=== PATIENT | male | born 1950 | race Caucasian/White ===

== ENCOUNTER 2021-10-21 22:22 | Inpatient (IN) | payer MEDICARE, BC, SELFPAY ==
[2021-10-21 22:27] VITALS: BP 144/82; RESP 22; TEMP 35.9; O2SAT 96
--- NOTE | 2021-10-21 23:09 | CRLHL7_ITS ---
For Patients: As a result of the 21st Century Cures Act, medical imaging exams and procedure reports are released immediately into your electronic medical record. You may view this report before your referring provider. If you have questions, please contact your health care provider. INDICATION: Three days of vomiting and diarrhea. Increasing abdominal pain in the lower right side. History of kidney transplant, liver transplant, and bilateral total hip arthroplasty. COMPARISON: None available TECHNIQUE: CT examination of the abdomen and pelvis was performed without contrast enhancement using 3 mm thick axial sections from the lung bases through the pubic symphysis. Oral contrast was not administered. Please note that all CT scans at this facility use dose modulation, iterative reconstruction, and/or weight-based dosing when appropriate to reduce radiation dose to as low as reasonably achievable. FINDINGS: In the abdomen, the unenhanced liver is small, measuring 12.9 centimeters in length. Multiple surgical clips are seen along the inferior margin of the liver and around the IVC consistent with liver transplantation. The spleen is mildly enlarged, measuring 14.1 centimeters in length, with no sign of any mass. The pancreas and adrenals are normal in appearance. There is mild bilateral renal atrophy. The kidneys are otherwise normal in appearance. The gallbladder is absent, consistent with liver transplantation. The abdominal aorta is normal in caliber with no sign of dilatation. There is no sign of retroperitoneal mass or adenopathy. The stomach and loops of small bowel in the abdomen are normal in appearance. There is moderate diverticulosis of the colon throughout the abdomen, with no sign of diverticulitis. The cecum is located in the right mid abdomen, with the appendix extending into the right lower quadrant. The appendix shows no sign of inflammatory process to suggest appendicitis. There is a small fat containing periumbilical hernia. There is a right anterior superior pelvic transplant kidney with no sign of hydronephrosis. There is severe sigmoid diverticulosis without evidence of diverticulitis. The loops of small bowel and rectum in the pelvis are otherwise normal in appearance. The area of the prostate in inferior urinary bladder is obscured by prominent streak artifact from bilateral total hip prostheses. There is no sign of pelvic or inguinal mass or adenopathy. There is a moderate-sized fat containing left inguinal hernia. There is no sign of free air or free fluid in the abdomen or pelvis. The lung bases are clear. There is grade 1 anterior subluxation of L4 on L5 with mild L4-5 disc degenerative disease. IMPRESSION: Nothing seen to explain the patient`s vomiting or diarrhea. No sign of bowel dilatation or any inflammatory process involving the bowel. Nothing seen to explain the patient`s right lower abdominal pain, with normal appearance of the appendix and normal appearance of the right pelvic transplant kidney. CT of the abdomen shows moderate diverticulosis of the entire colon in the abdomen with no sign of diverticulitis. Satisfactory appearance of transplant liver. Mild splenomegaly of uncertain etiology. Mild bilateral renal atrophy. CT of the pelvis shows severe diverticulosis of the sigmoid colon with no sign of diverticulitis. Moderate-sized, fat containing left inguinal hernia. Right pelvic transplant kidney is normal in appearance. Please note that all CT scans at this facility use dose modulation, iterative reconstruction, and/or weight-based dosing when appropriate to reduce radiation dose to as low as reasonably achievable. Dictated by Zeb Elias MD @ 10/22/2021 12:10:50 AM (Electronically Signed)
[2021-10-21 23:13] LABS: Glucose, Point-of-Care* 208 mg/dl (60-115)
[2021-10-21 23:23] LABS: HCO3 VBG 20 mmol/L (21-28); PCO2 VBG 24 mmHG (40-50); PO2 VBG 42.4 mmHG (25-47); pH VBG 7.531 (7.32-7.43)
[2021-10-21] MEDS: ONDANSETRON 2 MG/ML inj 4 MG IVP (23:28)
[2021-10-21] MEDS: HYDROmorphone 0.5 mg/0.5 ml inj IVP (23:28)
[2021-10-21] MEDS: 0.9 % SODIUM CHLORIDE 1000 ml 1,000 ML IV (23:29)
[2021-10-21 23:30] VITALS: BP 174/91; PULSE 74; RESP 16; O2SAT 94
[2021-10-21 23:36] LABS: Basophils Percent Auto 0.3 % (0.0-3.0); Eosinophils Percent Auto 0.6 % (0.0-7.0); Hematocrit 36.8 % (37.0-53.0); Hemoglobin* 12.9 gm/dL (13.5-17.5); Immature Granulocytes Abs Auto 0.01 K/uL (0.00-0.30); Lymphocytes Percent Auto 8.5 % (20-44); Mean Corpuscular HGB Conc 35 gm/dL (32-36); Mean Corpuscular Hemoglobin 34 pg (26-34); Mean Corpuscular Volume 96 fL (80-100); Monocytes Percent Auto 7.1 % (0.0-11.0); Neutrophils Percent Auto 83.2 % (42.0-72.0); Platelet Count* 145 K/uL (140-440); RDW Coefficient of Variation % 14.8 % (11.5-15.5); Red Blood Count 3.83 m/uL (4.30-5.90); White Blood Count* 3.54 K/uL (4.50-11.00)
[2021-10-21 23:43] LABS: Albumin* 4.7 g/dL (3.3-5.0); Chloride* 101 mmol/L (96-114)
[2021-10-21 23:44] LABS: Potassium* 5.8 mmol/L (3.6-5.1); Sodium* 134 mmol/L (135-149)
[2021-10-21 23:46] LABS: Bilirubin Direct* 0.4 mg/dL (0.0-0.5); Bilirubin Total* 3.8 mg/dL (0.1-1.5); Carbon Dioxide* 18 mmol/L (20-32); Creatinine* 1.9 mg/dL (0.5-1.5); Estimated Glomerular Filt Rate 37.71; Lipase* 39 U/L (23-300); Total Protein* 7.6 g/dL (6.0-8.3)
[2021-10-21 23:46] LABS: Slide Review Reflex No
[2021-10-21 23:47] LABS: Alanine Aminotransferase* 12 U/L (4-50); Alkaline Phosphatase* 98 U/L (40-150); Aspartate Amino Transferase* 30 U/L (12-35); Blood Urea Nitrogen* 24 mg/dL (7-30); Calcium* 9.7 mg/dL (8.4-10.6); Ethanol* < 0.01 % (0.01-0.03); Glucose* 199 mg/dL (60-115)
[2021-10-22] VITALS (34 sets, daily range): BP systolic 138–206; BP diastolic 61–123; PULSE 82–123; RESP 10–23; TEMP 36.4–36.7; O2SAT 92–100; BMI 29231.5
[2021-10-22 00:34] LABS: SARS PCR* Negative SARS-CoV-2 (Negative)
[2021-10-22] MEDS: 0.9 % SODIUM CHLORIDE 1000 ml 1,000 ML IV ×2 (00:58→15:31)
[2021-10-22 01:04] LABS: Influenza Type A Negative (Negative); Influenza Type B Negative (Negative)
[2021-10-22 01:07] LABS: Appearance Urine Clear (Clear); Bilirubin Urine 1+ (Negative); Blood Urine Negative (Negative); Color Urine Yellow (Yellow); Glucose Urine Negative (Negative); Ketones Urine 4+ (Negative); Leukocyte Esterase Urine Negative (Negative); Nitrite Urine Negative (Negative); Protein Urine Trace (Negative); Specific Gravity Urine 1.015 (1.000-1.030); Urobilinogen Urine 0.2 (0.2-1.0)
[2021-10-22 01:24] LABS: Bacteria Urine Few; RBC Urine 0-2 (0-2); Squamous Epithelial Cell Urine Few (None-Few); WBC Urine 0-2 (0-5)
[2021-10-22] MEDS: diphenhydrAMINE 50 MG/ML inj 25 MG IVP (02:20)
[2021-10-22] MEDS: HYDROmorphone 0.5 mg/0.5 ml inj 1 MG IVP ×5 (02:21→22:48)
[2021-10-22] MEDS: METOCLOPRAMIDE HCL 10 MG in 0.9 % SODIUM CHLORIDE 100 ml 100 ML 306 MG IVPB (02:23)
[2021-10-22] MEDS: GI COCKTAIL (VISC LIDO/ANTACID) 30 ML PO (02:42)
[2021-10-22 04:47] LABS: HCO3 VBG 22 mmol/L (21-28); PCO2 VBG 34 mmHG (40-50); PO2 VBG 56.4 mmHG (25-47); pH VBG 7.427 (7.32-7.43)
[2021-10-22 04:57] LABS: Troponin, Point-of-Care* 0.06 ng/ml (0.01-0.04)
--- NOTE | 2021-10-22 04:58 | ED.NURSE ---
POC Trop 0.06 update to MD Triplett.
[2021-10-22 05:02] LABS: Chloride* 102 mmol/L (96-114); Sodium* 136 mmol/L (135-149)
--- NOTE | 2021-10-22 05:04 | ED.NURSE ---
Patient medical history obtained from previous H&P on [facility].
[2021-10-22 05:05] LABS: Blood Urea Nitrogen* 25 mg/dL (7-30); Carbon Dioxide* 20 mmol/L (20-32); Creatinine* 1.6 mg/dL (0.5-1.5); Estimated Glomerular Filt Rate 46.35
[2021-10-22 05:06] LABS: Calcium* 8.9 mg/dL (8.4-10.6); Glucose* 247 mg/dL (60-115)
[2021-10-22 05:56] LABS: Troponin I* 0.12 ng/mL (0.01-0.04)
--- NOTE | 2021-10-22 05:56 | ED.NURSE ---
critical : Trop I 0.12 updated to MD Triplett.
[2021-10-22] MEDS: HYDROCODONE-ACETAMIN 5-325 MG 1 TAB 2 TAB PO (06:00)
--- NOTE | 2021-10-22 06:22 | ED_ITS ---
HPI - Nausea/Vomiting/Diarrhea General Chief complaint: Nausea/Vomiting/Diarrhea Stated complaint: n/v/d Time Seen by Provider: 10/21/21 22:32 Source: patient, RN notes reviewed and old records reviewed History of Present Illness HPI Narrative: 71-year-old man presenting to the emergency department brought by [facility] with complaint of 3 days of nausea vomiting diarrhea. He is not noted any hematochezia or hematemesis or melena; Says his vomit this and diarrhea look the same. His white T-shirt is stained with yellow-green emesis. Last noted in this facility dated September of 2020 where he received surgery for osteomyelitis of the right 2nd toe with diabetes. He had said he took his insulin pump off today noting it was empty and he was too sick to fill it. He also has not been eating anyway. Stomach pain began with the vomiting and diar eva. Is says he has a similar history with diverticulitis. For chronic pain does have oxycodone available but says he has not been able to take it though is continuing treatment with his fentanyl patch indicates his right upper arm. His Said he had not taken oxycodone regularly anyway. otherwise no recent medication changes. Underlying history of renal and liver transplant. He has not had any fever. is not short of breath other than when vomiting. He is not complaining of chest pain; just pain all over initially. Is not complaining of any dysuria. is thirsty. Notes no alcohol ingestion for 5 years or so. 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 Abstracted [facility] record. Congestive heart failure Chronic diastolic History of alcohol abuse History of colon polyps Erectile dysfunction History of folic acid deficiency (non-anemic) GERD (gastroesophageal reflux disease) Controlled substance agreement signed w/ [facility] on 04/19/18. See scanned note. Tendinosis of left shoulder No surgery rcmd. See scanned 07/19/17 FBO note [place]. 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 See scanned [facility] optometry note. History of hernia repair History of bilateral hip arthroplasty PABLO L 08/30/07, R 07/22/10. See scanned Op notes. History of decompression of ulnar nerve Left History of kidney transplant surgery/partial amputation right 2nd toe for osteomyelitis Historical Problems Medical Problems: Depression Reason for Deletion: Mr. Mora does not recall his medications - this list is from his last clinic visit Fentanyl Patch (Fentanyl Patch) 25 Mcg/Hr Patch 1 PATCH TD Q72H, #10 PATCH 0 Refills Prov: Rubén Boyle MD 09/03/21 Oxycodone Hcl (Oxycodone Hcl) 10 Mg Tab 10 MG PO TID PRN for Severe Pain, #90 TAB 0 Refills Prov: Rubén Boyle MD 08/14/21 Furosemide (Lasix) 20 Mg Tab 20 MG PO DAILY, #90 TAB Prov: Rubén Boyle MD 08/11/21 Atorvastatin Calcium (Atorvastatin Calcium) 20 Mg Tab 20 MG PO DAILY, #90 TAB 3 Refills Prov: Rubén Boyle MD 08/11/21 Multiple Vitamin (Tab-A-Stacy) Tab 1 EA PO DAILY, #90 TAB 3 Refills Prov: Rubén Boyle MD 08/11/21 Citalopram Hydrobromide (Citalopram Hydrobromide) 40 Mg Tab 40 MG PO DAILY, #90 TABLET 3 Refills Prov: Rubén Boyle MD 08/11/21 Cholecalciferol (Vitamin D) Unknown Strength Cap PO DAILY, CAP Reported 08/11/21 Tamsulosin Hcl (Tamsulosin Hcl) 0.4 Mg Cap 0.4 MG PO DAILY, #90 CAP 3 Refills Prov: Rubén Boyle MD 07/14/21 Gabapentin (Gabapentin) 600 Mg Tab 1200 MG PO TID PRN for Pain, #540 TAB 1 Refill Prov: Rubén Boyle MD 08/06/20 Insulin Aspart (Novolog Vial) 100 Unit/Ml Inj 100 UNIT SUBQ DAILY, #10 BOTTLE 12 Refills Prov: Rubén Boyle MD 07/08/20 Doxazosin Mesylate (Cardura) 2 Mg Tab 2 MG PO HS, #30 TAB 1 Refill Prov: Rubén Boyle MD 11/07/19 Tadalafil (Cialis) 20 Mg Tab 20 MG PO PRN, #3 TAB Prov: Rubén Boyle MD 05/17/19 Magnesium Oxide (Magnesium Oxide) 400 Mg Tab 400 MG PO QPM, #100 TAB Reported 07/07/18 Omeprazole (Omeprazole) 20 Mg Cap 20 MG PO DAILY, #30 CAP Reported 07/07/18 Azathioprine (Azathioprine) 50 Mg Tab 3 TAB PO QAM, #90 TAB Reported 07/07/18 Tacrolimus (Tacrolimus) 0.5 Mg Cap 2-3 CAP OR BID, CAP Reported 07/07/18 Aspirin (Aspir-81) 81 Mg Tab 81 MG PO DAILY, TAB Reported 07/07/18 Related Data Allergies Allergy/AdvReac Type Severity Reaction Status Date / Time No Known Drug Allergies Allergy Verified 10/22/21 02:39 Review of Systems Status of ROS: Reports: 6 or more systems reviewed and unremarkable except as noted in History and below PFSH [facility] Medical History CHF (congestive heart failure) Diabetic neuropathy Diverticulosis GERD (gastroesophageal reflux disease) History of ETOH abuse HTN (hypertension) Hyperlipidemia Mitral regurgitation Type 2 diabetes mellitus Surgical History History of hip replacement Hx of hernia repair Kidney transplant recipient Liver transplant recipient Transplant recipient Social History Smoking Status: Former smoker Do you use any of these nicotine containing products: None Second hand tobacco smoke exposure: No How often do you have a drink containing alcohol: never AUDIT-C Alcohol total score: 0 Non-prescribed substance use: denies use Exam Narrative: Exam Narrative: Mr. Mora does seem to be rather uncomfortable. When I enter the room I believe I smelled ketones. has an emesis bag with him. White T-shirt stained With yellow-green drops of emesis. He is easily conversant. Fully alert But seems tired/fatigued. intermittently breathless. Cranial nerves 2-12 to be intact. Head is atraumatic. the looks to be a small subconjunctival hemorrhage in the inferolateral left eye sclera. Oropharynx with whitish-yellow staining to his tongue, sticky. He is missing some teeth. No inflammatory changes. neck is supple without LA. lungs appear to be clear with equal expansion excursion. CV RRR. 2/6 mid systolic murmur. ( murmur has been noted prior) No gallops no rubs. Abdomen with bowel sounds present. Obese. Large surgical scars. Diffusely tender especially through the low abdomen and even more so into the right lower abdomen. Extremities is moving all extremities without difficulty. Appears well perfused. There are however chronic changes Of hemosiderin deposition and thickened toenails, and noted partial amputation of right 2nd toe. No Erythema or other acute inflammatory change appreciated. fentanyl patch on right upper arm Const: Vital Signs, click to edit/add: Vital Signs - 24 hr 10/21/21 22:27 10/21/21 23:30 10/22/21 00:30 Temperature 96.7 F L Pulse Rate [Left P ulse Oximeter] 74 90 Pulse Rate [Pulse Oximeter] Respiratory Rate 22 16 16 Blood Pressure [Ri ght Upper Arm] 144/82 H 174/91 H 151/61 H Pulse Oximetry 96 94 94 10/22/21 01:30 10/22/21 02:46 10/22/21 04:35 Temperature Pulse Rate [Left P ulse Oximeter] 96 Pulse Rate [Pulse Oximeter] 111 H Respiratory Rate 18 18 Blood Pressure [Ri ght Upper Arm] 166/87 H 163/102 H Pulse Oximetry 96 94 10/22/21 04:40 10/22/21 05:10 10/22/21 05:45 Temperature 98.1 F Pulse Rate [Left P ulse Oximeter] 111 H 108 H 104 H Pulse Rate [Pulse Oximeter] Respiratory Rate 18 18 18 Blood Pressure [Ri ght Upper Arm] 203/110 H 206/109 H 198/112 H Pulse Oximetry 98 97 98 10/22/21 07:00 10/22/21 07:30 10/22/21 07:56 Temperature 97.9 F Pulse Rate [Left P ulse Oximeter] 106 H 107 H 110 H Pulse Rate [Pulse Oximeter] Respiratory Rate 23 Blood Pressure [Ri ght Upper Arm] 201/116 H 201/107 H 184/101 H Pulse Oximetry 97 96 98 10/22/21 08:00 10/22/21 08:28 10/22/21 08:30 Temperature Pulse Rate [Left P ulse Oximeter] 110 H 123 H Pulse Rate [Pulse Oximeter] Respiratory Rate 16 Blood Pressure [Ri ght Upper Arm] 165/80 H 162/89 H 156/104 H Pulse Oximetry 97 96 98 10/22/21 08:50 10/22/21 08:55 10/22/21 09:00 Temperature Pulse Rate [Left P ulse Oximeter] 118 H 118 H 118 H Pulse Rate [Pulse Oximeter] Respiratory Rate 14 14 Blood Pressure [Ri ght Upper Arm] 143/79 H 174/99 H 157/97 H Pulse Oximetry 92 94 93 10/22/21 09:30 Temperature 97.7 F Pulse Rate [Left P ulse Oximeter] 114 H Pulse Rate [Pulse Oximeter] Respiratory Rate 14 Blood Pressure [Ri ght Upper Arm] 184/96 H Pulse Oximetry 96 Course Course Hospital Course: clearly uncomfortable And in some degree of dehydration. given what I smell in the room and would have concern for DKA. Fluids are initiated labs. See below. With severe pain described as well As reproducible abdominal pain reporting similar history withdiverticulitis did order imaging cognizant of immunosuppression. CT abdomen and pelvis was unremarkable/ Absent of acute abnormalities. Labs with sodium and elevated potassium I think representing a combination of dehydration and hyperglycemia. Was not actually acidotic; probably breathing off CO2. Urinalysis with 4+ ketones. Initial creatinine is 1.9 at what looks to be near baseline. Is initiated on normal saline fluid resuscitation with Zofran for initial antiemetic Dilaudid for pain. Still with nausea and vomiting further added diphenhydramine and metoclopramide. Nursing at one point tested vomitus which was as expected positive for guaiac. Not grossly bloody. Then later complaining of some burning in chest noting his history of reflux. Trial of GI cocktail which initially seems to have helped but then chest discomfort continued. pulse rate has crept up to tachycardic in tableau lead hours. EKG and comparison cardiac labs are done. With initial lab draw point of care had been done measuring 0.01. EKG reviewed by me shows normal sinus at 100. Repeat troponin I point of care is 0.06. comparison though in the lab measuring 0.12 from same blood draw. Repeat chemistries show improvement overall. Pending yet is proBNP. BNP is both elevated initially on lab draw in the 500s repeat lab draw, following fluid resuscitation in the 600s. Vital Signs Vital signs: Initial Vital Signs Temperature 96.7 F L 10/21/21 22:27 Temperature Source Temporal Artery Scan 10/21/21 22:27 Respiratory Rate 22 10/21/21 22:27 Blood Pressure 144/82 H 10/21/21 22:27 Blood Pressure Mean 102 10/21/21 22:27 Blood Pressure Position Supine 10/21/21 22:27 Pulse Oximetry 96 10/21/21 22:27 Oxygen Delivery Method 10/21/21 22:27 Vital Signs Temperature 96.7 F L 10/21/21 22:27 Respiratory Rate 22 10/21/21 22:27 Blood Pressure 144/82 H 10/21/21 22:27 Pulse Oximetry 96 10/21/21 22:27 Temperature 97.7 F 10/22/21 09:30 Pulse Rate 114 H 10/22/21 09:30 Respiratory Rate 14 10/22/21 09:30 Blood Pressure 184/96 H 10/22/21 09:30 Pulse Oximetry 96 10/22/21 09:30 MDM - Nausea/Vomiting/Diarrhea MDM Narrative Medical decision making narrative: Continues to struggle with nausea and complaints of abdominal pain. Had thought perhaps there might be some degree of opiate withdrawal. Throughout the night I was anticipating Mr. Mora would turn the corner. Does not feel much improvement though there has been some improvement as evidenced in the labs with fluid resuscitation. for further complaints of abdominal pain though I am trying hyoscyamine and dose of lorazepam. Repeat EKG at 8:15 a.m. shows a rate of [address] elevations depressions no Q-waves. This is reviewed by me. blood pressure still remained elevated though improved. Some of these higher blood pressures are correlating with nausea I think. Yet another troponin I point of care is 0.19. If correlates with difference in lab troponin as before,would anticipate formal lab troponin I to be 0.25 -- However pending this result at this time. Still with abdominal pain complaints. Perhaps nitroglycerin helpful here even more so in light what seems to be an elevating troponin. Certainly might be helpful with blood pressures. I had anticipated placement at this facility though will begin looking elsewhere. I do have concern of sepsis. He has received 2 L of normal saline. Blood cultures were drawn on arrival and are pending. 8:44 a.m.Vomitus has become maroonish tinged. has received 2 nitro SL. Blood pressure 140s over 70s. Pain seems to be improved somewhat. Clearly though Mr. Mora is uncomfortable and does still complain of abdominal pain. I am anticipating calling for transport to another facility. indeed confirmatory lab troponin I returns at 0.33. We will be adding another L of lactated Ringer's. and sepsis protocol antibiotics with Zosyn and vancomycin. holding nitro drip. repeat lactate reported at 2.3 More comfortable having received 3rd dose of Dilaudid. Unable to find regional accommodations for Mr. Mora, we will be admitting here. Our hospitalist is graciously accepting. . Medical Records Attestation: I reviewed the patient's medical records. Lab Data Attestation: I reviewed the patient's lab results. Lab results narrative: INDICATION: Three days of vomiting and diarrhea. Increasing abdominal pain in the lower right side. History of kidney transplant, liver transplant, and bilateral total hip arthroplasty. COMPARISON: None available TECHNIQUE: CT examination of the abdomen and pelvis was performed without contrast enhancement using 3 mm thick axial sections from the lung bases through the pubic symphysis. Oral contrast was not administered. Please note that all CT scans at this facility use dose modulation, iterative reconstruction, and/or weight-based dosing when appropriate to reduce radiation dose to as low as reasonably achievable. FINDINGS: In the abdomen, the unenhanced liver is small, measuring 12.9 centimeters in length. Multiple surgical clips are seen along the inferior margin of the liver and around the IVC consistent with liver transplantation. The spleen is mildly enlarged, measuring 14.1 centimeters in length, with no sign of any mass. The pancreas and adrenals are normal in appearance. There is mild bilateral renal atrophy. The kidneys are otherwise normal in appearance. The gallbladder is absent, consistent with liver transplantation. The abdominal aorta is normal in caliber with no sign of dilatation. There is no sign of retroperitoneal mass or adenopathy. The stomach and loops of small bowel in the abdomen are normal in appearance. There is moderate diverticulosis of the colon throughout the abdomen, with no sign of diverticulitis. The cecum is located in the right mid abdomen, with the appendix extending into the right lower quadrant. The appendix shows no sign of inflammatory process to suggest appendicitis. There is a small fat containing periumbilical hernia. There is a right anterior superior pelvic transplant kidney with no sign of hydronephrosis. There is severe sigmoid diverticulosis without evidence of diverticulitis. The loops of small bowel and rectum in the pelvis are otherwise normal in appearance. The area of the prostate in inferior urinary bladder is obscured by prominent streak artifact from bilateral total hip prostheses. There is no sign of pelvic or inguinal mass or adenopathy. There is a moderate-sized fat containing left inguinal hernia. There is no sign of free air or free fluid in the abdomen or pelvis. The lung bases are clear. There is grade 1 anterior subluxation of L4 on L5 with mild L4-5 disc degenerative disease. ? IMPRESSION: Nothing seen to explain the patient`s vomiting or diarrhea. No sign of bowel dilatation or any inflammatory process involving the bowel. Nothing seen to explain the patient`s right lower abdominal pain, with normal appearance of the appendix and normal appearance of the right pelvic transplant kidney. CT of the abdomen shows moderate diverticulosis of the entire colon in the abdomen with no sign of diverticulitis. Satisfactory appearance of transplant liver. Mild splenomegaly of uncertain etiology. Mild bilateral renal atrophy. CT of the pelvis shows severe diverticulosis of the sigmoid colon with no sign of diverticulitis. Moderate-sized, fat containing left inguinal hernia. Right pelvic transplant kidney is normal in appearance. Please note that all CT scans at this facility use dose modulation, iterative reconstruction, and/or weight-based dosing when appropriate to reduce radiation dose to as low as reasonably achievable. Dictated by Zeb Elias MD @ 10/22/2021 12:10:50 AM Labs: Lab Results 10/21/21 10/21/21 10/21/21 Range/Units 22:45 22:45 22:45 WBC 3.54 L (4.50-11.00) K/uL RBC 3.83 L (4.30-5.90) m/uL Hgb 12.9 L (13.5-17.5) gm/dL Hct 36.8 L (37.0-53.0) % MCV 96 (80-100) fL MCH 34 (26-34) pg MCHC 35 (32-36) gm/dL RDW Coeff of [place] 14.8 (11.5-15.5) % Plt Count 145 (140-440) K/uL Neut % (Auto) 83.2 H (42.0-72.0) % Lymph % (Auto) 8.5 L (20-44) % [place] % (Auto) 7.1 (0.0-11.0) % Eos % (Auto) 0.6 (0.0-7.0) % Baso % (Auto) 0.3 (0.0-3.0) % Neut # (Auto) 2.90 (1.7-7.0) K/uL Lymph # (Auto) 0.30 L (0.90-2.90) K/uL [place] # (Auto) 0.30 (0.00-0.90) K/UL Eos # (Auto) 0.00 (0.00-0.50) K/uL Baso # (Auto) 0.00 (0.00-0.30) K/uL Abs Immat Gran (auto) 0.01 (0.00-0.30) K/uL VBG pH (7.32-7.43) VBG pCO2 (40-50) mmHG VBG pO2 (25-47) mmHG VBG HCO3 (21-28) mmol/L Sodium (135-149) mmol/L Potassium (3.6-5.1) mmol/L Chloride (96-114) mmol/L Carbon Dioxide (20-32) mmol/L BUN (7-30) mg/dL Creatinine (0.5-1.5) mg/dL Glucose (60-115) mg/dL Calcium (8.4-10.6) mg/dL Total Bilirubin (0.1-1.5) mg/dL Direct Bilirubin (0.0-0.5) mg/dL AST (12-35) U/L ALT (4-50) U/L Alkaline Phosphatase (40-150) U/L Troponin I (0.01-0.04) ng/mL NT-Pro-B Natriuret Pep (0-125) PG/mL Total Protein (6.0-8.3) g/dL Albumin (3.3-5.0) g/dL Lipase (23-300) U/L Urine Color (Yellow) Urine Appearance (Clear) Urine pH (5.0-8.5) Ur Specific [place] (1.000-1.030) Urine Protein (Negative) Urine Glucose (UA) (Negative) Urine Ketones (Negative) Urine Blood (Negative) Urine Nitrite (Negative) Urine Bilirubin (Negative) Urine Urobilinogen (0.2-1.0) Ur Leukocyte Esterase (Negative) Urine RBC (0-2) Urine WBC (0-5) Ur Squamous Epith Cells (None-Few) Urine Bacteria (None) Ethyl Alcohol (0.01-0.03) % SARS-CoV-2 (PCR) (Negative) Influenza Type A Ag (Negative) Influenza Type B Ag (Negative) POC Glucose 208 H (60-115) mg/dl POC Troponin I 0.01 (0.01-0.04) ng/ml 10/21/21 10/21/21 10/21/21 Range/Units 23:10 23:10 23:10 WBC (4.50-11.00) K/uL RBC (4.30-5.90) m/uL Hgb (13.5-17.5) gm/dL Hct (37.0-53.0) % MCV (80-100) fL MCH (26-34) pg MCHC (32-36) gm/dL RDW Coeff of [place] (11.5-15.5) % Plt Count (140-440) K/uL Neut % (Auto) (42.0-72.0) % Lymph % (Auto) (20-44) % [place] % (Auto) (0.0-11.0) % Eos % (Auto) (0.0-7.0) % Baso % (Auto) (0.0-3.0) % Neut # (Auto) (1.7-7.0) K/uL Lymph # (Auto) (0.90-2.90) K/uL [place] # (Auto) (0.00-0.90) K/UL Eos # (Auto) (0.00-0.50) K/uL Baso # (Auto) (0.00-0.30) K/uL Abs Immat Gran (auto) (0.00-0.30) K/uL VBG pH 7.531 H (7.32-7.43) VBG pCO2 24 L (40-50) mmHG VBG pO2 42.4 (25-47) mmHG VBG HCO3 20 L (21-28) mmol/L Sodium 134 L (135-149) mmol/L Potassium 5.8 H (3.6-5.1) mmol/L Chloride 101 (96-114) mmol/L Carbon Dioxide 18 L (20-32) mmol/L BUN 24 (7-30) mg/dL Creatinine 1.9 H (0.5-1.5) mg/dL Glucose 199 H (60-115) mg/dL Calcium 9.7 (8.4-10.6) mg/dL Total Bilirubin 3.8 H (0.1-1.5) mg/dL Direct Bilirubin 0.4 (0.0-0.5) mg/dL AST 30 (12-35) U/L ALT 12 (4-50) U/L Alkaline Phosphatase 98 (40-150) U/L Troponin I (0.01-0.04) ng/mL NT-Pro-B Natriuret Pep 597 H (0-125) PG/mL Total Protein 7.6 (6.0-8.3) g/dL Albumin 4.7 (3.3-5.0) g/dL Lipase (23-300) U/L Urine Color (Yellow) Urine Appearance (Clear) Urine pH (5.0-8.5) Ur Specific [place] (1.000-1.030) Urine Protein (Negative) Urine Glucose (UA) (Negative) Urine Ketones (Negative) Urine Blood (Negative) Urine Nitrite (Negative) Urine Bilirubin (Negative) Urine Urobilinogen (0.2-1.0) Ur Leukocyte Esterase (Negative) Urine RBC (0-2) Urine WBC (0-5) Ur Squamous Epith Cells (None-Few) Urine Bacteria (None) Ethyl Alcohol < 0.01 L (0.01-0.03) % SARS-CoV-2 (PCR) (Negative) Influenza Type A Ag (Negative) Influenza Type B Ag (Negative) POC Glucose (60-115) mg/dl POC Troponin I (0.01-0.04) ng/ml 10/21/21 10/21/21 10/22/21 Range/Units 23:10 23:17 00:18 WBC (4.50-11.00) K/uL RBC (4.30-5.90) m/uL Hgb (13.5-17.5) gm/dL Hct (37.0-53.0) % MCV (80-100) fL MCH (26-34) pg MCHC (32-36) gm/dL RDW Coeff of [place] (11.5-15.5) % Plt Count (140-440) K/uL Neut % (Auto) (42.0-72.0) % Lymph % (Auto) (20-44) % [place] % (Auto) (0.0-11.0) % Eos % (Auto) (0.0-7.0) % Baso % (Auto) (0.0-3.0) % Neut # (Auto) (1.7-7.0) K/uL Lymph # (Auto) (0.90-2.90) K/uL [place] # (Auto) (0.00-0.90) K/UL Eos # (Auto) (0.00-0.50) K/uL Baso # (Auto) (0.00-0.30) K/uL Abs Immat Gran (auto) (0.00-0.30) K/uL VBG pH (7.32-7.43) VBG pCO2 (40-50) mmHG VBG pO2 (25-47) mmHG VBG HCO3 (21-28) mmol/L Sodium (135-149) mmol/L Potassium (3.6-5.1) mmol/L Chloride (96-114) mmol/L Carbon Dioxide (20-32) mmol/L BUN (7-30) mg/dL Creatinine (0.5-1.5) mg/dL Glucose (60-115) mg/dL Calcium (8.4-10.6) mg/dL Total Bilirubin (0.1-1.5) mg/dL Direct Bilirubin (0.0-0.5) mg/dL AST (12-35) U/L ALT (4-50) U/L Alkaline Phosphatase (40-150) U/L Troponin I (0.01-0.04) ng/mL NT-Pro-B Natriuret Pep (0-125) PG/mL Total Protein (6.0-8.3) g/dL Albumin (3.3-5.0) g/dL Lipase 39 (23-300) U/L Urine Color (Yellow) Urine Appearance (Clear) Urine pH (5.0-8.5) Ur Specific [place] (1.000-1.030) Urine Protein (Negative) Urine Glucose (UA) (Negative) Urine Ketones (Negative) Urine Blood (Negative) Urine Nitrite (Negative) Urine Bilirubin (Negative) Urine Urobilinogen (0.2-1.0) Ur Leukocyte Esterase (Negative) Urine RBC (0-2) Urine WBC (0-5) Ur Squamous Epith Cells (None-Few) Urine Bacteria (None) Ethyl Alcohol (0.01-0.03) % SARS-CoV-2 (PCR) Negative SARS-CoV-2 (Negative) Influenza Type A Ag Negative (Negative) Influenza Type B Ag Negative (Negative) POC Glucose (60-115) mg/dl POC Troponin I (0.01-0.04) ng/ml 10/22/21 10/22/21 10/22/21 Range/Units 01:01 04:40 04:40 WBC (4.50-11.00) K/uL RBC (4.30-5.90) m/uL Hgb (13.5-17.5) gm/dL Hct (37.0-53.0) % MCV (80-100) fL MCH (26-34) pg MCHC (32-36) gm/dL RDW Coeff of [place] (11.5-15.5) % Plt Count (140-440) K/uL Neut % (Auto) (42.0-72.0) % Lymph % (Auto) (20-44) % [place] % (Auto) (0.0-11.0) % Eos % (Auto) (0.0-7.0) % Baso % (Auto) (0.0-3.0) % Neut # (Auto) (1.7-7.0) K/uL Lymph # (Auto) (0.90-2.90) K/uL [place] # (Auto) (0.00-0.90) K/UL Eos # (Auto) (0.00-0.50) K/uL Baso # (Auto) (0.00-0.30) K/uL Abs Immat Gran (auto) (0.00-0.30) K/uL VBG pH (7.32-7.43) VBG pCO2 (40-50) mmHG VBG pO2 (25-47) mmHG VBG HCO3 (21-28) mmol/L Sodium 136 (135-149) mmol/L Potassium 5.0 (3.6-5.1) mmol/L Chloride 102 (96-114) mmol/L Carbon Dioxide 20 (20-32) mmol/L BUN 25 (7-30) mg/dL Creatinine 1.6 H (0.5-1.5) mg/dL Glucose 247 H (60-115) mg/dL Calcium 8.9 (8.4-10.6) mg/dL Total Bilirubin (0.1-1.5) mg/dL Direct Bilirubin (0.0-0.5) mg/dL AST (12-35) U/L ALT (4-50) U/L Alkaline Phosphatase (40-150) U/L Troponin I 0.12 H* (0.01-0.04) ng/mL NT-Pro-B Natriuret Pep 682 H (0-125) PG/mL Total Protein (6.0-8.3) g/dL Albumin (3.3-5.0) g/dL Lipase (23-300) U/L Urine Color Yellow (Yellow) Urine Appearance Clear (Clear) Urine pH 8.0 (5.0-8.5) Ur Specific [place] 1.015 (1.000-1.030) Urine Protein Trace A (Negative) Urine Glucose (UA) Negative (Negative) Urine Ketones 4+ A (Negative) Urine Blood Negative (Negative) Urine Nitrite Negative (Negative) Urine Bilirubin 1+ A (Negative) Urine Urobilinogen 0.2 (0.2-1.0) Ur Leukocyte Esterase Negative (Negative) Urine RBC 0-2 (0-2) Urine WBC 0-2 (0-5) Ur Squamous Epith Cells Few (None-Few) Urine Bacteria Few A (None) Ethyl Alcohol (0.01-0.03) % SARS-CoV-2 (PCR) (Negative) Influenza Type A Ag (Negative) Influenza Type B Ag (Negative) POC Glucose (60-115) mg/dl POC Troponin I 0.06 H (0.01-0.04) ng/ml 10/22/21 10/22/21 10/22/21 Range/Units 04:40 08:05 08:05 WBC (4.50-11.00) K/uL RBC (4.30-5.90) m/uL Hgb (13.5-17.5) gm/dL Hct (37.0-53.0) % MCV (80-100) fL MCH (26-34) pg MCHC (32-36) gm/dL RDW Coeff of [place] (11.5-15.5) % Plt Count (140-440) K/uL Neut % (Auto) (42.0-72.0) % Lymph % (Auto) (20-44) % [place] % (Auto) (0.0-11.0) % Eos % (Auto) (0.0-7.0) % Baso % (Auto) (0.0-3.0) % Neut # (Auto) (1.7-7.0) K/uL Lymph # (Auto) (0.90-2.90) K/uL [place] # (Auto) (0.00-0.90) K/UL Eos # (Auto) (0.00-0.50) K/uL Baso # (Auto) (0.00-0.30) K/uL Abs Immat Gran (auto) (0.00-0.30) K/uL VBG pH 7.427 (7.32-7.43) VBG pCO2 34 L (40-50) mmHG VBG pO2 56.4 H (25-47) mmHG VBG HCO3 22 (21-28) mmol/L Sodium (135-149) mmol/L Potassium (3.6-5.1) mmol/L Chloride (96-114) mmol/L Carbon Dioxide (20-32) mmol/L BUN (7-30) mg/dL Creatinine (0.5-1.5) mg/dL Glucose (60-115) mg/dL Calcium (8.4-10.6) mg/dL Total Bilirubin (0.1-1.5) mg/dL Direct Bilirubin (0.0-0.5) mg/dL AST (12-35) U/L ALT (4-50) U/L Alkaline Phosphatase (40-150) U/L Troponin I 0.33 H* (0.01-0.04) ng/mL NT-Pro-B Natriuret Pep (0-125) PG/mL Total Protein (6.0-8.3) g/dL Albumin (3.3-5.0) g/dL Lipase (23-300) U/L Urine Color (Yellow) Urine Appearance (Clear) Urine pH (5.0-8.5) Ur Specific [place] (1.000-1.030) Urine Protein (Negative) Urine Glucose (UA) (Negative) Urine Ketones (Negative) Urine Blood (Negative) Urine Nitrite (Negative) Urine Bilirubin (Negative) Urine Urobilinogen (0.2-1.0) Ur Leukocyte Esterase (Negative) Urine RBC (0-2) Urine WBC (0-5) Ur Squamous Epith Cells (None-Few) Urine Bacteria (None) Ethyl Alcohol (0.01-0.03) % SARS-CoV-2 (PCR) (Negative) Influenza Type A Ag (Negative) Influenza Type B Ag (Negative) POC Glucose (60-115) mg/dl POC Troponin I 0.19 H (0.01-0.04) ng/ml Discharge Plan Discharge Clinical Impression: Gastroenteritis, Diabetic ketosis, Elevated troponin level, Dehydration, Sepsis Patient Disposition: Admitted As Inpatient Condition: Critical Critical Care Time Critical Care Time Total Critical Care Time in Minutes: 180
[2021-10-22 06:55] LABS: Troponin, Point-of-Care* 0.01 ng/ml (0.01-0.04)
[2021-10-22] MEDS: HYOSCYAMINE SULFATE 0.125 MG TAB 0.25 MG SUBLINGUAL (07:03)
[2021-10-22] MEDS: LORazepam 2 MG/ML inj 0.5 MG IVP (07:03)
[2021-10-22 07:12] LABS: NT Pro B Type NatriureticPept* 682 PG/mL (0-125)
[2021-10-22 07:12] LABS: NT Pro B Type NatriureticPept* 597 PG/mL (0-125)
[2021-10-22 08:23] LABS: Troponin, Point-of-Care* 0.19 ng/ml (0.01-0.04)
[2021-10-22] MEDS: NITROGLYCERIN 0.4 MG TAB.SUBL SUBLINGUAL ×3 (08:26→08:55)
--- NOTE | 2021-10-22 08:27 | ED.NURSE ---
dr zayas was aware of poc trop 0.19. has had nitro 0.4 mg. feels sick and pain in abd and chest. horrible 11/25.
--- NOTE | 2021-10-22 08:33 | ED.NURSE ---
is very uneasy and is moaning in pain. nitro did nothing for him. I can't take it. hr increased to 124.
--- NOTE | 2021-10-22 08:41 | ED.NURSE ---
vomited 150 ml of watery brown gastric secretions.
[2021-10-22] MEDS: MORPHINE 4 MG/ML INJ IVP (08:43)
[2021-10-22 08:53] LABS: Troponin I* 0.33 ng/mL (0.01-0.04)
[2021-10-22] MEDS: PANTOPRAZOLE SODIUM 40 MG INJ IVP (09:21)
--- NOTE | 2021-10-22 09:23 | ED.NURSE ---
dr zayas wants to hold off on the nitro drip and to start lr. he () is now thinking of addy possibly septic. pain is 8/10. seems quieter.
[2021-10-22] MEDS: PIPERACILLIN/TAZOBACTAM 3.375 GM in 0.9 % SODIUM CHLORIDE Mini-bag 100 ML IVPB ×3 (09:43→22:04)
[2021-10-22] MEDS: LACTATED RINGERS 1000 ML IV (09:47)
--- NOTE | 2021-10-22 10:16 | ED.NURSE ---
did start 2nd line #18 in rfa. vanco infusing in rfa not left ac. is complaining of headache /10. pain /10.
[2021-10-22 11:05] LABS: Lactate* 1.4 mmol/L (0.5-1.9)
[2021-10-22 11:06] LABS: Lactate Sepsis w/Reflex* 2.3 mmol/L (0.5-1.9)
[2021-10-22] MEDS: HYDROmorphone 2 MG TABLET 1 MG PO (11:48)
--- NOTE | 2021-10-22 14:03 | PM.IMHP1 ---
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 On the 19 of October he had the gradual but certain onset of nausea, vomiting, loose stools, generalized abdominal discomfort localized most likely in right side. He tells me that he has been steadily and intentionally trying to decrease his oral intake of food, in an effort to lose weight, such that he eats only 1 meal per day plus snacks often on throughout the day. he does not recall eating anything unusual. But since the 19 of October these symptoms have been progressively and steadily worsening. He states he could no longer take it thus he came into the emergency department for assessment late last night. Denies fevers or rigors. Has had episodes of feeling sweaty but not having profuse diaphoresis. Denies headache, myalgias, arthralgias. Has had a very poor appetite over the last few days. His oral intake has decreased substantially over the last few days. Denies blood loss of any sort that he is aware of. Has not had any dysuria, urgency, frequency, or hematuria. Has not had any hematemesis, hematemesis, or melena. has not had any epistaxis or hemoptysis. Has not had any trauma or injury. Denies any recent travel. Denies chest heaviness, pressure, tightness, or pain. Denies dyspnea at rest, paroxysmal nocturnal dyspnea, or orthopnea. Denies syncope or near-syncope. May have had some orthostasis starting today. Denies palpitations. No focal motor neurologic deficits. Does take medicines for blood sugar control. States his blood sugars have been higher than normal. over the last day or so has had significantly more malaise and fatigue. Review of Systems Status of ROS: Reports: 10 or more systems reviewed and unremarkable except as noted in History and below Narrative: See HPI place [facility] Medical History (Updated 10/22/21 @ 14:47 by Chino Bhakta MD) CHF (congestive heart failure) Diabetic neuropathy Diverticulosis GERD (gastroesophageal reflux disease) History of ETOH abuse HTN (hypertension) Hyperlipidemia Mitral regurgitation Type 2 diabetes mellitus Surgical History (Updated 10/22/21 @ 14:33 by Chino Bhakta MD) History of hip replacement Hx of hernia repair Kidney transplant recipient Liver transplant recipient Transplant recipient Social History Smoking Status: Former smoker Do you use any of these nicotine containing products: None Second hand tobacco smoke exposure: No How often do you have a drink containing alcohol: never AUDIT-C Alcohol total score: 0 Non-prescribed substance use: denies use Meds Home Medications and Allergies Home Medications Medication Instructions Recorded Confirmed Type aspirin 81 mg tablet,delayed 81 mg PO DAILY 10/22/21 10/22/21 History release (Adult Aspirin Regimen) atorvastatin 20 mg tablet 20 mg PO HS 10/22/21 10/22/21 History azathioprine 50 mg tablet 150 mg PO DAILY 10/22/21 10/22/21 History cholecalciferol (vitamin D3) 25 1,000 unit PO DAILY 10/22/21 10/22/21 History mcg (1,000 unit) capsule citalopram 40 mg tablet (Celexa) 40 mg PO DAILY 10/22/21 10/22/21 History doxazosin 2 mg tablet 2 mg PO HS 10/22/21 10/22/21 History fentanyl 25 mcg/hr transdermal 1 patch TOPICAL Q72H 10/22/21 10/22/21 History patch furosemide 20 mg tablet 20 mg PO DAILY PRN 10/22/21 10/22/21 History gabapentin 600 mg tablet 600 mg PO BID 10/22/21 10/22/21 History magnesium oxide 400 mg PO DAILY 10/22/21 10/22/21 History multivitamin 1 tab PO DAILY 10/22/21 10/22/21 History omeprazole 20 mg capsule,delayed 20 mg PO DAILY 10/22/21 10/22/21 History release oxycodone 10 mg tablet 10 mg PO TID PRN 10/22/21 10/22/21 History tacrolimus 0.5 mg capsule, 1 mg PO HS 10/22/21 10/22/21 History immediate-release tacrolimus 0.5 mg capsule, 1.5 mg PO QAM 10/22/21 10/22/21 History immediate-release tamsulosin 0.4 mg capsule 0.4 mg PO DAILY 10/22/21 10/22/21 History Home Medication Comments: I reviewed his medications from his [facility] and [facility] outpatient medical record. Noteworthy is that he does take Tacrolimus and azathioprine for chronic immunosuppression due to his liver and kidney transplant status. Allergies Allergy/AdvReac Type Severity Reaction Status Date / Time No Known Drug Allergies Allergy Verified 10/22/21 02:39 Exam Narrative: Exam Narrative: Appears ill. Smells of ketones. Nevertheless he is alert and oriented to self, place, time, situation. Cooperative. Mood and affect are congruent. His buccal mucosa is dry. Dentition in fair repair. No icterus or conjunctival injection. Mild symmetrically decreased hearing bilaterally. Otherwise cranial nerves 3-12 are grossly intact. Moves all 4 extremities. No tremor or asterixis or ataxia. Skin is dry and intact. Aside from patches of dry skin he has no rashes, petechiae, jaundice, or cyanosis. Neck is supple. No lymphadenopathy. Lungs are clear to auscultation without obvious wheezing, rhonchi, or rales. Heart tones with regular rhythm, normal S1-S2. Abdomen is obese with active bowel sounds. Has subjective discomfort to palpation without rebound or guarding. Extremities without edema. Const: Vital Signs, click to edit/add: Vital Signs - 24 hr 10/21/21 22:27 10/21/21 23:30 10/22/21 00:30 Temperature 96.7 F L Pulse Rate [Left P ulse Oximeter] 74 90 Pulse Rate [Pulse Oximeter] Respiratory Rate 22 16 16 Blood Pressure [Le ft Forearm] Blood Pressure [Ri ght Upper Arm] 144/82 H 174/91 H 151/61 H Pulse Oximetry 96 94 94 10/22/21 01:30 10/22/21 02:46 10/22/21 04:35 Temperature Pulse Rate [Left P ulse Oximeter] 96 Pulse Rate [Pulse Oximeter] 111 H Respiratory Rate 18 18 Blood Pressure [Le ft Forearm] Blood Pressure [Ri ght Upper Arm] 166/87 H 163/102 H Pulse Oximetry 96 94 10/22/21 04:40 10/22/21 05:10 10/22/21 05:45 Temperature 98.1 F Pulse Rate [Left P ulse Oximeter] 111 H 108 H 104 H Pulse Rate [Pulse Oximeter] Respiratory Rate 18 18 18 Blood Pressure [Le ft Forearm] Blood Pressure [Ri ght Upper Arm] 203/110 H 206/109 H 198/112 H Pulse Oximetry 98 97 98 10/22/21 07:00 10/22/21 07:30 10/22/21 07:56 Temperature 97.9 F Pulse Rate [Left P ulse Oximeter] 106 H 107 H 110 H Pulse Rate [Pulse Oximeter] Respiratory Rate 23 Blood Pressure [Le ft Forearm] Blood Pressure [Ri ght Upper Arm] 201/116 H 201/107 H 184/101 H Pulse Oximetry 97 96 98 10/22/21 08:00 10/22/21 08:28 10/22/21 08:30 Temperature Pulse Rate [Left P ulse Oximeter] 110 H 123 H Pulse Rate [Pulse Oximeter] Respiratory Rate 16 Blood Pressure [Le ft Forearm] Blood Pressure [Ri ght Upper Arm] 165/80 H 162/89 H 156/104 H Pulse Oximetry 97 96 98 10/22/21 08:50 10/22/21 08:55 10/22/21 09:00 Temperature Pulse Rate [Left P ulse Oximeter] 118 H 118 H 118 H Pulse Rate [Pulse Oximeter] Respiratory Rate 14 14 Blood Pressure [Le ft Forearm] Blood Pressure [Ri ght Upper Arm] 143/79 H 174/99 H 157/97 H Pulse Oximetry 92 94 93 10/22/21 09:30 10/22/21 10:17 10/22/21 10:32 Temperature 97.7 F Pulse Rate [Left P ulse Oximeter] 114 H 112 H 112 H Pulse Rate [Pulse Oximeter] Respiratory Rate 14 10 L 15 Blood Pressure [Le ft Forearm] 185/108 H Blood Pressure [Ri ght Upper Arm] 184/96 H 192/111 H Pulse Oximetry 96 98 10/22/21 11:00 10/22/21 12:00 10/22/21 12:30 Temperature Pulse Rate [Left P ulse Oximeter] 114 H 114 H 116 H Pulse Rate [Pulse Oximeter] Respiratory Rate 16 15 13 Blood Pressure [Le ft Forearm] Blood Pressure [Ri ght Upper Arm] 164/98 H 177/101 H 186/115 H Pulse Oximetry 100 98 98 Hospitalist - H&P: Result Labs Labs: Short CBC 10/21/21 Range/Units 22:45 WBC 3.54 L (4.50-11.00) K/uL Hgb 12.9 L (13.5-17.5) gm/dL Hct 36.8 L (37.0-53.0) % Plt Count 145 (140-440) K/uL BMP 10/21/21 10/22/21 23:10 04:40 Sodium 134 L 136 Potassium 5.8 H 5.0 Chloride 101 102 Carbon Dioxide 18 L 20 BUN 24 25 Creatinine 1.9 H 1.6 H Glucose 199 H 247 H Calcium 9.7 8.9 Cardiac Enzymes 10/22/21 10/22/21 Range/Units 04:40 08:05 Troponin I 0.12 H* 0.33 H* (0.01-0.04) ng/mL Liver Function 10/21/21 Range/Units 23:10 Total Bilirubin 3.8 H (0.1-1.5) mg/dL Direct Bilirubin 0.4 (0.0-0.5) mg/dL AST 30 (12-35) U/L ALT 12 (4-50) U/L Alkaline Phosphatase 98 (40-150) U/L Albumin 4.7 (3.3-5.0) g/dL Urine 10/22/21 Range/Units 01:01 Urine Color Yellow (Yellow) Urine Appearance Clear (Clear) Urine pH 8.0 (5.0-8.5) Ur Specific [place] 1.015 (1.000-1.030) Urine Protein Trace A (Negative) Urine Glucose (UA) Negative (Negative) Assessment and Plan Assessment and plan (1) Nausea and vomiting: Status: Acute (2) Diarrhea: Status: Acute (3) Abdominal pain: Status: Acute (4) Dehydration: Status: Acute (5) Sepsis: Status: Acute (6) Diabetic ketosis: Status: Acute (7) Gastroenteritis: Status: Acute (8) Elevated troponin level: Status: Acute (9) Demand ischemia of myocardium: Status: Acute (10) Type 2 diabetes mellitus: Status: Acute (11) HTN (hypertension): Status: Acute (12) CHF (congestive heart failure): Status: Acute (13) Liver transplant recipient: Status: Acute (14) Kidney transplant recipient: Status: Acute (15) Diabetic neuropathy: Status: Acute (16) Diverticulosis: Status: Acute (17) Hyperlipidemia: Status: Acute (18) GERD (gastroesophageal reflux disease): Status: Acute (19) Acute kidney injury (nontraumatic): Status: Acute (20) Chronic kidney disease (CKD): Status: Acute (21) Hyperventilation: Status: Acute (22) Compensated respiratory alkalosis: Status: Acute (23) Pain syndrome, chronic: Status: Acute (24) Chronic, continuous use of opioids: Status: Acute Plan 1. Reviewed with Dr. Jarvis in the emergency department. Efforts were made to transfer patient to a tertiary medical care facility where they have specialists to help with his multitude of underlying conditions and problems. There are no beds available across the [facility], as far away as [place], [place]. Patient will be admitted to our hospital and if we need to we will consider continuing to make efforts to transfer. May have had a acute gastroenteritis. Part of his current symptoms may be driven from his inability to take opioids as usual and patient having a mild to moderate opioid withdrawal syndrome. Worrisome is that patient is demonstrating early sepsis. Diabetic ketoacidosis can certainly present to such as well however. 2. Reviewed with patient. Expresses understanding. Answers questions. He concurs with our efforts to try to treat him here. 3. Continue to treat with IV fluids and monitor lactate levels. Will monitor orthostatic blood pressures and pulses as well. 4. Sliding scale insulin. 5. Serial troponin I's. Cardiac telemetry and periodically echocardiogram. Will also check transthoracic echocardiogram. 6. Although CT scan did not demonstrate colitis, will nonetheless check stool for clostridioides difficile toxin. 7. Clear liquids orally as tolerated. Antiemetics as needed. 8. Serial exams of the abdomen. 9. Blood cultures, urine cultures, and nasal MRSA swab ordered or will be ordered. Continue with Zosyn and vancomycin IV p.r.n. for now. 10. Physical therapy, occupational therapy, social service assistant to consult and assist. 11. Continue with supportive medication regimens, including his immunosuppressive agents and opioids. Will review this with our pharmacist. 12. Consider additional diagnostic and interventional efforts as his condition warrants.
[2021-10-22] MEDS: fentaNYL 25 MCG/HR PATCH 1 PATCH TRANSDERMA (15:52)
[2021-10-22] MEDS: OMEPRAZOLE 20 MG CAPSULE DR PO (15:57)
[2021-10-22] MEDS: LACTATED RINGERS 1000 ML 1,000 ML 125 ML IV ×2 (16:35→23:35)
[2021-10-22 17:13] LABS: Lactate* 1.4 mmol/L (0.5-1.9)
[2021-10-22 17:51] LABS: Troponin I* 0.99 ng/mL (0.01-0.04)
--- NOTE | 2021-10-22 19:52 | PC.NURSE ---
admission pt was admitted from ED. @ 1445, tele on. Sinus tachycardia. trop was increased to .99 md was notified and 1999 trop was ordered. pt has no pain and is feeling better than on admit. SL is patent left a/c and IV is infusing in the Right FA. he is drinking and voiding. he is up ab kylie. he got 1 liter of NS and 1 mg IV Dilaudid. he has been sleeping
[2021-10-22] MEDS: ATORVASTATIN 10 MG TABLET 20 MG PO (21:11)
[2021-10-22] MEDS: TACROLIMUS 0.5 MG CAPSULE 1 MG PO (21:12)
[2021-10-22] MEDS: ENOXAPARIN 30 MG/0.3ML INJ SUBCUT (21:12)
[2021-10-22] MEDS: OXYCODONE 5 MG TABLET 10 MG PO (21:12)
[2021-10-22] MEDS: GABAPENTIN 600 MG TABLET PO (21:12)
[2021-10-22 21:13] LABS: Troponin I* 0.92 ng/mL (0.01-0.04)
[2021-10-23] VITALS (12 sets, daily range): BP systolic 111–172; BP diastolic 68–90; PULSE 88–103; RESP 16–18; TEMP 36.3–37; O2SAT 92–100
--- NOTE | 2021-10-23 00:11 | PC.NURSE ---
Updated MD of trop 0.92, no new orders at this time.
[2021-10-23] MEDS: HYDROmorphone 0.5 mg/0.5 ml inj 1 MG IVP ×7 (01:04→22:40)
[2021-10-23] MEDS: PIPERACILLIN/TAZOBACTAM 3.375 GM in 0.9 % SODIUM CHLORIDE Mini-bag 100 ML IVPB ×4 (03:35→21:50)
[2021-10-23] MEDS: OMEPRAZOLE 20 MG CAPSULE DR PO (06:30)
[2021-10-23 06:57] LABS: Lactate* 0.6 mmol/L (0.5-1.9)
--- NOTE | 2021-10-23 06:57 | PC.NURSE ---
SHIFT NOTE : Pt is A&O. Afebrile. Oxygen saturations >90% on room air. HTN. Tele reads sinus tach. Pt had an episode of abdominal pain that radiated into the chest, EKG obtained and [facility] hospitalist called with update, reviewed EKG and ordered a troponin to be drawn with AM labs. PRN Dilaudid given with relief, pt has denied CP since and acknowledges an understanding to report future CP. Pt has not had a stool since admission, therefore no stool sample obtained. Up SBA to BR, incontinent x1 of a large amount of urine, linens and gown changed. Pt denies SOB and N/V.
[2021-10-23 07:14] LABS: Basophils Absolute Auto 0.01 K/uL (0.00-0.30); Basophils Percent Auto 0.2 % (0.0-3.0); Eosinophils Absolute Auto 0.02 K/uL (0.00-0.50); Eosinophils Percent Auto 0.4 % (0.0-7.0); Hematocrit 31.7 % (37.0-53.0); Hemoglobin* 10.8 gm/dL (13.5-17.5); Immature Granulocytes Abs Auto 0.01 K/uL (0.00-0.30); Mean Corpuscular HGB Conc 34 gm/dL (32-36); Mean Corpuscular Hemoglobin 33 pg (26-34); Mean Corpuscular Volume 98 fL (80-100); Monocytes Percent Auto 9.8 % (0.0-11.0); Neutrophils Percent Auto 82.4 % (42.0-72.0); Platelet Count* 125 K/uL (140-440); RDW Coefficient of Variation % 15.4 % (11.5-15.5); Red Blood Count 3.24 m/uL (4.30-5.90); White Blood Count* 5.11 K/uL (4.50-11.00)
[2021-10-23 07:26] LABS: Slide Review Reflex No
[2021-10-23 07:42] LABS: Albumin* 3.5 g/dL (3.3-5.0)
[2021-10-23 07:43] LABS: Chloride* 105 mmol/L (96-114)
[2021-10-23 07:44] LABS: Potassium* 4.6 mmol/L (3.6-5.1); Sodium* 134 mmol/L (135-149)
[2021-10-23 07:45] LABS: Alanine Aminotransferase* 8 U/L (4-50); Alkaline Phosphatase* 61 U/L (40-150); Aspartate Amino Transferase* 21 U/L (12-35); Bilirubin Direct* 0.5 mg/dL (0.0-0.5); Bilirubin Total* 2.3 mg/dL (0.1-1.5); Total Protein* 5.6 g/dL (6.0-8.3)
[2021-10-23 07:47] LABS: Blood Urea Nitrogen* 22 mg/dL (7-30); Calcium* 8.8 mg/dL (8.4-10.6); Carbon Dioxide* 26 mmol/L (20-32); Creatinine* 1.4 mg/dL (0.5-1.5); Est. Creatinine Clearance* 74.12; Estimated Glomerular Filt Rate 54.41; Glucose* 168 mg/dL (60-115)
--- NOTE | 2021-10-23 08:09 | PC.NURSE ---
Critical Value-- Notified by lab of critical troponin 0.40. Dr. Bhakta notified.
[2021-10-23] MEDS: CITALOPRAM HYDROBROMIDE 20 MG TABLET 40 MG PO (08:58)
[2021-10-23] MEDS: MAGNESIUM OXIDE 400 MG TABLET PO (08:59)
[2021-10-23] MEDS: azaTHIOprine 50 MG TABLET 150 MG PO (08:59)
[2021-10-23] MEDS: TAMSULOSIN HCL 0.4 MG CAPSULE PO (08:59)
[2021-10-23] MEDS: GABAPENTIN 600 MG TABLET PO ×2 (08:59→20:44)
[2021-10-23 10:49] LABS: Glucose, Point-of-Care* 166 mg/dl (60-115)
[2021-10-23] MEDS: LACTATED RINGERS 1000 ML 1,000 ML 125 ML IV ×2 (11:04→19:44)
--- NOTE | 2021-10-23 11:11 | CRLHL7_ITS ---
For Patients: As a result of the Century Cures Act, medical imaging exams and procedure reports are released immediately into your electronic medical record. You may view this report before your referring provider. If you have questions, please contact your health care provider. INDICATION: Liver transplant, not feeling well, pain TECHNIQUE: Color-flow and pulsed Doppler of the portal vein, hepatic veins and hepatic artery. COMPARISON: CT October 21, 2021 FINDINGS: The visualized pancreas appears normal. Antegrade flow within the splenic vein. Normal aorta without aneurysm. Transplant liver morphology appears normal. No ascites. Antegrade flow within the hepatic veins and portal veins with normal waveforms. Normal waveforms are guarding the hepatic arteries. Common bile duct measures 6.8 millimeters. Atrophy of the ambler right kidney. No hydronephrosis regarding the left kidney. Left kidney measures 13.1 cm. There is a cyst arising from the upper pole of the left kidney. The spleen measures up to 15.3 cm. The gallbladder is not present. The main portal vein velocity is 17 cm/second. IMPRESSION: Normal Doppler ultrasound evaluation of the transplanted liver. Dictated by Rubén Awda MD @ 10/23/2021 1:45:49 PM (Electronically Signed)
--- NOTE | 2021-10-23 11:17 | CRLHL7_ITS ---
For Patients: As a result of the Century Cures Act, medical imaging exams and procedure reports are released immediately into your electronic medical record. You may view this report before your referring provider. If you have questions, please contact your health care provider. CLINICAL HISTORY: Not feeling well, evaluate transplant kidney. COMPARISON: CT October 21, 2021 TECHNIQUE: [place] scale and color Doppler images were acquired of the transplant kidney in the right lower quadrant. FINDINGS: The transplanted kidney measures 7.1 x 4.3 x 6.1 cm. The cortex measures 1.5 cm. No hydronephrosis. Normal color Doppler flow to the transplanted kidney. Normal waveforms regarding the right renal artery. No elevated velocities to suggest stenosis. No solid renal mass or stone. Resistive indices measure 0.7-0.8. Normal patency of the renal vein. IMPRESSION: Normal Doppler evaluation of the transplanted kidney. Dictated by Rubén Awad MD @ 10/23/2021 1:49:26 PM (Electronically Signed)
[2021-10-23] MEDS: OXYCODONE 5 MG TABLET 10 MG PO ×2 (11:23→20:45)
--- NOTE | 2021-10-23 11:23 | REH.OT ---
Orders received for OT eval and treat. Pt unable to fully participate this am due to increased pain. MD goldstein with evaluation on 10/24/21 as able.
[2021-10-23 12:01] LABS: Lactate Dehydrogenase* 815 U/L (313-618)
[2021-10-23 12:01] LABS: Lactate Dehydrogenase* 665 U/L (313-618)
[2021-10-23 12:01] LABS: Lactate Dehydrogenase* 637 U/L (313-618)
--- NOTE | 2021-10-23 14:31 | NUTR.NU ---
RDN with MD consult. RDN visited with patient whom agreed to diet education related to hx diabetes and organ transplant. Diabetic diet education provided. Discussed basics of carbohydrate counting including sources of carbohydrates, serving sizes, and label reading. Discussed using the plate method for carbohydrate-controlled, balanced meals that include ? plate non-starchy vegetables, ? plate protein, and 3-4 servings of carbohydrates per meal (fruit, whole grains, legumes, milk, yogurt) and 1-2 per snack. Also provided organ transplant diet education. Discussed the importance of label reading and shopping tips. Reviewed foods recommended and not recommended. Handouts provided to support discussion on both diets. RDN contact information provided and encouraged patient to call with questions. RDN to follow up as needed.
--- NOTE | 2021-10-23 15:44 | PM.IMPN1 ---
Progress Note: A&P Assessment and plan (1) Nausea and vomiting: Status: Acute Assessment and Plan: By the afternoon of 10/23/2021 this is essentially resolved. (2) Diarrhea: Status: Acute Assessment and Plan: He has not had any diarrhea since admission to the hospital. (3) Abdominal pain: Status: Acute Assessment and Plan: For the most part this is resolved by the latter part of the day today. Etiology of this is not entirely clear. I am wondering if this is in part related to the diabetic ketoacidosis that he presented with. Also consider the possibility of evolving diabetic gastroparesis, gastroenteritis, gastritis, enteritis. (4) Dehydration: Status: Acute Assessment and Plan: Much improved. Continue with IV fluids for now. Will likely need to decrease IV fluid rate and stop it in the near future. (5) Sepsis: Status: Acute Assessment and Plan: It is not clear to me that he really has sepsis although he seemingly met sepsis criteria. My sense is that this is more related to his diabetic ketoacidosis, dehydration, and so forth. For now and continue with the IV antibiotics. Continue awaiting results of cultures. (6) Diabetic ketosis: Status: Acute Assessment and Plan: Much improved. Advance diet to full liquids as tolerated. Continue sliding scale insulin for now. The plan is for him to eventually get back to his usual insulin pump. Once again, he stopped this on his own a few days before coming into the hospital for assessment and help. (7) Gastroenteritis: Status: Acute Assessment and Plan: Again the nausea, vomiting, diarrhea have since stopped. Could it be that he had a gastroenteritis that has since resolved? Was part of this a constellation of withdrawal symptoms from his opioid? Was this is also related to a diabetic ketoacidosis? (8) Elevated troponin level: Status: Acute Assessment and Plan: Trending downward now. (9) Demand ischemia of myocardium: Status: Acute Assessment and Plan: It appears the had a either a non-STEMI or an episode of demand myocardial ischemia. Will continue to trend for now. (10) Type 2 diabetes mellitus: Status: Acute Assessment and Plan: Continue sliding scale insulin. Advance diet to full liquids. He will need to eventually restart his insulin pump. (11) HTN (hypertension): Status: Acute Assessment and Plan: Continue supportive measures. (12) CHF (congestive heart failure): Status: Acute Assessment and Plan: Continue supportive measures. (13) Liver transplant recipient: Status: Acute Assessment and Plan: Color flow Doppler ultrasound demonstrates normal blood flow to the transplanted liver. Continue to monitor liver function studies. The indirect hyperbilirubinemia suggests he is still dehydrated. (14) Kidney transplant recipient: Status: Acute Assessment and Plan: Color flow Doppler ultrasound demonstrates normal blood flow to the transplanted kidney. Essentially normal LDH values. (15) Diabetic neuropathy: Status: Acute Assessment and Plan: This is the main reason why he uses chronic opioids. Continue with his use of chronic opioids. (16) Diverticulosis: Status: Acute Assessment and Plan: Currently not problematic. Initially I was concerned that he may have had a diverticulitis that was not part driving his symptoms. (17) Hyperlipidemia: Status: Acute Assessment and Plan: Continue supportive efforts. (18) GERD (gastroesophageal reflux disease): Status: Acute Assessment and Plan: Will transition to p.o. PPI. (19) Acute kidney injury (nontraumatic): Status: Acute Assessment and Plan: Much improved. (20) Chronic kidney disease (CKD): Status: Acute Assessment and Plan: He has a single transplanted kidney. Continue with efforts to protect his 1 remaining kidney. (21) Hyperventilation: Status: Acute Assessment and Plan: Much improved as the day evolved. (22) Compensated respiratory alkalosis: Status: Acute Assessment and Plan: This likely was in compensation to the diabetic ketoacidosis and lactic acidosis. (23) Pain syndrome, chronic: Status: Acute Assessment and Plan: Related to his diabetic peripheral neuropathy. (24) Chronic, continuous use of opioids: Status: Acute Assessment and Plan: My suspicion is that due to his chronic use of opioids, he had insufficient opioids in his system when he was having nausea and vomiting and unable to take his usual opioids, thus in part some of his symptom complex was driven by and opioid withdrawal. Continue with his usual opioids. Plan As the day evolved his condition improved substantially. Early in the morning he was in too much pain to be assessed by Occupational therapy. By the afternoon he was doing very well was able to walk the halls of our medical-surgical nurse's station with ease. Will continue to try to transition him so that he might be able to return home sometime in the next 24-48 hours. Time Spent With Patient Total time spent: 50 minutes Subjective Time Seen by Provider: 09:00 Date Seen: 10/23/21 Interval history: Hospital day 2. When I 1st saw the patient this morning he indicated that he did not sleep well. He states he had persistent intermittent abdominal discomfort and nausea without vomiting. As the day evolved his condition improved substantially. He indicated that the analgesic and antiemetic medication helped a great deal. He tolerated being up in about the halls walking. Denied orthostasis, lightheadedness, dizziness, syncope or near syncope. Has had intermittent transient episodes of upper epigastric pain. None of these have been associated with changes in her electrocardiogram were telemetry. Analgesics and antiemetics have resolved these. Denies any dyspnea. Tolerating oral intake. Exam Narrative: Exam Narrative: Under 1st see the patient this morning he is sound asleep. I do not arouse him. He appears comfortable. I see him later in the morning and he is awake. On the 1 hand he appears comfortable and is in no acute distress. On the other hand he states he is uncomfortable. Tolerating liquid oral intake without nausea vomiting. Alert, oriented to self, place, time, situation. Appears anxious. Cooperative. Mood and affect are congruent. Able to transfer himself in and around the bed and to his chair. Lungs actually are clear to auscultation. No CVA tenderness. Heart tones with regular rhythm, normal S1-S2. Abdomen obese, active bowel sounds, subjective discomfort to palpation periumbilically. No rebound or guarding. Scars in the upper part of the abdomen are chronically healed. Extremities without edema. Capillary refill less than 3 seconds. No focal motor neurologic deficit. Transfers independently and ambulates the halls with use of walker in the afternoon. In the morning he was much more hesitant about walking too far stating that it was because of his nausea, vomiting, and abdominal discomfort. Skin is warm, dry, intact. No focal findings. No petechiae, jaundice, rashes. Const: Vital Signs, click to edit/add: Vital Signs - 24 hr 10/22/21 16:11 10/22/21 19:00 10/22/21 19:45 Temperature 97.8 F Pulse Rate 116 H 96 Pulse Rate [Pulse Oximeter] 82 Respiratory Rate 20 Blood Pressure [Ri ght Arm] 138/66 Pulse Oximetry 95 10/22/21 23:37 10/22/21 23:45 10/22/21 23:56 Temperature 97.6 F Pulse Rate 95 Pulse Rate [Pulse Oximeter] 98 98 95 Respiratory Rate 20 20 Blood Pressure [Ri ght Arm] 151/86 H Pulse Oximetry 96 10/23/21 03:25 10/23/21 07:22 10/23/21 08:46 Temperature 97.6 F 97.6 F Pulse Rate 94 Pulse Rate [Pulse Oximeter] 94 99 Respiratory Rate 18 18 Blood Pressure [Ri ght Arm] 150/76 H 146/86 H Pulse Oximetry 97 94 10/23/21 13:01 Temperature 97.3 F L Pulse Rate Pulse Rate [Pulse Oximeter] 90 Respiratory Rate 18 Blood Pressure [Ri ght Arm] 132/73 Pulse Oximetry 92 Labs Labs: Laboratory Results - last 24 hr 10/21/21 10/22/21 10/22/21 23:10 04:40 15:30 WBC RBC Hgb Hct MCV MCH MCHC RDW Coeff of [place] Plt Count Neut % (Auto) Lymph % (Auto) [place] % (Auto) Eos % (Auto) Baso % (Auto) Neut # (Auto) Lymph # (Auto) [place] # (Auto) Eos # (Auto) Baso # (Auto) Abs Immat Gran (auto) Sodium Potassium Chloride Carbon Dioxide BUN Creatinine Estimated Creat Clear Glucose Lactate Calcium Total Bilirubin Direct Bilirubin AST ALT Alkaline Phosphatase Lactate Dehydrogenase 815 H 637 H Troponin I C-Reactive Protein Total Protein Albumin POC Glucose 166 H 10/22/21 10/22/21 10/22/21 17:08 17:08 20:30 WBC RBC Hgb Hct MCV MCH MCHC RDW Coeff of [place] Plt Count Neut % (Auto) Lymph % (Auto) [place] % (Auto) Eos % (Auto) Baso % (Auto) Neut # (Auto) Lymph # (Auto) [place] # (Auto) Eos # (Auto) Baso # (Auto) Abs Immat Gran (auto) Sodium Potassium Chloride Carbon Dioxide BUN Creatinine Estimated Creat Clear Glucose Lactate 1.4 Calcium Total Bilirubin Direct Bilirubin AST ALT Alkaline Phosphatase Lactate Dehydrogenase Troponin I 0.99 H* 0.92 H* C-Reactive Protein Total Protein Albumin POC Glucose 10/23/21 10/23/21 10/23/21 06:30 06:30 06:30 WBC 5.11 RBC 3.24 L Hgb 10.8 L Hct 31.7 L MCV 98 MCH 33 MCHC 34 RDW Coeff of [place] 15.4 Plt Count 125 L Neut % (Auto) 82.4 H Lymph % (Auto) 7.0 L [place] % (Auto) 9.8 Eos % (Auto) 0.4 Baso % (Auto) 0.2 Neut # (Auto) 4.20 Lymph # (Auto) 0.40 L [place] # (Auto) 0.50 Eos # (Auto) 0.02 Baso # (Auto) 0.01 Abs Immat Gran (auto) 0.01 Sodium 134 L Potassium 4.6 Chloride 105 Carbon Dioxide 26 BUN 22 Creatinine 1.4 Estimated Creat Clear 74.12 Glucose 168 H Lactate Calcium 8.8 Total Bilirubin 2.3 H Direct Bilirubin 0.5 AST 21 ALT 8 Alkaline Phosphatase 61 Lactate Dehydrogenase 665 H Troponin I C-Reactive Protein Total Protein 5.6 L Albumin 3.5 POC Glucose 10/23/21 10/23/21 10/23/21 06:30 06:30 06:30 WBC RBC Hgb Hct MCV MCH MCHC RDW Coeff of [place] Plt Count Neut % (Auto) Lymph % (Auto) [place] % (Auto) Eos % (Auto) Baso % (Auto) Neut # (Auto) Lymph # (Auto) [place] # (Auto) Eos # (Auto) Baso # (Auto) Abs Immat Gran (auto) Sodium Potassium Chloride Carbon Dioxide BUN Creatinine Estimated Creat Clear Glucose Lactate 0.6 Calcium Total Bilirubin Direct Bilirubin AST ALT Alkaline Phosphatase Lactate Dehydrogenase Troponin I 0.40 H* C-Reactive Protein 2.0 H Total Protein Albumin POC Glucose
--- NOTE | 2021-10-23 18:52 | PC.NURSE ---
Shift Summary: Patient pleasant and cooperative. Worked with PT today and was decided patient can be independent in room. C/o abdominal pain, states oxycodone doesnt touch the pain but dilaudid does. Pain 5-10/10. Following dilaudid patient appears resting in bed. Tolerating clear fluids however c/o burning in throat when going down, tolerates cold fluid best. Fentanyl patch intact on right shoulder. Patient unable to have bowel movement during shift. Denies nausea, no vomiting noted. Tele shows sinus tachycardia.
[2021-10-23] MEDS: ATORVASTATIN 10 MG TABLET 20 MG PO (20:44)
[2021-10-23] MEDS: ONDANSETRON 2 MG/ML inj 4 MG IVP (20:45)
[2021-10-23] MEDS: ENOXAPARIN 30 MG/0.3ML INJ SUBCUT (20:45)
[2021-10-23] MEDS: TACROLIMUS 0.5 MG CAPSULE 1 MG PO (20:45)
[2021-10-23] MEDS: MAG HYDROX/ALUMINUM HYD/SIMETH 30 ML ORAL.SUSP 15 ML PO (21:08)
[2021-10-24] VITALS (9 sets, daily range): BP systolic 122–159; BP diastolic 55–84; PULSE 82–96; RESP 16–18; TEMP 36.4–36.9; O2SAT 93–99
[2021-10-24] MEDS: HYDROmorphone 0.5 mg/0.5 ml inj 1 MG IVP ×8 (02:10→21:36)
[2021-10-24] MEDS: LACTATED RINGERS 1000 ML 1,000 ML 125 ML IV ×2 (03:26→13:45)
[2021-10-24] MEDS: PIPERACILLIN/TAZOBACTAM 3.375 GM in 0.9 % SODIUM CHLORIDE Mini-bag 100 ML IVPB ×4 (03:41→21:35)
--- NOTE | 2021-10-24 04:05 | PC.NURSE ---
Pt rested well this night. Pain in the upper epigastric 6-01/25. EKG showing NSR. Pain controlled with PRN meds. Pt up SBA/IND and voiding. No BM.
[2021-10-24] MEDS: OMEPRAZOLE 20 MG CAPSULE DR PO (06:13)
[2021-10-24 08:35] LABS: HCO3 VBG 26 mmol/L (21-28); Lactate* 0.8 mmol/L (0.5-1.9); PCO2 VBG 33 mmHG (40-50); pH VBG 7.506 (7.32-7.43)
[2021-10-24 08:50] LABS: Basophils Percent Auto 0.4 % (0.0-3.0); Eosinophils Percent Auto 1.1 % (0.0-7.0); Hematocrit 29.7 % (37.0-53.0); Hemoglobin* 10.1 gm/dL (13.5-17.5); Immature Granulocytes Abs Auto 0.01 K/uL (0.00-0.30); Lymphocytes Percent Auto 14.1 % (20-44); Mean Corpuscular HGB Conc 34 gm/dL (32-36); Mean Corpuscular Hemoglobin 33 pg (26-34); Mean Corpuscular Volume 98 fL (80-100); Monocytes Percent Auto 7.6 % (0.0-11.0); Neutrophils Percent Auto 76.4 % (42.0-72.0); RDW Coefficient of Variation % 15.1 % (11.5-15.5); Red Blood Count 3.02 m/uL (4.30-5.90); White Blood Count* 2.77 K/uL (4.50-11.00)
[2021-10-24 08:52] LABS: Albumin* 3.2 g/dL (3.3-5.0); Chloride* 104 mmol/L (96-114); Sodium* 134 mmol/L (135-149)
--- NOTE | 2021-10-24 08:52 | CRLHL7_ITS ---
For Patients: As a result of the Century Cures Act, medical imaging exams and procedure reports are released immediately into your electronic medical record. You may view this report before your referring provider. If you have questions, please contact your health care provider. INDICATION: Chest pain. Liver transplant. Renal transplant. Hernia repair. TECHNIQUE: Contrast-enhanced CT of the chest. 95 cc nonionic Isovue-370 administered. FINDINGS: The contrast bolus accentuates the imaging of the thoracic and proximal abdominal aorta. There is no evidence for thoracic or proximal abdominal aortic aneurysm or dissection. No mediastinal hematoma. The study is not ideally tailored for evaluation of pulmonary emboli although there is no convincing evidence for central pulmonary emboli and the central pulmonary arteries are of normal caliber. Bibasilar pleural thickening. No focal or diffuse infiltrate. The trachea and mainstem bronchi are patent and clear. Images of the upper abdomen demonstrate postsurgical change in the right upper quadrant from a report liver transplant. Absent gallbladder. No splenomegaly. The right adrenal gland is unremarkable. Right renal parenchymal thinning with the right kidney incompletely evaluated or visualized. No left kidney identified. The included skeleton is unremarkable. IMPRESSION: 1. No acute cardiopulmonary process confidently identified. No thoracic aortic aneurysm or dissection. 2. No central pulmonary emboli. The bolus enhancement is not tailored to the pulmonary embolism protocol. 3. Coronary artery calcifications and/or coronary artery stents. 4. Postsurgical change in the upper abdomen. Please note that all CT scans at this facility use dose modulation, iterative reconstruction, and/or weight-based dosing when appropriate to reduce radiation dose to as low as reasonably achievable. Dictated by Tyron Russo MD @ 10/24/2021 10:55:40 AM (Electronically Signed)
[2021-10-24 08:53] LABS: Potassium* 4.7 mmol/L (3.6-5.1)
[2021-10-24 08:55] LABS: Creatinine* 1.3 mg/dL (0.5-1.5); Est. Creatinine Clearance* 82.23; Estimated Glomerular Filt Rate 59.47
[2021-10-24 08:56] LABS: Alanine Aminotransferase* 9 U/L (4-50); Alkaline Phosphatase* 48 U/L (40-150); Aspartate Amino Transferase* 27 U/L (12-35); Bilirubin Direct* 0.4 mg/dL (0.0-0.5); Bilirubin Total* 2.4 mg/dL (0.1-1.5); Blood Urea Nitrogen* 17 mg/dL (7-30); Calcium* 8.5 mg/dL (8.4-10.6); Carbon Dioxide* 24 mmol/L (20-32); Glucose* 160 mg/dL (60-115); Magnesium* 1.5 mg/dL (1.5-2.6); Total Protein* 5.6 g/dL (6.0-8.3)
[2021-10-24 08:58] LABS: C Reactive Protein* 4.7 mg/dL (0.5-1.0)
[2021-10-24 09:19] LABS: Platelet Count* 150 K/uL (140-440)
[2021-10-24 10:01] LABS: Troponin I* 0.13 ng/mL (0.01-0.04)
[2021-10-24] MEDS: azaTHIOprine 50 MG TABLET 150 MG PO (12:12)
[2021-10-24] MEDS: TAMSULOSIN HCL 0.4 MG CAPSULE PO (12:13)
[2021-10-24] MEDS: OXYCODONE 5 MG TABLET 10 MG PO (12:13)
[2021-10-24] MEDS: GABAPENTIN 600 MG TABLET PO ×2 (12:14→21:12)
[2021-10-24] MEDS: MAGNESIUM OXIDE 400 MG TABLET PO (12:15)
[2021-10-24] MEDS: CITALOPRAM HYDROBROMIDE 20 MG TABLET 40 MG PO (12:15)
[2021-10-24] MEDS: TACROLIMUS 0.5 MG CAPSULE 1.5 MG PO (12:20)
[2021-10-24] MEDS: GI COCKTAIL (VISC LIDO/ANTACID) 30 ML PO ×2 (12:22→18:55)
--- NOTE | 2021-10-24 13:42 | P.IMPN_ITS ---
Progress Note: A&P Assessment and plan (1) Non-STEMI (non-ST elevated myocardial infarction): Problem details: continue to provide cardiac monitoring in optimize medical management Status: Acute (2) Abdominal pain: Problem details: improved Status: Acute (3) Dysphagia: Problem details: vomiting may be the cause of his chest pain with swallowing. Continue PPI and GI cocktail Status: Acute (4) Type 2 diabetes mellitus: Status: Acute (5) Liver transplant recipient: Status: Acute (6) Kidney transplant recipient: Status: Acute (7) GERD (gastroesophageal reflux disease): Problem details: Likely exacerbated by recurrent vomiting. possibly the cause of his chest p ain associated with swallowing. Status: Acute (8) Chronic kidney disease (CKD): Problem details: stable Status: Acute (9) Pancytopenia: Problem details: stable, probably related to transplant status /medications Status: Acute (10) Gastroenteritis: Problem details: probably the cause of vomiting and diarrhea. Now resolved. Status: Acute (11) Chronic, continuous use of opioids: Problem details: May have exacerbated his vomiting and diarrhea if he was missing opioid doses and having some withdrawal Status: Acute Time Spent With Patient Total time spent: total time spent is 45 minutes, 30 minutes in discussing with patient ongoing evaluation management of vomiting , diarrhea, abdominal pain, non-STEMI and dysphagia. Subjective Date Seen: 10/24/21 Interval history: 71-year-old male seen in followup of abdominal pain, vomiting, diarrhea. Overnight his generalized abdominal pain vomiting and diarrhea have resolved. He is now however reporting lower chest pain associated with swallowing. Rep orts even with swallowing water he has pain at the lower end of his sternum. This is not constant and is not a associated with any other exertion, just swallowing. He has not had any fever. He has had a non-STEMI in his troponins have been elevated. He has not had any chest pressure or other anginal equivalents. No unusual dyspnea no orthopnea. He has not had any fever. He has had very little p.o. intake as a result of his pain with swallowing. He has no other concerns today. Exam Narrative: Exam Narrative: He is alert and appears in no distress. He gives his own history. Eyes normal. Oropharynx with moist mucous membranes. Neck is supple without mass or adenopathy. Respirations are clear to auscultation. Cardiovascular: S1, S2, regular rate and rhythm. Abdomen: Bowel sounds active. Abdomen is soft with minimal epigastric tenderness. No mass. No rash. Extremities without significant edema. Good peripheral pulses. Const: Vital Signs, click to edit/add: Vital Signs - 24 hr 10/23/21 16:00 10/23/21 16:16 10/23/21 19:52 Temperature 97.6 F 98.6 F Pulse Rate 103 H Pulse Rate [Pulse Oximeter] 89 88 Respiratory Rate 16 18 Blood Pressure [Ri ght Arm] 111/68 172/90 H Pulse Oximetry 98 100 10/23/21 19:53 10/23/21 23:06 10/23/21 23:09 Temperature 98.6 F 98.6 F Pulse Rate Pulse Rate [Pulse Oximeter] 88 88 98 Respiratory Rate 18 18 18 Blood Pressure [Ri ght Arm] 172/90 H 158/86 H Pulse Oximetry 100 97 10/23/21 23:10 10/23/21 23:11 10/24/21 03:06 Temperature 98.6 F 98.3 F Pulse Rate 99 Pulse Rate [Pulse Oximeter] 98 96 Respiratory Rate 18 18 Blood Pressure [Ri ght Arm] 158/86 H 136/81 Pulse Oximetry 97 97 10/24/21 07:00 10/24/21 07:35 10/24/21 12:30 Temperature 98.5 F 98.0 F Pulse Rate 89 Pulse Rate [Pulse Oximeter] 90 91 Respiratory Rate 18 18 Blood Pressure [Ri ght Arm] 143/70 H 137/83 Pulse Oximetry 98 98 Documenting provider has reviewed patient's vital signs: yes Labs Labs: Laboratory Results - last 24 hr 10/24/21 10/24/21 10/24/21 08:21 08:21 08:21 WBC 2.77 L RBC 3.02 L Hgb 10.1 L Hct 29.7 L MCV 98 MCH 33 MCHC 34 RDW Coeff of [place] 15.1 Plt Count 150 Neut % (Auto) 76.4 H Lymph % (Auto) 14.1 L [place] % (Auto) 7.6 Eos % (Auto) 1.1 Baso % (Auto) 0.4 Neut # (Auto) 2.10 Lymph # (Auto) 0.40 L [place] # (Auto) 0.20 Eos # (Auto) 0.00 Baso # (Auto) 0.00 Abs Immat Gran (auto) 0.01 D-Dimer Quant (PE/DVT) VBG pH 7.506 H VBG pCO2 33 L VBG pO2 134.0 H VBG HCO3 26 Sodium 134 L Potassium 4.7 Chloride 104 Carbon Dioxide 24 BUN 17 Creatinine 1.3 Estimated Creat Clear 82.23 Glucose 160 H Lactate 0.8 Calcium 8.5 Magnesium 1.5 Total Bilirubin 2.4 H Direct Bilirubin 0.4 AST 27 ALT 9 Alkaline Phosphatase 48 Troponin I 0.13 H* C-Reactive Protein 4.7 H Total Protein 5.6 L Albumin 3.2 L 10/24/21 09:00 WBC RBC Hgb Hct MCV MCH MCHC RDW Coeff of [place] Plt Count Neut % (Auto) Lymph % (Auto) [place] % (Auto) Eos % (Auto) Baso % (Auto) Neut # (Auto) Lymph # (Auto) [place] # (Auto) Eos # (Auto) Baso # (Auto) Abs Immat Gran (auto) D-Dimer Quant (PE/DVT) 0.90 H VBG pH VBG pCO2 VBG pO2 VBG HCO3 Sodium Potassium Chloride Carbon Dioxide BUN Creatinine Estimated Creat Clear Glucose Lactate Calcium Magnesium Total Bilirubin Direct Bilirubin AST ALT Alkaline Phosphatase Troponin I C-Reactive Protein Total Protein Albumin
[2021-10-24] MEDS: ASPIRIN 81 MG TAB.CHEW 162 MG PO (14:59)
[2021-10-24 15:35] LABS: CDIFFEPI 027 PRESUMPTIVE NEGATIVE (Negative)
[2021-10-24 15:59] LABS: C.Difficile POSITIVE (Negative)
[2021-10-24] MEDS: LACTATED RINGERS 1000 ML 1,000 ML 75 ML IV (16:33)
[2021-10-24] MEDS: VANCOMYCIN 125 MG CAPSULE PO ×2 (16:48→21:13)
--- NOTE | 2021-10-24 19:17 | PC.NURSE ---
End of shift-- Very pleasant and cooperative, alert and oriented patient. VSS and pt is afebrile. SPO2 maintained >90% on RA. Pt c/o pain in upper epigastric area and throat consistently today which he rated as high as 10 out of 10. Pt stated that pain is sharp and intermittent and grimacing is noted when pain increases. Md was notified and pain appears well managed with Dilaudid as well as oxycodone and a GI cocktail. LS CTA. Telemetry shows NSR. Pt denied nausea and tolerated clear liquids in the form of 1 jello and 1 chicken broth and water. He c/o increased pain with drinking. Pt had 2x partially incontinent liquid BMs today and sample was sent to lab which tested positive for c.diff. Pt also had a chest CT which was negative today and an echo. He tolerated the procedures well. BS 150s-160s today and pt was not given insulin r/t not eating. He was up to the BR with SBA and tolerated it well. Report to [facility].
[2021-10-24] MEDS: ATORVASTATIN 10 MG TABLET 20 MG PO (21:12)
[2021-10-24] MEDS: ENOXAPARIN 30 MG/0.3ML INJ SUBCUT (21:13)
[2021-10-24] MEDS: TACROLIMUS 0.5 MG CAPSULE 1 MG PO (21:14)
[2021-10-25] VITALS (10 sets, daily range): BP systolic 132–174; BP diastolic 67–95; PULSE 79–97; RESP 16–18; TEMP 36.3–36.8; O2SAT 93–100
[2021-10-25] MEDS: HYDROmorphone 0.5 mg/0.5 ml inj 1 MG IVP ×3 (02:22→08:40)
[2021-10-25] MEDS: PIPERACILLIN/TAZOBACTAM 3.375 GM in 0.9 % SODIUM CHLORIDE Mini-bag 100 ML IVPB (04:00)
[2021-10-25] MEDS: LACTATED RINGERS 1000 ML 1,000 ML 75 ML IV (05:24)
--- NOTE | 2021-10-25 05:36 | PC.NURSE ---
Pt improved from Previous night. Pain controlled with meds. Up IND and having loose Stools. Afebrile.
[2021-10-25] MEDS: OMEPRAZOLE 20 MG CAPSULE DR PO (06:05)
[2021-10-25 07:14] LABS: HCO3 VBG 27 mmol/L (21-28); PCO2 VBG 45 mmHG (40-50); PO2 VBG 44.3 mmHG (25-47); pH VBG 7.391 (7.32-7.43)
[2021-10-25 07:33] LABS: Hematocrit 26.3 % (37.0-53.0); Lymphocytes Percent Auto 16.3 % (20-44); Mean Corpuscular HGB Conc 34 gm/dL (32-36); Mean Corpuscular Hemoglobin 34 pg (26-34); Mean Corpuscular Volume 99 fL (80-100); Monocytes Percent Auto 9.6 % (0.0-11.0); Neutrophils Percent Auto 71.1 % (42.0-72.0); Platelet Count* 91 K/uL (140-440); RDW Coefficient of Variation % 14.9 % (11.5-15.5); Red Blood Count 2.67 m/uL (4.30-5.90)
[2021-10-25 07:40] LABS: Slide Review Reflex No; White Blood Count* 1.66 K/uL (4.50-11.00)
[2021-10-25 08:03] LABS: Albumin* 3.1 g/dL (3.3-5.0); Chloride* 105 mmol/L (96-114); Sodium* 134 mmol/L (135-149)
[2021-10-25 08:04] LABS: Potassium* 3.9 mmol/L (3.6-5.1)
[2021-10-25 08:06] LABS: Alkaline Phosphatase* 47 U/L (40-150); Aspartate Amino Transferase* 19 U/L (12-35); Bilirubin Total* 1.7 mg/dL (0.1-1.5); Carbon Dioxide* 26 mmol/L (20-32); Creatinine* 1.3 mg/dL (0.5-1.5); Est. Creatinine Clearance* 58.86; Estimated Glomerular Filt Rate 59.47; Total Protein* 5.2 g/dL (6.0-8.3)
[2021-10-25 08:07] LABS: Alanine Aminotransferase* 11 U/L (4-50); Blood Urea Nitrogen* 12 mg/dL (7-30); Calcium* 8.2 mg/dL (8.4-10.6); Glucose* 122 mg/dL (60-115)
[2021-10-25 08:09] LABS: C Reactive Protein* 3.8 mg/dL (0.5-1.0)
[2021-10-25 08:20] LABS: Troponin I* 0.07 ng/mL (0.01-0.04)
[2021-10-25] MEDS: GI COCKTAIL (VISC LIDO/ANTACID) 30 ML PO (08:40)
[2021-10-25] MEDS: MAGNESIUM OXIDE 400 MG TABLET PO (08:46)
[2021-10-25] MEDS: CITALOPRAM HYDROBROMIDE 20 MG TABLET 40 MG PO (08:46)
[2021-10-25] MEDS: TAMSULOSIN HCL 0.4 MG CAPSULE PO (08:46)
[2021-10-25] MEDS: GABAPENTIN 600 MG TABLET PO ×2 (08:46→20:44)
[2021-10-25] MEDS: ASPIRIN 81 MG TABLET EC PO (08:46)
[2021-10-25] MEDS: azaTHIOprine 50 MG TABLET 150 MG PO (08:47)
[2021-10-25] MEDS: VANCOMYCIN 125 MG CAPSULE PO ×4 (08:47→20:44)
[2021-10-25] MEDS: TACROLIMUS 0.5 MG CAPSULE 1.5 MG PO (08:50)
--- NOTE | 2021-10-25 09:05 | P.IMPN_ITS ---
Progress Note: A&P Assessment and plan (1) Non-STEMI (non-ST elevated myocardial infarction): Problem details: continue to provide cardiac monitoring in optimize medical management including aspirin. Troponin improving. ECG is normal. Echocardiogram from yesterday showed no wall motion abnormalities and preserved ejection fraction of 73%. He had moderate to severe aortic stenosis with moderate regurgitation and moderate to severe mitral regurgitation. Status: Acute (2) Abdominal pain: Problem details: improved Status: Acute (3) Dysphagia: Problem details: Improved today. His vomiting may be the cause of his chest pain with swallowing. Continue PPI and GI cocktail . Encourage p.o. fluids today. May need EGD or barium swallow if not continuing to improve Status: Acute (4) Type 2 diabetes mellitus: Problem details: adequate blood sugar control Status: Acute (5) Liver transplant recipient: Problem details: improved bilirubin today Status: Acute (6) Kidney transplant recipient: Problem details: stable kidney function Status: Acute (7) GERD (gastroesophageal reflux disease): Problem details: Likely exacerbated by recurrent vomiting. possibly the cause of his chest pain associated with swallowing. Status: Acute (8) Chronic kidney disease (CKD): Problem details: stable Status: Acute (9) Pancytopenia: Problem details: progressive leukopenia. Stop systemic antibiotics. Continue to monitor. Status: Acute (10) Gastroenteritis: Problem details: probably the cause of vomiting and diarrhea. Positive C diff test Status: Acute (11) Chronic, continuous use of opioids: Problem details: May have exacerbated his vomiting and diarrhea if he was missing opioid doses and having some withdrawal. Continue chronic opioids and stop IV Dilaudid. Status: Acute (12) Clostridioides difficile infection: Problem details: possibly linked to antibiotics given for toe infection. Now on vancomycin orally Status: Acute (13) Aortic stenosis: Problem details: outpatient cardiology followup Status: Acute (14) Aortic regurgitation: Problem details: outpatient cardiology followup Status: Acute (15) Mitral stenosis: Problem details: outpatient cardiology followup Status: Acute Time Spent With Patient Total time spent: total time spent today is 45 minutes, 30 minutes in coordination of care and discussing with patient and other providers management of C diff colitis, pancytopenia, transplant status, dysphagia Subjective Date Seen: 10/25/21 Interval history: 71-year-old male seen in followup of non STEMI, abdominal pain, diarrhea, vomiting, dysphagia. Patient reports feeling generally better today. He still says it is painful to swallow but he has been able to take in p.o. fluids. He i s having no chest pain except the pain he gets immediately after swallowing. Has no shortness of breath or fever. His C diff test came back positive for toxin A last night and he was started on oral vancomycin. He was treated with antibiotics a couple weeks ago when he had a toe infection and this may be the trigger for his C diff. his stools have gone from watery to loose. Echocardiogram yesterday showed preserved ejection fraction and no wall motion abnormalities. He does have moderate to severe aortic stenosis, moderate to severe mitral stenosis and moderate aortic regurgitation. This is new for him. Exam Narrative: Exam Narrative: He is alert and appears in no distress. Eyes normal. Oropharynx normal. Neck is supple without mass or adenopathy. Respirations are clear to auscultation. Cardiovascular: S1, S2, 2/6 systolic ejection murmur. No gallop or rub. Abdomen is soft with with no significant tenderness or mass. Extremities with trace edema. Good peripheral pulses. No rash Const: Vital Signs, click to edit/add: Vital Signs - 24 hr 10/24/21 12:30 10/24/21 15:31 10/24/21 16:24 Temperature 98.0 F 97.6 F Pulse Rate 86 Pulse Rate [Pulse Oximeter] 91 84 Respiratory Rate 18 16 Blood Pressure [Ri ght Arm] 137/83 122/55 L Pulse Oximetry 98 93 10/24/21 17:04 10/24/21 19:35 10/24/21 23:00 Temperature 98.1 F 98 F Pulse Rate 82 Pulse Rate [Pulse Oximeter] 84 82 82 Respiratory Rate 16 18 18 Blood Pressure [Ri ght Arm] 141/71 H 159/84 H Pulse Oximetry 99 98 10/25/21 03:00 10/25/21 07:13 10/25/21 08:14 Temperature 98 F 97.3 F L Pulse Rate 79 Pulse Rate [Pulse Oximeter] 96 92 Respiratory Rate 18 16 Blood Pressure [Ri ght Arm] 164/86 H 174/90 H Pulse Oximetry 96 98 Documenting provider has reviewed patient's vital signs: yes Labs Labs: Laboratory Results - last 24 hr 10/24/21 10/24/21 10/24/21 08:21 08:21 09:00 WBC 2.77 L RBC 3.02 L Hgb 10.1 L Hct 29.7 L MCV 98 MCH 33 MCHC 34 RDW Coeff of [place] 15.1 Plt Count 150 Neut % (Auto) 76.4 H Lymph % (Auto) 14.1 L [place] % (Auto) 7.6 Eos % (Auto) 1.1 Baso % (Auto) 0.4 Neut # (Auto) 2.10 Lymph # (Auto) 0.40 L [place] # (Auto) 0.20 Eos # (Auto) 0.00 Baso # (Auto) 0.00 Abs Immat Gran (auto) 0.01 D-Dimer Quant (PE/DVT) 0.90 H VBG pH VBG pCO2 VBG pO2 VBG HCO3 Sodium 134 L Potassium 4.7 Chloride 104 Carbon Dioxide 24 BUN 17 Creatinine 1.3 Estimated Creat Clear 82.23 Glucose 160 H Calcium 8.5 Magnesium 1.5 Total Bilirubin 2.4 H Direct Bilirubin 0.4 AST 27 ALT 9 Alkaline Phosphatase 48 Troponin I 0.13 H* C-Reactive Protein 4.7 H Total Protein 5.6 L Albumin 3.2 L Stl C.difficile Tox PCR St C. diff Tox Epid 027 10/24/21 10/25/21 10/25/21 15:53 06:55 06:55 WBC 1.66 L* RBC 2.67 L Hgb 9.0 L Hct 26.3 L MCV 99 MCH 34 MCHC 34 RDW Coeff of [place] 14.9 Plt Count 91 L Neut % (Auto) 71.1 Lymph % (Auto) 16.3 L [place] % (Auto) 9.6 Eos % (Auto) 3.0 Baso % (Auto) 0.0 Neut # (Auto) 1.20 L Lymph # (Auto) 0.30 L [place] # (Auto) 0.20 Eos # (Auto) 0.00 Baso # (Auto) 0.00 Abs Immat Gran (auto) 0.00 D-Dimer Quant (PE/DVT) VBG pH VBG pCO2 VBG pO2 VBG HCO3 Sodium 134 L Potassium 3.9 Chloride 105 Carbon Dioxide 26 BUN 12 Creatinine 1.3 Estimated Creat Clear 58.86 Glucose 122 H Calcium 8.2 L Magnesium Total Bilirubin 1.7 H Direct Bilirubin AST 19 ALT 11 Alkaline Phosphatase 47 Troponin I 0.07 H* C-Reactive Protein 3.8 H Total Protein 5.2 L Albumin 3.1 L Stl C.difficile Tox PCR POSITIVE A* St C. diff Tox Epid 027 PRESUMPTIVE NEGATIVE 10/25/21 06:55 WBC RBC Hgb Hct MCV MCH MCHC RDW Coeff of [place] Plt Count Neut % (Auto) Lymph % (Auto) [place] % (Auto) Eos % (Auto) Baso % (Auto) Neut # (Auto) Lymph # (Auto) [place] # (Auto) Eos # (Auto) Baso # (Auto) Abs Immat Gran (auto) D-Dimer Quant (PE/DVT) VBG pH 7.391 VBG pCO2 45 VBG pO2 44.3 VBG HCO3 27 Sodium Potassium Chloride Carbon Dioxide BUN Creatinine Estimated Creat Clear Glucose Calcium Magnesium Total Bilirubin Direct Bilirubin AST ALT Alkaline Phosphatase Troponin I C-Reactive Protein Total Protein Albumin Stl C.difficile Tox PCR St C. diff Tox Epid 027
[2021-10-25] MEDS: OXYCODONE 5 MG TABLET 10 MG PO (12:36)
[2021-10-25] MEDS: fentaNYL 25 MCG/HR PATCH 1 PATCH TRANSDERMA (16:25)
[2021-10-25] MEDS: ACETAMINOPHEN 325 MG TABLET 650 MG PO (19:07)
--- NOTE | 2021-10-25 20:01 | PC.NURSE ---
End of shift-- Pt was pleasant and cooperative today. VSS, though hypertensive this morning, and pt is afebrile. SPO2 maintained >94% on RA. Pt continues to have pain in epigastric region that appears to come in waves. Pain appears fairly well managed with PRN Oxycodone. He tolerated a full liquid lunch without difficulty today and was advanced to a regular diet for dinner. BS 211 at lunchtime and pt was given insulin per sliding scale. He was up to BR independently and tolerated it well. Report to BENTLEY Callaway.
[2021-10-25] MEDS: ATORVASTATIN 10 MG TABLET 20 MG PO (20:43)
[2021-10-25] MEDS: ENOXAPARIN 30 MG/0.3ML INJ SUBCUT (20:44)
[2021-10-25] MEDS: TACROLIMUS 0.5 MG CAPSULE 1 MG PO (20:48)
--- NOTE | 2021-10-25 22:55 | PC.NURSE ---
Shift [id number]- Patient ate eggs and toast this afternoon and stated it went ok. He is in bed napping on and off throughout shift. Initially this shift, he rates pain at 5-6/10, however states I don't know when asked to rate pain subsequently. He is noted to have periods of wincing/grimacing and short verbalizations. He states I'm good when asked if he is in pain, though he does admit facial expression and verbalizations are due to pain. He is offered PRN pain medications, including GI coctail, acetaminophen and oxycodone. He declines all offers for pain medication with exception to one administration of acetaminophen. RN educates patient on pain management throughout encounters. Nonetheless, he states I'm fine, and declines pain medication. He is up independently and declines stools this shift.
[2021-10-26] VITALS (7 sets, daily range): BP systolic 146–166; BP diastolic 66–84; PULSE 83–97; RESP 12–18; TEMP 36.9–37; O2SAT 98–99
--- NOTE | 2021-10-26 04:40 | PC.NURSE ---
PATIENT PLEASANT AND COOPERATIVE, UP IND TO BATHROOM, X1 BM PER PATIENT ITS MORE SOFT THAN LOOSE, RATING PAIN IN THROAT 5/10 OFFERED OXYCODONE FOR WHICH PATIENT DECLINED, I FEEL THAT PATCH IS WORKING, TOLERATING FLUIDS, TELE SHOWING NSR, DECLINED 02 BG.
[2021-10-26] MEDS: OMEPRAZOLE 20 MG CAPSULE DR PO (07:56)
[2021-10-26] MEDS: GI COCKTAIL (VISC LIDO/ANTACID) 30 ML PO (08:06)
[2021-10-26] MEDS: MAGNESIUM OXIDE 400 MG TABLET PO (09:30)
[2021-10-26] MEDS: ASPIRIN 81 MG TABLET EC PO (09:30)
[2021-10-26] MEDS: VANCOMYCIN 125 MG CAPSULE PO ×2 (09:30→13:06)
[2021-10-26] MEDS: TAMSULOSIN HCL 0.4 MG CAPSULE PO (09:30)
[2021-10-26] MEDS: CITALOPRAM HYDROBROMIDE 20 MG TABLET 40 MG PO (09:30)
[2021-10-26] MEDS: GABAPENTIN 600 MG TABLET PO (09:30)
[2021-10-26] MEDS: azaTHIOprine 50 MG TABLET 150 MG PO (09:31)
[2021-10-26] MEDS: TACROLIMUS 0.5 MG CAPSULE 1.5 MG PO (09:33)
--- NOTE | 2021-10-26 10:11 | PC.SOCIAL ---
Discharge planning: Met with pt regarding d/s plan. Pt states he lives alone and plans to return home alone at discharge. OT had recommended pt receive information on home delivered meals. Provided resource list of home delivered meals. Pt states he does not want this set up before discharge but he will take the information home in case it is needed after discharge. Pt is aware of how to contact this social services director if he has additional questions or need for resources.
[2021-10-26 10:28] LABS: Basophils Percent Auto 0.5 % (0.0-3.0); Hematocrit 29.5 % (37.0-53.0); Hemoglobin* 10.3 gm/dL (13.5-17.5); Immature Granulocytes Abs Auto 0.01 K/uL (0.00-0.30); Lymphocytes Percent Auto 23.1 % (20-44); Mean Corpuscular HGB Conc 35 gm/dL (32-36); Mean Corpuscular Hemoglobin 34 pg (26-34); Mean Corpuscular Volume 97 fL (80-100); Monocytes Percent Auto 11.6 % (0.0-11.0); Neutrophils Percent Auto 63.3 % (42.0-72.0); Platelet Count* 126 K/uL (140-440); RDW Coefficient of Variation % 14.7 % (11.5-15.5); Red Blood Count 3.05 m/uL (4.30-5.90)
[2021-10-26 10:31] LABS: Carbon Dioxide* 28 mmol/L (20-32); Chloride* 104 mmol/L (96-114); Glucose* 138 mg/dL (60-115); Potassium* 4.3 mmol/L (3.6-5.1); Sodium* 142 mmol/L (135-149)
[2021-10-26 11:10] LABS: Slide Review Reflex Yes; White Blood Count* 1.99 K/uL (4.50-11.00)
[2021-10-26 11:11] LABS: Slide Review Acceptable Review (Acceptable)
[2021-10-26 13:00] LABS: Albumin* 3.5 g/dL (3.3-5.0)
[2021-10-26 13:03] LABS: Alanine Aminotransferase* 10 U/L (4-50); Alkaline Phosphatase* 57 U/L (40-150); Aspartate Amino Transferase* 18 U/L (12-35); Bilirubin Total* 1.3 mg/dL (0.1-1.5); Blood Urea Nitrogen* 10 mg/dL (7-30); Calcium* 9.1 mg/dL (8.4-10.6); Creatinine* 1.2 mg/dL (0.5-1.5); Est. Creatinine Clearance* 63.77; Estimated Glomerular Filt Rate 65.46; Total Protein* 5.9 g/dL (6.0-8.3)
--- NOTE | 2021-10-26 14:44 | PC.NURSE ---
Addendum entered by Narda Schmitt RN 10/26/21 14:49: Patient's BS were 135 and 149, no insulin given. Original Note: End of Shift: Patient pleasant and cooperative. Patient vitally stable, lungs clear, BS WNL, IV intact. Patient is independent in room. Patient rates stomach pain at most a 6/10, GI cocktail was given for relief. Patient ate 75% of his chicken noodle soup, and tolerated it without vomiting. Patient has used the toilet x3, patient has had loose stool when he goes to urinate.
--- NOTE | 2021-10-26 15:11 | PM.DS1 ---
DS: Providers Provider Time Seen by Provider: 15:12 Date Seen: 10/26/21 Date of admission: 10/22/21 13:48 Primary care physician: Rubén Boyle MD Admitting Clinician: Chino Bhakta MD Date of Discharge: 10/26/21 DS: Diagnosis Discharge Diagnosis (1) C. difficile diarrhea: Status: Acute Problem details: improving, continue vancomycin orally (2) Pancytopenia: Status: Acute Problem details: chronic problem, got worse than better after stopping IV antibiotics (3) Dysphagia: Status: Acute Problem details: Improved today. His vomiting may be the cause of his chest pain with swallowing. Continue PPI and GI cocktail . Encourage p.o. fluids today. (4) Non-STEMI (non-ST elevated myocardial infarction): Status: Acute Problem details: suspected to be stressed induced ischemia. continue to provide cardiac monitoring in optimize medical management including aspirin. Troponin improving. ECG is normal. Echocardiogram from yesterday showed no wall motion abnormalities and preserved ejection fraction of 73%. He had moderate to severe aortic stenosis with moderate regurgitation and moderate to severe mitral regurgitation. (5) Chronic, continuous use of opioids: Status: Acute Problem details: May have exacerbated his vomiting and diarrhea if he was missing opioid doses and having some withdrawal. (6) Aortic regurgitation: Status: Acute Problem details: outpatient cardiology followup (7) Aortic stenosis: Status: Acute Problem details: outpatient cardiology followup (8) Mitral stenosis: Status: Acute Problem details: outpatient cardiology followup (9) Acute respiratory alkalosis: Status: Acute (10) Acute kidney injury (nontraumatic): Status: Acute Problem details: Improved (11) GERD (gastroesophageal reflux disease): Status: Acute Problem details: Likely exacerbated by recurrent vomiting. possibly the cause of his chest pain associated with swallowing. (12) Dehydration: Status: Acute Problem details: resolved DS: Summary Hospital Course Hospital Course: 71-year-old male admitted to the hospital with intractable vomiting and diarrhea and abdominal pain. He had associated dehydration. Initially treated as possible sepsis. He eventually he was diagnosed with C diff infection. Started on oral vancomycin for treatment. He had elevation of his troponin thought to be stress-induced ischemia. His EKG was normal but troponins were elevated and then trended down. He had and echocardiogram which showed aortic and mitral valve disease but no wall motion abnormality and he had a preserved ejection fraction. Status at Discharge Functional status at discharge: independent ambulation Overall status at discharge: patient is back to baseline Time Spent with Patient Time attestation: Total time spent providing and/or coordinating discharge services: 40 minutes Time spent: Greater than 30 minutes Exam Narrative: Exam Narrative: Patient is alert and appears in no distress. Speech is normal. He is observed to ambulate with therapy today. He moves slowly but safely. Respirations are unlabored and clear. Cardiovascular, S1, S2, regular rate and rhythm. Abdomen: Bowel sounds active. Abdomen is soft without tenderness or mass. Extremities without edema. Const: Vital Signs, click to edit/add: Vital Signs - 24 hr 10/25/21 15:15 10/25/21 16:30 10/25/21 19:07 Temperature 97.8 F 98.3 F Pulse Rate 86 Pulse Rate [Pulse Oximeter] 92 Respiratory Rate 18 Blood Pressure [Ri ght Arm] 160/67 H Pulse Oximetry 97 10/25/21 19:13 10/25/21 23:00 10/26/21 00:00 Temperature 98.3 F 97.5 F L Pulse Rate 92 Pulse Rate [Pulse Oximeter] 95 97 Respiratory Rate 18 18 Blood Pressure [Ri ght Arm] 132/95 H 150/73 H Pulse Oximetry 97 100 10/26/21 03:00 10/26/21 07:00 10/26/21 08:00 Temperature 98.5 F Pulse Rate 84 Pulse Rate [Pulse Oximeter] 83 88 Respiratory Rate 16 14 Blood Pressure [Ri ght Arm] 164/84 H Pulse Oximetry 99 10/26/21 11:00 Temperature 98.4 F Pulse Rate Pulse Rate [Pulse Oximeter] 92 Respiratory Rate 12 Blood Pressure [Ri ght Arm] 166/83 H Pulse Oximetry 98 Documenting provider has reviewed patient's vital signs: yes DS: Data Data Completed and Pending Labs on day of discharge: Labs from last 24 hours 10/26/21 10/26/21 10:18 10:18 WBC 1.99 L* RBC 3.05 L Hgb 10.3 L Hct 29.5 L MCV 97 MCH 34 MCHC 35 RDW Coeff of [place] 14.7 Plt Count 126 L Neut % (Auto) 63.3 Lymph % (Auto) 23.1 [place] % (Auto) 11.6 H Eos % (Auto) 1.0 Baso % (Auto) 0.5 Neut # (Auto) 1.30 L Lymph # (Auto) 0.50 L [place] # (Auto) 0.20 Eos # (Auto) 0.00 Baso # (Auto) 0.00 Abs Immat Gran (auto) 0.01 Diff Slide Review Acceptable Review Sodium 142 Potassium 4.3 Chloride 104 Carbon Dioxide 28 BUN 10 Creatinine 1.2 Estimated Creat Clear 63.77 Glucose 138 H Calcium 9.1 Total Bilirubin 1.3 AST 18 ALT 10 Alkaline Phosphatase 57 Total Protein 5.9 L Albumin 3.5 Preliminary micro results at discharge 10/22/21 00:10 Blood Culture - Preliminary Blood NO GROWTH AFTER 96 HOURS 10/21/21 23:10 Blood Culture - Preliminary Blood NO GROWTH AFTER 96 HOURS Discharge Plan Discharge Disposition: Home, Self-Care Date of Admission: 10/22/21 13:48 Attending Provider on Discharge: Juan Manuel Brown Primary Care Provider: Rubén Boyle Condition: Improved Anticipated Discharge Date/Time: 10/26/21 15:04 Discharge Medications: New vancomycin 125 mg Capsule 125 mg PO QID Qty: 40 0RF Continued fentanyl 25 mcg/hr patch 72 hour 1 patch topical Q72H 0RF Label Comments: 1 PATCH TD Q72H furosemide 20 mg tablet 20 mg PO DAILY PRN0RF gabapentin 600 mg tablet 600 mg PO BID 0RF oxycodone 10 mg tablet 10 mg PO TID PRN0RF Label Comments: 10 MG PO TID PRN For Severe Pain tamsulosin 0.4 mg capsule 0.4 mg PO DAILY 0RF Label Comments: TAKE ONE CAPSULE BY MOUTH EVERY DAY aspirin [Adult Aspirin Regimen] 81 mg tablet,delayed release (DR/EC) 81 mg PO DAILY 0RF atorvastatin 20 mg tablet 20 mg PO HS 0RF azathioprine 50 mg tablet 150 mg PO DAILY 0RF cholecalciferol (vitamin D3) 25 mcg (1,000 unit) capsule 1,000 unit PO DAILY 0RF citalopram [Celexa] 40 mg tablet 40 mg PO DAILY 0RF doxazosin 2 mg tablet 2 mg PO HS 0RF magnesium oxide 400 mg magnesium capsule 400 mg PO DAILY 0RF multivitamin Tablet 1 tab PO DAILY 0RF omeprazole 20 mg capsule,delayed release(DR/EC) 20 mg PO DAILY 0RF tacrolimus 0.5 mg capsule 1.5 mg PO QAM 0RF tacrolimus 0.5 mg capsule 1 mg PO HS 0RF Discharge Orders: Discharge Order (Routine); Ordered 10/26/21 Ordered By: Juan Manuel Brown Activity Level: Activity as Tolerated Discharge Diet: Diabetic Follow Up Appointments: Rubén Boyle MD [Primary Care Provider] - 11/02/21 ( follow-up in 1 week) Forms: [employer] Info Instructions
--- NOTE | 2021-10-26 19:07 | PC.NURSE ---
shift note: vss stable. BP 146/66, HR=90, temp 98.6, sats 98% RA. Patient rating lt toe pain 3/10. Pt denies nausea. IV dc'd intact Rt Wrist. LS clr. Reviewed dc instructions and copies sent with pt. Pt's home medications sent with pt at dc. Belongings reviewed and sent with pt at dc.
[2021-10-27 12:06] LABS: Slide Review Reflex No
[2021-10-27 12:46] LABS: Lipase* 28 U/L (23-300)
== END 2021-10-26 17:00 | disposition home or self-care (01) | DRG 371 ==
LOC: ED 10-22 10:47 → MEDSURG 10-22 13:50
PROVIDERS: Family Medicine; Hospitalist; Admitting Provider Internal Medicine; Emergency Provider Family Medicine; PCP Family Medicine; Visit Provider Internal Medicine
DX: A04.72 Enterocolitis due to Clostridium difficile, not specified as recurrent (principal); I21.4 Non-ST elevation (NSTEMI) myocardial infarction; Z94.4 Liver transplant status; Z94.0 Kidney transplant status; I50.32 Chronic diastolic (congestive) heart failure; I24.8 Other forms of acute ischemic heart disease; I13.0 Hypertensive heart and chronic kidney disease with heart failure and stage 1 through stage 4 chronic kidney disease, or unspecified chronic kidney disease; N17.9 Acute kidney failure, unspecified; E87.3 Alkalosis; D61.818 Other pancytopenia; F32.1 Major depressive disorder, single episode, moderate; E86.0 Dehydration; I08.0 Rheumatic disorders of both mitral and aortic valves; K21.9 Gastro-esophageal reflux disease without esophagitis; N52.9 Male erectile dysfunction, unspecified; F10.11 Alcohol abuse, in remission; E11.40 Type 2 diabetes mellitus with diabetic neuropathy, unspecified; I11.0 Hypertensive heart disease with heart failure; N18.9 Chronic kidney disease, unspecified; G89.4 Chronic pain syndrome; K57.90 Diverticulosis of intestine, part unspecified, without perforation or abscess without bleeding; F11.90 Opioid use, unspecified, uncomplicated; R13.10 Dysphagia, unspecified; Z96.643 Presence of artificial hip joint, bilateral; E78.5 Hyperlipidemia, unspecified
CPT/HCPCS: 36415; 71260; 74176; 76700; 76705; 76775; 80048; 80053; 80076; 81001; 82077; 82803; 82947; 83605; 83615; 83690; 83735; 83880; 84484; 85025; 85379; 86140; 87040; 87086; 87493; 87635; 87641; 87804; 93005; 93306; 93975; 97110; 97116; 97161; 97166; 97530; 97535; 99284; 99291; 99292; A9270; C9113; J1170; J1200; J1650; J2060; J2270; J2405; J2543; J2765; J3370; J7030; J7120; J7500; J7507; Q9967

== ENCOUNTER 2021-12-17 13:20 | Outpatient (CLI) | payer MEDICARE, BC, SELFPAY ==
--- NOTE | 2021-12-17 13:00 | CRLHL7_ITS ---
For Patients: As a result of the Century Cures Act, medical imaging exams and procedure reports are released immediately into your electronic medical record. You may view this report before your referring provider. If you have questions, please contact your health care provider. INDICATION: Right abdominal hernia. TECHNIQUE: CT abdomen and pelvis without contrast. COMPARISON: CT abdomen pelvis 10/21/2021. FINDINGS: Lower chest: Unremarkable. Mitral valve annulus calcification. Liver: Postsurgical changes of liver transplantation. Liver has stable noncontrast appearance. Multiple surgical clips around the inferior liver margin and IVC. Gallbladder and bile ducts: Gallbladder is surgically absent. No biliary ductal dilation. Pancreas: Unremarkable. No mass or inflammation. Spleen: Spleen is mildly enlarged measuring 13 cm in length. Adrenal glands: Normal in size. No nodules. Kidneys: Kidneys are atrophic with no stones or hydronephrosis. Right lower quadrant renal transplant with stable appearance no hydronephrosis or stones. Stable exophytic left renal cyst. GI tract: Colonic diverticulosis without evidence of acute diverticulitis. No small bowel dilation. No free fluid or free air. Normal appendix. Vasculature: Aortoiliac atherosclerosis. No aneurysm. Lymph nodes: No lymphadenopathy. Abdominal wall/Omentum/Peritoneum: Small fat containing umbilical hernia. No sign of mass or infiltration. No free air or significant free fluid. Pelvis: Evaluation of the pelvis is limited due to beam hardening artifact. Moderate to large left fat containing inguinal hernia similar to prior. Bones: Bilateral total hip arthroplasties with beam hardening artifact. Grade 1 anterolisthesis of L4 on L5 due to degenerative changes in the facets. IMPRESSION: 1. No evidence for acute intra-abdominal or pelvic abnormality. 2. Stable postsurgical appearance of the liver and kidney transplant. 3. Moderate to large left fat containing inguinal hernia. Small fat containing umbilical hernia. 4. Diverticulosis without evidence of acute diverticulitis. The Please note that all CT scans at this facility use dose modulation, iterative reconstruction, and/or weight-based dosing when appropriate to reduce radiation dose to as low as reasonably achievable. Dictated by Eliud Barr MD @ 12/17/2021 2:56:18 PM (Electronically Signed)
== END 2021-12-17 13:21 | disposition home or self-care (01) ==
LOC: CT 13:23
PROVIDERS: PCP Family Medicine
DX: K46.9 Unspecified abdominal hernia without obstruction or gangrene (principal); K40.90 Unilateral inguinal hernia, without obstruction or gangrene, not specified as recurrent; K57.90 Diverticulosis of intestine, part unspecified, without perforation or abscess without bleeding; Z94.4 Liver transplant status; Z94.0 Kidney transplant status
CPT/HCPCS: 74176

== ENCOUNTER 2022-02-22 13:53 | Outpatient (REF) | payer MEDICARE, BC, SELFPAY ==
[2022-02-22 15:21] LABS: SARS PCR* Negative SARS-CoV-2 (Negative)
== END 2022-02-22 13:54 | disposition home or self-care (01) ==
LOC: NPINS 13:53
PROVIDERS: PCP Family Medicine
DX: Z20.822 Contact with and (suspected) exposure to COVID-19 (principal)
CPT/HCPCS: 87635

== ENCOUNTER 2022-05-27 13:31 | Outpatient (RCR) | payer MEDICARE, BC, SELFPAY ==
[2021-11-04 14:15] LABS: Albumin* 3.8 g/dL (3.3-5.0); Chloride* 105 mmol/L (96-114)
[2021-11-04 14:16] LABS: Eosinophils Percent Auto 4.1 % (0.0-7.0); Hematocrit 32.1 % (37.0-53.0); Hemoglobin* 10.8 gm/dL (13.5-17.5); Lymphocytes Percent Auto 22.3 % (20-44); Mean Corpuscular HGB Conc 34 gm/dL (32-36); Mean Corpuscular Hemoglobin 34 pg (26-34); Mean Corpuscular Volume 101 fL (80-100); Monocytes Percent Auto 8.8 % (0.0-11.0); Neutrophils Percent Auto 63.8 % (42.0-72.0); Platelet Count* 189 K/uL (140-440); Potassium* 5.2 mmol/L (3.6-5.1); RDW Coefficient of Variation % 15.5 % (11.5-15.5); Red Blood Count 3.17 m/uL (4.30-5.90); Sodium* 138 mmol/L (135-149)
[2021-11-04 14:18] LABS: Bilirubin Direct* 0.4 mg/dL (0.0-0.5); Bilirubin Total* 1.1 mg/dL (0.1-1.5); Carbon Dioxide* 28 mmol/L (20-32); Creatinine* 1.5 mg/dL (0.5-1.5); Estimated Glomerular Filt Rate 50 ml/min; Total Protein* 6.1 g/dL (6.0-8.3)
[2021-11-04 14:19] LABS: Alanine Aminotransferase* 9 U/L (4-50); Alkaline Phosphatase* 60 U/L (40-150); Aspartate Amino Transferase* 22 U/L (12-35); Blood Urea Nitrogen* 16 mg/dL (7-30); Glucose* 132 mg/dL (60-115); Magnesium* 1.6 mg/dL (1.5-2.6)
[2021-11-04 17:42] LABS: Slide Review Reflex Yes; White Blood Count* 1.93 K/uL (4.50-11.00)
[2021-11-04 17:43] LABS: Slide Review Acceptable Review (Acceptable)
[2021-11-06 02:17] LABS: Tacrolimus by HPLC-MS/MS 4.1 ng/mL
[2022-04-22 15:26] LABS: Basophils Percent Auto 0.5 % (0.0-3.0); Hemoglobin* 11.6 gm/dL (13.5-17.5); Lymphocytes Percent Auto 19.3 % (20-44); Mean Corpuscular HGB Conc 34 gm/dL (32-36); Mean Corpuscular Hemoglobin 34 pg (26-34); Mean Corpuscular Volume 99 fL (80-100); Monocytes Percent Auto 9.9 % (0.0-11.0); Neutrophils Percent Auto 66.3 % (42.0-72.0); Platelet Count* 114 K/uL (140-440); RDW Coefficient of Variation % 13.4 % (11.5-15.5); Red Blood Count 3.45 m/uL (4.30-5.90); White Blood Count* 2.02 K/uL (4.50-11.00)
[2022-04-22 15:37] LABS: Slide Review Reflex No
[2022-04-22 15:48] LABS: Chloride* 107 mmol/L (96-114)
[2022-04-22 15:49] LABS: Albumin* 3.8 g/dL (3.3-5.0); Potassium* 5.4 mmol/L (3.6-5.1); Sodium* 139 mmol/L (135-149)
[2022-04-22 15:51] LABS: Creatinine* 1.5 mg/dL (0.5-1.5); Estimated Glomerular Filt Rate 50 ml/min
[2022-04-22 15:52] LABS: Alanine Aminotransferase* 11 U/L (4-50); Alkaline Phosphatase* 66 U/L (40-150); Aspartate Amino Transferase* 19 U/L (12-35); Bilirubin Direct* 0.1 mg/dL (0.0-0.5); Bilirubin Total* 1.2 mg/dL (0.1-1.5); Blood Urea Nitrogen* 19 mg/dL (7-30); Calcium* 9.1 mg/dL (8.4-10.6); Carbon Dioxide* 28 mmol/L (20-32); Glucose* 171 mg/dL (60-115); Magnesium* 1.6 mg/dL (1.5-2.6); Total Protein* 6.1 g/dL (6.0-8.3)
[2022-04-25 18:05] LABS: Tacrolimus by HPLC-MS/MS 4.7 ng/mL
[2022-05-17 22:12] LABS: Basophils Percent Auto 0.2 % (0.0-3.0); Eosinophils Percent Auto 1.1 % (0.0-7.0); Hematocrit 34.5 % (37.0-53.0); Hemoglobin* 12.4 gm/dL (13.5-17.5); Immature Granulocytes Pct Auto 0.2 %; Lymphocytes Percent Auto 13.4 % (20-44); Mean Corpuscular HGB Conc 36 gm/dL (32-36); Mean Corpuscular Hemoglobin 34 pg (26-34); Mean Corpuscular Volume 94 fL (80-100); Monocytes Percent Auto 8.3 % (0.0-11.0); Neutrophils Percent Auto 76.8 % (42.0-72.0); Platelet Count* 128 K/uL (140-440); RDW Coefficient of Variation % 13.3 % (11.5-15.5); Red Blood Count 3.69 m/uL (4.30-5.90); White Blood Count* 4.48 K/uL (4.50-11.00)
[2022-05-17 22:16] LABS: Slide Review Reflex No
[2022-05-17 22:27] LABS: Albumin* 4.2 g/dL (3.3-5.0)
[2022-05-17 22:28] LABS: Chloride* 99 mmol/L (96-114); Potassium* 4.8 mmol/L (3.6-5.1); Sodium* 137 mmol/L (135-149)
[2022-05-17 22:30] LABS: Bilirubin Direct* 0.2 mg/dL (0.0-0.5); Bilirubin Total* 1.8 mg/dL (0.1-1.5); Carbon Dioxide* 31 mmol/L (20-32); Creatinine* 2.5 mg/dL (0.5-1.5); Estimated Glomerular Filt Rate 27 ml/min
[2022-05-17 22:31] LABS: Alanine Aminotransferase* 11 U/L (4-50); Alkaline Phosphatase* 56 U/L (40-150); Blood Urea Nitrogen* 36 mg/dL (7-30); Glucose* 264 mg/dL (60-115); Magnesium* 1.4 mg/dL (1.5-2.6); Total Protein* 6.7 g/dL (6.0-8.3)
[2022-05-17 22:59] LABS: Aspartate Amino Transferase* 16 U/L (12-35)
[2022-05-21 21:08] LABS: Tacrolimus by HPLC-MS/MS 7.8 ng/mL
[2022-05-27 15:16] LABS: Basophils Percent Auto 0.7 % (0.0-3.0); Eosinophils Percent Auto 4.1 % (0.0-7.0); Hematocrit 34.5 % (37.0-53.0); Hemoglobin* 11.8 gm/dL (13.5-17.5); Lymphocytes Percent Auto 23.1 % (20-44); Mean Corpuscular HGB Conc 34 gm/dL (32-36); Mean Corpuscular Hemoglobin 33 pg (26-34); Mean Corpuscular Volume 97 fL (80-100); Monocytes Percent Auto 9.2 % (0.0-11.0); Neutrophils Percent Auto 61.9 % (42.0-72.0); Platelet Count* 131 K/uL (140-440); RDW Coefficient of Variation % 13.7 % (11.5-15.5); Red Blood Count 3.56 m/uL (4.30-5.90); White Blood Count* 2.95 K/uL (4.50-11.00)
[2022-05-27 15:18] LABS: Albumin* 4.1 g/dL (3.3-5.0)
[2022-05-27 15:19] LABS: Chloride* 103 mmol/L (96-114); Potassium* 4.7 mmol/L (3.6-5.1); Sodium* 141 mmol/L (135-149)
[2022-05-27 15:21] LABS: Bilirubin Direct* 0.3 mg/dL (0.0-0.5); Bilirubin Total* 1.1 mg/dL (0.1-1.5); Carbon Dioxide* 32 mmol/L (20-32); Estimated Glomerular Filt Rate 35 ml/min; Total Protein* 6.7 g/dL (6.0-8.3)
[2022-05-27 15:22] LABS: Alanine Aminotransferase* 11 U/L (4-50); Alkaline Phosphatase* 57 U/L (40-150); Aspartate Amino Transferase* 18 U/L (12-35); Blood Urea Nitrogen* 27 mg/dL (7-30); Glucose* 123 mg/dL (60-115); Magnesium* 1.6 mg/dL (1.5-2.6); Slide Review Reflex No
[2022-05-30 17:57] LABS: Tacrolimus by HPLC-MS/MS 4.8 ng/mL
[2022-07-05 22:11] LABS: Basophils Percent Auto 0.5 % (0.0-3.0); Chloride* 106 mmol/L (96-114); Eosinophils Percent Auto 5.9 % (0.0-7.0); Hemoglobin* 11.3 gm/dL (13.5-17.5); Lymphocytes Percent Auto 13.6 % (20-44); Mean Corpuscular HGB Conc 35 gm/dL (32-36); Mean Corpuscular Hemoglobin 35 pg (26-34); Mean Corpuscular Volume 99 fL (80-100); Monocytes Percent Auto 6.8 % (0.0-11.0); Neutrophils Percent Auto 73.2 % (42.0-72.0); Platelet Count* 168 K/uL (140-440); RDW Coefficient of Variation % 15.5 % (11.5-15.5); Red Blood Count 3.24 m/uL (4.30-5.90); Sodium* 134 mmol/L (135-149)
[2022-07-05 22:12] LABS: Potassium* 4.4 mmol/L (3.6-5.1)
[2022-07-05 22:14] LABS: Creatinine* 1.6 mg/dL (0.5-1.5); Estimated Glomerular Filt Rate 46 ml/min
[2022-07-05 22:15] LABS: Blood Urea Nitrogen* 12 mg/dL (7-30); Carbon Dioxide* 24 mmol/L (20-32); Glucose* 113 mg/dL (60-115); Slide Review Reflex No
[2022-07-08 07:12] LABS: Tacrolimus by HPLC-MS/MS 7.8 ng/mL
[2023-04-07 10:36] LABS: Chloride* 107 mmol/L (96-114); Potassium* 5.9 mmol/L (3.6-5.1); Sodium* 137 mmol/L (135-149)
[2023-04-07 10:39] LABS: Anion Gap 8 mEq/L (7-15); Blood Urea Nitrogen* 35 mg/dL (7-30); Carbon Dioxide* 22 mmol/L (20-32); Estimated Glomerular Filt Rate 35 ml/min; Glucose* 136 mg/dL (60-115)
[2023-04-07 10:40] LABS: Calcium* 8.4 mg/dL (8.4-10.6)
== END 2023-05-18 14:30 | disposition home or self-care (01) ==
LOC: LAB 13:31
PROVIDERS: PCP Family Medicine; Visit Provider Internal Medicine
DX: Z94.4 Liver transplant status (principal); Z94.0 Kidney transplant status; Z79.899 Other long term (current) drug therapy
CPT/HCPCS: 36415; 80048; 80076; 80197; 83735; 85025

== ENCOUNTER 2022-07-27 15:07 | Emergency (ER) | payer MEDICARE, BC, SELFPAY ==
[2022-07-27 15:14] VITALS: BP 90/56; PULSE 77; RESP 16; TEMP 36.7; O2SAT 98; BMI 29.3
--- NOTE | 2022-07-27 16:45 | CRLHL7_ITS ---
For Patients: As a result of the Century Cures Act, medical imaging exams and procedure reports are released immediately into your electronic medical record. You may view this report before your referring provider. If you have questions, please contact your health care provider. CLINICAL HISTORY: Left lower extremity pain and swelling. TECHNIQUE: [place] scale, color Doppler, and compression sonography of the left lower extremity deep venous system was performed. COMPARISON: None. FINDINGS: There is no evidence for DVT in the left lower extremity. Color flow, compressibility, and respiratory variation are seen in the left lower extremity deep venous system. There is no intraluminal echogenic material within these veins to suggest thrombus. There is a 5.8 x 0.9 x 1.5 cm fluid collection in the inferomedial left calf IMPRESSION: 1. No evidence of left lower extremity DVT. 2. 5.8 cm fluid collection in the inferomedial left calf. Dictated by Chris Dias MD @ 07/27/2022 6:00:33 PM (Electronically Signed)
--- NOTE | 2022-07-27 16:46 | ED.GENADULT ---
HPI - General Adult General Chief complaint: Lower Extremity Swelling Stated complaint: Bump on L leg Time Seen by Provider: 07/27/22 16:38 History of Present Illness HPI narrative: This 9-year-old male comes in reporting pain and some swelling in the medial aspect of his left lower extremity about a [address] up from his ankle to his knee. He does not report any injury event. He does have some chronic bilateral edema. He does not report any other symptoms. He does not have a history of blood clot and is not on anticoagulants. Related Data Home Medications Medication Instructions Recorded Confirmed aspirin 81 mg tablet,delayed 81 mg PO DAILY 10/22/21 07/05/22 release (Adult Aspirin Regimen) azathioprine 50 mg tablet 150 mg PO DAILY 10/22/21 07/05/22 multivitamin 1 tab PO DAILY 10/22/21 07/05/22 insulin aspart U-100 100 unit/mL 50 unit subcut QDAY 04/22/22 07/05/22 subcutaneous solution tacrolimus 0.5 mg capsule, 1.5 - 2 mg PO Q12H 05/17/22 07/05/22 immediate-release Previous Rx's Medication Instructions Recorded atorvastatin 20 mg tablet 20 mg PO HS #90 tabs 11/09/21 citalopram 40 mg tablet (Celexa) 40 mg PO DAILY #90 tabs 11/09/21 doxazosin 2 mg tablet 2 mg PO HS #90 tabs 11/09/21 gabapentin 600 mg tablet 600 mg PO BID #180 tabs 11/09/21 omeprazole 20 mg capsule,delayed 20 mg PO DAILY #90 caps 11/09/21 release diphenoxylate-atropine 2.5 2 tab PO TID PRN diarrhea #540 tabs 01/26/22 mg-0.025 mg tablet (Lomotil) cholecalciferol (vitamin D3) 25 2,000 unit PO DAILY #90 caps 05/07/22 mcg (1,000 unit) capsule oxycodone 10 mg tablet 10 mg PO TID PRN pain #30 tabs 07/05/22 bupropion HCl 150 mg 24 hr tablet, 150 mg PO QAM #14 tabs 07/14/22 extended release (Wellbutrin XL) bupropion HCl 300 mg 24 hr tablet, 300 mg PO QAM #30 tabs 07/14/22 extended release (Wellbutrin XL) fentanyl 25 mcg/hr transdermal 1 patch topical Q48H #15 ea 07/19/22 patch cephalexin 500 mg capsule 500 mg PO TID 10 days #30 caps 07/27/22 Allergies Allergy/AdvReac Type Severity Reaction Status Date / Time Vitamin K Allergy Intermediate Unknown Uncoded 07/05/22 12:59 Review of Systems Status of ROS: Reports: 10 or more systems reviewed and unremarkable except as noted in History and below Narrative: Constitutional: No fevers, no weight gain or loss. Eyes: No discharge. No vision changes. HENT: No congestion, no sore throat, no ear pain. Cardiovascular: No chest pain, no palpitations. Respiratory: No shortness of breath, no wheezes, no cough. Gastrointestinal: No abdominal pain, no vomiting, no diarrhea. Genitourinary: No dysuria, no hematuria. Musculoskeletal: Normal range of motion. Pain and mild swelling in the medial aspect of the left lower extremity just above the ankle. Skin: No rashes, no pruritis. Neurological: No dizziness, weakness, sensory change, speech change. Endo/Heme/Allergies: No bruising or bleeding. No polydipsia. Pysch: no suicidality, no anxiety, no insomnia. All other systems reviewed and are negative. [facility] Medical History (Updated 07/27/22 @ 18:03 by Vitor Pardo MD) BPH (benign prostatic hyperplasia) ?N40.0 - Benign prostatic hyperplasia without lower urinary tract symptoms (ICD-10) C. difficile diarrhea ?A04.72 - Enterocolitis due to Clostridium difficile, not specified as recurrent (ICD-10) CHF (congestive heart failure) ?I50.9 - Heart failure, unspecified (ICD-10) Chronic diarrhea ?K52.9 - Noninfective gastroenteritis and colitis, unspecified (ICD-10) Chronic kidney disease (CKD) ?N18.9 - Chronic kidney disease, unspecified (ICD-10) Controlled substance agreement signed (04/19/18) ?Z79.899 - Other usp (current) drug therapy (ICD-10) Current moderate episode of major depressive disorder without prior episode (01/14/17) ?F32.1 - Major depressive disorder, single episode, moderate (ICD-10) Diabetic neuropathy ?E11.40 - Type 2 diabetes mellitus with diabetic neuropathy, unspecified (ICD-10) Diverticulosis ?K57.90 - Diverticulosis of intestine, part unspecified, without perforation or abscess without bleeding (ICD-10) Erectile dysfunction ?N52.9 - Male erectile dysfunction, unspecified (ICD-10) Folic acid deficiency (01/22/16) ?E53.8 - Deficiency of other specified B group vitamins (ICD-10) GERD (gastroesophageal reflux disease) ?K21.9 - Gastro-esophageal reflux disease without esophagitis (ICD-10) History of colonic polyps (05/10/13) ?Z86.010 - Personal history of colonic polyps (ICD-10) History of ETOH abuse ?F10.11 - Alcohol abuse, in remission (ICD-10) History of non-anemic folic acid deficiency ?Z86.39 - Personal history of other endocrine, nutritional and metabolic disease (ICD-10) History of transcatheter aortic valve replacement (TAVR) ?Z95.2 - Presence of prosthetic heart valve (ICD-10) HTN (hypertension) ?I10 - Essential (primary) hypertension (ICD-10) Hyperlipidemia ?E78.5 - Hyperlipidemia, unspecified (ICD-10) Low back pain ?M54.50 - Low back pain, unspecified (ICD-10) Mitral regurgitation ?I34.0 - Nonrheumatic mitral (valve) insufficiency (ICD-10) Non-STEMI (non-ST elevated myocardial infarction) ?I21.4 - Non-ST elevation (NSTEMI) myocardial infarction (ICD-10) Pain syndrome, chronic ?G89.4 - Chronic pain syndrome (ICD-10) Pancytopenia ?D61.818 - Other pancytopenia (ICD-10) Type 2 diabetes mellitus treated with insulin ?E11.9 - Type 2 diabetes mellitus without complications (ICD-10) ?Z79.4 - senior living (current) use of insulin (ICD-10) Vitamin D deficiency ?E55.9 - Vitamin D deficiency, unspecified (ICD-10) Surgical History (Updated 04/26/22 @ 02:16 by Rubén Boyle MD) 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) ?Z96.643 - Presence of artificial hip joint, bilateral (ICD-10) History of cataract extraction (2018) ?Z98.49 - Cataract extraction status, unspecified eye (ICD-10) History of coronary artery stent placement ?Z95.5 - Presence of coronary angioplasty implant and graft (ICD-10) History of decompression of ulnar nerve (1979) ?Z98.890 - Other specified postprocedural states (ICD-10) History of hip replacement ?Z96.649 - Presence of unspecified artificial hip joint (ICD-10) History of liver transplant (07/10/16) ?Z94.4 - Liver transplant status (ICD-10) Hx of hernia repair ?Z98.890 - Other specified postprocedural states (ICD-10) ?Z87.19 - Personal history of other diseases of the digestive system (ICD-10) Kidney transplant recipient ?Z94.0 - Kidney transplant status (ICD-10) S/P TAVR (transcatheter aortic valve replacement) ?Z95.2 - Presence of prosthetic heart valve (ICD-10) Social History (Updated 04/26/22 @ 02:10 by Rubén Boyle MD) Narrative: Retired, single, nonsmoker, social ETOH Highest level of school completed/degree received: Associate degree: occupational, technical, vocational program Smoking Status: Former smoker Do you use any of these nicotine containing products: None Second hand tobacco smoke exposure: No How often do you have a drink containing alcohol: never AUDIT-C Alcohol total score: 0 Non-prescribed substance use: marijuana (any form) Non-prescribed substance use details: very little use Caffeine: Yes (1 can) Little interest or pleasure in doing things: more than half the days Feeling down, depressed, or hopeless: more than half the days service: No Exam Narrative: Exam Narrative: Constitutional: Well-developed, well-nourished, no acute distress. HEENT: Normocephalic, atraumatic. Neck: Normal range of motion. Nontender. Supple. Heart: Regular. No murmurs. Normal rate. Intact distal pulses. Lungs: Clear to auscultation. No chest discomfort. No wheezes, rhonchi, or rales. Abdomen: Normal bowel sounds. Nontender. No rebound tenderness. Genitalia: Deferred. Back: No midline tenderness. Normal range of motion. Extremities: Normal range of motion. No injury. Bilateral pedal edema with some erythema. There is increased tenderness with mild swelling in the medial aspect of left lower extremity part way up from the ankle toward the knee. There is no drainage or palpable abscess. Skin: Intact. No rash. Warm. No erythema or pallor. Neurologic: No altered sensation. No weakness. Alert and oriented. Psychiatric: No suicidality. No anxiety or depression. No insomnia. Nursing notes and vitals signs are reviewed. Const: Vital Signs, click to edit/add: Vital Signs - 24 hr 07/27/22 15:14 Temperature 98.1 F Pulse Rate [Left P ulse Oximeter] 77 Respiratory Rate 16 Blood Pressure [Le ft Upper Arm] 90/56 L Pulse Oximetry 98 Oxygen Delivery Me thod Room Air Course Vital Signs Vital signs: Initial Vital Signs Temperature 98.1 F 07/27/22 15:14 Temperature Source Temporal Artery Scan 07/27/22 15:14 Pulse Rate 77 07/27/22 15:14 Respiratory Rate 16 07/27/22 15:14 Blood Pressure 90/56 L 07/27/22 15:14 Blood Pressure Mean 67 07/27/22 15:14 Pulse Oximetry 98 07/27/22 15:14 Oxygen Delivery Method Room Air 07/27/22 15:14 Vital Signs Temperature 98.1 F 07/27/22 15:14 Pulse Rate 77 07/27/22 15:14 Respiratory Rate 16 07/27/22 15:14 Blood Pressure 90/56 L 07/27/22 15:14 Pulse Oximetry 98 07/27/22 15:14 Oxygen Delivery Method Room Air 07/27/22 15:14 Temperature 98.1 F 07/27/22 15:14 Pulse Rate 77 07/27/22 15:14 Respiratory Rate 16 07/27/22 15:14 Blood Pressure 90/56 L 07/27/22 15:14 Pulse Oximetry 98 07/27/22 15:14 Oxygen Delivery Method Room Air 07/27/22 15:14 Medical Decision Making MDM Narrative Medical decision making narrative: This patient has a swelling that is painful on the medial aspect of his left lower leg down closer to his ankle. An ultrasound of the left lower extremity is ordered and shows no sign of deep venous thrombosis. There is a small collection of fluid in this area where he has pain. It could be a small abscess. The surrounding area is appearing to be more like cellulitis. In any event he is prescribed Keflex. The presentation of this fluid collection is not 1 that is likely to benefit from drainage at this time. I stated to him that it may drain on its own or may grow to where it can be drained if he is not improving. Discharge Plan Discharge Clinical Impression: Cutaneous abscess Patient Disposition: Home, Self-Care Condition: Stable Additional Instructions: Take medication as prescribed. Follow up with MD or return if worsening. Prescriptions: New cephalexin 500 mg capsule 500 mg PO TID 10 Days Qty: 30 0RF No Action atorvastatin 20 mg tablet 20 mg PO HS Qty: 90 3RF citalopram [Celexa] 40 mg tablet 40 mg PO DAILY Qty: 90 3RF doxazosin 2 mg tablet 2 mg PO HS Qty: 90 3RF gabapentin 600 mg tablet 600 mg PO BID Qty: 180 3RF omeprazole 20 mg capsule,delayed release(DR/EC) 20 mg PO DAILY Qty: 90 3RF insulin aspart U-100 100 unit/mL solution 50 unit subcut QDAY oxycodone 10 mg tablet 10 mg PO TID PRN (Reason: pain) Qty: 30 0RF Patient Comments: 10 MG PO TID PRN For Severe Pain aspirin [Adult Aspirin Regimen] 81 mg tablet,delayed release (DR/EC) 81 mg PO DAILY azathioprine 50 mg tablet 150 mg PO DAILY multivitamin Tablet 1 tab PO DAILY tacrolimus 0.5 mg capsule 1.5 - 2 mg PO Q12H Patient Comments: takes 4 AM and 3 PM diphenoxylate-atropine [Lomotil] 2.5-0.025 mg tablet 2 tab PO TID PRN (Reason: diarrhea) Qty: 540 1RF cholecalciferol (vitamin D3) 25 mcg (1,000 unit) capsule 2,000 unit PO DAILY Qty: 90 3RF bupropion HCl [Wellbutrin XL] 150 mg tablet extended release 24 hr 150 mg PO QAM Qty: 14 0RF bupropion HCl [Wellbutrin XL] 300 mg tablet extended release 24 hr 300 mg PO QAM Qty: 30 0RF fentanyl 25 mcg/hr patch 72 hour 1 patch topical Q48H Qty: 15 0RF Follow Up/Referrals: Rubén Boyle MD [Primary Care Provider] - Stand Alone [facility] Info Inst[facility]
== END 2022-07-27 18:12 | disposition home or self-care (01) ==
PROVIDERS: Emergency Provider Emergency Medicine Emergency Medical Services; PCP Family Medicine
DX: L02.416 Cutaneous abscess of left lower limb (principal)
CPT/HCPCS: 93971; 99283; 99284

== ENCOUNTER 2022-10-26 10:42 | Inpatient (IN) | payer MEDICARE, BC, SELFPAY ==
[2022-10-26] VITALS (31 sets, daily range): BP systolic 153–196; BP diastolic 77–121; PULSE 112–123; RESP 18–26; TEMP 36.5–37.4; O2SAT 96–100; BMI 35.4; BMI 34.4
--- NOTE | 2022-10-26 | CT_ITS ---
Patient: ROLDAN LEOS Facility:?[facility] Patient ID:?[id number] Site Patient ID:?[id number] Study:?CT-Abdomen/Pelvis -10/26/2022 3:01:07 PM Ordering Physician:?DR RAGSDALE Final Report: INDICATION: Abdomen pain. TECHNIQUE: CT abdomen and pelvis without contrast. COMPARISON: None. FINDINGS: Lower chest: Small nodular infiltrates in the right middle lobe visualized on series 2, image 9. Liver: Normal in size and attenuation. No suspicious masses. Gallbladder and bile ducts: Cholecystectomy. Pancreas: Unremarkable. No mass or inflammation. Spleen: Normal in size. No masses. Adrenal glands: Normal in size. No nodules. Kidneys: Severe atrophy of the [place] kidneys. Right lower quadrant renal transplant is present. Transplanted kidney is mildly atrophic with mild nonspecific prominence of the renal collecting system. GI tract: Unremarkable. Normal in caliber. No sign of mass or inflammation. Normal appendix. Vasculature: Abdominal aorta is normal in caliber. Lymph nodes: No lymphadenopathy. Peritoneum/Abdominal Wall: Unremarkable. No sign of mass or infiltration. No free air or significant free fluid. Pelvis: Fat containing left inguinal hernia. Bones: Unremarkable for age. IMPRESSION: No acute or specific findings to explain abdominal pain. Please note that all CT scans at this facility use dose modulation, iterative reconstruction, and/or weight-based dosing when appropriate to reduce radiation dose to as low as reasonably achievable. Dictated by Reuben Byers MD @ 10/26/2022 3:35:17 PM Signed by:?Reuben Byers MD @10/26/2022 3:35:17 PM (Electronic Signature)
--- NOTE | 2022-10-26 11:09 | ED_ITS ---
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 Patient notes the onset of abdominal pain 3 days ago associated with diarrhea and vomiting. He states he has not been able to eat or drink but states he has been able to keep take his medications and keep them down. He has not had any fever or chills with this. He is very interested in what pain medication I will be giving him and states they usually give him a medication that starts with an a. I do offer morphine at this time and he states he is fairly certain that that is not the right medication but is willing to try it. He notes that his abdominal pain is everywhere. He does agree that he feels somewhat bloated. He has not had a fever. He has not noticed any blood in vomit or stool. Patient does endorse that he has been incontinent of stool. Patient notes that he has not had any falls but he feels very weak from head to toe and is worried that he would fall. He denies dysuria cold or cough symptoms or fever. He is not currently on any blood thinners but has had an aortic valve replacement and a non-STEMI in the past. He denies any chest pain or shortness of breath. CV is a patient of Dr. Boyle is a at the [facility]. He lives in [place]. He states that when this happened previously in July he was taken to [address] In spite of his request to be transferred to [place] he was transferred to [facility] in the [facility]. I do not have these notes as of the time of this dictation. Patient denies a history of C diff, recent antibiotic use or travel. Related Data Home Medications Medication Instructions Recorded Confirmed aspirin 81 mg tablet,delayed 81 mg PO DAILY 10/22/21 08/06/22 release (Adult Aspirin Regimen) azathioprine 50 mg tablet 150 mg PO DAILY 10/22/21 08/06/22 insulin aspart U-100 100 unit/mL 50 unit subcut QDAY 04/22/22 08/06/22 subcutaneous solution tacrolimus 0.5 mg capsule, 1.5 - 2 mg PO Q12H 05/17/22 08/06/22 immediate-release Previous Rx's Medication Instructions Recorded atorvastatin 20 mg tablet 20 mg PO HS #90 tabs 11/09/21 citalopram 40 mg tablet (Celexa) 40 mg PO DAILY #90 tabs 11/09/21 doxazosin 2 mg tablet 2 mg PO HS #90 tabs 11/09/21 gabapentin 600 mg tablet 600 mg PO BID #180 tabs 11/09/21 omeprazole 20 mg capsule,delayed 20 mg PO DAILY #90 caps 11/09/21 release diphenoxylate-atropine 2.5 2 tab PO TID PRN diarrhea #540 tabs 01/26/22 mg-0.025 mg tablet (Lomotil) cholecalciferol (vitamin D3) 25 2,000 unit PO DAILY #90 caps 05/07/22 mcg (1,000 unit) capsule bupropion HCl 300 mg 24 hr tablet, 300 mg PO QAM #30 tabs 07/14/22 extended release (Wellbutrin XL) multivitamin 1 tab PO DAILY #90 tabs 08/10/22 fentanyl 25 mcg/hr transdermal 1 patch topical Q48H #15 ea 09/01/22 patch oxycodone 10 mg tablet 10 mg PO TID PRN pain #30 tabs 09/14/22 Allergies Allergy/AdvReac Type Severity Reaction Status Date / Time Vitamin K Allergy Intermediate Unknown Uncoded 07/05/22 12:59 Review of Systems Status of ROS: Reports: 10 or more systems reviewed and unremarkable except as noted in History and below Const: Reports: fatigue; Denies: fever or chills Eyes: Denies: change in vision ENMT: Denies: throat pain, throat swelling, difficulty swallowing, hoarseness or mouth pain Cardio: Reports: lightheadedness; Denies: chest pain, swelling of feet/ankles or shortness of breath with exertion Resp: Denies: shortness of breath or cough GI: Reports: abdominal pain, nausea, vomiting and diarrhea; Denies: difficulty swallowing or blood in stool : Denies: painful urination or urinary frequency Musculo: Denies: back pain Neuro: Reports: weakness in extremities; Denies: headache or numbness in extremities Endo: Reports: fatigue Allergy/Immuno: Denies: throat swelling [facility] Medical History (Updated 10/26/22 @ 15:24 by Ashlyn Ch MD) Low back pain ?M54.50 - Low back pain, unspecified (ICD-10) Vitamin D deficiency ?E55.9 - Vitamin D deficiency, unspecified (ICD-10) Type 2 diabetes mellitus treated with insulin ?E11.9 - Type 2 diabetes mellitus without complications (ICD-10) ?Z79.4 - pulmonologist/intensivist (current) use of insulin (ICD-10) History of transcatheter aortic valve replacement (TAVR) ?Z95.2 - Presence of prosthetic heart valve (ICD-10) Chronic diarrhea ?K52.9 - Noninfective gastroenteritis and colitis, unspecified (ICD-10) BPH (benign prostatic hyperplasia) ?N40.0 - Benign prostatic hyperplasia without lower urinary tract symptoms (ICD-10) History of non-anemic folic acid deficiency ?Z86.39 - Personal history of other endocrine, nutritional and metabolic disease (ICD-10) History of colonic polyps (05/10/13) ?Z86.010 - Personal history of colonic polyps (ICD-10) Folic acid deficiency (01/22/16) ?E53.8 - Deficiency of other specified B group vitamins (ICD-10) Erectile dysfunction ?N52.9 - Male erectile dysfunction, unspecified (ICD-10) Current moderate episode of major depressive disorder without prior episode (01/14/17) ?F32.1 - Major depressive disorder, single episode, moderate (ICD-10) Controlled substance agreement signed (04/19/18) ?Z79.899 - Other long-term (current) drug therapy (ICD-10) C. difficile diarrhea ?A04.72 - Enterocolitis due to Clostridium difficile, not specified as recurrent (ICD-10) Pancytopenia ?D61.818 - Other pancytopenia (ICD-10) Non-STEMI (non-ST elevated myocardial infarction) ?I21.4 - Non-ST elevation (NSTEMI) myocardial infarction (ICD-10) Pain syndrome, chronic ?G89.4 - Chronic pain syndrome (ICD-10) Chronic kidney disease (CKD) ?N18.9 - Chronic kidney disease, unspecified (ICD-10) History of ETOH abuse ?F10.11 - Alcohol abuse, in remission (ICD-10) CHF (congestive heart failure) ?I50.9 - Heart failure, unspecified (ICD-10) Mitral regurgitation ?I34.0 - Nonrheumatic mitral (valve) insufficiency (ICD-10) Diabetic neuropathy ?E11.40 - Type 2 diabetes mellitus with diabetic neuropathy, unspecified (ICD-10) GERD (gastroesophageal reflux disease) ?K21.9 - Gastro-esophageal reflux disease without esophagitis (ICD-10) Hyperlipidemia ?E78.5 - Hyperlipidemia, unspecified (ICD-10) HTN (hypertension) ?I10 - Essential (primary) hypertension (ICD-10) Diverticulosis ?K57.90 - Diverticulosis of intestine, part unspecified, without perforation or abscess without bleeding (ICD-10) Surgical History (Updated 04/26/22 @ 02:16 by Rubén Boyle MD) History of coronary artery stent placement ?Z95.5 - Presence of coronary angioplasty implant and graft (ICD-10) S/P TAVR (transcatheter aortic valve replacement) ?Z95.2 - Presence of prosthetic heart valve (ICD-10) History of liver transplant (07/10/16) ?Z94.4 - Liver transplant status (ICD-10) History of decompression of ulnar nerve (1979) ?Z98.890 - Other specified postprocedural states (ICD-10) History of cataract extraction (2017) ?Z98.49 - Cataract extraction status, unspecified eye (ICD-10) 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) ?Z96.643 - Presence of artificial hip joint, bilateral (ICD-10) Kidney transplant recipient ?Z94.0 - Kidney transplant status (ICD-10) History of hip replacement ?Z96.649 - Presence of unspecified artificial hip joint (ICD-10) Hx of hernia repair ?Z98.890 - Other specified postprocedural states (ICD-10) ?Z87.19 - Personal history of other diseases of the digestive system (ICD-10) Social History (Reviewed 08/09/22 @ 11:29 by Sada Campos ~ [facility], [facility]) Narrative: Retired, single, nonsmoker, social ETOH Highest level of school completed/degree received: Associate degree: [employer] upational, technical, vocational program Smoking Status: Former smoker Do you use any of these nicotine containing products: None Second hand tobacco smoke exposure: No How often do you have a drink containing alcohol: never AUDIT-C Alcohol total score: 0 Non-prescribed substance use: marijuana (any form) Non-prescribed substance use details: very little use Caffeine: Yes (1 can) Little interest or pleasure in doing things: more than half the days Feeling down, depressed, or hopeless: more than half the days service: No Exam Narrative: Exam Narrative: Lito is alert and oriented. His lips are quite dry but he is speaking normally. He is very much fixated on pain medication that we will be giving him. Dentition is poor oral cavity with tacky mucous membranes. Head is atraumatic normocephalic. Neck is supple. No lymphadenopathy. No guarding of movement. Heart with a tachycardic rate but normal rhythm. Lungs are with distant breath sounds but I do not auscultate any crackles at this time. Abdomen is obese soft it is nontender. Large pannus. Well-healed surgical scars noted. Lower extremities with 1+ peripheral edema. Dried stool on ankles brat left greater than right. Const: Vital Signs, click to edit/add: Vital Signs - 24 hr 10/26/22 10:48 10/26/22 12:15 10/26/22 12:30 Temperature 99.3 F Pulse Rate 123 H 122 H Pulse Rate [Apical ] 120 H Respiratory Rate 26 H Blood Pressure Blood Pressure [Le ft Upper Arm] 187/112 H Pulse Oximetry 96 97 98 Oxygen Delivery Me thod Room Air 10/26/22 12:32 10/26/22 12:52 10/26/22 13:00 Temperature Pulse Rate 120 H 117 H 117 H Pulse Rate [Apical ] Respiratory Rate Blood Pressure 164/86 H Blood Pressure [Le ft Upper Arm] Pulse Oximetry 98 99 99 Oxygen Delivery Me thod 10/26/22 13:02 10/26/22 13:15 10/26/22 13:30 Temperature Pulse Rate 117 H 120 H 122 H Pulse Rate [Apical ] Respiratory Rate Blood Pressure 183/104 H Blood Pressure [Le ft Upper Arm] Pulse Oximetry 99 98 98 Oxygen Delivery Me thod 10/26/22 13:32 10/26/22 13:45 10/26/22 14:00 Temperature Pulse Rate 122 H 123 H 120 H Pulse Rate [Apical ] Respiratory Rate Blood Pressure 196/109 H Blood Pressure [Le ft Upper Arm] Pulse Oximetry 98 98 100 Oxygen Delivery Me thod 10/26/22 14:02 10/26/22 14:03 10/26/22 14:23 Temperature Pulse Rate 122 H 121 H 117 H Pulse Rate [Apical ] Respiratory Rate Blood Pressure 187/121 H Blood Pressure [Le ft Upper Arm] Pulse Oximetry 98 98 99 Oxygen Delivery Me thod 10/26/22 14:30 10/26/22 14:37 10/26/22 14:45 Temperature Pulse Rate 117 H 119 H 117 H Pulse Rate [Apical ] Respiratory Rate Blood Pressure 163/92 H Blood Pressure [Le ft Upper Arm] Pulse Oximetry 98 99 98 Oxygen Delivery Me thod 10/26/22 15:02 10/26/22 15:03 10/26/22 15:15 Temperature Pulse Rate 115 H 115 H 115 H Pulse Rate [Apical ] Respiratory Rate Blood Pressure 173/118 H Blood Pressure [Le ft Upper Arm] Pulse Oximetry 98 98 99 Oxygen Delivery Me thod 10/26/22 15:30 10/26/22 15:32 Temperature Pulse Rate 119 H 117 H Pulse Rate [Apical ] Respiratory Rate Blood Pressure 153/78 H Blood Pressure [Le ft Upper Arm] Pulse Oximetry 100 98 Oxygen Delivery Me thod Course Course Hospital Course: At this time Lito presents with weakness, vomiting and diarrhea. It appears that he has had a history of chronic diarrhea and a history of C diff according to his chart. No recent antibiotics but will do a C diff, stool culture. Recommend initiation of normal saline as he does appear to be dehydrated 1 L. Will give Zofran for nausea. Patient receptive to the use of morphine for pain control. In spite of his denial of any history of addictions he does have a his tory of alcohol use, chronic oxycodone use. Will check CBC, comprehensive panel, CRP, lactate, alcohol, urinalysis, COVID. Reevaluation(s) Reevaluation #1: Patient notes pain level of the abdomen is gone from 8/10 to 5/10. We do have him undergo non contrast CT of the abdomen given his creatinine of 2.0. Previous creatinine is Do not have C diff results back yet. Lab machines were down for extended period but have had some results with a sodium of 135, potassium 5.4 and creatinine 2.0. Magnesium is 1.4 and a CRP is normal. Vital Signs Vital signs: Initial Vital Signs Temperature 99.3 F 10/26/22 10:48 Temperature Source Temporal Artery Scan 10/26/22 10:48 Pulse Rate 120 H 10/26/22 10:48 Pulse Rhythm Regular 10/26/22 10:48 Respiratory Rate 26 H 10/26/22 10:48 Blood Pressure 187/112 H 10/26/22 10:48 Blood Pressure Mean 137 H 10/26/22 10:48 Blood Pressure Position Supine 10/26/22 10:48 Pulse Oximetry 96 10/26/22 10:48 Oxygen Delivery Method Room Air 10/26/22 10:48 Vital Signs Temperature 99.3 F 10/26/22 10:48 Pulse Rate 120 H 10/26/22 10:48 Respiratory Rate 26 H 10/26/22 10:48 Blood Pressure 187/112 H 10/26/22 10:48 Pulse Oximetry 96 10/26/22 10:48 Oxygen Delivery Method Room Air 10/26/22 10:48 Temperature 99.3 F 10/26/22 10:48 Pulse Rate 117 H 10/26/22 15:32 Respiratory Rate 26 H 10/26/22 10:48 Blood Pressure 153/78 H 10/26/22 15:32 Pulse Oximetry 98 10/26/22 15:32 Oxygen Delivery Method Room Air 10/26/22 10:48 MDM - Weakness MDM Narrative Medical decision making narrative: 1. Vomiting and diarrhea-C diff and stool culture of still pending at this time. Vomiting has resolved with Zofran [address] results pending at this time. 1.5 L normal saline given followed by 150 mL/hour. 2. Abdominal pain-CRP within normal limits and LFTs reassuring. CT pending at this time 3.Hypomagnesemia-1 g IV given 4. Elevated creatinine-2.0 today with previous value of 1.6. Potassium is 5.4. 5. History of kidney and liver transplant 6. History of type 2 diabetes with hyperglycemia 7. Disposition-admit observation under the care of Dr. Brown hospitalist. Medical Records Attestation: I reviewed the patient's medical records. Lab Data Attestation: I reviewed the patient's lab results. Labs: Lab Results 10/26/22 10/26/22 Range/Units 11:50 11:52 WBC 6.08 (4.50-11.00) K/uL RBC 4.49 (4.30-5.90) m/uL Hgb 14.6 (13.5-17.5) gm/dL Hct 41.3 (37.0-53.0) % MCV 92 (80-100) fL MCH 33 (26-34) pg MCHC 35 (32-36) gm/dL RDW Coeff of Warren 14.2 (11.5-15.5) % Plt Count 175 (140-440) K/uL Neut % (Auto) 91.1 H (42.0-72.0) % Lymph % (Auto) 3.5 L (20-44) % Hudson % (Auto) 4.9 (0.0-11.0) % Eos % (Auto) 0.0 (0.0-7.0) % Baso % (Auto) 0.2 (0.0-3.0) % Neut # (Auto) 5.50 (1.7-7.0) K/uL Lymph # (Auto) 0.20 L (0.90-2.90) K/uL Hudson # (Auto) 0.30 (0.00-0.90) K/UL Eos # (Auto) 0.00 (0.00-0.50) K/uL Baso # (Auto) 0.01 (0.00-0.30) K/uL Abs Immat Gran (auto) 0.02 (0.00-0.30) K/uL Imm/Tot Granulo (auto) 0.3 % Lactate 2.5 H (0.5-1.9) mmol/L SARS-CoV-2 (PCR) Negative SARS-CoV-2 (Negative) Lab Acknowledgement Test Added POC Troponin I 0.03 (0.01-0.04) ng/ml Imaging Data CT scan - abdomen: Attestation: I have reviewed the pertinent imaging results. Radiologist's impression: ower chest: Small nodular infiltrates in the right middle lobe visualized on series 2, image 9. Liver: Normal in size and attenuation. No suspicious masses. Gallbladder and bile ducts: Cholecystectomy. Pancreas: Unremarkable. No mass or inflammation. Spleen: Normal in size. No masses. Adrenal glands: Normal in size. No nodules. Kidneys: Severe atrophy of the [place] kidneys. Right lower quadrant renal transplant is present. Transplanted kidney is mildly atrophic with mild nonspecific prominence of the renal collecting system. GI tract: Unremarkable. Normal in caliber. No sign of mass or inflammation. Normal appendix. Vasculature: Abdominal aorta is normal in caliber. Lymph nodes: No lymphadenopathy. Peritoneum/Abdominal Wall: Unremarkable. No sign of mass or infiltration. No free air or significant free fluid. Pelvis: Fat containing left inguinal hernia. Bones: Unremarkable for age. IMPRESSION: No acute or specific findings to explain abdominal pain. ECG Data Attestation: I personally reviewed and interpreted this ECG as follows: Interpretation: EKG by my read shows sinus tachycardia at a rate of 123. No acute ST or T-wave changes are noted. Discharge Plan Discharge Clinical Impression: Abdominal pain, vomiting, and diarrhea, Weakness, Hypomagnesemia Patient Disposition: Admitted As Observation Condition: Improved
[2022-10-26] MEDS: 0.9 % SODIUM CHLORIDE 1000 ml 1,000 ML IV (11:59)
[2022-10-26] MEDS: MORPHINE 4 MG/ML INJ IVP ×2 (12:00→18:27)
[2022-10-26] MEDS: ONDANSETRON 2 MG/ML inj 4 MG IVP (12:00)
[2022-10-26 12:09] LABS: Lactate* 2.5 mmol/L (0.5-1.9)
[2022-10-26 12:13] LABS: Troponin, Point-of-Care* 0.03 ng/ml (0.01-0.04)
[2022-10-26 12:32] LABS: SARS PCR* Negative SARS-CoV-2 (Negative)
[2022-10-26 12:35] LABS: Basophils Absolute Auto 0.01 K/uL (0.00-0.30); Basophils Percent Auto 0.2 % (0.0-3.0); Hematocrit 41.3 % (37.0-53.0); Hemoglobin* 14.6 gm/dL (13.5-17.5); Immature Granulocytes Abs Auto 0.02 K/uL (0.00-0.30); Immature Granulocytes Pct Auto 0.3 %; Lymphocytes Percent Auto 3.5 % (20-44); Mean Corpuscular HGB Conc 35 gm/dL (32-36); Mean Corpuscular Hemoglobin 33 pg (26-34); Mean Corpuscular Volume 92 fL (80-100); Monocytes Percent Auto 4.9 % (0.0-11.0); Neutrophils Percent Auto 91.1 % (42.0-72.0); Platelet Count* 175 K/uL (140-440); RDW Coefficient of Variation % 14.2 % (11.5-15.5); Red Blood Count 4.49 m/uL (4.30-5.90); White Blood Count* 6.08 K/uL (4.50-11.00)
[2022-10-26 12:40] LABS: Slide Review Reflex No
--- NOTE | 2022-10-26 12:57 | ED.NURSE ---
Pt's brother Michael called for update. Pt verbal OK hand sign writer to give update.
[2022-10-26] MEDS: 0.9 % SODIUM CHLORIDE 500 ML 500 ML IV (13:50)
--- NOTE | 2022-10-26 15:22 | W.PC.EDHO ---
Primary Language: Irish Preferred Language: Orientation Status: [x] Alert & Oriented [] Slight Confusion [] Known Dx Dementia Transfers By: [x] Assist of 1 [] Assist of 2 [] Lift Active Medications Discontinued Medications Generic Name Dose Route Start Last Admin Trade Name Annalisa PRN Reason Stop Dose Admin Sodium Chloride 1,000 mls @ 1,000 mls/hr 10/26/22 11:20 10/26/22 13:07 0.9 % Sodium Chloride 1000 Ml IV 10/26/22 12:19 Infused .Q1H FABY Infusion Morphine Sulfate 4 mg 10/26/22 11:19 10/26/22 12:00 Morphine 4 Mg/Ml Inj IVP 10/26/22 11:20 4 mg ONCE ONE Administration Ondansetron HCl 4 mg 10/26/22 11:19 10/26/22 12:00 Ondansetron 2 Mg/Ml Inj IVP 10/26/22 11:20 4 mg ONCE ONE Administration Description of Symptoms ED Triage Present Problem reports that he has had abd pain and weakness for Description the last 3 days. last po was Tuesday. feels nauseated and reports vomiting. last urinated today. lives alone. called 911 - has been afraid of falling. ED Triage Date of Onset of 10/23/22 Symptoms Ramonita Coma Scale Ramonita coma scale total score 15 Pain Pain Description [Anterior Burning Abdomen] Pain Intensity [Anterior 8 Abdomen] Pain Intensity [Anterior 6 Abdomen] Pain Intensity 5 Pain Intensity 5 Pain Intensity 5 Pain Intensity 8 Pain Intensity 8 Pain Intensity 8 Pain Scale Used [Anterior Numeric (1 - 10) Abdomen] Pain Scale Used [Anterior Numeric (1 - 10) Abdomen] Pain Scale Used Numeric (1 - 10) Pain Scale Used Numeric (1 - 10) Pain Scale Used Numeric (1 - 10) Pain Scale Used Numeric (1 - 10) Pain Scale Used Numeric (1 - 10) IV Insertion/Site Date of IV Line Insertion [ 10/26/22 Right Antecubital] Oxygen Administration Pulse Oximetry 98 Pulse Oximetry 100 Pulse Oximetry 98 Pulse Oximetry 98 Pulse Oximetry 98 Pulse Oximetry 98 Pulse Oximetry 99 Pulse Oximetry 99 Pulse Oximetry 99 Pulse Oximetry 98 Pulse Oximetry 98 Pulse Oximetry 97 Pulse Oximetry 96 Oxygen Delivery Method Room Air Cardiac Monitoring EKG Method 12 Lead
[2022-10-26] MEDS: CALCIUM CARBONATE 500 MG CHEW PO (15:47)
[2022-10-26] MEDS: 0.9 % SODIUM CHLORIDE 1000 ml 1,000 ML 150 ML IV (15:58)
[2022-10-26 17:50] LABS: Blood Urea Nitrogen* 32 mg/dL (7-30); Calcium* 9.9 mg/dL (8.4-10.6); Chloride* 98 mmol/L (96-114); Creatinine* 2.1 mg/dL (0.5-1.5); Est. Creatinine Clearance* 31.67; Estimated Glomerular Filt Rate 33 ml/min; Potassium* 5.5 mmol/L (3.6-5.1); Sodium* 135 mmol/L (135-149); Total Protein* 8.7 g/dL (6.0-8.3)
[2022-10-26 17:51] LABS: Alanine Aminotransferase* 16 U/L (4-50); Alkaline Phosphatase* 73 U/L (40-150); Aspartate Amino Transferase* 30 U/L (12-35); Bilirubin Total* 2.3 mg/dL (0.1-1.5); C Reactive Protein* 0.8 mg/dL (0.5-1.0); Magnesium* 1.5 mg/dL (1.5-2.6)
[2022-10-26 17:54] LABS: Carbon Dioxide* 8 mmol/L (20-32); Glucose* 390 mg/dL (60-115)
[2022-10-26 18:31] LABS: Ethanol* < 0.01 % (0.01-0.03)
[2022-10-26] MEDS: 0.9 % SODIUM CHLORIDE 1000 ml 1,000 ML 500 ML IV (18:43)
[2022-10-26] MEDS: fentaNYL 25 MCG/HR PATCH 1 PATCH TRANSDERMA (18:44)
--- NOTE | 2022-10-26 18:45 | PM.IMHP1 ---
Hospitalist- H&P: GAYLE History of Present Illness Date Seen: 10/26/22 Chief complaint: Abdominal pain Narrative: Bari Mora is a 72 year old male admitted through the emergency department with a few days of profound weakness, abdominal pain, vomiting and diarrhea. Patient has a history of hepatic and renal transplant, chronic pain with chronic opioid therapy, diabetes mellitus, alcoholic cirrhosis, gastroesophageal reflux disease, chronic kidney disease with a baseline creatinine between 1.3 and 1.6, depression, hypertension, heart failure. Organ transplant care through the [facility]. He reports he was doing well up until the last few days when the symptoms started. He lives independently and was ambulating independently in functioning independently. Now he is too weak to manage at home. He called 911 as a result. In the emergency department he was found to be too weak to ambulate. He appeared says somewhat sedated with altered mental status. He was also found to have acute on chronic kidney injury with his creatinine of 2.1. Bilirubin was elevated at 2.3. Lactate elevated at 2.5. Potassium elevated at 5.5. He reports no cold, cough, fever, shortness of breath, chest pain. He has lost his appetite. He is eating very little. He has had vomiting but without blood. He has had many episodes of diarrhea. He is unsure if there was blood in his stool. He has a chronic problem with diarrhea for which he takes Lomotil. He tells me he has not had low modal for a long time. Diarrhea is worse in the last few days. He has generalized abdominal pain which he describes as at times sharp and at times is burning. Nothing he does seems to make it better or worse. He is on chronic opioid therapy with fentanyl patch 25 micrograms/hour changed every 48 hours and oxycodone 10 mg t.i.d. p.r.n. he tells me that he last changed his fentanyl patch about a week ago and he has not had oxycodone for almost a month. He tells me he has been taking all his other medications but when I ask him to review his medication list he is unable to confirm what medicines he is taking at what dose and when he last took them. He has an insulin pump. It is not attached he can not tell me when he last was using it. Review of Systems Narrative: Recent symptoms as noted above. Patient tells me that prior to the last few days that he had been generally at baseline with chronic neuropathic pain in his feet, chronic back and abdominal pain and chronic diarrhea all of which were reasonably well controlled. [facility] Medical History (Updated 10/26/22 @ 19:09 by Juan Manuel Brown MD) Elevated bilirubin ?R17 - Unspecified jaundice (ICD-10) Metabolic encephalopathy ?G93.41 - Metabolic encephalopathy (ICD-10) Low back pain ?M54.50 - Low back pain, unspecified (ICD-10) Vitamin D deficiency ?E55.9 - Vitamin D deficiency, unspecified (ICD-10) Type 2 diabetes mellitus treated with insulin ?E11.9 - Type 2 diabetes mellitus without complications (ICD-10) ?Z79.4 - detention (current) use of insulin (ICD-10) History of transcatheter aortic valve replacement (TAVR) ?Z95.2 - Presence of prosthetic heart valve (ICD-10) Chronic diarrhea ?K52.9 - Noninfective gastroenteritis and colitis, unspecified (ICD-10) BPH (benign prostatic hyperplasia) ?N40.0 - Benign prostatic hyperplasia without lower urinary tract symptoms (ICD-10) History of non-anemic folic acid deficiency ?Z86.39 - Personal history of other endocrine, nutritional and metabolic disease (ICD-10) History of colonic polyps (05/10/13) ?Z86.010 - Personal history of colonic polyps (ICD-10) Folic acid deficiency (01/22/16) ?E53.8 - Deficiency of other specified B group vitamins (ICD-10) Erectile dysfunction ?N52.9 - Male erectile dysfunction, unspecified (ICD-10) Current moderate episode of major depressive disorder without prior episode (01/14/17) ?F32.1 - Major depressive disorder, single episode, moderate (ICD-10) Controlled substance agreement signed (04/19/18) ?Z79.899 - Other retirement (current) drug therapy (ICD-10) C. difficile diarrhea ?A04.72 - Enterocolitis due to Clostridium difficile, not specified as recurrent (ICD-10) Pancytopenia ?D61.818 - Other pancytopenia (ICD-10) Non-STEMI (non-ST elevated myocardial infarction) ?I21.4 - Non-ST elevation (NSTEMI) myocardial infarction (ICD-10) Pain syndrome, chronic ?G89.4 - Chronic pain syndrome (ICD-10) Chronic kidney disease (CKD) ?N18.9 - Chronic kidney disease, unspecified (ICD-10) History of ETOH abuse ?F10.11 - Alcohol abuse, in remission (ICD-10) CHF (congestive heart failure) ?I50.9 - Heart failure, unspecified (ICD-10) Mitral regurgitation ?I34.0 - Nonrheumatic mitral (valve) insufficiency (ICD-10) Diabetic neuropathy ?E11.40 - Type 2 diabetes mellitus with diabetic neuropathy, unspecified (ICD-10) GERD (gastroesophageal reflux disease) ?K21.9 - Gastro-esophageal reflux disease without esophagitis (ICD-10) Hyperlipidemia ?E78.5 - Hyperlipidemia, unspecified (ICD-10) HTN (hypertension) ?I10 - Essential (primary) hypertension (ICD-10) Diverticulosis ?K57.90 - Diverticulosis of intestine, part unspecified, without perforation or abscess without bleeding (ICD-10) Surgical History History of coronary artery stent placement ?Z95.5 - Presence of coronary angioplasty implant and graft (ICD-10) S/P TAVR (transcatheter aortic valve replacement) ?Z95.2 - Presence of prosthetic heart valve (ICD-10) History of liver transplant (07/10/16) ?Z94.4 - Liver transplant status (ICD-10) History of decompression of ulnar nerve (1979) ?Z98.890 - Other specified postprocedural states (ICD-10) History of cataract extraction (2017) ?Z98.49 - Cataract extraction status, unspecified eye (ICD-10) 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) ?Z96.643 - Presence of artificial hip joint, bilateral (ICD-10) Kidney transplant recipient ?Z94.0 - Kidney transplant status (ICD-10) History of hip replacement ?Z96.649 - Presence of unspecified artificial hip joint (ICD-10) Hx of hernia repair ?Z98.890 - Other specified postprocedural states (ICD-10) ?Z87.19 - Personal history of other diseases of the digestive system (ICD-10) Family History (Updated 10/26/22 @ 18:56 by Juan Manuel Brown MD) Father Diabetes Coronary artery disease Sister Diabetes Social History (Updated 10/26/22 @ 18:58 by Juan Manuel Brown MD) Narrative: He lives in [place]. He lives by himself. He functions independently. He is retired. Remote history of smoking having quit about 20 years ago after a 10 pack year history. 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 Last drank in 2016 What is your current living situation?: I presently have a place to live Problems where you live: no known problems Problems where you live details: None per pt report In the past 12 months, utilities in danger of being shut off: no In the past 12 mos, have been you worried that your food would run out before you had money to buy more?: never true In the past 12 mos, the food you bought just didn't last and you didn't have money to buy more?: never true Highest level of school completed/degree received: some college, no degree Smoking Status: Former smoker Do you use any of these nicotine containing products: None Second hand tobacco smoke exposure: No How often do you have a drink containing alcohol: never How often do you have six or more drinks on one occasion: Never AUDIT-C Alcohol total score: 0 Non-prescribed substance use: denies use Caffeine: Yes (2 12oz bottles daily) How often does anyone, including family, friends and others, physically hurt you: never How often does anyone, including family, friends and others, insult or talk down to you: never How often does anyone, including family, friends and others, threaten you with harm: never How often does anyone, including family, friends and others, scream or curse at you: never Little interest or pleasure in doing things: more than half the days Feeling down, depressed, or hopeless: more than half the days service: No Meds Home Medications and Allergies Home Medications Medication Instructions Recorded Confirmed Type aspirin 81 mg tablet,delayed 81 mg PO DAILY 10/22/21 10/26/22 History release (Adult Aspirin Regimen) azathioprine 50 mg tablet 150 mg PO DAILY 10/22/21 10/26/22 History insulin aspart U-100 100 unit/mL 100 unit subcut DAILY 04/22/22 10/26/22 History subcutaneous solution tacrolimus 0.5 mg capsule, 1.5 - 2 mg PO Q12H 05/17/22 10/26/22 History immediate-release cholecalciferol (vitamin D3) 25 4,000 unit PO DAILY 10/26/22 10/26/22 History mcg (1,000 unit) capsule doxazosin 2 mg tablet 4 mg PO HS 10/26/22 10/26/22 History fentanyl 25 mcg/hr transdermal 1 patch topical Q72H 10/26/22 10/26/22 History patch ferrous sulfate 325 mg (65 mg 325 mg PO DAILY 10/26/22 10/26/22 History iron) tablet furosemide 40 mg tablet 40 mg PO QAM PRN 10/26/22 10/26/22 History omeprazole 20 mg capsule,delayed 40 mg PO DAILY 10/26/22 10/26/22 History release sodium bicarbonate 650 mg tablet 1,300 mg PO BID 10/26/22 10/26/22 History tamsulosin 0.4 mg capsule 0.4 mg PO DAILY 10/26/22 10/26/22 History Allergies Allergy/AdvReac Type Severity Reaction Status Date / Time Vitamin K Allergy Intermediate Unknown Uncoded 07/05/22 12:59 Exam Narrative: Exam Narrative: He appears sleepy but arouses to voice. He is able to answer questions with some difficulty. When I leave him undisturbed for even a few seconds he tends to drift off to sleep. He does not appear to be agitated or restless. He appears otherwise comfortable. Head is without obvious trauma. Eyes are normal. Pupils are normal, neither dilated nor pinpoint. They are reactive to light. Extraocular movements are full. No facial asymmetry. Oropharynx with moist mucous membranes. Oropharynx is otherwise normal. Neck is supple without mass or adenopathy. Respirations are clear to auscultation. Cardiovascular: S1, S2, regular rate and rhythm. No murmur gallop or rub. Abdomen: Bowel sounds are present. Abdomen is soft. He has mild diffuse tenderness to palpation. External genitalia normal. Upper extremities are warm to touch with good perfusion. Good peripheral pulses he moves both upper extremities well. Lower extremities with intact pulses. He has roughly symmetric strength in his lower extremities though appears weak in both legs. Trace edema. No rash. Const: Vital Signs, click to edit/add: Vital Signs - 24 hr 10/26/22 10:48 10/26/22 12:15 10/26/22 12:30 Temperature 99.3 F Pulse Rate 123 H 122 H Pulse Rate [Apical ] 120 H Pulse Rate [Pulse Oximeter] Respiratory Rate 26 H Blood Pressure Blood Pressure [Le ft Arm] Blood Pressure [Le ft Upper Arm] 187/112 H Pulse Oximetry 96 97 98 [facility] 10/26/22 12:32 10/26/22 12:52 10/26/22 13:00 Temperature Pulse Rate 120 H 117 H 117 H Pulse Rate [Apical ] Pulse Rate [Pulse Oximeter] Respiratory Rate Blood Pressure 164/86 H Blood Pressure [Le ft Arm] Blood Pressure [Le ft Upper Arm] Pulse Oximetry 98 99 99 [facility] 10/26/22 13:02 10/26/22 13:15 10/26/22 13:30 Temperature Pulse Rate 117 H 120 H 122 H Pulse Rate [Apical ] Pulse Rate [Pulse Oximeter] Respiratory Rate Blood Pressure 183/104 H Blood Pressure [Le ft Arm] Blood Pressure [Le ft Upper Arm] Pulse Oximetry 99 98 98 [facility] 10/26/22 13:32 10/26/22 13:45 10/26/22 14:00 Temperature Pulse Rate 122 H 123 H 120 H Pulse Rate [Apical ] Pulse Rate [Pulse Oximeter] Respiratory Rate Blood Pressure 196/109 H Blood Pressure [Le ft Arm] Blood Pressure [Le ft Upper Arm] Pulse Oximetry 98 98 100 [facility] 10/26/22 14:02 10/26/22 14:03 10/26/22 14:23 Temperature Pulse Rate 122 H 121 H 117 H Pulse Rate [Apical ] Pulse Rate [Pulse Oximeter] Respiratory Rate Blood Pressure 187/121 H Blood Pressure [Le ft Arm] Blood Pressure [Le ft Upper Arm] Pulse Oximetry 98 98 99 [facility] 10/26/22 14:30 10/26/22 14:37 10/26/22 14:45 Temperature Pulse Rate 117 H 119 H 117 H Pulse Rate [Apical ] Pulse Rate [Pulse Oximeter] Respiratory Rate Blood Pressure 163/92 H Blood Pressure [Le ft Arm] Blood Pressure [Le ft Upper Arm] Pulse Oximetry 98 99 98 [facility] 10/26/22 15:02 10/26/22 15:03 10/26/22 15:15 Temperature Pulse Rate 115 H 115 H 115 H Pulse Rate [Apical ] Pulse Rate [Pulse Oximeter] Respiratory Rate Blood Pressure 173/118 H Blood Pressure [Le ft Arm] Blood Pressure [Le ft Upper Arm] Pulse Oximetry 98 98 99 Oxygen Delivery Me thod 10/26/22 15:30 10/26/22 15:32 10/26/22 15:33 Temperature Pulse Rate 119 H 117 H 116 H Pulse Rate [Apical ] Pulse Rate [Pulse Oximeter] Respiratory Rate Blood Pressure 153/78 H Blood Pressure [Le ft Arm] Blood Pressure [Le ft Upper Arm] Pulse Oximetry 100 98 98 Oxygen Delivery Me thod 10/26/22 15:45 10/26/22 16:00 10/26/22 16:02 Temperature Pulse Rate 116 H 114 H 112 H Pulse Rate [Apical ] Pulse Rate [Pulse Oximeter] Respiratory Rate Blood Pressure 164/77 H Blood Pressure [Le ft Arm] Blood Pressure [Le ft Upper Arm] Pulse Oximetry 98 96 96 Oxygen Delivery Me thod 10/26/22 16:46 Temperature 97.7 F Pulse Rate Pulse Rate [Apical ] Pulse Rate [Pulse Oximeter] 115 H Respiratory Rate 22 Blood Pressure Blood Pressure [Le ft Arm] 187/95 H Blood Pressure [Le ft Upper Arm] Pulse Oximetry 97 Oxygen Delivery Me thod Room Air Documenting provider has reviewed patient's vital signs: yes Hospitalist - H&P: Result Labs Labs: Short CBC 10/26/22 Range/Units 11:50 WBC 6.08 (4.50-11.00) K/uL Hgb 14.6 (13.5-17.5) gm/dL Hct 41.3 (37.0-53.0) % Plt Count 175 (140-440) K/uL BMP 10/26/22 11:50 Sodium 135 Potassium 5.5 H Chloride 98 Carbon Dioxide 8 L* BUN 32 H Creatinine 2.1 H Glucose 390 H* Calcium 9.9 Liver Function 10/26/22 Range/Units 11:50 Total Bilirubin 2.3 H (0.1-1.5) mg/dL AST 30 (12-35) U/L ALT 16 (4-50) U/L Alkaline Phosphatase 73 (40-150) U/L Albumin 5.0 (3.3-5.0) g/dL Imaging CT scan - abdomen: Attestation: I have reviewed the pertinent imaging results. (No acute findings. Status post kidney transplant and status post cholecystectomy.) Assessment and Plan Assessment and plan (1) Metabolic encephalopathy: Problem comment: This is part of the constellation of constitutional symptoms patient is experiencing at this time. This is possibly primary problem. Considerations include opioid withdrawal, other substance abuse, complications of other acute illness. Status: Acute (2) Opioid withdrawal: Problem comment: Patient has been on fentanyl patch, 25 mcg. He last changed his patch about a week ago by his report. He tells me he has had no oxycodone for about a month. Now with worsening abdominal pain, vomiting and diarrhea possibly due in part to opioid withdrawal Status: Acute (3) Weakness: Problem comment: Profound weakness to the point he is no longer able to care for himself. Last to see if this reverses itself when he is resuscitated and treated here Status: Acute (4) ROSANA (acute kidney injury): Problem comment: Per transplant team his baseline creatinine is 1.3-1.6. Now 2.1. Fluid resuscitation and follow. Make sure he gets his transplant medications. May need to contact transplant team if not rapidly improving. 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 Continue anti rejection drugs and consult hepatic transplant team if not rapidly improving Status: Acute (6) Metabolic acidosis: Problem comment: Likely due to combination of factors including acute on chronic kidney injury, dehydration, diarrhea and vomiting, not eating and drinking. Address underlying abnormalities and continue bicarb and fluids. Status: Acute (7) Hyperkalemia: Status: Acute (8) Hypomagnesemia: Status: Acute (9) Abdominal pain, vomiting, and diarrhea: Problem comment: I suspect this is due primarily to opioid withdrawal. Was on fentanyl patch and stopped it about a week ago. Symptoms began 3 or 4 days ago. Status: Acute (10) Liver transplant recipient: Status: Acute (11) Kidney transplant recipient: Status: Acute (12) Type 2 diabetes mellitus treated with insulin: Problem comment: Blood sugar 390 on admission. He has been off his pump for an unknown length of time. Initiate basal bolus insulin and sliding scale. Status: Acute Plan Patient is admitted to the hospital for evaluation management of metabolic encephalopathy with acute confusion, acute kidney injury in the context of renal transplant, elevated bilirubin in the context of hepatic transplant, abdominal pain vomiting and diarrhea which have been intractable, multiple metabolic abnormalities. Initial plan will be fluid resuscitation, correction of metabolic abnormalities, reverse opioid withdrawal by resuming home opioid medications, and functional assessment to determine whether he will be may able to manage to return to independent living. Total time spent today is 120 minutes, 100 minutes in coordination of care, reviewing records and discussing with other providers ongoing evaluation management of these issues
[2022-10-26] MEDS: 5 % DEXTROSE/0.9% SOD CHLORIDE 1,000 ML 125 ML IV (19:42)
[2022-10-26 20:21] LABS: Phosphorus* 3.7 mg/dL (2.5-4.5)
[2022-10-26 20:50] LABS: Appearance Urine Clear (Clear); Bilirubin Urine 1+ (Negative); Blood Urine Trace-intact (Negative); Color Urine Yellow (Yellow); Glucose Urine 2+ (Negative); Ketones Urine 4+ (Negative); Leukocyte Esterase Urine Negative (Negative); Nitrite Urine Negative (Negative); Protein Urine 1+ (Negative); Specific Gravity Urine 1.025 (1.000-1.030); Urobilinogen Urine 0.2 (0.2-1.0)
[2022-10-26 20:57] LABS: Amphetamine Screen Urine Negative (Negative); Barbiturate Screen Urine Negative (Negative); Benzodiazepines Screen Urine Negative (Negative); Cocaine Screen Urine Negative (Negative); Methadone Screen Urine Negative (Negative); Methamphetamines Screen Urine Negative (Negative); Oxycodone Screen Urine Negative (Negative); Phencyclidine Screen Urine Negative (Negative); Tricyclic Antidepressant Urine Negative (Negative)
[2022-10-26 20:58] LABS: Hematocrit 39.8 % (37.0-53.0); Hemoglobin* 13.7 gm/dL (13.5-17.5); Immature Granulocytes Abs Auto 0.03 K/uL (0.00-0.30); Immature Granulocytes Pct Auto 0.5 %; Lymphocytes Percent Auto 5.6 % (20-44); Mean Corpuscular HGB Conc 34 gm/dL (32-36); Mean Corpuscular Hemoglobin 32 pg (26-34); Mean Corpuscular Volume 94 fL (80-100); Monocytes Percent Auto 8.1 % (0.0-11.0); Neutrophils Percent Auto 85.8 % (42.0-72.0); Platelet Count* 170 K/uL (140-440); RDW Coefficient of Variation % 14.5 % (11.5-15.5); Red Blood Count 4.23 m/uL (4.30-5.90); White Blood Count* 5.71 K/uL (4.50-11.00)
[2022-10-26 20:59] LABS: RBC Urine 0-2 (0-2); WBC Urine 0-2 (0-5)
--- NOTE | 2022-10-26 20:59 | CRLHL7_ITS ---
For Patients: As a result of the Century Cures Act, medical imaging exams and procedure reports are released immediately into your electronic medical record. You may view this report before your referring provider. If you have questions, please contact your health care provider. INDICATION: Altered mental status. TECHNIQUE: Head CT without contrast. COMPARISON: None. FINDINGS: Periventricular areas of low attenuation, likely due to chronic small vessel ischemic changes. Generalized volume loss. Atherosclerosis. Old right basal ganglia lacunar infarcts. No intracranial hemorrhage. No discrete mass or mass effect. There is no midline shift. The basilar cisterns are patent. No hydrocephalus. The martínez-white matter interface is otherwise preserved. No acute osseous abnormality. No extracalvarial soft tissue abnormality. The mastoid air cells are clear. The paranasal sinuses are well-aerated. The visualized portions of the orbits and globes are unremarkable. IMPRESSION: No acute intracranial process per unenhanced head CT. Please note that all CT scans at this facility use dose modulation, iterative reconstruction, and/or weight-based dosing when appropriate to reduce radiation dose to as low as reasonably achievable. Dictated by Rubén Del Angel MD @ 10/26/2022 10:34:59 PM (Electronically Signed)
[2022-10-26 21:00] LABS: Slide Review Reflex No
[2022-10-26 21:00] LABS: Cannabinoid Screen Urine POSITIVE (Negative); Opiate Screen Urine POSITIVE (Negative)
[2022-10-26] MEDS: PANTOPRAZOLE SODIUM 40 MG INJ IVP (21:14)
[2022-10-26] MEDS: CITALOPRAM HYDROBROMIDE 20 MG TABLET PO (21:15)
--- NOTE | 2022-10-26 21:19 | PC.NURSE ---
Lab called to see if results were ready as they have been pending-recent lab draw done but did not do lactate. Will come back to draw pot again-MD aware.
[2022-10-26 21:25] LABS: Chloride* 103 mmol/L (96-114)
[2022-10-26 21:26] LABS: Potassium* 5.2 mmol/L (3.6-5.1); Sodium* 137 mmol/L (135-149)
[2022-10-26 21:28] LABS: Creatinine* 1.8 mg/dL (0.5-1.5); Est. Creatinine Clearance* 36.94; Estimated Glomerular Filt Rate 40 ml/min
[2022-10-26 21:29] LABS: Blood Urea Nitrogen* 32 mg/dL (7-30); Calcium* 9.1 mg/dL (8.4-10.6); Carbon Dioxide* 14 mmol/L (20-32); Glucose* 321 mg/dL (60-115); Lipase* 42 U/L (23-300)
[2022-10-26] MEDS: TACROLIMUS 0.5 MG CAPSULE PO (21:30)
[2022-10-26 21:32] LABS: C Reactive Protein* 0.6 mg/dL (0.5-1.0)
[2022-10-26] MEDS: GABAPENTIN 600 MG TABLET 300 MG PO (21:36)
[2022-10-26 21:42] LABS: NT Pro B Type NatriureticPept* 5280 pg/mL
[2022-10-26] MEDS: ATORVASTATIN 10 MG TABLET 20 MG PO (22:02)
[2022-10-26] MEDS: SODIUM BICARBONATE 650 MG TABLET 1300 MG PO (22:02)
[2022-10-26] MEDS: DOXAZOSIN 4 MG TABLET PO (22:03)
--- NOTE | 2022-10-26 23:41 | PC.NURSE ---
Shift Note [id number]: Pt alert, and oriented x3 but with delayed responses, occasional glazed over look, and questionable accuracy with responses related to admission and daily living. BP's hypertensive and HR tachy, 120BPM. Tele= sinus tach, EKG per MD. Pt c/o abdominal pain 4/10 that is constant. Morphine given IVP, OxyContin PO, and 25mcg Fentanyl patch placed on left shoulder. Personal 25mcg Fentanyl patch from home was removed and destroyed with BENTLEY Glez. Pt able to stand at bedside with assist x2 to use urinal, 400cc and sample sent to lab. Post void bladder scan= 357cc. Pt had wave of nausea after standing and 100cc black emesis the consistency of water. Gastroccult positive and MD updated. Pt sent for head CT, results pending.
[2022-10-27] VITALS (8 sets, daily range): BP systolic 142–186; BP diastolic 75–94; PULSE 106–114; RESP 18; TEMP 35.8–36.7; O2SAT 95–98
[2022-10-27] MEDS: 5 % DEXTROSE/0.9% SOD CHLORIDE 1,000 ML 125 ML IV (03:40)
--- NOTE | 2022-10-27 07:05 | PC.NURSE ---
Shift note: Pt continue to have difficulty with gait. Unable to stand and move by himself. Occasional confusion and delay speech noted. In exception of systolic Bp>150, all other v/s are stable. Pt denied pain. Had frequency and urgency of urine. Bladder scan done at 0630 was 583ml. Straight cath done and drained 700ml. Pt has reddened area at the groin but denied pain. Pt had interrupted sleep due to urine urgency.
[2022-10-27 07:15] LABS: Lactate* 0.6 mmol/L (0.5-1.9)
[2022-10-27 07:22] LABS: Basophils Percent Auto 0.2 % (0.0-3.0); Hematocrit 36.6 % (37.0-53.0); Hemoglobin* 12.7 gm/dL (13.5-17.5); Immature Granulocytes Pct Auto 0.7 %; Lymphocytes Percent Auto 7.9 % (20-44); Mean Corpuscular HGB Conc 35 gm/dL (32-36); Mean Corpuscular Hemoglobin 32 pg (26-34); Mean Corpuscular Volume 93 fL (80-100); Monocytes Percent Auto 10.9 % (0.0-11.0); Neutrophils Percent Auto 80.3 % (42.0-72.0); Platelet Count* 153 K/uL (140-440); RDW Coefficient of Variation % 14.5 % (11.5-15.5); Red Blood Count 3.92 m/uL (4.30-5.90); White Blood Count* 4.05 K/uL (4.50-11.00)
[2022-10-27 07:28] LABS: Slide Review Reflex No
[2022-10-27 07:45] LABS: Chloride* 108 mmol/L (96-114); Potassium* 4.8 mmol/L (3.6-5.1); Sodium* 137 mmol/L (135-149)
[2022-10-27 07:47] LABS: Bilirubin Direct* 0.4 mg/dL (0.0-0.5); Bilirubin Total* 1.6 mg/dL (0.1-1.5); Carbon Dioxide* 18 mmol/L (20-32); Creatinine* 1.5 mg/dL (0.5-1.5); Est. Creatinine Clearance* 44.33; Estimated Glomerular Filt Rate 50 ml/min
[2022-10-27 07:48] LABS: Alanine Aminotransferase* 10 U/L (4-50); Alkaline Phosphatase* 65 U/L (40-150); Aspartate Amino Transferase* 21 U/L (12-35); Blood Urea Nitrogen* 28 mg/dL (7-30); Calcium* 9.1 mg/dL (8.4-10.6); Glucose* 257 mg/dL (60-115); Magnesium* 1.7 mg/dL (1.5-2.6); Total Protein* 6.7 g/dL (6.0-8.3)
[2022-10-27 08:01] LABS: Troponin I* 0.07 ng/mL (0.01-0.04)
[2022-10-27 08:14] LABS: Thyroid Stimulating Hormone* 0.262 uIU/mL (0.270-4.20)
--- NOTE | 2022-10-27 08:31 | CRLHL7_ITS ---
For Patients: As a result of the Century Cures Act, medical imaging exams and procedure reports are released immediately into your electronic medical record. You may view this report before your referring provider. If you have questions, please contact your health care provider. INDICATION: Sepsis TECHNIQUE: Chest 1 views. COMPARISON: None. FINDINGS: Cardiovascular and mediastinum: Heart size and vasculature are normal in caliber and appearance. Lungs and pleural spaces: Hypoinflated lungs with interstitial prominence which may relate to low lung volumes or mild interstitial edema versus less likely nonspecific infectious/inflammatory process. No evidence of focal consolidation. No sign of pleural effusion. No pneumothorax. Bones and soft tissues: No significant findings. IMPRESSION: Hypoinflated lungs with interstitial prominence which may relate to low lung volumes or mild interstitial edema versus less likely nonspecific infectious/inflammatory process. No evidence of focal consolidation. Dictated by Jonathon Yu MD @ 10/27/2022 10:01:06 AM (Electronically Signed)
[2022-10-27 09:35] LABS: D Dimer Quantitative* 0.45 ug/ml (0.00-0.50)
[2022-10-27 09:36] LABS: HCO3 VBG 19 mmol/L (21-28); PCO2 VBG 35 mmHG (40-50); PO2 VBG 79.6 mmHG (25-47); pH VBG 7.335 (7.32-7.43)
[2022-10-27 09:51] LABS: Free T4 Free Thyroxine* 1.49 ng/dL (0.70-1.85); Procalcitonin* 0.09 ng/mL (<0.50)
[2022-10-27] MEDS: TACROLIMUS 0.5 MG CAPSULE 1.5 MG PO (10:03)
[2022-10-27] MEDS: azaTHIOprine 50 MG TABLET 150 MG PO (10:03)
[2022-10-27] MEDS: MULTIVITAMIN/MINERALS 1 TABLET 1 TAB PO (10:03)
[2022-10-27] MEDS: OMEPRAZOLE 20 MG CAPSULE DR 40 MG PO (10:04)
[2022-10-27] MEDS: GABAPENTIN 600 MG TABLET 300 MG PO ×2 (10:04→20:18)
[2022-10-27] MEDS: CITALOPRAM HYDROBROMIDE 20 MG TABLET 40 MG PO (10:04)
[2022-10-27] MEDS: TAMSULOSIN HCL 0.4 MG CAPSULE PO (10:04)
[2022-10-27] MEDS: FERROUS SULFATE 325 MG TABLET PO (10:05)
[2022-10-27] MEDS: SODIUM BICARBONATE 650 MG TABLET 1300 MG PO ×2 (10:07→20:20)
[2022-10-27 10:19] LABS: Appearance Urine Clear (Clear); Bilirubin Urine 1+ (Negative); Blood Urine 2+ (Negative); Color Urine Yellow (Yellow); Glucose Urine 2+ (Negative); Ketones Urine 2+ (Negative); Leukocyte Esterase Urine Negative (Negative); Nitrite Urine Negative (Negative); Protein Urine Trace (Negative); Specific Gravity Urine 1.025 (1.000-1.030); Urobilinogen Urine 0.2 (0.2-1.0)
[2022-10-27 10:29] LABS: Squamous Epithelial Cell Urine Few (None-Few); WBC Urine 0-2 (0-5)
[2022-10-27 10:30] LABS: Other Sediment Urine URIC ACID CRYSTALS
[2022-10-27] MEDS: FUROSEMIDE 10 MG/ML inj 20 MG IVP (10:30)
[2022-10-27] MEDS: 0.9 % SODIUM CHLORIDE 1000 ml 1,000 ML 125 ML IV ×2 (10:30→19:33)
[2022-10-27 10:55] LABS: Hemoglobin A1C* 6.29 % (0-5.6)
--- NOTE | 2022-10-27 12:28 | P.IMPN_ITS ---
Progress Note: A&P Assessment and plan (1) Metabolic encephalopathy: Problem details: This is part of the constellation of constitutional symptoms patient is experiencing at this time. This is possibly primary problem. Actually will remove the fentanyl and see if he clears mentally. remains tachy and has a slight bump in trop - ordered echo -gave lasix one time dose based on CXR findings, khanna placed (urinary retention noted) -hold D5, scheduled insulin. follow glucose and use SSI as needed. pt not eating/no appetite. A1C 6.3 -acidosis is resolving Status: Acute (2) Weakness: Problem details: Profound weakness to the point he is no longer able to care for himself. 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 Continue anti rejection drugs and consult hepatic transplant team if not rapidly improving Status: Acute (4) Abdominal pain, vomiting, and diarrhea: Problem details: -viral? opioid withdrawal? transplant rejection? -CDIFF not sent as stooling has been quiescent -no fever -dehydration resolving -khanna placed -encourage nutrition, stop D5 Status: Acute (5) Type 2 diabetes mellitus treated with insulin: Problem details: A1C 6.3; not eating well. will hold insulin except for SSI as needed. Status: Acute Subjective Date Seen: 10/27/22 Interval history: Daily Progress Note - Hospital Medicine Day #:2 CC: abdominal pain, weakness, AMS Patient was admitted through the emergency room last night with abdominal pain/diarrhea/vomiting, progressive weakness and poor self-care over the last 2 weeks worsening in the last 5 days, importantly noting his history of liver and renal transplants several years ago. 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 4+ ketones, tachy, acidotic = dehyration. Acute issues remain: Tachycardia, acute mental status change, weakness, mild bump in his troponin. teasing out [oor med compliance. new urinary retention. He is currently not on antibiotics, pressors. on NS (was on D5 overnight). OVERNIGHT UPDATES FROM STAFF & MED, LAB, IMAGING UPDATES Blood pressure is 186/94. Pulse 113. Afebrile. On room air. White count is 4.05. D-dimer normal Blood gas shows normal pH Electrolytes have improved and acidosis is resolving. Creatinine has improved. A1c to 6.3 - holding scheduled insulin and only p.r.n. sliding scale. Troponin is 0.07, POC troponin was 0.01 yesterday CRP and procalcitonin are normal Ketonuria is improving. No sign of infection in his UA. But urine culture is now pending. Uric acid crystals noted. C diff is pending that there has not been a stool sample available. Positive for opioids and marijuana. Patient is on chronic opioids, prescribed One-view chest x-ray this morning Shows hypoinflated lungs with interstitial prominence likely mild interstitial edema and less likely infectious. Head CT unremarkable on admission Noncontrast abdominal pelvic CT no acute or specific findings. Blood cultures and urine culture pending Objective: Lethargic, slow to respond. Flat affect. Vitals: see above Lungs: Clear. Abdomen: Obese, no guarding. Cardiac: S1S2. Neuro: Generalized weakness without lateralizing signs. Able to cross at the ankles however weak generally in lifting his legs against gravity. Disposition/Potential discharge - Likely to return to previous living situation. Total time is 35 minutes with greater than 50% spent in counseling and coordination of care. Exam Const: Vital Signs, click to edit/add: Vital Signs - 24 hr 10/26/22 12:30 10/26/22 12:32 10/26/22 12:52 Temperature Pulse Rate 122 H 120 H 117 H Pulse Rate [Apical ] Pulse Rate [Pulse Oximeter] Respiratory Rate Blood Pressure 164/86 H Blood Pressure [Le ft Arm] Pulse Oximetry 98 98 99 [facility] 13:00 10/26/22 13:02 10/26/22 13:15 Temperature Pulse Rate 117 H 117 H 120 H Pulse Rate [Apical ] Pulse Rate [Pulse Oximeter] Respiratory Rate Blood Pressure 183/104 H Blood Pressure [Le ft Arm] Pulse Oximetry 99 99 98 [facility] 10/26/22 13:30 10/26/22 13:32 10/26/22 13:45 Temperature Pulse Rate 122 H 122 H 123 H Pulse Rate [Apical ] Pulse Rate [Pulse Oximeter] Respiratory Rate Blood Pressure 196/109 H Blood Pressure [Le ft Arm] Pulse Oximetry 98 98 98 [facility] 10/26/22 14:00 10/26/22 14:02 10/26/22 14:03 Temperature Pulse Rate 120 H 122 H 121 H Pulse Rate [Apical ] Pulse Rate [Pulse Oximeter] Respiratory Rate Blood Pressure 187/121 H Blood Pressure [Le ft Arm] Pulse Oximetry 100 98 98 Oxygen Delivery [facility] 10/26/22 14:23 10/26/22 14:30 10/26/22 14:37 Temperature Pulse Rate 117 H 117 H 119 H Pulse Rate [Apical ] Pulse Rate [Pulse Oximeter] Respiratory Rate Blood Pressure 163/92 H Blood Pressure [Le ft Arm] Pulse Oximetry 99 98 99 Oxygen Delivery Me thod 10/26/22 14:45 10/26/22 15:02 10/26/22 15:03 Temperature Pulse Rate 117 H 115 H 115 H Pulse Rate [Apical ] Pulse Rate [Pulse Oximeter] Respiratory Rate Blood Pressure 173/118 H Blood Pressure [Le ft Arm] Pulse Oximetry 98 98 98 [facility] 10/26/22 15:15 10/26/22 15:30 10/26/22 15:32 Temperature Pulse Rate 115 H 119 H 117 H Pulse Rate [Apical ] Pulse Rate [Pulse Oximeter] Respiratory Rate Blood Pressure 153/78 H Blood Pressure [Le ft Arm] Pulse Oximetry 99 100 98 [facility] 10/26/22 15:33 10/26/22 15:45 10/26/22 16:00 Temperature Pulse Rate 116 H 116 H 114 H Pulse Rate [Apical ] Pulse Rate [Pulse Oximeter] Respiratory Rate Blood Pressure Blood Pressure [Le ft Arm] Pulse Oximetry 98 98 96 Oxygen Delivery [place] 10/26/22 16:02 10/26/22 16:46 10/26/22 19:00 Temperature 97.7 F 97.9 F Pulse Rate 112 H Pulse Rate [Apical ] Pulse Rate [Pulse Oximeter] 115 H 119 H Respiratory Rate 22 22 Blood Pressure 164/77 H Blood Pressure [Le ft Arm] 187/95 H 186/93 H Pulse Oximetry 96 97 99 [facility] Room Air 10/26/22 20:20 10/26/22 23:00 10/26/22 23:00 Temperature Pulse Rate 113 H Pulse Rate [Apical ] Pulse Rate [Pulse Oximeter] 114 H Respiratory Rate 22 Blood Pressure Blood Pressure [Le ft Arm] Pulse Oximetry 98 [facility] 10/26/22 23:00 10/26/22 23:00 10/27/22 03:00 Temperature 98.3 F 98.1 F Pulse Rate Pulse Rate [Apical ] 114 H 113 H Pulse Rate [Pulse Oximeter] Respiratory Rate 18 18 18 Blood Pressure Blood Pressure [Le ft Arm] 158/88 H 169/90 H Pulse Oximetry 96 96 97 Oxygen Delivery Me th[facility] Room Air Room Air Room Air 10/27/22 07:00 10/27/22 07:30 10/27/22 07:30 Temperature 97.6 F Pulse Rate 113 H Pulse Rate [Apical ] 113 H 113 H Pulse Rate [Pulse Oximeter] Respiratory Rate 18 18 Blood Pressure Blood Pressure [Le ft Arm] 186/94 H Pulse Oximetry 98 Oxygen Delivery Me thod Room Air 10/27/22 07:30 Temperature Pulse Rate Pulse Rate [Apical ] Pulse Rate [Pulse Oximeter] Respiratory Rate Blood Pressure Blood Pressure [Le ft Arm] Pulse Oximetry 98 Oxygen Delivery [place] Room Air Labs Labs: Laboratory Results - last 24 hr 10/26/22 10/26/22 10/26/22 11:50 18:28 18:29 WBC 6.08 RBC 4.49 Hgb 14.6 Hct 41.3 MCV 92 MCH 33 MCHC 35 RDW Coeff of [place] 14.2 Plt Count 175 Neut % (Auto) 91.1 H Lymph % (Auto) 3.5 L [place] % (Auto) 4.9 Eos % (Auto) 0.0 Baso % (Auto) 0.2 Neut # (Auto) 5.50 Lymph # (Auto) 0.20 L [place] # (Auto) 0.30 Eos # (Auto) 0.00 Baso # (Auto) 0.01 Abs Immat Gran (auto) 0.02 Imm/Tot Granulo (auto) 0.3 D-Dimer Quant (PE/DVT) VBG pH VBG pCO2 VBG pO2 VBG HCO3 Sodium 135 Potassium 5.5 H Chloride 98 Carbon Dioxide 8 L* BUN 32 H Creatinine 2.1 H Estimated Creat Clear 31.67 Estimated GFR 33 Glucose 390 H* Hemoglobin A1c Lactate Calcium 9.9 Phosphorus Magnesium 1.5 Total Bilirubin 2.3 H Direct Bilirubin AST 30 ALT 16 Alkaline Phosphatase 73 Troponin I C-Reactive Protein 0.8 NT-Pro-B Natriuret Pep Total Protein 8.7 H Albumin 5.0 Lipase Procalcitonin TSH Free T4 Urine Color Yellow Urine Appearance Clear Urine pH 5.0 Ur Specific [place] 1.025 Urine Protein 1+ A Urine Glucose (UA) 2+ A Urine Ketones 4+ A Urine Blood Trace-intact A Urine Nitrite Negative Urine Bilirubin 1+ A Urine Urobilinogen 0.2 Ur Leukocyte Esterase Negative Urine RBC 0-2 Urine WBC 0-2 Ur Squamous Epith Cells None Other Sediment Urine Bacteria None Urine Opiates Screen POSITIVE A* Ur Oxycodone Screen Negative Urine Methadone Screen Negative Ur Propoxyphene Screen Negative Ur Barbiturates Screen Negative U Tricyclic Antidepress Negative Ur Phencyclidine Scrn Negative Ur Amphetamines Screen Negative U Methamphetamines Scrn Negative U Benzodiazepines Scrn Negative Urine Cocaine Screen Negative U Marijuana (THC) Screen POSITIVE A* Ur Drug Screen Comment See Note Ethyl Alcohol < 0.01 L SARS-CoV-2 (PCR) Negative SARS-CoV-2 Lab Acknowledgement 10/26/22 10/26/22 10/26/22 19:23 19:50 20:50 WBC 5.71 RBC 4.23 L Hgb 13.7 Hct 39.8 MCV 94 MCH 32 MCHC 34 RDW Coeff of [place] 14.5 Plt Count 170 Neut % (Auto) 85.8 H Lymph % (Auto) 5.6 L [place] % (Auto) 8.1 Eos % (Auto) 0.0 Baso % (Auto) 0.0 Neut # (Auto) 4.90 Lymph # (Auto) 0.30 L [place] # (Auto) 0.50 Eos # (Auto) 0.00 Baso # (Auto) 0.00 Abs Immat Gran (auto) 0.03 Imm/Tot Granulo (auto) 0.5 D-Dimer Quant (PE/DVT) VBG pH VBG pCO2 VBG pO2 VBG HCO3 Sodium 137 Potassium 5.2 H Chloride 103 Carbon Dioxide 14 L BUN 32 H Creatinine 1.8 H Estimated Creat Clear 36.94 Estimated GFR 40 Glucose 321 H Hemoglobin A1c Lactate Calcium 9.1 Phosphorus 3.7 Magnesium Total Bilirubin Direct Bilirubin AST ALT Alkaline Phosphatase Troponin I C-Reactive Protein 0.6 NT-Pro-B Natriuret Pep 5280 Total Protein Albumin Lipase 42 Procalcitonin TSH Free T4 Urine Color Urine Appearance Urine pH Ur Specific [place] Urine Protein Urine Glucose (UA) Urine Ketones Urine Blood Urine Nitrite Urine Bilirubin Urine Urobilinogen Ur Leukocyte Esterase Urine RBC Urine WBC Ur Squamous Epith Cells Other Sediment Urine Bacteria Urine Opiates Screen Ur Oxycodone Screen Urine Methadone Screen Ur Propoxyphene Screen Ur Barbiturates Screen U Tricyclic Antidepress Ur Phencyclidine Scrn Ur Amphetamines Screen U Methamphetamines Scrn U Benzodiazepines Scrn Urine Cocaine Screen U Marijuana (THC) Screen Ur Drug Screen Comment Ethyl Alcohol SARS-CoV-2 (PCR) Lab Acknowledgement 10/27/22 10/27/22 10/27/22 06:34 09:21 10:31 WBC 4.05 L RBC 3.92 L Hgb 12.7 L Hct 36.6 L MCV 93 MCH 32 MCHC 35 RDW Coeff of [place] 14.5 Plt Count 153 Neut % (Auto) 80.3 H Lymph % (Auto) 7.9 L [place] % (Auto) 10.9 Eos % (Auto) 0.0 Baso % (Auto) 0.2 Neut # (Auto) 3.30 Lymph # (Auto) 0.30 L [place] # (Auto) 0.40 Eos # (Auto) 0.00 Baso # (Auto) 0.00 Abs Immat Gran (auto) 0.00 Imm/Tot Granulo (auto) 0.7 D-Dimer Quant (PE/DVT) 0.45 VBG pH 7.335 VBG pCO2 35 L VBG pO2 79.6 H VBG HCO3 19 L Sodium 137 Potassium 4.8 Chloride 108 Carbon Dioxide 18 L BUN 28 Creatinine 1.5 Estimated Creat Clear 44.33 Estimated GFR 50 Glucose 257 H Hemoglobin A1c 6.29 H Lactate 0.6 Calcium 9.1 Phosphorus Magnesium 1.7 Total Bilirubin 1.6 H Direct Bilirubin 0.4 AST 21 ALT 10 Alkaline Phosphatase 65 Troponin I 0.07 H* C-Reactive Protein NT-Pro-B Natriuret Pep Total Protein 6.7 Albumin 4.0 Lipase Procalcitonin 0.09 TSH 0.262 L Free T4 1.49 Urine Color Yellow Urine Appearance Clear Urine pH 5.0 Ur Specific [place] 1.025 Urine Protein Trace A Urine Glucose (UA) 2+ A Urine Ketones 2+ A Urine Blood 2+ A Urine Nitrite Negative Urine Bilirubin 1+ A Urine Urobilinogen 0.2 Ur Leukocyte Esterase Negative Urine RBC 10-25 A Urine WBC 0-2 Ur Squamous Epith Cells Few Other Sediment URIC ACID CRYSTALS Urine Bacteria None Urine Opiates Screen Ur Oxycodone Screen Urine Methadone Screen Ur Propoxyphene Screen Ur Barbiturates Screen U Tricyclic Antidepress Ur Phencyclidine Scrn Ur Amphetamines Screen U Methamphetamines Scrn U Benzodiazepines Scrn Urine Cocaine Screen U Marijuana (THC) Screen Ur Drug Screen Comment Ethyl Alcohol SARS-CoV-2 (PCR) Lab Acknowledgement Test Added Test Added
[2022-10-27 13:24] LABS: Gamma Glutamyl Transpeptidase* 29 U/L (8-55)
--- NOTE | 2022-10-27 13:57 | REH.OT ---
Orders received for OT eval and treat. When approached for evaluation, patient not able to keep his eyes open to fully participate. Will attempt 10/28/22.
[2022-10-27 16:51] LABS: Uric Acid* 11.6 mg/dL (2.2-8.4)
[2022-10-27 17:04] LABS: Troponin I* 0.03 ng/mL (0.01-0.04)
[2022-10-27] MEDS: TACROLIMUS 0.5 MG CAPSULE 2 MG PO (17:41)
--- NOTE | 2022-10-27 19:20 | PC.NURSE ---
FENTANYL PATCH WAS REMOVED AND WASTED. WASTE WAS WITNESSED BY VIVIANE FIGUEROA RN.
--- NOTE | 2022-10-27 19:21 | PC.NURSE ---
PATIENT'S BP ELEVATED THIS AM AND HEART RATE 110'S. DR. GOULD UPDATED. IVF CHANGED AND IV LASIX ADMINISTERED. CASEY PLACED AND DRAINING WELL. PATIENT VERY DROWSY AND LETHARGIC. SPEECH DELAYED AND SOFT SPOKEN. UP WITH A2, WALKER AND GAIT BELT TO RECLINER. PATIENT WEAK BUT ABLE TO WALK SLOWLY. FENTANYL PATCH REMOVED FROM LEFT SHOULDER AND WASTED WITH BENTLEY PAN. PATIENT REFUSED BREAKFAST AND LUNCH BUT DID EAT 25% DINNER. DENIED N/V.
[2022-10-27] MEDS: ATORVASTATIN 10 MG TABLET 20 MG PO (20:18)
[2022-10-27] MEDS: DOXAZOSIN 4 MG TABLET PO (20:20)
[2022-10-28] VITALS (8 sets, daily range): BP systolic 144–178; BP diastolic 74–94; PULSE 71–111; RESP 16–20; TEMP 36–36.8; O2SAT 94–99
[2022-10-28] MEDS: 0.9 % SODIUM CHLORIDE 1000 ml 1,000 ML 125 ML IV ×3 (03:06→20:18)
--- NOTE | 2022-10-28 06:42 | PC.NURSE ---
: Cooperative. A&O. Minimal interactions, slept throughout shift till 0600. Pt seeming much more alert this AM & was engaging in conversation. pt stated he feels better. Prior to coming to the hospital, pt said he had not slept for 3 days d/t being so sick. Oil Field Equipment Mechanic asked pt if he is interested in putting in a breakfast order today (declined yesterday) and he said ?maybe, just not right now?. Minimal PO intake, encouraged fluids.?Renteria patent and draining. No BM, need stool sample. Tele ? Sinus Tach. HR 109-113.
[2022-10-28 07:49] LABS: Eosinophils Percent Auto 0.4 % (0.0-7.0); Hematocrit 35.8 % (37.0-53.0); Hemoglobin* 12.3 gm/dL (13.5-17.5); Immature Granulocytes Pct Auto 0.7 %; Lactate* 0.8 mmol/L (0.5-1.9); Lymphocytes Percent Auto 16.4 % (20-44); Mean Corpuscular HGB Conc 34 gm/dL (32-36); Mean Corpuscular Hemoglobin 32 pg (26-34); Mean Corpuscular Volume 94 fL (80-100); Monocytes Percent Auto 7.8 % (0.0-11.0); Neutrophils Percent Auto 74.7 % (42.0-72.0); RDW Coefficient of Variation % 14.1 % (11.5-15.5); Red Blood Count 3.82 m/uL (4.30-5.90); White Blood Count* 2.69 K/uL (4.50-11.00)
[2022-10-28 07:58] LABS: Slide Review Reflex Yes
[2022-10-28 07:59] LABS: Slide Review Acceptable Review (Acceptable)
[2022-10-28 08:23] LABS: Albumin* 3.6 g/dL (3.3-5.0); Chloride* 111 mmol/L (96-114); Potassium* 4.3 mmol/L (3.6-5.1); Sodium* 138 mmol/L (135-149)
[2022-10-28 08:25] LABS: Creatinine* 1.4 mg/dL (0.5-1.5); Estimated Glomerular Filt Rate 54 ml/min
[2022-10-28 08:26] LABS: Alanine Aminotransferase* 12 U/L (4-50); Alkaline Phosphatase* 59 U/L (40-150); Aspartate Amino Transferase* 26 U/L (12-35); Bilirubin Direct* 0.4 mg/dL (0.0-0.5); Bilirubin Total* 1.7 mg/dL (0.1-1.5); Blood Urea Nitrogen* 24 mg/dL (7-30); Calcium* 8.7 mg/dL (8.4-10.6); Carbon Dioxide* 19 mmol/L (20-32); Gamma Glutamyl Transpeptidase* 26 U/L (8-55); Glucose* 202 mg/dL (60-115); Total Protein* 6.3 g/dL (6.0-8.3)
[2022-10-28] MEDS: FERROUS SULFATE 325 MG TABLET PO (08:36)
[2022-10-28] MEDS: CITALOPRAM HYDROBROMIDE 20 MG TABLET 40 MG PO (08:36)
[2022-10-28] MEDS: TAMSULOSIN HCL 0.4 MG CAPSULE PO (08:36)
[2022-10-28] MEDS: MULTIVITAMIN/MINERALS 1 TABLET 1 TAB PO (08:36)
[2022-10-28] MEDS: OMEPRAZOLE 20 MG CAPSULE DR 40 MG PO (08:36)
[2022-10-28] MEDS: SODIUM BICARBONATE 650 MG TABLET 1300 MG PO ×2 (08:37→21:41)
[2022-10-28] MEDS: azaTHIOprine 50 MG TABLET 150 MG PO (08:37)
[2022-10-28] MEDS: GABAPENTIN 600 MG TABLET 300 MG PO ×2 (08:37→21:40)
[2022-10-28] MEDS: TACROLIMUS 0.5 MG CAPSULE 1.5 MG PO (08:38)
--- NOTE | 2022-10-28 08:57 | PM.IMPN1 ---
Progress Note: A&P Assessment and plan (1) Metabolic encephalopathy: Problem details: This is part of the constellation of constitutional symptoms patient is experiencing at this time. This is possibly primary problem. Removing the fentanyl patch seems to have helped. Attempting p.o. breakfast did not go well this morning. remains tachy with a stable echocardiogram Adding labs this morning, abdominal x-rays -gave lasix one time dose based on CXR findings, khanna placed (urinary retention noted) -hold D5, scheduled insulin. follow glucose and use SSI as needed. pt not eating/no appetite. A1C 6.3 -acidosis is resolved Status: Acute (2) Abdominal pain, vomiting, and diarrhea: Problem details: -viral - maybe? Bowel obstruction - no. opioid withdrawal - unlikely? transplant rejection - unlikely? -CDIFF not sent as stooling has been quiescent -no fever -dehydration resolving -khanna placed -encourage nutrition, stop D5 Status: Acute (3) Weakness: Problem details: Profound weakness to the point he is no longer able to care for himself. 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 Continue anti rejection drugs and consult hepatic transplant team if not rapidly improving LFTs are stone cold normal. Bilirubin is just mildly elevated. This is lower on my list of concerns. Status: Acute (5) Type 2 diabetes mellitus treated with insulin: Problem details: A1C 6.3; not eating well. will hold insulin except for SSI as needed. Status: Acute (6) Sinus tachycardia: Problem details: Unclear. Stable. Hypertensive. staring metoprolol tartrate 25mg bid. Status: Acute (7) Elevated uric acid in blood: Problem details: starting 100mg allopurinol daily Status: Acute (8) Metabolic acidosis: Problem details: Much improved. Renal function is returning to his baseline. PH is normal. Status: Acute (9) ROSANA (acute kidney injury): Problem details: Much improved. His baseline is 1.3-1.6. Status: Acute Subjective Date Seen: 10/28/22 Interval history: Daily Progress Note - Hospital Medicine Day #: 3 CC: abdominal pain, weakness, AMS Patient was admitted through the emergency room 2 nights ago with abdominal pain/diarrhea/vomiting, progressive weakness and poor self-care over the last 2 weeks worsening in the last 5 days, importantly noting his history of liver and renal transplants several years ago as well as hx of cholecystectomy. 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 4+ ketones, tachy, acidotic = dehyration. Acute issues remain: Tachycardia, heart rate between 110 and 114, acute mental status change - slight improvement. weakness, mild bump in his troponin. teasing out poor med compliance. new urinary retention. He is currently not on antibiotics, pressors. on NS (was on D5 1st night). Blood sugars are improved from admission. Were holding his scheduled insulin and only using a sliding scale as his appetite has been quite poor. OVERNIGHT UPDATES FROM STAFF & MED, LAB, IMAGING UPDATES Nursing report : Cooperative. A&O. Minimal interactions, slept throughout shift till 0600. Pt seeming much more alert this AM & was engaging in conversation. pt stated he feels better. Prior to coming to the hospital, pt said he had not slept for 3 days d/t being so sick. Lang Interpreter asked pt if he is interested in putting in a breakfast order today (declined yesterday) and he said ?maybe, just not right now?. Minimal PO intake, encouraged fluids. Khanna patent and draining. No BM, need stool sample. Tele ? Sinus Tach. HR 109-113. This morning he attempted his breakfast tray and only after a few bites he felt increasing abdominal pressure and pain. I am adding a lipase, blood gas, CRP, GGT to his labs this morning. His elevated bilirubin is about the same. Keeping in mind he has had a cholecystectomy. His lipase was normal on admission. He has got good bowel sounds. His initial CT was without contrast because of his renal function. However there was no acute findings. 168/92. Pulse 111. 98.2 96% on air CBC reflects white blood cell count 2.69, ANC 2000 Hemoglobin is relatively stable, at his baseline of 12 A1c 6.2 Creatinine 1.4, this is down from 2.1 at admission Total bili 1.7, the rest of his LFTs are normal Troponin is 0.03. This is down from 0.07 - likely related to his resolving ROSANA Blood cultures are negative at 24 hours Urine culture negative Echo LVEF 70-75%. Moderate concentric LVH TAVR present with no obvious abnormality Blood sugars 198, 233, 172, 259 Objective: Lethargic, slow to respond. Flat affect. Vitals: see above Lungs: Clear. Abdomen: Obese, no guarding. Cardiac: S1S2. Neuro: Generalized weakness without lateralizing signs. Able to cross at the ankles however weak generally in lifting his legs against gravity. Disposition/Potential discharge - Likely to return to previous living situation. Total time is 35 minutes with greater than 50% spent in counseling and coordination of care. Exam Const: Vital Signs, click to edit/add: Vital Signs - 24 hr 10/27/22 12:00 10/27/22 15:00 10/27/22 15:00 Temperature 96.5 F L Pulse Rate 111 H Pulse Rate [Apical ] 114 H Pulse Rate [Pulse Oximeter] 114 H Respiratory Rate 18 Blood Pressure [Le ft Arm] 144/87 H Pulse Oximetry [address]od Room Air Room Air 10/27/22 15:00 10/27/22 15:00 10/27/22 19:00 Temperature 97.0 F L 97.6 F Pulse Rate Pulse Rate [Apical ] 111 H 106 H Pulse Rate [Pulse Oximeter] 111 H Respiratory Rate 18 18 18 Blood Pressure [Le ft Arm] 142/83 H 156/88 H Pulse Oximetry 96 95 [facility] 10/27/22 22:52 10/27/22 23:00 10/27/22 23:00 Temperature 97.1 F L Pulse Rate 109 H Pulse Rate [Apical ] Pulse Rate [Pulse Oximeter] 111 H 111 H Respiratory Rate 18 18 Blood Pressure [Le ft Arm] 154/75 H Pulse Oximetry 96 [facility] 10/27/22 23:00 10/28/22 03:00 10/28/22 07:22 Temperature 97.2 F L Pulse Rate 111 H Pulse Rate [Apical ] Pulse Rate [Pulse Oximeter] 110 H Respiratory Rate 18 20 Blood Pressure [Le ft Arm] 168/90 H Pulse Oximetry 96 99 [facility] Air 10/28/22 07:54 10/28/22 07:54 10/28/22 07:57 Temperature 98.2 F Pulse Rate Pulse Rate [Apical ] Pulse Rate [Pulse Oximeter] 111 H 111 H Respiratory Rate 16 20 Blood Pressure [Le ft Arm] 168/92 H Pulse Oximetry 98 96 [facility] Air Labs Labs: Laboratory Results - last 24 hr 10/27/22 10/27/22 10/27/22 06:34 09:21 10:31 WBC RBC Hgb Hct MCV MCH MCHC RDW Coeff of [place] Plt Count Neut % (Auto) Lymph % (Auto) [place] % (Auto) Eos % (Auto) Baso % (Auto) Neut # (Auto) Lymph # (Auto) [place] # (Auto) Eos # (Auto) Baso # (Auto) Abs Immat Gran (auto) Imm/Tot Granulo (auto) Diff Slide Review D-Dimer Quant (PE/DVT) 0.45 VBG pH 7.335 VBG pCO2 35 L VBG pO2 79.6 H VBG HCO3 19 L Sodium Potassium Chloride Carbon Dioxide BUN Creatinine Estimated Creat Clear Estimated GFR Glucose Hemoglobin A1c 6.29 H Lactate Uric Acid Calcium Total Bilirubin Direct Bilirubin GGT 29 AST ALT Alkaline Phosphatase Troponin I Total Protein Albumin Procalcitonin 0.09 Free T4 1.49 Urine Color Yellow Urine Appearance Clear Urine pH 5.0 Ur Specific [place] 1.025 Urine Protein Trace A Urine Glucose (UA) 2+ A Urine Ketones 2+ A Urine Blood 2+ A Urine Nitrite Negative Urine Bilirubin 1+ A Urine Urobilinogen 0.2 Ur Leukocyte Esterase Negative Urine RBC 10-25 A Urine WBC 0-2 Ur Squamous Epith Cells Few Other Sediment URIC ACID CRYSTALS Urine Bacteria None Lab Acknowledgement Test Added Test Added 10/27/22 10/27/22 10/28/22 13:10 16:07 07:40 WBC 2.69 L RBC 3.82 L Hgb 12.3 L Hct 35.8 L MCV 94 MCH 32 MCHC 34 RDW Coeff of [place] 14.1 Plt Count Neut % (Auto) 74.7 H Lymph % (Auto) 16.4 L [place] % (Auto) 7.8 Eos % (Auto) 0.4 Baso % (Auto) 0.0 Neut # (Auto) 2.00 Lymph # (Auto) 0.40 L [place] # (Auto) 0.20 Eos # (Auto) 0.00 Baso # (Auto) 0.00 Abs Immat Gran (auto) 0.00 Imm/Tot Granulo (auto) 0.7 Diff Slide Review Acceptable Review D-Dimer Quant (PE/DVT) VBG pH VBG pCO2 VBG pO2 VBG HCO3 Sodium 138 Potassium 4.3 Chloride 111 Carbon Dioxide 19 L BUN 24 Creatinine 1.4 Estimated Creat Clear 47.50 Estimated GFR 54 Glucose 202 H Hemoglobin A1c Lactate 0.8 Uric Acid 11.6 H Calcium 8.7 Total Bilirubin 1.7 H Direct Bilirubin 0.4 GGT 26 AST 26 ALT 12 Alkaline Phosphatase 59 Troponin I 0.03 Total Protein 6.3 Albumin 3.6 Procalcitonin Free T4 Urine Color Urine Appearance Urine pH Ur Specific [place] Urine Protein Urine Glucose (UA) Urine Ketones Urine Blood Urine Nitrite Urine Bilirubin Urine Urobilinogen Ur Leukocyte Esterase Urine RBC Urine WBC Ur Squamous Epith Cells Other Sediment Urine Bacteria Lab Acknowledgement Test Added
--- NOTE | 2022-10-28 09:17 | CRLHL7_ITS ---
For Patients: As a result of the Century Cures Act, medical imaging exams and procedure reports are released immediately into your electronic medical record. You may view this report before your referring provider. If you have questions, please contact your health care provider. Indication: Abdomen pain Technique: Abdomen 2 view. Comparison: 10/26/2022 CT Findings: No dilated bowel loops are present. Postop changes to the right upper quadrant. Bilateral hip replacement hardware. No free intraperitoneal air. Impression: No bowel obstruction. No significant change. Dictated by Rubén Awad MD @ 10/28/2022 12:20:33 PM (Electronically Signed)
[2022-10-28 09:29] LABS: HCO3 VBG 22 mmol/L (21-28); PCO2 VBG 34 mmHG (40-50); pH VBG 7.419 (7.32-7.43)
[2022-10-28 09:33] LABS: Lipase* 36 U/L (23-300)
[2022-10-28 09:45] LABS: C Reactive Protein* < 0.5 mg/dL (0.5-1.0)
[2022-10-28] MEDS: METOPROLOL TARTRATE 25 MG TABLET PO ×2 (09:54→21:40)
[2022-10-28] MEDS: allopurinoL 100 MG TABLET PO (09:54)
[2022-10-28 12:56] LABS: Lab Add On Test New Spec Needed
--- NOTE | 2022-10-28 14:25 | REH.OT ---
Pt. continues to be unarousable when sleeping on 3 attempts for OT eval. Will re-attempt OT eval tomorrow.
[2022-10-28 14:47] LABS: Ammonia* < 9.0 umol/L (13.1-30.0)
[2022-10-28 15:20] LABS: Fecal Occult Blood* Negative (Negative)
--- NOTE | 2022-10-28 15:47 | PC.NURSE ---
end of shift. pt has been pleasant. he is tired and sleepy, he does awake to touch and voice. no pain till breakfast then he had abd pain 5-6/10. md was updated and x ray was ordered. he is alert x2 off on the date. IV is patent. he is a fall risk and turn and reposition. Renteria is patent/ BS [id number] and he got insulin. appepite is poor. he had a black loose incontinent BM. guaiac was negative. he is up with 2 assist walker and GB. tele shows Sinus Tacky. air juan miguel is under him to use for reposition in bed. md was updated. abd pain did go away. he is driking/
--- NOTE | 2022-10-28 19:33 | PC.NURSE ---
[id number]: Patient slow to arouse at beginning of shift. Patient very lethargic and unable to say a whole sentence. After a nap, patient woke up and was AAOx3. Patient asking appropriate questions. Patient able to ambulate with assist of 1, gait belt and walker from commode to chair. Patient able to pull self up in bed. Patient eating dinner. Patient reports he takes his tacrolimus at [id number]. Nursing called pharmacy to report and request time change. Nursing inquired about checking patient tacrolimus trough level to provider, but provider reports he would not rather do this at this time as he is consulting with transplant providers for guidance at this time.
[2022-10-28] MEDS: TACROLIMUS 0.5 MG CAPSULE 2 MG PO (21:38)
[2022-10-28] MEDS: DOXAZOSIN 4 MG TABLET PO (21:39)
[2022-10-28] MEDS: ATORVASTATIN 10 MG TABLET 20 MG PO (21:40)
[2022-10-29] VITALS (7 sets, daily range): BP systolic 138–164; BP diastolic 65–88; PULSE 63–85; RESP 16–20; TEMP 36.6–37.1; O2SAT 96–98
[2022-10-29] MEDS: 0.9 % SODIUM CHLORIDE 1000 ml 1,000 ML 125 ML IV (04:04)
--- NOTE | 2022-10-29 06:00 | PC.NURSE ---
Pt pleasant and cooperativer, Is A&O x3. Renteria draining clear isa urine. Had 1 lg inc stool overnight. Otherwise pt has slept most of this shift with the exception of getting up and going to the BR x2. Hfas had no c/o of abd pain. Up to commode with minimal assist of one
[2022-10-29 08:05] LABS: Basophils Percent Auto 0.4 % (0.0-3.0); Hematocrit 35.1 % (37.0-53.0); Hemoglobin* 12.2 gm/dL (13.5-17.5); Immature Granulocytes Pct Auto 0.8 %; Lymphocytes Percent Auto 20.4 % (20-44); Mean Corpuscular HGB Conc 35 gm/dL (32-36); Mean Corpuscular Hemoglobin 33 pg (26-34); Mean Corpuscular Volume 94 fL (80-100); Monocytes Percent Auto 9.4 % (0.0-11.0); Platelet Count* 126 K/uL (140-440); RDW Coefficient of Variation % 13.8 % (11.5-15.5); Red Blood Count 3.73 m/uL (4.30-5.90); White Blood Count* 2.55 K/uL (4.50-11.00)
[2022-10-29 08:09] LABS: Slide Review Reflex No
[2022-10-29 08:22] LABS: Albumin* 3.5 g/dL (3.3-5.0); Chloride* 106 mmol/L (96-114)
[2022-10-29 08:23] LABS: Potassium* 3.8 mmol/L (3.6-5.1); Sodium* 138 mmol/L (135-149)
[2022-10-29 08:25] LABS: Alkaline Phosphatase* 57 U/L (40-150); Aspartate Amino Transferase* 18 U/L (12-35); Bilirubin Direct* 0.2 mg/dL (0.0-0.5); Bilirubin Total* 1.9 mg/dL (0.1-1.5); Blood Urea Nitrogen* 20 mg/dL (7-30); Calcium* 8.7 mg/dL (8.4-10.6); Carbon Dioxide* 24 mmol/L (20-32); Creatinine* 1.2 mg/dL (0.5-1.5); Est. Creatinine Clearance* 55.42; Estimated Glomerular Filt Rate 65 ml/min; Glucose* 147 mg/dL (60-115); Lipase* 45 U/L (23-300)
[2022-10-29 08:26] LABS: Alanine Aminotransferase* 12 U/L (4-50); Gamma Glutamyl Transpeptidase* 24 U/L (8-55)
[2022-10-29 08:29] LABS: Ionized Calcium* 1.18 mmol/L (1.11-1.30)
[2022-10-29] MEDS: METOPROLOL TARTRATE 25 MG TABLET PO ×2 (09:11→20:55)
[2022-10-29] MEDS: TAMSULOSIN HCL 0.4 MG CAPSULE PO (09:11)
[2022-10-29] MEDS: MULTIVITAMIN/MINERALS 1 TABLET 1 TAB PO (09:11)
[2022-10-29] MEDS: CITALOPRAM HYDROBROMIDE 20 MG TABLET 40 MG PO (09:11)
[2022-10-29] MEDS: FERROUS SULFATE 325 MG TABLET PO (09:12)
[2022-10-29] MEDS: allopurinoL 100 MG TABLET PO (09:12)
[2022-10-29] MEDS: OMEPRAZOLE 20 MG CAPSULE DR 40 MG PO (09:12)
[2022-10-29] MEDS: SODIUM BICARBONATE 650 MG TABLET 1300 MG PO ×2 (09:13→20:54)
[2022-10-29] MEDS: azaTHIOprine 50 MG TABLET 150 MG PO (09:13)
[2022-10-29] MEDS: GABAPENTIN 600 MG TABLET 300 MG PO ×2 (09:14→20:55)
[2022-10-29] MEDS: TACROLIMUS 0.5 MG CAPSULE 1.5 MG PO (09:14)
[2022-10-29] MEDS: MAGNESIUM IV 4 GM/100 ML PIGGYBACK IVPB (10:22)
--- NOTE | 2022-10-29 15:55 | NUTR.NU ---
Nutrition screen complete: Patient is on a regular diet. His mental status has recently cleared. His po intake has improved. He reports a good appetite. He ate 100% of an omelette for breakfast. He reports that he wasn't hungry for lunch, however, he plans to order supper. We discussed available snacks. He will ask for them as needed. Patent has diabetes. He has had education in the past. Reviewed balancing meals using the plate method. He reports that he doesn't have any questions. This RDN offered to change his diet to diabetic. Patient reports that he does not need a diabetic diet as he knows what to order. Weight is 218.9#, height is 68. BMI is above normal limits at 34.4 kg/m2. Skin is intact except for area on wrist. Plan to monitor and follow up further as needed.
--- NOTE | 2022-10-29 17:30 | PC.NURSE ---
Pt alert and oriented to self and place at times; when fully awake. Pt had no complaints of pain during shift. Pt SBA with walker. Pt?s khanna is patent and intact. Pt had multiple incontinent bowel movements throughout shift. Pt saline locked at 10am. Pt up in chair eating, talkative and pleasant. Telemetry discontinued. Pt became lethargic towards noon. Pt Was hard to wake up and would fall asleep almost immediately after being woken up. Brain MRI ordered; late afternoon MRI staff called and stated that MRI could not be done until Tuesday and that if Pt discharges to have it set up for outpatient.?Around 1400 Pt woke up and was alert. Pt did shower with OT mid afternoon when alert. PT sleepy late afternoon early evening. Easier to arouse than previous times in day.? ?
[2022-10-29] MEDS: DOXAZOSIN 4 MG TABLET PO (20:53)
[2022-10-29] MEDS: TACROLIMUS 0.5 MG CAPSULE 2 MG PO (20:54)
[2022-10-29] MEDS: SODIUM CHLORIDE 0.9 % (FLUSH) 10 ML SYRINGE 5 ML IVF (20:54)
[2022-10-29] MEDS: ATORVASTATIN 10 MG TABLET 20 MG PO (20:55)
[2022-10-30] MEDS: DIPHENOXYLATE-ATROP 2.5-0.025 TABLET 2 TAB PO (01:05)
[2022-10-30 03:05] VITALS: BP 136/69; PULSE 85; RESP 16; TEMP 36.6; O2SAT 98
--- NOTE | 2022-10-30 06:50 | PC.NURSE ---
Pt alert and oriented x3. Afebrile. Pt was easily arousable by name, and sound of engineering technical writer knocking and entering room during night.?Pt denies pain, chest pain, SOB, and N/V.?Pt is up SBA with walker gait belt. Pt was up to bathroom x3 with 3 incontinent bowel movements that were loose/soft, pt request medication to help with lose stools, PRN Diphenoxylate-Atrop was given, pt has not had BM since. Pt is states ?I will be going home tomorrow? pt corrects nurse when discussing morning plan to rephrase that he is going home, pt educated about self-care at home and benefits of staying at the hospital. Education was given on diarrhea, encouraged food and fluid intake.?Pt ate ham sandwich and drank some apple juice. Pt is tolerating a reg diet, saline locked. Pt slept intermittently throughout night.?
[2022-10-30 07:00] VITALS: BP 146/70; PULSE 79; RESP 16; TEMP 37; O2SAT 96
[2022-10-30 07:06] LABS: Ionized Calcium* 1.18 mmol/L (1.11-1.30)
[2022-10-30 07:17] LABS: Basophils Percent Auto 0.4 % (0.0-3.0); Eosinophils Percent Auto 1.6 % (0.0-7.0); Hematocrit 32.2 % (37.0-53.0); Hemoglobin* 11.2 gm/dL (13.5-17.5); Immature Granulocytes Pct Auto 0.8 %; Lymphocytes Percent Auto 22.5 % (20-44); Mean Corpuscular HGB Conc 35 gm/dL (32-36); Mean Corpuscular Hemoglobin 32 pg (26-34); Mean Corpuscular Volume 93 fL (80-100); Monocytes Percent Auto 10.4 % (0.0-11.0); Neutrophils Percent Auto 64.3 % (42.0-72.0); Platelet Count* 116 K/uL (140-440); RDW Coefficient of Variation % 13.6 % (11.5-15.5); Red Blood Count 3.46 m/uL (4.30-5.90); White Blood Count* 2.49 K/uL (4.50-11.00)
[2022-10-30 07:22] LABS: Slide Review Reflex No
[2022-10-30 07:42] LABS: Iron* 51 ug/dL (49-181)
[2022-10-30 07:44] LABS: Albumin* 3.3 g/dL (3.3-5.0); Chloride* 103 mmol/L (96-114)
[2022-10-30 07:45] LABS: Potassium* 3.8 mmol/L (3.6-5.1); Sodium* 135 mmol/L (135-149)
[2022-10-30 07:47] LABS: Alanine Aminotransferase* 10 U/L (4-50); Alkaline Phosphatase* 51 U/L (40-150); Aspartate Amino Transferase* 19 U/L (12-35); Bilirubin Total* 1.7 mg/dL (0.1-1.5); Blood Urea Nitrogen* 24 mg/dL (7-30); Carbon Dioxide* 28 mmol/L (20-32); Creatinine* 1.2 mg/dL (0.5-1.5); Est. Creatinine Clearance* 55.42; Estimated Glomerular Filt Rate 65 ml/min; Glucose* 199 mg/dL (60-115); Total Protein* 5.7 g/dL (6.0-8.3)
[2022-10-30 07:48] LABS: Calcium* 8.4 mg/dL (8.4-10.6); Magnesium* 1.7 mg/dL (1.5-2.6); Phosphorus* 3.2 mg/dL (2.5-4.5)
[2022-10-30 07:51] LABS: Percent Iron Saturation 22 % (20-50); Total Iron Binding Capacity 234 ug/dL (261-462)
[2022-10-30] MEDS: allopurinoL 100 MG TABLET PO (08:36)
[2022-10-30] MEDS: azaTHIOprine 50 MG TABLET 150 MG PO (08:37)
[2022-10-30] MEDS: CITALOPRAM HYDROBROMIDE 20 MG TABLET 40 MG PO (08:38)
[2022-10-30] MEDS: FERROUS SULFATE 325 MG TABLET PO (08:38)
[2022-10-30] MEDS: SODIUM BICARBONATE 650 MG TABLET 1300 MG PO (08:39)
[2022-10-30] MEDS: GABAPENTIN 600 MG TABLET 300 MG PO (08:39)
[2022-10-30] MEDS: OMEPRAZOLE 20 MG CAPSULE DR 40 MG PO (08:39)
[2022-10-30] MEDS: MULTIVITAMIN/MINERALS 1 TABLET 1 TAB PO (08:39)
[2022-10-30] MEDS: METOPROLOL TARTRATE 25 MG TABLET PO (08:39)
[2022-10-30] MEDS: SODIUM CHLORIDE 0.9 % (FLUSH) 10 ML SYRINGE 5 ML IVF (08:40)
[2022-10-30] MEDS: TACROLIMUS 0.5 MG CAPSULE 1.5 MG PO (08:41)
[2022-10-30] MEDS: TAMSULOSIN HCL 0.4 MG CAPSULE PO (08:41)
[2022-10-30 11:00] VITALS: BP 118/52; PULSE 63; RESP 18; O2SAT 96
[2022-10-30] MEDS: 0.9 % SODIUM CHLORIDE 250 ml 250 ML 500 ML IV (13:51)
--- NOTE | 2022-10-30 14:41 | P.DS_ITS ---
DS: Providers Provider Date Seen: 10/30/22 Date of admission: 10/26/22 18:03 Primary care physician: Rubén Boyle MD Admitting Clinician: Juan Manuel Brown MD Consults: OT, PT Attending Physician on discharge: Tara Acevedo MD Date of Discharge: 10/30/22 DS: Diagnosis Discharge Diagnosis (1) Abdominal pain, vomiting, and diarrhea: Status: Acute Problem details: - resolved during stay, source unclear (2) Sinus tachycardia: Status: Acute Problem details: - also hypertensive, started on Metoprolol during stay, both pulse and BP normal upon discharge (3) Elevated uric acid in blood: Status: Acute Problem details: - started 100mg allopurinol daily (4) Elevated bilirubin: Status: Acute Problem details: - bilirubin improved during stay; rest of LFTs remained wnl (5) Metabolic encephalopathy: Status: Acute Problem details: - noted during early part of stay, resolved - source unclear, seemed to improve after removal of Fentanyl patch (6) ROSANA (acute kidney injury): Status: Acute Problem details: - improved during stay; discharge creatinine 1.2 with baseline is 1.3-1.6. (7) Hypomagnesemia: Status: Acute Problem details: - replaced and normal upon discharge (8) Weakness: Status: Acute Problem details: - followed by therapies and improved during stay DS: Summary Hospital Course Hospital Course: Patient is a 72-year-old male who is status post liver and kidney transplant who presented to the emergency room on 10/26 with weakness, vomiting, and diarrhea. His GI symptoms spontaneously resolved and he was able to tolerate a normal diet. He was seen by our therapy teams for his weakness and encephalopathy with intermittent obtundation. MOCA 25/30. His fentanyl patch was discontinued which seemed to help with his symptoms. He then returned to baseline and requested discharge home on 10/30. He'd had a Renteria catheter placed during his encephalopathic period, this was removed on day of discharge we are awaiting return of bladder function prior to discharge. His LFTs and creatinine were mildly elevated upon admission, improved to baseline upon discharge. Other comorbidities and notable findings above. Patient will see PCP next week and transplant team in 1-2 weeks. Brother updated by phone, questions answered. Status at Discharge Functional status at discharge: uses cane/walker Overall status at discharge: patient is progressing back to baseline Time Spent with Patient Time attestation: Total time spent providing and/or coordinating discharge services: Time spent: Greater than 30 minutes Specific discharge activities: Care coordination, medication reconciliation, family updates Exam Narrative: Exam Narrative: GEN: Alert and laying comfortably in bed, answering questions appropriately HEENT: EOMIs bilaterally, no scleral icterus CV: RRR, No concerning murmurs, rubs, or gallops R: LCTA bilaterally without concerning wheezing, air movement adequate Ab: soft and protuberant, no ttp Skin: No concerning skin lesions or rashes on exposed skin Neuro: Nonfocal Psych: Appropriate Const: Vital Signs, click to edit/add: Vital Signs - 24 hr 10/29/22 15:30 10/29/22 15:30 10/29/22 19:20 Temperature 98.1 F 98.2 F Pulse Rate [Pulse Oximeter] 73 72 Respiratory Rate 18 18 18 Blood Pressure [Le ft Arm] 147/65 H 139/72 Pulse Oximetry 97 97 98 [facility] Room Air 10/29/22 22:45 10/29/22 22:45 10/29/22 22:45 Temperature 98.2 F Pulse Rate [Pulse Oximeter] 63 63 Respiratory Rate 16 18 18 Blood Pressure [Le ft Arm] 138/66 Pulse Oximetry 98 98 Oxygen Delivery [facility] Room Air Room Air 10/30/22 03:05 10/30/22 07:00 10/30/22 07:00 Temperature 97.9 F Pulse Rate [Pulse Oximeter] 85 79 Respiratory Rate 16 16 16 Blood Pressure [Le ft Arm] 136/69 Pulse Oximetry 98 96 Oxygen Delivery [facility] Room Air Room Air 10/30/22 07:00 10/30/22 11:00 Temperature 98.6 F Pulse Rate [Pulse Oximeter] 79 63 Respiratory Rate 16 18 Blood Pressure [Le ft Arm] 146/70 H 118/52 L Pulse Oximetry 96 96 Oxygen [facility] Room Air DS: Data Data Completed and Pending Labs on day of discharge: Labs from last 24 hours 10/30/22 06:18 WBC 2.49 L RBC 3.46 L Hgb 11.2 L Hct 32.2 L MCV 93 MCH 32 MCHC 35 RDW Coeff of Warren 13.6 Plt Count 116 L Neut % (Auto) 64.3 Lymph % (Auto) 22.5 [place] % (Auto) 10.4 Eos % (Auto) 1.6 Baso % (Auto) 0.4 Neut # (Auto) 1.60 L Lymph # (Auto) 0.60 L [place] # (Auto) 0.30 Eos # (Auto) 0.00 Baso # (Auto) 0.00 Abs Immat Gran (auto) 0.00 Imm/Tot Granulo (auto) 0.8 Sodium 135 Potassium 3.8 Chloride 103 Carbon Dioxide 28 BUN 24 Creatinine 1.2 Estimated Creat Clear 55.42 Estimated GFR 65 Glucose 199 H Calcium 8.4 Ionized Calcium Kalia 1.18 Phosphorus 3.2 Magnesium 1.7 Iron 51 TIBC 234 L % Saturation 22 Ferritin 196.0 Total Bilirubin 1.7 H AST 19 ALT 10 Alkaline Phosphatase 51 Total Protein 5.7 L Albumin 3.3 Preliminary micro results at discharge 10/26/22 13:00 Blood Culture - Preliminary Blood NO GROWTH AFTER 96 HOURS 10/26/22 12:42 Blood Culture - Preliminary Blood NO GROWTH AFTER 96 HOURS Discharge Plan Discharge Disposition: Home, Self-Care Date of Admission: 10/26/22 18:03 Attending Provider on Discharge: Laurie De La O Primary Care Provider: Rubén Boyel Condition: Improved Anticipated Discharge Date/Time: 10/29/22 12:21 Discharge Medications: New allopurinol 100 mg Tablet 100 mg PO DAILY Qty: 30 0RF metoprolol tartrate 25 mg Tablet 25 mg PO BID Qty: 60 0RF Continued atorvastatin 20 mg tablet 20 mg PO HS Qty: 90 3RF citalopram [Celexa] 40 mg tablet 40 mg PO DAILY Qty: 90 3RF gabapentin 600 mg tablet 600 mg PO BID Qty: 180 3RF insulin aspart U-100 100 unit/mL solution 100 unit subcut DAILY Patient Comments: VIA INSULIN PUMP aspirin [Adult Aspirin Regimen] 81 mg tablet,delayed release (DR/EC) 81 mg PO DAILY azathioprine 50 mg tablet 150 mg PO DAILY tacrolimus 0.5 mg capsule 1.5 - 2 mg PO Q12H Patient Comments: takes 4 CAPS (2MG) AM and 3 CAPS (1.5MG) PM ferrous sulfate 325 mg (65 mg iron) tablet 325 mg PO DAILY furosemide 40 mg tablet 40 mg PO QAM PRN tamsulosin 0.4 mg capsule 0.4 mg PO DAILY sodium bicarbonate 650 mg tablet 1,300 mg PO BID omeprazole 20 mg capsule,delayed release(DR/EC) 40 mg PO DAILY doxazosin 2 mg tablet 4 mg PO HS cholecalciferol (vitamin D3) 25 mcg (1,000 unit) capsule 4,000 unit PO DAILY diphenoxylate-atropine [Lomotil] 2.5-0.025 mg tablet 2 tab PO TID PRN (Reason: diarrhea) Qty: 540 1RF multivitamin Tablet 1 tab PO DAILY Qty: 90 3RF oxycodone 10 mg tablet 10 mg PO TID PRN (Reason: pain) Qty: 30 0RF Patient Comments: 10 MG PO TID PRN For Severe Pain Held fentanyl 25 mcg/hr patch 72 hour 1 patch topical Q48H Hold Instructions: Resume on 11/19/22. Hold this medication until you talk with your PCP. Discharge Orders: Discharge Order (Routine); Ordered 10/30/22 Ordered By: Tara Acevedo Patient Education: Allopurinol (By mouth), Metoprolol (By mouth), Dehydration (DC), Acute Kidney Injury (DC) Additional Instructions: 1. Please take your blood sugar regularly and keep track of your numbers. When you don't eat your blood sugar can be overcorrected with the amount of insulin you are on. 2. I would like you to hold your fentanyl patch for the next week or two and see how this affects your energy. Discuss with your physician at the follow-up appt. 3. I'm sending you home with a new heart rate control medication that also treats high blood pressure and a new medication to prevent gout. 4. On Sunday 10/29 you had a low magnesium and this was replaced. I'd like your physician recheck your kidneys, bilirubin/liver check and magnesium at next appt. Activity Level: Activity as Tolerated, No strenuous activity and Light activity Discharge Diet: Regular Follow Up Appointments: Rubén Boyle MD [Primary Care Provider] - 11/05/22 (Needs appt with Dr. Boyle next week. Also needs to be seen by Transplant team in 1-2 weeks for recheck) Forms: [employer] Info Instructions
--- NOTE | 2022-10-30 15:10 | PC.NURSE ---
Nursing Care Hours: [id number] Pt this shift anxious to go home to dog. Frustrated with having to wait on blood lab results and having to wait to void after Renteria removed. Renteria removed at 1030, some resistance when removing and scant blood clot noted in catheter tip and in bag. Encouraged to drink fluids. Took in 960ml and post void still pending at this time. Bladder scanned at 1400 showing 64ml. Attempt to void x2 with no results. 250ml bolus given, tolerated well. Loose BM x2. Eating full meals for breakfast and lunch. 1+ pitting edema bilat legs. LS clear. VSS. C/o posterior headache. Miner Helper asked about caffeine intake, and diet coke offered. Pt alert and oriented all shift, started napping around 1430 but easily awakes.
[2022-10-30 15:30] VITALS: BP 133/64; PULSE 67; RESP 16; TEMP 36.4; O2SAT 98
--- NOTE | 2022-10-30 19:12 | PC.NURSE ---
Pt alert and oriented. Pt cooperative and pleasant. Pt had no complaints of pain during shift (15-19). Pt SBA with walker. Pt?s khanna was removed and we awaited the first void after removal; at 1750 Pt voided a significant amount but was in pad and on floor. Pt?s brother was called to pecan picker Pt. Pt?s brother stated he would be here in 45 minuets. Around 1840. Pt to be brought down to ER entrance at 1845. ? ?
--- NOTE | 2022-10-30 19:20 | PC.NURSE ---
Addendum entered by Juanita Hi RN 10/31/22 09:42: Pt's brother asked if he could remove IV himself. RN instructed Pt's brother not to remove IV and to bring Pt to nearest ED. Original Note: Pt left with out IV being removed. RN called brother and asked to return with Pt to remove IV. Brother/ Pt refused to return to remove IV. RN advised Pt/brother to go to nearest ER to have IV removed.
--- NOTE | 2022-10-31 10:50 | PC.NURSE ---
Follow up call. RN called Pt to check on removal of IV status to see if Pt wanted to come back to [facility] or if Pt went to ED in [place]. Pt indicated that IV was removed by him without issue.?
--- NOTE | 2022-11-05 13:02 | P.IMPN_ITS ---
Subjective Date Seen: 10/29/22 Interval history: Daily Progress Note - Hospital Medici Date Seen: 10/29/22 Interval history: Daily Progress Note - Hospital Medicine Day #: 4 CC: abdominal pain, weakness, AMS Patient was admitted through the emergency room 2 nights ago with abdominal pain/diarrhea/vomiting, progressive weakness and poor self-care over the last 2 weeks worsening in the last 5 days, importantly noting his history of liver and renal transplants several years ago as well as hx of cholecystectomy. working dx: acute dehydration from AGE resulting in weakness and encephalopathy. On presentation he had 4+ ketones, was tachy and acidotic. Acute issues remain: Tachycardia, heart rate between 110 and 114, acute mental status change - slight improvement. weakness, mild bump in his troponin. teasing out poor med compliance. new urinary retention. He is currently not on antibiotics, pressors. on NS (was on D5 1st night). Blood sugars are improved from admission. Were holding his scheduled insulin and only using a sliding scale as his appetite has been quite poor. OVERNIGHT UPDATES FROM STAFF & MED, LAB, IMAGING UPDATES This morning he attempted his breakfast tray and only after a few bites he felt increasing abdominal pressure and pain. I am adding a lipase, blood gas, CRP, G GT to his labs this morning. His elevated bilirubin is about the same. Keeping in mind he has had a cholecystectomy. His lipase was normal on admission. He has got good bowel sounds. His initial CT was without contrast because of his renal function. However there was no acute findings. Afebrile Blood pressure 164/82 Pulse 78 Respirations 20 Pulse ox 98% on room air 99.29 kilos WBC count 2.55, hemoglobin 12.2, platelet count 126. No new blood gas drawn today. Most electrolytes are now all normal. Creatinine is 1.2. However, magnesium had actually dropped to 1.0. Creatinine is elevated but essentially plateaued No new imaging Objective: Lethargic, slow to respond. Flat affect. Vitals: see above Lungs: Clear. Abdomen: Obese, no guarding. Cardiac: S1S2. Neuro: Generalized weakness without lateralizing signs. Able to cross at the ankles however weak generally in lifting his legs against gravity. Assessment and plan (1) Metabolic encephalopathy: Problem details: This is part of the constellation of constitutional symptoms patient is experiencing at this time. This is possibly primary problem. Removing the fentanyl patch seems to have helped. Patient is improved this morning. Status: Acute (2) Abdominal pain, vomiting, and diarrhea: Problem details: -viral - maybe? Bowel obstruction - no. opioid withdrawal - unlikely. transplant rejection - unlikely. -CDIFF not sent as stooling has been quiescent -no fever -dehydration resolving -khanna placed -encourage nutrition, stop D5 Status: Acute (3) Weakness: Problem details: Profound weakness to the point he is no longer able to care for himself. 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 Continue anti rejection drugs and consult hepatic transplant team if not rapidly improving LFTs are stone cold normal. Bilirubin is just mildly elevated. This is lower on my list of concerns. Status: Acute (5) Type 2 diabetes mellitus treated with insulin: Problem details: A1C 6.3; not eating well. will hold insulin except for SSI as needed. Status: Acute (6) Sinus tachycardia: Problem details: Unclear. Stable. Hypertensive. staring metoprolol tartrate 25mg bid. Status: Acute (7) Elevated uric acid in blood: Problem details: starting 100mg allopurinol daily Status: Acute (8) Metabolic acidosis: Problem details: Much improved. Renal function is returning to his baseline. PH is normal. Status: Acute (9) ROSANA (acute kidney injury): Problem details: Much improved. His baseline is 1.3-1.6. Status: Acute Disposition/Potential discharge - Likely to return to previous living situation. Total time is 35 minutes with greater than 50% spent in counseling and coordination of care. Exam Const: Vital Signs, click to edit/add: Vital Signs - 24 hr 11/04/22 17:37 11/04/22 18:10 11/04/22 18:10 Temperature 97.8 F Pulse Rate 77 Pulse Rate [Right Pulse Oximeter] 74 Respiratory Rate 18 18 Blood Pressure Blood Pressure [Le ft Arm] 146/64 H Pulse Oximetry 94 96 Oxygen Delivery Me thod Room Air Room Air 11/04/22 19:00 11/04/22 23:00 11/04/22 23:00 Temperature 98.4 F Pulse Rate 71 Pulse Rate [Right Pulse Oximeter] 77 Respiratory Rate 18 12 Blood Pressure Blood Pressure [Le ft Arm] 145/59 H Pulse Oximetry 94 Oxygen Delivery Me thod Room Air 11/04/22 23:00 11/04/22 23:00 11/05/22 03:00 Temperature 98.4 F 98.2 F Pulse Rate Pulse Rate [Right Pulse Oximeter] 73 73 Respiratory Rate 18 18 18 Blood Pressure Blood Pressure [Le ft Arm] 122/60 166/81 H Pulse Oximetry 94 94 94 Oxygen Delivery Me thod Room Air Room Air Room Air 11/05/22 08:22 11/05/22 09:22 11/05/22 11:55 Temperature 98.3 F 98.3 F 98.2 F Pulse Rate 71 Pulse Rate [Right Pulse Oximeter] 72 72 Respiratory Rate 16 16 18 Blood Pressure 126/65 Blood Pressure [Le ft Arm] 146/59 H 154/79 H Pulse Oximetry 97 96 Oxygen Delivery Me thod Room Air Room Air Labs Labs: Laboratory Results - last 24 hr 11/04/22 11/05/22 13:05 06:04 WBC 2.51 L RBC 2.83 L Hgb 9.2 L Hct 26.4 L MCV 93 MCH 33 MCHC 35 RDW Coeff of [place] 13.8 Plt Count 59 L Neut % (Auto) 70.9 Lymph % (Auto) 15.1 L [place] % (Auto) 7.2 Eos % (Auto) 3.2 Baso % (Auto) 0.4 Neut # (Auto) 1.80 Lymph # (Auto) 0.40 L [place] # (Auto) 0.20 Eos # (Auto) 0.10 Baso # (Auto) 0.00 Abs Immat Gran (auto) 0.10 Imm/Tot Granulo (auto) 3.2 Diff Slide Review Acceptable Review VBG pH 7.443 H VBG pCO2 46 VBG pO2 47.2 H VBG HCO3 32 H Sodium 136 Potassium 3.8 Chloride 99 Carbon Dioxide 33 H BUN 15 Creatinine 1.1 Estimated Creat Clear 64.52 Estimated GFR 72 Glucose 179 H Calcium 8.5 Total Bilirubin 1.1 AST 43 H ALT 46 Alkaline Phosphatase 49 Total Creatine Kinase 475 H Total Protein 5.6 L Albumin 3.0 L
== END 2022-10-30 18:45 | disposition home or self-care (01) | DRG 71 ==
LOC: ED 15:24 → MEDSURG 16:08
PROVIDERS: Family Medicine; Admitting Provider Family Medicine; Emergency Provider Family Medicine; PCP Family Medicine; Visit Provider Family Medicine
DX: G93.41 Metabolic encephalopathy (principal); E87.20 Acidosis, unspecified; Z94.4 Liver transplant status; Z94.0 Kidney transplant status; N17.9 Acute kidney failure, unspecified; I13.0 Hypertensive heart and chronic kidney disease with heart failure and stage 1 through stage 4 chronic kidney disease, or unspecified chronic kidney disease; K92.0 Hematemesis; R10.9 Unspecified abdominal pain; R53.1 Weakness; R19.7 Diarrhea, unspecified; E83.42 Hypomagnesemia; E86.0 Dehydration; E87.5 Hyperkalemia; Z79.891 Long term (current) use of opiate analgesic; I50.9 Heart failure, unspecified; K21.9 Gastro-esophageal reflux disease without esophagitis; F10.21 Alcohol dependence, in remission; E11.65 Type 2 diabetes mellitus with hyperglycemia; E11.22 Type 2 diabetes mellitus with diabetic chronic kidney disease; E11.40 Type 2 diabetes mellitus with diabetic neuropathy, unspecified; N18.9 Chronic kidney disease, unspecified; Z79.4 Long term (current) use of insulin; I25.2 Old myocardial infarction; R00.0 Tachycardia, unspecified; G89.29 Other chronic pain; Z95.2 Presence of prosthetic heart valve; Z95.5 Presence of coronary angioplasty implant and graft; N40.1 Benign prostatic hyperplasia with lower urinary tract symptoms; R33.8 Other retention of urine
CPT/HCPCS: 36415; 51701; 51798; 70450; 71045; 74019; 74176; 80048; 80053; 80076; 80306; 81001; 81003; 82077; 82140; 82270; 82330; 82728; 82803; 82962; 82977; 83036; 83540; 83550; 83605; 83690; 83735; 83880; 84100; 84145; 84439; 84443; 84484; 84550; 85025; 85027; 85379; 86140; 87040; 87045; 87046; 87086; 87427; 87493; 87635; 93005; 93306; 94761; 97110; 97116; 97162; 97166; 97530; 97535; 99285; A9153; A9270; C9113; J1940; J2270; J2405; J3475; J7030; J7042; J7050; J7120; J7500; J7507

== ENCOUNTER 2022-11-01 20:25 | Inpatient (IN) | payer MEDICARE, BC, SELFPAY ==
--- NOTE | 2022-11-01 20:27 | ED_ITS ---
HPI - General Adult General Time Seen by Provider: 20:27 Date Seen: 11/01/22 Chief complaint: Weakness Stated complaint: Weakness Time Seen by Provider: 11/01/22 20:27 Source: patient, RN notes reviewed and old records reviewed Mode of arrival: EMS Limitations: no limitations History of Present Illness HPI narrative: Lito is a 72-year-old male who is status post liver and kidney transplant as well as having a recent history of ROSANA presents to the [facility] via EMS with complaints of weakness. Patient was noted to have been recently hospitalized and discharged on 10/30 or 2 days ago. He states that he was doing well initially and then last night after he had gotten up to use the restroom he tripped over some shoes. He states that he fell on his right side. He notes that he hit a dresser. According to EMS he has sustain injury to his right chest. Lito agrees that he hit his head and that his neck is sore from laying up against the wall. He states that he was unable to call 911 and was there for approximately 8 hours until found by his cousins earlier today about noon. I am not exactly sure of this time line. Tonight he states he was very weak and called 911. He notes that he has had continued diarrhea but has been able to make it to the bathroom except for a few accidents. He has not had any nausea or vomiting. He does not have any belly pain. He notes no chest pain shortness of breath or fever. EMS placed an IV and started fluids. Initially he states he has no pain while he is at rest. Patient was noted to have been discharged from [facility] on 10/30/22 after a 5 day stay. He initially presented with N/V/D, tachycardia, low magnesium. His GI symptoms spontaneously resolved and he was able to tolerate a normal diet. He was seen by our therapy teams for his weakness and encephalopathy with intermittent obtundation. MOCA 25/30. His fentanyl patch was discontinued which seemed to help with his symptoms. He requested discharge home on 10/30. Related Data Home Medications Medication Instructions Recorded Confirmed aspirin 81 mg tablet,delayed 81 mg PO DAILY 10/22/21 11/01/22 release (Adult Aspirin Regimen) azathioprine 50 mg tablet 150 mg PO DAILY 10/22/21 11/01/22 insulin aspart U-100 100 unit/mL 100 unit subcut DAILY 04/22/22 11/01/22 subcutaneous solution tacrolimus 0.5 mg capsule, 1.5 - 2 mg PO Q12H 05/17/22 11/01/22 immediate-release cholecalciferol (vitamin D3) 25 4,000 unit PO DAILY 10/26/22 11/01/22 mcg (1,000 unit) capsule doxazosin 2 mg tablet 4 mg PO HS 10/26/22 11/01/22 ferrous sulfate 325 mg (65 mg 325 mg PO DAILY 10/26/22 11/01/22 iron) tablet furosemide 40 mg tablet 40 mg PO QAM PRN 10/26/22 11/01/22 omeprazole 20 mg capsule,delayed 40 mg PO DAILY 10/26/22 11/01/22 release sodium bicarbonate 650 mg tablet 1,300 mg PO BID 10/26/22 11/01/22 tamsulosin 0.4 mg capsule 0.4 mg PO DAILY 10/26/22 11/01/22 clopidogrel 75 mg tablet 75 mg PO DAILY 11/01/22 11/01/22 Previous Rx's Medication Instructions Recorded atorvastatin 20 mg tablet 20 mg PO HS #90 tabs 11/09/21 citalopram 40 mg tablet (Celexa) 40 mg PO DAILY #90 tabs 11/09/21 gabapentin 600 mg tablet 600 mg PO BID #180 tabs 11/09/21 diphenoxylate-atropine 2.5 2 tab PO TID PRN diarrhea #540 tabs 01/26/22 mg-0.025 mg tablet (Lomotil) multivitamin 1 tab PO DAILY #90 tabs 08/10/22 oxycodone 10 mg tablet 10 mg PO TID PRN pain #30 tabs 09/14/22 allopurinol 100 mg tablet 100 mg PO DAILY #30 tabs 10/29/22 metoprolol tartrate 25 mg tablet 25 mg PO BID #60 tabs 10/29/22 Allergies Allergy/AdvReac Type Severity Reaction Status Date / Time phytonadione (vitamin K1) Allergy Intermediate Unknown Verified 10/30/22 13:43 Review of Systems Status of ROS: Reports: 10 or more systems reviewed and unremarkable except as noted in History and below Const: Denies: fever or chills Eyes: Denies: change in vision ENMT: Reports: neck pain (When turning head); Denies: difficulty swallowing or hoarseness Cardio: Denies: chest pain, swelling of feet/ankles, lightheadedness or shortness of breath with exertion Resp: Denies: shortness of breath or cough GI: Reports: diarrhea (Chronic but much improved from previous visit); Denies: abdominal pain, nausea, vomiting or difficulty swallowing : Denies: painful urination Musculo: Reports: neck pain (When turning head); Denies: back pain, extremity pain or extremity swelling Integ/Breast: Reports: sores Neuro: Reports: weakness in extremities; Denies: headache or numbness in extremities [facility] Medical History Elevated bilirubin ?R17 - Unspecified jaundice (ICD-10) Metabolic encephalopathy ?G93.41 - Metabolic encephalopathy (ICD-10) Low back pain ?M54.50 - Low back pain, unspecified (ICD-10) Vitamin D deficiency ?E55.9 - Vitamin D deficiency, unspecified (ICD-10) Type 2 diabetes mellitus treated with insulin ?E11.9 - Type 2 diabetes mellitus without complications (ICD-10) ?Z79.4 - senior living (current) use of insulin (ICD-10) History of transcatheter aortic valve replacement (TAVR) ?Z95.2 - Presence of prosthetic heart valve (ICD-10) BPH (benign prostatic hyperplasia) ?N40.0 - Benign prostatic hyperplasia without lower urinary tract symptoms (ICD-10) History of non-anemic folic acid deficiency ?Z86.39 - Personal history of other endocrine, nutritional and metabolic disease (ICD-10) History of colonic polyps (05/10/13) ?Z86.010 - Personal history of colonic polyps (ICD-10) Folic acid deficiency (01/22/16) ?E53.8 - Deficiency of other specified B group vitamins (ICD-10) Erectile dysfunction ?N52.9 - Male erectile dysfunction, unspecified (ICD-10) Current moderate episode of major depressive disorder without prior episode (01/14/17) ?F32.1 - Major depressive disorder, single episode, moderate (ICD-10) Controlled substance agreement signed (04/19/18) ?Z79.899 - Other longterm (current) drug therapy (ICD-10) C. difficile diarrhea ?A04.72 - Enterocolitis due to Clostridium difficile, not specified as recurrent (ICD-10) Pancytopenia ?D61.818 - Other pancytopenia (ICD-10) Non-STEMI (non-ST elevated myocardial infarction) ?I21.4 - Non-ST elevation (NSTEMI) myocardial infarction (ICD-10) Pain syndrome, chronic ?G89.4 - Chronic pain syndrome (ICD-10) Chronic kidney disease (CKD) ?N18.9 - Chronic kidney disease, unspecified (ICD-10) History of ETOH abuse ?F10.11 - Alcohol abuse, in remission (ICD-10) CHF (congestive heart failure) ?I50.9 - Heart failure, unspecified (ICD-10) Mitral regurgitation ?I34.0 - Nonrheumatic mitral (valve) insufficiency (ICD-10) Diabetic neuropathy ?E11.40 - Type 2 diabetes mellitus with diabetic neuropathy, unspecified (ICD-10) GERD (gastroesophageal reflux disease) ?K21.9 - Gastro-esophageal reflux disease without esophagitis (ICD-10) Hyperlipidemia ?E78.5 - Hyperlipidemia, unspecified (ICD-10) HTN (hypertension) ?I10 - Essential (primary) hypertension (ICD-10) Diverticulosis ?K57.90 - Diverticulosis of intestine, part unspecified, without perforation or abscess without bleeding (ICD-10) Surgical History History of coronary artery stent placement ?Z95.5 - Presence of coronary angioplasty implant and graft (ICD-10) S/P TAVR (transcatheter aortic valve replacement) ?Z95.2 - Presence of prosthetic heart valve (ICD-10) History of liver transplant (07/10/16) ?Z94.4 - Liver transplant status (ICD-10) History of decompression of ulnar nerve (1979) ?Z98.890 - Other specified postprocedural states (ICD-10) History of cataract extraction (2017) ?Z98.49 - Cataract extraction status, unspecified eye (ICD-10) 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 He lives by himself. He functions independently. He is retired. Remote history of smoking having quit about 20 years ago after a 10 pack year history. 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 Last drank in 2016 What is your current living situation?: I presently have a place to live Problems where you live: no known problems Problems where you live details: None per pt report In the past 12 months, utilities in danger of being shut off: no In the past 12 mos, have been you worried that your food would run out before you had money to buy more?: never true In the past 12 mos, the food you bought just didn't last and you didn't have money to buy more?: never true Highest level of school completed/degree received: some college, no degree Smoking Status: Former smoker Do you use any of these nicotine containing products: None Second hand tobacco smoke exposure: No How often do you have a drink containing alcohol: never How often do you have six or more drinks on one occasion: Never AUDIT-C Alcohol total score: 0 Non-prescribed substance use: denies use Caffeine: Yes (2 12oz bottles daily) How often does anyone, including family, friends and others, physically hurt you : never How often does anyone, including family, friends and others, insult or talk down to you: never How often does anyone, including family, friends and others, threaten you with harm: never How often does anyone, including family, friends and others, scream or curse at you: never Little interest or pleasure in doing things: more than half the days Feeling down, depressed, or hopeless: more than half the days service: No Exam Narrative: Exam Narrative: Alert and oriented. Conversive. Mild bruising noted along right gnosticism and lateral cheek bone. No crepitus. Head is otherwise atraumatic. Neck with some discomfort with the right paraspinous musculature. Discomfort with rotation. Heart with regular rate and rhythm. Lungs are clear bilaterally. Patient has linear erythematous xiomara on right upper chest wall. He has a plum size area of open sore/skin abrasion right above the right nipple. He also has multiple open lesions on his abdomen. Moving his pannus shows erythema out with some drainage smells strongly of yeast. Lower extremities with skin changes consistent with venous stasis. Palpation of thoracic and lumbar spine without pain. Const: Vital Signs, click to edit/add: Vital Signs - 24 hr 11/01/22 20:35 11/01/22 23:10 11/01/22 23:15 Temperature 98.5 F Pulse Rate 77 79 Pulse Rate [Right Pulse Oximeter] 86 Respiratory Rate 18 Blood Pressure Blood Pressure [Ri ght Upper Arm] 145/101 H Pulse Oximetry 99 97 99 Oxygen Delivery Me thod Room Air 11/01/22 23:30 11/01/22 23:40 11/01/22 23:45 Temperature Pulse Rate 77 76 75 Pulse Rate [Right Pulse Oximeter] Respiratory Rate Blood Pressure 139/66 Blood Pressure [Ri ght Upper Arm] Pulse Oximetry 98 99 98 Oxygen Delivery Me thod 11/02/22 00:00 Temperature Pulse Rate 92 Pulse Rate [Right Pulse Oximeter] Respiratory Rate Blood Pressure Blood Pressure [Ri ght Upper Arm] Pulse Oximetry 99 Oxygen Delivery Me thod Documenting provider has reviewed patient's vital signs: yes Course Course Hospital Course: At this time patient is very weak, has neck pain, new sores on the abdomen and bruising of the chest wall. Will have patient undergo head and cervical spine CT, laboratory values to include troponin, CBC, CK, comprehensive panel, CRP, urinalysis. Will have a chest x-ray and EKG done as well. Will give 1 L of normal saline. Reevaluation(s) Reevaluation #1: Magnesium markedly low at 1.2. 2 g magnesium IV is given. This is in the setting of a creatinine of 1.6. Troponin mildly elevated at 0.05. This was consistent with previous value. Vital Signs Vital signs: Initial Vital Signs Temperature 98.5 F 11/01/22 20:35 Temperature Source Temporal Artery Scan 11/01/22 20:35 Pulse Rate 86 11/01/22 20:35 Respiratory Rate 18 11/01/22 20:35 Blood Pressure 145/101 H 11/01/22 20:35 Blood Pressure Mean 115 H 11/01/22 20:35 Blood Pressure Position Supine 11/01/22 20:35 Pulse Oximetry 99 11/01/22 20:35 Oxygen Delivery Method Room Air 11/01/22 20:35 Vital Signs Temperature 98.5 F 11/01/22 20:35 Pulse Rate 86 11/01/22 20:35 Respiratory Rate 18 11/01/22 20:35 Blood Pressure 145/101 H 11/01/22 20:35 Pulse Oximetry 99 11/01/22 20:35 Oxygen Delivery Method Room Air 11/01/22 20:35 Temperature 98.5 F 11/01/22 20:35 Pulse Rate 92 11/02/22 00:00 Respiratory Rate 18 11/01/22 20:35 Blood Pressure 139/66 11/01/22 23:40 Pulse Oximetry 99 11/02/22 00:00 Oxygen Delivery Method Room Air 11/01/22 20:35 Medical Decision Making MDM Narrative Medical decision making narrative: 1. Rhabdomyolysis-patient noted to be sitting on the floor for 8 hours. Bruises noted to right side of his chest. Fortunately no evidence of a underlying rib fracture. Patient is given 1 L normal saline. Will continue with maintenance after speaking to hospitalist. Renteria is placed for accurate input and output measurement. Potassium normal at this time. If creatinine begins rising this patient likely will need transfer to outside facility tertiary care. 2.HYpomagnesemia-this appears to be a consistent problem. Today's magnesium is 1.2. Departure magnesium on 10/30 was 1.7. 2 g IV magnesium given. 3. Elevated LFTs. Not noted previously. Patient really has no tenderness in this area. AST of 202 ALT of 56. Patient noted to have history of alcohol abuse but alcohol tonight is negative. Alk-phos within normal limits. No vomiting or diarrhea tonight. 4. Elevated troponin-initial troponin 0.05 and subsequent 0.06 with reassuring EKGs. This was also noted during previous visit. 5. Anemia with a hemoglobin of 10.7. Previous value 11.2 on 10/30. 6. Chronic renal insufficiency with a creatinine of 1.6. However prior to discharge creatinine is was within normal limits. 7. Fungal dermatitis. Patient has significant erythema and yeast smelling discharge under his pannus. He now has many areas of skin breakdown on his abdomen. My initial thought that this was a possible impetigo type picture but our hospitalist felt that this was more consistent with fungal infection. 8. Disposition- admit to [facility] under the care of of Charli hospitalist. We spoke of elevated CK with fluids given, elevated troponin with reassuring EKG, low magnesium with IV replacement, elevated liver function test with normal alcohol level, history of anemia and the abdominal and chest lesions thought to be related to fungal source. At this time we do speak also about the use of IV antibiotic ceftriaxone as well as topical antifungals. Upon further thought however patient does have a history of C diff and therefore will use topical Bactroban in combination with topical nystatin to the lesions. Will conveyed this to the nurse on the floor as to let the [facility] hospitalist know this. Medical Records Medical records reviewed: Yes I reviewed the patient's medical records Lab Data Lab results reviewed: Yes I reviewed the patient's lab results Labs: Lab Results 11/01/22 11/01/22 11/01/22 Range/Units 20:55 20:56 21:14 WBC 5.39 (4.50-11.00) K/uL RBC 3.25 L (4.30-5.90) m/uL Hgb 10.7 L (13.5-17.5) gm/dL Hct 29.9 L (37.0-53.0) % MCV 92 (80-100) fL MCH 33 (26-34) pg MCHC 36 (32-36) gm/dL RDW Coeff of Warren 13.9 (11.5-15.5) % Plt Count 114 L (140-440) K/uL Neut % (Auto) 87.2 H (42.0-72.0) % Lymph % (Auto) 4.5 L (20-44) % Angelina % (Auto) 7.4 (0.0-11.0) % Eos % (Auto) 0.0 (0.0-7.0) % Baso % (Auto) 0.0 (0.0-3.0) % Neut # (Auto) 4.70 (1.7-7.0) K/uL Lymph # (Auto) 0.20 L (0.90-2.90) K/uL Angelina # (Auto) 0.40 (0.00-0.90) K/UL Eos # (Auto) 0.00 (0.00-0.50) K/uL Baso # (Auto) 0.00 (0.00-0.30) K/uL Abs Immat Gran (auto) 0.05 (0.00-0.30) K/uL Imm/Tot Granulo (auto) 0.9 % Sodium 133 L (135-149) mmol/L Potassium 3.5 L (3.6-5.1) mmol/L Chloride 102 (96-114) mmol/L Carbon Dioxide 21 (20-32) mmol/L BUN 33 H (7-30) mg/dL Creatinine 1.6 H (0.5-1.5) mg/dL Estimated Creat Clear 42.96 Estimated GFR 46 ml/min Glucose 216 H (60-115) mg/dL Calcium 8.2 L (8.4-10.6) mg/dL Magnesium 1.2 L (1.5-2.6) mg/dL Total Bilirubin 2.9 H (0.1-1.5) mg/dL AST 202 H (12-35) U/L ALT 56 H (4-50) U/L Alkaline Phosphatase 51 (40-150) U/L Total Creatine Kinase 92574 H (54-186) U/L C-Reactive Protein 22.6 H (0.5-1.0) mg/dL Total Protein 6.2 (6.0-8.3) g/dL Albumin 3.5 (3.3-5.0) g/dL Ethyl Alcohol < 0.01 L (0.01-0.03) % Lab Acknowledgement Test Added POC Troponin I 0.05 H (0.01-0.04) ng/ml 11/01/22 11/01/22 Range/Units 22:00 23:30 WBC (4.50-11.00) K/uL RBC (4.30-5.90) m/uL Hgb (13.5-17.5) gm/dL Hct (37.0-53.0) % MCV (80-100) fL MCH (26-34) pg MCHC (32-36) gm/dL RDW Coeff of Warren (11.5-15.5) % Plt Count (140-440) K/uL Neut % (Auto) (42.0-72.0) % Lymph % (Auto) (20-44) % Angelina % (Auto) (0.0-11.0) % Eos % (Auto) (0.0-7.0) % Baso % (Auto) (0.0-3.0) % Neut # (Auto) (1.7-7.0) K/uL Lymph # (Auto) (0.90-2.90) K/uL Angelina # (Auto) (0.00-0.90) K/UL Eos # (Auto) (0.00-0.50) K/uL Baso # (Auto) (0.00-0.30) K/uL Abs Immat Gran (auto) (0.00-0.30) K/uL Imm/Tot Granulo (auto) % Sodium (135-149) mmol/L Potassium (3.6-5.1) mmol/L Chloride (96-114) mmol/L Carbon Dioxide (20-32) mmol/L BUN (7-30) mg/dL Creatinine (0.5-1.5) mg/dL Estimated Creat Clear Estimated GFR ml/min Glucose (60-115) mg/dL Calcium (8.4-10.6) mg/dL Magnesium (1.5-2.6) mg/dL Total Bilirubin (0.1-1.5) mg/dL AST (12-35) U/L ALT (4-50) U/L Alkaline Phosphatase (40-150) U/L Total Creatine Kinase (54-186) U/L C-Reactive Protein (0.5-1.0) mg/dL Total Protein (6.0-8.3) g/dL Albumin (3.3-5.0) g/dL Ethyl Alcohol (0.01-0.03) % Lab Acknowledgement Test Added POC Troponin I 0.06 H (0.01-0.04) ng/ml Imaging Data Chest x-ray: Attestation: I have reviewed the pertinent imaging results. My impression: I do not note any acute findings Radiologist's impression: Cardiovascular and mediastinum: Heart size and vasculature are normal in caliber and appearance. Mediastinum is within normal limits. Lungs and pleural space: Lungs are clear. No sign of infiltrate or mass. No sign of pleural effusion. No pneumothorax. Bones and soft tissues: No significant findings. IMPRESSION: Lungs are clear CT scan - head: Attestation: I have reviewed the pertinent imaging results. My impression: Unchanged from previous Radiologist's impression: CSF spaces: Proportionate prominence of the ventricles and sulci, reflecting mild to moderate generalized cerebral volume loss. Brain parenchyma: Patchy white matter low attenuation changes, nonspecific but likely reflecting chronic small vessel ischemic disease. No sign of mass, hemorrhage, or midline shift. Atherosclerotic calcifications of the cavernous carotids and carotid siphons. Skull base and calvarium: The visualized paranasal sinuses and mastoid air cells demonstrate no acute or significant findings. The visualized orbits are grossly unremarkable. No skull fractures. IMPRESSION: No acute intracranial abnormality. Cervical spine CT: Attestation: I have reviewed the pertinent imaging results. Radiologist's impression: Discs and facet joints: There are diffuse degenerative changes in the disc spaces and facet joints. Extraspinal findings: Paraspinous soft tissues are unremarkable. IMPRESSION: 1. No acute fracture or traumatic subluxation of the cervical spine. 2. Multilevel degenerative spondylosis. ECG Data Attestation: I personally reviewed and interpreted this ECG as follows: Interpretation: EKG by my read shows sinus rhythm at a rate of 76. T-wave flattening throughout. No other acute ST or T-wave changes noted. EKG 2. By my read shows sinus rhythm at a rate of 79. Occasional PAC. Largely unchanged from previous. Critical Care Time Critical Care Time Critical Care Time: Yes Attestation: The patient required my highest level preparedness to intervene emergently and I personally spent this critical care time directly and personally managing the patient. This critical care time included: Obtaining a history; Examining the patient; Pulse oximetry; Ordering and reviewing of studies; Arranging urgent treatment with development of a management plan; Evaluation of patients response to treatment; Frequent reassessment discussions with other providers. This critical care time was performed to assess and manage the high probability of imminent life-threatening deterioration that could result in multiorgan failure. It was exclusive of separate billable procedures and treating other patients and teaching time. Total Critical Care Time in Minutes: 30 Discharge Plan Discharge Clinical Impression: Hypomagnesemia, Fungal dermatitis Rhabdomyolysis Qualifiers: Rhabdomyolysis type: traumatic Encounter type: initial encounter Qualified Code(s): T79.6XXA - Traumatic ischemia of muscle, initial encounter Patient Disposition: Admitted As Observation Condition: Unchanged
[2022-11-01 20:35] VITALS: BP 145/101; PULSE 86; RESP 18; TEMP 36.9; O2SAT 99; BMI 34.3
--- NOTE | 2022-11-01 20:49 | CRLHL7_ITS ---
For Patients: As a result of the Century Cures Act, medical imaging exams and procedure reports are released immediately into your electronic medical record. You may view this report before your referring provider. If you have questions, please contact your health care provider. INDICATION: WEAKNESS INDICATION: Weakness. TECHNIQUE: Chest 1 view. COMPARISON: 10/27/2022. FINDINGS: Cardiovascular and mediastinum: Heart size and vasculature are normal in caliber and appearance. Mediastinum is within normal limits. Lungs and pleural space: Lungs are clear. No sign of infiltrate or mass. No sign of pleural effusion. No pneumothorax. Bones and soft tissues: No significant findings. IMPRESSION: Lungs are clear. Dictated by Hitesh Fraser MD @ 11/01/2022 11:54:41 PM Dictated by: Hitesh Fraser MD @ 11/01/2022 23:54:49 (Electronically Signed)
--- NOTE | 2022-11-01 20:49 | CRLHL7_ITS ---
For Patients: As a result of the Cures Act, medical imaging exams and procedure reports are released immediately into your electronic medical record. You may view this report before your referring provider. If you have questions, please contact your health care provider. INDICATION: Weakness, fall. TECHNIQUE: CT cervical spine without contrast. COMPARISON: None. FINDINGS: Vertebrae: Grade 1 degenerative anterolisthesis C7 on T1 measuring 4 mm. There are no fractures or suspicious bony lesions. Discs and facet joints: There are diffuse degenerative changes in the disc spaces and facet joints. Extraspinal findings: Paraspinous soft tissues are unremarkable. IMPRESSION: 1. No acute fracture or traumatic subluxation of the cervical spine. 2. Multilevel degenerative spondylosis. Please note that all CT scans at this facility use dose modulation, iterative reconstruction, and/or weight-based dosing when appropriate to reduce radiation dose to as low as reasonably achievable. Dictated by Ed Staton MD @ 11/02/2022 12:09:14 AM (Electronically Signed)
--- NOTE | 2022-11-01 20:49 | CRLHL7_ITS ---
For Patients: As a result of the Century Cures Act, medical imaging exams and procedure reports are released immediately into your electronic medical record. You may view this report before your referring provider. If you have questions, please contact your health care provider. INDICATION: Weakness, fall. TECHNIQUE: Head CT without contrast. COMPARISON: 10/26/2022. FINDINGS: CSF spaces: Proportionate prominence of the ventricles and sulci, reflecting mild to moderate generalized cerebral volume loss. Brain parenchyma: Patchy white matter low attenuation changes, nonspecific but likely reflecting chronic small vessel ischemic disease. No sign of mass, hemorrhage, or midline shift. Atherosclerotic calcifications of the cavernous carotids and carotid siphons. Skull base and calvarium: The visualized paranasal sinuses and mastoid air cells demonstrate no acute or significant findings. The visualized orbits are grossly unremarkable. No skull fractures. IMPRESSION: No acute intracranial abnormality. Please note that all CT scans at this facility use dose modulation, iterative reconstruction, and/or weight-based dosing when appropriate to reduce radiation dose to as low as reasonably achievable. Dictated by Ed Staton MD @ 11/02/2022 12:07:04 AM (Electronically Signed)
[2022-11-01 21:22] LABS: Hematocrit 29.9 % (37.0-53.0); Hemoglobin* 10.7 gm/dL (13.5-17.5); Immature Granulocytes Abs Auto 0.05 K/uL (0.00-0.30); Immature Granulocytes Pct Auto 0.9 %; Lymphocytes Percent Auto 4.5 % (20-44); Mean Corpuscular HGB Conc 36 gm/dL (32-36); Mean Corpuscular Hemoglobin 33 pg (26-34); Mean Corpuscular Volume 92 fL (80-100); Monocytes Percent Auto 7.4 % (0.0-11.0); Neutrophils Percent Auto 87.2 % (42.0-72.0); Platelet Count* 114 K/uL (140-440); RDW Coefficient of Variation % 13.9 % (11.5-15.5); Red Blood Count 3.25 m/uL (4.30-5.90); White Blood Count* 5.39 K/uL (4.50-11.00)
[2022-11-01 21:24] LABS: Slide Review Reflex No
[2022-11-01 21:30] LABS: Troponin, Point-of-Care* 0.05 ng/ml (0.01-0.04)
[2022-11-01 21:34] LABS: Albumin* 3.5 g/dL (3.3-5.0); Chloride* 102 mmol/L (96-114); Sodium* 133 mmol/L (135-149)
[2022-11-01 21:35] LABS: Potassium* 3.5 mmol/L (3.6-5.1)
[2022-11-01 21:38] LABS: Alanine Aminotransferase* 56 U/L (4-50); Alkaline Phosphatase* 51 U/L (40-150); Aspartate Amino Transferase* 202 U/L (12-35); Bilirubin Total* 2.9 mg/dL (0.1-1.5); Blood Urea Nitrogen* 33 mg/dL (7-30); Calcium* 8.2 mg/dL (8.4-10.6); Carbon Dioxide* 21 mmol/L (20-32); Creatinine* 1.6 mg/dL (0.5-1.5); Est. Creatinine Clearance* 42.96; Estimated Glomerular Filt Rate 46 ml/min; Glucose* 216 mg/dL (60-115); Magnesium* 1.2 mg/dL (1.5-2.6); Total Protein* 6.2 g/dL (6.0-8.3)
[2022-11-01 21:55] LABS: C Reactive Protein* 22.6 mg/dL (0.5-1.0)
[2022-11-01] MEDS: MAGNESIUM IV 2 GM/50 ML PIGGYBACK IVPB (22:13)
[2022-11-01] MEDS: 0.9 % SODIUM CHLORIDE 1000 ml 1,000 ML IV (22:13)
[2022-11-01 22:21] LABS: Creatine Kinase* 10364 U/L (54-186); Ethanol* < 0.01 % (0.01-0.03)
[2022-11-01 23:10] VITALS: PULSE 77; O2SAT 97
[2022-11-01 23:15] VITALS: PULSE 79; O2SAT 99
[2022-11-01 23:30] VITALS: PULSE 77; O2SAT 98
[2022-11-01 23:40] VITALS: BP 139/66; PULSE 76; O2SAT 99
[2022-11-01 23:45] VITALS: PULSE 75; O2SAT 98
[2022-11-02] VITALS (13 sets, daily range): BP systolic 126–159; BP diastolic 64–71; PULSE 68–94; RESP 18–20; TEMP 36.8–38.2; O2SAT 96–100; BMI 33.0
[2022-11-02 00:01] LABS: Troponin, Point-of-Care* 0.06 ng/ml (0.01-0.04)
[2022-11-02 00:44] LABS: Appearance Urine Turbid (Clear); Bilirubin Urine 1+ (Negative); Blood Urine 3+ (Negative); Color Urine Yellow (Yellow); Glucose Urine Trace (Negative); Ketones Urine 2+ (Negative); Leukocyte Esterase Urine Negative (Negative); Nitrite Urine Positive (Negative); Protein Urine 2+ (Negative); Specific Gravity Urine 1.025 (1.000-1.030); Urobilinogen Urine 0.2 (0.2-1.0); pH Urine 5.5 (5.0-8.5)
--- NOTE | 2022-11-02 00:44 | ED.NURSE ---
patient report given to kori HAAGN. patient going to room 255
[2022-11-02 00:46] LABS: RBC Urine 0-2 (0-2)
[2022-11-02 00:47] LABS: Bacteria Urine Moderate; Fine Granular Casts Urine Moderate
--- NOTE | 2022-11-02 01:36 | PM.IMCN1 ---
Date of Consult Consult date: 11/02/22 Primary Care Provider: Rubén Boyle MD Consult Narrative Narrative: Bari Mora is a 72 year old male [facility] Medical History Elevated bilirubin ?R17 - Unspecified jaundice (ICD-10) Metabolic encephalopathy ?G93.41 - Metabolic encephalopathy (ICD-10) Low back pain ?M54.50 - Low back pain, unspecified (ICD-10) Vitamin D deficiency ?E55.9 - Vitamin D deficiency, unspecified (ICD-10) Type 2 diabetes mellitus treated with insulin ?E11.9 - Type 2 diabetes mellitus without complications (ICD-10) ?Z79.4 - longterm (current) use of insulin (ICD-10) History of transcatheter aortic valve replacement (TAVR) ?Z95.2 - Presence of prosthetic heart valve (ICD-10) BPH (benign prostatic hyperplasia) ?N40.0 - Benign prostatic hyperplasia without lower urinary tract symptoms (ICD-10) History of non-anemic folic acid deficiency ?Z86.39 - Personal history of other endocrine, nutritional and metabolic disease (ICD-10) History of colonic polyps (05/10/13) ?Z86.010 - Personal history of colonic polyps (ICD-10) Folic acid deficiency (01/22/16) ?E53.8 - Deficiency of other specified B group vitamins (ICD-10) Erectile dysfunction ?N52.9 - Male erectile dysfunction, unspecified (ICD-10) Current moderate episode of major depressive disorder without prior episode (01/14/17) ?F32.1 - Major depressive disorder, single episode, moderate (ICD-10) Controlled substance agreement signed (04/19/18) ?Z79.899 - Other terminal makeup operator (current) drug therapy (ICD-10) C. difficile diarrhea ?A04.72 - Enterocolitis due to Clostridium difficile, not specified as recurrent (ICD-10) Pancytopenia ?D61.818 - Other pancytopenia (ICD-10) Non-STEMI (non-ST elevated myocardial infarction) ?I21.4 - Non-ST elevation (NSTEMI) myocardial infarction (ICD-10) Pain syndrome, chronic ?G89.4 - Chronic pain syndrome (ICD-10) Chronic kidney disease (CKD) ?N18.9 - Chronic kidney disease, unspecified (ICD-10) History of ETOH abuse ?F10.11 - Alcohol abuse, in remission (ICD-10) CHF (congestive heart failure) ?I50.9 - Heart failure, unspecified (ICD-10) Mitral regurgitation ?I34.0 - Nonrheumatic mitral (valve) insufficiency (ICD-10) Diabetic neuropathy ?E11.40 - Type 2 diabetes mellitus with diabetic neuropathy, unspecified (ICD-10) GERD (gastroesophageal reflux disease) ?K21.9 - Gastro-esophageal reflux disease without esophagitis (ICD-10) Hyperlipidemia ?E78.5 - Hyperlipidemia, unspecified (ICD-10) HTN (hypertension) ?I10 - Essential (primary) hypertension (ICD-10) Diverticulosis ?K57.90 - Diverticulosis of intestine, part unspecified, without perforation or abscess without bleeding (ICD-10) Surgical History History of coronary artery stent placement ?Z95.5 - Presence of coronary angioplasty implant and graft (ICD-10) S/P TAVR (transcatheter aortic valve replacement) ?Z95.2 - Presence of prosthetic heart valve (ICD-10) History of liver transplant (07/10/16) ?Z94.4 - Liver transplant status (ICD-10) History of decompression of ulnar nerve (1979) ?Z98.890 - Other specified postprocedural states (ICD-10) History of cataract extraction (2017) ?Z98.49 - Cataract extraction status, unspecified eye (ICD-10) 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 He lives by himself. He functions independently. He is retired. Remote history of smoking having quit about 20 years ago after a 10 pack year history. 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 Last drank in 2016 What is your current living situation?: I presently have a place to live Problems where you live: no known problems Problems where you live details: None per pt report In the past 12 months, utilities in danger of being shut off: no In the past 12 mos, have been you worried that your food would run out before you had money to buy more?: never true In the past 12 mos, the food you bought just didn't last and you didn't have money to buy more?: never true Highest level of school completed/degree received: some college, no degree Smoking Status: Former smoker Do you use any of these nicotine containing products: None Second hand tobacco smoke exposure: No How often do you have a drink containing alcohol: never How often do you have six or more drinks on one occasion: Never AUDIT-C Alcohol total score: 0 Non-prescribed substance use: denies use Caffeine: Yes (2 12oz bottles daily) How often does anyone, including family, friends and others, physically hurt you: never How often does anyone, including family, friends and others, insult or talk down to you: never How often does anyone, including family, friends and others, threaten you with harm: never How often does anyone, including family, friends and others, scream or curse at you: never Little interest or pleasure in doing things: more than half the days Feeling down, depressed, or hopeless: more than half the days service: No Meds Home Medications and Allergies Home Medications Medication Instructions Recorded Confirmed Type aspirin 81 mg tablet,delayed 81 mg PO DAILY 10/22/21 11/01/22 History release (Adult Aspirin Regimen) azathioprine 50 mg tablet 150 mg PO DAILY 10/22/21 11/01/22 History insulin aspart U-100 100 unit/mL 100 unit subcut DAILY 04/22/22 11/01/22 History subcutaneous solution tacrolimus 0.5 mg capsule, 1.5 - 2 mg PO Q12H 05/17/22 11/01/22 History immediate-release cholecalciferol (vitamin D3) 25 4,000 unit PO DAILY 10/26/22 11/01/22 History mcg (1,000 unit) capsule doxazosin 2 mg tablet 4 mg PO HS 10/26/22 11/01/22 History ferrous sulfate 325 mg (65 mg 325 mg PO DAILY 10/26/22 11/01/22 History iron) tablet furosemide 40 mg tablet 40 mg PO QAM PRN 10/26/22 11/01/22 History omeprazole 20 mg capsule,delayed 40 mg PO DAILY 10/26/22 11/01/22 History release sodium bicarbonate 650 mg tablet 1,300 mg PO BID 10/26/22 11/01/22 History tamsulosin 0.4 mg capsule 0.4 mg PO DAILY 10/26/22 11/01/22 History clopidogrel 75 mg tablet 75 mg PO DAILY 11/01/22 11/01/22 History Allergies Allergy/AdvReac Type Severity Reaction Status Date / Time phytonadione (vitamin K1) Allergy Intermediate Unknown Verified 10/30/22 13:43 Exam Const: Vital Signs, click to edit/add: Vital Signs - 24 hr 11/01/22 20:35 11/01/22 23:10 11/01/22 23:15 Temperature 98.5 F Pulse Rate 77 79 Pulse Rate [Right Pulse Oximeter] 86 Respiratory Rate 18 Blood Pressure Blood Pressure [Ri ght Arm] Blood Pressure [Ri ght Upper Arm] 145/101 H Pulse Oximetry 99 97 [facility] 11/01/22 23:30 11/01/22 23:40 11/01/22 23:45 Temperature Pulse Rate 77 76 75 Pulse Rate [Right Pulse Oximeter] Respiratory Rate Blood Pressure 139/66 Blood Pressure [Ri ght Arm] Blood Pressure [Ri ght Upper Arm] Pulse Oximetry 98 99 98 Oxygen Delivery Ut thod 11/02/22 00:00 11/02/22 00:15 11/02/22 00:30 Temperature Pulse Rate 92 89 82 Pulse Rate [Right Pulse Oximeter] Respiratory Rate Blood Pressure Blood Pressure [Ri ght Arm] Blood Pressure [Ri ght Upper Arm] Pulse Oximetry 99 100 99 Oxygen Delivery Ut thod 11/02/22 00:46 11/02/22 01:10 Temperature 98.5 F Pulse Rate Pulse Rate [Right Pulse Oximeter] 82 Respiratory Rate 18 Blood Pressure 126/65 Blood Pressure [Ri ght Arm] 141/71 H Blood Pressure [Ri ght Upper Arm] Pulse Oximetry 96 Oxygen Delivery Me thod Room Air Labs Labs: Short CBC 11/01/22 Range/Units 21:14 WBC 5.39 (4.50-11.00) K/uL Hgb 10.7 L (13.5-17.5) gm/dL Hct 29.9 L (37.0-53.0) % Plt Count 114 L (140-440) K/uL BMP 11/01/22 21:14 Sodium 133 L Potassium 3.5 L Chloride 102 Carbon Dioxide 21 BUN 33 H Creatinine 1.6 H Glucose 216 H Calcium 8.2 L Cardiac Enzymes 11/01/22 Range/Units 21:14 Total Creatine Kinase 95681 H (54-186) U/L Liver Function 11/01/22 Range/Units 21:14 Total Bilirubin 2.9 H (0.1-1.5) mg/dL AST 202 H (12-35) U/L ALT 56 H (4-50) U/L Alkaline Phosphatase 51 (40-150) U/L Albumin 3.5 (3.3-5.0) g/dL Urine 11/02/22 Range/Units 00:10 Urine Color Yellow (Yellow) Urine Appearance Turbid A (Clear) Urine pH 5.5 (5.0-8.5) Ur Specific [place] 1.025 (1.000-1.030) Urine Protein 2+ A (Negative) Urine Glucose (UA) Trace A (Negative) Assessment and Plan Assessment and plan (1) Rhabdomyolysis: Status: Acute (2) Fungal dermatitis: Status: Acute (3) Hypomagnesemia: Status: Acute (4) Elevated bilirubin: Problem comment: - bilirubin improved during stay; rest of LFTs remained wnl Status: Acute Plan [facility] Hospitalist eHospitalist was contacted with request of consultation on Mr. Bari Mora History obtained by speaking to the ER provider and patient on televisit. HPI?patient is a 72-year-old male with medical history of liver and kidney transplant, he was recently admitted to the same facility for 5 days and discharged on 30 October after being treated conservatively for abdominal pain nausea vomiting thought to be contributing to hypomagnesemia, generalized weakness and abdominal pain. Patient was noted by his cousins today lying on the floor for almost 8 hours before being brought to ER for evaluation. Patient stated he was coming back from the restroom and felt he tripped over the shoes on the floor and was too weak to go stand up again. He endorses generalized weakness but denies any fever, chills, cough, urinary symptoms, abdominal or chest pain. In the emergency room CT head and cervical spine were negative for acute abnormalities, chest x-ray was negative for pneumonia, labs were notable for WBC of 5K, hemoglobin 10.7, creatinine 1.6 up from 1.2 where he was discharged 2 days ago. His baseline has been between 1.2-1.6. CK was elevated at 10 K, AST disproportionately elevated to ALT, he does have previous history of alcohol use but serum alcohol level negative today. As per ER physician EKG negative for acute ST elevation, other than flattening of T waves, troponin 0.05 and 0.06 today almost similar to what he had on 10/25 and 10/27, but no chest pain. Bilirubin elevated. Patient was noted to have erythema on his chest and abdomen pannus, that the ER physician believed looked like fungal dermatitis that he was going to get antifungal topical medication for. He was given 2 g magnesium sulfate 1 L normal saline and is getting admitted for further management. Of note during patient's previous hospitalization there was a discussion about going to intermediate but patient preferred going home. Home Medications: Allopurinol, aspirin, atorvastatin, azathioprine, cholecalciferol, citalopram, clopidogrel, doxazosin, Lasix, gabapentin, insulin, metoprolol, omeprazole, oxycodone, tamsulosin, fentanyl patch Pertinent Medical History: HTN, liver and kidney transplant, ROSANA's, please see EMR Lives by himself Pertinent Social History: Former smoker, Exam (performed via interactive video with assistance of bedside nurse): General: alert, cooperative, no acute distress HEENT: Atraumatic head, eyes spontaneously open Lungs: Equal air entry bilaterally , no wheeze CV: normal rate and rhythm without loud murmur Abd: denies tenderness other than erythematous patches and does not exhibit signs of pain with palpation done by bedside nurse Ext: Trace pitting edema noted Skin: Mild jaundice, superficial erythematous patches noted on right upper quadrant and bilateral lower abdominal quadrants without any pus neuro: alert, oriented x3 . moves extremities without any new focal deficit Labs and imaging were reviewed. Assessment and Plan: Generalized weakness and prolonged immobilization following mechanical fall Severe hypomagnesemia Acute rhabdomyolysis with mild ROSANA History of liver and kidney transplant Abnormal LFTs CT head CT, CT cervical spine negative for acute abnormality, no loss of consciousness reported The exact etiology of patient's fall, elevated LFTs and profound hypomagnesemia is yet uncertain There is very low potential for recurrent alcohol use versus likely contribution from opioids to his weakness and fall Transamines could be elevated due to rhabdomyolysis, check GGT, repeat CMP in a.m. S/p 2 g magnesium sulfate in ER, recheck this morning, replace further as needed S/p 1 L NS in ER, start half-normal saline bicarb drip at 125 cc/h overnight, (spoke with e pharmacy and rn to order)monitor SHAE's, recheck renal function morning Resume home immunosuppressants per pharmacy as per schedule in the morning, consulted pharmacy If renal function does not improve by tomorrow consider consultation with transplant center with potential transfer in a.m., discussed with the ED provider, they have admitted him previously and feels comfortable taking care of him locally, avoid nephrotoxic drugs, bladder scan if unable to pass urine Ordered GGT, differential bili for next lab check, if LFTs do not improve with hydration, get CT abdomen without contrast or RUQ ultrasound to rule out obstructive jaundice Anterior abdominal wall dermatitis, Likely fungal, continue topical nystatin powder, keep the area dry and clean If develops leukocytosis, or fever consider starting antibiotics Due to persistent generalized weakness it appears that patient is unable to stay safe please take care of him at home, consider physical therapy evaluation and intermediate/rehab referral on DC Comorbidities HTN, gout, depression, HLP, GERD, musculoskeletal pain Resume appropriate home medications once reconciled, avoid nephrotoxic drugs Renal diet, full code, SCDs, subcut heparin for dvt ppx, hold if plt<50k thank you for including [facility] in the patients care. This service is available for further assistance as requested by your care team by calling [phone].
[2022-11-02] MEDS: MUPIROCIN 1 GM PACKET 1 APPLIC TOPICAL (03:17)
--- NOTE | 2022-11-02 06:51 | PC.NURSE ---
Shift note: Pt arrived at the unit at 0050 on admission bed conscious, alert, and oriented. Pt confirmed feeling weak with sore pain on abdomen and right shoulder. Pt has Khanna catheter in place and has been been using khanna for the past 3 years. Pt is unable to stand upright on his own and transfer with A2. Pt has numerous open areas on the trunk and left arm. Complained of severe pain on touch. Khanna patent and draining dark isa color urine with normal odor. Pt had 1 incontinent loose stool. Assisted to bedside commode with A2. IV line at left AC is patent. Pt will need LTC placement upon discharge.
[2022-11-02 07:24] LABS: HCO3 VBG 23 mmol/L (21-28); PCO2 VBG 37 mmHG (40-50); PO2 VBG 31.1 mmHG (25-47); pH VBG 7.405 (7.32-7.43)
[2022-11-02 07:26] LABS: Eosinophils Percent Auto 0.3 % (0.0-7.0); Hematocrit 27.7 % (37.0-53.0); Hemoglobin* 9.8 gm/dL (13.5-17.5); Immature Granulocytes Pct Auto 0.3 %; Lymphocytes Percent Auto 5.5 % (20-44); Mean Corpuscular HGB Conc 35 gm/dL (32-36); Mean Corpuscular Hemoglobin 33 pg (26-34); Mean Corpuscular Volume 93 fL (80-100); Monocytes Percent Auto 7.5 % (0.0-11.0); Neutrophils Percent Auto 86.4 % (42.0-72.0); Platelet Count* 104 K/uL (140-440); Red Blood Count 2.98 m/uL (4.30-5.90); White Blood Count* 3.98 K/uL (4.50-11.00)
[2022-11-02 07:29] LABS: Slide Review Reflex No
[2022-11-02 07:45] LABS: Albumin* 3.2 g/dL (3.3-5.0); Chloride* 101 mmol/L (96-114)
[2022-11-02 07:46] LABS: Potassium* 3.4 mmol/L (3.6-5.1); Sodium* 133 mmol/L (135-149)
[2022-11-02 07:48] LABS: Aspartate Amino Transferase* 164 U/L (12-35); Bilirubin Direct* 0.2 mg/dL (0.0-0.5); Bilirubin Total* 2.6 mg/dL (0.1-1.5); Blood Urea Nitrogen* 30 mg/dL (7-30); Carbon Dioxide* 23 mmol/L (20-32); Creatinine* 1.5 mg/dL (0.5-1.5); Est. Creatinine Clearance* 47.31; Estimated Glomerular Filt Rate 50 ml/min; Glucose* 177 mg/dL (60-115); Total Protein* 5.9 g/dL (6.0-8.3)
[2022-11-02 07:49] LABS: Alanine Aminotransferase* 60 U/L (4-50); Alkaline Phosphatase* 48 U/L (40-150); Calcium* 8.2 mg/dL (8.4-10.6); Gamma Glutamyl Transpeptidase* 19 U/L (8-55); Magnesium* 1.5 mg/dL (1.5-2.6)
[2022-11-02 08:06] LABS: Creatine Kinase* 6832 U/L (54-186)
[2022-11-02] MEDS: BACITRACIN OINTMENT BULK TUBE 1 APPLIC TOPICAL (09:36)
[2022-11-02] MEDS: allopurinoL 100 MG TABLET PO (09:36)
[2022-11-02] MEDS: CLOPIDOGREL 75 MG TABLET PO (09:37)
[2022-11-02] MEDS: GABAPENTIN 600 MG TABLET PO ×2 (09:37→21:22)
[2022-11-02] MEDS: METOPROLOL TARTRATE 25 MG TABLET PO ×2 (09:37→21:23)
[2022-11-02] MEDS: ASPIRIN 81 MG TABLET EC PO (09:37)
[2022-11-02] MEDS: HEPARIN 5,000 UNIT/0.5 ML INJ 5000 UNIT SUBCUT (09:38)
[2022-11-02 10:07] LABS: Ionized Calcium* 1.13 mmol/L (1.11-1.30)
[2022-11-02] MEDS: OXYCODONE 5 MG TABLET PO ×3 (10:13→21:22)
[2022-11-02] MEDS: CITALOPRAM HYDROBROMIDE 20 MG TABLET 40 MG PO (10:13)
[2022-11-02] MEDS: MULTIVITAMIN/MINERALS 1 TABLET 1 TAB PO (10:13)
[2022-11-02] MEDS: OMEPRAZOLE 20 MG CAPSULE DR 40 MG PO (10:15)
[2022-11-02] MEDS: SODIUM BICARBONATE 650 MG TABLET 1300 MG PO ×2 (10:15→21:20)
[2022-11-02] MEDS: FERROUS SULFATE 325 MG TABLET PO (10:15)
[2022-11-02] MEDS: azaTHIOprine 50 MG TABLET 150 MG PO (10:16)
[2022-11-02] MEDS: TACROLIMUS 0.5 MG CAPSULE 2 MG PO (10:16)
[2022-11-02 10:33] LABS: Procalcitonin* 1.37 ng/mL (<0.50)
[2022-11-02] MEDS: TAMSULOSIN HCL 0.4 MG CAPSULE PO (11:09)
--- NOTE | 2022-11-02 11:15 | PM.IMHP1 ---
Hospitalist- H&P: HPI History of Present Illness Date Seen: 11/02/22 Chief complaint: Weakness Narrative: ADMISSION HISTORY AND PHYSICAL - HOSPITALIST Chief Complaint: Fall at home, rhabdo HPI: Lito is a 72-year-old with multiple medical problems who just discharged from our service 3 days ago. He presented last night via EMS secondary to a fall at home. Please see the ER and the [facility] hospitalist's notes for further detail. Essentially he laid on the floor for at least 8 hours maybe closer to 12 with his neck up against the wall and 2 shoes under his right thorax. He tried scooting and rolling to no avail. He has abrasions across his anterior abdominal wall and thorax. When he was admitted most recently we were managing nausea, vomiting, diarrhea with intermittent obtundation. No specific cause of his GI symptoms was pinpoint did but all of his labs improved. Hospital medicine team felt rehab and potentially assisted living was best fit for him he wanted to return home. ER COURSE: Fluid bolus. Labs reflecting rhabdomyolysis with elevated CK at over 10,000, ROSANA, evidence of dehydration. CT neck and head were unremarkable. Admitted on bicarb and isotonic saline, electrolyte management secondary to hypomagnesemia, hypocalcemia, hypokalemia. CODE STATUS: Full code EMERGENCY CONTACT PLAN: Brother I've updated the PFSH, medications and allergies in the [place] tabs. INVESTIGATIONS: LABS/MICRO/ECG/IMAGING CBC reflects a stable white blood cell count. Mildly more anemic at 9.8 with no obvious signs of bleeding. Platelet count that is down to 104 from a previous baseline in the 150s. Blood gas is reassuring with a normal pH is 7.4 no pCO2 retention. Chemistries reveal a mild hyponatremia, mild hypokalemia. In ROSANA that is already resolving. His discharge creatinine was 1.2, last night creatinine was 1.6 and this morning 1.5. Ionized calcium is normal at 1.13 Magnesium as improved with supplementation up to 1.5 Total bili is already improving back down to 2.6, his discharge bilirubin or a baseline bilirubin is probably 1.5-1.7 LFTs are all improving. Creatinine kinase initially 10,300 and now 6800 CRP is elevated, procalcitonin is elevated Cultures are pending T-max 100.7? zosyn ordered to start am of 11/02 REVIEW OF SYSTEMS: 12-point ROS completed with patient and negative unless otherwise stated in HPI or below. PHYSICAL EXAM: CONSTITUTIONAL: He is not obtunded or sleepy like at times in his last admission. He relates his story but is not very insightful; he's asking to go home. VITAL SIGNS: see record. HEENT: Normocephalic, atraumatic. PERRL, EOMI, conjunctivae pink, no scleral icterus. Ears and nose externally normal. Pharynx normal. poor dentition. NECK: No JVD. No carotid bruit, no thyromegaly, no adenopathy. CHEST: Clear to auscultation bilaterally abdomen: obese. HEART: S1 and S2 normal. No harsh murmurs. Edema MUSCULOSKELETAL: No gross joint deformity or swelling. NEURO: Cranial nerves intact. Grossly intact. No asymmetric findings. SKIN: large areas of abrasions noted on his anterior lower abdominal wall, side of thorax and lateral upper thigh. PSYCHIATRIC: Euthymic. ADMIT TO MEDSURG: FLOOR CARE DVT: Lovenox GI: PO intake, PPI Time spent: 70 minutes examining patient, conferring with family and patient, care staff, developing care plan [facility] Medical History (Updated 11/02/22 @ 11:50 by Laurie De La O MD) Elevated bilirubin ?R17 - Unspecified jaundice (ICD-10) Metabolic encephalopathy ?G93.41 - Metabolic encephalopathy (ICD-10) Low back pain ?M54.50 - Low back pain, unspecified (ICD-10) Vitamin D deficiency ?E55.9 - Vitamin D deficiency, unspecified (ICD-10) Type 2 diabetes mellitus treated with insulin ?E11.9 - Type 2 diabetes mellitus without complications (ICD-10) ?Z79.4 - correction (current) use of insulin (ICD-10) History of transcatheter aortic valve replacement (TAVR) ?Z95.2 - Presence of prosthetic heart valve (ICD-10) BPH (benign prostatic hyperplasia) ?N40.0 - Benign prostatic hyperplasia without lower urinary tract symptoms (ICD-10) History of non-anemic folic acid deficiency ?Z86.39 - Personal history of other endocrine, nutritional and metabolic disease (ICD-10) History of colonic polyps (05/10/13) ?Z86.010 - Personal history of colonic polyps (ICD-10) Folic acid deficiency (01/22/16) ?E53.8 - Deficiency of other specified B group vitamins (ICD-10) Erectile dysfunction ?N52.9 - Male erectile dysfunction, unspecified (ICD-10) Current moderate episode of major depressive disorder without prior episode (01/14/17) ?F32.1 - Major depressive disorder, single episode, moderate (ICD-10) Controlled substance agreement signed (04/19/18) ?Z79.899 - Other computer terminal operator (current) drug therapy (ICD-10) C. difficile diarrhea ?A04.72 - Enterocolitis due to Clostridium difficile, not specified as recurrent (ICD-10) Pancytopenia ?D61.818 - Other pancytopenia (ICD-10) Pain syndrome, chronic ?G89.4 - Chronic pain syndrome (ICD-10) Chronic kidney disease (CKD) ?N18.9 - Chronic kidney disease, unspecified (ICD-10) History of ETOH abuse ?F10.11 - Alcohol abuse, in remission (ICD-10) CHF (congestive heart failure) ?I50.9 - Heart failure, unspecified (ICD-10) Mitral regurgitation ?I34.0 - Nonrheumatic mitral (valve) insufficiency (ICD-10) Diabetic neuropathy ?E11.40 - Type 2 diabetes mellitus with diabetic neuropathy, unspecified (ICD-10) GERD (gastroesophageal reflux disease) ?K21.9 - Gastro-esophageal reflux disease without esophagitis (ICD-10) Hyperlipidemia ?E78.5 - Hyperlipidemia, unspecified (ICD-10) HTN (hypertension) ?I10 - Essential (primary) hypertension (ICD-10) Diverticulosis ?K57.90 - Diverticulosis of intestine, part unspecified, without perforation or abscess without bleeding (ICD-10) Surgical History History of coronary artery stent placement ?Z95.5 - Presence of coronary angioplasty implant and graft (ICD-10) S/P TAVR (transcatheter aortic valve replacement) ?Z95.2 - Presence of prosthetic heart valve (ICD-10) History of liver transplant (07/10/16) ?Z94.4 - Liver transplant status (ICD-10) History of decompression of ulnar nerve (1979) ?Z98.890 - Other specified postprocedural states (ICD-10) History of cataract extraction (2018) ?Z98.49 - Cataract extraction status, unspecified eye (ICD-10) 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 He lives by himself. He functions independently. He is retired. Remote history of smoking having quit about 20 years ago after a 10 pack year history. 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 Last drank in 2016 What is your current living situation?: I presently have a place to live Problems where you live: no known problems Problems where you live details: N/A In the past 12 months, utilities in danger of being shut off: no In the past 12 mos, have been you worried that your food would run out before you had money to buy more?: never true In the past 12 mos, the food you bought just didn't last and you didn't have money to buy more?: never true Highest level of school completed/degree received: high school graduate Smoking Status: Never smoker Do you use any of these nicotine containing products: None Second hand tobacco smoke exposure: No How often do you have a drink containing alcohol: never How often do you have six or more drinks on one occasion: Never AUDIT-C Alcohol total score: 0 Non-prescribed substance use: denies use Caffeine: Yes How often does anyone, including family, friends and others, physically hurt you: never How often does anyone, including family, friends and others, insult or talk down to you: never How often does anyone, including family, friends and others, threaten you with harm: never How often does anyone, including family, friends and others, scream or curse at you: never Little interest or pleasure in doing things: more than half the days Feeling down, depressed, or hopeless: more than half the days service: No Meds Home Medications and Allergies Home Medications Medication Instructions Recorded Confirmed Type aspirin 81 mg tablet,delayed 81 mg PO DAILY 10/22/21 11/01/22 History release (Adult Aspirin Regimen) azathioprine 50 mg tablet 150 mg PO DAILY 10/22/21 11/01/22 History insulin aspart U-100 100 unit/mL 100 unit subcut DAILY 04/22/22 11/01/22 History subcutaneous solution tacrolimus 0.5 mg capsule, 1.5 - 2 mg PO Q12H 05/17/22 11/01/22 History immediate-release cholecalciferol (vitamin D3) 25 4,000 unit PO DAILY 10/26/22 11/01/22 History mcg (1,000 unit) capsule doxazosin 2 mg tablet 4 mg PO HS 10/26/22 11/01/22 History ferrous sulfate 325 mg (65 mg 325 mg PO DAILY 10/26/22 11/01/22 History iron) tablet furosemide 40 mg tablet 40 mg PO QAM PRN 10/26/22 11/01/22 History omeprazole 20 mg capsule,delayed 40 mg PO DAILY 10/26/22 11/01/22 History release sodium bicarbonate 650 mg tablet 1,300 mg PO BID 10/26/22 11/01/22 History tamsulosin 0.4 mg capsule 0.4 mg PO DAILY 10/26/22 11/01/22 History clopidogrel 75 mg tablet 75 mg PO DAILY 11/01/22 11/01/22 History Allergies Allergy/AdvReac Type Severity Reaction Status Date / Time phytonadione (vitamin K1) Allergy Intermediate Unknown Verified 10/30/22 13:43 Exam Const: Vital Signs, click to edit/add: Vital Signs - 24 hr 11/01/22 20:35 11/01/22 23:10 11/01/22 23:15 Temperature 98.5 F Pulse Rate 77 79 Pulse Rate [Right Pulse Oximeter] 86 Respiratory Rate 18 Blood Pressure Blood Pressure [Ri ght Arm] Blood Pressure [Ri ght Upper Arm] 145/101 H Pulse Oximetry 99 97 99 Oxygen Delivery Me thod Room Air 11/01/22 23:30 11/01/22 23:40 11/01/22 23:45 Temperature Pulse Rate 77 76 75 Pulse Rate [Right Pulse Oximeter] Respiratory Rate Blood Pressure 139/66 Blood Pressure [Ri ght Arm] Blood Pressure [Ri ght Upper Arm] Pulse Oximetry 98 99 98 Oxygen Delivery Me thod 11/02/22 00:00 11/02/22 00:15 11/02/22 00:30 Temperature Pulse Rate 92 89 82 Pulse Rate [Right Pulse Oximeter] Respiratory Rate Blood Pressure Blood Pressure [Ri ght Arm] Blood Pressure [Ri ght Upper Arm] Pulse Oximetry 99 100 99 Oxygen Delivery Me thod 11/02/22 00:46 11/02/22 01:10 11/02/22 02:00 Temperature 98.5 F Pulse Rate 81 Pulse Rate [Right Pulse Oximeter] 82 Respiratory Rate 18 Blood Pressure 126/65 Blood Pressure [Ri ght Arm] 141/71 H Blood Pressure [Ri ght Upper Arm] Pulse Oximetry 96 Oxygen Delivery Me thod Room Air 11/02/22 08:14 Temperature 100.7 F H Pulse Rate Pulse Rate [Right Pulse Oximeter] 94 Respiratory Rate 20 Blood Pressure Blood Pressure [Ri ght Arm] 159/70 H Blood Pressure [Ri ght Upper Arm] Pulse Oximetry 98 Oxygen Delivery Me thod Room Air Hospitalist - H&P: Result Labs Labs: Short CBC 11/01/22 11/02/22 Range/Units 21:14 07:18 WBC 5.39 3.98 L (4.50-11.00) K/uL Hgb 10.7 L 9.8 L (13.5-17.5) gm/dL Hct 29.9 L 27.7 L (37.0-53.0) % Plt Count 114 L 104 L (140-440) K/uL BMP 11/01/22 11/02/22 21:14 07:18 Sodium 133 L 133 L Potassium 3.5 L 3.4 L Chloride 102 101 Carbon Dioxide 21 23 BUN 33 H 30 Creatinine 1.6 H 1.5 Glucose 216 H 177 H Calcium 8.2 L 8.2 L Cardiac Enzymes 11/01/22 11/02/22 Range/Units 21:14 07:18 Total Creatine Kinase 13590 H 6832 H (54-186) U/L Liver Function 11/01/22 11/02/22 Range/Units 21:14 07:18 Total Bilirubin 2.9 H 2.6 H (0.1-1.5) mg/dL Direct Bilirubin 0.2 (0.0-0.5) mg/dL GGT 19 (8-55) U/L AST 202 H 164 H (12-35) U/L ALT 56 H 60 H (4-50) U/L Alkaline Phosphatase 51 48 (40-150) U/L Albumin 3.5 3.2 L (3.3-5.0) g/dL Urine 11/02/22 Range/Units 00:10 Urine Color Yellow (Yellow) Urine Appearance Turbid A (Clear) Urine pH 5.5 (5.0-8.5) Ur Specific [place] 1.025 (1.000-1.030) Urine Protein 2+ A (Negative) Urine Glucose (UA) Trace A (Negative) Assessment and Plan Assessment and plan (1) Fall at home: Problem comment: 11/01 - on the floor for at least [address] rash. Status: Acute (2) Rhabdomyolysis: Problem comment: 10K CK bicarb isotonic infusing trend labs Status: Acute (3) Hypomagnesemia: Problem comment: replaced. Status: Acute (4) ROSANA (acute kidney injury): Problem comment: - improved during stay; discharge creatinine 1.2 with baseline is 1.3-1.6. Status: Acute (5) Type 2 diabetes mellitus treated with insulin: Problem comment: A1C 6.3; not eating well. will hold insulin except for SSI as needed. Status: Acute (6) Kidney transplant recipient: Status: Acute (7) Liver transplant recipient: Status: Acute (8) SIRS (systemic inflammatory response syndrome): Problem comment: febrile. procalcitonin and crp elevated. not tachy or hypotension. lactate not drawn. pH is normal. Status: Acute (9) Elevated uric acid in blood: Problem comment: - started 100mg allopurinol daily Status: Acute (10) Elevated bilirubin: Problem comment: baseline about 1.5-1.7 from fall and imbolization Status: Acute (11) Weakness: Problem comment: -bounceback admission; likely needs SNF - longer rehab program. Status: Acute
[2022-11-02] MEDS: MAGNESIUM IV 2 GM/50 ML PIGGYBACK IVPB (11:57)
[2022-11-02 12:23] LABS: Lactate* 0.8 mmol/L (0.5-1.9)
[2022-11-02] MEDS: PIPERACILLIN/TAZOBACTAM 3.375 GM in 0.9 % SODIUM CHLORIDE Mini-bag 100 ML IVPB ×2 (13:55→19:54)
[2022-11-02 15:08] LABS: Ionized Calcium* 1.17 mmol/L (1.11-1.30)
[2022-11-02 15:44] LABS: Chloride* 97 mmol/L (96-114); Potassium* 3.3 mmol/L (3.6-5.1); Sodium* 131 mmol/L (135-149)
[2022-11-02 15:46] LABS: Creatinine* 1.5 mg/dL (0.5-1.5); Est. Creatinine Clearance* 47.31; Estimated Glomerular Filt Rate 50 ml/min
[2022-11-02 15:47] LABS: Blood Urea Nitrogen* 26 mg/dL (7-30); Calcium* 8.2 mg/dL (8.4-10.6); Carbon Dioxide* 26 mmol/L (20-32); Glucose* 224 mg/dL (60-115)
[2022-11-02 16:08] LABS: Creatine Kinase* 5867 U/L (54-186)
[2022-11-02 16:54] LABS: Appearance Urine Cloudy (Clear); Bilirubin Urine Negative (Negative); Blood Urine 3+ (Negative); Color Urine Yellow (Yellow); Glucose Urine 3+ (Negative); Ketones Urine Trace (Negative); Leukocyte Esterase Urine 1+ (Negative); Nitrite Urine Positive (Negative); Protein Urine 2+ (Negative)
[2022-11-02] MEDS: POTASSIUM BICARB 25 MEQ EFFERVESCENT TAB PO ×2 (16:54→18:44)
[2022-11-02 17:02] LABS: Bacteria Urine Few; RBC Urine 50-100 (0-2); Squamous Epithelial Cell Urine Few (None-Few)
[2022-11-02 18:58] LABS: CDIFFEPI 027 PRESUMPTIVE NEGATIVE (Negative)
[2022-11-02 19:00] LABS: C.Difficile POSITIVE (Negative)
--- NOTE | 2022-11-02 19:38 | PC.NURSE ---
End of Shift: Patient pleasant and cooperative. Rating pain 9-10/10 in right arm/leg, PRN Oxycodone given x1. Up with 1-2 assist. Tolerating regular diet with no nausea. Incontinent of large loose BM x1. Stool sample sent.
[2022-11-02] MEDS: ENOXAPARIN 40 MG/0.4 ML INJ SUBCUT (21:20)
[2022-11-02] MEDS: DOXAZOSIN 4 MG TABLET PO (21:20)
[2022-11-02] MEDS: TACROLIMUS 0.5 MG CAPSULE 1.5 MG PO (21:21)
[2022-11-02] MEDS: ATORVASTATIN 10 MG TABLET 20 MG PO (21:21)
[2022-11-02] MEDS: VANCOMYCIN 125 MG CAPSULE PO (21:21)
[2022-11-02] MEDS: SODIUM CHLORIDE 0.9 % (FLUSH) 10 ML SYRINGE 5 ML IVF (21:23)
[2022-11-03] VITALS (7 sets, daily range): BP systolic 120–138; BP diastolic 60–79; PULSE 63–84; RESP 20; TEMP 36.6–37.2; O2SAT 95–98
[2022-11-03] MEDS: PIPERACILLIN/TAZOBACTAM 3.375 GM in 0.9 % SODIUM CHLORIDE Mini-bag 100 ML IVPB ×2 (01:52→06:55)
[2022-11-03] MEDS: OXYCODONE 5 MG TABLET PO ×3 (03:42→15:53)
[2022-11-03] MEDS: OMEPRAZOLE 20 MG CAPSULE DR 40 MG PO (06:57)
--- NOTE | 2022-11-03 07:29 | PC.NURSE ---
Pt alert and oriented x3. Afebrile. Pt reports pain 7/10 in right shoulder and right hip, pain managed with PRN oxycodone. Pt denies chest pain, SOB, and N/V.?Pt is up A1 to commode. Pt has a khanna catheter that is patent and draining.?Pt is tolerating a regular diet. Pt slept throughout most of night. ?
[2022-11-03 08:27] LABS: HCO3 VBG 32 mmol/L (21-28); Ionized Calcium* 1.05 mmol/L (1.11-1.30); Lactate* 1.3 mmol/L (0.5-1.9); PCO2 VBG 43 mmHG (40-50); PO2 VBG 47.9 mmHG (25-47); pH VBG 7.475 (7.32-7.43)
[2022-11-03] MEDS: CLOPIDOGREL 75 MG TABLET PO (08:35)
[2022-11-03] MEDS: GABAPENTIN 600 MG TABLET PO ×2 (08:35→20:24)
[2022-11-03] MEDS: TAMSULOSIN HCL 0.4 MG CAPSULE PO (08:36)
[2022-11-03] MEDS: CITALOPRAM HYDROBROMIDE 20 MG TABLET 40 MG PO (08:36)
[2022-11-03] MEDS: ASPIRIN 81 MG TABLET EC PO (08:36)
[2022-11-03] MEDS: allopurinoL 100 MG TABLET PO (08:37)
[2022-11-03] MEDS: azaTHIOprine 50 MG TABLET 150 MG PO (08:37)
[2022-11-03 08:38] LABS: Hematocrit 23.5 % (37.0-53.0); Hemoglobin* 8.3 gm/dL (13.5-17.5); Mean Corpuscular HGB Conc 35 gm/dL (32-36); Mean Corpuscular Hemoglobin 33 pg (26-34); Mean Corpuscular Volume 93 fL (80-100); Platelet Count* 102 K/uL (140-440); Red Blood Count 2.53 m/uL (4.30-5.90); White Blood Count* 2.52 K/uL (4.50-11.00)
[2022-11-03] MEDS: MULTIVITAMIN/MINERALS 1 TABLET 1 TAB PO (08:38)
[2022-11-03] MEDS: VANCOMYCIN 125 MG CAPSULE PO ×4 (08:38→22:53)
[2022-11-03] MEDS: SODIUM BICARBONATE 650 MG TABLET 1300 MG PO ×2 (08:38→20:25)
[2022-11-03] MEDS: TACROLIMUS 0.5 MG CAPSULE 2 MG PO (08:38)
[2022-11-03] MEDS: FERROUS SULFATE 325 MG TABLET PO (08:38)
[2022-11-03 08:41] LABS: Slide Review Reflex No
[2022-11-03] MEDS: METOPROLOL TARTRATE 25 MG TABLET PO ×2 (08:45→20:23)
[2022-11-03 08:49] LABS: Albumin* 2.7 g/dL (3.3-5.0); Chloride* 94 mmol/L (96-114)
[2022-11-03 08:50] LABS: Sodium* 130 mmol/L (135-149)
[2022-11-03 08:52] LABS: Alkaline Phosphatase* 39 U/L (40-150); Aspartate Amino Transferase* 88 U/L (12-35); Bilirubin Total* 1.8 mg/dL (0.1-1.5); Blood Urea Nitrogen* 23 mg/dL (7-30); Carbon Dioxide* 31 mmol/L (20-32); Creatinine* 1.3 mg/dL (0.5-1.5); Est. Creatinine Clearance* 54.59; Estimated Glomerular Filt Rate 59 ml/min; Lipase* 36 U/L (23-300); Total Protein* 5.2 g/dL (6.0-8.3)
[2022-11-03 08:53] LABS: Alanine Aminotransferase* 53 U/L (4-50); Calcium* 7.5 mg/dL (8.4-10.6); Gamma Glutamyl Transpeptidase* 18 U/L (8-55); Glucose* 244 mg/dL (60-115); Magnesium* 1.6 mg/dL (1.5-2.6); Phosphorus* 2.3 mg/dL (2.5-4.5); Uric Acid* 4.5 mg/dL (2.2-8.4)
[2022-11-03 09:05] LABS: Troponin I* 0.02 ng/mL (0.01-0.04)
[2022-11-03 09:09] LABS: Procalcitonin* 0.92 ng/mL (<0.50)
[2022-11-03 09:10] LABS: C Reactive Protein* 19.2 mg/dL (0.5-1.0); Creatine Kinase* 2511 U/L (54-186); NT Pro B Type NatriureticPept* 2210 pg/mL
--- NOTE | 2022-11-03 10:19 | PM.IMPN1 ---
Progress Note: A&P Assessment and plan (1) Fall at home: Problem details: 11/01 - on the floor for at least [address] rash[address] Status: Acute (2) Weakness: Problem details: -bounceback admission; likely needs SNF - longer rehab program. -new reasons for weakness: fall with prolonged down time, ECOLI uti, CDIFF diarrhea Status: Acute (3) UTI (urinary tract infection): Problem details: pansensitive ecoli was on zosyn - transition to oral ceftin Status: Acute (4) Skin abrasion: Problem details: painful; not obviously infected oral ceftin and topical Mepilex are appropriate consider wound care consult Status: Acute (5) Acute hypokalemia: Problem details: replace with IV bolus and IVF Status: Acute (6) Hypocalcemia: Problem details: calcium chews ordered Status: Acute (7) Hyponatremia: Problem details: NS for IVF at this point I don't want to fluid restrict him as he has rhabdo salt tabs ordered Status: Acute (8) Rhabdomyolysis: Problem details: 10K CK - downtrending. change fluids to NS with K, adding oral salt tabs, calcium chews, IV potassium replacement trend labs Status: Acute (9) Hypomagnesemia: Problem details: replaced. normal 11/03 Status: Acute (10) ROSANA (acute kidney injury): Problem details: - improved during stay; discharge creatinine 1.2 with baseline is 1.3-1.6. -back to baseline Status: Acute (11) Type 2 diabetes mellitus treated with insulin: Problem details: A1C 6.3; not eating well. will hold insulin except for SSI as needed. Status: Acute (12) Kidney transplant recipient: Status: Acute (13) Liver transplant recipient: Status: Acute (14) SIRS (systemic inflammatory response syndrome): Problem details: febrile on 11/03. procalcitonin and crp elevated. not tachy or hypotension. +UC for pansensitive ecoli. no further fevers will stop IV zosyn and start oral Ceftin. Status: Acute (15) Elevated uric acid in blood: Problem details: - started 100mg allopurinol daily Status: Acute (16) Elevated bilirubin: Problem details: baseline about 1.5-1.7 from fall and imbolization resolved Status: Acute Subjective Date Seen: 11/03/22 Interval history: Daily Progress Note - Hospital Medicine Day #: 2 CC: fall at home, rhabdo, CDIFF diarrhea, electrolyte abnl, weakness, UTI OVERNIGHT UPDATES FROM STAFF & MED, LAB, IMAGING UPDATES loose but controlled stool overnight - + CDIFF. no further fevers urine culture pos ecoli several electrolyte issues CK downtrending 124/60. Pulse 75. Respiration 20. Afebrile. 97% on room air. T-max was that 100.7 documented yesterday no further fevers. 104 kilos CK is down to 2500 CRP and procalcitonin are down trending CBC reflects a mild leukocytosis. A down trending hemoglobin. A down trending white count. PH 7.47 No CO2 retention Mild alkalosis Sodium is 130, potassium 3.0 creatinine looks good at 1.3 which is back to baseline phosphorus is 2.3 Lactate is 1.3 Uric acid is down tremendously from 11+ down to 4.5 Ionized calcium is 1.05 Magnesium has normalized Total bili is back to his baseline Objective: I observed Vitals: see above Lungs: Clear. Cardiac: S1S2. skin: abrasions look no better, no worse Disposition/Potential discharge - Likely to return to previous living situation. Total time is 35 minutes with greater than 50% spent in counseling and coordination of care. Exam Const: Vital Signs, click to edit/add: Vital Signs - 24 hr 11/02/22 12:14 11/02/22 15:00 11/02/22 15:00 Temperature 99.8 F H Pulse Rate 81 Pulse Rate [Right Pulse Oximeter] 81 88 Respiratory Rate 20 18 Blood Pressure [Le ft Arm] Blood Pressure [Ri ght Arm] 143/64 H Pulse Oximetry 97 Oxygen Delivery Me thod Room Air 11/02/22 16:00 11/02/22 17:23 11/02/22 19:43 Temperature 99.1 F 98.2 F Pulse Rate 88 Pulse Rate [Right Pulse Oximeter] 88 90 Respiratory Rate 18 18 Blood Pressure [Le ft Arm] 153/71 H 135/65 Blood Pressure [Ri ght Arm] Pulse Oximetry 98 98 Oxygen Delivery Me thod Room Air Room Air 11/02/22 23:30 11/02/22 23:30 11/02/22 23:30 Temperature 98.4 F Pulse Rate 68 Pulse Rate [Right Pulse Oximeter] 78 78 Respiratory Rate 20 20 Blood Pressure [Le ft Arm] Blood Pressure [Ri ght Arm] 131/65 Pulse Oximetry 98 Oxygen Delivery Me thod Room Air 11/03/22 02:20 11/03/22 07:50 11/03/22 07:50 Temperature 98.3 F Pulse Rate 84 Pulse Rate [Right Pulse Oximeter] 65 65 Respiratory Rate 20 Blood Pressure [Le ft Arm] Blood Pressure [Ri ght Arm] 132/73 Pulse Oximetry 98 Oxygen Delivery Me thod Room Air 11/03/22 07:50 11/03/22 07:50 Temperature 98.5 F Pulse Rate Pulse Rate [Right Pulse Oximeter] 75 Respiratory Rate 20 20 Blood Pressure [Le ft Arm] 124/60 Blood Pressure [Ri ght Arm] Pulse Oximetry 97 97 Oxygen Delivery Me thod Room Air Room Air Labs Labs: Laboratory Results - last 24 hr 11/02/22 11/02/22 11/02/22 07:18 11:36 14:55 WBC RBC Hgb Hct MCV MCH MCHC Plt Count VBG pH VBG pCO2 VBG pO2 VBG HCO3 Sodium 131 L Potassium 3.3 L Chloride 97 Carbon Dioxide 26 BUN 26 Creatinine 1.5 Estimated Creat Clear 47.31 Estimated GFR 50 Glucose 224 H Lactate 0.8 Uric Acid Calcium 8.2 L Ionized Calcium [place] 1.17 Phosphorus Magnesium Total Bilirubin GGT AST ALT Alkaline Phosphatase Total Creatine Kinase 5867 H Troponin I C-Reactive Protein NT-Pro-B Natriuret Pep Total Protein Albumin Lipase Procalcitonin 1.37 H Urine Color Urine Appearance Urine pH Ur Specific [place] Urine Protein Urine Glucose (UA) Urine Ketones Urine Blood Urine Nitrite Urine Bilirubin Urine Urobilinogen Ur Leukocyte Esterase Urine RBC Urine WBC Ur Squamous Epith Cells Urine Bacteria Stl C. diff Tox B Gene Stl C. diff [id number] Lab Acknowledgement Test Added 11/02/22 11/03/22 11/03/22 16:30 08:20 08:20 WBC 2.52 L RBC 2.53 L Hgb 8.3 L Hct 23.5 L MCV 93 MCH 33 MCHC 35 Plt Count 102 L VBG pH 7.475 H VBG pCO2 43 VBG pO2 47.9 H VBG HCO3 32 H Sodium 130 L Potassium 3.0 L Chloride 94 L Carbon Dioxide 31 BUN 23 Creatinine 1.3 Estimated Creat Clear 54.59 Estimated GFR 59 Glucose 244 H Lactate 1.3 Uric Acid 4.5 Calcium 7.5 L Ionized Calcium [place] 1.05 L Phosphorus 2.3 L Magnesium 1.6 Total Bilirubin 1.8 H GGT 18 AST 88 H ALT 53 H Alkaline Phosphatase 39 L Total Creatine Kinase 2511 H Cancelled Troponin I 0.02 C-Reactive Protein 19.2 H NT-Pro-B Natriuret Pep 2210 Total Protein 5.2 L Albumin 2.7 L Lipase 36 Procalcitonin 0.92 H Urine Color Yellow Urine Appearance Cloudy A Urine pH 5.0 Ur Specific [place] 1.020 Urine Protein 2+ A Urine Glucose (UA) 3+ A Urine Ketones Trace A Urine Blood 3+ A Urine Nitrite Positive A Urine Bilirubin Negative Urine Urobilinogen 1.0 Ur Leukocyte Esterase 1+ A Urine RBC 50-100 A Urine WBC 10-25 A Ur Squamous Epith Cells Few Urine Bacteria Few A Stl C. diff Tox B Gene POSITIVE A* Stl C. diff [id number] PRESUMPTIVE NEGATIVE Lab Acknowledgement
[2022-11-03] MEDS: 0.9 % SODIUM CH + KCL 20 mEq/L 1,000 ML 125 ML IV ×2 (11:04→20:20)
[2022-11-03] MEDS: POTASSIUM CHLORIDE 10 MEQ/100 ML PIGGYBACK 100 MEQ IVPB ×2 (11:12→12:39)
--- NOTE | 2022-11-03 15:03 | PC.SOCIAL ---
Met with pt in room to discuss discharge plans. Pt is agreeable to short term rehab stay and would like to go to SNF in [place]. Phone call to [facility] in [place] at [phone]. There are openings and they will assess pt for possible admission. Faxed referral to [phone]. Phone call to [facility], Geni Burks at [phone] to see if a [facility] report was received on pt. Geni confirms that a new [facility] report was NOT received. Social work will follow up as needed.
[2022-11-03] MEDS: SODIUM CHLORIDE 1 GM TABLET PO (15:54)
--- NOTE | 2022-11-03 19:52 | PC.NURSE ---
Pt up slowly with SBA/assit of 1 and walker. Pt refuses gait belt due to skin abrasions and bruising to right torso. khanna in place, draining. Wearing brief bouts of continence and incontinences dark loose stool. Refused meds and lunch stating I just want to sleep. Up to chair for breakfast and dinner, quickly asking to return to bed stating the chair really hurts my back
[2022-11-03] MEDS: ENOXAPARIN 40 MG/0.4 ML INJ SUBCUT (20:20)
[2022-11-03] MEDS: MELATONIN 3 MG TABLET PO (20:23)
[2022-11-03] MEDS: DOXAZOSIN 4 MG TABLET PO (20:23)
[2022-11-03] MEDS: ATORVASTATIN 10 MG TABLET 20 MG PO (20:23)
[2022-11-03] MEDS: TACROLIMUS 0.5 MG CAPSULE 1.5 MG PO (20:23)
[2022-11-03] MEDS: ACETAMINOPHEN 325 MG TABLET PO (20:24)
[2022-11-03] MEDS: SODIUM CHLORIDE 0.9 % (FLUSH) 10 ML SYRINGE 5 ML IVF (20:25)
[2022-11-04] VITALS (9 sets, daily range): BP systolic 122–146; BP diastolic 52–65; PULSE 61–98; RESP 12–20; TEMP 36.2–37.2; O2SAT 94–97
[2022-11-04] MEDS: ACETAMINOPHEN 325 MG TABLET PO ×2 (02:57→20:15)
[2022-11-04] MEDS: OXYCODONE 5 MG TABLET PO ×5 (02:57→21:57)
[2022-11-04] MEDS: 0.9 % SODIUM CH + KCL 20 mEq/L 1,000 ML 125 ML IV (05:22)
[2022-11-04 06:24] LABS: Hematocrit 23.8 % (37.0-53.0); Hemoglobin* 8.3 gm/dL (13.5-17.5); Mean Corpuscular HGB Conc 35 gm/dL (32-36); Mean Corpuscular Hemoglobin 33 pg (26-34); Mean Corpuscular Volume 94 fL (80-100); Platelet Count* 102 K/uL (140-440); Red Blood Count 2.52 m/uL (4.30-5.90); White Blood Count* 2.07 K/uL (4.50-11.00)
[2022-11-04 06:26] LABS: Slide Review Reflex No
[2022-11-04] MEDS: OMEPRAZOLE 20 MG CAPSULE DR 40 MG PO (06:35)
[2022-11-04] MEDS: CARBOXYMETHYLCELLULOSE (REFRESH PLUS) TEARS 1 DROP EYE-BOTH (06:35)
[2022-11-04 06:38] LABS: Chloride* 100 mmol/L (96-114); Potassium* 3.6 mmol/L (3.6-5.1); Sodium* 135 mmol/L (135-149)
[2022-11-04 06:41] LABS: Carbon Dioxide* 33 mmol/L (20-32); Creatine Kinase* 1074 U/L (54-186); Creatinine* 1.3 mg/dL (0.5-1.5); Est. Creatinine Clearance* 54.59; Estimated Glomerular Filt Rate 59 ml/min; Gamma Glutamyl Transpeptidase* 18 U/L (8-55)
[2022-11-04 06:42] LABS: Blood Urea Nitrogen* 20 mg/dL (7-30); Calcium* 7.6 mg/dL (8.4-10.6); Glucose* 165 mg/dL (60-115); Phosphorus* 3.1 mg/dL (2.5-4.5)
--- NOTE | 2022-11-04 06:54 | PC.NURSE ---
[id number]: Patient had an uneventful night. Patient vitally stable. Pain controlled with PRN oxy and tylenol. Patient able to verbalize needs. 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 Patient has a total of 2 BMs. Patient using call light appropriately. Patient remains assist x 1 with transfers.
[2022-11-04 06:58] LABS: Procalcitonin* 0.62 ng/mL (<0.50)
[2022-11-04 07:21] LABS: C Reactive Protein* 13.7 mg/dL (0.5-1.0)
[2022-11-04] MEDS: SODIUM CHLORIDE 1 GM TABLET PO ×2 (08:28→12:29)
--- NOTE | 2022-11-04 10:50 | CRLHL7_ITS ---
For Patients: As a result of the Cures Act, medical imaging exams and procedure reports are released immediately into your electronic medical record. You may view this report before your referring provider. If you have questions, please contact your health care provider. Indication: Injury Technique: Two views of the lower right ribcage were acquired. A chest radiograph was not performed and not the entirety of the right rib cage was imaged on this study. Comparison: A chest radiograph from November 01, 2022 Findings: No obvious fracture. Please review the report of the contemporaneously CT Impression: Limited two-view study without obvious right rib fracture. Please review the report to the contemporaneously CT. Dictated by Evangelist Grimes MD @ 11/04/2022 2:57:47 PM (Electronically Signed)
--- NOTE | 2022-11-04 10:53 | CRLHL7_ITS ---
For Patients: As a result of the Century Cures Act, medical imaging exams and procedure reports are released immediately into your electronic medical record. You may view this report before your referring provider. If you have questions, please contact your health care provider. INDICATION: Anemia. Fall a few days prior COMPARISON: Portions of examinations performed in 2021 and most recently October 26, 2022. TECHNIQUE: CT examination of the chest, abdomen and pelvis was performed following the uneventful intravenous administration of 123 cc of Isovue 3 7. Thin section axial images were obtained from the thoracic inlet through the pubic symphysis. Oral contrast was not administered. Sagittal and coronal reformatted imaging was performed Please note that all CT scans at this facility use dose modulation, iterative reconstruction, and/or weight-based dosing when appropriate to reduce radiation dose to as low as reasonably achievable. FINDINGS: CHEST: No mediastinal or hilar adenopathy or mass. No pericardial effusion. No mediastinal vascular injury. Aortic valve repair. Atherosclerotic vascular calcifications. Trace bibasilar atelectasis. Very small bilateral effusions, right greater than left. No pleural effusion or pneumothorax. ABDOMEN AND PELVIS: LIVER/BILIARY SYSTEM:Normal sized liver. Fatty infiltration. No biliary ductal dilation. Postoperative changes related to the liver in the gallbladder. Similar appearance to the prior study. No posttraumatic finding ADRENALS: Normal KIDNEYS, URETERS and BLADDER:The right kidney appears normal. There is a left renal cyst. There is a right lower quadrant iliac fossa transplant kidney. There is gas within the right renal pelvis and bladder probably due to a Renteria catheter. There is mild inflammatory change about the transplant kidney though this is chronic since at least 2021. the bladder is poorly visualized due to streak artifact from hip arthroplasties. SPLEEN:Normal appearance. PANCREAS: Appears normal. RETROPERITONEUM and MESENTERY: There is no mass, adenopathy or aortic aneurysm. Atherosclerotic vascular calcifications GASTROINTESTINAL SYSTEM: There is no evidence of diverticulitis, colitis, mechanical obstruction, or appendicitis. The small bowel as visualized appears normal.Fecal retention. 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 OSSEOUS STRUCTURES and ABDOMINAL WALL: There is no visible acute fracture involving the pelvis, the thoracic spine, lumbar spine, the ribs or the sternum. Moderate-sized fat containing left inguinal hernia. There is some induration of the subcutaneous tissues of the right flank probably posttraumatic contusion. No discrete focal measurable collection. OTHER: No free fluid or free air. IMPRESSION: 1. CHEST: Very small bilateral effusions. Trace bibasilar atelectasis. No pneumothorax. No mediastinal vascular injury. 2. ABDOMEN AND PELVIS: No acute posttraumatic finding. There are nonacute appearing nontraumatic findings as discussed in the body of the report. Please review the Clomid regarding these findings. 3. OSSEOUS STRUCTURES: No visible acute posttraumatic finding Please note that all CT scans at this facility use dose modulation, iterative reconstruction, and/or weight-based dosing when appropriate to reduce radiation dose to as low as reasonably achievable. Dictated by Evangelist Grimes MD @ 11/04/2022 3:11:56 PM (Electronically Signed)
[2022-11-04] MEDS: TACROLIMUS 0.5 MG CAPSULE 2 MG PO (11:00)
[2022-11-04] MEDS: azaTHIOprine 50 MG TABLET 150 MG PO (11:02)
[2022-11-04] MEDS: MULTIVITAMIN/MINERALS 1 TABLET 1 TAB PO (11:03)
[2022-11-04] MEDS: VANCOMYCIN 125 MG CAPSULE PO ×4 (11:03→20:15)
[2022-11-04] MEDS: CITALOPRAM HYDROBROMIDE 20 MG TABLET 40 MG PO (11:04)
[2022-11-04] MEDS: ASPIRIN 81 MG TABLET EC PO (11:04)
[2022-11-04] MEDS: FERROUS SULFATE 325 MG TABLET PO (11:05)
[2022-11-04] MEDS: SODIUM BICARBONATE 650 MG TABLET 1300 MG PO ×2 (11:05→20:16)
[2022-11-04] MEDS: GABAPENTIN 600 MG TABLET PO ×2 (11:05→20:15)
[2022-11-04] MEDS: TAMSULOSIN HCL 0.4 MG CAPSULE PO (11:06)
[2022-11-04] MEDS: allopurinoL 100 MG TABLET PO (11:06)
[2022-11-04] MEDS: METOPROLOL TARTRATE 25 MG TABLET PO ×2 (11:09→20:16)
[2022-11-04] MEDS: CLOPIDOGREL 75 MG TABLET PO (11:25)
--- NOTE | 2022-11-04 12:21 | PM.IMPN1 ---
Progress Note: A&P Assessment and plan (1) Fall at home: Problem details: 11/01 - on the floor for at least [address] rash. with ongoing pain, 3 point hemoglobin loss, bruising/road rash abrasions I will get CAP CT Status: Acute (2) Weakness: Problem details: -bounceback admission; likely needs SNF - longer rehab program. -new reasons for weakness: fall with prolonged down time, ECOLI uti, CDIFF diarrhea Status: Acute (3) UTI (urinary tract infection): Problem details: pansensitive ecoli was on zosyn - transition to oral ceftin Status: Acute (4) Skin abrasion: Problem details: painful; not obviously infected oral ceftin and topical Mepilex are appropriate consider wound care consult Status: Acute (5) Acute hypokalemia: Problem details: resolved Status: Acute (6) Hypocalcemia: Problem details: resolving. calcium chews ordered Status: Acute (7) Hyponatremia: Problem details: resolved. Status: Acute (8) Rhabdomyolysis: Problem details: 10K CK - downtrending. change fluids to NS with K, adding oral salt tabs, calcium chews, IV potassium replacement trend labs Status: Acute (9) Hypomagnesemia: Problem details: replaced. normal 11/03 Status: Acute (10) ROSANA (acute kidney injury): Problem details: - improved during stay; discharge creatinine 1.2 with baseline is 1.3-1.6. -back to baseline Status: Acute (11) Type 2 diabetes mellitus treated with insulin: Problem details: A1C 6.3; not eating well. will hold insulin except for SSI as needed. Status: Acute (12) Kidney transplant recipient: Status: Acute (13) Liver transplant recipient: Status: Acute (14) SIRS (systemic inflammatory response syndrome): Problem details: febrile on 11/03. procalcitonin and crp elevated. not tachy or hypotension. +UC for pansensitive ecoli. no further fevers will stop IV zosyn and start oral Ceftin. Status: Acute (15) Elevated uric acid in blood: Problem details: - started 100mg allopurinol daily -much improved Status: Acute (16) Elevated bilirubin: Problem details: baseline about 1.5-1.7 from fall and imbolization resolved Status: Acute Subjective Date Seen: 11/04/22 Interval history: Daily Progress Note - Hospital Medicine Day #: 3 CC: fall at home, rhabdo, CDIFF diarrhea, electrolyte abnl, weakness, UTI OVERNIGHT UPDATES FROM STAFF & MED, LAB, IMAGING UPDATES 3 BM, diarrhea, in the last 12-18 hours. controlled. + CDIFF. no further fevers Afebrile in the last 24 hours. Blood pressure 131/52 Pulse 75 Respiratory rate 18 Pulse ox 96% on room air Remains mildly neutropenic. Hemoglobin had dropped essentially 3 points since his fall. Platelet count is borderline low at 102 PH reveals mild alkalosis today. Sodium, potassium, chloride are all normal. Creatinine is stable. Blood glucose 165. Ionized calcium is coming up. Phosphorus is normal GGT is normal I have added on LFTs and magnesium Total CK has dropped from 04/09 100 down to 1074 C reactive protein is down trending, procalcitonin is down trending E coli is pansensitive urine culture Blood cultures are negative Objective: He looks about the same; c/o of right sided chest wall pain and left hip pain. I reviewed ER evaluation. Only head CT and cpine CT completed with 1 view [address] chest, abd, pelvis. Vitals: see above Lungs: Clear. Cardiac: S1S2. skin: abrasions look no better, no worse. Disposition/Potential discharge - Likely to return to previous living situation. Total time is 35 minutes with greater than 50% spent in counseling and coordination of care. Exam Const: Vital Signs, click to edit/add: Vital Signs - 24 hr 11/03/22 15:00 11/03/22 15:00 11/03/22 15:00 Temperature 98.2 F Pulse Rate Pulse Rate [Right Pulse Oximeter] 71 71 Respiratory Rate 20 20 Blood Pressure [Le ft Arm] 135/70 Pulse Oximetry 96 96 Oxygen Delivery Me thod Room Air Room Air 11/03/22 15:00 11/03/22 19:00 11/03/22 22:55 Temperature 97.8 F 98.6 F Pulse Rate 64 Pulse Rate [Right Pulse Oximeter] 75 77 Respiratory Rate 20 20 Blood Pressure [Le ft Arm] 128/79 138/70 Pulse Oximetry 97 95 Oxygen Delivery Me thod Room Air Room Air 11/03/22 23:00 11/03/22 23:00 11/03/22 23:00 Temperature Pulse Rate 63 Pulse Rate [Right Pulse Oximeter] 77 Respiratory Rate 20 20 Blood Pressure [Le ft Arm] Pulse Oximetry 97 Oxygen Delivery Me thod Room Air 11/04/22 03:00 11/04/22 07:00 11/04/22 08:13 Temperature 98.9 F 98 F Pulse Rate Pulse Rate [Right Pulse Oximeter] 98 75 Respiratory Rate 20 18 Blood Pressure [Le ft Arm] 127/55 L 131/52 L Pulse Oximetry 97 94 96 Oxygen Delivery Me thod Room Air Room Air Room Air Labs Labs: Laboratory Results - last 24 hr 11/04/22 06:13 WBC 2.07 L RBC 2.52 L Hgb 8.3 L Hct 23.8 L MCV 94 MCH 33 MCHC 35 Plt Count 102 L Sodium 135 Potassium 3.6 Chloride 100 Carbon Dioxide 33 H BUN 20 Creatinine 1.3 Estimated Creat Clear 54.59 Estimated GFR 59 Glucose 165 H Calcium 7.6 L Ionized Calcium [place] 1.10 L Phosphorus 3.1 GGT 18 Total Creatine Kinase 1074 H C-Reactive Protein 13.7 H Procalcitonin 0.62 H
[2022-11-04 12:33] LABS: Albumin* 2.5 g/dL (3.3-5.0)
[2022-11-04 12:35] LABS: Bilirubin Direct* 0.1 mg/dL (0.0-0.5); Bilirubin Total* 0.8 mg/dL (0.1-1.5)
[2022-11-04 12:36] LABS: Alanine Aminotransferase* 47 U/L (4-50); Alkaline Phosphatase* 40 U/L (40-150); Aspartate Amino Transferase* 59 U/L (12-35); Magnesium* 1.7 mg/dL (1.5-2.6)
[2022-11-04 13:13] LABS: Basophils Percent Auto 0.4 % (0.0-3.0); Eosinophils Percent Auto 3.2 % (0.0-7.0); Hematocrit 26.4 % (37.0-53.0); Hemoglobin* 9.2 gm/dL (13.5-17.5); Immature Granulocytes Pct Auto 3.2 %; Lymphocytes Percent Auto 15.1 % (20-44); Mean Corpuscular HGB Conc 35 gm/dL (32-36); Mean Corpuscular Hemoglobin 33 pg (26-34); Mean Corpuscular Volume 93 fL (80-100); Monocytes Percent Auto 7.2 % (0.0-11.0); Neutrophils Percent Auto 70.9 % (42.0-72.0); Platelet Count* 59 K/uL (140-440); RDW Coefficient of Variation % 13.8 % (11.5-15.5); Red Blood Count 2.83 m/uL (4.30-5.90); White Blood Count* 2.51 K/uL (4.50-11.00)
[2022-11-04 13:40] LABS: Slide Review Reflex Yes
[2022-11-04 13:42] LABS: Slide Review Acceptable Review (Acceptable)
[2022-11-04] MEDS: NYSTATIN CREAM 30 GM 1 APPLIC TOPICAL (14:22)
[2022-11-04] MEDS: FUROSEMIDE 10 MG/ML inj 20 MG IVP (14:22)
--- NOTE | 2022-11-04 16:10 | PC.SOCIAL ---
Discharge planning- Received a phone call from Lashell in admissions at the [facility] ([phone]). [facility] will accept pt for admission tomorrow (11/05/22). Phone call to pt's brother. Pt's brother will plan to transport pt to the [facility] at 10:00 am. Provided update to charge nurse and [facility]. Social work will follow up as needed.
--- NOTE | 2022-11-04 18:31 | PC.NURSE ---
shift note: pt up to recliner this a.m for 30 mins for breakfast. pt had s/o of lower back pain 01/25. pt using aquak and medicated with oxycodone prn per d.o. Pt pain decreased to 3-4/10 from 01/25. Pt had audible insp wheezing, appeared puffy and had 300cc UO in [address] De La O notified and orders to give lasix. Pt UO 1700cc from dose of lasix. LS reassessed to be insp wheeze RML/LML anteriorly. pt had no audible wheezing at second assessment. Pt abd soft on palpation. drsg x2 to abd c/d/i. BS active x4. pt refused lunch but tolerated vanilla milk shake for supper. Rt hip drsg replaced. area to rt hip excoriated and weeping clr discharge. Lt l/e and rt l/e drsg c/d/i. IV to rt AC intact. Pt up 1/walker to bsc. Pt had 3 moderate loose stools and 1 small loose stool
[2022-11-04] MEDS: ENOXAPARIN 40 MG/0.4 ML INJ SUBCUT (20:14)
[2022-11-04] MEDS: DOXAZOSIN 4 MG TABLET PO (20:15)
[2022-11-04] MEDS: ATORVASTATIN 10 MG TABLET 20 MG PO (20:16)
[2022-11-04] MEDS: TACROLIMUS 0.5 MG CAPSULE 1.5 MG PO (20:17)
[2022-11-04] MEDS: SODIUM CHLORIDE 0.9 % (FLUSH) 10 ML SYRINGE 5 ML IVF (22:04)
[2022-11-05] VITALS (11 sets, daily range): BP systolic 126–166; BP diastolic 59–81; PULSE 60–86; RESP 16–20; TEMP 36.6–37; O2SAT 94–97
[2022-11-05] MEDS: ACETAMINOPHEN 325 MG TABLET PO (04:30)
[2022-11-05] MEDS: OXYCODONE 5 MG TABLET PO ×3 (04:31→13:00)
[2022-11-05] MEDS: OMEPRAZOLE 20 MG CAPSULE DR 40 MG PO (06:10)
[2022-11-05 06:38] LABS: HCO3 VBG 32 mmol/L (21-28); PCO2 VBG 46 mmHG (40-50); PO2 VBG 47.2 mmHG (25-47); pH VBG 7.443 (7.32-7.43)
[2022-11-05 07:00] LABS: Chloride* 99 mmol/L (96-114)
[2022-11-05 07:01] LABS: Potassium* 3.8 mmol/L (3.6-5.1); Sodium* 136 mmol/L (135-149)
[2022-11-05 07:03] LABS: Aspartate Amino Transferase* 43 U/L (12-35); Bilirubin Total* 1.1 mg/dL (0.1-1.5); Carbon Dioxide* 33 mmol/L (20-32); Creatinine* 1.1 mg/dL (0.5-1.5); Est. Creatinine Clearance* 64.52; Estimated Glomerular Filt Rate 72 ml/min
[2022-11-05 07:04] LABS: Alanine Aminotransferase* 46 U/L (4-50); Alkaline Phosphatase* 49 U/L (40-150); Blood Urea Nitrogen* 15 mg/dL (7-30); Calcium* 8.5 mg/dL (8.4-10.6); Creatine Kinase* 475 U/L (54-186); Glucose* 179 mg/dL (60-115); Total Protein* 5.6 g/dL (6.0-8.3)
[2022-11-05] MEDS: SODIUM BICARBONATE 650 MG TABLET 1300 MG PO ×2 (08:32→21:47)
[2022-11-05] MEDS: GABAPENTIN 600 MG TABLET PO ×2 (08:33→21:50)
[2022-11-05] MEDS: TACROLIMUS 0.5 MG CAPSULE 2 MG PO (08:33)
[2022-11-05] MEDS: TAMSULOSIN HCL 0.4 MG CAPSULE PO (08:33)
[2022-11-05] MEDS: CITALOPRAM HYDROBROMIDE 20 MG TABLET 40 MG PO (08:33)
[2022-11-05] MEDS: azaTHIOprine 50 MG TABLET 150 MG PO (08:33)
[2022-11-05] MEDS: MULTIVITAMIN/MINERALS 1 TABLET 1 TAB PO (08:34)
[2022-11-05] MEDS: VANCOMYCIN 125 MG CAPSULE PO ×4 (08:35→21:49)
[2022-11-05] MEDS: CLOPIDOGREL 75 MG TABLET PO (08:35)
[2022-11-05] MEDS: SODIUM CHLORIDE 1 GM TABLET PO ×3 (08:35→22:11)
[2022-11-05] MEDS: FERROUS SULFATE 325 MG TABLET PO (08:36)
[2022-11-05] MEDS: allopurinoL 100 MG TABLET PO (08:36)
[2022-11-05] MEDS: ASPIRIN 81 MG TABLET EC PO (08:38)
[2022-11-05] MEDS: NYSTATIN CREAM 30 GM 1 APPLIC TOPICAL ×3 (08:38→21:55)
[2022-11-05] MEDS: METOPROLOL TARTRATE 25 MG TABLET PO ×2 (08:41→21:58)
--- NOTE | 2022-11-05 10:37 | PC.SOCIAL ---
Addendum entered by UNRULY Rocha 11/05/22 14:29: Phone call to [facility] to check bed availability. Faxed referral to [phone]. Received an e-mail from Chela Bradshaw in admissions stated she received the referral and could potentially take pt on Tuesday for admission. Responded back to e-mail and informed pt needs placement still. Phone call to Chela at [facility] at [phone] and left a voicemail. Social Work will continue to follow up with [facility]. Original Note: Received a phone call from Lashell at the [facility] stating that they are unable to accept pt due to not having a private bathroom to accommodate pt's diagnosis of C-Diff. Provided information to nursing. Updated pt's brother. Social work will follow up on contacting other SNF's.
--- NOTE | 2022-11-05 12:52 | PM.IMPN1 ---
Progress Note: A&P Assessment and plan (1) Fall at home: Problem details: 11/01 - on the floor for at least [address] rash. Head CT, C-spine CT, chest abdomen pelvis CT and rib x-rays are all negative for acute injury. Continue superficial abrasion care with gentle cleansing and Mepilex. Continue physical therapy and occupational therapy Status: Acute (2) Weakness: Problem details: -bounceback admission; likely needs SNF - longer rehab program. -new reasons for weakness: fall with prolonged down time, ECOLI uti, CDIFF diarrhea Status: Acute (3) UTI (urinary tract infection): Problem details: pansensitive ecoli was on zosyn - transition to oral ceftin Status: Acute (4) Skin abrasion: Problem details: painful; not obviously infected oral ceftin and topical Mepilex are appropriate consider wound care consult if needed secondary to nonhealing Status: Acute (5) Acute hypokalemia: Problem details: resolved Status: Acute (6) Hypocalcemia: Problem details: Resolved. calcium chews ordered Status: Acute (7) Hyponatremia: Problem details: resolved. Status: Acute (8) Rhabdomyolysis: Problem details: 10K CK initially now 400. Completed IV hydration. Continues on salt tabs, calcium chews and previous home medications Status: Acute (9) Hypomagnesemia: Problem details: Resolved. normal 11/03 Status: Acute (10) ROSANA (acute kidney injury): Problem details: - improved during stay; discharge creatinine 1.2 with baseline is 1.3-1.6. -back to baseline Status: Acute (11) Type 2 diabetes mellitus treated with insulin: Problem details: A1C 6.3; not eating well. will hold insulin except for SSI as needed. Status: Acute (12) Kidney transplant recipient: Status: Acute (13) Liver transplant recipient: Status: Acute (14) SIRS (systemic inflammatory response syndrome): Problem details: febrile on 11/03. procalcitonin and crp elevated. not tachy or hypotension. +UC for pansensitive ecoli. no further fevers will stop IV zosyn and start oral Ceftin. Status: Acute (15) Elevated uric acid in blood: Problem details: - started 100mg allopurinol daily -much improved Status: Acute (16) Elevated bilirubin: Problem details: baseline about 1.5-1.7 from fall and imbolization resolved Status: Acute Subjective Date Seen: 11/05/22 Interval history: Daily Progress Note - Hospital Medicine #: 4 CC: fall at home, rhabdo, CDIFF diarrhea, electrolyte abnl, weakness, UTI OVERNIGHT UPDATES FROM STAFF & MED, LAB, IMAGING UPDATES 3 BM, diarrhea, in the last 12-18 hours. controlled. + CDIFF. no further fevers Yesterday during rounds he was still complaining significantly right-sided pain. Chest wall and right hip more specifically. I ordered a chest abdomen pelvis CT he had dropped 3 units of hemoglobin and I wanted to assure he did not have a traumatic hematoma, fractures that had not yet been identified. Fortunately, he had no acute findings from his fall. He continues to have some superficial bruising and the abrasions which cause him pain. These are all superficial. IV fluids are continued and his Renteria is discontinued today Afebrile in the last 24 hours. 154/79. Pulse 72. Respirations 18. Afebrile. 96% room air. Weight is down to 112.1 kilos (additional IV Lasix given yesterday) No new CBC drawn PH 7.4, no CO2 retention Electrolytes are all normal. Calcium has improved nicely. Total CK continues to downtrend. Four hundred seventy-five today. Inflammatory markers, while not checked today, were down trending at last check. C diff toxin B gene positive on 11/02/[address] yesterday as well as rib films yesterday 1. CHEST: Very small bilateral effusions. Trace bibasilar atelectasis. No pneumothorax. No mediastinal vascular injury. 2. ABDOMEN AND PELVIS: No acute posttraumatic finding. There are nonacute appearing nontraumatic findings as discussed in the body of the report. Please review the Clomid regarding these findings. Limited two-view study without obvious right rib fracture. Please review the report to the contemporaneously CT. E coli is pansensitive urine culture Blood cultures are negative Objective: He looks about the same; c/o of right sided chest wall pain and left hip pain. I reviewed ER evaluation. Only head CT and cpine CT completed with 1 view [address] get [address] chest, abd, pelvis. Vitals: see above Lungs: Clear. Cardiac: S1S2. skin: abrasions look no better, no worse. Disposition/Potential discharge - Likely to return to previous living situation. Total time is 35 minutes with greater than 50% spent in counseling and coordination of care. Exam Const: Vital Signs, click to edit/add: Vital Signs - 24 hr 11/04/22 17:37 11/04/22 18:10 11/04/22 18:10 Temperature 97.8 F Pulse Rate 77 Pulse Rate [Right Pulse Oximeter] 74 Respiratory Rate 18 18 Blood Pressure Blood Pressure [Le ft Arm] 146/64 H Pulse Oximetry 94 96 Oxygen Delivery Me thod Room Air Room Air 11/04/22 19:00 11/04/22 23:00 11/04/22 23:00 Temperature 98.4 F Pulse Rate 71 Pulse Rate [Right Pulse Oximeter] 77 Respiratory Rate 18 12 Blood Pressure Blood Pressure [Le ft Arm] 145/59 H Pulse Oximetry 94 Oxygen Delivery Me thod Room Air 11/04/22 23:00 11/04/22 23:00 11/05/22 03:00 Temperature 98.4 F 98.2 F Pulse Rate Pulse Rate [Right Pulse Oximeter] 73 73 Respiratory Rate 18 18 18 Blood Pressure Blood Pressure [Le ft Arm] 122/60 166/81 H Pulse Oximetry 94 94 94 Oxygen Delivery Me thod Room Air Room Air Room Air 11/05/22 08:22 11/05/22 09:22 11/05/22 11:55 Temperature 98.3 F 98.3 F 98.2 F Pulse Rate 71 Pulse Rate [Right Pulse Oximeter] 72 72 Respiratory Rate 16 16 18 Blood Pressure 126/65 Blood Pressure [Le ft Arm] 146/59 H 154/79 H Pulse Oximetry 97 96 Oxygen Delivery Me thod Room Air Room Air Labs Labs: Laboratory Results - last 24 hr 11/04/22 11/05/22 13:05 06:04 WBC 2.51 L RBC 2.83 L Hgb 9.2 L Hct 26.4 L MCV 93 MCH 33 MCHC 35 RDW Coeff of [place] 13.8 Plt Count 59 L Neut % (Auto) 70.9 Lymph % (Auto) 15.1 L [place] % (Auto) 7.2 Eos % (Auto) 3.2 Baso % (Auto) 0.4 Neut # (Auto) 1.80 Lymph # (Auto) 0.40 L [place] # (Auto) 0.20 Eos # (Auto) 0.10 Baso # (Auto) 0.00 Abs Immat Gran (auto) 0.10 Imm/Tot Granulo (auto) 3.2 Diff Slide Review Acceptable Review VBG pH 7.443 H VBG pCO2 46 VBG pO2 47.2 H VBG HCO3 32 H Sodium 136 Potassium 3.8 Chloride 99 Carbon Dioxide 33 H BUN 15 Creatinine 1.1 Estimated Creat Clear 64.52 Estimated GFR 72 Glucose 179 H Calcium 8.5 Total Bilirubin 1.1 AST 43 H ALT 46 Alkaline Phosphatase 49 Total Creatine Kinase 475 H Total Protein 5.6 L Albumin 3.0 L
--- NOTE | 2022-11-05 13:02 | P.IMPN_ITS ---
Subjective Date Seen: 10/29/22 Interval history: Daily Progress Note - Hospital Medici Date Seen: 10/29/22 Interval history: Daily Progress Note - Hospital Medicine Day #: 4 CC: abdominal pain, weakness, AMS Patient was admitted through the emergency room 2 nights ago with abdominal pain/diarrhea/vomiting, progressive weakness and poor self-care over the last 2 weeks worsening in the last 5 days, importantly noting his history of liver and renal transplants several years ago as well as hx of cholecystectomy. working dx: acute dehydration from AGE resulting in weakness and encephalopathy. On presentation he had 4+ ketones, was tachy and acidotic. Acute issues remain: Tachycardia, heart rate between 110 and 114, acute mental status change - slight improvement. weakness, mild bump in his troponin. teasing out poor med compliance. new urinary retention. He is currently not on antibiotics, pressors. on NS (was on D5 1st night). Blood sugars are improved from admission. Were holding his scheduled insulin and only using a sliding scale as his appetite has been quite poor. OVERNIGHT UPDATES FROM STAFF & MED, LAB, IMAGING UPDATES This morning he attempted his breakfast tray and only after a few bites he felt increasing abdominal pressure and pain. I am adding a lipase, blood gas, CRP, G GT to his labs this morning. His elevated bilirubin is about the same. Keeping in mind he has had a cholecystectomy. His lipase was normal on admission. He has got good bowel sounds. His initial CT was without contrast because of his renal function. However there was no acute findings. Afebrile Blood pressure 164/82 Pulse 78 Respirations 20 Pulse ox 98% on room air 99.29 kilos WBC count 2.55, hemoglobin 12.2, platelet count 126. No new blood gas drawn today. Most electrolytes are now all normal. Creatinine is 1.2. However, magnesium had actually dropped to 1.0. Creatinine is elevated but essentially plateaued No new imaging Objective: Lethargic, slow to respond. Flat affect. Vitals: see above Lungs: Clear. Abdomen: Obese, no guarding. Cardiac: S1S2. Neuro: Generalized weakness without lateralizing signs. Able to cross at the ankles however weak generally in lifting his legs against gravity. Assessment and plan (1) Metabolic encephalopathy: Problem details: This is part of the constellation of constitutional symptoms patient is experiencing at this time. This is possibly primary problem. Removing the fentanyl patch seems to have helped. Patient is improved this morning. Status: Acute (2) Abdominal pain, vomiting, and diarrhea: Problem details: -viral - maybe? Bowel obstruction - no. opioid withdrawal - unlikely. transplant rejection - unlikely. -CDIFF not sent as stooling has been quiescent -no fever -dehydration resolving -khanna placed -encourage nutrition, stop D5 Status: Acute (3) Weakness: Problem details: Profound weakness to the point he is no longer able to care for himself. 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 Continue anti rejection drugs and consult hepatic transplant team if not rapidly improving LFTs are stone cold normal. Bilirubin is just mildly elevated. This is lower on my list of concerns. Status: Acute (5) Type 2 diabetes mellitus treated with insulin: Problem details: A1C 6.3; not eating well. will hold insulin except for SSI as needed. Status: Acute (6) Sinus tachycardia: Problem details: Unclear. Stable. Hypertensive. staring metoprolol tartrate 25mg bid. Status: Acute (7) Elevated uric acid in blood: Problem details: starting 100mg allopurinol daily Status: Acute (8) Metabolic acidosis: Problem details: Much improved. Renal function is returning to his baseline. PH is normal. Status: Acute (9) ROSANA (acute kidney injury): Problem details: Much improved. His baseline is 1.3-1.6. Status: Acute Disposition/Potential discharge - Likely to return to previous living situation. Total time is 35 minutes with greater than 50% spent in counseling and coordination of care. Exam Const: Vital Signs, click to edit/add: Vital Signs - 24 hr 11/04/22 17:37 11/04/22 18:10 11/04/22 18:10 Temperature 97.8 F Pulse Rate 77 Pulse Rate [Right Pulse Oximeter] 74 Respiratory Rate 18 18 Blood Pressure Blood Pressure [Le ft Arm] 146/64 H Pulse Oximetry 94 96 Oxygen Delivery Me thod Room Air Room Air 11/04/22 19:00 11/04/22 23:00 11/04/22 23:00 Temperature 98.4 F Pulse Rate 71 Pulse Rate [Right Pulse Oximeter] 77 Respiratory Rate 18 12 Blood Pressure Blood Pressure [Le ft Arm] 145/59 H Pulse Oximetry 94 Oxygen Delivery Me thod Room Air 11/04/22 23:00 11/04/22 23:00 11/05/22 03:00 Temperature 98.4 F 98.2 F Pulse Rate Pulse Rate [Right Pulse Oximeter] 73 73 Respiratory Rate 18 18 18 Blood Pressure Blood Pressure [Le ft Arm] 122/60 166/81 H Pulse Oximetry 94 94 94 Oxygen Delivery Me thod Room Air Room Air Room Air 11/05/22 08:22 11/05/22 09:22 11/05/22 11:55 Temperature 98.3 F 98.3 F 98.2 F Pulse Rate 71 Pulse Rate [Right Pulse Oximeter] 72 72 Respiratory Rate 16 16 18 Blood Pressure 126/65 Blood Pressure [Le ft Arm] 146/59 H 154/79 H Pulse Oximetry 97 96 Oxygen Delivery Me thod Room Air Room Air Labs Labs: Laboratory Results - last 24 hr 11/04/22 11/05/22 13:05 06:04 WBC 2.51 L RBC 2.83 L Hgb 9.2 L Hct 26.4 L MCV 93 MCH 33 MCHC 35 RDW Coeff of Warren 13.8 Plt Count 59 L Neut % (Auto) 70.9 Lymph % (Auto) 15.1 L Forest % (Auto) 7.2 Eos % (Auto) 3.2 Baso % (Auto) 0.4 Neut # (Auto) 1.80 Lymph # (Auto) 0.40 L Forest # (Auto) 0.20 Eos # (Auto) 0.10 Baso # (Auto) 0.00 Abs Immat Gran (auto) 0.10 Imm/Tot Granulo (auto) 3.2 Diff Slide Review Acceptable Review VBG pH 7.443 H VBG pCO2 46 VBG pO2 47.2 H VBG HCO3 32 H Sodium 136 Potassium 3.8 Chloride 99 Carbon Dioxide 33 H BUN 15 Creatinine 1.1 Estimated Creat Clear 64.52 Estimated GFR 72 Glucose 179 H Calcium 8.5 Total Bilirubin 1.1 AST 43 H ALT 46 Alkaline Phosphatase 49 Total Creatine Kinase 475 H Total Protein 5.6 L Albumin 3.0 L
[2022-11-05] MEDS: SODIUM CHLORIDE 0.9 % (FLUSH) 10 ML SYRINGE 5 ML IVF ×2 (13:06→21:54)
--- NOTE | 2022-11-05 18:59 | PC.NURSE ---
Shift Summary: Patient pleasant and cooperative. Up with one assist, walker and gait belt. Vitals stable and WNL. Cath pulled this morning around 10am, bladder scan done around 1400 showed 158cc prior to voiding. patient has voided several times both continent and incont. Continues to have loose BM incont. Oxycodone given x2 for pain management. New mepilex placed over hip and abdomen.
[2022-11-05] MEDS: ATORVASTATIN 10 MG TABLET 20 MG PO (21:48)
[2022-11-05] MEDS: ENOXAPARIN 40 MG/0.4 ML INJ SUBCUT (21:50)
[2022-11-05] MEDS: DOXAZOSIN 4 MG TABLET PO (21:50)
[2022-11-05] MEDS: TACROLIMUS 0.5 MG CAPSULE 1.5 MG PO (21:54)
[2022-11-06] VITALS (10 sets, daily range): BP systolic 138–165; BP diastolic 72–88; PULSE 62–85; RESP 18; TEMP 36.8–36.9; O2SAT 94–98
--- NOTE | 2022-11-06 06:39 | PC.NURSE ---
Shift note: Pt is doing well. At 2100, pt vomited after taking his evening pills. He said he does not like the sodium chloride and does not want to it anymore. No pain, fever, cough, diarrhea reported tonight. Vitally stable. Pt had adequate sleep.
--- NOTE | 2022-11-06 07:42 | PM.IMPN1 ---
Progress Note: A&P Assessment and plan (1) Fall at home: Problem details: 11/01 - on the floor for at least 8 hours. -Rhabdo with CK >10,000. now less than 500. electrolytes, bilirubin, renal function all back to baseline -left sided superficial abrasions - continue gentle cleansing and Mepilex -Head CT, C-spine CT, chest abdomen pelvis CT and rib x-rays are all negative for acute injury. Continue physical therapy and occupational therapy Status: Acute (2) Rhabdomyolysis: Problem details: 10K CK initially now 400. Completed IV hydration. Continues calcium chews and previous home medications Status: Acute (3) Type 2 diabetes mellitus treated with insulin: Problem details: A1c 6.3. Blood sugars been running 191, 270, 221, 175. Covered with sliding scale. -Glucotrol 5 mg p.o. q.day starting 11/06 Status: Acute (4) UTI (urinary tract infection): Problem details: pansensitive datli was on zosyn - transition to oral ceftin Status: Acute (5) Skin abrasion: Problem details: painful; not obviously infected oral ceftin and topical Mepilex are appropriate consider wound care consult if needed secondary to nonhealing Status: Acute (6) HTN (hypertension): Problem details: continue current medications Status: Acute (7) Liver transplant recipient: Status: Acute (8) Kidney transplant recipient: Status: Acute Subjective Date Seen: 11/06/22 Interval history: Date Seen: 11/06/22 Interval history: Daily Progress Note - Hospital Medicine Day #: 5 CC: fall at home, rhabdo, CDIFF diarrhea, electrolyte abnl, weakness, UTI OVERNIGHT UPDATES FROM STAFF & MED, LAB, IMAGING UPDATES + CDIFF. no further fevers 11/04 during rounds he was still complaining significantly right-sided pain. Chest wall and right hip more specifically. I ordered a chest abdomen pelvis CT as he had dropped 3 units of hemoglobin and I wanted to assure he did not have a traumatic hematoma, fractures that had not yet been identified. Fortunately, he had no acute findings (other than the known rhabdo/abrasions/weakness) from his fall. He continues to have some superficial bruising and the abrasions which cause him pain. IV fluids and khanna discontinued 11/05 Afebrile in the last 24 hours. 154/79. Pulse 72. Respirations 18. Afebrile. 96% room air. Weight is down to 112.1 kilos (additional IV Lasix given yesterday) No new labs I followed the CK down from 10,000+ to less than 500 C diff toxin B gene positive on 11/02/2022 E coli is pansensitive urine culture Blood cultures are negative to date Objective: He looks about the same; pain is improved. sleeping when I come in. Vitals: see above Lungs: Clear. Cardiac: S1S2. skin: abrasions look no better, no worse. Disposition/Potential discharge - Likely to transfer to [facility] on 11/08 Total time is 35 minutes with greater than 50% spent in counseling and coordination of care. Exam Const: Vital Signs, click to edit/add: Vital Signs - 24 hr 11/05/22 08:22 11/05/22 09:00 11/05/22 09:22 Temperature 98.3 F 98.3 F Pulse Rate 71 Pulse Rate [Right Pulse Oximeter] 72 Respiratory Rate 16 18 16 Blood Pressure 126/65 Blood Pressure [Le ft Arm] 146/59 H Pulse Oximetry 97 96 Oxygen Delivery Me thod Room Air Room Air 11/05/22 11:55 11/05/22 13:00 11/05/22 15:40 Temperature 98.2 F 98.3 F Pulse Rate 60 Pulse Rate [Right Pulse Oximeter] 72 72 Respiratory Rate 18 20 Blood Pressure Blood Pressure [Le ft Arm] 154/79 H 142/65 H Pulse Oximetry 96 97 Oxygen Delivery Me thod Room Air Room Air 11/05/22 15:44 11/05/22 15:49 11/05/22 19:00 Temperature 98.6 F Pulse Rate 67 Pulse Rate [Right Pulse Oximeter] 80 Respiratory Rate 18 Blood Pressure Blood Pressure [Le ft Arm] 151/76 H Pulse Oximetry 97 96 Oxygen Delivery Me thod Room Air Room Air 11/05/22 23:00 11/05/22 23:00 11/05/22 23:00 Temperature Pulse Rate 67 Pulse Rate [Right Pulse Oximeter] 86 Respiratory Rate 18 18 Blood Pressure Blood Pressure [Le ft Arm] Pulse Oximetry 95 Oxygen Delivery Me thod Room Air 11/05/22 23:00 11/06/22 03:00 Temperature 97.9 F 98.5 F Pulse Rate Pulse Rate [Right Pulse Oximeter] 86 74 Respiratory Rate 18 18 Blood Pressure Blood Pressure [Le ft Arm] 157/75 H Pulse Oximetry 95 94 Oxygen Delivery Me thod Room Air Room Air
[2022-11-06] MEDS: OMEPRAZOLE 20 MG CAPSULE DR 40 MG PO (07:49)
[2022-11-06] MEDS: OXYCODONE 5 MG TABLET PO ×2 (09:07→17:36)
[2022-11-06] MEDS: glipiZIDE 5 MG TABLET PO (09:07)
[2022-11-06] MEDS: GABAPENTIN 600 MG TABLET PO ×2 (09:08→21:28)
[2022-11-06] MEDS: MULTIVITAMIN/MINERALS 1 TABLET 1 TAB PO (09:08)
[2022-11-06] MEDS: METOPROLOL TARTRATE 25 MG TABLET PO ×2 (09:08→21:26)
[2022-11-06] MEDS: TAMSULOSIN HCL 0.4 MG CAPSULE PO (09:08)
[2022-11-06] MEDS: allopurinoL 100 MG TABLET PO (09:08)
[2022-11-06] MEDS: VANCOMYCIN 125 MG CAPSULE PO ×4 (09:08→21:32)
[2022-11-06] MEDS: FERROUS SULFATE 325 MG TABLET PO (09:09)
[2022-11-06] MEDS: CITALOPRAM HYDROBROMIDE 20 MG TABLET 40 MG PO (09:09)
[2022-11-06] MEDS: NYSTATIN CREAM 30 GM 1 APPLIC TOPICAL ×3 (09:09→21:32)
[2022-11-06] MEDS: ASPIRIN 81 MG TABLET EC PO (09:09)
[2022-11-06] MEDS: SODIUM CHLORIDE 0.9 % (FLUSH) 10 ML SYRINGE 5 ML IVF ×2 (09:09→21:32)
[2022-11-06] MEDS: CLOPIDOGREL 75 MG TABLET PO (09:09)
[2022-11-06] MEDS: azaTHIOprine 50 MG TABLET 150 MG PO (09:15)
[2022-11-06] MEDS: TACROLIMUS 0.5 MG CAPSULE 2 MG PO (09:15)
--- NOTE | 2022-11-06 17:50 | PC.NURSE ---
Shift Summary: Patient pleasant and cooperative. [place] [facility] [place], walker and gait belt. Vitals stable and WNL. Tolerating regular diet well. Had x2 soft BM today. C/o generalized pain, managed with PRN oxycodone.
[2022-11-06] MEDS: ATORVASTATIN 10 MG TABLET 20 MG PO (21:26)
[2022-11-06] MEDS: ENOXAPARIN 40 MG/0.4 ML INJ SUBCUT (21:26)
[2022-11-06] MEDS: SODIUM BICARBONATE 650 MG TABLET 1300 MG PO (21:28)
[2022-11-06] MEDS: TACROLIMUS 0.5 MG CAPSULE 1.5 MG PO (21:28)
[2022-11-06] MEDS: DOXAZOSIN 4 MG TABLET PO (21:28)
[2022-11-07] VITALS (8 sets, daily range): BP systolic 108–151; BP diastolic 58–81; PULSE 68–81; RESP 16–18; TEMP 36.6–36.9; O2SAT 94–98
--- NOTE | 2022-11-07 06:16 | PC.NURSE ---
Shift note: Pt appears to regain strength and he is doing well with A1, walker and GB. No fever, cough, SOB and pain noted. Vitally stable. Pt had 2 small greenish soft BM tonight. Contact precaution maintained.
[2022-11-07] MEDS: OMEPRAZOLE 20 MG CAPSULE DR 40 MG PO (06:42)
[2022-11-07] MEDS: OXYCODONE 5 MG TABLET PO ×3 (08:17→17:52)
[2022-11-07] MEDS: TACROLIMUS 0.5 MG CAPSULE 2 MG PO (09:01)
[2022-11-07] MEDS: VANCOMYCIN 125 MG CAPSULE PO ×4 (09:02→20:56)
[2022-11-07] MEDS: TAMSULOSIN HCL 0.4 MG CAPSULE PO (09:02)
[2022-11-07] MEDS: ASPIRIN 81 MG TABLET EC PO (09:02)
[2022-11-07] MEDS: CITALOPRAM HYDROBROMIDE 20 MG TABLET 40 MG PO (09:02)
[2022-11-07] MEDS: azaTHIOprine 50 MG TABLET 150 MG PO (09:02)
[2022-11-07] MEDS: GABAPENTIN 600 MG TABLET PO ×2 (09:02→20:56)
[2022-11-07] MEDS: allopurinoL 100 MG TABLET PO (09:02)
[2022-11-07] MEDS: CLOPIDOGREL 75 MG TABLET PO (09:02)
[2022-11-07] MEDS: FERROUS SULFATE 325 MG TABLET PO (09:02)
[2022-11-07] MEDS: MULTIVITAMIN/MINERALS 1 TABLET 1 TAB PO (09:03)
[2022-11-07] MEDS: glipiZIDE 5 MG TABLET PO (09:03)
[2022-11-07] MEDS: SODIUM CHLORIDE 0.9 % (FLUSH) 10 ML SYRINGE 5 ML IVF ×2 (09:03→20:59)
[2022-11-07] MEDS: METOPROLOL TARTRATE 25 MG TABLET PO ×2 (09:03→20:57)
[2022-11-07] MEDS: NYSTATIN CREAM 30 GM 1 APPLIC TOPICAL ×3 (09:04→20:57)
--- NOTE | 2022-11-07 11:19 | PM.IMPN1 ---
Progress Note: A&P Assessment and plan (1) Fall at home: Problem details: 11/01 - on the floor for at least 8 hours. -Rhabdo with CK >10,000, trended down with IV fluids; LFTs and renal function back to baseline -left sided superficial abrasions - continue gentle cleansing and Mepilex -Head CT, C-spine CT, chest abdomen pelvis CT and rib x-rays in ED were all negative for acute injury -therapies following Status: Acute (2) Rhabdomyolysis: Problem details: -resolved with IV fluids Status: Resolved (3) Type 2 diabetes mellitus treated with insulin: Problem details: A1c 6.3, covered with sliding scale. -Glucotrol 5 mg p.o. q.day starting 11/06 Status: Acute (4) UTI (urinary tract infection): Problem details: - initially on zosyn, transitioned to oral ceftin Status: Acute (5) HTN (hypertension): Problem details: - stable on home medications Status: Acute (6) Liver transplant recipient: Problem details: - quiescent, stable on home medications, follows with [facility] as outpatient Status: Acute (7) Kidney transplant recipient: Problem details: - quiescent Status: Acute Plan - per above - Lovenox for prophylaxis - likely discharge to SNF on 11/08 Subjective Date Seen: 11/07/22 Interval history: Lito was readmitted to the hospital on 11/02 for rhabdomyolysis after a fall at home; he had been discharged home from the hospital the day prior. Since admission, has tested + for C diff, + urine culture for pansensitive E Coli. No current UTI symptoms and diarrhea has significantly improved on oral Vancomycin. He has no concerns for hospitalist team this morning. We are awaiting SNF placement. Exam Narrative: Exam Narrative: GEN: Alert and oriented, laying comfortably in bed, nontoxic HEENT: EOMIs bilaterally, no scleral icterus CV: Pulse palpates as regular rate and rhythm R: Breathing comfortably without tachypnea Skin: No concerning skin lesions or rashes on exposed skin Neuro: Nonfocal Psych: Appropriate Const: Vital Signs, click to edit/add: Vital Signs - 24 hr 11/06/22 15:00 11/06/22 15:29 11/06/22 15:31 Temperature 98.2 F Pulse Rate 69 Pulse Rate [Right Pulse Oximeter] 71 Respiratory Rate 18 18 Blood Pressure [Le ft Arm] 138/81 Blood Pressure [Ri ght Arm] Pulse Oximetry 97 97 Oxygen Delivery Me thod Room Air Room Air 11/06/22 19:00 11/06/22 23:00 11/06/22 23:00 Temperature 98.4 F Pulse Rate 62 Pulse Rate [Right Pulse Oximeter] 75 71 Respiratory Rate 18 18 Blood Pressure [Le ft Arm] 143/72 H Blood Pressure [Ri ght Arm] Pulse Oximetry 94 Oxygen Delivery Me thod Room Air 11/06/22 23:00 11/06/22 23:00 11/07/22 03:00 Temperature 98.4 F 97.9 F Pulse Rate Pulse Rate [Right Pulse Oximeter] 71 71 Respiratory Rate 18 18 18 Blood Pressure [Le ft Arm] 161/75 H 151/81 H Blood Pressure [Ri ght Arm] Pulse Oximetry 94 94 94 Oxygen Delivery Me thod Room Air Room Air Room Air 11/07/22 08:19 11/07/22 08:24 11/07/22 10:08 Temperature 98.4 F Pulse Rate 75 Pulse Rate [Right Pulse Oximeter] 77 Respiratory Rate 18 18 Blood Pressure [Le ft Arm] Blood Pressure [Ri ght Arm] 144/81 H Pulse Oximetry 96 96 Oxygen Delivery Me thod Room Air Room Air
--- NOTE | 2022-11-07 17:27 | PC.NURSE ---
Shift Summary: Patient pleasant and cooperative. Up with SBA, gait belt and walker. Tolerating regular diet well, vitals stable and WNL. C/O some lower back pain and right hip pain today, PRN oxycodone given with relief. Dressings over right side of body changed. Patient has been continent of bowel and incontinent of bladder. D/C pvc monitor today.
[2022-11-07] MEDS: DOXAZOSIN 4 MG TABLET PO (20:54)
[2022-11-07] MEDS: SODIUM BICARBONATE 650 MG TABLET 1300 MG PO (20:54)
[2022-11-07] MEDS: TACROLIMUS 0.5 MG CAPSULE 1.5 MG PO (20:55)
[2022-11-07] MEDS: ATORVASTATIN 10 MG TABLET 20 MG PO (20:56)
[2022-11-07] MEDS: ENOXAPARIN 40 MG/0.4 ML INJ SUBCUT (20:58)
[2022-11-07] MEDS: ACETAMINOPHEN 325 MG TABLET PO (21:02)
[2022-11-08 03:00] VITALS: BP 129/81; PULSE 65; RESP 16; TEMP 36.8; O2SAT 97
--- NOTE | 2022-11-08 06:11 | PC.NURSE ---
Shift note: Pt is doing well. Appetite improved, pain level reduced rated between 3 and 5. Pt only asked for Tylenol for headache. Pt had 1 large formed BM tonight. No fever and vitally stable. Contact precaution maintained.
[2022-11-08] MEDS: OMEPRAZOLE 20 MG CAPSULE DR 40 MG PO (06:51)
[2022-11-08 07:00] VITALS: BP 150/72; PULSE 66; RESP 18; O2SAT 98
[2022-11-08] MEDS: allopurinoL 100 MG TABLET PO (08:52)
[2022-11-08] MEDS: glipiZIDE 5 MG TABLET PO (08:52)
[2022-11-08] MEDS: CLOPIDOGREL 75 MG TABLET PO (08:53)
[2022-11-08] MEDS: CITALOPRAM HYDROBROMIDE 20 MG TABLET 40 MG PO (08:53)
[2022-11-08] MEDS: FERROUS SULFATE 325 MG TABLET PO (08:53)
[2022-11-08] MEDS: ASPIRIN 81 MG TABLET EC PO (08:53)
[2022-11-08] MEDS: azaTHIOprine 50 MG TABLET 150 MG PO (08:53)
[2022-11-08] MEDS: NYSTATIN CREAM 30 GM 1 APPLIC TOPICAL (08:54)
[2022-11-08] MEDS: MULTIVITAMIN/MINERALS 1 TABLET 1 TAB PO (08:54)
[2022-11-08] MEDS: GABAPENTIN 600 MG TABLET PO (08:54)
[2022-11-08] MEDS: SODIUM BICARBONATE 650 MG TABLET 1300 MG PO (08:54)
[2022-11-08] MEDS: METOPROLOL TARTRATE 25 MG TABLET PO (08:54)
[2022-11-08] MEDS: ACETAMINOPHEN 325 MG TABLET PO (08:55)
[2022-11-08] MEDS: VANCOMYCIN 125 MG CAPSULE PO ×2 (08:55→13:31)
[2022-11-08] MEDS: TAMSULOSIN HCL 0.4 MG CAPSULE PO (08:55)
[2022-11-08] MEDS: TACROLIMUS 0.5 MG CAPSULE 2 MG PO (08:55)
[2022-11-08] MEDS: OXYCODONE 5 MG TABLET PO (09:58)
[2022-11-08 11:00] VITALS: BP 110/66; PULSE 64; RESP 18; O2SAT 98
--- NOTE | 2022-11-08 11:09 | PM.DS1 ---
DS: Providers Provider Date Seen: 11/08/22 Date of admission: 11/02/22 01:19 Primary care physician: Rubén Boyle MD Admitting Clinician: Ashlyn Ch MD Consults: OT, PT, SW Attending Physician on discharge: Tara Acevedo MD Date of Discharge: 11/08/22 DS: Diagnosis Discharge Diagnosis (1) Fall at home: Status: Acute Problem details: - 11/01 - on the floor for at least 8 hours. - Rhabdomyolysis on admission: CK >10,000, trended down with IV fluids; LFTs and renal function back to baseline - Head CT, C-spine CT, chest abdomen pelvis CT and rib x-rays in ED were all negative for acute injury - therapies followed during stay (2) Rhabdomyolysis: Status: Resolved Problem details: - resolved with IV fluids (3) C. difficile diarrhea: Status: Acute Problem details: - + 11/02, treated with oral Vancomycin (4) Type 2 diabetes mellitus treated with insulin: Status: Acute Problem details: - A1c 6.3, covered with sliding scale. - Glucotrol 5 mg p.o. q.day started 11/06 (5) UTI (urinary tract infection): Status: Acute Problem details: - initially on zosyn, transitioned to oral ceftin (6) HTN (hypertension): Status: Acute Problem details: - stable on home medications (7) Liver transplant recipient: Status: Acute Problem details: - quiescent, stable on home medications, follows with [facility] as outpatient (8) Kidney transplant recipient: Status: Acute Problem details: - quiescent DS: Summary Hospital Course Hospital Course: Patient is a 72-year-old male who fell at home and was unable to get up (this happened 1 day after being discharged home from the hospital for gastroenteritis). During stay, he was found to have diarrhea and C diff was positive. He improved with oral vancomycin. Was also noted to have a UTI and was treated with Ceftin. Patient has multiple comorbidities which are noted above, remained stable throughout stay. Lito was followed by therapies and SNF recommended. He was medically appropriate to discharge on 11/08/22. Status at Discharge Overall status at discharge: patient is progressing back to baseline Time Spent with Patient Time attestation: Total time spent providing and/or coordinating discharge services: Time spent: Greater than 30 minutes Specific discharge activities: Medication reconciliation, patient education, care coordination Exam Narrative: Exam Narrative: GEN: Alert and laying comfortably in bed, nontoxic HEENT: EOMIs bilaterally, no scleral icterus, mild pallor CV: RRR, soft systolic murmur without concerning features R: LCTA bilaterally, no wheezing, air movement adequate Skin: No concerning skin lesions or rashes on exposed skin Neuro: Nonfocal Psych: Appropriate Const: Vital Signs, click to edit/add: Vital Signs - 24 hr 11/07/22 15:03 11/07/22 15:03 11/07/22 19:00 Temperature 98 F 98.2 F Pulse Rate [Right Pulse Oximeter] 68 75 Respiratory Rate 16 16 16 Blood Pressure [Le ft Arm] 128/63 108/58 L Pulse Oximetry 98 98 96 Oxygen Delivery Me thod Room Air Room Air Room Air 11/07/22 23:00 11/07/22 23:00 11/08/22 03:00 Temperature 97.9 F 98.2 F Pulse Rate [Right Pulse Oximeter] 81 65 Respiratory Rate 16 16 16 Blood Pressure [Le ft Arm] 112/61 129/81 Pulse Oximetry 96 96 97 Oxygen Delivery Me thod Room Air Room Air Room Air Discharge Plan Discharge Disposition: [facility] Date of Admission: 11/02/22 01:19 Attending Provider on Discharge: Tara Acevedo Primary Care Provider: Rubén Boyle Condition: Unchanged Anticipated Discharge Date/Time: 11/08/22 10:57 Discharge Medications: New cefuroxime axetil 500 mg Tablet 500 mg PO BIDWM Qty: 6 0RF vancomycin 125 mg Capsule 125 mg PO QID 8 Days Qty: 32 0RF glipizide 5 mg Tablet 5 mg PO DAILYWM Qty: 30 0RF oxycodone 5 mg tablet 5 mg PO Q6H PRN (Reason: pain) Qty: 20 0RF sodium chloride 1,000 mg tablet,soluble 1,000 mg PO BID Qty: 60 0RF Continued atorvastatin 20 mg tablet 20 mg PO HS Qty: 90 3RF citalopram [Celexa] 40 mg tablet 40 mg PO DAILY Qty: 90 3RF gabapentin 600 mg tablet 600 mg PO BID Qty: 180 3RF insulin aspart U-100 100 unit/mL solution 100 unit subcut DAILY Patient Comments: VIA INSULIN PUMP clopidogrel 75 mg tablet 75 mg PO DAILY aspirin [Adult Aspirin Regimen] 81 mg tablet,delayed release (DR/EC) 81 mg PO DAILY azathioprine 50 mg tablet 150 mg PO DAILY tacrolimus 0.5 mg capsule 1.5 - 2 mg PO Q12H Patient Comments: takes 4 CAPS (2MG) AM and 3 CAPS (1.5MG) PM ferrous sulfate 325 mg (65 mg iron) tablet 325 mg PO DAILY furosemide 40 mg tablet 40 mg PO QAM PRN tamsulosin 0.4 mg capsule 0.4 mg PO DAILY sodium bicarbonate 650 mg tablet 1,300 mg PO BID omeprazole 20 mg capsule,delayed release(DR/EC) 40 mg PO DAILY doxazosin 2 mg tablet 4 mg PO HS cholecalciferol (vitamin D3) 25 mcg (1,000 unit) capsule 4,000 unit PO DAILY allopurinol 100 mg Tablet 100 mg PO DAILY Qty: 30 0RF metoprolol tartrate 25 mg Tablet 25 mg PO BID Qty: 60 0RF diphenoxylate-atropine [Lomotil] 2.5-0.025 mg tablet 2 tab PO TID PRN (Reason: diarrhea) Qty: 540 1RF multivitamin Tablet 1 tab PO DAILY Qty: 90 3RF Discontinued oxycodone 10 mg tablet 10 mg PO TID PRN (Reason: pain) Qty: 30 0RF Patient Comments: 10 MG PO TID PRN For Severe Pain Discharge Orders: Discharge Order (Routine); Ordered 11/08/22 Ordered By: Tara Acevedo Additional Instructions: CDIFF precautions; oral vancomycin for the next 8 days UTI - continue antibiotics He had scans/rib xrays on 11/05 - no further injury or internal bleeding identified from the fall. He has abrasions and needs to keep moving. They only need to be cleaned and covered for his comfort as they are just abrasions and will heal fine. Activity Level: Activity as Tolerated Activity Detail: per PT/OT Discharge Diet: Regular Follow Up Appointments: [facility] [Outside] - None () [facility] [Outside] (Patient being discharged to [facility] Rubén Boyle MD [Primary Care Provider] - Forms: [facility] Info Instructions Wound Care: Clean abrasions every 1-2 days Ostomy Care: n/a Admit to: SNF Discharge Potential: Fair Length of Stay: 30-90 days Can use facility standing orders?: Yes Code Status: Full Code Rehab Potential: Fair Therapy: Physical Therapy and Occupational Therapy Therapy Orders: Evaluate and Treat Oxygen: No Urinary Catheter: No Lab Orders: CBC and CMP in 10 days Orders are good >30 days: Yes Signature: Tara Acevedo MD
--- NOTE | 2022-11-08 12:19 | PC.SOCIAL ---
Discharge planning- Received phone call from Chela in admissions at [facility]. Pt was accepted for admission for today. Phone call to pt's brother, Michael, to provide update. Michael is unable to provide transportation. Michael has an emergency with his , so he is not able to assist. Met with pt and provided update. Pt is willing to private pay for non-emergency EMS. Pt signed paperwork for EMS rate. Provided update to charge nurse. Charge nurse called EMS to set up ride. Ride will come between 12:45pm and 1:30pm. Completed Preadmission screening. Confirmation #[id number]. Social work will follow up as needed.
[2022-11-08 15:00] VITALS: BP 110/66; PULSE 64; RESP 18; TEMP 36.5
--- NOTE | 2022-11-08 15:04 | PC.NURSE ---
Nursing Care Hours: [id number] Pt this shift calm and cooperative with cares, alert and oriented. C/o pain to back 5/10 unrelieved by Tylenol, half dose oxycodone given. Mepilex to various wounds. Pt refused breakfast so insulin held. Ate lunch and insulin given for hyperglycemia. Declined bathroom every time auto service writer in room. IV removed for discharge, report given to [facility]. EMS transfer. Pt left in stable condition.
== END 2022-11-08 13:35 | DRG 565 ==
LOC: ED 23:10 → MEDSURG 11-02 00:46
PROVIDERS: Family Medicine; Internal Medicine; Admitting Provider Family Medicine; Emergency Provider Family Medicine; PCP Family Medicine; Visit Provider Family Medicine
DX: T79.6XXA Traumatic ischemia of muscle, initial encounter (principal); A04.72 Enterocolitis due to Clostridium difficile, not specified as recurrent; N17.9 Acute kidney failure, unspecified; N39.0 Urinary tract infection, site not specified; Z94.4 Liver transplant status; Z94.0 Kidney transplant status; I13.0 Hypertensive heart and chronic kidney disease with heart failure and stage 1 through stage 4 chronic kidney disease, or unspecified chronic kidney disease; F32.1 Major depressive disorder, single episode, moderate; S20.211A Contusion of right front wall of thorax, initial encounter; W19.XXXA Unspecified fall, initial encounter; Y92.009 Unspecified place in unspecified non-institutional (private) residence as the place of occurrence of the external cause; B36.8 Other specified superficial mycoses; E83.42 Hypomagnesemia; Z79.4 Long term (current) use of insulin; B96.20 Unspecified Escherichia coli [E. coli] as the cause of diseases classified elsewhere; E83.51 Hypocalcemia; R53.1 Weakness; E87.6 Hypokalemia; R74.01 Elevation of levels of liver transaminase levels; E11.40 Type 2 diabetes mellitus with diabetic neuropathy, unspecified; I50.9 Heart failure, unspecified; N18.9 Chronic kidney disease, unspecified; E11.22 Type 2 diabetes mellitus with diabetic chronic kidney disease; I34.0 Nonrheumatic mitral (valve) insufficiency; D64.9 Anemia, unspecified; G89.4 Chronic pain syndrome; E78.5 Hyperlipidemia, unspecified; N40.0 Benign prostatic hyperplasia without lower urinary tract symptoms; Z95.5 Presence of coronary angioplasty implant and graft; K21.9 Gastro-esophageal reflux disease without esophagitis
CPT/HCPCS: 36415; 51798; 70450; 71045; 71100; 71260; 72125; 74177; 80048; 80053; 80076; 81001; 81003; 81015; 82077; 82248; 82330; 82550; 82803; 82962; 82977; 83605; 83690; 83735; 83880; 84100; 84145; 84484; 84550; 85025; 85027; 86140; 87040; 87070; 87086; 87186; 87493; 93005; 97110; 97116; 97162; 97165; 97530; 97535; 99285; 99291; A9153; A9270; J0610; J1644; J1650; J1940; J2543; J3475; J3480; J7030; J7070; J7500; J7507; Q9967

== ENCOUNTER 2022-11-08 13:30 | Outpatient (CLI) | payer MEDICARE, BC, SELFPAY | END 2022-11-08 13:31 | disposition home or self-care (01) | LOC: AMB 11-09 14:58 | PROVIDERS: PCP Family Medicine; Visit Provider Family Medicine | DX: M62.82 Rhabdomyolysis (principal); A04.72 Enterocolitis due to Clostridium difficile, not specified as recurrent; N18.9 Chronic kidney disease, unspecified | CPT/HCPCS: A0425; A0428 ==

== ENCOUNTER 2022-11-18 10:25 | Outpatient (CLI) | payer MEDICARE, BC, SELFPAY | END 2022-11-18 10:26 | disposition home or self-care (01) | PROVIDERS: PCP Family Medicine; Visit Provider Family Medicine | DX: Z94.4 Liver transplant status (principal); Z79.899 Other long term (current) drug therapy | CPT/HCPCS: 80048; 83735; 85025 ==

== ENCOUNTER 2022-11-26 12:37 | Inpatient (IN) | payer MEDICARE, BC, SELFPAY ==
[2022-11-26] VITALS (33 sets, daily range): BP systolic 85–126; BP diastolic 46–75; PULSE 88–141; RESP 16–20; TEMP 36.6–37.2; O2SAT 92–100; BMI 32.8
--- NOTE | 2022-11-26 12:57 | CRLHL7_ITS ---
For Patients: As a result of the Century Cures Act, medical imaging exams and procedure reports are released immediately into your electronic medical record. You may view this report before your referring provider. If you have questions, please contact your health care provider. INDICATION: SOB TECHNIQUE: Chest 2 views. COMPARISON: 11/01/22 FINDINGS: Cardiovascular and mediastinum: Heart size and vasculature are normal in caliber and appearance. Mediastinum is within normal limits. Lungs and pleural spaces: Lungs are clear. No sign of infiltrate or mass. No sign of pleural effusion. No pneumothorax. Bones and soft tissues: No significant findings. IMPRESSION: Unremarkable chest. Dictated by: Rubén Leon MD @ 11/26/2022 13:44:22 (Electronically Signed)
--- NOTE | 2022-11-26 12:59 | ED.GENADULT ---
HPI - General Adult General Chief complaint: Weakness Stated complaint: weakness Time Seen by Provider: 11/26/22 12:43 Source: patient Limitations: no limitations History of Present Illness HPI narrative: 72-year-old male, lives feel at home by himself, presenting with weakness. States he has been getting weaker for the last several days but today he was so weak that he could not walk. He denies fevers or chills, complains of a mild cough, denies chest pain or abdominal pain. He presents incontinent of urine and feces, feces all the way down his leg to his feet. He denies vomiting. He states he has had a decreased appetite and has been drinking water. He complains of weakness of the bilateral lower extremity and just generalized weakness. He denies 1 side being weaker than the other. He does not have a headache. Related Data Home Medications Medication Instructions Recorded Confirmed aspirin 81 mg tablet,delayed 81 mg PO DAILY 10/22/21 11/18/22 release (Adult Aspirin Regimen) azathioprine 50 mg tablet 150 mg PO DAILY 10/22/21 11/18/22 insulin aspart U-100 100 unit/mL 100 unit subcut DAILY 04/22/22 11/18/22 subcutaneous solution tacrolimus 0.5 mg capsule, 1.5 - 2 mg PO Q12H 05/17/22 11/18/22 immediate-release cholecalciferol (vitamin D3) 25 4,000 unit PO DAILY 10/26/22 11/18/22 mcg (1,000 unit) capsule doxazosin 2 mg tablet 4 mg PO HS 10/26/22 11/18/22 ferrous sulfate 325 mg (65 mg 325 mg PO DAILY 10/26/22 11/18/22 iron) tablet furosemide 40 mg tablet 40 mg PO QAM PRN 10/26/22 11/18/22 omeprazole 20 mg capsule,delayed 40 mg PO DAILY 10/26/22 11/18/22 release tamsulosin 0.4 mg capsule 0.4 mg PO DAILY 10/26/22 11/18/22 clopidogrel 75 mg tablet 75 mg PO DAILY 11/01/22 11/18/22 calcium carbonate 500 mg calcium 500 mg PO BID 11/18/22 11/18/22 (1,250 mg) tablet Previous Rx's Medication Instructions Recorded atorvastatin 20 mg tablet 20 mg PO HS #90 tabs 11/09/21 citalopram 40 mg tablet (Celexa) 40 mg PO DAILY #90 tabs 11/09/21 gabapentin 600 mg tablet 600 mg PO BID #180 tabs 11/09/21 multivitamin 1 tab PO DAILY #90 tabs 08/10/22 allopurinol 100 mg tablet 100 mg PO DAILY #30 tabs 10/29/22 metoprolol tartrate 25 mg tablet 25 mg PO BID #60 tabs 10/29/22 cefuroxime axetil 500 mg tablet 500 mg PO BIDWM #6 tabs 11/08/22 glipizide 5 mg tablet 5 mg PO DAILYWM #30 tabs 11/08/22 sodium chloride 1,000 mg soluble 1,000 mg PO BID electrolyte 11/08/22 tablet replenishment #60 tabs vancomycin 125 mg capsule 125 mg PO QID 8 days #32 caps 11/08/22 oxycodone 5 mg tablet 5 mg PO Q6H PRN pain #20 tabs 11/16/22 fentanyl 25 mcg/hr transdermal 1 patch transdermal Q48H #15 ea 11/19/22 patch Allergies Allergy/AdvReac Type Severity Reaction Status Date / Time phytonadione (vitamin K1) Allergy Intermediate Unknown Verified 11/18/22 09:42 Review of Systems Status of ROS: Reports: 10 or more systems reviewed and unremarkable except as noted in History and below [facility] Medical History Type 2 diabetes mellitus treated with insulin ?E11.9 - Type 2 diabetes mellitus without complications (ICD-10) ?Z79.4 - salvage determiner (current) use of insulin (ICD-10) Fall at home ?W19.XXXA - Unspecified fall, initial encounter (ICD-10) ?Y92.009 - Unspecified place in unspecified non-institutional (private) residence as the place of occurrence of the external cause (ICD-10) Elevated uric acid in blood ?E79.0 - Hyperuricemia without signs of inflammatory arthritis and tophaceous disease (ICD-10) Weakness ?R53.1 - Weakness (ICD-10) C. difficile diarrhea ?A04.72 - Enterocolitis due to Clostridium difficile, not specified as recurrent (ICD-10) Elevated bilirubin ?R17 - Unspecified jaundice (ICD-10) Metabolic encephalopathy ?G93.41 - Metabolic encephalopathy (ICD-10) Low back pain ?M54.50 - Low back pain, unspecified (ICD-10) Vitamin D deficiency ?E55.9 - Vitamin D deficiency, unspecified (ICD-10) History of transcatheter aortic valve replacement (TAVR) ?Z95.2 - Presence of prosthetic heart valve (ICD-10) BPH (benign prostatic hyperplasia) ?N40.0 - Benign prostatic hyperplasia without lower urinary tract symptoms (ICD-10) History of non-anemic folic acid deficiency ?Z86.39 - Personal history of other endocrine, nutritional and metabolic disease (ICD-10) History of colonic polyps (05/10/13) ?Z86.010 - Personal history of colonic polyps (ICD-10) Folic acid deficiency (01/22/16) ?E53.8 - Deficiency of other specified B group vitamins (ICD-10) Erectile dysfunction ?N52.9 - Male erectile dysfunction, unspecified (ICD-10) Current moderate episode of major depressive disorder without prior episode (01/14/17) ?F32.1 - Major depressive disorder, single episode, moderate (ICD-10) Controlled substance agreement signed (04/19/18) ?Z79.899 - Other salvage determiner (current) drug therapy (ICD-10) Pancytopenia ?D61.818 - Other pancytopenia (ICD-10) Pain syndrome, chronic ?G89.4 - Chronic pain syndrome (ICD-10) Chronic kidney disease (CKD) ?N18.9 - Chronic kidney disease, unspecified (ICD-10) History of ETOH abuse ?F10.11 - Alcohol abuse, in remission (ICD-10) CHF (congestive heart failure) ?I50.9 - Heart failure, unspecified (ICD-10) Mitral regurgitation ?I34.0 - Nonrheumatic mitral (valve) insufficiency (ICD-10) Diabetic neuropathy ?E11.40 - Type 2 diabetes mellitus with diabetic neuropathy, unspecified (ICD-10) GERD (gastroesophageal reflux disease) ?K21.9 - Gastro-esophageal reflux disease without esophagitis (ICD-10) Hyperlipidemia ?E78.5 - Hyperlipidemia, unspecified (ICD-10) HTN (hypertension) ?I10 - Essential (primary) hypertension (ICD-10) Diverticulosis ?K57.90 - Diverticulosis of intestine, part unspecified, without perforation or abscess without bleeding (ICD-10) Surgical History Liver transplant recipient ?Z94.4 - Liver transplant status (ICD-10) History of coronary artery stent placement ?Z95.5 - Presence of coronary angioplasty implant and graft (ICD-10) S/P TAVR (transcatheter aortic valve replacement) ?Z95.2 - Presence of prosthetic heart valve (ICD-10) History of liver transplant (07/10/16) ?Z94.4 - Liver transplant status (ICD-10) History of decompression of ulnar nerve (1979) ?Z98.890 - Other specified postprocedural states (ICD-10) History of cataract extraction (2017) ?Z98.49 - Cataract extraction status, unspecified eye (ICD-10) 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 He lives by himself. He functions independently. He is retired. Remote history of smoking having quit about 20 years ago after a 10 pack year history. 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 Last drank in 2016 What is your current living situation?: I presently have a place to live Problems where you live: no known problems Problems where you live details: N/A In the past 12 months, utilities in danger of being shut off: no In the past 12 mos, have been you worried that your food would run out before you had money to buy more?: never true In the past 12 mos, the food you bought just didn't last and you didn't have money to buy more?: never true Highest level of school completed/degree received: high school graduate Smoking Status: Never smoker Do you use any of these nicotine containing products: None Second hand tobacco smoke exposure: No How often do you have a drink containing alcohol: never How often do you have six or more drinks on one occasion: Never AUDIT-C Alcohol total score: 0 Non-prescribed substance use: denies use Caffeine: Yes How often does anyone, including family, friends and others, physically hurt you: never How often does anyone, including family, friends and others, insult or talk down to you: never How often does anyone, including family, friends and others, threaten you with harm: never How often does anyone, including family, friends and others, scream or curse at you: never Little interest or pleasure in doing things: more than half the days Feeling down, depressed, or hopeless: more than half the days service: No Exam Narrative: Exam Narrative: Overweight patient in no acute distress. Alert and oriented x3. Answers questions appropriately. Mood and affect are appropriate. Thoughts are goal oriented and rational. No tangential or magical thinking noted. Patient speaks in full sentences without needing to catch his breath. Speech is not slurred or pressured. HEENT: Normocephalic atraumatic. Pupils are equally round reactive to light. Extraocular muscles are intact. Conjunctivae are moist without any icterus noted, conjunctiva appears slightly pale. Dry mucous membranes. Neck is supple. Cardiovascular: Heart is regular rate and rhythm S1 and S2 are present without any murmurs. Lungs: Clear to auscultation bilaterally no wheezes rhonchi or rales are appreciated. Patient takes deep breaths without any discomfort. Abdomen: Soft and nontender nondistended with normal bowel sounds. No guarding or rebound. No masses or organomegaly appreciated. Extremities: Bilateral lower extremities are without edema. Skin: Well perfused without any obvious rashes. He does have chronic venous stasis discoloration of the lower extremities. Patient is covered in feces from the waist all the way down to his feet. He has a penile ulceration on the dorsal surface of the penis just proximal to the glans. Back: Normal appearance. Stage I pressure ulcer around the top of the intergluteal cleft. Const: Vital Signs, click to edit/add: Vital Signs - 24 hr 11/26/22 12:44 11/26/22 12:45 11/26/22 12:46 Temperature 98.0 F Pulse Rate 100 100 Pulse Rate [Right Pulse Oximeter] 99 Respiratory Rate 20 Blood Pressure 95/48 L Blood Pressure [Ri ght Upper Arm] 95/48 L Pulse Oximetry 97 98 96 Oxygen Delivery Me thod Room Air 11/26/22 12:57 11/26/22 13:02 11/26/22 13:03 Temperature Pulse Rate 100 98 Pulse Rate [Right Pulse Oximeter] Respiratory Rate Blood Pressure 87/52 L Blood Pressure [Ri ght Upper Arm] Pulse Oximetry 94 98 96 Oxygen Delivery Me thod 11/26/22 13:15 11/26/22 13:38 11/26/22 13:45 Temperature Pulse Rate 97 98 96 Pulse Rate [Right Pulse Oximeter] Respiratory Rate Blood Pressure Blood Pressure [Ri ght Upper Arm] Pulse Oximetry 97 99 99 Oxygen Delivery Me thod 11/26/22 14:05 11/26/22 14:06 11/26/22 14:15 Temperature Pulse Rate 141 H 93 94 Pulse Rate [Right Pulse Oximeter] Respiratory Rate Blood Pressure 85/75 L Blood Pressure [Ri ght Upper Arm] Pulse Oximetry 92 97 99 Oxygen Delivery Me thod 11/26/22 14:25 11/26/22 14:33 11/26/22 14:34 Temperature Pulse Rate 94 96 Pulse Rate [Right Pulse Oximeter] Respiratory Rate Blood Pressure 89/52 L 105/56 L Blood Pressure [Ri ght Upper Arm] Pulse Oximetry 100 100 Oxygen Delivery Me thod Course Course Hospital Course: Fentanyl patch was removed. IV established and fluids were started. CBC shows pancytopenia, worsening since his visit 1 week ago. Normal lactate. Sodium slightly low at 134, creatinine elevated at 2.0, BUN 43. This is above his baseline. And CK is not elevated, troponin is negative. CRP is elevated at 6.4. Triple swab is negative. Chest x-ray, read by me, does not show any acute infiltrates. EKG, read by me, shows normal sinus rhythm with a pulse of 97. Patient responded well to fluids, blood pressure increasing to above 100 systolic after dropping down to 85 prior to fluids. Type and screen ordered. Packed of red blood cells ordered for transfusion. Vital Signs Vital signs: Initial Vital Signs Temperature 98.0 F 11/26/22 12:44 Temperature Source Temporal Artery Scan 11/26/22 12:44 Pulse Rate 99 11/26/22 12:44 Respiratory Rate 20 11/26/22 12:44 Blood Pressure 95/48 L 11/26/22 12:44 Blood Pressure Mean 63 L 11/26/22 12:44 Blood Pressure Position Sitting 11/26/22 12:44 Pulse Oximetry 97 11/26/22 12:44 Oxygen Delivery Method Room Air 11/26/22 12:44 Vital Signs Temperature 98.0 F 11/26/22 12:44 Pulse Rate 99 11/26/22 12:44 Respiratory Rate 20 11/26/22 12:44 Blood Pressure 95/48 L 11/26/22 12:44 Pulse Oximetry 97 11/26/22 12:44 Oxygen Delivery Method Room Air 11/26/22 12:44 Temperature 98.0 F 11/26/22 12:44 Pulse Rate 96 11/26/22 14:34 Respiratory Rate 20 11/26/22 12:44 Blood Pressure 105/56 L 11/26/22 14:34 Pulse Oximetry 100 11/26/22 14:34 Oxygen Delivery Method Room Air 11/26/22 12:44 Medical Decision Making MDM Narrative Medical decision making narrative: 72-year-old male with weakness, pancytopenia with worsening anemia, dehydration. Patient will be admitted for further management. Lab Data Lab results reviewed: Yes I reviewed the patient's lab results Labs: Lab Results 11/26/22 11/26/22 11/26/22 Range/Units 13:20 13:20 13:20 WBC 1.73 L* (4.50-11.00) K/uL RBC 2.09 L (4.30-5.90) m/uL Hgb 7.1 L* (13.5-17.5) gm/dL Hct 20.5 L (37.0-53.0) % MCV 98 (80-100) fL MCH 34 (26-34) pg MCHC 34 (32-36) gm/dL RDW Coeff of Warren 17.9 H (11.5-15.5) % Plt Count 129 L (140-440) K/uL Neut % (Auto) 62.7 (42.0-72.0) % Lymph % (Auto) 23.4 (20-44) % [place] % (Auto) 8.9 (0.0-11.0) % Eos % (Auto) 3.8 (0.0-7.0) % Baso % (Auto) 0.6 (0.0-3.0) % Neut # (Auto) 1.10 L (1.7-7.0) K/uL Lymph # (Auto) 0.40 L (0.90-2.90) K/uL [place] # (Auto) 0.20 (0.00-0.90) K/UL Eos # (Auto) 0.10 (0.00-0.50) K/uL Baso # (Auto) 0.00 (0.00-0.30) K/uL Abs Immat Gran (auto) 0.00 (0.00-0.30) K/uL Imm/Tot Granulo (auto) 0.6 % Diff Slide Review Acceptable Review (Acceptable) ESR > 102 H (2-15) mm/hr Sodium Cancelled 134 L Potassium Cancelled 4.5 Chloride Cancelled Carbon Dioxide Anion Gap BUN Creatinine Estimated Creat Clear Estimated GFR Glucose Lactate (0.5-1.9) mmol/L Calcium Total Bilirubin (0.1-1.5) mg/dL Direct Bilirubin (0.0-0.5) mg/dL AST (12-35) U/L ALT (4-50) U/L Alkaline Phosphatase (40-150) U/L Total Creatine Kinase (54-186) U/L Troponin I (0.01-0.04) ng/mL C-Reactive Protein Total Protein (6.0-8.3) g/dL Albumin (3.3-5.0) g/dL Lipase (23-300) U/L TSH (0.270-4.20) uIU/mL Ethyl Alcohol (0.01-0.03) % SARS-CoV-2 (PCR) (Negative) Influenza Type A (PCR) (Negative) Influenza Type B (PCR) (Negative) RSV (PCR) (Negative) POC Troponin I (0.01-0.04) ng/ml Blood Type Antibody Screen Crossmatch (AHG) 11/26/22 11/26/22 11/26/22 Range/Units 13:20 13:20 13:20 WBC (4.50-11.00) K/uL RBC (4.30-5.90) m/uL Hgb (13.5-17.5) gm/dL Hct (37.0-53.0) % MCV (80-100) fL MCH (26-34) pg MCHC (32-36) gm/dL RDW Coeff of Warren (11.5-15.5) % Plt Count (140-440) K/uL Neut % (Auto) (42.0-72.0) % Lymph % (Auto) (20-44) % [place] % (Auto) (0.0-11.0) % Eos % (Auto) (0.0-7.0) % Baso % (Auto) (0.0-3.0) % Neut # (Auto) (1.7-7.0) K/uL Lymph # (Auto) (0.90-2.90) K/uL [place] # (Auto) (0.00-0.90) K/UL Eos # (Auto) (0.00-0.50) K/uL Baso # (Auto) (0.00-0.30) K/uL Abs Immat Gran (auto) (0.00-0.30) K/uL Imm/Tot Granulo (auto) % Diff Slide Review (Acceptable) ESR (2-15) mm/hr Sodium Potassium Chloride 101 Carbon Dioxide Cancelled 20 Anion Gap Cancelled BUN Cancelled 43 H Creatinine Cancelled Estimated Creat Clear Estimated GFR Glucose Lactate (0.5-1.9) mmol/L Calcium Total Bilirubin (0.1-1.5) mg/dL Direct Bilirubin (0.0-0.5) mg/dL AST (12-35) U/L ALT (4-50) U/L Alkaline Phosphatase (40-150) U/L Total Creatine Kinase (54-186) U/L Troponin I (0.01-0.04) ng/mL C-Reactive Protein Total Protein (6.0-8.3) g/dL Albumin (3.3-5.0) g/dL Lipase (23-300) U/L TSH (0.270-4.20) uIU/mL Ethyl Alcohol (0.01-0.03) % SARS-CoV-2 (PCR) (Negative) Influenza Type A (PCR) (Negative) Influenza Type B (PCR) (Negative) RSV (PCR) (Negative) POC Troponin I (0.01-0.04) ng/ml Blood Type Antibody Screen Crossmatch (AHG) 11/26/22 11/26/22 11/26/22 Range/Units 13:20 13:20 13:20 WBC (4.50-11.00) K/uL RBC (4.30-5.90) m/uL Hgb (13.5-17.5) gm/dL Hct (37.0-53.0) % MCV (80-100) fL MCH (26-34) pg MCHC (32-36) gm/dL RDW Coeff of Warren (11.5-15.5) % Plt Count (140-440) K/uL Neut % (Auto) (42.0-72.0) % Lymph % (Auto) (20-44) % [place] % (Auto) (0.0-11.0) % Eos % (Auto) (0.0-7.0) % Baso % (Auto) (0.0-3.0) % Neut # (Auto) (1.7-7.0) K/uL Lymph # (Auto) (0.90-2.90) K/uL [place] # (Auto) (0.00-0.90) K/UL Eos # (Auto) (0.00-0.50) K/uL Baso # (Auto) (0.00-0.30) K/uL Abs Immat Gran (auto) (0.00-0.30) K/uL Imm/Tot Granulo (auto) % Diff Slide Review (Acceptable) ESR (2-15) mm/hr Sodium Potassium Chloride Carbon Dioxide Anion Gap BUN Creatinine 2.0 H Estimated Creat Clear Cancelled Estimated GFR Cancelled 35 Glucose Cancelled 160 H Lactate 1.1 (0.5-1.9) mmol/L Calcium Cancelled Total Bilirubin (0.1-1.5) mg/dL Direct Bilirubin (0.0-0.5) mg/dL AST (12-35) U/L ALT (4-50) U/L Alkaline Phosphatase (40-150) U/L Total Creatine Kinase (54-186) U/L Troponin I (0.01-0.04) ng/mL C-Reactive Protein Total Protein (6.0-8.3) g/dL Albumin (3.3-5.0) g/dL Lipase (23-300) U/L TSH (0.270-4.20) uIU/mL Ethyl Alcohol (0.01-0.03) % SARS-CoV-2 (PCR) (Negative) Influenza Type A (PCR) (Negative) Influenza Type B (PCR) (Negative) RSV (PCR) (Negative) POC Troponin I (0.01-0.04) ng/ml Blood Type Antibody Screen Crossmatch (AHG) 11/26/22 11/26/22 11/26/22 Range/Units 13:20 13:20 13:20 WBC (4.50-11.00) K/uL RBC (4.30-5.90) m/uL Hgb (13.5-17.5) gm/dL Hct (37.0-53.0) % MCV (80-100) fL MCH (26-34) pg MCHC (32-36) gm/dL RDW Coeff of Warren (11.5-15.5) % Plt Count (140-440) K/uL Neut % (Auto) (42.0-72.0) % Lymph % (Auto) (20-44) % [place] % (Auto) (0.0-11.0) % Eos % (Auto) (0.0-7.0) % Baso % (Auto) (0.0-3.0) % Neut # (Auto) (1.7-7.0) K/uL Lymph # (Auto) (0.90-2.90) K/uL [place] # (Auto) (0.00-0.90) K/UL Eos # (Auto) (0.00-0.50) K/uL Baso # (Auto) (0.00-0.30) K/uL Abs Immat Gran (auto) (0.00-0.30) K/uL Imm/Tot Granulo (auto) % Diff Slide Review (Acceptable) ESR (2-15) mm/hr Sodium Potassium Chloride Carbon Dioxide Anion Gap BUN Creatinine Estimated Creat Clear Estimated GFR Glucose Lactate (0.5-1.9) mmol/L Calcium 8.5 Total Bilirubin 2.1 H (0.1-1.5) mg/dL Direct Bilirubin 0.2 (0.0-0.5) mg/dL AST 24 (12-35) U/L ALT 13 (4-50) U/L Alkaline Phosphatase 54 (40-150) U/L Total Creatine Kinase 42 L Cancelled (54-186) U/L Troponin I < 0.01 L (0.01-0.04) ng/mL C-Reactive Protein Cancelled 6.4 H Total Protein 6.1 (6.0-8.3) g/dL Albumin 3.3 (3.3-5.0) g/dL Lipase 17 L (23-300) U/L TSH 1.090 (0.270-4.20) uIU/mL Ethyl Alcohol < 0.01 L (0.01-0.03) % SARS-CoV-2 (PCR) (Negative) Influenza Type A (PCR) (Negative) Influenza Type B (PCR) (Negative) RSV (PCR) (Negative) POC Troponin I (0.01-0.04) ng/ml Blood Type Antibody Screen Crossmatch (AHG) 11/26/22 Range/Units 13:20 WBC (4.50-11.00) K/uL RBC (4.30-5.90) m/uL Hgb (13.5-17.5) gm/dL Hct (37.0-53.0) % MCV (80-100) fL MCH (26-34) pg MCHC (32-36) gm/dL RDW Coeff of Warren (11.5-15.5) % Plt Count (140-440) K/uL Neut % (Auto) (42.0-72.0) % Lymph % (Auto) (20-44) % [place] % (Auto) (0.0-11.0) % Eos % (Auto) (0.0-7.0) % Baso % (Auto) (0.0-3.0) % Neut # (Auto) (1.7-7.0) K/uL Lymph # (Auto) (0.90-2.90) K/uL [place] # (Auto) (0.00-0.90) K/UL Eos # (Auto) (0.00-0.50) K/uL Baso # (Auto) (0.00-0.30) K/uL Abs Immat Gran (auto) (0.00-0.30) K/uL Imm/Tot Granulo (auto) % Diff Slide Review (Acceptable) ESR (2-15) mm/hr Sodium Potassium Chloride Carbon Dioxide Anion Gap BUN Creatinine Estimated Creat Clear Estimated GFR Glucose Lactate (0.5-1.9) mmol/L Calcium Total Bilirubin (0.1-1.5) mg/dL Direct Bilirubin (0.0-0.5) mg/dL AST (12-35) U/L ALT (4-50) U/L Alkaline Phosphatase (40-150) U/L Total Creatine Kinase (54-186) U/L Troponin I (0.01-0.04) ng/mL C-Reactive Protein Total Protein (6.0-8.3) g/dL Albumin (3.3-5.0) g/dL Lipase (23-300) U/L TSH (0.270-4.20) uIU/mL Ethyl Alcohol Cancelled (0.01-0.03) % SARS-CoV-2 (PCR) Negative SARS-CoV-2 (Negative) Influenza Type A (PCR) Negative PCR FLU A (Negative) Influenza Type B (PCR) Negative PCR FLU B (Negative) RSV (PCR) Negative PCR RSV (Negative) POC Troponin I 0.01 (0.01-0.04) ng/ml Blood Type A Positive Antibody Screen NEGATIVE Crossmatch (AHG) See Detail Imaging Data Chest x-ray: Attestation: I have reviewed the pertinent imaging results. Radiologist's impression: Chest 2 views. COMPARISON: 11/01/22 FINDINGS: Cardiovascular and mediastinum: Heart size and vasculature are normal in caliber and appearance. Mediastinum is within normal limits. Lungs and pleural spaces: Lungs are clear. No sign of infiltrate or mass. No sign of pleural effusion. No pneumothorax. Bones and soft tissues: No significant findings. IMPRESSION: Unremarkable chest. ECG Data Attestation: I personally reviewed and interpreted this ECG as follows: Discharge Plan Discharge Clinical Impression: Weakness, Penile ulcer, Pancytopenia, Dehydration Patient Disposition: Admitted As Inpatient Condition: Improved Prescriptions: No Action atorvastatin 20 mg tablet 20 mg PO HS Qty: 90 3RF citalopram [Celexa] 40 mg tablet 40 mg PO DAILY Qty: 90 3RF gabapentin 600 mg tablet 600 mg PO BID Qty: 180 3RF insulin aspart U-100 100 unit/mL solution 100 unit subcut DAILY Patient Comments: VIA INSULIN PUMP calcium carbonate 500 mg calcium (1,250 mg) tablet 500 mg PO BID clopidogrel 75 mg tablet 75 mg PO DAILY cefuroxime axetil 500 mg Tablet 500 mg PO BIDWM Qty: 6 0RF vancomycin 125 mg Capsule 125 mg PO QID 8 Days Qty: 32 0RF glipizide 5 mg Tablet 5 mg PO DAILYWM Qty: 30 0RF sodium chloride 1,000 mg tablet,soluble 1,000 mg PO BID Qty: 60 0RF aspirin [Adult Aspirin Regimen] 81 mg tablet,delayed release (DR/EC) 81 mg PO DAILY azathioprine 50 mg tablet 150 mg PO DAILY tacrolimus 0.5 mg capsule 1.5 - 2 mg PO Q12H Patient Comments: takes 4 CAPS (2MG) AM and 3 CAPS (1.5MG) PM ferrous sulfate 325 mg (65 mg iron) tablet 325 mg PO DAILY furosemide 40 mg tablet 40 mg PO QAM PRN tamsulosin 0.4 mg capsule 0.4 mg PO DAILY omeprazole 20 mg capsule,delayed release(DR/EC) 40 mg PO DAILY doxazosin 2 mg tablet 4 mg PO HS cholecalciferol (vitamin D3) 25 mcg (1,000 unit) capsule 4,000 unit PO DAILY allopurinol 100 mg Tablet 100 mg PO DAILY Qty: 30 0RF metoprolol tartrate 25 mg Tablet 25 mg PO BID Qty: 60 0RF multivitamin Tablet 1 tab PO DAILY Qty: 90 3RF oxycodone 5 mg tablet 5 mg PO Q6H PRN (Reason: pain) Qty: 20 0RF fentanyl 25 mcg/hr patch 72 hour 1 patch transdermal Q48H Qty: 15 0RF Follow Up/Referrals: Rubén Boyle MD [Primary Care Provider] -
[2022-11-26] MEDS: 0.9 % SODIUM CHLORIDE 1000 ml 1,000 ML IV (13:00)
[2022-11-26 13:30] LABS: Lactate* 1.1 mmol/L (0.5-1.9)
[2022-11-26 13:33] LABS: Basophils Percent Auto 0.6 % (0.0-3.0); Eosinophils Percent Auto 3.8 % (0.0-7.0); Hematocrit 20.5 % (37.0-53.0); Immature Granulocytes Pct Auto 0.6 %; Lymphocytes Percent Auto 23.4 % (20-44); Mean Corpuscular HGB Conc 34 gm/dL (32-36); Mean Corpuscular Hemoglobin 34 pg (26-34); Mean Corpuscular Volume 98 fL (80-100); Monocytes Percent Auto 8.9 % (0.0-11.0); Neutrophils Percent Auto 62.7 % (42.0-72.0); Platelet Count* 129 K/uL (140-440); RDW Coefficient of Variation % 17.9 % (11.5-15.5); Red Blood Count 2.09 m/uL (4.30-5.90)
[2022-11-26 13:50] LABS: Hemoglobin* 7.1 gm/dL (13.5-17.5); Slide Review Reflex Yes; White Blood Count* 1.73 K/uL (4.50-11.00)
[2022-11-26 13:55] LABS: Albumin* 3.3 g/dL (3.3-5.0); Chloride* 101 mmol/L (96-114); Sodium* 134 mmol/L (135-149)
[2022-11-26 13:56] LABS: Potassium* 4.5 mmol/L (3.6-5.1)
[2022-11-26 13:57] LABS: Estimated Glomerular Filt Rate 35 ml/min
[2022-11-26 13:58] LABS: Alkaline Phosphatase* 54 U/L (40-150); Aspartate Amino Transferase* 24 U/L (12-35); Bilirubin Direct* 0.2 mg/dL (0.0-0.5); Bilirubin Total* 2.1 mg/dL (0.1-1.5); Blood Urea Nitrogen* 43 mg/dL (7-30); Carbon Dioxide* 20 mmol/L (20-32); Creatine Kinase* 42 U/L (54-186); Glucose* 160 mg/dL (60-115); Lipase* 17 U/L (23-300); Total Protein* 6.1 g/dL (6.0-8.3)
[2022-11-26 13:59] LABS: Alanine Aminotransferase* 13 U/L (4-50); Calcium* 8.5 mg/dL (8.4-10.6)
[2022-11-26 14:01] LABS: C Reactive Protein* 6.4 mg/dL (0.5-1.0)
[2022-11-26 14:05] LABS: Slide Review Acceptable Review (Acceptable); Troponin, Point-of-Care* 0.01 ng/ml (0.01-0.04)
[2022-11-26 14:07] LABS: PCR FLU A Negative PCR FLU A (Negative); PCR FLU B Negative PCR FLU B (Negative); PCR RSV Negative PCR RSV (Negative)
[2022-11-26 14:10] LABS: Ethanol* < 0.01 % (0.01-0.03); SARS PCR* Negative SARS-CoV-2 (Negative); Troponin I* < 0.01 ng/mL (0.01-0.04)
[2022-11-26 14:18] LABS: Erythrocyte SedimentationRate* > 102 mm/hr (2-15)
--- NOTE | 2022-11-26 14:20 | ED.NURSE ---
Pt's brother Michael called and wanted this nurse to admit the pt. This nurse states she is unable to do that and it is up to the doctor to admit or discharge the pt. Brother states that he was the one that called EMS this morning. He went to check on his brother and the house is in disarray and there are feces and flies everywhere. He does not think his brother will be able to return to his house until it is clean and his brother lives alone.
--- NOTE | 2022-11-26 14:39 | PM.IMHP1 ---
Hospitalist- H&P: HPI History of Present Illness Date Seen: 11/26/22 Chief complaint: weakness Narrative: Bari Mora is a 72 year old male with complicated past medical history of CHF, HTN, GERD, Type II DM with peripheral neuropathy, pancytopenia, hx of c diff colitis, hx of liver/kidney transplant and frequent hospital admissions presenting for evaluation of generalized weakness. He endorsed bilateral leg weakness. He was noted to be hypotensive by EMS. He endorsed fatigue. He denies diarrhea but was noted to be covered in feces upon arrival to ED. He denies chest pain, sob, abdominal pain, diarrhea, fever. In the ED notable labs included wbc 1.7, hgb 7.1, plt 129, lactate WNL. His SBP was noted to be in 90s. He was afebrile. CXR no acute findings. In the ED he was given IVF and 1 unit of PRBC. cxr IMPRESSION: Unremarkable chest. 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 difficile diarrhea ?A04.72 - Enterocolitis due to Clostridium difficile, not specified as recurrent (ICD-10) Elevated bilirubin ?R17 - Unspecified jaundice (ICD-10) Metabolic encephalopathy ?G93.41 - Metabolic encephalopathy (ICD-10) Low back pain ?M54.50 - Low back pain, unspecified (ICD-10) Vitamin D deficiency ?E55.9 - Vitamin D deficiency, unspecified (ICD-10) History of transcatheter aortic valve replacement (TAVR) ?Z95.2 - Presence of prosthetic heart valve (ICD-10) BPH (benign prostatic hyperplasia) ?N40.0 - Benign prostatic hyperplasia without lower urinary tract symptoms (ICD-10) History of non-anemic folic acid deficiency ?Z86.39 - Personal history of other endocrine, nutritional and metabolic disease (ICD-10) History of colonic polyps (05/10/13) ?Z86.010 - Personal history of colonic polyps (ICD-10) Folic acid deficiency (01/22/16) ?E53.8 - Deficiency of other specified B group vitamins (ICD-10) Erectile dysfunction ?N52.9 - Male erectile dysfunction, unspecified (ICD-10) Current moderate episode of major depressive disorder without prior episode (01/14/17) ?F32.1 - Major depressive disorder, single episode, moderate (ICD-10) Controlled substance agreement signed (04/19/18) ?Z79.899 - Other terminal superintendent (current) drug therapy (ICD-10) Pancytopenia ?D61.818 - Other pancytopenia (ICD-10) Pain syndrome, chronic ?G89.4 - Chronic pain syndrome (ICD-10) Chronic kidney disease (CKD) ?N18.9 - Chronic kidney disease, unspecified (ICD-10) History of ETOH abuse ?F10.11 - Alcohol abuse, in remission (ICD-10) CHF (congestive heart failure) ?I50.9 - Heart failure, unspecified (ICD-10) Mitral regurgitation ?I34.0 - Nonrheumatic mitral (valve) insufficiency (ICD-10) Diabetic neuropathy ?E11.40 - Type 2 diabetes mellitus with diabetic neuropathy, unspecified (ICD-10) GERD (gastroesophageal reflux disease) ?K21.9 - Gastro-esophageal reflux disease without esophagitis (ICD-10) Hyperlipidemia ?E78.5 - Hyperlipidemia, unspecified (ICD-10) HTN (hypertension) ?I10 - Essential (primary) hypertension (ICD-10) Diverticulosis ?K57.90 - Diverticulosis of intestine, part unspecified, without perforation or abscess without bleeding (ICD-10) Surgical History Liver transplant recipient ?Z94.4 - Liver transplant status (ICD-10) History of coronary artery stent placement ?Z95.5 - Presence of coronary angioplasty implant and graft (ICD-10) S/P TAVR (transcatheter aortic valve replacement) ?Z95.2 - Presence of prosthetic heart valve (ICD-10) History of liver transplant (07/10/16) ?Z94.4 - Liver transplant status (ICD-10) History of decompression of ulnar nerve (1979) ?Z98.890 - Other specified postprocedural states (ICD-10) History of cataract extraction (2017) ?Z98.49 - Cataract extraction status, unspecified eye (ICD-10) 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) ?Z96.643 - Presence of artificial hip joint, bilateral (ICD-10) Kidney transplant recipient ?Z94.0 - Kidney transplant status (ICD-10) History of hip replacement ?Z96.649 - Presence of unspecified artificial hip joint (ICD-10) Hx of hernia repair ?Z98.890 - Other specified postprocedural states (ICD-10) ?Z87.19 - Personal history of other diseases of the digestive system (ICD-10) Family History Father Diabetes Coronary artery disease Sister Diabetes Social History Narrative: He lives in [place]. He lives by himself. He functions independently. He is retired. Remote history of smoking having quit about 20 years ago after a 10 pack year history. 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 Last drank in 2016 What is your current living situation?: I presently have a place to live Problems where you live: no known problems Problems where you live details: N/A In the past 12 months, utilities in danger of being shut off: no In the past 12 mos, have been you worried that your food would run out before you had money to buy more?: never true In the past 12 mos, the food you bought just didn't last and you didn't have money to buy more?: never true Highest level of school completed/degree received: high school graduate Smoking Status: Former smoker Do you use any of these nicotine containing products: None Second hand tobacco smoke exposure: No How often do you have a drink containing alcohol: never How often do you have six or more drinks on one occasion: Never AUDIT-C Alcohol total score: 0 Non-prescribed substance use: denies use Caffeine: Yes (coke zero 1 can/ day) How often does anyone, including family, friends and others, physically hurt you: never How often does anyone, including family, friends and others, insult or talk down to you: never How often does anyone, including family, friends and others, threaten you with harm: never How often does anyone, including family, friends and others, scream or curse at you: never Little interest or pleasure in doing things: more than half the days Feeling down, depressed, or hopeless: more than half the days service: No Meds Home Medications and Allergies Home Medications Medication Instructions Recorded Confirmed Type aspirin 81 mg tablet,delayed 81 mg PO DAILY 10/22/21 11/26/22 History release (Adult Aspirin Regimen) azathioprine 50 mg tablet 150 mg PO DAILY 10/22/21 11/26/22 History insulin aspart U-100 100 unit/mL 100 unit subcut DAILY 04/22/22 11/26/22 History subcutaneous solution tacrolimus 0.5 mg capsule, 1.5 - 2 mg PO BID 05/17/22 11/26/22 History immediate-release cholecalciferol (vitamin D3) 25 4,000 unit PO DAILY 10/26/22 11/26/22 History mcg (1,000 unit) capsule ferrous sulfate 325 mg (65 mg 325 mg PO DAILY 10/26/22 11/26/22 History iron) tablet furosemide 40 mg tablet 40 mg PO QAM PRN 10/26/22 11/26/22 History omeprazole 20 mg capsule,delayed 40 mg PO DAILY 10/26/22 11/26/22 History release tamsulosin 0.4 mg capsule 0.4 mg PO DAILY 10/26/22 11/26/22 History clopidogrel 75 mg tablet 75 mg PO DAILY 11/01/22 11/26/22 History doxazosin 4 mg tablet 4 mg PO HS 11/26/22 11/26/22 History Allergies Allergy/AdvReac Type Severity Reaction Status Date / Time phytonadione (vitamin K1) Allergy Intermediate Unknown Verified 11/18/22 09:42 Exam Narrative: Exam Narrative: Gen: no acute distress; disheveled HEENT: NCAT EOMI mmm Neck: Supple CV: RRR normal s1 s2 Lungs: CTAB Abd: Soft,nt, nd Neuro: Alert, oriented, CN grossly intact; nonfocal screening?exam Psych: flat affect MSK: age appropriate muscle mass Skin; jpale complexion Const: Vital Signs, click to edit/add: Vital Signs - 24 hr 11/26/22 12:44 11/26/22 12:45 11/26/22 12:46 Temperature 98.0 F Pulse Rate 100 100 Pulse Rate [Right Pulse Oximeter] 99 Respiratory Rate 20 Blood Pressure 95/48 L Blood Pressure [Ri ght Upper Arm] 95/48 L Pulse Oximetry 97 98 96 Oxygen Delivery Me thod Room Air 11/26/22 12:57 11/26/22 13:02 11/26/22 13:03 Temperature Pulse Rate 100 98 Pulse Rate [Right Pulse Oximeter] Respiratory Rate Blood Pressure 87/52 L Blood Pressure [Ri ght Upper Arm] Pulse Oximetry 94 98 96 Oxygen Delivery Me thod 11/26/22 13:15 11/26/22 13:38 11/26/22 13:45 Temperature Pulse Rate 97 98 96 Pulse Rate [Right Pulse Oximeter] Respiratory Rate Blood Pressure Blood Pressure [Ri ght Upper Arm] Pulse Oximetry 97 99 99 Oxygen Delivery Me thod 11/26/22 14:05 11/26/22 14:06 11/26/22 14:15 Temperature Pulse Rate 141 H 93 94 Pulse Rate [Right Pulse Oximeter] Respiratory Rate Blood Pressure 85/75 L Blood Pressure [Ri ght Upper Arm] Pulse Oximetry 92 97 99 Oxygen Delivery Me thod 11/26/22 14:25 11/26/22 14:33 11/26/22 14:34 Temperature Pulse Rate 94 96 Pulse Rate [Right Pulse Oximeter] Respiratory Rate Blood Pressure 89/52 L 105/56 L Blood Pressure [Ri ght Upper Arm] Pulse Oximetry 100 100 Oxygen Delivery Me thod Hospitalist - H&P: Result Labs Labs: Short CBC 11/26/22 Range/Units 13:20 WBC 1.73 L* (4.50-11.00) K/uL Hgb 7.1 L* (13.5-17.5) gm/dL Hct 20.5 L (37.0-53.0) % Plt Count 129 L (140-440) K/uL BMP 08/11/23 08/11/23 08/11/23 13:20 13:20 13:20 Sodium Cancelled 134 L Potassium Cancelled 4.5 Chloride Cancelled Carbon Dioxide BUN Creatinine Glucose Calcium 11/26/22 11/26/22 11/26/22 13:20 13:20 13:20 Sodium Potassium Chloride 101 Carbon Dioxide Cancelled 20 BUN Cancelled 43 H Creatinine Cancelled Glucose Calcium 11/26/22 11/26/22 11/26/22 13:20 13:20 13:20 Sodium Potassium Chloride Carbon Dioxide BUN Creatinine 2.0 H Glucose Cancelled 160 H Calcium Cancelled 8.5 Cardiac Enzymes 11/26/22 11/26/22 Range/Units 13:20 13:20 Total Creatine Kinase 42 L Cancelled (54-186) U/L Troponin I < 0.01 L (0.01-0.04) ng/mL Liver Function 11/26/22 Range/Units 13:20 Total Bilirubin 2.1 H (0.1-1.5) mg/dL Direct Bilirubin 0.2 (0.0-0.5) mg/dL AST 24 (12-35) U/L ALT 13 (4-50) U/L Alkaline Phosphatase 54 (40-150) U/L Albumin 3.3 (3.3-5.0) g/dL Assessment and Plan Assessment and plan (1) Pancytopenia: Problem comment: Etiology not yet determined. Doubt related to sepsis. Iatrogenic etiology possible including from aspirin, allopurinol, azathioprine, and furosemide. Consider primary bone marrow failure, infectious and noninfectious causes, verses bone marrow infiltrative processes, such as malignant versus non-malignant etiologies. Status: Acute (2) BPH (benign prostatic hyperplasia): Status: Acute (3) Hyperlipidemia: Status: Acute (4) Pain syndrome, chronic: Status: Acute (5) GERD (gastroesophageal reflux disease): Status: Acute (6) CHF (congestive heart failure): Status: Acute (7) Acute renal failure superimposed on stage 3 chronic kidney disease: Problem comment: Baseline creatinine 1.1-1.3. On 11/26/2022 creatinine is 2.0. Status: Acute Plan Bari Mora is a 72 year old male with complicated past medical history of CHF, HTN, GERD, Type II DM with peripheral neuropathy, pancytopenia, hx of c diff colitis, hx of liver/kidney transplant and frequent hospital admissions presenting for evaluation of generalized weakness. He endorsed bilateral leg weakness. He was noted to be hypotensive by EMS. He endorsed fatigue. He denies diarrhea but was noted to be covered in feces upon arrival to ED. He denies chest pain, sob, abdominal pain, diarrhea, fever. In the ED notable labs included wbc 1.7, hgb 7.1, plt 129, lactate WNL. His SBP was noted to be in 90s. He was afebrile. CXR no acute findings. In the ED he was given IVF and 1 unit of PRBC. 1. Symptomatic Anemia 2. Hx of Pancytopenia 3. Hx of CHF/HTN 4. Hx of GERD 5. Hx of Type II DM with peripheral neuropathy 6. Acute renal failure 7. Suspected recurrent UTI/Generalized weakness 8. hx of liver/kidney transplant 9. Hx of Depression Plan -IVF -albumin -hold antihypertensives -hold statin -repeat hgb; no evidence of GI bleed -monitor I&O; repeat BMP in AM -start ceftriaxone -f/u UCx -SSI; hold oral insulin agents -continue transplant meds -hold plavix/lasix for now -IV PPI -therapy evaluation -SW consult; ?vulnerable adult Code-DNR/DNI DVt ppx-SCD
[2022-11-26 15:00] LABS: Appearance Urine Cloudy (Clear); Bilirubin Urine 2+ (Negative); Blood Urine Trace-intact (Negative); Color Urine Yellow (Yellow); Glucose Urine Negative (Negative); Ketones Urine 1+ (Negative); Leukocyte Esterase Urine 1+ (Negative); Nitrite Urine Negative (Negative); Protein Urine 1+ (Negative); Urobilinogen Urine 0.2 (0.2-1.0)
[2022-11-26 15:08] LABS: RBC Urine 0-2 (0-2); WBC Urine 25-50 (0-5)
[2022-11-26 15:09] LABS: Bacteria Urine Many; Squamous Epithelial Cell Urine Few (None-Few)
[2022-11-26 15:23] LABS: Ammonia* < 9.0 umol/L (13.1-30.0)
[2022-11-26] MEDS: PANTOPRAZOLE SODIUM 40 MG INJ IVP (16:20)
[2022-11-26] MEDS: 0.9 % SODIUM CHLORIDE 1000 ml 1,000 ML 75 ML IV (16:20)
[2022-11-26] MEDS: cefTRIAXone 2 GM in 0.9 % SODIUM CHLORIDE Mini-bag 100 ML IVPB (16:22)
[2022-11-26] MEDS: ALBUMIN HUMAN 25% 25 GM/100 ML VIAL IVPB (17:04)
--- NOTE | 2022-11-26 19:52 | PC.NURSE ---
Admission-- Pleasant and cooperative, alert and oriented patient was admitted to med-surg via cart from ED. VSS and pt is afebrile. SPO2 maintained >94% on RA. He denied pain. LS CTA. HR reg. BS+ x4 and pt had large, loose incontinent BM this evening. Pt was given Albumin, protonix, Rocephin and 1 unit PRBCs per MD order and tolerated it well. He denied nausea and ate 100% of a regular diet independently. Report to BENTLEY Hay.
[2022-11-26] MEDS: TACROLIMUS 0.5 MG CAPSULE 1.5 MG PO (20:55)
[2022-11-26] MEDS: SODIUM CHLORIDE 0.9 % (FLUSH) 10 ML SYRINGE 5 ML IVF (20:55)
[2022-11-26 23:40] LABS: Hemoglobin* 7.1 gm/dL (13.5-17.5)
[2022-11-27] VITALS (12 sets, daily range): BP systolic 122–147; BP diastolic 59–79; PULSE 72–93; RESP 16–18; TEMP 36.1–37.4; O2SAT 86–98
[2022-11-27] MEDS: ACETAMINOPHEN 325 MG TABLET 650 MG PO ×2 (01:57→17:05)
[2022-11-27] MEDS: 0.9 % SODIUM CHLORIDE 250 ml IV (01:57)
[2022-11-27] MEDS: HYDROmorphone 0.5 mg/0.5 ml inj IVP ×3 (01:57→20:43)
[2022-11-27 05:38] LABS: CDIFFEPI 027 PRESUMPTIVE NEGATIVE (Negative)
[2022-11-27 05:42] LABS: C.Difficile POSITIVE (Negative)
[2022-11-27] MEDS: 0.9 % SODIUM CHLORIDE 1000 ml 1,000 ML 75 ML IV ×2 (06:10→23:01)
--- NOTE | 2022-11-27 07:08 | PC.NURSE ---
-: pleasant and cooperative. T&R. Incontinent of B&B, miesha area tender, penile ulcer on dorsal surface of penis.?Pt had 2 loose stools, Cdiff sample ordered -> resulted positive, MD will be updated upon arrival to floor. Contact precautions put in place. ?Tylenol given for headache, offered relief. Pt c/o generalized pain ? prn dilaudid given, offered relief. Completed 2 units of PRBCs this shift, VSS.
[2022-11-27 07:13] LABS: Basophils Percent Auto 0.8 % (0.0-3.0); Eosinophils Percent Auto 4.9 % (0.0-7.0); Hematocrit 23.2 % (37.0-53.0); Immature Granulocytes Pct Auto 0.8 %; Lymphocytes Percent Auto 26.8 % (20-44); Mean Corpuscular HGB Conc 35 gm/dL (32-36); Mean Corpuscular Hemoglobin 33 pg (26-34); Mean Corpuscular Volume 96 fL (80-100); Monocytes Percent Auto 6.5 % (0.0-11.0); Neutrophils Percent Auto 60.2 % (42.0-72.0); Platelet Count* 112 K/uL (140-440); RDW Coefficient of Variation % 16.9 % (11.5-15.5); Red Blood Count 2.42 m/uL (4.30-5.90)
[2022-11-27 07:16] LABS: White Blood Count* 1.23 K/uL (4.50-11.00)
[2022-11-27 07:17] LABS: Slide Review Reflex No
[2022-11-27 07:33] LABS: Albumin* 3.1 g/dL (3.3-5.0); Chloride* 106 mmol/L (96-114)
[2022-11-27 07:34] LABS: Potassium* 4.1 mmol/L (3.6-5.1); Sodium* 137 mmol/L (135-149)
[2022-11-27 07:36] LABS: Aspartate Amino Transferase* 17 U/L (12-35); Bilirubin Total* 1.3 mg/dL (0.1-1.5); Carbon Dioxide* 22 mmol/L (20-32); Creatinine* 1.7 mg/dL (0.5-1.5); Est. Creatinine Clearance* 43.06; Estimated Glomerular Filt Rate 43 ml/min; Total Protein* 5.5 g/dL (6.0-8.3)
[2022-11-27 07:37] LABS: Alanine Aminotransferase* 10 U/L (4-50); Alkaline Phosphatase* 44 U/L (40-150); Blood Urea Nitrogen* 36 mg/dL (7-30); Glucose* 165 mg/dL (60-115)
[2022-11-27] MEDS: TACROLIMUS 0.5 MG CAPSULE 2 MG PO (08:53)
[2022-11-27] MEDS: PANTOPRAZOLE SODIUM 40 MG INJ IVP (08:53)
[2022-11-27] MEDS: azaTHIOprine 50 MG TABLET 150 MG PO (08:53)
[2022-11-27] MEDS: SODIUM CHLORIDE 0.9 % (FLUSH) 10 ML SYRINGE 5 ML IVF ×2 (08:53→20:45)
[2022-11-27] MEDS: allopurinoL 100 MG TABLET PO (08:53)
[2022-11-27] MEDS: TAMSULOSIN HCL 0.4 MG CAPSULE PO (08:53)
--- NOTE | 2022-11-27 09:49 | PC.NURSE ---
pleasent alert and oriented. vs wnl. tele nsr at 82. ls clear. heartrate reg. poss bs. no bm this am when changed lg incont. of urine brief. states sore tip forskin. le look well taken care of. rest of skin scattered bruising and scabbed over small areas. no reddness of buttock. Waiting for PT/OT to assess and get pt to a chair. pt unable to ambulate alone at this time. He states uses a walker at home. had pt tcdb. enc 2x hourly wa. He turned side to side with breif changing on his own. then placing him on his rt side. pt no longer npo. swallows pills well with water. diabetic reg diet. wanting to skip breakfast and sleep till lunchtime. then eating. BS this am 165. no coverage given.
--- NOTE | 2022-11-27 12:44 | P.IMPN_ITS ---
Progress Note: A&P Assessment and plan (1) Pancytopenia: Problem details: Etiology not yet determined. Doubt related to sepsis. Iatrogenic etiology possible including from aspirin, allopurinol, azathioprine, and furosemide. Consider primary bone marrow failure, infectious and noninfectious causes, verses bone marrow infiltrative processes, such as malignant versus non- malignant etiologies. Status: Acute Assessment and Plan: 1. Monitor. 2. Consider calling and discussing with his transplant team. (2) BPH (benign prostatic hyperplasia): Status: Acute (3) Hyperlipidemia: Status: Acute (4) Pain syndrome, chronic: Status: Acute (5) GERD (gastroesophageal reflux disease): Status: Acute (6) CHF (congestive heart failure): Status: Acute (7) Acute renal failure superimposed on stage 3 chronic kidney disease: Problem details: Baseline creatinine 1.1-1.3. On 11/26/2022 creatinine is 2.0. Status: Acute Assessment and Plan: 1. Carefully hydrate and monitor his response. (8) Dehydration: Status: Acute (9) Weakness: Problem details: Multifactorial, acute on chronic Status: Acute Assessment and Plan: 1. Continue to work with physical and occupational therapy. 2. Patient prefers to return home with all possible. Might consider short-term transitional care unit services if warranted. (10) Type 2 diabetes mellitus treated with insulin: Problem details: - A1c 6.3, covered with sliding scale. - Glucotrol 5 mg p.o. q.day started 11/06 Status: Acute (11) C. difficile diarrhea: Problem details: - + 11/02, treated with oral Vancomycin. Current profile suggests he does not have active C diff infection. Status: Acute Plan 1. Reviewed impression with patient. 2. Reviewed plans and recommendations with patient. 3. Answered patient's questions to satisfaction. 4. Patient agreeable with above stated plans and recommendations. 5. Continue to work with manager social responsibility. Time Spent With Patient Total time spent: 45 minutes Subjective Time Seen by Provider: 08:00 Date Seen: 11/27/22 Interval history: Hospital day 2. HPI: Bari Mora is a 72 year old male with complicated past medical history of CHF, HTN, GERD, Type II DM with peripheral neuropathy, pancytopenia, hx of c diff colitis, hx of liver/kidney transplant and frequent hospital admissions presenting for evaluation of generalized weakness. He endorsed bilateral leg weakness. He was noted to be hypotensive by EMS. He endorsed fatigue. He denies diarrhea but was noted to be covered in feces upon arrival to ED. He denies chest pain, sob, abdominal pain, diarrhea, fever. In the ED notable labs included wbc 1.7, hgb 7.1, plt 129, lactate WNL. His SBP was noted to be in 90s. He was afebrile. CXR no acute findings. In the ED he was given IVF and 1 unit of PRBC. I obtain very little additional information from the patient today about what transpired in his home culminating in his coming in for assessment yesterday. He indicates he has been extremely weak at home. Denies fevers, rigors, diaphoresis. His brothers who help him and monitor him recommended he come into the hospital the day prior but he declined. He eventually he consented to coming in yesterday. On arrival patient was rather weak, disheveled, covered with urine and feces. He could not explain to me why he waited so long to come in for assessment. Denies trauma or injury. Patient indicates to me in no uncertain terms that his desires to continue to live at home with all possible. Prefers not to live in an alternate living setting such as assisted living facility or custodial facility. His main concern today is ongoing weakness. Denies focal weakness. Acknowledges generalized weakness. Denies arthralgias or myalgias. Exam Narrative: Exam Narrative: When I 1st examined and he is sound asleep. I come back and visit him later when he is awake. He appears comfortable and in no acute distress. He is seemingly alert and oriented to self, place, in part to time, in part to situation. Articulate, friendly, cooperative. Mood and affect are congruent. Seems oblivious that his current living situation is actually dangerous for him. He focuses on his desire to remain home and does not address the obvious difficulties of remaining home safely. Ordinarily he lives alone. Vision and hearing are grossly normal. Normal tympanic membranes. Dry buccal mucosa. Mallampati class 3 airway. Neck is supple. Midline trachea. No lymphadenopathy in the head neck region. No JVD or hepatojugular reflux. No carotid bruits. Lungs are clear to auscultation. Heart tones with regular rhythm. Abdomen is obese with active bowel sounds, soft, nontender. Extremities without edema. Moves all 4 extremities without focal motor neurologic deficits. No petechiae, jaundice, or cyanosis. No rashes. Const: Vital Signs, click to edit/add: Vital Signs - 24 hr 11/26/22 12:45 11/26/22 12:46 11/26/22 12:57 Temperature Pulse Rate 100 100 Pulse Rate [Right Pulse Oximeter] Respiratory Rate Blood Pressure 95/48 L Blood Pressure [Le ft Arm] Pulse Oximetry 98 96 [facility] 13:02 11/26/22 13:03 11/26/22 13:15 Temperature Pulse Rate 100 98 97 Pulse Rate [Right Pulse Oximeter] Respiratory Rate Blood Pressure 87/52 L Blood Pressure [Le ft Arm] Pulse Oximetry 98 96 97 [facility] 11/26/22 13:38 11/26/22 13:45 11/26/22 14:05 Temperature Pulse Rate 98 96 141 H Pulse Rate [Right Pulse Oximeter] Respiratory Rate Blood Pressure Blood Pressure [Le ft Arm] Pulse Oximetry 99 99 92 [facility] 11/26/22 14:06 11/26/22 14:15 11/26/22 14:25 Temperature Pulse Rate 93 94 Pulse Rate [Right Pulse Oximeter] Respiratory Rate Blood Pressure 85/75 L 89/52 L Blood Pressure [Le ft Arm] Pulse Oximetry 97 99 [facility] 11/26/22 14:33 11/26/22 14:34 11/26/22 14:35 Temperature Pulse Rate 94 96 95 Pulse Rate [Right Pulse Oximeter] Respiratory Rate Blood Pressure 105/56 L Blood Pressure [Le ft Arm] Pulse Oximetry 100 100 99 [facility] 11/26/22 14:45 11/26/22 14:55 11/26/22 14:56 Temperature Pulse Rate 96 93 93 Pulse Rate [Right Pulse Oximeter] Respiratory Rate Blood Pressure 110/50 L Blood Pressure [Le ft Arm] Pulse Oximetry 100 98 98 [facility] 11/26/22 15:00 11/26/22 15:15 11/26/22 15:30 Temperature Pulse Rate 93 93 91 Pulse Rate [Right Pulse Oximeter] Respiratory Rate Blood Pressure Blood Pressure [Le ft Arm] Pulse Oximetry 98 98 100 [facility] 11/26/22 16:58 11/26/22 17:07 11/26/22 17:07 Temperature 98.5 F Pulse Rate 93 Pulse Rate [Right Pulse Oximeter] 92 Respiratory Rate 16 18 18 Blood Pressure 103/57 L Blood Pressure [Le ft Arm] 115/46 L Pulse Oximetry 99 99 [facility] Room Air 11/26/22 17:13 11/26/22 17:58 11/26/22 19:00 Temperature 98.5 F Pulse Rate 91 88 101 H Pulse Rate [Right Pulse Oximeter] Respiratory Rate 18 18 Blood Pressure 115/46 L 117/51 L Blood Pressure [Le ft Arm] Pulse Oximetry 99 100 [facility] 11/26/22 19:23 11/26/22 19:50 11/26/22 21:00 Temperature 98.8 F 98 F Pulse Rate 98 97 Pulse Rate [Right Pulse Oximeter] Respiratory Rate 18 18 18 Blood Pressure 110/59 L 126/57 L Blood Pressure [Le ft Arm] Pulse Oximetry 98 98 [facility] 11/26/22 22:30 11/26/22 23:00 11/26/22 23:23 Temperature 99 F Pulse Rate 91 Pulse Rate [Right Pulse Oximeter] 97 Respiratory Rate 18 18 Blood Pressure Blood Pressure [Le ft Arm] 125/54 L Pulse Oximetry 100 Oxygen Delivery [facility] Room Air 11/27/22 00:34 11/27/22 00:55 11/27/22 01:55 Temperature 99.4 F 99.3 F 99.4 F Pulse Rate 92 91 91 Pulse Rate [Right Pulse Oximeter] Respiratory Rate 18 16 16 Blood Pressure 128/62 137/59 L 129/63 Blood Pressure [Le ft Arm] Pulse Oximetry 97 97 98 [facility] 11/27/22 02:55 11/27/22 03:30 11/27/22 08:24 Temperature 99.2 F 98.9 F Pulse Rate 88 84 79 Pulse Rate [Right Pulse Oximeter] Respiratory Rate 18 16 Blood Pressure 122/79 122/59 L Blood Pressure [Le ft Arm] Pulse Oximetry 96 97 [facility] 11/27/22 08:45 11/27/22 11:45 Temperature 97 F L 98.2 F Pulse Rate Pulse Rate [Right Pulse Oximeter] 82 86 Respiratory Rate 16 18 Blood Pressure Blood Pressure [Le ft Arm] 144/66 H 138/70 Pulse Oximetry 97 86 L Oxygen Delivery Me thod Room Air Room Air Labs Labs: Laboratory Results - last 24 hr 11/26/22 11/26/22 11/26/22 13:20 13:20 13:20 WBC 1.73 L* RBC 2.09 L Hgb 7.1 L* Hct 20.5 L MCV 98 MCH 34 MCHC 34 RDW Coeff of [place] 17.9 H Plt Count 129 L Neut % (Auto) 62.7 Lymph % (Auto) 23.4 [place] % (Auto) 8.9 Eos % (Auto) 3.8 Baso % (Auto) 0.6 Neut # (Auto) 1.10 L Lymph # (Auto) 0.40 L [place] # (Auto) 0.20 Eos # (Auto) 0.10 Baso # (Auto) 0.00 Abs Immat Gran (auto) 0.00 Imm/Tot Granulo (auto) 0.6 Diff Slide Review Acceptable Review ESR > 102 H Sodium Cancelled 134 L Potassium Cancelled 4.5 Chloride Cancelled Carbon Dioxide Anion Gap BUN Creatinine Estimated Creat Clear Estimated GFR Glucose Lactate Calcium Total Bilirubin Direct Bilirubin AST ALT Alkaline Phosphatase Ammonia Total Creatine Kinase Troponin I C-Reactive Protein Total Protein Albumin Lipase TSH Urine Color Urine Appearance Urine pH Ur Specific [place] Urine Protein Urine Glucose (UA) Urine Ketones Urine Blood Urine Nitrite Urine Bilirubin Urine Urobilinogen Ur Leukocyte Esterase Urine RBC Urine WBC Ur Squamous Epith Cells Urine Bacteria Stl C. diff Tox B Gene Stl C. diff 027-NAP1-BI Ethyl Alcohol SARS-CoV-2 (PCR) Influenza Type A (PCR) Influenza Type B (PCR) RSV (PCR) POC Troponin I Blood Type Antibody Screen Crossmatch ([facility]) 11/26/22 11/26/22 11/26/22 13:20 13:20 13:20 WBC RBC Hgb Hct MCV MCH MCHC RDW Coeff of [place] Plt Count Neut % (Auto) Lymph % (Auto) [place] % (Auto) Eos % (Auto) Baso % (Auto) Neut # (Auto) Lymph # (Auto) [place] # (Auto) Eos # (Auto) Baso # (Auto) Abs Immat Gran (auto) Imm/Tot Granulo (auto) Diff Slide Review ESR Sodium Potassium Chloride 101 Carbon Dioxide Cancelled 20 Anion Gap Cancelled BUN Cancelled 43 H Creatinine Cancelled Estimated Creat Clear Estimated GFR Glucose Lactate Calcium Total Bilirubin Direct Bilirubin AST ALT Alkaline Phosphatase Ammonia Total Creatine Kinase Troponin I C-Reactive Protein Total Protein Albumin Lipase TSH Urine Color Urine Appearance Urine pH Ur Specific [place] Urine Protein Urine Glucose (UA) Urine Ketones Urine Blood Urine Nitrite Urine Bilirubin Urine Urobilinogen Ur Leukocyte Esterase Urine RBC Urine WBC Ur Squamous Epith Cells Urine Bacteria Stl C. diff Tox B Gene Stl C. diff 027-NAP1-BI Ethyl Alcohol SARS-CoV-2 (PCR) Influenza Type A (PCR) Influenza Type B (PCR) RSV (PCR) POC Troponin I Blood Type Antibody Screen Crossmatch ([facility]) 11/26/22 11/26/22 11/26/22 13:20 13:20 13:20 WBC RBC Hgb Hct MCV MCH MCHC RDW Coeff of [place] Plt Count Neut % (Auto) Lymph % (Auto) [place] % (Auto) Eos % (Auto) Baso % (Auto) Neut # (Auto) Lymph # (Auto) [place] # (Auto) Eos # (Auto) Baso # (Auto) Abs Immat Gran (auto) Imm/Tot Granulo (auto) Diff Slide Review ESR Sodium Potassium Chloride Carbon Dioxide Anion Gap BUN Creatinine 2.0 H Estimated Creat Clear Cancelled Estimated GFR Cancelled 35 Glucose Cancelled 160 H Lactate 1.1 Calcium Cancelled Total Bilirubin Direct Bilirubin AST ALT Alkaline Phosphatase Ammonia Total Creatine Kinase Troponin I C-Reactive Protein Total Protein Albumin Lipase TSH Urine Color Urine Appearance Urine pH Ur Specific [place] Urine Protein Urine Glucose (UA) Urine Ketones Urine Blood Urine Nitrite Urine Bilirubin Urine Urobilinogen Ur Leukocyte Esterase Urine RBC Urine WBC Ur Squamous Epith Cells Urine Bacteria Stl C. diff Tox B Gene Stl C. diff 027-NAP1-BI Ethyl Alcohol SARS-CoV-2 (PCR) Influenza Type A (PCR) Influenza Type B (PCR) RSV (PCR) POC Troponin I Blood Type Antibody Screen Crossmatch ([facility]) 11/26/22 11/26/22 11/26/22 13:20 13:20 13:20 WBC RBC Hgb Hct MCV MCH MCHC RDW Coeff of [place] Plt Count Neut % (Auto) Lymph % (Auto) [place] % (Auto) Eos % (Auto) Baso % (Auto) Neut # (Auto) Lymph # (Auto) [place] # (Auto) Eos # (Auto) Baso # (Auto) Abs Immat Gran (auto) Imm/Tot Granulo (auto) Diff Slide Review ESR Sodium Potassium Chloride Carbon Dioxide Anion Gap BUN Creatinine Estimated Creat Clear Estimated GFR Glucose Lactate Calcium 8.5 Total Bilirubin 2.1 H Direct Bilirubin 0.2 AST 24 ALT 13 Alkaline Phosphatase 54 Ammonia < 9.0 L Total Creatine Kinase 42 L Cancelled Troponin I < 0.01 L C-Reactive Protein Cancelled 6.4 H Total Protein 6.1 Albumin 3.3 Lipase 17 L TSH 1.090 Urine Color Urine Appearance Urine pH Ur Specific [place] Urine Protein Urine Glucose (UA) Urine Ketones Urine Blood Urine Nitrite Urine Bilirubin Urine Urobilinogen Ur Leukocyte Esterase Urine RBC Urine WBC Ur Squamous Epith Cells Urine Bacteria Stl C. diff Tox B Gene Stl C. diff [id number]-NAP1-BI Ethyl Alcohol < 0.01 L SARS-CoV-2 (PCR) Influenza Type A (PCR) Influenza Type B (PCR) RSV (PCR) POC Troponin I Blood Type Antibody Screen Crossmatch ([facility]) 11/26/22 11/26/22 11/26/22 13:20 14:52 23:10 WBC RBC Hgb 7.1 L* Hct MCV MCH MCHC RDW Coeff of [place] Plt Count Neut % (Auto) Lymph % (Auto) [place] % (Auto) Eos % (Auto) Baso % (Auto) Neut # (Auto) Lymph # (Auto) [place] # (Auto) Eos # (Auto) Baso # (Auto) Abs Immat Gran (auto) Imm/Tot Granulo (auto) Diff Slide Review ESR Sodium Potassium Chloride Carbon Dioxide Anion Gap BUN Creatinine Estimated Creat Clear Estimated GFR Glucose Lactate Calcium Total Bilirubin Direct Bilirubin AST ALT Alkaline Phosphatase Ammonia Total Creatine Kinase Troponin I C-Reactive Protein Total Protein Albumin Lipase TSH Urine Color Yellow Urine Appearance Cloudy A Urine pH 5.0 Ur Specific [place] 1.020 Urine Protein 1+ A Urine Glucose (UA) Negative Urine Ketones 1+ A Urine Blood Trace-intact A Urine Nitrite Negative Urine Bilirubin 2+ A Urine Urobilinogen 0.2 Ur Leukocyte Esterase 1+ A Urine RBC 0-2 Urine WBC 25-50 A Ur Squamous Epith Cells Few Urine Bacteria Many A Stl C. diff Tox B Gene Stl C. diff [id number]-NAP1-BI Ethyl Alcohol Cancelled SARS-CoV-2 (PCR) Negative SARS-CoV-2 Influenza Type A (PCR) Negative PCR FLU A Influenza Type B (PCR) Negative PCR FLU B RSV (PCR) Negative PCR RSV POC Troponin I 0.01 Blood Type A Positive Antibody Screen NEGATIVE Crossmatch ([facility]) See Detail 11/27/22 11/27/22 06:36 Unknown WBC 1.23 L* RBC 2.42 L Hgb 8.0 L Hct 23.2 L MCV 96 MCH 33 MCHC 35 RDW Coeff of [place] 16.9 H Plt Count 112 L Neut % (Auto) 60.2 Lymph % (Auto) 26.8 [place] % (Auto) 6.5 Eos % (Auto) 4.9 Baso % (Auto) 0.8 Neut # (Auto) 0.70 L Lymph # (Auto) 0.30 L [place] # (Auto) 0.10 Eos # (Auto) 0.10 Baso # (Auto) 0.00 Abs Immat Gran (auto) 0.00 Imm/Tot Granulo (auto) 0.8 Diff Slide Review ESR Sodium 137 Potassium 4.1 Chloride 106 Carbon Dioxide 22 Anion Gap BUN 36 H Creatinine 1.7 H Estimated Creat Clear 43.06 Estimated GFR 43 Glucose 165 H Lactate Calcium 8.0 L Total Bilirubin 1.3 Direct Bilirubin AST 17 ALT 10 Alkaline Phosphatase 44 Ammonia Total Creatine Kinase Troponin I C-Reactive Protein Total Protein 5.5 L Albumin 3.1 L Lipase TSH Urine Color Urine Appearance Urine pH Ur Specific [place] Urine Protein Urine Glucose (UA) Urine Ketones Urine Blood Urine Nitrite Urine Bilirubin Urine Urobilinogen Ur Leukocyte Esterase Urine RBC Urine WBC Ur Squamous Epith Cells Urine Bacteria Stl C. diff Tox B Gene POSITIVE A* Stl C. diff [id number] PRESUMPTIVE NEGATIVE Ethyl Alcohol SARS-CoV-2 (PCR) Influenza Type A (PCR) Influenza Type B (PCR) RSV (PCR) POC Troponin I Blood Type Antibody Screen Crossmatch ([facility])
--- NOTE | 2022-11-27 12:54 | PC.NURSE ---
PT/OT with pt. up to chair from side of bed with walker, belt and asst of 2. He states he wants to go back to bed. enc him to stay up awhile
--- NOTE | 2022-11-27 13:38 | PC.NURSE ---
with chair alarm on. He got back to bed himself. bed alarm and scds on. Changed lg inc stool and urine. states he goes on his own at home but her its easier to go in his pants and be changed. positioned on his side. 2 lg inc urine and 1 lg inc stool today. enc tcdb
--- NOTE | 2022-11-27 14:39 | PC.NURSE ---
talked with Petros sister Corey. She states he has many levels and stairs in his home. states he mainly stays in bed and doesnt usually make it to the bathroom. He has others waste picker groceries for him. Shes concerned about him going home.
[2022-11-27] MEDS: cefTRIAXone 2 GM in 0.9 % SODIUM CHLORIDE Mini-bag 100 ML IVPB (15:46)
[2022-11-27] MEDS: TACROLIMUS 0.5 MG CAPSULE 1.5 MG PO (20:45)
--- NOTE | 2022-11-27 22:27 | PC.NURSE ---
Shift note: Pt has been in bed throughout the shift. Alert and oriented, able to make needs known. Pt complained of headache and back pain and was managed with Tylenol and Deluded. Vitally stable. Pt had 1x incontinent loose stool. Pt refused to take diner rather asked for apple juice.
[2022-11-28] VITALS (10 sets, daily range): BP systolic 145–159; BP diastolic 70–84; PULSE 79–102; RESP 12–18; TEMP 36.5–37.2; O2SAT 96–99
--- NOTE | 2022-11-28 07:16 | PC.NURSE ---
23-07: pleasant and cooperative. calls appropriately. T&R. VSS. Blood Culture came back positive for Gram Pos Cocci - MD to be updated upon arrival to floor.
[2022-11-28 09:15] LABS: Lactate* 0.7 mmol/L (0.5-1.9)
[2022-11-28] MEDS: azaTHIOprine 50 MG TABLET 150 MG PO (09:17)
[2022-11-28] MEDS: TACROLIMUS 0.5 MG CAPSULE 2 MG PO (09:17)
[2022-11-28] MEDS: allopurinoL 100 MG TABLET PO (09:17)
[2022-11-28] MEDS: TAMSULOSIN HCL 0.4 MG CAPSULE PO (09:17)
[2022-11-28] MEDS: PANTOPRAZOLE SODIUM 40 MG INJ IVP (09:17)
[2022-11-28] MEDS: SODIUM CHLORIDE 0.9 % (FLUSH) 10 ML SYRINGE 5 ML IVF ×2 (09:18→21:22)
[2022-11-28 09:21] LABS: Immature Reticulocyte Fraction 18.9 % (2.3-13.4); Reticulocyte Hemoglobin Equivi 37.7 pg (29.0-35.0); Reticulocyte Percent 2.5 % (0.5-2.0); Reticulocytes Absolute 0.07 # (0.03-0.08)
[2022-11-28 09:42] LABS: Albumin* 3.5 g/dL (3.3-5.0); Chloride* 105 mmol/L (96-114); Sodium* 135 mmol/L (135-149)
[2022-11-28 09:43] LABS: INR 1.09 (0.91-1.10); Potassium* 4.4 mmol/L (3.6-5.1); Prothrombin Time 14.8 Seconds
[2022-11-28 09:44] LABS: Creatinine* 1.2 mg/dL (0.5-1.5); Est. Creatinine Clearance* 61.01; Estimated Glomerular Filt Rate 65 ml/min; Partial Thromboplastin Time* 29 Seconds (23-33)
[2022-11-28 09:45] LABS: Alkaline Phosphatase* 59 U/L (40-150); Aspartate Amino Transferase* 19 U/L (12-35); Bilirubin Total* 1.6 mg/dL (0.1-1.5); Blood Urea Nitrogen* 21 mg/dL (7-30); Carbon Dioxide* 22 mmol/L (20-32); Glucose* 175 mg/dL (60-115); Lactate Dehydrogenase* 240 U/L (120-246); Total Protein* 6.4 g/dL (6.0-8.3)
[2022-11-28 09:46] LABS: Alanine Aminotransferase* 12 U/L (4-50); Calcium* 8.7 mg/dL (8.4-10.6); Magnesium* 1.2 mg/dL (1.5-2.6); Phosphorus* 2.8 mg/dL (2.5-4.5)
[2022-11-28 09:48] LABS: C Reactive Protein* 3.7 mg/dL (0.5-1.0)
[2022-11-28 09:55] LABS: NT Pro B Type NatriureticPept* 2650 pg/mL
[2022-11-28] MEDS: 0.9 % SODIUM CHLORIDE 1000 ml 1,000 ML 75 ML IV (13:53)
[2022-11-28] MEDS: cefTRIAXone 2 GM in 0.9 % SODIUM CHLORIDE Mini-bag 100 ML IVPB (15:50)
--- NOTE | 2022-11-28 15:51 | P.IMPN_ITS ---
Progress Note: A&P Assessment and plan (1) Pancytopenia: Problem details: Etiology not yet determined. Doubt related to sepsis. Iatrogenic etiology possible including from aspirin, allopurinol, azathioprine, and furosemide. Consider primary bone marrow failure, infectious and noninfectious causes, verses bone marrow infiltrative processes, such as malignant versus non- malignant etiologies. Status: Acute (2) BPH (benign prostatic hyperplasia): Status: Acute (3) Hyperlipidemia: Status: Acute (4) Pain syndrome, chronic: Status: Acute (5) GERD (gastroesophageal reflux disease): Status: Acute (6) CHF (congestive heart failure): Status: Acute (7) Acute renal failure superimposed on stage 3 chronic kidney disease: Problem details: Baseline creatinine 1.1-1.3. On 11/26/2022 creatinine is 2.0. Status: Acute (8) Declining functional status: Status: Acute (9) Physical debility: Status: Acute (10) Blood culture positive for microorganism: Problem details: Suspect skin contaminant. Status: Acute Assessment and Plan: Repeat blood cultures. (11) E. coli urinary tract infection: Problem details: Pansensitive organism. On IV ceftriaxone. Status: Acute Plan 1. Reviewed impressions with patient 2. Answered his questions 3. He is willing to continue with current treatment plans 4. Continue to monitor CBC and blood cultures 5. Continue with IV ceftriaxone while awaiting repeat blood cultures and ID and sensitivity of Gram-positive cocci from blood culture obtained on admission 6. Continue with plans for at least short-term transitional care services and possibly longer depending on how his condition evolves. I again had a sterling conversation with the patient's suggesting to him that based on the trajectory of his physical decline that it is hard to conceive that he will be able to live long-term in his home alone hereafter. He states he would like to at least try. 7. Patient agreeable with above stated plans and recommendations. Time Spent With Patient Total time spent: 40 Subjective Time Seen by Provider: 08:00 Date Seen: 11/28/22 Interval history: Hospital day 3. HPI: Bari Mora is a 72 year old male with complicated past medical history of CHF, HTN, GERD, Type II DM with peripheral neuropathy, pancytopenia, hx of c diff colitis, hx of liver/kidney transplant and frequent hospital admissions presenting for evaluation of generalized weakness. He endorsed bilateral leg weakness. He was noted to be hypotensive by EMS. He endorsed fatigue. He denies diarrhea but was noted to be covered in feces upon arrival to ED. He denies chest pain, sob, abdominal pain, diarrhea, fever. In the ED notable labs included wbc 1.7, hgb 7.1, plt 129, lactate WNL. His SBP was noted to be in 90s. He was afebrile. CXR no acute findings. In the ED he was given IVF and 1 unit of PRBC. Generally unchanged. Denies increased concerns, weakness, pain. Does not think he has any worse or better. He acknowledges he does in fact required transitional care services. Denies fevers, rigors, diaphoresis. Denies dysuria, urgency, frequency, hematuria. Had a bout of loose stools this morning. Recent stool testing for C diff was equivocal particularly given the paucity of symptoms to suggest active disease process. Exam Narrative: Exam Narrative: I examine him in his hospital room. Appears comfortable and in no acute distress. Vision and hearing are grossly normal. Alert, oriented to self, place, time, situation. Friendly, articulate, cooperative. Mood and affect are congruent. Lungs are clear to auscultation. Heart tones with regular rhythm without murmur, gallop, rub. Abdomen is obese with active bowel sounds, soft, nontender. Extremities without edema. No focal motor neurologic deficits. Skin is intact. No petechiae, rashes, wounds, or cyanosis. Microbiology lab notified us that patient had 1 blood culture on admission that is growing out Gram-positive cocci in clusters. Noteworthy is that patient is not have any signs or symptoms of sepsis. Patient is on IV ceftriaxone. Urine culture grew out pansensitive E coli. Patient on IV ceftriaxone. Const: Vital Signs, click to edit/add: Vital Signs - 24 hr 11/27/22 16:45 11/27/22 19:00 11/27/22 23:00 Temperature 98.2 F Pulse Rate 91 72 Pulse Rate [Right Pulse Oximeter] 84 Respiratory Rate 18 Blood Pressure [Le ft Arm] 138/64 Pulse Oximetry 96 Oxygen Delivery Me thod Room Air 11/27/22 23:00 11/27/22 23:00 11/28/22 03:00 Temperature 98.3 F 98.7 F Pulse Rate Pulse Rate [Right Pulse Oximeter] 74 74 83 Respiratory Rate 18 18 18 Blood Pressure [Le ft Arm] 147/71 H 151/81 H Pulse Oximetry 97 97 Oxygen Delivery Me thod Room Air Room Air 11/28/22 07:08 11/28/22 08:36 11/28/22 08:36 Temperature 98 F Pulse Rate 79 Pulse Rate [Right Pulse Oximeter] 80 80 Respiratory Rate 12 12 Blood Pressure [Le ft Arm] 159/70 H Pulse Oximetry 97 Oxygen Delivery [facility] Room Air 11/28/22 11:27 11/28/22 15:00 Temperature 98.7 F Pulse Rate 91 Pulse Rate [Right Pulse Oximeter] 87 Respiratory Rate 16 Blood Pressure [Le ft Arm] 147/80 H Pulse Oximetry 96 Oxygen Delivery [facility] Room Air Labs Labs: Laboratory Results - last 24 hr 11/28/22 09:10 Absolute Retic 0.07 Percent Retic 2.5 H Immature Retic Fraction 18.9 H Retic Hgb Equivalent 37.7 H INR 1.09 APTT 29 Sodium 135 Potassium 4.4 Chloride 105 Carbon Dioxide 22 BUN 21 Creatinine 1.2 Estimated Creat Clear 61.01 Estimated GFR 65 Glucose 175 H Lactate 0.7 Calcium 8.7 Phosphorus 2.8 Magnesium 1.2 L Total Bilirubin 1.6 H AST 19 ALT 12 Alkaline Phosphatase 59 Lactate Dehydrogenase 240 C-Reactive Protein 3.7 H NT-Pro-B Natriuret Pep 2650 Total Protein 6.4 Albumin 3.5
[2022-11-28] MEDS: MAGNESIUM IV 2 GM/50 ML PIGGYBACK IVPB (16:56)
--- NOTE | 2022-11-28 18:10 | PC.NURSE ---
End of Shift: Patient pleasant and cooperative, A/O. Patient vitally stable, lungs clear, BS WNL, IV currently running magnesium, otherwise NS at 75. Patient 1 assist, walker, gb. Patient had 1 incontinence of bowel and bladder, otherwise patient has used commode and toilet to urinate. Patient has had 2 BM's today. Patient only had dinner today, eating about 50%. Tele=NSR. Patient was up in chair for about 15 minutes and insisted on getting back in bed .
[2022-11-28] MEDS: TACROLIMUS 0.5 MG CAPSULE 1.5 MG PO (21:16)
[2022-11-28] MEDS: HYDROmorphone 0.5 mg/0.5 ml inj IVP (21:21)
[2022-11-29] VITALS (9 sets, daily range): BP systolic 134–154; BP diastolic 59–76; PULSE 67–81; RESP 18–22; TEMP 36.6–37.3; O2SAT 95–98; BMI 32.8
[2022-11-29] MEDS: HYDROmorphone 0.5 mg/0.5 ml inj IVP ×2 (00:08→05:20)
[2022-11-29] MEDS: SODIUM CHLORIDE 0.9 % (FLUSH) 10 ML SYRINGE 5 ML IVF ×2 (00:09→05:21)
[2022-11-29] MEDS: ACETAMINOPHEN 325 MG TABLET 650 MG PO (02:49)
[2022-11-29] MEDS: 0.9 % SODIUM CHLORIDE 1000 ml 1,000 ML 75 ML IV ×2 (05:20→17:20)
--- NOTE | 2022-11-29 06:39 | PC.NURSE ---
19-07: pleasant and cooperative. Uses urinal at bedside. c/o neuropathy to BLE, rating pain 10/10, prn dilaudid given & Tylenol, offered some relief, pt reports taking gabapentin BID @ home, will update provider upon arrival to floor about increased pain. VSS. Afebrile.
[2022-11-29 07:20] LABS: Basophils Percent Auto 0.7 % (0.0-3.0); Hematocrit 23.7 % (37.0-53.0); Hemoglobin* 8.3 gm/dL (13.5-17.5); Immature Granulocytes Pct Auto 0.7 %; Lymphocytes Percent Auto 25.9 % (20-44); Mean Corpuscular HGB Conc 35 gm/dL (32-36); Mean Corpuscular Hemoglobin 33 pg (26-34); Mean Corpuscular Volume 94 fL (80-100); Monocytes Percent Auto 5.6 % (0.0-11.0); Neutrophils Percent Auto 60.1 % (42.0-72.0); Platelet Count* 158 K/uL (140-440); RDW Coefficient of Variation % 16.2 % (11.5-15.5); Red Blood Count 2.52 m/uL (4.30-5.90)
[2022-11-29 07:35] LABS: Alanine Aminotransferase* 10 U/L (4-50); Alkaline Phosphatase* 53 U/L (40-150); Aspartate Amino Transferase* 18 U/L (12-35); Bilirubin Direct* 0.1 mg/dL (0.0-0.5); Bilirubin Total* 1.4 mg/dL (0.1-1.5); Magnesium* 1.5 mg/dL (1.5-2.6); Total Protein* 5.5 g/dL (6.0-8.3)
[2022-11-29 08:07] LABS: Slide Review Reflex Yes; White Blood Count* 1.43 K/uL (4.50-11.00)
[2022-11-29 08:08] LABS: Slide Review Acceptable Review (Acceptable)
[2022-11-29] MEDS: TACROLIMUS 0.5 MG CAPSULE 2 MG PO (08:30)
[2022-11-29] MEDS: azaTHIOprine 50 MG TABLET 150 MG PO (08:30)
[2022-11-29] MEDS: fentaNYL 25 MCG/HR PATCH 1 PATCH TRANSDERMA (08:30)
[2022-11-29] MEDS: CITALOPRAM HYDROBROMIDE 20 MG TABLET 40 MG PO (08:31)
[2022-11-29] MEDS: GABAPENTIN 600 MG TABLET PO ×2 (08:31→21:07)
[2022-11-29] MEDS: allopurinoL 100 MG TABLET PO (08:31)
[2022-11-29] MEDS: TAMSULOSIN HCL 0.4 MG CAPSULE PO (08:31)
[2022-11-29] MEDS: CLOPIDOGREL 75 MG TABLET PO (08:31)
[2022-11-29] MEDS: METOPROLOL TARTRATE 25 MG TABLET PO ×2 (08:31→21:07)
[2022-11-29] MEDS: OMEPRAZOLE 20 MG CAPSULE DR 40 MG PO (08:31)
[2022-11-29] MEDS: AMOXICILLIN 250 MG CAPSULE 500 MG PO ×3 (09:13→21:07)
[2022-11-29] MEDS: VANCOMYCIN 125 MG CAPSULE PO ×3 (12:33→21:08)
--- NOTE | 2022-11-29 15:37 | PM.IMPN1 ---
Progress Note: A&P Assessment and plan (1) Pancytopenia: Problem details: Etiology not yet determined. Doubt related to sepsis. Iatrogenic etiology possible including from aspirin, allopurinol, azathioprine, and furosemide. Consider primary bone marrow failure, infectious and noninfectious causes, verses bone marrow infiltrative processes, such as malignant versus non-malignant etiologies. Status: Acute (2) BPH (benign prostatic hyperplasia): Status: Acute (3) Hyperlipidemia: Status: Acute (4) Pain syndrome, chronic: Status: Acute (5) GERD (gastroesophageal reflux disease): Status: Acute (6) CHF (congestive heart failure): Status: Acute (7) Acute renal failure superimposed on stage 3 chronic kidney disease: Problem details: Baseline creatinine 1.1-1.3. On 11/26/2022 creatinine is 2.0. Status: Acute (8) Declining functional status: Problem details: Unable to transfer and ambulate without assistance. Not able to demonstrate ability to care for self independently in his home. Have recommended short-term transitional care services at minimum, which he is willing to consider, and have also been discussing with him daily the idea of him requiring long-term correction facility care hereafter, which at the moment he does not want to pursue. Status: Acute (9) Physical debility: Status: Acute (10) Blood culture positive for microorganism: Problem details: Gram-positive cocci identified as micrococcus luteus, consistent with skin contaminant. Status: Acute (11) E. coli urinary tract infection: Problem details: Pansensitive organism. Initially on IV ceftriaxone. Switch to oral amoxicillin. Will need to complete a full 2 week course. Status: Acute (12) Recurrent Clostridioides difficile diarrhea: Problem details: Current testing positive for toxin B, and negative for DNA sequencing of C diff 027-NAP1-BI. Restarting oral vancomycin 11/29/2022. Will need 14 day treatment. Status: Acute Plan 1. Continue with plans as specified above. 2. Patient agreeable to above stated plans and recommendations. 3. Await transitional care services availability in our community. 4. Continue with PT and OT interventions here in the hospital for now. Time Spent With Patient Total time spent: 35 minutes Subjective Time Seen by Provider: 08:00 Date Seen: 11/29/22 Interval history: Hospital day 4. HPI: Bari Mora is a 72 year old male with complicated past medical history of CHF, HTN, GERD, Type II DM with peripheral neuropathy, pancytopenia, hx of c diff colitis, hx of liver/kidney transplant and frequent hospital admissions presenting for evaluation of generalized weakness. He endorsed bilateral leg weakness. He was noted to be hypotensive by EMS. He endorsed fatigue. He denies diarrhea but was noted to be covered in feces upon arrival to ED. He denies chest pain, sob, abdominal pain, diarrhea, fever. In the ED notable labs included wbc 1.7, hgb 7.1, plt 129, lactate WNL. His SBP was noted to be in 90s. He was afebrile. CXR no acute findings. In the ED he was given IVF and 1 unit of PRBC. Generally unchanged. No new symptoms. Does not think he is any worse or better. He acknowledges he does in fact required transitional care services. Denies fevers, rigors, diaphoresis. Denies dysuria, urgency, frequency, hematuria. Has had multiple loose stools since yesterday morning. Exam Narrative: Exam Narrative: Examined in his hospital room. Appears comfortable in no acute distress. Vision and hearing are grossly normal. Alert and oriented to self, place, time, situation. Friendly, articulate, cooperative. Mood and affect are congruent. No focal motor neurologic deficits. Cranial nerves 3-12 grossly normal. Neck is full. Neck is supple. Midline trachea. Lungs clear to auscultation without wheezing, rhonchi, or rales. Heart tones with regular rhythm, normal S1-S2. Abdomen with active bowel sounds, soft, nontender. No rebound, no guarding. Extremities without edema. Skin is intact. Const: Vital Signs, click to edit/add: Vital Signs - 24 hr 11/28/22 16:07 11/28/22 16:07 11/28/22 19:00 Temperature 97.7 F 97.8 F Pulse Rate Pulse Rate [Right Pulse Oximeter] 102 H 102 H 86 Respiratory Rate 16 16 18 Blood Pressure [Le ft Arm] 150/84 H 145/75 H Pulse Oximetry 98 99 Oxygen Delivery Me thod Room Air Room Air 11/28/22 21:54 11/28/22 22:38 11/28/22 23:00 Temperature 99 F Pulse Rate 82 Pulse Rate [Right Pulse Oximeter] 81 Respiratory Rate 18 18 Blood Pressure [Le ft Arm] 149/72 H Pulse Oximetry 98 Oxygen Delivery Me thod Room Air 11/29/22 03:00 11/29/22 08:08 11/29/22 09:00 Temperature 97.8 F 98.2 F Pulse Rate 80 Pulse Rate [Right Pulse Oximeter] 79 77 Respiratory Rate 18 22 Blood Pressure [Le ft Arm] 154/76 H 154/75 H Pulse Oximetry 98 98 Oxygen Delivery Me thod Room Air Room Air 11/29/22 10:53 Temperature 98.4 F Pulse Rate Pulse Rate [Right Pulse Oximeter] 67 Respiratory Rate 20 Blood Pressure [Le ft Arm] 134/59 L Pulse Oximetry 95 Oxygen Delivery Me thod Room Air Labs Labs: Laboratory Results - last 24 hr 11/29/22 06:55 WBC 1.43 L* RBC 2.52 L Hgb 8.3 L Hct 23.7 L MCV 94 MCH 33 MCHC 35 RDW Coeff of [place] 16.2 H Plt Count 158 Neut % (Auto) 60.1 Lymph % (Auto) 25.9 [place] % (Auto) 5.6 Eos % (Auto) 7.0 Baso % (Auto) 0.7 Neut # (Auto) 0.90 L Lymph # (Auto) 0.40 L [place] # (Auto) 0.10 Eos # (Auto) 0.10 Baso # (Auto) 0.00 Abs Immat Gran (auto) 0.00 Imm/Tot Granulo (auto) 0.7 Diff Slide Review Acceptable Review Magnesium 1.5 Total Bilirubin 1.4 Direct Bilirubin 0.1 AST 18 ALT 10 Alkaline Phosphatase 53 Total Protein 5.5 L Albumin 3.0 L
--- NOTE | 2022-11-29 16:42 | PC.SOCIAL ---
Discahrge planning: Met with pt regarding d/c plan. Pt requested short term rehab placement at [facility] or [facility]. He lives in [place] but has heard negative things about the [place] facility and is not interested in placement there. Called and faxed information to [facility]. Awaiting call back with decision on admit. magazine worker to follow up as needed.
--- NOTE | 2022-11-29 17:30 | PC.NURSE ---
Addendum entered by Janeen Louis RN 11/29/22 19:08: MD updated about EKG and chest pain. Addendum entered by Janeen Louis RN 11/29/22 18:50: Patient up to bathroom @ 1830, once back to bed c/o pain ranging from left chest to left foot, EKG performed, medical charge entry specialist updated. Once patient back to bed stated pain no longer present. Original Note: Shift Summary: Patient pleasant and cooperative. Up with one assist, walker and gait belt. Patient states he doesn't usually eat much, agreeable to breakfast and dinner today. C/o severe pain 10/10 this morning, received a fentanyl patch and within an hour rated pain 4/10. Patient refusing to sit in recliner for meals stating its too uncomfortable, also does not like our straight back chairs, when in bed eating HOB fully up. Continues to have loose BM.
[2022-11-29] MEDS: ATORVASTATIN 10 MG TABLET 20 MG PO (21:05)
[2022-11-29] MEDS: TACROLIMUS 0.5 MG CAPSULE 1.5 MG PO (21:06)
[2022-11-29] MEDS: DOXAZOSIN 4 MG TABLET PO (21:07)
[2022-11-30] VITALS (14 sets, daily range): BP systolic 109–150; BP diastolic 49–83; PULSE 60–72; RESP 12–20; TEMP 36.5–37.1; O2SAT 96–98
[2022-11-30] MEDS: 0.9 % SODIUM CHLORIDE 1000 ml 1,000 ML 75 ML IV (04:35)
--- NOTE | 2022-11-30 06:39 | PC.NURSE ---
19-07: pleasant and cooperative. Uses urinal at bedside. No c/o pain. VSS. Afebrile.
[2022-11-30 06:45] LABS: Hematocrit 22.6 % (37.0-53.0); Mean Corpuscular HGB Conc 35 gm/dL (32-36); Mean Corpuscular Hemoglobin 33 pg (26-34); Mean Corpuscular Volume 94 fL (80-100); Platelet Count* 163 K/uL (140-440)
[2022-11-30 06:46] LABS: Lactate* 0.4 mmol/L (0.5-1.9)
[2022-11-30 06:51] LABS: Hemoglobin* 7.8 gm/dL (13.5-17.5); Slide Review Reflex No; White Blood Count* 1.64 K/uL (4.50-11.00)
[2022-11-30] MEDS: OMEPRAZOLE 20 MG CAPSULE DR 40 MG PO (07:26)
[2022-11-30 07:33] LABS: Chloride* 105 mmol/L (96-114)
[2022-11-30 07:34] LABS: Potassium* 4.6 mmol/L (3.6-5.1); Sodium* 133 mmol/L (135-149)
[2022-11-30 07:37] LABS: Blood Urea Nitrogen* 16 mg/dL (7-30); Carbon Dioxide* 24 mmol/L (20-32); Est. Creatinine Clearance* 73.21; Estimated Glomerular Filt Rate 81 ml/min
[2022-11-30 07:38] LABS: Calcium* 8.1 mg/dL (8.4-10.6); Glucose* 173 mg/dL (60-115); Magnesium* 1.3 mg/dL (1.5-2.6); Phosphorus* 3.4 mg/dL (2.5-4.5)
[2022-11-30 07:40] LABS: C Reactive Protein* 1.9 mg/dL (0.5-1.0)
[2022-11-30] MEDS: azaTHIOprine 50 MG TABLET 150 MG PO (08:36)
[2022-11-30] MEDS: TAMSULOSIN HCL 0.4 MG CAPSULE PO (08:37)
[2022-11-30] MEDS: VANCOMYCIN 125 MG CAPSULE PO ×4 (08:37→21:07)
[2022-11-30] MEDS: METOPROLOL TARTRATE 25 MG TABLET PO ×2 (08:37→21:07)
[2022-11-30] MEDS: GABAPENTIN 600 MG TABLET PO ×2 (08:37→21:07)
[2022-11-30] MEDS: allopurinoL 100 MG TABLET PO (08:37)
[2022-11-30] MEDS: AMOXICILLIN 250 MG CAPSULE 500 MG PO ×3 (08:37→21:08)
[2022-11-30] MEDS: CLOPIDOGREL 75 MG TABLET PO (08:37)
[2022-11-30] MEDS: TACROLIMUS 0.5 MG CAPSULE 2 MG PO (08:37)
[2022-11-30] MEDS: CITALOPRAM HYDROBROMIDE 20 MG TABLET 40 MG PO (08:37)
[2022-11-30] MEDS: MAGNESIUM IV 2 GM/50 ML PIGGYBACK IVPB (10:46)
[2022-11-30] MEDS: ACETAMINOPHEN 325 MG TABLET 650 MG PO ×2 (11:18→22:38)
--- NOTE | 2022-11-30 13:52 | P.IMPN_ITS ---
Progress Note: A&P Assessment and plan (1) Pancytopenia: Problem details: Etiology not yet determined. Doubt related to sepsis. Iatrogenic etiology possible including from aspirin, allopurinol, azathioprine, and furosemide. Consider primary bone marrow failure, infectious and noninfectious causes, verses bone marrow infiltrative processes, such as malignant versus non- malignant etiologies. Status: Acute Assessment and Plan: 11/30/2022: White blood cell count slightly improved. Platelet count slightly improved. Hemoglobin down to 7.8. No obvious overt blood loss. We have held his allopurinol since he has been in house. Will continue to hold his allopurinol. Transfuse with 1 unit of packed red blood cells today. Monitor response. I suspect his low hemoglobin, thus oxygen carrying capacity, has a lot to do with his exertional chest discomfort that he had transiently previously. (2) BPH (benign prostatic hyperplasia): Status: Acute (3) Hyperlipidemia: Status: Acute (4) Pain syndrome, chronic: Status: Acute (5) GERD (gastroesophageal reflux disease): Status: Acute (6) CHF (congestive heart failure): Problem details: 11/30/2022 weight 106.8 kg. Status: Acute (7) Acute renal failure superimposed on stage 3 chronic kidney disease: Problem details: Baseline creatinine 1.1-1.3. On 11/26/2022 creatinine was 2.0. On 11/30/2022 creatinine is 1.0. Status: Acute Assessment and Plan: Discontinue IV fluids. (8) Declining functional status: Problem details: Unable to transfer and ambulate without assistance. Not able to demonstrate ability to care for self independently in his home. Have recommended short-term transitional care services at minimum, which he is willing to consider, and have also been discussing with him daily the idea of him requiring long-term detention facility care hereafter, which at the moment he does not want to pursue. Status: Acute Assessment and Plan: 11/30/2022: Continue with inpatient PT and OT efforts. Continues to demonstrate inability to safely care for himself in his own home independently. Continues to meet criteria for transitional care services at this time. Again discussed with patient the idea of long-term detention support and he once again indicated he prefers to try to go back home with on all possible. (9) Physical debility: Status: Acute (10) Blood culture positive for microorganism: Problem details: Gram-positive cocci identified as micrococcus luteus, consistent with skin contaminant. Status: Acute (11) E. coli urinary tract infection: Problem details: Pansensitive organism. Initially on IV ceftriaxone. Switch to oral amoxicillin. Will need to complete a full 2 week course. Status: Acute (12) Recurrent Clostridioides difficile diarrhea: Problem details: Current testing positive for toxin B, and negative for DNA sequencing of C diff 027-NAP1-BI. Restarting oral vancomycin 11/29/2022. Will need 14 day treatment. Status: Acute Plan 1. Reviewed above impression and plans with patient. 2. Answered his questions to satisfaction. 3. Patient grew above stated plan recommendations. Time Spent With Patient Total time spent: 50 minutes Subjective Time Seen by Provider: 09:00 Date Seen: 11/30/22 Interval history: Hospital day 5. HPI: Bari Mora is a 72 year old male with complicated past medical history of CHF, HTN, GERD, Type II DM with peripheral neuropathy, pancytopenia, hx of c diff colitis, hx of liver/kidney transplant and frequent hospital admissions presenting for evaluation of generalized weakness. He endorsed bilateral leg weakness. He was noted to be hypotensive by EMS. He endorsed fatigue. He denies diarrhea but was noted to be covered in feces upon arrival to ED. He denies chest pain, sob, abdominal pain, diarrhea, fever. In the ED notable labs included wbc 1.7, hgb 7.1, plt 129, lactate WNL. His SBP was noted to be in 90s. He was afebrile. CXR no acute findings. In the ED he was given IVF and 1 unit of PRBC. Had transient episode of chest discomfort with movement. Electrocardiogram and troponin I's were negative. Notes he is feeling more fatigued and weak today. Denies fevers, rigors, diaphoresis. Denies dysuria, urgency, frequency, hematuria. Continues to have intermittent loose stools. Exam Narrative: Exam Narrative: Examine him in his hospital room. Appears comfortable in no acute distress lying in his bed. Able to transfer from supine to sitting independently. Alert and oriented to self, place, time, situation. Articulate cooperative. Mood and affect are congruent. Lungs are clear to auscultation. No CVA tenderness. Heart tones with regular rhythm. Abdomen with active bowel sounds, soft, nontender. Extremities without edema. Const: Vital Signs, click to edit/add: Vital Signs - 24 hr 11/29/22 15:44 11/29/22 16:03 11/29/22 20:00 Temperature 99 F 99.1 F Pulse Rate 77 Pulse Rate [Right Pulse Oximeter] 79 81 Respiratory Rate 18 18 Blood Pressure Blood Pressure [Le ft Arm] 154/71 H 149/69 H Pulse Oximetry 96 97 Oxygen Delivery Me thod Room Air Room Air 11/29/22 23:00 11/29/22 23:00 11/29/22 23:54 Temperature 98.8 F Pulse Rate 69 Pulse Rate [Right Pulse Oximeter] 73 Respiratory Rate 18 18 Blood Pressure Blood Pressure [Le ft Arm] 138/62 Pulse Oximetry 97 Oxygen Delivery Me thod Room Air 11/30/22 04:40 11/30/22 07:14 11/30/22 07:30 Temperature 98.4 F 97.9 F Pulse Rate 69 Pulse Rate [Right Pulse Oximeter] 71 72 Respiratory Rate 18 20 Blood Pressure Blood Pressure [Le ft Arm] 150/83 H 147/69 H Pulse Oximetry 98 97 Oxygen Delivery Me thod Room Air Room Air 11/30/22 11:00 11/30/22 13:48 Temperature 98.6 F 97.8 F Pulse Rate 66 Pulse Rate [Right Pulse Oximeter] 65 Respiratory Rate 14 16 Blood Pressure 123/55 L Blood Pressure [Le ft Arm] 109/50 L Pulse Oximetry 96 98 Oxygen Delivery Me thod Room Air Documenting provider has reviewed patient's vital signs: yes Labs Labs: Laboratory Results - last 24 hr 11/30/22 11/30/22 05:36 06:34 WBC 1.64 L* RBC 2.40 L Hgb 7.8 L* Hct 22.6 L MCV 94 MCH 33 MCHC 35 Plt Count 163 Sodium 133 L Potassium 4.6 Chloride 105 Carbon Dioxide 24 BUN 16 Creatinine 1.0 Estimated Creat Clear 73.21 Estimated GFR 81 Glucose 173 H Lactate 0.4 L Calcium 8.1 L Phosphorus 3.4 Magnesium 1.3 L C-Reactive Protein 1.9 H Blood Type A Positive Antibody Screen NEGATIVE Crossmatch ([facility]) See Detail
--- NOTE | 2022-11-30 15:50 | PC.SOCIAL ---
Discharge planning: Pt requested placement for rehab at a facility in [place] or [place]. Information has been faxed to [facility] and [facility]. Awaiting call back with decision on admit. electrical worker to follow up as needed.
[2022-11-30 17:31] LABS: Hematocrit 26.6 % (37.0-53.0); Hemoglobin* 9.1 gm/dL (13.5-17.5); Mean Corpuscular HGB Conc 34 gm/dL (32-36); Mean Corpuscular Hemoglobin 32 pg (26-34); Mean Corpuscular Volume 94 fL (80-100); Platelet Count* 166 K/uL (140-440); Red Blood Count 2.82 m/uL (4.30-5.90)
[2022-11-30 17:40] LABS: Slide Review Reflex No; White Blood Count* 1.75 K/uL (4.50-11.00)
[2022-11-30 17:52] LABS: Chloride* 106 mmol/L (96-114)
[2022-11-30 17:53] LABS: Potassium* 5.3 mmol/L (3.6-5.1); Sodium* 133 mmol/L (135-149)
[2022-11-30 17:55] LABS: Carbon Dioxide* 24 mmol/L (20-32); Est. Creatinine Clearance* 73.21; Estimated Glomerular Filt Rate 81 ml/min
[2022-11-30 17:56] LABS: Blood Urea Nitrogen* 17 mg/dL (7-30); Calcium* 8.4 mg/dL (8.4-10.6); Glucose* 185 mg/dL (60-115)
--- NOTE | 2022-11-30 18:55 | PC.NURSE ---
End of Shift: Patient pleasant and cooperative. Patient vitally stable, lungs clear, BS WNL, IV's intact and SL. Patient 1 assist, walker, gb. Patient reported headache once today, tylenol given. Patient received 1 unit of blood and tolerated it well. Patient has been sleeping in bed all day. Patient tolerating regular diet, urinating, and had 2 BM's. Blood sugars 257 and 176. Tele= NSR.
[2022-11-30] MEDS: TACROLIMUS 0.5 MG CAPSULE 1.5 MG PO (21:07)
[2022-11-30] MEDS: ATORVASTATIN 10 MG TABLET 20 MG PO (21:07)
[2022-11-30] MEDS: DOXAZOSIN 4 MG TABLET PO (21:08)
[2022-11-30] MEDS: SODIUM CHLORIDE 0.9 % (FLUSH) 10 ML SYRINGE 5 ML IVF (21:10)
[2022-11-30] MEDS: HYDROmorphone 0.5 mg/0.5 ml inj IVP (21:19)
[2022-12-01] VITALS (7 sets, daily range): BP systolic 113–134; BP diastolic 53–67; PULSE 57–72; RESP 16–18; TEMP 36.7–37.1; O2SAT 96–98
[2022-12-01] MEDS: OXYCODONE 5 MG TABLET PO (03:18)
[2022-12-01] MEDS: OMEPRAZOLE 20 MG CAPSULE DR 40 MG PO (06:22)
[2022-12-01 06:45] LABS: Hematocrit 25.6 % (37.0-53.0); Hemoglobin* 8.8 gm/dL (13.5-17.5); Mean Corpuscular HGB Conc 34 gm/dL (32-36); Mean Corpuscular Hemoglobin 32 pg (26-34); Mean Corpuscular Volume 94 fL (80-100); Platelet Count* 174 K/uL (140-440); Red Blood Count 2.72 m/uL (4.30-5.90)
[2022-12-01 07:04] LABS: Slide Review Reflex No; White Blood Count* 1.77 K/uL (4.50-11.00)
[2022-12-01 07:11] LABS: Magnesium* 1.6 mg/dL (1.5-2.6); Phosphorus* 3.5 mg/dL (2.5-4.5)
[2022-12-01 07:14] LABS: C Reactive Protein* 1.2 mg/dL (0.5-1.0)
--- NOTE | 2022-12-01 07:23 | PC.NURSE ---
End of shift [id number] report: Alert and oriented x 4. Reports pain to bilateral feet, pain is managed with prn medications. Patient also reporting headache, utilized prn tylenol and ice pack which was effective. Voiding using urinal, urine dark isa, encouraged to increase fluid intake. No bowel movements this shift. Bowel sounds hyperactive, abdomen round, non tender, denies any nausea. Bail Agent encouraged patient to transfer into recliner this AM, patient declined stating that the chair is too uncomfortable. Bilateral LE non pitting edema, per patient he has swelling at baseline.
[2022-12-01] MEDS: CITALOPRAM HYDROBROMIDE 20 MG TABLET 40 MG PO (08:47)
[2022-12-01] MEDS: METOPROLOL TARTRATE 25 MG TABLET PO ×2 (08:47→20:52)
[2022-12-01] MEDS: CLOPIDOGREL 75 MG TABLET PO (08:48)
[2022-12-01] MEDS: TACROLIMUS 0.5 MG CAPSULE 2 MG PO (08:48)
[2022-12-01] MEDS: AMOXICILLIN 250 MG CAPSULE 500 MG PO ×3 (08:48→20:52)
[2022-12-01] MEDS: VANCOMYCIN 125 MG CAPSULE PO ×4 (08:48→20:52)
[2022-12-01] MEDS: GABAPENTIN 600 MG TABLET PO ×2 (08:48→20:52)
[2022-12-01] MEDS: azaTHIOprine 50 MG TABLET 150 MG PO (08:48)
[2022-12-01] MEDS: TAMSULOSIN HCL 0.4 MG CAPSULE PO (08:50)
[2022-12-01] MEDS: fentaNYL 25 MCG/HR PATCH 1 PATCH TRANSDERMA (08:50)
[2022-12-01] MEDS: SODIUM CHLORIDE 0.9 % (FLUSH) 10 ML SYRINGE 5 ML IVF ×2 (08:50→20:53)
[2022-12-01 11:29] LABS: NT Pro B Type NatriureticPept* 1620 pg/mL
--- NOTE | 2022-12-01 12:56 | P.IMPN_ITS ---
Progress Note: A&P Assessment and plan (1) Pancytopenia: Problem details: Etiology not yet determined. Doubt related to sepsis. Iatrogenic etiology possible including from aspirin, allopurinol, azathioprine, and furosemide. Consider primary bone marrow failure, infectious and noninfectious causes, verses bone marrow infiltrative processes, such as malignant versus non- malignant etiologies. Status: Acute Assessment and Plan: Allopurinol on hold. Hemoglobin 8.8 today. Pre-transfusion yesterday was 7.9. Received 1 unit packed red blood cells yesterday. (2) BPH (benign prostatic hyperplasia): Status: Acute (3) Hyperlipidemia: Status: Acute (4) Pain syndrome, chronic: Status: Acute (5) GERD (gastroesophageal reflux disease): Status: Acute (6) CHF (congestive heart failure): Problem details: 11/30/2022 weight 106.8 kg. 12/01/2022 weight 100 kg. Status: Acute (7) Acute renal failure superimposed on stage 3 chronic kidney disease: Problem details: Baseline creatinine 1.1-1.3. On 11/26/2022 creatinine was 2.0. On 11/30/2022 creatinine is 1.0. Status: Acute (8) Declining functional status: Problem details: Unable to transfer and ambulate without assistance. Not able to demonstrate ability to care for self independently in his home. Have recommended short-term transitional care services at minimum, which he is willing to consider, and have also been discussing with him daily the idea of him requiring long-term penitentiary facility care hereafter, which at the moment he does not want to pursue. Status: Acute (9) Physical debility: Problem details: Chronic. At the very minimum, he warrants transitional care services in a penitentiary facility before considering the possibility of being able to return home safely. Status: Acute (10) Blood culture positive for microorganism: Problem details: Gram-positive cocci identified as micrococcus luteus, consistent with skin contaminant. Status: Acute (11) E. coli urinary tract infection: Problem details: Pansensitive organism. Initially on IV ceftriaxone. Switch to oral amoxicillin. Will need to complete a full 2 week course. On 12/01/2022 he has completed 6/14 days. Status: Acute (12) Recurrent Clostridioides difficile diarrhea: Problem details: Current testing positive for toxin B, and negative for DNA sequencing of C diff 027-NAP1-BI. Restarting oral vancomycin 11/29/2022. Will need 14 day treatment. Last dose will be on the evening of 12/12/2022. Status: Acute Plan 1. Reviewed impression and plans with patient. He is agreeable. 2. Continue with the same. 3. Await penitentiary facility placement for transitional care services. Time Spent With Patient Total time spent: 40 minutes Subjective Time Seen by Provider: 07:30 Date Seen: 12/01/22 Interval history: Hospital day 6. HPI: Bari Mora is a 72 year old male with complicated past medical history of CHF, HTN, GERD, Type II DM with peripheral neuropathy, pancytopenia, hx of c diff colitis, hx of liver/kidney transplant and frequent hospital admissions presenting for evaluation of generalized weakness. He endorsed bilateral leg weakness. He was noted to be hypotensive by EMS. He endorsed fatigue. He denies diarrhea but was noted to be covered in feces upon arrival to ED. He denies chest pain, sob, abdominal pain, diarrhea, fever. In the ED notable labs included wbc 1.7, hgb 7.1, plt 129, lactate WNL. His SBP was noted to be in 90s. He was afebrile. CXR no acute findings. In the ED he was given IVF and 1 unit of PRBC. Tolerated 1 unit of packed red blood cell transfusion again yesterday. First unit of packed red blood cell he received was on admission, 11/26/2022. Second unit of packed red blood cell transfusion he received was yesterday, 11/30/2022, with pre-transfusion hemoglobin 7.8 and post transfusion hemoglobin 9.1. Since his transfusion yesterday he has not had a recurrence of exertional chest discomfort. Denies dyspnea at rest. Still quite physically disabled. Spends much of his day laying down in bed. Requires assist with transfers and ambulation. Denies fevers, rigors, diaphoresis. Denies dysuria, urgency, frequency, hematuria. Has not had loose stools now for the better part of a day. Exam Narrative: Exam Narrative: I examine him in his bed in his hospital room. Appears comfortable no acute distress. Patient hearing are grossly normal. Alert and oriented to self, place, time, situation. Continues to not have realistic expectations about possibly being able to return home safely hereafter. Talkative and cooperative. Mood and affect are congruent. Neck is supple. Lungs clear to auscultation. Heart tones with regular rhythm. Abdomen with active bowel sounds, soft, nontender. Extremities without edema. Moves all 4 extremities. No focal motor neurologic deficits. Const: Vital Signs, click to edit/add: Vital Signs - 24 hr 11/30/22 13:48 11/30/22 14:07 11/30/22 15:05 Temperature 97.8 F 98.5 F 98.5 F Pulse Rate 66 64 62 Pulse Rate [Right Pulse Oximeter] Respiratory Rate 16 14 16 Blood Pressure 123/55 L 117/60 126/60 Blood Pressure [Le ft Arm] Pulse Oximetry 98 96 96 Oxygen Delivery Me thod 11/30/22 15:06 11/30/22 15:06 11/30/22 16:04 Temperature 98.5 F 97.7 F Pulse Rate 60 Pulse Rate [Right Pulse Oximeter] 62 62 Respiratory Rate 16 16 16 Blood Pressure 124/60 Blood Pressure [Le ft Arm] 126/60 Pulse Oximetry 98 98 Oxygen Delivery Me thod Room Air 11/30/22 16:18 11/30/22 16:28 11/30/22 17:14 Temperature 98.6 F 98.5 F Pulse Rate 60 63 63 Pulse Rate [Right Pulse Oximeter] Respiratory Rate 12 12 Blood Pressure 127/61 139/63 Blood Pressure [Le ft Arm] Pulse Oximetry 98 98 Oxygen Delivery Me thod 11/30/22 19:00 11/30/22 23:00 11/30/22 23:00 Temperature 98.7 F 98.7 F Pulse Rate 69 Pulse Rate [Right Pulse Oximeter] 70 72 Respiratory Rate 16 18 Blood Pressure Blood Pressure [Le ft Arm] 113/49 L 124/50 L Pulse Oximetry 97 97 Oxygen Delivery Me thod Room Air Room Air 12/01/22 03:00 12/01/22 07:32 12/01/22 08:41 Temperature 98.2 F 98.0 F Pulse Rate 64 Pulse Rate [Right Pulse Oximeter] 64 67 Respiratory Rate 16 18 Blood Pressure Blood Pressure [Le ft Arm] 121/67 122/61 Pulse Oximetry 98 97 Oxygen Delivery Me thod Room Air Room Air 12/01/22 11:48 Temperature 98.1 F Pulse Rate Pulse Rate [Right Pulse Oximeter] 57 L Respiratory Rate 18 Blood Pressure Blood Pressure [Le ft Arm] 134/61 Pulse Oximetry 97 Oxygen Delivery Me thod Room Air Documenting provider has reviewed patient's vital signs: yes Labs Labs: Laboratory Results - last 24 hr 11/30/22 11/30/22 12/01/22 05:36 17:25 06:15 WBC 1.75 L* 1.77 L* RBC 2.82 L 2.72 L Hgb 9.1 L 8.8 L Hct 26.6 L 25.6 L MCV 94 94 MCH 32 32 MCHC 34 34 Plt Count 166 174 Sodium 133 L Potassium 5.3 H Chloride 106 Carbon Dioxide 24 BUN 17 Creatinine 1.0 Estimated Creat Clear 73.21 Estimated GFR 81 Glucose 185 H Calcium 8.4 Phosphorus 3.5 Magnesium 1.6 C-Reactive Protein 1.2 H NT-Pro-B Natriuret Pep 1620 Lab Acknowledgement Blood Type A Positive Antibody Screen NEGATIVE Crossmatch ([facility]) See Detail 12/01/22 10:57 WBC RBC Hgb Hct MCV MCH MCHC Plt Count Sodium Potassium Chloride Carbon Dioxide BUN Creatinine Estimated Creat Clear Estimated GFR Glucose Calcium Phosphorus Magnesium C-Reactive Protein NT-Pro-B Natriuret Pep Lab Acknowledgement Test Added Blood Type Antibody Screen Crossmatch ([facility])
[2022-12-01 14:47] LABS: Chloride* 106 mmol/L (96-114); Sodium* 133 mmol/L (135-149)
[2022-12-01 14:48] LABS: Potassium* 4.9 mmol/L (3.6-5.1)
[2022-12-01 14:50] LABS: Est. Creatinine Clearance* 73.21; Estimated Glomerular Filt Rate 81 ml/min
[2022-12-01 14:51] LABS: Blood Urea Nitrogen* 19 mg/dL (7-30); Calcium* 8.3 mg/dL (8.4-10.6); Carbon Dioxide* 21 mmol/L (20-32); Glucose* 166 mg/dL (60-115)
--- NOTE | 2022-12-01 14:51 | PC.SOCIAL ---
Addendum entered by LUCILA Watts 12/01/22 16:44: Met with pt and provided him with information on chcf facilities in the area. Updated pt that I have not heard a decision from [facility] but need to be checking other facilities in case [facility] is not able to accept. Provided pt with list of chcf facilities in the area. He will look this over and make a list that can be contacted. sorting livestock worker to follow up tomorrow. Original Note: Discharge plan: Pt is being evaluated by [facility]. Left multiple messages at these facilities requesting update on assessment. Awaiting call back with decision on admit. Also left message for [facility] regarding bed availability. Received call from Makenna Marquez at [facility], stating she has received a report regarding concerns of safety and ability for pt to care for himself at home. Melony is requesting update on where placement is found for pt as she will follow up with accepting facility regarding encouraging him to remain in a chcf facility if he is unsafe for discharge home after rehab stay. Social work to follow up as needed.
[2022-12-01 15:22] LABS: Chloride* 105 mmol/L (96-114); Sodium* 134 mmol/L (135-149)
[2022-12-01 15:25] LABS: Creatinine* 1.2 mg/dL (0.5-1.5); Est. Creatinine Clearance* 61.01; Estimated Glomerular Filt Rate 65 ml/min
[2022-12-01 15:26] LABS: Blood Urea Nitrogen* 19 mg/dL (7-30); Calcium* 8.6 mg/dL (8.4-10.6); Carbon Dioxide* 24 mmol/L (20-32); Glucose* 197 mg/dL (60-115)
--- NOTE | 2022-12-01 18:10 | PC.NURSE ---
Pt alert and oriented. Pt had complaints of a headache; resolved with ice pack and eating lunch. Pt?s fentanyl patch was replaced this am; location left shoulder. Pt refused to sit up in chair during shift. Pt worked with therapy but otherwise refused to get out of bed. Pt napped on and off throughout shift. Pt was incontinent of B & B this shift. Pt refused breakfast, Pt was leery about ordering lunch or supper check writer salesperson spoke with him and Pt ended up being willing to eat. Pt is awaiting placement at a SNF for rehab.? ?
[2022-12-01] MEDS: ATORVASTATIN 10 MG TABLET 20 MG PO (20:52)
[2022-12-01] MEDS: TACROLIMUS 0.5 MG CAPSULE 1.5 MG PO (20:52)
[2022-12-01] MEDS: DOXAZOSIN 4 MG TABLET PO (20:53)
[2022-12-02 03:00] VITALS: BP 117/55; PULSE 67; RESP 16; TEMP 36.6; O2SAT 98
--- NOTE | 2022-12-02 06:15 | PC.NURSE ---
End of shift: Patient alert and oriented x 4, denies nay pain this shift. Continent of bowel and bladder. Bowel sounds active, patient griffin done moderate loose stool this shift. Transfers with minimal assist of 1, ambulates with walker, gait belt and SBA. Non pitting edema to bilateral lower extremities. Transdermal patch intact to left shoulder.
[2022-12-02] MEDS: OMEPRAZOLE 20 MG CAPSULE DR 40 MG PO (06:36)
[2022-12-02 07:14] LABS: Mean Corpuscular HGB Conc 33 gm/dL (32-36); Mean Corpuscular Hemoglobin 32 pg (26-34); Mean Corpuscular Volume 97 fL (80-100); Platelet Count* 191 K/uL (140-440); Red Blood Count 2.79 m/uL (4.30-5.90)
[2022-12-02 07:52] LABS: Slide Review Reflex No; White Blood Count* 1.86 K/uL (4.50-11.00)
--- NOTE | 2022-12-02 09:02 | NUTR.NU ---
RDN with nutrition follow-up. Patient states that his appetite has been fair. Per nursing documentation, patient has been eating 100% of two meals daily on 11/30/22 and 12/01/22. This is an improvement from beginning of admission with eating only one meal a day. Patient states that he feels he has been eating well and notes that he has been eating more than he does at home. Current weight of 227lbs 12/02/22 shows weight loss of 8lbs or 3.4% since admission with a weight of 235lbs on 11/26/22. Of note, patient does have fluid impacting diagnosis. Patient denied all protein supplements at this time. We discussed available snacks. He will ask for them as needed. Patient states Meals are good here. RDN will continue monitor and follow-up PRN.
[2022-12-02 09:26] VITALS: BP 109/62; PULSE 61; RESP 18; TEMP 36.8; O2SAT 96
[2022-12-02] MEDS: CITALOPRAM HYDROBROMIDE 20 MG TABLET 40 MG PO (09:28)
[2022-12-02] MEDS: METOPROLOL TARTRATE 25 MG TABLET PO ×2 (09:28→21:33)
[2022-12-02] MEDS: CLOPIDOGREL 75 MG TABLET PO (09:28)
[2022-12-02] MEDS: TAMSULOSIN HCL 0.4 MG CAPSULE PO (09:28)
[2022-12-02] MEDS: azaTHIOprine 50 MG TABLET 150 MG PO (09:28)
[2022-12-02] MEDS: TACROLIMUS 0.5 MG CAPSULE 2 MG PO (09:28)
[2022-12-02] MEDS: VANCOMYCIN 125 MG CAPSULE PO ×4 (09:28→21:33)
[2022-12-02] MEDS: AMOXICILLIN 250 MG CAPSULE 500 MG PO ×3 (09:28→21:33)
[2022-12-02] MEDS: SODIUM CHLORIDE 0.9 % (FLUSH) 10 ML SYRINGE 5 ML IVF ×2 (09:29→21:34)
[2022-12-02] MEDS: GABAPENTIN 600 MG TABLET PO ×2 (09:29→21:34)
--- NOTE | 2022-12-02 11:01 | PC.SOCIAL ---
Addendum entered by Andressa Dillon LCSW 12/02/22 13:20: Discharge Planning: Patient was accepted by [facility] in [place] for tomorrow morning before noon. Informed patient that he was getting their last private room with private bathroom. Patient signed EMS transfer. Social work to follow up as needed. Original Note: Discharge Planning: Met with patient to discuss options of other facilities. Informed that there has been no call back yet from [facility]. Lito did not have any preference on any other facilities. He agreed to have this worker look into SNFs that were further out from [place]. [facility] in [place] is currently accessing. Social work to follow up.
[2022-12-02 12:47] VITALS: BP 132/62; PULSE 61; RESP 18; TEMP 36.8; O2SAT 96
--- NOTE | 2022-12-02 15:36 | P.IMPN_ITS ---
Progress Note: A&P Assessment and plan (1) Pancytopenia: Problem details: Etiology not yet determined. Doubt related to sepsis. Iatrogenic etiology possible including from aspirin, allopurinol, azathioprine, and furosemide. Consider primary bone marrow failure, infectious and noninfectious causes, verses bone marrow infiltrative processes, such as malignant versus non- malignant etiologies. Gradually improving. Did require 2 units of packed red blood cell transfusion in hospital. No apparent blood loss. Status: Acute (2) BPH (benign prostatic hyperplasia): Status: Acute (3) Hyperlipidemia: Status: Acute (4) Pain syndrome, chronic: Status: Acute (5) GERD (gastroesophageal reflux disease): Status: Acute (6) CHF (congestive heart failure): Problem details: 11/30/2022 weight 106.8 kg. 12/01/2022 weight 100 kg. Status: Acute (7) Acute renal failure superimposed on stage 3 chronic kidney disease: Problem details: Baseline creatinine 1.1-1.3. On 11/26/2022 creatinine was 2.0. On 11/30/2022 creatinine is 1.0. Status: Acute (8) Declining functional status: Problem details: Unable to transfer and ambulate without assistance. Not able to demonstrate ability to care for self independently in his home. Have recommended short-term transitional care services at minimum, which he is willing to consider, and have also been discussing with him daily the idea of him requiring long-term long term facility care hereafter, which at the moment he does not want to pursue. Status: Acute (9) Physical debility: Problem details: Chronic. At the very minimum, he warrants transitional care services in a long term facility before considering the possibility of being able to return home safely. Status: Acute (10) Blood culture positive for microorganism: Problem details: Gram-positive cocci identified as micrococcus luteus, consistent with skin contaminant. Status: Acute (11) E. coli urinary tract infection: Problem details: Pansensitive organism. Initially on IV ceftriaxone. Switch to oral amoxicillin. Will need to complete a full 2 week course. On 12/01/2022 he has completed 6/14 days. Status: Acute (12) Recurrent Clostridioides difficile diarrhea: Problem details: Current testing positive for toxin B, and negative for DNA sequencing of C diff [id number]. Restarting oral vancomycin 11/29/2022. Will need 14 day treatment. Last dose will be on the evening of 12/12/2022. Status: Acute Plan 1. Reviewed impression with patient. Answered his questions. 2. He is agreeable with above stated plans and recommendations. 3. Continue with efforts to try to establish a transitional care placement for him and possibly long-term placement. 4. I am told that [facility] now has an open case for him as a vulnerable adult and the [facility] follow with him hereafter. Time Spent With Patient Total time spent: 40 minutes Subjective Time Seen by Provider: 10:00 Date Seen: 12/02/22 Interval history: Hospital day 7. HPI: Bari Mora is a 72 year old male with complicated past medical history of CHF, HTN, GERD, Type II DM with peripheral neuropathy, pancytopenia, hx of c diff colitis, hx of liver/kidney transplant and frequent hospital admissions presenting for evaluation of generalized weakness. He endorsed bilateral leg weakness. He was noted to be hypotensive by EMS. He endorsed fatigue. He denies diarrhea but was noted to be covered in feces upon arrival to ED. He denies chest pain, sob, abdominal pain, diarrhea, fever. In the ED notable labs included wbc 1.7, hgb 7.1, plt 129, lactate WNL. His SBP was noted to be in 90s. He was afebrile. CXR no acute findings. In the ED he was given IVF and 1 unit of PRBC. Tolerating increased activities. Requires assist of 1 for transfers. Requires standby assist for ambulation. Poor endurance. Eating and drinking well. Denies nausea or vomiting. Denies fevers, rigors, diaphoresis. Denies dysuria, urgency, frequency, hematuria. Has not had loose stools now for the better part of a day. Exam Narrative: Exam Narrative: No acute distress. Alert and oriented to self, place, time, and somewhat to situation. His perception and desire for wanting to go home seem incongruent with his current situation. States he is willing to receive transitional care services. Friendly and cooperative. Mood and affect are congruent. Lungs clear to auscultation. Heart tones with regular rhythm. Abdomen with active bowel sounds, soft, nontender. No lower extremity edema. No focal neurologic deficits. Const: Vital Signs, click to edit/add: Vital Signs - 24 hr 12/01/22 19:00 12/01/22 23:00 12/02/22 03:00 Temperature 98.1 F 98.8 F 97.9 F Pulse Rate [Right Pulse Oximeter] 72 62 67 Respiratory Rate 18 18 16 Blood Pressure [Le ft Arm] 125/65 125/56 L 117/55 L Pulse Oximetry 96 96 98 Oxygen Delivery Me thod Room Air Room Air Room Air 12/02/22 09:26 12/02/22 12:47 Temperature 98.3 F 98.2 F Pulse Rate [Right Pulse Oximeter] 61 61 Respiratory Rate 18 18 Blood Pressure [Le ft Arm] 109/62 132/62 Pulse Oximetry 96 96 Oxygen Delivery Me thod Room Air Room Air Documenting provider has reviewed patient's vital signs: yes Labs Labs: Laboratory Results - last 24 hr 11/29/22 12/01/22 12/02/22 07:03 12:54 06:55 WBC 1.86 L* RBC 2.79 L Hgb 9.0 L Hct 27.0 L MCV 97 MCH 32 MCHC 33 Plt Count 191 Peripher Smr Path Cons See Scanned Report Lab Acknowledgement Test Added
[2022-12-02 16:20] LABS: Chloride* 105 mmol/L (96-114); Potassium* 5.1 mmol/L (3.6-5.1); Sodium* 134 mmol/L (135-149)
[2022-12-02 16:23] LABS: Creatinine* 1.3 mg/dL (0.5-1.5); Est. Creatinine Clearance* 56.31; Estimated Glomerular Filt Rate 59 ml/min
[2022-12-02 16:24] LABS: Blood Urea Nitrogen* 23 mg/dL (7-30); Calcium* 8.5 mg/dL (8.4-10.6); Carbon Dioxide* 20 mmol/L (20-32); Glucose* 216 mg/dL (60-115)
[2022-12-02 17:01] VITALS: BP 121/53; PULSE 68; RESP 18; TEMP 36.8; O2SAT 99
--- NOTE | 2022-12-02 18:29 | PC.NURSE ---
Pt alert and oriented. Pt pleasant and talkative. Pt walked in halls with PT today. Pt had no complaints of pain. Pt up with assist of one with gait belt and walker. VSS. Pt to discharge to [facility] in tomorrow 12/03. Pt?s brother called and updated with information.?
[2022-12-02 19:00] VITALS: BP 134/64; PULSE 71; RESP 16; TEMP 37.1; O2SAT 98
[2022-12-02] MEDS: TACROLIMUS 0.5 MG CAPSULE 1.5 MG PO (21:32)
[2022-12-02] MEDS: ATORVASTATIN 10 MG TABLET 20 MG PO (21:33)
[2022-12-02] MEDS: DOXAZOSIN 4 MG TABLET PO (21:33)
[2022-12-03 00:28] VITALS: BP 136/62; PULSE 72; RESP 16; RESP 18; TEMP 36.9; O2SAT 96
[2022-12-03 03:00] VITALS: BP 141/75; PULSE 67; RESP 16; TEMP 36.7; O2SAT 97
[2022-12-03] MEDS: OMEPRAZOLE 20 MG CAPSULE DR 40 MG PO (06:29)
[2022-12-03 06:50] LABS: Hematocrit 25.2 % (37.0-53.0); Hemoglobin* 8.6 gm/dL (13.5-17.5); Mean Corpuscular HGB Conc 34 gm/dL (32-36); Mean Corpuscular Hemoglobin 33 pg (26-34); Mean Corpuscular Volume 97 fL (80-100); Platelet Count* 188 K/uL (140-440)
[2022-12-03 07:00] VITALS: BP 125/57; PULSE 65; RESP 18; TEMP 36.9; O2SAT 98
--- NOTE | 2022-12-03 07:29 | PC.NURSE ---
Pt is oriented to self x3. Afebrile. Pt denies pain, chest pain, SOB, and N/V. Pt is tolerating a regular diet and voiding, pt using urinal to void overnight. Pt is up SBA with walker and gait belt. Pt slept throughout most of night. ?
[2022-12-03 07:52] LABS: White Blood Count* 1.62 K/uL (4.50-11.00)
[2022-12-03 07:53] LABS: Slide Review Reflex Yes
[2022-12-03 07:54] LABS: Slide Review Acceptable Review (Acceptable)
[2022-12-03 08:00] VITALS: BP 125/57; PULSE 65; RESP 18; TEMP 36.9; O2SAT 98
[2022-12-03] MEDS: TAMSULOSIN HCL 0.4 MG CAPSULE PO (09:19)
[2022-12-03] MEDS: METOPROLOL TARTRATE 25 MG TABLET PO (09:19)
[2022-12-03] MEDS: AMOXICILLIN 250 MG CAPSULE 500 MG PO (09:20)
[2022-12-03] MEDS: GABAPENTIN 600 MG TABLET PO (09:20)
[2022-12-03] MEDS: TACROLIMUS 0.5 MG CAPSULE 2 MG PO (09:20)
[2022-12-03] MEDS: CITALOPRAM HYDROBROMIDE 20 MG TABLET 40 MG PO (09:20)
[2022-12-03] MEDS: azaTHIOprine 50 MG TABLET 150 MG PO (09:21)
[2022-12-03] MEDS: VANCOMYCIN 125 MG CAPSULE PO (09:21)
[2022-12-03] MEDS: CLOPIDOGREL 75 MG TABLET PO (09:22)
[2022-12-03] MEDS: fentaNYL 25 MCG/HR PATCH 1 PATCH TRANSDERMA (09:24)
--- NOTE | 2022-12-03 13:18 | PC.NURSE ---
Pt d/c'ed via stretcher and transferred per EMS crew to [facility] in [place] at 11:10. Please see meds provided for BG of 256 and during scheduled med pass. Belonging packed up and sent w/pt who was dressed by Tiffany from OT.
--- NOTE | 2022-12-07 12:04 | PM.DS1 ---
DS: Providers Provider Time Seen by Provider: 09:00 Date Seen: 12/03/22 Date of admission: 11/26/22 15:45 Primary care physician: Rubén Boyle MD Admitting Clinician: Chino Bhakta MD Consults: 11/26/22 18:14 Consult to Occupational Therapy [CONS] Routine Comment: Reason(s) for OT Consult:: ADLs Prior to Discharge Any Restrictions?:: No Restrictions Consult to Physical Therapy [CONS] Routine Comment: Reason(s) for PT Consult:: Evaluate and Treat Any Restrictions?:: No Restrictions 11/26/22 23:26 Consult to Occupational Therapy [CONS] Routine Comment: Reason(s) for OT Consult:: Evaluate and Treat Any Restrictions?:: No Restrictions Consult to Physical Therapy [CONS] Routine Comment: Reason(s) for PT Consult:: Evaluate and Treat Any Restrictions?:: No Restrictions Consult to Senior Product Development Scientist [CONS] Routine Comment: Reason for Consult:: Social Service Consult Attending Physician on discharge: Chino Bhakta MD Date of Discharge: 12/03/22 DS: Diagnosis Discharge Diagnosis (1) Declining functional status: Status: Acute Problem details: Unable to transfer and ambulate without assistance. Not able to demonstrate ability to care for self independently in his home. Have recommended short-term transitional care services at minimum, which he is willing to consider, and have also been discussing with him daily the idea of him requiring long-term assisted facility care hereafter, which at the moment he does not want to pursue. (2) E. coli urinary tract infection: Status: Acute Problem details: Pansensitive organism. Initially on IV ceftriaxone. Switch to oral amoxicillin. Will need to complete a full 2 week course. On 12/01/2022 he has completed 6/14 days. (3) Recurrent Clostridioides difficile diarrhea: Status: Acute Problem details: Current testing positive for toxin B, and negative for DNA sequencing of C diff 027-NAP1-BI. Restarting oral vancomycin 11/29/2022. Will need 14 day treatment. Last dose will be on the evening of 12/12/2022. (4) Blood culture positive for microorganism: Status: Acute Problem details: Gram-positive cocci identified as micrococcus luteus, consistent with skin contaminant. (5) Acute renal failure superimposed on stage 3 chronic kidney disease: Status: Acute Problem details: Baseline creatinine 1.1-1.3. On 11/26/2022 creatinine was 2.0. On 11/30/2022 creatinine is 1.0. (6) Dehydration: Status: Acute (7) Pancytopenia: Status: Acute Problem details: Etiology not yet determined. Doubt related to sepsis. Iatrogenic etiology possible including from aspirin, allopurinol, azathioprine, and furosemide. Consider primary bone marrow failure, infectious and noninfectious causes, verses bone marrow infiltrative processes, such as malignant versus non-malignant etiologies. Gradually improving. Did require 2 units of packed red blood cell transfusion in hospital. No apparent blood loss. (8) Weakness: Status: Acute Problem details: Multifactorial, acute on chronic (9) Type 2 diabetes mellitus treated with insulin: Status: Acute Problem details: - A1c 6.3, covered with sliding scale. - Glucotrol 5 mg p.o. q.day started 11/06 (10) Physical debility: Status: Acute Problem details: Chronic. At the very minimum, he warrants transitional care services in a assisted facility before considering the possibility of being able to return home safely. DS: Summary Hospital Course Hospital Course: HPI: Bari Mora is a 72 year old male with complicated past medical history of CHF, HTN, GERD, Type II DM with peripheral neuropathy, pancytopenia, hx of c diff colitis, hx of liver/kidney transplant and frequent hospital admissions presenting for evaluation of generalized weakness. He endorsed bilateral leg weakness. He was noted to be hypotensive by EMS. He endorsed fatigue. He denies diarrhea but was noted to be covered in feces upon arrival to ED. He denies chest pain, sob, abdominal pain, diarrhea, fever. In the ED notable labs included wbc 1.7, hgb 7.1, plt 129, lactate WNL. His SBP was noted to be in 90s. He was afebrile. CXR no acute findings. In the ED he was given IVF and 1 unit of PRBC. In time we were able to identify the organism and adjust his antibiotics to reflect the organism causing his acute urinary tract infection. It was evident during the course of hospitalization that he had recurrent C diff diarrhea. He was re-initiated on oral vancomycin for the same and with plans to complete a full 14 day course of the same. Do consideration may need to be given to the possibility of an extended course of oral vancomycin, tapering. Tolerating increased activities. Requires assist of 1 for transfers. Requires standby assist for ambulation. Poor endurance. Eating and drinking well. Denies nausea or vomiting. Denies fevers, rigors, diaphoresis. Denies dysuria, urgency, frequency, hematuria. Has not had loose stools for about 3 days. Status at Discharge Functional status at discharge: uses cane/walker Overall status at discharge: patient is not back to baseline Time Spent with Patient Time attestation: Total time spent providing and/or coordinating discharge services: Time spent: Greater than 30 minutes Exam Narrative: Exam Narrative: No acute distress. Alert and oriented to self, place, time, and somewhat to situation. His perception and desire for wanting to go home seem incongruent with his current situation. States he is willing to receive transitional care services. Friendly and cooperative. Mood and affect are congruent. Lungs clear to auscultation. Heart tones with regular rhythm. Abdomen with active bowel sounds, soft, nontender. No lower extremity edema. No focal neurologic deficits. DS: Data Imaging Chest x-ray: Attestation: I have reviewed the pertinent imaging results. Radiologist's impression: Unremarkable chest x-ray without any acute findings. Discharge Plan Discharge Disposition: [facility] Date of Admission: 11/26/22 15:45 Attending Provider on Discharge: Chino Bhakta Primary Care Provider: Rubén Boyle Condition: Improved Anticipated Discharge Date/Time: 12/03/22 10:30 Discharge Medications: New acetaminophen 325 mg Tablet 650 mg PO Q6H PRN30 Days Qty: 50 0RF vancomycin 125 mg Capsule 125 mg PO QID 10 Days Qty: 40 0RF amoxicillin 250 mg Capsule 500 mg PO TID 3 Days Qty: 18 0RF insulin aspart U-100 [Novolog FlexPen U-100 Insulin] 100 unit/mL (3 mL) Insulin Pen See Rx Instructions .ROUTE .COMPLEX Qty: 15 0RF Rx Instructions: Slidding scale insulin dosing for glucose levels: less than 150, 0 units; 151-200, 3 units; 201-250, 6 units; 251-300, 9 units; 301-350, 12 units; 351-400, 15 units; greater than 400, notify clinician. Continued atorvastatin 20 mg tablet 20 mg PO HS Qty: 90 3RF citalopram [Celexa] 40 mg tablet 40 mg PO DAILY Qty: 90 3RF gabapentin 600 mg tablet 600 mg PO BID Qty: 180 3RF clopidogrel 75 mg tablet 75 mg PO DAILY glipizide 5 mg Tablet 5 mg PO DAILYWM Qty: 30 0RF doxazosin 4 mg tablet 4 mg PO HS insulin aspart U-100 100 unit/mL solution 100 unit subcut DAILY Qty: 10 0RF Patient Comments: VIA INSULIN PUMP Rx Instructions: Subcutaneous insulin pump aspirin [Adult Aspirin Regimen] 81 mg tablet,delayed release (DR/EC) 81 mg PO DAILY azathioprine 50 mg tablet 150 mg PO DAILY tacrolimus 0.5 mg capsule 1.5 - 2 mg PO BID Patient Comments: takes 4 CAPS (2MG) AM and 3 CAPS (1.5MG) PM ferrous sulfate 325 mg (65 mg iron) tablet 325 mg PO DAILY tamsulosin 0.4 mg capsule 0.4 mg PO DAILY omeprazole 20 mg capsule,delayed release(DR/EC) 40 mg PO DAILY cholecalciferol (vitamin D3) 25 mcg (1,000 unit) capsule 4,000 unit PO DAILY metoprolol tartrate 25 mg Tablet 25 mg PO BID Qty: 60 0RF oxycodone 5 mg tablet 5 mg PO Q6H PRN (Reason: pain) Qty: 20 0RF fentanyl 25 mcg/hr patch 72 hour 1 patch transdermal Q48H Qty: 15 0RF Discontinued furosemide 40 mg tablet 40 mg PO QAM PRN allopurinol 100 mg Tablet 100 mg PO DAILY Qty: 30 0RF multivitamin Tablet 1 tab PO DAILY Qty: 90 3RF Discharge Orders: Discharge Order (Routine); Ordered 12/03/22 Ordered By: Chino Bhakta Activity Level: Activity as Tolerated Discharge Diet: Diabetic Follow Up Appointments: [facility] [Outside] (Patient being discharged to [facility]) Rubén Boyle MD [Primary Care Provider] - Admit to: SNF Discharge Potential: Poor Length of Stay: 30-90 days Can use facility standing orders?: Yes Code Status: DNR/DNI TEDs: Bilateral Knee Rehab Potential: Fair Therapy: Physical Therapy and Occupational Therapy Therapy Orders: Evaluate and Treat Oxygen: No Urinary Catheter: No Orders are good >30 days: Yes Signature: Chino Bhakta
== END 2022-12-03 11:10 | DRG 809 ==
LOC: ED 15:00 → MEDSURG 15:39
PROVIDERS: Admitting Provider Internal Medicine; Emergency Provider Family Medicine; PCP Family Medicine; Visit Provider Hospitalist
DX: D61.818 Other pancytopenia (principal); A04.71 Enterocolitis due to Clostridium difficile, recurrent; N39.0 Urinary tract infection, site not specified; N17.9 Acute kidney failure, unspecified; I13.0 Hypertensive heart and chronic kidney disease with heart failure and stage 1 through stage 4 chronic kidney disease, or unspecified chronic kidney disease; Z94.0 Kidney transplant status; Z94.4 Liver transplant status; F32.1 Major depressive disorder, single episode, moderate; R53.1 Weakness; B96.20 Unspecified Escherichia coli [E. coli] as the cause of diseases classified elsewhere; E86.0 Dehydration; N18.30 Chronic kidney disease, stage 3 unspecified; D64.9 Anemia, unspecified; D63.8 Anemia in other chronic diseases classified elsewhere; F10.11 Alcohol abuse, in remission; G89.4 Chronic pain syndrome; E11.40 Type 2 diabetes mellitus with diabetic neuropathy, unspecified; Z79.4 Long term (current) use of insulin; Z95.2 Presence of prosthetic heart valve; I50.9 Heart failure, unspecified; E11.22 Type 2 diabetes mellitus with diabetic chronic kidney disease; R15.9 Full incontinence of feces; R32 Unspecified urinary incontinence; N48.5 Ulcer of penis; Z95.5 Presence of coronary angioplasty implant and graft; I34.0 Nonrheumatic mitral (valve) insufficiency; K21.9 Gastro-esophageal reflux disease without esophagitis; E78.5 Hyperlipidemia, unspecified; N40.0 Benign prostatic hyperplasia without lower urinary tract symptoms
CPT/HCPCS: 36415; 36430; 71046; 80048; 80053; 80076; 81001; 82077; 82140; 82550; 82962; 83605; 83615; 83690; 83735; 83880; 84100; 84443; 84484; 85018; 85025; 85027; 85045; 85610; 85651; 85730; 86140; 86850; 86900; 86901; 86922; 87040; 87086; 87186; 87493; 87631; 88184; 88185; 93005; 94761; 97116; 97161; 97166; 97530; 97535; 99285; G0378; A9270; C9113; J0696; J1170; J3475; J7030; J7050; J7500; J7507; P9016; P9047

== ENCOUNTER 2022-12-03 11:16 | Outpatient (CLI) | payer MEDICARE, BC, SELFPAY | END 2022-12-03 11:17 | disposition home or self-care (01) | LOC: AMB 12-08 09:49 | PROVIDERS: PCP Family Medicine; Visit Provider Emergency Medicine Emergency Medical Services | DX: R53.81 Other malaise (principal); N39.0 Urinary tract infection, site not specified; A04.71 Enterocolitis due to Clostridium difficile, recurrent; N17.9 Acute kidney failure, unspecified; E86.0 Dehydration | CPT/HCPCS: A0425; A0428 ==

== ENCOUNTER 2023-01-21 16:31 | Inpatient (IN) | payer MEDICARE, BC, SELFPAY ==
[2023-01-21] VITALS (18 sets, daily range): BP systolic 116–149; BP diastolic 58–70; PULSE 66–80; RESP 18; TEMP 36.2–36.5; O2SAT 92–100; BMI 31.6; BMI 32.7
--- NOTE | 2023-01-21 16:56 | ED.GENADULT ---
HPI - General Adult General Chief complaint: Weakness Stated complaint: Fall Time Seen by Provider: 01/21/23 16:33 History of Present Illness HPI narrative: This patient comes in by ambulance for evaluation of generalized decline over the last couple weeks. He was in transitional care facility couple weeks ago and since returning back home where he lives alone he has not been able to care for himself. The patient is very lethargic at the time of my interview and falls asleep easily while talking with him. He describes some chronic back pain but otherwise states that he feels okay. He does arrive with normal vital signs. He did have a fall this morning but does not describe any injury from it and has no pain related to that event. Related Data Home Medications Medication Instructions Recorded Confirmed aspirin 81 mg tablet,delayed 81 mg PO DAILY 10/22/21 11/26/22 release (Adult Aspirin Regimen) azathioprine 50 mg tablet 150 mg PO DAILY 10/22/21 11/26/22 tacrolimus 0.5 mg capsule, 1.5 - 2 mg PO BID 05/17/22 11/26/22 immediate-release cholecalciferol (vitamin D3) 25 4,000 unit PO DAILY 10/26/22 11/26/22 mcg (1,000 unit) capsule ferrous sulfate 325 mg (65 mg 325 mg PO DAILY 10/26/22 11/26/22 iron) tablet omeprazole 20 mg capsule,delayed 40 mg PO DAILY 10/26/22 11/26/22 release tamsulosin 0.4 mg capsule 0.4 mg PO DAILY 10/26/22 11/26/22 clopidogrel 75 mg tablet 75 mg PO DAILY 11/01/22 11/26/22 doxazosin 4 mg tablet 4 mg PO HS 11/26/22 11/26/22 Previous Rx's Medication Instructions Recorded citalopram 40 mg tablet (Celexa) 40 mg PO DAILY #90 tabs 11/09/21 gabapentin 600 mg tablet 600 mg PO BID #180 tabs 11/09/21 metoprolol tartrate 25 mg tablet 25 mg PO BID #60 tabs 10/29/22 glipizide 5 mg tablet 5 mg PO DAILYWM #30 tabs 11/08/22 oxycodone 5 mg tablet 5 mg PO Q6H PRN pain #20 tabs 11/16/22 fentanyl 25 mcg/hr transdermal 1 patch transdermal Q48H #15 ea 11/19/22 patch acetaminophen 325 mg tablet 650 mg (2 x 325 mg) PO Q6H PRN 30 12/03/22 days #50 tabs amoxicillin 250 mg capsule 500 mg (2 x 250 mg) PO TID 3 days 12/03/22 #18 caps insulin aspart U-100 100 unit/mL See Rx Instructions .Route 12/03/22 (3 mL) subcutaneous pen (Novolog .COMPLEX #15 mL FlexPen U-100 Insulin aspart) insulin aspart U-100 100 unit/mL 100 unit subcut DAILY #10 mL 12/03/22 subcutaneous solution vancomycin 125 mg capsule 125 mg PO QID 10 days #40 caps 12/03/22 atorvastatin 20 mg tablet 20 mg PO HS #90 tabs 01/21/23 Allergies Allergy/AdvReac Type Severity Reaction Status Date / Time phytonadione (vitamin K1) Allergy Intermediate Unknown Verified 01/21/23 16:41 Review of Systems Narrative: Unable to obtain because of lethargy. He does state that he has chronic back pain. [facility] Medical History Type 2 diabetes mellitus treated with insulin ?E11.9 - Type 2 diabetes mellitus without complications (ICD-10) ?Z79.4 - intermediate (current) use of insulin (ICD-10) Fall at home ?W19.XXXA - Unspecified fall, initial encounter (ICD-10) ?Y92.009 - Unspecified place in unspecified non-institutional (private) residence as the place of occurrence of the external cause (ICD-10) Elevated uric acid in blood ?E79.0 - Hyperuricemia without signs of inflammatory arthritis and tophaceous disease (ICD-10) Weakness ?R53.1 - Weakness (ICD-10) C. difficile diarrhea ?A04.72 - Enterocolitis due to Clostridium difficile, not specified as recurrent (ICD-10) Elevated bilirubin ?R17 - Unspecified jaundice (ICD-10) Metabolic encephalopathy ?G93.41 - Metabolic encephalopathy (ICD-10) Low back pain ?M54.50 - Low back pain, unspecified (ICD-10) Vitamin D deficiency ?E55.9 - Vitamin D deficiency, unspecified (ICD-10) History of transcatheter aortic valve replacement (TAVR) ?Z95.2 - Presence of prosthetic heart valve (ICD-10) BPH (benign prostatic hyperplasia) ?N40.0 - Benign prostatic hyperplasia without lower urinary tract symptoms (ICD-10) History of non-anemic folic acid deficiency ?Z86.39 - Personal history of other endocrine, nutritional and metabolic disease (ICD-10) History of colonic polyps (05/10/13) ?Z86.010 - Personal history of colonic polyps (ICD-10) Folic acid deficiency (01/22/16) ?E53.8 - Deficiency of other specified B group vitamins (ICD-10) Erectile dysfunction ?N52.9 - Male erectile dysfunction, unspecified (ICD-10) Current moderate episode of major depressive disorder without prior episode (01/14/17) ?F32.1 - Major depressive disorder, single episode, moderate (ICD-10) Controlled substance agreement signed (04/19/18) ?Z79.899 - Other superintendent terminal (current) drug therapy (ICD-10) Pancytopenia ?D61.818 - Other pancytopenia (ICD-10) Pain syndrome, chronic ?G89.4 - Chronic pain syndrome (ICD-10) Chronic kidney disease (CKD) ?N18.9 - Chronic kidney disease, unspecified (ICD-10) History of ETOH abuse ?F10.11 - Alcohol abuse, in remission (ICD-10) CHF (congestive heart failure) ?I50.9 - Heart failure, unspecified (ICD-10) Mitral regurgitation ?I34.0 - Nonrheumatic mitral (valve) insufficiency (ICD-10) Diabetic neuropathy ?E11.40 - Type 2 diabetes mellitus with diabetic neuropathy, unspecified (ICD-10) GERD (gastroesophageal reflux disease) ?K21.9 - Gastro-esophageal reflux disease without esophagitis (ICD-10) Hyperlipidemia ?E78.5 - Hyperlipidemia, unspecified (ICD-10) HTN (hypertension) ?I10 - Essential (primary) hypertension (ICD-10) Diverticulosis ?K57.90 - Diverticulosis of intestine, part unspecified, without perforation or abscess without bleeding (ICD-10) Surgical History Liver transplant recipient ?Z94.4 - Liver transplant status (ICD-10) History of coronary artery stent placement ?Z95.5 - Presence of coronary angioplasty implant and graft (ICD-10) S/P TAVR (transcatheter aortic valve replacement) ?Z95.2 - Presence of prosthetic heart valve (ICD-10) History of liver transplant (07/10/16) ?Z94.4 - Liver transplant status (ICD-10) History of decompression of ulnar nerve (1979) ?Z98.890 - Other specified postprocedural states (ICD-10) History of cataract extraction (2017) ?Z98.49 - Cataract extraction status, unspecified eye (ICD-10) 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 He lives by himself. He functions independently. He is retired. Remote history of smoking having quit about 20 years ago after a 10 pack year history. 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 Last drank in 2016 What is your current living situation?: I presently have a place to live Problems where you live: no known problems Problems where you live details: N/A In the past 12 months, utilities in danger of being shut off: no In past 12 months, lack of transportation kept you from medical appts, meetings, work, or getting things needed for daily living: no In the past 12 mos, have been you worried that your food would run out before you had money to buy more?: never true In the past 12 mos, the food you bought just didn't last and you didn't have money to buy more?: never true Highest level of school completed/degree received: high school graduate Smoking Status: Former smoker Do you use any of these nicotine containing products: None Second hand tobacco smoke exposure: No How often do you have a drink containing alcohol: never How often do you have six or more drinks on one occasion: Never AUDIT-C Alcohol total score: 0 Non-prescribed substance use: denies use Caffeine: Yes (coke zero 1 can/ day) How often does anyone, including family, friends and others, physically hurt you: never How often does anyone, including family, friends and others, insult or talk down to you: never How often does anyone, including family, friends and others, threaten you with harm: never How often does anyone, including family, friends and others, scream or curse at you: never Little interest or pleasure in doing things: more than half the days Feeling down, depressed, or hopeless: more than half the days service: No Exam Narrative: Exam Narrative: Constitutional: Well-developed, well-nourished, no acute distress. HEENT: Normocephalic, atraumatic. Neck: Normal range of motion. Nontender. Supple. Heart: Regular. No murmurs. Normal rate. Intact distal pulses. Lungs: Clear to auscultation. No chest discomfort. No wheezes, rhonchi, or rales. Abdomen: Normal bowel sounds. Nontender. No rebound tenderness. Genitalia: Deferred. Back: No midline tenderness. Normal range of motion. Extremities: Normal range of motion. No injury. Skin: Intact. No rash. Warm. No erythema or pallor. Neurologic: No altered sensation. No weakness. Lethargic and falls asleep repeatedly when attempting to talk with him. Psychiatric: No suicidality. No anxiety or depression. No insomnia. Nursing notes and vitals signs are reviewed. Const: Vital Signs, click to edit/add: Vital Signs - 24 hr 01/21/23 16:42 Temperature 97.2 F L Pulse Rate [Pulse Oximeter] 68 Respiratory Rate 18 Blood Pressure [Ri ght Upper Arm] 124/58 L Pulse Oximetry 98 Oxygen Delivery Me thod Room Air Course Vital Signs Vital signs: Initial Vital Signs Temperature 97.2 F L 01/21/23 16:42 Temperature Source Temporal Artery Scan 01/21/23 16:42 Pulse Rate 68 01/21/23 16:42 Pulse Rhythm Regular 01/21/23 16:42 Pulse Strength 3+ Normal 01/21/23 16:42 Respiratory Rate 18 01/21/23 16:42 Blood Pressure 124/58 L 01/21/23 16:42 Blood Pressure Mean 80 01/21/23 16:42 Blood Pressure Position Semi-Fowlers 01/21/23 16:42 Pulse Oximetry 98 01/21/23 16:42 Oxygen Delivery Method Room Air 01/21/23 16:42 Vital Signs Temperature 97.2 F L 01/21/23 16:42 Pulse Rate 68 01/21/23 16:42 Respiratory Rate 18 01/21/23 16:42 Blood Pressure 124/58 L 01/21/23 16:42 Pulse Oximetry 98 01/21/23 16:42 Oxygen Delivery Method Room Air 01/21/23 16:42 Temperature 97.2 F L 01/21/23 16:42 Pulse Rate 68 01/21/23 16:42 Respiratory Rate 18 01/21/23 16:42 Blood Pressure 124/58 L 01/21/23 16:42 Pulse Oximetry 98 01/21/23 16:42 Oxygen Delivery Method Room Air 01/21/23 16:42 Medical Decision Making MDM Narrative Medical decision making narrative: This patient comes in by ambulance because of evaluation for weakness which included a fall that happened earlier today. Initially in my visit with him he was falling asleep every few seconds but now on revisiting him he is more alert. The patient has large bilateral pedal edema. He has had a kidney transplant. He does not report any shortness of breath. He states that he is able to take care of things at home but ambulance and others who have seen his home situation indicate otherwise. He has been in transitional care facilities and then checks out and wants to return home. This has been going back and forth to where it becomes clear that he needs to be in long-term care. Today his most notable lab return is an elevated potassium at 6.0. The patient's EKG is reassuring. I spoke with the hospitalist carbon capture power plant manager, Dr. Bhakta, who agrees to bring him in for further evaluation and treatment. Lab Data Labs: Lab Results 01/21/23 Range/Units 17:59 WBC 3.63 L (4.50-11.00) K/uL RBC 3.72 L (4.30-5.90) m/uL Hgb 12.2 L (13.5-17.5) gm/dL Hct 37.7 (37.0-53.0) % MCV 101 H (80-100) fL MCH 33 (26-34) pg MCHC 32 (32-36) gm/dL RDW Coeff of Warren 15.7 H (11.5-15.5) % Plt Count 80 L (140-440) K/uL Neut % (Auto) 48.2 (42.0-72.0) % Lymph % (Auto) 40.2 (20-44) % [place] % (Auto) 9.9 (0.0-11.0) % Eos % (Auto) 1.1 (0.0-7.0) % Baso % (Auto) 0.3 (0.0-3.0) % Neut # (Auto) 1.70 (1.7-7.0) K/uL Lymph # (Auto) 1.50 (0.90-2.90) K/uL [place] # (Auto) 0.40 (0.00-0.90) K/UL Eos # (Auto) 0.00 (0.00-0.50) K/uL Baso # (Auto) 0.00 (0.00-0.30) K/uL Abs Immat Gran (auto) 0.00 (0.00-0.30) K/uL Imm/Tot Granulo (auto) 0.3 % Sodium 139 (135-149) mmol/L Potassium 6.0 H (3.6-5.1) mmol/L Chloride 109 (96-114) mmol/L Carbon Dioxide 22 (20-32) mmol/L Anion Gap 8 (7-15) mEq/L BUN 45 H (7-30) mg/dL Creatinine 2.1 H (0.5-1.5) mg/dL Estimated Creat Clear 28.47 Estimated GFR 33 ml/min Glucose 140 H (60-115) mg/dL Calcium 9.0 (8.4-10.6) mg/dL Total Bilirubin 1.7 H (0.1-1.5) mg/dL Direct Bilirubin 0.0 (0.0-0.5) mg/dL AST 23 (12-35) U/L ALT 10 (4-50) U/L Alkaline Phosphatase 61 (40-150) U/L Ammonia < 9.0 L (13.1-30.0) umol/L C-Reactive Protein < 0.5 L (0.5-1.0) mg/dL Total Protein 6.7 (6.0-8.3) g/dL Albumin 3.8 (3.3-5.0) g/dL Ethyl Alcohol < 0.01 L (0.01-0.03) % ECG Data Attestation: I personally reviewed and interpreted this ECG as follows: Interpretation: Normal sinus rhythm. Rate is 71 beats per minute. There are no ST or T-wave abnormalities. Discharge Plan Discharge Clinical Impression: Weakness, Chronic kidney disease (CKD), Type 2 diabetes mellitus treated with insulin, Acute hyperkalemia Patient Disposition: Admitted As Inpatient Condition: Unchanged Prescriptions: No Action citalopram [Celexa] 40 mg tablet 40 mg PO DAILY Qty: 90 3RF gabapentin 600 mg tablet 600 mg PO BID Qty: 180 3RF clopidogrel 75 mg tablet 75 mg PO DAILY glipizide 5 mg Tablet 5 mg PO DAILYWM Qty: 30 0RF doxazosin 4 mg tablet 4 mg PO HS acetaminophen 325 mg Tablet 650 mg PO Q6H PRN30 Days Qty: 50 0RF vancomycin 125 mg Capsule 125 mg PO QID 10 Days Qty: 40 0RF amoxicillin 250 mg Capsule 500 mg PO TID 3 Days Qty: 18 0RF insulin aspart U-100 [Novolog FlexPen U-100 Insulin] 100 unit/mL (3 mL) Insulin Pen See Rx Instructions .ROUTE .COMPLEX Qty: 15 0RF Rx Instructions: Sl[place] scale insulin dosing for glucose levels: less than 150, 0 units; 151-200, 3 units; 201-250, 6 units; 251-300, 9 units; 301-350, 12 units; 351-400, 15 units; greater than 400, notify clinician. insulin aspart U-100 100 unit/mL solution 100 unit subcut DAILY Qty: 10 0RF Patient Comments: VIA INSULIN PUMP Rx Instructions: Subcutaneous insulin pump aspirin [Adult Aspirin Regimen] 81 mg tablet,delayed release (DR/EC) 81 mg PO DAILY azathioprine 50 mg tablet 150 mg PO DAILY tacrolimus 0.5 mg capsule 1.5 - 2 mg PO BID Patient Comments: takes 4 CAPS (2MG) AM and 3 CAPS (1.5MG) PM ferrous sulfate 325 mg (65 mg iron) tablet 325 mg PO DAILY tamsulosin 0.4 mg capsule 0.4 mg PO DAILY omeprazole 20 mg capsule,delayed release(DR/EC) 40 mg PO DAILY cholecalciferol (vitamin D3) 25 mcg (1,000 unit) capsule 4,000 unit PO DAILY metoprolol tartrate 25 mg Tablet 25 mg PO BID Qty: 60 0RF oxycodone 5 mg tablet 5 mg PO Q6H PRN (Reason: pain) Qty: 20 0RF fentanyl 25 mcg/hr patch 72 hour 1 patch transdermal Q48H Qty: 15 0RF atorvastatin 20 mg tablet 20 mg PO HS Qty: 90 0RF Follow Up/Referrals: Rubén Boyle MD [Primary Care Provider] -
[2023-01-21 18:11] LABS: Basophils Percent Auto 0.3 % (0.0-3.0); Eosinophils Percent Auto 1.1 % (0.0-7.0); Hematocrit 37.7 % (37.0-53.0); Hemoglobin* 12.2 gm/dL (13.5-17.5); Immature Granulocytes Pct Auto 0.3 %; Lymphocytes Percent Auto 40.2 % (20-44); Mean Corpuscular HGB Conc 32 gm/dL (32-36); Mean Corpuscular Hemoglobin 33 pg (26-34); Mean Corpuscular Volume 101 fL (80-100); Monocytes Percent Auto 9.9 % (0.0-11.0); Neutrophils Percent Auto 48.2 % (42.0-72.0); Platelet Count* 80 K/uL (140-440); RDW Coefficient of Variation % 15.7 % (11.5-15.5); Red Blood Count 3.72 m/uL (4.30-5.90); White Blood Count* 3.63 K/uL (4.50-11.00)
[2023-01-21 18:13] LABS: Slide Review Reflex No
[2023-01-21 18:25] LABS: Albumin* 3.8 g/dL (3.3-5.0); Chloride* 109 mmol/L (96-114)
[2023-01-21 18:26] LABS: Sodium* 139 mmol/L (135-149)
[2023-01-21 18:28] LABS: Creatinine* 2.1 mg/dL (0.5-1.5); Est. Creatinine Clearance* 28.47; Estimated Glomerular Filt Rate 33 ml/min
[2023-01-21 18:29] LABS: Alanine Aminotransferase* 10 U/L (4-50); Alkaline Phosphatase* 61 U/L (40-150); Anion Gap 8 mEq/L (7-15); Aspartate Amino Transferase* 23 U/L (12-35); Bilirubin Total* 1.7 mg/dL (0.1-1.5); Blood Urea Nitrogen* 45 mg/dL (7-30); Carbon Dioxide* 22 mmol/L (20-32); Glucose* 140 mg/dL (60-115); Total Protein* 6.7 g/dL (6.0-8.3)
[2023-01-21 18:31] LABS: Ethanol* < 0.01 % (0.01-0.03)
[2023-01-21 18:32] LABS: C Reactive Protein* < 0.5 mg/dL (0.5-1.0)
[2023-01-21 19:58] LABS: Ammonia* < 9.0 umol/L (13.1-30.0)
--- NOTE | 2023-01-21 22:11 | PM.IMHP1 ---
Hospitalist- H&P: HPI History of Present Illness Time Seen by Provider: 21:00 Date Seen: 01/21/23 Chief complaint: Fall without injury, weakness and somnolence Narrative: Bari Mora is a 72 year old with multiple active comorbid medical conditions presents with increased weakness and somnolence that has been developing over the last 7 days. For the past several months he has exhibited a recurrent pattern of presenting to the hospital acutely ill, his condition is stabilized in the hospital, he is unable to demonstrate ability to independently care for himself safely while here in the hospital, he is discharged from the hospital to a transitional care unit in a care home facility until such time as he decides he is ready to go home, remains in his home for a brief period of time, ranging from a few days to as long as 2 weeks, then he returns back to the hospital, and the pattern begins once again. Such as the case with his current presentation. He was hospitalized here from 11/26/2022 through 12/03/2022, then discharged from the hospital to a transitional care unit in a care home facility for rehabilitation, then a little less than 2 weeks ago he left the care home facility and returned back to his home to resume his usual lifestyle in his home. Over the last week his condition has been progressively declining with increasing weakness and increasing somnolence. He tells me he had a fall yesterday in his home without injury. Today he decided he to come in for further assessment because his weakness and somnolence are worsening and not improving. Denies fevers, rigors, diaphoresis. Up until few days ago he states his appetite was normal. Over the last few days his appetite is decreased. Denies nausea, vomiting, abdominal pain, dyspepsia, dysphagia, odynophagia, diarrhea, constipation. Does have history of C diff diarrhea, for which he completed a 14 day course of oral vancomycin while in hospital and post hospitalization in November 2022. Has not had diarrhea since then. Denies dysuria, urgency, frequency, hematuria. Acknowledges decreasing urine output the last couple of days. Denies lightheadedness, dizziness, orthostasis, vertigo. Review of Systems Status of ROS: Reports: 10 or more systems reviewed and unremarkable except as noted in History and below Narrative: Denies angina, anginal equivalent, syncope, near syncope, palpitations or chest fluttering. Acknowledges sitting in his chair the last few days with his feet in the dependent position and notes that he has had more swelling in his feet in the last few days. Denies dyspnea at rest, paroxysmal nocturnal dyspnea, orthopnea. Denies cough. Denies focal motor neurologic deficits. Ongoing complaints of right hip discomfort that is worse when he is trying to transfer in or out of bed. Hip discomfort on the right is not problematic phase standing or walking. This is a longstanding problem for him. Went home he is able to cook for himself at times. He tells me he prefers to by ready made food by a cook in [place], where he lives. Receives help maintaining his house. His brother, Michael, checks up on him. For some time Michael has been recommending to Lito that he move out of his home and receive more help than he receives in his home. Patient again directs that we speak with his brother, Michael, as his power of assistant prosecuting attorney for health, should that be required. Patient again indicates that he wishes to have a DNR DNI resuscitation status in the event of cardiopulmonary demise. [facility] Medical History Penile ulcer ?N48.5 - Ulcer of penis (ICD-10) Type 2 diabetes mellitus treated with insulin ?E11.9 - Type 2 diabetes mellitus without complications (ICD-10) ?Z79.4 - FDC (current) use of insulin (ICD-10) Fall at home ?W19.XXXA - Unspecified fall, initial encounter (ICD-10) ?Y92.009 - Unspecified place in unspecified non-institutional (private) residence as the place of occurrence of the external cause (ICD-10) Elevated uric acid in blood ?E79.0 - Hyperuricemia without signs of inflammatory arthritis and tophaceous disease (ICD-10) Weakness ?R53.1 - Weakness (ICD-10) Elevated bilirubin ?R17 - Unspecified jaundice (ICD-10) Metabolic encephalopathy ?G93.41 - Metabolic encephalopathy (ICD-10) Low back pain ?M54.50 - Low back pain, unspecified (ICD-10) Vitamin D deficiency ?E55.9 - Vitamin D deficiency, unspecified (ICD-10) History of transcatheter aortic valve replacement (TAVR) ?Z95.2 - Presence of prosthetic heart valve (ICD-10) BPH (benign prostatic hyperplasia) ?N40.0 - Benign prostatic hyperplasia without lower urinary tract symptoms (ICD-10) History of non-anemic folic acid deficiency ?Z86.39 - Personal history of other endocrine, nutritional and metabolic disease (ICD-10) History of colonic polyps (05/10/13) ?Z86.010 - Personal history of colonic polyps (ICD-10) Folic acid deficiency (01/22/16) ?E53.8 - Deficiency of other specified B group vitamins (ICD-10) Erectile dysfunction ?N52.9 - Male erectile dysfunction, unspecified (ICD-10) Current moderate episode of major depressive disorder without prior episode (01/14/17) ?F32.1 - Major depressive disorder, single episode, moderate (ICD-10) Controlled substance agreement signed (04/19/18) ?Z79.899 - Other usp (current) drug therapy (ICD-10) Pancytopenia ?D61.818 - Other pancytopenia (ICD-10) Pain syndrome, chronic ?G89.4 - Chronic pain syndrome (ICD-10) Chronic kidney disease (CKD) ?N18.9 - Chronic kidney disease, unspecified (ICD-10) History of ETOH abuse ?F10.11 - Alcohol abuse, in remission (ICD-10) CHF (congestive heart failure) ?I50.9 - Heart failure, unspecified (ICD-10) Mitral regurgitation ?I34.0 - Nonrheumatic mitral (valve) insufficiency (ICD-10) Diabetic neuropathy ?E11.40 - Type 2 diabetes mellitus with diabetic neuropathy, unspecified (ICD-10) GERD (gastroesophageal reflux disease) ?K21.9 - Gastro-esophageal reflux disease without esophagitis (ICD-10) Hyperlipidemia ?E78.5 - Hyperlipidemia, unspecified (ICD-10) HTN (hypertension) ?I10 - Essential (primary) hypertension (ICD-10) Diverticulosis ?K57.90 - Diverticulosis of intestine, part unspecified, without perforation or abscess without bleeding (ICD-10) Surgical History Liver transplant recipient ?Z94.4 - Liver transplant status (ICD-10) History of coronary artery stent placement ?Z95.5 - Presence of coronary angioplasty implant and graft (ICD-10) S/P TAVR (transcatheter aortic valve replacement) ?Z95.2 - Presence of prosthetic heart valve (ICD-10) History of liver transplant (07/10/16) ?Z94.4 - Liver transplant status (ICD-10) History of decompression of ulnar nerve (1979) ?Z98.890 - Other specified postprocedural states (ICD-10) History of cataract extraction (2017) ?Z98.49 - Cataract extraction status, unspecified eye (ICD-10) 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 He lives by himself. He functions independently. He is retired. Remote history of smoking having quit about 20 years ago after a 10 pack year history. 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 Last drank in 2016 What is your current living situation?: I presently have a place to live Problems where you live: no known problems Problems where you live details: N/A In the past 12 months, utilities in danger of being shut off: no In past 12 months, lack of transportation kept you from medical appts, meetings, work, or getting things needed for daily living: no In the past 12 mos, have been you worried that your food would run out before you had money to buy more?: never true In the past 12 mos, the food you bought just didn't last and you didn't have money to buy more?: never true Highest level of school completed/degree received: high school graduate Smoking Status: Former smoker Do you use any of these nicotine containing products: None Second hand tobacco smoke exposure: No How often do you have a drink containing alcohol: never How often do you have six or more drinks on one occasion: Never AUDIT-C Alcohol total score: 0 Non-prescribed substance use: denies use Caffeine: Yes (coke zero 1 can/ day) How often does anyone, including family, friends and others, physically hurt you: never How often does anyone, including family, friends and others, insult or talk down to you: never How often does anyone, including family, friends and others, threaten you with harm: never How often does anyone, including family, friends and others, scream or curse at you: never Little interest or pleasure in doing things: more than half the days Feeling down, depressed, or hopeless: more than half the days service: No Meds Home Medications and Allergies Home Medications Medication Instructions Recorded Confirmed Type aspirin 81 mg tablet,delayed 81 mg PO DAILY 10/22/21 11/26/22 History release (Adult Aspirin Regimen) azathioprine 50 mg tablet 150 mg PO DAILY 10/22/21 11/26/22 History tacrolimus 0.5 mg capsule, 1.5 - 2 mg PO BID 05/17/22 11/26/22 History immediate-release cholecalciferol (vitamin D3) 25 4,000 unit PO DAILY 10/26/22 11/26/22 History mcg (1,000 unit) capsule ferrous sulfate 325 mg (65 mg 325 mg PO DAILY 10/26/22 11/26/22 History iron) tablet omeprazole 20 mg capsule,delayed 40 mg PO DAILY 10/26/22 11/26/22 History release tamsulosin 0.4 mg capsule 0.4 mg PO DAILY 10/26/22 11/26/22 History clopidogrel 75 mg tablet 75 mg PO DAILY 11/01/22 11/26/22 History doxazosin 4 mg tablet 4 mg PO HS 11/26/22 11/26/22 History Allergies Allergy/AdvReac Type Severity Reaction Status Date / Time phytonadione (vitamin K1) Allergy Intermediate Unknown Verified 01/21/23 16:41 Exam Narrative: Exam Narrative: I 1st examined him in the emergency department setting. I visit with him and examine him again when he is on the hospital floor. When I 1st examined him he is quite sleepy but arousable. By the time I examined him the 2nd time he is more awake, talkative, interactive. Vision and hearing are grossly normal. When awake he is alert, oriented to self, place, time, situation. Unable to give a lot of details when I speak with him about his recent fall or his last few days at home. Friendly, articulate, cooperative. Tympanic membranes are normal. Midline nasal septum. Dry buccal mucosa. Dentition in fair repair. No icterus or conjunctival injection. No jaundice, petechiae, rashes. No cyanosis. No bruising or ecchymosis. Does have bilateral lower extremity edema with scant amount of weeping in right dill area. Neck is supple. Midline trachea. No JVD or hepatojugular reflux. No head and neck lymphadenopathy. Lungs actually are clear to auscultation without wheezing, rhonchi, or rales. No CVA tenderness. Heart tones with regular rhythm, normal S1-S2. Abdomen with active bowel sounds, soft, nontender. No rebound or guarding. No focal motor neurologic deficits. Decreased range of motion of hips right more so than left. This is not new. Const: Vital Signs, click to edit/add: Vital Signs - 24 hr 01/21/23 16:37 01/21/23 16:38 01/21/23 16:39 Temperature Pulse Rate 66 66 76 Pulse Rate [Pulse Oximeter] Respiratory Rate Blood Pressure 124/58 L 116/60 Blood Pressure [Ri ght Upper Arm] Pulse Oximetry 95 96 98 Oxygen Delivery Me thod 01/21/23 16:42 01/21/23 17:00 01/21/23 17:02 Temperature 97.2 F L Pulse Rate 70 72 Pulse Rate [Pulse Oximeter] 68 Respiratory Rate 18 Blood Pressure 127/61 Blood Pressure [Ri ght Upper Arm] 124/58 L Pulse Oximetry 98 98 98 Oxygen Delivery Me thod Room Air 01/21/23 17:32 01/21/23 17:37 01/21/23 18:00 Temperature Pulse Rate 77 73 Pulse Rate [Pulse Oximeter] Respiratory Rate Blood Pressure 140/68 H Blood Pressure [Ri ght Upper Arm] Pulse Oximetry 100 100 Oxygen Delivery Me thod 01/21/23 18:02 01/21/23 18:30 01/21/23 18:32 Temperature Pulse Rate 72 75 78 Pulse Rate [Pulse Oximeter] Respiratory Rate Blood Pressure 130/61 146/70 H Blood Pressure [Ri ght Upper Arm] Pulse Oximetry 99 97 92 Oxygen Delivery Me thod 01/21/23 19:00 01/21/23 19:02 01/21/23 19:32 Temperature Pulse Rate 78 78 Pulse Rate [Pulse Oximeter] Respiratory Rate Blood Pressure 141/66 H 136/61 Blood Pressure [Ri ght Upper Arm] Pulse Oximetry 99 99 Oxygen Delivery Me thod 01/21/23 20:02 01/21/23 20:32 Temperature Pulse Rate Pulse Rate [Pulse Oximeter] Respiratory Rate Blood Pressure 136/62 131/62 Blood Pressure [Ri ght Upper Arm] Pulse Oximetry Oxygen Delivery Me thod Documenting provider has reviewed patient's vital signs: yes Hospitalist - H&P: Result Labs Labs: Short CBC 01/21/23 Range/Units 17:59 WBC 3.63 L (4.50-11.00) K/uL Hgb 12.2 L (13.5-17.5) gm/dL Hct 37.7 (37.0-53.0) % Plt Count 80 L (140-440) K/uL BMP 01/21/23 17:59 Sodium 139 Potassium 6.0 H Chloride 109 Carbon Dioxide 22 BUN 45 H Creatinine 2.1 H Glucose 140 H Calcium 9.0 Liver Function 01/21/23 Range/Units 17:59 Total Bilirubin 1.7 H (0.1-1.5) mg/dL Direct Bilirubin 0.0 (0.0-0.5) mg/dL AST 23 (12-35) U/L ALT 10 (4-50) U/L Alkaline Phosphatase 61 (40-150) U/L Albumin 3.8 (3.3-5.0) g/dL Assessment and Plan Assessment and plan (1) Weakness: Problem comment: - Acute on chronic, possibly exacerbated by acute hyperkalemia. - D/Dx: multifactorial, acute/chronic, hyperkalemia, ROSANA/CKD, dehydration, infection - treat dehydration - check blood cultures, urine cultures, venous blood gas, lactate, creatine kinase, BNP, trop I Status: Acute (2) Acute hyperkalemia: Problem comment: - D/Dx: ROSANA/CKD, renal transplant status, polypharmacy, rhabdomyolysis, trauma/injury (recent fall) - run a creatine kinase level - IV NS and single dose of furosemide, monitor K+ level - ECG Status: Acute (3) Dehydration: Problem comment: - Likely due to decreased oral intake, presumably not on a diuretic at this time - unable to care for self independently in his home. - gentle IV hydration Status: Acute (4) Acute renal failure superimposed on stage 3 chronic kidney disease: Problem comment: - Baseline creatinine 1.1-1.3. On 11/26/2022 creatinine was 2.0. On 11/30/2022 Cr 1.0. On 01/21/2023 Cr 2.1. - hold ASA and other non-essential medications, and decrease dose of citalopram, gabapentin, etc. Status: Acute (5) Declining functional status: Problem comment: - Unable to transfer and ambulate without assistance on 01/21/2023 - this is a recurrent problem. - s/p multiple prior hospitalizations for management of acute medical problems over the past several months, followed by short term SNF transitional care until he demands to return to his home, then returns home for short period of time before returning to hospital with acute medical problems requiring inpatient hospitalization for stabilization, and the cycle repeats. - PT, OT consult - SS consult for discharge planning - I again reviewed this dangerous pattern of hospitalization/TCU in SNF/home briefly/re-hospitalization pattern with patient. He has poor insight and/or acceptance of this downward spiraling pattern of his health. Voiced my opinion to him once again that if he is to succeed in safely maintaining his health status for longer periods of time, given his declining physical health and decreased ability to care for himself independently in his home, that he needs a level of care comparable to what he receives when he is in a SNF. Status: Acute (6) Physical debility: Problem comment: Chronic. Hard to imagine him suddenly being able to care for himself independently in his home, given the multiple failed attempts over the past several months. Status: Acute (7) Pancytopenia: Problem comment: Etiology not determined. Doubt sepsis. Possible iatrogenic etiologies include aspirin, allopurinol, azathioprine, and furosemide. Consider primary bone marrow failure, infectious and noninfectious causes, verses bone marrow infiltrative processes, such as malignant versus non-malignant etiologies. Did require 2 units of packed red blood cell transfusion when hospitalized from 11/26/22-12/03/22 without apparent blood loss. Status: Acute (8) Type 2 diabetes mellitus treated with insulin: Problem comment: - A1c 6.3, usually covered with insulin pump and sliding scale at [facility]. - Glipizide on hold 01/21/2023 Status: Acute (9) Chronic right hip pain: Problem comment: - will obtain x-ray of the pelvis and right hip on 01/22/2023 Status: Acute Plan 1. Reviewed above with patient 2. Answered his questions to his satisfaction 3. He is agreeable with above stated plans
[2023-01-22] VITALS (7 sets, daily range): BP systolic 132–161; BP diastolic 60–76; PULSE 73–105; RESP 16–20; TEMP 36.1–36.6; O2SAT 94–98
[2023-01-22 00:04] LABS: Appearance Urine Clear (Clear); Bilirubin Urine Negative (Negative); Blood Urine Negative (Negative); Color Urine Yellow (Yellow); Glucose Urine Negative (Negative); Ketones Urine 1+ (Negative); Leukocyte Esterase Urine Negative (Negative); Nitrite Urine Negative (Negative); Protein Urine Negative (Negative); Urobilinogen Urine 0.2 (0.2-1.0); pH Urine 5.5 (5.0-8.5)
[2023-01-22 00:14] LABS: Amphetamine Screen Urine Negative (Negative); Barbiturate Screen Urine Negative (Negative); Benzodiazepines Screen Urine Negative (Negative); Cannabinoid Screen Urine POSITIVE (Negative); Cocaine Screen Urine Negative (Negative); Methadone Screen Urine Negative (Negative); Methamphetamines Screen Urine Negative (Negative); Opiate Screen Urine Negative (Negative); Oxycodone Screen Urine Negative (Negative); Phencyclidine Screen Urine Negative (Negative); Tricyclic Antidepressant Urine Negative (Negative)
[2023-01-22 00:18] LABS: HCO3 VBG 22 mmol/L (21-28); Lactate* 0.8 mmol/L (0.5-1.9); PCO2 VBG 44 mmHG (40-50); PO2 VBG 49.2 mmHG (25-47); pH VBG 7.297 (7.32-7.43)
[2023-01-22 00:32] LABS: RBC Urine 0-2 (0-2); WBC Urine 0-2 (0-5)
[2023-01-22] MEDS: SODIUM CHLORIDE 0.9 % (FLUSH) 10 ML SYRINGE 5 ML IVF ×2 (00:47→09:56)
[2023-01-22 00:48] LABS: Troponin I* 0.01 ng/mL (0.01-0.04)
[2023-01-22 00:49] LABS: NT Pro B Type NatriureticPept* 1150 pg/mL
[2023-01-22] MEDS: 0.9 % SODIUM CHLORIDE 250 ml 250 ML IV (00:49)
[2023-01-22] MEDS: 0.9 % SODIUM CHLORIDE 1000 ml 1,000 ML 125 ML IV ×2 (00:50→09:56)
[2023-01-22] MEDS: fentaNYL 25 MCG/HR PATCH 1 PATCH TRANSDERMA (00:57)
[2023-01-22 01:09] LABS: Creatine Kinase* 181 U/L (54-186)
[2023-01-22] MEDS: FUROSEMIDE 10 MG/ML inj 20 MG IVP (02:34)
[2023-01-22 06:53] LABS: HCO3 VBG 20 mmol/L (21-28); Lactate* 0.5 mmol/L (0.5-1.9); PCO2 VBG 35 mmHG (40-50); PO2 VBG 66.6 mmHG (25-47); pH VBG 7.373 (7.32-7.43)
[2023-01-22 06:56] LABS: Basophils Percent Auto 0.4 % (0.0-3.0); Eosinophils Percent Auto 2.1 % (0.0-7.0); Hematocrit 31.6 % (37.0-53.0); Hemoglobin* 10.3 gm/dL (13.5-17.5); Lymphocytes Percent Auto 32.7 % (20-44); Mean Corpuscular HGB Conc 33 gm/dL (32-36); Mean Corpuscular Hemoglobin 32 pg (26-34); Mean Corpuscular Volume 98 fL (80-100); Monocytes Percent Auto 7.7 % (0.0-11.0); Neutrophils Percent Auto 57.1 % (42.0-72.0); Platelet Count* 98 K/uL (140-440); RDW Coefficient of Variation % 15.2 % (11.5-15.5); Red Blood Count 3.24 m/uL (4.30-5.90); White Blood Count* 2.84 K/uL (4.50-11.00)
[2023-01-22 07:10] LABS: Slide Review Reflex No
[2023-01-22 07:25] LABS: Albumin* 3.7 g/dL (3.3-5.0); Chloride* 110 mmol/L (96-114); Sodium* 137 mmol/L (135-149)
[2023-01-22 07:26] LABS: Potassium* 5.6 mmol/L (3.6-5.1)
[2023-01-22 07:28] LABS: Creatinine* 1.6 mg/dL (0.5-1.5); Est. Creatinine Clearance* 45.76; Estimated Glomerular Filt Rate 46 ml/min
[2023-01-22 07:29] LABS: Alanine Aminotransferase* 9 U/L (4-50); Alkaline Phosphatase* 68 U/L (40-150); Anion Gap 9 mEq/L (7-15); Aspartate Amino Transferase* 27 U/L (12-35); Bilirubin Total* 2.3 mg/dL (0.1-1.5); Blood Urea Nitrogen* 35 mg/dL (7-30); Carbon Dioxide* 18 mmol/L (20-32); Glucose* 142 mg/dL (60-115); Magnesium* 1.6 mg/dL (1.5-2.6); Phosphorus* 3.7 mg/dL (2.5-4.5); Total Protein* 6.7 g/dL (6.0-8.3)
[2023-01-22 07:39] LABS: Troponin I* 0.05 ng/mL (0.01-0.04)
[2023-01-22 07:42] LABS: C Reactive Protein* < 0.5 mg/dL (0.5-1.0)
--- NOTE | 2023-01-22 07:54 | PC.NURSE ---
END OF SHIFT NOTE: PT FATIGUED, BUT COOPERATIVE. A&O. DENIES CP, SOB, N/V. PT DID NOT AMBULATE THIS SHIFT. BLE WITH +4 PITTING EDEMA. TEDS AND SCD'S APPLIED. NS @125ML/HR. VSS ON RA; AFEBRILE. BED ALARM ON AND CALL LIGHT WITHIN PT?S REACH.?
--- NOTE | 2023-01-22 08:00 | CRLHL7_ITS ---
For Patients: As a result of the Cures Act, medical imaging exams and procedure reports are released immediately into your electronic medical record. You may view this report before your referring provider. If you have questions, please contact your health care provider. INDICATION: Right hip pain. FINDINGS: A single frontal view of the pelvis along with 2 views of the right hip show bilateral hip arthroplasties which appear intact. No evidence of acute fracture or dislocation. Vascular calcifications. No other bony or soft tissue abnormalities identified. Dictated by Corey Rodriguez MD @ 01/22/2023 8:33:46 AM Dictated by: Corey Rodriguez MD @ 01/22/2023 08:34:01 (Electronically Signed)
[2023-01-22] MEDS: TACROLIMUS 0.5 MG CAPSULE 2 MG PO ×2 (09:51→20:57)
[2023-01-22] MEDS: CITALOPRAM HYDROBROMIDE 20 MG TABLET 10 MG PO (09:51)
[2023-01-22] MEDS: METOPROLOL TARTRATE 25 MG TABLET PO ×2 (09:51→20:57)
[2023-01-22] MEDS: CLOPIDOGREL 75 MG TABLET PO (09:51)
[2023-01-22] MEDS: TAMSULOSIN HCL 0.4 MG CAPSULE PO (09:51)
[2023-01-22] MEDS: OMEPRAZOLE 20 MG CAPSULE DR 40 MG PO (09:52)
[2023-01-22] MEDS: GABAPENTIN 300 MG CAPSULE PO ×2 (09:52→20:57)
--- NOTE | 2023-01-22 10:22 | PM.IMPN1 ---
Progress Note: A&P Assessment and plan (1) Weakness: Problem details: - Acute on chronic, possibly exacerbated by acute hyperkalemia. - D/Dx: multifactorial, acute/chronic, hyperkalemia, ROSANA/CKD, dehydration, infection - treat dehydration - check blood cultures, urine cultures, venous blood gas, lactate, creatine kinase, BNP, trop I Status: Acute (2) Acute hyperkalemia: Problem details: - D/Dx: ROSANA/CKD, electrolyte disturbance, renal transplant status, polypharmacy, rhabdomyolysis (CK normal), trauma/injury (recent fall) - CK negative - IVF and one dose of lasix has improved kidney function and potassium - will plan on repeating this vs glucose/insulin - IVF continues Status: Acute (3) Dehydration: Problem details: - Likely due to decreased oral intake, presumably not on a diuretic at this time - unable to care for self independently in his home. - gentle IV hydration Status: Acute (4) Acute renal failure superimposed on stage 3 chronic kidney disease: Problem details: - Baseline creatinine 1.1-1.3. creatinine at presentation 2.1; improving on 01/22 - hold ASA and other non-essential medications, and decrease dose of citalopram, gabapentin, etc. Status: Acute (5) Declining functional status: Problem details: - Unable to transfer and ambulate without assistance on 01/21/2023 - this is a recurrent problem. - s/p multiple prior hospitalizations for management of acute medical problems over the past several months, followed by short term SNF transitional care until he demands to return to his home, then returns home for short period of time before returning to hospital with acute medical problems requiring inpatient hospitalization for stabilization, and the cycle repeats. - PT, OT consult - SS consult for discharge planning - I again reviewed this dangerous pattern of hospitalization/TCU in SNF/home briefly/re-hospitalization pattern with patient. He has poor insight and/or acceptance of this downward spiraling pattern of his health. Voiced my opinion to him once again that if he is to succeed in safely maintaining his health status for longer periods of time, given his declining physical health and decreased ability to care for himself independently in his home, that he needs a level of care comparable to what he receives when he is in a SNF. Status: Acute (6) Physical debility: Problem details: Chronic. Hard to imagine him suddenly being able to care for himself independently in his home, given the multiple failed attempts over the past several months. Status: Acute (7) Pancytopenia: Problem details: Etiology not determined. Doubt sepsis. Possible iatrogenic etiologies include aspirin, allopurinol, azathioprine, and furosemide. Consider primary bone marrow failure, infectious and noninfectious causes, verses bone marrow infiltrative processes, such as malignant versus non-malignant etiologies. Did require 2 units of packed red blood cell transfusion when hospitalized from 11/26/22-12/03/22 without apparent blood loss. Status: Acute (8) Type 2 diabetes mellitus treated with insulin: Problem details: - A1c 6.3, usually covered with insulin pump and sliding scale at [facility]. - Glipizide on hold 01/21/2023 Status: Acute (9) Chronic right hip pain: Problem details: - xray negative. on chronic opioids. question the use of fentanyl given his recurrent falls/hospitalizations. -change fentanyl to 12.5 from 25mcg/72hours. -schedule acetaminophen Status: Acute Subjective Date Seen: 01/22/23 Interval history: Daily Progress Note - Hospital Medicine Day #: 2 CC: Weakness, fall at home, acute hyperkalemia and acute kidney injury OVERNIGHT UPDATES FROM STAFF & MED, LAB, IMAGING UPDATES -flat affect. responds but falls alseep easily. denies pain. is not sure why he is here. doesn't remember falling. RN: END OF SHIFT NOTE: PT FATIGUED, BUT COOPERATIVE. A&O. DENIES CP, SOB, N/V. PT DID NOT AMBULATE THIS SHIFT. BLE WITH +4 PITTING EDEMA. TEDS AND SCD'S APPLIED. NS @125ML/HR. VSS ON RA; AFEBRILE. BED ALARM ON AND CALL LIGHT WITHIN PT?S REACH.? 161/76. Pulse 105. Rest per 16. Afebrile. O2 sat 97% on room air. 106.2 kilos. In November at discharge she was 102.3 CBC is stable. PH is much improved overnight. Potassium is improved from 6.0 down to 5.6 and this was with IV fluids and Lasix Creatinine has improved from 2.1-1.6, baseline 1.1-1.2 Positive for THC Femur x-ray, right hip x-ray A single frontal view of the pelvis along with 2 views of the right hip show bilateral hip arthroplasties which appear intact. No evidence of acute fracture or dislocation. Vascular calcifications. No other bony or soft tissue abnormalities identified. 2 blood cultures are negative to date. Urine culture in progress. Objective: Vitals: see above Lungs: Clear. Cardiac: S1S2. Disposition/Potential discharge - Likely to return to previous living situation. Today I spent 50minutes seeing the patient, reviewing Expanse and EPIC notes/diagnostics, discussing the care plan with our care time that includes social work, PT/OT, pharmacy, RT, [place] [facility] and documenting my impressions and plan in the medical record. Prolonged Physician Services [id number] ([facility]) in conjunction with: [id number] (subsequent visit; 50 mins + 15 mins prolonged services = 65 mins total) I then went back for 15 mins to discuss the findings of ..... Alcohol 46810 >30 mins. We went over all the stigmata of alcoholism I see in this patient. I discussed the effects of chronic alcohol on the brain, liver, and heart. I recommended complete abstinence from alcohol and instructed on programs available at discharge from acute care. Smoking/Tobacco 68862 >10 mins. I went over the clinical stigmata of chronic tobacco use on the body. I explained the effect on the vasculature, lungs, heart, skin. I recommended complete abstinence from tobacco products and instructed on programs available at discharge from acute care. ACP first 30 mins [id number] I went over options for care during this current hospitalization and explained the difference between palliative care and hospice care. I described the likelihood of returning to previous functioning and what the options are going forward for care. Exam Const: Vital Signs, click to edit/add: Vital Signs - 24 hr 01/21/23 16:37 01/21/23 16:38 01/21/23 16:39 Temperature Pulse Rate 66 66 76 Pulse Rate [Pulse Oximeter] Respiratory Rate Blood Pressure 124/58 L 116/60 Blood Pressure [Ri ght Arm] Blood Pressure [Ri ght Radial Artery] Blood Pressure [Ri ght Upper Arm] Pulse Oximetry 95 96 98 Oxygen Delivery Me thod 01/21/23 16:42 01/21/23 17:00 01/21/23 17:02 Temperature 97.2 F L Pulse Rate 70 72 Pulse Rate [Pulse Oximeter] 68 Respiratory Rate 18 Blood Pressure 127/61 Blood Pressure [Ri ght Arm] Blood Pressure [Ri ght Radial Artery] Blood Pressure [Ri ght Upper Arm] 124/58 L Pulse Oximetry 98 98 98 Oxygen Delivery Me thod Room Air 01/21/23 17:32 01/21/23 17:37 01/21/23 18:00 Temperature Pulse Rate 77 73 Pulse Rate [Pulse Oximeter] Respiratory Rate Blood Pressure 140/68 H Blood Pressure [Ri ght Arm] Blood Pressure [Ri ght Radial Artery] Blood Pressure [Ri ght Upper Arm] Pulse Oximetry 100 100 Oxygen Delivery Me thod 01/21/23 18:02 01/21/23 18:30 01/21/23 18:32 Temperature Pulse Rate 72 75 78 Pulse Rate [Pulse Oximeter] Respiratory Rate Blood Pressure 130/61 146/70 H Blood Pressure [Ri ght Arm] Blood Pressure [Ri ght Radial Artery] Blood Pressure [Ri ght Upper Arm] Pulse Oximetry 99 97 92 Oxygen Delivery Me thod 01/21/23 19:00 01/21/23 19:02 01/21/23 19:32 Temperature Pulse Rate 78 78 Pulse Rate [Pulse Oximeter] Respiratory Rate Blood Pressure 141/66 H 136/61 Blood Pressure [Ri ght Arm] Blood Pressure [Ri ght Radial Artery] Blood Pressure [Ri ght Upper Arm] Pulse Oximetry 99 99 Oxygen Delivery Me thod 01/21/23 20:02 01/21/23 20:32 01/21/23 22:35 Temperature 97.7 F Pulse Rate Pulse Rate [Pulse Oximeter] 80 Respiratory Rate 18 Blood Pressure 136/62 131/62 Blood Pressure [Ri ght Arm] Blood Pressure [Ri ght Radial Artery] 149/69 H Blood Pressure [Ri ght Upper Arm] Pulse Oximetry 98 Oxygen Delivery Me thod Room Air 01/22/23 01:45 01/22/23 01:45 01/22/23 01:45 Temperature 97.8 F Pulse Rate Pulse Rate [Pulse Oximeter] 82 82 Respiratory Rate 18 18 Blood Pressure Blood Pressure [Ri ght Arm] Blood Pressure [Ri ght Radial Artery] 137/67 Blood Pressure [Ri ght Upper Arm] Pulse Oximetry 98 98 Oxygen Delivery Me thod Room Air Room Air 01/22/23 03:50 01/22/23 07:43 01/22/23 07:43 Temperature 97.5 F L Pulse Rate Pulse Rate [Pulse Oximeter] 105 H Respiratory Rate 20 16 Blood Pressure Blood Pressure [Ri ght Arm] 161/76 H Blood Pressure [Ri t Radial Artery] [facility]] Pulse Oximetry 96 97 97 Oxygen Delivery Me thod Room Air Room Air Room Air Labs Labs: Laboratory Results - last 24 hr 01/21/23 01/21/23 01/21/23 17:59 22:33 23:11 WBC 3.63 L RBC 3.72 L Hgb 12.2 L Hct 37.7 MCV 101 H MCH 33 MCHC 32 RDW Coeff of [place] 15.7 H Plt Count 80 L Neut % (Auto) 48.2 Lymph % (Auto) 40.2 [place] % (Auto) 9.9 Eos % (Auto) 1.1 Baso % (Auto) 0.3 Neut # (Auto) 1.70 Lymph # (Auto) 1.50 [place] # (Auto) 0.40 Eos # (Auto) 0.00 Baso # (Auto) 0.00 Abs Immat Gran (auto) 0.00 Imm/Tot Granulo (auto) 0.3 VBG pH VBG pCO2 VBG pO2 VBG HCO3 Sodium 139 Potassium 6.0 H Chloride 109 Carbon Dioxide 22 Anion Gap 8 BUN 45 H Creatinine 2.1 H Estimated Creat Clear 28.47 Estimated GFR 33 Glucose 140 H Lactate Calcium 9.0 Phosphorus Magnesium Total Bilirubin 1.7 H Direct Bilirubin 0.0 AST 23 ALT 10 Alkaline Phosphatase 61 Ammonia < 9.0 L Total Creatine Kinase 181 Troponin I C-Reactive Protein < 0.5 L NT-Pro-B Natriuret Pep Total Protein 6.7 Albumin 3.8 Urine Color Yellow Urine Appearance Clear Urine pH 5.5 Ur Specific [place] 1.020 Urine Protein Negative Urine Glucose (UA) Negative Urine Ketones 1+ A Urine Blood Negative Urine Nitrite Negative Urine Bilirubin Negative Urine Urobilinogen 0.2 Ur Leukocyte Esterase Negative Urine RBC 0-2 Urine WBC 0-2 Ur Squamous Epith Cells None Urine Bacteria None Urine Opiates Screen Negative Ur Oxycodone Screen Negative Urine Methadone Screen Negative Ur Propoxyphene Screen Negative Ur Barbiturates Screen Negative U Tricyclic Antidepress Negative Ur Phencyclidine Scrn Negative Ur Amphetamines Screen Negative U Methamphetamines Scrn Negative U Benzodiazepines Scrn Negative Urine Cocaine Screen Negative U Marijuana (THC) Screen POSITIVE A Ur Drug Screen Comment See Note Ethyl Alcohol < 0.01 L Lab Acknowledgement Test Added 01/21/23 01/22/23 23:40 06:00 WBC 2.84 L RBC 3.24 L Hgb 10.3 L Hct 31.6 L MCV 98 MCH 32 MCHC 33 RDW Coeff of [place] 15.2 Plt Count 98 L Neut % (Auto) 57.1 Lymph % (Auto) 32.7 [place] % (Auto) 7.7 Eos % (Auto) 2.1 Baso % (Auto) 0.4 Neut # (Auto) 1.60 L Lymph # (Auto) 0.90 [place] # (Auto) 0.20 Eos # (Auto) 0.10 Baso # (Auto) 0.00 Abs Immat Gran (auto) 0.00 Imm/Tot Granulo (auto) 0.0 VBG pH 7.297 L 7.373 VBG pCO2 44 35 L VBG pO2 49.2 H 66.6 H VBG HCO3 22 20 L Sodium 137 Potassium 5.6 H Chloride 110 Carbon Dioxide 18 L Anion Gap 9 BUN 35 H Creatinine 1.6 H Estimated Creat Clear 45.76 Estimated GFR 46 Glucose 142 H Lactate 0.8 0.5 Calcium 9.0 Phosphorus 3.7 Magnesium 1.6 Total Bilirubin 2.3 H Direct Bilirubin 0.0 AST 27 ALT 9 Alkaline Phosphatase 68 Ammonia Total Creatine Kinase Troponin I 0.01 0.05 H C-Reactive Protein < 0.5 L NT-Pro-B Natriuret Pep 1150 Total Protein 6.7 Albumin 3.7 Urine Color Urine Appearance Urine pH Ur Specific [place] Urine Protein Urine Glucose (UA) Urine Ketones Urine Blood Urine Nitrite Urine Bilirubin Urine Urobilinogen Ur Leukocyte Esterase Urine RBC Urine WBC Ur Squamous Epith Cells Urine Bacteria Urine Opiates Screen Ur Oxycodone Screen Urine Methadone Screen Ur Propoxyphene Screen Ur Barbiturates Screen U Tricyclic Antidepress Ur Phencyclidine Scrn Ur Amphetamines Screen U Methamphetamines Scrn U Benzodiazepines Scrn Urine Cocaine Screen U Marijuana (THC) Screen Ur Drug Screen Comment Ethyl Alcohol Lab Acknowledgement
[2023-01-22 12:25] LABS: HCO3 VBG 22 mmol/L (21-28); Lactate* 0.4 mmol/L (0.5-1.9); PCO2 VBG 35 mmHG (40-50); PO2 VBG 91.3 mmHG (25-47); pH VBG 7.406 (7.32-7.43)
[2023-01-22 12:45] LABS: Albumin* 3.4 g/dL (3.3-5.0); Chloride* 110 mmol/L (96-114); Potassium* 5.9 mmol/L (3.6-5.1); Sodium* 138 mmol/L (135-149)
[2023-01-22 12:48] LABS: Anion Gap 8 mEq/L (7-15); Blood Urea Nitrogen* 33 mg/dL (7-30); Calcium* 8.7 mg/dL (8.4-10.6); Carbon Dioxide* 20 mmol/L (20-32); Creatinine* 1.5 mg/dL (0.5-1.5); Est. Creatinine Clearance* 48.81; Estimated Glomerular Filt Rate 50 ml/min; Glucose* 176 mg/dL (60-115); Phosphorus* 3.7 mg/dL (2.5-4.5)
[2023-01-22] MEDS: ACETAMINOPHEN 325 MG TABLET 650 MG PO ×2 (14:42→18:58)
[2023-01-22] MEDS: fentaNYL 12 mcg/hr PATCH 1 PATCH TRANSDERMA (14:42)
[2023-01-22] MEDS: FUROSEMIDE 10 MG/ML inj 40 MG IVP (14:59)
[2023-01-22] MEDS: DEXTROSE 50 % SYRINGE IVP (15:00)
--- NOTE | 2023-01-22 18:10 | PC.NURSE ---
shift note: vss stable. pt afeb. IV patent x2. Pt a&o x3. LS dim. IS poorly done @ 1000. Pt had lg loose green stool. bruisng & swelling to lt upper buttock. bruising to lt flank. pt has 4+ pitting edema to bilat feet. teds/scd's in place. Pt up 1/walker.
[2023-01-22 19:23] LABS: Chloride* 109 mmol/L (96-114); Potassium* 5.4 mmol/L (3.6-5.1); Sodium* 137 mmol/L (135-149)
[2023-01-22 19:26] LABS: Anion Gap 9 mEq/L (7-15); Blood Urea Nitrogen* 31 mg/dL (7-30); Calcium* 8.7 mg/dL (8.4-10.6); Carbon Dioxide* 19 mmol/L (20-32); Creatinine* 1.5 mg/dL (0.5-1.5); Est. Creatinine Clearance* 48.81; Estimated Glomerular Filt Rate 50 ml/min; Glucose* 221 mg/dL (60-115)
[2023-01-22] MEDS: ATORVASTATIN 10 MG TABLET 20 MG PO (20:57)
[2023-01-22] MEDS: DOXAZOSIN 4 MG TABLET PO (20:59)
[2023-01-23] VITALS (7 sets, daily range): BP systolic 131–163; BP diastolic 65–69; PULSE 64–76; RESP 16–18; TEMP 36–37.1; O2SAT 94–99
--- NOTE | 2023-01-23 06:02 | PC.NURSE ---
End of Shift: Pt pleasant and cooperative throughout shift, denied any pain. O2 saturations lowest at 88% when asleep. Range between 88-98% throughout shift. VSS. No BM throughout shift, 1 incontinent void in brief. Pt slept well.
[2023-01-23] MEDS: SODIUM CHLORIDE 0.9 % (FLUSH) 10 ML SYRINGE 5 ML IVF ×3 (06:09→21:13)
[2023-01-23] MEDS: ACETAMINOPHEN 325 MG TABLET 650 MG PO ×3 (06:15→18:57)
--- NOTE | 2023-01-23 08:22 | CRLHL7_ITS ---
For Patients: As a result of the Century Cures Act, medical imaging exams and procedure reports are released immediately into your electronic medical record. You may view this report before your referring provider. If you have questions, please contact your health care provider. HISTORY: Weakness. Fall. TECHNIQUE: Two views of the chest. COMPARISON: 11/26/2022. FINDINGS: TAVR. Cardiac size within normal limits. No pulmonary vascular congestion. No acute lung infiltrate or pulmonary edema. No pneumothorax or pleural effusion. There are degenerative changes of the spine with mild chronic anterior wedging of a few mid thoracic vertebral bodies. IMPRESSION: 1. TAVR. 2. No lung infiltrate or pulmonary edema. Dictated by Quincy Laird MD @ 01/23/2023 9:39:53 AM Dictated by: Quincy Laird MD @ 01/23/2023 09:39:58 (Electronically Signed)
[2023-01-23] MEDS: METOPROLOL TARTRATE 25 MG TABLET PO ×2 (08:52→21:06)
[2023-01-23] MEDS: TAMSULOSIN HCL 0.4 MG CAPSULE PO (08:52)
[2023-01-23] MEDS: OMEPRAZOLE 20 MG CAPSULE DR 40 MG PO (08:52)
[2023-01-23] MEDS: GABAPENTIN 300 MG CAPSULE PO ×2 (08:52→21:06)
[2023-01-23] MEDS: FERROUS SULFATE 325 MG TABLET PO (08:53)
[2023-01-23] MEDS: CITALOPRAM HYDROBROMIDE 20 MG TABLET PO (08:53)
[2023-01-23] MEDS: ASPIRIN 81 MG TABLET EC PO (08:53)
[2023-01-23 08:54] LABS: Basophils Percent Auto 0.3 % (0.0-3.0); Eosinophils Percent Auto 3.1 % (0.0-7.0); Hematocrit 33.8 % (37.0-53.0); Hemoglobin* 10.9 gm/dL (13.5-17.5); Immature Granulocytes Pct Auto 0.3 %; Lymphocytes Percent Auto 34.8 % (20-44); Mean Corpuscular HGB Conc 32 gm/dL (32-36); Mean Corpuscular Hemoglobin 32 pg (26-34); Mean Corpuscular Volume 99 fL (80-100); Monocytes Percent Auto 7.8 % (0.0-11.0); Neutrophils Percent Auto 53.7 % (42.0-72.0); RDW Coefficient of Variation % 15.7 % (11.5-15.5); White Blood Count* 2.93 K/uL (4.50-11.00)
[2023-01-23] MEDS: CLOPIDOGREL 75 MG TABLET PO (08:55)
[2023-01-23 09:01] LABS: Slide Review Acceptable Review (Acceptable); Slide Review Reflex Yes
[2023-01-23 09:15] LABS: Chloride* 110 mmol/L (96-114)
[2023-01-23 09:16] LABS: Albumin* 3.7 g/dL (3.3-5.0); Sodium* 138 mmol/L (135-149)
[2023-01-23 09:17] LABS: Potassium* 5.1 mmol/L (3.6-5.1)
[2023-01-23 09:18] LABS: Gamma Glutamyl Transpeptidase* 25 U/L (8-55)
[2023-01-23 09:19] LABS: Anion Gap 7 mEq/L (7-15); Aspartate Amino Transferase* 22 U/L (12-35); Bilirubin Total* 1.6 mg/dL (0.1-1.5); Blood Urea Nitrogen* 29 mg/dL (7-30); Carbon Dioxide* 21 mmol/L (20-32); Creatinine* 1.5 mg/dL (0.5-1.5); Est. Creatinine Clearance* 48.81; Estimated Glomerular Filt Rate 50 ml/min; Magnesium* 1.5 mg/dL (1.5-2.6); Total Protein* 6.8 g/dL (6.0-8.3)
[2023-01-23 09:20] LABS: Alanine Aminotransferase* 11 U/L (4-50); Alkaline Phosphatase* 57 U/L (40-150); Calcium* 9.1 mg/dL (8.4-10.6); Glucose* 166 mg/dL (60-115); Phosphorus* 3.9 mg/dL (2.5-4.5)
[2023-01-23 09:22] LABS: C Reactive Protein* < 0.5 mg/dL (0.5-1.0)
[2023-01-23 09:33] LABS: NT Pro B Type NatriureticPept* 1920 pg/mL
[2023-01-23] MEDS: TACROLIMUS 0.5 MG CAPSULE 2 MG PO ×2 (10:36→21:07)
[2023-01-23] MEDS: azaTHIOprine 50 MG TABLET 150 MG PO (10:37)
--- NOTE | 2023-01-23 13:04 | PM.IMPN1 ---
Progress Note: A&P Assessment and plan (1) Weakness: Problem details: - Acute on chronic, possibly exacerbated by acute hyperkalemia. - D/Dx: multifactorial, acute/chronic, hyperkalemia, ROSANA/CKD, dehydration, infection - treat dehydration -cultures pending. Status: Acute (2) Acute hyperkalemia: Problem details: - D/Dx: ROSANA/CKD, electrolyte disturbance, renal transplant status, polypharmacy, rhabdomyolysis (CK normal), trauma/injury (recent fall) - CK negative - IVF and one dose of lasix has improved kidney function and potassium - will plan on repeating this vs glucose/insulin - IVF continues Status: Acute (3) Dehydration: Problem details: - Likely due to decreased oral intake, presumably not on a diuretic at this time - unable to care for self independently in his home. - gentle IV hydration Status: Acute (4) Chronic right hip pain: Problem details: - xray negative. on chronic opioids. question the use of fentanyl given his recurrent falls/hospitalizations. -change fentanyl to 12.5 from 25mcg/72hours. -schedule acetaminophen Status: Acute (5) Acute renal failure superimposed on stage 3 chronic kidney disease: Problem details: - Baseline creatinine 1.1-1.3. creatinine at presentation 2.1; improving on 01/22 - hold ASA and other non-essential medications, and decrease dose of citalopram, gabapentin, etc. Status: Acute (6) Declining functional status: Problem details: - Unable to transfer and ambulate without assistance on 01/21/2023 - this is a recurrent problem. - s/p multiple prior hospitalizations for management of acute medical problems over the past several months, followed by short term SNF transitional care until he demands to return to his home, then returns home for short period of time before returning to hospital with acute medical problems requiring inpatient hospitalization for stabilization, and the cycle repeats. - PT, OT consult - SS consult for discharge planning - I again reviewed this dangerous pattern of hospitalization/TCU in SNF/home briefly/re-hospitalization pattern with patient. He has poor insight and/or acceptance of this downward spiraling pattern of his health. Voiced my opinion to him once again that if he is to succeed in safely maintaining his health status for longer periods of time, given his declining physical health and decreased ability to care for himself independently in his home, that he needs a level of care comparable to what he receives when he is in a SNF. Status: Acute (7) Physical debility: Problem details: Chronic. Hard to imagine him suddenly being able to care for himself independently in his home, given the multiple failed attempts over the past several months. Status: Acute (8) Pancytopenia: Problem details: Etiology not determined. Doubt sepsis. Possible iatrogenic etiologies include aspirin, allopurinol, azathioprine, and furosemide. Consider primary bone marrow failure, infectious and noninfectious causes, verses bone marrow infiltrative processes, such as malignant versus non-malignant etiologies. Did require 2 units of packed red blood cell transfusion when hospitalized from 11/26/22-12/03/22 without apparent blood loss. Status: Acute (9) Type 2 diabetes mellitus treated with insulin: Problem details: - A1c 6.3, usually covered with insulin pump and sliding scale at SNF. - Glipizide on hold 01/21/2023 Status: Acute Subjective Date Seen: 01/23/23 Interval history: Daily Progress Note - Hospital Medicine Day #: 3 CC: Weakness, fall at home, acute hyperkalemia and acute kidney injury OVERNIGHT UPDATES FROM STAFF & MED, LAB, IMAGING UPDATES -more responsive today. more his baseline. still weak but this isn't much off baseline. wants to discharge. poor insight into his total clinical picture and the revolving door the hospital has become. RN: Pt pleasant and cooperative throughout shift, denied any pain. O2 saturations lowest at 88% when asleep. Range between 88-98% throughout shift. VSS. No BM throughout shift, 1 incontinent void in brief. Pt slept well. 131/65. Pulse pulse 67. Rest rate 18.. Afebrile. O2 sat 96% on room air. 106.2 kilos. In November at discharge he was 102.3 CBC is stable. PH is much improved overnight. Potassium is improved from 6.0 down to 5.6 and this was with IV fluids and Lasix Creatinine has improved from 2.1-1.6, baseline 1.1-1.2 Positive for THC Femur x-ray, right hip x-ray A single frontal view of the pelvis along with 2 views of the right hip show bilateral hip arthroplasties which appear intact. No evidence of acute fracture or dislocation. Vascular calcifications. No other bony or soft tissue abnormalities identified. 2 blood cultures are negative to date. Urine culture in progress. Objective: Much more awake. Interactive. Poor short-term memory and insight notable. Vitals: see above Lungs: Clear. Cardiac: S1S2. Disposition/Potential discharge - Likely to return to previous living situation. Today I spent 50minutes seeing the patient, reviewing Expanse and EPIC notes/diagnostics, discussing the care plan with our care time that includes social work, PT/OT, pharmacy, RT, retirement and documenting my impressions and plan in the medical record. Exam Const: Vital Signs, click to edit/add: Vital Signs - 24 hr 01/22/23 15:00 01/22/23 15:00 01/22/23 15:00 Temperature 98 F Pulse Rate [Pulse Oximeter] 76 76 Respiratory Rate 16 16 16 Blood Pressure [Ri ght Arm] 140/67 H Pulse Oximetry 95 94 Oxygen Delivery Me thod Room Air Room Air 01/22/23 19:00 01/22/23 23:00 01/22/23 23:00 Temperature 97.2 F L 97.0 F L Pulse Rate [Pulse Oximeter] 76 73 76 Respiratory Rate 16 16 16 Blood Pressure [Ri ght Arm] 132/67 140/60 H Pulse Oximetry 98 96 Oxygen Delivery Me thod Room Air Room Air 01/22/23 23:00 01/23/23 03:00 01/23/23 07:00 Temperature 97.0 F L Pulse Rate [Pulse Oximeter] 76 Respiratory Rate 16 16 16 Blood Pressure [Ri ght Arm] Pulse Oximetry 98 94 99 Oxygen Delivery Me thod Room Air Room Air Room Air 01/23/23 07:55 01/23/23 12:25 Temperature 98.7 F 97.8 F Pulse Rate [Pulse Oximeter] 72 67 Respiratory Rate 16 18 Blood Pressure [Ri ght Arm] 151/69 H 131/65 Pulse Oximetry 98 96 Oxygen Delivery Me thod Room Air Room Air Labs Labs: Laboratory Results - last 24 hr 01/22/23 01/23/23 19:05 08:45 WBC 2.93 L RBC 3.40 L Hgb 10.9 L Hct 33.8 L MCV 99 MCH 32 MCHC 32 RDW Coeff of [place] 15.7 H Plt Count Neut % (Auto) 53.7 Lymph % (Auto) 34.8 [place] % (Auto) 7.8 Eos % (Auto) 3.1 Baso % (Auto) 0.3 Neut # (Auto) 1.60 L Lymph # (Auto) 1.00 [place] # (Auto) 0.20 Eos # (Auto) 0.10 Baso # (Auto) 0.00 Abs Immat Gran (auto) 0.00 Imm/Tot Granulo (auto) 0.3 Diff Slide Review Acceptable Review Sodium 137 138 Potassium 5.4 H 5.1 Chloride 109 110 Carbon Dioxide 19 L 21 Anion Gap 9 7 BUN 31 H 29 Creatinine 1.5 1.5 Estimated Creat Clear 48.81 48.81 Estimated GFR 50 50 Glucose 221 H 166 H Calcium 8.7 9.1 Phosphorus 3.9 Magnesium 1.5 Total Bilirubin 1.6 H Direct Bilirubin 0.0 GGT 25 AST 22 ALT 11 Alkaline Phosphatase 57 C-Reactive Protein < 0.5 L NT-Pro-B Natriuret Pep 1920 Total Protein 6.8 Albumin 3.7
--- NOTE | 2023-01-23 19:50 | PC.NURSE ---
shift note: pt up 1/walker. pt encouraged to move about in room indept per D.O. Pt needing encouragement to get out of bed to sit up for meals. pt incont in brief and needs prompting to perform miesha care. Groin folds red. Pt vss stable. pt on cont sats 94%RA. Pt stated this afternoon he had slight FERNANDEZ and ice lance applied to neck. Pt remained in bed most of day. IV dc'd intact Rt hand.
[2023-01-23] MEDS: DOXAZOSIN 4 MG TABLET PO (21:06)
[2023-01-23] MEDS: ATORVASTATIN 10 MG TABLET 20 MG PO (21:06)
[2023-01-24 03:00] VITALS: BP 153/85; PULSE 68; RESP 16; TEMP 35.8; O2SAT 97
--- NOTE | 2023-01-24 06:16 | PC.NURSE ---
Addendum entered by Cristina Krishnamurthy RN 01/24/23 06:33: Edit: Pt called nurse into room c/o back pain, rating it 6/10. Scheduled tylenol administered along with PRN oxycodone per pt request. Original Note: End of Shift: Pt remained AO throughout shift. Fentanyl patch remains intact and in place on outer right bicep. VSS. Incontinent with bladder. Pt woke up stating he had soaked his brief in his sleep and needed to be changed. Incontinent with bladder in brief *2 throughout shift. No BM. Pt offered wash cloth to clean self for HS cares, pt refused. Amb with VENICE novoa, SBA.
[2023-01-24] MEDS: ACETAMINOPHEN 325 MG TABLET 650 MG PO ×3 (06:26→18:48)
[2023-01-24] MEDS: OXYCODONE 5 MG TABLET PO (06:29)
[2023-01-24 06:33] LABS: HCO3 VBG 26 mmol/L (21-28); PCO2 VBG 42 mmHG (40-50); PO2 VBG 64.2 mmHG (25-47); pH VBG 7.399 (7.32-7.43)
[2023-01-24 06:34] LABS: Hematocrit 30.3 % (37.0-53.0); Hemoglobin* 9.9 gm/dL (13.5-17.5); Mean Corpuscular HGB Conc 33 gm/dL (32-36); Mean Corpuscular Hemoglobin 32 pg (26-34); Mean Corpuscular Volume 98 fL (80-100); Platelet Count* 78 K/uL (140-440); Red Blood Count 3.08 m/uL (4.30-5.90); White Blood Count* 2.24 K/uL (4.50-11.00)
[2023-01-24 06:45] LABS: Slide Review Reflex No
[2023-01-24 06:59] LABS: Chloride* 108 mmol/L (96-114)
[2023-01-24 07:00] LABS: Albumin* 3.3 g/dL (3.3-5.0); Potassium* 4.9 mmol/L (3.6-5.1); Sodium* 139 mmol/L (135-149)
[2023-01-24 07:02] LABS: Creatinine* 1.2 mg/dL (0.5-1.5); Est. Creatinine Clearance* 61.01; Estimated Glomerular Filt Rate 65 ml/min
[2023-01-24 07:03] LABS: Anion Gap 5 mEq/L (7-15); Blood Urea Nitrogen* 23 mg/dL (7-30); Carbon Dioxide* 26 mmol/L (20-32); Glucose* 158 mg/dL (60-115); Phosphorus* 3.7 mg/dL (2.5-4.5)
[2023-01-24 07:53] VITALS: BP 145/71; PULSE 68; RESP 12; TEMP 37.2; O2SAT 98
[2023-01-24] MEDS: TAMSULOSIN HCL 0.4 MG CAPSULE PO (08:38)
[2023-01-24] MEDS: OMEPRAZOLE 20 MG CAPSULE DR 40 MG PO (08:38)
[2023-01-24] MEDS: ASPIRIN 81 MG TABLET EC PO (08:38)
[2023-01-24] MEDS: CLOPIDOGREL 75 MG TABLET PO (08:38)
[2023-01-24] MEDS: TACROLIMUS 0.5 MG CAPSULE 2 MG PO ×2 (08:38→20:45)
[2023-01-24] MEDS: SODIUM CHLORIDE 0.9 % (FLUSH) 10 ML SYRINGE 5 ML IVF ×2 (08:39→20:46)
[2023-01-24] MEDS: GABAPENTIN 300 MG CAPSULE PO ×2 (08:39→20:45)
[2023-01-24] MEDS: METOPROLOL TARTRATE 25 MG TABLET PO ×2 (08:39→20:45)
[2023-01-24] MEDS: azaTHIOprine 50 MG TABLET 150 MG PO (08:39)
[2023-01-24] MEDS: FERROUS SULFATE 325 MG TABLET PO (08:39)
[2023-01-24] MEDS: CITALOPRAM HYDROBROMIDE 20 MG TABLET PO (08:45)
--- NOTE | 2023-01-24 11:29 | P.IMPN_ITS ---
Progress Note: A&P Assessment and plan (1) Weakness: Problem details: - Acute on chronic, possibly exacerbated by acute hyperkalemia, now resolved - D/Dx: multifactorial, acute/chronic, hyperkalemia, ROSANA/CKD, dehydration, infection - has completed IV fluids - urine and blood cultures show NGTD. No antibiotics Status: Acute (2) Acute hyperkalemia: Problem details: - resolved - D/Dx: ROSANA/CKD, electrolyte disturbance, renal transplant status, polypharmacy, rhabdomyolysis (CK normal), trauma/injury (recent fall) - CK negative - IVF and one dose of lasix improved kidney function and potassium -IVF has been discontinued Status: Acute (3) Dehydration: Problem details: - Likely due to decreased oral intake, presumably not on a diuretic at this time - unable to care for self independently in his home. - IVF discontinued. Adequate oral intake. Status: Acute (4) Chronic right hip pain: Problem details: - xray negative. on chronic opioids. question the use of fentanyl given his recurrent falls/hospitalizations. -change fentanyl to 12.5 from 25mcg/72hours. -schedule acetaminophen Status: Acute (5) Acute renal failure superimposed on stage 3 chronic kidney disease: Problem details: - Baseline creatinine 1.1-1.3. creatinine at presentation 2.1; currently 1.2 - hold ASA and other non-essential medications, and decrease dose of citalopram, gabapentin, etc. Status: Acute (6) Declining functional status: Problem details: - Unable to transfer and ambulate without assistance on 01/21/2023 - this is a recurrent problem. - s/p multiple prior hospitalizations for management of acute medical problems over the past several months, followed by short term SNF transitional care until he demands to return to his home, then returns home for short period of time before returning to hospital with acute medical problems requiring inpatient hospitalization for stabilization, and the cycle repeats. - PT, OT consulted - SS consult for discharge planning - I again reviewed this dangerous pattern of hospitalization/TCU in SNF/home briefly/re-hospitalization pattern with patient. He has poor insight and/or acceptance of this downward spiraling pattern of his health. Voiced my opinion to him once again that if he is to succeed in safely maintaining his health status for longer periods of time, given his declining physical health and decreased ability to care for himself independently in his home, that he needs a level of care comparable to what he receives when he is in a SNF. - MOCA ordered 01/24 Status: Acute (7) Physical debility: Problem details: Chronic. Hard to imagine him suddenly being able to care for himself independently in his home, given the multiple failed attempts over the past several months. Status: Acute (8) Pancytopenia: Problem details: Etiology not determined. Doubt sepsis. Possible iatrogenic etiologies include aspirin, allopurinol, azathioprine, and furosemide. Consider primary bone marrow failure, infectious and noninfectious causes, verses bone marrow infiltrative processes, such as malignant versus non-malignant etiologies. Did require 2 units of packed red blood cell transfusion when hospitalized from 11/26/22-12/03/22 without apparent blood loss. -platelets and WBC stabilized though still low Status: Acute (9) Anemia: Problem details: -hemoglobin dropped to 9.9 (12.2 on admission) -no signs of active bleed, query dilutional secondary to fluids for dehydration -asymptomatic -recheck in a.m. Status: Acute (10) Type 2 diabetes mellitus treated with insulin: Problem details: - A1c 6.3, usually covered with insulin pump and sliding scale at SNF. - Glipizide on hold 01/21/2023 Status: Acute Plan CODE: DNR/DNI VTE PPX: SCDs Disposition: volunteer services coordinator for discharge planning/placement needs. Patient would like to return home however unable to care for himself without recurrent hospitalizations. Time Spent With Patient Total time spent: Total time spent caring for the patient today was 45 minutes. This includes time spent for the visit reviewing the chart, time spent during the visit, time spent after the visit and documentation and planning in coordination of care. Subjective Date Seen: 01/24/23 Interval history: Patient reports feeling ?better? this morning. Tells me he feels back to baseline and would like to be discharged to home. I would agree he lacks insight into his actual overall health or ability to care for himself. Denies dizziness or headache. Denies chest pain or shortness of breath. Tolerating orals without nausea. No events reported overnight. Exam Narrative: Exam Narrative: PHYSICAL EXAM General: Lying in bed, Pleasant, conversant, NAD HEENT: Normocephalic, atraumatic, sclera white, EOMI, oral mucosa moist Cardiovascular: RRR, S1S2. Trace pitting edema Pulmonary: CTA bilaterally without rhonchi, rales, expiratory wheezes. No dyspnea Abdominal: Soft, nondistended, NTTP Neurological: Alert, answering questions appropriately, cranial nerves intact, no focal findings Extremities: No gross joint deformity or swelling. AROMI. Neurovascularly intact Skin: Warm, dry. Const: Vital Signs, click to edit/add: Vital Signs - 24 hr 01/23/23 12:25 01/23/23 15:00 01/23/23 15:00 Temperature 97.8 F Pulse Rate [Pulse Oximeter] 67 67 Respiratory Rate 18 18 18 Blood Pressure [Ri ght Arm] 131/65 Blood Pressure [Ri ght Radial Artery] Pulse Oximetry 96 96 Oxygen Delivery Ia thod Room Air Room Air 01/23/23 15:00 01/23/23 19:00 01/23/23 23:00 Temperature 97.8 F 96.8 F L Pulse Rate [Pulse Oximeter] 67 66 64 Respiratory Rate 18 16 16 Blood Pressure [Ri ght Arm] 131/65 163/68 H Blood Pressure [Ri ght Radial Artery] 137/67 Pulse Oximetry 96 98 Oxygen Delivery Ia thod Room Air Room Air 01/23/23 23:00 01/23/23 23:00 01/24/23 03:00 Temperature 97 F L 96.4 F L Pulse Rate [Pulse Oximeter] 64 68 Respiratory Rate 16 16 16 Blood Pressure [Ri ght Arm] 153/85 H Blood Pressure [Ri ght Radial Artery] Pulse Oximetry 98 96 97 Oxygen Delivery Ia thod Room Air Room Air Room Air 01/24/23 07:53 01/24/23 07:53 01/24/23 07:53 Temperature 99 F Pulse Rate [Pulse Oximeter] 68 68 Respiratory Rate 12 12 12 Blood Pressure [Ri ght Arm] 145/71 H Blood Pressure [Ri ght Radial Artery] Pulse Oximetry 98 98 Oxygen Delivery Ia thod Room Air Room Air Labs Labs: Laboratory Results - last 24 hr 01/24/23 05:37 WBC 2.24 L RBC 3.08 L Hgb 9.9 L Hct 30.3 L MCV 98 MCH 32 MCHC 33 Plt Count 78 L VBG pH 7.399 VBG pCO2 42 VBG pO2 64.2 H VBG HCO3 26 Sodium 139 Potassium 4.9 Chloride 108 Carbon Dioxide 26 Anion Gap 5 L BUN 23 Creatinine 1.2 Estimated Creat Clear 61.01 Estimated GFR 65 Glucose 158 H Calcium 9.0 Phosphorus 3.7 Albumin 3.3
[2023-01-24 11:34] VITALS: BP 148/75; PULSE 62; RESP 12; TEMP 36.6; O2SAT 98
--- NOTE | 2023-01-24 14:11 | PC.SOCIAL ---
Discharge planning: Received call from pt's home earle nurse, Lashell, at [facility] ([phone]) stating they had made a [facility] report yesterday due to their concerns about pt not being safe at home because he can not manage his medications correctly and is not able to care for his needs at home. Received call from Makenna Marquez at [facility] confirming there was a report made and she is actively working on this case. MD report and PT/OT notes sent to Makenna at her request. Met with pt who states he will never go to a usp again. Pt denies there are any concerns with him being able to care for himself at home and states he will only go home at discharge. Pt states his brother is taking care of his dog while he is hospitalized. culture room worker to follow up as needed.
--- NOTE | 2023-01-24 15:19 | NUTR.NU ---
Addendum entered and electronically signed by Kenzie Jimenez RD 01/25/23 10:31: Patient is not appropriate to visit for diet education. RDN will continue to monitor and visit prn. Original Note: RDN attempted to visit with patient regarding diet order multiple times, however patient was not available on all attempts. RDN will attempt on later date.
[2023-01-24 15:32] VITALS: BP 131/61; PULSE 65; RESP 12; TEMP 36.3; O2SAT 97
--- NOTE | 2023-01-24 18:04 | PC.NURSE ---
End of Shift: Patient pleasant and cooperative. Patient vitally stable, lungs clear, BS WNL, IV SL. Patient denies pain. Patient 1 assist, walker, gb. Fentynal patch on right outer arm. Patient has had a BM x3, one which as half incontinent. Patient only ordered lunch today. Blood sugars 169, 162, 214. Patient was up in chair once today, other krishna patient has been napping all day.
[2023-01-24 19:00] VITALS: BP 166/75; PULSE 70; RESP 16; TEMP 36.6; O2SAT 99
[2023-01-24] MEDS: DOXAZOSIN 4 MG TABLET PO (20:45)
[2023-01-24] MEDS: ATORVASTATIN 10 MG TABLET 20 MG PO (20:45)
[2023-01-24 23:00] VITALS: BP 139/73; PULSE 70; RESP 16; TEMP 36.2; O2SAT 96; O2SAT 97
[2023-01-25] MEDS: ACETAMINOPHEN 325 MG TABLET 650 MG PO ×4 (02:01→18:15)
[2023-01-25 03:00] VITALS: PULSE 68; RESP 16; TEMP 35.9; O2SAT 97
--- NOTE | 2023-01-25 06:31 | PC.NURSE ---
End of Shift: Pt pleasant throughout shift, remained AO. Pain well-tolerated with fentanyl patch on outer right arm and scheduled Tylenol. Pt denied any SOB. No BM, urine brief *1. Slept well. Utilized walker with GB and SBA.
[2023-01-25 08:32] VITALS: BP 148/55; PULSE 64; RESP 12; TEMP 36.9; O2SAT 98
[2023-01-25] MEDS: TAMSULOSIN HCL 0.4 MG CAPSULE PO (08:35)
[2023-01-25] MEDS: GABAPENTIN 300 MG CAPSULE PO ×2 (08:35→19:54)
[2023-01-25] MEDS: METOPROLOL TARTRATE 25 MG TABLET PO ×2 (08:35→19:54)
[2023-01-25] MEDS: ASPIRIN 81 MG TABLET EC PO (08:35)
[2023-01-25] MEDS: azaTHIOprine 50 MG TABLET 150 MG PO (08:36)
[2023-01-25] MEDS: CITALOPRAM HYDROBROMIDE 20 MG TABLET PO (08:36)
[2023-01-25] MEDS: OMEPRAZOLE 20 MG CAPSULE DR 40 MG PO (08:36)
[2023-01-25] MEDS: TACROLIMUS 0.5 MG CAPSULE 2 MG PO ×2 (08:36→19:53)
[2023-01-25] MEDS: CLOPIDOGREL 75 MG TABLET PO (08:36)
[2023-01-25] MEDS: FERROUS SULFATE 325 MG TABLET PO (08:36)
[2023-01-25] MEDS: SODIUM CHLORIDE 0.9 % (FLUSH) 10 ML SYRINGE 5 ML IVF ×2 (08:37→19:55)
[2023-01-25 09:18] LABS: Basophils Percent Auto 0.4 % (0.0-3.0); Eosinophils Percent Auto 4.3 % (0.0-7.0); Hematocrit 29.9 % (37.0-53.0); Immature Granulocytes Pct Auto 0.4 %; Lymphocytes Percent Auto 37.5 % (20-44); Mean Corpuscular HGB Conc 33 gm/dL (32-36); Mean Corpuscular Hemoglobin 33 pg (26-34); Mean Corpuscular Volume 97 fL (80-100); Monocytes Percent Auto 7.8 % (0.0-11.0); Neutrophils Percent Auto 49.6 % (42.0-72.0); Platelet Count* 81 K/uL (140-440); Red Blood Count 3.08 m/uL (4.30-5.90); White Blood Count* 2.32 K/uL (4.50-11.00)
[2023-01-25 09:20] LABS: Slide Review Reflex No
[2023-01-25 09:35] LABS: Chloride* 107 mmol/L (96-114); Sodium* 137 mmol/L (135-149)
[2023-01-25 09:36] LABS: Potassium* 4.7 mmol/L (3.6-5.1)
[2023-01-25 09:38] LABS: Creatinine* 1.2 mg/dL (0.5-1.5); Est. Creatinine Clearance* 61.01; Estimated Glomerular Filt Rate 65 ml/min
[2023-01-25 09:39] LABS: Anion Gap 7 mEq/L (7-15); Blood Urea Nitrogen* 19 mg/dL (7-30); Calcium* 8.8 mg/dL (8.4-10.6); Carbon Dioxide* 23 mmol/L (20-32); Glucose* 168 mg/dL (60-115)
[2023-01-25 11:00] VITALS: BP 139/67; PULSE 71; RESP 16; TEMP 36.8; O2SAT 97
[2023-01-25] MEDS: fentaNYL 12 mcg/hr PATCH 1 PATCH TRANSDERMA (12:51)
--- NOTE | 2023-01-25 14:02 | PC.NURSE ---
End of Shift: Patient pleasant and cooperative. Patient vitally stable, lungs clear, BS WNL, IV SL. Patient denies pain. Patient SBA with walker. Fentanyl patch on right shoulder. Patient BS's 170 and 199. Patient urinating and has had X3 BMs. Patient was up in chair for dinner but napping on and off all day.
--- NOTE | 2023-01-25 14:08 | P.IMPN_ITS ---
Progress Note: A&P Assessment and plan (1) Weakness: Problem details: - Acute on chronic, possibly exacerbated by acute hyperkalemia, now resolved - D/Dx: multifactorial, acute/chronic, hyperkalemia, ROSANA/CKD, dehydration, infection - has completed IV fluids - urine and blood cultures show NGTD. No antibiotics - continues to work with PT/OT Status: Acute (2) Acute hyperkalemia: Problem details: - resolved - D/Dx: ROSANA/CKD, electrolyte disturbance, renal transplant status, polypharmacy, rhabdomyolysis (CK normal), trauma/injury (recent fall) - CK negative - IVF and one dose of lasix improved kidney function and potassium - IVF has been discontinued Status: Acute (3) Dehydration: Problem details: - Likely due to decreased oral intake, presumably not on a diuretic at this time - unable to care for self independently in his home. - IVF discontinued. Adequate oral intake. Status: Acute (4) Chronic right hip pain: Problem details: - xray negative. on chronic opioids. question the use of fentanyl given his recurrent falls/hospitalizations. - change fentanyl to 12.5 from 25mcg/72hours. - schedule acetaminophen Status: Acute (5) Acute renal failure superimposed on stage 3 chronic kidney disease: Problem details: - stable. Baseline creatinine 1.1-1.3. creatinine at presentation 2.1; currently 1.2 - hold ASA and other non-essential medications, and decrease dose of citalopram, gabapentin, etc. Status: Acute (6) Declining functional status: Problem details: - Unable to transfer and ambulate without assistance on 01/21/2023 - this is a recurrent problem. - s/p multiple prior hospitalizations for management of acute medical problems over the past several months, followed by short term SNF transitional care until he demands to return to his home, then returns home for short period of time be fore returning to hospital with acute medical problems requiring inpatient hospitalization for stabilization, and the cycle repeats. - PT, OT consulted - consult for discharge planning - I again reviewed this dangerous pattern of hospitalization/TCU in SNF/home briefly/re-hospitalization pattern with patient. He has poor insight and/or acceptance of this downward spiraling pattern of his health. Voiced my opinion to him once again that if he is to succeed in safely maintaining his health status for longer periods of time, given his declining physical health and decreased ability to care for himself independently in his home, that he needs a level of care comparable to what he receives when he is in a SNF. - MOCA 22 on 01/24, decreased from 25 in October 2022 Status: Acute (7) Physical debility: Problem details: Chronic. Hard to imagine him suddenly being able to care for himself independ ently in his home, given the multiple failed attempts over the past several months. Status: Acute (8) Pancytopenia: Problem details: Etiology not determined. Doubt sepsis. Possible iatrogenic etiologies include aspirin, allopurinol, azathioprine, and furosemide. Consider primary bone marrow failure, infectious and noninfectious causes, verses bone marrow infiltrative processes, such as malignant versus non-malignant etiologies. Did require 2 units of packed red blood cell transfusion when hospitalized from 11/26/22-12/03/22 without apparent blood loss. -stable, slowly trending up Status: Acute (9) Anemia: Problem details: -hemoglobin dropped to 9.9 (12.2 on admission), now trending up -no signs of active bleed, query dilutional secondary to fluids for dehydration -asymptomatic -recheck in a.m. Status: Acute (10) Type 2 diabetes mellitus treated with insulin: Problem details: - A1c 6.3, usually covered with insulin pump and sliding scale at SNF. - Glipizide on hold 01/21/2023 Status: Acute Plan Awaiting appropriate discharge plan Time Spent With Patient Total time spent: Total time spent caring for the patient today was 45 minutes. This includes time spent for the visit reviewing the chart, time spent during the visit, time spent after the visit and documentation and planning in coordination of care. Subjective Date Seen: 01/25/23 Interval history: Patient sleepy this morning, barely able to stay awake during exam. No complaints. No events reported overnight. Denies dizziness or headache. Denies chest pain or shortness of breath. Tolerating orals without nausea. Exam 2 Narrative: Exam Narrative: PHYSICAL EXAM General: Sleepy mid morning, otherwise NAD HEENT: Normocephalic, atraumatic, sclera white, EOMI, oral mucosa moist Cardiovascular: RRR, S1S2. Trace pitting edema Pulmonary: CTA bilaterally without rhonchi, rales, expiratory wheezes. No dyspnea Abdominal: Soft, obese, nondistended, NTTP Neurological: Sleepy Extremities: No gross joint deformity or swelling. AROMI. Neurovascularly intact Skin: Warm, dry. Const: Vital Signs, click to edit/add: Vital Signs - 24 hr 01/24/23 15:32 01/24/23 15:32 01/24/23 15:32 Temperature 97.4 F L Pulse Rate [Pulse Oximeter] 65 65 Respiratory Rate 12 12 12 Blood Pressure [Ri ght Arm] 131/61 Pulse Oximetry 97 97 Oxygen Delivery Me thod Room Air Room Air 01/24/23 19:00 01/24/23 23:00 01/24/23 23:00 Temperature 97.9 F Pulse Rate [Pulse Oximeter] 70 70 Respiratory Rate 16 16 16 Blood Pressure [Ri ght Arm] 166/75 H Pulse Oximetry 99 96 Oxygen Delivery Me thod Room Air Room Air 01/24/23 23:00 01/25/23 03:00 01/25/23 08:32 Temperature 97.1 F L 96.6 F L 98.5 F Pulse Rate [Pulse Oximeter] 70 68 64 Respiratory Rate 16 16 12 Blood Pressure [Ri ght Arm] 139/73 148/55 H Pulse Oximetry 97 97 98 Oxygen Delivery Me thod Room Air Room Air Room Air 01/25/23 08:32 01/25/23 08:32 01/25/23 11:00 Temperature 98.3 F Pulse Rate [Pulse Oximeter] 64 71 Respiratory Rate 12 12 16 Blood Pressure [Ri ght Arm] 139/67 Pulse Oximetry 98 97 Oxygen Delivery Me thod Room Air Room Air Labs Labs: Laboratory Results - last 24 hr 01/25/23 09:00 WBC 2.32 L RBC 3.08 L Hgb 10.0 L Hct 29.9 L MCV 97 MCH 33 MCHC 33 RDW Coeff of [place] 15.0 Plt Count 81 L Neut % (Auto) 49.6 Lymph % (Auto) 37.5 [place] % (Auto) 7.8 Eos % (Auto) 4.3 Baso % (Auto) 0.4 Neut # (Auto) 1.20 L Lymph # (Auto) 0.90 [place] # (Auto) 0.20 Eos # (Auto) 0.10 Baso # (Auto) 0.00 Abs Immat Gran (auto) 0.00 Imm/Tot Granulo (auto) 0.4 Sodium 137 Potassium 4.7 Chloride 107 Carbon Dioxide 23 Anion Gap 7 BUN 19 Creatinine 1.2 Estimated Creat Clear 61.01 Estimated GFR 65 Glucose 168 H Calcium 8.8
[2023-01-25 15:00] VITALS: BP 143/73; PULSE 77; RESP 14; RESP 16; TEMP 36.9; O2SAT 96
[2023-01-25 19:00] VITALS: BP 150/67; PULSE 72; RESP 18; TEMP 36.6; O2SAT 97
[2023-01-25] MEDS: ATORVASTATIN 10 MG TABLET 20 MG PO (19:54)
[2023-01-25] MEDS: DOXAZOSIN 4 MG TABLET PO (19:54)
[2023-01-25 23:00] VITALS: BP 136/61; PULSE 63; RESP 18; TEMP 36.7; O2SAT 97
[2023-01-26] MEDS: ACETAMINOPHEN 325 MG TABLET 650 MG PO ×2 (00:59→06:48)
[2023-01-26 03:00] VITALS: RESP 18
[2023-01-26 06:43] LABS: Basophils Percent Auto 0.3 % (0.0-3.0); Eosinophils Percent Auto 2.8 % (0.0-7.0); Hematocrit 30.2 % (37.0-53.0); Immature Granulocytes Pct Auto 0.3 %; Lymphocytes Percent Auto 32.2 % (20-44); Mean Corpuscular HGB Conc 33 gm/dL (32-36); Mean Corpuscular Hemoglobin 33 pg (26-34); Mean Corpuscular Volume 98 fL (80-100); Neutrophils Percent Auto 56.4 % (42.0-72.0); Platelet Count* 80 K/uL (140-440); RDW Coefficient of Variation % 15.3 % (11.5-15.5); Red Blood Count 3.07 m/uL (4.30-5.90); White Blood Count* 3.26 K/uL (4.50-11.00)
[2023-01-26 07:10] LABS: Chloride* 107 mmol/L (96-114); Potassium* 4.6 mmol/L (3.6-5.1); Sodium* 136 mmol/L (135-149)
[2023-01-26 07:12] LABS: Creatinine* 1.3 mg/dL (0.5-1.5); Est. Creatinine Clearance* 56.31; Estimated Glomerular Filt Rate 59 ml/min
[2023-01-26 07:13] LABS: Anion Gap 5 mEq/L (7-15); Blood Urea Nitrogen* 22 mg/dL (7-30); Calcium* 8.9 mg/dL (8.4-10.6); Carbon Dioxide* 24 mmol/L (20-32); Glucose* 146 mg/dL (60-115)
[2023-01-26 07:20] LABS: Slide Review Reflex No
--- NOTE | 2023-01-26 07:26 | PC.NURSE ---
23-07: pleasant and cooperative. Calls appropriately. VS WNL. No c/o pain. Pt did report a mild headache at the time his Tylenol was due, stated that it offered relief.
[2023-01-26 08:10] VITALS: O2SAT 97
[2023-01-26 08:15] VITALS: BP 130/73; PULSE 66; RESP 18; TEMP 36.8; O2SAT 96
[2023-01-26] MEDS: OXYCODONE 5 MG TABLET PO (10:09)
[2023-01-26] MEDS: METOPROLOL TARTRATE 25 MG TABLET PO (10:09)
[2023-01-26] MEDS: CLOPIDOGREL 75 MG TABLET PO (10:09)
[2023-01-26] MEDS: GABAPENTIN 300 MG CAPSULE PO (10:10)
[2023-01-26] MEDS: ASPIRIN 81 MG TABLET EC PO (10:10)
[2023-01-26] MEDS: CITALOPRAM HYDROBROMIDE 20 MG TABLET PO (10:10)
[2023-01-26] MEDS: FERROUS SULFATE 325 MG TABLET PO (10:10)
[2023-01-26] MEDS: TAMSULOSIN HCL 0.4 MG CAPSULE PO (10:10)
[2023-01-26] MEDS: OMEPRAZOLE 20 MG CAPSULE DR 40 MG PO (10:10)
[2023-01-26] MEDS: TACROLIMUS 0.5 MG CAPSULE 2 MG PO (10:11)
[2023-01-26] MEDS: azaTHIOprine 50 MG TABLET 150 MG PO (10:11)
[2023-01-26] MEDS: SODIUM CHLORIDE 0.9 % (FLUSH) 10 ML SYRINGE 5 ML IVF (10:11)
--- NOTE | 2023-01-26 10:16 | PC.SOCIAL ---
Addendum entered by LUCILA Watts 01/26/23 10:34: [facility] has confirmed they will start home care PT/OT/RN tomorrow morning at 10:00. [facility] referral has been submitted online with confirmation number of [id number]. Original Note: Discharge planning: Per MD order for home care to be resumed, called [facility] and spoke with nurse Lashell. Lashell states they are unable to accept pt back on service as they reported him as a vulnerable adult to [facility] and do not feel he should be at home. Called [facility] Vulnerable adult worker, Makenna Marquez, who confirms she has spoken with pt and that he is refusing a snf because of his past experience and wants to go home. Makenna is aware of plan to discharge him home with home care services and [facility] Linkage Line referral. Met with pt regarding d/c plan. Pt is aware [facility] will no longer provide services and requested this be arranged with [facility]. Called and left message for [facility] and awaiting all back. Pt is agreeable to a referral to [facility] Linkage Line for an assessment of qualifications for free supportive services at home. sheet metal production worker made an online referral to [facility]. Pt states he can call someone for a ride home at discharge. sheet metal production worker to follow up on arranging for home care with MD order.
--- NOTE | 2023-01-26 10:45 | PC.SOCIAL ---
Discharge plans: At pt request, called brother Michael for ride home. Michael stated he would rather have pt go to a penitentiary facility but knows that he refuses to do that. Brother was pleased home care has been arranged with [facility] and was also informed of the [facility] referral. will pick pt up today at noon for discharge home.
[2023-01-26 11:25] VITALS: BP 118/65; PULSE 65; RESP 18; TEMP 36.9; O2SAT 97
--- NOTE | 2023-01-26 12:29 | PC.NURSE ---
Pt alert and oriented. Pt SBA with walker and gait belt. Pt had complaints of pain ranging from 0-8. Pt slept most of morning. Pt refused breakfast and lunch- insulin held. Pt discharged home accompanied by brother.
--- NOTE | 2023-01-26 13:15 | P.DS_ITS ---
DS: Providers Provider Date Seen: 01/26/23 Date of admission: 01/21/23 22:33 Primary care physician: Rubén Boyle MD Admitting Clinician: Chino Bhakta MD Consults: 01/21/23 22:33 Consult to Occupational Therapy [CONS] Routine Comment: Reason(s) for OT Consult:: Evaluate and Treat Any Restrictions?:: No Restrictions Consult to Physical Therapy [CONS] Routine Comment: Reason(s) for PT Consult:: Evaluate and Treat Any Restrictions?:: No Restrictions Consult to Proofing Machine Operator [CONS] Routine Comment: Reason for Consult:: Discharge Planning Needs 01/21/23 23:29 Consult to Occupational Therapy [CONS] Routine Comment: Reason(s) for OT Consult:: Difficulty Managing ADLs Any Restrictions?:: No Restrictions Consult to Physical Therapy [CONS] Routine Comment: Reason(s) for PT Consult:: Balance Assessment Any Restrictions?:: No Restrictions 01/24/23 11:46 Consult to Occupational Therapy [CONS] Routine Comment: Reason(s) for OT Consult:: Evaluate and Treat Any Restrictions?:: No Restrictions Comment: MOCA please Attending Physician on discharge: Maria Victoria Epps [facility], PA-C [facility] Date of Discharge: 01/26/23 DS: Diagnosis Discharge Diagnosis (1) Acute renal failure superimposed on stage 3 chronic kidney disease: Status: Acute Problem details: - Baseline creatinine 1.1-1.3. creatinine on admission was 2.1, down trended and stabilized. 1.3 on day of discharge. - hold ASA and other non-essential medications, and decrease dose of citalopram, gabapentin, etc. on admission - recommend outpatient follow-up with PCP for chronic management (2) Acute hyperkalemia: Status: Acute Problem details: - resolved prior to discharge - D/Dx: ROSANA/CKD, electrolyte disturbance, renal transplant status, polypharmacy, rhabdomyolysis (CK normal), trauma/injury (recent fall) - CK negative - IVF and one dose of lasix improved kidney function and potassium (3) Anemia: Status: Acute Problem details: -hemoglobin dropped to 9.9 (12.2 on admission), trending up after stopping IV hydration, 10.0 on day of discharge. -no signs of active bleed, query dilutional secondary to fluids for dehydration -remained asymptomatic at rest and with ambulation -outpatient follow-up with PCP for recheck (4) Chronic right hip pain: Status: Acute Problem details: - xray negative. on chronic opioids. question the use of fentanyl given his recurrent falls/hospitalizations. - change fentanyl to 12.5 from 25mcg/72hours. - schedule acetaminophen -outpatient follow-up with PCP for ongoing pain management (5) Weakness: Status: Acute Problem details: - Acute on chronic, recurrent, possibly exacerbated by acute hyperkalemia, now resolved - D/Dx: multifactorial, acute/chronic, hyperkalemia, ROSANA/CKD, dehydration, infection - completed IV fluids - urine and blood cultures show NGTD. No antibiotics - continues to work with PT/OT - recommend home therapy at least for a short course (6) Declining functional status: Status: Acute Problem details: - Unable to transfer and ambulate without assistance on 01/21/2023 - this is a recurrent problem. - s/p multiple prior hospitalizations for management of acute medical problems over the past several months, followed by short term SNF transitional care until he demands to return to his home, then returns home for short period of time before returning to hospital with acute medical problems requiring inpatient hospitalization for stabilization, and the cycle repeats. - PT, OT consulted - SS consult for discharge planning - I again reviewed this dangerous pattern of hospitalization/TCU in SNF/home briefly/re-hospitalization pattern with patient. He has poor insight and/or acceptance of this downward spiraling pattern of his health. Voiced my opinion to him once again that if he is to succeed in safely maintaining his health status for longer periods of time, given his declining physical health and decreased ability to care for himself independently in his home, that he needs a level of care comparable to what he receives when he is in a SNF. - MOCA 22 on 01/24, decreased from 25 in October 2022 - will need ongoing support from PCP - discharged to home with home health services - medication management, therapy (7) Dehydration: Status: Acute Problem details: - Likely due to decreased oral intake, presumably not on a diuretic at this time - unable to care for self independently in his home on a recurrent basis. - IVF discontinued. Adequate oral intake noted prior to discharge (8) Pancytopenia: Status: Acute Problem details: Etiology not determined. Doubt sepsis. Possible iatrogenic etiologies include aspirin, allopurinol, azathioprine, and furosemide. Consider primary bone marrow failure, infectious and noninfectious causes, verses bone marrow infiltrative processes, such as malignant versus non-malignant etiologies. Did require 2 units of packed red blood cell transfusion when hospitalized from 11/26/22-12/03/22 without apparent blood loss. -stable, slowly trending up. -follow-up outpatient with PCP for recheck (9) Type 2 diabetes mellitus treated with insulin: Status: Acute Problem details: - A1c 6.3, usually covered with insulin pump and sliding scale at SNF. - home medications resumed on time of discharge DS: Summary Hospital Course Hospital Course: [age] year old male past medical history significant for diabetes mellitus with neuropathy, CHF, GERD, MDD, pancytopenia, CKD, hyperlipidemia, chronic pain was admitted to the medical floor for further management recurrent weakness in setting of acute on chronic kidney failure, hyperkalemia, dehydration. Course of care and details as noted above. Remainder of chronic medical comorbidities were monitored and managed with home medications. Status at Discharge Functional status at discharge: independent ambulation Overall status at discharge: patient is progressing back to baseline Time Spent with Patient Time attestation: Total time spent providing and/or coordinating discharge services: Time spent: Greater than 30 minutes Exam Narrative: Exam Narrative: PHYSICAL EXAM General: Awake and alert this morning, conversant, NAD HEENT: Normocephalic, atraumatic, sclera white, EOMI, oral mucosa moist Cardiovascular: RRR, S1S2. No pitting edema Pulmonary: CTA bilaterally without rhonchi, rales, expiratory wheezes. No dyspnea Neurological: Alert, answering questions appropriately, cranial nerves intact, no focal findings Extremities: No gross joint deformity or swelling. AROMI. Neurovascularly intact Skin: Warm, dry. Const: Vital Signs, click to edit/add: Vital Signs - 24 hr 01/25/23 15:00 01/25/23 15:00 01/25/23 15:00 Temperature 98.4 F Pulse Rate [Pulse Oximeter] 77 77 Respiratory Rate 16 14 14 Blood Pressure [Ri ght Arm] 143/73 H Pulse Oximetry 96 96 Oxygen Delivery Me thod Room Air Room Air 01/25/23 19:00 01/25/23 23:00 01/25/23 23:00 Temperature 98 F Pulse Rate [Pulse Oximeter] 72 63 Respiratory Rate 18 18 18 Blood Pressure [Ri ght Arm] 150/67 H Pulse Oximetry 97 97 Oxygen Delivery Me thod Room Air Room Air 01/25/23 23:00 01/26/23 03:00 01/26/23 08:10 Temperature 98.1 F Pulse Rate [Pulse Oximeter] 63 Respiratory Rate 18 18 Blood Pressure [Ri ght Arm] 136/61 Pulse Oximetry 97 97 Oxygen Delivery Me thod Room Air Room Air 01/26/23 08:15 01/26/23 11:25 Temperature 98.3 F 98.5 F Pulse Rate [Pulse Oximeter] 66 65 Respiratory Rate 18 18 Blood Pressure [Ri ght Arm] 130/73 118/65 Pulse Oximetry 96 97 Oxygen Delivery Me thod Room Air Room Air DS: Data Data Completed and Pending Completed studies during hospitalization: Procedures Transfusion of Nonautologous Red Blood Cells into Peripheral Vein, Percutaneous Approach (11/26/22) Labs on day of discharge: Labs from last 24 hours 01/26/23 05:51 WBC 3.26 L RBC 3.07 L Hgb 10.0 L Hct 30.2 L MCV 98 MCH 33 MCHC 33 RDW Coeff of [place] 15.3 Plt Count 80 L Neut % (Auto) 56.4 Lymph % (Auto) 32.2 [place] % (Auto) 8.0 Eos % (Auto) 2.8 Baso % (Auto) 0.3 Neut # (Auto) 1.80 Lymph # (Auto) 1.00 [place] # (Auto) 0.30 Eos # (Auto) 0.10 Baso # (Auto) 0.00 Abs Immat Gran (auto) 0.00 Imm/Tot Granulo (auto) 0.3 Sodium 136 Potassium 4.6 Chloride 107 Carbon Dioxide 24 Anion Gap 5 L BUN 22 Creatinine 1.3 Estimated Creat Clear 56.31 Estimated GFR 59 Glucose 146 H Calcium 8.9 Preliminary micro results at discharge 01/21/23 22:50 Blood Culture - Preliminary Blood NO GROWTH AFTER 96 HOURS 01/21/23 23:40 Blood Culture - Preliminary Blood NO GROWTH AFTER 96 HOURS Discharge Plan Discharge Disposition: Home, Self-Care Date of Admission: 01/21/23 22:33 Attending Provider on Discharge: Maria Victoria Epps Primary Care Provider: Rubén Boyle Condition: Unchanged Anticipated Discharge Date/Time: 01/26/23 11:00 Discharge Medications: Continued citalopram [Celexa] 40 mg tablet 40 mg PO DAILY Qty: 90 3RF gabapentin 600 mg tablet 600 mg PO BID Qty: 180 3RF clopidogrel 75 mg tablet 75 mg PO DAILY glipizide 5 mg Tablet 5 mg PO DAILYWM Qty: 30 0RF doxazosin 4 mg tablet 4 mg PO HS acetaminophen 325 mg Tablet 650 mg PO Q6H PRN30 Days Qty: 50 0RF insulin aspart U-100 [Novolog FlexPen U-100 Insulin] 100 unit/mL (3 mL) Insulin Pen See Rx Instructions .ROUTE .COMPLEX Qty: 15 0RF Rx Instructions: [place] scale insulin dosing for glucose levels: less than 150, 0 units; 151-200, 3 units; 201-250, 6 units; 251-300, 9 units; 301-350, 12 units; 351-400, 15 units; greater than 400, notify clinician. insulin aspart U-100 100 unit/mL solution 100 unit subcut DAILY Qty: 10 0RF Patient Comments: VIA INSULIN PUMP Rx Instructions: Subcutaneous insulin pump aspirin [Adult Aspirin Regimen] 81 mg tablet,delayed release (DR/EC) 81 mg PO DAILY azathioprine 50 mg tablet 150 mg PO DAILY tacrolimus 0.5 mg capsule 2 mg PO BID Patient Comments: ferrous sulfate 325 mg (65 mg iron) tablet 325 mg PO DAILY tamsulosin 0.4 mg capsule 0.4 mg PO DAILY cholecalciferol (vitamin D3) 25 mcg (1,000 unit) capsule 4,000 unit PO DAILY metoprolol tartrate 25 mg Tablet 25 mg PO BID Qty: 60 0RF omeprazole 40 mg capsule,delayed release(DR/EC) 40 mg PO DAILY oxycodone 5 mg tablet 5 mg PO Q6H PRN (Reason: pain) Qty: 20 0RF fentanyl 25 mcg/hr patch 72 hour 1 patch transdermal Q48H Qty: 15 0RF atorvastatin 20 mg tablet 20 mg PO HS Qty: 90 0RF Discharge Orders: Discharge Order (Routine); Ordered 01/26/23 Ordered By: Maria Victoria Epps Patient Education: Acute Kidney Injury (GEN), Hyperkalemia (GEN) Additional Instructions: You will need to follow up with your PCP to recheck labs, CBC and BMP. It is important you take your medications as prescribed, stay hydrated, and stay active. Activity Level: Activity as Tolerated Discharge Diet: Diabetic Follow Up Appointments: Rubén Boyle MD [Primary Care Provider] - 02/02/23 9:30 am ([facility] for post hospital follow-up, with labs - ROSANA/CKD, hyperkalemia, pancytopenia. ) Forms: adicate timeads Info Instructions
== END 2023-01-26 12:15 | disposition home or self-care (01) | DRG 683 ==
LOC: ED 20:42 → MEDSURG 21:55
PROVIDERS: Family Medicine; Physician Assistant; Admitting Provider Internal Medicine; Emergency Provider Emergency Medicine Emergency Medical Services; PCP Family Medicine; Visit Provider Internal Medicine
DX: N17.9 Acute kidney failure, unspecified (principal); D61.818 Other pancytopenia; I13.0 Hypertensive heart and chronic kidney disease with heart failure and stage 1 through stage 4 chronic kidney disease, or unspecified chronic kidney disease; Z94.0 Kidney transplant status; Z94.4 Liver transplant status; F32.1 Major depressive disorder, single episode, moderate; E87.5 Hyperkalemia; E11.22 Type 2 diabetes mellitus with diabetic chronic kidney disease; N18.30 Chronic kidney disease, stage 3 unspecified; E11.40 Type 2 diabetes mellitus with diabetic neuropathy, unspecified; E86.0 Dehydration; R53.1 Weakness; I34.0 Nonrheumatic mitral (valve) insufficiency; D64.9 Anemia, unspecified; N40.0 Benign prostatic hyperplasia without lower urinary tract symptoms; G89.4 Chronic pain syndrome; F10.11 Alcohol abuse, in remission; M25.551 Pain in right hip; Z79.4 Long term (current) use of insulin; Z95.5 Presence of coronary angioplasty implant and graft; Z95.2 Presence of prosthetic heart valve
CPT/HCPCS: 36415; 71046; 73502; 80048; 80053; 80069; 80076; 80306; 81001; 82077; 82140; 82248; 82550; 82803; 82962; 82977; 83605; 83735; 83880; 84100; 84484; 85025; 85027; 86140; 87040; 87086; 93005; 97110; 97116; 97162; 97165; 97530; 97535; 99284; 99285; A9270; J1940; J7030; J7050; J7500; J7507

== ENCOUNTER 2023-03-01 12:26 | Inpatient (IN) | payer MEDICARE, BC, SELFPAY ==
[2023-03-01 12:38] VITALS: BP 136/81; PULSE 117; RESP 20; TEMP 36.3; O2SAT 100; BMI 28.3
[2023-03-01 13:01] VITALS: O2SAT 100
[2023-03-01 13:36] LABS: Lactate* 0.9 mmol/L (0.5-1.9)
[2023-03-01 13:38] LABS: Basophils Absolute Auto 0.01 K/uL (0.00-0.30); Basophils Percent Auto 0.2 % (0.0-3.0); Eosinophils Absolute Auto 0.04 K/uL (0.00-0.50); Eosinophils Percent Auto 0.7 % (0.0-7.0); Hematocrit 36.9 % (37.0-53.0); Hemoglobin* 12.5 gm/dL (13.5-17.5); Immature Granulocytes Abs Auto 0.08 K/uL (0.00-0.30); Immature Granulocytes Pct Auto 1.4 %; Lymphocytes Percent Auto 14.6 % (20-44); Mean Corpuscular HGB Conc 34 gm/dL (32-36); Mean Corpuscular Hemoglobin 32 pg (26-34); Mean Corpuscular Volume 94 fL (80-100); Monocytes Percent Auto 9.2 % (0.0-11.0); Neutrophils Percent Auto 73.9 % (42.0-72.0); Platelet Count* 195 K/uL (140-440); RDW Coefficient of Variation % 15.5 % (11.5-15.5); Red Blood Count 3.93 m/uL (4.30-5.90); White Blood Count* 5.67 K/uL (4.50-11.00)
[2023-03-01 13:50] LABS: Slide Review Reflex No
[2023-03-01 13:56] LABS: Albumin* 4.1 g/dL (3.3-5.0); Chloride* 105 mmol/L (96-114); Sodium* 131 mmol/L (135-149)
[2023-03-01 13:58] LABS: Creatinine* 1.8 mg/dL (0.5-1.5); Est. Creatinine Clearance* 40.67; Estimated Glomerular Filt Rate 40 ml/min
[2023-03-01 13:59] LABS: Alanine Aminotransferase* 9 U/L (4-50); Alkaline Phosphatase* 80 U/L (40-150); Anion Gap 14 mEq/L (7-15); Aspartate Amino Transferase* 22 U/L (12-35); Bilirubin Direct* 0.3 mg/dL (0.0-0.5); Bilirubin Total* 1.1 mg/dL (0.1-1.5); Blood Urea Nitrogen* 24 mg/dL (7-30); Carbon Dioxide* 12 mmol/L (20-32); Glucose* 175 mg/dL (60-115); Total Protein* 7.6 g/dL (6.0-8.3)
[2023-03-01 14:00] LABS: Calcium* 9.3 mg/dL (8.4-10.6); Magnesium* 1.3 mg/dL (1.5-2.6)
[2023-03-01 14:09] LABS: NT Pro B Type NatriureticPept* 580 pg/mL
[2023-03-01 14:15] LABS: Troponin I* 0.16 ng/mL (0.01-0.04)
--- NOTE | 2023-03-01 14:23 | ED.GENADULT ---
HPI - General Adult General Chief complaint: Weakness Stated complaint: low blood pressure Time Seen by Provider: 03/01/23 12:56 History of Present Illness HPI narrative: 72-year-old male coming in today at the request of his brother for weakness. Patient has been living at home has not been doing well. He states that he spends most of his day lying in bed. He states that he can not get up and use the bathroom but he feels very tired after doing so. He denies feeling short of breath, he denies any chest pain. He states that he eats very little. States that he had 1 meal from [employer] yesterday but can not tell me exactly what that was. Has not really been drinking many fluids. He denies abdominal discomfort, diarrhea or constipation. He denies any urinary symptoms. He denies any fevers or chills. He is not coughing. He denies congestion. Related Data Home Medications Medication Instructions Recorded Confirmed aspirin 81 mg tablet,delayed 81 mg PO DAILY 10/22/21 03/01/23 release (Adult Aspirin Regimen) azathioprine 50 mg tablet 150 mg PO DAILY 10/22/21 03/01/23 tacrolimus 0.5 mg capsule, 2 mg PO BID 05/17/22 03/01/23 immediate-release cholecalciferol (vitamin D3) 25 4,000 unit PO DAILY 10/26/22 03/01/23 mcg (1,000 unit) capsule ferrous sulfate 325 mg (65 mg 325 mg PO DAILY 10/26/22 03/01/23 iron) tablet tamsulosin 0.4 mg capsule 0.4 mg PO DAILY 10/26/22 03/01/23 clopidogrel 75 mg tablet 75 mg PO DAILY 11/01/22 03/01/23 doxazosin 4 mg tablet 4 mg PO HS 11/26/22 03/01/23 omeprazole 40 mg capsule,delayed 40 mg PO DAILY 01/22/23 03/01/23 release Previous Rx's Medication Instructions Recorded gabapentin 600 mg tablet 600 mg PO BID #180 tabs 11/09/21 fentanyl 25 mcg/hr transdermal 1 patch transdermal Q48H #15 ea 11/19/22 patch acetaminophen 325 mg tablet 650 mg (2 x 325 mg) PO Q6H PRN 30 12/03/22 days #50 tabs atorvastatin 20 mg tablet 20 mg PO HS #90 tabs 01/21/23 citalopram 40 mg tablet (Celexa) 40 mg PO DAILY #90 tabs 02/18/23 Allergies Allergy/AdvReac Type Severity Reaction Status Date / Time phytonadione (vitamin K1) Allergy Intermediate Unknown Verified 03/01/23 11:00 Review of Systems Status of ROS: Reports: 10 or more systems reviewed and unremarkable except as noted in History and below [facility] Medical History Chronic right hip pain ?M25.551 - Pain in right hip (ICD-10) ?G89.29 - Other chronic pain (ICD-10) Penile ulcer ?N48.5 - Ulcer of penis (ICD-10) Type 2 diabetes mellitus treated with insulin ?E11.9 - Type 2 diabetes mellitus without complications (ICD-10) ?Z79.4 - [facility] (current) use of insulin (ICD-10) Fall at home ?W19.XXXA - Unspecified fall, initial encounter (ICD-10) ?Y92.009 - Unspecified place in unspecified non-institutional (private) residence as the place of occurrence of the external cause (ICD-10) Elevated uric acid in blood ?E79.0 - Hyperuricemia without signs of inflammatory arthritis and tophaceous disease (ICD-10) Weakness ?R53.1 - Weakness (ICD-10) Elevated bilirubin ?R17 - Unspecified jaundice (ICD-10) Metabolic encephalopathy ?G93.41 - Metabolic encephalopathy (ICD-10) Low back pain ?M54.50 - Low back pain, unspecified (ICD-10) Vitamin D deficiency ?E55.9 - Vitamin D deficiency, unspecified (ICD-10) History of transcatheter aortic valve replacement (TAVR) ?Z95.2 - Presence of prosthetic heart valve (ICD-10) BPH (benign prostatic hyperplasia) ?N40.0 - Benign prostatic hyperplasia without lower urinary tract symptoms (ICD-10) History of non-anemic folic acid deficiency ?Z86.39 - Personal history of other endocrine, nutritional and metabolic disease (ICD-10) History of colonic polyps (05/10/13) ?Z86.010 - Personal history of colonic polyps (ICD-10) Folic acid deficiency (01/22/16) ?E53.8 - Deficiency of other specified B group vitamins (ICD-10) Erectile dysfunction ?N52.9 - Male erectile dysfunction, unspecified (ICD-10) Current moderate episode of major depressive disorder without prior episode (01/14/17) ?F32.1 - Major depressive disorder, single episode, moderate (ICD-10) Controlled substance agreement signed (04/19/18) ?Z79.899 - Other residential (current) drug therapy (ICD-10) Pancytopenia ?D61.818 - Other pancytopenia (ICD-10) Pain syndrome, chronic ?G89.4 - Chronic pain syndrome (ICD-10) Chronic kidney disease (CKD) ?N18.9 - Chronic kidney disease, unspecified (ICD-10) History of ETOH abuse ?F10.11 - Alcohol abuse, in remission (ICD-10) CHF (congestive heart failure) ?I50.9 - Heart failure, unspecified (ICD-10) Mitral regurgitation ?I34.0 - Nonrheumatic mitral (valve) insufficiency (ICD-10) Diabetic neuropathy ?E11.40 - Type 2 diabetes mellitus with diabetic neuropathy, unspecified (ICD-10) GERD (gastroesophageal reflux disease) ?K21.9 - Gastro-esophageal reflux disease without esophagitis (ICD-10) Hyperlipidemia ?E78.5 - Hyperlipidemia, unspecified (ICD-10) HTN (hypertension) ?I10 - Essential (primary) hypertension (ICD-10) Diverticulosis ?K57.90 - Diverticulosis of intestine, part unspecified, without perforation or abscess without bleeding (ICD-10) Surgical History Liver transplant recipient ?Z94.4 - Liver transplant status (ICD-10) History of coronary artery stent placement ?Z95.5 - Presence of coronary angioplasty implant and graft (ICD-10) S/P TAVR (transcatheter aortic valve replacement) ?Z95.2 - Presence of prosthetic heart valve (ICD-10) History of liver transplant (07/10/16) ?Z94.4 - Liver transplant status (ICD-10) History of decompression of ulnar nerve (1979) ?Z98.890 - Other specified postprocedural states (ICD-10) History of cataract extraction (2017) ?Z98.49 - Cataract extraction status, unspecified eye (ICD-10) 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 He lives by himself. He functions independently. He is retired. Remote history of smoking having quit about 20 years ago after a 10 pack year history. 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 Last drank in 2016 What is your current living situation?: I presently have a place to live Problems where you live: no known problems Problems where you live details: NA In the past 12 months, utilities in danger of being shut off: no In past 12 months, lack of transportation kept you from medical appts, meetings, work, or getting things needed for daily living: no In the past 12 mos, have been you worried that your food would run out before you had money to buy more?: never true In the past 12 mos, the food you bought just didn't last and you didn't have money to buy more?: never true Highest level of school completed/degree received: Associate degree: academic program Smoking Status: Never smoker Do you use any of these nicotine containing products: None Second hand tobacco smoke exposure: No How often do you have a drink containing alcohol: never How often do you have six or more drinks on one occasion: Never AUDIT-C Alcohol total score: 0 Non-prescribed substance use: denies use Caffeine: No How often does anyone, including family, friends and others, physically hurt you: never How often does anyone, including family, friends and others, insult or talk down to you: never How often does anyone, including family, friends and others, threaten you with harm: never How often does anyone, including family, friends and others, scream or curse at you: never Little interest or pleasure in doing things: more than half the days Feeling down, depressed, or hopeless: more than half the days service: No Exam Narrative: Exam Narrative: Well-nourished well-developed patient in no acute distress. Alert and oriented. Answers questions appropriately. Mood and affect are appropriate. Thoughts are goal oriented and rational. No tangential or magical thinking noted. Patient speaks in full sentences without needing to catch his breath. HEENT: Normocephalic atraumatic. Pupils are equally round reactive to light. Extraocular muscles are intact. Conjunctivae are moist without any icterus noted. Slightly dry mucous membranes. Posterior pharynx is normal. Neck is soft without any lymphadenopathy or thyromegaly. No masses are appreciated. Cardiovascular: Tachycardic, regular. Lungs: Clear to auscultation bilaterally no wheezes rhonchi or rales are appreciated. Patient takes deep breaths without any discomfort. Abdomen: Soft and nontender nondistended with normal bowel sounds. Extremities: Bilateral lower extremities show trace edema. Normal DP and PT pulses. Skin: Well perfused without any obvious rashes. Const: Vital Signs, click to edit/add: Vital Signs - 24 hr 03/01/23 12:38 Temperature 97.3 F L Pulse Rate [Right Pulse Oximeter] 117 H Respiratory Rate 20 Blood Pressure [Le ft Upper Arm] 136/81 Pulse Oximetry 100 Oxygen Delivery Me thod Room Air Course Course ED Course: EKG, read by me, shows sinus tachycardia with a pulse of 110. Lab work showed an elevated troponin, slightly elevated CRP reid an elevated creatinine. IV was difficult to establish but was eventually established and patient was started on normal saline. Chest x-ray, read by me, does not show any acute pathology. Repeat troponin pending at time of dictation. Discussed patient with hospitalist, patient will be admitted for further management. Vital Signs Vital signs: Initial Vital Signs Temperature 97.3 F L 03/01/23 12:38 Temperature Source Temporal Artery Scan 03/01/23 12:38 Pulse Rate 117 H 03/01/23 12:38 Respiratory Rate 20 03/01/23 12:38 Blood Pressure 136/81 03/01/23 12:38 Blood Pressure Mean 99 03/01/23 12:38 Blood Pressure Position Sitting 03/01/23 12:38 Pulse Oximetry 100 03/01/23 12:38 Oxygen Delivery Method Room Air 03/01/23 12:38 Vital Signs Temperature 97.3 F L 03/01/23 12:38 Pulse Rate 117 H 03/01/23 12:38 Respiratory Rate 20 03/01/23 12:38 Blood Pressure 136/81 03/01/23 12:38 Pulse Oximetry 100 03/01/23 12:38 Oxygen Delivery Method Room Air 03/01/23 12:38 Temperature 97.3 F L 03/01/23 12:38 Pulse Rate 117 H 03/01/23 12:38 Respiratory Rate 20 03/01/23 12:38 Blood Pressure 136/81 03/01/23 12:38 Pulse Oximetry 100 03/01/23 12:38 Oxygen Delivery Method Room Air 03/01/23 12:38 Medications Administered Medications: Discontinued Medications Generic Name Dose Route Start Last Admin Trade Name Freq PRN Reason Stop Dose Admin Sodium Chloride 500 mls @ 500 mls/hr 03/01/23 13:01 03/01/23 14:33 0.9 % Sodium Chloride 500 Ml IV 03/01/23 14:00 500 mls/hr .Q1H ONE Administration Medical Decision Making MDM Narrative Medical decision making narrative: 72-year-old male with failure to thrive, acute dehydration with elevated creatinine and troponin. Given the fact that the patient is not having any chest pain or shortness of breath I do not think that his elevated troponin represents an acute coronary syndrome. At this time patient will be admitted for further management. Medical Records Medical records reviewed: Yes I reviewed the patient's medical records Lab Data Lab results reviewed: Yes I reviewed the patient's lab results Labs: Lab Results 03/01/23 03/01/23 Range/Units 13:25 14:30 WBC 5.67 (4.50-11.00) K/uL RBC 3.93 L (4.30-5.90) m/uL Hgb 12.5 L (13.5-17.5) gm/dL Hct 36.9 L (37.0-53.0) % MCV 94 (80-100) fL MCH 32 (26-34) pg MCHC 34 (32-36) gm/dL RDW Coeff of [place] 15.5 (11.5-15.5) % Plt Count 195 (140-440) K/uL Neut % (Auto) 73.9 H (42.0-72.0) % Lymph % (Auto) 14.6 L (20-44) % [place] % (Auto) 9.2 (0.0-11.0) % Eos % (Auto) 0.7 (0.0-7.0) % Baso % (Auto) 0.2 (0.0-3.0) % Neut # (Auto) 4.20 (1.7-7.0) K/uL Lymph # (Auto) 0.80 L (0.90-2.90) K/uL [place] # (Auto) 0.50 (0.00-0.90) K/UL Eos # (Auto) 0.04 (0.00-0.50) K/uL Baso # (Auto) 0.01 (0.00-0.30) K/uL Abs Immat Gran (auto) 0.08 (0.00-0.30) K/uL Imm/Tot Granulo (auto) 1.4 % Sodium 131 L (135-149) mmol/L Potassium 4.0 (3.6-5.1) mmol/L Chloride 105 (96-114) mmol/L Carbon Dioxide 12 L (20-32) mmol/L Anion Gap 14 (7-15) mEq/L BUN 24 (7-30) mg/dL Creatinine 1.8 H (0.5-1.5) mg/dL Estimated Creat Clear 40.67 Estimated GFR 40 ml/min Glucose 175 H (60-115) mg/dL Lactate 0.9 (0.5-1.9) mmol/L Calcium 9.3 (8.4-10.6) mg/dL Magnesium 1.3 L (1.5-2.6) mg/dL Total Bilirubin 1.1 (0.1-1.5) mg/dL Direct Bilirubin 0.3 (0.0-0.5) mg/dL AST 22 (12-35) U/L ALT 9 (4-50) U/L Alkaline Phosphatase 80 (40-150) U/L Troponin I 0.16 H* (0.01-0.04) ng/mL C-Reactive Protein 4.0 H (0.5-1.0) mg/dL NT-Pro-B Natriuret Pep 580 pg/mL Total Protein 7.6 (6.0-8.3) g/dL Albumin 4.1 (3.3-5.0) g/dL POC Troponin I 0.11 H (0.01-0.04) ng/ml ECG Data Attestation: I personally reviewed and interpreted this ECG as follows: Discharge Plan Discharge Clinical Impression: Acute dehydration, Adult failure to thrive Patient Disposition: Admitted As Observation Condition: Stable
--- NOTE | 2023-03-01 14:29 | CRLHL7_ITS ---
For Patients: As a result of the Century Cures Act, medical imaging exams and procedure reports are released immediately into your electronic medical record. You may view this report before your referring provider. If you have questions, please contact your health care provider. Indication: Shortness of breath Technique: Chest 2 views Comparison: Chest x-ray 01/23/2023 Findings/Impression: Cardiovascular and mediastinum: Normal heart size with atherosclerotic calcification. Status post aortic valve replacement and coronary artery stent. Lungs and pleural spaces: Linear density overlying the left lung apex, favor artifact. No acute consolidation or effusion. Bones and soft tissues: No significant findings. Dictated by Eliud Miranda MD @ 03/01/2023 3:05:44 PM (Electronically Signed)
[2023-03-01] MEDS: 0.9 % SODIUM CHLORIDE 500 ML 500 ML IV (14:33)
--- NOTE | 2023-03-01 14:40 | ED.NURSE ---
Bed request sent. [facility]
[2023-03-01 14:50] VITALS: BP 157/89; PULSE 97; RESP 14; O2SAT 99
[2023-03-01 14:50] LABS: Troponin, Point-of-Care* 0.11 ng/ml (0.01-0.04)
--- NOTE | 2023-03-01 15:08 | ED.NURSE ---
Handoff report given to BENTLEY Stevenson. Graham updated that pt unable to provide UA at this time. Mag not yet received from pharm. Pharmacy updated that pt going to med surg, Graham updated mag not yet started. Trop I to lab. Pt to med surg with personal walker and all belongings (clothing) in belongings bag.
--- NOTE | 2023-03-01 15:11 | ED.NURSE ---
Per pt request, brothguerita Rodriguez ([phone]) called and given update.
[2023-03-01 16:00] VITALS: BP 132/73; PULSE 92; RESP 20; TEMP 36; O2SAT 99; BMI 28.5
[2023-03-01 16:08] LABS: Troponin I* 0.17 ng/mL (0.01-0.04)
--- NOTE | 2023-03-01 16:36 | PM.IMHP1 ---
Hospitalist- H&P: HPI History of Present Illness Date Seen: 03/01/23 Chief complaint: low blood pressure Narrative: Bari Mora is a 72 year old male with multiple chronic medical problems admitted from clinic and the emergency department with weakness. Patient is on his 5th admission in 5 months. Commonly these are associated with weakness and inability to care for himself and also exacerbation of his chronic medical problems. Today he tells me he is not sure why he is here other than that his brother brought him to the clinic today because his brother was concerned that he was too weak and spending all day in bed. Patient does not think that these are significant problems. He has history of kidney and liver transplant, coronary disease with coronary stenting, TAVR, hypertension, depression, chronic pain on chronic opioid therapy, diabetes mellitus. He tells me that he does spend quite a bit of time in bed but also is up ambulating. He will go to the grocery store and walk with a walker. He denies any recent symptoms of illness. Reports that he has had no fever, cold, cough, chest pain, shortness of breath, nausea, vomiting, abdominal pain, constipation, blood in his stool, urinary problems. He has had recent diarrhea and has been taking a laxative for this. He tells me this is a chronic problem for him. He is not any lower extremity edema. He tells me he manages own medications. He does not know the names of all as medications. He does use a pillbox to set up his medications. Review of Systems Narrative: Patient reports feeling fine. [facility] Medical History (Updated 03/01/23 @ 17:17 by Juan Manuel Brown MD) Depression ?F32.A - Depression, unspecified (ICD-10) Weight loss ?R63.4 - Abnormal weight loss (ICD-10) Diarrhea ?R19.7 - Diarrhea, unspecified (ICD-10) Chronic right hip pain ?M25.551 - Pain in right hip (ICD-10) ?G89.29 - Other chronic pain (ICD-10) Penile ulcer ?N48.5 - Ulcer of penis (ICD-10) Type 2 diabetes mellitus treated with insulin ?E11.9 - Type 2 diabetes mellitus without complications (ICD-10) ?Z79.4 - FDC (current) use of insulin (ICD-10) Fall at home ?W19.XXXA - Unspecified fall, initial encounter (ICD-10) ?Y92.009 - Unspecified place in unspecified non-institutional (private) residence as the place of occurrence of the external cause (ICD-10) Elevated uric acid in blood ?E79.0 - Hyperuricemia without signs of inflammatory arthritis and tophaceous disease (ICD-10) Weakness ?R53.1 - Weakness (ICD-10) Elevated bilirubin ?R17 - Unspecified jaundice (ICD-10) Metabolic encephalopathy ?G93.41 - Metabolic encephalopathy (ICD-10) Low back pain ?M54.50 - Low back pain, unspecified (ICD-10) Vitamin D deficiency ?E55.9 - Vitamin D deficiency, unspecified (ICD-10) History of transcatheter aortic valve replacement (TAVR) ?Z95.2 - Presence of prosthetic heart valve (ICD-10) BPH (benign prostatic hyperplasia) ?N40.0 - Benign prostatic hyperplasia without lower urinary tract symptoms (ICD-10) History of non-anemic folic acid deficiency ?Z86.39 - Personal history of other endocrine, nutritional and metabolic disease (ICD-10) History of colonic polyps (05/10/13) ?Z86.010 - Personal history of colonic polyps (ICD-10) Folic acid deficiency (01/22/16) ?E53.8 - Deficiency of other specified B group vitamins (ICD-10) Erectile dysfunction ?N52.9 - Male erectile dysfunction, unspecified (ICD-10) Current moderate episode of major depressive disorder without prior episode (01/14/17) ?F32.1 - Major depressive disorder, single episode, moderate (ICD-10) Controlled substance agreement signed (04/19/18) ?Z79.899 - Other fpc (current) drug therapy (ICD-10) Pancytopenia ?D61.818 - Other pancytopenia (ICD-10) Pain syndrome, chronic ?G89.4 - Chronic pain syndrome (ICD-10) Chronic kidney disease (CKD) ?N18.9 - Chronic kidney disease, unspecified (ICD-10) History of ETOH abuse ?F10.11 - Alcohol abuse, in remission (ICD-10) CHF (congestive heart failure) ?I50.9 - Heart failure, unspecified (ICD-10) Mitral regurgitation ?I34.0 - Nonrheumatic mitral (valve) insufficiency (ICD-10) Diabetic neuropathy ?E11.40 - Type 2 diabetes mellitus with diabetic neuropathy, unspecified (ICD-10) GERD (gastroesophageal reflux disease) ?K21.9 - Gastro-esophageal reflux disease without esophagitis (ICD-10) Hyperlipidemia ?E78.5 - Hyperlipidemia, unspecified (ICD-10) HTN (hypertension) ?I10 - Essential (primary) hypertension (ICD-10) Diverticulosis ?K57.90 - Diverticulosis of intestine, part unspecified, without perforation or abscess without bleeding (ICD-10) Surgical History (Updated 03/01/23 @ 17:12 by Juan Manuel Brown MD) Liver transplant recipient ?Z94.4 - Liver transplant status (ICD-10) Kidney transplant recipient ?Z94.0 - Kidney transplant status (ICD-10) History of coronary artery stent placement ?Z95.5 - Presence of coronary angioplasty implant and graft (ICD-10) S/P TAVR (transcatheter aortic valve replacement) ?Z95.2 - Presence of prosthetic heart valve (ICD-10) History of liver transplant (07/10/16) ?Z94.4 - Liver transplant status (ICD-10) History of decompression of ulnar nerve (1979) ?Z98.890 - Other specified postprocedural states (ICD-10) History of cataract extraction (2017) ?Z98.49 - Cataract extraction status, unspecified eye (ICD-10) 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) ?Z96.643 - Presence of artificial hip joint, bilateral (ICD-10) History of hip replacement ?Z96.649 - Presence of unspecified artificial hip joint (ICD-10) Hx of hernia repair ?Z98.890 - Other specified postprocedural states (ICD-10) ?Z87.19 - Personal history of other diseases of the digestive system (ICD-10) Family History Father Diabetes Coronary artery disease Sister Diabetes Social History Narrative: He lives in [place]. He lives by himself. He functions independently. He is retired. Remote history of smoking having quit about 20 years ago after a 10 pack year history. 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 Last drank in 2016 What is your current living situation?: I presently have a place to live Problems where you live: no known problems Problems where you live details: NA In the past 12 months, utilities in danger of being shut off: no In past 12 months, lack of transportation kept you from medical appts, meetings, work, or getting things needed for daily living: no In the past 12 mos, have been you worried that your food would run out before you had money to buy more?: never true In the past 12 mos, the food you bought just didn't last and you didn't have money to buy more?: never true Highest level of school completed/degree received: Associate degree: academic program Smoking Status: Never smoker Do you use any of these nicotine containing products: None Second hand tobacco smoke exposure: No How often do you have a drink containing alcohol: never How often do you have six or more drinks on one occasion: Never AUDIT-C Alcohol total score: 0 Non-prescribed substance use: denies use Caffeine: No How often does anyone, including family, friends and others, physically hurt you: never How often does anyone, including family, friends and others, insult or talk down to you: never How often does anyone, including family, friends and others, threaten you with harm: never How often does anyone, including family, friends and others, scream or curse at you: never Little interest or pleasure in doing things: more than half the days Feeling down, depressed, or hopeless: more than half the days service: No Meds Home Medications and Allergies Home Medications Medication Instructions Recorded Confirmed Type aspirin 81 mg tablet,delayed 81 mg PO DAILY 10/22/21 03/01/23 History release (Adult Aspirin Regimen) tacrolimus 0.5 mg capsule, 2 mg PO BID 05/17/22 03/01/23 History immediate-release ferrous sulfate 325 mg (65 mg 325 mg PO DAILY 10/26/22 03/01/23 History iron) tablet tamsulosin 0.4 mg capsule 0.4 mg PO DAILY 10/26/22 03/01/23 History clopidogrel 75 mg tablet 75 mg PO DAILY 11/01/22 03/01/23 History omeprazole 40 mg capsule,delayed 40 mg PO DAILY 01/22/23 03/01/23 History release azathioprine 50 mg tablet 150 mg PO DAILY 03/01/23 03/01/23 History cholecalciferol (vitamin D3) .ROUTE 03/01/23 History diphenoxylate-atropine 2.5 2 tab PO TID PRN diarrhea 03/01/23 03/01/23 History mg-0.025 mg tablet doxazosin 4 mg tablet 4 mg PO HS 03/01/23 03/01/23 History furosemide 40 mg tablet 40 mg PO DAILY PRN 03/01/23 03/01/23 History sodium bicarbonate 650 mg tablet 1,300 mg PO BID 03/01/23 03/01/23 History Allergies Allergy/AdvReac Type Severity Reaction Status Date / Time phytonadione (vitamin K1) Allergy Intermediate Unknown Verified 03/01/23 11:00 Exam Narrative: Exam Narrative: He is alert and in no distress. He gives his own history. Mental status appears at baseline. Head is without trauma. Eyes are normal. Pupils are small but reactive. Extraocular movements are full. No facial asymmetry. Oropharynx with some dental loss but otherwise normal mucosa. Neck is supple without mass or adenopathy. Respirations are clear to auscultation. Cardiovascular: S1, S2, regular rate and rhythm. No murmur gallop or rub. Abdomen: Bowel sounds active. Abdomen is soft. Bowel sounds are present. He has minimal diffuse tenderness with deep palpation. No pain aside from palpation. No peritonitis. External genitalia normal. Extremities with no significant edema. Diminished pedal pulses. Full strength in all 4 extremities bilaterally. Const: Vital Signs, click to edit/add: Vital Signs - 24 hr 03/01/23 12:38 03/01/23 13:01 03/01/23 14:50 Temperature 97.3 F L Pulse Rate [Right Pulse Oximeter] 117 H 97 Respiratory Rate 20 14 Blood Pressure [Le ft Upper Arm] 136/81 157/89 H Pulse Oximetry 100 100 99 Oxygen Delivery Me thod Room Air Room Air Documenting provider has reviewed patient's vital signs: yes Hospitalist - H&P: Result Labs Labs: Short CBC 03/01/23 Range/Units 13:25 WBC 5.67 (4.50-11.00) K/uL Hgb 12.5 L (13.5-17.5) gm/dL Hct 36.9 L (37.0-53.0) % Plt Count 195 (140-440) K/uL BMP 03/01/23 13:25 Sodium 131 L Potassium 4.0 Chloride 105 Carbon Dioxide 12 L BUN 24 Creatinine 1.8 H Glucose 175 H Calcium 9.3 Cardiac Enzymes 03/01/23 03/01/23 Range/Units 13:25 14:30 Troponin I 0.16 H* 0.17 H* (0.01-0.04) ng/mL Liver Function 03/01/23 Range/Units 13:25 Total Bilirubin 1.1 (0.1-1.5) mg/dL Direct Bilirubin 0.3 (0.0-0.5) mg/dL AST 22 (12-35) U/L ALT 9 (4-50) U/L Alkaline Phosphatase 80 (40-150) U/L Albumin 4.1 (3.3-5.0) g/dL ECG Attestation: I personally reviewed and interpreted this ECG as follows: (Sinus tachycardia rate of 110. Otherwise unremarkable) ECG interpretation date: 03/01/23 Imaging Chest x-ray: Attestation: I have reviewed the pertinent imaging results. (No acute abnormality) Assessment and Plan Assessment and plan (1) Adult failure to thrive: Status: Acute (2) Acute dehydration: Problem comment: Cautious fluid resuscitation Status: Acute (3) Recurrent Clostridioides difficile diarrhea: Problem comment: History of C diff infection. Treated in November 2022. Now with diarrhea. Status: Acute (4) Diarrhea: Problem comment: Acute on chronic. Check for C diff. Stool culture. Status: Acute (5) Weakness: Problem comment: Acute on chronic. Patient does not want to be in a custodial but struggling to remain independent. Very sedentary. Therapy to assess. Status: Acute (6) Physical debility: Problem comment: Chronic. Has not been able to stay independent at home for more than a few weeks. Status: Acute (7) Declining functional status: Problem comment: - Unable to transfer and ambulate without assistance on 01/21/2023 - this is a recurrent problem. - s/p multiple prior hospitalizations for management of acute medical problems over the past several months, followed by short term SNF transitional care until he demands to return to his home, then returns home for short period of time before returning to hospital with acute medical problems requiring inpatient hospitalization for stabilization, and the cycle repeats. - PT, OT consulted - SS consult for discharge planning - I again reviewed this dangerous pattern of hospitalization/TCU in SNF/home briefly/re-hospitalization pattern with patient. He has poor insight and/or acceptance of this downward spiraling pattern of his health. Voiced my opinion to him once again that if he is to succeed in safely maintaining his health status for longer periods of time, given his declining physical health and decreased ability to care for himself independently in his home, that he needs a level of care comparable to what he receives when he is in a SNF. - MOCA 22 on 01/24, decreased from 25 in October 2022 - will need ongoing support from PCP - discharged to home with home health services - medication management, therapy Status: Acute (8) Hypomagnesemia: Problem comment: Chronic recurrent problem. Has previously been on supplementation but not currently. IV then oral supplementation once diarrhea improves Status: Resolved (9) Kidney transplant recipient: Problem comment: continue antirejection meds Status: Acute (10) Liver transplant recipient: Problem comment: Continue anti rejection drugs Status: Acute (11) Weight loss: Problem comment: Weight is down 20 kg in 4 months. Likely multifactorial. Status: Acute (12) Depression: Problem comment: Denies depressive symptoms. Appears apathetic about his circumstances. Status: Acute Plan Patient is admitted to the hospital for evaluation and treatment of acute kidney injury, dehydration, metabolic acidosis, elevated troponin, weakness. Total time spent today is 80 minutes, 50 minutes in coordination of care discussing with patient other providers ongoing evaluation management.
[2023-03-01] MEDS: LACTATED RINGERS 1000 ML 1,000 ML 500 ML IV (16:57)
[2023-03-01] MEDS: MAGNESIUM IV 2 GM/50 ML PIGGYBACK IVPB (18:34)
[2023-03-01] MEDS: fentaNYL 25 MCG/HR PATCH 1 PATCH TRANSDERMA (18:42)
[2023-03-01] MEDS: SODIUM BICARBONATE 650 MG TABLET PO (18:43)
[2023-03-01 19:00] VITALS: BP 143/66; PULSE 88; RESP 20; TEMP 36.3; O2SAT 100
--- NOTE | 2023-03-01 19:30 | PC.NURSE ---
End of Shift: Patient is alert and orientated... 24 G in L hand.. Infused Bolus of LR now infusing magnesium... Complains of chronic pain in BLE 5/10 fentanyl patch given on L shoulder. Calls appropriately. Blood sugars... Has not voided since arrival... Bladder scan completed for 107cc. Ate 100% of dinner. Call light within reach. Mariluz FELIPE RN
[2023-03-01 20:01] LABS: Chloride* 103 mmol/L (96-114); Potassium* 4.4 mmol/L (3.6-5.1); Sodium* 131 mmol/L (135-149)
[2023-03-01 20:04] LABS: Anion Gap 6 mEq/L (7-15); Blood Urea Nitrogen* 25 mg/dL (7-30); Calcium* 8.8 mg/dL (8.4-10.6); Carbon Dioxide* 22 mmol/L (20-32); Creatinine* 1.7 mg/dL (0.5-1.5); Est. Creatinine Clearance* 41.75; Estimated Glomerular Filt Rate 43 ml/min; Glucose* 195 mg/dL (60-115)
[2023-03-01] MEDS: ATORVASTATIN 10 MG TABLET 20 MG PO (20:44)
[2023-03-01] MEDS: GABAPENTIN 600 MG TABLET PO (20:44)
[2023-03-01] MEDS: ENOXAPARIN 40 MG/0.4 ML INJ SUBCUT (20:44)
[2023-03-01] MEDS: INSULIN ASPART 100 UNIT/ML SUBCUT (20:44)
[2023-03-01] MEDS: TACROLIMUS 0.5 MG CAPSULE 2 MG PO (20:46)
[2023-03-01 22:43] LABS: Appearance Urine Clear (Clear); Bilirubin Urine 1+ (Negative); Blood Urine Trace-intact (Negative); Color Urine Yellow (Yellow); Glucose Urine Negative (Negative); Ketones Urine 2+ (Negative); Leukocyte Esterase Urine 1+ (Negative); Nitrite Urine Positive (Negative); Protein Urine 1+ (Negative); Specific Gravity Urine 1.025 (1.000-1.030); Urobilinogen Urine 0.2 (0.2-1.0); pH Urine 5.5 (5.0-8.5)
[2023-03-01 23:02] LABS: Bacteria Urine Moderate; Squamous Epithelial Cell Urine Moderate (None-Few)
[2023-03-01 23:03] LABS: Mucus Urine Few
[2023-03-01 23:15] VITALS: BP 119/70; PULSE 91; RESP 18; TEMP 36.3; O2SAT 96
[2023-03-01 23:48] LABS: CDIFFEPI 027 PRESUMPTIVE NEGATIVE (Negative)
[2023-03-01 23:57] LABS: C.Difficile POSITIVE (Negative)
--- NOTE | 2023-03-02 00:25 | PC.NURSE ---
Production Line Operator received phone call from lab at 0000 with positive C. difficile lab. Production Line Operator updated charge preparation technician and Aminata JOHNSTON was updated who will be giving further orders to treat. Pt also reported to have chronic hx of C. difficile infection. Pt placed on Enhanced precautions and SOURAV updated as well.
--- NOTE | 2023-03-02 00:40 | PC.NURSE ---
sound ranging crewmember updated Aminata JOHNSTON regarding pt's UA results.
[2023-03-02] MEDS: cefTRIAXone 1 GM in 0.9 % SODIUM CHLORIDE Mini-bag 100 ML IVPB (01:20)
[2023-03-02] MEDS: 0.9 % SODIUM CHLORIDE 250 ml IV (01:27)
[2023-03-02 03:45] VITALS: BP 116/74; PULSE 87; RESP 18; TEMP 36.3; O2SAT 94
[2023-03-02] MEDS: OMEPRAZOLE 20 MG CAPSULE DR 40 MG PO (06:20)
--- NOTE | 2023-03-02 06:27 | PC.NURSE ---
Shift note [id number]: Pt updated that he is now being treated for C. difficile infection and UTI. Pt has been repositioning independently in bed. He is noted to be alert & oriented x 4 and able to make needs known. Pt has been denying pain when asked with Fentanyl patch in place to L outer arm. He has been given first dose of IV ABX Ceftriaxone to treat UTI. Pt noted to be more incontinent of bladder than continent though did void on the toilet as well. Pt also had a continent soft bowel movement this morning. He needs encouragement to toilet and refuses gait belt for transferring/ambulation despite staff encouragement and education. Pt able to transfer with assist of 1 using walker.?
[2023-03-02 06:29] LABS: Basophils Percent Auto 0.3 % (0.0-3.0); Eosinophils Percent Auto 2.8 % (0.0-7.0); Hematocrit 35.3 % (37.0-53.0); Hemoglobin* 11.7 gm/dL (13.5-17.5); Immature Granulocytes Pct Auto 0.3 %; Lymphocytes Percent Auto 32.3 % (20-44); Mean Corpuscular HGB Conc 33 gm/dL (32-36); Mean Corpuscular Hemoglobin 32 pg (26-34); Mean Corpuscular Volume 96 fL (80-100); Monocytes Percent Auto 9.4 % (0.0-11.0); Neutrophils Percent Auto 54.9 % (42.0-72.0); Platelet Count* 190 K/uL (140-440); RDW Coefficient of Variation % 15.4 % (11.5-15.5); Red Blood Count 3.69 m/uL (4.30-5.90); White Blood Count* 3.93 K/uL (4.50-11.00)
[2023-03-02 06:32] LABS: Slide Review Reflex No
[2023-03-02 06:48] LABS: Chloride* 106 mmol/L (96-114); Sodium* 130 mmol/L (135-149)
[2023-03-02 06:49] LABS: Potassium* 3.8 mmol/L (3.6-5.1)
[2023-03-02 06:51] LABS: Creatinine* 1.5 mg/dL (0.5-1.5); Est. Creatinine Clearance* 47.31; Estimated Glomerular Filt Rate 50 ml/min
[2023-03-02 06:52] LABS: Anion Gap 5 mEq/L (7-15); Blood Urea Nitrogen* 25 mg/dL (7-30); Carbon Dioxide* 19 mmol/L (20-32); Glucose* 123 mg/dL (60-115); Phosphorus* 3.1 mg/dL (2.5-4.5)
[2023-03-02 06:53] LABS: Calcium* 8.8 mg/dL (8.4-10.6); Magnesium* 1.9 mg/dL (1.5-2.6)
[2023-03-02 06:55] LABS: C Reactive Protein* 3.2 mg/dL (0.5-1.0)
[2023-03-02 07:00] VITALS: BP 116/68; PULSE 90; RESP 16; TEMP 36.6; O2SAT 99
[2023-03-02 07:06] LABS: Troponin I* 0.17 ng/mL (0.01-0.04)
[2023-03-02] MEDS: azaTHIOprine 50 MG TABLET 150 MG PO (08:14)
[2023-03-02] MEDS: CITALOPRAM HYDROBROMIDE 20 MG TABLET 40 MG PO (08:14)
[2023-03-02] MEDS: FERROUS SULFATE 325 MG TABLET PO (08:14)
[2023-03-02] MEDS: ASPIRIN 81 MG TABLET EC PO (08:14)
[2023-03-02] MEDS: TACROLIMUS 0.5 MG CAPSULE 2 MG PO ×2 (08:15→20:24)
[2023-03-02] MEDS: SODIUM BICARBONATE 650 MG TABLET PO ×3 (08:15→16:58)
[2023-03-02] MEDS: CLOPIDOGREL 75 MG TABLET PO (08:16)
[2023-03-02] MEDS: SODIUM CHLORIDE 0.9 % (FLUSH) 10 ML SYRINGE 5 ML IVF (08:16)
[2023-03-02] MEDS: TAMSULOSIN HCL 0.4 MG CAPSULE PO (08:16)
[2023-03-02] MEDS: VANCOMYCIN 125 MG CAPSULE PO ×4 (09:37→20:23)
[2023-03-02] MEDS: GABAPENTIN 600 MG TABLET PO ×2 (09:37→20:23)
[2023-03-02 10:59] VITALS: BP 103/68; PULSE 100; RESP 16; TEMP 36.1; O2SAT 99
[2023-03-02 11:10] LABS: Troponin I* 0.15 ng/mL (0.01-0.04)
--- NOTE | 2023-03-02 12:27 | PM.IMPN1 ---
Progress Note: A&P Assessment and plan (1) Recurrent Clostridioides difficile diarrhea: Problem details: - This is the 4th documented C diff infection in the past 18 months. Last treated in November 2022. - Will need long vanco taper over weeks. - Start probiotic. - Gave patient instructions on cleaning house with bleach. Status: Acute (2) Acute dehydration: Problem details: caused ROSANA - both improving now. Status: Acute (3) Elevated troponin level: Problem details: Troponin elevated from baseline. No chest pain. No EKG changes. Suspect demand ischemia from dehydration. Troponin has peaked. Better hydrated today. Monitor for symptoms. Had ECHO in 10/2022. Status: Resolved (4) Weakness: Problem details: Acute on chronic. Patient does not want to be in a jail but struggling to remain independent. Very sedentary. Therapy to assess. Status: Acute (5) Weight loss: Problem details: - Weight is down 20 kg in 4 months. Likely multifactorial. - Nutrition consult. Status: Acute (6) Adult failure to thrive: Status: Acute (7) Depression: Problem details: Denies depressive symptoms. Appears apathetic about his circumstances. Continue citalopram Status: Chronic (8) Anemia: Problem details: Chronic, stable. Status: Chronic (9) Liver transplant recipient: Problem details: Continue anti rejection drugs Status: Chronic (10) Kidney transplant recipient: Problem details: continue antirejection meds Status: Chronic (11) Physical debility: Problem details: Chronic. Has not been able to stay independent at home for more than a few weeks. Continue PT and OT, will need home care PT/OT Status: Chronic Subjective Time Seen by Provider: 12:00 Date Seen: 03/02/23 Interval history: Lito feels okay. He complains of feeling tired, denies pain, CP or SOB. He asked how he keeps getting Cdiff. We discussed hand washing, nutrition and cleaning his house with bleach - he says they have not done this. Exam Narrative: Exam Narrative: General: No acute distress. Awake, alert, oriented x3. No pallor. No jaundice. [place], sallow face. Slow mentation. Oropharynx: Clear. Mucous membranes moist. Cardiovascular: Regular rate and rhythm. No murmurs, gallops, or rubs. Respiratory: Clear to auscultation bilaterally. No wheezes or crackles. Abdomen: Bowel sounds present. Soft, nondistended, nontender. Extremities: No pedal edema. Const: Vital Signs, click to edit/add: Vital Signs - 24 hr 03/01/23 12:38 03/01/23 13:01 03/01/23 14:50 Temperature 97.3 F L Pulse Rate [Right Pulse Oximeter] 117 H 97 Respiratory Rate 20 14 Blood Pressure [Le ft Upper Arm] 136/81 157/89 H Blood Pressure [Ri ght Arm] Pulse Oximetry 100 100 99 Oxygen Delivery Me thod Room Air Room Air 03/01/23 16:00 03/01/23 19:00 03/01/23 23:15 Temperature 96.8 F L 97.3 F L 97.3 F L Pulse Rate [Right Pulse Oximeter] 92 88 91 Respiratory Rate 20 20 18 Blood Pressure [Le ft Upper Arm] Blood Pressure [Ri ght Arm] 132/73 143/66 H 119/70 Pulse Oximetry 99 100 96 Oxygen Delivery Me thod Room Air Room Air Room Air 03/02/23 03:45 03/02/23 07:00 03/02/23 10:59 Temperature 97.3 F L 97.8 F 97.0 F L Pulse Rate [Right Pulse Oximeter] 87 90 100 Respiratory Rate 18 16 16 Blood Pressure [Le ft Upper Arm] Blood Pressure [Ri ght Arm] 116/74 116/68 103/68 Pulse Oximetry 94 99 99 Oxygen Delivery Me thod Room Air Room Air Room Air Labs Labs: Laboratory Results - last 24 hr 03/01/23 03/01/23 03/01/23 13:25 14:30 19:00 WBC 5.67 RBC 3.93 L Hgb 12.5 L Hct 36.9 L MCV 94 MCH 32 MCHC 34 RDW Coeff of [place] 15.5 Plt Count 195 Neut % (Auto) 73.9 H Lymph % (Auto) 14.6 L [place] % (Auto) 9.2 Eos % (Auto) 0.7 Baso % (Auto) 0.2 Neut # (Auto) 4.20 Lymph # (Auto) 0.80 L [place] # (Auto) 0.50 Eos # (Auto) 0.04 Baso # (Auto) 0.01 Abs Immat Gran (auto) 0.08 Imm/Tot Granulo (auto) 1.4 Sodium 131 L 131 L Potassium 4.0 4.4 Chloride 105 103 Carbon Dioxide 12 L 22 Anion Gap 14 6 L BUN 24 25 Creatinine 1.8 H 1.7 H Estimated Creat Clear 40.67 41.75 Estimated GFR 40 43 Glucose 175 H 195 H Lactate 0.9 Calcium 9.3 8.8 Phosphorus Magnesium 1.3 L Total Bilirubin 1.1 Direct Bilirubin 0.3 AST 22 ALT 9 Alkaline Phosphatase 80 Troponin I 0.16 H* 0.17 H* C-Reactive Protein 4.0 H NT-Pro-B Natriuret Pep 580 Total Protein 7.6 Albumin 4.1 Urine Color Urine Appearance Urine pH Ur Specific [place] Urine Protein Urine Glucose (UA) Urine Ketones Urine Blood Urine Nitrite Urine Bilirubin Urine Urobilinogen Ur Leukocyte Esterase Urine RBC Urine WBC Ur Squamous Epith Cells Urine Bacteria Urine Mucus Stl C. diff Tox B Gene Stl C. diff 027-NAP1-BI POC Troponin I 0.11 H 03/01/23 03/02/23 03/02/23 22:30 05:49 09:25 WBC 3.93 L RBC 3.69 L Hgb 11.7 L Hct 35.3 L MCV 96 MCH 32 MCHC 33 RDW Coeff of [place] 15.4 Plt Count 190 Neut % (Auto) 54.9 Lymph % (Auto) 32.3 [place] % (Auto) 9.4 Eos % (Auto) 2.8 Baso % (Auto) 0.3 Neut # (Auto) 2.20 Lymph # (Auto) 1.30 [place] # (Auto) 0.40 Eos # (Auto) 0.10 Baso # (Auto) 0.00 Abs Immat Gran (auto) 0.00 Imm/Tot Granulo (auto) 0.3 Sodium 130 L Potassium 3.8 Chloride 106 Carbon Dioxide 19 L Anion Gap 5 L BUN 25 Creatinine 1.5 Estimated Creat Clear 47.31 Estimated GFR 50 Glucose 123 H Lactate Calcium 8.8 Phosphorus 3.1 Magnesium 1.9 Total Bilirubin Direct Bilirubin AST ALT Alkaline Phosphatase Troponin I 0.17 H* 0.15 H* C-Reactive Protein 3.2 H NT-Pro-B Natriuret Pep Total Protein Albumin Urine Color Yellow Urine Appearance Clear Urine pH 5.5 Ur Specific [place] 1.025 Urine Protein 1+ A Urine Glucose (UA) Negative Urine Ketones 2+ A Urine Blood Trace-intact A Urine Nitrite Positive A Urine Bilirubin 1+ A Urine Urobilinogen 0.2 Ur Leukocyte Esterase 1+ A Urine RBC 2-5 A Urine WBC 10-25 A Ur Squamous Epith Cells Moderate A Urine Bacteria Moderate A Urine Mucus Few A Stl C. diff Tox B Gene POSITIVE A* Stl C. diff 027-[id number] PRESUMPTIVE NEGATIVE POC Troponin I
[2023-03-02 14:15] VITALS: BMI 28.3
[2023-03-02 15:00] VITALS: BP 106/70; PULSE 100; RESP 18; TEMP 36.6; O2SAT 99
[2023-03-02] MEDS: INSULIN ASPART 100 UNIT/ML SUBCUT ×2 (16:58→21:15)
--- NOTE | 2023-03-02 17:26 | PC.APCO ---
[facility] report made due to self neglect, report#[id number].
--- NOTE | 2023-03-02 17:26 | PC.SOCIAL ---
Discharge planning: Met with pt regarding d/c plan. Pt refuses to discuss any discharge plan other than returning home. He will not consider placement in a senior care. Pt has a walker and bath chair at home. Pt admits he has had home health care in the past but that he is not considered home bound so is not currently eligible for home care services as he is driving and leaving his home. To social work lecturer, pt stated his only concerns at home is that he can not manage his medications and that he is afraid he will fall in the shower, even though he has a shower chair. Pt states he would be willing to accept home care services if he qualifies for these. [facility] report completed #[id number]. Called Makenna Marquez at [facility]. Makenna states she plans to visit pt in the hospital tomorrow. asbestos abatement worker to follow up as needed.
[2023-03-02] MEDS: LACTATED RINGERS 500 ML 500 ML IV (17:50)
[2023-03-02] MEDS: LACTOBACILLUS ACIDOPHILUS 1 TABLET 2 TAB PO (17:50)
--- NOTE | 2023-03-02 18:26 | PC.NURSE ---
End of Shift: The patient is alert and orientated.. although very fatigued and drowsing throughout the day intermittently. This AM he initially refused to get up to the chair. I educated him on the importance of movement and getting well. Later in the AM he got up to the chair for breakfast.. slow and deliberate but tolerated well with SBA and four wheeled walker. No complaints of pain throughout the day, fentanyl patch remains in place on L deltoid. Initially also refused TEDS and SCDS, @ 1500 he allowed me to apply BLE TEDS, but still refused SCDS. Remains on Cdiff precautions, no BM today. No void today either, bladder scan was completed @1500 for 187cc. Poor PO intake throughout the day.. only about 400 total in I educated him about the importance of staying hydrated. Dr Brown was notified of no output since overnight.. LR bolus of 500 was given. Now continuos LR is ordered to run @ 125 hr. Ate 100% of breakfast and dinner. Call light within reach. BARBIE FELIPE RN
[2023-03-02 20:00] VITALS: BP 121/64; PULSE 98; RESP 18; TEMP 36.8; O2SAT 99
[2023-03-02] MEDS: ENOXAPARIN 40 MG/0.4 ML INJ SUBCUT (20:23)
[2023-03-02] MEDS: ATORVASTATIN 10 MG TABLET 20 MG PO (20:23)
[2023-03-02] MEDS: LACTATED RINGERS 1000 ML 1,000 ML 125 ML IV (22:57)
[2023-03-02 23:00] VITALS: BP 109/66; PULSE 93; RESP 16; TEMP 36.5; O2SAT 98
[2023-03-03] MEDS: cefTRIAXone 1 GM in 0.9 % SODIUM CHLORIDE Mini-bag 100 ML IVPB (00:54)
[2023-03-03] MEDS: LACTATED RINGERS 1000 ML 1,000 ML 125 ML IV ×2 (01:29→09:52)
[2023-03-03 04:15] VITALS: BP 118/70; PULSE 70; RESP 16; TEMP 36.5; O2SAT 97
[2023-03-03] MEDS: OMEPRAZOLE 20 MG CAPSULE DR 40 MG PO (06:04)
[2023-03-03 06:48] LABS: Basophils Percent Auto 0.5 % (0.0-3.0); Eosinophils Percent Auto 3.7 % (0.0-7.0); Hematocrit 29.7 % (37.0-53.0); Hemoglobin* 9.9 gm/dL (13.5-17.5); Immature Granulocytes Pct Auto 0.5 %; Lymphocytes Percent Auto 36.5 % (20-44); Mean Corpuscular HGB Conc 33 gm/dL (32-36); Mean Corpuscular Hemoglobin 32 pg (26-34); Mean Corpuscular Volume 96 fL (80-100); Neutrophils Percent Auto 48.8 % (42.0-72.0); Platelet Count* 137 K/uL (140-440); RDW Coefficient of Variation % 15.2 % (11.5-15.5); Red Blood Count 3.11 m/uL (4.30-5.90); Slide Review Reflex No; White Blood Count* 2.19 K/uL (4.50-11.00)
--- NOTE | 2023-03-03 06:57 | PC.NURSE ---
: A x 1 with walker. 2x Large incont loose stools. VSS.
[2023-03-03 07:17] LABS: Chloride* 108 mmol/L (96-114); Potassium* 3.8 mmol/L (3.6-5.1); Sodium* 137 mmol/L (135-149)
[2023-03-03 07:19] LABS: Creatinine* 1.4 mg/dL (0.5-1.5); Est. Creatinine Clearance* 50.69; Estimated Glomerular Filt Rate 54 ml/min
[2023-03-03 07:20] LABS: Anion Gap 7 mEq/L (7-15); Blood Urea Nitrogen* 25 mg/dL (7-30); Carbon Dioxide* 22 mmol/L (20-32)
[2023-03-03 07:21] LABS: Calcium* 8.4 mg/dL (8.4-10.6); Glucose* 179 mg/dL (60-115)
[2023-03-03 07:23] LABS: C Reactive Protein* 2.2 mg/dL (0.5-1.0)
[2023-03-03 07:36] LABS: Troponin I* 0.12 ng/mL (0.01-0.04)
[2023-03-03] MEDS: GABAPENTIN 600 MG TABLET PO ×2 (09:55→21:04)
[2023-03-03] MEDS: SODIUM CHLORIDE 0.9 % (FLUSH) 10 ML SYRINGE 5 ML IVF ×2 (09:55→21:09)
[2023-03-03] MEDS: FERROUS SULFATE 325 MG TABLET PO (09:56)
[2023-03-03] MEDS: VANCOMYCIN 125 MG CAPSULE PO ×4 (09:56→21:04)
[2023-03-03] MEDS: CLOPIDOGREL 75 MG TABLET PO (09:56)
[2023-03-03] MEDS: CITALOPRAM HYDROBROMIDE 20 MG TABLET 40 MG PO (09:56)
[2023-03-03] MEDS: TAMSULOSIN HCL 0.4 MG CAPSULE PO (09:56)
[2023-03-03] MEDS: azaTHIOprine 50 MG TABLET 150 MG PO (09:57)
[2023-03-03] MEDS: ASPIRIN 81 MG TABLET EC PO (09:57)
[2023-03-03] MEDS: SODIUM BICARBONATE 650 MG TABLET PO ×3 (09:58→17:21)
[2023-03-03] MEDS: TACROLIMUS 0.5 MG CAPSULE 2 MG PO ×2 (09:58→21:08)
[2023-03-03 10:00] VITALS: BP 140/76; PULSE 70; RESP 16; TEMP 36.7; O2SAT 98
[2023-03-03] MEDS: LACTOBACILLUS ACIDOPHILUS 1 TABLET 2 TAB PO ×3 (10:02→17:22)
[2023-03-03 11:00] VITALS: BP 110/54; PULSE 78; RESP 16; TEMP 36.5; O2SAT 98
[2023-03-03 11:11] VITALS: BMI 29.0
--- NOTE | 2023-03-03 11:31 | P.IMPN_ITS ---
Progress Note: A&P Assessment and plan (1) Recurrent Clostridioides difficile diarrhea: Problem details: - This is the 4th documented C diff infection in the past 18 months. Last treated in November 2022. - Will need long vanco taper over weeks. - Started probiotic. - Gave patient instructions on cleaning house with bleach. - Recommend he establish with GI at [facility] given transplant service is there and this is recurrent infection, will need referral at discharge Status: Acute (2) Acute dehydration: Problem details: caused ROSANA - both improving now. Status: Acute (3) Elevated troponin level: Problem details: Troponin elevated from baseline. No chest pain. No EKG changes. Suspect demand ischemia from dehydration. Troponin has peaked. Better hydrated today. Monitor for symptoms. Had ECHO in 10/2022. Status: Resolved (4) Weakness: Problem details: Acute on chronic. Patient does not want to be in a intermediate but struggling to remain independent. Very sedentary. Therapy raises concern about ongoing ability to care for self at home. Cog screens have been declining at each visit. Still has capacity at this time, but may benefit from higher level of care if patient agreeable. There is a plan for vulnerable adult assessment this afternoon Status: Acute (5) Weight loss: Problem details: - Weight is down 20 kg in 4 months. Likely multifactorial. - Nutrition consult. Status: Acute (6) Adult failure to thrive: Status: Acute (7) Depression: Problem details: Denies depressive symptoms. Appears apathetic about his circumstances. Continue citalopram Status: Chronic (8) Anemia: Problem details: Patient with chronic anemia, but 2g drop overnight from 11.7 to 9.9. Stools are green not black. Might be dilutional with IVF, but unclear. -Will discontinue IVF as he is taking adequate PO -If stable to improved tomorrow, may be able to discharge, but if dropping will need further workup and consider lower GIB Status: Chronic (9) Liver transplant recipient: Problem details: Continue anti rejection drugs Status: Chronic (10) Kidney transplant recipient: Problem details: continue antirejection meds -WBC dropped overnight, will watch Status: Chronic (11) Physical debility: Problem details: Chronic. Has not been able to stay independent at home for more than a few weeks. Continue PT and OT, will need home care PT/OT if patient qualifies as homebound. Status: Chronic Subjective Date Seen: 03/03/23 Interval history: Patient is seen and examined. He says he feels fine, denies abd pain, nausea, vomiting. He is tolerating a diet. Nursing notes still having loose stools. Notable lab changes overnight include stable/improving renal function, lower WBC and Hgb this am. EXAM: General: resting in chair after breakfast, no distress HEENT: NCAT Resp: Breathing is comfortable and unlabored CV: RRR, no m/g/r Abd: Soft, nontender, nondistended Neuro: Flat affect, but appropriate, no lateralizing deficits noted Exam Const: Vital Signs, click to edit/add: Vital Signs - 24 hr 03/02/23 15:00 03/02/23 20:00 03/02/23 23:00 Temperature 97.8 F 98.3 F Pulse Rate [Right Pulse Oximeter] 100 98 93 Respiratory Rate 18 18 16 Blood Pressure [Ri ght Arm] 106/70 121/64 Pulse Oximetry 99 99 Oxygen Delivery Me thod Room Air Room Air 03/02/23 23:00 03/03/23 04:15 03/03/23 10:00 Temperature 97.7 F 97.7 F 98.1 F Pulse Rate [Right Pulse Oximeter] 93 70 70 Respiratory Rate 16 16 16 Blood Pressure [Ri ght Arm] 109/66 118/70 140/76 H Pulse Oximetry 98 97 98 Oxygen Delivery Me thod Room Air Room Air Room Air 03/03/23 11:00 Temperature 97.7 F Pulse Rate [Right Pulse Oximeter] 78 Respiratory Rate 16 Blood Pressure [Ri ght Arm] 110/54 L Pulse Oximetry 98 Oxygen Delivery Me thod Room Air Labs Labs: Laboratory Results - last 24 hr 03/03/23 05:54 WBC 2.19 L RBC 3.11 L Hgb 9.9 L Hct 29.7 L MCV 96 MCH 32 MCHC 33 RDW Coeff of [place] 15.2 Plt Count 137 L Neut % (Auto) 48.8 Lymph % (Auto) 36.5 [place] % (Auto) 10.0 Eos % (Auto) 3.7 Baso % (Auto) 0.5 Neut # (Auto) 1.10 L Lymph # (Auto) 0.80 L [place] # (Auto) 0.20 Eos # (Auto) 0.10 Baso # (Auto) 0.00 Abs Immat Gran (auto) 0.00 Imm/Tot Granulo (auto) 0.5 Sodium 137 Potassium 3.8 Chloride 108 Carbon Dioxide 22 Anion Gap 7 BUN 25 Creatinine 1.4 Estimated Creat Clear 50.69 Estimated GFR 54 Glucose 179 H Calcium 8.4 Troponin I 0.12 H* C-Reactive Protein 2.2 H
[2023-03-03] MEDS: INSULIN ASPART 100 UNIT/ML SUBCUT ×2 (12:51→21:04)
[2023-03-03 15:00] VITALS: BP 109/59; PULSE 72; RESP 16; TEMP 36.6; O2SAT 97
[2023-03-03] MEDS: CARBOXYMETHYLCELLULOSE (REFRESH PLUS) TEARS 1 DROP EYE-BOTH (15:04)
[2023-03-03] MEDS: ACETAMINOPHEN 325 MG TABLET 650 MG PO (16:38)
[2023-03-03] MEDS: fentaNYL 25 MCG/HR PATCH 1 PATCH TRANSDERMA (16:39)
--- NOTE | 2023-03-03 18:32 | PC.NURSE ---
Patient A&O, VSS and afebrile throughout this shift. Blood sugars: 150 > 224 > 150. Patient needs reinforcement and education on activity & exercise. Reports having pain in his right shoulder since July after he fell; PRN tylenol & scheduled fentanyl patch given with adequate relief. PIV in right wrist flushes well and C/D/I. LR discontinued this morning per MD order. Patient tolerated PO intake with no c/o nausea. Refresh eye gtts ordered for dry eyes PRN. Continent of B&B throughout this shift. Encouraging ambulation to bathroom utilizing gait belt & 4 wheeled walker SBA. Patient has a steady gait. Hopeful to discharge home tomorrow given WBC and Hgb trend upward.
[2023-03-03 19:00] VITALS: BP 111/67; PULSE 79; RESP 16; TEMP 36.3; O2SAT 96
[2023-03-03] MEDS: ENOXAPARIN 40 MG/0.4 ML INJ SUBCUT (21:03)
[2023-03-03] MEDS: ATORVASTATIN 10 MG TABLET 20 MG PO (21:04)
[2023-03-03 22:48] VITALS: BP 129/71; PULSE 73; RESP 16; TEMP 36.4; O2SAT 98
[2023-03-04] MEDS: cefTRIAXone 1 GM in 0.9 % SODIUM CHLORIDE Mini-bag 100 ML IVPB (00:43)
[2023-03-04] MEDS: 0.9 % SODIUM CHLORIDE 250 ml IV (00:44)
[2023-03-04 03:00] VITALS: BP 143/77; PULSE 65; RESP 16; TEMP 36.5; O2SAT 98
--- NOTE | 2023-03-04 04:50 | PC.NURSE ---
Shift note: Pt is doing well with SBA to and from BR. No diarrhea, pain and fever observed. V/S WNL. Patient has adequate sleep. Due treatment given.
[2023-03-04] MEDS: OMEPRAZOLE 20 MG CAPSULE DR 40 MG PO (06:11)
[2023-03-04 07:31] LABS: Chloride* 109 mmol/L (96-114); Sodium* 131 mmol/L (135-149)
[2023-03-04 07:32] LABS: Potassium* 4.1 mmol/L (3.6-5.1)
[2023-03-04 07:34] LABS: Creatinine* 1.2 mg/dL (0.5-1.5); Est. Creatinine Clearance* 59.14; Estimated Glomerular Filt Rate 65 ml/min
[2023-03-04 07:35] LABS: Anion Gap -3 mEq/L (7-15); Blood Urea Nitrogen* 22 mg/dL (7-30); Calcium* 8.3 mg/dL (8.4-10.6); Carbon Dioxide* 25 mmol/L (20-32); Glucose* 153 mg/dL (60-115)
[2023-03-04 07:38] LABS: C Reactive Protein* 1.6 mg/dL (0.5-1.0)
[2023-03-04 08:48] VITALS: BP 149/84; PULSE 80; RESP 16; TEMP 36.6; O2SAT 100
[2023-03-04] MEDS: GABAPENTIN 600 MG TABLET PO (08:54)
[2023-03-04] MEDS: LACTOBACILLUS ACIDOPHILUS 1 TABLET 2 TAB PO ×2 (08:54→12:26)
[2023-03-04] MEDS: TAMSULOSIN HCL 0.4 MG CAPSULE PO (08:54)
[2023-03-04] MEDS: azaTHIOprine 50 MG TABLET 150 MG PO (08:54)
[2023-03-04] MEDS: TACROLIMUS 0.5 MG CAPSULE 2 MG PO (08:54)
[2023-03-04] MEDS: SODIUM BICARBONATE 650 MG TABLET PO ×2 (08:54→12:27)
[2023-03-04] MEDS: FERROUS SULFATE 325 MG TABLET PO (08:54)
[2023-03-04] MEDS: CITALOPRAM HYDROBROMIDE 20 MG TABLET 40 MG PO (08:54)
[2023-03-04] MEDS: ASPIRIN 81 MG TABLET EC PO (08:54)
[2023-03-04] MEDS: CLOPIDOGREL 75 MG TABLET PO (08:55)
[2023-03-04] MEDS: VANCOMYCIN 125 MG CAPSULE PO ×2 (08:55→12:30)
[2023-03-04] MEDS: SODIUM CHLORIDE 0.9 % (FLUSH) 10 ML SYRINGE 5 ML IVF (08:55)
[2023-03-04 09:18] LABS: Eosinophils Percent Auto 2.8 % (0.0-7.0); Hematocrit 29.8 % (37.0-53.0); Hemoglobin* 9.9 gm/dL (13.5-17.5); Immature Granulocytes Pct Auto 1.1 %; Lymphocytes Percent Auto 48.6 % (20-44); Mean Corpuscular HGB Conc 33 gm/dL (32-36); Mean Corpuscular Hemoglobin 32 pg (26-34); Mean Corpuscular Volume 96 fL (80-100); Monocytes Percent Auto 9.9 % (0.0-11.0); Neutrophils Percent Auto 37.6 % (42.0-72.0); Platelet Count* 132 K/uL (140-440); RDW Coefficient of Variation % 14.6 % (11.5-15.5); Red Blood Count 3.09 m/uL (4.30-5.90)
[2023-03-04 09:19] LABS: White Blood Count* 1.81 K/uL (4.50-11.00)
[2023-03-04 09:29] LABS: Slide Review Reflex No
[2023-03-04] MEDS: INSULIN ASPART 100 UNIT/ML SUBCUT (12:24)
[2023-03-04] MEDS: ACETAMINOPHEN 325 MG TABLET 650 MG PO (12:26)
[2023-03-04 12:27] VITALS: BP 143/68; PULSE 75; RESP 16; TEMP 36.8; O2SAT 99
--- NOTE | 2023-03-04 12:33 | P.IMPN_ITS ---
Progress Note: A&P Assessment and plan (1) Recurrent Clostridioides difficile diarrhea: Problem details: - This is the 4th documented C diff infection in the past 18 months. Last treated in November 2022. - Improving. Will need long vanco taper over weeks. - Started probiotic. - Gave patient instructions on cleaning house with bleach. - Recommend he establish with GI at [facility] given transplant service is there and this is recurrent infection, will need referral at discharge Status: Acute (2) Acute dehydration: Problem details: caused ROSANA - both resolved; Cr back to baseline of 1.1-1.2. Status: Resolved (3) Elevated troponin level: Problem details: Troponin elevated from baseline. No chest pain. No EKG changes. Suspect demand ischemia from dehydration. Troponin has peaked. Better hydrated today. Monitor for symptoms. Had ECHO in 10/2022. Status: Resolved (4) Weakness: Problem details: Acute on chronic. Patient does not want to be in a senior living but struggling to remain independent. Very sedentary. Therapy raises concern about ongoing ability to care for self at home. Cog screens have been declining at each visit. Still has capacity at this time, but may benefit from higher level of care if patient agreeable. [place] report made. [facility] saw him yesterday, but they were under the impression that he was agreeable to go home with self-paid home health, which is not the case today. Awaiting updated recommendations from the [facility]. No safe discharge plan at present. Status: Acute (5) Weight loss: Problem details: - Weight is down 20 kg in 4 months. Likely multifactorial. - Appreciate nutrition consult. Patient refused nutritional supplements and snacks. - Treat c diff as above. Add mirtazapine for depression and to increase appetite. Status: Acute (6) Adult failure to thrive: Status: Acute (7) Depression: Problem details: Denies depressive symptoms. Appears apathetic about his circumstances. Decrease citalopram and add mirtazapine. Status: Chronic (8) Anemia: Problem details: Patient with chronic anemia, but 2g drop overnight from 11.7 to 9.9. Stools are green not black. Might be dilutional with IVF, but unclear. -Will discontinue IVF as he is taking adequate PO -If stable to improved tomorrow, may be able to discharge, but if dropping will need further workup and consider lower GIB - He had similar pancytopenia last admission. Recommend he see hematology as an outpatient. Status: Chronic (9) Liver transplant recipient: Problem details: Continue anti rejection drugs Status: Chronic (10) Kidney transplant recipient: Problem details: continue antirejection meds -WBC dropped overnight, will watch Status: Chronic (11) Physical debility: Problem details: Chronic. Has not been able to stay independent at home for more than a few weeks. Continue PT and OT, will need home care PT/OT if patient qualifies as homebound or PT and OT through outpatient rehab if not qualifying as homebound. Status: Chronic Time Spent With Patient Total time spent: Today I spent 35 minutes rounding on the patient. Greater than 50% included discussing care with the team, reviewing data, updating and managing the care plan. Subjective Time Seen by Provider: 12:15 Date Seen: 03/04/23 Interval history: Lito is feeling a bit better today. Nsg reports no BMs yet today. He says the [facility] did not mention to him that he'd be paying for home nursing services out of pocket, and he is not agreeable to do that. Exam Narrative: Exam Narrative: General: No acute distress. Awake, alert, oriented x3. No pallor. No jaundice. [place], sallow face, less phoenix than when I saw him on Tuesday. Affect is flat, but slightly more animated than Tuesday. Oropharynx: Clear. Mucous membranes moist. Cardiovascular: Regular rate and rhythm. No murmurs, gallops, or rubs. Respiratory: Clear to auscultation bilaterally. No wheezes or crackles. Abdomen: Bowel sounds present. Soft, nondistended, nontender. Extremities: No pedal edema. Const: Vital Signs, click to edit/add: Vital Signs - 24 hr 03/03/23 15:00 03/03/23 15:00 03/03/23 19:00 Temperature 97.9 F 97.4 F L Pulse Rate [Right Pulse Oximeter] 72 72 79 Respiratory Rate 16 16 16 Blood Pressure [Ri ght Arm] 109/59 L 111/67 Pulse Oximetry 97 96 Oxygen Delivery Me thod Room Air Room Air 03/03/23 22:48 03/04/23 03:00 03/04/23 08:48 Temperature 97.5 F L 97.7 F 97.9 F Pulse Rate [Right Pulse Oximeter] 73 65 80 Respiratory Rate 16 16 16 Blood Pressure [Ri ght Arm] 129/71 143/77 H 149/84 H Pulse Oximetry 98 98 100 Oxygen Delivery Me thod Room Air Room Air Room Air 03/04/23 12:27 Temperature 98.2 F Pulse Rate [Right Pulse Oximeter] 75 Respiratory Rate 16 Blood Pressure [Ri ght Arm] 143/68 H Pulse Oximetry 99 Oxygen Delivery Me thod Room Air Labs Labs: Laboratory Results - last 24 hr 03/04/23 05:57 WBC 1.81 L* RBC 3.09 L Hgb 9.9 L Hct 29.8 L MCV 96 MCH 32 MCHC 33 RDW Coeff of [place] 14.6 Plt Count 132 L Neut % (Auto) 37.6 L Lymph % (Auto) 48.6 H [place] % (Auto) 9.9 Eos % (Auto) 2.8 Baso % (Auto) 0.0 Neut # (Auto) 0.70 L Lymph # (Auto) 0.90 [place] # (Auto) 0.20 Eos # (Auto) 0.10 Baso # (Auto) 0.00 Abs Immat Gran (auto) 0.00 Imm/Tot Granulo (auto) 1.1 Sodium 131 L Potassium 4.1 Chloride 109 Carbon Dioxide 25 Anion Gap -3 L BUN 22 Creatinine 1.2 Estimated Creat Clear 59.14 Estimated GFR 65 Glucose 153 H Calcium 8.3 L C-Reactive Protein 1.6 H
--- NOTE | 2023-03-04 14:26 | PM.DS1 ---
DS: Providers Provider Time Seen by Provider: 12:15 Date Seen: 03/04/23 Date of admission: 03/01/23 17:30 Primary care physician: Rubén Boyle MD Admitting Clinician: Laurie De La O MD Consults: 03/01/23 16:18 Consult to Occupational Therapy [CONS] Routine Comment: Reason(s) for OT Consult:: Evaluate and Treat Any Restrictions?:: No Restrictions Consult to Physical Therapy [CONS] Routine Comment: Reason(s) for PT Consult:: Evaluate and Treat Any Restrictions?:: No Restrictions Consult to Compression Molding Machine Operator [CONS] Routine Comment: Reason for Consult:: Discharge Planning Needs 03/01/23 17:50 Consult to Physical Therapy [CONS] Routine Comment: Reason(s) for PT Consult:: Weakness Any Restrictions?:: No Restrictions 03/02/23 12:40 Consult to Nutrition [CONS] Routine Comment: Reason for consult:: Weight Loss Attending Physician on discharge: Lyndsay Shirley MD Date of Discharge: 03/04/23 DS: Diagnosis Discharge Diagnosis (1) Depression: Status: Chronic Problem details: Denies depressive symptoms. Appears apathetic about his circumstances. Decrease citalopram and add mirtazapine. (2) Weight loss: Status: Acute Problem details: - Weight is down 20 kg in 4 months. Likely multifactorial. - Appreciate nutrition consult. Patient refused nutritional supplements and snacks. - Treat c diff as above. Add mirtazapine for depression and to increase appetite. (3) Kidney transplant recipient: Status: Chronic Problem details: continue antirejection meds (4) Liver transplant recipient: Status: Chronic Problem details: Continue anti rejection drugs (5) Acute dehydration: Status: Resolved Problem details: caused ROSANA - both resolved; Cr back to baseline of 1.1-1.2. (6) Adult failure to thrive: Status: Acute (7) Recurrent Clostridioides difficile diarrhea: Status: Acute Problem details: - This is the 4th documented C diff infection in the past 18 months. Last treated in November 2022. - Improving. Will need long vanco taper over weeks. - Started probiotic. - Gave patient instructions on cleaning house with bleach. - Recommend he establish with GI at [facility] given transplant service is there and this is recurrent infection, will need referral at discharge (8) Physical debility: Status: Chronic Problem details: Chronic. Has not been able to stay independent at home for more than a few weeks. Continue PT and OT, will need PT and OT through outpatient rehab as he is not qualifying as homebound. (9) Pancytopenia: Status: Acute Problem details: Etiology not determined. Doubt sepsis. Possible iatrogenic etiologies include aspirin, allopurinol, azathioprine, and furosemide. Consider primary bone marrow failure, infectious and noninfectious causes, verses bone marrow infiltrative processes, such as malignant versus non-malignant etiologies. Did require 2 units of packed red blood cell transfusion when hospitalized from 11/26/22-12/03/22 without apparent blood loss. -stable, slowly trending up. -follow-up outpatient with PCP for recheck (10) UTI (urinary tract infection): Status: Acute Problem details: Had 4 days of ceftriaxone. Sending home on keflex for a total of 10 days antibiotics. ? Urine Culture* Final ML Organism 1 Escherichia coli Ur [place] Count 80,000 - 90,000 CFU/ml Organism 2 Proteus mirabilis Ur [place] Count >100,000 CFU/ml E coli P mirabili ROSENDO RX ROSENDO RX --------- --- --------- --- Ampicillin <=2 S <=2 S Ampicillin/Sulbactam <=2 S <=2 S Cefazolin <=4 S <=4 S Cefepime <=1 S <=1 S Cefoxitin <=4 S <=4 S Ceftazidime <=1 S <=1 S Ceftriaxone <=1 S <=1 S Ciprofloxacin <=0.25 S <=0.25 S Ertapenem <=0.5 S <=0.5 S Gentamicin <=1 S <=1 S Imipenem <=0.25 S 2 I Levofloxacin <=0.12 S <=0.12 S Nitrofurantoin <=16 S 128 R Tobramycin <=1 S <=1 S Trimethoprim/Sulfamethoxazole <=20 S <=20 S Piperacillin/Tazobactam <=4 S <=4 S DS: Summary Hospital Course Hospital Course: 72 y/o male with recurrent Cdiff, weakness. Please see diagnoses above for more details. He is improving on vancomycin. Will need long taper and outpatient f/u with GI. Recommended patient go to SNF for cares, PT and OT. Patient declined. [facility] saw patient for concern of vulnerable adult. He is competent to make decisions. Have recommended patient get home health nursing for medication management and go to outpatient PT and OT. F/u with PCP. Time Spent with Patient Time attestation: Total time spent providing and/or coordinating discharge services: Exam Narrative: Exam Narrative: General: No acute distress. Awake, alert, oriented x3. No pallor. No jaundice. [place], sallow face, less pho[place] than when I saw him on Tuesday. Affect is flat, but slightly more animated than Tuesday. Oropharynx: Clear. Mucous membranes moist. Cardiovascular: Regular rate and rhythm. No murmurs, gallops, or rubs. Respiratory: Clear to auscultation bilaterally. No wheezes or crackles. Abdomen: Bowel sounds present. Soft, nondistended, nontender. Extremities: No pedal edema. Const: Vital Signs, click to edit/add: Vital Signs - 24 hr 03/03/23 15:00 03/03/23 15:00 03/03/23 19:00 Temperature 97.9 F 97.4 F L Pulse Rate [Right Pulse Oximeter] 72 72 79 Respiratory Rate 16 16 16 Blood Pressure [Ri ght Arm] 109/59 L 111/67 Pulse Oximetry 97 96 Oxygen Delivery Me thod Room Air Room Air 03/03/23 22:48 03/04/23 03:00 03/04/23 08:48 Temperature 97.5 F L 97.7 F 97.9 F Pulse Rate [Right Pulse Oximeter] 73 65 80 Respiratory Rate 16 16 16 Blood Pressure [Ri ght Arm] 129/71 143/77 H 149/84 H Pulse Oximetry 98 98 100 Oxygen Delivery Me thod Room Air Room Air Room Air 03/04/23 12:27 Temperature 98.2 F Pulse Rate [Right Pulse Oximeter] 75 Respiratory Rate 16 Blood Pressure [Ri ght Arm] 143/68 H Pulse Oximetry 99 Oxygen Delivery Me thod Room Air DS: Data Data Completed and Pending Completed studies during hospitalization: Ordering Physician: Miriam Wright M.D. Date of Service: 03/01/23 Procedure(s): XR chest 2V Accession Number(s): [id number] cc: Miriam Wright M.D.; Rubén Boyle M.D.~ For Patients: As a result of the 21st Century Cures Act, medical imaging exams and procedure reports are released immediately into your electronic medical record. You may view this report before your referring provider. If you have questions, please contact your health care provider. Indication: Shortness of breath Technique: Chest 2 views Comparison: Chest x-ray 01/23/2023 Findings/Impression: Cardiovascular and mediastinum: Normal heart size with atherosclerotic calcification. Status post aortic valve replacement and coronary artery stent. Lungs and pleural spaces: Linear density overlying the left lung apex, favor artifact. No acute consolidation or effusion. Bones and soft tissues: No significant findings. Dictated by Eliud Miranda MD @ 03/01/2023 3:05:44 PM (Electronically Signed) Labs on day of discharge: Labs from last 24 hours 03/04/23 05:57 WBC 1.81 L* RBC 3.09 L Hgb 9.9 L Hct 29.8 L MCV 96 MCH 32 MCHC 33 RDW Coeff of [place] 14.6 Plt Count 132 L Neut % (Auto) 37.6 L Lymph % (Auto) 48.6 H [place] % (Auto) 9.9 Eos % (Auto) 2.8 Baso % (Auto) 0.0 Neut # (Auto) 0.70 L Lymph # (Auto) 0.90 [place] # (Auto) 0.20 Eos # (Auto) 0.10 Baso # (Auto) 0.00 Abs Immat Gran (auto) 0.00 Imm/Tot Granulo (auto) 1.1 Sodium 131 L Potassium 4.1 Chloride 109 Carbon Dioxide 25 Anion Gap -3 L BUN 22 Creatinine 1.2 Estimated Creat Clear 59.14 Estimated GFR 65 Glucose 153 H Calcium 8.3 L C-Reactive Protein 1.6 H Discharge Plan Discharge Disposition: Home, Self-Care Date of Admission: 03/01/23 17:30 Attending Provider on Discharge: Lyndsay Shirley Primary Care Provider: Rubén Boyle Condition: Stable Anticipated Discharge Date/Time: 03/04/23 14:32 Discharge Medications: New vancomycin 125 mg Capsule 125 mg PO QID Qty: 105 0RF Rx Instructions: 125 mg orally 4 times daily for 14 days, then 125 mg orally 2 times daily for 7 days, then 125 mg orally once daily for 7 days, then 125 mg orally every 2 days for 8 weeks Lactobacillus acidophilus 0.5 mg (100 million cell) Tablet 100 mmu cells PO TIDWM Qty: 90 0RF cephalexin 500 mg capsule 500 mg PO Q12H Qty: 12 0RF Continued gabapentin 600 mg tablet 600 mg PO BID Qty: 180 3RF clopidogrel 75 mg tablet 75 mg PO DAILY acetaminophen 325 mg Tablet 650 mg PO Q6H PRN30 Days Qty: 50 0RF diphenoxylate-atropine 2.5-0.025 mg tablet 2 tab PO TID PRN (Reason: diarrhea) doxazosin 4 mg tablet 4 mg PO HS furosemide 40 mg tablet 40 mg PO DAILY PRN azathioprine 50 mg tablet 150 mg PO DAILY cholecalciferol (vitamin D3) .ROUTE sodium bicarbonate 650 mg tablet 1,300 mg PO BID insulin aspart U-100 [Novolog U-100 Insulin aspart] 100 unit/mL solution 100 unit subcut USEASDIRECTD Patient Comments: pt states he discontinued about a week ago due to hypoglycemia Rx Instructions: for use in insulin pump aspirin [Adult Aspirin Regimen] 81 mg tablet,delayed release (DR/EC) 81 mg PO DAILY tacrolimus 0.5 mg capsule 2 mg PO BID Patient Comments: ferrous sulfate 325 mg (65 mg iron) tablet 325 mg PO DAILY tamsulosin 0.4 mg capsule 0.4 mg PO DAILY omeprazole 40 mg capsule,delayed release(DR/EC) 40 mg PO DAILY fentanyl 25 mcg/hr patch 72 hour 1 patch transdermal Q48H Qty: 15 0RF atorvastatin 20 mg tablet 20 mg PO HS Qty: 90 0RF citalopram [Celexa] 40 mg tablet 40 mg PO DAILY Qty: 90 0RF Discharge Orders: Discharge Order (Routine); Ordered 03/04/23 Ordered By: Lyndsay Shirley Patient Education: C. Diff (Clostridioides Difficile) Infection (DC) Additional Instructions: Hematology referral for recurrent pancytopenia 1 month. PT and OT for eval and treat - outpatient rehab. Home health nursing for medication management (patient not home bound). Activity Level: Activity as Tolerated and Use Walker Discharge Diet: Regular Follow Up Appointments: Rubén Boyle MD [Primary Care Provider] - (3 days with CBC, BMP) Forms: [facility] Info Instructions
[2023-03-04 15:00] VITALS: BP 123/75; PULSE 80; RESP 18; TEMP 36.8; O2SAT 98
--- NOTE | 2023-03-04 15:24 | PC.NURSE ---
1524 This nurse entered pt chart to chart vitals and removal of IV
--- NOTE | 2023-03-04 16:40 | PC.NURSE ---
Pt alert and oriented. VSS. Pt only had complaints of headache during this see EMAR for intervention.Pt up with SBA. Pt's IV removed catheter intact. Pt discharged and transported by brother.
--- NOTE | 2023-03-04 16:45 | PC.SOCIAL ---
Received phone call from Makenna Marquez ([facility] ) at [phone]. Makenna informs that she met with pt at [facility] and he is competent to make his own decisions. Makenna would like to see Home health nursing in place when pt discharges. Pt is not homebound, so he will have to privately pay for [place] [facility]. Makenna Marquez had a phone call with pt and he agrees to pay privately for nursing services. Makenna contacted Catia at [facility] and they are willing to accept pt. Phone call to [facility] and left a voicemail for Catia to return a call to this worker. Received a phone call from Catia informing that they can accept pt for home care [place] [facility] visits. Catia requests a face sheet, discharge summary, medication list, and face to face home care order to be faxed to [facility] at [phone]. Faxed requested information and provided update to pt. Social work will follow up as needed.
--- NOTE | 2023-03-04 19:29 | PC.NURSE ---
Pt to continue fentanyl patch per medication list. Patch was left on right arm/upper should and Pt was educated when to change patch per MD orders.
== END 2023-03-04 16:44 | disposition home health service (06) | DRG 372 ==
LOC: ED 13:10 → MEDSURG 14:53
PROVIDERS: Family Medicine; Admitting Provider Family Medicine; Emergency Provider Family Medicine; PCP Family Medicine; Visit Provider Physician Assistant
DX: A04.71 Enterocolitis due to Clostridium difficile, recurrent (principal); D61.818 Other pancytopenia; N17.9 Acute kidney failure, unspecified; D84.81 Immunodeficiency due to conditions classified elsewhere; E87.20 Acidosis, unspecified; Z94.0 Kidney transplant status; F32.1 Major depressive disorder, single episode, moderate; N39.0 Urinary tract infection, site not specified; I24.89 Other forms of acute ischemic heart disease; E86.0 Dehydration; G89.29 Other chronic pain; I10 Essential (primary) hypertension; Z95.2 Presence of prosthetic heart valve; I34.0 Nonrheumatic mitral (valve) insufficiency; E11.40 Type 2 diabetes mellitus with diabetic neuropathy, unspecified; F10.21 Alcohol dependence, in remission; R63.4 Abnormal weight loss; E83.42 Hypomagnesemia; R62.7 Adult failure to thrive; D64.9 Anemia, unspecified; B96.4 Proteus (mirabilis) (morganii) as the cause of diseases classified elsewhere; B96.20 Unspecified Escherichia coli [E. coli] as the cause of diseases classified elsewhere
CPT/HCPCS: 36415; 51798; 71046; 80048; 80076; 81001; 81003; 82962; 83605; 83735; 83880; 84100; 84484; 85025; 86140; 87045; 87046; 87086; 87186; 87427; 87493; 93005; 94761; 97112; 97116; 97162; 97166; 97535; 99284; 99285; A9270; J0696; J1650; J3475; J7050; J7120; J7500; J7507

== ENCOUNTER 2023-03-18 12:37 | Inpatient (IN) | payer MEDICARE, BC, SELFPAY ==
[2023-03-18] VITALS (36 sets, daily range): BP systolic 152–187; BP diastolic 79–107; PULSE 90–118; RESP 18–28; TEMP 35.3–37.8; O2SAT 96–100; BMI 26.6
--- NOTE | 2023-03-18 12:48 | ED_ITS ---
HPI - Nausea/Vomiting/Diarrhea General Time Seen by Provider: 12:48 Date Seen: 03/18/23 Chief complaint: Nausea/Vomiting Stated complaint: vomiting Time Seen by Provider: 03/18/23 13:19 Source: patient, RN notes reviewed and old records reviewed Mode of arrival: EMS Limitations: no limitations History of Present Illness HPI Narrative: Lito is a very pleasant 72-year-old male with a history of renal transplant, liver transplant, anemia recurrent C diff remote history of alcoholism who is brought to the emergency room by [facility] for evaluation regarding vomiting. Patient notes the onset of vomiting last evening in association with right lower quadrant pain. He has not had a fever, in fact EMS noted that he was very cold and nursing notes a temp of 95.5?. He was immediately placed in the bear hugger and states he is no longer cold. He denies chest pain or cough. He does agrees had a runny nose. He also endorses diarrhea 3 episodes daily for the last 3 days. The vomiting however started last night. Patient denies painful urination. Associated nausea: Yes Related Data Home Medications Medication Instructions Recorded Confirmed aspirin 81 mg tablet,delayed 81 mg PO DAILY 10/22/21 03/18/23 release (Adult Aspirin Regimen) tacrolimus 0.5 mg capsule, 2 mg PO BID 05/17/22 03/18/23 immediate-release ferrous sulfate 325 mg (65 mg 325 mg PO DAILY 10/26/22 03/18/23 iron) tablet tamsulosin 0.4 mg capsule 0.4 mg PO DAILY 10/26/22 03/18/23 clopidogrel 75 mg tablet 75 mg PO DAILY 11/01/22 03/18/23 omeprazole 40 mg capsule,delayed 40 mg PO DAILY 01/22/23 03/18/23 release azathioprine 50 mg tablet 150 mg PO DAILY 03/01/23 03/18/23 diphenoxylate-atropine 2.5 2 tab PO TID PRN diarrhea 03/01/23 03/18/23 mg-0.025 mg tablet doxazosin 4 mg tablet 4 mg PO HS 03/01/23 03/18/23 furosemide 40 mg tablet 40 mg PO DAILY PRN 03/01/23 03/18/23 sodium bicarbonate 650 mg tablet 1,300 mg PO BID 03/01/23 03/18/23 Previous Rx's Medication Instructions Recorded fentanyl 25 mcg/hr transdermal 1 patch transdermal Q48H #15 ea 11/19/22 patch acetaminophen 325 mg tablet 650 mg (2 x 325 mg) PO Q6H PRN 30 12/03/22 days #50 tabs atorvastatin 20 mg tablet 20 mg PO HS #90 tabs 01/21/23 citalopram 40 mg tablet (Celexa) 40 mg PO DAILY #90 tabs 02/18/23 Lactobacillus acidophilus 0.5 mg 100 mmu cells PO TIDWM #90 tabs 03/04/23 (100 million cell) tablet vancomycin 125 mg capsule 125 mg PO QID #105 caps 03/04/23 gabapentin 600 mg tablet 600 mg PO BID #180 tabs 03/17/23 Allergies Allergy/AdvReac Type Severity Reaction Status Date / Time phytonadione (vitamin K1) Allergy Intermediate Unknown Verified 03/01/23 11:00 Review of Systems Status of ROS: Reports: 10 or more systems reviewed and unremarkable except as noted in History and below Const: Reports: chills and change in weight; Denies: fever Eyes: Denies: change in vision ENMT: Denies: throat pain, throat swelling or difficulty swallowing Cardio: Denies: chest pain, swelling of feet/ankles or shortness of breath with exertion Resp: Denies: shortness of breath or cough GI: Reports: abdominal pain, nausea, vomiting and diarrhea; Denies: difficulty swallowing or blood in stool : Denies: painful urination or urinary frequency Musculo: Denies: back pain Allergy/Immuno: Denies: throat swelling PFSH PFSH Medical History Depression ?F32.A - Depression, unspecified (ICD-10) Weight loss ?R63.4 - Abnormal weight loss (ICD-10) Diarrhea ?R19.7 - Diarrhea, unspecified (ICD-10) Chronic right hip pain ?M25.551 - Pain in right hip (ICD-10) ?G89.29 - Other chronic pain (ICD-10) Penile ulcer ?N48.5 - Ulcer of penis (ICD-10) Type 2 diabetes mellitus treated with insulin ?E11.9 - Type 2 diabetes mellitus without complications (ICD-10) ?Z79.4 - prison (current) use of insulin (ICD-10) Fall at home ?W19.XXXA - Unspecified fall, initial encounter (ICD-10) ?Y92.009 - Unspecified place in unspecified non-institutional (private) residence as the place of occurrence of the external cause (ICD-10) Elevated uric acid in blood ?E79.0 - Hyperuricemia without signs of inflammatory arthritis and tophaceous disease (ICD-10) Weakness ?R53.1 - Weakness (ICD-10) Elevated bilirubin ?R17 - Unspecified jaundice (ICD-10) Metabolic encephalopathy ?G93.41 - Metabolic encephalopathy (ICD-10) Low back pain ?M54.50 - Low back pain, unspecified (ICD-10) Vitamin D deficiency ?E55.9 - Vitamin D deficiency, unspecified (ICD-10) History of transcatheter aortic valve replacement (TAVR) ?Z95.2 - Presence of prosthetic heart valve (ICD-10) BPH (benign prostatic hyperplasia) ?N40.0 - Benign prostatic hyperplasia without lower urinary tract symptoms (ICD-10) History of non-anemic folic acid deficiency ?Z86.39 - Personal history of other endocrine, nutritional and metabolic disease (ICD-10) History of colonic polyps (05/10/13) ?Z86.010 - Personal history of colonic polyps (ICD-10) Folic acid deficiency (01/22/16) ?E53.8 - Deficiency of other specified B group vitamins (ICD-10) Erectile dysfunction ?N52.9 - Male erectile dysfunction, unspecified (ICD-10) Current moderate episode of major depressive disorder without prior episode (01/14/17) ?F32.1 - Major depressive disorder, single episode, moderate (ICD-10) Controlled substance agreement signed (04/19/18) ?Z79.899 - Other intermission coordinator (current) drug therapy (ICD-10) Pancytopenia ?D61.818 - Other pancytopenia (ICD-10) Pain syndrome, chronic ?G89.4 - Chronic pain syndrome (ICD-10) Chronic kidney disease (CKD) ?N18.9 - Chronic kidney disease, unspecified (ICD-10) History of ETOH abuse ?F10.11 - Alcohol abuse, in remission (ICD-10) CHF (congestive heart failure) ?I50.9 - Heart failure, unspecified (ICD-10) Mitral regurgitation ?I34.0 - Nonrheumatic mitral (valve) insufficiency (ICD-10) Diabetic neuropathy ?E11.40 - Type 2 diabetes mellitus with diabetic neuropathy, unspecified (ICD-10) GERD (gastroesophageal reflux disease) ?K21.9 - Gastro-esophageal reflux disease without esophagitis (ICD-10) Hyperlipidemia ?E78.5 - Hyperlipidemia, unspecified (ICD-10) HTN (hypertension) ?I10 - Essential (primary) hypertension (ICD-10) Diverticulosis ?K57.90 - Diverticulosis of intestine, part unspecified, without perforation or abscess without bleeding (ICD-10) Surgical History Liver transplant recipient ?Z94.4 - Liver transplant status (ICD-10) Kidney transplant recipient ?Z94.0 - Kidney transplant status (ICD-10) History of coronary artery stent placement ?Z95.5 - Presence of coronary angioplasty implant and graft (ICD-10) S/P TAVR (transcatheter aortic valve replacement) ?Z95.2 - Presence of prosthetic heart valve (ICD-10) History of liver transplant (07/10/16) ?Z94.4 - Liver transplant status (ICD-10) History of decompression of ulnar nerve (1979) ?Z98.890 - Other specified postprocedural states (ICD-10) History of cataract extraction (2017) ?Z98.49 - Cataract extraction status, unspecified eye (ICD-10) 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) ?Z96.643 - Presence of artificial hip joint, bilateral (ICD-10) History of hip replacement ?Z96.649 - Presence of unspecified artificial hip joint (ICD-10) Hx of hernia repair ?Z98.890 - Other specified postprocedural states (ICD-10) ?Z87.19 - Personal history of other diseases of the digestive system (ICD-10) Family History Father Diabetes Coronary artery disease Sister Diabetes Social History Narrative: He lives in [place]. He lives by himself. He functions independently. He is retired. Remote history of smoking having quit about 20 years ago after a 10 pack year history. 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 Last drank in 2016 What is your current living situation?: I presently have a place to live Problems where you live: no known problems Problems where you live details: NA In the past 12 months, utilities in danger of being shut off: no In past 12 months, lack of transportation kept you from medical appts, meetings, work, or getting things needed for daily living: no In the past 12 mos, have been you worried that your food would run out before you had money to buy more?: never true In the past 12 mos, the food you bought just didn't last and you didn't have money to buy more?: never true Highest level of school completed/degree received: some college, no degree Smoking Status: Former smoker Do you use any of these nicotine containing products: None Second hand tobacco smoke exposure: No How often do you have a drink containing alcohol: never How often do you have six or more drinks on one occasion: Never AUDIT-C Alcohol total score: 0 Non-prescribed substance use: denies use Caffeine: No How often does anyone, including family, friends and others, physically hurt you : never How often does anyone, including family, friends and others, insult or talk down to you: never How often does anyone, including family, friends and others, threaten you with harm: never How often does anyone, including family, friends and others, scream or curse at you: never Little interest or pleasure in doing things: more than half the days Feeling down, depressed, or hopeless: more than half the days service: No Exam Narrative: Exam Narrative: Patient is awake and alert. Nursing staff had noted some lapses in finding words or with knowing what time it was but I find him to be acting normally. He is cachectic in appearance and is obvious weight loss since I saw him this past summer is evident. His eyes are clear. He is somewhat pale. EOM is full however. Oral cavity with moist mucous membranes. Heart with a tachycardic rate but normal rhythm. Lungs are clear bilaterally. Abdomen is soft and tender in the right lower quadrant but there is no rebound tenderness. I do not palpate any masses. Lower extremities with scant peripheral edema. He is moving all of the extremities. Const: Vital Signs, click to edit/add: Vital Signs - 24 hr 03/18/23 12:43 03/18/23 13:02 03/18/23 13:14 Temperature 95.5 F L Pulse Rate 103 H 105 H Pulse Rate [Left P ulse Oximeter] Pulse Rate [Pulse Oximeter] 105 H Respiratory Rate 28 H Blood Pressure 160/95 H Blood Pressure [Le ft Arm] Blood Pressure [Ri ght Upper Arm] 167/92 H Pulse Oximetry 100 99 [facility] 03/18/23 13:15 03/18/23 13:21 03/18/23 13:30 Temperature 95.5 F L Pulse Rate 97 97 Pulse Rate [Left P ulse Oximeter] Pulse Rate [Pulse Oximeter] Respiratory Rate Blood Pressure Blood Pressure [Le ft Arm] Blood Pressure [Ri ght Upper Arm] Pulse Oximetry 99 98 [facility] 03/18/23 13:32 03/18/23 13:45 03/18/23 13:50 Temperature 99.0 F Pulse Rate 98 106 H Pulse Rate [Left P ulse Oximeter] Pulse Rate [Pulse Oximeter] Respiratory Rate Blood Pressure 162/107 H Blood Pressure [Le ft Arm] Blood Pressure [Ri ght Upper Arm] Pulse Oximetry 96 98 [facility] 03/18/23 14:00 03/18/23 14:01 03/18/23 14:02 Temperature Pulse Rate 104 H 102 H 102 H Pulse Rate [Left P ulse Oximeter] Pulse Rate [Pulse Oximeter] Respiratory Rate Blood Pressure 166/90 H Blood Pressure [Le ft Arm] Blood Pressure [Ri ght Upper Arm] Pulse Oximetry 100 100 [facility] 03/18/23 14:15 03/18/23 14:30 03/18/23 14:32 Temperature Pulse Rate 107 H 97 97 Pulse Rate [Left P ulse Oximeter] Pulse Rate [Pulse Oximeter] Respiratory Rate Blood Pressure 152/86 H Blood Pressure [Le ft Arm] Blood Pressure [Ri ght Upper Arm] Pulse Oximetry 100 100 99 Oxygen Delivery Me od 03/18/23 14:45 03/18/23 15:00 03/18/23 15:02 Temperature Pulse Rate 104 H 100 113 H Pulse Rate [Left P ulse Oximeter] Pulse Rate [Pulse Oximeter] Respiratory Rate Blood Pressure 180/102 H Blood Pressure [Le ft Arm] Blood Pressure [Ri ght Upper Arm] Pulse Oximetry 100 100 99 Oxygen Delivery Me thod 03/18/23 15:03 03/18/23 15:15 03/18/23 15:30 Temperature Pulse Rate 110 H 112 H 90 Pulse Rate [Left P ulse Oximeter] Pulse Rate [Pulse Oximeter] Respiratory Rate Blood Pressure Blood Pressure [Le ft Arm] Blood Pressure [Ri ght Upper Arm] Pulse Oximetry 98 98 98 Oxygen Delivery Me thod 03/18/23 15:31 03/18/23 15:45 03/18/23 16:00 Temperature Pulse Rate 118 H 103 H 106 H Pulse Rate [Left P ulse Oximeter] Pulse Rate [Pulse Oximeter] Respiratory Rate Blood Pressure 162/89 H Blood Pressure [Le ft Arm] Blood Pressure [Ri ght Upper Arm] Pulse Oximetry 99 99 100 Oxygen Delivery Me thod 03/18/23 16:02 03/18/23 16:15 03/18/23 16:30 Temperature Pulse Rate 105 H 101 H 103 H Pulse Rate [Left P ulse Oximeter] Pulse Rate [Pulse Oximeter] Respiratory Rate Blood Pressure 174/94 H Blood Pressure [Le ft Arm] Blood Pressure [Ri ght Upper Arm] Pulse Oximetry 100 99 97 Oxygen Delivery Me thod 03/18/23 16:32 03/18/23 16:45 03/18/23 17:12 Temperature 100.1 F H Pulse Rate 104 H 106 H Pulse Rate [Left P ulse Oximeter] 106 H Pulse Rate [Pulse Oximeter] Respiratory Rate 18 Blood Pressure 176/79 H Blood Pressure [Le ft Arm] 178/95 H Blood Pressure [Ri ght Upper Arm] Pulse Oximetry 99 97 97 [facility] 03/18/23 17:18 Temperature Pulse Rate 106 H Pulse Rate [Left P ulse Oximeter] Pulse Rate [Pulse Oximeter] Respiratory Rate Blood Pressure Blood Pressure [Le ft Arm] Blood Pressure [Ri ght Upper Arm] Pulse Oximetry Oxygen Delivery Me thod Documenting provider has reviewed patient's vital signs: yes Course Course ED Course: Differential diagnosis is quite broad but I am concerned about sepsis. Sources could include pneumonia, cholecystitis, diverticulitis, colitis as well as UTI. Patient does have a history of C diff and loose stools over the past 3 days. However, no recent antibiotics and he does have chronic diarrhea as well. Will obtain C diff. I would like to pursue CT of the chest abdomen and pelvis and I am waiting on a creatinine at this time. Further tests include CBC, comprehensive panel, CRP, lactate, troponin, EKG, urinalysis. Reevaluation(s) Reevaluation #1: Creatinine is elevated at 1.8. Two weeks ago creatinine is 1.2. Will proceed with CT noncontrast of chest abdomen and pelvis. Reevaluation #2: Patient noted to have improved temperature and in is no longer complaining of any chills or feeling cold. He has had intermittent t hiccups while here. I do not yet have any possible source of sepsis and therefore will give 1 dose of Zosyn 3.375 g IV while awaiting results. It is noted that patient has an elevated blood sugar to 290 and bicarb of 13. VBG and repeat lactate are ordered as well. 2 L of normal saline ordered. Vital Signs Vital signs: Initial Vital Signs Temperature 95.5 F L 03/18/23 12:43 Temperature Source Oral 03/18/23 12:43 Pulse Rate 105 H 03/18/23 12:43 Respiratory Rate 28 H 03/18/23 12:43 Blood Pressure 167/92 H 03/18/23 12:43 Blood Pressure Mean 117 H 03/18/23 12:43 Blood Pressure Position Supine 03/18/23 12:43 Pulse Oximetry 100 03/18/23 12:43 Oxygen Delivery Method Room Air 03/18/23 12:43 Vital Signs Temperature 95.5 F L 03/18/23 12:43 Pulse Rate 105 H 03/18/23 12:43 Respiratory Rate 28 H 03/18/23 12:43 Blood Pressure 167/92 H 03/18/23 12:43 Pulse Oximetry 100 03/18/23 12:43 Oxygen Delivery Method Room Air 03/18/23 12:43 Temperature 98.1 F 03/18/23 21:49 Pulse Rate 102 H 03/18/23 21:49 Respiratory Rate 22 03/18/23 21:49 Blood Pressure 168/98 H 03/18/23 21:49 Pulse Oximetry 100 03/18/23 21:49 Oxygen Delivery Method Room Air 03/18/23 21:49 Medications Administered Medications: Generic Name Dose Route Start Last Admin Trade Name Freq PRN Reason Stop Dose Admin Acetaminophen 650 mg 03/18/23 17:25 03/18/23 18:01 Acetaminophen 325 Mg Tablet PO 650 mg Q6H PRN Administration Atorvastatin Calcium 20 mg 03/18/23 21:00 03/18/23 21:34 Atorvastatin 10 Mg Tablet PO 20 mg HS FABY Administration Clotrimazole 1 applic 03/18/23 21:00 03/18/23 21:33 Clotrimazole 1 % Cream TOPICAL 1 applic BID FABY Administration Doxazosin Mesylate 4 mg 03/18/23 21:00 03/18/23 21:33 Doxazosin 4 Mg Tablet PO 4 mg HS FABY Administration Enoxaparin Sodium 30 mg 03/18/23 21:00 03/18/23 21:34 Enoxaparin 30 Mg/0.3ml Inj SUBCUT 30 mg Q24H FABY Administration Piperacillin Sod/Tazobactam 100 mls @ 200 mls/hr 03/18/23 21:00 03/18/23 21:32 Sod 3.375 gm/ Sodium Chloride IVPB 200 mls/hr Q6H FABY Administration Insulin Human (Reg)/Sodium Chloride 100 unit in 100 mls @ 6.5 mls/hr 03/18/23 19:00 03/18/23 22:13 Insulin Inf 100 Unit/100 Ml IVPB 5.25 unit/hr .[id number] FABY 5.25 mls/hr Infusion Protocol 6.5 UNIT/HR Potassium Chloride/Dextrose/Sod Cl 1,000 mls @ 125 mls/hr 03/18/23 19:30 03/18/23 19:52 5 % Dex/0.9 Sod Chl+Kcl 20 Meq IV 125 mls/hr .Q8H FABY Administration Lactobacillus Acidophilus 1 tab 03/18/23 18:00 03/18/23 20:11 Lactobacillus Acidophilus 1 Tablet PO 1 tab TIDWM FABY Administration Lidocaine HCl 6 ml 03/18/23 15:55 03/18/23 16:00 Lidocaine Hcl 2 % Jelly (Top) Sterile UR 6 ml ONCE PRN Administration Sodium Bicarbonate 1,300 mg 03/18/23 21:00 03/18/23 21:35 Sodium Bicarbonate 650 Mg Tablet PO 1,300 mg BID FABY Administration Sodium Chloride 5 ml 03/18/23 21:00 03/18/23 21:33 Sodium Chloride 0.9 % (Flush) 10 Ml Syringe IVF 5 ml BID FABY Administration Tacrolimus 2 mg 12/01/23 21:00 03/18/23 21:33 Tacrolimus 0.5 Mg Capsule PO 2 mg BID FABY Administration Vancomycin HCl 125 mg 03/18/23 21:00 03/18/23 21:34 Vancomycin 125 Mg Capsule PO 125 mg QID FABY Administration Discontinued Medications Generic Name Dose Route Start Last Admin Trade Name Freq PRN Reason Stop Dose Admin Sodium Chloride 1,000 mls @ 1,000 mls/hr 03/18/23 13:02 03/18/23 14:32 0.9 % Sodium Chloride 1000 Ml IV 03/18/23 14:01 Infused .Q1H FABY Infusion Piperacillin Sod/Tazobactam 100 mls @ 200 mls/hr 03/18/23 14:22 03/18/23 15:36 Sod 3.375 gm/ Sodium Chloride IVPB 03/18/23 14:23 Infused ONCE ONE Infusion Sodium Chloride 1,000 mls @ 1,000 mls/hr 03/18/23 14:53 03/18/23 16:45 0.9 % Sodium Chloride 1000 Ml IV 03/18/23 15:52 Infused .Q1H FABY Infusion Sodium Chloride 1,000 mls @ 1,000 mls/hr 03/18/23 17:30 03/18/23 21:16 0.9 % Sodium Chloride 1000 Ml IV 03/18/23 18:29 Infused .Q1H FABY Infusion Lorazepam 0.25 mg 03/18/23 15:20 03/18/23 15:30 Lorazepam 2 Mg/Ml Inj IVP 03/18/23 15:21 0.25 mg ONCE ONE Administration MDM - Nausea/Vomiting/Diarrhea MDM Narrative Medical decision making narrative: 1. Early sepsis-patient was hypothermic, tachycardic and tachypneic upon arrival. He also had significant flank complaints of right lower quadrant pain, onset of vomiting last evening as well as diarrhea over the past 3 days. Given findings patient was given Zosyn 3.375 g IV along with 2 L of normal saline. Blood cultures are currently pending at this time as is urine culture. Fortunately CT of the chest abdomen and pelvis was negative. Lactate 2.0 with repeat 1.4 2. Diarrhea-have ordered C diff culture. Patient has experienced acute on chronic diarrhea in the past. 3. Hyperglycemia with anion gap-currently awaiting VBG 4. Disposition-admit under the care of hospitalist Dr. Agustin. Medical Records Attestation: I reviewed the patient's medical records. Lab Data Attestation: I reviewed the patient's lab results. Labs: Lab Results 03/18/23 03/18/23 03/18/23 Range/Units 12:06 12:57 13:00 WBC 6.72 (4.50-11.00) K/uL RBC 4.70 (4.30-5.90) m/uL Hgb 14.9 (13.5-17.5) gm/dL Hct 41.8 (37.0-53.0) % MCV 89 (80-100) fL MCH 32 (26-34) pg MCHC 36 (32-36) gm/dL RDW Coeff of [place] 14.0 (11.5-15.5) % Plt Count 205 (140-440) K/uL Neut % (Auto) 80.7 H (42.0-72.0) % Lymph % (Auto) 12.5 L (20-44) % [place] % (Auto) 6.4 (0.0-11.0) % Eos % (Auto) 0.0 (0.0-7.0) % Baso % (Auto) 0.0 (0.0-3.0) % Neut # (Auto) 5.40 (1.7-7.0) K/uL Lymph # (Auto) 0.80 L (0.90-2.90) K/uL [place] # (Auto) 0.40 (0.00-0.90) K/UL Eos # (Auto) 0.00 (0.00-0.50) K/uL Baso # (Auto) 0.00 (0.00-0.30) K/uL Abs Immat Gran (auto) 0.03 (0.00-0.30) K/uL Imm/Tot Granulo (auto) 0.4 % VBG pH 7.454 H (7.32-7.43) VBG pCO2 23 L (40-50) mmHG VBG pO2 38.8 (25-47) mmHG VBG HCO3 16 L (21-28) mmol/L Sodium 134 L (135-149) mmol/L Potassium 4.5 (3.6-5.1) mmol/L Chloride 99 (96-114) mmol/L Carbon Dioxide 13 L (20-32) mmol/L Anion Gap 22 H (7-15) mEq/L BUN 21 (7-30) mg/dL Creatinine 1.8 H (0.5-1.5) mg/dL Estimated GFR 40 ml/min Glucose 290 H (60-115) mg/dL Lactate 2.0 H (0.5-1.9) mmol/L Calcium 10.2 (8.4-10.6) mg/dL Magnesium 1.6 (1.5-2.6) mg/dL Total Bilirubin 1.7 H (0.1-1.5) mg/dL AST 20 (12-35) U/L ALT 12 (4-50) U/L Alkaline Phosphatase 81 (40-150) U/L Total Creatine Kinase 32 L (54-186) U/L Troponin I 0.02 (0.01-0.04) ng/mL Total Protein 8.6 H (6.0-8.3) g/dL Albumin 4.9 (3.3-5.0) g/dL Urine Color Yellow (Yellow) Urine Appearance Clear (Clear) Urine pH 5.5 (5.0-8.5) Ur Specific [place] 1.025 (1.000-1.030) Urine Protein 2+ A (Negative) Urine Glucose (UA) 1+ A (Negative) Urine Ketones 4+ A (Negative) Urine Blood Trace-intact A (Negative) Urine Nitrite Negative (Negative) Urine Bilirubin 2+ A (Negative) Urine Urobilinogen 0.2 (0.2-1.0) Ur Leukocyte Esterase Negative (Negative) Urine RBC 0-2 (0-2) Urine WBC 0-2 (0-5) Ur Squamous Epith Cells Few (None-Few) Urine Bacteria Few A (None) Fine Granular Casts Few A (None) Ethyl Alcohol < 0.01 L (0.01-0.03) % SARS-CoV-2 (PCR) (Negative) Influenza Type A (PCR) (Negative) Influenza Type B (PCR) (Negative) RSV (PCR) (Negative) Lab Acknowledgement POC Troponin I 0.01 (0.01-0.04) ng/ml 03/18/23 03/18/23 03/18/23 Range/Units 13:07 13:40 17:32 WBC (4.50-11.00) K/uL RBC (4.30-5.90) m/uL Hgb (13.5-17.5) gm/dL Hct (37.0-53.0) % MCV (80-100) fL MCH (26-34) pg MCHC (32-36) gm/dL RDW Coeff of [place] (11.5-15.5) % Plt Count (140-440) K/uL Neut % (Auto) (42.0-72.0) % Lymph % (Auto) (20-44) % [place] % (Auto) (0.0-11.0) % Eos % (Auto) (0.0-7.0) % Baso % (Auto) (0.0-3.0) % Neut # (Auto) (1.7-7.0) K/uL Lymph # (Auto) (0.90-2.90) K/uL [place] # (Auto) (0.00-0.90) K/UL Eos # (Auto) (0.00-0.50) K/uL Baso # (Auto) (0.00-0.30) K/uL Abs Immat Gran (auto) (0.00-0.30) K/uL Imm/Tot Granulo (auto) % VBG pH (7.32-7.43) VBG pCO2 (40-50) mmHG VBG pO2 (25-47) mmHG VBG HCO3 (21-28) mmol/L Sodium (135-149) mmol/L Potassium (3.6-5.1) mmol/L Chloride (96-114) mmol/L Carbon Dioxide (20-32) mmol/L Anion Gap (7-15) mEq/L BUN (7-30) mg/dL Creatinine (0.5-1.5) mg/dL Estimated GFR ml/min Glucose (60-115) mg/dL Lactate (0.5-1.9) mmol/L Calcium (8.4-10.6) mg/dL Magnesium (1.5-2.6) mg/dL Total Bilirubin (0.1-1.5) mg/dL AST (12-35) U/L ALT (4-50) U/L Alkaline Phosphatase (40-150) U/L Total Creatine Kinase (54-186) U/L Troponin I (0.01-0.04) ng/mL Total Protein (6.0-8.3) g/dL Albumin (3.3-5.0) g/dL Urine Color (Yellow) Urine Appearance (Clear) Urine pH (5.0-8.5) Ur Specific [place] (1.000-1.030) Urine Protein (Negative) Urine Glucose (UA) (Negative) Urine Ketones (Negative) Urine Blood (Negative) Urine Nitrite (Negative) Urine Bilirubin (Negative) Urine Urobilinogen (0.2-1.0) Ur Leukocyte Esterase (Negative) Urine RBC (0-2) Urine WBC (0-5) Ur Squamous Epith Cells (None-Few) Urine Bacteria (None) Fine Granular Casts (None) Ethyl Alcohol (0.01-0.03) % SARS-CoV-2 (PCR) Negative SARS-CoV-2 (Negative) Influenza Type A (PCR) Negative PCR FLU A (Negative) Influenza Type B (PCR) Negative PCR FLU B (Negative) RSV (PCR) Negative PCR RSV (Negative) Lab Acknowledgement Test Added Test Added POC Troponin I (0.01-0.04) ng/ml Imaging Data Chest x-ray: Attestation: I have reviewed the pertinent imaging results. My impression: Chronic lung markings Radiologist's impression: ardiovasculature and mediastinum: Heart size and vasculature are normal in caliber and appearance. Status post aortic valve replacement and coronary artery stenting. Lungs and pleural spaces: Lungs are clear. No sign of infiltrate or mass. No sign of pleural effusion. No pneumothorax. Bones and soft tissues: No significant findings. IMPRESSION: No acute cardiopulmonary process. CT Chest/Ab/Pelvis: Attestation: I have reviewed the pertinent imaging results. Radiologist's impression: Cardiovascular structures: Heart size is normal. Postsurgical changes of aortic valve repair. Coronary artery stents. Mitral annular calcifications. Thoracic aorta and main pulmonary artery are normal in caliber. Mediastinum and ant: No mass or adenopathy. Lungs and pleura: Lungs and pleural spaces are clear. No suspicious nodules, infiltrates, or effusions. Chest wall and axilla: No mass or adenopathy. Bones: No suspicious bone lesions. Unremarkable for age. ABDOMEN AND PELVIS: Liver: No focal lesions. There are multiple surgical clips along the border of the liver. Gallbladder and bile ducts: Status post cholecystectomy. Pancreas: Fatty atrophy. No ductal dilatation. No peripancreatic inflammatory changes. Spleen: Unremarkable. Adrenal glands: Unremarkable. Kidneys: Slightly atrophic [place] kidneys with similar appearing left renal cyst. Nonspecific perinephric stranding, unchanged compared to prior exam. No renal calculi or hydronephrosis. Right lower quadrant transplant kidney appears within normal limits on this unenhanced exam. GI tract: No evidence of bowel obstruction or inflammation. Small hiatal hernia. The appendix is normal. Extensive colonic diverticulosis without definitive CT evidence of acute diverticulitis. Vascular structures: Abdominal aorta is normal in caliber. Calcific atherosclerosis of the aortoiliac system. Lymph nodes: Unremarkable. Miscellaneous: Unremarkable. No free air or significant free fluid. Pelvic Organs: Not well evaluated secondary to beam hardening artifact. The visualized bladder is within normal limits. The visualized prostate is within normal limits. Large fat containing left inguinal hernia. Likely calcified peritoneal loose body seen within the pelvis to the left of midline (series 2, image 174). Bones: No suspicious bone lesions. No acute fracture or malalignment. Bilateral total hip arthroplasties. IMPRESSION: 1. No unenhanced CT evidence of an acute process involving the chest, abdomen, or pelvis. 2. Incidental findings as detailed above. ECG Data Attestation: I personally reviewed and interpreted this ECG as follows: ECG interpretation date: 03/18/23 Interpretation: EKG by my read shows sinus rhythm at a rate of 100. No acute ST or T-wave changes. QT and [place] intervals within normal limits. Discharge Plan Discharge Patient Disposition: Admitted As Inpatient Critical Care Time Critical Care Time Critical Care Time: Yes Attestation: The patient required my highest level preparedness to intervene emergently and I personally spent this critical care time directly and personally managing the patient. This critical care time included: Obtaining a history; Examining the patient; Pulse oximetry; Ordering and reviewing of studies; Arranging urgent treatment with development of a management plan; Evaluation of patients response to treatment; Frequent reassessment discussions with other providers. This critical care time was performed to assess and manage the high probability of imminent life-threatening deterioration that could result in multiorgan failure. It was exclusive of separate billable procedures and treating other patients and teaching time. Total Critical Care Time in Minutes: 45
--- NOTE | 2023-03-18 13:00 | CRLHL7_ITS ---
For Patients: As a result of the Century Cures Act, medical imaging exams and procedure reports are released immediately into your electronic medical record. You may view this report before your referring provider. If you have questions, please contact your health care provider. INDICATION: Confusion TECHNIQUE: Chest 1 views. COMPARISON: Chest radiograph on March 01, 2023 FINDINGS: Cardiovasculature and mediastinum: Heart size and vasculature are normal in caliber and appearance. Status post aortic valve replacement and coronary artery stenting. Lungs and pleural spaces: Lungs are clear. No sign of infiltrate or mass. No sign of pleural effusion. No pneumothorax. Bones and soft tissues: No significant findings. IMPRESSION: No acute cardiopulmonary process. Dictated by Justyn Kinney MD @ 03/18/2023 1:50:51 PM (Electronically Signed)
--- NOTE | 2023-03-18 13:00 | ED.NURSE ---
Pt oral temp 95.5F, skin on extremities cold to touch. notified, oriana jeffery applied.
[2023-03-18 13:10] LABS: Hematocrit 41.8 % (37.0-53.0); Hemoglobin* 14.9 gm/dL (13.5-17.5); Immature Granulocytes Abs Auto 0.03 K/uL (0.00-0.30); Immature Granulocytes Pct Auto 0.4 %; Lymphocytes Percent Auto 12.5 % (20-44); Mean Corpuscular HGB Conc 36 gm/dL (32-36); Mean Corpuscular Hemoglobin 32 pg (26-34); Mean Corpuscular Volume 89 fL (80-100); Monocytes Percent Auto 6.4 % (0.0-11.0); Neutrophils Percent Auto 80.7 % (42.0-72.0); Platelet Count* 205 K/uL (140-440); White Blood Count* 6.72 K/uL (4.50-11.00)
[2023-03-18 13:12] LABS: Slide Review Reflex No
[2023-03-18] MEDS: 0.9 % SODIUM CHLORIDE 1000 ml 1,000 ML IV ×3 (13:18→18:01)
[2023-03-18 13:19] LABS: Troponin, Point-of-Care* 0.01 ng/ml (0.01-0.04)
[2023-03-18 13:22] LABS: Albumin* 4.9 g/dL (3.3-5.0); Chloride* 99 mmol/L (96-114); Potassium* 4.5 mmol/L (3.6-5.1); Sodium* 134 mmol/L (135-149)
[2023-03-18 13:24] LABS: Anion Gap 22 mEq/L (7-15); Aspartate Amino Transferase* 20 U/L (12-35); Bilirubin Total* 1.7 mg/dL (0.1-1.5); Carbon Dioxide* 13 mmol/L (20-32); Creatinine* 1.8 mg/dL (0.5-1.5); Estimated Glomerular Filt Rate 40 ml/min
[2023-03-18 13:25] LABS: Alanine Aminotransferase* 12 U/L (4-50); Alkaline Phosphatase* 81 U/L (40-150); Blood Urea Nitrogen* 21 mg/dL (7-30); Calcium* 10.2 mg/dL (8.4-10.6); Glucose* 290 mg/dL (60-115); Magnesium* 1.6 mg/dL (1.5-2.6); Total Protein* 8.6 g/dL (6.0-8.3)
[2023-03-18 13:27] LABS: Ethanol* < 0.01 % (0.01-0.03)
[2023-03-18 13:52] LABS: PCR FLU A Negative PCR FLU A (Negative); PCR FLU B Negative PCR FLU B (Negative); PCR RSV Negative PCR RSV (Negative)
--- NOTE | 2023-03-18 14:04 | ED.NURSE ---
This nurse checked a rectal core temp at 1350 and temp was 99.0F. Isabel Naylaguerita was taken off patient at this time and he was given two warm blankets for warming because he is dressed in shorts. Pt declined socks at this time.
[2023-03-18 14:10] LABS: SARS PCR* Negative SARS-CoV-2 (Negative)
--- NOTE | 2023-03-18 14:22 | CRLHL7_ITS ---
For Patients: As a result of the Century Cures Act, medical imaging exams and procedure reports are released immediately into your electronic medical record. You may view this report before your referring provider. If you have questions, please contact your health care provider. INDICATION: Right lower quadrant pain with sepsis TECHNIQUE: CT chest, abdomen and pelvis acquired without contrast. COMPARISON: CT chest abdomen pelvis on November 12, 2022 FINDINGS: CHEST: Cardiovascular structures: Heart size is normal. Postsurgical changes of aortic valve repair. Coronary artery stents. Mitral annular calcifications. Thoracic aorta and main pulmonary artery are normal in caliber. Mediastinum and ant: No mass or adenopathy. Lungs and pleura: Lungs and pleural spaces are clear. No suspicious nodules, infiltrates, or effusions. Chest wall and axilla: No mass or adenopathy. Bones: No suspicious bone lesions. Unremarkable for age. ABDOMEN AND PELVIS: Liver: No focal lesions. There are multiple surgical clips along the border of the liver. Gallbladder and bile ducts: Status post cholecystectomy. Pancreas: Fatty atrophy. No ductal dilatation. No peripancreatic inflammatory changes. Spleen: Unremarkable. Adrenal glands: Unremarkable. Kidneys: Slightly atrophic [place] kidneys with similar appearing left renal cyst. Nonspecific perinephric stranding, unchanged compared to prior exam. No renal calculi or hydronephrosis. Right lower quadrant transplant kidney appears within normal limits on this unenhanced exam. GI tract: No evidence of bowel obstruction or inflammation. Small hiatal hernia. The appendix is normal. Extensive colonic diverticulosis without definitive CT evidence of acute diverticulitis. Vascular structures: Abdominal aorta is normal in caliber. Calcific atherosclerosis of the aortoiliac system. Lymph nodes: Unremarkable. Miscellaneous: Unremarkable. No free air or significant free fluid. Pelvic Organs: Not well evaluated secondary to beam hardening artifact. The visualized bladder is within normal limits. The visualized prostate is within normal limits. Large fat containing left inguinal hernia. Likely calcified peritoneal loose body seen within the pelvis to the left of midline (series 2, image 174). Bones: No suspicious bone lesions. No acute fracture or malalignment. Bilateral total hip arthroplasties. IMPRESSION: 1. No unenhanced CT evidence of an acute process involving the chest, abdomen, or pelvis. 2. Incidental findings as detailed above. Please note that all CT scans at this facility use dose modulation, iterative reconstruction, and/or weight-based dosing when appropriate to reduce radiation dose to as low as reasonably achievable. Dictated by Justyn Kinney MD @ 03/18/2023 3:27:46 PM (Electronically Signed)
--- NOTE | 2023-03-18 14:25 | ED.NURSE ---
Pt having difficulty with word-finding. Pt attempted to say something several times and then gestured to his chest, eventually stated, I need Styrofoam. Strike Plate Attacher asked pt if he was having trouble breathing or had chest discomfort, pt denied this. Pt unable to elaborate about what he meant about needing Styrofoam. MD Ch updated about this interaction.
[2023-03-18 14:43] LABS: Creatine Kinase* 32 U/L (54-186)
[2023-03-18] MEDS: PIPERACILLIN/TAZOBACTAM 3.375 GM in 0.9 % SODIUM CHLORIDE Mini-bag 100 ML IVPB ×2 (14:58→21:32)
[2023-03-18] MEDS: LORazepam 2 MG/ML inj 0.25 MG IVP (15:30)
[2023-03-18] MEDS: lidocaine HCL 2 % JELLY (TOP) STERILE 6 ML UR (16:00)
[2023-03-18 16:20] LABS: Appearance Urine Clear (Clear); Bilirubin Urine 2+ (Negative); Blood Urine Trace-intact (Negative); Color Urine Yellow (Yellow); Glucose Urine 1+ (Negative); Ketones Urine 4+ (Negative); Leukocyte Esterase Urine Negative (Negative); Nitrite Urine Negative (Negative); Protein Urine 2+ (Negative); Specific Gravity Urine 1.025 (1.000-1.030); Urobilinogen Urine 0.2 (0.2-1.0); pH Urine 5.5 (5.0-8.5)
--- NOTE | 2023-03-18 16:30 | PC.SOCIAL ---
Addendum entered by UNRULY Rocha 03/18/23 16:40: Received a phone call from Makenna Marquez, [facility], confirming that she still has an APS case open. Makenna is aware that pt has not opened home care services with [facility]. Pt has to complete a sliding fee scale application with [facility] and has not done so, due to not feeling well. Makenna would like to focus on getting the application to pt and having him complete it, so [facility] can get services in the home. Social work will follow up as needed. Original Note: Received information from Catia from [facility] informing that pt refused home health care nursing visits from previous referral that was sent. Phone call to [facility] APS SW, Makenna Marquez. Left voicemail to provide update on home health nursing services and see if she still has an APS case open. Social work will follow up as needed.
[2023-03-18 16:48] LABS: Bacteria Urine Few; Fine Granular Casts Urine Few; RBC Urine 0-2 (0-2); Squamous Epithelial Cell Urine Few (None-Few); WBC Urine 0-2 (0-5)
[2023-03-18 16:55] LABS: HCO3 VBG 16 mmol/L (21-28); PCO2 VBG 23 mmHG (40-50); PO2 VBG 38.8 mmHG (25-47); pH VBG 7.454 (7.32-7.43)
[2023-03-18 17:58] LABS: HCO3 VBG 18 mmol/L (21-28); Lactate* 1.4 mmol/L (0.5-1.9); PCO2 VBG 31 mmHG (40-50); PO2 VBG 41.5 mmHG (25-47); pH VBG 7.364 (7.32-7.43)
[2023-03-18] MEDS: ACETAMINOPHEN 325 MG TABLET 650 MG PO (18:01)
--- NOTE | 2023-03-18 18:14 | PM.IMHP1 ---
Hospitalist- H&P: HPI History of Present Illness Date Seen: 03/18/23 Chief complaint: Nausea, vomiting, RLQ abd pain Narrative: Bari Mora is a 72 year old man chronically immunocompromised due to hepatorenal transplant therapy, recurrent C diff colitis and diarrhea, insulin-dependent diabetes mellitus type 2 on insulin pump, presents with the 2-3 day history of increasing nausea, vomiting, decreased oral intake, weakness. Denies hematemesis. Has had only minimal intake if any over the last day. Being actively treated for C diff colitis and diarrhea at this time. Still has intermittent diarrhea. Denies fevers, rigors, diaphoresis. Denies cough or hemoptysis. He denies recent trauma or injury. He states his brother helps in often on throughout the day. Patient's weakness became so profound that he decided to come in for further assessment. Review of Systems Status of ROS: Reports: 10 or more systems reviewed and unremarkable except as noted in History and below Narrative: He denies chest heaviness, pressure, tightness, or pain. Denies cough, dyspnea, wheezing. While he denies syncope or near-syncope, he acknowledges being too weak to sit up or stand up. He has not been monitoring his blood sugars the last few days. Ran out of insulin about 2 days ago. Administers insulin via insulin pump at home. Acknowledges chronic intermittent bowel and bladder incontinence. Utilizes incontinent products and sometimes is able to help himself and other times he requires help to changes incontinent briefs. Denies hematuria, hematochezia, melena. He denies limb or joint swelling, redness, warmth, or pain. Denies rashes. He denies any focal motor neurologic deficits. Acknowledges generalized weakness. Lives alone. Brother helps with some of his activities in the home. Despite efforts to encourage the patient to receive 24 hour cares the patient has consistently declined such inasmuch as he feels he can. At times he will go to longterm for short period of time with any goes back to his home. Invariably when he returns home he within a very short period of time fails in his efforts to continue to care for himself and once up back in the hospital on account of his inability to care for himself adequately. Denies depression, suicidal thoughts or ideations, anxiety, or intrusive thoughts. Again directs us to speak with his brother in the event that Lito is unable to speak on his own behalf. Appoints his brother's as power of state's attorney should that be required. Requests comfort focus measures only with DNR DNI resuscitation in the event of cardiopulmonary demise. This is not new for the patient. [facility] Medical History Depression ?F32.A - Depression, unspecified (ICD-10) Weight loss ?R63.4 - Abnormal weight loss (ICD-10) Diarrhea ?R19.7 - Diarrhea, unspecified (ICD-10) Chronic right hip pain ?M25.551 - Pain in right hip (ICD-10) ?G89.29 - Other chronic pain (ICD-10) Penile ulcer ?N48.5 - Ulcer of penis (ICD-10) Type 2 diabetes mellitus treated with insulin ?E11.9 - Type 2 diabetes mellitus without complications (ICD-10) ?Z79.4 - MCFP (current) use of insulin (ICD-10) Fall at home ?W19.XXXA - Unspecified fall, initial encounter (ICD-10) ?Y92.009 - Unspecified place in unspecified non-institutional (private) residence as the place of occurrence of the external cause (ICD-10) Elevated uric acid in blood ?E79.0 - Hyperuricemia without signs of inflammatory arthritis and tophaceous disease (ICD-10) Weakness ?R53.1 - Weakness (ICD-10) Elevated bilirubin ?R17 - Unspecified jaundice (ICD-10) Metabolic encephalopathy ?G93.41 - Metabolic encephalopathy (ICD-10) Low back pain ?M54.50 - Low back pain, unspecified (ICD-10) Vitamin D deficiency ?E55.9 - Vitamin D deficiency, unspecified (ICD-10) History of transcatheter aortic valve replacement (TAVR) ?Z95.2 - Presence of prosthetic heart valve (ICD-10) BPH (benign prostatic hyperplasia) ?N40.0 - Benign prostatic hyperplasia without lower urinary tract symptoms (ICD-10) History of non-anemic folic acid deficiency ?Z86.39 - Personal history of other endocrine, nutritional and metabolic disease (ICD-10) History of colonic polyps (05/10/13) ?Z86.010 - Personal history of colonic polyps (ICD-10) Folic acid deficiency (01/22/16) ?E53.8 - Deficiency of other specified B group vitamins (ICD-10) Erectile dysfunction ?N52.9 - Male erectile dysfunction, unspecified (ICD-10) Current moderate episode of major depressive disorder without prior episode (01/14/17) ?F32.1 - Major depressive disorder, single episode, moderate (ICD-10) Controlled substance agreement signed (04/19/18) ?Z79.899 - Other moth exterminator (current) drug therapy (ICD-10) Pancytopenia ?D61.818 - Other pancytopenia (ICD-10) Pain syndrome, chronic ?G89.4 - Chronic pain syndrome (ICD-10) Chronic kidney disease (CKD) ?N18.9 - Chronic kidney disease, unspecified (ICD-10) History of ETOH abuse ?F10.11 - Alcohol abuse, in remission (ICD-10) CHF (congestive heart failure) ?I50.9 - Heart failure, unspecified (ICD-10) Mitral regurgitation ?I34.0 - Nonrheumatic mitral (valve) insufficiency (ICD-10) Diabetic neuropathy ?E11.40 - Type 2 diabetes mellitus with diabetic neuropathy, unspecified (ICD-10) GERD (gastroesophageal reflux disease) ?K21.9 - Gastro-esophageal reflux disease without esophagitis (ICD-10) Hyperlipidemia ?E78.5 - Hyperlipidemia, unspecified (ICD-10) HTN (hypertension) ?I10 - Essential (primary) hypertension (ICD-10) Diverticulosis ?K57.90 - Diverticulosis of intestine, part unspecified, without perforation or abscess without bleeding (ICD-10) Surgical History Liver transplant recipient ?Z94.4 - Liver transplant status (ICD-10) Kidney transplant recipient ?Z94.0 - Kidney transplant status (ICD-10) History of coronary artery stent placement ?Z95.5 - Presence of coronary angioplasty implant and graft (ICD-10) S/P TAVR (transcatheter aortic valve replacement) ?Z95.2 - Presence of prosthetic heart valve (ICD-10) History of liver transplant (07/10/16) ?Z94.4 - Liver transplant status (ICD-10) History of decompression of ulnar nerve (1979) ?Z98.890 - Other specified postprocedural states (ICD-10) History of cataract extraction (2018) ?Z98.49 - Cataract extraction status, unspecified eye (ICD-10) 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) ?Z96.643 - Presence of artificial hip joint, bilateral (ICD-10) History of hip replacement ?Z96.649 - Presence of unspecified artificial hip joint (ICD-10) Hx of hernia repair ?Z98.890 - Other specified postprocedural states (ICD-10) ?Z87.19 - Personal history of other diseases of the digestive system (ICD-10) Family History Father Diabetes Coronary artery disease Sister Diabetes Social History Narrative: He lives in [place]. He lives by himself. He functions independently. He is retired. Remote history of smoking having quit about 20 years ago after a 10 pack year history. 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 Last drank in 2016 What is your current living situation?: I presently have a place to live Problems where you live: no known problems Problems where you live details: NA In the past 12 months, utilities in danger of being shut off: no In past 12 months, lack of transportation kept you from medical appts, meetings, work, or getting things needed for daily living: no In the past 12 mos, have been you worried that your food would run out before you had money to buy more?: never true In the past 12 mos, the food you bought just didn't last and you didn't have money to buy more?: never true Highest level of school completed/degree received: some college, no degree Smoking Status: Former smoker Do you use any of these nicotine containing products: None Second hand tobacco smoke exposure: No How often do you have a drink containing alcohol: never How often do you have six or more drinks on one occasion: Never AUDIT-C Alcohol total score: 0 Non-prescribed substance use: denies use Caffeine: No How often does anyone, including family, friends and others, physically hurt you: never How often does anyone, including family, friends and others, insult or talk down to you: never How often does anyone, including family, friends and others, threaten you with harm: never How often does anyone, including family, friends and others, scream or curse at you: never Little interest or pleasure in doing things: more than half the days Feeling down, depressed, or hopeless: more than half the days service: No Meds Home Medications and Allergies Home Medications Medication Instructions Recorded Confirmed Type aspirin 81 mg tablet,delayed 81 mg PO DAILY 10/22/21 03/18/23 History release (Adult Aspirin Regimen) tacrolimus 0.5 mg capsule, 2 mg PO BID 05/17/22 03/18/23 History immediate-release ferrous sulfate 325 mg (65 mg 325 mg PO DAILY 10/26/22 03/18/23 History iron) tablet tamsulosin 0.4 mg capsule 0.4 mg PO DAILY 10/26/22 03/18/23 History clopidogrel 75 mg tablet 75 mg PO DAILY 11/01/22 03/18/23 History omeprazole 40 mg capsule,delayed 40 mg PO DAILY 01/22/23 03/18/23 History release azathioprine 50 mg tablet 150 mg PO DAILY 03/01/23 03/18/23 History diphenoxylate-atropine 2.5 2 tab PO TID PRN diarrhea 03/01/23 03/18/23 History mg-0.025 mg tablet doxazosin 4 mg tablet 4 mg PO HS 03/01/23 03/18/23 History furosemide 40 mg tablet 40 mg PO DAILY PRN 03/01/23 03/18/23 History sodium bicarbonate 650 mg tablet 1,300 mg PO BID 03/01/23 03/18/23 History Home Medication Comments: Insulin pump. Patient unclear how he uses this at this time. Allergies Allergy/AdvReac Type Severity Reaction Status Date / Time phytonadione (vitamin K1) Allergy Intermediate Unknown Verified 03/01/23 11:00 Exam Narrative: Exam Narrative: I 1st examined the patient in the hospital emergency department. I continue to examine the patient periodically when he is in the medical-surgical unit. He appears ill. No acute distress. Appears tired. Smells strong of ketones. Vision and hearing are grossly normal. Alert and oriented to self, place, in part to time and in part to situation. Cooperative, articulate. He is not able to articulate a lot of the details that culminated in him coming to the hospital emergency department for further assessment. External auditory canals and tympanic membranes are normal. Normal nasal mucosa. Dry buccal mucosa. Dentition in fair repair. Pupils equally round and reactive to light and accommodation. Extraocular muscles are intact. No conjunctival injection or icterus. No head and neck lymphadenopathy. Neck is supple with midline trachea. Lungs are clear to auscultation without wheezing, rhonchi, or rales. Heart tones are tachycardic with regular rhythm normal S1-S2. Abdomen with active bowel sounds, soft with subjective discomfort right lower quadrant without rebound or guarding. Extremities without edema. No focal motor neurologic deficits. Generalized weakness. Skin is warm, dry, intact except for he has erythema in the perineum consistent with Karrie dermatitis as well as incontinence associated dermatitis. No jaundice. No petechiae. No cyanosis. Const: Vital Signs, click to edit/add: Vital Signs - 24 hr 03/18/23 12:43 03/18/23 13:02 03/18/23 13:14 Temperature 95.5 F L Pulse Rate 103 H 105 H Pulse Rate [Left P ulse Oximeter] Pulse Rate [Pulse Oximeter] 105 H Respiratory Rate 28 H Blood Pressure 160/95 H Blood Pressure [Le ft Arm] Blood Pressure [Ri ght Upper Arm] 167/92 H Pulse Oximetry 100 99 99 Oxygen Delivery Me od Room Air 03/18/23 13:15 03/18/23 13:21 03/18/23 13:30 Temperature 95.5 F L Pulse Rate 97 97 Pulse Rate [Left P ulse Oximeter] Pulse Rate [Pulse Oximeter] Respiratory Rate Blood Pressure Blood Pressure [Le ft Arm] Blood Pressure [Ri ght Upper Arm] Pulse Oximetry 99 98 Oxygen Delivery Me thod 03/18/23 13:32 03/18/23 13:45 03/18/23 13:50 Temperature 99.0 F Pulse Rate 98 106 H Pulse Rate [Left P ulse Oximeter] Pulse Rate [Pulse Oximeter] Respiratory Rate Blood Pressure 162/107 H Blood Pressure [Le ft Arm] Blood Pressure [Ri ght Upper Arm] Pulse Oximetry 96 98 Oxygen Delivery Me thod 03/18/23 14:00 03/18/23 14:01 03/18/23 14:02 Temperature Pulse Rate 104 H 102 H 102 H Pulse Rate [Left P ulse Oximeter] Pulse Rate [Pulse Oximeter] Respiratory Rate Blood Pressure 166/90 H Blood Pressure [Le ft Arm] Blood Pressure [Ri ght Upper Arm] Pulse Oximetry 100 100 [facility] 14:15 03/18/23 14:30 03/18/23 14:32 Temperature Pulse Rate 107 H 97 97 Pulse Rate [Left P ulse Oximeter] Pulse Rate [Pulse Oximeter] Respiratory Rate Blood Pressure 152/86 H Blood Pressure [Le ft Arm] Blood Pressure [Ri ght Upper Arm] Pulse Oximetry 100 100 99 [facility] 03/18/23 14:45 03/18/23 15:00 03/18/23 15:02 Temperature Pulse Rate 104 H 100 113 H Pulse Rate [Left P ulse Oximeter] Pulse Rate [Pulse Oximeter] Respiratory Rate Blood Pressure 180/102 H Blood Pressure [Le ft Arm] Blood Pressure [Ri ght Upper Arm] Pulse Oximetry 100 100 99 [facility] 03/18/23 15:03 03/18/23 15:15 03/18/23 15:30 Temperature Pulse Rate 110 H 112 H 90 Pulse Rate [Left P ulse Oximeter] Pulse Rate [Pulse Oximeter] Respiratory Rate Blood Pressure Blood Pressure [Le ft Arm] Blood Pressure [Ri ght Upper Arm] Pulse Oximetry 98 98 98 [facility] 03/18/23 15:31 03/18/23 15:45 03/18/23 16:00 Temperature Pulse Rate 118 H 103 H 106 H Pulse Rate [Left P ulse Oximeter] Pulse Rate [Pulse Oximeter] Respiratory Rate Blood Pressure 162/89 H Blood Pressure [Le ft Arm] Blood Pressure [Ri ght Upper Arm] Pulse Oximetry 99 99 100 [facility] 03/18/23 16:02 03/18/23 16:15 03/18/23 16:30 Temperature Pulse Rate 105 H 101 H 103 H Pulse Rate [Left P ulse Oximeter] Pulse Rate [Pulse Oximeter] Respiratory Rate Blood Pressure 174/94 H Blood Pressure [Le ft Arm] Blood Pressure [Ri ght Upper Arm] Pulse Oximetry 100 99 97 [facility] 03/18/23 16:32 03/18/23 16:45 03/18/23 17:12 Temperature 100.1 F H Pulse Rate 104 H 106 H Pulse Rate [Left P ulse Oximeter] 106 H Pulse Rate [Pulse Oximeter] Respiratory Rate 18 Blood Pressure 176/79 H Blood Pressure [Le ft Arm] 178/95 H Blood Pressure [Ri ght Upper Arm] Pulse Oximetry 99 97 97 Oxygen Delivery Me thod Room Air Hospitalist - H&P: Result Labs Labs: Short CBC 03/18/23 Range/Units 12:57 WBC 6.72 (4.50-11.00) K/uL Hgb 14.9 (13.5-17.5) gm/dL Hct 41.8 (37.0-53.0) % Plt Count 205 (140-440) K/uL BMP 03/18/23 12:57 Sodium 134 L Potassium 4.5 Chloride 99 Carbon Dioxide 13 L BUN 21 Creatinine 1.8 H Glucose 290 H Calcium 10.2 Cardiac Enzymes 03/18/23 Range/Units 12:57 Total Creatine Kinase 32 L (54-186) U/L Liver Function 03/18/23 Range/Units 12:57 Total Bilirubin 1.7 H (0.1-1.5) mg/dL AST 20 (12-35) U/L ALT 12 (4-50) U/L Alkaline Phosphatase 81 (40-150) U/L Albumin 4.9 (3.3-5.0) g/dL Urine 03/18/23 Range/Units 13:00 Urine Color Yellow (Yellow) Urine Appearance Clear (Clear) Urine pH 5.5 (5.0-8.5) Ur Specific [place] 1.025 (1.000-1.030) Urine Protein 2+ A (Negative) Urine Glucose (UA) 1+ A (Negative) Imaging CT Chest/Ab/Pelvis: Attestation: I have reviewed the pertinent imaging results. Radiologist's impression: Pelvic Organs: Not well evaluated secondary to beam hardening artifact. The visualized bladder is within normal limits. The visualized prostate is within normal limits. Large fat containing left inguinal hernia. Likely calcified peritoneal loose body seen within the pelvis to the left of midline (series 2, image 174). Bones: No suspicious bone lesions. No acute fracture or malalignment. Bilateral total hip arthroplasties. IMPRESSION: 1. No unenhanced CT evidence of an acute process involving the chest, abdomen, or pelvis. Assessment and Plan Assessment and plan (1) Diabetic ketoacidosis associated with type 2 diabetes mellitus: Problem comment: - most likely due to the fact that he ran out of insulin 2 days prior to admission on 03/18/2023 - initiate treatment with the normal saline, consider adding potassium and dextrose; will stop his insulin pump which he states there is no insulin in and likely start him on regular insulin drip here shortly, after we obtain results of labs; monitor labs closely including chemistries, kidney function, venous blood gas. Status: Acute (2) Increased anion gap metabolic acidosis: Problem comment: - secondary to diabetic ketoacidosis - Treat the diabetic ketoacidosis Status: Acute (3) Adult failure to thrive: Problem comment: - 03/18/2023: Recommended 1 more time senior care facility level of cares given the inability for him to care for himself safely in his own home, you with help from his brother's he states. - Physical therapy, occupational therapy, rn social services to consult and assist with evaluation and recommendations. Status: Acute (4) Weakness: Problem comment: Acute on chronic. Patient does not want to be in a longterm but struggling to remain independent. Very sedentary. Therapy raises concern about ongoing ability to care for self at home. Cog screens have been declining at each visit. Still has capacity at this time, but may benefit from higher level of care if patient agreeable. [facility] report [facility]. [facility] saw him previously, but they were under the impression that he was agreeable to go home with self-paid home health, which is not the case. Status: Acute (5) Recurrent Clostridioides difficile diarrhea: Problem comment: - This is the 4th documented C diff infection in the past 18 months. Last treated in November 2022. - Improving. Will need long vanco taper over weeks. - Started probiotic. - Gave patient instructions on cleaning house with bleach. - Recommend he establish with GI at [facility] given transplant service is there and this is recurrent infection, will need referral at discharge Status: Acute (6) Liver transplant recipient: Problem comment: Continue anti rejection drugs Status: Chronic (7) Kidney transplant recipient: Problem comment: continue antirejection meds Status: Chronic (8) Weight loss: Problem comment: - Weight is down 20 kg in 4 months. Likely multifactorial. - Appreciate nutrition consult. Patient refused nutritional supplements and snacks. - Treat c diff as above. Add mirtazapine for depression and to increase appetite. Status: Acute (9) Depression: Problem comment: Denies depressive symptoms. Appears apathetic about his circumstances. Decrease citalopram and add mirtazapine. Status: Chronic (10) Physical debility: Problem comment: Chronic. Has not been able to stay independent at home for more than a few weeks. Continue PT and OT, will need PT and OT through outpatient rehab as he is not qualifying as homebound. Status: Chronic (11) Declining functional status: Problem comment: - Unable to transfer and ambulate without assistance on 01/21/2023 - this is a recurrent problem. - s/p multiple prior hospitalizations for management of acute medical problems over the past several months, followed by short term SNF transitional care until he demands to return to his home, then returns home for short period of time before returning to hospital with acute medical problems requiring inpatient hospitalization for stabilization, and the cycle repeats. - PT, OT consulted - SS consult for discharge planning - I again reviewed this dangerous pattern of hospitalization/TCU in SNF/home briefly/re-hospitalization pattern with patient. He has poor insight and/or acceptance of this downward spiraling pattern of his health. Voiced my opinion to him once again that if he is to succeed in safely maintaining his health status for longer periods of time, given his declining physical health and decreased ability to care for himself independently in his home, that he needs a level of care comparable to what he receives when he is in a SNF. - MOCA 22 on 01/24, decreased from 25 in October 2022 - will need ongoing support from PCP - discharged to home with home health services - medication management, therapy Status: Acute (12) Insulin-requiring or dependent type II diabetes mellitus: Problem comment: - ordinarily on insulin pump. Tells me he ran out of insulin 2 days prior to his current presentation on 03/18/2023. Status: Acute Plan 1. Reviewed my impression with the patient as stated above. 2. Check EKG and troponin I . 3. Continue to monitor electrolytes, renal function panel, magnesium, phosphorus closely and adjust interventions as warranted. Will attempt to maintain potassium in the 4-5 mg/dL range . 4. Work toward trying to keep blood sugars in the 140 to 180 range for now. 5. See above for additional plans and recommendations. 6. Patient is agreeable with above stated plans and recommendations.
[2023-03-18 18:41] LABS: Albumin* 4.7 g/dL (3.3-5.0); Chloride* 103 mmol/L (96-114); Potassium* 4.4 mmol/L (3.6-5.1); Sodium* 135 mmol/L (135-149)
[2023-03-18 18:44] LABS: Anion Gap 17 mEq/L (7-15); Blood Urea Nitrogen* 20 mg/dL (7-30); Carbon Dioxide* 15 mmol/L (20-32); Creatinine* 1.6 mg/dL (0.5-1.5); Est. Creatinine Clearance* 47.15; Estimated Glomerular Filt Rate 46 ml/min
[2023-03-18 18:45] LABS: Calcium* 9.4 mg/dL (8.4-10.6); Glucose* 234 mg/dL (60-115); Magnesium* 1.6 mg/dL (1.5-2.6); Phosphorus* 3.4 mg/dL (2.5-4.5)
[2023-03-18 18:57] LABS: Troponin I* 0.02 ng/mL (0.01-0.04)
[2023-03-18] MEDS: INSULIN INF 100 UNIT/100 ML 100 UNIT/100 ML BAG 6.5 UNIT IVPB (19:50)
[2023-03-18] MEDS: 5 % DEX/0.9 SOD CHL+KCL 20 mEq 1,000 ML 125 ML IV (19:52)
--- NOTE | 2023-03-18 20:02 | PC.NURSE ---
Nursing Care Hours: [id number] Pt this shift arrived to unit on stretcher. Ax1 to bed. Pt weak but steady. Alert and oriented and cooperative. See VS. C/o pain to upper abdomen 01/25, with calm behavior. Treated per eMAR. Skin intact, brief dry, Renteria patent. Pt described feeling sick Tuesday this week and because he was not feeling well, he did not restock his insulin and had been out for two days. Pt said he has not eaten all day today. BS at [id number]. Tele started and showing sinus tach. Bolus fluids running.
[2023-03-18] MEDS: LACTOBACILLUS ACIDOPHILUS 1 TABLET 1 TAB PO (20:11)
[2023-03-18 20:23] LABS: HCO3 VBG 19 mmol/L (21-28); PCO2 VBG 35 mmHG (40-50); PO2 VBG 39.9 mmHG (25-47); pH VBG 7.351 (7.32-7.43)
[2023-03-18 20:59] LABS: Chloride* 104 mmol/L (96-114); Potassium* 4.6 mmol/L (3.6-5.1); Sodium* 137 mmol/L (135-149)
[2023-03-18 21:02] LABS: Anion Gap 17 mEq/L (7-15); Blood Urea Nitrogen* 19 mg/dL (7-30); Carbon Dioxide* 16 mmol/L (20-32); Creatinine* 1.5 mg/dL (0.5-1.5); Estimated Glomerular Filt Rate 50 ml/min
[2023-03-18 21:03] LABS: Glucose* 235 mg/dL (60-115); Magnesium* 1.5 mg/dL (1.5-2.6)
[2023-03-18] MEDS: SODIUM CHLORIDE 0.9 % (FLUSH) 10 ML SYRINGE 5 ML IVF (21:33)
[2023-03-18] MEDS: TACROLIMUS 0.5 MG CAPSULE 2 MG PO (21:33)
[2023-03-18] MEDS: DOXAZOSIN 4 MG TABLET PO (21:33)
[2023-03-18] MEDS: CLOTRIMAZOLE 1 % CREAM 1 APPLIC TOPICAL (21:33)
[2023-03-18] MEDS: VANCOMYCIN 125 MG CAPSULE PO (21:34)
[2023-03-18] MEDS: ATORVASTATIN 10 MG TABLET 20 MG PO (21:34)
[2023-03-18] MEDS: ENOXAPARIN 30 MG/0.3ML INJ SUBCUT (21:34)
[2023-03-18] MEDS: SODIUM BICARBONATE 650 MG TABLET 1300 MG PO (21:35)
[2023-03-18 22:04] LABS: Troponin I* 0.02 ng/mL (0.01-0.04)
[2023-03-18 22:36] LABS: HCO3 VBG 23 mmol/L (21-28); PCO2 VBG 37 mmHG (40-50); PO2 VBG 37.3 mmHG (25-47); pH VBG 7.397 (7.32-7.43)
[2023-03-18 22:38] LABS: Lactate* 1.6 mmol/L (0.5-1.9)
[2023-03-18 23:00] LABS: Chloride* 106 mmol/L (96-114); Potassium* 4.2 mmol/L (3.6-5.1); Sodium* 138 mmol/L (135-149)
[2023-03-18 23:02] LABS: Creatinine* 1.4 mg/dL (0.5-1.5); Est. Creatinine Clearance* 53.89; Estimated Glomerular Filt Rate 54 ml/min
[2023-03-18 23:03] LABS: Anion Gap 11 mEq/L (7-15); Blood Urea Nitrogen* 18 mg/dL (7-30); Calcium* 8.8 mg/dL (8.4-10.6); Carbon Dioxide* 21 mmol/L (20-32); Glucose* 117 mg/dL (60-115); Phosphorus* 2.9 mg/dL (2.5-4.5)
[2023-03-18 23:04] LABS: Magnesium* 1.4 mg/dL (1.5-2.6)
[2023-03-19] VITALS (13 sets, daily range): BP systolic 115–174; BP diastolic 78–96; PULSE 91–110; RESP 20–22; TEMP 36.3–37; O2SAT 95–98
[2023-03-19] MEDS: HYDROmorphone 0.5 mg/0.5 ml inj IVP ×2 (00:11→06:35)
[2023-03-19] MEDS: fentaNYL 25 MCG/HR PATCH 1 PATCH TRANSDERMA (00:11)
--- NOTE | 2023-03-19 02:00 | W.PM.TELEPRO ---
Progress Note: A&P Assessment and plan (1) Insulin-requiring or dependent type II diabetes mellitus: Problem details: - ordinarily on insulin pump. Tells me he ran out of insulin 2 days prior to his current presentation on 03/18/2023. Status: Acute Plan Called that --bg have normaliziae. AG closed to 11. Never acidotic. Discontinue insulin drip Start [id number] Ux 1 Medium dose SS aspart Initiate diABETIC -DIET continue POC --Bg hourly for next couple hours to trend. ' Begin ac/hs- POC bg and SS insulin Daytime hospitalist will be able to review his insulin pump settings to determine basal insulin needs. May not be ideal candidate for insulin pump given noncomplience Time Spent With Patient Total time spent: none. chart review and discussion with nursing staff Telehealth Hospitalist-PN: Sub Subjective Interval History: Bari Mora is seen as an Interactive Telehealth visit. Bari Mora is a 72 year old male who is Exam Narrative Exam Narrative: Physical Exam GENERAL: ?vital signs reviewed, well developed and nourished, in no distress HEENT: pupils are equal round and reactive to light, extraocular movements are grossly within normal limits and oral mucosa is moist. NECK: Supple without lymphadenopathy or thyromegaly according to nursing staff examination observation HEART: Regular rate and rhythm without any rubs, murmurs, or gallops. LUNGS: Clear to auscultation bilaterally with good air movement throughout ABDOMEN: Observation from nurse assisted exam, abdomen appears soft, nontender, and nondistended with Positive bowel sounds noted. EXTREMITIES: Strength and sensation is observed to be grossly within normal limits in the upper and lower extremities.? No focal strength deficit is observed. SKIN:? Observed warm and dry with color normal Const Vital Signs, click to edit/add: Vital Signs - 24 hr 03/18/23 12:43 03/18/23 13:02 03/18/23 13:14 Temperature 95.5 F L Pulse Rate 103 H 105 H Pulse Rate [Left Pulse Oximeter] Pulse Rate [Pulse Oximeter] 105 H Respiratory Rate 28 H Blood Pressure 160/95 H Blood Pressure [Left Arm] Blood Pressure [Right Upper Arm] 167/92 H Pulse Oximetry 100 99 99 Oxygen Delivery Method Room Air 03/18/23 13:15 03/18/23 13:21 03/18/23 13:30 Temperature 95.5 F L Pulse Rate 97 97 Pulse Rate [Left Pulse Oximeter] Pulse Rate [Pulse Oximeter] Respiratory Rate Blood Pressure Blood Pressure [Left Arm] Blood Pressure [Right Upper Arm] Pulse Oximetry 99 98 Oxygen Delivery Method 03/18/23 13:32 03/18/23 13:45 03/18/23 13:50 Temperature 99.0 F Pulse Rate 98 106 H Pulse Rate [Left Pulse Oximeter] Pulse Rate [Pulse Oximeter] Respiratory Rate Blood Pressure 162/107 H Blood Pressure [Left Arm] Blood Pressure [Right Upper Arm] Pulse Oximetry 96 98 Oxygen Delivery Method 03/18/23 14:00 03/18/23 14:01 03/18/23 14:02 Temperature Pulse Rate 104 H 102 H 102 H Pulse Rate [Left Pulse Oximeter] Pulse Rate [Pulse Oximeter] Respiratory Rate Blood Pressure 166/90 H Blood Pressure [Left Arm] Blood Pressure [Right Upper Arm] Pulse Oximetry 100 100 100 Oxygen Delivery Method 03/18/23 14:15 03/18/23 14:30 03/18/23 14:32 Temperature Pulse Rate 107 H 97 97 Pulse Rate [Left Pulse Oximeter] Pulse Rate [Pulse Oximeter] Respiratory Rate Blood Pressure 152/86 H Blood Pressure [Left Arm] Blood Pressure [Right Upper Arm] Pulse Oximetry 100 100 99 Oxygen Delivery Method 03/18/23 14:45 03/18/23 15:00 03/18/23 15:02 Temperature Pulse Rate 104 H 100 113 H Pulse Rate [Left Pulse Oximeter] Pulse Rate [Pulse Oximeter] Respiratory Rate Blood Pressure 180/102 H Blood Pressure [Left Arm] Blood Pressure [Right Upper Arm] Pulse Oximetry 100 100 99 Oxygen Delivery Method 03/18/23 15:03 03/18/23 15:15 03/18/23 15:30 Temperature Pulse Rate 110 H 112 H 90 Pulse Rate [Left Pulse Oximeter] Pulse Rate [Pulse Oximeter] Respiratory Rate Blood Pressure Blood Pressure [Left Arm] Blood Pressure [Right Upper Arm] Pulse Oximetry 98 98 98 Oxygen Delivery Method 03/18/23 15:31 03/18/23 15:45 03/18/23 16:00 Temperature Pulse Rate 118 H 103 H 106 H Pulse Rate [Left Pulse Oximeter] Pulse Rate [Pulse Oximeter] Respiratory Rate Blood Pressure 162/89 H Blood Pressure [Left Arm] Blood Pressure [Right Upper Arm] Pulse Oximetry 99 99 100 Oxygen Delivery Method 03/18/23 16:02 03/18/23 16:15 03/18/23 16:30 Temperature Pulse Rate 105 H 101 H 103 H Pulse Rate [Left Pulse Oximeter] Pulse Rate [Pulse Oximeter] Respiratory Rate Blood Pressure 174/94 H Blood Pressure [Left Arm] Blood Pressure [Right Upper Arm] Pulse Oximetry 100 99 97 Oxygen Delivery Method 03/18/23 16:32 03/18/23 16:45 03/18/23 17:12 Temperature 100.1 F H Pulse Rate 104 H 106 H Pulse Rate [Left Pulse Oximeter] 106 H Pulse Rate [Pulse Oximeter] Respiratory Rate 18 Blood Pressure 176/79 H Blood Pressure [Left Arm] 178/95 H Blood Pressure [Right Upper Arm] Pulse Oximetry 99 97 97 Oxygen Delivery Method Room Air 03/18/23 17:18 03/18/23 19:55 03/18/23 20:00 Temperature 97.9 F Pulse Rate 106 H Pulse Rate [Left Pulse Oximeter] 102 H 102 H Pulse Rate [Pulse Oximeter] Respiratory Rate 20 Blood Pressure Blood Pressure [Left Arm] 187/94 H Blood Pressure [Right Upper Arm] Pulse Oximetry 98 Oxygen Delivery Method 03/18/23 20:41 03/18/23 21:49 03/18/23 23:00 Temperature 98.1 F Pulse Rate 104 H Pulse Rate [Left Pulse Oximeter] 102 H Pulse Rate [Pulse Oximeter] Respiratory Rate 22 22 Blood Pressure Blood Pressure [Left Arm] 168/98 H Blood Pressure [Right Upper Arm] Pulse Oximetry 100 97 Oxygen Delivery Method Room Air Room Air 03/19/23 00:00 03/19/23 00:00 03/19/23 00:38 Temperature 98.6 F Pulse Rate 103 H Pulse Rate [Left Pulse Oximeter] 99 103 H Pulse Rate [Pulse Oximeter] Respiratory Rate 22 Blood Pressure Blood Pressure [Left Arm] 164/90 H Blood Pressure [Right Upper Arm] Pulse Oximetry 98 Oxygen Delivery Method Room Air Labs Labs: Laboratory Results - last 24 hr 03/18/23 03/18/23 03/18/23 12:06 12:57 13:00 WBC 6.72 RBC 4.70 Hgb 14.9 Hct 41.8 MCV 89 MCH 32 MCHC 36 RDW Coeff of [place] 14.0 Plt Count 205 Neut % (Auto) 80.7 H Lymph % (Auto) 12.5 L [place] % (Auto) 6.4 Eos % (Auto) 0.0 Baso % (Auto) 0.0 Neut # (Auto) 5.40 Lymph # (Auto) 0.80 L [place] # (Auto) 0.40 Eos # (Auto) 0.00 Baso # (Auto) 0.00 Abs Immat Gran (auto) 0.03 Imm/Tot Granulo (auto) 0.4 VBG pH 7.454 H VBG pCO2 23 L VBG pO2 38.8 VBG HCO3 16 L Sodium 134 L Potassium 4.5 Chloride 99 Carbon Dioxide 13 L Anion Gap 22 H BUN 21 Creatinine 1.8 H Estimated Creat Clear Estimated GFR 40 Glucose 290 H Lactate 2.0 H Calcium 10.2 Phosphorus Magnesium 1.6 Total Bilirubin 1.7 H AST 20 ALT 12 Alkaline Phosphatase 81 Total Creatine Kinase 32 L Troponin I 0.02 Total Protein 8.6 H Albumin 4.9 Urine Color Yellow Urine Appearance Clear Urine pH 5.5 Ur Specific [place] 1.025 Urine Protein 2+ A Urine Glucose (UA) 1+ A Urine Ketones 4+ A Urine Blood Trace-intact A Urine Nitrite Negative Urine Bilirubin 2+ A Urine Urobilinogen 0.2 Ur Leukocyte Esterase Negative Urine RBC 0-2 Urine WBC 0-2 Ur Squamous Epith Cells Few Urine Bacteria Few A Fine Granular Casts Few A Ethyl Alcohol < 0.01 L SARS-CoV-2 (PCR) Influenza Type A (PCR) Influenza Type B (PCR) RSV (PCR) Lab Acknowledgement POC Troponin I 0.01 03/18/23 03/18/23 03/18/23 13:07 13:40 17:32 WBC RBC Hgb Hct MCV MCH MCHC RDW Coeff of [place] Plt Count Neut % (Auto) Lymph % (Auto) [place] % (Auto) Eos % (Auto) Baso % (Auto) Neut # (Auto) Lymph # (Auto) [place] # (Auto) Eos # (Auto) Baso # (Auto) Abs Immat Gran (auto) Imm/Tot Granulo (auto) VBG pH VBG pCO2 VBG pO2 VBG HCO3 Sodium Potassium Chloride Carbon Dioxide Anion Gap BUN Creatinine Estimated Creat Clear Estimated GFR Glucose Lactate Calcium Phosphorus Magnesium Total Bilirubin AST ALT Alkaline Phosphatase Total Creatine Kinase Troponin I Total Protein Albumin Urine Color Urine Appearance Urine pH Ur Specific [place] Urine Protein Urine Glucose (UA) Urine Ketones Urine Blood Urine Nitrite Urine Bilirubin Urine Urobilinogen Ur Leukocyte Esterase Urine RBC Urine WBC Ur Squamous Epith Cells Urine Bacteria Fine Granular Casts Ethyl Alcohol SARS-CoV-2 (PCR) Negative SARS-CoV-2 Influenza Type A (PCR) Negative PCR FLU A Influenza Type B (PCR) Negative PCR FLU B RSV (PCR) Negative PCR RSV Lab Acknowledgement Test Added Test Added POC Troponin I 03/18/23 03/18/23 03/18/23 17:52 20:19 22:34 WBC RBC Hgb Hct MCV MCH MCHC RDW Coeff of [place] Plt Count Neut % (Auto) Lymph % (Auto) [place] % (Auto) Eos % (Auto) Baso % (Auto) Neut # (Auto) Lymph # (Auto) [place] # (Auto) Eos # (Auto) Baso # (Auto) Abs Immat Gran (auto) Imm/Tot Granulo (auto) VBG pH 7.364 7.351 7.397 VBG pCO2 31 L 35 L 37 L VBG pO2 41.5 39.9 37.3 VBG HCO3 18 L 19 L 23 Sodium 135 137 138 Potassium 4.4 4.6 4.2 Chloride 103 104 106 Carbon Dioxide 15 L 16 L 21 Anion Gap 17 H 17 H 11 BUN 20 19 18 Creatinine 1.6 H 1.5 1.4 Estimated Creat Clear 47.15 50.30 53.89 Estimated GFR 46 50 54 Glucose 234 H 235 H 117 H Lactate 1.4 1.6 Calcium 9.4 9.0 8.8 Phosphorus 3.4 2.9 Magnesium 1.6 1.5 1.4 L Total Bilirubin AST ALT Alkaline Phosphatase Total Creatine Kinase Troponin I 0.02 Total Protein Albumin 4.7 Urine Color Urine Appearance Urine pH Ur Specific [place] Urine Protein Urine Glucose (UA) Urine Ketones Urine Blood Urine Nitrite Urine Bilirubin Urine Urobilinogen Ur Leukocyte Esterase Urine RBC Urine WBC Ur Squamous Epith Cells Urine Bacteria Fine Granular Casts Ethyl Alcohol SARS-CoV-2 (PCR) Influenza Type A (PCR) Influenza Type B (PCR) RSV (PCR) Lab Acknowledgement POC Troponin I Telehealth: Statement Statement Telehealth Visit: Today's History and Physical is provided via interactive telehealth by Sea Edward MD.? Patient is located at [facility].? Provider is located at [facility].? Nursing staff assisted with the patient's exam. The visit being done today meets criteria for a telehealth visit and the patient or patient?s parent/guardian is aware the visit is a telehealth visit.
[2023-03-19 02:29] LABS: HCO3 VBG 20 mmol/L (21-28); Lactate* 0.7 mmol/L (0.5-1.9); PCO2 VBG 35 mmHG (40-50); PO2 VBG 42.7 mmHG (25-47); pH VBG 7.367 (7.32-7.43)
[2023-03-19 02:47] LABS: Albumin* 3.9 g/dL (3.3-5.0); Chloride* 108 mmol/L (96-114); Potassium* 4.3 mmol/L (3.6-5.1); Sodium* 137 mmol/L (135-149)
[2023-03-19 02:50] LABS: Anion Gap 11 mEq/L (7-15); Blood Urea Nitrogen* 16 mg/dL (7-30); Calcium* 8.8 mg/dL (8.4-10.6); Carbon Dioxide* 18 mmol/L (20-32); Creatinine* 1.4 mg/dL (0.5-1.5); Est. Creatinine Clearance* 53.89; Estimated Glomerular Filt Rate 54 ml/min; Glucose* 156 mg/dL (60-115); Magnesium* 1.4 mg/dL (1.5-2.6); Phosphorus* 3.1 mg/dL (2.5-4.5)
[2023-03-19] MEDS: 0.9 % SODIUM CHLORIDE 1000 ml 1,000 ML 75 ML IV (02:55)
[2023-03-19] MEDS: PIPERACILLIN/TAZOBACTAM 3.375 GM in 0.9 % SODIUM CHLORIDE Mini-bag 100 ML IVPB ×4 (02:56→20:36)
[2023-03-19] MEDS: INSULIN ASPART 100 UNIT/ML SUBCUT ×4 (05:16→20:39)
--- NOTE | 2023-03-19 05:49 | PC.NURSE ---
[id number]: Patient A&Ox3. Afebrile. PRN Dilaudid x1 for 7/10 abdominal pain. Patient self d/c'd Fentanyl patch. New patch placed per MD order. Denies chest pain/N/V/SOB. [place] patent. Independently T&R in bed. Incontinent of BM. Followed Insulin protocol with verbal modifications from MD. Horizon MD verbally stopped drip at 0100. Continued to check BG hourly and followed up with Dr. Edward. Both long and short acting insulins administered per MD order. Patient with decreased appetite taking only a few sips of water for oral intake.
[2023-03-19] MEDS: OMEPRAZOLE 20 MG CAPSULE DR 40 MG PO (06:27)
[2023-03-19 06:40] LABS: HCO3 VBG 18 mmol/L (21-28); PCO2 VBG 34 mmHG (40-50); PO2 VBG 45.8 mmHG (25-47); pH VBG 7.336 (7.32-7.43)
[2023-03-19 06:45] LABS: Basophils Absolute Auto 0.01 K/uL (0.00-0.30); Basophils Percent Auto 0.1 % (0.0-3.0); Hematocrit 38.9 % (37.0-53.0); Hemoglobin* 13.1 gm/dL (13.5-17.5); Immature Granulocytes Abs Auto 0.02 K/uL (0.00-0.30); Immature Granulocytes Pct Auto 0.3 %; Lymphocytes Percent Auto 10.5 % (20-44); Mean Corpuscular HGB Conc 34 gm/dL (32-36); Mean Corpuscular Hemoglobin 31 pg (26-34); Mean Corpuscular Volume 92 fL (80-100); Neutrophils Percent Auto 82.1 % (42.0-72.0); Platelet Count* 144 K/uL (140-440); RDW Coefficient of Variation % 14.3 % (11.5-15.5); Red Blood Count 4.21 m/uL (4.30-5.90); White Blood Count* 7.14 K/uL (4.50-11.00)
[2023-03-19 06:46] LABS: Slide Review Reflex No
[2023-03-19 07:09] LABS: Creatinine* 1.4 mg/dL (0.5-1.5); Est. Creatinine Clearance* 53.89; Estimated Glomerular Filt Rate 54 ml/min
[2023-03-19 07:10] LABS: Blood Urea Nitrogen* 14 mg/dL (7-30); Calcium* 8.7 mg/dL (8.4-10.6); Carbon Dioxide* 16 mmol/L (20-32); Glucose* 206 mg/dL (60-115); Magnesium* 1.4 mg/dL (1.5-2.6); Phosphorus* 3.3 mg/dL (2.5-4.5)
[2023-03-19 07:21] LABS: Troponin I* 0.02 ng/mL (0.01-0.04)
[2023-03-19 07:57] LABS: Albumin* 3.8 g/dL (3.3-5.0); Anion Gap 14 mEq/L (7-15); Chloride* 107 mmol/L (96-114); Potassium* 4.6 mmol/L (3.6-5.1); Sodium* 137 mmol/L (135-149)
--- NOTE | 2023-03-19 08:04 | PM.IMPN1 ---
Progress Note: A&P Assessment and plan (1) Diabetic ketoacidosis associated with type 2 diabetes mellitus: Problem details: - most likely due to the fact that he ran out of insulin 2 days prior to admission on 03/18/2023 - pH normal, anion gap closed a.m. of 03/19. Insulin drip stopped overnight. -A1c 6.0, blood glucose less than 200 -on NS, blood sugars <200. consider D5 if his appetite poor, blood sugar dropping -levemir 10 units daily; SSI. -adding glucotrol xl Status: Acute (2) Hypothermia: Problem details: -resolved. started on Zosyn with concern for sepsis. vitally stable overnight. cultures are negative. will continue for at least 24 hours. -1st dose 2330 on 03/18 Status: Acute (3) Recurrent Clostridioides difficile diarrhea: Problem details: - recurrent. currently on prolonged oral vanco. no stools to send since arrival 03/18 - Recommend he establish with GI at [facility] given transplant service is there and this is recurrent infection, will need referral at discharge Status: Acute (4) Insulin-requiring or dependent type II diabetes mellitus: Problem details: -ordinarily on insulin pump -insulin has not been refilled since 02/06 by PharmD review -A1C 6.0 -with 30+ lbs of weight loss in the last year, it may mean his insulin requirement is way down and he may not need the pump or could do injections or orals. -will have his brother bring in his pump -start glucotrol 2.5 mg qd Status: Acute (5) Physical debility: Problem details: Chronic. Has not been able to stay independent at home for more than a few weeks. Continue PT and OT, will need PT and OT through outpatient rehab as he is not qualifying as homebound. Status: Chronic (6) Kidney transplant recipient: Problem details: continue antirejection meds Status: Chronic (7) Liver transplant recipient: Problem details: Continue anti rejection drugs Status: Chronic (8) Adult failure to thrive: Problem details: - 03/18/2023: Recommended 1 more time nursing home facility level of cares given the inability for him to care for himself safely in his own home - Physical therapy, occupational therapy, social work case manager to consult and assist with evaluation and recommendations. Status: Acute (9) Hypomagnesemia: Problem details: replace by IV and then IV Status: Acute (10) Pain syndrome, chronic: Problem details: -previous hospitalization placed on fentanyl patch; not compliant with refills by pharmD review -replaced at 25mcg on 03/18. reduced to 12mcg on 03/19. d/c iv dilaudid on 03/19. oral oxy for breakthru. Status: Acute Subjective Date Seen: 03/19/23 Interval history: Daily Progress Note - Hospital Medicine Day #: 2 CC: DKA-resolving, potentially septic however this looks less likely this morning. Chronic weakness and immunosuppression. Chronic C diff. OVERNIGHT UPDATES FROM STAFF & MED, LAB, IMAGING UPDATES Patient is calm, albeit sleepy potentially a little encephalopathic. States he is having some nausea and did not really want to eat breakfast. His anion gap has closed his pH is normal. His lactate has returned to normal. RN Note: [id number]: Patient A&Ox3. Afebrile. PRN Dilaudid x1 for 7/10 abdominal pain. Patient self d/c'd Fentanyl patch. New patch placed per MD order. Denies chest pain/N/V/SOB. Renteria patent. Independently T&R in bed. Incontinent of BM. Followed Insulin protocol with verbal modifications from MD. Horizon MD verbally stopped drip at 0100. Continued to check BG hourly and followed up with Dr. Edward. Both long and short acting insulins administered per MD order. Patient with decreased appetite taking only a few sips of water for oral intake. Afebrile 161/87 -has been as high as 174/96 Pulse rate mildly tachycardic in the low 100s. Currently 105. Respiratory rate 20. Pulse ox 95% Weight 90.8 kilos, last admission 95.4 kilos Blood glucose 192, 28184, 147. A1c 6.0 CBC reveals a normal white blood cell count. Hemoglobin 13.1 platelet count 144 PH this morning 7.3 Magnesium remains low at 1.4 Anion gap 14. CO2 16. C reactive protein 2.0 Troponin undetectable 2 blood cultures pending, negative to date Urine culture pending Objective: tired, disshelved. Vitals: see above Lungs: Clear. Cardiac: S1S2. Disposition/Potential discharge - Likely to return to previous living situation. Today I spent 50minutes seeing the patient, reviewing [facility] and [facility] notes/diagnostics, discussing the care plan with our care time that includes social work, PT/OT, pharmacy, RT, nursing home and documenting my impressions and plan in the medical record. Exam Const: Vital Signs, click to edit/add: Vital Signs - 24 hr 03/18/23 12:43 03/18/23 13:02 03/18/23 13:14 Temperature 95.5 F L Pulse Rate 103 H 105 H Pulse Rate [Left P ulse Oximeter] Pulse Rate [Pulse Oximeter] 105 H Respiratory Rate 28 H Blood Pressure 160/95 H Blood Pressure [Le ft Arm] Blood Pressure [Ri ght Upper Arm] 167/92 H Pulse Oximetry 100 99 99 Oxygen Delivery Me thod Room Air 03/18/23 13:15 03/18/23 13:21 03/18/23 13:30 Temperature 95.5 F L Pulse Rate 97 97 Pulse Rate [Left P ulse Oximeter] Pulse Rate [Pulse Oximeter] Respiratory Rate Blood Pressure Blood Pressure [Le ft Arm] Blood Pressure [Ri ght Upper Arm] Pulse Oximetry 99 98 Oxygen Delivery Me thod 03/18/23 13:32 03/18/23 13:45 03/18/23 13:50 Temperature 99.0 F Pulse Rate 98 106 H Pulse Rate [Left P ulse Oximeter] Pulse Rate [Pulse Oximeter] Respiratory Rate Blood Pressure 162/107 H Blood Pressure [Le ft Arm] Blood Pressure [Ri ght Upper Arm] Pulse Oximetry 96 98 Oxygen Delivery Me thod 03/18/23 14:00 03/18/23 14:01 03/18/23 14:02 Temperature Pulse Rate 104 H 102 H 102 H Pulse Rate [Left P ulse Oximeter] Pulse Rate [Pulse Oximeter] Respiratory Rate Blood Pressure 166/90 H Blood Pressure [Le ft Arm] Blood Pressure [Ri ght Upper Arm] Pulse Oximetry 100 100 100 Oxygen Delivery Me thod 03/18/23 14:15 03/18/23 14:30 03/18/23 14:32 Temperature Pulse Rate 107 H 97 97 Pulse Rate [Left P ulse Oximeter] Pulse Rate [Pulse Oximeter] Respiratory Rate Blood Pressure 152/86 H Blood Pressure [Le ft Arm] Blood Pressure [Ri ght Upper Arm] Pulse Oximetry 100 100 99 Oxygen Delivery Me thod 03/18/23 14:45 03/18/23 15:00 03/18/23 15:02 Temperature Pulse Rate 104 H 100 113 H Pulse Rate [Left P ulse Oximeter] Pulse Rate [Pulse Oximeter] Respiratory Rate Blood Pressure 180/102 H Blood Pressure [Le ft Arm] Blood Pressure [Ri ght Upper Arm] Pulse Oximetry 100 100 99 Oxygen Delivery Me thod 03/18/23 15:03 03/18/23 15:15 03/18/23 15:30 Temperature Pulse Rate 110 H 112 H 90 Pulse Rate [Left P ulse Oximeter] Pulse Rate [Pulse Oximeter] Respiratory Rate Blood Pressure Blood Pressure [Le ft Arm] Blood Pressure [Ri ght Upper Arm] Pulse Oximetry 98 98 [facility] 03/18/23 15:31 03/18/23 15:45 03/18/23 16:00 Temperature Pulse Rate 118 H 103 H 106 H Pulse Rate [Left P ulse Oximeter] Pulse Rate [Pulse Oximeter] Respiratory Rate Blood Pressure 162/89 H Blood Pressure [Le ft Arm] Blood Pressure [Ri ght Upper Arm] Pulse Oximetry 99 99 [facility] 03/18/23 16:02 03/18/23 16:15 03/18/23 16:30 Temperature Pulse Rate 105 H 101 H 103 H Pulse Rate [Left P ulse Oximeter] Pulse Rate [Pulse Oximeter] Respiratory Rate Blood Pressure 174/94 H Blood Pressure [Le ft Arm] Blood Pressure [Ri ght Upper Arm] Pulse Oximetry 100 99 97 [facility] 03/18/23 16:32 03/18/23 16:45 03/18/23 17:12 Temperature 100.1 F H Pulse Rate 104 H 106 H Pulse Rate [Left P ulse Oximeter] 106 H Pulse Rate [Pulse Oximeter] Respiratory Rate 18 Blood Pressure 176/79 H Blood Pressure [Le ft Arm] 178/95 H Blood Pressure [Ri ght Upper Arm] Pulse Oximetry 99 97 97 [facility] 03/18/23 17:18 03/18/23 19:55 03/18/23 20:00 Temperature 97.9 F Pulse Rate 106 H Pulse Rate [Left P ulse Oximeter] 102 H 102 H Pulse Rate [Pulse Oximeter] Respiratory Rate 20 Blood Pressure Blood Pressure [Le ft Arm] 187/94 H Blood Pressure [Ri ght Upper Arm] Pulse Oximetry 98 Oxygen Delivery Me thod 03/18/23 20:41 03/18/23 21:49 03/18/23 23:00 Temperature 98.1 F Pulse Rate 104 H Pulse Rate [Left P ulse Oximeter] 102 H Pulse Rate [Pulse Oximeter] Respiratory Rate 22 22 Blood Pressure Blood Pressure [Le ft Arm] 168/98 H Blood Pressure [Ri ght Upper Arm] Pulse Oximetry 100 97 Oxygen Delivery Me thod Room Air Room Air 03/19/23 00:00 03/19/23 00:00 03/19/23 00:38 Temperature 98.6 F Pulse Rate 103 H Pulse Rate [Left P ulse Oximeter] 99 103 H Pulse Rate [Pulse Oximeter] Respiratory Rate 22 Blood Pressure Blood Pressure [Le ft Arm] 164/90 H Blood Pressure [Ri ght Upper Arm] Pulse Oximetry 98 Oxygen Delivery Me thod Room Air 03/19/23 02:06 03/19/23 03:00 03/19/23 03:00 Temperature 97.7 F Pulse Rate 96 Pulse Rate [Left P ulse Oximeter] 97 103 H Pulse Rate [Pulse Oximeter] Respiratory Rate 20 Blood Pressure Blood Pressure [Le ft Arm] 161/84 H Blood Pressure [Ri ght Upper Arm] Pulse Oximetry 98 Oxygen Delivery Me thod Room Air 03/19/23 04:00 03/19/23 06:00 03/19/23 07:00 Temperature 98.1 F 97.5 F L Pulse Rate Pulse Rate [Left P ulse Oximeter] 103 H 110 H 105 H Pulse Rate [Pulse Oximeter] Respiratory Rate 20 20 20 Blood Pressure Blood Pressure [Le ft Arm] 174/93 H 171/96 H Blood Pressure [Ri ght Upper Arm] Pulse Oximetry 95 97 Oxygen Delivery Me thod Room Air Room Air 03/19/23 07:00 03/19/23 07:00 03/19/23 07:40 Temperature 98.1 F Pulse Rate 104 H Pulse Rate [Left P ulse Oximeter] 105 H Pulse Rate [Pulse Oximeter] Respiratory Rate 20 20 Blood Pressure Blood Pressure [Le ft Arm] 161/87 H Blood Pressure [Ri ght Upper Arm] Pulse Oximetry 95 95 Oxygen Delivery Me thod Room Air Room Air Labs Labs: Laboratory Results - last 24 hr 03/18/23 03/18/23 03/18/23 12:06 12:57 13:00 WBC 6.72 RBC 4.70 Hgb 14.9 Hct 41.8 MCV 89 MCH 32 MCHC 36 RDW Coeff of [place] 14.0 Plt Count 205 Neut % (Auto) 80.7 H Lymph % (Auto) 12.5 L [place] % (Auto) 6.4 Eos % (Auto) 0.0 Baso % (Auto) 0.0 Neut # (Auto) 5.40 Lymph # (Auto) 0.80 L [place] # (Auto) 0.40 Eos # (Auto) 0.00 Baso # (Auto) 0.00 Abs Immat Gran (auto) 0.03 Imm/Tot Granulo (auto) 0.4 VBG pH 7.454 H VBG pCO2 23 L VBG pO2 38.8 VBG HCO3 16 L Sodium 134 L Potassium 4.5 Chloride 99 Carbon Dioxide 13 L Anion Gap 22 H BUN 21 Creatinine 1.8 H Estimated Creat Clear Estimated GFR 40 Glucose 290 H Hemoglobin A1c Lactate 2.0 H Calcium 10.2 Phosphorus Magnesium 1.6 Total Bilirubin 1.7 H AST 20 ALT 12 Alkaline Phosphatase 81 Total Creatine Kinase 32 L Troponin I 0.02 C-Reactive Protein Total Protein 8.6 H Albumin 4.9 Urine Color Yellow Urine Appearance Clear Urine pH 5.5 Ur Specific [place] 1.025 Urine Protein 2+ A Urine Glucose (UA) 1+ A Urine Ketones 4+ A Urine Blood Trace-intact A Urine Nitrite Negative Urine Bilirubin 2+ A Urine Urobilinogen 0.2 Ur Leukocyte Esterase Negative Urine RBC 0-2 Urine WBC 0-2 Ur Squamous Epith Cells Few Urine Bacteria Few A Fine Granular Casts Few A Ethyl Alcohol < 0.01 L SARS-CoV-2 (PCR) Influenza Type A (PCR) Influenza Type B (PCR) RSV (PCR) Lab Acknowledgement POC Troponin I 0.01 03/18/23 03/18/23 03/18/23 13:07 13:40 17:32 WBC RBC Hgb Hct MCV MCH MCHC RDW Coeff of [place] Plt Count Neut % (Auto) Lymph % (Auto) [place] % (Auto) Eos % (Auto) Baso % (Auto) Neut # (Auto) Lymph # (Auto) [place] # (Auto) Eos # (Auto) Baso # (Auto) Abs Immat Gran (auto) Imm/Tot Granulo (auto) VBG pH VBG pCO2 VBG pO2 VBG HCO3 Sodium Potassium Chloride Carbon Dioxide Anion Gap BUN Creatinine Estimated Creat Clear Estimated GFR Glucose Hemoglobin A1c Lactate Calcium Phosphorus Magnesium Total Bilirubin AST ALT Alkaline Phosphatase Total Creatine Kinase Troponin I C-Reactive Protein Total Protein Albumin Urine Color Urine Appearance Urine pH Ur Specific [place] Urine Protein Urine Glucose (UA) Urine Ketones Urine Blood Urine Nitrite Urine Bilirubin Urine Urobilinogen Ur Leukocyte Esterase Urine RBC Urine WBC Ur Squamous Epith Cells Urine Bacteria Fine Granular Casts Ethyl Alcohol SARS-CoV-2 (PCR) Negative SARS-CoV-2 Influenza Type A (PCR) Negative PCR FLU A Influenza Type B (PCR) Negative PCR FLU B RSV (PCR) Negative PCR RSV Lab Acknowledgement Test Added Test Added POC Troponin I 03/18/23 03/18/23 03/18/23 17:52 20:19 22:34 WBC RBC Hgb Hct MCV MCH MCHC RDW Coeff of [place] Plt Count Neut % (Auto) Lymph % (Auto) [place] % (Auto) Eos % (Auto) Baso % (Auto) Neut # (Auto) Lymph # (Auto) [place] # (Auto) Eos # (Auto) Baso # (Auto) Abs Immat Gran (auto) Imm/Tot Granulo (auto) VBG pH 7.364 7.351 7.397 VBG pCO2 31 L 35 L 37 L VBG pO2 41.5 39.9 37.3 VBG HCO3 18 L 19 L 23 Sodium 135 137 138 Potassium 4.4 4.6 4.2 Chloride 103 104 106 Carbon Dioxide 15 L 16 L 21 Anion Gap 17 H 17 H 11 BUN 20 19 18 Creatinine 1.6 H 1.5 1.4 Estimated Creat Clear 47.15 50.30 53.89 Estimated GFR 46 50 54 Glucose 234 H 235 H 117 H Hemoglobin A1c Lactate 1.4 1.6 Calcium 9.4 9.0 8.8 Phosphorus 3.4 2.9 Magnesium 1.6 1.5 1.4 L Total Bilirubin AST ALT Alkaline Phosphatase Total Creatine Kinase Troponin I 0.02 C-Reactive Protein Total Protein Albumin 4.7 Urine Color Urine Appearance Urine pH Ur Specific [place] Urine Protein Urine Glucose (UA) Urine Ketones Urine Blood Urine Nitrite Urine Bilirubin Urine Urobilinogen Ur Leukocyte Esterase Urine RBC Urine WBC Ur Squamous Epith Cells Urine Bacteria Fine Granular Casts Ethyl Alcohol SARS-CoV-2 (PCR) Influenza Type A (PCR) Influenza Type B (PCR) RSV (PCR) Lab Acknowledgement POC Troponin I 03/19/23 03/19/23 02:20 06:20 WBC 7.14 RBC 4.21 L Hgb 13.1 L Hct 38.9 MCV 92 MCH 31 MCHC 34 RDW Coeff of [place] 14.3 Plt Count 144 Neut % (Auto) 82.1 H Lymph % (Auto) 10.5 L [place] % (Auto) 7.0 Eos % (Auto) 0.0 Baso % (Auto) 0.1 Neut # (Auto) 5.90 Lymph # (Auto) 0.70 L [place] # (Auto) 0.50 Eos # (Auto) 0.00 Baso # (Auto) 0.01 Abs Immat Gran (auto) 0.02 Imm/Tot Granulo (auto) 0.3 VBG pH 7.367 7.336 VBG pCO2 35 L 34 L VBG pO2 42.7 45.8 VBG HCO3 20 L 18 L Sodium 137 137 Potassium 4.3 4.6 Chloride 108 107 Carbon Dioxide 18 L 16 L Anion Gap 11 14 BUN 16 14 Creatinine 1.4 1.4 Estimated Creat Clear 53.89 53.89 Estimated GFR 54 54 Glucose 156 H 206 H Hemoglobin A1c 6.0 H Lactate 0.7 Calcium 8.8 8.7 Phosphorus 3.1 3.3 Magnesium 1.4 L 1.4 L Total Bilirubin AST ALT Alkaline Phosphatase Total Creatine Kinase Troponin I 0.02 C-Reactive Protein 2.0 H Total Protein Albumin 3.9 3.8 Urine Color Urine Appearance Urine pH Ur Specific [place] Urine Protein Urine Glucose (UA) Urine Ketones Urine Blood Urine Nitrite Urine Bilirubin Urine Urobilinogen Ur Leukocyte Esterase Urine RBC Urine WBC Ur Squamous Epith Cells Urine Bacteria Fine Granular Casts Ethyl Alcohol SARS-CoV-2 (PCR) Influenza Type A (PCR) Influenza Type B (PCR) RSV (PCR) Lab Acknowledgement POC Troponin I
[2023-03-19] MEDS: azaTHIOprine 50 MG TABLET 150 MG PO (08:40)
[2023-03-19] MEDS: CITALOPRAM HYDROBROMIDE 20 MG TABLET 40 MG PO (08:40)
[2023-03-19] MEDS: LACTOBACILLUS ACIDOPHILUS 1 TABLET 1 TAB PO ×3 (08:40→17:29)
[2023-03-19] MEDS: TAMSULOSIN HCL 0.4 MG CAPSULE PO (08:41)
[2023-03-19] MEDS: CLOPIDOGREL 75 MG TABLET PO (08:41)
[2023-03-19] MEDS: SODIUM BICARBONATE 650 MG TABLET 1300 MG PO ×2 (08:41→20:38)
[2023-03-19] MEDS: VANCOMYCIN 125 MG CAPSULE PO ×4 (08:41→20:38)
[2023-03-19] MEDS: FERROUS SULFATE 325 MG TABLET PO (08:41)
[2023-03-19] MEDS: ASPIRIN 81 MG TABLET EC PO (08:41)
[2023-03-19] MEDS: TACROLIMUS 0.5 MG CAPSULE 2 MG PO ×2 (08:42→20:38)
[2023-03-19] MEDS: CLOTRIMAZOLE 1 % CREAM 1 APPLIC TOPICAL ×2 (08:42→20:37)
[2023-03-19] MEDS: SODIUM CHLORIDE 0.9 % (FLUSH) 10 ML SYRINGE 5 ML IVF ×2 (08:43→20:37)
[2023-03-19] MEDS: OXYCODONE 5 MG TABLET PO ×2 (08:56→17:35)
[2023-03-19] MEDS: ACETAMINOPHEN 325 MG TABLET 650 MG PO ×2 (08:56→17:35)
[2023-03-19] MEDS: glipiZIDE 5 MG TABLET 2.5 MG PO (09:40)
[2023-03-19] MEDS: fentaNYL 12 mcg/hr PATCH 1 PATCH TRANSDERMA (09:41)
[2023-03-19] MEDS: MAGNESIUM IV 4 GM/100 ML PIGGYBACK IVPB (09:59)
[2023-03-19] MEDS: 0.9 % SODIUM CHLORIDE 500 ML 500 ML IV (12:11)
[2023-03-19] MEDS: 0.9 % SODIUM CHLORIDE 1000 ml 1,000 ML 150 ML IV ×2 (12:15→21:29)
--- NOTE | 2023-03-19 18:20 | PC.NURSE ---
Patient off unit at 0900. Patient not motivated to get out of bed and sit in chair. PT and OT tried to work with patient and will try again tomorrow. Renteria patent and draining dark isa colored urine, notified and a 500cc bolus ordered and NS increased to 150mls/hr. Patients blood sugar 192,177, 192, 183 and 150. sliding scale used see eMAR. Patient states he does not have much of an appetite. Rn encouraged patient to eat and drink fluids. Fentanyl patch dose decreased and a new patch was applied to outer left shoulder. Patient on oral vanco for chronic C-Diff, tolerating well. No BM today. Patient sating 97% on RA, afebrile this shift, c/o pain everywhere PRN oxy and Tylenol used. see eMAR. Patient on Tele, NSR w/PVC's.
[2023-03-19] MEDS: MAGNESIUM OXIDE 400 MG TABLET PO (20:38)
[2023-03-19] MEDS: ENOXAPARIN 30 MG/0.3ML INJ SUBCUT (20:38)
[2023-03-19] MEDS: ATORVASTATIN 10 MG TABLET 20 MG PO (20:38)
[2023-03-19] MEDS: DOXAZOSIN 4 MG TABLET PO (20:38)
[2023-03-20] VITALS (7 sets, daily range): BP systolic 125–185; BP diastolic 75–99; PULSE 70–112; RESP 18–20; TEMP 36.2–36.9; O2SAT 98–100
[2023-03-20] MEDS: PIPERACILLIN/TAZOBACTAM 3.375 GM in 0.9 % SODIUM CHLORIDE Mini-bag 100 ML IVPB (02:31)
[2023-03-20] MEDS: 0.9 % SODIUM CHLORIDE 1000 ml 1,000 ML 150 ML IV ×3 (04:04→20:11)
[2023-03-20] MEDS: OMEPRAZOLE 20 MG CAPSULE DR 40 MG PO (06:03)
--- NOTE | 2023-03-20 06:32 | PC.NURSE ---
[id number]: Patient fatigued and sleepy. Incontinent BM x1. Ambulated to sink to wash hands and brush teeth after strong encouragement from the nurse. Also stood for a standing scale wt. Renteria draining pink-tinged urine. Patient lacks motivation and requires frequent reminders of encouragement to T&R and ambulate. Denies pain. Fentanyl patch present to L. shoulder. Afebrile.
[2023-03-20 06:51] LABS: HCO3 VBG 21 mmol/L (21-28); Ionized Calcium* 1.14 mmol/L (1.11-1.30); PCO2 VBG 35 mmHG (40-50); PO2 VBG 58.3 mmHG (25-47); pH VBG 7.379 (7.32-7.43)
[2023-03-20 07:06] LABS: Hematocrit 35.4 % (37.0-53.0); Mean Corpuscular HGB Conc 34 gm/dL (32-36); Mean Corpuscular Hemoglobin 31 pg (26-34); Mean Corpuscular Volume 92 fL (80-100); Platelet Count* 114 K/uL (140-440); Red Blood Count 3.83 m/uL (4.30-5.90); White Blood Count* 4.26 K/uL (4.50-11.00)
[2023-03-20 07:08] LABS: Slide Review Reflex No
[2023-03-20] MEDS: glipiZIDE 5 MG TABLET 2.5 MG PO (08:22)
[2023-03-20] MEDS: LACTOBACILLUS ACIDOPHILUS 1 TABLET 1 TAB PO ×3 (08:22→17:21)
--- NOTE | 2023-03-20 08:23 | P.IMPN_ITS ---
Progress Note: A&P Assessment and plan (1) Lactic acidosis: Problem details: -initially called this DKA but I think it was chronic medical issues, poor PO intake and increased lactate in a diabetic. He is not showing us dependence on insulin and his A1C was normal. He had elevated lactate and increased GAP without a pH drop or hyperglycemia. -resolved -no insulin currently - still getting fluids as his PO intake is poor Status: Acute (2) Hypothermia: Problem details: -resolved. started on Zosyn with concern for sepsis. vitally stable overnight. cultures are negative. will continue for at least 24 hours. -1st dose 2330 on 03/18 Status: Acute (3) Recurrent Clostridioides difficile diarrhea: Problem details: - recurrent. currently on prolonged oral vanco. pos here on 03/20. contact precautions. - Recommend he establish with GI at [facility] given transplant service is there and this is recurrent infection, will need referral at discharge Status: Acute (4) Insulin-requiring or dependent type II diabetes mellitus: Problem details: -ordinarily on insulin pump -insulin has not been refilled since 02/06 by PharmD review -A1C 6.0 -with 30+ lbs of weight loss in the last year, it may mean his insulin requirement is way down and he may not need the pump or could do injections or orals. -will have his brother bring in his pump -start glucotrol 2.5 mg qd Status: Acute (5) Physical debility: Problem details: Chronic. Has not been able to stay independent at home for more than a few weeks. Continue PT and OT, will need PT and OT through outpatient rehab as he is not qualifying as homebound. Status: Chronic (6) Kidney transplant recipient: Problem details: continue antirejection meds Status: Chronic (7) Liver transplant recipient: Problem details: Continue anti rejection drugs Status: Chronic (8) Adult failure to thrive: Problem details: - 03/18/2023: Recommended 1 more time senior living facility level of cares given the inability for him to care for himself safely in his own home - Physical therapy, occupational therapy, social media community manager to consult and assist with evaluation and recommendations. Status: Acute (9) Hypomagnesemia: Problem details: replace by IV and then IV Status: Acute (10) Pain syndrome, chronic: Problem details: -previous hospitalization placed on fentanyl patch; not compliant with refills by pharmD review -replaced at 25mcg on 03/18. reduced to 12mcg on 03/19. d/c iv dilaudid on 03/19. oral oxy for breakthru. d/c fentanyl due to sedation on 03/20/23 Status: Acute Subjective Date Seen: 03/20/23 Interval history: Daily Progress Note - Hospital #: 3 CC: DKA-resolving, potentially septic however this looks less likely this morning. Chronic weakness and immunosuppression. Chronic C diff. OVERNIGHT UPDATES FROM STAFF & MED, LAB, IMAGING UPDATES He feels better. less pain. still no appetite. Renteria is out - walking to the bathroom with SBA. fentanyl patch is out. all insulin is on hold. still getting fluids. Stopped Zosyn. RN note: [id number]: Patient fatigued and sleepy. Incontinent BM x1. Ambulated to sink to wash hands and brush teeth after strong encouragement from the nurse. Also stood for a standing scale wt. Renteria draining pink-tinged urine. Patient lacks motivation and requires frequent reminders of encouragement to T&R and ambulate. Denies pain. Fentanyl patch present to L. shoulder. Afebrile. 162/99, pulse 94, resp is 18, afebrile, 99% on room air 92.76 kilos, down 90.8 CBC really unremarkable, about his baseline PH stable Electrolytes are stable, magnesium up to 2.0 Hemoglobin A1c 6.0 CRP down trended Blood cultures and urine culture negative today Objective: tired, disshelved. Vitals: see above Lungs: Clear. Cardiac: S1S2. Disposition/Potential discharge - Likely to return to previous living situation. Today I spent 50minutes seeing the patient, reviewing [facility] and [employer] note s/diagnostics, discussing the care plan with our care time that includes social work, PT/OT, pharmacy, RT, senior living and documenting my impressions and plan in the medical record. Exam Const: Vital Signs, click to edit/add: Vital Signs - 24 hr 03/19/23 10:59 03/19/23 15:00 03/19/23 15:00 Temperature 97.3 F L Pulse Rate Pulse Rate [Left P ulse Oximeter] 96 100 Respiratory Rate 20 20 20 Blood Pressure [Le ft Arm] 131/79 Pulse Oximetry 95 97 Oxygen Delivery Me thod Room Air Room Air 03/19/23 15:00 03/19/23 15:00 03/19/23 20:33 Temperature 97.6 F 97.7 F Pulse Rate 97 Pulse Rate [Left P ulse Oximeter] 100 101 H Respiratory Rate 20 20 Blood Pressure [Le ft Arm] 142/85 H 138/78 Pulse Oximetry 97 95 Oxygen Delivery Me thod Room Air Room Air 03/19/23 23:41 03/19/23 23:45 03/20/23 00:00 Temperature 97.6 F Pulse Rate 97 Pulse Rate [Left P ulse Oximeter] 91 Respiratory Rate 20 20 Blood Pressure [Le ft Arm] 115/82 Pulse Oximetry 98 98 Oxygen Delivery Me thod Room Air Room Air 03/20/23 02:34 Temperature 97.5 F L Pulse Rate Pulse Rate [Left P ulse Oximeter] 94 Respiratory Rate 18 Blood Pressure [Le ft Arm] 162/99 H Pulse Oximetry 99 Oxygen Delivery Me thod Room Air Labs Labs: Laboratory Results - last 24 hr 03/20/23 06:23 WBC 4.26 L RBC 3.83 L Hgb 12.0 L Hct 35.4 L MCV 92 MCH 31 MCHC 34 Plt Count 114 L VBG pH 7.379 VBG pCO2 35 L VBG pO2 58.3 H VBG HCO3 21 Sodium 135 Potassium 3.9 Chloride 108 Carbon Dioxide 18 L Anion Gap 9 BUN 10 Creatinine 1.2 Estimated Creat Clear 62.87 Estimated GFR 65 Glucose 154 H Calcium 8.3 L Ionized Calcium [place] 1.14 Magnesium 2.0 Total Bilirubin 0.9 AST 15 ALT 6 Alkaline Phosphatase 56 C-Reactive Protein 2.2 H Total Protein 6.2 Albumin 3.3
[2023-03-20] MEDS: ASPIRIN 81 MG TABLET EC PO (08:42)
[2023-03-20] MEDS: TACROLIMUS 0.5 MG CAPSULE 2 MG PO ×2 (08:43→20:13)
[2023-03-20] MEDS: TAMSULOSIN HCL 0.4 MG CAPSULE PO (08:43)
[2023-03-20] MEDS: MAGNESIUM OXIDE 400 MG TABLET PO ×2 (08:43→20:10)
[2023-03-20] MEDS: CLOTRIMAZOLE 1 % CREAM 1 APPLIC TOPICAL ×2 (08:43→20:12)
[2023-03-20] MEDS: FERROUS SULFATE 325 MG TABLET PO (08:43)
[2023-03-20] MEDS: azaTHIOprine 50 MG TABLET 150 MG PO (08:43)
[2023-03-20] MEDS: CLOPIDOGREL 75 MG TABLET PO (08:43)
[2023-03-20] MEDS: VANCOMYCIN 125 MG CAPSULE PO ×4 (08:43→20:11)
[2023-03-20] MEDS: SODIUM BICARBONATE 650 MG TABLET 1300 MG PO ×2 (08:43→20:11)
[2023-03-20] MEDS: CITALOPRAM HYDROBROMIDE 20 MG TABLET 40 MG PO (08:43)
[2023-03-20] MEDS: SODIUM CHLORIDE 0.9 % (FLUSH) 10 ML SYRINGE 5 ML IVF ×2 (08:53→22:03)
[2023-03-20 11:32] LABS: CDIFFEPI 027 PRESUMPTIVE NEGATIVE (Negative)
[2023-03-20 11:36] LABS: C.Difficile POSITIVE (Negative)
[2023-03-20 14:27] LABS: Creatine Kinase* 38 U/L (54-186)
[2023-03-20] MEDS: METOPROLOL SUCCINATE (XL) 25 MG TAB PO (15:21)
--- NOTE | 2023-03-20 18:40 | PC.NURSE ---
End of shift: Patient is unmotivated to get up, unmotivated to go to bathroom and needs constant reminders and encouragement to go to bathroom, patient is incontinent of Bowel and bladder. Bed and linens changed Q3x today as a result. BG 145, 154, 136. No sliding scale used. Patient does not have much of an appetite. Naps for more than one hour throughout the day. Stool sample came back positive for C-Diff. 3 loose stools in brief and toilet today. Tele has been DC'd. BP elevated throughout the day. notified and Metoprolol ordered and administered. Renteria removed at 1000, patient did not want it removed because he did not want to walk to bathroom. Fentanyl patch from left shoulder removed and DC'd. IV in left AC patent and running NS at 150 mls/hr. Patient encouraged to ambulate and get up to chair for meals.
[2023-03-20] MEDS: GABAPENTIN 100 MG CAPSULE PO (20:10)
[2023-03-20] MEDS: ENOXAPARIN 30 MG/0.3ML INJ SUBCUT (20:10)
[2023-03-20] MEDS: ATORVASTATIN 10 MG TABLET 20 MG PO (20:10)
[2023-03-20] MEDS: DOXAZOSIN 4 MG TABLET PO (20:13)
[2023-03-20] MEDS: INSULIN ASPART 100 UNIT/ML SUBCUT (22:02)
[2023-03-20] MEDS: DIPHENOXYLATE-ATROP 2.5-0.025 TABLET 2 TAB PO (23:00)
[2023-03-20] MEDS: MELATONIN 3 MG TABLET PO (23:00)
[2023-03-21] VITALS (8 sets, daily range): BP systolic 129–151; BP diastolic 62–90; PULSE 62–86; RESP 16–18; TEMP 36.3–36.8; O2SAT 98–100; BMI 28.3
[2023-03-21] MEDS: 0.9 % SODIUM CHLORIDE 1000 ml 1,000 ML 150 ML IV (02:28)
[2023-03-21] MEDS: OMEPRAZOLE 20 MG CAPSULE DR 40 MG PO (06:24)
[2023-03-21 06:54] LABS: HCO3 VBG 25 mmol/L (21-28); PCO2 VBG 47 mmHG (40-50); PO2 VBG 52.2 mmHG (25-47); pH VBG 7.339 (7.32-7.43)
--- NOTE | 2023-03-21 06:57 | PC.NURSE ---
: incont wet brief x 2. SBA to BR. VSS. BG 159 at HS, Insulin given per sliding scale. Pt requested something for sleep, standing order melatonin given, pt stated he was able to rest. PRN Lomotil given after incont BM. Weight up 4lbs. Trace edema to BLE. LS clear. Left arm slightly edematous, TubiGrip with small towel placed in Left AC where IV fluids running, IV site shows great blood return, no c/o pain with saline flush. Removed TubiGrip?elevated left arm and placed warm blanket. Started fluids in new IV site. ?
[2023-03-21 07:11] LABS: Hematocrit 34.4 % (37.0-53.0); Hemoglobin* 11.4 gm/dL (13.5-17.5); Mean Corpuscular HGB Conc 33 gm/dL (32-36); Mean Corpuscular Hemoglobin 31 pg (26-34); Mean Corpuscular Volume 95 fL (80-100); Platelet Count* 100 K/uL (140-440); Red Blood Count 3.64 m/uL (4.30-5.90); White Blood Count* 3.68 K/uL (4.50-11.00)
[2023-03-21 07:13] LABS: Slide Review Reflex No
[2023-03-21 07:14] LABS: Chloride* 109 mmol/L (96-114); Sodium* 135 mmol/L (135-149)
[2023-03-21 07:17] LABS: Est. Creatinine Clearance* 75.44; Estimated Glomerular Filt Rate 81 ml/min
[2023-03-21 07:18] LABS: Anion Gap 2 mEq/L (7-15); Blood Urea Nitrogen* 7 mg/dL (7-30); Calcium* 8.2 mg/dL (8.4-10.6); Carbon Dioxide* 24 mmol/L (20-32); Glucose* 116 mg/dL (60-115); Magnesium* 1.7 mg/dL (1.5-2.6)
--- NOTE | 2023-03-21 07:22 | PM.IMPN1 ---
Progress Note: A&P Assessment and plan (1) Lactic acidosis: Problem details: -initially called this DKA but I think it was chronic medical issues, poor PO intake and increased lactate in a diabetic. He is not showing us dependence on insulin and his A1C was normal. He had elevated lactate and increased GAP without a pH drop or hyperglycemia. -resolved -no insulin currently -on oral antihyperglycemic. Status: Acute (2) Hypothermia: Problem details: -resolved. started on Zosyn with concern for sepsis. vitally stable overnight. cultures are negative. will continue for at least 24 hours. -discontinued 03/20 Status: Acute (3) Recurrent Clostridioides difficile diarrhea: Problem details: - recurrent. currently on prolonged oral vanco. pos here on 03/20. contact precautions. - Recommend he establish with GI at [facility] given transplant service is there and this is recurrent infection, will need referral at discharge Status: Acute (4) Insulin-requiring or dependent type II diabetes mellitus: Problem details: -ordinarily on insulin pump -insulin has not been refilled since 02/06 by PharmD review -A1C 6.0 -with 30+ lbs of weight loss in the last year, it may mean his insulin requirement is way down and he may not need the pump or could do injections or orals. -will have his brother bring in his pump -start glucotrol 2.5 mg qd Status: Acute (5) Physical debility: Problem details: Chronic. Has not been able to stay independent at home for more than a few weeks. Continue PT and OT plan for more intensive care team as an outpatient. Status: Chronic (6) Kidney transplant recipient: Problem details: continue antirejection meds Status: Chronic (7) Liver transplant recipient: Problem details: Continue anti rejection drugs Status: Chronic (8) Hypomagnesemia: Problem details: replace by IV and then PO Status: Acute (9) Pain syndrome, chronic: Problem details: -previous hospitalization placed on fentanyl patch; not compliant with refills by pharmD review -replaced at 25mcg on 03/18. reduced to 12mcg on 03/19. d/c iv dilaudid on 03/19. oral oxy for breakthru. d/c fentanyl due to sedation on 03/20/23 Status: Acute Subjective Date Seen: 03/21/23 Interval history: Daily Progress Note - Hospital Medicine Day #: 4 CC: Lactic acidosis/metabolic acidosis-resolved, hypothermia/sepsis concern resolved. Chronic weakness and immunosuppression. Chronic C diff. OVERNIGHT UPDATES FROM STAFF & MED, LAB, IMAGING UPDATES He feels better. less pain. Eating a little bit more. Renteria is out. IV fluids have stopped. Zosyn has been discontinued. All insulin is on hold. We discussed today discharge plan. Given his comorbidities and overall weakness and cognitive decline he should no longer be driving. I recommend that he be considered homebound. The only way I can see that he will be successful in his own home is to receive home health care, medication supervision, bath aide, adaptive equipment, adherence to the medical plan with frequent check ends with his PCP. Blood cultures and urine culture continue to be negative Objective: tired appearing. Vitals: see above Lungs: Clear. Cardiac: S1S2. Disposition/Potential discharge - Likely to return to previous living situation. Today I spent 50minutes seeing the patient, reviewing Expanse and EPIC notes/diagnostics, discussing the care plan with our care time that includes social work, PT/OT, pharmacy, RT, prison and documenting my impressions and plan in the medical record. Exam Const: Vital Signs, click to edit/add: Vital Signs - 24 hr 03/20/23 11:00 03/20/23 15:00 03/20/23 15:00 Temperature 98.5 F Pulse Rate [Left P ulse Oximeter] 104 H 99 Respiratory Rate 18 18 18 Blood Pressure [Le ft Arm] 183/98 H Pulse Oximetry 98 100 Oxygen Delivery Me thod Room Air Room Air 03/20/23 15:00 03/20/23 20:07 03/20/23 23:00 Temperature 98.0 F 97.1 F L Pulse Rate [Left P ulse Oximeter] 99 70 Respiratory Rate 18 18 18 Blood Pressure [Le ft Arm] 160/89 H 146/75 H Pulse Oximetry 100 99 Oxygen Delivery Me thod Room Air Room Air 03/20/23 23:00 03/20/23 23:00 03/21/23 03:00 Temperature 97.1 F L 97.5 F L Pulse Rate [Left P ulse Oximeter] 84 86 Respiratory Rate 18 18 18 Blood Pressure [Le ft Arm] 125/80 129/62 Pulse Oximetry 99 99 100 Oxygen Delivery Me thod Room Air Room Air Room Air Labs Labs: Laboratory Results - last 24 hr 03/18/23 03/20/23 03/20/23 17:52 06:23 10:21 WBC RBC Hgb Hct MCV MCH MCHC Plt Count VBG pH VBG pCO2 VBG pO2 VBG HCO3 Sodium Cancelled Potassium Cancelled Chloride Cancelled Carbon Dioxide Cancelled Anion Gap Cancelled BUN Cancelled Creatinine Cancelled Estimated Creat Clear Cancelled Estimated GFR Cancelled Glucose Cancelled Calcium Cancelled Magnesium Cancelled Total Bilirubin Cancelled AST Cancelled ALT Cancelled Alkaline Phosphatase Cancelled Total Creatine Kinase 38 L Cancelled C-Reactive Protein Cancelled Total Protein Cancelled Albumin Cancelled Stl C. diff Tox B Gene POSITIVE A* Stl C. diff [id number] PRESUMPTIVE NEGATIVE Lab Acknowledgement 03/20/23 03/21/23 14:09 06:19 WBC 3.68 L RBC 3.64 L Hgb 11.4 L Hct 34.4 L MCV 95 MCH 31 MCHC 33 Plt Count 100 L VBG pH 7.339 VBG pCO2 47 VBG pO2 52.2 H VBG HCO3 25 Sodium Potassium Chloride Carbon Dioxide Anion Gap BUN Creatinine Estimated Creat Clear Estimated GFR Glucose Calcium Magnesium Total Bilirubin AST ALT Alkaline Phosphatase Total Creatine Kinase C-Reactive Protein Total Protein Albumin Stl C. diff Tox B Gene Stl C. diff [id number] Lab Acknowledgement Test Added
[2023-03-21 07:34] LABS: Procalcitonin* 0.05 ng/mL (<0.50)
[2023-03-21] MEDS: LACTOBACILLUS ACIDOPHILUS 1 TABLET 1 TAB PO ×3 (07:58→17:35)
[2023-03-21] MEDS: glipiZIDE 5 MG TABLET 2.5 MG PO (07:58)
[2023-03-21] MEDS: ASPIRIN 81 MG TABLET EC PO (09:10)
[2023-03-21] MEDS: CLOTRIMAZOLE 1 % CREAM 1 APPLIC TOPICAL ×2 (09:10→20:48)
[2023-03-21] MEDS: SODIUM CHLORIDE 0.9 % (FLUSH) 10 ML SYRINGE 5 ML IVF ×2 (09:10→20:46)
[2023-03-21] MEDS: CLOPIDOGREL 75 MG TABLET PO (09:11)
[2023-03-21] MEDS: CITALOPRAM HYDROBROMIDE 20 MG TABLET 40 MG PO (09:11)
[2023-03-21] MEDS: SODIUM BICARBONATE 650 MG TABLET 1300 MG PO ×2 (09:11→20:44)
[2023-03-21] MEDS: MAGNESIUM OXIDE 400 MG TABLET PO ×2 (09:11→20:45)
[2023-03-21] MEDS: GABAPENTIN 100 MG CAPSULE PO ×2 (09:11→20:44)
[2023-03-21] MEDS: METOPROLOL SUCCINATE (XL) 50 MG TAB 25 MG PO (09:12)
[2023-03-21] MEDS: TACROLIMUS 0.5 MG CAPSULE 2 MG PO ×2 (09:13→20:47)
[2023-03-21] MEDS: VANCOMYCIN 125 MG CAPSULE PO ×4 (09:14→20:46)
[2023-03-21] MEDS: TAMSULOSIN HCL 0.4 MG CAPSULE PO (09:14)
[2023-03-21] MEDS: azaTHIOprine 50 MG TABLET 150 MG PO (09:14)
[2023-03-21] MEDS: FERROUS SULFATE 325 MG TABLET PO (09:14)
--- NOTE | 2023-03-21 12:15 | PC.SOCIAL ---
Discharge planning: Called Makenna Marquez at [facility] who has an open case on this patient. Makenna states pt did not follow through with filling out the sliding scale application for Public Health Nursing. Makenna will fax this to social services specialist who will assist pt in filling it out while he is at the hospital if he chooses. Makenna to contact [facility] to find out if they can provide RN,PT,OT and bathing aid for pt at discharge. 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
[2023-03-21] MEDS: MELATONIN 3 MG TABLET PO (18:58)
--- NOTE | 2023-03-21 19:33 | PC.NURSE ---
End of shift-- Pt pleasant and cooperative, alert and oriented. VSS and pt is afebrile. SPO2 maintained >90% on RA. He denied any pain. LS CTA. BG 129 and no additional insulin was needed. He denied nausea and ordered only a sandwich for dinner which he has not yet eaten. He was incontinent of urine x1. SBA with walker to BR and tolerated it very well. Pt expressed that he is eager to discharge home tomorrow morning. Report to oncoming shift.
[2023-03-21] MEDS: ATORVASTATIN 10 MG TABLET 20 MG PO (20:45)
[2023-03-21] MEDS: ENOXAPARIN 30 MG/0.3ML INJ SUBCUT (20:46)
[2023-03-21] MEDS: DOXAZOSIN 4 MG TABLET PO (20:47)
[2023-03-22 03:00] VITALS: BP 137/76; RESP 18; TEMP 36.1; O2SAT 100
[2023-03-22] MEDS: OMEPRAZOLE 20 MG CAPSULE DR 40 MG PO (05:54)
--- NOTE | 2023-03-22 07:35 | PC.NURSE ---
: indep in rm with walker. Encouraging ambulation & fluids. VSS. ??
[2023-03-22 08:21] VITALS: BP 140/80; PULSE 72; RESP 16; TEMP 36.7; O2SAT 98; O2SAT 99
[2023-03-22] MEDS: FERROUS SULFATE 325 MG TABLET PO (08:23)
[2023-03-22] MEDS: azaTHIOprine 50 MG TABLET 150 MG PO (08:23)
[2023-03-22] MEDS: GABAPENTIN 100 MG CAPSULE PO (08:23)
[2023-03-22] MEDS: TACROLIMUS 0.5 MG CAPSULE 2 MG PO (08:23)
[2023-03-22] MEDS: MAGNESIUM OXIDE 400 MG TABLET PO (08:24)
[2023-03-22] MEDS: SODIUM BICARBONATE 650 MG TABLET 1300 MG PO (08:24)
[2023-03-22] MEDS: TAMSULOSIN HCL 0.4 MG CAPSULE PO (08:24)
[2023-03-22] MEDS: ASPIRIN 81 MG TABLET EC PO (08:24)
[2023-03-22] MEDS: glipiZIDE 5 MG TABLET 2.5 MG PO (08:24)
[2023-03-22] MEDS: CLOPIDOGREL 75 MG TABLET PO (08:24)
[2023-03-22] MEDS: METOPROLOL SUCCINATE (XL) 50 MG TAB 25 MG PO (08:25)
[2023-03-22] MEDS: VANCOMYCIN 125 MG CAPSULE PO (08:25)
[2023-03-22] MEDS: LACTOBACILLUS ACIDOPHILUS 1 TABLET 1 TAB PO (08:25)
[2023-03-22] MEDS: CITALOPRAM HYDROBROMIDE 20 MG TABLET 40 MG PO (08:25)
[2023-03-22] MEDS: CLOTRIMAZOLE 1 % CREAM 1 APPLIC TOPICAL (08:26)
[2023-03-22] MEDS: SODIUM CHLORIDE 0.9 % (FLUSH) 10 ML SYRINGE 5 ML IVF (08:26)
--- NOTE | 2023-03-22 10:00 | P.DS_ITS ---
DS: Providers Provider Date Seen: 03/22/23 Date of admission: 03/18/23 17:37 Primary care physician: Rubén Boyle MD Admitting Clinician: Chino Bhakta MD Consults: 03/18/23 17:18 Consult to Physical Therapy [CONS] Routine Comment: Reason(s) for PT Consult:: Evaluate and Treat Any Restrictions?:: No Restrictions Consult to Furniture Installer [CONS] Routine Comment: Reason for Consult:: Discharge Planning Needs 03/18/23 17:23 Consult to Occupational Therapy [CONS] Routine Comment: Reason(s) for OT Consult:: Evaluate and Treat Any Restrictions?:: No Restrictions Attending Physician on discharge: Laurie De La O MD [facility] Hospitalist Date of Discharge: 03/22/23 DS: Summary Status at Discharge Cognitive/behavioral status at discharge: FINAL DIAGNOSIS/FOLLOW UP ISSUES: 1. Staying independent. Patient is failing at home. He needs assisted living and refuses. We've sent our concerns to the [facility] nurse and ordered meals on wheels for him. [facility] nurse will do home visits in order to supervise medications and diabetes management. I've asked his brother to assist in getting him to therapy appointments and supervision of his status. Guardanship is likely coming if he keeps declining and unable to care for himself. 2. Chronic CDIFF - continues on oral vanc. He needs a referral to [facility] for consideration of fecal transplant. 3. Electrolyte disturbances. As an outpatient I would follow-up on his creatinine, magnesium, potassium. I would also review blood sugar management. He has been taken off all insulin secondary to his weight loss, A1c of 6.0 and inability to manage his insulin pump. 4. Pain management: I have discontinued fentanyl patches. I have decreased his gabapentin. I have scheduled Tylenol. I have recommended minimal doses of p.r.n. oxycodone. This is all to decrease his fall risk and his overly sedated presentation. BRIEF HOSPITAL COURSE: Patient was admitted for 5 days. Synopsis of acute inpatient issues are outlined above. Chronic medical conditions with notable findings outlined above. DISCHARGE MEDICATIONS: See Reconciled list - SIGNIFICANT CHANGES: Holding all insulin Glipizide 5 mg daily as his anti hyperglycemic regimen Supplemental magnesium and potassium Lower doses of gabapentin and furosemide Scheduled acetaminophen P.r.n. oxycodone, limit 10 mg daily divided by 2-4 doses Specific instructions to the patient and follow-up are outlined below. REVIEW OF SYSTEMS No new chest pain or dyspnea Pain controlled No voiding difficulties Tolerating diet challenge PHYSICAL EXAM: CONSTITUTIONAL: Awake. Alert. Somewhat of a flat affect. VITAL SIGNS: see record. HEENT: Normocephalic, atraumatic. PERRL, EOMI, conjunctivae pink, no scleral icterus. Ears and nose externally normal. Pharynx normal. NECK: No JVD. No carotid bruit, no thyromegaly, no adenopathy. CHEST: Clear to auscultation bilaterally. HEART: S1 and S2 normal. Edema ABDOMEN: Soft, nontender. Normal bowel sounds. MUSCULOSKELETAL: No gross joint deformity or swelling. NEURO: Cranial nerves intact. Grossly intact. No asymmetric findings. SKIN: No rashes, petechiae, concerning changes PSYCHIATRIC: Mood euthymic. DISPOSITION: Home with brother Time spent on discharge 37 minutes. Functional status at discharge: uses cane/walker Overall status at discharge: patient is progressing back to baseline Time Spent with Patient Time attestation: Total time spent providing and/or coordinating discharge services: Time spent: Greater than 30 minutes Exam Const: Vital Signs, click to edit/add: Vital Signs - 24 hr 03/21/23 11:16 03/21/23 15:00 03/21/23 15:00 Temperature 97.4 F L 98.2 F Pulse Rate [Left P ulse Oximeter] 82 86 Respiratory Rate 16 16 Blood Pressure [Ri ght Arm] 151/77 H 141/90 H Pulse Oximetry 99 99 99 Oxygen Delivery Me thod Room Air Room Air Room Air 03/21/23 15:00 03/21/23 20:00 03/21/23 22:26 Temperature 97.4 F L Pulse Rate [Left P ulse Oximeter] 86 62 Respiratory Rate 16 16 16 Blood Pressure [Ri ght Arm] 147/71 H Pulse Oximetry 98 Oxygen Delivery Wa thod Room Air 03/21/23 22:26 03/21/23 23:00 03/22/23 03:00 Temperature 97 F L Pulse Rate [Left P ulse Oximeter] Respiratory Rate 16 16 18 Blood Pressure [Ri ght Arm] 137/76 Pulse Oximetry 98 100 Oxygen Delivery Wa thod Room Air Room Air 03/22/23 08:21 03/22/23 08:21 Temperature 98.1 F Pulse Rate [Left P ulse Oximeter] 72 Respiratory Rate 16 Blood Pressure [Ri ght Arm] 140/80 H Pulse Oximetry 99 98 Oxygen Delivery Me thod Room Air Room Air DS: Data Data Completed and Pending Completed studies during hospitalization: Procedures Transfusion of Nonautologous Red Blood Cells into Peripheral Vein, Percutaneous Approach (11/26/22) Labs on day of discharge: Preliminary micro results at discharge 03/18/23 14:21 Blood Culture - Preliminary Blood NO GROWTH AFTER 72 HOURS 03/18/23 14:51 Blood Culture - Preliminary Blood NO GROWTH AFTER 72 HOURS Discharge Plan Discharge Disposition: Home w/ Parent or Adult Date of Admission: 03/18/23 17:37 Attending Provider on Discharge: Laurie De La O Primary Care Provider: Rubén Boyle Anticipated Discharge Date/Time: 03/22/23 09:45 Discharge Medications: New gabapentin 100 mg Capsule 100 mg PO BID Qty: 60 0RF glipizide 5 mg Tablet 5 mg PO DAILYWM Qty: 30 0RF Rx Instructions: For diabetes. No insulin now. metoprolol succinate 50 mg Tablet Extended Release 24 Hr 25 mg PO DAILY Qty: 30 0RF oxycodone 5 mg Tablet 2.5 - 5 mg PO Q4H PRNQty: 30 0RF Rx Instructions: max two tabs a day. magnesium oxide 400 mg (241.3 mg magnesium) Tablet 800 mg PO BID Qty: 120 0RF potassium chloride 10 mEq capsule, extended release 20 meq PO DAILY Qty: 60 0RF furosemide [Lasix] 20 mg tablet 20 mg PO DAILY Qty: 30 0RF Continued clopidogrel 75 mg tablet 75 mg PO DAILY diphenoxylate-atropine 2.5-0.025 mg tablet 2 tab PO TID PRN (Reason: diarrhea) doxazosin 4 mg tablet 4 mg PO HS azathioprine 50 mg tablet 150 mg PO DAILY sodium bicarbonate 650 mg tablet 1,300 mg PO BID vancomycin 125 mg Capsule 125 mg PO QID Qty: 105 0RF Rx Instructions: 125 mg orally 4 times daily for 14 days, then 125 mg orally 2 times daily for 7 days, then 125 mg orally once daily for 7 days, then 125 mg orally every 2 days for 8 weeks Lactobacillus acidophilus 0.5 mg (100 million cell) Tablet 100 mmu cells PO TIDWM Qty: 90 0RF aspirin [Adult Aspirin Regimen] 81 mg tablet,delayed release (DR/EC) 81 mg PO DAILY tacrolimus 0.5 mg capsule 2 mg PO BID Patient Comments: ferrous sulfate 325 mg (65 mg iron) tablet 325 mg PO DAILY tamsulosin 0.4 mg capsule 0.4 mg PO DAILY omeprazole 40 mg capsule,delayed release(DR/EC) 40 mg PO DAILY atorvastatin 20 mg tablet 20 mg PO HS Qty: 90 0RF citalopram [Celexa] 40 mg tablet 40 mg PO DAILY Qty: 90 0RF Changed acetaminophen 325 mg Tablet 650 mg PO Q6H 30 Days Qty: 50 0RF Discontinued furosemide 40 mg tablet 40 mg PO DAILY PRN insulin aspart U-100 [Novolog U-100 Insulin aspart] 100 unit/mL solution 100 unit subcut DAILY Rx Instructions: via insulin pump fentanyl 25 mcg/hr patch 72 hour 1 patch transdermal Q48H Qty: 15 0RF gabapentin 600 mg tablet 600 mg PO BID Qty: 180 3RF Discharge Orders: Discharge Order (Routine); Ordered 03/22/23 Ordered By: Laurie De La O Additional Instructions: 1. No driving (Michael has keys) for 1 month 2. Outpatient OT and PT appointments for strength 3. [facility] Nurse will be in contact to go over medications and check blood sugars and to help you maintain your independence. 4. No marijuana 5. Meals on Wheels 6. Consider moving into an Assisted Living and/or LTC in the coming months Activity Level: Activity as Tolerated Activity Detail: Up with walker and moving every 1 hour while awake. Do not lay in bed >1 during the day. Discharge Diet: Regular Follow Up Appointments: Rubén Boyle MD [Primary Care Provider] - 03/29/23 Forms: [facility] [employer] Info Instructions
--- NOTE | 2023-03-22 15:37 | PC.SOCIAL ---
Discharge plan: Prior to discharge, met with pt who is pleasd with planned discharge home today. Pt is refusing placement in a facility with care and agrees to out-pt PT/OT and home care nursing by [facility]. Pt is aware of sliding scale fee program. Provided him with written information on this program and pt completed an application. Faxed the completed application and discharge orders to [facility] for follow up. Called Makenna Marquez at [facility] who currenty has an open vulnerable adult case on pt. Makenna is aware of discharge plans and support arranged and will follow up with pt at home. Faxed requested discharge information to Makenna Marquez as requested.
--- NOTE | 2023-03-28 18:39 | P.DS_ITS ---
DS: Providers Provider Date Seen: 03/22/23 Date of admission: 03/18/23 17:37 Primary care physician: Rubén Boyle MD Admitting Clinician: Chino Bhakta MD Consults: 03/18/23 17:18 Consult to Physical Therapy [CONS] Routine Comment: Reason(s) for PT Consult:: Evaluate and Treat Any Restrictions?:: No Restrictions Consult to Polysil[employer] Preparation Worker [CONS] Routine Comment: Reason for Consult:: Discharge Planning Needs 03/18/23 17:23 Consult to Occupational Therapy [CONS] Routine Comment: Reason(s) for OT Consult:: Evaluate and Treat Any Restrictions?:: No Restrictions Attending Physician on discharge: [facility] Date of Discharge: 03/22/23 DS: Diagnosis Discharge Diagnosis (1) Lactic acidosis: Status: Acute Problem details: -initially called this DKA but I think it was chronic medical issues, poor PO intake and increased lactate in a diabetic. He is not showing us dependence on insulin and his A1C was normal. He had elevated lactate and increased GAP without a pH drop or hyperglycemia. -resolved -no insulin currently -on oral antihyperglycemic. (2) Hypothermia: Status: Acute Problem details: -resolved. started on Zosyn with concern for sepsis. vitally stable upon arrival to the floor. cultures are negative. will continue for at least 24 hours. -discontinued 03/20 (3) Insulin-requiring or dependent type II diabetes mellitus: Status: Acute Problem details: -ordinarily on insulin pump -insulin has not been refilled since 02/06 by PharmD review -A1C 6.0 -with 30+ lbs of weight loss in the last year, it may mean his insulin requirement is way down and he may not need the pump or could do injections or orals. -will have his brother bring in his pump -start glucotrol 2.5 mg qd (4) Weakness: Status: Acute Problem details: Acute on chronic. Patient does not want to be in a prison but struggling to remain independent. Very sedentary. Therapy raises concern about ongoing ability to care for self at home. Cog screens have been declining at each visit. Still has capacity at this time, but may benefit from higher level of care if patient agreeable. [facility] report made. [facility] saw him previously, but they were unde r the impression that he was agreeable to go home with self-paid home health, which is not the case. (5) Hypomagnesemia: Status: Acute Problem details: replace by IV and then PO (6) Pain syndrome, chronic: Status: Acute Problem details: -previous hospitalization placed on fentanyl patch; not compliant with refills by pharmD review -replaced at 25mcg on 03/18. reduced to 12mcg on 03/19. d/c iv dilaudid on 03/19. oral oxy for breakthru. d/c fentanyl due to sedation on 03/20/23 (7) Depression: Status: Chronic Problem details: Denies depressive symptoms. Appears apathetic about his circumstances. Decrease citalopram and add mirtazapine. (8) Weight loss: Status: Acute Problem details: - Weight is down 20 kg in 4 months. Likely multifactorial. - Appreciate nutrition consult. Patient refused nutritional supplements and snacks. - Treat c diff as above. Add mirtazapine for depression and to increase appetite. (9) Kidney transplant recipient: Status: Chronic Problem details: continue antirejection meds (10) Liver transplant recipient: Status: Chronic Problem details: Continue anti rejection drugs (11) Recurrent Clostridioides difficile diarrhea: Status: Acute Problem details: - recurrent. currently on prolonged oral vanco. pos here on 03/20. contact precautions. - Recommend he establish with GI at [facility] given transplant service is there and this is recurrent infection, will need referral at discharge (12) Physical debility: Status: Chronic Problem details: Chronic. Has not been able to stay independent at home for more than a few weeks. Continue PT and OT plan for more intensive care team as an outpatient. (13) Declining functional status: Status: Acute Problem details: - Initially unable to transfer or move fluidly/safely. - this is a recurrent problem. - s/p multiple prior hospitalizations for management of acute medical problems over the past several months, followed by short term SNF transitional care until he demands to return to his home, then returns home for short period of time before returning to hospital with acute medical problems requiring inpatient hospitalization for stabilization, and the cycle repeats. - PT, OT consulted - consult for discharge planning - I again reviewed this dangerous pattern of hospitalization/TCU in SNF/home briefly/re-hospitalization pattern with patient . He has poor insight and/or acceptance of this downward spiraling pattern of his health. Voiced my opinion to him once again that if he is to succeed in safely maintaining his health status for longer periods of time, given his declining physical health and decreased ability to care for himself independently in his home, that he needs a level of care comparable to what he receives when he is in a SNF. - MOCA 22 on 01/24, decreased from 25 in October 2022 - will need ongoing support from PCP - discharged to home with home health services - medication management, therapy (14) Diabetic neuropathy: Status: Acute Problem details: high risk for falls recommend TCU stay - patient declines once again. DS: Summary Hospital Course Hospital Course: FINAL DIAGNOSIS/FOLLOW UP ISSUES: 1. Staying independent. Patient is failing at home. He needs assisted living and refuses. We've sent our concerns to the [facility] nurse and ordered meals on wheels for him. [facility] nurse will do home visits in order to supervise medications and diabetes management. I've asked his brother to assist in getting him to therapy appointments and supervision of his status. Guardanship is likely coming if he keeps declining and unable to care for himself. 2. Chronic CDIFF - continues on oral vanc. He needs a referral to [facility] for consideration of fecal transplant. 3. Electrolyte disturbances. As an outpatient I would follow-up on his creatinine, magnesium, potassium. I would also review blood sugar management. He has been taken off all insulin secondary to his weight loss, A1c of 6.0 and inability to manage his insulin pump. 4. Pain management: I have discontinued fentanyl patches. I have decreased his gabapentin. I have scheduled Tylenol. I have recommended minimal doses of p.r.n. oxycodone. This is all to decrease his fall risk and his overly sedated presentation. BRIEF HOSPITAL COURSE: Patient was admitted for 5 days. Synopsis of acute inpatient issues are outlined above. Chronic medical conditions with notable findings outlined above. DISCHARGE MEDICATIONS: See Reconciled list - SIGNIFICANT CHANGES: Holding all insulin Glipizide 5 mg daily as his anti hyperglycemic regimen Supplemental magnesium and potassium Lower doses of gabapentin and furosemide Scheduled acetaminophen P.r.n. oxycodone, limit 10 mg daily divided by 2-4 doses Specific instructions to the patient and follow-up are outlined below. REVIEW OF SYSTEMS No new chest pain or dyspnea Pain controlled No voiding difficulties Tolerating diet challenge PHYSICAL EXAM: CONSTITUTIONAL: Awake. Alert. Somewhat of a flat affect. VITAL SIGNS: see record. HEENT: Normocephalic, atraumatic. PERRL, EOMI, conjunctivae pink, no scleral icterus. Ears and nose externally normal. Pharynx normal. NECK: No JVD. No carotid bruit, no thyromegaly, no adenopathy. CHEST: Clear to auscultation bilaterally. HEART: S1 and S2 normal. Edema ABDOMEN: Soft, nontender. Normal bowel sounds. MUSCULOSKELETAL: No gross joint deformity or swelling. NEURO: Cranial nerves intact. Grossly intact. No asymmetric findings. SKIN: No rashes, petechiae, concerning changes PSYCHIATRIC: Mood euthymic. DISPOSITION: Home with brother Time spent on discharge 37 minutes. Status at Discharge Functional status at discharge: uses cane/walker Overall status at discharge: patient is not back to baseline Time Spent with Patient Time attestation: Total time spent providing and/or coordinating discharge services: Time spent: Greater than 30 minutes DS: Data Data Completed and Pending Completed studies during hospitalization: Procedures Transfusion of Nonautologous Red Blood Cells into Peripheral Vein, Percutaneous Approach (11/26/22) Discharge Plan Discharge Disposition: Home w/ Parent or Adult Date of Admission: 03/18/23 17:37 Attending Provider on Discharge: Laurie De La O Primary Care Provider: Rubén Boyle Anticipated Discharge Date/Time: 03/22/23 09:45 Discharge Medications: New gabapentin 100 mg Capsule 100 mg PO BID Qty: 60 0RF glipizide 5 mg Tablet 5 mg PO DAILYWM Qty: 30 0RF Rx Instructions: For diabetes. No insulin now. metoprolol succinate 50 mg Tablet Extended Release 24 Hr 25 mg PO DAILY Qty: 30 0RF oxycodone 5 mg Tablet 2.5 - 5 mg PO Q4H PRNQty: 30 0RF Rx Instructions: max two tabs a day. magnesium oxide 400 mg (241.3 mg magnesium) Tablet 800 mg PO BID Qty: 120 0RF potassium chloride 10 mEq capsule, extended release 20 meq PO DAILY Qty: 60 0RF furosemide [Lasix] 20 mg tablet 20 mg PO DAILY Qty: 30 0RF Continued clopidogrel 75 mg tablet 75 mg PO DAILY diphenoxylate-atropine 2.5-0.025 mg tablet 2 tab PO TID PRN (Reason: diarrhea) doxazosin 4 mg tablet 4 mg PO HS azathioprine 50 mg tablet 150 mg PO DAILY sodium bicarbonate 650 mg tablet 1,300 mg PO BID vancomycin 125 mg Capsule 125 mg PO QID Qty: 105 0RF Rx Instructions: 125 mg orally 4 times daily for 14 days, then 125 mg orally 2 times daily for 7 days, then 125 mg orally once daily for 7 days, then 125 mg orally every 2 days for 8 weeks Lactobacillus acidophilus 0.5 mg (100 million cell) Tablet 100 mmu cells PO TIDWM Qty: 90 0RF aspirin [Adult Aspirin Regimen] 81 mg tablet,delayed release (DR/EC) 81 mg PO DAILY tacrolimus 0.5 mg capsule 2 mg PO BID Patient Comments: ferrous sulfate 325 mg (65 mg iron) tablet 325 mg PO DAILY tamsulosin 0.4 mg capsule 0.4 mg PO DAILY omeprazole 40 mg capsule,delayed release(DR/EC) 40 mg PO DAILY atorvastatin 20 mg tablet 20 mg PO HS Qty: 90 0RF citalopram [Celexa] 40 mg tablet 40 mg PO DAILY Qty: 90 0RF Changed acetaminophen 325 mg Tablet 650 mg PO Q6H 30 Days Qty: 50 0RF Discontinued furosemide 40 mg tablet 40 mg PO DAILY PRN insulin aspart U-100 [Novolog U-100 Insulin aspart] 100 unit/mL solution 100 unit subcut DAILY Rx Instructions: via insulin pump fentanyl 25 mcg/hr patch 72 hour 1 patch transdermal Q48H Qty: 15 0RF gabapentin 600 mg tablet 600 mg PO BID Qty: 180 3RF Discharge Orders: Discharge Order (Routine); Ordered 03/22/23 Ordered By: Laurie De La O Patient Education: Metoprolol (By mouth), Furosemide (By mouth), Glipizide (By mouth), Potassium Chloride (By mouth), Gabapentin (By mouth), Oxycodone, Rapid Release (By mouth), Magnesium (By mouth) Additional Instructions: 1. No driving (Michael has keys) for 1 month 2. Outpatient OT and PT appointments for strength 3. [facility] Nurse will be in contact to go over medications and check blood sugars and to help you maintain your independence. 4. No marijuana 5. Meals on Wheels 6. Consider moving into an Assisted Living and/or LTC in the coming months Activity Level: Activity as Tolerated Activity Detail: Up with walker and moving every 1 hour while awake. Do not lay in bed >1 during the day. Discharge Diet: Regular Follow Up Appointments: [facility] [Provider Group] - 03/29/23 (Home Safety Eval) [facility] [place] [Provider Group] - 03/29/23 (strengthening, gait training, ADLs) Rubén Boyle MD [Primary Care Provider] - 04/05/23 11:45 am ([facility] for follow-up.) Forms: [employer] Info Instructions
== END 2023-03-22 12:20 | disposition home or self-care (01) | DRG 641 ==
LOC: ED 13:25 → MEDSURG 16:51
PROVIDERS: Family Medicine; Admitting Provider Internal Medicine; Emergency Provider Family Medicine; PCP Family Medicine; Visit Provider Internal Medicine
DX: E87.21 Acute metabolic acidosis (principal); A04.71 Enterocolitis due to Clostridium difficile, recurrent; Z94.4 Liver transplant status; Z94.0 Kidney transplant status; I13.0 Hypertensive heart and chronic kidney disease with heart failure and stage 1 through stage 4 chronic kidney disease, or unspecified chronic kidney disease; R64 Cachexia; Z96.41 Presence of insulin pump (external) (internal); Z79.4 Long term (current) use of insulin; R68.0 Hypothermia, not associated with low environmental temperature; R62.7 Adult failure to thrive; R53.1 Weakness; F32.A Depression, unspecified; E11.22 Type 2 diabetes mellitus with diabetic chronic kidney disease; N18.9 Chronic kidney disease, unspecified; I50.9 Heart failure, unspecified; G89.4 Chronic pain syndrome; Z95.5 Presence of coronary angioplasty implant and graft; E83.42 Hypomagnesemia; F10.21 Alcohol dependence, in remission; E11.40 Type 2 diabetes mellitus with diabetic neuropathy, unspecified; Z68.26 Body mass index [BMI] 26.0-26.9, adult
CPT/HCPCS: 36415; 51798; 71045; 71250; 74176; 80048; 80053; 80069; 81001; 82077; 82330; 82550; 82803; 82962; 83036; 83605; 83735; 84100; 84145; 84484; 85025; 85027; 86140; 87040; 87086; 87493; 87631; 93005; 97116; 97162; 97166; 97530; 97535; 99285; 99291; A9270; J1170; J1650; J2060; J2543; J3475; J3590; J7030; J7120; J7500; J7507

== ENCOUNTER 2023-03-28 15:23 | Outpatient (RCR) | payer MEDICARE, BC, SELFPAY ==
--- NOTE | 2023-03-30 08:30 | OT.HSE ---
OT Home Safety Eval OT Home Safety Eval Start: 03/28/23 09:02 Freq: Status: Active Protocol: Document 03/28/23 17:54 JAMES (Rec: 03/28/23 19:33 JAMES [id number]) E-signed By Ernestine Pope OTR/L OT Outpatient Evaluation Details Type Type Eval Complexity Medium Insurance Information Insurance Information Insurance Information Medicare B Insurance Information Comments BC Platimun 220G OT Home Safety History/Precautions Medical/Functional History Medical History Reviewed Yes Prior Level of Function/Mobility Pt. lives alone and has been completing ADLs independently within his ability and most IADLs independently. His brother takes him shopping and assists him with home maintenance, shoveling, lawn mowing, and occasional transportation. Pt. reports that he has not driven since d /c from the hospital but plans to resume driving this week. He has a FWW for ambulation but does not use it for ambulation in his home. He uses it as a handrail for a flight of 3 steps to his bedroom. He has a cane which he uses for outdoor ambulation . He was admitted on 03/18/23 for Adult Failure to Thrive and discharged from [facility] on 03/22/23 with the following recommendations: 1. No driving (Michael has keys) for 1 month, 2. Outpatient OT home safety evaluation and PT appointments for strength, 3. [facility] Nurse will be in contact to go over medications and check blood sugars and to help you maintain your independence. 4. No marijuana , 5. Meals on Wheels, 6. Consider moving into an Assisted Living and/or LTC in the coming months He has a PMHX of: Depression F32.A - Depression , unspecified (ICD-10), Weight loss R63.4 - Abnormal weight loss (ICD-10), Diarrhea R19. 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 50 - Low back pain, unspecified (ICD-10), Vitamin D deficiency E55.9 - Vitamin D deficiency, unspecified (ICD -10), History of transcatheter aortic valve replacement ( TAVR) Z95.2 - Presence of prosthetic heart valve (ICD-10 ), BPH (benign prostatic hyperplasia), N40.0 - Benign prostatic hyperplasia without lower urinary tract symptoms ( ICD-10), History of non-anemic folic acid deficiency Z86.39 - Personal history of other endocrine, nutritional and metabolic disease (ICD-10), History of colonic polyps (), Z86.010 - Personal history of colonic polyps (ICD -10), Folic acid deficiency ( 01/22/16), E53.8 - Deficiency of other specified B group vitamins (ICD-10), Erectile dysfunction N52.9 - Male erectile dysfunction, unspecified (ICD-10), Current moderate episode of major depressive disorder without prior episode (01/14/17), F32 .1 - Major depressive disorder , single episode, moderate ( ICD-10), Controlled substance agreement signed (04/19/18), Z79.899 - Other correction ( current) drug therapy (ICD-10) , Pancytopenia D61.818 - Other pancytopenia (ICD-10), Pain syndrome, chronic G89.4 - Chronic pain syndrome (ICD- 10), Chronic kidney disease ( CKD), N18.9 - Chronic kidney disease, unspecified (ICD-10), History of ETOH abuse F10.11 - Alcohol abuse, in remission (ICD-10), CHF (congestive heart failure), I50.9 - Heart failure, unspecified (ICD-10) , Mitral regurgitation I34.0 - Nonrheumatic mitral (valve) insufficiency (ICD-10), Diabetic neuropathy E11.40 - Type 2 diabetes mellitus with diabetic neuropathy, unspecified (ICD-10), GERD ( gastroesophageal reflux disease), K21.9 - Gastro- esophageal reflux disease without esophagitis (ICD-10), Hyperlipidemia E78.5 - Hyperlipidemia, unspecified ( ICD-10), HTN (hypertension), I10 - Essential (primary) hypertension (ICD-10) Diverticulosis, K57.90 - Diverticulosis of intestine, part unspecified, without perforation or abscess without bleeding (ICD-10) Current Condition Treatment Diagnosis Decreased independence in ADLs and IADLs Date of Onset 03/18/23 Physician Authorized Visits 1 Recertification Due 05/19/22 Social History Type of Dwelling [place] Home Number of Floors (Floors) 4 Number of Stairs to Enter (Stairs) 7 Lives With: Alone Physical Barriers in Home Environment Railing Ascend Left,Standard Step Height Employment Status Retired Oriented Patient Orientation Person,Place,Time,Situation Cognitive Comments Recent MOCA performance was 22/30 indicating need for additional cognitive evaluation. Pt. reports that his short term memory is getting worse. Pt. was overwhelmed by his medications upon arrival of therapist for home safety evaluation. No medications were setup in his c4 planner. He reports that he has just been taking them out of the bottle since his return home. New medications from hospital d/c on 03/22/23 were filled at the pharmacy today. Pt. also has a list of medications to discontinue or change of dosage. He has questions about these. Upper Extremity Function Upper Extremity Function WNL OT Home Safety Evaluation Entrance Outside Front Entrance Description Terry Lock,Railing Ascend Left, Stairs, 2-4 Foyer Entrance Carpeted,Scatter Rugs Present, Light Accessible Entrance Comments 4 steps from detached garage to main entrance level. Bathroom Upper Level Toilet Accessibility High Rise Toilet,Hygiene Products Accessible Level of Assist To/From Toilet Independent Level of Assist For Clothing Management Independent Level of Assist For Pericare Independent Tub/Shower Accessibility Tub/Shower,Sliding Glass Doors ,Non Skid Mat/Strips,Non Slip Rug,Tub/Shower Bench w/o Back Tub Transfer Approach Step Into w/Hip Flexion,Step Into w/Knee Flexion Level of Assist To/From Tub/Shower Independent Sink Accessible Yes Bathroom Comments Pt. reports that he is sponge bathing due to being afraid of getting in the shower but is not open to making changes such as mounting grab bars, using extended tub bench, removing glass doors to allow for wider opening to tub. Bathroom is on level of the entrance of the home, 3 steps up from the main level. Bedroom Bedroom Accessibility Accessible Closet,Accessible Drawers,Accessible Light, Accessible Clock,Accessible Phone,Carpeted,Double Bed, Clear Floor Surface Bedroom Comments Bedroom is 3 steps up from main level of the home. Pt. would be able to use cane for ambulation in his bedroom but not enough floor space to allow for FWW use for ambulation. Pt. uses urinal at night so he does not need to descend 3 steps, walk across dining room and then up 3 steps to access the bathroom. Living Area Favorite Chair/Couch Couch Favorite Chair/Couch Comments rolling desk chair used in dining room Living Room Access Accessible Remote Control, Accessible Light,Carpeted, Clear Floor Surface Living Area Comments Living room has 1 step down from main level. Pt. has couch on main level to watch TV from dining room rather than descend to living room level. Loft above the living room has non-standard railing with full flight of stairs. Pt. reports that he does not access the upper level. Kitchen Table Access Yes Captain Chair Present Yes Able to Access Freezer Entrees Yes Able to Access Low Refrigerator Items Yes Able to Reach Mid-Height Refrigerator Yes Items Kitchen Sink Accessible Yes Stove Controls Accessible Yes Able to Operate Controls Safely Yes Able to Open/Close Oven Yes Microwave Available Yes Cupboard Accessibility Obtains High Located Item, Obtains Low Located Item,Able to Slide Items,Able to Transport Items Level of Meal Preparation Cold Meal Preparation, Microwave Entr?e/Warming Kitchen Comments Pt. warms premade meals or prepares simple meals on his own. It has been recommended that he have meals on wheels. Pt declines this recommendation. Transfer Home Entrance Transfer Technique Ambulatory Transfer Level of Assist Independent Transfer Comments Holds railings for all stairs Vehicle Transfer Technique Ambulatory Transfer Level of Assist Independent Couch Transfer Technique Ambulatory Transfer Level of Assist Independent Straightback Chair Transfer Technique Ambulatory Transfer Level of Assist Independent Bed Transfer Technique Ambulatory Transfer Level of Assist Independent Independent Living Skills Able to Manage Laundry Yes Able to Take Out Garbage Yes: Brother assists Able to Safely Access Mail Yes: Brother assists Able to Shop Without Assistance No: Shops with brother Independent Living Skills Comments Laundry is located in the bedroom. Safety & Quality of ADL/S Uses LifeLine No Working Fire/Smoke Detector Yes ADL Safety (PASS) 2 Quality of ADL Task (PASS) 2 Safety Comments Pt. needs assistance with medication management. Pt. has difficulty following prescription directions. (not splitting pills that are prescribed as half pill) Not taking medications if directions are complicated (i. e. Vancomyacin tapering). Services Used/Recommended Community Services Prior to Admission Assist w/Garbage,Assist w/Mail ,Assist w/Shopping Discharge Services Recommended Nursing,Meals on Wheels 7x, Homemaking Assist, Transportation Assist Services Used Comments Pt. is not agreeable to increased services in his home or moving to [facility] with increased assistance available . Recommendations Bedroom Recommendations Reorient Furniture Bathing Recommendations Front Wall Vertical Grab Bar, Side Wall Horizontal Grab Bar, Extended Tub Bench,Long Handled Sponge/Bedford Kitchen Recommendations Remove Clutter,Meals On Wheels Specifications Pt wants to stay in his home and does not want in home services to assist him. Moving to [facility] has been recommended and declined by pt . He has been hospitalized 5X since October 2022. He has difficulty managing his medications, health care appointments and nutrition. He demonstrates mild cognitive deficits in the area of memory and appears to lack insight into his health conditions. He would benefit from weekly medication setup and wellness checks from nursing. This has been recommended and declined by the pt. because he wants to be able to drive and leave his home rather than receive homecare. Pt. has PT evaluation scheduled for later in March for strengthening for ambulation and stairs. He may also benefit from additional cognitive assessment to determine safe completion of IADLs and levels of assistance needed. Other Recommendations Post Emergency Numbers,Post Medication List,Post Advance Care Direct.,Life Line,Assist w/Lawn Work,Assist w/Snow Removal,Assist w/Housekeeping Treatment Minutes Untimed Treatment Minutes 30 Timed Treatment Minutes 45 Total Timed & Untimed Treatment Minutes 75 I Certify That: I Certify That: Therapy Services Provided, Therapy Plan Established, Therapy Plan Reviewed Home Safety Eval Billing Units Billing Units Self Care/Home Management 3
== END 2023-07-26 23:59 | disposition home or self-care (01) ==
PROVIDERS: PCP Family Medicine; Visit Provider Family Medicine
DX: R62.7 Adult failure to thrive (principal); Z51.89 Encounter for other specified aftercare
CPT/HCPCS: 97166; 97535

== ENCOUNTER 2023-04-05 15:58 | Outpatient (REF) | payer MEDICARE, BC, SELFPAY ==
[2023-04-05 16:59] LABS: Chloride* 108 mmol/L (96-114); Potassium* 6.2 mmol/L (3.6-5.1); Sodium* 139 mmol/L (135-149)
[2023-04-05 17:00] LABS: Anion Gap 10 mEq/L (7-15); Blood Urea Nitrogen* 37 mg/dL (7-30); Calcium* 8.5 mg/dL (8.4-10.6); Carbon Dioxide* 21 mmol/L (20-32); Creatinine* 2.1 mg/dL (0.5-1.5); Estimated Glomerular Filt Rate 33 ml/min; Glucose* 174 mg/dL (60-115); White Blood Count* 3.15 K/uL (4.50-11.00)
[2023-04-05 17:03] LABS: Hematocrit 35.2 % (37.0-53.0); Hemoglobin* 11.3 gm/dL (13.5-17.5); Mean Corpuscular Volume 99 fL (80-100); Red Blood Count 3.55 m/uL (4.30-5.90)
[2023-04-05 17:04] LABS: Eosinophils Percent Auto 5.7 % (0.0-7.0); Lymphocytes Percent Auto 34.9 % (20-44); Mean Corpuscular HGB Conc 32 gm/dL (32-36); Mean Corpuscular Hemoglobin 32 pg (26-34); Monocytes Percent Auto 7.3 % (0.0-11.0); Neutrophils Percent Auto 51.5 % (42.0-72.0); Platelet Count* 124 K/uL (140-440); RDW Coefficient of Variation % 13.9 % (11.5-15.5)
[2023-04-05 17:05] LABS: Basophils Percent Auto 0.3 % (0.0-3.0); Immature Granulocytes Pct Auto 0.3 %; Slide Review Reflex No
[2023-04-05 17:11] LABS: Albumin* 3.6 g/dL (3.3-5.0)
[2023-04-05 17:14] LABS: Aspartate Amino Transferase* 17 U/L (12-35); Bilirubin Total* 0.4 mg/dL (0.1-1.5); Magnesium* 1.3 mg/dL (1.5-2.6); Total Protein* 6.3 g/dL (6.0-8.3)
[2023-04-05 17:15] LABS: Alanine Aminotransferase* 10 U/L (4-50); Alkaline Phosphatase* 58 U/L (40-150)
[2023-04-08 15:05] LABS: Tacrolimus by HPLC-MS/MS 9.3 ng/mL
== END 2023-04-05 15:59 | disposition home or self-care (01) ==
LOC: NPINS 15:58
PROVIDERS: PCP Family Medicine; Visit Provider Internal Medicine
DX: R79.89 Other specified abnormal findings of blood chemistry (principal); I50.9 Heart failure, unspecified; E87.5 Hyperkalemia; E11.9 Type 2 diabetes mellitus without complications; I10 Essential (primary) hypertension; E78.5 Hyperlipidemia, unspecified; Z94.4 Liver transplant status
CPT/HCPCS: 80048; 80076; 80197; 83735; 85025

== ENCOUNTER 2023-04-06 13:59 | Outpatient (REF) | payer MEDICARE, BC, SELFPAY ==
[2023-04-06 15:00] LABS: Chloride* 106 mmol/L (96-114); Sodium* 138 mmol/L (135-149)
[2023-04-06 15:03] LABS: Anion Gap 8 mEq/L (7-15); Blood Urea Nitrogen* 39 mg/dL (7-30); Carbon Dioxide* 24 mmol/L (20-32); Creatinine* 1.9 mg/dL (0.5-1.5); Estimated Glomerular Filt Rate 37 ml/min; Glucose* 160 mg/dL (60-115)
[2023-04-06 15:04] LABS: Calcium* 8.6 mg/dL (8.4-10.6)
== END 2023-04-06 14:00 | disposition home or self-care (01) ==
LOC: NPINS 13:59
PROVIDERS: PCP Family Medicine; Visit Provider Internal Medicine
DX: Z94.0 Kidney transplant status (principal); R79.89 Other specified abnormal findings of blood chemistry
CPT/HCPCS: 80048

== ENCOUNTER 2023-04-20 14:50 | Outpatient (REF) | payer MEDICARE, BC, SELFPAY ==
[2023-04-20 18:11] LABS: Chloride* 104 mmol/L (96-114); Potassium* 4.9 mmol/L (3.6-5.1); Sodium* 140 mmol/L (135-149)
[2023-04-20 18:14] LABS: Anion Gap 11 mEq/L (7-15); Blood Urea Nitrogen* 43 mg/dL (7-30); Carbon Dioxide* 25 mmol/L (20-32); Creatinine* 2.8 mg/dL (0.5-1.5); Estimated Glomerular Filt Rate 24 ml/min
[2023-04-20 18:15] LABS: Calcium* 8.9 mg/dL (8.4-10.6); Glucose* 128 mg/dL (60-115)
== END 2023-04-20 14:51 | disposition home or self-care (01) ==
LOC: NPINS 14:50
PROVIDERS: Visit Provider Internal Medicine
DX: R79.89 Other specified abnormal findings of blood chemistry (principal); Z94.0 Kidney transplant status
CPT/HCPCS: 80048; 80197

== ENCOUNTER 2023-05-11 15:12 | Outpatient (REF) | payer MEDICARE, BC, SELFPAY ==
[2023-05-11 17:03] LABS: Basophils Percent Auto 0.7 % (0.0-3.0); Eosinophils Percent Auto 4.6 % (0.0-7.0); Hematocrit 31.6 % (37.0-53.0); Hemoglobin* 10.2 gm/dL (13.5-17.5); Lymphocytes Percent Auto 39.4 % (20-44); Mean Corpuscular HGB Conc 32 gm/dL (32-36); Mean Corpuscular Hemoglobin 32 pg (26-34); Mean Corpuscular Volume 100 fL (80-100); Monocytes Percent Auto 10.4 % (0.0-11.0); Neutrophils Percent Auto 43.9 % (42.0-72.0); Platelet Count* 153 K/uL (140-440); RDW Coefficient of Variation % 15.5 % (11.5-15.5); Red Blood Count 3.15 m/uL (4.30-5.90); White Blood Count* 3.07 K/uL (4.50-11.00)
[2023-05-11 17:11] LABS: Slide Review Reflex No
[2023-05-11 17:13] LABS: Chloride* 110 mmol/L (96-114); Sodium* 138 mmol/L (135-149)
[2023-05-11 17:14] LABS: Potassium* 5.8 mmol/L (3.6-5.1)
[2023-05-11 17:16] LABS: Anion Gap 4 mEq/L (7-15); Carbon Dioxide* 24 mmol/L (20-32); Creatinine* 1.7 mg/dL (0.5-1.5); Estimated Glomerular Filt Rate 43 ml/min
[2023-05-11 17:17] LABS: Blood Urea Nitrogen* 28 mg/dL (7-30); Calcium* 8.5 mg/dL (8.4-10.6); Glucose* 115 mg/dL (60-115)
[2023-05-14 10:07] LABS: Tacrolimus by HPLC-MS/MS 4.9 ng/mL
== END 2023-05-11 15:13 | disposition home or self-care (01) ==
LOC: NPINS 15:12
PROVIDERS: Visit Provider Internal Medicine
DX: Z94.0 Kidney transplant status (principal); R79.89 Other specified abnormal findings of blood chemistry
CPT/HCPCS: 80048; 80197; 85025

== ENCOUNTER 2023-09-11 16:13 | Inpatient (IN) | payer MEDICARE, BC, SELFPAY ==
[2023-09-11] VITALS (21 sets, daily range): BP systolic 167–204; BP diastolic 98–125; PULSE 110–131; RESP 18–28; TEMP 36.6–37; O2SAT 94–99; BMI 29.2; BMI 28.7
--- NOTE | 2023-09-11 16:23 | ED_ITS ---
HPI - General Adult General Date Seen: 09/11/23 Chief complaint: Altered Mental Status Stated complaint: Ambulance Time Seen by Provider: 09/11/23 16:23 History of Present Illness HPI narrative: 73-year-old gentleman with a history BPH, type 2 diabetes, diabetic neuropathy, GERD, CHF, and also history of kidney and liver transplant. History of recurrent C diff infections. Distant history of alcoholism. Most recent visit to our ER was 03/18/2023. Was admitted for possible sepsis. Discharged on 03/22. Diagnosed with chronic C diff infection. Was on oral vancomycin. He was having trouble managing his to insulin pump so was taken off insulin for his diabetes. He is brought to the ER today by EMS. Patient does have altered mental status and mild nonfocal confusion. He is not a good historian and seems to have limited short-term memory. History is limited. Per report family apparently had not heard from him in 3 days so they had ambulance bring him here to the ER. Per report he has a history of diabetes but is not good on controlling it. He says his sugars have been well controlled lately (however sugar is 440 at presentation here to the ER). His complaint is that he is having pain is upper abdomen. His record indicates that he has a history of C diff, but He denies any recent diarrhea. He denies any bloody or black stools. No chest pain. No cough. He denies any recent falls. Related Data Home Medications ?Medication ?Instructions ?Recorded ?Confirmed aspirin 81 mg tablet,delayed 81 mg PO DAILY 10/22/21 06/28/23 release (Adult Aspirin Regimen) tacrolimus 0.5 mg capsule, 2 mg PO BID 05/17/22 06/28/23 immediate-release tamsulosin 0.4 mg capsule 0.4 mg PO DAILY 10/26/22 06/28/23 clopidogrel 75 mg tablet 75 mg PO DAILY 11/01/22 06/28/23 azathioprine 50 mg tablet 150 mg PO DAILY 03/01/23 06/28/23 doxazosin 4 mg tablet 4 mg PO HS 03/01/23 06/28/23 magnesium oxide 400 mg (241.3 mg 800 mg PO BID 04/06/23 06/28/23 magnesium) tablet multivitamin (Daily Multi-Vitamin 1 tab PO QDAY 04/06/23 06/28/23 tablet) sodium bicarbonate 650 mg tablet 650 mg PO BID 05/11/23 06/28/23 furosemide 20 mg tablet 20 mg PO QDAY PRN 06/28/23 Previous Rx's ?Medication ?Instructions ?Recorded famotidine 40 mg tablet 40 mg PO QHS #90 tabs 04/06/23 citalopram 40 mg tablet 40 mg PO QDAY #90 tabs 05/11/23 gabapentin 300 mg capsule 300 mg PO BID #180 caps 05/11/23 atorvastatin 20 mg tablet 20 mg PO HS #90 tabs 06/02/23 ergocalciferol (vitamin D2) 50 mcg 50 mcg PO QDAY #90 tabs 06/15/23 (2,000 unit) tablet glipizide 5 mg tablet 5 mg PO DAILYWM #30 tabs 08/23/23 fentanyl 12 mcg/hr transdermal 1 patch transdermal Q48H #15 ea 08/25/23 patch Allergies Allergy/AdvReac Type Severity Reaction Status Date / Time phytonadione (vitamin K1) Allergy Intermediate Unknown Verified 06/28/23 11:22 [facility] Medical History (Updated 09/11/23 @ 22:08 by Black Landis MD) Recurrent colitis due to Clostridioides difficile ?A04.71 - Enterocolitis due to Clostridium difficile, recurrent (ICD-10) Major depression, recurrent ?F33.9 - Major depressive disorder, recurrent, unspecified (ICD-10) Chronic right hip pain ?M25.551 - Pain in right hip (ICD-10) ?G89.29 - Other chronic pain (ICD-10) Hypomagnesemia ?E83.42 - Hypomagnesemia (ICD-10) Type 2 diabetes mellitus treated with insulin ?E11.9 - Type 2 diabetes mellitus without complications (ICD-10) ?Z79.4 - intermediate (current) use of insulin (ICD-10) BPH (benign prostatic hyperplasia) ?N40.0 - Benign prostatic hyperplasia without lower urinary tract symptoms (ICD-10) Penile ulcer ?N48.5 - Ulcer of penis (ICD-10) Low back pain ?M54.50 - Low back pain, unspecified (ICD-10) History of non-anemic folic acid deficiency ?Z86.39 - Personal history of other endocrine, nutritional and metabolic disease (ICD-10) History of colonic polyps (05/10/13) ?Z86.010 - Personal history of colonic polyps (ICD-10) Folic acid deficiency (01/22/16) ?E53.8 - Deficiency of other specified B group vitamins (ICD-10) Erectile dysfunction ?N52.9 - Male erectile dysfunction, unspecified (ICD-10) Controlled substance agreement signed (04/19/18) ?Z79.899 - Other nursing home (current) drug therapy (ICD-10) Pancytopenia ?D61.818 - Other pancytopenia (ICD-10) Chronic kidney disease (CKD) ?N18.9 - Chronic kidney disease, unspecified (ICD-10) History of ETOH abuse ?F10.11 - Alcohol abuse, in remission (ICD-10) CHF (congestive heart failure) ?I50.9 - Heart failure, unspecified (ICD-10) Mitral regurgitation ?I34.0 - Nonrheumatic mitral (valve) insufficiency (ICD-10) Diabetic neuropathy ?E11.40 - Type 2 diabetes mellitus with diabetic neuropathy, unspecified (ICD-10) GERD (gastroesophageal reflux disease) ?K21.9 - Gastro-esophageal reflux disease without esophagitis (ICD-10) Hyperlipidemia ?E78.5 - Hyperlipidemia, unspecified (ICD-10) HTN (hypertension) ?I10 - Essential (primary) hypertension (ICD-10) Diverticulosis ?K57.90 - Diverticulosis of intestine, part unspecified, without perforation or abscess without bleeding (ICD-10) Surgical History (Updated 04/05/23 @ 23:47 by Rubén Boyle MD) Liver transplant recipient ?Z94.4 - Liver transplant status (ICD-10) Kidney transplant recipient ?Z94.0 - Kidney transplant status (ICD-10) History of coronary artery stent placement ?Z95.5 - Presence of coronary angioplasty implant and graft (ICD-10) S/P TAVR (transcatheter aortic valve replacement) ?Z95.2 - Presence of prosthetic heart valve (ICD-10) History of liver transplant (07/10/16) ?Z94.4 - Liver transplant status (ICD-10) History of decompression of ulnar nerve (1979) ?Z98.890 - Other specified postprocedural states (ICD-10) History of cataract extraction (2017) ?Z98.49 - Cataract extraction status, unspecified eye (ICD-10) 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) ?Z96.643 - Presence of artificial hip joint, bilateral (ICD-10) History of hip replacement ?Z96.649 - Presence of unspecified artificial hip joint (ICD-10) Hx of hernia repair ?Z98.890 - Other specified postprocedural states (ICD-10) ?Z87.19 - Personal history of other diseases of the digestive system (ICD-10) Family History Father Diabetes Coronary artery disease Sister Diabetes Social History Narrative: He lives in [place]. He lives by himself. He functions independently. He is retired. Remote history of smoking having quit about 20 years ago after a 10 pack year history. 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 Last drank in 2016 What is your current living situation?: I presently have a place to live Problems where you live: no known problems Problems where you live details: NA In the past 12 months, utilities in danger of being shut off: no In past 12 months, lack of transportation kept you from medical appts, meetings, work, or getting things needed for daily living: no In the past 12 mos, have been you worried that your food would run out before you had money to buy more?: never true In the past 12 mos, the food you bought just didn't last and you didn't have money to buy more?: never true Highest level of school completed/degree received: some college, no degree Smoking Status: Former smoker Do you use any of these nicotine containing products: None Second hand tobacco smoke exposure: No How often do you have a drink containing alcohol: never How often do you have six or more drinks on one occasion: Never AUDIT-C Alcohol total score: 0 Non-prescribed substance use: denies use Caffeine: No How often does anyone, including family, friends and others, physically hurt you : never How often does anyone, including family, friends and others, insult or talk down to you: never How often does anyone, including family, friends and others, threaten you with harm: never How often does anyone, including family, friends and others, scream or curse at you: never Little interest or pleasure in doing things: more than half the days Feeling down, depressed, or hopeless: nearly every day service: No Exam Narrative: Exam Narrative: Primary Survey: A- patent. Speech is slow but he is Speaking clearly. Phonation normal. No stridor. B- breathing easily. Lung sounds clear and equal. Oxygen saturation normal on room air C- no active bleeding. Blood pressure stable. Symmetric pulses and cap refill in 4 extremities. D- alert and oriented x3. GCS 15. No focal deficits. Constitutional: Appears well-developed and well-nourished. Alert, but seems to be mentating slowly. Answers questions slowly. Gaze is fixed straight ahead. Overall seems calm or possibly sedated. No anxiety or tremulousness. HENT: Head: Atraumatic. Nose: Nose normal. Mouth/Throat: Oral mucosa is clear but dry. no trismus. Visualized portions of the upper pharynx are normal. Difficult to visualize his entire posterior oropharynx. Eyes: Conjunctivae normal. EOM normal. Pupils equal, round, and reactive to light. No scleral icterus. Neck: Normal range of motion. Neck supple. No tracheal deviation present. No JVD. Cardiovascular: Tachycardic, regular rhythm. No gallop. No friction rub. No murmur heard. Symmetric radial and PT artery pulses Pulmonary/Chest: Effort normal. No stridor. No respiratory distress. No wheezes. No rales. No rhonchi . No tenderness. Abdominal: Soft. Bowel sounds normal. No distension. No mass. Left upper quad> right upper quadrant tenderness. No rebound. No guarding. No CVA tenderness Musculoskeletal: No bruising of the back. No C, T, L-spine tenderness. Pelvis stable. RUE: Normal range of motion. No tenderness. No deformity LUE: Normal range of motion. No tenderness. No deformity RLE: Normal range of motion. No edema. No tenderness. No deformity LLE: Normal range of motion. No edema. No tenderness. No deformity Neurological: Alert and oriented to person, and knows that he is in a hospital. Disoriented to day or month. Does not know the president.. Normal strength. Growth rank bilaterally 5/5. Biceps and triceps bilaterally 5/5. He has weakness affecting both of his legs symmetrically and has difficulty lifting his feet off the bed. He requires assistance to roll over for back exam. CN II-VII intact. No sensory deficit. GCS eye subscore is 4. GCS verbal subscore is 5. GCS motor subscore is 6. Normal coordination Skin: Skin is warm and dry. No rash noted. No pallor. Normal capillary refill. Psychiatric: Flat affect. No tremor. No anxiety. Const: Vital Signs, click to edit/add: Vital Signs - 24 hr 09/11/23 16:17 09/11/23 16:17 09/11/23 16:18 Temperature 98.0 F Pulse Rate 130 H 128 H Pulse Rate [Right Pulse Oximeter] 124 H Respiratory Rate 28 H Blood Pressure 167/98 H Blood Pressure [Le ft Upper Arm] 167/98 H Pulse Oximetry 95 95 95 Oxygen Delivery Me thod Room Air 09/11/23 16:30 09/11/23 16:45 09/11/23 17:00 Temperature Pulse Rate 127 H 128 H 131 H Pulse Rate [Right Pulse Oximeter] Respiratory Rate 22 Blood Pressure Blood Pressure [Le ft Upper Arm] Pulse Oximetry 94 97 97 Oxygen Delivery Me thod 09/11/23 17:31 09/11/23 17:32 09/11/23 17:45 Temperature Pulse Rate 130 H 119 H Pulse Rate [Right Pulse Oximeter] Respiratory Rate Blood Pressure 176/109 H Blood Pressure [Le ft Upper Arm] Pulse Oximetry 96 96 Oxygen Delivery Me thod 09/11/23 18:00 09/11/23 18:15 09/11/23 18:30 Temperature Pulse Rate 118 H 117 H 116 H Pulse Rate [Right Pulse Oximeter] Respiratory Rate Blood Pressure Blood Pressure [Le ft Upper Arm] Pulse Oximetry 96 97 98 Oxygen Delivery Me thod 09/11/23 18:45 09/11/23 19:00 09/11/23 19:15 Temperature Pulse Rate 119 H 118 H 120 H Pulse Rate [Right Pulse Oximeter] Respiratory Rate Blood Pressure Blood Pressure [Le ft Upper Arm] Pulse Oximetry 96 96 99 Oxygen Delivery Me thod 09/11/23 19:30 09/11/23 19:45 09/11/23 20:00 Temperature Pulse Rate 113 H 114 H 110 H Pulse Rate [Right Pulse Oximeter] Respiratory Rate Blood Pressure Blood Pressure [Le ft Upper Arm] Pulse Oximetry 96 97 96 Oxygen Delivery Me thod 09/11/23 20:15 Temperature Pulse Rate 110 H Pulse Rate [Right Pulse Oximeter] Respiratory Rate Blood Pressure Blood Pressure [Le ft Upper Arm] Pulse Oximetry 96 Oxygen Delivery Nj thod Course Vital Signs Vital signs: Initial Vital Signs Temperature 98.0 F 09/11/23 16:17 Temperature Source Temporal Artery Scan 09/11/23 16:17 Pulse Rate 130 H 09/11/23 16:17 Pulse Rhythm Regular 09/11/23 16:17 Pulse Strength 3+ Normal 09/11/23 16:17 Respiratory Rate 28 H 09/11/23 16:17 Blood Pressure 167/98 H 09/11/23 16:17 Blood Pressure Mean 121 H 09/11/23 16:17 Blood Pressure Position Supine 09/11/23 16:17 Pulse Oximetry 95 09/11/23 16:17 Oxygen Delivery Method Room Air 09/11/23 16:17 Vital Signs Temperature 98.0 F 09/11/23 16:17 Pulse Rate 130 H 09/11/23 16:17 Respiratory Rate 28 H 09/11/23 16:17 Blood Pressure 167/98 H 09/11/23 16:17 Pulse Oximetry 95 09/11/23 16:17 Oxygen Delivery Method Room Air 09/11/23 16:17 Temperature 98 F 09/11/23 20:54 Pulse Rate 118 H 09/11/23 20:54 Respiratory Rate 18 09/11/23 20:54 Blood Pressure 204/125 H 09/11/23 20:54 Pulse Oximetry 98 09/11/23 20:54 Oxygen Delivery Method Room Air 09/11/23 20:54 Medications Administered Medications: Generic Name Dose Route Start Last Admin Trade Name Freq PRN Reason Stop Dose Admin Piperacillin Sod/Tazobactam 100 mls @ 200 mls/hr 09/11/23 17:00 09/11/23 19:40 Sod 4.5 gm/ Sodium Chloride IVPB Infused Q6H FABY Infusion Discontinued Medications Generic Name Dose Route Start Last Admin Trade Name Freq PRN Reason Stop Dose Admin Insulin Human Regular 5 unit 09/11/23 18:03 09/11/23 18:43 Insulin Regular 100 Unit/Ml Inj SUBCUT 09/11/23 18:04 5 unit ONCE ONE Administration Lactated Ringer's 1,000 ml 09/11/23 16:48 09/11/23 17:56 Lactated Ringers 1000 Ml IV 09/11/23 16:49 1,000 ml ONCE ONE Administration Lactated Ringer's 1,000 ml 09/11/23 18:03 09/11/23 19:41 Lactated Ringers 1000 Ml IV 09/11/23 18:04 1,000 ml ONCE ONE Administration Pantoprazole Sodium 80 mg 09/11/23 18:54 09/11/23 19:41 Pantoprazole Sodium 40 Mg Inj IVP 09/11/23 18:55 80 mg ONCE ONE Administration Medical Decision Making MDM Narrative Medical decision making narrative: 73-year-old gentleman with a complex past medical history including poorly controlled diabetes, history of liver transplant and kidney transplant brought to the ER today by EMS for home after he had been out of contact with his family for 3 days. He has nonfocal altered mental status. One. Neuro. Does have confusion, slow cognition and altered mental status. Differential is broad. He is hyperglycemic. No evidence for DKA on VBG. Sodium normal. Head CT negative for intracranial bleeding or hydrocephalus. He denies headache or fever. He does not have a stiff neck. At this point overall clinical suspicion for encephalitis or meningitis is low so would hold off on lumbar puncture. It is possible that his mental status could be delirium related to some other medical problem or, most likely, infection. 2. Infectious disease. Concern is for possible sepsis or infection causing altered mental status. Started on IV Zosyn when he arrived here in the ER. No definite history of MRSA in his chart so hold off on vancomycin for now since it could be potentially nephrotoxic. At this point no definitive infection identified. COVID negative. Chest CT negative for pneumonia. Urinalysis negative for infection. Noncontrast CT abdomen pelvis shows no clear evidence for colitis, diverticulitis, appendicitis or other intra-abdominal infection. CT scan chest does show evidence for esophagitis. No definite evidence for mediastinitis or other clear source for sepsis. White blood cell count is mildly elevated 11.08. Venous lactic elevated at 3.4 but improved after lactated Ringer's down to 1.3. Blood pressure remained stable to hypertensive. Presented with a sinus tachycardia at about 130, improving. He has now completed almost 2 L of lactated Ringer's and heart rate is trending downward. I have ordered 1/3 L in this will continue while he is on the medical floor. At this point no clear evidence for septic shock. Not requiring central line or vasopressors. 3. Cardiac. Patient has no reports of chest pain but he is complaining of upper abdominal pain. EKG is obtained and shows sinus tachycardia but no definite arrhythmia. No definite ischemia. Troponin is abnormal at 0.15. Repeat troponin is flat at 0.14. At this point no clear evidence for ACS. Suspect abnormal troponin is probably related to underlying renal insufficiency. No evidence for fluid overload or pulmonary edema on chest CT. Oxygenating on room air. 4. Renal. Has a history of kidney transplant. Does have an acute kidney injury with creatinine increased from from previous baseline of 1.7 now up to 2.2. Suspect related to dehydration. Will obtain noncontrast CT scan rather than with contrast due to risk of contrast nephropathy in this setting. 5. Tox. Medical record indicates distant history of alcohol abuse. With altered mental status, tachycardia, hypertension, consider possible alcohol withdrawal but he does not have any anxiety, tremulousness, or other clear signs of withdrawal. Would hold off on benzos for now. No clear serotonergic medications on his med list cause serotonin syndrome. He is not displaying any rigidity to suggest NMS 6. Hepatic. Has history of liver transplant. LFTs fairly normal. Ammonia low. No clear evidence her hepatic encephalopathy. 7. Endocrine. Has a history of poorly controlled diabetes. Hyperglycemic with sugar of 440. Treated with subcutaneous insulin and IV crystalloids here in the ER. The VBG shows normal pH. No evidence for DKA. Consider possible no nketotic hyperosmolar syndrome causing his altered mental status but would expect more significant elevation in glucose. With ongoing altered mental status, sinus tachycardia, acute kidney injury, e levated troponin, and possible underlying infection patient clearly requires hospitalization. Discussed with our hospitalist, Dr. Shirley. She agrees that the patient should be admitted and can manage him here in [place]. She will accept him to the hospitalist service. Lab Data Labs: Lab Results 09/11/23 09/11/23 09/11/23 Range/Units 17:00 17:05 17:50 WBC 11.08 H (4.50-11.00) K/uL RBC 5.02 (4.30-5.90) m/uL Hgb 16.2 (13.5-17.5) gm/dL Hct 45.4 (37.0-53.0) % MCV 90 (80-100) fL MCH 32 (26-34) pg MCHC 36 (32-36) gm/dL RDW Coeff of [place] 13.4 (11.5-15.5) % Plt Count 193 (140-440) K/uL Neut % (Auto) 84.7 H (42.0-72.0) % Lymph % (Auto) 5.6 L (20-44) % [place] % (Auto) 9.3 (0.0-11.0) % Eos % (Auto) 0.0 (0.0-7.0) % Baso % (Auto) 0.1 (0.0-3.0) % Neut # (Auto) 9.40 H (1.7-7.0) K/uL Lymph # (Auto) 0.60 L (0.90-2.90) K/uL [place] # (Auto) 1.00 H (0.00-0.90) K/UL Eos # (Auto) 0.00 (0.00-0.50) K/uL Baso # (Auto) 0.00 (0.00-0.30) K/uL Abs Immat Gran (auto) 0.00 (0.00-0.30) K/uL Imm/Tot Granulo (auto) 0.3 % INR 1.02 (0.91-1.10) VBG pH 7.407 (7.32-7.43) VBG pCO2 35 L (40-50) mmHG VBG pO2 31.6 (25-47) mmHG VBG HCO3 22 (21-28) mmol/L Sodium 137 (135-149) mmol/L Potassium 5.1 (3.6-5.1) mmol/L Chloride 96 (96-114) mmol/L Carbon Dioxide 21 (20-32) mmol/L Anion Gap 20 H (7-15) mEq/L BUN 41 H (7-30) mg/dL Creatinine 2.2 H (0.5-1.5) mg/dL Estimated Creat Clear 33.80 Estimated GFR 31 ml/min Glucose 444 H* (60-115) mg/dL Lactate 3.4 H (0.5-1.9) mmol/L Calcium 10.3 (8.4-10.6) mg/dL Total Bilirubin 3.1 H (0.1-1.5) mg/dL AST 26 (12-35) U/L ALT 15 (4-50) U/L Alkaline Phosphatase 94 (40-150) U/L Ammonia < 9.0 L (13.1-30.0) umol/L Troponin I 0.15 H* (0.01-0.04) ng/mL C-Reactive Protein 1.1 H (0.5-1.0) mg/dL Total Protein 9.6 H (6.0-8.3) g/dL Albumin 5.6 H (3.3-5.0) g/dL Lipase 41 (23-300) U/L Urine Color Yellow (Yellow) Urine Appearance Clear (Clear) Urine pH 5.5 (5.0-8.5) Ur Specific [place] >= 1.030 (1.000-1.030) Urine Protein 2+ A (Negative) Urine Glucose (UA) 2+ A (Negative) Urine Ketones 3+ A (Negative) Urine Blood 1+ A (Negative) Urine Nitrite Negative (Negative) Urine Bilirubin 1+ A (Negative) Urine Urobilinogen 0.2 (0.2-1.0) Ur Leukocyte Esterase Negative (Negative) Urine RBC 0-2 (0-2) Urine WBC 0-2 (0-5) Ur Squamous Epith Cells Few (None-Few) Urine Bacteria None (None) Urine Opiates Screen Negative (Negative) Ur Oxycodone Screen Negative (Negative) Urine Methadone Screen Negative (Negative) Ur Barbiturates Screen Negative (Negative) U Tricyclic Antidepress Negative (Negative) Ur Phencyclidine Scrn Negative (Negative) Ur Amphetamines Screen Negative (Negative) U Methamphetamines Scrn Negative (Negative) U Benzodiazepines Scrn Negative (Negative) Urine Cocaine Screen Negative (Negative) U Marijuana (THC) Screen POSITIVE A (Negative) Ur Drug Screen Comment See Note Ethyl Alcohol < 0.01 L (0.01-0.03) % SARS-CoV-2 (PCR) Negative SARS-CoV-2 (Negative) Influenza Type A (PCR) Negative PCR FLU A (Negative) Influenza Type B (PCR) Negative PCR FLU B (Negative) RSV (PCR) Negative PCR RSV (Negative) 09/11/23 09/11/23 Range/Units 18:42 19:16 WBC (4.50-11.00) K/uL RBC (4.30-5.90) m/uL Hgb (13.5-17.5) gm/dL Hct (37.0-53.0) % MCV (80-100) fL MCH (26-34) pg MCHC (32-36) gm/dL RDW Coeff of [place] (11.5-15.5) % Plt Count (140-440) K/uL Neut % (Auto) (42.0-72.0) % Lymph % (Auto) (20-44) % [place] % (Auto) (0.0-11.0) % Eos % (Auto) (0.0-7.0) % Baso % (Auto) (0.0-3.0) % Neut # (Auto) (1.7-7.0) K/uL Lymph # (Auto) (0.90-2.90) K/uL [place] # (Auto) (0.00-0.90) K/UL Eos # (Auto) (0.00-0.50) K/uL Baso # (Auto) (0.00-0.30) K/uL Abs Immat Gran (auto) (0.00-0.30) K/uL Imm/Tot Granulo (auto) % INR (0.91-1.10) VBG pH (7.32-7.43) VBG pCO2 (40-50) mmHG VBG pO2 (25-47) mmHG VBG HCO3 (21-28) mmol/L Sodium (135-149) mmol/L Potassium (3.6-5.1) mmol/L Chloride (96-114) mmol/L Carbon Dioxide (20-32) mmol/L Anion Gap (7-15) mEq/L BUN (7-30) mg/dL Creatinine (0.5-1.5) mg/dL Estimated Creat Clear Estimated GFR ml/min Glucose (60-115) mg/dL Lactate 1.3 (0.5-1.9) mmol/L Calcium (8.4-10.6) mg/dL Total Bilirubin (0.1-1.5) mg/dL AST (12-35) U/L ALT (4-50) U/L Alkaline Phosphatase (40-150) U/L Ammonia (13.1-30.0) umol/L Troponin I 0.14 H* (0.01-0.04) ng/mL C-Reactive Protein (0.5-1.0) mg/dL Total Protein (6.0-8.3) g/dL Albumin (3.3-5.0) g/dL Lipase (23-300) U/L Urine Color (Yellow) Urine Appearance (Clear) Urine pH (5.0-8.5) Ur Specific [place] (1.000-1.030) Urine Protein (Negative) Urine Glucose (UA) (Negative) Urine Ketones (Negative) Urine Blood (Negative) Urine Nitrite (Negative) Urine Bilirubin (Negative) Urine Urobilinogen (0.2-1.0) Ur Leukocyte Esterase (Negative) Urine RBC (0-2) Urine WBC (0-5) Ur Squamous Epith Cells (None-Few) Urine Bacteria (None) Urine Opiates Screen (Negative) Ur Oxycodone Screen (Negative) Urine Methadone Screen (Negative) Ur Barbiturates Screen (Negative) U Tricyclic Antidepress (Negative) Ur Phencyclidine Scrn (Negative) Ur Amphetamines Screen (Negative) U Methamphetamines Scrn (Negative) U Benzodiazepines Scrn (Negative) Urine Cocaine Screen (Negative) U Marijuana (THC) Screen (Negative) Ur Drug Screen Comment Ethyl Alcohol (0.01-0.03) % SARS-CoV-2 (PCR) (Negative) Influenza Type A (PCR) (Negative) Influenza Type B (PCR) (Negative) RSV (PCR) (Negative) ECG Data Attestation: I personally reviewed and interpreted this ECG as follows: Interpretation: Sinus tachycardia Rate: 121 SC: 168 QRS axis: Normal axis. No pathologic Q-waves. ST segment/T wave: No ST segment elevation or depression QTc: 420 Discharge Plan Discharge Clinical Impression: Acute kidney injury, Acute alteration in mental status, Acute hyperglycemia, Elevated troponin
--- NOTE | 2023-09-11 16:27 | CRLHL7_ITS ---
For Patients: As a result of the Century Cures Act, medical imaging exams and procedure reports are released immediately into your electronic medical record. You may view this report before your referring provider. If you have questions, please contact your health care provider. Indication: Altered mental status, confusion. Technique: Noncontrast CT of the head with multiplanar reconstruction utilizing bone and soft tissue algorithms. Comparison: None available. Findings: No acute intracranial hemorrhage. Scattered hypoattenuation within the supratentorial white matter, nonspecific, but typical of chronic small vessel ischemic changes. Mild diffuse parenchymal volume loss. No ventricular obstruction. No significant midline shift. Atherosclerotic calcification of the carotid siphons. No suspicious calvarial lesion. Bilateral pseudophakia. The imaged paranasal sinuses and mastoid air cells are predominantly clear. Impression: 1. No acute intracranial abnormality. 2. Mild diffuse parenchymal volume loss and scattered hypoattenuation within the supratentorial white matter typical of chronic small vessel ischemic changes. Please note that all CT scans at this facility use dose modulation, iterative reconstruction, and/or weight-based dosing when appropriate to reduce radiation dose to as low as reasonably achievable. Dictated by El Thayer MD @ 09/11/2023 5:47:33 PM (Electronically Signed)
--- NOTE | 2023-09-11 16:44 | CRLHL7_ITS ---
For Patients: As a result of the 21st Century Cures Act, medical imaging exams and procedure reports are released immediately into your electronic medical record. You may view this report before your referring provider. If you have questions, please contact your health care provider. INDICATION: Altered mental status, confusion, abdominal pain, creatinine 2.7. History of kidney and liver transplant. TECHNIQUE: CT of the chest, abdomen, and pelvis without IV contrast. Coronal and sagittal reconstructions. COMPARISON: CT chest, abdomen, pelvis 03/18/2023. FINDINGS: Chest: Normal heart size. Normal caliber thoracic aorta and central pulmonary arteries. Status post aortic valve repair. Coronary artery calcifications and/or stents. Mitral annulus calcifications. No pericardial effusion. No thoracic lymphadenopathy. The thyroid gland is normal in appearance. No focal consolidation, pleural effusion, or pneumothorax. Tiny calcified granuloma posterior left upper lobe. No suspicious pulmonary nodules. No central endobronchial lesion or significant bronchial wall thickening. Since prior exam, there is new wall thickening of the mid to distal esophagus with surrounding edema. Findings are likely inflammatory such as esophagitis. Mild degenerative changes of the spine. Abdomen/pelvis: Postoperative changes of liver transplant and cholecystectomy with multiple surgical clips. The unenhanced liver, spleen, and adrenal glands are normal in appearance. Mild diffuse pancreatic parenchymal atrophy. No biliary dilation. The [place] kidneys are mildly atrophic. Stable left renal cyst. No hydronephrosis or ureteral dilation. No obstructing urinary calculi identified, however the distal ureters are obscured by streak artifact in the pelvis. The visualized bladder appears normal. The prostate gland is not well seen. There is a right lower quadrant transplant kidney in place with mild perinephric edema and no hydronephrosis. No small bowel dilation. Moderate amount of stool throughout the colon. Colonic diverticulosis without evidence of diverticulitis. Negative appendix. No intraperitoneal free air or fluid. No lymphadenopathy. Aortoiliac vascular calcifications. Small fat containing umbilical and right inguinal hernias. Moderate-sized fat containing left inguinal hernia. Stable rim calcified nodule in the left pelvis. Mild degenerative changes of the spine. Bilateral total hip arthroplasties which cause streak artifact in the pelvis. IMPRESSION: 1. New wall thickening of the mid to distal esophagus with surrounding edema. Findings suggest esophagitis. This could be further evaluated with endoscopy. 2. Mild perinephric edema about the right lower quadrant transplant kidney similar to prior exam. This could be further evaluated with ultrasound if clinically indicated. 3. No other acute findings in the chest, abdomen, or pelvis on this noncontrast exam. Please note that all CT scans at this facility use dose modulation, iterative reconstruction, and/or weight-based dosing when appropriate to reduce radiation dose to as low as reasonably achievable. Dictated by Nayla Batres MD @ 09/11/2023 6:26:36 PM (Electronically Signed)
[2023-09-11 17:06] LABS: HCO3 VBG 22 mmol/L (21-28); PCO2 VBG 35 mmHG (40-50); PO2 VBG 31.6 mmHG (25-47); pH VBG 7.407 (7.32-7.43)
[2023-09-11 17:08] LABS: Basophils Percent Auto 0.1 % (0.0-3.0); Hematocrit 45.4 % (37.0-53.0); Hemoglobin* 16.2 gm/dL (13.5-17.5); Immature Granulocytes Pct Auto 0.3 %; Lactate Sepsis w/Reflex* 3.4 mmol/L (0.5-1.9); Lymphocytes Percent Auto 5.6 % (20-44); Mean Corpuscular HGB Conc 36 gm/dL (32-36); Mean Corpuscular Hemoglobin 32 pg (26-34); Mean Corpuscular Volume 90 fL (80-100); Monocytes Percent Auto 9.3 % (0.0-11.0); Neutrophils Percent Auto 84.7 % (42.0-72.0); Platelet Count* 193 K/uL (140-440); RDW Coefficient of Variation % 13.4 % (11.5-15.5); Red Blood Count 5.02 m/uL (4.30-5.90); White Blood Count* 11.08 K/uL (4.50-11.00)
[2023-09-11 17:09] LABS: Slide Review Reflex No
[2023-09-11 17:22] LABS: Albumin* 5.6 g/dL (3.3-5.0); Chloride* 96 mmol/L (96-114); Sodium* 137 mmol/L (135-149)
[2023-09-11 17:23] LABS: Potassium* 5.1 mmol/L (3.6-5.1)
[2023-09-11 17:25] LABS: Alkaline Phosphatase* 94 U/L (40-150); Anion Gap 20 mEq/L (7-15); Aspartate Amino Transferase* 26 U/L (12-35); Bilirubin Total* 3.1 mg/dL (0.1-1.5); Carbon Dioxide* 21 mmol/L (20-32); Creatinine* 2.2 mg/dL (0.5-1.5); Estimated Glomerular Filt Rate 31 ml/min; INR 1.02 (0.91-1.10); Total Protein* 9.6 g/dL (6.0-8.3)
[2023-09-11 17:26] LABS: Alanine Aminotransferase* 15 U/L (4-50); Blood Urea Nitrogen* 41 mg/dL (7-30); Calcium* 10.3 mg/dL (8.4-10.6)
[2023-09-11 17:28] LABS: Ammonia* < 9.0 umol/L (13.1-30.0); C Reactive Protein* 1.1 mg/dL (0.5-1.0)
[2023-09-11 17:29] LABS: Lipase* 41 U/L (23-300)
[2023-09-11 17:33] LABS: Ethanol* < 0.01 % (0.01-0.03); Glucose* 444 mg/dL (60-115)
[2023-09-11 17:38] LABS: Troponin I* 0.15 ng/mL (0.01-0.04)
[2023-09-11 17:49] LABS: PCR FLU A Negative PCR FLU A (Negative); PCR FLU B Negative PCR FLU B (Negative); PCR RSV Negative PCR RSV (Negative); SARS PCR* Negative SARS-CoV-2 (Negative)
[2023-09-11 17:56] LABS: Appearance Urine Clear (Clear); Bilirubin Urine 1+ (Negative); Blood Urine 1+ (Negative); Color Urine Yellow (Yellow); Glucose Urine 2+ (Negative); Ketones Urine 3+ (Negative); Leukocyte Esterase Urine Negative (Negative); Nitrite Urine Negative (Negative); Protein Urine 2+ (Negative); Specific Gravity Urine >= 1.030 (1.000-1.030); Urobilinogen Urine 0.2 (0.2-1.0); pH Urine 5.5 (5.0-8.5)
[2023-09-11] MEDS: LACTATED RINGERS 1000 ML IV ×3 (17:56→22:45)
[2023-09-11 18:09] LABS: RBC Urine 0-2 (0-2); Squamous Epithelial Cell Urine Few (None-Few); WBC Urine 0-2 (0-5)
[2023-09-11 18:46] LABS: Lactate Sepsis 2 Hour 1.3 mmol/L (0.5-1.9)
[2023-09-11] MEDS: PIPERACILLIN/TAZOBACTAM 4.5 GM in 0.9 % SODIUM CHLORIDE Mini-bag 100 ML IVPB (18:52)
[2023-09-11] MEDS: PANTOPRAZOLE SODIUM 40 MG INJ 80 MG IVP (19:41)
[2023-09-11 19:49] LABS: Troponin I* 0.14 ng/mL (0.01-0.04)
[2023-09-11 21:29] LABS: Amphetamine Screen Urine Negative (Negative); Barbiturate Screen Urine Negative (Negative); Benzodiazepines Screen Urine Negative (Negative); Cannabinoid Screen Urine POSITIVE (Negative); Cocaine Screen Urine Negative (Negative); Methadone Screen Urine Negative (Negative); Methamphetamines Screen Urine Negative (Negative); Opiate Screen Urine Negative (Negative); Oxycodone Screen Urine Negative (Negative); Phencyclidine Screen Urine Negative (Negative); Tricyclic Antidepressant Urine Negative (Negative)
[2023-09-11 21:54] LABS: Lactate* 1.8 mmol/L (0.5-1.9)
--- NOTE | 2023-09-11 22:13 | PM.IMHP1 ---
Hospitalist- H&P: HPI History of Present Illness Time Seen by Provider: 21:30 Date Seen: 09/11/23 Chief complaint: Ambulance Narrative: Bari Mora is a 73 year old male chronically immunocompromised with a history of liver and kidney transplant, history of alcohol use, recurrent C diff colitis and diarrhea, type 2 diabetes, coronary artery disease, and hypertension whose brother found him sleeping in bed today, difficult to arouse. I spoke with his brother, Michael, over the phone this evening. Lito has had episodes like this before and was here last March for something similar. When discharged from the hospital in March, he was set up with a county nurse to come in set up medications for him, but somehow this fell through and Michael thinks that this never actually happened. Lito has been managing his own meds. According to Dr. Astorga's clinic notes, Lito has continued to have diarrhea from a C diff episode in February and apparently never took the long course of vancomycin that was prescribed for him when Dr. Boyle saw Lito in June, he referred him to [facility] and gave him the long course of vancomycin for presumed C diff, although a C diff sample was not obtained at that time. It appears that the referral was put in, but Michael thinks that Lito never followed through with this. Michael last spoke with Lito last Tuesday or and Lito was supposed to come over to Michael's house later that day, but never did. Michael notes that this is not unusual and so he did not think much of it. Today he went to check on Lito and found him in his bed sleeping. The lawn had not been cared for for weeks although the house appeared clean. Lito was asleep in the bed even though kitchen faucet was running full stream. Lito would not get up out of bed, so Michael called 911. Lito told Michael that he had not taken any pills yet today. Michael found the pillbox and noticed it was empty. Lito is unable to give much history, but does say that he normally wears a fentanyl patch but does not have 1 on today. He has no idea why. Review of Systems Status of ROS: Reports: unobtainable due to mental status [facility] Medical History HTN (hypertension) ?I10 - Essential (primary) hypertension (ICD-10) Type 2 diabetes mellitus ?E11.9 - Type 2 diabetes mellitus without complications (ICD-10) Recurrent colitis due to Clostridioides difficile ?A04.71 - Enterocolitis due to Clostridium difficile, recurrent (ICD-10) Major depression, recurrent ?F33.9 - Major depressive disorder, recurrent, unspecified (ICD-10) Chronic right hip pain ?M25.551 - Pain in right hip (ICD-10) ?G89.29 - Other chronic pain (ICD-10) Hypomagnesemia ?E83.42 - Hypomagnesemia (ICD-10) BPH (benign prostatic hyperplasia) ?N40.0 - Benign prostatic hyperplasia without lower urinary tract symptoms (ICD-10) Penile ulcer ?N48.5 - Ulcer of penis (ICD-10) Low back pain ?M54.50 - Low back pain, unspecified (ICD-10) History of non-anemic folic acid deficiency ?Z86.39 - Personal history of other endocrine, nutritional and metabolic disease (ICD-10) History of colonic polyps (05/10/13) ?Z86.010 - Personal history of colonic polyps (ICD-10) Folic acid deficiency (01/22/16) ?E53.8 - Deficiency of other specified B group vitamins (ICD-10) Erectile dysfunction ?N52.9 - Male erectile dysfunction, unspecified (ICD-10) Controlled substance agreement signed (04/19/18) ?Z79.899 - Other technician terminal and repeater (current) drug therapy (ICD-10) Pancytopenia ?D61.818 - Other pancytopenia (ICD-10) Chronic kidney disease (CKD) ?N18.9 - Chronic kidney disease, unspecified (ICD-10) History of ETOH abuse ?F10.11 - Alcohol abuse, in remission (ICD-10) CHF (congestive heart failure) ?I50.9 - Heart failure, unspecified (ICD-10) Mitral regurgitation ?I34.0 - Nonrheumatic mitral (valve) insufficiency (ICD-10) Diabetic neuropathy ?E11.40 - Type 2 diabetes mellitus with diabetic neuropathy, unspecified (ICD-10) GERD (gastroesophageal reflux disease) ?K21.9 - Gastro-esophageal reflux disease without esophagitis (ICD-10) Hyperlipidemia ?E78.5 - Hyperlipidemia, unspecified (ICD-10) Diverticulosis ?K57.90 - Diverticulosis of intestine, part unspecified, without perforation or abscess without bleeding (ICD-10) Surgical History Liver transplant recipient ?Z94.4 - Liver transplant status (ICD-10) Kidney transplant recipient ?Z94.0 - Kidney transplant status (ICD-10) History of coronary artery stent placement ?Z95.5 - Presence of coronary angioplasty implant and graft (ICD-10) S/P TAVR (transcatheter aortic valve replacement) ?Z95.2 - Presence of prosthetic heart valve (ICD-10) History of liver transplant (07/10/16) ?Z94.4 - Liver transplant status (ICD-10) History of decompression of ulnar nerve (1979) ?Z98.890 - Other specified postprocedural states (ICD-10) History of cataract extraction (2017) ?Z98.49 - Cataract extraction status, unspecified eye (ICD-10) 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) ?Z96.643 - Presence of artificial hip joint, bilateral (ICD-10) History of hip replacement ?Z96.649 - Presence of unspecified artificial hip joint (ICD-10) Hx of hernia repair ?Z98.890 - Other specified postprocedural states (ICD-10) ?Z87.19 - Personal history of other diseases of the digestive system (ICD-10) Family History Father Diabetes Coronary artery disease Sister Diabetes Social History Narrative: He lives in [place]. He lives by himself. He functions independently. He is retired. Remote history of smoking having quit about 20 years ago after a 10 pack year history. 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 Last drank in 2016 What is your current living situation?: I presently have a place to live Problems where you live: no known problems Problems where you live details: NA In the past 12 months, utilities in danger of being shut off: no In past 12 months, lack of transportation kept you from medical appts, meetings, work, or getting things needed for daily living: no In the past 12 mos, have been you worried that your food would run out before you had money to buy more?: never true In the past 12 mos, the food you bought just didn't last and you didn't have money to buy more?: never true Highest level of school completed/degree received: some college, no degree Smoking Status: Former smoker Do you use any of these nicotine containing products: None Second hand tobacco smoke exposure: No How often do you have a drink containing alcohol: never How often do you have six or more drinks on one occasion: Never AUDIT-C Alcohol total score: 0 Non-prescribed substance use: denies use Caffeine: No How often does anyone, including family, friends and others, physically hurt you: never How often does anyone, including family, friends and others, insult or talk down to you: never How often does anyone, including family, friends and others, threaten you with harm: never How often does anyone, including family, friends and others, scream or curse at you: never Little interest or pleasure in doing things: more than half the days Feeling down, depressed, or hopeless: nearly every day service: No Meds Home Medications and Allergies Home Medications ?Medication ?Instructions ?Recorded ?Confirmed ?Type aspirin 81 mg tablet,delayed 81 mg PO DAILY 10/22/21 06/28/23 History release (Adult Aspirin Regimen) tacrolimus 0.5 mg capsule, 2 mg PO BID 05/17/22 06/28/23 History immediate-release tamsulosin 0.4 mg capsule 0.4 mg PO DAILY 10/26/22 06/28/23 History clopidogrel 75 mg tablet 75 mg PO DAILY 11/01/22 06/28/23 History azathioprine 50 mg tablet 150 mg PO DAILY 03/01/23 06/28/23 History doxazosin 4 mg tablet 4 mg PO HS 03/01/23 06/28/23 History magnesium oxide 400 mg (241.3 mg 800 mg PO BID 04/06/23 06/28/23 History magnesium) tablet multivitamin (Daily Multi-Vitamin 1 tab PO QDAY 04/06/23 06/28/23 History tablet) sodium bicarbonate 650 mg tablet 650 mg PO BID 05/11/23 06/28/23 History furosemide 20 mg tablet 20 mg PO QDAY PRN 06/28/23 History Home Medication Comments: Patient unable to review meds with me at this time due to altered mental status. Patient's brother does not know either as patient manages his own meds. Allergies Allergy/AdvReac Type Severity Reaction Status Date / Time phytonadione (vitamin K1) Allergy Intermediate Unknown Verified 06/28/23 11:22 Exam Narrative: Exam Narrative: General: No acute distress. Awake alert, oriented to self, knows he is in a hospital, not oriented to day, month, year, or time. Very slow to respond to questions, moans. HEENT: Normocephalic atraumatic, pupils equally round and reactive to light and accommodation. Oropharynx clear, no rashes or thrush. Mucous membranes are slightly dry. No cervical lymphadenopathy, thyromegaly or carotid bruits. No JVD. Cardiovascular: Tachycardia, regular. No murmurs, gallops, or rubs. Chest: No increased work of breathing. Clear to auscultation bilaterally. No crackles or wheezes. Abdomen: Bowel sounds present. Soft, nondistended, mildly tender in the epigastrium. No hepatosplenomegaly or masses. Back: No bruising or tenderness. Extremities: No edema, no cyanosis or clubbing. Skin: No bruises. No jaundice, no pallor, no rashes. Neuro: He moves all extremities equally and is able to follow some commands, moans frequently even though he is awake and alert. Difficult to get a thorough neuro exam because he is not following all commands. Const: Vital Signs, click to edit/add: Vital Signs - 24 hr 09/11/23 16:17 09/11/23 16:17 09/11/23 16:18 Temperature 98.0 F Pulse Rate 130 H 128 H Pulse Rate [Left P ulse Oximeter] Pulse Rate [Right Pulse Oximeter] 124 H Respiratory Rate 28 H Blood Pressure 167/98 H Blood Pressure [Le ft Arm] Blood Pressure [Le ft Upper Arm] 167/98 H Pulse Oximetry 95 95 95 Oxygen Delivery Me thod Room Air 09/11/23 16:30 09/11/23 16:45 09/11/23 17:00 Temperature Pulse Rate 127 H 128 H 131 H Pulse Rate [Left P ulse Oximeter] Pulse Rate [Right Pulse Oximeter] Respiratory Rate 22 Blood Pressure Blood Pressure [Le ft Arm] Blood Pressure [Le ft Upper Arm] Pulse Oximetry 94 97 97 Oxygen Delivery Me thod 09/11/23 17:31 09/11/23 17:32 09/11/23 17:45 Temperature Pulse Rate 130 H 119 H Pulse Rate [Left P ulse Oximeter] Pulse Rate [Right Pulse Oximeter] Respiratory Rate Blood Pressure 176/109 H Blood Pressure [Le ft Arm] Blood Pressure [Le ft Upper Arm] Pulse Oximetry 96 96 Oxygen Delivery Me thod 09/11/23 18:00 09/11/23 18:15 09/11/23 18:30 Temperature Pulse Rate 118 H 117 H 116 H Pulse Rate [Left P ulse Oximeter] Pulse Rate [Right Pulse Oximeter] Respiratory Rate Blood Pressure Blood Pressure [Le ft Arm] Blood Pressure [Le ft Upper Arm] Pulse Oximetry 96 97 98 Oxygen Delivery Me thod 09/11/23 18:45 09/11/23 19:00 09/11/23 19:15 Temperature Pulse Rate 119 H 118 H 120 H Pulse Rate [Left P ulse Oximeter] Pulse Rate [Right Pulse Oximeter] Respiratory Rate Blood Pressure Blood Pressure [Le ft Arm] Blood Pressure [Le ft Upper Arm] Pulse Oximetry 96 96 99 Oxygen Delivery Me thod 09/11/23 19:30 09/11/23 19:45 09/11/23 20:00 Temperature Pulse Rate 113 H 114 H 110 H Pulse Rate [Left P ulse Oximeter] Pulse Rate [Right Pulse Oximeter] Respiratory Rate Blood Pressure Blood Pressure [Le ft Arm] Blood Pressure [Le ft Upper Arm] Pulse Oximetry 96 97 96 Oxygen Delivery Me thod 09/11/23 20:15 09/11/23 20:54 Temperature 98 F Pulse Rate 110 H Pulse Rate [Left P ulse Oximeter] 118 H Pulse Rate [Right Pulse Oximeter] Respiratory Rate 18 Blood Pressure Blood Pressure [Le ft Arm] 204/125 H Blood Pressure [Le ft Upper Arm] Pulse Oximetry 96 98 Oxygen Delivery Me thod Room Air Hospitalist - H&P: Result Labs Labs: Short CBC 09/11/23 Range/Units 17:00 WBC 11.08 H (4.50-11.00) K/uL Hgb 16.2 (13.5-17.5) gm/dL Hct 45.4 (37.0-53.0) % Plt Count 193 (140-440) K/uL BMP 09/11/23 17:00 Sodium 137 Potassium 5.1 Chloride 96 Carbon Dioxide 21 BUN 41 H Creatinine 2.2 H Glucose 444 H* Calcium 10.3 Cardiac Enzymes 09/11/23 09/11/23 Range/Units 17:00 19:16 Troponin I 0.15 H* 0.14 H* (0.01-0.04) ng/mL Liver Function 09/11/23 Range/Units 17:00 Total Bilirubin 3.1 H (0.1-1.5) mg/dL AST 26 (12-35) U/L ALT 15 (4-50) U/L Alkaline Phosphatase 94 (40-150) U/L Albumin 5.6 H (3.3-5.0) g/dL Urine 09/11/23 Range/Units 17:50 Urine Color Yellow (Yellow) Urine Appearance Clear (Clear) Urine pH 5.5 (5.0-8.5) Ur Specific [place] >= 1.030 (1.000-1.030) Urine Protein 2+ A (Negative) Urine Glucose (UA) 2+ A (Negative) 09/11/2023 EKG: Sinus tachycardia, 121 beats per minute. Possible left atrial enlargement. Borderline EKG. Procedure(s): CT head/brain wo [facility] Accession Number(s): [id number] cc: Rubén Boyle M.D.; Black Landis M.D.~ For Patients: As a result of the Century Cures Act, medical imaging exams and procedure reports are released immediately into your electronic medical record. You may view this report before your referring provider. If you have questions, please contact your health care provider. Indication: Altered mental status, confusion. Technique: Noncontrast CT of the head with multiplanar reconstruction utilizing bone and soft tissue algorithms. Comparison: None available. Findings: No acute intracranial hemorrhage. Scattered hypoattenuation within the supratentorial white matter, nonspecific, but typical of chronic small vessel ischemic changes. Mild diffuse parenchymal volume loss. No ventricular obstruction. No significant midline shift. Atherosclerotic calcification of the carotid siphons. No suspicious calvarial lesion. Bilateral pseudophakia. The imaged paranasal sinuses and mastoid air cells are predominantly clear. Impression: 1. No acute intracranial abnormality. 2. Mild diffuse parenchymal volume loss and scattered hypoattenuation within the supratentorial white matter typical of chronic small vessel ischemic changes. Please note that all CT scans at this facility use dose modulation, iterative reconstruction, and/or weight-based dosing when appropriate to reduce radiation dose to as low as reasonably achievable. Dictated by El Thayer MD @ 09/11/2023 5:47:33 PM (Electronically Signed) Procedure(s): CT chest abdomen pelv wo con Accession Number(s): [id number] cc: Rubén Boyle M.D.; Black Landis M.D.~ For Patients: As a result of the Cures Act, medical imaging exams and procedure reports are released immediately into your electronic medical record. You may view this report before your referring provider. If you have questions, please contact your health care provider. INDICATION: Altered mental status, confusion, abdominal pain, creatinine 2.7. History of kidney and liver transplant. TECHNIQUE: CT of the chest, abdomen, and pelvis without IV contrast. Coronal and sagittal reconstructions. COMPARISON: CT chest, abdomen, pelvis 03/18/2023. FINDINGS: Chest: Normal heart size. Normal caliber thoracic aorta and central pulmonary arteries. Status post aortic valve repair. Coronary artery calcifications and/or stents. Mitral annulus calcifications. No pericardial effusion. No thoracic lymphadenopathy. The thyroid gland is normal in appearance. No focal consolidation, pleural effusion, or pneumothorax. Tiny calcified granuloma posterior left upper lobe. No suspicious pulmonary nodules. No central endobronchial lesion or significant bronchial wall thickening. Since prior exam, there is new wall thickening of the mid to distal esophagus with surrounding edema. Findings are likely inflammatory such as esophagitis. Mild degenerative changes of the spine. Abdomen/pelvis: Postoperative changes of liver transplant and cholecystectomy with multiple surgical clips. The unenhanced liver, spleen, and adrenal glands are normal in appearance. Mild diffuse pancreatic parenchymal atrophy. No biliary dilation. The [place] kidneys are mildly atrophic. Stable left renal cyst. No hydronephrosis or ureteral dilation. No obstructing urinary calculi identified, however the distal ureters are obscured by streak artifact in the pelvis. The visualized bladder appears normal. The prostate gland is not well seen. There is a right lower quadrant transplant kidney in place with mild perinephric edema and no hydronephrosis. No small bowel dilation. Moderate amount of stool throughout the colon. Colonic diverticulosis without evidence of diverticulitis. Negative appendix. No intraperitoneal free air or fluid. No lymphadenopathy. Aortoiliac vascular calcifications. Small fat containing umbilical and right inguinal hernias. Moderate-sized fat containing left inguinal hernia. Stable rim calcified nodule in the left pelvis. Mild degenerative changes of the spine. Bilateral total hip arthroplasties which cause streak artifact in the pelvis. IMPRESSION: 1. New wall thickening of the mid to distal esophagus with surrounding edema. Findings suggest esophagitis. This could be further evaluated with endoscopy. 2. Mild perinephric edema about the right lower quadrant transplant kidney similar to prior exam. This could be further evaluated with ultrasound if clinically indicated. 3. No other acute findings in the chest, abdomen, or pelvis on this noncontrast exam. Please note that all CT scans at this facility use dose modulation, iterative reconstruction, and/or weight-based dosing when appropriate to reduce radiation dose to as low as reasonably achievable. Dictated by Nayla Batres MD @ 09/11/2023 6:26:36 PM (Electronically Signed) Assessment and Plan Assessment and plan (1) Altered mental status: Problem comment: - Cause is unclear. No focal findings to suggest stroke. CT head unremarkable. THC is positive, which may be contributing to this. Hyperglycemia is not associated with acidosis, so this is not likely the cause. Does not appear septic. Admit for observation. Status: Acute (2) Elevated troponin: Problem comment: - Not associated with EKG changes. Stable, asymptomatic, not increasing. Monitor on telemetry. Recheck troponin in am. Status: Acute (3) Acute hyperglycemia: Problem comment: - Was taken off insulin in March due to significant weight loss at that time. Now is hyperglycemic. Will order a HgbA1C (last one was 05/11/23, 5.8%). - Ketones in urine, but no acidosis. I think ketones in urine are likely secondary to dehydration. I do not think he has HHS or DKA. - Start diabetic diet and ISS. Status: Acute (4) Type 2 diabetes mellitus: Problem comment: - as above Status: Chronic (5) Kidney transplant recipient: Status: Chronic (6) Liver transplant recipient: Status: Chronic (7) CHF (congestive heart failure): Problem comment: Stable. Appeared hypovolemic upon admission, but will need to be careful with IVF. He's had 2L IVF total. Saline lock now and monitor. Status: Chronic (8) Chronic kidney disease (CKD): Problem comment: stage 3b - Looking back, I think his Cr today is not far off of baseline. Monitor. Status: Chronic (9) Noncompliance with medications: Problem comment: I suspect he has not taken his medications for at least a few days, possibly longer, as he reported to Dr. Boyle that he hadn't taken the vancomycin taper I ordered for recurrent Cdiff back in February. He is hyperglycemic and hypertensive, both of which he has medication for. Status: Suspected (10) HTN (hypertension): Problem comment: Elevated. Will have pharmacy help review meds to see what he's been filling recently. He does not appear to be on anything but prn furosemide; no other antihypertensive medications. Status: Chronic (11) Elevated lactic acid level: Problem comment: I think this was from dehydration. It resolved quickly with IVF, he's not febrile, no evidence of sepsis or infection. Status: Acute (12) Dehydration: Problem comment: elevated BUN, Cr, urine ketones, appears hypovolemic on exam Status: Acute (13) Recurrent Clostridioides difficile diarrhea: Problem comment: Was supposed to be on a long taper of po vanco Feb 2023, but he reported to Dr. Boyle in June 2023 that he never took in and was still having diarrhea. He was then given another long taper of vancomycin and referred to [facility]. His brother thinks Lito never followed through on these. Check Cdiff. Be judicious with antibiotics. Status: Suspected (14) Esophageal thickening: Problem comment: 09/11/23 CT: New wall thickening of the mid to distal esophagus with surrounding edema. Findings suggest esophagitis. This could be further evaluated with endoscopy. - Also has epigastric pain. Will start BID omeprazole. Status: Acute (15) Abnormal CT scan, kidney: Problem comment: 09/11/23 CT: Mild perinephric edema about the right lower quadrant transplant kidney similar to prior exam. This could be further evaluated with ultrasound if clinically indicated. Status: Acute Plan VTE prophylaxis: Low-dose nightly enoxaparin, TEDs, and SCDs.
[2023-09-11] MEDS: INSULIN ASPART 100 UNIT/ML SUBCUT (22:44)
[2023-09-11 23:00] LABS: Magnesium* 1.5 mg/dL (1.5-2.6)
[2023-09-12] VITALS (7 sets, daily range): BP systolic 138–179; BP diastolic 68–102; PULSE 104–118; RESP 18; TEMP 36.3–37.1; O2SAT 96–98
[2023-09-12 00:31] LABS: CDIFFEPI 027 PRESUMPTIVE NEGATIVE (Negative)
[2023-09-12 00:40] LABS: C.Difficile POSITIVE (Negative)
--- NOTE | 2023-09-12 02:06 | W.PM.TELEPRO ---
Telehealth Hospitalist-PN: Sub Subjective Interval History: I was called by nursing staff with a positive C. difficile screen. It appears that Mando was just admitted last evening for some altered mental status. I do see that he has previous diagnosis with recurrent C. difficile and apparently was asked to be on a longer taper of p.o. vancomycin back in February 2023. He had reported that he had not taken any of the prescribed medications and he continues to have diarrhea. It does appear that the laboratory screen did show positive for C. difficile and I will start him on oral vancomycin 125 mg p.o. 4 times daily. Exam Narrative Exam Narrative: Physical Exam GENERAL: ?vital signs reviewed, well developed and nourished, in no distress HEENT: pupils are equal round and reactive to light, extraocular movements are grossly within normal limits and oral mucosa is moist. NECK: Supple without lymphadenopathy or thyromegaly according to nursing staff examination observation HEART: Regular rate and rhythm without any rubs, murmurs, or gallops. LUNGS: Clear to auscultation bilaterally with good air movement throughout ABDOMEN: Observation from nurse assisted exam, abdomen appears soft, nontender, and nondistended with Positive bowel sounds noted. EXTREMITIES: Strength and sensation is observed to be grossly within normal limits in the upper and lower extremities.? No focal strength deficit is observed. SKIN:? Observed warm and dry with color normal Const Vital Signs, click to edit/add: Vital Signs - 24 hr 09/11/23 16:17 09/11/23 16:17 09/11/23 16:18 Temperature 98.0 F Pulse Rate 130 H 128 H Pulse Rate [Left Pulse Oximeter] Pulse Rate [Right Pulse Oximeter] 124 H Respiratory Rate 28 H Blood Pressure 167/98 H Blood Pressure [Left Arm] Blood Pressure [Left Upper Arm] 167/98 H Pulse Oximetry 95 95 95 Oxygen Delivery Method Room Air 09/11/23 16:30 09/11/23 16:45 09/11/23 17:00 Temperature Pulse Rate 127 H 128 H 131 H Pulse Rate [Left Pulse Oximeter] Pulse Rate [Right Pulse Oximeter] Respiratory Rate 22 Blood Pressure Blood Pressure [Left Arm] Blood Pressure [Left Upper Arm] Pulse Oximetry 94 97 97 Oxygen Delivery Method 09/11/23 17:31 09/11/23 17:32 09/11/23 17:45 Temperature Pulse Rate 130 H 119 H Pulse Rate [Left Pulse Oximeter] Pulse Rate [Right Pulse Oximeter] Respiratory Rate Blood Pressure 176/109 H Blood Pressure [Left Arm] Blood Pressure [Left Upper Arm] Pulse Oximetry 96 96 Oxygen Delivery Method 09/11/23 18:00 09/11/23 18:15 09/11/23 18:30 Temperature Pulse Rate 118 H 117 H 116 H Pulse Rate [Left Pulse Oximeter] Pulse Rate [Right Pulse Oximeter] Respiratory Rate Blood Pressure Blood Pressure [Left Arm] Blood Pressure [Left Upper Arm] Pulse Oximetry 96 97 98 Oxygen Delivery Method 09/11/23 18:45 09/11/23 19:00 09/11/23 19:15 Temperature Pulse Rate 119 H 118 H 120 H Pulse Rate [Left Pulse Oximeter] Pulse Rate [Right Pulse Oximeter] Respiratory Rate Blood Pressure Blood Pressure [Left Arm] Blood Pressure [Left Upper Arm] Pulse Oximetry 96 96 99 Oxygen Delivery Method 09/11/23 19:30 09/11/23 19:45 09/11/23 20:00 Temperature Pulse Rate 113 H 114 H 110 H Pulse Rate [Left Pulse Oximeter] Pulse Rate [Right Pulse Oximeter] Respiratory Rate Blood Pressure Blood Pressure [Left Arm] Blood Pressure [Left Upper Arm] Pulse Oximetry 96 97 96 Oxygen Delivery Method 09/11/23 20:15 09/11/23 20:54 09/11/23 22:00 Temperature 98 F Pulse Rate 110 H 116 H Pulse Rate [Left Pulse Oximeter] 118 H Pulse Rate [Right Pulse Oximeter] Respiratory Rate 18 Blood Pressure Blood Pressure [Left Arm] 204/125 H Blood Pressure [Left Upper Arm] Pulse Oximetry 96 98 Oxygen Delivery Method Room Air 09/11/23 22:49 09/11/23 22:49 09/11/23 22:49 Temperature 98.6 F Pulse Rate Pulse Rate [Left Pulse Oximeter] 112 H 112 H Pulse Rate [Right Pulse Oximeter] Respiratory Rate 18 18 18 Blood Pressure Blood Pressure [Left Arm] 196/112 H Blood Pressure [Left Upper Arm] Pulse Oximetry 96 96 Oxygen Delivery Method Room Air Room Air Labs Labs: Laboratory Results - last 24 hr 09/11/23 09/11/23 09/11/23 17:00 17:05 17:50 WBC 11.08 H RBC 5.02 Hgb 16.2 Hct 45.4 MCV 90 MCH 32 MCHC 36 RDW Coeff of [place] 13.4 Plt Count 193 Neut % (Auto) 84.7 H Lymph % (Auto) 5.6 L [place] % (Auto) 9.3 Eos % (Auto) 0.0 Baso % (Auto) 0.1 Neut # (Auto) 9.40 H Lymph # (Auto) 0.60 L [place] # (Auto) 1.00 H Eos # (Auto) 0.00 Baso # (Auto) 0.00 Abs Immat Gran (auto) 0.00 Imm/Tot Granulo (auto) 0.3 INR 1.02 VBG pH 7.407 VBG pCO2 35 L VBG pO2 31.6 VBG HCO3 22 Sodium 137 Potassium 5.1 Chloride 96 Carbon Dioxide 21 Anion Gap 20 H BUN 41 H Creatinine 2.2 H Estimated Creat Clear 33.80 Estimated GFR 31 Glucose 444 H* Lactate 3.4 H Calcium 10.3 Magnesium Total Bilirubin 3.1 H AST 26 ALT 15 Alkaline Phosphatase 94 Ammonia < 9.0 L Troponin I 0.15 H* C-Reactive Protein 1.1 H Total Protein 9.6 H Albumin 5.6 H Lipase 41 Urine Color Yellow Urine Appearance Clear Urine pH 5.5 Ur Specific [place] >= 1.030 Urine Protein 2+ A Urine Glucose (UA) 2+ A Urine Ketones 3+ A Urine Blood 1+ A Urine Nitrite Negative Urine Bilirubin 1+ A Urine Urobilinogen 0.2 Ur Leukocyte Esterase Negative Urine RBC 0-2 Urine WBC 0-2 Ur Squamous Epith Cells Few Urine Bacteria None Stl C. diff Tox B Gene Stl C. diff [id number]-[id number] Urine Opiates Screen Negative Ur Oxycodone Screen Negative Urine Methadone Screen Negative Ur Barbiturates Screen Negative U Tricyclic Antidepress Negative Ur Phencyclidine Scrn Negative Ur Amphetamines Screen Negative U Methamphetamines Scrn Negative U Benzodiazepines Scrn Negative Urine Cocaine Screen Negative U Marijuana (THC) Screen POSITIVE A Ur Drug Screen Comment See Note Ethyl Alcohol < 0.01 L SARS-CoV-2 (PCR) Negative SARS-CoV-2 Influenza Type A (PCR) Negative PCR FLU A Influenza Type B (PCR) Negative PCR FLU B RSV (PCR) Negative PCR RSV Lab Acknowledgement 09/11/23 09/11/23 09/11/23 18:42 19:16 21:50 WBC RBC Hgb Hct MCV MCH MCHC RDW Coeff of [place] Plt Count Neut % (Auto) Lymph % (Auto) [place] % (Auto) Eos % (Auto) Baso % (Auto) Neut # (Auto) Lymph # (Auto) [place] # (Auto) Eos # (Auto) Baso # (Auto) Abs Immat Gran (auto) Imm/Tot Granulo (auto) INR VBG pH VBG pCO2 VBG pO2 VBG HCO3 Sodium Potassium Chloride Carbon Dioxide Anion Gap BUN Creatinine Estimated Creat Clear Estimated GFR Glucose Lactate 1.3 1.8 Calcium Magnesium 1.5 Total Bilirubin AST ALT Alkaline Phosphatase Ammonia Troponin I 0.14 H* C-Reactive Protein Total Protein Albumin Lipase Urine Color Urine Appearance Urine pH Ur Specific [place] Urine Protein Urine Glucose (UA) Urine Ketones Urine Blood Urine Nitrite Urine Bilirubin Urine Urobilinogen Ur Leukocyte Esterase Urine RBC Urine WBC Ur Squamous Epith Cells Urine Bacteria Stl C. diff Tox B Gene Stl C. diff [id number] Urine Opiates Screen Ur Oxycodone Screen Urine Methadone Screen Ur Barbiturates Screen U Tricyclic Antidepress Ur Phencyclidine Scrn Ur Amphetamines Screen U Methamphetamines Scrn U Benzodiazepines Scrn Urine Cocaine Screen U Marijuana (THC) Screen Ur Drug Screen Comment Ethyl Alcohol SARS-CoV-2 (PCR) Influenza Type A (PCR) Influenza Type B (PCR) RSV (PCR) Lab Acknowledgement 09/11/23 09/11/23 22:15 23:30 WBC RBC Hgb Hct MCV MCH MCHC RDW Coeff of [place] Plt Count Neut % (Auto) Lymph % (Auto) [place] % (Auto) Eos % (Auto) Baso % (Auto) Neut # (Auto) Lymph # (Auto) [place] # (Auto) Eos # (Auto) Baso # (Auto) Abs Immat Gran (auto) Imm/Tot Granulo (auto) INR VBG pH VBG pCO2 VBG pO2 VBG HCO3 Sodium Potassium Chloride Carbon Dioxide Anion Gap BUN Creatinine Estimated Creat Clear Estimated GFR Glucose Lactate Calcium Magnesium Total Bilirubin AST ALT Alkaline Phosphatase Ammonia Troponin I C-Reactive Protein Total Protein Albumin Lipase Urine Color Urine Appearance Urine pH Ur Specific [place] Urine Protein Urine Glucose (UA) Urine Ketones Urine Blood Urine Nitrite Urine Bilirubin Urine Urobilinogen Ur Leukocyte Esterase Urine RBC Urine WBC Ur Squamous Epith Cells Urine Bacteria Stl C. diff Tox B Gene POSITIVE A* Stl C. diff [id number] PRESUMPTIVE NEGATIVE Urine Opiates Screen Ur Oxycodone Screen Urine Methadone Screen Ur Barbiturates Screen U Tricyclic Antidepress Ur Phencyclidine Scrn Ur Amphetamines Screen U Methamphetamines Scrn U Benzodiazepines Scrn Urine Cocaine Screen U Marijuana (THC) Screen Ur Drug Screen Comment Ethyl Alcohol SARS-CoV-2 (PCR) Influenza Type A (PCR) Influenza Type B (PCR) RSV (PCR) Lab Acknowledgement Test Added Telehealth: Statement Statement Telehealth Visit: Today's History and Physical is provided via interactive telehealth by Evaristo York MD.? Patient is located at [facility].? Provider is located at [facility].? Nursing staff assisted with the patient's exam. The visit being done today meets criteria for a telehealth visit and the patient or patient?s parent/guardian is aware the visit is a telehealth visit.
[2023-09-12] MEDS: VANCOMYCIN 125 MG CAPSULE PO ×5 (04:13→20:39)
--- NOTE | 2023-09-12 04:58 | PC.NURSE ---
Shift note: Pt was brought to the unit on account of altered mental status by bed. Pt appeared unclean and diaper soiled. Pt was cleaned up before admission assessment was done. Appeared confused and disoriented. Weakness with unsteady gait. Groin appeared reddened. Bp was high on admission and throughout the night with tachycardia. Telemetry and SCD applied. Pt remained NSR throughout the shift. Pelvic transfer with A2, walker and GB. Stool sample taken for C.diff investigation at 0045.
[2023-09-12 07:17] LABS: Basophils Absolute Auto 0.01 K/uL (0.00-0.30); Basophils Percent Auto 0.1 % (0.0-3.0); Hematocrit 40.4 % (37.0-53.0); Hemoglobin* 14.4 gm/dL (13.5-17.5); Immature Granulocytes Abs Auto 0.02 K/uL (0.00-0.30); Immature Granulocytes Pct Auto 0.2 %; Lymphocytes Percent Auto 10.4 % (20-44); Mean Corpuscular HGB Conc 36 gm/dL (32-36); Mean Corpuscular Hemoglobin 33 pg (26-34); Mean Corpuscular Volume 91 fL (80-100); Monocytes Percent Auto 10.6 % (0.0-11.0); Neutrophils Percent Auto 78.7 % (42.0-72.0); Platelet Count* 163 K/uL (140-440); RDW Coefficient of Variation % 13.5 % (11.5-15.5); Red Blood Count 4.43 m/uL (4.30-5.90); White Blood Count* 10.71 K/uL (4.50-11.00)
[2023-09-12 07:22] LABS: Slide Review Reflex No
[2023-09-12 07:52] LABS: Hemoglobin A1C* 5.9 % (0-5.6)
[2023-09-12 07:56] LABS: Albumin* 4.7 g/dL (3.3-5.0); Anion Gap 11 mEq/L (7-15); Aspartate Amino Transferase* 26 U/L (12-35); Blood Urea Nitrogen* 38 mg/dL (7-30); Calcium* 9.6 mg/dL (8.4-10.6); Carbon Dioxide* 20 mmol/L (20-32); Chloride* 105 mmol/L (96-114); Creatinine* 1.6 mg/dL (0.5-1.5); Est. Creatinine Clearance* 46.48; Estimated Glomerular Filt Rate 46 ml/min; Glucose* 231 mg/dL (60-115); Potassium* 4.6 mmol/L (3.6-5.1); Sodium* 136 mmol/L (135-149); Total Protein* 8.1 g/dL (6.0-8.3)
[2023-09-12 07:57] LABS: Alanine Aminotransferase* 9 U/L (4-50); Alkaline Phosphatase* 75 U/L (40-150)
[2023-09-12] MEDS: ASPIRIN 81 MG TAB.CHEW PO (08:31)
[2023-09-12] MEDS: CLOPIDOGREL 75 MG TABLET PO (08:31)
[2023-09-12] MEDS: OMEPRAZOLE 20 MG CAPSULE DR PO ×2 (08:31→20:38)
[2023-09-12] MEDS: fentaNYL 12 mcg/hr PATCH 1 PATCH TRANSDERMA (09:08)
[2023-09-12] MEDS: CITALOPRAM HYDROBROMIDE 20 MG TABLET 40 MG PO (09:09)
[2023-09-12] MEDS: TAMSULOSIN HCL 0.4 MG CAPSULE PO (09:09)
[2023-09-12] MEDS: MAGNESIUM OXIDE 400 MG TABLET 800 MG PO ×2 (09:09→20:39)
[2023-09-12] MEDS: MULTIVITAMIN/MINERALS 1 TABLET 1 TAB PO (09:09)
[2023-09-12] MEDS: SODIUM BICARBONATE 650 MG TABLET PO ×2 (09:09→20:39)
[2023-09-12] MEDS: SODIUM CHLORIDE 0.9 % (FLUSH) 10 ML SYRINGE 5 ML IVF ×2 (09:10→10:30)
[2023-09-12] MEDS: TACROLIMUS 0.5 MG CAPSULE 2 MG PO ×2 (09:13→20:38)
[2023-09-12] MEDS: azaTHIOprine 50 MG TABLET 150 MG PO (09:14)
[2023-09-12] MEDS: LACTATED RINGERS 1000 ML 1,000 ML 125 ML IV ×2 (09:16→16:06)
[2023-09-12] MEDS: MORPHINE 2 MG/ML inj IVP ×2 (10:30→17:45)
--- NOTE | 2023-09-12 12:02 | P.IMPN_ITS ---
Progress Note: A&P Assessment and plan (1) Recurrent colitis due to Clostridioides difficile: Problem details: Acute on chronic problem. Probably has not been treated for months. Probably has never cleared his C diff infection. Unclear if this is the only acute problem causing his dehydration, acute kidney injury, altered mental status. Resume oral vancomycin. Repeat referral to GI. Status: Acute (2) Dehydration: Problem details: Patient has clinical and laboratory evidence of dehydration. Unclear if this is a result of his C diff diarrhea or altered mental status or partly the cause of his altered mental status. Continue fluid hydration. Continue to encourage oral intake. Status: Acute (3) Metabolic encephalopathy: Problem details: Multiple possible contributors. Has had this same problem on previous admissions and has typically cleared his sensorium over a few days. Continue to monitor and manage with supportive cares. Status: Acute (4) Elevated lactic acid level: Problem details: Likely due to acute illness with dehydration and poor oral intake. Look for signs and symptoms of sepsis. Transplanted liver disease is a concern. Continue to monitor. Status: Acute (5) Esophageal thickening: Problem details: 09/11/23 CT: New wall thickening of the mid to distal esophagus with surrounding edema. Findings suggest esophagitis. This could be further evaluated with endoscopy. - Also has epigastric pain. Will start BID omeprazole. Status: Acute (6) Abnormal CT scan, kidney: Problem details: 09/11/23 CT: Mild perinephric edema about the right lower quadrant transplant kidney similar to prior exam. This could be further evaluated with ultrasound if clinically indicated. Status: Acute (7) Acute kidney injury: Problem details: Likely primarily due to dehydration. Continue to monitor and manage. Status: Acute (8) Noncompliance with medications: Problem details: I suspect he has not taken his medications for at least a few days, possibly longer, as he reported to Dr. Boyle that he hadn't taken the vancomycin taper I ordered for recurrent Cdiff back in February. He is hyperglycemic and hypertensive, both of which he has medication for. Status: Suspected (9) Elevated troponin: Problem details: - Not associated with EKG changes or chest pain. Stable, asymptomatic, not increasing. Monitor on telemetry. Recheck troponin in am. Type 2 MS or myocardial stress injury most likely explanation Status: Acute (10) Type 2 diabetes mellitus: Problem details: Poorly controlled blood sugars. Combination of acute illness and probably not taking his medications. Probably contributing to altered mental status and dehydration. Status: Chronic (11) Kidney transplant recipient: Problem details: Resume transplant medications Status: Chronic (12) Liver transplant recipient: Problem details: Resume tense pt medications Status: Chronic (13) Adult failure to thrive: Problem details: Has had recurrent hospitalizations with altered mental status, profound weakness and concern about ability to care for himself independently. - Physical therapy, occupational therapy, criminal justice social worker to consult and as sist with evaluation and recommendations. Status: Acute (14) Discharge planning issues: Problem details: Concern about patient's ability live safely independently, manage serious medical problems with high risk medications including transplant medications. Uncertain if he can be safely living independently Status: Acute Plan Patient admitted to the hospital for management of metabolic encephalopathy, acute kidney injury, dehydration, inability to care for himself. Time Spent With Patient Total time spent: Total time spent today is 60 minutes, 45 minutes in coordination of care and discussing with patient and other providers ongoing evaluation management of multiple problems noted above. Subjective Date Seen: 09/12/23 Interval history: Bari Mora is a 73 year old male chronically immunocompromised with a history of liver and kidney transplant, history of alcohol use, recurrent C diff colitis and diarrhea, type 2 diabetes, coronary artery disease, and hypertension whose brother found him sleeping in bed today, difficult to arouse. I spoke with his brother, Michael, over the phone this evening. Lito has had episodes like this before and was here last March for something similar. When discharged from the hospital in March, he was set up with a county nurse to come in set up medications for him, but somehow this fell through and Michael thinks that this never actually happened. Lito has been managing his own meds. According to Dr. Astorga's clinic notes, Lito has continued to have diarrhea from a C diff episode in February and apparently never took the long course of vancomycin that was prescribed for him when Dr. Boyle saw Lito in June, he referred him to [facility] and gave him the long course of vancomycin for presumed C diff, although a C diff sample was not obtained at that time. It appears that the referral was put in, but Michael thinks that Lito never followed through with this. Michael [place] spoke with Lito last Tuesday or and Lito was supposed to come over to Michael's house later that day, but never did. Michael notes that this is not unusual and so he did not think much of it. Today he went to check on Lito and found him in his bed sleeping. The lawn had not been cared for for weeks although the house appeared clean. Lito was asleep in the bed even though kitchen faucet was running full stream. Lito would not get up out of bed, so Michael called 911. Lito told Michael that he had not taken any pills yet today. Michael found the pillbox and noticed it was empty. Lito is unable to give much history, but does say that he normally wears a fentanyl patch but does not have 1 on today. He has no idea why. Evaluation in the emergency room and on admission showed an elevated lactate which improved with fluid resuscitation. He had an elevated creatinine at 2.2 which also improved. His glucose was 444 and improved to 231. He had an elevated troponin at 0.15 which is also improved to 0.1. He has had no chest pain. Electrocardiogram shows no ischemic changes. Venous blood gas was normal. CBC was relatively normal with a white count of 11 but no other marked abnormalities. Bilirubin elevated at 3.1 with normal transaminases. Urine toxicology shows THC. No alcohol in his blood. CT chest abdomen pelvis showed thickening of the mid to distal esophagus with surrounding edema suggestive of esophagitis. Perinephric stranding around transplanted kidney in the right lower quadrant. Otherwise unremarkable. I see the patient this morning he is oriented to being in the hospital but does not know the day or date. He does recall that his brother called the ambulance but does not remember the details or circumstances around that. He thinks he took his medications yesterday morning but does not recall much other detail from yesterday. He can at answer other simple questions about past medical history including details about his diarrhea, C diff treatment, use a fentanyl patch. He normally puts a fentanyl patch on his left shoulder but it was not noted to be present in the emergency department and I cannot find today. He does not know what has happened with it or when was last applied or fallen off. He does report that he is having some abdominal pain today. He also has nausea. Exam Narrative: Exam Narrative: He is alert and appears in no distress. He has mental slowing and is slow to answer questions. Unable to answer a number of relatively simple questions about recent history. Head is without obvious trauma. Eyes are normal. Oropharynx is normal. Dry mucous membranes. Neck is supple without mass or adenopathy. Respirations are clear to auscultation without wheezing rales or rhonchi. Breathing is unlabored. Cardiovascular: S1, S2, regular tachycardia. Abdomen: Bowel sounds are active. Abdomen is soft. He reports some low abdominal pain but palpation there is not particularly tender. I do not palpate a new mass. External genitalia normal. Extremities with no edema. He moves all 4 extremities well. Const: Vital Signs, click to edit/add: Vital Signs - 24 hr 09/11/23 16:17 09/11/23 16:17 09/11/23 16:18 Temperature 98.0 F Pulse Rate 130 H 128 H Pulse Rate [Left P ulse Oximeter] Pulse Rate [Right Pulse Oximeter] 124 H Respiratory Rate 28 H Blood Pressure 167/98 H Blood Pressure [Le ft Arm] Blood Pressure [Le ft Upper Arm] 167/98 H Pulse Oximetry 95 95 95 Oxygen Delivery Me od Room Air 09/11/23 16:30 09/11/23 16:45 09/11/23 17:00 Temperature Pulse Rate 127 H 128 H 131 H Pulse Rate [Left P ulse Oximeter] Pulse Rate [Right Pulse Oximeter] Respiratory Rate 22 Blood Pressure Blood Pressure [Le ft Arm] Blood Pressure [Le ft Upper Arm] Pulse Oximetry 94 97 97 Oxygen Delivery Me thod 09/11/23 17:31 09/11/23 17:32 09/11/23 17:45 Temperature Pulse Rate 130 H 119 H Pulse Rate [Left P ulse Oximeter] Pulse Rate [Right Pulse Oximeter] Respiratory Rate Blood Pressure 176/109 H Blood Pressure [Le ft Arm] Blood Pressure [Le ft Upper Arm] Pulse Oximetry 96 96 Oxygen Delivery Me thod 09/11/23 18:00 09/11/23 18:15 09/11/23 18:30 Temperature Pulse Rate 118 H 117 H 116 H Pulse Rate [Left P ulse Oximeter] Pulse Rate [Right Pulse Oximeter] Respiratory Rate Blood Pressure Blood Pressure [Le ft Arm] Blood Pressure [Le ft Upper Arm] Pulse Oximetry 96 97 98 Oxygen Delivery Me thod 09/11/23 18:45 09/11/23 19:00 09/11/23 19:15 Temperature Pulse Rate 119 H 118 H 120 H Pulse Rate [Left P ulse Oximeter] Pulse Rate [Right Pulse Oximeter] Respiratory Rate Blood Pressure Blood Pressure [Le ft Arm] Blood Pressure [Le ft Upper Arm] Pulse Oximetry 96 96 99 Oxygen Delivery Me thod 09/11/23 19:30 09/11/23 19:45 09/11/23 20:00 Temperature Pulse Rate 113 H 114 H 110 H Pulse Rate [Left P ulse Oximeter] Pulse Rate [Right Pulse Oximeter] Respiratory Rate Blood Pressure Blood Pressure [Le ft Arm] Blood Pressure [Le ft Upper Arm] Pulse Oximetry 96 97 96 Oxygen Delivery Me thod 09/11/23 20:15 09/11/23 20:54 09/11/23 22:00 Temperature 98 F Pulse Rate 110 H 116 H Pulse Rate [Left P ulse Oximeter] 118 H Pulse Rate [Right Pulse Oximeter] Respiratory Rate 18 Blood Pressure Blood Pressure [Le ft Arm] 204/125 H Blood Pressure [Le ft Upper Arm] Pulse Oximetry 96 98 Oxygen Delivery Me od Room Air 09/11/23 22:49 09/11/23 22:49 09/11/23 22:49 Temperature 98.6 F Pulse Rate Pulse Rate [Left P ulse Oximeter] 112 H 112 H Pulse Rate [Right Pulse Oximeter] Respiratory Rate 18 18 18 Blood Pressure Blood Pressure [Le ft Arm] 196/112 H Blood Pressure [Le ft Upper Arm] Pulse Oximetry 96 96 Oxygen Delivery Me od Room Air Room Air 09/12/23 03:00 09/12/23 07:00 09/12/23 07:00 Temperature 98.8 F Pulse Rate Pulse Rate [Left P ulse Oximeter] 112 H 116 H Pulse Rate [Right Pulse Oximeter] Respiratory Rate 18 18 18 Blood Pressure Blood Pressure [Le ft Arm] 165/97 H Blood Pressure [Le ft Upper Arm] Pulse Oximetry 97 98 Oxygen Delivery Me od Room Air Room Air 09/12/23 07:00 09/12/23 07:21 Temperature 98.4 F Pulse Rate 118 H Pulse Rate [Left P ulse Oximeter] 116 H Pulse Rate [Right Pulse Oximeter] Respiratory Rate 18 Blood Pressure Blood Pressure [Le ft Arm] 149/102 H Blood Pressure [Le ft Upper Arm] Pulse Oximetry 98 Oxygen Delivery Me thod Room Air Documenting provider has reviewed patient's vital signs: yes Labs Labs: Laboratory Results - last 24 hr 09/11/23 09/11/23 09/11/23 17:00 17:05 17:50 WBC 11.08 H RBC 5.02 Hgb 16.2 Hct 45.4 MCV 90 MCH 32 MCHC 36 RDW Coeff of [place] 13.4 Plt Count 193 Neut % (Auto) 84.7 H Lymph % (Auto) 5.6 L [place] % (Auto) 9.3 Eos % (Auto) 0.0 Baso % (Auto) 0.1 Neut # (Auto) 9.40 H Lymph # (Auto) 0.60 L [place] # (Auto) 1.00 H Eos # (Auto) 0.00 Baso # (Auto) 0.00 Abs Immat Gran (auto) 0.00 Imm/Tot Granulo (auto) 0.3 INR 1.02 VBG pH 7.407 VBG pCO2 35 L VBG pO2 31.6 VBG HCO3 22 Sodium 137 Potassium 5.1 Chloride 96 Carbon Dioxide 21 Anion Gap 20 H BUN 41 H Creatinine 2.2 H Estimated Creat Clear 33.80 Estimated GFR 31 Glucose 444 H* Hemoglobin A1c Lactate 3.4 H Calcium 10.3 Phosphorus Magnesium Total Bilirubin 3.1 H AST 26 ALT 15 Alkaline Phosphatase 94 Ammonia < 9.0 L Troponin I 0.15 H* C-Reactive Protein 1.1 H Total Protein 9.6 H Albumin 5.6 H Lipase 41 Urine Color Yellow Urine Appearance Clear Urine pH 5.5 Ur Specific [place] >= 1.030 Urine Protein 2+ A Urine Glucose (UA) 2+ A Urine Ketones 3+ A Urine Blood 1+ A Urine Nitrite Negative Urine Bilirubin 1+ A Urine Urobilinogen 0.2 Ur Leukocyte Esterase Negative Urine RBC 0-2 Urine WBC 0-2 Ur Squamous Epith Cells Few Urine Bacteria None Stl C. diff Tox B Gene Stl C. diff [id number]-NAP1-[id number] Urine Opiates Screen Negative Ur Oxycodone Screen Negative Urine Methadone Screen Negative Ur Barbiturates Screen Negative U Tricyclic Antidepress Negative Ur Phencyclidine Scrn Negative Ur Amphetamines Screen Negative U Methamphetamines Scrn Negative U Benzodiazepines Scrn Negative Urine Cocaine Screen Negative U Marijuana (THC) Screen POSITIVE A Ur Drug Screen Comment See Note Ethyl Alcohol < 0.01 L SARS-CoV-2 (PCR) Negative SARS-CoV-2 Influenza Type A (PCR) Negative PCR FLU A Influenza Type B (PCR) Negative PCR FLU B RSV (PCR) Negative PCR RSV Lab Acknowledgement 09/11/23 09/11/23 09/11/23 18:42 19:16 21:50 WBC RBC Hgb Hct MCV MCH MCHC RDW Coeff of [place] Plt Count Neut % (Auto) Lymph % (Auto) [place] % (Auto) Eos % (Auto) Baso % (Auto) Neut # (Auto) Lymph # (Auto) [place] # (Auto) Eos # (Auto) Baso # (Auto) Abs Immat Gran (auto) Imm/Tot Granulo (auto) INR VBG pH VBG pCO2 VBG pO2 VBG HCO3 Sodium Potassium Chloride Carbon Dioxide Anion Gap BUN Creatinine Estimated Creat Clear Estimated GFR Glucose Hemoglobin A1c Lactate 1.3 1.8 Calcium Phosphorus Magnesium 1.5 Total Bilirubin AST ALT Alkaline Phosphatase Ammonia Troponin I 0.14 H* C-Reactive Protein Total Protein Albumin Lipase Urine Color Urine Appearance Urine pH Ur Specific [place] Urine Protein Urine Glucose (UA) Urine Ketones Urine Blood Urine Nitrite Urine Bilirubin Urine Urobilinogen Ur Leukocyte Esterase Urine RBC Urine WBC Ur Squamous Epith Cells Urine Bacteria Stl C. diff Tox B Gene Stl C. diff [id number] Urine Opiates Screen Ur Oxycodone Screen Urine Methadone Screen Ur Barbiturates Screen U Tricyclic Antidepress Ur Phencyclidine Scrn Ur Amphetamines Screen U Methamphetamines Scrn U Benzodiazepines Scrn Urine Cocaine Screen U Marijuana (THC) Screen Ur Drug Screen Comment Ethyl Alcohol SARS-CoV-2 (PCR) Influenza Type A (PCR) Influenza Type B (PCR) RSV (PCR) Lab Acknowledgement 09/11/23 09/11/23 09/12/23 22:15 23:30 06:47 WBC 10.71 RBC 4.43 Hgb 14.4 Hct 40.4 MCV 91 MCH 33 MCHC 36 RDW Coeff of [place] 13.5 Plt Count 163 Neut % (Auto) 78.7 H Lymph % (Auto) 10.4 L [place] % (Auto) 10.6 Eos % (Auto) 0.0 Baso % (Auto) 0.1 Neut # (Auto) 8.40 H Lymph # (Auto) 1.10 [place] # (Auto) 1.10 H Eos # (Auto) 0.00 Baso # (Auto) 0.01 Abs Immat Gran (auto) 0.02 Imm/Tot Granulo (auto) 0.2 INR VBG pH VBG pCO2 VBG pO2 VBG HCO3 Sodium 136 Potassium 4.6 Chloride 105 Carbon Dioxide 20 Anion Gap 11 BUN 38 H Creatinine 1.6 H Estimated Creat Clear 46.48 Estimated GFR 46 Glucose 231 H Hemoglobin A1c 5.9 H Lactate Calcium 9.6 Phosphorus 3.0 Magnesium Total Bilirubin 3.0 H AST 26 ALT 9 Alkaline Phosphatase 75 Ammonia Troponin I 0.10 H* C-Reactive Protein Total Protein 8.1 Albumin 4.7 Lipase Urine Color Urine Appearance Urine pH Ur Specific [place] Urine Protein Urine Glucose (UA) Urine Ketones Urine Blood Urine Nitrite Urine Bilirubin Urine Urobilinogen Ur Leukocyte Esterase Urine RBC Urine WBC Ur Squamous Epith Cells Urine Bacteria Stl C. diff Tox B Gene POSITIVE A* Stl C. diff [id number] PRESUMPTIVE NEGATIVE Urine Opiates Screen Ur Oxycodone Screen Urine Methadone Screen Ur Barbiturates Screen U Tricyclic Antidepress Ur Phencyclidine Scrn Ur Amphetamines Screen U Methamphetamines Scrn U Benzodiazepines Scrn Urine Cocaine Screen U Marijuana (THC) Screen Ur Drug Screen Comment Ethyl Alcohol SARS-CoV-2 (PCR) Influenza Type A (PCR) Influenza Type B (PCR) RSV (PCR) Lab Acknowledgement Test Added 09/12/23 07:24 WBC RBC Hgb Hct MCV MCH MCHC RDW Coeff of [place] Plt Count Neut % (Auto) Lymph % (Auto) [place] % (Auto) Eos % (Auto) Baso % (Auto) Neut # (Auto) Lymph # (Auto) [place] # (Auto) Eos # (Auto) Baso # (Auto) Abs Immat Gran (auto) Imm/Tot Granulo (auto) INR VBG pH VBG pCO2 VBG pO2 VBG HCO3 Sodium Potassium Chloride Carbon Dioxide Anion Gap BUN Creatinine Estimated Creat Clear Estimated GFR Glucose Hemoglobin A1c Lactate Calcium Phosphorus Magnesium Total Bilirubin AST ALT Alkaline Phosphatase Ammonia Troponin I C-Reactive Protein Total Protein Albumin Lipase Urine Color Urine Appearance Urine pH Ur Specific [place] Urine Protein Urine Glucose (UA) Urine Ketones Urine Blood Urine Nitrite Urine Bilirubin Urine Urobilinogen Ur Leukocyte Esterase Urine RBC Urine WBC Ur Squamous Epith Cells Urine Bacteria Stl C. diff Tox B Gene Stl C. diff [id number] Urine Opiates Screen Ur Oxycodone Screen Urine Methadone Screen Ur Barbiturates Screen U Tricyclic Antidepress Ur Phencyclidine Scrn Ur Amphetamines Screen U Methamphetamines Scrn U Benzodiazepines Scrn Urine Cocaine Screen U Marijuana (THC) Screen Ur Drug Screen Comment Ethyl Alcohol SARS-CoV-2 (PCR) Influenza Type A (PCR) Influenza Type B (PCR) RSV (PCR) Lab Acknowledgement Test Added
[2023-09-12] MEDS: INSULIN ASPART 100 UNIT/ML SUBCUT ×3 (12:32→20:37)
[2023-09-12] MEDS: FLUCONAZOLE 100 MG TABLET PO (18:07)
--- NOTE | 2023-09-12 18:41 | PC.NURSE ---
Shift Note : Pt exhibits flat affect. Initially giving delayed one word answers to questions, but has become increasingly verbal throughout the day. He was observed dialing his cell phone to call and update a friend. He struggled to verbalize what brought him to the hospital and has clear deficits with short term memory. C/o abdominal discomfort this morning, Morphine given IVP and pt stated this gave him relief for most of the day. At 1800 pt c/o increased epigastric discomfort, especially when swallowing. updated and ordered Diflucan PO. Pt offered mashed potatoes and chicken broth for supper and has taken minimal bites. He is sipping water. One moderate/large void this am and no void since. Bladder scanned at 1745 and 381cc scanned. updated. BG 230's-250's despite poor PO intake and sliding scale Novolog.
[2023-09-12] MEDS: DOXAZOSIN 4 MG TABLET PO (20:38)
[2023-09-12] MEDS: ATORVASTATIN 10 MG TABLET 20 MG PO (20:39)
[2023-09-12] MEDS: ENOXAPARIN 40 MG/0.4 ML INJ SUBCUT (20:40)
[2023-09-13] VITALS (14 sets, daily range): BP systolic 147–162; BP diastolic 77–99; PULSE 99–115; RESP 18–20; TEMP 36.1–37.1; O2SAT 95–99
[2023-09-13] MEDS: LACTATED RINGERS 1000 ML 1,000 ML 125 ML IV ×2 (00:05→09:10)
[2023-09-13] MEDS: MORPHINE 2 MG/ML inj IVP (03:13)
--- NOTE | 2023-09-13 05:45 | PC.NURSE ---
Shift note: Pt's condition is improving as pt appeared to gain strength. More alert and oriented than yesterday. Pt was able to communicate with nurses and answered questions appropriately. Pt had no BM, fever and abdoninal pain but does complaine =
--- NOTE | 2023-09-13 05:55 | PC.NURSE ---
Shift note: Patient's condition appeared to be improving as pt is gaining strength. Doing well with A1 or 2 to bedside commode. Pt is more alert and oriented than yesterday. Pt was able communicate with nurses and answered questions more appropriately. No BM, fever, abdominal pain or N/V tonight but does complained of throat on swallowing. Contact precaution followed. Pt had adequate sleep. Vitally stable.
[2023-09-13 07:52] LABS: Eosinophils Absolute Auto 0.01 K/uL (0.00-0.50); Eosinophils Percent Auto 0.2 % (0.0-7.0); Hematocrit 35.5 % (37.0-53.0); Hemoglobin* 12.3 gm/dL (13.5-17.5); Immature Granulocytes Abs Auto 0.02 K/uL (0.00-0.30); Immature Granulocytes Pct Auto 0.4 %; Lymphocytes Percent Auto 13.2 % (20-44); Mean Corpuscular HGB Conc 35 gm/dL (32-36); Mean Corpuscular Hemoglobin 33 pg (26-34); Mean Corpuscular Volume 94 fL (80-100); Monocytes Percent Auto 6.7 % (0.0-11.0); Neutrophils Percent Auto 79.5 % (42.0-72.0); Platelet Count* 90 K/uL (140-440); RDW Coefficient of Variation % 13.4 % (11.5-15.5); Red Blood Count 3.79 m/uL (4.30-5.90); White Blood Count* 4.63 K/uL (4.50-11.00)
[2023-09-13 07:53] LABS: Slide Review Reflex No
[2023-09-13 08:07] LABS: Aspartate Amino Transferase* 18 U/L (12-35); Bilirubin Total* 1.9 mg/dL (0.1-1.5); Carbon Dioxide* 24 mmol/L (20-32); Creatinine* 1.2 mg/dL (0.5-1.5); Est. Creatinine Clearance* 61.97; Estimated Glomerular Filt Rate 65 ml/min; Total Protein* 7.1 g/dL (6.0-8.3)
[2023-09-13 08:08] LABS: Alanine Aminotransferase* 9 U/L (4-50); Alkaline Phosphatase* 67 U/L (40-150); Blood Urea Nitrogen* 30 mg/dL (7-30); Calcium* 9.1 mg/dL (8.4-10.6); Glucose* 215 mg/dL (60-115)
[2023-09-13 08:17] LABS: Anion Gap 6 mEq/L (7-15); Chloride* 105 mmol/L (96-114); Potassium* 4.5 mmol/L (3.6-5.1); Sodium* 135 mmol/L (135-149)
--- NOTE | 2023-09-13 08:35 | W.ANESCHARGE ---
Anesthesia Charges Start Date/Time Anesthesia Start Date: 09/13/23 Anesthesia Start Time: 10:24 Stop Date/Time Anesthesia Stop Date: 09/13/23 Anesthesia Stop Time: 10:43 Summary Emergency: MDA Extremes of Age - Over 70 or under 1: MDA
--- NOTE | 2023-09-13 10:46 | P.ANES_ITS ---
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
--- NOTE | 2023-09-13 10:46 | W.ANESCHARGE ---
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
[2023-09-13] MEDS: MAGNESIUM OXIDE 400 MG TABLET 800 MG PO ×2 (12:08→20:26)
[2023-09-13] MEDS: CITALOPRAM HYDROBROMIDE 20 MG TABLET 40 MG PO (12:09)
[2023-09-13] MEDS: TAMSULOSIN HCL 0.4 MG CAPSULE PO (12:09)
[2023-09-13] MEDS: MULTIVITAMIN/MINERALS 1 TABLET 1 TAB PO (12:09)
[2023-09-13] MEDS: CLOPIDOGREL 75 MG TABLET PO (12:09)
[2023-09-13] MEDS: VANCOMYCIN 125 MG CAPSULE PO ×3 (12:10→20:26)
[2023-09-13] MEDS: ASPIRIN 81 MG TAB.CHEW PO (12:10)
[2023-09-13] MEDS: SODIUM BICARBONATE 650 MG TABLET PO ×2 (12:10→20:25)
[2023-09-13] MEDS: OMEPRAZOLE 20 MG CAPSULE DR PO ×2 (12:10→20:25)
[2023-09-13] MEDS: azaTHIOprine 50 MG TABLET 150 MG PO (12:10)
[2023-09-13] MEDS: INSULIN ASPART 100 UNIT/ML SUBCUT ×3 (12:11→20:30)
[2023-09-13] MEDS: TACROLIMUS 0.5 MG CAPSULE 2 MG PO ×2 (12:11→20:24)
--- NOTE | 2023-09-13 13:31 | PM.IMPN1 ---
Progress Note: A&P Assessment and plan (1) Recurrent colitis due to Clostridioides difficile: Problem details: Acute on chronic problem. Probably has not been treated for months. Probably has never cleared his C diff infection. Unclear if this is the only acute problem causing his dehydration, acute kidney injury, altered mental status. Resume oral vancomycin. Repeat referral to GI. Status: Acute (2) Esophagitis: Problem details: Thickened esophagus on CT, pain and difficulty with swallowing, EGD showing severe esophagitis. Treat empirically with acid suppression and anti fungal treatment. Consider treatment for CMV if not improving with acid acid suppression and anti fungal. Status: Acute (3) Drug interaction: Problem details: Fluconazole and tacrolimus have a serious drug interaction. Will check tacrolimus serum level, treat with Diflucan at 100 mg daily, reduce tacrolimus to 1 mg b.i.d. pending serum level. Status: Acute (4) Malnutrition: Problem details: Patient has been unable to eat or drink substantial calories since hospitalization and probably for a few days before that. Difficult to quantify his oral intake. This is a combination of dysphagia due to esophagitis and poor appetite. Continue to monitor and manage. For now full liquid diet due to esophagitis. Status: Acute (5) Dehydration: Problem details: Patient has clinical and laboratory evidence of dehydration. Unclear if this is a result of his C diff diarrhea, esophagitis and/or altered mental status or partly the cause of his altered mental status. Continue fluid hydration with IV fluids today and then transition to oral food and fluids. Continue to encourage oral intake. Status: Acute (6) Metabolic encephalopathy: Problem details: Slowly improving. Multiple possible contributors. Has had this same problem on previous admissions and has typically cleared his sensorium over a few days. Continue to monitor and manage with supportive cares. Status: Acute (7) Elevated lactic acid level: Problem details: Improved since admission. Likely due to acute illness with dehydration and poor oral intake. Look for signs and symptoms of sepsis. Transplanted liver disease is a concern. Status: Acute (8) Abnormal CT scan, kidney: Problem details: 09/11/23 CT: Mild perinephric edema about the right lower quadrant transplant kidney similar to prior exam. This could be further evaluated with ultrasound if clinically indicated. Status: Acute (9) Acute kidney injury: Problem details: Improving Likely primarily due to dehydration. Continue to monitor and manage. Status: Acute (10) Noncompliance with medications: Problem details: Unknown how compliant he has been with medication. On admission with altered mental status he was unable to tell how and when he was taking his medications. This winter he was treated for C diff with vancomycin and it is unclear if he took the vancomycin. He was also referred to [facility] for C diff and he did not follow through with that. Status: Suspected (11) Elevated troponin: Problem details: - Not associated with EKG changes or chest pain. Stable, asymptomatic, not increasing. Monitor on telemetry. Recheck troponin in am. Type 2 [place] or myocardial stress injury most likely explanation Status: Acute (12) Type 2 diabetes mellitus: Problem details: Poorly controlled blood sugars. Combination of acute illness and probably not taking his medications. Probably contributing to altered mental status and dehydration. Restart glipizide Status: Chronic (13) Kidney transplant recipient: Problem details: Resume transplant medications. On admission had creatinine of 2.2. With rehydration creatinine is 1.2 on September 12 Status: Chronic (14) Liver transplant recipient: Problem details: Resume transplant medications. On admission had elevated bilirubin with normal transaminases. Continue to monitor Status: Chronic (15) Adult failure to thrive: Problem details: Has had recurrent hospitalizations with altered mental status, poor oral intake, possible medication noncompliance, profound weakness and concern about ability to care for himself independently. - Physical therapy, occupational therapy, home health care social worker to consult and assist with evaluation and recommendations. Status: Acute (16) Discharge planning issues: Problem details: Concern about patient's ability live safely independently, manage serious medical problems with high risk medications including transplant medications. Uncertain if he can be safely living independently Status: Acute Time Spent With Patient Total time spent: Total time spent today is 60 minutes, 40 minutes in coordination of care and discussing with patient other providers ongoing evaluation management of esophageal I it is, weakness, altered mental status, transplant. Subjective Date Seen: 09/13/23 Interval history: Bari Mora is a 73 year old male chronically immunocompromised with a history of liver and kidney transplant, history of alcohol use, recurrent C diff colitis and diarrhea, type 2 diabetes, coronary artery disease, and hypertension whose brother found him sleeping in bed today, difficult to arouse. I spoke with his brother, Michael, over the phone this evening. Lito has had episodes like this before and was here last March for something similar. When discharged from the hospital in March, he was set up with a county nurse to come in set up medications for him, but somehow this fell through and Michael thinks that this never actually happened. Lito has been managing his own meds. According to Dr. Astorga's clinic notes, Lito has continued to have diarrhea from a C diff episode in February and apparently never took the long course of vancomycin that was prescribed for him when Dr. Boyle saw Lito in June, he referred him to [facility] and gave him the long course of vancomycin for presumed C diff, although a C diff sample was not obtained at that time. It appears that the referral was put in, but Michael thinks that Lito never followed through with this. Michael last spoke with Lito last Tuesday or and Lito was supposed to come over to Michael's house later that day, but never did. Michael notes that this is not unusual and so he did not think much of it. Today he went to check on Lito and found him in his bed sleeping. The lawn had not been cared for for weeks although the house appeared clean. Lito was asleep in the bed even though kitchen faucet was running full stream. Lito would not get up out of bed, so Michael called 911. Lito told Michael that he had not taken any pills yet today. Michael found the pillbox and noticed it was empty. Lito is unable to give much history, but does say that he normally wears a fentanyl patch but does not have 1 on today. He has no idea why. Evaluation in the emergency room and on admission showed an elevated lactate which improved with fluid resuscitation. He had an elevated creatinine at 2.2 which also improved. His glucose was 444 and improved to 231. He had an elevated troponin at 0.15 which is also improved to 0.1. He has had no chest pain. Electrocardiogram shows no ischemic changes. Venous blood gas was normal. CBC was relatively normal with a white count of 11 but no other marked abnormalities. Bilirubin elevated at 3.1 with normal transaminases. Urine toxicology shows THC. No alcohol in his blood. CT chest abdomen pelvis showed thickening of the mid to distal esophagus with surrounding edema suggestive of esophagitis. Perinephric stranding around transplanted kidney in the right lower quadrant. Otherwise unremarkable. September 11: I see the patient this morning he is oriented to being in the hospital but does not know the day or date. He does recall that his brother called the ambulance but does not remember the details or circumstances around that. He thinks he took his medications yesterday morning but does not recall much other detail from yesterday. He can at answer other simple questions about past medical history including details about his diarrhea, C diff treatment, use a fentanyl patch. He normally puts a fentanyl patch on his left shoulder but it was not noted to be present in the emergency department and I cannot find today. He does not know what has happened with it or when was last applied or fallen off. He does report that he is having some abdominal pain today. He also has nausea. September 12: Per nursing notes overnight patient is stronger and more mobile more alert and interactive. Continues to report a pain with swallowing and poor appetite. He is taking in very little p.o. food and fluid. His not currently having diarrhea. No bowel movement today. He is voiding modest amounts. Upper endoscopy today shows severe esophagitis Exam Narrative: Exam Narrative: He is seen after his endoscopy and is still somewhat sleepy from sedation. He arouses to voice. Respirations are clear to auscultation. Breathing is unlabored. Cardiovascular: S1, S2, regular rate and rhythm. Abdomen is soft with mild right-sided tenderness. No mass. Bowel sounds are active. Extremities without edema. Const: Vital Signs, click to edit/add: Vital Signs - 24 hr 09/12/23 15:00 09/12/23 15:00 09/12/23 15:00 Temperature 97.8 F Pulse Rate Pulse Rate [Left P ulse Oximeter] 109 H 109 H Respiratory Rate 18 18 18 Blood Pressure [Ri ght Arm] 139/87 Pulse Oximetry 97 98 Oxygen Delivery Me thod Room Air Room Air 09/12/23 15:00 09/12/23 19:00 09/12/23 23:00 Temperature 97.4 F L Pulse Rate 114 H Pulse Rate [Left P ulse Oximeter] 104 H Respiratory Rate 18 18 Blood Pressure [Ri ght Arm] 179/68 H Pulse Oximetry 98 Oxygen Delivery Me thod Room Air 09/12/23 23:00 09/12/23 23:00 09/12/23 23:00 Temperature 97.4 F L Pulse Rate 109 H Pulse Rate [Left P ulse Oximeter] 113 H Respiratory Rate 18 18 Blood Pressure [Ri ght Arm] 138/86 Pulse Oximetry 98 98 Oxygen Delivery Me thod Room Air Room Air 09/13/23 03:00 09/13/23 07:13 09/13/23 07:30 Temperature 97.5 F L 98.7 F Pulse Rate 109 H Pulse Rate [Left P ulse Oximeter] 108 H 115 H Respiratory Rate 18 18 Blood Pressure [Ri ght Arm] 161/86 H 147/77 H Pulse Oximetry 99 97 Oxygen Delivery Me thod Room Air Room Air 09/13/23 07:36 09/13/23 07:38 09/13/23 11:30 Temperature 98.7 F Pulse Rate Pulse Rate [Left P ulse Oximeter] 115 H 103 H Respiratory Rate 18 18 18 Blood Pressure [Ri ght Arm] 161/99 H Pulse Oximetry 97 97 Oxygen Delivery Me thod Room Air Room Air Documenting provider has reviewed patient's vital signs: yes Labs Labs: Laboratory Results - last 24 hr 09/13/23 07:40 WBC 4.63 RBC 3.79 L Hgb 12.3 L Hct 35.5 L MCV 94 MCH 33 MCHC 35 RDW Coeff of [place] 13.4 Plt Count 90 L Neut % (Auto) 79.5 H Lymph % (Auto) 13.2 L Newton % (Auto) 6.7 Eos % (Auto) 0.2 Baso % (Auto) 0.0 Neut # (Auto) 3.70 Lymph # (Auto) 0.60 L Newton # (Auto) 0.30 Eos # (Auto) 0.01 Baso # (Auto) 0.00 Abs Immat Gran (auto) 0.02 Imm/Tot Granulo (auto) 0.4 Sodium 135 Potassium 4.5 Chloride 105 Carbon Dioxide 24 Anion Gap 6 L BUN 30 Creatinine 1.2 Estimated Creat Clear 61.97 Estimated GFR 65 Glucose 215 H Calcium 9.1 Total Bilirubin 1.9 H AST 18 ALT 9 Alkaline Phosphatase 67 Total Protein 7.1 Albumin 4.0
[2023-09-13] MEDS: FLUCONAZOLE 100 MG TABLET 50 MG PO (14:25)
--- NOTE | 2023-09-13 16:19 | PC.SOCIAL ---
Addendum entered by UNRULY Hanley 09/13/23 16:45: Discharge planning: still worker helper spoke to Makennashayy Marquez #[phone], [facility] worker, and she confirmed that she is no longer working with the pt and that his case was closed. Social work to follow-up as needed. Original Note: Discharge planning: still worker helper attempted to meet with pt two times today. He first was not available due to EGD testing this morning. still worker helper attempted to meet with pt again this afternoon, but the pt was sleeping and would not wake to this worker's voice. Social work will attempt to meet with pt again tomorrow morning. Social work to follow-up as needed.
[2023-09-13] MEDS: NYSTATIN 500,000 UNIT/5 ML 500000 UNIT SWISH/SWAL ×2 (16:56→20:28)
[2023-09-13] MEDS: DIPHEN/LIDO/ALUM/MAG/SIMETH 5 ML SUSPENSION MUCOUS MEM (16:56)
[2023-09-13] MEDS: SUCRALFATE 1 GM TABLET PO ×2 (16:56→20:26)
--- NOTE | 2023-09-13 19:47 | PC.NURSE ---
end of shift. pt has been pleasant and alert x4. pain in the throat and md was notified and EGD was ordered. up with A1 to bedside commode. he is eating poorly drinking poor., IV is patent. he is incontinent of B and B. Contact precaution followed.
[2023-09-13] MEDS: ENOXAPARIN 40 MG/0.4 ML INJ SUBCUT (20:27)
[2023-09-13] MEDS: DOXAZOSIN 4 MG TABLET PO (20:27)
[2023-09-13] MEDS: SODIUM CHLORIDE 0.9 % (FLUSH) 10 ML SYRINGE 5 ML IVF (22:07)
[2023-09-14] VITALS (9 sets, daily range): BP systolic 126–170; BP diastolic 80–88; PULSE 97–110; RESP 16–20; TEMP 36.1–36.8; O2SAT 93–99; BMI 29.8
--- NOTE | 2023-09-14 05:46 | PC.NURSE ---
: pleasant and cooperative. SBA to BR, tolerated well. c/o throat pain and pain with swallowing, S&S given, encouraging oral intake. VSS. Tele - NSR/Sinus Tach.
[2023-09-14 08:28] LABS: Basophils Percent Auto 0.5 % (0.0-3.0); Eosinophils Percent Auto 0.5 % (0.0-7.0); Hematocrit 32.8 % (37.0-53.0); Hemoglobin* 11.4 gm/dL (13.5-17.5); Immature Granulocytes Pct Auto 0.5 %; Lymphocytes Percent Auto 18.9 % (20-44); Mean Corpuscular HGB Conc 35 gm/dL (32-36); Mean Corpuscular Hemoglobin 33 pg (26-34); Mean Corpuscular Volume 94 fL (80-100); Monocytes Percent Auto 5.6 % (0.0-11.0); Platelet Count* 86 K/uL (140-440); Red Blood Count 3.49 m/uL (4.30-5.90); White Blood Count* 3.75 K/uL (4.50-11.00)
[2023-09-14 08:32] LABS: Slide Review Reflex No
[2023-09-14] MEDS: TACROLIMUS 0.5 MG CAPSULE 1 MG PO ×2 (08:49→20:43)
[2023-09-14] MEDS: azaTHIOprine 50 MG TABLET 150 MG PO (08:49)
[2023-09-14] MEDS: INSULIN ASPART 100 UNIT/ML SUBCUT ×3 (08:49→22:05)
[2023-09-14] MEDS: NYSTATIN 500,000 UNIT/5 ML 500000 UNIT SWISH/SWAL ×4 (08:49→20:49)
[2023-09-14] MEDS: CITALOPRAM HYDROBROMIDE 20 MG TABLET PO (08:50)
[2023-09-14] MEDS: SUCRALFATE 1 GM TABLET PO ×4 (08:50→22:05)
[2023-09-14] MEDS: TAMSULOSIN HCL 0.4 MG CAPSULE PO (08:50)
[2023-09-14] MEDS: FLUCONAZOLE 100 MG TABLET PO (08:50)
[2023-09-14] MEDS: ASPIRIN 81 MG TAB.CHEW PO (08:50)
[2023-09-14] MEDS: MAGNESIUM OXIDE 400 MG TABLET 800 MG PO ×2 (08:50→20:41)
[2023-09-14] MEDS: CLOPIDOGREL 75 MG TABLET PO (08:50)
[2023-09-14] MEDS: SODIUM BICARBONATE 650 MG TABLET PO ×2 (08:51→20:40)
[2023-09-14] MEDS: glipiZIDE 5 MG TABLET PO (08:51)
[2023-09-14] MEDS: OMEPRAZOLE 20 MG CAPSULE DR PO ×2 (08:51→20:41)
[2023-09-14] MEDS: VANCOMYCIN 125 MG CAPSULE PO ×4 (08:51→20:40)
[2023-09-14] MEDS: MULTIVITAMIN/MINERALS 1 TABLET 1 TAB PO (08:52)
[2023-09-14 08:55] LABS: Troponin I* 0.02 ng/mL (0.01-0.04)
[2023-09-14] MEDS: fentaNYL 12 mcg/hr PATCH 1 PATCH TRANSDERMA (09:05)
[2023-09-14] MEDS: SODIUM CHLORIDE 0.9 % (FLUSH) 10 ML SYRINGE 5 ML IVF ×2 (09:06→20:45)
--- NOTE | 2023-09-14 10:53 | PC.SOCIAL ---
Discharge planning: odd job worker met with pt today in his room. Pt stated that he does not want to go to a intermediate after discharge. PT did recommend a SNF after meeting with the pt this past weekend, but since then pt has refused to meet with therapies. Pt stated that he does not want any services coming into his his home after discharge either due to feeling that they are never helpful. Social work to follow-up as needed.
[2023-09-14] MEDS: DIPHEN/LIDO/ALUM/MAG/SIMETH 5 ML SUSPENSION MUCOUS MEM ×3 (13:30→22:12)
--- NOTE | 2023-09-14 16:08 | P.IMPN_ITS ---
Progress Note: A&P Assessment and plan (1) Recurrent colitis due to Clostridioides difficile: Problem details: Improved. Acute on chronic problem. Probably has not been treated for months. Probably has never cleared his C diff infection. Unclear if this is the only acute problem causing his dehydration, acute kidney injury, altered mental status. Resume oral vancomycin. Repeat referral to GI. Status: Acute (2) Esophagitis: Problem details: Improved. Thickened esophagus on CT, pain and difficulty with swallowing, EGD showing severe esophagitis. Treat empirically with acid suppression and anti fungal treatment. Consider treatment for CMV if not improving with acid acid suppression and anti fungal. Status: Acute (3) Drug interaction: Problem details: Fluconazole and tacrolimus have a serious drug interaction. Will check tacrolimus serum level, treat with Diflucan at 100 mg daily, reduce tacrolimus to 1 mg b.i.d. pending serum level. Status: Acute (4) Malnutrition: Problem details: Patient has been unable to eat or drink substantial calories since hospitalization and probably for a few days before that. Difficult to quantify his oral intake. This is a combination of dysphagia due to esophagitis and poor appetite. Continue to monitor and manage. Advanced to regular diet with pureed solids to help with swallowing Status: Acute (5) Dehydration: Problem details: Patient has clinical and laboratory evidence of dehydration. Unclear if this is a result of his C diff diarrhea, esophagitis and/or altered mental status or partly the cause of his altered mental status. Transition from IV fluids to oral fluids and food Status: Acute (6) Metabolic encephalopathy: Problem details: Slowly improving. Multiple possible contributors. Has had this same problem on previous admissions and has typically cleared his sensorium over a few days. Continue to monitor and manage with supportive cares. Status: Acute (7) Elevated lactic acid level: Problem details: Improved since admission. Likely due to acute illness with dehydration and poor oral intake. Look for signs and symptoms of sepsis. Transplanted liver disease is a concern. Status: Acute (8) Abnormal CT scan, kidney: Problem details: 09/11/23 CT: Mild perinephric edema about the right lower quadrant transplant kidney similar to prior exam. This could be further evaluated with ultrasound if clinically indicated. Status: Acute (9) Acute kidney injury: Problem details: Improving Likely primarily due to dehydration. Continue to monitor and manage. Status: Acute (10) Noncompliance with medications: Problem details: Unknown how compliant he has been with medication. On admission with altered mental status he was unable to tell how and when he was taking his medications. This winter he was treated for C diff with vancomycin and it is unclear if he took the vancomycin. He was also referred to [facility] for C diff and he did not follow through with that. Status: Suspected (11) Elevated troponin: Problem details: - Not associated with EKG changes or chest pain. Stable, asymptomatic, not increasing. Monitor on telemetry. Recheck troponin in am. Type 2 ND or myocardial stress injury most likely explanation Status: Acute (12) Type 2 diabetes mellitus: Problem details: Poorly controlled blood sugars. Combination of acute illness and probably not taking his medications. Probably contributing to altered mental status and dehydration. Restart glipizide Status: Chronic (13) Kidney transplant recipient: Problem details: Resume transplant medications. On admission had creatinine of 2.2. With rehydration creatinine is 1.2 on September 12 Status: Chronic (14) Liver transplant recipient: Problem details: Resume transplant medications. On admission had elevated bilirubin with normal transaminases. Continue to monitor Status: Chronic (15) Adult failure to thrive: Problem details: Has had recurrent hospitalizations with altered mental status, poor oral intake, possible medication noncompliance, profound weakness and concern about ability to care for himself independently. - Physical therapy, occupational therapy, social work administrator to consult and assist with evaluation and recommendations. Status: Acute (16) Discharge planning issues: Problem details: Concern about patient's ability live safely independently, manage serious medical problems with high risk medications including transplant medications. Uncertain if he can be safely living independently Status: Acute Plan Continue in-hospital to treat acute esophagitis and swallowing problems, associated dehydration and malnutrition, C diff colitis., Time Spent With Patient Total time spent: Total time spent today is 50 minutes, 30 minutes in coordination of care discussing with patient other providers management of multiple medical problems above Subjective Date Seen: 09/14/23 Interval history: Bari Mora is a 73 year old male chronically immunocompromised with a history of liver and kidney transplant, history of alcohol use, recurrent C diff colitis and diarrhea, type 2 diabetes, coronary artery disease, and hypertension whose brother found him sleeping in bed today, difficult to arouse. I spoke with his brother, Michael, over the phone this evening. Lito has had episodes like this before and was here last March for something similar. When discharged from the hospital in March, he was set up with a county nurse to come in set up medications for him, but somehow this fell through and Michael thinks that this never actually happened. Lito has been managing his own meds. According to Dr. Astorga's clinic notes, Lito has continued to have diarrhea from a C diff episode in February and apparently never took the long course of vancomycin that was prescribed for him when Dr. Boyle saw Lito in June, he referred him to [facility] and gave him the long course of vancomycin for presumed C diff, although a C diff sample was not obtained at that time. It appears that the referral was put in, but Michael thinks that Lito never followed through with this. Michael last spoke with Lito last Tuesday or and Lito was supposed to come over to Michael's house later that day, but never did. Michael notes that this is not unusual and so he did not think much of it. Today he went to check on Lito and found him in his bed sleeping. The lawn had not been cared for for weeks although the house appeared clean. Lito was asleep in the bed even though kitchen faucet was running full stream. Lito would not get up out of bed, so Michael called 911. Lito told Michael that he had not taken any pills yet today. Michael found the pillbox and noticed it was empty. Lito is unable to give much history, but does say that he normally wears a fentanyl patch but does not have 1 on today. He has no idea why. Evaluation in the emergency room and on admission showed an elevated lactate which improved with fluid resuscitation. He had an elevated creatinine at 2.2 which also improved. His glucose was 444 and improved to 231. He had an elevated troponin at 0.15 which is also improved to 0.1. He has had no chest pain. Electrocardiogram shows no ischemic changes. Venous blood gas was normal. CBC was relatively normal with a white count of 11 but no other marked abnormalities. Bilirubin elevated at 3.1 with normal transaminases. Urine toxicology shows THC. No alcohol in his blood. CT chest abdomen pelvis showed thickening of the mid to distal esophagus with surrounding edema suggestive of esophagitis. Perinephric stranding around transplanted kidney in the right lower quadrant. Otherwise unremarkable. September 11: I see the patient this morning he is oriented to being in the hospital but does not know the day or date. He does recall that his brother called the ambulance but does not remember the details or circumstances around that. He thinks he took his medications yesterday morning but does not recall much other detail from yesterday. He can at answer other simple questions about past medical history including details about his diarrhea, C diff treatment, use a fentanyl patch. He normally puts a fentanyl patch on his left shoulder but it was not noted to be present in the emergency department and I cannot find today. He does not know what has happened with it or when was last applied or fallen off. He does report that he is having some abdominal pain today. He also has nausea. September 12: Per nursing notes overnight patient is stronger and more mobile more alert and interactive. Continues to report a pain with swallowing and poor marcia etite. He is taking in very little p.o. food and fluid. His not currently having diarrhea. No bowel movement today. He is voiding modest amounts. Upper endoscopy today shows severe esophagitis September 13: Patient reports doing a little better today. He is swallowing a little better. He had chest pain this morning. He reported he had pain near his sternal notch when he swallowed. No other chest pain. No shortness of breath. He is taking in a little bit more p.o. food and fluid and feels a little stronger. No bowel movement today Exam Narrative: Exam Narrative: He is alert and appears in no distress. More interactive today. Respirations are clear to auscultation. Cardiovascular: S1, S2, regular rate and rhythm. No murmur gallop or rub. Abdomen: Bowel sounds active. Abdomen is soft without tenderness or mass. Extremities with trace edema. Const: Vital Signs, click to edit/add: Vital Signs - 24 hr 09/13/23 19:00 09/13/23 22:05 09/13/23 22:43 Temperature 97 F L Pulse Rate 99 Pulse Rate [Left P ulse Oximeter] 105 H Respiratory Rate 18 18 Blood Pressure [Ri ght Arm] 150/91 H Pulse Oximetry 99 99 Oxygen Delivery Me thod Room Air Room Air 09/13/23 22:53 09/13/23 23:00 09/14/23 03:00 Temperature 97.7 F Pulse Rate Pulse Rate [Left P ulse Oximeter] 101 H 100 Respiratory Rate 20 20 20 Blood Pressure [Ri ght Arm] 162/91 H Pulse Oximetry 98 Oxygen Delivery Me thod Room Air Room Air 09/14/23 06:45 09/14/23 07:05 09/14/23 07:45 Temperature Pulse Rate 103 H Pulse Rate [Left P ulse Oximeter] 100 Respiratory Rate 20 16 Blood Pressure [Ri ght Arm] Pulse Oximetry 94 Oxygen Delivery Me thod Room Air 09/14/23 07:45 09/14/23 07:45 09/14/23 11:19 Temperature 96.9 F L 97.0 F L Pulse Rate Pulse Rate [Left P ulse Oximeter] 110 H 110 H 104 H Respiratory Rate 20 20 18 Blood Pressure [Ri ght Arm] 155/80 H 126/81 Pulse Oximetry 98 96 Oxygen Delivery Me thod Room Air Room Air 09/14/23 15:45 09/14/23 15:45 09/14/23 15:45 Temperature 97.2 F L Pulse Rate 99 Pulse Rate [Left P ulse Oximeter] 97 Respiratory Rate 18 18 Blood Pressure [Ri ght Arm] 167/81 H Pulse Oximetry 93 93 Oxygen Delivery Me thod Room Air Room Air 09/14/23 15:45 Temperature Pulse Rate Pulse Rate [Left P ulse Oximeter] 97 Respiratory Rate 18 Blood Pressure [Ri ght Arm] Pulse Oximetry Oxygen Delivery Me thod Documenting provider has reviewed patient's vital signs: yes Labs Labs: Laboratory Results - last 24 hr 09/14/23 08:15 WBC 3.75 L RBC 3.49 L Hgb 11.4 L Hct 32.8 L MCV 94 MCH 33 MCHC 35 RDW Coeff of Warren 13.0 Plt Count 86 L Neut % (Auto) 74.0 H Lymph % (Auto) 18.9 L Bryan % (Auto) 5.6 Eos % (Auto) 0.5 Baso % (Auto) 0.5 Neut # (Auto) 2.80 Lymph # (Auto) 0.70 L Bryan # (Auto) 0.20 Eos # (Auto) 0.00 Baso # (Auto) 0.00 Abs Immat Gran (auto) 0.00 Imm/Tot Granulo (auto) 0.5 Troponin I 0.02
--- NOTE | 2023-09-14 17:35 | PC.NURSE ---
End of shift. pt is pleasant and alert x4. he is eating, drinking and voiding. he was incontinent of urine x2. up with A1 to BR. . poor intake encouraged intake. he wants to sleep SL is patent x2. Contact precaution followed. PT and OT worked with him. SS was in to see him. he wants to go home.
[2023-09-14] MEDS: DOXAZOSIN 4 MG TABLET PO (20:42)
[2023-09-14] MEDS: ENOXAPARIN 40 MG/0.4 ML INJ SUBCUT (20:48)
[2023-09-15] VITALS (11 sets, daily range): BP systolic 121–164; BP diastolic 69–89; PULSE 90–109; RESP 16–18; TEMP 36.2–36.7; O2SAT 96–98
--- NOTE | 2023-09-15 05:57 | PC.NURSE ---
Patient pleasant, alert and oriented. Transferred to bedside commode with walker and stand by assist of one. Both continent and incontinent of bladder. Used call light to make needs known. Reported throat pain rated 8/10?when swallowing. PRN Diphen/Lido/Alum/Mag/Simeth suspension given. ?
[2023-09-15 06:38] LABS: Basophils Percent Auto 0.3 % (0.0-3.0); Eosinophils Percent Auto 0.9 % (0.0-7.0); Hematocrit 32.5 % (37.0-53.0); Hemoglobin* 11.2 gm/dL (13.5-17.5); Immature Granulocytes Pct Auto 0.9 %; Lymphocytes Percent Auto 22.8 % (20-44); Mean Corpuscular HGB Conc 35 gm/dL (32-36); Mean Corpuscular Hemoglobin 33 pg (26-34); Mean Corpuscular Volume 95 fL (80-100); Monocytes Percent Auto 5.2 % (0.0-11.0); Neutrophils Percent Auto 69.9 % (42.0-72.0); Platelet Count* 105 K/uL (140-440); RDW Coefficient of Variation % 13.1 % (11.5-15.5); Red Blood Count 3.41 m/uL (4.30-5.90); White Blood Count* 3.25 K/uL (4.50-11.00)
[2023-09-15 06:45] LABS: Slide Review Reflex No
[2023-09-15] MEDS: MAGNESIUM OXIDE 400 MG TABLET 800 MG PO ×2 (08:57→20:46)
[2023-09-15] MEDS: NYSTATIN 500,000 UNIT/5 ML 500000 UNIT SWISH/SWAL ×4 (08:58→20:47)
[2023-09-15] MEDS: azaTHIOprine 50 MG TABLET 150 MG PO (08:58)
[2023-09-15] MEDS: ASPIRIN 81 MG TAB.CHEW PO (08:59)
[2023-09-15] MEDS: SUCRALFATE 1 GM TABLET PO ×4 (08:59→20:47)
[2023-09-15] MEDS: OMEPRAZOLE 20 MG CAPSULE DR PO ×2 (08:59→20:47)
[2023-09-15] MEDS: VANCOMYCIN 125 MG CAPSULE PO ×4 (08:59→20:46)
[2023-09-15] MEDS: MULTIVITAMIN/MINERALS 1 TABLET 1 TAB PO (09:00)
[2023-09-15] MEDS: glipiZIDE 5 MG TABLET PO (09:00)
[2023-09-15] MEDS: CITALOPRAM HYDROBROMIDE 20 MG TABLET PO (09:00)
[2023-09-15] MEDS: TAMSULOSIN HCL 0.4 MG CAPSULE PO (09:00)
[2023-09-15] MEDS: SODIUM BICARBONATE 650 MG TABLET PO ×2 (09:00→20:47)
[2023-09-15] MEDS: FLUCONAZOLE 100 MG TABLET PO (09:01)
[2023-09-15] MEDS: CLOPIDOGREL 75 MG TABLET PO (09:01)
[2023-09-15] MEDS: INSULIN ASPART 100 UNIT/ML SUBCUT ×3 (09:01→20:47)
[2023-09-15] MEDS: TACROLIMUS 0.5 MG CAPSULE 2 MG PO ×2 (09:09→20:46)
[2023-09-15] MEDS: DIPHEN/LIDO/ALUM/MAG/SIMETH 5 ML SUSPENSION MUCOUS MEM (09:10)
--- NOTE | 2023-09-15 13:46 | PM.IMPN1 ---
Progress Note: A&P Assessment and plan (1) Esophagitis: Problem details: Improved. Thickened esophagus on CT, pain and difficulty with swallowing, EGD showing severe esophagitis. This may be the primary cause of his dehydration and malnutrition along with C diff Treat empirically with acid suppression and anti fungal treatment. Consider treatment for CMV if not improving with acid acid suppression and anti fungal. Status: Acute (2) Recurrent colitis due to Clostridioides difficile: Problem details: Improved. Acute on chronic problem. Probably has not been treated for months. Probably has never cleared his C diff infection. Unclear if this is the primary problem causing his dehydration, acute kidney injury, altered mental status. Resume oral vancomycin. Repeat referral to GI. Status: Acute (3) Drug interaction: Problem details: Fluconazole and tacrolimus have a serious drug interaction. Previously patient is had tacrolimus level of 4.7. Yesterday was about 8.7. This was obtained while he was taking his normal dose of tacrolimus for at least 1 day and had been on Diflucan for 2 days. The therapeutic range for his kidney and liver transplant is about 5-15. Will continue Diflucan 100 mg daily and normal dose of tacrolimus 2 mg twice daily. Attempt to wean off Diflucan as soon as possible, possibly to topical nystatin swish and swallow. Recheck tacrolimus level next week if continuing on Diflucan. Use [facility] reference lab. Status: Acute (4) Malnutrition: Problem details: Patient has been unable to eat or drink substantial calories since hospitalization and probably for a few days before that. Difficult to quantify his oral intake. This is a combination of dysphagia due to esophagitis and poor appetite. Continue to monitor and manage. Advanced to regular diet with pureed solids to help with swallowing Status: Acute (5) Dehydration: Problem details: Patient has clinical and laboratory evidence of dehydration. Unclear if this is a result of his C diff diarrhea, esophagitis and/or altered mental status or partly the cause of his altered mental status. Transition from IV fluids to oral fluids and food Status: Acute (6) Metabolic encephalopathy: Problem details: Improving. Multiple possible contributors. Has had this same problem on previous admissions and has typically cleared his sensorium over a few days. Continue to monitor and manage with supportive cares. Status: Acute (7) Elevated lactic acid level: Problem details: Improved since admission. Likely due to acute illness with dehydration and poor oral intake. Look for signs and symptoms of sepsis. Transplanted liver disease is a concern. Status: Acute (8) Abnormal CT scan, kidney: Problem details: 09/11/23 CT: Mild perinephric edema about the right lower quadrant transplant kidney similar to prior exam. This could be further evaluated with ultrasound if clinically indicated. Status: Acute (9) Acute kidney injury: Problem details: Improving Likely primarily due to dehydration. Continue to monitor and manage. Status: Acute (10) Noncompliance with medications: Problem details: Unknown how compliant he has been with medication. On admission with altered mental status he was unable to tell how and when he was taking his medications. This winter he was treated for C diff with vancomycin and it is unclear if he took the vancomycin. He was also referred to [facility] for C diff and he did not follow through with that. Status: Suspected (11) Elevated troponin: Problem details: - Not associated with EKG changes or chest pain. Stable, asymptomatic, not increasing. Monitor on telemetry. Recheck troponin in am. Type 2 [place] or myocardial stress injury most likely explanation Status: Acute (12) Type 2 diabetes mellitus: Problem details: Poorly controlled blood sugars. Combination of acute illness and probably not taking his medications. Probably contributing to altered mental status and dehydration. Restart glipizide Status: Chronic (13) Kidney transplant recipient: Problem details: Resume transplant medications. On admission had creatinine of 2.2. With rehydration creatinine is 1.2 on September 12. Is due for follow-up with Transplant Clinic at the [facility] Status: Chronic (14) Liver transplant recipient: Problem details: Resume transplant medications. On admission had elevated bilirubin with normal transaminases. Continue to monitor. Is due for follow-up with the Transplant Clinic at the [facility] Status: Chronic (15) Adult failure to thrive: Problem details: Has had recurrent hospitalizations with altered mental status, poor oral intake, possible medication noncompliance, profound weakness and concern about ability to care for himself independently. - Physical therapy, occupational therapy, social sciences department chair to consult and assist with evaluation and recommendations. Patient has repeatedly declined senior living facility or any higher level of care or even home health nursing. Status: Acute (16) Discharge planning issues: Problem details: Concern about patient's ability live safely independently, manage serious medical problems with high risk medications including transplant medications. For the last 5 months he has been functional and out of the hospital. Historically when he gets sick he gets very ill and requires somebody from the outside like his brother to rescue him. Ongoing concerns about his safety in the home when he becomes ill. Status: Acute Plan Continue in hospital pending his ability to take in adequate p.o. food and fluid to maintain his own hydration and nutrition and strong enough to ambulate independently. Continue close monitoring of his medications and drug interactions. Time Spent With Patient Total time spent: Total time spent today is 55 minutes, 40 minutes in coordination of care and discussing with patient and other providers management of esophagitis, drug interactions, transplant organ care, disposition. Subjective Date Seen: 09/15/23 Interval history: Bari Mora is a 73 year old male chronically immunocompromised with a history of liver and kidney transplant, history of alcohol use, recurrent C diff colitis and diarrhea, type 2 diabetes, coronary artery disease, and hypertension whose brother found him sleeping in bed today, difficult to arouse. I spoke with his brother, Michael, over the phone this evening. Lito has had episodes like this before and was here last October, November, January, February and March for something similar. When discharged from the hospital in March, he was set up with a county nurse to come in set up medications for him, but somehow this fell through and Michael thinks that this never actually happened. Lito has been managing his own meds. According to Dr. Astorga's clinic notes, Lito has continued to have diarrhea from a C diff episode in February and apparently never took the long course of vancomycin that was prescribed for him when Dr. Boyle saw Lito in June, he referred him to [facility] and gave him the long course of vancomycin for presumed C diff, although a C diff sample was not obtained at that time. It appears that the referral was put in, but Michael thinks that Lito never followed through with this. Michael last spoke with Lito last Tuesday or and Lito was supposed to come over to Michael's house later that day, but never did. Michael notes that this is not unusual and so he did not think much of it. Today he went to check on Lito and found him in his bed sleeping. The lawn had not been cared for for weeks although the house appeared clean. Lito was asleep in the bed even though kitchen faucet was running full stream. Lito would not get up out of bed, so Michael called 911. Lito told Michael that he had not taken any pills yet today. Michael found the pillbox and noticed it was empty. Lito is unable to give much history, but does say that he normally wears a fentanyl patch but does not have 1 on today. He has no idea why. Evaluation in the emergency room and on admission showed an elevated lactate which improved with fluid resuscitation. He had an elevated creatinine at 2.2 which also improved. His glucose was 444 and improved to 231. He had an elevated troponin at 0.15 which is also improved to 0.1. He has had no chest pain. Electrocardiogram shows no ischemic changes. Venous blood gas was normal. CBC was relatively normal with a white count of 11 but no other marked abnormalities. Bilirubin elevated at 3.1 with normal transaminases. Urine toxicology shows THC. No alcohol in his blood. CT chest abdomen pelvis showed thickening of the mid to distal esophagus with surrounding edema suggestive of esophagitis. Perinephric stranding around transplanted kidney in the right lower quadrant. Otherwise unremarkable. September 11: I see the patient this morning he is oriented to being in the hospital but does not know the day or date. He does recall that his brother called the ambulance but does not remember the details or circumstances around that. He thinks he took his medications yesterday morning but does not recall much other detail from yesterday. He can at answer other simple questions about past medical history including details about his diarrhea, C diff treatment, use a fentanyl patch. He normally puts a fentanyl patch on his left shoulder but it was not noted to be present in the emergency department and I cannot find today. He does not know what has happened with it or when was last applied or fallen off. He does report that he is having some abdominal pain today. He also has nausea. September 12: Per nursing notes overnight patient is stronger and more mobile more alert and interactive. Continues to report a pain with swallowing and poor appetite. He is taking in very little p.o. food and fluid. His not currently having diarrhea. No bowel movement today. He is voiding modest amounts. Upper endoscopy today shows severe esophagitis September 13: Patient reports doing a little better today. He is swallowing a little better. He had chest pain this morning. He reported he had pain near his sternal notch when he swallowed. No other chest pain. No shortness of breath. He is taking in a little bit more p.o. food and fluid and feels a little stronger. No bowel movement today. September 14: Patient continues to improve his level of consciousness. He is now back to baseline in alertness and communication. Oriented to his circumstances. He reports no concerns today. He has had 1 normal stool today. No diarrhea. He reports his swallowing is better and his chest pain with swallowing is better. He is asking to advance his diet to more solid food. Reports no shortness of breath or fever. Exam Narrative: Exam Narrative: He is alert and appears in no distress. Oriented to his circumstances. Eyes normal. Oropharynx normal. Neck is supple without mass or adenopathy. Respirations are clear to auscultation. Cardiovascular: S1, S2, regular rhythm. Abdomen: Bowel sounds active. Abdomen is soft without tenderness or mass. Extremities with trace edema. Const: Vital Signs, click to edit/add: Vital Signs - 24 hr 09/14/23 15:45 09/14/23 15:45 09/14/23 15:45 Temperature 97.2 F L Pulse Rate 99 Pulse Rate [Left P ulse Oximeter] 97 Respiratory Rate 18 18 Blood Pressure [Le ft Arm] Blood Pressure [Ri ght Arm] 167/81 H Pulse Oximetry 93 93 Oxygen Delivery Me thod Room Air Room Air 09/14/23 15:45 09/14/23 19:00 09/14/23 22:21 Temperature 98.3 F Pulse Rate Pulse Rate [Left P ulse Oximeter] 97 104 H Respiratory Rate 18 16 18 Blood Pressure [Le ft Arm] 157/84 H Blood Pressure [Ri ght Arm] Pulse Oximetry 99 98 Oxygen Delivery Me thod Room Air Room Air 09/14/23 22:21 09/14/23 23:00 09/15/23 02:10 Temperature 98.1 F 98.1 F Pulse Rate 101 H Pulse Rate [Left P ulse Oximeter] 97 100 Respiratory Rate 18 16 Blood Pressure [Le ft Arm] 170/88 H 164/86 H Blood Pressure [Ri ght Arm] Pulse Oximetry 98 97 Oxygen Delivery Hi thod Room Air Room Air 09/15/23 07:16 09/15/23 07:58 09/15/23 08:24 Temperature 97.3 F L Pulse Rate 101 H Pulse Rate [Left P ulse Oximeter] 101 H Respiratory Rate 16 16 Blood Pressure [Le ft Arm] Blood Pressure [Ri ght Arm] 151/73 H Pulse Oximetry 98 98 Oxygen Delivery Me thod Room Air Room Air 09/15/23 08:25 09/15/23 11:50 Temperature 97.3 F L Pulse Rate Pulse Rate [Left P ulse Oximeter] 101 H 109 H Respiratory Rate 16 16 Blood Pressure [Le ft Arm] Blood Pressure [Ri ght Arm] 121/69 Pulse Oximetry 97 Oxygen Delivery Me thod Room Air Documenting provider has reviewed patient's vital signs: yes Labs Labs: Laboratory Results - last 24 hr 09/15/23 05:56 WBC 3.25 L RBC 3.41 L Hgb 11.2 L Hct 32.5 L MCV 95 MCH 33 MCHC 35 RDW Coeff of [place] 13.1 Plt Count 105 L Neut % (Auto) 69.9 Lymph % (Auto) 22.8 [place] % (Auto) 5.2 Eos % (Auto) 0.9 Baso % (Auto) 0.3 Neut # (Auto) 2.30 Lymph # (Auto) 0.70 L [place] # (Auto) 0.20 Eos # (Auto) 0.00 Baso # (Auto) 0.00 Abs Immat Gran (auto) 0.00 Imm/Tot Granulo (auto) 0.9
--- NOTE | 2023-09-15 18:51 | PC.NURSE ---
End of shift. pt is pleasant and alert x4. he is eating, drinking and voiding. he had a BM. up with A1 to BR. tele was d/c. SL is patent x2. Contact precaution followed. PT worked with him. and he said no to OT. SS was in to see him. he wants to go home.
[2023-09-15] MEDS: MORPHINE 2 MG/ML inj IVP ×2 (19:23→22:53)
[2023-09-15] MEDS: SODIUM CHLORIDE 0.9 % (FLUSH) 10 ML SYRINGE 5 ML IVF (20:47)
[2023-09-15] MEDS: DOXAZOSIN 4 MG TABLET PO (20:47)
[2023-09-15] MEDS: ENOXAPARIN 40 MG/0.4 ML INJ SUBCUT (20:47)
[2023-09-16 03:32] VITALS: BP 163/85; PULSE 97; RESP 16; TEMP 36.4; O2SAT 98
[2023-09-16] MEDS: phenoL 1.4 % THROAT SPRAY 1 SPRAY MUCOUS MEM ×2 (03:37→08:02)
--- NOTE | 2023-09-16 06:25 | PC.NURSE ---
End of shift [id number]: A&O pleasant and cooperative. Pt reports neck pain 2-8. See MAR for interventions. Denies difficulty breathing. Up w/ SBA walker and gait belt. Reports x1 small formed stool overnight. Using call light appropriately.
[2023-09-16 07:00] VITALS: BP 122/84; PULSE 84; RESP 18; TEMP 36.7; O2SAT 98
[2023-09-16 07:41] LABS: Basophils Percent Auto 0.3 % (0.0-3.0); Eosinophils Percent Auto 1.7 % (0.0-7.0); Hematocrit 31.5 % (37.0-53.0); Hemoglobin* 10.9 gm/dL (13.5-17.5); Immature Granulocytes Pct Auto 1.4 %; Lymphocytes Percent Auto 26.4 % (20-44); Mean Corpuscular HGB Conc 35 gm/dL (32-36); Mean Corpuscular Hemoglobin 33 pg (26-34); Mean Corpuscular Volume 94 fL (80-100); Monocytes Percent Auto 6.4 % (0.0-11.0); Neutrophils Percent Auto 63.8 % (42.0-72.0); Platelet Count* 115 K/uL (140-440); RDW Coefficient of Variation % 13.2 % (11.5-15.5); Red Blood Count 3.35 m/uL (4.30-5.90); White Blood Count* 2.96 K/uL (4.50-11.00)
[2023-09-16 07:44] LABS: Slide Review Reflex No
[2023-09-16] MEDS: glipiZIDE 5 MG TABLET PO (08:01)
[2023-09-16] MEDS: SUCRALFATE 1 GM TABLET PO (08:01)
[2023-09-16 08:06] LABS: Chloride* 101 mmol/L (96-114); Potassium* 3.6 mmol/L (3.6-5.1); Sodium* 134 mmol/L (135-149)
[2023-09-16 08:09] LABS: Anion Gap 2 mEq/L (7-15); Blood Urea Nitrogen* 18 mg/dL (7-30); Carbon Dioxide* 31 mmol/L (20-32); Creatinine* 1.3 mg/dL (0.5-1.5); Est. Creatinine Clearance* 57.21; Estimated Glomerular Filt Rate 59 ml/min
[2023-09-16 08:10] LABS: Calcium* 8.4 mg/dL (8.4-10.6); Glucose* 155 mg/dL (60-115)
[2023-09-16] MEDS: azaTHIOprine 50 MG TABLET 150 MG PO (08:42)
[2023-09-16] MEDS: TACROLIMUS 0.5 MG CAPSULE 2 MG PO (08:42)
[2023-09-16] MEDS: TAMSULOSIN HCL 0.4 MG CAPSULE PO (08:42)
[2023-09-16] MEDS: CLOPIDOGREL 75 MG TABLET PO (08:42)
[2023-09-16] MEDS: CITALOPRAM HYDROBROMIDE 20 MG TABLET PO (08:43)
[2023-09-16] MEDS: OMEPRAZOLE 20 MG CAPSULE DR PO (08:43)
[2023-09-16] MEDS: FLUCONAZOLE 100 MG TABLET PO (08:43)
[2023-09-16] MEDS: VANCOMYCIN 125 MG CAPSULE PO (08:43)
[2023-09-16] MEDS: MULTIVITAMIN/MINERALS 1 TABLET 1 TAB PO (08:43)
[2023-09-16] MEDS: SODIUM BICARBONATE 650 MG TABLET PO (08:43)
[2023-09-16] MEDS: MAGNESIUM OXIDE 400 MG TABLET 800 MG PO (08:43)
[2023-09-16] MEDS: ASPIRIN 81 MG TAB.CHEW PO (08:44)
[2023-09-16] MEDS: INSULIN ASPART 100 UNIT/ML SUBCUT (08:54)
[2023-09-16] MEDS: fentaNYL 12 mcg/hr PATCH 1 PATCH TRANSDERMA (08:55)
[2023-09-16] MEDS: NYSTATIN 500,000 UNIT/5 ML 500000 UNIT SWISH/SWAL (09:13)
--- NOTE | 2023-09-16 09:55 | P.DS_ITS ---
DS: Providers Provider Date Seen: 09/16/23 Date of admission: 09/12/23 13:17 Primary care physician: Rubén Boyle MD Admitting Clinician: Lyndsay Shirley MD Consults: 09/11/23 21:45 Consult to Occupational Therapy [CONS] Routine Comment: Reason(s) for OT Consult:: Evaluate and Treat Any Restrictions?:: No Restrictions Consult to Physical Therapy [CONS] Routine Comment: Reason(s) for PT Consult:: Evaluate and Treat Any Restrictions?:: No Restrictions Consult to Bar Finish Operator [CONS] Routine Comment: Reason for Consult:: Social Service Consult 09/13/23 13:50 Consult to Nutrition [CONS] Routine Comment: Reason for consult:: Nutritional Consult Attending Physician on discharge: Lyndsay Shirley MD DS: Diagnosis Discharge Diagnosis (1) Esophagitis: Status: Acute Problem details: - thickened esophagus noted on admission CT accompanied by dysphagia and odynophagia; EGD exhibited severe esophagitis (CMV vs opal) - possibly source of admission dehydration and malnutrition - BID PPI, Sulcralfate, and Diflucan initiated, biopsy results from EGD pending upon discharge (2) Drug interaction: Status: Acute Problem details: - Fluconazole and tacrolimus: serious drug interaction - prior to hospitalization, tacrolimus level of 4.7; during stay, level 8.7 (obtained while on normal dose of tacrolimus for at least 1 day, + 2 days of Diflucan) - therapeutic range of tacrolimus for his kidney and liver transplant is about 5-15 - significant improvement of esophagitis symptoms on 09/15; continue Diflucan 100 mg daily x2 more days upon discharge + normal dose of tacrolimus 2 mg BID - transition to Nystatin swish and swallow on 09/18 (3) Recurrent colitis due to Clostridioides difficile: Status: Acute Problem details: - acute on chronic, improved during stay (suspect that this is 2/2 poor compliance with oral Vancomyin as an outpatient) - continue oral vancomycin for 10 days upon d/c 09/15, repeat referral to GI (4) Malnutrition: Status: Acute Problem details: - mild; Lito was unable to eat or drink substantial calories since hospitalization and probably for a few days before that, in addition to hypoalbuminemia (5) Dehydration: Status: Acute Problem details: - clinical and laboratory evidence of dehydration, likely combination of confusion, C-diff, esophagitis - improvement to baseline during stay (6) Metabolic encephalopathy: Status: Acute Problem details: - resolved during stay, likely multifactorial (poor nutrition/dehydration, iatrogenic, hyperglycemia) (7) Elevated lactic acid level: Status: Acute Problem details: - normalized during stay with no evidence of infection other than C Diff (8) Abnormal CT scan, kidney: Status: Acute Problem details: - 09/11/23 CT: Mild perinephric edema about the right lower quadrant transplant kidney similar; outpatient f/u pending clinical course (9) Acute kidney injury: Status: Acute Problem details: - admission creatinine 2.2, improved with IVF and po intake; discharge creatinine 1.3 (10) Noncompliance with medications: Status: Suspected Problem details: - unclear home compliance, particularly with oral Vancomycin (11) Elevated troponin: Status: Acute Problem details: - peak at 0.15 without associated EKG changes or chest pain - reassuring telemetry during stay (12) Type 2 diabetes mellitus: Status: Chronic Problem details: - poorly controlled sugars with BG of >400 upon ED arrival - repeat A1C 5.9 - continued home dose of Glipizide; insulin had been discontinued in fall 2022 2/2 hypoglycemia (13) Kidney transplant recipient: Status: Chronic Problem details: - continued transplant medications during stay, ROSANA resolved (admission creatinine 2.2 --> 1.3 on discharge) - routine outpatient f/u with Transplant Clinic at the [facility] (14) Liver transplant recipient: Status: Chronic Problem details: - continued transplant medications during stay; admission bilirubin 3.1 --> 1.9 - due for follow-up with the Transplant Clinic at the [facility] (15) Adult failure to thrive: Status: Acute Problem details: - recurrent hospitalizations with AMS, poor oral intake, probable noncompliance, profound weakness and concern about ability to care for himself - therapies followed during stay - patient has repeatedly declined SNF or any higher level of care or even home health nursing, brother is aware of this and checks on patient regularly DS: Summary Hospital Course Hospital Course: From H&P: Bari Mora is a 73 year old male chronically immunocompromised with a history of liver and kidney transplant, history of alcohol use, recurrent C diff colitis and diarrhea, type 2 diabetes, coronary artery disease, and hypertension whose brother found him sleeping in bed today, difficult to arouse. I spoke with his brother, Michael, over the phone this evening. Lito has had episodes like this before and was here last March for something similar. When discharged from the hospital in March, he was set up with a county nurse to come in set up medications for him, but somehow this fell through and Michael thinks that this never actually happened. Lito has been managing his own meds. According to Dr. Astorga's clinic notes, Lito has continued to have diarrhea from a C diff episode in February and apparently never took the long course of vancomycin that was prescribed for him when Dr. Boyle saw Lito in June, he referred him to [facility] and gave him the long course of vancomycin for presumed C diff, although a C diff sample was not obtained at that time. It appears that the referral was put in, but Michael thinks that Lito never followed through with this. Michael last spoke with Lito last Tuesday or and Lito was supposed to come over to Michael's house later that day, but never did. Michael notes that this is not unusual and so he did not think much of it. Today he went to check on Lito and found him in his bed sleeping. The lawn had not been cared for for weeks although the house appeared clean. Lito was asleep in the bed even though kitchen faucet was running full stream. Lito would not g et up out of bed, so Michael called 911. Lito told Michael that he had not taken any pills yet today. Michael found the pillbox and noticed it was empty. Lito is unable to give much history, but does say that he normally wears a fentanyl patch but does not have 1 on today. He has no idea why. During stay, patient was found to have significantly decreased p.o. intake, likely secondary to his Candidal (vs CMV) esophagitis. He was started on Diflucan, Omeprazole, and Sucralfate with significant improvement in symptoms, he was able to increase his po intake back to baseline. Other notable findings during stay: ROSANA, Confusion upon admission, recurrent C- Diff, weakness - resolved. He worked with therapies and was able to ambulate independently on 09/15, requesting discharge home. Given concerns for medication compliance, re-admission, and poor self care, SNF stay recommended and patient refused. Brother aware of recommendations and will continue to check on patient regularly; Lito will also have close f/u with his PCP. Time Spent with Patient Time attestation: Total time spent providing and/or coordinating discharge services: Time spent: Greater than 30 minutes Specific discharge activities: patient education, update to brother, medication reconciliation Exam Narrative: Exam Narrative: GEN: Alert and sitting comfortably in bed, nontoxic CV: RRR, No concerning murmurs R: LCTA bilaterally without concerning wheezing Neuro: No focal deficits, gait not observed Psych: Appropriate Const: Vital Signs, click to edit/add: Vital Signs - 24 hr 09/15/23 11:50 09/15/23 15:45 09/15/23 15:45 Temperature 97.3 F L Pulse Rate [Left P ulse Oximeter] 109 H 100 Respiratory Rate 16 16 16 Blood Pressure [Le ft Arm] Blood Pressure [Ri ght Arm] 121/69 Pulse Oximetry 97 97 Oxygen Delivery Me thod Room Air Room Air 09/15/23 15:49 09/15/23 19:15 09/15/23 22:36 Temperature 97.2 F L 97.5 F L 97.5 F L Pulse Rate [Left P ulse Oximeter] 100 97 90 Respiratory Rate 16 16 18 Blood Pressure [Le ft Arm] Blood Pressure [Ri ght Arm] 135/89 140/77 H 159/86 H Pulse Oximetry 97 98 96 Oxygen Delivery Me thod Room Air Room Air Room Air 09/15/23 22:58 09/16/23 03:32 09/16/23 07:00 Temperature 97.6 F 98.0 F Pulse Rate [Left P ulse Oximeter] 97 84 Respiratory Rate 18 16 18 Blood Pressure [Le ft Arm] 122/84 Blood Pressure [Ri ght Arm] 163/85 H Pulse Oximetry 96 98 98 Oxygen Delivery Me thod Room Air Room Air Room Air 09/16/23 07:00 09/16/23 07:00 Temperature Pulse Rate [Left P ulse Oximeter] 84 Respiratory Rate 18 18 Blood Pressure [Le ft Arm] Blood Pressure [Ri ght Arm] Pulse Oximetry 98 Oxygen Delivery Me thod Room Air DS: Data Data Completed and Pending Completed studies during hospitalization: Procedures Transfusion of Nonautologous Red Blood Cells into Peripheral Vein, Percutaneous Approach (11/26/22) Labs on day of discharge: Labs from last 24 hours 09/16/23 06:57 WBC 2.96 L RBC 3.35 L Hgb 10.9 L Hct 31.5 L MCV 94 MCH 33 MCHC 35 RDW Coeff of Warren 13.2 Plt Count 115 L Neut % (Auto) 63.8 Lymph % (Auto) 26.4 Buchanan % (Auto) 6.4 Eos % (Auto) 1.7 Baso % (Auto) 0.3 Neut # (Auto) 1.90 Lymph # (Auto) 0.80 L Buchanan # (Auto) 0.20 Eos # (Auto) 0.10 Baso # (Auto) 0.00 Abs Immat Gran (auto) 0.00 Imm/Tot Granulo (auto) 1.4 Sodium 134 L Potassium 3.6 Chloride 101 Carbon Dioxide 31 Anion Gap 2 L BUN 18 Creatinine 1.3 Estimated Creat Clear 57.21 Estimated GFR 59 Glucose 155 H Calcium 8.4 Preliminary micro results at discharge 09/11/23 18:35 Blood Culture - Preliminary Blood NO GROWTH AFTER 96 HOURS 09/11/23 18:42 Blood Culture - Preliminary Blood NO GROWTH AFTER 96 HOURS Discharge Plan Discharge Disposition: Home, Self-Care Date of Admission: 09/12/23 13:17 Attending Provider on Discharge: Tara Acevedo Primary Care Provider: Rubén Boyle Condition: Improved Anticipated Discharge Date/Time: 09/16/23 09:39 Discharge Medications: New fluconazole [Diflucan] 100 mg Tablet 100 mg PO DAILY 2 Days Qty: 2 0RF nystatin 100,000 unit/mL Suspension 500,000 unit SWISH/SWAL QID 14 Days Qty: 280 0RF Rx Instructions: this is for esophagitis sucralfate 1 gram Tablet 1 g PO ACHS 7 Days Qty: 28 0RF citalopram 20 mg Tablet 20 mg PO DAILY Qty: 90 0RF Rx Instructions: please note dose decrease omeprazole 20 mg Capsule,Delayed Release(Dr/Ec) 20 mg PO BID 30 Days Qty: 60 0RF vancomycin 125 mg Capsule 125 mg PO QID 10 Days Qty: 40 0RF Continued gabapentin 300 mg capsule 300 mg PO BID Qty: 180 1RF famotidine 40 mg tablet 40 mg PO QHS Qty: 90 3RF multivitamin [Daily Multi-Vitamin] Tablet 1 tab PO DAILY magnesium oxide 400 mg (241.3 mg magnesium) tablet 800 mg PO BID furosemide 20 mg tablet 20 mg PO DAILY PRN clopidogrel 75 mg tablet 75 mg PO DAILY doxazosin 4 mg tablet 4 mg PO HS azathioprine 50 mg tablet 150 mg PO DAILY sodium bicarbonate 650 mg tablet 650 mg PO BID aspirin [Adult Aspirin Regimen] 81 mg tablet,delayed release (DR/EC) 81 mg PO DAILY tacrolimus 0.5 mg capsule 2 mg PO BID Patient Comments: tamsulosin 0.4 mg capsule 0.4 mg PO DAILY ergocalciferol (vitamin D2) 50 mcg (2,000 unit) tablet 50 mcg PO DAILY atorvastatin 20 mg tablet 20 mg PO HS Qty: 90 3RF glipizide 5 mg tablet 5 mg PO DAILYWM Qty: 30 1RF Rx Instructions: For diabetes. No insulin now. fentanyl 12 mcg/hr patch 72 hour 1 patch transdermal Q48H Qty: 15 0RF Discontinued citalopram 40 mg tablet 40 mg PO DAILY Discharge Orders: Discharge Order (Routine); Ordered 09/16/23 Ordered By: Tara Acevedo Patient Education: Sucralfate (By mouth) (Carafate), Nystatin (On the skin), Omeprazole (By mouth), Fluconazole (By mouth) (Diflucan), Vancomycin (By mouth), Citalopram (By mouth), Altered Mental Status (ED) Additional Instructions: There are FOUR medications for you at [facility]: 1. Fluconazole (for your esophagitis pain) for two more days 2. Nystatin SWISH AND SWALLOW - this will also help with your esophagitis pain 3. Sucralfate: also for your esophagitis 4. Vancomycin: you take this four times/day for your C DIFF TWO medications at your Mail-in Pharmacy: 1. Omeprazole (for acid reflux and esophagitis), take twice/day and this will help you eat 2. NEW DOSE OF CITALOPRAM: we are DECREASING this to 20mg from 40mg. Cut your Citalopram pills at home in half while awaiting a refill. I think it would be a really good idea for you to taper off of your Fentanyl patch - this can cause drowsiness and decrease your cognition. Talk with Dr. Boyle about this - it's also a good idea to consider having [facility] come in and help set up your medications, check on you regularly, etc. Activity Level: No strenuous activity Discharge Diet: Diabetic Follow Up Appointments: Rubén Boyle MD [Primary Care Provider] - 09/21/23 12:00 pm ([facility] for post hospital follow-up ) Forms: E-Box - [email or web address] Info Instructions
--- NOTE | 2023-09-16 11:43 | PC.SOCIAL ---
Discharge planning: Social work assisted with coordinating transportation for pt at discharge today. Pt's brother, Michael, will come pick him up. expeller worker let charge nurse on duty know. expeller worker also notified pt's direct nurse. expeller worker also provided pt with The Important Message from Medicare form and explained the discharge appeal process. Pt is not interested in appealing his discharge and is happy to go home today. Social work to follow-up as needed.
--- NOTE | 2023-09-16 14:46 | PC.NURSE ---
Discharge: Patient cooperative, A&O. VSS, afebrile. Denies pain this shift. SBA to chair. Discharged to home with brother. Discharge instructions provided to patient and his brother on medications, follow up appointment, and diet, all questions answered. IV's both removed with tip intact.
== END 2023-09-16 13:19 | disposition home or self-care (01) | DRG 380 ==
LOC: ED 17:16 → MEDSURG 21:43
PROVIDERS: Admitting Provider Family Medicine; Emergency Provider Emergency Medicine; PCP Family Medicine; Visit Provider Family Medicine
DX: K22.10 Ulcer of esophagus without bleeding (principal); G93.41 Metabolic encephalopathy; Z94.0 Kidney transplant status; Z94.4 Liver transplant status; A04.71 Enterocolitis due to Clostridium difficile, recurrent; N17.9 Acute kidney failure, unspecified; I13.0 Hypertensive heart and chronic kidney disease with heart failure and stage 1 through stage 4 chronic kidney disease, or unspecified chronic kidney disease; E46 Unspecified protein-calorie malnutrition; E44.1 Mild protein-calorie malnutrition; D84.81 Immunodeficiency due to conditions classified elsewhere; R79.89 Other specified abnormal findings of blood chemistry; I50.9 Heart failure, unspecified; N18.9 Chronic kidney disease, unspecified; Z91.148 Patient's other noncompliance with medication regimen for other reason; E86.0 Dehydration; R93.429 Abnormal radiologic findings on diagnostic imaging of unspecified kidney; R62.7 Adult failure to thrive; N40.0 Benign prostatic hyperplasia without lower urinary tract symptoms; E11.40 Type 2 diabetes mellitus with diabetic neuropathy, unspecified; E11.65 Type 2 diabetes mellitus with hyperglycemia; F33.9 Major depressive disorder, recurrent, unspecified; Z79.4 Long term (current) use of insulin; Z95.5 Presence of coronary angioplasty implant and graft; E11.22 Type 2 diabetes mellitus with diabetic chronic kidney disease; G89.29 Other chronic pain; M25.551 Pain in right hip; E78.5 Hyperlipidemia, unspecified; F10.11 Alcohol abuse, in remission; T37.8X5A Adverse effect of other specified systemic anti-infectives and antiparasitics, initial encounter; T45.1X5A Adverse effect of antineoplastic and immunosuppressive drugs, initial encounter
CPT/HCPCS: G9341; 00731; 36415; 43239; 70450; 71250; 74176; 80048; 80053; 80197; 80306; 81001; 82077; 82140; 82803; 82962; 83036; 83605; 83690; 83735; 84100; 84484; 85025; 85610; 86140; 87040; 87493; 87631; 88305; 88312; 88341; 88342; 93005; 97110; 97112; 97116; 97163; 97166; 97530; 97535; 99100; 99140; 99285; G0378; A9153; A9270; C9113; J1650; J2270; J2543; J2704; J3490; J7120; J7500; J7507

== ENCOUNTER 2023-09-17 09:32 | Outpatient (CLI) | payer MEDICARE, BC, SELFPAY | END 2023-09-17 09:33 | disposition home or self-care (01) | LOC: LAB 09:33 | PROVIDERS: PCP Family Medicine; Visit Provider Family Medicine | DX: Z94.0 Kidney transplant status (principal); Z79.899 Other long term (current) drug therapy; Z98.890 Other specified postprocedural states | CPT/HCPCS: 36415; 80197 ==

== ENCOUNTER 2023-09-27 14:44 | Outpatient (CLI) | payer MEDICARE, BC, SELFPAY | END 2023-09-27 14:45 | disposition home or self-care (01) | PROVIDERS: PCP Family Medicine; Visit Provider Family Medicine | DX: R53.1 Weakness (principal); E11.9 Type 2 diabetes mellitus without complications; I10 Essential (primary) hypertension; Z79.899 Other long term (current) drug therapy; Z94.0 Kidney transplant status; Z98.890 Other specified postprocedural states | CPT/HCPCS: 80048; 80197; 83735; 85025 ==

== ENCOUNTER 2023-12-13 15:58 | Outpatient (CLI) | payer MEDICARE, BC, SELFPAY | END 2023-12-13 15:59 | disposition home or self-care (01) | PROVIDERS: PCP Family Medicine; Visit Provider Family Medicine | DX: Z01.818 Encounter for other preprocedural examination (principal); I10 Essential (primary) hypertension; E11.9 Type 2 diabetes mellitus without complications | CPT/HCPCS: 80048; 80061; 85025 ==

== ENCOUNTER 2023-12-15 10:01 | Outpatient (CLI) | payer MEDICARE, BC, SELFPAY ==
--- OUTSIDE RECORDS SUMMARY | 2023-12-15 10:04 | XMS_ITS | Encounter Summary ---
Author Organization [facility] Address [address] [place] [address]. [place] [address] Care Team Providers Care Carpenter Apprentice Name Role Phone Rubén Boyle MD Primary Care Provider [phone] Pamela Blanco TRUCK TERMINAL MANAGER Unavailable Pedro Segura MD Unavailable Freddy Craft MD Unavailable Nicole Carranza TRUCK TERMINAL MANAGER Unavailable Andressa Ruiz PA-C Unavailable Suzan Harry MD Unavailable [phone] Yasmeen [place] MD Unavailable [phone] Yasmeen [place] MD Unavailable Encounter Details Date Type Department Care Team (Late st Contact Info) Description 11/18/2023 Orders Only [facility] [address] [place] [address] Freddy Craft MD [address] [facility] [address] [place] [address] 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) (Primary Dx) Social History Tobacco Use Types Packs/Day Years Used Date Smoking Tobacco: Former Cigarettes Q uit: 04/18/1985 Smokeless Tobacco: Never Comments:quit years ago Alcohol Use Standard Drinks/Week Comments No 0 (1 standard drink = 0.6 oz pur e alcohol) quit Dec 2015 PHQ-2 Answer Date Recorded PHQ-2 Score 0 10/11/2023 Adolescent Education Answer Date Record ed Getting School Help Needed Not on file 01/07 Sex and Gender Information Value Date Recorded Sex Assigned at Not on file Gender Identity Not on file Sexual Orientation Not on file documented as of this encounter Plan of Treatment Scheduled Orders Name Type Priority Associated Diagnoses Orde r Schedule Basic metabolic panel Lab Routine 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) Every 2 Months for 12 Occurrences starting 11/18/2023 until 11/17/2024 CBC with platelets Lab Routine 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) Every 2 Months for 12 Occurrences starting 11/18/2023 until 11/17/2024 Hepatic panel Lab Routine 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) Every 2 Months for 12 Occurrences starting 11/18/2023 until 11/17/2024 Lipid Profile Lab Routine 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) Expected: 12/19/2023 (Approximate), Expires: 11/17/2024 Protein random urine Lab Routine 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) Expected: 12/19/2023 (Approximate), Expires: 11/17/2024 UA reflex to Microscopic Lab Routine 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) Expected: 12/19/2023 (Approximate), Expires: 11/17/2024 Magnesium (if on HBV anti-viral) Lab Routine 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) Every 2 Months for 12 Occurrences starting 11/18/2023 until 11/17/2024 Phosphorus (if on HBV anti-viral) Lab Routine 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) Every 2 Months for 12 Occurrences starting 11/18/2023 until 11/17/2024 Tacrolimus by Tandem Mass Spectrometry Lab Routine 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) Every 2 Months for 12 Occurrences starting 11/18/2023 until 11/17/2024 documented as of this encounter Visit Diagnoses Diagnosis 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)- Primary Liver replaced by transplant documented in this encounter Additional Health Concerns Infection Onset Date Last Indicated Resolved Time 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/16 urine, 07/10/16 rectal swab 06/21/2016 06/21/2016 documented as of this encounter Care Teams Carpenter Apprentice Relationship Specialty Start Date End Date Rubén Boyle MD PCP - General Family Practice 03/08/16 Pamela Blanco TRUCK TERMINAL MANAGER [facility] [address] [place], [place] [address] Referring Physician 07/13/[address] [facility] [address] [place], [place] [address] Nephrology 10/03/16 Freddy Craft MD [address] [facility] [address] [place], [place] [id number] Assigned Gastroenterology Provider 02/08/20 Nicole Carranza, [place] [address] [facility] [address] [place], [place] [id number] Assigned Heart and Vascular Provider 01/09/22 Andressa Ruiz PA-C [address] [facility] [address] [place], [place] [id number] Physician Belt And Link Shop Supervisor Endocrinology, Diabetes, and Metabolism 03/01/22 Suzan Harry MD [address] [place], [place] [address] Nephrology 06/30/23 Yasmeen [place] MD [address] [place], [place] [address] Nephrology 10/24/23 Yasmeen [place] MD [address] [place] [address] Assigned Nephrology Provider 11/08/23 documented as of this encounter
--- OUTSIDE RECORDS SUMMARY | 2023-12-15 10:04 | XMS_ITS | Clinical Summary ---
Author Organization [facility] Address [address] [place] [id number] Care Team Providers Care Chief Merchandising Officer Name Role Phone Rubén Boyle MD Primary Care Provider Pamela Blanco VERIFIER OPERATOR Unavailable Pedro Segura MD Unavailable Freddy Craft MD Unavailable Deshawn Guevara VERIFIER OPERATOR Unavailable Andressa Ruiz-C Unavailable Suzan Harry MD Unavailable [phone] Yasmeen Powers MD Unavailable [phone] Yasmeen Powers MD Unavailable Allergies Active Allergy Reactions Criticality Noted Date Comments Phytonadione Other (See Comments),Nausea 07/28/2016 IV formulation Nausea, diaphoresis Medications Medication Sig Dispensed Refills Start Date End Date Status multivitamin, therapeutic (THERA-VIT) TABS tabletIndications:supp lement Take 1 tablet by mouth daily 30 tablet 3 7 Active gabapentin (NEURONTIN) 600 MG tablet Take 600 mg by mouth 2 times daily Active oxyCODONE (ROXICODONE) 5 MG IR tablet Take 2.5-5 mg by mouth every 6 hours as needed 7 Active Insulin Pen Needle (PEN NEEDLES 08/31) 31G X 8 MM [facility] For administering insulin at home QID. 7 Active citalopram (CELEXA) 40 MG tabletIndications:Live r transplant recipient (H) Take 40 mg by mouth daily Prescribed by pcp 60 tablet 8 Active Cholecalciferol 100 MCG (4000 UT) CAPSIndications:Vitami n D deficiency Take 1 capsule by mouth daily 90 capsule 3 1 Active atorvastatin (LIPITOR) 20 MG tabletIndications:Hype rcholesterolemia Take 1 tablet (20 mg) by mouth daily 90 tablet 3 2 Active tamsulosin (FLOMAX) 0.4 MG capsule Take 0.4 mg by mouth daily 2 Active aspirin (ASA) 81 MG chewable tabletIndications:Stat us post coronary angiogram Take 1 tablet (81 mg) by mouth daily Starting tomorrow. 30 tablet 3 2 Active fentaNYL (DURAGESIC) 25 mcg/hr [address] 1 patch onto the skin every 72 hours remove old patch. Active insulin aspart (NOVOLOG VIAL) 100 UNITS/ML vial 100 Units Uses 100 units per day via insulin pump Active diphenoxylate-atropine (LOMOTIL) 2.5-0.025 MG tablet Take 2 tablets by mouth 3 times daily as needed for diarrhea Active furosemide (LASIX) 40 MG tablet Take 1 tablet (40 mg) by mouth daily as needed (for leg swelling) 3 Active sodium bicarbonate 650 MG tabletIndications:Kidn ey replaced by transplant Take 2 tablets (1,300 mg) by mouth 2 times daily 180 tablet 3 3 Active omeprazole (PRILOSEC) [address] capsuleIndications:Jennifer er replaced by transplant (H) Take 2 capsules (40 mg) by mouth daily 180 capsule 3 3 Active patiromer (VELTASSA) 8.4 g packetIndications:Hype rkalemia Take 8.4 g by mouth daily 5 packet 3 Active tacrolimus (GENERIC EQUIVALENT) 1 MG capsuleIndications:Jennifer er replaced by transplant (H) Take 3 capsules (3 mg) by mouth every 12 hours 540 capsule 3 4 Active azaTHIOprine (IMURAN) 50 MG tabletIndications:Hist ory of liver transplant (H),Status post kidney transplant,Long-term use of immunosuppressant medication Take 3 tablets (150 mg) by mouth daily 270 tablet 1 4 Active Active Problems Patient Care Coordination No te Formatting of this note migh t be different from the original. Labs [facility] in [place], [place] Fax #: [phone] Pharm - [facility]. Problem Noted Date Diagnosed Date Weakness of both lower extremities 10/11/2023 Metabolic acidosis 08/30/2022 HTN, kidney transplant related 08/30/2022 Stage 3a chronic kidney disease 03/03/2022 Lymphopenia 12/14/2021 Aftercare following organ transplant 10/03/2016 Anemia in stage 3a chronic kidney disease 2016 Hypomagnesemia 10/03/2016 Type 2 diabetes mellitus with neurologic complic ation 08/02/2016 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 transplant 08/02/2016 Immunosuppressed status (H24) 07/19/2016 Liver replaced by transplant 07/10/2016 Resolved Problems Problem Noted Date Diagnosed Date Resolved Date Aortic stenosis, severe 02/24/202208/16 Percutaneous transluminal co ronary angioplasty status 02/12/2022 08/30/2022 Status post coronary angiogram 01/22/2022 08/30/2022 Nonrheumatic aortic valve stenosis 12/14/2021 08/30/2022 Hematoma 11/15/2016 01/25/2017 Organ rejection 10/15/2016 12/14/2021 Failure to thrive in adult 10/15/2016 0 07/11/2018 Abdominal pain 10/15/2016 07/11/2018 Vitamin D deficiency 10/03/2016 019 Hyperkalemia 08/02/2016 10/03/2016 Acute kidney injury (H24) 08/02/2016 Protein-calorie malnutrition, severe (H24) 08/02/2016 07/11/2018 Physical deconditioning 08/02/201611/17 Long-term (current) use of a nticoagulants [Z79.01] 07/26/2016 08/30/2022 Diarrhea 07/19/2016 01/25/2017 Chylous peritoneal fluid 07/19/2016 Acute blood loss as cause of postoperative anemia 07/19/2016 10/03/2016 Liver transplant candidate 07/10/2016 0 07/19/2016 Hypotension 07/03/2016 07/11/2018 Volume overload 06/15/2016 10/03/2016 ROSANA (acute kidney injury) (H24) 04/29/2016 10/03/2016 Alcoholic cirrhosis of liver with ascites 03/17/2016 01/25/2017 Encounters Date Type Department Care Team Description 11/18/[address] [facility] [address] [place] [address] [phone] Freddy Craft MD 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) (Primary Dx) 10/24/[address] [facility] [address] [phone] Felipa Raya, RN Appointment 10/18/[address] [facility] [address] [phone] Mónica Suarez Prior Auth - Medication (Azathioprine 50 mg PA Not Needed) 10/18/[address] [facility] [address] [phone] Mónica Suarez Prior Auth - Medication (Tacrolimus PA Not Needed) 10/18/[address] [facility] [address] [phone] Lauire Carmen LPN 10/17/[address] [facility] [address] [phone] Felipa Raya, RN 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 transplant (Primary Dx) 10/11/2023 11:30 AM CDT Office Visit [facility] [address] [phone] Suzan Harry MD Malepati, Deepthi, MD Type 2 diabetes mellitus with diabetic neuropathy, with long-term current use of insulin (H) (Primary Dx); Status post kidney transplant; Hypomagnesemia; HTN, kidney transplant related; Immunosuppressed status (H24); 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); Stage 3a chronic kidney disease (H); 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 transplant; Aftercare following organ transplant; Weakness of both lower extremities 10/11/2023 Travel 10/05/[address] [facility] [address] [place] [phone] Felipa Raya, distributed energy systems consultant 10/03/[address] [facility] [address] [place] [phone] Malinda Alves, distributed energy systems consultant Immunosuppression Management 09/30/2023 External Order Results [facility] [address] [place] [address] Outside, Provider 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) 09/29/[address] [facility] [address] [place] [phone] Lashanda Hsieh, [facility] 09/22/[address] [facility] [address] [place] [phone] Felipa Raya, distributed energy systems consultant Provider 09/16/[address] [facility] [address] [place] [phone] Renate Oh, distributed energy systems consultant Care Coordination 09/16/[address] [facility] [address] [place] [phone] Chela Meng, BENTLEY update from Last 3 Months Immunizations Name Administration Dates Next Due COVID-19 MONOVALENT 12+ (Pfizer) 01/12/2021,06/17,06/19/2020 COVID-19 Monovalent 12+ (Pfizer 2021) 09/17/2021 Flu 65+ Years 01/10/2018 Flu, Unspecified 02/03/2013, 2,02/04/2010,2008,02/06/2008,02/27/2007,03/03/2005,1 04/25/2003,02/13/2003 Influenza (High Dose) 3 eric nt vaccine 02/05/2020,03/16/2019,01/24/2016 Influenza (IIV3) PF 01/25/2017, 6,02/03/2013,2011,01/27/2011,02/04/2010,01/14/2009,1 ,02/27/2007,02/16/2006, 005,02/24/2004,02/13/2003 Influenza Vaccine 65+ (FLUAD) 01/12/2022, 021 Influenza Vaccine >6 months,quad, PF ,01/24/2016,01/06/2015,2013,01/27/2011 Influenza Vaccine IM 18-49 Yrs, RIV3 01/06/2015, 01/09/2014 Influenza Vaccine, 6+MO IM (QUADRIVALENT W/PRESERVATIVES) 01/24/2016 Influenza, seasonal, injectable, PF 01/27/2011 Mantoux Tuberculin Skin Test 08/03/2016 Pneumo Conj 13-V (2010&after) 01/10/2018 Pneumococcal 23 valent 02/10/2016,07/24/2010 TDAP Vaccine (Boostrix) 07/31/2010 Zoster recombinant adjuvante d (SHINGRIX) 08/01/2017 Family History Medical History Relation Comments Liver Disease Cousin A1-AT, s/p LDLT Coronary Artery Disease Father Dementia Mother Lewy Body jenna ia Relation Status Comments Cousin Father Mother Social History Tobacco Use Types Packs/Day Years Used Date Smoking Tobacco: Former Cigarettes Q uit: 04/18/1985 Smokeless Tobacco: Never Tobacco Cessation:Counseling Given: Not Answered Comments:quit years ago Alcohol Use Standard Drinks/Week [...] on file Sexual Orientation Not on file Last Filed Vital Signs Vital Sign Reading Time Taken Comments Blood Pressure 105/70 10/11/2023 11:30 AM CDT Pulse 86 10/11/2023 11:30 AM CDT Temperature 36.7 ??C (98.1 ??F) 10/11/2023 11:30 AM C DT Respiratory Rate 14 03/02/2022 4:40 AM SUPERVISOR SHRIMP POND Oxygen Saturation 96% 10/11/2023 11:30 AM CDT Inhaled Oxygen Concentration - - Weight 96.3 kg (212 lb 3.2 oz) 10/11/2023 11:30 AM CDT Height 175.3 cm (5' 9) 08/30/2022 8:54 AM CDT Body Mass Index 31.34 08/30/2022 8:54 AM CDT Plan of Treatment Health Maintenance Due Date Last Done Comments ADVANCE CARE PLANNING 1950 ANNUAL REVIEW OF HM ORDERS 1952 CT COLONOGRAPHY 1952 DIABETIC FOOT EXAM 1952 FIT 1952 FLEX SIG 1952 HF ACTION PLAN 1952 sDNA (Cologuard) 1950 HEPATITIS A IMMUNIZATION (1 of 2 - Risk 2-dose series) 1971 HEPATITIS B IMMUNIZATION (1 of 3 - Risk 3-dose series) 2012 RSV VACCINE ( & 60+) (1 - 1-dose 60+ series) 2012 MEDICARE ANNUAL WELLNESS VISIT 2017 ZOSTER IMMUNIZATION (2 of 2) 09/26/2017 08/01/2017 FALL RISK ASSESSMENT 07/12/2019 07/11/2018, 05/31/19 18 MICROALBUMIN 05/17/2020 05/17/2019, 11/0 10/2016, 11/15/2016 DTAP/TDAP/TD IMMUNIZATION (2 - Td or Tdap) 07/31/2020 07/31/2010 Pneumococcal Vaccine: 65+ Years (4 of 4 - PPSV23 or PCV20) 02/09/2021 01/10/2018, 02/10/2016, 07/24/2010 EYE EXAM 10/22/2021 10/22/2020, 01/12/2018 A1C 08/24/2022 02/24/2022, 10/17, 08/11/2021, Additional history exists COVID-19 Vaccine ( season) 2023 05/31/2023, 09/17/2021, 01/12/2021, Additional history exists INFLUENZA VACCINE (#1) 2023 , 01/12/2022, 01/12/2022, Additional history exists LIPID 02/01/2024 01/31/2023, 07/18, 01/28/2021, Additional history exists BMP 03/31/2024 09/30/2023, 06/16, 04/20/2023, Additional history exists ALT 04/05/2024 04/05/2023, 01/16, 08/05/2022, Additional history exists CBC 09/29/2024 09/30/2023, 03/18, 01/31/2023, Additional history exists HEMOGLOBIN 09/29/2024 09/30/2023, 03/18, 01/31/2023, Additional history exists COLONOSCOPY 03/31/2027 03/31/2017, 03/18, 09/20/2013 COLORECTAL CANCER SCREENING 03/31/2027 TSH W/FREE T4 REFLEX Completed 07/02/2016, 03/29/2016, 03/29/2016 HEPATITIS C SCREENING Completed 05/13/2020 , 07/10/2016, 03/29/2016 URINALYSIS Completed 02/25/2022, 07/10/2021, 09/12/2019, Additional history exists LUNG CANCER SCREENING Discontinued 06/21/2022 , 06/17/2022, 01/13/2022 AORTIC ANEURYSM SCREENING (SYSTEM ASSIGNED) Completed 06/24/2022, 06/17/2022, 02/25/2022, Additional history exists PHQ-2 (once per calendar year) Completed 10/11/2023, 08/30/2022, 08/05/2022, Additional history exists HPV IMMUNIZATION Aged Out No longer e ligible based on patient's age to complete this topic MENINGITIS IMMUNIZATION Aged Out No l onger eligible based on patient's age to complete this topic RSV MONOCLONAL ANTIBODY Aged Out No l onger eligible based on patient's age to complete this topic Medical Devices Implanted Type Area Operations And Maintenance Technician Device Identifier Shelf Expiration Date Model / Serial / Lot Stent Coronary Gelacio Synergy Xd Mr Us [id number] - [id number] Implanted:Qty: 1 on 02/12/2022 at [facility] Stent Drug Eluting (GELACIO) [employer] 03/09/2023 [id number] / / [id number] Stent Coronary Gelacio Brenda Xd Mr Us [id number] - [id number] Implanted:Qty: 1 on 02/12/2022 at [facility] Stent Drug Eluting (GELACIO) [employer] 03/16/2023 [id number] / / [id number] Closure Angioseal 6fr [id number] - [id number] Implanted:Qty: 1 on 02/12/2022 at [facility] 11/15/2022 [id number] / / [id number] Closure Angioseal 6fr [id number] - [id number] Implanted:Qty: 1 on 02/12/2022 at [facility] 11/15/2022 [id number] / / [id number] Closure Angioseal 6fr 236354 - [id number] Implanted:Qty: 1 on 02/24/2022 at [facility] 09/15/2022 [id number] / / [id number] Explanted Type Area Operations And Maintenance Technician Device Identifier Shelf Expiration Date Model / Serial / Lot Stent Ureteral Soft Universa [id number] Us-518 [id number] Implanted:Qty: 1 on 07/11/2016 by Aime Vu MD at [facility] Explanted:Qty: 1 on 08/19/2016 by Aime Vu MD at [facility] Stent N/A: Ureter [employer] 02/12/2019 US-518 / / [id number] Procedures Procedure Name Priority Date/Time Associated Diagnosis Comments TACROLIMUS BY TANDEM MASS SPECTROMETRY Routine 09/30/2023 9:40 AM CDT 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) DIFFERENTIAL Routine 09/30/2023 9:40 AM CDT CBC WITH PLATELETS Routine 09/30/2023 9: 40 AM CDT 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) BASIC METABOLIC PANEL Routine 09/30/2023 9:40 AM CDT 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) HEPATIC FUNCTION PANEL Routine 04/05/2023 12:30 PM SUPERVISOR SHRIMP POND 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) LIPID PROFILE Routine 01/31/2023 8:54 AM CDT S/P TAVR (transcatheter aortic valve replacement) Coronary artery disease involving [place] coronary artery of [place] heart without angina pectoris UA MACROSCOPIC WITH REFLEX TO MICRO AND CULTURE Routine 02/25/2022 9:55 [address] [address] ABDOMEN PELVIS W/O CONTRAST STAT 02/25/2022 12:10 AM [employer]OR [employer] P[employer] HEMOGLOBIN A1C Routine 02/24/2022 9:42 [address] [address] ANGIOGRAM TAVR Routine 01/13/2022 12: 33 PM CDT Other ill-defined heart diseases Severe aortic stenosis HEPATITIS C ANTIBODY Routine 05/13/2020 8:50 AM [employer]PERVISOR SHRIMP POND ALBUMIN RANDOM URINE QUANTITATIVE Routine 05/17/2019 10:05 AM [employer]PERVISOR SHRIMP POND COLONOSCOPY Routine 03/31/2017 10:57 AM SUPERVISOR SHRIMP POND TSH STAT 07/02/2016 3:42 PM CDT from Last 3 Months or Most Recently Relevant to Health Maintenance Results * Tacrolimus by Tandem Mass Spectrometry (09/30/2023 9:40 AM CDT) Tacrolimus(FK-5 06) (External) 3.0 ng/mL NON-INTERFACE D (ONBASE SCANS) Blood BLOOD SPECIMEN / Unknown 09/30/2023 9:40 AM CDT Subhash SINGH PFT - 10/03/2023 12:33 PM CDT Verified by Rhiannon Cain on 10/03/2023. Freddy Dumont MD LAB - BLOOD ORD ERABLES SAMANTHA PFT NON-INTERFACED (ONBASE SCANS) * (ABNORMAL) Manual Differential (09/30/2023 9:40 AM CDT) % Neutrophils (External) 54.1 42.0 - 72.0 % NON-INTERFACE D (ONBASE SCANS) % Lymphocytes (External) 30.5 20 - 44 % NON-INTERFACE D (ONBASE SCANS) % Monocytes (External) 10.6 0.0 - 11.0 % NON-INTERFACE D (ONBASE SCANS) % Eosinophils (External) 4.0 0.0 - 7.0 % NON-INTERFACE D (ONBASE SCANS) % Basophils (External) 0.4 0.0 - 3.0 % NON-INTERFACE D (ONBASE SCANS) Absolute Neutrophils (External) 1.20(L) 1.7 - 7.0 K/uL NON-INTERFACE D (ONBASE SCANS) Absolute Lymphocytes (External) 0.70(L) 0.90 - 2.90 K/uL NON-INTERFACE D (ONBASE SCANS) Absolute Monocytes (External) 0.20 0.00 - 0.90 K/UL NON-INTERFACE D (ONBASE SCANS) Absolute Eosinophils (External) 0.10 0.00 - 0.50 K/uL NON-INTERFACE D (ONBASE SCANS) Absolute Basophils (External) 0.00 0.00 - 0.30 K/uL NON-INTERFACE D (ONBASE SCANS) % Immature Granulocytes (External) 0.4 % NON-INTERFACE D (ONBASE SCANS) Absolute Immature Granulocytes (External) 0.00 0.00 - 0.30 K/uL NON-INTERFACE D (ONBASE SCANS) Method (External) Auto NO N-INTERFACE D (ONBASE SCANS) Blood BLOOD SPECIMEN / Unknown 09/30/2023 9:40 AM CDT Narrative SAMANTHA PFT - 10/03/2023 12:32 PM CDT Verified by Rhiannon Cain on 10/03/2023. Abdifatah Van MD LAB - BLOOD ORDERABL ES SAMANTHA PFT NON-INTERFACED (ONBASE SCANS) * (ABNORMAL) Basic metabolic panel (09/30/2023 9:40 AM CDT) Sodium (External) 138 135 - 149 mmol/L NON-INTERFACED (ONBASE SCANS) Potassium (External) 4.1 3.6 - 5.1 mmol/L NON-INTERFACED (ONBASE SCANS) Chloride (External) 106 96 - 114 mmol/L NON-INTERFACED (ONBASE SCANS) CO2 (External) 26 20 - 32 mmol/L NON-INTERFACED (ONBASE SCANS) Anion Gap (External) 6(L) 7 - 15 mEq/L NON-INTERFACED (ONBASE SCANS) Urea Nitrogen (External) 20 7 - 30 mg/dL NON-INTERFACED (ONBASE SCANS) Creatinine (External) 1.4 0.5 - 1.5 mg/dL NON-INTERFACED (ONBASE SCANS) GFR Estimated (External) 54 ml/min NON-INTERFACED (ONBASE SCANS) Calcium (External) 8.5 8.4 - 10.6 mg/dL NON-INTERFACED (ONBASE SCANS) Glucose (External) 162(H) 60 - 115 mg/dL NON-INTERFACED (ONBASE SCANS) Blood BLOOD SPECIMEN / Unknown 09/30/2023 9:40 AM CDT Narrative SAMANTHA PFT - 10/03/2023 12:31 PM CDT Verified by Rhiannon Cain on 10/03/2023. Freddy Dumont MD LAB - BLOOD ORD ERABLES SAMANTHA PFT NON-INTERFACED (ONBASE SCANS) * (ABNORMAL) CBC with platelets (09/30/2023 9:40 AM CDT) WBC Count (External) 2.26(L) 4.50 - 11.00 K/uL NON-INTERFACE D (ONBASE SCANS) RBC Count (External) 3.41(L) 4.30 - 5.90 m/uL NON-INTERFACE D (ONBASE SCANS) Hemoglobin (External) 11.3(L) 13.5 - 17.5 gm/dL NON-INTERFACE D (ONBASE SCANS) Hematocrit (External) 32.8(L) 37.0 - 53.0 % NON-INTERFACE D (ONBASE SCANS) MCV (External) 96 80 - 100 fL NON-INTERFACE D (ONBASE SCANS) MCH (External) 33 26 - 34 ML NON- INTERFACE D (ONBASE SCANS) MCHC (External) 35 32 - 36 gm/dL NON-INTERFACE D (ONBASE SCANS) Platelet Count (External) 161 140 - 440 K/uL NON-INTERFACE D (ONBASE SCANS) RDW (External) 14.6 11.5 - 15.5 % NON-INTERFACE D (ONBASE SCANS) Blood BLOOD SPECIMEN / Unknown 09/30/2023 9:40 AM CDT Narrative BREEZE PFT - 10/03/2023 12:32 PM CDT Verified by Rhiannon Cain on 10/03/2023. Freddy Dumont MD LAB - BLOOD ORD ERABLES BREEZZita PFT NON-INTERFACED (ONBASE SCANS) * Hepatic panel (04/05/2023 12:30 PM SUPERVISOR [employer] POND) Protein Total (External) 6.3 6.0 - 8.3 g/dL NON-INTERFACED (ONBASE SCANS) Albumin (External) 3.6 3.3 - 5.0 g/dL NON-INTERFACED (ONBASE SCANS) Bilirubin Total (External) 0.4 0.1 - 1.5 mg/dL NON-INTERFACED (ONBASE SCANS) Bilirubin Direct (External) 0.0 0.0 - 0.5 mg/dL NON-INTERFACED (ONBASE SCANS) AST (External) 17 12 - 35 U/L NON-INTERFACED (ONBASE SCANS) ALT (External) 10 4 - 50 U/L NON- INTERFACED (ONBASE SCANS) Alk Phosphatase (External) 58 40 - 150 U/L NON-INTERFACED (ONBASE SCANS) Blood BLOOD SPECIMEN / Unknown 04/05/2023 12:30 PM [employer]PERVISOR [employer]RIMP POND Narrative BREEZE PFT - 04/07/2023 6:33 AM [employer]PERVISOR [employer] POND Verified by Yamil Santo on 04/07/2023. Freddy Dumont MD LAB - BLOOD ORD ERABLES SAMANTHA PFT NON-INTERFACED (ONBASE SCANS) * (ABNORMAL) Lipid Profile (01/31/2023 8:54 AM CDT) Cholesterol 104 <200 mg/dL 01/31/2023 9:30 AM CDT [facility] Triglycerides 225(H) <150 mg/dL 01/31/2023 9:30 AM CDT [facility] Direct Measure HDL 33(L) >=40 mg/dL 01/31/2023 9:30 AM CDT [facility] LDL Cholesterol Calculated 26 <=100 mg/dL 01/31/2023 9:30 AM CDT [facility] Non HDL Cholesterol 71 <130 mg/dL 01/31/2023 9:30 AM CDT [facility] Blood STRUCTURE OF LEFT UPPER LIMB / Unknown Venipuncture / Unknown 01/31/2023 8:54 AM CDT 01/31/2023 8:57 AM CDT Narrative [facility] - 01/31/2023 9:30 AM CDT Cholesterol Desirable: ??<200 mg/dL Triglycerides Normal: ??Less than 150 mg/dL Borderline High: ??150-199 mg/dL High: ??200-499 mg/dL Very High: ??Greater than or equal to 500 mg/dL Direct Measure HDL Female: ??Greater than or equal to 50 mg/dL Male: ??Greater than or equal to 40 mg/dL LDL Cholesterol Desirable: ??<100mg/dL Above Desirable: ??100-129 mg/dL Borderline High: ??130-159 mg/dL High: ??160-189 mg/dL Very High: ??>= 190 mg/dL Non HDL Cholesterol Desirable: ??130 mg/dL Above Desirable: ??130-159 mg/dL Borderline High: ??160-189 mg/dL High: ??190-219 mg/dL Very High: ??Greater than or equal to 220 mg/dL Deshawn Guevara VERIFIER OPERATOR LAB - BLOOD ORDERA BLES [facility] - [address] 1[address] [place] [address] * (ABNORMAL) UA reflex to Microscopic and Culture (02/25/2022 9:55 PM SUPERVISOR SHRIMP POND) Color Urine Yellow Colorless, Straw, Light Yellow, Yellow 02/25/2022 10:20 PM [facility] [employer] [facility] Appearance Urine Clear Clear 02/26/20 10:20 PM [facility] [employer] Glucose Urine 100(A) Negative mg/dL 02/25/2022 10:20 PM [employer] [employer] [facility] Bilirubin Urine Negative Negative 10:20 PM [facility] [employer] Ketones Urine 20(A) Negative mg/dL 02/25/2022 10:20 PM [facility] [employer] [facility] Specific C[place]man Urine 1.026 1.003 - 1.035 02/25/2022 10:20 PM [employer] [employer] P[facility] Blood Urine Negative Negative 02/25/2022 10:20 PM [employer] [employer] pH Urine 5.0 5.0 - 7.0 02/25/2022 10:20 PM [facility] [employer] [facility] Protein Albumin Urine 10(A) Negative mg/dL 02/25/2022 10:20 PM [facility] [employer] Urobilinogen Urine Normal Normal, 2.0 mg/dL 02/25/2022 10:20 PM [employer] [employer] Nitrite Urine Negative Negative 02/25/2022 10:20 PM [employer] [employer] Leukocyte Esterase Urine Negative Negative 02/25/2022 10:20 PM [employer] [employer] Mucus Urine Present(A) None Seen /LPF 02/25/2022 10:20 PM [employer] [employer] RBC Urine <1 <=2 /HPF 02/25/2022 10:20 PM [employer] WBC Urine 1 <=5 /HPF 02/25/2022 10:20 PM [employer] Squamous Epithelials Urine <1 <=1 /HPF 02/25/2022 10:20 PM [employer] Hyaline Casts Urine 4(H) <=2 /LPF 02/25/2022 10:20 PM [employer]PER[employer]OR SHR[employer] P[facility] Urine URINE SPECIMEN OBTAINED BY CLEAN CATCH PROCEDURE / Unknown Non-blood Collection / Unknown 02/25/2022 9:55 PM SUPERVISOR SHRIMP POND 02/25/2022 10:01 PM [employer]PERVISOR [employer]RIMP POND Narrative [facility] - 02/25/2022 10:20 PM SUPERVISOR [employer] POND Urine Culture not indicated Rubén Zambrano MD LAB - URINE ORDERABL ES [facility] [address] [facility], [address] [place] [address], [facility] [phone] * CT Abdomen Pelvis w/o Contrast (02/25/2022 12:10 AM SUPERVISOR SHRIMP POND) Anatomical Region Laterality Modality Abdomen/Pelvis, SUBRAD CT MINA DY, UMP CT ABDOMEN PELVIS, RAD CT Computed Tomography Impressions 02/25/2022 8:18 AM SUPERVISOR SHRIMP POND IMPRESSION: 1. 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 2. Colonic diverticulosis without evidence of acute diverticulitis. 3. No intra-abdominal findings to suggest etiology for patient's symptoms. I have personally reviewed the examination and initial interpretation and I agree with the findings. SEA WOOD MD Narrative 02/25/2022 8:18 AM SUPERVISOR SH[employer] POND EXAMINATION: CT ABDOMEN PELVIS W/O CONTRAST, 02/25/2022 12:10 AM TECHNIQUE: ??Helical CT images from the lung bases through the pubic symphysis were obtained ??without IV contrast. COMPARISON: CT 01/13/2022 and 03/26/2017 HISTORY: intractable nausea and abdominal pain in a patient with a history of Liver and kidney transplant. FINDINGS: Limited noncontrast evaluation of the abdomen. Abdomen and pelvis: Postoperative changes of liver and right iliac fossa kidney transplant. No distinct hepatic lesions. Unremarkable spleen. No adrenal nodules. Atrophic [place] kidneys with simple renal cyst in the upper pole of the left kidney. Mild perinephric stranding, slightly more present in the left with some fluid tracking along the left perirenal fat. Right iliac fossa kidney transplant, similar to prior 01/13/2022. Contrast in the collecting system and within the bladder from same day cardiac interventional study. Dilated stomach with small hiatal hernia. Unremarkable small bowel. Appendix is visualized and within normal limits. Scattered colonic diverticula without evidence of acute diverticulitis. Atherosclerotic calcification of the abdominal arteries without aneurysmal dilation. Hyperattenuating rim calcified mass superior and posterior to the bladder is unchanged from prior and likely representing focal area of resolved fat necrosis. Scattered mildly prominent para-aortic and periportal lymph nodes, normal architecture and favored reactive. Lung bases: ??Postsurgical changes of TAVR. Trace bilateral pleural effusion and dependent atelectasis. Trace physiologic pericardial fluid. Atherosclerotic calcifications of the coronary arteries. Otherwise unremarkable visualization of the heart and lungs and mediastinum. Bones and soft tissues: Fat-containing umbilical hernia. Fat-containing large left and small right inguinal hernias. Bilateral hip arthropathy with substantial streak artifact in the pelvis. Scattered degenerative changes of the visualized spine and SI joints. No acute osseous abnormalities. No suspicious bone lesions. Subcutaneous fat stranding along the left inguinal region without distinct collection, likely related to same day endovascular procedure. Procedure Note Sea Wood MD - 02/25/2022 EXAMINATION: CT ABDOMEN PELVIS W/O CONTRAST, 02/25/2022 12:10 AM TECHNIQUE: Helical CT images from the lung bases through the pubic symphysis were obtained without IV contrast. COMPARISON: CT 01/13/2022 and 03/26/2017 HISTORY: intractable nausea and abdominal pain in a patient with a history of Liver and kidney transplant. FINDINGS: Limited noncontrast evaluation of the abdomen. Abdomen and pelvis: Postoperative changes of liver and right iliac fossa kidney transplant. No distinct hepatic lesions. Unremarkable spleen. No adrenal nodules. Atrophic [place] kidneys with simple renal cyst in the upper pole of the left kidney. Mild perinephric stranding, slightly more present in the left with some fluid tracking along the left perirenal fat. Right iliac fossa kidney transplant, similar to prior 01/13/2022. Contrast in the collecting system and within the bladder from same day cardiac interventional study. Dilated stomach with small hiatal hernia. Unremarkable small bowel. Appendix is visualized and within normal limits. Scattered colonic diverticula without evidence of acute diverticulitis. Atherosclerotic calcification of the abdominal arteries without aneurysmal dilation. Hyperattenuating rim calcified mass superior and posterior to the bladder is unchanged from prior and likely representing focal area of resolved fat necrosis. Scattered mildly prominent para-aortic and periportal lymph nodes, normal architecture and favored reactive. Lung bases: Postsurgical changes of TAVR. Trace bilateral pleural effusion and dependent atelectasis. Trace physiologic pericardial fluid. Atherosclerotic calcifications of the coronary arteries. Otherwise unremarkable visualization of the heart and lungs and mediastinum. Bones and soft tissues: Fat-containing umbilical hernia. Fat-containing large left and small right inguinal hernias. Bilateral hip arthropathy with substantial streak artifact in the pelvis. Scattered degenerative changes of the visualized spine and SI joints. No acute osseous abnormalities. No suspicious bone lesions. Subcutaneous fat stranding along the left inguinal region without distinct collection, likely related to same day endovascular procedure. IMPRESSION: 1. 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 2. Colonic diverticulosis without evidence of acute diverticulitis. 3. No intra-abdominal findings to suggest etiology for patient's symptoms. I have personally reviewed the examination and initial interpretation and I agree with the findings. SEA WOOD MD Loyda Barry MD IMG CT OR DERABLES * (ABNORMAL) Hemoglobin A1c (02/24/2022 9:42 PM [employer]) Hemoglobin A1C 5.7(H) <5.7 % 02/24/2022 11:58 PM [employer] [facility] Comment: Normal <5.7% Prediabetes 5.7-6.4% ?? Diabetes 6.5% or higher Note: Adopted from ADA consensus guidelines. Blood STRUCTURE OF LEFT HAND / Unknown Venipuncture / Unknown 02/24/2022 9:42 PM [employer] 02/24/2022 9:55 PM [employer] Theresa Ayala APRN TOOL DESIGN [employer] LAB - BLOOD OR DERABLES [facility] [place] [address] [facility] [address], [address] [place] [address], [facility] [phone] * CT Angiogram TAVR (01/13/2022 12:33 PM CDT) Anatomical Region Laterality Modality Lower Extremity, UMP CT CTA Comp uted Tomography Impressions 01/13/2022 2:43 PM CDT IMPRESSION: 1. ??See below for TAVR related aortic annular and vascular measurements. 2. ??No acute aortic dissection, intramural hematoma or contained rupture noted. 3. ??Please review detailed radiology report, to follow separately, for incidental non-cardiovascular findings. FINDINGS: 1. ??Moderately calcified tricuspid aortic valve. Aortic valve calcium score is 1201. The LVOT is minimally calcified. The ascending aorta is mildly calcified, aortic arch is ??moderately calcified, the descending thoracic aorta is moderately calcified. There is moderate mitral annular calcification. 2. ??There are no adverse aortic root features, ie coronary heights are adequate and there is no significant aortic root calcification. 3. ??There are significant [place] coronary calcifications. 4. ??The arch vessel branching pattern is normal. 5. ??The suprarenal abdominal aorta is moderately calcified; infrarenal abdominal aorta is severely calcified 6. ??Widely patent origins of celiac trunk, superior mesenteric artery and inferior mesenteric artery. ??Single bilateral renal arteries with widely patent origins. 7. ??There is no acute aortic pathology, such as dissection, intramural hematoma, or contained rupture. MEASUREMENTS: Theatrical Performer dimensions of the thoracoabdominal aorta are as follows: 1. AORTIC ANNULUS MEASUREMENTS: 1. ??The average aortic annulus diameter is 25.2 mm, (long diameter is 27.7 mm and short diameter is 23.6 mm) 2. ??Aortic annulus area is 4.99 cm2 3. ??Aortic annulus perimeter is 80.7 mm 4. ??Suggested 3-cusp coaxial angle for aortic valve is (RANDHAWA 7 , CAU 12) and alternate A-P coaxial angle is (RANDHAWA 0 , CAU 3 ), these ??angles will vary depending upon the patient's body position 5. ??Aortic root angle is 53.4 6. ??Left main - Annulus distance: 12.8 mm, RCA - Annulus distance: 14.6 mm 2. LVOT MEASUREMENTS: 1. ??The average LVOT diameter (measured 4 mm below annular plane) is 24.9 mm 2. ??LVOT area is 4.86 cm2 3. ??LVOT perimeter is 80.2 mm 3. AORTA MEASUREMENTS 1. ??The aortic root at the sinuses of Valsalva: 34.6 mm x ??33.8 mm x 33.2 mm 2. ??The sinotubular junction: ??29.3 mm x 26.8 mm 3. ??Sinotubular junction height: 20.5 mm x 19.4 mm 4. ??Proximal ascending aorta: 35.6 mm x 35 mm 5. ??Distal abdominal aorta proximal to the bifurcation: 14.6 mm x 14.1 mm 6. ??Innominate artery 3 cm from ostium: 14.5 mm x 13 mm 7. ??Left common carotid artery 3 cm from ostium: 8 mm x 7.7 mm 4. ILIOFEMORAL MEASUREMENTS: RIGHT: 1. ??Right common iliac artery: 11 mm x 8.9 mm 2. ??Right external iliac artery: 8 mm x 6.8 mm 3. ??Right common femoral artery: 7.1 mm x 6.1 mm 4. ??Tortuosity: moderate 5. ??Calcification: moderate LEFT: 1. ??Left common iliac artery: 8.2 mm x ??7.1 mm 2. ??Left external iliac artery: 7.4 mm x 6.3 mm 3. ??Left common femoral artery: 7.0 mm x 5.9 mm There is significant artifact at the level of the LCFA 4. ??Tortuosity: moderate 5. ??Calcification: moderate OTHER FINDINGS: 1. ??Please review radiology review for incidental non-cardiovascular findings including lungs, abdominal organs, bone, soft tissue, nodes to follow separately PRAFUL GORDON MD Narrative 01/13/2022 2:43 PM CDT Procedure: CT ANGIOGRAM TAVR Examination Date: 01/13/2022 12:33 PM Indication: Severe aortic stenosis, Pre TAVR Ordering Provider: DESHAWN GUEVARA TECHNIQUE: ECG gated CT of the heart, aorta and nongated CT of the chest abdomen pelvis without and with IV contrast ??iopamidol (ISOVUE-370) solution 120 mL was performed per the ADDISON protocol on a Siemens Dual Source Flash scanner without incident. A noncontrast CT of the chest abdomen and pelvis was performed followed by contrast-enhanced CTA of the heart in a spiral gated mode with limited [id number] followed by gated high pitch spiral CTA of the chest, abdomen, pelvis at 120 kVP to evaluate the thoracoabdominal aorta and iliac vasculature. Scan protocol was optimized to minimize radiation exposure. The total radiation exposure was 1817 DLP and 25.4 mSv. Images were reconstructed and analyzed on a [employer] Workstation. Procedure Note Praful Bowen MD - 01/13/2022 Procedure: CT ANGIOGRAM TAVR Examination Date: 01/13/2022 12:33 PM Indication: Severe aortic stenosis, Pre TAVR Ordering Provider: DESHAWN GUEVARA TECHNIQUE: ECG gated CT of the heart, aorta and nongated CT of the chest abdomen pelvis without and with IV contrast iopamidol (ISOVUE-370) solution 120 mL was performed per the ADDISON protocol on a Siemens Dual Source Flash scanner without incident. A noncontrast CT of the chest abdomen and pelvis was performed followed by contrast-enhanced CTA of the heart in a spiral gated mode with limited [id number] followed by gated high pitch spiral CTA of the chest, abdomen, pelvis at 120 kVP to evaluate the thoracoabdominal aorta and iliac vasculature. Scan protocol was optimized to minimize radiation exposure. The total radiation exposure was 1817 DLP and 25.4 mSv. Images were reconstructed and analyzed on a [employer] Workstation. IMPRESSION: 1. See below for TAVR related aortic annular and vascular measurements. 2. No acute aortic dissection, intramural hematoma or contained rupture noted. 3. Please review detailed radiology report, to follow separately, for incidental non-cardiovascular findings. FINDINGS: 1. Moderately calcified tricuspid aortic valve. Aortic valve calcium score is 1201. The LVOT is minimally calcified. The ascending aorta is mildly calcified, aortic arch is moderately calcified, the descending thoracic aorta is moderately calcified. There is moderate mitral annular calcification. 2. There are no adverse aortic root features, ie coronary heights are adequate and there is no significant aortic root calcification. 3. There are significant [place] coronary calcifications. 4. The arch vessel branching pattern is normal. 5. The suprarenal abdominal aorta is moderately calcified; infrarenal abdominal aorta is severely calcified 6. Widely patent origins of celiac trunk, superior mesenteric artery and inferior mesenteric artery. Single bilateral renal arteries with widely patent origins. 7. There is no acute aortic pathology, such as dissection, intramural hematoma, or contained rupture. MEASUREMENTS: Theatrical Performer dimensions of the thoracoabdominal aorta are as follows: 1. AORTIC ANNULUS MEASUREMENTS: 1. The average aortic annulus diameter is 25.2 mm, (long diameter is 27.7 mm and short diameter is 23.6 mm) 2. Aortic annulus area is 4.99 cm2 3. Aortic annulus perimeter is 80.7 mm 4. Suggested 3-cusp coaxial angle for aortic valve is (RANDHAWA 7 , CAU 12) and alternate A-P coaxial angle is (RANDHAWA 0 , CAU 3 ), these angles will vary depending upon the patient's body position 5. Aortic root angle is 53.4 6. Left main - Annulus distance: 12.8 mm, RCA - Annulus distance: 14.6 mm 2. LVOT MEASUREMENTS: 1. The average LVOT diameter (measured 4 mm below annular plane) is 24.9 mm 2. LVOT area is 4.86 cm2 3. LVOT perimeter is 80.2 mm 3. AORTA MEASUREMENTS 1. The aortic root at the sinuses of Valsalva: 34.6 mm x 33.8 mm x 33.2 mm 2. The sinotubular junction: 29.3 mm x 26.8 mm 3. Sinotubular junction height: 20.5 mm x 19.4 mm 4. Proximal ascending aorta: 35.6 mm x 35 mm 5. Distal abdominal aorta proximal to the bifurcation: 14.6 mm x 14.1 mm 6. Innominate artery 3 cm from ostium: 14.5 mm x 13 mm 7. Left common carotid artery 3 cm from ostium: 8 mm x 7.7 mm 4. ILIOFEMORAL MEASUREMENTS: RIGHT: 1. Right common iliac artery: 11 mm x 8.9 mm 2. Right external iliac artery: 8 mm x 6.8 mm 3. Right common femoral artery: 7.1 mm x 6.1 mm 4. Tortuosity: moderate 5. Calcification: moderate LEFT: 1. Left common iliac artery: 8.2 mm x 7.1 mm 2. Left external iliac artery: 7.4 mm x 6.3 mm 3. Left common femoral artery: 7.0 mm x 5.9 mm There is significant artifact at the level of the LCFA 4. Tortuosity: moderate 5. Calcification: moderate OTHER FINDINGS: 1. Please review radiology review for incidental non-cardiovascular findings including lungs, abdominal organs, bone, soft tissue, nodes to follow separately PRAFUL FISHERZAK, MD Deshawn Yael Guevara VERIFIER OPERATOR IMG CT ORDERABLES * Hepatitis C antibody (05/13/2020 8:50 AM [employer]) [facility] Hepatitis C Antibody (External) Negative Negative LABDE SCAN Blood specimen (specimen) 05/13/2020 8:50 AM [employer] Narrative SAMANTHA PFT - 05/15/2020 7:27 AM [employer] Verified by Cruzito Marlow on 05/15/2020. Patient Reported LAB - BLOOD ORDERABL ES SAMANTHA PFT LABDE SCAN * Albumin Random Urine Quantitative with Creat Ratio (05/17/2019 10:05 AM [employer]) [facility] Microalbumin Urine (External) 1 mg/dl LABDE SCAN Creatinine Urine mg/dL (External) 106 mg/dl LABDE SCAN Microalbumin Urine mg/g Cr (External) 9 0 - 30 mg/g LABDE SCAN Urine specimen (specimen) 05/17/2019 10:05 AM [employer] Narrative AMNAE PFT - 05/23/2019 7:16 AM [employer] Verified by Pedrito Stallworth on 05/23/2019. Patient Reported LAB - URINE ORDERABL ES SAMANTHA PFT LABDE SCAN * COLONOSCOPY (03/31/2017 10:57 AM [employer]) [facility] COLONOSCOPY [address] [place] [address] [phone] ? Endoscopy Department Patient Name: Litozita Mora ? Procedure Date: 03/31/2017 10:57 AM ? Date of : 1950 ?Admit Type: Outpatient Age: 66 ?Gender: Male Note Status: Finalized ?Attending MD: Freddy Ballard MD Total Sedation Time: ? Procedure: ? Colonoscopy Indications: ? Clinically significant diarrhea of unexplained origin, ? Weight loss Providers: ? Freddy Ballard MD Referring MD: ? Medicines: ? Midazolam 3 mg IV, Fentanyl 150 micrograms IV Complications: ? No immediate complications. Procedure: ? Pre-Anesthesia Assessment: ? - Prior to the procedure, a History and Physical was ? performed, and patient medications and allergies were ? reviewed. The patient is competent. The risks and ? benefits of the procedure and the sedation options and ? risks were discussed with the patient. All questions ? were answered and informed consent was obtained. Patient ? identification and proposed procedure were verified by ? the physician and the nurse in the pre-procedure area in ? the procedure room. Mental Status Examination: alert and ? oriented. Airway Examination: normal oropharyngeal ? airway and neck mobility. Respiratory Examination: clear ? to auscultation. CV Examination: normal. Prophylactic ? Antibiotics: The patient does not require prophylactic ? antibiotics. Prior Anticoagulants: The patient has taken ? no previous anticoagulant or antiplatelet agents. ASA ? Grade Assessment: II - A patient with mild systemic ? disease. After reviewing the risks and benefits, the ? patient was deemed in satisfactory condition to undergo ? the procedure. The anesthesia plan was to use moderate ? sedation / analgesia (conscious sedation). Immediately ? prior to administration of medications, the patient was ? re-assessed for adequacy to receive sedatives. The heart ? rate, respiratory rate, oxygen saturations, blood ? pressure, adequacy of pulmonary ventilation, and ? response to care were monitored throughout the ? procedure. The physical status of the patient was ? re-assessed after the procedure. ? After obtaining informed consent, the colonoscope was ? passed under direct vision. Throughout the procedure, ? the patient's blood pressure, pulse, and oxygen ? saturations were monitored continuously. The Colonoscope ? was introduced through the anus and advanced to the ? terminal ileum. The colonoscopy was performed without ? difficulty. The patient tolerated the procedure well. ? The quality of the bowel preparation was good. ? Findings: ? The perianal and digital rectal examinations were normal. ? A less than 1 mm polyp was found in the cecum. The polyp was ? semi-pedunculated. The polyp was removed with a cold biopsy forceps. ? Resection and retrieval were complete. ? A 2 mm polyp was found in the transverse colon. The polyp was ? semi-sessile. The polyp was removed with a cold snare. Resection and ? retrieval were complete. ? The colon (entire examined portion) mucosa appeared normal. Several ? biopsies were obtained in the rectum, in the sigmoid colon, in the ? descending colon, in the transverse colon, in the ascending colon and in ? the cecum with cold forceps for histology. ? Multiple small-mouthed diverticula were found in the entire colon. ? The terminal ileum appeared normal. Biopsies were taken with a cold ? forceps for histology. ? Moderate Sedation: ? Moderate (conscious) sedation was administered by the endoscopy nurse ? and supervised by the endoscopist. The following parameters were ? monitored: oxygen saturation, heart rate, blood pressure, and response ? to care. Total physician intraservice time was 32 minutes. Impression: ?- One less than 1 mm polyp in the cecum, removed with a ? cold biopsy forceps. Resected and retrieved. ? - One 2 mm polyp in the transverse colon, removed with a ? cold snare. Resected and retrieved. ? - The entire examined colonic mucosa is normal. ? - The examined portion of the ileum was normal. Biopsied. ? - Several biopsies were obtained in the rectum, in the ? sigmoid colon, in the descending colon, in the ? transverse colon, in the ascending colon and in the ? cecum to rule out MMF vs CMV colitis. Recommendation: ?- Discharge patient to home. ? - Resume previous diet. ? - Resume aspirin at prior dose tomorrow. ? - Await pathology results. ? Freddy Ballard MD 03/31/2017 11:51:55 AM I was physically present for the entire viewing portion of the exam. Signature of teaching physician [id number] Ballard MD Number of Addenda: 0 Note Initiated On: 03/31/2017 10:57 AM Scope In: Scope Out: RADIOLOGY RESULTS 03/31/2017 10:5 7 AM [employer] Freddy Dumont MD PROCEDURES RADIOLOGY RESULTS * TSH (07/02/2016 3:42 PM CDT) TSH 0.95 0.40 - 4.00 mU/L [facility] Blood specimen (specimen) 07/02/2016 3:42 PM CDT 07/02/2016 4:14 PM CDT Angela Dias MD LAB - BLOOD ORDERAB LES [facility] [address] [place] [address] from Last 3 Months or Most Recently Relevant to Health Maintenance Additional Health Concerns Infection Onset Date 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/16 urine, 07/10/16 rectal swab 06/21/2016 06/21/2016 Advance Directives For more information, please contact: [phone] * Full Code (Latest Code Status on File) Date Activated Date Inactivated Comments 02/24/2022 5:04 PM 03/02/2022 11:36 AM All basic and advanced life-sustaining interventions are performed as appropriate Question Answer Comments Code status determined by: Unable to dis cuss and no AD/POLST on file; continue PREVIOUSLY ORDERED code status * Full Code Date Activated Date Inactivated Comments 02/12/2022 10:54 PM 02/13/2022 4:47 PM All basic and advanced life-sustaining interventions are performed as appropriate Question Answer Comments Code status determined by: Discussion with patie nt/ legal decision maker * Full Code Date Activated Date Inactivated Comments 11/16/2016 10:32 AM 01/22/2022 8:39 AM * Full Code Date Activated Date Inactivated Comments 11/15/2016 8:38 PM 11/16/2016 10:32 AM * Full Code Date Activated Date Inactivated Comments 10/15/2016 3:12 PM 11/15/2016 8:38 PM Care Teams Chief Merchandising Officer Relationship Specialty Start Date End Date Rubén Boyle MD PCP - General Family Practice 03/08/16 Pamela Blanco VERIFIER OPERATOR [facility] [address] [place], [place] [id number] Referring Physician 07/13/16 Pedro Segura MD [facility] [address] [place], [place] [address] Nephrology 10/03/16 Ferddy Craft MD [address] [facility] [address] [place], [place] [id number] Assigned Gastroenterology Provider 02/08/20 Deshawn Guevara NP [address] [facility] [address] [place] [address] Assigned Heart and Vascular Provider 01/09/22 Andressa Ruiz PA-C [address] [facility] [address] [place] [address] Physician Timekeeper Supervisor Endocrinology, Diabetes, and Metabolism 03/01/22 Suzan Harry MD [address] [place] [address] Nephrology 06/30/23 Yasmeen Powers MD [address] [place], [place] [address] Nephrology 10/24/23 Yasmeen Powers MD [address] [place] [address] Assigned Nephrology Provider 11/08/23
--- OUTSIDE RECORDS SUMMARY | 2023-12-15 10:04 | XMS_ITS | Referral Summary ---
Author Organization [facility] Address [address] [place] [address] Care Team Providers Care Dry Man Name Role Phone Rubén Boyle MD Primary Care Provider Pamela Blanco UMBRELLA MENDER Unavailable Pedro Segura MD Unavailable Freddy Craft MD Unavailable Deshawn Guevara UMBRELLA MENDER Unavailable Andressa Ruiz PA-C Unavailable Suzan Harry MD Unavailable [phone] Yasmeen Powers MD Unavailable Yasmeen Powers MD Unavailable [phone] Encounters Date Type Department Care Team Description 11/18/2023 Orders Only [facility] [address] [place] [phone] Freddy Craft MD 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) (Primary Dx) 10/24/2023 Telephone [facility] [address] [place] [phone] Felipa Raya, RN Appointment 10/18/2023 Telephone [facility] Blood and Marrow Transplant Program [address] [phone] Mónica Suarez Prior Auth - Medication (Azathioprine 50 mg PA Not Needed) 10/18/2023 Telephone [facility] Blood and Marrow Transplant Program [address] [phone] Mónica Suarez Prior Auth - Medication (Tacrolimus PA Not Needed) 10/18/2023 Telephone [facility] [address] [place] [phone] Laurie Carmen LPN 10/17/2023 Orders Only [facility] Transplant [address] [phone] Felipa Raya, BENTLEY 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 transplant (Primary Dx) 10/11/2023 Travel 10/11/2023 11:30 AM CDT Office Visit [facility] Transplant [address] [phone] Suzan Harry MD Malepati, Deepthi, MD Type 2 diabetes mellitus with diabetic neuropathy, with long-term current use of insulin (H) (Primary Dx); Status post kidney transplant; Hypomagnesemia; HTN, kidney transplant related; Immunosuppressed status (H24); 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); Stage 3a chronic kidney disease (H); 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 transplant; Aftercare following organ transplant; Weakness of both lower extremities 10/05/2023 Telephone [facility] [address] [place] [phone] Felipa Raya, automobile accessories installer 10/03/2023 Telephone [facility] [address] [place] [phone] Malinda Alves, automobile accessories installer Immunosuppression Management 09/30/2023 External Order Results [facility] [address] [place] [address] Outside, Provider 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) 09/29/2023 MyC Medical Advice [facility] [address] [place] [phone] Lashanda Hsieh, LIME SLAKER 09/22/2023 Telephone [facility] [address] [place] [phone] Felipa Raya, automobile accessories installer Provider 09/16/2023 Telephone [facility] [address] [place] [phone] Renate Oh, automobile accessories installer Care Coordination 09/16/2023 Telephone [facility] [address] [place] [phone] Chela Meng RN update from Last 3 Months Allergies Active Allergy Reactions Criticality Noted Date [...] (PEN NEEDLES 08/31) 31G X 8 MM [facility] For administering insulin at home QID. 7 [...] migh t be different from the original. [facility] in [place], [place] Fax #: [phone] Pharm - M [facility]. Problem Noted Date [...] Diagnosed Date Resolved Date Aortic stenosis, severe 02/24/2022 05/08/2022 Percutaneous transluminal co ronary angioplasty status 02/12/2022 [...] cirrhosis of liver with ascites 03/17/2016 01/25/2017 Immunizations Name Administration Dates Next Due COVID-19 [...] 07/31/2010 Zoster recombinant adjuvante d (SHINGRIX) 08/01/2017 Social History Tobacco Use Types Packs/Day Years [...] DT Respiratory Rate 14 03/02/2022 4:40 AM FPGA ENGINEER Oxygen Saturation 96% 10/11/2023 11:30 AM CDT Inhaled Oxygen Concentration - - Weight 96.3 kg (212 lb 3.2 oz) 10/11/2023 11:30 AM CDT Height 175.3 cm (5' 9) 08/30/2022 8:54 AM CDT Body Mass Index 31.34 08/30/2022 8:54 AM CDT Plan of Treatment Not on file Medical Devices Implanted Type Area Mortgage Closing Clerk Device Identifier Shelf Expiration Date Model / Serial / Lot Stent Coronary Gelacio Synergy Xd Mr Us [id number] - [id number] Implanted:Qty: 1 on 02/12/2022 at [facility] Stent Drug Eluting (GELACIO) [employer] 03/09/2023 [id number] / / [id number] Stent Coronary Gelacio Synergy Xd Mr Us [id number] - [id number] Implanted:Qty: 1 on 02/12/2022 at [facility] Stent Drug Eluting (GELACIO) [employer] 03/16/2023 [id number] / / [id number] Closure Angioseal 6fr [id number] - [id number] Implanted:Qty: 1 on 02/12/2022 at [facility] 11/15/2022 [id number] / / [id number] Closure Angioseal 6fr [id number] - [id number] Implanted:Qty: 1 on 02/12/2022 at [facility] 11/15/2022 [id number] / / [id number] Closure Angioseal 6fr 920060 - [id number] Implanted:Qty: 1 on 02/24/2022 at [facility] 09/15/2022 [id number] / / [id number] Explanted Type Area Mortgage Closing Clerk Device Identifier Shelf Expiration Date Model / Serial / Lot Stent Ureteral Soft Universa [id number] Us-518 [id number] Implanted:Qty: 1 on 07/11/2016 by Aime Vu MD at [facility] Explanted:Qty: 1 on 08/19/2016 by Aime Vu MD at [facility] Stent N/A: Ureter [employer] 02/12/2019 [id number] / / [id number] Procedures Procedure Name Priority Date/Time Associated Diagnosis Comments TACROLIMUS BY TANDEM MASS SPECTROMETRY Routine 09/30/2023 9:40 AM CDT 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) DIFFERENTIAL Routine 09/30/2023 9:40 AM CDT CBC WITH PLATELETS Routine 09/30/2023 9: 40 AM CDT 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) BASIC METABOLIC PANEL Routine 09/30/2023 9:40 AM CDT 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) HEPATIC FUNCTION PANEL Routine 04/05/2023 12:30 PM FPGA ENGINEER 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) LIPID PROFILE Routine 01/31/2023 8:54 AM CDT S/P TAVR (transcatheter aortic valve replacement) Coronary artery disease involving [place] coronary artery of [place] heart without angina pectoris UA MACROSCOPIC WITH REFLEX TO MICRO AND CULTURE Routine 02/25/2022 9:[address] ABDOMEN PELVIS W/O CONTRAST STAT 02/25/2022 12:10 AM FPGA ENGINEER HEMOGLOBIN A1C Routine 02/24/2022 9:[address] ANGIOGRAM TAVR Routine 01/13/2022 12: 33 PM CDT Other ill-defined heart diseases Severe aortic stenosis HEPATITIS C ANTIBODY Routine 05/13/2020 8:50 AM FPGA ENGINEER ALBUMIN RANDOM URINE QUANTITATIVE Routine 05/17/2019 10:05 AM FPGA ENGINEER COLONOSCOPY Routine 03/31/2017 10:57 AM FPGA ENGINEER TSH STAT 07/02/2016 3:42 PM CDT from Last 3 Months or Most Recently Relevant to Health Maintenance Results * Tacrolimus by Tandem Mass Spectrometry (09/30/2023 9:40 AM CDT) Pathologist [facility] Tacrolimus(FK-5 06) (External) 3.0 ng/mL NON-INTERFACE D (ONBASE SCANS) Blood BLOOD SPECIMEN / Unknown 09/30/2023 9:40 AM CDT Narrative SAMANTHA PFT - 10/03/2023 12:33 PM CDT Verified by Rhiannon Cain on 10/03/2023. Freddy Dumont MD LAB - BLOOD ORD ERABLES SAMANTHA PFT NON-INTERFACED (ONBASE SCANS) * (ABNORMAL) Manual Differential (09/30/2023 9:40 AM CDT) [facility] % Neutrophils (External) 54.1 42.0 - 72.0 [...] AM CDT Narrative BREEZE PFT - 10/03/2023 12:31 PM CDT Verified [...] ERABLES SAMANTHA PFT NON-INTERFACED (ONBASE SCANS) * Hepatic panel (04/05/2023 12:30 PM FPGA ENGINEER) Protein Total (External) 6.3 6.0 - 8.3 [...] BLOOD SPECIMEN / Unknown 04/05/2023 12:30 PM FPGA ENGINEER Narrative SAMANTHA PFT - 04/07/2023 6:33 AM FPGA ENGINEER Verified by Yamil Santo on 04/07/2023. Freddy Dumont MD LAB - BLOOD ORD ERABLES SAMANTHA PFT NON-INTERFACED (ONBASE SCANS) * (ABNORMAL) Lipid Profile (01/31/2023 8:54 AM CDT) Cholesterol 104 <200 mg/dL 01/31/2023 9:30 AM CDT [facility] Triglycerides 225(H) <150 mg/dL 01/31/2023 9:30 AM CDT [facility] Direct Measure HDL 33(L) >=40 mg/dL 01/31/2023 9:30 AM CDT [facility] LDL Cholesterol Calculated 26 <=100 mg/dL 01/31/2023 9:30 AM CDT [facility] Non HDL Cholesterol 71 <130 mg/dL 01/31/2023 9:30 AM CDT [facility] Blood STRUCTURE OF LEFT UPPER LIMB / Unknown Venipuncture / Unknown 01/31/2023 8:54 AM CDT 01/31/2023 8:57 AM CDT Narrative [facility] - 01/31/2023 9:30 [...] or equal to 220 mg/dL Deshawn Guevara NP LAB - BLOOD ORDERA BLES [facility] [address] [place] [address] 1st [place] [address] * (ABNORMAL) UA reflex to Microscopic and Culture (02/25/2022 9:55 PM FPGA ENGINEER) Color Urine Yellow Colorless, Straw, Light Yellow, Yellow 02/25/2022 10:20 PM FPGA ENGINEER [facility] Appearance Urine Clear Clear 02/26/20 10:20 PM FPGA ENGINEER [facility] Glucose Urine 100(A) Negative mg/dL 02/25/2022 10:20 PM FPGA ENGINEER [facility] Bilirubin Urine Negative Negative 10:20 PM FPGA ENGINEER [facility] Ketones Urine 20(A) Negative mg/dL 02/25/2022 10:20 PM FPGA ENGINEER [facility] Specific [place] Urine 1.026 1.003 - 1.035 02/25/2022 10:20 PM FPGA ENGINEER [facility] Blood Urine Negative Negative 02/25/2022 10:20 PM FPGA ENGINEER [facility] pH Urine 5.0 5.0 - 7.0 02/25/2022 10:20 PM FPGA ENGINEER [facility] Protein Albumin Urine 10(A) Negative mg/dL 02/25/2022 10:20 PM FPGA ENGINEER [facility] Urobilinogen Urine Normal Normal, 2.0 mg/dL 02/25/2022 10:20 PM FPGA ENGINEER [facility] Nitrite Urine Negative Negative 02/25/2022 10:20 PM FPGA ENGINEER [facility] Leukocyte Esterase Urine Negative Negative 02/25/2022 10:20 PM FPGA ENGINEER [facility] Mucus Urine Present(A) None Seen /LPF 02/25/2022 10:20 PM FPGA ENGINEER [facility] RBC Urine <1 <=2 /HPF 02/25/2022 10:20 PM FPGA ENGINEER [facility] WBC Urine 1 <=5 /HPF 02/25/2022 10:20 PM FPGA ENGINEER [facility] Squamous Epithelials Urine <1 <=1 /HPF 02/25/2022 10:20 PM FPGA ENGINEER [facility] Hyaline Casts Urine 4(H) <=2 /LPF 02/25/2022 10:20 PM FPGA ENGINEER [facility] Urine URINE SPECIMEN OBTAINED BY CLEAN CATCH PROCEDURE / Unknown Non-blood Collection / Unknown 02/25/2022 9:55 PM FPGA ENGINEER 02/25/2022 10:01 PM FPGA ENGINEER Narrative [facility] - 02/25/2022 10:20 PM FPGA ENGINEER Urine Culture not indicated Rubén Zambrano MD LAB - URINE ORDERABL ES [facility] Core Lab [address] [facility], [address] [address], [facility] [phone] * CT Abdomen Pelvis w/o Contrast (02/25/2022 12:10 AM FPGA ENGINEER) Anatomical Region Laterality Modality Abdomen/Pelvis, SUBRAD CT MINA DY, UMP CT ABDOMEN PELVIS, RAD CT Computed Tomography Impressions 02/25/2022 8:18 AM FPGA ENGINEER IMPRESSION: 1. 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 2. Colonic diverticulosis without evidence of acute diverticulitis. 3. No intra-abdominal findings to suggest etiology for patient's symptoms. I have personally reviewed the examination and initial interpretation and I agree with the findings. SEA WOOD MD Narrative 02/25/2022 8:18 AM FPGA ENGINEER EXAMINATION: CT ABDOMEN PELVIS W/O CONTRAST, 02/25/2022 [...] lesions. Unremarkable spleen. No adrenal nodules. Atrophic [place] kidneys with simple renal cyst in the [...] lesions. Unremarkable spleen. No adrenal nodules. Atrophic [place] kidneys with simple renal cyst in the [...] agree with the findings. SEA WOOD MD Vladislavyinyechukwu Marybeth Barry MD IMG CT OR DERABLES * (ABNORMAL) Hemoglobin A1c (02/24/2022 9:42 PM FPGA ENGINEER) Hemoglobin A1C 5.7(H) <5.7 % 02/24/2022 11:58 PM FPGA ENGINEER [facility] Comment: Normal <5.7% Prediabetes 5.7-6.4% ?? Diabetes 6.5% or higher Note: Adopted from ADA consensus guidelines. Blood STRUCTURE OF LEFT HAND / Unknown Venipuncture / Unknown 02/24/2022 9:42 PM FPGA ENGINEER 02/24/2022 9:55 PM FPGA ENGINEER Theresa Ayala NEWS CAMERA PERSON PROGRAM MANAGER SLP LAB - BLOOD OR DERABLES [facility] Core Lab [address] [facility], [address] [place] [address], [facility] [phone] * CT Angiogram TAVR (01/13/2022 12:33 PM CDT) Anatomical Region Laterality Modality Lower Extremity, P CT CTA Comp uted Tomography Impressions 01/13/2022 [...] aortic root calcification. 3. ??There are significant [place] coronary calcifications. 4. ??The arch vessel branching pattern is normal. 5. ??The suprarenal abdominal aorta is moderately calcified; infrarenal abdominal aorta is severely calcified 6. ??Widely patent origins of celiac trunk, superior mesenteric artery and inferior mesenteric artery. ??Single bilateral renal arteries with widely patent origins. 7. ??There is no acute aortic pathology, such as dissection, intramural hematoma, or contained rupture. MEASUREMENTS: Pressure Steamer Tender dimensions of the thoracoabdominal aorta are as [...] Severe aortic stenosis, Pre TAVR Ordering Provider: DSEHAWN GUEVARA TECHNIQUE: ECG gated CT of the [...] in a spiral gated mode with limited cbhbu-pr-pjek followed by gated high pitch spiral CTA of the chest, abdomen, pelvis at 120 kVP to evaluate the thoracoabdominal aorta and iliac vasculature. Scan protocol was optimized to minimize radiation exposure. The total radiation exposure was 1817 DLP and 25.4 mSv. Images were reconstructed and analyzed on a [employer] Workstation. Procedure Note Praful Bowen MD - [...] in a spiral gated mode with limited qyudp-xf-avgu followed by gated high pitch spiral CTA of the chest, abdomen, pelvis at 120 kVP to evaluate the thoracoabdominal aorta and iliac vasculature. Scan protocol was optimized to minimize radiation exposure. The total radiation exposure was 1817 DLP and 25.4 mSv. Images were reconstructed and analyzed on a [employer] Workstation. IMPRESSION: 1. See below for TAVR [...] aortic root calcification. 3. There are significant [place] coronary calcifications. 4. The arch vessel branching pattern is normal. 5. The suprarenal abdominal aorta is moderately calcified; infrarenal abdominal aorta is severely calcified 6. Widely patent origins of celiac trunk, superior mesenteric artery and inferior mesenteric artery. Single bilateral renal arteries with widely patent origins. 7. There is no acute aortic pathology, such as dissection, intramural hematoma, or contained rupture. MEASUREMENTS: Pressure Steamer Tender dimensions of the thoracoabdominal aorta are as [...] nodes to follow separately PRAFUL GORDON MD Deshawn Guevara UMBRELLA MENDER IMG CT ORDERABLES * Hepatitis C antibody (05/13/2020 8:50 AM FPGA ENGINEER) Hepatitis C Antibody (External) Negative Negative LABDE SCAN Blood specimen (specimen) 05/13/2020 8:50 AM FPGA ENGINEER Narrative BREEZE PFT - 05/15/2020 7:27 AM FPGA ENGINEER Verified by Cruzito Marlow on 05/15/2020. Patient Reported LAB - BLOOD ORDERABL ES BREEZE PFT LABDE SCAN * Albumin Random Urine Quantitative with Creat Ratio (05/17/2019 10:05 AM FPGA ENGINEER) Microalbumin Urine (External) 1 mg/dl LABDE SCAN Creatinine Urine mg/dL (External) 106 mg/dl LABDE SCAN Microalbumin Urine mg/g Cr (External) 9 0 - 30 mg/g LABDE SCAN Urine specimen (specimen) 05/17/2019 10:05 AM FPGA ENGINEER Narrative BREEZE PFT - 05/23/2019 7:16 AM FPGA ENGINEER Verified by Pedrito Stallworth on 05/23/2019. Patient Reported LAB - URINE ORDERABL ES BREEZE PFT LABDE SCAN * COLONOSCOPY (03/31/2017 10:57 AM FPGA ENGINEER) [address] [place] [address] [phone] ? Endoscopy Department Patient Name: Lito Mora ? Procedure Date: 03/31/2017 10:57 AM [...] of the exam. Signature of teaching physician [id number] Ballard MD Number of Addenda: 0 Note Initiated On: 03/31/2017 10:57 AM Scope In: Scope Out: RADIOLOGY RESULTS 03/31/2017 10:5 7 AM FPGA ENGINEER Freddy Dumont MD PROCEDURES RADIOLOGY RESULTS * TSH (07/02/2016 3:42 PM CDT) TSH 0.95 0.40 - 4.00 mU/L [facility] Blood specimen (specimen) 07/02/2016 3:42 PM CDT 07/02/2016 4:14 PM CDT Angela Dias MD LAB - BLOOD ORDERAB LES [facility] [address] [place] [address] from Last 3 Months or Most Recently Relevant to Health Maintenance Additional Health Concerns Infection Onset Date 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/16 urine, 07/10/16 rectal swab 06/21/2016 06/21/2016 Advance Directives For more information, please contact: [phone] * Full Code (Latest Code Status on [...] 3:12 PM 11/15/2016 8:38 PM Care Teams Dry Man Relationship Specialty Start Date End Date Rubén Boyle MD PCP - General Family Practice 03/08/16 Pamela Blanco NP [facility] [place] [address] [place] [address] Referring Physician 07/13/16 Pedro Segura MD [facility] [address] [place] [address] Nephrology 10/03/16 Freddy Craft MD [address] [facility] [place] [address] Assigned Gastroenterology Provider 02/08/20 Deshawn Guevara, GER[place] [address] [facility] [address] [place] [address] Assigned Heart and Vascular Provider 01/09/22 Andressa Ruiz PA-C [address] [facility] [address] [place] [address] Physician Doughnut Maker Endocrinology, Diabetes, and Metabolism 03/01/22 Suzan Harry MD [address] [place], [place] [address] Nephrology 06/30/23 Yasmeen Powers MD [address] [place] [address] Nephrology 10/24/23 Yasmeen Powers MD [address] [place] [address] Assigned Nephrology Provider 11/08/23
--- OUTSIDE RECORDS SUMMARY | 2023-12-15 10:04 | XMS_ITS | Encounter Summary ---
Author Organization [facility] Address [address] [place] [address] Care Team Providers Care Manager Internship Name Role Phone Rubén Boyle MD Primary Care Provider Pamela Blanco EXPORT AGENT Unavailable Pedro Segura MD Unavailable [phone] Freddy Craft MD Unavailable Abdifatah Van MD Unavailable Nicole Carranza EXPORT AGENT Unavailable [phone] Andressa Ruiz PA-C Unavailable [phone] Suzan Harry MD Unavailable [phone] Reason for Visit * Reason Onset Date Comments Prior Auth - Medication 10/18/2023 Tacrolim us PA Not Needed Encounter Details Date Type Department Care Team (Late st Contact Info) Description 10/18/2023 Telephone [facility] Blood and Marrow Transplant Program [address] [phone] Mónica Suarez Prior Auth - Medication (Tacrolimus PA Not Needed) Social History Tobacco Use Types Packs/Day Years [...] on file documented as of this encounter Miscellaneous Notes * Telephone Encounter - Mónica Suarez - 10/18/2023 11:58 AM CDT Images from the original note were not included. Prior Authorization Not Needed per Insurance Medication: TACROLIMUS ER 1 MG PO TB24 Insurance Company: Expected CoPay: $ Pharmacy Filling the Rx: Pharmacy Notified: Yes Patient Notified: Yes Medication should be billed to BCBS Part B - pharmacy was billing this to part D. Since patient had Medicare at time of transplant, transplant medications go to part B. Spoke with the pharmacy and made sure this billing was corrected. Thank you, Mónica Suarez Float Oncology/Transplant Liaison 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, 07/10/16 rectal swab 06/21/2016 06/21/2016 documented as of this encounter Care Teams Manager Internship Relationship Specialty Start Date End Date Rubén Boyle MD PCP - General Family Practice 03/08/16 Pamela Blanco NP [facility] [address] [place], [place] [address] Referring Physician 07/13/16 Pedro Segura MD [facility] [address] [place], [place] [address] Nephrology 10/03/16 Freddy Craft MD [address] [facility] [address] [place], [place] [address] Assigned Gastroenterology Provider 02/08/20 Abdifatah Van MD [address] [facility] [address] [place], [place] [address] Assigned Nephrology Provider 07/13/20 11/07/23 Nicole Carranza NP 420 [facility] [address] [place], [place] [address] Assigned Heart and Vascular Provider 01/09/22 Andressa Ruiz PA-C 420 [facility] [address] [place], [place] [address] Physician Chair Pad Maker Endocrinology, Diabetes, and Metabolism 03/01/22 Suzan Harry MD [address] [place], [place] [address] Nephrology 06/30/23 documented as of this encounter
--- OUTSIDE RECORDS SUMMARY | 2023-12-15 10:04 | XMS_ITS | Encounter Summary ---
Author Organization [facility] Address [address] [place] [address] Care Team Providers Care Biometric Screener Name Role Phone Rubén Boyle MD Primary Care Provider Pamela Blanco CLEANER AND PREPARER Unavailable [phone] Pedro Segura MD Unavailable [phone] Freddy Craft MD Unavailable Abdifatah Van MD Unavailable Nicole Carranza CLEANER AND PREPARER Unavailable [phone] Andressa Ruiz-C Unavailable Suzan Harry MD Unavailable [phone] Yasmeen Powers MD Unavailable Yasmeen Powers MD Unavailable Reason for Visit * Reason Onset Date Comments Appointment 10/24/2023 Encounter Details Date Type Department Care Team (Late st Contact Info) Description 10/24/2023 Telephone [facility] [address] [place] [address] Felipa Raya, RN Appointment Social History Tobacco Use Types Packs/Day Years [...] encounter Miscellaneous Notes * Telephone Encounter - Mae Stacy - 10/24/2023 9:55 AM CDT Health Call Center Phone Message May a detailed message be left on voicemail: yes Reason for Call: Other: Lab orders [place] I called Lito to schedule a follow up RKT visit in Apr. He is wanting to confirm that lab orders have been sent to his PCP clinic in [place]. Thank you! 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 06/21/2016 06/21/2016 documented as of this encounter Care Teams Biometric Screener Relationship Specialty Start Date End Date Rubén Boyle MD PCP - General Family Practice 03/08/16 Pamela Blanco CLEANER AND PREPARER [facility] [address] [place] [address] Referring Physician 07/13/16 Pedro Segura MD [facility] [address] [place] [address] Nephrology 10/03/16 Freddy Craft MD [address] [place] [address], [place] [address] Assigned Gastroenterology Provider 02/08/20 Abdifatah Van MD [address] [facility] [address] [place] [address] Assigned Nephrology Provider 07/13/20 11/07/23 Nicole Carranza NP 420 [facility] [address] [place] [address] Assigned Heart and Vascular Provider 01/09/22 Andressa Ruiz PA-C [address] [facility] [address] [place] [address] Physician Metallurgical Technician Endocrinology, Diabetes, and Metabolism 03/01/22 Suzan Harry MD 420 [place] [address] Nephrology 06/30/23 Yasmeen Powers MD 500 [place] [address] Nephrology 10/24/23 Yasmeen Powers MD [address] [place] [address] Assigned Nephrology Provider 11/08/23 documented as of this encounter
--- OUTSIDE RECORDS SUMMARY | 2023-12-15 10:04 | XMS_ITS | Encounter Summary ---
Author Organization [facility] Address [address] [place] [address] Care Team Providers Care Stripper And Taper Name Role Phone Rubén Boyle MD Primary Care Provider Pamela Blanco GLASS MOULD CLEANER Unavailable [phone] Pedro Segura MD Unavailable Freddy Craft MD Unavailable Abdifatah Van MD Unavailable Nicole Carranza GLASS MOULD CLEANER Unavailable [phone] Andressa Ruiz PA-C Unavailable [phone] Suzan Harry MD Unavailable [phone] Reason for Visit * Reason Onset Date Comments Prior Auth - Medication 10/18/2023 Azathiop rine 50 mg PA Not Needed Encounter Details Date Type Department Care Team (Late st Contact Info) Description 10/18/2023 Telephone [facility] [address] [address] Mónica Suarez Prior Auth - Medication (Azathioprine 50 mg PA Not Needed) Social History Tobacco Use [...] encounter Miscellaneous Notes * Telephone Encounter - Móncia Suarez - 10/18/2023 12:10 PM CDT Images from the original note were not included. Prior Authorization Not Needed per Insurance Medication: AZATHIOPRINE 50 MG PO TABS Insurance Company: Expected CoPay: $ Pharmacy Filling the Rx: Pharmacy Notified: Yes Patient Notified: No Medication should be billed to BCBS Part [...] documented as of this encounter Care Teams Stripper And Taper Relationship Specialty Start Date End Date Rubén Boyle MD PCP - General Family Practice 03/08/16 Pamela Blanco NP [facility] [address] [place] [address] Referring Physician 07/13/[address] [facility] [address] [place] [address] Nephrology 10/03/16 Freddy Craft MD [address] [facility] [address] [place] [address] Assigned Gastroenterology Provider 02/08/20 Abdifatah Van MD 717 [facility] [address] [place] [address] Assigned Nephrology Provider 07/13/20 11/07/23 Nicole Carranza NP 420 [facility] [address] [place] [address] Assigned Heart and Vascular Provider 01/09/22 Andressa Ruiz PA-C 420 [facility] 803 [place], [place] [address] Physician Resident Physician In Radiology Endocrinology, Diabetes, and Metabolism 03/01/22 Suzan Harry MD 420 [place], [place] [address] Nephrology 06/30/23 documented as of this encounter
--- OUTSIDE RECORDS SUMMARY | 2023-12-15 10:04 | XMS_ITS | Clinical Summary ---
Author Organization [facility] Address [address] [address] Phone Care Team Providers Care Event Marketing Intern Name Role Phone Rubén Boyle MD Primary Care Provider Allergies No known active allergies Medications Medication Sig Dispensed Refills Start Date End Date Status gabapentin (NEURONTIN) 600 MG tablet Take 600 mg by mouth three times a day. Active metFORMIN (GLUCOPHAGE) 1000 MG tablet Take 1,000 mg by mouth two times a day with meals. Take with food. Active lisinopril-hydrochl orothiazide (PRINZIDE, ZESTORETIC) 20-25 MG oral tablet Take 1 Tab by mouth one time a day. Active omeprazole (PRILOSEC) 20 MG delayed-release capsule Take 20 mg by mouth one time a day. Take before meals. Do not crush. Active citalopram (CELEXA) 20 MG tablet Take 20 mg by mouth one time a day. Active furosemide (LASIX) 40 MG tablet Take 40 mg by mouth two times a day. Active simvastatin (ZOCOR) 40 MG tablet Take 40 mg by mouth at bedtime. Active Homeopathic Products (LEG CRAMP COMPLEX OR) Take by mouth. Active Calcium Carbonate-Simethico ne (ROLAIDS PLUS GAS RELIEF EX ST OR) Take by mouth. Active loperamide (IMODIUM A-D) 2 MG tablet Take by mouth. Acti ve insulin lispro (HUMALOG) 100 UNIT/ML vial injection Inject 145 Units under the skin one time a day. Given via insulin pump Active HYDROcodone-acetami nophen (NORCO) 7.5-325 MG oral tablet Take 1 Tab by mouth every six hours as needed for Pain. Limit acetaminophen to 4000 mg per day from all sources. Active sildenafil citrate (VIAGRA) 100 MG tablet Take 100 mg by mouth as needed for Erectile dysfunction. 0.5 to 1 tablet as needed Take orally 30 minutes to 4 hours before sexual activity. Active aspirin 325 MG tablet Take 325 mg by mouth one time a day. Active phytonadione (MEPHYTON) 5 MG tablet Take 1 Tab by mouth one time a day. 30 Tab 1 01/24/2016 Active Active Problems Problem Noted Date Diagnosed Date Renal failure 01/22/2016 Anemia, macrocytic 01/22/2016 Diabetes 01/22/2016 Folate deficiency 01/22/2016 Resolved Problems Problem Noted Date Diagnosed Date Resolved Date Hepatic encephalopathy 01/22/201601/23 Altered mental status 01/22/20162015 Hyperkalemia 01/22/2016 01/24/2016 Hypomagnesemia 01/22/2016 01/24/2016 Immunizations Name Administration Dates Next Due Influenza Quad Preservative Free 01/24/2016,01/16 Influenza Trivalent Recombin ant Preservative Free (Flublok) 01/06/2015,01/09/2014 Influenza Unspecified Formulation 2012,01/14/2012,02/04/2010,2008,02/06/2008,02/27/2007,03/03/2005,1 04/25/2003,02/13/2003 Pneumovax 23 02/10/2016,07/24/2010 Tdap (7 years and older) 07/31/2010 Surgical History Surgery Date Site/Laterality Comments TOTAL HIP REPLACEMENT Left Medical History Medical History Date Comments Sigmoid diverticulitis Diabetic 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) Right lower quadrant abdominal pain GERD without esophagitis Type 2 diabetes mellitus (HCC) Hypermetropia, right Regular astigmatism, unspecified laterality Presbyopia NS (nuclear sclerosis), bilateral Glaucoma suspect of both eyes Osteoarthrosis Hyperlipidemia 11/27/2015 Obesity Diverticulosis of colon without hemorrhage Hypertension 10/28/2015 Major depression, single episode Colon polyps Issue of repeat prescription for medication Cataracts, bilateral Acute on chronic diastolic (congestive) heart fa ilure (HCC) 09/30/2015 Trochanteric bursitis, right hip 10/14/2015 Alcohol abuse 11/27/2015 Peripheral edema 12/06/2015 Family History Medical History Relation Comments Diabetes Other Family history. Ophthalmic Disease Other Family histor y of glaucoma and cataracts. Relation Status Comments Other Social History Tobacco Use Types Packs/Day Years Used Date Smoking Tobacco: Former Cigarettes 0.5 10 Smokeless Tobacco: Never Tobacco Cessation:Counseling Given: No Comments:Quit 08/16/2009. Alcohol Use Standard Drinks/Week Comments No 0 (1 standard drink = 0.6 oz pur e alcohol) Sex and Gender Information Value Date Recorded Sex Assigned at Not on file Gender Identity Not on file Sexual Orientation Not on file Obstetrics History Last Filed Vital Signs Vital Sign Reading Time Taken Comments Blood Pressure 111/70 01/24/2016 12:35 PM CDT Pulse 76 01/24/2016 12:35 PM CDT Temperature 36.5 ??C (97.7 ??F) 01/24/2016 1 2:35 PM CDT Respiratory Rate 16 01/24/2016 12:3 5 PM CDT Oxygen Saturation 99% 01/24/2016 12: 35 PM CDT Inhaled Oxygen Concentration - - Weight 114.9 kg (253 lb 4.9 oz) 01/22/2016 9:15 AM CDT Height 182.9 cm (6' 0.01) 01/22/2016 6:30 AM CD T Body Mass Index 34.35 01/22/2016 6:30 AM CDT Plan of Treatment Health Maintenance Due Date Last Done Comments CT Colonography 1952 Cologuard 1952 Colonoscopy 1952 Colorectal Cancer Screening 1952 FIT/FOBT 1952 Sigmoidoscopy 1952 DIABETES MICROALBUMIN Q1 YEAR (Standing Order) 1970 DIABETIC EYE EXAM 1970 Shingrix (Zoster recombinant) vaccine (Standing Order) (1 of 2) 2002 RSV Vaccination (60+ yrs) (Abrysvo/Arexvy) (1 - 1-dose 60+ series) 2012 Pneumococcal Vaccine: 65+ yrs (Standing Order) (2 of 2 - PCV) 2017 02/10/2016, 07/24/2010 TETANUS (Standing Order) 07/31/2020 07/31/2010 Influenza Vaccine Seasonal (Standing Order) (#1) 2023 01/24/2016, 01/06/2015, 01/09/2014, Additional history exists PERTUSSIS (Standing Order) Completed 07/31/2010 HPV Vaccine (Standing Order) Aged Out No longer eligible based on patient's age to complete this topic Hepatitis B Vaccine (Standing Order) Aged Out No longer eligible based on patient's age to complete this topic Advance Directives For more information, please contact: [phone] * Full Code (Latest Code Status on File) Date Activated Date Inactivated Comments 01/22/2016 8:55 AM 01/24/2016 5:42 PM Care Teams Event Marketing Intern Relationship Specialty Start Date End Date Rubén Boyle MD PCP - General Family Medicine 01/17/16
--- OUTSIDE RECORDS SUMMARY | 2023-12-15 10:05 | XMS_ITS | Encounter Summary ---
Author Organization [facility] Address [address] [place] [address] Care Team Providers Care Bioinformatics Specialist Name Role Phone Rubén Boyle MD Primary Care Provider Pamela Blanco FUNERAL HOME MANAGER Unavailable Pedro Segura MD Unavailable Freddy Craft MD Unavailable [phone] Abdifatah Van MD Unavailable Nicole Carranza FUNERAL HOME MANAGER Unavailable Andressa Ruiz-C Unavailable Rubén Gunter [facility] Unavailable Andressa Ruiz-C Unavailable [phone] Suzan Harry MD Unavailable Yasmeen Powers MD Unavailable [phone] Yasmeen Powers MD Unavailable [phone] Encounter Details Date Type Department Care Team (Late st Contact Info) Description 08/22/2023 MyC Medical Advice [facility] Transplant Clinic [address] [place] [address] Calli Hall, RN Social History Tobacco Use Types Packs/Day Years Used Date Smoking Tobacco: Former Cigarettes Q uit: 04/18/1985 Smokeless Tobacco: Never Comments:quit years ago Alcohol Use Standard Drinks/Week Comments No 0 (1 standard drink = 0.6 oz pur e alcohol) quit Dec 2015 PHQ-2 Answer Date Recorded PHQ-2 Score 0 08/30/2022 Adolescent Education Answer Date Record ed Getting School Help Needed Not on file 01/07 Sex and Gender Information Value Date Recorded Sex Assigned at Not on file Gender Identity Not on file Sexual Orientation Not on file documented as of this encounter Plan of Treatment Not on file documented as of this encounter Visit Diagnoses Not on filedocumented in this encounter Additional Health Concerns Infection Onset Date Last Indicated Resolved Time 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/16 urine, 07/10/16 rectal swab 06/21/2016 06/21/2016 documented as of this encounter Care Teams Bioinformatics Specialist Relationship Specialty Start Date End Date Rubén Boyle MD PCP - General Family Practice 03/08/16 Pamela Blanco NP [facility] [address] [place], [place] [address] Referring Physician 07/13/16 Pedro Segura MD [facility] [address] [place], [place] [address] Nephrology 10/03/16 Freddy Craft MD 516 [facility] [address] [place], [place] [address] Assigned Gastroenterology Provider 02/08/20 Abdifatah Van MD 717 [facility] [address] [place], [place] [address] Assigned Nephrology Provider 07/13/20 11/07/23 Nicole Carranza NP 420 [facility] 508 [place] [address] Assigned Heart and Vascular Provider 01/09/22 Andressa Ruiz PA-C 420 [facility] 803 [place] [address] Physician Sign Language Teacher Endocrinology, Diabetes, and Metabolism 03/01/22 Rubén Gunter [facility] [address] [place] [address] Assigned MTM Pharmacist 02/27/22 Andressa Ruiz PA-C 420 [facility] 803 [place] [address] Assigned Endocrinology Provider 03/13/22 09/07/23 Suzan Harry MD 420 [place] [address] Nephrology 06/30/23 Yasmeen Powers MD 500 [place] [address] Nephrology 10/24/23 Yasmeen Powers MD [address] [place] [address] Assigned Nephrology Provider 11/08/23 documented as of this encounter
--- OUTSIDE RECORDS SUMMARY | 2023-12-15 10:05 | XMS_ITS | Encounter Summary ---
Author Organization [facility] Address [address] [place] [address] Care Team Providers Care Gore Maker Name Role Phone Rubén Boyle MD Primary Care Provider Pamela Blanco LADLE FILLER Unavailable Pedro Segura MD Unavailable Freddy Craft MD Unavailable Abdifatah Van MD Unavailable Niocle Carranza LADLE FILLER Unavailable Andressa Ruiz-C Unavailable Suzan Harry MD Unavailable [phone] Reason for Visit * Reason Onset Date Comments Medication Request 09/09/2023 Refill Request 09/09/2023 Prior Auth. Encounter Details Date Type Department Care Team (Late st Contact Info) Description 09/09/2023 Refill [facility] [place] [address] [place] [address] Freddy Craft MD 6 [facility] [address] [place] [address] Medication Request; Refill Request (Prior Auth.) Social History Tobacco Use Types Packs/Day Years [...] Miscellaneous Notes * Telephone Encounter - Mónica Bañuelos - 09/09/2023 9:28 AM CDT Health Call Center Phone Message May a detailed message be left on voicemail: yes Reason for Call: Medication Refill Request Has the patient contacted the pharmacy for the refill? Yes Name of medication being requested: azaTHIOprine (IMURAN) 50 MG tablet & tacrolimus (GENERIC EQUIVALENT) 0.5 MG capsule Provider who prescribed the medication: Dr. Freddy Page Tim Pharmacy: [facility] [phone] Date medication is needed: MIKE Action Taken: Message routed to: [facility] Hep. Travel Screening: Not Applicable documented in this encounter Plan of Treatment Not on file documented as of this encounter Visit Diagnoses Diagnosis 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) Liver replaced by transplant History of liver transplant (H) Liver replaced by transplant Status post kidney transplant Long-term use of immunosuppressant medication Encounter for long-term (current) use of other medications documented in this encounter Additional Health Concerns Infection Onset Date Last Indicated Resolved Time 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/16 urine, 07/10/16 rectal swab 06/21/2016 06/21/2016 documented as of this encounter Care Teams Gore Maker Relationship Specialty Start Date End Date Rubén Boyle MD PCP - General Family Practice 03/08/16 Pamela Blanco NP [facility] [address] [place] [address] Referring Physician 07/13/16 Pedro Segura MD [facility] [address] [place] [address] Nephrology 10/03/16 Freddy Craft MD 516 [facility] [address] [place] [address] Assigned Gastroenterology Provider 02/08/20 Abdifatah Van MD 717 [facility] [address] [place] [address] Assigned Nephrology Provider 07/13/20 11/07/23 Nicole Carranza NP 420 [facility] [address] [place], [place] [address] Assigned Heart and Vascular Provider 01/09/22 Andressa Ruiz PA-C 420 [facility] 803 [place], [place] [address] Physician User Experience Designer Endocrinology, Diabetes, and Metabolism 03/01/22 Suzan Harry MD 420 [place], [place] [address] Nephrology 06/30/23 documented as of this encounter
--- OUTSIDE RECORDS SUMMARY | 2023-12-15 10:05 | XMS_ITS | Encounter Summary ---
Author Organization [place] Address [address] [place] [address] Care Team Providers Care Seed Buyer Name Role Phone Rubén Boyle MD Primary Care Provider Pamela Blanco ASSEMBLER LAY UPS Unavailable Pedro Segura MD Unavailable Freddy Craft MD Unavailable Abdifatah Van MD Unavailable Nicole Carranza ASSEMBLER [employer] UPS Unavailable Andressa Ruiz PA-C Unavailable Suzan Harry MD Unavailable [phone] Yasmeen Powers MD Unavailable Yasmeen Powers MD Unavailable Encounter Details Date Type Department Care Team (Late st Contact Info) Description 09/29/2023 MyC Medical Advice [facility] Transplant Clinic 9 [place] [address] Lashanda Hsieh, [facility] Social History Tobacco Use Types Packs/Day Years [...] documented as of this encounter Care Teams Seed Buyer Relationship Specialty Start Date End Date Rubén Boyle MD PCP - General Family Practice 03/08/16 Pamela Blanco NP [facility] [address] [place], [place] [address] Referring Physician 07/13/16 Pedro Segura MD [facility] [address] [place], [place] [address] Nephrology 10/03/16 Freddy Craft MD 516 [facility] [address] [place] [address] Assigned Gastroenterology Provider 02/08/20 Abdifatah Van MD 717 [facility] [address] [place] [address] Assigned Nephrology Provider 07/13/20 11/07/23 Nicole Carranza NP 420 [facility] [address] [place] [address] Assigned Heart and Vascular Provider 01/09/22 Andressa Ruiz PA-C 420 [facility] 803 [place] [address] Physician Monitoring Manager Endocrinology, Diabetes, and Metabolism 03/01/22 Suzan Harry MD 420 [place] [address] Nephrology 06/30/23 Yasmeen Powers MD 500 [place] [address] Nephrology 10/24/23 Yasmeen Powers MD 500 [place] [address] Assigned Nephrology Provider 11/08/23 documented as of this encounter
--- OUTSIDE RECORDS SUMMARY | 2023-12-15 10:05 | XMS_ITS | Encounter Summary ---
Author Organization [facility] Address [address] [place] [address] Care Team Providers Care Hall Monitor Name Role Phone Rubén Boyle MD Primary Care Provider Pamela Blanco CODING COMPLIANCE MANAGER Unavailable [phone] Pedro Segura MD Unavailable [phone] Freddy Craft MD Unavailable Abdifatah Van MD Unavailable Nicole Carranza CODING COMPLIANCE MANAGER Unavailable [phone] Andressa Ruiz PA-C Unavailable Suzan Harry MD Unavailable [phone] Yasmeen Powers MD Unavailable [phone] Reason for Visit * Reason Onset Date Comments update 09/16/2023 Encounter Details Date Type Department Care Team (Late st Contact Info) Description 09/16/[address] [facility] Transplant Clinic [address] [place] [address] Chela Meng, RN update Social History Tobacco Use Types Packs/Day Years [...] encounter Miscellaneous Notes * Telephone Encounter - Jordyn Weston - 09/16/2023 10:35 AM CDT Patient Call: General Route to IT INFRASTRUCTURE MANAGER Reason for call: Ileana Pharmacist from [facility] calling regarding patient's Tacrolimus level, she stated patient will be discharging from the hospital today. Call back needed? Yes Return Call Needed Same as documented in contacts section When to return call?: Same day: Route High Priority 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, 07/10/16 rectal swab 06/21/2016 06/21/2016 documented as of this encounter Care Teams Hall Monitor Relationship Specialty Start Date End Date Rubén Boyle MD PCP - General Family Practice 03/08/16 Pamela Blanco NP [facility] [address] [place] [address] Referring Physician 07/13/16 Pedro Segura MD [facility] [address] [place], [place] [address] Nephrology 10/03/16 Freddy Craft MD [address] [place] [address] Assigned Gastroenterology Provider 02/08/20 Abdifatah Van MD 717 [facility] [address] [place] [address] Assigned Nephrology Provider 07/13/20 11/07/23 Nicole Carranza NP 420 [facility] [address] [place] [address] Assigned Heart and Vascular Provider 01/09/22 Andressa Ruiz PA-C 420 [facility] 803 [place] [address] Physician Credentials Specialist Endocrinology, Diabetes, and Metabolism 03/01/22 Suzan Harry MD 420 [place], [place] [address] Nephrology 06/30/23 Yasmeen Powers MD 500 [place] [address] Nephrology 10/24/23 documented as of this encounter
--- OUTSIDE RECORDS SUMMARY | 2023-12-15 10:05 | XMS_ITS | Encounter Summary ---
Author Organization [facility] Address [address] [place] [address]. [place] [address] Care Team Providers Care Varitypist Name Role Phone Rubén Boyle MD Primary Care Provider Pamela Blanco PELLETIZER Unavailable [phone] Pedro Segura MD Unavailable Freddy Craft MD Unavailable Abdifatah Van MD Unavailable Nicole Carranza PELLETIZER Unavailable [phone] Andressa Ruiz-C Unavailable Suzan Harry MD Unavailable [phone] Encounter Details Date Type Department Care Team (Late st Contact Info) Description 10/17/2023 Orders Only [facility] Transplant Clinic [address] [place] [address] Felipa Raya, [place] 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 transplant (Primary Dx) Social History Tobacco Use Types [...] as of this encounter Visit Diagnoses Diagnosis 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 transplant- Primary documented in this encounter Additional Health Concerns Infection Onset Date Last Indicated Resolved Time 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/16 urine, 07/10/16 rectal swab 06/21/2016 06/21/2016 documented as of this encounter Care Teams Varitypist Relationship Specialty Start Date End Date Rubén Boyle MD PCP - General Family Practice 03/08/16 Pamela Blanco PELLETIZER [facility] [address] [place], [place] [address] Referring Physician 07/13/16 Pedro Segura MD [facility] [address] [place], [place] [address] Nephrology 10/03/16 Freddy Craft MD 516 [facility] [place], [place] [address] Assigned Gastroenterology Provider 02/08/20 Abdifatah Van MD [address] [facility] [address] [place], [place] [address] Assigned Nephrology Provider 07/13/20 11/07/23 Nicole Carranza NP 420 [facility] [address] [place], [place] [address] Assigned Heart and Vascular Provider 01/09/22 Andressa Ruiz PA-C 420 [facility] 803 [place] [address] Physician Forms Builder Endocrinology, Diabetes, and Metabolism 03/01/22 Suzan Harry MD 420 [place] [address] Nephrology 06/30/23 documented as of this encounter
--- OUTSIDE RECORDS SUMMARY | 2023-12-15 10:05 | XMS_ITS | Encounter Summary ---
Author Organization [place] Address [address] [place] [address] Care Team Providers Care Engineer Steam Name Role Phone Rubén Boyle MD Primary Care Provider Pamela Blanco MOLD MAKER PLASTIC MOLDS Unavailable Pedro Segura MD Unavailable [phone] Fredyd Craft MD Unavailable [phone] Abdifatah Van MD Unavailable Nicole Carranza MOLD MAKER PLASTIC MOLDS Unavailable [phone] Andressa Ruiz-C Unavailable Suzan Harry MD Unavailable [phone] Reason for Visit * Reason Onset Date Comments Transplant Provider 09/22/2023 Encounter Details Date Type Department Care Team (Late st Contact Info) Description 09/22/2023 Telephone [facility] [address] [place] [address] Felipa Raya, floor layer tile Provider Social History Tobacco Use Types Packs/Day Years [...] encounter Miscellaneous Notes * Telephone Encounter - Chela Meng RN - 09/28/2023 12:37 PM CDT Last tacrolimus level from 09/20 was 2.1, timing unknown. Did not get follow up tacrolimus level drawn on 09/25 according to care everywhere. Increase tacrolimus dose back to 2 mg BID and recheck level on Friday 09/29. Call to Lito to increase tacrolimus dose to 2 mg BID and get labs on Tuesday. He will call his lab to make an appointment. He will let [facility] know if they do not have the lab orders that were faxed by kidney coordinator last week. * Telephone Encounter - Emily Marcial RN - 09/23/2023 8:34 AM CDT Spoke to Dr. Caldwell. Pt was admitted on 09/21/23 for weakness. Tacrolimus level was drawn 09/21/23 evening at 9:00pm (unsurewhat time pt had taken tacrolimus that morning but could be a good 12 hour trough). They state pt is currently on low dose of 0.5mg twice daily and they are unsure what to discharge him on for dosing. Chart reviewed. Tacrolimus level followed by primary liver team. Per documentation they adjusted his tacrolimus dose down from 2mg BID to 0.5mg BID on 09/09/23 due to elevated level on fluconazole. Repeat level was 5.7 on 09/17/23 and pt was supposed to call when the fluconazole was completed. It appears pt completed fluconazole around 09/18/23 but hospital is not sure exactly when. They state he has not been on it since admission. PLAN I recommended pt have labs completed at his local [facility] on Tuesday09/26/23 including atacrolimus level with good 12 hour trough and they will provide this instruction to him. I will send orders. He will be discharged on 0.5mg BID and I anticipate his level getting too low on this dosing due to no longer on fluconazole. Will route encounter to primary liver team to please keep an eye out for tacrolimus results today in care everywhere in case dosing needs to be adjusted right away. Provider also stated pt is confused and team should follow up with him on Tuesday to ensure he gets his labs. Will route this info to primary liver team. * Telephone Encounter - Jordyn Weston - 09/22/2023 3:[address] Lackey from [facility] returning Coordinator's call, no other details was provided * Telephone Encounter - Pamela Winn RN - 09/22/2023 3:[address] Gonzales, no answer busy. * Telephone Encounter - Mely Shirley - 09/22/2023 1:06 PM CDT Please call Dr. Hi, [facility] cell# [phone] Lito is going to be Discharged today and Dr. Mehta wanted to discuss his IS medications. 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, 07/10/16 rectal swab 06/21/2016 06/21/2016 documented as of this encounter Care Teams Engineer Steam Relationship Specialty Start Date End Date Ruébn Boyle MD PCP - General Family Practice 03/08/16 Pamela Blanco MOLD MAKER PLASTIC MOLDS [facility] [address] [place] [address] Referring Physician 07/13/16 Pedro Segura MD [facility] [address] [place] [address] Nephrology 10/03/16 Freddy Craft MD [address] [facility] [address] [place], [place] [id number] Assigned Gastroenterology Provider 02/08/20 Abdifatah Van MD [address] [place], [place] [address] Assigned Nephrology Provider 07/13/20 11/07/23 Nicole Carranza NP [address] [facility] [address] [place] [address] Assigned Heart and Vascular Provider 01/09/22 Andressa Ruiz PA-C [address] [facility] [address] [place], [place] [address] Physician Piano Case And Bench Assembler Endocrinology, Diabetes, and Metabolism 03/01/22 Suzan Harry MD [address] [place], [place] [address] Nephrology 06/30/23 documented as of this encounter
--- OUTSIDE RECORDS SUMMARY | 2023-12-15 10:05 | XMS_ITS | Encounter Summary ---
Author Organization [facility] Address [address] [place] [address] Care Team Providers Care Boiler Control Room Operator Name Role Phone Rubén Boyle MD Primary Care Provider Pamela Blanco PRESIDENT AND CEO Unavailable Pedro Segura MD Unavailable [phone] Freddy Craft MD Unavailable [phone] Abdifatah Van MD Unavailable Nicole Carranza PRESIDENT AND CEO Unavailable Andressa RuizC Unavailable [facility] Unavailable Andressa Ruiz-C Unavailable [phone] Suzan Harry MD Unavailable Yasmeen Powers MD Unavailable Yasmeen Powers MD Unavailable [phone] Encounter Details Date Type Department Care Team (Late st Contact Info) Description 04/20/2023 External Order Results [facility] [address] [place] [address] Outside, Provider Social History Tobacco Use Types Packs/Day [...] on file documented as of this encounter Procedures Procedure Name Priority Date/Time Associated Diagnosis Comments TACROLIMUS BY TANDEM MASS SPECTROMETRY Routine 04/20/2023 10:05 AM OPERATIONS BOARDMAN documented in this encounter Results * Tacrolimus by Tandem Mass Spectrometry (04/20/2023 10:05 AM OPERATIONS BOARDMAN) Tacrolimus(FK-5 06) (External) 9.0 5.0 - 15.0 ng/mL NON-INTERFACED (ONBASE SCANS) Blood BLOOD SPECIMEN / Unknown 04/20/2023 10:05 AM OPERATIONS BOARDMAN Narrative SAMANTHA PFT - 04/25/2023 9:44 AM OPERATIONS BOARDMAN Verified by Pedrito Stallworth on 04/25/2023. 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 06/21/2016 06/21/2016 documented as of this encounter Care Teams Boiler Control Room Operator Relationship Specialty Start Date End Date Rubén Boyle MD PCP - General Family Practice 03/08/16 Pamela Blanco NP [facility] [address] [place] [address] Referring Physician 07/13/16 Pedro Seguar MD [facility] [address] [place] [address] Nephrology 10/03/16 Freddy Craft MD [address] [facility] [place], [place] [address] Assigned Gastroenterology Provider 02/08/20 Abdifatah Van MD 7[address] [facility] [address] [place] [address] Assigned Nephrology Provider 07/13/20 11/07/23 Nicole Carranza NP 420 [facility] 508 [place], [place] [address] Assigned Heart and Vascular Provider 01/09/22 Andressa Ruiz PA-C 420 [facility] 803 [place], [place] [address] Physician Attractions Associate Endocrinology, Diabetes, and Metabolism 03/01/22 [facility] [address] [place], [place] [address] Assigned MTM Pharmacist 02/27/22 Andressa Ruiz PA-C 420 [facility] [address]03 [place], [place] [address] Assigned Endocrinology Provider 03/13/22 09/07/23 Suzan Harry MD [address] [place], [place] [id number] Nephrology 06/30/23 Yasmeen Powers MD [address] [place], [place] [address] Nephrology 10/24/23 Yasmeen Powers MD [address] [place], [place] [address] Assigned Nephrology Provider 11/08/23 documented as of this encounter
--- OUTSIDE RECORDS SUMMARY | 2023-12-15 10:05 | XMS_ITS | Encounter Summary ---
Author Organization [facility] Address [address] [place] [address] Care Team Providers Care Studio Operation Engineer Name Role Phone Rubén Boyle MD Primary Care Provider Pamela Blanco CHEF CONCIERGE Unavailable Pedro Segura MD Unavailable Freddy Craft MD Unavailable [phone] Abdifatah Van MD Unavailable Nicole Carranza CHEF CONCIERGE Unavailable Andressa RuizC Unavailable Rubén [facility] Unavailable Andressa Ruiz-C Unavailable Suzan Harry MD Unavailable [phone] Yasmeen Powers MD Unavailable Yasmeen Powers MD Unavailable [phone] Encounter Details Date Type Department Care Team (Late st Contact Info) Description 04/07/2023 External Order Results [facility] [address] [place] [address] Outside, Provider 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) Social History Tobacco Use Types Packs/Day Years [...] Procedure Name Priority Date/Time Associated Diagnosis Comments BASIC METABOLIC PANEL Routine 04/07/2023 9:30 AM BOX LINING MACHINE FEEDER 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) documented in this encounter Results * (ABNORMAL) Basic metabolic panel (04/07/2023 9:30 AM BOX LINING MACHINE FEEDER) Sodium (External) 137 135 - 149 mmol/L NON-INTERFACED (ONBASE SCANS) Potassium (External) 5.9(H) 3.6 - 5.1 mmol/L NON-INTERFACED (ONBASE SCANS) Chloride (External) 107 96 - 114 mmol/L NON-INTERFACED (ONBASE SCANS) CO2 (External) 22 20 - 32 mmol/L NON-INTERFACED (ONBASE SCANS) Anion Gap (External) 8 7 - 15 mEq/L NON-INTERFACED (ONBASE SCANS) Urea Nitrogen (External) 35(H) 7 - 30 mg/dL NON-INTERFACED (ONBASE SCANS) Creatinine (External) 2.0(H) 0.5 - 1.5 mg/dL NON-INTERFACED (ONBASE SCANS) GFR Estimated (External) 35 ml/min NON-INTERFACED (ONBASE SCANS) Calcium (External) 8.4 8.4 - 10.6 mg/dL NON-INTERFACED (ONBASE SCANS) Glucose (External) 136(H) 60 - 115 mg/dL NON-INTERFACED (ONBASE SCANS) Blood BLOOD SPECIMEN / Unknown 04/07/2023 9:30 AM BOX LINING MACHINE FEEDER Narrative SAMANTHA PFT - 04/08/2023 9:30 AM BOX LINING MACHINE FEEDER Verified by Pedrito Stallworth on 04/08/2023. 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, 07/10/16 rectal swab 06/21/2016 06/21/2016 documented as of this encounter Care Teams Studio Operation Engineer Relationship Specialty Start Date End Date Rubén Boyle MD PCP - General Family Practice 03/08/16 Pamela Blanco, CHEF CONCIERGE [facility] [address] [place], [place] [address] Referring Physician 07/13/16 Pedro Segura MD [facility] [address] [place], [place] [address] Nephrology 10/03/16 Freddy Craft MD [address] [facility] [place], [place] [address] Assigned Gastroenterology Provider 02/08/20 Abdifatah Van MD [address] [facility] [address] [place], [place] [address] Assigned Nephrology Provider 07/13/20 11/07/23 Nicole Carranza NP [address] [facility] [address] [place], [place] [address] Assigned Heart and Vascular Provider 01/09/22 Andressa Ruiz PA-C 420 [facility] 803 [place] [address] Physician Chute Worker Endocrinology, Diabetes, and Metabolism 03/01/22 Rubén [facility] [address] [place] [address] Assigned MTM Pharmacist 02/27/22 Andressa Ruiz PA-C 420 [facility] 803 [place] [address] Assigned Endocrinology Provider 03/13/22 09/07/23 Suzan Harry MD 420 [place] [address] Nephrology 06/30/23 Yasmeen Powers MD 500 [place] [address] Nephrology 10/24/23 Yasmeen Poewrs MD 500 [place] [address] Assigned Nephrology Provider 11/08/23 documented as of this encounter
--- OUTSIDE RECORDS SUMMARY | 2023-12-15 10:05 | XMS_ITS | Encounter Summary ---
Author Organization [place] Address [address] [place] [address]. [place] [address] Care Team Providers Care Industrial Machine Assembler Name Role Phone Rubén Boyle MD Primary Care Provider Pamela Blanco CLOCKMAKER APPRENTICE Unavailable Pedro Segura MD Unavailable Freddy Craft MD Unavailable [phone] Abdifatah Van MD Unavailable Nicole Carranza CLOCKMAKER APPRENTICE Unavailable Andressa Ruiz-C Unavailable [phone] Suzan Harry MD Unavailable [phone] Yasmeen Powers MD Unavailable [phone] Yasmeen Powers MD Unavailable Encounter Details Date Type Department Care Team (Late st Contact Info) Description 10/18/2023 Telephone [facility] [address] [place] [address] Laurie Carmen LPN Social History Tobacco Use Types Packs/Day Years [...] encounter Miscellaneous Notes * Telephone Encounter - Laurie Carmen LPN - 10/18/2023 10:53 AM CDT Spoke to Alec, the pharmacist who will call medicare to provide dates that they require in order to submit PA. Alec will call financial writer back. 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 [address] [place] [address] Referring Physician 07/13/[address] [facility] [address] [place] [address] Nephrology 10/03/16 Freddy Craft MD [address] [address] Assigned Gastroenterology Provider 02/08/20 Abdifatah Van MD [address] [facility] [address] [place] [address] Assigned Nephrology Provider 07/13/20 11/07/23 Nicole Carranza NP 420 [facility] [address] [place] [address] Assigned Heart and Vascular Provider 01/09/22 Andressa Ruiz PA-C 420 [facility] 803 [place] [address] Physician Manager Staffing Endocrinology, Diabetes, and Metabolism 03/01/22 Suzan Harry MD 420 [place] [address] Nephrology 06/30/23 Yasmeen Powers MD 500 [place] [address] Nephrology 10/24/23 Yasmeen Powers MD [address] [place] [address] Assigned Nephrology Provider 11/08/23 documented as of this encounter
--- OUTSIDE RECORDS SUMMARY | 2023-12-15 10:05 | XMS_ITS | Encounter Summary ---
Author Organization [facility] Address [address] [place] [address] Care Team Providers Care Academic Affairs Director Name Role Phone Rubén Boyle MD Primary Care Provider Pamela Blanco ELECTRIC CUTTER OPERATOR Unavailable [phone] Pedro Segura MD Unavailable [phone] Freddy Craft MD Unavailable [phone] Abdifatah Van MD Unavailable Nicole Carranza ELECTRIC CUTTER OPERATOR Unavailable [phone] Andressa Ruiz PA-C Unavailable Suzan Harry MD Unavailable [phone] Reason for Visit * Reason Onset Date Comments Prior Auth - Medication 09/09/2023 Tacrolim us- pa not needed Encounter Details Date Type Department Care Team (Late st Contact Info) Description 09/09/2023 Telephone [facility] Blood and Marrow Transplant Program [address] [address] Malinda Martino Prior Auth - Medication (Tacrolimus- pa not needed ) Social History Tobacco Use Types Packs/Day Years [...] encounter Miscellaneous Notes * Telephone Encounter - Malinda Martino - 09/09/2023 10:14 AM CDT Images from the original note were not included. Prior Authorization Not Needed per Insurance Medication: TACROLIMUS (GENERIC EQUIVALENT) 0.5 MG PO CAPS Insurance Company: [employer] b Expected CoPay: Pharmacy Filling the Rx[facility] Notified: yes Patient Notified: no Medication should be billed to [employer] [facility] pharmacy was billing this to [facility] Since patient had medicare at time of transplant, transplant medications go to [facility] B 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 [address] [place] [address] Assigned Gastroenterology Provider 02/08/20 Abdifatah Van MD [address] [facility] [address] [place] [address] Assigned Nephrology Provider 07/13/20 11/07/23 Nicole Carranza NP 420 [facility] [address] [place], [place] [address] Assigned Heart and Vascular Provider 01/09/22 Andressa Ruiz PA-C 420 [facility] [address] [place], [place] [address] Physician Xerox Machine Operator Endocrinology, Diabetes, and Metabolism 03/01/22 Suzan Harry MD 420 [place], [place] [address] Nephrology 06/30/23 documented as of this encounter
--- OUTSIDE RECORDS SUMMARY | 2023-12-15 10:05 | XMS_ITS | Encounter Summary ---
Author Organization [place] Address [address] [place] [address] Care Team Providers Care Store Manager Name Role Phone Rubén Boyle MD Primary Care Provider Pamela Blanco DAIRY EQUIPMENT MECHANIC Unavailable [phone] Pedro Segura MD Unavailable [phone] Freddy Craft MD Unavailable Abdifatah Van MD Unavailable Nicole Carranza DAIRY EQUIPMENT MECHANIC Unavailable [phone] Andressa Ruiz-C Unavailable Suzan Harry MD Unavailable [phone] Reason for Visit * Reason Onset Date Comments Transplant Immunosuppression Management 10/03/19 Encounter Details Date Type Department Care Team (Late st Contact Info) Description 10/03/[address] [facility] [address] [place] [address] Malinda Alves RN Transplant Immunosuppression Management Social History Tobacco Use Types Packs/Day Years [...] Miscellaneous Notes * Telephone Encounter - Malinda Alves RN - 10/03/2023 12:56 PM CDT ISSUE: Tacrolimus IR level 3 on 09/30/23, goal 4-6, dose 2 mg BID. PLAN: Call Patient and confirm this was an accurate 12-hour trough. Verify Tacrolimus IR dose 2 mg BID. Confirm no new medications or illness. Confirm no missed doses. If accurate trough and accurate dose, increase Tacrolimus IR dose to 3 mg BID Repeat labs in 1 months. Malinda Alves RN OUTCOME: Spoke with Patient, they confirm accurate trough level and current dose 2 mg BID. Patient confirmed dose change to 3 mg BID. Patient agreed to repeat labs in 1 months. Orders sent to preferred pharmacy for dose change and lab for repeat labs. Patient voiced understanding of plan. 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 [address] [place] [address] Nephrology 10/03/16 Freddy Craft MD [address] [facility] [address] [place], [place] [address] Assigned Gastroenterology Provider 02/08/20 Abdifatah Van MD [address]17 [facility] [address] [place], [place] [address] Assigned Nephrology Provider 07/13/20 11/07/23 Nicole Carranza NP 420 [facility] 508 [place], [place] [address] Assigned Heart and Vascular Provider 01/09/22 Andressa Ruiz PA-C 420 [facility] 803 [place], [place] [address] Physician Pinion And Wheel Truer Endocrinology, Diabetes, and Metabolism 03/01/22 Suzan Harry MD 420 [place], [place] [address] Nephrology 06/30/23 documented as of this encounter
--- OUTSIDE RECORDS SUMMARY | 2023-12-15 10:05 | XMS_ITS | Encounter Summary ---
Author Organization [place] Address [address] [place] [address] Care Team Providers Care Capacitor Repairer Name Role Phone Rubén Boyle MD Primary Care Provider [phone] Pamela Blanco TANK BOTTOM ASSEMBLER Unavailable Pedro Segura MD Unavailable Freddy Craft MD Unavailable [phone] Abdifatah Van MD Unavailable Nicole Carranza TANK BOTTOM ASSEMBLER Unavailable [phone] Andressa Ruiz-C Unavailable Suzan Harry MD Unavailable [phone] Reason for Visit * Reason Comments RECHECK K/P POST RETURN TXP NEPH - Return, Post Kidney Transplant Follow up, scheduled with patient Encounter Details Date Type Department Care Team (Late st Contact Info) Description 10/11/2023 11:30 AM CDT Office Visit [facility] [address] [place] [address] Suzan Harry MD [address] [place] [address] Yasmeen Powers MD [address] [place] [address] Type 2 diabetes mellitus with diabetic neuropathy, with long-term current use of insulin (H) (Primary Dx); Status post kidney transplant; Hypomagnesemia; HTN, kidney transplant related; Immunosuppressed status (H24); 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); Stage 3a chronic kidney disease (H); 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 transplant; Aftercare following organ transplant; Weakness of both lower extremities Social History Tobacco Use Types Packs/Day Years [...] on file documented as of this encounter Last Filed Vital Signs Vital Sign Reading Time Taken Comments Blood Pressure 105/70 10/11/2023 11:30 AM CDT Pulse 86 10/11/2023 11:30 AM CDT Temperature 36.7 ??C (98.1 ??F) 10/11/2023 11:30 AM C DT Respiratory Rate - - Oxygen Saturation 96% 10/11/2023 11:30 AM CDT Inhaled Oxygen Concentration - - Weight 96.3 kg (212 lb 3.2 oz) 10/11/2023 11:30 AM CDT Height - - Body Mass Index 31.34 08/30/2022 8:54 AM CDT documented in this encounter Progress Notes * Yasmeen Powers MD - 10/11/2023 11:30 AM CDT Images from the original note were not included. TRANSPLANT NEPHROLOGY CLINIC VISIT Assessment & Plan # DDKT (SLK): CKD Stage 3a - Stable - Baseline Creatinine: ~ 1.3-1.6 - Proteinuria: Normal (<0.2 grams) - DSA Hx: Moderate DSA (0991-6460 mfi) to DR51 - Last cPRA: Not resulted - BK Viremia: No - Kidney Tx Biopsy Hx: Jul 29, 2016; Result: ATI, mild arterio and mild to moderate arteriolosclerosis. Feb 22, 2017; Result: severe chronic tubulointerstitial changes, moderate to severe arterio and mildarteriolosclerosis -Labs q3 months # Liver Tx (SLK): Stable. Managed by transplant hepatology. # Immunosuppression: Tacrolimus immediate release (goal 4-6) and Azathioprine (dose 150 mg daily) - Induction with Recent Transplant: Not known due to time from transplant - Continue with intensive monitoring of immunosuppression for efficacy and toxicity. - Historical Changes in Immunosuppression: None - Changes: No # Infection Prevention: - PJP: None - CMV IgG Ab High Risk Discordance (D+/R-): No - EBV IgG Ab High Risk Discordance (D+/R-): No # Hypertension: Hypotensive; Goal BP: < 140/90 - Changes: No # Diabetes: Controlled (HbA1c <7%) Last HbA1c: 5.3% # Anemia in Chronic Renal Disease: Hgb: Stable CHINEDU: No - Iron studies: Not checked recently # Mineral Bone Disorder: - Secondary renal hyperparathyroidism; PTH level: Not checked recently On treatment: None - Vitamin D; level: Not checked recently, but was normal last check On supplement: No - Calcium; level: Normal On supplement: No - Phosphorus; level: Not checked recently, but was normal last check On supplement: No # Electrolytes: - Potassium; level: Normal On supplement: No - Magnesium; level: Not checked recently, but was low last check On supplement: No - Bicarbonate; level: Not checked recently, but was normal last check On supplement: No - Sodium; level: Normal # Other Significant PMH: - Aortic stenosis: -S/p TAVR 02/24/22. On ASA 81mg daily. Clopidogrel stopped in 07/2022 - R foot osteomyelitis: -S/p R 2nd toe amputation 09/21/21 w/ clean margins - Hypercholesterolemia: -Continue atorvastatin 20mg at bedtime. - Gastritis: -Admitted to OSH 06/19-06/23/22 due to coffee ground emesis and abdominal pin. EGD showed mild gastritis, Bobo ulcers, no active bleeding. Plan for 8 weeks of BID PPI (has completed 8 weeks at this point) Decrease omeprazole to 40mg daily - Leukopenia: Stable ~2.5-3, ANC >1000 - Acute on chronic LE weakness, no other neurological abnormalities found,. Had CT scan in june 2022 with mild degenerative changes, no pain associated. Will refer to PT eval and management. # Skin Cancer Risk: - Discussed sun protection and recommend regular follow up with Dermatology. # Transplant History: Etiology of Kidney Failure: Hepatorenal syndrome (HRS) Tx: DDKT (SLK) and Liver Tx (SLK) Transplant: 07/11/2016 (Kidney), 07/10/2016 (Liver) Significant transplant-related complications: None Transplant Office Assessment and plan was discussed with the patient and he voiced his understanding and agreement. Return visit: Return in about 6 months (around 04/11/2024). Yasmeen Powers MD The longitudinal plan of care for the diagnosis(es)/condition(s) as documented were addressed during this visit. Due to the added complexity in care, I will continue to support Lito in the subsequent management and with ongoing continuity of care. Chief Complaint Mr. Mora is a 73 year old here for kidney transplant and immunosuppression management. History of Present Illness Mr. Mora reports feeling stable overall. C/o acute on chronic weakness in his LE, right > left. Also had 2 falls this week combined with mechanical falls. He is still moving around his home. Have sensory issues from his diabetes. Denied any pain in his LE or worsening back pain, no urinary or stool incontinence. Since last clinic visit: Hospitalizations: No, but had couple ER visits for weakness. Initial work up was negative, so he was discharged. 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 30 tablet 3 atorvastatin (LIPITOR) 20 MG tablet Take 1 tablet (20 mg) by mouth daily 90 tablet 3 Cholecalciferol 100 MCG (4000 UT) CAPS Take 1 capsule by mouth daily 90 capsule 3 citalopram (CELEXA) 40 MG tablet Take 40 mg by mouth daily Prescribed by pcp 60 tablet diphenoxylate-atropine (LOMOTIL) 2.5-0.025 MG tablet Take 2 tablets by mouth 3 times daily as needed for diarrhea furosemide (LASIX) 40 MG tablet Take 1 tablet (40 mg) by mouth daily as needed (for leg swelling) gabapentin (NEURONTIN) 600 MG tablet Take 600 mg by mouth 2 times daily insulin aspart (NOVOLOG VIAL) 100 UNITS/ML vial 100 Units Uses 100 units per day via insulin pump Insulin Pen Needle (PEN NEEDLES 08/31) 31G X 8 MM [facility] For administering insulin at home QID. multivitamin, therapeutic (THERA-VIT) TABS tablet Take 1 tablet by mouth daily 30 tablet 3 omeprazole (PRILOSEC) [address] capsule Take 2 capsules (40 mg) by mouth daily 180 capsule 3 oxyCODONE (ROXICODONE) 5 MG IR tablet Take 2.5-5 mg by mouth every 6 hours as needed patiromer (VELTASSA) 8.4 g packet Take 8.4 g by mouth daily 5 packet 0 sodium bicarbonate 650 MG tablet Take 2 tablets (1,300 mg) by mouth 2 times daily 180 tablet 3 tacrolimus (GENERIC EQUIVALENT) 1 MG capsule Take 3 capsules (3 mg) by mouth every 12 hours 540 capsule 3 tamsulosin (FLOMAX) 0.4 MG capsule Take 0.4 mg by mouth daily azaTHIOprine (IMURAN) 50 MG tablet Take 3 tablets (150 mg) by mouth daily (Patient not taking: Reported on 10/11/2023) 270 tablet 1 doxazosin (CARDURA) 2 MG tablet Take 2 tablets (4 mg) by mouth At Bedtime (Patient not taking: Reported on 10/11/2023) fentaNYL (DURAGESIC) 25 mcg/hr [address] 1 patch onto the skin every 72 hours remove old patch. (Patient not taking: Reported on 10/11/2023) ferrous sulfate (FE TABS) 325 (65 Fe) MG EC tablet Take 1 tablet (325 mg) by mouth daily (Patient not taking: Reported on 10/11/2023) 90 tablet 3 No current facility-administered medications for this visit. There are no discontinued medications. Physical Exam Vital Signs: BP 105/70 (BP Location: Right arm, Patient Position: Sitting, Cuff Size: Adult Regular) Pulse 86 Temp 98.1 ??F (36.7 ??C) (Oral) Wt 96.3 kg (212 lb 3.2 oz) SpO2 96% BMI 31.34 kg/m?? GENERAL APPEARANCE: alert and no distress EYES: eyes grossly normal to inspection HENT: normal cephalic/atraumatic RESP: lungs clear to auscultation - no rales, rhonchi or wheezes CV: regular rhythm, normal rate, no rub, no murmur EDEMA: no LE edema bilaterally ABDOMEN: soft, nondistended, nontender, bowel sounds normal MS: extremities normal - no gross deformities noted, no evidence of inflammation in joints, no muscle tenderness SKIN: no rash NEURO: mentation intact and speech normal PSYCH: mentation appears normal and affect normal/bright [place] KIDNEY: normal Data Latest Ref Rng & Units 09/30/2023 9:40 AM 06/28/2023 11:40 AM 04/20/2023 10:05 AM Renal Na (external) 135 - 149 mmol/L 138 137 140 K (external) 3.6 - 5.1 mmol/L 4.1 4.7 4.9 Cl 96 - 114 mmol/L 106 105 104 Cl (external) 96 - 114 mmol/L 106 105 104 CO2 (external) 20 - 32 mmol/L 26 26 25 BUN (external) 7 - 30 mg/dL 20 27 43 Cr (external) 0.5 - 1.5 mg/dL 1.4 1.7 2.8 Glucose (external) 60 - 115 mg/dL 162 128 128 Ca (external) 8.4 - 10.6 mg/dL 8.5 8.6 8.9 This result is from an external source. Latest Ref Rng & Units 04/05/2022 7:49 AM 02/26/2022 3:55 PM 02/26/2022 9:26 AM Bone Health Phosphorus 2.5 - 4.5 mg/dL 2.6 2.9 Vit D Def 20 - 75 ug/L 36 Latest Ref Rng & Units 09/30/2023 9:40 AM 04/05/2023 12:30 PM 01/31/2023 8:54 AM Heme WBC 4.0 - 11.0 10e3/uL 3.5 WBC (external) 4.50 - 11.00 K/uL 2.26 3.15 Hgb 13.3 - 17.7 g/dL 9.9 Hgb (external) 13.5 - 17.5 gm/dL 11.3 11.3 Plt 150 - 450 10e3/uL 96 Plt (external) 140 - 440 K/uL 161 124 ABSOLUTE NEUTROPHILS (EXTERNAL) 1.7 - 7.0 K/uL 1.20 1.60 ABSOLUTE LYMPHOCYTES (EXTERNAL) 0.90 - 2.90 K/uL 0.70 1.10 ABSOLUTE MONOCYTES (EXTERNAL) 0.00 - 0.90 K/UL 0.20 0.20 ABSOLUTE EOSINOPHILS (EXTERNAL) 0.00 - 0.50 K/uL 0.10 0.20 ABSOLUTE BASOPHILS (EXTERNAL) 0.00 - 0.30 K/uL 0.00 0.00 This result is from an external source. Latest Ref Rng & Units 04/05/2023 12:30 PM 01/31/2023 8:54 AM 08/05/2022 9:57 AM Liver AP 40 - 129 U/L 62 62 AP (external) 40 - 150 U/L 58 TBili <=1.2 mg/dL 0.6 0.7 TBili (external) 0.1 - 1.5 mg/dL 0.4 Bilirubin Direct 0.00 - 0.30 mg/dL <0.20 <0.20 DBili (external) 0.0 - 0.5 mg/dL 0.0 ALT 0 - 70 U/L <5 6 ALT (external) 4 - 50 U/L 10 AST 0 - 45 U/L 6 14 AST (external) 12 - 35 U/L 17 Tot Protein 6.4 - 8.3 g/dL 6.6 6.8 Tot Protein (external) 6.0 - 8.3 g/dL 6.3 Albumin 3.5 - 5.2 g/dL 3.6 4.1 Albumin (external) 3.3 - 5.0 g/dL 3.6 Latest Ref Rng & Units 02/24/2022 9:42 PM 11/04/2021 11:07 AM 08/11/2021 10:00 AM Pancreas A1C <5.7 % 5.7 A1C (external) 0 - 5.6 5.7 5.8 Amylase 28 - 100 U/L 32 Lipase (Abby) 13 - 60 U/L 20 This result is from an external source. Latest Ref Rng & Units 01/31/2023 8:54 AM 08/05/2022 9:57 AM 04/05/2022 7:49 AM Iron studies Iron 61 - 157 ug/dL 33 80 81 Iron Sat Index 15 - 46 % 22 58 66 Ferritin 31 - 409 ng/mL 649 255 233 Latest Ref Rng & Units 05/13/2020 8:50 AM 08/01/2017 1:35 PM 02/22/2017 6:05 AM UMP Txp Virology BK Spec Plasma Plasma, EDTA anticoagulant C BK Res BKNEG^BK Virus DNA Not Detected copies/mL BK Virus DNA Not Detected BK Virus DNA Not Detected BK Log <2.7 Log copies/mL Not Calculated Not Calculated Hep B Core Ext Negative Negative C Corrected result This result is from an external source. Failed to redirect to the Timeline version of the [employer] Smart[employer]. Recent Labs Lab Test 04/05/22 0749 08/05/22 0957 01/31/23 0854 DOSTAC 04/04/2022 08/04/2022 01/30/2023 TACROL 3.4* 4.8* 6.2 Recent Labs Lab Test 07/20/16 0718 07/24/16 0705 07/27/16 0638 DOSMPA Not Provided Not Provided Not Provided MPACID 0.25* 1.09 1.11 MPAG 40.9 84.3 96.3* Prescription drug management 58 minutes spent by me on the date of the encounter doing chart review, history and exam, documentation and further activities per the note documented in this encounter Nursing Notes * Jose Shelton CMA - 10/11/2023 11:30 AM CDT Chief Complaint Patient presents with RECHECK K/P POST RETURN TXP NEPH - Return, Post Kidney Transplant Follow up, scheduled with patient BP 105/70 (BP Location: Right arm, Patient Position: Sitting, Cuff Size: Adult Regular) Pulse 86 Temp 98.1 ??F (36.7 ??C) (Oral) Wt 96.3 kg (212 lb 3.2 oz) SpO2 96% BMI 31.34 kg/m?? 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, or unspecified Immunosuppressed status (H24) Unspecified disorder of immune mechanism 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) Liver replaced by transplant Stage 3a chronic kidney disease (H) 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 transplant Aftercare following organ transplant Weakness of both lower extremities documented in this encounter Additional Health Concerns Infection Onset Date Last Indicated Resolved Time 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/16 urine, 07/10/16 rectal swab 06/21/2016 06/21/2016 documented as of this encounter Care Teams Capacitor Repairer Relationship Specialty Start Date End Date Rubén Boyle MD PCP - General Family Practice 03/08/16 Pamela Blanco NP [facility] [address] [place], [place] 746227 Referring Physician 07/13/16 Pedro Segura MD [facility] [address] [place], [place] 427167 Nephrology 10/03/16 Freddy Craft MD [address] [place] [address] [id number] Assigned Gastroenterology Provider 02/08/20 Abdifatah Van MD [address] [facility] [address] [place], [place] 506634 Assigned Nephrology Provider 07/13/20 11/07/23 Nicole Carranza NP [address] [facility] [address] [place] [address] Assigned Heart and Vascular Provider 01/09/22 Andressa Ruiz PA-C [address] [facility] [address] [place] [address] Physician Assembler Camper Endocrinology, Diabetes, and Metabolism 03/01/22 Suzan Harry MD [address] [place], [place] [id number] Nephrology 06/30/23 documented as of this encounter
--- OUTSIDE RECORDS SUMMARY | 2023-12-15 10:05 | XMS_ITS | Encounter Summary ---
Author Organization [place] Address [address] [place] [address] Care Team Providers Care Flight Control Tower Operator Name Role Phone Rubén Boyle MD Primary Care Provider Pamela Blanco COOK HELPER FRUIT Unavailable Pedro Segura MD Unavailable [phone] Freddy Craft MD Unavailable Abdifatah Van MD Unavailable Nicole Carranza COOK HELPER FRUIT Unavailable Andressa Ruiz-C Unavailable [phone] Suzan Harry MD Unavailable [phone] Yasmeen Powers MD Unavailable Yasmeen Powers MD Unavailable Encounter Details Date Type Department Care Team (Late st Contact Info) Description 09/30/2023 External Order Results [facility] [address] [place] [address] Outside, Provider 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) [...] (H) DIFFERENTIAL Routine 09/30/2023 9:40 AM CDT BASIC METABOLIC PANEL Routine 09/30/2023 9:40 AM CDT 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) CBC WITH PLATELETS Routine 09/30/2023 9: 40 AM CDT 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) documented in this encounter Results * Tacrolimus by Tandem Mass Spectrometry (09/30/2023 9:40 AM CDT) Pathologist [facility] Tacrolimus(FK-5 [id number]) (External) 3.0 ng/mL NON-INTERFACE D (ONBASE SCANS) Blood BLOOD SPECIMEN / Unknown 09/30/2023 9:40 AM CDT Narrative SAMANTHA PFT - 10/03/2023 12:33 PM CDT Verified by Rhiannon Cain on 10/03/2023. Freddy Dumont MD LAB - BLOOD ORD ERABLES SAMANTHA PFT NON-INTERFACED (ONBASE SCANS) * (ABNORMAL) Manual Differential (09/30/2023 9:40 AM CDT) Pathologist [facility] % Neutrophils (External) 54.1 42.0 - [...] MD LAB - BLOOD ORDERABL ES SAMANTHA PF NON-INTERFACED (ONBASE SCANS) * (ABNORMAL) CBC with [...] ORD ERABLES SAMANTHA PFT NON-INTERFACED (ONBASE SCANS) documented in this encounter Visit Diagnoses Diagnosis 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) Liver replaced by transplant documented in this encounter Additional Health Concerns Infection Onset Date Last Indicated Resolved Time 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/16 urine, 07/10/16 rectal swab 06/21/2016 06/21/2016 documented as of this encounter Care Teams Flight Control Tower Operator Relationship Specialty Start Date End Date Rubén Boyle MD PCP - General Family Practice 03/08/16 Pamela Blanco COOK HELPER FRUIT [facility] [address] [place], [place] 5[address]17 Referring Physician 07/13/16 Pedro Segura MD [facility] [address] [place], [place] [address]39[address] Nephrology 10/03/16 Freddy Craft MD [address] [facility] [address] [place], [place] 2220[address] Assigned Gastroenterology Provider 02/08/20 Abdifatah Van MD [address] [facility] [address] [place], [place] [address]574 Assigned Nephrology Provider 07/13/20 11/07/23 Nicole Carranza NP [address] [place] [address] [address] [place] [address] Assigned Heart and Vascular Provider 01/09/22 Andressa Ruiz PA-C [address] [facility] [address] [place] [address] Physician Red Mud Thickener Operator Endocrinology, Diabetes, and Metabolism 03/01/22 Suzan Harry MD [address] [place] [address] Nephrology 06/30/23 Yasmeen Powers MD [address] [place] [address] Nephrology 10/24/23 Yasmeen Powers MD [address] [place] [address] Assigned Nephrology Provider 11/08/23 documented as of this encounter
--- OUTSIDE RECORDS SUMMARY | 2023-12-15 10:05 | XMS_ITS | Encounter Summary ---
Author Organization [place] Address [address] [place] [address] Care Team Providers Care Cross Tie Maker Name Role Phone Rubén Boyle MD Primary Care Provider Pamela Blanoc CONVEYOR MAINTENANCE MECHANIC Unavailable Pedro Segura MD Unavailable [phone] Freddy Craft MD Unavailable Abdifatah Van MD Unavailable Nicole Carranza CONVEYOR MAINTENANCE MECHANIC Unavailable [phone] Andressa Ruiz-C Unavailable Suzan Harry MD Unavailable [phone] Reason for Visit * Reason Onset Date Comments Prior Auth - Medication 09/09/2023 Azathiop issae - pa pending Encounter Details Date Type Department Care Team (Late st Contact Info) Description 09/09/2023 Telephone [facility] Blood and Marrow Transplant Program [address] [address] Malinda Martino Prior Auth - Medication (Azathioprine - pa pending) Social History Tobacco Use Types Packs/Day Years [...] Telephone Encounter - Malinda Martino - 09/09/2023 10:16 AM CDT Images from the original note were not included. Prior Authorization Not Needed per Insurance Medication: AZATHIOPRINE 50 MG PO TABS Insurance Company: [employer] [place] - Pharmacy Filling the Rx: Pharmacy Notified: yes Patient Notified: no Medication should be billed to [facility] part B pharmacy was billing this to part D Since patient had medicare at time of transplant, transplant medications go to part B Per pharmacy they cannot bill patients part B coverage documented in this encounter Plan of Treatment [...] documented as of this encounter Care Teams Cross Tie Maker Relationship Specialty Start Date End Date Rubén Boyle MD PCP - General Family Practice 03/08/16 Pamela Blanco NP [facility] [address] [place] [address] Referring Physician 07/13/16 Pedro Segura MD [facility] [address] [place] [address] Nephrology 10/03/16 Freddy Craft MD [address] [facility] [address] [place], [place] [address] Assigned Gastroenterology Provider 02/08/20 Abdifatah Van MD [address] [facility] [address] [place], [place] 27[address] Assigned Nephrology Provider 07/13/20 11/07/23 Nicole Carranza NP [address] [facility] [address] [place], [place] 6[address] Assigned Heart and Vascular Provider 01/09/22 Andressa Ruiz PA-C 420 [facility] [address] [place], [place] 8[address] Physician Communications Editor Endocrinology, Diabetes, and Metabolism 03/01/22 Suzan Harry MD [address] [place], [place] 8[address] Nephrology 06/30/23 documented as of this encounter
--- OUTSIDE RECORDS SUMMARY | 2023-12-15 10:05 | XMS_ITS | Encounter Summary ---
Author Organization [place] Address [address] [place] [address] Care Team Providers Care Digital Sales Planner Name Role Phone Rubén Boyle MD Primary Care Provider Pamela Blanco FILM PROCESSING UTILITY WORKER Unavailable [phone] Pedro Segura MD Unavailable [phone] Fredyd Craft MD Unavailable Abdifatah Van MD Unavailable Nicole Carranza FILM PROCESSING UTILITY WORKER Unavailable [phone] Andressa Ruiz-C Unavailable Suzan Harry MD Unavailable [phone] Reason for Visit * Reason Onset Date Comments Transplant 10/05/2023 Encounter Details Date Type Department Care Team (Late st Contact Info) Description 10/05/2023 Telephone [facility] [address] [place] [address] Felipa Raya, powerhouse mechanic Social History Tobacco Use Types Packs/Day Years [...] encounter Miscellaneous Notes * Telephone Encounter - Felipa Raya RN - 10/05/2023 8:57 AM CDT ISSUE Upcoming SOT appointment on 10/11/23 @ 11:30 in person. OUTCOME Call placed to Lito. He states he has been feeling well recently, no health complaints. He is aware of his upcoming appointment and has a ride set up. 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, 07/10/16 rectal swab 06/21/2016 06/21/2016 documented as of this encounter Care Teams Digital Sales Planner Relationship Specialty Start Date End Date Rubén Boyle MD PCP - General Family Practice 03/08/16 Pamela Blanco NP [facility] [address] [place], [place] 6[address] Referring Physician 07/13/16 Pedro Segura MD [facility] [address] [place], [place] 1256[address] Nephrology 10/03/16 Freddy Craft MD [address] [place] [address] Assigned Gastroenterology Provider 02/08/20 Abdifatah Van MD [address] [facility] [address] [place] [address] Assigned Nephrology Provider 07/13/20 11/07/23 Nicole Carranza NP [address] [facility] [address] [place], [place] [address] Assigned Heart and Vascular Provider 01/09/22 Andressa Ruiz PA-C 420 [facility] [address] [place], [place] [address] Physician Juice Bar Team Member Endocrinology, Diabetes, and Metabolism 03/01/22 Suzan Harry MD 420 [place], [place] 7[address] Nephrology 06/30/23 documented as of this encounter
--- OUTSIDE RECORDS SUMMARY | 2023-12-15 10:05 | XMS_ITS | Encounter Summary ---
Author Organization [facility] Address [address] [place] [address] Care Team Providers Care Online Merchandiser Name Role Phone Rubén Boyle MD Primary Care Provider Pamela Blanco MANAGER SCIENCE Unavailable Pedro Segura MD Unavailable Freddy Carft MD Unavailable [phone] Abdifatah Van MD Unavailable Nicole Carranza MANAGER SCIENCE Unavailable Andressa RuizC Unavailable Rubén Gunter [facility] Unavailable Andressa Ruiz-C Unavailable Suzan Harry MD Unavailable [phone] Yasmeen Powers MD Unavailable [phone] Yasmeen Powers MD Unavailable [phone] Encounter Details Date Type Department Care Team (Late st Contact Info) Description 04/20/2023 External Order Results [facility] [address] [place] [address] Outside, Provider 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) [...] Associated Diagnosis Comments BASIC METABOLIC PANEL Routine 04/20/2023 10:05 AM COMPLIANCE PARALEGAL 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) documented in this encounter Results * (ABNORMAL) Basic metabolic panel (04/20/2023 10:05 AM COMPLIANCE PARALEGAL) Sodium (External) 140 135 - 149 mmol/L NON-INTERFACED (ONBASE SCANS) Potassium (External) 4.9 3.6 - 5.1 mmol/L NON-INTERFACED (ONBASE SCANS) Chloride (External) 104 96 - 114 mmol/L NON-INTERFACED (ONBASE SCANS) CO2 (External) 25 20 - 32 mmol/L NON-INTERFACED (ONBASE SCANS) Anion Gap (External) 11 7 - 15 mEq/L NON-INTERFACED (ONBASE SCANS) Urea Nitrogen (External) 43(H) 7 - 30 mg/dL NON-INTERFACED (ONBASE SCANS) Creatinine (External) 2.8(H) 0.5 - 1.5 mg/dL NON-INTERFACED (ONBASE SCANS) GFR Estimated (External) 24 ml/min NON-INTERFACED (ONBASE SCANS) Calcium (External) 8.9 8.4 - 10.6 mg/dL NON-INTERFACED (ONBASE SCANS) Glucose (External) 128(H) 60 - 115 mg/dL NON-INTERFACED (ONBASE SCANS) Blood BLOOD SPECIMEN / Unknown 04/20/2023 10:05 AM COMPLIANCE PARALEGAL Narrative AMNAE PFT - 04/26/2023 7:54 AM COMPLIANCE PARALEGAL Verified by Yamil Santo on 04/26/2023. 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, 07/10/16 rectal swab 06/21/2016 06/21/2016 documented as of this encounter Care Teams Online Merchandiser Relationship Specialty Start Date End Date Rubén Boyle MD PCP - General Family Practice 03/08/16 Pamela Blanco NP [facility] [address] [place], [place] [address] Referring Physician 07/13/16 Pedro Segura MD [facility] [address] [place], [place] [address] Nephrology 10/03/16 Freddy Craft MD [facility] [place], [place] [address] Assigned Gastroenterology Provider 02/08/20 Abdifatah Van MD [address] [facility] [address] [place] [address] Assigned Nephrology Provider 07/13/20 11/07/23 Nicole Carranza NP 420 [facility] 508 [place], [place] [address] Assigned Heart and Vascular Provider 01/09/22 Andressa Ruiz PA-C 420 [facility] 803 [place] [address] Physician Bar Machine Operator Multiple Spindle Endocrinology, Diabetes, and Metabolism 03/01/22 Rubén Gunter [facility] 909 [place] [address] Assigned MTM Pharmacist 02/27/22 Andressa Ruiz PA-C 420 [facility] 803 [place] [address] Assigned Endocrinology Provider 03/13/22 09/07/23 Suzan Harry MD 420 [place] [address] Nephrology 06/30/23 Yasmeen Powers MD 500 [place] [address] Nephrology 10/24/23 Yasmeen Powers MD 500 [place] [address] Assigned Nephrology Provider 11/08/23 documented as of this encounter
--- OUTSIDE RECORDS SUMMARY | 2023-12-15 10:05 | XMS_ITS | Encounter Summary ---
Author Organization [place] Address [address] [place] [address] Care Team Providers Care Web Development Intern Name Role Phone Rubén Boyle MD Primary Care Provider [phone] Pamela Blanco SANITARY LANDFILL OPERATOR Unavailable [phone] Pedro Segura MD Unavailable [phone] Freddy Craft MD Unavailable [phone] Abdifatah Van MD Unavailable Nicole Carranza SANITARY LANDFILL OPERATOR Unavailable [phone] Andressa Ruiz-C Unavailable [phone] Suzan Harry MD Unavailable [phone] Encounter Details Date Type Department Care Team (Latest Contact Info) Description 10/11/2023 Travel Social History Tobacco Use Types Packs/Day Years [...] documented as of this encounter Care Teams Web Development Intern Relationship Specialty Start Date End Date Rubén Boyle MD PCP - General Family Practice 03/08/16 Pamela Blanco NP [facility] [address] [place] [address] Referring Physician 07/13/16 Pedro Segura MD [facility] [address] [place], [place] [address] Nephrology 10/03/16 Freddy Craft MD [facility] [place], [place] [address] Assigned Gastroenterology Provider 02/08/20 Abdifatah Van MD 7[address] [facility] [address] [place], [place] [address] Assigned Nephrology Provider 07/13/20 11/07/23 Nicole Carranza NP 420 [facility] 508 [place], [place] [address] Assigned Heart and Vascular Provider 01/09/22 nAdressa Ruiz PA-C 420 [facility] 803 [place], [place] [address] Physician Portal Developer Endocrinology, Diabetes, and Metabolism 03/01/22 Suzan Harry MD [address] [place] [address] Nephrology 06/30/23 documented as of this encounter
--- OUTSIDE RECORDS SUMMARY | 2023-12-15 10:05 | XMS_ITS | Encounter Summary ---
Author Organization [place] Address [address] [place] [address] Care Team Providers Care Junior Marketing Associate Name Role Phone Rubén Boyle MD Primary Care Provider Pamela Blanco RESOURCE DIRECTOR Unavailable [phone] Pedro Segura MD Unavailable [phone] Freddy Craft MD Unavailable [phone] Abdifatah Van MD Unavailable Nicole Carranza RESOURCE DIRECTOR Unavailable Andressa RuizC Unavailable Rubén Gunter [facility] Unavailable Andressa Ruiz-C Unavailable Suzan Harry MD Unavailable [phone] Yasmeen Powers MD Unavailable Yasmeen Powers MD Unavailable [phone] Encounter Details Date Type Department Care Team (Late st Contact Info) Description 06/28/2023 External Order Results [facility] [address] [place] [address] Outside, Provider Social History Tobacco Use Types [...] Associated Diagnosis Comments BASIC METABOLIC PANEL Routine 06/28/2023 11:40 AM CDT documented in this encounter Results * (ABNORMAL) Basic metabolic panel (06/28/2023 11:40 AM CDT) Sodium (External) 137 135 - 149 mmol/L NON-INTERFACED (ONBASE SCANS) Potassium (External) 4.7 3.6 - 5.1 mmol/L NON-INTERFACED (ONBASE SCANS) Chloride (External) 105 96 - 114 mmol/L NON-INTERFACED (ONBASE SCANS) CO2 (External) 26 20 - 32 mmol/L NON-INTERFACED (ONBASE SCANS) Anion Gap (External) 6(L) 7 - 15 mEq/L NON-INTERFACED (ONBASE SCANS) Urea Nitrogen (External) 27 7 - 30 mg/dL NON-INTERFACED (ONBASE SCANS) Creatinine (External) 1.7(H) 0.5 - 1.5 mg/dL NON-INTERFACED (ONBASE SCANS) GFR Estimated (External) 43 ml/min NON-INTERFACED (ONBASE SCANS) Calcium (External) 8.6 8.4 - 10.6 mg/dL NON-INTERFACED (ONBASE SCANS) Glucose (External) 128(H) 60 - 115 mg/dL NON-INTERFACED (ONBASE SCANS) Blood BLOOD SPECIMEN / Unknown 06/28/2023 11:40 AM CDT Narrative ERICKEZE PFT - 06/30/2023 6:45 AM CDT Verified by Pedrito Stallworth on 06/30/2023. Abdifatah Van MD LAB - BLOOD ORDERABL ES BREEZE PFT NON-INTERFACED (ONBASE SCANS) documented in this encounter Visit Diagnoses Not on filedocumented in this encounter Additional Health Concerns Infection Onset Date Last Indicated Resolved Time 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/16 urine, 07/10/16 rectal swab 06/21/2016 06/21/2016 documented as of this encounter Care Teams Junior Marketing Associate Relationship Specialty Start Date End Date Rubén Boyle MD PCP - General Family Practice 03/08/16 Pamela Blanco NP [facility] [address] [place], [place] [address] Referring Physician 07/13/16 Pedro Segura MD [facility] [address] [place], [place] [address] Nephrology 10/03/16 Freddy Craft MD 516 [facility] [place] [address] Assigned Gastroenterology Provider 02/08/20 Abdifatah Van MD [address] [facility] [address] [place] [address] Assigned Nephrology Provider 07/13/20 11/07/23 Nicole Carranza NP 420 [facility] [address] [place] [address] Assigned Heart and Vascular Provider 01/09/22 Andressa Ruiz PA-C 420 [facility] 803 [place] [address] Physician Landing Man Endocrinology, Diabetes, and Metabolism 03/01/22 Rubén Gunter [facility] 909 [place] [address] Assigned MTM Pharmacist 02/27/22 Andressa Ruiz PA-C 420 [facility] 803 [place] [address] Assigned Endocrinology Provider 03/13/22 09/07/23 Suzan Harry MD 420 [place] [address] Nephrology 06/30/23 Yasmeen Powers MD 500 [place] [address] Nephrology 10/24/23 Yasmeen Powers MD 500 [place] [address] Assigned Nephrology Provider 11/08/23 documented as of this encounter
--- OUTSIDE RECORDS SUMMARY | 2023-12-15 10:05 | XMS_ITS | Encounter Summary ---
Author Organization [place] Address [address] [place] [address] Care Team Providers Care Air Pollution Compliance Inspector Name Role Phone Rubén Boyle MD Primary Care Provider Pamela Blanco PIG BREEDER Unavailable [phone] Pedro Segura MD Unavailable Freddy Craft MD Unavailable Abdifatah Van MD Unavailable Nicole Carranza PIG BREEDER Unavailable [phone] Andressa Ruiz-C Unavailable Suzan Harry MD Unavailable [phone] Reason for Visit * Reason Onset Date Comments Transplant Care Coordination 09/16/2023 Encounter Details Date Type Department Care Team (Late st Contact Info) Description 09/16/2023 Telephone [facility] [address] [place] [address] Renate Oh RN Transplant Care Coordination Social History Tobacco Use Types Packs/Day Years [...] Telephone Encounter - Malinda Alves RN - 09/19/2023 4:03 PM CDT Tac level on 09/16 was within goal at 5.7. Will continue Tacrolimus 0.5mg BID. Patient will call whenfluconazole prescription is completed to discuss lab frequency. * Telephone Encounter - Renate Oh RN - 09/16/2023 1:50 PM CDT Pharmacist Ileana called from [facility]: Patient will be discharged today, pharmacy wanted direction on Tac dosing considering patient has been on Fluconazole and will continue on this medication through the weekend. 09/13 Tac level was 8.2, goal is 4-6, patient is currently taking Tac 2mg BID. Recommended that they decrease patient's dose to 0.5mg BID and have him recheck a level Tuesday if possible so that a level will hopefully be available for review by Tuesday as it is a send out. Pharmacist in agreement, she will bring this to inpatient provider for review. Will plan to touch base with patient on Tuesday to instruct on Tac dosing and lab frequency once Fluconazole course is complete. 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, 07/10/16 rectal swab 06/21/2016 06/21/2016 documented as of this encounter Care Teams Air Pollution Compliance Inspector Relationship Specialty Start Date End Date Rubén Boyle MD PCP - General Family Practice 03/08/16 Pamela Blanco NP [facility] [address] [place] [address] Referring Physician 07/13/16 Pedro Segura MD [facility] [address] [place] [address] Nephrology 10/03/16 Freddy Craft MD 516 [facility] [address] [place], [place] [address] Assigned Gastroenterology Provider 02/08/20 Abdifatah Van MD [address] [facility] [address] [place] [address] Assigned Nephrology Provider 07/13/20 11/07/23 Nicole Carranza NP [address] [facility] [address] [place] [address] Assigned Heart and Vascular Provider 01/09/22 Andressa Ruiz PA-C 420 [facility] [address] [place], [place] [address] Physician Through Freight Engineer Endocrinology, Diabetes, and Metabolism 03/01/22 Suzan Harry MD 420 [place] [address] Nephrology 06/30/23 documented as of this encounter
--- OUTSIDE RECORDS SUMMARY | 2023-12-15 10:06 | XMS_ITS | Encounter Summary ---
Author Organization [place] Address [address] [place] [address] Care Team Providers Care Vascular Technologist Name Role Phone Rubén Boyle MD Primary Care Provider Pamela Blanco TECHNOLOGY AND ENGINEERING TEACHER Unavailable Pedro Segura MD Unavailable Freddy Craft MD Unavailable [phone] Abdifatah Van MD Unavailable Nicole Carranza TECHNOLOGY AND ENGINEERING TEACHER Unavailable Andressa RuizC Unavailable [phone] Rubén Gunter [facility] Unavailable Andressa Ruiz-C Unavailable [phone] Suzan Harry MD Unavailable [phone] Yasmeen Powers MD Unavailable Yasmeen Powers MD Unavailable [phone] Encounter Details Date Type Department Care Team (Late st Contact Info) Description 04/06/2023 External Order Results [facility] [address] [place] [address] Outside, Provider 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) [...] Associated Diagnosis Comments BASIC METABOLIC PANEL Routine 04/06/2023 10:50 AM POLITICAL SCIENCE FACULTY MEMBER 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) documented in this encounter Results * (ABNORMAL) Basic metabolic panel (04/06/2023 10:50 AM POLITICAL SCIENCE FACULTY MEMBER) Sodium (External) 138 135 - 149 mmol/L NON-INTERFACED (ONBASE SCANS) Chloride (External) 106 96 - 114 mmol/L NON-INTERFACED (ONBASE SCANS) CO2 (External) 24 20 - 32 mmol/L NON-INTERFACED (ONBASE SCANS) Anion Gap (External) 8 7 - 15 mEq/L NON-INTERFACED (ONBASE SCANS) Urea Nitrogen (External) 39(H) 7 - 30 mg/dL NON-INTERFACED (ONBASE SCANS) Creatinine (External) 1.9(H) 0.5 - 1.5 mg/dL NON-INTERFACED (ONBASE SCANS) GFR Estimated (External) 37 ML NON-INTERFACED (ONBASE SCANS) Calcium (External) 8.6 8.4 - 10.6 mg/dL NON-INTERFACED (ONBASE SCANS) Glucose (External) 160(H) 60 - 115 mg/dL NON-INTERFACED (ONBASE SCANS) Blood BLOOD SPECIMEN / Unknown 04/06/2023 10:50 AM POLITICAL SCIENCE FACULTY MEMBER Narrative SAMANTHA PFT - 04/08/2023 6:41 AM POLITICAL SCIENCE FACULTY MEMBER Verified by Yamil Santo on 04/08/2023. Freddy Dumont MD LAB - BLOOD ORD ERABLES SAMANTHA PFT NON-INTERFACED (ONBASE SCANS) documented in this encounter Visit Diagnoses Diagnosis 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) Liver replaced by transplant documented in this encounter Additional Health Concerns Infection Onset Date Last Indicated Resolved Time 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/16 urine, 07/10/16 rectal swab 06/21/2016 06/21/2016 documented as of this encounter Care Teams Vascular Technologist Relationship Specialty Start Date End Date Rubén Boyel MD PCP - General Family Practice 03/08/16 Pamela Blanco NP [facility] [address] [place] [address] Referring Physician 07/13/16 Pedro Segura MD [facility] [address] [place] [address] Nephrology 10/03/16 Freddy Craft MD [address] [facility] [place] [address] Assigned Gastroenterology Provider 02/08/20 Abdifatah Van MD [address] [facility] [address] [place] [address] Assigned Nephrology Provider 07/13/20 11/07/23 Nicole Carranza NP 420 [facility] [address] [place] [address] Assigned Heart and Vascular Provider 01/09/22 Andressa Ruiz PA-C 420 [facility] 803 [place] [address] Physician Overedger Endocrinology, Diabetes, and Metabolism 03/01/22 Rubén Gunter [facility] 909 [place] [address] Assigned MTM Pharmacist 02/27/22 Andressa Ruiz PA-C 420 [facility] 803 [place] [address] Assigned Endocrinology Provider 03/13/22 09/07/23 Suzan Harry MD [address] [place] [address] Nephrology 06/30/23 Yasmeen Powers MD 500 [place] [address] Nephrology 10/24/23 Yasmeen Powers MD 500 [place] [address] Assigned Nephrology Provider 11/08/23 documented as of this encounter
--- OUTSIDE RECORDS SUMMARY | 2023-12-15 10:06 | XMS_ITS | Encounter Summary ---
Author Organization [place] Address [address] [place] [address] Care Team Providers Care Fugitive Detective Name Role Phone Rubén Boyle MD Primary Care Provider Pamela Blanco PUNCH OUT CREW MEMBER Unavailable Pedro Segura MD Unavailable Freddy Craft MD Unavailable [phone] Abdifatah Van MD Unavailable Nicole Carranza PUNCH OUT CREW MEMBER Unavailable [phone] Andressa Ruiz-C Unavailable Ashlyn Storm RN Unavailable Rubén Guntre [facility] Unavailable Andressa Ruiz-C Unavailable Suzan Harry MD Unavailable [phone] Yasmeen Powers MD Unavailable [phone] Yasmeen Powers MD Unavailable [phone] Encounter Details Date Type Department Care Team (Late st Contact Info) Description 04/22/2022 External Order Results [facility] [address] [place] [address] Outside, Provider History of liver transplant (H) Social History Tobacco Use Types Packs/Day Years Used Date Smoking Tobacco: Former Cigarettes Q uit: 04/18/1985 Smokeless Tobacco: Never Comments:quit years ago Alcohol Use Standard Drinks/Week Comments No 0 (1 standard drink = 0.6 oz pur e alcohol) quit Dec 2015 PHQ-2 Answer Date Recorded PHQ-2 Score 0 03/10/2022 Sex and Gender Information Value Date Recorded Sex Assigned at Not on file Gender Identity Not on file Sexual Orientation Not on file COVID-19 Exposure Response Date Recorded In the last 10 days, have yo u been in contact with someone who was confirmed or suspected to have Coronavirus/COVID-19? No / Unsure 04/05/2022 7:31 AM QUILT MAKER documented as of this encounter Plan of Treatment Not on file documented as of this encounter Procedures Procedure Name Priority Date/Time Associated Diagnosis Comments CBC WITH PLATELETS & DIFFERENTIAL Routine 04/22/2022 11:39 AM QUILT MAKER TACROLIMUS BY TANDEM MASS SPECTROMETRY Routine 04/22/2022 11:39 AM QUILT MAKER History of liver transplant (H) MAGNESIUM Routine 04/22/2022 11:39 AM QUILT MAKER HEPATIC FUNCTION PANEL Routine 04/22/2022 11:39 AM QUILT MAKER BASIC METABOLIC PANEL Routine 04/22/2022 11:39 AM QUILT MAKER documented in this encounter Results * Tacrolimus by Tandem Mass Spectrometry (04/22/2022 11:39 AM QUILT MAKER) Tacrolimus(FK-5 06) (External) 4.7 ng/mL NON-INTERFACE D (ONBASE SCANS) Blood 04/22/2022 11:3 9 AM QUILT MAKER Narrative SAMANTHA PFT - 04/26/2022 12:21 PM QUILT MAKER Verified by Chela Rutledge on 04/26/2022. Freddy Dumont MD LAB - BLOOD ORD ERABLES SAMANTHA PFTameka NON-INTERFACED (ONBASE SCANS) * (ABNORMAL) Basic metabolic panel (04/22/2022 11:39 AM QUILT MAKER) Sodium (External) 139 135 - 149 mmol/L NON-INTERFACED (ONBASE SCANS) Potassium (External) 5.4(H) 3.6 - 5.1 mmol/L NON-INTERFACED (ONBASE SCANS) Chloride (External) 107 96 - 114 mmol/L NON-INTERFACED (ONBASE SCANS) CO2 (External) 28 20 - 32 mmol/L NON-INTERFACED (ONBASE SCANS) Urea Nitrogen (External) 19 7 - 30 mg/dL NON-INTERFACED (ONBASE SCANS) Creatinine (External) 1.5 0.5 - 1.5 mg/dL NON-INTERFACED (ONBASE SCANS) GFR Estimated (External) 50 ml/min NON-INTERFACED (ONBASE SCANS) Calcium (External) 9.1 8.4 - 10.6 mg/dL NON-INTERFACED (ONBASE SCANS) Glucose (External) 171(H) 60 - 115 mg/dL NON-INTERFACED (ONBASE SCANS) Blood BLOOD SPECIMEN / Unknown 04/22/2022 11:39 AM QUILT MAKER Narrative SAMANTHA PFT - 04/23/2022 9:53 AM QUILT MAKER Verified by Yamil Santo on 04/23/2022. Freddy Dumont MD LAB - BLOOD ORD ERABLES SAMANTHA PF NON-INTERFACED (ONBASE SCANS) * Hepatic function panel (04/22/2022 11:39 AM QUILT MAKER) Protein Total (External) 6.1 6.0 - 8.3 g/dL NON-INTERFACED (ONBASE SCANS) Albumin (External) 3.8 3.3 - 5.0 g/dL NON-INTERFACED (ONBASE SCANS) Bilirubin Total (External) 1.2 0.1 - 1.5 mg/dL NON-INTERFACED (ONBASE SCANS) Bilirubin Direct (External) 0.1 0.0 - 0.5 mg/dL NON-INTERFACED (ONBASE SCANS) AST (External) 19 12 - 35 U/L NON-INTERFACED (ONBASE SCANS) ALT (External) 11 4 - 50 U/L NON- INTERFACED (ONBASE SCANS) Alk Phosphatase (External) 66 40 - 150 U/L NON-INTERFACED (ONBASE SCANS) Blood BLOOD SPECIMEN / Unknown 04/22/2022 11:39 AM QUILT MAKER Narrative BREEZE PFT - 04/23/2022 9:53 AM QUILT MAKER Verified by Yamil Santo on 04/23/2022. Freddy Dumont MD LAB - BLOOD ORD ERABLES ERICKEZE PFT NON-INTERFACED (ONBASE SCANS) * Magnesium (04/22/2022 11:39 AM QUILT MAKER) Magnesium (External) 1.6 1.5 - 2.6 mg/dL NON-INTERFACED (ONBASE SCANS) Blood BLOOD SPECIMEN / Unknown 04/22/2022 11:39 AM QUILT MAKER Narrative BREEZE PFT - 04/23/2022 9:53 AM QUILT MAKER Verified by Yamil Santo on 04/23/2022. Freddy Dumont MD LAB - BLOOD ORD ERABLES ERICKEZE PFT NON-INTERFACED (ONBASE SCANS) * (ABNORMAL) CBC with Platelets & Differential (04/22/2022 11:39 AM QUILT MAKER) WBC Count (External) 2.02(L) 4.50 - 11.00 K/uL NON-INTERFACE D (ONBASE SCANS) RBC Count (External) 3.45(L) 4.30 - 5.90 m/uL NON-INTERFACE D (ONBASE SCANS) Hemoglobin (External) 11.6(L) 13.5 - 17.5 gm/dL NON-INTERFACE D (ONBASE SCANS) Hematocrit (External) 34.0(L) 37.0 - 53.0 % NON-INTERFACE D (ONBASE SCANS) MCV (External) 99 80 - 100 fL NON-INTERFACE D (ONBASE SCANS) MCH (External) 34 26 - 34 pg NON- INTERFACE D (ONBASE SCANS) MCHC (External) 34 32 - 36 gm/dL NON-INTERFACE D (ONBASE SCANS) Platelet Count (External) 114(L) 140 - 440 K/uL NON-INTERFACE D (ONBASE SCANS) RDW (External) 13.4 11.5 - 15.5 % NON-INTERFACE D (ONBASE SCANS) % Neutrophils (External) 66.3 42.0 - 72.0 % NON-INTERFACE D (ONBASE SCANS) % Lymphocytes (External) 19.3(L) 20 - 44 % NON-INTERFACE D (ONBASE SCANS) % Monocytes (External) 9.9 0.0 - 11.0 % NON-INTERFACE D (ONBASE SCANS) % Eosinophils (External) 3.0 0.0 - 7.0 % NON-INTERFACE D (ONBASE SCANS) % Bands (External) 0.5 0.0 - 3.0 % NON-INTERFACE D (ONBASE SCANS) Absolute Neutrophils (External) 1.30(L) 1.7 - 7.0 K/uL NON-INTERFACE D (ONBASE SCANS) Absolute Lymphocytes (External) 0.40(L) 0.90 - 2.90 K/uL NON-INTERFACE D (ONBASE SCANS) Absolute Monocytes (External) 0.20 0.00 - 0.90 K/UL NON-INTERFACE D (ONBASE SCANS) Absolute Eosinophils (External) 0.10 0.00 - 0.50 K/uL NON-INTERFACE D (ONBASE SCANS) Absolute Basophils (External) 0.00 0.00 - 0.30 K/uL NON-INTERFACE D (ONBASE SCANS) Blood BLOOD SPECIMEN / Unknown 04/22/2022 11:39 AM QUILT MAKER Narrative SAMANTHA PFT - 04/23/2022 9:53 AM QUILT MAKER Verified by Yamil Santo on 04/23/2022. Freddy Dumont MD LAB - BLOOD ORD ERABLES SAMANTHA KEMP NON-INTERFACED (ONBASE SCANS) documented in this encounter Visit Diagnoses Diagnosis History of liver transplant (H) Liver replaced by transplant documented in this encounter Additional Health Concerns Infection Onset Date Last Indicated Resolved Time 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/16 urine, 07/10/16 rectal swab 06/21/2016 06/21/2016 documented as of this encounter Care Teams Fugitive Detective Relationship Specialty Start Date End Date Rubén Boyle MD PCP - General Family Practice 03/08/16 Pamela Blanco PUNCH OUT CREW MEMBER [facility] [address] [place], [place] [address] Referring Physician 07/13/16 Pedro Segura MD [facility] [address] [place], [place] [address] Nephrology 10/03/16 Freddy Craft MD 516 [facility] 2A [place], [place] [address] Assigned Gastroenterology Provider 02/08/20 Abdifatah Van MD 717 [facility] [address] [place] [address] Assigned Nephrology Provider 07/13/20 11/07/23 Nicole Carranza NP 420 [facility] 508 [place] [address] Assigned Heart and Vascular Provider 01/09/22 Andressa Ruiz PA-C 420 [facility] 803 [place] [address] Physician Roller Cleaner Endocrinology, Diabetes, and Metabolism 03/01/22 Ashlyn Storm RN [facility] 711 [place], [place] [id number] Registered Nurse 03/03/22 09/15/22 Rubén Gunter [facility] 909 [place] [address] Assigned MTM Pharmacist 02/27/22 Andressa Ruiz PA-C 420 [facility] [address] [place] [address] Assigned Endocrinology Provider 03/13/22 09/07/23 Suzan Harry MD 420 [place], [place] [address] Nephrology 06/30/23 Yasmeen Powers MD 500 [place] [address] Nephrology 10/24/23 Yasmeen Powers MD [address] [place] [address] Assigned Nephrology Provider 11/08/23 documented as of this encounter
--- OUTSIDE RECORDS SUMMARY | 2023-12-15 10:06 | XMS_ITS | Encounter Summary ---
Author Organization [place] Address [address] [place] [address] Care Team Providers Care Teaching Aide Name Role Phone Rubén Boyle MD Primary Care Provider Pamela Blanco SOFTWARE TEST DEVELOPER Unavailable [phone] Pedro Segura MD Unavailable [phone] Freddy Craft MD Unavailable Abdifatah Van MD Unavailable Nicole Carranza SOFTWARE TEST DEVELOPER Unavailable Andressa RuizC Unavailable Rubén Gunter [facility] Unavailable Andressa Ruiz-C Unavailable Suzan Harry MD Unavailable [phone] Yasmeen Powers MD Unavailable [phone] Yasmeen Powers MD Unavailable [phone] Encounter Details Date Type Department Care Team (Late st Contact Info) Description 02/22/2023 MyC Medical Advice [facility] [address] [place] [address] Jessica Dillon Social History Tobacco Use Types Packs/Day Years [...] documented as of this encounter Care Teams Teaching Aide Relationship Specialty Start Date End Date Rubén Boyle MD PCP - General Family Practice 03/08/16 Pamela Blanco NP [facility] [address] [place] [address] Referring Physician 07/13/16 Pedro Segura MD [facility] [address] [place], [place] [address] Nephrology 10/03/16 Freddy Craft MD 516 [facility] [address] [place], [place] [address] Assigned Gastroenterology Provider 02/08/20 Abdifatah Van MD [address] [place] [address] [place], [place] [address] Assigned Nephrology Provider 07/13/20 11/07/23 Nicole Carranza NP 420 [facility] 508 [place] [address] Assigned Heart and Vascular Provider 01/09/22 Andressa Ruiz PA-C 420 [facility] 803 [place] [address] Physician Sketcher Endocrinology, Diabetes, and Metabolism 03/01/22 Rubén Gunter [facility] [address] [place] [address]1035 Assigned MTM Pharmacist 02/27/22 Andressa Ruiz PA-C 420 [facility] 803 [place], [place] [address] Assigned Endocrinology Provider 03/13/22 09/07/23 Suzan Harry MD 420 [place] [address] Nephrology 06/30/23 Yasmeen Powers MD 500 [place] [address] Nephrology 10/24/23 Yasmeen Powers MD 500 [place] [address] Assigned Nephrology Provider 11/08/23 documented as of this encounter
--- OUTSIDE RECORDS SUMMARY | 2023-12-15 10:06 | XMS_ITS | Encounter Summary ---
Author Organization [place] Address [address] [place] [address]. [place] [address] Care Team Providers Care Blood And Plasma Laboratory Assistant Name Role Phone Rubén Boyle MD Primary Care Provider [phone] Pamela Blanco JAVA SOFTWARE Unavailable [phone] Pedro Segura MD Unavailable Freddy Craft MD Unavailable Abdifatah Van MD Unavailable Nicole Carranza JAVA SOFTWARE Unavailable Andressa Ruiz-C Unavailable [phone] Ashlyn Storm RN Unavailable Rubén Gunter [facility] Unavailable Andressa Ruiz-C Unavailable Suzan Harry MD Unavailable [phone] Yasmeen Powers MD Unavailable Yasmeen Powers MD Unavailable [phone] Encounter Details Date Type Department Care Team (Late st Contact Info) Description 02/23/2022 MyC Medical Advice [facility]PH[facility] [address]50 [place] [address] Laurie Torres Social History Tobacco Use Types Packs/Day Years Used Date Smoking Tobacco: Former Cigarettes Q uit: 04/18/1985 Smokeless Tobacco: Never Comments:quit years ago Alcohol Use Standard Drinks/Week Comments No 0 (1 standard drink = 0.6 oz pur e alcohol) quit Dec 2015 PHQ-2 Answer Date Recorded PHQ-2 Score 2 01/27/2022 Sex and Gender Information Value Date Recorded Sex Assigned at Not on file Gender Identity Not on file Sexual Orientation Not on file COVID-19 Exposure Response Date Recorded In the last 10 days, have yo u been in contact with someone who was confirmed or suspected to have Coronavirus/COVID-19? 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, 07/10/16 rectal swab 06/21/2016 06/21/2016 documented as of this encounter Care Teams Blood And Plasma Laboratory Assistant Relationship Specialty Start Date End Date Rubén Boyle MD PCP - General Family Practice 03/08/16 Pamela Blanco NP [facility] [address] [place] [address] Referring Physician 07/13/16 Pedro Segura MD [facility] [address] [place] [address] Nephrology 10/03/16 Freddy Craft MD [address] [address] Assigned Gastroenterology Provider 02/08/20 Abdifatah Van MD 717 [facility] 353 [place] [address] Assigned Nephrology Provider 07/13/20 11/07/23 Nicole Carranza NP 420 [facility] 508 [place] [address] Assigned Heart and Vascular Provider 01/09/22 Andressa Ruiz PA-C 420 [facility] 803 [place] [address] Physician Abalone Fisherman Endocrinology, Diabetes, and Metabolism 03/01/22 Ashlyn Storm, RN [facility] 711 [place] [address] Registered Nurse 03/03/22 09/15/22 Rubén Gunter [facility] [address] [place] [address] Assigned MTM Pharmacist 02/27/22 Andressa Ruiz PA-C 420 [facility] 803 [place] [address] Assigned Endocrinology Provider 03/13/22 09/07/23 Suzan Harry MD 420 [place] [address] Nephrology 06/30/23 Yasmeen Powers MD 500 [place], [place] [address] Nephrology 10/24/23 Yasmeen Powers MD 500 [place], [place] [address] Assigned Nephrology Provider 11/08/23 documented as of this encounter
--- OUTSIDE RECORDS SUMMARY | 2023-12-15 10:06 | XMS_ITS | Encounter Summary ---
Author Organization [place] Address [address] [place] [address] Care Team Providers Care Logistics Vice President Name Role Phone Rubén Boyle MD Primary Care Provider Pamela Blanco STRATEGIC CLIENT EXECUTIVE Unavailable Pedro Segura MD Unavailable Freddy Craft MD Unavailable Abdifatah Van MD Unavailable Nicole Carranza STRATEGIC CLIENT EXECUTIVE Unavailable Andressa Ruiz-C Unavailable Rubén Gutner [facility] Unavailable Andressa Ruiz-C Unavailable Suzan Harry MD Unavailable [phone] Yasmeen Powers MD Unavailable Yasmeen Powers MD Unavailable [phone] Encounter Details Date Type Department Care Team (Late st Contact Info) Description 01/13/2023 MyC Medical Advice [facility] [address] [place] [address] Lashanda Hsieh, [facility] Social History Tobacco Use Types Packs/Day Years [...] documented as of this encounter Care Teams Logistics Vice President Relationship Specialty Start Date End Date Rubén Boyle MD PCP - General Family Practice 03/08/16 Pamela Blanco STRATEGIC CLIENT EXECUTIVE [facility] [address] [place] [address] Referring Physician 07/13/16 Pedro Segura MD [facility] [address] [place] [address] Nephrology 10/03/16 Freddy Craft MD 516 [facility] [address] [place], [place] [address] Assigned Gastroenterology Provider 02/08/20 Abdifatah Van MD [facility] [address] [place], [place] [address] Assigned Nephrology Provider 07/13/20 11/07/23 Nicole Carranza NP 420 [facility] [address] [place] [address] Assigned Heart and Vascular Provider 01/09/22 Andressa Ruiz PA-C 420 [facility] [place] 803 [place] [address] Physician Laboratory Mechanical Technician Endocrinology, Diabetes, and Metabolism 03/01/22 Rubén Gunter [facility] [address] [place] [address] Assigned MTM Pharmacist 02/27/22 Andressa Ruiz PA-C 420 [facility] [place] 803 [place] [address] Assigned Endocrinology Provider 03/13/22 09/07/23 Suzan Harry MD [address] [place] [address] Nephrology 06/30/23 Yasmeen Powers MD 500 [place] [address] Nephrology 10/24/23 Yasmeen Powers MD 500 [place] [address] Assigned Nephrology Provider 11/08/23 documented as of this encounter
--- OUTSIDE RECORDS SUMMARY | 2023-12-15 10:06 | XMS_ITS | Encounter Summary ---
Author Organization [place] Address [address] [place] [address] Care Team Providers Care Sales And Retail Management Recruiter Name Role Phone Rubén Boyle MD Primary Care Provider Pamela Blanco TREATMENT PLANT OPERATOR Unavailable Pedro Segura MD Unavailable Freddy Craft MD Unavailable Abdifatah Van MD Unavailable Nicole Carranza TREATMENT PLANT OPERATOR Unavailable [phone] Andressa Ruiz-C Unavailable Ashlyn Storm RN Unavailable Rubén Gunter [facility] Unavailable Andressa Riuz-C Unavailable Suzan Harry MD Unavailable [phone] Yasmeen Powers MD Unavailable [phone] Yasmeen Powers MD Unavailable [phone] Encounter Details Date Type Department Care Team (Late st Contact Info) Description 02/22/2022 External Order Results [facility] [address] [place] [address] Outside, Provider Social History Tobacco Use Types [...] Coronavirus/COVID-19? No / Unsure 02/24/2022 7:54 AM LENS MATCHER documented as of this encounter Plan of Treatment Not on file documented as of this encounter Procedures Procedure Name Priority Date/Time Associated Diagnosis Comments COVID-19 VIRUS (CORONAVIRUS) BY PCR (EXTERNAL RESULT) Routine 02/22/2022 10:45 AM LENS MATCHER documented in this encounter Results * COVID-19 Virus (Coronavirus) by PCR (External Result) (02/22/2022 10:45 AM LENS MATCHER) COVID-19 Virus by PCR (External Result) Negative Negative NON-INTERFACE D (ONBASE SCANS) 02/22/2022 10:4 5 AM LENS MATCHER Narrative SAMANTHA PFT - 02/23/2022 3:26 PM LENS MATCHER Verified by Rhiannon Cain on 02/23/2022. 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, 07/10/16 rectal swab 06/21/2016 06/21/2016 documented as of this encounter Care Teams Sales And Retail Management Recruiter Relationship Specialty Start Date End Date Rubén Boyle MD PCP - General Family Practice 03/08/16 Pamela Blanco TREATMENT PLANT OPERATOR [facility] [address] [place] [address] Referring Physician 07/13/16 Pedro Segura MD [facility] [address] [place] [address] Nephrology 10/03/16 Freddy Craft MD 516 [facility] [address] [place], [place] [address] Assigned Gastroenterology Provider 02/08/20 Abdifatah Van MD 717 [facility] [address] [place], [place] [address] Assigned Nephrology Provider 07/13/20 11/07/23 Nicole Carranza NP 420 [facility] [address] [place], [place] [address] Assigned Heart and Vascular Provider 01/09/22 Andressa Ruiz PA-C 420 [facility] [address] [place], [place] [address] Physician Preflight Mechanic Endocrinology, Diabetes, and Metabolism 03/01/22 Ashlyn Storm RN [facility] 711 [place], [place] [address] Registered Nurse 03/03/22 09/15/22 Rubén Gunter [facility] [address] [facility] [address] [place], [place] [address] Assigned MTM Pharmacist 02/27/22 Andressa Ruiz PA-C 420 [facility] [address] [place], [place] [address] Assigned Endocrinology Provider 03/13/22 09/07/23 Suzan Harry MD 420 [place], [place] [address] Nephrology 06/30/23 Yasmeen Powers MD 500 [place], [place] [address] Nephrology 10/24/23 Yasmeen Powers MD 500 [place] [address] Assigned Nephrology Provider 11/08/23 documented as of this encounter
--- OUTSIDE RECORDS SUMMARY | 2023-12-15 10:06 | XMS_ITS | Encounter Summary ---
Author Organization [facility] Address [address] [place] [address] Care Team Providers Care Mannequin Mounter Name Role Phone Rubén Boyle MD Primary Care Provider [phone] Pamela Blanco TECHNICAL SALES ASSOCIATE Unavailable Pedro Segura MD Unavailable Freddy Craft MD Unavailable Abdifatah Van MD Unavailable Nicole Carranza TECHNICAL SALES ASSOCIATE Unavailable Andressa RuizC Unavailable [phone] Rubén Gunter [facility] Unavailable Andressa Ruiz-C Unavailable Suzan Harry MD Unavailable [phone] Yasmeen Powers MD Unavailable [phone] Yasmeen Powers MD Unavailable [phone] Encounter Details Date Type Department Care Team (Late st Contact Info) Description 04/05/2023 External Order Results [facility] [address] [place] [address] Outside, Provider 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) [...] Comments TACROLIMUS BY TANDEM MASS SPECTROMETRY Routine 04/05/2023 12:30 PM SANITATION TANK WASHER 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) MAGNESIUM Routine 04/05/2023 12:30 PM SANITATION TANK WASHER HEPATIC FUNCTION PANEL Routine 04/05/2023 12:30 PM SANITATION TANK WASHER 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) DIFFERENTIAL Routine 04/05/2023 12:30 PM SANITATION TANK WASHER BASIC METABOLIC PANEL Routine 04/05/2023 12:30 PM SANITATION TANK WASHER 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) CBC WITH PLATELETS Routine 04/05/2023 12 :30 PM SANITATION TANK WASHER 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) documented in this encounter Results * Tacrolimus by Tandem Mass Spectrometry (04/05/2023 12:30 PM SANITATION TANK WASHER) Tacrolimus(FK-5 06) (External) 9.3 5.0 - 15.0 ng/mL NON-INTERFACED (ONBASE SCANS) Blood BLOOD SPECIMEN / Unknown 04/05/2023 12:30 PM SANITATION TANK WASHER Narrative SAMANTHA PFT - 04/12/2023 12:23 PM SANITATION TANK WASHER Verified by Cruzito Marlow on 04/12/2023. Frdedy Dumont MD LAB - BLOOD ORD ERABLES SAMANTHA PFT NON-INTERFACED (ONBASE SCANS) * (ABNORMAL) Magnesium (04/05/2023 12:30 PM SANITATION TANK WASHER) Pathologist [facility] Magnesium (External) 1.3(L) 1.5 - 2.6 mg/dL NON-INTERFACED (ONBASE SCANS) Blood BLOOD SPECIMEN / Unknown 04/05/2023 12:30 PM SANITATION TANK WASHER Narrative SAMANTHA PFT - 04/07/2023 6:34 AM SANITATION TANK WASHER Verified by Yamil Santo on 04/07/2023. Freddy Dumont MD LAB - BLOOD ORD ERABLES SAMANTHA PFT NON-INTERFACED (ONBASE SCANS) * (ABNORMAL) Manual Differential (04/05/2023 12:30 PM SANITATION TANK WASHER) Pathologist [facility] % Neutrophils (External) 51.5 42.0 - 72.0 % NON-INTERFACE D (ONBASE SCANS) % Lymphocytes (External) 34.9 20 - 44 % NON-INTERFACE D (ONBASE SCANS) % Monocytes (External) 7.3 0.0 - 11.0 % NON-INTERFACE D (ONBASE SCANS) % Eosinophils (External) 5.7 0.0 - 7.0 % NON-INTERFACE D (ONBASE SCANS) % Basophils (External) 0.3 0.0 - 3.0 % NON-INTERFACE D (ONBASE SCANS) % Immature Granulocytes (External) 0.3 % NON-INTERFACE D (ONBASE SCANS) Absolute Neutrophils (External) 1.60(L) 1.7 - 7.0 K/uL NON-INTERFACE D (ONBASE SCANS) Absolute Lymphocytes (External) 1.10 0.90 - 2.90 K/uL NON-INTERFACE D (ONBASE SCANS) Absolute Monocytes (External) 0.20 0.00 - 0.90 K/UL NON-INTERFACE D (ONBASE SCANS) Absolute Eosinophils (External) 0.20 0.00 - 0.50 K/uL NON-INTERFACE D (ONBASE SCANS) Absolute Basophils (External) 0.00 0.00 - 0.30 K/uL NON-INTERFACE D (ONBASE SCANS) Absolute Immature Granulocytes (External) 0.00 0.00 - 0.30 K/uL NON-INTERFACE D (ONBASE SCANS) Blood BLOOD SPECIMEN / Unknown 04/05/2023 12:30 PM SANITATION TANK WASHER Narrative BREEZE PFT - 04/07/2023 6:34 AM SANITATION TANK WASHER Verified by Yamil Santo on 04/07/2023. Freddy Dumont MD LAB - BLOOD ORD ERABLES AMNAE PFT NON-INTERFACED (ONBASE SCANS) * Hepatic panel (04/05/2023 12:30 PM SANITATION TANK WASHER) Protein Total (External) 6.3 6.0 - 8.3 [...] BLOOD SPECIMEN / Unknown 04/05/2023 12:30 PM SANITATION TANK WASHER Narrative AMNAE PFT - 04/07/2023 6:33 AM SANITATION TANK WASHER Verified by Yamil Santo on 04/07/2023. Freddy Dumont MD LAB - BLOOD ORD ERABLES SAMANTHA PFT NON-INTERFACED (ONBASE SCANS) * (ABNORMAL) CBC with platelets (04/05/2023 12:30 PM SANITATION TANK WASHER) WBC Count (External) 3.15(L) 4.50 - 11.00 K/uL NON-INTERFACE D (ONBASE SCANS) RBC Count (External) 3.55(L) 4.30 - 5.90 m/uL NON-INTERFACE D (ONBASE SCANS) Hemoglobin (External) 11.3(L) 13.5 - 17.5 gm/dL NON-INTERFACE D (ONBASE SCANS) Hematocrit (External) 35.2(L) 37.0 - 53.0 % NON-INTERFACE D (ONBASE SCANS) MCV (External) 99 80 - 100 fL NON-INTERFACE D (ONBASE SCANS) MCH (External) 32 26 - 34 ML NON- INTERFACE D (ONBASE SCANS) MCHC (External) 32 32 - 36 gm/dL NON-INTERFACE D (ONBASE SCANS) Platelet Count (External) 124(L) 140 - 440 K/uL NON-INTERFACE D (ONBASE SCANS) RDW (External) 13.9 11.5 - 15.5 % NON-INTERFACE D (ONBASE SCANS) Blood BLOOD SPECIMEN / Unknown 04/05/2023 12:30 PM SANITATION TANK WASHER Narrative SAMANTHA PFT - 04/07/2023 6:33 AM SANITATION TANK WASHER Verified by Yamil Santo on 04/07/2023. Freddy Dumont MD LAB - BLOOD ORD ERABLES SAMANTHA PFT NON-INTERFACED (ONBASE SCANS) * (ABNORMAL) Basic metabolic panel (04/05/2023 12:30 PM SANITATION TANK WASHER) Sodium (External) 139 135 - 149 mmol/L NON-INTERFACED (ONBASE SCANS) Potassium (External) 6.2(H) 3.6 - 5.1 mmol/L NON-INTERFACED (ONBASE SCANS) Chloride (External) 108 96 - 114 mmol/L NON-INTERFACED (ONBASE SCANS) CO2 (External) 21 20 - 32 mmol/L NON-INTERFACED (ONBASE SCANS) Anion Gap (External) 10 7 - 15 mEq/L NON-INTERFACED (ONBASE SCANS) Urea Nitrogen (External) 37(H) 7 - 30 mg/dL NON-INTERFACED (ONBASE SCANS) Creatinine (External) 2.1(H) 0.5 - 1.5 mg/dL NON-INTERFACED (ONBASE SCANS) GFR Estimated (External) 33 ml/min NON-INTERFACED (ONBASE SCANS) Calcium (External) 8.5 8.4 - 10.6 mg/dL NON-INTERFACED (ONBASE SCANS) Glucose (External) 174(H) 60 - 115 mg/dL NON-INTERFACED (ONBASE SCANS) Blood BLOOD SPECIMEN / Unknown 04/05/2023 12:30 PM SANITATION TANK WASHER Narrative SAMANTHA PFT - 04/07/2023 6:29 AM SANITATION TANK WASHER Verified by Yamil Santo on 04/07/2023. Freddy [...] documented as of this encounter Care Teams Mannequin Mounter Relationship Specialty Start Date End Date Rubén Boyle MD PCP - General Family Practice 03/08/16 Pamela Blanco, TECHNICAL SALES ASSOCIATE [facility] [address] [place], [place] [address] Referring Physician 07/13/16 Pedro Segura MD [facility] [address] [place], [place] 5[address] Nephrology 10/03/16 Freddy Craft MD 516 [facility] 2A [place], [place] [address] Assigned Gastroenterology Provider 02/08/20 Abdifatah Van MD [address] [place] [address] [address] [place] [address] Assigned Nephrology Provider 07/13/20 11/07/23 Nicole Carranza NP 420 [facility] 508 [place] [address] Assigned Heart and Vascular Provider 01/09/22 Andressa Ruiz PA-C 420 [facility] 803 [place] [address] Physician Merchandising Assistant Endocrinology, Diabetes, and Metabolism 03/01/22 [facility]én [facility] [address] [place] [address] Assigned MTM Pharmacist 02/27/22 Andressa Ruiz PA-C 420 [facility] 803 [place] [address] Assigned Endocrinology Provider 03/13/22 09/07/23 Suzan Harry MD 420 [place] [address] Nephrology 06/30/23 Yasmeen Powers MD 500 [place] [address] Nephrology 10/24/23 Yasmeen Powers MD 500 [place] [address] Assigned Nephrology Provider 11/08/23 documented as of this encounter
--- OUTSIDE RECORDS SUMMARY | 2023-12-15 10:06 | XMS_ITS | Encounter Summary ---
Author Organization [facility] Address [address] [place] [address] Care Team Providers Care Dobby Loom Chain Pegger Name Role Phone Rubén Boyle MD Primary Care Provider Pamela Blanco ROTOR CASTING MACHINE OPERATOR Unavailable ePdro Segura MD Unavailable Freddy Craft MD Unavailable [phone] Abdifatah Van MD Unavailable Nicole Carranza ROTOR CASTING MACHINE OPERATOR Unavailable Andressa Ruiz-C Unavailable Rubén Gunter [facility] Unavailable Andressa Ruiz-C Unavailable Suzan Harry MD Unavailable [phone] Yasmeen Powers MD Unavailable Yasmeen Powers MD Unavailable Encounter Details Date Type Department Care Team (Late st Contact Info) Description 03/30/2023 MyC Medical Advice [facility] [address] [place] [address] Calli Hall, RN Social History [...] documented as of this encounter Care Teams Dobby Loom Chain Pegger Relationship Specialty Start Date End Date Rubén Boyle MD PCP - General Family Practice 03/08/16 Pamela Blanco NP [facility] [address] [place], [place] [address]567 Referring Physician 07/13/16 Pedro Segura MD [facility] [address] [place], [place] 4445[address] Nephrology 10/03/16 Freddy Craft MD 516 [facility] [address] [place], [place] [address] Assigned Gastroenterology Provider 02/08/20 Abdifatah Van MD [address] [facility] [address] [place], [place] [address] Assigned Nephrology Provider 07/13/20 11/07/23 Nicole Carranza NP 420 [facility] 508 [place] [address] Assigned Heart and Vascular Provider 01/09/22 Andressa Ruiz PA-C 420 [facility] 803 [place] [address] Physician Pill Machine Operator Endocrinology, Diabetes, and Metabolism 03/01/22 Rubén Gunter [facility] [address] [place] [address] Assigned MTM Pharmacist 02/27/22 Andressa Ruiz PA-C 420 [facility] 803 [place] [address] Assigned Endocrinology Provider 03/13/22 09/07/23 Suzan Harry MD 420 [place] [address] Nephrology 06/30/23 Yasmeen Powers MD 500 [place] [address] Nephrology 10/24/23 Yasmeen Powers MD 500 [place] [address] Assigned Nephrology Provider 11/08/23 documented as of this encounter
--- OUTSIDE RECORDS SUMMARY | 2023-12-15 10:06 | XMS_ITS | Encounter Summary ---
Author Organization [place] Address [address] [place] [address] Care Team Providers Care Clinical Field Specialist Name Role Phone Rubén Boyle MD Primary Care Provider Pamela Blanco FRUIT LOADER MACHINE OPERATOR Unavailable Pedro Segura MD Unavailable [phone] Freddy Craft MD Unavailable [phone] Abdifatah Van MD Unavailable Nicole Carranza FRUIT LOADER MACHINE OPERATOR Unavailable [phone] Andressa Ruiz-C Unavailable Ashlyn Storm RN Unavailable [phone] Rubén Gunter [facility] Unavailable Andressa Ruiz-C Unavailable Suzan Harry MD Unavailable Yasmeen Powers MD Unavailable [phone] Yasmeen Powers MD Unavailable [phone] Encounter Details Date Type Department Care Team (Late st Contact Info) Description 05/27/2022 External Order Results [facility] [address] [place] [address] Outside, Provider History of liver transplant (H) [...] Comments CBC WITH PLATELETS & DIFFERENTIAL Routine 05/27/2022 10:30 AM IRONMOLDER TACROLIMUS BY TANDEM MASS SPECTROMETRY Routine 05/27/2022 10:30 AM IRONMOLDER History of liver transplant (H) MAGNESIUM Routine 05/27/2022 10:30 AM IRONMOLDER HEPATIC FUNCTION PANEL Routine 05/27/2022 10:30 AM IRONMOLDER BASIC METABOLIC PANEL Routine 05/27/2022 10:30 AM IRONMOLDER documented in this encounter Results * Tacrolimus by Tandem Mass Spectrometry (05/27/2022 10:30 AM IRONMOLDER) Pathologist [facility] Tacrolimus(FK-5 06) (External) 4.8 See scan ng/ml NON-INTERFACED (ONBASE SCANS) Blood 05/27/2022 10:3 0 AM IRONMOLDER Narrative SAMANTHA PFT - 05/31/2022 4:42 PM IRONMOLDER Verified by Melissa Otto on 05/31/2022. Freddy Dumont MD LAB - BLOOD ORD ERABLES ERICKCARISA PFT NON-INTERFACED (ONBASE SCANS) * (ABNORMAL) CBC with Platelets & Differential (05/27/2022 10:30 AM IRONMOLDER) Pathologist [facility] WBC Count (External) 2.95(L) 4.50 - 11.00 K/uL NON-INTERFACE D (ONBASE SCANS) RBC Count (External) 3.56(L) 4.30 - 5.90 m/uL NON-INTERFACE D (ONBASE SCANS) Hemoglobin (External) 11.8(L) 13.5 - 17.5 gm/dL NON-INTERFACE D (ONBASE SCANS) Hematocrit (External) 34.5(L) 37.0 - 53.0 % NON-INTERFACE D (ONBASE SCANS) MCV (External) 97 80 - 100 fL NON-INTERFACE D (ONBASE SCANS) MCH (External) 33 26 - 34 pg NON- INTERFACE D (ONBASE SCANS) MCHC (External) 34 32 - 36 gm/dL NON-INTERFACE D (ONBASE SCANS) Platelet Count (External) 131(L) 140 - 440 K/uL NON-INTERFACE D (ONBASE SCANS) RDW (External) 13.7 11.5 - 15.5 % NON-INTERFACE D (ONBASE SCANS) % Neutrophils (External) 61.9 42.0 - 72.0 % NON-INTERFACE D (ONBASE SCANS) % Lymphocytes (External) 23.1 20 - 44 % NON-INTERFACE D (ONBASE SCANS) % Monocytes (External) 9.2 0.0 - 11.0 % NON-INTERFACE D (ONBASE SCANS) % Eosinophils (External) 4.1 0.0 - 7.0 % NON-INTERFACE D (ONBASE SCANS) % Basophils (External) 0.7 0.0 - 3.0 % NON-INTERFACE D (ONBASE SCANS) Absolute Neutrophils (External) 1.80 1.7 - 7.0 K/uL NON-INTERFACE D (ONBASE SCANS) Absolute Lymphocytes (External) 0.70(L) 0.90 - 2.90 K/uL NON-INTERFACE D (ONBASE SCANS) Absolute Monocytes (External) 0.30 0.00 - 0.90 K/UL NON-INTERFACE D (ONBASE SCANS) Absolute Eosinophils (External) 0.10 0.00 - 0.50 K/uL NON-INTERFACE D (ONBASE SCANS) Absolute Basophils (External) 0.00 0.00 - 0.30 K/uL NON-INTERFACE D (ONBASE SCANS) Blood BLOOD SPECIMEN / Unknown 05/27/2022 10:30 AM NAEEM SINGH PFT - 05/31/2022 7:10 AM IRONMOLDER Verified by Pedrito Stallworth on 05/31/2022. Freddy Dumont MD LAB - BLOOD ORD ERABLES BREEZE PFT NON-INTERFACED (ONBASE SCANS) * Magnesium (05/27/2022 10:30 AM IRONMOLDER) Magnesium (External) 1.6 1.5 - 2.6 mg/dL NON-INTERFACED (ONBASE SCANS) Blood BLOOD SPECIMEN / Unknown 05/27/2022 10:30 AM IRONMOLDER Narrative BREEZE PFT - 05/31/2022 7:10 AM IRONMOLDER Verified by Pedrito Stallworth on 05/31/2022. Freddy Dumont MD LAB - BLOOD ORD ERABLES BREEZE PFT NON-INTERFACED (ONBASE SCANS) * Hepatic function panel (05/27/2022 10:30 AM IRONMOLDER) Protein Total (External) 6.7 6.0 - 8.3 g/dL NON-INTERFACED (ONBASE SCANS) Albumin (External) 4.1 3.3 - 5.0 g/dL NON-INTERFACED (ONBASE SCANS) Bilirubin Total (External) 1.1 0.1 - 1.5 mg/dL NON-INTERFACED (ONBASE SCANS) Bilirubin Direct (External) 0.3 0.0 - 0.5 mg/dL NON-INTERFACED (ONBASE SCANS) AST (External) 18 12 - 35 U/L NON-INTERFACED (ONBASE SCANS) ALT (External) 11 4 - 50 U/L NON- INTERFACED (ONBASE SCANS) Alk Phosphatase (External) 57 40 - 150 U/L NON-INTERFACED (ONBASE SCANS) Blood BLOOD SPECIMEN / Unknown 05/27/2022 10:30 AM IRONMOLDER Narrative BREEZE PFT - 05/31/2022 7:10 AM IRONMOLDER Verified by Pedrito Stallworth on 05/31/2022. Freddy Dumont MD LAB - BLOOD ORD ERABLES Performing Organization Address City/[facility]/ZIP Co de Phone Number SAMANTHA PFT NON-INTERFACED (ONBASE SCANS) * (ABNORMAL) Basic metabolic panel (05/27/2022 10:30 AM IRONMOLDER) Sodium (External) 141 135 - 149 mmol/L NON-INTERFACED (ONBASE SCANS) Potassium (External) 4.7 3.6 - 5.1 mmol/L NON-INTERFACED (ONBASE SCANS) Chloride (External) 103 96 - 114 mmol/L NON-INTERFACED (ONBASE SCANS) CO2 (External) 32 20 - 32 mmol/L NON-INTERFACED (ONBASE SCANS) Urea Nitrogen (External) 27 7 - 30 mg/dL NON-INTERFACED (ONBASE SCANS) Creatinine (External) 2.0(H) 0.5 - 1.5 mg/dL NON-INTERFACED (ONBASE SCANS) GFR Estimated (External) 35 ml/min NON-INTERFACED (ONBASE SCANS) Calcium (External) 9.0 8.4 - 10.6 mg/dL NON-INTERFACED (ONBASE SCANS) Glucose (External) 123(H) 60 - 115 mg/dL NON-INTERFACED (ONBASE SCANS) Blood BLOOD SPECIMEN / Unknown 05/27/2022 10:30 AM IRONMOLDER Narrative SAMANTHA PFT - 05/31/2022 7:10 AM IRONMOLDER Verified by Pedrito Stallworth on 05/31/2022. 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, 07/10/16 rectal swab 06/21/2016 06/21/2016 documented as of this encounter Care Teams Clinical Field Specialist Relationship Specialty Start Date End Date Rubén Boyle MD PCP - General Family Practice 03/08/16 Pamela Blanco FRUIT LOADER MACHINE OPERATOR [facility] [address] [place], [place] [address] Referring Physician 07/13/16 Pedro Segura MD [facility] [address] [place], [place] [id number] Nephrology 10/03/16 Freddy Craft MD [facility] [place] [address] Assigned Gastroenterology Provider 02/08/20 Abdifatah Van MD [address] [facility] [address] [place] [address] Assigned Nephrology Provider 07/13/20 11/07/23 Nicole Carranza NP 420 [facility] 508 [place] [address] Assigned Heart and Vascular Provider 01/09/22 Andressa Ruiz PA-C 420 [facility] 803 [place] [address] Physician Film Or Videotape Editor Endocrinology, Diabetes, and Metabolism 03/01/22 Ashlyn Storm RN [facility] 711 [place] [address] Registered Nurse 03/03/22 09/15/22 Rubén Gunter [facility] 909 [place], [place] [id number] Assigned MTM Pharmacist 02/27/22 Andressa Ruiz PA-C 420 [facility] 803 [place], [place] [address]485 Assigned Endocrinology Provider 03/13/22 09/07/23 Suzan Harry MD 420 [place], [place] [id number] Nephrology 06/30/23 Yasmeen Powers MD 500 [place], [place] [id number] Nephrology 10/24/23 Yasmeen Powers MD 500 [place], [place] [address]64[address] Assigned Nephrology Provider 11/08/23 documented as of this encounter
--- OUTSIDE RECORDS SUMMARY | 2023-12-15 10:06 | XMS_ITS | Encounter Summary ---
Author Organization [facility] Address [address] [place] [address] Care Team Providers Care Composite Bond Technician Name Role Phone Rubén Boyle MD Primary Care Provider [phone] Pamela Blanco SENIOR DATA DEVELOPER Unavailable Pedro Segura MD Unavailable [phone] Freddy Craft MD Unavailable Abdifatah Van MD Unavailable Nicole Carranza SENIOR DATA DEVELOPER Unavailable Andressa Ruiz-C Unavailable Ashlyn Storm RN Unavailable Rubén Gunter [facility] Unavailable Andressa Ruiz-C Unavailable [phone] Suzan Harry MD Unavailable [phone] Yasmeen Powers MD Unavailable Yasmeen Powers MD Unavailable [phone] Encounter Details Date Type Department Care Team (Late st Contact Info) Description 05/12/2022 [facility] Medical Advice [facility] Specialty [facility] 909 [facility] 3rd Floor Clinic [address]A [place] [address] Ashlyn Storm, RN [facility] 711 [place], [place] [address] Social History Tobacco Use Types Packs/Day Years [...] documented as of this encounter Care Teams Composite Bond Technician Relationship Specialty Start Date End Date Rubén Boyle MD PCP - General Family Practice 03/08/16 Pamela Blanco NP [facility] [address] [place] [address] Referring Physician 07/13/16 Pedro Segura MD [facility] [address] [place], [place] [address] Nephrology 10/03/16 Freddy Craft MD [address] [facility] 2A [place] [address] Assigned Gastroenterology Provider 02/08/20 Abdifatah Van MD 717 [facility] [address] [place] [address] Assigned Nephrology Provider 07/13/20 11/07/23 Nicole Carranza NP 420 [facility] 508 [place] [address] Assigned Heart and Vascular Provider 01/09/22 Andressa Ruiz PA-C 420 [facility] 803 [place] [address] Physician Blow Molder Endocrinology, Diabetes, and Metabolism 03/01/22 Ashlyn Storm RN [facility] 711 [place] [address] Registered Nurse 03/03/22 09/15/22 Rubén Gunter [facility] [address] [place] [address] Assigned MTM Pharmacist 02/27/22 Andressa Ruiz PA-C [address] [place], [place] [address] [place] [address] Assigned Endocrinology Provider 03/13/22 09/07/23 Suzan Harry MD [address] [place] [address] Nephrology 06/30/23 Yasmeen Powers MD 500 [place], [place] [address] Nephrology 10/24/23 Yasmeen Powers MD 500 [place] [address] Assigned Nephrology Provider 11/08/23 documented as of this encounter
--- OUTSIDE RECORDS SUMMARY | 2023-12-15 10:06 | XMS_ITS | Encounter Summary ---
Author Organization [facility] Address [address] [place] [address] Care Team Providers Care Stereo Equipment Repairer Name Role Phone Rubén Boyle MD Primary Care Provider Pamela lBanco HUMIDIFIER ATTENDANT Unavailable Pedro Segura MD Unavailable Freddy Craft MD Unavailable [phone] Abdifatah Van MD Unavailable Nicole Carranza HUMIDIFIER ATTENDANT Unavailable Andressa Ruiz-C Unavailable Rubén Gunter [facility] Unavailable Andressa Ruiz-C Unavailable Suzan Harry MD Unavailable [phone] Yasmeen Powers MD Unavailable Yasmeen Powers MD Unavailable [phone] Encounter Details Date Type Department Care Team (Late st Contact Info) Description 01/04/2023 MyC Medical Advice [facility] 909 [place] [address] Calli Hall, RN Social History [...] documented as of this encounter Care Teams Stereo Equipment Repairer Relationship Specialty Start Date End Date Rubén Boyle MD PCP - General Family Practice 03/08/16 Pamela Blanco NP [facility] [address] [place], [place] [address] Referring Physician 07/13/16 Pedro Segura MD [facility] [address] [place], [place] 40[address] Nephrology 10/03/16 Freddy Craft MD 516 [facility] [address] [place], [place] [address] Assigned Gastroenterology Provider 02/08/20 Abdifatah Van MD 717 [facility] [address] [place], [place] [address] Assigned Nephrology Provider 07/13/20 11/07/23 Nicole Carranza NP 420 [facility] 508 [place] [address] Assigned Heart and Vascular Provider 01/09/22 Andressa Ruiz PA-C 420 [facility] 803 [place] [address] Physician Rocket Propellant Plant Supervisor Endocrinology, Diabetes, and Metabolism 03/01/22 Rubén Gunter [facility] [address] [place] [address] Assigned MTM Pharmacist 02/27/22 Andressa Ruiz PA-C 420 [facility] 803 [place] [address] Assigned Endocrinology Provider 03/13/22 09/07/23 Suzan Harry MD 420 [place] [address] Nephrology 06/30/23 Yasmeen Powers MD 500 [place] [address] Nephrology 10/24/23 Yasmeen Powers MD 500 [place] [address] Assigned Nephrology Provider 11/08/23 documented as of this encounter
--- OUTSIDE RECORDS SUMMARY | 2023-12-15 10:06 | XMS_ITS | Encounter Summary ---
Author Organization [place] Address [address] [place] [address] Care Team Providers Care Grab Setter Name Role Phone Rubén Boyle MD Primary Care Provider Pamlea Blanco BUFFING WHEEL OPERATOR Unavailable Pedro Segura MD Unavailable Freddy Craft MD Unavailable [phone] Abdifatah Van MD Unavailable Nicole Carranza BUFFING WHEEL OPERATOR Unavailable Andressa Ruiz-C Unavailable Rubén Gunter [facility] Unavailable Andressa Ruiz-C Unavailable [phone] Suzan Harry MD Unavailable [phone] Yasmeen Powers MD Unavailable Yasmeen Powers MD Unavailable [phone] Encounter Details Date Type Department Care Team (Late st Contact Info) Description 09/27/2022 MyC Medical Advice [facility] [address] [place] [address] Lashanda Hsieh, [facility] Social History Tobacco Use Types Packs/Day Years Used Date Smoking Tobacco: Former Cigarettes Q uit: 04/18/1985 Smokeless Tobacco: Never Comments:quit years ago Alcohol Use Standard Drinks/Week Comments No 0 (1 standard drink = 0.6 oz pur e alcohol) quit Dec 2015 PHQ-2 Answer Date Recorded PHQ-2 Score 0 08/30/2022 Sex and Gender Information Value Date Recorded [...] documented as of this encounter Care Teams Grab Setter Relationship Specialty Start Date End Date Rubén Boyle MD PCP - General Family Practice 03/08/16 Pamela Blanco BUFFING WHEEL OPERATOR [facility] [address] [place], [place] [address] Referring Physician 07/13/16 Pedro Segura MD [facility] [address] [place], [place] [address] Nephrology 10/03/16 Freddy Craft MD [address] [facility] [place], [place] [address] Assigned Gastroenterology Provider 02/08/20 Abdifatah Van MD 717 [facility] [address] [facility] [address] [place] [address] Assigned Nephrology Provider 07/13/20 11/07/23 Nicole Carranza NP 420 [facility] 508 [place] [address] Assigned Heart and Vascular Provider 01/09/22 Andressa Ruiz PA-C 420 [facility] 803 [place] [address] Physician Inoculator Endocrinology, Diabetes, and Metabolism 03/01/22 [facility] [address] [place] [address] Assigned MTM Pharmacist 02/27/22 Andressa Ruiz PA-C 420 [facility] 803 [place] [address] Assigned Endocrinology Provider 03/13/22 09/07/23 Suzan Harry MD 420 [place] [address] Nephrology 06/30/23 Yasmeen Powers MD 500 [place] [address] Nephrology 10/24/23 Yasmeen Powers MD 500 [place] [address] Assigned Nephrology Provider 11/08/23 documented as of this encounter
--- OUTSIDE RECORDS SUMMARY | 2023-12-15 10:06 | XMS_ITS | Encounter Summary ---
Author Organization [place] Address [address] [place] [address] Care Team Providers Care Stratigraphy Teacher Name Role Phone Rubén Boyle MD Primary Care Provider Pamela Blanco ASSIGNMENT DESK EDITOR Unavailable Pedro Segura MD Unavailable Freddy Craft MD Unavailable [phone] Abdifatah Van MD Unavailable Nicole Carranza ASSIGNMENT DESK EDITOR Unavailable [phone] Andressa Ruiz-C Unavailable Ashlyn Storm RN Unavailable Rubén Gunter [facility] Unavailable Andressa Ruiz-C Unavailable Suzan Harry MD Unavailable [phone] Yasmeen Powers MD Unavailable [phone] Yasmeen Powers MD Unavailable [phone] Encounter Details Date Type Department Care Team (Late st Contact Info) Description 08/31/2022 [facility] [address] [address] [facility] Social History Tobacco Use Types Packs/Day Years [...] suspected to have Coronavirus/COVID-19? No / Unsure 08/05/2022 9:43 AM CDT documented as of this encounter Plan of Treatment Not on file documented as of this encounter Visit Diagnoses Not on filedocumented in this encounter Additional Health Concerns Infection Onset Date Last Indicated Resolved Time 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/16 urine, 07/10/16 rectal swab 06/21/2016 06/21/2016 documented as of this encounter Care Teams Stratigraphy Teacher Relationship Specialty Start Date End Date Rubén Boyle MD PCP - General Family Practice 03/08/16 Pamela Blanco NP [facility] [address] [place] [address] Referring Physician 07/13/16 Pedro Segura MD [facility] [address] [place] [address] Nephrology 10/03/16 Freddy Craft MD [address] 7[address] Assigned Gastroenterology Provider 02/08/20 Abdifatah Van MD [address] [place] [address] [address] [place] [address] Assigned Nephrology Provider 07/13/20 11/07/23 Nicole Carranza NP 420 [facility] 508 [place] [address] Assigned Heart and Vascular Provider 01/09/22 Andressa Ruiz PA-C 420 [facility] 803 [place] [address] Physician Trim Operator Endocrinology, Diabetes, and Metabolism 03/01/22 Ashlyn Storm RN [facility] 711 [place] [address] Registered Nurse 03/03/22 09/15/22 Rubén Gunter [facility] [address] [place] [address] Assigned MTM Pharmacist 02/27/22 Andressa Ruiz PA-C 420 [facility] 803 [place] [address] Assigned Endocrinology Provider 03/13/22 09/07/23 Suzan Harry MD 420 [place] [address] Nephrology 06/30/23 Yasmeen Powers MD 500 [place], [place] [address] Nephrology 10/24/23 Yasmeen Powers MD 500 [place] [address] Assigned Nephrology Provider 11/08/23 documented as of this encounter
--- OUTSIDE RECORDS SUMMARY | 2023-12-15 10:06 | XMS_ITS | Encounter Summary ---
Author Organization [place] Address [address] [place] [address] Care Team Providers Care Chocolate Packer Name Role Phone Rubén Boyle MD Primary Care Provider Pamela Blanco COMMUNICATIONS AND SIGNALS SUPERVISOR Unavailable Pedro Segura MD Unavailable Freddy Craft MD Unavailable Abdifatah Van MD Unavailable Nicole Carranza COMMUNICATIONS AND SIGNALS SUPERVISOR Unavailable [phone] Andressa Ruiz-C Unavailable [phone] Ashlyn Storm RN Unavailable Rubén Gunter [facility] Unavailable Andressa Ruiz-C Unavailable Suzan Harry MD Unavailable [phone] Yasmeen Powers MD Unavailable [phone] Yasmeen Powers MD Unavailable [phone] Encounter Details Date Type Department Care Team (Late st Contact Info) Description 03/03/2022 [facility]ology [facility] [address] [place] [address] [facility] Social History Tobacco Use Types [...] Coronavirus/COVID-19? No / Unsure 02/24/2022 7:54 AM DYE PENETRANT TESTING TECHNICIAN documented as of this encounter Plan of Treatment Not on file documented as of this encounter Visit Diagnoses Not on filedocumented in this encounter Additional Health Concerns Infection Onset Date Last Indicated Resolved Time 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/16 urine, 07/10/16 rectal swab 06/21/2016 06/21/2016 documented as of this encounter Care Teams Chocolate Packer Relationship Specialty Start Date End Date Rubén Boyle MD PCP - General Family Practice 03/08/16 Pamela Blanco NP [facility] [address] [place] [address] Referring Physician 07/13/16 Pedro Segura MD [facility] [address] [place] [address] Nephrology 10/03/16 Freddy Craft MD [address] [place] [address] [address] Assigned Gastroenterology Provider 02/08/20 Abdifatah Van MD 717 [facility] [address] [place] [address] Assigned Nephrology Provider 07/13/20 11/07/23 Nicole Carranza NP 420 [facility] 508 [place] [address] Assigned Heart and Vascular Provider 01/09/22 Andressa Ruiz PA-C 420 [facility] 803 [place] [address] Physician Manager Social Responsibility Endocrinology, Diabetes, and Metabolism 03/01/22 Ashlyn Storm, RN [facility] 711 [place] [address] Registered Nurse 03/03/22 09/15/22 Rubén Gunter [facility] [address] [place] [address] Assigned MTM Pharmacist 02/27/22 Andressa Ruiz PA-C 420 [facility] 803 [place] [address] Assigned Endocrinology Provider 03/13/22 09/07/23 Suzan Harry MD 420 [place] [address] Nephrology 06/30/23 Yasmeen Powers MD 500 [place], [place] [address] Nephrology 10/24/23 Yasmeen Powers MD 500 [place] [address] Assigned Nephrology Provider 11/08/23 documented as of this encounter
--- OUTSIDE RECORDS SUMMARY | 2023-12-15 10:06 | XMS_ITS | Encounter Summary ---
Author Organization [place] Address [address] [place] [address] Care Team Providers Care Punch Press Operator Helper Name Role Phone uRbén oByle MD Primary Care Provider Pamela Blanco LOBBY PORTER Unavailable [phone] Pedro Segura MD Unavailable Freddy Craft MD Unavailable Abdifatah Van MD Unavailable Nicole Carranza [facility] Unavailable [phone] Andressa Ruiz-C Unavailable [phone] Ashlyn Storm RN Unavailable [phone] Rubén Gunter [facility] Unavailable Andressa Ruiz-C Unavailable Suzan Harry MD Unavailable [phone] Yasmeen Powers MD Unavailable [phone] Yasmeen Powers MD Unavailable [phone] Encounter Details Date Type Department Care Team (Late st Contact Info) Description 05/17/2022 External Order Results [facility] [address] [place] [address] Outside, Provider History of liver transplant (H) [...] Comments CBC WITH PLATELETS & DIFFERENTIAL Routine 05/17/2022 3:24 PM UPTWIST SPINNER TACROLIMUS BY TANDEM MASS SPECTROMETRY Routine 05/17/2022 3:24 PM UPTWIST SPINNER MAGNESIUM Routine 05/17/2022 3:24 PM UPTWIST SPINNER HEPATIC FUNCTION PANEL Routine 05/17/2022 3:24 PM UPTWIST SPINNER History of liver transplant (H) BASIC METABOLIC PANEL Routine 05/17/2022 3:24 PM UPTWIST SPINNER History of liver transplant (H) documented in this encounter Results * Tacrolimus by Tandem Mass Spectrometry (05/17/2022 3:24 PM UPTWIST SPINNER) Tacrolimus(FK-5 06) (External) 7.8 5.0 - 15.0 ng/mL NON-INTERFACED (ONBASE SCANS) Blood 05/17/2022 3:24 PM UPTWIST SPINNER Narrative ERICKEZKayli PFT - 05/24/2022 2:19 PM UPTWIST SPINNER Verified by Pedrito Stallworth on 05/24/2022. Freddy Dumont MD LAB - BLOOD ORD ERABLES SAMANTHA PFT NON-INTERFACED (ONBASE SCANS) * (ABNORMAL) Magnesium (05/17/2022 3:24 PM UPTWIST SPINNER) Magnesium (External) 1.4(L) 1.5 - 2.6 mg/dL NON-INTERFACED (ONBASE SCANS) Blood BLOOD SPECIMEN / Unknown 05/17/2022 3:24 PM UPTWIST SPINNER Narrative SAMANTHA PFT - 05/19/2022 2:28 PM UPTWIST SPINNER Verified by Melissa Otto on 05/19/2022. Freddy Dumont MD LAB - BLOOD ORD ERABLES SAMANTHA PFT NON-INTERFACED (ONBASE SCANS) * (ABNORMAL) CBC with Platelets & Differential (05/17/2022 3:24 PM UPTWIST SPINNER) WBC Count (External) 4.48(L) 4.50 - 11.00 K/uL NON-INTERFACE D (ONBASE SCANS) RBC Count (External) 3.69(L) 4.30 - 5.90 m/uL NON-INTERFACE D (ONBASE SCANS) Hemoglobin (External) 12.4(L) 13.5 - 17.5 gm/dL NON-INTERFACE D (ONBASE SCANS) Hematocrit (External) 34.5(L) 37.0 - 53.0 % NON-INTERFACE D (ONBASE SCANS) MCV (External) 94 80 - 100 fL NON-INTERFACE D (ONBASE SCANS) MCH (External) 34 26 - 34 pg NON- INTERFACE D (ONBASE SCANS) MCHC (External) 36 32 - 36 gm/dL NON-INTERFACE D (ONBASE SCANS) Platelet Count (External) 128(L) 140 - 440 K/uL NON-INTERFACE D (ONBASE SCANS) RDW (External) 13.3 11.5 - 15.5 % NON-INTERFACE D (ONBASE SCANS) % Neutrophils (External) 76.8(H) 42.0 - 72.0 % NON-INTERFACE D (ONBASE SCANS) % Lymphocytes (External) 13.4(L) 20 - 44 % NON-INTERFACE D (ONBASE SCANS) % Monocytes (External) 8.3 0.0 - 11.0 % NON-INTERFACE D (ONBASE SCANS) % Eosinophils (External) 1.1 0.0 - 7.0 % NON-INTERFACE D (ONBASE SCANS) % Basophils (External) 0.2 0.0 - 3.0 % NON-INTERFACE D (ONBASE SCANS) Absolute Neutrophils (External) 3.40 1.7 - 7.0 K/uL NON-INTERFACE D (ONBASE SCANS) Absolute Lymphocytes (External) 0.60(L) 0.90 - 2.90 K/uL NON-INTERFACE D (ONBASE SCANS) Absolute Monocytes (External) 0.40 0.00 - 0.90 K/uL NON-INTERFACE D (ONBASE SCANS) Absolute Eosinophils (External) 0.00 0.00 - 0.50 K/uL NON-INTERFACE D (ONBASE SCANS) Absolute Basophils (External) 0.00 0.00 - 0.30 K/uL NON-INTERFACE D (ONBASE SCANS) Method (External) Auto NON-INTERFACE D (ONBASE SCANS) Blood BLOOD SPECIMEN / Unknown 05/17/2022 3:24 PM UPTWIST SPINNER Narrative SAMANTHA PFT - 05/19/2022 2:28 PM UPTWIST SPINNER Verified by Melissa Otto on 05/19/2022. Freddy Dumont MD LAB - BLOOD ORD ERABLES SAMANTHA PFT NON-INTERFACED (ONBASE SCANS) * (ABNORMAL) Basic metabolic panel (05/17/2022 3:24 PM UPTWIST SPINNER) Sodium (External) 137 135 - 149 mmol/L NON-INTERFACED (ONBASE SCANS) Potassium (External) 4.8 3.6 - 5.1 mmol/L NON-INTERFACED (ONBASE SCANS) Chloride (External) 99 96 - 114 mmol/L NON-INTERFACED (ONBASE SCANS) CO2 (External) 31 20 - 32 mmol/L NON-INTERFACED (ONBASE SCANS) Urea Nitrogen (External) 36(H) 7 - 30 mg/dL NON-INTERFACED (ONBASE SCANS) Creatinine (External) 2.5(H) 0.5 - 1.5 mg/dL NON-INTERFACED (ONBASE SCANS) GFR Estimated (External) 27 ml/min NON-INTERFACED (ONBASE SCANS) Calcium (External) 9.0 8.4 - 10.6 mg/dL NON-INTERFACED (ONBASE SCANS) Glucose (External) 264(H) 60 - 115 mg/dL NON-INTERFACED (ONBASE SCANS) Blood 05/17/2022 3:24 PM UPTWIST SPINNER Narrative BREEZE PFT - 05/19/2022 2:28 PM UPTWIST SPINNER Verified by Melissa Otto on 05/19/2022. Freddy Dumont MD LAB - BLOOD [employer] SAMANTHA PFT NON-INTERFACED (ONBASE SCANS) * (ABNORMAL) Hepatic function panel (05/17/2022 3:24 PM UPTWIST SPINNER) Protein Total (External) 6.7 6.0 - 8.3 g/dL NON-INTERFACE D (ONBASE SCANS) Albumin (External) 4.2 3.3 - 5.0 g/dL NON-INTERFACE D (ONBASE SCANS) Bilirubin Total (External) 1.8(H) 0.1 - 1.5 mg/dL NON-INTERFACE D (ONBASE SCANS) Bilirubin Direct (External) 0.2 0.0 - 0.5 mg/dL NON-INTERFACE D (ONBASE SCANS) AST (External) 16 12 - 35 U/L NON-INTERFACE D (ONBASE SCANS) ALT (External) 11 4 - 50 U/L NON- INTERFACE D (ONBASE SCANS) Alk Phosphatase (External) 56 40 - 150 U/L NON-INTERFACE D (ONBASE SCANS) Blood 05/17/2022 3:24 PM UPTWIST SPINNER Narrative BREEZE PFT - 05/19/2022 2:28 PM UPTWIST SPINNER Verified by Melissa Otto on 05/19/2022. Freddy Dumont MD LAB - BLOOD [employer] SAMANTHA PFT NON-INTERFACED (ONBASE SCANS) documented in this encounter Visit Diagnoses Diagnosis History of liver transplant (H) Liver replaced by transplant documented in this encounter Additional Health Concerns Infection Onset Date Last Indicated Resolved Time 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/16 urine, 07/10/16 rectal swab 06/21/2016 06/21/2016 documented as of this encounter Care Teams Punch Press Operator Helper Relationship Specialty Start Date End Date Boyle, Frank, MD PCP - General Family Practice 03/08/[address] [facility] [address] [place] [address] Referring Physician 07/13/[address] [facility] [address] [place], [place] [address] Nephrology 10/03/16 Freddy Craft MD 516 [facility] 2[facility] [place], [place] [address] Assigned Gastroenterology Provider 02/08/20 Abdifatah Van MD 717 [facility] [address] [place], [place] [address] Assigned Nephrology Provider 07/13/20 11/07/23 Nicole Carranza NP 420 [facility] [address] [place], [place] [address] Assigned Heart and Vascular Provider 01/09/22 Andressa Ruiz PA-C 420 [facility] 803 [place], [place] [address] Physician Slotter Operator Helper Endocrinology, Diabetes, and Metabolism 03/01/22 Ashlyn Storm, RN [facility] 711 [place], [place] 8440[address] Registered Nurse 03/03/22 09/15/22 Rubén Gunter [facility] 909 [place] [address] Assigned MTM Pharmacist 02/27/22 Andressa Ruiz PA-C 420 [facility] 803 [place] [address] Assigned Endocrinology Provider 03/13/22 09/07/23 Suzan Harry MD 420 [place] [address] Nephrology 06/30/23 Yasmeen Powers MD 500 [place] [address] Nephrology 10/24/23 Yasmeen Powers MD 500 [place] [address] Assigned Nephrology Provider 11/08/23 documented as of this encounter
--- OUTSIDE RECORDS SUMMARY | 2023-12-15 10:06 | XMS_ITS | Encounter Summary ---
Author Organization [place] Address [address] [place] [address] Care Team Providers Care Brown Sourer Name Role Phone Rubén Boyle MD Primary Care Provider [phone] Pamela Blanco DOPE POURER Unavailable Pedro Segura MD Unavailable Freddy Craft MD Unavailable Abdifatah Van MD Unavailable Nicole Carranza DOPE POURER Unavailable [phone] Andressa Ruiz-C Unavailable Ashlyn Storm RN Unavailable Rubén Gunter [facility] Unavailable Andressa Ruiz-C Unavailable Suzan Harry MD Unavailable [phone] Yasmeen Powers MD Unavailable [phone] Yasmeen Powers MD Unavailable [phone] Encounter Details Date Type Department Care Team (Late st Contact Info) Description 07/05/2022 External Order Results [facility] [address] [place] [address] Outside, Provider Social History Tobacco Use Types [...] Comments CBC WITH PLATELETS & DIFFERENTIAL Routine 07/05/2022 1:38 PM CDT TACROLIMUS BY TANDEM MASS SPECTROMETRY Routine 07/05/2022 1:38 PM CDT BASIC METABOLIC PANEL Routine 07/05/2022 1:38 PM CDT documented in this encounter Results * Tacrolimus by Tandem Mass Spectrometry (07/05/2022 1:38 PM CDT) Pathologist [facility] Tacrolimus(FK-5 06) (External) 7.8 5.0 - 15.0 ng/ml NON-INTERFACED (ONBASE SCANS) Blood 07/05/2022 1:38 PM CDT Narrative SAMANTHA PFT - 07/09/2022 8:50 AM CDT Verified by Pedrito Stallworth on 07/09/2022. Freddy Dumont MD LAB - BLOOD ORD ERABLES SAMANTHA PFT NON-INTERFACED (ONBASE SCANS) * (ABNORMAL) CBC with Platelets & Differential (07/05/2022 1:38 PM CDT) WBC Count (External) 2.20(L) 4.50 - 11.00 K/uL NON-INTERFACE D (ONBASE SCANS) RBC Count (External) 3.24(L) 4.30 - 5.90 m/uL NON-INTERFACE D (ONBASE SCANS) Hemoglobin (External) 11.3(L) 13.5 - 17.5 gm/dL NON-INTERFACE D (ONBASE SCANS) Hematocrit (External) 32.0(L) 37.0 - 53.0 % NON-INTERFACE D (ONBASE SCANS) MCV (External) 99 80 - 100 fL NON-INTERFACE D (ONBASE SCANS) MCH (External) 35(H) 26 - 34 pg NON- INTERFACE D (ONBASE SCANS) MCHC (External) 35 32 - 36 gm/dL NON-INTERFACE D (ONBASE SCANS) Platelet Count (External) 168 140 - 440 K/uL NON-INTERFACE D (ONBASE SCANS) RDW (External) 15.5 11.5 - 15.5 % NON-INTERFACE D (ONBASE SCANS) % Neutrophils (External) 73.2(H) 42.0 - 72.0 % NON-INTERFACE D (ONBASE SCANS) % Lymphocytes (External) 13.6(L) 20 - 44 % NON-INTERFACE D (ONBASE SCANS) % Monocytes (External) 6.8 0.0 - 11.0 % NON-INTERFACE D (ONBASE SCANS) % Eosinophils (External) 5.9 0.0 - 7.0 % NON-INTERFACE D (ONBASE SCANS) % Basophils (External) 0.5 0.0 - 3.0 % NON-INTERFACE D (ONBASE SCANS) Absolute Neutrophils (External) 1.60(L) 1.7 - 7.0 K/uL NON-INTERFACE D (ONBASE SCANS) Absolute Lymphocytes (External) 0.30(L) 0.90 - 2.90 K/uL NON-INTERFACE D (ONBASE SCANS) Absolute Monocytes (External) 0.10 0.00 - 0.90 K/UL NON-INTERFACE D (ONBASE SCANS) Absolute Eosinophils (External) 0.10 0.00 - 0.50 K/uL NON-INTERFACE D (ONBASE SCANS) Absolute Basophils (External) 0.00 0.00 - 0.30 K/uL NON-INTERFACE D (ONBASE SCANS) Method (External) Auto NON-INTERFACE D (ONBASE SCANS) Blood BLOOD SPECIMEN / Unknown 07/05/2022 1:38 PM CDT Subhash KEMP - 07/07/2022 5:46 AM CDT Verified by Cruzito Marlow on 07/07/2022. Freddy Ballard Page Tim MD LAB - BLOOD ORD ERABLES Performing Organization Address [facility]/ZIP Co de Phone Number BRECARISA PFT NON-INTERFACED (ONBASE SCANS) * (ABNORMAL) Basic metabolic panel (07/05/2022 1:38 PM CDT) Sodium (External) 134(L) 135 - 149 mmol/L NON-INTERFACED (ONBASE SCANS) Potassium (External) 4.4 3.6 - 5.1 mmol/L NON-INTERFACED (ONBASE SCANS) Chloride (External) 106 96 - 114 mmol/L NON-INTERFACED (ONBASE SCANS) CO2 (External) 24 20 - 32 mmol/L NON-INTERFACED (ONBASE SCANS) Urea Nitrogen (External) 12 7 - 30 mg/dL NON-INTERFACED (ONBASE SCANS) Creatinine (External) 1.6(H) 0.5 - 1.5 mg/dL NON-INTERFACED (ONBASE SCANS) GFR Estimated (External) 46 ml/min NON-INTERFACED (ONBASE SCANS) Calcium (External) 9.0 8.4 - 10.6 mg/dL NON-INTERFACED (ONBASE SCANS) Glucose (External) 113 60 - 115 mg/dL NON-INTERFACED (ONBASE SCANS) Blood BLOOD SPECIMEN / Unknown 07/05/2022 1:38 PM CDT Narrative SAMANTHA PFT - 07/07/2022 5:46 AM CDT Verified by Cruzito Marlow on 07/07/2022. Freddy Dumont MD LAB - BLOOD ORD ERABLES SAMANTHA PFT NON-INTERFACED (ONBASE SCANS) documented in this encounter Visit Diagnoses Not on filedocumented in this encounter Additional Health Concerns Infection Onset Date Last Indicated Resolved Time 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/16 urine, 07/10/16 rectal swab 06/21/2016 06/21/2016 documented as of this encounter Care Teams Brown Sourer Relationship Specialty Start Date End Date Rubén Boyle MD PCP - General Family Practice 03/08/16 Pamela Blanco DOPE POURER [facility] [address] [place], [place] [address] Referring Physician 07/13/16 Pedro Segura MD [facility] [address] [place], [place] [id number] Nephrology 10/03/16 Freddy Craft MD 516 [facility] 2[facility] [place] [address] Assigned Gastroenterology Provider 02/08/20 Abdifatah Van MD 717 [facility] [address] [place] [address] Assigned Nephrology Provider 07/13/20 11/07/23 Nicole Carranza NP 420 [facility] [address] [place] [address] Assigned Heart and Vascular Provider 01/09/22 Andressa Ruiz PA-C 420 [facility] 803 [place] [address] Physician Resaw Tailer Endocrinology, Diabetes, and Metabolism 03/01/22 Ashlyn Storm RN [facility] 711 [place] [address] Registered Nurse 03/03/22 09/15/22 Rubén Gunter [facility] 909 [place], [place] [id number] Assigned MTM Pharmacist 02/27/22 Andressa Ruiz PA-C 420 [facility] 803 [place], [place] [address] Assigned Endocrinology Provider 03/13/22 09/07/23 Suzan Harry MD 420 [place], [place] [id number] Nephrology 06/30/23 Yasmeen Powers MD 500 [place], [place] [id number] Nephrology 10/24/23 Yasmeen Powers MD 500 [place], [place] [id number] Assigned Nephrology Provider 11/08/23 documented as of this encounter
--- OUTSIDE RECORDS SUMMARY | 2023-12-15 10:07 | XMS_ITS | Encounter Summary ---
Author Organization [place] Address [address] [place] [address] Care Team Providers Care Tree Doctor Name Role Phone Rubén Boyle MD Primary Care Provider Pamela Blanco DERMATOLOGY PHYSICIAN ASSISTANT Unavailable [phone] Pedro Segura MD Unavailable Freddy Craft MD Unavailable [phone] Abdifatah Van MD Unavailable Nicole Carranza DERMATOLOGY PHYSICIAN ASSISTANT Unavailable [phone] Andressa Ruiz-C Unavailable Ashlyn Storm RN Unavailable [phone] Rubén Gunter [facility] Unavailable Andressa Ruiz-C Unavailable Suzan Harry MD Unavailable [phone] Yasmeen Powers MD Unavailable [phone] Yasmeen Powers MD Unavailable [phone] Reason for Visit * Reason Onset Date Comments Appointment 12/16/2021 Appt for dx Aort ic Stenosis Encounter Details Date Type Department Care Team (Late st Contact Info) Description 12/16/[address] [place] [address] None Appointment (Appt for dx Aortic Stenosis) Social History Tobacco Use Types Packs/Day Years Used Date Smoking Tobacco: Former Cigarettes Q uit: 04/18/1985 Smokeless Tobacco: Never Comments:quit years ago Alcohol Use Standard Drinks/Week Comments No 0 (1 standard drink = 0.6 oz pur e alcohol) quit Dec 2015 PHQ-2 Answer Date Recorded PHQ-2 Total Score (12-17 Yea rs)- Positive if 3 or more points; Administer PHQ-A if positive 0 12/17/2021 Sex and Gender Information Value Date Recorded Sex Assigned at Not on file Gender Identity Not on file Sexual Orientation Not on file documented as of this encounter Miscellaneous Notes * Telephone Encounter - Ara Dockery CMA - 12/17/2021 9:32 AM CDT Left Vm that we have received a referral to see our valve clinic and left contact information to call me back to help schedule. * Telephone Encounter - Joshua Thayer - 12/16/2021 1:40 PM CDT Health Call Center Phone Message May a detailed message be left on voicemail: yes Reason for Call: Appointment Intake Referring Provider Name: Abdifatah Van MD Diagnosis and/or Symptoms: Aortic stenosis [I35.0] ?? Per order notes aortic stenosis, may need valve replacement. Echo done at [facility] 10/24/21 Did offer if pt wants appt at [place] but he req for [facility] aware to wait for clinic to call and help schedule. Action Taken: Message routed to: [facility] Cardiology Travel Screening: Not Applicable 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, 07/10/16 rectal swab 06/21/2016 06/21/2016 documented as of this encounter Care Teams Tree Doctor Relationship Specialty Start Date End Date Rubén Boyle MD PCP - General Family Practice 03/08/16 Pamela Blanco, DERMATOLOGY PHYSICIAN ASSISTANT [facility] [address] [place] [address] Referring Physician 07/13/16 Pedro Segura MD [facility] [address] [place], [place] [id number] Nephrology 10/03/16 Freddy Craft MD 516 [facility] [place], [place] [address] Assigned Gastroenterology Provider 02/08/20 Abdifatah Van MD 717 [facility] [address] [place], [place] [address]484 Assigned Nephrology Provider 07/13/20 11/07/23 Nicole Carranza NP 420 [facility] 508 [place], [place] [address] Assigned Heart and Vascular Provider 01/09/22 Andressa Ruiz PA-C 420 [facility] 803 [place], [place] [address] Physician Rn Documentation Specialist Endocrinology, Diabetes, and Metabolism 03/01/22 Ashlyn Storm, RN [facility] 711 [place], [place] [address] Registered Nurse 03/03/22 09/15/22 Rubén Gunter [facility] 909 [place] [address] Assigned MTM Pharmacist 02/27/22 Andressa Ruiz PA-C 420 [facility] 803 [place], [place] [address] Assigned Endocrinology Provider 03/13/22 09/07/23 Suzan Harry MD 420 [place], [place] [address] Nephrology 06/30/23 Yasmeen Powers MD 500 [place] [address] Nephrology 10/24/23 Yasmeen Powers MD 500 [place] [address] Assigned Nephrology Provider 11/08/23 documented as of this encounter
--- OUTSIDE RECORDS SUMMARY | 2023-12-15 10:07 | XMS_ITS | Encounter Summary ---
Author Organization [place] Address [address] [place] [address] Care Team Providers Care Mica Plate Layer Name Role Phone Rubén Boyle MD Primary Care Provider Pamela Blanco LAUNDRY SUPERVISOR Unavailable Pedro Segura MD Unavailable Freddy Craft MD Unavailable [phone] Abdifatah Van MD Unavailable Nicole Carranza LAUNDRY SUPERVISOR Unavailable [phone] Andressa Ruiz-C Unavailable Ashlyn Storm RN Unavailable Rubén Gunter [facility] Unavailable Andressa Ruiz-C Unavailable Suzan Harry MD Unavailable [phone] Yasmeen Powers MD Unavailable [phone] Yasmeen Powers MD Unavailable [phone] Encounter Details Date Type Department Care Team (Late st Contact Info) Description 09/14/2021 External Order Results [facility] [address] [place] [address] Outside, Provider Status post kidney transplant; History of liver transplant (H) Social History Tobacco Use Types Packs/Day Years Used Date Smoking Tobacco: Former Cigarettes Q uit: 04/18/1985 Smokeless Tobacco: Never Comments:quit years ago Alcohol Use Standard Drinks/Week Comments No 0 (1 standard drink = 0.6 oz pur e alcohol) quit Dec 2015 PHQ-2 Answer Date Recorded PHQ-2 Score 0 08/06/2020 Sex and Gender Information Value Date Recorded Sex Assigned at Not on file Gender Identity Not on file Sexual Orientation Not on file COVID-19 Exposure Response Date Recorded In the last 10 days, have yo u been in contact with someone who was confirmed or suspected to have Coronavirus/COVID-19? No / Unsure 09/08/2021 3:05 PM CDT documented as of this encounter Plan of Treatment Not on file documented as of this encounter Procedures Procedure Name Priority Date/Time Associated Diagnosis Comments TACROLIMUS BY TANDEM MASS SPECTROMETRY Routine 09/14/2021 8:00 PM CDT History of liver transplant (H) BASIC METABOLIC PANEL Routine 09/14/2021 8:00 PM CDT Status post kidney transplant CBC WITH PLATELETS Routine 09/14/2021 8: 00 PM CDT Status post kidney transplant documented in this encounter Results * Tacrolimus by Tandem Mass Spectrometry (09/14/2021 8:00 PM CDT) Tacrolimus(FK-5 06) (External) 5.0 ng/mL NON-INTERFACE D (ONBASE SCANS) Blood 09/14/2021 8:00 PM CDT Narrative SAMANTHA PFT - 09/25/2021 10:20 AM CDT Verified by Brisa Jackson on 09/25/2021. Freddy Dumont MD LAB - BLOOD ORD ERABLES [facility] PFT NON-INTERFACED (ONBASE SCANS) * (ABNORMAL) CBC with platelets (09/14/2021 8:00 PM CDT) WBC Count (External) 2.75(L) 5.00 - 10.00 K/UL NON-INTERFACE D (ONBASE SCANS) RBC Count (External) 3.31(L) 4.32 - 5.72 M/UL NON-INTERFACE D (ONBASE SCANS) Hemoglobin (External) 11.0(L) 13.5 - 17.5 GM/DL NON-INTERFACE D (ONBASE SCANS) Hematocrit (External) 33.2(L) 38.8 - 50.0 % NON-INTERFACE D (ONBASE SCANS) MCV (External) 100(H) 81 - 95 FL NON- INTERFACE D (ONBASE SCANS) MCH (External) 33 27 - 34 PG NON- INTERFACE D (ONBASE SCANS) MCHC (External) 33 32 - 36 GM/DL NON-INTERFACE D (ONBASE SCANS) Platelet Count (External) 174 150 - 450 K/UL NON-INTERFACE D (ONBASE SCANS) Blood 09/14/2021 8:00 PM CDT Narrative SAMANTHA PFT - 09/17/2021 8:25 AM CDT Verified by Cruzito Marlow on 09/17/2021. Ruy Hager MD LAB - BLOOD ORDERABL ES [facility] NON-INTERFACED (ONBASE SCANS) * (ABNORMAL) Basic metabolic panel (09/14/2021 8:00 PM CDT) Glucose (External) 95 60 - 115 mg/dL NON-INTERFACED (ONBASE SCANS) Urea Nitrogen (External) 17 7 - 30 mg/dL NON-INTERFACED (ONBASE SCANS) Creatinine (External) 1.8(H) 0.5 - 1.5 mg/dL NON-INTERFACED (ONBASE SCANS) Sodium (External) 140 135 - 149 mmol/L NON-INTERFACED (ONBASE SCANS) Potassium (External) 4.8 3.6 - 5.1 mmol/L NON-INTERFACED (ONBASE SCANS) Chloride (External) 101 96 - 114 mmol/L NON-INTERFACED (ONBASE SCANS) CO2 (External) 31 20 - 32 mmol/L NON-INTERFACED (ONBASE SCANS) Calcium (External) 8.8 8.4 - 10.6 mg/dL NON-INTERFACED (ONBASE SCANS) Blood 09/14/2021 8:00 PM CDT Narrative SAMANTHA PFT - 09/17/2021 8:19 AM CDT Verified by Yamil Santo on 09/17/2021. Ruy Hager MD LAB - BLOOD ORDERABL ES SAMANTHA PFT NON-INTERFACED (ONBASE SCANS) documented in this encounter Visit Diagnoses Diagnosis Status post kidney transplant History of liver transplant (H) Liver replaced by transplant documented in this encounter Additional Health Concerns Infection Onset Date Last Indicated Resolved Time 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/16 urine, 07/10/16 rectal swab 06/21/2016 06/21/2016 documented as of this encounter Care Teams Mica Plate Layer Relationship Specialty Start Date End Date Rubén Boyle MD PCP - General Family Practice 03/08/16 Pamela Blanco NP [facility] [address] [place], [place] [id number] Referring Physician 07/13/16 Pedro Segura MD [facility] [address] [place] [address] Nephrology 10/03/16 Freddy Craft MD 516 [facility] [address] [place], [place] [address] Assigned Gastroenterology Provider 02/08/20 Abdifatah Van MD [address] [facility] [address] [place] [address] Assigned Nephrology Provider 07/13/20 11/07/23 Nicole Carranza NP 420 [facility] 508 [place] [address] Assigned Heart and Vascular Provider 01/09/22 Andressa Ruiz PA-C 420 [facility] 803 [place], [place] [address] Physician Hotel Service Manager Endocrinology, Diabetes, and Metabolism 03/01/22 Ashlyn Storm, RN [facility] 711 [place], [place] [address] Registered Nurse 03/03/22 09/15/22 Rubén Gunter [facility] 909 [place], [place] [address] Assigned MTM Pharmacist 02/27/22 Andressa Ruiz PA-C 420 [facility] 803 [place], [place] [address] Assigned Endocrinology Provider 03/13/22 09/07/23 Suzan Harry MD 420 [place] [address] Nephrology 06/30/23 Yasmeen Powers MD 500 [place], [place] [address] Nephrology 10/24/23 Yasmeen Powers MD 500 [place] [address] Assigned Nephrology Provider 11/08/23 documented as of this encounter
--- OUTSIDE RECORDS SUMMARY | 2023-12-15 10:07 | XMS_ITS | Encounter Summary ---
Author Organization [place] Address [address] [place] [address] Care Team Providers Care Rn Case Manager Name Role Phone Rubén Boyle MD Primary Care Provider Pamela Blanco DOOR PERSON Unavailable Pedro Segura MD Unavailable [phone] Freddy Craft MD Unavailable Abdifatah Van MD Unavailable Nicole Carranza DOOR PERSON Unavailable [phone] Andressa Ruiz-C Unavailable [phone] Ashlyn Storm RN Unavailable Rubén Gunter [facility] Unavailable Andressa Ruiz-C Unavailable [phone] Suzan Harry MD Unavailable [phone] Yasmeen Powers MD Unavailable [phone] Yasmeen Powers MD Unavailable [phone] Encounter Details Date Type Department Care Team (Late st Contact Info) Description 01/25/2022 [facility] [address] [place] [address] Calli Hall RN Social History Tobacco Use Types Packs/Day [...] Recorded In the last 10 days, have rajan u been in contact with someone who was confirmed or suspected to have Coronavirus/COVID-19? No / Unsure 01/27/2022 9:12 AM CDT documented as of this encounter Plan of Treatment Not on file documented as of this encounter Visit Diagnoses Not on filedocumented in this encounter Additional Health Concerns Infection Onset Date Last Indicated Resolved Time 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/16 urine, 07/10/16 rectal swab 06/21/2016 06/21/2016 documented as of this encounter Care Teams Rn Case Manager Relationship Specialty Start Date End Date Rubén Boyle MD PCP - General Family Practice 03/08/16 Pamela Blanco NP [facility] [address] [place] [address] Referring Physician 07/13/16 Pedro Segura MD [facility] [address] [place] [address] Nephrology 10/03/16 Freddy Craft MD [address] [address] Assigned Gastroenterology Provider 02/08/20 Abdifatah Van MD 717 [facility] [address] [place] [address] Assigned Nephrology Provider 07/13/20 11/07/23 Nicole Carranza NP 420 [facility] 508 [place] [address] Assigned Heart and Vascular Provider 01/09/22 Andressa Ruiz PA-C 420 [facility] 803 [place] [address] Physician Turbine Blade Assembler Endocrinology, Diabetes, and Metabolism 03/01/22 Ashlyn Storm, RN [facility] 711 [place] [address] Registered Nurse 03/03/22 09/15/22 Rubén Gunter [facility] [address] [place] [address] Assigned MTM Pharmacist 02/27/22 Andressa Ruiz PA-C 420 [facility] 803 [place] [address] Assigned Endocrinology Provider 03/13/22 09/07/23 Suzan Harry MD 420 [place] [address] Nephrology 06/30/23 Yasmeen Powers MD 500 [place], [place] [address] Nephrology 10/24/23 Yasmeen Powers MD 500 [place] [address] Assigned Nephrology Provider 11/08/23 documented as of this encounter
--- OUTSIDE RECORDS SUMMARY | 2023-12-15 10:07 | XMS_ITS | Encounter Summary ---
Author Organization [place] Address [address] [place] [address] Care Team Providers Care Wood Heel Flap Inserter Name Role Phone Rubén Boyle MD Primary Care Provider Pamela Blanco ROD STRAIGHTENER Unavailable [phone] Pedro Segura MD Unavailable Freddy Craft MD Unavailable [phone] Abdifatah Van MD Unavailable Nicole Carranza ROD STRAIGHTENER Unavailable [phone] Andressa Ruiz-C Unavailable Ashlyn Storm RN Unavailable [phone] Rubén Gunter [facility] Unavailable Andressa Ruiz-C Unavailable Suzan Harry MD Unavailable [phone] Yasmeen Powers MD Unavailable Yasmeen Powers MD Unavailable [phone] Reason for Visit * Reason Onset Date Comments Call Back 11/04/2021 Alex is request ing call back to go over lab results Critical Values 11/04/2021 Encounter Details Date Type Department Care Team ([facility] Contact Info) Description 11/04/2021 Telephone [facility] [address] [address] Freddy Craft MD [address] [place] [address] [address] [place] [address] Call Back (Alex is requesting call back to go over lab results); Critical Values Social History Tobacco Use Types Packs/Day Years [...] encounter Miscellaneous Notes * Telephone Encounter - Ctaia Su RN - 11/05/2021 9:01 AM CDT Differential faxed to [facility] to be added on to recent labs with WBC 1.93. ADDENDUM: Records requested from [facility] re: all labs from 10/2021 * Telephone Encounter - Laurie Carmen LPN - 11/05/2021 8:46 AM CDT DATE: 11/05/2021 TIME OF RECEIPT FROM LAB: 8:46 ORDERING PROVIDER: Elio LAB TEST: wbc LAB VALUE: 1.93 RESULTS GIVEN WITH READ-BACK TO (PROVIDER): Catia Su TIME LAB VALUE REPORTED TO PROVIDER: 8:46 * Telephone Encounter - Loren Adan - 11/04/2021 4:55 PM CDT M [facility] Call Center Phone Message May a detailed message be left on voicemail: yes Reason for Call: Other: Alex from [facility] is requesting a call back to go over patient's labs, they found that patient has a low white cell count. Please call them back at [phone], thank you! Action Taken: Message routed to: [facility] ([facility]): Hep Travel Screening: Not Applicable 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, 07/10/16 rectal swab 06/21/2016 06/21/2016 documented as of this encounter Care Teams Wood Heel Flap Inserter Relationship Specialty Start Date End Date Rubén Boyle MD PCP - General Family Practice 03/08/16 Pamela Blanco ROD STRAIGHTENER [facility] [address] [place], [place] [address] Referring Physician 07/13/16 Pedro Segura MD [facility] [address] [place], [place] [address] Nephrology 10/03/16 Freddy Craft MD 516 [facility] [address] [place] [address] Assigned Gastroenterology Provider 02/08/20 Abdifatah Van MD [address] [place] [address] Assigned Nephrology Provider 07/13/20 11/07/23 Nicole Carranza NP 420 [facility] [address] [place] [address] Assigned Heart and Vascular Provider 01/09/22 Andressa Ruiz PA-C 420 [facility] 803 [place] [address] Physician Medical Billing And Coding Specialist Endocrinology, Diabetes, and Metabolism 03/01/22 Ashlyn Storm, RN [facility] 711 [place] [address] Registered Nurse 03/03/22 09/15/22 Rubén Gunter [facility] [address] [place] [address] Assigned MTM Pharmacist 02/27/22 Andressa Ruiz PA-C 420 [facility] 803 [place] [address] Assigned Endocrinology Provider 03/13/22 09/07/23 Suzan Harry MD [address] [place] [address] Nephrology 06/30/23 Yasmeen Powers MD 500 [place] [address] Nephrology 10/24/23 Yasmeen Powers MD 500 [place] [address] Assigned Nephrology Provider 11/08/23 documented as of this encounter
--- OUTSIDE RECORDS SUMMARY | 2023-12-15 10:07 | XMS_ITS | Encounter Summary ---
Author Organization [facility] Address [address] [place] [address] Care Team Providers Care Dental Practitioner Name Role Phone Rubén Boyle MD Primary Care Provider [phone] Pamela Blanco BILINGUAL ELEMENTARY SCHOOL TEACHER Unavailable Pedro Segura MD Unavailable Freddy Craft MD Unavailable Abdifatah Van MD Unavailable Nicole Carranza BILINGUAL ELEMENTARY SCHOOL TEACHER Unavailable [phone] Andressa Ruiz-C Unavailable Ashlyn Storm RN Unavailable Rubén Gunter [facility] Unavailable Andressa Ruiz-C Unavailable Suzan Harry MD Unavailable Yasmeen Powers MD Unavailable [phone] Yasmeen Powers MD Unavailable [phone] Encounter Details Date Type Department Care Team (Late st Contact Info) Description 11/04/2021 External Order Results [facility] [address] [place] [address] Outside, Provider History of liver transplant (H) [...] Comments CBC WITH PLATELETS & DIFFERENTIAL Routine 11/04/2021 11:20 AM CDT MAGNESIUM Routine 11/04/2021 11:20 AM CDT HEPATIC FUNCTION PANEL Routine 11/04/2021 11:20 AM CDT History of liver transplant (H) BASIC METABOLIC PANEL Routine 11/04/2021 11:20 AM CDT History of liver transplant (H) TACROLIMUS BY TANDEM MASS SPECTROMETRY Routine 11/04/2021 11:07 AM CDT HEMOGLOBIN A1C Routine 11/04/2021 11:07 AM CDT documented in this encounter Results * (ABNORMAL) CBC with Platelets & Differential (11/04/2021 11:20 AM CDT) WBC Count (External) 1.93(L) 4.50 - 11.00 K/uL NON-INTERFACE D (ONBASE SCANS) RBC Count (External) 3.17(L) 4.30 - 5.90 M/ul NON-INTERFACE D (ONBASE SCANS) Hemoglobin (External) 10.8(L) 13.5 - 17.5 g/dl NON-INTERFACE D (ONBASE SCANS) Hematocrit (External) 32.1(L) 37.0 - 53.0 % NON-INTERFACE D (ONBASE SCANS) MCV (External) 101(H) 80 - 100 fL NON-INTERFACE D (ONBASE SCANS) MCH (External) 34 26 - 34 pg NON- INTERFACE D (ONBASE SCANS) MCHC (External) 34 32 - 36 gm/dL NON-INTERFACE D (ONBASE SCANS) Platelet Count (External) 189 140 - 440 K/uL NON-INTERFACE D (ONBASE SCANS) RDW (External) 15.5 11.5 - 15.5 % NON-INTERFACE D (ONBASE SCANS) % Neutrophils (External) 63.8 42.0 - 72.0 % NON-INTERFACE D (ONBASE SCANS) % Lymphocytes (External) 22.3 20 - 44 % NON-INTERFACE D (ONBASE SCANS) % Monocytes (External) 8.8 0.0 - 11.0 % NON-INTERFACE D (ONBASE SCANS) % Eosinophils (External) 4.1 0.0 - 7.0 % NON-INTERFACE D (ONBASE SCANS) % Basophils (External) 1.0 0.0 - 3.0 % NON-INTERFACE D (ONBASE [...] Absolute Immature Granulocytes (External) 0.00 0.00 - 0.20 K/uL NON-INTERFACE D (ONBASE SCANS) Blood 11/04/2021 11:2 0 AM CDT Narrative BREEZE PFT - 11/05/2021 10:33 AM CDT Verified by Pedrito Stallworth on 11/05/2021. Freddy Dumont MD LAB - BLOOD ORD ERABLES AMNAKayli PFT NON-INTERFACED (ONBASE SCANS) * Magnesium (11/04/2021 11:20 AM CDT) Magnesium (External) 1.6 1.5 - 2.6 mg/dL NON-INTERFACED (ONBASE SCANS) Blood 11/04/2021 11:2 0 AM CDT Narrative ERCIKEZE PFT - 11/05/2021 10:33 AM CDT Verified by Pedrito Stallworth on 11/05/2021. Freddy Dumont MD LAB - BLOOD ORD ERABLES Performing Organization Address [facility] Co de Phone Number [facility] NON-INTERFACED (ONBASE SCANS) * Hepatic function panel (11/04/2021 11:20 AM CDT) Protein Total (External) 6.1 6.0 - 8.3 g/dL NON-INTERFACED (ONBASE SCANS) Albumin (External) 3.8 3.3 - 5.0 g/dL NON-INTERFACED (ONBASE SCANS) Bilirubin Total (External) 1.1 0.1 - 1.5 mg/dL NON-INTERFACED (ONBASE SCANS) Bilirubin Direct (External) 0.4 0.0 - 0.5 mg/dL NON-INTERFACED (ONBASE SCANS) AST (External) 22 12 - 35 U/L NON-INTERFACED (ONBASE SCANS) ALT (External) 9 4 - 50 U/L NON- INTERFACED (ONBASE SCANS) Alk Phosphatase (External) 60 40 - 150 U/L NON-INTERFACED (ONBASE SCANS) Blood 11/04/2021 11:2 0 AM CDT Narrative AMNAE PFT - 11/05/2021 10:33 AM CDT Verified by Pedrito Stallworth on 11/05/2021. Freddy Dumont MD LAB - BLOOD ORD ERALASHAE Performing Organization Address [facility] Co de Phone Number SAMANTHA PFT NON-INTERFACED (ONBASE SCANS) * (ABNORMAL) Basic metabolic panel (11/04/2021 11:20 AM CDT) Sodium (External) 138 135 - 149 mmol/L NON-INTERFACED (ONBASE SCANS) Potassium (External) 5.2(H) 3.6 - 5.1 mmol/L NON-INTERFACED (ONBASE SCANS) Chloride (External) 105 96 - 114 mmol/L NON-INTERFACED (ONBASE SCANS) CO2 (External) 28 20 - 32 mmol/L NON-INTERFACED (ONBASE SCANS) Urea Nitrogen (External) 16 7 - 30 mg/dL NON-INTERFACED (ONBASE SCANS) Creatinine (External) 1.5 0.5 - 1.5 mg/dL NON-INTERFACED (ONBASE SCANS) GFR Estimated (External) 50 ml/min NON-INTERFACED (ONBASE SCANS) Calcium (External) 9.0 8.4 - 10.6 mg/dL NON-INTERFACED (ONBASE SCANS) Glucose (External) 132(H) 60 - 115 mg/dL NON-INTERFACED (ONBASE SCANS) Blood 11/04/2021 11:2 0 AM CDT Narrative BREEZE PFT - 11/05/2021 10:33 AM CDT Verified by Pedirto Stallworth on 11/05/2021. Freddy Dumont MD LAB - BLOOD ORD ERABLES BREEZE PFT NON-INTERFACED (ONBASE SCANS) * (ABNORMAL) Hemoglobin A1c (11/04/2021 11:07 AM CDT) Hemoglobin A1C (External) 5.7(H) 0 - 5.6 NON-INTERFACED (ONBASE SCANS) Blood 11/04/2021 11:0 7 AM CDT Narrative BREEZE PFT - 11/10/2021 7:32 AM CDT Verified by Yamil Santo on 11/10/2021. Rubén Boyle MD LAB - BLOOD ORDERABL ES BREEZE PFT NON-INTERFACED (ONBASE SCANS) * Tacrolimus by Tandem Mass Spectrometry (11/04/2021 11:07 AM CDT) Tacrolimus(FK-5 06) (External) 4.1 View image NG/Ml NON-INTERFACED (ONBASE SCANS) Blood 11/04/2021 11:0 7 AM CDT Narrative SAMANTHA PFT - 11/10/2021 7:32 AM CDT Verified by Yamil Santo on 11/10/2021. Rubén Boyle MD LAB - BLOOD ORDERABL ES SAMANTHA PFT NON-INTERFACED (ONBASE SCANS) documented in this encounter Visit Diagnoses Diagnosis History of liver transplant (H) Liver replaced by transplant documented in this encounter Additional Health Concerns Infection Onset Date Last Indicated Resolved Time 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/16 urine, 07/10/16 rectal swab 06/21/2016 06/21/2016 documented as of this encounter Care Teams Dental Practitioner Relationship Specialty Start Date End Date Rubén Boyle MD PCP - General Family Practice 03/08/16 Pamela Blanco B[employer]INGUAL ELEMENTARY SCHOOL TEACHER [facility] [address] [place] [address] Referring Physician 07/13/16 Pedro Segura MD [facility] [address] [place], [place] [address] Nephrology 10/03/16 Freddy Craft MD [address] [facility] [address] [place], [place] [address] Assigned Gastroenterology Provider 02/08/20 Abdifatah Van MD [address] [place], [place] [address] Assigned Nephrology Provider 07/13/20 11/07/23 Nicole Carranza, G[place] [address] [facility] [address] [place] [address] Assigned Heart and Vascular Provider 01/09/22 Andressa Ruiz PA-C 420 [facility] 803 [place], [place] [address] Physician Clinical Dermatologist Endocrinology, Diabetes, and Metabolism 03/01/22 Ashlyn Storm, RN [facility] 711 [place], [place] [address] Registered Nurse 03/03/22 09/15/22 Rubén Gunter [facility] 909 [place], [place] [address] Assigned MTM Pharmacist 02/27/22 Andressa Riuz PA-C 420 [facility] 803 [place], [place] [address] Assigned Endocrinology Provider 03/13/22 09/07/23 Suzan Harry MD 420 [place], [place] [address] Nephrology 06/30/23 Yasmeen Powers MD 500 [place], [place] [address] Nephrology 10/24/23 Yasmeen Powers MD 500 [place] [address] Assigned Nephrology Provider 11/08/23 documented as of this encounter
--- OUTSIDE RECORDS SUMMARY | 2023-12-15 10:07 | XMS_ITS | Encounter Summary ---
Author Organization [facility] Address [address] [place] [address] Care Team Providers Care Metal And Plastic Heater Name Role Phone Rubén Boyle MD Primary Care Provider Pamela Blanco COLLAR STARCHER Unavailable Pedro Segura MD Unavailable [phone] Freddy Craft MD Unavailable Abdifatah Van MD Unavailable Nicole Carranza COLLAR STARCHER Unavailable [phone] Andressa Ruiz-C Unavailable Ashlyn Storm RN Unavailable Rubén Gunter [facility] Unavailable Andressa Ruiz-C Unavailable Suzan Harry MD Unavailable [phone] Yasmeen Powers MD Unavailable [phone] Yasmeen Powers MD Unavailable [phone] Encounter Details Date Type Department Care Team (Late st Contact Info) Description 10/23/2021 External Order Results [facility] [address] [place] [address] Outside, Provider Social History Tobacco Use Types [...] documented as of this encounter Care Teams Metal And Plastic Heater Relationship Specialty Start Date End Date Rubén Boyle MD PCP - General Family Practice 03/08/16 Pamela Blanco COLLAR STARCHER [facility] [address] [place] [address] Referring Physician 07/13/16 Pedro Segura MD [facility] [address] [place] [address] Nephrology 10/03/16 Freddy Craft MD [address] [facility] [address] [place], [place] [address] Assigned Gastroenterology Provider 02/08/20 Abdifatah Van MD 717 [facility] [address] [place], [place] [address] Assigned Nephrology Provider 07/13/20 11/07/23 Nicole Carranza NP 420 [facility] 508 [place] [address] Assigned Heart and Vascular Provider 01/09/22 Andressa Ruiz PA-C 420 [facility] 803 [place] [address] Physician Fast Food Delivery Driver Endocrinology, Diabetes, and Metabolism 03/01/22 Ashlyn Storm, RN [facility] 711 [place] [address] Registered Nurse 03/03/22 09/15/22 Rubén Gunter [facility] [address] [place] [address] Assigned MTM Pharmacist 02/27/22 Andressa Ruiz PA-C 420 [facility] 803 [place] [address] Assigned Endocrinology Provider 03/13/22 09/07/23 Suzan Harry MD [address] [place] [address] Nephrology 06/30/23 Yasmeen Powers MD 500 [place] [address] Nephrology 10/24/23 Yasmeen Powers MD 500 [place] [address] Assigned Nephrology Provider 11/08/23 documented as of this encounter
--- OUTSIDE RECORDS SUMMARY | 2023-12-15 10:07 | XMS_ITS | Encounter Summary ---
Author Organization [facility] Address [address] [place] [address] Care Team Providers Care Account Development Associate Name Role Phone Rubén Boyle MD Primary Care Provider Pamela Blanco MONUMENT SETTER Unavailable Pedro Segura MD Unavailable Freddy Craft MD Unavailable Abdifatah Van MD Unavailable Nicole Carranza MONUMENT SETTER Unavailable [phone] Andressa Ruiz-C Unavailable Ashlyn Storm RN Unavailable [phone] Rubén Gunter [facility] Unavailable Andressa Ruiz-C Unavailable Suzan Harry MD Unavailable [phone] Yasmeen Powers MD Unavailable [phone] Yasmeen Powers MD Unavailable [phone] Encounter Details Date Type Department Care Team (Late st Contact Info) Description 08/11/2021 External Order Results [facility] [address] [place] [address] Outside, Provider Lipid screening; 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) Social History [...] Comments CBC WITH PLATELETS & DIFFERENTIAL Routine 08/11/2021 10:00 AM CDT PSA TUMOR MARKER Routine 08/11/2021 10:0 0 AM CDT LIPID PROFILE Routine 08/11/2021 10:00 AM CDT HEMOGLOBIN A1C Routine 08/11/2021 10:00 AM CDT ALT Routine 08/11/2021 10:00 AM CDT BASIC METABOLIC PANEL Routine 08/11/2021 10:00 AM CDT Lipid screening 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) documented in this encounter Results * Hemoglobin A1c (08/11/2021 10:00 AM CDT) Hemoglobin A1C (External) 5.8 <=6.9 % NON-INTERFACED (ONBASE SCANS) Blood 08/11/2021 10:0 0 AM CDT Narrative SAMANTHA PFT - 08/16/2021 3:06 PM CDT Verified by Melissa Otto on 08/16/2021. Freddy Dumont MD LAB - BLOOD ORD ERABLES BREEZE PFT NON-INTERFACED (ONBASE SCANS) * PSA tumor marker (08/11/2021 10:00 AM CDT) PSA (External) 2.85 0.10 - 4.00 NG/ML NON-INTERFACED (ONBASE SCANS) Blood 08/11/2021 10:0 0 AM CDT Narrative BREEZE PFT - 08/16/2021 3:06 PM CDT Verified by Melissa Otto on 08/16/2021. Freddy Dumont MD LAB - BLOOD ORD ERABLES Performing Organization Address City/[facility]/ZIP Co de Phone Number BREEZE PFT NON-INTERFACED (ONBASE SCANS) * (ABNORMAL) Lipid Profile (08/11/2021 10:00 AM CDT) Cholesterol (External) 154 90 - 199 mg/dL NON-INTERFACE D (ONBASE SCANS) Triglycerides (External) 149 40 - 149 mg/dL NON-INTERFACE D (ONBASE SCANS) LDL-Cholesterol (External) 85 <100 mg/dL NON-INTERFACE D (ONBASE SCANS) HDL Cholesterol (External) 39(L) >=40 mg/dL NON-INTERFACE D (ONBASE SCANS) Blood 08/11/2021 10:0 0 AM CDT Narrative BREEZE PFT - 08/16/2021 3:06 PM CDT Verified by Melissa Otto on 08/16/2021. Freddy Dumont MD LAB - BLOOD ORD ERABLES Performing Organization Address [facility] Co de Phone Number BREEZE PFT NON-INTERFACED (ONBASE SCANS) * ALT (08/11/2021 10:00 AM CDT) ALT (External) 13 4 - 50 U/L NON- INTERFACED (ONBASE SCANS) Blood 08/11/2021 10:0 0 AM CDT Narrative BREEZE PFT - 08/16/2021 3:06 PM CDT Verified by Melissa Otto on 08/16/2021. Freddy Dumont MD LAB - BLOOD ORD ERABLES BREEZE PFT NON-INTERFACED (ONBASE SCANS) * (ABNORMAL) CBC with Platelets & Differential (08/11/2021 10:00 AM CDT) WBC Count (External) 2.52(L) 5.00 - 10.00 K/uL NON-INTERFACE D (ONBASE SCANS) RBC Count (External) 3.72(L) 4.32 - 5.72 M/UL NON-INTERFACE D (ONBASE SCANS) Hemoglobin (External) 12.5(L) 13.5 - 17.5 g/dL NON-INTERFACE D (ONBASE SCANS) Hematocrit (External) 36.5(L) 38.8 - 50.0 % NON-INTERFACE D (ONBASE SCANS) MCV (External) 98(H) 81 - 95 FL NON- INTERFACE D (ONBASE SCANS) MCH (External) 34 27 - 34 pg NON- INTERFACE D (ONBASE SCANS) MCHC (External) 34 32 - 36 g/dL NON-INTERFACE D (ONBASE SCANS) Platelet Count (External) 171 150 - 450 K/uL NON-INTERFACE D (ONBASE SCANS) RDW (External) 15.2 11.5 - 15.3 % NON-INTERFACE D (ONBASE SCANS) % Neutrophils (External) 52.4 50.0 - 70.0 % NON-INTERFACE D (ONBASE SCANS) % Lymphocytes (External) 33.3 25.0 - 45.0 % NON-INTERFACE D (ONBASE SCANS) % Monocytes (External) 9.1 0.00 - 11.0 % NON-INTERFACE D (ONBASE SCANS) % Eosinophils (External) 4.4 0.0 - 7.0 % NON-INTERFACE D (ONBASE SCANS) % Basophils (External) 0.4 0.0 - 3.0 % NON-INTERFACE D (ONBASE SCANS) % Immature Granulocytes (External) 0.4 % NON-INTERFACE D (ONBASE SCANS) Absolute Neutrophils (External) 1.32(L) 1.70 - 7.00 K/uL NON-INTERFACE D (ONBASE SCANS) Absolute Lymphocytes (External) 0.84(L) 0.90 - 2.90 K/uL NON-INTERFACE D (ONBASE SCANS) Absolute Monocytes (External) 0.23(L) 0.30 - 0.90 K/uL NON-INTERFACE D (ONBASE SCANS) Absolute Eosinophils (External) 0.11 0.00 - 0.50 K/uL NON-INTERFACE D (ONBASE SCANS) Absolute Basophils (External) 0.01 0.00 - 0.20 K/uL NON-INTERFACE D (ONBASE SCANS) Absolute Immature Granulocytes (External) 0.01 K/uL NON-INTERFACE D (ONBASE SCANS) Blood 08/11/2021 10:0 0 AM CDT Narrative ERICKEZE PFT - 08/16/2021 3:06 PM CDT Verified by Melissa Otto on 08/16/2021. Freddy Dumont MD LAB - BLOOD ORD ERABLES Performing Organization Address City/State/[facility] Co de Phone Number SAMANTHA PFT NON-INTERFACED (ONBASE SCANS) * (ABNORMAL) Basic metabolic panel (08/11/2021 10:00 AM CDT) Glucose (External) 80 60 - 115 mg/dL NON-INTERFACED (ONBASE SCANS) Urea Nitrogen (External) 21 7 - 30 mg/dL NON-INTERFACED (ONBASE SCANS) Creatinine (External) 2.2(H) 0.5 - 1.5 mg/dL NON-INTERFACED (ONBASE SCANS) Sodium (External) 138 135 - 149 mmol/L NON-INTERFACED (ONBASE SCANS) Potassium (External) 4.8 3.6 - 5.1 mmol/L NON-INTERFACED (ONBASE SCANS) Chloride (External) 100 96 - 114 mmol/L NON-INTERFACED (ONBASE SCANS) CO2 (External) 31 20 - 32 mmol/L NON-INTERFACED (ONBASE SCANS) Calcium (External) 9.2 8.4 - 10.6 mg/dL NON-INTERFACED (ONBASE SCANS) Blood 08/11/2021 10:0 0 AM CDT Narrative AMNAE PFT - 08/16/2021 3:06 PM CDT Verified by Melissa Otto on 08/16/2021. Freddy Dumont MD LAB - BLOOD ORD ERABLES BREEZE PFT NON-INTERFACED (ONBASE SCANS) documented in this encounter Visit Diagnoses Diagnosis Lipid screening Screening for lipoid disorders 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) Liver replaced by transplant documented in this encounter Additional Health Concerns Infection Onset Date Last Indicated Resolved Time 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/16 urine, 07/10/16 rectal swab 06/21/2016 06/21/2016 documented as of this encounter Care Teams Account Development Associate Relationship Specialty Start Date End Date Rubén Boyle MD PCP - General Family Practice 03/08/16 Pamela Blanco NP [facility] [address] [place], [place] [address] Referring Physician 07/13/16 Pedro Segura MD [facility] [address] [place], [place] [address] Nephrology 10/03/16 Freddy Craft MD [address] [facility] [place], [place] [address] Assigned Gastroenterology Provider 02/08/20 Abdifatah Van MD [address] [facility] [address] [place] [address] Assigned Nephrology Provider 07/13/20 11/07/23 Nicole Carranza NP 420 [facility] [address] [place], [place] [address] Assigned Heart and Vascular Provider 01/09/22 Andressa Ruiz PA-C 420 [facility] 803 [place] [address] Physician Electric Appliance Installer Endocrinology, Diabetes, and Metabolism 03/01/22 Ashlyn Storm, RN [facility] 711 [place] [address] Registered Nurse 03/03/22 09/15/22 Rubén Gunter [facility] [address] [place] [address] Assigned MTM Pharmacist 02/27/22 Andressa Ruiz PA-C 420 [facility] 803 [place] [address] Assigned Endocrinology Provider 03/13/22 09/07/23 Suzan Harry MD 420 [place] [address] Nephrology 06/30/23 Yasmeen Powers MD 500 [place] [address] Nephrology 10/24/23 Yasmeen Powers MD [address] [place] [address] Assigned Nephrology Provider 11/08/23 documented as of this encounter
--- OUTSIDE RECORDS SUMMARY | 2023-12-15 10:07 | XMS_ITS | Encounter Summary ---
Author Organization [facility] Address [address] [place] [address] Care Team Providers Care Logistics Loss Prevention Manager Name Role Phone Rubén Boyle MD Primary Care Provider Pamela Blanco BOOKMOBILE CLERK Unavailable Pedro Segura MD Unavailable Freddy Craft MD Unavailable [phone] Abdifatah Van MD Unavailable Nicole Carranza BOOKMOBILE CLERK Unavailable [phone] Andressa Ruiz-C Unavailable [phone] Ashlyn Storm RN Unavailable Rubén Gunter [facility] Unavailable Andressa Ruiz-C Unavailable Suzan Harry MD Unavailable [phone] Yasmeen Powers MD Unavailable [phone] Yasmeen Powers MD Unavailable [phone] Encounter Details Date Type Department Care Team (Late st Contact Info) Description 01/13/2022 [facility] [address] [place] [address] Ami Rivero LPN Social History Tobacco Use Types Packs/Day Years Used Date Smoking Tobacco: Former Cigarettes Q uit: 04/18/1985 Smokeless Tobacco: Never Comments:quit years ago Alcohol Use Standard Drinks/Week Comments No 0 (1 standard drink = 0.6 oz pur e alcohol) quit Dec 2015 PHQ-2 Answer Date Recorded PHQ-2 Score 0 12/31/2021 Sex and Gender Information Value Date Recorded Sex Assigned at Not on file Gender Identity Not on file Sexual Orientation Not on file COVID-19 Exposure Response Date Recorded In the last 10 days, have yo u been in contact with someone who was confirmed or suspected to have Coronavirus/COVID-19? No / Unsure 01/13/2022 9:15 AM CDT documented as of this encounter Plan of Treatment Not on file documented as of this encounter Visit Diagnoses Not on filedocumented in this encounter Additional Health Concerns Infection Onset Date Last Indicated Resolved Time 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/16 urine, 07/10/16 rectal swab 06/21/2016 06/21/2016 documented as of this encounter Care Teams Logistics Loss Prevention Manager Relationship Specialty Start Date End Date Rubén Boyle MD PCP - General Family Practice 03/08/16 Pamela Blanco BOOKMOBILE CLERK [facility] [address] [place] [address] Referring Physician 07/13/16 Pedro Segura MD [facility] [address] [place] [address] Nephrology 10/03/16 Freddy Craft MD [address] [address] Assigned Gastroenterology Provider 02/08/20 Abdifatah Van MD [address] [place] [address] [address] [place] [address] Assigned Nephrology Provider 07/13/20 11/07/23 Nicole Carranza NP 420 [facility] [address] [place] [address] Assigned Heart and Vascular Provider 01/09/22 Andressa Ruiz PA-C 420 [facility] 8[address] [place] [address] Physician Hearing Healthcare Practitioner Endocrinology, Diabetes, and Metabolism 03/01/22 Ashlyn Storm RN [facility] 711 [place] [address] Registered Nurse 03/03/22 09/15/22 Rubén Gunter [facility] [address] [place] [address] Assigned MTM Pharmacist 02/27/22 Andressa Ruiz PA-C 420 [facility] 803 [place] [address] Assigned Endocrinology Provider 03/13/22 09/07/23 Suzan Harry MD 420 [place] [address] Nephrology 06/30/23 Yasmeen Powers MD 500 [place], [place] [address] Nephrology 10/24/23 Yasmeen Powers MD 500 [place] [address] Assigned Nephrology Provider 11/08/23 documented as of this encounter
--- OUTSIDE RECORDS SUMMARY | 2023-12-15 10:07 | XMS_ITS | Encounter Summary ---
Author Organization [facility] Address [address] [place] [id number] Care Team Providers Care Board Certified Orthodontist Name Role Phone Rubén Boyle MD Primary Care Provider [phone] Pamela Blanco [employer] Unavailable [phone] Pedro Segura MD Unavailable Freddy Craft MD Unavailable Abdifatah Van MD Unavailable Nicole Carranza [employer] Unavailable [phone] Andressa Ruiz-C Unavailable [phone] Ashlyn Storm RN Unavailable Rubén Gunter [facility] Unavailable Andressa Ruiz-C Unavailable [phone] Suzan Harry MD Unavailable [phone] Yasmeen Powers MD Unavailable [phone] Yasmeen Powers MD Unavailable [phone] Encounter Details Date Type Department Care Team (Late st Contact Info) Description 10/26/2021 External Order Results [facility] [address] [place] [address] Outside, Provider Social History Tobacco Use Types [...] Comments CBC WITH PLATELETS & DIFFERENTIAL Routine 10/26/2021 10:18 AM CDT HEPATIC FUNCTION PANEL Routine 10:18 AM CDT BASIC METABOLIC PANEL Routine 10/26/2021 10:18 AM CDT CBC WITH PLATELETS & DIFFERENTIAL Routine 10/25/2021 6:55 AM CDT TROPONIN I Routine 10/25/2021 6:55 AM CDT HEPATIC FUNCTION PANEL Routine 6:55 AM CDT CRP INFLAMMATION Routine 10/25/2021 6:55 AM CDT BLOOD GAS VENOUS Routine 10/25/2021 6:55 AM CDT BASIC METABOLIC PANEL Routine 10/25/2021 6:55 AM CDT EXTERNAL LAB RESULTS Routine 10/24/2021 3:53 PM CDT D DIMER QUANTITATIVE Routine 10/24/2021 9:00 AM CDT CBC WITH PLATELETS & DIFFERENTIAL Routine 10/24/2021 8:21 AM CDT TROPONIN I Routine 10/24/2021 8:21 AM CDT MAGNESIUM Routine 10/24/2021 8:21 AM CDT HEPATIC FUNCTION PANEL Routine 8:21 AM CDT CRP INFLAMMATION Routine 10/24/2021 8:21 AM CDT BLOOD GAS VENOUS Routine 10/24/2021 8:21 AM CDT BASIC METABOLIC PANEL Routine 10/24/2021 8:21 AM CDT TROPONIN I Routine 10/23/2021 9:30 AM CDT LACTATE DEHYDROGENASE Routine 10/23/2021 6:30 AM CDT CBC WITH PLATELETS & DIFFERENTIAL Routine 10/23/2021 6:30 AM CDT LIPASE Routine 10/23/2021 6:30 AM CDT LACTIC ACID WHOLE BLOOD Routine 10/23/2021 6:30 AM CDT HEPATIC FUNCTION PANEL Routine 6:30 AM CDT CRP INFLAMMATION Routine 10/23/2021 6:30 AM CDT BASIC METABOLIC PANEL Routine 10/23/2021 6:30 AM CDT TROPONIN I Routine 10/22/2021 8:30 PM CDT TROPONIN I Routine 10/22/2021 5:08 PM CDT LACTIC ACID WHOLE BLOOD Routine 10/22/2021 5:08 PM CDT GLUCOSE Routine 10/22/2021 3:30 PM CDT TROPONIN I Routine 10/22/2021 8:05 AM CDT LACTATE DEHYDROGENASE Routine 10/22/2021 4:40 AM CDT TROPONIN I Routine 10/22/2021 4:40 AM CDT N TERMINAL PRO BNP OUTPATIENT Routine 10/22/2021 4:40 AM CDT LACTIC ACID WHOLE BLOOD Routine 10/22/2021 4:40 AM CDT BLOOD GAS VENOUS Routine 10/22/2021 4:40 AM CDT BASIC METABOLIC PANEL Routine 10/22/2021 4:40 AM CDT ROUTINE UA WITH MICROSCOPIC Routine 10/22/2021 1:01 AM CDT EXTERNAL LAB RESULTS Routine 10/22/2021 12:18 AM CDT COVID-19 VIRUS (CORONAVIRUS) BY PCR (EXTERNAL RESULT) Routine 10/21/2021 11:17 PM CDT LACTATE DEHYDROGENASE Routine 10/21/2021 11:10 PM CDT EXTERNAL LAB RESULTS Routine 10/21/2021 11:10 PM CDT N TERMINAL PRO BNP OUTPATIENT Routine 10/21/2021 11:10 PM CDT LIPASE Routine 10/21/2021 11:10 PM CDT LACTIC ACID WHOLE BLOOD Routine 10/21/2021 11:10 PM CDT HEPATIC FUNCTION PANEL Routine 11:10 PM CDT BLOOD GAS VENOUS Routine 10/21/2021 11:1 0 PM CDT BASIC METABOLIC PANEL Routine 10/21/2021 11:10 PM CDT CBC WITH PLATELETS & DIFFERENTIAL Routine 10/21/2021 10:45 PM CDT GLUCOSE Routine 10/21/2021 10:45 PM CDT documented in this encounter Results * (ABNORMAL) Hepatic function panel (10/26/2021 10:18 AM CDT) Protein Total (External) 5.9(L) 6.0 - 8.3 g/dL NON-INTERFACE D (ONBASE SCANS) Albumin (External) 3.5 3.3 - 5.0 g/dL NON-INTERFACE D (ONBASE SCANS) Bilirubin Total (External) 1.3 0.1 - 1.5 mg/dL NON-INTERFACE D (ONBASE SCANS) AST (External) 18 12 - 35 U/L NON-INTERFACE D (ONBASE SCANS) ALT (External) 10 4 - 50 U/L NON- INTERFACE D (ONBASE SCANS) Alk Phosphatase (External) 57 40 - 150 U/L NON-INTERFACE D (ONBASE SCANS) Blood 10/26/2021 10:1 8 AM CDT Narrative ERICKCARISA PFT - 11/13/2021 9:26 AM CDT Verified by Pedrito Stallworth on 11/12/2021. [facility] Bhakta LAB - BLOOD ORDERABL ES SAMANTHA PFT NON-INTERFACED (ONBASE SCANS) * Basic metabolic panel (10/26/2021 10:18 AM CDT) Sodium (External) 142 135 - 149 mmol/L NON-INTERFACED (ONBASE SCANS) Potassium (External) 4.3 3.6 - 5.1 mmol/L NON-INTERFACED (ONBASE SCANS) Chloride (External) 104 96 - 114 mmol/L NON-INTERFACED (ONBASE SCANS) CO2 (External) 28 20 - 32 mmol/L NON-INTERFACED (ONBASE SCANS) Urea Nitrogen (External) 10 7 - 30 mg/dL NON-INTERFACED (ONBASE SCANS) Creatinine (External) 1.2 0.5 - 1.5 mg/dL NON-INTERFACED (ONBASE SCANS) Calcium (External) 9.1 8.4 - 10.6 mg/dL NON-INTERFACED (ONBASE SCANS) Blood 10/26/2021 10:1 8 AM CDT Narrative SAMANTHA PFT - 11/12/2021 3:44 PM CDT Verified by Brisa Jackson on 11/12/2021. Provider Outside LAB - BLOOD ORDERABL ES SAMANTHA PFT NON-INTERFACED (ONBASE SCANS) * (ABNORMAL) CBC with Platelets & Differential (10/26/2021 10:18 AM CDT) WBC Count (External) 1.99(LL) 4.50 - 11.00 K/uL NON-INTERFACE D (ONBASE SCANS) RBC Count (External) 3.05(L) 4.30 - 11.0 M/UL NON-INTERFACE D (ONBASE SCANS) Hemoglobin (External) 10.3(L) 13.5 - 17.5 gm/dL NON-INTERFACE D (ONBASE SCANS) Hematocrit (External) 29.5(L) 37.0 - 53.0 % NON-INTERFACE D (ONBASE SCANS) MCV (External) 97 80 - 100 fL NON-INTERFACE D (ONBASE SCANS) MCH (External) 34 26 - 34 pg NON-INTERFACE D (ONBASE SCANS) MCHC (External) 35 32 - 36 gm/dL NON-INTERFACE D (ONBASE SCANS) Platelet Count (External) 126(L) 140 - 440 K/uL NON-INTERFACE D (ONBASE SCANS) RDW (External) 14.7 11.5 - 15.5 % NON-INTERFACE D (ONBASE SCANS) % Neutrophils (External) 63.3 42.0 - 72.0 % NON-INTERFACE D (ONBASE SCANS) % Lymphocytes (External) 23.1 20 - 44 % NON-INTERFACE D (ONBASE SCANS) % Monocytes (External) 11.6(H) 0.0 - 11.0 % NON-INTERFACE D (ONBASE SCANS) % Eosinophils (External) 1.0 0.0 - 7.0 % NON-INTERFACE D (ONBASE SCANS) % Basophils (External) 0.5 0.0 - 3.0 % NON-INTERFACE D (ONBASE SCANS) Absolute Neutrophils (External) 1.30(L) 1.7 - 7.0 K/uL NON-INTERFACE D (ONBASE SCANS) Absolute Lymphocytes (External) 0.50(L) 0.90 - 2.90 K/uL NON-INTERFACE D (ONBASE SCANS) Absolute Monocytes (External) 0.20 0.00 - 0.90 K/UL NON-INTERFACE D (ONBASE SCANS) Absolute Eosinophils (External) 0.00 0.00 - 0.50 K/uL NON-INTERFACE D (ONBASE SCANS) Absolute Basophils (External) 0.00 0.00 - 0.30 K/uL NON-INTERFACE D (ONBASE SCANS) Absolute Immature Granulocytes (External) 0.01 0.00 - 0.30 K/uL NON-INTERFACE D (ONBASE SCANS) Method (External) Auto NO N-INTERFACE D (ONBASE SCANS) Blood 10/26/2021 10:1 8 AM CDT Narrative BREEZE PFT - 11/12/2021 3:44 PM CDT Verified by Brisa Jackson on 11/12/2021. Provider Outside LAB - BLOOD ORDERABL ES SAMANTHA PFT NON-INTERFACED (ONBASE SCANS) * Blood gas venous (10/25/2021 6:55 AM CDT) pH Venous (External) 7.391 7.32 - 7.43 NON-INTERFACED (ONBASE SCANS) pCO2 Venous (External) 45 40 - 50 mm Hg NON-INTERFACED (ONBASE SCANS) pO2 Venous (External) 44.3 25 - 47 mm Hg NON-INTERFACED (ONBASE SCANS) Bicarbonate Venous (External) 27 21 - 28 MMOL/l NON-INTERFACED (ONBASE SCANS) Blood, venous 10/25/2021 6:5 5 AM CDT Narrative BREEZE PFT - 11/13/2021 9:26 AM CDT Verified by Pedrito Stallworth on 11/13/2021. [facility] LAB - BLOOD ORDERABL ES BREEZE PFT NON-INTERFACED (ONBASE SCANS) * (ABNORMAL) CRP inflammation (10/25/2021 6:55 AM CDT) CRP Inflammation (External) 3.8(H) 0.5 - 1.0 mg/dL NON-INTERFACE D (ONBASE SCANS) Blood 10/25/2021 6:55 AM CDT Narrative BREEZE PFT - 11/13/2021 9:26 AM CDT Verified by Pedrito Stallworth on 11/12/2021. [facility] BourgeoisYony LAB - BLOOD ORDERABL ES Performing Organization Address [facility] Co de Phone Number ERICKEZE PFT NON-INTERFACED (ONBASE SCANS) * (ABNORMAL) Troponin I (10/25/2021 6:55 AM CDT) Troponin I (External) 0.07(H) 0.01 - 0.04 ng/mL NON-INTERFACED (ONBASE SCANS) Blood 10/25/2021 6:55 AM CDT Narrative BREEZE PFT - 11/13/2021 9:26 AM CDT Verified by Pedrito Stallworth on 11/12/2021. [facility] BourgeoisYony LAB - BLOOD ORDERABL ES Performing Organization Address [facility] Co de Phone Number AMNAE PFT NON-INTERFACED (ONBASE SCANS) * (ABNORMAL) Hepatic function panel (10/25/2021 6:55 AM CDT) Protein Total (External) 5.2(L) 6.0 - 8.3 g/dL NON-INTERFACE D (ONBASE SCANS) Albumin (External) 3.1(L) 3.3 - 5.0 g/dL NON-INTERFACE D (ONBASE SCANS) Bilirubin Total (External) 1.7(H) 0.1 - 1.5 mg/dL NON-INTERFACE D (ONBASE SCANS) AST (External) 19 12 - 35 U/L NON-INTERFACE D (ONBASE SCANS) ALT (External) 11 4 - 50 U/L NON- INTERFACE D (ONBASE SCANS) Alk Phosphatase (External) 47 40 - 150 U/L NON-INTERFACE D (ONBASE SCANS) Blood 10/25/2021 6:55 AM CDT Narrative BREEZE PFT - 11/13/2021 9:26 AM CDT Verified by Pedrito Stallworth on 11/13/2021. [facility]ak[facility] LAB - BLOOD ORDERABL ES Performing Organization Address [facility] Co de Phone Number SAMANTHA PFT NON-INTERFACED (ONBASE SCANS) * (ABNORMAL) Basic metabolic panel (10/25/2021 6:55 AM CDT) Sodium (External) 134(L) 135 - 149 mmol/L NON-INTERFACED (ONBASE SCANS) Potassium (External) 3.9 3.6 - 5.1 mmol/L NON-INTERFACED (ONBASE SCANS) Chloride (External) 105 96 - 114 mmol/L NON-INTERFACED (ONBASE SCANS) CO2 (External) 26 20 - 32 mmol/L NON-INTERFACED (ONBASE SCANS) Urea Nitrogen (External) 12 7 - 30 mg/dL NON-INTERFACED (ONBASE SCANS) Creatinine (External) 1.3 0.5 - 1.5 mg/dL NON-INTERFACED (ONBASE SCANS) Calcium (External) 8.2(L) 8.4 - 10.6 mg/dL NON-INTERFACED (ONBASE SCANS) Blood 10/25/2021 6:55 AM CDT Narrative AMNAE PFT - 11/12/2021 3:44 PM CDT Verified by Brisa Jackson on 11/12/2021. Provider Outside LAB - BLOOD ORDERABL ES Performing Organization Address [facility]/ZIP Co de Phone Number SAMANTHA PFT NON-INTERFACED (ONBASE SCANS) * (ABNORMAL) CBC with Platelets & Differential (10/25/2021 6:55 AM CDT) WBC Count (External) 1.66(LL) 4.50 - 11.00 K/uL NON-INTERFACE D (ONBASE SCANS) RBC Count (External) 2.67(L) 4.30 - 11.0 M/UL NON-INTERFACE D (ONBASE SCANS) Hemoglobin (External) 9.0(L) 13.5 - 17.5 gm/dL NON-INTERFACE D (ONBASE SCANS) Hematocrit (External) 26.3(L) 37.0 - 53.0 % NON-INTERFACE D (ONBASE SCANS) MCV (External) 99 80 - 100 fL NON-INTERFACE D (ONBASE SCANS) MCH (External) 34 26 - 34 pg NON-INTERFACE D (ONBASE SCANS) MCHC (External) 34 32 - 36 gm/dL NON-INTERFACE D (ONBASE SCANS) Platelet Count (External) 91(L) 140 - 440 K/uL NON-INTERFACE D (ONBASE SCANS) RDW (External) 14.9 11.5 - 15.5 % NON-INTERFACE D (ONBASE SCANS) % Neutrophils (External) 71.1 42.0 - 72.0 % NON-INTERFACE D (ONBASE SCANS) % Lymphocytes (External) 16.3(L) 20 - 44 % NON-INTERFACE D (ONBASE SCANS) % Monocytes (External) 9.6 0.0 - 11.0 % NON-INTERFACE D (ONBASE SCANS) % Eosinophils (External) 3.0 0.0 - 7.0 % NON-INTERFACE D (ONBASE SCANS) % Basophils (External) 0.0 0.0 - 3.0 % NON-INTERFACE D (ONBASE [...] Auto NO N-INTERFACE D (ONBASE SCANS) Blood 10/25/2021 6:55 AM CDT Narrative BREEZE PFT - 11/12/2021 3:44 PM CDT Verified by Brisa Jackson on 11/12/2021. Provider Outside LAB - BLOOD ORDERABL ES Performing Organization Address [facility]/ZIP Co de Phone Number BREEZE PFT NON-INTERFACED (ONBASE SCANS) * (ABNORMAL) External Lab Results (10/24/2021 3:53 PM CDT) Scan Lab Results (External) see scan(A) NON-INTERFACE D (ONBASE SCANS) Comment:CDIFF, C Diff. Tox 10/24/2021 3:53 PM CDT Narrative BREEZE PFT - 11/13/2021 9:26 AM CDT Verified by Pedrito Stallworth on 11/13/2021. [facility] Performing Organization Address [facility] Co de Phone Number BREEZE PFT NON-INTERFACED (ONBASE SCANS) * (ABNORMAL) D dimer quantitative (10/24/2021 9:00 AM CDT) Pathologist [facility] D Dimer Quantitative (External) 0.90(H) 0.00 - 0.50 ug/mL NON-INTERFACE D (ONBASE SCANS) Blood 10/24/2021 9:00 AM CDT Narrative BREEZE PFT - 11/12/2021 3:44 PM CDT Verified by Brisa Jackson on 11/12/2021. Provider Outside LAB - BLOOD ORDERABL Performing Organization Address [facility] Co de Phone Number BREEZE PFT NON-INTERFACED (ONBASE SCANS) * (ABNORMAL) Blood gas venous (10/24/2021 8:21 AM CDT) pH Venous (External) 7.506(H) 7.32 - 7.43 NON-INTERFACE D (ONBASE SCANS) pCO2 Venous (External) 33(L) 40 - 50 mm Hg NON-INTERFACE D (ONBASE SCANS) pO2 Venous (External) 134.0(H) 25 - 47 mm Hg NON-INTERFACE D (ONBASE SCANS) Bicarbonate Venous (External) 26 21 - 28 MMOL/l NON-INTERFACE D (ONBASE SCANS) Blood, venous 10/24/2021 8:2 1 AM CDT Narrative BREEZE PFT - 11/13/2021 9:26 AM CDT Verified by Pedrito Stallworth on 11/13/2021. [facility]ak[facility] LAB - BLOOD ORDERABL ES Performing Organization Address [facility] de Phone Number AMNAE PFT NON-INTERFACED (ONBASE SCANS) * (ABNORMAL) CRP inflammation (10/24/2021 8:21 AM CDT) CRP Inflammation (External) 4.7(H) 0.5 - 1.0 MG/DL NON-INTERFACE D (ONBASE SCANS) Blood 10/24/2021 8:21 AM CDT Narrative BREEZE PFT - 11/13/2021 9:26 AM CDT Verified by Pedrito Stallworth on 11/13/2021. [place] Y[facility] LAB - BLOOD ORDERABL ES Performing Organization Address [facility] de Phone Number AMNAE PFT NON-INTERFACED (ONBASE SCANS) * (ABNORMAL) Troponin I (10/24/2021 8:21 AM CDT) Troponin I (External) 0.13(H) 0.01 - 0.04 NG/ML NON-INTERFACED (ONBASE SCANS) Blood 10/24/2021 8:21 AM CDT Narrative BREEZE PFT - 11/13/2021 9:26 AM CDT Verified by Pedrito Stallworth on 11/13/2021. [facility] LAB - BLOOD ORDERABL ES Performing Organization Address [facility]/ZIP Co de Phone Number BREEZE PFT NON-INTERFACED (ONBASE SCANS) * Magnesium (10/24/2021 8:21 AM CDT) Magnesium (External) 1.5 1.5 - 2.6 mg/dL NON-INTERFACED (ONBASE SCANS) Blood 10/24/2021 8:21 AM CDT Narrative ERICKEZE PFT - 11/13/2021 9:26 AM CDT Verified by Pedrito Stallworth on 11/12/2021. [facility] Vargasraes LAB - BLOOD ORDERABL ES Performing Organization Address [facility] Co de Phone Number ERICKEZE PFT NON-INTERFACED (ONBASE SCANS) * (ABNORMAL) Hepatic function panel (10/24/2021 8:21 AM CDT) Protein Total (External) 5.6(L) 6.0 - 8.3 g/dL NON-INTERFACE D (ONBASE SCANS) Albumin (External) 3.2(L) 3.3 - 5.0 g/dL NON-INTERFACE D (ONBASE SCANS) Bilirubin Total (External) 2.4(H) 0.1 - 1.5 mg/dL NON-INTERFACE D (ONBASE SCANS) Bilirubin Direct (External) 0.4 0.0 - 0.5 mg/dL NON-INTERFACE D (ONBASE SCANS) AST (External) 27 12 - 35 U/L NON-INTERFACE D (ONBASE SCANS) ALT (External) 9 4 - 50 U/L NON- INTERFACE D (ONBASE SCANS) Alk Phosphatase (External) 48 40 - 150 U/L NON-INTERFACE D (ONBASE SCANS) Blood 10/24/2021 8:21 AM CDT Narrative AMNAE PFT - 11/13/2021 9:26 AM CDT Verified by Pedrito Stallworth on 11/13/2021. [facility]ak[facility] LAB - BLOOD ORDERABL ES Performing Organization Address [facility] Co de Phone Number AMNAE PFT NON-INTERFACED (ONBASE SCANS) * (ABNORMAL) Basic metabolic panel (10/24/2021 8:21 AM CDT) Sodium (External) 134(L) 135 - 149 mmol/L NON-INTERFACED (ONBASE SCANS) Potassium (External) 4.7 3.6 - 5.1 mmol/L NON-INTERFACED (ONBASE SCANS) Chloride (External) 104 96 - 114 mmol/L NON-INTERFACED (ONBASE SCANS) CO2 (External) 24 20 - 32 mmol/L NON-INTERFACED (ONBASE SCANS) Urea Nitrogen (External) 17 7 - 30 mg/dL NON-INTERFACED (ONBASE SCANS) Creatinine (External) 1.3 0.5 - 1.5 mg/dL NON-INTERFACED (ONBASE SCANS) Calcium (External) 8.5 8.4 - 10.6 mg/dL NON-INTERFACED (ONBASE SCANS) Blood 10/24/2021 8:21 AM CDT Narrative SAMANTHA PFT - 11/12/2021 3:44 PM CDT Verified by Brisa Jackson on 11/12/2021. Provider Outside LAB - BLOOD ORDERABL ES SAMANTHA PFTameka NON-INTERFACED (ONBASE SCANS) * (ABNORMAL) CBC with Platelets & Differential (10/24/2021 8:21 AM CDT) WBC Count (External) 2.77(L) 4.50 - 11.00 K/uL NON-INTERFACE D (ONBASE SCANS) RBC Count (External) 3.02(L) 4.30 - 11.0 M/UL NON-INTERFACE D (ONBASE SCANS) Hemoglobin (External) 10.1(L) 13.5 - 17.5 gm/dL NON-INTERFACE D (ONBASE SCANS) Hematocrit (External) 29.7(L) 37.0 - 53.0 % NON-INTERFACE D (ONBASE SCANS) MCV (External) 98 80 - 100 fL NON-INTERFACE D (ONBASE SCANS) MCH (External) 33 26 - 34 pg NON- INTERFACE D (ONBASE SCANS) MCHC (External) 34 32 - 36 gm/dL NON-INTERFACE D (ONBASE SCANS) Platelet Count (External) 150 140 - 440 K/uL NON-INTERFACE D (ONBASE SCANS) RDW (External) 15.1 11.5 - 15.5 % NON-INTERFACE D (ONBASE SCANS) % Neutrophils (External) 76.4(H) 42.0 - 72.0 % NON-INTERFACE D (ONBASE SCANS) % Lymphocytes (External) 14.1(L) 20 - 44 % NON-INTERFACE D (ONBASE SCANS) % Monocytes (External) 7.6 0.0 - 11.0 % NON-INTERFACE D (ONBASE SCANS) % Eosinophils (External) 1.1 0.0 - 7.0 % NON-INTERFACE D (ONBASE SCANS) % Basophils (External) 0.4 0.0 - 3.0 % NON-INTERFACE D (ONBASE SCANS) Absolute Neutrophils (External) 2.10 1.7 - 7.0 K/uL NON-INTERFACE D (ONBASE SCANS) Absolute Lymphocytes (External) 0.40(L) 0.90 - 2.90 K/uL NON-INTERFACE D (ONBASE SCANS) Absolute Monocytes (External) 0.20 0.00 - 0.90 K/UL NON-INTERFACE D (ONBASE SCANS) Absolute Eosinophils (External) 0.00 0.00 - 0.50 K/uL NON-INTERFACE D (ONBASE SCANS) Absolute Basophils (External) 0.00 0.00 - 0.30 K/uL NON-INTERFACE D (ONBASE SCANS) Absolute Immature Granulocytes (External) 0.01 0.00 - 0.30 K/uL NON-INTERFACE D (ONBASE SCANS) Method (External) Auto NO N-INTERFACE D (ONBASE SCANS) Blood 10/24/2021 8:21 AM CDT Narrative SAMANTHA PFT - 11/12/2021 3:44 PM CDT Verified by Brisa Jackson on 11/12/2021. Provider Outside LAB - BLOOD ORDERABL ES SAMANTHA PFTameka NON-INTERFACED (ONBASE SCANS) * (ABNORMAL) Troponin I (10/23/2021 9:30 AM CDT) Troponin I (External) 0.40(H) 0.01 - 0.04 ng/mL NON-INTERFACED (ONBASE SCANS) Blood 10/23/2021 9:30 AM CDT Narrative BREEZE PFT - 11/13/2021 9:26 AM CDT Verified by Pedrito Stallworth on 11/12/2021. [facility] [facility] LAB - BLOOD ORDERABL ES Performing Organization Address [facility] Co de Phone Number BREEZE PFT NON-INTERFACED (ONBASE SCANS) * Lipase (10/23/2021 6:30 AM CDT) Lipase Level Low Scale (External) 28 23 - 300 U/L NON-INTERFACED (ONBASE SCANS) Blood 10/23/2021 6:30 AM CDT Narrative BREEZE PFT - 11/13/2021 9:26 AM CDT Verified by Pedrito Stallworth on 11/12/2021. [facility]ak[facility] LAB - BLOOD ORDERABL ES Performing Organization Address [facility] de Phone Number BREEZE PFT NON-INTERFACED (ONBASE SCANS) * Lactic acid whole blood (10/23/2021 6:30 AM CDT) Lactic Acid (External) 0.6 0.5 - 1.9 mmol/L NON-INTERFACED (ONBASE SCANS) Blood 10/23/2021 6:30 AM CDT Narrative BREEZE PFT - 11/13/2021 9:26 AM CDT Verified by Pedrito Stallworth on 11/12/2021. [facility] LAB - BLOOD ORDERABL ES Performing Organization Address [facility] Co de Phone Number BREEZE PFT NON-INTERFACED (ONBASE SCANS) * (ABNORMAL) CRP inflammation (10/23/2021 6:30 AM CDT) CRP Inflammation (External) 2.0(H) 0.5 - 1.0 mg/dL NON-INTERFACE D (ONBASE SCANS) Blood 10/23/2021 6:30 AM CDT Narrative BREEZE PFT - 11/13/2021 9:26 AM CDT Verified by Pedrito Stallworth on 11/12/2021. [facility] LAB - BLOOD ORDERABL ES Performing Organization Address [facility] de Phone Number AMNAE PFT NON-INTERFACED (ONBASE SCANS) * (ABNORMAL) Lactate Dehydrogenase (10/23/2021 6:30 AM CDT) LD (External) 665(H) 313 - 618 U/L NON-INTERFACED (ONBASE SCANS) Blood 10/23/2021 6:30 AM CDT Narrative AMNAE PFT - 11/13/2021 9:26 AM CDT Verified by Pedrito Stallworth on 11/12/2021. [facility] BourgeoisY[facility] LAB - BLOOD ORDERABL Performing Organization Address [facility] de Phone Number ERICKEZE PFT NON-INTERFACED (ONBASE SCANS) * (ABNORMAL) Hepatic function panel (10/23/2021 6:30 AM CDT) Protein Total (External) 5.6(L) 6.0 - 8.3 g/dL NON-INTERFACE D (ONBASE SCANS) Albumin (External) 3.5 3.3 - 5.0 g/dL NON-INTERFACE D (ONBASE SCANS) Bilirubin Total (External) 2.3(H) 0.1 - 1.5 mg/dL NON-INTERFACE D (ONBASE SCANS) Bilirubin Direct (External) 0.5 0.0 - 0.5 mg/dL NON-INTERFACE D (ONBASE SCANS) AST (External) 21 12 - 35 U/L NON-INTERFACE D (ONBASE SCANS) ALT (External) 8 4 - 50 U/L NON- INTERFACE D (ONBASE SCANS) Alk Phosphatase (External) 61 40 - 150 U/L NON-INTERFACE D (ONBASE SCANS) Blood 10/23/2021 6:30 AM CDT Narrative BREEZE PFT - 11/13/2021 9:26 AM CDT Verified by Pedrito Stallworth on 11/12/2021. [facility] LAB - BLOOD ORDERABL ES Performing Organization Address [facility] Co de Phone Number BREEZE PFT NON-INTERFACED (ONBASE SCANS) * (ABNORMAL) Basic metabolic panel (10/23/2021 6:30 AM CDT) Sodium (External) 134(L) 135 - 149 mmol/L NON-INTERFACED (ONBASE SCANS) Potassium (External) 4.6 3.6 - 51 mmol/L NON-INTERFACED (ONBASE SCANS) Chloride (External) 105 96 - 114 mmol/L NON-INTERFACED (ONBASE SCANS) CO2 (External) 26 20 - 32 mmol/L NON-INTERFACED (ONBASE SCANS) Urea Nitrogen (External) 22 7 - 30 mg/dL NON-INTERFACED (ONBASE SCANS) Creatinine (External) 1.4 0.5 - 1.5 mg/dl NON-INTERFACED (ONBASE SCANS) Calcium (External) 8.8 8.4 - 10.6 mg/dL NON-INTERFACED (ONBASE SCANS) Glucose (External) 168(H) 60 - 115 mg/dL NON-INTERFACED (ONBASE SCANS) Blood 10/23/2021 6:30 AM CDT Subhash WOOE PFT - 11/13/2021 9:26 AM CDT Verified by Pedrito Stallworth on 11/12/2021. [facility] - BLOOD ORDERABL ES Performing Organization Address [facility]/ZIP Co de Phone Number [facility] PFT NON-INTERFACED (ONBASE SCANS) * (ABNORMAL) CBC with Platelets & Differential (10/23/2021 6:30 AM CDT) WBC Count (External) 5.11 4.50 - 11.00 K/uL NON-INTERFACE D (ONBASE SCANS) RBC Count (External) 3.24(L) 4.30 - 11.0 M/UL NON-INTERFACE D (ONBASE SCANS) Hemoglobin (External) 10.8(L) 13.5 - 17.5 gm/dL NON-INTERFACE D (ONBASE SCANS) Hematocrit (External) 31.7(L) 37.0 - 53.0 % NON-INTERFACE D (ONBASE SCANS) MCV (External) 98 80 - 100 fL NON-INTERFACE D (ONBASE SCANS) MCH (External) 33 26 - 34 pg NON- INTERFACE D (ONBASE SCANS) MCHC (External) 34 32 - 36 gm/dL NON-INTERFACE D (ONBASE SCANS) Platelet Count (External) 125(L) 140 - 440 K/uL NON-INTERFACE D (ONBASE SCANS) RDW (External) 15.4 11.5 - 15.5 % NON-INTERFACE D (ONBASE SCANS) % Neutrophils (External) 82.4(H) 42.0 - 72.0 % NON-INTERFACE D (ONBASE SCANS) % Lymphocytes (External) 7.0(L) 20 - 44 % NON-INTERFACE D (ONBASE SCANS) % Monocytes (External) 9.8 0.0 - 11.0 % NON-INTERFACE D (ONBASE SCANS) % Eosinophils (External) 0.4 0.0 - 7.0 % NON-INTERFACE D (ONBASE SCANS) % Basophils (External) 0.2 0.0 - 3.0 % NON-INTERFACE D (ONBASE SCANS) Absolute Neutrophils (External) 4.20 1.7 - 7.0 K/uL NON-INTERFACE D (ONBASE SCANS) Absolute Lymphocytes (External) 0.40(L) 0.90 - 2.90 K/uL NON-INTERFACE D (ONBASE SCANS) Absolute Monocytes (External) 0.50 0.00 - 0.90 K/UL NON-INTERFACE D (ONBASE SCANS) Absolute Eosinophils (External) 0.02 0.00 - 0.50 K/uL NON-INTERFACE D (ONBASE SCANS) Absolute Basophils (External) 0.01 0.00 - 0.30 K/uL NON-INTERFACE D (ONBASE SCANS) Absolute Immature Granulocytes (External) 0.01 0.00 - 0.30 K/uL NON-INTERFACE D (ONBASE SCANS) Method (External) Auto NO N-INTERFACE D (ONBASE SCANS) Blood 10/23/2021 6:30 AM CDT Narrative [facility] PFT - 11/12/2021 3:44 PM CDT Verified by Brisa Jackson on 11/12/2021. Provider [facility] LAB - BLOOD ORDERABL ES Performing Organization Address [facility] Co de Phone Number BREEZE PFT NON-INTERFACED (ONBASE SCANS) * (ABNORMAL) Troponin I (10/22/2021 8:30 PM CDT) Troponin I (External) 0.92(H) 0.01 - 0.04 ng/ml NON-INTERFACED (ONBASE SCANS) Blood 10/22/2021 8:30 PM CDT Narrative BREEZE PFT - 11/13/2021 9:26 AM CDT Verified by Pedrito Stallworth on 11/13/2021. [place] [facility] LAB - BLOOD ORDERABL Performing Organization Address [facility] de Phone Number BREEZE PFT NON-INTERFACED (ONBASE SCANS) * Lactic acid whole blood (10/22/2021 5:08 PM CDT) Lactic Acid (External) 1.4 0.5 - 1.9 mmol/L NON-INTERFACED (ONBASE SCANS) Blood 10/22/2021 5:08 PM CDT Narrative BREEZE PFT - 11/13/2021 9:26 AM CDT Verified by Pedrito Stallworth on 11/13/2021. [place] [facility] LAB - BLOOD ORDERABL ES Performing Organization Address [facility] de Phone Number BREEZE PFT NON-INTERFACED (ONBASE SCANS) * (ABNORMAL) Troponin I (10/22/2021 5:08 PM CDT) Troponin I (External) 0.99(H) 0.01 - 0.04 ng/ml NON-INTERFACED (ONBASE SCANS) Blood 10/22/2021 5:08 PM CDT Narrative BREEZE PFT - 11/13/2021 9:26 AM CDT Verified by Pedrito Stallworth on 11/13/2021. [place] [facility] LAB - BLOOD [facility] Performing Organization Address [facility] de Phone Number ERICKEZE PFT NON-INTERFACED (ONBASE SCANS) * (ABNORMAL) Glucose (10/22/2021 3:30 PM CDT) Glucose (External) 166(H) 60 - 115 MG/DL NON-INTERFACED (ONBASE SCANS) Blood 10/22/2021 3:30 PM CDT Narrative BREEZE PFT - 11/13/2021 9:26 AM CDT Verified by Pedrito Stallworth on 11/13/2021. [place] [facility] LAB - BLOOD [facility] Performing Organization Address [facility] Phone Number ERICKEZE PFT NON-INTERFACED (ONBASE SCANS) * (ABNORMAL) Troponin I (10/22/2021 8:05 AM CDT) Troponin I (External) 0.33(H) 0.01 - 0.04 ng/mL NON-INTERFACED (ONBASE SCANS) Blood 10/22/2021 8:05 AM CDT Narrative BREEZE PFT - 11/13/2021 9:26 AM CDT Verified by Pedrito Stallworth on 11/12/2021. [place] [facility] LAB - BLOOD [facility] Performing Organization Address [facility] de Phone Number ERICKEZE PFT NON-INTERFACED (ONBASE SCANS) * (ABNORMAL) Blood gas venous (10/22/2021 4:40 AM CDT) pH Venous (External) 7.427 7.32 - 7.43 NON-INTERFACE D (ONBASE SCANS) pCO2 Venous (External) 34(L) 40 - 50 mm Hg NON-INTERFACE D (ONBASE SCANS) pO2 Venous (External) 56.4(H) 25 - 47 mm Hg NON-INTERFACE D (ONBASE SCANS) Bicarbonate Venous (External) 22 21 - 28 MMOL/l NON-INTERFACE D (ONBASE SCANS) Blood, venous 10/22/2021 4:4 0 AM CDT Narrative BREEZE PFT - 11/13/2021 9:26 AM CDT Verified by Pedrito Stallworth on 11/13/2021. [place] Bhak[facility] LAB - BLOOD ORDERABL Performing Organization Address [facility] de Phone Number BREEZE PFT NON-INTERFACED (ONBASE SCANS) * Lactic acid whole blood (10/22/2021 4:40 AM CDT) Lactic Acid (External) 1.4 0.5 - 1.9 mmol/L NON-INTERFACED (ONBASE SCANS) Blood 10/22/2021 4:40 AM CDT Narrative BREEZE PFT - 11/13/2021 9:26 AM CDT Verified by Pedrito Stallworth on 11/13/2021. [place] [facility] Performing Organization Address [facility] de Phone Number ERICKEZE PFT NON-INTERFACED (ONBASE SCANS) * (ABNORMAL) Lactate Dehydrogenase (10/22/2021 4:40 AM CDT) LD (External) 637(H) 313 - 618 U/L NON-INTERFACED (ONBASE SCANS) Blood 10/22/2021 4:40 AM CDT Narrative BREEZE PFT - 11/13/2021 9:26 AM CDT Verified by Pedrito Stallworth on 11/12/2021. [place] Bhakta LAB - BLOOD ORDERABL Performing Organization Address [facility] de Phone Number BREEZE PFT NON-INTERFACED (ONBASE SCANS) * (ABNORMAL) N terminal pro BNP outpatient (10/22/2021 4:40 AM CDT) N-Terminal Pro BNP (External) 682(H) 0 - 125 PG/mL NON-INTERFACED (ONBASE SCANS) Blood 10/22/2021 4:40 AM CDT Narrative BREEZE PFT - 11/13/2021 9:26 AM CDT Verified by Pedrito Stallworth on 11/12/2021. [place] BourgeoisYony LAB - BLOOD ORDERABL ES Performing Organization Address [facility] de Phone Number ERICKEZE PFT NON-INTERFACED (ONBASE SCANS) * (ABNORMAL) Troponin I (10/22/2021 4:40 AM CDT) Pathologist [facility] Troponin I (External) 0.12(H) 0.01 - 0.04 ng/ml NON-INTERFACED (ONBASE SCANS) Blood 10/22/2021 4:40 AM CDT Narrative BREEZE PFT - 11/13/2021 9:26 AM CDT Verified by Pedrito Stallworth on 11/13/2021. [place] Bhak[facility] LAB - BLOOD ORDERABL Performing Organization Address [facility] de Phone Number ERICKEZE PFT NON-INTERFACED (ONBASE SCANS) * (ABNORMAL) Basic metabolic panel (10/22/2021 4:40 AM CDT) Sodium (External) 136 135 - 149 mmol/L NON-INTERFACED (ONBASE SCANS) Potassium (External) 5 3.6 - 5.1 mmol/l NON-INTERFACED (ONBASE SCANS) Chloride (External) 102 96 - 114 mmol/L NON-INTERFACED (ONBASE SCANS) CO2 (External) 20 20 - 32 mmol/L NON-INTERFACED (ONBASE SCANS) Urea Nitrogen (External) 25 7 - 30 mg/dl NON-INTERFACED (ONBASE SCANS) Creatinine (External) 1.6(H) 0.5 - 1.5 mg/dL NON-INTERFACED (ONBASE SCANS) Calcium (External) 8.9 8.4 - 10.6 mg/dL NON-INTERFACED (ONBASE SCANS) Glucose (External) 247(H) 60 - 115 mg/dL NON-INTERFACED (ONBASE SCANS) Blood 10/22/2021 4:40 AM CDT Narrative SAMANTHA PFT - 11/13/2021 9:26 AM CDT Verified by Pedrito Stallworth on 11/12/2021. [place] [facility] LAB - BLOOD ORDERABL ES SAMANTHA PFT NON-INTERFACED (ONBASE SCANS) * (ABNORMAL) UA with Microscopic (10/22/2021 1:01 AM CDT) Color Urine (External) Yellow Yellow NON-INTERFAC ED (ONBASE SCANS) Appearance Urine (External) Clear Clear NON-INTERFAC ED (ONBASE SCANS) Glucose Urine (External) Negative Negative NON-INTERFAC ED (ONBASE SCANS) Bilirubin Urine (External) 1+(A) Negative NON-INTERFAC ED (ONBASE SCANS) Ketones Urine (External) 4+(A) Negative NON-INTERFAC ED (ONBASE SCANS) Specific [place] Urine (External) 1.015 1.000 - 1.030 NON-INTERFAC ED (ONBASE SCANS) Blood Urine (External) Negative Negative NON-INTERFAC ED (ONBASE SCANS) pH Urine (External) 8.0 5.0 - 8.5 NON-INTERFAC ED (ONBASE SCANS) Protein Albumin Ur (External) Trace(A) Negative NON-INTERFAC ED (ONBASE SCANS) Urobilinogen (External) 0.2 0.2 - 1.0 NON-INTERFAC ED (ONBASE SCANS) Nitrites Urine (External) Negative Negative NON-INTERFAC ED (ONBASE SCANS) Leukocyte Esterase Urine (External) Negative Negative NON-INTERFAC ED (ONBASE SCANS) WBC Urine (External) 0-2 0 - 2 NON-INTERFAC ED (ONBASE SCANS) RBC Urine (External) 0-2 0 - 5 NON-INTERFAC ED (ONBASE SCANS) Squamous Epithelial Urine (External) Few None-Few NON-INTERFAC ED (ONBASE SCANS) Bacteria Urine (External) Few(A) None NON-INTERFAC ED (ONBASE SCANS) Urine 10/22/2021 1:01 AM CDT Narrative BREEZE PFT - 11/12/2021 3:44 PM CDT Verified by Brisa Jackson on 11/12/2021. Provider Outside LAB - URINE ORDERABL ES Performing Organization Address [facility]/ZIP Co de Phone Number BREEZE PFT NON-INTERFACED (ONBASE SCANS) * External Lab Results (10/22/2021 12:18 AM CDT) Scan Lab Results (External) Negative NON-INTERFACE D (ONBASE SCANS) Comment: Influenza A Influenza B 10/22/2021 12:1 8 AM CDT Narrative BREEZE PFT - 11/13/2021 9:26 AM CDT Verified by Pedrito Stallworth on 11/13/2021. [place] [facility]akta LABORATORY Performing Organization Address [facility] de Phone Number BREEZE PFT NON-INTERFACED (ONBASE SCANS) * COVID-19 Virus (Coronavirus) by PCR (External Result) (10/21/2021 11:17 PM CDT) COVID-19 Virus by PCR (External Result) Negative Negative NON-INTERFACE D (ONBASE SCANS) 10/21/2021 11:1 7 PM CDT Narrative BREEZE PFT - 11/13/2021 9:26 AM CDT Verified by Pedrito Stallworth on 11/13/2021. [place] [facility] LABORATORY Performing Organization Address [facility]/ZIP Co de Phone Number BREEZE PFT NON-INTERFACED (ONBASE SCANS) * (ABNORMAL) External Lab Results (10/21/2021 11:10 PM CDT) Scan Lab Results (External) <0.01(L) 0.01 - 0.03 % NON-INTERFACE D (ONBASE SCANS) Comment:Ethanol 10/21/2021 11:1 0 PM CDT Narrative BREEZE PFT - 11/13/2021 9:26 AM CDT Verified by Pedrito Stallworth on 11/13/2021. [place] Bhak[facility] LABORATORY Performing Organization Address [facility] Co de Phone Number BREEZE PFT NON-INTERFACED (ONBASE SCANS) * (ABNORMAL) Blood gas venous (10/21/2021 11:10 PM CDT) pH Venous (External) 7.531(H) 7.32 - 7.43 NON-INTERFACE D (ONBASE SCANS) pCO2 Venous (External) 24(L) 40 - 50 mm Hg NON-INTERFACE D (ONBASE SCANS) pO2 Venous (External) 42.4 25 - 47 mm Hg NON-INTERFACE D (ONBASE SCANS) Bicarbonate Venous (External) 20(L) 21 - 28 MMOL/l NON-INTERFACE D (ONBASE SCANS) Blood, venous 10/21/2021 11: 10 PM CDT Narrative BREEZE PFT - 11/13/2021 9:26 AM CDT Verified by Pedrito Stallworth on 11/13/2021. [place] [facility] LAB - BLOOD ORDERABL ES Performing Organization Address [facility] de Phone Number BREEZE PFT NON-INTERFACED (ONBASE SCANS) * Lipase (10/21/2021 11:10 PM CDT) Lipase Level (External) 39 29 - 300 U/L NON-INTERFACED (ONBASE SCANS) Blood 10/21/2021 11:1 0 PM CDT Narrative BREEZE PFT - 11/13/2021 9:26 AM CDT Verified by Pedrito Stallworth on 11/12/2021. [place] [facility] LAB - BLOOD ORDERABL ES Performing Organization Address [facility] Co de Phone Number BREEZE PFT NON-INTERFACED (ONBASE SCANS) * (ABNORMAL) Lactic acid whole blood (10/21/2021 11:10 PM CDT) Lactic Acid (External) 3.0(H) 0.5 - 1.9 mmol/L NON-INTERFACED (ONBASE SCANS) Blood 10/21/2021 11:1 0 PM CDT Narrative BREEZE PFT - 11/13/2021 9:26 AM CDT Verified by Pedrito Stallworth on 11/13/2021. [place] [facility] LAB - BLOOD ORDERABL Performing Organization Address [facility] Co de Phone Number BREEZE PFT NON-INTERFACED (ONBASE SCANS) * (ABNORMAL) Lactate Dehydrogenase (10/21/2021 11:10 PM CDT) LD (External) 815(H) 313 - 618 IU/L NON-INTERFACED (ONBASE SCANS) Blood 10/21/2021 11:1 0 PM CDT Narrative BREEZE PFT - 11/13/2021 9:26 AM CDT Verified by Pedrito Stallworth on 11/13/2021. [place] Bhakta LAB - BLOOD [facility] Performing Organization Address [facility] de Phone Number BREEZE PFT NON-INTERFACED (ONBASE SCANS) * (ABNORMAL) N terminal pro BNP outpatient (10/21/2021 11:10 PM CDT) N-Terminal Pro BNP (External) 597(H) 0 - 125 pg/ml NON-INTERFACED (ONBASE SCANS) Blood 10/21/2021 11:1 0 PM CDT Narrative BREEZE PFT - 11/13/2021 9:26 AM CDT Verified by Pedrito Stallworth on 11/13/2021. [place] Bhak[facility] LAB - BLOOD ORDERABL Performing Organization Address [facility] Co de Phone Number BREEZE PFT NON-INTERFACED (ONBASE SCANS) * (ABNORMAL) Hepatic function panel (10/21/2021 11:10 PM CDT) Protein Total (External) 7.6 6.0 - 8.3 g/dL NON-INTERFACE D (ONBASE SCANS) Albumin (External) 4.7 3.3 - 5.0 g/dL NON-INTERFACE D (ONBASE SCANS) Bilirubin Total (External) 3.8(H) 0.1 - 1.5 mg/dL NON-INTERFACE D (ONBASE SCANS) Bilirubin Direct (External) 0.4 0.0 - 0.5 mg/dL NON-INTERFACE D (ONBASE SCANS) AST (External) 30 12 - 35 U/L NON-INTERFACE D (ONBASE SCANS) ALT (External) 12 4 - 50 U/L NON- INTERFACE D (ONBASE SCANS) Alk Phosphatase (External) 98 40 - 150 U/L NON-INTERFACE D (ONBASE SCANS) Blood 10/21/2021 11:1 0 PM CDT Narrative SAMANTHA PFT - 11/13/2021 9:26 AM CDT Verified by Pedrito Stallworth on 11/12/2021. [place] Bhak[facility] LAB - BLOOD ORDERABL ES SAMANTHA PF NON-INTERFACED (ONBASE SCANS) * (ABNORMAL) Basic metabolic panel (10/21/2021 11:10 PM CDT) Sodium (External) 134(L) 135 - 149 mmol/L NON-INTERFACED (ONBASE SCANS) Potassium (External) 5.8(H) 3.6 - 5.1 mmol/l NON-INTERFACED (ONBASE SCANS) Chloride (External) 101 96 - 114 mmol/L NON-INTERFACED (ONBASE SCANS) CO2 (External) 18(L) 20 - 32 mmol/L NON-INTERFACED (ONBASE SCANS) Urea Nitrogen (External) 24 7 - 30 mg/dl NON-INTERFACED (ONBASE SCANS) Creatinine (External) 1.9(H) 0.5 - 1.5 mg/dL NON-INTERFACED (ONBASE SCANS) Calcium (External) 9.7 8.4 - 10.6 mg/dL NON-INTERFACED (ONBASE SCANS) Glucose (External) 199(H) 60 - 115 mg/dL NON-INTERFACED (ONBASE SCANS) Blood 10/21/2021 11:1 0 PM CDT Narrative BREEZE PFT - 11/13/2021 9:26 AM CDT Verified by Pedrito Stallworth on 11/13/2021. [place] Bhakta LAB - BLOOD ORDERABL ES Performing Organization Address City/[facility]/ZIP Co de Phone Number BREEZE PFT NON-INTERFACED (ONBASE SCANS) * (ABNORMAL) Glucose (10/21/2021 10:45 PM CDT) Glucose (External) 208(H) 60 - 115 MG/DL NON-INTERFACED (ONBASE SCANS) Blood 10/21/2021 10:4 5 PM CDT Narrative BREEZE PFT - 11/13/2021 9:26 AM CDT Verified by Pedrito Stallworth on 11/13/2021. [place] Bhakta LAB - BLOOD ORDERABL ES Performing Organization Address [facility]/ZIP Co de Phone Number ERICKEZE PFT NON-INTERFACED (ONBASE SCANS) * (ABNORMAL) CBC with Platelets & Differential (10/21/2021 10:45 PM CDT) WBC Count (External) 3.54(L) 4.50 - 11.00 K/uL NON-INTERFACE D (ONBASE SCANS) RBC Count (External) 3.83(L) 4.30 - 11.0 M/UL NON-INTERFACE D (ONBASE SCANS) Hemoglobin (External) 12.9(L) 13.5 - 17.5 gm/dL NON-INTERFACE D (ONBASE SCANS) Hematocrit (External) 36.8(L) 37.0 - 53.0 % NON-INTERFACE D (ONBASE SCANS) MCV (External) 96 80 - 100 fL NON-INTERFACE D (ONBASE SCANS) MCH (External) 34 26 - 34 pg NON- INTERFACE D (ONBASE SCANS) MCHC (External) 35 32 - 36 gm/dL NON-INTERFACE D (ONBASE SCANS) Platelet Count (External) 145 140 - 440 K/uL NON-INTERFACE D (ONBASE SCANS) RDW (External) 14.8 11.5 - 15.5 % NON-INTERFACE D (ONBASE SCANS) % Neutrophils (External) 83.2(H) 42.0 - 72.0 % NON-INTERFACE D (ONBASE SCANS) % Lymphocytes (External) 8.5(L) 20 - 44 % NON-INTERFACE D (ONBASE SCANS) % Monocytes (External) 7.1 0.0 - 11.0 % NON-INTERFACE D (ONBASE SCANS) % Eosinophils (External) 0.6 0.0 - 7.0 % NON-INTERFACE D (ONBASE SCANS) % Basophils (External) 0.3 0.0 - 3.0 % NON-INTERFACE D (ONBASE SCANS) Absolute Neutrophils (External) 2.90 1.7 - 7.0 K/uL NON-INTERFACE D (ONBASE SCANS) Absolute Lymphocytes (External) 0.30(L) 0.90 - 2.90 K/uL NON-INTERFACE D (ONBASE SCANS) Absolute Monocytes (External) 0.30 0.00 - 0.90 K/UL NON-INTERFACE D (ONBASE SCANS) Absolute Eosinophils (External) 0.00 0.00 - 0.50 K/uL NON-INTERFACE D (ONBASE SCANS) Absolute Basophils (External) 0.00 0.00 - 0.30 K/uL NON-INTERFACE D (ONBASE SCANS) Absolute Immature Granulocytes (External) 0.01 0.00 - 0.30 K/uL NON-INTERFACE D (ONBASE SCANS) Method (External) Auto NO N-INTERFACE D (ONBASE SCANS) Blood 10/21/2021 10:4 5 PM CDT Narrative SAMANTHA PFT - 11/12/2021 3:44 PM CDT Verified by Brisa Jackson on 11/12/2021. 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, 07/10/16 rectal swab 06/21/2016 06/21/2016 documented as of this encounter Care Teams Board Certified Orthodontist Relationship Specialty Start Date End Date Rubén Boyle MD PCP - General Family Practice 03/08/16 Pamela Blanco COMMANDER POLICE RESERVES [facility] [address] [place], [place] [address] Referring Physician 07/13/16 Pedro Segura MD [facility] [address] [place], [place] [id number] Nephrology 10/03/16 Freddy Craft MD [address] [facility] [address] [place] [address] Assigned Gastroenterology Provider 02/08/20 Abdifatah Van MD [address] [facility] [address] [place] [address] Assigned Nephrology Provider 07/13/20 11/07/23 Nicole Carranza NP 420 [facility] [address] [place] [address] Assigned Heart and Vascular Provider 01/09/22 Andressa Ruiz PA-C 420 [facility] [address]03 [place] [address] Physician Machine Captain Endocrinology, Diabetes, and Metabolism 03/01/22 Ashlyn Storm, RN [facility] [address] [place], [place] [id number] Registered Nurse 03/03/22 09/15/22 Rubén Gunter [facility] [address] [place] [address] Assigned MTM Pharmacist 02/27/22 Andressa Ruiz PA-C 420 [facility] [address] [place], [place] [address] Assigned Endocrinology Provider 03/13/22 09/07/23 Suzan Harry MD [address] [place], [place] [address] Nephrology 06/30/23 Yasmeen Powers MD [address] [place] [address] Nephrology 10/24/23 Yasmeen Powers MD [address] [place] [address] Assigned Nephrology Provider 11/08/23 documented as of this encounter
--- OUTSIDE RECORDS SUMMARY | 2023-12-15 10:07 | XMS_ITS | Encounter Summary ---
Author Organization [place] Address [address] [place] [address] Care Team Providers Care Shredding Machine Operator Name Role Phone Rubén Boyle MD Primary Care Provider Pamela Blanco RISK CONTROL PRODUCT LIABILITY DIRECTOR Unavailable Pedro Segura MD Unavailable [phone] Freddy Craft MD Unavailable Abdifatah Van MD Unavailable Nicole Carranza RISK CONTROL PRODUCT LIABILITY DIRECTOR Unavailable [phone] Andressa Ruiz PA-C Unavailable Ashlyn Storm RN Unavailable Rubén Gunter [facility] Unavailable Andressa Ruiz-C Unavailable Suzan Harry MD Unavailable [phone] Yasmeen Powers MD Unavailable [phone] Yasmeen Powers MD Unavailable [phone] Encounter Details Date Type Department Care Team (Late st Contact Info) Description 06/25/2021 [facility] [address] [place] [address] Calli Hall RN Social History [...] documented as of this encounter Care Teams Shredding Machine Operator Relationship Specialty Start Date End Date Rubén Boyle MD PCP - General Family Practice 03/08/16 Pamela Blanco RISK CONTROL PRODUCT LIABILITY DIRECTOR [facility] [address] [place], [place] [address] Referring Physician 07/13/16 Pedro Segura MD [facility] [address] [place], [place] [address] Nephrology 10/03/16 Freddy Craft MD 516 [facility] [address] [place], [place] [address] Assigned Gastroenterology Provider 02/08/20 Abdifatah Van MD [address] [facility] [address] [place], [place] [address] Assigned Nephrology Provider 07/13/20 11/07/23 Nicole Carranza NP 420 [facility] [address] [place], [place] [address] Assigned Heart and Vascular Provider 01/09/22 Andressa Ruiz PA-C 420 [facility] [address] [place], [place] [address] Physician Senior Java Software Developer Endocrinology, Diabetes, and Metabolism 03/01/22 Ashlyn Storm, RN [facility] [address] [place], [place] [address] Registered Nurse 03/03/22 09/15/22 Rubén Gunter [facility] [address] [place] [address] Assigned MTM Pharmacist 02/27/22 Andressa Ruiz PA-C 420 [facility] [address] [place], [place] [address] Assigned Endocrinology Provider 03/13/22 09/07/23 Suzan Harry MD 420 [place] [address] Nephrology 06/30/23 Yasmeen Powers MD 500 [place] [address] Nephrology 10/24/23 Yasmeen Powers MD [address] [place] [address] Assigned Nephrology Provider 11/08/23 documented as of this encounter
--- OUTSIDE RECORDS SUMMARY | 2023-12-15 10:07 | XMS_ITS | Encounter Summary ---
Author Organization [place] Address [address] [place] [address] Care Team Providers Care Apartment Coordinator Name Role Phone Rubén Boyle MD Primary Care Provider [phone] Pamela Blanco STOREROOM CLERK Unavailable Pedro Segura MD Unavailable Freddy Craft MD Unavailable Abdifatah Van MD Unavailable Nicole Carranza STOREROOM CLERK Unavailable [phone] Andressa Ruiz-C Unavailable Ashlyn Storm RN Unavailable Rubén Gunter [facility] Unavailable Andressa Ruiz-C Unavailable Suzan Harry MD Unavailable [phone] Yasmeen Powers MD Unavailable [phone] Yasmeen Powers MD Unavailable [phone] Encounter Details Date Type Department Care Team (Late st Contact Info) Description 10/22/2021 External Order Results [facility] [address] [place] [address] Outside, Provider Social History Tobacco Use Types [...] documented as of this encounter Care Teams Apartment Coordinator Relationship Specialty Start Date End Date Rubén Boyle MD PCP - General Family Practice 03/08/16 Pamela Blanco STOREROOM CLERK [facility] [address] [place] [address] Referring Physician 07/13/[address] [facility] [address] [place] [address] Nephrology 10/03/16 Freddy Craft MD [facility] [place], [place] [address] Assigned Gastroenterology Provider 02/08/20 Abdifatah Van MD 717 [facility] [address] [place], [place] [address] Assigned Nephrology Provider 07/13/20 11/07/23 Nicole Carranza NP 420 [facility] [address] [place] [address] Assigned Heart and Vascular Provider 01/09/22 Andressa Ruiz PA-C 420 [facility] [address]03 [place] [address] Physician Procurement Inspector Endocrinology, Diabetes, and Metabolism 03/01/22 Ashlyn Storm, RN [facility] [address] [place] [address] Registered Nurse 03/03/22 09/15/22 Rubén Gunter [facility] [address] [place] [address] Assigned MTM Pharmacist 02/27/22 Andressa Ruiz PA-C 420 [facility] [address]03 [place] [address] Assigned Endocrinology Provider 03/13/22 09/07/23 Suzan Harry MD [address] [place] [address] Nephrology 06/30/23 Yasmeen Powers MD 500 [place] [address] Nephrology 10/24/23 Yasmeen Powers MD 500 [place] [address] Assigned Nephrology Provider 11/08/23 documented as of this encounter
--- OUTSIDE RECORDS SUMMARY | 2023-12-15 10:08 | XMS_ITS | Encounter Summary ---
Author Organization [facility] Address [address] [place] [address] Care Team Providers Care Traffic Control Specialist Name Role Phone Rubén Boyle MD Primary Care Provider Pamela Blanco PORTAL DEVELOPER Unavailable Pedro Segura MD Unavailable [phone] Freddy Craft MD Unavailable [phone] Abdifatah Van MD Unavailable Nicole Carranza PORTAL DEVELOPER Unavailable [phone] Andressa Ruiz-C Unavailable Ashlyn Storm RN Unavailable [phone] Rubén Gunter [facility] Unavailable Andressa Ruiz-C Unavailable Suzan Harry MD Unavailable [phone] Yasmeen Powers MD Unavailable [phone] Yasmeen Powers MD Unavailable [phone] Encounter Details Date Type Department Care Team (Latest Contact Info) Description 02/05/[address] [facility] [address] [place] [address] Outside, Provider History of liver transplant (H); Status post kidney transplant; Long-term use of immunosuppressant medication Social History Tobacco Use Types Packs/Day Years Used Date Smoking Tobacco: Former Cigarettes Q uit: 04/18/1985 Smokeless Tobacco: Never Comments:quit years ago Alcohol Use Standard Drinks/Week Comments No 0 (1 standard drink = 0.6 oz pur e alcohol) quit Dec 2015 PHQ-2 Answer Date Recorded PHQ-2 Score 0 04/26/2018 Sex and Gender Information Value Date Recorded Sex Assigned at Not on file Gender Identity Not on file Sexual Orientation Not on file documented as of this encounter Plan of Treatment Not on file documented as of this encounter Procedures Procedure Name Priority Date/Time Associated Diagnosis Comments CBC WITH PLATELETS & DIFFERENTIAL Routine 02/05/2020 12:00 PM CDT TACROLIMUS BY TANDEM MASS SPECTROMETRY Routine 02/05/2020 12:00 PM CDT History of liver transplant (H) Status post kidney transplant Long-term use of immunosuppressant medication MAGNESIUM Routine 02/05/2020 12:00 PM CDT HEPATIC FUNCTION PANEL Routine 02/05/2020 12:00 PM CDT BASIC METABOLIC PANEL Routine 02/05/2020 12:00 PM CDT documented in this encounter Results * Tacrolimus level (02/05/2020 12:00 PM CDT) Tacrolimus(FK-5 06) (External) 13.5 See scan ng/mL LABDE SCAN Tacrolimus Last Dose (External) 02/04/2020 @2030 LABDE SCAN Blood specimen (specimen) 02/05/2020 12:00 PM CDT Narrative [facility] PFT - 02/08/2020 3:19 PM CDT Verified by Melissa Otto on 02/08/2020. Freddy Dumont MD LAB - BLOOD ORD ERABLES [facility] PFT LABDE SCAN * (ABNORMAL) CBC with platelets differential (02/05/2020 12:00 PM CDT) WBC Count (External) 2.33(L) 5.00 - 10.00 K/UL LABDE SCAN RBC Count (External) 3.92(L) 4.32 - 5.72 M/UL LABDE SCAN Hemoglobin (External) 12.6(L) 13.5 - 17.5 GM/DL LABDE SCAN Hematocrit (External) 37.0(L) 38.8 - 50.0 % LABDE SCAN MCV (External) 94 81 - 95 FL LABDE SCAN MCH (External) 32 27 - 34 PG LABDE SCAN MCHC (External) 34 32 - 36 GM/DL LABDE SCAN Platelet Count (External) 147(L) 150 - 450 K/UL LABDE SCAN % Neutrophils (External) 64.9 50.0 - 70.0 % LABDE SCAN % Lymphocytes (External) 21.0(L) 25.0 - 45.0 % LABDE SCAN % Monocytes (External) 9.4 0.00 - 11.0 % LABDE SCAN % Eosinophils (External) 3.4 0.0 - 7.0 % LABDE SCAN % Basophils (External) 0.4 0.0 - 3.0 % LABDE SCAN Absolute Neutrophils (External) 1.51(L) 1.70 - 7.00 K/UL LABDE SCAN Absolute Lymphocytes (External) 0.49(L) 0.90 - 2.90 K/UL LABDE SCAN Absolute Monocytes (External) 0.22(L) 0.30 - 0.90 K/UL LABDE SCAN Absolute Eosinophils (External) 0.08 0.00 - 0.50 K/UL LABDE SCAN Absolute Basophils (External) 0.01 0.00 - 0.20 K/UL LABDE SCAN % Immature Granulocytes (External) 0.9 % LABDE SCAN Absolute Immature Granulocytes (External) 0.02 K/uL LABDE SCAN Blood specimen (specimen) 02/05/2020 12:00 PM CDT Narrative SAMANTHA MARTINEZT - 02/06/2020 12:16 PM CDT Verified by Yamil Santo on 02/06/2020. Patient Reported LAB - BLOOD ORDERABL ES SAMANTHA PFT LABDE SCAN * Magnesium (02/05/2020 12:00 PM CDT) Magnesium (External) 1.5 1.5 - 2.6 mg/dL LABDE SCAN Blood specimen (specimen) 02/05/2020 12:00 PM CDT [facility] 02/06/2020 12:16 PM CDT Verified by Yamil Santo on 02/06/2020. Patient Reported LAB - [facility]LOOD [facility]L [facility] * (ABNORMAL) Basic metabolic panel (02/05/2020 12:00 PM CDT) Pathologist [facility] Calcium (External) 8.9 8.4 - 10.6 mg/dL LABDE SCAN Urea Nitrogen (External) 20 7 - 30 mg/dL LABDE SCAN Creatinine (External) 1.4 0.5 - 1.5 mg/dL LABDE SCAN Glucose (External) 207(H) 60 - 115 mg/dL LABDE SCAN Sodium (External) 137 135 - 149 mmol/L LABDE SCAN Potassium (External) 4.3 3.6 - 5.1 mmol/L LABDE SCAN Chloride (External) 105 96 - 114 mmol/L LABDE SCAN CO2 (External) 25 20 - 32 mmol/L LABDE SCAN Blood specimen (specimen) 02/05/2020 12:00 PM CDT Narrative [facility] PFT - 02/06/2020 12:16 PM CDT Verified by Yamil Santo on 02/06/2020. Patient Reported LAB - BLOOD ORDERABL ES [facility] PFT LABDE SCAN * Hepatic panel (02/05/2020 12:00 PM CDT) ALT (External) 15 4 - 50 U/L LABDE SCAN AST (External) 28 12 - 35 U/L LABDE SCAN Alk Phosphatase (External) 72 40 - 150 U/L LABDE SCAN Bilirubin Total (External) 1.1 0.0 - 1.5 mg/dL LABDE SCAN Bilirubin Direct (External) 0.4 0.0 - 0.5 MG/DL LABDE SCAN Albumin (External) 3.8 3.3 - 5.0 g/dL LABDE SCAN Protein Total (External) 6.4 6.0 - 8.3 g/dL LABDE SCAN Blood specimen (specimen) 02/05/2020 12:00 PM CDT Narrative SAMANTHA PFT - 02/06/2020 12:16 PM CDT Verified by Yamil Santo on 02/06/2020. Patient Reported LAB - BLOOD ORDERABL ES SAMANTHA PFT LABDE SCAN documented in this encounter Visit Diagnoses Diagnosis History of liver transplant (H) Liver replaced by transplant Status post kidney transplant Long-term use of immunosuppressant medication Encounter for long-term (current) use of other medications documented in this encounter Additional Health Concerns Infection Onset Date Last Indicated Resolved Time 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/16 urine, 07/10/16 rectal swab 06/21/2016 06/21/2016 documented as of this encounter Care Teams Traffic Control Specialist Relationship Specialty Start Date End Date Rubén Boyle MD PCP - General Family Practice 03/08/16 Pamela Blanco NP [facility] [address] [place], [place] 522837 Referring Physician 07/13/16 Pedro Segura MD [facility] [address] [place], [place] [address]797 Nephrology 10/03/16 Freddy Craft MD [address] [place] [address] [id number] Assigned Gastroenterology Provider 02/08/20 Abdifatah Van MD 717 [facility] [address] [place] [address] Assigned Nephrology Provider 07/13/20 11/07/23 Nicole Carranza NP 420 [facility] [address] [place], [place] [address]85 Assigned Heart and Vascular Provider 01/09/22 Andressa Ruiz PA-C 420 [facility] [address]03 [place], [place] [address] Physician Activities Director Scouting Endocrinology, Diabetes, and Metabolism 03/01/22 Ashlyn Storm RN [facility] [address]11 [place], [place] 9[address]44 Registered Nurse 03/03/22 09/15/22 [facility] 909 [place], [place] [address]25 Assigned MTM Pharmacist 02/27/22 Andressa Ruiz PA-C [address] [facility] [address] [place], [place] 58[address]25 Assigned Endocrinology Provider 03/13/22 09/07/23 Suzan Harry MD [address] [place], [place] 3[address]65 Nephrology 06/30/23 Yasmeen Powers MD [address] [place] [address] Nephrology 10/24/23 Yasmeen Powers MD [address] [place] [address] Assigned Nephrology Provider 11/08/23 documented as of this encounter
--- OUTSIDE RECORDS SUMMARY | 2023-12-15 10:08 | XMS_ITS | Encounter Summary ---
Author Organization [facility] Address [address] [place] [address] Care Team Providers Care Hitch Technician Name Role Phone Rubén Boyle MD Primary Care Provider Pamela Blanco RETAIL CUSTOMER SERVICE SPECIALIST Unavailable [phone] Pedro Segura MD Unavailable [phone] Freddy Craft MD Unavailable Abdifatah Van MD Unavailable Nicole Carranza RETAIL CUSTOMER SERVICE SPECIALIST Unavailable [phone] Andressa Ruiz-C Unavailable Ashlyn Storm RN Unavailable [phone] Rubén Gunter [facility] Unavailable Andressa Ruiz-C Unavailable Suzan Harry MD Unavailable [phone] Yasmeen Powers MD Unavailable [phone] Yasmeen Powers MD Unavailable [phone] Encounter Details Date Type Department Care Team (Late st Contact Info) Description 08/06/2020 [facility] [address] [place] [address] Lashanda Hsieh, [facility] Social History Tobacco Use Types Packs/Day [...] Exposure Response Date Recorded In the last month, have you been in contact with someone who was confirmed or suspected to have Coronavirus / COVID-19? No / Unsure 08/06/2020 10:35 AM CDT documented as of this encounter Plan of Treatment Not on file documented as of this encounter Visit Diagnoses Not on filedocumented in this encounter Additional Health Concerns Infection Onset Date Last Indicated Resolved Time 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/16 urine, 07/10/16 rectal swab 06/21/2016 06/21/2016 documented as of this encounter Care Teams Hitch Technician Relationship Specialty Start Date End Date Rubén Boyle MD PCP - General Family Practice 03/08/16 Pamela Blanco NP [facility] [address] [place], [place] 8637[address] Referring Physician 07/13/16 Pedro Segura MD [facility] [address] [place], [place] [address]477 Nephrology 10/03/16 Freddy Craft MD [address] [place] [address]885 Assigned Gastroenterology Provider 02/08/20 Abdifatah Van MD 717 [facility] [address] [place] [address] Assigned Nephrology Provider 07/13/20 11/07/23 Nicole Carranza NP 420 [facility] [address] [place], [place] 28[address]65 Assigned Heart and Vascular Provider 01/09/22 Andressa Ruiz PA-C 420 [facility] [address] [place], [place] 88[address] Physician Ditch Worker Endocrinology, Diabetes, and Metabolism 03/01/22 Ashlyn Storm RN [facility] [address] [place], [place] [address] Registered Nurse 03/03/22 09/15/22 Rubén Gunter [facility] [address] [place], [place] 2[address]35 Assigned MTM Pharmacist 02/27/22 Andressa Ruiz PA-C 420 [facility] [address] [place], [place] 12[address]25 Assigned Endocrinology Provider 03/13/22 09/07/23 Suzan Harry MD [address] [place], [place] [address] Nephrology 06/30/23 Yasmeen Powers MD [address] [place], [place] 65[address]35 Nephrology 10/24/23 Yasmeen Powers MD [address] [place] [address] Assigned Nephrology Provider 11/08/23 documented as of this encounter
--- OUTSIDE RECORDS SUMMARY | 2023-12-15 10:08 | XMS_ITS | Encounter Summary ---
Author Organization [facility] Address [address] [place] [address] Care Team Providers Care Teaching Young Name Role Phone Rubén Boyle MD Primary Care Provider [phone] Pamela Blanco [facility] Unavailable Pedro Segura MD Unavailable Freddy Craft MD Unavailable Abdifatah Van MD Unavailable Nicole Carranza [facility]ALTHCARE Unavailable [phone] Andressa Ruiz PA-C Unavailable [phone] Ashlyn Storm RN Unavailable [phone] Rubén Gunter [facility] Unavailable Andressa Ruiz-C Unavailable Suzan Harry MD Unavailable [phone] Yasmeen Powers MD Unavailable [phone] Yasmeen Powers MD Unavailable [phone] Encounter Details Date Type Department Care Team (Late st Contact Info) Description 09/16/[address] [facility] [address] [place] [address] Calli Hall RN Social History [...] as of this encounter Care Teams Teaching Young Relationship Specialty Start Date End Date Rubén Boyle MD PCP - General Family Practice 03/08/16 Pamela Blanco [facility] HEALTHCARE [facility] [address] [place], [place] 2665[address] Referring Physician 07/13/16 Pedro Segura MD [facility] [address] [place], [place] [address] Nephrology 10/03/16 Freddy Craft MD [address] [facility] [address] [place], [place] [address] Assigned Gastroenterology Provider 02/08/20 Abdifatah Van MD [address] [facility] [address] [place], [place] [address]34 Assigned Nephrology Provider 07/13/20 11/07/23 Nicole Carranza NP 420 [facility] [address] [place], [place] [address] Assigned Heart and Vascular Provider 01/09/22 Andressa Ruiz PA-C 420 [facility] 803 [place], [place] [address] Physician Granite Countertop Installer Endocrinology, Diabetes, and Metabolism 03/01/22 Ashlyn Storm, RN [facility] 7[address] [place], [place] 28[address]94 Registered Nurse 03/03/22 09/15/22 Rubén Gunter [facility] [address] [place] [address] Assigned MTM Pharmacist 02/27/22 Andressa Ruiz PA-C 420 [facility] 803 [place], [place] [address] Assigned Endocrinology Provider 03/13/22 09/07/23 Suzan Harry MD 420 [place] [address] Nephrology 06/30/23 Yasmeen Powers MD 500 [place] [address] Nephrology 10/24/23 Yasmeen Powers MD [address] [place] [address] Assigned Nephrology Provider 11/08/23 documented as of this encounter
--- OUTSIDE RECORDS SUMMARY | 2023-12-15 10:08 | XMS_ITS | Encounter Summary ---
Author Organization [facility] Address [address] [place] [address] Care Team Providers Care Sheet Metal Journeyman Name Role Phone Rubén Boyle MD Primary Care Provider Pamela Blanco MUSIC EDUCATOR Unavailable [phone] Pedro Segura MD Unavailable [phone] Freddy Craft MD Unavailable [phone] Abdifatah Van MD Unavailable Nicole Carranza MUSIC EDUCATOR Unavailable [phone] Andressa Ruiz-C Unavailable Ashlyn Storm RN Unavailable Rubén Gunter [facility] Unavailable Andressa Ruiz-C Unavailable Suzan Harry MD Unavailable [phone] Yasmeen Powers MD Unavailable [phone] Yasmeen Powers MD Unavailable [phone] Encounter Details Date Type Department Care Team (Late st Contact Info) Description 01/28/2021 External Order Results [facility] [address] [place] [address] Outside, Provider Lipid screening; Liver replaced by [...] Comments CBC WITH PLATELETS & DIFFERENTIAL Routine 01/28/2021 8:05 AM CDT TACROLIMUS BY TANDEM MASS SPECTROMETRY Routine 01/28/2021 8:05 AM CDT Lipid screening 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) PROTEIN RANDOM URINE Routine 01/28/2021 8:05 AM CDT Lipid screening 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) MAGNESIUM Routine 01/28/2021 8:05 AM CDT Lipid screening 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) LIPID PROFILE Routine 01/28/2021 8:05 AM CDT Lipid screening 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) HEPATIC FUNCTION PANEL Routine 01/28/2021 8:05 AM CDT Lipid screening 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) BASIC METABOLIC PANEL Routine 01/28/2021 8:05 AM CDT Lipid screening 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) documented in this encounter Results * Tacrolimus level (01/28/2021 8:05 AM CDT) Tacrolimus(FK-5 06) (External) 4.3 See scan ng/mL NON-INTERFACED (ONBASE SCANS) Blood 01/28/2021 8:05 AM CDT Narrative [facility]A PFT - 02/02/2021 4:20 PM CDT Verified by Melissa Otto on 02/02/2021. Freddy Dumont MD LAB - BLOOD ORD ERABLES [facility] NON-INTERFACED (ONBASE SCANS) * Protein random urine with Creat Ratio (01/28/2021 8:05 AM CDT) Protein Random Urine (External) 9 Not provided mg/dl NON-INTERFACE D (ONBASE SCANS) Creatinine Urine mg/dL (External) 219 Not provided mg/dl NON-INTERFACE D (ONBASE SCANS) Protein Total Ur per Cr (External) 0.04 0 - 0.19 NON-INTERFACE D (ONBASE SCANS) Urine 01/28/2021 8:05 AM CDT Narrative [facility] PFT - 01/30/2021 10:33 AM CDT Verified by Melissa Otto on 01/30/2021. Freddy Dumont MD LAB - URINE ORD ERALASHAE Performing Organization Address [facility] Co de Phone Number [facility] PFT NON-INTERFACED (ONBASE SCANS) * Magnesium (01/28/2021 8:05 AM CDT) Magnesium (External) 1.8 1.5 - 2.6 MG/DL NON-INTERFACED (ONBASE SCANS) Blood 01/28/2021 8:05 AM CDT Narrative [facility] PFT - 01/30/2021 10:33 AM CDT Verified by Yamil Santo on 01/30/2021. Freddy Dumont MD LAB - BLOOD ORD ERABLES [facility] NON-INTERFACED (ONBASE SCANS) * Hepatic panel (01/28/2021 8:05 AM CDT) Protein Total (External) 6.9 6.0 - 8.3 g/dL NON-INTERFACED (ONBASE SCANS) Albumin (External) 4.2 3.3 - 5.0 g/dL NON-INTERFACED (ONBASE SCANS) Bilirubin Total (External) 0.9 0.1 - 1.5 mg/dL NON-INTERFACED (ONBASE SCANS) Bilirubin Direct (External) 0.4 0.0 - 0.5 MG/DL NON-INTERFACED (ONBASE SCANS) AST (External) 23 12 - 35 U/L NON-INTERFACED (ONBASE SCANS) ALT (External) 13 4 - 50 U/L NON- INTERFACED (ONBASE SCANS) Alk Phosphatase (External) 74 40 - 150 U/L NON-INTERFACED (ONBASE SCANS) Blood 01/28/2021 8:05 AM CDT Narrative [facility] PFT - 01/30/2021 10:33 AM CDT Verified by Yamil Santo on 01/30/2021. Freddy Dumont MD LAB - BLOOD ORD ERABLES Performing Organization Address City/[facility]/ZIP Co de Phone Number [facility] PFT NON-INTERFACED (ONBASE SCANS) * Lipid Profile (01/28/2021 8:05 AM CDT) Cholesterol (External) 129 90 - 199 MG/DL NON-INTERFACE D (ONBASE SCANS) Triglycerides (External) 122 40 - 149 MG/DL NON-INTERFACE D (ONBASE SCANS) LDL-Cholesterol (External) 61 <100 mg/dL NON-INTERFACE D (ONBASE SCANS) HDL Cholesterol (External) 44 >=40 mg/dL NON-INTERFACE D (ONBASE SCANS) Blood 01/28/2021 8:05 AM CDT Narrative [facility] PFT - 01/30/2021 10:33 AM CDT Verified by Yamil Santo on 01/30/2021. Freddy Dumont MD LAB - BLOOD ORD ERABLES [facility] PFT NON-INTERFACED (ONBASE SCANS) * (ABNORMAL) Basic metabolic panel (01/28/2021 8:05 AM CDT) Glucose (External) 125(H) 60 - 115 mg/dL NON-INTERFACE D (ONBASE SCANS) Urea Nitrogen (External) 24 7 - 30 mg/dL NON-INTERFACE D (ONBASE SCANS) Creatinine (External) 1.6(H) 0.5 - 1.5 mg/dL NON-INTERFACE D (ONBASE SCANS) Sodium (External) 138 135 - 149 mmol/L NON-INTERFACE D (ONBASE SCANS) Potassium (External) 4.5 3.6 - 5.1 mmol/L NON-INTERFACE D (ONBASE SCANS) Chloride (External) 106 96 - 114 mmol/L NON-INTERFACE D (ONBASE SCANS) CO2 (External) 25 20 - 32 mmol/L NON-INTERFACE D (ONBASE SCANS) Calcium (External) 9.2 8.4 - 10.6 mg/dL NON-INTERFACE D (ONBASE SCANS) GFR Estimated (External) Patient height/weight data not available ml/min/1. 73m2 NON-INTERFACE D (ONBASE SCANS) Blood 01/28/2021 8:05 AM CDT Narrative SAMANTHA PFT - 01/30/2021 10:33 AM CDT Verified by Yamil Santo on 01/30/2021. Freddy Dumont MD LAB - BLOOD ORD ERABLES SAM[facility]THA PFT NON-INTERFACED (ONBASE SCANS) * (ABNORMAL) CBC with Platelets & Differential (01/28/2021 8:05 AM CDT) WBC Count (External) 2.32(L) 5.00 - 10.00 K/UL NON-INTERFACE D (ONBASE SCANS) RBC Count (External) 3.78(L) 4.32 - 5.72 M/UL NON-INTERFACE D (ONBASE SCANS) Hemoglobin (External) 12.5(L) 13.5 - 17.5 GM/DL NON-INTERFACE D (ONBASE SCANS) Hematocrit (External) 36.7(L) 38.8 - 50.0 % NON-INTERFACE D (ONBASE SCANS) MCV (External) 97(H) 81 - 95 FL NON- INTERFACE D (ONBASE SCANS) MCH (External) 33 27 - 34 PG NON- INTERFACE D (ONBASE SCANS) MCHC (External) 34 32 - 36 GM/DL NON-INTERFACE D (ONBASE SCANS) Platelet Count (External) 151 150 - 450 K/UL NON-INTERFACE D (ONBASE SCANS) % Neutrophils (External) 59.5 50.0 - 70.0 % NON-INTERFACE D (ONBASE SCANS) % Lymphocytes (External) 22.4(L) 25.0 - 45.0 % NON-INTERFACE D (ONBASE SCANS) % Monocytes (External) 13.4(H) 0.00 - 11.0 % NON-INTERFACE D (ONBASE SCANS) % Eosinophils (External) 3.9 0.0 - 7.0 % NON-INTERFACE D (ONBASE SCANS) % Basophils (External) 0.4 0.0 - 3.0 % NON-INTERFACE D (ONBASE SCANS) % Immature Granulocytes (External) 0.4 % NON-INTERFACE D (ONBASE SCANS) RDW (External) 14.0 11.5 - 15.3 % NON-INTERFACE D (ONBASE SCANS) Absolute Neutrophils (External) 1.38(L) 1.70 - 7.00 K/UL NON-INTERFACE D (ONBASE SCANS) Absolute Lymphocytes (External) 0.52(L) 0.90 - 2.90 K/UL NON-INTERFACE D (ONBASE SCANS) Absolute Monocytes (External) 0.31 0.30 - 0.90 K/UL NON-INTERFACE D (ONBASE SCANS) Absolute Eosinophils (External) 0.09 0.00 - 0.50 K/UL NON-INTERFACE D (ONBASE SCANS) Absolute Basophils (External) 0.01 0.00 - 0.20 K/UL NON-INTERFACE D (ONBASE SCANS) Absolute Immature Granulocytes (External) 0.01 K/uL NON-INTERFACE D (ONBASE SCANS) Blood 01/28/2021 8:05 AM CDT Narrative SAMANTHA PFT - 01/30/2021 10:30 AM CDT Verified by Melissa Otto on 01/30/2021. Freddy Dumont MD LAB - BLOOD ORD ERABLES [facility] NON-INTERFACED (ONBASE SCANS) documented in this encounter Visit Diagnoses Diagnosis Lipid screening Screening for lipoid disorders 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) Liver replaced by transplant documented in this encounter Additional Health Concerns Infection Onset Date Last Indicated Resolved Time 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/16 urine, 07/10/16 rectal swab 06/21/2016 06/21/2016 documented as of this encounter Care Teams Sheet Metal Journeyman Relationship Specialty Start Date End Date Rubén Boyle MD PCP - General Family Practice 03/08/[address] [facility] [address] [place], [place] [address] Referring Physician 07/13/[address] [facility] [address] [place], [place] [address] Nephrology 10/03/16 Freddy Craft MD [address] [facility] [address] [place], [place] [address] Assigned Gastroenterology Provider 02/08/20 Abdifatah Van MD [address] [facility] [address] [place] [address] Assigned Nephrology Provider 07/13/20 11/07/23 Nicole Carranza NP 420 [facility] [address] [place], [place] [address] Assigned Heart and Vascular Provider 01/09/22 Andressa Ruiz PA-C 420 [facility] [address] [place], [place] [address] Physician Master Motorcycle Technician Endocrinology, Diabetes, and Metabolism 03/01/22 Ashlyn Storm, RN [facility] [address] [place] [address] Registered Nurse 03/03/22 09/15/22 Rubén Gunter [facility] 9[address] [place] [address] Assigned MTM Pharmacist 02/27/22 Andressa Ruiz PA-C 420 [facility] [address] [place], [place] [address] Assigned Endocrinology Provider 03/13/22 09/07/23 Suzan Harry MD 420 [place], [place] [address] Nephrology 06/30/23 Yasmeen Powers MD 500 [place] [address] Nephrology 10/24/23 Yasmeen Powers MD [address] [place] [address] Assigned Nephrology Provider 11/08/23 documented as of this encounter
--- OUTSIDE RECORDS SUMMARY | 2023-12-15 10:08 | XMS_ITS | Encounter Summary ---
Author Organization [facility] Address [address] [place] [address] Care Team Providers Care Marketing Segment Manager Name Role Phone Rubén Boyle MD Primary Care Provider Pamela Blanco TILE PRESSER Unavailable [phone] Pedro Segura MD Unavailable Freddy Craft MD Unavailable Abdifatah Van MD Unavailable Nicole Carranza TILE PRESSER Unavailable [phone] Andressa Ruiz-C Unavailable Ashlyn Storm RN Unavailable Rubén Gunter [facility] Unavailable Andressa Ruiz-C Unavailable Suzan Harry MD Unavailable [phone] Yasmeen Powers MD Unavailable [phone] Yasmeen Powers MD Unavailable [phone] Encounter Details Date Type Department Care Team (Latest Contact Info) Description 09/12/2019 External Order Results [facility] [address] [place] [address] Outside, Provider History of liver [...] Comments CBC WITH PLATELETS & DIFFERENTIAL Routine 09/12/2019 11:00 AM CDT TACROLIMUS BY TANDEM MASS SPECTROMETRY Routine 09/12/2019 11:00 AM CDT History of liver transplant (H) Status post kidney transplant Long-term use of immunosuppressant medication ROUTINE UA WITH MICROSCOPIC Routine 09/12/2019 11:00 AM CDT MAGNESIUM Routine 09/12/2019 11:00 AM CDT LIPID PROFILE Routine 09/12/2019 11:00 AM CDT HEPATIC FUNCTION PANEL Routine 09/12/2019 11:00 AM CDT BASIC METABOLIC PANEL Routine 09/12/2019 11:00 AM CDT documented in this encounter Results * Tacrolimus level (09/12/2019 11:00 AM CDT) Tacrolimus(FK-5 06) (External) 3.4 See scan ng/mL LABDE SCAN Blood specimen (specimen) 09/12/2019 11:00 AM CDT Subhash SINGH PFT - 09/17/2019 1:16 PM CDT Verified by Cruzito Marlow on 09/17/2019. Freddy Dumont MD LAB - BLOOD ORD ERABLES Performing Organization Address City/State/[facility] Co de Phone Number [facility] PFT LABDE SCAN * (ABNORMAL) Lipid Profile (09/12/2019 11:00 AM CDT) Cholesterol (External) 210(H) 90 - 200 MG/DL LABDE SCAN Triglycerides (External) 243(H) 40 - 197 MG/DL LABDE SCAN LDL-Cholesterol (External) 121(H) <100 MG/DL LABDE SCAN HDL Cholesterol (External) 40 >=40 mg/dL LABDE SCAN Blood specimen (specimen) 09/12/2019 11:00 AM CDT Narrative B[facility]ZE PFT - 09/13/2019 9:16 AM CDT Verified by Pedrito Stallworth on 09/13/2019. Patient Reported LAB - BLOOD ORDERABL ES Performing Organization Address [facility] de Phone Number BREEZE PFT LABDE SCAN * Hepatic panel (09/12/2019 11:00 AM CDT) Bilirubin Total (External) 1.1 0.0 - 1.5 mg/dL LABDE SCAN Bilirubin Direct (External) 0.1 0.0 - 0.5 MG/DL LABDE SCAN AST (External) 25 12 - 35 U/L LABDE SCAN ALT (External) 19 4 - 50 U/L LABDE SCAN Alk Phosphatase (External) 67 40 - 150 U/L LABDE SCAN Protein Total (External) 7.4 6.0 - 8.3 g/dL LABDE SCAN Blood specimen (specimen) 09/12/2019 11:00 AM CDT Narrative BREEZE PFT - 09/13/2019 9:16 AM CDT Verified by Pedrito Stallworth on 09/13/2019. Patient Reported LAB - BLOOD ORDERABL ES Performing Organization Address [facility] Co de Phone Number BREEZE PFT LABDE SCAN * Magnesium (09/12/2019 11:00 AM CDT) Magnesium (External) 1.6 1.5 - 2.6 MG/DL LABDE SCAN Blood specimen (specimen) 09/12/2019 11:00 AM CDT Subhash SINGH PFT - 09/13/2019 9:16 AM CDT Verified by Pedrito Stallworth on 09/13/2019. Patient Reported LAB - BLOOD ORDERABL ES Performing Organization Address [facility]/ZIP Co de Phone Number [facility] PF LABDE SCAN * (ABNORMAL) Basic metabolic panel (09/12/2019 11:00 AM CDT) Glucose (External) 164(H) 60 - 115 mg/dL LABDE SCAN Urea Nitrogen (External) 21 7 - 30 mg/dL LABDE SCAN Creatinine (External) 1.5 0.5 - 1.5 mg/dL LABDE SCAN Sodium (External) 138 135 - 149 mmol/L LABDE SCAN Potassium (External) 4.7 3.6 - 5.1 mmol/L LABDE SCAN Chloride (External) 103 96 - 114 mmol/L LABDE SCAN CO2 (External) 25 20 - 32 mmol/L LABDE SCAN Calcium (External) 9.4 8.4 - 10.6 mg/dL LABDE SCAN Blood specimen (specimen) 09/12/2019 11:00 AM CDT Subhash SINGH PFT - 09/13/2019 9:16 AM CDT Verified by Pedrito Stallworth on 09/13/2019. Patient Reported LAB - BLOOD ORDERABL ES Performing Organization Address [facility]/ZIP Co de Phone Number [facility] PF LABDE SCAN * (ABNORMAL) UA with Microscopic (09/12/2019 11:00 AM CDT) Color Urine (External) ORANGE YELLOW LABDE SCAN Appearance Urine (External) CLEAR CLEAR LABDE SCAN Glucose Urine (External) TRACE(H) NEGATIVE LABDE SCAN Bilirubin Urine (External) NEG NEGATIVE LABDE SCAN Ketones Urine (External) TRACE(H) NEGATIVE LABDE SCAN Specific [place] Urine (External) >=1.030 LABDE SCAN pH Urine (External) 6.0 LABDE SCAN Protein Albumin Ur (External) NEG NEGATIVE LABDE SCAN Urobilinogen (External) 0.2 0.2 LABDE SCAN Nitrites Urine (External) NEG NEGATIVE LABDE SCAN Blood Urine (External) NEG NEGATIVE LABDE SCAN Leukocyte Esterase Urine (External) NEG NEGATIVE LABDE SCAN WBC Urine (External) 0 LABDE SCAN RBC Urine (External) 0 LABDE SCAN Casts Urine (External) 0 LABDE SCAN Crystal Urine (External) 0 LABDE SCAN Squamous Epithelial Urine (External) 0 LABDE SCAN Bacteria Urine (External) 0 LABDE SCAN Urine specimen (specimen) 09/12/2019 11:00 AM CDT Narrative SAMANTHA PFT - 09/13/2019 9:03 AM CDT Verified by Pedrito Stallworth on 09/13/2019. Patient Reported LAB - URINE ORDERABL ES SAMANTHA PFT LABDE SCAN * (ABNORMAL) CBC with platelets differential (09/12/2019 11:00 AM CDT) WBC Count (External) 2.95(L) 5.00 - 10.00 K/UL LABDE SCAN RBC Count (External) 4.00(L) 4.32 - 5.72 M/UL LABDE SCAN Hemoglobin (External) 13.1(L) 13.5 - 17.5 GM/DL LABDE SCAN Hematocrit (External) 38.9 38.8 - 50.0 % LABDE SCAN MCV (External) 97(H) 81 - 95 FL LABDE SCAN MCH (External) 33 27 - 34 PG LABDE SCAN MCHC (External) 34 32 - 36 GM/DL LABDE SCAN Platelet Count (External) 150 150 - 450 K/UL LABDE SCAN % Neutrophils (External) 66.1 50.0 - 70.0 % LABDE SCAN % Lymphocytes (External) 20.0(L) 25.0 - 45.0 % LABDE SCAN % Monocytes (External) 9.8 0.00 - 11.0 % LABDE SCAN % Eosinophils (External) 3.1 0.0 - 7.0 % LABDE SCAN % Basophils (External) 0.3 0.0 - 3.0 % LABDE SCAN % Immature Granulocytes (External) 0.7 % LABDE SCAN RDW (External) 14.2 11.5 - 15.3 % LABDE SCAN Absolute Neutrophils (External) 1.95 1.70 - 7.00 K/UL LABDE SCAN Absolute Lymphocytes (External) 0.59(L) 0.90 - 2.90 K/UL LABDE SCAN Absolute Monocytes (External) 0.29(L) 0.30 - 0.90 K/UL LABDE SCAN Absolute Eosinophils (External) 0.09 0.00 - 0.50 K/UL LABDE SCAN Absolute Basophils (External) 0.01 0.00 - 0.20 K/UL LABDE SCAN Absolute Immature Granulocytes (External) 0.02 K/UL LABDE SCAN Blood specimen (specimen) 09/12/2019 11:00 AM CDT Narrative SAMANTHA PFT - 09/26/2019 2:32 PM CDT Verified by Pedrito Stallworth on 09/13/2019. Verified by Pedriot Stallworth on 09/13/2019. Patient Reported LAB - BLOOD ORDERABL ES SAMANTHA PFTameka LABDE SCAN documented in this encounter Visit [...] documented as of this encounter Care Teams Marketing Segment Manager Relationship Specialty Start Date End Date Rubén Boyle MD PCP - General Family Practice 03/08/16 Pamela Blanco NP [facility] [address] [place], [place] 024607 Referring Physician 07/13/16 Pedro Segura MD [facility] [address] [place], [place] 0[address]47 Nephrology 10/03/16 Freddy Craft MD 516 [facility] [address] [place], [place] 2[address] Assigned Gastroenterology Provider 02/08/20 Abdifatah Van MD 717 [facility] [address] [place], [place] 524014 Assigned Nephrology Provider 07/13/20 11/07/23 Nicole Carranza, GER[place] 420 [facility] [address] [place], [place] 790745 Assigned Heart and Vascular Provider 01/09/22 Andressa Ruiz PA-C 420 [facility] 803 [place], [place] [address]85 Physician Information Engineer Endocrinology, Diabetes, and Metabolism 03/01/22 Ashlyn Storm, RN [facility] 711 [place], [place] 509714 Registered Nurse 03/03/22 09/15/22 Rubén Gunter [facility] [address] [facility] [address] [place], [place] 529435 Assigned MTM Pharmacist 02/27/22 Andressa Ruiz PA-C 420 [facility] 803 [place], [place] 012035 Assigned Endocrinology Provider 03/13/22 09/07/23 Suzan Harry MD 420 [place], [place] 482945 Nephrology 06/30/23 Yasmeen Powers MD 500 [place] [address] Nephrology 10/24/23 Yasmeen Powers MD 500 [place] [address] Assigned Nephrology Provider 11/08/23 documented as of this encounter
--- OUTSIDE RECORDS SUMMARY | 2023-12-15 10:08 | XMS_ITS | Encounter Summary ---
Author Organization [facility] Address [address] [place] [address] Care Team Providers Care Supervisor Powder And Primer Canning Name Role Phone Rubén Boyle MD Primary Care Provider [phone] Pamela lBanco ASSISTED LIVING MANAGER Unavailable Pedro Segura MD Unavailable [phone] Freddy Craft MD Unavailable [phone] Abdifatah Van MD Unavailable Nicole Carranza ASSISTED LIVING MANAGER Unavailable [phone] Andressa Ruiz PA-C Unavailable [phone] Ashlyn Storm RN Unavailable Rubén Gunter [facility] Unavailable Andressa Ruiz-C Unavailable Suzan Harry MD Unavailable [phone] Yasmeen Powers MD Unavailable [phone] Yasmeen Powers MD Unavailable [phone] Encounter Details Date Type Department Care Team (Late st Contact Info) Description 04/29/2020 [facility] [address] [place] [address] Calli Hall RN Social History [...] documented as of this encounter Care Teams Supervisor Powder And Primer Canning Relationship Specialty Start Date End Date Rubén Boyle MD PCP - General Family Practice 03/08/16 Pamela Blanco ASSISTED LIVING MANAGER [facility] [address] [place], [place] [address] Referring Physician 07/13/16 Pedro Segura MD [facility] [address] [place], [place] 184757 Nephrology 10/03/16 Freddy Craft MD 516 [facility] [address] [place], [place] 5933[address] Assigned Gastroenterology Provider 02/08/20 Abdifatah Van MD 717 [facility] [address] [place], [place] [address]994 Assigned Nephrology Provider 07/13/20 11/07/23 Nicole Carranza NP 420 [facility] [address] [place], [place] 9[address]455 Assigned Heart and Vascular Provider 01/09/22 Andressa Ruiz PA-C 420 [facility] 803 [place], [place] 5[address] Physician Senior Technical Analyst Endocrinology, Diabetes, and Metabolism 03/01/22 Ashlyn Storm, RN [facility] 711 [place], [place] 818034 Registered Nurse 03/03/22 09/15/22 Rubén Gunter [facility] [address] [place] [address] Assigned MTM Pharmacist 02/27/22 Andressa Ruiz PA-C 420 [facility] 803 [place], [place] 4[address]45 Assigned Endocrinology Provider 03/13/22 09/07/23 Suzan Harry MD 420 [place] [address] Nephrology 06/30/23 Yasmeen Powers MD 500 [place] [address] Nephrology 10/24/23 Yasmeen Powers MD [address] [place] [address] Assigned Nephrology Provider 11/08/23 documented as of this encounter
--- OUTSIDE RECORDS SUMMARY | 2023-12-15 10:08 | XMS_ITS | Encounter Summary ---
Author Organization [facility] Address [address] [place] [address] Care Team Providers Care Chocolate Finisher Name Role Phone Rubén Boyle MD Primary Care Provider Pamela Blanco PROFESSOR OF ENGINEERING Unavailable Pedro Segura MD Unavailable [phone] Freddy Craft MD Unavailable [phone] Abdifatah Van MD Unavailable Nicole Carranza PROFESSOR OF ENGINEERING Unavailable [phone] Andressa Ruiz-C Unavailable Ashlyn Storm RN Unavailable [phone] Rubén Gunter [facility] Unavailable Andressa Ruiz-C Unavailable Suzan Harry MD Unavailable [phone] Yasmeen Powers MD Unavailable [phone] Yasmeen Powers MD Unavailable [phone] Encounter Details Date Type Department Care Team (Late st Contact Info) Description 06/26/2020 [facility] Trans[facility] [address] [place] [address] Laurie Carmen LPN Social History [...] as of this encounter Care Teams Chocolate Finisher Relationship Specialty Start Date End Date Rubén Boyle MD PCP - General Family Practice 03/08/16 Pamela Blanco PROFESSOR OF ENGINEERING [facility] [address] [place], [place] [address] Referring Physician 07/13/16 Pedro Segura MD [facility] [address] [place], [place] 205207 Nephrology 10/03/16 Freddy Craft MD 516 [facility] [address] [place], [place] [address] Assigned Gastroenterology Provider 02/08/20 Abdifatah Van MD 717 [facility] [address] [place], [place] [address] Assigned Nephrology Provider 07/13/20 11/07/23 Nicole Carranza NP 420 [facility] [address] [place], [place] 9[address] Assigned Heart and Vascular Provider 01/09/22 Andressa Ruiz PA-C 420 [facility] 803 [place], [place] [address] Physician Steam Shovel Operator Endocrinology, Diabetes, and Metabolism 03/01/22 Ashlyn Storm, RN [facility] 711 [place], [place] 508274 Registered Nurse 03/03/22 09/15/22 Rubén Gunter [facility] [address] [place] [address] Assigned MTM Pharmacist 02/27/22 Andressa Ruiz PA-C 420 [facility] 803 [place], [place] [address]225 Assigned Endocrinology Provider 03/13/22 09/07/23 Suzan Harry MD 420 [place] [address] Nephrology 06/30/23 Yasmeen Powers MD 500 [place] [address] Nephrology 10/24/23 Yasmeen Powers MD 500 [place] [address] Assigned Nephrology Provider 11/08/23 documented as of this encounter
--- OUTSIDE RECORDS SUMMARY | 2023-12-15 10:08 | XMS_ITS | Encounter Summary ---
Author Organization [facility] Address [address] [place] [address] Care Team Providers Care Media Traffic Manager Name Role Phone Rubén Boyle MD Primary Care Provider Pamela Blanco TRANSMISSION TECHNICIAN Unavailable Pedro Segura MD Unavailable Freddy Craft MD Unavailable Abdifatah Van MD Unavailable Nicole Carranza TRANSMISSION TECHNICIAN Unavailable [phone] Andressa Ruiz PA-C Unavailable [phone] Ashlyn Storm RN Unavailable Rubén Gunter [facility] Unavailable Andressa Ruiz-C Unavailable Suzan Harry MD Unavailable [phone] Yasmeen Powers MD Unavailable Yasmeen Powers MD Unavailable [phone] Encounter Details Date Type Department Care Team (Late st Contact Info) Description 03/07/2020 [facility] [address] [place] [address] Calli Hall RN Social History [...] documented as of this encounter Care Teams Media Traffic Manager Relationship Specialty Start Date End Date Rubén Boyle MD PCP - General Family Practice 03/08/16 Pamela Blanco TRANSMISSION TECHNICIAN [facility] [address] [place], [place] 0[address]17 Referring Physician 07/13/16 Pedro Segura MD [facility] [address] [place], [place] 7[address] Nephrology 10/03/16 Freddy Craft MD 516 [facility] [address] [place], [place] [address] Assigned Gastroenterology Provider 02/08/20 Abdifatah Van MD 717 [facility] [address] [place], [place] [address]454 Assigned Nephrology Provider 07/13/20 11/07/23 Nicole Carranza NP 420 [facility] [address] [place], [place] [address]705 Assigned Heart and Vascular Provider 01/09/22 Andressa Ruiz PA-C 420 [facility] 803 [place], [place] [address] Physician Life Skills Consultant Endocrinology, Diabetes, and Metabolism 03/01/22 Ashlyn Storm, RN [facility] 711 [place], [place] 898554 Registered Nurse 03/03/22 09/15/22 Rubén Gunter [facility] [address] [place] [address] Assigned MTM Pharmacist 02/27/22 Andressa Ruiz PA-C 420 [facility] 803 [place], [place] [address]305 Assigned Endocrinology Provider 03/13/22 09/07/23 Suzan Harry MD 420 [place] [address] Nephrology 06/30/23 Yasmeen Powers MD 500 [place] [address] Nephrology 10/24/23 Yasmeen Powers MD 500 [place] [address] Assigned Nephrology Provider 11/08/23 documented as of this encounter
--- OUTSIDE RECORDS SUMMARY | 2023-12-15 10:08 | XMS_ITS | Encounter Summary ---
Author Organization [facility] Address [address] [place] [address] Care Team Providers Care Supervisor Powder And Primer Canning Name Role Phone Rubén Boyle MD Primary Care Provider Pamela Blanco PHONE ENGINEER Unavailable Pedro Segura MD Unavailable Freddy Craft MD Unavailable Abdifatah Van MD Unavailable Nicole Carranza PHONE ENGINEER Unavailable Andressa Ruiz-C Unavailable Ashlyn Storm RN Unavailable [phone] Rubén Gunter [facility] Unavailable Andressa Ruiz-C Unavailable Suzan Harry MD Unavailable [phone] Yasmeen Powers MD Unavailable Yasmeen Powers MD Unavailable [phone] Encounter Details Date Type Department Care Team (Late st Contact Info) Description 05/28/2019 External Order Results [facility] Trans[facility] [address] [place] [address] Social History Tobacco Use Types Packs/Day Years [...] Comments TACROLIMUS BY TANDEM MASS SPECTROMETRY Routine 05/28/2019 10:10 AM FIELD CROP II FARMWORKER MAGNESIUM Routine 05/28/2019 10:10 AM FIELD CROP II FARMWORKER HEPATIC FUNCTION PANEL Routine 05/28/2019 10:10 AM FIELD CROP II FARMWORKER BASIC METABOLIC PANEL Routine 05/28/2019 10:10 AM FIELD CROP II FARMWORKER CBC WITH PLATELETS Routine 05/28/2019 10 :10 AM FIELD CROP II FARMWORKER documented in this encounter Results * Tacrolimus level (05/28/2019 10:10 AM FIELD CROP II FARMWORKER) Tacrolimus(FK-5 06) (External) 5.4 See scan ng/mL LABDE SCAN Tacrolimus Last Dose (External) Not given LABDE SCAN Blood specimen (specimen) 05/28/2019 10:10 AM FIELD CROP II FARMWORKER Narrative SAMANTHA PFT - 05/30/2019 8:40 AM FIELD CROP II FARMWORKER Verified by Cruzito Marlow on 05/30/2019. Patient Reported LAB - BLOOD ORDERABL ES SAMANTHA PFT LABDE SCAN * (ABNORMAL) CBC with platelets (05/28/2019 10:10 AM FIELD CROP II FARMWORKER) WBC Count (External) 2.7(L) 4.5 - 11.0 thou/cu mm LABDE SCAN RBC Count (External) 3.88(L) 4.30 - 5.90 mil/cu mm LABDE SCAN Hemoglobin (External) 12.8(L) 13.5 - 17.5 g/dL LABDE SCAN Hematocrit (External) 37.0 37.0 - 53.0 % LABDE SCAN MCV (External) 95 80 - 100 fL LABDE SCAN MCH (External) 33.0 26.0 - 34.0 pg LABDE SCAN MCHC (External) 34.6 32.0 - 36.0 g/dL LABDE SCAN RDW (External) 14.4 11.5 - 15.5 % LABDE SCAN Platelet Count (External) 134(L) 140 - 440 thou/cu mm LABDE SCAN Blood specimen (specimen) 05/28/2019 10:10 AM FIELD CROP II FARMWORKER Narrative BREEZE PFT - 05/29/2019 8:37 AM FIELD CROP II FARMWORKER Verified by Pedrito Stallworth on 05/29/2019. Patient Reported LAB - BLOOD ORDERABL ES [facility] PFT LABDE SCAN * Magnesium (05/28/2019 10:10 AM FIELD CROP II FARMWORKER) Magnesium (External) 1.6 1.6 - 2.6 mg/dL LABDE SCAN Blood specimen (specimen) 05/28/2019 10:10 AM FIELD CROP II FARMWORKER Narrative ERICKEZE PFT - 05/29/2019 8:37 AM FIELD CROP II FARMWORKER Verified by Pedrito Stallworth on 05/29/2019. Patient Reported LAB - BLOOD ORDERABL ES [facility] PFT LABDE SCAN * Hepatic panel (05/28/2019 10:10 AM FIELD CROP II FARMWORKER) Albumin (External) 4.2 3.2 - 4.6 g/dL LABDE SCAN Protein Total (External) 6.8 6.0 - 8.0 g/dL LABDE SCAN Bilirubin Total (External) 1.2 0.2 - 1.2 mg/dL LABDE SCAN Bilirubin Direct (External) 0.4 0.1 - 0.5 mg/dL LABDE SCAN Alk Phosphatase (External) 72 50 - 136 IU/L LABDE SCAN ALT (External) 11 8 - 45 IU/L LABDE SCAN AST (External) 18 2 - 40 Viktoria/L LABDE SCAN Blood specimen (specimen) 05/28/2019 10:10 AM FIELD CROP II FARMWORKER Narrative BREEZE PFT - 05/29/2019 8:37 AM FIELD CROP II FARMWORKER Verified by Pedrito Stallworth on 05/29/2019. Patient Reported LAB - BLOOD ORDERABL ES [facility] PFT LABDE SCAN * (ABNORMAL) Basic metabolic panel (05/28/2019 10:10 AM FIELD CROP II FARMWORKER) Sodium (External) 139 135 - 145 mmol/L LABDE SCAN Potassium (External) 4.6 3.5 - 5.0 mmol/L LABDE SCAN Chloride (External) 106 98 - 110 mmol/L LABDE SCAN CO2 (External) 24 21 - 31 mmol/L LABDE SCAN Anion Gap (External) 9 5 - 18 LABDE SCAN Glucose (External) 234(H) 65 - 100 mg/dL LABDE SCAN Calcium (External) 9.3 8.5 - 10.5 mg/dL LABDE SCAN Urea Nitrogen (External) 23 8 - 25 mg/dL LABDE SCAN Creatinine (External) 1.67(H) 0.72 - 1.25 mg/dL LABDE SCAN BUN/Creatinine Ratio (External) 14 10 - 20 LABDE SCAN GFR Estimated (if ) (External) 50(L) >60 mL/min/1.7 3m2 LABDE SCAN GFR Estimated (External) 41(L) >60 mL/min/1.7 3m2 LABDE SCAN Blood specimen (specimen) 05/28/2019 10:10 AM FIELD CROP II FARMWORKER Narrative BREEZE PFT - 05/29/2019 8:37 AM FIELD CROP II FARMWORKER Verified by Pedrito Stallworth on 05/29/2019. 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 06/21/2016 06/21/2016 documented as of this encounter Care Teams Supervisor Powder And Primer Canning Relationship Specialty Start Date End Date Rubén Boyle MD PCP - General Family Practice 03/08/16 Pamela Blanco PHONE ENGINEER [facility] [address] [place] [address] Referring Physician 07/13/16 Pedro Segura MD [facility] [address] [place], [place] [address] Nephrology 10/03/16 Freddy Craft MD 516 [facility] [address] [place], [place] [address] Assigned Gastroenterology Provider 02/08/20 Abdifatah Van MD 717 [facility] [address] [place] [address] Assigned Nephrology Provider 07/13/20 11/07/23 Nicole Carranza NP 420 [facility] 508 [place], [place] [address] Assigned Heart and Vascular Provider 01/09/22 Andressa Ruiz PA-C 420 [facility] 803 [place] [address] Physician Ornament Maker Hand Endocrinology, Diabetes, and Metabolism 03/01/22 Ashlyn Storm RN [facility] 711 [place], [place] [address] Registered Nurse 03/03/22 09/15/22 Rubén Gunter [facility] 909 [place] [address] Assigned MTM Pharmacist 02/27/22 Andressa Ruiz PA-C 420 [facility] 803 [place], [place] [address]505 Assigned Endocrinology Provider 03/13/22 09/07/23 Suzan Harry MD 420 [place], [place] [address]45 Nephrology 06/30/23 Yasmeen Powers MD 500 [place] [address] Nephrology 10/24/23 Yasmeen Powers MD 500 [place] [address] Assigned Nephrology Provider 11/08/23 documented as of this encounter
--- OUTSIDE RECORDS SUMMARY | 2023-12-15 10:08 | XMS_ITS | Encounter Summary ---
Author Organization [facility] Address [address] [place] [address]. [place] [address] Care Team Providers Care Director Community Organization Name Role Phone Rubén Boyle MD Primary Care Provider Pamela Blanco ALUMNI RELATIONS OFFICER Unavailable Pedro Segura MD Unavailable Freddy Craft MD Unavailable [phone] Abdifatah Van MD Unavailable Nicole Carranza ALUMNI RELATIONS OFFICER Unavailable Andressa Ruiz-C Unavailable Ashlyn Storm RN Unavailable Rubén Gunter [facility] Unavailable Andressa Ruiz-C Unavailable [phone] Suzan Harry MD Unavailable [phone] Yasmeen Powers MD Unavailable Yasmeen Powers MD Unavailable [phone] Encounter Details Date Type Department Care Team (Late st Contact Info) Description 10/02/2020 [facility] [address] [place] [address] Lilliam Collier Social History Tobacco Use Types Packs/Day Years [...] documented as of this encounter Care Teams Director Community Organization Relationship Specialty Start Date End Date Rubén Boyle MD PCP - General Family Practice 03/08/[address] [facility] [address] [place], [place] 66[address] Referring Physician 07/13/[address] [facility] [address] [place], [place] [address]897 Nephrology 10/03/16 Freddy Craft MD 516 [facility] 2[facility] [place], [place] [address] Assigned Gastroenterology Provider 02/08/20 Abdifatah Van MD 717 [facility] [address] [place] [address] Assigned Nephrology Provider 07/13/20 11/07/23 Nicole Carranza NP 420 [facility] 508 [place] [address] Assigned Heart and Vascular Provider 01/09/22 Andressa Ruiz PA-C 420 [facility] 803 [place] [address] Physician Carpet Tile Layer Endocrinology, Diabetes, and Metabolism 03/01/22 Ashlyn Storm, RN [facility] 711 [place] [address] Registered Nurse 03/03/22 09/15/22 Rubén Gunter [facility] [address] [place] [address] Assigned MTM Pharmacist 02/27/22 Andressa Ruiz PA-C 420 [facility] 803 [place] [address] Assigned Endocrinology Provider 03/13/22 09/07/23 Suzan Harry MD 420 [place] [address] Nephrology 06/30/23 Yasmeen Powers MD 500 [place] [address] Nephrology 10/24/23 Yasmeen Powers MD 500 [place] [address] Assigned Nephrology Provider 11/08/23 documented as of this encounter
--- OUTSIDE RECORDS SUMMARY | 2023-12-15 10:08 | XMS_ITS | Encounter Summary ---
Author Organization [facility] Address [address] [place] [address] Care Team Providers Care Microeconomics Professor Name Role Phone Rubén Boyle MD Primary Care Provider [phone] Pamela Blanco ENVIRONMENTAL SOLUTIONS ENGINEER Unavailable Pedro Segura MD Unavailable Freddy Craft MD Unavailable [phone] Abdifatah Van MD Unavailable Nicole Carranza ENVIRONMENTAL SOLUTIONS ENGINEER Unavailable [phone] Andressa Ruiz-C Unavailable Ashlyn Storm RN Unavailable [phone] Rubén Gunter [facility] Unavailable Andressa Ruiz-C Unavailable Suzan Harry MD Unavailable [phone] Yasmeen Powers MD Unavailable [phone] Yasmeen Powers MD Unavailable [phone] Encounter Details Date Type Department Care Team (Latest Contact Info) Description 05/13/2020 External Order Results [facility] 9[address] [place] [address] Outside, Provider History of liver transplant (H); Status post kidney transplant; Long-term use of immunosuppressant medication; Lipid screening; 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) [...] Procedure Name Priority Date/Time Associated Diagnosis Comments EXTERNAL LAB RESULTS Routine 05/13/2020 8:50 AM CRISIS THERAPIST TACROLIMUS BY TANDEM MASS SPECTROMETRY Routine 05/13/2020 8:50 AM CRISIS THERAPIST History of liver transplant (H) Status post kidney transplant Long-term use of immunosuppressant medication MAGNESIUM Routine 05/13/2020 8:50 AM CRISIS THERAPIST History of liver transplant (H) Status post kidney transplant Long-term use of immunosuppressant medication LIPID PROFILE Routine 05/13/2020 8:50 AM CRISIS THERAPIST Lipid screening 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) HEPATITIS C ANTIBODY Routine 05/13/2020 8:50 AM CRISIS THERAPIST HEPATITIS B SURFACE ANTIGEN Routine 05/13/2020 8:50 AM CRISIS THERAPIST HEPATITIS B CORE ANTIBODY Routine 05/13/2020 8:50 AM CRISIS THERAPIST DIFFERENTIAL Routine 05/13/2020 8:50 AM CRISIS THERAPIST BASIC METABOLIC PANEL Routine 05/13/2020 8:50 AM CRISIS THERAPIST History of liver transplant (H) Status post kidney transplant Long-term use of immunosuppressant medication CBC WITH PLATELETS Routine 05/13/2020 8: 50 AM CRISIS THERAPIST History of liver transplant (H) Status post kidney transplant Long-term use of immunosuppressant medication documented in this encounter Results * Tacrolimus level (05/13/2020 8:50 AM CRISIS THERAPIST) Tacrolimus(FK-5 06) (External) 4.6 See scan ng/mL LABDE SCAN Blood specimen (specimen) 05/13/2020 8:50 AM CRISIS THERAPIST Narrative BREEZE PFT - 05/18/2020 10:10 AM CRISIS THERAPIST Verified by Cruzito Marlow on 05/18/2020. Freddy Dumont MD LAB - BLOOD ORD ERABLES BREEZE PFT LABDE SCAN * (ABNORMAL) Lipid Profile (05/13/2020 8:50 AM CRISIS THERAPIST) Cholesterol (External) 220(H) 90 - 200 MG/DL LABDE SCAN Triglycerides (External) 386(H) 40 - 197 MG/DL LABDE SCAN LDL-Cholesterol (External) 104(H) <100 mg/dl LABDE SCAN HDL Cholesterol (External) 39(L) >=40 mg/dL LABDE SCAN Blood specimen (specimen) 05/13/2020 8:50 AM CRISIS THERAPIST Narrative BREEZE PFT - 05/18/2020 10:10 AM CRISIS THERAPIST Verified by Cruzito Marlow on 05/18/2020. Freddy Dumont MD LAB - BLOOD ORD ERABLES BREEZE PFT LABDE SCAN * Magnesium (05/13/2020 8:50 AM CRISIS THERAPIST) Magnesium (External) 1.9 1.5 - 2.6 MG/DL LABDE SCAN Blood specimen (specimen) 05/13/2020 8:50 AM CRISIS THERAPIST Narrative BREEZE PFT - 05/18/2020 10:10 AM CRISIS THERAPIST Verified by Cruzito Marlow on 05/18/2020. Freddy Dumont MD LAB - BLOOD ORD ERABLES BRETABITHAE PFT LABDE SCAN * (ABNORMAL) Basic metabolic panel (05/13/2020 8:50 AM CRISIS THERAPIST) Glucose (External) 316(H) 60 - 115 mg/dL LABDE SCAN Urea Nitrogen (External) 25 7 - 30 mg/dL LABDE SCAN Creatinine (External) 1.6(H) 0.5 - 1.5 mg/dl LABDE SCAN Sodium (External) 138 135 - 149 mmol/L LABDE SCAN Potassium (External) 4.6 3.6 - 5.1 mmol/L LABDE SCAN Chloride (External) 103 96 - 114 mmol/L LABDE SCAN CO2 (External) 25 20 - 32 mmol/L LABDE SCAN Calcium (External) 9.3 8.4 - 10.6 mg/dL LABDE SCAN Blood specimen (specimen) 05/13/2020 8:50 AM CRISIS THERAPIST Narrative AMNAE PFT - 05/18/2020 10:10 AM CRISIS THERAPIST Verified by Cruzito Marlow on 05/18/2020. Freddy Dumont MD LAB - BLOOD ORD ERABLES Performing Organization Address [facility] Co de Phone Number SAMANTHA PFT LABDE SCAN * (ABNORMAL) WBC Differential (05/13/2020 8:50 AM CRISIS THERAPIST) % Neutrophils (External) 68.6 50.0 - 70.0 % LABDE SCAN % Lymphocytes (External) 19.3(L) 25.0 - 45.0 % LABDE SCAN % Monocytes (External) 9.3 0.00 - 11.0 % LABDE SCAN % Eosinophils (External) 2.1 0.0 - 7.0 % LABDE SCAN % Basophils (External) 0.2 0.0 - 3.0 % LABDE SCAN % Immature Granulocytes (External) 0.5 % LABDE SCAN Absolute Neutrophils (External) 2.95 1.70 - 7.00 K/UL LABDE SCAN Absolute Lymphocytes (External) 0.83(L) 0.90 - 2.90 K/UL LABDE SCAN Absolute Monocytes (External) 0.40 0.30 - 0.90 K/UL LABDE SCAN Absolute Eosinophils (External) 0.09 0.00 - 0.50 K/UL LABDE SCAN Absolute Basophils (External) 0.01 0.00 - 0.20 K/UL LABDE SCAN Absolute Immature Granulocytes (External) 0.02 K/uL LABDE SCAN Blood specimen (specimen) 05/13/2020 8:50 AM CRISIS THERAPIST Narrative BREEZE PFT - 05/18/2020 10:10 AM CRISIS THERAPIST Verified by Cruzito Marlow on 05/18/2020. Patient Reported LAB - BLOOD ORDERABL ES [facility] LAB[facility] * (ABNORMAL) CBC with platelets (05/13/2020 8:50 AM CRISIS THERAPIST) WBC Count (External) 4.30(L) 5.00 - 10.00 K/UL LABDE SCAN RBC Count (External) 4.36 4.32 - 5.72 M/UL LABDE SCAN Hemoglobin (External) 13.8 13.5 - 17.5 GM/DL LABDE SCAN Hematocrit (External) 41.3 38.8 - 50 % LABDE SCAN MCV (External) 95 81 - 95 FL LABDE SCAN MCH (External) 32 27 - 34 PG LABDE SCAN MCHC (External) 33 32 - 36 GM/DL LABDE SCAN Platelet Count (External) 161 150 - 450 K/UL LABDE SCAN RDW (External) 14.8 11.5 - 15.3 % LABDE SCAN Blood specimen (specimen) 05/13/2020 8:50 AM CRISIS THERAPIST Narrative ERICKEZE PFT - 05/18/2020 10:10 AM CRISIS THERAPIST Verified by Cruzito Marlow on 05/18/2020. Freddy Dumont MD LAB - BLOOD ORD ERABLES BRETABITHAE PFT LABDE SCAN * Hepatitis C antibody (05/13/2020 8:50 AM CRISIS THERAPIST) Hepatitis C Antibody (External) Negative Negative LABDE SCAN Blood specimen (specimen) 05/13/2020 8:50 AM CRISIS THERAPIST Narrative BREEZE PFT - 05/15/2020 7:27 AM CRISIS THERAPIST Verified by Cruzito Marlow on 05/15/2020. Patient Reported LAB - BLOOD ORDERABL ES Performing Organization Address City/[facility]/ZIP Co de Phone Number BREEZE PFT LABDE SCAN * Hepatitis B core antibody (05/13/2020 8:50 AM CRISIS THERAPIST) Hepatitis B Core Anette (External) Negative Negative LABDE SCAN Blood specimen (specimen) 05/13/2020 8:50 AM CRISIS THERAPIST Narrative BREEZE PFT - 05/15/2020 7:27 AM CRISIS THERAPIST Verified by Cruzito Marlow on 05/15/2020. Patient Reported LAB - BLOOD ORDERABL ES Performing Organization Address [facility] Co de Phone Number BREEZE PFT LABDE SCAN * External Lab Results (05/13/2020 8:50 AM CRISIS THERAPIST) Scan Lab Results (External) Negative Negative LABDE SCAN Comment:HEP A AB IGM. 05/13/2020 8:50 AM CRISIS THERAPIST Narrative BREEZE PFT - 05/15/2020 7:27 AM CRISIS THERAPIST Verified by Cruzito Marlow on 05/15/2020. Patient Reported LABORATORY Performing Organization Address City/[facility] Co de Phone Number BREEZE PFT LABDE SCAN * Hepatitis B surface antigen (05/13/2020 8:50 AM CRISIS THERAPIST) Hep B Surface Agn (External) Negative Negative LABDE SCAN Blood specimen (specimen) 05/13/2020 8:50 AM CRISIS THERAPIST Narrative BREEZE PFT - 05/15/2020 7:27 AM CRISIS THERAPIST Verified by Cruzito Marlow on 05/15/2020. Patient Reported LAB - BLOOD ORDERABL ES BREEZE PFT LABDE SCAN documented in this encounter Visit Diagnoses Diagnosis History of liver transplant (H) Liver replaced by transplant Status post kidney transplant Long-term use of immunosuppressant medication Encounter for long-term (current) use of other medications Lipid screening Screening for lipoid disorders 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) Liver replaced by transplant documented in this encounter Additional Health Concerns Infection Onset Date Last Indicated Resolved Time 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/16 urine, 07/10/16 rectal swab 06/21/2016 06/21/2016 documented as of this encounter Care Teams Microeconomics Professor Relationship Specialty Start Date End Date Rubén Boyle MD PCP - General Family Practice 03/08/16 Pamela Blanco NP [facility] [address] [place], [place] [id number] Referring Physician 07/13/16 Pedro Segura MD [facility] [address] [place] [address] Nephrology 10/03/16 Freddy Craft MD 516 [facility] [address] [place] [address] Assigned Gastroenterology Provider 02/08/20 Abdifatah Van MD [address] [facility] [address] [place] [address] Assigned Nephrology Provider 07/13/20 11/07/23 Nicole Carranza NP 420 [facility] [address] [place] [address] Assigned Heart and Vascular Provider 01/09/22 Andressa Ruiz PA-C 420 [facility] 803 [place], [place] [address] Physician Railroad Track Repair Supervisor Endocrinology, Diabetes, and Metabolism 03/01/22 Ashlyn Storm RN [facility] 711 [place] [address] Registered Nurse 03/03/22 09/15/22 Rubén Gunter [facility] [address] [place] [address] Assigned MTM Pharmacist 02/27/22 Andressa Ruiz PA-C [address] [address] Assigned Endocrinology Provider 03/13/22 09/07/23 Suzan Harry MD 420 [place], [place] 68[address] Nephrology 06/30/23 Yasmeen Powers MD 500 [place] [address] Nephrology 10/24/23 Yasmeen Powers MD 500 [place] [address] Assigned Nephrology Provider 11/08/23 documented as of this encounter
--- OUTSIDE RECORDS SUMMARY | 2023-12-15 10:08 | XMS_ITS | Encounter Summary ---
Author Organization [facility] Address [address] [place] [address] Care Team Providers Care Hoop Bending Machine Operator Name Role Phone Rubén Boyle MD Primary Care Provider Pamela Blanco JAVA WEB ENGINEER Unavailable Pedro Segura MD Unavailable [phone] Freddy Craft MD Unavailable [phone] Abdifatah Van MD Unavailable Nicole Carranza JAVA WEB ENGINEER Unavailable [phone] Andressa Ruiz PA-C Unavailable Ashlyn Storm RN Unavailable Rubén Gunter [facility] Unavailable Andressa Ruiz-C Unavailable Suzan Harry MD Unavailable [phone] Yasmeen Powers MD Unavailable [phone] Yasmeen Powers MD Unavailable [phone] Encounter Details Date Type Department Care Team (Late st Contact Info) Description 12/04/2020 [facility] 909 [place] [address] Calli Hall RN Social History [...] documented as of this encounter Care Teams Hoop Bending Machine Operator Relationship Specialty Start Date End Date Rubén Boyle MD PCP - General Family Practice 03/08/16 Pamela Blanco JAVA WEB ENGINEER [facility] [address] [place], [place] [address] Referring Physician 07/13/[address] [facility] [address] [place], [place] [address] Nephrology 10/03/16 Freddy Craft MD 516 [facility] [address] [place], [place] [address] Assigned Gastroenterology Provider 02/08/20 Abdifatah Van MD 717 [facility] [address] [place], [place] [address] Assigned Nephrology Provider 07/13/20 11/07/23 Nicole Carranza NP 420 [facility] 508 [place], [place] [address] Assigned Heart and Vascular Provider 01/09/22 Andressa Ruiz PA-C 420 [facility] 803 [place], [place] [address] Physician Medical Records Specialist Endocrinology, Diabetes, and Metabolism 03/01/22 Ashlyn Storm, RN [facility] 711 [place], [place] 38[address] Registered Nurse 03/03/22 09/15/22 Rubén Gunter [facility] [address] [place] [address] Assigned MTM Pharmacist 02/27/22 Andressa Ruiz PA-C 420 [facility] 803 [place], [place] 3539[address] Assigned Endocrinology Provider 03/13/22 09/07/23 Suzan Harry MD 420 [place] [address] Nephrology 06/30/23 Yasmeen Powers MD 500 [place] [address] Nephrology 10/24/23 Yasmeen Powers MD 500 [place] [address] Assigned Nephrology Provider 11/08/23 documented as of this encounter
--- OUTSIDE RECORDS SUMMARY | 2023-12-15 10:08 | XMS_ITS | Encounter Summary ---
Author Organization [facility] Address [address] [place] [address] Care Team Providers Care Icing Coater Name Role Phone Rubén Boyle MD Primary Care Provider Pamela Blanco INSURANCE COUNSEL Unavailable Pedro Segura MD Unavailable Freddy Craft MD Unavailable [phone] Abdifatah Van MD Unavailable Nicole Carranza INSURANCE COUNSEL Unavailable [phone] Andressa Ruiz-C Unavailable Ashlyn Storm RN Unavailable Rubén Gunter [facility] Unavailable Andressa Ruiz-C Unavailable Suzan Harry MD Unavailable [phone] Yasmeen Powers MD Unavailable [phone] Yasmeen Powers MD Unavailable [phone] Encounter Details Date Type Department Care Team (Late st Contact Info) Description 02/11/2020 [facility] [address] [place] [address] Susan Trujillo RN Social History Tobacco Use Types Packs/Day [...] documented as of this encounter Care Teams Icing Coater Relationship Specialty Start Date End Date Rubén Boyle MD PCP - General Family Practice 03/08/16 Pamela Blanco INSURANCE COUNSEL [facility] [address] [place], [place] [address]317 Referring Physician 07/13/16 Pedro Segura MD [facility] [address] [place], [place] [address] Nephrology 10/03/16 Freddy Craft MD 516 [facility] [address] [place], [place] [address] Assigned Gastroenterology Provider 02/08/20 Abdifatah Van MD 717 [facility] [address] [place], [place] [address] Assigned Nephrology Provider 07/13/20 11/07/23 Nicole Carranza NP 420 [facility] 508 [place], [place] [address] Assigned Heart and Vascular Provider 01/09/22 Andressa Ruiz PA-C 420 [facility] 803 [place], [place] [address] Physician Site Operations Manager Endocrinology, Diabetes, and Metabolism 03/01/22 Ashlyn Storm, RN [facility] 711 [place], [place] 60[address] Registered Nurse 03/03/22 09/15/22 Rubén Gunter [facility] [address] [place] [address] Assigned MTM Pharmacist 02/27/22 Andressa Ruiz PA-C 420 [facility] 803 [place], [place] [address] Assigned Endocrinology Provider 03/13/22 09/07/23 Suzan Harry MD 420 [place] [address] Nephrology 06/30/23 Yasmeen Powers MD 500 [place] [address] Nephrology 10/24/23 Yasmeen Powers MD 500 [place] [address] Assigned Nephrology Provider 11/08/23 documented as of this encounter
--- OUTSIDE RECORDS SUMMARY | 2023-12-15 10:08 | XMS_ITS | Encounter Summary ---
Author Organization [facility] Address [address] [place] [address] Care Team Providers Care Plc Engineer Name Role Phone Rubén Boyle MD Primary Care Provider Pamela Blanco GEOSCIENCE LABORATORY TECHNICIAN Unavailable Pedro Segura MD Unavailable Freddy Craft MD Unavailable [phone] Abdifatah Van MD Unavailable Nicole Carranza GEOSCIENCE LABORATORY TECHNICIAN Unavailable [phone] Andressa Ruiz-C Unavailable [phone] Ashlyn Storm RN Unavailable [phone] Rubén Gunter [facility] Unavailable Andressa Ruiz-C Unavailable Suzan Harry MD Unavailable [phone] Yasmeen Powers MD Unavailable [phone] Yasmeen Powers MD Unavailable [phone] Encounter Details Date Type Department Care Team (Late st Contact Info) Description 09/24/2020 External Order Results [facility] 909 [place] [address] Outside, Provider Alcohol abuse, in remission ; Lipid screening; 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); Alcoholic cirrhosis (H) Social History Tobacco Use Types Packs/Day [...] Procedure Name Priority Date/Time Associated Diagnosis Comments PHOSPHATIDYLETHANOL (PETH) Routine 09/24 9:46 AM CDT Alcohol abuse, in remission Lipid screening 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) Alcoholic cirrhosis (H) documented in this encounter Results * Phosphatidylethanol (PEth) (09/24/2020 9:46 AM CDT) Phosphatidylethanol (External) <10 Not well establish ed. ng/mL LABDE SCAN Blood 09/24/2020 9:46 AM CDT Narrative SAMANTHA PFT - 09/30/2020 12:12 PM CDT Verified by Cruzito Marlow on 09/30/2020. Freddy Dumont MD LAB - BLOOD ORD ERABLES SAMANTHA PFT LABDE SCAN documented in this encounter Visit Diagnoses Diagnosis Alcohol abuse, in remission Nondependent alcohol abuse, in remission Lipid screening Screening for lipoid disorders 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) Liver replaced by transplant Alcoholic cirrhosis (H) Alcoholic cirrhosis of liver documented in this encounter Additional Health Concerns Infection Onset Date Last Indicated Resolved Time 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/16 urine, 07/10/16 rectal swab 06/21/2016 06/21/2016 documented as of this encounter Care Teams Plc Engineer Relationship Specialty Start Date End Date Rubén Boyle MD PCP - General Family Practice 03/08/16 Pamela Blanco GEOSCIENCE LABORATORY TECHNICIAN [facility] [address] [place] [address] Referring Physician 07/13/16 Pedro Segura MD [facility] [address] [place], [place] [address] Nephrology 10/03/16 Freddy Craft MD 516 [facility] 2A [place], [place] [address] Assigned Gastroenterology Provider 02/08/20 Abdifatah Van MD 717 [facility] [address] [place], [place] [address] Assigned Nephrology Provider 07/13/20 11/07/23 Nicole Carranza NP 420 [facility] 508 [place], [place] [address] Assigned Heart and Vascular Provider 01/09/22 Andressa Ruiz PA-C 420 [facility] 803 [place], [place] [address] Physician Fuel Yard Operator Endocrinology, Diabetes, and Metabolism 03/01/22 Ashlyn Storm, RN [facility] 711 [place] [address] Registered Nurse 03/03/22 09/15/22 Rubén Gunter [facility] 909 [place], [place] [address] Assigned MTM Pharmacist 02/27/22 Andressa Ruiz PA-C 420 [facility] 803 [place], [place] [address] Assigned Endocrinology Provider 03/13/22 09/07/23 Suzan Harry MD 420 [place], [place] [address] Nephrology 06/30/23 Yasmeen Powers MD 500 [place], [place] [address] Nephrology 10/24/23 Yasmeen Powers MD 500 [place], [place] [address] Assigned Nephrology Provider 11/08/23 documented as of this encounter
--- OUTSIDE RECORDS SUMMARY | 2023-12-15 10:08 | XMS_ITS | Encounter Summary ---
Author Organization [place] Address [address] [place] [address] Care Team Providers Care Forge Operator Name Role Phone Rubén Boyle MD Primary Care Provider Pamela Blanco TWO NEEDLE MACHINE OPERATOR Unavailable [phone] Pedro Segura MD Unavailable [phone] Freddy Craft MD Unavailable [phone] Abdifatah Van MD Unavailable Nicole Carranza TWO NEEDLE MACHINE OPERATOR Unavailable [phone] Andressa Ruiz-C Unavailable [phone] Ashlyn Storm RN Unavailable Rubén Gunter [facility] Unavailable Andressa Ruiz-C Unavailable [phone] Suzan Harry MD Unavailable [phone] Yasmeen Powers MD Unavailable [phone] Yasmeen Powers MD Unavailable [phone] Encounter Details Date Type Department Care Team (Late st Contact Info) Description 07/03/2019 Telephone [facility] [address] [place] [address] Georgina Stewart, [place] Social History Tobacco Use Types Packs/Day Years [...] encounter Miscellaneous Notes * Telephone Encounter - Pily Knutson - 07/03/2019 8:36 AM CDT Left message for patient to change schedule appointments. Asked patient to call back to schedule. 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, 07/10/16 rectal swab 06/21/2016 06/21/2016 documented as of this encounter Care Teams Forge Operator Relationship Specialty Start Date End Date Rubén Boyle MD PCP - General Family Practice 03/08/16 Pamela Blanco NP [facility] [address] [place], [place] 94[address] Referring Physician 07/13/16 Pedro Segura MD [facility] [address] [place], [place] 608027 Nephrology 10/03/16 Freddy Craft MD [address] [place] [address] Assigned Gastroenterology Provider 02/08/20 Abdifatah Van MD 717 [facility] [address] [place] [address] Assigned Nephrology Provider 07/13/20 11/07/23 Nicole Carranza TWO NEEDLE MACHINE OPERATOR 420 [facility] [address] [place], [place] [address] Assigned Heart and Vascular Provider 01/09/22 Andressa Ruiz PA-C 420 [facility] 803 [place], [place] [address] Physician Director Skills Endocrinology, Diabetes, and Metabolism 03/01/22 Ashlyn Storm RN [facility] [address] [place], [place] [address] Registered Nurse 03/03/22 09/15/22 Rubén Gunter [facility] [address] [place] [address] Assigned MTM Pharmacist 02/27/22 Andressa Ruiz PA-C 420 [facility] 803 [place], [place] 38[address]95 Assigned Endocrinology Provider 03/13/22 09/07/23 Suzan Harry MD [address] [place], [place] 45[address] Nephrology 06/30/23 Yasmeen Powers MD [address] [place] [address] Nephrology 10/24/23 Yasmeen Powers MD 500 [place] [address] Assigned Nephrology Provider 11/08/23 documented as of this encounter
--- OUTSIDE RECORDS SUMMARY | 2023-12-15 10:09 | XMS_ITS | Encounter Summary ---
Author Organization [place] Address [address] [place] [address] Care Team Providers Care Motion Study Analyst Name Role Phone Rubén Boyle MD Primary Care Provider [phone] Pamela Blanco GRAPHIC ART DESIGNER Unavailable Pedro Segura MD Unavailable Freddy Craft MD Unavailable Abdifatah Van MD Unavailable Nicole Carranza GRAPHIC ART DESIGNER Unavailable [phone] Andressa Ruiz-C Unavailable [phone] Ashlyn Storm RN Unavailable Rubén Gunter [facility] Unavailable Andressa Ruiz-C Unavailable [phone] Suzan Harry MD Unavailable [phone] Yasmeen Powers MD Unavailable Yasmeen Powers MD Unavailable [phone] Encounter Details Date Type Department Care Team (Late st Contact Info) Description 10/24/2018 External Order Results [facility] [address] [place] [address] Social History Tobacco Use Types [...] Comments TACROLIMUS BY TANDEM MASS SPECTROMETRY Routine 10/24/2018 8:12 AM CDT MAGNESIUM Routine 10/24/2018 8:12 AM CDT HEPATIC FUNCTION PANEL Routine 10/24/2018 8:12 AM CDT BASIC METABOLIC PANEL Routine 10/24/2018 8:12 AM CDT CBC WITH PLATELETS Routine 10/24/2018 8: 12 AM CDT documented in this encounter Results * Tacrolimus level (10/24/2018 8:12 AM CDT) Tacrolimus(FK-5 06) (External) 5.1 ng/mL LABDE SCAN Tacrolimus Last Dose (External) Not Given LABDE SCAN Blood specimen (specimen) 10/24/2018 8:12 AM CDT Narrative SAMANTHA PFT - 10/25/2018 2:34 PM CDT Verified by Cruzito Marlow on 10/25/2018. Patient Reported LAB - BLOOD ORDERABL ES SAMANTHA PFT LABDE SCAN * (ABNORMAL) CBC with platelets (10/24/2018 8:12 AM CDT) WBC Count (External) 2.2(L) 4.5 - 11.0 thou/cu mm LABDE SCAN RBC Count (External) 3.79(L) 4.30 - 5.90 mil/cu mm LABDE SCAN Hemoglobin (External) 12.4(L) 13.5 - 17.5 g/dL LABDE SCAN Hematocrit (External) 35.5(L) 37.0 - 53.0 % LABDE SCAN MCV (External) 94 80 - 100 fL LABDE SCAN MCH (External) 32.7 26.0 - 34.0 pg LABDE SCAN MCHC (External) 34.9 32.0 - 36.0 g/dL LABDE SCAN RDW (External) 14.8 11.5 - 15.5 % LABDE SCAN Platelet Count (External) 132(L) 140 - 440 thou/cu mm LABDE SCAN Blood specimen (specimen) 10/24/2018 8:12 AM CDT Narrative BREEZE PFT - 10/24/2018 12:51 PM CDT Verified by Cruzito Marlow on 10/24/2018. Patient Reported LAB - BLOOD ORDERABL ES Performing Organization Address City/[facility]/ZIP Co de Phone Number BREEZE PFT LABDE SCAN * Magnesium (10/24/2018 8:12 AM CDT) Magnesium (External) 1.9 1.6 - 2.6 mg/dL LABDE SCAN Blood specimen (specimen) 10/24/2018 8:12 AM CDT Narrative BREEZE PFT - 10/24/2018 12:51 PM CDT Verified by Cruzito Marlow on 10/24/2018. Patient Reported LAB - BLOOD ORDERABL ES BREEZE PFT LABDE SCAN * Hepatic panel (10/24/2018 8:12 AM CDT) Albumin (External) 4.1 3.2 - 4.6 g/dL LABDE SCAN Protein Total (External) 6.9 6.0 - 8.0 g/dL LABDE SCAN Bilirubin Total (External) 1.2 0.2 - 1.2 mg/dL LABDE SCAN Bilirubin Direct (External) 0.4 0.1 - 0.5 mg/dL LABDE SCAN Alk Phosphatase (External) 85 50 - 136 IU/L LABDE SCAN ALT (External) 12 8 - 45 IU/L LABDE SCAN AST (External) 17 2 - 40 IU/L LABDE SCAN Blood specimen (specimen) 10/24/2018 8:12 AM CDT Narrative SAMANTHA PFT - 10/24/2018 12:51 PM CDT Verified by Cruzito Marlow on 10/24/2018. Patient Reported LAB - BLOOD ORDERABL ES BREEZE PFT LABDE SCAN * (ABNORMAL) Basic metabolic panel (10/24/2018 8:12 AM CDT) Sodium (External) 138 135 - 145 mmol/L LABDE SCAN Potassium (External) 4.7 3.5 - 5.0 mmol/L LABDE SCAN Chloride (External) 107 98 - 110 mmol/L LABDE SCAN CO2 (External) 22 21 - 31 mmol/L LABDE SCAN Anion Gap (External) 9 5 - 18 LABDE SCAN Glucose (External) 226(H) 65 - 100 mg/dL LABDE SCAN Calcium (External) 9.0 8.5 - 10.5 mg/dL LABDE SCAN Urea Nitrogen (External) 22 8 - 25 mg/dL LABDE SCAN Creatinine (External) 1.82(H) 0.72 - 1.25 mg/dL LABDE SCAN BUN/Creatinine Ratio (External) 12 10 - 20 LABDE SCAN GFR Estimated (if ) (External) 45(L) >60 mL/min/1.7 3m2 LABDE SCAN GFR Estimated (External) 37(L) >60 mL/min/1.7 3m2 LABDE SCAN Blood specimen (specimen) 10/24/2018 8:12 AM CDT Narrative AMNAE PFT - 10/24/2018 12:51 PM CDT Verified by Cruzito Marlow on 10/24/2018. 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, 07/10/16 rectal swab 06/21/2016 06/21/2016 documented as of this encounter Care Teams Motion Study Analyst Relationship Specialty Start Date End Date Rubén Boyle MD PCP - General Family Practice 03/08/16 Pamela Blanco, GRAPHIC ART DESIGNER [facility] [address] [place] [address] Referring Physician 07/13/16 Pedro Segura MD [facility] [address] [place] [address] Nephrology 10/03/16 Freddy Craft MD [address] [facility] [place], [place] [address] Assigned Gastroenterology Provider 02/08/20 Abdifatah Van MD 717 [facility] [address] [place], [place] [address] Assigned Nephrology Provider 07/13/20 11/07/23 Nicole Carranza, [place] 420 [facility] 508 [place], [place] [address] Assigned Heart and Vascular Provider 01/09/22 Andressa Ruiz PA-C 420 [facility] 803 [place], [place] [address] Physician Enrollment Services Vice President Endocrinology, Diabetes, and Metabolism 03/01/22 Ashlyn Storm, RN [facility] 711 [place] [address] Registered Nurse 03/03/22 09/15/22 Rubén Gunter [facility] [address] [place] [address] Assigned MTM Pharmacist 02/27/22 Andressa Ruiz PA-C 420 [facility] 803 [place] [address] Assigned Endocrinology Provider 03/13/22 09/07/23 Suzan Harry MD 420 [place] [address] Nephrology 06/30/23 Yasmeen Powers MD 500 [place] [address] Nephrology 10/24/23 Yasmeen Powers MD 500 [place] [address] Assigned Nephrology Provider 11/08/23 documented as of this encounter
--- OUTSIDE RECORDS SUMMARY | 2023-12-15 10:09 | XMS_ITS | Encounter Summary ---
Author Organization [place] Address [address] [place] [address] Care Team Providers Care Canvas Marker Name Role Phone Rubén Boyle MD Primary Care Provider Pamela Blanco DIESEL ENGINE ASSEMBLER Unavailable [phone] Pedro Segura MD Unavailable Freddy Craft MD Unavailable Abdifatah Van MD Unavailable Nicole Carranza DIESEL ENGINE ASSEMBLER Unavailable [phone] Andressa Ruiz-C Unavailable Ashlyn Storm RN Unavailable [phone] Rubén Gunter [facility] Unavailable Andressa Ruiz-C Unavailable Suzan Harry MD Unavailable [phone] Yasmeen Powers MD Unavailable [phone] Yasmeen Powers MD Unavailable [phone] Encounter Details Date Type Department Care Team (Latest Contact Info) Description 12/15/2017 External Order Results [facility] [address] [place] [address] History of liver transplant (H); Status post kidney transplant; Long-term use of immunosuppressant medication Social History Tobacco Use Types Packs/Day Years Used Date Smoking Tobacco: Former Cigarettes Q uit: 04/18/1985 Smokeless Tobacco: Never Comments:quit years ago Alcohol Use Standard Drinks/Week Comments No 0 (1 standard drink = 0.6 oz pur e alcohol) quit Dec 2015 Sex and Gender Information Value Date Recorded Sex Assigned at Not on file Gender Identity Not on file Sexual Orientation Not on file documented as of this encounter Plan of Treatment Not on file documented as of this encounter Procedures Procedure Name Priority Date/Time Associated Diagnosis Comments TACROLIMUS BY TANDEM MASS SPECTROMETRY Routine 12/15/2017 10:17 AM CDT History of liver transplant (H) Status post kidney transplant Long-term use of immunosuppressant medication PHOSPHORUS Routine 12/15/2017 10:17 AM CDT History of liver transplant (H) Status post kidney transplant Long-term use of immunosuppressant medication MAGNESIUM Routine 12/15/2017 10:17 AM CDT History of liver transplant (H) Status post kidney transplant Long-term use of immunosuppressant medication HEPATIC FUNCTION PANEL Routine 12/15/2017 10:17 AM CDT History of liver transplant (H) Status post kidney transplant Long-term use of immunosuppressant medication BASIC METABOLIC PANEL Routine 12/15/2017 10:17 AM CDT History of liver transplant (H) Status post kidney transplant Long-term use of immunosuppressant medication CBC WITH PLATELETS Routine 12/15/2017 10 :17 AM CDT History of liver transplant (H) Status post kidney transplant Long-term use of immunosuppressant medication documented in this encounter Results * Tacrolimus level (12/15/2017 10:17 AM CDT) Tacrolimus(FK-5 06) (External) 5.1 See result comment ng/mL LABDE SCAN Tacrolimus Last Dose (External) Not given LABDE SCAN Blood specimen (specimen) 12/15/2017 10:17 AM CDT Narrative BREEZE PFT - 12/20/2017 7:24 AM CDT Verified by Cruzito Marlow on 12/20/2017. Freddy Dumont MD LAB - BLOOD ORD ERABLES BREEZE PFT LABDE SCAN * (ABNORMAL) CBC with platelets (12/15/2017 10:17 AM CDT) WBC Count (External) 2.5(L) 4.5 - 11.0 thou/cu mm LABDE SCAN RBC Count (External) 3.79(L) 4.30 - 5.90 mil/cu mm LABDE SCAN Hemoglobin (External) 12.2(L) 13.5 - 17.5 g/dL LABDE SCAN Hematocrit (External) 34.8(L) 37.0 - 53.0 % LABDE SCAN MCV (External) 92 80 - 100 fL LABDE SCAN MCH (External) 32.2 26.0 - 34.0 pg LABDE SCAN MCHC (External) 35.1 32.0 - 36.0 g/dL LABDE SCAN RDW (External) 14.3 11.5 - 15.5 % LABDE SCAN Platelet Count (External) 133(L) 140 - 440 thou/cu mm LABDE SCAN Blood specimen (specimen) 12/15/2017 10:17 AM CDT Narrative BREEZE PFT - 12/16/2017 7:40 AM CDT Verified by Cruzito Marlow on 12/16/2017. Freddy Dumont MD LAB - BLOOD ORD ERALASHAE [facility] PFT LABDE SCAN * Phosphorus (12/15/2017 10:17 AM CDT) Phosphorus (External) 3.0 2.3 - 4.7 mg/dL LABDE SCAN Blood specimen (specimen) 12/15/2017 10:17 AM CDT Narrative BREEZE PFT - 12/16/2017 7:40 AM CDT Verified by Cruzito Marlow on 12/16/2017. Freddy Dumont MD LAB - BLOOD ORD ERABLES BREEZE PFT LABDE SCAN * Magnesium (12/15/2017 10:17 AM CDT) Magnesium (External) 2.1 1.6 - 2.6 mg/dL LABDE SCAN Blood specimen (specimen) 12/15/2017 10:17 AM CDT Narrative BREEZE PFT - 12/16/2017 7:40 AM CDT Verified by Cruzito Marlow on 12/16/2017. Freddy Dumont MD LAB - BLOOD ORD ERABLES Performing Organization Address [facility] [address]/[facility] Co de Phone Number BREEZE PFT LABDE SCAN * (ABNORMAL) Hepatic panel (12/15/2017 10:17 AM CDT) Albumin (External) 4.3 3.2 - 4.6 g/dL LABDE SCAN Protein Total (External) 7.1 6.0 - 8.0 g/dL LABDE SCAN Bilirubin Total (External) 1.4(H) 0.2 - 1.2 mg/dL LABDE SCAN Bilirubin Direct (External) 0.4 0.1 - 0.5 mg/dL LABDE SCAN Alk Phosphatase (External) 91 50 - 136 IU/L LABDE SCAN ALT (External) 7(L) 8 - 45 IU/L LABDE SCAN AST (External) 16 2 - 40 IU/L LABDE SCAN Blood specimen (specimen) 12/15/2017 10:17 AM CDT Narrative BREEZE PFT - 12/16/2017 7:40 AM CDT Verified by Cruzito Marlow on 12/16/2017. Freddy Dumont MD LAB - BLOOD ORD ERALASHAE Performing Organization Address [facility] [address]/ZIP Co de Phone Number BREEZE PFT LABDE SCAN * (ABNORMAL) Basic metabolic panel (12/15/2017 10:17 AM CDT) Sodium (External) 139 135 - 145 mmol/L LABDE SCAN Potassium (External) 4.3 3.5 - 5.0 mmol/L LABDE SCAN Chloride (External) 105 98 - 110 mmol/L LABDE SCAN CO2 (External) 26 21 - 31 mmol/L LABDE SCAN Anion Gap (External) 8 5 - 18 LABDE SCAN Glucose (External) 174(H) 65 - 100 mg/dL LABDE SCAN Calcium (External) 9.4 8.5 - 10.5 mg/dL LABDE SCAN Urea Nitrogen (External) 30(H) 8 - 25 mg/dL LABDE SCAN Creatinine (External) 1.91(H) 0.72 - 1.25 mg/dL LABDE SCAN BUN/Creatinine Ratio (External) 16 10 - 20 LABDE SCAN GFR Estimated (if ) (External) 43(L) >60 ml/min/1.7 3m2 LABDE SCAN GFR Estimated (External) 36(L) >60 ml/min/1.7 3m2 LABDE SCAN Blood specimen (specimen) 12/15/2017 10:17 AM CDT Narrative SAMANTHA PFT - 12/16/2017 7:40 AM CDT Verified by Cruzito Marlow on 12/16/2017. Freddy Dumont MD LAB - BLOOD ORD [...] documented as of this encounter Care Teams Canvas Marker Relationship Specialty Start Date End Date Rubén Boyle MD PCP - General Family Practice 03/08/16 Pamela Blanco NP [address] [place] [address] Referring Physician 07/13/16 Pedro Segura MD [facility] [place] [address] [place] [address] Nephrology 10/03/16 Freddy Craft MD 516 [facility] 2[address] [place], [place] [address] Assigned Gastroenterology Provider 02/08/20 Abdifatah Van MD 717 [facility] [address] [place], [place] [address] Assigned Nephrology Provider 07/13/20 11/07/23 Nicole Carranza NP 420 [facility] 508 [place], [place] [address] Assigned Heart and Vascular Provider 01/09/22 Andressa Ruiz PA-C 420 [facility] 803 [place], [place] [address] Physician Special Librarian Endocrinology, Diabetes, and Metabolism 03/01/22 Ashlyn Storm, RN [facility] 711 [place], [place] [address] Registered Nurse 03/03/22 09/15/22 Rubén Gunter [facility] [address] [place] [address] [id number] Assigned MTM Pharmacist 02/27/22 Andressa Ruiz PA-C 420 [facility] 803 [place] [address] Assigned Endocrinology Provider 03/13/22 09/07/23 Suzan Harry MD [address] [place] [address] Nephrology 06/30/23 Yasmeen Powers MD 500 [place] [address] Nephrology 10/24/23 Yasmeen Powers MD [address] [place] [address] Assigned Nephrology Provider 11/08/23 documented as of this encounter
--- OUTSIDE RECORDS SUMMARY | 2023-12-15 10:09 | XMS_ITS | Encounter Summary ---
Author Organization [place] Address [address] [place] [address] Care Team Providers Care Curb Supervisor Name Role Phone Rubén Boyle MD Primary Care Provider Pamela Blanco TIRE SORTER Unavailable Pedro Segura MD Unavailable [phone] Freddy Craft MD Unavailable Abdifatah Van MD Unavailable Nicole Carranza TIRE SORTER Unavailable [phone] Andressa Ruiz-C Unavailable Ashlyn Storm RN Unavailable Rubén Gunter [facility] Unavailable Andressa Ruiz-C Unavailable Suzan Harry MD Unavailable [phone] Yasmeen Powers MD Unavailable [phone] Yasmeen Powers MD Unavailable [phone] Encounter Details Date Type Department Care Team (Latest Contact Info) Description 01/25/2018 External Order Results [facility] [address] [place] [address] History of liver transplant (H); [...] Comments TACROLIMUS BY TANDEM MASS SPECTROMETRY Routine 01/25/2018 10:24 AM CDT History of liver transplant (H) Status post kidney transplant Long-term use of immunosuppressant medication MAGNESIUM Routine 01/25/2018 10:24 AM CDT History of liver transplant (H) Status post kidney transplant Long-term use of immunosuppressant medication HEPATIC FUNCTION PANEL Routine 01/25/2018 10:24 AM CDT History of liver transplant (H) Status post kidney transplant Long-term use of immunosuppressant medication BASIC METABOLIC PANEL Routine 01/25/2018 10:24 AM CDT History of liver transplant (H) Status post kidney transplant Long-term use of immunosuppressant medication CBC WITH PLATELETS Routine 01/25/2018 10 :24 AM CDT History of liver transplant (H) Status post kidney transplant Long-term use of immunosuppressant medication documented in this encounter Results * Tacrolimus level (01/25/2018 10:24 AM CDT) Tacrolimus(FK-5 06) (External) 4.9 4 - 6 ng/mL LABDE SCAN Tacrolimus Last Dose (External) Not given LABDE SCAN Blood specimen (specimen) 01/25/2018 10:24 AM CDT Narrative SAMANTHA PFT - 01/27/2018 9:42 AM CDT Verified by Myrna Monreal on 01/27/2018. Freddy Dumont MD LAB - BLOOD ORD ERALASHAE BREEZE PFT LABDE SCAN * Magnesium (01/25/2018 10:24 AM CDT) Magnesium (External) 2.1 1.6 - 2.6 mg/dL LABDE SCAN Blood specimen (specimen) 01/25/2018 10:24 AM CDT Narrative BREEZE PFT - 01/26/2018 9:59 AM CDT Verified by Rhiannon Cain on 01/26/2018. Freddy Dumont MD LAB - BLOOD ORD ERALASHAE [facility] PFT LABDE SCAN * (ABNORMAL) Basic metabolic panel (01/25/2018 10:24 AM CDT) Sodium (External) 134(L) 135 - 145 mmol/L LABDE SCAN Potassium (External) 4.0 3.5 - 5.0 mmol/L LABDE SCAN Chloride (External) 101 98 - 110 mmol/L LABDE SCAN CO2 (External) 24 21 - 31 mmol/L LABDE SCAN Anion Gap (External) 9 5 - 18 LABDE SCAN Glucose (External) 252(H) 65 - 100 mg/dL LABDE SCAN Calcium (External) 9.2 8.5 - 10.5 mg/dL LABDE SCAN Urea Nitrogen (External) 28(H) 8 - 25 mg/dL LABDE SCAN Creatinine (External) 2.09(H) 0.72 - 1.25 mg/dL LABDE SCAN BUN/Creatinine Ratio (External) 13 10 - 20 LABDE SCAN GFR Estimated (if ) (External) 39(L) >60 ml/min/1.7 3m2 LABDE SCAN GFR Estimated (External) 32(L) >60 ml/min/1.7 3m2 LABDE SCAN Blood specimen (specimen) 01/25/2018 10:24 AM CDT Narrative BREEZE PFT - 01/26/2018 9:59 AM CDT Verified by Rhiannon Cain on 01/26/2018. Freddy Dumont MD LAB - BLOOD ORD ERABLES SAMANTHA PFT LABDE SCAN * (ABNORMAL) CBC with platelets (01/25/2018 10:24 AM CDT) WBC Count (External) 2.7(L) 4.5 - 11.0 thou/cu mm LABDE SCAN RBC Count (External) 3.77(L) 4.30 - 5.90 mil/cu mm LABDE SCAN Hemoglobin (External) 12.0(L) 13.5 - 17.5 g/dL LABDE SCAN Hematocrit (External) 35.0(L) 37.0 - 53.0 % LABDE SCAN MCV (External) 93 80 - 100 fl LABDE SCAN MCH (External) 31.8 26.0 - 34.0 pg LABDE SCAN MCHC (External) 34.3 32.0 - 36.0 g/dL LABDE SCAN RDW (External) 14.1 11.5 - 15.5 % LABDE SCAN Platelet Count (External) 140 140 - 440 thou/cu mm LABDE SCAN Blood specimen (specimen) 01/25/2018 10:24 AM CDT Narrative SAMANTHA PFT - 01/26/2018 9:58 AM CDT Verified by Rhiannon Cain on 01/26/2018. Freddy Dumont MD LAB - BLOOD ORD ERABLES SAMANTHA PFT LABDE SCAN * Hepatic panel (01/25/2018 10:24 AM CDT) Albumin (External) 4.2 3.2 - 4.6 g/dL LABDE SCAN Protein Total (External) 7.2 6.0 - 8.0 g/dL LABDE SCAN Bilirubin Total (External) 1.1 0.2 - 1.2 mg/dL LABDE SCAN Bilirubin Direct (External) 0.3 0.1 - 0.5 mg/dL LABDE SCAN Alk Phosphatase (External) 98 50 - 136 IU/L LABDE SCAN ALT (External) 8 8 - 45 IU/L LABDE SCAN AST (External) 17 2 - 40 IU/L LABDE SCAN Blood specimen (specimen) 01/25/2018 10:24 AM CDT Narrative SAMANTHA PFT - 01/26/2018 9:58 AM CDT Verified by Rhiannon Cain on 01/26/2018. Freddy Dumont MD LAB - BLOOD ORD [...] documented as of this encounter Care Teams Curb Supervisor Relationship Specialty Start Date End Date Rubén Boyle MD PCP - General Family Practice 03/08/16 Pamela Blanco NP [facility] [address] [place] [address] Referring Physician 07/13/16 Pedro Segura MD [facility] [address] [place] [address] Nephrology 10/03/16 Freddy Craft MD [address] [place] [address] Assigned Gastroenterology Provider 02/08/20 Abdifatah Van MD [address] [place] [address] Assigned Nephrology Provider 07/13/20 11/07/23 Nicole Carranza NP 420 [facility] 508 [place], [place] [address] Assigned Heart and Vascular Provider 01/09/22 Andressa Ruiz PA-C 420 [facility] 803 [place], [place] [address] Physician Detailer Pharmaceuticals Endocrinology, Diabetes, and Metabolism 03/01/22 Ashlyn Storm, RN [facility] 7[address] [place], [place] [address] Registered Nurse 03/03/22 09/15/22 Rubén Gunter [facility] [address] [place] [address] [id number] Assigned MTM Pharmacist 02/27/22 Andressa Ruiz PA-C 420 [facility] 803 [place], [place] [address]415 Assigned Endocrinology Provider 03/13/22 09/07/23 Suzan Harry MD 420 [place] [address] Nephrology 06/30/23 Yasmeen Powers MD 500 [place], [place] [address] Nephrology 10/24/23 Yasmeen Powers MD 500 [place] [address] Assigned Nephrology Provider 11/08/23 documented as of this encounter
--- OUTSIDE RECORDS SUMMARY | 2023-12-15 10:09 | XMS_ITS | Encounter Summary ---
Author Organization [facility] Address [address] [place] [address] Care Team Providers Care Silk Finisher Name Role Phone Rubén Boyle MD Primary Care Provider Pamela Blanco NATURAL RESOURCES EXTENSION EDUCATOR Unavailable Pedro Segura MD Unavailable Freddy Craft MD Unavailable [phone] Abdifatah Van MD Unavailable Nicole Carranza NATURAL RESOURCES EXTENSION EDUCATOR Unavailable [phone] Andressa Ruiz-C Unavailable [phone] Ashlyn Storm RN Unavailable Rubén Gunter [facility] Unavailable Andressa Ruiz-C Unavailable Suzan Harry MD Unavailable [phone] Yasmeen Powers MD Unavailable [phone] Yasmeen Powers MD Unavailable [phone] Encounter Details Date Type Department Care Team (Latest Contact Info) Description 03/16/2018 External Order Results [facility] [address] [place] [address] History of liver transplant (H); [...] Procedure Name Priority Date/Time Associated Diagnosis Comments UA MACROSCOPIC WITH REFLEX TO MICRO Routine 03/16/2018 9:59 AM CLINICAL AUDIOLOGIST History of liver transplant (H) Status post kidney transplant Long-term use of immunosuppressant medication MAGNESIUM Routine 03/16/2018 9:14 AM CLINICAL AUDIOLOGIST History of liver transplant (H) Status post kidney transplant Long-term use of immunosuppressant medication LIPID PROFILE Routine 03/16/2018 9:14 AM CLINICAL AUDIOLOGIST HEPATIC FUNCTION PANEL Routine 03/16/2018 9:14 AM CLINICAL AUDIOLOGIST History of liver transplant (H) Status post kidney transplant Long-term use of immunosuppressant medication BASIC METABOLIC PANEL Routine 03/16/2018 9:14 AM CLINICAL AUDIOLOGIST History of liver transplant (H) Status post kidney transplant Long-term use of immunosuppressant medication CBC WITH PLATELETS Routine 03/16/2018 9: 14 AM CLINICAL AUDIOLOGIST History of liver transplant (H) Status post kidney transplant Long-term use of immunosuppressant medication documented in this encounter Results * *UA reflex to Microscopic (03/16/2018 9:59 AM CLINICAL AUDIOLOGIST) Color Urine (External) YEL Yellow LABDE SCAN Appearance Urine (External) Clear Clear LABDE SCAN Specific [place] Urine (External) 1.015 1.010 - 1.025 LABDE SCAN pH Urine (External) 6.5 5.5 - 8.5 LABDE SCAN Urobilinogen (External) Normal EU/dl LABDE SCAN Protein Albumin Ur (External) NEG Negative mg/dL LABDE SCAN Glucose Urine (External) NEG Negative mg/dL LABDE SCAN Ketones Urine (External) NEG Negative mg/dL LABDE SCAN Bilirubin Urine (External) NEG Negative LABDE SCAN Blood Urine (External) NEG Negative LABDE SCAN Nitrites Urine (External) NEG Negative LABDE SCAN Leukocyte Esterase Urine (External) NEG Negative LABDE SCAN Urine specimen (specimen) 03/16/2018 9:59 AM CLINICAL AUDIOLOGIST Narrative SAMANTHA PFT - 03/16/2018 1:39 PM CLINICAL AUDIOLOGIST Verified by Rhiannon Cain on 03/16/2018. Freddy Dumont MD LAB - URINE ORD ERABLES Performing Organization Address City/[facility]/ZIP Co de Phone Number AMNAE PFT LABDE SCAN * (ABNORMAL) Lipid Profile (03/16/2018 9:14 AM CLINICAL AUDIOLOGIST) Cholesterol (External) 197 100 - 199 mg/dL LABDE SCAN Triglycerides (External) 156(H) <150 mg/dL LABDE SCAN HDL Cholesterol (External) 38(L) >40 mg/dL LABDE SCAN LDL-Cholesterol (External) 128 <=130 mg/dL LABDE SCAN Blood specimen (specimen) 03/16/2018 9:14 AM CLINICAL AUDIOLOGIST Narrative ERICKKayli PFT - 03/16/2018 1:39 PM CLINICAL AUDIOLOGIST Verified by Rhiannon Cain on 03/16/2018. Patient Reported LAB - BLOOD ORDERABL ES Performing Organization Address City/[facility]/ZIP Co de Phone Number AMNAE PFT LABDE SCAN * (ABNORMAL) Basic metabolic panel (03/16/2018 9:14 AM CLINICAL AUDIOLOGIST) Sodium (External) 138 135 - 145 mmol/L LABDE SCAN Potassium (External) 4.4 3.5 - 5.0 mmol/L LABDE SCAN Chloride (External) 103 98 - 110 mmol/L LABDE SCAN CO2 (External) 26 21 - 31 mmol/L LABDE SCAN Anion Gap (External) 9 5 - 18 LABDE SCAN Glucose (External) 188(H) 65 - 100 mg/dL LABDE SCAN Calcium (External) 9.5 8.5 - 10.5 mg/dL LABDE SCAN Urea Nitrogen (External) 28(H) 8 - 25 mg/dL LABDE SCAN Creatinine (External) 2.08(H) 0.72 - 1.25 mg/dL LABDE SCAN BUN/Creatinine Ratio (External) 13 10 - 20 LABDE SCAN GFR Estimated (if ) (External) 39(L) >60 ml/min/1.7 3m2 LABDE SCAN GFR Estimated (External) 32(L) >60 ml/min/1.7 3m2 LABDE SCAN Blood specimen (specimen) 03/16/2018 9:14 AM CLINICAL AUDIOLOGIST Narrative AMNAE PFT - 03/16/2018 1:39 PM CLINICAL AUDIOLOGIST Verified by Rhiannon Cain on 03/16/2018. Freddy Dumont MD LAB - BLOOD ORD ERABLES SAMANTHA PFT LABDE SCAN * (ABNORMAL) CBC with platelets (03/16/2018 9:14 AM CLINICAL AUDIOLOGIST) WBC Count (External) 3.5(L) 4.5 - 11.0 thou/cu mm LABDE SCAN RBC Count (External) 4.00(L) 4.30 - 5.90 mil/cu mm LABDE SCAN Hemoglobin (External) 12.9(L) 13.5 - 17.5 g/dL LABDE SCAN Hematocrit (External) 36.8(L) 37.0 - 53.0 % LABDE SCAN MCV (External) 92 80 - 100 fL LABDE SCAN MCH (External) 32.3 26.0 - 34.0 pg LABDE SCAN MCHC (External) 35.1 32.0 - 36.0 g/dL LABDE SCAN RDW (External) 14.4 11.5 - 15.5 % LABDE SCAN Platelet Count (External) 156 140 - 440 thou/cu mm LABDE SCAN Blood specimen (specimen) 03/16/2018 9:14 AM CLINICAL AUDIOLOGIST Narrative SAMANTHA PFT - 03/16/2018 1:39 PM CLINICAL AUDIOLOGIST Verified by Rhiannon Cain on 03/16/2018. Freddy Dumont MD LAB - BLOOD ORD ERABLES BREEZE PFT LABDE SCAN * (ABNORMAL) Hepatic panel (03/16/2018 9:14 AM CLINICAL AUDIOLOGIST) Albumin (External) 4.4 3.2 - 4.6 g/dL LABDE SCAN Protein Total (External) 7.5 6.0 - 8.0 g/dL LABDE SCAN Bilirubin Total (External) 1.7(H) 0.2 - 1.2 mg/dL LABDE SCAN Bilirubin Direct (External) 0.5 0.1 - 0.5 mg/dL LABDE SCAN Alk Phosphatase (External) 96 50 - 136 IU/L LABDE SCAN ALT (External) 5(L) 8 - 45 IU/L LABDE SCAN AST (External) 15 2 - 40 IU/L LABDE SCAN Blood specimen (specimen) 03/16/2018 9:14 AM CLINICAL AUDIOLOGIST Narrative BREEZE PFT - 03/16/2018 1:39 PM CLINICAL AUDIOLOGIST Verified by Rhiannon Cain on 03/16/2018. Freddy Dumont MD LAB - BLOOD ORD ERABLES Performing Organization Address [facility] Co de Phone Number BREEZE PFT LABDE SCAN * Magnesium (03/16/2018 9:14 AM CLINICAL AUDIOLOGIST) Magnesium (External) 2.2 1.6 - 2.6 mg/dL LABDE SCAN Blood specimen (specimen) 03/16/2018 9:14 AM CLINICAL AUDIOLOGIST Narrative BREEZE PFT - 03/16/2018 1:39 PM CLINICAL AUDIOLOGIST Verified by Rhiannon Cain on 03/16/2018. Freddy Dumont MD LAB - BLOOD ORD ERABLES BREEZE PFT LABDE SCAN documented in this [...] documented as of this encounter Care Teams Silk Finisher Relationship Specialty Start Date End Date Rubén Boyle MD PCP - General Family Practice 03/08/16 Pamela Blanco, NATURAL RESOURCES EXTENSION EDUCATOR [facility] [address] [place] [address] Referring Physician 07/13/[address] [facility] [address] [place] [address] Nephrology 10/03/16 Freddy Craft MD 516 [facility] [facility] [address] [place], [place] [address] Assigned Gastroenterology Provider 02/08/20 Abdifatah Van MD 717 [facility] [address] [place], [place] [address] Assigned Nephrology Provider 07/13/20 11/07/23 Nicole Carranza NP 420 [facility] [address] [place], [place] [address] Assigned Heart and Vascular Provider 01/09/22 Andressa Ruiz PA-C 420 [facility] [address]03 [place], [place] [address] Physician Pharmacy Data Analyst Endocrinology, Diabetes, and Metabolism 03/01/22 Ashlyn Storm RN [facility] [address] [place] [address] Registered Nurse 03/03/22 09/15/22 Rubén Gunter [facility] [address] [place] [address] Assigned MTM Pharmacist 02/27/22 Andressa Ruiz PA-C 420 [facility] 803 [place] [address] Assigned Endocrinology Provider 03/13/22 09/07/23 Suzan Harry MD [address] [place] [address] Nephrology 06/30/23 Yasmeen Powers MD 500 [place] [address] Nephrology 10/24/23 Yasmeen Powers MD [address] [place] [address] Assigned Nephrology Provider 11/08/23 documented as of this encounter
--- OUTSIDE RECORDS SUMMARY | 2023-12-15 10:09 | XMS_ITS | Encounter Summary ---
Author Organization [facility] Address [address] [place] [address] Care Team Providers Care Optometry Assistant Name Role Phone Rubén Boyle MD Primary Care Provider Pamela Blanco TRANSMISSION MAINTENANCE SUPERVISOR Unavailable Pedro Segura MD Unavailable [phone] Freddy Craft MD Unavailable Abdifatah Van MD Unavailable Nicole Carranza TRANSMISSION MAINTENANCE SUPERVISOR Unavailable [phone] Andressa Ruiz-C Unavailable Ashlyn Storm RN Unavailable [phone] Rubén Gunter [facility] Unavailable Andressa Ruiz-C Unavailable Suzan Harry MD Unavailable [phone] Yasmeen Powers MD Unavailable [phone] Yasmeen Powers MD Unavailable [phone] Encounter Details Date Type Department Care Team (Late st Contact Info) Description 05/17/2019 External Order Results [facility] [address] [place] [address] Social History Tobacco Use Types [...] Comments CBC WITH PLATELETS & DIFFERENTIAL Routine 05/17/2019 10:10 AM CRUSHER AND BLENDER OPERATOR LIPID PROFILE Routine 05/17/2019 10:10 AM CRUSHER AND BLENDER OPERATOR HEMOGLOBIN A1C Routine 05/17/2019 10:10 AM CRUSHER AND BLENDER OPERATOR ALT Routine 05/17/2019 10:10 AM CRUSHER AND BLENDER OPERATOR BASIC METABOLIC PANEL Routine 05/17/2019 10:10 AM CRUSHER AND BLENDER OPERATOR ALBUMIN RANDOM URINE QUANTITATIVE Routine 05/17/2019 10:05 AM CRUSHER AND BLENDER OPERATOR documented in this encounter Results * (ABNORMAL) Lipid Profile (05/17/2019 10:10 AM CRUSHER AND BLENDER OPERATOR) Cholesterol (External) 170 90 - 200 MG/DL LABDE SCAN Triglycerides (External) 206(H) 40 - 197 U/L LABDE SCAN HDL Cholesterol (External) 88 <100 mg/dl LABDE SCAN LDL-Cholesterol (External) 41 >=40 mg/dl LABDE SCAN Blood specimen (specimen) 05/17/2019 10:10 AM CRUSHER AND BLENDER OPERATOR Narrative SAMANTHA PFT - 05/23/2019 7:16 AM CRUSHER AND BLENDER OPERATOR Verified by Pedrito Stallworth on 05/23/2019. Patient Reported LAB - BLOOD ORDERABL ES BRECARISA PFT LABDE SCAN * ALT (05/17/2019 10:10 AM CRUSHER AND BLENDER OPERATOR) ALT (External) 13 4 - 50 U/L LABDE SCAN Blood specimen (specimen) 05/17/2019 10:10 AM CRUSHER AND BLENDER OPERATOR Narrative BREEZE PFT - 05/23/2019 7:16 AM CRUSHER AND BLENDER OPERATOR Verified by Pedrito Stallworth on 05/23/2019. Patient Reported LAB - BLOOD ORDERABL ES Performing Organization Address [facility]/ZIP Co de Phone Number [facility] PFT LABDE SCAN * (ABNORMAL) Basic metabolic panel (05/17/2019 10:10 AM CRUSHER AND BLENDER OPERATOR) Glucose (External) 238(H) 60 - 115 mg/dL LABDE SCAN Urea Nitrogen (External) 20 7 - 30 mg/dL LABDE SCAN Creatinine (External) 1.4 0.5 - 1.5 mg/dl LABDE SCAN Sodium (External) 139 135 - 149 mmol/l LABDE SCAN Potassium (External) 5.4(H) 3.6 - 5.1 mmol/l LABDE SCAN Chloride (External) 104 96 - 114 mmol/l LABDE SCAN CO2 (External) 28 20 - 32 mmol/l LABDE SCAN Calcium (External) 9.0 8.4 - 10.6 mg/dL LABDE SCAN Blood specimen (specimen) 05/17/2019 10:10 AM CRUSHER AND BLENDER OPERATOR Narrative SAMANTHA PFT - 05/23/2019 7:16 AM CRUSHER AND BLENDER OPERATOR Verified by Pedrito Stallworth on 05/23/2019. Patient Reported LAB - BLOOD ORDERABL ES Performing Organization Address [facility] Co de Phone Number [facility] PFT LABDE SCAN * (ABNORMAL) Hemoglobin A1c (05/17/2019 10:10 AM CRUSHER AND BLENDER OPERATOR) Hemoglobin A1C (External) 7.40(H) <=6.9 % LABDE SCAN Blood specimen (specimen) 05/17/2019 10:10 AM CRUSHER AND BLENDER OPERATOR Narrative ERICKEZE PFT - 05/23/2019 7:16 AM CRUSHER AND BLENDER OPERATOR Verified by Pedrito Stallworth on 05/23/2019. Patient Reported LAB - BLOOD ORDERABL ES Performing Organization Address City/[facility]/ZIP Co de Phone Number SAMANTHA PFT LABDE SCAN * (ABNORMAL) CBC with platelets differential (05/17/2019 10:10 AM CRUSHER AND BLENDER OPERATOR) WBC Count (External) 2.5(L) 4.5 - 11.0 K/ul LABDE SCAN RBC Count (External) 3.85(L) 4.30 - 5.90 M/ul LABDE SCAN Hemoglobin (External) 12.7(L) 13.5 - 17.5 g/dl LABDE SCAN Hematocrit (External) 36.1(L) 37 - 53 % LABDE SCAN MCV (External) 94 80 - 100 fl LABDE SCAN MCH (External) 33 26 - 34 pg LABDE SCAN MCHC (External) 35 32 - 36 GM/DL LABDE SCAN Platelet Count (External) 135(L) 140 - 440 K/ul LABDE SCAN % Neutrophils (External) 66.9 42 - 72 % LABDE SCAN % Lymphocytes (External) 17.9(L) 20 - 44 % LABDE SCAN % Monocytes (External) 10.8 0 - 11 % LABDE SCAN % Eosinophils (External) 3.2 0 - 7 % LABDE SCAN % Basophils (External) 0.4 0.0 - 3.0 % LABDE SCAN Absolute Neutrophils (External) 1.7 1.7 - 7.0 K/ul LABDE SCAN Absolute Lymphocytes (External) 0.5(L) 0.9 - 2.9 K/ul LABDE SCAN Absolute Monocytes (External) 0.3 0.0 - 0.9 K/ul LABDE SCAN Absolute Eosinophils (External) 0.1 0.0 - 0.5 K/ul LABDE SCAN Absolute Basophils (External) 0.0 0.0 - 0.3 K/ul LABDE SCAN Absolute Immature Granulocytes (External) 0.0 K/ul LABDE SCAN % Immature Granulocytes (External) 0.8 % LABDE SCAN Blood specimen (specimen) 05/17/2019 10:10 AM CRUSHER AND BLENDER OPERATOR Narrative SAMANTHA PFT - 05/23/2019 7:16 AM CRUSHER AND BLENDER OPERATOR Verified by Pedrito Stallworth on 05/23/2019. Patient Reported LAB - BLOOD ORDERABL ES SAMANTHA PFT LABDE SCAN * Albumin Random Urine Quantitative with Creat Ratio (05/17/2019 10:05 AM CRUSHER AND BLENDER OPERATOR) Microalbumin Urine (External) 1 mg/dl LABDE SCAN Creatinine Urine mg/dL (External) 106 mg/dl LABDE SCAN Microalbumin Urine mg/g Cr (External) 9 0 - 30 mg/g LABDE SCAN Urine specimen (specimen) 05/17/2019 10:05 AM CRUSHER AND BLENDER OPERATOR Narrative SAMANTHA PFT - 05/23/2019 7:16 AM CRUSHER AND BLENDER OPERATOR Verified by Pedrito Stallworth on 05/23/2019. 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, 07/10/16 rectal swab 06/21/2016 06/21/2016 documented as of this encounter Care Teams Optometry Assistant Relationship Specialty Start Date End Date Rubén Boyle MD PCP - General Family Practice 03/08/16 Pamela Blanco NP [facility] [address], [place] [address] Referring Physician 07/13/16 Pedro Segura MD [facility] [address], [place] [address] Nephrology 10/03/16 Freddy Craft MD [address] [place] [address] Assigned Gastroenterology Provider 02/08/20 Abdifatah Van MD [address]17 [facility] [address] [place] [address] Assigned Nephrology Provider 07/13/20 11/07/23 Nicole Carranza NP 420 [facility] 508 [place], [place] [address] Assigned Heart and Vascular Provider 01/09/22 Andressa Ruiz PA-C 420 [facility] 803 [place], [place] [address] Physician Branch Logistics Supervisor Endocrinology, Diabetes, and Metabolism 03/01/22 Ashlyn Storm RN [facility] 711 [place], [place] [address] Registered Nurse 03/03/22 09/15/22 Rubén Gunter [facility] 909 [place], [place] [address] Assigned MTM Pharmacist 02/27/22 Andressa Ruiz PA-C 420 [facility] 803 [place], [place] [address] Assigned Endocrinology Provider 03/13/22 09/07/23 Suzan Harry MD 420 [place], [place] [address] Nephrology 06/30/23 Yasmeen Powers MD 500 [place], [place] [address] Nephrology 10/24/23 Yasmeen Powers MD NPI: [id number] [place] [id number] Assigned Nephrology Provider 11/08/23 documented as of this encounter
--- OUTSIDE RECORDS SUMMARY | 2023-12-15 10:09 | XMS_ITS | Encounter Summary ---
Author Organization [facility] Address [address] [place] [address] Care Team Providers Care Sour Bleaching Pleater Name Role Phone Rubén Boyle MD Primary Care Provider Pamela Blanco AIR TRAFFIC CONTROL MANAGER Unavailable [phone] Pedro Segura MD Unavailable Freddy Craft MD Unavailable [phone] Abdifatah Van MD Unavailable Nicole Carranza AIR TRAFFIC CONTROL MANAGER Unavailable [phone] Andressa Ruiz-C Unavailable [phone] Ashlyn Storm RN Unavailable [phone] Rubén Gunter [facility] Unavailable Andressa Ruiz-C Unavailable [phone] Suzan Harry MD Unavailable [phone] Yasmeen Powers MD Unavailable [phone] Yasmeen Powers MD Unavailable [phone] Encounter Details Date Type Department Care Team (Latest Contact Info) Description 11/16/[address] [facility] [address] [place] [address] History of liver transplant (H); [...] Comments TACROLIMUS BY TANDEM MASS SPECTROMETRY Routine 11/16/2017 9:45 AM CDT History of liver transplant (H) Status post kidney transplant Long-term use of immunosuppressant medication PHOSPHORUS Routine 11/16/2017 9:45 AM CDT History of liver transplant (H) Status post kidney transplant Long-term use of immunosuppressant medication MAGNESIUM Routine 11/16/2017 9:45 AM CDT History of liver transplant (H) Status post kidney transplant Long-term use of immunosuppressant medication HEPATIC FUNCTION PANEL Routine 11/16/2017 9:45 AM CDT History of liver transplant (H) Status post kidney transplant Long-term use of immunosuppressant medication BASIC METABOLIC PANEL Routine 11/16/2017 9:45 AM CDT History of liver transplant (H) Status post kidney transplant Long-term use of immunosuppressant medication CBC WITH PLATELETS Routine 11/16/2017 9: 45 AM CDT History of liver transplant (H) Status post kidney transplant Long-term use of immunosuppressant medication documented in this encounter Results * Tacrolimus level (11/16/2017 9:45 AM CDT) Tacrolimus(FK-5 06) (External) 5.2 See result comment ng/mL LABDE SCAN Tacrolimus Last Dose (External) 11/15/2017 @2000 LABDE SCAN Blood specimen (specimen) 11/16/2017 9:45 AM CDT Narrative BREEZE PFT - 11/18/2017 5:55 AM CDT Verified by Cruzito Marlow on 11/18/2017. Freddy Dumont MD LAB - BLOOD ORD ERABLES [facility] PFT LABDE SCAN * (ABNORMAL) CBC with platelets (11/16/2017 9:45 AM CDT) WBC Count (External) 3.0(L) 4.5 - 11.0 thou/cu mm LABDE SCAN RBC Count (External) 3.75(L) 4.30 - 5.90 mil/cu mm LABDE SCAN Hemoglobin (External) 12.2(L) 13.5 - 17.5 g/dL LABDE SCAN Hematocrit (External) 34.5(L) 37.0 - 53.0 % LABDE SCAN MCV (External) 92 80 - 100 fL LABDE SCAN MCH (External) 32.5 26.0 - 34.0 pg LABDE SCAN MCHC (External) 35.4 32.0 - 36.0 g/dL LABDE SCAN RDW (External) 13.9 11.5 - 15.5 % LABDE SCAN Platelet Count (External) 146 140 - 440 thou/cu mm LABDE SCAN Blood specimen (specimen) 11/16/2017 9:45 AM CDT Narrative BREEZE PFT - 11/17/2017 5:49 AM CDT Verified by Cruzito Marlow on 11/17/2017. Freddy Dumont MD LAB - BLOOD ORD ERALASHAE [facility] PFT LABDE SCAN * Phosphorus (11/16/2017 9:45 AM CDT) Phosphorus (External) 3.3 2.3 - 4.7 mg/dL LABDE SCAN Blood specimen (specimen) 11/16/2017 9:45 AM CDT Narrative BREEZE PFT - 11/17/2017 5:49 AM CDT Verified by Cruzito Marlow on 11/17/2017. Freddy Dumont MD LAB - BLOOD ORD ERABLES [facility] PFT LABDE SCAN * Magnesium (11/16/2017 9:45 AM CDT) Magnesium (External) 2.1 1.6 - 2.6 mg/dL LABDE SCAN Blood specimen (specimen) 11/16/2017 9:45 AM CDT Narrative BREEZE PFT - 11/17/2017 5:49 AM CDT Verified by Cruzito Marlow on 11/17/2017. Freddy Dumont MD LAB - BLOOD ORD ERABLES Performing Organization Address [facility] Co de Phone Number BREEZE PFT LABDE SCAN * (ABNORMAL) Hepatic panel (11/16/2017 9:45 AM CDT) Albumin (External) 4.3 3.2 - 4.6 g/dL LABDE SCAN Protein Total (External) 7.3 6.0 - 8.0 g/dL LABDE SCAN Bilirubin Total (External) 1.2 0.2 - 1.2 mg/dL LABDE SCAN Bilirubin Direct (External) 0.4 0.1 - 0.5 mg/dL LABDE SCAN Alk Phosphatase (External) 100 50 - 136 [place]/L LABDE SCAN ALT (External) <5(L) 8 - 45 [place]/L LABDE SCAN AST (External) 16 2 - 40 [place]/L LABDE SCAN Blood specimen (specimen) 11/16/2017 9:45 AM CDT Narrative BREEZE PFT - 11/17/2017 5:49 AM CDT Verified by Cruzito Marlow on 11/17/2017. Freddy Dumont MD LAB - BLOOD ORD ERABLES [facility] PFT LABDE SCAN * (ABNORMAL) Basic metabolic panel (11/16/2017 9:45 AM CDT) Sodium (External) 140 135 - 145 mmol/L LABDE SCAN Potassium (External) 4.5 3.5 - 5.0 mmol/L LABDE SCAN Chloride (External) 104 98 - 110 mmol/L LABDE SCAN CO2 (External) 26 21 - 31 mmol/L LABDE SCAN Anion Gap (External) 10 5 - 18 LABDE SCAN Glucose (External) 117(H) 65 - 100 mg/dL LABDE SCAN Calcium (External) 9.5 8.5 - 10.5 mg/dL LABDE SCAN Urea Nitrogen (External) 31(H) 8 - 25 mg/dL LABDE SCAN Creatinine (External) 2.07(H) 0.72 - 1.25 mg/dL LABDE SCAN BUN/Creatinine Ratio (External) 15 10 - 20 LABDE SCAN GFR Estimated (if ) (External) 39(L) >60 ml/min/1.7 3m2 LABDE SCAN GFR Estimated (External) 32(L) >60 ml/min/1.7 3m2 LABDE SCAN Blood specimen (specimen) 11/16/2017 9:45 AM CDT Narrative SAMANTHA PFT - 11/17/2017 5:49 AM CDT Verified by Cruzito Marlow on 11/17/2017. Freddy Dumont MD LAB - BLOOD ORD [...] documented as of this encounter Care Teams Sour Bleaching Pleater Relationship Specialty Start Date End Date Rubén Boyle MD PCP - General Family Practice 03/08/16 Pamela Blanco NP [address] [place] [address] Referring Physician 07/13/16 Pedro Segura MD [facility] [address] [place] [address] Nephrology 10/03/16 Freddy Craft MD 516 [facility] 2[address] [place], [place] [address] Assigned Gastroenterology Provider 02/08/20 Abdifatah Van MD 717 [facility] [address] [place], [place] [address] Assigned Nephrology Provider 07/13/20 11/07/23 Nicole Carranza NP 420 [facility] 508 [place], [place] [address] Assigned Heart and Vascular Provider 01/09/22 Andressa Ruiz PA-C 420 [facility] 803 [place], [place] [address] Physician Clerical Stock Inspector Endocrinology, Diabetes, and Metabolism 03/01/22 Ashlyn Storm, RN [facility] 711 [place], [place] [address] Registered Nurse 03/03/22 09/15/22 Rubén Gunter [facility] [address] [place] [id number] Assigned MTM Pharmacist 02/27/22 Andressa Ruiz PA-C 420 [facility] 803 [place] [address] Assigned Endocrinology Provider 03/13/22 09/07/23 Suzan Hrary MD [address] [place] [address] Nephrology 06/30/23 Yasmeen Powers MD 500 [place] [address] Nephrology 10/24/23 Yasmeen Powers MD [address] [place] [address] Assigned Nephrology Provider 11/08/23 documented as of this encounter
--- OUTSIDE RECORDS SUMMARY | 2023-12-15 10:09 | XMS_ITS | Encounter Summary ---
Author Organization [place] Address [address] [place] [address] Care Team Providers Care Ticket Attendant Name Role Phone Rubén Boyle MD Primary Care Provider [phone] Pamela Blanco MATTRESS STUFFER Unavailable [phone] Pedro Segura MD Unavailable [phone] Freddy Craft MD Unavailable Abdifatah Van MD Unavailable Nicole Carranza MATTRESS STUFFER Unavailable [phone] Andressa Ruiz-C Unavailable Ashlyn Storm RN Unavailable Rubén Gunter [facility] Unavailable Andressa Ruiz-C Unavailable Suzan Harry MD Unavailable [phone] Yasmeen Powers MD Unavailable [phone] Yasmeen Powers MD Unavailable [phone] Encounter Details Date Type Department Care Team (Latest Contact Info) Description 05/03/2018 External Order Results [facility] [address] [place] [address] History of liver transplant (H); [...] Comments TACROLIMUS BY TANDEM MASS SPECTROMETRY Routine 05/03/2018 8:43 AM MACHINE WIPER History of liver transplant (H) Status post kidney transplant Long-term use of immunosuppressant medication MAGNESIUM Routine 05/03/2018 8:43 AM MACHINE WIPER History of liver transplant (H) Status post kidney transplant Long-term use of immunosuppressant medication HEPATIC FUNCTION PANEL Routine 05/03/2018 8:43 AM MACHINE WIPER History of liver transplant (H) Status post kidney transplant Long-term use of immunosuppressant medication BASIC METABOLIC PANEL Routine 05/03/2018 8:43 AM MACHINE WIPER History of liver transplant (H) Status post kidney transplant Long-term use of immunosuppressant medication CBC WITH PLATELETS Routine 05/03/2018 8: 43 AM MACHINE WIPER History of liver transplant (H) Status post kidney transplant Long-term use of immunosuppressant medication documented in this encounter Results * Tacrolimus level (05/03/2018 8:43 AM MACHINE WIPER) Tacrolimus(FK-5 06) (External) 3.9 ng/mL LABDE SCAN Tacrolimus Last Dose (External) Not given LABDE SCAN Blood specimen (specimen) 05/03/2018 8:43 AM MACHINE WIPER Narrative SAMANTHA PFT - 05/04/2018 5:18 PM MACHINE WIPER Verified by Rhiannon Cain on 05/04/2018. Freddy Dumont MD LAB - BLOOD ORD ERALSAHAE Performing Organization Address City/[facility]/ZIP Co de Phone Number BREEZE PFT LABDE SCAN * (ABNORMAL) CBC with platelets (05/03/2018 8:43 AM MACHINE WIPER) WBC Count (External) 4.0(L) 4.5 - 11.0 thou/cu mm LABDE SCAN RBC Count (External) 3.96(L) 4.30 - 5.90 mil/cu mm LABDE SCAN Hemoglobin (External) 12.7(L) 13.5 - 17.5 g/dL LABDE SCAN Hematocrit (External) 36.2(L) 37.0 - 53.0 % LABDE SCAN MCV (External) 91 80 - 100 fL LABDE SCAN MCH (External) 32.1 26.0 - 34.0 pg LABDE SCAN MCHC (External) 35.1 32.0 - 36.0 g/dL LABDE SCAN RDW (External) 14.4 11.5 - 15.5 % LABDE SCAN Platelet Count (External) 154 140 - 440 thou/cu mm LABDE SCAN Blood specimen (specimen) 05/03/2018 8:43 AM MACHINE WIPER Narrative BREEZE PFT - 05/04/2018 5:17 AM MACHINE WIPER Verified by Cruzito Marlow on 05/04/2018. Freddy Dumont MD LAB - BLOOD ORD ERALASHAE Performing Organization Address [facility] Co de Phone Number BREEZE PFT LABDE SCAN * Magnesium (05/03/2018 8:43 AM MACHINE WIPER) Magnesium (External) 2.1 1.6 - 2.6 mg/dL LABDE SCAN Blood specimen (specimen) 05/03/2018 8:43 AM MACHINE WIPER Narrative BREEZE PFT - 05/04/2018 5:17 AM MACHINE WIPER Verified by Cruzito Marlow on 05/04/2018. Freddy Dumont MD LAB - BLOOD ORD ERALASHAE BREEZE PFT LABDE SCAN * (ABNORMAL) Hepatic panel (05/03/2018 8:43 AM MACHINE WIPER) Albumin (External) 4.1 3.2 - 4.6 g/dL LABDE SCAN Protein Total (External) 6.9 6.0 - 8.0 g/dL LABDE SCAN Bilirubin Total (External) 1.1 0.2 - 1.2 mg/dL LABDE SCAN Bilirubin Direct (External) 0.4 0.1 - 0.5 mg/dL LABDE SCAN Alk Phosphatase (External) 88 50 - 136 IU/L LABDE SCAN ALT (External) 7(L) 8 - 45 IU/L LABDE SCAN AST (External) 13 2 - 40 IU/L LABDE SCAN Blood specimen (specimen) 05/03/2018 8:43 AM MACHINE WIPER Narrative SAMANTHA PFT - 05/04/2018 5:17 AM MACHINE WIPER Verified by Cruzito Marlow on 05/04/2018. Freddy Dumont MD LAB - BLOOD ORD ERABLES SAMANTHA PFT LABDE SCAN * (ABNORMAL) Basic metabolic panel (05/03/2018 8:43 AM MACHINE WIPER) Pathologist [facility] Sodium (External) 137 135 - 145 mmol/L LABDE SCAN Potassium (External) 4.3 3.5 - 5.0 mmol/L LABDE SCAN Chloride (External) 107 98 - 110 mmol/L LABDE SCAN CO2 (External) 22 21 - 31 mmol/L LABDE SCAN Anion Gap (External) 8 5 - 18 LABDE SCAN Glucose (External) 143(H) 65 - 100 mg/dL LABDE SCAN Calcium (External) 8.1(L) 8.5 - 10.5 mg/dL LABDE SCAN Urea Nitrogen (External) 26(H) 8 - 25 mg/dL LABDE SCAN Creatinine (External) 1.74(H) 0.72 - 1.25 mg/dL LABDE SCAN BUN/Creatinine Ratio (External) 15 10 - 20 LABDE SCAN GFR Estimated (if ) (External) 48(L) >60 ml/min/1.7 3m2 LABDE SCAN GFR Estimated (External) 40(L) >60 ml/min/1.7 3m2 LABDE SCAN Blood specimen (specimen) 05/03/2018 8:43 AM MACHINE WIPER Narrative SAMANTHA PFT - 05/04/2018 5:17 AM MACHINE WIPER Verified by Cruzito Marlow on 05/04/2018. Freddy Dumont MD LAB - BLOOD ORD [...] documented as of this encounter Care Teams Ticket Attendant Relationship Specialty Start Date End Date Rubén Boyle MD PCP - General Family Practice 03/08/16 Pamela Blanco NP [facility] [address] [place], [place] [id number] Referring Physician 07/13/16 Pedro Segura MD [facility] [address] [place] [address] Nephrology 10/03/16 Freddy Craft MD [address] [facility] [address] [place] [address] Assigned Gastroenterology Provider 02/08/20 Abdifatah Van MD [address] [place] [address] Assigned Nephrology Provider 07/13/20 11/07/23 Nicole Carranza NP 420 [facility] [address] [place] [address] Assigned Heart and Vascular Provider 01/09/22 Andressa Ruiz PA-C 420 [facility] [address] [place], [place] [address] Physician Robotics Technician Endocrinology, Diabetes, and Metabolism 03/01/22 Ashlyn Storm RN [facility] [address] [place], [place] 6[address] Registered Nurse 03/03/22 09/15/22 Rubén Gunter [facility] [address] [place] [address] [id number] Assigned MTM Pharmacist 02/27/22 Andressa Ruiz PA-C [address] [place] [address] [address] [place], [place] [address] Assigned Endocrinology Provider 03/13/22 09/07/23 Suzan Harry MD [address] [place] [address] Nephrology 06/30/23 Yasmeen Powers MD [address] [place], [place] [address] Nephrology 10/24/23 Yasmeen Powers MD [address] [place] [address] Assigned Nephrology Provider 11/08/23 documented as of this encounter
--- OUTSIDE RECORDS SUMMARY | 2023-12-15 10:09 | XMS_ITS | Encounter Summary ---
Author Organization [place] Address [address] [place] [address] Care Team Providers Care Salesman/Owner Name Role Phone Rubén Boyle MD Primary Care Provider Pamela Blanco COLD MILL INSPECTOR Unavailable Pedro Segura MD Unavailable Freddy Craft MD Unavailable Abdifatah Van MD Unavailable Nicole Carranza COLD MILL INSPECTOR Unavailable [phone] Andressa Ruiz-C Unavailable Ashlyn Storm RN Unavailable Rubén Gunter [facility] Unavailable Andressa Ruiz-C Unavailable Suzan Harry MD Unavailable [phone] Yasmeen Powers MD Unavailable Yasmeen Powers MD Unavailable [phone] Encounter Details Date Type Department Care Team (Late st Contact Info) Description 03/19/2019 External Order Results [facility] [address] [place] [address] Social History Tobacco Use Types [...] Procedure Name Priority Date/Time Associated Diagnosis Comments ROUTINE UA WITH MICROSCOPIC Routine 03/19/2019 12:00 PM HORTICULTURE INSTRUCTOR TACROLIMUS BY TANDEM MASS SPECTROMETRY Routine 03/19/2019 9:30 AM HORTICULTURE INSTRUCTOR MAGNESIUM Routine 03/19/2019 9:30 AM HORTICULTURE INSTRUCTOR LIPID PROFILE Routine 03/19/2019 9:30 AM HORTICULTURE INSTRUCTOR HEPATIC FUNCTION PANEL Routine 03/19/2019 9:30 AM HORTICULTURE INSTRUCTOR BASIC METABOLIC PANEL Routine 03/19/2019 9:30 AM HORTICULTURE INSTRUCTOR CBC WITH PLATELETS Routine 03/19/2019 9: 30 AM HORTICULTURE INSTRUCTOR documented in this encounter Results * (ABNORMAL) UA with Microscopic (03/19/2019 12:00 PM HORTICULTURE INSTRUCTOR) Color Urine (External) Yellow Yellow LABDE SCAN Appearance Urine (External) Clear Clear LABDE SCAN Specific [place] Urine (External) >=1.030(A) 1.010 - 1.025 LABDE SCAN pH Urine (External) 5.5 5.5 - 8.5 LABDE SCAN Urobilinogen (External) Normal EU/dl LABDE SCAN Protein Albumin Ur (External) NEG Negative mg/dL LABDE SCAN Glucose Urine (External) 250(A) Negative mg/dL LABDE SCAN Ketones Urine (External) NEG Negative mg/dL LABDE SCAN Bilirubin Urine (External) NEG Negative LABDE SCAN Blood Urine (External) NEG Negative LABDE SCAN Nitrites Urine (External) NEG Negative LABDE SCAN Leukocyte Esterase Urine (External) NEG Negative LABDE SCAN Urine specimen (specimen) 03/19/2019 12:00 PM HORTICULTURE INSTRUCTOR Narrative BREEZE PFT - 03/20/2019 6:18 AM HORTICULTURE INSTRUCTOR Verified by Cruzito Marlow on 03/20/2019. Patient Reported LAB - URINE ORDERABL ES BREEZE PFT LABDE SCAN * Tacrolimus level (03/19/2019 9:30 AM HORTICULTURE INSTRUCTOR) Tacrolimus(FK-5 06) (External) 5.0 See scan ng/mL LABDE SCAN Tacrolimus Last Dose (External) 03/18/2019 8:00 PM LABDE SCAN Blood specimen (specimen) 03/19/2019 9:30 AM HORTICULTURE INSTRUCTOR Narrative AMNAE PFT - 03/20/2019 3:24 PM HORTICULTURE INSTRUCTOR Verified by Rhiannon Cain on 03/20/2019. Patient Reported LAB - BLOOD ORDERABL ES BREEZE PFT LABDE SCAN * (ABNORMAL) CBC with platelets (03/19/2019 9:30 AM HORTICULTURE INSTRUCTOR) WBC Count (External) 2.7(L) 4.5 - 11.0 thou/cu mm LABDE SCAN RBC Count (External) 3.93(L) 4.30 - 5.90 mil/cu mm LABDE SCAN Hemoglobin (External) 12.8(L) 13.5 - 17.5 g/dL LABDE SCAN Hematocrit (External) 37.1 37.0 - 53.0 % LABDE SCAN MCV (External) 94 80 - 100 fl LABDE SCAN MCH (External) 32.6 26.0 - 34.0 pg LABDE SCAN MCHC (External) 34.5 32.0 - 36.0 g/dL LABDE SCAN RDW (External) 14.8 11.5 - 15.5 % LABDE SCAN Platelet Count (External) 139(L) 140 - 440 thou/cu mm LABDE SCAN Blood specimen (specimen) 03/19/2019 9:30 AM HORTICULTURE INSTRUCTOR Narrative AMNAE PFT - 03/19/2019 1:12 PM HORTICULTURE INSTRUCTOR Verified by Pedrito Stallworth on 03/19/2019. Patient Reported LAB - BLOOD ORDERABL ES Performing Organization Address [facility] Co de Phone Number BREEZE PFT LABDE SCAN * Magnesium (03/19/2019 9:30 AM HORTICULTURE INSTRUCTOR) Magnesium (External) 1.8 1.6 - 2.6 mg/dL LABDE SCAN Blood specimen (specimen) 03/19/2019 9:30 AM HORTICULTURE INSTRUCTOR Subhash BREEZE PFT - 03/19/2019 1:12 PM HORTICULTURE INSTRUCTOR Verified by Pedrito Stallworth on 03/19/2019. Patient Reported LAB - BLOOD ORDERABL ES Performing Organization Address [facility] de Phone Number BREEZE PFT LABDE SCAN * (ABNORMAL) Lipid Profile (03/19/2019 9:30 AM HORTICULTURE INSTRUCTOR) Cholesterol (External) 179 100 - 199 mg/dL LABDE SCAN Triglycerides (External) 195(H) <150 mg/dL LABDE SCAN HDL Cholesterol (External) 43 >40 mg/dL LABDE SCAN LDL-Cholesterol (External) 97 <=130 mg/dL LABDE SCAN Blood specimen (specimen) 03/19/2019 9:30 AM HORTICULTURE INSTRUCTOR Subhash SINGH PFT - 03/19/2019 1:12 PM HORTICULTURE INSTRUCTOR Verified by Pedrito Stallworth on 03/19/2019. Patient Reported LAB - BLOOD ORDERABL ES Performing Organization Address [facility] Co de Phone Number BREEZE PFT LABDE SCAN * Hepatic panel (03/19/2019 9:30 AM HORTICULTURE INSTRUCTOR) Albumin (External) 4.2 3.2 - 4.6 g/dL LABDE SCAN Protein Total (External) 7.0 6.0 - 8.0 g/dL LABDE SCAN Bilirubin Total (External) 1.2 0.2 - 1.2 mg/dL LABDE SCAN Bilirubin Direct (External) 0.4 0.1 - 0.5 mg/dL LABDE SCAN Alk Phosphatase (External) 78 50 - 136 IU/L LABDE SCAN ALT (External) 11 8 - 45 IU/L LABDE SCAN AST (External) 14 2 - 40 IU/L LABDE SCAN Blood specimen (specimen) 03/19/2019 9:30 AM HORTICULTURE INSTRUCTOR Narrative BREEZE PFT - 03/19/2019 1:12 PM HORTICULTURE INSTRUCTOR Verified by Pedrito Stallworth on 03/19/2019. Patient Reported LAB - BLOOD ORDERABL ES BREEZE PFT LABDE SCAN * (ABNORMAL) Basic metabolic panel (03/19/2019 9:30 AM HORTICULTURE INSTRUCTOR) Sodium (External) 137 135 - 145 mmol/L LABDE SCAN Potassium (External) 4.2 3.5 - 5.0 mmol/L LABDE SCAN Chloride (External) 104 98 - 110 mmol/L LABDE SCAN CO2 (External) 25 21 - 31 mmol/L LABDE SCAN Anion Gap (External) 8 5 - 18 LABDE SCAN Glucose (External) 273(H) 65 - 100 mg/dL LABDE SCAN Calcium (External) 9.8 8.5 - 10.5 mg/dL LABDE SCAN Urea Nitrogen (External) 19 8 - 25 mg/dL LABDE SCAN Creatinine (External) 1.87(H) 0.72 - 1.25 mg/dL LABDE SCAN BUN/Creatinine Ratio (External) 10 10 - 20 LABDE SCAN GFR Estimated (if ) (External) 44(L) >60 mL/min/1.7 3m2 LABDE SCAN GFR Estimated (External) 36(L) >60 mL/min/1.7 3m2 LABDE SCAN Blood specimen (specimen) 03/19/2019 9:30 AM HORTICULTURE INSTRUCTOR Narrative AMNAE PFT - 03/19/2019 1:10 PM HORTICULTURE INSTRUCTOR Verified by Pedrito Stallworth on 03/19/2019. 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 06/21/2016 06/21/2016 documented as of this encounter Care Teams Salesman/Owner Relationship Specialty Start Date End Date Rubén Boyle MD PCP - General Family Practice 03/08/16 Pamela Blanco, COLD MILL INSPECTOR [facility] [address] [place] [address] Referring Physician 07/13/16 Pedro Segura MD [facility] [address] [place] [address] Nephrology 10/03/16 Freddy Craft MD [address] [facility] [place], [place] [address] Assigned Gastroenterology Provider 02/08/20 Abdifatah Van MD [address] [facility] [address] [place] [address] Assigned Nephrology Provider 07/13/20 11/07/23 Nicole Carranza NP 420 [facility] [address] [place], [place] [address] Assigned Heart and Vascular Provider 01/09/22 Andressa Ruiz PA-C 420 [facility] [address] [place], [place] [address] Physician Blood Bank Order Control Clerk Endocrinology, Diabetes, and Metabolism 03/01/22 Ashlyn Storm, RN [facility] 7[address] [place] [address] Registered Nurse 03/03/22 09/15/22 Rubén Gunter [facility] [address] [place] [address] Assigned MTM Pharmacist 02/27/22 Andressa Ruiz PA-C 420 [facility] [address] [place] [address] Assigned Endocrinology Provider 03/13/22 09/07/23 Suzan Harry MD [address] [place] [address] Nephrology 06/30/23 Yasmeen Powers MD 500 [place] [address] Nephrology 10/24/23 Yasmeen Powers MD [address] [place] [address] Assigned Nephrology Provider 11/08/23 documented as of this encounter
--- OUTSIDE RECORDS SUMMARY | 2023-12-15 10:09 | XMS_ITS | Encounter Summary ---
Author Organization [place] Address [address] [place] [address] Care Team Providers Care Statistical Typist Name Role Phone Rubén Boyle MD Primary Care Provider Pamela Blanco BONE CHAR KILN OPERATOR Unavailable [phone] Pedro Segura MD Unavailable Freddy Craft MD Unavailable Abdifatah Van MD Unavailable Nicole Carranza BONE CHAR KILN OPERATOR Unavailable [phone] Andressa Ruiz-C Unavailable Ashlyn Storm RN Unavailable [phone] Rubén Gunter [facility] Unavailable Andressa Ruiz-C Unavailable Suzan Harry MD Unavailable [phone] Yasmeen Powers MD Unavailable [phone] Yasmeen Powers MD Unavailable [phone] Encounter Details Date Type Department Care Team (Late st Contact Info) Description 12/07/2018 External Order Results [facility] [address] [place] [address] Social History Tobacco Use Types [...] Comments TACROLIMUS BY TANDEM MASS SPECTROMETRY Routine 12/07/2018 3:05 PM CDT MAGNESIUM Routine 12/07/2018 3:05 PM CDT HEPATIC FUNCTION PANEL Routine 12/07/2018 3:05 PM CDT BASIC METABOLIC PANEL Routine 12/07/2018 3:05 PM CDT CBC WITH PLATELETS Routine 12/07/2018 3: 05 PM CDT documented in this encounter Results * Tacrolimus level (12/07/2018 3:05 PM CDT) Tacrolimus(FK-5 06) (External) 6.4 ng/mL LABDE SCAN Tacrolimus Last Dose (External) 12/07/18 0800 LABDE SCAN Blood specimen (specimen) 12/07/2018 3:05 PM CDT Narrative SAMANTHA PFT - 12/08/2018 12:26 PM CDT Verified by Melissa Otto on 12/08/2018. Patient Reported LAB - BLOOD ORDERABL ES BREEZKayli PFT LABDE SCAN * (ABNORMAL) CBC with platelets (12/07/2018 3:05 PM CDT) WBC Count (External) 2.6(L) 4.5 - 11.0 thou/cu mm LABDE SCAN RBC Count (External) 3.72(L) 4.30 - 5.90 mil/cu mm LABDE SCAN Hemoglobin (External) 12.3(L) 13.5 - 17.5 g/dL LABDE SCAN Hematocrit (External) 35.0(L) 37.0 - 53.0 % LABDE SCAN MCV (External) 94 80 - 100 fL LABDE SCAN MCH (External) 33.1 26.0 - 34.0 pg LABDE SCAN MCHC (External) 35.1 32.0 - 36.0 g/dL LABDE SCAN RDW (External) 14.8 11.5 - 15.5 % LABDE SCAN Platelet Count (External) 138(L) 140 - 440 thou/cu mm LABDE SCAN Blood specimen (specimen) 12/07/2018 3:05 PM CDT Narrative BREEZE PFT - 12/08/2018 9:38 AM CDT Verified by Melissa Otto on 12/08/2018. Patient Reported LAB - BLOOD ORDERABL ES Performing Organization Address City/[facility]/ZIP Co de Phone Number BREEZE PFT LABDE SCAN * Magnesium (12/07/2018 3:05 PM CDT) Magnesium (External) 1.7 1.6 - 2.6 mg/dL LABDE SCAN Blood specimen (specimen) 12/07/2018 3:05 PM CDT Narrative BREEZE PFT - 12/08/2018 9:38 AM CDT Verified by Melissa Otto on 12/08/2018. Patient Reported LAB - BLOOD ORDERABL ES BREEZE PFT LABDE SCAN * (ABNORMAL) Hepatic panel (12/07/2018 3:05 PM CDT) Albumin (External) 4.2 3.2 - 4.6 g/dL LABDE SCAN Protein Total (External) 7.1 6.0 - 8.0 g/dL LABDE SCAN Bilirubin Total (External) 1.3(H) 0.2 - 1.2 mg/dL LABDE SCAN Bilirubin Direct (External) 0.4 0.1 - 0.5 mg/dL LABDE SCAN Alk Phosphatase (External) 72 50 - 136 IU/L LABDE SCAN ALT (External) 10 8 - 45 IU/L LABDE SCAN AST (External) 17 2 - 40 IU/L LABDE SCAN Blood specimen (specimen) 12/07/2018 3:05 PM CDT Narrative AMNAE PFT - 12/08/2018 9:38 AM CDT Verified by Melissa Otto on 12/08/2018. Patient Reported LAB - BLOOD ORDERABL ES ERICKEZE PFT LABDE SCAN * (ABNORMAL) Basic metabolic panel (12/07/2018 3:05 PM CDT) Sodium (External) 137 135 - 145 mmol/L LABDE SCAN Potassium (External) 4.7 3.5 - 5.0 mmol/L LABDE SCAN Chloride (External) 105 98 - 110 mmol/L LABDE SCAN CO2 (External) 24 21 - 31 mmol/L LABDE SCAN Anion Gap (External) 8 5 - 18 LABDE SCAN Glucose (External) 200(H) 65 - 100 mg/dL LABDE SCAN Calcium (External) 9.3 8.5 - 10.5 mg/dL LABDE SCAN Urea Nitrogen (External) 23 8 - 25 mg/dL LABDE SCAN Creatinine (External) 1.60(H) 0.72 - 1.25 mg/dL LABDE SCAN BUN/Creatinine Ratio (External) 14 10 - 20 LABDE SCAN GFR Estimated (if ) (External) 53(L) >60 ml/min/1.7 3m2 LABDE SCAN GFR Estimated (External) 43(L) >60 ml/min/1.7 3m2 LABDE SCAN Blood specimen (specimen) 12/07/2018 3:05 PM CDT Narrative AMNAE PFT - 12/08/2018 9:38 AM CDT Verified by Melissa Otto on 12/08/2018. 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, 07/10/16 rectal swab 06/21/2016 06/21/2016 documented as of this encounter Care Teams Statistical Typist Relationship Specialty Start Date End Date Rubén Boyle MD PCP - General Family Practice 03/08/16 Pamela Blanco, BONE CHAR KILN OPERATOR [facility] [address] [place] [address] Referring Physician 07/13/16 Pedro Segura MD [facility] [address] [place] [address] Nephrology 10/03/16 Freddy Craft MD [address] [facility] [place], [place] [address] Assigned Gastroenterology Provider 02/08/20 Abdifatah Van MD 717 [facility] [address] [place], [place] [address] Assigned Nephrology Provider 07/13/20 11/07/23 Nicole Carranza, [place] 420 [facility] 508 [place], [place] [address] Assigned Heart and Vascular Provider 01/09/22 Andressa Ruiz PA-C 420 [facility] 803 [place], [place] [address] Physician Sec Accountant Endocrinology, Diabetes, and Metabolism 03/01/22 Ashlyn Storm, RN [facility] [address] [place] [address] Registered Nurse 03/03/22 09/15/22 Rubén Gunter [facility] [address] [place] [address] Assigned MTM Pharmacist 02/27/22 Andressa Ruiz PA-C 420 [facility] 803 [place] [address] Assigned Endocrinology Provider 03/13/22 09/07/23 Suzan Harry MD 420 [place] [address] Nephrology 06/30/23 Yasmeen Powers MD 500 [place] [address] Nephrology 10/24/23 Yasmeen Powers MD 500 [place] [address] Assigned Nephrology Provider 11/08/23 documented as of this encounter
--- OUTSIDE RECORDS SUMMARY | 2023-12-15 10:09 | XMS_ITS | Encounter Summary ---
Author Organization [place] Address [address] [place] [address] Care Team Providers Care Computer Numerical Control Machinist Name Role Phone Rubén Boyle MD Primary Care Provider Pamela Blanco CARE TRANSPORT NURSE Unavailable Pedro Segura MD Unavailable Freddy Craft MD Unavailable Abdifatah Van MD Unavailable Nicole Carranza CARE TRANSPORT NURSE Unavailable [phone] Andressa Ruiz-C Unavailable Ashlyn Storm RN Unavailable Rubén Gunter [facility] Unavailable Andressa Ruiz-C Unavailable [phone] Suzan Harry MD Unavailable [phone] Yasmeen Powers MD Unavailable [phone] Yasmeen Powers MD Unavailable [phone] Encounter Details Date Type Department Care Team (Latest Contact Info) Description 08/25/2018 External Order Results [facility] [address] [place] [address] History of liver transplant (H); [...] Comments TACROLIMUS BY TANDEM MASS SPECTROMETRY Routine 08/25/2018 9:52 AM CDT History of liver transplant (H) Status post kidney transplant Long-term use of immunosuppressant medication MAGNESIUM Routine 08/25/2018 9:52 AM CDT History of liver transplant (H) Status post kidney transplant Long-term use of immunosuppressant medication HEPATIC FUNCTION PANEL Routine 08/25/2018 9:52 AM CDT History of liver transplant (H) Status post kidney transplant Long-term use of immunosuppressant medication DIFFERENTIAL Routine 08/25/2018 9:52 AM CDT BASIC METABOLIC PANEL Routine 08/25/2018 9:52 AM CDT History of liver transplant (H) Status post kidney transplant Long-term use of immunosuppressant medication CBC WITH PLATELETS Routine 08/25/2018 9: 52 AM CDT History of liver transplant (H) Status post kidney transplant Long-term use of immunosuppressant medication documented in this encounter Results * Tacrolimus level (08/25/2018 9:52 AM CDT) Tacrolimus(FK-5 06) (External) 4.4 ng/mL LABDE SCAN Tacrolimus Last Dose (External) 08/24/181999 LABDE SCAN Blood specimen (specimen) 08/25/2018 9:52 AM CDT Narrative SAMANTHA MARTINEZT - 08/28/2018 11:00 AM CDT Verified by Melissa Otto on 08/28/2018. Freddy Dumont MD LAB - BLOOD ORD ERABLES Performing Organization Address [facility]/ZIP Co de Phone Number ERICKEZKayli PFT LABDE SCAN * (ABNORMAL) WBC Differential (08/25/2018 9:52 AM CDT) % Neutrophils (External) 69.3 % LABDE SCAN % Lymphocytes (External) 17.1 % LABDE SCAN % Monocytes (External) 9.8 % LABDE SCAN % Eosinophils (External) 3.5 % LABDE SCAN % Basophils (External) 0.3 % LABDE SCAN Absolute Neutrophils (External) 2.0 1.7 - 7.0 thou/cu mm LABDE SCAN Absolute Lymphocytes (External) 0.5(L) 0.9 - 2.9 thou/cu mm LABDE SCAN Absolute Monocytes (External) 0.3 <0.9 thou/cu mm LABDE SCAN Absolute Eosinophils (External) 0.1 <0.5 thou/cu mm LABDE SCAN Absolute Basophils (External) 0.0 <0.3 thou/cu mm LABDE SCAN Blood specimen (specimen) 08/25/2018 9:52 AM CDT Subhash SINGH PFT - 08/25/2018 5:16 PM CDT Verified by Melissa Otto on 08/25/2018. Patient Reported LAB - BLOOD ORDERABL ES Performing Organization Address [facility] Co de Phone Number AMNAE PFT LABDE SCAN * (ABNORMAL) Basic metabolic panel (08/25/2018 9:52 AM CDT) Sodium (External) 138 135 - [...] 10.5 mg/dL LABDE SCAN Urea Nitrogen (External) 17 8 - 25 mg/dL LABDE SCAN Creatinine (External) 1.81(H) 0.72 - 1.25 mg/dL LABDE SCAN BUN/Creatinine Ratio (External) 9(L) 10 - 20 LABDE SCAN GFR Estimated (if ) (External) 46(L) >60 mL/min/1.7 3m2 LABDE SCAN GFR Estimated (External) 38(L) >60 mL/min/1.7 3m2 LABDE SCAN Blood specimen (specimen) 08/25/2018 9:52 AM CDT Narrative SAMANTHA PFT - 08/25/2018 5:16 PM CDT Verified by Melissa Otto on 08/25/2018. Freddy Dumont MD LAB - BLOOD ORD ERABLES SAMANTHA PFT LABDE SCAN * (ABNORMAL) CBC with platelets (08/25/2018 9:52 AM CDT) WBC Count (External) 2.9(L) 4.5 - 11.0 thou/cu mm LABDE SCAN RBC Count (External) 3.92(L) 4.30 - 5.90 mil/cu mm LABDE SCAN Hemoglobin (External) 12.3(L) 13.5 - 17.5 g/dL LABDE SCAN Hematocrit (External) 36.3(L) 37.0 - 53.0 % LABDE SCAN MCV (External) 93 80 - 100 fL LABDE SCAN MCH (External) 31.4 26.0 - 34.0 pg LABDE SCAN MCHC (External) 33.9 32.0 - 36.0 g/dL LABDE SCAN RDW (External) 15.0 11.5 - 15.5 % LABDE SCAN Platelet Count (External) 160 140 - 440 thou/cu mm LABDE SCAN Blood specimen (specimen) 08/25/2018 9:52 AM CDT Narrative SAMANTHA PFT - 08/25/2018 5:16 PM CDT Verified by Melissa Otto on 08/25/2018. Freddy Dumont MD LAB - BLOOD ORD ERABLES Performing Organization Address [facility]/ZIP Co de Phone Number BREEZE PFT LABDE SCAN * Hepatic panel (08/25/2018 9:52 AM CDT) Albumin (External) 4.2 3.2 - 4.6 g/dL LABDE SCAN Protein Total (External) 7.1 6.0 - 8.0 g/dL LABDE SCAN Bilirubin Total (External) 0.8 0.2 - 1.2 mg/dL LABDE SCAN Bilirubin Direct (External) 0.4 0.1 - 0.5 mg/dL LABDE SCAN Alk Phosphatase (External) 76 50 - 136 IU/L LABDE SCAN ALT (External) 8 8 - 45 IU/L LABDE SCAN AST (External) 16 2 - 40 IU/L LABDE SCAN Blood specimen (specimen) 08/25/2018 9:52 AM CDT Narrative BREEZE PFT - 08/25/2018 5:16 PM CDT Verified by Melissa Otto on 08/25/2018. Freddy Dumont MD LAB - BLOOD ORD ERABLES Performing Organization Address [facility] Co de Phone Number BREEZE PFT LABDE SCAN * Magnesium (08/25/2018 9:52 AM CDT) Magnesium (External) 1.9 1.6 - 2.6 mg/dL LABDE SCAN Blood specimen (specimen) 08/25/2018 9:52 AM CDT Narrative BREEZE PFT - 08/25/2018 5:16 PM CDT Verified by Melissa Otto on 08/25/2018. Freddy Dumont MD LAB - BLOOD ORD ERABLES Performing Organization Address City/[facility] Co de Phone Number BREEZE PFT LABDE SCAN documented in this [...] documented as of this encounter Care Teams Computer Numerical Control Machinist Relationship Specialty Start Date End Date Rubén Boyle MD PCP - General Family Practice 03/08/16 Pamela Blanco CARE TRANSPORT NURSE [facility] [address] [place] [address] Referring Physician 07/13/16 Pedro Segura MD [facility] [address] [place] [address] Nephrology 10/03/16 Freddy Craft MD [facility] [place], [place] [address] Assigned Gastroenterology Provider 02/08/20 Abdifatah Van MD 717 [facility] [address] [place] [address] Assigned Nephrology Provider 07/13/20 11/07/23 Nicole Carranza NP 420 [facility] [address] [place], [place] [address] Assigned Heart and Vascular Provider 01/09/22 Andressa Ruiz PA-C 420 [facility] [address]03 [place], [place] [address] Physician Cow Trimmer Endocrinology, Diabetes, and Metabolism 03/01/22 Ashlyn Storm RN [facility] [address] [place] [address] Registered Nurse 03/03/22 09/15/22 Rubén Gunter [facility] [address] [place] [address] Assigned MTM Pharmacist 02/27/22 Andressa Ruiz PA-C 420 [facility] [address]03 [place] [address] Assigned Endocrinology Provider 03/13/22 09/07/23 Suzan Harry MD [address] [place] [address] Nephrology 06/30/23 Yasmeen Powers MD [address] [place] [address] Nephrology 10/24/23 Yasmeen Powers MD [address] [place] [address] Assigned Nephrology Provider 11/08/23 documented as of this encounter
--- OUTSIDE RECORDS SUMMARY | 2023-12-15 10:10 | XMS_ITS | Encounter Summary ---
Author Organization [place] Address [address] [place] [address] Care Team Providers Care Waste Water Plant Operator Name Role Phone Rubén Boyle MD Primary Care Provider Pamela Blanco PROGRESS DEVELOPER Unavailable Pedro Segura MD Unavailable Freddy Craft MD Unavailable Abdifatah Van MD Unavailable Nicole Carranza PROGRESS DEVELOPER Unavailable [phone] Andressa Ruiz-C Unavailable Ashlyn Storm RN Unavailable Rubén Gunter [facility] Unavailable Andressa Ruiz-C Unavailable Suzan Harry MD Unavailable [phone] Yasmeen Powers MD Unavailable Yasmeen Powers MD Unavailable [phone] Encounter Details Date Type Department Care Team (Latest Contact Info) Description 05/04/2017 External Order Results [facility] [address] [place] [address] Long-term use of immunosuppressant medication; 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); 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 transplant; 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 Social History Tobacco Use Types Packs/Day Years [...] Comments TACROLIMUS BY TANDEM MASS SPECTROMETRY Routine 05/03/2017 9:10 AM JAVA TECH LEAD 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) 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 transplant halfway use of drug PHOSPHORUS Routine 05/03/2017 9:10 AM JAVA TECH LEAD Long-term use of immunosuppressant medication 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) MAGNESIUM Routine 05/03/2017 9:10 AM JAVA TECH LEAD Long-term use of immunosuppressant medication 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) HEPATIC FUNCTION PANEL Routine 05/03/2017 9:10 AM JAVA TECH LEAD Long-term use of immunosuppressant medication 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) DIFFERENTIAL Routine 05/03/2017 9:10 AM JAVA TECH LEAD BASIC METABOLIC PANEL Routine 05/03/2017 9:10 AM JAVA TECH LEAD Long-term use of immunosuppressant medication 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) CBC WITH PLATELETS Routine 05/03/2017 9: 10 AM JAVA TECH LEAD Long-term use of immunosuppressant medication 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) documented in this encounter Results * Tacrolimus level (05/03/2017 9:10 AM JAVA TECH LEAD) Tacrolimus(FK-5 06) (External) 8.2 ng/mL LABDE SCAN Tacrolimus Last Dose (External) 05/02/2017 at 2000 LABDE SCAN Blood specimen (specimen) 05/03/2017 9:10 AM JAVA TECH LEAD Narrative BREEZE PFT - 05/05/2017 2:00 PM JAVA TECH LEAD Verified by Cruzito Marlow on 05/05/2017. Freddy Dumont MD LAB - BLOOD ORD ERABLES AMNAE PFT LABDE SCAN * (ABNORMAL) WBC Differential (05/03/2017 9:10 AM JAVA TECH LEAD) Method (External) Manual Diff LABDE SCAN % Neutrophils (External) 51.0 42.0 - 72.0 % LABDE SCAN % Lymphocytes (External) 31.0 20.0 - 44.0 % LABDE SCAN % Monocytes (External) 14.0(H) <12.0 % LABDE SCAN % Eosinophils (External) 4.0 <8.0 % LABDE SCAN % Basophils (External) 0.0 <3.0 % LABDE SCAN Absolute Neutrophils (External) 1.0(L) 1.7 - 7.0 thou/cu mm LABDE SCAN Absolute Lymphocytes (External) 0.6(L) 0.9 - 2.9 thou/cu mm LABDE SCAN Absolute Monocytes (External) 0.3 <0.9 thou/cu mm LABDE SCAN Absolute Eosinophils (External) 0.1 <0.5 thou/cu mm LABDE SCAN Absolute Basophils (External) 0.0 <0.3 thou/cu mm LABDE SCAN Blood specimen (specimen) 05/03/2017 9:10 AM JAVA TECH LEAD Narrative SAMANTHA PFT - 05/04/2017 7:58 AM JAVA TECH LEAD Verified by Cruzito Marlow on 05/04/2017. Patient Reported LAB - BLOOD ORDERABL ES BREEZE PFT LABDE SCAN * (ABNORMAL) CBC with platelets (05/03/2017 9:10 AM JAVA TECH LEAD) WBC Count (External) 1.9(LL) 4.5 - 11.0 thou/cu mm LABDE SCAN RBC Count (External) 4.13(L) 4.30 - 5.90 mil/cu mm LABDE SCAN Hemoglobin (External) 11.8(L) 13.5 - 17.5 g/dL LABDE SCAN Hematocrit (External) 35.8(L) 37.0 - 53.0 % LABDE SCAN MCV (External) 87 80 - 100 fL LABDE SCAN MCH (External) 28.6 26.0 - 34.0 pg LABDE SCAN MCHC (External) 33.0 32.0 - 36.0 g/dL LABDE SCAN RDW (External) 15.0 11.5 - 15.5 % LABDE SCAN Platelet Count (External) 140 140 - 440 thou/cu mm LABDE SCAN Blood specimen (specimen) 05/03/2017 9:10 AM JAVA TECH LEAD Narrative BREEZE PFT - 05/04/2017 7:58 AM JAVA TECH LEAD Verified by Cruzito Marlow on 05/04/2017. Aime Vu MD LAB - BLOOD ORDERA BLES Performing Organization Address City/[facility]/ZIP Co de Phone Number BREEZE PFT LABDE SCAN * Phosphorus (05/03/2017 9:10 AM JAVA TECH LEAD) Phosphorus (External) 3.9 2.3 - 4.7 mg/dL LABDE SCAN Blood specimen (specimen) 05/03/2017 9:10 AM JAVA TECH LEAD Narrative BREEZE PFT - 05/04/2017 7:58 AM JAVA TECH LEAD Verified by Cruzito Marlow on 05/04/2017. Aime Vu MD LAB - BLOOD ORDERA BLES BREEZE PFT LABDE SCAN * Magnesium (05/03/2017 9:10 AM JAVA TECH LEAD) Magnesium (External) 1.8 1.6 - 2.6 mg/dL LABDE SCAN Blood specimen (specimen) 05/03/2017 9:10 AM JAVA TECH LEAD Narrative BREEZE PFT - 05/04/2017 7:58 AM JAVA TECH LEAD Verified by Cruzito Marlow on 05/04/2017. Aime Vu MD LAB - BLOOD ORDERA BLES Performing Organization Address [facility] de Phone Number SAMANTHA PFT LABDE SCAN * (ABNORMAL) Hepatic panel (05/03/2017 9:10 AM JAVA TECH LEAD) Albumin (External) 3.7 3.2 - 4.6 g/dL LABDE SCAN Protein Total (External) 5.7(L) 6.0 - 8.0 g/dL LABDE SCAN Bilirubin Total (External) 0.8 0.2 - 1.2 mg/dL LABDE SCAN Bilirubin Direct (External) 0.3 0.1 - 0.5 mg/dL LABDE SCAN Alk Phosphatase (External) 111 50 - 136 IU/L LABDE SCAN ALT (External) 13 8 - 45 IU/L LABDE SCAN AST (External) 20 2 - 40 IU/L LABDE SCAN Blood specimen (specimen) 05/03/2017 9:10 AM JAVA TECH LEAD Narrative SAMANTHA PFT - 05/04/2017 7:58 AM JAVA TECH LEAD Verified by Cruzito Marlow on 05/04/2017. Aime Vu MD LAB - BLOOD ORDERA BLES Performing Organization Address [facility] de Phone Number SAMANTHA PFT LABDE SCAN * (ABNORMAL) Basic metabolic panel (05/03/2017 9:10 AM JAVA TECH LEAD) Sodium (External) 138 135 - 145 mmol/L LABDE SCAN Potassium (External) 5.5(H) 3.5 - 5.0 mmol/L LABDE SCAN Chloride (External) 109 98 - 110 mmol/L LABDE SCAN CO2 (External) 25 21 - 31 mmol/L LABDE SCAN Anion Gap (External) 4(L) 5 - 18 LABDE SCAN Glucose (External) 130(H) 65 - 100 mg/dL LABDE SCAN Calcium (External) 8.9 8.5 - 10.5 mg/dL LABDE SCAN Urea Nitrogen (External) 23 8 - 25 mg/dL LABDE SCAN Creatinine (External) 1.71(H) 0.72 - 1.25 mg/dL LABDE SCAN BUN/Creatinine Ratio (External) 13 10 - 20 LABDE SCAN GFR Estimated (if ) (External) 49(L) >60 ml/min/1.7 3m2 LABDE SCAN GFR Estimated (External) 41(L) >60 ml/min/1.7 3m2 LABDE SCAN Blood specimen (specimen) 05/03/2017 9:10 AM JAVA TECH LEAD Narrative SAMANTHA PFT - 05/04/2017 7:58 AM JAVA TECH LEAD Verified by Cruzito Marlow on 05/04/2017. 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/16 urine, 07/10/16 rectal swab 06/21/2016 06/21/2016 documented as of this encounter Care Teams Waste Water Plant Operator Relationship Specialty Start Date End Date Rubén Boyle MD PCP - General Family Practice 03/08/16 Pamela Blanco NP [facility] [address] [place], [place] [address] Referring Physician 07/13/16 Pedro Segura MD [facility] [address] [place], [place] [address] Nephrology 10/03/16 Freddy Craft MD [address] [place] [address]88355 Assigned Gastroenterology Provider 02/08/20 Abdifatah Van MD 717 [facility] [address] [place] [address] Assigned Nephrology Provider 07/13/20 11/07/23 Nicole Carranza NP 420 [facility] [address] [place] [address] Assigned Heart and Vascular Provider 01/09/22 Andressa Ruiz PA-C 420 [facility] 803 [place], [place] [address] Physician Grain Weigher Endocrinology, Diabetes, and Metabolism 03/01/22 Ashlyn Storm RN [facility] [address] [place], [place] [address] Registered Nurse 03/03/22 09/15/22 Rubén Gunter [facility] [address] [place] [address] 489565 Assigned MTM Pharmacist 02/27/22 Andressa Ruiz PA-C 420 [facility] [address] [place] [address] Assigned Endocrinology Provider 03/13/22 09/07/23 Suzan Harry MD [address] [place] [address] Nephrology 06/30/23 Yasmeen Powers MD [address] [place] [address] Nephrology 10/24/23 Yasmeen Powers MD 500 [place] [address] Assigned Nephrology Provider 11/08/23 documented as of this encounter
--- OUTSIDE RECORDS SUMMARY | 2023-12-15 10:10 | XMS_ITS | Encounter Summary ---
Author Organization [place] Address [address] [place] [address] Care Team Providers Care Bottom Turning Lathe Tender Name Role Phone Rubén Boyle MD Primary Care Provider [phone] Pamela Blanco GENERAL MAINTENANCE HELPER Unavailable Pedro Segura MD Unavailable Freddy Craft MD Unavailable Abdifatah Van MD Unavailable Nicole Carranza GENERAL MAINTENANCE HELPER Unavailable [phone] Andressa Ruiz-C Unavailable [phone] Ashlyn Storm RN Unavailable [phone] Rubén Gunter [facility] Unavailable Andressa Ruiz-C Unavailable Suzan Harry MD Unavailable [phone] Yasmeen Powers MD Unavailable [phone] Yasmeen Powers MD Unavailable [phone] Encounter Details Date Type Department Care Team (Latest Contact Info) Description 05/19/2017 External Order Results [facility] [address] [place] [address] Long-term use of immunosuppressant medication; 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) Social History [...] Comments TACROLIMUS BY TANDEM MASS SPECTROMETRY Routine 05/16/2017 8:57 AM NETWORKING SPECIALIST Long-term use of immunosuppressant medication 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) PHOSPHORUS Routine 05/16/2017 8:57 AM NETWORKING SPECIALIST Long-term use of immunosuppressant medication 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) MAGNESIUM Routine 05/16/2017 8:57 AM NETWORKING SPECIALIST Long-term use of immunosuppressant medication 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) HEPATIC FUNCTION PANEL Routine 05/16/2017 8:57 AM NETWORKING SPECIALIST Long-term use of immunosuppressant medication 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) BASIC METABOLIC PANEL Routine 05/16/2017 8:57 AM NETWORKING SPECIALIST Long-term use of immunosuppressant medication 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) CBC WITH PLATELETS Routine 05/16/2017 8: 57 AM NETWORKING SPECIALIST Long-term use of immunosuppressant medication 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) documented in this encounter Results * Tacrolimus level (05/16/2017 8:57 AM NETWORKING SPECIALIST) Tacrolimus(FK-5 06) (External) 7.3 5 - 8 ng/mL LABDE SCAN Tacrolimus Last Dose (External) Not given LABDE SCAN Blood specimen (specimen) 05/16/2017 8:57 AM NETWORKING SPECIALIST Narrative SAMANTHA PFT - 05/19/2017 8:13 PM NETWORKING SPECIALIST Verified by Myrna Monreal on 05/19/2017. Varvara A Mirella MD LAB - BLOOD ORDERA BLES Performing Organization Address City/[facility]/ZIP Co de Phone Number BREEZE PFT LABDE SCAN * Hepatic panel (05/16/2017 8:57 AM NETWORKING SPECIALIST) Albumin (External) 3.7 3.2 - 4.6 g/dL LABDE SCAN Protein Total (External) 6.0 6.0 - 8.0 g/dL LABDE SCAN Bilirubin Total (External) 0.9 0.2 - 1.2 mg/dL LABDE SCAN Bilirubin Direct (External) 0.3 0.1 - 0.5 mg/dL LABDE SCAN Alk Phosphatase (External) 103 50 - 136 IU/L LABDE SCAN ALT (External) 13 8 - 45 IU/L LABDE SCAN AST (External) 24 2 - 40 IU/L LABDE SCAN Blood specimen (specimen) 05/16/2017 8:57 AM NETWORKING SPECIALIST Narrative BREEZE PFT - 05/19/2017 4:56 AM NETWORKING SPECIALIST Verified by Rhiannon Cain on 05/19/2017. Aime Vu MD LAB - BLOOD ORDERA BLES Performing Organization Address [facility] Co de Phone Number BREEZE PFT LABDE SCAN * Magnesium (05/16/2017 8:57 AM NETWORKING SPECIALIST) Magnesium (External) 1.7 1.6 - 2.6 mg/dL LABDE SCAN Blood specimen (specimen) 05/16/2017 8:57 AM NETWORKING SPECIALIST Narrative BREEZE PFT - 05/19/2017 4:56 AM NETWORKING SPECIALIST Verified by Rhiannon Cain on 05/19/2017. Aime Vu MD LAB - BLOOD ORDERA BLES Performing Organization Address City/[facility]/ZIP Co de Phone Number BREEZE PFT LABDE SCAN * Phosphorus (05/16/2017 8:57 AM NETWORKING SPECIALIST) Phosphorus (External) 3.4 2.3 - 4.7 mg/dL LABDE SCAN Blood specimen (specimen) 05/16/2017 8:57 AM NETWORKING SPECIALIST Narrative BREEZE PFT - 05/19/2017 4:56 AM NETWORKING SPECIALIST Verified by Rhiannon Cain on 05/19/2017. Aime Vu MD LAB - BLOOD ORDERA BLES Performing Organization Address [facility] Co de Phone Number BREEZE PFT LABDE SCAN * (ABNORMAL) Basic metabolic panel (05/16/2017 8:57 AM NETWORKING SPECIALIST) Sodium (External) 140 135 - 145 mmol/L LABDE SCAN Potassium (External) 5.3(H) 3.5 - 5.0 mmol/L LABDE SCAN Chloride (External) 107 98 - 110 mmol/L LABDE SCAN CO2 (External) 25 21 - 31 mmol/L LABDE SCAN Anion Gap (External) 8 5 - 18 LABDE SCAN Glucose (External) 99 65 - 100 mg/dL LABDE SCAN Calcium (External) 9.3 8.5 - 10.5 mg/dL LABDE SCAN Urea Nitrogen (External) 26(H) 8 - 25 mg/dL LABDE SCAN Creatinine (External) 1.63(H) 0.72 - 1.25 mg/dL LABDE SCAN BUN/Creatinine Ratio (External) 16 10 - 20 LABDE SCAN GFR Estimated (if ) (External) 52(L) >60 ml/min/1.7 3m2 LABDE SCAN GFR Estimated (External) 43(L) >60 ml/min/1.7 3m2 LABDE SCAN Blood specimen (specimen) 05/16/2017 8:57 AM NETWORKING SPECIALIST Narrative BREEZE PFT - 05/19/2017 4:56 AM NETWORKING SPECIALIST Verified by Rhiannon Cain on 05/19/2017. Aime Vu MD LAB - BLOOD ORDERA BLES Performing Organization Address [facility]/ZIP Co de Phone Number BREEZE PFT LABDE SCAN * (ABNORMAL) CBC with platelets (05/16/2017 8:57 AM NETWORKING SPECIALIST) WBC Count (External) 2.1(L) 4.5 - 110 thou/cu mm LABDE SCAN RBC Count (External) 3.95(L) 4.30 - 5.90 mil/cu mm LABDE SCAN Hemoglobin (External) 11.5(L) 13.5 - 17.5 g/dL LABDE SCAN Hematocrit (External) 34.8(L) 37.0 - 53.0 % LABDE SCAN MCV (External) 88 80 - 100 fL LABDE SCAN MCH (External) 29.1 26.0 - 34.0 pg LABDE SCAN MCHC (External) 33.0 32.0 - 36.0 g/dL LABDE SCAN RDW (External) 15.0 11.5 - 15.5 % LABDE SCAN Platelet Count (External) 135(L) 140 - 440 thou/cu mm LABDE SCAN Blood specimen (specimen) 05/16/2017 8:57 AM NETWORKING SPECIALIST Narrative SAMANTHA PFT - 05/19/2017 4:56 AM NETWORKING SPECIALIST Verified by Rhiannon Cain on 05/19/2017. 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/16 urine, 07/10/16 rectal swab 06/21/2016 06/21/2016 documented as of this encounter Care Teams Bottom Turning Lathe Tender Relationship Specialty Start Date End Date Rubén Boyle MD PCP - General Family Practice 03/08/16 Pamela Blanco GENERAL MAINTENANCE HELPER [facility] [address] [place] [address] Referring Physician 07/13/16 Pedro Segura MD [facility] [address] [place] [address] Nephrology 10/03/16 Freddy Craft MD [address] [facility] [address] [place], [place] [address] Assigned Gastroenterology Provider 02/08/20 Abdifatah Van MD 717 [facility] [address] [place] [address] Assigned Nephrology Provider 07/13/20 11/07/23 Nicole Carranza NP 420 [facility] [address] [place], [place] [address] Assigned Heart and Vascular Provider 01/09/22 Andressa Ruiz PA-C 420 [facility] 803 [place] [address] Physician Call Center Manager Endocrinology, Diabetes, and Metabolism 03/01/22 Ashlyn Storm, RN [facility] [address] [place], [place] [address] Registered Nurse 03/03/22 09/15/22 Rubén Gunter [facility] [address] [place] [address] [place] [address] Assigned MTM Pharmacist 02/27/22 Andressa Ruiz PA-C 420 [facility] [address] [place] [address] Assigned Endocrinology Provider 03/13/22 09/07/23 Suzan Harry MD 420 [place] [address] Nephrology 06/30/23 Yasmeen Powers MD 500 [place] [address] Nephrology 10/24/23 Yasmeen Powers MD [address] [place] [address] Assigned Nephrology Provider 11/08/23 documented as of this encounter
--- OUTSIDE RECORDS SUMMARY | 2023-12-15 10:10 | XMS_ITS | Encounter Summary ---
Author Organization [facility] Address [address] [place] [address] Care Team Providers Care Rice Milling Supervisor Name Role Phone Rubén Boyle MD Primary Care Provider Pamela Blanco GRAIN ELEVATOR MAN Unavailable Pedro Segura MD Unavailable Freddy Craft MD Unavailable Abdifatah Van MD Unavailable Nicole Carranza GRAIN ELEVATOR MAN Unavailable [phone] Andressa Ruiz-C Unavailable Ashlyn Storm RN Unavailable Rubén Gunter [facility] Unavailable Andressa Ruiz-C Unavailable Suzan Harry MD Unavailable [phone] Yasmeen Powers MD Unavailable [phone] Yasmeen Powers MD Unavailable [phone] Encounter Details Date Type Department Care Team (Latest Contact Info) Description 08/24/2017 External Order Results [facility] [address] [place] [address] History of liver transplant (H); [...] Comments TACROLIMUS BY TANDEM MASS SPECTROMETRY Routine 08/24/2017 8:45 AM CDT History of liver transplant (H) Status post kidney transplant Long-term use of immunosuppressant medication PHOSPHORUS Routine 08/24/2017 8:45 AM CDT History of liver transplant (H) Status post kidney transplant Long-term use of immunosuppressant medication MAGNESIUM Routine 08/24/2017 8:45 AM CDT History of liver transplant (H) Status post kidney transplant Long-term use of immunosuppressant medication HEPATIC FUNCTION PANEL Routine 08/24/2017 8:45 AM CDT History of liver transplant (H) Status post kidney transplant Long-term use of immunosuppressant medication BASIC METABOLIC PANEL Routine 08/24/2017 8:45 AM CDT History of liver transplant (H) Status post kidney transplant Long-term use of immunosuppressant medication CBC WITH PLATELETS Routine 08/24/2017 8: 45 AM CDT History of liver transplant (H) Status post kidney transplant Long-term use of immunosuppressant medication documented in this encounter Results * Tacrolimus level (08/24/2017 8:45 AM CDT) Tacrolimus(FK-5 06) (External) 3.5 ng/mL LABDE SCAN Tacrolimus Last Dose (External) Not given LABDE SCAN Blood specimen (specimen) 08/24/2017 8:45 AM CDT Narrative BREEZE PFT - 08/26/2017 8:46 AM CDT Verified by Cruzito Marlow on 08/26/2017. Freddy Dumont MD LAB - BLOOD ORD ERABLES Performing Organization Address [facility]/ZIP Co de Phone Number BREEZE PFT LABDE SCAN * (ABNORMAL) Basic metabolic panel (08/24/2017 8:45 AM CDT) Sodium (External) 141 135 - 145 mmol/L LABDE SCAN Potassium (External) 4.6 3.5 - 5.0 mmol/L LABDE SCAN Chloride (External) 106 98 - 110 mmol/L LABDE SCAN CO2 (External) 26 21 - 31 mmol/L LABDE SCAN Anion Gap (External) 9 5 - 18 LABDE SCAN Glucose (External) 109(H) 65 - 100 mg/dL LABDE SCAN Calcium (External) 9.4 8.5 - 10.5 mg/dL LABDE SCAN Urea Nitrogen (External) 35(H) 8 - 25 mg/dL LABDE SCAN Creatinine (External) 2.03(H) 0.72 - 1.25 mg/dL LABDE SCAN BUN/Creatinine Ratio (External) 17 10 - 20 LABDE SCAN GFR Estimated (if ) (External) 40(L) >60 ml/min/1.7 3 m2 LABDE SCAN GFR Estimated (External) 33(L) >60 ml/min/1.7 3 m2 LABDE SCAN Blood specimen (specimen) 08/24/2017 8:45 AM CDT Narrative BREEZE PFT - 08/25/2017 11:25 AM CDT Verified by Rhiannon Cain on 08/25/2017. Freddy Dumont MD LAB - BLOOD ORD ERABLES Performing Organization Address City/[facility]/ZIP Co de Phone Number AMNAE PFT LABDE SCAN * (ABNORMAL) CBC with platelets (08/24/2017 8:45 AM CDT) WBC Count (External) 2.9(L) 4.5 - 11.0 thou/cu mm LABDE SCAN RBC Count (External) 3.76(L) 4.30 - 5.90 mil/cu mm LABDE SCAN Hemoglobin (External) 12.2(L) 13.5 - 17.5 g/dL LABDE SCAN Hematocrit (External) 34.5(L) 37.0 - 53.0 % LABDE SCAN MCV (External) 92 80 - 100 fl LABDE SCAN MCH (External) 32.4 26.0 - 34.0 pg LABDE SCAN MCHC (External) 35.4 32.0 - 36.0 g/dL LABDE SCAN RDW (External) 15.6(H) 11.5 - 15.5 % LABDE SCAN Platelet Count (External) 143 140 - 440 thou/cu mm LABDE SCAN Blood specimen (specimen) 08/24/2017 8:45 AM CDT Narrative AMNAE PFT - 08/25/2017 11:25 AM CDT Verified by Rhiannon Cain on 08/25/2017. Freddy Dumont MD LAB - BLOOD ORD ERABLES ERICKEZE PFT LABDE SCAN * Hepatic panel (08/24/2017 8:45 AM CDT) Albumin (External) 4.3 3.2 - 4.6 g/dL LABDE SCAN Protein Total (External) 7.1 6.0 - 8.0 g/dL LABDE SCAN Bilirubin Total (External) 1.1 0.2 - 1.2 mg/dL LABDE SCAN Bilirubin Direct (External) 0.4 0.1 - 0.5 mg/dL LABDE SCAN Alk Phosphatase (External) 96 50 - 136 IU/L LABDE SCAN ALT (External) 9 8 - 45 IU/L LABDE SCAN AST (External) 17 2 - 40 IU/L LABDE SCAN Blood specimen (specimen) 08/24/2017 8:45 AM CDT Narrative AMNAE PFT - 08/25/2017 11:25 AM CDT Verified by Rhiannon Cain on 08/25/2017. Freddy Dumont MD LAB - BLOOD ORD ERALASHAE ERICKEZE PFT LABDE SCAN * Phosphorus (08/24/2017 8:45 AM CDT) Phosphorus (External) 3.8 2.3 - 4.7 mg/dL LABDE SCAN Blood specimen (specimen) 08/24/2017 8:45 AM CDT Narrative BREEZE PFT - 08/25/2017 11:24 AM CDT Verified by Rhiannon Cain on 08/25/2017. Freddy Dumont MD LAB - BLOOD ORD ERABLES BREEZE PFT LABDE SCAN * Magnesium (08/24/2017 8:45 AM CDT) Magnesium (External) 2.3 1.6 - 2.6 mg/dL LABDE SCAN Blood specimen (specimen) 08/24/2017 8:45 AM CDT Narrative BREEZE PFT - 08/25/2017 11:24 AM CDT Verified by Rhiannon Cain on 08/25/2017. Freddy Dumont MD LAB - BLOOD ORD ERABLES AMNAE PFT LABDE SCAN documented in this encounter [...] documented as of this encounter Care Teams Rice Milling Supervisor Relationship Specialty Start Date End Date Rubén Boyle MD PCP - General Family Practice 03/08/16 Pamela Blanco NP [address] [address] Referring Physician 07/13/16 Pedro Segura MD [facility] [address] [place], [place] [address] Nephrology 10/03/16 Freddy Craft MD [facility] [place], [place] [address] Assigned Gastroenterology Provider 02/08/20 Abdifatah Van MD [address] [facility] [address] [place], [place] [id number] Assigned Nephrology Provider 07/13/20 11/07/23 Nicole Carranza NP [address] [facility] [address] [place], [place] [address] Assigned Heart and Vascular Provider 01/09/22 Andressa Ruiz PA-C 420 [facility] [address]03 [place], [place] [address] Physician Foil Stamp Operator Endocrinology, Diabetes, and Metabolism 03/01/22 Ashlyn Storm RN [facility] [address] [place], [place] [address]24[address] Registered Nurse 03/03/22 09/15/22 Rubén Gunter [facility] [address] [place] [address] Assigned MTM Pharmacist 02/27/22 Andressa Ruiz PA-C [address] [facility] [address] [place], [place] [address] Assigned Endocrinology Provider 03/13/22 09/07/23 Suzan Harry MD [address] [place] [id number] Nephrology 06/30/23 Yasmeen Powers MD [address] [place], [place] [address] Nephrology 10/24/23 Yasmeen Powers MD [address] [place], [place] 9[address] Assigned Nephrology Provider 11/08/23 documented as of this encounter
--- OUTSIDE RECORDS SUMMARY | 2023-12-15 10:10 | XMS_ITS | Encounter Summary ---
Author Organization [place] Address [address] [place] [address] Care Team Providers Care Vacuum Spindle Sander Name Role Phone Rubén Boyle MD Primary Care Provider [phone] Pamela Blanco BASIC SCIENCES DEAN Unavailable Pedro Segura MD Unavailable Freddy Craft MD Unavailable Abdifatah Van MD Unavailable Nicole Carranza BASIC SCIENCES DEAN Unavailable [phone] Andressa Ruiz-C Unavailable Ashlyn Storm RN Unavailable Rubén Gunter [facility] Unavailable Andressa Ruiz-C Unavailable Suzan Harry MD Unavailable [phone] Yasmeen Powers MD Unavailable [phone] Yasmeen Powers MD Unavailable [phone] Encounter Details Date Type Department Care Team (Latest Contact Info) Description 07/08/2017 External Order Results [facility] [address] [place] [address] 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); 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 transplant; 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 Social [...] Associated Diagnosis Comments EXTERNAL LAB RESULTS Routine 07/08/2017 8:56 AM CDT PHOSPHORUS Routine 07/08/2017 7:56 AM CDT 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) 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 MAGNESIUM Routine 07/08/2017 7:56 AM CDT 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) 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 transplant senior care use of drug HEPATIC FUNCTION PANEL Routine 07/08/2017 7:56 AM CDT 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) 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 BASIC METABOLIC PANEL Routine 07/08/2017 7:56 AM CDT 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) 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 Patient Reported LABORATORY BREEZE PFT LABDE SCAN * Hepatic panel (Albumin, ALT, AST, Bili, Alk Phos, TP) (07/08/2017 7:56 AM CDT) Albumin (External) 4.1 3.2 - 4.6 g/dL LABDE SCAN Protein Total (External) 6.7 6.0 - 8.0 g/dL LABDE SCAN Bilirubin Total (External) 1.0 0.2 - 1.2 mg/dL LABDE SCAN Bilirubin Direct (External) 0.3 0.1 - 0.5 mg/dL LABDE SCAN Alk Phosphatase (External) 97 50 - 136 IU/L LABDE SCAN ALT (External) 11 8 - 45 IU/L LABDE SCAN AST (External) 18 2 - 40 IU/L LABDE SCAN Blood specimen (specimen) 07/08/2017 7:56 AM CDT Narrative BREEZE PFT - 07/08/2017 1:16 PM CDT Verified by Rhiannon Cain on 07/08/2017. Freddy Dumont MD LAB - BLOOD ORD ERABLES Performing Organization Address [facility] [place] [facility] Co de Phone Number [facility] * Phosphorus (07/08/2017 7:56 AM CDT) Phosphorus (External) 4.4 2.3 - 4.7 mg/dL LABDE SCAN Blood specimen (specimen) 07/08/2017 7:56 AM CDT Narrative ERICKEZE PFT - 07/08/2017 1:16 PM CDT Verified by Rhiannon Cain on 07/08/2017. Freddy Dumont MD LAB - BLOOD ORD ERABLES BREEZE PFT LABDE SCAN * Magnesium (07/08/2017 7:56 AM CDT) Magnesium (External) 1.9 1.6 - 2.6 mg/dL LABDE SCAN Blood specimen (specimen) 07/08/2017 7:56 AM CDT Narrative ERICKEZE PFT - 07/08/2017 1:16 PM CDT Verified by Rhiannon Cain on 07/08/2017. Freddy Dumont MD LAB - BLOOD ORD ERABLES Performing Organization Address [facility] [place] [facility]/ZIP Co de Phone Number BREEZE PFT LABDE SCAN * (ABNORMAL) Basic metabolic panel (07/08/2017 7:56 AM CDT) Sodium (External) 140 135 - 145 mmol/L LABDE SCAN Potassium (External) 4.7 3.5 - 5.0 mmol/L LABDE SCAN Chloride (External) 104 98 - 110 mmol/L LABDE SCAN CO2 (External) 28 21 - 31 mmol/L LABDE SCAN Anion Gap (External) 8 5 - 18 LABDE SCAN Glucose (External) 144(H) 65 - 100 mg/dL LABDE SCAN Calcium (External) 9.2 8.5 - 10.5 mg/dL LABDE SCAN Urea Nitrogen (External) 29(H) 8 - 25 mg/dL LABDE SCAN Creatinine (External) 2.23(H) 0.72 - 1.25 mg/dL LABDE SCAN BUN/Creatinine Ratio (External) 13 10 - 20 LABDE SCAN GFR Estimated (if ) (External) 36(L) >60 ml/min/1.7 3m2 LABDE SCAN GFR Estimated (External) 30(L) >60 ml/min/1.7 3m2 LABDE SCAN Blood specimen (specimen) 07/08/2017 7:56 AM CDT Narrative ERICKEZE PFT - 07/08/2017 1:16 PM CDT Verified by Rhiannon Cain on 07/08/2017. Freddy Dumont MD LAB - BLOOD ORD ERABLES BREEZE PFT LABDE SCAN * (ABNORMAL) CBC with platelets (07/08/2017 7:56 AM CDT) WBC Count (External) 2.7(L) 4.5 - 11.0 thou/cu mm LABDE SCAN RBC Count (External) 4.00(L) 4.30 - 5.90 mil/cu mm LABDE SCAN Hemoglobin (External) 12.1(L) 13.5 - 17.5 g/dL LABDE SCAN Hematocrit (External) 35.6(L) 37.0 - 53.0 % LABDE SCAN MCV (External) 89 80 - 100 fL LABDE SCAN MCH (External) 30.3 26.0 - 34.0 pg LABDE SCAN MCHC (External) 34.0 32.0 - 36.0 g/dL LABDE SCAN RDW (External) 15.2 11.5 - 15.5 % LABDE SCAN Platelet Count (External) 136(L) 140 - 440 thou/cu mm LABDE SCAN Blood specimen (specimen) 07/08/2017 7:56 AM CDT Narrative SAMANTHA PFT - 07/08/2017 1:16 PM CDT Verified by Rhiannon Cain on 07/08/2017. 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 Encounter for long-term (current) use of other medications documented in this encounter Additional Health Concerns Infection Onset Date Last Indicated Resolved Time 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/16 urine, 07/10/16 rectal swab 06/21/2016 06/21/2016 documented as of this encounter Care Teams Vacuum Spindle Sander Relationship Specialty Start Date End Date Rubén Boyle MD PCP - General Family Practice 03/08/16 Pamela Blanco NP [facility] [address] [place] [address] Referring Physician 07/13/16 Pedro Segura MD [facility] [address] [place] [address] Nephrology 10/03/16 Freddy Craft MD [address] [facility] [address] [place] [address] Assigned Gastroenterology Provider 02/08/20 Abdifatah Van MD [address] [facility] [address] [place] [address] Assigned Nephrology Provider 07/13/20 11/07/23 Nicole Carranza, [place] [address] [facility] [address] [place] [address] Assigned Heart and Vascular Provider 01/09/22 Andressa Ruiz PA-C [address] [facility] 803 [place] [address] Physician Lime Mixer Tender Endocrinology, Diabetes, and Metabolism 03/01/22 Ashlyn Storm, RN [facility] 7[address] [place] [address] Registered Nurse 03/03/22 09/15/22 Rubén Gunter [facility] [address] [place] [address] Assigned MTM Pharmacist 02/27/22 Andressa Ruiz PA-C [address] [facility] [address]03 [place] [address] Assigned Endocrinology Provider 03/13/22 09/07/23 Suzan Harry MD 420 [place] [address] Nephrology 06/30/23 Yasmeen Powers MD 500 [place] [address] Nephrology 10/24/23 Yasmeen Powers MD [address] [place], [place] [address] Assigned Nephrology Provider 11/08/23 documented as of this encounter
--- OUTSIDE RECORDS SUMMARY | 2023-12-15 10:10 | XMS_ITS | Encounter Summary ---
Author Organization [facility] Address [address] [place] [address] Care Team Providers Care Digital Sales Director Name Role Phone Rubén Boyle MD Primary Care Provider Pamela Blanco OPTICAL GLASS SILVERER Unavailable [phone] Pedro Segura MD Unavailable Freddy Craft MD Unavailable [phone] Abdifatah Van MD Unavailable Nicole Carranza OPTICAL GLASS SILVERER Unavailable [phone] Andressa Ruiz-C Unavailable [phone] Ashlyn Storm RN Unavailable [phone] Rubén Gunter [facility] Unavailable Andressa Ruiz-C Unavailable [phone] Suzan Harry MD Unavailable [phone] Yasmeen Powers MD Unavailable [phone] Yasmeen Powers MD Unavailable [phone] Encounter Details Date Type Department Care Team (Late st Contact Info) Description 09/20/[address] [facility] [address] [place] [address] Social History Tobacco Use Types [...] of this encounter Care Teams Digital Sales Director Relationship Specialty Start Date End Date Rubén Boyle MD PCP - General Family Practice 03/08/16 Pamela Blanco OPTICAL GLASS SILVERER [facility] [address] [place], [place] [address] Referring Physician 07/13/[address] [facility] [address] [place], [place] [address] Nephrology 10/03/16 Freddy Craft MD [facility] [address] [place], [place] [address] Assigned Gastroenterology Provider 02/08/20 Abdifatah Van MD [address] [facility] [address] [place] [address] Assigned Nephrology Provider 07/13/20 11/07/23 Nicole Carranza NP 420 [facility] [address] [place] [address] Assigned Heart and Vascular Provider 01/09/22 Andressa Ruiz PA-C 420 [facility] 803 [place] [address] Physician Linderman Machine Operator Endocrinology, Diabetes, and Metabolism 03/01/22 Ashlyn Storm, RN [facility] 7[address] [place] [address] Registered Nurse 03/03/22 09/15/22 Rubén Gunter [facility] [address] [place] [address] Assigned MTM Pharmacist 02/27/22 Andressa Ruiz PA-C [address] [facility] [address] [place] [address] Assigned Endocrinology Provider 03/13/22 09/07/23 Suzan Harry MD [address] [place] [address] Nephrology 06/30/23 Yasmeen Powers MD 500 [place] [address] Nephrology 10/24/23 Yasmeen Powers MD 500 [place] [address] Assigned Nephrology Provider 11/08/23 documented as of this encounter
--- OUTSIDE RECORDS SUMMARY | 2023-12-15 10:10 | XMS_ITS | Encounter Summary ---
Author Organization [place] Address [address] [place] [address] Care Team Providers Care Moulder Operator Name Role Phone Rubén Boyle MD Primary Care Provider [phone] Pamela Blanco APPRENTICE PLUMBER Unavailable Pedro Segura MD Unavailable Freddy Craft MD Unavailable Abdifatah Van MD Unavailable Nicole Carranza APPRENTICE PLUMBER Unavailable [phone] Andressa Ruiz-C Unavailable Ashlyn Storm RN Unavailable Rubén Gunter [facility] Unavailable Andressa Ruiz-C Unavailable [phone] Suzan Harry MD Unavailable [phone] Yasmeen Powers MD Unavailable [phone] Yasmeen Powers MD Unavailable [phone] Encounter Details Date Type Department Care Team (Latest Contact Info) Description 04/27/2017 External Order Results [facility] [address] [place] [address] Long-term use of immunosuppressant medication; [...] Procedure Name Priority Date/Time Associated Diagnosis Comments PHOSPHORUS Routine 04/26/2017 8:55 AM ENVIRONMENTAL HEALTH TECHNOLOGIST Long-term use of immunosuppressant medication 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) MAGNESIUM Routine 04/26/2017 8:55 AM ENVIRONMENTAL HEALTH TECHNOLOGIST Long-term use of immunosuppressant medication 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) HEPATIC FUNCTION PANEL Routine 04/26/2017 8:55 AM ENVIRONMENTAL HEALTH TECHNOLOGIST Long-term use of immunosuppressant medication 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) BASIC METABOLIC PANEL Routine 04/26/2017 8:55 AM ENVIRONMENTAL HEALTH TECHNOLOGIST Long-term use of immunosuppressant medication 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) CBC WITH PLATELETS Routine 04/26/2017 8: 55 AM ENVIRONMENTAL HEALTH TECHNOLOGIST Long-term use of immunosuppressant medication 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) documented in this encounter Results * Phosphorus (04/26/2017 8:55 AM ENVIRONMENTAL HEALTH TECHNOLOGIST) Phosphorus (External) 3.9 2.3 - 4.7 mg/dL LABDE SCAN Blood specimen (specimen) 04/26/2017 8:55 AM ENVIRONMENTAL HEALTH TECHNOLOGIST Narrative SAMANTHA PFT - 04/27/2017 6:23 PM ENVIRONMENTAL HEALTH TECHNOLOGIST Verified by Myrna Monreal on 04/27/2017. Aime Vu MD LAB - BLOOD ORDERA BLES SAMANTHA PFT LABDE SCAN * Magnesium (04/26/2017 8:55 AM ENVIRONMENTAL HEALTH TECHNOLOGIST) Magnesium (External) 1.9 1.6 - 2.6 mg/dL LABDE SCAN Blood specimen (specimen) 04/26/2017 8:55 AM ENVIRONMENTAL HEALTH TECHNOLOGIST [facility] PFT - 04/27/2017 6:23 PM ENVIRONMENTAL HEALTH TECHNOLOGIST Verified by Myrna Monreal on 04/27/2017. Aime Vu MD LAB - BLOOD ORDERA BLES Performing Organization Address [facility] de Phone Number [facility] PFT LABDE SCAN * Hepatic panel (04/26/2017 8:55 AM ENVIRONMENTAL HEALTH TECHNOLOGIST) Albumin (External) 3.8 3.2 - 4.6 g/dL LABDE SCAN Protein Total (External) 6.0 6.0 - 8.0 g/dL LABDE SCAN Bilirubin Total (External) 0.7 0.2 - 1.2 mg/dL LABDE SCAN Bilirubin Direct (External) 0.3 0.1 - 0.5 mg/dL LABDE SCAN Alk Phosphatase (External) 121 50 - 136 IU/L LABDE SCAN ALT (External) 16 8 - 45 IU/L LABDE SCAN AST (External) 20 2 - 40 IU/L LABDE SCAN Blood specimen (specimen) 04/26/2017 8:55 AM ENVIRONMENTAL HEALTH TECHNOLOGIST [facility] PFT - 04/27/2017 6:23 PM ENVIRONMENTAL HEALTH TECHNOLOGIST Verified by Myrna Monreal on 04/27/2017. Aime Vu MD LAB - BLOOD ORDERA BLES Performing Organization Address [facility] de Phone Number [facility] PFT LABDE SCAN * (ABNORMAL) CBC with platelets (04/26/2017 8:55 AM ENVIRONMENTAL HEALTH TECHNOLOGIST) WBC Count (External) 2.2(L) 4.5 - 11.0 thou/cu mm LABDE SCAN RBC Count (External) 4.46 4.30 - 5.90 mil/cu mm LABDE SCAN Hemoglobin (External) 12.5(L) 13.5 - 17.5 g/dL LABDE SCAN Hematocrit (External) 38.0 37.0 - 53.0 % LABDE SCAN MCV (External) 85 80 - 100 fL LABDE SCAN MCH (External) 28.0 26.0 - 34.0 pg LABDE SCAN MCHC (External) 32.9 32.0 - 36.0 g/dL LABDE SCAN RDW (External) 15.5 11.5 - 15.5 % LABDE SCAN Platelet Count (External) 153 140 - 440 thou/cu mm LABDE SCAN Blood specimen (specimen) 04/26/2017 8:55 AM ENVIRONMENTAL HEALTH TECHNOLOGIST Narrative SAMANTHA PFT - 04/27/2017 6:23 PM ENVIRONMENTAL HEALTH TECHNOLOGIST Verified by Myrna Monreal on 04/27/2017. Aime Vu MD LAB - BLOOD ORDERA BLES SAMANTHA PFT LABDE SCAN * (ABNORMAL) Basic metabolic panel (04/26/2017 8:55 AM ENVIRONMENTAL HEALTH TECHNOLOGIST) Sodium (External) 138 135 - 145 mmol/L LABDE SCAN Potassium (External) 5.8(H) 3.5 - 5.0 mmol/L LABDE SCAN Chloride (External) 109 98 - 110 mmol/L LABDE SCAN CO2 (External) 23 21 - 31 mmol/L LABDE SCAN Anion Gap (External) 6 5 - 18 LABDE SCAN Glucose (External) 119(H) 65 - 100 mg/dL LABDE SCAN Calcium (External) 9.0 8.5 - 10.5 mg/dL LABDE SCAN Urea Nitrogen (External) 18 8 - 25 mg/dL LABDE SCAN Creatinine (External) 1.72(H) 0.72 - 1.25 mg/dL LABDE SCAN BUN/Creatinine Ratio (External) 10 10 - 20 LABDE SCAN GFR Estimated (if ) (External) 49(L) >60 ml/min/1.7 3m2 LABDE SCAN GFR Estimated (External) 40(L) >60 ml/min/1.7 3m2 LABDE SCAN Blood specimen (specimen) 04/26/2017 8:55 AM ENVIRONMENTAL HEALTH TECHNOLOGIST Narrative SAMANTHA PFT - 04/27/2017 6:23 PM ENVIRONMENTAL HEALTH TECHNOLOGIST Verified by Myrna Monreal on 04/27/2017. Aime Vu MD LAB - BLOOD ORDERA SOCOS [facility] PFT LABDE SCAN documented in this encounter Visit Diagnoses Diagnosis Long-term use of immunosuppressant medication Encounter for long-term (current) use of other medications 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) Liver replaced by transplant documented in this encounter Additional Health Concerns Infection Onset Date Last Indicated Resolved Time 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/16 urine, 07/10/16 rectal swab 06/21/2016 06/21/2016 documented as of this encounter Care Teams Moulder Operator Relationship Specialty Start Date End Date Rubén Boyle MD PCP - General Family Practice 03/08/16 Pamela Blanco NP [facility] [address] [place], [place] [id number] Referring Physician 07/13/16 Pedro Segura MD [facility] [address] [place] [address] Nephrology 10/03/16 Freddy Craft MD [address] [facility] [address] [place] [address] Assigned Gastroenterology Provider 02/08/20 Abdifatah Van MD [address] [place] [address] Assigned Nephrology Provider 07/13/20 11/07/23 Nicole Carranza NP 420 [facility] [address] [place] [address] Assigned Heart and Vascular Provider 01/09/22 Andressa Ruiz PA-C 420 [facility] [address] [place], [place] [address] Physician Sales Representative Aircraft Endocrinology, Diabetes, and Metabolism 03/01/22 Ashlyn Storm RN [facility] [address] [place] [address] Registered Nurse 03/03/22 09/15/22 Rubén Gunter [facility] [address] [place] [address] Assigned MTM Pharmacist 02/27/22 Andressa Ruiz PA-C [address] [address] Assigned Endocrinology Provider 03/13/22 09/07/23 Suzan Harry MD [address] [place], [place] [address] Nephrology 06/30/23 Yasmeen Powers MD 500 [place] [address] Nephrology 10/24/23 Yasmeen Powers MD [address] [place] [address] Assigned Nephrology Provider 11/08/23 documented as of this encounter
--- OUTSIDE RECORDS SUMMARY | 2023-12-15 10:10 | XMS_ITS | Encounter Summary ---
Author Organization [place] Address [address] [place] [address] Care Team Providers Care Airplane Coverer Name Role Phone Rubén Boyle MD Primary Care Provider Pamela Blanco LAMP INSPECTOR Unavailable Pedro Segura MD Unavailable [phone] Freddy Craft MD Unavailable Abdifatah Van MD Unavailable Nicole Carranza LAMP INSPECTOR Unavailable [phone] Andressa Ruiz-C Unavailable Ashlyn Storm RN Unavailable [phone] Rubén Gunter [facility] Unavailable Andressa Ruiz-C Unavailable Suzan Harry MD Unavailable [phone] Yasmeen Powers MD Unavailable Yasmeen Powers MD Unavailable [phone] Encounter Details Date Type Department Care Team (Latest Contact Info) Description 04/28/2017 External Order Results [facility] [address] [place] [address] Long-term use of immunosuppressant medication; [...] Comments TACROLIMUS BY TANDEM MASS SPECTROMETRY Routine 04/26/2017 8:55 AM DISPLAY DECORATOR Long-term use of immunosuppressant medication 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) documented in this encounter Results * Tacrolimus level (04/26/2017 8:55 AM DISPLAY DECORATOR) Tacrolimus(FK-5 06) (External) 9.2 ng/mL LABDE SCAN Tacrolimus Last Dose (External) 04/25/2017 at 2000 LABDE SCAN Blood specimen (specimen) 04/26/2017 8:55 AM DISPLAY DECORATOR Narrative SAMANTHA PFT - 04/28/2017 3:36 PM DISPLAY DECORATOR Verified by Rhiannon Cain on 04/28/2017. 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, 07/10/16 rectal swab 06/21/2016 06/21/2016 documented as of this encounter Care Teams Airplane Coverer Relationship Specialty Start Date End Date Rubén Boyle MD PCP - General Family Practice 03/08/16 Pamela Blanco NP [facility] [address] [place] [address] Referring Physician 07/13/16 Pedro Segura MD [facility] [address] [place] [address] Nephrology 10/03/16 Freddy Craft MD [address] [facility] [place], [place] [address] Assigned Gastroenterology Provider 02/08/20 Abdifatah Van MD [address] [facility] [address] [place], [place] [address] Assigned Nephrology Provider 07/13/20 11/07/23 Nicole Carranza NP 420 [facility] [address] [place], [place] [address] Assigned Heart and Vascular Provider 01/09/22 Andressa Ruiz PA-C 420 [facility] [address] [place], [place] [address] Physician E Commerce Specialist Endocrinology, Diabetes, and Metabolism 03/01/22 Ashlyn Storm, RN [facility] [address] [place], [place] [address] Registered Nurse 03/03/22 09/15/22 Rubén Gunter [facility] [address] [facility] [address] [place], [place] 36[address] Assigned MTM Pharmacist 02/27/22 Andressa Ruiz PA-C 420 [facility] [address] [place] [address] Assigned Endocrinology Provider 03/13/22 09/07/23 Suzan Harry MD 420 [place] [address] Nephrology 06/30/23 Yasmeen Powers MD 500 [place] [address] Nephrology 10/24/23 Yasmeen Powers MD [address] [place] [address] Assigned Nephrology Provider 11/08/23 documented as of this encounter
--- OUTSIDE RECORDS SUMMARY | 2023-12-15 10:10 | XMS_ITS | Encounter Summary ---
Author Organization [place] Address [address] [place] [address] Care Team Providers Care Secretary Receptionist Name Role Phone Rubén Boyle MD Primary Care Provider [phone] Pamela Blanco PERSONNEL OFFICER Unavailable Pedro Segura MD Unavailable Freddy Craft MD Unavailable [phone] Abdifatah Van MD Unavailable Nicole Carranza PERSONNEL OFFICER Unavailable [phone] Andressa Ruiz-C Unavailable Ashlyn Storm RN Unavailable Rubén Gunter [facility] Unavailable Andressa Ruiz-C Unavailable Suzan Harry MD Unavailable [phone] Yasmeen Powers MD Unavailable Yasmeen Powers MD Unavailable [phone] Encounter Details Date Type Department Care Team (Latest Contact Info) Description 06/02/2017 External Order Results [facility] [address] [place] [address] Long-term use of immunosuppressant medication; 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); 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 transplant; termite control service representative use of drug Social History Tobacco Use [...] Comments TACROLIMUS BY TANDEM MASS SPECTROMETRY Routine 05/30/2017 8:57 AM SENIOR ORACLE DBA Long-term use of immunosuppressant medication 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) PHOSPHORUS Routine 05/30/2017 8:57 AM SENIOR ORACLE DBA 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) 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 transplant termite control service representative use of drug MAGNESIUM Routine 05/30/2017 8:57 AM SENIOR ORACLE DBA 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) 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 transplant termite control service representative use of drug HEPATIC FUNCTION PANEL Routine 05/30/2017 8:57 AM SENIOR ORACLE DBA 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) 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 transplant longterm use of drug BASIC METABOLIC PANEL Routine 05/30/2017 8:57 AM SENIOR ORACLE DBA 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) 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 transplant longterm use of drug CBC WITH PLATELETS Routine 05/30/2017 8: 57 AM SENIOR ORACLE DBA 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) 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 transplant termite control service representative use of drug documented in this encounter Results * Phosphorus (05/30/2017 8:57 AM SENIOR ORACLE DBA) Phosphorus (External) 4.4 2.3 - 4.7 mg/dL LABDE SCAN Blood specimen (specimen) 05/30/2017 8:57 AM SENIOR ORACLE DBA Narrative SAMANTHA PFT - 06/02/2017 2:39 PM SENIOR ORACLE DBA Verified by Myrna Monreal on 06/02/2017. Freddy Dumont MD LAB - BLOOD ORD ERABLES [facility] LABDE SCAN * Magnesium (05/30/2017 8:57 AM SENIOR ORACLE DBA) Magnesium (External) 1.9 1.6 - 2.6 mg/dL LABDE SCAN Blood specimen (specimen) 05/30/2017 8:57 AM SENIOR ORACLE DBA Narrative [facility] PFT - 06/02/2017 2:39 PM SENIOR ORACLE DBA Verified by Myrna Monreal on 06/02/2017. Freddy Dumont MD LAB - BLOOD ORD ERABLES Performing Organization Address [facility]/ZIP Co de Phone Number [facility] LABDE SCAN * Hepatic panel (Albumin, ALT, AST, Bili, Alk Phos, TP) (05/30/2017 8:57 AM SENIOR ORACLE DBA) Albumin (External) 3.7 3.2 - 4.6 g/dL LABDE SCAN Protein Total (External) 6.1 6.0 - 8.0 g/dL LABDE SCAN Bilirubin Total (External) 0.8 0.2 - 1.2 mg/dL LABDE SCAN Bilirubin Direct (External) 0.3 0.1 - 0.5 mg/dL LABDE SCAN Alk Phosphatase (External) 107 50 - 136 IU/L LABDE SCAN ALT (External) 18 8 - 45 IU/L LABDE SCAN AST (External) 23 2 - 40 IU/L LABDE SCAN Blood specimen (specimen) 05/30/2017 8:57 AM SENIOR ORACLE DBA Narrative [facility] PFT - 06/02/2017 2:39 PM SENIOR ORACLE DBA Verified by Myrna Monreal on 06/02/2017. Freddy Dumont MD LAB - BLOOD ORD ERABLES [facility] LABDE SCAN * (ABNORMAL) CBC with platelets (05/30/2017 8:57 AM SENIOR ORACLE DBA) WBC Count (External) 2.1(L) 4.5 - 11.0 thou/cu mm LABDE SCAN RBC Count (External) 3.87(L) 4.30 - 5.90 mil/cu mm LABDE SCAN Hemoglobin (External) 11.4(L) 13.5 - 17.5 g/dL LABDE SCAN Hematocrit (External) 34.6(L) 37.0 - 53.0 % LABDE SCAN MCV (External) 89 80 - 100 fL LABDE SCAN MCH (External) 29.5 26.0 - 34.0 pg LABDE SCAN MCHC (External) 32.9 32.0 - 36.0 g/dL LABDE SCAN RDW (External) 15.1 11.5 - 15.5 % LABDE SCAN Platelet Count (External) 131(L) 140 - 440 thou/cu mm LABDE SCAN Blood specimen (specimen) 05/30/2017 8:57 AM SENIOR ORACLE DBA Narrative SAMANTHA KEMP - 06/02/2017 2:39 PM SENIOR ORACLE DBA Verified by Myrna Monreal on 06/02/2017. Freddy Dumont MD LAB - BLOOD ORD ERABLES SAM[facility]THA PFT LABDE SCAN * (ABNORMAL) Basic metabolic panel (05/30/2017 8:57 AM SENIOR ORACLE DBA) Sodium (External) 140 135 - 145 mmol/L LABDE SCAN Potassium (External) 5.1(H) 3.5 - 5.0 mmol/L LABDE SCAN Chloride (External) 105 98 - 110 mmol/L LABDE SCAN CO2 (External) 29 21 - 31 mmol/L LABDE SCAN Anion Gap (External) 6 5 - 18 LABDE SCAN Glucose (External) 137(H) 65 - 100 mg/dL LABDE SCAN Calcium (External) 9.0 8.5 - 10.5 mg/dL LABDE SCAN Urea Nitrogen (External) 22 8 - 25 mg/dL LABDE SCAN Creatinine (External) 1.86(H) 0.72 - 1.25 mg/dL LABDE SCAN BUN/Creatinine Ratio (External) 12 10 - 20 LABDE SCAN GFR Estimated (if ) (External) 45(L) >60 ml/min/1.7 3m2 LABDE SCAN GFR Estimated (External) 37(L) >60 ml/min/1.7 3m2 LABDE SCAN Blood specimen (specimen) 05/30/2017 8:57 AM SENIOR ORACLE DBA Narrative [facility] - 06/02/2017 2:39 PM SENIOR ORACLE DBA Verified by Myrna Monreal on 06/02/2017. Freddy Dumont MD LAB - BLOOD ORD ERABLES [facility] LABDE SCAN * Tacrolimus level (05/30/2017 8:57 AM SENIOR ORACLE DBA) Tacrolimus(FK-5 06) (External) 7.4 ng/mL LABDE SCAN Tacrolimus Last Dose (External) Not given LABDE SCAN Blood specimen (specimen) 05/30/2017 8:57 AM SENIOR ORACLE DBA Narrative [facility] PFT - 06/02/2017 2:16 PM SENIOR ORACLE DBA Verified by Myrna Monreal on 06/02/2017. Aime Vu MD LAB - BLOOD LESTERA BLES [facility] LABDE SCAN documented in this encounter Visit Diagnoses Diagnosis Long-term use of immunosuppressant medication Encounter for long-term (current) use of other medications 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) Liver replaced by transplant 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 transplant longterm use of drug Encounter for long-term (current) use of other medications documented in this encounter Additional Health Concerns Infection Onset Date Last Indicated Resolved Time 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/16 urine, 07/10/16 rectal swab 06/21/2016 06/21/2016 documented as of this encounter Care Teams Secretary Receptionist Relationship Specialty Start Date End Date Rubén Boyle MD PCP - General Family Practice 03/08/16 Pamela Blanco [place] [address] Referring Physician 07/13/16 Pedro Segura MD [facility] [address] [place], [place] [address] Nephrology 10/03/16 Freddy Craft MD [address] [facility] [place], [place] [address] Assigned Gastroenterology Provider 02/08/20 Abdifatah Van MD 717 [facility] [address] [place], [place] [address] Assigned Nephrology Provider 07/13/20 11/07/23 Nicole Carranza NP 420 [facility] 508 [place], [place] [address] Assigned Heart and Vascular Provider 01/09/22 Andressa Ruiz PA-C 420 [facility] 803 [place], [place] [address] Physician Medical Transport Specialist Endocrinology, Diabetes, and Metabolism 03/01/22 Ashlyn Storm RN [facility] 7[address] [place], [place] [address] Registered Nurse 03/03/22 09/15/22 Rubén Gunter [facility] [address]09 [place], [place] [address] Assigned MTM Pharmacist 02/27/22 Andressa Ruiz PA-C 420 [facility] [address]03 [place], [place] [address] Assigned Endocrinology Provider 03/13/22 09/07/23 Suzan Harry MD [address] [place] [address] Nephrology 06/30/23 Yasmeen Powers MD 500 [place], [place] 238135 Nephrology 10/24/23 Yasmeen Powers MD 500 [place], [place] [address] Assigned Nephrology Provider 11/08/23 documented as of this encounter
--- OUTSIDE RECORDS SUMMARY | 2023-12-15 10:10 | XMS_ITS | Encounter Summary ---
Author Organization [facility] Address [address] [place] [address] Care Team Providers Care Wrister Name Role Phone Rubén Boyle MD Primary Care Provider Pamela Blanco [facility] Unavailable [phone] Pedro Segura MD Unavailable Freddy Craft MD Unavailable Abdifatah Van MD Unavailable Nicole Carranza [employer] Unavailable [phone] Andressa Ruiz-C Unavailable Ashlyn Storm RN Unavailable Rubén Gunter [facility] Unavailable Andressa Ruiz-C Unavailable Suzan Harry MD Unavailable [phone] Yasmeen Powers MD Unavailable [phone] Yasmeen Powers MD Unavailable [phone] Encounter Details Date Type Department Care Team (Latest Contact Info) Description 09/06/2017 External Order Results [facility] [address] [place] [address] History of liver transplant (H); [...] Comments TACROLIMUS BY TANDEM MASS SPECTROMETRY Routine 09/06/2017 8:38 AM CDT History of liver transplant (H) Status post kidney transplant Long-term use of immunosuppressant medication PHOSPHORUS Routine 09/06/2017 8:38 AM CDT History of liver transplant (H) Status post kidney transplant Long-term use of immunosuppressant medication MAGNESIUM Routine 09/06/2017 8:38 AM CDT History of liver transplant (H) Status post kidney transplant Long-term use of immunosuppressant medication HEPATIC FUNCTION PANEL Routine 09/06/2017 8:38 AM CDT History of liver transplant (H) Status post kidney transplant Long-term use of immunosuppressant medication BASIC METABOLIC PANEL Routine 09/06/2017 8:38 AM CDT History of liver transplant (H) Status post kidney transplant Long-term use of immunosuppressant medication CBC WITH PLATELETS Routine 09/06/2017 8: 38 AM CDT History of liver transplant (H) Status post kidney transplant Long-term use of immunosuppressant medication documented in this encounter Results * Tacrolimus level (09/06/2017 8:38 AM CDT) Tacrolimus(FK-5 06) (External) 5.1 5 - 6 ng/mL LABDE SCAN Comment: Target blood levels in Kidney Transplant recipient: 0-1 month post transplant: 12-15 ng/mL 1-3 months post transplant: 10-12 ng/mL 3-6 months post transplant: 8-10 ng/mL 6-12 months post transplant: 5-8 ng/mL >12 months post transplant: 5-6 ng/mL Tacrolimus Last Dose (External) 09/05/2017 @2000 LABDE SCAN Blood specimen (specimen) 09/06/2017 8:38 AM CDT Narrative BREEZE PFT - 09/08/2017 10:11 AM CDT Verified by Cruzito Marlow on 09/08/2017. Freddy Dumont MD LAB - BLOOD ORD ERABLES BREEZE PFT LABDE SCAN * (ABNORMAL) Basic metabolic panel (09/06/2017 8:38 AM CDT) Sodium (External) 138 135 - 145 mmol/L LABDE SCAN Potassium (External) 4.6 3.5 - 5.0 mmol/L LABDE SCAN Chloride (External) 101 98 - 110 mmol/L LABDE SCAN CO2 (External) 27 21 - 31 mmol/L LABDE SCAN Anion [...] ml/min/1.7 3m2 LABDE SCAN Blood specimen (specimen) 09/06/2017 8:38 AM CDT Narrative ERICKEZE PFT - 09/07/2017 7:21 AM CDT Verified by Rhiannon Cain on 09/07/2017. Freddy Dumont MD LAB - BLOOD ORD ERABLES BREEZE PFT LABDE SCAN * (ABNORMAL) CBC with platelets (09/06/2017 8:38 AM CDT) WBC Count (External) 2.7(L) 4.5 - 11.0 thou/cu mm LABDE SCAN RBC Count (External) 3.60(L) 4.30 - 5.90 mil/cu mm LABDE SCAN Hemoglobin (External) 11.7(L) 13.5 - 17.5 g/dL LABDE SCAN Hematocrit (External) 33.3(L) 37.0 - 53.0 % LABDE SCAN MCV (External) 93 80 - 100 fl LABDE SCAN MCH (External) 32.5 26.0 - 34.0 pg LABDE SCAN MCHC (External) 35.1 32.0 - 36.0 g/dL LABDE SCAN RDW (External) 15.2 11.5 - 15.5 % LABDE SCAN Platelet Count (External) 140 140 - 440 thou/cu mm LABDE SCAN Blood specimen (specimen) 09/06/2017 8:38 AM CDT Narrative SAMANTHA PFT - 09/07/2017 7:21 AM CDT Verified by Rhiannon Cain on 09/07/2017. Freddy Dumont MD LAB - BLOOD ORD ERABLES SAMANTHA PFT LABDE SCAN * (ABNORMAL) Hepatic panel (09/06/2017 8:38 AM CDT) Albumin (External) 4.1 3.2 - 4.6 g/dL LABDE SCAN Protein Total (External) 6.9 6.0 - 8.0 g/dL LABDE SCAN Bilirubin Total (External) 1.7(H) 0.2 - 1.2 mg/dL LABDE SCAN Bilirubin Direct (External) 0.5 0.1 - 0.5 mg/dL LABDE SCAN Alk Phosphatase (External) 94 50 - 136 IU/L LABDE SCAN ALT (External) 11 8 - 45 IU/L LABDE SCAN AST (External) 18 2 - 40 IU/L LABDE SCAN Blood specimen (specimen) 09/06/2017 8:38 AM CDT Narrative BREEZE PFT - 09/07/2017 7:21 AM CDT Verified by Rhiannon Cain on 09/07/2017. Freddy Dumont MD LAB - BLOOD ORD ERABLES Performing Organization Address City/[facility]/ZIP Co de Phone Number BREEZE PFT LABDE SCAN * Phosphorus (09/06/2017 8:38 AM CDT) Phosphorus (External) 3.9 2.3 - 4.7 mg/dL LABDE SCAN Blood specimen (specimen) 09/06/2017 8:38 AM CDT Narrative BREEZE PFT - 09/07/2017 7:21 AM CDT Verified by Rhiannon Cain on 09/07/2017. Freddy Dumont MD LAB - BLOOD ORD ERABLES Performing Organization Address [facility]/ZIP Co de Phone Number BREEZE PFT LABDE SCAN * Magnesium (09/06/2017 8:38 AM CDT) Magnesium (External) 1.8 1.6 - 2.6 mg/dL LABDE SCAN Blood specimen (specimen) 09/06/2017 8:38 AM CDT Narrative BREEZE PFT - 09/07/2017 7:21 AM CDT Verified by Rhiannon Cain on 09/07/2017. Freddy Dumont MD LAB - BLOOD ORD ERALASHAE BREEZE PFT LABDE SCAN documented in this [...] documented as of this encounter Care Teams Wrister Relationship Specialty Start Date End Date Rubén Boyle MD PCP - General Family Practice 03/08/16 Pamela Blanco NP [facility] [address] [place] [address] Referring Physician 07/13/16 Pedro Segura MD [facility] [address] [place] [address] Nephrology 10/03/16 Freddy Craft MD 516 [facility] 2[address] [place], [place] [address] Assigned Gastroenterology Provider 02/08/20 Abdifatah Van MD 717 [facility] [address] [place], [place] [address] Assigned Nephrology Provider 07/13/20 11/07/23 Nicole Carranza NP 420 [facility] [address] [place], [place] [address] Assigned Heart and Vascular Provider 01/09/22 Andressa Ruiz PA-C 420 [facility] 803 [place], [place] [address] Physician Snuff Blender Endocrinology, Diabetes, and Metabolism 03/01/22 Ashlyn Storm, RN [facility] [address] [place] [address] Registered Nurse 03/03/22 09/15/22 Rubén Gunter [facility] [address] [place] [address] Assigned MTM Pharmacist 02/27/22 Andressa Ruiz PA-C 420 [facility] 803 [place] [address] Assigned Endocrinology Provider 03/13/22 09/07/23 Suzan Harry MD [address] [place] [address] Nephrology 06/30/23 Yasmeen Powers MD 500 [place] [address] Nephrology 10/24/23 Yasmeen Powers MD [address] [place] [address] Assigned Nephrology Provider 11/08/23 documented as of this encounter
--- OUTSIDE RECORDS SUMMARY | 2023-12-15 10:10 | XMS_ITS | Encounter Summary ---
Author Organization [facility] [place] Address [address] [place] [address] Care Team Providers Care Pollution Control Technician Name Role Phone Rubén Boyle MD Primary Care Provider Pamela Blanco [facility] Unavailable Pedro Segura MD Unavailable Freddy Craft MD Unavailable Abdifatah Van MD Unavailable Nicole Carranza [facility]ACT[facility] Unavailable [phone] Andressa Ruiz-C Unavailable [phone] Ashlyn Storm RN Unavailable Rubén Gunter [facility] Unavailable Andressa Ruiz-C Unavailable Suzan Harry MD Unavailable [phone] Yasmeen Powers MD Unavailable [phone] Yasmeen Powers MD Unavailable [phone] Encounter Details Date Type Department Care Team (Latest Contact Info) Description 09/28/2017 External Order Results [facility] [address] [place] [address] History of liver transplant (H); [...] Comments TACROLIMUS BY TANDEM MASS SPECTROMETRY Routine 09/20/2017 9:17 AM CDT PHOSPHORUS Routine 09/20/2017 9:17 AM CDT MAGNESIUM Routine 09/20/2017 9:17 AM CDT History of liver transplant (H) Status post kidney transplant Long-term use of immunosuppressant medication HEPATIC FUNCTION PANEL Routine 09/20/2017 9:17 AM CDT History of liver transplant (H) Status post kidney transplant Long-term use of immunosuppressant medication BASIC METABOLIC PANEL Routine 09/20/2017 9:17 AM CDT History of liver transplant (H) Status post kidney transplant Long-term use of immunosuppressant medication CBC WITH PLATELETS Routine 09/20/2017 9: 17 AM CDT History of liver transplant (H) Status post kidney transplant Long-term use of immunosuppressant medication documented in this encounter Results * Tacrolimus level (09/20/2017 9:17 AM CDT) Tacrolimus(FK- 506) (External) 8.5 See result comment NG/Ml LABDE SCAN Blood specimen (specimen) 09/20/2017 9:17 AM CDT Narrative SAMANTHA PFT - 09/28/2017 4:46 PM CDT Verified by Melissa Otto on 09/28/2017. Patient Reported LAB - BLOOD ORDERABL ES BREEZE PFT LABDE SCAN * Phosphorus (09/20/2017 9:17 AM CDT) Phosphorus (External) 4.1 2.3 - 4.7 mg/dL LABDE SCAN Blood specimen (specimen) 09/20/2017 9:17 AM CDT Narrative BREEZE PFT - 09/28/2017 4:46 PM CDT Verified by Melissa Otto on 09/28/2017. Patient Reported LAB - BLOOD ORDERABL ES Performing Organization Address [facility] Co de Phone Number BREEZE PFT LABDE SCAN * (ABNORMAL) Basic metabolic panel (09/20/2017 9:17 AM CDT) Sodium (External) 138 135 - 145 mmol/L LABDE SCAN Potassium (External) 4.4 3.5 - 5.0 mmol/L LABDE SCAN Chloride (External) 104 98 - 110 mmol/L LABDE SCAN CO2 (External) 28 21 - 31 mmol/L LABDE SCAN Anion Gap (External) 6 5 - 18 LABDE SCAN Glucose (External) 122(H) 65 - 100 mg/dL LABDE SCAN Calcium (External) 9.0 8.5 - 10.5 mg/dL LABDE SCAN Urea Nitrogen (External) 33(H) 8 - 25 mg/dL LABDE SCAN Creatinine (External) 2.33(H) 0.72 - 1.25 mg/dL LABDE SCAN BUN/Creatinine Ratio (External) 14 10 - 20 LABDE SCAN GFR Estimated (if ) (External) 34(L) >60 ml/min/1.7 3m2 LABDE SCAN GFR Estimated (External) 28(L) >60 ml/min/1.7 3m2 LABDE SCAN Blood specimen (specimen) 09/20/2017 9:17 AM CDT Narrative EIRCKEZE PFT - 09/28/2017 4:46 PM CDT Verified by Melissa Otto on 09/28/2017. Freddy Dumont MD LAB - BLOOD ORD EDGAR SAMANTHA PFT LABDE SCAN * (ABNORMAL) CBC with platelets (09/20/2017 9:17 AM CDT) WBC Count (External) 2.6(L) 4.5 - 11.0 thou/cu mm LABDE SCAN RBC Count (External) 3.66(L) 4.30 - 5.90 mil/cu mm LABDE SCAN Hemoglobin (External) 11.8(L) 13.5 - 17.5 g/dL LABDE SCAN Hematocrit (External) 34.2(L) 37.0 - 53.0 % LABDE SCAN MCV (External) 93 80 - 100 fL LABDE SCAN MCH (External) 32.2 26.0 - 34.0 pg LABDE SCAN MCHC (External) 34.5 32.0 - 36.0 g/dL LABDE SCAN RDW (External) 15.0 11.5 - 15.5 % LABDE SCAN Platelet Count (External) 151 140 - 440 thou/cu mm LABDE SCAN Blood specimen (specimen) 09/20/2017 9:17 AM CDT Narrative SAMANTHA PFT - 09/28/2017 4:46 PM CDT Verified by Melissa Otto on 09/28/2017. Freddy Dumont MD LAB - BLOOD ORD ERABLES Performing Organization Address City/[facility]/ZIP Co de Phone Number SAMANTHA PFT LABDE SCAN * (ABNORMAL) Hepatic panel (09/20/2017 9:17 AM CDT) Albumin (External) 4.1 3.2 - 4.6 g/dL LABDE SCAN Protein Total (External) 7.0 6.0 - 8.0 g/dL LABDE SCAN Bilirubin Total (External) 1.4(H) 0.2 - 1.2 mg/dL LABDE SCAN Bilirubin Direct (External) 0.5 0.1 - 0.5 mg/dL LABDE SCAN Alk Phosphatase (External) 99 50 - 136 IU/L LABDE SCAN ALT (External) 10 8 - 45 IU/L LABDE SCAN AST (External) 19 2 - 40 IU/L LABDE SCAN Blood specimen (specimen) 09/20/2017 9:17 AM CDT Narrative BREEZE PFT - 09/28/2017 4:46 PM CDT Verified by Melissa Otto on 09/28/2017. Freddy Dumont MD LAB - BLOOD ORD ERABLES BREEZE PFT LABDE SCAN * Magnesium (09/20/2017 9:17 AM CDT) Magnesium (External) 2.2 1.6 - 2.6 mg/dL LABDE SCAN Blood specimen (specimen) 09/20/2017 9:17 AM CDT Narrative BREEZE PFT - 09/28/2017 4:46 PM CDT Verified by Melissa Otto on 09/28/2017. Freddy Dumont MD LAB - BLOOD ORD [...] documented as of this encounter Care Teams Pollution Control Technician Relationship Specialty Start Date End Date Rubén Boyle MD PCP - General Family Practice 03/08/16 Pamela Blanco NP [facility] [address] [place] [address] Referring Physician 07/13/16 Pedro Segura MD [facility] [place] [address] [place] [address] Nephrology 10/03/16 Freddy Craft MD [address] [facility] [place], [place] [address] Assigned Gastroenterology Provider 02/08/20 Abdifatah Van MD [address]17 [facility] [address] [place], [place] [address] Assigned Nephrology Provider 07/13/20 11/07/23 Nicole Carranza NP 420 [facility] 508 [place], [place] [address] Assigned Heart and Vascular Provider 01/09/22 Andressa Ruiz PA-C 420 [facility] 803 [place] [address] Physician Wind Operations Manager Endocrinology, Diabetes, and Metabolism 03/01/22 Ashlyn Storm RN [facility] 7[address] [place], [place] 8[address] Registered Nurse 03/03/22 09/15/22 Rubén Gunter [facility] [address] [place] [address] Assigned MTM Pharmacist 02/27/22 Andressa Ruiz PA-C 420 [facility] 803 [place], [place] [address] Assigned Endocrinology Provider 03/13/22 09/07/23 Suzan Harry MD 420 [place], [place] [address] Nephrology 06/30/23 Yasmeen Powers MD 500 [place], [place] [address] Nephrology 10/24/23 Yasmeen Powers MD [address] [place], [place] [address] Assigned Nephrology Provider 11/08/23 documented as of this encounter
--- OUTSIDE RECORDS SUMMARY | 2023-12-15 10:10 | XMS_ITS | Encounter Summary ---
Author Organization [facility] Address [address] [place] [address] Care Team Providers Care Adaptive Physical Education Teacher Name Role Phone Rubén Boyle MD Primary Care Provider Pamela Blanco [facility] Unavailable Pedro Segura MD Unavailable Freddy Craft MD Unavailable Abdifatah Van MD Unavailable Nicole Carranza [facility] Unavailable [phone] Andressa Ruiz-C Unavailable Ashlyn Storm RN Unavailable [phone] Rubén Gunter [facility] Unavailable Andressa Ruiz-C Unavailable Suzan Harry MD Unavailable [phone] Yasmeen Powers MD Unavailable [phone] Yasmeen Powers MD Unavailable [phone] Encounter Details Date Type Department Care Team (Latest Contact Info) Description 06/28/2017 External Order Results [facility] [address] [place] [address] 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); 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 transplant; 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 Social History Tobacco Use [...] Comments TACROLIMUS BY TANDEM MASS SPECTROMETRY Routine 06/20/2017 9:30 AM ELECTRONIC NEWS GATHERING CAMERA PERSON 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) 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 transplant group home use of drug PHOSPHORUS Routine 06/20/2017 9:30 AM ELECTRONIC NEWS GATHERING CAMERA PERSON 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) 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 transplant group home use of drug MAGNESIUM Routine 06/20/2017 9:30 AM ELECTRONIC NEWS GATHERING CAMERA PERSON 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) 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 transplant group home use of drug HEPATIC FUNCTION PANEL Routine 06/20/2017 9:30 AM ELECTRONIC NEWS GATHERING CAMERA PERSON 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) 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 transplant group home use of drug BASIC METABOLIC PANEL Routine 06/20/2017 9:30 AM ELECTRONIC NEWS GATHERING CAMERA PERSON 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) 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 Freddy Dumont MD LAB - BLOOD ORD ERABLES Performing Organization Address [facility]/ZIP Co de Phone Number BREEZE PFT LABDE SCAN * Hepatic panel (Albumin, ALT, AST, Bili, Alk Phos, TP) (06/20/2017 9:30 AM ELECTRONIC NEWS GATHERING CAMERA PERSON) Albumin (External) 4.0 3.2 - 4.6 g/dL LABDE SCAN Protein Total (External) 6.6 6.0 - 8.0 g/dl LABDE SCAN Bilirubin Total (External) 1.0 0.2 - 1.2 mg/dL LABDE SCAN Bilirubin Direct (External) 0.4 0.1 - 0.5 mg/dL LABDE SCAN Alk Phosphatase (External) 102 50 - 136 IU/L LABDE SCAN ALT (External) 14 8 - 45 Viktoria/L LABDE SCAN AST (External) 20 2 - 40 IU/L LABDE SCAN Blood specimen (specimen) 06/20/2017 9:30 AM ELECTRONIC NEWS GATHERING CAMERA PERSON Narrative BREEZE PFT - 06/28/2017 2:01 PM CDT Verified by Rhiannon Cain on 06/28/2017. Freddy Dumont MD LAB - BLOOD ORD ERABLES Performing Organization Address [facility] Co de Phone Number BREEZE PFT LABDE SCAN * (ABNORMAL) Phosphorus (06/20/2017 9:30 AM ELECTRONIC NEWS GATHERING CAMERA PERSON) Phosphorus (External) 4.9(H) 2.3 - 4.7 mg/dL LABDE SCAN Blood specimen (specimen) 06/20/2017 9:30 AM ELECTRONIC NEWS GATHERING CAMERA PERSON Narrative BREEZE PFT - 06/28/2017 2:01 PM CDT Verified by Rhiannon Cain on 06/28/2017. Freddy Dumont MD LAB - BLOOD ORD ERALASHAE BREEZE PFT LABDE SCAN * Magnesium (06/20/2017 9:30 AM ELECTRONIC NEWS GATHERING CAMERA PERSON) Magnesium (External) 1.9 1.6 - 2.0 mg/dL LABDE SCAN Blood specimen (specimen) 06/20/2017 9:30 AM ELECTRONIC NEWS GATHERING CAMERA PERSON Subhash SUAREZEZE PFT - 06/28/2017 2:01 PM CDT Verified by Rhiannon Cain on 06/28/2017. Freddy Dumont MD LAB - BLOOD ORD ERABLES ERICKEZE PFT LABDE SCAN * (ABNORMAL) Basic metabolic panel (06/20/2017 9:30 AM ELECTRONIC NEWS GATHERING CAMERA PERSON) Sodium (External) 137 135 - 145 mmol/L LABDE SCAN Potassium (External) 4.8 3.5 - 5.0 mmol/L LABDE SCAN Chloride (External) 101 98 - 110 mmol/L LABDE SCAN CO2 (External) 30 21 - 31 mmol/L LABDE SCAN Anion Gap (External) 6 5 - 18 LABDE SCAN Glucose (External) 140(H) 65 - 100 mg/dL LABDE SCAN Calcium (External) 9.4 8.5 - 10.5 mg/dL LABDE SCAN Urea Nitrogen (External) 31(H) 8.5 - 25 mg/dL LABDE SCAN Creatinine (External) 2.00(H) 0.72 - 1.25 mg/dL LABDE SCAN BUN/Creatinine Ratio (External) 16 10 - 20 LABDE SCAN GFR Estimated (if ) (External) 41(L) >60 ml/min/1.7 3 m2 LABDE SCAN GFR Estimated (External) 34(L) >60 ml/min/1.7 3 m2 LABDE SCAN Blood specimen (specimen) 06/20/2017 9:30 AM ELECTRONIC NEWS GATHERING CAMERA PERSON Narrative SAMANTHA PFT - 06/28/2017 2:01 PM CDT Verified by Rhiannon Cain on 06/28/2017. Freddy Dumont MD LAB - BLOOD ORD ERABLES ERICKEZE PFT LABDE SCAN * (ABNORMAL) CBC with platelets (06/20/2017 9:30 AM ELECTRONIC NEWS GATHERING CAMERA PERSON) WBC Count (External) 2.4(L) 4.5 - 11.0 thou/cu mm LABDE SCAN RBC Count (External) 3.93(L) 4.30 - 5.90 mil/cu mm LABDE SCAN Hemoglobin (External) 11.8(L) 13.5 - 17.5 g/dL LABDE SCAN Hematocrit (External) 35.0(L) 37.0 - 53.0 % LABDE SCAN MCV (External) 89 80 - 100 fL LABDE SCAN MCH (External) 30.0 26.0 - 34.0 pg LABDE SCAN MCHC (External) 33.7 32.0 - 36.0 g/dL LABDE SCAN RDW (External) 14.9 11.5 - 16.5 % LABDE SCAN Platelet Count (External) 151 140 - 440 thou/cu mm LABDE SCAN Blood specimen (specimen) 06/20/2017 9:30 AM ELECTRONIC NEWS GATHERING CAMERA PERSON Narrative AMNAKayli PFT - 06/28/2017 2:01 PM CDT Verified by Rhiannon Cain on 06/28/2017. Freddy Dumont MD LAB - BLOOD ORD ERABLES BRECARISA PFT LABDE SCAN documented in this encounter Visit Diagnoses Diagnosis 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) Liver replaced by transplant 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 transplant group home use of drug Encounter for long-term (current) use of other medications documented in this encounter Additional Health Concerns Infection Onset Date Last Indicated Resolved Time 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/16 urine, 07/10/16 rectal swab 06/21/2016 06/21/2016 documented as of this encounter Care Teams Adaptive Physical Education Teacher Relationship Specialty Start Date End Date Rubén Boyle MD PCP - General Family Practice 03/08/16 Pamela Blanco NP [facility] [address] [place] [address] Referring Physician 07/13/16 Pedro Segura MD [facility] [address] [place], [place] [address] Nephrology 10/03/16 Freddy Craft MD [address] [facility] [place], [place] [address] Assigned Gastroenterology Provider 02/08/20 Abdifatah Van MD [address] [facility] [address] [place], [place] [address] Assigned Nephrology Provider 07/13/20 11/07/23 Nicole Carranza NP 420 [facility] 508 [place], [place] [address] Assigned Heart and Vascular Provider 01/09/22 Andressa Ruiz PA-C 420 [facility] 803 [place], [place] [address] Physician Pullman Car Repairer Endocrinology, Diabetes, and Metabolism 03/01/22 Ashlyn Storm RN [facility] 711 [place], [place] [address] Registered Nurse 03/03/22 09/15/22 Rubén Gunter [facility] 9[address] [facility] [address] [place], [place] [address] Assigned MTM Pharmacist 02/27/22 Andressa Ruiz PA-C 420 [facility] 803 [place] [address] Assigned Endocrinology Provider 03/13/22 09/07/23 Suzan Harry MD [address] [place] [address] Nephrology 06/30/23 Yasmeen Powers MD 500 [place] [address] Nephrology 10/24/23 Yasmeen Powers MD [address] [place] [address] Assigned Nephrology Provider 11/08/23 documented as of this encounter
--- OUTSIDE RECORDS SUMMARY | 2023-12-15 10:10 | XMS_ITS | Encounter Summary ---
Author Organization [facility] Address [address] [place] [address] Care Team Providers Care Immigration Paralegal Name Role Phone Rubén Boyle MD Primary Care Provider Pamela Blanco [employer]IGH [employer]CHOOL PHYSICAL EDUCATION TEACHER Unavailable Pedro Segura MD Unavailable Freddy rCaft MD Unavailable [phone] Abdifatah Van MD Unavailable Nicole Carranza HIGH SCHOOL PHYSICAL EDUCATION TEACHER Unavailable [phone] Andressa Ruiz-C Unavailable Ashlyn Storm RN Unavailable Rubén Gunter [facility] Unavailable Andressa Ruiz-C Unavailable Suzan Harry MD Unavailable [phone] Yasmeen Powers MD Unavailable [phone] Yasmeen Powers MD Unavailable [phone] Encounter Details Date Type Department Care Team (Latest Contact Info) Description 11/04/2017 External Order Results [facility] [address] [place] [address] History of liver transplant (H); [...] Comments TACROLIMUS BY TANDEM MASS SPECTROMETRY Routine 11/04/2017 9:16 AM CDT History of liver transplant (H) Status post kidney transplant Long-term use of immunosuppressant medication PHOSPHORUS Routine 11/04/2017 9:16 AM CDT History of liver transplant (H) Status post kidney transplant Long-term use of immunosuppressant medication MAGNESIUM Routine 11/04/2017 9:16 AM CDT History of liver transplant (H) Status post kidney transplant Long-term use of immunosuppressant medication HEPATIC FUNCTION PANEL Routine 11/04/2017 9:16 AM CDT History of liver transplant (H) Status post kidney transplant Long-term use of immunosuppressant medication BASIC METABOLIC PANEL Routine 11/04/2017 9:16 AM CDT History of liver transplant (H) Status post kidney transplant Long-term use of immunosuppressant medication CBC WITH PLATELETS Routine 11/04/2017 9: 16 AM CDT History of liver transplant (H) Status post kidney transplant Long-term use of immunosuppressant medication documented in this encounter Results * Tacrolimus level (11/04/2017 9:16 AM CDT) Tacrolimus(FK-5 06) (External) 7.3 ng/mL LABDE SCAN Tacrolimus Last Dose (External) 11/03/2017 8:00 PM LABDE SCAN Blood specimen (specimen) 11/04/2017 9:16 AM CDT Narrative BREEZE PFT - 11/07/2017 3:31 PM CDT Verified by Rhiannon Cain on 11/07/2017. Freddy Dumont MD LAB - BLOOD ORD ERABLES [facility] PFT LABDE SCAN * Phosphorus (11/04/2017 9:16 AM CDT) Phosphorus (External) 3.8 2.3 - 4.7 mg/dL LABDE SCAN Blood specimen (specimen) 11/04/2017 9:16 AM CDT Narrative BREEZE PFT - 11/07/2017 8:39 AM CDT Verified by Myrna Monreal on 11/07/2017. Freddy Dumont MD LAB - BLOOD ORD ERALASHAE Performing Organization Address [facility] Co de Phone Number BREEZE PFT LABDE SCAN * Magnesium (11/04/2017 9:16 AM CDT) Magnesium (External) 2.2 1.6 - 2.6 mg/dL LABDE SCAN Blood specimen (specimen) 11/04/2017 9:16 AM CDT Narrative BREEZE PFT - 11/07/2017 8:39 AM CDT Verified by Myrna Monreal on 11/07/2017. Freddy Dumont MD LAB - BLOOD ORD ERALASHAE Performing Organization Address City/[facility]/ZIP Co de Phone Number BREEZE PFT LABDE SCAN * (ABNORMAL) Hepatic panel (11/04/2017 9:16 AM CDT) Albumin (External) 4.3 3.2 - 4.6 g/dL LABDE SCAN Protein Total (External) 7.2 6.0 - 8.0 g/dL LABDE SCAN Bilirubin Total (External) 1.4(H) 0.2 - 1.2 mg/dL LABDE SCAN Bilirubin Direct (External) 0.4 0.1 - 0.5 mg/dL LABDE SCAN Alk Phosphatase (External) 92 50 - 136 IU/L LABDE SCAN ALT (External) 9 8 - 45 IU/L LABDE SCAN AST (External) 15 2 - 40 IU/L LABDE SCAN Blood specimen (specimen) 11/04/2017 9:16 AM CDT Narrative BREEZE PFT - 11/07/2017 8:39 AM CDT Verified by Myrna Monreal on 11/07/2017. Freddy Dumont MD LAB - BLOOD ORD ERABLES [facility]ZE PFT LABDE SCAN * (ABNORMAL) CBC with platelets (11/04/2017 9:16 AM CDT) WBC Count (External) 2.6(L) 4.5 - 11.0 thou/cu mm LABDE SCAN RBC Count (External) 3.60(L) 4.30 - 5.90 mil/cu mm LABDE SCAN Hemoglobin (External) 11.8(L) 13.5 - 17.5 g/dL LABDE SCAN Hematocrit (External) 33.4(L) 37.0 - 53.0 % LABDE SCAN MCV (External) 93 80 - 100 fL LABDE SCAN MCH (External) 32.8 26.0 - 34.0 pg LABDE SCAN MCHC (External) 35.3 32.0 - 36.0 g/dL LABDE SCAN RDW (External) 13.9 11.5 - 15.5 % LABDE SCAN Platelet Count (External) 131(L) 140 - 440 thou/cu mm LABDE SCAN Blood specimen (specimen) 11/04/2017 9:16 AM CDT Narrative BREEZE PFT - 11/07/2017 8:39 AM CDT Verified by Myrna Monreal on 11/07/2017. Freddy Dumont MD LAB - BLOOD ORD ERALASHAE [facility] PFT LABDE SCAN * (ABNORMAL) Basic metabolic panel (11/04/2017 9:16 AM CDT) Sodium (External) 141 135 - 145 mmol/L LABDE SCAN Potassium (External) 4.6 3.5 - 5.0 mmol/L LABDE SCAN Chloride (External) 106 98 - 110 mmol/L LABDE SCAN CO2 (External) 28 21 - 31 mmol/L LABDE SCAN Anion Gap (External) 7 5 - 18 LABDE SCAN Glucose (External) 146(H) 65 - 100 mg/dL LABDE SCAN Calcium (External) 9.5 8.5 - 10.5 mg/dL LABDE SCAN Urea Nitrogen (External) 36(H) 8 - 25 mg/dL LABDE SCAN Creatinine (External) 2.46(H) 0.72 - 1.25 mg/dL LABDE SCAN BUN/Creatinine Ratio (External) 15 10 - 20 LABDE SCAN GFR Estimated (if ) (External) 32(L) >60 ml/min/1.7 3m2 LABDE SCAN GFR Estimated (External) 27(L) >60 ml/min/1.7 3m2 LABDE SCAN Blood specimen (specimen) 11/04/2017 9:16 AM CDT Narrative SAMANTHA PFT - 11/07/2017 8:39 AM CDT Verified by Myrna Monreal on 11/07/2017. Freddy Dumont MD LAB - BLOOD ORD [...] documented as of this encounter Care Teams Immigration Paralegal Relationship Specialty Start Date End Date Rubén Boyle MD PCP - General Family Practice 03/08/16 Pamela Blanco NP [address] [place] [address] Referring Physician 07/13/16 Pedro Segura MD [facility] [address] [place] [address] Nephrology 10/03/16 Freddy Craft MD 516 [facility] [address] [place], [place] [address] Assigned Gastroenterology Provider 02/08/20 Abdifatah Van MD [address] [facility] [address] [place], [place] [address] Assigned Nephrology Provider 07/13/20 11/07/23 Nicole Carranza NP 420 [facility] 508 [place], [place] [address] Assigned Heart and Vascular Provider 01/09/22 Andressa Ruiz PA-C 420 [facility] 803 [place], [place] [address] Physician Radiographer Angiogram Endocrinology, Diabetes, and Metabolism 03/01/22 Ashlyn Storm, RN [facility] [address] [place], [place] [address] Registered Nurse 03/03/22 09/15/22 Rubén Gunter [facility] [address] [place] [id number] Assigned MTM Pharmacist 02/27/22 Andressa Ruiz PA-C 420 [facility] 803 [place] [address] Assigned Endocrinology Provider 03/13/22 09/07/23 Suzan Harry MD [address] [place] [address] Nephrology 06/30/23 Yasmeen Powers MD 500 [place] [address] Nephrology 10/24/23 Yasmeen Powers MD [address] [place] [address] Assigned Nephrology Provider 11/08/23 documented as of this encounter
--- OUTSIDE RECORDS SUMMARY | 2023-12-15 10:11 | XMS_ITS | Encounter Summary ---
Author Organization [facility] Address [address] [place] [address] Care Team Providers Care Roentgenologist Name Role Phone Ruébn Boyle MD Primary Care Provider Pamela Blanco MANAGING PARTNER Unavailable Pedro Segura MD Unavailable [phone] Freddy Craft MD Unavailable [phone] Abdifatah Van MD Unavailable Nicole Carranza MANAGING PARTNER Unavailable [phone] Andressa Ruiz-C Unavailable Ashlyn Storm RN Unavailable Rubén Gunter [facility] Unavailable Andressa Ruiz-C Unavailable [phone] Suzan Harry MD Unavailable [phone] Yasmeen Powers MD Unavailable [phone] Yasmeen Powers MD Unavailable [phone] Encounter Details Date Type Department Care Team (Latest Contact Info) Description 04/22/2017 External Order Results [facility] [address] [place] [address] Long-term use of immunosuppressant medication; [...] Comments TACROLIMUS BY TANDEM MASS SPECTROMETRY Routine 04/19/2017 9:45 AM DIRECTOR BIOLOGY Long-term use of immunosuppressant medication 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) documented in this encounter Results * (ABNORMAL) Tacrolimus level (04/19/2017 9:45 AM DIRECTOR BIOLOGY) Tacrolimus(FK-5 06) (External) 4.7(L) 5 - 8 ng/mL LABDE SCAN Blood specimen (specimen) 04/19/2017 9:45 AM DIRECTOR BIOLOGY Narrative SAMANTHA PFT - 04/22/2017 1:14 PM DIRECTOR BIOLOGY Verified by Rhiannon Cain on 04/22/2017. Aime Vu MD LAB - BLOOD ORDERA [...] documented as of this encounter Care Teams Roentgenologist Relationship Specialty Start Date End Date Rubén Boyle MD PCP - General Family Practice 03/08/16 Pamela Blanco NP [facility] [address] [place] [address] Referring Physician 07/13/16 Pedro Segura MD [facility] [address] [place] [address] Nephrology 10/03/16 Freddy Craft MD 516 [facility] [address] [place], [place] [address] Assigned Gastroenterology Provider 02/08/20 Abdifatah Van MD 717 [facility] [address] [place] [address] Assigned Nephrology Provider 07/13/20 11/07/23 Nicole Carranza NP 420 [facility] 508 [place], [place] [address] Assigned Heart and Vascular Provider 01/09/22 Andressa Ruiz PA-C 420 [facility] 8[address] [place], [place] [address] Physician Cranberry Grower Endocrinology, Diabetes, and Metabolism 03/01/22 Ashlyn Storm, RN [facility] [address] [place] [address] Registered Nurse 03/03/22 09/15/22 Rubén Gunter [facility] [address] [place], [place] [address] Assigned MTM Pharmacist 02/27/22 Andressa Ruiz PA-C 420 [facility] 8[address] [place] [address] Assigned Endocrinology Provider 03/13/22 09/07/23 Suzan Harry MD 420 [place] [address] Nephrology 06/30/23 Yasmeen Powers MD 500 [place] [address] Nephrology 10/24/23 Yasmeen Powers MD [address] [place] [address] Assigned Nephrology Provider 11/08/23 documented as of this encounter
--- OUTSIDE RECORDS SUMMARY | 2023-12-15 10:11 | XMS_ITS | Encounter Summary ---
Author Organization [facility] Address [address] [place] [address] Care Team Providers Care Help Desk Intern Name Role Phone Rubén Boyle MD Primary Care Provider Pamela Blanco FARMWORKER DIVERSIFIED CROPS Unavailable Pedro Segura MD Unavailable Freddy Craft MD Unavailable Abdifatah Van MD Unavailable Nicole Carranza FARMWORKER DIVERSIFIED CROPS Unavailable [phone] Andressa Ruiz-C Unavailable [phone] Ashlyn Storm RN Unavailable [phone] Rubén Gunter [facility] Unavailable Andressa Ruiz-C Unavailable Suzan Harry MD Unavailable [phone] Yasmeen Powers MD Unavailable [phone] Yasmeen Powers MD Unavailable [phone] Encounter Details Date Type Department Care Team (Latest Contact Info) Description 04/21/2017 External Order Results [facility] [address] [place] [address] Long-term use of immunosuppressant medication; [...] Priority Date/Time Associated Diagnosis Comments PHOSPHORUS Routine 04/19/2017 9:45 AM AIR ANALYSIS TECHNICIAN Long-term use of immunosuppressant medication 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) MAGNESIUM Routine 04/19/2017 9:45 AM AIR ANALYSIS TECHNICIAN Long-term use of immunosuppressant medication 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) HEPATIC FUNCTION PANEL Routine 04/19/2017 9:45 AM AIR ANALYSIS TECHNICIAN Long-term use of immunosuppressant medication 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) BASIC METABOLIC PANEL Routine 04/19/2017 9:45 AM AIR ANALYSIS TECHNICIAN Long-term use of immunosuppressant medication 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) CBC WITH PLATELETS Routine 04/19/2017 9: 45 AM AIR ANALYSIS TECHNICIAN Long-term use of immunosuppressant medication 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) documented in this encounter Results * Phosphorus (04/19/2017 9:45 AM AIR ANALYSIS TECHNICIAN) Phosphorus (External) 2.7 2.3 - 4.7 mg/dL LABDE SCAN Blood specimen (specimen) 04/19/2017 9:45 AM AIR ANALYSIS TECHNICIAN Narrative SAMANTHA PFT - 04/21/2017 2:28 PM AIR ANALYSIS TECHNICIAN Verified by Myrna Monreal on 04/21/2017. Aime Vu MD LAB - BLOOD ORDERA BLES SAMANTHA PFT LABDE SCAN * (ABNORMAL) Magnesium (04/19/2017 9:45 AM AIR ANALYSIS TECHNICIAN) Magnesium (External) 1.5(L) 1.6 - 2.6 mg/dL LABDE SCAN Blood specimen (specimen) 04/19/2017 9:45 AM AIR ANALYSIS TECHNICIAN [facility] ERICKE PFT - 04/21/2017 2:28 PM AIR ANALYSIS TECHNICIAN Verified by Myrna Monreal on 04/21/2017. Aime Vu MD LAB - BLOOD ORDERA BLES Performing Organization Address [facility] de Phone Number [facility] PFT LABDE SCAN * Hepatic panel (04/19/2017 9:45 AM AIR ANALYSIS TECHNICIAN) Albumin (External) 3.9 3.2 - 4.6 g/dL LABDE SCAN Protein Total (External) 6.1 6.0 - 8.0 g/dL LABDE SCAN Bilirubin Total (External) 0.8 0.2 - 1.2 mg/dL LABDE SCAN Bilirubin Direct (External) 0.4 0.1 - 0.5 mg/dL LABDE SCAN Alk Phosphatase (External) 136 50 - 136 IU/L LABDE SCAN ALT (External) 14 8 - 45 IU/L LABDE SCAN AST (External) 22 2 - 40 IU/L LABDE SCAN Blood specimen (specimen) 04/19/2017 9:45 AM AIR ANALYSIS TECHNICIAN [facility] PFT - 04/21/2017 2:28 PM AIR ANALYSIS TECHNICIAN Verified by Myrna Monreal on 04/21/2017. Aime Vu MD LAB - BLOOD ORDERA BLEMarkel Performing Organization Address [facility] Co de Phone Number [facility] LABDE SCAN * (ABNORMAL) CBC with platelets (04/19/2017 9:45 AM AIR ANALYSIS TECHNICIAN) WBC Count (External) 2.7(L) 4.5 - 11.0 thou/cu mm LABDE SCAN RBC Count (External) 4.45 4.30 - 5.90 mil/cu mm LABDE SCAN Hemoglobin (External) 12.4(L) 13.5 - 17.5 g/dL LABDE SCAN Hematocrit (External) 37.2 37.0 - 53.0 % LABDE SCAN MCV (External) 84 80 - 100 fL LABDE SCAN MCH (External) 27.9 26.0 - 34.0 pg LABDE SCAN MCHC (External) 33.3 32.0 - 36.0 g/dL LABDE SCAN RDW (External) 16.0(H) 11.5 - 15.5 % LABDE SCAN Platelet Count (External) 129(L) 140 - 440 thou/cu mm LABDE SCAN Blood specimen (specimen) 04/19/2017 9:45 AM AIR ANALYSIS TECHNICIAN Narrative AMNAE PFT - 04/21/2017 2:28 PM AIR ANALYSIS TECHNICIAN Verified by Myrna Monreal on 04/21/2017. Aime Vu MD LAB - BLOOD ORDERA BLES SAMANTHA PFT LABDE SCAN * (ABNORMAL) Basic metabolic panel (04/19/2017 9:45 AM AIR ANALYSIS TECHNICIAN) Sodium (External) 136 135 - 145 mmol/L LABDE SCAN Potassium (External) 5.3(H) 3.5 - 5.0 mmol/L LABDE SCAN Chloride (External) 109 98 - 110 mmol/L LABDE SCAN CO2 (External) 20(L) 21 - 31 mmol/L LABDE SCAN Anion Gap (External) 7 5 - 18 LABDE SCAN Glucose (External) 140(H) 65 - 100 mg/dL LABDE SCAN Calcium (External) 8.8 8.5 - 10.5 mg/dL LABDE SCAN Urea Nitrogen (External) 21 8 - 25 mg/dL LABDE SCAN Creatinine (External) 1.37(H) 0.72 - 1.25 mg/dL LABDE SCAN BUN/Creatinine Ratio (External) 15 10 - 20 LABDE SCAN GFR Estimated (if ) (External) >60 >60 ml/min/1.7 3m2 LABDE SCAN GFR Estimated (External) 52(L) >60 ml/min/1.7 3m2 LABDE SCAN Blood specimen (specimen) 04/19/2017 9:45 AM AIR ANALYSIS TECHNICIAN Narrative BREEZE PFT - 04/21/2017 2:28 PM AIR ANALYSIS TECHNICIAN Verified by Myrna Monreal on 04/21/2017. Aime Vu MD LAB - BLOOD ORDERA [...] documented as of this encounter Care Teams Help Desk Intern Relationship Specialty Start Date End Date Rubén Boyle MD PCP - General Family Practice 03/08/16 Pamela Blanco FARMWORKER DIVERSIFIED CROPS [facility] [address] [place], [place] [address] Referring Physician 07/13/16 Pedro Segura MD [facility] [address] [place], [place] [address] Nephrology 10/03/16 Freddy Craft MD 516 [facility] [address] [place] [address] Assigned Gastroenterology Provider 02/08/20 Abdifatah Van MD 717 [facility] [address] [place] [address] Assigned Nephrology Provider 07/13/20 11/07/23 Nicole Carranza NP 420 [facility] [address] [place] [address] Assigned Heart and Vascular Provider 01/09/22 Andressa Ruiz PA-C 420 [facility] 803 [place] [address] Physician Campus Ambassador Endocrinology, Diabetes, and Metabolism 03/01/22 Ashlyn Storm, RN [facility] [address] [place] [address] Registered Nurse 03/03/22 09/15/22 Rubén Gunter [facility] [address] [place] [address] Assigned MTM Pharmacist 02/27/22 Andressa Ruiz PA-C 420 [facility] 803 [place] [address] Assigned Endocrinology Provider 03/13/22 09/07/23 Suzan Harry MD [address] [place] [address] Nephrology 06/30/23 Yasmeen Powers MD 500 [place] [address] Nephrology 10/24/23 Yasmeen Powers MD [address] [place] [address] Assigned Nephrology Provider 11/08/23 documented as of this encounter
--- OUTSIDE RECORDS SUMMARY | 2023-12-15 10:11 | XMS_ITS | Encounter Summary ---
Author Organization [facility] Address [address] [place] [address] Care Team Providers Care Forest Manager Name Role Phone Rubén Boyle MD Primary Care Provider Pamela Blanco ASSISTANT MEN'S LACROSSE COACH Unavailable Pedro Segura MD Unavailable [phone] Freddy Craft MD Unavailable Abdifatah Van MD Unavailable iNcole Carranza ASSISTANT M[employer] LACROSSE COACH Unavailable [phone] Andressa Ruiz-C Unavailable Ashlyn Storm RN Unavailable Rubén Gunter [facility] Unavailable Andressa Ruiz-C Unavailable Suzan Harry MD Unavailable [phone] Yasmeen Powers MD Unavailable [phone] Yasmeen Powers MD Unavailable [phone] Encounter Details Date Type Department Care Team (Late st Contact Info) Description 03/23/2017 [facility] [address] [place] [address] Christina Joseph RN Social History Tobacco Use Types Packs/Day [...] documented as of this encounter Care Teams Forest Manager Relationship Specialty Start Date End Date Rubén Boyle MD PCP - General Family Practice 03/08/16 Pamela Blanco NP [facility] [address] [place], [place] [address] Referring Physician 07/13/16 Pedro Segura MD [facility] [address] [place], [place] [address] Nephrology 10/03/16 Freddy Craft MD 516 [facility] [address] [place], [place] [address] Assigned Gastroenterology Provider 02/08/20 Abdifatah Van MD 717 [facility] [address] [place] [address] Assigned Nephrology Provider 07/13/20 11/07/23 Nicole Carranza NP 420 [facility] [address] [place] [address] Assigned Heart and Vascular Provider 01/09/22 Andressa Ruiz PA-C 420 [facility] 803 [place] [address] Physician Foreman Or Supervisor And Operator Endocrinology, Diabetes, and Metabolism 03/01/22 Ashlyn Storm, RN [facility] [address] [place] [address] Registered Nurse 03/03/22 09/15/22 Rubén Gunter [facility] [address] [place] [address] Assigned MTM Pharmacist 02/27/22 Andressa Ruiz PA-C 420 [facility] 803 [place] [address] Assigned Endocrinology Provider 03/13/22 09/07/23 Suzan Harry MD 420 [place] [address] Nephrology 06/30/23 Yasmeen Powers MD 500 [place] [address] Nephrology 10/24/23 Yasmeen Powers MD [address] [place] [address] Assigned Nephrology Provider 11/08/23 documented as of this encounter
--- OUTSIDE RECORDS SUMMARY | 2023-12-15 10:11 | XMS_ITS | Encounter Summary ---
Author Organization [place] Address [address] [place] [address] Care Team Providers Care Hide Salter Name Role Phone Rubén Boyle MD Primary Care Provider Pamela Blanco SURGICAL SERVICES DIRECTOR Unavailable Pedro Segura MD Unavailable Freddy Craft MD Unavailable Abdifatah Van MD Unavailable Nicole Carranza SURGICAL SERVICES DIRECTOR Unavailable [phone] Andressa Ruiz-C Unavailable Ashlyn Storm RN Unavailable [phone] Rubén Gunter [facility] Unavailable Andressa Ruiz-C Unavailable Suzan Harry MD Unavailable [phone] Yasmeen Powers MD Unavailable [phone] Yasmeen Powers MD Unavailable [phone] Encounter Details Date Type Department Care Team (Latest Contact Info) Description 04/14/2017 External Order Results [facility] [address] [place] [address] Long-term use of immunosuppressant medication; [...] Priority Date/Time Associated Diagnosis Comments PHOSPHORUS Routine 04/12/2017 8:32 AM MANAGER OUTPATIENT Long-term use of immunosuppressant medication 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) MAGNESIUM Routine 04/12/2017 8:32 AM MANAGER OUTPATIENT Long-term use of immunosuppressant medication 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) HEPATIC FUNCTION PANEL Routine 04/12/2017 8:32 AM MANAGER OUTPATIENT Long-term use of immunosuppressant medication 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) BASIC METABOLIC PANEL Routine 04/12/2017 8:32 AM MANAGER OUTPATIENT Long-term use of immunosuppressant medication 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) CBC WITH PLATELETS Routine 04/12/2017 8: 32 AM MANAGER OUTPATIENT Long-term use of immunosuppressant medication 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) documented in this encounter Results * (ABNORMAL) Phosphorus (04/12/2017 8:32 AM MANAGER OUTPATIENT) Phosphorus (External) 2.1(L) 2.3 - 4.7 mg/dL LABDE SCAN Blood specimen (specimen) 04/12/2017 8:32 AM MANAGER OUTPATIENT Narrative AMNAKayli PFT - 04/14/2017 8:49 AM MANAGER OUTPATIENT Verified by Myrna Monreal on 04/14/2017. Aime Vu MD LAB - BLOOD ORDERA BLEMarkel ERICKCARISA PFT LABDE SCAN * Magnesium (04/12/2017 8:32 AM MANAGER OUTPATIENT) Magnesium (External) 1.9 1.6 - 2.6 mg/dL LABDE SCAN Blood specimen (specimen) 04/12/2017 8:32 AM MANAGER OUTPATIENT Narrative BREEZE PFT - 04/14/2017 8:49 AM MANAGER OUTPATIENT Verified by Myrna Monreal on 04/14/2017. Aime Vu MD LAB - BLOOD ORDERA BLES Performing Organization Address [facility] Co de Phone Number [facility] LABDE SC[facility] * Hepatic panel (04/12/2017 8:32 AM MANAGER OUTPATIENT) Albumin (External) 4.0 3.2 - 4.6 g/dL LABDE SCAN Protein Total (External) 6.2 6.0 - 8.0 g/dL LABDE SCAN Bilirubin Total (External) 1.2 0.2 - 1.2 mg/dL LABDE SCAN Bilirubin Direct (External) 0.5 0.1 - 0.5 mg/dL LABDE SCAN Alk Phosphatase (External) 110 50 - 136 IU/L LABDE SCAN ALT (External) 16 8 - 45 IU/L LABDE SCAN AST (External) 17 2 - 40 IU/L LABDE SCAN Blood specimen (specimen) 04/12/2017 8:32 AM MANAGER OUTPATIENT Narrative AMNAE PFT - 04/14/2017 8:48 AM MANAGER OUTPATIENT Verified by Myrna Monreal on 04/14/2017. Aime Vu MD LAB - BLOOD ORDERA BLEMarkel Performing Organization Address [facility] Co de Phone Number [facility] LABDE SCAN * (ABNORMAL) CBC with platelets (04/12/2017 8:32 AM MANAGER OUTPATIENT) WBC Count (External) 2.7(L) 4.5 - 11.0 thou/cu mm LABDE SCAN RBC Count (External) 4.37 4.30 - 5.90 mil/cu mm LABDE SCAN Hemoglobin (External) 12.2(L) 13.5 - 17.5 g/dL LABDE SCAN Hematocrit (External) 35.8(L) 37.0 - 53.0 % LABDE SCAN MCV (External) 82 80 - 100 fL LABDE SCAN MCH (External) 27.9 26.0 - 34.0 pg LABDE SCAN MCHC (External) 34.1 32.0 - 36.0 g/dL LABDE SCAN RDW (External) 16.2(H) 11.5 - 15.5 % LABDE SCAN Platelet Count (External) 140 140 - 440 thou/cu mm LABDE SCAN Blood specimen (specimen) 04/12/2017 8:32 AM MANAGER OUTPATIENT Narrative BREEZE PFT - 04/14/2017 8:48 AM MANAGER OUTPATIENT Verified by Myrna Monreal on 04/14/2017. Aime Vu MD LAB - BLOOD ORDERA BLES BREEZE PFT LABDE SCAN * (ABNORMAL) Basic metabolic panel (04/12/2017 8:32 AM MANAGER OUTPATIENT) Sodium (External) 141 135 - 145 mmol/L LABDE SCAN Potassium (External) 3.9 3.5 - 5.0 mmol/L LABDE SCAN Chloride (External) 111(H) 98 - 110 mmol/L LABDE SCAN CO2 (External) 21 21 - 31 mmol/L LABDE SCAN Anion Gap (External) 9 5 - 18 LABDE SCAN Glucose (External) 130(H) 65 - 100 mg/dL LABDE SCAN Calcium (External) 8.7 8.5 - 10.5 mg/dL LABDE SCAN Urea Nitrogen (External) 19 8 - 25 mg/dL LABDE SCAN Creatinine (External) 1.68(H) 0.72 - 1.25 mg/dL LABDE SCAN BUN/Creatinine Ratio (External) 11 10 - 20 LABDE SCAN GFR Estimated (if ) (External) 50(L) >60 ml/min/1.7 3m2 LABDE SCAN GFR Estimated (External) 41(L) >60 ml/min/1.7 3m2 LABDE SCAN Blood specimen (specimen) 04/12/2017 8:32 AM MANAGER OUTPATIENT Narrative BREEZE PFT - 04/14/2017 8:48 AM MANAGER OUTPATIENT Verified by Myrna Monreal on 04/14/2017. Aime Vu MD LAB - BLOOD ORDERA [...] documented as of this encounter Care Teams Hide Salter Relationship Specialty Start Date End Date Rubén Boyle MD PCP - General Family Practice 03/08/16 Pamela Blanco NP [facility] [address] [place], [place] [address] Referring Physician 07/13/16 Pedro Segura MD [facility] [address] [place], [place] [address] Nephrology 10/03/16 Freddy Craft MD [address] [facility] [address] [place] [address] Assigned Gastroenterology Provider 02/08/20 Abdifatah Van MD [address] [facility] [address] [place] [address] Assigned Nephrology Provider 07/13/20 11/07/23 Nicole Carranza NP [address] [facility] [address] [place], [place] [phone] Assigned Heart and Vascular Provider 01/09/22 Andressa Ruiz PA-C 420 [facility] 803 [place] [address] Physician Manager Strategy & Account Endocrinology, Diabetes, and Metabolism 03/01/22 Ahslyn Storm, RN [facility] [address] [place] [address] Registered Nurse 03/03/22 09/15/22 Rubén Gunter [facility] [address] [place] [address] Assigned MTM Pharmacist 02/27/22 Andressa Ruiz PA-C [address] [facility] [address] [place] [address] Assigned Endocrinology Provider 03/13/22 09/07/23 Suzan Harry MD [address] [place] [address] Nephrology 06/30/23 Yasmeen Powers MD [address] [place] [address] Nephrology 10/24/23 Yasmeen Powers MD [address] [place] [address] Assigned Nephrology Provider 11/08/23 documented as of this encounter
--- OUTSIDE RECORDS SUMMARY | 2023-12-15 10:11 | XMS_ITS | Encounter Summary ---
Author Organization [place] Address [address] [place] [address] Care Team Providers Care Watershed Engineer Name Role Phone Rubén Boyle MD Primary Care Provider Pamela Blanco TRUST ACCOUNTS SUPERVISOR Unavailable Pedro Segura MD Unavailable [phone] Freddy Craft MD Unavailable Abdifatah Van MD Unavailable Nicole Carranza TRUST ACCOUNTS SUPERVISOR Unavailable [phone] Andressa Ruiz-C Unavailable sAhlyn Storm RN Unavailable [phone] Rubén Gunter [facility] Unavailable Andressa Ruiz-C Unavailable [phone] Suzan Harry MD Unavailable Yasmeen Powers MD Unavailable [phone] Yasmeen Powers MD Unavailable [phone] Encounter Details Date Type Department Care Team (Late st Contact Info) Description 03/25/2017 MyC Medical Advice Initial Department Lilliam Collier Social History Tobacco Use Types [...] documented as of this encounter Care Teams Watershed Engineer Relationship Specialty Start Date End Date Rubén Boyle MD PCP - General Family Practice 03/08/16 Pamela Blanco NP [facility] [address] [place], [place] [phone] Referring Physician 07/13/16 Pedro Segura MD [facility] [address] [place] [address] Nephrology 10/03/16 Freddy Craft MD [address] [facility] [address] [place] [address] Assigned Gastroenterology Provider 02/08/20 Abdifatah Van MD [address] [facility] [address] [place] [address] Assigned Nephrology Provider 07/13/20 11/07/23 Nicole Carranza NP [address] [facility] [address] [place], [place] [address] Assigned Heart and Vascular Provider 01/09/22 Andressa Ruiz PA-C 420 [facility] [address] [place] [address] Physician Technical Adjuster Endocrinology, Diabetes, and Metabolism 03/01/22 Ashlyn Storm, RN [facility] [address] [place] [address] Registered Nurse 03/03/22 09/15/22 Rubén Gunter [facility] [address] [place] [address] Assigned MTM Pharmacist 02/27/22 Andressa Ruiz PA-C 420 [facility] [address] [place] [address] Assigned Endocrinology Provider 03/13/22 09/07/23 Suzan Harry MD [address] [place] [address] Nephrology 06/30/23 Yasmeen Powers MD [address] [place] [address] Nephrology 10/24/23 Yasmeen Powers MD [address] [place] [address] Assigned Nephrology Provider 11/08/23 documented as of this encounter
--- OUTSIDE RECORDS SUMMARY | 2023-12-15 10:11 | XMS_ITS | Encounter Summary ---
Author Organization [place] Address [address] [place] [address] Care Team Providers Care Fruit Coordinator Name Role Phone Rubén Boyle MD Primary Care Provider Pamela Blanco HUMAN RESOURCES BENEFITS MANAGER Unavailable Pedro Segura MD Unavailable Freddy Craft MD Unavailable Abdifatah Van MD Unavailable Nicole Carranza HUMAN RESOURCES BENEFITS MANAGER Unavailable [phone] Andressa Ruiz-C Unavailable [phone] Ashlyn Storm RN Unavailable [phone] Rubén Gunter [facility] Unavailable Andressa Ruiz-C Unavailable Suzan Harry MD Unavailable [phone] Yasmeen Powers MD Unavailable [phone] Yasmeen Powers MD Unavailable [phone] Encounter Details Date Type Department Care Team (Latest Contact Info) Description 04/06/[address] [facility] [address] [place] [address] Long-term use of immunosuppressant medication; [...] Priority Date/Time Associated Diagnosis Comments PHOSPHORUS Routine 04/05/2017 8:00 AM LAUNDRY OPERATOR FINISHING Long-term use of immunosuppressant medication 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) MAGNESIUM Routine 04/05/2017 8:00 AM LAUNDRY OPERATOR FINISHING Long-term use of immunosuppressant medication 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) HEPATIC FUNCTION PANEL Routine 04/05/2017 8:00 AM LAUNDRY OPERATOR FINISHING Long-term use of immunosuppressant medication 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) DIFFERENTIAL Routine 04/05/2017 8:00 AM LAUNDRY OPERATOR FINISHING BASIC METABOLIC PANEL Routine 04/05/2017 8:00 AM LAUNDRY OPERATOR FINISHING Long-term use of immunosuppressant medication 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) CBC WITH PLATELETS Routine 04/05/2017 8: 00 AM LAUNDRY OPERATOR FINISHING Long-term use of immunosuppressant medication 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) documented in this encounter Results * (ABNORMAL) WBC Differential (04/05/2017 8:00 AM LAUNDRY OPERATOR FINISHING) % Neutrophils (External) 48.9 42.0 - 72.0 % LABDE SCAN % Lymphocytes (External) 32.6 20.0 - 44.0 % LABDE SCAN % Monocytes (External) 13.4(H) <12.0 % LABDE SCAN % Eosinophils (External) 4.5 <8.0 % LABDE SCAN % Basophils (External) 0.3 <3.0 % LABDE SCAN % Immature Granulocytes (External) 0.3 % LABDE SCAN Absolute Neutrophils (External) 1.4(L) 1.7 - 7.0 thou/cu mm LABDE SCAN Absolute Lymphocytes (External) 1.0 0.9 - 2.9 thou/cu mm LABDE SCAN Absolute Monocytes (External) 0.4 <0.9 thou/cu mm LABDE SCAN Absolute Eosinophils (External) 0.1 <0.5 thou/cu mm LABDE SCAN Absolute Basophils (External) 0.0 <0.3 thou/cu mm LABDE SCAN Absolute Immature Granulocytes (External) 0.0 <0.3 thou/cu mm LABDE SCAN Blood specimen (specimen) 04/05/2017 8:00 AM LAUNDRY OPERATOR FINISHING Narrative AMNAE PFT - 04/06/2017 8:24 AM LAUNDRY OPERATOR FINISHING Verified by Cruzito Marlow on 04/06/2017. Patient Reported LAB - BLOOD ORDERABL ES SAMANTHA PFT LABDE SCAN * (ABNORMAL) CBC with platelets (04/05/2017 8:00 AM LAUNDRY OPERATOR FINISHING) WBC Count (External) 2.9(L) 4.5 - 11.0 thou/cu mm LABDE SCAN RBC Count (External) 4.47 4.30 - 5.90 mil/cu mm LABDE SCAN Hemoglobin (External) 12.4(L) 13.5 - 17.5 g/dL LABDE SCAN Hematocrit (External) 35.4(L) 37.0 - 53.0 % LABDE SCAN MCV (External) 79(L) 80 - 100 fL LABDE SCAN MCH (External) 27.7 26.0 - 34.0 pg LABDE SCAN MCHC (External) 35.0 32.0 - 36.0 g/dL LABDE SCAN RDW (External) 15.4 11.5 - 15.5 % LABDE SCAN Platelet Count (External) 152 140 - 440 thou/cu mm LABDE SCAN Blood specimen (specimen) 04/05/2017 8:00 AM LAUNDRY OPERATOR FINISHING Narrative SAMANTHA PFT - 04/06/2017 8:24 AM LAUNDRY OPERATOR FINISHING Verified by Cruzito Marlow on 04/06/2017. Aime Vu MD LAB - BLOOD ORDERA BLES Performing Organization Address [facility] Co de Phone Number BREEZE PFT LABDE SCAN * Phosphorus (04/05/2017 8:00 AM LAUNDRY OPERATOR FINISHING) Phosphorus (External) 3.0 2.3 - 4.7 mg/dL LABDE SCAN Blood specimen (specimen) 04/05/2017 8:00 AM LAUNDRY OPERATOR FINISHING Narrative BREEZE PFT - 04/06/2017 8:24 AM LAUNDRY OPERATOR FINISHING Verified by Cruzito Marlow on 04/06/2017. Aime Vu MD LAB - BLOOD ORDERA BLES Performing Organization Address [facility] de Phone Number BREEZE PFT LABDE SCAN * (ABNORMAL) Hepatic panel (04/05/2017 8:00 AM LAUNDRY OPERATOR FINISHING) Albumin (External) 4.2 3.2 - 4.6 g/dL LABDE SCAN Protein Total (External) 6.5 6.0 - 8.0 g/dL LABDE SCAN Bilirubin Total (External) 1.3(H) 0.2 - 1.2 mg/dL LABDE SCAN Bilirubin Direct (External) 0.5 0.1 - 0.5 mg/dL LABDE SCAN Alk Phosphatase (External) 104 50 - 136 IU/L LABDE SCAN ALT (External) 21 8 - 45 IU/L LABDE SCAN AST (External) 23 2 - 40 IU/L LABDE SCAN Blood specimen (specimen) 04/05/2017 8:00 AM LAUNDRY OPERATOR FINISHING Narrative BREEZE PFT - 04/06/2017 8:24 AM LAUNDRY OPERATOR FINISHING Verified by Cruzito Marlow on 04/06/2017. Aime Vu MD LAB - BLOOD ORDERA BLES Performing Organization Address [facility] de Phone Number BREEZE PFT LABDE SCAN * (ABNORMAL) Basic metabolic panel (04/05/2017 8:00 AM LAUNDRY OPERATOR FINISHING) Sodium (External) 138 135 - 145 mmol/L LABDE SCAN Potassium (External) 2.6(LL) 3.5 - 5.0 mmol/L LABDE SCAN Chloride (External) 105 98 - 110 mmol/L LABDE SCAN CO2 (External) 18(L) 21 - 31 mmol/L LABDE SCAN Anion Gap (External) 15 5 - 18 LABDE SCAN Glucose (External) 134(H) 65 - 100 mg/dL LABDE SCAN Calcium (External) 8.2(L) 8.5 - 10.5 mg/dL LABDE SCAN Urea Nitrogen (External) 40(H) 8 - 25 mg/dL LABDE SCAN Creatinine (External) 3.03(H) 0.72 - 1.25 mg/dL LABDE SCAN BUN/Creatinine Ratio (External) 13 10 - 20 LABDE SCAN GFR Estimated (if ) (External) 25(L) >60 ml/min/1.7 3m2 LABDE SCAN GFR Estimated (External) 21(L) >60 ml/min/1.7 3m2 LABDE SCAN Blood specimen (specimen) 04/05/2017 8:00 AM LAUNDRY OPERATOR FINISHING Narrative BREEZE PFT - 04/06/2017 8:24 AM LAUNDRY OPERATOR FINISHING Verified by Cruzito Marlow on 04/06/2017. Aime Vu MD LAB - BLOOD ORDERA BLES BREEZE PFT LABDE SCAN * (ABNORMAL) Magnesium (04/05/2017 8:00 AM LAUNDRY OPERATOR FINISHING) Magnesium (External) 1.0(LL) 1.6 - 2.6 mg/dL LABDE SCAN Blood specimen (specimen) 04/05/2017 8:00 AM LAUNDRY OPERATOR FINISHING Narrative BREEZE PFT - 04/06/2017 8:08 AM LAUNDRY OPERATOR FINISHING Verified by Cruzito Marlow on 04/06/2017. Aime Vu MD LAB - BLOOD ORDERA BLES BREEZE PFT LABDE SCAN documented in [...] documented as of this encounter Care Teams Fruit Coordinator Relationship Specialty Start Date End Date Rubén Boyle MD PCP - General Family Practice 03/08/16 Pamela Blanco, HUMAN RESOURCES BENEFITS MANAGER [facility] [address] [place] [address] Referring Physician 07/13/[address] [facility] [address] [place] [address] Nephrology 10/03/16 Freddy Craft MD [address] [facility] [address] [place], [place] [address] Assigned Gastroenterology Provider 02/08/20 Abdifatah Van MD [address] [place], [place] [address] Assigned Nephrology Provider 07/13/20 11/07/23 Nicole Carrazna NP [address] [place], [place] [address] Assigned Heart and Vascular Provider 01/09/22 Andressa Ruiz PA-C [address] [facility] [address] [place], [place] [address] Physician Cardiac Cath Lab Manager Endocrinology, Diabetes, and Metabolism 03/01/22 Ashlyn Storm, RN [facility] [address] [place] [address] Registered Nurse 03/03/22 09/15/22 Rubén Gunter [facility] [address] [place] [address] Assigned MTM Pharmacist 02/27/22 Andressa Ruiz PA-C 420 [facility] [address] [place] [address] Assigned Endocrinology Provider 03/13/22 09/07/23 Suzan Harry MD 420 [place] [address] Nephrology 06/30/23 Yasmeen Powers MD 500 [place] [address] Nephrology 10/24/23 Yasmeen Powers MD [address] [place] [address] Assigned Nephrology Provider 11/08/23 documented as of this encounter
--- OUTSIDE RECORDS SUMMARY | 2023-12-15 10:11 | XMS_ITS | Encounter Summary ---
Author Organization [facility] Address [address] [place] [id number] Care Team Providers Care Baccarat Dealer Name Role Phone Rubén Boyle MD Primary Care Provider [phone] Pamela Blanco STOPPERER ASSEMBLER Unavailable Pedro Segura MD Unavailable Freddy Craft MD Unavailable Abdifatah Van MD Unavailable Nicole Carranza STOPPERER ASSEMBLER Unavailable [phone] Andressa Ruiz-C Unavailable [phone] Ashlyn Storm RN Unavailable Rubén Gunter [facility] Unavailable Andressa Ruiz-C Unavailable [phone] Suzan Harry MD Unavailable [phone] Yasmeen Powers MD Unavailable [phone] Yasmeen Powers MD Unavailable [phone] Encounter Details Date Type Department Care Team (Latest Contact Info) Description 03/22/2017 External Order Results [facility] [address] [place] [address] Long-term use of immunosuppressant medication; [...] Priority Date/Time Associated Diagnosis Comments PHOSPHORUS Routine 03/21/2017 10:40 AM ADVISOR ADVOCATE ANGEL CO FOUNDER Long-term use of immunosuppressant medication 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) MAGNESIUM Routine 03/21/2017 10:40 AM ADVISOR ADVOCATE ANGEL CO FOUNDER Long-term use of immunosuppressant medication 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) HEPATIC FUNCTION PANEL Routine 03/21/2017 10:40 AM ADVISOR ADVOCATE ANGEL CO FOUNDER Long-term use of immunosuppressant medication 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) BASIC METABOLIC PANEL Routine 03/21/2017 10:40 AM ADVISOR ADVOCATE ANGEL CO FOUNDER Long-term use of immunosuppressant medication 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) CBC WITH PLATELETS Routine 03/21/2017 10 :40 AM ADVISOR ADVOCATE ANGEL CO FOUNDER Long-term use of immunosuppressant medication 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) documented in this encounter Results * (ABNORMAL) Hepatic panel (03/21/2017 10:40 AM ADVISOR ADVOCATE ANGEL CO FOUNDER) Albumin (External) 4.1 3.2 - 4.6 g/dL LABDE SCAN Protein Total (External) 6.8 6.0 - 8.0 g/dL LABDE SCAN Bilirubin Total (External) 1.6(H) 0.2 - 1.2 mg/dL LABDE SCAN Bilirubin Direct (External) 0.5 0.1 - 0.5 mg/dL LABDE SCAN Alk Phosphatase (External) 103 50 - 136 IU/L LABDE SCAN ALT (External) 12 8 - 45 IU/L LABDE SCAN AST (External) 13 2 - 40 IU/L LABDE SCAN Blood specimen (specimen) 03/21/2017 10:40 AM ADVISOR ADVOCATE ANGEL CO FOUNDER Narrative BREEZE PFT - 03/22/2017 10:51 AM ADVISOR ADVOCATE ANGEL CO FOUNDER Verified by Rhiannon Cain on 03/22/2017. Aime Vu MD LAB - BLOOD ORDERA BLES Performing Organization Address [facility] de Phone Number BREEZE PFT LABDE SCAN * (ABNORMAL) Magnesium (03/21/2017 10:40 AM ADVISOR ADVOCATE ANGEL CO FOUNDER) Magnesium (External) 1.4(L) 1.6 - 2.6 mg/dL LABDE SCAN Blood specimen (specimen) 03/21/2017 10:40 AM ADVISOR ADVOCATE ANGEL CO FOUNDER Narrative BREEZE PFT - 03/22/2017 10:51 AM ADVISOR ADVOCATE ANGEL CO FOUNDER Verified by Rhiannon Cain on 03/22/2017. Aime Vu MD LAB - BLOOD ORDERA BLES Performing Organization Address [facility] de Phone Number BREEZE PFT LABDE SCAN * Phosphorus (03/21/2017 10:40 AM ADVISOR ADVOCATE ANGEL CO FOUNDER) Phosphorus (External) 2.9 2.3 - 4.7 mg/dL LABDE SCAN Blood specimen (specimen) 03/21/2017 10:40 AM ADVISOR ADVOCATE ANGEL CO FOUNDER Narrative BREEZE PFT - 03/22/2017 10:51 AM ADVISOR ADVOCATE ANGEL CO FOUNDER Verified by Rhiannon Cain on 03/22/2017. Aime Vu MD LAB - BLOOD ORDERA BLES Performing Organization Address [facility] de Phone Number BREEZE PFT LABDE SCAN * (ABNORMAL) Basic metabolic panel (03/21/2017 10:40 AM ADVISOR ADVOCATE ANGEL CO FOUNDER) Sodium (External) 139 135 - 145 mmol/L LABDE SCAN Potassium (External) 4.7 3.5 - 5.0 mmol/L LABDE SCAN Chloride (External) 110 98 - 110 mmol/L LABDE SCAN CO2 (External) 20(L) 21 - 31 mmol/L LABDE SCAN Anion Gap (External) 9 5 - 18 LABDE SCAN Glucose (External) 131(H) 65 - 100 mg/dL LABDE SCAN Calcium (External) 9.3 8.5 - 10.5 mg/dL LABDE SCAN Urea Nitrogen (External) 41(H) 8 - 25 mg/dL LABDE SCAN Creatinine (External) 2.66(H) 0.72 - 1.25 mg/dL LABDE SCAN BUN/Creatinine Ratio (External) 15 10 - 20 LABDE SCAN GFR Estimated (if ) (External) 29(L) >60 ml/min/1.7 3m2 LABDE SCAN GFR Estimated (External) 24(L) >60 ml/min/1.7 3m2 LABDE SCAN Blood specimen (specimen) 03/21/2017 10:40 AM ADVISOR ADVOCATE ANGEL CO FOUNDER Narrative ERICKEZE PFT - 03/22/2017 10:51 AM ADVISOR ADVOCATE ANGEL CO FOUNDER Verified by Rhiannon Cain on 03/22/2017. Aime Vu MD LAB - BLOOD ORDERA BLES BREEZE PFT LABDE SCAN * (ABNORMAL) CBC with platelets (03/21/2017 10:40 AM ADVISOR ADVOCATE ANGEL CO FOUNDER) WBC Count (External) 2.7(L) 4.5 - 11.0 thou/cu mm LABDE SCAN RBC Count (External) 4.43 4.30 - 5.90 mil/cu mm LABDE SCAN Hemoglobin (External) 12.4(L) 13.5 - 17.5 g/dL LABDE SCAN Hematocrit (External) 35.5(L) 37.0 - 53.0 % LABDE SCAN MCV (External) 80 80 - 100 fL LABDE SCAN MCH (External) 28.0 26.0 - 34.0 PG LABDE SCAN MCHC (External) 34.9 32.0 - 36.0 g/dL LABDE SCAN RDW (External) 14.3 11.5 - 15.5 % LABDE SCAN Platelet Count (External) 132(L) 140 - 440 thou/cu mm LABDE SCAN Blood specimen (specimen) 03/21/2017 10:40 AM ADVISOR ADVOCATE ANGEL CO FOUNDER Narrative BREEZE PFT - 03/22/2017 10:51 AM ADVISOR ADVOCATE ANGEL CO FOUNDER Verified by Rhiannon Cain on 03/22/2017. Aime Vu MD LAB - BLOOD ORDERA [...] documented as of this encounter Care Teams Baccarat Dealer Relationship Specialty Start Date End Date Rubén Boyle MD PCP - General Family Practice 03/08/16 Pamela Blanco STOPPERER ASSEMBLER [facility] [address] [place], [place] [address] Referring Physician 07/13/16 Pedro Segura MD [facility] [address] [place], [place] [address] Nephrology 10/03/16 Freddy Craft MD [address] [facility] [address] [place] [address] Assigned Gastroenterology Provider 02/08/20 Abdifatah Van MD [address] [facility] [address] [place] [address] Assigned Nephrology Provider 07/13/20 11/07/23 Nicole Carranza NP 420 [facility] [address] [place] [address] Assigned Heart and Vascular Provider 01/09/22 Andressa Ruiz PA-C 420 [facility] 803 [place] [address] Physician Lock And Dam Operator Endocrinology, Diabetes, and Metabolism 03/01/22 Ashlyn Storm RN [facility] [address] [place] [address] Registered Nurse 03/03/22 09/15/22 Rubén Gunter [facility] [address] [place] [address] Assigned MTM Pharmacist 02/27/22 Andressa Ruiz PA-C 420 [facility] 803 [place] [address] Assigned Endocrinology Provider 03/13/22 09/07/23 Suzan Harry MD [address] [place] [address] Nephrology 06/30/23 Yasmeen Powers MD [address] [place] [address] Nephrology 10/24/23 Yasmeen Powers MD [address] [place] [address] Assigned Nephrology Provider 11/08/23 documented as of this encounter
--- OUTSIDE RECORDS SUMMARY | 2023-12-15 10:11 | XMS_ITS | Encounter Summary ---
Author Organization [place] Address [address] [place] [address] Care Team Providers Care Cafe Aide Name Role Phone Rubén Boyle MD Primary Care Provider [phone] Pamela Blanco PRODUCT MANAGEMENT SPECIALIST Unavailable Pedro Segura MD Unavailable Freddy Craft MD Unavailable Abdifatah Van MD Unavailable Nicole Carranza PRODUCT MANAGEMENT SPECIALIST Unavailable [phone] Andressa Ruiz-C Unavailable Ashlyn Storm RN Unavailable [phone] Rubén Gunter [facility] Unavailable Andressa Ruiz-C Unavailable Suzan Harry MD Unavailable [phone] Yasmeen Powers MD Unavailable Yasmeen Powers MD Unavailable [phone] Encounter Details Date Type Department Care Team (Late st Contact Info) Description 04/16/2017 External Order Results [facility] [address] [place] [address] Social History Tobacco Use Types [...] Comments TACROLIMUS BY TANDEM MASS SPECTROMETRY Routine 04/12/2017 8:32 AM CHUTE GREASER documented in this encounter Results * Tacrolimus level (04/12/2017 8:32 AM CHUTE GREASER) Tacrolimus(FK-5 06) (External) 4.9 LABDE SCAN Tacrolimus Last Dose (External) 04/11/2017 At 08:00pm LABDE SCAN Blood specimen (specimen) 04/12/2017 8:32 AM CHUTE GREASER Narrative SAMANTHA PFT - 04/16/2017 11:00 AM CHUTE GREASER Verified by Yamil Santo on 04/16/2017. 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 [address] [place] [address] Nephrology 10/03/16 Freddy Craft MD [address] [facility] [address] [place] [address] Assigned Gastroenterology Provider 02/08/20 Abdifatah Van MD [address] [facility] [address] [place] [address] Assigned Nephrology Provider 07/13/20 11/07/23 Nicole Cararnza NP 420 [facility] [address] [place], [place] [address] Assigned Heart and Vascular Provider 01/09/22 Andressa Ruiz PA-C 420 [facility] 803 [place], [place] [address] Physician Automotive Parts Counter Associate Endocrinology, Diabetes, and Metabolism 03/01/22 Ashlyn Storm RN [facility] [address] [place] [address] Registered Nurse 03/03/22 09/15/22 Rubén Gunter [facility] [address] [facility] [place] [address] Assigned MTM Pharmacist 02/27/22 Andressa Ruiz PA-C 420 [facility] 803 [place] [address] Assigned Endocrinology Provider 03/13/22 09/07/23 Suzan Harry MD [address] [place] [address] Nephrology 06/30/23 Yasmeen Powers MD 500 [place] [address] Nephrology 10/24/23 Yasmeen Powers MD [address] [place] [address] Assigned Nephrology Provider 11/08/23 documented as of this encounter
--- OUTSIDE RECORDS SUMMARY | 2023-12-15 10:11 | XMS_ITS | Encounter Summary ---
Author Organization [facility] Address [address] [place] [address] Care Team Providers Care Turf Grower Name Role Phone Rubén Boyle MD Primary Care Provider Pamela Blanco DARKROOM WORKER Unavailable Pedro Segura MD Unavailable [phone] Freddy Craft MD Unavailable Abdifatah Van MD Unavailable Nicole Carranza DARKROOM WORKER Unavailable [phone] Andressa Ruiz-C Unavailable Ashlyn Storm RN Unavailable Rubén Gunter [facility] Unavailable Andressa Ruiz-C Unavailable Suzan Harry MD Unavailable [phone] Yasmeen Powers MD Unavailable [phone] Yasmeen Powers MD Unavailable [phone] Encounter Details Date Type Department Care Team (Latest Contact Info) Description 04/06/2017 External Order Results [facility] [address] [place] [address] 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); 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 transplant; termite exterminator use of drug Social History Tobacco Use [...] Comments TACROLIMUS BY TANDEM MASS SPECTROMETRY Routine 04/05/2017 8:00 AM HOLIDAY DETECTOR OPERATOR 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) 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 transplant long-term use of drug documented in this encounter Results * Tacrolimus level (04/05/2017 8:00 AM HOLIDAY DETECTOR OPERATOR) Tacrolimus(FK-5 06) (External) 13.0 ng/mL LABDE SCAN Tacrolimus Last Dose (External) Not given LABDE SCAN Blood specimen (specimen) 04/05/2017 8:00 AM HOLIDAY DETECTOR OPERATOR Narrative SAMANTHA PFT - 04/07/2017 3:48 PM HOLIDAY DETECTOR OPERATOR Verified by Cruzito Marlow on 04/07/2017. 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, 07/10/16 rectal swab 06/21/2016 06/21/2016 documented as of this encounter Care Teams Turf Grower Relationship Specialty Start Date End Date Rubén Boyle MD PCP - General Family Practice 03/08/16 Pamela Blanco DARKROOM WORKER [facility] [address] [place] [address] Referring Physician 07/13/16 Pedro Segura MD [facility] [address] [place] [address] Nephrology 10/03/16 Freddy Craft MD [address] [facility] [place], [place] [address] Assigned Gastroenterology Provider 02/08/20 Abdifatah Van MD [address] [facility] [address] [place] [address] Assigned Nephrology Provider 07/13/20 11/07/23 Nicole Carranza NP 420 [facility] [address] [place], [place] [address] Assigned Heart and Vascular Provider 01/09/22 Andressa Ruiz PA-C 420 [facility] 803 [place], [place] [address] Physician Accounts Receivable Analyst Endocrinology, Diabetes, and Metabolism 03/01/22 Ashlyn Storm, RN [facility] [address] [place] [address] Registered Nurse 03/03/22 09/15/22 Rubén Gunter [facility] 9[address] [facility] [place] [address] Assigned MTM Pharmacist 02/27/22 Andressa Ruiz PA-C 420 [facility] 803 [place] [address] Assigned Endocrinology Provider 03/13/22 09/07/23 Suzan Harry MD 420 [place] [address] Nephrology 06/30/23 Yasmeen Powers MD 500 [place] [address] Nephrology 10/24/23 Yasmeen Powers MD 500 [place] [address] Assigned Nephrology Provider 11/08/23 documented as of this encounter
--- OUTSIDE RECORDS SUMMARY | 2023-12-15 10:11 | XMS_ITS | Encounter Summary ---
Author Organization [facility] Address [address] [place] [address] Care Team Providers Care Feller Seam Operator Name Role Phone Rubén Boyle MD Primary Care Provider [phone] TECHNOLOGIST Unavailable Pedro Segura MD Unavailable Freddy Craft MD Unavailable [phone] Abdifatah Van MD Unavailable Nicole Carranza CT TECHNOLOGIST Unavailable [phone] Andressa Ruiz-C Unavailable Ashlyn Storm RN Unavailable Rubén Gunter [facility] Unavailable Andressa Ruiz-C Unavailable Suzan Harry MD Unavailable [phone] Yasmeen Powers MD Unavailable [phone] Yasmeen Powers MD Unavailable [phone] Encounter Details Date Type Department Care Team (Latest Contact Info) Description 03/24/2017 External Order Results [facility] [address] [place] [address] Long-term use of immunosuppressant medication; [...] Comments TACROLIMUS BY TANDEM MASS SPECTROMETRY Routine 03/21/2017 10:40 AM ASSOCIATE PROFESSOR OF ENGLISH Long-term use of immunosuppressant medication 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) documented in this encounter Results * (ABNORMAL) Tacrolimus level (03/21/2017 10:40 AM ASSOCIATE PROFESSOR OF ENGLISH) Tacrolimus(FK-5 06) (External) 21.3(H) 5 - 8 ng/mL LABDE SCAN Tacrolimus Last Dose (External) 03/20/2017 at 2000 LABDE SCAN Blood specimen (specimen) 03/21/2017 10:40 AM ASSOCIATE PROFESSOR OF ENGLISH Narrative SAMANTHA PFT - 03/24/2017 12:03 PM ASSOCIATE PROFESSOR OF ENGLISH Verified by Rhiannon Cain on 03/24/2017. Aime Vu MD LAB - BLOOD ORDERA [...] documented as of this encounter Care Teams Feller Seam Operator Relationship Specialty Start Date End Date Rubén Boyle MD PCP - General Family Practice 03/08/16 Pamela Blanco NP [facility] [address] [place] [address] Referring Physician 07/13/16 Pedro Segura MD [facility] [address] [place] [address] Nephrology 10/03/16 Freddy Craft MD [facility] [address] [place], [place] [address] Assigned Gastroenterology Provider 02/08/20 Abdifatah Van MD 717 [facility] [address] [place], [place] [address] Assigned Nephrology Provider 07/13/20 11/07/23 Nicloe Carranza, [place] 420 [facility] [address] [place], [place] [address] Assigned Heart and Vascular Provider 01/09/22 Andressa Ruiz PA-C 420 [facility] 803 [place], [place] [address] Physician Transcription Manager Endocrinology, Diabetes, and Metabolism 03/01/22 Ashlyn Storm, RN [facility] 7[address] [place], [place] [address] Registered Nurse 03/03/22 09/15/22 uRbén Gunter [facility] [address] [place], [place] [address] Assigned MTM Pharmacist 02/27/22 Andressa Ruiz PA-C 420 [facility] [address] [place], [place] [address] Assigned Endocrinology Provider 03/13/22 09/07/23 Suzan Harry MD 420 [place], [place] [address] Nephrology 06/30/23 Yasmeen Powers MD 500 [place] [address] Nephrology 10/24/23 Yasmeen Powers MD [address] [place] [address] Assigned Nephrology Provider 11/08/23 documented as of this encounter
--- OUTSIDE RECORDS SUMMARY | 2023-12-15 10:11 | XMS_ITS | Encounter Summary ---
Author Organization [facility] Address [address] [place] [address] Care Team Providers Care Dough Brake Machine Operator Name Role Phone Rubén Boyle MD Primary Care Provider Pamela Blanco INDUCTION COORDINATION POWER ENGINEER Unavailable Pedro Segura MD Unavailable [phone] Freddy Craft MD Unavailable [phone] Abdifatah Van MD Unavailable Nicole Carranza INDUCTION COORDINATION POWER ENGINEER Unavailable [phone] Andressa Ruiz-C Unavailable Ashlyn Storm RN Unavailable [phone] Rbuén Gunter [facility] Unavailable Andressa Ruiz-C Unavailable Suzan Harry MD Unavailable [phone] Yasmeen Powers MD Unavailable Yasmeen Powers MD Unavailable [phone] Encounter Details Date Type Department Care Team (Latest Contact Info) Description 04/08/2017 External Order Results [facility] [address] [place] [address] Long-term use of immunosuppressant medication; [...] Priority Date/Time Associated Diagnosis Comments PHOSPHORUS Routine 04/06/2017 12:14 PM [employer] [employer] [employer] Long-term use of immunosuppressant medication 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) MAGNESIUM Routine 04/06/2017 12:14 PM [facility] [employer] [employer] Long-term use of immunosuppressant medication 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) HEPATIC FUNCTION PANEL Routine 04/06/2017 12:14 PM [facility] [employer] [facility] [employer] Long-term use of immunosuppressant medication 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) BASIC METABOLIC PANEL Routine 04/06/2017 12:14 PM [facility] [employer] [facility] [employer] Long-term use of immunosuppressant medication 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) CBC WITH PLATELETS Routine 04/06/2017 12 :14 PM [facility] [employer] [facility] [facility] [employer] Long-term use of immunosuppressant medication 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) documented in this encounter Results * Phosphorus (04/06/2017 12:14 PM [facility] [employer] [facility] [employer]) Phosphorus (External) 2.3 2.3 - 4.7 mg/dL LABDE SCAN Blood specimen (specimen) 04/06/2017 12:14 PM [facility] [employer] [facility] [facility] [employer] Narrative SAMANTHA PFT - 04/08/2017 4:18 PM [employer] [employer] [employer] Verified by Myrna Monreal on 04/08/2017. Aime Vu MD LAB - BLOOD ORDERA BLES BREEZE PFT LABDE SCAN * (ABNORMAL) Magnesium (04/06/2017 12:14 PM [facility] [employer] [facility] [employer]) Magnesium (External) 1.3(L) 1.6 - 2.6 mg/dL LABDE SCAN Blood specimen (specimen) 04/06/2017 12:14 PM [facility] [employer] [facility] [employer] Narrative BREEZE PFT - 04/08/2017 4:18 PM [facility] [employer] [facility] [employer] Verified by Myrna Monreal on 04/08/2017. Aime Vu MD LAB - BLOOD ORDERA BLES Performing Organization Address [facility] Co de Phone Number [facility] LABDE SC[facility] * Hepatic panel (04/06/2017 12:14 PM [facility] [employer] [facility] [employer]) Albumin (External) 4.0 3.2 - 4.6 g/dL LABDE SCAN Protein Total (External) 6.1 6.0 - 8.0 g/dL LABDE SCAN Bilirubin Total (External) 1.2 0.2 - 1.2 mg/dL LABDE SCAN Bilirubin Direct (External) 0.5 0.1 - 0.5 mg/dL LABDE SCAN Alk Phosphatase (External) 95 50 - 136 IU/L LABDE SCAN ALT (External) 19 8 - 45 IU/L LABDE SCAN AST (External) 24 2 - 40 IU/L LABDE SCAN Blood specimen (specimen) 04/06/2017 12:14 PM [facility] Narrative [facility] - 04/08/2017 4:18 PM [facility] [employer] [facility] [facility] [employer] Verified by Myrna Monreal on 04/08/2017. Aime Vu MD LAB - BLOOD ORDERA BLES Performing Organization Address [facility] Co de Phone Number [facility]FT LABDE SCAN * (ABNORMAL) CBC with platelets (04/06/2017 12:14 PM [facility] [employer] [facility] [employer]) WBC Count (External) 2.7(L) 4.5 - 11.0 thou/cu mm LABDE SCAN RBC Count (External) 4.37 4.30 - 5.90 mil/cu mm LABDE SCAN Hemoglobin (External) 12.2(L) 13.5 - 17.5 g/dL LABDE SCAN Hematocrit (External) 34.7(L) 37.0 - 53.0 % LABDE SCAN MCV (External) 79(L) 80 - 100 fL LABDE SCAN MCH (External) 27.9 26.0 - 34.0 pg LABDE SCAN MCHC (External) 35.2 32.0 - 36.0 g/dL LABDE SCAN RDW (External) 15.4 11.5 - 15.5 % LABDE SCAN Platelet Count (External) 132(L) 140 - 440 thou/cu mm LABDE SCAN Blood specimen (specimen) 04/06/2017 12:14 PM [facility] [employer] [facility] [facility] [employer] Narrative SAMANTHA PFT - 04/08/2017 4:18 PM [facility] [employer] [facility] [employer] Verified by Myrna Monreal on 04/08/2017. Aime Vu MD LAB - BLOOD ORDERA BLES SAMANTHA PFT LABDE SCAN * (ABNORMAL) Basic metabolic panel (04/06/2017 12:14 PM [employer] [employer] [employer]) Sodium (External) 139 135 - 145 mmol/L LABDE SCAN Potassium (External) 3.3(L) 3.5 - 5.0 mmol/L LABDE SCAN Chloride (External) 107 98 - 110 mmol/L LABDE SCAN CO2 (External) 19(L) 21 - 31 mmol/l LABDE SCAN Anion Gap (External) 13 5 - 18 LABDE SCAN Glucose (External) 186(H) 65 - 100 mg/dL LABDE SCAN Calcium (External) 8.1(L) 8.5 - 10.5 mg/dL LABDE SCAN Urea Nitrogen (External) 43(H) 8 - 25 mg/dL LABDE SCAN Creatinine (External) 2.81(H) 0.72 - 1.25 mg/dl LABDE SCAN BUN/Creatinine Ratio (External) 15 10 - 20 LABDE SCAN GFR Estimated (if ) (External) 28(L) >60 ml/min/1.7 3m2 LABDE SCAN GFR Estimated (External) 23(L) >60 ml/min/1.7 3m2 LABDE SCAN Blood specimen (specimen) 04/06/2017 12:14 PM [facility] [employer] [facility] [employer] Narrative SAMANTHA PFT - 04/08/2017 4:18 PM [facility] [employer] [facility] [facility] [employer] Verified by Myrna Monreal on 04/08/2017. 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, 07/10/16 rectal swab 06/21/2016 06/21/2016 documented as of this encounter Care Teams Dough Brake Machine Operator Relationship Specialty Start Date End Date Rubén Boyle MD PCP - General Family Practice 03/08/16 Pamela Blanco NP [facility] [address] [place], [place] [address] Referring Physician 07/13/16 Pedro Segura MD [facility] [address] [place], [place] [address] Nephrology 10/03/16 Freddy Craft MD 516 [facility] 2A [place], [place] [address] Assigned Gastroenterology Provider 02/08/20 Abdifatah Van MD 717 [facility] [address] [place], [place] [address] Assigned Nephrology Provider 07/13/20 11/07/23 Nicole Carranza NP [address] [place] [address] 508 [place] [address] Assigned Heart and Vascular Provider 01/09/22 Andressa Ruiz PA-C 420 [facility] 803 [place] [address] Physician Shovel Handle Assembler Endocrinology, Diabetes, and Metabolism 03/01/22 Ashlyn Storm, RN [facility] [address] [place] [address] Registered Nurse 03/03/22 09/15/22 Rubén Gunter [facility] [address] [place] [address] Assigned MTM Pharmacist 02/27/22 Andressa Ruiz PA-C [address] [place] [address] 803 [place] [address] Assigned Endocrinology Provider 03/13/22 09/07/23 Suzan Harry MD [address] [place] [address] Nephrology 06/30/23 Yasmeen Powers MD [address] [place] [address] Nephrology 10/24/23 Yasmeen Powers MD [address] [place] [address] Assigned Nephrology Provider 11/08/23 documented as of this encounter
--- OUTSIDE RECORDS SUMMARY | 2023-12-15 10:11 | XMS_ITS | Encounter Summary ---
Author Organization [facility] Address [address] [place] [address] Care Team Providers Care Terra Cotta Setter Name Role Phone Rubén Boyle MD Primary Care Provider Pamela Blanco SHUTTLER Unavailable Pedro Segura MD Unavailable Freddy Craft MD Unavailable Abdifatah Van MD Unavailable Nicole Carranza SHUTTLER Unavailable [phone] Andressa Ruiz-C Unavailable Ashlyn Storm RN Unavailable Rubén Gunter [facility] Unavailable Andressa Ruiz-C Unavailable Suzan Harry MD Unavailable [phone] Yasmeen Powers MD Unavailable Yasmeen Powers MD Unavailable [phone] Encounter Details Date Type Department Care Team (Late st Contact Info) Description 03/23/2017 External Order Results [facility] [address] [place] [address] Social History Tobacco Use Types [...] Procedure Name Priority Date/Time Associated Diagnosis Comments HEMOGLOBIN A1C Routine 03/21/2017 10:40 AM EXCEL ANALYST documented in this encounter Results * Hemoglobin A1c (03/21/2017 10:40 AM EXCEL ANALYST) Hemoglobin A1C (External) 5.2 <=6.4 % LABDE SCAN Blood specimen (specimen) 03/21/2017 10:40 AM EXCEL ANALYST Narrative SAMANTHA PFT - 03/23/2017 11:52 AM EXCEL ANALYST Verified by Rhianonn Cain on 03/23/2017. 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, 07/10/16 rectal swab 06/21/2016 06/21/2016 documented as of this encounter Care Teams Terra Cotta Setter Relationship Specialty Start Date End Date Rubén Boyle MD PCP - General Family Practice 03/08/16 Pamela Blanco NP [facility] [address] [place] [address] Referring Physician 07/13/16 Pedro Segura MD [facility] [address] [place] [address] Nephrology 10/03/16 Freddy Craft MD 516 [facility] [address] [place] [address] Assigned Gastroenterology Provider 02/08/20 Abdifatah Van MD [address] [facility] [address] [place] [address] Assigned Nephrology Provider 07/13/20 11/07/23 Nicole Carranza NP 420 [facility] 508 [place] [address] Assigned Heart and Vascular Provider 01/09/22 Andressa Ruiz PA-C 420 [facility] 803 [place] [address] Physician Home Care Music Therapist Endocrinology, Diabetes, and Metabolism 03/01/22 Ashlyn Storm RN [facility] 7[address] [place] [address] Registered Nurse 03/03/22 09/15/22 Rubén Gunter [facility] [address] [place] [address] Assigned MTM Pharmacist 02/27/22 Andressa Ruiz PA-C [address] [address] Assigned Endocrinology Provider 03/13/22 09/07/23 Suzan Harry MD 420 [place] [address] Nephrology 06/30/23 Yasmeen Powers MD 500 [place], [place] [address] Nephrology 10/24/23 Yasmeen Powers MD [address] [place], [place] 555675 Assigned Nephrology Provider 11/08/23 documented as of this encounter
--- OUTSIDE RECORDS SUMMARY | 2023-12-15 10:12 | XMS_ITS | Encounter Summary ---
Author Organization [facility] Address [address] [place] [address] Care Team Providers Care Crisis Worker Name Role Phone Rubén Boyle MD Primary Care Provider Pamela Blanco RECYCLING ASSISTANT Unavailable Pedro Segura MD Unavailable [phone] Freddy Craft MD Unavailable [phone] Abdifatah Van MD Unavailable Nicole Carranza RECYCLING ASSISTANT Unavailable Andressa Ruiz-C Unavailable [phone] Ashlyn Storm RN Unavailable Rubén Gunter [facility] Unavailable Andressa Ruiz-C Unavailable Suzan Harry MD Unavailable [phone] Yasmeen Powers MD Unavailable Yasmeen Powers MD Unavailable [phone] Encounter Details Date Type Department Care Team (Late st Contact Info) Description 02/08/2017 External Order Results [facility] [address] [place] [address] Social History Tobacco Use Types [...] Associated Diagnosis Comments EXTERNAL LAB RESULTS Routine 02/08/2017 7:25 AM CDT documented in this encounter Results * (ABNORMAL) TXP External Lab Result (02/08/2017 7:25 AM CDT) Sodium (External) 141 135 - 145 mmol/L LABDE SCAN Potassium (External) 4.9 3.5 - 5.0 mmol/L LABDE SCAN Chloride (External) 105 98 - 110 mmol/L LABDE SCAN CO2 (External) 27 21 - 31 mmol/L LABDE SCAN Anion Gap (External) 9 5 - 18 LABDE SCAN Glucose (External) 167(H) 65 - 100 mg/dL LABDE SCAN Calcium (External) 9.2 8.5 - 10.5 mg/dL LABDE SCAN Urea Nitrogen (External) 43(H) 8 - 25 mg/dL LABDE SCAN Creatinine (External) 2.25(H) 0.72 - 1.25 mg/dL LABDE SCAN BUN/Creatinine Ratio (External) 19 10 - 20 LABDE SCAN GFR Estimated (if ) (External) 36(L) >60 ml/min/1. 73m2 LABDE SCAN GFR Estimated (External) 30(L) >60 ml/min/1. 73m2 LABDE SCAN Albumin (External) 4.0 3.2 - 4.6 g/dL LABDE SCAN Protein Total (External) 6.8 6.0 - 8.0 g/dL LABDE SCAN Bilirubin Total (External) 0.7 0.2 - 1.2 mg/dL LABDE SCAN Bilirubin Direct (External) 0.3 0.1 - 0.5 mg/dL LABDE SCAN Alk Phosphatase (External) 77 50 - 136 [place]/L LABDE SCAN ALT (External) 10 8 - 45 [place]/L LABDE SCAN AST (External) 14 2 - 40 [place]/L LABDE SCAN Magnesium (External) 2.1 1.6 - 2.6 mg/dL LABDE SCAN Phosphorus (External) 4.2 2.3 - 4.7 mg/dL LABDE SCAN WBC Count (External) 2.5(L) 4.5 - 11.0 thou/cu mm LABDE SCAN RBC Count (External) 3.74(L) 4.30 - 5.90 mil/cu mm LABDE SCAN Hemoglobin (External) 10.5(L) 13.5 - 17.5 g/dL LABDE SCAN Hematocrit (External) 32.4(L) 37.0 - 53.0 % LABDE SCAN MCV (External) 87 80 - 100 fl LABDE SCAN MCH (External) 28.1 26.0 - 34.0 pg LABDE SCAN MCHC (External) 32.4 32.0 - 36.0 g/dL LABDE SCAN RDW (External) 13.8 11.5 - 15.5 % LABDE SCAN Platelet Count (External) 122(L) 140 - 440 thou/cu mm LABDE SCAN MPV (External) 9.6 6.5 - 11.0 fL LABDE SCAN Tacrolimus(FK-50 6) (External) 8.9 ng/mL LABDE SCAN Tacrolimus Last Dose (External) 02/07/2017 at 8:00 PM LABDE SCAN 02/08/2017 7:25 AM CDT Narrative SAMANTHA PFT - 02/09/2017 1:46 PM CDT Verified by Cruzito Marlow on 02/08/2017. Verified by Cruzito Marlow on 02/09/2017. 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, 07/10/16 rectal swab 06/21/2016 06/21/2016 documented as of this encounter Care Teams Crisis Worker Relationship Specialty Start Date End Date Rubén Boyle MD PCP - General Family Practice 03/08/16 Pamela Blanco RECYCLING ASSISTANT [facility] [address] [place] [address] Referring Physician 07/13/16 Pedro Segura MD [facility] [address] [place] [address] Nephrology 10/03/16 Freddy Craft MD 516 [facility] [address] [place], [place] [address] Assigned Gastroenterology Provider 02/08/20 Abdifatah Van MD 717 [facility] [address] [place], [place] [address] Assigned Nephrology Provider 07/13/20 11/07/23 Nicole Carranza NP 420 [facility] 508 [place], [place] [address] Assigned Heart and Vascular Provider 01/09/22 Andressa Ruiz PA-C 420 [facility] 803 [place], [place] [address] Physician Business Line Manager Endocrinology, Diabetes, and Metabolism 03/01/22 Ashlyn Storm, RN [facility] 7[address] [place], [place] [address] Registered Nurse 03/03/22 09/15/22 Rubén Gunter [facility] [address] [place], [place] [address] Assigned MTM Pharmacist 02/27/22 Andressa Ruiz PA-C 420 [facility] 803 [place] [address] Assigned Endocrinology Provider 03/13/22 09/07/23 Suzan Harry MD 420 [place], [place] [address] Nephrology 06/30/23 Yasmeen Powers MD 500 [place], [place] 120[address]85 Nephrology 10/24/23 Yasmeen Powers MD [address] [place], [place] 492545 Assigned Nephrology Provider 11/08/23 documented as of this encounter
--- OUTSIDE RECORDS SUMMARY | 2023-12-15 10:12 | XMS_ITS | Encounter Summary ---
Author Organization [place] Address [address] [place] [address] Care Team Providers Care Special Assets Officer Name Role Phone Rubén Boyle MD Primary Care Provider [phone] Pamela Blanco CASTING MACHINE SET UP OPERATOR Unavailable [phone] Pedro Segura MD Unavailable Freddy Craft MD Unavailable Abdifatah Van MD Unavailable Nicole Carranza CASTING MACHINE SET UP OPERATOR Unavailable Andressa Ruiz-C Unavailable Ashlyn Storm RN Unavailable Rubén Gunter [facility] Unavailable Andressa Ruiz-C Unavailable [phone] Suzan Harry MD Unavailable [phone] Yasmeen Powers MD Unavailable Yasmeen Powers MD Unavailable [phone] Encounter Details Date Type Department Care Team (Late st Contact Info) Description 11/23/2016 External Order Results [facility] [address] [place] [address] Social History Tobacco Use Types [...] Associated Diagnosis Comments EXTERNAL LAB RESULTS Routine 11/23/2016 10:26 AM CDT documented in this encounter Results * (ABNORMAL) TXP External Lab Result (11/23/2016 10:26 AM CDT) Sodium (External) 140 135 - 145 mmol/L LABDE SCAN Potassium (External) 5.3(H) 3.5 - 5.0 mmol/L LABDE SCAN Chloride (External) 109 98 - 110 mmol/L LABDE SCAN CO2 (External) 27 21 - 31 mmol/L LABDE SCAN Anion Gap (External) 4(L) 6 - 18 LABDE SCAN Glucose (External) 169(H) 85 - 100 mg/dl LABDE SCAN Calcium (External) 9.7 8.5 - 10.5 mg/dl LABDE SCAN Urea Nitrogen (External) 28(H) 8 - 25 mg/dL LABDE SCAN Creatinine (External) 1.63(H) 0.72 - 1.25 mg/dL LABDE SCAN BUN/Creatinine Ratio (External) 17 10 - 20 LABDE SCAN GFR Estimated (if ) (External) 52(L) >60 ml/mIn/1. 73m2 LABDE SCAN GFR Estimated (External) 43(L) >60 ml/mIn/1. 73m2 LABDE SCAN Albumin (External) 4.1 3.2 - 4.6 g/dl LABDE SCAN Protein Total (External) 6.5 6.0 - 8.0 g/dl LABDE SCAN Bilirubin Total (External) 1.1 0.2 - 1.2 mg/dl LABDE SCAN Bilirubin Direct (External) 0.4 0.1 - 0.5 mg/dl LABDE SCAN Alk Phosphatase (External) 69 50 - 136 Viktor[place]/L LABDE SCAN ALT (External) 7(L) 8 - 45 [place]tor[place]/L LABDE SCAN AST (External) 15 2 - 40 IU/L LABDE SCAN Magnesium (External) 1.8 1.6 - 2.6 mg/dl LABDE SCAN Phosphorus (External) 4.4 2.3 - 4.7 mg/dl LABDE SCAN WBC Count (External) 2.7(L) 4.5 - 11.0 thou/cu mm LABDE SCAN RBC Count (External) 3.71(L) 4.30 - 5.90 mil/cu mm LABDE SCAN Hemoglobin (External) 10.6(L) 13.5 - 17.5 g/dL LABDE SCAN Hematocrit (External) 31.2(L) 37.0 - 53.0 % LABDE SCAN MCV (External) 84 80 - 100 fl LABDE SCAN MCH (External) 28.6 26.0 - 34.0 pg LABDE SCAN MCHC (External) 34.0 32.0 - 36.0 g/dl LABDE SCAN RDW (External) 13.7 11.5 - 15.5 % LABDE SCAN Platelet Count (External) 113(L) 140 - 440 thou/cu mm LABDE SCAN MPV (External) 9.6 8.5 - 11.0 fL LABDE SCAN Tacrolimus(FK-50 6) (External) 5.7(L) 8 - 10 ng/ml LABDE SCAN Tacrolimus Last Dose (External) 11/22/2016 at 2000 LABDE SCAN Scan Lab Results (External) View image LABDE SCAN 11/23/2016 10:2 6 AM CDT Narrative SAMANTHA MARTINEZT - 11/26/2016 1:20 PM CDT Verified by Rhiannon Cain on 11/23/2016. Verified by Rhiannon Cain on 11/24/2016. Verified by Rhiannon Cain on 11/26/2016. 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, 07/10/16 rectal swab 06/21/2016 06/21/2016 documented as of this encounter Care Teams Special Assets Officer Relationship Specialty Start Date End Date Rubén Boyle MD PCP - General Family Practice 03/08/16 Pamela Blanco NP [facility] [address] [place] [address] Referring Physician 07/13/16 Pedro Segura MD [facility] [address] [place] [address] Nephrology 10/03/16 Freddy Craft MD 516 [facility] [place], [place] [address] Assigned Gastroenterology Provider 02/08/20 Abdifatah Van MD 717 [facility] [address] [place] [address] Assigned Nephrology Provider 07/13/20 11/07/23 Nicole Carranza NP 420 [facility] 508 [place], [place] [address] Assigned Heart and Vascular Provider 01/09/22 Andressa Ruiz PA-C 420 [facility] 803 [place], [place] [address] Physician Air Conditioning Sheet Metal Installer Endocrinology, Diabetes, and Metabolism 03/01/22 Ashlyn Storm, RN [facility] [address] [facility] [place], [place] [address] Registered Nurse 03/03/22 09/15/22 Rubén Gunter [facility] 9[address] [place] [address] Assigned MTM Pharmacist 02/27/22 Andressa Ruiz PA-C 420 [facility] 803 [place], [place] [address]165 Assigned Endocrinology Provider 03/13/22 09/07/23 Suzan Harry MD 420 [place], [place] [address] Nephrology 06/30/23 Yasmeen Powers MD 500 [place], [place] [address] Nephrology 10/24/23 Yasmeen Powers MD 500 [place] [address] Assigned Nephrology Provider 11/08/23 documented as of this encounter
--- OUTSIDE RECORDS SUMMARY | 2023-12-15 10:12 | XMS_ITS | Encounter Summary ---
Author Organization [facility] Address [address] [place] [address] Care Team Providers Care Gill Tender Name Role Phone Rubén Boyle MD Primary Care Provider Pamela Blanco ADMINISTRATIVE SUPPORT SPECIALIST Unavailable Pedro Segura MD Unavailable Freddy Craft MD Unavailable [phone] Abdifatah Van MD Unavailable Nicole Carranza ADMINISTRATIVE SUPPORT SPECIALIST Unavailable Andressa Ruiz-C Unavailable [phone] Ashlyn Storm RN Unavailable Rubén Gunter [facility] Unavailable Andressa Ruiz-C Unavailable [phone] Suzan Harry MD Unavailable [phone] Yasmeen Powers MD Unavailable Yasmeen Powers MD Unavailable [phone] Encounter Details Date Type Department Care Team (Late st Contact Info) Description 01/26/2017 External Order Results [facility] [address] [place] [address] Social History Tobacco Use Types [...] Associated Diagnosis Comments EXTERNAL LAB RESULTS Routine 01/17/2017 2:37 PM CDT documented in this encounter Results * (ABNORMAL) TXP External Lab Result (01/17/2017 2:37 PM CDT) Sodium (External) 137 135 - 145 mmol/L LABDE SCAN Potassium (External) 5.7(H) 3.5 - 5.0 mmol/L LABDE SCAN Chloride (External) 108 9.8 - 110 mmol/L LABDE SCAN CO2 (External) 22 21 - 31 mmol/L LABDE SCAN Anion Gap (External) 7 5 - 18 LABDE SCAN Glucose (External) 232(H) 65 - 100 mg/dL LABDE SCAN Calcium (External) 9.1 8.5 - 10.5 mg/dL LABDE SCAN Urea Nitrogen (External) 41(H) 8 - 25 mg/dL LABDE SCAN Creatinine (External) 1.98(H) 0.72 - 1.25 mg/dL LABDE SCAN BUN/Creatinine Ratio (External) 21(H) 10 - 20 LABDE SCAN GFR Estimated (if ) (External) 41(L) >60 ml/min/1.7 3m2 LABDE SCAN GFR Estimated (External) 37(L) >60 ml/min/1.7 3 m(2) LABDE SCAN Troponin I (External) <0.010 <0.034 ng/mL LABDE SCAN INR (External) 1.1 <1.3 LABDE SCAN PT - Prothrombine Time (External) 13.8 11.7 - 14.1 sec LABDE SCAN WBC Count (External) 2.7(L) 4.5 - 11.0 thou/cu mm LABDE SCAN RBC Count (External) 3.44(L) 4.30 - 5.90 mil/cu mm LABDE SCAN Hemoglobin (External) 9.9(L) 13.5 - 17.5 g/dL LABDE SCAN Hematocrit (External) 29.3(L) 37.0 - 53.0 % LABDE SCAN MCV (External) 85 80 - 100 fl LABDE SCAN MCH (External) 28.8 26.0 - 34.0 pg LABDE SCAN MCHC (External) 33.8 32.0 - 36.0 g/dL LABDE SCAN RDW (External) 14.7 11.5 - 15.5 % LABDE SCAN Platelet Count (External) 127(L) 140 - 440 thou/cu mm LABDE SCAN MPV (External) 9.8 6.5 - 11.0 fL LABDE SCAN 01/17/2017 2:37 PM CDT Narrative SAMANTHA PFT - 01/26/2017 5:31 AM CDT Verified by Rhiannon Cain on 01/26/2017. Patient Reported LABORATORY BREEZE PFT LABDE SCAN documented in this encounter Visit Diagnoses Not on filedocumented in this encounter Additional Health Concerns Infection Onset Date Last Indicated Resolved Time 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/16 urine, 07/10/16 rectal swab 06/21/2016 06/21/2016 documented as of this encounter Care Teams Gill Tender Relationship Specialty Start Date End Date Rubén Boyle MD PCP - General Family Practice 03/08/16 Pamela Blanco NP [facility] [address] [place], [place] 85[address] Referring Physician 07/13/16 Pedro Segura MD [facility] [address] [place], [place] 9[address] Nephrology 10/03/16 Freddy Craft MD 516 [facility] [address] [place], [place] [address]135 Assigned Gastroenterology Provider 02/08/20 Abdifatah Van MD 717 [facility] [address] [place], [place] 8[address]384 Assigned Nephrology Provider 07/13/20 11/07/23 Nicole Carranza, GERMANIA 420 [facility] 508 [place], [place] 49[address]75 Assigned Heart and Vascular Provider 01/09/22 Andressa Ruiz PA-C 420 [facility] 803 [place], [place] 9[address]75 Physician Acute Care Physician Endocrinology, Diabetes, and Metabolism 03/01/22 Ashlyn Storm RN [facility] 711 [place] [address] Registered Nurse 03/03/22 09/15/22 Rubén Gunter [facility] 909 [facility] [address] [place], [place] [address] Assigned MTM Pharmacist 02/27/22 Andressa Ruiz PA-C 420 [facility] 803 [place], [place] 486305 Assigned Endocrinology Provider 03/13/22 09/07/23 Suzan Harry MD 420 [place] [address] Nephrology 06/30/23 Yasmeen Powers MD 500 [place] [address] Nephrology 10/24/23 Yasmeen Powers MD 500 [place] [address] Assigned Nephrology Provider 11/08/23 documented as of this encounter
--- OUTSIDE RECORDS SUMMARY | 2023-12-15 10:12 | XMS_ITS | Encounter Summary ---
Author Organization [facility] Address [address] [place] [address] Care Team Providers Care Boom Pump Operator Name Role Phone Rubén Boyle MD Primary Care Provider Pamela Blanco GRAB HOOKER Unavailable Pedro Segura MD Unavailable [phone] Freddy Craft MD Unavailable Abdifatah Van MD Unavailable Nicole Carranza GRAB HOOKER Unavailable [phone] Andressa Ruiz-C Unavailable [phone] Ashlyn Storm RN Unavailable Rubén Gunter [facility] Unavailable Andressa Ruiz-C Unavailable Suzan Harry MD Unavailable [phone] Yasmeen Powers MD Unavailable [phone] Yasmeen Powers MD Unavailable [phone] Encounter Details Date Type Department Care Team (Latest Contact Info) Description 03/09/[address] 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) MAGNESIUM Routine 03/07/2017 8:25 AM SHEET ROCK APPLIER Long-term use of immunosuppressant medication 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) HEPATIC FUNCTION PANEL Routine 03/07/2017 8:25 AM SHEET ROCK APPLIER Long-term use of immunosuppressant medication 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) BASIC METABOLIC PANEL Routine 03/07/2017 8:25 AM SHEET ROCK APPLIER Long-term use of immunosuppressant medication 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) CBC WITH PLATELETS Routine 03/07/2017 8: 25 AM SHEET ROCK APPLIER Long-term use of immunosuppressant medication 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) documented in this encounter Results * Hepatic panel (03/07/2017 8:25 AM SHEET ROCK APPLIER) Albumin (External) 3.9 3.2 - 4.6 g/dL [...] 40 IU/L LABDE SCAN Blood specimen (specimen) 03/07/2017 8:25 AM SHEET ROCK APPLIER Narrative BREEZE PFT - 03/09/2017 11:44 AM SHEET ROCK APPLIER Verified by Rhiannon Cain on 03/09/2017. Aime Vu MD LAB - BLOOD ORDERA BLES Performing Organization Address [facility] Co de Phone Number BREEZE PFT LABDE SCAN * (ABNORMAL) Magnesium (03/07/2017 8:25 AM SHEET ROCK APPLIER) Magnesium (External) 1.3(L) 1.6 - 2.6 mg/dL LABDE SCAN Blood specimen (specimen) 03/07/2017 8:25 AM SHEET ROCK APPLIER Narrative BREEZE PFT - 03/09/2017 11:44 AM SHEET ROCK APPLIER Verified by Rhiannon Cain on 03/09/2017. Aime Vu MD LAB - BLOOD ORDERA BLEMarkel Performing Organization Address [facility] Co de Phone Number BREEZE PFT LABDE SCAN * Phosphorus (03/07/2017 8:25 AM SHEET ROCK APPLIER) Phosphorus (External) 3.5 2.3 - 4.7 mg/dL LABDE SCAN Blood specimen (specimen) 03/07/2017 8:25 AM SHEET ROCK APPLIER Narrative BREEZE PFT - 03/09/2017 11:44 AM SHEET ROCK APPLIER Verified by Rhiannon Cain on 03/09/2017. Aime Vu MD LAB - BLOOD ORDERA BLEMarkel Performing Organization Address [facility] Co de Phone Number BREEZE PFT LABDE SCAN * (ABNORMAL) Basic metabolic panel (03/07/2017 8:25 AM SHEET ROCK APPLIER) Sodium (External) 140 135 - 145 mmol/L LABDE SCAN Potassium (External) 3.8 3.5 - 5.0 mmol/L LABDE SCAN Chloride (External) 108 98 - 110 mmol/L LABDE SCAN CO2 (External) 25 21 - 31 mmol/L LABDE SCAN Anion Gap (External) 7 5 - 18 LABDE SCAN Glucose (External) 83 65 - 100 mg/dL LABDE SCAN Calcium (External) 9.2 8.5 - 10.5 mg/dL LABDE SCAN Urea Nitrogen (External) 31(H) 8 - 25 mg/dL LABDE SCAN Creatinine (External) 2.14(H) 0.72 - 1.25 mg/dL LABDE SCAN BUN/Creatinine Ratio (External) 14 10 - 20 LABDE SCAN GFR Estimated (if ) (External) 38(L) >60 ml/min/1.7 3m2 LABDE SCAN GFR Estimated (External) 31(L) >60 ml/min/1.7 3m2 LABDE SCAN Blood specimen (specimen) 03/07/2017 8:25 AM SHEET ROCK APPLIER Narrative SAMANTHA PFT - 03/09/2017 11:44 AM SHEET ROCK APPLIER Verified by Rhiannon Cain on 03/09/2017. Aime Vu MD LAB - BLOOD ORDERA BLES SAMANTHA PFT LABDE SCAN * (ABNORMAL) CBC with platelets (03/07/2017 8:25 AM SHEET ROCK APPLIER) WBC Count (External) 4.9 4.5 - 11.0 thou/cu mm LABDE SCAN RBC Count (External) 4.16(L) 4.30 - 5.90 mil/cu mm LABDE SCAN Hemoglobin (External) 11.6(L) 13.5 - 17.5 g/dL LABDE SCAN Hematocrit (External) 34.3(L) 37.0 - 53.0 % LABDE SCAN MCV (External) 83 80 - 100 fL LABDE SCAN MCH (External) 27.9 26.0 - 34.0 pg LABDE SCAN MCHC (External) 33.8 32.0 - 36.0 g/dL LABDE SCAN RDW (External) 13.6 11.5 - 15.5 % LABDE SCAN Platelet Count (External) 138(L) 140 - 440 thou/cu mm LABDE SCAN Blood specimen (specimen) 03/07/2017 8:25 AM SHEET ROCK APPLIER Narrative AMNAE PFT - 03/09/2017 11:44 AM SHEET ROCK APPLIER Verified by Rhiannon Cain on 03/09/2017. Aime Vu MD LAB - BLOOD ORDERA [...] documented as of this encounter Care Teams Boom Pump Operator Relationship Specialty Start Date End Date Rubén Boyle MD PCP - General Family Practice 03/08/16 Pamela Blanco NP [facility] [address] [place], [place] [address] Referring Physician 07/13/16 Pedro Segura MD [facility] [address] [place], [place] [address]87 Nephrology 10/03/16 Freddy Craft MD 516 [facility] 2[address] [place], [place] [id number] Assigned Gastroenterology Provider 02/08/20 Abdifatah Van MD [address] [facility] [address] [place] [address] Assigned Nephrology Provider 07/13/20 11/07/23 Nicole Carranza NP 420 [facility] 508 [place] [address] Assigned Heart and Vascular Provider 01/09/22 Andressa Ruiz PA-C [address] [address] Physician Roller Print Tender Endocrinology, Diabetes, and Metabolism 03/01/22 Ashlyn Storm, RN [facility] 711 [place] [address] Registered Nurse 03/03/22 09/15/22 Rubén Gunter [facility] [address] [place] [address] Assigned MTM Pharmacist 02/27/22 Andressa Ruiz PA-C [address] [address] Assigned Endocrinology Provider 03/13/22 09/07/23 Suzan Harry MD [address] [place] [address] Nephrology 06/30/23 Yasmeen Powers MD 500 [place] [address] Nephrology 10/24/23 Yasmene Powers MD 500 [place] [address] Assigned Nephrology Provider 11/08/23 documented as of this encounter
--- OUTSIDE RECORDS SUMMARY | 2023-12-15 10:12 | XMS_ITS | Encounter Summary ---
Author Organization [facility] Address [address] [place] [address] Care Team Providers Care Consultant Electronics Name Role Phone Rubén Boyle MD Primary Care Provider [phone] Pamela Blanco ROPE COILING MACHINE OPERATOR Unavailable [phone] Pedro Segura MD Unavailable Freddy Craft MD Unavailable [phone] Abdifatah Van MD Unavailable Nicole Carranza ROPE COILING MACHINE OPERATOR Unavailable Andressa Ruiz-C Unavailable [phone] Ashlyn Storm RN Unavailable Rubén Gunter [facility] Unavailable Andressa Ruiz-C Unavailable [phone] Suzan Harry MD Unavailable [phone] Yasmeen Powers MD Unavailable Yasmeen Powers MD Unavailable [phone] Encounter Details Date Type Department Care Team (Late st Contact Info) Description 01/12/2017 External Order Results [facility] [address] [place] [address] Social History Tobacco Use Types [...] Associated Diagnosis Comments EXTERNAL LAB RESULTS Routine 01/12/2017 8:33 AM CDT documented in this encounter Results * (ABNORMAL) TXP External Lab Result (01/12/2017 8:33 AM CDT) Sodium (External) 140 135 - 145 mmol/L LABDE SCAN Potassium (External) 5.5(H) 3.5 - 5.0 mmol/L LABDE SCAN Chloride (External) 109 98 - 110 mmol/L LABDE SCAN CO2 (External) 22 21 - 31 mmol/L LABDE SCAN Anion Gap (External) 9 5 - 18 LABDE SCAN Glucose (External) 100 65 - 100 mg/dL LABDE SCAN Calcium (External) 9.3 8.5 - 10.5 mg/dL LABDE SCAN Urea Nitrogen (External) 43(H) 8 - 25 mg/dL LABDE SCAN Creatinine (External) 1.91(H) 0.72 - 1.25 mg/dL LABDE SCAN BUN/Creatinine Ratio (External) 23(H) 10 - 20 LABDE SCAN GFR Estimated (if ) (External) 43(L) >60 ml/min/1.73 m(2) LABDE SCAN GFR Estimated (External) 36(L) >60 ml/min/1.73 m(2) LABDE SCAN Albumin (External) 3.8 3.2 - 4.6 g/dL LABDE SCAN Protein Total (External) 6.4 6.0 - 8.0 g/dL LABDE SCAN Bilirubin Total (External) 0.8 0.2 - 1.2 mg/dL LABDE SCAN Bilirubin Direct (External) 0.3 0.1 - 0.5 mg/dL LABDE SCAN Alk Phosphatase (External) 76 50 - 136 IU/L LABDE SCAN ALT (External) 9 8 - 45 IU/L LABDE SCAN AST (External) 15 2 - 40 IU/L LABDE SCAN Magnesium (External) 1.9 1.6 - 2.6 mg/dL LABDE SCAN Phosphorus (External) 4.4 2.3 - 4.7 mg/dL LABDE SCAN WBC Count (External) 2.0(L) 4.5 - 11.0 thou/cu mm LABDE SCAN RBC Count (External) 3.56(L) 4.30 - 5.90 mil/cu mm LABDE SCAN Hemoglobin (External) 10.1(L) 13.5 - 17.5 g/dL LABDE SCAN Hematocrit (External) 30.5(L) 31.0 - 53.0 % LABDE SCAN MCV (External) 86 80 - 100 fL LABDE SCAN MCH (External) 28.4 26.0 - 34.0 pg LABDE SCAN MCHC (External) 33.1 32.0 - 38.0 % LABDE SCAN RDW (External) 14.6 11.5 - 15.5 % LABDE SCAN Platelet Count (External) 116(L) 140 - 440 thou/cu mm LABDE SCAN MPV (External) 9.6 6.5 - 11.0 fL LABDE SCAN Tacrolimus(FK-5 06) (External) 5.9 5 - 8 ng/mL LABDE SCAN Tacrolimus Last Dose (External) 01/11/17 at 2000 LABDE SCAN BK Virus Quant Rapid PCR (External) None detected None detected LABDE SCAN 01/12/2017 8:33 AM CDT Narrative SAMANTHA MARTINEZT - 01/17/2017 8:07 AM CDT Verified by Rhiannon Cain on 01/12/2017. Verified by Myrna Monreal on 01/13/2017. Verified by Myrna Monreal on 01/17/2017. 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, 07/10/16 rectal swab 06/21/2016 06/21/2016 documented as of this encounter Care Teams Consultant Electronics Relationship Specialty Start Date End Date Rubén Boyle MD PCP - General Family Practice 03/08/16 Pamela Blanco NP [facility] [address] [place] [address] Referring Physician 07/13/16 Pedro Segura MD [facility] [address] [place] [address] Nephrology 10/03/16 Freddy Craft MD [facility] [place], [place] [id number] Assigned Gastroenterology Provider 02/08/20 Abdifatah Van MD 717 [facility] [address] [place] [address] Assigned Nephrology Provider 07/13/20 11/07/23 Nicole Carranza NP 420 [facility] 508 [place], [place] [address] Assigned Heart and Vascular Provider 01/09/22 Andressa Ruiz PA-C 420 [facility] 803 [place], [place] [address] Physician Steam Tunnel Feeder Endocrinology, Diabetes, and Metabolism 03/01/22 Ashlyn Storm, RN [facility] 711 [facility] SE [place], [place] [address] Registered Nurse 03/03/22 09/15/22 [address] Gunter [facility] 909 [place] [address] Assigned MTM Pharmacist 02/27/22 Andressa Ruiz PA-C 420 [facility] 803 [place], [place] [address] Assigned Endocrinology Provider 03/13/22 09/07/23 Suzan Harry MD 420 [place], [place] [address] Nephrology 06/30/23 Yasmeen Powers MD 500 [place], [place] [address]615 Nephrology 10/24/23 Yasmeen Powers MD 500 [place] [address] Assigned Nephrology Provider 11/08/23 documented as of this encounter
--- OUTSIDE RECORDS SUMMARY | 2023-12-15 10:12 | XMS_ITS | Encounter Summary ---
Author Organization [facility] Address [address] [place] [address] Care Team Providers Care Varnishing Unit Operator Name Role Phone Rubén Boyle MD Primary Care Provider Pamela Blanco LOG ROPER Unavailable Pedro Segura MD Unavailable [phone] Freddy Craft MD Unavailable Abdifatah Van MD Unavailable Nicole Carranza LOG ROPER Unavailable Andressa Ruiz-C Unavailable Ashlyn Storm RN Unavailable Rubén Gunter [facility] Unavailable Andressa Ruiz-C Unavailable Suzan Harry MD Unavailable [phone] Yasmeen Powers MD Unavailable Yasmeen Powers MD Unavailable [phone] Encounter Details Date Type Department Care Team (Late st Contact Info) Description 12/27/2016 External Order Results [facility] [address] [place] [address] Social History Tobacco Use Types [...] on file documented as of this encounter Progress Notes * Javier Castellano - 12/31/2016 12:58 PM CDTOrder(s) created erroneously. Erroneous order ID: [id number] Order canceled by: SIVA CASTELLANO Order cancel date/time: 12/31/2016 12:58 PM 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, 07/10/16 rectal swab 06/21/2016 06/21/2016 documented as of this encounter Care Teams Varnishing Unit Operator Relationship Specialty Start Date End Date Rubén Boyle MD PCP - General Family Practice 03/08/16 Pamela Blanco NP [facility] [address] [place], [place] [address] Referring Physician 07/13/16 Pedro Segura MD [facility] [address] [place], [place] [address] Nephrology 10/03/16 Freddy Craft MD [address] [place] [address] Assigned Gastroenterology Provider 02/08/20 Abdifatah Van MD 717 [facility] [address] [place] [address] Assigned Nephrology Provider 07/13/20 11/07/23 Nicole Carranza NP 420 [facility] 508 [place], [place] [address] Assigned Heart and Vascular Provider 01/09/22 Andressa Ruiz PA-C 420 [facility] 803 [place], [place] [address] Physician Account Installation Specialist Endocrinology, Diabetes, and Metabolism 03/01/22 Ashlyn Storm RN [facility] 711 [place], [place] [address] Registered Nurse 03/03/22 09/15/22 Rubén Gunter [facility] 909 [place], [place] [address] Assigned MTM Pharmacist 02/27/22 Andressa Ruiz PA-C 420 [facility] 803 [place], [place] [address] Assigned Endocrinology Provider 03/13/22 09/07/23 Suzan Harry MD 420 [place], [place] [address] Nephrology 06/30/23 Yasmeen Powers MD 500 [place], [place] [address]135 Nephrology 10/24/23 Yasmeen Powers MD NPI: [id number] [place] [address] Assigned Nephrology Provider 11/08/23 documented as of this encounter
--- OUTSIDE RECORDS SUMMARY | 2023-12-15 10:12 | XMS_ITS | Encounter Summary ---
Author Organization [facility] Address [address] [place] [address] Care Team Providers Care Transfer Car Operator Drier Name Role Phone Rubén Boyle MD Primary Care Provider Pamela Blanco SETTER UP Unavailable Pedro Segura MD Unavailable Freddy Craft MD Unavailable Abdifatah Van MD Unavailable Nicole Carranza SETTER UP Unavailable Andressa Ruiz-C Unavailable Ashlyn Storm RN Unavailable Rubén Gunter [facility] Unavailable Andressa Ruiz-C Unavailable [phone] Suzan Harry MD Unavailable [phone] Yasmeen Powers MD Unavailable [phone] Yasmeen Powers MD Unavailable [phone] Encounter Details Date Type Department Care Team (Late st Contact Info) Description 01/17/2017 External Order Results [facility] [address] [place] [address] Social History Tobacco Use Types [...] Diagnosis Comments EXTERNAL LAB RESULTS Routine 01/17/2017 10:25 AM CDT documented in this encounter Results * (ABNORMAL) TXP External Lab Result (01/17/2017 10:25 AM CDT) Sodium (External) 138 135 - 145 mmol/L LABDE SCAN Potassium (External) 6.5(HH) 3.5 - 5.0 mmol/L LABDE SCAN Chloride (External) 110 98 - 110 mmol/L LABDE SCAN CO2 (External) 23 21 - 31 mmol/L LABDE SCAN Anion Gap (External) 5 5 - 18 LABDE SCAN Glucose (External) 127(H) 65 - 100 mg/dL LABDE SCAN Calcium (External) 9.6 8.5 - 10.5 mg/dL LABDE SCAN Urea Nitrogen (External) 42(H) 8 - 25 mg/dL LABDE SCAN Creatinine (External) 1.95(H) 0.72 - 1.25 mg/dL LABDE SCAN BUN/Creatinine Ratio (External) 22(H) 10 - 20 LABDE SCAN GFR Estimated (if ) (External) 42(L) >60 ml/min/1. 73 m2 LABDE SCAN GFR Estimated (External) 35(L) >60 ml/min/1. 73 m2 LABDE SCAN Albumin (External) 4.0 3.2 - 4.6 g/dL LABDE SCAN Protein Total (External) 6.5 6.0 - 8.0 g/dL LABDE SCAN Bilirubin Total (External) 0.8 0.2 - 1.2 mg/dL LABDE SCAN Bilirubin Direct (External) 0.3 0.1 - 0.5 mg/dL LABDE SCAN Alk Phosphatase (External) 87 50 - 136 IU/L LABDE SCAN ALT (External) 12 8 - 45 IU/L LABDE SCAN AST (External) 14 2 - 40 IU/L LABDE SCAN Magnesium (External) 1.7 1.6 - 2.6 mg/dL LABDE SCAN Phosphorus (External) 4.3 2.3 - 4.7 mg/dL LABDE SCAN WBC Count (External) 2.7(L) 4.5 - 11.0 thou/cu mm LABDE SCAN RBC Count (External) 3.56(L) 4.30 - 5.90 mil/cu mm LABDE SCAN Hemoglobin (External) 10.2(L) 13.5 - 17.5 g/dL LABDE SCAN Hematocrit (External) 30.3(L) 37.0 - 53.0 % LABDE SCAN MCV (External) 85 80 - 100 fL LABDE SCAN MCH (External) 28.7 26.0 - 34.0 pg LABDE SCAN MCHC (External) 33.7 32.0 - 36.0 g/dL LABDE SCAN RDW (External) 14.8 11.5 - 15.5 % LABDE SCAN Platelet Count (External) 116(L) 140 - 440 thou/cu mm LABDE SCAN MPV (External) 9.3 6.5 - 11.0 fL LABDE SCAN Tacrolimus(FK-50 6) (External) 7.4 5 - 8 ng/mL LABDE SCAN Tacrolimus Last Dose (External) Not given LABDE SCAN 01/17/2017 10:2 5 AM CDT Narrative SAMANTHA PFT - 01/19/2017 2:05 PM CDT Verified by Myrna Monreal on 01/17/2017. Verified by Cruzito Marlow on 01/19/2017. 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, 07/10/16 rectal swab 06/21/2016 06/21/2016 documented as of this encounter Care Teams Transfer Car Operator Drier Relationship Specialty Start Date End Date Rubén Boyle MD PCP - General Family Practice 03/08/16 Pamela Blanco SETTER UP [facility] [address] [place] [address] Referring Physician 07/13/16 Pedro Segura MD [facility] [address] [place] [address] Nephrology 10/03/16 Freddy Craft MD 516 [facility] 2A [place], [place] [address] Assigned Gastroenterology Provider 02/08/20 Abdifatah Van MD 717 [facility] [address] [place], [place] [address] Assigned Nephrology Provider 07/13/20 11/07/23 Nicole Carranza NP 420 [facility] 508 [place], [place] [address] Assigned Heart and Vascular Provider 01/09/22 Andressa Ruiz PA-C 420 [facility] 803 [place], [place] [address] Physician Poker Room Manager Endocrinology, Diabetes, and Metabolism 03/01/22 Ashlyn Storm, RN [facility] 711 [place], [place] [id number] Registered Nurse 03/03/22 09/15/22 Rubén Gunter [facility] 909 [place], [place] [id number] Assigned MTM Pharmacist 02/27/22 Andressa Ruiz PA-C 420 [facility] 803 [place], [place] [address] Assigned Endocrinology Provider 03/13/22 09/07/23 Suzan Harry MD [address] [place] [address]605 Nephrology 06/30/23 Yasmeen Powers MD 500 [place], [place] [address] Nephrology 10/24/23 Yasmeen Powers MD 500 [place], [place] [address]25 Assigned Nephrology Provider 11/08/23 documented as of this encounter
--- OUTSIDE RECORDS SUMMARY | 2023-12-15 10:12 | XMS_ITS | Encounter Summary ---
Author Organization [facility] Address [address] [place] [address] Care Team Providers Care Pinking Sewing Machine Operator Name Role Phone Rubén Boyle MD Primary Care Provider Pamela Blanco TIN ROOFER Unavailable Pedro Segura MD Unavailable Freddy Craft MD Unavailable [phone] Abdifatah Van MD Unavailable Nicole Carranza TIN ROOFER Unavailable [phone] Andressa Ruiz-C Unavailable Ashlyn Storm RN Unavailable [phone] Rubén Gunter [facility] Unavailable Andressa Ruiz-C Unavailable Suzan Harry MD Unavailable [phone] Yasmeen Powers MD Unavailable Yasmeen Powers MD Unavailable [phone] Encounter Details Date Type Department Care Team (Latest Contact Info) Description 03/13/2017 External Order Results [facility] [address] [place] [address] Long-term use of immunosuppressant medication; [...] Comments TACROLIMUS BY TANDEM MASS SPECTROMETRY Routine 03/07/2017 8:25 AM CONSUMER SERVICES CONSULTANT Long-term use of immunosuppressant medication 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 Aime Vu MD LAB - BLOOD ORDERA [...] documented as of this encounter Care Teams Pinking Sewing Machine Operator Relationship Specialty Start Date End Date Rubén Boyle MD PCP - General Family Practice 03/08/16 Pamela Blanco TIN ROOFER [facility] [address] [place] [address] Referring Physician 07/13/16 Pedro Segura MD [facility] [address] [place] [address] Nephrology 10/03/16 Freddy Craft MD 516 [facility] [place], [place] [address] Assigned Gastroenterology Provider 02/08/20 Abdifatah Van MD 717 [facility] [address] [place] [address] Assigned Nephrology Provider 07/13/20 11/07/23 Nicole Carranza NP 420 [facility] 508 [place], [place] [address] Assigned Heart and Vascular Provider 01/09/22 Andressa Ruiz PA-C 420 [facility] 803 [place], [place] [address] Physician Inflated Pad Buffer Endocrinology, Diabetes, and Metabolism 03/01/22 Ashlyn Storm, RN [facility] 711 [place] [address] Registered Nurse 03/03/22 09/15/22 Rubén Gunter [facility] 909 [facility] [address] [place], [place] [address] Assigned MTM Pharmacist 02/27/22 Andressa Ruiz PA-C 420 [facility] 803 [place] [address] Assigned Endocrinology Provider 03/13/22 09/07/23 Suzan Harry MD 420 [place] [address] Nephrology 06/30/23 Yasmeen Powers MD 500 [place] [address] Nephrology 10/24/23 Yasmeen Powers MD 500 [place] [address] Assigned Nephrology Provider 11/08/23 documented as of this encounter
--- OUTSIDE RECORDS SUMMARY | 2023-12-15 10:12 | XMS_ITS | Encounter Summary ---
Author Organization [facility] Address [address] [place] [address] Care Team Providers Care President [place] Name Role Phone Rubén Boyle MD Primary Care Provider Pamela Blanco DIRECTOR OF BUSINESS APPLICATIONS Unavailable Pedro Segura MD Unavailable [phone] Freddy Craft MD Unavailable Abdifatah Van MD Unavailable Nicole Carranza DIRECTOR OF BUSINESS APPLICATIONS Unavailable [phone] Andressa Ruiz-C Unavailable [phone] Ashlyn Storm RN Unavailable Rubén Gunter [facility] Unavailable Andressa Ruiz-C Unavailable Suzan Harry MD Unavailable [phone] Yasmeen Powers MD Unavailable Yasmeen Powers MD Unavailable [phone] Encounter Details Date Type Department Care Team (Late st Contact Info) Description 12/22/2016 External Order Results [facility] 9[address] [place] [address] Social History Tobacco Use Types [...] Associated Diagnosis Comments EXTERNAL LAB RESULTS Routine 12/13/2016 8:47 AM CDT documented in this encounter Results * (ABNORMAL) TXP External Lab Result (12/13/2016 8:47 AM CDT) Sodium (External) 140 135 - 145 mmol/L LABDE SCAN Potassium (External) 5.3(H) 3.5 - 5.0 mmol/L LABDE SCAN Chloride (External) 105 98 - 110 mmol/L LABDE SCAN CO2 (External) 27 21 - 31 mmol/L LABDE SCAN Anion Gap (External) 8 5 - 18 LABDE SCAN Glucose (External) 194(H) 65 - 100 mg/dL LABDE SCAN Calcium (External) 9.6 8.5 - 10.5 mg/dL LABDE SCAN Urea Nitrogen (External) 32(H) 8 - 25 mg/dL LABDE SCAN Creatinine (External) 1.97(H) 0.72 - 1.25 mg/dL LABDE SCAN BUN/Creatinine Ratio (External) 16 10 - 20 LABDE SCAN GFR Estimated (if ) (External) 42(L) >60 ml/min/1. 73 m2 LABDE SCAN GFR Estimated (External) 34(L) >60 ml/min/1. 73 m2 LABDE SCAN Albumin (External) 3.8 3.2 - 4.6 g/dL LABDE SCAN Protein Total (External) 6.3 6.0 - 8.0 g/dL LABDE SCAN Bilirubin Total (External) 0.8 0.2 - 1.2 mg/dL LABDE SCAN Bilirubin Direct (External) 0.3 0.1 - 0.5 mg/dL LABDE SCAN Alk Phosphatase (External) 71 50 - 136 IU/L LABDE SCAN ALT (External) 6(L) 8 - 45 IU/L LABDE SCAN AST (External) 13 2 - 40 IU/L LABDE SCAN Magnesium (External) 1.5(L) 1.6 - 2.6 mg/dL LABDE SCAN Phosphorus (External) 4.1 2.3 - 4.7 mg/dL LABDE SCAN WBC Count (External) 2.7(L) 4.5 - 11.0 thou/cu mm LABDE SCAN RBC Count (External) 3.62(L) 4.30 - 5.90 mil/cu mm LABDE SCAN Hemoglobin (External) 10.3(L) 13.5 - 17.5 g/dL LABDE SCAN Hematocrit (External) 30.7(L) 37.0 - 53.0 % LABDE SCAN MCV (External) 85 80 - 100 fL LABDE SCAN MCH (External) 28.5 26.0 - 34.0 pg LABDE SCAN MCHC (External) 33.6 32.0 - 36.0 g/dL LABDE SCAN RDW (External) 14.6 11.5 - 15.5 % LABDE SCAN Platelet Count (External) 108(L) 140 - 440 thou/cu mm LABDE SCAN MPV (External) 9.1 6.5 - 11.0 fL LABDE SCAN Tacrolimus(FK-50 6) (External) 9.7 8.0 - 10.0 ng/mL LABDE SCAN Tacrolimus Last Dose (External) Not given LABDE SCAN 12/13/2016 8:47 AM CDT Narrative SAMANTHA PFT - 12/22/2016 1:29 PM CDT Verified by Myrna Monreal on 12/22/2016. Verified by Myrna Monreal on 12/22/2016. 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, 07/10/16 rectal swab 06/21/2016 06/21/2016 documented as of this encounter Care Teams President [place] Relationship Specialty Start Date End Date Rubén Boyle MD PCP - General Family Practice 03/08/16 Pamela Blanco DIRECTOR OF BUSINESS APPLICATIONS [facility] [address] [place] [address] Referring Physician 07/13/16 Pedro Segura MD [facility] [address] [place] [address] Nephrology 10/03/16 Freddy Craft MD 516 [facility] 2A [place], [place] [address] Assigned Gastroenterology Provider 02/08/20 Abdifatah Van MD 717 [facility] [address] [place], [place] [address] Assigned Nephrology Provider 07/13/20 11/07/23 Nicole Carranza NP 420 [facility] 508 [place], [place] [address] Assigned Heart and Vascular Provider 01/09/22 Andressa Ruiz PA-C 420 [facility] 803 [place] [address] Physician Manager Critical Care Unit Endocrinology, Diabetes, and Metabolism 03/01/22 Ashlyn Storm, RN [facility] 711 [place] [address] Registered Nurse 03/03/22 09/15/22 Rubén Gunter [facility] [address] [place] [address] Assigned MTM Pharmacist 02/27/22 Andressa Ruiz PA-C 420 [facility] 803 [place] [address] Assigned Endocrinology Provider 03/13/22 09/07/23 Suzan Harry MD 420 [place] [address] Nephrology 06/30/23 Yasmeen Powers MD 500 [place], [place] [address] Nephrology 10/24/23 Yasmeen Powers MD 500 [place], [place] [address] Assigned Nephrology Provider 11/08/23 documented as of this encounter
--- OUTSIDE RECORDS SUMMARY | 2023-12-15 10:12 | XMS_ITS | Encounter Summary ---
Author Organization [facility] Address [address] [place] [address] Care Team Providers Care Sole Cutter Name Role Phone Rubén Boyle MD Primary Care Provider [phone] Pamela Blanco REGRINDER Unavailable Pedro Segura MD Unavailable [phone] Freddy Craft MD Unavailable Abdifatah Van MD Unavailable Nicole Carranza REGRINDER Unavailable [phone] Andressa Ruiz-C Unavailable Ashlyn Storm RN Unavailable Rubén Gunter [facility] Unavailable Andressa Ruiz-C Unavailable [phone] Suzan Harry MD Unavailable [phone] Yasmeen Powers MD Unavailable Yasmeen Powers MD Unavailable [phone] Encounter Details Date Type Department Care Team (Late st Contact Info) Description 01/20/2017 External Order Results [facility] 909 [place] [address] Social History Tobacco Use Types [...] Associated Diagnosis Comments EXTERNAL LAB RESULTS Routine 01/20/2017 8:56 AM CDT documented in this encounter Results * (ABNORMAL) TXP External Lab Result (01/20/2017 8:56 AM CDT) Potassium (External) 5.7(H) 3.5 - 5.3 mmol/L LABDE SCAN 01/20/2017 8:56 AM CDT Narrative SAMANTHA PFT - 01/20/2017 11:12 AM CDT Verified by Cruzito Marlow on 01/20/2017. 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, 07/10/16 rectal swab 06/21/2016 06/21/2016 documented as of this encounter Care Teams Sole Cutter Relationship Specialty Start Date End Date Rubén Boyle MD PCP - General Family Practice 03/08/[address] [facility] [address] [place] [address] Referring Physician 07/13/[address] [facility] [address] [place] [address] Nephrology 10/03/16 Freddy Crfat MD 516 [facility] [place] [address] Assigned Gastroenterology Provider 02/08/20 Abdifatah Van MD 717 [facility] [address] [place] [address] Assigned Nephrology Provider 07/13/20 11/07/23 Nicole Carranza NP 420 [facility] 508 [place] [address] Assigned Heart and Vascular Provider 01/09/22 Andressa Ruiz PA-C 420 [facility] 803 [place] [address] Physician Music Assistant Endocrinology, Diabetes, and Metabolism 03/01/22 Ashlyn Storm, RN [facility] 711 [place] [address] Registered Nurse 03/03/22 09/15/22 Rubén Gunter [facility] [address] [place] [address] Assigned MTM Pharmacist 02/27/22 Andressa Ruiz PA-C 420 [facility] 803 [place] [address] Assigned Endocrinology Provider 03/13/22 09/07/23 Suzan Harry MD 420 [place] [address] Nephrology 06/30/23 Yasmeen Powers MD 500 [place] [address] Nephrology 10/24/23 Yasmeen Powers MD 500 [place] [address] Assigned Nephrology Provider 11/08/23 documented as of this encounter
--- OUTSIDE RECORDS SUMMARY | 2023-12-15 10:12 | XMS_ITS | Encounter Summary ---
Author Organization [facility] Address [address] [place] [address] Care Team Providers Care Traveling Inventory Associate Name Role Phone Rubén Boyle MD Primary Care Provider Pamela Blanco CHILD NUTRITION MANAGER Unavailable Pedro Segura MD Unavailable Freddy Craft MD Unavailable [phone] Abdifatah Van MD Unavailable Nicole Carranza CHILD NUTRITION MANAGER Unavailable Andressa Ruiz-C Unavailable Ashlyn Storm RN Unavailable [phone] Rubén Gunter [facility] Unavailable Andressa Ruiz-C Unavailable Suzan Harry MD Unavailable [phone] Yasmeen Powers MD Unavailable Yasmeen Powers MD Unavailable [phone] Encounter Details Date Type Department Care Team (Late st Contact Info) Description 11/17/2016 External Order Results [facility] 909 [place] [address] Social History Tobacco Use Types [...] Associated Diagnosis Comments EXTERNAL LAB RESULTS Routine 11/17/2016 11:00 AM CDT documented in this encounter Results * (ABNORMAL) TXP External Lab Result (11/17/2016 11:00 AM CDT) Hemoglobin (External) 10.2(L) 13.5 - 17.5 g/dL LABDE SCAN MCV (External) 85 80 - 100 fL LABDE SCAN 11/17/2016 11:0 0 AM CDT Narrative SAMANTHA PFT - 11/17/2016 3:11 PM CDT Verified by Cruzito Marlow on 11/17/2016. 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, 07/10/16 rectal swab 06/21/2016 06/21/2016 documented as of this encounter Care Teams Traveling Inventory Associate Relationship Specialty Start Date End Date Rubén Boyle MD PCP - General Family Practice 03/08/16 Pamela Blanco NP [facility] [address] [place] [address] Referring Physician 07/13/16 Pedro Segura MD [facility] [address] [place] [address] Nephrology 10/03/16 Freddy Craft MD 516 [facility] 2A [place] [address] Assigned Gastroenterology Provider 02/08/20 Abdifatah Van MD 717 [facility] [address] [place] [address] Assigned Nephrology Provider 07/13/20 11/07/23 Nicole Carranza NP 420 [facility] 508 [place], [place] [address] Assigned Heart and Vascular Provider 01/09/22 Andressa Ruiz PA-C 420 [facility] 803 [place], [place] [address] Physician Clothespin Machine Operator Endocrinology, Diabetes, and Metabolism 03/01/22 Ashlyn Storm RN [facility] 711 [place] [address] Registered Nurse 03/03/22 09/15/22 Rubén Gunter [facility] 909 [facility] [address] Assigned MTM Pharmacist 02/27/22 Andressa Ruiz PA-C 420 [facility] 803 [place] [address] Assigned Endocrinology Provider 03/13/22 09/07/23 Suzan Harry MD [address] [place] [address] Nephrology 06/30/23 Yasmeen Powers MD 500 [place] [address] Nephrology 10/24/23 Yasmeen Powers MD 500 [place] [address] Assigned Nephrology Provider 11/08/23 documented as of this encounter
--- OUTSIDE RECORDS SUMMARY | 2023-12-15 10:12 | XMS_ITS | Encounter Summary ---
Author Organization [facility] Address [address] [place] [address] Care Team Providers Care Flake Miller Wheat And Oats Name Role Phone Rubén Boyle MD Primary Care Provider Pamela Blanco CLIENT BUSINESS MANAGER Unavailable Pedro Segura MD Unavailable [phone] Freddy Craft MD Unavailable [phone] Abdifatah Van MD Unavailable Nicole Carranza CLIENT BUSINESS MANAGER Unavailable Andressa Ruiz-C Unavailable Ashlyn Storm RN Unavailable [phone] Rubén Gunter [facility] Unavailable Andressa Ruiz-C Unavailable Suzan Harry MD Unavailable [phone] Yasmeen Powers MD Unavailable Yasmeen Powers MD Unavailable [phone] Encounter Details Date Type Department Care Team (Late st Contact Info) Description 11/09/2016 External Order Results [facility] 909 [place] [address] Social History Tobacco Use Types [...] Associated Diagnosis Comments EXTERNAL LAB RESULTS Routine 11/09/2016 10:05 AM CDT documented in this encounter Results * (ABNORMAL) TXP External Lab Result (11/09/2016 10:05 AM CDT) Sodium (External) 140 135 - 145 mmol/L LABDE SCAN Potassium (External) 5.1(H) 3.5 - 5.0 mmol/L LABDE SCAN Chloride (External) 106 98 - 110 mmol/L LABDE SCAN CO2 (External) 24 21 - 31 mmol/L LABDE SCAN Anion Gap (External) 10 5 - 18 LABDE SCAN Glucose (External) 189(H) 65 - 100 mg/dL LABDE SCAN Calcium (External) 9.5 8.5 - 10.5 mg/dL LABDE SCAN Urea Nitrogen (External) 35(H) 8 - 25 mg/dL LABDE SCAN Creatinine (External) 1.78(H) 0.72 - 1.25 mg/dL LABDE SCAN BUN/Creatinine Ratio (External) 20 10 - 20 LABDE SCAN GFR Estimated (if ) (External) 47(L) >60 ml/min/1. 73m2 LABDE SCAN GFR Estimated (External) 39(L) >60 ml/min/1. 73m2 LABDE SCAN Albumin (External) 3.9 3.2 - 4.6 g/dL [...] - 40 IU/L LABDE SCAN Magnesium (External) 2.1 1.6 - 2.6 mg/dL LABDE SCAN Phosphorus (External) 4.4 2.3 - 4.7 mg/dL LABDE SCAN WBC Count (External) 2.6(L) 4.5 - 11.0 thou/cu mm LABDE SCAN RBC Count (External) 3.81(L) 4.30 - 5.90 mil/cu mm LABDE SCAN Hemoglobin (External) 10.7(L) 13.5 - 17.5 g/dL LABDE SCAN Hematocrit (External) 32.4(L) 37.0 - 53.0 % LABDE SCAN MCV (External) 85 80 - 100 fL LABDE SCAN MCH (External) 28.1 26.0 - 34.0 pg LABDE SCAN MCHC (External) 33.0 32.0 - 36.0 g/dL LABDE SCAN RDW (External) 13.5 11.5 - 15.5 % LABDE SCAN Platelet Count (External) 141 140 - 440 thou/cu mm LABDE SCAN MPV (External) 10.1 6.5 - 11.0 fL LABDE SCAN Tacrolimus(FK-50 6) (External) 8.6 8 - 10 ng/mL LABDE SCAN Tacrolimus Last Dose (External) 11/08/2016 at 8:00 PM LABDE SCAN Scan Lab Results (External) View image LABDE SCAN 11/09/2016 10:0 5 AM CDT Narrative SAMANTHA PFT - 11/15/2016 8:30 AM CDT Verified by Cruzito Marlow on 11/09/2016. Verified by Cruzito Marlow on 11/10/2016. Verified by Rhiannon Cain on 11/15/2016. 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, 07/10/16 rectal swab 06/21/2016 06/21/2016 documented as of this encounter Care Teams Flake Miller Wheat And Oats Relationship Specialty Start Date End Date Rubén Boyle MD PCP - General Family Practice 03/08/16 Pamela Blanco, CLIENT BUSINESS MANAGER [facility] [address] [place] [address] Referring Physician 07/13/16 Pedro Segura MD [facility] [address] [place], [place] [address] Nephrology 10/03/16 Freddy Craft MD 516 [facility] 2[facility] [place], [place] [address] Assigned Gastroenterology Provider 02/08/20 Abdifatah Van MD 717 [facility] [address] [place], [place] [address] Assigned Nephrology Provider 07/13/20 11/07/23 Nicole Carranza NP 420 [facility] 508 [place], [place] [address] Assigned Heart and Vascular Provider 01/09/22 Andressa Ruiz PA-C 420 [facility] 803 [place], [place] [address] Physician Manager Database Administration Endocrinology, Diabetes, and Metabolism 03/01/22 Ashlyn Storm, RN [facility] 711 [place], [place] [address] Registered Nurse 03/03/22 09/15/22 Rubén Gunter [facility] 909 [place] [address] Assigned [place] Pharmacist 02/27/22 Andressa Ruiz PA-C 420 [facility] 803 [place], [place] [address] Assigned Endocrinology Provider 03/13/22 09/07/23 Suzan Harry MD 420 [place], [place] [address] Nephrology 06/30/23 Yasmeen Powers MD 500 [place] [address] Nephrology 10/24/23 Yasmeen Powers MD 500 [place] [address] Assigned Nephrology Provider 11/08/23 documented as of this encounter
--- OUTSIDE RECORDS SUMMARY | 2023-12-15 10:12 | XMS_ITS | Encounter Summary ---
Author Organization [facility] Address [address] [place] [address] Care Team Providers Care Code And Test Clerk Name Role Phone Rubén Boyle MD Primary Care Provider Pamela Blanco RIBBON TIER Unavailable Pedro Segura MD Unavailable [phone] Freddy Craft MD Unavailable [phone] Abdifatah Van MD Unavailable Nicole Carranza RIBBON TIER Unavailable Andressa Ruiz-C Unavailable Ashlyn Storm RN Unavailable Rubén Gunter [facility] Unavailable Andressa Ruiz-C Unavailable [phone] Suzan Harry MD Unavailable [phone] Yasmeen Powers MD Unavailable [phone] Yasmeen Powers MD Unavailable [phone] Encounter Details Date Type Department Care Team (Late st Contact Info) Description 01/10/2017 External Order Results [facility] 9[address] [place] [address] Social History Tobacco Use Types [...] Associated Diagnosis Comments EXTERNAL LAB RESULTS Routine 01/08/2017 9:15 AM CDT documented in this encounter Results * (ABNORMAL) TXP External Lab Result (01/08/2017 9:15 AM CDT) Sodium (External) 139 135 - [...] - 25 mg/dL LABDE SCAN Creatinine (External) 2.19(H) 0.72 - 1.25 mg/dL LABDE SCAN BUN/Creatinine Ratio (External) 18 10 - 20 LABDE SCAN GFR Estimated (if ) (External) 37(L) >60 ml/min/1.73m2 LABDE SCAN GFR Estimated (External) 30(L) >60 ml/min/1.73m2 LABDE SCAN Albumin (External) 3.7 3.2 - 4.6 g/dL LABDE SCAN Protein Total (External) 6.1 6.0 - 8.0 g/dL LABDE SCAN Bilirubin Total (External) 0.8 0.2 - 1.2 mg/dL LABDE SCAN Bilirubin Direct (External) 0.3 0.1 - 0.5 mg/dL LABDE SCAN Alk Phosphatase (External) 70 50 - 136 IU/L LABDE SCAN ALT (External) 10 8 - 45 IU/L LABDE SCAN AST (External) 13 2 - 40 Viktoria/L LABDE SCAN Magnesium (External) 1.7 1.6 - 2.6 mg/dL LABDE SCAN Phosphorus (External) 5.5(H) 2.3 - 4.7 mg/dL LABDE SCAN WBC Count (External) 2.2(L) 4.5 - 11.0 thou/cu mm LABDE SCAN RBC Count (External) 3.44(L) 4.30 - 5.90 mm LABDE SCAN Hemoglobin (External) 9.8(L) 13.5 - 17.5 g/dL LABDE SCAN Hematocrit (External) 29.4(L) 37.0 - 53.0 % LABDE SCAN MCV (External) 86 80 - 100 fL LABDE SCAN MCH (External) 28.5 26.0 - 34.0 pg LABDE SCAN MCHC (External) 33.3 32.0 - 36.0 % LABDE SCAN RDW (External) 14.9 11.5 - 15.5 % LABDE SCAN Platelet Count (External) 124(L) 140 - 440 thou/cu mm LABDE SCAN MPV (External) 9.9 6.5 - 11.0 fL LABDE SCAN Tacrolimus(FK- 506) (External) 7.6 5 - 8 ng/mL LABDE SCAN Tacrolimus Last Dose (External) Not given LABDE SCAN EBV DNA Quant (External) None detected None detected LABDE SCAN CMV DNA Quant (External) Undetected Undetected IU/mL LABDE SCAN Log of CMV Qt (External) Undetected log IU/ml LABDE SCAN 01/08/2017 9:15 AM CDT Narrative SAMANTHA MARTINEZT - 01/11/2017 3:54 PM CDT Verified by Cruzito Marlow on 01/10/2017. Verified by Cruzito Marlow on 01/11/2017. Verified by Cruzito Marlow on 01/11/2017. Verified by Cruzito Marlow on 01/11/2017. 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, 07/10/16 rectal swab 06/21/2016 06/21/2016 documented as of this encounter Care Teams Code And Test Clerk Relationship Specialty Start Date End Date Rubén Boyle MD PCP - General Family Practice 03/08/16 Pamela Blanco RIBBON TIER [facility] [address] [place] [address] Referring Physician 07/13/16 Pedro Segura MD [facility] [address] [place] [address] Nephrology 10/03/16 Freddy Craft MD 516 [facility] [place], [place] [address] Assigned Gastroenterology Provider 02/08/20 Abdifatah Van MD 717 [facility] [address] [place], [place] [address] Assigned Nephrology Provider 07/13/20 11/07/23 Nicole Carranza NP 420 [facility] 508 [place], [place] [address] Assigned Heart and Vascular Provider 01/09/22 Andressa Ruiz PA-C 420 [facility] 803 [place], [place] [address] Physician Clinical Trial Coordinator Endocrinology, Diabetes, and Metabolism 03/01/22 Ashlyn Storm RN [facility] 711 [place] [address] Registered Nurse 03/03/22 09/15/22 Rubén Gunter [facility] [address] [place] [address] Assigned MTM Pharmacist 02/27/22 Andressa Ruiz PA-C 420 [facility] 803 [place] [address] Assigned Endocrinology Provider 03/13/22 09/07/23 Suzan Harry MD 420 [place] [address] Nephrology 06/30/23 Yasmeen Powers MD 500 [place] [address] Nephrology 10/24/23 Yasmeen Powers MD 500 [place] [address] Assigned Nephrology Provider 11/08/23 documented as of this encounter
--- OUTSIDE RECORDS SUMMARY | 2023-12-15 10:12 | XMS_ITS | Encounter Summary ---
Author Organization [place] Address [address] [place] [address] Care Team Providers Care Oracle R12 Developer Name Role Phone Rubén Boyle MD Primary Care Provider Pamela Blanco CASE PACKER AND SEALER Unavailable [phone] Pedro Segura MD Unavailable Freddy Craft MD Unavailable Abdifatah Van MD Unavailable Nicole Carranza CASE PACKER AND SEALER Unavailable Andressa Ruiz-C Unavailable [phone] Ashlyn Storm RN Unavailable Rubén Gunter [facility] Unavailable Andressa Ruiz-C Unavailable Suzan Harry MD Unavailable [phone] Yasmeen Powers MD Unavailable [phone] Yasmeen Powers MD Unavailable [phone] Encounter Details Date Type Department Care Team (Late st Contact Info) Description 01/10/2017 External Order Results [facility] [address] [place] [address] Social History Tobacco Use Types [...] Associated Diagnosis Comments EXTERNAL LAB RESULTS Routine 01/03/2017 9:21 AM CDT documented in this encounter Results * (ABNORMAL) TXP External Lab Result (01/03/2017 9:21 AM CDT) Sodium (External) 139 135 - 145 mmol/L LABDE SCAN Potassium (External) 5.2(H) 3.5 - 5.0 mmol/L LABDE SCAN Chloride (External) 108 98 - 110 mmol/L LABDE SCAN CO2 (External) 24 21 - 31 mmol/L LABDE SCAN Anion Gap (External) 7 5 - 18 LABDE SCAN Glucose (External) 125(H) 65 - 100 mg/dL LABDE SCAN Calcium (External) 8.9 8.5 - 10.5 mg/dL LABDE SCAN Urea Nitrogen (External) 35(H) 8 - 25 mg/dL LABDE SCAN Creatinine (External) 1.99(H) 0.72 - 1.25 mg/dL LABDE SCAN BUN/Creatinine Ratio (External) 18 10 - 20 LABDE SCAN GFR Estimated (if ) (External) 41(L) >60 mL/min/1.7 3/m2 LABDE SCAN GFR Estimated (External) 34(L) >60 mL/min/1.7 3/m2 LABDE SCAN Albumin (External) 3.7 3.2 - 4.6 g/dL LABDE SCAN Protein Total (External) 6.2 6.0 - 8.0 g/dL LABDE SCAN Bilirubin Total (External) 0.6 0.2 - 1.2 mg/dL LABDE SCAN Bilirubin Direct (External) 0.2 0.1 - 0.5 mg/dL LABDE SCAN Alk Phosphatase (External) 76 50 - 136 IU/L LABDE SCAN ALT (External) 10 8 - 45 IU/L LABDE SCAN AST (External) 12 2 - 40 IU/L LABDE SCAN Magnesium (External) 1.7 1.6 - 2.6 mg/dL LABDE SCAN Phosphorus (External) 4.2 2.3 - 4.7 LABDE SCAN WBC Count (External) 2.0(L) 4.5 - 11.0 thou/cu mm LABDE SCAN RBC Count (External) 3.50(L) 4.30 - 5.90 mil/cu mm LABDE SCAN Hemoglobin (External) 9.8(L) 13.5 - 17.5 g/dL LABDE SCAN Hematocrit (External) 29.9(L) 37.0 - 53.0 % LABDE SCAN MCV (External) 85 80 - 100 fL LABDE SCAN MCH (External) 28.0 26.0 - 34.0 pg LABDE SCAN MCHC (External) 32.8 32.0 - 36.0 g/dL LABDE SCAN RDW (External) 14.8 11.5 - 15.5 % LABDE SCAN Platelet Count (External) 127(L) 140 - 440 thou/cu mm LABDE SCAN MPV (External) 9.4 6.5 - 11.0 FL LABDE SCAN Tacrolimus(FK-50 6) (External) 8.2 ng/mL LABDE SCAN 01/03/2017 9:21 AM CDT Narrative SAMANTHA PFT - 01/10/2017 11:16 AM CDT Verified by Yamil Santo on 01/10/2017. 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, 07/10/16 rectal swab 06/21/2016 06/21/2016 documented as of this encounter Care Teams Oracle R12 Developer Relationship Specialty Start Date End Date Rubén Boyle MD PCP - General Family Practice 03/08/16 Pamela Blanco CASE PACKER AND SEALER [facility] [address] [place] [address] Referring Physician 07/13/16 Pedro Segura MD [facility] [address] [place] [address] Nephrology 10/03/16 Freddy Craft MD 516 [facility] 2[facility] [place], [place] [address] Assigned Gastroenterology Provider 02/08/20 Abdifatah Van MD 717 [facility] [address] [place], [place] [id number] Assigned Nephrology Provider 07/13/20 11/07/23 Nicole Carranza, GERMANIA 420 [facility] [address] [place], [place] 6725[address] Assigned Heart and Vascular Provider 01/09/22 Andressa Ruiz PA-C 420 [facility] 803 [place], [place] [id number] Physician Blower Installer Endocrinology, Diabetes, and Metabolism 03/01/22 Ashlyn Storm, RN [facility] 711 [place], [place] [address]854 Registered Nurse 03/03/22 09/15/22 Rubén Gunter RPH 909 [facility] [address] [place], [place] [address]175 Assigned MTM Pharmacist 02/27/22 Andressa Ruiz PA-C 420 [facility] [place] [address] Assigned Endocrinology Provider 03/13/22 09/07/23 Suzan Harry MD 420 [place] [address] Nephrology 06/30/23 Yasmeen Powers MD 500 [place] [address] Nephrology 10/24/23 Yasmeen Powers MD [address] [place] [address] Assigned Nephrology Provider 11/08/23 documented as of this encounter
--- OUTSIDE RECORDS SUMMARY | 2023-12-15 10:12 | XMS_ITS | Encounter Summary ---
Author Organization [place] Address [address] [place] [address] Care Team Providers Care Shingle Packer Name Role Phone Rubén Boyle MD Primary Care Provider Pamela Blnaco CASH CROP FARMER Unavailable Pedro Segura MD Unavailable Freddy Craft MD Unavailable Abdifatah Van MD Unavailable Nicole Carranza CASH CROP FARMER Unavailable Andressa Ruiz-C Unavailable [phone] Ashlyn Storm RN Unavailable Rubén Gunter [facility] Unavailable Andressa Ruiz-C Unavailable Suzan Harry MD Unavailable [phone] Yasmeen Powers MD Unavailable Yasmeen Powers MD Unavailable [phone] Encounter Details Date Type Department Care Team (Late st Contact Info) Description 01/24/2017 External Order Results [facility] [address] [place] [address] Social History Tobacco Use Types [...] Associated Diagnosis Comments EXTERNAL LAB RESULTS Routine 01/24/2017 9:08 AM CDT documented in this encounter Results * (ABNORMAL) TXP External Lab Result (01/24/2017 9:08 AM CDT) Sodium (External) 140 135 - 145 mmol/L LABDE SCAN Potassium (External) 5.4(H) 3.5 - 5.0 mmol/L LABDE SCAN Chloride (External) 110 98 - 110 mmol/L LABDE SCAN CO2 (External) 23 21 - 31 mmol/L LABDE SCAN Anion Gap (External) 7 5 - 18 LABDE SCAN Glucose (External) 132(H) 65 - 100 mg/dL LABDE SCAN Calcium (External) 9.2 8.5 - 10.5 mg/dL LABDE SCAN Urea Nitrogen (External) 49(H) 8 - 25 mg/dL LABDE SCAN Creatinine (External) 2.17(H) 0.72 - 1.25 mg/dL LABDE SCAN BUN/Creatinine Ratio (External) 23(H) 10 - 20 LABDE SCAN GFR Estimated (if ) (External) 37(L) >60 ml/min/1.7 3m2 LABDE SCAN GFR Estimated (External) 31(L) >60 ml/min/1.7 3m2 LABDE SCAN 01/24/2017 9:08 AM CDT Narrative SAMANTHA PFT - 01/24/2017 3:59 PM CDT Verified by Myrna Monreal on 01/24/2017. 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, 07/10/16 rectal swab 06/21/2016 06/21/2016 documented as of this encounter Care Teams Shingle Packer Relationship Specialty Start Date End Date Rubén Boyle MD PCP - General Family Practice 03/08/16 Pamela Blanco, CASH CROP FARMER [facility] [address] [place] [address] Referring Physician 07/13/16 Pedro Segura MD [facility] [address] [place] [address] Nephrology 10/03/16 Fredyd Craft MD 516 [facility] [address] [address], [place] 162935 Assigned Gastroenterology Provider 02/08/20 Abdifatah Van MD 717 [facility] [address], [place] 572024 Assigned Nephrology Provider 07/13/20 11/07/23 Nicole Carranza, [place] 420 [facility] [address], [place] 958875 Assigned Heart and Vascular Provider 01/09/22 Andressa Ruiz PA-C 420 [facility] [address], [place] 8[address]85 Physician Appraiser Real Estate Endocrinology, Diabetes, and Metabolism 03/01/22 Ashlyn Storm, RN [facility] 711 [place] [address] Registered Nurse 03/03/22 09/15/22 Rubén Gunter [facility] [address] [place] [address] Assigned MTM Pharmacist 02/27/22 Andressa Ruiz PA-C 420 [facility] [address] [place] [address] Assigned Endocrinology Provider 03/13/22 09/07/23 Suzan Harry MD 420 [place] [address] Nephrology 06/30/23 Yasmeen Powers MD 500 [place] [address] Nephrology 10/24/23 Yasmeen Powers MD 500 [place] [address] Assigned Nephrology Provider 11/08/23 documented as of this encounter
--- OUTSIDE RECORDS SUMMARY | 2023-12-15 10:12 | XMS_ITS | Encounter Summary ---
Author Organization [place] Address [address] [place] [address] Care Team Providers Care Dermatology Physician Assistant Name Role Phone Rubén Boyle MD Primary Care Provider Pamela Blanco FINANCIAL AID ADMINISTRATOR Unavailable Pedro Segura MD Unavailable [phone] Freddy Craft MD Unavailable Abdifatah Van MD Unavailable Nicole Carranza FINANCIAL AID ADMINISTRATOR Unavailable Andressa Ruiz-C Unavailable Ashlyn Storm RN Unavailable Rubén Gunter [facility] Unavailable Andressa Ruiz-C Unavailable [phone] Suzan Harry MD Unavailable [phone] Yasmeen Powers MD Unavailable Yasmeen Powers MD Unavailable [phone] Encounter Details Date Type Department Care Team (Late st Contact Info) Description 12/30/2016 External Order Results [facility] [address] [place] [address] Social History Tobacco Use Types [...] Associated Diagnosis Comments EXTERNAL LAB RESULTS Routine 12/27/2016 9:23 AM CDT documented in this encounter Results * (ABNORMAL) TXP External Lab Result (12/27/2016 9:23 AM CDT) Tacrolimus(FK-50 6) (External) 8.7 8 - 10 ng/mL LABDE SCAN Tacrolimus Last Dose (External) 12/26/2016 at 8:00 PM LABDE SCAN WBC Count (External) 1.8(LL) 4.5 - 11.0 thou/cu mm LABDE SCAN RBC Count (External) 3.52(L) 4.30 - 5.90 mil/cu mm LABDE SCAN Hemoglobin (External) 10.0(L) 13.5 - 17.5 g/dL LABDE SCAN Hematocrit (External) 30.1(L) 37.0 - 53.0 % LABDE SCAN MCV (External) 86 80 - 100 fL LABDE SCAN MCH (External) 28.4 26.0 - 34.0 pg LABDE SCAN MCHC (External) 33.2 32.0 - 36.0 g/dL LABDE SCAN RDW (External) 14.6 11.5 - 15.5 % LABDE SCAN Platelet Count (External) 112(L) 140 - 440 thou/cu mm LABDE SCAN MPV (External) 8.7 6.5 - 11.0 fL LABDE SCAN Sodium (External) 140 135 - 145 mmol/L LABDE SCAN Potassium (External) 5.1(H) 3.5 - 5.0 mmol/L LABDE SCAN Chloride (External) 106 98 - 110 mmol/L LABDE SCAN CO2 (External) 25 21 - 31 mmol/L LABDE SCAN Anion Gap (External) 9 5 - 18 LABDE SCAN Glucose (External) 120(H) 65 - 100 mg/dL LABDE SCAN Calcium (External) 9.4 8.5 - 10.5 mg/dL LABDE SCAN Urea Nitrogen (External) 36(H) 8 - 25 mg/dL LABDE SCAN Creatinine (External) 1.98(H) 0.72 - 1.25 mg/dL LABDE SCAN BUN/Creatinine Ratio (External) 18 10 - 20 LABDE SCAN GFR Estimated (if ) (External) 41(L) >60 ml/min/1. 73 m(2) LABDE SCAN GFR Estimated (External) 34(L) >60 ml/min/1. 73 m(2) LABDE SCAN Albumin (External) 3.9 3.2 - 4.6 g/dL LABDE SCAN Protein Total (External) 6.4 6.0 - 8.0 g/dL LABDE SCAN Bilirubin Total (External) 0.8 0.2 - 1.2 mg/dL LABDE SCAN Bilirubin Direct (External) 0.3 0.1 - 0.5 mg/dL LABDE SCAN Alk Phosphatase (External) 79 50 - 138 IU/L LABDE SCAN ALT (External) 6(L) 8 - 45 IU/L LABDE SCAN AST (External) 12 2 - 40 IU/L LABDE SCAN Magnesium (External) 1.7 1.6 - 2.6 mg/dL LABDE SCAN Phosphorus (External) 4.1 2.3 - 4.7 mg/dL LABDE SCAN 12/27/2016 9:23 AM CDT Narrative SAMANTHA MARTINEZT - 01/01/2017 2:23 PM CDT Verified by Cruzito Marlow on 12/30/2016. Verified by Cruzito Marlow on 01/01/2017. Verified by Rhiannon Cain on 01/01/2017. 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, 07/10/16 rectal swab 06/21/2016 06/21/2016 documented as of this encounter Care Teams Dermatology Physician Assistant Relationship Specialty Start Date End Date Rubén Boyle MD PCP - General Family Practice 03/08/16 Pamela Blanco FINANCIAL AID ADMINISTRATOR [facility] [address] [place] [address] Referring Physician 07/13/16 Pedro Segura MD [facility] [address] [place], [place] 0[address] Nephrology 10/03/16 Freddy Craft MD 516 [facility] 2[facility] [place], [place] [address] Assigned Gastroenterology Provider 02/08/20 Abdifatah Van MD 717 [facility] [address] [place] [address] Assigned Nephrology Provider 07/13/20 11/07/23 Nicole Carranza NP 420 [facility] 508 [place], [place] 7379[address] Assigned Heart and Vascular Provider 01/09/22 Andressa Ruiz PA-C 420 [facility] 803 [place], [place] [address] Physician Lead Project Engineer Endocrinology, Diabetes, and Metabolism 03/01/22 Ashlyn Storm, RN [facility] 711 [facility] [place], [place] [address] Registered Nurse 03/03/22 09/15/22 Rubén Gunter [facility] [address] [place] [address] Assigned MTM Pharmacist 02/27/22 Andressa Ruiz PA-C 420 [facility] 803 [place] [address] Assigned Endocrinology Provider 03/13/22 09/07/23 Suzan Harry MD 420 [place] [address] Nephrology 06/30/23 Yasmeen Powers MD 500 [place] [address] Nephrology 10/24/23 Yasmeen Powers MD [address] [place] [address] Assigned Nephrology Provider 11/08/23 documented as of this encounter
--- OUTSIDE RECORDS SUMMARY | 2023-12-15 10:13 | XMS_ITS | Encounter Summary ---
Author Organization [place] Address [address] [place] [address] Care Team Providers Care Order Filler Name Role Phone Rubén Boyle MD Primary Care Provider Pamela Blanco MANAGER SERVICING Unavailable Pedro Segura MD Unavailable Freddy Craft MD Unavailable [phone] Abdifatah Van MD Unavailable Nicole Carranza MANAGER SERVICING Unavailable [phone] Andressa Ruiz-C Unavailable [phone] Ashlyn Storm RN Unavailable [phone] Rubén Gunter [facility] Unavailable Andressa Ruiz-C Unavailable Suzan Harry MD Unavailable [phone] Yasmeen Powers MD Unavailable Yasmeen Powers MD Unavailable [phone] Encounter Details Date Type Department Care Team (Late st Contact Info) Description 09/22/2016 External Order Results [facility] [address] [place] [address] Social History Tobacco Use Types [...] Associated Diagnosis Comments EXTERNAL LAB RESULTS Routine 09/21/2016 9:45 AM CDT documented in this encounter Results * (ABNORMAL) TXP External Lab Result (09/21/2016 9:45 AM CDT) Sodium (External) 140 135 - 145 mmol/L LABDE SCAN Potassium (External) 4.7 3.5 - 5.0 mmol/L LABDE SCAN Chloride (External) 106 98 - 110 mmol/L LABDE SCAN CO2 (External) 27 21 - 31 mmol/L LABDE SCAN Anion Gap (External) 7 5 - 18 LABDE SCAN Glucose (External) 135(H) 65 - 100 mg/dL LABDE SCAN Calcium (External) 8.8 8.5 - 10.5 mg/dL LABDE SCAN Urea Nitrogen (External) 17 8 - 25 mg/dl LABDE SCAN Creatinine (External) 1.18 0.72 - 1.25 mg/dL LABDE SCAN BUN/Creatinine Ratio (External) 14 10 - 20 LABDE SCAN GFR Estimated (if ) (External) >60 >60 ml/min/1.7 3m2 LABDE SCAN GFR Estimated (External) >60 >60 ml/min/1.7 3m2 LABDE SCAN Albumin (External) 3.2 3.2 - 4.6 g/dL LABDE SCAN Protein Total (External) 5.4(L) 6.0 - 8.0 g/dL LABDE SCAN Bilirubin Total (External) 0.7 0.2 - 1.2 mg/dL LABDE SCAN Bilirubin Direct (External) 0.3 0.1 - 0.5 mg/dL LABDE SCAN Alk Phosphatase (External) 55 50 - 136 IU/L LABDE SCAN ALT (External) 8 8 - 45 IU/L LABDE SCAN AST (External) 14 2 - 40 IU/L LABDE SCAN Magnesium (External) 1.4(L) 1.6 - 2.6 mg/dL LABDE SCAN Phosphorus (External) 4.3 2.3 - 4.7 mg/dL LABDE SCAN WBC Count (External) 2.1(L) 4.5 - 11.0 thou/cu mm LABDE SCAN RBC Count (External) 3.19(L) 4.30 - 5.90 mil/cu mm LABDE SCAN Hemoglobin (External) 9.3(L) 13.5 - 17.5 g/dL LABDE SCAN Hematocrit (External) 28.5(L) 37.0 - 53.0 % LABDE SCAN MCV (External) 89 80 - 100 fL LABDE SCAN MCH (External) 29.2 26.0 - 34.0 pg LABDE SCAN MCHC (External) 32.8 32.0 - 36.0 g/dL LABDE SCAN RDW (External) 14.0 11.5 - 15.5 % LABDE SCAN Platelet Count (External) 159 140 - 440 thou/cu mm LABDE SCAN MPV (External) 8.4 6.5 - 11.0 fL LABDE SCAN 09/21/2016 9:45 AM CDT Narrative SAMANTHA PFT - 09/22/2016 3:09 PM CDT Verified by Myrna Monreal on 09/22/2016. 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, 07/10/16 rectal swab 06/21/2016 06/21/2016 documented as of this encounter Care Teams Order Filler Relationship Specialty Start Date End Date Rubén Boyle MD PCP - General Family Practice 03/08/16 Pamela Blanco NP [address] [address] Referring Physician 07/13/16 Pedro Segura MD [facility] [address] [place] [address] Nephrology 10/03/16 Freddy Craft MD 516 [facility] 2[address] [place] [address] Assigned Gastroenterology Provider 02/08/20 Abdifatah Van MD 717 [facility] [address] [place] [address] Assigned Nephrology Provider 07/13/20 11/07/23 Nicole Carranza NP 420 [facility] 508 [place], [place] [address] Assigned Heart and Vascular Provider 01/09/22 Andressa Ruiz PA-C 420 [facility] 803 [place], [place] [address] Physician Weight Caller Endocrinology, Diabetes, and Metabolism 03/01/22 Ashlyn Storm RN [facility] 711 [place] [address] Registered Nurse 03/03/22 09/15/22 Rubén Gunter [facility] [address] [place] [address] 038205 Assigned MTM Pharmacist 02/27/22 Andressa Ruiz PA-C 420 [facility] [address] [place], [place] [address] Assigned Endocrinology Provider 03/13/22 09/07/23 Suzan Harry MD [address] [place] [address] Nephrology 06/30/23 Yasmeen Powers MD 500 [place], [place] [address] Nephrology 10/24/23 Yasmeen Powers MD 500 [place], [place] 100475 Assigned Nephrology Provider 11/08/23 documented as of this encounter
--- OUTSIDE RECORDS SUMMARY | 2023-12-15 10:13 | XMS_ITS | Encounter Summary ---
Author Organization [place] Address [address] [place] [address] Care Team Providers Care Survey Research Associate Name Role Phone Rubén Boyle MD Primary Care Provider Pamela Blanco PROFESSOR OF PSYCHIATRY Unavailable ePdro Segura MD Unavailable Freddy Craft MD Unavailable Abdifatah Van MD Unavailable Nicole Carranza PROFESSOR OF PSYCHIATRY Unavailable Andressa Ruiz-C Unavailable Ashlyn Storm RN Unavailable [phone] Rubén Gunter [facility] Unavailable Andressa Ruiz-C Unavailable Suzan Harry MD Unavailable [phone] Yasmeen Powers MD Unavailable [phone] Yasmeen Powers MD Unavailable [phone] Encounter Details Date Type Department Care Team (Late st Contact Info) Description 10/14/2016 External Order Results [facility] Transplant Clinic [address] [place] [address] Social History Tobacco Use Types [...] Associated Diagnosis Comments EXTERNAL LAB RESULTS Routine 10/14/2016 9:03 AM CDT documented in this encounter Results * (ABNORMAL) TXP External Lab Result (10/14/2016 9:03 AM CDT) WBC Count (External) 1.8(L) 4.5 - 11.0 thou/cu mm LABDE SCAN RBC Count (External) 3.61(L) 4.30 - 5.90 mil/cu mm LABDE SCAN Hemoglobin (External) 10.2(L) 13.5 - 17.5 g/dL LABDE SCAN Hematocrit (External) 31.1(L) 37.0 - 53.0 % LABDE SCAN MCV (External) 86 80 - 100 fL LABDE SCAN MCH (External) 28.3 26.0 - 34.0 pg LABDE SCAN MCHC (External) 32.8 32.0 - 36.0 g/dL LABDE SCAN RDW (External) 13.0 11.5 - 15.5 % LABDE SCAN Platelet Count (External) 126(L) 140 - 440 thou/cu mm LABDE SCAN MPV (External) 8.7 6.5 - 11.0 fL LABDE SCAN Sodium (External) 139 135 - 145 mmol/L LABDE SCAN Potassium (External) 5.1(H) 3.5 - 5.0 mmol/L LABDE SCAN Chloride (External) 107 98 - 110 mmol/L LABDE SCAN CO2 (External) 25 21 - 31 mmol/L LABDE SCAN Anion Gap (External) 7 5 - 18 LABDE SCAN Glucose (External) 171(H) 65 - 100 mg/dL LABDE SCAN Calcium (External) 9.3 8.5 - 10.5 mg/dL LABDE SCAN Urea Nitrogen (External) 23 8 - 25 mg/dL LABDE SCAN Creatinine (External) 1.48(H) 0.72 - 1.25 mg/dL LABDE SCAN BUN/Creatinine Ratio (External) 16 10 - 20 LABDE SCAN GFR Estimated (if ) (External) 58(L) >60 ml/min/1. 73m2 LABDE SCAN GFR Estimated (External) 48(L) >60 ml/min/1. 73m2 LABDE SCAN Albumin (External) 3.5(L) 32 - 46 g/dL LABDE SCAN Protein Total (External) 5.8(L) 6.0 - 8.0 g/dL LABDE SCAN Bilirubin Total (External) 0.7 0.2 - 1.2 mg/dL LABDE SCAN Bilirubin Direct (External) 0.3 0.1 - 0.5 mg/dL LABDE SCAN Alk Phosphatase (External) 63 50 - 136 IU/L LABDE SCAN ALT (External) 8 8 - 45 IU/L LABDE SCAN AST (External) 11 2 - 40 IU/L LABDE SCAN Magnesium (External) 1.6 1.6 - 2.6 mg/dL LABDE SCAN Phosphorus (External) 4.1 2.3 - 4.7 mg/dl LABDE SCAN INR (External) 1.6(H) <1.3 LABDE SCAN PT - Prothrombine Time (External) 18.7(H) 11.7 - 14.1 sec LABDE SCAN Tacrolimus(FK-506 ) (External) 7.9 ng/mL LABDE SCAN Tacrolimus Last Dose (External) 10/13/2016 at 8:00 PM LABDE SCAN 10/14/2016 9:03 AM CDT Narrative SAMANTHA PFT - 10/18/2016 7:33 AM CDT Verified by Rhiannon Cain on 10/14/2016. Verified by Rhiannon Cain on 10/14/2016. Verified by Cruzito Marlow on 10/18/2016. 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, 07/10/16 rectal swab 06/21/2016 06/21/2016 documented as of this encounter Care Teams Survey Research Associate Relationship Specialty Start Date End Date Rubén Boyle MD PCP - General Family Practice 03/08/16 Pamela Blanco, GER[place] [facility] [address] [place] [address] Referring Physician 07/13/16 Pedro Segura MD [facility] [address] [place] [address] Nephrology 10/03/16 Freddy Craft MD 516 [facility] 2[address] [place], [place] [address]88[address] Assigned Gastroenterology Provider 02/08/20 Abdifatah Van MD [address] [place] [address] 353 [place], [place] [id number] Assigned Nephrology Provider 07/13/20 11/07/23 Nicole Carranza NP 420 [facility] 508 [place], [place] [address] Assigned Heart and Vascular Provider 01/09/22 Andressa Ruiz PA-C 420 [facility] 803 [place], [place] [id number] Physician Cable Placer Endocrinology, Diabetes, and Metabolism 03/01/22 Ashlyn Storm RN [facility] 711 [place], [place] [id number] Registered Nurse 03/03/22 09/15/22 Rubén Gunter [facility] 909 [place], [place] [address] Assigned MTM Pharmacist 02/27/22 Andressa Ruiz PA-C 420 [facility] 803 [place], [place] [address] Assigned Endocrinology Provider 03/13/22 09/07/23 Suzan Harry MD 420 [place], [place] [address] Nephrology 06/30/23 Yasmeen Powers MD 500 [place] [address] Nephrology 10/24/23 Yasmeen Powers MD 500 [place] [address] Assigned Nephrology Provider 11/08/23 documented as of this encounter
--- OUTSIDE RECORDS SUMMARY | 2023-12-15 10:13 | XMS_ITS | Encounter Summary ---
Author Organization [facility] Address [address] [place] [address] Care Team Providers Care Edging Machine Catcher Name Role Phone Rubén Boyle MD Primary Care Provider [phone] Pamela Blanco BUSINESS INTELLIGENCE MANAGER Unavailable Pedro Segura MD Unavailable Freddy Craft MD Unavailable Abdifatah Van MD Unavailable Nciole Carranza BUSINESS INTELLIGENCE MANAGER Unavailable [phone] Andressa Ruiz-C Unavailable Ashlyn Storm RN Unavailable [phone] Rubén Gunter [facility] Unavailable Andressa Ruiz-C Unavailable Suzan Harry MD Unavailable [phone] Yasmeen Powers MD Unavailable Yasmeen Powers MD Unavailable [phone] Encounter Details Date Type Department Care Team (Late st Contact Info) Description 09/14/2016 External Order Results [facility] [address] [place] [address] Social History Tobacco Use Types [...] Associated Diagnosis Comments EXTERNAL LAB RESULTS Routine 09/13/2016 7:43 AM CDT documented in this encounter Results * (ABNORMAL) TXP External Lab Result (09/13/2016 7:43 AM CDT) Sodium (External) 141 135 - 145 mmol/L LABDE SCAN Potassium (External) 5.0 3.5 - 5.0 mmol/L LABDE SCAN Chloride (External) 108 98 - 110 mmol/L LABDE SCAN CO2 (External) 25 21 - 31 mmol/L LABDE SCAN Anion Gap (External) 8 5 - 18 LABDE SCAN Glucose (External) 134(H) 65 - 100 mg/dL LABDE SCAN Calcium (External) 9.3 8.5 - 10.5 mg/dL LABDE SCAN Urea Nitrogen (External) 19 8 - 25 mg/dL LABDE SCAN Creatinine (External) 1.13 0.72 - 1.25 mg/dL LABDE SCAN BUN/Creatinine Ratio (External) 17 10 - 20 LABDE SCAN GFR Estimated (if ) (External) >60 >60 ml/min/1. 73 m2 LABDE SCAN GFR Estimated (External) >60 >60 ml/min/1. 73 m2 LABDE SCAN Albumin (External) 3.1(L) 3.2 - 4.6 g/dL LABDE SCAN Protein Total (External) 5.4(L) 6.0 - 8.0 g/dL LABDE SCAN Bilirubin Total (External) 0.3 0.2 - 1.2 mg/dL LABDE SCAN Bilirubin Direct (External) 0.2 0.1 - 0.5 mg/dL LABDE SCAN Alk Phosphatase (External) 53 50 - 136 IU/L LABDE SCAN ALT (External) 6(L) 8 - 45 IU/L LABDE SCAN AST (External) 12 2 - 40 IU/L LABDE SCAN Magnesium (External) 1.6 1.6 - 2.6 mg/dL LABDE SCAN Phosphorus (External) 4.3 2.3 - 4.7 mg/dL LABDE SCAN WBC Count (External) 2.5(L) 4.5 - 11.0 thou/cu mm LABDE SCAN RBC Count (External) 3.08(L) 4.30 - 5.90 mil/cu mm LABDE SCAN Hemoglobin (External) 9.0(L) 13.5 - 17.5 g/dL LABDE SCAN Hematocrit (External) 28.0(L) 37.0 - 53.0 % LABDE SCAN MCV (External) 91 80 - 100 fL LABDE SCAN MCH (External) 29.2 26.0 - 34.0 pg LABDE SCAN MCHC (External) 32.1 32.0 - 36.0 g/dL LABDE SCAN RDW (External) 14.7 11.5 - 15.5 % LABDE SCAN Platelet Count (External) 165 140 - 440 thou/cu mm LABDE SCAN MPV (External) 9.4 6.5 - 11.0 fL LABDE SCAN Tacrolimus(FK-50 6) (External) 6.2(L) 10 - 12 ng/mL LABDE SCAN Tacrolimus Last Dose (External) Not given LABDE SCAN 09/13/2016 7:43 AM CDT Narrative SAMANTHA PFT - 09/14/2016 2:26 PM CDT Verified by Myrna Monreal on 09/14/2016. Verified by Myrna Monreal on 09/14/2016. Patient Reported LABORATORY BREEZE PFT LABDE SCAN documented in this encounter Visit Diagnoses Not on filedocumented in this encounter Additional Health Concerns Infection Onset Date Last Indicated Resolved Time 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/16 urine, 07/10/16 rectal swab 06/21/2016 06/21/2016 documented as of this encounter Care Teams Edging Machine Catcher Relationship Specialty Start Date End Date Rubén Boyle MD PCP - General Family Practice 03/08/16 Pamela Blanco BUSINESS INTELLIGENCE MANAGER [facility] [address] [place] [address] Referring Physician 07/13/16 Pedro Segura MD [facility] [address] [place], [place] [address] Nephrology 10/03/16 Freddy Craft MD 516 [facility] [address] [place], [place] [id number] Assigned Gastroenterology Provider 02/08/20 Abdifatah Van MD 717 [facility] [address] [place], [place] [id number] Assigned Nephrology Provider 07/13/20 11/07/23 Nicole Carranza NP 420 [facility] [address] [place], [place] [address] Assigned Heart and Vascular Provider 01/09/22 Andressa Ruiz PA-C 420 [facility] 803 [place], [place] [address] Physician Manager Combination Endocrinology, Diabetes, and Metabolism 03/01/22 Ashlyn Storm, RN [facility] 711 [place] [address] Registered Nurse 03/03/22 09/15/22 Rubén Gunter RPH 909 [place], [place] [id number] Assigned MTM Pharmacist 02/27/22 Andressa Ruiz PA-C 420 [facility] 803 [place] [address] Assigned Endocrinology Provider 03/13/22 09/07/23 Suzan Harry MD 420 [place] [address] Nephrology 06/30/23 Yasmeen Powers MD 500 [place], [place] [id number] Nephrology 10/24/23 Yasmeen Powers MD [address] [place], [place] 9[address]25 Assigned Nephrology Provider 11/08/23 documented as of this encounter
--- OUTSIDE RECORDS SUMMARY | 2023-12-15 10:13 | XMS_ITS | Encounter Summary ---
Author Organization [facility] Address [address] [place] [address] Care Team Providers Care Healthcare Market Consultant Name Role Phone Rubén Boyle MD Primary Care Provider [phone] Pamela Blanco CRITICAL CARE CLINICAL NURSE SPECIALIST Unavailable Pedro Segura MD Unavailable [phone] Freddy Craft MD Unavailable Abdifatah Van MD Unavailable Nicole Carranza CRITICAL CARE CLINICAL NURSE SPECIALIST Unavailable [phone] Andressa Ruiz-C Unavailable [phone] Ashlyn Storm RN Unavailable [phone] Rubén Gunter [facility] Unavailable Andressa Ruiz-C Unavailable [phone] Suzan Harry MD Unavailable [phone] Yasmeen Powers MD Unavailable [phone] Yasmeen Powers MD Unavailable [phone] Encounter Details Date Type Department Care Team (Late st Contact Info) Description 09/06/2016 External Order Results [facility] [address] [place] [address] Social History Tobacco Use Types [...] Associated Diagnosis Comments EXTERNAL LAB RESULTS Routine 09/09/2016 9:30 AM CDT EXTERNAL LAB RESULTS Routine 09/06/2016 9:20 AM CDT documented in this encounter Results * (ABNORMAL) TXP External Lab Result (09/09/2016 9:30 AM CDT) Sodium (External) 141 135 - 145 mmol/L LABDE SCAN Potassium (External) 4.5 3.5 - 5.0 mmol/L LABDE SCAN Chloride (External) 107 98 - 110 mmol/L LABDE SCAN CO2 (External) 23 21 - 31 mmol/L LABDE SCAN Anion Gap (External) 11 5 - 18 LABDE SCAN Glucose (External) 163(H) 65 - 100 mg/dL LABDE SCAN Calcium (External) 8.7 8.5 - 10.5 mg/dL LABDE SCAN Urea Nitrogen (External) 16 8 - 25 mg/dL LABDE SCAN Creatinine (External) 1.10 0.72 - 1.25 mg/dL LABDE SCAN BUN/Creatinine Ratio (External) 15 10 - 20 LABDE SCAN GFR Estimated (if ) (External) >60 >60 ml/min/1. 73m2 LABDE SCAN GFR Estimated (External) >60 >60 ml/min/1. 73m2 LABDE SCAN Albumin (External) 3.2 3.2 - 4.6 g/dL LABDE SCAN Protein Total (External) 5.4(L) 6.0 - 8.0 g/dL LABDE SCAN Bilirubin Total (External) 0.5 0.2 - 1.2 mg/dL LABDE SCAN Bilirubin Direct (External) 0.3 0.1 - 0.5 mg/dL LABDE SCAN Alk Phosphatase (External) 52 50 - 136 IU/L LABDE SCAN ALT (External) 6(L) 8 - 45 IU/L LABDE SCAN AST (External) 15 2 - 40 IU/L LABDE SCAN Magnesium (External) 1.4(L) 1.6 - 2.6 mg/dL LABDE SCAN Phosphorus (External) 3.8 2.3 - 4.7 mg/dl LABDE SCAN WBC Count (External) 2.9(L) 4.5 - 11.0 thou/cu mm LABDE SCAN RBC Count (External) 3.13(L) 4.30 - 5.90 mil/cu mm LABDE SCAN Hemoglobin (External) 9.2(L) 13.5 - 17.5 g/dL LABDE SCAN Hematocrit (External) 28.5(L) 37.0 - 53.0 % LABDE SCAN MCV (External) 91 80 - 100 fL LABDE SCAN MCH (External) 29.4 26.0 - 34.0 pg LABDE SCAN MCHC (External) 32.3 32.0 - 38.0 % LABDE SCAN RDW (External) 15.0 11.5 - 15.5 % LABDE SCAN Platelet Count (External) 174 140 - 440 thou/cu mm LABDE SCAN MPV (External) 9.1 6.5 - 11.0 fL LABDE SCAN Tacrolimus Last Dose (External) 09/08/2016 8:00 PM LABDE SCAN Tacrolimus(FK-50 6) (External) 4.2(L) 10 - 12 ng/mL LABDE SCAN 09/09/2016 9:30 AM CDT Narrative SAMANTHA PFT - 09/14/2016 8:59 AM CDT Verified by Rhiannon Cain on 09/09/2016. Verified by Cruzito Marlow on 09/14/2016. Patient Reported LABORATORY SAMANTHA PFT LABDE SCAN * (ABNORMAL) TXP External Lab Result (09/06/2016 9:20 AM CDT) Sodium (External) 140 135 - [...] 10.5 mg/dL LABDE SCAN Urea Nitrogen (External) 15 8 - 25 mg/dL LABDE SCAN Creatinine (External) 1.09 0.72 - 1.25 mg/dL LABDE SCAN BUN/Creatinine Ratio (External) 14 10 - 20 LABDE SCAN GFR Estimated (if ) (External) >60 >60 ml/min/1.7 3m2 LABDE SCAN GFR Estimated (External) >60 >60 ml/min/1.7 3m2 LABDE SCAN Albumin (External) 3.2 3.2 - 4.6 g/dL LABDE SCAN Protein Total (External) 5.7(L) 6.0 - 8.0 g/dL LABDE SCAN Bilirubin Total (External) 0.4 0.2 - 1.2 mg/dL LABDE SCAN Bilirubin Direct (External) 0.2 0.1 - 0.5 mg/dL LABDE SCAN Alk Phosphatase (External) 56 50 - 136 IU/L LABDE SCAN ALT (External) 8 8 - 45 IU/L LABDE SCAN AST (External) 14 2 - 40 IU/L LABDE SCAN Magnesium (External) 1.5(L) 1.6 - 2.6 mg/dL LABDE SCAN Phosphorus (External) 4.0 2.3 - 4.7 mg/dl LABDE SCAN WBC Count (External) 3.0(L) 4.5 - 11.0 thou/cu mm LABDE SCAN RBC Count (External) 3.11(L) 4.30 - 5.90 mil/cu mm LABDE SCAN Hemoglobin (External) 9.0(L) 13.5 - 17.5 g/dL LABDE SCAN Hematocrit (External) 28.2(L) 37.0 - 53.0 % LABDE SCAN MCV (External) 91 80 - 100 fL LABDE SCAN MCH (External) 28.9 26.0 - 34.0 pg LABDE SCAN MCHC (External) 31.9(L) 32.0 - 36.0 % LABDE SCAN RDW (External) 15.1 11.5 - 15.5 % LABDE SCAN Platelet Count (External) 185 140 - 440 thou/cu mm LABDE SCAN MPV (External) 9.5 6.5 - 11.0 fL LABDE SCAN Tacrolimus(FK-50 6) (External) 5.1(L) 10 - 12 ng/mL LABDE SCAN 09/06/2016 9:20 AM CDT Narrative SAMANTHA PFT - 09/07/2016 2:32 PM CDT Verified by Rhiannon Cain on 09/06/2016. Verified by Myrna Monreal on 09/07/2016. 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, 07/10/16 rectal swab 06/21/2016 06/21/2016 documented as of this encounter Care Teams Healthcare Market Consultant Relationship Specialty Start Date End Date Rubén Boyle MD PCP - General Family Practice 03/08/16 Pamela Blanco CRITICAL CARE CLINICAL NURSE SPECIALIST [facility] [address] [place], [place] [address] Referring Physician 07/13/16 Pedro Segura MD [facility] [address] [place], [place] [address] Nephrology 10/03/16 Freddy Craft MD [address] [place] [id number] Assigned Gastroenterology Provider 02/08/20 Abdifatah Van MD 717 [facility] [address] [place] [address] Assigned Nephrology Provider 07/13/20 11/07/23 Nicole Carranza NP 420 [facility] 508 [place] [address] Assigned Heart and Vascular Provider 01/09/22 Andressa Ruiz PA-C 420 [facility] 803 [place] [address] Physician Machine Shop Worker Endocrinology, Diabetes, and Metabolism 03/01/22 Ashlyn Storm RN [facility] 711 [place] [address] Registered Nurse 03/03/22 09/15/22 Rubén Gunter [facility] [address] [place] [address] Assigned MTM Pharmacist 02/27/22 Andressa Ruiz PA-C 420 [facility] 803 [place] [address] Assigned Endocrinology Provider 03/13/22 09/07/23 Suzan Harry MD 420 [place] [address] Nephrology 06/30/23 Yasmeen Powers MD 500 [place], [place] 40[address] Nephrology 10/24/23 Yasmeen Powers MD 500 [place] [address] Assigned Nephrology Provider 11/08/23 documented as of this encounter
--- OUTSIDE RECORDS SUMMARY | 2023-12-15 10:13 | XMS_ITS | Encounter Summary ---
Author Organization [facility] Address [address] [place] [address] Care Team Providers Care Rent And Housing Investigator Name Role Phone Rubén Boyle MD Primary Care Provider [phone] Pamela Blanco PHOTOGRAPHIC LABORATORY SUPERVISOR Unavailable Pedro Segura MD Unavailable [phone] Freddy Craft MD Unavailable [phone] Abdifatah Van MD Unavailable Nicole Carranza PHOTOGRAPHIC LABORATORY SUPERVISOR Unavailable [phone] Andressa Ruiz-C Unavailable Ashlyn Storm RN Unavailable [phone] Rubén Gunter [facility] Unavailable Andressa Ruiz-C Unavailable Suzan Harry MD Unavailable Yasmeen Powers MD Unavailable Yasmeen Powers MD Unavailable [phone] Encounter Details Date Type Department Care Team (Late st Contact Info) Description 09/16/2016 MyC Medical Advice Initial Department Lilliam Collier [...] documented as of this encounter Care Teams Rent And Housing Investigator Relationship Specialty Start Date End Date Rubén Boyle MD PCP - General Family Practice 03/08/16 Pamela Blanco NP [facility] [address] [place], [place] [id number] Referring Physician 07/13/16 Pedro Segura MD [facility] [address] [place] [address] Nephrology 10/03/16 Freddy Craft MD 516 [facility] [address] [place] [address] Assigned Gastroenterology Provider 02/08/20 Abdifatah Van MD [facility] [facility] [address] [place] [address] Assigned Nephrology Provider 07/13/20 11/07/23 Nicole Carranza NP 420 [facility] [address] [place], [place] [address] Assigned Heart and Vascular Provider 01/09/22 Andressa Ruiz PA-C 420 [facility] 803 [place] [address] Physician Instrumentation Tech Endocrinology, Diabetes, and Metabolism 03/01/22 Ashlyn Storm, RN [facility] 711 [place] [address] Registered Nurse 03/03/22 09/15/22 Rubén Gunter [facility] [address] [place] [address] Assigned MTM Pharmacist 02/27/22 Andressa Ruiz PA-C 420 [facility] 803 [place] [address] Assigned Endocrinology Provider 03/13/22 09/07/23 Suzan Harry MD 420 [place] [address] Nephrology 06/30/23 Yasmeen Powers MD 500 [place] [address] Nephrology 10/24/23 Yasmeen Powers MD 500 [place] [address] Assigned Nephrology Provider 11/08/23 documented as of this encounter
--- OUTSIDE RECORDS SUMMARY | 2023-12-15 10:13 | XMS_ITS | Encounter Summary ---
Author Organization [facility] Address [address] [place] [address] Care Team Providers Care Incubator Operator Name Role Phone Rubén Boyle MD Primary Care Provider Pamela Blanco EXECUTIVE PILOT Unavailable Pedro Segura MD Unavailable Freddy Craft MD Unavailable [phone] Abdifatah Van MD Unavailable Nicole Carranza EXECUTIVE PILOT Unavailable Andressa Ruiz-C Unavailable Ashlyn Storm RN Unavailable [phone] Rubén Gunter [facility] Unavailable Andressa Ruiz-C Unavailable Suzan Harry MD Unavailable [phone] Yasmeen Powers MD Unavailable Yasmeen Powers MD Unavailable [phone] Encounter Details Date Type Department Care Team (Late st Contact Info) Description 11/03/[address] [facility] [address] [place] [address] Social History Tobacco Use Types [...] Associated Diagnosis Comments EXTERNAL LAB RESULTS Routine 11/02/2016 10:15 AM CDT documented in this encounter Results * (ABNORMAL) TXP External Lab Result (11/02/2016 10:15 AM CDT) Sodium (External) 139 135 - 145 mmol/L LABDE SCAN Potassium (External) 5.5(H) 3.5 - 5.0 mmol/L LABDE SCAN Chloride (External) 106 98 - 110 mmol/L LABDE SCAN CO2 (External) 27 21 - 31 mmol/L LABDE SCAN Anion Gap (External) 6 5 - 18 LABDE SCAN Glucose (External) 154(H) 65 - 100 mg/dL LABDE SCAN Calcium (External) 9.6 8.5 - 10.5 mg/dL LABDE SCAN Urea Nitrogen (External) 41(H) 8 - 25 mg/dL LABDE SCAN Creatinine (External) 2.20(H) 0.72 - 1.25 mg/dL LABDE SCAN BUN/Creatinine Ratio (External) 19 10 - 20 LABDE SCAN GFR Estimated (if ) (External) 37(L) >60 ml/min/1. 73m2 LABDE SCAN GFR Estimated [...] - 45 IU/L LABDE SCAN AST (External) 10 2 - 40 Viktoria/L LABDE SCAN Magnesium (External) 1.8 1.6 - 2.6 mg/dL LABDE SCAN Phosphorus (External) 4.7 LABDE SCAN WBC Count (External) 2.6(L) 4.5 - 11.0 thou/cu mm LABDE SCAN RBC Count (External) 3.48(L) 4.30 - 5.90 mil/cu mm LABDE SCAN Hemoglobin (External) 9.9(L) 13.5 - 17.5 g/dL LABDE SCAN Hematocrit (External) 29.4(L) 31.0 - 53.0 % LABDE SCAN MCV (External) 85 fL LABDE SCAN MCH (External) 28.4 26.0 - 34.0 pg LABDE SCAN MCHC (External) 33.7 32.0 - 38.0 % LABDE SCAN RDW (External) 13.2 11.5 - 15.5 % LABDE SCAN Platelet Count (External) 140 140 - 440 thou/cu mm LABDE SCAN MPV (External) 9.4 6.5 - 11.0 fL LABDE SCAN Tacrolimus(FK-50 6) (External) 8.8 8 - 10 ng/mL LABDE SCAN Tacrolimus Last Dose (External) 11/01/2016 at 8:00 PM LABDE SCAN 11/02/2016 10:1 5 AM CDT Narrative SAMANTHA PFT - 11/04/2016 10:25 AM CDT Verified by Cruzito Marlow on 11/03/2016. Verified by Cruzito Marlow on 11/04/2016. Patient Reported LABORATORY BREEZKayli PFT LABDE SCAN documented in this encounter Visit Diagnoses Not on filedocumented in this encounter Additional Health Concerns Infection Onset Date Last Indicated Resolved Time 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/16 urine, 07/10/16 rectal swab 06/21/2016 06/21/2016 documented as of this encounter Care Teams Incubator Operator Relationship Specialty Start Date End Date Rubén Boyle MD PCP - General Family Practice 03/08/16 Pamela Blanco EXECUTIVE PILOT [facility] [address] [place] [address] Referring Physician 07/13/16 Pedro Segura MD [facility] [address] [place], [place] [address] Nephrology 10/03/16 Freddy Craft MD 516 [facility] 2A [place], [place] [id number] Assigned Gastroenterology Provider 02/08/20 Abdifatah Van MD 717 [facility] [address] [place], [place] [id number] Assigned Nephrology Provider 07/13/20 11/07/23 Nicole Carranza NP 420 [facility] 508 [place], [place] [address] Assigned Heart and Vascular Provider 01/09/22 Andressa Ruiz PA-C 420 [facility] 803 [place], [place] [address] Physician Customer Experience Analyst Endocrinology, Diabetes, and Metabolism 03/01/22 Ashlyn Storm, RN [facility] 711 [place] [address] Registered Nurse 03/03/22 09/15/22 Rubén Gunter RPH 909 [place], [place] [address] Assigned MTM Pharmacist 02/27/22 Andressa Ruiz PA-C 420 [facility] 803 [place] [address] Assigned Endocrinology Provider 03/13/22 09/07/23 Suzan Harry MD 420 [place], [place] [phone] Nephrology 06/30/23 Yasmeen Powers MD 500 [place], [place] [id number] Nephrology 10/24/23 Yasmeen Powers MD 500 [place], [place] [address] Assigned Nephrology Provider 11/08/23 documented as of this encounter
--- OUTSIDE RECORDS SUMMARY | 2023-12-15 10:13 | XMS_ITS | Encounter Summary ---
Author Organization [facility] Address [address] [place] [address] Care Team Providers Care Powerbuilder Name Role Phone Rubén Boyle MD Primary Care Provider [phone] Pamela Blanco FINNISH RUBBER Unavailable Pedro Segura MD Unavailable Freddy Craft MD Unavailable [phone] Abdifatah Van MD Unavailable Nicole Carranza FINNISH RUBBER Unavailable [phone] Andressa Ruiz-C Unavailable Ashlyn Storm RN Unavailable Rbuén Gunter [facility] Unavailable Andressa Ruiz-C Unavailable [phone] Suzan Harry MD Unavailable [phone] Yasmeen Powers MD Unavailable Yasmeen Powers MD Unavailable [phone] Encounter Details Date Type Department Care Team (Late st Contact Info) Description 08/30/2016 External Order Results [facility] 909 [place] [address] Social History Tobacco Use Types [...] Associated Diagnosis Comments EXTERNAL LAB RESULTS Routine 08/30/2016 9:00 AM CDT documented in this encounter Results * (ABNORMAL) TXP External Lab Result (08/30/2016 9:00 AM CDT) Sodium (External) 138 136 - 146 mmol/L LABDE SCAN Potassium (External) 3.7 3.5 - 5.0 mmol/L LABDE SCAN Chloride (External) 105 98 - 110 mmol/L LABDE SCAN CO2 (External) 27 21 - 31 mmol/L LABDE SCAN Anion Gap (External) 6 5 - 18 LABDE SCAN Glucose (External) 132(H) 65 - 100 mg/dL LABDE SCAN Calcium (External) 8.7 8.5 - 10.5 mg/dL LABDE SCAN Urea Nitrogen (External) 26(H) 8 - 25 mg/dL LABDE SCAN Creatinine (External) 2.04(H) 0.72 - 1.26 mg/dL LABDE SCAN BUN/Creatinine Ratio (External) 13 10 - 20 LABDE SCAN GFR Estimated (if ) (External) 40(L) >60 ml/min/1. 73 m2 LABDE SCAN GFR Estimated (External) 33(L) >60 ml/min/1. 73 m2 LABDE SCAN Albumin (External) 3.0(L) 3.2 - 4.6 g/dL LABDE SCAN Protein Total (External) 5.6(L) 6.0 - 8.0 g/dL LABDE SCAN Bilirubin Total (External) 0.5 0.2 - 1.2 mg/dL LABDE SCAN Bilirubin Direct (External) 0.2 0.2 - 0.8 mg/dL LABDE SCAN Alk Phosphatase (External) 57 50 - 136 IU/L LABDE SCAN ALT (External) 9 8 - 46 IU/L LABDE SCAN AST (External) 14 2 - 40 IU/L LABDE SCAN Magnesium (External) 1.4(L) 1.6 - 2.6 mg/dL LABDE SCAN Phosphorus (External) 4.8(H) 2.3 - 4.7 mg/dL LABDE SCAN WBC Count (External) 3.0(L) 4.5 - 11.0 thou/cu mm LABDE SCAN RBC Count (External) 3.08(L) 4.30 - 5.90 mil/cu mm LABDE SCAN Hemoglobin (External) 9.0(L) 13.5 - 17.5 g/dL LABDE SCAN Hematocrit (External) 27.3(L) 37.0 - 53.0 % LABDE SCAN MCV (External) 89 80 - 100 fL LABDE SCAN MCH (External) 29.2 28.0 - 34.0 pg LABDE SCAN MCHC (External) 33.0 32.0 - 36.0 g/dL LABDE SCAN RDW (External) 14.9 11.5 - 15.5 % LABDE SCAN Platelet Count (External) 186 140 - 440 thou/cu mm LABDE SCAN MPV (External) 9.4 6.5 - 11.0 fL LABDE SCAN Tacrolimus(FK-50 6) (External) 13.6 12 - 15 LABDE SCAN Tacrolimus Last Dose (External) Not given LABDE SCAN 08/30/2016 9:00 AM CDT Narrative SAMANTHA MICHELLET - 09/01/2016 1:00 PM CDT Verified by Cruzito Marlow on 08/30/2016. Verified by Yamil Santo on 09/01/2016. Verified by Cruztio Marlow on 09/01/2016. 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, 07/10/16 rectal swab 06/21/2016 06/21/2016 documented as of this encounter Care Teams Powerbuilder Relationship Specialty Start Date End Date Rubén Boyle MD PCP - General Family Practice 03/08/16 Pamela Blanco NP [facility] [address] [place] [address] Referring Physician 07/13/16 Pedro Segura MD [facility] [address] [place] [address] Nephrology 10/03/16 Freddy Craft MD [address] [facility] [place], [place] [address] Assigned Gastroenterology Provider 02/08/20 Abdifatah Van MD 717 [facility] [address] [place], [place] [address] Assigned Nephrology Provider 07/13/20 11/07/23 Nicole Carranza NP 420 [facility] 508 [place], [place] [address] Assigned Heart and Vascular Provider 01/09/22 Andressa Ruiz PA-C 420 [facility] 803 [place], [place] [address] Physician Rn Informatics Endocrinology, Diabetes, and Metabolism 03/01/22 Ashlyn Storm, RN [facility] 711 [place], [place] [address] Registered Nurse 03/03/22 09/15/22 Rubén Gunter [facility] 909 [place] [address] Assigned MTM Pharmacist 02/27/22 Andressa Ruiz PA-C 420 [facility] 803 [place] [address] Assigned Endocrinology Provider 03/13/22 09/07/23 Suzan Harry MD 420 [place] [address] Nephrology 06/30/23 Yasmeen Powers MD 500 [place] [address] Nephrology 10/24/23 Yasmeen Powers MD 500 [place] [address] Assigned Nephrology Provider 11/08/23 documented as of this encounter
--- OUTSIDE RECORDS SUMMARY | 2023-12-15 10:13 | XMS_ITS | Encounter Summary ---
Author Organization [facility] Address [address] [place] [address] Care Team Providers Care Otc Clerk Name Role Phone Rubén Boyle MD Primary Care Provider Pamela Blanco ELECTRONIC NEWS GATHERING EDITOR Unavailable Pedro Segura MD Unavailable Freddy Craft MD Unavailable Abdifatah Van MD Unavailable Nicole Carranza ELECTRONIC NEWS GATHERING EDITOR Unavailable Andressa Ruiz-C Unavailable [phone] Ashlyn Storm RN Unavailable Rubén Gunter [facility] Unavailable Andressa Ruiz-C Unavailable Suzan Harry MD Unavailable [phone] Yasmeen Powers MD Unavailable [phone] Yasmeen Powers MD Unavailable [phone] Encounter Details Date Type Department Care Team (Late st Contact Info) Description 10/26/2016 External Order Results [facility] [address] [place] [address] Social History Tobacco Use Types [...] Associated Diagnosis Comments EXTERNAL LAB RESULTS Routine 10/26/2016 10:20 AM CDT documented in this encounter Results * (ABNORMAL) TXP External Lab Result (10/26/2016 10:20 AM CDT) Sodium (External) 138 135 - 145 mmol/L LABDE SCAN Potassium (External) 5.3(H) 3.5 - 5.0 mmol/L LABDE SCAN Chloride (External) 104 98 - 110 mmol/L LABDE SCAN CO2 (External) 28 21 - 31 mmol/L LABDE SCAN Anion Gap (External) 6 5 - 18 LABDE SCAN Glucose (External) 197(H) 65 - 100 mg/dL LABDE SCAN Calcium (External) 9.6 8.5 - 10.5 mg/dL LABDE SCAN Urea Nitrogen (External) 28(H) 8 - 25 mg/dL LABDE SCAN Creatinine (External) 2.02(H) 0.72 - 1.25 mg/dL LABDE SCAN BUN/Creatinine Ratio (External) 14 10 - 20 LABDE SCAN GFR Estimated (if ) (External) 41(L) >60 ml/min/1. 73m2 LABDE SCAN GFR Estimated (External) 33(L) >60 ml/min/1. 73m2 LABDE SCAN Albumin (External) 4.0 3.2 - 4.6 g/dL LABDE SCAN Protein Total (External) 6.0 6.0 - 8.0 g/dL LABDE SCAN Bilirubin Total (External) 0.9 0.2 - 1.2 mg/dL LABDE SCAN Bilirubin Direct (External) 0.3 0.1 - 0.5 mg/dL LABDE SCAN Alk Phosphatase (External) 69 50 - 136 IU/L LABDE SCAN ALT (External) 6(L) 8 - 45 IU/L LABDE SCAN AST (External) 11 2 - 40 IU/L LABDE SCAN Magnesium (External) 1.7 1.6 - 2.6 mg/dL LABDE SCAN Phosphorus (External) 4.7 2.3 - 4.7 mg/dl LABDE SCAN WBC Count (External) 2.8(L) 4.5 - 11.0 thou/cu mm LABDE SCAN RBC Count (External) 3.81(L) 4.30 - 5.90 mil/cu mm LABDE SCAN Hemoglobin (External) 10.7(L) 13.5 - 17.5 g/dL LABDE SCAN Hematocrit (External) 31.7(L) 37.0 - 53.0 % LABDE SCAN MCV (External) 83 80 - 100 fL LABDE SCAN MCH (External) 28.1 26.0 - 34.0 pg LABDE SCAN MCHC (External) 33.8 32.0 - 36.0 g/dl LABDE SCAN RDW (External) 13.0 11.5 - 15.5 % LABDE SCAN Platelet Count (External) 158 140 - 440 thou/cu mm LABDE SCAN MPV (External) 9.0 6.5 - 11.0 fL LABDE SCAN Tacrolimus(FK-50 6) (External) 9.5 8 - 10 ng/ml LABDE SCAN Tacrolimus Last Dose (External) 10/25/2016 at 2000 LABDE SCAN 10/26/2016 10:2 0 AM CDT Narrative SAMANTHA PFT - 10/27/2016 1:16 PM CDT Verified by Rhiannon Cain on 10/26/2016. Verified by Rhiannon Cain on 10/27/2016. 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, 07/10/16 rectal swab 06/21/2016 06/21/2016 documented as of this encounter Care Teams Otc Clerk Relationship Specialty Start Date End Date Rubén Boyle MD PCP - General Family Practice 03/08/16 Pamela Blanco ELECTRONIC NEWS GATHERING EDITOR [facility] [address] [place] [address] Referring Physician 07/13/16 Pedro Segura MD [facility] [address] [place] [address] Nephrology 10/03/16 Freddy Craft MD 516 [facility] 2A [place], [place] [address] Assigned Gastroenterology Provider 02/08/20 Abdifatah Van MD 7[address] [facility] [address] [place], [place] [address]894 Assigned Nephrology Provider 07/13/20 11/07/23 Nicole Carranza NP 420 [facility] 508 [place], [place] 320445 Assigned Heart and Vascular Provider 01/09/22 Andressa Ruiz PA-C 420 [facility] 803 [place], [place] 682025 Physician Business Functional Analyst Endocrinology, Diabetes, and Metabolism 03/01/22 Ashlyn Storm, RN [facility] [address] [place], [place] [id number] Registered Nurse 03/03/22 09/15/22 Rubén Gunter [facility] [address] [place], [place] [id number] Assigned MTM Pharmacist 02/27/22 Andressa Ruiz PA-C 420 [facility] 803 [place], [place] 520785 Assigned Endocrinology Provider 03/13/22 09/07/23 Suzan Harry MD [address] [place] [address]85 Nephrology 06/30/23 Yasmeen Powers MD [address] [place], [place] 632485 Nephrology 10/24/23 Yasmeen Powers MD [address] [place], [place] 638045 Assigned Nephrology Provider 11/08/23 documented as of this encounter
--- OUTSIDE RECORDS SUMMARY | 2023-12-15 10:13 | XMS_ITS | Encounter Summary ---
Author Organization [facility] Address [address] [place] [address] Care Team Providers Care Cardiovascular Technician Name Role Phone Rubén Boyle MD Primary Care Provider [phone] Pamela Blanco MUTTON PUNCHER Unavailable Pedro Segura MD Unavailable [phone] Freddy Craft MD Unavailable Abdifatah Van MD Unavailable Nicole Carranza MUTTON PUNCHER Unavailable Andressa Ruiz-C Unavailable Ashlyn Storm RN Unavailable Rubén Gunter [facility] Unavailable Andressa Ruiz-C Unavailable [phone] Suzan Harry MD Unavailable [phone] Yasmeen Powers MD Unavailable [phone] Yasmeen Powers MD Unavailable [phone] Encounter Details Date Type Department Care Team (Late st Contact Info) Description 09/17/2016 External Order Results [facility] [address] [place] [address] Social History Tobacco Use Types [...] Associated Diagnosis Comments EXTERNAL LAB RESULTS Routine 09/17/2016 8:55 AM CDT documented in this encounter Results * (ABNORMAL) TXP External Lab Result (09/17/2016 8:55 AM CDT) Sodium (External) 141 135 - [...] - 25 mg/dL LABDE SCAN Creatinine (External) 1.38(H) 0.72 - 1.25 mg/dL LABDE SCAN BUN/Creatinine Ratio (External) 12 10 - 20 LABDE SCAN GFR Estimated (if ) (External) >60 >60 ml/min/1. 73 m2 LABDE SCAN GFR Estimated (External) 52(L) >60 ml/min/1. 73 m2 LABDE SCAN Albumin (External) 3.1(L) 3.2 - 4.6 g/dL LABDE SCAN Protein Total (External) 5.2(L) 6.0 - 8.0 g/dL LABDE SCAN Bilirubin Total (External) 0.5 0.2 - 1.2 mg/dL LABDE SCAN Bilirubin Direct (External) 0.2 0.1 - 0.5 mg/dL LABDE SCAN Alk Phosphatase (External) 48(L) 50 - 136 IU/L LABDE SCAN ALT (External) 7(L) 8 - 45 IU/L LABDE SCAN AST (External) 14 2 - 40 IU/L LABDE SCAN Magnesium (External) 1.7 1.6 - 2.6 mg/dL LABDE SCAN Phosphorus (External) 4.8(H) 2.3 - 4.7 mg/dL LABDE SCAN WBC Count (External) 2.3(L) 4.5 - 11.0 thou/cu mm LABDE SCAN RBC Count (External) 3.10(L) 4.30 - 5.90 mil/cu mm LABDE SCAN Hemoglobin (External) 9.0(L) 13.5 - 17.5 g/dL LABDE SCAN Hematocrit (External) 27.8(L) 37.0 - 53.0 % LABDE SCAN MCV (External) 90 80 - 100 fL LABDE SCAN MCH (External) 29.0 26.0 - 34.0 pg LABDE SCAN MCHC (External) 32.3 32.0 - 36.0 g/dL LABDE SCAN RDW (External) 14.3 11.5 - 15.5 % LABDE SCAN Platelet Count (External) 167 140 - 440 thou/cu mm LABDE SCAN MPV (External) 8.8 6.5 - 11.0 fL LABDE SCAN INR (External) 1.6(H) <1.3 LABDE SCAN PT - Prothrombine Time (External) 18.6(H) 11.7 - 14.1 sec LABDE SCAN Tacrolimus(FK-506 ) (External) 8.0(L) 10 - 12 ng/mL LABDE SCAN Tacrolimus Last Dose (External) 09/16/16 at 2000 LABDE SCAN 09/17/2016 8:55 AM CDT Narrative SAMANTHA PFT - 09/20/2016 1:29 PM CDT Verified by Myrna Monreal on 09/17/2016. Verified by Myrna Monreal on 09/20/2016. 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, 07/10/16 rectal swab 06/21/2016 06/21/2016 documented as of this encounter Care Teams Cardiovascular Technician Relationship Specialty Start Date End Date Rubén Boyle MD PCP - General Family Practice 03/08/16 Pamela Blanco MUTTON PUNCHER [facility] [address] [place], [place] 942067 Referring Physician 07/13/16 Pedro Segura MD [facility] [address] [place], [place] [id number] Nephrology 10/03/16 Freddy Craft MD 516 [facility] 2A [place] [address] Assigned Gastroenterology Provider 02/08/20 Abdifatah Van MD 717 [facility] [address] [place] [address] Assigned Nephrology Provider 07/13/20 11/07/23 Nicole Carranza NP 420 [facility] 508 [place] [address] Assigned Heart and Vascular Provider 01/09/22 Andressa Ruiz PA-C 420 [facility] 803 [place] [address] Physician Multi Purpose Machine Operator Endocrinology, Diabetes, and Metabolism 03/01/22 Ashlyn Storm RN [facility] 711 [place], [place] [id number] Registered Nurse 03/03/22 09/15/22 Rubén Gunter [facility] 909 [place] [address] Assigned MTM Pharmacist 02/27/22 Andressa Ruiz PA-C 420 [facility] [address]03 [place], [place] [address] Assigned Endocrinology Provider 03/13/22 09/07/23 Suzan Harry MD 420 [place], [place] 833065 Nephrology 06/30/23 Yasmeen Powers MD 500 [place], [place] 35[address]15 Nephrology 10/24/23 Yasmeen Powers MD [address] [place], [place] 501035 Assigned Nephrology Provider 11/08/23 documented as of this encounter
--- OUTSIDE RECORDS SUMMARY | 2023-12-15 10:13 | XMS_ITS | Encounter Summary ---
Author Organization [facility] Address [address] [place] [address] Care Team Providers Care Agricultural Produce Packer Name Role Phone Rubén Boyle MD Primary Care Provider [phone] Pamela Blanco MICA MINER BLASTING Unavailable [phone] Pedro Segura MD Unavailable [phone] Freddy Craft MD Unavailable Abdifatah Van MD Unavailable Nicole Carranza MICA MINER BLASTING Unavailable [phone] Andressa Ruiz-C Unavailable [phone] Ashlyn Storm RN Unavailable Rubén Gunter [facility] Unavailable Andressa Ruiz-C Unavailable Suzan Harry MD Unavailable [phone] Yasmeen Powers MD Unavailable [phone] Yasmeen Powers MD Unavailable [phone] Encounter Details Date Type Department Care Team (Latest Contact Info) Description 09/02/2016 External Order Results [facility] [address] [place] [address] History of liver transplant (H); Status post kidney transplant; Abdominal fluid collection Social History Tobacco Use Types Packs/Day Years [...] Associated Diagnosis Comments EXTERNAL LAB RESULTS Routine 09/02/2016 9:08 AM CDT documented in this encounter Results * Cell count with differential fluid (09/02/2016 2:45 PM CDT) Body Fluid Analysis Source KATELYNN DRAIN FLUID [facility] Color Fluid Yellow [facility] Appearance Fluid Cloudy [facility] RBC Fluid << Do Not Report >> /uL [facility] WBC Fluid 1254 /uL [facility] % Neutrophils Fluid 82 % [facility] % Lymphocytes Fluid 1 % [facility] % [place]/Macro Fluid 16 % [facility] % Basophils Fluid 1 % [facility] 09/02/2016 2:45 PM CDT 09/02/2016 4:01 PM CDT Aime Vu MD LAB - BODY FLUIDS ORDERABLES [facility] [address] [phone] * Triglyceride Fluid (09/02/2016 2:45 PM CDT) Triglyceride Fluid Source KATELYNN DRAIN FLUID [facility] Triglyceride Fluid 362 mg/dL [facility] Comment: No reference ranges have been established. ??This result should be interpreted in the context of the patient's clinical condition and compared to simultaneous measurement in the patient's blood. ??Refer to Lab Guide for specific interpretive guidelines. Pleural fluid specimen (specimen) 09/02/2016 2:45 PM CDT 09/02/2016 4:01 PM CDT Aime Vu MD LAB - BODY FLUIDS ORDERABLES [id number] [place] [address] [phone] * (ABNORMAL) TXP External Lab Result (09/02/2016 9:08 AM CDT) Sodium (External) 141 135 - 145 mmol/L LABDE SCAN Potassium (External) 4.2 3.5 - 5.0 mmol/L LABDE SCAN Chloride (External) 109 98 - 110 mmol/L LABDE SCAN CO2 (External) 24 21 - 31 mmol/L LABDE SCAN Anion Gap (External) 8 5 - 18 LABDE SCAN Glucose (External) 133(H) 65 - 100 mg/dL LABDE SCAN Calcium (External) 8.8 8.5 - 10.5 mg/dL LABDE SCAN Urea Nitrogen (External) 24 8 - 25 mg/dL LABDE SCAN Creatinine (External) 1.55(H) 0.72 - 1.25 mg/dL LABDE SCAN BUN/Creatinine Ratio (External) 15 10 - 20 LABDE SCAN GFR Estimated (if ) (External) 55(L) >60 ml/min/1.7 3 m2 LABDE SCAN GFR Estimated (External) 45(L) >60 ml/min/1.7 3 m2 LABDE SCAN Albumin (External) 3.2 3.2 - 4.6 g/dL LABDE SCAN Protein Total (External) 5.4(L) 6.0 - 8.0 g/dL LABDE SCAN Bilirubin Total (External) 0.5 0.2 - 1.2 mg/dL LABDE SCAN Bilirubin Direct (External) 0.2 0.1 - 0.5 mg/dL LABDE SCAN Alk Phosphatase (External) 55 50 - 136 IU/L LABDE SCAN ALT (External) <5(L) 8 - 45 IU/L LABDE SCAN AST (External) 15 2 - 40 IU/L LABDE SCAN Magnesium (External) 1.5(L) 1.6 - 2.6 mg/dL LABDE SCAN Phosphorus (External) 3.8 2.3 - 4.7 mg/dL LABDE SCAN WBC Count (External) 3.8(L) 4.5 - 11.0 thou/cu mm LABDE SCAN RBC Count (External) 2.98(L) 4.30 - 5.90 mil/cu mm LABDE SCAN Hemoglobin (External) 8.9(L) 13.5 - 17.5 g/dL LABDE SCAN Hematocrit (External) 27.0(L) 37.0 - 53.0 % LABDE SCAN MCV (External) 91 80 - 100 fL LABDE SCAN MCH (External) 29.9 26.0 - 34.0 pg LABDE SCAN MCHC (External) 33.0 32.0 - 36.0 g/dL LABDE SCAN RDW (External) 15.3 11.5 - 15.5 % LABDE SCAN Platelet Count (External) 171 140 - 440 thou/cu mm LABDE SCAN MPV (External) 9.5 6.5 - 11.0 fL LABDE SCAN 09/02/2016 9:08 AM CDT Narrative SAMANTHA PFT - 09/02/2016 1:28 PM CDT Verified by Myrna Monreal on 09/02/2016. Patient Reported LABORATORY SAMANTHA PFT LABDE SCAN documented in this encounter Visit Diagnoses Diagnosis History of liver transplant (H) Liver replaced by transplant Status post kidney transplant Abdominal fluid collection Other ascites documented in this encounter Additional Health Concerns Infection Onset Date Last Indicated Resolved Time 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/16 urine, 07/10/16 rectal swab 06/21/2016 06/21/2016 documented as of this encounter Care Teams Agricultural Produce Packer Relationship Specialty Start Date End Date Rubén Boyle MD PCP - General Family Practice 03/08/16 Pamela Blanco, MICA MINER BLASTING [facility] [address] [place] [address] Referring Physician 07/13/16 Pedro Segura MD [facility] [address] [place] [address] Nephrology 10/03/16 Freddy Craft MD 516 [facility] [address] [place], [place] [address] Assigned Gastroenterology Provider 02/08/20 Abdifatah Van MD 717 [facility] [address] [place], [place] [address] Assigned Nephrology Provider 07/13/20 11/07/23 Nicole Carranza NP 420 [facility] [address] [place], [place] [address] Assigned Heart and Vascular Provider 01/09/22 Andressa Ruiz PA-C 420 [facility] 803 [place], [place] [address] Physician Emergency Medcl Emt Endocrinology, Diabetes, and Metabolism 03/01/22 Ashlyn Storm RN [facility] 7[address] [place], [place] [address] Registered Nurse 03/03/22 09/15/22 Rubén Gunter [facility] 909 [facility] [address] [place], [place] [address] Assigned MTM Pharmacist 02/27/22 Andressa Ruiz PA-C 420 [facility] 803 [place], [place] [address]25 Assigned Endocrinology Provider 03/13/22 09/07/23 Suzan Harry MD 420 [place], [place] 5284[address] Nephrology 06/30/23 Yasmeen Powers MD 500 [place], [place] [address] Nephrology 10/24/23 Yasmeen Powers MD [address] [place] [address] Assigned Nephrology Provider 11/08/23 documented as of this encounter
--- OUTSIDE RECORDS SUMMARY | 2023-12-15 10:13 | XMS_ITS | Encounter Summary ---
Author Organization [facility] Address [address] [place] [address] Care Team Providers Care Patient Relations Specialist Name Role Phone Rubén Boyle MD Primary Care Provider Pamela Blanco CONSULTING SOLUTION MANAGER Unavailable Pedro Segura MD Unavailable [phone] Freddy Craft MD Unavailable [phone] Abdifatah Van MD Unavailable Nicloe Carranza CONSULTING SOLUTION MANAGER Unavailable [phone] Andressa Ruiz-C Unavailable Ashlyn Storm RN Unavailable Rubén Gunter [facility] Unavailable Andressa Ruiz-C Unavailable Suzan Harry MD Unavailable [phone] Yasmeen Powers MD Unavailable [phone] Yasmeen Powers MD Unavailable [phone] Encounter Details Date Type Department Care Team (Late st Contact Info) Description 09/23/2016 External Order Results [facility] [address] [place] [address] Social History Tobacco Use Types [...] Associated Diagnosis Comments EXTERNAL LAB RESULTS Routine 09/23/2016 9:25 AM CDT documented in this encounter Results * (ABNORMAL) TXP External Lab Result (09/23/2016 9:25 AM CDT) WBC Count (External) 2.2(L) 4.5 - 11.0 thou/cu mm LABDE SCAN RBC Count (External) 3.27(L) 4.30 - 5.90 mil/cu mm LABDE SCAN Hemoglobin (External) 9.5(L) 13.5 - 17.5 g/dL LABDE SCAN Hematocrit (External) 28.8(L) 37.0 - 53.0 % LABDE SCAN MCV (External) 88 80 - 100 fL LABDE SCAN MCH (External) 29.1 26.0 - 34.0 pg LABDE SCAN MCHC (External) 33.0 32.0 - 36.0 g/dL LABDE SCAN RDW (External) 13.7 11.5 - 15.5 % LABDE SCAN Platelet Count (External) 159 140 - 440 thou/cu mm LABDE SCAN MPV (External) 9.1 6.5 - 11.0 fL LABDE SCAN Sodium (External) 141 135 - 145 mmol/L [...] >60 ml/min/1. 73m2 LABDE SCAN Albumin (External) 3.1(L) 3.2 - 4.6 g/dL LABDE SCAN Protein Total (External) 5.4(L) 6.0 - 8.0 g/dl LABDE SCAN Bilirubin Total (External) 0.7 0.2 - 1.2 mg/dL LABDE SCAN Bilirubin Direct (External) 0.3 0.1 - 0.5 mg/dL LABDE SCAN Alk Phosphatase (External) 51 50 - 136 IU/L LABDE SCAN ALT (External) 8 8 - 45 IU/L LABDE SCAN AST (External) 11 2 - 40 IU/L LABDE SCAN Magnesium (External) 1.4(L) 1.6 - 2.8 mg/dL LABDE SCAN Phosphorus (External) 4.2 2.3 - 4.7 mg/dL LABDE SCAN Tacrolimus(FK-50 6) (External) 6.2(L) 8 - 10 ng/mL LABDE SCAN Tacrolimus Last Dose (External) Not given LABDE SCAN 09/23/2016 9:25 AM CDT Narrative SAMANTHA PFT - 09/28/2016 8:29 AM CDT Verified by Rhiannon Cain on 09/23/2016. Verified by Rhiannon Cain on 09/23/2016. Verified by Myrna Monreal on 09/28/2016. Patient Reported LABORATORY BRECARISA PFT LABDE SCAN documented in this encounter Visit Diagnoses Not on filedocumented in this encounter Additional Health Concerns Infection Onset Date Last Indicated Resolved Time 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/16 urine, 07/10/16 rectal swab 06/21/2016 06/21/2016 documented as of this encounter Care Teams Patient Relations Specialist Relationship Specialty Start Date End Date Rubén Boyle MD PCP - General Family Practice 03/08/16 Pamela Blanco NP [facility] [address] [place] [address] Referring Physician 07/13/16 Pedro Segura MD [facility] [address] [place] [address] Nephrology 10/03/16 Freddy Craft MD 516 [facility] 2[address] [place], [place] [address] Assigned Gastroenterology Provider 02/08/20 Abdifatah Van MD 717 [facility] [address] [place], [place] [id number] Assigned Nephrology Provider 07/13/20 11/07/23 Nicole Carranza NP 420 [facility] 508 [place], [place] [id number] Assigned Heart and Vascular Provider 01/09/22 Andressa Ruiz PA-C 420 [facility] 803 [place], [place] [id number] Physician Land Law Examiner Endocrinology, Diabetes, and Metabolism 03/01/22 Ashlyn Storm, RN [facility] 711 [place] [address] Registered Nurse 03/03/22 09/15/22 Rubén Gunter [facility] 909 [place] [address] Assigned MTM Pharmacist 02/27/22 Andressa Ruiz PA-C 420 [facility] 803 [place] [address] Assigned Endocrinology Provider 03/13/22 09/07/23 Suzan Harry MD 420 [place] [address] Nephrology 06/30/23 Yasmeen Powers MD 500 [place], [place] [address] Nephrology 10/24/23 Yasmeen Powers MD 500 [place], [place] [address] Assigned Nephrology Provider 11/08/23 documented as of this encounter
--- OUTSIDE RECORDS SUMMARY | 2023-12-15 10:13 | XMS_ITS | Encounter Summary ---
Author Organization [facility] Address [address] [place] [address] Care Team Providers Care Retail Account Specialist Name Role Phone Rubén Boyle MD Primary Care Provider Pamela Blanco INDUSTRIAL COOK Unavailable Pedro Segura MD Unavailable Freddy Craft MD Unavailable [phone] Abdifatah Van MD Unavailable Nicole Carranza INDUSTRIAL COOK Unavailable Andressa Ruiz-C Unavailable Ashlyn Storm RN Unavailable Rubén Gunter [facility] Unavailable Andressa Ruiz-C Unavailable Suzan Harry MD Unavailable [phone] Yasmeen Pwoers MD Unavailable [phone] Yasmeen Powers MD Unavailable [phone] Encounter Details Date Type Department Care Team (Late st Contact Info) Description 10/13/2016 External Order Results [facility] [address] [place] [address] Social History Tobacco Use Types [...] Associated Diagnosis Comments EXTERNAL LAB RESULTS Routine 10/12/2016 9:20 AM CDT documented in this encounter Results * (ABNORMAL) TXP External Lab Result (10/12/2016 9:20 AM CDT) WBC Count (External) 1.6(L) 4.5 - 11.0 thou/cu mm LABDE SCAN RBC Count (External) 3.51(L) 4.30 - 5.90 mil/cu mm LABDE SCAN Hemoglobin (External) 9.9(L) 13.5 - 17.5 g/dL LABDE SCAN Hematocrit (External) 30.6(L) 37.0 - 53.0 % LABDE SCAN MCV (External) 87 80 - 100 fL LABDE SCAN MCH (External) 28.2 26.0 - 34.0 pg LABDE SCAN MCHC (External) 32.4 32.0 - 36.0 g/dL LABDE SCAN RDW (External) 13.2 11.5 - 15.5 % LABDE SCAN Platelet Count (External) 135(L) 140 - 440 thou/cu mm LABDE SCAN MPV (External) 8.8 6.5 - 11.0 fL LABDE SCAN Sodium (External) 139 135 - 145 mmol/L LABDE SCAN Potassium (External) 5.0 3.5 - 5.0 mmol/L LABDE SCAN Chloride (External) 107 98 - 110 mmol/L LABDE SCAN CO2 (External) 24 21 - 31 mmol/L LABDE SCAN Anion Gap (External) 8 5 - 18 LABDE SCAN Glucose (External) 164(H) 65 - 100 mg/dL LABDE SCAN Calcium (External) 9.5 8.5 - 10.5 mg/dL LABDE SCAN Urea Nitrogen (External) 28(H) 8 - 25 mg/dL LABDE SCAN Creatinine (External) 1.80(H) 0.72 - 1.25 mg/dL LABDE SCAN BUN/Creatinine Ratio (External) 16 10 - 20 LABDE SCAN GFR Estimated (if ) (External) 46(L) >60 ml/min/1.7 3m2 LABDE SCAN GFR Estimated (External) 38(L) >60 ml/min/1.7 3m2 LABDE SCAN Albumin (External) 3.6 3.2 - 4.6 g/dL LABDE SCAN Protein Total (External) 6.1 6.0 - 8.0 g/dL LABDE SCAN Bilirubin Total (External) 0.7 0.2 - 1.2 mg/dL LABDE SCAN Bilirubin Direct (External) 0.3 0.1 - 0.5 mg/dL LABDE SCAN Alk Phosphatase (External) 59 50 - 136 IU/L LABDE SCAN ALT (External) 8 8 - 45 IU/L LABDE SCAN AST (External) 10 2 - 40 IU/L LABDE SCAN Magnesium (External) 1.7 1.6 - 2.6 mg/dL LABDE SCAN Phosphorus (External) 4.3 2.3 - 41 mg/dl LABDE SCAN 10/12/2016 9:20 AM CDT Narrative SAMANTHA PFT - 10/13/2016 9:25 AM CDT Verified by Rhiannon Cain on 10/13/2016. Verified by Rhiannon Cain on 10/13/2016. 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, 07/10/16 rectal swab 06/21/2016 06/21/2016 documented as of this encounter Care Teams Retail Account Specialist Relationship Specialty Start Date End Date Rubén Boyle MD PCP - General Family Practice 03/08/16 Pamela Blanco NP [facility] [address] [place] [address] Referring Physician 07/13/16 Pedro Segura MD [facility] [address] [place] [address] Nephrology 10/03/16 Freddy Craft MD [address] [facility] [address] [place], [place] [address] Assigned Gastroenterology Provider 02/08/20 Abdifatah Van MD [address] [facility] [address] [place], [place] [address] Assigned Nephrology Provider 07/13/20 11/07/23 Nicole Carranza NP [address] [facility] [address] [place], [place] [address] Assigned Heart and Vascular Provider 01/09/22 Andressa Ruiz PA-C [address] [facility] [address] [place], [place] [address] Physician Workplace Trainer And Assessor Endocrinology, Diabetes, and Metabolism 03/01/22 Ashlyn Storm, RN [facility] [address] [place], [place] [address] Registered Nurse 03/03/22 09/15/22 Rubén Gunter [facility] [address] [facility] [address] [place], [place] [address] Assigned MTM Pharmacist 02/27/22 Andressa Ruzi PA-C 420 [facility] [address] [place] [address] Assigned Endocrinology Provider 03/13/22 09/07/23 Suzan Harry MD [address] [place] [address] Nephrology 06/30/23 Yasmeen Powers MD [address] [place] [address] Nephrology 10/24/23 Yasmeen Powers MD [address] [place] [address] Assigned Nephrology Provider 11/08/23 documented as of this encounter
--- OUTSIDE RECORDS SUMMARY | 2023-12-15 10:13 | XMS_ITS | Encounter Summary ---
Author Organization [facility] Address [address] [place] [address] Care Team Providers Care Per Diem Interpreter Name Role Phone Rubén Boyle MD Primary Care Provider [phone] Pamela Blanco DIRECTOR OF RESIDENTIAL SERVICES Unavailable Pedro Segura MD Unavailable [phone] Freddy Craft MD Unavailable Abdifatah Van MD Unavailable Nicole Carranza DIRECTOR OF RESIDENTIAL SERVICES Unavailable [phone] Andressa Ruiz-C Unavailable [phone] Ashlyn Storm RN Unavailable [phone] Rubén Gunter [facility] Unavailable Andressa Ruiz-C Unavailable Suzan Harry MD Unavailable [phone] Yasmeen Powers MD Unavailable [phone] Yasmeen Powers MD Unavailable [phone] Encounter Details Date Type Department Care Team (Late st Contact Info) Description 10/05/2016 External Order Results [facility] [address] [place] [address] Social History Tobacco Use Types [...] Associated Diagnosis Comments EXTERNAL LAB RESULTS Routine 10/07/2016 7:30 AM CDT EXTERNAL LAB RESULTS Routine 10/05/2016 8:48 PM CDT EXTERNAL LAB RESULTS Routine 10/05/2016 5:48 PM CDT EXTERNAL LAB RESULTS Routine 10/05/2016 11:15 AM CDT documented in this encounter Results * (ABNORMAL) TXP External Lab Result (10/07/2016 7:30 AM CDT) INR (External) 1.6(H) <1.3 LABDE SCAN PT - Prothrombine Time (External) 18.9(H) 11.7 - 14.1 sec LABDE SCAN 10/07/2016 7:30 AM CDT Narrative AMNAE PFT - 10/08/2016 5:20 PM CDT Verified by Rhiannon Cain on 10/08/2016. Patient Reported LABORATORY [facility]ZE PFT LABDE SCAN * (ABNORMAL) TXP External Lab Result (10/05/2016 8:48 PM CDT) Potassium (External) 5.1(H) LABDE SCAN 10/05/2016 8:48 PM CDT Narrative AMNAE PFT - 10/11/2016 7:10 AM CDT Verified by Rhiannon Cain on 10/11/2016. Patient Reported LABORATORY SAMANTHA PFT LABDE SCAN * (ABNORMAL) TXP External Lab Result (10/05/2016 5:48 PM CDT) Sodium (External) 137 LABDE SCAN Potassium (External) 5.8(H) LABDE SCAN Chloride (External) 104 LABDE SCAN CO2 (External) 26 LABDE SCAN Anion Gap (External) 7 LABDE SCAN Glucose (External) 185(H) LABDE SCAN Calcium (External) 9.1 LABDE SCAN Urea Nitrogen (External) 29(H) LABDE SCAN Creatinine (External) 1.89(H) LABDE SCAN BUN/Creatinine Ratio (External) 15 LABDE SCAN GFR Estimated (if ) (External) 44(L) LABDE SCAN GFR Estimated (External) 36(L) LABDE SCAN Albumin (External) 3.6 LABDE SCAN Protein Total (External) 5.8(L) LABDE SCAN Bilirubin Total (External) 0.5 LABDE SCAN Alk Phosphatase (External) 69 LABDE SCAN ALT (External) 5(L) LABDE SCAN AST (External) 13 LABDE SCAN WBC Count (External) 2.3(L) LABDE SCAN RBC Count (External) 3.39(L) LABDE SCAN Hemoglobin (External) 9.7(L) LABDE SCAN Hematocrit (External) 29.5(L) LABDE SCAN MCV (External) 87 LABDE SCAN MCH (External) 28.8 LABDE SCAN MCHC (External) 32.9 LABDE SCAN RDW (External) 13.1 LABDE SCAN Platelet Count (External) 169 LABDE SCAN MPV (External) 9.0 LABDE SCAN 10/05/2016 5:48 PM CDT Narrative SAMANTHA PFT - 10/11/2016 7:10 AM CDT Verified by Rhiannon Cain on 10/11/2016. Patient Reported LABORATORY SAMANTHA PFT LABDE SCAN * (ABNORMAL) TXP External Lab Result (10/05/2016 11:15 AM CDT) Albumin (External) 3.6 3.2 - 4.6 g/dl LABDE SCAN Protein Total (External) 5.9(L) 6.0 - 8.0 g/dL LABDE SCAN Bilirubin Total (External) 0.6 0.2 - 1.2 mg/dL LABDE SCAN Bilirubin Direct (External) 0.2 0.1 - 0.5 mg/dL LABDE SCAN Alk Phosphatase (External) 72 50 - 136 IU/L LABDE SCAN ALT (External) 5(L) 8 - 45 IU/L LABDE SCAN AST (External) 11 2 - 40 IU/L LABDE SCAN Magnesium (External) 1.5(L) 1.6 - 2.6 mg/dl LABDE SCAN Phosphorus (External) 4.9(H) 2.4 - 4.7 mg/dL LABDE SCAN WBC Count (External) 2.1(L) 4.5 - 11.0 thou/cu mm LABDE SCAN RBC Count (External) 3.52(L) 4.30 - 5.90 mil/cu mm LABDE SCAN Hemoglobin (External) 10.0(L) 13.5 - 17.5 g/dL LABDE SCAN Hematocrit (External) 30.5(L) 37.0 - 53.0 % LABDE SCAN MCV (External) 87 80 - 100 fL LABDE SCAN MCH (External) 28.4 26.0 - 34.0 pg LABDE SCAN MCHC (External) 32.8 32.0 - 36.0 g/dl LABDE SCAN RDW (External) 13.1 11.5 - 15.5 % LABDE SCAN Platelet Count (External) 157 140 - 440 thou/cu mm LABDE SCAN MPV (External) 8.6 6.5 - 11.0 fL LABDE SCAN Sodium (External) 138 135 - 145 mmol/L LABDE SCAN Potassium (External) 6.6(HH) 3.5 - 5.0 mmol/L LABDE SCAN Chloride (External) 104 98 - 110 mmol/L LABDE SCAN CO2 (External) 26 21 - 31 mmol/L LABDE SCAN Anion Gap (External) 8 5 - 18 LABDE SCAN Glucose (External) 160(H) 65 - 100 mg/dL LABDE SCAN Calcium (External) 9.4 8.5 - 10.5 mg/dL LABDE SCAN Urea Nitrogen (External) 24 8 - 25 mg/dL LABDE SCAN Creatinine (External) 1.69(H) 0.72 - 1.25 mg/dL LABDE SCAN BUN/Creatinine Ratio (External) 14 10 - 20 LABDE SCAN GFR Estimated (if ) (External) 50(L) >60 ml/min/1.7 3m2 LABDE SCAN GFR Estimated (External) 41(L) >60 ml/min/1.7 3m2 LABDE SCAN Tacrolimus(FK-50 6) (External) 23.1(H) 8 - 10 ng/ml LABDE SCAN 10/05/2016 11:1 5 AM CDT Narrative SAMANTHA PFT - 10/08/2016 12:19 PM CDT Verified by Rhiannon Cain on 10/05/2016. Verified by Rhiannon Cain on 10/05/2016. Verified by Rhiannon Cain on 10/08/2016. 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, 07/10/16 rectal swab 06/21/2016 06/21/2016 documented as of this encounter Care Teams Per Diem Interpreter Relationship Specialty Start Date End Date Rubén Boyle MD PCP - General Family Practice 03/08/16 Pamela Blanco NP [facility] [address] [place] [address] Referring Physician 07/13/16 Pedro Segura MD [facility] [address] [place] [address] Nephrology 10/03/16 Freddy Craft MD [address] [place] [address] [address] [place] [address] Assigned Gastroenterology Provider 02/08/20 Abdifatah Van MD [address] [facility] [address] [place] [address] Assigned Nephrology Provider 07/13/20 11/07/23 Nicole Carranza, [place] 420 [facility] [address] [place] [address] Assigned Heart and Vascular Provider 01/09/22 Andressa Ruiz PA-C 420 [facility] [address] [place] [address] Physician Meters Superintendent Endocrinology, Diabetes, and Metabolism 03/01/22 Ashlyn Storm, RN [facility] [address] [place] [address] Registered Nurse 03/03/22 09/15/22 Rubén Gunter [facility] [address] [place] [address] Assigned MTM Pharmacist 02/27/22 Andressa Ruiz PA-C 420 [facility] [address] [place] [address] Assigned Endocrinology Provider 03/13/22 09/07/23 Suzan Harry MD [address] [place] [address] Nephrology 06/30/23 Yasmeen Powers MD [address] [place] [address] Nephrology 10/24/23 Yasmeen Powers MD [address] [place] [address] Assigned Nephrology Provider 11/08/23 documented as of this encounter
--- OUTSIDE RECORDS SUMMARY | 2023-12-15 10:14 | XMS_ITS ---
Author Organization [facility] Address [address] [place] [address] Care Team Providers Care Solar Pv Installer Name Role Phone Rubén Boyle MD Primary Care Provider Pamela Blanco SECURITY SYSTEM TECHNICIAN Unavailable [phone] Pedro Segura MD Unavailable [phone] Freddy Craft MD Unavailable Nicole Carranza SECURITY SYSTEM TECHNICIAN Unavailable [phone] Andressa Ruiz-C Unavailable [phone] Suzan Harry MD Unavailable [phone] Yasmeen Powers MD Unavailable [phone] Yasmeen Powers MD Unavailable [phone] Transplant Episode Kidney Recipient [facility] ([place], [place]) - [facility] Organ Received: 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 Marked as Active Follow-up on 07/11/2016 Kidney CoordinatorFelipa Raya RN Phone: N/A Fax: N/A Email: [email or web address] Donor Information Organ ABO Source Meets Risk Criteria HLA Match Mismatches Cross Match Left Kidney Transplanted A DBD No A: B: DR: Left Kidney Donor Serology Results Anti-HBcAb HBC Total: Negative HBsAg HBsAg: Negative HBsAb No results on file HBV DNA No results on file Anti-HCV HCV: Negative Anti-HIV I/II HIV-1: Negative Anti-CMV CMV IgG: Positive CMV Nucleic Acid: Positive Anti-HTLV I/II No results on file RPR/VDRL No results on file EBV IgG EBV VCA IgG: Positive EBV IgM EBV VCA IgM: Not Done EBNA No results on file Toxoplasma No results on file JEFFY No results on file Care Team Name Role Phone Fax Email Felipa Raya RN Kidney Coordinator N/A N/A [email or web address] Freddy Dumont MD Gravity Prospector [phone] N/A Aime uV MD Transplant Surgeon [phone] [email or web address] Events Post-Transplant Pre-Transplant Admitted: 07/02/2016 Referred: 06/15/2016 Transplanted: 07/11/2016 Evaluation began: 7 Discharged: 11/16/2016 Committee: 06/15/2016 Center waitlisted: 7 Dialysis History Dialysis History Start End Type Comments Center 05/05/2016
--- OUTSIDE RECORDS SUMMARY | 2023-12-15 10:14 | XMS_ITS | Encounter Summary ---
Author Organization [facility] Address [address] [place] [address] Care Team Providers Care Sap Manager Name Role Phone Rubén Boyle MD Primary Care Provider [phone] Pamela Blanco RADIATION ENGINEER Unavailable Pedro Segura MD Unavailable [phone] Freddy Craft MD Unavailable Abdifatah Van MD Unavailable Nicole Carranza RADIATION ENGINEER Unavailable [phone] Andressa Ruiz-C Unavailable Ashlyn Storm RN Unavailable Rubén Gunter [facility] Unavailable Andressa Ruiz-C Unavailable Suzan Haryr MD Unavailable [phone] Yasmeen Powers MD Unavailable Yasmeen Powers MD Unavailable [phone] Encounter Details Date Type Department Care Team (Late st Contact Info) Description 08/04/2016 MyC Medical Advice Initial Department Lilliam Collier [...] documented as of this encounter Care Teams Sap Manager Relationship Specialty Start Date End Date Rubén Boyle MD PCP - General Family Practice 03/08/16 Pamela Blanco NP [facility] [address] [place], [place] [address] Referring Physician 07/13/16 Pedro Segura MD [facility] [address] [place] [address] Nephrology 10/03/16 Freddy Craft MD [address] [facility] [address] [place] [address] Assigned Gastroenterology Provider 02/08/20 Abdifatah Van MD [address] [facility] [address] [place] [address] Assigned Nephrology Provider 07/13/20 11/07/23 Nicole Carranza NP [address] [facility] [address] [place], [place] [address] Assigned Heart and Vascular Provider 01/09/22 Andressa Ruiz PA-C 420 [facility] 8[address] [place] [address] Physician Digital Producer Endocrinology, Diabetes, and Metabolism 03/01/22 Ashlyn Storm, RN [facility] [address] [place] [address] Registered Nurse 03/03/22 09/15/22 Rubén Gunter [facility] [address] [place] [address] Assigned MTM Pharmacist 02/27/22 Andressa Ruiz PA-C 420 [facility] [address] [place] [address] Assigned Endocrinology Provider 03/13/22 09/07/23 Suzan Harry MD 420 [place] [address] Nephrology 06/30/23 Yasmeen Powers MD 500 [place] [address] Nephrology 10/24/23 Yasmeen Powers MD [address] [place] [address] Assigned Nephrology Provider 11/08/23 documented as of this encounter
--- OUTSIDE RECORDS SUMMARY | 2023-12-15 10:14 | XMS_ITS | Clinical Summary ---
Author Organization [facility] Address [address] [place] [address] Care Team Providers Care Associate Financial Advisor Name Role Phone Elsewhere, Pcp Primary Care Provider Unavailabl e Source Comments Patient records contain information from all sites at [facility]. For routine questions regarding patient records, call [phone] during business hours, M-F 8:00 AM - 5:00 PM Central Time. Record requests for emergency care only can be directed to [phone] at any time.[facility] Allergies Active Allergy Reactions Criticality Noted Date Comments Phytonadione (Vitamin K1) Nausea Only,Other (see comments) 07/28/2016 IV formulation Nausea, diaphoresis Medications Medication Sig Dispensed Refills Start Date End Date Status insulin glargine (LANTUS) 100 unit/mL injection Inject 5 Units under the skin at bedtime. Active acetaminophen (TYLENOL) 325 mg tablet Take 650 mg by mouth every 6 (six) hours as needed for pain. Active multivitamin tablet Take 1 tablet by mouth daily. Active doxazosin (CARDURA) 4 mg tablet Take 4 mg by mouth daily. Active tamsulosin (FLOMAX) 0.4 mg 24 hr capsule Take 0.4 mg by mouth daily. Active ferrous sulfate 325 mg (65 mg iron) DR tablet Take 65 mg of iron by mouth daily. 03/02/2022 Active cholecalciferol, vitamin D3, 100 mcg (4,000 unit) tablet Take 4 tablets by mouth daily. 04/17/2021 Active tacrolimus (PROGRAF) 1 mg capsule Take 2 mg by mouth daily. Active fentaNYL (DURAGESIC) 25 mcg/hr patch Place 1 patch on the skin every third day. Active metoprolol tartrate (LOPRESSOR) 25 mg tablet Take 25 mg by mouth 2 (two) times a day. Active aspirin [address] tablet Take 81 mg by mouth daily. Active azaTHIOprine (IMURAN) 50 mg tablet Take 3 tablets by mouth daily. 04/08/2017 Active glipiZIDE (GLUCOTROL) 5 mg tablet Take 5 mg by mouth daily. 11/12/2022 Active clopidogreL (PLAVIX) 75 mg tablet Take 75 mg by mouth daily. 05/06/2022 Active gabapentin (NEURONTIN) 600 mg tablet Take 600 mg by mouth 2 (two) times a day. 03/19/2016 Active citalopram (CeleXA) 40 mg tablet Take 40 mg by mouth daily. 08/18/2017 Active calcium carbonate (TUMS) 500 mg (200 mg calcium) chewable tablet Chew 1 tablet 2 (two) times a day. Active atorvastatin (LIPITOR) 20 mg tablet Take 20 mg by mouth daily. 08/11/2021 Active insulin aspart U-100 (NovoLOG FlexPen) 100 unit/mL (3 mL) injection Inject under the skin 3 (three) times a day with meals. Inject as per sliding scale: if 151 - 200 = 3 UNITS; 201 - 250 = 6 UNITS; 251 - 300 = 9 UNITS; 301 - 350 = 12 UNITS; 351 - 400 = 15 UNITS GREATER THAN 400, NOTIFY CLINICIAN, subcutaneously before meals Active oxyCODONE (ROXICODONE) 5 mg immediate release tabletIndications :Chronic Pain/Nonacute Pain Take 1 tablet (5 mg total) by mouth every 6 (six) hours as needed for pain Indication: Chronic Pain/Nonacute Pain. 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 02/11/20 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 Hypertensive Heart And Chron ic Kidney Disease With Heart Failure And Stage 1 To 4 Chronic Kidney Disease Or Unspecified Chronic Kidney Disease 02/03/2016 Pain Back 02/03/2016 Gastroesophageal Reflux Disease Without Esophagi tis 01/26/2016 Care Home Use Of Insulin Active 12/29/2015 Hyperlipidemia 05/09/2015 Polyp Colon 05/10/2013 Resolved Problems Problem Noted Date Diagnosed Date Resolved Date Hemorrhage Gastrointestinal 06/19/2022 12/06/2022 Hepatic Encephalopathy 02/03/201612/06 Alcoholic Cirrhosis Of Liver Without Ascites 6 12/06/2022 Presence Of Left Artificial Hip Joint 05/09/2015 12/06/2022 Immunizations Name Administration Dates Next Due Influenza (IM) Preservative Free 01/27/2011 Influenza TIV (IM) 01/10/2018, 7,01/24/2016,2012,01/14/2012,01/27/2011,02/04/2010,0 01/14/2009,02/06/2008,02/27/2007, 006,03/03/2005,02/24/2004,02/13/2003 Influenza, Injectable, Quadrivalent 01/24/2016 Influenza, Quadrivalent, Adj uvanted, Preservative Free 01/12/2022,01/12/2021 Influenza, Seasonal, Injectable 01/26/20 17,02/03/2013,01/14/2012,2009,01/14/2009,02/06/2008,02/27/2007,1 05/03/2004,02/24/2004,02/13/2003 Influenza, Unspecified 02/03/2013,2011,01/27/2011,2009,01/14/2009,02/06/2008,02/27/2007,1 05/03/2004,02/24/2004,02/13/2003 PCV13 01/10/2018 PPSV23 02/10/2016,07/24/2010 RZV (SHINGRIX) 08/01/2017 Tdap 07/31/2010 influenza high dose (65 year s or older) (PF) 02/05/2020,03/16/2019,01/24/2016 influenza vaccine (FLUBLOK) (18 years or older) (PF) 01/06/2015,01/09/2014 influenza vaccine quad (FLUZONE/FLUARIX) (6 months and older)(PF) 12/14/2016,01/24/2016,01/06/2015,2013 Social History Tobacco Use Types Packs/Day Years Used Date Smoking Tobacco: Unknown Tobacco Cessation:Counseling Given: Not Answered Nutrition Answer Date Recorded Nutrition: EVOO Fat Source Unknown 12/03 Nutrition: Servings of Fruits/Vegetables per Day Not on file 12/03/2022 Dental Answer Date Recorded Dental: Regular Dentist Unknown 12/04/19 Sex and Gender Information Value Date Recorded Sex Assigned at Not on file Gender Identity Not on file Sexual Orientation Not on file Last Filed Vital Signs Vital Sign Reading Time Taken Comments Blood Pressure 145/81 12/31/2022 8:31 AM CDT Pulse 89 12/31/2022 8:31 AM CDT Temperature 36.8 ??C (98.3 ??F) 12/31/2022 8:31 AM CD T Respiratory Rate 18 12/31/2022 8:31 AM CDT Oxygen Saturation 96% 12/31/2022 8:31 AM CDT Inhaled Oxygen Concentration - - Weight 105 kg (232 lb 6.4 oz) 12/31/2022 8:31 AM CDT Height - - Body Mass Index - - Plan of Treatment Health Maintenance Due Date Last Done Comments CT Colonography 1952 Cologuard 1952 Colonoscopy 1952 Colorectal Cancer Surveillance 1952 Depression Monitoring (PHQ-9) 1952 Diabetic Office Visit with Foot Exam 1952 Generalized Anxiety (ANAND-7) 1952 Hepatitis C Screening 1952 Urine Albumin 1952 Hepatitis A Vaccines (1 of 2 - Risk 2-dose series) 1971 Hepatitis B Vaccines (1 of 3 - Risk 3-dose series) 2012 Zoster Vaccines (2 of 2) 09/26/2017 08/01/2017 DTaP,Tdap,and Td Vaccines (2 - Td or Tdap) 07/31/2020 07/31/2010 Pneumococcal vaccine (65+ years) (4 of 4 - PPSV23 or PCV20) 02/09/2021 01/10/2018, 02/10/2016, 07/24/2010 Controlled Substance Agreement 12/06/2022 Controlled Substance Monitoring (PHQ-9) 12/06/2022 Controlled Substance Monitoring 12/06/2022 Opioid Risk Tool (ORT) 12/06/2022 PEG assessment for Opioid therapy 12/06/2022 Dilated Eye Exam 12/17/2022 12/17/2021, 08/18/2020 Office Visit for Blood Pressure Check / Re-check 04/01/2023 12/31/2022 Fall Risk Screen (Annual) 04/18/2023 Hemoglobin A1C 06/16/2023 12/14/2022, 11/0 12/2021, 07/11/2018, Additional history exists COVID-19 Vaccine ( season) 2023 05/31/2023, 09/17/2021, 01/12/2021, Additional history exists Opioid Use Disorder (OUD) Screening 12/07/2023 Creatinine Level (Kidney Function Test) 12/25/2023 12/24/2022, 08/05/2022, 06/26/2022, Additional history exists Influenza Vaccine (#1) 2024 , 01/12/2022, 01/12/2021, Additional history exists Lipid (Cholesterol) Screening 03/19/2024 03/19/2019, 03/16/2018 HPV Vaccines Aged Out No longer eligi ble based on patient's age to complete this topic Procedures Procedure Name Priority Date/Time Associated Diagnosis Comments COMPREHENSIVE METABOLIC PANEL, S/P STAT 12/24/2022 1:23 PM CDT Enterocolitis Due To Clostridium Difficile Recurrent HEMOGLOBIN A1C, B STAT 12/14/2022 7:5 7 AM CDT Diabetes Mellitus Type 2 With Diabetic Neuropathy (HCC) Transplant Liver (HCC) Transplant Renal (HCC) Gout from Last 3 Months or Most Recently Relevant to Health Maintenance Results * (ABNORMAL) Comprehensive Metabolic Panel (12/24/2022 1:23 PM CDT) Potassium, P 4.6 3.6 - 5.2 mmol/L 12/24/2022 2:13 PM CDT NPRG Sodium, P 137 135 - 145 mmol/L 12/24/2022 2:13 PM CDT NPRG Chloride, P 103 98 - 107 mmol/L 12/24/2022 2:13 PM CDT NPRG Bicarbonate, P 26 22 - 29 mmol/L 12/24/2022 2:14 PM CDT NPRG Anion Gap, P 8 7 - 15 12/24/2022 2:14 PM CDT NPRG BUN (Blood Urea Nitrogen), P 20 8 - 24 mg/dL 12/24/2022 2:14 PM CDT NPRG Creatinine 1.44(H) 0.74 - 1.35 mg/dL 12/24/2022 2:14 PM CDT NPRG Estimated GFR (eGFR) 52(L) >=60 mL/min/BS A 12/24/2022 2:14 PM CDT NPRG Comment: Estimated GFR calculated using the 2020 CKD_EPI creatinine equation. Calcium, Total, P 8.9 8.8 - 10.2 mg/dL 12/24/2022 2:14 PM CDT NPRG Glucose, P 163(H) 70 - 140 mg/dL 12/24/2022 2:14 PM CDT NPRG Protein, Total, P 6.3 6.3 - 7.9 g/dL 12/24/2022 2:14 PM CDT NPRG Albumin, P 3.4(L) 3.5 - 5.0 g/dL 12/24/2022 2:14 PM CDT NPRG Aspartate Aminotransferase (AST), P 16 8 - 48 U/L 12/24/2022 2:14 PM CDT NPRG Alkaline Phosphatase, P 88 40 - 129 U/L 12/24/2022 2:14 PM CDT NPRG Alanine Aminotransferase (ALT), P 7 7 - 55 U/L 12/24/2022 2:14 PM CDT NPRG Bilirubin, Total, P 0.8 <=1.2 mg/dL 12/24/2022 2:14 PM CDT NPRG Blood (Blood, Venous) 12/24/2022 1:23 PM CDT 12/24/2022 1:45 PM CDT Mary Romero APRN, C.N.Ted. LAB BLOOD A DD-ON Performing Organization Address [facility] Co de Phone Number [facility] [address] [place] [address], [facility] NPRG [place] [address] [place] [address] * (ABNORMAL) Hemoglobin A1c (12/14/2022 7:57 AM CDT) Hemoglobin A1c, B 6.2(H) 4.2 - 5.6 % 12/14/2022 8:54 AM CDT NPRG Comment: Hemoglobin A1c values of 5.7-6.4 percent indicate an increased risk for developing diabetes mellitus. In diabetic patients, HbA1c goals should be discussed with healthcare provider. Blood (Blood, Venous) 12/14/2022 7:57 AM CDT 12/14/2022 8:25 AM CDT Citlali Isabel APRN.N.P. LAB BLOOD A DD-ON Performing Organization Address [facility] Co de Phone Number [facility] [address] [place] [address], [facility] NPRG [place] [address] [place] [address] from Last 3 Months or Most Recently Relevant to Health Maintenance Advance Directives For more information, please contact: [phone] Documents on File Type Date Recorded Patient Electrical And Instrument Technician Expl anation Advance Directives 12/06/2022 12:[address] Care Teams Associate Financial Advisor Relationship Specialty Start Date End Date Elsewhere, Pcp PCP - General Internal Medicine 01/06/23
--- OUTSIDE RECORDS SUMMARY | 2023-12-15 10:14 | XMS_ITS | Encounter Summary ---
Author Organization [facility] Address [address] [place] [address] Care Team Providers Care Preforms Laminator Name Role Phone Rubén Boyle MD Primary Care Provider Pamela Blanco AGRICULTURAL EQUIPMENT OPERATOR Unavailable Pedro Segura MD Unavailable [phone] Fredyd Craft MD Unavailable Abdifatah Van MD Unavailable Nicole Carranza AGRICULTURAL EQUIPMENT OPERATOR Unavailable [phone] Andressa Ruiz-C Unavailable Ashlyn Storm RN Unavailable Rubén Gunter [facility] Unavailable Andressa Ruiz-C Unavailable Suzan Harry MD Unavailable [phone] Yasmeen Powers MD Unavailable [phone] Yasmeen Powers MD Unavailable [phone] Encounter Details Date Type Department Care Team (Late st Contact Info) Description 08/25/2016 External Order Results [facility] [address] [place] [address] Social History Tobacco Use Types [...] Associated Diagnosis Comments EXTERNAL LAB RESULTS Routine 08/23/2016 9:13 AM CDT documented in this encounter Results * (ABNORMAL) TXP External Lab Result (08/23/2016 9:13 AM CDT) Sodium (External) 139 135 - 145 mmol/L LABDE SCAN Potassium (External) 4.6 3.5 - 5.0 mmol/L LABDE SCAN Chloride (External) 105 98 - 110 mmol/L LABDE SCAN CO2 (External) 27 21 - 31 mmol/L LABDE SCAN Anion Gap (External) 7 5 - 18 LABDE SCAN Glucose (External) 198(H) 65 - 100 mg/dL LABDE SCAN Calcium (External) 8.6 8.5 - 10.5 mg/dL LABDE SCAN Urea Nitrogen (External) 21 8 - 25 mg/dL LABDE SCAN Creatinine (External) 1.83(H) 0.72 - 1.25 mg/dL LABDE SCAN BUN/Creatinine Ratio (External) 11 10 - 20 LABDE SCAN GFR Estimated (if ) (External) 45(L) >60 ml/min/1.7 3 m2 LABDE SCAN GFR Estimated (External) 37(L) >60 ml/min/1.7 3 m2 LABDE SCAN Albumin (External) 2.9(L) 3.2 - 4.6 g/dL LABDE SCAN Protein Total (External) 5.4(L) 6.0 - 8.0 g/dL LABDE SCAN Bilirubin Total (External) 0.4 0.2 - 1.2 mg/dL LABDE SCAN Bilirubin Direct (External) 0.2 0.1 - 0.5 mg/dL LABDE SCAN Alk Phosphatase (External) 61 50 - 136 IU/L LABDE SCAN ALT (External) 6(L) 8 - 45 IU/L LABDE SCAN AST (External) 12 2 - 40 IU/L LABDE SCAN Magnesium (External) 1.6 1.6 - 2.6 mg/dL LABDE SCAN Phosphorus (External) 4.5 2.3 - 41 mg/dL LABDE SCAN 08/23/2016 9:13 AM CDT Narrative SAMANTHA PFT - 08/25/2016 11:05 AM CDT Verified by Myrna Monreal on 08/25/2016. Patient Reported [facility] PFT LABDE SCAN documented in this encounter Visit Diagnoses Not on filedocumented in this encounter Additional Health Concerns Infection Onset Date Last Indicated Resolved Time 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/16 urine, 07/10/16 rectal swab 06/21/2016 06/21/2016 documented as of this encounter Care Teams Preforms Laminator Relationship Specialty Start Date End Date Rubén Boyle MD PCP - General Family Practice 03/08/16 Pamela Blanco NP [facility] [address] [place] [address] Referring Physician 07/13/16 Pedro Segura MD [facility] [address] [place], [place] [address] Nephrology 10/03/16 Freddy Craft MD [address] [facility] [address] [place] [address] Assigned Gastroenterology Provider 02/08/20 Abdifatah Van MD [address] [facility] [address] [place] [address] Assigned Nephrology Provider 07/13/20 11/07/23 Nicole Carranza NP [address] [facility] [address] [place] [address] Assigned Heart and Vascular Provider 01/09/22 Andressa Ruiz PA-C [address] [facility] [address] [place] [address] Physician Parcel Post Delivery Endocrinology, Diabetes, and Metabolism 03/01/22 Ashlyn Storm RN [facility] [address] [place] [address] Registered Nurse 03/03/22 09/15/22 Rubén Gunter [facility] [address] [place] [address] Assigned MTM Pharmacist 02/27/22 Andressa Ruiz PA-C [address] [place], [place] [address] [place] [address] Assigned Endocrinology Provider 03/13/22 09/07/23 Suzan Harry MD [address] [place] [address] Nephrology 06/30/23 Yasmeen Powers MD [address] [place], [place] [address] Nephrology 10/24/23 Yasmeen Powers MD [address] [place] [address] Assigned Nephrology Provider 11/08/23 documented as of this encounter
--- OUTSIDE RECORDS SUMMARY | 2023-12-15 10:14 | XMS_ITS | Encounter Summary ---
Author Organization [facility] Address [address] [place] [address] Care Team Providers Care Brokerage Manager Name Role Phone Rubén Boyle MD Primary Care Provider Pamela Blanco DRYWALL SPRAYER Unavailable Pedro Segura MD Unavailable Freddy Craft MD Unavailable [phone] Abdifatah Van MD Unavailable Nicole Carranza DRYWALL SPRAYER Unavailable [phone] Andressa Ruiz-C Unavailable [phone] Ashlyn Storm RN Unavailable [phone] Rubén Gunter [facility] Unavailable Andressa Ruiz-C Unavailable Suzan Harry MD Unavailable [phone] Yasmeen Powers MD Unavailable Yasmeen Powers MD Unavailable [phone] Encounter Details Date Type Department Care Team (Late st Contact Info) Description 08/24/2016 External Order Results [facility] [address] [place] [address] Social History Tobacco Use Types [...] Associated Diagnosis Comments EXTERNAL LAB RESULTS Routine 08/13/2016 9:40 AM CDT documented in this encounter Results * (ABNORMAL) TXP External Lab Result (08/13/2016 9:40 AM CDT) [facility] Tacrolimus(FK-5 06) (External) 6.8(L) 12 - 15 ng/mg LABDE SCAN WBC Count (External) 3.0(L) 4.5 - 11.0 thou/cu mm LABDE SCAN RBC Count (External) 2.64(L) 4.30 - 5.90 mil/cu mm LABDE SCAN Hemoglobin (External) 7.7(L) 13.5 - 17.5 g/dL LABDE SCAN Hematocrit (External) 24.2(L) 37.0 - 53.0 % LABDE SCAN MCV (External) 92 80 - 100 fL LABDE SCAN MCH (External) 29.2 26.0 - 34.0 pg LABDE SCAN MCHC (External) 31.8(L) 32.0 - 36.0 g/dL LABDE SCAN RDW (External) 16.6(H) 11.5 - 15.5 % LABDE SCAN Platelet Count (External) 215 140 - 440 thou/cu mm LABDE SCAN MPV (External) 8.1 6.5 - 11.0 fL LABDE SCAN 08/13/2016 9:40 AM CDT Narrative SAMANTHA PFT - 08/24/2016 12:53 PM CDT Verified by Rhiannon Cain on 08/24/2016. Verified by Myrna Monreal on 08/24/2016. Patient Reported LABORAT[facility] PFT LABDE SCAN documented in this encounter Visit Diagnoses Not on filedocumented in this encounter Additional Health Concerns Infection Onset Date Last Indicated Resolved Time 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/16 urine, 07/10/16 rectal swab 06/21/2016 06/21/2016 documented as of this encounter Care Teams Brokerage Manager Relationship Specialty Start Date End Date Rubén Boyle MD PCP - General Family Practice 03/08/16 Pamela Blanco NP [facility] [address] [place], [place] [id number] Referring Physician 07/13/16 Pedro Segura MD [facility] [address] [place], [place] [id number] Nephrology 10/03/16 Freddy Craft MD [address] [facility] [address] [place] [address] Assigned Gastroenterology Provider 02/08/20 Abdifatah Van MD [address] [place] [address] Assigned Nephrology Provider 07/13/20 11/07/23 Nicole Carranza NP [address] [facility] [address] [place], [place] [address] Assigned Heart and Vascular Provider 01/09/22 Andressa Ruiz PA-C [address] [place] [address] [facility] [address] [place], [place] [address] Physician Personnel Associate Endocrinology, Diabetes, and Metabolism 03/01/22 Ashlyn Storm, RN [facility] [address] [place] [address] Registered Nurse 03/03/22 09/15/22 Rubén Gunter [facility] [address] [place] [address] Assigned MTM Pharmacist 02/27/22 Andressa Ruiz PA-C 420 [facility] [address] [place], [place] [address] Assigned Endocrinology Provider 03/13/22 09/07/23 Suzan Harry MD [address] [place], [place] [address] Nephrology 06/30/23 Yasmeen Powers MD [address] [place], [place] [address] Nephrology 10/24/23 Yasmeen Powers MD [address] [place], [place] [address] Assigned Nephrology Provider 11/08/23 documented as of this encounter
--- OUTSIDE RECORDS SUMMARY | 2023-12-15 10:14 | XMS_ITS ---
Author Organization [facility] Address [address] [place] [address] Care Team Providers Care Strategy Lead Name Role Phone Unavailable Unavailable Unavailable Surgery Details Not on file Complications Check Surgery Details section. Procedure Estimated Blood Loss Check Surgery Details section. Procedure Findings Check Surgery Details section. Procedure Specimens Taken Check Surgery Details section.
--- OUTSIDE RECORDS SUMMARY | 2023-12-15 10:14 | XMS_ITS | Encounter Summary ---
Author Organization [facility] Address [address] [place] [address] Care Team Providers Care Shop Manager Name Role Phone Rubén Boyle MD Primary Care Provider Pamela Blanco TIPPLE OILER Unavailable Pamela Blanco TIPPLE OILER Unavailable Pedro Segura MD Unavailable [phone] Freddy Craft MD Unavailable Abdifatah Van MD Unavailable Nicole Carranza TIPPLE OILER Unavailable [phone] Andressa RuizC Unavailable Ashlyn Storm RN Unavailable [phone] Rubén Gunter [facility] Unavailable Andressa RuizC Unavailable Suzan Harry MD Unavailable [phone] Yasmeen Powers MD Unavailable [phone] Yasmeen Powers MD Unavailable [phone] Encounter Details Date Type Department Care Team (Late st Contact Info) Description 04/21/2016 [facility] Nephrology [address] [place] [address] Franco Burgess MD [address] [facility] [address] [place], [place] [address] Social History Tobacco Use Types Packs/Day Years Used Date Smoking Tobacco: Former Cigarettes Q uit: 04/18/1985 Comments:quit years ago Alcohol Use Standard Drinks/Week [...] documented as of this encounter Care Teams Shop Manager Relationship Specialty Start Date End Date Rubén Boyle MD PCP - General Family Practice 03/08/16 Pamela Blanco NP Referring Physician Gastroenterology 03/08/16 07/12/16 Pamela Blanco NP [facility] [address] [place] [address] Referring Physician 07/13/16 Pedro Seguar MD [facility] [address] [place] [address] Nephrology 10/03/16 Freddy Craft MD [address] [facility] [address] [place], [place] [address] Assigned Gastroenterology Provider 02/08/20 Abdifatah Van MD [address] [place] [address] [address] [place], [place] [address] Assigned Nephrology Provider 07/13/20 11/07/23 Nicole Carranza NP 420 [facility] [address] [place], [place] [address] Assigned Heart and Vascular Provider 01/09/22 Andressa Ruzi PA-C 420 [facility] [address] [place] [address] Physician Preform Machine Operator Endocrinology, Diabetes, and Metabolism 03/01/22 Ashlyn Storm RN [facility] [address] [place], [place] [address] Registered Nurse 03/03/22 09/15/22 Rubén Gunter [facility] [address] [place] [address] Assigned MTM Pharmacist 02/27/22 09/07/23 Andressa Ruiz PA-C [address] [address] Assigned Endocrinology Provider 03/13/22 09/07/23 Suzan Harry MD [address] [place], [place] [address] Nephrology 06/30/23 Yasmeen Powers MD [address] [place] [address] Nephrology 10/24/23 Yasmeen Powers MD [address] [place], [place] [address] Assigned Nephrology Provider 11/08/23 documented as of this encounter
--- OUTSIDE RECORDS SUMMARY | 2023-12-15 10:14 | XMS_ITS | Referral Summary ---
Author Organization [facility] Address [address] [place] [address] Care Team Providers Care Sales Development Coordinator Name Role Phone Elsewhere, Pcp Primary Care Provider Unavailabl e Source Comments Patient records contain information from all sites at [facility]. For routine questions regarding patient records, call [phone] during business hours, M-F 8:00 AM - 5:00 PM Central Time. Record requests for emergency care only can be directed to [phone] at any time.[facility] Allergies Active Allergy Reactions Criticality Noted Date [...] Gastroesophageal Reflux Disease Without Esophagi tis 01/26/2016 [facility] Use Of Insulin Active 12/29/2015 Hyperlipidemia 05/09/2015 [...] Mass Index - - Plan of Treatment Not on file Procedures Procedure Name Priority Date/Time Associated Diagnosis [...] CDT 12/24/2022 1:45 PM CDT Mary Romero APRN C.N.P. LAB BLOOD A DD-ON [facility] [address] [place] [address], [facility] NPRG [place] [address] [address] [place] [address] * (ABNORMAL) Hemoglobin A1c (12/14/2022 7:57 AM CDT) Hemoglobin A1c, B 6.2(H) 4.2 - 5.6 % 12/14/2022 8:54 AM CDT NPRG Comment: Hemoglobin A1c values of 5.7-6.4 percent indicate an increased risk for developing diabetes mellitus. In diabetic patients, HbA1c goals should be discussed with healthcare provider. Blood (Blood, Venous) 12/14/2022 7:57 AM CDT 12/14/2022 8:25 AM CDT Mary Romero APRN C.N.P. LAB BLOOD A DD-ON [facility] [address] [address] [place] [address], [facility] NPRG [place] [address] [address] [place] [address] from Last 3 Months or Most Recently Relevant to Health Maintenance Advance Directives For more information, please contact: [phone] Documents on File Type Date Recorded Patient Edger Hand Expl anation Advance Directives 12/06/2022 12:[address]OL[facility] Care Teams Sales Development Coordinator Relationship Specialty Start Date End Date Elsewhere, Pcp PCP - General Internal Medicine 01/06/23
--- OUTSIDE RECORDS SUMMARY | 2023-12-15 10:14 | XMS_ITS ---
Author Organization [facility] Address [address] [place] [address] Care Team Providers Care Photo Specialist Name Role Phone Rubén Boyle MD Primary Care Provider [phone] Pamela Blanco BUSH HOG OPERATOR Unavailable [phone] Pedro Segura MD Unavailable Freddy Craft MD Unavailable Nicole Carranza BUSH HOG OPERATOR Unavailable [phone] Andressa Ruiz-C Unavailable Suzan Harry MD Unavailable Yasmeen Powers MD Unavailable [phone] Yasmeen Powers MD Unavailable [phone] Transplant Episode Liver Recipient [facility] ([place], [place]) - [facility] Organ Received: Liver Transplanted on 07/10/2016 Marked as Active Follow-up on 07/10/2016 Liver CoordinatorMalinda Alves RN Phone: N/A Fax: N/A Email: N/A Pilot Station 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 Cirrhosis Donor Information Organ ABO Source Meets Risk Criteria HLA Match Mismatches Cross Match Liver Transplanted A DBD No A: B: DR: Liver Donor Serology Results Anti-HBcAb HBC Total: Negative [...] Care Team Name Role Phone Fax Email Malinda Alves RN Liver Coordinator N/A N/A N/A Freddy Dumont MD Research Project Coordinator [phone] N/A Pamela Blanco NP Referring Physician [phone] N/A Aime Vu MD Transplant Surgeon [phone] [email or web address] Post-Transplant Pre-Transplant Admitted: 07/02/2016 Referred: 03/08/2016 Transplanted: 07/10/2016 Evaluation began: 6 Discharged: 08/02/2016 Committee: 07/06/2016 Center waitlisted: 7 Dialysis History Dialysis History Start End Type Comments Center 05/05/2016
--- OUTSIDE RECORDS SUMMARY | 2023-12-15 10:14 | XMS_ITS | Encounter Summary ---
Author Organization [facility] Address [address] [place] [address] Care Team Providers Care Siebel Consultant Name Role Phone Rubén Boyle MD Primary Care Provider Pamela Blanco COUNTY COMMISSIONER Unavailable Pamela Blanco COUNTY COMMISSIONER Unavailable [phone] Pedro Segura MD Unavailable Freddy Craft MD Unavailable Abdifatah Van MD Unavailable Nicole Carranza COUNTY COMMISSIONER Unavailable [phone] Andressa RuizC Unavailable Ashlyn Storm RN Unavailable Rubén Gunter [facility] Unavailable Andressa RuizC Unavailable Suzan Harry MD Unavailable [phone] Yasmeen Powers MD Unavailable Yasmeen Powers MD Unavailable Encounter Details Date Type Department Care Team (Late st Contact Info) Description 06/09/2016 MyC Medical Advice Initial Department Lilliam Collier [...] documented as of this encounter Care Teams Siebel Consultant Relationship Specialty Start Date End Date Rubén Boyle MD PCP - General Family Practice 03/08/16 Pamela Blanco NP Referring Physician Gastroenterology 03/08/16 07/12/16 Pamela Blanco NP [facility] [address] [place] [address] Referring Physician 07/13/16 Pedro Segura MD [facility] [address] [place] [address] Nephrology 10/03/16 Freddy Craft MD [address] [facility] [address] [place] [address] Assigned Gastroenterology Provider 02/08/20 Abdifatah Van MD [address] [place] [address] Assigned Nephrology Provider 07/13/20 11/07/23 Nicole Carranza NP 420 [facility] 508 [place], [place] 5[address] Assigned Heart and Vascular Provider 01/09/22 Andressa Ruiz PA-C 420 [facility] 803 [place], [place] 88[address] Physician Superintendent Pier Endocrinology, Diabetes, and Metabolism 03/01/22 Ashlyn Strom, RN [facility] 711 [place], [place] 961864 Registered Nurse 03/03/22 09/15/22 Rubén Gunter [facility] [address] [place] [address] 908695 Assigned MTM Pharmacist 02/27/22 09/07/23 Andressa Ruiz PA-C 420 [facility] 803 [place], [place] [address]675 Assigned Endocrinology Provider 03/13/22 09/07/23 Suzan Harry MD 420 [place], [place] 9[address]15 Nephrology 06/30/23 Yasmeen Powers MD 500 [place], [place] [address]25 Nephrology 10/24/23 Yasmeen Powers MD 500 [place], [place] 815745 Assigned Nephrology Provider 11/08/23 documented as of this encounter
--- OUTSIDE RECORDS SUMMARY | 2023-12-15 10:14 | XMS_ITS | Encounter Summary ---
Author Organization [facility] Address [address] [place] [address] Care Team Providers Care Vibrating Screed Operator Name Role Phone Rubén Boyle MD Primary Care Provider [phone] Pamela Blanco PLASTICS PLATER Unavailable Pedro Segura MD Unavailable Freddy Craft MD Unavailable [phone] Abdifatah Van MD Unavailable Nicole Carranza PLASTICS PLATER Unavailable [phone] Andressa Ruiz-C Unavailable Ashlyn Storm RN Unavailable Rubén Gunter [facility] Unavailable Andressa Ruiz-C Unavailable [phone] Suzan Harry MD Unavailable [phone] Yasmeen Powers MD Unavailable Yasmeen Powers MD Unavailable [phone] Encounter Details Date Type Department Care Team (Late st Contact Info) Description 08/25/2016 External Order Results [facility] [address] [place] [address] Social History Tobacco Use Types [...] Associated Diagnosis Comments EXTERNAL LAB RESULTS Routine 08/20/2016 8:50 AM CDT documented in this encounter Results * (ABNORMAL) TXP External Lab Result (08/20/2016 8:50 AM CDT) Sodium (External) 138 135 - 145 mmol/L LABDE SCAN Potassium (External) 5.4(H) 3.5 - 5.0 mmol/L LABDE SCAN Chloride (External) 103 99 - 110 mmol/L LABDE SCAN CO2 (External) 25 21 - 31 mmol/L LABDE SCAN Anion Gap (External) 10 5 - 18 LABDE SCAN Glucose (External) 107(H) 65 - 100 mg/dL LABDE SCAN Calcium (External) 9.1 8.5 - 10.5 mg/dL LABDE SCAN Urea Nitrogen (External) 29(H) 8 - 26 mg/dL LABDE SCAN Creatinine (External) 2.40(H) 0.72 - 1.25 mg/dL LABDE SCAN BUN/Creatinine Ratio (External) 12 10 - 20 LABDE SCAN GFR Estimated (if ) (External) 33(L) >60 ml/min/1. 73 m2 LABDE SCAN GFR Estimated (External) 27(L) >60 ml/min/1. 73 m2 LABDE SCAN Albumin (External) 3.0(L) 3.2 - 4.6 g/dL LABDE SCAN Protein Total (External) 5.3(L) 6.0 - 8.0 g/dL LABDE SCAN Bilirubin [...] - 2.6 mg/dL LABDE SCAN Phosphorus (External) 6.8(H) 2.3 - 4.7 mg/dL LABDE SCAN WBC Count (External) 3.5(L) 4.5 - 11.0 thou/cu mm LABDE SCAN RBC Count (External) 2.82(L) 4.30 - 5.90 mil/cu mm LABDE SCAN Hemoglobin (External) 8.6(L) 13.5 - 17.5 g/dL LABDE SCAN Hematocrit (External) 26.6(L) 37.0 - 53.0 % LABDE SCAN MCV (External) 91 80 - 100 pg LABDE SCAN MCH (External) 30.5 28.0 - 34.0 pg LABDE SCAN MCHC (External) 33.6 32.0 - 36.0 g/dL LABDE SCAN RDW (External) 15.7(H) 11.5 - 15.5 % LABDE SCAN Platelet Count (External) 274 140 - 440 thou/cu mm LABDE SCAN MPV (External) 9.3 6.5 - 11.0 fL LABDE SCAN Tacrolimus(FK-50 6) (External) 13.7 12 - 15 ng/mL LABDE SCAN Tacrolimus Last Dose (External) 08/19/2016 at 8:00 PM LABDE SCAN 08/20/2016 8:50 AM CDT Narrative SAMANTHA PFT - 08/25/2016 9:44 AM CDT Verified by Cruzito Marlow on 08/25/2016. Patient Reported LABORATORY AMNAKayli PFTameka LABDE SCAN documented in this encounter Visit Diagnoses Not on filedocumented in this encounter Additional Health Concerns Infection Onset Date Last Indicated Resolved Time 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/16 urine, 07/10/16 rectal swab 06/21/2016 06/21/2016 documented as of this encounter Care Teams Vibrating Screed Operator Relationship Specialty Start Date End Date Rubén Boyle MD PCP - General Family Practice 03/08/16 Pamela Blanco PLASTICS PLATER [facility] [address] [place] [address] Referring Physician 07/13/16 Pedro Segura MD [facility] [address] [place] [address] Nephrology 10/03/16 Freddy Craft MD 516 [facility] 2A [place], [place] 28264[address] Assigned Gastroenterology Provider 02/08/20 Abdifatah Van MD 717 [facility] [address] [place], [place] [address]184 Assigned Nephrology Provider 07/13/20 11/07/23 Nicole Carranza NP 420 [facility] 508 [place], [place] 45[address] Assigned Heart and Vascular Provider 01/09/22 Andressa Ruiz PA-C 420 [facility] 803 [place], [place] [address] Physician Steamfitter Endocrinology, Diabetes, and Metabolism 03/01/22 Ashlyn Storm, RN [facility] 711 [place], [place] [address] Registered Nurse 03/03/22 09/15/22 Rubén Gunter [facility] 909 [place], [place] 7[address] Assigned MTM Pharmacist 02/27/22 Andressa Ruiz PA-C 420 [facility] 803 [place] [address] Assigned Endocrinology Provider 03/13/22 09/07/23 Suzan Harry MD [address] [place] [address] Nephrology 06/30/23 Yasmeen Powers MD 500 [place], [place] 327785 Nephrology 10/24/23 Yasmeen Powers MD 500 [place], [place] 832525 Assigned Nephrology Provider 11/08/23 documented as of this encounter
--- OUTSIDE RECORDS SUMMARY | 2023-12-15 10:14 | XMS_ITS | Encounter Summary ---
Author Organization [facility] Address [address] [place] [address] Care Team Providers Care Neuropsychiatric Aide Name Role Phone Rubén Boyle MD Primary Care Provider [phone] Pamela Blanco WARP KNITTER Unavailable Pedro Segura MD Unavailable Freddy Craft MD Unavailable Abdifatah Van MD Unavailable Nicole Carranza WARP KNITTER Unavailable [phone] Andressa Ruiz-C Unavailable [phone] Ashlyn Storm RN Unavailable Rubén Gunter [facility] Unavailable Andressa Ruiz-C Unavailable [phone] Suzan Harry MD Unavailable [phone] Yasmeen Powers MD Unavailable [phone] Yasmeen Powers MD Unavailable [phone] Encounter Details Date Type Department Care Team (Late st Contact Info) Description 08/17/2016 External Order Results [facility] 9[address] [place] [address] Social History Tobacco Use Types [...] Associated Diagnosis Comments EXTERNAL LAB RESULTS Routine 08/16/2016 8:39 AM CDT documented in this encounter Results * (ABNORMAL) TXP External Lab Result (08/16/2016 8:39 AM CDT) Sodium (External) 140 135 - 145 mmol/L LABDE SCAN Potassium (External) 4.4 3.5 - 5.0 mmol/L LABDE SCAN Chloride (External) 104 98 - 110 mmol/L LABDE SCAN CO2 (External) 27 21 - 31 mmol/L LABDE SCAN Anion Gap (External) 9 5 - 18 LABDE SCAN Glucose (External) 149(H) 85 - 100 mg/dL LABDE SCAN Calcium (External) 8.4(L) 8.5 - 10.5 mg/dL LABDE SCAN Urea Nitrogen (External) 18 8 - 25 mg/dL LABDE SCAN Creatinine (External) 1.53(H) 0.72 - 1.25 mg/dL LABDE SCAN BUN/Creatinine Ratio (External) 12 10 - 20 LABDE SCAN GFR Estimated (if ) (External) 56(L) >60 ml/min/1. 73 m2 LABDE SCAN GFR Estimated (External) 48(L) >60 ml/min/1. 73 m2 LABDE SCAN Albumin (External) 2.9(L) 3.2 [...] - 2.6 mg/dL LABDE SCAN Phosphorus (External) 4.6 2.3 - 4.7 mg/dL LABDE SCAN WBC Count (External) 3.7(L) 4.5 - 11.0 thou/cu mm LABDE SCAN RBC Count (External) 2.99(L) 4.30 - 5.90 mil/cu mm LABDE SCAN Hemoglobin (External) 8.7 13.5 - 17.5 g/dL LABDE SCAN Hematocrit (External) 26.8(L) 37.0 - 53.0 % LABDE SCAN MCV (External) 90 80 - 100 fL LABDE SCAN MCH (External) 29.1 26.0 - 34.0 pg LABDE SCAN MCHC (External) 32.5 32.0 - 36.0 g/dL LABDE SCAN RDW (External) 18.1(H) 11.5 - 15.5 % LABDE SCAN Platelet Count (External) 285 140 - 440 thou/cu mm LABDE SCAN MPV (External) 8.9 8.5 - 11.0 fL LABDE SCAN Tacrolimus(FK-50 6) (External) 10.6 10 - 12 ng/mL LABDE SCAN Tacrolimus Last Dose (External) 08/15/2016 at 7:30 PM LABDE SCAN 08/16/2016 8:39 AM CDT Narrative SAMANTHA PFT - 08/18/2016 4:25 PM CDT Verified by Myrna Monreal on 08/17/2016. Verified by Miriam Blount on 08/18/2016. Verified by Cruzito Marlow on 08/18/2016. 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, 07/10/16 rectal swab 06/21/2016 06/21/2016 documented as of this encounter Care Teams Neuropsychiatric Aide Relationship Specialty Start Date End Date Rubén Boyle MD PCP - General Family Practice 03/08/16 Pamela Blanco WARP KNITTER [facility] [address] [place] [address] Referring Physician 07/13/16 Pedro Segura MD [facility] [address] [place], [place] 8[address]307 Nephrology 10/03/16 Freddy Craft MD [address] [facility] [place], [place] 5390[address] Assigned Gastroenterology Provider 02/08/20 Abdifatah Van MD [address] [facility] [address] [place], [place] [address] Assigned Nephrology Provider 07/13/20 11/07/23 Nicole Carranza NP 420 [facility] 508 [place], [place] 424945 Assigned Heart and Vascular Provider 01/09/22 Andressa Ruiz PA-C 420 [facility] 803 [place], [place] 780785 Physician Financial Services Sales Representative Endocrinology, Diabetes, and Metabolism 03/01/22 Ashlyn Storm, RN [facility] 711 [place], [place] 6485[address] Registered Nurse 03/03/22 09/15/22 Rubén Gunter [facility] 909 [place] [address] Assigned MTM Pharmacist 02/27/22 Andressa Ruiz PA-C 420 [facility] 803 [place] [address] Assigned Endocrinology Provider 03/13/22 09/07/23 Suzan Harry MD 420 [place] [address] Nephrology 06/30/23 Yasmeen Powers MD 500 [place] [address] Nephrology 10/24/23 Yasmeen Powers MD [address] [place] [address] Assigned Nephrology Provider 11/08/23 documented as of this encounter
--- OUTSIDE RECORDS SUMMARY | 2023-12-15 10:14 | XMS_ITS | Encounter Summary ---
Author Organization [facility] Address [address] [place] [address] Care Team Providers Care Fish Hatchery Worker Name Role Phone Rubén Boyle MD Primary Care Provider [phone] Pamela Blanco ARABIC LINGUIST Unavailable [phone] Pedro Segura MD Unavailable Freddy Craft MD Unavailable Abdifatah Van MD Unavailable Nicole Carranza ARABIC LINGUIST Unavailable [phone] Andressa Ruiz-C Unavailable Ashlyn Storm RN Unavailable [phone] Rubén Gunter [facility] Unavailable Andressa Ruiz-C Unavailable [phone] Suzan Harry MD Unavailable [phone] Yasmeen Powers MD Unavailable [phone] Yasmeen Powers MD Unavailable [phone] Encounter Details Date Type Department Care Team (Late st Contact Info) Description 08/24/2016 External Order Results [facility] 9[address] [place] [address] Social History Tobacco Use [...] Diagnosis Comments EXTERNAL LAB RESULTS Routine 08/23/2016 2:45 PM CDT documented in this encounter Results * (ABNORMAL) TXP External Lab Result (08/23/2016 2:45 PM CDT) WBC Count (External) 3.2(L) 4.5 - 11.0 thou/cu mm LABDE SCAN RBC Count (External) 2.99(L) 4.30 - 5.90 mil/cu mm LABDE SCAN Hemoglobin (External) 8.6(L) 13.5 - 17.5 g/dL LABDE SCAN Hematocrit (External) 26.9(L) 37.0 - 53.0 % LABDE SCAN MCV (External) 90 80 - 100 fL LABDE SCAN MCH (External) 28.8 26.0 - 34.0 pg LABDE SCAN MCHC (External) 32.0 32.0 - 36.0 % LABDE SCAN RDW (External) 15.7(H) 11.5 - 15.5 % LABDE SCAN Platelet Count (External) 264 140 - 440 thou/cu mm LABDE SCAN MPV (External) 9.1 6.5 - 11.0 fL LABDE SCAN 08/23/2016 2:45 PM CDT Narrative SAMANTHA PFT - 08/24/2016 9:06 AM CDT Verified by Cruzito Marlow on 08/24/2016. 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, 07/10/16 rectal swab 06/21/2016 06/21/2016 documented as of this encounter Care Teams Fish Hatchery Worker Relationship Specialty Start Date End Date Rubén Boyle MD PCP - General Family Practice 03/08/16 Pamela Blanco NP [facility] [address] [place] [address] Referring Physician 07/13/16 Pedro Segura MD [facility] [address] [place] [address] Nephrology 10/03/16 Freddy Craft MD 516 [facility] [address] [place], [place] [address] Assigned Gastroenterology Provider 02/08/20 Abdifatah Van MD 7[address] [facility] [address] [place], [place] [address] Assigned Nephrology Provider 07/13/20 11/07/23 Nicole Carranza NP 420 [facility] 508 [place], [place] [address] Assigned Heart and Vascular Provider 01/09/22 Andressa Ruiz PA-C 420 [facility] 803 [place], [place] [address] Physician Invoicing Machine Operator Endocrinology, Diabetes, and Metabolism 03/01/22 Ashlyn Storm RN [facility] 711 [place], [place] [address] Registered Nurse 03/03/22 09/15/22 Rubén Gunter [facility] 909 [place] [address] Assigned MTM Pharmacist 02/27/22 Andressa Ruiz PA-C 420 [facility] 803 [place] [address] Assigned Endocrinology Provider 03/13/22 09/07/23 Suzan Harry MD [address] [place] [address] Nephrology 06/30/23 Yasmeen Powers MD 500 [place] [address] Nephrology 10/24/23 Yasmeen Powers MD 500 [place] [address] Assigned Nephrology Provider 11/08/23 documented as of this encounter
--- OUTSIDE RECORDS SUMMARY | 2023-12-15 10:15 | XMS_ITS | Clinical Summary ---
Author Organization [facility] Address [address] [place] [address] Care Team Providers Care Farm Field Manager Name Role Phone Rubén Boyle MD Primary Care Provider Source Comments You are receiving this document as you are listed as the primary care provider,follow-up provider, or the patient has been referred to you for consultation.This is in compliance with the Medicare and[facility] Hospital[facility] EHR Incentive Program,which states Providers who transition their patient to another setting of careor provider of care or refers their patient to another provider of care shouldprovide summary care record for each transition of care or referral. Citizen.[facility] Allergies No known active allergies Medications Medication Sig Dispensed Refills Start Date End Date Status citalopram (CELEXA) 20 MG tablet Take 20 mg by mouth daily (every 24 hours). 09/29/2015 Active glucagon, human recombinant, (GLUCAGON,HUMAN RECOMBINANT) 1 MG Inject 1 mg into the muscle once. 09/29/2015 Active omeprazole (PRILOSEC) 20 MG capsule Take 20 mg by mouth daily (every 24 hours). 09/29/2015 Active sildenafil (VIAGRA) 100 MG tablet Take 100 mg by mouth as needed for Erectile Dysfunction. 09/29/2015 Active insulin aspart (NOVOLOG) 100 UNIT/ML injection (vial) Inject 145 Units subcutaneously daily. Uses 145 units per day per insulin pump Active lactulose (CEPHULAC) 10 GM/15ML solution Take 10 g by mouth two times a day. Active rifaximin (XIFAXAN) 200 MG tablet Take 550 mg by mouth two times a day. Active traMADol (ULTRAM) 50 MG tablet Take 50 mg by mouth every 6 hours as needed for Pain. Active gabapentin (NEURONTIN) 600 MG tabletIndications: Diabetic Neuropathy Take 0.5 Tabs by mouth daily at bedtime. Indications: Diabetes with Nerve Disease 0 03/19/2016 Active furosemide (LASIX) 40 MG tabletIndications: Edema Take 2 Tabs by mouth daily. Indications: Edema 180 Tab 3 03/19/2016 Active spironolactone (ALDACTONE) 50 MG tabletIndications: Alcoholic cirrhosis of liver with ascites (HRC) Take 2 Tabs by mouth daily. 90 Tab 3 03/20/2016 Active propranolol (INDERAL) 10 MG tablet TAKE 1 TABLET BY MOUTH TWICE DAILY 60 Tab 0 04/20/2016 Active Active Problems Problem Noted Date Diagnosed Date ROSANA (acute kidney injury) 02/04/2016 Metabolic acidosis 02/04/2016 Hyperkalemia 02/04/2016 Hyponatremia 02/04/2016 Alcoholic cirrhosis 02/03/2016 Type 2 diabetes mellitus without complication HTN (hypertension) 02/03/2016 Chronic back pain 02/03/2016 Gastroesophageal reflux disease without esophagi tis 02/03/2016 Anemia, macrocytic 02/03/2016 Thrombocytopenia 02/03/2016 Hepatic encephalopathy 02/03/2016 Immunizations Name Administration Dates Next Due Flu Vac (6-35 mo) 01/24/2016 PPSV23 (Pneumovax) 02/10/2016 Social History Tobacco Use Types Packs/Day Years Used Date Smoking Tobacco: Never Alcohol Use Standard Drinks/Week Comments No 0 (1 standard drink = 0.6 oz pur e alcohol) Sex and Gender Information Value Date Recorded Sex Assigned at Not on file Gender Identity Not on file Sexual Orientation Not on file Last Filed Vital Signs Vital Sign Reading Time Taken Comments Blood Pressure 112/66 03/25/2016 10:51 AM HANDLE AND VENT MACHINE OPERATOR Pulse 70 03/25/2016 10:51 AM HANDLE AND VENT MACHINE OPERATOR Temperature 36.7 ??C (98.1 ??F) 03/19/2016 3:05 PM CS T Respiratory Rate 16 03/25/2016 10:5 1 AM HANDLE AND VENT MACHINE OPERATOR Oxygen Saturation 99% 03/25/2016 10: 51 AM HANDLE AND VENT MACHINE OPERATOR Inhaled Oxygen Concentration - - Weight 121.4 kg (267 lb 11.2 oz) 2015 10:50 AM HANDLE AND VENT MACHINE OPERATOR Height 177.8 cm (5' 10) 03/02/2016 1:12 PM HANDLE AND VENT MACHINE OPERATOR Body Mass Index 38.41 03/02/2016 1:12 PM HANDLE AND VENT MACHINE OPERATOR Plan of Treatment Health Maintenance Due Date Last Done Comments Colon Cancer Screening Plan Due 1950 Diabetes: Eye Exam 1950 Diabetes: Foot Exam 1950 Diabetes: HGBA1C 1950 Diabetes: Lipid Panel 1950 Diabetes: Urine Microalbumin 1950 Medicare Annual Wellness Visit 1950 Diabetes: Creatinine 03/19/2017 03/19/2016, 03/13/2016, 03/02/2016, Additional history exists Zoster/Shingles (2 of 2) 09/26/2017 08/01/2017 DTaP/Tdap/Td (2 - Tdap) 07/31/2020 07/31/2010 Pneumococcal 65+ Yrs (3 - PPSV23 or PCV20) 02/09/2021 01/10/2018, 02/10/2016 COVID-19 Vaccine ( - season) 2022 Influenza (#1) 2023 01/10/2018, 11/17, 01/24/2016, Additional history exists Hep C Screening (Preventive Services) Completed 02/06/2016 HepA Aged Out No longer eligi ble based on patient's age to complete this topic HepB Aged Out No longer eligi ble based on patient's age to complete this topic Hib Aged Out No longer eligi ble based on patient's age to complete this topic IPV (Polio) Aged Out No longer eligi ble based on patient's age to complete this topic MCV4 Aged Out No longer eligi ble based on patient's age to complete this topic Procedures Procedure Name Priority Date/Time Associated Diagnosis Comments CREATININE / GFR STAT 03/19/2016 11:5 8 AM HANDLE AND VENT MACHINE OPERATOR Chronic kidney disease, stage III (moderate) (HRC) HEPATITIS C ANTIBODY, WITH REFLEX Specified Time 02/06/2016 5:44 AM CDT from Last 3 Months or Most Recently Relevant to Health Maintenance Results * (ABNORMAL) Creatinine - today (03/19/2016 11:58 AM HANDLE AND VENT MACHINE OPERATOR) Creatinine Serum 1.43(H) 0.73 - 1.18 mg/dL PN SOFT Est GFR Am >60 >60 mL/min/1.7 3m2 PN SOFT Est GFR Non-Afr Am 52(L) >60 mL/min/1.7 3m2 PN SOFT Comment: Normal>60, moderate decrease 30 - 59, severe decrease 15 - 29, renal failure <15 mL/min/1.73 m2 NOTE: ??Choose the eGFR result above appropriate for the race of the patient. 03/19/2016 11:5 8 AM HANDLE AND VENT MACHINE OPERATOR 03/19/2016 12:01 PM HANDLE AND VENT MACHINE OPERATOR Narrative PN SOFT - 03/19/2016 12:25 PM HANDLE AND VENT MACHINE OPERATOR Performed at [place] [address] CLIA number [id number] Pedro Bundy MD LAB_1 Performing Organization Address [facility] de Phone Number Expert TA [address] [place] [address] * Hepatitis C Virus Anette In-House (02/06/2016 5:44 AM CDT) Hepatitis C Antibody Nonreactive Nonreactive PN SOFT 02/06/2016 5:44 AM CDT 02/06/2016 6:13 AM CDT Narrative PN SOFT - 02/06/2016 7:03 AM CDT Performed at [address] [address] CLIA number [id number] Prateek Langley MD LAB_1 Performing Organization Address [facility] de Phone Number PN SOFT [address] [place] [address] from Last 3 Months or Most Recently Relevant to Health Maintenance Advance Directives Documents on File Type Date Recorded Patient Equipment Specialist Expl anation Advance Directive/Living Will/Durable Power of Attny on file/POLST PN 02/04/2016 12:52 PM * Full Code (Latest Code Status on File) Date Activated Date Inactivated Comments 02/03/2016 5:53 PM 02/10/2016 6:17 PM Care Teams Farm Field Manager Relationship Specialty Start Date End Date Rubén Boyle MD [address] [place] [address] PCP - General 09/29/15
--- OUTSIDE RECORDS SUMMARY | 2023-12-15 10:15 | XMS_ITS | Clinical Summary ---
Author Organization [employer] [facility] [employer] Address [place], [place] [address] Care Team Providers Care Plastics Bench Mechanic Name Role Phone Nikole Gibbs Trisha RN Unavailable [phone] Rubén Boyle MD Primary Care Provider + Allergies Active Allergy Reactions Criticality Noted Date Comments Phytonadione (Vitamin K1) Tremors 01/17/2017 Medications Medication Sig Dispensed Refills Start Date End Date Status glucagon (GLUCAGON EMERGENCY) 1 mg injectionIndicatio ns:Type 2 diabetes, HbA1C goal < 8% (HC) 1 mg one time if needed for Blood Gluc < Specify (to use for hypoglycemia emergency) for up to 1 dose. 1 Each 2 12/03/2013 Active MISCELLANEOUS MEDICAL SUPPLY (GRADUATED COMPRESSION STOCKINGS)Indicati ons:Bilateral lower extremity edema For personal use. Length: thigh Strength: 20-30 mmHg 2 Packet 03/18/2016 Active aspirin (ECOTRIN) 81 mg enteric coated tabletIndications: S/P liver transplant (HC) Take 1 tablet by mouth once daily with a meal. 0 08/11/2016 Active azaTHIOprine (IMURAN) 50 mg tablet Take 150 mg by mouth once daily. 04/08/2017 Active TAB-A-JOLENE tabletIndications: S/P liver transplant (HC) TAKE ONE TABLET BY MOUTH ONCE DAILY 90 tablet 07/05/2019 Active atorvastatin (LIPITOR) 20 mg tablet Take 1 Tablet by mouth at bedtime. 08/11/2021 Active ferrous sulfate 325 mg delayed release tablet Take 325 mg by mouth once daily. 03/02/2022 Active cholecalciferol, Vitamin D3, (Vitamin D-3) 2,000 unit tablet Take 2,000 units by mouth once daily. Active furosemide (LASIX) 20 mg tablet Take 20 mg by mouth once daily if needed (edema). Active gabapentin (NEURONTIN) 300 mg capsule Take 300 mg by mouth two times daily. Active tacrolimus (Prograf) 0.5 mg capsule Take 0.5 mg by mouth every 12 hours. Active glipiZIDE (GLUCOTROL) 5 mg tablet Take 5 mg by mouth once daily before a meal. Active omeprazole (PRILOSEC) 20 mg Delayed-Release capsuleIndications :Gastroesophageal reflux disease without esophagitis Take 2 Capsules (40 mg) by mouth two times daily before meals. 90 Capsule 09/23/2023 Active sodium bicarbonate 650 mg tabletIndications: Kidney transplant recipient Take 2 Tablets (1,300 mg) by mouth two times daily. 60 Tablet 09/23/2023 Active citalopram (CELEXA) 20 mg tabletIndications: Moderate single current episode of major depressive disorder (HC) Take 1 Tablet (20 mg) by mouth once daily. 30 Tablet 09/24/2023 Active magnesium oxide (MAG-OX 400) 400 mg tabletIndications: Hypomagnesemia Take 1 Tablet (400 mg) by mouth once daily. 30 Tablet 09/23/2023 Active Active Problems Problem Noted Date Diagnosed Date Diarrhea 09/21/2023 Dehydration 09/21/2023 Weakness 09/21/2023 Acute kidney injury superimposed on chronic kidn ey disease 06/25/2022 Gastritis 06/25/2022 Abdominal pain 06/25/2022 Chronic pain 06/25/2022 Chest pain 06/21/2022 Elevated troponin 06/21/2022 Chronic diastolic heart failure 06/19/2022 Stage 3 chronic kidney disease 06/19/2022 Normocytic anemia 06/19/2022 GI bleed 06/19/2022 Encephalopathy, hepatic 04/19/2018 Acute on chronic diastolic congestive heart fail ure 04/19/2018 Essential hypertension 11/21/2017 Moderate single current epis ode of major depressive disorder 01/14/2017 Onychomycosis 10/26/2016 Kidney transplant recipient 08/12/2016 Liver transplant recipient 08/12/2016 Diabetic polyneuropathy asso ciated with diabetes mellitus due to underlying condition 02/24/2016 Mitral regurgitation 02/11/2016 Non-rheumatic tricuspid valve insufficiency 01/17 Alcoholic cirrhosis of liver with ascites 2015 GERD (gastroesophageal reflux disease) 6 Erectile dysfunction 01/26/2016 Thrombocytopenia 01/26/2016 Folic acid deficiency 01/22/2016 Macrocytic anemia 01/22/2016 Type 2 diabetes mellitus wit h complication, with long-term current use of insulin 12/29/2015 Status post left hip replacement 05/09/2015 Hyperlipidemia, unspecified 05/09/2015 Issue of repeat prescription 05/08/2015 Overview: Painful Diabetic neuropathy. Uses Fostoria 7.5 mg - roughly 3 per day Controlled substance agreement signed 05/07/2015 Colon polyps 05/10/2013 Resolved Problems Problem Noted Date Diagnosed Date Resolved Date Hepatorenal syndrome 04/29/2016 017 Oliguria 04/28/2016 08/15/2016 Alcoholic cirrhosis 03/17/2016 04/28/19 17 Injury of kidney 02/04/2016 04/28/2016 Encephalopathy, hepatic 02/03/201607/19 Decreased platelet count 02/03/201602/2017 Hepatic encephalopathy 01/26/201608/15 Hyperkalemia 01/26/2016 08/15/2016 Acute renal failure (ARF) 01/22/2016 Issue of repeat prescriptions 11/18/2010 05/08/2015 Overview: Diabetic neuropathy - taking Vicodin ES Major depression, single episode 11/11/2010 01/14/2017 [facility] Care Contract 02/04/2010 012 Overview: This patient, PCP and Care Guide have signed a letter agreeing on a set of goals for diabetes, hypertension and/or CHF. Please look for [facility] Care Goal Contract in Chart Review/ Letters and support this effort. Please direct questions to Care Guide Edilma Recinos Phone number [phone] Type 2 diabetes, HbA1C goal < 8% 02/04/2010 12/29/2015 Diabetic neuropathy 02/04/2010 02/24/20 16 Hypertension 08/05/2009 11/21/2017 Diverticulosis of colon (wit hout mention of hemorrhage) 08/14/2008 05/09/2015 Obesity, unspecified 09/26/2006 016 Osteoarthrosis, unspecified whether generalized or localized, unspecified site 08/01/2006 05/09/2015 Overview: HIPS PABLO Left Other and unspecified hyperlipidemia 08/01/2006 05/09/2015 Polyneuropathy in diabetes(357.2) 08/01/2006 02/04/2010 DIABETES 04/18/1994 02/04/2010 Encounters Date Type Department Care Team Description 10/06/2023 Patient Outreach [facility] Care Management - Care Management Navigation/[facility] [address] [place] [address] Camryn Delgado LSW Care Management Intake (Social work care management intake outreach./) 09/24/2023 10:20 AM CDT - 09/24/2023 5:11 PM CDT Emergency [facility] [address] [place] [address] Justyn Young MD Generalized weakness (Primary Dx) Discharge Disposition: Home Self Care 09/24/2023 Travel 09/21/2023 1:09 PM CDT - 09/23/2023 12:41 PM CDT Hospital Encounter [facility] [address] [place] [address] Giancarlo Presley MD Del Castillo, Isabelle Jennifer Rose Farro, MD Nguyen, Thao Nguyen Le, [place] Kidney transplant recipient (Primary Dx); Long Q-T syndrome; Hypomagnesemia; C. difficile diarrhea; Weakness; Gastroesophageal reflux disease without esophagitis; Chronic pain syndrome; Liver transplant recipient (HC); Moderate single current episode of major depressive disorder (HC) Discharge Disposition: Home Health 09/21/2023 Travel 09/17/2023 Lab Requisition [facility] [phone] Tara Acevedo MD 09/14/2023 Lab Requisition [facility] [phone] Lyndsay Matias MD from Last 3 Months Immunizations Name Administration Dates Next Due AMB Influenza, IIV3 (Age >=3 years)(Flu Clinic Only) 02/03/2013,01/27/2011,02/06/2008 AMB Influenza, IIV4 PF (=>6 mos Flulaval,Fluzone Fluarix)(Flu Clinic Only) 01/09/2014 Amb Influenza, Inact (High-d ose) (Flu Clinic Only) 01/24/2016 Influenza, IIV3 (Age >=3 years) 01/14/20 12,02/04/2010,01/14/2009,2006,02/16/2006 Influenza, IIV4 12/14/2016,01/06/2015 Influenza, IIV4 (=>6mos) MDV 01/24/2016 Influenza, Inactivated IIV3 (Age 65+ Years) Preserv Free 01/10/2018 Pneumococcal conj 13-Valent (Prevnar 13) 01/10/2018 Tdap 07/31/2010 Zoster (Shingrix-RZV, recombinant) 08/01/2017 Family History Medical History Relation Name Comments Diabetes Father Heart Disease Father Diabetes Maternal Grandmother Diabetes Sister Relation Name Status Comments Father Maternal Grandmother Sister Social History Tobacco Use Types Packs/Day Years Used Date Smoking Tobacco: Former Cigarettes 0.5 20 0 08/16/1981 - 08/16/2001 Smokeless Tobacco: Never Tobacco Cessation:Counseling Given: Yes Alcohol Use Standard Drinks/Week Comments No 0 (1 standard drink = 0.6 oz pur e alcohol) last drink 2015 PHQ-2 Answer Date Recorded PHQ-2 TOTAL SCORE 1 03/26/2022 Social Connections Answer Date Recorded Frequency of Communication with Friends and Fami ly 0 09/21/2023 Financial Resource Strain Answer Date R ecorded Difficulty of Paying Living Expenses 3 09/21/2023 Difficulty of Paying Living Expenses Not on file 09/21/2023 Food Insecurity Answer Date Recorded Worried About Running Out of Food in the Last Ye ar 1 09/21/2023 Transportation Needs Answer Date Record ed Lack of Transportation (Medical) 1 09/21/2023 Housing Stability Answer Date Recorded Unable to Pay for Housing in the Last Year 1 09/21/2023 Sex and Gender Information Value Date Recorded Sex Assigned at Not on file Gender Identity Not on file Sexual Orientation Not on file Obstetrics History Last Filed Vital Signs Vital Sign Reading Time Taken Comments Blood Pressure 126/68 09/24/2023 4:31 PM CDT Pulse 75 09/24/2023 4:31 PM CDT Temperature 36.9 ??C (98.4 ??F) 09/24/2023 10:25 AM C DT Respiratory Rate 20 09/24/2023 10:25 AM CDT Oxygen Saturation 99% 09/24/2023 4:31 PM CDT Inhaled Oxygen Concentration - - Weight 92.5 kg (204 lb) 09/24/2023 10:26 AM CDT Height 182.9 cm (6') 09/24/2023 10:26 AM CDT Body Mass Index 27.67 09/24/2023 10:26 AM CDT Plan of Treatment Health Maintenance Due Date Last Done Comments Hepatitis C screening for ag e 18-79 1970 Zoster (shingles) series for age 50+ (2 of 2) 09/26/2017 08/01/2017 Pneumococcal series for age 65+ (2 of 2 - PPSV23 or PCV20) 03/07/2018 01/10/2018 Colonoscopy through age 75 09/20/201809/20, 09/20/2013, 04/07/2009, Additional history exists Medicare Wellness for age 65+ 11/22/2018 11/21/2017 BMI (ht and wt on same day) for age 18+ 04/19/2019 04/19/2018, 01/16/2018, 01/10/2018, Additional history exists Tetanus booster 11/11/2020 11/11/2010 (Comp leted outside of [facility]), 07/31/2010 Depression screening for age 12+ 03/29/2023 03/29/2022, 03/26/2022, 04/19/2018, Additional history exists COVID-19 vaccine series (2022- season) 2023 05/31/2023, 09/17/2021, 01/12/2021, Additional history exists Influenza for age 65+ 12/18/2023 01/10/2018 , 12/14/2016, 01/24/2016, Additional history exists Lipids for age 45-75 03/19/2024 03/19/2019, 03/16/2018, 09/20/2016, Additional history exists Tdap Completed 07/31/2010 AAA screening age 65-74 Completed 06/24/2022, 01/06 Procedures Procedure Name Priority Date/Time Associated Diagnosis Comments URINALYSIS MICROSCOPIC STAT 09/24/2023 3:43 PM CDT UA W/ SEDIMENT EXAM REFLEXED PER CRITERIA STAT 09/24/2023 3:43 PM CDT CBC WITH AUTO DIFFERENTIAL STAT 09/24/2023 11:06 AM CDT MAGNESIUM STAT 09/24/2023 11:06 AM CDT BASIC METABOLIC PANEL STAT 09/24/2023 11:06 AM CDT CBC WITH AUTO DIFFERENTIAL STAT 09/24/2023 11:06 AM CDT GLUCOSE METER Routine 09/23/2023 8:45 AM CDT COMP METABOLIC PANEL Early AM 09/23/2023 6:17 AM CDT MAGNESIUM Early AM 09/23/2023 6:17 AM CDT GLUCOSE METER Routine 09/22/2023 9:18 PM CDT GLUCOSE METER Routine 09/22/2023 5:55 PM CDT EKG 12 LEAD Routine 09/22/2023 12:19 PM CDT GLUCOSE METER Routine 09/22/2023 11:44 AM CDT GLUCOSE METER Routine 09/22/2023 8:42 AM CDT CREATININE Add On 09/22/2023 6:25 AM CDT MAGNESIUM Early AM 09/22/2023 6:25 AM CDT POTASSIUM Early AM 09/22/2023 6:25 AM CDT GLUCOSE METER Routine 09/22/2023 6:08 AM CDT URINALYSIS MICROSCOPIC STAT 09/21/2023 10:38 PM CDT UA W/ SEDIMENT EXAM REFLEXED PER CRITERIA STAT 09/21/2023 10:38 PM CDT TACROLIMUS (UMN) TACR Today 09/21/2023 9:05 PM CDT GLUCOSE METER Routine 09/21/2023 7:57 PM CDT GLUCOSE METER Routine 09/21/2023 6:41 PM CDT MAGNESIUM MIKE 09/21/2023 6:09 PM CDT TROPONIN T (HS) ONE TIME Timed 09/21/2023 6:09 PM CDT TROPONIN T (HS) ONE TIME Timed 09/21/2023 3:47 PM CDT SCAN-CARDIAC STRIP 09/21/2023 2: 08 PM CDT EKG 12 LEAD STAT 09/21/2023 1:55 PM CDT HEMOGLOBIN A1C SCREENING Add On 09/21/2023 1:47 PM CDT TSH Add On 09/21/2023 1:47 PM CDT ETHANOL SERUM OR PLASMA STAT 09/21/2023 1:47 PM CDT MAGNESIUM MIKE 09/21/2023 1:47 PM CDT BASIC METABOLIC PANEL STAT 09/21/2023 1:47 PM CDT LACTATE VENOUS Today 09/21/2023 1:47 PM CDT AMMONIA STAT 09/21/2023 1:47 PM CDT TROPONIN T (HS) ACUTE W/2HR REFLEX STAT 09/21/2023 1:47 PM CDT LIPASE STAT 09/21/2023 1:47 PM CDT HEPATIC FUNCTION PANEL STAT 09/21/2023 1:47 PM CDT PROTIME-INR STAT 09/21/2023 1:47 PM CDT CBC W PLT NO DIFF STAT 09/21/2023 1:4 7 PM CDT TACROLIMUS (UMN) TACR STAT 09/17/2023 9:41 AM CDT TACROLIMUS (UMN) TACR Routine 09/14/2023 8:[address] ABDOMEN PELVIS WO STAT 06/24/2022 2:30 PM WEATHER TEACHER LIPID PANEL Routine 03/19/2019 9:30 AM WEATHER TEACHER COLONOSCOPY SCREENING Routine 09/20/2013 Colon polyps from Last 3 Months or Most Recently Relevant to Health Maintenance Results * URINALYSIS MICROSCOPIC (09/24/2023 3:43 PM CDT) Only the most recent of2 resultswithin the time period is included. RBC 0-2 0-2, None Seen /HPF 09/24/2023 4:09 PM CDT [facility] WBC 3-5 0-2, 3-5, None Seen /HPF 09/24/2023 4:09 PM CDT [facility] BACTERIA Few None Seen, Rare, Few Bacteria/H PF 09/24/2023 4:09 PM CDT [facility] EPITHELIAL CELLS Few None Seen, Few Epi/HPF 09/24/2023 4:09 PM T [facility] Mucus Present 09/24/2023 4:09 PM [facility] Urine URINE SPECIMEN / Unknown Non-Blood / Unknown 09/24/2023 3:43 PM CDT 09/24/2023 3:47 PM CDT Justyn Young MD URINE [facility] [address] [facility] [address] * (ABNORMAL) UA W/ SEDIMENT EXAM REFLEXED PER CRITERIA (09/24/2023 3:43 PM CDT) Only the most recent of2 resultswithin the time period is included. COLOR Yellow Yellow Color 09/24/2023 3:53 PM CDT [facility] CLARITY Clear Clear Clarity 09/24/2023 3:53 PM [facility] SPECIFIC GRAVITY,URINE 1.025 1.010, 1.015, 1.020, 1.025 09/24/2023 3:53 PM [facility] PH,URINE 6.0 6.0, 7.0, 8.0, 5.5, 6.5, 7.5, 8.5 09/24/2023 3:53 PM [facility] UROBILINOGEN,QU ALITATIVE Normal Normal EU/dl 09/24/2023 3:53 PM [facility] PROTEIN, URINE Negative Negative mg/dL 09/24/2023 3:53 PM [facility] GLUCOSE, URINE Negative Negative mg/dL 09/24/2023 3:53 PM [facility] KETONES,URINE 40(A) Negative mg/dL 09/24/2023 3:53 PM [facility] BILIRUBIN,URINE Abnormal(A) Negative 09/24/19 3:53 PM [facility] Comment:A variety of metabol ites and/or medications may result in a positive bilirubin result. Clinical correlation is recommended. OCCULT BLOOD,URINE Negative Negative 09/24/2023 3:53 PM [facility] NITRITE Negative Negative 09/24/2023 3:53 PM [facility] LEUKOCYTE ESTERASE Negative Negative 09/24/2023 3:53 PM [facility] Urine URINE SPECIMEN / Unknown Non-Blood / Unknown 09/24/2023 3:43 PM CDT 09/24/2023 3:47 PM CDT Justyn Young MD URINE [facility] [address] [facility] [place] [address] * (ABNORMAL) CBC WITH AUTO DIFFERENTIAL (09/24/2023 11:06 AM CDT) WHITE BLOOD COUNT 3.8(L) 4.5 - 11.0 thou/cu mm 09/24/2023 11:13 AM [facility] RED BLOOD COUNT 3.33(L) 4.30 - 5.90 mil/cu mm 09/24/2023 11:13 AM [facility] HEMOGLOBIN 11.2(L) 13.5 - 17.5 g/dL 09/24/2023 11:13 AM [facility] HEMATOCRIT 31.4(L) 37.0 - 53.0 % 09/24/2023 11:13 AM [facility] MCV 94 80 - 100 fL 09/24/2023 11:13 AM [facility] MCH 33.6 26.0 - 34.0 pg 09/24/2023 11:13 AM [facility] MCHC 35.7 32.0 - 36.0 g/dL 09/24/2023 11:13 AM [facility] RDW 13.9 11.5 - 15.5 % 09/24/2023 11:13 AM [facility] PLATELET COUNT 195 140 - 440 thou/cu mm 09/24/2023 11:13 AM [facility] MPV 9.6 6.5 - 11.0 fL 09/24/2023 11:13 AM [facility] % NEUT 69.3 % 09/24/2023 11:13 AM [facility] % LYMPH 22.5 % 09/24/2023 11:13 AM [facility] % MONO 6.6 % 09/24/2023 11:13 AM CDT [facility] % EOS 1.3 % 09/24/2023 11:13 AM T [facility] % BASO 0.3 % 09/24/2023 11:13 AM T [facility] ABSOLUTE NEUTROPHILS 2.6 1.7 - 7.0 thou/cu mm 09/24/2023 11:13 AM T [facility] ABSOLUTE LYMPHOCYTES 0.9 0.9 - 2.9 thou/cu mm 09/24/2023 11:13 AM T [facility] ABSOLUTE MONOCYTES 0.3 <0.9 thou/cu mm 09/24/2023 11:13 AM [facility] ABSOLUTE EOSINOPHILS 0.1 <0.5 thou/cu mm 09/24/2023 11:13 AM T [facility] ABSOLUTE BASOPHILS 0.0 <0.3 thou/cu mm 09/24/2023 11:13 AM T [facility] Blood BLOOD SPECIMEN / Unknown Butterfly / Unknown 09/24/2023 11:06 AM CDT 09/24/2023 11:10 AM CDT Justyn Young MD HEMATOLOGY [facility] [address] [place] [address] * (ABNORMAL) MAGNESIUM (09/24/2023 11:06 AM CDT) Only the most recent of5 resultswithin the time period is included. MAGNESIUM 1.5(L) 1.6 - 2.4 mg/dL 09/24/2023 11:30 AM CDT [facility] Blood BLOOD SPECIMEN / Unknown Butterfly / Unknown 09/24/2023 11:06 AM CDT 09/24/2023 11:10 AM CDT Justyn Young MD CHEMISTRY Performing Organization Address City/[facility]/ZIP Co de Phone Number [facility] [address] [place] [address] * (ABNORMAL) BASIC METABOLIC PANEL (09/24/2023 11:06 AM CDT) Only the most recent of2 resultswithin the time period is included. SODIUM 139 136 - 145 mmol/L 09/24/2023 11:30 AM [facility] POTASSIUM 3.6 3.5 - 5.1 mmol/L 09/24/2023 11:30 AM [facility] CHLORIDE 103 98 - 107 mmol/L 09/24/2023 11:30 AM [facility] CO2,TOTAL 22 22 - 29 mmol/L 09/24/2023 11:30 AM [facility] ANION GAP 14 5 - 18 09/24/2023 11:30 AM [facility] GLUCOSE 195(H) 70 - 99 mg/dL 09/24/2023 11:30 AM [facility] CALCIUM 9.1 8.8 - 10.2 mg/dL 09/24/2023 11:30 AM [facility] BUN 12 8 - 23 mg/dL 09/24/2023 11:30 AM [facility] CREATININE 1.21(H) 0.70 - 1.20 mg/dL 09/24/2023 11:30 AM [facility] BUN/CREAT RATIO 10 10 - 20 11:30 AM [facility] eGFR 64(L) >90 mL/min/1.7 3m2 09/24/2023 11:30 AM [facility] Comment:As of 2021, eG FR is calculated by the CKD-EPI creatinine equation without race adjustment. ??eGFR can be influenced by muscle mass, exercise, and diet. ??The reported eGFR is an estimation only and is only applicable if the renal function is stable. Blood BLOOD SPECIMEN / Unknown Butterfly / Unknown 09/24/2023 11:06 AM CDT 09/24/2023 11:10 AM T Justyn Young MD CHEMISTRY [facility] [address] [place] [address] * (ABNORMAL) GLUCOSE METER (09/23/2023 8:45 AM CDT) Only the most recent of8 resultswithin the time period is included. GLUCOSE METER 130(H) 65 - 100 mg/dL 09/23/2023 8:47 AM T [facility] Blood BLOOD SPECIMEN / Unknown 09/23/2023 8:45 AM CDT 09/23/2023 8:47 AM CDT Judith Jones MD CHEMISTRY Performing Organization Address [facility] Co de Phone Number [facility] [address] [place] [address] * (ABNORMAL) COMP METABOLIC PANEL (09/23/2023 6:17 AM CDT) Pathologist [facility] SODIUM 140 136 - 145 mmol/L 09/23/2023 7:36 AM [facility] POTASSIUM 3.9 3.5 - 5.1 mmol/L 09/23/2023 7:36 AM [facility] CHLORIDE 106 98 - 107 mmol/L 09/23/2023 7:36 AM [facility] CO2,TOTAL 23 22 - 29 mmol/L 09/23/2023 7:36 AM [facility] ANION GAP 11 5 - 18 09/23/2023 7:36 AM [facility] GLUCOSE 133(H) 70 - 99 mg/dL 09/23/2023 7:36 AM [facility] CALCIUM 8.7(L) 8.8 - 10.2 mg/dL 09/23/2023 7:36 AM [facility] BUN 14 8 - 23 mg/dL 09/23/2023 7:36 AM [facility] CREATININE 1.13 0.70 - 1.20 mg/dL 09/23/2023 7:36 AM [facility] BUN/CREAT RATIO 12 10 - 20 7:36 AM [facility] eGFR 69(L) >90 mL/min/1.7 3m2 09/23/2023 7:36 AM [facility] Comment:As of 2021, eG FR is calculated by the CKD-EPI creatinine equation without race adjustment. ??eGFR can be influenced by muscle mass, exercise, and diet. ??The reported eGFR is an estimation only and is only applicable if the renal function is stable. ALBUMIN 3.2(L) 4.0 - 4.9 g/dL 09/23/2023 7:36 AM [facility] PROTEIN,TOTAL 5.6(L) 6.0 - 8.0 g/dL 09/23/2023 7:36 AM [facility] BILIRUBIN,TOTAL 0.9 0.0 - 1.2 mg/dL 09/23/2023 7:36 AM [facility] ALK PHOSPHATASE 54 40 - 129 IU/L 09/23/2023 7:36 AM [facility] ALT (SGPT) <5(L) 10 - 50 IU/L 09/23/2023 7:36 AM [facility] AST (SGOT) 13 10 - 50 IU/L 09/23/2023 7:36 AM [facility] Blood BLOOD SPECIMEN / Unknown Butterfly / Unknown 09/23/2023 6:17 AM CDT 09/23/2023 6:36 AM CDT Judith Jones MD CHEMISTRY [facility] [address] [place] [address] * EKG 12 LEAD (09/22/2023 12:19 PM CDT) Only the most recent of2 resultswithin the time period is included. Interpretation Normal sinus rhythm Nonspecific T wave abnormality Prolonged QT Abnormal ECG When compared with ECG of 05-ANDRIA-2024 13:55, Nonspecific T wave abnormality now evident in Lateral leads QT has shortened BEYOND NOW Ventricular Rate 70 BPM BEYOND NOW Atrial Rate 70 BPM BEYOND NOW P-R Interval 158 ms BEYOND NOW QRS Duration 76 ms BEYOND NOW QT 434 ms BEYOND NOW QTc 468 ms BEYOND NOW P [place] 47 degrees BEYOND NOW R [place] 1 degrees BEYOND NOW T [place] 57 degrees BEYOND NOW 09/22/2023 12:1 9 PM CDT 09/22/2023 2:04 PM CDT Judith Jones MD EKG ORD Performing Organization Address City/[facility] Co de Phone Number [facility]YOND NOW [place], [place] * POTASSIUM (09/22/2023 6:25 AM CDT) [facility] POTASSIUM 3.8 3.5 - 5.1 mmol/L 09/22/2023 7:36 AM CDT [facility] Blood BLOOD SPECIMEN / Unknown Venipuncture / Unknown 09/22/2023 6:25 AM CDT 09/22/2023 6:41 AM CDT Judith Jones MD CHEMISTRY Performing Organization Address [facility] Co de Phone Number [facility] [address] [place] [address] * (ABNORMAL) Creatinine FOR ADD ON (09/22/2023 6:25 AM CDT) [facility] eGFR 58(L) >90 mL/min/1.7 3m2 09/22/2023 8:38 AM CDT [facility] Comment:As of 2021, eG FR is calculated by the CKD-EPI creatinine equation without race adjustment. ??eGFR can be influenced by muscle mass, exercise, and diet. ??The reported eGFR is an estimation only and is only applicable if the renal function is stable. CREATININE 1.31(H) 0.70 - 1.20 mg/dL 09/22/2023 8:38 AM CDT [facility] Blood BLOOD SPECIMEN / Unknown Venipuncture / Unknown 09/22/2023 6:25 AM CDT 09/22/2023 6:41 AM CDT Judith Jones MD CHEMISTRY [facility] [address] [place] [address] * TACROLIMUS (09/21/2023 9:05 PM CDT) Only the most recent of3 resultswithin the time period is included. TACROLIMUS 2.1 ng/mL 09/23/2023 11:13 AM CDT [facility] DATE OF LAST DOSE,TACROLIMUS Not given 09/23/2023 11:13 AM CDT [facility] TIME OF LAST DOSE,TACROLIMUS Not given 09/23/2023 11:13 AM CDT [facility] Blood BLOOD SPECIMEN / Unknown Butterfly / Unknown 09/21/2023 9:05 PM CDT 09/21/2023 9:16 PM CDT Narrative [facility] - 09/23/2023 11:13 AM CDT Target blood levels in Heart Transplant recipient: ?o 0-3 months post transplant: ?12-15 ng/ml ?o >3-6 months post transplant: ? 10-15 ng/ml ?o >6-12 months post transplant: ? 8-12 ng/ml ?o >12 months post transplant: ? 5-10 ng/ml Target blood levels in Kidney Transplant recipient: ?o 0-3 months post transplant: ?10-12 ng/ml ?o >3-6 months post transplant: ?8-10 ng/ml ?o >6-12 months post transplant: ? 5-8 ??ng/ml ?o >12 months post transplant: ? 4-6 ??ng/ml Patients may have an individual goal range due to risk of rejection or adverse effects of tacrolimus. Biotin supplements may cause clinically significant interference for this test assay. If interference is suspected, it is strongly recommended that biotin is discontinued for at least one week prior to retesting Analytical method is electrochemiluminescence immunoassay (ECLIA) and the method platform is the Abby Immunoassay analyzer. Judith Jones MD SEND OUTS [facility] [address] [place] [address], [place] * (ABNORMAL) TROPONIN T ONE TIME (09/21/2023 6:09 PM CDT) Only the most recent of2 resultswithin the time period is included. TROPONIN T HS 43(H) 6-15 ng/L ng/L 09/21/2023 6:45 PM CDT [facility] Blood BLOOD SPECIMEN / Unknown Butterfly / Unknown 09/21/2023 6:09 PM CDT 09/21/2023 6:15 PM CDT [facility] - 09/21/2023 6:45 PM CDT hs-cTnT (Elecsys Troponin T Gen 5) concentration (s) above the sex-specific 99th percentile (16 ng/L or greater for males or 11 ng/L or greater for females) are indicative of myocardial injury. If initial hs-cTnT <=100 ng/L at presentation, a 0h/2h ABSOLUTE (ng/L) delta change (rising or falling) of >=10 ng/L suggests a significant change, whereas a 0h/2h delta change <=3 ng/L suggests no significant change. If initial hs-cTnT >100 ng/L at presentation, a 0h/2h/ RELATIVE (percent, %) delta change of 20% is suggested to distinguish patients with acute vs. chronic myocardial injury. There are multiple etiologies that can cause hs-cTnT increases above the 99th percentile (myocardial injury) other than acute myocardial infarction. Clinical context and careful clinical evaluation are critical for diagnosis and risk-stratification. The diagnosis of acute myocardial infarction requires a rising and/or falling pattern in hs-cTnT concentrations with at least one value above the sex-specific 99th percentile PLUS at least one of the following clinical criteria: ischemic symptoms, new or presumed new significant ST-T wave changes or new LBBB, development of pathological Q waves, imaging evidence of new loss of viable myocardium or new regional wall motion abnormality, or identification of intracoronary atherothrombosis or an acute angiographic culprit on coronary angiography. In appropriate low-risk patients with a non-ischemic electrocardiogram without active chest pain with a symptom onset >3-hours without recurrence, a single initial hs-cTnT<6 ng/L identifies patient with a very low risk in emergency department patient population. Giancarlo Presley MD CHEMISTRY [facility] [address] [place] [address] * SCAN-CARDIAC STRIP (09/21/2023 2:08 PM CDT) Scanner OTHER * (ABNORMAL) TROPONIN T (HS) ACUTE W/2HR REFLEX (09/21/2023 1:47 PM CDT) TROPONIN T HS 50(H) 6-15 ng/L ng/L 09/21/2023 2:14 PM CDT [facility] Blood BLOOD SPECIMEN / Unknown Butterfly / Unknown 09/21/2023 1:47 PM CDT 09/21/2023 1:51 PM CDT Narrative [facility] - 09/21/2023 2:14 PM CDT hs-cTnT (Elecsys Troponin T Gen 5) concentration (s) above the sex-specific 99th percentile (16 ng/L or greater for males or 11 ng/L or greater for females) are indicative of myocardial injury. If initial hs-cTnT <=100 ng/L at presentation, a 0h/2h ABSOLUTE (ng/L) delta change (rising or falling) of >=10 ng/L suggests a significant change, whereas a 0h/2h delta change <=3 ng/L suggests no significant change. If initial hs-cTnT >100 ng/L at presentation, a 0h/2h/ RELATIVE (percent, %) delta change of 20% is suggested to distinguish patients with acute vs. chronic myocardial injury. There are multiple etiologies that can cause hs-cTnT increases above the 99th percentile (myocardial injury) other than acute myocardial infarction. Clinical context and careful clinical evaluation are critical for diagnosis and risk-stratification. The diagnosis of acute myocardial infarction requires a rising and/or falling pattern in hs-cTnT concentrations with at least one value above the sex-specific 99th percentile PLUS at least one of the following clinical criteria: ischemic symptoms, new or presumed new significant ST-T wave changes or new LBBB, development of pathological Q waves, imaging evidence of new loss of viable myocardium or new regional wall motion abnormality, or identification of intracoronary atherothrombosis or an acute angiographic culprit on coronary angiography. In appropriate low-risk patients with a non-ischemic electrocardiogram without active chest pain with a symptom onset >3-hours without recurrence, a single initial hs-cTnT<6 ng/L identifies patient with a very low risk in emergency department patient population. Giancarlo Presley MD CHEMISTRY [facility] [address] [place] [address] * Screening hemoglobin A1c FOR ADD ON (09/21/2023 1:47 PM CDT) [facility] Signature HEMOGLOBIN A1C SCREENING 5.7 <=6.4 % 09/22/2023 7:11 AM CDT [facility] Blood BLOOD SPECIMEN / Unknown Butterfly / Unknown 09/21/2023 1:47 PM CDT 09/21/2023 1:51 PM CDT Narrative [facility] - 09/22/2023 7:11 AM CDT ? (<5.7%) ?Normal ? (5.7% to 6.4%) ? Indicates prediabetes ? (>=6.5%) ? Confirms diabetes Falsely low levels may be seen with: Recent Transfusion, Recent Significant Blood Loss, Hemolytic Diseases, or Falsely elevated levels may be seen with: Untreated Anemias, Splenectomy Judith Jones MD CHEMISTRY Performing Organization Address City/[facility]/ZIP Co de Phone Number [facility] [address] [place] [address] * LACTATE VENOUS (09/21/2023 1:47 PM CDT) LACTATE,VENOUS 1.4 0.5 - 2.0 mmol/L 09/21/2023 2:11 PM CDT [facility] Blood BLOOD SPECIMEN / Unknown Butterfly / Unknown 09/21/2023 1:47 PM CDT 09/21/2023 1:51 PM CDT Giancarlo Presley MD CHEMISTRY Performing Organization Address [facility] Co de Phone Number [facility] [address] [place] [address] * TSH FOR ADD ON (09/21/2023 1:47 PM CDT) TSH 2.34 0.27 - 4.20 uIU/mL 09/21/2023 10:06 PM CDT [facility] Blood BLOOD SPECIMEN / Unknown Butterfly / Unknown 09/21/2023 1:47 PM CDT 09/21/2023 1:51 PM CDT Narrative [facility] - 09/21/2023 10:06 PM CDT In Adults, TSH values between 5.00 and 10.00 uIU/ml do not necessarily indicate the presence of Hypothyroidism. Correlation with clinical findings such as presence of goiter and/or Thyroperoxidase (TPO) Antibody may be helpful. For more information please refer to KALPESH 2004; 291: 228-238. Judith Jones MD CHEMISTRY Performing Organization Address City/[facility]/ZIP Co de Phone Number [facility] [address] [place] [address] * (ABNORMAL) CBC W PLT NO DIFF (09/21/2023 1:47 PM CDT) WHITE BLOOD COUNT 7.5 4.5 - 11.0 thou/cu mm 09/21/2023 1:56 PM CDT [facility] RED BLOOD COUNT 3.76(L) 4.30 - 5.90 mil/cu mm 09/21/2023 1:56 PM T [facility] HEMOGLOBIN 12.6(L) 13.5 - 17.5 g/dL 09/21/2023 1:56 PM T [facility] HEMATOCRIT 36.2(L) 37.0 - 53.0 % 09/21/2023 1:56 PM T [facility] MCV 96 80 - 100 fL 09/21/2023 1:56 PM T [facility] MCH 33.5 26.0 - 34.0 pg 09/21/2023 1:56 PM T [facility] MCHC 34.8 32.0 - 36.0 g/dL 09/21/2023 1:56 PM T [facility] RDW 14.3 11.5 - 15.5 % 09/21/2023 1:56 PM T [facility] PLATELET COUNT 211 140 - 440 thou/cu mm 09/21/2023 1:56 PM T [facility] MPV 9.2 6.5 - 11.0 fL 09/21/2023 1:56 PM T [facility] Blood BLOOD SPECIMEN / Unknown Butterfly / Unknown 09/21/2023 1:47 PM CDT 09/21/2023 1:51 PM CDT Giancarlo Presley MD HEMATOLOGY [facility] [address] [place] [address] * ETHANOL SERUM OR PLASMA (09/21/2023 1:47 PM CDT) ETHANOL <0.010 <0.010 g/dL 09/21/2023 4:50 PM CDT [facility] Blood BLOOD SPECIMEN / Unknown Add On / Unknown 09/21/2023 1:47 PM CDT 09/21/2023 4:27 PM CDT Giancarlo Presley MD CHEMISTRY Performing Organization Address [facility]/ZIP Co de Phone Number [facility] [address] [place] [address] * (ABNORMAL) PROTIME-INR (09/21/2023 1:47 PM CDT) INR 1.2 <1.3 09/21/2023 2:57 PM CDT [facility] PROTIME 12.9(H) 10.3 - 12.3 sec 09/21/2023 2:57 PM CDT [facility] Blood BLOOD SPECIMEN / Unknown Butterfly / Unknown 09/21/2023 1:47 PM CDT 09/21/2023 1:51 PM CDT [facility] - 09/21/2023 2:57 PM CDT ?Therapeutic Range 2.0-3.0 for most anticoagulated patients 2.5-3.5 or 4.0 for high risk patients The INR is only used for patients on stable oral anticoagulant therapy. It makes no significant contribution to the diagnosis or treatment of patients whose Protime is prolonged for other reasons. INR results are increased when heparin levels exceed 1.0 U/mL, which corresponds to an aPTT >125 seconds if the patient is on UFH. Giancarlo Presley MD HEMATOLOGY Performing Organization Address City/[facility]/ZIP Co de Phone Number [facility] [address] [phone] * LIPASE (09/21/2023 1:47 PM CDT) LIPASE 25.1 13.0 - 60.0 IU/L 09/21/2023 2:14 PM CDT [facility] Blood BLOOD SPECIMEN / Unknown Butterfly / Unknown 09/21/2023 1:47 PM CDT 09/21/2023 1:51 PM CDT Giancarlo Presley MD CHEMISTRY Performing Organization Address [facility] Co de Phone Number [facility] [address] [place] [address] * AMMONIA (09/21/2023 1:47 PM CDT) Pathologist [facility] AMMONIA 13 11 - 51 umol/L 09/21/2023 2:11 PM CDT [facility] Blood BLOOD SPECIMEN / Unknown Butterfly / Unknown 09/21/2023 1:47 PM CDT 09/21/2023 1:51 PM CDT Narrative [facility] - 09/21/2023 2:11 PM CDT 1. ??Sulfasalazine and its metabolite Sulfapyridine at therapeutic concentrations may lead to falsely low results. 2. ??Temozolomide and its metabolite MTIC may lead to falsely elevated results, and its metabolite AIC may lead to falsely low results. Giancarlo Presley MD CHEMISTRY Performing Organization Address [facility] Co de Phone Number [facility] [address] [place] [address] * (ABNORMAL) HEPATIC FUNCTION PANEL (09/21/2023 1:47 PM CDT) ALBUMIN 3.9(L) 4.0 - 4.9 g/dL 09/21/2023 2:14 PM CDT [facility] PROTEIN,TOTAL 6.8 6.0 - 8.0 g/dL 09/21/2023 2:14 PM CDT [facility] BILIRUBIN,TOTAL 1.5(H) 0.0 - 1.2 mg/dL 09/21/2023 2:14 PM CDT [facility] BILIRUBIN,DIRECT 0.4(H) 0.0 - 0.3 mg/dL 09/21/2023 2:14 PM CDT [facility] BILIRUBIN,INDIRE CT 1.1(H) 0.2 - 0.8 mg/dL 09/21/2023 2:14 PM CDT [facility] ALK PHOSPHATASE 68 40 - 129 IU/L 09/21/2023 2:14 PM CDT [facility] ALT (SGPT) 5(L) 10 - 50 IU/L 09/21/2023 2:14 PM CDT [facility] AST (SGOT) 15 10 - 50 IU/L 09/21/2023 2:14 PM CDT [facility] Blood BLOOD SPECIMEN / Unknown Butterfly / Unknown 09/21/2023 1:47 PM CDT 09/21/2023 1:51 PM CDT Giancarlo Presley MD CHEMISTRY Performing Organization Address City/State/[facility] Co de Phone Number [facility] [address] [place] [address] * CT ABDOMEN PELVIS WO (06/24/2022 2:30 PM WEATHER TEACHER) Anatomical Region Laterality Modality Abdomen, Pelvis, AORTA, LIVER, SPLEEN Computed Tomography 06/24/2022 3:18 PM WEATHER TEACHER Narrative 06/24/2022 3:18 PM WEATHER TEACHER For Patients: ??As a result of the Century Cures Act, medical imaging exams and procedure reports are released immediately into your electronic medical record. ??You may view this report before your referring provider. ??If you have questions, please contact your health care provider. Indication: Left lower quadrant abdominal pain Technique: Volumetric multidetector CT images of the abdomen and pelvis were without the administration of intravenous contrast. Comparison: CT chest, abdomen and pelvis June 17, 2022 Findings: There is bibasilar atelectasis and parenchymal scar. The liver is normal in attenuation without intrahepatic biliary ductal dilatation. There is prior cholecystectomy. There is no significant common biliary ductal dilatation or abrupt cut off. The spleen is normal in attenuation and size. The stomach and duodenum are grossly unremarkable. There is mild pancreatic atrophy. The adrenal glands are unremarkable. There is moderate perinephric stranding and cystic changes of the bilateral kidneys. 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 No evidence of calculi within the proximal collecting systems. 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 Moderate stool is seen throughout the colon with extensive distal colonic diverticulosis. No overt pericolonic inflammatory changes are identified. Decompressed appearance of the central small bowel. The appendix is unremarkable. There is no significant mesenteric, retroperitoneal, or pelvic sidewall lymph nodes. The aorta is not aneurysmal with scattered atherosclerotic calcification. There is a fat containing left inguinal canal. There is no free fluid or free air. There is a small fat containing umbilical hernia. The lumbar vertebral body heights are grossly maintained with anterolisthesis of L4 on L5. There is mild multilevel degenerative disc disease. Impression: Extensive colonic diverticulosis without overt pericolonic inflammatory change. The distal colon is somewhat decompressed, low-grade inflammation is not entirely excluded. Prior cholecystectomy. Chronic appearance of the bilateral kidneys with redemonstration of transplant kidney in the right lower quadrant with mild prominence of the collecting system. No obvious obstructive calculus is identified; however, the bladder and ureterovesicular junctions are obscured by bilateral beam hardening artifact secondary to hip arthroplasties. Please note that all CT scans at this facility use dose modulation, iterative reconstruction, and/or weight-based dosing when appropriate to reduce radiation dose to as low as reasonably achievable. Dictated by Gab Agarwal MD @ 06/24/2022 3:18:29 PM (Electronically Signed) Procedure Note Gab Agarwal MD - 06/24/2022 For Patients: As a result of the Century Cures Act, medical imagingexams and procedure reports are released immediately into your electronicmedical record. You may view this report before your referring provider.If you have questions, please contact your health care provider. Indication: Left lower quadrant abdominal pain Technique: Volumetric multidetector CT images of the abdomen and pelvis were withoutthe administration of intravenous contrast. Comparison: CT chest, abdomen and pelvis June 17, 2022 Findings: There is bibasilar atelectasis and parenchymal scar. The liver is normal in attenuation without intrahepatic biliary ductaldilatation. There is prior cholecystectomy. There is no significant common biliary ductal dilatation or abrupt cutoff. The spleen is normal in attenuation and size. The stomach and duodenum are grossly unremarkable. There is mild pancreatic atrophy. The adrenal glands are unremarkable. There is moderate perinephric stranding and cystic changes of thebilateral kidneys. Evaluation of the ureterovesicular junctions is limitedsecondary to extensive beam hardening artifact from bilateral hiparthroplasties. No evidence of calculi within the proximal collectingsystems. Demonstration of a transplant kidney in the right lower quadrantwith no obvious obstructive calculus. Moderate stool is seen throughout the colon with extensive distal colonicdiverticulosis. No overt pericolonic inflammatory changes are identified.Decompressed appearance of the central small bowel. The appendix is unremarkable. There is no significant mesenteric, retroperitoneal, or pelvic sidewalllymph nodes. The aorta is not aneurysmal with scattered atheroscleroticcalcification. There is a fat containing left inguinal canal. There is no free fluid or free air. There is a small fat containing umbilical hernia. The lumbar vertebral body heights are grossly maintained withanterolisthesis of L4 on L5. There is mild multilevel degenerative discdisease. Impression: Extensive colonic diverticulosis without overt pericolonic inflammatorychange. The distal colon is somewhat decompressed, low-grade inflammationis not entirely excluded. Prior cholecystectomy. Chronic appearance of the bilateral kidneys with redemonstration oftransplant kidney in the right lower quadrant with mild prominence of thecollecting system. No obvious obstructive calculus is identified; however,the bladder and ureterovesicular junctions are obscured by bilateral beamhardening artifact secondary to hip arthroplasties. Please note that all CT scans at this facility use dose modulation,iterative reconstruction, and/or weight-based dosing when appropriate toreduce radiation dose to as low as reasonably achievable. Dictated by Gab Agarwal MD @ 06/24/2022 3:18:29 PM (Electronically Signed) Debi Alcantar NP CT * (ABNORMAL) LIPID PANEL (03/19/2019 9:30 AM WEATHER TEACHER) CHOLESTEROL,TOTAL 179 100 - 199 mg/dL 03/19/2019 9:59 AM WEATHER TEACHER [facility] TRIGLYCERIDES 195(H) <150 mg/dL 03/19/2019 9:59 AM WEATHER TEACHER [facility] HDL CHOLESTEROL 43 >40 mg/dL 9:59 AM WEATHER TEACHER [facility] NON-HDL CHOLESTEROL 136 <145 mg/dl 03/19/2019 9:59 AM WEATHER TEACHER [facility] CHOL/HDL RATIO 4.16 <4.50 03/19/2019 9:59 AM WEATHER TEACHER [facility] LDL CHOLESTEROL 97 <=130 mg/dL 03/19/2019 9:59 AM WEATHER TEACHER [facility] PROVIDER ORDERED STATUS FASTING 03/19/2019 9:59 AM WEATHER TEACHER [facility] Blood BLOOD SPECIMEN / Unknown Butterfly / Unknown 03/19/2019 9:30 AM WEATHER TEACHER 03/19/2019 9:35 AM WEATHER TEACHER Freddy Dumont MD CHEMISTRY [facility] [address] [place] [address] * COLONOSCOPY SCREENING (09/20/2013) Colby Kennedy MD GI PROCEDURE ORD from Last 3 Months or Most Recently Relevant to Health Maintenance Additional Health Concerns Infection Onset Date Last Indicated CLOSTRIDIUM DIFFICILE Comment:[facility] 09/22/2023 09/22/2023 Advance Directives Documents on File Type Date Recorded Patient Automation Lead Expl anation Healthcare Directive 02/25/2016 12:00 AM Healthcare Directive 02/04/2016 7:11 PM 2 17 JULY 2013 * DNR (Latest Code Status on File) Date Activated Date Inactivated Comments 09/22/2023 12:16 PM 09/23/2023 3:05 PM Question Answer Comments Code Status Discussion: Reviewed Preferences * Full Code Date Activated Date Inactivated Comments 09/21/2023 6:09 PM 09/22/2023 12:15 PM Question Answer Comments Code Status Discussion: Reviewed Preferences * Full Code Date Activated Date Inactivated Comments 06/25/2022 8:35 PM 06/26/2022 8:28 PM Question Answer Comments Code Status Discussion: Reviewed Preferences * Full Code Date Activated Date Inactivated Comments 06/19/2022 1:18 AM 06/23/2022 3:27 PM Question Answer Comments Code Status Discussion: Reviewed Preferences * Full Code Date Activated Date Inactivated Comments 04/27/2016 7:07 PM 04/29/2016 11:20 PM Question Answer Comments Code Status Discussion: Not Discussed Care Teams Plastics Bench Mechanic Relationship Specialty Start Date End Date Rubén Boyle MD [address] [place] [address] PCP - General Family Practice 09/08/21 Nikole Gibbs, RN [id number] [place] [id number] Air Conditioning Specialist 12/20/13
--- NOTE | 2023-12-15 10:58 | W.ANESCHARGE ---
Anesthesia Charges Start Date/Time Anesthesia Start Date: 12/15/23 Anesthesia Start Time: 10:42 Stop Date/Time Anesthesia Stop Date: 12/15/23 Anesthesia Stop Time: 11:00 Summary Extremes of Age - Over 70 or under 1: MDA
--- NOTE | 2023-12-15 11:02 | P.ANES_ITS ---
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
== END 2023-12-15 10:02 | disposition home or self-care (01) ==
LOC: OP CLINIC 10:01
PROVIDERS: PCP Family Medicine; Visit Provider Surgery
DX: R10.13 Epigastric pain (principal); K21.00 Gastro-esophageal reflux disease with esophagitis, without bleeding
CPT/HCPCS: 00731; 43239; 88305; 99100; J2704; J3490

== ENCOUNTER 2024-01-17 16:01 | Inpatient (IN) | payer MEDICARE, BC, SELFPAY ==
[2024-01-17] VITALS (17 sets, daily range): BP systolic 134–153; BP diastolic 77–98; PULSE 95–106; RESP 14–18; TEMP 36.4–36.7; O2SAT 70–100; BMI 31.3; BMI 31.6
--- OUTSIDE RECORDS SUMMARY | 2024-01-17 16:39 | XMS_ITS | Clinical Summary ---
Author Organization [facility] Address [address] [address] Phone Care Team Providers Care Community Education Specialist Name Role Phone Rubén Boyle MD [...] vaccine (Standing Order) (1 of 2) 2002 Pneumococcal Vaccine: 65+ yrs (Standing Order) (2 of 2 - PCV) 2017 02/10/2016, 07/24/2010 TETANUS (Standing Order) 07/31/2020 07/31/2010 COVID-19 Vaccine (2 - 2022- season) 2023 06/19/2020 Influenza Vaccine Seasonal (Standing Order) (#1) 2023 01/24/2016, 01/06/2015, 01/09/2014, Additional history exists PERTUSSIS (Standing Order) Completed 07/31/2010 HPV Vaccine (Standing Order) Aged Out No longer eligible based on patient's age to complete this topic Hepatitis B Vaccine (Standing Order) Aged Out No longer eligible based on patient's age to complete this topic Advance Directives For more information, please contact: [phone] * Full Code (Latest Code Status on File) Date Activated Date Inactivated Comments 01/22/2016 8:55 AM 01/24/2016 5:42 PM Care Teams Community Education Specialist Relationship Specialty Start Date End Date Rubén Boyle MD PCP - General Family Medicine 01/17/16
--- OUTSIDE RECORDS SUMMARY | 2024-01-17 16:40 | XMS_ITS | Encounter Summary ---
Author Organization [facility] Address [address] [place] [address]. [place] [address] Care Team Providers Care Uniform Attendant Name Role Phone Rubén Boyle MD Primary Care Provider Pamela Blanco HULL LINE CREW MEMBER Unavailable Pedro Segura MD Unavailable Freddy Craft MD Unavailable [phone] Nicole Carranza HULL LINE CREW MEMBER Unavailable [phone] Andressa Ruiz PA-C Unavailable [phone] Suzan Harry MD Unavailable [phone] Yasmeen Powers MD Unavailable Yasmeen Powers MD Unavailable Encounter Details Date Type Department Care Team (Late st Contact Info) Description 11/18/2023 Orders Only [facility] [address] [place] [address] Freddy Craft MD 6 [facility] [address] [place] [address] 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) [...] Months for 12 Occurrences starting 11/18/2023 until 11/17/2024, 1 completed documented as of this encounter Results * Tacrolimus by Tandem Mass Spectrometry (12/13/2023 12:00 AM CDT) Tacrolimus(FK-5 06) (External) 8.2 5.0 - 15.0 ng/mL NON-INTERFACED (ONBASE SCANS) Blood BLOOD SPECIMEN / Unknown 12/13/2023 Narrative SAMANTHA PFT - 12/16/2023 11:58 AM CDT Verified by Yamil Santo on 12/16/2023. 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, 07/10/16 rectal swab 06/21/2016 06/21/2016 documented as of this encounter Care Teams Uniform Attendant Relationship Specialty Start Date End Date Rubén Boyle MD PCP - General Family Practice 03/08/16 Pamela Blanco HULL LINE CREW MEMBER [facility] [address] [place], [place] [address] Referring Physician 07/13/16 Pedro Segura MD [facility] [address] [place], [place] [address] Nephrology 10/03/16 Freddy Craft MD 516 [facility] [address] [place], [place] 6[address] Assigned Gastroenterology Provider 02/08/20 Nicole Carranza NP 420 [facility] [address] [place], [place] 6[address] Assigned Heart and Vascular Provider 01/09/22 Andressa Ruiz PA-C 420 [facility] 8[address] [place], [place] [address] Physician Chief Technician X Ray Endocrinology, Diabetes, and Metabolism 03/01/22 Suzan Harry MD 420 [place], [place] 8[address] Nephrology 06/30/23 Yasmeen Powers MD 500 [place], [place] [address] Nephrology 10/24/23 Yasmeen Powers MD 500 [place] [address] Assigned Nephrology Provider 11/08/23 documented as of this encounter
--- OUTSIDE RECORDS SUMMARY | 2024-01-17 16:40 | XMS_ITS | Encounter Summary ---
Author Organization [facility] Address [address] [place] [address] Care Team Providers Care Goggles Assembler Name Role Phone Rubén Boyle MD Primary Care Provider Pamela Blanco TRANSPORT TECHNICIAN Unavailable Pedro Segura MD Unavailable Freddy Craft MD Unavailable [phone] Abdifatah Van MD Unavailable Nicole Carranza TRANSPORT TECHNICIAN Unavailable [phone] Andressa Ruiz PA-C Unavailable Suzan Harry MD Unavailable [phone] Reason for Visit * Reason Onset Date Comments Prior Auth - Medication 10/18/2023 Tacrolim us PA Not Needed Encounter Details Date Type Department Care Team (Late st Contact Info) Description 10/18/2023 Telephone [facility] Blood and Marrow Transplant Program [address] [address] Mónica Suarez Prior Auth - [...] documented as of this encounter Care Teams Goggles Assembler Relationship Specialty Start Date End Date Rubén Boyle MD PCP - General Family Practice 03/08/16 Pamela Blanco NP [facility] [address] [place], [place] [address] Referring Physician 07/13/16 Pedro Segura MD [facility] [address] [place], [place] [address] Nephrology 10/03/16 Freddy Craft MD 516 [facility] [address] [place], [place] [address] Assigned Gastroenterology Provider 02/08/20 Abdifatah Van MD 717 [facility] [address] [place], [place] [address] Assigned Nephrology Provider 07/13/20 11/07/23 Nicole Carranza NP 420 [facility] 508 [place], [place] [address]695 Assigned Heart and Vascular Provider 01/09/22 Andressa Ruiz PA-C 420 [facility] 803 [place], [place] [address] Physician Commercial Hvac Service Technician Endocrinology, Diabetes, and Metabolism 03/01/22 Suzan Harry MD 420 [place], [place] [address] Nephrology 06/30/23 documented as of this encounter
--- OUTSIDE RECORDS SUMMARY | 2024-01-17 16:40 | XMS_ITS | Encounter Summary ---
Author Organization [facility] Address [address] [place] [address] Care Team Providers Care Stencil Sprayer Name Role Phone Rubén Boyle MD Primary Care Provider Pamela Blanco MOLDED RUBBER GOODS CUTTER Unavailable Pedro Segura MD Unavailable [phone] Freddy Craft MD Unavailable Abdifatah Van MD Unavailable Nicole Carranza MOLDED RUBBER GOODS CUTTER Unavailable Andressa Ruiz-C Unavailable [phone] Suzan Harry MD Unavailable [phone] Yasmeen Powers MD Unavailable Yasmeen Powers MD Unavailable [phone] Encounter Details Date Type Department Care Team (Late st Contact Info) Description 10/18/2023 Telephone [facility] [address] [place] [address] Laurie Carmen LPN Social History [...] order to submit PA. Alec will call mortgage underwriter back. 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, 07/10/16 rectal swab 06/21/2016 06/21/2016 documented as of this encounter Care Teams Stencil Sprayer Relationship Specialty Start Date End Date Rubén Boyle MD PCP - General Family Practice 03/08/16 Pamela Blanco NP [facility] [address] [place] [address] Referring Physician 07/13/16 Pedro Segura MD [facility] [address] [place] [address] Nephrology 10/03/16 Freddy Craft MD [address] 2[address] Assigned Gastroenterology Provider 02/08/20 Abdifatah Van MD 717 [facility] [address] [place] [address] Assigned Nephrology Provider 07/13/20 11/07/23 Nicole Carranza NP 420 [facility] [address] [place] [address] Assigned Heart and Vascular Provider 01/09/22 Andressa Ruiz PA-C 420 [facility] 803 [place] [address] Physician Display Mechanic Endocrinology, Diabetes, and Metabolism 03/01/22 Suzan Harry MD 420 [place] [address] Nephrology 06/30/23 Yasmeen Powers MD 500 [place] [address] Nephrology 10/24/23 Yasmeen Powers MD 500 [place] [address] Assigned Nephrology Provider 11/08/23 documented as of this encounter
--- OUTSIDE RECORDS SUMMARY | 2024-01-17 16:40 | XMS_ITS | Encounter Summary ---
Author Organization [facility] Address [address] [place] [address] Care Team Providers Care It Software Engineer Name Role Phone Rubén Boyle MD Primary Care Provider Pamela Blanco DISK SHARPENER Unavailable Pedro Segura MD Unavailable [phone] Freddy Craft MD Unavailable [phone] Nicole Carranza DISK SHARPENER Unavailable [phone] Andressa Ruiz-C Unavailable [phone] Suzan Harry MD Unavailable [phone] Yasmeen Powers MD Unavailable [phone] Yasmeen Powers MD Unavailable [phone] Reason for Visit * Reason Onset Date Comments Transplant 01/11/2024 Encounter Details Date Type Department Care Team (Late st Contact Info) Description 01/11/2024 Telephone [facility] [address] [place] [address] Felipa Raya, television equipment operator Social History Tobacco Use Types Packs/Day Years [...] Telephone Encounter - Felipa Raya RN - 01/11/2024 9:37 AM CDT ISSUE Due for transplant labs with good 12 hour Tac trough. PLAN Call Lito: Confirm current Tac dose 2 mg in the AM and 3 mg in the PM Advise labs in the next 1-2 weeks. OUTCOME Lito confirmed current Tac dose 2/3. Confirmed he is drinking plenty of water. States he will have labs drawn in the next week. Verbalized understanding of a good 12 hour trough. 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, 07/10/16 rectal swab 06/21/2016 06/21/2016 documented as of this encounter Care Teams It Software Engineer Relationship Specialty Start Date End Date Rubén Boyle MD PCP - General Family Practice 03/08/16 Pamela Blanco DISK SHARPENER [facility] [address] [place] [address] Referring Physician 07/13/16 Pedro Segura MD [facility] [address] [place] [address] Nephrology 10/03/16 Freddy Craft MD [address] [place] [address], [place] [address] Assigned Gastroenterology Provider 02/08/20 Nicole Carranza NP 420 [facility] 508 [place] [address] Assigned Heart and Vascular Provider 01/09/22 Andressa Ruiz PA-C 420 [facility] 803 [place] [address] Physician Plate Driller Endocrinology, Diabetes, and Metabolism 03/01/22 Suzan Harry MD [address] [place] [address] Nephrology 06/30/23 Yasmeen Powers MD 500 [place] [address] Nephrology 10/24/23 Yasmeen Powesr MD 500 [place] [address] Assigned Nephrology Provider 11/08/23 documented as of this encounter
--- OUTSIDE RECORDS SUMMARY | 2024-01-17 16:40 | XMS_ITS | Encounter Summary ---
Author Organization [facility] Address [address] [place] [address] Care Team Providers Care Health And Human Performance Professor Name Role Phone Rubén Boyle MD Primary Care Provider Pamela Blanco DEPUTY DIRECTOR OF FINANCE Unavailable Pedro Segura MD Unavailable Freddy Craft MD Unavailable [phone] Abdifatah Van MD Unavailable Nicole Carranza DEPUTY DIRECTOR OF FINANCE Unavailable [phone] Andressa Ruiz PA-C Unavailable Suzan Harry MD Unavailable [phone] Reason for Visit * Reason Onset Date Comments Prior Auth - Medication 10/18/2023 Azathiop rine 50 mg PA Not Needed Encounter Details Date Type Department Care Team (Late st Contact Info) Description 10/18/2023 Telephone [facility] Blood and Marrow Transplant Program [address] [address] Mónica Suarez Prior Auth - [...] Telephone Encounter - Mónica Suarez - 10/18/2023 12:10 PM CDT Images [...] documented as of this encounter Care Teams Health And Human Performance Professor Relationship Specialty Start Date End Date Rubén Boyle MD PCP - General Family Practice 03/08/16 Pamela Blanco NP [facility] [address] [place] [address] Referring Physician 07/13/16 Pedro Segura MD [facility] [address] [place] [address] Nephrology 10/03/16 Freddy Craft MD 516 [facility] [address] [place] [address] Assigned Gastroenterology Provider 02/08/20 Abdifatah Van MD 717 [facility] [address] [place] [address] Assigned Nephrology Provider 07/13/20 11/07/23 Nicole Carranza NP 420 [facility] 508 [place] [address] Assigned Heart and Vascular Provider 01/09/22 Andressa Ruiz PA-C 420 [facility] 803 [place], [place] [address]145 Physician Product Support Specialist Endocrinology, Diabetes, and Metabolism 03/01/22 Suzan Harry MD 420 [place], [place] [address] Nephrology 06/30/23 documented as of this encounter
--- OUTSIDE RECORDS SUMMARY | 2024-01-17 16:40 | XMS_ITS | Encounter Summary ---
Author Organization [facility] Address [address] [place] [address] Care Team Providers Care Hydraulic Rock Drill Operator Name Role Phone Rubén Boyle MD Primary Care Provider Pamela Blanco SHOWER SCREEN INSTALLER Unavailable Pedro Segura MD Unavailable [phone] Freddy Craft MD Unavailable Nicole Carranza SHOWER SCREEN INSTALLER Unavailable [phone] Andressa Ruiz-C Unavailable Suzan Harry MD Unavailable [phone] Yasmeen Powers MD Unavailable [phone] Yasmeen Powers MD Unavailable [phone] Reason for Visit * Reason Onset Date Comments Prior Auth - Medication 12/28/2023 Tacrolim us 1mg Encounter Details Date Type Department Care Team (Late st Contact Info) Description 12/28/2023 Telephone [facility] Transplant Clinic [address] [place] [address] Laurie Carmen LPN Prior Auth - Medication (Tacrolimus 1mg) Social History Tobacco Use Types Packs/Day Years [...] encounter Miscellaneous Notes * Telephone Encounter - Israel Henderson - 01/02/2024 2:52 PM CDT Retail Pharmacy Prior Authorization Team PA is not needed. Pharmacy mistakenly tried to process under patient's Medicare part D, which created a request for a PA that was sent to PA team. Spoke with pharmacy to advise this medication shouldbe processed under patient's Medicare part B. Pharmacy states they figured that out and medication has been processed and patient picked up. * Telephone Encounter - Laurie Carmen LPN - 12/28/2023 3:18 PM CDT Prior Authorization Specialty Medication Request Medication/Dose: Tacrolimus 1mg Diagnosis and ICD code (if different than what is on RX): Z94.4 New/renewal/insurance change PA/secondary ins. 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, 07/10/16 rectal swab 06/21/2016 06/21/2016 documented as of this encounter Care Teams Hydraulic Rock Drill Operator Relationship Specialty Start Date End Date Rubén Boyle MD PCP - General Family Practice 03/08/16 Pamela Blanco SHOWER SCREEN INSTALLER [facility] [address] [place] [address] Referring Physician 07/13/16 Pedro Segura MD [facility] [address] [place] [address] Nephrology 10/03/16 Freddy Craft MD 516 [facility] 2A [place], [place] [address] Assigned Gastroenterology Provider 02/08/20 Nicole Carranza NP 420 [facility] 508 [place], [place] [address] Assigned Heart and Vascular Provider 01/09/22 Andressa Ruiz PA-C 420 [facility] 803 [place], [place] [address] Physician Clinical Resource Coordinator Endocrinology, Diabetes, and Metabolism 03/01/22 Suzan Harry MD 420 [place], [place] [address] Nephrology 06/30/23 Yasmeen Powers MD 500 [place] [address] Nephrology 10/24/23 Yasmeen Powers MD 500 [place], [place] [address]345 Assigned Nephrology Provider 11/08/23 documented as of this encounter
--- OUTSIDE RECORDS SUMMARY | 2024-01-17 16:40 | XMS_ITS | Encounter Summary ---
Author Organization [facility] Address [address] [place] [address] Care Team Providers Care Clinical Registered Nurse Name Role Phone Rubén Boyle MD Primary Care Provider [phone] Pamela Blanco ELECTRIC ORGAN CHECKER Unavailable [phone] Pedro Segura MD Unavailable [phone] Freddy Craft MD Unavailable Nicole Carranza ELECTRIC ORGAN CHECKER Unavailable [phone] Andressa Ruiz-C Unavailable Suzan Harry MD Unavailable [phone] Yasmeen Powers MD Unavailable [phone] Yasmeen Powers MD Unavailable [phone] Encounter Details Date Type Department Care Team (Late st Contact Info) Description 01/03/2024 MyC Medical Advice [facility] Transplant Clinic 9 [place] [address] Calli Hall, RN Social History [...] as of this encounter Care Teams Clinical Registered Nurse Relationship Specialty Start Date End Date Rubén Boyle MD PCP - General Family Practice 03/08/16 Pamela Blanco NP [facility] [address] [place], [place] [address] Referring Physician 07/13/16 Pedro Segura MD [facility] [address] [place], [place] [address] Nephrology 10/03/16 Freddy Craft MD 516 [facility] 2A [place], [place] [address] Assigned Gastroenterology Provider 02/08/20 Nicole Carranza, [place] 420 [facility] 508 [place], [place] [address] Assigned Heart and Vascular Provider 01/09/22 Andressa Ruiz PA-C 420 [facility] 803 [place], [place] [address] Physician Owner Consulting Engineer Endocrinology, Diabetes, and Metabolism 03/01/22 Suzan Harry MD [address] [place] [address] Nephrology 06/30/23 Yasmeen Powers MD 500 [place] [address] Nephrology 10/24/23 Yasmeen Powers MD 500 [place] [address] Assigned Nephrology Provider 11/08/23 documented as of this encounter
--- OUTSIDE RECORDS SUMMARY | 2024-01-17 16:40 | XMS_ITS | Encounter Summary ---
Author Organization [facility] Address [address] [place] [address] Care Team Providers Care Plant Operations Engineer Name Role Phone Rubén Boyle MD Primary Care Provider Pamela Blanco MAT TESTER Unavailable Pedro Segura MD Unavailable Freddy Craft MD Unavailable [phone] Abdifatah Van MD Unavailable Nicole Carranza MAT TESTER Unavailable [phone] Andressa Ruiz-C Unavailable [phone] Suzan Harry MD Unavailable [phone] Yasmeen Powers MD Unavailable Yasmeen Powesr MD Unavailable Reason for Visit * Reason Onset Date Comments Appointment 10/24/2023 Encounter Details Date Type Department Care Team (Late st Contact Info) Description 10/24/2023 Telephone [facility] Transplant [facility] [address] [place] [address] Felipa Raya, RN Appointment Social [...] been sent to his PCP clinic in [place]. Thank you! 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 06/21/2016 06/21/2016 documented as of this encounter Care Teams Plant Operations Engineer Relationship Specialty Start Date End Date Rubén Boyle MD PCP - General Family Practice 03/08/16 Pamela Blanco MAT TESTER [facility] [address] [place] [address] Referring Physician 07/13/16 Pedro Segura MD [facility] [address] [place] [address] Nephrology 10/03/16 Freddy Craft MD [address] [place] [address], [place] [address] Assigned Gastroenterology Provider 02/08/20 Abdifatah Van MD 717 [facility] [address] [place] [address] Assigned Nephrology Provider 07/13/20 11/07/23 Nicole Carranza NP 420 [facility] 508 [place] [address] Assigned Heart and Vascular Provider 01/09/22 Andressa Ruiz PA-C 420 [facility] 803 [place] [address] Physician Tying Machine Operator Lumber Endocrinology, Diabetes, and Metabolism 03/01/22 Suzan Harry MD 420 [place] [address] Nephrology 06/30/23 Yasmeen Powers MD 500 [place] [address] Nephrology 10/24/23 Yasmeen Powers MD 500 [place] [address] Assigned Nephrology Provider 11/08/23 documented as of this encounter
--- OUTSIDE RECORDS SUMMARY | 2024-01-17 16:40 | XMS_ITS | Encounter Summary ---
Author Organization [facility] Address [address] [place] [address] Care Team Providers Care Special Machine Stitcher Name Role Phone Rubén Boyle MD Primary Care Provider Pamela Blanco ENVIRONMENTAL ECONOMIST Unavailable Pedro Segura MD Unavailable [phone] Freddy Craft MD Unavailable [phone] Nicole Carranza ENVIRONMENTAL ECONOMIST Unavailable [phone] Andressa Ruiz-C Unavailable [phone] Suzan Harry MD Unavailable [phone] Yasmeen Powers MD Unavailable [phone] Yasmeen Powers MD Unavailable [phone] Encounter Details Date Type Department Care Team (Late st Contact Info) Description 12/13/2023 External Order Results [facility] [address] [place] [address] Outside, Provider 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) [...] Comments TACROLIMUS BY TANDEM MASS SPECTROMETRY Routine 12/13/2023 12:00 AM CDT 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) documented in this encounter Results * Tacrolimus by Tandem Mass Spectrometry (12/13/2023 12:00 AM CDT) Tacrolimus(FK-5 06) (External) 8.2 5.0 - 15.0 ng/mL NON-INTERFACED (ONBASE SCANS) Blood BLOOD SPECIMEN / Unknown 12/13/2023 Narrative [facility] - 12/16/2023 11:58 AM CDT Verified [...] as of this encounter Care Teams Special Machine Stitcher Relationship Specialty Start Date End Date Rubén Boyle MD PCP - General Family Practice 03/08/16 Pamela Blanco ENVIRONMENTAL ECONOMIST [facility] [address] [place] [address] Referring Physician 07/13/16 Pedro Segura MD [facility] [address] [place] [address] Nephrology 10/03/16 Freddy Craft MD 516 [facility] 2[address] [place] [address] Assigned Gastroenterology Provider 02/08/20 Nicole Carranza NP 420 [facility] 508 [place] [address] Assigned Heart and Vascular Provider 01/09/22 Andressa Ruiz PA-C 420 [facility] 803 [place] [address] Physician Sinter Machine Operator Endocrinology, Diabetes, and Metabolism 03/01/22 Suzan Harry MD 420 [place], [place] [address] Nephrology 06/30/23 Yasmeen Powers MD 500 [place] [address] Nephrology 10/24/23 Yasmeen Powers MD 500 [place] [address] Assigned Nephrology Provider 11/08/23 documented as of this encounter
--- OUTSIDE RECORDS SUMMARY | 2024-01-17 16:40 | XMS_ITS | Encounter Summary ---
Author Organization [facility] Address [address] [place] [address] Care Team Providers Care Airframe And Powerplant Technician Name Role Phone Rubén Boyle MD Primary Care Provider Pamela Blanco EQUINE SCIENCE INSTRUCTOR Unavailable Pedro Segura MD Unavailable [phone] Freddy Craft MD Unavailable Nicole Carranza EQUINE SCIENCE INSTRUCTOR Unavailable [phone] Andressa Ruiz-C Unavailable Suzan Harry MD Unavailable [phone] Yasmeen Powers MD Unavailable [phone] Yasmeen Powers MD Unavailable [phone] Reason for Visit * Reason Onset Date Comments Transplant Immunosuppression Management 12/16/19 24 Encounter Details Date Type Department Care Team (Late st Contact Info) Description 12/16/2023 Telephone [facility] [address] [place] [address] Malinda Alves RN Transplant Immunosuppression [...] Telephone Encounter - Laurie Carmen LPN - 12/20/2023 1:34 PM CDT Asked pt's brother to have pt contact our office. * Telephone Encounter - Malinda Alves RN - 12/16/2023 12:19 PM CDT ISSUE: Tacrolimus IR level 8.2 on 12/13/23, goal 4-6, dose 3 mg BID. PLAN: Call Patient and confirm this was an accurate 12-hour trough. Verify Tacrolimus IR dose 3 mg BID. Confirm no new medications or illness. Confirm no missed doses. If accurate trough and accurate dose, decrease Tacrolimus IR dose to 2 mg in AM and 3 mg in PM. Repeat labs in 2 months. Malinda Alves RN OUTCOME: Spoke with Patient, they confirm accurate trough level and current dose 3 mg BID. Patient confirmed dose change to 2 mg am, 3 mg pm. Patient agreed to repeat labs in 2 months. Orders sent to preferred pharmacy for [...] documented as of this encounter Care Teams Airframe And Powerplant Technician Relationship Specialty Start Date End Date Rubén Boyle MD PCP - General Family Practice 03/08/16 Pamela Blanco, EQUINE SCIENCE INSTRUCTOR [facility] [address] [place] [address] Referring Physician 07/13/[address] [facility] [address] [place] [address] Nephrology 10/03/16 Freddy Craft MD [address] [facility] [address] [place], [place] [address] Assigned Gastroenterology Provider 02/08/20 Nicole Carranza NP 420 [facility] [address] [place], [place] [address] Assigned Heart and Vascular Provider 01/09/22 Andressa Ruiz PA-C 420 [facility] [address] [place], [place] [address] Physician Tradeshow Worker Endocrinology, Diabetes, and Metabolism 03/01/22 Suzan Harry MD [address] [place], [place] [address] Nephrology 06/30/23 Yasmeen Powers MD [address] [place], [place] [address] Nephrology 10/24/23 Yasmeen Powers MD [address] [place], [place] [address] Assigned Nephrology Provider 11/08/23 documented as of this encounter
--- OUTSIDE RECORDS SUMMARY | 2024-01-17 16:40 | XMS_ITS | Referral Summary ---
Author Organization [facility] Address [address] [place] [address] Care Team Providers Care Laboratory Assistant Name Role Phone Rubén Boyle MD Primary Care Provider Pamela Blanco VRT MECHANIC Unavailable [phone] Pedro Segura MD Unavailable Freddy Craft MD Unavailable [phone] Deshawn Guevara VRT MECHANIC Unavailable Andressa Ruiz-Citlali Unavailable [phone] Suzan Harry MD Unavailable [phone] Yasmeen Powers MD Unavailable Yasmeen Powers MD Unavailable Encounters Date Type Department Care Team Description 01/11/2024 Telephone [facility] [address] [place] [phone] Felipa Raya, pipe organ mechanic apprentice 01/03/2024 MyC Medical Advice [facility] [address] [place] [phone] Calli Hall RN 12/28/2023 Telephone [facility] [address] [place] [phone] Laurie Carmen LPN Prior Auth - Medication (Tacrolimus 1mg) 12/16/2023 Telephone [facility] [address] [place] [phone] Malinda Alves, pipe organ mechanic apprentice Immunosuppression Management 12/13/2023 External Order Results [facility] [address] [place] [address] Outside, Provider 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) 11/18/2023 Orders Only [facility] [address] [place] [phone] Freddy Craft MD 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) (Primary Dx) 10/24/2023 Telephone [facility] [address] [place] [phone] Felipa Raya, BENTLEY Appointment 10/18/2023 Telephone [facility] [address] [address] Mónica Suarez Prior Auth - Medication (Azathioprine 50 mg PA Not Needed) 10/18/2023 Telephone [facility] [address] [phone] Mónica Suarez Prior Auth - Medication (Tacrolimus PA Not Needed) 10/18/2023 Telephone [facility] [address] [address] Laurie Carmen LPN 10/17/2023 Orders Only [facility] [address] [place] [phone] Felipa Raya, RN 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 transplant (Primary Dx) from Last 3 Months Allergies Active Allergy Reactions Criticality Noted Date Comments Phytonadione Other (See Comments),Nausea 07/28/2016 IV formulation Nausea, diaphoresis Medications Medication Sig Dispensed Refills Start Date End Date Status multivitamin, therapeutic (THERA-VIT) TABS tabletIndications:sup plement Take 1 tablet by mouth daily 30 tablet 3 7 Active gabapentin (NEURONTIN) 600 MG tablet Take 600 mg by mouth 2 times daily Active oxyCODONE (ROXICODONE) 5 MG IR tablet Take 2.5-5 mg by mouth every 6 hours as needed 7 Active Insulin Pen Needle (PEN NEEDLES 08/31) 31G X 8 MM MISC For administering insulin at home QID. 7 Active citalopram (CELEXA) 40 MG tabletIndications:Jennifer er transplant recipient (H) Take 40 mg by mouth daily Prescribed by pcp 60 tablet 8 Active Cholecalciferol 100 MCG (4000 UT) CAPSIndications:Vitam in D deficiency Take 1 capsule by mouth daily 90 capsule 3 1 Active atorvastatin (LIPITOR) 20 MG tabletIndications:Hyp ercholesterolemia Take 1 tablet (20 mg) by mouth daily 90 tablet 3 2 Active tamsulosin (FLOMAX) 0.4 MG capsule Take 0.4 mg by mouth daily 2 Active aspirin (ASA) 81 MG chewable tabletIndications:Sta tus post coronary angiogram Take 1 tablet (81 mg) by mouth daily Starting tomorrow. 30 tablet 3 2 Active fentaNYL (DURAGESIC) 25 mcg/hr [address] 1 patch onto the skin every 72 hours remove old patch. Active insulin aspart (NOVOLOG VIAL) 100 UNITS/ML vial 100 Units Uses 100 units per day via insulin pump Active diphenoxylate-atropin e (LOMOTIL) 2.5-0.025 MG tablet Take 2 tablets by mouth 3 times daily as needed for diarrhea Active furosemide (LASIX) 40 MG tablet Take 1 tablet (40 mg) by mouth daily as needed (for leg swelling) 3 Active sodium bicarbonate 650 MG tabletIndications:Kid annette replaced by transplant Take 2 tablets (1,300 mg) by mouth 2 times daily 180 tablet 3 3 Active omeprazole (PRILOSEC) [address] capsuleIndications:Li gee replaced by transplant (H) Take 2 capsules (40 mg) by mouth daily 180 capsule 3 3 Active patiromer (VELTASSA) 8.4 g packetIndications:Hyp erkalemia Take 8.4 g by mouth daily 5 packet 3 Active azaTHIOprine (IMURAN) 50 MG tabletIndications:His tory of liver transplant (H),Status post kidney transplant,Long-term use of immunosuppressant medication Take 3 tablets (150 mg) by mouth daily 270 tablet 1 4 Active tacrolimus (GENERIC EQUIVALENT) 1 MG capsuleIndications:Li gee replaced by transplant (H) Take 2 capsules (2 mg) by mouth every morning AND 3 capsules (3 mg) every evening. 450 capsule 3 4 Active tacrolimus (GENERIC EQUIVALENT) 1 MG capsuleIndications:Li gee replaced by transplant (H) Take 3 capsules (3 mg) by mouth every 12 hours 540 capsule 3 4 12/20/19 24 Discontin ued(Reord er (No AVS)) Active Problems Patient Care Coordination No te Formatting of this note migh t be different from the original. [facility] [place], [place] Fax #: [phone] Pharm - [facility]. Problem Noted Date Diagnosed Date Weakness of both lower extremities 10/11/2023 Metabolic acidosis 08/30/2022 HTN, kidney transplant related 08/30/2022 Stage 3a chronic kidney disease 03/03/2022 Lymphopenia 12/14/2021 Aftercare following organ transplant 10/03/2016 Anemia in stage 3a chronic kidney disease 2016 Hypomagnesemia 10/03/2016 Type 2 diabetes mellitus with neurologic complic ation 08/02/2016 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 transplant 08/02/2016 Immunosuppressed status 07/19/2016 Liver replaced by transplant 07/10/2016 Resolved [...] 019 Hyperkalemia 08/02/2016 10/03/2016 Acute kidney injury 08/02/2016 10/04/19 Protein-calorie malnutrition, severe 08/02/2016 07/11/2018 Physical deconditioning 08/02/201611/17 Long-term (current) use of a nticoagulants [Z79.01] 07/26/2016 08/30/2022 Diarrhea 07/19/2016 01/25/2017 Chylous peritoneal fluid 07/19/2016 Acute blood loss as cause of postoperative anemia 07/19/2016 10/03/2016 Liver transplant candidate 07/10/2016 0 07/19/2016 Hypotension 07/03/2016 07/11/2018 Volume overload 06/15/2016 10/03/2016 ROSANA (acute kidney injury) 04/29/2016 Alcoholic cirrhosis of liver with ascites 03/17/2016 01/25/2017 Immunizations Name Administration Dates Next Due COVID-19 MONOVALENT 12+ (Pfizer) 01/12/2021,06/17,06/19/2020 COVID-19 Monovalent 12+ (Pfizer 2021) 09/17/2021 Flu 65+ (Fluad) 01/10/2018 Flu, Unspecified 02/03/2013, 2,02/04/2010,2008,02/06/2008,02/27/2007,03/03/2005,1 04/25/2003,02/13/2003 Influenza (High Dose) Trival ent,PF (Fluzone) 02/05/2020,03/16/2019,01/24/2016 Influenza (IIV3) PF 01/25/2017, 6,02/03/2013,2011,01/27/2011,02/04/2010,01/14/2009,1 ,02/27/2007,02/16/2006, 005,02/24/2004,02/13/2003 Influenza Vaccine 65+ (FLUAD) 01/12/2022, 021 Influenza Vaccine >6 months,quad, PF ,01/24/2016,01/06/2015,2013,01/27/2011 Influenza Vaccine Trivalent (FluBlok) 01/06/2015 ,01/09/2014 Influenza Vaccine, 6+MO IM (QUADRIVALENT W/PRESERVATIVES) 01/24/2016 [...] DT Respiratory Rate 14 03/02/2022 4:40 AM [facility] Oxygen Saturation 96% 10/11/2023 11:30 AM CDT Inhaled Oxygen Concentration - - Weight 96.3 kg (212 lb 3.2 oz) 10/11/2023 11:30 AM CDT Height 175.3 cm (5' 9) 08/30/2022 8:54 AM CDT Body Mass Index 31.34 08/30/2022 8:54 AM CDT Plan of Treatment Not on file Medical Devices Implanted Type Area Turf Farmer Device Identifier Shelf Expiration Date Model / Serial / Lot Stent Coronary Gelacio Synergy Xd Mr Us [id number] - [id number] Implanted:Qty: 1 on 02/12/2022 at [facility] Stent Drug Eluting (GELACIO) [employer] 03/09/2023 [id number] / / [id number] Stent Coronary Gelacio Brenda Xd Mr Us [id number] - [id number] Implanted:Qty: 1 on 02/12/2022 at [facility] Stent Drug Eluting (GELACIO) [employer] 03/16/2023 [id number] / / [id number] Closure Angioseal 6fr 957280 - [id number] Implanted:Qty: 1 on 02/12/2022 at [facility] 11/15/2022 [id number] / / [id number] Closure Angioseal 6fr [id number] - [id number] Implanted:Qty: 1 on 02/12/2022 at [facility] 11/15/2022 [id number] / / [id number] Closure Angioseal 6fr 960304 - [id number] Implanted:Qty: 1 on 02/24/2022 at [facility] 09/15/2022 [id number] / / [id number] Explanted Type Area Turf Farmer Device Identifier Shelf Expiration Date Model / Serial / Lot Stent Ureteral Soft Universa [id number] Us-518 [id number] Implanted:Qty: 1 on 07/11/2016 by Aime Vu MD at [facility] Explanted:Qty: 1 on 08/19/2016 by Aime Vu MD at [facility] Stent N/A: Ureter [employer] 02/12/2019 US-518 / / [id number] Procedures Procedure Name Priority Date/Time Associated Diagnosis Comments TACROLIMUS BY TANDEM MASS SPECTROMETRY Routine 12/13/2023 12:00 AM CDT 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) CBC WITH PLATELETS Routine 09/30/2023 9: 40 AM CDT 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) BASIC METABOLIC PANEL Routine 09/30/2023 9:40 AM CDT 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) HEPATIC FUNCTION PANEL Routine 04/05/2023 12:30 PM [facility] 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) LIPID PROFILE Routine 01/31/2023 8:54 AM CDT S/P TAVR (transcatheter aortic valve replacement) 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 UA MACROSCOPIC WITH REFLEX TO MICRO AND CULTURE Routine 02/25/2022 9:[address] ABDOMEN PELVIS W/O CONTRAST STAT 02/25/2022 12:10 AM [facility]UCATION HEMOGLOBIN A1C Routine 02/24/2022 9:[address] ANGIOGRAM TAVR Routine 01/13/2022 12: 33 PM CDT Other ill-defined heart diseases Severe aortic stenosis HEPATITIS C ANTIBODY Routine 05/13/2020 8:50 AM [employer]UCATION ALBUMIN RANDOM URINE QUANTITATIVE Routine 05/17/2019 10:05 AM [facility] COLONOSCOPY Routine 03/31/2017 10:57 AM DE[employer] EDUCATION TSH STAT 07/02/2016 3:42 PM CDT from Last 3 Months or Most Recently Relevant to Health Maintenance Results * Tacrolimus by Tandem Mass Spectrometry (12/13/2023 12:00 AM CDT) Tacrolimus(FK-5 06) (External) 8.2 5.0 - 15.0 ng/mL NON-INTERFACED (ONBASE SCANS) Blood BLOOD SPECIMEN / Unknown 12/13/2023 Subhash MARTINEZT - 12/16/2023 11:58 AM CDT Verified by [...] / Unknown 09/30/2023 9:40 AM CDT Narrative SAMANHTA PFT - 10/03/2023 12:31 PM CDT Verified [...] SCANS) * Hepatic panel (04/05/2023 12:30 PM DEAN OF EDUCATION) Protein Total (External) 6.3 6.0 - 8.3 [...] BLOOD SPECIMEN / Unknown 04/05/2023 12:30 PM DE[employer] OF EDUCATION Narrative BREEZE PFT - 04/07/2023 6:33 AM DEAN OF EDUCATION Verified by Yamil Santo on 04/07/2023. Freddy Dumont MD LAB - BLOOD ORD ERABLES Performing Organization Address City/State/[facility] Co de Phone Number SAMANTHA PFT NON-INTERFACED (ONBASE SCANS) * (ABNORMAL) Lipid Profile (01/31/2023 8:54 AM CDT) Cholesterol 104 <200 mg/dL 01/31/2023 9:30 AM CDT [facility] Triglycerides 225(H) <150 mg/dL 01/31/2023 9:30 AM CDT [facility] Direct Measure HDL 33(L) >=40 mg/dL 01/31/2023 9:30 AM CDT [facility] LDL Cholesterol Calculated 26 <=100 mg/dL 01/31/2023 9:30 AM CDT [facility] Non HDL Cholesterol 71 <130 mg/dL 01/31/2023 9:30 AM CDT [facility] Blood STRUCTURE OF LEFT UPPER LIMB / Unknown Venipuncture / Unknown 01/31/2023 8:54 AM CDT 01/31/2023 8:57 AM CDT Narrative [facility] - 01/31/2023 9:30 [...] ORDERA BLES [facility] [place] [address] [facility] 1st [place] [address] * (ABNORMAL) UA reflex to Microscopic and Culture (02/25/2022 9:55 PM [facility]UCATION) Color Urine Yellow Colorless, Straw, Light Yellow, Yellow 02/25/2022 10:20 PM [facility] Appearance Urine Clear Clear 02/26/20 10:20 PM DE[facility] OF [facility]UCATION [facility] Glucose Urine 100(A) Negative mg/dL 02/25/2022 10:20 PM DE[facility] OF [facility]UCATION [facility] Bilirubin Urine Negative Negative 10:20 PM DEAN OF EDUCATION [facility] Ketones Urine 20(A) Negative mg/dL 02/25/2022 10:20 PM DE[facility] OF EDUCATION [facility] Specific [place] Urine 1.026 1.003 - 1.035 02/25/2022 10:20 PM DE[facility] OF EDUCATION [facility] Blood Urine Negative Negative 02/25/2022 10:20 PM DEAN OF EDUCATION [facility] pH Urine 5.0 5.0 - 7.0 02/25/2022 10:20 PM DEAN OF EDUCATION [facility] Protein Albumin Urine 10(A) Negative mg/dL 02/25/2022 10:20 PM DE[facility] OF [facility]UC[facility] Urobilinogen Urine Normal Normal, 2.0 mg/dL 02/25/2022 10:20 PM DEAN OF EDUCATION [facility] Nitrite Urine Negative Negative 02/25/2022 10:20 PM DEAN OF EDUCATION [facility] Leukocyte Esterase Urine Negative Negative 02/25/2022 10:20 PM DEAN OF EDUCATION [facility] Mucus Urine Present(A) None Seen /LPF 02/25/2022 10:20 PM DEAN OF EDUCATION [facility] RBC Urine <1 <=2 /HPF 02/25/2022 10:20 PM DEAN OF [facility]UCATION [facility] WBC Urine 1 <=5 /HPF 02/25/2022 10:20 PM DEAN OF EDUCATION [facility] Squamous Epithelials Urine <1 <=1 /HPF 02/25/2022 10:20 PM DEAN OF EDUCATION [facility] Hyaline Casts Urine 4(H) <=2 /LPF 02/25/2022 10:20 PM DEAN OF EDUCATION [facility] Urine URINE SPECIMEN OBTAINED BY CLEAN CATCH PROCEDURE / Unknown Non-blood Collection / Unknown 02/25/2022 9:55 PM DEAN OF EDUCATION 02/25/2022 10:01 PM [facility] Narrative [facility] - 02/25/2022 10:20 PM [facility] [employer] Urine Culture not indicated Rubén Zambrano MD LAB - URINE ORDERABL ES [facility] [address] [facility], Room [address] [place] [address] [phone] * CT Abdomen Pelvis w/o Contrast (02/25/2022 12:10 AM DEAN OF EDUCATION) Anatomical Region Laterality Modality Abdomen/Pelvis, SUBRAD CT MINA DY, UMP CT ABDOMEN PELVIS, RAD CT Computed Tomography Impressions 02/25/2022 8:18 AM [facility]UCATION IMPRESSION: 1. 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 2. Colonic diverticulosis without evidence of acute diverticulitis. 3. No intra-abdominal findings to suggest etiology for patient's symptoms. I have personally reviewed the examination and initial interpretation and I agree with the findings. SEA WOOD MD Narrative 02/25/2022 8:18 AM [facility] [employer] EXAMINATION: CT ABDOMEN PELVIS W/O CONTRAST, 02/25/2022 [...] lesions. Unremarkable spleen. No adrenal nodules. Atrophic quartz valley kidneys with simple renal cyst in the [...] lesions. Unremarkable spleen. No adrenal nodules. Atrophic quartz valley kidneys with simple renal cyst in the [...] agree with the findings. SEA WOOD MD Sengwu Marybeth Barry MD IMG CT OR DERABLES * (ABNORMAL) Hemoglobin A1c (02/24/2022 9:42 PM [facility] EDUCATION) Hemoglobin A1C 5.7(H) <5.7 % 02/24/2022 11:58 PM [facility]UC[facility] Comment: Normal <5.7% Prediabetes 5.7-6.4% ?? Diabetes 6.5% or higher Note: Adopted from ADA consensus guidelines. Blood STRUCTURE OF LEFT HAND / Unknown Venipuncture / Unknown 02/24/2022 9:42 PM [facility] [employer] 02/24/2022 9:55 PM [facility] Theresa Ayala APRN MANAGER HIV LAB - BLOOD OR DERABLES [facility] [place] [facility] [address] [facility], [address] [place] [address], [facility] [phone] * CT Angiogram TAVR (01/13/2022 12:33 PM CDT) Anatomical Region Laterality Modality Lower Extremity, [facility] CT CTA Comp uted Tomography Impressions 01/13/2022 [...] aortic root calcification. 3. ??There are significant quartz valley coronary calcifications. 4. ??The arch vessel branching pattern is normal. 5. ??The suprarenal abdominal aorta is moderately calcified; infrarenal abdominal aorta is severely calcified 6. ??Widely patent origins of celiac trunk, superior mesenteric artery and inferior mesenteric artery. ??Single bilateral renal arteries with widely patent origins. 7. ??There is no acute aortic pathology, such as dissection, intramural hematoma, or contained rupture. MEASUREMENTS: Audiology Technician dimensions of the thoracoabdominal aorta are as [...] in a spiral gated mode with limited [id number] followed by gated high pitch spiral CTA of the chest, abdomen, pelvis at 120 kVP to evaluate the thoracoabdominal aorta and iliac vasculature. Scan protocol was optimized to minimize radiation exposure. The total radiation exposure was 1817 DLP and 25.4 mSv. Images were reconstructed and analyzed on a [employer] Workstation. Procedure Note Praful Bowen MD - [...] in a spiral gated mode with limited [id number] followed by gated high pitch spiral CTA of the chest, abdomen, pelvis at 120 kVP to evaluate the thoracoabdominal aorta and iliac vasculature. Scan protocol was optimized to minimize radiation exposure. The total radiation exposure was 1817 DLP and 25.4 mSv. Images were reconstructed and analyzed on a [employer] Workstation. IMPRESSION: 1. See below for TAVR [...] aortic root calcification. 3. There are significant quartz valley coronary calcifications. 4. The arch vessel branching pattern is normal. 5. The suprarenal abdominal aorta is moderately calcified; infrarenal abdominal aorta is severely calcified 6. Widely patent origins of celiac trunk, superior mesenteric artery and inferior mesenteric artery. Single bilateral renal arteries with widely patent origins. 7. There is no acute aortic pathology, such as dissection, intramural hematoma, or contained rupture. MEASUREMENTS: Audiology Technician dimensions of the thoracoabdominal aorta are as [...] to follow separately PRAFUL GORDON MD Deshawn Yael Guevara VRT MECHANIC IMG CT ORDERABLES * Hepatitis C antibody (05/13/2020 8:50 AM [facility]) Pathologist [facility] Hepatitis C Antibody (External) Negative Negative LABDE SCAN Blood specimen (specimen) 05/13/2020 8:50 AM [facility] [employer]UC[facility] Narrative SAMANTHA PFT - 05/15/2020 7:27 AM [facility] [employer] Verified by Cruzito Marlow on 05/15/2020. Patient Reported LAB - BLOOD ORDERABL ES SAMANTHA PFT LABDE SCAN * Albumin Random Urine Quantitative with Creat Ratio (05/17/2019 10:05 AM [facility]UCATION) Pathologist [facility] Microalbumin Urine (External) 1 mg/dl LABDE SCAN Creatinine Urine mg/dL (External) 106 mg/dl LABDE SCAN Microalbumin Urine mg/g Cr (External) 9 0 - 30 mg/g LABDE SCAN Urine specimen (specimen) 05/17/2019 10:05 AM [facility]UC[facility] Narrative AMNAE PFT - 05/23/2019 7:16 AM [facility] Verified by Pedrito Stallworth on 05/23/2019. Patient Reported LAB - URINE ORDERABL ES SAMANTHA PFT LABDE SCAN * COLONOSCOPY (03/31/2017 10:57 AM DEAN OF EDUCATION) Pathologist [facility] COLONOSCOPY [address] [place] [id number] [phone] ? Endoscopy Department Patient Name: Lito Mora [...] of the exam. Signature of teaching physician [id number] Ballard MD Number of Addenda: 0 Note Initiated On: 03/31/2017 10:57 AM Scope In: Scope Out: RADIOLOGY RESULTS 03/31/2017 10:5 7 AM [facility]ATION Freddy Dumont MD PROCEDURES RADIOLOGY RESULTS * TSH (07/02/2016 3:42 PM CDT) TSH 0.95 0.40 - 4.00 mU/L [facility] Blood specimen (specimen) 07/02/2016 3:42 PM CDT 07/02/2016 4:14 PM CDT Angela Dias MD LAB - BLOOD ORDERAB LES [facility] [address] [place] [address] from Last 3 Months or Most Recently Relevant to Health Maintenance Additional Health Concerns Infection Onset Date 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/16 urine, 07/10/16 rectal swab 06/21/2016 06/21/2016 Advance Directives For more information, please contact: [phone] * Full Code (Latest Code Status on [...] 3:12 PM 11/15/2016 8:38 PM Care Teams Laboratory Assistant Relationship Specialty Start Date End Date Rubén Boyle MD PCP - General Family Practice 03/08/16 Pamela Blanco NP [facility] [address] [place], [place] [address] Referring Physician 07/13/16 Pedro Segura MD [facility] [address] [place], [place] [address] Nephrology 10/03/16 Freddy Craft MD [address] [place] [id number] Assigned Gastroenterology Provider 02/08/20 Deshawn Guevara NP [address] [facility] [address] [place], [place] [address] Assigned Heart and Vascular Provider 01/09/22 Andressa Ruiz PA-C [address] [facility] [address] [place], [place] [address] Physician Master Planner Endocrinology, Diabetes, and Metabolism 03/01/22 Suzan Harry MD [address] [place], [place] [address] Nephrology 06/30/23 Yasmeen Powers MD [address] [place], [place] [address] Nephrology 10/24/23 Yasmeen Powers MD [address] [place] [address] Assigned Nephrology Provider 11/08/23
--- OUTSIDE RECORDS SUMMARY | 2024-01-17 16:40 | XMS_ITS | Clinical Summary ---
Author Organization [facility] Address [address] [place] [address] Care Team Providers Care Residential Construction Instructor Name Role Phone Rubén Boyle MD Primary Care Provider Pamela Blanco CAP LINING MACHINE OPERATOR Unavailable Pedro Segura MD Unavailable Freddy Craft MD Unavailable Deshawn Guevara CAP LINING MACHINE OPERATOR Unavailable Andressa Ruiz-C Unavailable Suzan Harry MD Unavailable [phone] Yasmeen Powers MD Unavailable Yasmeen Powers MD Unavailable Allergies Active Allergy [...] (PEN NEEDLES 08/31) 31G X 8 MM [facility] For administering insulin at home QID. 7 [...] migh t be different from the original. [facility] in [place], [place] Fax #: [phone] Pharm - M [facility]. Problem Noted Date Diagnosed Date [...] Type Department Care Team Description 01/11/2024 Telephone [facility] [address] [place] [phone] Felipa Raya, tire and lube technician 01/03/2024 MyC Medical Advice [facility] [address] [address] Calli Hall RN 12/28/2023 Telephone [facility] [address] [place] [phone] Laurie Carmen LPN Prior Auth - Medication (Tacrolimus 1mg) 12/16/2023 Telephone [facility] [address] [place] [phone] Malinda Alves, tire and lube technician Immunosuppression Management 12/13/2023 External Order Results [facility]ly [facility] [address] [place] [address] Outside, Provider 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) 11/18/2023 Orders Only [facility] [address] [address] Freddy Craft MD 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) (Primary Dx) 10/24/2023 Telephone [facility] [address] [place] [phone] Felipa Raya, RN Appointment 10/18/2023 Telephone [facility] [address] [phone] Mónica Suarez Maira Prior Auth - Medication (Azathioprine 50 mg PA Not Needed) 10/18/2023 Telephone [facility] [address] [phone] Mónica Suarez Maira Prior Auth - Medication (Tacrolimus PA Not Needed) 10/18/2023 Telephone [facility] [address] [place] [phone] Laurie Carmen LPN 10/17/2023 Orders Only [facility] [address] [address] Felipa Raya RN 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 transplant (Primary Dx) from Last 3 Months Immunizations Name Administration [...] DT Respiratory Rate 14 03/02/2022 4:40 AM PROJECT LEAD Oxygen Saturation 96% 10/11/2023 11:30 AM CDT [...] - Risk 3-dose series) 2012 RSV VACCINE (1 - Risk 60-74 years 1-dose series) 2012 MEDICARE ANNUAL WELLNESS VISIT 2017 ZOSTER IMMUNIZATION (2 of 2) 09/26/2017 08/01/2017 FALL RISK ASSESSMENT 07/12/2019 07/11/2018, 05/31/19 18 MICROALBUMIN 05/17/2020 05/17/2019, 11/10/2016, 11/15/2016 DTAP/TDAP/TD IMMUNIZATION (2 - Td or [...] 05/13/2020 , 07/10/2016, 03/29/2016 URINALYSIS Completed 02/25/2022, 07/0 10/2021, 09/12/2019, Additional history exists LUNG CANCER SCREENING [...] this topic Medical Devices Implanted Type Area Bank Runner Device Identifier Shelf Expiration Date Model / Serial / Lot Stent Coronary Gelacio Synergy Xd Mr Us [id number] - [id number] Implanted:Qty: 1 on 02/12/2022 at [facility] Stent Drug Eluting (GELACIO) [employer] 03/09/2023 [id number] / / [id number] Stent Coronary Gelacio Synergy Xd Mr Us [id number] - [id number] Implanted:Qty: 1 on 02/12/2022 at [facility] Stent Drug Eluting (GELACIO) [employer] 03/16/2023 [id number] / / [id number] Closure Angioseal 6fr [id number] - [id number] Implanted:Qty: 1 on 02/12/2022 at [facility] [employer] 11/15/2022 [id number] / / [id number] Closure Angioseal 6fr [id number] - [id number] Implanted:Qty: 1 on 02/12/2022 at [facility] [employer] 11/15/2022 [id number] / / [id number] Closure Angioseal 6fr [id number] - [id number] Implanted:Qty: 1 on 02/24/2022 at [facility] [employer] 09/15/2022 [id number] / / [id number] Explanted Type Area Bank Runner Device Identifier Shelf Expiration Date Model / Serial / Lot Stent Ureteral Soft Universa [id number] Us-518 [id number] Implanted:Qty: 1 on 07/11/2016 by Aime Vu MD at [facility] Explanted:Qty: 1 on 08/19/2016 by Aime Vu MD at [facility] Stent N/A: Ureter [employer] 02/12/2019 US-518 / / [id number] Procedures Procedure Name Priority Date/Time Associated Diagnosis Comments TACROLIMUS BY TANDEM MASS SPECTROMETRY Routine 12/13/2023 12:00 AM CDT 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) CBC WITH PLATELETS Routine 09/30/2023 9: 40 AM CDT 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) BASIC METABOLIC PANEL Routine 09/30/2023 9:40 AM CDT 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) HEPATIC FUNCTION PANEL Routine 04/05/2023 12:30 PM PROJECT LEAD 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) LIPID PROFILE Routine 01/31/2023 8:54 AM CDT S/P TAVR (transcatheter aortic valve replacement) 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 UA MACROSCOPIC WITH REFLEX TO MICRO AND CULTURE Routine 02/25/2022 9:[address] ABDOMEN PELVIS W/O CONTRAST STAT 02/25/2022 12:10 AM PROJECT LEAD HEMOGLOBIN A1C Routine 02/24/2022 9:[address] ANGIOGRAM TAVR Routine 01/13/2022 12: 33 PM CDT Other ill-defined heart diseases Severe aortic stenosis HEPATITIS C ANTIBODY Routine 05/13/2020 8:50 AM PROJECT LEAD ALBUMIN RANDOM URINE QUANTITATIVE Routine 05/17/2019 10:05 AM PROJECT LEAD COLONOSCOPY Routine 03/31/2017 10:57 AM PROJECT LEAD TSH STAT 07/02/2016 3:42 PM CDT from Last 3 Months or Most Recently Relevant to Health Maintenance Results * Tacrolimus by Tandem Mass Spectrometry (12/13/2023 12:00 AM CDT) Tacrolimus(FK-5 06) (External) 8.2 5.0 - 15.0 ng/mL NON-INTERFACED (ONBASE SCANS) Blood BLOOD SPECIMEN / Unknown 12/13/2023 Subhash SINGH PFT - 12/16/2023 11:58 AM CDT Verified [...] Performing Organization Address City/[facility] [address]/[facility] Co de Phone Number SAMANTHA PFT NON-INTERFACED (ONBASE SCANS) * Hepatic panel (04/05/2023 12:30 PM PROJECT LEAD) Pathologist [facility] Protein Total (External) 6.3 6.0 - 8.3 [...] BLOOD SPECIMEN / Unknown 04/05/2023 12:30 PM PROJECT LEAD Narrative AMNAE PFT - 04/07/2023 6:33 AM PROJECT LEAD Verified by Yamil Santo on 04/07/2023. Freddy Dumont MD LAB - BLOOD ORD ERABLES [facility] NON-INTERFACED (ONBASE SCANS) * (ABNORMAL) Lipid Profile (01/31/2023 8:54 AM CDT) Pathologist [facility] Cholesterol 104 <200 mg/dL 01/31/2023 9:30 AM CDT [facility] Triglycerides 225(H) <150 mg/dL 01/31/2023 9:30 AM CDT [facility] Direct Measure HDL 33(L) >=40 mg/dL 01/31/2023 9:30 AM CDT [facility] LDL Cholesterol Calculated 26 <=100 mg/dL 01/31/2023 9:30 AM CDT [facility] Non HDL Cholesterol 71 <130 mg/dL 01/31/2023 9:30 AM CDT [facility] Blood STRUCTURE OF LEFT UPPER LIMB / Unknown Venipuncture / Unknown 01/31/2023 8:54 AM CDT 01/31/2023 8:57 AM CDT Narrative [facility] - 01/31/2023 9:30 [...] than or equal to 220 mg/dL Deshawn Yael Guevara NP LAB - BLOOD ORDERA BLES [facility] [place] [address] [facility] 1st [place] [address] * (ABNORMAL) UA reflex to Microscopic and Culture (02/25/2022 9:55 PM PROJECT LEAD) Color Urine Yellow Colorless, Straw, Light Yellow, Yellow 02/25/2022 10:20 PM PROJECT LEAD [facility] Appearance Urine Clear Clear 02/26/20 10:20 PM PROJECT LEAD [facility] Glucose Urine 100(A) Negative mg/dL 02/25/2022 10:20 PM PROJECT LEAD [facility] Bilirubin Urine Negative Negative 10:20 PM PROJECT LEAD [facility] Ketones Urine 20(A) Negative mg/dL 02/25/2022 10:20 PM PROJECT LEAD [facility] Specific [place] Urine 1.026 1.003 - 1.035 02/25/2022 10:20 PM PROJECT LEAD [facility] Blood Urine Negative Negative 02/25/2022 10:20 PM PROJECT LEAD [facility] pH Urine 5.0 5.0 - 7.0 02/25/2022 10:20 PM PROJECT LEAD [facility] Protein Albumin Urine 10(A) Negative mg/dL 02/25/2022 10:20 PM PROJECT LEAD [facility] Urobilinogen Urine Normal Normal, 2.0 mg/dL 02/25/2022 10:20 PM PROJECT LEAD [facility] Nitrite Urine Negative Negative 02/25/2022 10:20 PM PROJECT LEAD [facility] Leukocyte Esterase Urine Negative Negative 02/25/2022 10:20 PM PROJECT LEAD [facility] Mucus Urine Present(A) None Seen /LPF 02/25/2022 10:20 PM PROJECT LEAD [facility] RBC Urine <1 <=2 /HPF 02/25/2022 10:20 PM PROJECT LEAD [facility] WBC Urine 1 <=5 /HPF 02/25/2022 10:20 PM PROJECT LEAD [facility] Squamous Epithelials Urine <1 <=1 /HPF 02/25/2022 10:20 PM PROJECT LEAD [facility] Hyaline Casts Urine 4(H) <=2 /LPF 02/25/2022 10:20 PM PROJECT LEAD [facility] Urine URINE SPECIMEN OBTAINED BY CLEAN CATCH PROCEDURE / Unknown Non-blood Collection / Unknown 02/25/2022 9:55 PM PROJECT LEAD 02/25/2022 10:01 PM PROJECT LEAD Narrative [facility] - 02/25/2022 10:20 PM PROJECT LEAD Urine Culture not indicated Rubén Zambrano MD LAB - URINE ORDERABL ES [facility] Core Lab [address] [facility], Room [address] [place] [address], [facility] [phone] * CT Abdomen Pelvis w/o Contrast (02/25/2022 12:10 AM PROJECT LEAD) Anatomical Region Laterality Modality Abdomen/Pelvis, SUBRAD CT MINA DY, UMP CT ABDOMEN PELVIS, RAD CT Computed Tomography Impressions 02/25/2022 8:18 AM PROJECT LEAD IMPRESSION: 1. 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 2. Colonic diverticulosis without evidence of acute diverticulitis. 3. No intra-abdominal findings to suggest etiology for patient's symptoms. I have personally reviewed the examination and initial interpretation and I agree with the findings. SEA WOOD MD Narrative 02/25/2022 8:18 AM PROJECT LEAD EXAMINATION: CT ABDOMEN PELVIS W/O CONTRAST, 02/25/2022 [...] lesions. Unremarkable spleen. No adrenal nodules. Atrophic hopi kidneys with simple renal cyst in the [...] to same day endovascular procedure. Procedure Note eSa Wood MD - 02/25/2022 EXAMINATION: CT ABDOMEN [...] lesions. Unremarkable spleen. No adrenal nodules. Atrophic hopi kidneys with simple renal cyst in the [...] * (ABNORMAL) Hemoglobin A1c (02/24/2022 9:42 PM PROJECT LEAD) Hemoglobin A1C 5.7(H) <5.7 % 02/24/2022 11:58 PM PROJECT LEAD [facility] Comment: Normal <5.7% Prediabetes 5.7-6.4% ?? Diabetes 6.5% or higher Note: Adopted from ADA consensus guidelines. Blood STRUCTURE OF LEFT HAND / Unknown Venipuncture / Unknown 02/24/2022 9:42 PM PROJECT LEAD 02/24/2022 9:55 PM PROJECT LEAD Theresa Ayala APRN LABOR DELIVERY RN LAB - BLOOD OR DERABLES [facility] Core Lab [address] [facility], Room [address] [address], [facility] [phone] * CT Angiogram TAVR (01/13/2022 12:33 PM CDT) Anatomical Region Laterality Modality Lower Extremity, [facility] CT CTA Comp uted Tomography Impressions 01/13/2022 [...] aortic root calcification. 3. ??There are significant hopi coronary calcifications. 4. ??The arch vessel branching pattern is normal. 5. ??The suprarenal abdominal aorta is moderately calcified; infrarenal abdominal aorta is severely calcified 6. ??Widely patent origins of celiac trunk, superior mesenteric artery and inferior mesenteric artery. ??Single bilateral renal arteries with widely patent origins. 7. ??There is no acute aortic pathology, such as dissection, intramural hematoma, or contained rupture. MEASUREMENTS: Track Man dimensions of the thoracoabdominal aorta are as [...] in a spiral gated mode with limited [id number]-qh-[id number] followed by gated high pitch spiral CTA of the chest, abdomen, pelvis at 120 kVP to evaluate the thoracoabdominal aorta and iliac vasculature. Scan protocol was optimized to minimize radiation exposure. The total radiation exposure was 1817 DLP and 25.4 mSv. Images were reconstructed and analyzed on a Seer Workstation. Procedure Note Praful Bowen MD - [...] in a spiral gated mode with limited tjcri-ul-poer followed by gated high pitch spiral CTA of the chest, abdomen, pelvis at 120 kVP to evaluate the thoracoabdominal aorta and iliac vasculature. Scan protocol was optimized to minimize radiation exposure. The total radiation exposure was 1817 DLP and 25.4 mSv. Images were reconstructed and analyzed on a Seer Workstation. IMPRESSION: 1. See below for TAVR [...] aortic root calcification. 3. There are significant hopi coronary calcifications. 4. The arch vessel branching pattern is normal. 5. The suprarenal abdominal aorta is moderately calcified; infrarenal abdominal aorta is severely calcified 6. Widely patent origins of celiac trunk, superior mesenteric artery and inferior mesenteric artery. Single bilateral renal arteries with widely patent origins. 7. There is no acute aortic pathology, such as dissection, intramural hematoma, or contained rupture. MEASUREMENTS: Track Man dimensions of the thoracoabdominal aorta are as [...] follow separately PRAFUL GORDON MD Deshawn Guevara CAP LINING MACHINE OPERATOR IMG CT ORDERABLES * Hepatitis C antibody (05/13/2020 8:50 AM PROJECT LEAD) Hepatitis C Antibody (External) Negative Negative LABDE SCAN Blood specimen (specimen) 05/13/2020 8:50 AM PROJECT LEAD Subhash SINGH PFT - 05/15/2020 7:27 AM PROJECT LEAD Verified by Cruzito Marlow on 05/15/2020. Patient Reported LAB - BLOOD ORDERABL ES SAMANTHA PFT LABDE SCAN * Albumin Random Urine Quantitative with Creat Ratio (05/17/2019 10:05 AM PROJECT LEAD) Microalbumin Urine (External) 1 mg/dl LABDE SCAN Creatinine Urine mg/dL (External) 106 mg/dl LABDE SCAN Microalbumin Urine mg/g Cr (External) 9 0 - 30 mg/g LABDE SCAN Urine specimen (specimen) 05/17/2019 10:05 AM PROJECT LEAD Narrative SAMANTHA KEMP - 05/23/2019 7:16 AM PROJECT LEAD Verified by Pedrito Stallworth on 05/23/2019. Patient Reported LAB - URINE ORDERABL ES SAMANTHA KEMP LABDE SCAN * COLONOSCOPY (03/31/2017 10:57 AM PROJECT LEAD) COLONOSCOPY [address] [address] [phone] ? Endoscopy Department Patient Name: Lito Mora ? Procedure Date: 03/31/2017 10:57 AM ? Date of : 1950 ?Admit Type: Outpatient Age: 66 ?Gender: Male Note Status: Finalized ?Attending MD: Freddy Ballard MD Total Sedation Time: ? Procedure: ? Colonoscopy Indications: ? Clinically significant diarrhea of unexplained origin, ? Weight loss Providers: ? Freddy Ballard MD Referring : ? Medicines: ? Midazolam 3 mg IV, [...] of the exam. 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 [address] [place] [address] Referring Physician 07/13/[address] [facility] [address] [place], [place] [address] Nephrology 10/03/16 Freddy Craft MD [address] [facility] [place], [place] [address] Assigned Gastroenterology Provider 02/08/20 Deshawn Guevara NP [address] [facility] [address] [place], [place] [address] Assigned Heart and Vascular Provider 01/09/22 Andressa Ruiz PA-C 420 [facility] [address]03 [place], [place] [address] Physician Compensation Director Endocrinology, Diabetes, and Metabolism 03/01/22 Suzan Harry MD [address] [place] [address] Nephrology 06/30/23 Yasmeen Powers MD 500 [place] [address] Nephrology 10/24/23 Yasmeen Powers MD [address] [place] [address] Assigned Nephrology Provider 11/08/23
--- OUTSIDE RECORDS SUMMARY | 2024-01-17 16:41 | XMS_ITS | Encounter Summary ---
Author Organization [place] Address [address] [place] [address] Care Team Providers Care Asbestos Coverer Name Role Phone Rubén Boyle MD Primary Care Provider Pamela Blanco POLYMERIZATION KETTLE OPERATOR Unavailable [phone] Pedro Segura MD Unavailable Freddy Craft MD Unavailable [phone] Abdifatah Van MD Unavailable Nicole Carranza POLYMERIZATION KETTLE OPERATOR Unavailable Andressa RuizC Unavailable Rubén Gunter [facility] Unavailable Andressa Ruiz-C Unavailable Suzan Harry MD Unavailable [phone] Yasmeen Powers MD Unavailable Yasmeen Powers MD Unavailable [phone] Encounter Details Date Type Department Care Team (Late st Contact Info) Description 04/06/2023 External Order Results [facility] [address] [place] [address] Outside, Provider 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) [...] BASIC METABOLIC PANEL Routine 04/06/2023 10:50 AM LINEN CLERK 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) documented in this encounter Results * (ABNORMAL) Basic metabolic panel (04/06/2023 10:50 AM LINEN CLERK) Sodium (External) 138 135 - 149 mmol/L [...] BLOOD SPECIMEN / Unknown 04/06/2023 10:50 AM LINEN CLERK Narrative SAMANTHA PFT - 04/08/2023 6:41 AM LINEN CLERK Verified by Yamil Santo on 04/08/2023. Freddy [...] documented as of this encounter Care Teams Asbestos Coverer Relationship Specialty Start Date End Date Rubén Boyle MD PCP - General Family Practice 03/08/16 Pamela Blanco NP [facility] [address] [place] [address] Referring Physician 07/13/16 Pedro Segura MD [facility] [address] [place] [address] Nephrology 10/03/16 Freddy Craft MD [address] [facility] [address] [place] [address] Assigned Gastroenterology Provider 02/08/20 Abdifatah Van MD [address] [facility] [address] [place] [address] Assigned Nephrology Provider 07/13/20 11/07/23 Nicole Carranza NP 420 [facility] [address] [place] [address] Assigned Heart and Vascular Provider 01/09/22 Andressa Ruiz PA-C 420 [facility] 803 [place] [address] Physician Research Nutritionist Endocrinology, Diabetes, and Metabolism 03/01/22 Rubén Gunter [facility] 909 [place] [address] Assigned MTM Pharmacist 02/27/22 Andressa Ruiz PA-C 420 [facility] [address]03 [place] [address] Assigned Endocrinology Provider 03/13/22 09/07/23 Suzan Harry MD [address] [place] [address] Nephrology 06/30/23 Yasmeen Powers MD 500 [place] [address] Nephrology 10/24/23 Yasmeen Powers MD 500 [place] [address] Assigned Nephrology Provider 11/08/23 documented as of this encounter
--- OUTSIDE RECORDS SUMMARY | 2024-01-17 16:41 | XMS_ITS | Encounter Summary ---
Author Organization [facility] Address [address] [place] [address] Care Team Providers Care Travel Journalist Name Role Phone Rubén Boyle MD Primary Care Provider Pamela Blanco REHANGER Unavailable Pedro Segura MD Unavailable [phone] Freddy Craft MD Unavailable Abdifatah Van MD Unavailable Nicole Carranza REHANGER Unavailable Andressa RuizC Unavailable Rubén Gunter [facility] Unavailable Andressa Ruiz-C Unavailable Suzan Harry MD Unavailable [phone] Yasmeen Powers MD Unavailable Yasmeen Powers MD Unavailable [phone] Encounter Details Date Type Department Care Team (Late st Contact Info) Description 04/07/2023 External Order Results [facility] [address] [place] [address] Outside, Provider 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) [...] BASIC METABOLIC PANEL Routine 04/07/2023 9:30 AM INSURANCE SALES PRODUCER 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 Freddy [...] documented as of this encounter Care Teams Travel Journalist Relationship Specialty Start Date End Date Rubén oByle MD PCP - General Family Practice 03/08/16 Pamela Blanco, REHANGER [facility] [address] [place], [place] [address] Referring Physician 07/13/16 Pedro Segura MD [facility] [address] [place], [place] [address] Nephrology 10/03/16 Freddy Craft MD [address] [facility] [place], [place] [address] Assigned Gastroenterology Provider 02/08/20 Abdifatah Van MD [address] [facility] [address] [place], [place] [address] Assigned Nephrology Provider 07/13/20 11/07/23 Nicole Carranza NP 420 [facility] [address] [place], [place] [address] Assigned Heart and Vascular Provider 01/09/22 Andressa Ruiz PA-C 420 [facility] 803 [place] [address] Physician Cleaning Professional Endocrinology, Diabetes, and Metabolism 03/01/22 Rubén Gunter [facility] [address] [place] [address] Assigned MTM Pharmacist 02/27/22 Andressa Ruiz PA-C 420 [facility] 803 [place] [address] Assigned Endocrinology Provider 03/13/22 09/07/23 Suzan Harry MD [address] [place] [address] Nephrology 06/30/23 Yasmeen Powers MD 500 [place] [address] Nephrology 10/24/23 Yasmeen Powers MD [address] [place] [address] Assigned Nephrology Provider 11/08/23 documented as of this encounter
--- OUTSIDE RECORDS SUMMARY | 2024-01-17 16:41 | XMS_ITS | Encounter Summary ---
Author Organization [place] Address [address] [place] [address] Care Team Providers Care Supply Chain Logistics Manager Name Role Phone Rubén Boyle MD Primary Care Provider Pamela Blanco GATE CUTTER Unavailable Pedro Segura MD Unavailable Freddy Craft MD Unavailable Abdifatah Van MD Unavailable Nicole Carranza GATE CUTTER Unavailable Andressa Ruiz-C Unavailable Rubén Gunter [facility] Unavailable Andressa Ruiz-C Unavailable Suzan Harry MD Unavailable [phone] Yasmeen Powers MD Unavailable Yasmeen Powers MD Unavailable [phone] Encounter Details Date Type Department Care Team (Late st Contact Info) Description 01/04/2023 MyC Medical Advice [facility] 9[address] [place] [address] Calli Hall, RN Social History [...] documented as of this encounter Care Teams Supply Chain Logistics Manager Relationship Specialty Start Date End Date Rubén Boyle MD PCP - General Family Practice 03/08/16 Pamela Blanco NP [facility] [address] [place], [place] 502547 Referring Physician 07/13/16 Pedro Segura MD [facility] [address] [place], [place] 432827 Nephrology 10/03/16 Freddy Craft MD 516 [facility] PWB [address] [place], [place] 9[address]385 Assigned Gastroenterology Provider 02/08/20 Abdifatah Van MD 717 [facility] [address] [place], [place] 9[address]794 Assigned Nephrology Provider 07/13/20 11/07/23 Nicole Carranza NP 420 [facility] 508 [place] [address] Assigned Heart and Vascular Provider 01/09/22 Andressa Ruiz PA-C 420 [facility] 803 [place] [address] Physician Senior Sales Operations Manager Endocrinology, Diabetes, and Metabolism 03/01/22 Rubén Gunter [facility] [address] [place] [address] Assigned MTM Pharmacist 02/27/22 Andressa Ruiz PA-C 420 [facility] 803 [place] [address] Assigned Endocrinology Provider 03/13/22 09/07/23 Suzan Harry MD 420 [place] [address] Nephrology 06/30/23 Yasmeen Powers MD 500 [place] [address] Nephrology 10/24/23 Yasmeen Powers MD 500 [place] [address] Assigned Nephrology Provider 11/08/23 documented as of this encounter
--- OUTSIDE RECORDS SUMMARY | 2024-01-17 16:41 | XMS_ITS | Encounter Summary ---
Author Organization [place] Address [address] [place] [address] Care Team Providers Care Deck Supervisor Name Role Phone Rubén Boyle MD Primary Care Provider Pamela Blanco DROP HAMMER SET UP OPERATOR Unavailable [phone] Pedro Segura MD Unavailable [phone] Freddy Craft MD Unavailable Abdifatah Van MD Unavailable Nicole Carranza DROP HAMMER SET UP OPERATOR Unavailable Andressa Ruiz-C Unavailable [phone] Rubén Gunter [facility] Unavailable Andressa Ruiz-C Unavailable Suzan Harry MD Unavailable [phone] Yasmeen Powers MD Unavailable [phone] Yasmeen Powers MD Unavailable [phone] Encounter Details Date Type Department Care Team (Late st Contact Info) Description 01/13/2023 MyC Medical Advice [facility] 909 [place] [address] Lashanda Hsieh, [facility] Social History Tobacco Use Types Packs/Day [...] documented as of this encounter Care Teams Deck Supervisor Relationship Specialty Start Date End Date Rubén Boyle MD PCP - General Family Practice 03/08/16 Pamela Blanco DROP HAMMER SET UP OPERATOR [facility] [address] [place] [address] Referring Physician 07/13/16 Pedro Segura MD [facility] [address] [place] [address] Nephrology 10/03/16 Freddy Craft MD 516 [facility] [address] [place], [place] 945155 Assigned Gastroenterology Provider 02/08/20 Abdifatah Van MD 717 [facility] [address] [place], [place] 740924 Assigned Nephrology Provider 07/13/20 11/07/23 Nicole Carranza NP 420 [facility] 508 [place] [address] Assigned Heart and Vascular Provider 01/09/22 Andressa Ruiz PA-C 420 [facility] 803 [place] [address] Physician Auto Job Estimator Endocrinology, Diabetes, and Metabolism 03/01/22 Rubén Gunter [facility] [address] [place] [address] Assigned MTM Pharmacist 02/27/22 Andressa Ruiz PA-C 420 [facility] 803 [place] [address] Assigned Endocrinology Provider 03/13/22 09/07/23 Suzan Harry MD [address] [place] [address] Nephrology 06/30/23 Yasmeen Powers MD 500 [place] [address] Nephrology 10/24/23 Yasmeen Powers MD 500 [place] [address] Assigned Nephrology Provider 11/08/23 documented as of this encounter
--- OUTSIDE RECORDS SUMMARY | 2024-01-17 16:41 | XMS_ITS | Encounter Summary ---
Author Organization [place] Address [address] [place] [address] Care Team Providers Care Chief Juvenile Probation Officer Name Role Phone Rubén Boyle MD Primary Care Provider Pamela Blanco POWER PLANT OPERATOR Unavailable Pedro Segura MD Unavailable [phone] Freddy Craft MD Unavailable [phone] Abdifatah Van MD Unavailable Nicole Carranza POWER PLANT OPERATOR Unavailable Andressa Ruiz-C Unavailable [phone] Suzan Harry MD Unavailable [phone] Reason for Visit * Reason Comments RECHECK K/P POST RETURN TXP NEPH - Return, Post Kidney Transplant Follow up, scheduled with patient Encounter Details Date Type Department Care Team (Late st Contact Info) Description 10/11/2023 11:30 AM CDT Office Visit [facility] 909 [place] [address] Suzan Harry MD [address] [place] [address] Yasmeen Powers MD [address] [place] [address] Type 2 diabetes mellitus with diabetic neuropathy, with long-term current use of insulin (H) (Primary Dx); Status post kidney transplant; Hypomagnesemia; HTN, kidney transplant related; Immunosuppressed status (H); 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); Stage 3a [...] (<0.2 grams) - DSA Hx: Moderate DSA (1030-8275 mfi) to DR51 - Last cPRA: Not [...] (PEN NEEDLES 08/31) 31G X 8 MM [facility] For administering insulin at home QID. multivitamin, [...] redirect to the Timeline version of the [employer] SmartLink. 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 Stage 3a chronic kidney disease (H) 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 transplant Aftercare following organ transplant Weakness of both lower extremities documented in this encounter Additional Health Concerns Infection Onset Date Last Indicated Resolved Time 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/16 urine, 07/10/16 rectal swab 06/21/2016 06/21/2016 documented as of this encounter Care Teams Chief Juvenile Probation Officer Relationship Specialty Start Date End Date Rubén Boyle MD PCP - General Family Practice 03/08/16 Pamela Blanco NP [facility] [address] [place] [address] Referring Physician 07/13/16 Pedro Segura MD [facility] [address] [place] [address] Nephrology 10/03/16 Freddy Craft MD [address] [place] [address] 001495 Assigned Gastroenterology Provider 02/08/20 Abdifatah Van MD [address] [facility] [address] [place], [place] 858464 Assigned Nephrology Provider 07/13/20 11/07/23 Nicole Carranza NP 420 [facility] 508 [place], [place] 654835 Assigned Heart and Vascular Provider 01/09/22 Andressa Ruiz PA-C 420 [facility] 803 [place] [address] Physician Labview Programmer Endocrinology, Diabetes, and Metabolism 03/01/22 Suzan Harry MD 420 [place], [place] 5[address] Nephrology 06/30/23 documented as of this encounter
--- OUTSIDE RECORDS SUMMARY | 2024-01-17 16:41 | XMS_ITS | Encounter Summary ---
Author Organization [place] Address [address] [place] [address] Care Team Providers Care Cafe Helper Name Role Phone Rubén Boyle MD Primary Care Provider [phone] Pamela Blanco WELDING MACHINE OPERATOR HELPER ARC Unavailable [phone] Pedro Segura MD Unavailable [phone] Freddy Craft MD Unavailable Abdifatah Van MD Unavailable Nicole Carranza WELDING MACHINE OPERATOR HELPER ARC Unavailable Anderssa RuizC Unavailable Rubén Gunter [facility] Unavailable Andressa Ruiz-C Unavailable Suzan Harry MD Unavailable [phone] Yasmeen Powers MD Unavailable Yasmeen Powers MD Unavailable [phone] Encounter Details Date Type Department Care Team (Late st Contact Info) Description 06/28/2023 External Order Results [facility] [address] [place] [address] Outside, Provider Social History Tobacco Use Types [...] as of this encounter Care Teams Cafe Helper Relationship Specialty Start Date End Date Rubén Boyle MD PCP - General Family Practice 03/08/16 Pamela Blanco NP [facility] [address] [place], [place] 8[address] Referring Physician 07/13/16 Pedro Segura MD [facility] [address] [place], [place] 147[address] Nephrology 10/03/16 Freddy Craft MD 516 [facility] 2A [place] [address] Assigned Gastroenterology Provider 02/08/20 Abdifatah Van MD [address] [facility] [address] [place] [address] Assigned Nephrology Provider 07/13/20 11/07/23 Nicole Carranza NP 420 [facility] 508 [place] [address] Assigned Heart and Vascular Provider 01/09/22 Andressa Ruiz PA-C 420 [facility] 803 [place] [address] Physician Frame Pulley Mortising Machine Operator Endocrinology, Diabetes, and Metabolism 03/01/22 Rubén Gunter [facility] 909 [place] [address] Assigned MTM Pharmacist 02/27/22 Andressa Ruiz PA-C 420 [facility] 803 [place] [address] Assigned Endocrinology Provider 03/13/22 09/07/23 Suzan Harry MD 420 [place] [address] Nephrology 06/30/23 Yasmeen Powers MD 500 [place] [address] Nephrology 10/24/23 Yasmeen Powers MD 500 [place] [address] Assigned Nephrology Provider 11/08/23 documented as of this encounter
--- OUTSIDE RECORDS SUMMARY | 2024-01-17 16:41 | XMS_ITS | Encounter Summary ---
Author Organization [place] Address [address] [place] [address] Care Team Providers Care Printed Circuit Board Pcb Draftsman Name Role Phone Rubén Boyle MD Primary Care Provider Pamela Blanco RECORDIST Unavailable [phone] Pedro Segura MD Unavailable [phone] Freddy Craft MD Unavailable [phone] Abdifatah Van MD Unavailable Nicole Carranza RECORDIST Unavailable [phone] Andressa Ruiz-C Unavailable Suzan Harry MD Unavailable [phone] Encounter Details Date Type Department Care Team [...] documented as of this encounter Care Teams Printed Circuit Board Pcb Draftsman Relationship Specialty Start Date End Date Rubén Boyle MD PCP - General Family Practice 03/08/16 Pamela Blanco NP [facility] [address] [place] [address] Referring Physician 07/13/16 Pedro Segura MD [facility] [address] [place], [place] 702367 Nephrology 10/03/16 Freddy Craft MD 516 [facility] [place], [place] [address] Assigned Gastroenterology Provider 02/08/20 Abdifatah Van MD [address] [facility] [address] [place], [place] 345584 Assigned Nephrology Provider 07/13/20 11/07/23 Nicole Carranza NP 420 [facility] 508 [place], [place] 0[address]45 Assigned Heart and Vascular Provider 01/09/22 Andressa Ruiz PA-C 420 [facility] 803 [place], [place] [address]265 Physician Digital Technician Endocrinology, Diabetes, and Metabolism 03/01/22 Suzan Harry MD [address] [place] [address] Nephrology 06/30/23 documented as of this encounter
--- OUTSIDE RECORDS SUMMARY | 2024-01-17 16:41 | XMS_ITS | Encounter Summary ---
Author Organization [place] Address [address] [place] [address] Care Team Providers Care Culinary Assistant Name Role Phone Rubén Boyle MD Primary Care Provider Pamela Blanco CART DRIVER Unavailable Pedro Segura MD Unavailable [phone] Freddy Craft MD Unavailable [phone] Abdifatah Van MD Unavailable Nicole Carranza CART DRIVER Unavailable Andressa RuizC Unavailable Rubén Gunter [facility] Unavailable Andressa Ruiz-C Unavailable Suzan Harry MD Unavailable [phone] Yasmeen Powers MD Unavailable Yasmeen Powers MD Unavailable [phone] Encounter Details Date Type Department Care Team (Late st Contact Info) Description 04/20/2023 External Order Results [facility] [address] [place] [address] Outside, Provider Social History Tobacco Use Types [...] TANDEM MASS SPECTROMETRY Routine 04/20/2023 10:05 AM MACHINE PRINTER documented in this encounter Results * Tacrolimus by [employer] Mass Spectrometry (04/20/2023 10:05 AM MACHINE PRINTER) Tacrolimus(FK-5 06) (External) 9.0 5.0 - 15.0 ng/mL NON-INTERFACED (ONBASE SCANS) Blood BLOOD SPECIMEN / Unknown 04/20/2023 10:05 AM MACHINE PRINTER Narrative SAMANTHA PFT - 04/25/2023 9:44 AM MACHINE PRINTER Verified by Pedrito Stallworth on 04/25/2023. 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 06/21/2016 06/21/2016 documented as of this encounter Care Teams Culinary Assistant Relationship Specialty Start Date End Date Rubén Boyle MD PCP - General Family Practice 03/08/16 Pamela Blanco NP [place] 069810 [place] [address] Referring Physician 07/13/16 Pedro Segura MD [facility] [address] [place] [address] Nephrology 10/03/16 Freddy Craft MD 516 [facility] 2[facility] [place], [place] 24[address] Assigned Gastroenterology Provider 02/08/20 Abdifatah Van MD 717 [facility] [address] [place] [address] Assigned Nephrology Provider 07/13/20 11/07/23 Nicole Carranza NP 420 [facility] 508 [place], [place] 266764[address] Assigned Heart and Vascular Provider 01/09/22 Andressa Ruiz PA-C 420 [facility] 803 [place], [place] [address] Physician Marketing [employer] Endocrinology, Diabetes, and Metabolism 03/01/22 Rubén Gunter [facility] 909 [place], [place] 08[address] Assigned MTM Pharmacist 02/27/22 Andressa Ruiz PA-C 420 [facility] 803 [place], [place] [address] Assigned Endocrinology Provider 03/13/22 09/07/23 Suazn Harry MD 420 [place], [place] [address] Nephrology 06/30/23 Yasmeen Powers MD 500 [place], [place] 0[address]285 Nephrology 10/24/23 Yasmeen Powers MD 500 [place], [place] 440815 Assigned Nephrology Provider 11/08/23 documented as of this encounter
--- OUTSIDE RECORDS SUMMARY | 2024-01-17 16:41 | XMS_ITS | Encounter Summary ---
Author Organization [place] Address [address] [place] [address] Care Team Providers Care Broadcast Chief Engineer Name Role Phone Rubén Boyle MD Primary Care Provider Pamela Blanco ENTERPRISE ARCHITECT MANAGER Unavailable Pedro Segura MD Unavailable Freddy Craft MD Unavailable Abdifatah Van MD Unavailable Nicole Carranza ENTERPRISE ARCHITECT MANAGER Unavailable Andressa Ruiz-C Unavailable Suzan Harry MD Unavailable [phone] Yasmeen Powers MD Unavailable Yasmeen Powers MD Unavailable Encounter Details Date Type Department Care Team (Late st Contact Info) Description 09/30/2023 External Order Results [facility] 420 [place] [address] Outside, Provider 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) [...] Mass Spectrometry (09/30/2023 9:40 AM CDT) Pathologist [facility] Tacrolimus(FK-5 06) (External) 3.0 ng/mL NON-INTERFACE D (ONBASE SCANS) Blood BLOOD SPECIMEN / Unknown 09/30/2023 9:40 AM CDT Narrative SAMANTHA PFT - 10/03/2023 12:33 PM CDT Verified by Rhiannon Cain on 10/03/2023. Freddy Dumont MD LAB - BLOOD ORD ERABLES SAMANTHA PFT NON-INTERFACED (ONBASE SCANS) * (ABNORMAL) Manual Differential (09/30/2023 9:40 AM CDT) Pathologist [facility] % Neutrophils (External) 54.1 42.0 - 72.0 [...] documented as of this encounter Care Teams Broadcast Chief Engineer Relationship Specialty Start Date End Date Rubén Boyle MD PCP - General Family Practice 03/08/16 Pamela Blanco ENTERPRISE ARCHITECT MANAGER [facility] [address] [place], [place] 983167 Referring Physician 07/13/16 Pedro Segura MD [facility] [address] [place], [place] 5[address]47 Nephrology 10/03/16 Freddy Craft MD 516 [facility] 2A [place], [place] [address]555 Assigned Gastroenterology Provider 02/08/20 Abdifatah Van MD 717 [facility] [address] [place], [place] 852914 Assigned Nephrology Provider 07/13/20 11/07/23 Nicole Carranza NP [address] [place] [address] 508 [place] [address] Assigned Heart and Vascular Provider 01/09/22 Andressa Ruiz PA-C 420 [facility] 803 [place] [address] Physician Gate Guard Endocrinology, Diabetes, and Metabolism 03/01/22 Suzan Harry MD [address] [place] [address] Nephrology 06/30/23 Yasmeen Powers MD 500 [place] [address] Nephrology 10/24/23 Yasmeen Powers MD 500 [place] [address] Assigned Nephrology Provider 11/08/23 documented as of this encounter
--- OUTSIDE RECORDS SUMMARY | 2024-01-17 16:41 | XMS_ITS | Encounter Summary ---
Author Organization [place] Address [address] [place] [address] Care Team Providers Care Executive Chairman Name Role Phone Rubén Boyle MD Primary Care Provider Pamela Blanco MECHANICAL ENGINEERING DRAFTSPERSON Unavailable Pedro Segura MD Unavailable Freddy Craft MD Unavailable Abdifatah Van MD Unavailable Nicole Carranza MECHANICAL ENGINEERING DRAFTSPERSON Unavailable Andressa Ruiz-C Unavailable Rubén Gunter [facility] Unavailable Andressa Ruiz-C Unavailable Suzan Harry MD Unavailable [phone] Yasmeen Powers MD Unavailable Yasmeen Powers MD Unavailable Encounter Details Date Type Department Care Team (Late st Contact Info) Description 03/30/2023 MyC Medical Advice [facility] Clinic 909 [place] [address] Calli Hall, RN Social History [...] documented as of this encounter Care Teams Executive Chairman Relationship Specialty Start Date End Date Rubén Boyle MD PCP - General Family Practice 03/08/16 Pamela Blanco NP [facility] [address] [place], [place] 197627 Referring Physician 07/13/16 Pedro Segura MD [facility] [address] [place], [place] 771757 Nephrology 10/03/16 Freddy Craft MD 516 [facility] [address] [place], [place] [address]24[address] Assigned Gastroenterology Provider 02/08/20 Abdifatah Van MD 717 [facility] [address] [place], [place] 197844 Assigned Nephrology Provider 07/13/20 11/07/23 Nicole Carranza NP 420 [facility] 508 [place] [address] Assigned Heart and Vascular Provider 01/09/22 Andressa Ruiz PA-C 420 [facility] 803 [place] [address] Physician Public Affairs Director Endocrinology, Diabetes, and Metabolism 03/01/22 Rubén Gunter [facility] [address] [place] [address] Assigned MTM Pharmacist 02/27/22 Andressa Ruiz PA-C 420 [facility] 803 [place] [address] Assigned Endocrinology Provider 03/13/22 09/07/23 Suzan Harry MD 420 [place] [address] Nephrology 06/30/23 Yasmeen Poewrs MD 500 [place] [address] Nephrology 10/24/23 Yasmeen Powers MD 500 [place] [address] Assigned Nephrology Provider 11/08/23 documented as of this encounter
--- OUTSIDE RECORDS SUMMARY | 2024-01-17 16:41 | XMS_ITS | Encounter Summary ---
Author Organization [place] Address [address] [place] [address] Care Team Providers Care Manager Lighting Name Role Phone Rubén Boyle MD Primary Care Provider Pamela Blanco RN INFUSION Unavailable Pedro Segura MD Unavailable Freddy Craft MD Unavailable Abdifatah Van MD Unavailable Nicole Carranza RN INFUSION Unavailable Andressa RuizC Unavailable [phone] Rubén Gunter [facility] Unavailable Andressa Ruiz-C Unavailable Suzan Harry MD Unavailable [phone] Yasmeen Powers MD Unavailable [phone] Yasmeen Powers MD Unavailable [phone] Encounter Details Date Type Department Care Team (Late st Contact Info) Description 02/22/2023 MyC Medical Advice [facility] [address] [place] [address] Jessica Dillon Social History Tobacco [...] as of this encounter Care Teams Manager Lighting Relationship Specialty Start Date End Date Rubén Boyle MD PCP - General Family Practice 03/08/16 Pamela Blanco NP [facility] [address] [place] [address] Referring Physician 07/13/16 Pedro Segura MD [facility] [address] [place], [place] 115697 Nephrology 10/03/16 Freddy Craft MD 516 [facility] [address] [place], [place] 7927[address] Assigned Gastroenterology Provider 02/08/20 Abdifatah Van MD [address] [facility] [address] [place], [place] 69[address]44 Assigned Nephrology Provider 07/13/20 11/07/23 Nicole Carranza NP 420 [facility] 508 [place] [address] Assigned Heart and Vascular Provider 01/09/22 Andressa Ruiz PA-C 420 [facility] 803 [place] [address] Physician Project Development Leader Endocrinology, Diabetes, and Metabolism 03/01/22 Rubén Gunter [facility] [address] [place] [address] 284605 Assigned MTM Pharmacist 02/27/22 Andressa Ruiz PA-C 420 [facility] 803 [place], [place] 159265 Assigned Endocrinology Provider 03/13/22 09/07/23 Suzan Harry MD 420 [place] [address] Nephrology 06/30/23 Yasmeen Powers MD 500 [place] [address] Nephrology 10/24/23 Yasmeen Powers MD 500 [place] [address] Assigned Nephrology Provider 11/08/23 documented as of this encounter
--- OUTSIDE RECORDS SUMMARY | 2024-01-17 16:41 | XMS_ITS | Encounter Summary ---
Author Organization [place] Address [address] [place] [address]. [place] [address] Care Team Providers Care Squaring Machine Operator Name Role Phone Rubén Boyle MD Primary Care Provider Pamela Blanco COVER STITCH MACHINE OPERATOR Unavailable [phone] Pedro Segura MD Unavailable Freddy Craft MD Unavailable Abdifatah Van MD Unavailable Nicole Carranza COVER STITCH MACHINE OPERATOR Unavailable [phone] Andressa Ruiz-C Unavailable [phone] Suzan Harry MD Unavailable [phone] Encounter Details Date Type Department Care Team (Late st Contact Info) Description 10/17/2023 Orders Only [facility] 909 [place] [address] Felipa Raya, [place] Kidney replaced [...] documented as of this encounter Care Teams Squaring Machine Operator Relationship Specialty Start Date End Date Rubén Boyle MD PCP - General Family Practice 03/08/16 Pamela Blanco COVER STITCH MACHINE OPERATOR [facility] [address] [place], [place] 5915[address] Referring Physician 07/13/16 Pedro Segura MD [facility] [address] [place], [place] 6[address]17 Nephrology 10/03/16 Freddy Craft MD 516 [facility] 2A [place], [place] 813875 Assigned Gastroenterology Provider 02/08/20 Abdifatah Van MD [address] [facility] [address] [place], [place] 7[address]34 Assigned Nephrology Provider 07/13/20 11/07/23 Nicole Carranza NP 420 [facility]MC 508 [place], [place] 130675 Assigned Heart and Vascular Provider 01/09/22 Andressa Ruiz PA-C 420 [facility] 803 [place] [address] Physician Telephone Service Representative Endocrinology, Diabetes, and Metabolism 03/01/22 Suzan Harry MD 420 [place] [address] Nephrology 06/30/23 documented as of this encounter
--- OUTSIDE RECORDS SUMMARY | 2024-01-17 16:41 | XMS_ITS | Encounter Summary ---
Author Organization [place] Address [address] [place] [address] Care Team Providers Care Chartered Financial Analyst Name Role Phone Rubén Boyle MD Primary Care Provider Pamela Blanco RECEIVING DOCK CHECKER Unavailable Pedro Segura MD Unavailable [phone] Freddy Craft MD Unavailable Abdifatah Van MD Unavailable Nicole Carranza RECEIVING DOCK CHECKER Unavailable [phone] Andressa Riuz PA-C Unavailable Suzan Harry MD Unavailable [phone] Yasmeen Powers MD Unavailable [phone] Reason for Visit * Reason Onset Date Comments update 09/16/2023 Encounter Details Date Type Department Care Team (Late st Contact Info) Description 09/16/2023 Telephone [facility] [address] [place] [address] Chela Meng, RN update Social [...] AM CDT Patient Call: General Route to LOG HANDLING EQUIPMENT OPERATOR Reason for call: Ileana Pharmacist from [facility] calling regarding patient's Tacrolimus level, she stated [...] documented as of this encounter Care Teams Chartered Financial Analyst Relationship Specialty Start Date End Date Rubén Boyle MD PCP - General Family Practice 03/08/16 Pamela Blanco NP [facility] [address] [place] [address] Referring Physician 07/13/16 Pedro Segura MD [facility] [address] [place], [place] 501017 Nephrology 10/03/16 Freddy Craft MD [address] [place] [address] Assigned Gastroenterology Provider 02/08/20 Abdifatah Van MD 717 [facility] [address] [place] [address] Assigned Nephrology Provider 07/13/20 11/07/23 Nicole Carranza NP 420 [facility] [address] [place] [address] Assigned Heart and Vascular Provider 01/09/22 Andressa Ruiz PA-C 420 [facility] 803 [place] [address] Physician Managing Manager Endocrinology, Diabetes, and Metabolism 03/01/22 Suzan Harry MD 420 [place], [place] [address] Nephrology 06/30/23 Yasmeen Powers MD 500 [place] [address] Nephrology 10/24/23 documented as of this encounter
--- OUTSIDE RECORDS SUMMARY | 2024-01-17 16:41 | XMS_ITS | Encounter Summary ---
Author Organization [place] Address [address] [place] [address] Care Team Providers Care Air Support Operations Operator Name Role Phone Rubén Boyle MD Primary Care Provider Pamela Blanco CMS EXPERT Unavailable Pedro Segura MD Unavailable Freddy Craft MD Unavailable Abdifatah Van MD Unavailable Nicole Carranza CMS EXPERT Unavailable Andressa Ruiz-C Unavailable Suzan Harry MD Unavailable [phone] Yasmeen Powers MD Unavailable Yasmeen Powers MD Unavailable [phone] Encounter Details Date Type Department Care Team (Late st Contact Info) Description 09/29/2023 MyC Medical Advice [facility] 9 [place] [address] Lashanda Hsieh, [facility] Social History Tobacco Use Types Packs/Day [...] as of this encounter Care Teams Air Support Operations Operator Relationship Specialty Start Date End Date Rubén Boyle MD PCP - General Family Practice 03/08/16 Pamela Blanco NP [facility] [address] [place], [place] 893967 Referring Physician 07/13/16 Pedro Segura MD [facility] [address] [place], [place] [address] Nephrology 10/03/16 Freddy Craft MD 516 [facility] [address] [place] [address] Assigned Gastroenterology Provider 02/08/20 Abdifatah Van MD 717 [facility] [address] [place] [address] Assigned Nephrology Provider 07/13/20 11/07/23 Nicole Carranza NP 420 [facility] [address] [place] [address] Assigned Heart and Vascular Provider 01/09/22 Andressa Ruiz PA-C 420 [facility] 803 [place] [address] Physician Medical Records Receptionist Endocrinology, Diabetes, and Metabolism 03/01/22 Suzan Harry MD 420 [place] [address] Nephrology 06/30/23 Yasmeen Powers MD 500 [place] [address] Nephrology 10/24/23 Yasmeen Powers MD 500 [place] [address] Assigned Nephrology Provider 11/08/23 documented as of this encounter
--- OUTSIDE RECORDS SUMMARY | 2024-01-17 16:41 | XMS_ITS | Encounter Summary ---
Author Organization [place] Address [address] [place] [address] Care Team Providers Care Cow Tender Name Role Phone Rubén Boyle MD Primary Care Provider [phone] Pamela Blanco COLORER MACHINE Unavailable Pedro Segura MD Unavailable Freddy Craft MD Unavailable Abdifatah Van MD Unavailable Nicole Carranza COLORER MACHINE Unavailable Andressa RuizC Unavailable Rubén Gunter [facility] Unavailable Andressa Ruiz-C Unavailable Suzan Harry MD Unavailable [phone] Yasmeen Powers MD Unavailable Yasmeen Powers MD Unavailable [phone] Encounter Details Date Type Department Care Team (Late st Contact Info) Description 04/05/2023 External Order Results [facility] [address] [place] [address] Outside, Provider 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) [...] TANDEM MASS SPECTROMETRY Routine 04/05/2023 12:30 PM JUNIOR PROGRAMMER 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) MAGNESIUM Routine 04/05/2023 12:30 PM JUNIOR PROGRAMMER HEPATIC FUNCTION PANEL Routine 04/05/2023 12:30 PM JUNIOR PROGRAMMER 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) DIFFERENTIAL Routine 04/05/2023 12:30 PM JUNIOR PROGRAMMER BASIC METABOLIC PANEL Routine 04/05/2023 12:30 PM JUNIOR PROGRAMMER 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) CBC WITH PLATELETS Routine 04/05/2023 12 :30 PM JUNIOR PROGRAMMER 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) documented in this encounter Results * Tacrolimus by Tandem Mass Spectrometry (04/05/2023 12:30 PM JUNIOR PROGRAMMER) Tacrolimus(FK-5 06) (External) 9.3 5.0 - 15.0 ng/mL NON-INTERFACED (ONBASE SCANS) Blood BLOOD SPECIMEN / Unknown 04/05/2023 12:30 PM JUNIOR PROGRAMMER Narrative SAMANTHA PFT - 04/12/2023 12:23 PM JUNIOR PROGRAMMER Verified by Cruzito Marlow on 04/12/2023. Freddy Dumont MD LAB - BLOOD ORD ERABLES SAMANTHA PFT NON-INTERFACED (ONBASE SCANS) * (ABNORMAL) Magnesium (04/05/2023 12:30 PM JUNIOR PROGRAMMER) Pathologist [facility] Magnesium (External) 1.3(L) 1.5 - 2.6 mg/dL NON-INTERFACED (ONBASE SCANS) Blood BLOOD SPECIMEN / Unknown 04/05/2023 12:30 PM JUNIOR PROGRAMMER Narrative SAMANTHA PFT - 04/07/2023 6:34 AM JUNIOR PROGRAMMER Verified by Yamil Santo on 04/07/2023. Freddy Dumont MD LAB - BLOOD ORD ERABLES SAMANTHA PFT NON-INTERFACED (ONBASE SCANS) * (ABNORMAL) Manual Differential (04/05/2023 12:30 PM JUNIOR PROGRAMMER) Pathologist [facility] % Neutrophils (External) 51.5 42.0 - 72.0 [...] BLOOD SPECIMEN / Unknown 04/05/2023 12:30 PM JUNIOR PROGRAMMER Narrative BREEZE PFT - 04/07/2023 6:34 AM JUNIOR PROGRAMMER Verified by Yamil Santo on 04/07/2023. Freddy Dumont MD LAB - BLOOD ORD ERABLES AMNAE PFT NON-INTERFACED (ONBASE SCANS) * Hepatic panel (04/05/2023 12:30 PM JUNIOR PROGRAMMER) Protein Total (External) 6.3 6.0 - 8.3 [...] BLOOD SPECIMEN / Unknown 04/05/2023 12:30 PM JUNIOR PROGRAMMER Narrative AMNAE PFT - 04/07/2023 6:33 AM JUNIOR PROGRAMMER Verified by Yamil Santo on 04/07/2023. Freddy Dumont MD LAB - BLOOD ORD ERABLES SAMANTHA PFT NON-INTERFACED (ONBASE SCANS) * (ABNORMAL) CBC with platelets (04/05/2023 12:30 PM JUNIOR PROGRAMMER) WBC Count (External) 3.15(L) 4.50 - 11.00 [...] BLOOD SPECIMEN / Unknown 04/05/2023 12:30 PM JUNIOR PROGRAMMER Narrative SAMANTHA PFT - 04/07/2023 6:33 AM JUNIOR PROGRAMMER Verified by Yamil Santo on 04/07/2023. Freddy Dumont MD LAB - BLOOD ORD ERABLES SAMANTHA PFT NON-INTERFACED (ONBASE SCANS) * (ABNORMAL) Basic metabolic panel (04/05/2023 12:30 PM JUNIOR PROGRAMMER) Sodium (External) 139 135 - 149 mmol/L [...] BLOOD SPECIMEN / Unknown 04/05/2023 12:30 PM JUNIOR PROGRAMMER Narrative SAMANTHA PFT - 04/07/2023 6:29 AM JUNIOR PROGRAMMER Verified by Yamil Santo on 04/07/2023. Freddy [...] documented as of this encounter Care Teams Cow Tender Relationship Specialty Start Date End Date Rubén Boyle MD PCP - General Family Practice 03/08/16 Pamela Blanco, COLORER MACHINE [facility] [address] [place], [place] [address] Referring Physician 07/13/16 Pedro Segura MD [facility] [address] [place], [place] [address] Nephrology 10/03/16 Freddy Craft MD 516 [facility] 2A [place], [place] 29[address] Assigned Gastroenterology Provider 02/08/20 Abdifatah Van MD [address] [place] [address] [address] [place] [address] Assigned Nephrology Provider 07/13/20 11/07/23 Nicole Carranza NP 420 [facility] 508 [place] [address] Assigned Heart and Vascular Provider 01/09/22 Andressa Ruiz PA-C 420 [facility] 803 [place] [address] Physician Steel Pan Form Placing Supervisor Endocrinology, Diabetes, and Metabolism 03/01/22 Rubén Gunter [facility] [address] [place] [address] Assigned MTM Pharmacist 02/27/22 Andressa Ruiz PA-C 420 [facility] 803 [place] [address] Assigned Endocrinology Provider 03/13/22 09/07/23 Suzan Harry MD 420 [place] [address] Nephrology 06/30/23 Yasmeen Powers MD 500 [place] [address] Nephrology 10/24/23 Yasmeen Powers MD 500 [place] [address] Assigned Nephrology Provider 11/08/23 documented as of this encounter
--- OUTSIDE RECORDS SUMMARY | 2024-01-17 16:41 | XMS_ITS | Encounter Summary ---
Author Organization [place] Address [address] [place] [address] Care Team Providers Care Medical Administrative Assistant Name Role Phone Rubén Boyle MD Primary Care Provider Pamela Blanco FRONT EDGER Unavailable Pedro Segura MD Unavailable Freddy Craft MD Unavailable [phone] Abdifatah Van MD Unavailable Nicole Carranza FRONT EDGER Unavailable Andressa Ruiz-C Unavailable Rubén Gunter [facility] Unavailable Andressa Ruiz-C Unavailable Suzan Harry MD Unavailable [phone] Yasmeen Powers MD Unavailable Yasmeen Powers MD Unavailable [phone] Encounter Details Date Type Department Care Team (Late st Contact Info) Description 08/22/2023 MyC Medical Advice [facility] 9[address] [place] [address] Calli Hall, RN Social History [...] documented as of this encounter Care Teams Medical Administrative Assistant Relationship Specialty Start Date End Date Rubén Boyle MD PCP - General Family Practice 03/08/16 Pamela Blanco NP [facility] [address] [place], [place] [address]327 Referring Physician 07/13/16 Pedro Segura MD [facility] [address] [place], [place] [address]17 Nephrology 10/03/16 Freddy Craft MD 516 [facility] [address] [place], [place] 85[address] Assigned Gastroenterology Provider 02/08/20 Abdifatah Van MD 717 [facility] [address] [place], [place] [address]194 Assigned Nephrology Provider 07/13/20 11/07/23 Nicole Carranza NP 420 [facility] 508 [place] [address] Assigned Heart and Vascular Provider 01/09/22 Andressa Ruiz PA-C 420 [facility] 803 [place] [address] Physician Paster Hat Lining Endocrinology, Diabetes, and Metabolism 03/01/22 Rubén Gunter [facility] [address] [place] [address] Assigned MTM Pharmacist 02/27/22 Andressa Ruiz PA-C 420 [facility] 803 [place] [address] Assigned Endocrinology Provider 03/13/22 09/07/23 Suzan Harry MD 420 [place] [address] Nephrology 06/30/23 Yasmeen Powers MD 500 [place] [address] Nephrology 10/24/23 Yasmeen Powers MD 500 [place] [address] Assigned Nephrology Provider 11/08/23 documented as of this encounter
--- OUTSIDE RECORDS SUMMARY | 2024-01-17 16:41 | XMS_ITS | Encounter Summary ---
Author Organization [place] Address [address] [place] [address] Care Team Providers Care Director Of Dietary Name Role Phone Rubén Boyle MD Primary Care Provider Pamela Blanco CHLORINE CELL TENDER Unavailable Pedro Segura MD Unavailable Freddy Craft MD Unavailable Abdifatah Van MD Unavailable Nicole Carranza CHLORINE CELL TENDER Unavailable Andressa RuizC Unavailable Rubén Gunter [facility] Unavailable Andressa Ruiz-C Unavailable Suzan Harry MD Unavailable Yasmeen Powers MD Unavailable [phone] Yasmeen Powers MD Unavailable [phone] Encounter Details Date Type Department Care Team (Late st Contact Info) Description 04/20/2023 External Order Results [facility] [address] [place] [address] Outside, Provider 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) [...] BASIC METABOLIC PANEL Routine 04/20/2023 10:05 AM TRADING FLOOR OPERATOR 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) documented in this encounter Results * (ABNORMAL) Basic metabolic panel (04/20/2023 10:05 AM TRADING FLOOR OPERATOR) Sodium (External) 140 135 - 149 mmol/L [...] BLOOD SPECIMEN / Unknown 04/20/2023 10:05 AM TRADING FLOOR OPERATOR Narrative AMNAE PFT - 04/26/2023 7:54 AM TRADING FLOOR OPERATOR Verified by Yamil Santo on 04/26/2023. Freddy [...] as of this encounter Care Teams Director Of Dietary Relationship Specialty Start Date End Date Rubén Boyle MD PCP - General Family Practice 03/08/16 Pamela Blanco NP [facility] [address] [place], [place] 141037 Referring Physician 07/13/16 Pedro Segura MD [facility] [address] [place], [place] [address] Nephrology 10/03/16 Freddy Craft MD 516 [facility] 2A [place], [place] [address] Assigned Gastroenterology Provider 02/08/20 Abdifatah Van MD [address] [facility] [address] [place] [address] Assigned Nephrology Provider 07/13/20 11/07/23 Nicole Carranza NP 420 [facility] 508 [place], [place] [address] Assigned Heart and Vascular Provider 01/09/22 Andressa Ruiz PA-C 420 [facility] 803 [place] [address] Physician Ob/Gyn Physician Endocrinology, Diabetes, and Metabolism 03/01/22 Rubén Gunter [facility] 909 [place] [address] Assigned MTM Pharmacist 02/27/22 Andressa Ruiz PA-C 420 [facility] 803 [place] [address] Assigned Endocrinology Provider 03/13/22 09/07/23 Suzan Harry MD 420 [place] [address] Nephrology 06/30/23 Yasmeen Powers MD 500 [place] [address] Nephrology 10/24/23 Yasmeen Powers MD 500 [place] [address] Assigned Nephrology Provider 11/08/23 documented as of this encounter
--- OUTSIDE RECORDS SUMMARY | 2024-01-17 16:42 | XMS_ITS | Encounter Summary ---
Author Organization [place] Address [address] [place] [address] Care Team Providers Care Oncologist Name Role Phone Rubén Boyle MD Primary Care Provider [phone] Pamela Blanco DOOR FRAME ASSEMBLER MACHINE Unavailable Pedro Segura MD Unavailable Freddy Craft MD Unavailable Abdifatah Van MD Unavailable Nicole Carranza DOOR FRAME ASSEMBLER MACHINE Unavailable [phone] Andressa Ruiz-C Unavailable Ashlyn Storm RN Unavailable [phone] Rubén Gunter [facility] Unavailable Andressa Ruiz-C Unavailable Suzan Harry MD Unavailable [phone] Yasmeen Powers MD Unavailable [phone] Yasmeen Powers MD Unavailable [phone] Reason for Visit * Reason Onset Date Comments Appointment 12/16/2021 Appt for dx Aort ic Stenosis Encounter Details Date Type Department Care Team (Late st Contact Info) Description 12/16/[address] [place] [address] None Appointment (Appt for dx Aortic Stenosis) [...] may need valve replacement. Echo done at [facility] 10/24/21 Did offer if pt wants appt at [place] but he req for [facility] aware to wait for clinic to call [...] documented as of this encounter Care Teams Oncologist Relationship Specialty Start Date End Date Rubén Boyle MD PCP - General Family Practice 03/08/16 Pamela Blanco, DOOR FRAME ASSEMBLER MACHINE [facility] [address] [place] [address] Referring Physician 07/13/16 Pedro Segura MD [facility] [address] [place], [place] [address] Nephrology 10/03/16 Freddy Craft MD 516 [facility] 2A [place], [place] [address]17[address] Assigned Gastroenterology Provider 02/08/20 Abdifatah Van MD 717 [facility] [address] [place], [place] [address] Assigned Nephrology Provider 07/13/20 11/07/23 Nicole Carranza NP 420 [facility] 508 [place], [place] [address] Assigned Heart and Vascular Provider 01/09/22 Andressa Ruiz PA-C 420 [facility] 803 [place], [place] 220175 Physician Apron Operator Endocrinology, Diabetes, and Metabolism 03/01/22 Ashlyn Storm, RN [facility] 711 [place], [place] 7[address]404 Registered Nurse 03/03/22 09/15/22 Rubén Gunter [facility] 909 [place] [address] Assigned MTM Pharmacist 02/27/22 Andressa Ruiz PA-C 420 [facility] 803 [place], [place] 567715 Assigned Endocrinology Provider 03/13/22 09/07/23 Suzan Harry MD 420 [place], [place] 9823[address] Nephrology 06/30/23 Yasmeen Powers MD 500 [place] [address] Nephrology 10/24/23 Yasmeen Powers MD 500 [place] [address] Assigned Nephrology Provider 11/08/23 documented as of this encounter
--- OUTSIDE RECORDS SUMMARY | 2024-01-17 16:42 | XMS_ITS | Encounter Summary ---
Author Organization [place] Address [address] [place] [address] Care Team Providers Care Rough Planer Tender Name Role Phone Rubén Boyle MD Primary Care Provider [phone] Pamela Blanco CODING ANALYST Unavailable [phone] Pedro Segura MD Unavailable [phone] Freddy Craft MD Unavailable Abdifatah Van MD Unavailable Nicole Carranza CODING ANALYST Unavailable [phone] Andressa Ruiz-C Unavailable [phone] Ashlyn Storm RN Unavailable [phone] Rubén Gunter [facility] Unavailable Andressa Ruiz-C Unavailable Suzan Harry MD Unavailable [phone] Yasmeen Powers MD Unavailable [phone] Yasmeen Powers MD Unavailable [phone] Reason for Visit * Reason Onset Date Comments Call Back 11/04/2021 Alex is request ing call back to go over lab results Critical Values 11/04/2021 Encounter Details Date Type Department Care Team ([facility] Contact Info) Description 11/04/2021 Telephone [facility] [address] [address] Freddy Craft MD [address] [place] [address] 2[address] [place] [address] Call Back (Alex is requesting call back [...] encounter Miscellaneous Notes * Telephone Encounter - Catia Su RN - 11/05/2021 9:01 AM CDT Differential faxed to [facility] to be added on to recent labs with WBC 1.93. ADDENDUM: Records requested from [facility] re: all labs from 10/2021 * Telephone Encounter - Laurie Carmen LPN - 11/05/2021 8:46 AM CDT DATE: 11/05/2021 TIME OF RECEIPT FROM LAB: 8:46 ORDERING PROVIDER: Elio LAB TEST: wbc LAB VALUE: 1.93 RESULTS GIVEN WITH READ-BACK TO (PROVIDER): Catia Su TIME LAB VALUE REPORTED TO PROVIDER: 8:46 * Telephone Encounter - Loren Adan - 11/04/2021 4:55 PM CDT M [facility] Phone Message May a detailed message be left on voicemail: yes Reason for Call: Other: Alex from [facility] is requesting a call back to go over patient's labs, they found that patient has a low white cell count. Please call them back at [phone], thank you! 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, 07/10/16 rectal swab 06/21/2016 06/21/2016 documented as of this encounter Care Teams Rough Planer Tender Relationship Specialty Start Date End Date Rubén Boyle MD PCP - General Family Practice 03/08/16 Pamela Blanco CODING ANALYST [facility] [address] [place], [place] 4118[address] Referring Physician 07/13/16 Pedro Segura MD [facility] [address] [place], [place] [address] Nephrology 10/03/16 Freddy Craft MD 516 [facility] 2A [place] [address] Assigned Gastroenterology Provider 02/08/20 Abdifatah Van MD [address] [place] [address] Assigned Nephrology Provider 07/13/20 11/07/23 Nicole Carranza NP 420 [facility] [address] [place] [address] Assigned Heart and Vascular Provider 01/09/22 Andressa Ruiz PA-C 420 [facility] 803 [place] [address] Physician Helmet Hat Brim Cutter Endocrinology, Diabetes, and Metabolism 03/01/22 Ashlyn Storm, RN [facility] 711 [place] [address] Registered Nurse 03/03/22 09/15/22 Rubén Gunter [facility] [address] [place] [address] Assigned MTM Pharmacist 02/27/22 Andressa Ruiz PA-C 420 [facility] 803 [place] [address] Assigned Endocrinology Provider 03/13/22 09/07/23 Suzan Harry MD [address] [place] [address] Nephrology 06/30/23 Yasmeen Powers MD 500 [place] [address] Nephrology 10/24/23 Yasmeen Powers MD 500 [place] [address] Assigned Nephrology Provider 11/08/23 documented as of this encounter
--- OUTSIDE RECORDS SUMMARY | 2024-01-17 16:42 | XMS_ITS | Encounter Summary ---
Author Organization [place] Address [address] [place] [address] Care Team Providers Care Remote Broadcast Technician Name Role Phone Rubén Boyle MD Primary Care Provider Pamela Blanco IMPLEMENTATION SERVICES ANALYST Unavailable Pedro Segura MD Unavailable Freddy Craft MD Unavailable Abdifatah Van MD Unavailable Nicole Carranza IMPLEMENTATION SERVICES ANALYST Unavailable [phone] Andressa Ruiz-C Unavailable Ashlyn Storm RN Unavailable Rubén Gunter [facility] Unavailable Andressa Ruiz-C Unavailable Suzan Harry MD Unavailable [phone] Yasmeen Powers MD Unavailable [phone] Yasmeen Powers MD Unavailable [phone] Encounter Details Date Type Department Care Team (Late st Contact Info) Description 01/25/2022 [facility] 9[address] [place] [address] Calli Hall RN Social History [...] documented as of this encounter Care Teams Remote Broadcast Technician Relationship Specialty Start Date End Date Rubén Boyle MD PCP - General Family Practice 03/08/16 Pamela Blanco NP [facility] [address] [place] [address] Referring Physician 07/13/16 Pedro Segura MD [facility] [address] [place] [address] Nephrology 10/03/16 Freddy Craft MD [address] 1060[address] Assigned Gastroenterology Provider 02/08/20 Abdifatah Van MD 717 [facility] [address] [place] [address] Assigned Nephrology Provider 07/13/20 11/07/23 Nicole Carranza NP 420 [facility] 508 [place] [address] Assigned Heart and Vascular Provider 01/09/22 Adnressa Ruiz PA-C 420 [facility] 803 [place] [address] Physician Head Refrigeration Engineer Endocrinology, Diabetes, and Metabolism 03/01/22 Ashlyn Storm, RN [facility] 711 [place] [address] Registered Nurse 03/03/22 09/15/22 Rubén Gunter [facility] [address] [place] [address] Assigned MTM Pharmacist 02/27/22 Andressa Ruiz PA-C 420 [facility] 803 [place] [address] Assigned Endocrinology Provider 03/13/22 09/07/23 Suzan Harry MD 420 [place] [address] Nephrology 06/30/23 Yasmeen Powers MD 500 [place], [place] [address]55 Nephrology 10/24/23 Yasmeen Powers MD 500 [place] [address] Assigned Nephrology Provider 11/08/23 documented as of this encounter
--- OUTSIDE RECORDS SUMMARY | 2024-01-17 16:42 | XMS_ITS | Encounter Summary ---
Author Organization [place] Address [address] [place] [address] Care Team Providers Care Lockstitch Machine Operator Name Role Phone Rubén Boyle MD Primary Care Provider Pamela Blanco DRY CHARGE PROCESS ATTENDANT Unavailable Pedro Segura MD Unavailable [phone] Freddy Craft MD Unavailable Abdifatah Van MD Unavailable Nicole Carranza DRY CHARGE PROCESS ATTENDANT Unavailable [phone] Andressa Ruiz-C Unavailable Ashlyn Storm RN Unavailable [phone] Rubén Gunter [facility] Unavailable Andressa Ruiz-C Unavailable Suzan Harry MD Unavailable [phone] Yasmeen Powers MD Unavailable [phone] Yasmeen Powers MD Unavailable [phone] Encounter Details Date Type Department Care Team (Late st Contact Info) Description 05/17/2022 External Order Results [facility] [address] [place] [address] Outside, Provider History of liver transplant (H) [...] PLATELETS & DIFFERENTIAL Routine 05/17/2022 3:24 PM JAVA LEAD DEVELOPER TACROLIMUS BY TANDEM MASS SPECTROMETRY Routine 05/17/2022 3:24 PM JAVA LEAD DEVELOPER MAGNESIUM Routine 05/17/2022 3:24 PM JAVA LEAD DEVELOPER HEPATIC FUNCTION PANEL Routine 05/17/2022 3:24 PM JAVA LEAD DEVELOPER History of liver transplant (H) BASIC METABOLIC PANEL Routine 05/17/2022 3:24 PM JAVA LEAD DEVELOPER History of liver transplant (H) documented in this encounter Results * Tacrolimus by Tandem Mass Spectrometry (05/17/2022 3:24 PM JAVA LEAD DEVELOPER) Tacrolimus(FK-5 06) (External) 7.8 5.0 - 15.0 ng/mL NON-INTERFACED (ONBASE SCANS) Blood 05/17/2022 3:24 PM JAVA LEAD DEVELOPER Narrative ERICKEZKayli PFT - 05/24/2022 2:19 PM JAVA LEAD DEVELOPER Verified by Pedrito Stallworth on 05/24/2022. Freddy Dumont MD LAB - BLOOD ORD ERABLES SAMANTHA PFT NON-INTERFACED (ONBASE SCANS) * (ABNORMAL) Magnesium (05/17/2022 3:24 PM JAVA LEAD DEVELOPER) Magnesium (External) 1.4(L) 1.5 - 2.6 mg/dL NON-INTERFACED (ONBASE SCANS) Blood BLOOD SPECIMEN / Unknown 05/17/2022 3:24 PM JAVA LEAD DEVELOPER Narrative SAMANTHA PFT - 05/19/2022 2:28 PM JAVA LEAD DEVELOPER Verified by Melissa Otto on 05/19/2022. Freddy Dumont MD LAB - BLOOD ORD ERABLES SAMANTHA PFT NON-INTERFACED (ONBASE SCANS) * (ABNORMAL) CBC with Platelets & Differential (05/17/2022 3:24 PM JAVA LEAD DEVELOPER) WBC Count (External) 4.48(L) 4.50 - 11.00 [...] BLOOD SPECIMEN / Unknown 05/17/2022 3:24 PM JAVA LEAD DEVELOPER Narrative SAMANTHA PFT - 05/19/2022 2:28 PM JAVA LEAD DEVELOPER Verified by Melissa Otto on 05/19/2022. Freddy Dumont MD LAB - BLOOD ORD ERABLES SAMANTHA PFT NON-INTERFACED (ONBASE SCANS) * (ABNORMAL) Basic metabolic panel (05/17/2022 3:24 PM JAVA LEAD DEVELOPER) Sodium (External) 137 135 - 149 mmol/L [...] NON-INTERFACED (ONBASE SCANS) Blood 05/17/2022 3:24 PM JAVA LEAD DEVELOPER Narrative BREEZE PFT - 05/19/2022 2:28 PM JAVA LEAD DEVELOPER Verified by Melissa Otto on 05/19/2022. Freddy Dumont MD LAB - BLOOD [employer] SAMANTHA PFT NON-INTERFACED (ONBASE SCANS) * (ABNORMAL) Hepatic function panel (05/17/2022 3:24 PM JAVA LEAD DEVELOPER) Protein Total (External) 6.7 6.0 - 8.3 [...] D (ONBASE SCANS) Blood 05/17/2022 3:24 PM JAVA LEAD DEVELOPER Narrative BREEZE PFT - 05/19/2022 2:28 PM JAVA LEAD DEVELOPER Verified by Melissa Otto on 05/19/2022. 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 [address] [place] [address] Referring Physician 07/13/[address] [facility] [address] [place], [place] 612597 Nephrology 10/03/16 Freddy Craft MD [address] [facility] [address] [place], [place] [address] Assigned Gastroenterology Provider 02/08/20 Abdifatah Van MD 717 [facility] [address] [place], [place] [address]404 Assigned Nephrology Provider 07/13/20 11/07/23 Nicole Carranza NP 420 [facility] 508 [place], [place] [address]165 Assigned Heart and Vascular Provider 01/09/22 Andressa Ruiz PA-C 420 [facility] 803 [place], [place] [address] Physician Supervisor Fertilizer Endocrinology, Diabetes, and Metabolism 03/01/22 Ashlyn Storm, RN [facility] 711 [place], [place] 7[address]134 Registered Nurse 03/03/22 09/15/22 Rubén Gunter [facility] 909 [place] [address] Assigned MTM Pharmacist 02/27/22 Andressa Ruiz PA-C 420 [facility] 803 [place] [address] Assigned Endocrinology Provider 03/13/22 09/07/23 Suzan Harry MD 420 [place] [address] Nephrology 06/30/23 Yasmeen Powers MD 500 [place] [address] Nephrology 10/24/23 Yasmeen Powers MD 500 [place] [address] Assigned Nephrology Provider 11/08/23 documented as of this encounter
--- OUTSIDE RECORDS SUMMARY | 2024-01-17 16:42 | XMS_ITS | Encounter Summary ---
Author Organization [facility] Address [address] [place] [address] Care Team Providers Care Warp Hand Name Role Phone Rubén Boyle MD Primary Care Provider Pamela Blanco PUPPY TRAINER Unavailable Pedro Segura MD Unavailable [phone] Freddy Craft MD Unavailable Abdifatah Van MD Unavailable Nicole Carranza PUPPY TRAINER Unavailable Andressa Ruiz-C Unavailable Rubén Gunter [facility] Unavailable Andressa Ruiz-C Unavailable Suzan Harry MD Unavailable [phone] Yasmeen Powers MD Unavailable Yasmeen Powers MD Unavailable [phone] Encounter Details Date Type Department Care Team (Late st Contact Info) Description 09/27/2022 MyC Medical Advice [facility] 909 [place] [address] Lashanda Hsieh, [facility] Social History Tobacco Use Types Packs/Day [...] documented as of this encounter Care Teams Warp Hand Relationship Specialty Start Date End Date Rubén Boyle MD PCP - General Family Practice 03/08/16 Pamela Blanco PUPPY TRAINER [facility] [address] [place], [place] 350417 Referring Physician 07/13/16 Pedro Segura MD [facility] [address] [place], [place] 176137 Nephrology 10/03/16 Freddy Craft MD [facility] [address] [place], [place] [address]8765 Assigned Gastroenterology Provider 02/08/20 Abdifatah Van MD 717 [facility] [address] [place] [address] Assigned Nephrology Provider 07/13/20 11/07/23 Nicole Carranza NP 420 [facility] 508 [place] [address] Assigned Heart and Vascular Provider 01/09/22 Andressa Ruiz PA-C 420 [facility] 803 [place] [address] Physician Internal Affairs Investigator Endocrinology, Diabetes, and Metabolism 03/01/22 [facility] [address] [place] [address] Assigned MTM Pharmacist 02/27/22 Andressa Ruiz PA-C 420 [facility] 803 [place] [address] Assigned Endocrinology Provider 03/13/22 09/07/23 Suzan Harry MD 420 [place] [address] Nephrology 06/30/23 Yasmeen Powers MD 500 [place] [address] Nephrology 10/24/23 Yasmeen Powers MD 500 [place] [address] Assigned Nephrology Provider 11/08/23 documented as of this encounter
--- OUTSIDE RECORDS SUMMARY | 2024-01-17 16:42 | XMS_ITS | Encounter Summary ---
Author Organization [facility] Address [address] [place] [address] Care Team Providers Care Outside Food Server Name Role Phone Rubén Boyle MD Primary Care Provider Pamela Blanco JUNIOR ACCOUNT MANAGER Unavailable Pedro Segura MD Unavailable [phone] Freddy Craft MD Unavailable [phone] Abdifatah Van MD Unavailable Nicole Carranza JUNIOR ACCOUNT MANAGER Unavailable [phone] Andressa Ruiz-C Unavailable Ashlyn Storm RN Unavailable [phone] Rubén Gunter [facility] Unavailable Andressa Ruiz-C Unavailable Suzan Harry MD Unavailable [phone] Yasmeen Powers MD Unavailable [phone] Yasmeen Powers MD Unavailable [phone] Encounter Details Date Type Department Care Team (Late st Contact Info) Description 07/05/2022 External Order Results [facility] [address] [place] [address] Outside, Provider Social History Tobacco Use Types [...] Mass Spectrometry (07/05/2022 1:38 PM CDT) Pathologist [facility] Tacrolimus(FK-5 06) (External) 7.8 5.0 - 15.0 [...] ORD ERABLES Performing Organization Address [facility]/ZIP Co de Phone Number BRECARISA PFT NON-INTERFACED [...] documented as of this encounter Care Teams Outside Food Server Relationship Specialty Start Date End Date Rubén Boyle MD PCP - General Family Practice 03/08/16 Pamela Blanco JUNIOR ACCOUNT MANAGER [facility] [address] [place], [place] [address] Referring Physician 07/13/16 Pedro Segura MD [facility] [address] [place], [place] [address] Nephrology 10/03/16 Freddy Craft MD 516 [facility] [place] [address] Assigned Gastroenterology Provider 02/08/20 Abdifatah Van MD 717 [facility] [address] [place] [address] Assigned Nephrology Provider 07/13/20 11/07/23 Nicole Carranza NP 420 [facility] 508 [place] [address] Assigned Heart and Vascular Provider 01/09/22 Andressa Ruiz PA-C 420 [facility] 803 [place] [address] Physician Travel Registered Nurse Nicu Endocrinology, Diabetes, and Metabolism 03/01/22 Ashlyn Storm RN [facility] 711 [place] [address] Registered Nurse 03/03/22 09/15/22 Rubén Gunter [facility] 909 [place], [place] 8[address] Assigned MTM Pharmacist 02/27/22 Andressa Ruiz PA-C 420 [facility] 803 [place], [place] [address]35 Assigned Endocrinology Provider 03/13/22 09/07/23 Suzan Harry MD 420 [place], [place] [address] Nephrology 06/30/23 Yasmeen Powers MD 500 [place], [place] [address] Nephrology 10/24/23 Yasmeen Powers MD 500 [place], [place] [address] Assigned Nephrology Provider 11/08/23 documented as of this encounter
--- OUTSIDE RECORDS SUMMARY | 2024-01-17 16:42 | XMS_ITS | Encounter Summary ---
Author Organization [place] Address [address] [place] [address] Care Team Providers Care Equipment Maintenance Tech Name Role Phone Rubén Boyle MD Primary Care Provider Pamela Blanco IN SCHOOL SUSPENSION AIDE Unavailable Pedro Segura MD Unavailable [phone] Freddy Craft MD Unavailable Abdifatah Van MD Unavailable Nicole Carranza IN SCHOOL SUSPENSION AIDE Unavailable Andressa Ruiz-C Unavailable [phone] Ashlyn Storm RN Unavailable [phone] Rubén Gunter [facility] Unavailable Andressa Ruiz-C Unavailable Suzan Harry MD Unavailable [phone] Yasmeen Powers MD Unavailable Yasmeen Powers MD Unavailable [phone] Encounter Details Date Type Department Care Team (Late st Contact Info) Description 05/12/2022 [facility] Medical Advice [facility] 909 [facility] 3rd Floor Clinic [address]A [place] [address] Ashlyn Storm, RN [facility] 711 [place], [place] 2268[address] Social History Tobacco Use Types Packs/Day Years [...] documented as of this encounter Care Teams Equipment Maintenance Tech Relationship Specialty Start Date End Date Rubén Boyle MD PCP - General Family Practice 03/08/16 Pamela Blanco NP [facility] [address] [place] [address] Referring Physician 07/13/16 Pedro Segura MD [facility] [address] [place], [place] 247757 Nephrology 10/03/16 Freddy Craft MD 516 [facility] 2A [place] [address] Assigned Gastroenterology Provider 02/08/20 Abdifatah Van MD 717 [facility] [address] [place] [address] Assigned Nephrology Provider 07/13/20 11/07/23 Nicole Carranza NP 420 [facility] 508 [place] [address] Assigned Heart and Vascular Provider 01/09/22 Andressa Ruiz PA-C 420 [facility] 803 [place] [address] Physician Interactive Media Designer Endocrinology, Diabetes, and Metabolism 03/01/22 Ashlyn Storm RN [facility] 711 [place] [address] Registered Nurse 03/03/22 09/15/22 Rubén Gunter [facility] [address] [place] [address] Assigned MTM Pharmacist 02/27/22 Andressa Ruiz PA-C [address] [place] [employer], [place] [address] [place] [address] Assigned Endocrinology Provider 03/13/22 09/07/23 Suzan Harry MD [address] [place] [address] Nephrology 06/30/23 Yasmeen Powers MD [address] [place], [place] [address]315 Nephrology 10/24/23 Yasmeen Powers MD 500 [place] [address] Assigned Nephrology Provider 11/08/23 documented as of this encounter
--- OUTSIDE RECORDS SUMMARY | 2024-01-17 16:42 | XMS_ITS | Encounter Summary ---
Author Organization [place] Address [address] [place] [address] Care Team Providers Care Collection Specialist Name Role Phone Rubén Boyle MD Primary Care Provider [phone] Pamela Blanco EMPLOYMENT SECURITY OFFICER Unavailable Pedro Segura MD Unavailable Freddy Craft MD Unavailable Abdifatah Van MD Unavailable Nicole Carranza EMPLOYMENT SECURITY OFFICER Unavailable [phone] Andressa Ruiz-C Unavailable [phone] Ashlyn Storm RN Unavailable Rubén Gunter [facility] Unavailable Andressa Ruiz-C Unavailable Suzan Harry MD Unavailable [phone] Yasmeen Powers MD Unavailable [phone] Yasmeen Powers MD Unavailable [phone] Encounter Details Date Type Department Care Team (Late st Contact Info) Description 05/27/2022 External Order Results [facility] [address] [place] [address] Outside, Provider History of liver transplant (H) [...] PLATELETS & DIFFERENTIAL Routine 05/27/2022 10:30 AM MERCHANDISE DIRECTOR TACROLIMUS BY TANDEM MASS SPECTROMETRY Routine 05/27/2022 10:30 AM MERCHANDISE DIRECTOR History of liver transplant (H) MAGNESIUM Routine 05/27/2022 10:30 AM MERCHANDISE DIRECTOR HEPATIC FUNCTION PANEL Routine 05/27/2022 10:30 AM MERCHANDISE DIRECTOR BASIC METABOLIC PANEL Routine 05/27/2022 10:30 AM MERCHANDISE DIRECTOR documented in this encounter Results * Tacrolimus by Tandem Mass Spectrometry (05/27/2022 10:30 AM MERCHANDISE DIRECTOR) Pathologist [facility] Tacrolimus(FK-5 06) (External) 4.8 See scan ng/ml NON-INTERFACED (ONBASE SCANS) Blood 05/27/2022 10:3 0 AM MERCHANDISE DIRECTOR Narrative SAMANTHA PFT - 05/31/2022 4:42 PM MERCHANDISE DIRECTOR Verified by Melissa Otto on 05/31/2022. Freddy Dumont MD LAB - BLOOD ORD ERABLES ERICKCARISA PFT NON-INTERFACED (ONBASE SCANS) * (ABNORMAL) CBC with Platelets & Differential (05/27/2022 10:30 AM MERCHANDISE DIRECTOR) Pathologist [facility] WBC Count (External) 2.95(L) 4.50 - 11.00 [...] NAEEM SINGH PFT - 05/31/2022 7:10 AM MERCHANDISE DIRECTOR Verified by Pedrito Stallworth on 05/31/2022. Freddy Dumont MD LAB - BLOOD ORD ERABLES BREEZE PFT NON-INTERFACED (ONBASE SCANS) * Magnesium (05/27/2022 10:30 AM MERCHANDISE DIRECTOR) Magnesium (External) 1.6 1.5 - 2.6 mg/dL NON-INTERFACED (ONBASE SCANS) Blood BLOOD SPECIMEN / Unknown 05/27/2022 10:30 AM MERCHANDISE DIRECTOR Narrative BREEZE PFT - 05/31/2022 7:10 AM MERCHANDISE DIRECTOR Verified by Pedrito Stallworth on 05/31/2022. Freddy Dumont MD LAB - BLOOD ORD ERABLES BREEZE PFT NON-INTERFACED (ONBASE SCANS) * Hepatic function panel (05/27/2022 10:30 AM MERCHANDISE DIRECTOR) Protein Total (External) 6.7 6.0 - 8.3 [...] BLOOD SPECIMEN / Unknown 05/27/2022 10:30 AM MERCHANDISE DIRECTOR Narrative BREEZE PFT - 05/31/2022 7:10 AM MERCHANDISE DIRECTOR Verified by Pedrito Stallworth on 05/31/2022. Freddy Dumont MD LAB - BLOOD ORD ERABLES Performing Organization Address City/[facility]/ZIP Co de Phone Number SAMANTHA PFT NON-INTERFACED (ONBASE SCANS) * (ABNORMAL) Basic metabolic panel (05/27/2022 10:30 AM MERCHANDISE DIRECTOR) Sodium (External) 141 135 - 149 mmol/L [...] BLOOD SPECIMEN / Unknown 05/27/2022 10:30 AM MERCHANDISE DIRECTOR Narrative SAMANTHA PFT - 05/31/2022 7:10 AM MERCHANDISE DIRECTOR Verified by Pedrito Stallworth on 05/31/2022. 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, 07/10/16 rectal swab 06/21/2016 06/21/2016 documented as of this encounter Care Teams Collection Specialist Relationship Specialty Start Date End Date Rubén Boyle MD PCP - General Family Practice 03/08/16 Pamela Blanco EMPLOYMENT SECURITY OFFICER [facility] [address] [place], [place] [address] Referring Physician 07/13/16 Pedro Segura MD [facility] [address] [place], [place] [address] Nephrology 10/03/16 Freddy Craft MD 516 [facility] 2[facility] [place] [address] Assigned Gastroenterology Provider 02/08/20 Abdifatah Van MD 717 [facility] [address] [place] [address] Assigned Nephrology Provider 07/13/20 11/07/23 Nicole Carranza NP 420 [facility] 508 [place] [address] Assigned Heart and Vascular Provider 01/09/22 Andressa Ruiz PA-C 420 [facility] 803 [place] [address] Physician Advertising Material Distributor Endocrinology, Diabetes, and Metabolism 03/01/22 Ashlyn Storm RN [facility] 711 [place] [address] Registered Nurse 03/03/22 09/15/22 Rubén Gunter [facility] 909 [place], [place] [id number] Assigned MTM Pharmacist 02/27/22 Andressa Ruiz PA-C 420 [facility] 803 [place], [place] 482155 Assigned Endocrinology Provider 03/13/22 09/07/23 Suzan Harry MD 420 [place], [place] [address] Nephrology 06/30/23 Yasmeen Powers MD 500 [place], [place] [address] Nephrology 10/24/23 Yasmeen Powers MD 500 [place], [place] 040934[address] Assigned Nephrology Provider 11/08/23 documented as of this encounter
--- OUTSIDE RECORDS SUMMARY | 2024-01-17 16:42 | XMS_ITS | Encounter Summary ---
Author Organization [place] Address [address] [place] [address] Care Team Providers Care Commission Agent Livestock Name Role Phone Rubén Boyle MD Primary Care Provider Pamela Blanco MACHINE FARMWORKER Unavailable Pedro Segura MD Unavailable Freddy Craft MD Unavailable [phone] Abdifatah Van MD Unavailable Nicole Carranza MACHINE FARMWORKER Unavailable [phone] Andressa Ruiz-C Unavailable Ashlyn Storm RN Unavailable Rubén Gunter [facility] Unavailable Andressa Ruiz-C Unavailable [phone] Suzan Harry MD Unavailable [phone] Yasmeen Powers MD Unavailable [phone] Yasmeen Powers MD Unavailable [phone] Encounter Details Date Type Department Care Team (Late st Contact Info) Description 01/13/2022 [facility] Trans[facility] Clinic 909 [place] [address] mAi Rivero LPN Social History Tobacco Use Types [...] documented as of this encounter Care Teams Commission Agent Livestock Relationship Specialty Start Date End Date Rubén Boyle MD PCP - General Family Practice 03/08/16 Pamela Blanco MACHINE FARMWORKER [facility] [address] [place] [address] Referring Physician 07/13/16 Pedro Segura MD [facility] [address] [place] [address] Nephrology 10/03/16 Freddy Craft MD [address] 7760[address] Assigned Gastroenterology Provider 02/08/20 Abdifatah Van MD [address] [place] [address] [address] [place] [address] Assigned Nephrology Provider 07/13/20 11/07/23 Nicole Carranza NP 420 [facility] 508 [place] [address] Assigned Heart and Vascular Provider 01/09/22 Andressa Ruiz PA-C 420 [facility] 803 [place] [address] Physician Dog Raiser Endocrinology, Diabetes, and Metabolism 03/01/22 Ashlyn Storm RN [facility] 711 [place] [address] Registered Nurse 03/03/22 09/15/22 Rubén Gunter [facility] [address] [place] [address] Assigned MTM Pharmacist 02/27/22 Andressa Ruiz PA-C 420 [facility] 803 [place] [address] Assigned Endocrinology Provider 03/13/22 09/07/23 Suzan Harry MD 420 [place] [address] Nephrology 06/30/23 Yasmeen Powers MD 500 [place], [place] [address] Nephrology 10/24/23 Yasmeen Powers MD 500 [place] [address] Assigned Nephrology Provider 11/08/23 documented as of this encounter
--- OUTSIDE RECORDS SUMMARY | 2024-01-17 16:42 | XMS_ITS | Encounter Summary ---
Author Organization [place] Address [address] [place] [address] Care Team Providers Care Ambulatory Services Representative Name Role Phone Rubén Boyle MD Primary Care Provider Pamela Blacno ABRASIVE MIXER HELPER Unavailable [phone] Pedro Segura MD Unavailable [phone] Freddy Craft MD Unavailable Abdifatah Van MD Unavailable Nicole Carranza ABRASIVE MIXER HELPER Unavailable [phone] Andressa Ruiz-C Unavailable [phone] Ashlyn Storm RN Unavailable Rubén Gunter [facility] Unavailable Andressa Ruiz-C Unavailable [phone] Suzan Harry MD Unavailable [phone] Yasmeen Powers MD Unavailable [phone] Yasmeen Powers MD Unavailable [phone] Encounter Details Date Type Department Care Team (Late st Contact Info) Description 08/31/2022 [facility] [address] [address] [facility] Social History Tobacco Use Types Packs/Day Years [...] documented as of this encounter Care Teams Ambulatory Services Representative Relationship Specialty Start Date End Date Rubén Boyle MD PCP - General Family Practice 03/08/16 Pamela Blanco NP [facility] [address] [place] [address] Referring Physician 07/13/16 Pedro Segura MD [facility] [address] [place] [address] Nephrology 10/03/16 Freddy Craft MD [address] [address] Assigned Gastroenterology Provider 02/08/20 Abdifatah Van MD [address] [place] [address] [address] [place] [address] Assigned Nephrology Provider 07/13/20 11/07/23 Nicole Carranza NP 420 [facility] 508 [place] [address] Assigned Heart and Vascular Provider 01/09/22 Andressa Ruiz PA-C 420 [facility] 803 [place] [address] Physician Student Life Dean Endocrinology, Diabetes, and Metabolism 03/01/22 Ashlyn Storm RN [facility] 711 [place] [address] Registered Nurse 03/03/22 09/15/22 Rubén Gunter [facility] [address] [place] [address] Assigned MTM Pharmacist 02/27/22 Andressa Ruiz PA-C 420 [facility] 803 [place] [address] Assigned Endocrinology Provider 03/13/22 09/07/23 Suzan Harry MD 420 [place] [address] Nephrology 06/30/23 Yasmeen Powers MD 500 [place], [place] 200995 Nephrology 10/24/23 Yasmeen Powers MD 500 [place] [address] Assigned Nephrology Provider 11/08/23 documented as of this encounter
--- OUTSIDE RECORDS SUMMARY | 2024-01-17 16:42 | XMS_ITS | Encounter Summary ---
Author Organization [place] Address [address] [place] [address] Care Team Providers Care Traffic Chief Name Role Phone Rubén Boyle MD Primary Care Provider Pamela Blanco SOLE TRIMMER Unavailable Pedro Segura MD Unavailable [phone] Freddy Craft MD Unavailable [phone] Abdifatah Van MD Unavailable Nicole Carranza SOLE TRIMMER Unavailable [phone] Andressa Ruiz-C Unavailable Ashlyn Storm RN Unavailable Rubén Gunter [facility] Unavailable Andressa Ruiz-C Unavailable [phone] Suzan Harry MD Unavailable [phone] Yasmeen Powers MD Unavailable [phone] Yasmeen Powers MD Unavailable [phone] Encounter Details Date Type Department Care Team (Late st Contact Info) Description 02/22/2022 External Order Results Formerly [facility] [address] [place] [address] Outside, Provider Social History Tobacco Use Types [...] Coronavirus/COVID-19? No / Unsure 02/24/2022 7:54 AM MANAGER SUPPORT documented as of this encounter Plan of Treatment Not on file documented as of this encounter Procedures Procedure Name Priority Date/Time Associated Diagnosis Comments COVID-19 VIRUS (CORONAVIRUS) BY PCR (EXTERNAL RESULT) Routine 02/22/2022 10:45 AM MANAGER SUPPORT documented in this encounter Results * COVID-19 Virus (Coronavirus) by PCR (External Result) (02/22/2022 10:45 AM MANAGER SUPPORT) COVID-19 Virus by PCR (External Result) Negative Negative NON-INTERFACE D (ONBASE SCANS) 02/22/2022 10:4 5 AM MANAGER SUPPORT Narrative SAMANTHA PFT - 02/23/2022 3:26 PM MANAGER SUPPORT Verified by Rhiannon Cain on 02/23/2022. 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, 07/10/16 rectal swab 06/21/2016 06/21/2016 documented as of this encounter Care Teams Traffic Chief Relationship Specialty Start Date End Date Rubén Boyle MD PCP - General Family Practice 03/08/16 Pamela Blanco SOLE TRIMMER [facility] [address] [place] [address] Referring Physician 07/13/16 Pedro Segura MD [facility] [address] [place] [address] Nephrology 10/03/16 Freddy Craft MD 516 [facility] [address] [place], [place] [address] Assigned Gastroenterology Provider 02/08/20 Abdifatah Van MD 717 [facility] [address] [place], [place] 08[address] Assigned Nephrology Provider 07/13/20 11/07/23 Nicole Carranza NP 420 [facility] [address] [place], [place] 7[address]185 Assigned Heart and Vascular Provider 01/09/22 Andressa Ruiz PA-C 420 [facility] M[address]03 [place], [place] 7[address]85 Physician Archivist Military History Endocrinology, Diabetes, and Metabolism 03/01/22 Ashlyn Storm RN [facility] 711 [place], [place] 6[address]344 Registered Nurse 03/03/22 09/15/22 Rubén Gunter [facility] [address] [facility] [address] [place], [place] 2[address] Assigned MTM Pharmacist 02/27/22 Andressa Ruiz PA-C 420 [facility] [address] [place], [place] 257475 Assigned Endocrinology Provider 03/13/22 09/07/23 Suzan Harry MD 420 [place], [place] 497835 Nephrology 06/30/23 Yasmeen Powers MD 500 [place], [place] 380745 Nephrology 10/24/23 Yasmeen Powers MD 500 [place] [address] Assigned Nephrology Provider 11/08/23 documented as of this encounter
--- OUTSIDE RECORDS SUMMARY | 2024-01-17 16:42 | XMS_ITS | Encounter Summary ---
Author Organization [place] Address [address] [place] [address] Care Team Providers Care Software Deployment Engineer Name Role Phone Rubén Boyle MD Primary Care Provider Pamela Blanco MEDIA JOB TITLES Unavailable Pedro Segura MD Unavailable Freddy Craft MD Unavailable [phone] Abdifatah Van MD Unavailable Nicole Carranza MEDIA JOB TITLES Unavailable [phone] Andressa Ruiz-C Unavailable [phone] Ashlyn Storm RN Unavailable [phone] Rubén Gunter [facility] Unavailable Andressa Ruiz-C Unavailable Suzan Harry MD Unavailable [phone] Yasmeen Powers MD Unavailable [phone] Yasmeen Powers MD Unavailable [phone] Encounter Details Date Type Department Care Team (Late st Contact Info) Description 03/03/2022 Formerly [facility] [address] [place] [address] [facility] Social History Tobacco Use Types Packs/Day Years [...] Coronavirus/COVID-19? 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 urine, 07/10/16 rectal swab 06/21/2016 06/21/2016 documented as of this encounter Care Teams Software Deployment Engineer Relationship Specialty Start Date End Date Rubén Boyle MD PCP - General Family Practice 03/08/16 Pamela Blanco NP [facility] [address] [place] [address] Referring Physician 07/13/16 Pedro Segura MD [facility] [address] [place] [address] Nephrology 10/03/16 Freddy Craft MD [address] [address] Assigned Gastroenterology Provider 02/08/20 Abdifatah Van MD 717 [facility] [address] [place] [address] Assigned Nephrology Provider 07/13/20 11/07/23 Nicole Carranza NP 420 [facility] 508 [place] [address] Assigned Heart and Vascular Provider 01/09/22 Andressa Ruiz PA-C 420 [facility] 803 [place] [address] Physician Rigger Up Endocrinology, Diabetes, and Metabolism 03/01/22 Ashlyn Storm, RN [facility] 711 [place] [address] Registered Nurse 03/03/22 09/15/22 Rubén Gunter [facility] [address] [place] [address] Assigned MTM Pharmacist 02/27/22 Andressa Ruiz PA-C 420 [facility] 803 [place] [address] Assigned Endocrinology Provider 03/13/22 09/07/23 Suzan Harry MD 420 [place] [address] Nephrology 06/30/23 Yasmeen Powers MD 500 [place], [place] [address]245 Nephrology 10/24/23 Yasmeen Powers MD 500 [place] [address] Assigned Nephrology Provider 11/08/23 documented as of this encounter
--- OUTSIDE RECORDS SUMMARY | 2024-01-17 16:42 | XMS_ITS | Encounter Summary ---
Author Organization [place] Address [address] [place] [address] Care Team Providers Care Ehs Specialist Name Role Phone Rubén Boyle MD Primary Care Provider Pamela Blanco ASSURANCE OFFICER Unavailable Pedro Segura MD Unavailable Freddy Craft MD Unavailable Abdifatah Van MD Unavailable Nicole Carranza ASSURANCE OFFICER Unavailable [phone] Andressa Ruiz-C Unavailable Ashlyn Storm RN Unavailable [phone] Rubén Gunter [facility] Unavailable Andressa Ruiz-C Unavailable Suzan Harry MD Unavailable [phone] Yasmeen Powers MD Unavailable [phone] Yasmeen Powers MD Unavailable [phone] Encounter Details Date Type Department Care Team (Late st Contact Info) Description 11/04/2021 External Order Results [facility] [address] [place] [address] Outside, Provider History of liver transplant (H) [...] Blood 11/04/2021 11:2 0 AM CDT Narrative ERICKEZE PFT - 11/05/2021 10:33 AM CDT Verified by Pedrito Stallworth on 11/05/2021. Freddy Dumont MD LAB - BLOOD ORD ERABLES Performing Organization Address [facility] Co de Phone Number [facility] PFT NON-INTERFACED (ONBASE SCANS) * Hepatic function [...] - BLOOD ORD ERALASHAE Performing Organization Address [facility] Co de Phone Number [...] documented as of this encounter Care Teams Ehs Specialist Relationship Specialty Start Date End Date Rubén Boyle MD PCP - General Family Practice 03/08/16 Pamela Blanco ASSURANCE OFFICER [facility] [address] [place] [address] Referring Physician 07/13/16 Pedro Segura MD [facility] [address] [place], [place] 67[address] Nephrology 10/03/16 Freddy Craft MD 516 [facility] [address] [place], [place] [address] Assigned Gastroenterology Provider 02/08/20 Abdifatah Van MD [address] [place], [place] [address] Assigned Nephrology Provider 07/13/20 11/07/23 Nicole Carranza, GERMANIA 420 [facility] 508 [place] [address] Assigned Heart and Vascular Provider 01/09/22 Andressa Ruiz PA-C 420 [facility] 803 [place], [place] 4[address] Physician Hot Top Liner Helper Endocrinology, Diabetes, and Metabolism 03/01/22 Ashlyn Storm, RN [facility] 711 [place], [place] [address]754 Registered Nurse 03/03/22 09/15/22 Rubén Gunter [facility] 909 [place], [place] [address] Assigned MTM Pharmacist 02/27/22 Andressa Ruiz PA-C 420 [facility] 803 [place], [place] 6[address]805 Assigned Endocrinology Provider 03/13/22 09/07/23 Suzan Harry MD 420 [place], [place] 565175 Nephrology 06/30/23 Yasmeen Powers MD 500 [place], [place] 818665 Nephrology 10/24/23 Yasmeen Powers MD 500 [place] [address] Assigned Nephrology Provider 11/08/23 documented as of this encounter
--- OUTSIDE RECORDS SUMMARY | 2024-01-17 16:42 | XMS_ITS | Encounter Summary ---
Author Organization [place] Address [address] [place] [address]. [place] [address] Care Team Providers Care Microsoft Windows Engineer Name Role Phone Rubén Boyle MD Primary Care Provider Pamela Blanco COURIER DRIVER Unavailable [phone] Pedro Segura MD Unavailable Freddy Craft MD Unavailable [phone] Abdifatah Van MD Unavailable Nicole Carranza COURIER DRIVER Unavailable Andressa Ruiz-C Unavailable Aslhyn Storm RN Unavailable Rubén Gunter [facility] Unavailable Andressa Ruiz-C Unavailable Suzan Harry MD Unavailable [phone] Yasmeen Powers MD Unavailable [phone] Yasmeen Powers MD Unavailable Encounter Details Date Type Department Care Team (Late st Contact Info) Description 02/23/2022 MyC Medical Advice UR PREOP/PHASE II 2450 [place] [address] Laurie Torres Social History Tobacco [...] Coronavirus/COVID-19? 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/16 urine, 07/10/16 rectal swab 06/21/2016 06/21/2016 documented as of this encounter Care Teams Microsoft Windows Engineer Relationship Specialty Start Date End Date Rubén Boyle MD PCP - General Family Practice 03/08/16 Pamela Blanco NP [facility] [address] [place] [address] Referring Physician 07/13/16 Pedro Segura MD [facility] [address] [place] [address] Nephrology 10/03/16 Freddy Craft MD [address] [address] Assigned Gastroenterology Provider 02/08/20 Abdifatah Van MD 717 [facility] 353 [place] [address] Assigned Nephrology Provider 07/13/20 11/07/23 Nicole Carranza NP 420 [facility] 508 [place] [address] Assigned Heart and Vascular Provider 01/09/22 Andressa Ruiz PA-C 420 [facility] 803 [place] [address] Physician Air Brakes Inspector Endocrinology, Diabetes, and Metabolism 03/01/22 Ashlyn Storm, RN [facility] 711 [place] [address] Registered Nurse 03/03/22 09/15/22 Rubén Gunter [facility] [address] [place] [address] Assigned MTM Pharmacist 02/27/22 Andressa Ruiz PA-C 420 [facility] 803 [place] [address] Assigned Endocrinology Provider 03/13/22 09/07/23 Suzan Harry MD 420 [place] [address] Nephrology 06/30/23 Yasmeen Powers MD 500 [place], [place] [address] Nephrology 10/24/23 Yasmeen Powers MD 500 [place], [place] 6[address]355 Assigned Nephrology Provider 11/08/23 documented as of this encounter
--- OUTSIDE RECORDS SUMMARY | 2024-01-17 16:42 | XMS_ITS | Encounter Summary ---
Author Organization [place] Address [address] [place] [address] Care Team Providers Care Bridge Worker Apprentice Name Role Phone Rubén Boyle MD Primary Care Provider Pamela Blanco FINISHING ROOM SUPERVISOR Unavailable [phone] Pedro Segura MD Unavailable Freddy Craft MD Unavailable [phone] Abdifatah Van MD Unavailable Nicole Carranza FINISHING ROOM SUPERVISOR Unavailable [phone] Andressa Ruiz-C Unavailable Ashlyn Storm RN Unavailable Rubén Gunter [facility] Unavailable Andressa Ruiz-C Unavailable Suzan Harry MD Unavailable [phone] Yasmeen Powers MD Unavailable [phone] Yasmeen Powers MD Unavailable [phone] Encounter Details Date Type Department Care Team (Late st Contact Info) Description 04/22/2022 External Order Results Formerly [facility] [address] [place] [address] Outside, Provider History of liver transplant (H) [...] Coronavirus/COVID-19? No / Unsure 04/05/2022 7:31 AM TIE BINDER documented as of this encounter Plan of Treatment Not on file documented as of this encounter Procedures Procedure Name Priority Date/Time Associated Diagnosis Comments CBC WITH PLATELETS & DIFFERENTIAL Routine 04/22/2022 11:39 AM TIE BINDER TACROLIMUS BY TANDEM MASS SPECTROMETRY Routine 04/22/2022 11:39 AM TIE BINDER History of liver transplant (H) MAGNESIUM Routine 04/22/2022 11:39 AM TIE BINDER HEPATIC FUNCTION PANEL Routine 04/22/2022 11:39 AM TIE BINDER BASIC METABOLIC PANEL Routine 04/22/2022 11:39 AM TIE BINDER documented in this encounter Results * Tacrolimus by Tandem Mass Spectrometry (04/22/2022 11:39 AM TIE BINDER) Tacrolimus(FK-5 06) (External) 4.7 ng/mL NON-INTERFACE D (ONBASE SCANS) Blood 04/22/2022 11:3 9 AM TIE BINDER Narrative SAMANTHA PFT - 04/26/2022 12:21 PM TIE BINDER Verified by Chela Rutledge on 04/26/2022. Freddy Dumont MD LAB - BLOOD ORD ERABLES SAMANTHA PFTameka NON-INTERFACED (ONBASE SCANS) * (ABNORMAL) Basic metabolic panel (04/22/2022 11:39 AM TIE BINDER) Sodium (External) 139 135 - 149 mmol/L [...] BLOOD SPECIMEN / Unknown 04/22/2022 11:39 AM TIE BINDER Narrative SAMANTHA PFT - 04/23/2022 9:53 AM TIE BINDER Verified by Yamil Santo on 04/23/2022. Freddy Dumont MD LAB - BLOOD ORD ERABLES SAMANTHA PF NON-INTERFACED (ONBASE SCANS) * Hepatic function panel (04/22/2022 11:39 AM TIE BINDER) Protein Total (External) 6.1 6.0 - 8.3 [...] BLOOD SPECIMEN / Unknown 04/22/2022 11:39 AM TIE BINDER Narrative BREEZE PFT - 04/23/2022 9:53 AM TIE BINDER Verified by Yamil Santo on 04/23/2022. Freddy Dumont MD LAB - BLOOD ORD ERABLES ERICKEZE PFT NON-INTERFACED (ONBASE SCANS) * Magnesium (04/22/2022 11:39 AM TIE BINDER) Magnesium (External) 1.6 1.5 - 2.6 mg/dL NON-INTERFACED (ONBASE SCANS) Blood BLOOD SPECIMEN / Unknown 04/22/2022 11:39 AM TIE BINDER Narrative BREEZE PFT - 04/23/2022 9:53 AM TIE BINDER Verified by Yamil Santo on 04/23/2022. Freddy Dumont MD LAB - BLOOD ORD ERABLES ERICKEZE PFT NON-INTERFACED (ONBASE SCANS) * (ABNORMAL) CBC with Platelets & Differential (04/22/2022 11:39 AM TIE BINDER) WBC Count (External) 2.02(L) 4.50 - 11.00 [...] BLOOD SPECIMEN / Unknown 04/22/2022 11:39 AM TIE BINDER Narrative SAMANTHA PFT - 04/23/2022 9:53 AM TIE BINDER Verified by Yamil Santo on 04/23/2022. Freddy [...] documented as of this encounter Care Teams Bridge Worker Apprentice Relationship Specialty Start Date End Date Rubén Boyle MD PCP - General Family Practice 03/08/16 Pamela Blanco FINISHING ROOM SUPERVISOR [facility] [address] [place], [place] [address] Referring Physician 07/13/16 Pedro Segura MD [facility] [address] [place], [place] [address] Nephrology 10/03/16 Freddy Craft MD 516 [facility] 2A [place], [place] [address] Assigned Gastroenterology Provider 02/08/20 Abdifatah Van MD 717 [facility] [address] [place] [address] Assigned Nephrology Provider 07/13/20 11/07/23 Nicole Carranza NP 420 [facility] 508 [place] [address] Assigned Heart and Vascular Provider 01/09/22 Andressa Ruiz PA-C 420 [facility] 803 [place] [address] Physician Director Payer Endocrinology, Diabetes, and Metabolism 03/01/22 Ashlyn Storm RN [facility] 711 [place], [place] [address] Registered Nurse 03/03/22 09/15/22 Rubén Gunter [facility] 909 [place] [address] Assigned MTM Pharmacist 02/27/22 Andressa Ruiz PA-C 420 [facility] 803 [place] [address] Assigned Endocrinology Provider 03/13/22 09/07/23 Suzan Harry MD [address] [place], [place] [address] Nephrology 06/30/23 Yasmeen Powers MD 500 [place] [address] Nephrology 10/24/23 Yasmeen Powers MD 500 [place] [address] Assigned Nephrology Provider 11/08/23 documented as of this encounter
--- OUTSIDE RECORDS SUMMARY | 2024-01-17 16:43 | XMS_ITS | Encounter Summary ---
Author Organization [place] Address [address] [place] [address] Care Team Providers Care Dishwasher Busser Name Role Phone Rubén Boyle MD Primary Care Provider Pamela Blanco FILM ARCHIVIST Unavailable Pedro Segura MD Unavailable [phone] Freddy Craft MD Unavailable Abdifatah Van MD Unavailable Nicole Carranza FILM ARCHIVIST Unavailable [phone] Andressa Ruiz-C Unavailable Ashlyn Storm RN Unavailable Rubén Gunter [facility] Unavailable Andressa Ruiz-C Unavailable Suzan Harry MD Unavailable [phone] Yasmeen Powers MD Unavailable [phone] Yasmeen Powers MD Unavailable [phone] Encounter Details Date Type Department Care Team (Late st Contact Info) Description 10/23/2021 External Order Results Formerly [facility] [address] [place] [address] Outside, Provider Social History Tobacco Use Types [...] documented as of this encounter Care Teams Dishwasher Busser Relationship Specialty Start Date End Date Rubén Boyle MD PCP - General Family Practice 03/08/16 Pamela Blanco FILM ARCHIVIST [facility] [address] [place] [address] Referring Physician 07/13/16 Pedro Segura MD [facility] [address] [place] [address] Nephrology 10/03/16 Freddy Craft MD 516 [facility] [address] [place], [place] [address] Assigned Gastroenterology Provider 02/08/20 Abdifatah Van MD 717 [facility] [address] [place], [place] [address] Assigned Nephrology Provider 07/13/20 11/07/23 Nicole Carranza NP 420 [facility] 508 [place] [address] Assigned Heart and Vascular Provider 01/09/22 Andressa Ruiz PA-C 420 [facility] 803 [place] [address] Physician Sugar Boiler Endocrinology, Diabetes, and Metabolism 03/01/22 Ashlyn Storm, RN [facility] 711 [place] [address] Registered Nurse 03/03/22 09/15/22 Rubén Gunter [facility] [address] [place] [address] Assigned MTM Pharmacist 02/27/22 Andressa Ruiz PA-C 420 [facility] 803 [place] [address] Assigned Endocrinology Provider 03/13/22 09/07/23 Suzan Harry MD [address] [place] [address] Nephrology 06/30/23 Yasmeen Powers MD 500 [place] [address] Nephrology 10/24/23 Yasmeen Powers MD 500 [place] [address] Assigned Nephrology Provider 11/08/23 documented as of this encounter
--- OUTSIDE RECORDS SUMMARY | 2024-01-17 16:43 | XMS_ITS | Encounter Summary ---
Author Organization [place] Address [address] [place] [address] Care Team Providers Care Last Trimmer Name Role Phone Rubén Boyle MD Primary Care Provider Pamela Blanco DIRECTOR DIABETES Unavailable Pedro Segura MD Unavailable Freddy Craft MD Unavailable [phone] Abdifatah Van MD Unavailable Nicole Carranza DIRECTOR DIABETES Unavailable [phone] Andressa Ruiz-C Unavailable [phone] Ashlyn Storm RN Unavailable Rubén Gunter [facility] Unavailable Andressa Ruiz-C Unavailable Suzan Harry MD Unavailable [phone] Yasmeen Powers MD Unavailable [phone] Yasmeen Powers MD Unavailable [phone] Encounter Details Date Type Department Care Team (Late st Contact Info) Description 08/11/2021 External Order Results [facility] [address] [place] [address] Outside, Provider Lipid screening; Liver replaced by [...] - BLOOD ORD ERABLES Performing Organization Address City/[facility]/ZIP Co de Phone Number BREEZE PFT [...] - BLOOD ORD ERABLES Performing Organization Address [facility] Co de Phone Number BREEZE PFT NON-INTERFACED [...] - BLOOD ORD ERABLES Performing Organization Address City/State/[facility] Co de Phone Number SAMANTHA PFT [...] documented as of this encounter Care Teams Last Trimmer Relationship Specialty Start Date End Date Rubén Boyle MD PCP - General Family Practice 03/08/16 Pamela Blanco NP [facility] [address] [place], [place] [address] Referring Physician 07/13/16 Pedro Segura MD [facility] [address] [place], [place] [address]187 Nephrology 10/03/16 Freddy Craft MD 516 [facility] 2[facility] [place], [place] [address] Assigned Gastroenterology Provider 02/08/20 Abdifatah Van MD [address] [facility] [address] [place] [address] Assigned Nephrology Provider 07/13/20 11/07/23 Nicole Carranza NP 420 [facility] [address] [place], [place] [address]885 Assigned Heart and Vascular Provider 01/09/22 Andressa Ruiz PA-C 420 [facility] 803 [place] [address] Physician Internal Medicine Nurse Endocrinology, Diabetes, and Metabolism 03/01/22 Ashlyn Storm, RN [facility] 711 [place] [address] Registered Nurse 03/03/22 09/15/22 Rubén Gunter [facility] [address] [place] [address] Assigned MTM Pharmacist 02/27/22 Andressa Ruiz PA-C 420 [facility] 803 [place] [address] Assigned Endocrinology Provider 03/13/22 09/07/23 Suzan Harry MD 420 [place] [address] Nephrology 06/30/23 Yasmeen Powers MD 500 [place] [address] Nephrology 10/24/23 Yasmeen Powers MD 500 [place] [address] Assigned Nephrology Provider 11/08/23 documented as of this encounter
--- OUTSIDE RECORDS SUMMARY | 2024-01-17 16:43 | XMS_ITS | Encounter Summary ---
Author Organization [place] Address [address] [place] [address] Care Team Providers Care Pharmacy Associate Name Role Phone Rubén Boyle MD Primary Care Provider Pamela Blanco INTELLECTUAL PROPERTY LEGAL ASSISTANT Unavailable Pedro Segura MD Unavailable [phone] Freddy Craft MD Unavailable Abdifatah Van MD Unavailable Nicole Carranza INTELLECTUAL PROPERTY LEGAL ASSISTANT Unavailable [phone] Andressa Ruiz-C Unavailable Ashlyn Storm RN Unavailable Rubén Gunter [facility] Unavailable Andressa Ruiz-C Unavailable Suzan Harry MD Unavailable [phone] Yasmeen Powers MD Unavailable [phone] Yasmeen Powers MD Unavailable [phone] Encounter Details Date Type Department Care Team (Late st Contact Info) Description 09/24/2020 External Order Results [facility] [address] [place] [address] Outside, Provider Alcohol abuse, in [...] documented as of this encounter Care Teams Pharmacy Associate Relationship Specialty Start Date End Date Rubén Boyle MD PCP - General Family Practice 03/08/16 Pamela Blanco INTELLECTUAL PROPERTY LEGAL ASSISTANT [facility] [address] [place] [address] Referring Physician 07/13/16 Pedro Segura MD [facility] [address] [place], [place] 174757 Nephrology 10/03/16 Freddy Craft MD 516 [facility] 2A [place], [place] [id number] Assigned Gastroenterology Provider 02/08/20 Abdifatah Van MD 717 [facility] [address] [place], [place] [address] Assigned Nephrology Provider 07/13/20 11/07/23 Nicole Carranza NP 420 [facility] 508 [place], [place] 168435 Assigned Heart and Vascular Provider 01/09/22 Andressa Ruiz PA-C 420 [facility] 803 [place], [place] 6[address] Physician Mission Assessment Specialist Endocrinology, Diabetes, and Metabolism 03/01/22 Ashlyn Storm, RN [facility] 711 [place] [address] Registered Nurse 03/03/22 09/15/22 Rubén Gunter [facility] 909 [place], [place] [address] Assigned MTM Pharmacist 02/27/22 Andressa Ruiz PA-C 420 [facility] 803 [place], [place] [address] Assigned Endocrinology Provider 03/13/22 09/07/23 Suzan Harry MD 420 [place], [place] [address] Nephrology 06/30/23 Yasmeen Powers MD 500 [place], [place] 100115 Nephrology 10/24/23 Yasmeen Powers MD 500 [place], [place] 131845 Assigned Nephrology Provider 11/08/23 documented as of this encounter
--- OUTSIDE RECORDS SUMMARY | 2024-01-17 16:43 | XMS_ITS | Encounter Summary ---
Author Organization [place] Address [address] [place] [address]. [place] [address] Care Team Providers Care Caustic Mixer Name Role Phone Rubén Boyle MD Primary Care Provider Pamela Blanco VARNISH MAKER HELPER Unavailable Pedro Segura MD Unavailable Freddy Craft MD Unavailable Abdifatah Van MD Unavailable Nicole Carranza VARNISH MAKER HELPER Unavailable Andressa Ruiz-C Unavailable [phone] Ashlyn Storm RN Unavailable [phone] Rubén Gunter [facility] Unavailable Andressa Ruiz-C Unavailable [phone] Suzan Harry MD Unavailable [phone] Yasmeen Powers MD Unavailable Yasmeen Powers MD Unavailable [phone] Encounter Details Date Type Department Care Team (Late st Contact Info) Description 10/02/2020 [facility] [address] [place] [address] Lilliam Collier Social History Tobacco Use [...] documented as of this encounter Care Teams Caustic Mixer Relationship Specialty Start Date End Date Rubén Boyle MD PCP - General Family Practice 03/08/16 Pamela Blanco NP [facility] [address] [place], [place] 404837 Referring Physician 07/13/16 Pedro Segura MD [facility] [address] [place], [place] 769567 Nephrology 10/03/16 Freddy Craft MD 516 [facility] 2A [place], [place] [address]385 Assigned Gastroenterology Provider 02/08/20 Abdifatah Van MD 717 [facility] [address] [place] [address] Assigned Nephrology Provider 07/13/20 11/07/23 Nicole Carranza NP 420 [facility] 508 [place] [address] Assigned Heart and Vascular Provider 01/09/22 Andressa Ruiz PA-C 420 [facility] 803 [place] [address] Physician Religion Department Chair Endocrinology, Diabetes, and Metabolism 03/01/22 Ashlyn Storm, RN [facility] 711 [place] [address] Registered Nurse 03/03/22 09/15/22 Rubén Gunter [facility] [address] [place] [address] Assigned MTM Pharmacist 02/27/22 Andressa Ruiz PA-C 420 [facility] 803 [place] [address] Assigned Endocrinology Provider 03/13/22 09/07/23 Suzan Harry MD 420 [place] [address] Nephrology 06/30/23 Yasmeen Powers MD 500 [place] [address] Nephrology 10/24/23 Yasmeen Powers MD 500 [place] [address] Assigned Nephrology Provider 11/08/23 documented as of this encounter
--- OUTSIDE RECORDS SUMMARY | 2024-01-17 16:43 | XMS_ITS | Encounter Summary ---
Author Organization [place] Address [address] [place] [address] Care Team Providers Care Cooling Tower Technician Name Role Phone Rubén Boyle MD Primary Care Provider Pamela Blanco TILE DESIGNER Unavailable Pedro Segura MD Unavailable Freddy Craft MD Unavailable Abdifatah Van MD Unavailable Nicole Carranza TILE DESIGNER Unavailable [phone] Andressa Ruiz PA-C Unavailable Ashlyn Storm RN Unavailable Rubén Gunter [facility] Unavailable Andressa Ruiz-C Unavailable Suzan Harry MD Unavailable [phone] Yasmeen Powers MD Unavailable [phone] Yasmeen Powers MD Unavailable [phone] Encounter Details Date Type Department Care Team (Late st Contact Info) Description 09/16/2020 [facility] [address] [place] [address] Calli Hall RN Social History [...] documented as of this encounter Care Teams Cooling Tower Technician Relationship Specialty Start Date End Date Rubén Boyle MD PCP - General Family Practice 03/08/16 Pamela Blanco TILE DESIGNER [facility] [address] [place], [place] 702237 Referring Physician 07/13/16 Pedro Segura MD [facility] [address] [place], [place] 832007 Nephrology 10/03/16 Freddy Craft MD 516 [facility] [address] [place], [place] [address]695 Assigned Gastroenterology Provider 02/08/20 Abdifatah Van MD 717 [facility] [address] [place], [place] 816934 Assigned Nephrology Provider 07/13/20 11/07/23 Nicole Carranza NP 420 [facility] 508 [place], [place] 442865 Assigned Heart and Vascular Provider 01/09/22 Andressa Ruiz PA-C 420 [facility] 803 [place], [place] [address]305 Physician Soft Work Wrapper Examiner Endocrinology, Diabetes, and Metabolism 03/01/22 Ashlyn Storm, RN [facility] 711 [place], [place] 269764 Registered Nurse 03/03/22 09/15/22 Rubén Gunter [facility] [address] [place] [address] Assigned MTM Pharmacist 02/27/22 Andressa Ruiz PA-C 420 [facility] 803 [place], [place] [address]295 Assigned Endocrinology Provider 03/13/22 09/07/23 Suzan Harry MD 420 [place] [address] Nephrology 06/30/23 Yasmeen Powers MD 500 [place] [address] Nephrology 10/24/23 Yasmeen Powers MD 500 [place] [address] Assigned Nephrology Provider 11/08/23 documented as of this encounter
--- OUTSIDE RECORDS SUMMARY | 2024-01-17 16:43 | XMS_ITS | Encounter Summary ---
Author Organization [place] Address [address] [place] [address] Care Team Providers Care Protection Consultant Name Role Phone Rubén Boyle MD Primary Care Provider Pamela Blanco KINDERGARTNERS HELPER Unavailable Pedro Segura MD Unavailable Freddy Craft MD Unavailable Abdifatah Van MD Unavailable Nicole Carranza KINDERGARTNERS HELPER Unavailable [phone] Andressa Ruiz PA-C Unavailable Ashlyn Storm RN Unavailable [phone] Rubén Gunter [facility] Unavailable Andressa Ruiz-C Unavailable [phone] Suzan Harry MD Unavailable [phone] Yasmeen Powers MD Unavailable [phone] Yasmeen Powers MD Unavailable [phone] Encounter Details Date Type Department Care Team (Late st Contact Info) Description 06/25/2021 [facility] [address] [place] [address] Calli Hall RN Social History [...] documented as of this encounter Care Teams Protection Consultant Relationship Specialty Start Date End Date Rubén Boyle MD PCP - General Family Practice 03/08/16 Pamela Blanco KINDERGARTNERS HELPER [facility] [address] [place], [place] 276767 Referring Physician 07/13/16 Pedro Segura MD [facility] [address] [place], [place] 735317 Nephrology 10/03/16 Freddy Craft MD 516 [facility] [address] [address] [place], [place] 3085[address] Assigned Gastroenterology Provider 02/08/20 Abdifatah Van MD [address] [facility] [address] [place], [place] 9[address] Assigned Nephrology Provider 07/13/20 11/07/23 Nicole Carranza NP 420 [facility] 508 [place], [place] 540[address] Assigned Heart and Vascular Provider 01/09/22 Andressa Ruiz PA-C 420 [facility] 803 [place], [place] [address] Physician Diamond Selector Endocrinology, Diabetes, and Metabolism 03/01/22 Ashlyn Storm, RN [facility] 711 [place], [place] 602334 Registered Nurse 03/03/22 09/15/22 Rubén Gunter [facility] [address] [place] [address] Assigned MTM Pharmacist 02/27/22 Andressa Ruiz PA-C 420 [facility] [address]03 [place], [place] 8[address]185 Assigned Endocrinology Provider 03/13/22 09/07/23 Suzan Harry MD 420 [place] [address] Nephrology 06/30/23 Yasmeen Powers MD 500 [place] [address] Nephrology 10/24/23 Yasmeen Powers MD 500 [place] [address] Assigned Nephrology Provider 11/08/23 documented as of this encounter
--- OUTSIDE RECORDS SUMMARY | 2024-01-17 16:43 | XMS_ITS | Encounter Summary ---
Author Organization [place] Address [address] [place] [address] Care Team Providers Care Reducer Name Role Phone Rubén Boyle MD Primary Care Provider [phone] Pamela Blanco MOLD STACKER Unavailable [phone] Pedro Segura MD Unavailable Freddy Craft MD Unavailable [phone] Abdifatah Van MD Unavailable Nicole Carranza MOLD STACKER Unavailable [phone] Andressa Ruiz PA-C Unavailable Ashlyn Storm RN Unavailable Rubén Gunter [facility] Unavailable Andressa Ruiz-C Unavailable [phone] Suzan Harry MD Unavailable [phone] Yasmeen Powers MD Unavailable [phone] Yasmeen Powers MD Unavailable [phone] Encounter Details Date Type Department Care Team (Late st Contact Info) Description 12/04/2020 [facility] 9[address] [place] [address] Calli Hall RN Social History [...] documented as of this encounter Care Teams Reducer Relationship Specialty Start Date End Date Rubén Boyle MD PCP - General Family Practice 03/08/16 Pamela Blanco MOLD STACKER [facility] [address] [place], [place] [address]277 Referring Physician 07/13/16 Pedro Segura MD [facility] [address] [place], [place] 6[address]87 Nephrology 10/03/16 Freddy Craft MD 516 [facility] [address] [place], [place] 7877[address] Assigned Gastroenterology Provider 02/08/20 Abdifatah Van MD 717 [facility] [address] [place], [place] 921864 Assigned Nephrology Provider 07/13/20 11/07/23 Nicole Carranza NP 420 [facility] 508 [place], [place] 830715 Assigned Heart and Vascular Provider 01/09/22 Andressa Ruiz PA-C 420 [facility] 803 [place], [place] [address]27[address] Physician Scheduling Coordinator Endocrinology, Diabetes, and Metabolism 03/01/22 Ashlyn Storm, RN [facility] 711 [place], [place] 389644 Registered Nurse 03/03/22 09/15/22 Rubén Gunter [facility] [address] [place] [address] Assigned MTM Pharmacist 02/27/22 Andressa Ruiz PA-C 420 [facility] 803 [place], [place] 225775 Assigned Endocrinology Provider 03/13/22 09/07/23 Suzan Harry MD 420 [place] [address] Nephrology 06/30/23 Yasmeen Powers MD 500 [place] [address] Nephrology 10/24/23 Yasmeen Powers MD 500 [place] [address] Assigned Nephrology Provider 11/08/23 documented as of this encounter
--- OUTSIDE RECORDS SUMMARY | 2024-01-17 16:43 | XMS_ITS | Encounter Summary ---
Author Organization [place] Address [address] [place] [address] Care Team Providers Care Riding Instructor Name Role Phone Rubén Boyle MD Primary Care Provider Pamela Blanco LOG HANDLER Unavailable Pedro Segura MD Unavailable Freddy Craft MD Unavailable [phone] Abdifatah Van MD Unavailable Nicole Carranza LOG HANDLER Unavailable [phone] Andressa Ruiz-C Unavailable Ashlyn Storm RN Unavailable [phone] Rubén Gunter [facility] Unavailable Andressa Ruiz-C Unavailable Suzan Harry MD Unavailable [phone] Yasmeen Powers MD Unavailable [phone] Yasmeen Powers MD Unavailable [phone] Encounter Details Date Type Department Care Team (Late st Contact Info) Description 10/26/2021 External Order Results [facility] [address] [place] [address] Outside, Provider Social History Tobacco Use Types [...] - BLOOD ORDERABL ES Performing Organization Address [facility] Co de Phone Number ERICKEZE PFT NON-INTERFACED (ONBASE SCANS) * (ABNORMAL) Troponin I (10/25/2021 6:55 AM CDT) Troponin I (External) 0.07(H) 0.01 - 0.04 ng/mL NON-INTERFACED (ONBASE SCANS) Blood 10/25/2021 6:55 AM CDT Narrative BREEZE PFT - 11/13/2021 9:26 AM CDT Verified by Pedrito Stallworth on 11/12/2021. [place] BourgeoisYony LAB - BLOOD ORDERABL ES Performing Organization Address [facility] Co de Phone Number AMNAE PFT NON-INTERFACED [...] - BLOOD ORDERABL ES Performing Organization Address [facility] Co de Phone Number SAMANTHA PFT NON-INTERFACED [...] - BLOOD ORDERABL ES Performing Organization Address [facility]/ZIP Co de Phone Number SAMANTHA PFT [...] - BLOOD ORDERABL ES Performing Organization Address [facility]/ZIP Co de Phone Number BREEZE PFT NON-INTERFACED (ONBASE SCANS) * (ABNORMAL) External Lab Results (10/24/2021 3:53 PM CDT) Scan Lab Results (External) see scan(A) NON-INTERFACE D (ONBASE SCANS) Comment:CDIFF, C Diff. Tox 10/24/2021 3:53 PM CDT Narrative BREEZE PFT - 11/13/2021 9:26 AM CDT Verified by Pedrito Stallworth on 11/13/2021. [place] Bhakta LABORATORY Performing Organization Address [facility] Co de Phone Number BREEZE PFT NON-INTERFACED (ONBASE SCANS) * (ABNORMAL) D dimer quantitative (10/24/2021 9:00 AM CDT) Pathologist [facility] D Dimer Quantitative (External) 0.90(H) 0.00 - 0.50 ug/mL NON-INTERFACE D (ONBASE SCANS) Blood 10/24/2021 9:00 AM CDT Narrative BREEZE PFT - 11/12/2021 3:44 PM CDT Verified by Brisa Jackson on 11/12/2021. Provider Outside LAB - BLOOD ORDERABL Performing Organization Address [facility] Co de Phone Number BREEZE PFT NON-INTERFACED [...] - BLOOD ORDERABL ES Performing Organization Address [facility] de Phone Number AMNAE PFT NON-INTERFACED (ONBASE SCANS) * (ABNORMAL) CRP inflammation (10/24/2021 8:21 AM CDT) CRP Inflammation (External) 4.7(H) 0.5 - 1.0 MG/DL NON-INTERFACE D (ONBASE SCANS) Blood 10/24/2021 8:21 AM CDT Narrative BREEZE PFT - 11/13/2021 9:26 AM CDT Verified by Pedrito Stallworth on 11/13/2021. [place] Yony LAB - BLOOD ORDERABL ES Performing Organization Address [facility] de Phone Number AMNAE PFT NON-INTERFACED (ONBASE SCANS) * (ABNORMAL) Troponin I (10/24/2021 8:21 AM CDT) Troponin I (External) 0.13(H) 0.01 - 0.04 NG/ML NON-INTERFACED (ONBASE SCANS) Blood 10/24/2021 8:21 AM CDT Narrative BREEZE PFT - 11/13/2021 9:26 AM CDT Verified by Pedrito Stallworth on 11/13/2021. [place] Bhakta LAB - BLOOD ORDERABL ES Performing Organization Address [facility]/ZIP Co de Phone Number BREEZE PFT NON-INTERFACED (ONBASE SCANS) * Magnesium (10/24/2021 8:21 AM CDT) Magnesium (External) 1.5 1.5 - 2.6 mg/dL NON-INTERFACED (ONBASE SCANS) Blood 10/24/2021 8:21 AM CDT Narrative ERICKEZE PFT - 11/13/2021 9:26 AM CDT Verified by Pedrito Stallworth on 11/12/2021. [place] Vargasraes LAB - BLOOD ORDERABL ES Performing Organization Address [facility] Co de Phone Number ERICKEZE PFT NON-INTERFACED [...] - BLOOD ORDERABL ES Performing Organization Address [facility] Co de Phone Number AMNAE PFT NON-INTERFACED [...] - BLOOD ORDERABL ES Performing Organization Address [facility] Co de Phone Number BREEZE PFT NON-INTERFACED (ONBASE SCANS) * Lipase (10/23/2021 6:30 AM CDT) Lipase Level Low Scale (External) 28 23 - 300 U/L NON-INTERFACED (ONBASE SCANS) Blood 10/23/2021 6:30 AM CDT Narrative BREEZE PFT - 11/13/2021 9:26 AM CDT Verified by Pedrito Stallworth on 11/12/2021. [place] Bhakta LAB - BLOOD ORDERABL ES Performing Organization Address [facility] de Phone Number BREEZE PFT NON-INTERFACED (ONBASE SCANS) * Lactic acid whole blood (10/23/2021 6:30 AM CDT) Lactic Acid (External) 0.6 0.5 - 1.9 mmol/L NON-INTERFACED (ONBASE SCANS) Blood 10/23/2021 6:30 AM CDT Narrative BREEZE PFT - 11/13/2021 9:26 AM CDT Verified by Pedrito Stallworth on 11/12/2021. [place] Bhakta LAB - BLOOD ORDERABL ES Performing Organization Address [facility] Co de Phone Number BREEZE PFT NON-INTERFACED (ONBASE SCANS) * (ABNORMAL) CRP inflammation (10/23/2021 6:30 AM CDT) CRP Inflammation (External) 2.0(H) 0.5 - 1.0 mg/dL NON-INTERFACE D (ONBASE SCANS) Blood 10/23/2021 6:30 AM CDT Narrative BREEZE PFT - 11/13/2021 9:26 AM CDT Verified by Pedrito Stallworth on 11/12/2021. [place] Bhakta LAB - BLOOD ORDERABL ES Performing Organization Address [facility] de Phone Number AMNAE PFT NON-INTERFACED (ONBASE SCANS) * (ABNORMAL) Lactate Dehydrogenase (10/23/2021 6:30 AM CDT) LD (External) 665(H) 313 - 618 U/L NON-INTERFACED (ONBASE SCANS) Blood 10/23/2021 6:30 AM CDT Narrative AMNAE PFT - 11/13/2021 9:26 AM CDT Verified by Pedrito Stallworth on 11/12/2021. [place] BourgeoisYony LAB - BLOOD ORDERABL Performing Organization Address [facility] de Phone Number ERICKEZE PFT NON-INTERFACED (ONBASE [...] - BLOOD ORDERABL ES Performing Organization Address [facility] Co de Phone Number BREEZE PFT NON-INTERFACED [...] - BLOOD ORDERABL ES Performing Organization Address [facility]/ZIP Co de Phone Number BREEZE PFT [...] Verified by Brisa Jackson on 11/12/2021. Provider [facility] LAB - BLOOD ORDERABL ES Performing Organization Address [facility] Co de Phone Number BREEZE PFT NON-INTERFACED (ONBASE SCANS) * (ABNORMAL) Troponin I (10/22/2021 8:30 PM CDT) Troponin I (External) 0.92(H) 0.01 - 0.04 ng/ml NON-INTERFACED (ONBASE SCANS) Blood 10/22/2021 8:30 PM CDT Narrative BREEZE PFT - 11/13/2021 9:26 AM CDT Verified by Pedrito Stallworth on 11/13/2021. [place] Yony LAB - BLOOD ORDERABL Performing Organization Address [facility] de Phone Number BREEZE PFT NON-INTERFACED (ONBASE SCANS) * Lactic acid whole blood (10/22/2021 5:08 PM CDT) Lactic Acid (External) 1.4 0.5 - 1.9 mmol/L NON-INTERFACED (ONBASE SCANS) Blood 10/22/2021 5:08 PM CDT Narrative BREEZE PFT - 11/13/2021 9:26 AM CDT Verified by Pedrito Stallworth on 11/13/2021. [place] Yony LAB - BLOOD ORDERABL ES Performing Organization Address [facility] de Phone Number BREEZE PFT NON-INTERFACED (ONBASE SCANS) * (ABNORMAL) Troponin I (10/22/2021 5:08 PM CDT) Troponin I (External) 0.99(H) 0.01 - 0.04 ng/ml NON-INTERFACED (ONBASE SCANS) Blood 10/22/2021 5:08 PM CDT Narrative BREEZE PFT - 11/13/2021 9:26 AM CDT Verified by Pedrito Stallworth on 11/13/2021. [place] Bhakta LAB - BLOOD [facility] Performing Organization Address [facility] de Phone Number ERICKEZE PFT NON-INTERFACED (ONBASE SCANS) * (ABNORMAL) Glucose (10/22/2021 3:30 PM CDT) Glucose (External) 166(H) 60 - 115 MG/DL NON-INTERFACED (ONBASE SCANS) Blood 10/22/2021 3:30 PM CDT Narrative BREEZE PFT - 11/13/2021 9:26 AM CDT Verified by Pedrito Stallworth on 11/13/2021. [place] Bhakta LAB - BLOOD [facility] Performing Organization Address [facility] Phone Number ERICKEZE PFT NON-INTERFACED (ONBASE SCANS) * (ABNORMAL) Troponin I (10/22/2021 8:05 AM CDT) Troponin I (External) 0.33(H) 0.01 - 0.04 ng/mL NON-INTERFACED (ONBASE SCANS) Blood 10/22/2021 8:05 AM CDT Narrative BREEZE PFT - 11/13/2021 9:26 AM CDT Verified by Pedrito Stallworth on 11/12/2021. [place] Bhakta LAB - BLOOD [facility] Performing Organization Address [facility] de Phone Number ERICKEZE PFT NON-INTERFACED (ONBASE [...] LAB - BLOOD ORDERABL Performing Organization Address [facility] de Phone Number BREEZE PFT NON-INTERFACED (ONBASE SCANS) * Lactic acid whole blood (10/22/2021 4:40 AM CDT) Lactic Acid (External) 1.4 0.5 - 1.9 mmol/L NON-INTERFACED (ONBASE SCANS) Blood 10/22/2021 4:40 AM CDT Narrative BREEZE PFT - 11/13/2021 9:26 AM CDT Verified by Pedrito Stallworth on 11/13/2021. [place] Bhakta LAB [facility] Performing Organization Address [facility] de Phone Number ERICKEZE PFT NON-INTERFACED (ONBASE SCANS) * (ABNORMAL) Lactate Dehydrogenase (10/22/2021 4:40 AM CDT) LD (External) 637(H) 313 - 618 U/L NON-INTERFACED (ONBASE SCANS) Blood 10/22/2021 4:40 AM CDT Narrative BREEZE PFT - 11/13/2021 9:26 AM CDT Verified by Pedrito Stallworth on 11/12/2021. [place] Bhakta LAB - BLOOD ORDERABL Performing Organization Address [facility] de Phone Number BREEZE PFT NON-INTERFACED (ONBASE SCANS) * (ABNORMAL) N terminal pro BNP outpatient (10/22/2021 4:40 AM CDT) N-Terminal Pro BNP (External) 682(H) 0 - 125 PG/mL NON-INTERFACED (ONBASE SCANS) Blood 10/22/2021 4:40 AM CDT Narrative BREEZE PFT - 11/13/2021 9:26 AM CDT Verified by Pedrito Stallworth on 11/12/2021. [place] BourgeoisYony LAB - BLOOD ORDERABL ES Performing Organization Address [facility] de Phone Number ERICKEZE PFT NON-INTERFACED (ONBASE SCANS) * (ABNORMAL) Troponin I (10/22/2021 4:40 AM CDT) Pathologist [facility] Troponin I (External) 0.12(H) 0.01 - 0.04 ng/ml NON-INTERFACED (ONBASE SCANS) Blood 10/22/2021 4:40 AM CDT Narrative BREEZE PFT - 11/13/2021 9:26 AM CDT Verified by Pedrito Stallworth on 11/13/2021. [place] Bhakta LAB - BLOOD ORDERABL Performing Organization Address [facility] de Phone Number ERICKEZE PFT NON-INTERFACED (ONBASE [...] 4+(A) Negative NON-INTERFAC ED (ONBASE SCANS) Specific [place] Urine (External) 1.015 1.000 - 1.030 NON-INTERFAC [...] - URINE ORDERABL ES Performing Organization Address [facility]/ZIP Co de Phone Number BREEZE PFT NON-INTERFACED (ONBASE SCANS) * External Lab Results (10/22/2021 12:18 AM CDT) Scan Lab Results (External) Negative NON-INTERFACE D (ONBASE SCANS) Comment: Influenza A Influenza B 10/22/2021 12:1 8 AM CDT Narrative BREEZE PFT - 11/13/2021 9:26 AM CDT Verified by Pedrito Stallworth on 11/13/2021. [place] Bhakta LABORATORY Performing Organization Address [facility] de Phone Number BREEZE PFT NON-INTERFACED (ONBASE SCANS) * COVID-19 Virus (Coronavirus) by PCR (External Result) (10/21/2021 11:17 PM CDT) COVID-19 Virus by PCR (External Result) Negative Negative NON-INTERFACE D (ONBASE SCANS) 10/21/2021 11:1 7 PM CDT Narrative BREEZE PFT - 11/13/2021 9:26 AM CDT Verified by Pedrito Stallworth on 11/13/2021. [place] Yony LABORATORY Performing Organization Address [facility]/ZIP Co de Phone Number BREEZE PFT NON-INTERFACED (ONBASE SCANS) * (ABNORMAL) External Lab Results (10/21/2021 11:10 PM CDT) Scan Lab Results (External) <0.01(L) 0.01 - 0.03 % NON-INTERFACE D (ONBASE SCANS) Comment:Ethanol 10/21/2021 11:1 0 PM CDT Narrative BREEZE PFT - 11/13/2021 9:26 AM CDT Verified by Pedrito Stallworth on 11/13/2021. [place] Bhakta LABORATORY Performing Organization Address [facility] Co de Phone Number BREEZE PFT NON-INTERFACED [...] - BLOOD ORDERABL ES Performing Organization Address [facility] de Phone Number BREEZE PFT NON-INTERFACED (ONBASE SCANS) * Lipase (10/21/2021 11:10 PM CDT) Lipase Level (External) 39 29 - 300 U/L NON-INTERFACED (ONBASE SCANS) Blood 10/21/2021 11:1 0 PM CDT Narrative BREEZE PFT - 11/13/2021 9:26 AM CDT Verified by Pedrito Stallworth on 11/12/2021. [place] Yony LAB - BLOOD ORDERABL ES Performing Organization Address [facility] Co de Phone Number BREEZE PFT NON-INTERFACED (ONBASE SCANS) * (ABNORMAL) Lactic acid whole blood (10/21/2021 11:10 PM CDT) Lactic Acid (External) 3.0(H) 0.5 - 1.9 mmol/L NON-INTERFACED (ONBASE SCANS) Blood 10/21/2021 11:1 0 PM CDT Narrative BREEZE PFT - 11/13/2021 9:26 AM CDT Verified by Pedrito Stallworth on 11/13/2021. [place] Bhakta LAB - BLOOD ORDERABL Performing Organization Address [facility] Co de Phone Number BREEZE PFT NON-INTERFACED (ONBASE SCANS) * (ABNORMAL) Lactate Dehydrogenase (10/21/2021 11:10 PM CDT) LD (External) 815(H) 313 - 618 IU/L NON-INTERFACED (ONBASE SCANS) Blood 10/21/2021 11:1 0 PM CDT Narrative BREEZE PFT - 11/13/2021 9:26 AM CDT Verified by Pedrito Stallworth on 11/13/2021. [place] Bhakta LAB - BLOOD [facility] Performing Organization Address [facility] de Phone Number BREEZE PFT NON-INTERFACED (ONBASE SCANS) * (ABNORMAL) N terminal pro BNP outpatient (10/21/2021 11:10 PM CDT) N-Terminal Pro BNP (External) 597(H) 0 - 125 pg/ml NON-INTERFACED (ONBASE SCANS) Blood 10/21/2021 11:1 0 PM CDT Narrative BREEZE PFT - 11/13/2021 9:26 AM CDT Verified by Pedrito Stallworth on 11/13/2021. [place] Bhakta LAB - BLOOD ORDERABL Performing Organization Address [facility] Co de Phone Number BREEZE PFT NON-INTERFACED [...] - BLOOD ORDERABL ES Performing Organization Address City/[facility]/ZIP Co de Phone Number BREEZE PFT NON-INTERFACED (ONBASE SCANS) * (ABNORMAL) Glucose (10/21/2021 10:45 PM CDT) Glucose (External) 208(H) 60 - 115 MG/DL NON-INTERFACED (ONBASE SCANS) Blood 10/21/2021 10:4 5 PM CDT Narrative BREEZE PFT - 11/13/2021 9:26 AM CDT Verified by Pedrito Stallworth on 11/13/2021. [place] Bhakta LAB - BLOOD ORDERABL ES Performing Organization Address [facility]/ZIP Co de Phone Number ERICKEZE PFT [...] documented as of this encounter Care Teams Riding Instructor Relationship Specialty Start Date End Date Rubén Boyle MD PCP - General Family Practice 03/08/16 Pamela Blanco LOG HANDLER [facility] [address] [place], [place] [address] Referring Physician 07/13/16 Pedro Segura MD [facility] [address] [place], [place] [id number] Nephrology 10/03/16 Freddy Craft MD [address] [facility] [address] [place] [address] Assigned Gastroenterology Provider 02/08/20 Abdifatah Van MD [address] [facility] [address] [place] [address] Assigned Nephrology Provider 07/13/20 11/07/23 Nicole Carranza NP 420 [facility] [address] [place] [address] Assigned Heart and Vascular Provider 01/09/22 Andressa Ruiz PA-C 420 [facility] 803 [place] [address] Physician Open Source Developer Endocrinology, Diabetes, and Metabolism 03/01/22 Ashlyn Storm, RN [facility] [address] [place], [place] [id number] Registered Nurse 03/03/22 09/15/22 Rubén Gunter [facility] [address] [place] [address] Assigned MTM Pharmacist 02/27/22 Andressa Ruiz PA-C 420 [facility] [address] [place], [place] [address] Assigned Endocrinology Provider 03/13/22 09/07/23 Suzan Harry MD 420 [place], [place] [address] Nephrology 06/30/23 Yasmeen Powers MD [address] [place] [address] Nephrology 10/24/23 Yasmeen Powers MD [address] [place] [address] Assigned Nephrology Provider 11/08/23 documented as of this encounter
--- OUTSIDE RECORDS SUMMARY | 2024-01-17 16:43 | XMS_ITS | Encounter Summary ---
Author Organization [place] Address [address] [place] [address] Care Team Providers Care Journeyman Power Plant Operator Name Role Phone Rubén Boyle MD Primary Care Provider [phone] Pamela Blanco MILITARY ANALYST Unavailable Pedro Segura MD Unavailable Freddy Craft MD Unavailable Abdifatah Van MD Unavailable Nicole Carranza MILITARY ANALYST Unavailable [phone] Andressa Ruiz-C Unavailable Ashlyn Storm RN Unavailable [phone] Rubén Gunter [facility] Unavailable Andressa Ruiz-C Unavailable Suzan Harry MD Unavailable [phone] Yasmeen Powers MD Unavailable [phone] Yasmeen Powers MD Unavailable [phone] Encounter Details Date Type Department Care Team (Late st Contact Info) Description 09/14/2021 External Order Results [facility] [address] [place] [address] Outside, Provider Status post kidney transplant; History [...] MD LAB - BLOOD ORDERABL ES [facility] NON-INTERFACED (ONBASE SCANS) * (ABNORMAL) Basic [...] documented as of this encounter Care Teams Journeyman Power Plant Operator Relationship Specialty Start Date End Date Rubén Boyle MD PCP - General Family Practice 03/08/16 Pamela Blanco NP [facility] [address] [place], [place] [id number] Referring Physician 07/13/16 Pedro Segura MD [facility] [address] [place] [address] Nephrology 10/03/16 Freddy Craft MD [address] [facility] [address] [place], [place] [address] Assigned Gastroenterology Provider 02/08/20 Abdifatah Van MD [address] [place] [address] Assigned Nephrology Provider 07/13/20 11/07/23 Nicole Carranza NP 420 [facility] [address] [place] [address] Assigned Heart and Vascular Provider 01/09/22 Andressa Ruiz PA-C 420 [facility] [address] [place], [place] [address] Physician Nurse Transplant Endocrinology, Diabetes, and Metabolism 03/01/22 Ashlyn Storm, RN [facility] 711 [place], [place] [address] Registered Nurse 03/03/22 09/15/22 Rubén Gunter [facility] [address] [place], [place] [address] Assigned MTM Pharmacist 02/27/22 Andressa Ruiz PA-C 420 [facility] [address] [place], [place] [address] Assigned Endocrinology Provider 03/13/22 09/07/23 Suzan Harry MD [address] [place] [address] Nephrology 06/30/23 Yasmeen Powers MD 500 [place], [place] [address] Nephrology 10/24/23 Yasmeen Powers MD 500 [place] [address] Assigned Nephrology Provider 11/08/23 documented as of this encounter
--- OUTSIDE RECORDS SUMMARY | 2024-01-17 16:43 | XMS_ITS | Encounter Summary ---
Author Organization [place] Address [address] [place] [address] Care Team Providers Care Senior Scrum Master Name Role Phone Rubén Boyle MD Primary Care Provider Pamela Blanco WIRE COATING OPERATOR METAL Unavailable Pedro Segura MD Unavailable [phone] Freddy Craft MD Unavailable [phone] Abdifatah Van MD Unavailable Nicole Carranza WIRE COATING OPERATOR METAL Unavailable [phone] Andressa Ruiz-C Unavailable [phone] Ashlyn Storm RN Unavailable [phone] Rubén Gunter [facility] Unavailable Andressa Ruiz-C Unavailable Suzna Harry MD Unavailable [phone] Yasmeen Powers MD Unavailable [phone] Yasmeen Powers MD Unavailable [phone] Encounter Details Date Type Department Care Team (Late st Contact Info) Description 01/28/2021 External Order Results [facility] [address] [place] [address] Outside, Provider Lipid screening; Liver replaced by [...] - URINE ORD ERALASHAE Performing Organization Address [facility] Co de Phone Number BREEZE [...] - BLOOD ORD ERABLES Performing Organization Address City/[facility]/ZIP Co de Phone Number ERICKEZE PFT NON-INTERFACED [...] documented as of this encounter Care Teams Senior Scrum Master Relationship Specialty Start Date End Date Rubén Boyle MD PCP - General Family Practice 03/08/16 Pamela Blanco NP [facility] [address] [place], [place] [address] Referring Physician 07/13/16 Pedro Segura MD [facility] [address] [place], [place] [address] Nephrology 10/03/16 Freddy Craft MD [address] [facility] [address] [place], [place] [address] Assigned Gastroenterology Provider 02/08/20 Abdifatah Van MD [address] [facility] [address] [place] [address] Assigned Nephrology Provider 07/13/20 11/07/23 Nicole Carranza NP 420 [facility] [address] [place], [place] [address] Assigned Heart and Vascular Provider 01/09/22 Andressa Ruiz PA-C 420 [facility] 803 [place], [place] [address] Physician Manager Community Relations Endocrinology, Diabetes, and Metabolism 03/01/22 Ashlyn Storm, RN [facility] 7[address] [place] [address] Registered Nurse 03/03/22 09/15/22 Rubén Gunter [facility] 9[address] [place] [address] Assigned MTM Pharmacist 02/27/22 Andressa Ruiz PA-C 420 [facility] [address]03 [place], [place] [address] Assigned Endocrinology Provider 03/13/22 09/07/23 Suzan Harry MD 420 [place], [place] [address] Nephrology 06/30/23 Yasmeen Powers MD 500 [place] [address] Nephrology 10/24/23 Yasmeen Powers MD 500 [place] [address] Assigned Nephrology Provider 11/08/23 documented as of this encounter
--- OUTSIDE RECORDS SUMMARY | 2024-01-17 16:43 | XMS_ITS | Encounter Summary ---
Author Organization [place] Address [address] [place] [address] Care Team Providers Care Procedure Rn Name Role Phone Rubén Boyle MD Primary Care Provider Pamela Blanco CUSTOMER MANAGEMENT SPECIALIST Unavailable [phone] Pedro Segura MD Unavailable [phone] Freddy Craft MD Unavailable [phone] Abdifatah Van MD Unavailable Nicole Carranza CUSTOMER MANAGEMENT SPECIALIST Unavailable [phone] Andressa Ruiz-C Unavailable Ashlyn Storm RN Unavailable Rubén Gunter [facility] Unavailable Andressa Ruiz-C Unavailable Suzan Harry MD Unavailable [phone] Yasmeen Powers MD Unavailable [phone] Yasmeen Powers MD Unavailable [phone] Encounter Details Date Type Department Care Team (Late st Contact Info) Description 10/22/2021 External Order Results [facility] [address] [place] [address] Outside, Provider Social History Tobacco Use Types [...] documented as of this encounter Care Teams Procedure Rn Relationship Specialty Start Date End Date Rubén Boyle MD PCP - General Family Practice 03/08/16 Pamela Blanco CUSTOMER MANAGEMENT SPECIALIST [facility] [address] [place] [address] Referring Physician 07/13/16 Pedro Segura MD [facility] [address] [place] [address] Nephrology 10/03/16 Freddy Craft MD 516 [facility] [place], [place] [address] Assigned Gastroenterology Provider 02/08/20 Abdifatah Van MD 717 [facility] [address] [place], [place] 77[address] Assigned Nephrology Provider 07/13/20 11/07/23 Nicole Carranza NP 420 [facility] 508 [place] [address] Assigned Heart and Vascular Provider 01/09/22 Andressa Ruiz PA-C 420 [facility] 803 [place] [address] Physician Letter Stamping Machine Operator Endocrinology, Diabetes, and Metabolism 03/01/22 Ashlyn Storm, RN [facility] 711 [place] [address] Registered Nurse 03/03/22 09/15/22 Rubén Gunter [facility] [address] [place] [address] Assigned MTM Pharmacist 02/27/22 Andressa Ruiz PA-C 420 [facility] 803 [place] [address] Assigned Endocrinology Provider 03/13/22 09/07/23 Suzan Harry MD [address] [place] [address] Nephrology 06/30/23 Yasmeen Powers MD 500 [place] [address] Nephrology 10/24/23 Yasmeen Powers MD 500 [place] [address] Assigned Nephrology Provider 11/08/23 documented as of this encounter
--- OUTSIDE RECORDS SUMMARY | 2024-01-17 16:44 | XMS_ITS | Encounter Summary ---
Author Organization [place] Address [address] [place] [address] Care Team Providers Care Registered Radiologic Technologist Name Role Phone Rubén Boyle MD Primary Care Provider Pamela Blanco SENIOR ONLINE MARKETING MANAGER Unavailable Pedro Segura MD Unavailable [phone] Freddy Craft MD Unavailable [phone] Abdifatah Van MD Unavailable Nicole Carranza SENIOR ONLINE MARKETING MANAGER Unavailable [phone] Andressa Ruiz-C Unavailable Ashlyn Storm RN Unavailable [phone] Rubén Gunter [facility] Unavailable Andressa Ruiz-C Unavailable Suzan Harry MD Unavailable [phone] Yasmeen Powers MD Unavailable [phone] Yasmeen Powers MD Unavailable [phone] Encounter Details Date Type Department Care Team (Latest Contact Info) Description 05/13/2020 External Order Results [facility] [address] [place] [address] Outside, Provider History of liver [...] EXTERNAL LAB RESULTS Routine 05/13/2020 8:50 AM DRIER OPERATOR HEAD TACROLIMUS BY TANDEM MASS SPECTROMETRY Routine 05/13/2020 8:50 AM DRIER OPERATOR HEAD History of liver transplant (H) Status post kidney transplant Long-term use of immunosuppressant medication MAGNESIUM Routine 05/13/2020 8:50 AM DRIER OPERATOR HEAD History of liver transplant (H) Status post kidney transplant Long-term use of immunosuppressant medication LIPID PROFILE Routine 05/13/2020 8:50 AM DRIER OPERATOR HEAD Lipid screening 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) HEPATITIS C ANTIBODY Routine 05/13/2020 8:50 AM DRIER OPERATOR HEAD HEPATITIS B SURFACE ANTIGEN Routine 05/13/2020 8:50 AM DRIER OPERATOR HEAD HEPATITIS B CORE ANTIBODY Routine 05/13/2020 8:50 AM DRIER OPERATOR HEAD DIFFERENTIAL Routine 05/13/2020 8:50 AM DRIER OPERATOR HEAD BASIC METABOLIC PANEL Routine 05/13/2020 8:50 AM DRIER OPERATOR HEAD History of liver transplant (H) Status post kidney transplant Long-term use of immunosuppressant medication CBC WITH PLATELETS Routine 05/13/2020 8: 50 AM DRIER OPERATOR HEAD History of liver transplant (H) Status post kidney transplant Long-term use of immunosuppressant medication documented in this encounter Results * Tacrolimus level (05/13/2020 8:50 AM DRIER OPERATOR HEAD) Tacrolimus(FK-5 06) (External) 4.6 See scan ng/mL LABDE SCAN Blood specimen (specimen) 05/13/2020 8:50 AM DRIER OPERATOR HEAD Narrative [facility] PFT - 05/18/2020 10:10 AM DRIER OPERATOR HEAD Verified by Cruzito Marlow on 05/18/2020. Freddy Dumont MD LAB - BLOOD ORD ERABLES [facility] LABDE SCAN * (ABNORMAL) Lipid Profile (05/13/2020 8:50 AM DRIER OPERATOR HEAD) Cholesterol (External) 220(H) 90 - 200 MG/DL LABDE SCAN Triglycerides (External) 386(H) 40 - 197 MG/DL LABDE SCAN LDL-Cholesterol (External) 104(H) <100 mg/dl LABDE SCAN HDL Cholesterol (External) 39(L) >=40 mg/dL LABDE SCAN Blood specimen (specimen) 05/13/2020 8:50 AM DRIER OPERATOR HEAD Narrative [facility] - 05/18/2020 10:10 AM DRIER OPERATOR HEAD Verified by Cruzito Marlow on 05/18/2020. Freddy Dumont MD LAB - BLOOD ORD ERABLES [facility] LABDE SCAN * Magnesium (05/13/2020 8:50 AM DRIER OPERATOR HEAD) Magnesium (External) 1.9 1.5 - 2.6 MG/DL LABDE SCAN Blood specimen (specimen) 05/13/2020 8:50 AM DRIER OPERATOR HEAD Narrative [facility] - 05/18/2020 10:10 AM DRIER OPERATOR HEAD Verified by Cruzito Marlow on 05/18/2020. Freddy Dumont MD LAB - BLOOD ORD ERABLES [facility] LABDE SCAN * (ABNORMAL) Basic metabolic panel (05/13/2020 8:50 AM DRIER OPERATOR HEAD) Glucose (External) 316(H) 60 - 115 mg/dL [...] SCAN Blood specimen (specimen) 05/13/2020 8:50 AM DRIER OPERATOR HEAD Narrative [facility] PFT - 05/18/2020 10:10 AM DRIER OPERATOR HEAD Verified by Cruzito Marlow on 05/18/2020. Freddy Dumont MD LAB - BLOOD ORD ERABLES Performing Organization Address [facility] Co de Phone Number [facility] PFT LABDE SCAN * (ABNORMAL) WBC Differential (05/13/2020 8:50 AM DRIER OPERATOR HEAD) % Neutrophils (External) 68.6 50.0 - 70.0 [...] SCAN Blood specimen (specimen) 05/13/2020 8:50 AM DRIER OPERATOR HEAD Narrative [facility] - 05/18/2020 10:10 AM DRIER OPERATOR HEAD Verified by Cruzito Marlow on 05/18/2020. Patient Reported LAB - BLOOD [facility]ABL ES [facility] * (ABNORMAL) CBC with platelets (05/13/2020 8:50 AM DRIER OPERATOR HEAD) WBC Count (External) 4.30(L) 5.00 - 10.00 [...] SCAN Blood specimen (specimen) 05/13/2020 8:50 AM DRIER OPERATOR HEAD Narrative [facility] PFT - 05/18/2020 10:10 AM DRIER OPERATOR HEAD Verified by Cruzito Marlow on 05/18/2020. Freddy Dumont MD LAB - BLOOD ORD ERABLES [facility] PFT LABDE SCAN * Hepatitis C antibody (05/13/2020 8:50 AM DRIER OPERATOR HEAD) Hepatitis C Antibody (External) Negative Negative LABDE SCAN Blood specimen (specimen) 05/13/2020 8:50 AM DRIER OPERATOR HEAD Narrative [facility] - 05/15/2020 7:27 AM DRIER OPERATOR HEAD Verified by Cruzito Marlow on 05/15/2020. Patient Reported LAB - BLOOD ORDERABL ES Performing Organization Address City/[facility]/ZIP Co de Phone Number [facility] LABDE SCAN * Hepatitis B core antibody (05/13/2020 8:50 AM DRIER OPERATOR HEAD) Hepatitis B Core Anette (External) Negative Negative LABDE SCAN Blood specimen (specimen) 05/13/2020 8:50 AM DRIER OPERATOR HEAD Narrative [facility] - 05/15/2020 7:27 AM DRIER OPERATOR HEAD Verified by Cruzito Marlow on 05/15/2020. Patient Reported LAB - BLOOD ORDERABL ES Performing Organization Address [facility] Co de Phone Number [facility] PFT LABDE SCAN * External Lab Results (05/13/2020 8:50 AM DRIER OPERATOR HEAD) Scan Lab Results (External) Negative Negative LABDE SCAN Comment:HEP A AB IGM. 05/13/2020 8:50 AM DRIER OPERATOR HEAD Narrative [facility] - 05/15/2020 7:27 AM DRIER OPERATOR HEAD Verified by Cruzito Marlow on 05/15/2020. Patient Reported LABORATORY Performing Organization Address City/[facility] Co de Phone Number [facility] LABDE SCAN * Hepatitis B surface antigen (05/13/2020 8:50 AM DRIER OPERATOR HEAD) Hep B Surface Agn (External) Negative Negative LABDE SCAN Blood specimen (specimen) 05/13/2020 8:50 AM DRIER OPERATOR HEAD Narrative [facility] - 05/15/2020 7:27 AM DRIER OPERATOR HEAD Verified by Cruzito Marlow on 05/15/2020. Patient [...] documented as of this encounter Care Teams Registered Radiologic Technologist Relationship Specialty Start Date End Date Rubén Boyle MD PCP - General Family Practice 03/08/16 Pamela Blanco NP [facility] [address] [place], [place] [address] Referring Physician 07/13/16 Pedro Segura MD [facility] [address] [place] [address] Nephrology 10/03/16 Freddy Craft MD 516 [facility] [address] [place] [address] Assigned Gastroenterology Provider 02/08/20 Abdifatah Van MD [address] [facility] [address] [place] [address] Assigned Nephrology Provider 07/13/20 11/07/23 Nicole Carranza NP 420 [facility] [address] [place] [address] Assigned Heart and Vascular Provider 01/09/22 Andressa Ruiz PA-C 420 [facility] 803 [place], [place] 211015 Physician Business Systems Technician Endocrinology, Diabetes, and Metabolism 03/01/22 Ashlyn Storm RN [facility] 711 [place] [address] Registered Nurse 03/03/22 09/15/22 Rubén Gunter [facility] [address] [place] [address] Assigned MTM Pharmacist 02/27/22 Andressa Ruiz PA-C [address] [address] Assigned Endocrinology Provider 03/13/22 09/07/23 Suzan Harry MD 420 [place], [place] 35[address]15 Nephrology 06/30/23 Yasmeen Powers MD 500 [place] [address] Nephrology 10/24/23 Yasmeen Powers MD 500 [place] [address] Assigned Nephrology Provider 11/08/23 documented as of this encounter
--- OUTSIDE RECORDS SUMMARY | 2024-01-17 16:44 | XMS_ITS | Encounter Summary ---
Author Organization [place] Address [address] [place] [address] Care Team Providers Care Biometrics Specialist Name Role Phone Rubén Boyle MD Primary Care Provider Pamela Blanco LABOR RELATIONS SUPERVISOR Unavailable [phone] Pedro Segura MD Unavailable [phone] Freddy Craft MD Unavailable Abdifatah Van MD Unavailable Nicole Carranza LABOR RELATIONS SUPERVISOR Unavailable [phone] Andressa Ruiz-C Unavailable Ashlyn Storm RN Unavailable Rubén Gunter [facility] Unavailable Andressa Ruiz-C Unavailable [phone] Suzan Harry MD Unavailable [phone] Yasmeen Powers MD Unavailable [phone] Yasmeen Powers MD Unavailable [phone] Encounter Details Date Type Department Care Team (Latest Contact Info) Description 02/05/2020 External Order Results [facility] 909 [place] [address] Outside, Provider History of liver [...] specimen (specimen) 02/05/2020 12:00 PM CDT [facility]ative [facility] - 02/06/2020 12:16 PM CDT Verified by Yamil Santo on 02/06/2020. Patient Reported LAB - BLOOD ORDERABL ES [facility] LABDE SCAN * (ABNORMAL) Basic metabolic panel (02/05/2020 12:00 PM CDT) Pathologist [facility] Calcium (External) 8.9 8.4 - 10.6 mg/dL [...] specimen (specimen) 02/05/2020 12:00 PM CDT Narrative [facility] PFT - 02/06/2020 12:16 PM CDT Verified [...] documented as of this encounter Care Teams Biometrics Specialist Relationship Specialty Start Date End Date Rubén Boyle MD PCP - General Family Practice 03/08/16 Pamela Blanco NP [facility] [address] [place], [place] 824447 Referring Physician 07/13/16 Pedro Segura MD [facility] [address] [place], [place] 651097 Nephrology 10/03/16 Freddy Craft MD [address] [place] [address] 252385 Assigned Gastroenterology Provider 02/08/20 Abdifatah Van MD 717 [facility] [address] [place] [address] Assigned Nephrology Provider 07/13/20 11/07/23 Nicole Carranza NP 420 [facility] 508 [place], [place] 852525 Assigned Heart and Vascular Provider 01/09/22 Andressa Ruiz PA-C 420 [facility] 803 [place], [place] 779785 Physician Corn Grinder Endocrinology, Diabetes, and Metabolism 03/01/22 Ashlyn Storm RN [facility] 711 [place], [place] 468824 Registered Nurse 03/03/22 09/15/22 [facility] 909 [place], [place] 883345 Assigned MTM Pharmacist 02/27/22 Andressa Ruiz PA-C 420 [facility] 803 [place], [place] 9[address]95 Assigned Endocrinology Provider 03/13/22 09/07/23 Suzan Harry MD 420 [place], [place] 9[address]005 Nephrology 06/30/23 Yasmeen Powers MD 500 [place] [address] Nephrology 10/24/23 Yasmeen Powers MD 500 [place] [address] Assigned Nephrology Provider 11/08/23 documented as of this encounter
--- OUTSIDE RECORDS SUMMARY | 2024-01-17 16:44 | XMS_ITS | Encounter Summary ---
Author Organization [place] Address [address] [place] [address] Care Team Providers Care Senior Budget Analyst Name Role Phone Rubén Boyle MD Primary Care Provider Pamela Blanco ADVISORY APPLICATION DEVELOPER Unavailable Pedro Segura MD Unavailable Freddy Craft MD Unavailable Abdifatah Van MD Unavailable Nicole Carranza ADVISORY APPLICATION DEVELOPER Unavailable [phone] Andressa Ruiz-C Unavailable Ashlyn Storm RN Unavailable Rubén Gunter [facility] Unavailable Andressa Ruiz-C Unavailable Suzan Harry MD Unavailable [phone] Yasmeen Powers MD Unavailable [phone] Yasmeen Powers MD Unavailable [phone] Encounter Details Date Type Department Care Team (Late st Contact Info) Description 02/11/2020 [facility] 909 [place] [address] Susan Trujillo RN Social History [...] as of this encounter Care Teams Senior Budget Analyst Relationship Specialty Start Date End Date Rubén Boyle MD PCP - General Family Practice 03/08/16 Pamela Blanco ADVISORY APPLICATION DEVELOPER [facility] [address] [place], [place] 314427 Referring Physician 07/13/16 Pedro Segura MD [facility] [address] [place], [place] 169627 Nephrology 10/03/16 Freddy Craft MD 516 [facility] [address] [place], [place] [address]745 Assigned Gastroenterology Provider 02/08/20 Abdifatah Van MD 717 [facility] [address] [place], [place] 471034 Assigned Nephrology Provider 07/13/20 11/07/23 Nicole Carranza NP 420 [facility] [address] [place], [place] 140745 Assigned Heart and Vascular Provider 01/09/22 Andressa Ruiz PA-C 420 [facility] 803 [place], [place] 057155 Physician Cane Furniture Maker Endocrinology, Diabetes, and Metabolism 03/01/22 Ashlyn Storm, RN [facility] 711 [place], [place] 418614 Registered Nurse 03/03/22 09/15/22 Rubén Gunter [facility] [address] [place] [address] Assigned MTM Pharmacist 02/27/22 Andressa Ruiz PA-C 420 [facility] 803 [place], [place] 112135 Assigned Endocrinology Provider 03/13/22 09/07/23 Suzan Harry MD 420 [place] [address] Nephrology 06/30/23 Yasmeen Powers MD 500 [place] [address] Nephrology 10/24/23 Yasmeen Powers MD 500 [place] [address] Assigned Nephrology Provider 11/08/23 documented as of this encounter
--- OUTSIDE RECORDS SUMMARY | 2024-01-17 16:44 | XMS_ITS | Encounter Summary ---
Author Organization [place] Address [address] [place] [address] Care Team Providers Care Muffler Mechanic Name Role Phone Rubén Boyle MD Primary Care Provider Pamela Blanco POWER CHISEL OPERATOR Unavailable Pedro Segura MD Unavailable Freddy Craft MD Unavailable [phone] Abdifatah Van MD Unavailable Nicole Carranza POWER CHISEL OPERATOR Unavailable [phone] Andressa Ruiz PA-C Unavailable Ashlyn Storm RN Unavailable Rubén Gunter [facility] Unavailable Andressa Ruiz-C Unavailable [phone] Suzan Harry MD Unavailable [phone] Yasmeen Powers MD Unavailable [phone] Yasmeen Powers MD Unavailable [phone] Encounter Details Date Type Department Care Team (Late st Contact Info) Description 03/07/2020 [facility] 909 [place] [address] Calli Hall RN Social History [...] documented as of this encounter Care Teams Muffler Mechanic Relationship Specialty Start Date End Date Rubén Boyle MD PCP - General Family Practice 03/08/16 Pamela Blanco POWER CHISEL OPERATOR [facility] [address] [place], [place] 219707 Referring Physician 07/13/16 Pedro Segura MD [facility] [address] [place], [place] 003917 Nephrology 10/03/16 Freddy Craft MD 516 [facility] [address] [place], [place] 101645 Assigned Gastroenterology Provider 02/08/20 Abdifatah Van MD 717 [facility] [address] [place], [place] 438734 Assigned Nephrology Provider 07/13/20 11/07/23 Nicole Carranza NP 420 [facility] 508 [place], [place] 711135 Assigned Heart and Vascular Provider 01/09/22 Andressa Ruiz PA-C 420 [facility] 803 [place], [place] 269125 Physician Commutator Inspector Endocrinology, Diabetes, and Metabolism 03/01/22 Ashlyn Storm, RN [facility] 711 [place], [place] 090904 Registered Nurse 03/03/22 09/15/22 Rubén Gunter [facility] [address] [place] [address] Assigned MTM Pharmacist 02/27/22 Andressa Ruiz PA-C 420 [facility] 803 [place], [place] 84[address]65 Assigned Endocrinology Provider 03/13/22 09/07/23 Suzan Harry MD 420 [place] [address] Nephrology 06/30/23 Yasmeen Powers MD 500 [place] [address] Nephrology 10/24/23 Yasmeen Powers MD 500 [place] [address] Assigned Nephrology Provider 11/08/23 documented as of this encounter
--- OUTSIDE RECORDS SUMMARY | 2024-01-17 16:44 | XMS_ITS | Encounter Summary ---
Author Organization [place] Address [address] [place] [address] Care Team Providers Care Internet Systems Administrator Name Role Phone Rubén Boyle MD Primary Care Provider Pamela Blanco WORKPLACE TRAINER AND ASSESSOR Unavailable Pedro Segura MD Unavailable Freddy Craft MD Unavailable Abdifatah Van MD Unavailable Nicole Carranza WORKPLACE TRAINER AND ASSESSOR Unavailable [phone] Andressa Ruiz-C Unavailable Ashlyn Storm RN Unavailable [phone] Rubén Gunter [facility] Unavailable Andressa Ruiz-C Unavailable Suzan Harry MD Unavailable [phone] Yasmeen Powers MD Unavailable [phone] Yasmeen Powers MD Unavailable [phone] Encounter Details Date Type Department Care Team (Late st Contact Info) Description 06/26/2020 [facility] 909 [place] [address] Laurie Carmen LPN Social History [...] documented as of this encounter Care Teams Internet Systems Administrator Relationship Specialty Start Date End Date Rubén Boyle MD PCP - General Family Practice 03/08/16 Pamela Blanco WORKPLACE TRAINER AND ASSESSOR [facility] [address] [place], [place] 161217 Referring Physician 07/13/16 Pedro Segura MD [facility] [address] [place], [place] 984597 Nephrology 10/03/16 Freddy Craft MD 516 [facility] [address] [place], [place] [address]78[address] Assigned Gastroenterology Provider 02/08/20 Abdifatah Van MD 717 [facility] [address] [place], [place] 256384 Assigned Nephrology Provider 07/13/20 11/07/23 Nicole Carranza NP 420 [facility] 508 [place], [place] 332375 Assigned Heart and Vascular Provider 01/09/22 Andressa Ruiz PA-C 420 [facility] 803 [place], [place] 0[address]205 Physician Fur Ironer Endocrinology, Diabetes, and Metabolism 03/01/22 Ashlyn Storm, RN [facility] 711 [place], [place] 235334 Registered Nurse 03/03/22 09/15/22 Rubén Gunter [facility] [address] [place] [address] Assigned MTM Pharmacist 02/27/22 Andressa Ruiz PA-C 420 [facility] 803 [place], [place] 285485 Assigned Endocrinology Provider 03/13/22 09/07/23 Suzan Harry MD 420 [place] [address] Nephrology 06/30/23 Yasmeen Powers MD 500 [place] [address] Nephrology 10/24/23 Yasmeen Powers MD 500 [place] [address] Assigned Nephrology Provider 11/08/23 documented as of this encounter
--- OUTSIDE RECORDS SUMMARY | 2024-01-17 16:44 | XMS_ITS | Encounter Summary ---
Author Organization [facility] Address [address] [place] [address] Care Team Providers Care Theater Technician Name Role Phone Rubén Boyle MD Primary Care Provider [phone] Pamela Blanco HAND FOLDER Unavailable Pedro Segura MD Unavailable Freddy Craft MD Unavailable [phone] Abdifatah Van MD Unavailable Nicole Carranza HAND FOLDER Unavailable Andressa Ruiz-C Unavailable Ashlyn Storm RN Unavailable Rubén Gunter [facility] Unavailable Andressa Ruiz-C Unavailable Suzan Harry MD Unavailable [phone] Yasmeen Powers MD Unavailable [phone] Yasmeen Powers MD Unavailable [phone] Encounter Details Date Type Department Care Team (Late st Contact Info) Description 05/28/2019 External Order Results [facility] [address] [place] [address] Social History Tobacco Use Types [...] TANDEM MASS SPECTROMETRY Routine 05/28/2019 10:10 AM AUDIOVISUAL TECHNICIAN MAGNESIUM Routine 05/28/2019 10:10 AM AUDIOVISUAL TECHNICIAN HEPATIC FUNCTION PANEL Routine 05/28/2019 10:10 AM AUDIOVISUAL TECHNICIAN BASIC METABOLIC PANEL Routine 05/28/2019 10:10 AM AUDIOVISUAL TECHNICIAN CBC WITH PLATELETS Routine 05/28/2019 10 :10 AM AUDIOVISUAL TECHNICIAN documented in this encounter Results * Tacrolimus level (05/28/2019 10:10 AM AUDIOVISUAL TECHNICIAN) Tacrolimus(FK-5 06) (External) 5.4 See scan ng/mL LABDE SCAN Tacrolimus Last Dose (External) Not given LABDE SCAN Blood specimen (specimen) 05/28/2019 10:10 AM AUDIOVISUAL TECHNICIAN Narrative SAMANTHA PFT - 05/30/2019 8:40 AM AUDIOVISUAL TECHNICIAN Verified by Cruzito Marlow on 05/30/2019. Patient Reported LAB - BLOOD ORDERABL ES SAMANTHA PFT LABDE SCAN * (ABNORMAL) CBC with platelets (05/28/2019 10:10 AM AUDIOVISUAL TECHNICIAN) WBC Count (External) 2.7(L) 4.5 - [...] SCAN Blood specimen (specimen) 05/28/2019 10:10 AM AUDIOVISUAL TECHNICIAN Narrative BREEZE PFT - 05/29/2019 8:37 AM AUDIOVISUAL TECHNICIAN Verified by Pedrito Stallworth on 05/29/2019. Patient Reported LAB - BLOOD ORDERABL ES BREEZE PFT LABDE SCAN * Magnesium (05/28/2019 10:10 AM AUDIOVISUAL TECHNICIAN) Magnesium (External) 1.6 1.6 - 2.6 mg/dL LABDE SCAN Blood specimen (specimen) 05/28/2019 10:10 AM AUDIOVISUAL TECHNICIAN Narrative ERICKEZE PFT - 05/29/2019 8:37 AM AUDIOVISUAL TECHNICIAN Verified by Pedrito Stallworth on 05/29/2019. Patient Reported LAB - BLOOD ORDERABL ES BREEZE PFT LABDE SCAN * Hepatic panel (05/28/2019 10:10 AM AUDIOVISUAL TECHNICIAN) Albumin (External) 4.2 3.2 - 4.6 g/dL [...] SCAN AST (External) 18 2 - 40 Viktoira/L LABDE SCAN Blood specimen (specimen) 05/28/2019 10:10 AM AUDIOVISUAL TECHNICIAN Narrative BREEZE PFT - 05/29/2019 8:37 AM AUDIOVISUAL TECHNICIAN Verified by Pedrito Stallworth on 05/29/2019. Patient Reported LAB - BLOOD ORDERABL ES BREEZE PFT LABDE SCAN * (ABNORMAL) Basic metabolic panel (05/28/2019 10:10 AM AUDIOVISUAL TECHNICIAN) Sodium (External) 139 135 - 145 mmol/L [...] SCAN Blood specimen (specimen) 05/28/2019 10:10 AM AUDIOVISUAL TECHNICIAN Narrative BREEZE PFT - 05/29/2019 8:37 AM AUDIOVISUAL TECHNICIAN Verified by Pedrito Stallworth on 05/29/2019. 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 06/21/2016 06/21/2016 documented as of this encounter Care Teams Theater Technician Relationship Specialty Start Date End Date Rubén Boyle MD PCP - General Family Practice 03/08/16 Pamela Blanco HAND FOLDER [facility] [address] [place] [address] Referring Physician 07/13/16 Pedro Segura MD [facility] [address] [place], [place] [address]97 Nephrology 10/03/16 Freddy Craft MD 516 [facility] 2A [place], [place] [id number] Assigned Gastroenterology Provider 02/08/20 Abdifatah Vna MD 717 [facility] [address] [place] [address] Assigned Nephrology Provider 07/13/20 11/07/23 Nicole Carranza NP 420 [facility] 508 [place], [place] 8065[address] Assigned Heart and Vascular Provider 01/09/22 Andressa Ruiz PA-C 420 [facility] 803 [place] [address] Physician Developer Evangelist Endocrinology, Diabetes, and Metabolism 03/01/22 Ashlyn Storm RN [facility] 711 [place], [place] [address] Registered Nurse 03/03/22 09/15/22 Rubén Gunter [facility] 909 [place] [address] Assigned MTM Pharmacist 02/27/22 Andressa Ruiz PA-C 420 [facility] 803 [place], [place] [address]325 Assigned Endocrinology Provider 03/13/22 09/07/23 Suzan Harry MD 420 [place], [place] 14[address]15 Nephrology 06/30/23 Yasmeen Powers MD 500 [place] [address] Nephrology 10/24/23 Yasmeen oPwers MD 500 [place] [address] Assigned Nephrology Provider 11/08/23 documented as of this encounter
--- OUTSIDE RECORDS SUMMARY | 2024-01-17 16:44 | XMS_ITS | Encounter Summary ---
Author Organization [facility] Address [address] [place] [address] Care Team Providers Care Agricultural Extension Agent Name Role Phone Rubén Boyle MD Primary Care Provider [phone] Pamela Blanco STEAM SHOVEL OILER Unavailable [phone] Pedro Segura MD Unavailable Freddy Craft MD Unavailable Abdifatah Van MD Unavailable Nicole Carranza STEAM SHOVEL OILER Unavailable [phone] Andressa Ruiz-C Unavailable [phone] sAhlyn Storm RN Unavailable [phone] Rubén Gunter [facility] Unavailable Andressa Ruiz-C Unavailable Suzan Harry MD Unavailable [phone] Yasmeen Powers MD Unavailable [phone] Yasmeen Powers MD Unavailable [phone] Encounter Details Date Type Department Care Team (Latest Contact Info) Description 09/12/[address] [facility] [address] [place] [address] Outside, Provider History of liver [...] - BLOOD ORD ERABLES Performing Organization Address City/State/[facility] Co de Phone Number BREEZE [...] ORDERABL ES Performing Organization Address [facility] de Phone Number BREEZE PFT [...] ORDERABL ES Performing Organization Address [facility] Co de Phone Number BREEZE PFT LABDE SCAN * Magnesium (09/12/2019 11:00 AM CDT) Magnesium (External) 1.6 1.5 - 2.6 MG/DL LABDE SCAN Blood specimen (specimen) 09/12/2019 11:00 AM CDT Subhash SINGH PFT - 09/13/2019 9:16 AM CDT Verified by Pedrito Stallworth on 09/13/2019. Patient Reported LAB - BLOOD ORDERABL ES Performing Organization Address [facility]/ZIP Co de Phone Number [facility] PF LABDE SCAN * (ABNORMAL) Basic [...] ORDERABL ES Performing Organization Address [facility]/ZIP Co de Phone Number [facility] PF LABDE SCAN * (ABNORMAL) UA with Microscopic (09/12/2019 11:00 AM CDT) Color Urine (External) ORANGE YELLOW LABDE SCAN Appearance Urine (External) CLEAR CLEAR LABDE SCAN Glucose Urine (External) TRACE(H) NEGATIVE LABDE SCAN Bilirubin Urine (External) NEG NEGATIVE LABDE SCAN Ketones Urine (External) TRACE(H) NEGATIVE LABDE SCAN Specific [place] Urine (External) >=1.030 LABDE SCAN pH Urine [...] by Pedrito Stallworth on 09/13/2019. Verified by Pedrito Stallworth on 09/13/2019. Patient [...] as of this encounter Care Teams Agricultural Extension Agent Relationship Specialty Start Date End Date Rubén Boyle MD PCP - General Family Practice 03/08/16 Pamela Blanco NP [facility] [address] [place], [place] [address] Referring Physician 07/13/16 Pedro Segura MD [facility] [address] [place], [place] 208737 Nephrology 10/03/16 Freddy Craft MD 516 [facility] P[address] [place], [place] [address] Assigned Gastroenterology Provider 02/08/20 Abdifatah Van MD 717 [facility] [address] [place], [place] 815254 Assigned Nephrology Provider 07/13/20 11/07/23 Nicole Carranza, GER[place]IA 420 [facility] 508 [place], [place] 359435 Assigned Heart and Vascular Provider 01/09/22 Andressa Ruiz PA-C 420 [facility] 803 [place], [place] [address]855 Physician Ssn/Ssbn Weapons Equipment Operator Endocrinology, Diabetes, and Metabolism 03/01/22 Ashlyn Storm, RN [facility] 711 [place], [place] [address] Registered Nurse 03/03/22 09/15/22 Rubén Gunter [facility] 909 [facility] [address] [place], [place] [address]135 Assigned MTM Pharmacist 02/27/22 Andressa Ruiz PA-C 420 [facility] 803 [place], [place] 092325 Assigned Endocrinology Provider 03/13/22 09/07/23 Suzan Harry MD 420 [place], [place] 459265 Nephrology 06/30/23 Yasmeen Powers MD 500 [place] [address] Nephrology 10/24/23 Yasmeen Powers MD 500 [place] [address] Assigned Nephrology Provider 11/08/23 documented as of this encounter
--- OUTSIDE RECORDS SUMMARY | 2024-01-17 16:44 | XMS_ITS | Encounter Summary ---
Author Organization [facility] Address [address] [place] [address] Care Team Providers Care Soil Conservation Technician Name Role Phone Rubén Boyel MD Primary Care Provider [phone] Pamela Blanco GUEST EXPERIENCE SPECIALIST Unavailable [phone] Pedro Segura MD Unavailable Freddy Craft MD Unavailable Abdifatah Van MD Unavailable Nicole Carranza GUEST EXPERIENCE SPECIALIST Unavailable [phone] Andressa Ruiz PA-C Unavailable Ashlyn Storm RN Unavailable Rubén Gunter [facility] Unavailable Andressa Ruiz-C Unavailable [phone] Suzan Harry MD Unavailable [phone] Yasmeen Powers MD Unavailable [phone] Yasmeen Powers MD Unavailable [phone] Encounter Details Date Type Department Care Team (Late st Contact Info) Description 04/29/2020 [facility] [address] [place] [address] Calli Hall RN Social History [...] documented as of this encounter Care Teams Soil Conservation Technician Relationship Specialty Start Date End Date Rubén Boyle MD PCP - General Family Practice 03/08/16 Pamela Blanco GUEST EXPERIENCE SPECIALIST [facility] [address] [place], [place] 208607 Referring Physician 07/13/[address] [facility] [address] [place], [place] 440647 Nephrology 10/03/16 Freddy Craft MD 516 [facility] P[address] [place], [place] [address]215 Assigned Gastroenterology Provider 02/08/20 Abdifatah Van MD [address] [facility] [address] [place], [place] 474154 Assigned Nephrology Provider 07/13/20 11/07/23 Nicole Carranza NP 420 [facility] [address] [place], [place] 688245 Assigned Heart and Vascular Provider 01/09/22 Andressa Ruiz PA-C 420 [facility] 803 [place], [place] 592085 Physician Practice Lead Endocrinology, Diabetes, and Metabolism 03/01/22 Ashlyn Storm, RN [facility] 711 [place], [place] 746214 Registered Nurse 03/03/22 09/15/22 Rubén Gunter [facility] [address] [place] [address] Assigned MTM Pharmacist 02/27/22 Andressa Ruiz PA-C 420 [facility] 803 [place], [place] 05[address]35 Assigned Endocrinology Provider 03/13/22 09/07/23 Suzan Harry MD 420 [place] [address] Nephrology 06/30/23 Yasmeen Powers MD 500 [place] [address] Nephrology 10/24/23 Yasmeen Powers MD 500 [place] [address] Assigned Nephrology Provider 11/08/23 documented as of this encounter
--- OUTSIDE RECORDS SUMMARY | 2024-01-17 16:44 | XMS_ITS | Encounter Summary ---
Author Organization [facility] Address [address] [place] [address] Care Team Providers Care Parts Department Supervisor Name Role Phone Rubén Boyle MD Primary Care Provider Pamela Blanco COMMERCIAL CRABBER Unavailable Pedro Segura MD Unavailable Freddy Craft MD Unavailable Abdiftaah Van MD Unavailable Nicole Carranza COMMERCIAL CRABBER Unavailable [phone] Andressa Ruiz-C Unavailable Ashlyn Storm RN Unavailable Rubén Gunter [facility] Unavailable Andressa Ruiz-C Unavailable Suzan Harry MD Unavailable [phone] Yasmeen Powers MD Unavailable [phone] Yasmeen Powers MD Unavailable [phone] Encounter Details Date Type Department Care Team (Late st Contact Info) Description 12/07/2018 External Order Results [facility] [address] [place] [address] Social History Tobacco Use Types [...] - BLOOD ORDERABL ES Performing Organization Address City/[facility]/ZIP Co de Phone Number BREEZE [...] documented as of this encounter Care Teams Parts Department Supervisor Relationship Specialty Start Date End Date Rubén Boyle MD PCP - General Family Practice 03/08/16 Pamela Blanco, COMMERCIAL CRABBER [facility] [address] [place] [address] Referring Physician 07/13/16 Pedro Segura MD [facility] [address] [place] [address] Nephrology 10/03/16 Freddy Craft MD 516 [facility] 2A [place], [place] 435815 Assigned Gastroenterology Provider 02/08/20 Abdifatah Van MD 717 [facility] [address] [place], [place] 740254 Assigned Nephrology Provider 07/13/20 11/07/23 Nicole Carranza, GERMANIA 420 [facility] 508 [place], [place] 648805 Assigned Heart and Vascular Provider 01/09/22 Andressa Ruiz PA-C 420 [facility] 803 [place], [place] 1439[address] Physician Screw Cutter Endocrinology, Diabetes, and Metabolism 03/01/22 Ashlyn Storm, RN [facility] 711 [place] [address] Registered Nurse 03/03/22 09/15/22 Rubén Gunter [facility] [address] [place] [address] Assigned MTM Pharmacist 02/27/22 Andressa Ruiz PA-C 420 [facility] 803 [place] [address] Assigned Endocrinology Provider 03/13/22 09/07/23 Suzan Harry MD 420 [place] [address] Nephrology 06/30/23 aYsmeen Powers MD 500 [place] [address] Nephrology 10/24/23 Yasmeen Powers MD 500 [place] [address] Assigned Nephrology Provider 11/08/23 documented as of this encounter
--- OUTSIDE RECORDS SUMMARY | 2024-01-17 16:44 | XMS_ITS | Encounter Summary ---
Author Organization [facility] Address [address] [place] [address] Care Team Providers Care Manufacturing Technology Analyst Name Role Phone Rubén Boyle MD Primary Care Provider Pamela Blanco POWER NUT RUNNER OPERATOR Unavailable [phone] Pedro Segura MD Unavailable [phone] Freddy Craft MD Unavailable Abdifatah Van MD Unavailable Nicole Carranza POWER NUT RUNNER OPERATOR Unavailable [phone] Andressa Ruiz-C Unavailable Ashlyn Storm RN Unavailable Rubén Gunter [facility] Unavailable Andressa Ruiz-C Unavailable Suzan Harry MD Unavailable [phone] Yasmeen Powers MD Unavailable [phone] Yasmeen Powers MD Unavailable [phone] Encounter Details Date Type Department Care Team (Late st Contact Info) Description 07/03/2019 Telephone [facility] [address]09 [place] [address] Georgina Stewart, [place] Social History [...] documented as of this encounter Care Teams Manufacturing Technology Analyst Relationship Specialty Start Date End Date Rubén Boyle MD PCP - General Family Practice 03/08/16 Pamela Blanco NP [facility] [address] [place], [place] 498607 Referring Physician 07/13/16 Pedro Segura MD [facility] [address] [place], [place] 830847 Nephrology 10/03/16 Freddy Craft MD [address] [place] [address] Assigned Gastroenterology Provider 02/08/20 Abdifatah Van MD 717 [facility] [address] [place] [address] Assigned Nephrology Provider 07/13/20 11/07/23 Nicole Carranza POWER NUT RUNNER OPERATOR 420 [facility] 508 [place], [place] 9026[address] Assigned Heart and Vascular Provider 01/09/22 Andressa Ruiz PA-C 420 [facility] 803 [place], [place] 348655 Physician Air Plant Engineer Endocrinology, Diabetes, and Metabolism 03/01/22 Ashlyn Storm RN [facility] 711 [place], [place] 219614 Registered Nurse 03/03/22 09/15/22 Rubén Gunter [facility] [address] [place] [address] Assigned MTM Pharmacist 02/27/22 Andressa Ruiz PA-C 420 [facility] 803 [place], [place] 686625 Assigned Endocrinology Provider 03/13/22 09/07/23 Suzan Harry MD 420 [place], [place] 156025 Nephrology 06/30/23 Yasmeen Powers MD [address] [place] [address] Nephrology 10/24/23 Yasmeen Powers MD 500 [place] [address] Assigned Nephrology Provider 11/08/23 documented as of this encounter
--- OUTSIDE RECORDS SUMMARY | 2024-01-17 16:44 | XMS_ITS | Encounter Summary ---
Author Organization [facility] Address [address] [place] [address] Care Team Providers Care Home Health Care Social Worker Name Role Phone Rubén Boyle MD Primary Care Provider Pamela Blanco DIRECTOR OF BROADCAST Unavailable Pedro Segura MD Unavailable Freddy Craft MD Unavailable [phone] Abdifatah Van MD Unavailable Nicole Carranza DIRECTOR OF BROADCAST Unavailable [phone] Andressa Ruiz-C Unavailable [phone] Ashlyn Storm RN Unavailable [phone] Rubén Gunter [facility] Unavailable Andressa Ruiz-C Unavailable Suzan Harry MD Unavailable [phone] Yasmeen Powers MD Unavailable [phone] Yasmeen Powers MD Unavailable [phone] Encounter Details Date Type Department Care Team (Late st Contact Info) Description 08/06/2020 [facility] [address] [place] [address] Lashanda Hsieh, [facility] Social History Tobacco Use Types Packs/Day [...] documented as of this encounter Care Teams Home Health Care Social Worker Relationship Specialty Start Date End Date Rubén Boyle MD PCP - General Family Practice 03/08/16 Pamela Blanco NP [facility] [address] [place], [place] 557837 Referring Physician 07/13/16 Pedro Segura MD [facility] [address] [place], [place] 600887 Nephrology 10/03/16 Freddy Craft MD [address] [place] [address] Assigned Gastroenterology Provider 02/08/20 Abdifatah Van MD 717 [facility] [address] [place] [address] Assigned Nephrology Provider 07/13/20 11/07/23 Nicole Carranza NP 420 [facility] 508 [place], [place] 707725 Assigned Heart and Vascular Provider 01/09/22 Andressa Ruiz PA-C 420 [facility] 803 [place], [place] [address] Physician Illusionist Endocrinology, Diabetes, and Metabolism 03/01/22 Ashlyn Storm RN [facility] 711 [place], [place] 371134 Registered Nurse 03/03/22 09/15/22 Rubén Gunter [facility] 909 [place], [place] 667165 Assigned MTM Pharmacist 02/27/22 Andressa Ruiz PA-C 420 [facility] 803 [place], [place] 784565 Assigned Endocrinology Provider 03/13/22 09/07/23 Suzan Harry MD 420 [place], [place] 588345 Nephrology 06/30/23 Yasmeen Powers MD 500 [place], [place] 623795 Nephrology 10/24/23 Yasmeen Powers MD 500 [place] [address] Assigned Nephrology Provider 11/08/23 documented as of this encounter
--- OUTSIDE RECORDS SUMMARY | 2024-01-17 16:44 | XMS_ITS | Encounter Summary ---
Author Organization [facility] Address [address] [place] [address] Care Team Providers Care Churn Operator Name Role Phone Rubén Boyle MD Primary Care Provider Pamela Blanco LOOM FIXER SUPERVISOR Unavailable Pedro Segura MD Unavailable [phone] Freddy Craft MD Unavailable Abdifatah Van MD Unavailable Nicole Carranza LOOM FIXER SUPERVISOR Unavailable [phone] Andressa Ruiz-C Unavailable Ashlyn Storm RN Unavailable Rubén Gunter [facility] Unavailable Andressa Ruiz-C Unavailable Suzan Harry MD Unavailable [phone] Yasmeen Powers MD Unavailable Yasmeen Powers MD Unavailable [phone] Encounter Details Date Type Department Care Team (Late st Contact Info) Description 03/19/2019 External Order Results [facility] [address] [place] [address] Social History Tobacco Use Types [...] UA WITH MICROSCOPIC Routine 03/19/2019 12:00 PM C 13 CATAPULT OPERATOR TACROLIMUS BY TANDEM MASS SPECTROMETRY Routine 03/19/2019 9:30 AM C 13 CATAPULT OPERATOR MAGNESIUM Routine 03/19/2019 9:30 AM C 13 CATAPULT OPERATOR LIPID PROFILE Routine 03/19/2019 9:30 AM C 13 CATAPULT OPERATOR HEPATIC FUNCTION PANEL Routine 03/19/2019 9:30 AM C 13 CATAPULT OPERATOR BASIC METABOLIC PANEL Routine 03/19/2019 9:30 AM C 13 CATAPULT OPERATOR CBC WITH PLATELETS Routine 03/19/2019 9: 30 AM C 13 CATAPULT OPERATOR documented in this encounter Results * (ABNORMAL) UA with Microscopic (03/19/2019 12:00 PM C 13 CATAPULT OPERATOR) Color Urine (External) Yellow Yellow LABDE SCAN Appearance Urine (External) Clear Clear LABDE SCAN Specific [place] Urine (External) >=1.030(A) 1.010 - 1.025 LABDE [...] SCAN Urine specimen (specimen) 03/19/2019 12:00 PM C 13 CATAPULT OPERATOR Narrative BREEZE PFT - 03/20/2019 6:18 AM C 13 CATAPULT OPERATOR Verified by Cruzito Marlow on 03/20/2019. Patient Reported LAB - URINE ORDERABL ES BREEZE PFT LABDE SCAN * Tacrolimus level (03/19/2019 9:30 AM C 13 CATAPULT OPERATOR) Tacrolimus(FK-5 06) (External) 5.0 See scan ng/mL LABDE SCAN Tacrolimus Last Dose (External) 03/18/2019 8:00 PM LABDE SCAN Blood specimen (specimen) 03/19/2019 9:30 AM C 13 CATAPULT OPERATOR Narrative AMNAE PFT - 03/20/2019 3:24 PM C 13 CATAPULT OPERATOR Verified by Rhiannon Cain on 03/20/2019. Patient Reported LAB - BLOOD ORDERABL ES BREEZE PFT LABDE SCAN * (ABNORMAL) CBC with platelets (03/19/2019 9:30 AM C 13 CATAPULT OPERATOR) WBC Count (External) 2.7(L) 4.5 - 11.0 [...] SCAN Blood specimen (specimen) 03/19/2019 9:30 AM C 13 CATAPULT OPERATOR Narrative AMNAE PFT - 03/19/2019 1:12 PM C 13 CATAPULT OPERATOR Verified by Pedrito Stallworth on 03/19/2019. Patient Reported LAB - BLOOD ORDERABL ES Performing Organization Address [facility] Co de Phone Number BREEZE PFT LABDE SCAN * Magnesium (03/19/2019 9:30 AM C 13 CATAPULT OPERATOR) Magnesium (External) 1.8 1.6 - 2.6 mg/dL LABDE SCAN Blood specimen (specimen) 03/19/2019 9:30 AM C 13 CATAPULT OPERATOR Subhash BREEZE PFT - 03/19/2019 1:12 PM C 13 CATAPULT OPERATOR Verified by Pedrito Stallworth on 03/19/2019. Patient Reported LAB - BLOOD ORDERABL ES Performing Organization Address [facility] de Phone Number BREEZE PFT LABDE SCAN * (ABNORMAL) Lipid Profile (03/19/2019 9:30 AM C 13 CATAPULT OPERATOR) Cholesterol (External) 179 100 - 199 mg/dL LABDE SCAN Triglycerides (External) 195(H) <150 mg/dL LABDE SCAN HDL Cholesterol (External) 43 >40 mg/dL LABDE SCAN LDL-Cholesterol (External) 97 <=130 mg/dL LABDE SCAN Blood specimen (specimen) 03/19/2019 9:30 AM C 13 CATAPULT OPERATOR Subhash SINGH PFT - 03/19/2019 1:12 PM C 13 CATAPULT OPERATOR Verified by Pedrito Stallworth on 03/19/2019. Patient Reported LAB - BLOOD ORDERABL ES Performing Organization Address [facility] Co de Phone Number BREEZE PFT LABDE SCAN * Hepatic panel (03/19/2019 9:30 AM C 13 CATAPULT OPERATOR) Albumin (External) 4.2 3.2 - 4.6 g/dL [...] SCAN Blood specimen (specimen) 03/19/2019 9:30 AM C 13 CATAPULT OPERATOR Narrative BREEZE PFT - 03/19/2019 1:12 PM C 13 CATAPULT OPERATOR Verified by Pedrito Stallworth on 03/19/2019. Patient Reported LAB - BLOOD ORDERABL ES BREEZE PFT LABDE SCAN * (ABNORMAL) Basic metabolic panel (03/19/2019 9:30 AM C 13 CATAPULT OPERATOR) Sodium (External) 137 135 - 145 mmol/L [...] SCAN Blood specimen (specimen) 03/19/2019 9:30 AM C 13 CATAPULT OPERATOR Narrative AMNAE PFT - 03/19/2019 1:10 PM C 13 CATAPULT OPERATOR Verified by Pedrito Stallworth on 03/19/2019. 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 06/21/2016 06/21/2016 documented as of this encounter Care Teams Churn Operator Relationship Specialty Start Date End Date Rubén Boyle MD PCP - General Family Practice 03/08/16 Pamela Blanco, LOOM FIXER SUPERVISOR [facility] [address] [place] [address] Referring Physician 07/13/16 Pedro Segura MD [facility] [address] [place] [address] Nephrology 10/03/16 Freddy Craft MD [address] [facility] [place], [place] [address] Assigned Gastroenterology Provider 02/08/20 Abdifatah Van MD [address] [facility] [address] [place] [address] Assigned Nephrology Provider 07/13/20 11/07/23 Nicole Carranza NP 420 [facility] 508 [place], [place] [address] Assigned Heart and Vascular Provider 01/09/22 Andressa Ruiz PA-C 420 [facility] 803 [place], [place] [address] Physician Parking Garage Manager Endocrinology, Diabetes, and Metabolism 03/01/22 Ashlyn Storm, RN [facility] [address] [place] [address] Registered Nurse 03/03/22 09/15/22 Rubén Gunter [facility] [address] [place] [address] Assigned MTM Pharmacist 02/27/22 Andressa Ruiz PA-C 420 [facility] 803 [place] [address] Assigned Endocrinology Provider 03/13/22 09/07/23 Suzan Harry MD 420 [place] [address] Nephrology 06/30/23 Yasmeen Powers MD [address] [place] [address] Nephrology 10/24/23 Yasmeen Powers MD [address] [place] [address] Assigned Nephrology Provider 11/08/23 documented as of this encounter
--- OUTSIDE RECORDS SUMMARY | 2024-01-17 16:44 | XMS_ITS | Encounter Summary ---
Author Organization [facility] Address [address] [place] [address] Care Team Providers Care Creative Manager Name Role Phone Rubén Boyle MD Primary Care Provider Pamela Blanco ENGRAVER SIGNATURE Unavailable [phone] Pedro Segura MD Unavailable Freddy Craft MD Unavailable Abdifatah Van MD Unavailable Nicole Carranza ENGRAVER SIGNATURE Unavailable [phone] Andressa Ruiz-C Unavailable Ashlyn Storm RN Unavailable [phone] Rubén Gunter [facility] Unavailable Andressa Ruiz-C Unavailable Suzan Harry MD Unavailable [phone] Yasmeen Powers MD Unavailable Yasmeen Powers MD Unavailable [phone] Encounter Details Date Type Department Care Team (Late st Contact Info) Description 05/17/2019 External Order Results [facility] [address] [place] [address] Social History Tobacco Use Types [...] PLATELETS & DIFFERENTIAL Routine 05/17/2019 10:10 AM VP CORPORATE DEVELOPMENT LIPID PROFILE Routine 05/17/2019 10:10 AM VP CORPORATE DEVELOPMENT HEMOGLOBIN A1C Routine 05/17/2019 10:10 AM VP CORPORATE DEVELOPMENT ALT Routine 05/17/2019 10:10 AM VP CORPORATE DEVELOPMENT BASIC METABOLIC PANEL Routine 05/17/2019 10:10 AM VP CORPORATE DEVELOPMENT ALBUMIN RANDOM URINE QUANTITATIVE Routine 05/17/2019 10:05 AM VP CORPORATE DEVELOPMENT documented in this encounter Results * (ABNORMAL) Lipid Profile (05/17/2019 10:10 AM VP CORPORATE DEVELOPMENT) Cholesterol (External) 170 90 - 200 MG/DL LABDE SCAN Triglycerides (External) 206(H) 40 - 197 U/L LABDE SCAN HDL Cholesterol (External) 88 <100 mg/dl LABDE SCAN LDL-Cholesterol (External) 41 >=40 mg/dl LABDE SCAN Blood specimen (specimen) 05/17/2019 10:10 AM VP CORPORATE DEVELOPMENT Narrative SAMANTHA PFT - 05/23/2019 7:16 AM VP CORPORATE DEVELOPMENT Verified by Pedrito Stallworth on 05/23/2019. Patient Reported LAB - BLOOD ORDERABL ES BRECARISA PFT LABDE SCAN * ALT (05/17/2019 10:10 AM VP CORPORATE DEVELOPMENT) ALT (External) 13 4 - 50 U/L LABDE SCAN Blood specimen (specimen) 05/17/2019 10:10 AM VP CORPORATE DEVELOPMENT Narrative BREEZE PFT - 05/23/2019 7:16 AM VP CORPORATE DEVELOPMENT Verified by Pedrito Stallworth on 05/23/2019. Patient Reported LAB - BLOOD ORDERABL ES Performing Organization Address [facility]/ZIP Co de Phone Number [facility] PFT LABDE SCAN * (ABNORMAL) Basic metabolic panel (05/17/2019 10:10 AM VP CORPORATE DEVELOPMENT) Glucose (External) 238(H) 60 - 115 mg/dL [...] SCAN Blood specimen (specimen) 05/17/2019 10:10 AM VP CORPORATE DEVELOPMENT Narrative SAMANTHA PFT - 05/23/2019 7:16 AM VP CORPORATE DEVELOPMENT Verified by Pedrito Stallworth on 05/23/2019. Patient Reported LAB - BLOOD ORDERABL ES Performing Organization Address [facility] Co de Phone Number [facility]FT LABDE SCAN * (ABNORMAL) Hemoglobin A1c (05/17/2019 10:10 AM VP CORPORATE DEVELOPMENT) Hemoglobin A1C (External) 7.40(H) <=6.9 % LABDE SCAN Blood specimen (specimen) 05/17/2019 10:10 AM VP CORPORATE DEVELOPMENT Narrative ERICKEZE PFT - 05/23/2019 7:16 AM VP CORPORATE DEVELOPMENT Verified by Pedrito Stallworth on 05/23/2019. Patient Reported LAB - BLOOD ORDERABL ES Performing Organization Address City/[facility]/ZIP Co de Phone Number SAMANTHA PFT LABDE SCAN * (ABNORMAL) CBC with platelets differential (05/17/2019 10:10 AM VP CORPORATE DEVELOPMENT) WBC Count (External) 2.5(L) 4.5 - 11.0 [...] SCAN Blood specimen (specimen) 05/17/2019 10:10 AM VP CORPORATE DEVELOPMENT Narrative SAMANTHA PFT - 05/23/2019 7:16 AM VP CORPORATE DEVELOPMENT Verified by Pedrito Stallworth on 05/23/2019. Patient Reported LAB - BLOOD ORDERABL ES SAMANTHA PFT LABDE SCAN * Albumin Random Urine Quantitative with Creat Ratio (05/17/2019 10:05 AM VP CORPORATE DEVELOPMENT) Microalbumin Urine (External) 1 mg/dl LABDE SCAN Creatinine Urine mg/dL (External) 106 mg/dl LABDE SCAN Microalbumin Urine mg/g Cr (External) 9 0 - 30 mg/g LABDE SCAN Urine specimen (specimen) 05/17/2019 10:05 AM VP CORPORATE DEVELOPMENT Narrative SAMANTHA PFT - 05/23/2019 7:16 AM VP CORPORATE DEVELOPMENT Verified by Pedrito Stallworth on 05/23/2019. 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 [address] [place], [place] [address] Referring Physician 07/13/[address] [facility] [address] [place], [place] [address] Nephrology 10/03/16 Freddy Craft MD [address] [place] [address] [id number] Assigned Gastroenterology Provider 02/08/20 Abdifatah Van MD [address] [facility] [address] [place] [address] Assigned Nephrology Provider 07/13/20 11/07/23 Nicole Carrazna NP 420 [facility] 508 [place], [place] [address] Assigned Heart and Vascular Provider 01/09/22 Andressa Ruiz PA-C 420 [facility] 803 [place], [place] [address] Physician Automotive Glass Technician Endocrinology, Diabetes, and Metabolism 03/01/22 Ashlyn Storm RN [facility] 7[address] [place], [place] [address] Registered Nurse 03/03/22 09/15/22 Rubén Gunter [facility] 909 [place], [place] [address] Assigned MTM Pharmacist 02/27/22 Andressa Ruiz PA-C 420 [facility] 803 [place], [place] [address] Assigned Endocrinology Provider 03/13/22 09/07/23 Suzan Harry MD [address] [place], [place] [address] Nephrology 06/30/23 Yasmeen Powers MD 500 [place], [place] [address] Nephrology 10/24/23 Yasmeen Powers MD NPI: [id number] [place] [address] Assigned Nephrology Provider 11/08/23 documented as of this encounter
--- OUTSIDE RECORDS SUMMARY | 2024-01-17 16:45 | XMS_ITS | Encounter Summary ---
Author Organization [facility] Address [address] [place] [address] Care Team Providers Care Guard Driver Name Role Phone Rubén Boyle MD Primary Care Provider [phone] Pamela Blanco UNIT COORDINATOR Unavailable Pedro Segura MD Unavailable Freddy Craft MD Unavailable Abdifatah Van MD Unavailable Nicole Carranza UNIT COORDINATOR Unavailable [phone] Andressa Ruiz-C Unavailable Ashlyn Storm RN Unavailable [phone] Rubén Gunter [facility] Unavailable Andressa Ruiz-C Unavailable [phone] Suzan Harry MD Unavailable [phone] Yasmeen Powers MD Unavailable [phone] Yasmeen Powers MD Unavailable [phone] Encounter Details Date Type Department Care Team (Late st Contact Info) Description 10/24/2018 External Order Results [facility] [address] [place] [address] Social History Tobacco Use Types [...] - BLOOD ORDERABL ES Performing Organization Address City/[facility]/ZIP Co de Phone Number BREEZE [...] documented as of this encounter Care Teams Guard Driver Relationship Specialty Start Date End Date Rubén Boyle MD PCP - General Family Practice 03/08/16 Pamela Blanco, UNIT COORDINATOR [facility] [address] [place] [address] Referring Physician 07/13/[address] [facility] [address] [place] [address] Nephrology 10/03/16 Freddy Craft MD [address] [facility] [address] [place], [place] [address] Assigned Gastroenterology Provider 02/08/20 Abdifatah Van MD [address] [facility] [address] [place], [place] [address] Assigned Nephrology Provider 07/13/20 11/07/23 Nicole Carranza, [place] 420 [facility] 508 [place], [place] [address] Assigned Heart and Vascular Provider 01/09/22 Andressa Ruiz PA-C 420 [facility] 803 [place], [place] [address] Physician Clinical Staff Anesthesiologist Endocrinology, Diabetes, and Metabolism 03/01/22 Ashlyn Storm, RN [facility] 711 [place] [address] Registered Nurse 03/03/22 09/15/22 Rubén Gunter [facility] [address] [place] [address] Assigned MTM Pharmacist 02/27/22 Andressa Ruiz PA-C 420 [facility] 803 [place] [address] Assigned Endocrinology Provider 03/13/22 09/07/23 Suzan Harry MD 420 [place] [address] Nephrology 06/30/23 Yasmeen Powers MD 500 [place] [address] Nephrology 10/24/23 Yasmeen Powers MD [address] [place] [address] Assigned Nephrology Provider 11/08/23 documented as of this encounter
--- OUTSIDE RECORDS SUMMARY | 2024-01-17 16:45 | XMS_ITS | Encounter Summary ---
Author Organization [facility] Address [address] [place] [address] Care Team Providers Care Mail Carriers Supervisor Name Role Phone Rubén Boyle MD Primary Care Provider Pamela Blanco HOUSE WIRER HELPER Unavailable [phone] Pedro Segura MD Unavailable Freddy Craft MD Unavailable [phone] Abdifatah Van MD Unavailable Nicole Carranza HOUSE WIRER HELPER Unavailable [phone] Andressa Ruiz-C Unavailable Ashlyn Storm RN Unavailable [phone] Rubén Gunter [facility] Unavailable Andressa Ruiz-C Unavailable Suzan Harry MD Unavailable [phone] Yasmeen Powers MD Unavailable [phone] Yasmeen Powers MD Unavailable [phone] Encounter Details Date Type Department Care Team (Latest Contact Info) Description 03/16/2018 External Order Results [facility] [address] [place] [address] History of liver transplant (H); [...] REFLEX TO MICRO Routine 03/16/2018 9:59 AM CREDIT UNDERWRITER History of liver transplant (H) Status post kidney transplant Long-term use of immunosuppressant medication MAGNESIUM Routine 03/16/2018 9:14 AM CREDIT UNDERWRITER History of liver transplant (H) Status post kidney transplant Long-term use of immunosuppressant medication LIPID PROFILE Routine 03/16/2018 9:14 AM CREDIT UNDERWRITER HEPATIC FUNCTION PANEL Routine 03/16/2018 9:14 AM CREDIT UNDERWRITER History of liver transplant (H) Status post kidney transplant Long-term use of immunosuppressant medication BASIC METABOLIC PANEL Routine 03/16/2018 9:14 AM CREDIT UNDERWRITER History of liver transplant (H) Status post kidney transplant Long-term use of immunosuppressant medication CBC WITH PLATELETS Routine 03/16/2018 9: 14 AM CREDIT UNDERWRITER History of liver transplant (H) Status post kidney transplant Long-term use of immunosuppressant medication documented in this encounter Results * *UA reflex to Microscopic (03/16/2018 9:59 AM CREDIT UNDERWRITER) Color Urine (External) YEL Yellow LABDE SCAN Appearance Urine (External) Clear Clear LABDE SCAN Specific [place] Urine (External) 1.015 1.010 - 1.025 LABDE [...] SCAN Urine specimen (specimen) 03/16/2018 9:59 AM CREDIT UNDERWRITER Narrative SAMANTHA PFT - 03/16/2018 1:39 PM CREDIT UNDERWRITER Verified by Rhiannon Cain on 03/16/2018. Freddy Dumont MD LAB - URINE ORD ERABLES Performing Organization Address City/[facility]/ZIP Co de Phone Number AMNAE PFT LABDE SCAN * (ABNORMAL) Lipid Profile (03/16/2018 9:14 AM CREDIT UNDERWRITER) Cholesterol (External) 197 100 - 199 mg/dL LABDE SCAN Triglycerides (External) 156(H) <150 mg/dL LABDE SCAN HDL Cholesterol (External) 38(L) >40 mg/dL LABDE SCAN LDL-Cholesterol (External) 128 <=130 mg/dL LABDE SCAN Blood specimen (specimen) 03/16/2018 9:14 AM CREDIT UNDERWRITER Narrative ERICKKayli PFT - 03/16/2018 1:39 PM CREDIT UNDERWRITER Verified by Rhiannon Cain on 03/16/2018. Patient Reported LAB - BLOOD ORDERABL ES Performing Organization Address City/[facility]/ZIP Co de Phone Number AMNAE PFT LABDE SCAN * (ABNORMAL) Basic metabolic panel (03/16/2018 9:14 AM CREDIT UNDERWRITER) Sodium (External) 138 135 - 145 mmol/L [...] SCAN Blood specimen (specimen) 03/16/2018 9:14 AM CREDIT UNDERWRITER Narrative AMNAE PFT - 03/16/2018 1:39 PM CREDIT UNDERWRITER Verified by Rhiannon Cain on 03/16/2018. Freddy Dumont MD LAB - BLOOD ORD ERABLES SAMANTHA PFT LABDE SCAN * (ABNORMAL) CBC with platelets (03/16/2018 9:14 AM CREDIT UNDERWRITER) WBC Count (External) 3.5(L) 4.5 - 11.0 [...] SCAN Blood specimen (specimen) 03/16/2018 9:14 AM CREDIT UNDERWRITER Narrative SAMANTHA PFT - 03/16/2018 1:39 PM CREDIT UNDERWRITER Verified by Rhiannon Cain on 03/16/2018. Freddy Dumont MD LAB - BLOOD ORD ERABLES [facility] PFT LABDE SCAN * (ABNORMAL) Hepatic panel (03/16/2018 9:14 AM CREDIT UNDERWRITER) Albumin (External) 4.4 3.2 - 4.6 g/dL [...] SCAN Blood specimen (specimen) 03/16/2018 9:14 AM CREDIT UNDERWRITER Narrative BREEZE PFT - 03/16/2018 1:39 PM CREDIT UNDERWRITER Verified by Rhiannon Cain on 03/16/2018. Freddy Dumont MD LAB - BLOOD ORD ERABLES Performing Organization Address [facility] Co de Phone Number BREEZE PFT LABDE SCAN * Magnesium (03/16/2018 9:14 AM CREDIT UNDERWRITER) Magnesium (External) 2.2 1.6 - 2.6 mg/dL LABDE SCAN Blood specimen (specimen) 03/16/2018 9:14 AM CREDIT UNDERWRITER Narrative BREEZE PFT - 03/16/2018 1:39 PM CREDIT UNDERWRITER Verified by Rhiannon Cain on 03/16/2018. Freddy [...] documented as of this encounter Care Teams Mail Carriers Supervisor Relationship Specialty Start Date End Date Rubén Boyle MD PCP - General Family Practice 03/08/16 Pamela Blanco, HOUSE WIRER HELPER [facility] [address] [place] [address] Referring Physician 07/13/16 Pedro Segura MD [facility] [address] [place] [address] Nephrology 10/03/16 Freddy Craft MD 516 [facility] 2[address] [place] [address] Assigned Gastroenterology Provider 02/08/20 Abdifatah Van MD 717 [facility] 353 [place], [place] [address] Assigned Nephrology Provider 07/13/20 11/07/23 Nicole Carranza NP 420 [facility] 508 [place], [place] [address] Assigned Heart and Vascular Provider 01/09/22 Andressa Ruiz PA-C 420 [facility] 803 [place], [place] [address] Physician Business Improvement Manager Endocrinology, Diabetes, and Metabolism 03/01/22 Ashlyn Storm RN [facility] 711 [place] [address] Registered Nurse 03/03/22 09/15/22 Rubén Gunter [facility] 909 [place] [address] Assigned MTM Pharmacist 02/27/22 Andressa Ruiz PA-C 420 [facility] 803 [place] [address] Assigned Endocrinology Provider 03/13/22 09/07/23 Suzan Harry MD 420 [place] [address] Nephrology 06/30/23 Yasmeen Powers MD 500 [place] [address] Nephrology 10/24/23 Yasmeen Powers MD 500 [place] [address] Assigned Nephrology Provider 11/08/23 documented as of this encounter
--- OUTSIDE RECORDS SUMMARY | 2024-01-17 16:45 | XMS_ITS | Encounter Summary ---
Author Organization [place] Address [address] [place] [address] Care Team Providers Care Full Time Babysitter Name Role Phone Rubén Boyle MD Primary Care Provider Pamela Blanco MOTION AND TIME STUDY TEACHER Unavailable Pedro Segura MD Unavailable [phone] Freddy Craft MD Unavailable Abdifatah Van MD Unavailable Nicole Carranza MOTION AND TIME STUDY TEACHER Unavailable [phone] Andressa Ruiz-C Unavailable Ashlyn Storm RN Unavailable [phone] Rubén Gunter [facility] Unavailable Andressa Ruiz-C Unavailable Suzan Harry MD Unavailable [phone] Yasmeen Powers MD Unavailable [phone] Yasmeen Powers MD Unavailable [phone] Encounter Details Date Type Department Care Team (Latest Contact Info) Description 05/03/[address] [facility] [address] [place] [address] History of liver transplant (H); [...] TANDEM MASS SPECTROMETRY Routine 05/03/2018 8:43 AM RN BSN History of liver transplant (H) Status post kidney transplant Long-term use of immunosuppressant medication MAGNESIUM Routine 05/03/2018 8:43 AM RN BSN History of liver transplant (H) Status post kidney transplant Long-term use of immunosuppressant medication HEPATIC FUNCTION PANEL Routine 05/03/2018 8:43 AM RN BSN History of liver transplant (H) Status post kidney transplant Long-term use of immunosuppressant medication BASIC METABOLIC PANEL Routine 05/03/2018 8:43 AM RN BSN History of liver transplant (H) Status post kidney transplant Long-term use of immunosuppressant medication CBC WITH PLATELETS Routine 05/03/2018 8: 43 AM RN BSN History of liver transplant (H) Status post kidney transplant Long-term use of immunosuppressant medication documented in this encounter Results * Tacrolimus level (05/03/2018 8:43 AM RN BSN) Tacrolimus(FK-5 06) (External) 3.9 ng/mL LABDE SCAN Tacrolimus Last Dose (External) Not given LABDE SCAN Blood specimen (specimen) 05/03/2018 8:43 AM RN BSN Narrative SAMANTHA PFT - 05/04/2018 5:18 PM RN BSN Verified by Rhiannon Cain on 05/04/2018. Freddy Dumont MD LAB - BLOOD ORD ERALASHAE Performing Organization Address City/[facility]/ZIP Co de Phone Number BREEZE PFT LABDE SCAN * (ABNORMAL) CBC with platelets (05/03/2018 8:43 AM RN BSN) WBC Count (External) 4.0(L) 4.5 - 11.0 [...] SCAN Blood specimen (specimen) 05/03/2018 8:43 AM RN BSN Narrative BREEZE PFT - 05/04/2018 5:17 AM RN BSN Verified by Cruzito Marlow on 05/04/2018. Freddy Dumont MD LAB - BLOOD ORD ERALASHAE Performing Organization Address [facility] Co de Phone Number BREEZE PFT LABDE SCAN * Magnesium (05/03/2018 8:43 AM RN BSN) Magnesium (External) 2.1 1.6 - 2.6 mg/dL LABDE SCAN Blood specimen (specimen) 05/03/2018 8:43 AM RN BSN Narrative BREEZE PFT - 05/04/2018 5:17 AM RN BSN Verified by Cruzito Marlow on 05/04/2018. Freddy Dumont MD LAB - BLOOD ORD ERALASHAE BREEZE PFT LABDE SCAN * (ABNORMAL) Hepatic panel (05/03/2018 8:43 AM RN BSN) Albumin (External) 4.1 3.2 - 4.6 g/dL [...] SCAN Blood specimen (specimen) 05/03/2018 8:43 AM RN BSN Narrative SAMANTHA PFT - 05/04/2018 5:17 AM RN BSN Verified by Cruzito Marlow on 05/04/2018. Freddy Dumont MD LAB - BLOOD ORD ERABLES SAMANTHA PFT LABDE SCAN * (ABNORMAL) Basic metabolic panel (05/03/2018 8:43 AM RN BSN) Pathologist [facility] Sodium (External) 137 135 - 145 mmol/L [...] SCAN Blood specimen (specimen) 05/03/2018 8:43 AM RN BSN Narrative SAMANTHA PFT - 05/04/2018 5:17 AM RN BSN Verified by Cruzito Marlow on 05/04/2018. Freddy [...] documented as of this encounter Care Teams Full Time Babysitter Relationship Specialty Start Date End Date Rubén Boyle MD PCP - General Family Practice 03/08/16 Pamela Blanco NP [facility] [address] [place], [place] [id number] Referring Physician 07/13/16 Pedro Segura MD [facility] [address] [place] [address] Nephrology 10/03/16 Freddy Craft MD 516 [facility] [address] [place] [address] Assigned Gastroenterology Provider 02/08/20 Abdifatah Van MD [address] [place] [address] Assigned Nephrology Provider 07/13/20 11/07/23 Nicole Carranza NP 420 [facility] 508 [place] [address] Assigned Heart and Vascular Provider 01/09/22 Andressa Ruiz PA-C 420 [facility] 803 [place], [place] 2723[address] Physician Pipe Joints Supervisor Endocrinology, Diabetes, and Metabolism 03/01/22 Ashlyn Storm RN [facility] 7[address] [place], [place] 675444 Registered Nurse 03/03/22 09/15/22 Rubén Gunter [facility] [address] [place] [address] 698155 Assigned MTM Pharmacist 02/27/22 Andressa Ruiz PA-C [address] [place] [address] 803 [place], [place] 625745 Assigned Endocrinology Provider 03/13/22 09/07/23 Suzan Harry MD [address] [place] [address] Nephrology 06/30/23 Yasmeen Powers MD 500 [place], [place] 9[address]95 Nephrology 10/24/23 Yasmeen Powers MD [address] [place] [address] Assigned Nephrology Provider 11/08/23 documented as of this encounter
--- OUTSIDE RECORDS SUMMARY | 2024-01-17 16:45 | XMS_ITS | Encounter Summary ---
Author Organization [place] Address [address] [place] [address] Care Team Providers Care Electrical Engineering Designer Name Role Phone Rubén Boyle MD Primary Care Provider Pamela Blanco SENIOR MAINTENANCE MACHINIST Unavailable Pedro Segura MD Unavailable Freddy Craft MD Unavailable Abdifatah Van MD Unavailable Nicole Carranza SENIOR MAINTENANCE MACHINIST Unavailable [phone] Andressa Ruiz-C Unavailable Ashlyn Storm RN Unavailable Rubén Gunter [facility] Unavailable Andressa Ruiz-C Unavailable [phone] Suzan Harry MD Unavailable [phone] Yasmeen Powers MD Unavailable [phone] Yasmeen Powers MD Unavailable [phone] Encounter Details Date Type Department Care Team (Latest Contact Info) Description 08/25/2018 External Order Results [facility] [address] [place] [address] History of liver transplant (H); [...] ORD ERABLES Performing Organization Address [facility]/ZIP Co de Phone Number ERICKEZKayli PFT [...] - BLOOD ORDERABL ES Performing Organization Address [facility] Co de Phone Number AMNAE PFT LABDE [...] ORD ERABLES Performing Organization Address [facility]/ZIP Co de Phone Number BREEZE PFT [...] ORD ERABLES Performing Organization Address [facility] Co de Phone Number BREEZE PFT LABDE SCAN * Magnesium (08/25/2018 9:52 AM CDT) Magnesium (External) 1.9 1.6 - 2.6 mg/dL LABDE SCAN Blood specimen (specimen) 08/25/2018 9:52 AM CDT Narrative BREEZE PFT - 08/25/2018 5:16 PM CDT Verified by Melissa Otto on 08/25/2018. Freddy Dumont MD LAB - BLOOD ORD ERABLES Performing Organization Address City/[facility] Co de Phone Number BREEZE PFT [...] documented as of this encounter Care Teams Electrical Engineering Designer Relationship Specialty Start Date End Date Rubén Boyle MD PCP - General Family Practice 03/08/16 Pamela Blanco SENIOR MAINTENANCE MACHINIST [facility] [address] [place] [address] Referring Physician 07/13/16 Pedro Segura MD [facility] [address] [place] [address] Nephrology 10/03/16 Freddy Craft MD [facility] [place], [place] 3732[address] Assigned Gastroenterology Provider 02/08/20 Abdifatah Van MD [address] [facility] [address] [place] [address] Assigned Nephrology Provider 07/13/20 11/07/23 Nicole Carranza NP 420 [facility] 508 [place], [place] 449815 Assigned Heart and Vascular Provider 01/09/22 Andressa Ruiz PA-C 420 [facility] 803 [place], [place] 232585 Physician Tnt Line Supervisor Endocrinology, Diabetes, and Metabolism 03/01/22 Ashlyn Storm [facility] [address] [place] [address] Registered Nurse 03/03/22 09/15/22 Rubén Gunter [facility] 909 [place] [address] Assigned MTM Pharmacist 02/27/22 Andressa Ruiz PA-C 420 [facility] 803 [place] [address] Assigned Endocrinology Provider 03/13/22 09/07/23 Suzan Harry MD 420 [place] [address] Nephrology 06/30/23 Yasmeen Powers MD 500 [place] [address] Nephrology 10/24/23 Yasmeen Powers MD 500 [place] [address] Assigned Nephrology Provider 11/08/23 documented as of this encounter
--- OUTSIDE RECORDS SUMMARY | 2024-01-17 16:45 | XMS_ITS | Encounter Summary ---
Author Organization [place] Address [address] [place] [address] Care Team Providers Care Indoor Sports Centre Manager Name Role Phone Rubén Boyle MD Primary Care Provider Pamela Blanco PLATFORM INSPECTOR Unavailable Pedro Segura MD Unavailable Freddy Craft MD Unavailable Abdifatah Van MD Unavailable Nicole Carranza PLATFORM INSPECTOR Unavailable [phone] Andressa Ruiz-C Unavailable Ashlyn Storm RN Unavailable [phone] Rubén Gunter [facility] Unavailable Andressa Ruiz-C Unavailable [phone] Suzan Harry MD Unavailable [phone] Yasmeen Powers MD Unavailable [phone] Yasmeen Powers MD Unavailable [phone] Encounter Details Date Type Department Care Team (Latest Contact Info) Description 09/06/2017 External Order Results [facility] [address] [place] [address] History of liver transplant (H); [...] - BLOOD ORD ERABLES Performing Organization Address [facility]/ZIP Co de [...] documented as of this encounter Care Teams Indoor Sports Centre Manager Relationship Specialty Start Date End Date Rubén Boyle MD PCP - General Family Practice 03/08/16 Pamela Blanco NP [facility] [address] [place] [address] Referring Physician 07/13/16 Pedro Segura MD [facility] [address] [place] [address] Nephrology 10/03/16 Freddy Craft MD 516 [facility] 2A [place], [place] [address] Assigned Gastroenterology Provider 02/08/20 Abdifatah Van MD 7[address] [facility] [address] [place], [place] 2070[address] Assigned Nephrology Provider 07/13/20 11/07/23 Nicole Carranza NP 420 [facility] 508 [place], [place] [address] Assigned Heart and Vascular Provider 01/09/22 Andressa Ruiz PA-C 420 [facility] 803 [place], [place] [address] Physician Brake Rider Endocrinology, Diabetes, and Metabolism 03/01/22 Ashlyn Storm, RN [facility] 711 [place] [address] Registered Nurse 03/03/22 09/15/22 Rubén Gunter [facility] [address] [place] [address] Assigned MTM Pharmacist 02/27/22 Andressa Ruiz PA-C 420 [facility] 803 [place] [address] Assigned Endocrinology Provider 03/13/22 09/07/23 Suzan Harry MD 420 [place] [address] Nephrology 06/30/23 Yasmeen Powers MD 500 [place] [address] Nephrology 10/24/23 Yasmeen Powers MD 500 [place] [address] Assigned Nephrology Provider 11/08/23 documented as of this encounter
--- OUTSIDE RECORDS SUMMARY | 2024-01-17 16:45 | XMS_ITS | Encounter Summary ---
Author Organization [place] Address [address] [place] [address] Care Team Providers Care Photo Producer Name Role Phone Rubén Boyle MD Primary Care Provider Pamela Blanco FIRST AID NURSE Unavailable [phone] Pedro Segura MD Unavailable Freddy Craft MD Unavailable Abdifatah Van MD Unavailable Nicole Carrnaza FIRST AID NURSE Unavailable [phone] Andressa Ruiz-C Unavailable Ashlyn Storm RN Unavailable Rubén Gunter [facility] Unavailable Andressa Ruiz-C Unavailable Suzan Harry MD Unavailable [phone] Yasmeen Powers MD Unavailable [phone] Yasmeen Powers MD Unavailable [phone] Encounter Details Date Type Department Care Team (Latest Contact Info) Description 11/16/2017 External Order Results [facility] [address] [place] [address] History of liver transplant (H); [...] - BLOOD ORD ERABLES Performing Organization Address [facility] Co de Phone Number BREEZE PFT [...] documented as of this encounter Care Teams Photo Producer Relationship Specialty Start Date End Date Rubén Boyle MD PCP - General Family Practice 03/08/16 Pamela Blanco NP [address] [place] [address] Referring Physician 07/13/16 Pedro Segura MD [facility] [address] [place] [address] Nephrology 10/03/16 Freddy Craft MD 516 [facility] 2A [place], [place] 285005 Assigned Gastroenterology Provider 02/08/20 Abdifatah Van MD 717 [facility] [address] [place], [place] 9967[address] Assigned Nephrology Provider 07/13/20 11/07/23 Nicole Carranza NP 420 [facility] 508 [place], [place] 6737[address] Assigned Heart and Vascular Provider 01/09/22 Andressa Ruiz PA-C 420 [facility] 803 [place], [place] 319315 Physician It Systems Analyst Endocrinology, Diabetes, and Metabolism 03/01/22 Ashlyn Storm, RN [facility] 711 [place], [place] 406404 Registered Nurse 03/03/22 09/15/22 Rubén Gunter [facility] [address] [place] [address] [id number] Assigned MTM Pharmacist 02/27/22 Andressa Ruiz PA-C 420 [facility] 803 [place] [address] Assigned Endocrinology Provider 03/13/22 09/07/23 Suzan Harry MD [address] [place] [address] Nephrology 06/30/23 Yasmeen Powers MD 500 [place] [address] Nephrology 10/24/23 Yasmeen Powers MD 500 [place] [address] Assigned Nephrology Provider 11/08/23 documented as of this encounter
--- OUTSIDE RECORDS SUMMARY | 2024-01-17 16:45 | XMS_ITS | Encounter Summary ---
Author Organization [place] Address [address] [place] [address] Care Team Providers Care Color Control Supervisor Name Role Phone Rubén Boyle MD Primary Care Provider Pamela Blanco SOLAR PHOTOVOLTAIC SYSTEMS ENGINEER Unavailable Pedro Segura MD Unavailable [phone] Freddy Craft MD Unavailable Abdifatah Van MD Unavailable Nicole Carranza SOLAR PHOTOVOLTAIC SYSTEMS ENGINEER Unavailable [phone] Andressa Ruiz-C Unavailable [phone] Ashlyn Storm RN Unavailable Rubén Gunter [facility] Unavailable Andressa Ruiz-C Unavailable Suzan Harry MD Unavailable [phone] Yasmeen Powers MD Unavailable [phone] Yasmeen Powers MD Unavailable [phone] Encounter Details Date Type Department Care Team (Latest Contact Info) Description 12/15/2017 External Order Results [facility] Trans[facility] [address] [place] [address] History of liver transplant (H); [...] - BLOOD ORD ERABLES Performing Organization Address [facility] Co de Phone Number BREEZE [...] - BLOOD ORD ERALASHAE Performing Organization Address [facility]/ZIP Co de Phone Number BREEZE PFT LABDE [...] documented as of this encounter Care Teams Color Control Supervisor Relationship Specialty Start Date End Date Rubén Boyle MD PCP - General Family Practice 03/08/16 Pamela Blanco NP [address] [place] [address] Referring Physician 07/13/16 Pedro Segura MD [facility] [place] [address] [place] [address] Nephrology 10/03/16 Freddy Craft MD 516 [facility] 2A [place], [place] 708445 Assigned Gastroenterology Provider 02/08/20 Abdifatah Van MD 717 [facility] [address] [place], [place] 67[address] Assigned Nephrology Provider 07/13/20 11/07/23 iNcole Carranza NP 420 [facility] 508 [place], [place] 637135 Assigned Heart and Vascular Provider 01/09/22 Andressa Ruiz PA-C 420 [facility] 803 [place], [place] 4[address] Physician Alterations Manager Endocrinology, Diabetes, and Metabolism 03/01/22 Ashlyn Storm, RN [facility] 711 [place], [place] 365374 Registered Nurse 03/03/22 09/15/22 Rubén Gunter [facility] [address] [place] [address] [id number] Assigned MTM Pharmacist 02/27/22 Andressa Ruiz PA-C 420 [facility] 803 [place] [address] Assigned Endocrinology Provider 03/13/22 09/07/23 Suzan Harry MD [address] [place] [address] Nephrology 06/30/23 Yasmeen Powers MD 500 [place] [address] Nephrology 10/24/23 Yasmeen Powers MD 500 [place] [address] Assigned Nephrology Provider 11/08/23 documented as of this encounter
--- OUTSIDE RECORDS SUMMARY | 2024-01-17 16:45 | XMS_ITS | Encounter Summary ---
Author Organization [place] Address [address] [place] [address] Care Team Providers Care Forensic Economist Name Role Phone Rubén Boyle MD Primary Care Provider Pamela Blanco NURSING TECH Unavailable [phone] Pedro Segura MD Unavailable Freddy Craft MD Unavailable [phone] Abdifatah Van MD Unavailable Nicole Carranza NURSING TECH Unavailable [phone] Andressa Ruiz-C Unavailable Ashlyn Storm RN Unavailable Rubén Gunter [facility] Unavailable Andressa Ruiz-C Unavailable Suzan Harry MD Unavailable [phone] Yasmeen Powers MD Unavailable [phone] Yasmeen Powers MD Unavailable [phone] Encounter Details Date Type Department Care Team (Latest Contact Info) Description 01/25/2018 External Order Results [facility] 9[address] [place] [address] History of liver transplant (H); [...] documented as of this encounter Care Teams Forensic Economist Relationship Specialty Start Date End Date Rubén Boyle MD PCP - General Family Practice 03/08/16 Pamela Blanco NP [facility] [address] [place] [address] Referring Physician 07/13/16 Pedro Segura MD [facility] [address] [place] [address] Nephrology 10/03/16 Freddy Craft MD [address] [place] [address] Assigned Gastroenterology Provider 02/08/20 Abdifatah Van MD [address] [place] [address] Assigned Nephrology Provider 07/13/20 11/07/23 Nicole Carranza NP 420 [facility] 508 [place], [place] 6[address] Assigned Heart and Vascular Provider 01/09/22 Andressa Ruiz PA-C 420 [facility] 803 [place], [place] 529375 Physician Software Engineering Analyst Endocrinology, Diabetes, and Metabolism 03/01/22 Ashlyn Storm, RN [facility] 711 [place], [place] 318284 Registered Nurse 03/03/22 09/15/22 Rubén Gunter [facility] [address] [place] [address] [id number] Assigned MTM Pharmacist 02/27/22 Andressa Ruiz PA-C 420 [facility] 803 [place], [place] 570885 Assigned Endocrinology Provider 03/13/22 09/07/23 Suzan Harry MD 420 [place] [address] Nephrology 06/30/23 Yasmeen Powers MD 500 [place], [place] 0[address]305 Nephrology 10/24/23 Yasmeen Powers MD 500 [place] [address] Assigned Nephrology Provider 11/08/23 documented as of this encounter
--- OUTSIDE RECORDS SUMMARY | 2024-01-17 16:45 | XMS_ITS | Encounter Summary ---
Author Organization [place] Address [address] [place] [address] Care Team Providers Care [employer] Name Role Phone Rubén Boyle MD Primary Care Provider Pamela Blanco TEXTILE CONVERTER Unavailable Pedro Segura MD Unavailable Freddy Craft MD Unavailable [phone] Abdifatah Van MD Unavailable Nicole Carranza TEXTILE CONVERTER Unavailable [phone] Andressa Ruiz-C Unavailable Ashlyn tSorm RN Unavailable Rubén Gunter [facility] Unavailable Andressa Ruiz-C Unavailable Suzan Harry MD Unavailable [phone] Yasmeen Powers MD Unavailable [phone] Yasmeen Powers MD Unavailable [phone] Encounter Details Date Type Department Care Team (Latest Contact Info) Description 11/04/[address] [facility] Transplant [facility] [address] [place] [address] History of liver transplant (H); [...] - BLOOD ORD ERALASHAE Performing Organization Address [facility] Co de Phone Number BREEZE PFT LABDE SCAN * Magnesium (11/04/2017 9:16 AM CDT) Magnesium (External) 2.2 1.6 - 2.6 mg/dL LABDE SCAN Blood specimen (specimen) 11/04/2017 9:16 AM CDT Narrative BREEZE PFT - 11/07/2017 8:39 AM CDT Verified by Myrna Monreal on 11/07/2017. Freddy Dumont MD LAB - BLOOD ORD ERALASHAE Performing Organization Address City/[facility]/ZIP Co de Phone Number BREEZE PFT LABDE [...] documented as of this encounter Care Teams [employer] At [employer] Relationship Specialty Start Date End Date Rubén Boyle MD PCP - General Family Practice 03/08/16 Pamela Blanco NP [address] [place] [address] Referring Physician 07/13/16 Pedro Segura MD [facility] [place] [address] [place] [address] Nephrology 10/03/16 Freddy Craft MD 516 [facility] 2A [place], [place] [address] Assigned Gastroenterology Provider 02/08/20 Abdifatah Van MD 717 [facility] [address] [place], [place] [address] Assigned Nephrology Provider 07/13/20 11/07/23 Nicole Carranza NP 420 [facility] 508 [place], [place] 0977[address] Assigned Heart and Vascular Provider 01/09/22 Andressa Ruiz PA-C 420 [facility] 803 [place], [place] [address]44[address] Physician Supervisor Logging Endocrinology, Diabetes, and Metabolism 03/01/22 Ashlyn Storm, RN [facility] 711 [place], [place] 3[address]64 Registered Nurse 03/03/22 09/15/22 Rubén Gunter [facility] [address] [place] [address] [id number] Assigned MTM Pharmacist 02/27/22 Andressa Ruiz PA-C 420 [facility] 803 [place] [address] Assigned Endocrinology Provider 03/13/22 09/07/23 Suzan Harry MD [address] [place] [address] Nephrology 06/30/23 Yasmeen Powers MD 500 [place] [address] Nephrology 10/24/23 Yasmeen Powers MD 500 [place] [address] Assigned Nephrology Provider 11/08/23 documented as of this encounter
--- OUTSIDE RECORDS SUMMARY | 2024-01-17 16:45 | XMS_ITS | Encounter Summary ---
Author Organization [place] Address [address] [place] [address] Care Team Providers Care Warehouse Laborer Name Role Phone Rubén Boyle MD Primary Care Provider Pamela Blanco RESTAURANT TEAM MEMBER Unavailable Pedro Segura MD Unavailable Freddy Craft MD Unavailable Abdifatah Van MD Unavailable Nicole Carranza RESTAURANT TEAM MEMBER Unavailable [phone] Andressa Ruiz-C Unavailable Ashlyn Storm RN Unavailable Rubén Gunter [facility] Unavailable Andressa Ruiz-C Unavailable Suzan Harry MD Unavailable [phone] Yasmeen Powers MD Unavailable Yasmeen Powers MD Unavailable [phone] Encounter Details Date Type Department Care Team (Late st Contact Info) Description 09/20/2017 External Order Results [facility] [address] [place] [address] Social History Tobacco Use Types [...] documented as of this encounter Care Teams Warehouse Laborer Relationship Specialty Start Date End Date Rubén Boyle MD PCP - General Family Practice 03/08/16 Pamela Blanco RESTAURANT TEAM MEMBER [facility] [address] [place], [place] 201297 Referring Physician 07/13/16 Pedro Segura MD [facility] [address] [place], [place] 442727 Nephrology 10/03/16 Freddy Craft MD [facility] [place], [place] 18480[address] Assigned Gastroenterology Provider 02/08/20 Abdifatah Van MD 717 [facility] [address] [place] [address] Assigned Nephrology Provider 07/13/20 11/07/23 Nicole Carranza NP 420 [facility] 508 [place] [address] Assigned Heart and Vascular Provider 01/09/22 Andressa Ruiz PA-C 420 [facility] 803 [place] [address] Physician Menhaden Vessel Pilot Endocrinology, Diabetes, and Metabolism 03/01/22 Ashlyn Storm, RN [facility] 711 [place] [address] Registered Nurse 03/03/22 09/15/22 Rubén Gunter [facility] [address] [place] [address] Assigned MTM Pharmacist 02/27/22 Andressa Ruiz PA-C 420 [facility] 803 [place] [address] Assigned Endocrinology Provider 03/13/22 09/07/23 Suzan Harry MD [address] [place] [address] Nephrology 06/30/23 Yasmeen Powers MD 500 [place] [address] Nephrology 10/24/23 Yasmeen Powers MD 500 [place] [address] Assigned Nephrology Provider 11/08/23 documented as of this encounter
--- OUTSIDE RECORDS SUMMARY | 2024-01-17 16:45 | XMS_ITS | Encounter Summary ---
Author Organization [place] Address [address] [place] [address] Care Team Providers Care Newscast Director Name Role Phone Rubén Boyle MD Primary Care Provider Pamela Blanco BOX COVERING MACHINE OPERATOR Unavailable Pedro Segura MD Unavailable Freddy Craft MD Unavailable [phone] Abdifatah Van MD Unavailable Nicole Carranza BOX COVERING MACHINE OPERATOR Unavailable [phone] Andressa Ruiz-C Unavailable Ashlyn Storm RN Unavailable Rubén Gunter [facility] Unavailable Andressa Ruiz-C Unavailable [phone] Suzan Harry MD Unavailable [phone] Yasmeen Powers MD Unavailable [phone] Yasmeen Powers MD Unavailable [phone] Encounter Details Date Type Department Care Team (Latest Contact Info) Description 09/28/[address] [facility] 9[address] [place] [address] History of liver transplant (H); [...] BLOOD ORDERABL ES Performing Organization Address [facility] Co de Phone Number BREEZE PFT LABDE [...] specimen (specimen) 09/20/2017 9:17 AM CDT Narrative ERICKEZE PFT - 09/28/2017 4:46 PM CDT Verified [...] City/[facility]/ZIP Co de Phone Number SAMANTHA [...] documented as of this encounter Care Teams Newscast Director Relationship Specialty Start Date End Date Rubén Boyle MD PCP - General Family Practice 03/08/16 Pamela Blanco NP [facility] [place] [address] [place] [address] Referring Physician 07/13/16 Pedro Segura MD [facility] [address] [place] [address] Nephrology 10/03/16 Freddy Craft MD 516 [facility] [place], [place] [address]135 Assigned Gastroenterology Provider 02/08/20 Abdifatah Van MD 717 [facility] [address] [place], [place] [address]954 Assigned Nephrology Provider 07/13/20 11/07/23 Nicole Carranza NP 420 [facility] 508 [place], [place] 161215 Assigned Heart and Vascular Provider 01/09/22 Andressa Ruiz PA-C [facility] 803 [place] [address] Physician Gang Drill Press Operator Endocrinology, Diabetes, and Metabolism 03/01/22 Ashlyn Storm RN [facility] 711 [place], [place] 927874 Registered Nurse 03/03/22 09/15/22 Rubén Gunter [facility] [address] [place] [address] 860885 Assigned MTM Pharmacist 02/27/22 Andressa Ruiz PA-C [facility] 803 [place], [place] 424485 Assigned Endocrinology Provider 03/13/22 09/07/23 Suzan Harry MD 420 [place], [place] 683345 Nephrology 06/30/23 Yasmeen Powers MD [address] [place], [place] 296935 Nephrology 10/24/23 Yasmeen Powers MD [address] [place], [place] 431385 Assigned Nephrology Provider 11/08/23 documented as of this encounter
--- OUTSIDE RECORDS SUMMARY | 2024-01-17 16:46 | XMS_ITS | Encounter Summary ---
Author Organization [place] Address [address] [place] [address] Care Team Providers Care Hand I Cutter Name Role Phone Rubén Boyle MD Primary Care Provider Pamela Blanco TAX TECHNICIAN Unavailable Pedro Segura MD Unavailable Freddy Craft MD Unavailable Abdifatah Van MD Unavailable Nicole Carranza TAX TECHNICIAN Unavailable [phone] Andressa Ruiz-C Unavailable [phone] Ashlyn Storm RN Unavailable Rubén Gunter [facility] Unavailable Andressa Ruiz-C Unavailable Suzan Harry MD Unavailable [phone] Yasmeen Powers MD Unavailable [phone] Yasmeen Powers MD Unavailable [phone] Encounter Details Date Type Department Care Team (Latest Contact Info) Description 04/14/2017 External Order Results [facility] 909 [place] [address] Long-term use of immunosuppressant medication; [...] Diagnosis Comments PHOSPHORUS Routine 04/12/2017 8:32 AM TRANSMISSION SYSTEM OPERATOR Long-term use of immunosuppressant medication 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) MAGNESIUM Routine 04/12/2017 8:32 AM TRANSMISSION SYSTEM OPERATOR Long-term use of immunosuppressant medication 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) HEPATIC FUNCTION PANEL Routine 04/12/2017 8:32 AM TRANSMISSION SYSTEM OPERATOR Long-term use of immunosuppressant medication 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) BASIC METABOLIC PANEL Routine 04/12/2017 8:32 AM TRANSMISSION SYSTEM OPERATOR Long-term use of immunosuppressant medication 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) CBC WITH PLATELETS Routine 04/12/2017 8: 32 AM TRANSMISSION SYSTEM OPERATOR Long-term use of immunosuppressant medication 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) documented in this encounter Results * (ABNORMAL) Phosphorus (04/12/2017 8:32 AM TRANSMISSION SYSTEM OPERATOR) Phosphorus (External) 2.1(L) 2.3 - 4.7 mg/dL LABDE SCAN Blood specimen (specimen) 04/12/2017 8:32 AM TRANSMISSION SYSTEM OPERATOR Narrative AMNAKayli PFT - 04/14/2017 8:49 AM TRANSMISSION SYSTEM OPERATOR Verified by Myrna Monreal on 04/14/2017. Aime Vu MD LAB - BLOOD ORDERA BLEMarkel EIRCKCARISA PFT LABDE SCAN * Magnesium (04/12/2017 8:32 AM TRANSMISSION SYSTEM OPERATOR) Magnesium (External) 1.9 1.6 - 2.6 mg/dL LABDE SCAN Blood specimen (specimen) 04/12/2017 8:32 AM TRANSMISSION SYSTEM OPERATOR Narrative BREEZE PFT - 04/14/2017 8:49 AM TRANSMISSION SYSTEM OPERATOR Verified by Myrna Monreal on 04/14/2017. Aime Vu MD LAB - BLOOD ORDERA BLES Performing Organization Address [facility] Co de Phone Number [facility] * Hepatic panel (04/12/2017 8:32 AM TRANSMISSION SYSTEM OPERATOR) Albumin (External) 4.0 3.2 - 4.6 g/dL [...] SCAN Blood specimen (specimen) 04/12/2017 8:32 AM TRANSMISSION SYSTEM OPERATOR Narrative AMNAE PFT - 04/14/2017 8:48 AM TRANSMISSION SYSTEM OPERATOR Verified by Myrna Monreal on 04/14/2017. Aime Vu MD LAB - BLOOD ORDERA BLEMarkel Performing Organization Address [facility] Co de Phone Number [facility] LABDE SC[facility] * (ABNORMAL) CBC with platelets (04/12/2017 8:32 AM TRANSMISSION SYSTEM OPERATOR) WBC Count (External) 2.7(L) 4.5 - [...] SCAN Blood specimen (specimen) 04/12/2017 8:32 AM TRANSMISSION SYSTEM OPERATOR Narrative BREEZE PFT - 04/14/2017 8:48 AM TRANSMISSION SYSTEM OPERATOR Verified by Myrna Monreal on 04/14/2017. Aime Vu MD LAB - BLOOD ORDERA BLES [facility] PFT LABDE SCAN * (ABNORMAL) Basic metabolic panel (04/12/2017 8:32 AM TRANSMISSION SYSTEM OPERATOR) Sodium (External) 141 135 - 145 mmol/L [...] SCAN Blood specimen (specimen) 04/12/2017 8:32 AM TRANSMISSION SYSTEM OPERATOR Narrative BREEZE PFT - 04/14/2017 8:48 AM TRANSMISSION SYSTEM OPERATOR Verified by Myrna Monreal on 04/14/2017. Aime [...] documented as of this encounter Care Teams Hand I Cutter Relationship Specialty Start Date End Date Rubén Boyle MD PCP - General Family Practice 03/08/[address] [facility] [address] [place], [place] 664237 Referring Physician 07/13/[address] [facility] [address] [place], [place] 467827 Nephrology 10/03/16 Freddy Craft MD 516 [facility] [address] [place] [address] Assigned Gastroenterology Provider 02/08/20 Abdifatah Van MD 717 [facility] [address] [place] [address] Assigned Nephrology Provider 07/13/20 11/07/23 Nicole Carranza NP 420 [facility] M[facility] 508 [place], [place] [phone] Assigned Heart and Vascular Provider 01/09/22 Andressa Ruiz PA-C 420 [facility] 803 [place] [address] Physician Fraud Representative Endocrinology, Diabetes, and Metabolism 03/01/22 Ashlyn Storm, RN [facility] 711 [place] [address] Registered Nurse 03/03/22 09/15/22 Rubén Gunter [facility] [address] [place] [address] Assigned MTM Pharmacist 02/27/22 Andressa Ruiz PA-C 420 [facility] 803 [place] [address] Assigned Endocrinology Provider 03/13/22 09/07/23 Suzan Harry MD [address] [place] [address] Nephrology 06/30/23 Yasmeen Powers MD 500 [place] [address] Nephrology 10/24/23 Yasmeen Powers MD 500 [place] [address] Assigned Nephrology Provider 11/08/23 documented as of this encounter
--- OUTSIDE RECORDS SUMMARY | 2024-01-17 16:46 | XMS_ITS | Encounter Summary ---
Author Organization [place] Address [address] [place] [address] Care Team Providers Care Neurology Technologist Name Role Phone Rubén Boyle MD Primary Care Provider Pamela Blanco ACCOUNT REVIEW SPECIALIST Unavailable [phone] Pedro Segura MD Unavailable Freddy Craft MD Unavailable Abdifatah Van MD Unavailable Nicole Carranza ACCOUNT REVIEW SPECIALIST Unavailable [phone] Andressa Ruiz-C Unavailable Ashlyn Storm RN Unavailable Rubén Gunter [facility] Unavailable Andressa Ruiz-C Unavailable Suzan Harry MD Unavailable [phone] Yasmeen Powers MD Unavailable [phone] Yasmeen Powers MD Unavailable [phone] Encounter Details Date Type Department Care Team (Latest Contact Info) Description 04/28/2017 External Order Results [facility] 909 [place] [address] Long-term use of immunosuppressant medication; [...] TANDEM MASS SPECTROMETRY Routine 04/26/2017 8:55 AM YARD TRUCK DRIVER Long-term use of immunosuppressant medication 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) documented in this encounter Results * Tacrolimus level (04/26/2017 8:55 AM YARD TRUCK DRIVER) Tacrolimus(FK-5 06) (External) 9.2 ng/mL LABDE SCAN Tacrolimus Last Dose (External) 04/25/2017 at 2000 LABDE SCAN Blood specimen (specimen) 04/26/2017 8:55 AM YARD TRUCK DRIVER Narrative SAMANTHA PFT - 04/28/2017 3:36 PM YARD TRUCK DRIVER Verified by Rhiannon Cain on 04/28/2017. Aime [...] documented as of this encounter Care Teams Neurology Technologist Relationship Specialty Start Date End Date Rubén Boyle MD PCP - General Family Practice 03/08/16 Pamela Blanco NP [facility] [address] [place] [address] Referring Physician 07/13/16 Pedro Segura MD [facility] [address] [place] [address] Nephrology 10/03/16 Freddy Craft MD 516 [facility] [place], [place] 483365 Assigned Gastroenterology Provider 02/08/20 Abdifatah Van MD 717 [facility] [address] [place], [place] 936214 Assigned Nephrology Provider 07/13/20 11/07/23 Nicole Carranza NP 420 [facility] [address] [place], [place] 147005 Assigned Heart and Vascular Provider 01/09/22 Andressa Ruiz PA-C 420 [facility] [address] [place], [place] 442865 Physician Public Health Informatician Endocrinology, Diabetes, and Metabolism 03/01/22 Ashlyn Storm, RN [facility] 711 [place], [place] 773214 Registered Nurse 03/03/22 09/15/22 Rubén Gunter [facility] 909 [facility] [place], [place] 178845 Assigned MTM Pharmacist 02/27/22 Andressa Ruiz PA-C 420 [facility] 803 [place] [address] Assigned Endocrinology Provider 03/13/22 09/07/23 Suzan Harry MD 420 [place] [address] Nephrology 06/30/23 Yasmeen Powers MD 500 [place] [address] Nephrology 10/24/23 Yasmeen Powers MD 500 [place] [address] Assigned Nephrology Provider 11/08/23 documented as of this encounter
--- OUTSIDE RECORDS SUMMARY | 2024-01-17 16:46 | XMS_ITS | Encounter Summary ---
Author Organization [facility] Address [address] [place] [address] Care Team Providers Care Forms Designer Name Role Phone Rubén Boyle MD Primary Care Provider Pamela Blanco PODIATRIC AIDE Unavailable Pedro Segura MD Unavailable Freddy Craft MD Unavailable Abdifatah Van MD Unavailable Nicole Carranza PODIATRIC AIDE Unavailable [phone] Andressa Ruiz-C Unavailable Ashlyn Storm RN Unavailable Rubén Gunter [facility] Unavailable Andressa Ruiz-C Unavailable Suzan Harry MD Unavailable [phone] Yasmeen Powers MD Unavailable [phone] Yasmeen Powers MD Unavailable [phone] Encounter Details Date Type Department Care Team (Latest Contact Info) Description 04/21/2017 External Order Results [facility] 909 [place] [address] Long-term use of immunosuppressant medication; [...] Diagnosis Comments PHOSPHORUS Routine 04/19/2017 9:45 AM SLOT EDITOR Long-term use of immunosuppressant medication 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) MAGNESIUM Routine 04/19/2017 9:45 AM SLOT EDITOR Long-term use of immunosuppressant medication 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) HEPATIC FUNCTION PANEL Routine 04/19/2017 9:45 AM SLOT EDITOR Long-term use of immunosuppressant medication 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) BASIC METABOLIC PANEL Routine 04/19/2017 9:45 AM SLOT EDITOR Long-term use of immunosuppressant medication 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) CBC WITH PLATELETS Routine 04/19/2017 9: 45 AM SLOT EDITOR Long-term use of immunosuppressant medication 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) documented in this encounter Results * Phosphorus (04/19/2017 9:45 AM SLOT EDITOR) Phosphorus (External) 2.7 2.3 - 4.7 mg/dL LABDE SCAN Blood specimen (specimen) 04/19/2017 9:45 AM SLOT EDITOR Narrative SAMANTHA PFT - 04/21/2017 2:28 PM SLOT EDITOR Verified by Myrna Monreal on 04/21/2017. Aime Vu MD LAB - BLOOD ORDERA BLES SAMANTHA PFT LABDE SCAN * (ABNORMAL) Magnesium (04/19/2017 9:45 AM SLOT EDITOR) Magnesium (External) 1.5(L) 1.6 - 2.6 mg/dL LABDE SCAN Blood specimen (specimen) 04/19/2017 9:[address] [facility] ERICKE PFT - 04/21/2017 2:28 PM SLOT EDITOR Verified by Myrna Monreal on 04/21/2017. Aime Vu MD LAB - BLOOD ORDERA BLES Performing Organization Address [facility] de Phone Number [facility] PFT LABDE SCAN * Hepatic panel (04/19/2017 9:45 AM SLOT EDITOR) Albumin (External) 3.9 3.2 - 4.6 g/dL [...] SCAN Blood specimen (specimen) 04/19/2017 9:45 AM SLOT EDITOR [facility] PFT - 04/21/2017 2:28 PM SLOT EDITOR Verified by Myrna Monreal on 04/21/2017. Aime Vu MD LAB - BLOOD ORDERA BLEMarkel Performing Organization Address [facility] Co de Phone Number [facility] LABDE SC[facility] * (ABNORMAL) CBC with platelets (04/19/2017 9:45 AM SLOT EDITOR) WBC Count (External) 2.7(L) 4.5 - 11.0 [...] SCAN Blood specimen (specimen) 04/19/2017 9:45 AM SLOT EDITOR Narrative AMNAE PFT - 04/21/2017 2:28 PM SLOT EDITOR Verified by Myrna Monreal on 04/21/2017. Aime Vu MD LAB - BLOOD ORDERA BLES SAMANTHA PFT LABDE SCAN * (ABNORMAL) Basic metabolic panel (04/19/2017 9:45 AM SLOT EDITOR) Sodium (External) 136 135 - 145 mmol/L [...] SCAN Blood specimen (specimen) 04/19/2017 9:45 AM SLOT EDITOR Narrative BREEZE PFT - 04/21/2017 2:28 PM SLOT EDITOR Verified by Myrna Monreal on 04/21/2017. Aime [...] documented as of this encounter Care Teams Forms Designer Relationship Specialty Start Date End Date Rubén Boyle MD PCP - General Family Practice 03/08/16 Pamela Blanco PODIATRIC AIDE [facility] [address] [place], [place] 241437 Referring Physician 07/13/16 Pedro Segura MD [facility] [address] [place], [place] 043577 Nephrology 10/03/16 Freddy Craft MD 516 [facility] 2[facility] [place] [address] Assigned Gastroenterology Provider 02/08/20 Abdifatah Van MD 717 [facility] [address] [place] [address] Assigned Nephrology Provider 07/13/20 11/07/23 Nicole Carranza NP 420 [facility] [address] [place] [address] Assigned Heart and Vascular Provider 01/09/22 Andressa Ruiz PA-C 420 [facility] 803 [place] [address] Physician Buffing Wheel Former Automatic Endocrinology, Diabetes, and Metabolism 03/01/22 Ashlyn Storm, RN [facility] 711 [place] [address] Registered Nurse 03/03/22 09/15/22 Rubén Gunter [facility] [address] [place] [address] Assigned MTM Pharmacist 02/27/22 Andressa Ruiz PA-C 420 [facility] 803 [place] [address] Assigned Endocrinology Provider 03/13/22 09/07/23 Suzan Harry MD [address] [place] [address] Nephrology 06/30/23 Yasmeen Powers MD 500 [place] [address] Nephrology 10/24/23 Yasmeen Powers MD 500 [place] [address] Assigned Nephrology Provider 11/08/23 documented as of this encounter
--- OUTSIDE RECORDS SUMMARY | 2024-01-17 16:46 | XMS_ITS | Encounter Summary ---
Author Organization [place] Address [address] [place] [address] Care Team Providers Care Defensive Fire Control Systems Operator Name Role Phone Rubén Boyle MD Primary Care Provider Pamela Blanco SCREW MACHINE TENDER Unavailable Pedro Segura MD Unavailable Freddy Craft MD Unavailable Abdifatah Van MD Unavailable Nicole Carranza SCREW MACHINE TENDER Unavailable [phone] Andressa Ruiz-C Unavailable Ashlyn Storm RN Unavailable Rubén Gunter [facility] Unavailable Andressa Ruiz-C Unavailable Suzan Harry MD Unavailable [phone] Yasmeen Powers MD Unavailable Yasmeen Powers MD Unavailable [phone] Encounter Details Date Type Department Care Team (Late st Contact Info) Description 04/16/2017 External Order Results [facility] Transplant [facility] 9[address] [place] [address] Social History Tobacco Use Types [...] TANDEM MASS SPECTROMETRY Routine 04/12/2017 8:32 AM TIRE BLADDER MAKER documented in this encounter Results * Tacrolimus level (04/12/2017 8:32 AM TIRE BLADDER MAKER) Tacrolimus(FK-5 06) (External) 4.9 LABDE SCAN Tacrolimus Last Dose (External) 04/11/2017 At 08:00pm LABDE SCAN Blood specimen (specimen) 04/12/2017 8:32 AM TIRE BLADDER MAKER Narrative SAMANTHA PFT - 04/16/2017 11:00 AM TIRE BLADDER MAKER Verified by Yamil Santo on 04/16/2017. 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, 07/10/16 rectal swab 06/21/2016 06/21/2016 documented as of this encounter Care Teams Defensive Fire Control Systems Operator Relationship Specialty Start Date End Date Rubén Boyle MD PCP - General Family Practice 03/08/16 Pamela Blanco NP [facility] [address] [place] [address] Referring Physician 07/13/16 Pedro Segura MD [facility] [address] [place] [address] Nephrology 10/03/16 Freddy Craft MD 516 [facility] 2[facility] [place] [address] Assigned Gastroenterology Provider 02/08/20 Abdifatah Van MD 717 [facility] [address] [place] [address] Assigned Nephrology Provider 07/13/20 11/07/23 Nicole Carranza NP 420 [facility] 508 [place], [place] 6[address]465 Assigned Heart and Vascular Provider 01/09/22 Andressa Ruiz PA-C 420 [facility] 803 [place], [place] 5[address] Physician Conference Services Coordinator Endocrinology, Diabetes, and Metabolism 03/01/22 Ashlyn Storm RN [facility] 711 [place] [address] Registered Nurse 03/03/22 09/15/22 Rubén Gunter [facility] 909 [facility] [place] [address] Assigned MTM Pharmacist 02/27/22 Andressa Ruiz PA-C 420 [facility] 803 [place] [address] Assigned Endocrinology Provider 03/13/22 09/07/23 Suzan Harry MD [address] [place] [address] Nephrology 06/30/23 Yasmeen Powers MD 500 [place] [address] Nephrology 10/24/23 Yasmeen Powers MD 500 [place] [address] Assigned Nephrology Provider 11/08/23 documented as of this encounter
--- OUTSIDE RECORDS SUMMARY | 2024-01-17 16:46 | XMS_ITS | Encounter Summary ---
Author Organization [facility] Address [address] [place] [address] Care Team Providers Care Semiconductor Processing Technician Name Role Phone Rubén Boyle MD Primary Care Provider Pamela Blanco BED LASTER Unavailable [phone] Pedro Segura MD Unavailable Freddy Craft MD Unavailable [phone] Abdifatah Van MD Unavailable Nicole Carranza BED LASTER Unavailable [phone] Andressa Ruiz-C Unavailable [phone] Ashlyn Storm RN Unavailable [phone] Rubén Gunter [facility] Unavailable Andressa Ruiz-C Unavailable [phone] Suzan Harry MD Unavailable [phone] Yasmeen Powers MD Unavailable [phone] Yasmeen Powers MD Unavailable [phone] Encounter Details Date Type Department Care Team (Latest Contact Info) Description 04/22/2017 External Order Results [facility] [address] [place] [address] Long-term use of immunosuppressant medication; [...] TANDEM MASS SPECTROMETRY Routine 04/19/2017 9:45 AM PAINT PROCESS ENGINEER Long-term use of immunosuppressant medication 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) documented in this encounter Results * (ABNORMAL) Tacrolimus level (04/19/2017 9:45 AM PAINT PROCESS ENGINEER) Tacrolimus(FK-5 06) (External) 4.7(L) 5 - 8 ng/mL LABDE SCAN Blood specimen (specimen) 04/19/2017 9:45 AM PAINT PROCESS ENGINEER Narrative SAMANTHA PFT - 04/22/2017 1:14 PM PAINT PROCESS ENGINEER Verified by Rhiannon Cain on 04/22/2017. Aime [...] documented as of this encounter Care Teams Semiconductor Processing Technician Relationship Specialty Start Date End Date Rubén Boyle MD PCP - General Family Practice 03/08/16 Pamela Blanco NP [facility] [address] [place] [address] Referring Physician 07/13/16 Pedro Segura MD [facility] [address] [place] [address] Nephrology 10/03/16 Freddy Craft MD 516 [place] [facility] 2A [place], [place] [address]295 Assigned Gastroenterology Provider 02/08/20 Abdifatah Van MD 717 [facility] [address] [place] [address] Assigned Nephrology Provider 07/13/20 11/07/23 Nicole Carranza NP 420 [facility] 508 [place], [place] [address]95 Assigned Heart and Vascular Provider 01/09/22 Andressa Ruiz PA-C 420 [facility] 803 [place], [place] [address] Physician Slackman Endocrinology, Diabetes, and Metabolism 03/01/22 Ashlyn Storm, RN [facility] 711 [place] [address] Registered Nurse 03/03/22 09/15/22 Rubén Gunter [facility] 909 [place], [place] [address]0035 Assigned MTM Pharmacist 02/27/22 Andressa Ruiz PA-C 420 [facility] 803 [place] [address] Assigned Endocrinology Provider 03/13/22 09/07/23 Suzan Harry MD 420 [place] [address] Nephrology 06/30/23 Yasmeen Powers MD 500 [place] [address] Nephrology 10/24/23 Yasmeen Powers MD 500 [place] [address] Assigned Nephrology Provider 11/08/23 documented as of this encounter
--- OUTSIDE RECORDS SUMMARY | 2024-01-17 16:46 | XMS_ITS | Encounter Summary ---
Author Organization [facility] Address [address] [place] [address] Care Team Providers Care Bottom Brusher Name Role Phone Rubén Boyle MD Primary Care Provider [phone] Pamela Blanco SLAB POLISHER Unavailable Pedro Segura MD Unavailable Freddy Craft MD Unavailable Abdifatah Van MD Unavailable Nicole Carranza SLAB POLISHER Unavailable [phone] Andressa Ruiz-C Unavailable [phone] Ashlyn Storm RN Unavailable Rubén Gunter [facility] Unavailable Andressa Ruiz-C Unavailable Suzan Harry MD Unavailable [phone] Yasmeen Powers MD Unavailable [phone] Yasmeen Powers MD Unavailable [phone] Encounter Details Date Type Department Care Team (Latest Contact Info) Description 08/24/2017 External Order Results [facility] [address] [place] [address] History of liver transplant (H); [...] - BLOOD ORD ERABLES Performing Organization Address [facility]/ZIP Co de Phone Number BREEZE PFT [...] - BLOOD ORD ERABLES Performing Organization Address [place]/[facility]/ZIP Co de Phone Number AMNAE PFT LABDE [...] as of this encounter Care Teams Bottom Brusher Relationship Specialty Start Date End Date Rubén Boyle MD PCP - General Family Practice 03/08/16 Pamela Blanco NP [address] [address] Referring Physician 07/13/16 Pedro Segura MD [facility] [address] [place], [place] [address]377 Nephrology 10/03/16 Freddy Craft MD 516 [facility] 2A [place], [place] 6[address] Assigned Gastroenterology Provider 02/08/20 Abdifatah Van MD 717 [facility] [address] [place], [place] [address] Assigned Nephrology Provider 07/13/20 11/07/23 Nicole Carranza NP 420 [facility] 508 [place], [place] [address]145 Assigned Heart and Vascular Provider 01/09/22 Andressa Ruiz PA-C 420 [facility] 803 [place], [place] [address] Physician Ambulatory Service Representative Endocrinology, Diabetes, and Metabolism 03/01/22 Ashlyn Storm RN [facility] 711 [place], [place] [address]114 Registered Nurse 03/03/22 09/15/22 Rubén Gunter [facility] [address] [place] [address] Assigned MTM Pharmacist 02/27/22 Andressa Ruiz PA-C 420 [facility] 803 [place], [place] [address] Assigned Endocrinology Provider 03/13/22 09/07/23 Suzan Harry MD [address] [place] [address] Nephrology 06/30/23 Yasmeen Powers MD 500 [place], [place] 9[address] Nephrology 10/24/23 Yasmeen Powers MD [address] [place], [place] [address]345 Assigned Nephrology Provider 11/08/23 documented as of this encounter
--- OUTSIDE RECORDS SUMMARY | 2024-01-17 16:46 | XMS_ITS | Encounter Summary ---
Author Organization [facility] Address [address] [place] [address] Care Team Providers Care Basin Finish Operator Tig Welder Name Role Phone Rubén Boyle MD Primary Care Provider Pamela Blanco PENCILS WASHER Unavailable Pedro Segura MD Unavailable Freddy Craft MD Unavailable [phone] Abdifatah Van MD Unavailable Nicole Carranza PENCILS WASHER Unavailable [phone] Andressa Ruiz-C Unavailable [phone] Ashlyn Storm RN Unavailable Rubén Gunter [facility] Unavailable Andressa Ruiz-C Unavailable Suzan Harry MD Unavailable [phone] Yasmeen Powers MD Unavailable [phone] Yasmeen Powers MD Unavailable [phone] Encounter Details Date Type Department Care Team (Latest Contact Info) Description 07/08/2017 External Order Results [facility] [address] [place] [address] 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); 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 transplant; supervisor intermediates use of drug Social History Tobacco Use [...] by transplant (H) 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 transplant supervisor intermediates use of drug MAGNESIUM Routine 07/08/2017 7:56 AM CDT 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) 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 transplant senior living use of drug HEPATIC FUNCTION PANEL Routine 07/08/2017 7:56 AM CDT 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) 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 transplant supervisor intermediates use of drug BASIC METABOLIC PANEL Routine 07/08/2017 7:56 AM CDT 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) 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 transplant supervisor intermediates use of drug CBC WITH PLATELETS Routine 07/08/2017 7: 56 AM CDT 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) 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 transplant supervisor intermediates use of drug documented in this encounter [...] - BLOOD ORD ERABLES Performing Organization Address [facility] Co de Phone Number [facility] LABDE SCAN * Phosphorus (07/08/2017 7:56 [...] - BLOOD ORD ERABLES Performing Organization Address [facility]/ZIP Co de Phone Number BREEZE PFT [...] replaced by transplant 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 transplant supervisor intermediates use of drug Encounter for long-term (current) use of other medications documented in this encounter Additional Health Concerns Infection Onset Date Last Indicated Resolved Time 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/16 urine, 07/10/16 rectal swab 06/21/2016 06/21/2016 documented as of this encounter Care Teams Basin Finish Operator Tig Welder Relationship Specialty Start Date End Date Rubén Boyle MD PCP - General Family Practice 03/08/16 Pamela Blanco NP [facility] [address] [place] [address] Referring Physician 07/13/16 Pedro Segura MD [facility] [address] [place] [address] Nephrology 10/03/16 Freddy Craft MD 516 [facility] 2A [place] [address] Assigned Gastroenterology Provider 02/08/20 Abdifatah Van MD 717 [facility] [address] [place] [address] Assigned Nephrology Provider 07/13/20 11/07/23 Nicole Carranza, GERMANIA 420 [facility] 508 [place] [address] Assigned Heart and Vascular Provider 01/09/22 Andressa Ruiz PA-C 420 [facility] 803 [place] [address] Physician Toe Pounder Endocrinology, Diabetes, and Metabolism 03/01/22 Ashlyn Storm, RN [facility] 711 [place] [address] Registered Nurse 03/03/22 09/15/22 Rubén Gunter [facility] [address] [place] [address] Assigned MTM Pharmacist 02/27/22 Andressa Ruiz PA-C 420 [facility] 803 [place] [address] Assigned Endocrinology Provider 03/13/22 09/07/23 Suzan Harry MD 420 [place] [address] Nephrology 06/30/23 Yasmeen Powers MD 500 [place] [address] Nephrology 10/24/23 Yasmeen Powers MD 500 [place], [place] [address] Assigned Nephrology Provider 11/08/23 documented as of this encounter
--- OUTSIDE RECORDS SUMMARY | 2024-01-17 16:46 | XMS_ITS | Encounter Summary ---
Author Organization [facility] Address [address] [place] [address] Care Team Providers Care Functional Support Analyst Name Role Phone Rubén Boyle MD Primary Care Provider [phone] Pamela Blanco CARDBOARD INSERTER Unavailable Pedro Segura MD Unavailable [phone] Freddy Craft MD Unavailable [phone] Abdifatah Van MD Unavailable Nicole Carranza CARDBOARD INSERTER Unavailable [phone] Andressa Ruiz-C Unavailable Ashlyn Storm RN Unavailable [phone] Rubén Gunter [facility] Unavailable Andressa Ruiz-C Unavailable Suzan Harry MD Unavailable [phone] Yasmeen Powers MD Unavailable Yasmeen Powers MD Unavailable [phone] Encounter Details Date Type Department Care Team (Latest Contact Info) Description 06/02/2017 External Order Results [facility] [address] [place] [address] Long-term use of immunosuppressant medication; 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); 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 transplant; long term care phlebotomist use of drug Social History Tobacco Use [...] TANDEM MASS SPECTROMETRY Routine 05/30/2017 8:57 AM MORTGAGE LOAN ASSISTANT Long-term use of immunosuppressant medication 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) PHOSPHORUS Routine 05/30/2017 8:57 AM MORTGAGE LOAN ASSISTANT 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) 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 transplant long term care phlebotomist use of drug MAGNESIUM Routine 05/30/2017 8:57 AM MORTGAGE LOAN ASSISTANT Liver replaced by transplant (H) 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 transplant long term care phlebotomist use of drug HEPATIC FUNCTION PANEL Routine 05/30/2017 8:57 AM MORTGAGE LOAN ASSISTANT Liver replaced by transplant (H) 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 transplant nursing home use of drug BASIC METABOLIC PANEL Routine 05/30/2017 8:57 AM MORTGAGE LOAN ASSISTANT Liver replaced by transplant (H) 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 transplant nursing home use of drug CBC WITH PLATELETS Routine 05/30/2017 8: 57 AM MORTGAGE LOAN ASSISTANT Liver replaced by transplant (H) 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 transplant long term care phlebotomist use of drug documented in this encounter Results * Phosphorus (05/30/2017 8:57 AM MORTGAGE LOAN ASSISTANT) Phosphorus (External) 4.4 2.3 - 4.7 mg/dL LABDE SCAN Blood specimen (specimen) 05/30/2017 8:57 AM MORTGAGE LOAN ASSISTANT Narrative SAMANTHA PFT - 06/02/2017 2:39 PM MORTGAGE LOAN ASSISTANT Verified by Myrna Monreal on 06/02/2017. Freddy Dumont MD LAB - BLOOD ORD ERABLES BREEZE PFT LABDE SCAN * Magnesium (05/30/2017 8:57 AM MORTGAGE LOAN ASSISTANT) Magnesium (External) 1.9 1.6 - 2.6 mg/dL LABDE SCAN Blood specimen (specimen) 05/30/2017 8:57 AM MORTGAGE LOAN ASSISTANT Narrative BREEZE PFT - 06/02/2017 2:39 PM MORTGAGE LOAN ASSISTANT Verified by Myrna Monreal on 06/02/2017. Freddy Dumont MD LAB - BLOOD ORD ERABLES Performing Organization Address [place]/[facility]/ZIP Co de Phone Number BREEZE PFT LABDE SCAN * Hepatic panel (Albumin, ALT, AST, Bili, Alk Phos, TP) (05/30/2017 8:57 AM MORTGAGE LOAN ASSISTANT) Albumin (External) 3.7 3.2 - 4.6 g/dL [...] SCAN Blood specimen (specimen) 05/30/2017 8:57 AM MORTGAGE LOAN ASSISTANT Narrative BREEZE PFT - 06/02/2017 2:39 PM MORTGAGE LOAN ASSISTANT Verified by Myrna Monreal on 06/02/2017. Freddy Dumont MD LAB - BLOOD ORD ERABLES BREEZE PFT LABDE SCAN * (ABNORMAL) CBC with platelets (05/30/2017 8:57 AM MORTGAGE LOAN ASSISTANT) WBC Count (External) 2.1(L) 4.5 - 11.0 [...] SCAN Blood specimen (specimen) 05/30/2017 8:57 AM MORTGAGE LOAN ASSISTANT Narrative SAMANTHA KEMP - 06/02/2017 2:39 PM MORTGAGE LOAN ASSISTANT Verified by Myrna Monreal on 06/02/2017. Freddy Dumont MD LAB - BLOOD ORD ERABLES SAMANTHA PFT LABDE SCAN * (ABNORMAL) Basic metabolic panel (05/30/2017 8:57 AM MORTGAGE LOAN ASSISTANT) Sodium (External) 140 135 - 145 mmol/L [...] SCAN Blood specimen (specimen) 05/30/2017 8:57 AM MORTGAGE LOAN ASSISTANT Narrative BREEZE PFT - 06/02/2017 2:39 PM MORTGAGE LOAN ASSISTANT Verified by Myrna Monreal on 06/02/2017. Freddy Dumont MD LAB - BLOOD ORD ERABLES BREEZE PFT LABDE SCAN * Tacrolimus level (05/30/2017 8:57 AM MORTGAGE LOAN ASSISTANT) Tacrolimus(FK-5 06) (External) 7.4 ng/mL LABDE SCAN Tacrolimus Last Dose (External) Not given LABDE SCAN Blood specimen (specimen) 05/30/2017 8:57 AM MORTGAGE LOAN ASSISTANT Narrative BREEZE PFT - 06/02/2017 2:16 PM MORTGAGE LOAN ASSISTANT Verified by Myrna Monreal on 06/02/2017. 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, 07/10/16 rectal swab 06/21/2016 06/21/2016 documented as of this encounter Care Teams Functional Support Analyst Relationship Specialty Start Date End Date Rubén Boyle MD PCP - General Family Practice 03/08/16 Pamela Blanco [place] [address] Referring Physician 07/13/16 Pedro Segura MD [facility] [address] [place], [place] [address] Nephrology 10/03/16 Freddy Craft MD 516 [facility] 2A [place], [place] [address] Assigned Gastroenterology Provider 02/08/20 Abdifatah Van MD 717 [facility] [address] [place], [place] 7986[address] Assigned Nephrology Provider 07/13/20 11/07/23 Nicole Carranza NP 420 [facility] 508 [place], [place] [address] Assigned Heart and Vascular Provider 01/09/22 Andressa Ruiz PA-C 420 [facility] 803 [place], [place] [address] Physician Art Therapist Endocrinology, Diabetes, and Metabolism 03/01/22 Ashlyn Storm RN [facility] 711 [place], [place] [address] Registered Nurse 03/03/22 09/15/22 Rubén Gunter [facility] 909 [place], [place] [address]995 Assigned MTM Pharmacist 02/27/22 Andressa Ruiz PA-C 420 [facility] 803 [place], [place] 2[address] Assigned Endocrinology Provider 03/13/22 09/07/23 Suzan Harry MD [address] [place] [address]74[address] Nephrology 06/30/23 Yasmeen Powers MD [address] [place], [place] 4068[address] Nephrology 10/24/23 Yasmeen Powers MD [address] [place], [place] 165185 Assigned Nephrology Provider 11/08/23 documented as of this encounter
--- OUTSIDE RECORDS SUMMARY | 2024-01-17 16:46 | XMS_ITS | Encounter Summary ---
Author Organization [facility] Address [address] [place] [address] Care Team Providers Care Marketing Proposal Specialist Name Role Phone Rubén Boyle MD Primary Care Provider [phone] Pamela Blanco POOL TABLE OPERATOR Unavailable Pedro Segura MD Unavailable Freddy Craft MD Unavailable [phone] Abdifatah Van MD Unavailable Nicole Carranza POOL TABLE OPERATOR Unavailable [phone] Andressa Ruiz-C Unavailable [phone] Ashlyn Storm RN Unavailable Rubén Gunter [facility] Unavailable Andressa Ruiz-C Unavailable Suzan Harry MD Unavailable [phone] Yasmeen Powers MD Unavailable [phone] Yasmeen Powers MD Unavailable [phone] Encounter Details Date Type Department Care Team (Latest Contact Info) Description 06/28/2017 External Order Results [facility] [address] [place] [address] Liver replaced by transplant (H); 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 transplant; long term care social worker use of drug Social History Tobacco Use [...] TANDEM MASS SPECTROMETRY Routine 06/20/2017 9:30 AM OFFICE CLERK Liver replaced by transplant (H) 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 transplant half-way use of drug PHOSPHORUS Routine 06/20/2017 9:30 AM OFFICE CLERK Liver replaced by transplant (H) 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 transplant half-way use of drug MAGNESIUM Routine 06/20/2017 9:30 AM OFFICE CLERK Liver replaced by transplant (H) 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 transplant half-way use of drug HEPATIC FUNCTION PANEL Routine 06/20/2017 9:30 AM OFFICE CLERK Liver replaced by transplant (H) 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 transplant half-way use of drug BASIC METABOLIC PANEL Routine 06/20/2017 9:30 AM OFFICE CLERK Liver replaced by transplant (H) 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 transplant long term care social worker use of drug CBC WITH PLATELETS Routine 06/20/2017 9: 30 AM OFFICE CLERK Liver replaced by transplant (H) 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 transplant half-way use of drug documented in this encounter Results * Tacrolimus level (06/20/2017 9:30 AM OFFICE CLERK) Tacrolimus(FK-5 06) (External) 6.3 5 - 8 ng/mL LABDE SCAN Blood specimen (specimen) 06/20/2017 9:30 AM OFFICE CLERK Subhash SINGH PFT - 06/28/2017 2:01 PM CDT Verified by Rhiannon Cain on 06/28/2017. Freddy Dumont MD LAB - BLOOD ORD ERABLES Performing Organization Address [facility]/ZIP Co de Phone Number BREEZE PFT LABDE SCAN * Hepatic panel (Albumin, ALT, AST, Bili, Alk Phos, TP) (06/20/2017 9:30 AM OFFICE CLERK) Albumin (External) 4.0 3.2 - 4.6 g/dL [...] SCAN Blood specimen (specimen) 06/20/2017 9:30 AM OFFICE CLERK Narrative BREEZE PFT - 06/28/2017 2:01 PM CDT Verified by Rhiannon Cain on 06/28/2017. Freddy Dumont MD LAB - BLOOD ORD ERABLES Performing Organization Address [facility] Co de Phone Number BREEZE PFT LABDE SCAN * (ABNORMAL) Phosphorus (06/20/2017 9:30 AM OFFICE CLERK) Phosphorus (External) 4.9(H) 2.3 - 4.7 mg/dL LABDE SCAN Blood specimen (specimen) 06/20/2017 9:30 AM OFFICE CLERK Narrative BREEZE PFT - 06/28/2017 2:01 PM CDT Verified by Rhiannon Cain on 06/28/2017. Freddy Dumont MD LAB - BLOOD ORD ERALASHAE BREEZE PFT LABDE SCAN * Magnesium (06/20/2017 9:30 AM OFFICE CLERK) Magnesium (External) 1.9 1.6 - 2.0 mg/dL LABDE SCAN Blood specimen (specimen) 06/20/2017 9:30 AM OFFICE CLERK Subhash SUAERZEZE PFT - 06/28/2017 2:01 PM CDT Verified by Rhiannon Cain on 06/28/2017. Freddy Dumont MD LAB - BLOOD ORD ERABLES ERICKEZE PFT LABDE SCAN * (ABNORMAL) Basic metabolic panel (06/20/2017 9:30 AM OFFICE CLERK) Sodium (External) 137 135 - 145 mmol/L [...] SCAN Blood specimen (specimen) 06/20/2017 9:30 AM OFFICE CLERK Narrative SAMANTHA PFT - 06/28/2017 2:01 PM CDT Verified by Rhiannon Cain on 06/28/2017. Freddy Dumont MD LAB - BLOOD ORD ERABLES ERICKEZE PFT LABDE SCAN * (ABNORMAL) CBC with platelets (06/20/2017 9:30 AM OFFICE CLERK) WBC Count (External) 2.4(L) 4.5 - 11.0 [...] SCAN Blood specimen (specimen) 06/20/2017 9:30 AM OFFICE CLERK Narrative AMNAKayli PFT - 06/28/2017 2:01 PM CDT Verified by Rhiannon Cain on 06/28/2017. 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, 07/10/16 rectal swab 06/21/2016 06/21/2016 documented as of this encounter Care Teams Marketing Proposal Specialist Relationship Specialty Start Date End Date Rubén Boyle MD PCP - General Family Practice 03/08/16 Pamela Blanco NP [facility] [address] [place] [address] Referring Physician 07/13/16 Pedro Segura MD [facility] [address] [place], [place] [address] Nephrology 10/03/16 Freddy Craft MD 516 [facility] 2[address] [place], [place] [address] Assigned Gastroenterology Provider 02/08/20 Abdifatah Van MD 7[address] [facility] [address] [place], [place] [address] Assigned Nephrology Provider 07/13/20 11/07/23 Nicole Carranza NP 420 [facility] 508 [place], [place] [address] Assigned Heart and Vascular Provider 01/09/22 Andressa Ruiz PA-C 420 [facility] 803 [place], [place] [address] Physician Stripper Machine Operator Endocrinology, Diabetes, and Metabolism 03/01/22 Ashlyn Storm RN [facility] 711 [place], [place] [address] Registered Nurse 03/03/22 09/15/22 Rubén Gunter [facility] 9[address] [facility] [place], [place] [address] Assigned MTM Pharmacist 02/27/22 Andressa Ruiz PA-C 420 [facility] 803 [place] [address] Assigned Endocrinology Provider 03/13/22 09/07/23 Suzan Harry MD [address] [place] [address] Nephrology 06/30/23 Yasmeen Powers MD 500 [place] [address] Nephrology 10/24/23 Yasmeen Powers MD 500 [place] [address] Assigned Nephrology Provider 11/08/23 documented as of this encounter
--- OUTSIDE RECORDS SUMMARY | 2024-01-17 16:46 | XMS_ITS | Encounter Summary ---
Author Organization [place] Address [address] [place] [address] Care Team Providers Care Awning Maker And Installer Name Role Phone Rubén Boyle MD Primary Care Provider Pamela Blanco FILLER ROOM ATTENDANT Unavailable Pedro Segura MD Unavailable Freddy Craft MD Unavailable [phone] Abdifatah Van MD Unavailable Nicole Carranza FILLER ROOM ATTENDANT Unavailable [phone] Andressa Ruiz-C Unavailable Ashlyn Storm RN Unavailable Rubén Gunter [facility] Unavailable Andressa Ruiz-C Unavailable Suzan Harry MD Unavailable [phone] Yasmeen Powers MD Unavailable [phone] Yasmeen Powers MD Unavailable [phone] Encounter Details Date Type Department Care Team (Latest Contact Info) Description 04/27/2017 External Order Results [facility] [address] [place] [address] Long-term use of immunosuppressant medication; [...] Diagnosis Comments PHOSPHORUS Routine 04/26/2017 8:55 AM GRAPHITE DISK ASSEMBLER Long-term use of immunosuppressant medication Liver replaced by transplant (H) MAGNESIUM Routine 04/26/2017 8:55 AM GRAPHITE DISK ASSEMBLER Long-term use of immunosuppressant medication Liver replaced by transplant (H) HEPATIC FUNCTION PANEL Routine 04/26/2017 8:55 AM GRAPHITE DISK ASSEMBLER Long-term use of immunosuppressant medication Liver replaced by transplant (H) BASIC METABOLIC PANEL Routine 04/26/2017 8:55 AM GRAPHITE DISK ASSEMBLER Long-term use of immunosuppressant medication Liver replaced by transplant (H) CBC WITH PLATELETS Routine 04/26/2017 8: 55 AM GRAPHITE DISK ASSEMBLER Long-term use of immunosuppressant medication Liver replaced by transplant (H) documented in this encounter Results * Phosphorus (04/26/2017 8:55 AM GRAPHITE DISK ASSEMBLER) Phosphorus (External) 3.9 2.3 - 4.7 mg/dL LABDE SCAN Blood specimen (specimen) 04/26/2017 8:55 AM GRAPHITE DISK ASSEMBLER Narrative SAMANTHA PFT - 04/27/2017 6:23 PM GRAPHITE DISK ASSEMBLER Verified by Myrna Monreal on 04/27/2017. Aime Vu MD LAB - BLOOD ORDERA BLES SAM[facility]THA PFT LABDE SCAN * Magnesium (04/26/2017 8:55 AM GRAPHITE DISK ASSEMBLER) Magnesium (External) 1.9 1.6 - 2.6 mg/dL LABDE SCAN Blood specimen (specimen) 04/26/2017 8:55 AM GRAPHITE DISK ASSEMBLER [facility] PFT - 04/27/2017 6:23 PM GRAPHITE DISK ASSEMBLER Verified by Myrna Monreal on 04/27/2017. Aime Vu MD LAB - BLOOD ORDERA BLES Performing Organization Address [facility] de Phone Number [facility] PFT LABDE SCAN * Hepatic panel (04/26/2017 8:55 AM GRAPHITE DISK ASSEMBLER) Albumin (External) 3.8 3.2 - 4.6 g/dL [...] SCAN Blood specimen (specimen) 04/26/2017 8:55 AM GRAPHITE DISK ASSEMBLER [facility] PFT - 04/27/2017 6:23 PM GRAPHITE DISK ASSEMBLER Verified by Myrna Monreal on 04/27/2017. Aime Vu MD LAB - BLOOD ORDERA BLES Performing Organization Address [facility] de Phone Number [facility] PFT LABDE SCAN * (ABNORMAL) CBC with platelets (04/26/2017 8:55 AM GRAPHITE DISK ASSEMBLER) WBC Count (External) 2.2(L) 4.5 - 11.0 [...] SCAN Blood specimen (specimen) 04/26/2017 8:55 AM GRAPHITE DISK ASSEMBLER Narrative SAMANTHA PFT - 04/27/2017 6:23 PM GRAPHITE DISK ASSEMBLER Verified by Myrna Monreal on 04/27/2017. Aime Vu MD LAB - BLOOD ORDERA BLES SAMANTHA PFT LABDE SCAN * (ABNORMAL) Basic metabolic panel (04/26/2017 8:55 AM GRAPHITE DISK ASSEMBLER) Sodium (External) 138 135 - 145 mmol/L [...] SCAN Blood specimen (specimen) 04/26/2017 8:55 AM GRAPHITE DISK ASSEMBLER Narrative SAMANTHA PFT - 04/27/2017 6:23 PM GRAPHITE DISK ASSEMBLER Verified by Myrna Monreal on 04/27/2017. Aime [...] documented as of this encounter Care Teams Awning Maker And Installer Relationship Specialty Start Date End Date Rubén Boyle MD PCP - General Family Practice 03/08/16 Pamela Blanco NP [facility] [address] [place], [place] [id number] Referring Physician 07/13/16 Pedro Segura MD [facility] [address] [place] [address] Nephrology 10/03/16 Freddy Craft MD [address] [facility] [address] [place] [address] Assigned Gastroenterology Provider 02/08/20 Abdifatah Van MD [address] [facility] [address] [place] [address] Assigned Nephrology Provider 07/13/20 11/07/23 Nicole Carranza NP 420 [facility] [address] [place] [address] Assigned Heart and Vascular Provider 01/09/22 Andressa Ruiz PA-C 420 [facility] [address]03 [place], [place] [address] Physician Welfare Eligibility Interviewer Endocrinology, Diabetes, and Metabolism 03/01/22 Ashlyn Storm RN [facility] [address] [place] [address] Registered Nurse 03/03/22 09/15/22 Rubén Gunter [facility] [address] [place] [address] Assigned MTM Pharmacist 02/27/22 Andressa Ruiz PA-C [address] [address] Assigned Endocrinology Provider 03/13/22 09/07/23 Suzan Harry MD 420 [place], [place] [address] Nephrology 06/30/23 Yasmeen Powers MD 500 [place] [address] Nephrology 10/24/23 Yasmeen Powers MD [address] [place] [address] Assigned Nephrology Provider 11/08/23 documented as of this encounter
--- OUTSIDE RECORDS SUMMARY | 2024-01-17 16:46 | XMS_ITS | Encounter Summary ---
Author Organization [place] Address [address] [place] [address] Care Team Providers Care Industrial Sociologist Name Role Phone Rubén Boyle MD Primary Care Provider Pamela Blanco RN CLINICAL QUALITY Unavailable Pedro Segura MD Unavailable Freddy Craft MD Unavailable [phone] Abdifatah Van MD Unavailable Nicole Carranza RN CLINICAL QUALITY Unavailable [phone] Andressa Ruiz-C Unavailable Ashlyn Storm RN Unavailable [phone] Rubén Gunter [facility] Unavailable Andressa Ruiz-C Unavailable Suzan Harry MD Unavailable [phone] Yasmeen Powers MD Unavailable [phone] Yasmeen Powers MD Unavailable [phone] Encounter Details Date Type Department Care Team (Latest Contact Info) Description 05/19/2017 External Order Results [facility] [address] [place] [address] Long-term use of immunosuppressant medication; [...] TANDEM MASS SPECTROMETRY Routine 05/16/2017 8:57 AM INSPECTOR PLUMBING Long-term use of immunosuppressant medication Liver replaced by transplant (H) PHOSPHORUS Routine 05/16/2017 8:57 AM INSPECTOR PLUMBING Long-term use of immunosuppressant medication Liver replaced by transplant (H) MAGNESIUM Routine 05/16/2017 8:57 AM INSPECTOR PLUMBING Long-term use of immunosuppressant medication Liver replaced by transplant (H) HEPATIC FUNCTION PANEL Routine 05/16/2017 8:57 AM INSPECTOR PLUMBING Long-term use of immunosuppressant medication Liver replaced by transplant (H) BASIC METABOLIC PANEL Routine 05/16/2017 8:57 AM INSPECTOR PLUMBING Long-term use of immunosuppressant medication Liver replaced by transplant (H) CBC WITH PLATELETS Routine 05/16/2017 8: 57 AM INSPECTOR PLUMBING Long-term use of immunosuppressant medication Liver replaced by transplant (H) documented in this encounter Results * Tacrolimus level (05/16/2017 8:57 AM INSPECTOR PLUMBING) Tacrolimus(FK-5 06) (External) 7.3 5 - 8 ng/mL LABDE SCAN Tacrolimus Last Dose (External) Not given LABDE SCAN Blood specimen (specimen) 05/16/2017 8:57 AM INSPECTOR PLUMBING Narrative SAMANTHA PFT - 05/19/2017 8:13 PM INSPECTOR PLUMBING Verified by Myrna Monreal on 05/19/2017. Varvara A Mirella MD LAB - BLOOD ORDERA BLES Performing Organization Address City/[facility]/ZIP Co de Phone Number [facility] PFT LABDE SCAN * Hepatic panel (05/16/2017 8:57 AM INSPECTOR PLUMBING) Albumin (External) 3.7 3.2 - 4.6 g/dL [...] SCAN Blood specimen (specimen) 05/16/2017 8:57 AM INSPECTOR PLUMBING Narrative [facility] PFT - 05/19/2017 4:56 AM INSPECTOR PLUMBING Verified by Rhiannon Cain on 05/19/2017. Aime Vu MD LAB - BLOOD ORDERA BLES Performing Organization Address [facility] Co de Phone Number [facility] PFT LABDE SCAN * Magnesium (05/16/2017 8:57 AM INSPECTOR PLUMBING) Magnesium (External) 1.7 1.6 - 2.6 mg/dL LABDE SCAN Blood specimen (specimen) 05/16/2017 8:57 AM INSPECTOR PLUMBING Narrative [facility] PFT - 05/19/2017 4:56 AM INSPECTOR PLUMBING Verified by Rhiannon Cain on 05/19/2017. Aime Vu MD LAB - BLOOD ORDERA BLES Performing Organization Address [facility]/ZIP Co de Phone Number [facility] LABDE SCAN * Phosphorus (05/16/2017 8:57 AM INSPECTOR PLUMBING) Phosphorus (External) 3.4 2.3 - 4.7 mg/dL LABDE SCAN Blood specimen (specimen) 05/16/2017 8:57 AM INSPECTOR PLUMBING Narrative [facility] PFT - 05/19/2017 4:56 AM INSPECTOR PLUMBING Verified by Rhiannon Cain on 05/19/2017. Aime Vu MD LAB - BLOOD ORDERA BLES Performing Organization Address [facility] Co de Phone Number [facility] LABDE SCAN * (ABNORMAL) Basic metabolic panel (05/16/2017 8:57 AM INSPECTOR PLUMBING) Sodium (External) 140 135 - 145 mmol/L [...] SCAN Blood specimen (specimen) 05/16/2017 8:57 AM INSPECTOR PLUMBING Narrative [facility] PFT - 05/19/2017 4:56 AM INSPECTOR PLUMBING Verified by Rhiannon Cain on 05/19/2017. Aime Vu MD LAB - BLOOD ORDERA BLES Performing Organization Address [facility]/ZIP Co de Phone Number [facility] LABDE SCAN * (ABNORMAL) CBC with platelets (05/16/2017 8:57 AM INSPECTOR PLUMBING) WBC Count (External) 2.1(L) 4.5 - 110 [...] SCAN Blood specimen (specimen) 05/16/2017 8:57 AM INSPECTOR PLUMBING Narrative SAMANTHA PFT - 05/19/2017 4:56 AM INSPECTOR PLUMBING Verified by Rhiannon Cain on 05/19/2017. Aime [...] as of this encounter Care Teams Industrial Sociologist Relationship Specialty Start Date End Date Rubén Boyle MD PCP - General Family Practice 03/08/16 Pamela Blanco RN CLINICAL QUALITY [facility] [address] [place] [address] Referring Physician 07/13/16 Pedro Segura MD [facility] [address] [place] [address] Nephrology 10/03/16 Freddy Craft MD [address] [facility] [place], [place] [address] Assigned Gastroenterology Provider 02/08/20 Abdifatah Van MD [address] [facility] [address] [place] [address] Assigned Nephrology Provider 07/13/20 11/07/23 Nicole Carranza NP 420 [facility] [address] [place], [place] [address] Assigned Heart and Vascular Provider 01/09/22 Andressa Ruiz PA-C 420 [facility] 803 [place] [address] Physician Dietetic Aide Endocrinology, Diabetes, and Metabolism 03/01/22 Ashlyn Storm, RN [facility] [address] [place], [place] [address] Registered Nurse 03/03/22 09/15/22 Rubén Gunter [facility] [address] [place] [address] [place] [address] Assigned MTM Pharmacist 02/27/22 Andressa Ruiz PA-C 420 [facility] 803 [place] [address] Assigned Endocrinology Provider 03/13/22 09/07/23 Suzan Harry MD 420 [place] [address] Nephrology 06/30/23 Yasmeen Powers MD 500 [place] [address] Nephrology 10/24/23 Yasmeen Powers MD [address] [place] [address] Assigned Nephrology Provider 11/08/23 documented as of this encounter
--- OUTSIDE RECORDS SUMMARY | 2024-01-17 16:46 | XMS_ITS | Encounter Summary ---
Author Organization [place] Address [address] [place] [address] Care Team Providers Care Cashiers Bussers Food Runners Name Role Phone Rubén Boyle MD Primary Care Provider Pamela Blanco ENGINE TESTER Unavailable Pedro Segura MD Unavailable Freddy Craft MD Unavailable [phone] Abdifatah Van MD Unavailable Nicole Carranza ENGINE TESTER Unavailable [phone] Andressa Ruiz-C Unavailable Ashlyn Storm RN Unavailable Rubén Gunter [facility] Unavailable Andressa Ruiz-C Unavailable Suzan Harry MD Unavailable [phone] Yasmeen Powers MD Unavailable Yasmeen Powers MD Unavailable [phone] Encounter Details Date Type Department Care Team (Latest Contact Info) Description 05/04/[address] [facility] [address] [place] [address] Long-term use of immunosuppressant medication; Liver replaced by transplant (H); 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 transplant; um rn use of drug Social History Tobacco Use [...] TANDEM MASS SPECTROMETRY Routine 05/03/2017 9:10 AM TOWER CLEANER Liver replaced by transplant (H) 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 transplant jail use of drug PHOSPHORUS Routine 05/03/2017 9:10 AM TOWER CLEANER Long-term use of immunosuppressant medication Liver replaced by transplant (H) MAGNESIUM Routine 05/03/2017 9:10 AM TOWER CLEANER Long-term use of immunosuppressant medication Liver replaced by transplant (H) HEPATIC FUNCTION PANEL Routine 05/03/2017 9:10 AM TOWER CLEANER Long-term use of immunosuppressant medication Liver replaced by transplant (H) DIFFERENTIAL Routine 05/03/2017 9:10 AM TOWER CLEANER BASIC METABOLIC PANEL Routine 05/03/2017 9:10 AM TOWER CLEANER Long-term use of immunosuppressant medication Liver replaced by transplant (H) CBC WITH PLATELETS Routine 05/03/2017 9: 10 AM TOWER CLEANER Long-term use of immunosuppressant medication Liver replaced by transplant (H) documented in this encounter Results * Tacrolimus level (05/03/2017 9:10 AM TOWER CLEANER) Tacrolimus(FK-5 06) (External) 8.2 ng/mL LABDE SCAN Tacrolimus Last Dose (External) 05/02/2017 at 2000 LABDE SCAN Blood specimen (specimen) 05/03/2017 9:10 AM TOWER CLEANER Narrative [facility] PFT - 05/05/2017 2:00 PM TOWER CLEANER Verified by Cruzito Marlow on 05/05/2017. Freddy Dumont MD LAB - BLOOD ORD ERABLES [facility] PFT LABDE SCAN * (ABNORMAL) WBC Differential (05/03/2017 9:10 AM TOWER CLEANER) Method (External) Manual Diff LABDE SCAN % [...] SCAN Blood specimen (specimen) 05/03/2017 9:10 AM TOWER CLEANER Narrative SAMANTHA PFT - 05/04/2017 7:58 AM TOWER CLEANER Verified by Cruzito Marlow on 05/04/2017. Patient Reported LAB - BLOOD ORDERABL ES [facility] LABDE SCAN * (ABNORMAL) CBC with platelets (05/03/2017 9:10 AM TOWER CLEANER) WBC Count (External) 1.9(LL) 4.5 - 11.0 [...] SCAN Blood specimen (specimen) 05/03/2017 9:10 AM TOWER CLEANER Narrative [facility] PFT - 05/04/2017 7:58 AM TOWER CLEANER Verified by Cruzito Marlow on 05/04/2017. Aime Vu MD LAB - BLOOD ORDERA BLES Performing Organization Address City/[facility]/ZIP Co de Phone Number [facility] LABDE SCAN * Phosphorus (05/03/2017 9:10 AM TOWER CLEANER) Phosphorus (External) 3.9 2.3 - 4.7 mg/dL LABDE SCAN Blood specimen (specimen) 05/03/2017 9:10 AM TOWER CLEANER Narrative [facility] PFT - 05/04/2017 7:58 AM TOWER CLEANER Verified by Cruzito Marlow on 05/04/2017. Aime Vu MD LAB - BLOOD ORDERA BLES [facility] LABDE SCAN * Magnesium (05/03/2017 9:10 AM TOWER CLEANER) Magnesium (External) 1.8 1.6 - 2.6 mg/dL LABDE SCAN Blood specimen (specimen) 05/03/2017 9:10 AM TOWER CLEANER Narrative [facility] PFT - 05/04/2017 7:58 AM TOWER CLEANER Verified by Cruzito Marlow on 05/04/2017. Aime Vu MD LAB - BLOOD ORDERA BLES Performing Organization Address [facility] de Phone Number SAMANTHA PFT LABDE SCAN * (ABNORMAL) Hepatic panel (05/03/2017 9:10 AM TOWER CLEANER) Albumin (External) 3.7 3.2 - 4.6 g/dL [...] SCAN Blood specimen (specimen) 05/03/2017 9:10 AM TOWER CLEANER Narrative SAMANTHA PFT - 05/04/2017 7:58 AM TOWER CLEANER Verified by Cruzito Marlow on 05/04/2017. Aime Vu MD LAB - BLOOD ORDERA BLES Performing Organization Address [facility] de Phone Number SAM[facility]THA PFT LABDE SCAN * (ABNORMAL) Basic metabolic panel (05/03/2017 9:10 AM TOWER CLEANER) Sodium (External) 138 135 - 145 mmol/L [...] SCAN Blood specimen (specimen) 05/03/2017 9:10 AM TOWER CLEANER Narrative SAMANTHA PFT - 05/04/2017 7:58 AM TOWER CLEANER Verified by Cruzito Marlow on 05/04/2017. Aime Vu MD LAB - BLOOD LESTERA SOCOS SAM[facility] PFT LABDE SCAN documented in this encounter Visit Diagnoses Diagnosis Long-term use of immunosuppressant medication Encounter for long-term (current) use of other medications Liver replaced by transplant (H) Liver replaced by transplant 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 transplant jail use of drug Encounter for long-term (current) use of other medications documented in this encounter Additional Health Concerns Infection Onset Date Last Indicated Resolved Time 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/16 urine, 07/10/16 rectal swab 06/21/2016 06/21/2016 documented as of this encounter Care Teams Cashiers Bussers Food Runners Relationship Specialty Start Date End Date Rubén Boyle MD PCP - General Family Practice 03/08/16 Pamela Blanco NP [facility] [address] [place], [place] [address] Referring Physician 07/13/16 Pedro Segura MD [facility] [address] [place], [place] [address] Nephrology 10/03/16 Freddy Craft MD [address] [place] [address] [id number] Assigned Gastroenterology Provider 02/08/20 Abdifatah Van MD 717 [facility] [address] [place] [address] Assigned Nephrology Provider 07/13/20 11/07/23 Nicole Carranza NP 420 [facility] [address] [place] [address] Assigned Heart and Vascular Provider 01/09/22 Andressa Ruiz PA-C 420 [facility] 803 [place], [place] [address] Physician Spine Surgeon Endocrinology, Diabetes, and Metabolism 03/01/22 Ashlyn Storm RN [facility] 7[address] [place], [place] [address] Registered Nurse 03/03/22 09/15/22 Rubén Gunter [facility] [address] [place] [id number] Assigned MTM Pharmacist 02/27/22 Andressa Ruiz PA-C 420 [facility] 803 [place] [address] Assigned Endocrinology Provider 03/13/22 09/07/23 Suzan Harry MD 420 [place] [address] Nephrology 06/30/23 Yasmeen Powers MD [address] [place] [address] Nephrology 10/24/23 Yasmeen Powers MD 500 [place] [address] Assigned Nephrology Provider 11/08/23 documented as of this encounter
--- OUTSIDE RECORDS SUMMARY | 2024-01-17 16:47 | XMS_ITS | Encounter Summary ---
Author Organization [place] Address [address] [place] [address] Care Team Providers Care Telecommunications Field Engineer Name Role Phone Rubén Boyle MD Primary Care Provider Pamela Blanco HEALTHCARE ADMINISTRATIVE ASSISTANT Unavailable [phone] Pedro Segura MD Unavailable [phone] Freddy Craft MD Unavailable [phone] Abdifatah Van MD Unavailable Nicole Carranza HEALTHCARE ADMINISTRATIVE ASSISTANT Unavailable [phone] Andressa Ruiz-C Unavailable Ashlyn Storm RN Unavailable Rubén Gunter [facility] Unavailable Andressa Ruiz-C Unavailable Suzan Harry MD Unavailable [phone] Yasmeen Powers MD Unavailable Yasmeen Powers MD Unavailable [phone] Encounter Details Date Type Department Care Team (Latest Contact Info) Description 03/13/2017 External Order Results [facility] [address] [place] [address] Long-term use of immunosuppressant medication; [...] TANDEM MASS SPECTROMETRY Routine 03/07/2017 8:25 AM CRACKING AND FANNING MACHINE OPERATOR Long-term use of immunosuppressant medication Liver replaced by transplant (H) documented in this encounter Results * Tacrolimus level (03/07/2017 8:25 AM CRACKING AND FANNING MACHINE OPERATOR) Tacrolimus(FK-5 06) (External) 11.9 ng/mL LABDE SCAN Tacrolimus Last Dose (External) not given LABDE SCAN Blood specimen (specimen) 03/07/2017 8:25 AM CRACKING AND FANNING MACHINE OPERATOR Narrative SAMANTHA PFT - 03/13/2017 9:11 AM CRACKING AND FANNING MACHINE OPERATOR Verified by Myrna Monreal on 03/13/2017. Aime [...] documented as of this encounter Care Teams Telecommunications Field Engineer Relationship Specialty Start Date End Date Rubén Boyle MD PCP - General Family Practice 03/08/16 Pamela lBanco HEALTHCARE ADMINISTRATIVE ASSISTANT [facility] [address] [place] [address] Referring Physician 07/13/16 Pedro Segura MD [facility] [address] [place] [address] Nephrology 10/03/16 Freddy Craft MD [address] [facility] [address] [place], [place] [address] Assigned Gastroenterology Provider 02/08/20 Abdifatah Van MD 717 [facility] [address] [place] [address] Assigned Nephrology Provider 07/13/20 11/07/23 Nicole Carranza NP 420 [facility] [address] [place], [place] [address] Assigned Heart and Vascular Provider 01/09/22 Andressa Ruiz PA-C 420 [facility] 803 [place], [place] [address] Physician Skein Yarn Dyer Endocrinology, Diabetes, and Metabolism 03/01/22 Ashlyn Storm, RN [facility] 7[address] [place] [address] Registered Nurse 03/03/22 09/15/22 Rubén Gunter [facility] 909 [facility] [address] [place], [place] [address] Assigned MTM Pharmacist 02/27/22 Andressa Ruiz PA-C 420 [facility] 803 [place] [address] Assigned Endocrinology Provider 03/13/22 09/07/23 Suzan Harry MD 420 [place] [address] Nephrology 06/30/23 Yasmeen Powers MD 500 [place] [address] Nephrology 10/24/23 Yasmeen Powers MD 500 [place] [address] Assigned Nephrology Provider 11/08/23 documented as of this encounter
--- OUTSIDE RECORDS SUMMARY | 2024-01-17 16:47 | XMS_ITS | Encounter Summary ---
Author Organization [place] Address [address] [place] [address] Care Team Providers Care Cryptologist Name Role Phone Rubén Boyle MD Primary Care Provider [phone] Pamela Blanco AUTOMOBILE ASSEMBLY SUPERVISOR Unavailable [phone] Pedro Segura MD Unavailable [phone] Freddy Craft MD Unavailable [phone] Abdifatah Van MD Unavailable Nicole Carranza AUTOMOBILE ASSEMBLY SUPERVISOR Unavailable [phone] Andressa Ruiz-C Unavailable Ashlyn Storm RN Unavailable Rubén Gunter [facility] Unavailable Andressa Ruiz-C Unavailable [phone] Suzan Harry MD Unavailable [phone] Yasmeen Powers MD Unavailable [phone] Yasmeen Powers MD Unavailable [phone] Encounter Details Date Type Department Care Team (Latest Contact Info) Description 04/08/2017 External Order Results [facility] 9[address] [place] [address] Long-term use of immunosuppressant medication; [...] Diagnosis Comments PHOSPHORUS Routine 04/06/2017 12:14 PM PACKING AND STAMPING MACHINE OPERATOR Long-term use of immunosuppressant medication Liver replaced by transplant (H) MAGNESIUM Routine 04/06/2017 12:14 PM PACKING AND STAMPING MACHINE OPERATOR Long-term use of immunosuppressant medication Liver replaced by transplant (H) HEPATIC FUNCTION PANEL Routine 04/06/2017 12:14 PM PACKING AND STAMPING MACHINE OPERATOR Long-term use of immunosuppressant medication Liver replaced by transplant (H) BASIC METABOLIC PANEL Routine 04/06/2017 12:14 PM PACKING AND STAMPING MACHINE OPERATOR Long-term use of immunosuppressant medication Liver replaced by transplant (H) CBC WITH PLATELETS Routine 04/06/2017 12 :14 PM PACKING AND STAMPING MACHINE OPERATOR Long-term use of immunosuppressant medication Liver replaced by transplant (H) documented in this encounter Results * Phosphorus (04/06/2017 12:14 PM PACKING AND STAMPING MACHINE OPERATOR) Phosphorus (External) 2.3 2.3 - 4.7 mg/dL LABDE SCAN Blood specimen (specimen) 04/06/2017 12:14 PM PACKING AND STAMPING MACHINE OPERATOR Narrative SAMANTHA PFT - 04/08/2017 4:18 PM PACKING AND STAMPING MACHINE OPERATOR Verified by Myrna Monreal on 04/08/2017. Aime Vu MD LAB - BLOOD ORDERA BLES B[facility] PFT LABDE SCAN * (ABNORMAL) Magnesium (04/06/2017 12:14 PM PACKING AND STAMPING MACHINE OPERATOR) Magnesium (External) 1.3(L) 1.6 - 2.6 mg/dL LABDE SCAN Blood specimen (specimen) 04/06/2017 12:14 PM PACKING AND STAMPING MACHINE OPERATOR Narrative BREEZE PFT - 04/08/2017 4:18 PM PACKING AND STAMPING MACHINE OPERATOR Verified by Myrna Monreal on 04/08/2017. Aime Vu MD LAB - BLOOD ORDERA BLES Performing Organization Address [facility] Co de Phone Number [facility] LAB[facility] * Hepatic panel (04/06/2017 12:14 PM PACKING AND STAMPING MACHINE OPERATOR) Albumin (External) 4.0 3.2 - 4.6 [...] SCAN Blood specimen (specimen) 04/06/2017 12:14 PM PACKING AND STAMPING MACHINE OPERATOR N[facility]ative [facility] - 04/08/2017 4:18 PM PACKING AND STAMPING MACHINE OPERATOR Verified by Myrna Monreal on 04/08/2017. Aime Vu MD LAB - BLOOD ORDERA BLES Performing Organization Address [facility] Co de Phone Number [facility] LABDE SC[facility] * (ABNORMAL) CBC with platelets (04/06/2017 12:14 PM PACKING AND STAMPING MACHINE OPERATOR) WBC Count (External) 2.7(L) 4.5 - [...] SCAN Blood specimen (specimen) 04/06/2017 12:14 PM PACKING AND STAMPING MACHINE OPERATOR Narrative SAMANTHA PFT - 04/08/2017 4:18 PM PACKING AND STAMPING MACHINE OPERATOR Verified by Myrna Monreal on 04/08/2017. Aime Vu MD LAB - BLOOD ORDERA BLES SAMANTHA PFT LABDE SCAN * (ABNORMAL) Basic metabolic panel (04/06/2017 12:14 PM PACKING AND STAMPING MACHINE OPERATOR) Sodium (External) 139 135 - 145 mmol/L [...] SCAN Blood specimen (specimen) 04/06/2017 12:14 PM PACKING AND STAMPING MACHINE OPERATOR Narrative SAMANTHA PFT - 04/08/2017 4:18 PM PACKING AND STAMPING MACHINE OPERATOR Verified by Myrna Monreal on 04/08/2017. Aime [...] documented as of this encounter Care Teams Cryptologist Relationship Specialty Start Date End Date Rubén Boyle MD PCP - General Family Practice 03/08/16 Pamela Blanco NP [facility] [address] [place], [place] 7[address]757 Referring Physician 07/13/16 Pedro Segura MD [facility] [address] [place], [place] 226847 Nephrology 10/03/16 Freddy Craft MD 516 [facility] 2A [place], [place] 7[address]285 Assigned Gastroenterology Provider 02/08/20 Abdifatah Van MD 717 [facility] [address] [place], [place] 021674 Assigned Nephrology Provider 07/13/20 11/07/23 Nicole Carranza NP [address] [place] [address] 508 [place] [address] Assigned Heart and Vascular Provider 01/09/22 Andressa Ruiz PA-C 420 [facility] 803 [place] [address] Physician Automobile Accessories Salesperson Endocrinology, Diabetes, and Metabolism 03/01/22 Ashlyn Storm, RN [facility] 711 [place] [address] Registered Nurse 03/03/22 09/15/22 Rubén Gunter [facility] [address] [place] [address] Assigned MTM Pharmacist 02/27/22 Andressa Ruiz PA-C [address] [place] [address] 803 [place] [address] Assigned Endocrinology Provider 03/13/22 09/07/23 Suzan Harry MD [address] [place] [address] Nephrology 06/30/23 Yasmeen Powers MD 500 [place] [address] Nephrology 10/24/23 Yasmeen Powers MD 500 [place] [address] Assigned Nephrology Provider 11/08/23 documented as of this encounter
--- OUTSIDE RECORDS SUMMARY | 2024-01-17 16:47 | XMS_ITS | Encounter Summary ---
Author Organization [place] Address [address] [place] [address] Care Team Providers Care Supervisor Of Research Name Role Phone Rubén Boyle MD Primary Care Provider Pamela Blanco CLOTH DESIGNER Unavailable Pedro Segura MD Unavailable Freddy Craft MD Unavailable Abdifatah Van MD Unavailable Nicole Carranza CLOTH DESIGNER Unavailable [phone] Andressa Ruiz-C Unavailable [phone] Ashlyn Storm RN Unavailable Rbuén Gunter [facility] Unavailable Andressa Ruiz-C Unavailable Suzan Harry MD Unavailable [phone] Yasmeen Powers MD Unavailable [phone] Yasmeen Powers MD Unavailable [phone] Encounter Details Date Type Department Care Team [...] as of this encounter Care Teams Supervisor Of Research Relationship Specialty Start Date End Date Rubén Boyle MD PCP - General Family Practice 03/08/[address] [facility] [address] [place], [place] 8[address] Referring Physician 07/13/[address] [facility] [address] [place] [address] Nephrology 10/03/16 Freddy Craft MD [address] [facility] [address] [place] [address] Assigned Gastroenterology Provider 02/08/20 Abdifatah Van MD [address] [facility] [address] [place] [address] Assigned Nephrology Provider 07/13/20 11/07/23 Nicole Carranza NP [address] [facility] SE M[facility] [address] [place], [place] 811615 Assigned Heart and Vascular Provider 01/09/22 Andressa Ruiz PA-C 420 [facility] 803 [place] [address] Physician Industrial Aerial Installer Endocrinology, Diabetes, and Metabolism 03/01/22 Ashlyn Storm, RN [facility] 711 [place] [address] Registered Nurse 03/03/22 09/15/22 Rubén Gunter [facility] [address] [place] [address] Assigned MTM Pharmacist 02/27/22 Andressa Ruiz PA-C 420 [facility] 803 [place] [address] Assigned Endocrinology Provider 03/13/22 09/07/23 Suzan Harry MD 420 [place] [address] Nephrology 06/30/23 Yasmeen Powers MD 500 [place] [address] Nephrology 10/24/23 Yasmeen Powers MD 500 [place] [address] Assigned Nephrology Provider 11/08/23 documented as of this encounter
--- OUTSIDE RECORDS SUMMARY | 2024-01-17 16:47 | XMS_ITS | Encounter Summary ---
Author Organization [place] Address [address] [place] [address] Care Team Providers Care Sand Bobber Name Role Phone Rubén Boyle MD Primary Care Provider Pamela Blanco PEDIATRIC ANESTHESIOLOGIST Unavailable Pedro Segura MD Unavailable Freddy Craft MD Unavailable [phone] Abdifatah Van MD Unavailable Nicole Carranza PEDIATRIC ANESTHESIOLOGIST Unavailable [phone] Andressa Ruiz-C Unavailable [phone] Ashlyn Storm RN Unavailable Rubén Gunter [facility] Unavailable Andressa Ruiz-C Unavailable Suzan Harry MD Unavailable [phone] Yasmeen Powers MD Unavailable [phone] Yasmeen Powers MD Unavailable [phone] Encounter Details Date Type Department Care Team (Late st Contact Info) Description 03/23/2017 [facility] 909 [place] [address] Christina Joseph RN Social History [...] documented as of this encounter Care Teams Sand Bobber Relationship Specialty Start Date End Date Rubén Boyle MD PCP - General Family Practice 03/08/16 Pamela Blanco NP [facility] [address] [place], [place] 346707 Referring Physician 07/13/16 Pedro Segura MD [facility] [address] [place], [place] 953757 Nephrology 10/03/16 Freddy Craft MD 516 [facility] [place], [place] 402755 Assigned Gastroenterology Provider 02/08/20 Abdifatah Van MD 717 [facility] [address] [place] [address] Assigned Nephrology Provider 07/13/20 11/07/23 Nicole Carranza NP 420 [facility] 508 [place] [address] Assigned Heart and Vascular Provider 01/09/22 Andressa Ruiz PA-C 420 [facility] 803 [place] [address] Physician Steam Flattener Endocrinology, Diabetes, and Metabolism 03/01/22 Ashlyn Storm, RN [facility] 711 [place] [address] Registered Nurse 03/03/22 09/15/22 Rubén Gunter [facility] [address] [place] [address] Assigned MTM Pharmacist 02/27/22 Andressa Ruiz PA-C 420 [facility] 803 [place] [address] Assigned Endocrinology Provider 03/13/22 09/07/23 Suzan Harry MD 420 [place] [address] Nephrology 06/30/23 Yasmeen Powers MD 500 [place] [address] Nephrology 10/24/23 Yasmeen Powers MD 500 [place] [address] Assigned Nephrology Provider 11/08/23 documented as of this encounter
--- OUTSIDE RECORDS SUMMARY | 2024-01-17 16:47 | XMS_ITS | Encounter Summary ---
Author Organization [place] Address [address] [place] [address] Care Team Providers Care Medart Operator Name Role Phone Rubén Boyle MD Primary Care Provider Pamela Blanco RESPIRATORY THERAPY INSTRUCTOR Unavailable Pedro Segura MD Unavailable Freddy rCaft MD Unavailable Abdifatah Van MD Unavailable Nicole Carranza RESPIRATORY THERAPY INSTRUCTOR Unavailable [phone] Andressa Ruiz-C Unavailable Ashlyn Storm RN Unavailable Rubén Gunter [facility] Unavailable Andressa Ruiz-C Unavailable [phone] Suzan Harry MD Unavailable [phone] Yasmeen Powers MD Unavailable [phone] Yasmeen Powers MD Unavailable [phone] Encounter Details Date Type Department Care Team (Late st Contact Info) Description 01/17/2017 External Order Results [facility] [address] [place] [address] Social History Tobacco Use Types [...] documented as of this encounter Care Teams Medart Operator Relationship Specialty Start Date End Date Rubén Boyle MD PCP - General Family Practice 03/08/16 Pamela Blanco RESPIRATORY THERAPY INSTRUCTOR [facility] [address] [place] [address] Referring Physician 07/13/16 Pedro Segura MD [facility] [address] [place] [address] Nephrology 10/03/16 Freddy Craft MD 516 [facility] 2A [place], [place] 269355 Assigned Gastroenterology Provider 02/08/20 Abdifatah Van MD 717 [facility] [address] [place], [place] 7[address]674 Assigned Nephrology Provider 07/13/20 11/07/23 Nicole Carranza NP 420 [facility] 508 [place], [place] 856005 Assigned Heart and Vascular Provider 01/09/22 Andressa Ruiz PA-C 420 [facility] 803 [place], [place] 526435 Physician Expressive Art Therapist Endocrinology, Diabetes, and Metabolism 03/01/22 Ashlyn Storm, RN [facility] 711 [place], [place] [address] Registered Nurse 03/03/22 09/15/22 Rubén Gunter [facility] 909 [place], [place] 6[address] Assigned MTM Pharmacist 02/27/22 Andressa Ruiz PA-C 420 [facility] 803 [place], [place] 816515 Assigned Endocrinology Provider 03/13/22 09/07/23 Suzan Harry MD [address] [place] [address]166[address] Nephrology 06/30/23 Yasmeen Powers MD 500 [place], [place] 594585 Nephrology 10/24/23 Yasmeen Powers MD 500 [place], [place] 390575 Assigned Nephrology Provider 11/08/23 documented as of this encounter
--- OUTSIDE RECORDS SUMMARY | 2024-01-17 16:47 | XMS_ITS | Encounter Summary ---
Author Organization [place] Address [address] [place] [address] Care Team Providers Care Automatic Embroidery Machine Tender Name Role Phone Rubén Boyle MD Primary Care Provider [phone] Pamela Blanco PET CARE TECHNICIAN Unavailable [phone] Pedro Segura MD Unavailable Freddy Craft MD Unavailable Abdifatah Van MD Unavailable Nicole Carranza PET CARE TECHNICIAN Unavailable [phone] Andressa Ruiz-C Unavailable Ashlyn Storm RN Unavailable Rubén Gunter [facility] Unavailable Andressa Ruiz-C Unavailable Suzan Harry MD Unavailable [phone] Yasmeen Powers MD Unavailable [phone] Yasmeen Powers MD Unavailable [phone] Encounter Details Date Type Department Care Team (Latest Contact Info) Description 03/22/2017 External Order Results [facility] 909 [place] [address] Long-term use of immunosuppressant medication; [...] Diagnosis Comments PHOSPHORUS Routine 03/21/2017 10:40 AM SALES ATTENDANT Long-term use of immunosuppressant medication Liver replaced by transplant (H) MAGNESIUM Routine 03/21/2017 10:40 AM SALES ATTENDANT Long-term use of immunosuppressant medication Liver replaced by transplant (H) HEPATIC FUNCTION PANEL Routine 03/21/2017 10:40 AM SALES ATTENDANT Long-term use of immunosuppressant medication Liver replaced by transplant (H) BASIC METABOLIC PANEL Routine 03/21/2017 10:40 AM SALES ATTENDANT Long-term use of immunosuppressant medication Liver replaced by transplant (H) CBC WITH PLATELETS Routine 03/21/2017 10 :40 AM SALES ATTENDANT Long-term use of immunosuppressant medication Liver replaced by transplant (H) documented in this encounter Results * (ABNORMAL) Hepatic panel (03/21/2017 10:40 AM SALES ATTENDANT) Albumin (External) 4.1 3.2 - 4.6 g/dL [...] SCAN Blood specimen (specimen) 03/21/2017 10:40 AM SALES ATTENDANT Narrative B[facility]ZE PFT - 03/22/2017 10:51 AM SALES ATTENDANT Verified by Rhiannon Cain on 03/22/2017. Aime Vu MD LAB - BLOOD ORDERA BLES Performing Organization Address [facility] de Phone Number BREEZE PFT LABDE SCAN * (ABNORMAL) Magnesium (03/21/2017 10:40 AM SALES ATTENDANT) Magnesium (External) 1.4(L) 1.6 - 2.6 mg/dL LABDE SCAN Blood specimen (specimen) 03/21/2017 10:40 AM SALES ATTENDANT Narrative BREEZE PFT - 03/22/2017 10:51 AM SALES ATTENDANT Verified by Rhiannon Cain on 03/22/2017. Aime Vu MD LAB - BLOOD ORDERA BLES Performing Organization Address [facility] de Phone Number BREEZE PFT LABDE SCAN * Phosphorus (03/21/2017 10:40 AM SALES ATTENDANT) Phosphorus (External) 2.9 2.3 - 4.7 mg/dL LABDE SCAN Blood specimen (specimen) 03/21/2017 10:40 AM SALES ATTENDANT Narrative BREEZE PFT - 03/22/2017 10:51 AM SALES ATTENDANT Verified by Rhiannon Cain on 03/22/2017. Aime Vu MD LAB - BLOOD ORDERA BLES Performing Organization Address [facility] de Phone Number BREEZE PFT LABDE SCAN * (ABNORMAL) Basic metabolic panel (03/21/2017 10:40 AM SALES ATTENDANT) Sodium (External) 139 135 - 145 mmol/L [...] SCAN Blood specimen (specimen) 03/21/2017 10:40 AM SALES ATTENDANT Narrative ERICKEZE PFT - 03/22/2017 10:51 AM SALES ATTENDANT Verified by Rhiannon Cain on 03/22/2017. Aime Vu MD LAB - BLOOD ORDERA BLES [facility] PFT LABDE SCAN * (ABNORMAL) CBC with platelets (03/21/2017 10:40 AM SALES ATTENDANT) WBC Count (External) 2.7(L) 4.5 - 11.0 [...] SCAN Blood specimen (specimen) 03/21/2017 10:40 AM SALES ATTENDANT Narrative BREEZE PFT - 03/22/2017 10:51 AM SALES ATTENDANT Verified by Rhiannon Cain on 03/22/2017. Aime [...] documented as of this encounter Care Teams Automatic Embroidery Machine Tender Relationship Specialty Start Date End Date Rubén Boyle MD PCP - General Family Practice 03/08/16 Pamela Blanco PET CARE TECHNICIAN [facility] [address] [place], [place] 0[address]17 Referring Physician 07/13/[address] [facility] [address] [place], [place] 185807 Nephrology 10/03/16 Freddy Craft MD 516 [facility] 2[facility] [place] [address] Assigned Gastroenterology Provider 02/08/20 Abdifatah Van MD [address] [facility] [address] [place] [address] Assigned Nephrology Provider 07/13/20 11/07/23 Nicole Carranza NP 420 [facility] [address] [place] [address] Assigned Heart and Vascular Provider 01/09/22 Andressa Ruiz PA-C 420 [facility] 803 [place] [address] Physician Field Examiner Endocrinology, Diabetes, and Metabolism 03/01/22 Ashlyn Storm RN [facility] 711 [place] [address] Registered Nurse 03/03/22 09/15/22 Rubén Gunter [facility] [address] [place] [address] Assigned MTM Pharmacist 02/27/22 Andressa Ruiz PA-C 420 [facility] 803 [place] [address] Assigned Endocrinology Provider 03/13/22 09/07/23 Suzan Harry MD [address] [place] [address] Nephrology 06/30/23 Yasmeen Powers MD [address] [place] [address] Nephrology 10/24/23 Yasmeen Powers MD [address] [place] [address] Assigned Nephrology Provider 11/08/23 documented as of this encounter
--- OUTSIDE RECORDS SUMMARY | 2024-01-17 16:47 | XMS_ITS | Encounter Summary ---
Author Organization [place] Address [address] [place] [address] Care Team Providers Care Gatehouse Attendant Name Role Phone Rubén Boyle MD Primary Care Provider Pamela Blanco WASTE WATER PLANT OPERATOR Unavailable Pedro Segura MD Unavailable [phone] Freddy Craft MD Unavailable Abdifatah Van MD Unavailable Nicole Carranza WASTE WATER PLANT OPERATOR Unavailable [phone] Andressa Ruiz-C Unavailable [phone] Ashlyn Storm RN Unavailable Rubén Gunter [facility] Unavailable Andressa Ruiz-C Unavailable uSzan Harry MD Unavailable [phone] Yasmeen Powers MD Unavailable [phone] Yasmeen Powers MD Unavailable [phone] Encounter Details Date Type Department Care Team (Late st Contact Info) Description 02/08/2017 External Order Results [facility] 9[address] [place] [address] Social History Tobacco Use Types [...] documented as of this encounter Care Teams Gatehouse Attendant Relationship Specialty Start Date End Date Rubén Boyle MD PCP - General Family Practice 03/08/16 Pamela Blanco WASTE WATER PLANT OPERATOR [facility] [address] [place] [address] Referring Physician 07/13/16 Pedro Segura MD [facility] [address] [place] [address] Nephrology 10/03/16 Freddy Craft MD 516 [facility] [place], [place] [address]295 Assigned Gastroenterology Provider 02/08/20 Abdifatah Van MD 717 [facility] [address] [place], [place] [address]124 Assigned Nephrology Provider 07/13/20 11/07/23 Nicole Carranza NP 420 [facility] 508 [place], [place] [address]85 Assigned Heart and Vascular Provider 01/09/22 Andressa Ruiz PA-C 420 [facility] 803 [place], [place] [address] Physician Embedded Software Engineer Endocrinology, Diabetes, and Metabolism 03/01/22 Ashlyn Storm, RN [facility] 711 [place], [place] 12[address]24[address] Registered Nurse 03/03/22 09/15/22 Rubén Gunter [facility] 909 [place], [place] [address] Assigned MTM Pharmacist 02/27/22 Andressa Ruiz PA-C 420 [facility] 803 [place] [address] Assigned Endocrinology Provider 03/13/22 09/07/23 Suzan Harry MD 420 [place], [place] 94[address] Nephrology 06/30/23 Yasmeen Powers MD 500 [place], [place] [address] Nephrology 10/24/23 Yasmeen Powers MD 500 [place], [place] 962075 Assigned Nephrology Provider 11/08/23 documented as of this encounter
--- OUTSIDE RECORDS SUMMARY | 2024-01-17 16:47 | XMS_ITS | Encounter Summary ---
Author Organization [facility] Address [address] [place] [address] Care Team Providers Care Sausage Cutter Name Role Phone Rubén Boyle MD Primary Care Provider Pamela Blanco RECREATION COORDINATOR Unavailable Pedro Segura MD Unavailable [phone] Freddy Craft MD Unavailable Abdifatah Van MD Unavailable Nicole Carranza RECREATION COORDINATOR Unavailable [phone] Andressa Ruiz-C Unavailable Ashlyn Storm RN Unavailable Rubén Gunter [facility] Unavailable Andressa Ruiz-C Unavailable [phone] Suzan Harry MD Unavailable [phone] Yasmeen Powers MD Unavailable Yasmeen Powers MD Unavailable [phone] Encounter Details Date Type Department Care Team (Late st Contact Info) Description 01/20/2017 External Order Results [facility] 9[address] [place] [address] Social History Tobacco Use Types [...] documented as of this encounter Care Teams Sausage Cutter Relationship Specialty Start Date End Date Rubén Boyle MD PCP - General Family Practice 03/08/16 Pamela Blanco NP [facility] [address] [place] [address] Referring Physician 07/13/16 Pedro Segura MD [facility] [address] [place] [address] Nephrology 10/03/16 Freddy Craft MD 516 [facility] 2A [place] [address] Assigned Gastroenterology Provider 02/08/20 Abdifatah Van MD 717 [facility] [address] [place] [address] Assigned Nephrology Provider 07/13/20 11/07/23 Nicole Carranza NP 420 [facility] 508 [place] [address] Assigned Heart and Vascular Provider 01/09/22 Andressa Ruiz PA-C 420 [facility] 803 [place] [address] Physician Scientist Immunology Endocrinology, Diabetes, and Metabolism 03/01/22 Ashlyn Storm, RN [facility] 711 [place] [address] Registered Nurse 03/03/22 09/15/22 Rubén Gunter [facility] [address] [place] [address] Assigned MTM Pharmacist 02/27/22 Andressa Ruiz PA-C 420 [facility] 803 [place] [address] Assigned Endocrinology Provider 03/13/22 09/07/23 Suzan Harry MD 420 [place] [address] Nephrology 06/30/23 Yasmeen Powers MD 500 [place] [address] Nephrology 10/24/23 Yasmeen Powers MD 500 [place] [address] Assigned Nephrology Provider 11/08/23 documented as of this encounter
--- OUTSIDE RECORDS SUMMARY | 2024-01-17 16:47 | XMS_ITS | Encounter Summary ---
Author Organization [facility] Address [address] [place] [address] Care Team Providers Care Experience Specialist Name Role Phone Rubén Boyle MD Primary Care Provider Pamela Blanco CEPHALOMETRIC TRACER Unavailable [phone] Pedro Segura MD Unavailable [phone] Freddy Craft MD Unavailable Abdifatah Van MD Unavailable Nicole Carranza CEPHALOMETRIC TRACER Unavailable [phone] Andressa Ruiz-C Unavailable Ashlyn Storm RN Unavailable [phone] Rubén Gunter [facility] Unavailable Andressa Ruiz-C Unavailable Suzan Harry MD Unavailable [phone] Yasmeen Powers MD Unavailable [phone] Yasmeen Powers MD Unavailable [phone] Encounter Details Date Type Department Care Team (Latest Contact Info) Description 03/09/2017 External Order Results [facility] [address] [place] [address] Long-term use of immunosuppressant medication; [...] Diagnosis Comments PHOSPHORUS Routine 03/07/2017 8:25 AM FILLER WIPER Long-term use of immunosuppressant medication Liver replaced by transplant (H) MAGNESIUM Routine 03/07/2017 8:25 AM FILLER WIPER Long-term use of immunosuppressant medication Liver replaced by transplant (H) HEPATIC FUNCTION PANEL Routine 03/07/2017 8:25 AM FILLER WIPER Long-term use of immunosuppressant medication Liver replaced by transplant (H) BASIC METABOLIC PANEL Routine 03/07/2017 8:25 AM FILLER WIPER Long-term use of immunosuppressant medication Liver replaced by transplant (H) CBC WITH PLATELETS Routine 03/07/2017 8: 25 AM FILLER WIPER Long-term use of immunosuppressant medication Liver replaced by transplant (H) documented in this encounter Results * Hepatic panel (03/07/2017 8:25 AM FILLER WIPER) Albumin (External) 3.9 3.2 - 4.6 g/dL [...] SCAN Blood specimen (specimen) 03/07/2017 8:25 AM FILLER WIPER Narrative BREEZE PFT - 03/09/2017 11:44 AM FILLER WIPER Verified by Rhiannon Cain on 03/09/2017. Aime Vu MD LAB - BLOOD ORDERA BLES Performing Organization Address [facility] Co de Phone Number BREEZE PFT LABDE SCAN * (ABNORMAL) Magnesium (03/07/2017 8:25 AM FILLER WIPER) Magnesium (External) 1.3(L) 1.6 - 2.6 mg/dL LABDE SCAN Blood specimen (specimen) 03/07/2017 8:25 AM FILLER WIPER Narrative BREEZE PFT - 03/09/2017 11:44 AM FILLER WIPER Verified by Rhiannon Cain on 03/09/2017. Aime Vu MD LAB - BLOOD ORDERA BLEMarkel Performing Organization Address [facility] Co de Phone Number BREEZE PFT LABDE SCAN * Phosphorus (03/07/2017 8:25 AM FILLER WIPER) Phosphorus (External) 3.5 2.3 - 4.7 mg/dL LABDE SCAN Blood specimen (specimen) 03/07/2017 8:25 AM FILLER WIPER Narrative BREEZE PFT - 03/09/2017 11:44 AM FILLER WIPER Verified by Rhiannon Cain on 03/09/2017. Aime Vu MD LAB - BLOOD ORDERA BLEMarkel Performing Organization Address [facility] Co de Phone Number BREEZE PFT LABDE SCAN * (ABNORMAL) Basic metabolic panel (03/07/2017 8:25 AM FILLER WIPER) Sodium (External) 140 135 - 145 mmol/L [...] SCAN Blood specimen (specimen) 03/07/2017 8:25 AM FILLER WIPER Narrative SAMANTHA PFT - 03/09/2017 11:44 AM FILLER WIPER Verified by Rhiannon Cain on 03/09/2017. Aime Vu MD LAB - BLOOD ORDERA BLES SAMANTHA PFT LABDE SCAN * (ABNORMAL) CBC with platelets (03/07/2017 8:25 AM FILLER WIPER) WBC Count (External) 4.9 4.5 - 11.0 [...] SCAN Blood specimen (specimen) 03/07/2017 8:25 AM FILLER WIPER Narrative AMNAE PFT - 03/09/2017 11:44 AM FILLER WIPER Verified by Rhiannon Cain on 03/09/2017. Aime [...] documented as of this encounter Care Teams Experience Specialist Relationship Specialty Start Date End Date Rubén Boyle MD PCP - General Family Practice 03/08/16 Pamela Blanco NP [facility] [address] [place], [place] 2[address] Referring Physician 07/13/16 Pedro Segura MD [facility] [address] [place], [place] [address] Nephrology 10/03/16 Freddy Craft MD [address] [facility] [address] [place], [place] [address] Assigned Gastroenterology Provider 02/08/20 Abdifatah Van MD [address] [facility] [address] [place] [address] Assigned Nephrology Provider 07/13/20 11/07/23 Nicole Carranza NP 420 [facility] [address] [place] [address] Assigned Heart and Vascular Provider 01/09/22 Andressa Ruiz PA-C [address] [address] Physician Maintenance Dispatcher Endocrinology, Diabetes, and Metabolism 03/01/22 Ashlyn Storm, RN [facility] 711 [place] [address] Registered Nurse 03/03/22 09/15/22 Rubén Gunter [facility] [address] [place] [address] Assigned MTM Pharmacist 02/27/22 Andressa Ruiz PA-C [address] [address] Assigned Endocrinology Provider 03/13/22 09/07/23 Suzan Harry MD [address] [place] [address] Nephrology 06/30/23 Yasmeen Powers MD [address] [place] [address] Nephrology 10/24/23 Yasmeen Powers MD [address] [place] [address] Assigned Nephrology Provider 11/08/23 documented as of this encounter
--- OUTSIDE RECORDS SUMMARY | 2024-01-17 16:47 | XMS_ITS | Encounter Summary ---
Author Organization [facility] Address [address] [place] [address] Care Team Providers Care Culinary Director Name Role Phone Rubén Boyle MD Primary Care Provider [phone] Pamela Blanco SURGICAL TERRITORY MANAGER Unavailable [phone] Pedro Segura MD Unavailable Freddy Craft MD Unavailable Abdifatah Van MD Unavailable Nicole Carranza SURGICAL TERRITORY MANAGER Unavailable [phone] Andressa Ruiz-C Unavailable Ashlyn Storm RN Unavailable Rubén Gunter 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); 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 transplant; terminal worker use of drug Social History Tobacco [...] TANDEM MASS SPECTROMETRY Routine 04/05/2017 8:00 AM AS400 PROGRAMMER Liver replaced by transplant (H) 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 transplant USP use of drug documented in this encounter Results * Tacrolimus level (04/05/2017 8:00 AM AS400 PROGRAMMER) Tacrolimus(FK-5 06) (External) 13.0 ng/mL LABDE SCAN Tacrolimus Last Dose (External) Not given LABDE SCAN Blood specimen (specimen) 04/05/2017 8:00 AM AS400 PROGRAMMER Narrative SAMANTHA PFT - 04/07/2017 3:48 PM AS400 PROGRAMMER Verified by Cruzito Marlow on 04/07/2017. 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/16 urine, 07/10/16 rectal swab 06/21/2016 06/21/2016 documented as of this encounter Care Teams Culinary Director Relationship Specialty Start Date End Date Rubén Boyle MD PCP - General Family Practice 03/08/16 Pamela Blanco SURGICAL TERRITORY MANAGER [facility] [address] [place] [address] Referring Physician 07/13/16 Pedro Segura MD [facility] [address] [place] [address] Nephrology 10/03/16 Freddy Craft MD 516 [facility] 2[facility] [place], [place] [address] Assigned Gastroenterology Provider 02/08/20 Abdifatah Van MD 717 [facility] [address] [place] [address] Assigned Nephrology Provider 07/13/20 11/07/23 Nicole Carranza NP 420 [facility] 508 [place], [place] [address] Assigned Heart and Vascular Provider 01/09/22 Andressa Ruiz PA-C 420 [facility] 803 [place], [place] [address] Physician Rubber Gasket Inspector Trimmer Endocrinology, Diabetes, and Metabolism 03/01/22 Ashlyn Storm, RN [facility] 711 [place] [address] Registered Nurse 03/03/22 09/15/22 Rubén Gunter [facility] 909 [facility] [place] [address] Assigned MTM Pharmacist 02/27/22 Andressa Ruiz PA-C 420 [facility] 803 [place] [address] Assigned Endocrinology Provider 03/13/22 09/07/23 Suzan Harry MD 420 [place] [address] Nephrology 06/30/23 Yasmeen Powers MD 500 [place] [address] Nephrology 10/24/23 Yasmeen Powers MD 500 [place] [address] Assigned Nephrology Provider 11/08/23 documented as of this encounter
--- OUTSIDE RECORDS SUMMARY | 2024-01-17 16:47 | XMS_ITS | Encounter Summary ---
Author Organization [facility] Address [address] [place] [address] Care Team Providers Care Wig Maker Name Role Phone Rubén Boyle MD Primary Care Provider Pamela Blanco DEBONING TEAM LEADER Unavailable [phone] Pedro Segura MD Unavailable Freddy Craft MD Unavailable [phone] Abdifatah Van MD Unavailable Nicole Carranza DEBONING TEAM LEADER Unavailable [phone] Andressa Ruiz-C Unavailable [phone] Ashlyn Storm RN Unavailable Rubén Gunter [facility] Unavailable Andressa Ruiz-C Unavailable Suzan Harry MD Unavailable [phone] Yasmeen Powers MD Unavailable [phone] Yasmeen Powers MD Unavailable [phone] Encounter Details Date Type Department Care Team (Late st Contact Info) Description 01/24/2017 External Order Results [facility] [address] [place] [address] Social History Tobacco Use Types [...] documented as of this encounter Care Teams Wig Maker Relationship Specialty Start Date End Date Rubén Boyle MD PCP - General Family Practice 03/08/16 Pamela Blanco, DEBONING TEAM LEADER [facility] [address] [place] [address] Referring Physician 07/13/16 Pedro Segura MD [facility] [address] [place] [address] Nephrology 10/03/16 Freddy Craft MD 516 [facility] [address] [place], [place] [address] Assigned Gastroenterology Provider 02/08/20 Abdifatah Van MD 717 [facility] [address] [place], [place] [address] Assigned Nephrology Provider 07/13/20 11/07/23 Nicole Carranza, GER[place] 420 [facility] 508 [place], [place] [address]415 Assigned Heart and Vascular Provider 01/09/22 Andressa Ruiz PA-C 420 [facility] 803 [place], [place] [address] Physician Twisting Press Operator Endocrinology, Diabetes, and Metabolism 03/01/22 Ashlyn Storm, RN [facility] 711 [place] [address] Registered Nurse 03/03/22 09/15/22 Rubén Gunter [facility] [address] [place] [address] Assigned MTM Pharmacist 02/27/22 Andressa Ruiz PA-C 420 [facility] 803 [place] [address] Assigned Endocrinology Provider 03/13/22 09/07/23 Suzan Harry MD 420 [place] [address] Nephrology 06/30/23 Yasmeen Powers MD 500 [place] [address] Nephrology 10/24/23 Yasmeen Powers MD 500 [place] [address] Assigned Nephrology Provider 11/08/23 documented as of this encounter
--- OUTSIDE RECORDS SUMMARY | 2024-01-17 16:47 | XMS_ITS | Encounter Summary ---
Author Organization [facility] Address [address] [place] [address] Care Team Providers Care Evs Manager Name Role Phone Rubén Boyle MD Primary Care Provider Pamela Blanco WHEEL CUTTER Unavailable Pedro Segura MD Unavailable Freddy Craft MD Unavailable [phone] Abdifatah Van MD Unavailable Nicole Carranza WHEEL CUTTER Unavailable [phone] Andressa Ruiz-C Unavailable Ashlyn Storm RN Unavailable Rubén Gunter [facility] Unavailable Andressa Ruiz-C Unavailable [phone] Suzan Harry MD Unavailable [phone] Yasmeen Powers MD Unavailable Yasmeen Powers MD Unavailable [phone] Encounter Details Date Type Department Care Team (Latest Contact Info) Description 04/06/2017 External Order Results [facility] [address] [place] [address] Long-term use of immunosuppressant medication; [...] Diagnosis Comments PHOSPHORUS Routine 04/05/2017 8:00 AM COMPACTOR DRIVER Long-term use of immunosuppressant medication Liver replaced by transplant (H) MAGNESIUM Routine 04/05/2017 8:00 AM COMPACTOR DRIVER Long-term use of immunosuppressant medication Liver replaced by transplant (H) HEPATIC FUNCTION PANEL Routine 04/05/2017 8:00 AM COMPACTOR DRIVER Long-term use of immunosuppressant medication Liver replaced by transplant (H) DIFFERENTIAL Routine 04/05/2017 8:00 AM COMPACTOR DRIVER BASIC METABOLIC PANEL Routine 04/05/2017 8:00 AM COMPACTOR DRIVER Long-term use of immunosuppressant medication Liver replaced by transplant (H) CBC WITH PLATELETS Routine 04/05/2017 8: 00 AM COMPACTOR DRIVER Long-term use of immunosuppressant medication Liver replaced by transplant (H) documented in this encounter Results * (ABNORMAL) WBC Differential (04/05/2017 8:00 AM COMPACTOR DRIVER) % Neutrophils (External) 48.9 42.0 - 72.0 [...] SCAN Blood specimen (specimen) 04/05/2017 8:00 AM COMPACTOR DRIVER Narrative AMNAE PFT - 04/06/2017 8:24 AM COMPACTOR DRIVER Verified by Cruzito Marlow on 04/06/2017. Patient Reported LAB - BLOOD ORDERABL ES SAMANTHA PFT LABDE SCAN * (ABNORMAL) CBC with platelets (04/05/2017 8:00 AM COMPACTOR DRIVER) WBC Count (External) 2.9(L) 4.5 - 11.0 [...] SCAN Blood specimen (specimen) 04/05/2017 8:00 AM COMPACTOR DRIVER Narrative SAMANTHA PFT - 04/06/2017 8:24 AM COMPACTOR DRIVER Verified by Cruzito Marlow on 04/06/2017. Aime Vu MD LAB - BLOOD ORDERA BLES Performing Organization Address [facility] Co de Phone Number BREEZE PFT LABDE SCAN * Phosphorus (04/05/2017 8:00 AM COMPACTOR DRIVER) Phosphorus (External) 3.0 2.3 - 4.7 mg/dL LABDE SCAN Blood specimen (specimen) 04/05/2017 8:00 AM COMPACTOR DRIVER Narrative BREEZE PFT - 04/06/2017 8:24 AM COMPACTOR DRIVER Verified by Cruzito Marlow on 04/06/2017. Aime Vu MD LAB - BLOOD ORDERA BLES Performing Organization Address [facility] de Phone Number BREEZE PFT LABDE SCAN * (ABNORMAL) Hepatic panel (04/05/2017 8:00 AM COMPACTOR DRIVER) Albumin (External) 4.2 3.2 - 4.6 g/dL [...] SCAN Blood specimen (specimen) 04/05/2017 8:00 AM COMPACTOR DRIVER Narrative BREEZE PFT - 04/06/2017 8:24 AM COMPACTOR DRIVER Verified by Cruzito Marlow on 04/06/2017. Aime Vu MD LAB - BLOOD ORDERA BLES Performing Organization Address [facility] de Phone Number BREEZE PFT LABDE SCAN * (ABNORMAL) Basic metabolic panel (04/05/2017 8:00 AM COMPACTOR DRIVER) Sodium (External) 138 135 - 145 mmol/L [...] SCAN Blood specimen (specimen) 04/05/2017 8:00 AM COMPACTOR DRIVER Narrative BREEZE PFT - 04/06/2017 8:24 AM COMPACTOR DRIVER Verified by Cruzito Marlow on 04/06/2017. Aime Vu MD LAB - BLOOD ORDERA BLES BREEZE PFT LABDE SCAN * (ABNORMAL) Magnesium (04/05/2017 8:00 AM COMPACTOR DRIVER) Magnesium (External) 1.0(LL) 1.6 - 2.6 mg/dL LABDE SCAN Blood specimen (specimen) 04/05/2017 8:00 AM COMPACTOR DRIVER Narrative BREEZE PFT - 04/06/2017 8:08 AM COMPACTOR DRIVER Verified by Cruzito Marlow on 04/06/2017. Aime [...] documented as of this encounter Care Teams Evs Manager Relationship Specialty Start Date End Date Rubén Boyle MD PCP - General Family Practice 03/08/16 Pamela Blanco, WHEEL CUTTER [facility] [address] [place] [address] Referring Physician 07/13/16 Pedro Segura MD [facility] [address] [place] [address] Nephrology 10/03/16 Freddy Craft MD 516 [facility] [address] [place], [place] [address] Assigned Gastroenterology Provider 02/08/20 Abdifatah Van MD [address] [place], [place] [address] Assigned Nephrology Provider 07/13/20 11/07/23 Nicole Carranza NP [address] [place], [place] [address] Assigned Heart and Vascular Provider 01/09/22 Andressa Ruiz PA-C 420 [facility] [address] [place], [place] [address] Physician Active Directory Administrator Endocrinology, Diabetes, and Metabolism 03/01/22 Ashlyn Storm, RN [facility] 711 [place] [address] Registered Nurse 03/03/22 09/15/22 Rubén Gunter [facility] 909 [place] [address] Assigned MTM Pharmacist 02/27/22 Andressa Ruiz PA-C 420 [facility] 803 [place] [address] Assigned Endocrinology Provider 03/13/22 09/07/23 Suzan Harry MD 420 [place] [address] Nephrology 06/30/23 Yasmeen Powers MD 500 [place] [address] Nephrology 10/24/23 Yasmeen Powers MD 500 [place] [address] Assigned Nephrology Provider 11/08/23 documented as of this encounter
--- OUTSIDE RECORDS SUMMARY | 2024-01-17 16:47 | XMS_ITS | Encounter Summary ---
Author Organization [place] Address [address] [place] [address] Care Team Providers Care Manager Bench Name Role Phone Rubén Boyle MD Primary Care Provider Pamela Blanco BEHAVIORAL SCIENCES INSTRUCTOR Unavailable Pedro Segura MD Unavailable Freddy Craft MD Unavailable Abdifatah Van MD Unavailable Nicole Carranza BEHAVIORAL SCIENCES INSTRUCTOR Unavailable [phone] Andressa Ruiz-C Unavailable Ashlyn Storm RN Unavailable Rubén Gunter [facility] Unavailable Andressa Ruiz-C Unavailable Suzan Harry MD Unavailable [phone] Yasmeen Powers MD Unavailable [phone] Yasmeen Powers MD Unavailable [phone] Encounter Details Date Type Department Care Team (Latest Contact Info) Description 03/24/2017 External Order Results [facility] [address] [place] [address] Long-term use of immunosuppressant medication; [...] TANDEM MASS SPECTROMETRY Routine 03/21/2017 10:40 AM THREAT ANALYST Long-term use of immunosuppressant medication Liver replaced by transplant (H) documented in this encounter Results * (ABNORMAL) Tacrolimus level (03/21/2017 10:40 AM THREAT ANALYST) Tacrolimus(FK-5 06) (External) 21.3(H) 5 - 8 ng/mL LABDE SCAN Tacrolimus Last Dose (External) 03/20/2017 at 2000 LABDE SCAN Blood specimen (specimen) 03/21/2017 10:40 AM THREAT ANALYST Narrative SAMANTHA PFT - 03/24/2017 12:03 PM THREAT ANALYST Verified by Rhiannon Cain on 03/24/2017. Aime [...] as of this encounter Care Teams Manager Bench Relationship Specialty Start Date End Date Rubén Boyle MD PCP - General Family Practice 03/08/16 Pamela Blanco NP [facility] [address] [place] [address] Referring Physician 07/13/16 Pedro Segura MD [facility] [address] [place] [address] Nephrology 10/03/16 Freddy Craft MD 516 [facility] [address] [place], [place] [address] Assigned Gastroenterology Provider 02/08/20 Abdifatah Van MD 717 [facility] [address] [place], [place] [address] Assigned Nephrology Provider 07/13/20 11/07/23 Nicole Carranza, GERMANIA 420 [facility] [address] [place], [place] [address] Assigned Heart and Vascular Provider 01/09/22 Andressa Ruiz PA-C 420 [facility] 803 [place], [place] [address] Physician Tomato Pulper Operator Endocrinology, Diabetes, and Metabolism 03/01/22 Ashlyn Storm, RN [facility] 711 [place], [place] [address] Registered Nurse 03/03/22 09/15/22 Rubén Gunter [facility] 909 [place], [place] 154815 Assigned MTM Pharmacist 02/27/22 Andressa Ruiz PA-C 420 [facility] [place], [place] [address] Assigned Endocrinology Provider 03/13/22 09/07/23 Suzan Harry MD 420 [place], [place] [address] Nephrology 06/30/23 Yasmeen Powers MD 500 [place] [address] Nephrology 10/24/23 Yasmeen Powers MD 500 [place] [address] Assigned Nephrology Provider 11/08/23 documented as of this encounter
--- OUTSIDE RECORDS SUMMARY | 2024-01-17 16:47 | XMS_ITS | Encounter Summary ---
Author Organization [facility] Address [address] [place] [address] Care Team Providers Care Account Advisor Name Role Phone Rubén Boyle MD Primary Care Provider Pamela Blanco PHOTO SPECIALIST Unavailable [phone] Pedro Segura MD Unavailable Freddy Craft MD Unavailable Abdifatah Van MD Unavailable Nicole Carranza PHOTO SPECIALIST Unavailable [phone] Andressa Ruiz-C Unavailable Ashlyn Storm RN Unavailable Rubén Gunter [facility] Unavailable Andressa Ruiz-C Unavailable Suzan Harry MD Unavailable [phone] Yasmeen Powers MD Unavailable Yasmeen Powers MD Unavailable [phone] Encounter Details Date Type Department Care Team (Late st Contact Info) Description 01/26/2017 External Order Results [facility] [address] [place] [address] Social History Tobacco Use Types [...] as of this encounter Care Teams Account Advisor Relationship Specialty Start Date End Date Rubén Boyle MD PCP - General Family Practice 03/08/[address] [facility] [address] [place], [place] [address] Referring Physician 07/13/[address] [facility] [address] [place], [place] [address] Nephrology 10/03/16 Freddy Craft MD 516 [facility] [address] [place], [place] [address] Assigned Gastroenterology Provider 02/08/20 Abdifatah Van MD 717 [facility] [address] [place], [place] [address]794 Assigned Nephrology Provider 07/13/20 11/07/23 Nicole Carranza, GERMANIA 420 [facility] 508 [place], [place] [address] Assigned Heart and Vascular Provider 01/09/22 Andressa Ruiz PA-C 420 [facility] 803 [place], [place] [address] Physician Heel Finisher Endocrinology, Diabetes, and Metabolism 03/01/22 Ashlyn Storm RN [facility] 711 [place] [address] Registered Nurse 03/03/22 09/15/22 Rubén Gunter [facility] 909 [facility] [address] [place], [place] 8[address] Assigned MTM Pharmacist 02/27/22 Andressa Ruiz PA-C 420 [facility] 803 [place], [place] [address] Assigned Endocrinology Provider 03/13/22 09/07/23 Suzan Harry MD 420 [place] [address] Nephrology 06/30/23 Yasmeen Powers MD 500 [place] [address] Nephrology 10/24/23 Yasmeen Powers MD 500 [place] [address] Assigned Nephrology Provider 11/08/23 documented as of this encounter
--- OUTSIDE RECORDS SUMMARY | 2024-01-17 16:47 | XMS_ITS | Encounter Summary ---
Author Organization [place] Address [address] [place] [address] Care Team Providers Care Sr. Vendor Management Associate Name Role Phone Rubén Boyle MD Primary Care Provider Pamela Blanco INFORMATION SERVICES TECH Unavailable Pedro Segura MD Unavailable [phone] Freddy Craft MD Unavailable Abdifatah Van MD Unavailable Nicole Carranza INFORMATION SERVICES TECH Unavailable [phone] Andressa Ruiz-C Unavailable Ashlyn Storm RN Unavailable Rubén Gunter [facility] Unavailable Andressa Ruiz-C Unavailable Suzan Harry MD Unavailable [phone] Yasmeen Powers MD Unavailable Yasmeen Powers MD Unavailable [phone] Encounter Details Date Type Department Care Team (Late st Contact Info) Description 03/23/2017 External Order Results [facility] 909 [place] [address] Social History Tobacco Use Types [...] Comments HEMOGLOBIN A1C Routine 03/21/2017 10:40 AM LABORER WOOD PRESERVING PLANT documented in this encounter Results * Hemoglobin A1c (03/21/2017 10:40 AM LABORER [employer]) Hemoglobin A1C (External) 5.2 <=6.4 % LABDE SCAN Blood specimen (specimen) 03/21/2017 10:40 AM LABORER [employer] Narrative SAMANTHA PFT - 03/23/2017 11:52 AM LABORER [employer] Verified by Rhiannon Cain on 03/23/2017. 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 Vendor Management Associate Relationship Specialty Start Date End Date Rubén Boyle MD PCP - General Family Practice 03/08/16 Pamela Blanco NP [facility] [address] [place] [address] Referring Physician 07/13/16 Pedro Segura MD [facility] [address] [place] [address] Nephrology 10/03/16 Freddy Craft MD 516 [facility] 2A [place] [address] Assigned Gastroenterology Provider 02/08/20 Abdifatah Van MD 717 [facility] [address] [place] [address] Assigned Nephrology Provider 07/13/20 11/07/23 Nicole Carranza NP 420 [facility] 508 [place] [address] Assigned Heart and Vascular Provider 01/09/22 Andressa Ruiz PA-C 420 [facility] 803 [place] [address] Physician Wad Compressor Operator Adjuster Endocrinology, Diabetes, and Metabolism 03/01/22 Ashlyn Storm RN [facility] 711 [place] [address] Registered Nurse 03/03/22 09/15/22 Rubén Gunter [facility] [address] [place] [address] Assigned MTM Pharmacist 02/27/22 Andressa Ruiz PA-C [address] [address] Assigned Endocrinology Provider 03/13/22 09/07/23 Suzan Harry MD 420 [place] [address] Nephrology 06/30/23 Yasmeen Powers MD 500 [place], [place] 801545 Nephrology 10/24/23 Yasmeen Powers MD 500 [place], [place] 216085 Assigned Nephrology Provider 11/08/23 documented as of this encounter
--- OUTSIDE RECORDS SUMMARY | 2024-01-17 16:48 | XMS_ITS | Encounter Summary ---
Author Organization [place] Address [address] [place] [address] Care Team Providers Care Fruit Sprayer Name Role Phone Rubén Boyle MD Primary Care Provider Pamela Blanco IMMIGRATION COORDINATOR Unavailable Pedro Segura MD Unavailable Freddy Craft MD Unavailable Abdifatah Van MD Unavailable Nicole Carranza IMMIGRATION COORDINATOR Unavailable [phone] Andressa Ruiz-C Unavailable Ashlyn Storm RN Unavailable [phone] Rubén Gunter [facility] Unavailable Andressa Ruiz-C Unavailable Suzan Harry MD Unavailable [phone] Yasmeen Powers MD Unavailable [phone] Yasmeen Powers MD Unavailable [phone] Encounter Details Date Type Department Care Team (Late st Contact Info) Description 11/03/2016 External Order Results [facility] 909 [place] [address] Social [...] as of this encounter Care Teams Fruit Sprayer Relationship Specialty Start Date End Date Rubén Boyle MD PCP - General Family Practice 03/08/16 Pamela Blanco IMMIGRATION COORDINATOR [facility] [address] [place] [address] Referring Physician 07/13/16 Pedro Segura MD [facility] [address] [place], [place] 697927 Nephrology 10/03/16 Freddy Craft MD [address] [facility] 2A [place], [place] 2296[address] Assigned Gastroenterology Provider 02/08/20 Abdifatah Van MD 717 [facility] [address] [place], [place] [address] Assigned Nephrology Provider 07/13/20 11/07/23 Nicole Carranza NP 420 [facility] 508 [place], [place] 037145 Assigned Heart and Vascular Provider 01/09/22 Andressa Ruiz PA-C 420 [facility] 803 [place], [place] [address] Physician Textile Machinery Instructor Endocrinology, Diabetes, and Metabolism 03/01/22 Ashlyn Storm, RN [facility] 711 [place] [address] Registered Nurse 03/03/22 09/15/22 Rubén Gunter [facility] 909 [place], [place] 857185 Assigned MTM Pharmacist 02/27/22 Andressa Ruiz PA-C 420 [facility] 803 [place] [address] Assigned Endocrinology Provider 03/13/22 09/07/23 Suzan Harry MD 420 [place], [place] 9[address] Nephrology 06/30/23 Yasmeen Powers MD 500 [place], [place] [address] Nephrology 10/24/23 Yasmeen Powers MD 500 [place], [place] 592625 Assigned Nephrology Provider 11/08/23 documented as of this encounter
--- OUTSIDE RECORDS SUMMARY | 2024-01-17 16:48 | XMS_ITS | Encounter Summary ---
Author Organization [place] Address [address] [place] [address] Care Team Providers Care Administrative Underwriter Name Role Phone Rubén Boyle MD Primary Care Provider Pamela Blanco RN ANESTHETIST Unavailable Pedro Segura MD Unavailable [phone] Freddy Craft MD Unavailable Abdifatah Van MD Unavailable Nicole Carranza RN ANESTHETIST Unavailable Andressa Ruiz-C Unavailable Ashlyn Storm RN Unavailable Rubén Gunter [facility] Unavailable Andressa Ruiz-C Unavailable [phone] Suzan Harry MD Unavailable [phone] Yasmeen Powers MD Unavailable [phone] Yasmeen Powers MD Unavailable [phone] Encounter Details Date Type Department Care Team (Late st Contact Info) Description 12/30/2016 External Order Results [facility] 909 [place] [address] Social History Tobacco Use Types [...] documented as of this encounter Care Teams Administrative Underwriter Relationship Specialty Start Date End Date Rubén Boyle MD PCP - General Family Practice 03/08/16 Pamela Blanco RN ANESTHETIST [facility] [address] [place] [address] Referring Physician 07/13/16 Pedro Segura MD [facility] [address] [place], [place] 602[address] Nephrology 10/03/16 Freddy Craft MD 516 [facility] 2A [place], [place] 8[address]85 Assigned Gastroenterology Provider 02/08/20 Abdifatah Van MD 717 [facility] [address] [place] [address] Assigned Nephrology Provider 07/13/20 11/07/23 Nicole Carranza NP 420 [facility] 508 [place], [place] [address]295 Assigned Heart and Vascular Provider 01/09/22 Andressa Ruiz PA-C 420 [facility] 803 [place], [place] 8[address]155 Physician Field Research Associate Endocrinology, Diabetes, and Metabolism 03/01/22 Ashlyn Storm, RN [facility] 711 [facility] [place], [place] 264564 Registered Nurse 03/03/22 09/15/22 Rubén Gunter [facility] 067 [place] [address] Assigned MTM Pharmacist 02/27/22 Andressa Ruiz PA-C 420 [facility] 803 [place] [address] Assigned Endocrinology Provider 03/13/22 09/07/23 Suzan Harry MD 420 [place] [address] Nephrology 06/30/23 Yasmeen Powers MD 500 [place] [address] Nephrology 10/24/23 Yasmeen Powers MD 500 [place] [address] Assigned Nephrology Provider 11/08/23 documented as of this encounter
--- OUTSIDE RECORDS SUMMARY | 2024-01-17 16:48 | XMS_ITS | Encounter Summary ---
Author Organization [place] Address [address] [place] [address] Care Team Providers Care Paranormal Investigator Name Role Phone Rubén Boyle MD Primary Care Provider Pamela Blanco CLAY MAKER Unavailable Pedro Segura MD Unavailable Freddy Craft MD Unavailable Abdifatah Van MD Unavailable Nicole Carranza CLAY MAKER Unavailable [phone] Andressa Ruiz-C Unavailable Ashlyn Storm RN Unavailable [phone] Rubén Gunter [facility] Unavailable Andressa Ruiz-C Unavailable Suzan Harry MD Unavailable [phone] Yasmeen Powers MD Unavailable [phone] Yasmeen Powers MD Unavailable [phone] Encounter Details Date Type Department Care Team (Late st Contact Info) Description 11/09/2016 External Order Results [facility] 909 [place] [address] Social History Tobacco Use Types [...] 11/15/2016 8:30 AM CDT Verified by Cruzito Marlwo on 11/09/2016. Verified by Cruzito Marlow on 11/10/2016. Verified by Rhiannon Cain on 11/15/2016. 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, 07/10/16 rectal swab 06/21/2016 06/21/2016 documented as of this encounter Care Teams Paranormal Investigator Relationship Specialty Start Date End Date Rubén Boyle MD PCP - General Family Practice 03/08/16 Pamela Blanco, CLAY MAKER [facility] [address] [place] [address] Referring Physician 07/13/16 Pedro Segura MD [facility] [address] [place], [place] 982047 Nephrology 10/03/16 Freddy Craft MD 516 [facility] 2A [place], [place] 303855 Assigned Gastroenterology Provider 02/08/20 Abdifatah Van MD 717 [facility] [address] [place], [place] 0[address]24 Assigned Nephrology Provider 07/13/20 11/07/23 Nicole Carranza NP 420 [facility] 508 [place], [place] [address] Assigned Heart and Vascular Provider 01/09/22 Andressa Ruiz PA-C 420 [facility] 803 [place], [place] [address] Physician Food Safety Coordinator Endocrinology, Diabetes, and Metabolism 03/01/22 Ashlyn Storm, RN [facility] 711 [place], [place] 327944 Registered Nurse 03/03/22 09/15/22 Rubén Gunter [facility] 909 [place] [address] Assigned [place] Pharmacist 02/27/22 Andressa Ruiz PA-C 420 [facility] 803 [place], [place] 311465 Assigned Endocrinology Provider 03/13/22 09/07/23 Suzan Harry MD 420 [place], [place] 178255 Nephrology 06/30/23 Yasmeen Powers MD 500 [place] [address] Nephrology 10/24/23 Yasmeen Powers MD 500 [place] [address] Assigned Nephrology Provider 11/08/23 documented as of this encounter
--- OUTSIDE RECORDS SUMMARY | 2024-01-17 16:48 | XMS_ITS | Encounter Summary ---
Author Organization [place] Address [address] [place] [address] Care Team Providers Care Solderer Torch Name Role Phone Rubén Boyle MD Primary Care Provider Pamela Blanco HOT TAMALE WORKER Unavailable [phone] Pedro Segura MD Unavailable Freddy Craft MD Unavailable Abdifatah Van MD Unavailable Nicole Carranza HOT TAMALE WORKER Unavailable [phone] Andressa Ruiz-C Unavailable Ashlyn Storm RN Unavailable [phone] Rubén Gunter [facility] Unavailable Andressa Ruiz-C Unavailable Suzan Harry MD Unavailable [phone] Yasmeen Powers MD Unavailable [phone] Yasmeen Powers MD Unavailable [phone] Encounter Details Date Type Department Care Team (Late st Contact Info) Description 01/10/2017 External Order Results [facility] 909 [place] [address] Social History Tobacco Use Types [...] documented as of this encounter Care Teams Solderer Torch Relationship Specialty Start Date End Date Rubén Boyle MD PCP - General Family Practice 03/08/16 Pamela Blanco HOT TAMALE WORKER [facility] [address] [place] [address] Referring Physician 07/13/16 Pedro Segura MD [facility] [address] [place] [address] Nephrology 10/03/16 Freddy Craft MD 516 [facility] 2A [place], [place] [address]255 Assigned Gastroenterology Provider 02/08/20 Abdifatah Van MD 717 [facility] [address] [place], [place] 100[address] Assigned Nephrology Provider 07/13/20 11/07/23 Nicole Carranza, GER[place] 420 [facility] 508 [place], [place] 112195 Assigned Heart and Vascular Provider 01/09/22 Andressa Ruiz PA-C 420 [facility] 803 [place], [place] 47[address] Physician Computer Engineering Technologist Endocrinology, Diabetes, and Metabolism 03/01/22 Ashlyn Storm, RN [facility] 711 [place], [place] 339464 Registered Nurse 03/03/22 09/15/22 Rubén Gunter RPH 909 [facility] SE [place], [place] [address]995 Assigned MTM Pharmacist 02/27/22 Andressa Ruiz PA-C 420 [facility] 803 [place] [address] Assigned Endocrinology Provider 03/13/22 09/07/23 Suzan Harry MD 420 [place] [address] Nephrology 06/30/23 Yasmeen Powers MD 500 [place] [address] Nephrology 10/24/23 Yasmeen Powers MD 500 [place] [address] Assigned Nephrology Provider 11/08/23 documented as of this encounter
--- OUTSIDE RECORDS SUMMARY | 2024-01-17 16:48 | XMS_ITS | Encounter Summary ---
Author Organization [place] Address [address] [place] [address] Care Team Providers Care Can Runner Name Role Phone Rubén Boyle MD Primary Care Provider Pamela Blanco WOOL GROWER Unavailable Pedro Segura MD Unavailable Freddy Craft MD Unavailable Abdifatah Van MD Unavailable Nicole Carranza WOOL GROWER Unavailable [phone] Andressa Ruiz-C Unavailable [phone] Ashlyn Storm RN Unavailable [phone] Rubén Gunter [facility] Unavailable Andressa Ruiz-C Unavailable [phone] Suzan Harry MD Unavailable [phone] Yasmeen Powers MD Unavailable Yasmeen Powers MD Unavailable [phone] Encounter Details Date Type Department Care Team (Late st Contact Info) Description 11/23/2016 External Order Results [facility] 909 [place] [address] Social History Tobacco Use Types [...] documented as of this encounter Care Teams Can Runner Relationship Specialty Start Date End Date Rubén Boyle MD PCP - General Family Practice 03/08/16 Pamela Blanco NP [facility] [address] [place] [address] Referring Physician 07/13/16 Pedro Segura MD [facility] [address] [place] [address] Nephrology 10/03/16 Freddy Craft MD 516 [facility] 2A [place], [place] [address] Assigned Gastroenterology Provider 02/08/20 Abdifatah Van MD 717 [facility] [address] [place] [address] Assigned Nephrology Provider 07/13/20 11/07/23 Nicole Carranza NP 420 [facility] 508 [place], [place] 976475 Assigned Heart and Vascular Provider 01/09/22 Andressa Ruiz PA-C 420 [facility] 803 [place], [place] 5[address]25 Physician General Surgeon Endocrinology, Diabetes, and Metabolism 03/01/22 Ashlyn Storm, RN [facility] 711 [facility] [place], [place] 359[address]24 Registered Nurse 03/03/22 09/15/22 Rubén Gunter [facility] 909 [place] [address] Assigned MTM Pharmacist 02/27/22 Andressa Ruiz PA-C 420 [facility] 803 [place], [place] 84[address]15 Assigned Endocrinology Provider 03/13/22 09/07/23 Suzan Harry MD 420 [place], [place] 559455 Nephrology 06/30/23 Yasmeen Powers MD 500 [place], [place] 0[address]285 Nephrology 10/24/23 Yasmeen Powers MD 500 [place] [address] Assigned Nephrology Provider 11/08/23 documented as of this encounter
--- OUTSIDE RECORDS SUMMARY | 2024-01-17 16:48 | XMS_ITS | Encounter Summary ---
Author Organization [place] Address [address] [place] [address] Care Team Providers Care Tester/Lift Trucker Name Role Phone Rubén Boyle MD Primary Care Provider Pamela Blanco GARMENT SUPERVISOR Unavailable Pedro Segura MD Unavailable [phone] Freddy Craft MD Unavailable Abdifatah Van MD Unavailable Nicole Carranza GARMENT SUPERVISOR Unavailable [phone] Andressa Ruiz-C Unavailable Ashlyn Storm RN Unavailable Rubén Gunter [facility] Unavailable Andressa Ruiz-C Unavailable Suzan Harry MD Unavailable [phone] Yasmeen Powers MD Unavailable Yasmeen Powers MD Unavailable [phone] Encounter Details Date Type Department Care Team (Late st Contact Info) Description 01/12/[address] [facility] 909 [place] [address] Social History Tobacco Use Types [...] documented as of this encounter Care Teams Tester/Lift Trucker Relationship Specialty Start Date End Date Rubén Boyle MD PCP - General Family Practice 03/08/16 Pamela Blanco NP [facility] [address] [place] [address] Referring Physician 07/13/16 Pedro Segura MD [facility] [address] [place] [address] Nephrology 10/03/16 Freddy Craft MD 516 [facility] 2A [place], [place] [address] Assigned Gastroenterology Provider 02/08/20 Abdifatah Van MD [address] [facility] [address] [place] [address] Assigned Nephrology Provider 07/13/20 11/07/23 Nicole Carranza NP 420 [facility] 508 [place], [place] 276035 Assigned Heart and Vascular Provider 01/09/22 Andressa Ruiz PA-C 420 [facility] 803 [place], [place] 394625 Physician Paving Crew Foreman Endocrinology, Diabetes, and Metabolism 03/01/22 Ashlyn Storm, RN [facility] 711 [facility] SE [place], [place] 346[address] Registered Nurse 03/03/22 09/15/22 Rubén Gunter [facility] 909 [place] [address] Assigned MTM Pharmacist 02/27/22 Andressa Ruiz PA-C 420 [facility] 803 [place], [place] 271185 Assigned Endocrinology Provider 03/13/22 09/07/23 Suzan Harry MD 420 [place], [place] 503025 Nephrology 06/30/23 Yasmeen Powers MD 500 [place], [place] 131255 Nephrology 10/24/23 Yasmeen Powers MD 500 [place] [address] Assigned Nephrology Provider 11/08/23 documented as of this encounter
--- OUTSIDE RECORDS SUMMARY | 2024-01-17 16:48 | XMS_ITS | Encounter Summary ---
Author Organization [place] Address [address] [place] [address] Care Team Providers Care Bench Mechanic Name Role Phone Rubén Boyle MD Primary Care Provider Pamela Blanco ELECTRICIAN MASTER Unavailable [phone] Pedro Segura MD Unavailable [phone] Freddy Craft MD Unavailable [phone] Abdifatah Van MD Unavailable Nicole Carranza ELECTRICIAN MASTER Unavailable [phone] Andressa Ruiz-C Unavailable [phone] Ashlyn Storm RN Unavailable [phone] Rubén Gunter [facility] Unavailable Andressa Ruiz-C Unavailable [phone] Suzan Harry MD Unavailable [phone] Yasmeen Powers MD Unavailable [phone] Yasmeen Powers MD Unavailable [phone] Encounter Details Date Type Department Care Team (Late st Contact Info) Description 01/10/2017 External Order Results [facility] 909 [place] [address] Social History Tobacco Use Types [...] documented as of this encounter Care Teams Bench Mechanic Relationship Specialty Start Date End Date Rubén Boyle MD PCP - General Family Practice 03/08/16 Pamela Blanco ELECTRICIAN MASTER [facility] [address] [place] [address] Referring Physician 07/13/16 Pedro Segura MD [facility] [address] [place] [address] Nephrology 10/03/16 Freddy Craft MD 516 [facility] 2A [place], [place] [address] Assigned Gastroenterology Provider 02/08/20 Abdifatah Van MD 717 [facility] [address] [place], [place] [address]254 Assigned Nephrology Provider 07/13/20 11/07/23 Nicole Carranza NP 420 [facility] 508 [place], [place] [address]695 Assigned Heart and Vascular Provider 01/09/22 Andressa Ruiz PA-C 420 [facility] 803 [place], [place] 883945 Physician Mental Tester Endocrinology, Diabetes, and Metabolism 03/01/22 Ashlyn Storm RN [facility] 711 [place] [address] Registered Nurse 03/03/22 09/15/22 Rubén Gunter [facility] [address] [place] [address] Assigned MTM Pharmacist 02/27/22 Andressa Ruiz PA-C 420 [facility] 803 [place] [address] Assigned Endocrinology Provider 03/13/22 09/07/23 Suzan Harry MD 420 [place] [address] Nephrology 06/30/23 Yasmeen Powers MD 500 [place] [address] Nephrology 10/24/23 Yasmeen Powers MD 500 [place] [address] Assigned Nephrology Provider 11/08/23 documented as of this encounter
--- OUTSIDE RECORDS SUMMARY | 2024-01-17 16:48 | XMS_ITS | Encounter Summary ---
Author Organization [place] Address [address] [place] [address] Care Team Providers Care Business Transformation Consultant Name Role Phone Rubén Boyle MD Primary Care Provider Pamela Blanco WELT ROUGHER Unavailable Pedro Segura MD Unavailable Freddy Craft MD Unavailable [phone] Abdifatah Van MD Unavailable Nicole Carranza WELT ROUGHER Unavailable [phone] Andressa Ruiz-C Unavailable Ashlyn Storm RN Unavailable [phone] Rubén Gunter [facility] Unavailable Andressa Ruiz-C Unavailable Suzan Harry MD Unavailable [phone] Yasmeen Powers MD Unavailable [phone] Yasmeen Powers MD Unavailable [phone] Encounter Details Date Type Department Care Team (Late st Contact Info) Description 12/22/[address] [facility] 909 [place] [address] Social History Tobacco Use Types [...] documented as of this encounter Care Teams Business Transformation Consultant Relationship Specialty Start Date End Date Rubén Boyle MD PCP - General Family Practice 03/08/16 Pamela Blanco WELT ROUGHER [facility] [address] [place] [address] Referring Physician 07/13/16 Pedro Segura MD [facility] [address] [place] [address] Nephrology 10/03/16 Freddy Craft MD 516 [facility] 2A [place], [place] [address]155 Assigned Gastroenterology Provider 02/08/20 Abdifatah Van MD 717 [facility] [address] 353 [place], [place] [address] Assigned Nephrology Provider 07/13/20 11/07/23 Nicole Carranza NP 420 [facility] 508 [place], [place] [address] Assigned Heart and Vascular Provider 01/09/22 Andressa Ruiz PA-C 420 [facility] 803 [place] [address] Physician Frame Nailer Endocrinology, Diabetes, and Metabolism 03/01/22 Ashlyn Storm, RN [facility] 711 [place] [address] Registered Nurse 03/03/22 09/15/22 Rubén Gunter [facility] [address] [place] [address] Assigned MTM Pharmacist 02/27/22 Andressa Ruiz PA-C 420 [facility] 803 [place] [address] Assigned Endocrinology Provider 03/13/22 09/07/23 Suzan Harry MD 420 [place] [address] Nephrology 06/30/23 Yasmeen Powers MD 500 [place], [place] 8[address]25 Nephrology 10/24/23 Yasmeen Powers MD 500 [place], [place] 840225 Assigned Nephrology Provider 11/08/23 documented as of this encounter
--- OUTSIDE RECORDS SUMMARY | 2024-01-17 16:48 | XMS_ITS | Encounter Summary ---
Author Organization [place] Address [address] [place] [address] Care Team Providers Care Brain Wave Technician Name Role Phone Rubén Boyle MD Primary Care Provider Pamela Blanco MONOGRAM AND LETTER PASTER Unavailable Pedro Segura MD Unavailable [phone] Freddy Craft MD Unavailable [phone] Abdifatah Van MD Unavailable Nicole Carranza MONOGRAM AND LETTER PASTER Unavailable [phone] Andressa Ruiz-C Unavailable Ashlyn Storm RN Unavailable [phone] Rubén Gunter [facility] Unavailable Andressa Ruiz-C Unavailable Suzan Harry MD Unavailable [phone] Yasmeen Powers MD Unavailable Yasmeen Powers MD Unavailable [phone] Encounter Details Date Type Department Care Team (Late st Contact Info) Description 10/13/[address] [facility] 909 [place] [address] Social History Tobacco Use Types [...] documented as of this encounter Care Teams Brain Wave Technician Relationship Specialty Start Date End Date Rubén Boyle MD PCP - General Family Practice 03/08/16 Pamela Blanco NP [facility] [address] [place] [address] Referring Physician 07/13/16 Pedro Segura MD [facility] [address] [place] [address] Nephrology 10/03/16 Freddy Craft MD 516 [facility] 2A [place], [place] 839955 Assigned Gastroenterology Provider 02/08/20 Abdifatah Van MD 717 [facility] [address] 353 [place], [place] 054174 Assigned Nephrology Provider 07/13/20 11/07/23 Nicole Carranza NP 420 [facility] 508 [place], [place] 007265 Assigned Heart and Vascular Provider 01/09/22 Andressa Ruiz PA-C 420 [facility] 803 [place], [place] 911895 Physician Analyst Microbiology Lab Endocrinology, Diabetes, and Metabolism 03/01/22 Ashlyn Storm, RN [facility] 711 [place], [place] 121694 Registered Nurse 03/03/22 09/15/22 Rubén Gunter [facility] [address] [facility] [address] [place], [place] 899495 Assigned MTM Pharmacist 02/27/22 Andressa Ruiz PA-C 420 [facility] 803 [place] [address] Assigned Endocrinology Provider 03/13/22 09/07/23 Suzan Harry MD 420 [place] [address] Nephrology 06/30/23 Yasmeen Powers MD 500 [place] [address] Nephrology 10/24/23 Yasmeen Powers MD 500 [place] [address] Assigned Nephrology Provider 11/08/23 documented as of this encounter
--- OUTSIDE RECORDS SUMMARY | 2024-01-17 16:48 | XMS_ITS | Encounter Summary ---
Author Organization [place] Address [address] [place] [address] Care Team Providers Care Crew Member Name Role Phone Rubén Boyle MD Primary Care Provider Paemla Blanco CHIEF BANK EXAMINER Unavailable [phone] Pedro Segura MD Unavailable Freddy Craft MD Unavailable Abdifatah Van MD Unavailable Nicole Carranza CHIEF BANK EXAMINER Unavailable [phone] Andressa Ruiz-C Unavailable Ashlyn Storm RN Unavailable Rubén Gunter [facility] Unavailable Andressa Ruiz-C Unavailable Suzan Harry MD Unavailable [phone] Yasmeen Powers MD Unavailable [phone] Yasmeen Powers MD Unavailable [phone] Encounter Details Date Type Department Care Team (Late st Contact Info) Description 10/14/2016 External Order Results [facility] 909 [place] [address] Social History Tobacco Use Types [...] documented as of this encounter Care Teams Crew Member Relationship Specialty Start Date End Date Rubén Boyle MD PCP - General Family Practice 03/08/16 Pamela Blanco, GERMANIA [facility] [address] [place] [address] Referring Physician 07/13/16 ePdro Segura MD [facility] [address] [place] [address] Nephrology 10/03/16 Freddy Craft MD 516 [facility] 2A [place], [place] 201945 Assigned Gastroenterology Provider 02/08/20 Abdifatah Van MD [address] [place] [address] 353 [place], [place] 82889414 Assigned Nephrology Provider 07/13/20 11/07/23 Nicole Carranza NP 420 [facility] 508 [place], [place] 135255 Assigned Heart and Vascular Provider 01/09/22 Andressa Ruiz PA-C 420 [facility] 803 [place], [place] 82083455 Physician Accounts Receivable Executive Endocrinology, Diabetes, and Metabolism 03/01/22 Ashlyn Storm RN [facility] 711 [place], [place] 19749414 Registered Nurse 03/03/22 09/15/22 Rubén Gunter [facility] 909 [place], [place] 719975 Assigned MTM Pharmacist 02/27/22 Andressa Ruiz PA-C 420 [facility] 803 [place], [place] 617375 Assigned Endocrinology Provider 03/13/22 09/07/23 Suzan Harry MD 420 [place], [place] 160925 Nephrology 06/30/23 Yasmeen Powers MD 500 [place] [address] Nephrology 10/24/23 Yasmeen Powers MD 500 [place] [address] Assigned Nephrology Provider 11/08/23 documented as of this encounter
--- OUTSIDE RECORDS SUMMARY | 2024-01-17 16:48 | XMS_ITS | Encounter Summary ---
Author Organization [place] Address [address] [place] [address] Care Team Providers Care Ui Application Developer Name Role Phone Rubén Boyle MD Primary Care Provider Pamela Blanco AUTO HEATER MECHANIC Unavailable [phone] Pedro Segura MD Unavailable [phone] Freddy Craft MD Unavailable Abdifatah Van MD Unavailable Nicole Carranza AUTO HEATER MECHANIC Unavailable [phone] Andressa Ruiz-C Unavailable Ashlyn Storm RN Unavailable Rubén Gunter [facility] Unavailable Andressa Ruiz-C Unavailable Suzan Harry MD Unavailable [phone] Yasmeen Powers MD Unavailable Yasmeen Powers MD Unavailable [phone] Encounter Details Date Type Department Care Team (Late st Contact Info) Description 09/23/2016 External Order Results [facility] 909 [place] [address] Social History Tobacco Use Types [...] documented as of this encounter Care Teams Ui Application Developer Relationship Specialty Start Date End Date Rubén Boyle MD PCP - General Family Practice 03/08/16 Pamela Blanco NP [facility] [address] [place] [address] Referring Physician 07/13/16 Pedro Segura MD [facility] [address] [place] [address] Nephrology 10/03/16 Freddy Craft MD 516 [facility] 2A [place], [place] 670925 Assigned Gastroenterology Provider 02/08/20 Abdifatah Van MD 717 [facility] VICK [address] [place], [place] 8969[address] Assigned Nephrology Provider 07/13/20 11/07/23 Nicole Carranza NP 420 [facility] 508 [place], [place] 54254455 Assigned Heart and Vascular Provider 01/09/22 Andressa Ruiz PA-C 420 [facility] 803 [place], [place] 8869[address] Physician Hand Miter Operator Endocrinology, Diabetes, and Metabolism 03/01/22 Ashlyn Storm, RN [facility] 711 [place] [address] Registered Nurse 03/03/22 09/15/22 Rubén Gunter [facility] 909 [place] [address] Assigned MTM Pharmacist 02/27/22 Andressa Ruiz PA-C 420 [facility] 803 [place] [address] Assigned Endocrinology Provider 03/13/22 09/07/23 Suzan Harry MD 420 [place] [address] Nephrology 06/30/23 Yasmeen Powers MD 500 [place], [place] 396645 Nephrology 10/24/23 Yasmeen Powers MD 500 [place], [place] 575675 Assigned Nephrology Provider 11/08/23 documented as of this encounter
--- OUTSIDE RECORDS SUMMARY | 2024-01-17 16:48 | XMS_ITS | Encounter Summary ---
Author Organization [place] Address [address] [place] [address] Care Team Providers Care Transit Police Officer Name Role Phone Rubén Boyle MD Primary Care Provider Pamela Blanco HAULPAK DRIVER Unavailable Pedro Segura MD Unavailable Freddy Craft MD Unavailable Abdifatah Van MD Unavailable Nicole Carranza HAULPAK DRIVER Unavailable [phone] Andressa Ruiz-C Unavailable Ashlyn Storm RN Unavailable Rubén Gunter [facility] Unavailable Andressa Ruiz-C Unavailable [phone] Suzan Harry MD Unavailable [phone] Yasmeen Powers MD Unavailable Yasmeen Powers MD Unavailable [phone] Encounter Details Date Type Department Care Team (Late st Contact Info) Description 10/26/2016 External Order Results [facility] 909 [place] [address] Social History Tobacco Use Types [...] documented as of this encounter Care Teams Transit Police Officer Relationship Specialty Start Date End Date Rubén Boyle MD PCP - General Family Practice 03/08/16 Pamela Blanco HAULPAK DRIVER [facility] [address] [place] [address] Referring Physician 07/13/16 Pedro Segura MD [facility] [address] [place] [address] Nephrology 10/03/16 Freddy Craft MD 516 [facility] 2A [place], [place] 037055 Assigned Gastroenterology Provider 02/08/20 Abdifatah Van MD 717 [facility] [address] 353 [place], [place] 619034 Assigned Nephrology Provider 07/13/20 11/07/23 Nicole Carranza NP 420 [facility] 508 [place], [place] 934165 Assigned Heart and Vascular Provider 01/09/22 Andressa Ruiz PA-C 420 [facility] 803 [place], [place] 973485 Physician Color Matcher Endocrinology, Diabetes, and Metabolism 03/01/22 Ashlyn Storm, RN [facility] 711 [place], [place] 08374414 Registered Nurse 03/03/22 09/15/22 Rubén Gunter [facility] 909 [place], [place] 29685455 Assigned MTM Pharmacist 02/27/22 Andressa Ruiz PA-C 420 [facility] 803 [place], [place] 015035 Assigned Endocrinology Provider 03/13/22 09/07/23 Suzan Harry MD [address] [place] [address] 112075 Nephrology 06/30/23 Yasmeen Powers MD 500 [place], [place] 092675 Nephrology 10/24/23 Yasmeen Powers MD 500 [place], [place] 089985 Assigned Nephrology Provider 11/08/23 documented as of this encounter
--- OUTSIDE RECORDS SUMMARY | 2024-01-17 16:48 | XMS_ITS | Encounter Summary ---
Author Organization [place] Address [address] [place] [address]28 Care Team Providers Care [place] Seamer Name Role Phone Rubén Boyle MD Primary Care Provider Pamela Blanco LIGHTING ADVISER Unavailable Pedro Segura MD Unavailable [phone] Freddy Craft MD Unavailable Abdifatah Van MD Unavailable Nicole Carranza LIGHTING ADVISER Unavailable [phone] Andressa Ruiz-C Unavailable [phone] Ashlyn Storm RN Unavailable Rubén Gunter [facility] Unavailable Andressa Ruiz-C Unavailable Suzan Harry MD Unavailable [phone] Yasmeen Powers MD Unavailable Yasmeen Powers MD Unavailable [phone] Encounter Details Date Type Department Care Team (Late st Contact Info) Description 12/27/2016 External Order Results [facility] 909 [place] [address] Social History Tobacco Use Types [...] PM CDTOrder(s) created erroneously. 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, 07/10/16 rectal swab 06/21/2016 06/21/2016 documented as of this encounter Care Teams [place] Seamer Relationship Specialty Start Date End Date Rubén Boyle MD PCP - General Family Practice 03/08/16 Pamela Blanco NP [facility] [address] [place], [place] 406767 Referring Physician 07/13/16 Pedro Segura MD [facility] [address] [place], [place] 400967 Nephrology 10/03/16 Freddy Craft MD [address] [place] [address] Assigned Gastroenterology Provider 02/08/20 Abdifatah Van MD 717 [facility] [address] 353 [place] [address] Assigned Nephrology Provider 07/13/20 11/07/23 Nicole Carranza NP 420 [facility] 508 [place], [place] 923475 Assigned Heart and Vascular Provider 01/09/22 Andressa Ruiz PA-C 420 [facility] 803 [place], [place] 802215 Physician Casting Wheel Operator Endocrinology, Diabetes, and Metabolism 03/01/22 Ashlyn Storm RN [facility] 711 [place], [place] 644114 Registered Nurse 03/03/22 09/15/22 Rubén Gunter [facility] 909 [place], [place] 987055 Assigned MTM Pharmacist 02/27/22 Andressa Ruiz PA-C 420 [facility] 803 [place], [place] 497835 Assigned Endocrinology Provider 03/13/22 09/07/23 Suzan Harry MD 420 [place], [place] 966205 Nephrology 06/30/23 Yasmeen Powres MD 500 [place], [place] 748245 Nephrology 10/24/23 Yasmeen Powers MD NPI: [id number] [place] [address] Assigned Nephrology Provider 11/08/23 documented as of this encounter
--- OUTSIDE RECORDS SUMMARY | 2024-01-17 16:48 | XMS_ITS | Encounter Summary ---
Author Organization [place] Address [address] [place] [address] 86935 Care Team Providers Care Warehouse Helper Name Role Phone Rubén Boyle MD Primary Care Provider Pamela Blanco LEADERSHIP DEVELOPMENT CONSULTANT Unavailable Pedro Segura MD Unavailable Freddy Craft MD Unavailable Abdifatah Van MD Unavailable Nicole Carranza LEADERSHIP DEVELOPMENT CONSULTANT Unavailable [phone] Andressa Ruiz-C Unavailable Ashlyn Storm RN Unavailable [phone] Rubén Gunter [facility] Unavailable Andressa Ruiz-C Unavailable Suzna Harry MD Unavailable [phone] Yasmeen Powers MD Unavailable [phone] Yasmeen Powers MD Unavailable [phone] Encounter Details Date Type Department Care Team (Late st Contact Info) Description 11/17/2016 External Order Results [facility] 909 [place] [address] Social History Tobacco Use Types [...] as of this encounter Care Teams Warehouse Helper Relationship Specialty Start Date End Date Rubén Boyle MD PCP - General Family Practice 03/08/16 Pamela Blanco NP [facility] [address] [place] [address] Referring Physician 07/13/16 Pedro Segura MD [facility] [address] [place] [address] Nephrology 10/03/16 Freddy Craft MD 516 [facility] 2A [place] [address] Assigned Gastroenterology Provider 02/08/20 Abdifatah Van MD 717 [facility] [address] 353 [place] [address] Assigned Nephrology Provider 07/13/20 11/07/23 Nicole Carranza NP 420 [facility] 508 [place], [place] 295165 Assigned Heart and Vascular Provider 01/09/22 Andressa Ruiz PA-C 420 [facility] 803 [place], [place] 405435 Physician Steward/Stewardess Second Endocrinology, Diabetes, and Metabolism 03/01/22 Ashlyn Storm RN [facility] 711 [place] [address] Registered Nurse 03/03/22 09/15/22 Rubén Gunter [facility] 909 [facility] [place] [address] Assigned MTM Pharmacist 02/27/22 Andressa Ruiz PA-C 420 [facility] 803 [place] [address] Assigned Endocrinology Provider 03/13/22 09/07/23 Suzan Harry MD [address] [place] [address] Nephrology 06/30/23 Yasmeen Powers MD 500 [place] [address] Nephrology 10/24/23 Yasmeen Powers MD 500 [place] [address] Assigned Nephrology Provider 11/08/23 documented as of this encounter
--- OUTSIDE RECORDS SUMMARY | 2024-01-17 16:48 | XMS_ITS | Encounter Summary ---
Author Organization [place] Address [address] [place] [address] 29472 Care Team Providers Care Photoengraving Proofer Name Role Phone Rubén Boyle MD Primary Care Provider [phone] Pamela Blanco CYTOTECHNOLOGIST SUPERVISOR Unavailable Pedro Segura MD Unavailable Freddy Craft MD Unavailable Abdifatah Van MD Unavailable Nicole Carranza CYTOTECHNOLOGIST SUPERVISOR Unavailable [phone] Andressa Ruiz-C Unavailable Ashlyn Storm RN Unavailable [phone] Rubén Gunter [facility] Unavailable Andressa Ruiz-C Unavailable Suzan Harry MD Unavailable [phone] Yasmeen Powers MD Unavailable Yasmeen Powers MD Unavailable [phone] Encounter Details Date Type Department Care Team (Late st Contact Info) Description 10/05/[address] [facility] 909 [place] [address] Social History Tobacco Use Types [...] documented as of this encounter Care Teams Photoengraving Proofer Relationship Specialty Start Date End Date Rubén Boyle MD PCP - General Family Practice 03/08/16 Pamela Blanco NP [facility] [address] [place] [address] Referring Physician 07/13/16 Pedro Segura MD [facility] 761540 [place] [address] Nephrology 10/03/16 Freddy Craft MD [address] [place] [address] 2A [place] [address] Assigned Gastroenterology Provider 02/08/20 Abdifatah Van MD 717 [facility] VICK 353 [place] [address] Assigned Nephrology Provider 07/13/20 11/07/23 Nicole Carranza, GERMANIA 420 [facility] 508 [place] [address] Assigned Heart and Vascular Provider 01/09/22 Andressa Ruiz PA-C 420 [facility] 803 [place] [address] Physician Entertainer Or Variety Artist Endocrinology, Diabetes, and Metabolism 03/01/22 Ashlyn Storm, RN [facility] 711 [place] [address] Registered Nurse 03/03/22 09/15/22 Rubén Gunter [facility] [address] [place] [address] Assigned MTM Pharmacist 02/27/22 Andressa Ruiz PA-C 420 [facility] 803 [place] [address] Assigned Endocrinology Provider 03/13/22 09/07/23 Suzan Harry MD 420 [place] [address] Nephrology 06/30/23 Yasmeen Powers MD [address] [place] [address] Nephrology 10/24/23 Yasmeen Powers MD 500 [place] [address] Assigned Nephrology Provider 11/08/23 documented as of this encounter
--- OUTSIDE RECORDS SUMMARY | 2024-01-17 16:49 | XMS_ITS | Encounter Summary ---
Author Organization [place] Address [address] [place] [address] Care Team Providers Care Emergency Veterinarian Name Role Phone Rubén Boyle MD Primary Care Provider Pamela Blanco [employer] Unavailable Pedro Segura MD Unavailable Freddy Craft MD Unavailable Abdifatah Van MD Unavailable Nicole Carranza [facility] Unavailable [phone] Andressa Ruiz-C Unavailable [phone] Ashlyn Storm RN Unavailable Rubén Gunter [facility] Unavailable Andressa Ruiz-C Unavailable [phone] Suzan Harry MD Unavailable [phone] Yasmeen Powers MD Unavailable Yasmeen Powers MD Unavailable [phone] Encounter Details Date Type Department Care Team (Late st Contact Info) Description 09/14/2016 External Order Results [facility] 909 [place] [address] Social History Tobacco Use Types [...] documented as of this encounter Care Teams Emergency Veterinarian Relationship Specialty Start Date End Date Rubén Boyle MD PCP - General Family Practice 03/08/16 Pamela Blanco PARALE[facility]ALS [facility] [address] [place] [address] Referring Physician 07/13/16 Pedro Segura MD [facility] [address] [place], [place] 049667 Nephrology 10/03/16 Freddy Craft MD 516 [facility] 2A [place], [place] 16048455 Assigned Gastroenterology Provider 02/08/20 Abdifatah Van MD 717 [facility] VICK 353 [place], [place] 12902414 Assigned Nephrology Provider 07/13/20 11/07/23 Nicole Carranza NP 420 [facility] 508 [place], [place] 180445 Assigned Heart and Vascular Provider 01/09/22 Andressa Ruiz PA-C 420 [facility] 803 [place], [place] 632765 Physician Fruit And Vegetable Classer Endocrinology, Diabetes, and Metabolism 03/01/22 Ashlyn Storm, RN [facility] 711 [place] [address] Registered Nurse 03/03/22 09/15/22 Rubén Gunter [facility] 909 [place], [place] 96898455 Assigned MTM Pharmacist 02/27/22 Andressa Ruiz PA-C 420 [facility] 803 [place] [address] Assigned Endocrinology Provider 03/13/22 09/07/23 Suzan Harry MD 420 [place] [address] Nephrology 06/30/23 Yasmeen Powers MD 500 [place], [place] 61669[address] Nephrology 10/24/23 Yasmeen Powers MD 500 [place], [place] 864815 Assigned Nephrology Provider 11/08/23 documented as of this encounter
--- OUTSIDE RECORDS SUMMARY | 2024-01-17 16:49 | XMS_ITS | Encounter Summary ---
Author Organization [place] Address [address] [place] [address] Care Team Providers Care Gradall Operator Name Role Phone Rubén Boyle MD Primary Care Provider Pamela Blanco CRATE MAKER Unavailable [phone] Pedro Segura MD Unavailable [phone] Freddy Craft MD Unavailable [phone] Abdifatah Van MD Unavailable Nicole Carranza CRATE MAKER Unavailable [phone] Andressa Ruiz-C Unavailable Ashlyn Storm RN Unavailable [phone] Rubén uGnter [facility] Unavailable Andressa Ruiz-C Unavailable Suzan Harry MD Unavailable [phone] Yasmeen Powers MD Unavailable Yasmeen Powers MD Unavailable [phone] Encounter Details Date Type Department Care Team (Late st Contact Info) Description 08/30/2016 External Order Results [facility] Transplant Clinic 909 [place] [address] Social History Tobacco Use Types [...] by Yamil Santo on 09/01/2016. Verified by Cruzito Marlow on 09/01/2016. 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, 07/10/16 rectal swab 06/21/2016 06/21/2016 documented as of this encounter Care Teams Gradall Operator Relationship Specialty Start Date End Date Rubén Boyle MD PCP - General Family Practice 03/08/16 Pamela Blanco NP [facility] [address] [place] [address] Referring Physician 07/13/16 Pedro Segura MD [facility] [address] [place] [address] Nephrology 10/03/16 Freddy Craft MD 516 [facility] 2A [place], [place] 266935 Assigned Gastroenterology Provider 02/08/20 Abdifatah Van MD 717 [facility] [address] [place], [place] 490014 Assigned Nephrology Provider 07/13/20 11/07/23 Nicole Carranza NP 420 [facility] 508 [place], [place] 273115 Assigned Heart and Vascular Provider 01/09/22 Andressa Ruiz PA-C 420 [facility] 803 [place], [place] 6[address]505 Physician Ice Scraper Endocrinology, Diabetes, and Metabolism 03/01/22 Ashlyn Storm, RN [facility] 711 [place], [place] 777994 Registered Nurse 03/03/22 09/15/22 Rubén Gunter [facility] 909 [place] [address] Assigned MTM Pharmacist 02/27/22 Andressa Ruiz PA-C 420 [facility] 803 [place] [address] Assigned Endocrinology Provider 03/13/22 09/07/23 Suzan Harry MD 420 [place] [address] Nephrology 06/30/23 Yasmeen Powers MD 500 [place] [address] Nephrology 10/24/23 Yasmeen Powers MD 500 [place] [address] Assigned Nephrology Provider 11/08/23 documented as of this encounter
--- OUTSIDE RECORDS SUMMARY | 2024-01-17 16:49 | XMS_ITS | Encounter Summary ---
Author Organization [place] Address [address] [place] [address] Care Team Providers Care Lead Tinner Name Role Phone Rubén Boyle MD Primary Care Provider [phone] Pamela Blanco REGULATORY SUBMISSIONS ASSOCIATE Unavailable Pedro Segura MD Unavailable [phone] Freddy Craft MD Unavailable [phone] Abdifatah Van MD Unavailable Nicole Carranza REGULATORY SUBMISSIONS ASSOCIATE Unavailable [phone] Andressa Ruiz-C Unavailable Ashlyn Storm RN Unavailable [phone] Rubén Gunter [facility] Unavailable Andressa Ruiz-C Unavailable [phone] Suzan Harry MD Unavailable [phone] Yasmeen Powers MD Unavailable Yasmeen Powers MD Unavailable [phone] Encounter Details Date Type Department Care Team [...] documented as of this encounter Care Teams Lead Tinner Relationship Specialty Start Date End Date Rubén Boyle MD PCP - General Family Practice 03/08/16 Pamela Blanco NP [facility] [address] [place], [place] [id number] Referring Physician 07/13/16 Pedro Segura MD [facility] [address] [place] [address] Nephrology 10/03/16 Freddy Craft MD 516 [facility] [address] [place] [address] Assigned Gastroenterology Provider 02/08/20 Abdifatah Van MD [address] [facility] [address] [place] [address] Assigned Nephrology Provider 07/13/20 11/07/23 Nicole Carranza NP [address] [facility] [address] [place], [place] 196175 Assigned Heart and Vascular Provider 01/09/22 Andressa Ruiz PA-C 420 [facility] 803 [place] [address] Physician X Ray Developing Machine Operator Endocrinology, Diabetes, and Metabolism 03/01/22 Ashlyn Storm, RN [facility] 711 [place] [address] Registered Nurse 03/03/22 09/15/22 Rubén Gunter [facility] [address] [place] [address] Assigned MTM Pharmacist 02/27/22 Andressa Ruiz PA-C 420 [facility] 803 [place] [address] Assigned Endocrinology Provider 03/13/22 09/07/23 Suzan Harry MD 420 [place] [address] Nephrology 06/30/23 Yasmeen Powers MD 500 [place] [address] Nephrology 10/24/23 Yasmeen Powers MD 500 [place] [address] Assigned Nephrology Provider 11/08/23 documented as of this encounter
--- OUTSIDE RECORDS SUMMARY | 2024-01-17 16:49 | XMS_ITS | Encounter Summary ---
Author Organization [place] Address [address] [place] [address] Care Team Providers Care Theoretical Physics Teacher Name Role Phone Rubén Boyle MD Primary Care Provider Pamela Blanco TRAVEL COUNSELOR [employer]OBI[employer] CLUB Unavailable Pedro Segura MD Unavailable Freddy Craft MD Unavailable Abdifatah Van MD Unavailable Nicole Carranza TRAVEL COUNSELOR [employer]UB Unavailable [phone] Andressa Ruiz-C Unavailable Ashlyn Storm RN Unavailable [phone] Rubén Gunter [facility] Unavailable Andressa Ruiz-C Unavailable Suzan Harry MD Unavailable [phone] Yasmeen Powers MD Unavailable Yasmeen Powers MD Unavailable [phone] Encounter Details Date Type Department Care Team (Late st Contact Info) Description 08/24/2016 External Order Results [facility] 909 [place] [address] Social History Tobacco Use Types [...] LABDE SCAN 08/23/2016 2:45 PM CDT Narrative SAMNATHA PFT - 08/24/2016 9:06 AM CDT Verified by Cruzito Marlow on 08/24/2016. 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, 07/10/16 rectal swab 06/21/2016 06/21/2016 documented as of this encounter Care Teams Theoretical Physics Teacher Relationship Specialty Start Date End Date Rubén Boyle MD PCP - General Family Practice 03/08/16 Pamela Blanco NP [facility] [address] [place] [address] Referring Physician 07/13/16 Pedro Segura MD [facility] [address] [place] [address] Nephrology 10/03/16 Freddy Craft MD 516 [facility] [place], [place] 06[address]25 Assigned Gastroenterology Provider 02/08/20 Abdifatah Van MD 717 [facility] [address] [place], [place] 539254 Assigned Nephrology Provider 07/13/20 11/07/23 Nicole Carranza NP 420 [facility] 508 [place], [place] 752135 Assigned Heart and Vascular Provider 01/09/22 Andressa Ruiz PA-C 420 [facility] 803 [place], [place] 735605 Physician Flat Grinder Operator Endocrinology, Diabetes, and Metabolism 03/01/22 Ashlyn Storm RN [facility] 711 [place], [place] [address] Registered Nurse 03/03/22 09/15/22 Rubén Gunetr [facility] 909 [place] [address] Assigned MTM Pharmacist 02/27/22 Andressa Ruiz PA-C 420 [facility] 803 [place] [address] Assigned Endocrinology Provider 03/13/22 09/07/23 Suzan Harry MD [address] [place] [address] Nephrology 06/30/23 Yasmeen Powers MD 500 [place] [address] Nephrology 10/24/23 Yasmeen Powers MD 500 [place] [address] Assigned Nephrology Provider 11/08/23 documented as of this encounter
--- OUTSIDE RECORDS SUMMARY | 2024-01-17 16:49 | XMS_ITS | Encounter Summary ---
Author Organization [place] Address [address] [place] [address] Care Team Providers Care Clinical Dental Technician Name Role Phone Rubén Boyle MD Primary Care Provider Pamela Blanco HEAVY EQUIPMENT OPERATOR APPRENTICE Unavailable Pedro Segura MD Unavailable [phone] Freddy Craft MD Unavailable Abdifatah Van MD Unavailable Nicole Carranza HEAVY EQUIPMENT OPERATOR APPRENTICE Unavailable [phone] Andressa Ruiz-C Unavailable Ashlyn Storm RN Unavailable Rubén Gunter [facility] Unavailable Andressa Ruiz-C Unavailable Suzan Harry MD Unavailable [phone] Yasmeen Powers MD Unavailable Yasmeen Powers MD Unavailable [phone] Encounter Details Date Type Department Care Team (Late st Contact Info) Description 08/25/2016 External Order Results [facility] 909 [place] [address] Social History Tobacco Use Types [...] as of this encounter Care Teams Clinical Dental Technician Relationship Specialty Start Date End Date Rubén Boyle MD PCP - General Family Practice 03/08/16 Pamela Blanco NP [facility] [address] [place] [address] Referring Physician 07/13/16 Pedro Segura MD [facility] [address] [place], [place] 613897 Nephrology 10/03/16 Freddy Craft MD 516 [facility] [address] [place] [address] Assigned Gastroenterology Provider 02/08/20 Abdifatah Van MD 717 [facility] [address] [place] [address] Assigned Nephrology Provider 07/13/20 11/07/23 Nicole Carranza NP 420 [facility] 508 [place] [address] Assigned Heart and Vascular Provider 01/09/22 Andressa Ruiz PA-C 420 [facility] 803 [place] [address] Physician Investment Representative Endocrinology, Diabetes, and Metabolism 03/01/22 Ashlyn Storm RN [facility] 711 [place] [address] Registered Nurse 03/03/22 09/15/22 Rubén Gunter [facility] [address] [place] [address] Assigned MTM Pharmacist 02/27/22 Andressa Ruiz PA-C [address] [place], [place] [address] [place] [address] Assigned Endocrinology Provider 03/13/22 09/07/23 Suazn Harry MD [address] [place] [address] Nephrology 06/30/23 Yasmeen Powers MD 500 [place], [place] 976885 Nephrology 10/24/23 Yasmeen Powers MD 500 [place] [address] Assigned Nephrology Provider 11/08/23 documented as of this encounter
--- OUTSIDE RECORDS SUMMARY | 2024-01-17 16:49 | XMS_ITS | Encounter Summary ---
Author Organization [place] Address [address] [place] [address] Care Team Providers Care Streetcar Operator Name Role Phone Rubén Boyle MD Primary Care Provider Pamela Blanco ANODE REBUILDER Unavailable [phone] Pedro Segura MD Unavailable [phone] Freddy Craft MD Unavailable Abdifatah Van MD Unavailable Nicole Carranza ANODE REBUILDER Unavailable [phone] Andressa Ruiz-C Unavailable Ashlyn Storm RN Unavailable Rubén Gunter [facility] Unavailable Andressa Ruiz-C Unavailable Suzan Harry MD Unavailable [phone] Yasmeen Powers MD Unavailable Yasmeen Powers MD Unavailable [phone] Encounter Details Date Type Department Care Team (Late st Contact Info) Description 08/24/2016 External Order Results [facility] 909 [place] [address] Social History Tobacco Use Types [...] External Lab Result (08/13/2016 9:40 AM CDT) [facility] Tacrolimus(FK-5 06) (External) 6.8(L) 12 - 15 [...] documented as of this encounter Care Teams Streetcar Operator Relationship Specialty Start Date End Date Rubén Boyle MD PCP - General Family Practice 03/08/16 Pamela Blanco NP [facility] [address] [place], [place] [address] Referring Physician 07/13/16 Pedro Segura MD [facility] [address] [place], [place] [address] Nephrology 10/03/16 Freddy Craft MD 516 [facility] [address] [place] [address] Assigned Gastroenterology Provider 02/08/20 Abdifatah Van MD [address] [place] [address] Assigned Nephrology Provider 07/13/20 11/07/23 Nicole Carranza NP [address] [place], [place] [address]85 Assigned Heart and Vascular Provider 01/09/22 Andressa Ruiz PA-C [address] [facility] [address] 8[address] [place], [place] 140235 Physician Change Management Lead Endocrinology, Diabetes, and Metabolism 03/01/22 Ashlyn Storm, RN [facility] 711 [place] [address] Registered Nurse 03/03/22 09/15/22 Rubén Gunter [facility] 909 [place] [address] Assigned MTM Pharmacist 02/27/22 Andressa Ruiz PA-C 420 [facility] 803 [place], [place] 222205 Assigned Endocrinology Provider 03/13/22 09/07/23 Suzan Harry MD 420 [place], [place] 421365 Nephrology 06/30/23 Yasmeen Powers MD 500 [place], [place] 468495 Nephrology 10/24/23 Yasmeen Powers MD 500 [place], [place] 447415 Assigned Nephrology Provider 11/08/23 documented as of this encounter
--- OUTSIDE RECORDS SUMMARY | 2024-01-17 16:49 | XMS_ITS | Encounter Summary ---
Author Organization [place] Address [address] [place] [address] Care Team Providers Care Eyeglass Maker Name Role Phone Rubén Boyle MD Primary Care Provider Pamela Blanco CUSTOMER CONTACT SALES ASSOCIATE Unavailable Pedro Segura MD Unavailable [phone] Freddy Craft MD Unavailable Abdifatah Van MD Unavailable Nicole Carranza CUSTOMER CONTACT SALES ASSOCIATE Unavailable [phone] Andressa Ruiz-C Unavailable Ashlyn Storm RN Unavailable [phone] Rubén Gunter [facility] Unavailable Andressa Ruiz-C Unavailable Suzan Harry MD Unavailable [phone] Yasmeen Powers MD Unavailable Yasmeen Powers MD Unavailable [phone] Encounter Details Date Type Department Care [...] documented as of this encounter Care Teams Eyeglass Maker Relationship Specialty Start Date End Date Rubén Boyle MD PCP - General Family Practice 03/08/16 Pamela Blanco NP [facility] [address] [place], [place] [address] Referring Physician 07/13/16 Pedro Segura MD [facility] [address] [place] [address] Nephrology 10/03/16 Freddy Craft MD 516 [facility] [address] [place] [address] Assigned Gastroenterology Provider 02/08/20 Abdifatah Van MD [address] [facility] [facility] [address] [place] [address] Assigned Nephrology Provider 07/13/20 11/07/23 Nicole Carranza NP 420 [facility] SE MMC [address] [place], [place] 829145 Assigned Heart and Vascular Provider 01/09/22 Andressa Ruiz PA-C 420 [facility] 803 [place] [address] Physician Drafting Clerk Endocrinology, Diabetes, and Metabolism 03/01/22 Ashlyn Storm, RN [facility] 711 [place] [address] Registered Nurse 03/03/22 09/15/22 Rubén Gunter [facility] [address] [place] [address] Assigned MTM Pharmacist 02/27/22 Andressa Ruiz PA-C 420 [facility] 803 [place] [address] Assigned Endocrinology Provider 03/13/22 09/07/23 Suzan Harry MD 420 [place] [address] Nephrology 06/30/23 Yasmeen Powers MD 500 [place] [address] Nephrology 10/24/23 Yasmeen Powers MD 500 [place] [address] Assigned Nephrology Provider 11/08/23 documented as of this encounter
--- OUTSIDE RECORDS SUMMARY | 2024-01-17 16:49 | XMS_ITS | Encounter Summary ---
Author Organization [place] Address [address] [place] [address] Care Team Providers Care Sulfide Head Operator Name Role Phone Rubén Boyle MD Primary Care Provider Pamela Blanco PHP WEB DEVELOPER Unavailable Perdo Segura MD Unavailable Freddy Craft MD Unavailable Abdifatah Van MD Unavailable Nicole Carranza PHP WEB DEVELOPER Unavailable [phone] Andressa Ruiz-C Unavailable [phone] Ashlyn Storm RN Unavailable [phone] Rubén Gunter [facility] Unavailable Andressa Ruiz-C Unavailable Suzan Harry MD Unavailable [phone] Yasmeen Powers MD Unavailable Yasmeen Powers MD Unavailable [phone] Encounter Details Date Type Department Care Team (Late st Contact Info) Description 08/25/2016 External Order Results [facility] 909 [place] [address] Social History Tobacco Use Types [...] documented as of this encounter Care Teams Sulfide Head Operator Relationship Specialty Start Date End Date Rubén Boyle MD PCP - General Family Practice 03/08/16 Pamela Blanco PHP WEB DEVELOPER [facility] [address] [place] [address] Referring Physician 07/13/16 Pedro Segura MD [facility] [address] [place] [address] Nephrology 10/03/16 Freddy Craft MD 516 [facility] 2A [place], [place] [address] Assigned Gastroenterology Provider 02/08/20 Abdifatah Van MD 717 [facility] [address] 353 [place], [place] 205434 Assigned Nephrology Provider 07/13/20 11/07/23 Nicole Carranza NP 420 [facility] 508 [place], [place] 181345 Assigned Heart and Vascular Provider 01/09/22 Andressa Ruiz PA-C 420 [facility] 803 [place], [place] [address] Physician Gwot Ia/Ilo Intelligence Support Endocrinology, Diabetes, and Metabolism 03/01/22 Ashlyn Storm, RN [facility] 711 [place], [place] [address] Registered Nurse 03/03/22 09/15/22 Rubén Gunter [facility] 909 [place], [place] [address] Assigned MTM Pharmacist 02/27/22 Andressa Ruiz PA-C 420 [facility] 803 [place] [address] Assigned Endocrinology Provider 03/13/22 09/07/23 Suzan Harry MD [address] [place] [address] Nephrology 06/30/23 Yasmeen Powers MD 500 [place], [place] 605155 Nephrology 10/24/23 Yasmeen Powers MD 500 [place], [place] 985815 Assigned Nephrology Provider 11/08/23 documented as of this encounter
--- OUTSIDE RECORDS SUMMARY | 2024-01-17 16:49 | XMS_ITS | Encounter Summary ---
Author Organization [place] Address [address] [place] [address] Care Team Providers Care Medical Support Specialist Name Role Phone Rubén Boyle MD Primary Care Provider Pamela Blanco REQUIREMENTS ANALYST Unavailable Pamela Balnco REQUIREMENTS ANALYST Unavailable [phone] Pedro Segura MD Unavailable [phone] Freddy Craft MD Unavailable [phone] Abdifatah Van MD Unavailable Nicole Carranza REQUIREMENTS ANALYST Unavailable [phone] Andressa RuizC Unavailable Ashlyn Storm RN Unavailable Rubén Gunter [facility] Unavailable Andressa RuizC Unavailable Suzan Harry MD Unavailable [phone] Yasmeen Powers MD Unavailable Yasmeen Powers [...] as of this encounter Care Teams Medical Support Specialist Relationship Specialty Start Date End Date Rubén Boyle MD PCP - General Family Practice 03/08/16 Pamela Blanco NP Referring Physician Gastroenterology 03/08/16 07/12/16 Pamela Blanco NP [facility] [address] [place] [address] Referring Physician 07/13/16 Pedro Segura MD [facility] [address] [place] [address] Nephrology 10/03/16 Freddy Craft MD 516 [facility] [address] [place] [address] Assigned Gastroenterology Provider 02/08/20 Abdifatah Van MD [address] [facility] [address] [place] [address] Assigned Nephrology Provider 07/13/20 11/07/23 Nicole Carranza NP 420 [facility] 508 [place], [place] 948325 Assigned Heart and Vascular Provider 01/09/22 Andressa Ruiz PA-C 420 [facility] 803 [place], [place] 686465 Physician Inside Sales Specialist Endocrinology, Diabetes, and Metabolism 03/01/22 Ashlyn Storm, RN [facility] 711 [place], [place] 063174 Registered Nurse 03/03/22 09/15/22 Rubén Gunter [facility] [address] [place] [address] 474835 Assigned MTM Pharmacist 02/27/22 09/07/23 Andressa Ruiz PA-C 420 [facility] 803 [place], [place] 826155 Assigned Endocrinology Provider 03/13/22 09/07/23 Suzan Harry MD 420 [place], [place] 205695 Nephrology 06/30/23 Yasmeen Powers MD 500 [place], [place] 725675 Nephrology 10/24/23 Yasmeen Powers MD 500 [place], [place] 796445 Assigned Nephrology Provider 11/08/23 documented as of this encounter
--- OUTSIDE RECORDS SUMMARY | 2024-01-17 16:49 | XMS_ITS | Encounter Summary ---
Author Organization [place] Address [address] [place] [address] Care Team Providers Care Vocational Psychologist Name Role Phone Rubén Boyle MD Primary Care Provider Pamela Blanco DROSOPHERE OPERATOR Unavailable Pedro Segura MD Unavailable Freddy Craft MD Unavailable Abdifatah Van MD Unavailable Nicole Carranza DROSOPHERE OPERATOR Unavailable [phone] Andressa Ruiz-C Unavailable Ashlyn Storm RN Unavailable Rubén Gunter [facility] Unavailable Andressa Ruiz-C Unavailable Suzan Harry MD Unavailable [phone] Yasmeen Powers MD Unavailable [phone] Yasmeen Powers MD Unavailable [phone] Encounter Details Date Type Department Care Team (Late st Contact Info) Description 09/06/2016 External Order Results [facility] 909 [place] [address] Social History Tobacco Use Types [...] documented as of this encounter Care Teams Vocational Psychologist Relationship Specialty Start Date End Date Rubén Boyle MD PCP - General Family Practice 03/08/16 Pamela Blanco DROSOPHERE OPERATOR [facility] [address] [place], [place] 980737 Referring Physician 07/13/16 Pedro Segura MD [facility] [address] [place], [place] 6[address]267 Nephrology 10/03/16 Freddy Craft MD [address] [place] [address] 764425 Assigned Gastroenterology Provider 02/08/20 Abdifatah Van MD 717 [facility] [address] [place] [address] Assigned Nephrology Provider 07/13/20 11/07/23 Nicole Carranza NP 420 [facility] 508 [place] [address] Assigned Heart and Vascular Provider 01/09/22 Andressa Ruiz PA-C 420 [facility] 803 [place] [address] Physician Library Technical Assistant Endocrinology, Diabetes, and Metabolism 03/01/22 Ashlyn Storm RN [facility] 711 [place] [address] Registered Nurse 03/03/22 09/15/22 Rubén Gunter [facility] [address] [place] [address] Assigned MTM Pharmacist 02/27/22 Andressa Ruiz PA-C 420 [facility] 803 [place] [address] Assigned Endocrinology Provider 03/13/22 09/07/23 Suzan Harry MD 420 [place] [address] Nephrology 06/30/23 Yasmeen Powers MD 500 [place], [place] 644845 Nephrology 10/24/23 Yasmeen Powers MD 500 [place] [address] Assigned Nephrology Provider 11/08/23 documented as of this encounter
--- OUTSIDE RECORDS SUMMARY | 2024-01-17 16:49 | XMS_ITS | Encounter Summary ---
Author Organization [place] Address [address] [place] [address] Care Team Providers Care Brim Curler Name Role Phone Rubén Boyle MD Primary Care Provider Pamela Blanco ADJUNCT PROFESSOR OF LAW Unavailable Pamela Blanco ADJUNCT PROFESSOR OF LAW Unavailable Pedro Segura MD Unavailable Freddy Craft MD Unavailable Abdifatah Van MD Unavailable Nicole Carranza ADJUNCT PROFESSOR OF LAW Unavailable [phone] Andressa RuizC Unavailable [phone] Ashlyn Storm RN Unavailable [phone] Rubén Gunter [facility] Unavailable Andressa RuizC Unavailable Suzan Harry MD Unavailable [phone] Yasmeen Powers MD Unavailable Yasmeen Powers MD Unavailable [phone] Encounter Details Date Type Department Care Team (Late st Contact Info) Description 04/21/2016 [facility] Nephrology [address] [place] [address] Franco Burgess MD 717 [facility] [address] [place], [place] 947964 Social History Tobacco Use Types Packs/Day Years [...] documented as of this encounter Care Teams Brim Curler Relationship Specialty Start Date End Date Rubén Boyle MD PCP - General Family Practice 03/08/16 Pamlea Blanco NP Referring Physician Gastroenterology 03/08/16 07/12/16 Pamela Blanco NP [facility] [address] [place] [address] Referring Physician 07/13/16 Pedro Segura MD [facility] [address] [place] [address] Nephrology 10/03/16 Freddy Craft MD 516 [facility] [address] [place], [place] 938125 Assigned Gastroenterology Provider 02/08/20 Abdifatah Van MD [address] [place] [address] 353 [place], [place] 732784 Assigned Nephrology Provider 07/13/20 11/07/23 Nicole Carranza NP 420 [facility] 508 [place], [place] 979545 Assigned Heart and Vascular Provider 01/09/22 Andressa Ruiz PA-C 420 [facility] [address] [place] [address] 974775 Physician Grease Buffer Endocrinology, Diabetes, and Metabolism 03/01/22 Ashlyn Storm RN [facility] 711 [place], [place] 185744 Registered Nurse 03/03/22 09/15/22 Rubén Guntre [facility] [address] [place] [address] 596155 Assigned MTM Pharmacist 02/27/22 09/07/23 Andressa Ruiz PA-C [address] 017555 Assigned Endocrinology Provider 03/13/22 09/07/23 Suzan Harry MD 420 [place], [place] 499825 Nephrology 06/30/23 Yasmeen Powers MD [address] [place] [address] 503085 Nephrology 10/24/23 Yasmeen Powers MD 500 [place], [place] 026915 Assigned Nephrology Provider 11/08/23 documented as of this encounter
--- OUTSIDE RECORDS SUMMARY | 2024-01-17 16:49 | XMS_ITS | Encounter Summary ---
Author Organization [facility] Address [address] [place] [address] Care Team Providers Care Ebd Special Education Teacher Name Role Phone Rubén Boyle MD Primary Care Provider [phone] Pamela Blanco FLEET ASSISTANT Unavailable Pedro Segura MD Unavailable Freddy Craft MD Unavailable [phone] Abdifatah Van MD Unavailable Nicole Carranza FLEET ASSISTANT Unavailable [phone] Andressa Ruiz-C Unavailable Ashlyn Storm RN Unavailable [phone] Rubén Gunter [facility] Unavailable Andressa Ruiz-C Unavailable Suzan Harry MD Unavailable [phone] Yasmeen Powers MD Unavailable [phone] Yasmeen Powers MD Unavailable [phone] Encounter Details Date Type Department Care Team (Late st Contact Info) Description 09/22/2016 External Order Results [facility] Clinic [address] [place] [address] Social History Tobacco Use Types [...] documented as of this encounter Care Teams Ebd Special Education Teacher Relationship Specialty Start Date End Date Rubén Boyle MD PCP - General Family Practice 03/08/16 Pamela Blanco NP [address] [address] Referring Physician 07/13/16 Pedro Segura MD [facility] [address] [place] [address] Nephrology 10/03/16 Freddy Craft MD 516 [facility] 2A [place] [address] Assigned Gastroenterology Provider 02/08/20 Abdifatah Van MD 717 [facility] [address] [place] [address] Assigned Nephrology Provider 07/13/20 11/07/23 Nicole Carranza NP 420 [facility] 508 [place], [place] 997605 Assigned Heart and Vascular Provider 01/09/22 Andressa Ruiz PA-C 420 [facility] 803 [place], [place] [address]275 Physician Jumbo Operator Endocrinology, Diabetes, and Metabolism 03/01/22 Ashlyn Storm RN [facility] 711 [place] [address] Registered Nurse 03/03/22 09/15/22 Rubén Gunter [facility] [address] [place] [address] 019505 Assigned MTM Pharmacist 02/27/22 Andressa Ruiz PA-C 420 [facility] 803 [place], [place] 509775 Assigned Endocrinology Provider 03/13/22 09/07/23 Suzan Harry MD [address] [place] [address] Nephrology 06/30/23 Yasmeen Powers MD 500 [place], [place] 731675 Nephrology 10/24/23 Yasmeen Powers MD 500 [place], [place] 507625 Assigned Nephrology Provider 11/08/23 documented as of this encounter
--- OUTSIDE RECORDS SUMMARY | 2024-01-17 16:49 | XMS_ITS | Encounter Summary ---
Author Organization [facility] Address [address] [place] [address] Care Team Providers Care Sales Service Rep Name Role Phone Rubén Boyle MD Primary Care Provider [phone] Pamela Blanco LINSEED CAKE TRIMMER Unavailable Pedro Segura MD Unavailable Freddy Craft MD Unavailable Abdifatah Van MD Unavailable Nicole Carranaz LINSEED CAKE TRIMMER Unavailable [phone] Andressa Ruiz-C Unavailable Ashlyn Storm RN Unavailable Rubén Gunter [facility] Unavailable Andressa Ruiz-C Unavailable Suzan Harry MD Unavailable [phone] Yasmeen Powers MD Unavailable Yasmeen Powers MD Unavailable [phone] Encounter Details Date Type Department Care Team (Late st Contact Info) Description 09/17/[address] [facility] Transplant Clinic [address] [place] [address] Social History Tobacco Use Types [...] as of this encounter Care Teams Sales Service Rep Relationship Specialty Start Date End Date Rubén Boyle MD PCP - General Family Practice 03/08/16 Pamela Blanco LINSEED CAKE TRIMMER [facility] [address] [place], [place] 675887 Referring Physician 07/13/16 Pedro Segura MD [facility] [address] [place], [place] [id number] Nephrology 10/03/16 Freddy Craft MD 516 [facility] 2A [place] [address] Assigned Gastroenterology Provider 02/08/20 Abdifatah Van MD 717 [facility] [address] [place] [address] Assigned Nephrology Provider 07/13/20 11/07/23 Nicole Carranza NP 420 [facility] 508 [place] [address] Assigned Heart and Vascular Provider 01/09/22 Andressa Ruiz PA-C 420 [facility] 803 [place] [address] Physician Pie Filling Mixer Endocrinology, Diabetes, and Metabolism 03/01/22 Ashlyn Storm RN [facility] 711 [place], [place] [address] Registered Nurse 03/03/22 09/15/22 Rubén Gunter [facility] 909 [place] [address] Assigned MTM Pharmacist 02/27/22 Andressa Ruiz PA-C 420 [facility] 803 [place], [place] 153995 Assigned Endocrinology Provider 03/13/22 09/07/23 Suzan Harry MD 420 [place], [place] 767415 Nephrology 06/30/23 Yasmeen Powers MD 500 [place], [place] 877485 Nephrology 10/24/23 Yasmeen Powers MD 500 [place], [place] 625115 Assigned Nephrology Provider 11/08/23 documented as of this encounter
--- OUTSIDE RECORDS SUMMARY | 2024-01-17 16:49 | XMS_ITS | Encounter Summary ---
Author Organization [facility] Address [address] [place] [address] Care Team Providers Care Trestle Mainternance Laborer Name Role Phone Rubén Boyle MD Primary Care Provider Pamela Blanco SPECIAL EDUCATION PROFESSIONAL Unavailable Pedro Segura MD Unavailable [phone] Freddy Craft MD Unavailable Abdifatah Van MD Unavailable Nicole Carranza SPECIAL EDUCATION PROFESSIONAL Unavailable [phone] Andressa Ruiz-C Unavailable [phone] Ashlyn Storm RN Unavailable [phone] Rubén Gunter [facility] Unavailable Andressa Ruiz-C Unavailable Suzan Harry MD Unavailable [phone] Yasmeen Powers MD Unavailable [phone] Yasmeen Powers MD Unavailable [phone] Encounter Details Date Type Department Care Team (Latest Contact Info) Description 09/02/2016 External Order Results [facility] Transplant Clinic 909 [place] [address] History of liver transplant (H); [...] Analysis Source KATELYNN DRAIN FLUID [facility] Color Fluid Yellow [facility] Appearance Fluid Cloudy [facility] RBC Fluid << Do Not Report >> /uL [facility] WBC Fluid 1254 /uL [facility] % Neutrophils Fluid 82 % [facility] % Lymphocytes Fluid 1 % [facility] % [place]/Macro Fluid 16 % [facility] % Basophils Fluid 1 % [facility] 09/02/2016 2:45 PM CDT 09/02/2016 4:01 PM CDT Amie Vu MD LAB - BODY FLUIDS ORDERABLES [facility] [address] [phone] * Triglyceride Fluid (09/02/2016 2:45 PM CDT) Triglyceride Fluid Source KATELYNN DRAIN FLUID [facility] Triglyceride Fluid 362 mg/dL [facility] Comment: No reference ranges have been established. ??This result should be interpreted in the context of the patient's clinical condition and compared to simultaneous measurement in the patient's blood. ??Refer to Lab Guide for specific interpretive guidelines. Pleural fluid specimen (specimen) 09/02/2016 2:45 PM CDT 09/02/2016 4:01 PM CDT Aime Vu MD LAB - BODY FLUIDS ORDERABLES [id number] [place] [address] [phone] * (ABNORMAL) TXP External Lab Result (09/02/2016 [...] LABDE SCAN 09/02/2016 9:08 AM CDT Narrative SAMANTAH PFT - 09/02/2016 1:28 PM CDT Verified [...] documented as of this encounter Care Teams Trestle Mainternance Laborer Relationship Specialty Start Date End Date Rubén Boyle MD PCP - General Family Practice 03/08/16 Pamela Blanco, SPECIAL EDUCATION PROFESSIONAL [facility] [address] [place] [address] Referring Physician 07/13/[address] [facility] [address] [place] [address] Nephrology 10/03/16 Freddy Craft MD 516 [facility] [address] [place], [place] 205865 Assigned Gastroenterology Provider 02/08/20 Abdifatah Van MD [address] [facility] [address] [place], [place] 658734 Assigned Nephrology Provider 07/13/20 11/07/23 Nicole Carranza NP 420 [facility] 508 [place], [place] 515285 Assigned Heart and Vascular Provider 01/09/22 Andressa Ruiz PA-C 420 [facility] 803 [place], [place] 282835 Physician Camera Tuning Engineer Endocrinology, Diabetes, and Metabolism 03/01/22 Ashlyn Storm RN [facility] 711 [place], [place] 325384 Registered Nurse 03/03/22 09/15/22 Rubén Gunter [facility] 909 [facility] [address] [place], [place] 957455 Assigned MTM Pharmacist 02/27/22 Andressa Ruiz PA-C 420 [facility] 803 [place], [place] 238445 Assigned Endocrinology Provider 03/13/22 09/07/23 Suzan Harry MD 420 [place], [place] 048505 Nephrology 06/30/23 Yasmeen Powers MD 500 [place], [place] 690645 Nephrology 10/24/23 Yasmeen Powers MD 500 [place] [address] Assigned Nephrology Provider 11/08/23 documented as of this encounter
--- OUTSIDE RECORDS SUMMARY | 2024-01-17 16:49 | XMS_ITS | Encounter Summary ---
Author Organization [facility] Address [address] [place] [address] Care Team Providers Care Bounty Hunter Name Role Phone Rubén Boyle MD Primary Care Provider [phone] Pamela Blanco MANAGER APPLE Unavailable Pedro Segura MD Unavailable Freddy Craft MD Unavailable [phone] Abdifatah Van MD Unavailable Nicole Carranza MANAGER APPLE Unavailable [phone] Andressa Ruiz-C Unavailable Ashlyn Storm RN Unavailable Rubén Gunter [facility] Unavailable Andressa Ruiz-C Unavailable Suzan Harry MD Unavailable [phone] Yasmeen Powers MD Unavailable Yasmeen Powers MD Unavailable [phone] Encounter Details Date Type Department Care Team (Late st Contact Info) Description 08/17/2016 External Order Results [facility] Trans[facility] Clinic 909 [place] [address] Social History Tobacco Use Types [...] documented as of this encounter Care Teams Bounty Hunter Relationship Specialty Start Date End Date Rubén Boyle MD PCP - General Family Practice 03/08/16 Pamela Blanco MANAGER APPLE [facility] [address] [place] [address] Referring Physician 07/13/16 Pedro Segura MD [facility] [address] [place], [place] 747227 Nephrology 10/03/16 Freddy Craft MD 516 [facility] 2[facility] [place], [place] 603475 Assigned Gastroenterology Provider 02/08/20 Abdifatah Van MD 717 [facility] [address] [place], [place] [address]704 Assigned Nephrology Provider 07/13/20 11/07/23 Nicole Carranza NP 420 [facility] 508 [place], [place] 492315 Assigned Heart and Vascular Provider 01/09/22 Andressa Ruiz PA-C 420 [facility] 803 [place], [place] 416325 Physician Confectionery Maker Endocrinology, Diabetes, and Metabolism 03/01/22 Ashlyn Storm, RN [facility] 711 [place], [place] 651154 Registered Nurse 03/03/22 09/15/22 Rubén Gunter [facility] 909 [place] [address] Assigned MTM Pharmacist 02/27/22 Andressa Ruiz PA-C 420 [facility] 803 [place] [address] Assigned Endocrinology Provider 03/13/22 09/07/23 Suzan Harry MD 420 [place] [address] Nephrology 06/30/23 Yasmeen Powers MD 500 [place] [address] Nephrology 10/24/23 Yasmeen Powers MD 500 [place] [address] Assigned Nephrology Provider 11/08/23 documented as of this encounter
--- OUTSIDE RECORDS SUMMARY | 2024-01-17 16:50 | XMS_ITS | Clinical Summary ---
Author Organization [facility] Address [address] [place] [address] Care Team Providers Care Plate Printer Name Role Phone Rubén Boyle MD Primary Care Provider Source Comments You are receiving this document as you are listed as the primary care provider,follow-up provider, or the patient has been referred to you for consultation.This is in compliance with the Medicare and[facility] EHR Incentive Program,which states Providers who transition their patient to another setting of careor provider of care or refers their patient to another provider of care shouldprovide summary care record for each transition of care or referral. [facility] Allergies No known active allergies Medications Medication [...] Comments Blood Pressure 112/66 03/25/2016 10:51 AM CUSTOMER ACCOUNT TECHNICIAN Pulse 70 03/25/2016 10:51 AM CUSTOMER ACCOUNT TECHNICIAN Temperature 36.7 ??C (98.1 ??F) 03/19/2016 3:05 PM CS T Respiratory Rate 16 03/25/2016 10:5 1 AM CUSTOMER ACCOUNT TECHNICIAN Oxygen Saturation 99% 03/25/2016 10: 51 AM CUSTOMER ACCOUNT TECHNICIAN Inhaled Oxygen Concentration - - Weight 121.4 kg (267 lb 11.2 oz) 2015 10:50 AM CUSTOMER ACCOUNT TECHNICIAN Height 177.8 cm (5' 10) 03/02/2016 1:12 PM CUSTOMER ACCOUNT TECHNICIAN Body Mass Index 38.41 03/02/2016 1:12 PM CUSTOMER ACCOUNT TECHNICIAN Plan of Treatment Health Maintenance Due Date [...] 01/10/2018, 02/10/2016 COVID-19 Vaccine ( - season) 2023 Influenza (#1) 2023 01/10/2018, 11/17, 01/24/2016, Additional history exists RSV (1 - 1-dose 75+ series) 2027 Hep C Screening (Preventive Services) Completed 02/06/2016 [...] / GFR STAT 03/19/2016 11:5 8 AM CUSTOMER ACCOUNT TECHNICIAN Chronic kidney disease, stage III (moderate) (HRC) HEPATITIS C ANTIBODY, WITH REFLEX Specified Time 02/06/2016 5:44 AM CDT from Last 3 Months or Most Recently Relevant to Health Maintenance Results * (ABNORMAL) Creatinine - today (03/19/2016 11:58 AM CUSTOMER ACCOUNT TECHNICIAN) Creatinine Serum 1.43(H) 0.73 - 1.18 mg/dL PN SOFT Est GFR Am >60 >60 mL/min/1.7 3m2 PN SOFT Est GFR Non-Afr Am 52(L) >60 mL/min/1.7 3m2 PN SOFT Comment: Normal>60, moderate decrease 30 - 59, severe decrease 15 - 29, renal failure <15 mL/min/1.73 m2 NOTE: ??Choose the eGFR result above appropriate for the race of the patient. 03/19/2016 11:5 8 AM CUSTOMER ACCOUNT TECHNICIAN 03/19/2016 12:01 PM CUSTOMER ACCOUNT TECHNICIAN Narrative PN SOFT - 03/19/2016 12:25 PM CUSTOMER ACCOUNT TECHNICIAN [place] [address] CLIA number [id number] Pedro Bundy MD LAB_1 Performing Organization Address [facility] de Phone Number [employer] [address] [place] [address] * Hepatitis C Virus Anette In-House (02/06/2016 5:44 AM CDT) Hepatitis C Antibody Nonreactive Nonreactive PN SOFT 02/06/2016 5:44 AM CDT 02/06/2016 6:13 AM CDT Narrative PN SOFT - 02/06/2016 7:03 [place] [address] CLIA number [id number] Prateek Langley MD LAB_1 Performing Organization Address [facility] de Phone Number [facility] [address] [place] [address] from Last 3 Months or Most Recently Relevant to Health Maintenance Advance Directives Documents on File Type Date Recorded Patient Pie Filler Expl anation Advance Directive/Living Will/Durable Power of Attny on file/POLST PN 02/04/2016 12:52 PM * Full Code (Latest Code Status on File) Date Activated Date Inactivated Comments 02/03/2016 5:53 PM 02/10/2016 6:17 PM Care Teams Plate Printer Relationship Specialty Start Date End Date Rubén Boyle MD [address] [place] [address] PCP - General 09/29/15
--- OUTSIDE RECORDS SUMMARY | 2024-01-17 16:50 | XMS_ITS | Clinical Summary ---
Author Organization [facility] Address [place], [place] [address] Care Team Providers Care Medical Charge Entry Specialist Name Role Phone Nikole Gibbs Trisha RN Unavailable Rubén Boyle MD Primary Care Provider + [...] unspecified 05/09/2015 Issue of repeat prescription 05/08/2015 Overview (05/08/2015): Painful Diabetic neuropathy. Uses [place] 7.5 mg - roughly 3 per day [...] 01/22/2016 Issue of repeat prescriptions 11/18/2010 05/08/2015 Overview (11/18/2010): Diabetic neuropathy - taking Vicodin ES Major depression, single episode 11/11/2010 01/14/2017 [facility] Care Contract 02/04/2010 012 Overview (02/04/2010): This patient, PCP and Care Guide have signed a letter agreeing on a set of goals for diabetes, hypertension and/or CHF. Please look for [facility] Care Goal Contract in Chart Review/ Letters and support this effort. Please direct questions to Care Guide Edilma Recinos Phone number [phone] Type 2 diabetes, HbA1C goal < 8% 02/04/2010 12/29/2015 Diabetic neuropathy 02/04/2010 02/24/20 16 Hypertension 08/05/2009 11/21/2017 Diverticulosis of colon (wit hout mention of hemorrhage) 08/14/2008 05/09/2015 Obesity, unspecified 09/26/2006 016 Osteoarthrosis, unspecified whether generalized or localized, unspecified site 08/01/2006 05/09/2015 Overview (08/14/2008): HIPS PABLO Left Other and unspecified hyperlipidemia 08/01/2006 05/09/2015 Polyneuropathy in diabetes(357.2) 08/01/2006 02/04/2010 DIABETES 04/18/1994 02/04/2010 Encounters Date Type Department Care Team Description 12/16/2023 Lab Requisition [facility] [phone] Cherelle Roman MD 12/16/2023 Lab Requisition [facility] [phone] Cherelle Roman MD from Last 3 Months Immunizations Name [...] booster 11/11/2020 11/11/2010 (Comp leted outside of [facility]), 07/31/2010 Depression screening for age 12+ 03/29/2023 03/29/2022, 03/26/2022, 04/19/2018, Additional history exists COVID-19 vaccine series ( season) 2023 05/31/2023, 09/17/2021, 01/12/2021, Additional history exists Influenza for age 65+ 12/18/2023 01/10/2018 , 12/14/2016, 01/24/2016, Additional history exists Lipids for age 45-75 03/19/2024 03/19/2019, 03/16/2018, 09/20/2016, Additional history exists Tdap Completed 07/31/2010 AAA screening age 65-74 Completed 06/24/2022, 01/06 Procedures Procedure Name Priority Date/Time Associated Diagnosis Comments LAB TRACKING EVENT Routine 12/15/2023 10 :46 AM CDT PATH TISSUE EXAM Routine 12/15/2023 10:[address] ABDOMEN PELVIS WO STAT 06/24/2022 2:30 PM SHORE WORKING SUPERVISOR LIPID PANEL Routine 03/19/2019 9:30 AM SHORE WORKING SUPERVISOR COLONOSCOPY SCREENING Routine 09/20/2013 Colon polyps from Last 3 Months or Most Recently Relevant to Health Maintenance Results * LAB TRACKING EVENT (12/15/2023 10:46 AM CDT) Other (Other) Client Collect / Unknown 12/15/2023 10:46 AM CDT 12/16/2023 12:35 AM CDT Cherelle Roman MD LAB BILL ONLY [facility] [address] [place] [address], * PATH TISSUE EXAM (12/15/2023 10:46 AM CDT) Case Report Pathology Report ?Case: [id number] ? Authorizing Provider: ??Cherelle Roman MD ?Collected: ? 12/15/2023 1046 ? Ordering Location: ? [facility] ?Received: ?12/16/2023 08 ? Pathologist: ? Bessy, Ulysses Jimmy ? IV, MD ? Specimens: ?? A) - Distal Esophagus Biopsy ? B) - Mid Esophagus Biopsy ? 12/20/2023 9:11 AM CDT [facility] Final Diagnosis A) ESOPHAGUS, DISTAL, BIOPSY: 1. Normal esophageal squamous mucosa 2. Negative for reflux changes and eosinophilic esophagitis 3. Negative for columnar mucosa B) ESOPHAGUS, MID, BIOPSY: 1. Normal esophageal squamous mucosa 2. Negative for reflux changes and eosinophilic esophagitis 3. Negative for columnar mucosa 12/20/2023 9:11 AM CDT [facility] Clinical Information Mr. Mora is a 73 y.o. who presents for follow-up of reflux esophagitis. EGD findings include: -Normal exam 12/20/2023 9:11 AM CDT [facility] Gross Description A) Received in formalin are 3 camp mucosal fragments ranging from 2 mm to 3 mm in greatest dimension, which are entirely submitted in one cassette. It is labeled with the patient's name and designated distal esophagus. B) Received in formalin are 4 camp mucosal fragments ranging from 1 mm to 9 mm in greatest dimension, which are entirely submitted in one cassette. It is labeled with the patient's name and designated midesophagus. Sera Aurora Henderson 12/16/2023 11:20 AM 12/20/2023 9:11 AM CDT [facility] Microscopic Description The final diagnosis is based on microscopic examination of appropriate sections of all specimens. 12/20/2023 9:11 AM CDT [facility] Additional Information Interpreted at [facility] - [address], [place] [address] 12/20/2023 9:11 AM CDT [facility] Other (Distal Esophagus Biopsy) 12/15/2023 10:46 AM CDT 12/16/2023 8:21 AM CDT Specimen (specimen) (Mid Esophagus Biopsy) 12/15/2023 10:46 AM CDT 12/16/2023 8:21 AM CDT Cherelle Roman MD PATHOLOGY/CYTOLOGY [facility] [address] [place] [address], [place] * CT ABDOMEN PELVIS WO (06/24/2022 2:30 PM SHORE WORKING SUPERVISOR) Anatomical Region Laterality Modality Abdomen, Pelvis, AORTA, LIVER, SPLEEN Computed Tomography 06/24/2022 3:18 PM SHORE WORKING SUPERVISOR Narrative 06/24/2022 3:18 PM SHORE WORKING SUPERVISOR For Patients: ??As a result of the Cures Act, medical imaging exams and procedure [...] 06/24/2022 3:18:29 PM (Electronically Signed) Debi Alcantar CLEANER ASSISTANT CT * (ABNORMAL) LIPID PANEL (03/19/2019 9:30 AM SHORE WORKING SUPERVISOR) CHOLESTEROL,TOTAL 179 100 - 199 mg/dL 03/19/2019 9:59 AM SHORE WORKING SUPERVISOR [facility] TRIGLYCERIDES 195(H) <150 mg/dL 03/19/2019 9:59 AM SHORE WORKING SUPERVISOR [facility] HDL CHOLESTEROL 43 >40 mg/dL 9 9:59 AM SHORE WORKING SUPERVISOR [facility] NON-HDL CHOLESTEROL 136 <145 mg/dl 03/19/2019 9:59 AM SHORE WORKING SUPERVISOR [facility] CHOL/HDL RATIO 4.16 <4.50 03/19/2019 9:59 AM SHORE WORKING SUPERVISOR [facility] LDL CHOLESTEROL 97 <=130 mg/dL 03/19/2019 9:59 AM SHORE WORKING SUPERVISOR [facility] PROVIDER ORDERED STATUS FASTING 03/19/2019 9:59 AM SHORE WORKING SUPERVISOR [facility] Blood BLOOD SPECIMEN / Unknown Butterfly / Unknown 03/19/2019 9:30 AM SHORE WORKING SUPERVISOR 03/19/2019 9:35 AM SHORE WORKING SUPERVISOR Freddy Dumont MD CHEMISTRY [address] [address] * COLONOSCOPY SCREENING (09/20/2013) Colby Kennedy MD GI PROCEDURE ORD from Last 3 Months or Most Recently Relevant to Health Maintenance Additional Health Concerns Infection Onset Date Last Indicated CLOSTRIDIUM DIFFICILE Comment:[facility] 09/22/2023 09/22/2023 Advance Directives Documents on File Type Date Recorded Patient Elementary Math Tutor Expl anation Healthcare Directive 02/25/2016 12:00 AM [...] Code Status Discussion: Not Discussed Care Teams Medical Charge Entry Specialist Relationship Specialty Start Date End Date Rubén Boyle MD [address] [place] [address] PCP - General Family Practice 09/08/21 Nikole Gibbs RN [address] [place] [address] Cost Accountant 12/20/13
--- OUTSIDE RECORDS SUMMARY | 2024-01-17 16:50 | XMS_ITS ---
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 Director Product Management [phone] N/A Aime Vu MD Transplant Surgeon [phone] [email or web address] Events Post-Transplant Pre-Transplant Admitted: 07/02/2016 Referred: 06/15/2016 Transplanted: 07/11/2016 Evaluation began: 7 Discharged: 11/16/2016 Committee: 06/15/2016 Center waitlisted: 7 Dialysis History Dialysis History Start End Type Comments Center 05/05/2016
--- OUTSIDE RECORDS SUMMARY | 2024-01-17 16:50 | XMS_ITS | Clinical Summary ---
Author Organization [facility] Address [address] [place] [address] Care Team Providers Care Credit Administration Officer Name Role Phone Elsewhere, Pcp Primary Care Provider Unavailabl e Source Comments Patient records contain information from all sites at [facility]. For routine questions regarding patient records, call [phone] during business hours, M-F 8:00 AM - 5:00 PM Central Time. Record requests for emergency care only can be directed to [phone] at any time.[facility] Allergies Active Allergy Reactions Criticality Noted [...] Gastroesophageal Reflux Disease Without Esophagi tis 01/26/2016 Group Home Use Of Insulin Active 12/29/2015 Hyperlipidemia 05/09/2015 Polyp Colon 05/10/2013 Resolved Problems Problem Noted Date Diagnosed Date Resolved Date Hemorrhage Gastrointestinal 06/19/2022 12/06/2022 Hepatic Encephalopathy 02/03/201612/06 Alcoholic Cirrhosis Of Liver Without Ascites 6 12/06/2022 Presence Of Left Artificial Hip Joint 05/09/2015 12/06/2022 Immunizations Name Administration Dates Next Due Influenza TIV (IM) 01/10/2018, 7,01/24/2016,2012,01/14/2012,01/27/2011,02/04/2010,0 01/14/2009,02/06/2008,02/27/2007, 006,03/03/2005,02/24/2004,02/13/2003 Influenza, Injectable, Quadrivalent 01/24/2016 Influenza, Quadrivalent, Adj uvanted, Preservative Free 01/12/2022,01/12/2021 Influenza, Seasonal, Injectable 01/26/20 17,02/03/2013,01/14/2012,2009,01/14/2009,02/06/2008,02/27/2007,1 05/03/2004,02/24/2004,02/13/2003 Influenza, Unspecified 02/03/2013,2011,01/27/2011,2009,01/14/2009,02/06/2008,02/27/2007,1 05/03/2004,02/24/2004,02/13/2003 PCV13 01/10/2018 PPSV23 02/10/2016,07/24/2010 RZV (SHINGRIX) 08/01/2017 Tdap 07/31/2010 influenza trivalent high dos e (HD)(PF) 02/05/2020,03/16/2019,01/24/2016 influenza trivalent vaccine (6 months and older)(PF) 01/27/2011 influenza vaccine (FLUBLOK) (18 years or older) [...] 12/14/2022, 11/0 12/2021, 07/11/2018, Additional history exists Opioid Use Disorder (OUD) Screening 12/07/2023 COVID-19 Vaccine ( season) 2023 05/31/2023, 09/17/2021, 01/12/2021, Additional history exists Creatinine Level (Kidney Function Test) 12/25/2023 12/24/2022, [...] Romero APRN C.N.P. LAB BLOOD A DD-ON Performing Organization Address City/[facility]/ZIP Co de Phone Number [facility] [address] [place] [address], [facility] NPRG [place] [address] [place] [address] * (ABNORMAL) Hemoglobin A1c (12/14/2022 7:57 AM [...] Romero APRN C.N.P. LAB BLOOD A DD-ON Performing Organization Address City/[facility]/ZIP Co de Phone Number [facility] [address] [place] [address], [facility] [place] [address] [place] [address] from Last 3 Months or Most Recently Relevant to Health Maintenance Advance Directives For more information, please contact: [phone] Documents on File Type Date Recorded Patient Insurance Licensing Supervisor Expl anation Advance Directives 12/06/2022 12:[address] Care Teams Credit Administration Officer Relationship Specialty Start Date End Date Elsewhere, Pcp PCP - General Internal Medicine 01/06/23
--- OUTSIDE RECORDS SUMMARY | 2024-01-17 16:50 | XMS_ITS ---
Author Organization [place] Address [address] [place] [address] Care Team Providers Care Newspaper Manager Name Role Phone Rubén Boyle MD Primary Care Provider [phone] Pamela Blanco PRECIPITATOR SUPERVISOR Unavailable [phone] Pedro Segura MD Unavailable Freddy Craft MD Unavailable [phone] Nicole Carranza PRECIPITATOR SUPERVISOR Unavailable [phone] Andressa Ruiz-C Unavailable Suzan Harry MD Unavailable [phone] Yasmeen Powers MD Unavailable [phone] Yasmeen Powers MD Unavailable [phone] Transplant Episode Liver Recipient [facility] [place] ([place], [place]) - [facility] Organ Received: Liver Transplanted on 07/10/2016 Marked as Active Follow-up on 07/10/2016 Liver CoordinatorMalinda Alves RN Phone: N/A Fax: N/A Email: N/A [place] 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 [...] Coordinator N/A N/A N/A Freddy Dumont MD Photo Intern [phone] N/A Pamela Blanco NP Referring Physician [phone] N/A Aime Vu MD Transplant Surgeon [phone] [email or web address] Events Post-Transplant Pre-Transplant Admitted: 07/02/2016 Referred: 03/08/2016 Transplanted: 07/10/2016 Evaluation began: 6 Discharged: 08/02/2016 Committee: 07/06/2016 Center waitlisted: 7 Dialysis History Dialysis History Start End Type Comments Center 05/05/2016
--- OUTSIDE RECORDS SUMMARY | 2024-01-17 16:50 | XMS_ITS | Referral Summary ---
Author Organization [facility] Address [address] [place] [address] Care Team Providers Care Code Enforcement Officer Name Role Phone Elsewhere, Pcp Primary Care Provider Unavailabl e Source Comments Patient records contain information from all sites at [facility]. For routine questions regarding patient records, call [phone] during business hours, M-F 8:00 AM - 5:00 PM Central Time. Record requests for emergency care only can be directed to [phone] at any time.[facility] Allergies Active Allergy Reactions Criticality Noted Date [...] Gastroesophageal Reflux Disease Without Esophagi tis 01/26/2016 Prison Use Of Insulin Active 12/29/2015 Hyperlipidemia 05/09/2015 [...] 12/24/2022 1:45 PM CDT Mary Romero APRN, C.N.P. LAB BLOOD A DD-ON [facility] [address] [place] [address], [facility] NPRG [place] [address] [place] [address] * (ABNORMAL) Hemoglobin A1c (12/14/2022 7:57 AM CDT) Hemoglobin A1c, B 6.2(H) 4.2 - 5.6 % 12/14/2022 8:54 AM CDT NPRG Comment: Hemoglobin A1c values of 5.7-6.4 percent indicate an increased risk for developing diabetes mellitus. In diabetic patients, HbA1c goals should be discussed with healthcare provider. Blood (Blood, Venous) 12/14/2022 7:57 AM CDT 12/14/2022 8:25 AM CDT Mary Romero APRN, C.N.P. LAB BLOOD A DD-ON [facility] [address] [place] [address], [facility] NPRG [place] [address] [place] [address] from Last 3 Months or Most Recently Relevant to Health Maintenance Advance Directives For more information, please contact: [phone] Documents on File Type Date Recorded Patient Director Of Category Management Expl anation Advance Directives 12/06/2022 12:[address] Care Teams Code Enforcement Officer Relationship Specialty Start Date End Date Elsewhere, Pcp PCP - General Internal Medicine 01/06/23
--- OUTSIDE RECORDS SUMMARY | 2024-01-17 16:50 | XMS_ITS ---
Author Organization [facility] Address [address] [place] [address] Care Team Providers Care Infrastructure Technician Name Role Phone Unavailable Unavailable Unavailable Surgery Details Not on file Complications Check Surgery Details section. Procedure Estimated Blood Loss Check Surgery Details section. Procedure Findings Check Surgery Details section. Procedure Specimens Taken Check Surgery Details section.
--- NOTE | 2024-01-17 16:53 | ED_ITS ---
HPI - General Adult General Date Seen: 01/17/24 Chief complaint: Abdominal Pain Stated complaint: Ill Time Seen by Provider: 01/17/24 16:51 History of Present Illness HPI narrative: History limited. Patient seems mildly confused. He is able to answer some questions appropriately. He struggles mildly with other questions. for instance, he cannot remember his primary care provider's name. 73 yo M with h/o renal transplant, liver transplant (on azathioprine and tacrolimus), CHF, DM2, HTN, h/o recurrent C diff, esophagitis, GERD, BPH, hypertension, history of mitral regurgitation, history of alcoholism, TAVR, presenting to the ER today by EMS from his home. He had his flu shot last Tuesday. He woke up Tuesday morning with symptoms of diarrhea and abdominal pain. He has had multiple episodes of watery diarrhea ever since then. He says ?many? episodes when I ask him how much she has been having diarrhea. He is not able to count. He has had abdominal pain. He gestures that it is mostly in the middle of his abdomen cut really can not localize it more than that. He can not really describe any will exacerbating or alleviating factors to the pain. He says he has had a fever because is temperature is been measuring 98. I can came to clarify why he thinks 98 is fever. Perhaps he has a normally low core body temperature? He has been urinating less than normal but not having any dysuria or hematuria. No blood in his stool. He has been nauseous since Tuesday. He has had very little oral intake. Today started vomiting he has had 3 or 4 episodes of brownish emesis. No blood. He is feeling weak today. As much as I can gather, he called the ambulance because he is feeling weaker. In his chart mentions that he has recurrent C diff, but he is not able to recall any previous episodes. Related Data Home Medications ?Medication ?Instructions ?Recorded ?Confirmed aspirin 81 mg tablet,delayed 81 mg PO DAILY 10/22/21 12/13/23 release (Adult Aspirin Regimen) azathioprine 50 mg tablet 150 mg PO DAILY 03/01/23 12/13/23 ergocalciferol (vitamin D2) 50 mcg 50 mcg PO DAILY 09/12/23 12/13/23 (2,000 unit) tablet tacrolimus 1 mg capsule, 3 mg PO Q12H 12/13/23 12/13/23 immediate-release Previous Rx's ?Medication ?Instructions ?Recorded famotidine 40 mg tablet 40 mg PO QHS #90 tabs 04/06/23 atorvastatin 20 mg tablet 20 mg PO HS #90 tabs 06/02/23 oxycodone 5 mg tablet 5 mg PO Q8H PRN pain #60 tabs 09/27/23 glipizide 5 mg tablet 5 mg PO DAILYWM #90 tabs 10/13/23 citalopram 20 mg tablet 20 mg PO DAILY #90 tabs 11/03/23 gabapentin 300 mg capsule 300 mg PO BID #180 caps 11/15/23 omeprazole 20 mg capsule,delayed 20 mg PO BID 30 days #180 caps 12/13/23 release Allergies Allergy/AdvReac Type Severity Reaction Status Date / Time phytonadione (vitamin K1) Allergy Intermediate Unknown Verified 12/13/23 15:33 [facility] Medical History (Updated 01/17/24 @ 20:48 by Black Landis MD) CHF (congestive heart failure) ?I50.9 - Heart failure, unspecified (ICD-10) BPH (benign prostatic hyperplasia) ?N40.0 - Benign prostatic hyperplasia without lower urinary tract symptoms (ICD-10) Adult failure to thrive ?R62.7 - Adult failure to thrive (ICD-10) HTN (hypertension) ?I10 - Essential (primary) hypertension (ICD-10) Type 2 diabetes mellitus, without long-term current use of insulin ?E11.9 - Type 2 diabetes mellitus without complications (ICD-10) Discharge planning issues ?Z75.8 - Other problems related to medical facilities and other health care (ICD-10) Abnormal CT scan, kidney ?R93.429 - Abnormal radiologic findings on diagnostic imaging of unspecified kidney (ICD-10) Esophageal thickening ?K22.89 - Other specified disease of esophagus (ICD-10) Recurrent colitis due to Clostridioides difficile ?A04.71 - Enterocolitis due to Clostridium difficile, recurrent (ICD-10) Major depression, recurrent ?F33.9 - Major depressive disorder, recurrent, unspecified (ICD-10) Chronic right hip pain ?M25.551 - Pain in right hip (ICD-10) ?G89.29 - Other chronic pain (ICD-10) Hypomagnesemia ?E83.42 - Hypomagnesemia (ICD-10) Penile ulcer ?N48.5 - Ulcer of penis (ICD-10) Low back pain ?M54.50 - Low back pain, unspecified (ICD-10) History of non-anemic folic acid deficiency ?Z86.39 - Personal history of other endocrine, nutritional and metabolic disease (ICD-10) History of colonic polyps (05/10/13) ?Z86.010 - Personal history of colonic polyps (ICD-10) Folic acid deficiency (01/22/16) ?E53.8 - Deficiency of other specified B group vitamins (ICD-10) Erectile dysfunction ?N52.9 - Male erectile dysfunction, unspecified (ICD-10) Controlled substance agreement signed (04/19/18) ?Z79.899 - Other intermediate (current) drug therapy (ICD-10) Pancytopenia ?D61.818 - Other pancytopenia (ICD-10) Chronic kidney disease (CKD) ?N18.9 - Chronic kidney disease, unspecified (ICD-10) History of ETOH abuse ?F10.11 - Alcohol abuse, in remission (ICD-10) Mitral regurgitation ?I34.0 - Nonrheumatic mitral (valve) insufficiency (ICD-10) Diabetic neuropathy ?E11.40 - Type 2 diabetes mellitus with diabetic neuropathy, unspecified (ICD-10) GERD (gastroesophageal reflux disease) ?K21.9 - Gastro-esophageal reflux disease without esophagitis (ICD-10) Hyperlipidemia ?E78.5 - Hyperlipidemia, unspecified (ICD-10) Diverticulosis ?K57.90 - Diverticulosis of intestine, part unspecified, without perforation or abscess without bleeding (ICD-10) Surgical History (Updated 09/24/23 @ 00:01 by Background Daemon) Liver transplant recipient ?Z94.4 - Liver transplant status (ICD-10) Kidney transplant recipient ?Z94.0 - Kidney transplant status (ICD-10) History of coronary artery stent placement ?Z95.5 - Presence of coronary angioplasty implant and graft (ICD-10) S/P TAVR (transcatheter aortic valve replacement) ?Z95.2 - Presence of prosthetic heart valve (ICD-10) History of liver transplant (07/10/16) ?Z94.4 - Liver transplant status (ICD-10) History of decompression of ulnar nerve (1979) ?Z98.890 - Other specified postprocedural states (ICD-10) History of cataract extraction (2018) ?Z98.49 - Cataract extraction status, unspecified eye (ICD-10) 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) ?Z96.643 - Presence of artificial hip joint, bilateral (ICD-10) History of hip replacement ?Z96.649 - Presence of unspecified artificial hip joint (ICD-10) Hx of hernia repair ?Z98.890 - Other specified postprocedural states (ICD-10) ?Z87.19 - Personal history of other diseases of the digestive system (ICD-10) Family History Father Diabetes Coronary artery disease Sister Diabetes Social History Narrative: He lives in [place]. He lives by himself. He functions independently. He is retired. Remote history of smoking having quit about 20 years ago after a 10 pack year history. 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 Last drank in 2016 What is your current living situation?: I presently have a place to live Problems where you live: no known problems Problems where you live details: NA In the past 12 months, utilities in danger of being shut off: no In past 12 months, lack of transportation kept you from medical appts, meetings, work, or getting things needed for daily living: no In the past 12 mos, have been you worried that your food would run out before you had money to buy more?: never true In the past 12 mos, the food you bought just didn't last and you didn't have money to buy more?: never true Highest level of school completed/degree received: some college, no degree Smoking Status: Former smoker Do you use any of these nicotine containing products: None Second hand tobacco smoke exposure: No How often do you have a drink containing alcohol: never How often do you have six or more drinks on one occasion: Never AUDIT-C Alcohol total score: 0 Non-prescribed substance use: denies use Caffeine: No How often does anyone, including family, friends and others, physically hurt you : never How often does anyone, including family, friends and others, insult or talk down to you: never How often does anyone, including family, friends and others, threaten you with harm: never How often does anyone, including family, friends and others, scream or curse at you: never Little interest or pleasure in doing things: not at all Feeling down, depressed, or hopeless: not at all service: No Exam Narrative: Exam Narrative: Constitutional: Appears well-developed and well-nourished. Alert. Conversant. Non toxic. HENT: Head: Atraumatic. Nose: Nose normal. Mouth/Throat: Oral mucosa is clear but dry. no trismus. Pharynx normal. Tonsils symmetric. No tonsillar enlargement, erythema, or exudate. Eyes: Conjunctivae normal. EOM normal. Pupils equal, round, and reactive to light. No scleral icterus. Neck: Normal range of motion. Neck supple. No tracheal deviation present. No JVD Cardiovascular: Normal rate, regular rhythm. No gallop. No friction rub. No murmur heard. Symmetric radial artery pulses Pulmonary/Chest: Effort normal. No stridor. No respiratory distress. No wheezes. No rales. No rhonchi . No tenderness. Abdominal: Soft. Bowel sounds normal. No distension. No mass. Diffuse tenderness more tender in left upper quadrant and left lower quadrant. Moderately tender in epigastrium and right upper quadrant. Is least tender in right lower quadrant.. No rebound. No guarding. No CVA tenderness. Large right upper quadrant incision. Musculoskeletal: RUE: Normal range of motion. No tenderness. No deformity LUE: Normal range of motion. No tenderness. No deformity RLE: Normal range of motion. No edema. No tenderness. No deformity LLE: Normal range of motion. No edema. No tenderness. No deformity Neurological: Alert and oriented to person, place, and day of the week. However seems a little bit confused and is of somewhat vague about other details of his history. Not able to answer some simple questions. Normal strength. CN II-VII intact. No sensory deficit. GCS eye subscore is 4. GCS verbal subscore is 5. GCS motor subscore is 6. Normal coordination Skin: Skin is warm and dry. No rash noted. No pallor. Normal capillary refill. Psychiatric: Normal mood. Normal affect. Const: Vital Signs, click to edit/add: Vital Signs - 24 hr 01/17/24 16:06 01/17/24 16:15 01/17/24 17:07 Temperature 97.6 F Pulse Rate 104 H 104 H Pulse Rate [Pulse Oximeter] 106 H Respiratory Rate 18 Blood Pressure Blood Pressure [Ri ght Upper Arm] 134/98 H Pulse Oximetry 100 99 100 Oxygen Delivery Me thod Room Air 01/17/24 17:15 01/17/24 17:30 01/17/24 17:45 Temperature Pulse Rate 104 H 104 H 102 H Pulse Rate [Pulse Oximeter] Respiratory Rate Blood Pressure Blood Pressure [Ri ght Upper Arm] Pulse Oximetry 99 99 99 Oxygen Delivery Me thod 01/17/24 18:08 01/17/24 18:15 01/17/24 18:30 Temperature Pulse Rate 100 102 H 100 Pulse Rate [Pulse Oximeter] Respiratory Rate Blood Pressure Blood Pressure [Ri ght Upper Arm] Pulse Oximetry 98 70 L 99 Oxygen Delivery Me thod 01/17/24 18:45 01/17/24 19:22 01/17/24 19:23 Temperature Pulse Rate 99 100 99 Pulse Rate [Pulse Oximeter] Respiratory Rate Blood Pressure 139/79 Blood Pressure [Ri ght Upper Arm] Pulse Oximetry 98 100 100 Oxygen Delivery Me thod 01/17/24 19:30 Temperature Pulse Rate 99 Pulse Rate [Pulse Oximeter] Respiratory Rate Blood Pressure Blood Pressure [Ri ght Upper Arm] Pulse Oximetry 98 Oxygen Delivery Me thod Course Vital Signs Vital signs: Initial Vital Signs Temperature 97.6 F 01/17/24 16:06 Temperature Source Temporal Artery Scan 01/17/24 16:06 Pulse Rate 106 H 01/17/24 16:06 Pulse Rhythm Regular 01/17/24 16:06 Respiratory Rate 18 01/17/24 16:06 Blood Pressure 134/98 H 01/17/24 16:06 Blood Pressure Mean 110 H 01/17/24 16:06 Blood Pressure Position Sitting 01/17/24 16:06 Pulse Oximetry 100 01/17/24 16:06 Oxygen Delivery Method Room Air 01/17/24 16:06 Vital Signs Temperature 97.6 F 01/17/24 16:06 Pulse Rate 106 H 01/17/24 16:06 Respiratory Rate 18 01/17/24 16:06 Blood Pressure 134/98 H 01/17/24 16:06 Pulse Oximetry 100 01/17/24 16:06 Oxygen Delivery Method Room Air 01/17/24 16:06 Temperature 97.6 F 01/17/24 16:06 Pulse Rate 99 01/17/24 19:30 Respiratory Rate 18 01/17/24 16:06 Blood Pressure 139/79 01/17/24 19:22 Pulse Oximetry 98 01/17/24 19:30 Oxygen Delivery Method Room Air 01/17/24 16:06 Medications Administered Medications: Generic Name Dose Route Start Last Admin Trade Name Freq PRN Reason Stop Dose Admin Lactated Ringer's 1,000 mls @ 250 mls/hr 01/17/24 20:00 01/17/24 20:16 Lactated Ringers 1000 Ml IV 250 mls/hr .Q4H FABY Administration Discontinued Medications Generic Name Dose Route Start Last Admin Trade Name Freq PRN Reason Stop Dose Admin Sodium Chloride 1,000 mls @ 1,000 mls/hr 01/17/24 17:15 01/17/24 19:12 0.9 % Sodium Chloride 1000 Ml IV 01/17/24 18:14 Infused .Q1H FABY Infusion Ondansetron HCl 4 mg 01/17/24 17:14 01/17/24 17:48 Ondansetron 2 Mg/Ml Inj IVP 01/17/24 17:15 4 mg ONCE ONE Administration Medical Decision Making MDM Narrative Medical decision making narrative: 73-year-old gentleman with a complex past medical history including history of renal failure, [place] failure status post liver transplant and kidney transplant (on chronic immunosuppression) presenting to the ER today with a 3 day history of diarrhea and abdominal pain, worsening today with development of nonbloody by repetitive vomiting. He has generalized weakness. He reports a subjective fever at home but only measured a temperature of 98?. Differential for his symptoms is broad. He does have fairly diffuse pain. Non- contrast (because of renal disease) CT scan of his abdomen/pelvis shows no evidence for diverticulitis, colitis, obstruction. No hydronephrosis. Unclear cause of his symptoms at this time. Could be side effects of his flu shot. Could be other viral gastroenteritis. Has history of C diff. I have ordered C diff stool studies and stool culture. However the patient's diarrhea has stopped and he has had no further stool since arriving here in the ER. He is not febrile. No evidence for colitis or diverticulitis on his CT. Venous lactic acid is normal. No evidence for mesenteric ischemia at this time. Although sensitivity for ischemia would be lower and noncontrast CT, the risk of adding contrast in this scenario would outweigh the benefit given renal insufficiency and risk for contrast nephropathy.. Lab work shows a white count of 4.0. He has a history of leukopenia in the past. This appears to be baseline. He is not febrile here. No clear evidence for an active bacterial infection. Hemoglobin is 12.3. No evidence for GI bleeding based on his description of his emesis or stool. LFTs are normal save for AST minimally elevated at 36. Ammonia level less than 9. Lipase normal. COVID and influenza PCR negative. Labs do show an acute kidney injury with a creatinine of 4.4 and a BUN of 67. Baseline creatinine appears to be at 1 0.2-1.4. It was 1.6 in November. This is clearly an acute worsening. Suspect likely related to dehydration. He IV saline bolus administered here in the ER. Maintenance LR at 250 mils per hour. Blood pressure is adequate at 134/98 at triage and 139 / 79. Heart rate was initially tachycardic at 106 down to the 90s after IV fluids. Urinalysis ordered but he is not yet produced any urine while here in the ER. Fortunately potassium is normal. He does have low bicarb which is likely due to dehydration and GI losses of bicarbonate. Also could be acidosis from acute renal failure. At this point does not require bicarb infusion. No need for immediate dialysis. He is not having any signs of fluid overload, hypoxia, difficulty breathing, or CHF at this time. It is clear hospitalization is indicated with an acute kidney injury in the setting of a previous renal/liver transplant. Discussed with our hospitalist Dr. Brown and would recommend transfer to the [facility] (where he had his transplant performed) given complexity and need for specialty consultation. I contacted the [facility] transfer center, discussed with hospitalist, Dr. Sands. He agrees that with the patient's acute renal failure, dehydration, that transfer to [facility] is indicated for evaluation and consultation with the Nephrology transplant team. However, there are currently no open beds at the [facility]. In the absence of any immediate need for transfer (no need for immediate procedure), patient is not a candidate to transfer ED to ED to wait for a bed int [facility] ED. Therefore Dr. Sands requests that we admit the patient here medically in [place]. The [facility] will place the patient on to their wait list. They tell me that the wait list today is much shorter than normal and they anticipate that they will almost certainly have a bed for him by tomorrow. They will contact us as soon as a bed is available. I had another conversation with our hospitalist, Dr. Brown. He agrees to admit this patient overnight for IV hydration, with anticipation that he will receive a bed from the [facility] tomorrow. Lab Data Labs: Lab Results 01/17/24 01/17/24 01/17/24 Range/Units 16:45 17:15 17:20 WBC 4.02 L (4.50-11.00) K/uL RBC 3.90 L (4.30-5.90) m/uL Hgb 12.3 L (13.5-17.5) gm/dL Hct 35.6 L (37.0-53.0) % MCV 91 (80-100) fL MCH 32 (26-34) pg MCHC 35 (32-36) gm/dL RDW Coeff of [place] 14.0 (11.5-15.5) % Plt Count 180 (140-440) K/uL Neut % (Auto) 73.9 H (42.0-72.0) % Lymph % (Auto) 17.9 L (20-44) % [place] % (Auto) 5.7 (0.0-11.0) % Eos % (Auto) 0.5 (0.0-7.0) % Baso % (Auto) 0.5 (0.0-3.0) % Neut # (Auto) 3.00 (1.7-7.0) K/uL Lymph # (Auto) 0.70 L (0.90-2.90) K/uL [place] # (Auto) 0.20 (0.00-0.90) K/UL Eos # (Auto) 0.00 (0.00-0.50) K/uL Baso # (Auto) 0.00 (0.00-0.30) K/uL Abs Immat Gran (auto) 0.10 (0.00-0.30) K/uL Imm/Tot Granulo (auto) 1.5 % Sodium 135 135 (135-149) mmol/L Potassium 4.9 4.9 (3.6-5.1) mmol/L Chloride 105 106 (96-114) mmol/L Carbon Dioxide 10 L 11 L (20-32) mmol/L Anion Gap 20 H 18 H (7-15) mEq/L BUN 67 H 67 H (7-30) mg/dL Creatinine 4.3 H 4.4 H (0.5-1.5) mg/dL Estimated Creat Clear 15.76 15.40 Estimated GFR 14 14 ml/min Glucose 194 H 193 H (60-115) mg/dL Lactate 1.1 (0.5-1.9) mmol/L Calcium 9.4 9.3 (8.4-10.6) mg/dL Magnesium 1.5 (1.5-2.6) mg/dL Total Bilirubin 1.4 (0.1-1.5) mg/dL AST 36 H (12-35) U/L ALT 7 (4-50) U/L Alkaline Phosphatase 90 (40-150) U/L Ammonia < 9.0 L (13.1-30.0) umol/L Total Protein 7.7 (6.0-8.3) g/dL Albumin 4.7 (3.3-5.0) g/dL Lipase 61 (23-300) U/L SARS-CoV-2 (PCR) Negative SARS-CoV-2 (Negative) Influenza Type A (PCR) Negative PCR FLU A (Negative) Influenza Type B (PCR) Negative PCR FLU B (Negative) Imaging Data CT scan - abdomen: Attestation: I have reviewed the pertinent imaging results. Radiologist's impression: Impression: Postoperative change status post liver transplant and kidney transplant without evidence of obvious acute intra-abdominal abnormality or significant inflammatory change. Moderate colonic diverticulosis without definite evidence of diverticulitis. Decompressed appearance of the colon may obscure low-grade inflammatory changes. ECG Data Attestation: I personally reviewed and interpreted this ECG as follows: Interpretation: Normal sinus rhythm Rate: 99 MD: 170 QRS axis: Normal axis. No pathologic Q-waves. ST segment/T wave: No ST segment elevation or depression. QTc: 513. Prolonged QT Discharge Plan Discharge Clinical Impression: Acute renal failure, Acute dehydration, Diarrhea Prescriptions: No Action oxycodone 5 mg tablet 5 mg PO Q8H PRN (Reason: pain) Qty: 60 0RF famotidine 40 mg tablet 40 mg PO QHS Qty: 90 3RF tacrolimus 1 mg capsule 3 mg PO Q12H azathioprine 50 mg tablet 150 mg PO DAILY aspirin [Adult Aspirin Regimen] 81 mg tablet,delayed release (DR/EC) 81 mg PO DAILY ergocalciferol (vitamin D2) 50 mcg (2,000 unit) tablet 50 mcg PO DAILY atorvastatin 20 mg tablet 20 mg PO HS Qty: 90 3RF glipizide 5 mg tablet 5 mg PO DAILYWM Qty: 90 1RF citalopram 20 mg tablet 20 mg PO DAILY Qty: 90 1RF gabapentin 300 mg capsule 300 mg PO BID Qty: 180 1RF omeprazole 20 mg capsule,delayed release(DR/EC) 20 mg PO BID 30 Days Qty: 180 3RF Follow Up/Referrals: Rubén Boyle MD [Primary Care Provider] -
[2024-01-17 17:06] LABS: Basophils Percent Auto 0.5 % (0.0-3.0); Eosinophils Percent Auto 0.5 % (0.0-7.0); Hematocrit 35.6 % (37.0-53.0); Hemoglobin* 12.3 gm/dL (13.5-17.5); Immature Granulocytes Pct Auto 1.5 %; Lymphocytes Percent Auto 17.9 % (20-44); Mean Corpuscular HGB Conc 35 gm/dL (32-36); Mean Corpuscular Hemoglobin 32 pg (26-34); Mean Corpuscular Volume 91 fL (80-100); Monocytes Percent Auto 5.7 % (0.0-11.0); Neutrophils Percent Auto 73.9 % (42.0-72.0); Platelet Count* 180 K/uL (140-440); White Blood Count* 4.02 K/uL (4.50-11.00)
--- NOTE | 2024-01-17 17:14 | CRLHL7_ITS ---
For Patients: As a result of the Century Cures Act, medical imaging exams and procedure reports are released immediately into your electronic medical record. You may view this report before your referring provider. If you have questions, please contact your health care provider. Indication: Abdominal pain, vomiting, diarrhea, history of renal transplant, liver transplant Technique: Volumetric multidetector CT images of the abdomen and pelvis were without the administration of intravenous contrast. Comparison: CT chest, abdomen and pelvis March 18, 2023 Findings: There is minimal basilar atelectasis and parenchymal scar. Postoperative changes of the liver status post liver transplant similar to previous exam. No focal abnormality or inflammatory changes. The gallbladder is surgically absent. There is no significant common biliary ductal dilatation or abrupt cut off. The spleen is normal in attenuation and size. The stomach and duodenum are grossly unremarkable. There is mild pancreatic atrophy. The adrenal glands are unremarkable. Cystic changes of the left kidney are again seen. [place] kidneys demonstrate minimal nonspecific perinephric stranding. Transplant kidney in the right lower quadrant is again seen without evidence of obstruction. Moderate stool seen in the proximal colon with mild descending and sigmoid colonic diverticulosis without overt pericolonic inflammatory changes. The appendix is unremarkable. There is no significant mesenteric, retroperitoneal, or pelvic sidewall lymph nodes. The aorta is nonaneurysmal with mild scattered atherosclerotic calcification. The solid pelvic viscera are grossly unremarkable. There is no free fluid or free air. Postoperative change of the anterior abdominal wall is again appreciated. The lumbar vertebral body heights are grossly maintained with mild anterolisthesis of L4 on L5. There is moderate facet arthrosis. Impression: Postoperative change status post liver transplant and kidney transplant without evidence of obvious acute intra-abdominal abnormality or significant inflammatory change. Moderate colonic diverticulosis without definite evidence of diverticulitis. Decompressed appearance of the colon may obscure low-grade inflammatory changes. Please note that all CT scans at this facility use dose modulation, iterative reconstruction, and/or weight-based dosing when appropriate to reduce radiation dose to as low as reasonably achievable. Dictated by Gab Agarwal MD @ 01/17/2024 7:05:55 PM (Electronically Signed)
[2024-01-17 17:16] LABS: Slide Review Reflex No
--- OUTSIDE RECORDS SUMMARY | 2024-01-17 17:23 | XMS_ITS | Continuity of Care Document ---
Author Organization [facility] Address [address] [address] [place] [address] Phone Care Team Providers Care Customer Services Supervisor Name Role Phone Leo Chisholm Unavailable Unavailable Procedures Procedure Date Subsqt Hosp-da E&m Minr Compl 3 Init Hosp-da E&m Mod Severity 3 Ugi Endo; Dx W/wo Collec Specm 23 Init Hosp-da E&m Mod Severity 6 Subsqt Hosp-da E&m Minr Compl 6 Subsqt Hosp-da E&m Minr Compl 6 Advance Directives Directive Yes / No Effective Date File Name No Information Encounters Encounter Description Practice Location Reason(s) For Visit Diagnoses Date Provider Providers Copied on Encounter Subsqt Hosp-da E&m Minr Compl [facility], [address] [address], [place], [place], [id number], tel:[phone] [facility] No Information 3 Willian Bailey. [address] [facility] [address], [place], [id number] , [place]. tel:[phone] Referring Provider: Leo DESOUZA, [address] [facility] [address], [place], [address] . tel:[phone] Init Hosp-da E&m Mod Severity [facility], [address] [address], [place], [place], [id number], tel:[phone] [facility] No Information 3 Rank MD [place]. [address] [facility], [facility] [address], [place], [place], [id number] , [place]. [phone] Referring Provider: Rubén Boyle MD, [address] [place], [address]. tel:[phone] Init Hosp-da E&m Mod Severity [facility], [address] [address], [place], [place], [id number], [place] tel:[phone] [facility] No Information 6 Vignesh Proctor. [address], [id number] , [place]. [phone] Subsqt Hosp-da E&m Minr Compl [facility], [address] [address], [place], [place], [id number], [place] tel:[phone] [facility] No Information 6 Ruthann Mukherjee. [address], [id number] , [place]. [phone] Family History Family Member Type Diagnosis Age At Onset No Information Payers Payer name Insurance type Covered constitution party ID Authoriza tilisa(s) Blue Cross [place] [employer] BL [id number] Social History Type Description Quantity Date Captured Comments Sex Male Smoking Status No Information Chief Complaint And Reason For Visit No Information Reason For Referral Reason For Referral No Information History Of Present Illness Encounter Date Complaint History Of Prese nt Illness No Information Functional Status Date Functional Assessmen t No Information Instructions Date Instruction Additional Infor mation No Information Assessments Type Assessment Date No Information Patient Care Teams Name Effective Dates (start - stop) Status Members No Information
--- OUTSIDE RECORDS SUMMARY | 2024-01-17 17:23 | XMS_ITS | Clinical Summary ---
Author Organization [facility] Address [address] [address] Phone Care Team Providers Care Medicaid Analyst Name Role Phone Rubén Boyle MD [...] Advance Directives For more information, please contact: [phone] * Full Code (Latest Code Status on File) Date Activated Date Inactivated Comments 01/22/2016 8:55 AM 01/24/2016 5:42 PM Care Teams Medicaid Analyst Relationship Specialty Start Date End Date Rubén Boyle MD PCP - General Family Medicine 01/17/16
[2024-01-17 17:24] LABS: Chloride* 105 mmol/L (96-114); Sodium* 135 mmol/L (135-149)
--- OUTSIDE RECORDS SUMMARY | 2024-01-17 17:24 | XMS_ITS | Encounter Summary ---
Author Organization [facility] Address [address] [place] [address] Care Team Providers Care Research Statistician Name Role Phone Rubén Boyle MD Primary Care Provider [phone] Pamela Blnaco BLIND HANGER Unavailable Pedro Segura MD Unavailable [phone] Freddy Craft MD Unavailable Nicole Carranza BLIND HANGER Unavailable [phone] Andressa Ruiz-C Unavailable Suzan Harry MD Unavailable [phone] Yasmeen Powers MD Unavailable [phone] Yasmeen Powers MD Unavailable [phone] Encounter Details Date Type Department Care Team (Late st Contact Info) Description 01/03/2024 MyC Medical Advice [facility] [address] [place] [address] Calli Hall, RN Social History [...] documented as of this encounter Care Teams Research Statistician Relationship Specialty Start Date End Date Rubén Boyle MD PCP - General Family Practice 03/08/16 Pamela Blanco NP [facility] [address] [place], [place] [address] Referring Physician 07/13/16 Pedro Segura MD [facility] [address] [place], [place] [address] Nephrology 10/03/16 Freddy Craft MD [address] [facility] [place], [place] [address] Assigned Gastroenterology Provider 02/08/20 Nicole Carranza, [place] 420 [facility] 508 [place], [place] [address] Assigned Heart and Vascular Provider 01/09/22 Andressa Ruiz PA-C 420 [facility] 803 [place], [place] [address] Physician Opthalmic Tech Endocrinology, Diabetes, and Metabolism 03/01/22 Suzan Harry MD [address] [place] [address] Nephrology 06/30/23 Yasmeen Powers MD 500 [place] [address] Nephrology 10/24/23 Yasmeen Powers MD 500 [place] [address] Assigned Nephrology Provider 11/08/23 documented as of this encounter
--- OUTSIDE RECORDS SUMMARY | 2024-01-17 17:24 | XMS_ITS | Encounter Summary ---
Author Organization [facility] Address [address] [place] [address] Care Team Providers Care Tempering Oven Operator Name Role Phone Rubén Boyle MD Primary Care Provider Pamela Blanco NURSING INSTRUCTOR Unavailable Pedro Segura MD Unavailable [phone] Freddy Craft MD Unavailable Abdifatah Van MD Unavailable Nicole Carranza NURSING INSTRUCTOR Unavailable Andressa Ruiz-C Unavailable Suzan Harry MD Unavailable [phone] Yasmeen Powers MD Unavailable Yasmeen Powers MD Unavailable [phone] Encounter Details Date Type Department Care Team (Late st Contact Info) Description 10/18/2023 Telephone [facility] [address] [place] [address] Laurie Carmen LPN Social History [...] order to submit PA. Alec will call music writer back. 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, 07/10/16 rectal swab 06/21/2016 06/21/2016 documented as of this encounter Care Teams Tempering Oven Operator Relationship Specialty Start Date End Date Rubén Boyle MD PCP - General Family Practice 03/08/16 Pamela Blanco NP [facility] [address] [place] [address] Referring Physician 07/13/16 Pedro Segura MD [facility] [address] [place] [address] Nephrology 10/03/16 Freddy Craft MD [address] [address] Assigned Gastroenterology Provider 02/08/20 Abdifatah Van MD 717 [facility] [address] [place] [address] Assigned Nephrology Provider 07/13/20 11/07/23 Nicole Carranza NP 420 [facility] [address] [place] [address] Assigned Heart and Vascular Provider 01/09/22 Andressa Ruiz PA-C 420 [facility] 803 [place] [address] Physician Thumb Sewer Endocrinology, Diabetes, and Metabolism 03/01/22 Suzan Harry MD 420 [place] [address] Nephrology 06/30/23 Yasmeen Powers MD 500 [place] [address] Nephrology 10/24/23 Yasmeen Powers MD 500 [place] [address] Assigned Nephrology Provider 11/08/23 documented as of this encounter
--- OUTSIDE RECORDS SUMMARY | 2024-01-17 17:24 | XMS_ITS | Encounter Summary ---
Author Organization [facility] Address [address] [place] [address] Care Team Providers Care Carry Out Clerk And Shelf Stocker Name Role Phone Rubén Boyle MD Primary Care Provider Pamela Blanco MECHANICAL HANDYMAN Unavailable Pedro Segura MD Unavailable Freddy Craft MD Unavailable [phone] Abdifatah Van MD Unavailable Nicole Carranza MECHANICAL HANDYMAN Unavailable [phone] Andressa Ruiz PA-C Unavailable Suzan Harry MD Unavailable [phone] Reason for Visit * Reason Onset Date Comments Prior Auth - Medication 10/18/2023 Tacrolim us PA Not Needed Encounter Details Date Type Department Care Team (Late st Contact Info) Description 10/18/2023 Telephone [facility] Marrow Trans[facility] Program [address] [address] Mónica Suarez Prior Auth [...] documented as of this encounter Care Teams Carry Out Clerk And Shelf Stocker Relationship Specialty Start Date End Date Rubén Boyle MD PCP - General Family Practice 03/08/16 Pamela Blanco NP [facility] [address] [place], [place] [address] Referring Physician 07/13/16 Pedro Segura MD [facility] [address] [place], [place] [address] Nephrology 10/03/16 Freddy Craft MD 516 [facility] [address] [place], [place] [address] Assigned Gastroenterology Provider 02/08/20 Abdifatah Van MD 717 [facility] [address] [place], [place] [address] Assigned Nephrology Provider 07/13/20 11/07/23 Nicole Carranza NP 420 [facility] 508 [place], [place] [address] Assigned Heart and Vascular Provider 01/09/22 Andressa Ruiz PA-C 420 [facility] 803 [place], [place] [address] Physician Marionette Performer Endocrinology, Diabetes, and Metabolism 03/01/22 Suzan Harry MD 420 [place], [place] [address] Nephrology 06/30/23 documented as of this encounter
--- OUTSIDE RECORDS SUMMARY | 2024-01-17 17:24 | XMS_ITS | Encounter Summary ---
Author Organization [facility] Address [address] [place] [address]. [place] [address] Care Team Providers Care Vice President Of Product Marketing Name Role Phone Rubén Boyle MD Primary Care Provider Pamela Blanco STUDIO DESIGNER Unavailable Pedro Segura MD Unavailable Freddy Craft MD Unavailable [phone] Nicole Carranza STUDIO DESIGNER Unavailable [phone] Andressa Ruiz PA-C Unavailable [phone] Suzan Harry MD Unavailable [phone] Yasmeen Powers MD Unavailable Yasmeen Powers MD Unavailable Encounter Details Date Type Department Care Team (Late st Contact Info) Description 11/18/[address] [facility] [address] [place] [address] Freddy Craft MD 6 [facility] [address] [place] [address] Liver replaced by transplant (H) [...] documented as of this encounter Care Teams Vice President Of Product Marketing Relationship Specialty Start Date End Date Rubén Boyle MD PCP - General Family Practice 03/08/16 Pamela Blanco STUDIO DESIGNER [facility] [address] [place], [place] [address] Referring Physician 07/13/16 Pedro Segura MD [facility] [address] [place], [place] [address] Nephrology 10/03/16 Freddy Craft MD 516 [facility] [address] [address] [place], [place] [address] Assigned Gastroenterology Provider 02/08/20 Nicole Carranza NP 420 [facility] [address] [place], [place] [address] Assigned Heart and Vascular Provider 01/09/22 Andressa Ruiz PA-C 420 [facility] [address] [place], [place] [address] Physician Pattern Maker Programer Endocrinology, Diabetes, and Metabolism 03/01/22 Suzan Harry MD 420 [place], [place] [address] Nephrology 06/30/23 Yasmeen Powers MD 500 [place], [place] [address] Nephrology 10/24/23 Yasmeen Powers MD 500 [place] [address] Assigned Nephrology Provider 11/08/23 documented as of this encounter
--- OUTSIDE RECORDS SUMMARY | 2024-01-17 17:24 | XMS_ITS | Encounter Summary ---
Author Organization [facility] Address [address] [place] [address] Care Team Providers Care Overnight Cashier Name Role Phone Rubén Boyle MD Primary Care Provider Pamela Blanco PRINTING MECHANIST Unavailable Pedro Segura MD Unavailable [phone] Freddy Craft MD Unavailable [phone] Nicole Carranza PRINTING MECHANIST Unavailable [phone] Andressa Ruiz-C Unavailable Suzan Harry MD Unavailable [phone] Yasmeen Powers MD Unavailable [phone] Yasmeen Powers MD Unavailable [phone] Reason for Visit * Reason Onset Date Comments Transplant Immunosuppression Management 12/16/19 24 Encounter Details Date Type Department Care Team (Late st Contact Info) Description 12/16/2023 Telephone [facility] [address] [place] [address] Malinda Alves RN Transplant Immunosuppression [...] repeat labs. Patient voiced understanding of plan. Laurei Carmen LPN documented in this encounter Plan of Treatment Not on file documented as of this encounter Visit Diagnoses Diagnosis Liver replaced by transplant (H) Liver replaced by transplant documented in this encounter Additional Health Concerns Infection Onset Date Last Indicated Resolved Time 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/16 urine, 07/10/16 rectal swab 06/21/2016 06/21/2016 documented as of this encounter Care Teams Overnight Cashier Relationship Specialty Start Date End Date Rubén Boyle MD PCP - General Family Practice 03/08/16 Pamela Blanco, PRINTING MECHANIST [facility] [address] [place] [address] Referring Physician 07/13/16 Pedro Segura MD [facility] [address] [place] [address] Nephrology 10/03/16 Freddy Craft MD 516 [facility] [address] [place], [place] [address] Assigned Gastroenterology Provider 02/08/20 Nicole Carranza NP 420 [facility] 508 [place], [place] [address] Assigned Heart and Vascular Provider 01/09/22 Andressa Ruiz PA-C 420 [facility] 803 [place], [place] [address] Physician Operator Lights Endocrinology, Diabetes, and Metabolism 03/01/22 Suzan Harry MD 420 [place], [place] [address] Nephrology 06/30/23 Yasmeen Powers MD 500 [place], [place] [address] Nephrology 10/24/23 Yasmeen Powers MD 500 [place], [place] [address] Assigned Nephrology Provider 11/08/23 documented as of this encounter
--- OUTSIDE RECORDS SUMMARY | 2024-01-17 17:24 | XMS_ITS | Clinical Summary ---
Author Organization [facility] Address [address] [place] [address] Care Team Providers Care Lens Cutter Name Role Phone Rubén Boyle MD Primary Care Provider [phone] Pamela Blanco HEALTH AND SAFETY ADVISOR Unavailable Pedro Segura MD Unavailable Freddy Craft MD Unavailable Deshawn Guevara HEALTH AND SAFETY ADVISOR Unavailable Andressa Ruiz-C Unavailable Suzan Harry MD Unavailable [phone] Yasmeen Powers MD Unavailable Yasmeen Powers MD Unavailable [phone] Allergies Active Allergy Reactions Criticality Noted Date [...] (PEN NEEDLES 08/31) 31G X 8 MM [facility] [place] administering insulin at home QID. 7 [...] migh t be different from the original. [facility] in [place], [place] Fax #: [phone] Pharm - [facility]. Problem Noted Date [...] Type Department Care Team Description 01/11/2024 Telephone [facility] [address] [place] [phone] Felipa Raya, impregnating machine operator 01/03/2024 MyC Medical Advice [facility] [address] [address] Calli Hall RN 12/28/2023 Telephone [facility] [address] [place] [phone] Laurie Carmen LPN Prior Auth - Medication (Tacrolimus 1mg) 12/16/2023 Telephone [facility] [address] [place] [phone] Malinda Alves, impregnating machine operator Immunosuppression Management 12/13/2023 External Order Results Formerly [facility] [address] [place] [address] Outside, Provider Liver replaced by transplant (H) 11/18/2023 Orders Only [facility] [address] [address] Freddy Craft MD Liver replaced by transplant (H) (Primary Dx) 10/24/2023 Telephone [facility] [address] [place] [phone] Felipa Raya, RN Appointment 10/18/2023 Telephone [facility] [address] [phone] Mónica Suarez Maira Prior Auth - Medication (Azathioprine 50 mg PA Not Needed) 10/18/2023 Telephone [facility] [address] [phone] Mónica Suarez Maira Prior Auth - Medication (Tacrolimus PA Not Needed) 10/18/2023 Telephone [facility] [address] [place] [phone] Laurie Carmen LPN 10/17/2023 Orders Only [facility] [address] [address] Felipa Raya RN Kidney replaced [...] DT Respiratory Rate 14 03/02/2022 4:40 AM PAPER STACKER Oxygen Saturation 96% 10/11/2023 11:30 AM CDT [...] this topic Medical Devices Implanted Type Area Yarn Cleaner Device Identifier Shelf Expiration Date Model / Serial / Lot Stent Coronary Gelacio Synergy Xd Mr Us [id number] - [id number] Implanted:Qty: 1 on 02/12/2022 at [facility] Stent Drug Eluting (GELACIO) [employer] 03/09/2023 [id number] / / [id number] Stent Coronary Gelacio Synergy Xd Mr Us [id number] - [id number] Implanted:Qty: 1 on 02/12/2022 at [facility] Stent Drug Eluting (GELACIO) [employer] 03/16/2023 [id number] / / [id number] Closure Angioseal 6fr [id number] - [id number] Implanted:Qty: 1 on 02/12/2022 at [facility] [employer] 11/15/2022 [id number] / / [id number] Closure Angioseal 6fr [id number] - [id number] Implanted:Qty: 1 on 02/12/2022 at [facility] [employer] 11/15/2022 [id number] / / [id number] Closure Angioseal 6fr 023829 - [id number] Implanted:Qty: 1 on 02/24/2022 at [facility] [employer] 09/15/2022 [id number] / / [id number] Explanted Type Area Yarn Cleaner Device Identifier Shelf Expiration Date Model / Serial / Lot Stent Ureteral Soft Universa [id number] Us-518 [id number] Implanted:Qty: 1 on 07/11/2016 by Aime Vu MD at [facility] Explanted:Qty: 1 on 08/19/2016 by Aime Vu MD at [facility] Stent N/A: Ureter [employer] 02/12/2019 US-518 / / [id number] Procedures Procedure Name Priority Date/Time Associated Diagnosis Comments TACROLIMUS BY TANDEM MASS SPECTROMETRY Routine 12/13/2023 12:00 AM CDT Liver replaced by transplant (H) CBC WITH PLATELETS Routine 09/30/2023 9: 40 AM CDT Liver replaced by transplant (H) BASIC METABOLIC PANEL Routine 09/30/2023 9:40 AM CDT Liver replaced by transplant (H) HEPATIC FUNCTION PANEL Routine 04/05/2023 12:30 PM PAPER STACKER Liver replaced by transplant (H) LIPID PROFILE Routine 01/31/2023 8:54 AM CDT S/P TAVR (transcatheter aortic valve replacement) Coronary artery disease involving 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 UA MACROSCOPIC WITH REFLEX TO MICRO AND CULTURE Routine 02/25/2022 9:[address] ABDOMEN PELVIS W/O CONTRAST STAT 02/25/2022 12:10 AM PAPER STACKER HEMOGLOBIN A1C Routine 02/24/2022 9:[address] ANGIOGRAM TAVR Routine 01/13/2022 12: 33 PM CDT Other ill-defined heart diseases Severe aortic stenosis HEPATITIS C ANTIBODY Routine 05/13/2020 8:50 AM PAPER STACKER ALBUMIN RANDOM URINE QUANTITATIVE Routine 05/17/2019 10:05 AM PAPER STACKER COLONOSCOPY Routine 03/31/2017 10:57 AM PAPER STACKER TSH STAT 07/02/2016 3:42 PM CDT from [...] - BLOOD ORD ERABLES Performing Organization Address City/[facility] Co de Phone Number SAMANTHA PFT NON-INTERFACED (ONBASE SCANS) * Hepatic panel (04/05/2023 12:30 PM PAPER STACKER) Pathologist [facility] Protein Total (External) 6.3 6.0 - 8.3 [...] BLOOD SPECIMEN / Unknown 04/05/2023 12:30 PM PAPER STACKER Narrative AMNAE PFT - 04/07/2023 6:33 AM PAPER STACKER Verified by Yamil Santo on 04/07/2023. Freddy [place] MD LAB - [facility]LOOD [facility]D [facility]ABLES [facility]ONBASE SCANS) * (ABNORMAL) Lipid Profile (01/31/2023 8:54 AM CDT) Pathologist [facility] Cholesterol 104 <200 mg/dL 01/31/2023 9:30 AM CDT [facility] Triglycerides 225(H) <150 mg/dL 01/31/2023 9:30 AM CDT [facility] Direct Measure HDL 33(L) >=40 mg/dL 01/31/2023 9:30 AM CDT [facility] LDL Cholesterol Calculated 26 <=100 mg/dL 01/31/2023 9:30 AM CDT [facility] Non HDL Cholesterol 71 <130 mg/dL 01/31/2023 9:30 AM CDT [facility] Blood STRUCTURE OF LEFT UPPER LIMB / Unknown Venipuncture / Unknown 01/31/2023 8:54 AM CDT 01/31/2023 8:57 AM CDT Narrative [facility] - 01/31/2023 9:30 [...] Guevara NP LAB - BLOOD ORDERA BLES [facility] [place] [address] [facility] 1st [place] [address] * (ABNORMAL) UA reflex to Microscopic and Culture (02/25/2022 9:55 PM PAPER STACKER) Color Urine Yellow Colorless, Straw, Light Yellow, Yellow 02/25/2022 10:20 PM PAPER STACKER [facility] Appearance Urine Clear Clear 02/26/20 10:20 PM PAPER STACKER [facility] Glucose Urine 100(A) Negative mg/dL 02/25/2022 10:20 PM PAPER STACKER [facility] Bilirubin Urine Negative Negative 10:20 PM PAPER STACKER [facility] Ketones Urine 20(A) Negative mg/dL 02/25/2022 10:20 PM PAPER STACKER [facility] Specific Lorena Urine 1.026 1.003 - 1.035 02/25/2022 10:20 PM PAPER STACKER [facility] Blood Urine Negative Negative 02/25/2022 10:20 PM PAPER STACKER [facility] pH Urine 5.0 5.0 - 7.0 02/25/2022 10:20 PM PAPER STACKER [facility] Protein Albumin Urine 10(A) Negative mg/dL 02/25/2022 10:20 PM PAPER STACKER [facility] Urobilinogen Urine Normal Normal, 2.0 mg/dL 02/25/2022 10:20 PM PAPER STACKER [facility] Nitrite Urine Negative Negative 02/25/2022 10:20 PM PAPER STACKER [facility] Leukocyte Esterase Urine Negative Negative 02/25/2022 10:20 PM PAPER STACKER [facility] Mucus Urine Present(A) None Seen /LPF 02/25/2022 10:20 PM PAPER STACKER [facility] RBC Urine <1 <=2 /HPF 02/25/2022 10:20 PM PAPER STACKER [facility] WBC Urine 1 <=5 /HPF 02/25/2022 10:20 PM PAPER STACKER [facility] Squamous Epithelials Urine <1 <=1 /HPF 02/25/2022 10:20 PM PAPER STACKER [facility] Hyaline Casts Urine 4(H) <=2 /LPF 02/25/2022 10:20 PM PAPER STACKER [facility] Urine URINE SPECIMEN OBTAINED BY CLEAN CATCH PROCEDURE / Unknown Non-blood Collection / Unknown 02/25/2022 9:55 PM PAPER STACKER 02/25/2022 10:01 PM PAPER STACKER Narrative [facility] - 02/25/2022 10:20 PM PAPER STACKER Urine Culture not indicated Rubén Zambrano MD LAB - URINE ORDERABL ES [facility] [facility] [address] [facility], Room [address] [place] [phone], [facility] [phone] * CT Abdomen Pelvis w/o Contrast (02/25/2022 12:10 AM PAPER STACKER) Anatomical Region Laterality Modality Abdomen/Pelvis, SUBRAD CT MINA DY, UMP CT ABDOMEN PELVIS, RAD CT Computed Tomography Impressions 02/25/2022 8:18 AM PAPER STACKER IMPRESSION: 1. 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 2. Colonic diverticulosis without evidence of acute diverticulitis. 3. No intra-abdominal findings to suggest etiology for patient's symptoms. I have personally reviewed the examination and initial interpretation and I agree with the findings. SEA WOOD MD Narrative 02/25/2022 8:18 AM PAPER STACKER EXAMINATION: CT ABDOMEN PELVIS W/O CONTRAST, 02/25/2022 [...] lesions. Unremarkable spleen. No adrenal nodules. Atrophic kasaan kidneys with simple renal cyst in the [...] lesions. Unremarkable spleen. No adrenal nodules. Atrophic kasaan kidneys with simple renal cyst in the [...] * (ABNORMAL) Hemoglobin A1c (02/24/2022 9:42 PM PAPER STACKER) Hemoglobin A1C 5.7(H) <5.7 % 02/24/2022 11:58 PM PAPER STACKER [facility] Comment: Normal <5.7% Prediabetes 5.7-6.4% ?? Diabetes 6.5% or higher Note: Adopted from ADA consensus guidelines. Blood STRUCTURE OF LEFT HAND / Unknown Venipuncture / Unknown 02/24/2022 9:42 PM PAPER STACKER 02/24/2022 9:55 PM PAPER STACKER Theresa Ayala APRN MEAT TRIMMER LAB - BLOOD OR DERABLES [facility] Core Lab [address] [facility], Room [address] [address], [facility] [phone] * CT Angiogram TAVR (01/13/2022 12:33 PM CDT) Anatomical Region Laterality Modality Lower Extremity, [facility] CT CTA Comp uted Tomography Impressions 01/13/2022 [...] aortic root calcification. 3. ??There are significant kasaan coronary calcifications. 4. ??The arch vessel branching pattern is normal. 5. ??The suprarenal abdominal aorta is moderately calcified; infrarenal abdominal aorta is severely calcified 6. ??Widely patent origins of celiac trunk, superior mesenteric artery and inferior mesenteric artery. ??Single bilateral renal arteries with widely patent origins. 7. ??There is no acute aortic pathology, such as dissection, intramural hematoma, or contained rupture. MEASUREMENTS: Swatch Clerk dimensions of the thoracoabdominal aorta are as [...] in a spiral gated mode with limited [id number]-an-iahj followed by gated high pitch spiral CTA of the chest, abdomen, pelvis at 120 kVP to evaluate the thoracoabdominal aorta and iliac vasculature. Scan protocol was optimized to minimize radiation exposure. The total radiation exposure was 1817 DLP and 25.4 mSv. Images were reconstructed and analyzed on a [employer] Workstation. Procedure Note Praful Bowen MD - [...] in a spiral gated mode with limited mcirw-hh-oodg followed by gated high pitch spiral CTA of the chest, abdomen, pelvis at 120 kVP to evaluate the thoracoabdominal aorta and iliac vasculature. Scan protocol was optimized to minimize radiation exposure. The total radiation exposure was 1817 DLP and 25.4 mSv. Images were reconstructed and analyzed on a [employer] Workstation. IMPRESSION: 1. See below for TAVR [...] aortic root calcification. 3. There are significant kasaan coronary calcifications. 4. The arch vessel branching pattern is normal. 5. The suprarenal abdominal aorta is moderately calcified; infrarenal abdominal aorta is severely calcified 6. Widely patent origins of celiac trunk, superior mesenteric artery and inferior mesenteric artery. Single bilateral renal arteries with widely patent origins. 7. There is no acute aortic pathology, such as dissection, intramural hematoma, or contained rupture. MEASUREMENTS: Swatch Clerk dimensions of the thoracoabdominal aorta are as [...] follow separately PRAFUL GORDON MD Deshawn Guevara HEALTH AND SAFETY ADVISOR IMG CT ORDERABLES * Hepatitis C antibody (05/13/2020 8:50 AM PAPER STACKER) Hepatitis C Antibody (External) Negative Negative LABDE SCAN Blood specimen (specimen) 05/13/2020 8:50 AM PAPER STACKER Subhash SINGH PFT - 05/15/2020 7:27 AM PAPER STACKER Verified by Cruzito Marlow on 05/15/2020. Patient Reported LAB - BLOOD ORDERABL ES SAMANTHA PFT LABDE SCAN * Albumin Random Urine Quantitative with Creat Ratio (05/17/2019 10:05 AM PAPER STACKER) Microalbumin Urine (External) 1 mg/dl LABDE SCAN Creatinine Urine mg/dL (External) 106 mg/dl LABDE SCAN Microalbumin Urine mg/g Cr (External) 9 0 - 30 mg/g LABDE SCAN Urine specimen (specimen) 05/17/2019 10:05 AM PAPER STACKER Narrative SAMANTHA KEMP - 05/23/2019 7:16 AM PAPER STACKER Verified by Pedrito Stallworth on 05/23/2019. Patient Reported LAB - URINE ORDERABL ES SAMANTHA KEMP LABDE SCAN * COLONOSCOPY (03/31/2017 10:57 AM PAPER STACKER) COLONOSCOPY [address] [address] [phone] ? Endoscopy Department Patient Name: Lito Mora [...] of the exam. Signature of teaching physician [id number] Ballard MD Number of Addenda: 0 Note Initiated On: 03/31/2017 10:57 AM Scope In: Scope Out: RADIOLOGY RESULTS 03/31/2017 10:5 7 AM PAPER STACKER Freddy [place] MD PROCEDURES RADIOLOGY RESULTS * TSH (07/02/2016 3:42 PM CDT) TSH 0.95 0.40 - 4.00 mU/L [facility] Blood specimen (specimen) 07/02/2016 3:42 PM CDT 07/02/2016 4:14 PM CDT Angela Dias MD LAB - BLOOD ORDERAB LES 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, 07/10/16 rectal swab 06/21/2016 06/21/2016 Advance Directives For more information, please contact: [phone] * Full Code (Latest Code Status on [...] 3:12 PM 11/15/2016 8:38 PM Care Teams Lens Cutter Relationship Specialty Start Date End Date Rubén [place] MD PCP - General Family Practice 03/08/16 Pamela Blanco HEALTH AND SAFETY ADVISOR [facility] [address] [place] [address] Referring Physician 07/13/16 Pedro [place] MD [facility] [address] [place], [place] [address] Nephrology 10/03/16 Freddy Craft MD [address] [facility] [address] [place], [place] [address] Assigned Gastroenterology Provider 02/08/20 Deshawn Guevara NP [address] [facility] [address] [place], [place] [address] Assigned Heart and Vascular Provider 01/09/22 Andressa Ruiz PA-C 420 [facility] [address] [place], [place] [address] Physician Delinquency Prevention Social Worker Endocrinology, Diabetes, and Metabolism 03/01/22 Suzan [place] MD [address] [place] [address] Nephrology 06/30/23 Yasmeen [place] MD [address] [place] [address] Nephrology 10/24/23 Yasmeen [place] MD [address] [place] [address] Assigned Nephrology Provider 11/08/23
--- OUTSIDE RECORDS SUMMARY | 2024-01-17 17:24 | XMS_ITS | Encounter Summary ---
Author Organization [facility] Address [address] [place] [address] Care Team Providers Care Armored Car Guard And Driver Name Role Phone Rubén [place] MD Primary Care Provider [phone] Pamela Blanco HIDE AND SKIN CLASSER Unavailable Pedro Segura MD Unavailable [phone] Freddy Craft MD Unavailable [phone] Nicole Carranza HIDE AND SKIN CLASSER Unavailable [phone] Andressa Ruiz-C Unavailable Suzan [place] MD Unavailable [phone] Yasmeen [place] MD Unavailable [phone] Yasmeen Powers MD Unavailable [phone] Reason for Visit * Reason Onset Date Comments Transplant 01/11/2024 Encounter Details Date Type Department Care Team (Late st Contact Info) Description 01/11/2024 Telephone [facility] [address] [place] [address] Felipa Raya, winder helper Social History Tobacco Use Types Packs/Day Years [...] documented as of this encounter Care Teams Armored Car Guard And Driver Relationship Specialty Start Date End Date Rubén [place]le MD PCP - General Family Practice 03/08/16 Pamela Blanco HIDE AND SKIN CLASSER [facility] [address] [place] [address] Referring Physician 07/13/16 Pedro Segura MD [facility] [address] [place] [address] Nephrology 10/03/16 Freddy Craft MD [address] [place] [address], [place] [address] Assigned Gastroenterology Provider 02/08/20 Nicole Carranza NP 420 [facility] [address] [place] [address] Assigned Heart and Vascular Provider 01/09/22 Andressa Ruiz PA-C 420 [facility] [address] [place] [address] Physician Wiring Inspector Endocrinology, Diabetes, and Metabolism 03/01/22 Suzan [place] MD [address] [place] [address] Nephrology 06/30/23 Yasmeen [place] MD 500 [place] [address] Nephrology 10/24/23 Yasmeen [place] MD [address] [place] [address] Assigned Nephrology Provider 11/08/23 documented as of this encounter
--- OUTSIDE RECORDS SUMMARY | 2024-01-17 17:24 | XMS_ITS | Encounter Summary ---
Author Organization [facility] Address [address] [place] [address] Care Team Providers Care Electrical Cad Technician Name Role Phone Rubén [place] MD Primary Care Provider [phone] Pamela Blanco ELECTRICAL PROJECT MANAGER Unavailable Pedro Segura MD Unavailable [phone] Freddy Craft MD Unavailable Nicole Carranza ELECTRICAL PROJECT MANAGER Unavailable [phone] Andressa Ruiz-C Unavailable [phone] Suzan [place] MD Unavailable [phone] Yasmeen Powers MD Unavailable [phone] Yasmeen Powers MD Unavailable [phone] Reason for Visit * Reason Onset Date Comments Prior Auth - Medication 12/28/2023 Tacrolim us 1mg Encounter Details Date Type Department Care Team (Late st Contact Info) Description 12/28/2023 Telephone [facility] [address] [place] [address] Laurie Carmen LPN Prior Auth [...] as of this encounter Care Teams Electrical Cad Technician Relationship Specialty Start Date End Date Rubén [place]le MD PCP - General Family Practice 03/08/16 Pamela Blanco ELECTRICAL PROJECT MANAGER [facility] [address] [place] [address] Referring Physician 07/13/16 Pedro Segura MD [facility] [address] [place] [address] Nephrology 10/03/16 Freddy Craft MD 516 [facility] [address] [place], [place] [address] Assigned Gastroenterology Provider 02/08/20 Nicole Carranza NP 420 [facility] [address] [place], [place] [address] Assigned Heart and Vascular Provider 01/09/22 Andressa uRiz PA-C 420 [facility] [address] [place], [place] [address] Physician Fruit Inspector Endocrinology, Diabetes, and Metabolism 03/01/22 Suzan [place] MD 420 [place], [place] [address] Nephrology 06/30/23 Yasmeen Powers MD 500 [place] [address] Nephrology 10/24/23 Yasmeen Powers MD [address] [place], [place] [address] Assigned Nephrology Provider 11/08/23 documented as of this encounter
--- OUTSIDE RECORDS SUMMARY | 2024-01-17 17:24 | XMS_ITS | Referral Summary ---
Author Organization [place] Address [address] [place] [address] Care Team Providers Care Rigging Loft Repairer Name Role Phone Rubén Boyle MD Primary Care Provider [phone] Pamela Blanco STREETCAR REPAIRER HELPER Unavailable Pedro Segura MD Unavailable Freddy Craft MD Unavailable [phone] [address] Guevara STREETCAR REPAIRER HELPER Unavailable Andressa Ruiz-Citlali Unavailable Suzan Harry MD Unavailable [phone] Yasmeen Powers MD Unavailable [phone] Yasmeen Powers MD Unavailable [phone] Encounters Date Type Department Care Team Description 01/11/2024 Telephone [facility] [address] [place] [phone] Felipa Raya, candy mixer 01/03/2024 MyC Medical Advice [facility] [address] [place] [phone] Calli Hall RN 12/28/2023 Telephone [facility] [address] [place] [phone] Laurie Carmen LPN Prior Auth - Medication (Tacrolimus 1mg) 12/16/2023 Telephone [facility] [address] [place] [phone] Malinda Alves, candy mixer Immunosuppression Management 12/13/2023 External Order Results [facility] [address] [place] [address] Outside, Provider 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) 11/18/2023 Orders Only [facility] [address] [place] [phone] Freddy Craft MD 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) (Primary Dx) 10/24/2023 Telephone [facility] [address] [place] [phone] Felipa Raya, BENTLEY Appointment 10/18/2023 Telephone [facility] [address] [address] Mónica Suarez Prior Auth - Medication (Azathioprine 50 mg PA Not Needed) 10/18/2023 Telephone [facility] [address] [phone] Mónica Suarez Prior Auth - Medication (Tacrolimus PA Not Needed) 10/18/2023 Telephone [facility] Transplant [address] [address] Laurie Carmen LPN 10/17/2023 Orders Only [facility] [address] [place] [phone] Felipa Raya, RN 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 transplant [...] migh t be different from the original. [facility] in [place], [place] Fax #: [phone] Pharm - [facility]. Problem Noted Date Diagnosed Date [...] DT Respiratory Rate 14 03/02/2022 4:40 AM CANE PILER Oxygen Saturation 96% 10/11/2023 11:30 AM CDT Inhaled Oxygen Concentration - - Weight 96.3 kg (212 lb 3.2 oz) 10/11/2023 11:30 AM CDT Height 175.3 cm (5' 9) 08/30/2022 8:54 AM CDT Body Mass Index 31.34 08/30/2022 8:54 AM CDT Plan of Treatment Not on file Medical Devices Implanted Type Area Franchise Specialist Device Identifier Shelf Expiration Date Model / Serial / Lot Stent Coronary Gelacio Synergy Xd Mr Us [id number] - [id number] Implanted:Qty: 1 on 02/12/2022 at [facility] Stent Drug Eluting (GELACIO) [employer] 03/09/2023 [id number] / / [id number] Stent Coronary Gelacio Brenda Xd Mr Us [id number] - [id number] Implanted:Qty: 1 on 02/12/2022 at [facility] Stent Drug Eluting (GELACIO) [employer] 03/16/2023 [id number] / / [id number] Closure Angioseal 6fr [id number] - [id number] Implanted:Qty: 1 on 02/12/2022 at [facility] 11/15/2022 [id number] / / [id number] Closure Angioseal 6fr [id number] - [id number] Implanted:Qty: 1 on 02/12/2022 at [facility] 11/15/2022 [id number] / / [id number] Closure Angioseal 6fr 245271 - [id number] Implanted:Qty: 1 on 02/24/2022 at [facility] 09/15/2022 [id number] / / [id number] Explanted Type Area Franchise Specialist Device Identifier Shelf Expiration Date Model / Serial / Lot Stent Ureteral Soft Universa [id number]-518 [id number] Implanted:Qty: 1 on 07/11/2016 by Aime Vu MD at [facility] Explanted:Qty: 1 on 08/19/2016 by Aime Vu MD at [facility] Stent N/A: Ureter [employer] 02/12/2019 US-518 / / [id number] Procedures Procedure Name Priority Date/Time Associated Diagnosis Comments TACROLIMUS BY TANDEM MASS SPECTROMETRY Routine 12/13/2023 12:00 AM CDT Liver replaced by transplant (H) CBC WITH PLATELETS Routine 09/30/2023 9: 40 AM CDT Liver replaced by transplant (H) BASIC METABOLIC PANEL Routine 09/30/2023 9:40 AM CDT Liver replaced by transplant (H) HEPATIC FUNCTION PANEL Routine 04/05/2023 12:30 PM CANE PILER Liver replaced by transplant (H) LIPID PROFILE Routine 01/31/2023 8:54 AM CDT S/P TAVR (transcatheter aortic valve replacement) Coronary artery disease involving [place] coronary artery of [place] heart without angina pectoris UA MACROSCOPIC WITH REFLEX TO MICRO AND CULTURE Routine 02/25/2022 9:[address] ABDOMEN PELVIS W/O CONTRAST STAT 02/25/2022 12:10 AM CANE PILER HEMOGLOBIN A1C Routine 02/24/2022 9:[address] ANGIOGRAM TAVR Routine 01/13/2022 12: 33 PM CDT Other ill-defined heart diseases Severe aortic stenosis HEPATITIS C ANTIBODY Routine 05/13/2020 8:50 AM CANE PILER ALBUMIN RANDOM URINE QUANTITATIVE Routine 05/17/2019 10:05 AM CANE PILER COLONOSCOPY Routine 03/31/2017 10:57 AM CANE PILER TSH STAT 07/02/2016 3:42 PM CDT from [...] SCANS) * Hepatic panel (04/05/2023 12:30 PM CANE PILER) Protein Total (External) 6.3 6.0 - 8.3 [...] BLOOD SPECIMEN / Unknown 04/05/2023 12:30 PM CANE PILER Narrative BREEZE PFT - 04/07/2023 6:33 AM CANE PILER Verified by Yamil Santo on 04/07/2023. Freddy Dumont MD LAB - BLOOD ORD ERABLES Performing Organization Address City/State/[facility] Co de Phone Number SAMANTHA PFT NON-INTERFACED (ONBASE SCANS) * (ABNORMAL) Lipid Profile (01/31/2023 8:54 AM CDT) Cholesterol 104 <200 mg/dL 01/31/2023 9:30 AM CDT [facility] Triglycerides 225(H) <150 mg/dL 01/31/2023 9:30 AM CDT [facility] Direct Measure HDL 33(L) >=40 mg/dL 01/31/2023 9:30 AM CDT [facility] LDL Cholesterol Calculated 26 <=100 mg/dL 01/31/2023 9:30 AM CDT [facility] Non HDL Cholesterol 71 <130 mg/dL 01/31/2023 9:30 AM CDT [facility] Blood STRUCTURE OF LEFT UPPER LIMB / Unknown Venipuncture / Unknown 01/31/2023 8:54 AM CDT 01/31/2023 8:57 AM CDT Narrative [facility] - 01/31/2023 9:30 [...] ORDERA BLES [facility] [place] [address] [facility] 1st [place] [address] * (ABNORMAL) UA reflex to Microscopic and Culture (02/25/2022 9:55 PM CANE PILER) Color Urine Yellow Colorless, Straw, Light Yellow, Yellow 02/25/2022 10:20 PM CANE PILER [facility] Appearance Urine Clear Clear 02/26/20 10:20 PM CANE PILER [facility] Glucose Urine 100(A) Negative mg/dL 02/25/2022 10:20 PM CANE PILER [facility] Bilirubin Urine Negative Negative 10:20 PM CANE PILER [facility] Ketones Urine 20(A) Negative mg/dL 02/25/2022 10:20 PM CANE PILER [facility] Specific Taft Urine 1.026 1.003 - 1.035 02/25/2022 10:20 PM CANE PILER [facility] Blood Urine Negative Negative 02/25/2022 10:20 PM CANE PILER [facility] pH Urine 5.0 5.0 - 7.0 02/25/2022 10:20 PM CANE PILER [facility] Protein Albumin Urine 10(A) Negative mg/dL 02/25/2022 10:20 PM CANE PILER [facility] Urobilinogen Urine Normal Normal, 2.0 mg/dL 02/25/2022 10:20 PM CANE PILER [facility] Nitrite Urine Negative Negative 02/25/2022 10:20 PM CANE PILER [facility] Leukocyte Esterase Urine Negative Negative 02/25/2022 10:20 PM CANE PILER [facility] Mucus Urine Present(A) None Seen /LPF 02/25/2022 10:20 PM CANE PILER [facility] RBC Urine <1 <=2 /HPF 02/25/2022 10:20 PM CANE PILER [facility] WBC Urine 1 <=5 /HPF 02/25/2022 10:20 PM CANE PILER [facility] Squamous Epithelials Urine <1 <=1 /HPF 02/25/2022 10:20 PM CANE PILER [facility] Hyaline Casts Urine 4(H) <=2 /LPF 02/25/2022 10:20 PM CANE PILER [facility] Urine URINE SPECIMEN OBTAINED BY CLEAN CATCH PROCEDURE / Unknown Non-blood Collection / Unknown 02/25/2022 9:55 PM CANE PILER 02/25/2022 10:01 PM CANE PILER Narrative [facility] - 02/25/2022 10:20 PM CANE PILER Urine Culture not indicated Rubén Zambrano MD LAB - URINE ORDERABL ES [facility] Core Lab [address] [facility], Room [address] [place] [phone] [phone] * CT Abdomen Pelvis w/o Contrast (02/25/2022 12:10 AM CANE PILER) Anatomical Region Laterality Modality Abdomen/Pelvis, SUBRAD CT MINA DY, UMP CT ABDOMEN PELVIS, RAD CT Computed Tomography Impressions 02/25/2022 8:18 AM CANE PILER IMPRESSION: 1. 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 2. Colonic diverticulosis without evidence of acute diverticulitis. 3. No intra-abdominal findings to suggest etiology for patient's symptoms. I have personally reviewed the examination and initial interpretation and I agree with the findings. SEA WOOD MD Narrative 02/25/2022 8:18 AM CANE PILER EXAMINATION: CT ABDOMEN PELVIS W/O CONTRAST, 02/25/2022 [...] lesions. Unremarkable spleen. No adrenal nodules. Atrophic [place] kidneys with simple renal cyst in the [...] lesions. Unremarkable spleen. No adrenal nodules. Atrophic [place] kidneys with simple renal cyst in the [...] * (ABNORMAL) Hemoglobin A1c (02/24/2022 9:42 PM CANE PILER) Hemoglobin A1C 5.7(H) <5.7 % 02/24/2022 11:58 PM CANE PILER [facility] Comment: Normal <5.7% Prediabetes 5.7-6.4% ?? Diabetes 6.5% or higher Note: Adopted from ADA consensus guidelines. Blood STRUCTURE OF LEFT HAND / Unknown Venipuncture / Unknown 02/24/2022 9:42 PM CANE PILER 02/24/2022 9:55 PM CANE PILER Theresa Ayala APRN DRUG ENFORCEMENT ADMINISTRATION AGENT LAB - BLOOD OR DERABLES [facility] Core Lab [address] [facility] [address] [facility], Room [address] [place] [address], [facility] [phone] * CT Angiogram TAVR (01/13/2022 12:33 PM CDT) Anatomical Region Laterality Modality Lower Extremity, [facility] CT CTA Comp uted Tomography Impressions [...] aortic root calcification. 3. ??There are significant [place] coronary calcifications. 4. ??The arch vessel branching pattern is normal. 5. ??The suprarenal abdominal aorta is moderately calcified; infrarenal abdominal aorta is severely calcified 6. ??Widely patent origins of celiac trunk, superior mesenteric artery and inferior mesenteric artery. ??Single bilateral renal arteries with widely patent origins. 7. ??There is no acute aortic pathology, such as dissection, intramural hematoma, or contained rupture. MEASUREMENTS: Imaging Manager dimensions of the thoracoabdominal aorta are as [...] in a spiral gated mode with limited xpitk-zd-[id number] followed by gated high pitch spiral CTA of the chest, abdomen, pelvis at 120 kVP to evaluate the thoracoabdominal aorta and iliac vasculature. Scan protocol was optimized to minimize radiation exposure. The total radiation exposure was 1817 DLP and 25.4 mSv. Images were reconstructed and analyzed on a [employer] Workstation. Procedure Note Praful Bowen MD - [...] in a spiral gated mode with limited cpkyj-jr-lilw followed by gated high pitch spiral CTA of the chest, abdomen, pelvis at 120 kVP to evaluate the thoracoabdominal aorta and iliac vasculature. Scan protocol was optimized to minimize radiation exposure. The total radiation exposure was 1817 DLP and 25.4 mSv. Images were reconstructed and analyzed on a [employer] Workstation. IMPRESSION: 1. See below for TAVR [...] aortic root calcification. 3. There are significant [place] coronary calcifications. 4. The arch vessel branching pattern is normal. 5. The suprarenal abdominal aorta is moderately calcified; infrarenal abdominal aorta is severely calcified 6. Widely patent origins of celiac trunk, superior mesenteric artery and inferior mesenteric artery. Single bilateral renal arteries with widely patent origins. 7. There is no acute aortic pathology, such as dissection, intramural hematoma, or contained rupture. MEASUREMENTS: Imaging Manager dimensions of the thoracoabdominal aorta are as [...] separately PRAFUL GORDON MD Deshawn Yael Guevara STREETCAR REPAIRER HELPER IMG CT ORDERABLES * Hepatitis C antibody (05/13/2020 8:50 AM CANE PILER) Pathologist [facility] Hepatitis C Antibody (External) Negative Negative LABDE SCAN Blood specimen (specimen) 05/13/2020 8:50 AM CANE PILER Narrative SAMANTHA PFT - 05/15/2020 7:27 AM CANE PILER Verified by Cruzito Marlow on 05/15/2020. Patient Reported LAB - BLOOD ORDERABL ES SAMANTHA PFT LABDE SCAN * Albumin Random Urine Quantitative with Creat Ratio (05/17/2019 10:05 AM CANE PILER) Pathologist [facility] Microalbumin Urine (External) 1 mg/dl LABDE SCAN Creatinine Urine mg/dL (External) 106 mg/dl LABDE SCAN Microalbumin Urine mg/g Cr (External) 9 0 - 30 mg/g LABDE SCAN Urine specimen (specimen) 05/17/2019 10:05 AM CANE PILER Narrative AMNAE PFT - 05/23/2019 7:16 AM CANE PILER Verified by Pedrito Stallworth on 05/23/2019. Patient Reported LAB - URINE ORDERABL ES SAMANTHA PFT LABDE SCAN * COLONOSCOPY (03/31/2017 10:57 AM CANE PILER) Pathologist [facility] COLONOSCOPY [address] [place] [id number] [phone] ? Endoscopy Department Patient Name: Lito Mora [...] of the exam. Signature of teaching physician [id number] Ballard MD Number of Addenda: 0 Note Initiated On: 03/31/2017 10:57 AM Scope In: Scope Out: RADIOLOGY RESULTS 03/31/2017 10:5 7 AM CANE PILER Freddy Dumont MD PROCEDURES RADIOLOGY RESULTS * TSH (07/02/2016 3:42 PM CDT) TSH 0.95 0.40 - 4.00 mU/L [facility] Blood specimen (specimen) 07/02/2016 3:42 PM CDT 07/02/2016 4:14 PM CDT Angela Dias MD LAB - BLOOD ORDERAB LES [facility] [address] [place] [address] from Last 3 Months or Most Recently Relevant to Health Maintenance Additional Health Concerns Infection Onset Date 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/16 urine, 07/10/16 rectal swab 06/21/2016 06/21/2016 Advance Directives For more information, please contact: [phone] * Full Code (Latest Code Status on [...] 3:12 PM 11/15/2016 8:38 PM Care Teams Rigging Loft Repairer Relationship Specialty Start Date End Date Rubén Boyle MD PCP - General Family Practice 03/08/16 Pamela Blanco NP [facility] [address] [place], [place] [address] Referring Physician 07/13/16 Pedro Segura MD [facility] [address] [place], [place] [address] Nephrology 10/03/16 Freddy Craft MD [address] [place] [address] [id number] Assigned Gastroenterology Provider 02/08/20 Deshawn Guevara NP [address] [facility] [address] [place], [place] [address] Assigned Heart and Vascular Provider 01/09/22 Andressa Ruiz PA-C 420 [facility] [address] [place], [place] [address] Physician Carrier Washer Endocrinology, Diabetes, and Metabolism 03/01/22 Suzan Harry MD [address] [place], [place] [address] Nephrology 06/30/23 Yasmeen Powers MD [address] [place], [place] [address] Nephrology 10/24/23 Yasmeen Powers MD [address] [place] [address] Assigned Nephrology Provider 11/08/23
--- OUTSIDE RECORDS SUMMARY | 2024-01-17 17:24 | XMS_ITS | Encounter Summary ---
Author Organization [facility] Address [address] [place] [address] Care Team Providers Care Coagulating Bath Operator Name Role Phone Rubén Boyle MD Primary Care Provider Pamela Blanco RIVER CROSSING SUPERVISOR Unavailable Pedro Segura MD Unavailable [phone] Freddy Craft MD Unavailable [phone] Nicole Carranza RIVER CROSSING SUPERVISOR Unavailable [phone] Andressa Ruiz-C Unavailable Suzan Harry MD Unavailable Yasmeen Powers MD Unavailable [phone] Yasmeen Powers MD Unavailable [phone] Encounter Details Date Type Department Care Team (Late st Contact Info) Description 12/13/2023 External Order Results [facility] [address] [place] [address] Outside, Provider Liver replaced by transplant (H) [...] documented as of this encounter Care Teams Coagulating Bath Operator Relationship Specialty Start Date End Date Rubén Boyle MD PCP - General Family Practice 03/08/16 Pamela Blanco RIVER CROSSING SUPERVISOR [facility] [address] [place] [address] Referring Physician 07/13/[address] [facility] [address] [place] [address] Nephrology 10/03/16 Freddy Craft MD [address] [facility] [address] [place] [address] Assigned Gastroenterology Provider 02/08/20 Nicole Carranza NP 420 [facility] [address] [place] [address] Assigned Heart and Vascular Provider 01/09/22 Andressa Ruiz PA-C 420 [facility] [address]03 [place] [address] Physician Patient Access Specialist Endocrinology, Diabetes, and Metabolism 03/01/22 Suzan Harry MD [address] [place], [place] [address] Nephrology 06/30/23 Yasmeen Powers MD 500 [place] [address] Nephrology 10/24/23 Yasmeen Powers MD [address] [place] [address] Assigned Nephrology Provider 11/08/23 documented as of this encounter
--- OUTSIDE RECORDS SUMMARY | 2024-01-17 17:24 | XMS_ITS | Encounter Summary ---
Author Organization [place] Address [address] [place] [address]. [place] [address] Care Team Providers Care Flute Polisher Name Role Phone Rubén Boyle MD Primary Care Provider Pamela Blanco SUB ARC OPERATOR Unavailable [phone] Pedro Segura MD Unavailable Freddy Craft MD Unavailable [phone] Abdifatah Van MD Unavailable Nicole Carranza SUB ARC OPERATOR Unavailable [phone] Anderssa Ruiz-C Unavailable Suzan Harry MD Unavailable [phone] Encounter Details Date Type Department Care Team (Late st Contact Info) Description 10/17/2023 Orders Only [facility] [address] [place] [address] Felipa Raya, BENTLEY Kidney replaced [...] documented as of this encounter Care Teams Flute Polisher Relationship Specialty Start Date End Date Rubén Boyle MD PCP - General Family Practice 03/08/16 Pamela Blanco SUB ARC OPERATOR [facility] [address] [place], [place] [address] Referring Physician 07/13/16 Pedro Segura MD [facility] [address] [place], [place] [address] Nephrology 10/03/16 Freddy Craft MD [address] [facility] [address] [place], [place] [address] Assigned Gastroenterology Provider 02/08/20 Abdifatah Van MD [address] [facility] [address] [place] [place], [place] [address] Assigned Nephrology Provider 07/13/20 11/07/23 Nicole Carranza NP 420 [facility] [address] [place], [place] [address] Assigned Heart and Vascular Provider 01/09/22 Andressa Ruiz PA-C 420 [facility] [address] [place] [address] Physician Supervisor Paper Machine Endocrinology, Diabetes, and Metabolism 03/01/22 Suzan Harry MD [address] [place] [address] Nephrology 06/30/23 documented as of this encounter
--- OUTSIDE RECORDS SUMMARY | 2024-01-17 17:24 | XMS_ITS | Encounter Summary ---
Author Organization [place] Address [address] [place] [address] Care Team Providers Care Dental Services Director Name Role Phone Rubén Boyle MD Primary Care Provider [phone] Pamela Blanco PRINCIPAL ELECTRICAL ENGINEER Unavailable Pedro Segura MD Unavailable Freddy Craft MD Unavailable Abdifatah Van MD Unavailable Nicole Carranza PRINCIPAL ELECTRICAL ENGINEER Unavailable Andressa Ruiz-C Unavailable Suzan Harry MD Unavailable [phone] Reason for Visit * Reason Comments RECHECK K/P POST RETURN TXP NEPH - Return, Post Kidney Transplant Follow up, scheduled with patient Encounter Details Date Type Department Care Team (Late st Contact Info) Description 10/11/2023 11:30 AM CDT Office Visit [facility] [address] [place] [address] Suzan Harry MD [address] [place] [address] Yasmeen Powers MD [address] [place] [address] Type 2 diabetes mellitus with diabetic [...] (<0.2 grams) - DSA Hx: Moderate DSA ([id number] mfi) to DR51 - Last cPRA: Not [...] (PEN NEEDLES 08/31) 31G X 8 MM [facility] For administering insulin at home QID. multivitamin, [...] redirect to the Timeline version of the [employer] SmartLink. Recent Labs Lab Test 04/05/22 0749 [...] as of this encounter Care Teams Dental Services Director Relationship Specialty Start Date End Date Rubén Boyle MD PCP - General Family Practice 03/08/16 Pamela Blanco NP [facility] [address] [place] [address] Referring Physician 07/13/16 Pedro Segura MD [facility] [address] [place] [address] Nephrology 10/03/16 Freddy Craft MD [address] [place] [address] [id number] Assigned Gastroenterology Provider 02/08/20 Abdifatah Van MD [address] [facility] [address] [place] [address] [place], [place] [address] Assigned Nephrology Provider 07/13/20 11/07/23 Nicole Carranza NP 420 [facility] [address] [place], [place] [address] Assigned Heart and Vascular Provider 01/09/22 Andressa Ruiz PA-C 420 [facility] [address] [place] [address] Physician Head Of Digital Advertising & Integration Endocrinology, Diabetes, and Metabolism 03/01/22 Suzan Harry MD [address] [place], [place] [id number] Nephrology 06/30/23 documented as of this encounter
--- OUTSIDE RECORDS SUMMARY | 2024-01-17 17:24 | XMS_ITS | Encounter Summary ---
Author Organization [facility] Address [address] [place] [address] Care Team Providers Care Cotton Header Name Role Phone Rubén Boyle MD Primary Care Provider Pamela Blanco CABLE STRANDER Unavailable Pedro Segura MD Unavailable Freddy Craft MD Unavailable [phone] Abdifatah Van MD Unavailable Nicole Carranza CABLE STRANDER Unavailable [phone] Andressa Ruiz-C Unavailable [phone] Suzan Harry MD Unavailable [phone] Yasmeen Powers MD Unavailable [phone] Yasmeen Powers MD Unavailable [phone] Reason for Visit * Reason Onset Date Comments Appointment 10/24/2023 Encounter Details Date Type Department Care Team (Late st Contact Info) Description 10/24/[address] [facility] [address] [place] [address] Felipa Raya, RN Appointment Social [...] been sent to his PCP clinic in [place]. Thank you! 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 06/21/2016 06/21/2016 documented as of this encounter Care Teams Cotton Header Relationship Specialty Start Date End Date Rubén Boyle MD PCP - General Family Practice 03/08/16 Pamela Blanco CABLE STRANDER [facility] [address] [place] [address] Referring Physician 07/13/16 Pedro Segura MD [facility] [address] [place] [address] Nephrology 10/03/16 Freddy Craft MD [address] [place] [address], [place] [address] Assigned Gastroenterology Provider 02/08/20 Abdifatah Van MD 717 [facility] [address] [place] [address] Assigned Nephrology Provider 07/13/20 11/07/23 Nicole Carranza NP 420 [facility] 508 [place] [address] Assigned Heart and Vascular Provider 01/09/22 Andressa Ruiz PA-C 420 [facility] 803 [place] [address] Physician Citrus Picker Endocrinology, Diabetes, and Metabolism 03/01/22 Suzan Harry MD 420 [place] [address] Nephrology 06/30/23 Yasmeen Powers MD 500 [place] [address] Nephrology 10/24/23 Yasmeen Powers MD 500 [place] [address] Assigned Nephrology Provider 11/08/23 documented as of this encounter
--- OUTSIDE RECORDS SUMMARY | 2024-01-17 17:24 | XMS_ITS | Encounter Summary ---
Author Organization [place] Address [address] [place] [address] Care Team Providers Care Core Drilling Supervisor Name Role Phone Rubén Boyle MD Primary Care Provider Pamela Blanco CONSTRUCTION REP Unavailable Pedro Segura MD Unavailable Freddy Craft MD Unavailable Abdifatah Van MD Unavailable Nicole Carranza CONSTRUCTION REP Unavailable [phone] Andresas Ruiz PA-C Unavailable Suzan Harry MD Unavailable [phone] Reason for Visit * Reason Onset Date Comments Prior Auth - Medication 10/18/2023 Azathiop rine 50 mg PA Not Needed Encounter Details Date Type Department Care Team (Late st Contact Info) Description 10/18/2023 Telephone [facility] Blood and Marrow Transplant Program [address] [address] Mónica Suarez Prior Auth - [...] documented as of this encounter Care Teams Core Drilling Supervisor Relationship Specialty Start Date End Date Rubén Boyle MD PCP - General Family Practice 03/08/16 Pamela Blanco NP [facility] [address] [place] [address] Referring Physician 07/13/16 Pedro Segura MD [facility] [address] [place] [address] Nephrology 10/03/16 Freddy Craft MD 516 [facility] [address] [place] [address] Assigned Gastroenterology Provider 02/08/20 Abdifatah Van MD 717 [facility] [address] [place] [address] Assigned Nephrology Provider 07/13/20 11/07/23 Nicole Carranza NP 420 [facility] 508 [place] [address] Assigned Heart and Vascular Provider 01/09/22 Andressa Ruiz PA-C 420 [facility] 803 [place], [place] [address] Physician Optical Systems Engineer Endocrinology, Diabetes, and Metabolism 03/01/22 Suzan Harry MD 420 [place], [place] [address] Nephrology 06/30/23 documented as of this encounter
--- OUTSIDE RECORDS SUMMARY | 2024-01-17 17:24 | XMS_ITS | Encounter Summary ---
Author Organization [facility] Address [address] [place] [address] Care Team Providers Care Seat Builder Name Role Phone Rubén Boyle MD Primary Care Provider Pamela Blanco CHANNEL SALES DIRECTOR Unavailable [phone] Pedro Segura MD Unavailable [phone] Freddy Craft MD Unavailable [phone] Abdifatah Van MD Unavailable Nicole Carranza CHANNEL SALES DIRECTOR Unavailable [phone] Andressa Ruiz-C Unavailable Suzan Harry MD Unavailable [phone] Encounter Details Date Type Department Care Team [...] documented as of this encounter Care Teams Seat Builder Relationship Specialty Start Date End Date Rubén Boyle MD PCP - General Family Practice 03/08/16 Pamela Blanco NP [facility] [address] [place] [address] Referring Physician 07/13/16 Pedro Segura MD [facility] [address] [place], [place] 200697 Nephrology 10/03/16 Freddy Craft MD 516 [facility] [place], [place] [address]85 Assigned Gastroenterology Provider 02/08/20 Abdifatah Van MD [address] [facility] [address] [place], [place] [address]64 Assigned Nephrology Provider 07/13/20 11/07/23 Nicole Carranza NP 420 [facility] 508 [place], [place] 515775 Assigned Heart and Vascular Provider 01/09/22 Andressa Ruiz PA-C 420 [facility] 803 [place], [place] [address] Physician Cosmetics Presser Endocrinology, Diabetes, and Metabolism 03/01/22 Suzan Harry MD [address] [place] [address] Nephrology 06/30/23 documented as of this encounter
[2024-01-17 17:25] LABS: Potassium* 4.9 mmol/L (3.6-5.1)
--- OUTSIDE RECORDS SUMMARY | 2024-01-17 17:25 | XMS_ITS | Encounter Summary ---
Author Organization [place] Address [address] [place] [address] Care Team Providers Care It Support Manager Name Role Phone Rubén Boyle MD Primary Care Provider Pamela Blanco FLUX PLANT OPERATOR Unavailable Pedro Segura MD Unavailable [phone] Freddy Craft MD Unavailable [phone] Abdifatah Van MD Unavailable Nicole Carranza FLUX PLANT OPERATOR Unavailable Andressa Ruiz-C Unavailable Rubén Gunter [facility] Unavailable Andressa Ruiz-C Unavailable [phone] Suzan Harry MD Unavailable [phone] Yasmeen Powers MD Unavailable Yasmeen Powers MD Unavailable [phone] Encounter Details Date Type Department Care Team (Late st Contact Info) Description 01/13/2023 MyC Medical Advice [facility] [address] [place] [address] Lashanda Hsieh, [facility] Social History Tobacco Use Types [...] as of this encounter Care Teams It Support Manager Relationship Specialty Start Date End Date Rubén Boyle MD PCP - General Family Practice 03/08/16 Pamela Blanco FLUX PLANT OPERATOR [facility] [address] [place] [address] Referring Physician 07/13/16 Pedro Segura MD [facility] [address] [place] [address] Nephrology 10/03/16 Freddy Craft MD 516 [facility] [address] [place], [place] 5064[address] Assigned Gastroenterology Provider 02/08/20 Abdifatah Van MD 717 [facility] [address] [place], [place] [address]144 Assigned Nephrology Provider 07/13/20 11/07/23 Nicole Carranza NP 420 [facility] 508 [place] [address] Assigned Heart and Vascular Provider 01/09/22 Andressa Ruiz PA-C 420 [facility] 803 [place] [address] Physician Ice Platform Supervisor Endocrinology, Diabetes, and Metabolism 03/01/22 Rubén Gunter [facility] [address] [place] [address] Assigned MTM Pharmacist 02/27/22 Andressa Ruiz PA-C 420 [facility] 803 [place] [address] Assigned Endocrinology Provider 03/13/22 09/07/23 Suzan Harry MD [address] [place] [address] Nephrology 06/30/23 Yasmeen Powers MD 500 [place] [address] Nephrology 10/24/23 Yasmeen Powers MD 500 [place] [address] Assigned Nephrology Provider 11/08/23 documented as of this encounter
--- OUTSIDE RECORDS SUMMARY | 2024-01-17 17:25 | XMS_ITS | Encounter Summary ---
Author Organization [facility] Address [address] [place] [address] Care Team Providers Care Electronics Department Manager Name Role Phone Rubén Boyle MD Primary Care Provider Pamela Blanco PRESS LOADER Unavailable Pedro Segura MD Unavailable [phone] Freddy Craft MD Unavailable [phone] Abdifatah Van MD Unavailable Nicole Carranza PRESS LOADER Unavailable nAdressa RuizC Unavailable Rubén Gunter [facility] Unavailable Andressa Ruiz-C Unavailable Suzan Harry MD Unavailable [phone] Yasmeen Powers MD Unavailable Yasmeen Powers MD Unavailable [phone] Encounter Details Date Type Department Care Team (Late st Contact Info) Description 04/06/2023 External Order Results [facility] [address] [place] [address] Outside, Provider Liver replaced by transplant (H) [...] BASIC METABOLIC PANEL Routine 04/06/2023 10:50 AM RECREATIONAL PROGRAMS DIRECTOR Liver replaced by transplant (H) documented in this encounter Results * (ABNORMAL) Basic metabolic panel (04/06/2023 10:50 AM RECREATIONAL PROGRAMS DIRECTOR) Sodium (External) 138 135 - 149 mmol/L [...] BLOOD SPECIMEN / Unknown 04/06/2023 10:50 AM RECREATIONAL PROGRAMS DIRECTOR Narrative SAMANTHA PFT - 04/08/2023 6:41 AM RECREATIONAL PROGRAMS DIRECTOR Verified by Yamil Santo on 04/08/2023. Freddy [...] documented as of this encounter Care Teams Electronics Department Manager Relationship Specialty Start Date End Date Rubén Boyle MD PCP - General Family Practice 03/08/16 Pamela Blanco NP [facility] [address] [place] [address] Referring Physician 07/13/16 Pedro Segura MD [facility] [address] [place] [address] Nephrology 10/03/16 Freddy Craft MD 516 [facility] [address] [place] [address] Assigned Gastroenterology Provider 02/08/20 Abdifatah Van MD 717 [facility] [address] [place] [address] Assigned Nephrology Provider 07/13/20 11/07/23 Nicole Carranza NP 420 [facility] [address] [place] [address] Assigned Heart and Vascular Provider 01/09/22 Andressa Ruiz PA-C 420 [facility] 803 [place] [address] Physician Field Operations Manager Endocrinology, Diabetes, and Metabolism 03/01/22 Rubén Gunter [facility] 909 [place] [address] Assigned MTM Pharmacist 02/27/22 Andressa Ruiz PA-C 420 [facility] 803 [place] [address] Assigned Endocrinology Provider 03/13/22 09/07/23 Suzan Harry MD [address] [place] [address] Nephrology 06/30/23 Yasmeen Powers MD 500 [place] [address] Nephrology 10/24/23 Yasmeen Powers MD 500 [place] [address] Assigned Nephrology Provider 11/08/23 documented as of this encounter
--- OUTSIDE RECORDS SUMMARY | 2024-01-17 17:25 | XMS_ITS | Encounter Summary ---
Author Organization [place] Address [address] [place] [address] Care Team Providers Care Hot Plate Press Operator Name Role Phone Rubén Boyle MD Primary Care Provider Pamela Blanco PROTOTYPE MACHINE OPERATOR Unavailable [phone] Pedro Segura MD Unavailable Freddy Craft MD Unavailable [phone] Abdifatah Van MD Unavailable Nicole Carranza PROTOTYPE MACHINE OPERATOR Unavailable Andressa RuizC Unavailable Rubén Gunter [facility] Unavailable Andressa Ruiz-C Unavailable Suzan Harry MD Unavailable [phone] Yasmeen Powers MD Unavailable [phone] Yasmeen Powers MD Unavailable [phone] Encounter Details Date Type Department Care Team (Late st Contact Info) Description 04/05/2023 External Order Results [facility] [address] [place] [address] Outside, Provider Liver replaced by transplant (H) [...] TANDEM MASS SPECTROMETRY Routine 04/05/2023 12:30 PM EMERGENCY RESPONSE COORDINATOR Liver replaced by transplant (H) MAGNESIUM Routine 04/05/2023 12:30 PM EMERGENCY RESPONSE COORDINATOR HEPATIC FUNCTION PANEL Routine 04/05/2023 12:30 PM EMERGENCY RESPONSE COORDINATOR Liver replaced by transplant (H) DIFFERENTIAL Routine 04/05/2023 12:30 PM EMERGENCY RESPONSE COORDINATOR BASIC METABOLIC PANEL Routine 04/05/2023 12:30 PM EMERGENCY RESPONSE COORDINATOR Liver replaced by transplant (H) CBC WITH PLATELETS Routine 04/05/2023 12 :30 PM EMERGENCY RESPONSE COORDINATOR Liver replaced by transplant (H) documented in this encounter Results * Tacrolimus by Tandem Mass Spectrometry (04/05/2023 12:30 PM EMERGENCY RESPONSE COORDINATOR) Tacrolimus(FK-5 06) (External) 9.3 5.0 - 15.0 ng/mL NON-INTERFACED (ONBASE SCANS) Blood BLOOD SPECIMEN / Unknown 04/05/2023 12:30 PM EMERGENCY RESPONSE COORDINATOR Narrative SAMANTHA PFT - 04/12/2023 12:23 PM EMERGENCY RESPONSE COORDINATOR Verified by Cruzito Marlow on 04/12/2023. Freddy Dumont MD LAB - BLOOD ORD ERABLES SAMANTHA PFT NON-INTERFACED (ONBASE SCANS) * (ABNORMAL) Magnesium (04/05/2023 12:30 PM EMERGENCY RESPONSE COORDINATOR) Pathologist [facility] Magnesium (External) 1.3(L) 1.5 - 2.6 mg/dL NON-INTERFACED (ONBASE SCANS) Blood BLOOD SPECIMEN / Unknown 04/05/2023 12:30 PM EMERGENCY RESPONSE COORDINATOR Narrative SAMANTHA PFT - 04/07/2023 6:34 AM EMERGENCY RESPONSE COORDINATOR Verified by Yamil Santo on 04/07/2023. Freddy Dumont MD LAB - BLOOD ORD ERABLES SAMANTHA PFT NON-INTERFACED (ONBASE SCANS) * (ABNORMAL) Manual Differential (04/05/2023 12:30 PM EMERGENCY RESPONSE COORDINATOR) Pathologist [facility] % Neutrophils (External) 51.5 42.0 - 72.0 [...] BLOOD SPECIMEN / Unknown 04/05/2023 12:30 PM EMERGENCY RESPONSE COORDINATOR Narrative BREEZE PFT - 04/07/2023 6:34 AM EMERGENCY RESPONSE COORDINATOR Verified by Yamil Santo on 04/07/2023. Freddy Dumont MD LAB - BLOOD ORD ERABLES AMNAE PFT NON-INTERFACED (ONBASE SCANS) * Hepatic panel (04/05/2023 12:30 PM EMERGENCY RESPONSE COORDINATOR) Protein Total (External) 6.3 6.0 - 8.3 [...] BLOOD SPECIMEN / Unknown 04/05/2023 12:30 PM EMERGENCY RESPONSE COORDINATOR Narrative AMNAE PFT - 04/07/2023 6:33 AM EMERGENCY RESPONSE COORDINATOR Verified by Yamil Santo on 04/07/2023. Freddy Dumont MD LAB - BLOOD ORD ERABLES SAMANTHA PFT NON-INTERFACED (ONBASE SCANS) * (ABNORMAL) CBC with platelets (04/05/2023 12:30 PM EMERGENCY RESPONSE COORDINATOR) WBC Count (External) 3.15(L) 4.50 - 11.00 [...] BLOOD SPECIMEN / Unknown 04/05/2023 12:30 PM EMERGENCY RESPONSE COORDINATOR Narrative SAMANTHA PFT - 04/07/2023 6:33 AM EMERGENCY RESPONSE COORDINATOR Verified by Yamil Santo on 04/07/2023. Freddy Dumont MD LAB - BLOOD ORD ERABLES SAMANTHA PFT NON-INTERFACED (ONBASE SCANS) * (ABNORMAL) Basic metabolic panel (04/05/2023 12:30 PM EMERGENCY RESPONSE COORDINATOR) Sodium (External) 139 135 - 149 mmol/L [...] BLOOD SPECIMEN / Unknown 04/05/2023 12:30 PM EMERGENCY RESPONSE COORDINATOR Narrative SAMANTHA PFT - 04/07/2023 6:29 AM EMERGENCY RESPONSE COORDINATOR Verified by Yamil Santo on 04/07/2023. Freddy [...] documented as of this encounter Care Teams Hot Plate Press Operator Relationship Specialty Start Date End Date Rubén Boyle MD PCP - General Family Practice 03/08/16 Pamela Blanco, PROTOTYPE MACHINE OPERATOR [facility] [address] [place], [place] 7675[address] Referring Physician 07/13/16 Pedro Segura MD [facility] [address] [place], [place] 48[address]37 Nephrology 10/03/16 Freddy Craft MD 516 [facility] 2A [place], [place] [address] Assigned Gastroenterology Provider 02/08/20 Abdifatah Van MD [address] [place] [address] [address] [place] [address] Assigned Nephrology Provider 07/13/20 11/07/23 Nicole Carranza NP 420 [facility] 508 [place] [address] Assigned Heart and Vascular Provider 01/09/22 Andressa Ruiz PA-C 420 [facility] 803 [place] [address] Physician Metal Finish Inspector Endocrinology, Diabetes, and Metabolism 03/01/22 Rubén Gunter [facility] [address] [place] [address] Assigned MTM Pharmacist 02/27/22 Andressa Ruiz PA-C 420 [facility] 803 [place] [address] Assigned Endocrinology Provider 03/13/22 09/07/23 Suzan Harry MD [address] [place] [address] Nephrology 06/30/23 Yasmeen Powers MD 500 [place] [address] Nephrology 10/24/23 Yasmeen Powers MD 500 [place] [address] Assigned Nephrology Provider 11/08/23 documented as of this encounter
--- OUTSIDE RECORDS SUMMARY | 2024-01-17 17:25 | XMS_ITS | Encounter Summary ---
Author Organization [place] Address [address] [place] [address] Care Team Providers Care Granite Installer Name Role Phone Rubén Boyle MD Primary Care Provider [phone] Pamela Blanco MILITARY EXCHANGE WIRELESS MANAGER Unavailable [phone] Pedro Segura MD Unavailable Freddy Craft MD Unavailable Abdifatah Van MD Unavailable Nicole Carranza MILITARY EXCHANGE WIRELESS MANAGER Unavailable [phone] Andressa Ruiz-C Unavailable Ashlyn Storm RN Unavailable Rubén Gunter [facility] Unavailable Andressa Ruiz-C Unavailable Suzan Harry MD Unavailable [phone] Yasmeen Powers MD Unavailable [phone] Yasmeen Powers MD Unavailable [phone] Encounter Details Date Type Department Care Team (Late st Contact Info) Description 08/31/2022 [facility] [address] [address] [facility] Social History Tobacco Use Types Packs/Day [...] documented as of this encounter Care Teams Granite Installer Relationship Specialty Start Date End Date Rubén Boyle MD PCP - General Family Practice 03/08/16 Pamela Blanco NP [facility] [address] [place] [address] Referring Physician 07/13/16 Pedro Segura MD [facility] [address] [place] [address] Nephrology 10/03/16 Freddy Craft MD [address] 008[address] Assigned Gastroenterology Provider 02/08/20 Abdifatah Van MD [address] [place] [address] [address] [place] [address] Assigned Nephrology Provider 07/13/20 11/07/23 Nicole Carranza NP 420 [facility] 508 [place] [address] Assigned Heart and Vascular Provider 01/09/22 Andressa Ruiz PA-C 420 [facility] 803 [place] [address] Physician Applications Intern Endocrinology, Diabetes, and Metabolism 03/01/22 Ashlyn Storm RN [facility] 711 [place] [address] Registered Nurse 03/03/22 09/15/22 Rubén Gunter [facility] [address] [place] [address] Assigned MTM Pharmacist 02/27/22 Andressa Ruiz PA-C 420 [facility] 803 [place] [address] Assigned Endocrinology Provider 03/13/22 09/07/23 Suzan Harry MD 420 [place] [address] Nephrology 06/30/23 Yasmeen Powers MD 500 [place], [place] 0[address]345 Nephrology 10/24/23 Yasmeen Powers MD 500 [place] [address] Assigned Nephrology Provider 11/08/23 documented as of this encounter
--- OUTSIDE RECORDS SUMMARY | 2024-01-17 17:25 | XMS_ITS | Encounter Summary ---
Author Organization [place] Address [address] [place] [address] Care Team Providers Care Electric Motor Control Assembler Name Role Phone Rubén Boyle MD Primary Care Provider Pamela Blanco MANAGER SHIFT Unavailable Pedro Segura MD Unavailable Freddy Craft MD Unavailable Abdifatah Van MD Unavailable Nicole Carranza MANAGER SHIFT Unavailable Andressa RuizC Unavailable Rubén Gunter [facility] Unavailable Andressa Ruiz-C Unavailable Suzan Harry MD Unavailable [phone] Yasmeen Powers MD Unavailable [phone] Yasmeen Powers MD Unavailable [phone] Encounter Details Date Type Department Care Team (Late st Contact Info) Description 06/28/2023 External Order Results [facility] [address] [place] [address] Outside, Provider Social History Tobacco Use Types [...] documented as of this encounter Care Teams Electric Motor Control Assembler Relationship Specialty Start Date End Date Rubén Boyle MD PCP - General Family Practice 03/08/16 Pamela Blanco NP [facility] [address] [place], [place] [address] Referring Physician 07/13/16 Pedro Segura MD [facility] [address] [place], [place] [address] Nephrology 10/03/16 Freddy Craft MD 516 [facility] 2A [place] [address] Assigned Gastroenterology Provider 02/08/20 Abdifatah Van MD [address] [facility] [address] [place] [address] Assigned Nephrology Provider 07/13/20 11/07/23 Nicole Carranza NP 420 [facility] [address] [place] [address] Assigned Heart and Vascular Provider 01/09/22 Andressa Ruiz PA-C 420 [facility] 803 [place] [address] Physician Inventory Analyst Endocrinology, Diabetes, and Metabolism 03/01/22 Rubén Gunter [facility] 909 [place] [address] Assigned MTM Pharmacist 02/27/22 Andressa Ruiz PA-C 420 [facility] 803 [place] [address] Assigned Endocrinology Provider 03/13/22 09/07/23 Suzan Harry MD 420 [place] [address] Nephrology 06/30/23 Yasmeen Powers MD 500 [place] [address] Nephrology 10/24/23 Yasmeen Powers MD 500 [place] [address] Assigned Nephrology Provider 11/08/23 documented as of this encounter
--- OUTSIDE RECORDS SUMMARY | 2024-01-17 17:25 | XMS_ITS | Encounter Summary ---
Author Organization [place] Address [address] [place] [address] Care Team Providers Care Program Clinician Name Role Phone Rubén Boyle MD Primary Care Provider Pamela Blanco RESOURCE MANAGER FORESTER Unavailable Pedro Segura MD Unavailable [phone] Freddy Craft MD Unavailable [phone] Abdifatah Van MD Unavailable Nicole Carranza RESOURCE MANAGER FORESTER Unavailable [phone] Andressa Ruiz PA-C Unavailable Suzan Harry MD Unavailable [phone] Yamseen Powers MD Unavailable [phone] Reason for Visit * Reason Onset Date Comments update 09/16/2023 Encounter Details Date Type Department Care Team (Late st Contact Info) Description 09/16/2023 Telephone [facility] [address] [place] [address] Chela Meng, RN update Social [...] AM CDT Patient Call: General Route to FAN BLADE ALIGNER Reason for call: Ileana Pharmacist from [facility] calling regarding patient's Tacrolimus level, she stated [...] documented as of this encounter Care Teams Program Clinician Relationship Specialty Start Date End Date Rubén Boyle MD PCP - General Family Practice 03/08/16 Pamela Blanco NP [facility] [address] [place] [address] Referring Physician 07/13/16 Pedro Segura MD [facility] [address] [place], [place] [address] Nephrology 10/03/16 Freddy Craft MD [address] [place] [address] Assigned Gastroenterology Provider 02/08/20 Abdifatah Van MD 717 [facility] [address] [place] [address] Assigned Nephrology Provider 07/13/20 11/07/23 Nicole Carranza NP 420 [facility] 508 [place] [address] Assigned Heart and Vascular Provider 01/09/22 Andressa Ruiz PA-C 420 [facility] 803 [place] [address] Physician Parking Line Painter Endocrinology, Diabetes, and Metabolism 03/01/22 Suzan Harry MD 420 [place], [place] [address] Nephrology 06/30/23 Yasmeen Powers MD 500 [place] [address] Nephrology 10/24/23 documented as of this encounter
--- OUTSIDE RECORDS SUMMARY | 2024-01-17 17:25 | XMS_ITS | Encounter Summary ---
Author Organization [place] Address [address] [place] [address] Care Team Providers Care Supervisor Microfilm Duplicating Unit Name Role Phone Rubén Boyle MD Primary Care Provider [phone] Pamela Blanco LIVE IN HOUSEKEEPER NANNY Unavailable Pedro Segura MD Unavailable Freddy Craft MD Unavailable [phone] Abdifatah Van MD Unavailable Nicole Carranza LIVE IN HOUSEKEEPER NANNY Unavailable Andressa Ruiz-C Unavailable Rubén Gunter [facility] Unavailable Andressa Ruiz-C Unavailable [phone] Suzan Harry MD Unavailable [phone] Yasmeen Powers MD Unavailable Yasmeen Powers MD Unavailable Encounter Details Date Type Department Care Team (Late st Contact Info) Description 03/30/2023 MyC Medical Advice [facility] [address] [place] [address] Calli Hall, RN Social History [...] as of this encounter Care Teams Supervisor Microfilm Duplicating Unit Relationship Specialty Start Date End Date Rubén Boyle MD PCP - General Family Practice 03/08/16 Pamela Blanco NP [facility] [address] [place], [place] [address]667 Referring Physician 07/13/16 Pedro Segura MD [facility] [address] [place], [place] [address]707 Nephrology 10/03/16 Freddy Craft MD 516 [facility] [address] [place], [place] 9[address]505 Assigned Gastroenterology Provider 02/08/20 Abdifatah Van MD 717 [facility] [address] [place], [place] 9[address]324 Assigned Nephrology Provider 07/13/20 11/07/23 Nicole Carranza NP 420 [facility] 508 [place] [address] Assigned Heart and Vascular Provider 01/09/22 Andressa Ruiz PA-C 420 [facility] 803 [place] [address] Physician Computer Help Desk Representative Endocrinology, Diabetes, and Metabolism 03/01/22 Rubén Gunter [facility] [address] [place] [address] Assigned MTM Pharmacist 02/27/22 Andressa Ruiz PA-C 420 [facility] 803 [place] [address] Assigned Endocrinology Provider 03/13/22 09/07/23 Suzan Harry MD 420 [place] [address] Nephrology 06/30/23 Yasmeen Powers MD 500 [place] [address] Nephrology 10/24/23 Yasmeen Powers MD 500 [place] [address] Assigned Nephrology Provider 11/08/23 documented as of this encounter
--- OUTSIDE RECORDS SUMMARY | 2024-01-17 17:25 | XMS_ITS | Encounter Summary ---
Author Organization [place] Address [address] [place] [address] Care Team Providers Care Flagger Name Role Phone Rubén Boyle MD Primary Care Provider Pamela Blanco CERAMIC ARTIST Unavailable [phone] Pedro Segura MD Unavailable Freddy Craft MD Unavailable Abdifatah Van MD Unavailable Nicole Carranza CERAMIC ARTIST Unavailable Andressa Ruiz-C Unavailable Suzan Harry MD Unavailable [phone] Yasmeen Powers MD Unavailable Yasmeen Powers MD Unavailable Encounter Details Date Type Department Care Team (Late st Contact Info) Description 09/29/2023 MyC Medical Advice [facility] Clinic 9 [place] [address] Lashanda Hsieh, [facility] Social History Tobacco Use Types Packs/Day [...] documented as of this encounter Care Teams Flagger Relationship Specialty Start Date End Date Rubén Boyle MD PCP - General Family Practice 03/08/16 Pamela Blanco NP [facility] [address] [place], [place] 962547 Referring Physician 07/13/16 Pedro Segura MD [facility] [address] [place], [place] 457137 Nephrology 10/03/16 Freddy Craft MD 516 [facility] [address] [place] [address] Assigned Gastroenterology Provider 02/08/20 Abdifatah Van MD 717 [facility] [address] [place] [address] Assigned Nephrology Provider 07/13/20 11/07/23 Nicole Carranza NP 420 [facility] 508 [place] [address] Assigned Heart and Vascular Provider 01/09/22 Andressa Ruiz PA-C 420 [facility] 803 [place] [address] Physician Drama Teacher Endocrinology, Diabetes, and Metabolism 03/01/22 Suzan Harry MD 420 [place] [address] Nephrology 06/30/23 Yasmeen Powers MD 500 [place] [address] Nephrology 10/24/23 Yasmeen Powers MD 500 [place] [address] Assigned Nephrology Provider 11/08/23 documented as of this encounter
--- OUTSIDE RECORDS SUMMARY | 2024-01-17 17:25 | XMS_ITS | Encounter Summary ---
Author Organization [place] Address [address] [place] [address] Care Team Providers Care Book Or Script Editor Name Role Phone Rubén Boyle MD Primary Care Provider Pamela Blanco LAB SUPPORT TECHNICIAN Unavailable Pedro Segura MD Unavailable [phone] Freddy Craft MD Unavailable Abdifatah Van MD Unavailable Nicole Carranza LAB SUPPORT TECHNICIAN Unavailable Andressa RuizC Unavailable Rubén Gunter [facility] Unavailable Andressa Ruiz-C Unavailable [phone] Suzan Harry MD Unavailable [phone] Yasmeen Powers MD Unavailable Yasmeen Powers MD Unavailable [phone] Encounter Details Date Type Department Care Team (Late st Contact Info) Description 04/20/2023 External Order Results [facility] [address] [place] [address] Outside, Provider Liver replaced by transplant (H) [...] BASIC METABOLIC PANEL Routine 04/20/2023 10:05 AM MACHINE REPAIRER MAINTENANCE Liver replaced by transplant (H) documented in this encounter Results * (ABNORMAL) Basic metabolic panel (04/20/2023 10:05 AM MACHINE REPAIRER MAINTENANCE) Sodium (External) 140 135 - 149 mmol/L [...] SPECIMEN / Unknown 04/20/2023 10:05 AM MACHINE REPAIRER MAINTENANCE Narrative AMNAE PFT - 04/26/2023 7:54 AM MACHINE REPAIRER MAINTENANCE Verified by Yamil Santo on 04/26/2023. Freddy [...] documented as of this encounter Care Teams Book Or Script Editor Relationship Specialty Start Date End Date Rubén Boyle MD PCP - General Family Practice 03/08/16 Pamela Blanco NP [facility] [address] [place], [place] 912197 Referring Physician 07/13/16 Pedro Segura MD [facility] [address] [place], [place] 487687 Nephrology 10/03/16 Freddy Craft MD [facility] [place], [place] [address]25 Assigned Gastroenterology Provider 02/08/20 Abdifatah Van MD [address] [facility] [address] [place] [address] Assigned Nephrology Provider 07/13/20 11/07/23 Nicole Carranza NP 420 [facility] 508 [place], [place] 456185 Assigned Heart and Vascular Provider 01/09/22 Andressa Ruiz PA-C 420 [facility] 803 [place] [address] Physician Rubber Printing Machine Operator Endocrinology, Diabetes, and Metabolism 03/01/22 Rubén Gunter [facility] 909 [place] [address] Assigned MTM Pharmacist 02/27/22 Andressa Ruiz PA-C 420 [facility] 803 [place] [address] Assigned Endocrinology Provider 03/13/22 09/07/23 Suzan Harry MD 420 [place] [address] Nephrology 06/30/23 Yasmeen Powers MD 500 [place] [address] Nephrology 10/24/23 Yasmeen Powers MD 500 [place] [address] Assigned Nephrology Provider 11/08/23 documented as of this encounter
--- OUTSIDE RECORDS SUMMARY | 2024-01-17 17:25 | XMS_ITS | Encounter Summary ---
Author Organization [place] Address [address] [place] [address] Care Team Providers Care Wood Handler Name Role Phone Rubén Boyle MD Primary Care Provider [phone] Pamela Blanco PAYROLL AND BENEFITS MANAGER Unavailable Pedro Segura MD Unavailable Freddy Craft MD Unavailable Abdifatah Van MD Unavailable Nicole Carranza PAYROLL AND BENEFITS MANAGER Unavailable Andressa Ruiz-C Unavailable Rubén Gunter [facility] Unavailable Andressa Ruiz-C Unavailable Suzan Harry MD Unavailable [phone] Yasmeen Powers MD Unavailable Yasmeen Powers MD Unavailable [phone] Encounter Details Date Type Department Care Team (Late st Contact Info) Description 08/22/2023 MyC Medical Advice [facility] 909 [place] [address] Calli Hall, RN Social History [...] as of this encounter Care Teams Wood Handler Relationship Specialty Start Date End Date Rubén Boyle MD PCP - General Family Practice 03/08/[address] [facility] [address] [place], [place] [address]2007 Referring Physician 07/13/[address] [facility] [address] [place], [place] 310867 Nephrology 10/03/16 Freddy Craft MD 516 [facility] [address] [place], [place] [address] Assigned Gastroenterology Provider 02/08/20 Abdifatah Van MD 717 [facility] [address] [place], [place] 8[address]174 Assigned Nephrology Provider 07/13/20 11/07/23 Nicole Carranza NP 420 [facility] 508 [place] [address] Assigned Heart and Vascular Provider 01/09/22 Andressa Ruiz PA-C 420 [facility] 803 [place] [address] Physician Casting Sorter Endocrinology, Diabetes, and Metabolism 03/01/22 Rubén Gunter [facility] [address] [place] [address] Assigned MTM Pharmacist 02/27/22 Andressa Ruiz PA-C 420 [facility] 803 [place] [address] Assigned Endocrinology Provider 03/13/22 09/07/23 Suzan Harry MD 420 [place] [address] Nephrology 06/30/23 Yasmeen Powers MD 500 [place] [address] Nephrology 10/24/23 Yasmeen Powers MD 500 [place] [address] Assigned Nephrology Provider 11/08/23 documented as of this encounter
--- OUTSIDE RECORDS SUMMARY | 2024-01-17 17:25 | XMS_ITS | Encounter Summary ---
Author Organization [place] Address [address] [place] [address] Care Team Providers Care Electromechanical Assembly Technician Name Role Phone Rubén Boyle MD Primary Care Provider Pamela Blanco DIRECTOR OF TESTING Unavailable Pedro Segura MD Unavailable [phone] Freddy Craft MD Unavailable Abdifatah Van MD Unavailable Nicole Carranza DIRECTOR OF TESTING Unavailable Andressa Ruiz-C Unavailable Rubén Gunter [facility] Unavailable Andressa Ruiz-C Unavailable Suzan Harry MD Unavailable [phone] Yasmeen Powers MD Unavailable Yasmeen Powers MD Unavailable [phone] Encounter Details Date Type Department Care Team (Late st Contact Info) Description 01/04/2023 MyC Medical Advice [facility] 9[address] [place] [address] Calli Hall, RN Social History [...] documented as of this encounter Care Teams Electromechanical Assembly Technician Relationship Specialty Start Date End Date Rubén Boyle MD PCP - General Family Practice 03/08/16 Pamela Blanco NP [facility] [address] [place], [place] 186947 Referring Physician 07/13/16 Pedro Segura MD [facility] [address] [place], [place] 253277 Nephrology 10/03/16 Freddy Craft MD [address] [facility] [address] [place], [place] [address]125 Assigned Gastroenterology Provider 02/08/20 Abdifatah Van MD 717 [facility] [address] [place], [place] 388034 Assigned Nephrology Provider 07/13/20 11/07/23 Nicole Carranza NP 420 [facility] 508 [place] [address] Assigned Heart and Vascular Provider 01/09/22 Andressa Ruiz PA-C 420 [facility] 803 [place] [address] Physician Cage Clerk Endocrinology, Diabetes, and Metabolism 03/01/22 Rubén Gunter [facility] [address] [place] [address] Assigned MTM Pharmacist 02/27/22 Andressa Ruiz PA-C 420 [facility] 803 [place] [address] Assigned Endocrinology Provider 03/13/22 09/07/23 Suzan Harry MD 420 [place] [address] Nephrology 06/30/23 Yasmeen Powers MD 500 [place] [address] Nephrology 10/24/23 Yasmeen Powers MD 500 [place] [address] Assigned Nephrology Provider 11/08/23 documented as of this encounter
--- OUTSIDE RECORDS SUMMARY | 2024-01-17 17:25 | XMS_ITS | Encounter Summary ---
Author Organization [place] Address [address] [place] [address] Care Team Providers Care Program Associate Name Role Phone Rubén Boyle MD Primary Care Provider Pamela Blanco IMPORT/EXPORT FREIGHT FORWARDER Unavailable Pedro Segura MD Unavailable [phone] Freddy Craft MD Unavailable [phone] Abdifatah Van MD Unavailable Nicole Carranza IMPORT/EXPORT FREIGHT FORWARDER Unavailable [phone] Andressa Ruiz-C Unavailable Ashlyn Storm RN Unavailable Rubén Gunter [facility] Unavailable Andressa Ruiz-C Unavailable [phone] Suzan Harry MD Unavailable [phone] Yasmeen Powers MD Unavailable [phone] Yasmeen Powers MD Unavailable [phone] Encounter Details Date Type Department Care Team (Late st Contact Info) Description 07/05/2022 External Order Results [facility] [address] [place] [address] Outside, Provider Social History Tobacco Use Types [...] Mass Spectrometry (07/05/2022 1:38 PM CDT) Pathologist [facility] Tacrolimus(FK-5 06) (External) 7.8 5.0 - 15.0 [...] - BLOOD ORD ERABLES Performing Organization Address [facility]/ZIP Co de Phone Number BRECARISA PFT NON-INTERFACED [...] as of this encounter Care Teams Program Associate Relationship Specialty Start Date End Date Rubén Boyle MD PCP - General Family Practice 03/08/16 Pamela Blanco IMPORT/EXPORT FREIGHT FORWARDER [facility] [address] [place], [place] 748867 Referring Physician 07/13/[address] [facility] [address] [place], [place] 6[address] Nephrology 10/03/16 Freddy Craft MD 516 [facility] 2[facility] [place] [address] Assigned Gastroenterology Provider 02/08/20 Abdifatah Van MD 717 [facility] [address] [place] [address] Assigned Nephrology Provider 07/13/20 11/07/23 Nicole Carranza NP 420 [facility] 508 [place] [address] Assigned Heart and Vascular Provider 01/09/22 Andressa Ruiz PA-C 420 [facility] 803 [place] [address] Physician Vice President Endocrinology, Diabetes, and Metabolism 03/01/22 Ashlyn Storm RN [facility] 711 [place] [address] Registered Nurse 03/03/22 09/15/22 Rubén Gunter [facility] 909 [place], [place] 91536455 Assigned MTM Pharmacist 02/27/22 Andressa Ruiz PA-C 420 [facility] 803 [place], [place] 178215 Assigned Endocrinology Provider 03/13/22 09/07/23 Suzan Harry MD 420 [place], [place] [address] Nephrology 06/30/23 Yasmeen Powers MD 500 [place], [place] [address] Nephrology 10/24/23 Yasmeen Powers MD 500 [place], [place] [address] Assigned Nephrology Provider 11/08/23 documented as of this encounter
--- OUTSIDE RECORDS SUMMARY | 2024-01-17 17:25 | XMS_ITS | Encounter Summary ---
Author Organization [place] Address [address] [place] [address] Care Team Providers Care Liver Trimmer Name Role Phone Rubén Boyle MD Primary Care Provider Pamela Blanco DIRECTOR OF MANUFACTURING Unavailable Pedro Segura MD Unavailable [phone] Freddy Craft MD Unavailable [phone] Abdifatah Van MD Unavailable Nicole Carranza DIRECTOR OF MANUFACTURING Unavailable Andressa Ruiz-C Unavailable Rubén Gunter [facility] Unavailable Andressa Ruiz-C Unavailable Suzan Harry MD Unavailable [phone] Yasmeen Powers MD Unavailable [phone] Yasmeen Powers MD Unavailable [phone] Encounter Details Date Type Department Care Team (Late st Contact Info) Description 09/27/2022 MyC Medical Advice [facility] 909 [place] [address] Lashanda Hsieh, [facility] Social History Tobacco Use Types Packs/Day Years [...] documented as of this encounter Care Teams Liver Trimmer Relationship Specialty Start Date End Date Rubén Boyle MD PCP - General Family Practice 03/08/16 Pamela Blanco DIRECTOR OF MANUFACTURING [facility] [address] [place], [place] [address]607 Referring Physician 07/13/16 Pedro Segura MD [facility] [address] [place], [place] 6[address]757 Nephrology 10/03/16 Freddy Craft MD 516 [facility] [place], [place] [address] Assigned Gastroenterology Provider 02/08/20 Abdifatah Van MD 717 [facility] [address] [place] [address] Assigned Nephrology Provider 07/13/20 11/07/23 Nicole Carranza NP 420 [facility] 508 [place] [address] Assigned Heart and Vascular Provider 01/09/22 Andressa Ruiz PA-C 420 [facility] 803 [place] [address] Physician Catalyst Unit Operator Endocrinology, Diabetes, and Metabolism 03/01/22 [facility] [address] [place] [address] Assigned MTM Pharmacist 02/27/22 Andressa Ruiz PA-C 420 [facility] 803 [place] [address] Assigned Endocrinology Provider 03/13/22 09/07/23 Suzan Harry MD 420 [place] [address] Nephrology 06/30/23 Yasmeen Powers MD 500 [place] [address] Nephrology 10/24/23 Yasmeen Powers MD 500 [place] [address] Assigned Nephrology Provider 11/08/23 documented as of this encounter
--- OUTSIDE RECORDS SUMMARY | 2024-01-17 17:25 | XMS_ITS | Encounter Summary ---
Author Organization [place] Address [address] [place] [address] Care Team Providers Care Lighting Fixture Installer Name Role Phone Rubén Boyle MD Primary Care Provider Pamela Blanco MARKET DEVELOPMENT MANAGER Unavailable Pedro Segura MD Unavailable [phone] Freddy Craft MD Unavailable Abdifatah Van MD Unavailable Nicole Carranza MARKET DEVELOPMENT MANAGER Unavailable Andressa RuizC Unavailable [phone] Rubén Gunter [facility] Unavailable Andressa Ruiz-C Unavailable [phone] Suzan Harry MD Unavailable [phone] Yasmeen Powers MD Unavailable Yasmeen Powers MD Unavailable [phone] Encounter Details Date Type Department Care Team (Late st Contact Info) Description 02/22/2023 MyC Medical Advice [facility] G[facility]ology Clinic [address] 4[address] [place] [address] Jessica Dillon Social History Tobacco [...] documented as of this encounter Care Teams Lighting Fixture Installer Relationship Specialty Start Date End Date Rubén Boyle MD PCP - General Family Practice 03/08/16 Pamela Blanco NP [facility] [address] [place] [address] Referring Physician 07/13/16 Pedro Segura MD [facility] [address] [place], [place] 330907 Nephrology 10/03/16 Freddy Craft MD 516 [facility] [address] [place], [place] [address] Assigned Gastroenterology Provider 02/08/20 Abdifatah Van MD [address] [facility] [address] [place], [place] 805064 Assigned Nephrology Provider 07/13/20 11/07/23 Nicole Carranza NP 420 [facility] 508 [place] [address] Assigned Heart and Vascular Provider 01/09/22 Andressa Ruiz PA-C 420 [facility] 803 [place] [address] Physician Media Planner / Buyer Endocrinology, Diabetes, and Metabolism 03/01/22 Rubén Gunter [facility] [address] [place] [address] 671515 Assigned MTM Pharmacist 02/27/22 Andressa Ruiz PA-C 420 [facility] 803 [place], [place] [address]005 Assigned Endocrinology Provider 03/13/22 09/07/23 Suzan Harry MD 420 [place] [address] Nephrology 06/30/23 Yasmeen Powers MD 500 [place] [address] Nephrology 10/24/23 Yasmeen Powers MD 500 [place] [address] Assigned Nephrology Provider 11/08/23 documented as of this encounter
--- OUTSIDE RECORDS SUMMARY | 2024-01-17 17:25 | XMS_ITS | Encounter Summary ---
Author Organization [place] Address [address] [place] [address] Care Team Providers Care Marine Designer Name Role Phone Rubén Boyle MD Primary Care Provider [phone] Pamela Blanco PERFORMANCE MANAGER Unavailable Pedro Segura MD Unavailable Freddy Craft MD Unavailable Abidfatah Van MD Unavailable Nicole Carranza PERFORMANCE MANAGER Unavailable Andressa RuizC Unavailable [phone] Rubén Gunter [facility] Unavailable Andressa Ruiz-C Unavailable Suzan Harry MD Unavailable [phone] Yasmeen Powers MD Unavailable Yasmeen Powers MD Unavailable [phone] Encounter Details Date Type Department Care Team (Late st Contact Info) Description 04/20/2023 External Order Results [facility] [address] [place] [address] Outside, Provider Social History Tobacco Use Types [...] TANDEM MASS SPECTROMETRY Routine 04/20/2023 10:[address] ENGINEER documented in this encounter Results * Tacrolimus by [employer]andem Mass Spectrometry (04/20/2023 10:[address] ENGINEER) Tacrolimus(FK-5 06) (External) 9.0 5.0 - 15.0 ng/mL NON-INTERFACED (ONBASE SCANS) Blood BLOOD SPECIMEN / Unknown 04/20/2023 10:[address] ENGINEER Narrative SAMANTHA PFT - 04/25/2023 9:[address] ENGINEER Verified by Pedrito Stallworth on 04/25/2023. 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 06/21/2016 06/21/2016 documented as of this encounter Care Teams Marine Designer Relationship Specialty Start Date End Date Rubén Boyle MD PCP - General Family Practice 03/08/16 Pamela Blanco NP [facility] [address] [place] [address] Referring Physician 07/13/16 Pedro Segura MD [facility] [address] [place] [address] Nephrology 10/03/16 Freddy Craft MD [facility] [place], [place] [address] Assigned Gastroenterology Provider 02/08/20 Abdifatah Van MD 717 [facility] [address] [place] [address] Assigned Nephrology Provider 07/13/20 11/07/23 Nicole Carranza NP 420 [facility] 508 [place], [place] [address] Assigned Heart and Vascular Provider 01/09/22 Andressa Ruiz PA-C 420 [facility] 803 [place], [place] [address] Physician Rocket Test Fire Worker Endocrinology, Diabetes, and Metabolism 03/01/22 Rubén Gunter [facility] 909 [place], [place] 662624[address] Assigned MTM Pharmacist 02/27/22 Andressa Ruiz PA-C 420 [facility] 803 [place], [place] [address] Assigned Endocrinology Provider 03/13/22 09/07/23 Suzan Harry MD 420 [place], [place] [address] Nephrology 06/30/23 Yasmeen Powers MD 500 [place], [place] 9[address] Nephrology 10/24/23 Yasmeen Powers MD 500 [place], [place] 395515 Assigned Nephrology Provider 11/08/23 documented as of this encounter
--- OUTSIDE RECORDS SUMMARY | 2024-01-17 17:25 | XMS_ITS | Encounter Summary ---
Author Organization [facility] Address [address] [place] [address] Care Team Providers Care Bulk System Operator Name Role Phone Rubén Boyle MD Primary Care Provider Pamela Blanco MALTED MILK MASHER Unavailable [phone] Pedro Segura MD Unavailable Freddy Craft MD Unavailable [phone] Abdifatah Van MD Unavailable Nicole Carranza MALTED MILK MASHER Unavailable Andressa RuizC Unavailable Rubén Gunter [facility] Unavailable Andressa Ruiz-C Unavailable Suzan Harry MD Unavailable [phone] Yasmeen Powers MD Unavailable [phone] Yasmeen Powers MD Unavailable [phone] Encounter Details Date Type Department Care Team (Late st Contact Info) Description 04/07/2023 External Order Results [facility] [address] [place] [address] Outside, Provider Liver replaced by transplant (H) [...] BASIC METABOLIC PANEL Routine 04/07/2023 9:30 AM COST CLERK Liver replaced by transplant (H) documented in this encounter Results * (ABNORMAL) Basic metabolic panel (04/07/2023 9:30 AM COST CLERK) Sodium (External) 137 135 - 149 mmol/L [...] BLOOD SPECIMEN / Unknown 04/07/2023 9:30 AM COST CLERK Narrative SAMANTHA PFT - 04/08/2023 9:30 AM COST CLERK Verified by Pedrito Stallworth on 04/08/2023. Freddy [...] documented as of this encounter Care Teams Bulk System Operator Relationship Specialty Start Date End Date Rubén Boyle MD PCP - General Family Practice 03/08/16 Pamela Blanco, MALTED MILK MASHER [facility] [address] [place], [place] [address] Referring Physician 07/13/16 Pedro Segura MD [facility] [address] [place], [place] [address] Nephrology 10/03/16 Freddy Craft MD [address] [facility] [address] [place], [place] [address] Assigned Gastroenterology Provider 02/08/20 Abdifatah Van MD [address] [facility] [address] [place], [place] [address] Assigned Nephrology Provider 07/13/20 11/07/23 Nicole Carranza NP 420 [facility] [address] [place], [place] [address] Assigned Heart and Vascular Provider 01/09/22 Andressa Ruiz PA-C 420 [facility] 803 [place] [address] Physician Entertainment Usher Endocrinology, Diabetes, and Metabolism 03/01/22 Rubén Gunter [facility] [address] [place] [address] Assigned MTM Pharmacist 02/27/22 Andressa Ruiz PA-C 420 [facility] 803 [place] [address] Assigned Endocrinology Provider 03/13/22 09/07/23 Suzan Harry MD 420 [place] [address] Nephrology 06/30/23 Yasmeen Powers MD 500 [place] [address] Nephrology 10/24/23 Yasmeen Powers MD [address] [place] [address] Assigned Nephrology Provider 11/08/23 documented as of this encounter
--- OUTSIDE RECORDS SUMMARY | 2024-01-17 17:25 | XMS_ITS | Encounter Summary ---
Author Organization [facility] Address [address] [place] [address] Care Team Providers Care Middle Card Tender Name Role Phone Rubén Boyle MD Primary Care Provider Pamela Blanco CHRISTIAN SCIENCE READER Unavailable Pedro Segura MD Unavailable Freddy Craft MD Unavailable [phone] Abdifatah Van MD Unavailable Nicole Carranza CHRISTIAN SCIENCE READER Unavailable Andressa Ruiz-C Unavailable Suzan Harry MD Unavailable [phone] Yasmeen Powers MD Unavailable [phone] Yasmeen Powers MD Unavailable Encounter Details Date Type Department Care Team (Late st Contact Info) Description 09/30/2023 External Order Results [facility] [address] [place] [address] Outside, Provider Liver replaced by transplant (H) [...] Mass Spectrometry (09/30/2023 9:40 AM CDT) Pathologist [facility] Tacrolimus(FK-5 06) (External) 3.0 ng/mL NON-INTERFACE D (ONBASE SCANS) Blood BLOOD SPECIMEN / Unknown 09/30/2023 9:40 AM CDT Narrative SAMANTHA PFT - 10/03/2023 12:33 PM CDT Verified by Rhiannon Cain on 10/03/2023. Freddy Dumont MD LAB - BLOOD ORD ERABLES SAMANTHA PFT NON-INTERFACED (ONBASE SCANS) * (ABNORMAL) Manual Differential (09/30/2023 9:40 AM CDT) Pathologist [facility] % Neutrophils (External) 54.1 42.0 - 72.0 [...] documented as of this encounter Care Teams Middle Card Tender Relationship Specialty Start Date End Date Rubén Boyle MD PCP - General Family Practice 03/08/16 Pamela Blanco CHRISTIAN SCIENCE READER [facility] [address] [place], [place] [address] Referring Physician 07/13/16 Pedro Segura MD [facility] [address] [place], [place] [address] Nephrology 10/03/16 Freddy Craft MD 516 [facility] [address] [place], [place] [address] Assigned Gastroenterology Provider 02/08/20 Abdifatah Van MD 7[address] [facility] [address] [place], [place] [address] Assigned Nephrology Provider 07/13/20 11/07/23 Nicole Carranza NP [address] [place] [address] [address] [place] [address] Assigned Heart and Vascular Provider 01/09/22 Andressa Ruiz PA-C 420 [facility] 803 [place] [address] Physician Emergency Management Program Specialist Endocrinology, Diabetes, and Metabolism 03/01/22 Suzan Harry MD [address] [place] [address] Nephrology 06/30/23 Yasmeen Powers MD 500 [place] [address] Nephrology 10/24/23 Yasmeen Powers MD [address] [place] [address] Assigned Nephrology Provider 11/08/23 documented as of this encounter
--- OUTSIDE RECORDS SUMMARY | 2024-01-17 17:25 | XMS_ITS | Encounter Summary ---
Author Organization [facility] Address [address] [place] [address] Care Team Providers Care Aperture Mask Etcher Name Role Phone Rubén Boyle MD Primary Care Provider Pamela Blanco HOME HEALTH SCHEDULER Unavailable Pedro Segura MD Unavailable Freddy Craft MD Unavailable [phone] Abdifatah Van MD Unavailable Nicole Carranza HOME HEALTH SCHEDULER Unavailable [phone] Andressa Ruiz-C Unavailable Ashlyn Storm RN Unavailable Rubén Gunter [facility] Unavailable Andressa Ruiz-C Unavailable [phone] Suzan Harry MD Unavailable [phone] Yasmeen Powers MD Unavailable [phone] Yasmeen Powers MD Unavailable [phone] Encounter Details Date Type Department Care Team (Late st Contact Info) Description 05/27/2022 External Order Results [facility] [address] [place] [address] Outside, Provider History of liver transplant (H) [...] PLATELETS & DIFFERENTIAL Routine 05/27/2022 10:30 AM BUILDING MAINTENANCE CUSTODIAN TACROLIMUS BY TANDEM MASS SPECTROMETRY Routine 05/27/2022 10:30 AM BUILDING MAINTENANCE CUSTODIAN History of liver transplant (H) MAGNESIUM Routine 05/27/2022 10:30 AM BUILDING MAINTENANCE CUSTODIAN HEPATIC FUNCTION PANEL Routine 05/27/2022 10:30 AM BUILDING MAINTENANCE CUSTODIAN BASIC METABOLIC PANEL Routine 05/27/2022 10:30 AM BUILDING MAINTENANCE CUSTODIAN documented in this encounter Results * Tacrolimus by Tandem Mass Spectrometry (05/27/2022 10:30 AM BUILDING MAINTENANCE CUSTODIAN) Pathologist [facility] Tacrolimus(FK-5 06) (External) 4.8 See scan ng/ml NON-INTERFACED (ONBASE SCANS) Blood 05/27/2022 10:3 0 AM BUILDING MAINTENANCE CUSTODIAN Narrative SAMANTHA PFT - 05/31/2022 4:42 PM BUILDING MAINTENANCE CUSTODIAN Verified by Melissa Otto on 05/31/2022. Freddy Dumont MD LAB - BLOOD ORD ERABLES ERICKCARISA PFT NON-INTERFACED (ONBASE SCANS) * (ABNORMAL) CBC with Platelets & Differential (05/27/2022 10:30 AM BUILDING MAINTENANCE CUSTODIAN) Pathologist [facility] WBC Count (External) 2.95(L) 4.50 - 11.00 [...] NAEEM SINGH PFT - 05/31/2022 7:10 AM BUILDING MAINTENANCE CUSTODIAN Verified by Pedrito Stallworth on 05/31/2022. Freddy Dumont MD LAB - BLOOD ORD ERABLES BREEZE PFT NON-INTERFACED (ONBASE SCANS) * Magnesium (05/27/2022 10:30 AM BUILDING MAINTENANCE CUSTODIAN) Magnesium (External) 1.6 1.5 - 2.6 mg/dL NON-INTERFACED (ONBASE SCANS) Blood BLOOD SPECIMEN / Unknown 05/27/2022 10:30 AM BUILDING MAINTENANCE CUSTODIAN Narrative BREEZE PFT - 05/31/2022 7:10 AM BUILDING MAINTENANCE CUSTODIAN Verified by Pedrito Stallworth on 05/31/2022. Freddy Dumont MD LAB - BLOOD ORD ERABLES BREEZE PFT NON-INTERFACED (ONBASE SCANS) * Hepatic function panel (05/27/2022 10:30 AM BUILDING MAINTENANCE CUSTODIAN) Protein Total (External) 6.7 6.0 - 8.3 [...] BLOOD SPECIMEN / Unknown 05/27/2022 10:30 AM BUILDING MAINTENANCE CUSTODIAN Narrative BREEZE PFT - 05/31/2022 7:10 AM BUILDING MAINTENANCE CUSTODIAN Verified by Pedrito Stallworth on 05/31/2022. Freddy Dumont MD LAB - BLOOD ORD ERABLES Performing Organization Address City/[facility]/ZIP Co de Phone Number SAMANTHA PFT NON-INTERFACED (ONBASE SCANS) * (ABNORMAL) Basic metabolic panel (05/27/2022 10:30 AM BUILDING MAINTENANCE CUSTODIAN) Sodium (External) 141 135 - 149 mmol/L [...] BLOOD SPECIMEN / Unknown 05/27/2022 10:30 AM BUILDING MAINTENANCE CUSTODIAN Narrative SAMANTHA PFT - 05/31/2022 7:10 AM BUILDING MAINTENANCE CUSTODIAN Verified by Pedrito Stallworth on 05/31/2022. 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, 07/10/16 rectal swab 06/21/2016 06/21/2016 documented as of this encounter Care Teams Aperture Mask Etcher Relationship Specialty Start Date End Date Rubén Boyle MD PCP - General Family Practice 03/08/16 Pamela Blanco HOME HEALTH SCHEDULER [facility] [address] [place], [place] [address] Referring Physician 07/13/16 Pedro Segura MD [facility] [address] [place], [place] [id number] Nephrology 10/03/16 Freddy Craft MD [address] [facility] [address] [place] [address] Assigned Gastroenterology Provider 02/08/20 Abdifatah Van MD [address] [facility] [address] [place] [address] Assigned Nephrology Provider 07/13/20 11/07/23 Nicole Carranza NP 420 [facility] [address] [place] [address] Assigned Heart and Vascular Provider 01/09/22 Andressa Ruiz PA-C 420 [facility] 803 [place] [address] Physician Proof Machine Operator Supervisor Endocrinology, Diabetes, and Metabolism 03/01/22 Ashlyn Storm RN [facility] 7[address] [place] [address] Registered Nurse 03/03/22 09/15/22 Rubén Gunter [facility] [address]09 [place], [place] [id number] Assigned MTM Pharmacist 02/27/22 Andressa Ruiz PA-C 420 [facility] 803 [place], [place] [address] Assigned Endocrinology Provider 03/13/22 09/07/23 Suzan Harry MD 420 [place], [place] [phone] Nephrology 06/30/23 Yasmeen Powers MD [address] [place], [place] [address] Nephrology 10/24/23 Yasmeen Powers MD [address] [place], [place] [address] Assigned Nephrology Provider 11/08/23 documented as of this encounter
--- OUTSIDE RECORDS SUMMARY | 2024-01-17 17:26 | XMS_ITS | Encounter Summary ---
Author Organization [facility] Address [address] [place] [address] Care Team Providers Care Lifts And Cranes Inspector Name Role Phone Rubén Boyle MD Primary Care Provider Pamela Blanco MAKE UP ARRANGER Unavailable Pedro Segura MD Unavailable Freddy Craft MD Unavailable Abdifatah Van MD Unavailable Nicole Carranza MAKE UP ARRANGER Unavailable [phone] Andressa Ruiz-C Unavailable [phone] Ashlyn Storm RN Unavailable Rubén Gunter [facility] Unavailable Andressa Ruiz-C Unavailable Suzan Harry MD Unavailable [phone] Yasmeen Powers MD Unavailable [phone] Yasmeen Powers MD Unavailable [phone] Encounter Details Date Type Department Care Team (Late st Contact Info) Description 10/26/2021 External Order Results [facility] [address] [place] [address] Outside, Provider Social History Tobacco Use Types [...] ES Performing Organization Address [facility] Co de Phone Number ERICKEZE PFT NON-INTERFACED (ONBASE SCANS) * (ABNORMAL) Troponin I (10/25/2021 6:55 AM CDT) Troponin I (External) 0.07(H) 0.01 - 0.04 ng/mL NON-INTERFACED (ONBASE SCANS) Blood 10/25/2021 6:55 AM CDT Narrative BREEZE PFT - 11/13/2021 9:26 AM CDT Verified by Pedrito Stallworth on 11/12/2021. [place] BourgeoisYony LAB - BLOOD ORDERABL ES Performing Organization Address [facility] Co de Phone Number AMNAE [...] ES Performing Organization Address [facility] Co de Phone Number SAMANTHA [...] ES Performing Organization Address [facility]/ZIP Co de Phone Number SAMANTHA PFT [...] ES Performing Organization Address [facility]/ZIP Co de Phone Number BREEZE PFT NON-INTERFACED (ONBASE SCANS) * (ABNORMAL) External Lab Results (10/24/2021 3:53 PM CDT) Scan Lab Results (External) see scan(A) NON-INTERFACE D (ONBASE SCANS) Comment:CDIFF, C Diff. Tox 10/24/2021 3:53 PM CDT Narrative BREEZE PFT - 11/13/2021 9:26 AM CDT Verified by Pedrito Stallworth on 11/13/2021. [place] Bhakta LABORATORY Performing Organization Address [facility] Co de Phone Number BREEZE PFT NON-INTERFACED (ONBASE SCANS) * (ABNORMAL) D dimer quantitative (10/24/2021 9:00 AM CDT) Pathologist [facility] D Dimer Quantitative (External) 0.90(H) 0.00 - 0.50 ug/mL NON-INTERFACE D (ONBASE SCANS) Blood 10/24/2021 9:00 AM CDT Narrative BREEZE PFT - 11/12/2021 3:44 PM CDT Verified by Brisa Jackson on 11/12/2021. Provider Outside LAB - BLOOD ORDERABL Performing Organization Address [facility] Co de Phone Number BREEZE [...] ES Performing Organization Address [facility] de Phone Number AMNAE PFT NON-INTERFACED (ONBASE SCANS) * (ABNORMAL) CRP inflammation (10/24/2021 8:21 AM CDT) CRP Inflammation (External) 4.7(H) 0.5 - 1.0 MG/DL NON-INTERFACE D (ONBASE SCANS) Blood 10/24/2021 8:21 AM CDT Narrative BREEZE PFT - 11/13/2021 9:26 AM CDT Verified by Pedrito Stallworth on 11/13/2021. [place] Yony LAB - BLOOD ORDERABL ES Performing Organization Address [facility] de Phone Number AMNAE PFT NON-INTERFACED (ONBASE SCANS) * (ABNORMAL) Troponin I (10/24/2021 8:21 AM CDT) Troponin I (External) 0.13(H) 0.01 - 0.04 NG/ML NON-INTERFACED (ONBASE SCANS) Blood 10/24/2021 8:21 AM CDT Narrative BREEZE PFT - 11/13/2021 9:26 AM CDT Verified by Pedrito Stallworth on 11/13/2021. [place] Bhakta LAB - BLOOD ORDERABL ES Performing Organization Address [facility]/ZIP Co de Phone Number BREEZE PFT NON-INTERFACED (ONBASE SCANS) * Magnesium (10/24/2021 8:21 AM CDT) Magnesium (External) 1.5 1.5 - 2.6 mg/dL NON-INTERFACED (ONBASE SCANS) Blood 10/24/2021 8:21 AM CDT Narrative ERICKEZE PFT - 11/13/2021 9:26 AM CDT Verified by Pedrito Stallworth on 11/12/2021. [place] Vargasraes LAB - BLOOD ORDERABL ES Performing Organization Address [facility] Co de Phone Number ERICKEZE [...] ES Performing Organization Address [facility] Co de Phone Number AMNAE [...] ES Performing Organization Address [facility] Co de Phone Number BREEZE PFT NON-INTERFACED (ONBASE SCANS) * Lipase (10/23/2021 6:30 AM CDT) Lipase Level Low Scale (External) 28 23 - 300 U/L NON-INTERFACED (ONBASE SCANS) Blood 10/23/2021 6:30 AM CDT Narrative BREEZE PFT - 11/13/2021 9:26 AM CDT Verified by Pedrito Stallworth on 11/12/2021. [place] Bhakta LAB - BLOOD ORDERABL ES Performing Organization Address [facility] de Phone Number BREEZE PFT NON-INTERFACED (ONBASE SCANS) * Lactic acid whole blood (10/23/2021 6:30 AM CDT) Lactic Acid (External) 0.6 0.5 - 1.9 mmol/L NON-INTERFACED (ONBASE SCANS) Blood 10/23/2021 6:30 AM CDT Narrative BREEZE PFT - 11/13/2021 9:26 AM CDT Verified by Pedrito Stallworth on 11/12/2021. [place] Bhakta LAB - BLOOD ORDERABL ES Performing Organization Address [facility] Co de Phone Number BREEZE PFT NON-INTERFACED (ONBASE SCANS) * (ABNORMAL) CRP inflammation (10/23/2021 6:30 AM CDT) CRP Inflammation (External) 2.0(H) 0.5 - 1.0 mg/dL NON-INTERFACE D (ONBASE SCANS) Blood 10/23/2021 6:30 AM CDT Narrative BREEZE PFT - 11/13/2021 9:26 AM CDT Verified by Pedrito Stallworth on 11/12/2021. [place] Bhakta LAB - BLOOD ORDERABL ES Performing Organization Address [facility] de Phone Number AMNAE PFT NON-INTERFACED (ONBASE SCANS) * (ABNORMAL) Lactate Dehydrogenase (10/23/2021 6:30 AM CDT) LD (External) 665(H) 313 - 618 U/L NON-INTERFACED (ONBASE SCANS) Blood 10/23/2021 6:30 AM CDT Narrative AMNAE PFT - 11/13/2021 9:26 AM CDT Verified by Pedrito Stallworth on 11/12/2021. [place] BourgeoisYony LAB - BLOOD ORDERABL Performing Organization Address [facility] de Phone Number ERICKEZE PFT NON-INTERFACED (ONBASE [...] ES Performing Organization Address [facility] Co de Phone Number BREEZE [...] ES Performing Organization Address [facility]/ZIP Co de Phone Number BREEZE PFT [...] Verified by Brisa Jackson on 11/12/2021. Provider [facility] LAB - BLOOD ORDERABL ES Performing Organization Address [facility] Co de Phone Number BREEZE PFT NON-INTERFACED (ONBASE SCANS) * (ABNORMAL) Troponin I (10/22/2021 8:30 PM CDT) Troponin I (External) 0.92(H) 0.01 - 0.04 ng/ml NON-INTERFACED (ONBASE SCANS) Blood 10/22/2021 8:30 PM CDT Narrative BREEZE PFT - 11/13/2021 9:26 AM CDT Verified by Pedrito Stallworth on 11/13/2021. [place] Yony LAB - BLOOD ORDERABL Performing Organization Address [facility] de Phone Number BREEZE PFT NON-INTERFACED (ONBASE SCANS) * Lactic acid whole blood (10/22/2021 5:08 PM CDT) Lactic Acid (External) 1.4 0.5 - 1.9 mmol/L NON-INTERFACED (ONBASE SCANS) Blood 10/22/2021 5:08 PM CDT Narrative BREEZE PFT - 11/13/2021 9:26 AM CDT Verified by Pedrito Stallworth on 11/13/2021. [place] Yony LAB - BLOOD ORDERABL ES Performing Organization Address [facility] de Phone Number BREEZE PFT NON-INTERFACED (ONBASE SCANS) * (ABNORMAL) Troponin I (10/22/2021 5:08 PM CDT) Troponin I (External) 0.99(H) 0.01 - 0.04 ng/ml NON-INTERFACED (ONBASE SCANS) Blood 10/22/2021 5:08 PM CDT Narrative BREEZE PFT - 11/13/2021 9:26 AM CDT Verified by Pedrito Stallworth on 11/13/2021. [place] Bhakta LAB - [facility]OD [facility] Performing Organization Address [facility] de Phone Number ERICKEZE PFT NON-INTERFACED (ONBASE SCANS) * (ABNORMAL) Glucose (10/22/2021 3:30 PM CDT) Glucose (External) 166(H) 60 - 115 MG/DL NON-INTERFACED (ONBASE SCANS) Blood 10/22/2021 3:30 PM CDT Narrative BREEZE PFT - 11/13/2021 9:26 AM CDT Verified by Pedrito Stallworth on 11/13/2021. [place] Bhakta LAB - [facility]LOOD [facility] Performing Organization Address [facility] Phone Number ERICKEZE PFT NON-INTERFACED (ONBASE SCANS) * (ABNORMAL) Troponin I (10/22/2021 8:05 AM CDT) Troponin I (External) 0.33(H) 0.01 - 0.04 ng/mL NON-INTERFACED (ONBASE SCANS) Blood 10/22/2021 8:05 AM CDT Narrative BREEZE PFT - 11/13/2021 9:26 AM CDT Verified by Pedrito Stallworth on 11/12/2021. [place] Bhakta LAB - [facility]LOOD [facility] Performing Organization Address [facility] de Phone Number ERICKEZE PFT NON-INTERFACED (ONBASE [...] LAB - BLOOD ORDERABL Performing Organization Address [facility] de Phone Number BREEZE PFT NON-INTERFACED (ONBASE SCANS) * Lactic acid whole blood (10/22/2021 4:40 AM CDT) Lactic Acid (External) 1.4 0.5 - 1.9 mmol/L NON-INTERFACED (ONBASE SCANS) Blood 10/22/2021 4:40 AM CDT Narrative BREEZE PFT - 11/13/2021 9:26 AM CDT Verified by Pedrito Stallworth on 11/13/2021. [place] Bhakta [facility] Performing Organization Address [facility] de Phone Number ERICKEZE PFT NON-INTERFACED (ONBASE SCANS) * (ABNORMAL) Lactate Dehydrogenase (10/22/2021 4:40 AM CDT) LD (External) 637(H) 313 - 618 U/L NON-INTERFACED (ONBASE SCANS) Blood 10/22/2021 4:40 AM CDT Narrative BREEZE PFT - 11/13/2021 9:26 AM CDT Verified by Pedrito Stallworth on 11/12/2021. [place] Bhakta LAB - BLOOD ORDERABL Performing Organization Address [facility] de Phone Number BREEZE PFT NON-INTERFACED (ONBASE SCANS) * (ABNORMAL) N terminal pro BNP outpatient (10/22/2021 4:40 AM CDT) N-Terminal Pro BNP (External) 682(H) 0 - 125 PG/mL NON-INTERFACED (ONBASE SCANS) Blood 10/22/2021 4:40 AM CDT Narrative BREEZE PFT - 11/13/2021 9:26 AM CDT Verified by Pedrito Stallworth on 11/12/2021. [place] BourgeoisYony LAB - BLOOD ORDERABL ES Performing Organization Address [facility] de Phone Number ERICKEZE PFT NON-INTERFACED (ONBASE SCANS) * (ABNORMAL) Troponin I (10/22/2021 4:40 AM CDT) Pathologist [facility] Troponin I (External) 0.12(H) 0.01 - 0.04 ng/ml NON-INTERFACED (ONBASE SCANS) Blood 10/22/2021 4:40 AM CDT Narrative BREEZE PFT - 11/13/2021 9:26 AM CDT Verified by Pedrito Stallworth on 11/13/2021. [place] Bhakta LAB - BLOOD ORDERABL Performing Organization Address [facility] de Phone Number ERICKEZE PFT NON-INTERFACED (ONBASE [...] 4+(A) Negative NON-INTERFAC ED (ONBASE SCANS) Specific [place] Urine (External) 1.015 1.000 - 1.030 NON-INTERFAC [...] - URINE ORDERABL ES Performing Organization Address [facility]/ZIP Co de Phone Number BREEZE PFT NON-INTERFACED (ONBASE SCANS) * External Lab Results (10/22/2021 12:18 AM CDT) Scan Lab Results (External) Negative NON-INTERFACE D (ONBASE SCANS) Comment: Influenza A Influenza B 10/22/2021 12:1 8 AM CDT Narrative BREEZE PFT - 11/13/2021 9:26 AM CDT Verified by Pedrito Stallworth on 11/13/2021. [place] Bhakta [facility]ORAT[facility] Performing Organization Address [facility] de Phone Number BREEZE PFT NON-INTERFACED (ONBASE SCANS) * COVID-19 Virus (Coronavirus) by PCR (External Result) (10/21/2021 11:17 PM CDT) COVID-19 Virus by PCR (External Result) Negative Negative NON-INTERFACE D (ONBASE SCANS) 10/21/2021 11:1 7 PM CDT Narrative BREEZE PFT - 11/13/2021 9:26 AM CDT Verified by Pedrito Stallworth on 11/13/2021. [place] Yony LABORATORY Performing Organization Address [facility]/ZIP Co de Phone Number BREEZE PFT NON-INTERFACED (ONBASE SCANS) * (ABNORMAL) External Lab Results (10/21/2021 11:10 PM CDT) Scan Lab Results (External) <0.01(L) 0.01 - 0.03 % NON-INTERFACE D (ONBASE SCANS) Comment:Ethanol 10/21/2021 11:1 0 PM CDT Narrative BREEZE PFT - 11/13/2021 9:26 AM CDT Verified by Pedrito Stallworth on 11/13/2021. [place] Bhakta [facility]ORAT[facility] Performing Organization Address [facility] Co de Phone Number BREEZE [...] ES Performing Organization Address [facility] de Phone Number BREEZE PFT NON-INTERFACED (ONBASE SCANS) * Lipase (10/21/2021 11:10 PM CDT) Lipase Level (External) 39 29 - 300 U/L NON-INTERFACED (ONBASE SCANS) Blood 10/21/2021 11:1 0 PM CDT Narrative BREEZE PFT - 11/13/2021 9:26 AM CDT Verified by Pedrito Stallworth on 11/12/2021. [place] Yony LAB - BLOOD ORDERABL ES Performing Organization Address [facility] Co de Phone Number BREEZE PFT NON-INTERFACED (ONBASE SCANS) * (ABNORMAL) Lactic acid whole blood (10/21/2021 11:10 PM CDT) Lactic Acid (External) 3.0(H) 0.5 - 1.9 mmol/L NON-INTERFACED (ONBASE SCANS) Blood 10/21/2021 11:1 0 PM CDT Narrative BREEZE PFT - 11/13/2021 9:26 AM CDT Verified by Pedrito Stallworth on 11/13/2021. [place] Bhakta LAB - BLOOD ORDERABL Performing Organization Address [facility] Co de Phone Number BREEZE PFT NON-INTERFACED (ONBASE SCANS) * (ABNORMAL) Lactate Dehydrogenase (10/21/2021 11:10 PM CDT) LD (External) 815(H) 313 - 618 IU/L NON-INTERFACED (ONBASE SCANS) Blood 10/21/2021 11:1 0 PM CDT Narrative BREEZE PFT - 11/13/2021 9:26 AM CDT Verified by Pedrito Stallworth on 11/13/2021. [place] Bhakta LAB - BLOOD [facility] Performing Organization Address [facility] de Phone Number BREEZE PFT NON-INTERFACED (ONBASE SCANS) * (ABNORMAL) N terminal pro BNP outpatient (10/21/2021 11:10 PM CDT) N-Terminal Pro BNP (External) 597(H) 0 - 125 pg/ml NON-INTERFACED (ONBASE SCANS) Blood 10/21/2021 11:1 0 PM CDT Narrative BREEZE PFT - 11/13/2021 9:26 AM CDT Verified by Pedrito Stallworth on 11/13/2021. [place] Bhakta LAB - BLOOD ORDERABL Performing Organization Address [facility] Co de Phone Number BREEZE [...] - BLOOD ORDERABL ES Performing Organization Address City/[facility]/ZIP Co de Phone Number BREEZE PFT NON-INTERFACED (ONBASE SCANS) * (ABNORMAL) Glucose (10/21/2021 10:45 PM CDT) Glucose (External) 208(H) 60 - 115 MG/DL NON-INTERFACED (ONBASE SCANS) Blood 10/21/2021 10:4 5 PM CDT Narrative BREEZE PFT - 11/13/2021 9:26 AM CDT Verified by Pedrito Stallworth on 11/13/2021. [place] Bhakta LAB - BLOOD ORDERABL ES Performing Organization Address [facility]/ZIP Co de Phone Number ERICKEZE PFT [...] documented as of this encounter Care Teams Lifts And Cranes Inspector Relationship Specialty Start Date End Date Rubén Boyle MD PCP - General Family Practice 03/08/16 Pamela Blanco MAKE UP ARRANGER [facility] [address] [place], [place] [address] Referring Physician 07/13/16 Pedro Segura MD [facility] [address] [place], [place] [id number] Nephrology 10/03/16 Freddy Craft MD [address] [facility] [address] [place] [address] Assigned Gastroenterology Provider 02/08/20 Abdifatah Van MD [address] [facility] [address] [place] [address] Assigned Nephrology Provider 07/13/20 11/07/23 Nicole Carranza NP [address] [facility] [address] [place] [address] Assigned Heart and Vascular Provider 01/09/22 Andressa Ruiz PA-C [address] [facility] [address] [place] [address] Physician Automotive Sales Specialist Endocrinology, Diabetes, and Metabolism 03/01/22 Ashlyn Storm, RN [facility] [address] [place], [place] [phone] Registered Nurse 03/03/22 09/15/22 Rubén Gunter [facility] [address] [place] [address] Assigned MTM Pharmacist 02/27/22 Andressa Ruiz PA-C [address] [facility] [address] [place], [place] [phone] Assigned Endocrinology Provider 03/13/22 09/07/23 Suzan Harry MD [address] [place], [place] [address] Nephrology 06/30/23 Yasmeen Poewrs MD [address] [place] [address] Nephrology 10/24/23 Yasmeen Powers MD [address] [place] [address] Assigned Nephrology Provider 11/08/23 documented as of this encounter
--- OUTSIDE RECORDS SUMMARY | 2024-01-17 17:26 | XMS_ITS | Encounter Summary ---
Author Organization [facility] Address [address] [place] [address] Care Team Providers Care Crimping Machine Operator Name Role Phone Rubén Boyle MD Primary Care Provider Pamela Blanco MAGNETIC DOCTOR Unavailable [phone] Pedro Segura MD Unavailable [phone] Freddy Craft MD Unavailable Abdifatah Van MD Unavailable Nicole Carranza MAGNETIC DOCTOR Unavailable [phone] Andressa Ruiz-C Unavailable Ashlyn Storm RN Unavailable Rubén Gunter [facility] Unavailable Andressa Ruiz-C Unavailable Suzan Harry MD Unavailable [phone] Yasmeen Powers MD Unavailable [phone] Yasmeen Powers MD Unavailable [phone] Encounter Details Date Type Department Care Team (Late st Contact Info) Description 04/22/2022 External Order Results [facility] [address] [place] [address] Outside, Provider History of liver transplant (H) [...] Coronavirus/COVID-19? No / Unsure 04/05/2022 7:31 AM CIGAR SORTER documented as of this encounter Plan of Treatment Not on file documented as of this encounter Procedures Procedure Name Priority Date/Time Associated Diagnosis Comments CBC WITH PLATELETS & DIFFERENTIAL Routine 04/22/2022 11:39 AM CIGAR SORTER TACROLIMUS BY TANDEM MASS SPECTROMETRY Routine 04/22/2022 11:39 AM CIGAR SORTER History of liver transplant (H) MAGNESIUM Routine 04/22/2022 11:39 AM CIGAR SORTER HEPATIC FUNCTION PANEL Routine 04/22/2022 11:39 AM CIGAR SORTER BASIC METABOLIC PANEL Routine 04/22/2022 11:39 AM CIGAR SORTER documented in this encounter Results * Tacrolimus by Tandem Mass Spectrometry (04/22/2022 11:39 AM CIGAR SORTER) Tacrolimus(FK-5 06) (External) 4.7 ng/mL NON-INTERFACE D (ONBASE SCANS) Blood 04/22/2022 11:3 9 AM CIGAR SORTER Narrative SAMANTHA PFT - 04/26/2022 12:21 PM CIGAR SORTER Verified by Chela Rutledge on 04/26/2022. Freddy Dumont MD LAB - BLOOD ORD ERABLES SAMANTHA PFTameka NON-INTERFACED (ONBASE SCANS) * (ABNORMAL) Basic metabolic panel (04/22/2022 11:39 AM CIGAR SORTER) Sodium (External) 139 135 - 149 mmol/L [...] BLOOD SPECIMEN / Unknown 04/22/2022 11:39 AM CIGAR SORTER Narrative SAMANTHA PFT - 04/23/2022 9:53 AM CIGAR SORTER Verified by Yamil Santo on 04/23/2022. Freddy Dumont MD LAB - BLOOD ORD ERABLES SAMANTHA PF NON-INTERFACED (ONBASE SCANS) * Hepatic function panel (04/22/2022 11:39 AM CIGAR SORTER) Protein Total (External) 6.1 6.0 - 8.3 [...] BLOOD SPECIMEN / Unknown 04/22/2022 11:39 AM CIGAR SORTER Narrative BREEZE PFT - 04/23/2022 9:53 AM CIGAR SORTER Verified by Yamil Santo on 04/23/2022. Freddy Dumont MD LAB - BLOOD ORD ERABLES ERICKEZE PFT NON-INTERFACED (ONBASE SCANS) * Magnesium (04/22/2022 11:39 AM CIGAR SORTER) Magnesium (External) 1.6 1.5 - 2.6 mg/dL NON-INTERFACED (ONBASE SCANS) Blood BLOOD SPECIMEN / Unknown 04/22/2022 11:39 AM CIGAR SORTER Narrative BREEZE PFT - 04/23/2022 9:53 AM CIGAR SORTER Verified by Yamil Santo on 04/23/2022. Freddy Dumont MD LAB - BLOOD ORD ERABLES ERICKEZE PFT NON-INTERFACED (ONBASE SCANS) * (ABNORMAL) CBC with Platelets & Differential (04/22/2022 11:39 AM CIGAR SORTER) WBC Count (External) 2.02(L) 4.50 - 11.00 [...] BLOOD SPECIMEN / Unknown 04/22/2022 11:39 AM CIGAR SORTER Narrative SAMANTHA PFT - 04/23/2022 9:53 AM CIGAR SORTER Verified by Yamil Santo on 04/23/2022. Freddy [...] documented as of this encounter Care Teams Crimping Machine Operator Relationship Specialty Start Date End Date Rubén Boyle MD PCP - General Family Practice 03/08/16 Pamela Blanco MAGNETIC DOCTOR [facility] [address] [place], [place] [address] Referring Physician 07/13/16 Pedro Segura MD [facility] [address] [place], [place] [phone] Nephrology 10/03/16 [address]dy Cr[address] MD [address] [facility] [address] [place], [place] [phone] Assigned Gastroenterology Provider 02/08/20 Abdifatah Van MD [address] [facility] [address] [place] [address] Assigned Nephrology Provider 07/13/20 11/07/23 Nicole Carranza NP [address] [facility] [address] [place] [address] Assigned Heart and Vascular Provider 01/09/22 Andressa Ruiz PA-C 420 [facility] [address]03 [place] [address] Physician Chief Solution Architect Endocrinology, Diabetes, and Metabolism 03/01/22 Ashlyn Storm RN [facility] [address] [place], [place] [phone] Registered Nurse 03/03/22 09/15/22 Rubén Gunter [facility] [address] [place] [address] Assigned MTM Pharmacist 02/27/22 Andressa Ruiz PA-C [address] [facility] [address] [place] [address] Assigned Endocrinology Provider 03/13/22 09/07/23 Suzan Harry MD [address] [place], [place] [address] Nephrology 06/30/23 Yasmeen Powers MD 500 [place] [address] Nephrology 10/24/23 Yasmeen Powers MD [address] [place] [address] Assigned Nephrology Provider 11/08/23 documented as of this encounter
--- OUTSIDE RECORDS SUMMARY | 2024-01-17 17:26 | XMS_ITS | Encounter Summary ---
Author Organization [place] Address [address] [place] [address] Care Team Providers Care Rouge Mixer Name Role Phone Rubén Boyle MD Primary Care Provider [phone] Pamela Blanco UNIT NURSE Unavailable Pedro Segura MD Unavailable Freddy Craft MD Unavailable [phone] Abdifatah Van MD Unavailable Nicole Carranza UNIT NURSE Unavailable [phone] Andressa Ruiz-C Unavailable Ashlyn Storm RN Unavailable [phone] Rubén Gunter [facility] Unavailable Andressa Ruiz-C Unavailable [phone] Suzan Harry MD Unavailable [phone] Yasmeen Powers MD Unavailable [phone] Yasmeen Powers MD Unavailable [phone] Reason for Visit * Reason Onset Date Comments Call Back 11/04/2021 Alex is request ing call back to go over lab results Critical Values 11/04/2021 Encounter Details Date Type Department Care Team ([facility] Contact Info) Description 11/04/2021 Telephone [facility] [address] [address] Freddy Craft MD [address] [place] [address] [address] [place] [address] Call Back (Alex is requesting call back [...] 11/05/2021 9:01 AM CDT Differential faxed to [facility] to be added on to recent labs with WBC 1.93. ADDENDUM: Records requested from [facility] re: all labs from 10/2021 * Telephone Encounter - Laurie Carmen LPN - 11/05/2021 8:46 AM CDT DATE: 11/05/2021 TIME OF RECEIPT FROM LAB: 8:46 ORDERING PROVIDER: Elio LAB TEST: wbc LAB VALUE: 1.93 RESULTS GIVEN WITH READ-BACK TO (PROVIDER): Catia Su TIME LAB VALUE REPORTED TO PROVIDER: 8:46 * Telephone Encounter - Loren Adan - 11/04/2021 4:55 PM CDT [facility] Phone Message May a detailed message be left on voicemail: yes Reason for Call: Other: Alex from [facility] is requesting a call back to go over patient's labs, they found that patient has a low white cell count. Please call them back at [phone], thank you! 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, 07/10/16 rectal swab 06/21/2016 06/21/2016 documented as of this encounter Care Teams Rouge Mixer Relationship Specialty Start Date End Date Rubén Boyle MD PCP - General Family Practice 03/08/16 Pamela Blanco UNIT NURSE [facility] [address] [place], [place] [address]37 Referring Physician 07/13/16 Pedro Segura MD [facility] [address] [place], [place] [address] Nephrology 10/03/16 Freddy Craft MD [facility] [address] [place] [address] Assigned Gastroenterology Provider 02/08/20 Abdifatah Van MD [address] [place] [address] Assigned Nephrology Provider 07/13/20 11/07/23 Nicole Carranza NP 420 [facility] [address] [place] [address] Assigned Heart and Vascular Provider 01/09/22 Andressa Ruiz PA-C 420 [facility] 803 [place] [address] Physician Cement Kiln Operator Endocrinology, Diabetes, and Metabolism 03/01/22 Ashlyn Storm, RN [facility] 711 [place] [address] Registered Nurse 03/03/22 09/15/22 Rubén Gunter [facility] [address] [place] [address] Assigned MTM Pharmacist 02/27/22 Andressa Ruiz PA-C 420 [facility] 803 [place] [address] Assigned Endocrinology Provider 03/13/22 09/07/23 Suzan Harry MD [address] [place] [address] Nephrology 06/30/23 Yasmeen Powers MD [address] [place] [address] Nephrology 10/24/23 Yasmeen Powers MD [address] [place] [address] Assigned Nephrology Provider 11/08/23 documented as of this encounter
--- OUTSIDE RECORDS SUMMARY | 2024-01-17 17:26 | XMS_ITS | Encounter Summary ---
Author Organization [place] Address [address] [place] [address] Care Team Providers Care Senior Applications Developer Name Role Phone Rubén Byole MD Primary Care Provider Pamela Blanco NEON LIGHT INSTALLER Unavailable [phone] Pedro Segura MD Unavailable [phone] Freddy Craft MD Unavailable Abdifatah Van MD Unavailable Nicole Carranza NEON LIGHT INSTALLER Unavailable [phone] Andressa Ruiz-C Unavailable Ashlyn Storm RN Unavailable [phone] Rubén Gunter [facility] Unavailable Andressa Ruiz-C Unavailable Suzan Harry MD Unavailable [phone] Yasmeen Powers MD Unavailable [phone] Yasmeen Powers MD Unavailable [phone] Reason for Visit * Reason Onset Date Comments Appointment 12/16/2021 Appt for dx Aort ic Stenosis Encounter Details Date Type Department Care Team (Late st Contact Info) Description 12/16/[address] [place] [address] None Appointment (Appt for dx Aortic Stenosis) [...] may need valve replacement. Echo done at [facility] 10/24/21 Did offer if pt wants appt at [place] but he req for [facility] aware to wait for clinic to call [...] as of this encounter Care Teams Senior Applications Developer Relationship Specialty Start Date End Date Rubén Boyle MD PCP - General Family Practice 03/08/16 Pamela Blanco, NEON LIGHT INSTALLER [facility] [address] [place] [address] Referring Physician 07/13/16 Pedro Segura MD [facility] [address] [place], [place] [address] Nephrology 10/03/16 Freddy Carft MD [facility] 2[facility] [place], [place] [address] Assigned Gastroenterology Provider 02/08/20 Abdifatah Van MD 717 [facility] [address] [place], [place] [address] Assigned Nephrology Provider 07/13/20 11/07/23 Nicole Carranza NP 420 [facility] 508 [place], [place] [address] Assigned Heart and Vascular Provider 01/09/22 Andressa Ruiz PA-C 420 [facility] 803 [place], [place] [address] Physician Retort Or Condenser Press Operator Endocrinology, Diabetes, and Metabolism 03/01/22 Ashlyn Storm, RN [facility] 711 [place], [place] 97[address]44 Registered Nurse 03/03/22 09/15/22 Rubén Gunter [facility] 909 [place] [address] Assigned MTM Pharmacist 02/27/22 Andressa Ruiz PA-C 420 [facility] 803 [place], [place] 1[address]35 Assigned Endocrinology Provider 03/13/22 09/07/23 Suzan Harry MD 420 [place], [place] [address] Nephrology 06/30/23 Yasmeen Powers MD 500 [place] [address] Nephrology 10/24/23 Yasmeen Powers MD 500 [place] [address] Assigned Nephrology Provider 11/08/23 documented as of this encounter
--- OUTSIDE RECORDS SUMMARY | 2024-01-17 17:26 | XMS_ITS | Encounter Summary ---
Author Organization [place] Address [address] [place] [address] Care Team Providers Care Wreath Maker Name Role Phone Rubén Boyle MD Primary Care Provider Pamela Blanco COAL GRADER Unavailable [phone] Pedro Segura MD Unavailable Freddy Craft MD Unavailable Abdifatah Van MD Unavailable Nicole Carranza COAL GRADER Unavailable [phone] Andressa Ruiz-C Unavailable [phone] Ashlyn Storm RN Unavailable [phone] Rubén Gunter [facility] Unavailable Andressa Ruiz-C Unavailable Suzan Harry MD Unavailable [phone] Yasmeen Powers MD Unavailable [phone] Yasmeen Powers MD Unavailable [phone] Encounter Details Date Type Department Care Team (Late st Contact Info) Description 05/17/2022 External Order Results [facility] [address] [place] [address] Outside, Provider History of liver transplant (H) [...] PLATELETS & DIFFERENTIAL Routine 05/17/2022 3:24 PM TURBINATED BONE GRINDER TACROLIMUS BY TANDEM MASS SPECTROMETRY Routine 05/17/2022 3:24 PM TURBINATED BONE GRINDER MAGNESIUM Routine 05/17/2022 3:24 PM TURBINATED BONE GRINDER HEPATIC FUNCTION PANEL Routine 05/17/2022 3:24 PM TURBINATED BONE GRINDER History of liver transplant (H) BASIC METABOLIC PANEL Routine 05/17/2022 3:24 PM TURBINATED BONE GRINDER History of liver transplant (H) documented in this encounter Results * Tacrolimus by Tandem Mass Spectrometry (05/17/2022 3:24 PM TURBINATED BONE GRINDER) Tacrolimus(FK-5 06) (External) 7.8 5.0 - 15.0 ng/mL NON-INTERFACED (ONBASE SCANS) Blood 05/17/2022 3:24 PM TURBINATED BONE GRINDER Narrative ERICKEZKayli PFT - 05/24/2022 2:19 PM TURBINATED BONE GRINDER Verified by Pedrito Stallworth on 05/24/2022. Freddy Dumont MD LAB - BLOOD ORD ERABLES SAMANTHA PFT NON-INTERFACED (ONBASE SCANS) * (ABNORMAL) Magnesium (05/17/2022 3:24 PM TURBINATED BONE GRINDER) Magnesium (External) 1.4(L) 1.5 - 2.6 mg/dL NON-INTERFACED (ONBASE SCANS) Blood BLOOD SPECIMEN / Unknown 05/17/2022 3:24 PM TURBINATED BONE GRINDER Narrative SAMANTHA PFT - 05/19/2022 2:28 PM TURBINATED BONE GRINDER Verified by Melissa Otto on 05/19/2022. Freddy Dumont MD LAB - BLOOD ORD ERABLES SAMANTHA PFT NON-INTERFACED (ONBASE SCANS) * (ABNORMAL) CBC with Platelets & Differential (05/17/2022 3:24 PM TURBINATED BONE GRINDER) WBC Count (External) 4.48(L) 4.50 - 11.00 [...] BLOOD SPECIMEN / Unknown 05/17/2022 3:24 PM TURBINATED BONE GRINDER Narrative SAMANTHA PFT - 05/19/2022 2:28 PM TURBINATED BONE GRINDER Verified by Melissa Otto on 05/19/2022. Freddy Dumont MD LAB - BLOOD ORD ERABLES SAMANTHA PFT NON-INTERFACED (ONBASE SCANS) * (ABNORMAL) Basic metabolic panel (05/17/2022 3:24 PM TURBINATED BONE GRINDER) Sodium (External) 137 135 - 149 mmol/L [...] NON-INTERFACED (ONBASE SCANS) Blood 05/17/2022 3:24 PM TURBINATED BONE GRINDER Narrative BREEZE PFT - 05/19/2022 2:28 PM TURBINATED BONE GRINDER Verified by Melissa Otto on 05/19/2022. Freddy Dumont MD LAB - BLOOD GANTEC SAMANTHA PFT NON-INTERFACED (ONBASE SCANS) * (ABNORMAL) Hepatic function panel (05/17/2022 3:24 PM TURBINATED BONE GRINDER) Protein Total (External) 6.7 6.0 - 8.3 [...] D (ONBASE SCANS) Blood 05/17/2022 3:24 PM TURBINATED BONE GRINDER Narrative BREEZE PFT - 05/19/2022 2:28 PM TURBINATED BONE GRINDER Verified by Melissa Otto on 05/19/2022. Freddy Dumont MD LAB - BLOOD GANTEC SAMANTHA PFT NON-INTERFACED (ONBASE SCANS) documented in this encounter Visit Diagnoses Diagnosis History of liver transplant (H) Liver replaced by transplant documented in this encounter Additional Health Concerns Infection Onset Date Last Indicated Resolved Time 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/16 urine, 07/10/16 rectal swab 06/21/2016 06/21/2016 documented as of this encounter Care Teams Wreath Maker Relationship Specialty Start Date End Date Boyle, Frank, MD PCP - General Family Practice 03/08/16 Pamela Blanco COAL GRADER [facility] [address] [place] [address] Referring Physician 07/13/16 Pedro Segura MD [facility] [address] [place], [place] [address]897 Nephrology 10/03/16 Freddy Craft MD 516 [facility] 2[facility] [place], [place] [address] Assigned Gastroenterology Provider 02/08/20 Abdifatah Van MD 717 [facility] [address] [place], [place] [address] Assigned Nephrology Provider 07/13/20 11/07/23 Nicole Carranza NP 420 [facility] 508 [place], [place] [address] Assigned Heart and Vascular Provider 01/09/22 Andressa Ruiz PA-C 420 [facility] 803 [place], [place] [address] Physician Electronic Organ Technician Endocrinology, Diabetes, and Metabolism 03/01/22 Ashlyn Storm, RN [facility] 711 [place], [place] [address] Registered Nurse 03/03/22 09/15/22 Rubén Gunter [facility] 909 [place] [address] Assigned MTM Pharmacist 02/27/22 Andressa Ruiz PA-C 420 [facility] 803 [place] [address] Assigned Endocrinology Provider 03/13/22 09/07/23 Suzan Harry MD 420 [place] [address] Nephrology 06/30/23 Yasmeen Powers MD 500 [place] [address] Nephrology 10/24/23 Yasmeen Powers MD 500 [place] [address] Assigned Nephrology Provider 11/08/23 documented as of this encounter
--- OUTSIDE RECORDS SUMMARY | 2024-01-17 17:26 | XMS_ITS | Encounter Summary ---
Author Organization [facility] Address [address] [place] [address] Care Team Providers Care Bag Machine Operator Helper Name Role Phone Rubén Boyle MD Primary Care Provider [phone] Pamela Blanco SURVEILLANCE SUPERVISOR Unavailable Pedro Segura MD Unavailable Freddy Craft MD Unavailable Abdifatah Van MD Unavailable Nicole Carranza SURVEILLANCE SUPERVISOR Unavailable [phone] Andressa Ruiz-C Unavailable [phone] Ashlyn Storm RN Unavailable Rubén Gunter [facility] Unavailable Andressa Ruiz-C Unavailable Suzan Harry MD Unavailable [phone] Yasmeen Powers MD Unavailable [phone] Yasmeen Powers MD Unavailable [phone] Encounter Details Date Type Department Care Team (Late st Contact Info) Description 01/25/2022 [facility] 9[address] [place] [address] Calli Hall RN Social History [...] documented as of this encounter Care Teams Bag Machine Operator Helper Relationship Specialty Start Date End Date Rubén Boyle MD PCP - General Family Practice 03/08/16 Pamela Blanco NP [facility] [address] [place] [address] Referring Physician 07/13/16 Pedro Segura MD [facility] [address] [place] [address] Nephrology 10/03/16 Freddy Craft MD [address] [address] Assigned Gastroenterology Provider 02/08/20 Abdifatah Van MD 717 [facility] [address] [place] [address] Assigned Nephrology Provider 07/13/20 11/07/23 Nicole Carranza NP 420 [facility] 508 [place] [address] Assigned Heart and Vascular Provider 01/09/22 Andressa Ruiz PA-C 420 [facility] 803 [place] [address] Physician Extraction Supervisor Endocrinology, Diabetes, and Metabolism 03/01/22 Ashlyn Storm, RN [facility] 711 [place] [address] Registered Nurse 03/03/22 09/15/22 Rubén Gunter [facility] [address] [place] [address] Assigned MTM Pharmacist 02/27/22 Andressa Ruiz PA-C 420 [facility] 803 [place] [address] Assigned Endocrinology Provider 03/13/22 09/07/23 Suzan Harry MD 420 [place] [address] Nephrology 06/30/23 Yasmeen Powers MD 500 [place], [place] [address] Nephrology 10/24/23 Yasmeen Powers MD 500 [place] [address] Assigned Nephrology Provider 11/08/23 documented as of this encounter
--- OUTSIDE RECORDS SUMMARY | 2024-01-17 17:26 | XMS_ITS | Encounter Summary ---
Author Organization [facility] Address [address] [place] [address] Care Team Providers Care [employer] Hazmat Tanker Driver Name Role Phone Rubén Boyle MD Primary Care Provider [phone] Pamela Blanco BAY STOCKER Unavailable Pedro Segura MD Unavailable Freddy Craft MD Unavailable Abdifatah Van MD Unavailable Nicole Carranza BAY STOCKER Unavailable Andressa Ruiz-C Unavailable Ashlyn Storm RN Unavailable [phone] Rubén Gunter [facility] Unavailable Andressa Ruiz-C Unavailable Suzan Harry MD Unavailable [phone] Yasmeen Powers MD Unavailable Yasmeen Powers MD Unavailable [phone] Encounter Details Date Type Department Care Team (Late st Contact Info) Description 05/12/2022 [facility] Medical Advice [facility] 909 [facility] 3rd Floor Clinic [address] [place] [address] Ashlyn Storm, RN [facility] 711 [place], [place] [address] Social History Tobacco Use Types Packs/Day Years [...] documented as of this encounter Care Teams Regional Company Hazmat Tanker Driver Relationship Specialty Start Date End Date Rubén Boyle MD PCP - General Family Practice 03/08/16 Pamela Blanco NP [facility] [address] [place] [address] Referring Physician 07/13/16 Pedro Segura MD [facility] [address] [place], [place] [address] Nephrology 10/03/16 Freddy Craft MD 516 [facility] 2A [place] [address] Assigned Gastroenterology Provider 02/08/20 Abdifatah Van MD 717 [facility] [address] [place] [address] Assigned Nephrology Provider 07/13/20 11/07/23 Nicole Carranza NP 420 [facility] 508 [place] [address] Assigned Heart and Vascular Provider 01/09/22 Andressa Ruiz PA-C 420 [facility] 803 [place] [address] Physician Statistics Intern Endocrinology, Diabetes, and Metabolism 03/01/22 Ashlyn Storm RN [facility] 711 [place] [address] Registered Nurse 03/03/22 09/15/22 Rubén Gunter [facility] [address] [place] [address] Assigned MTM Pharmacist 02/27/22 Andressa Ruiz PA-C [address] [place], [place] [address] [place] [address] Assigned Endocrinology Provider 03/13/22 09/07/23 Suzan Harry MD [address] [place] [address] Nephrology 06/30/23 Yasmeen Powers MD 500 [place], [place] [address] Nephrology 10/24/23 Yasmeen Powers MD 500 [place] [address] Assigned Nephrology Provider 11/08/23 documented as of this encounter
--- OUTSIDE RECORDS SUMMARY | 2024-01-17 17:26 | XMS_ITS | Encounter Summary ---
Author Organization [facility] Address [address] [place] [address] Care Team Providers Care Pest Control Operator Name Role Phone Rubén Boyle MD Primary Care Provider Pamela Blanco TELETYPE TELEGRAPHER Unavailable Pedro Segura MD Unavailable Freddy Craft MD Unavailable [phone] Abdifatah Van MD Unavailable Nicole Carranza TELETYPE TELEGRAPHER Unavailable [phone] Andressa Ruiz-C Unavailable Ashlyn Storm RN Unavailable Rubén Gunter [facility] Unavailable Andressa Ruiz-C Unavailable Suzan Harry MD Unavailable [phone] Yasmeen Powers MD Unavailable [phone] Yasmeen Powers MD Unavailable [phone] Encounter Details Date Type Department Care Team (Late st Contact Info) Description 03/03/2022 [facility] [address] 3rd [place] [address] [facility] Social History Tobacco Use Types Packs/Day [...] Coronavirus/COVID-19? No / Unsure 02/24/2022 7:54 AM STAND UP FORKLIFT OPERATOR documented as of this encounter Plan of Treatment Not on file documented as of this encounter Visit Diagnoses Not on filedocumented in this encounter Additional Health Concerns Infection Onset Date Last Indicated Resolved Time 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/16 urine, 07/10/16 rectal swab 06/21/2016 06/21/2016 documented as of this encounter Care Teams Pest Control Operator Relationship Specialty Start Date End Date Rubén Boyle MD PCP - General Family Practice 03/08/16 Pamela Blanco NP [facility] [address] [place] [address] Referring Physician 07/13/16 Pedro Segura MD [facility] [address] [place] [address] Nephrology 10/03/16 Freddy Craft MD [address] [address] Assigned Gastroenterology Provider 02/08/20 Abdifatah Van MD 717 [facility] [address] [place] [address] Assigned Nephrology Provider 07/13/20 11/07/23 Nicole Carranza NP 420 [facility] 508 [place] [address] Assigned Heart and Vascular Provider 01/09/22 Andressa Ruiz PA-C 420 [facility] 803 [place] [address] Physician Bass Guitar Teacher Endocrinology, Diabetes, and Metabolism 03/01/22 Ashlyn Storm, RN [facility] 711 [place] [address] Registered Nurse 03/03/22 09/15/22 Rubén Gunter [facility] [address] [place] [address] Assigned MTM Pharmacist 02/27/22 Andressa Ruiz PA-C 420 [facility] 803 [place] [address] Assigned Endocrinology Provider 03/13/22 09/07/23 Suzan Harry MD 420 [place] [address] Nephrology 06/30/23 Yasmeen Powers MD 500 [place], [place] [address] Nephrology 10/24/23 Yasmeen Powers MD 500 [place] [address] Assigned Nephrology Provider 11/08/23 documented as of this encounter
--- OUTSIDE RECORDS SUMMARY | 2024-01-17 17:26 | XMS_ITS | Encounter Summary ---
Author Organization [facility] Address [address] [place] [address] Care Team Providers Care Guest Experience Specialist Name Role Phone Rubén Boyle MD Primary Care Provider Pamela Blanco OPTICAL ENGINEERING TECHNICIAN Unavailable Pedro Segura MD Unavailable Freddy Craft MD Unavailable Abdifatah Van MD Unavailable Nicole Carranza OPTICAL ENGINEERING TECHNICIAN Unavailable [phone] Andressa Ruiz-C Unavailable Ashlyn Storm RN Unavailable [phone] Rubén Gunter [facility] Unavailable Andressa Ruiz-C Unavailable [phone] Suzan Harry MD Unavailable [phone] Yasmeen Powers MD Unavailable [phone] Yasmeen Powers MD Unavailable [phone] Encounter Details Date Type Department Care Team (Late st Contact Info) Description 02/22/2022 External Order Results [facility] [address] [place] [address] Outside, Provider Social History Tobacco Use Types [...] Coronavirus/COVID-19? No / Unsure 02/24/2022 7:54 AM SIGNAL MAINTAINER documented as of this encounter Plan of Treatment Not on file documented as of this encounter Procedures Procedure Name Priority Date/Time Associated Diagnosis Comments COVID-19 VIRUS (CORONAVIRUS) BY PCR (EXTERNAL RESULT) Routine 02/22/2022 10:45 AM SIGNAL MAINTAINER documented in this encounter Results * COVID-19 Virus (Coronavirus) by PCR (External Result) (02/22/2022 10:45 AM SIGNAL MAINTAINER) COVID-19 Virus by PCR (External Result) Negative Negative NON-INTERFACE D (ONBASE SCANS) 02/22/2022 10:4 5 AM SIGNAL MAINTAINER Narrative SAMANTHA PFT - 02/23/2022 3:26 PM SIGNAL MAINTAINER Verified by Rhiannon Cani on 02/23/2022. 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, 07/10/16 rectal swab 06/21/2016 06/21/2016 documented as of this encounter Care Teams Guest Experience Specialist Relationship Specialty Start Date End Date Rubén Boyle MD PCP - General Family Practice 03/08/16 Pamela Blanco OPTICAL ENGINEERING TECHNICIAN [facility] [address] [place] [address] Referring Physician 07/13/16 Pedro Segura MD [facility] [address] [place] [address] Nephrology 10/03/16 Freddy Craft MD 516 [facility] [address] [place], [place] [address] Assigned Gastroenterology Provider 02/08/20 Abdifatah Van MD 717 [facility] [address] [place], [place] [address] Assigned Nephrology Provider 07/13/20 11/07/23 Nicole Carranza NP 420 [facility] [address] [place], [place] [address] Assigned Heart and Vascular Provider 01/09/22 Andressa Ruiz PA-C 420 [facility] 803 [place], [place] [address] Physician Pediatric Assistant Endocrinology, Diabetes, and Metabolism 03/01/22 Ashlyn Storm RN [facility] 711 [place], [place] [address] Registered Nurse 03/03/22 09/15/22 Rubén Gunter [facility] 909 [facility] [place], [place] [address] Assigned MTM Pharmacist 02/27/22 Andressa Ruiz PA-C 420 [facility] 8[address] [place], [place] [address] Assigned Endocrinology Provider 03/13/22 09/07/23 Suzan Harry MD 420 [place], [place] [address] Nephrology 06/30/23 Yasmeen Powers MD 500 [place], [place] 9[address] Nephrology 10/24/23 Yasmeen Powers MD 500 [place] [address] Assigned Nephrology Provider 11/08/23 documented as of this encounter
--- OUTSIDE RECORDS SUMMARY | 2024-01-17 17:26 | XMS_ITS | Encounter Summary ---
Author Organization [place] Address [address] [place] [address] Care Team Providers Care Employee Development Manager Name Role Phone Rubén Boyle MD Primary Care Provider [phone] Pamela Blanco ASSEMBLER CONVERTIBLE TOP Unavailable Pedro Segura MD Unavailable [phone] Freddy Craft MD Unavailable Abdifatah Van MD Unavailable Nicole Carranza ASSEMBLER CONVERTIBLE TOP Unavailable [phone] Andressa Ruiz-C Unavailable Ashlyn Storm RN Unavailable Rubén Gunter [facility] Unavailable Andressa Ruiz-C Unavailable [phone] Suzan Harry MD Unavailable [phone] Yasmeen Powers MD Unavailable [phone] Yasmeen Powers MD Unavailable [phone] Encounter Details Date Type Department Care Team (Late st Contact Info) Description 11/04/2021 External Order Results [facility] [address] [place] [address] Outside, Provider History of liver transplant (H) [...] - BLOOD ORD ERABLES Performing Organization Address [facility] Co de Phone Number [facility] PFT NON-INTERFACED (ONBASE SCANS) * Hepatic [...] - BLOOD ORD ERALASHAE Performing Organization Address [facility] Co de Phone Number [...] documented as of this encounter Care Teams Employee Development Manager Relationship Specialty Start Date End Date Rubén Boyle MD PCP - General Family Practice 03/08/16 Pamela Blanco ASSEMBLER CONVERTIBLE TOP [facility] [address] [place] [address] Referring Physician 07/13/16 Pedro Segura MD [facility] [address] [place], [place] 0[address]27 Nephrology 10/03/16 Freddy Craft MD 516 [facility] [address] [place], [place] 9[address] Assigned Gastroenterology Provider 02/08/20 Abdifatah Van MD [address] [place], [place] [address] Assigned Nephrology Provider 07/13/20 11/07/23 Nicole Carranza, [place] 420 [facility] 508 [place] [address] Assigned Heart and Vascular Provider 01/09/22 Andressa Ruiz PA-C 420 [facility] 803 [place], [place] 379765 Physician Referral Manager Endocrinology, Diabetes, and Metabolism 03/01/22 Ashlyn Storm, RN [facility] 711 [place], [place] 067774 Registered Nurse 03/03/22 09/15/22 Rubén Gunter [facility] 909 [place], [place] 764565 Assigned MTM Pharmacist 02/27/22 Andressa Ruiz PA-C 420 [facility] 803 [place], [place] 389545 Assigned Endocrinology Provider 03/13/22 09/07/23 Suzan Harry MD 420 [place], [place] 601605 Nephrology 06/30/23 Yasmeen Powers MD 500 [place], [place] 845975 Nephrology 10/24/23 Yasmeen Powers MD 500 [place] [address] Assigned Nephrology Provider 11/08/23 documented as of this encounter
--- OUTSIDE RECORDS SUMMARY | 2024-01-17 17:26 | XMS_ITS | Encounter Summary ---
Author Organization [place] Address [address] [place] [address] Care Team Providers Care Patient Registration Clerk Name Role Phone Rubén Boyle MD Primary Care Provider Pamela Blanco CRYSTALLOGRAPHER Unavailable [phone] Pedro Segura MD Unavailable [phone] Freddy Craft MD Unavailable Abdifatah Van MD Unavailable Nicole Carranza CRYSTALLOGRAPHER Unavailable [phone] Andressa Ruiz-C Unavailable Ashlyn Storm RN Unavailable [phone] Rubén Gunter [facility] Unavailable Andressa Ruiz-C Unavailable Suzan Harry MD Unavailable [phone] Yasmeen Powers MD Unavailable [phone] Yasmeen Powers MD Unavailable [phone] Encounter Details Date Type Department Care Team (Late st Contact Info) Description 01/13/2022 [facility] 909 [place] [address] Ami Rivero LPN Social History [...] as of this encounter Care Teams Patient Registration Clerk Relationship Specialty Start Date End Date Rubén Boyle MD PCP - General Family Practice 03/08/16 Pamela Blanco CRYSTALLOGRAPHER [facility] [address] [place] [address] Referring Physician 07/13/16 Pedro Segura MD [facility] [address] [place] [address] Nephrology 10/03/16 Freddy Craft MD [address] [address] Assigned Gastroenterology Provider 02/08/20 Abdifatah Van MD [address] [place] [address] [address] [place] [address] Assigned Nephrology Provider 07/13/20 11/07/23 Nicole Carranza NP 420 [facility] 508 [place] [address] Assigned Heart and Vascular Provider 01/09/22 Andressa Ruiz PA-C 420 [facility] 803 [place] [address] Physician Gut Puller Endocrinology, Diabetes, and Metabolism 03/01/22 Ashlyn Storm RN [facility] 711 [place] [address] Registered Nurse 03/03/22 09/15/22 Rubén Gunter [facility] [address] [place] [address] Assigned MTM Pharmacist 02/27/22 Andressa Ruiz PA-C 420 [facility] 803 [place] [address] Assigned Endocrinology Provider 03/13/22 09/07/23 Suzan Harry MD 420 [place] [address] Nephrology 06/30/23 Yasmeen Powers MD 500 [place], [place] 549915 Nephrology 10/24/23 Yasmeen Powers MD 500 [place] [address] Assigned Nephrology Provider 11/08/23 documented as of this encounter
--- OUTSIDE RECORDS SUMMARY | 2024-01-17 17:26 | XMS_ITS | Encounter Summary ---
Author Organization [place] Address [address] [place] [address]. [place] [address] Care Team Providers Care Lead Miner Blasting Name Role Phone Rubén Boyle MD Primary Care Provider Pamela Blanco GEOPHYSICAL ENGINEER Unavailable Pedro Segura MD Unavailable Freddy Craft MD Unavailable [phone] Abdifatah Van MD Unavailable Nicole Carranza GEOPHYSICAL ENGINEER Unavailable Andressa Ruiz-C Unavailable [phone] Ashlyn Storm RN Unavailable Rubén Gunter [facility] Unavailable Andressa Ruiz-C Unavailable Suzan Harry MD Unavailable [phone] Yasmeen Powers MD Unavailable Yasmeen Powers MD Unavailable Encounter Details Date Type Department Care Team (Late st Contact Info) Description 02/23/2022 My[facility] Medical Advice UR PREOP/PHASE II 2450 [place] [address] Laurie Torres Social History Tobacco [...] Coronavirus/COVID-19? 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, 07/10/16 rectal swab 06/21/2016 06/21/2016 documented as of this encounter Care Teams Lead Miner Blasting Relationship Specialty Start Date End Date Rubén Boyle MD PCP - General Family Practice 03/08/16 Pamela Blanco NP [facility] [address] [place] [address] Referring Physician 07/13/16 Pedro Segura MD [facility] [address] [place] [address] Nephrology 10/03/16 Freddy Craft MD [address] 1714[address] Assigned Gastroenterology Provider 02/08/20 Abdifatah Van MD 717 [facility] 353 [place] [address] Assigned Nephrology Provider 07/13/20 11/07/23 Nicole Carranza NP 420 [facility] 508 [place] [address] Assigned Heart and Vascular Provider 01/09/22 Andressa Ruiz PA-C 420 [facility] 803 [place] [address] Physician Ballet Dancer Endocrinology, Diabetes, and Metabolism 03/01/22 Ashlyn Storm, RN [facility] 711 [place] [address] Registered Nurse 03/03/22 09/15/22 Rubén Gunter [facility] [address] [place] [address] Assigned MTM Pharmacist 02/27/22 Andressa Ruiz PA-C 420 [facility] 803 [place] [address] Assigned Endocrinology Provider 03/13/22 09/07/23 Suzan Harry MD 420 [place] [address] Nephrology 06/30/23 Yasmeen Powers MD 500 [place], [place] 588505 Nephrology 10/24/23 Yasmeen Powers MD 500 [place], [place] 477215 Assigned Nephrology Provider 11/08/23 documented as of this encounter
[2024-01-17 17:27] LABS: Creatinine* 4.3 mg/dL (0.5-1.5); Est. Creatinine Clearance* 15.76; Estimated Glomerular Filt Rate 14 ml/min
--- OUTSIDE RECORDS SUMMARY | 2024-01-17 17:27 | XMS_ITS | Encounter Summary ---
Author Organization [place] Address [address] [place] [address] Care Team Providers Care Manager Metal Name Role Phone Rubén Boyle MD Primary Care Provider [phone] Pamela Blanco GARBAGE COLLECTOR SUPERVISOR Unavailable Pedro Segura MD Unavailable [phone] Freddy Craft MD Unavailable [phone] Abdifatah Van MD Unavailable Nicole Carranza GARBAGE COLLECTOR SUPERVISOR Unavailable [phone] Andressa Ruiz-C Unavailable Ashlyn Storm RN Unavailable [phone] Rubén Gunter [facility] Unavailable Andressa Ruiz-C Unavailable Suzan Harry MD Unavailable [phone] Yasmeen Powers MD Unavailable [phone] Yasmeen Powers MD Unavailable [phone] Encounter Details Date Type Department Care Team (Late st Contact Info) Description 01/28/2021 External Order Results [facility] [address] [place] [address] Outside, Provider Lipid screening; Liver replaced by [...] - URINE ORD ERALASHAE Performing Organization Address [facility] Co de Phone Number BREEZE PFT NON-INTERFACED [...] - BLOOD ORD ERABLES Performing Organization Address City/[facility]/ZIP Co de Phone Number ERICKEZE PFT [...] as of this encounter Care Teams Manager Metal Relationship Specialty Start Date End Date Rubén Boyle MD PCP - General Family Practice 03/08/[address] [facility] [address] [place], [place] [address] Referring Physician 07/13/[address] [facility] [address] [place], [place] 30[address]47 Nephrology 10/03/16 Freddy Craft MD 516 [facility] [address] [place], [place] [address] Assigned Gastroenterology Provider 02/08/20 Abdifatah Van MD [address] [facility] [address] [place] [address] Assigned Nephrology Provider 07/13/20 11/07/23 Nicole Carranza NP 420 [facility] 508 [place], [place] 302625 Assigned Heart and Vascular Provider 01/09/22 Andressa Ruiz PA-C 420 [facility] 803 [place], [place] 129465 Physician Put In Beat Adjuster Endocrinology, Diabetes, and Metabolism 03/01/22 Ashlyn Storm, RN [facility] 711 [place] [address] Registered Nurse 03/03/22 09/15/22 Rubén Gunter [facility] 909 [place] [address] Assigned MTM Pharmacist 02/27/22 Andressa Ruiz PA-C 420 [facility] 803 [place], [place] 847015 Assigned Endocrinology Provider 03/13/22 09/07/23 Suzan Harry MD 420 [place], [place] 16[address]95 Nephrology 06/30/23 Yasmeen Powers MD 500 [place] [address] Nephrology 10/24/23 Yasmeen Powers MD 500 [place] [address] Assigned Nephrology Provider 11/08/23 documented as of this encounter
--- OUTSIDE RECORDS SUMMARY | 2024-01-17 17:27 | XMS_ITS | Encounter Summary ---
Author Organization [place] Address [address] [place] [address] Care Team Providers Care Co Founder And Ceo Name Role Phone Rubén Boyle MD Primary Care Provider Pamela Blanco AURICULOTHERAPIST Unavailable [phone] Pedro Segura MD Unavailable Freddy Craft MD Unavailable Abdifatah Van MD Unavailable Nicole Carranza AURICULOTHERAPIST Unavailable [phone] Andressa Ruiz PA-C Unavailable [phone] Ashlyn Storm RN Unavailable [phone] Rubén Gunter [facility] Unavailable Andressa Ruiz-C Unavailable [phone] Suzan Harry MD Unavailable [phone] Yasmeen Powers MD Unavailable [phone] Yasmeen Powers MD Unavailable [phone] Encounter Details Date Type Department Care Team (Late st Contact Info) Description 06/25/2021 [facility] 909 [place] [address] Calli Hall RN Social History [...] documented as of this encounter Care Teams Co Founder And Ceo Relationship Specialty Start Date End Date Rubén Boyle MD PCP - General Family Practice 03/08/16 Pamela Blanco AURICULOTHERAPIST [facility] [address] [place], [place] 264197 Referring Physician 07/13/16 Pedro Segura MD [facility] [address] [place], [place] 370337 Nephrology 10/03/16 Freddy Craft MD 516 [facility] [address] [place], [place] [address] Assigned Gastroenterology Provider 02/08/20 Abdifatah Van MD 717 [facility] [address] [place], [place] 920774 Assigned Nephrology Provider 07/13/20 11/07/23 Nicole Carranza NP 420 [facility] 508 [place], [place] 2[address]95 Assigned Heart and Vascular Provider 01/09/22 Andressa Ruiz PA-C 420 [facility] 803 [place], [place] 722265 Physician Floor Layer Tile Endocrinology, Diabetes, and Metabolism 03/01/22 Ashlyn Storm, RN [facility] 711 [place], [place] 582494 Registered Nurse 03/03/22 09/15/22 Rubén Gunter [facility] [address] [place] [address] Assigned MTM Pharmacist 02/27/22 Andressa Ruiz PA-C 420 [facility] 803 [place], [place] 726[address] Assigned Endocrinology Provider 03/13/22 09/07/23 Suzan Harry MD 420 [place] [address] Nephrology 06/30/23 Yasmeen Powers MD 500 [place] [address] Nephrology 10/24/23 Yasmeen Powers MD 500 [place] [address] Assigned Nephrology Provider 11/08/23 documented as of this encounter
--- OUTSIDE RECORDS SUMMARY | 2024-01-17 17:27 | XMS_ITS | Encounter Summary ---
Author Organization [place] Address [address] [place] [address] Care Team Providers Care Frozen Foods Manager Name Role Phone Rubén Boyle MD Primary Care Provider Pamela Blanco TRIM LINE WORKER Unavailable Pedro Segura MD Unavailable Freddy Craft MD Unavailable [phone] Abdifatah Van MD Unavailable Nicole Carranza TRIM LINE WORKER Unavailable [phone] Andressa Ruiz PA-C Unavailable [phone] Ashlyn Storm RN Unavailable [phone] Rubén Gunter [facility] Unavailable Andressa Ruiz-C Unavailable [phone] Suzan Harry MD Unavailable [phone] Yasmeen Powers MD Unavailable [phone] Yasmeen Powers MD Unavailable [phone] Encounter Details Date Type Department Care Team (Late st Contact Info) Description 09/16/2020 [facility] 909 [place] [address] Calli Hall RN Social History [...] documented as of this encounter Care Teams Frozen Foods Manager Relationship Specialty Start Date End Date Rubén Boyle MD PCP - General Family Practice 03/08/16 Pamela Blanco TRIM LINE WORKER [facility] [address] [place], [place] 380347 Referring Physician 07/13/16 Pedro Segura MD [facility] [address] [place], [place] 294497 Nephrology 10/03/16 Freddy Craft MD 516 [facility] [address] [place], [place] [address]125 Assigned Gastroenterology Provider 02/08/20 Abdifatah Van MD 717 [facility] [address] [place], [place] 622684 Assigned Nephrology Provider 07/13/20 11/07/23 Nicole Carranza NP 420 [facility] 508 [place], [place] 924965 Assigned Heart and Vascular Provider 01/09/22 Andressa Ruiz PA-C 420 [facility] 803 [place], [place] 566055 Physician Hand Rigger Endocrinology, Diabetes, and Metabolism 03/01/22 Ashlyn Storm, RN [facility] 711 [place], [place] 415914 Registered Nurse 03/03/22 09/15/22 Rubén Gunter [facility] [address] [place] [address] Assigned MTM Pharmacist 02/27/22 Andressa Ruiz PA-C 420 [facility] 803 [place], [place] 123565 Assigned Endocrinology Provider 03/13/22 09/07/23 Suzan Harry MD 420 [place] [address] Nephrology 06/30/23 Yasmeen Powers MD 500 [place] [address] Nephrology 10/24/23 Yasmeen Powers MD 500 [place] [address] Assigned Nephrology Provider 11/08/23 documented as of this encounter
--- OUTSIDE RECORDS SUMMARY | 2024-01-17 17:27 | XMS_ITS | Encounter Summary ---
Author Organization [place] Address [address] [place] [address] Care Team Providers Care Residential Support Worker Name Role Phone Rubén Boyle MD Primary Care Provider Pamela Blanco SENIOR MOBILE SOLUTIONS ARCHITECT Unavailable Pedro Segura MD Unavailable Freddy Craft MD Unavailable Abdifatah Van MD Unavailable Nicole Carranza SENIOR MOBILE SOLUTIONS ARCHITECT Unavailable [phone] Andressa Ruiz-C Unavailable Ashlyn Storm RN Unavailable Rubén Gunter [facility] Unavailable Andressa Ruiz-C Unavailable Suzan Harry MD Unavailable [phone] Yasmeen Powers MD Unavailable [phone] Yasmeen Powers MD Unavailable [phone] Encounter Details Date Type Department Care Team (Latest Contact Info) Description 05/13/2020 External Order Results [facility] 909 [place] [address] Outside, Provider History of liver [...] EXTERNAL LAB RESULTS Routine 05/13/2020 8:50 AM BACTERIOLOGIST SOIL TACROLIMUS BY TANDEM MASS SPECTROMETRY Routine 05/13/2020 8:50 AM BACTERIOLOGIST SOIL History of liver transplant (H) Status post kidney transplant Long-term use of immunosuppressant medication MAGNESIUM Routine 05/13/2020 8:50 AM BACTERIOLOGIST SOIL History of liver transplant (H) Status post kidney transplant Long-term use of immunosuppressant medication LIPID PROFILE Routine 05/13/2020 8:50 AM BACTERIOLOGIST SOIL Lipid screening Liver replaced by transplant (H) HEPATITIS C ANTIBODY Routine 05/13/2020 8:50 AM BACTERIOLOGIST SOIL HEPATITIS B SURFACE ANTIGEN Routine 05/13/2020 8:50 AM BACTERIOLOGIST SOIL HEPATITIS B CORE ANTIBODY Routine 05/13/2020 8:50 AM BACTERIOLOGIST SOIL DIFFERENTIAL Routine 05/13/2020 8:50 AM BACTERIOLOGIST SOIL BASIC METABOLIC PANEL Routine 05/13/2020 8:50 AM BACTERIOLOGIST SOIL History of liver transplant (H) Status post kidney transplant Long-term use of immunosuppressant medication CBC WITH PLATELETS Routine 05/13/2020 8: 50 AM BACTERIOLOGIST SOIL History of liver transplant (H) Status post kidney transplant Long-term use of immunosuppressant medication documented in this encounter Results * Tacrolimus level (05/13/2020 8:50 AM BACTERIOLOGIST SOIL) Tacrolimus(FK-5 06) (External) 4.6 See scan ng/mL LABDE SCAN Blood specimen (specimen) 05/13/2020 8:50 AM BACTERIOLOGIST SOIL Narrative BREEZE PFT - 05/18/2020 10:10 AM BACTERIOLOGIST SOIL Verified by Cruzito Marlow on 05/18/2020. Freddy Dumont MD LAB - BLOOD ORD ERABLES [facility] PFT LABDE SCAN * (ABNORMAL) Lipid Profile (05/13/2020 8:50 AM BACTERIOLOGIST SOIL) Cholesterol (External) 220(H) 90 - 200 MG/DL LABDE SCAN Triglycerides (External) 386(H) 40 - 197 MG/DL LABDE SCAN LDL-Cholesterol (External) 104(H) <100 mg/dl LABDE SCAN HDL Cholesterol (External) 39(L) >=40 mg/dL LABDE SCAN Blood specimen (specimen) 05/13/2020 8:50 AM BACTERIOLOGIST SOIL Narrative BREEZE PFT - 05/18/2020 10:10 AM BACTERIOLOGIST SOIL Verified by Cruzito Marlow on 05/18/2020. Freddy Dumont MD LAB - BLOOD ORD ERABLES [facility] PFT LABDE SCAN * Magnesium (05/13/2020 8:50 AM BACTERIOLOGIST SOIL) Magnesium (External) 1.9 1.5 - 2.6 MG/DL LABDE SCAN Blood specimen (specimen) 05/13/2020 8:50 AM BACTERIOLOGIST SOIL Narrative BREEZE PFT - 05/18/2020 10:10 AM BACTERIOLOGIST SOIL Verified by Cruzito Marlow on 05/18/2020. Freddy Dumont MD LAB - BLOOD ORD ERABLES [facility] PFT LABDE SCAN * (ABNORMAL) Basic metabolic panel (05/13/2020 8:50 AM BACTERIOLOGIST SOIL) Glucose (External) 316(H) 60 - 115 mg/dL [...] SCAN Blood specimen (specimen) 05/13/2020 8:50 AM BACTERIOLOGIST SOIL Narrative AMNAE PFT - 05/18/2020 10:10 AM BACTERIOLOGIST SOIL Verified by Cruzito Marlow on 05/18/2020. Freddy Dumont MD LAB - BLOOD ORD ERABLES Performing Organization Address [facility] Co de Phone Number SAMANTHA PFT LABDE SCAN * (ABNORMAL) WBC Differential (05/13/2020 8:50 AM BACTERIOLOGIST SOIL) % Neutrophils (External) 68.6 50.0 - 70.0 [...] SCAN Blood specimen (specimen) 05/13/2020 8:50 AM BACTERIOLOGIST SOIL Narrative BREEZE PFT - 05/18/2020 10:10 AM BACTERIOLOGIST SOIL Verified by Cruzito Marlow on 05/18/2020. Patient Reported LAB - BLOOD ORDERABL ES [facility] LABDE SCAN * (ABNORMAL) CBC with platelets (05/13/2020 8:50 AM BACTERIOLOGIST SOIL) WBC Count (External) 4.30(L) 5.00 - 10.00 [...] SCAN Blood specimen (specimen) 05/13/2020 8:50 AM BACTERIOLOGIST SOIL Narrative ERICKEZE PFT - 05/18/2020 10:10 AM BACTERIOLOGIST SOIL Verified by Cruzito Marlow on 05/18/2020. Freddy Dumont MD LAB - BLOOD ORD ERABLES BRETABITHAE PFT LABDE SCAN * Hepatitis C antibody (05/13/2020 8:50 AM BACTERIOLOGIST SOIL) Hepatitis C Antibody (External) Negative Negative LABDE SCAN Blood specimen (specimen) 05/13/2020 8:50 AM BACTERIOLOGIST SOIL Narrative BREEZE PFT - 05/15/2020 7:27 AM BACTERIOLOGIST SOIL Verified by Cruzito Marlow on 05/15/2020. Patient Reported LAB - BLOOD ORDERABL ES Performing Organization Address City/[facility]/ZIP Co de Phone Number BREEZE PFT LABDE SCAN * Hepatitis B core antibody (05/13/2020 8:50 AM BACTERIOLOGIST SOIL) Hepatitis B Core Anette (External) Negative Negative LABDE SCAN Blood specimen (specimen) 05/13/2020 8:50 AM BACTERIOLOGIST SOIL Narrative BREEZE PFT - 05/15/2020 7:27 AM BACTERIOLOGIST SOIL Verified by Cruzito Marlow on 05/15/2020. Patient Reported LAB - BLOOD ORDERABL ES Performing Organization Address [facility] Co de Phone Number BREEZE PFT LABDE SCAN * External Lab Results (05/13/2020 8:50 AM BACTERIOLOGIST SOIL) Scan Lab Results (External) Negative Negative LABDE SCAN Comment:HEP A AB IGM. 05/13/2020 8:50 AM BACTERIOLOGIST SOIL Narrative BREEZE PFT - 05/15/2020 7:27 AM BACTERIOLOGIST SOIL Verified by Cruzito Marlow on 05/15/2020. Patient Reported LABORATORY Performing Organization Address City/[facility] Co de Phone Number BREEZE PFT LABDE SCAN * Hepatitis B surface antigen (05/13/2020 8:50 AM BACTERIOLOGIST SOIL) Hep B Surface Agn (External) Negative Negative LABDE SCAN Blood specimen (specimen) 05/13/2020 8:50 AM BACTERIOLOGIST SOIL Narrative BREEZE PFT - 05/15/2020 7:27 AM BACTERIOLOGIST SOIL Verified by Cruzito Marlow on 05/15/2020. Patient [...] documented as of this encounter Care Teams Residential Support Worker Relationship Specialty Start Date End Date Rubén Boyle MD PCP - General Family Practice 03/08/16 Pamela Blanco NP [facility] [address] [place], [place] [address] Referring Physician 07/13/16 Pedro Segura MD [facility] [address] [place] [address] Nephrology 10/03/16 Freddy Craft MD 516 [facility] [address] [place] [address] Assigned Gastroenterology Provider 02/08/20 Abdifatah Van MD [address] [facility] [address] [place] [address] Assigned Nephrology Provider 07/13/20 11/07/23 Nicole Carranza NP 420 [facility] 508 [place] [address] Assigned Heart and Vascular Provider 01/09/22 Andressa Ruiz PA-C 420 [facility] 803 [place], [place] [address] Physician Conveyor Maintenance Mechanic Endocrinology, Diabetes, and Metabolism 03/01/22 Ashlyn Storm RN [facility] 711 [place] [address] Registered Nurse 03/03/22 09/15/22 Rubén Gunter [facility] [address] [place] [address] Assigned MTM Pharmacist 02/27/22 Andressa Ruiz PA-C [address] [address] Assigned Endocrinology Provider 03/13/22 09/07/23 Suzan Harry MD 420 [place], [place] [address]235 Nephrology 06/30/23 Yasmeen Powers MD 500 [place] [address] Nephrology 10/24/23 Yasmeen Powers MD 500 [place] [address] Assigned Nephrology Provider 11/08/23 documented as of this encounter
--- OUTSIDE RECORDS SUMMARY | 2024-01-17 17:27 | XMS_ITS | Encounter Summary ---
Author Organization [place] Address [address] [place] [address] Care Team Providers Care Narrow Fabric Calenderer Name Role Phone Rubén Boyle MD Primary Care Provider [phone] Pamela Blanco STRAP STITCHER Unavailable [phone] Pedro Segura MD Unavailable Freddy Craft MD Unavailable [phone] Abdifatah Van MD Unavailable Nicole Carranza STRAP STITCHER Unavailable [phone] Andressa Ruiz-C Unavailable [phone] Ashlyn Storm RN Unavailable Rubén Gunter [facility] Unavailable Andressa Ruiz-C Unavailable Suzan Harry MD Unavailable [phone] Yasmeen Powers MD Unavailable [phone] Yasmeen Powers MD Unavailable [phone] Encounter Details Date Type Department Care Team (Late st Contact Info) Description 10/22/2021 External Order Results [facility] [address] [place] [address] Outside, Provider Social History Tobacco Use Types [...] documented as of this encounter Care Teams Narrow Fabric Calenderer Relationship Specialty Start Date End Date Rubén Boyle MD PCP - General Family Practice 03/08/16 Pamela Blanco STRAP STITCHER [facility] [address] [place] [address] Referring Physician 07/13/16 Pedro Segura MD [facility] [address] [place] [address] Nephrology 10/03/16 Freddy Craft MD [facility] [place], [place] [address]215 Assigned Gastroenterology Provider 02/08/20 Abdifatah Van MD 717 [facility] [address] 353 [place], [place] 917384 Assigned Nephrology Provider 07/13/20 11/07/23 Nicole Carranza NP 420 [facility] 508 [place] [address] Assigned Heart and Vascular Provider 01/09/22 Andressa Ruiz PA-C 420 [facility] 803 [place] [address] Physician Manager Trade Marketing Endocrinology, Diabetes, and Metabolism 03/01/22 Ashlyn Storm, RN [facility] 711 [place] [address] Registered Nurse 03/03/22 09/15/22 Rubén Gunter [facility] [address] [place] [address] Assigned MTM Pharmacist 02/27/22 Andressa Ruiz PA-C 420 [facility] 803 [place] [address] Assigned Endocrinology Provider 03/13/22 09/07/23 Suzan Harry MD [address] [place] [address] Nephrology 06/30/23 Yasmeen Powers MD 500 [place] [address] Nephrology 10/24/23 Yasmeen Powers MD 500 [place] [address] Assigned Nephrology Provider 11/08/23 documented as of this encounter
--- OUTSIDE RECORDS SUMMARY | 2024-01-17 17:27 | XMS_ITS | Encounter Summary ---
Author Organization [place] Address [address] [place] [address] Care Team Providers Care Pediatric Dentist Name Role Phone Rubén Boyle MD Primary Care Provider Pamela Blanco STEWARD/STEWARDESS ECONOMY CLASS Unavailable Pedro Segura MD Unavailable [phone] Freddy Craft MD Unavailable [phone] Abdifatah Van MD Unavailable Nicole Carranza STEWARD/STEWARDESS ECONOMY CLASS Unavailable [phone] Andressa Ruiz PA-C Unavailable [phone] Ashlyn Storm RN Unavailable Rubén Gunter [facility] Unavailable Andressa Ruiz-C Unavailable Suzan Harry MD Unavailable [phone] Yasmeen Powers MD Unavailable [phone] Yasmeen Powers MD Unavailable [phone] Encounter Details Date Type Department Care Team (Late st Contact Info) Description 03/07/2020 [facility] 909 [place] [address] Calli Hall RN Social History [...] documented as of this encounter Care Teams Pediatric Dentist Relationship Specialty Start Date End Date Rubén Boyle MD PCP - General Family Practice 03/08/16 Pamela Blanco STEWARD/STEWARDESS ECONOMY CLASS [facility] [address] [place], [place] 302637 Referring Physician 07/13/[address] [facility] [address] [place], [place] 856867 Nephrology 10/03/16 Freddy Craft MD 516 [facility] PWB 2A [place], [place] 371675 Assigned Gastroenterology Provider 02/08/20 Abdifatah Van MD 717 [facility] SE [address] [place], [place] 735054 Assigned Nephrology Provider 07/13/20 11/07/23 Nicole Carranza NP 420 [facility] MMC 508 [place], [place] 724905 Assigned Heart and Vascular Provider 01/09/22 Andressa Ruiz PA-C 420 [facility] 803 [place], [place] 318185 Physician Compounder Flavorings Endocrinology, Diabetes, and Metabolism 03/01/22 Ashlyn Storm, RN [facility] 711 [place], [place] 823974 Registered Nurse 03/03/22 09/15/22 uRbén Gunter [facility] [address] [place] [address] Assigned MTM Pharmacist 02/27/22 Andressa Ruiz PA-C 420 [facility] 803 [place], [place] 657905 Assigned Endocrinology Provider 03/13/22 09/07/23 Suzan Harry MD 420 [place] [address] Nephrology 06/30/23 Yasmeen Powers MD 500 [place] [address] Nephrology 10/24/23 Yasmeen Powers MD 500 [place] [address] Assigned Nephrology Provider 11/08/23 documented as of this encounter
--- OUTSIDE RECORDS SUMMARY | 2024-01-17 17:27 | XMS_ITS | Encounter Summary ---
Author Organization [place] Address [address] [place] [address] Care Team Providers Care Kitchenhand Name Role Phone Rubén Boyle MD Primary Care Provider Pamela Blanco TOW DRIVER Unavailable Pedro Segura MD Unavailable [phone] Freddy Craft MD Unavailable Abdifatah Van MD Unavailable Nicole Carranza TOW DRIVER Unavailable [phone] Andressa Ruiz-C Unavailable [phone] Ashlyn Storm RN Unavailable Rubén Gunter [facility] Unavailable Andressa Ruiz-C Unavailable Suzan Harry MD Unavailable [phone] Yasmeen Powers MD Unavailable [phone] Yasmeen Powers MD Unavailable [phone] Encounter Details Date Type Department Care Team (Late st Contact Info) Description 06/26/2020 [facility] 909 [place] [address] Laurie Carmen LPN Social History [...] documented as of this encounter Care Teams Kitchenhand Relationship Specialty Start Date End Date Rubén Boyle MD PCP - General Family Practice 03/08/[address] [facility] [address] [place], [place] 210387 Referring Physician 07/13/[address] [facility] [address] [place], [place] 673377 Nephrology 10/03/16 Freddy Craft MD 516 [facility] PWB 2A [place], [place] [address]005 Assigned Gastroenterology Provider 02/08/20 Abdifatah Van MD 717 [facility] SE [address] 353 [place], [place] [address] Assigned Nephrology Provider 07/13/20 11/07/23 Nicole Carranza NP 420 [facility] MMC 508 [place], [place] 432425 Assigned Heart and Vascular Provider 01/09/22 Andressa Ruiz PA-C 420 [facility] 803 [place], [place] [address]775 Physician Senior Geologist Endocrinology, Diabetes, and Metabolism 03/01/22 Ashlyn Storm, RN [facility] 711 [place], [place] 245824 Registered Nurse 03/03/22 09/15/22 Rubén Gunter [facility] [address] [place] [address] Assigned MTM Pharmacist 02/27/22 Andressa Ruiz PA-C 420 [facility] 803 [place], [place] 632925 Assigned Endocrinology Provider 03/13/22 09/07/23 Suzan Harry MD 420 [place] [address] Nephrology 06/30/23 Yasmeen Powers MD 500 [place] [address] Nephrology 10/24/23 Yasmeen Powers MD 500 [place] [address] Assigned Nephrology Provider 11/08/23 documented as of this encounter
--- OUTSIDE RECORDS SUMMARY | 2024-01-17 17:27 | XMS_ITS | Encounter Summary ---
Author Organization [place] Address [address] [place] [address] Care Team Providers Care Beverage Distiller Name Role Phone Rubén Boyle MD Primary Care Provider Pamela Blanco BASKET GRADER Unavailable [phone] Pedro Segura MD Unavailable [phone] Freddy Craft MD Unavailable Abdifatah Van MD Unavailable Nicole Carranza BASKET GRADER Unavailable [phone] Andressa Ruiz-C Unavailable Ashlyn Storm RN Unavailable [phone] Rubén Gunter [facility] Unavailable Andressa Ruiz-C Unavailable Suzan Harry MD Unavailable [phone] Yasmeen Powesr MD Unavailable [phone] Yasmeen Powers MD Unavailable [phone] Encounter Details Date Type Department Care Team (Late st Contact Info) Description 08/11/2021 External Order Results [facility] [address] [place] [address] Outside, Provider Lipid screening; Liver replaced by [...] [place]/ZIP Co de Phone Number [place] PFT NON-INTERFACED [...] - BLOOD ORD ERABLES Performing Organization Address [facility] Co de Phone Number B[place]ZE [...] - BLOOD ORD ERABLES Performing Organization Address City/State/[facility] Co de Phone Number [place] PFT [...] documented as of this encounter Care Teams Beverage Distiller Relationship Specialty Start Date End Date Rubén Boyle MD PCP - General Family Practice 03/08/16 Pamela Blanco NP [facility] [address] [place], [place] 311357 Referring Physician 07/13/16 Pedro Segura MD [facility] [address] [place], [place] 981187 Nephrology 10/03/16 Freddy Craft MD 516 [facility] 2[facility] [place], [place] 884415 Assigned Gastroenterology Provider 02/08/20 Abdifatah Van MD [address] [facility] [address] [place] [address] Assigned Nephrology Provider 07/13/20 11/07/23 Nicole Carranza NP 420 [facility] MMC 508 [place], [place] 459515 Assigned Heart and Vascular Provider 01/09/22 Andressa Ruiz PA-C 420 [facility] 803 [place] [address] Physician Information Specialist Endocrinology, Diabetes, and Metabolism 03/01/22 Ashlyn Storm, RN [facility] 711 [place] [address] Registered Nurse 03/03/22 09/15/22 Rubén Gunter [facility] [address] [place] [address] Assigned MTM Pharmacist 02/27/22 Andressa Ruiz PA-C 420 [facility] 803 [place] [address] Assigned Endocrinology Provider 03/13/22 09/07/23 Suzan Harry MD 420 [place] [address] Nephrology 06/30/23 Yasmeen Powers MD 500 [place] [address] Nephrology 10/24/23 Yasmeen Powers MD 500 [place] [address] Assigned Nephrology Provider 11/08/23 documented as of this encounter
--- OUTSIDE RECORDS SUMMARY | 2024-01-17 17:27 | XMS_ITS | Encounter Summary ---
Author Organization [place] Address [address] [place] [address] Care Team Providers Care Dam Operator Name Role Phone Rubén Boyle MD Primary Care Provider Pamela Blanco FACTORY SUPERVISOR Unavailable Pedro Segura MD Unavailable Freddy Craft MD Unavailable Abdifatah Van MD Unavailable Nicole Carranza FACTORY SUPERVISOR Unavailable [phone] Andressa Ruiz-C Unavailable [phone] Ashlyn Storm RN Unavailable Rubén Gunter [facility] Unavailable Andressa Ruiz-C Unavailable Suzan Harry MD Unavailable [phone] Yasmeen Powers MD Unavailable [phone] Yasmeen Pwoers MD Unavailable [phone] Encounter Details Date Type Department Care Team (Late st Contact Info) Description 10/23/2021 External Order Results [facility] [address] [place] [address] Outside, Provider Social History Tobacco Use Types [...] documented as of this encounter Care Teams Dam Operator Relationship Specialty Start Date End Date Rubén Boyle MD PCP - General Family Practice 03/08/16 Pamela Blanco FACTORY SUPERVISOR [facility] [address] [place] [address] Referring Physician 07/13/16 Pedro Segura MD [facility] [address] [place] [address] Nephrology 10/03/16 Freddy Craft MD 516 [facility] 2[facility] [place], [place] 481415 Assigned Gastroenterology Provider 02/08/20 Abdifatah Van MD 717 [facility] VICK 353 [place], [place] [address]794 Assigned Nephrology Provider 07/13/20 11/07/23 Nicole Carranza NP 420 [facility] 508 [place] [address] Assigned Heart and Vascular Provider 01/09/22 Andressa Ruiz PA-C 420 [facility] 803 [place] [address] Physician Cardiac Rehab Nurse Endocrinology, Diabetes, and Metabolism 03/01/22 Ashlyn Storm, RN [facility] 711 [place] [address] Registered Nurse 03/03/22 09/15/22 Rubén Gunter [facility] [address] [place] [address] Assigned MTM Pharmacist 02/27/22 Andressa Ruiz PA-C 420 [facility] 803 [place] [address] Assigned Endocrinology Provider 03/13/22 09/07/23 Suzan Harry MD [address] [place] [address] Nephrology 06/30/23 Yasmeen Powers MD 500 [place] [address] Nephrology 10/24/23 Yasmeen Powers MD 500 [place] [address] Assigned Nephrology Provider 11/08/23 documented as of this encounter
--- OUTSIDE RECORDS SUMMARY | 2024-01-17 17:27 | XMS_ITS | Encounter Summary ---
Author Organization [place] Address [address] [place] [address] Care Team Providers Care Reading Interventionist Name Role Phone Rubén Boyle MD Primary Care Provider Pamela Blanco FOOD AND BEVERAGE OPERATIONS MANAGER Unavailable Pedro Segura MD Unavailable Freddy Craft MD Unavailable Abdifatah Van MD Unavailable Nicole Carranza FOOD AND BEVERAGE OPERATIONS MANAGER Unavailable [phone] Andressa Ruiz-C Unavailable Ashlyn Storm RN Unavailable Rubén Gunter [facility] Unavailable Andressa Ruiz-C Unavailable [phone] Suzan Harry MD Unavailable [phone] Yasmeen Powers MD Unavailable [phone] Yasmeen Powers MD Unavailable [phone] Encounter Details Date Type Department Care Team (Late st Contact Info) Description 09/24/2020 External Order Results [facility] 909 [place] [address] Outside, Provider Alcohol abuse, in [...] documented as of this encounter Care Teams Reading Interventionist Relationship Specialty Start Date End Date Rubén Boyle MD PCP - General Family Practice 03/08/16 Pamela Blanco FOOD AND BEVERAGE OPERATIONS MANAGER [facility] [address] [place] [address] Referring Physician 07/13/16 Pedro Segura MD [facility] [address] [place], [place] 195297 Nephrology 10/03/16 Freddy Craft MD 516 [facility] 2A [place], [place] 27[address] Assigned Gastroenterology Provider 02/08/20 Abdifatah Van MD 717 [facility] VICK 353 [place], [place] [address]414 Assigned Nephrology Provider 07/13/20 11/07/23 Nicole Carranza NP 420 [facility] 508 [place], [place] [address]85 Assigned Heart and Vascular Provider 01/09/22 Andressa Ruiz PA-C 420 [facility] 803 [place], [place] [address] Physician Bellman Captain Endocrinology, Diabetes, and Metabolism 03/01/22 Ashlyn Storm, RN [facility] 711 [place] [address] Registered Nurse 03/03/22 09/15/22 Rubén Gunter [facility] 909 [place], [place] 22262455 Assigned MTM Pharmacist 02/27/22 Andressa Ruiz PA-C 420 [facility] 803 [place], [place] [address] Assigned Endocrinology Provider 03/13/22 09/07/23 Suzan Harry MD 420 [place], [place] 97748455 Nephrology 06/30/23 Yasmeen Powers MD 500 [place], [place] 999795 Nephrology 10/24/23 Yasmeen Powers MD 500 [place], [place] 445285 Assigned Nephrology Provider 11/08/23 documented as of this encounter
--- OUTSIDE RECORDS SUMMARY | 2024-01-17 17:27 | XMS_ITS | Encounter Summary ---
Author Organization [place] Address [address] [place] [address]. [place] [address] Care Team Providers Care Preload Supervisor Name Role Phone Rubén Boyle MD Primary Care Provider Pameal Blanco NUT FORMER Unavailable Pedro Segura MD Unavailable Freddy Craft MD Unavailable Abdifatah Van MD Unavailable Nicole Carranza NUT FORMER Unavailable Andressa Ruiz-C Unavailable Ashlyn Storm RN Unavailable [phone] Rubén Gunter [facility] Unavailable Andressa Ruiz-C Unavailable Suzan Harry MD Unavailable [phone] Yasmeen Powers MD Unavailable Yasmeen Powers MD Unavailable [phone] Encounter Details Date Type Department Care Team (Late st Contact Info) Description 10/02/2020 [facility] [address] [place] [address] Lilliam Collier Social History Tobacco Use [...] documented as of this encounter Care Teams Preload Supervisor Relationship Specialty Start Date End Date Rubén Boyle MD PCP - General Family Practice 03/08/16 Pamela Blanco NP [facility] [address] [place], [place] 373027 Referring Physician 07/13/16 Pedro Segura MD [facility] [address] [place], [place] 750737 Nephrology 10/03/16 Freddy Craft MD 516 [facility] 2A [place], [place] 535495 Assigned Gastroenterology Provider 02/08/20 Abdifatah Van MD 717 [facility] SE [address] 353 [place] [address] Assigned Nephrology Provider 07/13/20 11/07/23 Nicole Carranza NP 420 [facility] 508 [place] [address] Assigned Heart and Vascular Provider 01/09/22 Andressa Ruiz PA-C 420 [facility] 803 [place] [address] Physician Hooker On Endocrinology, Diabetes, and Metabolism 03/01/22 Ashlyn Storm, RN [facility] 711 [place] [address] Registered Nurse 03/03/22 09/15/22 Rubén Gunter [facility] [address] [place] [address] Assigned MTM Pharmacist 02/27/22 Andressa Ruiz PA-C 420 [facility] 803 [place] [address] Assigned Endocrinology Provider 03/13/22 09/07/23 Suzan Harry MD 420 [place] [address] Nephrology 06/30/23 Yasmeen Powers MD 500 [place] [address] Nephrology 10/24/23 Yasmeen Powers MD 500 [place] [address] Assigned Nephrology Provider 11/08/23 documented as of this encounter
--- OUTSIDE RECORDS SUMMARY | 2024-01-17 17:27 | XMS_ITS | Encounter Summary ---
Author Organization [place] Address [address] [place] [address] Care Team Providers Care Cafe Attendant Name Role Phone Rubén Boyle MD Primary Care Provider Pamela Blanco ANNEALING FURNACE OPERATOR Unavailable Pedro Segura MD Unavailable Freddy Craft MD Unavailable [phone] Abdifatah Van MD Unavailable Nicole Carranza ANNEALING FURNACE OPERATOR Unavailable [phone] Andressa Ruiz-C Unavailable Ashlyn Storm RN Unavailable Rubén Gunter [facility] Unavailable Andressa Ruiz-C Unavailable Suzan Harry MD Unavailable [phone] Yasmeen Powers MD Unavailable [phone] Yasmeen Powers MD Unavailable [phone] Encounter Details Date Type Department Care Team (Late st Contact Info) Description 09/14/2021 External Order Results [facility] [address] [place] [address] Outside, Provider Status post kidney transplant; History [...] MD LAB - BLOOD ORDERABL ES [facility] NON-INTERFACED (ONBASE SCANS) * (ABNORMAL) Basic [...] as of this encounter Care Teams Cafe Attendant Relationship Specialty Start Date End Date Rubén Boyle MD PCP - General Family Practice 03/08/[address] [facility] [address] [place], [place] 77[address] Referring Physician 07/13/[address] [facility] [address] [place] [address] Nephrology 10/03/16 Freddy Craft MD 516 [facility] PWB 2A [place], [place] 565225 Assigned Gastroenterology Provider 02/08/20 Abdifatah Van MD [address] [address] [place] [address] Assigned Nephrology Provider 07/13/20 11/07/23 Nicole Carranza NP 420 [facility] 508 [place] [address] Assigned Heart and Vascular Provider 01/09/22 Andressa Ruiz PA-C 420 [facility] 803 [place], [place] 6[address]125 Physician Rehabilitation Consultant Endocrinology, Diabetes, and Metabolism 03/01/22 Ashlyn Storm, RN [facility] 711 [place], [place] 231094 Registered Nurse 03/03/22 09/15/22 Rubén Gunter [facility] 909 [place], [place] 184775 Assigned MTM Pharmacist 02/27/22 Andressa Ruiz PA-C 420 [facility] 803 [place], [place] 446415 Assigned Endocrinology Provider 03/13/22 09/07/23 Suzan Harry MD 420 [place] [address] Nephrology 06/30/23 Yasmeen Powers MD 500 [place], [place] 827495 Nephrology 10/24/23 Yasmeen Powers MD 500 [place] [address] Assigned Nephrology Provider 11/08/23 documented as of this encounter
--- OUTSIDE RECORDS SUMMARY | 2024-01-17 17:27 | XMS_ITS | Encounter Summary ---
Author Organization [place] Address [address] [place] [address] Care Team Providers Care Show Girl Name Role Phone Rubén Boyle MD Primary Care Provider Pamela Blanco BAKING ASSISTANT Unavailable Pedro Segura MD Unavailable [phone] Freddy Craft MD Unavailable [phone] Abdifatah Van MD Unavailable Nicole Carranza BAKING ASSISTANT Unavailable [phone] Andressa Ruiz PA-C Unavailable Ashlyn Storm RN Unavailable [phone] Rubén Gunter [facility] Unavailable Andressa Ruiz-C Unavailable Suzan Harry MD Unavailable [phone] Yasmeen Powers MD Unavailable [phone] Yasmeen Powers MD Unavailable [phone] Encounter Details Date Type Department Care Team (Late st Contact Info) Description 04/29/2020 [facility] 909 [place] [address] Calli Hall RN Social History [...] documented as of this encounter Care Teams Show Girl Relationship Specialty Start Date End Date Rubén Boyle MD PCP - General Family Practice 03/08/16 Pamela Blanco BAKING ASSISTANT [facility] [address] [place], [place] 852187 Referring Physician 07/13/16 Pedro Segura MD [facility] [address] [place], [place] 437397 Nephrology 10/03/16 Freddy Craft MD 516 [facility] PWB 2A [place], [place] [address] Assigned Gastroenterology Provider 02/08/20 Abdifatah Van MD 717 [facility] [address] [place], [place] 179934 Assigned Nephrology Provider 07/13/20 11/07/23 Nicole Carranza NP 420 [facility] MMC 508 [place], [place] 399955 Assigned Heart and Vascular Provider 01/09/22 Andressa Ruiz PA-C 420 [facility] 803 [place], [place] 48[address]55 Physician Clinical Research Analyst Endocrinology, Diabetes, and Metabolism 03/01/22 Ashlyn Storm, RN [facility] 711 [place], [place] 601584 Registered Nurse 03/03/22 09/15/22 Rubén Gunter [facility] [address] [place] [address] Assigned MTM Pharmacist 02/27/22 Andressa Ruiz PA-C 420 [facility] 803 [place], [place] 448315 Assigned Endocrinology Provider 03/13/22 09/07/23 Suzan Harry MD 420 [place] [address] Nephrology 06/30/23 Yasmeen Powers MD 500 [place] [address] Nephrology 10/24/23 Yasmeen Powers MD 500 [place] [address] Assigned Nephrology Provider 11/08/23 documented as of this encounter
--- OUTSIDE RECORDS SUMMARY | 2024-01-17 17:27 | XMS_ITS | Encounter Summary ---
Author Organization [facility] Address [address] [place] [address] Care Team Providers Care Refrigeration Repair Supervisor Name Role Phone Rubén Boyle MD Primary Care Provider Pamela Blanco MECHANISM INSPECTOR Unavailable [phone] Pedro Segura MD Unavailable Freddy Craft MD Unavailable [phone] Abdifatah Van MD Unavailable Nicole Carranza MECHANISM INSPECTOR Unavailable [phone] Andressa Ruiz PA-C Unavailable Ashlyn Storm RN Unavailable Rubén Gunter [facility] Unavailable Andressa Ruiz-C Unavailable Suzan Harry MD Unavailable [phone] Yasmeen Powers MD Unavailable [phone] Yasmeen Powers MD Unavailable [phone] Encounter Details Date Type Department Care Team (Late st Contact Info) Description 12/04/2020 [facility] 9[address] [place] [address] Calli Hall RN Social History [...] documented as of this encounter Care Teams Refrigeration Repair Supervisor Relationship Specialty Start Date End Date Rubén Boyle MD PCP - General Family Practice 03/08/16 Pamela Blanco MECHANISM INSPECTOR [facility] [address] [place], [place] 429597 Referring Physician 07/13/16 Pedro Segura MD [facility] [address] [place], [place] 910587 Nephrology 10/03/16 Freddy Craft MD 516 [facility] [address] [place], [place] 594735 Assigned Gastroenterology Provider 02/08/20 Abdifatah Van MD 717 [facility] [address] [place], [place] 687914 Assigned Nephrology Provider 07/13/20 11/07/23 Nicole Carranza NP 420 [facility] 508 [place], [place] 916465 Assigned Heart and Vascular Provider 01/09/22 Andressa Ruiz PA-C 420 [facility] 803 [place], [place] 181045 Physician Shipping Support Clerk Endocrinology, Diabetes, and Metabolism 03/01/22 Ashlyn Storm, RN [facility] 711 [place], [place] 067384 Registered Nurse 03/03/22 09/15/22 Rubén Gunter [facility] [address] [place] [address] Assigned MTM Pharmacist 02/27/22 Andressa Ruiz PA-C 420 [facility] 803 [place], [place] 477375 Assigned Endocrinology Provider 03/13/22 09/07/23 Suzan Harry MD 420 [place] [address] Nephrology 06/30/23 Yasmeen Powers MD 500 [place] [address] Nephrology 10/24/23 Yasmeen Powers MD 500 [place] [address] Assigned Nephrology Provider 11/08/23 documented as of this encounter
--- OUTSIDE RECORDS SUMMARY | 2024-01-17 17:27 | XMS_ITS | Encounter Summary ---
Author Organization [facility] Address [address] [place] [address] Care Team Providers Care Critical Care Nurse Practitioner Name Role Phone Rubén Boyle MD Primary Care Provider Pamela Blanco DESIGNER/WRITER Unavailable [phone] Pedro Segura MD Unavailable Freddy Craft MD Unavailable [phone] Abdifatah Van MD Unavailable Nicole Carranza DESIGNER/WRITER Unavailable [phone] Andressa Ruiz-C Unavailable Ashlyn Storm RN Unavailable Rubén Gunter [facility] Unavailable Andressa Ruiz-C Unavailable Suzan Harry MD Unavailable [phone] Yasmeen Powers MD Unavailable [phone] Yasmeen Powers MD Unavailable [phone] Encounter Details Date Type Department Care Team (Late st Contact Info) Description 08/06/2020 [facility] 9[address] [place] [address] Lashanda Hsieh, [facility] [...] documented as of this encounter Care Teams Critical Care Nurse Practitioner Relationship Specialty Start Date End Date Rubén Boyle MD PCP - General Family Practice 03/08/16 Pamela Blanco NP [facility] [address] [place], [place] 118317 Referring Physician 07/13/16 Pedro Segura MD [facility] [address] [place], [place] 523627 Nephrology 10/03/16 Freddy Craft MD [address] [place] [address] 614035 Assigned Gastroenterology Provider 02/08/20 Abdifatah Van MD 717 [facility] [address] [place] [address] Assigned Nephrology Provider 07/13/20 11/07/23 Nicole Carranza NP 420 [facility] 508 [place], [place] 18[address]55 Assigned Heart and Vascular Provider 01/09/22 Andressa Ruiz PA-C 420 [facility] 803 [place], [place] 0[address]15 Physician Launch Commander [employer] Endocrinology, Diabetes, and Metabolism 03/01/22 Ashlyn Storm RN [facility] 711 [place], [place] 399894 Registered Nurse 03/03/22 09/15/22 Rubén Gunter [facility] 909 [place], [place] 492315 Assigned MTM Pharmacist 02/27/22 Andressa Ruiz PA-C 420 [facility] 803 [place], [place] 078215 Assigned Endocrinology Provider 03/13/22 09/07/23 Suzan Harry MD 420 [place], [place] 394485 Nephrology 06/30/23 Yasmeen Powers MD 500 [place], [place] 617795 Nephrology 10/24/23 Yasmeen Powers MD 500 [place] [address] Assigned Nephrology Provider 11/08/23 documented as of this encounter
[2024-01-17 17:28] LABS: Anion Gap 20 mEq/L (7-15); Blood Urea Nitrogen* 67 mg/dL (7-30); Calcium* 9.4 mg/dL (8.4-10.6); Carbon Dioxide* 10 mmol/L (20-32); Glucose* 194 mg/dL (60-115)
--- OUTSIDE RECORDS SUMMARY | 2024-01-17 17:28 | XMS_ITS | Encounter Summary ---
Author Organization [place] Address [address] [place] [address] Care Team Providers Care Clinical Laboratory Service Teacher Name Role Phone Rubén Boyle MD Primary Care Provider Pamela Blanco CONVERTING TECHNICIAN Unavailable Pedro Segura MD Unavailable [phone] Freddy Craft MD Unavailable [phone] Abdifatah Van MD Unavailable Nicole Carranza CONVERTING TECHNICIAN Unavailable [phone] Andressa Ruiz-C Unavailable [phone] Ashlyn Storm RN Unavailable Rubén Gunter [facility] Unavailable Andressa Ruiz-C Unavailable Suzan Harry MD Unavailable [phone] Yasmeen Powers MD Unavailable [phone] Yasmeen Powers MD Unavailable [phone] Encounter Details Date Type Department Care Team (Latest Contact Info) Description 02/05/2020 External Order Results [facility] Trans[facility] 909 [place] [address] Outside, Provider History of liver [...] specimen (specimen) 02/05/2020 12:00 PM CDT [facility]ative [facility] - 02/06/2020 12:16 PM CDT Verified by Yamil Santo on 02/06/2020. Patient Reported LAB - BLOOD ORDERABL ES [facility] PFT LABDE SCAN * (ABNORMAL) Basic metabolic panel (02/05/2020 12:00 PM CDT) Pathologist [facility] Calcium (External) 8.9 8.4 - 10.6 mg/dL [...] (specimen) 02/05/2020 12:00 PM CDT Narrative [facility] PFT - 02/06/2020 12:16 PM CDT Verified [...] as of this encounter Care Teams Clinical Laboratory Service Teacher Relationship Specialty Start Date End Date Rubén Boyle MD PCP - General Family Practice 03/08/16 Pamela Blanco NP [facility] [address] [place], [place] 17[address]17 Referring Physician 07/13/16 Pedro Segura MD [facility] [address] [place], [place] 159497 Nephrology 10/03/16 Freddy Craft MD [address] [place] [address] 796575 Assigned Gastroenterology Provider 02/08/20 Abdifatah Van MD 717 [facility] [address] [place] [address] Assigned Nephrology Provider 07/13/20 11/07/23 Nicole Carranza NP 420 [facility] 508 [place], [place] 370505 Assigned Heart and Vascular Provider 01/09/22 Andressa Ruiz PA-C 420 [facility] 803 [place], [place] 08[address]25 Physician Bilingual Middle School Teacher Endocrinology, Diabetes, and Metabolism 03/01/22 Ashlyn Storm RN [facility] 711 [place], [place] [address] Registered Nurse 03/03/22 09/15/22 [facility] 909 [place], [place] [address] Assigned MTM Pharmacist 02/27/22 Andressa Ruiz PA-C 420 [facility] 803 [place], [place] [address]195 Assigned Endocrinology Provider 03/13/22 09/07/23 Suzan Harry MD 420 [place], [place] 870565 Nephrology 06/30/23 Yasmeen Powers MD 500 [place] [address] Nephrology 10/24/23 Yasmeen Powers MD 500 [place] [address] Assigned Nephrology Provider 11/08/23 documented as of this encounter
--- OUTSIDE RECORDS SUMMARY | 2024-01-17 17:28 | XMS_ITS | Encounter Summary ---
Author Organization [place] Address [address] [place] [address] Care Team Providers Care Automobile Assembler Name Role Phone Rubén Boyle MD Primary Care Provider [phone] Pamela Blanco INTERNATIONAL NURSE Unavailable Pedro Segura MD Unavailable [phone] Freddy Craft MD Unavailable Abdifatah Van MD Unavailable Nicole Carranza INTERNATIONAL NURSE Unavailable [phone] Andressa Ruiz-C Unavailable [phone] Ashlyn Storm RN Unavailable Rubén Gunter [facility] Unavailable Andressa Ruiz-C Unavailable Suzan Harry MD Unavailable [phone] Yasmeen Powers MD Unavailable [phone] Yasmeen Powers MD Unavailable [phone] Encounter Details Date Type Department Care Team (Latest Contact Info) Description 05/03/2018 External Order Results [facility] Transplant [facility] [address] [place] [address] History of liver transplant (H); [...] TANDEM MASS SPECTROMETRY Routine 05/03/2018 8:43 AM CHUTE OPERATOR History of liver transplant (H) Status post kidney transplant Long-term use of immunosuppressant medication MAGNESIUM Routine 05/03/2018 8:43 AM CHUTE OPERATOR History of liver transplant (H) Status post kidney transplant Long-term use of immunosuppressant medication HEPATIC FUNCTION PANEL Routine 05/03/2018 8:43 AM CHUTE OPERATOR History of liver transplant (H) Status post kidney transplant Long-term use of immunosuppressant medication BASIC METABOLIC PANEL Routine 05/03/2018 8:43 AM CHUTE OPERATOR History of liver transplant (H) Status post kidney transplant Long-term use of immunosuppressant medication CBC WITH PLATELETS Routine 05/03/2018 8: 43 AM CHUTE OPERATOR History of liver transplant (H) Status post kidney transplant Long-term use of immunosuppressant medication documented in this encounter Results * Tacrolimus level (05/03/2018 8:43 AM CHUTE OPERATOR) Tacrolimus(FK-5 06) (External) 3.9 ng/mL LABDE SCAN Tacrolimus Last Dose (External) Not given LABDE SCAN Blood specimen (specimen) 05/03/2018 8:43 AM CHUTE OPERATOR Narrative SAM[facility]THA PFT - 05/04/2018 5:18 PM CHUTE OPERATOR Verified by Rhiannon Cain on 05/04/2018. Freddy Dumont MD LAB - BLOOD ORD ERALASHAE Performing Organization Address City/[facility]/ZIP Co de Phone Number [facility] PFT LABDE SCAN * (ABNORMAL) CBC with platelets (05/03/2018 8:43 AM CHUTE OPERATOR) WBC Count (External) 4.0(L) 4.5 - 11.0 [...] SCAN Blood specimen (specimen) 05/03/2018 8:43 AM CHUTE OPERATOR Narrative [facility] PFT - 05/04/2018 5:17 AM CHUTE OPERATOR Verified by Cruzito Marlow on 05/04/2018. Freddy Dumont MD LAB - BLOOD ORD ERALASHAE Performing Organization Address [facility] Co de Phone Number [facility] PFT LABDE SCAN * Magnesium (05/03/2018 8:43 AM CHUTE OPERATOR) Magnesium (External) 2.1 1.6 - 2.6 mg/dL LABDE SCAN Blood specimen (specimen) 05/03/2018 8:43 AM CHUTE OPERATOR Narrative [facility] PFT - 05/04/2018 5:17 AM CHUTE OPERATOR Verified by Cruzito Marlow on 05/04/2018. Freddy Dumont MD LAB - BLOOD ORD ERALASHAE [facility] PFT LABDE SCAN * (ABNORMAL) Hepatic panel (05/03/2018 8:43 AM CHUTE OPERATOR) Albumin (External) 4.1 3.2 - 4.6 g/dL [...] SCAN Blood specimen (specimen) 05/03/2018 8:43 AM CHUTE OPERATOR Narrative SAMANTHA PFT - 05/04/2018 5:17 AM CHUTE OPERATOR Verified by Cruzito Marlow on 05/04/2018. Freddy Dumont MD LAB - BLOOD ORD ERABLES SAM[facility]THA PFT LABDE SCAN * (ABNORMAL) Basic metabolic panel (05/03/2018 8:43 AM CHUTE OPERATOR) Pathologist [facility] Sodium (External) 137 135 - 145 mmol/L [...] SCAN Blood specimen (specimen) 05/03/2018 8:43 AM CHUTE OPERATOR Narrative SAMANTHA PFT - 05/04/2018 5:17 AM CHUTE OPERATOR Verified by Cruzito Marlow on 05/04/2018. Freddy [...] documented as of this encounter Care Teams Automobile Assembler Relationship Specialty Start Date End Date Rubén Boyle MD PCP - General Family Practice 03/08/16 Pamela Blanco NP [facility] [address] [place], [place] [address] Referring Physician 07/13/16 Pedro Segura MD [facility] [address] [place] [address] Nephrology 10/03/16 Freddy Craft MD [address] [facility] [address] [place] [address] Assigned Gastroenterology Provider 02/08/20 Abdifatah Van MD [address] [place] [address] Assigned Nephrology Provider 07/13/20 11/07/23 Nicole Carranza NP 420 [facility] 508 [place] [address] Assigned Heart and Vascular Provider 01/09/22 Andressa Ruiz PA-C 420 [facility] 803 [place], [place] 0[address]85 Physician Professional Wrestler Endocrinology, Diabetes, and Metabolism 03/01/22 Ashlyn Storm RN [facility] 711 [place], [place] [address]24 Registered Nurse 03/03/22 09/15/22 Rubén Gunter [facility] [address] [place] [address] 840675 Assigned MTM Pharmacist 02/27/22 Andressa Ruiz PA-C [address] [place] [address] 803 [place], [place] 955375 Assigned Endocrinology Provider 03/13/22 09/07/23 Suzan Harry MD [address] [place] [address] Nephrology 06/30/23 Yasmeen Powers MD 500 [place], [place] 689875 Nephrology 10/24/23 Yasmeen Powers MD 500 [place] [address] Assigned Nephrology Provider 11/08/23 documented as of this encounter
--- OUTSIDE RECORDS SUMMARY | 2024-01-17 17:28 | XMS_ITS | Encounter Summary ---
Author Organization [facility] Address [address] [place] [address] Care Team Providers Care Mumps Developer Name Role Phone Rubén Boyle MD Primary Care Provider Pamela Blanco DIRECTOR OF CORPORATE STRATEGY Unavailable Pedro Segura MD Unavailable Freddy Craft MD Unavailable Abdifatah Van MD Unavailable Nicole Carranza DIRECTOR OF CORPORATE STRATEGY Unavailable [phone] Andressa Ruiz-C Unavailable Ashlyn Storm RN Unavailable [phone] Rubén Gunter [facility] Unavailable Andressa Ruiz-C Unavailable Suzan Harry MD Unavailable [phone] Yasmeen Powers MD Unavailable [phone] Yasmeen Powers MD Unavailable [phone] Encounter Details Date Type Department Care Team (Latest Contact Info) Description 03/16/2018 External Order Results [facility] Transplant Clinic 9[address] [place], [place] [...] REFLEX TO MICRO Routine 03/16/2018 9:59 AM DIRECTOR OF MATH History of liver transplant (H) Status post kidney transplant Long-term use of immunosuppressant medication MAGNESIUM Routine 03/16/2018 9:14 AM DIRECTOR OF MATH History of liver transplant (H) Status post kidney transplant Long-term use of immunosuppressant medication LIPID PROFILE Routine 03/16/2018 9:14 AM DIRECTOR OF MATH HEPATIC FUNCTION PANEL Routine 03/16/2018 9:14 AM DIRECTOR OF MATH History of liver transplant (H) Status post kidney transplant Long-term use of immunosuppressant medication BASIC METABOLIC PANEL Routine 03/16/2018 9:14 AM DIRECTOR OF MATH History of liver transplant (H) Status post kidney transplant Long-term use of immunosuppressant medication CBC WITH PLATELETS Routine 03/16/2018 9: 14 AM DIRECTOR OF MATH History of liver transplant (H) Status post kidney transplant Long-term use of immunosuppressant medication documented in this encounter Results * *UA reflex to Microscopic (03/16/2018 9:59 AM DIRECTOR OF MATH) Color Urine (External) YEL Yellow LABDE SCAN Appearance Urine (External) Clear Clear LABDE SCAN Specific [place] Urine (External) 1.015 1.010 - 1.025 LABDE [...] SCAN Urine specimen (specimen) 03/16/2018 9:59 AM DIRECTOR OF MATH Narrative SAMANTHA PFT - 03/16/2018 1:39 PM DIRECTOR OF MATH Verified by Rhinanon Cain on 03/16/2018. Freddy Dumont MD LAB - URINE ORD ERABLES Performing Organization Address City/[facility]/ZIP Co de Phone Number AMNAE PFT LABDE SCAN * (ABNORMAL) Lipid Profile (03/16/2018 9:14 AM DIRECTOR OF MATH) Cholesterol (External) 197 100 - 199 mg/dL LABDE SCAN Triglycerides (External) 156(H) <150 mg/dL LABDE SCAN HDL Cholesterol (External) 38(L) >40 mg/dL LABDE SCAN LDL-Cholesterol (External) 128 <=130 mg/dL LABDE SCAN Blood specimen (specimen) 03/16/2018 9:14 AM DIRECTOR OF MATH Narrative ERICKKayli PFT - 03/16/2018 1:39 PM DIRECTOR OF MATH Verified by Rhiannon Cain on 03/16/2018. Patient Reported LAB - BLOOD ORDERABL ES Performing Organization Address City/[facility]/ZIP Co de Phone Number AMNAE PFT LABDE SCAN * (ABNORMAL) Basic metabolic panel (03/16/2018 9:14 AM DIRECTOR OF MATH) Sodium (External) 138 135 - 145 mmol/L [...] SCAN Blood specimen (specimen) 03/16/2018 9:14 AM DIRECTOR OF MATH Narrative AMNAE PFT - 03/16/2018 1:39 PM DIRECTOR OF MATH Verified by Rhiannon Cain on 03/16/2018. Freddy Dumont MD LAB - BLOOD ORD ERABLES SAMANTHA PFT LABDE SCAN * (ABNORMAL) CBC with platelets (03/16/2018 9:14 AM DIRECTOR OF MATH) WBC Count (External) 3.5(L) 4.5 - 11.0 [...] SCAN Blood specimen (specimen) 03/16/2018 9:14 AM DIRECTOR OF MATH Narrative SAMANTHA PFT - 03/16/2018 1:39 PM DIRECTOR OF MATH Verified by Rhiannon Cani on 03/16/2018. Freddy Dumont MD LAB - BLOOD ORD ERABLES [facility] PFT LABDE SCAN * (ABNORMAL) Hepatic panel (03/16/2018 9:14 AM DIRECTOR OF MATH) Albumin (External) 4.4 3.2 - 4.6 g/dL [...] SCAN Blood specimen (specimen) 03/16/2018 9:14 AM DIRECTOR OF MATH Narrative BREEZE PFT - 03/16/2018 1:39 PM DIRECTOR OF MATH Verified by Rhiannon Cain on 03/16/2018. Freddy Dumont MD LAB - BLOOD ORD ERABLES Performing Organization Address [facility] Co de Phone Number BREEZE PFT LABDE SCAN * Magnesium (03/16/2018 9:14 AM DIRECTOR OF MATH) Magnesium (External) 2.2 1.6 - 2.6 mg/dL LABDE SCAN Blood specimen (specimen) 03/16/2018 9:14 AM DIRECTOR OF MATH Narrative [facility] PFT - 03/16/2018 1:39 PM DIRECTOR OF MATH Verified by Rhiannon Cain on 03/16/2018. Freddy [...] documented as of this encounter Care Teams Mumps Developer Relationship Specialty Start Date End Date Rubén Boyle MD PCP - General Family Practice 03/08/16 Pamela Blanco, DIRECTOR OF CORPORATE STRATEGY [facility] [address] [place] [address] Referring Physician 07/13/16 Pedro Segura MD [facility] [address] [place] [address] Nephrology 10/03/16 Freddy Craft MD 516 [facility] 2A [place], [place] [address] Assigned Gastroenterology Provider 02/08/20 Abdifatah Van MD 717 [facility] 353 [place], [place] 817144 Assigned Nephrology Provider 07/13/20 11/07/23 Nicole Carranza NP 420 [facility] 508 [place], [place] 621395 Assigned Heart and Vascular Provider 01/09/22 Andressa Ruiz PA-C 420 [facility] 803 [place], [place] [address] Physician Tank Car Mechanic Endocrinology, Diabetes, and Metabolism 03/01/22 Ashlyn Storm RN [facility] 711 [place] [address] Registered Nurse 03/03/22 09/15/22 Rubén Gunter [facility] 909 [place] [address] Assigned MTM Pharmacist 02/27/22 Andressa Ruiz PA-C 420 [facility] 803 [place] [address] Assigned Endocrinology Provider 03/13/22 09/07/23 Suzan Harry MD 420 [place] [address] Nephrology 06/30/23 Yasmeen Powers MD 500 [place] [address] Nephrology 10/24/23 Yasmeen Powers MD 500 [place] [address] Assigned Nephrology Provider 11/08/23 documented as of this encounter
--- OUTSIDE RECORDS SUMMARY | 2024-01-17 17:28 | XMS_ITS | Encounter Summary ---
Author Organization [facility] Address [address] [place] [address] Care Team Providers Care Shipping Track Supervisor Name Role Phone Rubén Boyle MD Primary Care Provider Pamela Blanco STONE DRESSER Unavailable Pedro Segura MD Unavailable Freddy Craft MD Unavailable Abdifatah Van MD Unavailable Nicole Carranza STONE DRESSER Unavailable [phone] Andressa Ruiz-C Unavailable Ashlyn Storm RN Unavailable Rubén Gunter [facility] Unavailable Andressa Ruiz-C Unavailable Suzan Harry MD Unavailable [phone] Yasmeen Powers MD Unavailable [phone] Yasmeen Powers MD Unavailable [phone] Encounter Details Date Type Department Care Team (Late st Contact Info) Description 02/11/2020 [facility] Transplant Clinic [address] [place] [address] Susan Trujillo RN Social History [...] documented as of this encounter Care Teams Shipping Track Supervisor Relationship Specialty Start Date End Date Rubén Boyle MD PCP - General Family Practice 03/08/16 Pamela Blanco STONE DRESSER [facility] [address] [place], [place] [address] Referring Physician 07/13/[address] [facility] [address] [place], [place] 6[address] Nephrology 10/03/16 Freddy Craft MD 516 [facility] [address] [place], [place] [address] Assigned Gastroenterology Provider 02/08/20 Abdifatah Van MD 717 [facility] [address] [place], [place] 921904 Assigned Nephrology Provider 07/13/20 11/07/23 Nicole Carranza NP 420 [facility] 508 [place], [place] 0[address]885 Assigned Heart and Vascular Provider 01/09/22 Andressa Ruiz PA-C 420 [facility] 803 [place], [place] 4[address]15 Physician Signal Tester Endocrinology, Diabetes, and Metabolism 03/01/22 Ashlyn Storm, RN [facility] 711 [place], [place] 9[address]394 Registered Nurse 03/03/22 09/15/22 Rubén Gunter [facility] [address] [place] [address] Assigned MTM Pharmacist 02/27/22 Andressa Ruiz PA-C 420 [facility] 803 [place], [place] [address] Assigned Endocrinology Provider 03/13/22 09/07/23 Suzan Harry MD 420 [place] [address] Nephrology 06/30/23 Yasmeen Powers MD 500 [place] [address] Nephrology 10/24/23 Yasmeen Powers MD 500 [place] [address] Assigned Nephrology Provider 11/08/23 documented as of this encounter
--- OUTSIDE RECORDS SUMMARY | 2024-01-17 17:28 | XMS_ITS | Encounter Summary ---
Author Organization [facility] Address [address] [place] [address] Care Team Providers Care Oilfield Plant And Field Operator Name Role Phone Rubén Boyle MD Primary Care Provider Pamela Blanco TWISTING FRAME CHANGER Unavailable [phone] Pedro Segura MD Unavailable [phone] Freddy Craft MD Unavailable [phone] Abdifatah Van MD Unavailable Nicole Carranza TWISTING FRAME CHANGER Unavailable [phone] Andressa Ruiz-C Unavailable Ashlyn Storm RN Unavailable Rubén Gunter [facility] Unavailable Andressa Ruiz-C Unavailable Suzan Harry MD Unavailable [phone] Yasmeen Powers MD Unavailable [phone] Yasmeen Powers MD Unavailable [phone] Encounter Details Date Type Department Care Team (Latest Contact Info) Description 09/12/2019 External Order Results [facility] [address] [place] [address] Outside, Provider History of liver [...] - BLOOD ORD ERABLES Performing Organization Address City/State/[facility] Co de Phone [...] BLOOD ORDERABL ES Performing Organization Address [facility] de Phone Number BREEZE PFT LABDE SCAN [...] BLOOD ORDERABL ES Performing Organization Address [facility] Co de Phone Number [facility] PFT LABDE SCAN * Magnesium (09/12/2019 11:00 AM CDT) Magnesium (External) 1.6 1.5 - 2.6 MG/DL LABDE SCAN Blood specimen (specimen) 09/12/2019 11:00 AM CDT Subhash SINGH PFT - 09/13/2019 9:16 AM CDT Verified by Pedrito Stallworth on 09/13/2019. Patient Reported LAB - BLOOD ORDERABL ES Performing Organization Address [facility]/ZIP Co de Phone Number [facility] LABDE SCAN * (ABNORMAL) Basic metabolic [...] BLOOD ORDERABL ES Performing Organization Address [facility]/ZIP Co de Phone Number [facility] PF LABDE SCAN * (ABNORMAL) UA with Microscopic (09/12/2019 11:00 AM CDT) Color Urine (External) ORANGE YELLOW LABDE SCAN Appearance Urine (External) CLEAR CLEAR LABDE SCAN Glucose Urine (External) TRACE(H) NEGATIVE LABDE SCAN Bilirubin Urine (External) NEG NEGATIVE LABDE SCAN Ketones Urine (External) TRACE(H) NEGATIVE LABDE SCAN Specific [place] Urine (External) >=1.030 LABDE SCAN pH Urine [...] documented as of this encounter Care Teams Oilfield Plant And Field Operator Relationship Specialty Start Date End Date Rubén Boyle MD PCP - General Family Practice 03/08/16 Pamela Blanco NP [facility] [address] [place], [place] 465377 Referring Physician 07/13/16 Pedro Segura MD [facility] [address] [place], [place] 157017 Nephrology 10/03/16 Freddy Craft MD 516 [facility] [address] [place], [place] 0[address] Assigned Gastroenterology Provider 02/08/20 Abdifatah Van MD 717 [facility] [address] [place], [place] 957374 Assigned Nephrology Provider 07/13/20 11/07/23 Nicole Carranza, GERMANIA 420 [facility] 508 [place], [place] [address]265 Assigned Heart and Vascular Provider 01/09/22 Andressa Ruiz PA-C 420 [facility] 803 [place], [place] 7[address]65 Physician Predator Control Trapper Endocrinology, Diabetes, and Metabolism 03/01/22 Ashlyn Storm, RN [facility] [address]11 [place], [place] 535064 Registered Nurse 03/03/22 09/15/22 Rubén Gunter [facility] [address] [place], [place] [address]405 Assigned MTM Pharmacist 02/27/22 Andressa Ruiz PA-C 420 [facility] 803 [place], [place] [address]265 Assigned Endocrinology Provider 03/13/22 09/07/23 Suzan Harry MD 420 [place], [place] 948885 Nephrology 06/30/23 Yasmeen Powers MD 500 [place] [address] Nephrology 10/24/23 Yasmeen Powers MD [address] [place] [address] Assigned Nephrology Provider 11/08/23 documented as of this encounter
--- OUTSIDE RECORDS SUMMARY | 2024-01-17 17:28 | XMS_ITS | Encounter Summary ---
Author Organization [place] Address [address] [place] [address] Care Team Providers Care Curriculum And Assessment Coordinator Name Role Phone Rubén Boyle MD Primary Care Provider Pamela Blanco COSMETIC MAKER Unavailable [phone] Pedro Segura MD Unavailable Freddy Craft MD Unavailable [phone] Abdifatah Van MD Unavailable Nicole Carranza COSMETIC MAKER Unavailable [phone] Andressa Ruiz-C Unavailable [phone] Ashlyn Storm RN Unavailable Rubén Gunter [facility] Unavailable Andressa Ruiz-C Unavailable Suzan Harry MD Unavailable [phone] Yasmeen Powers MD Unavailable [phone] Yasemen Powers MD Unavailable [phone] Encounter Details Date Type Department Care Team (Late st Contact Info) Description 10/24/2018 External Order Results [facility] [address] [place] [address] Social History Tobacco Use Types [...] - BLOOD ORDERABL ES Performing Organization Address City/[facility]/ZIP Co de Phone Number B[facility]ZE [...] documented as of this encounter Care Teams Curriculum And Assessment Coordinator Relationship Specialty Start Date End Date Rubén Boyle MD PCP - General Family Practice 03/08/16 Pamela Blanco, COSMETIC MAKER [facility] [address] [place] [address] Referring Physician 07/13/16 Pedro Segura MD [facility] [address] [place] [address] Nephrology 10/03/16 Freddy Craft MD [address] [facility] [place], [place] [address] Assigned Gastroenterology Provider 02/08/20 Abdifatah Van MD 717 [facility] [address] [place], [place] 486464 Assigned Nephrology Provider 07/13/20 11/07/23 Nicole Carranza, GERMANIA 420 [facility] 508 [place], [place] [address]765 Assigned Heart and Vascular Provider 01/09/22 Andressa Ruiz PA-C 420 [facility] 803 [place], [place] 234895 Physician Sales Account Director Endocrinology, Diabetes, and Metabolism 03/01/22 Ashlyn Storm, RN [facility] 711 [place] [address] Registered Nurse 03/03/22 09/15/22 Rubén Gunter [facility] [address] [place] [address] Assigned MTM Pharmacist 02/27/22 Andressa Ruiz PA-C 420 [facility] 803 [place] [address] Assigned Endocrinology Provider 03/13/22 09/07/23 Suzan Harry MD 420 [place] [address] Nephrology 06/30/23 Yasmeen Powers MD 500 [place] [address] Nephrology 10/24/23 Yasmeen Powers MD 500 [place] [address] Assigned Nephrology Provider 11/08/23 documented as of this encounter
--- OUTSIDE RECORDS SUMMARY | 2024-01-17 17:28 | XMS_ITS | Encounter Summary ---
Author Organization [place] Address [address] [place] [address] Care Team Providers Care Tumbler Machine Operator Name Role Phone Rubén Boyle MD Primary Care Provider Pamela Blanco COOK VEGETABLE Unavailable [phone] Pedro Segura MD Unavailable [phone] Freddy Craft MD Unavailable [phone] Abdifatah Van MD Unavailable Nicole Carranza COOK VEGETABLE Unavailable [phone] Andressa Ruiz-C Unavailable Ashlyn Storm RN Unavailable [phone] Rubén Gunter [facility] Unavailable Andressa Ruiz-C Unavailable [phone] Suzan Harry MD Unavailable [phone] Yasmeen Powers MD Unavailable Yasmeen Powers MD Unavailable [phone] Encounter Details Date Type Department Care Team (Late st Contact Info) Description 12/07/2018 External Order Results [facility] [address] [place] [address] Social History Tobacco Use Types [...] - BLOOD ORDERABL ES Performing Organization Address City/[facility]/ZIP Co de Phone Number B[facility] PFT [...] documented as of this encounter Care Teams Tumbler Machine Operator Relationship Specialty Start Date End Date Rubén Boyle MD PCP - General Family Practice 03/08/16 Pamela Blanco, COOK VEGETABLE [facility] [address] [place] [address] Referring Physician 07/13/16 Pedro Segura MD [facility] [address] [place] [address] Nephrology 10/03/16 Freddy Craft MD [facility] [place], [place] 2040[address] Assigned Gastroenterology Provider 02/08/20 Abdifatah Van MD 717 [facility] [address] [place], [place] 89[address] Assigned Nephrology Provider 07/13/20 11/07/23 Nicole Carranza, GERMANIA 420 [facility] 508 [place], [place] 937965 Assigned Heart and Vascular Provider 01/09/22 Andressa Ruiz PA-C 420 [facility] 803 [place], [place] 9[address]85 Physician Hat Binder Endocrinology, Diabetes, and Metabolism 03/01/22 Ashlyn Storm, RN [facility] 711 [place] [address] Registered Nurse 03/03/22 09/15/22 Rubén Gunter [facility] [address] [place] [address] Assigned MTM Pharmacist 02/27/22 Andressa Ruiz PA-C 420 [facility] 803 [place] [address] Assigned Endocrinology Provider 03/13/22 09/07/23 Suzan Harry MD 420 [place] [address] Nephrology 06/30/23 Yasmeen Powers MD 500 [place] [address] Nephrology 10/24/23 Yasmeen Powers MD 500 [place] [address] Assigned Nephrology Provider 11/08/23 documented as of this encounter
--- OUTSIDE RECORDS SUMMARY | 2024-01-17 17:28 | XMS_ITS | Encounter Summary ---
Author Organization [facility] Address [address] [place] [address] Care Team Providers Care Stone Crusher Operator Name Role Phone Rubén Bolye MD Primary Care Provider Pamela Blanco INWARD TOLL OPERATOR Unavailable Pedro Segura MD Unavailable Freddy Craft MD Unavailable Abdifatah Van MD Unavailable Nicole Carranza INWARD TOLL OPERATOR Unavailable [phone] Andressa Ruiz-C Unavailable Ashlyn Storm RN Unavailable Rubén Gunter [facility] Unavailable Andressa Ruiz-C Unavailable [phone] Suzan Harry MD Unavailable [phone] Yasmeen Powers MD Unavailable Yasmeen Powers MD Unavailable [phone] Encounter Details Date Type Department Care Team (Late st Contact Info) Description 05/17/2019 External Order Results [facility] [address] [place] [address] Social History Tobacco Use Types [...] PLATELETS & DIFFERENTIAL Routine 05/17/2019 10:10 AM SOCIAL SERVICES AIDE LIPID PROFILE Routine 05/17/2019 10:10 AM SOCIAL SERVICES AIDE HEMOGLOBIN A1C Routine 05/17/2019 10:10 AM SOCIAL SERVICES AIDE ALT Routine 05/17/2019 10:10 AM SOCIAL SERVICES AIDE BASIC METABOLIC PANEL Routine 05/17/2019 10:10 AM SOCIAL SERVICES AIDE ALBUMIN RANDOM URINE QUANTITATIVE Routine 05/17/2019 10:05 AM SOCIAL SERVICES AIDE documented in this encounter Results * (ABNORMAL) Lipid Profile (05/17/2019 10:10 AM SOCIAL SERVICES AIDE) Cholesterol (External) 170 90 - 200 MG/DL LABDE SCAN Triglycerides (External) 206(H) 40 - 197 U/L LABDE SCAN HDL Cholesterol (External) 88 <100 mg/dl LABDE SCAN LDL-Cholesterol (External) 41 >=40 mg/dl LABDE SCAN Blood specimen (specimen) 05/17/2019 10:10 AM SOCIAL SERVICES AIDE Narrative SAMANTHA PFT - 05/23/2019 7:16 AM SOCIAL SERVICES AIDE Verified by Pedrito Stallworth on 05/23/2019. Patient Reported LAB - BLOOD ORDERABL ES BRECARISA PFT LABDE SCAN * ALT (05/17/2019 10:10 AM SOCIAL SERVICES AIDE) ALT (External) 13 4 - 50 U/L LABDE SCAN Blood specimen (specimen) 05/17/2019 10:10 AM SOCIAL SERVICES AIDE Narrative BREEZE PFT - 05/23/2019 7:16 AM SOCIAL SERVICES AIDE Verified by Pedrito Stallworth on 05/23/2019. Patient Reported LAB - BLOOD ORDERABL ES Performing Organization Address [facility]/ZIP Co de Phone Number [facility] DORAL PFT LABDE SCAN * (ABNORMAL) Basic metabolic panel (05/17/2019 10:10 AM SOCIAL SERVICES AIDE) Glucose (External) 238(H) 60 - 115 mg/dL [...] SCAN Blood specimen (specimen) 05/17/2019 10:10 AM SOCIAL SERVICES AIDE Narrative SAMANTHA PFT - 05/23/2019 7:16 AM SOCIAL SERVICES AIDE Verified by Pedrito Stallworth on 05/23/2019. Patient Reported LAB - BLOOD ORDERABL ES Performing Organization Address [facility] Co de Phone Number [facility] * (ABNORMAL) Hemoglobin A1c (05/17/2019 10:10 AM SOCIAL SERVICES AIDE) Hemoglobin A1C (External) 7.40(H) <=6.9 % LABDE SCAN Blood specimen (specimen) 05/17/2019 10:10 AM SOCIAL SERVICES AIDE Narrative ERICKEZE PFT - 05/23/2019 7:16 AM SOCIAL SERVICES AIDE Verified by Pedrito Stallworth on 05/23/2019. Patient Reported LAB - BLOOD ORDERABL ES Performing Organization Address City/[facility]/ZIP Co de Phone Number SAMANTHA PFT LABDE SCAN * (ABNORMAL) CBC with platelets differential (05/17/2019 10:10 AM SOCIAL SERVICES AIDE) WBC Count (External) 2.5(L) 4.5 - 11.0 [...] SCAN Blood specimen (specimen) 05/17/2019 10:10 AM SOCIAL SERVICES AIDE Narrative SAMANTHA PFT - 05/23/2019 7:16 AM SOCIAL SERVICES AIDE Verified by Pedrito Stallworth on 05/23/2019. Patient Reported LAB - BLOOD ORDERABL ES SAMANTHA PFT LABDE SCAN * Albumin Random Urine Quantitative with Creat Ratio (05/17/2019 10:05 AM SOCIAL SERVICES AIDE) Microalbumin Urine (External) 1 mg/dl LABDE SCAN Creatinine Urine mg/dL (External) 106 mg/dl LABDE SCAN Microalbumin Urine mg/g Cr (External) 9 0 - 30 mg/g LABDE SCAN Urine specimen (specimen) 05/17/2019 10:05 AM SOCIAL SERVICES AIDE Narrative SAMANTHA PFT - 05/23/2019 7:16 AM SOCIAL SERVICES AIDE Verified by Pedrito Stallworth on 05/23/2019. 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, 07/10/16 rectal swab 06/21/2016 06/21/2016 documented as of this encounter Care Teams Stone Crusher Operator Relationship Specialty Start Date End Date Rubén Boyle MD PCP - General Family Practice 03/08/16 Pamela Blanco NP [facility] [address] [place], [place] 9[address]997 Referring Physician 07/13/16 Pedro Segura MD [facility] [address] [place], [place] 921377 Nephrology 10/03/16 Freddy Craft MD [address] [place] [address] Assigned Gastroenterology Provider 02/08/20 Abdifatah Van MD 717 [facility] [address] [place] [address] Assigned Nephrology Provider 07/13/20 11/07/23 Nicole Carranza NP 420 [facility] 508 [place], [place] 5[address]85 Assigned Heart and Vascular Provider 01/09/22 Andressa Ruiz PA-C 420 [facility] 803 [place], [place] [address] Physician Swinging Cut Off Saw Operator Endocrinology, Diabetes, and Metabolism 03/01/22 Ashlyn Storm RN [facility] 711 [place], [place] [address] Registered Nurse 03/03/22 09/15/22 Rubén Gunter [facility] 909 [place], [place] [address] Assigned MTM Pharmacist 02/27/22 Andressa Ruiz PA-C 420 [facility] 803 [place], [place] [address]4705 Assigned Endocrinology Provider 03/13/22 09/07/23 Suzan Harry MD 420 [place], [place] 506355 Nephrology 06/30/23 Yasmeen Powers MD 500 [place], [place] 55[address]55 Nephrology 10/24/23 Yasmeen Powers MD NPI: [id number] [place] [address] Assigned Nephrology Provider 11/08/23 documented as of this encounter
--- OUTSIDE RECORDS SUMMARY | 2024-01-17 17:28 | XMS_ITS | Encounter Summary ---
Author Organization [facility] Address [address] [place] [address] Care Team Providers Care Procurement Clerk Name Role Phone Rubén Boyle MD Primary Care Provider Pamela Blanco CONTRACTING SUPPORT SPECIALIST Unavailable Pedro Segura MD Unavailable Freddy Craft MD Unavailable Abdifatah Van MD Unavailable Nicole Carranza CONTRACTING SUPPORT SPECIALIST Unavailable [phone] Andressa Ruiz-C Unavailable Ashlyn Storm RN Unavailable [phone] Rubén Gunter [facility] Unavailable Andressa Ruiz-C Unavailable [phone] Suzan Harry MD Unavailable [phone] Yasmeen Powers MD Unavailable [phone] Yasmeen Powers MD Unavailable [phone] Encounter Details Date Type Department Care Team (Late st Contact Info) Description 07/03/2019 Telephone [facility] [address] [place] [address] Georgina Stewart, [place] Social History [...] documented as of this encounter Care Teams Procurement Clerk Relationship Specialty Start Date End Date Rubén Boyle MD PCP - General Family Practice 03/08/16 Pamela lBanco NP [facility] [address] [place], [place] [address] Referring Physician 07/13/16 Pedro Segura MD [facility] [address] [place], [place] 9[address] Nephrology 10/03/16 Freddy Craft MD [address] [place] [address] Assigned Gastroenterology Provider 02/08/20 Abdifatah Vna MD 717 [facility] [address] [place] [address] Assigned Nephrology Provider 07/13/20 11/07/23 Nicole Carranza CONTRACTING SUPPORT SPECIALIST 420 [facility] 508 [place], [place] 4832[address] Assigned Heart and Vascular Provider 01/09/22 Andressa Ruiz PA-C 420 [facility] 803 [place], [place] [address]395 Physician Toxicology Supervisor Endocrinology, Diabetes, and Metabolism 03/01/22 Ashlyn Storm RN [facility] 711 [place], [place] 035334 Registered Nurse 03/03/22 09/15/22 Rubén Gunter [facility] [address] [place] [address] 009425 Assigned MTM Pharmacist 02/27/22 Andressa Ruiz PA-C 420 [facility] 803 [place], [place] 650835 Assigned Endocrinology Provider 03/13/22 09/07/23 Suzan Harry MD 420 [place], [place] 749955 Nephrology 06/30/23 Yasmeen Powers MD [address] [place] [address] Nephrology 10/24/23 Yasmeen Powers MD 500 [place] [address] Assigned Nephrology Provider 11/08/23 documented as of this encounter
--- OUTSIDE RECORDS SUMMARY | 2024-01-17 17:28 | XMS_ITS | Encounter Summary ---
Author Organization [facility] Address [address] [place] [address] Care Team Providers Care Fuel Oil Truck Driver Name Role Phone Rubén Boyle MD Primary Care Provider Pamela Blanco CAPTAIN/AIRLINE PILOT Unavailable Pedro Segura MD Unavailable Freddy Craft MD Unavailable [phone] Abdifatah Van MD Unavailable Nicole Carranza CAPTAIN/AIRLINE PILOT Unavailable [phone] Andressa Ruiz-C Unavailable Ashlyn Storm RN Unavailable Rubén Gunter [facility] Unavailable Andressa Ruiz-C Unavailable Suzan Harry MD Unavailable [phone] Yasmeen Powers MD Unavailable Yasmeen Powers MD Unavailable [phone] Encounter Details Date Type Department Care Team (Late st Contact Info) Description 03/19/2019 External Order Results [facility] [address] [place] [address] Social History Tobacco Use Types [...] UA WITH MICROSCOPIC Routine 03/19/2019 12:00 PM RETAIL PRESENTATION SPECIALIST TACROLIMUS BY TANDEM MASS SPECTROMETRY Routine 03/19/2019 9:30 AM RETAIL PRESENTATION SPECIALIST MAGNESIUM Routine 03/19/2019 9:30 AM RETAIL PRESENTATION SPECIALIST LIPID PROFILE Routine 03/19/2019 9:30 AM RETAIL PRESENTATION SPECIALIST HEPATIC FUNCTION PANEL Routine 03/19/2019 9:30 AM RETAIL PRESENTATION SPECIALIST BASIC METABOLIC PANEL Routine 03/19/2019 9:30 AM RETAIL PRESENTATION SPECIALIST CBC WITH PLATELETS Routine 03/19/2019 9: 30 AM RETAIL PRESENTATION SPECIALIST documented in this encounter Results * (ABNORMAL) UA with Microscopic (03/19/2019 12:00 PM RETAIL PRESENTATION SPECIALIST) Color Urine (External) Yellow Yellow LABDE SCAN Appearance Urine (External) Clear Clear LABDE SCAN Specific [place] Urine (External) >=1.030(A) 1.010 - 1.025 LABDE [...] SCAN Urine specimen (specimen) 03/19/2019 12:00 PM RETAIL PRESENTATION SPECIALIST Narrative BREEZE PFT - 03/20/2019 6:18 AM RETAIL PRESENTATION SPECIALIST Verified by Cruzito Marlow on 03/20/2019. Patient Reported LAB - URINE ORDERABL ES BREEZE PFT LABDE SCAN * Tacrolimus level (03/19/2019 9:30 AM RETAIL PRESENTATION SPECIALIST) Tacrolimus(FK-5 06) (External) 5.0 See scan ng/mL LABDE SCAN Tacrolimus Last Dose (External) 03/18/2019 8:00 PM LABDE SCAN Blood specimen (specimen) 03/19/2019 9:30 AM RETAIL PRESENTATION SPECIALIST Narrative AMNAE PFT - 03/20/2019 3:24 PM RETAIL PRESENTATION SPECIALIST Verified by Rhiannon Cain on 03/20/2019. Patient Reported LAB - BLOOD ORDERABL ES BREEZE PFT LABDE SCAN * (ABNORMAL) CBC with platelets (03/19/2019 9:30 AM RETAIL PRESENTATION SPECIALIST) WBC Count (External) 2.7(L) 4.5 - 11.0 [...] SCAN Blood specimen (specimen) 03/19/2019 9:30 AM RETAIL PRESENTATION SPECIALIST Narrative AMNAE PFT - 03/19/2019 1:12 PM RETAIL PRESENTATION SPECIALIST Verified by Pedrito Stallworth on 03/19/2019. Patient Reported LAB - BLOOD ORDERABL ES Performing Organization Address [facility] Co de Phone Number BREEZE PFT LABDE SCAN * Magnesium (03/19/2019 9:30 AM RETAIL PRESENTATION SPECIALIST) Magnesium (External) 1.8 1.6 - 2.6 mg/dL LABDE SCAN Blood specimen (specimen) 03/19/2019 9:30 AM RETAIL PRESENTATION SPECIALIST Subhash BREEZE PFT - 03/19/2019 1:12 PM RETAIL PRESENTATION SPECIALIST Verified by Pedrito Stallworth on 03/19/2019. Patient Reported LAB - BLOOD ORDERABL ES Performing Organization Address [facility] de Phone Number BREEZE PFT LABDE SCAN * (ABNORMAL) Lipid Profile (03/19/2019 9:30 AM RETAIL PRESENTATION SPECIALIST) Cholesterol (External) 179 100 - 199 mg/dL LABDE SCAN Triglycerides (External) 195(H) <150 mg/dL LABDE SCAN HDL Cholesterol (External) 43 >40 mg/dL LABDE SCAN LDL-Cholesterol (External) 97 <=130 mg/dL LABDE SCAN Blood specimen (specimen) 03/19/2019 9:30 AM RETAIL PRESENTATION SPECIALIST Subhash SINGH PFT - 03/19/2019 1:12 PM RETAIL PRESENTATION SPECIALIST Verified by Pedrito Stallworth on 03/19/2019. Patient Reported LAB - BLOOD ORDERABL ES Performing Organization Address [facility] Co de Phone Number BREEZE PFT LABDE SCAN * Hepatic panel (03/19/2019 9:30 AM RETAIL PRESENTATION SPECIALIST) Albumin (External) 4.2 3.2 - 4.6 g/dL [...] SCAN Blood specimen (specimen) 03/19/2019 9:30 AM RETAIL PRESENTATION SPECIALIST Narrative BREEZE PFT - 03/19/2019 1:12 PM RETAIL PRESENTATION SPECIALIST Verified by Pedrito Stallworth on 03/19/2019. Patient Reported LAB - BLOOD ORDERABL ES BREEZE PFT LABDE SCAN * (ABNORMAL) Basic metabolic panel (03/19/2019 9:30 AM RETAIL PRESENTATION SPECIALIST) Sodium (External) 137 135 - 145 mmol/L [...] SCAN Blood specimen (specimen) 03/19/2019 9:30 AM RETAIL PRESENTATION SPECIALIST Narrative AMNAE PFT - 03/19/2019 1:10 PM RETAIL PRESENTATION SPECIALIST Verified by Pedrito Stallworth on 03/19/2019. 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 [address] [place] [address] Assigned Nephrology Provider 07/13/20 11/07/23 Nicole Carranza NP 420 [facility] 508 [place], [place] 8056[address] Assigned Heart and Vascular Provider 01/09/22 Andressa Ruiz PA-C 420 [facility] 803 [place], [place] [address]6075 Physician Cotton Machine Operator Endocrinology, Diabetes, and Metabolism 03/01/22 Ashlyn Storm, RN [facility] [address] [place] [address] Registered Nurse 03/03/22 09/15/22 Rubén Gunter [facility] [address] [place] [address] Assigned MTM Pharmacist 02/27/22 Andressa Ruiz PA-C 420 [facility] 803 [place] [address] Assigned Endocrinology Provider 03/13/22 09/07/23 Suzan Harry MD 420 [place] [address] Nephrology 06/30/23 Yasmeen Powers MD 500 [place] [address] Nephrology 10/24/23 Yasmeen Powers MD 500 [place] [address] Assigned Nephrology Provider 11/08/23 documented as of this encounter
--- OUTSIDE RECORDS SUMMARY | 2024-01-17 17:28 | XMS_ITS | Encounter Summary ---
Author Organization [place] Address [address] [place] [address] Care Team Providers Care Regroover Name Role Phone Rubén Boyle MD Primary Care Provider [phone] Pamela Blanco DIRECTOR OF BUSINESS SERVICES Unavailable Pedro Segura MD Unavailable Freddy Craft MD Unavailable [phone] Abdifatah Van MD Unavailable Nicole Carranza DIRECTOR OF BUSINESS SERVICES Unavailable Andressa Ruiz-C Unavailable [phone] Ashlyn Storm RN Unavailable Rubén Gunter [facility] Unavailable Andressa Ruiz-C Unavailable Suzan Harry MD Unavailable [phone] Yasmeen Powers MD Unavailable Yasmeen Powers MD Unavailable [phone] Encounter Details Date Type Department Care Team (Late st Contact Info) Description 05/28/[address] [facility] [address] [place] [address] Social History Tobacco Use Types [...] TANDEM MASS SPECTROMETRY Routine 05/28/2019 10:10 AM INSPECTOR METAL CAN MAGNESIUM Routine 05/28/2019 10:10 AM INSPECTOR METAL CAN HEPATIC FUNCTION PANEL Routine 05/28/2019 10:10 AM INSPECTOR METAL CAN BASIC METABOLIC PANEL Routine 05/28/2019 10:10 AM INSPECTOR METAL CAN CBC WITH PLATELETS Routine 05/28/2019 10 :10 AM INSPECTOR METAL CAN documented in this encounter Results * Tacrolimus level (05/28/2019 10:10 AM INSPECTOR METAL CAN) Tacrolimus(FK-5 06) (External) 5.4 See scan ng/mL LABDE SCAN Tacrolimus Last Dose (External) Not given LABDE SCAN Blood specimen (specimen) 05/28/2019 10:10 AM INSPECTOR METAL CAN Narrative SAMANTHA PFT - 05/30/2019 8:40 AM INSPECTOR METAL CAN Verified by Cruzito Marlow on 05/30/2019. Patient Reported LAB - BLOOD ORDERABL ES SAMANTHA PFT LABDE SCAN * (ABNORMAL) CBC with platelets (05/28/2019 10:10 AM INSPECTOR METAL CAN) WBC Count (External) 2.7(L) 4.5 - 11.0 [...] SCAN Blood specimen (specimen) 05/28/2019 10:10 AM INSPECTOR METAL CAN Narrative BREEZE PFT - 05/29/2019 8:37 AM INSPECTOR METAL CAN Verified by Pedrito Stallworth on 05/29/2019. Patient Reported LAB - BLOOD ORDERABL ES BREEZE PFT LABDE SCAN * Magnesium (05/28/2019 10:10 AM INSPECTOR METAL CAN) Magnesium (External) 1.6 1.6 - 2.6 mg/dL LABDE SCAN Blood specimen (specimen) 05/28/2019 10:10 AM INSPECTOR METAL CAN Narrative ERICKEZE PFT - 05/29/2019 8:37 AM INSPECTOR METAL CAN Verified by Pedrito Stallworth on 05/29/2019. Patient Reported LAB - BLOOD ORDERABL ES BREEZE PFT LABDE SCAN * Hepatic panel (05/28/2019 10:10 AM INSPECTOR METAL CAN) Albumin (External) 4.2 3.2 - 4.6 g/dL [...] SCAN Blood specimen (specimen) 05/28/2019 10:10 AM INSPECTOR METAL CAN Narrative BREEZE PFT - 05/29/2019 8:37 AM INSPECTOR METAL CAN Verified by Pedrito Stallworth on 05/29/2019. Patient Reported LAB - BLOOD ORDERABL ES BREEZE PFT LABDE SCAN * (ABNORMAL) Basic metabolic panel (05/28/2019 10:10 AM INSPECTOR METAL CAN) Sodium (External) 139 135 - 145 mmol/L [...] SCAN Blood specimen (specimen) 05/28/2019 10:10 AM INSPECTOR METAL CAN Narrative BREEZE PFT - 05/29/2019 8:37 AM INSPECTOR METAL CAN Verified by Pedrito Stallworth on 05/29/2019. 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 06/21/2016 06/21/2016 documented as of this encounter Care Teams Regroover Relationship Specialty Start Date End Date Rubén Boyle MD PCP - General Family Practice 03/08/16 Pamela Blanco DIRECTOR OF BUSINESS SERVICES [facility] [address] [place] [address] Referring Physician 07/13/16 Pedro Segura MD [facility] [address] [place], [place] 27[address] Nephrology 10/03/16 Freddy Craft MD 516 [facility] [address]A [place], [place] [address] Assigned Gastroenterology Provider 02/08/20 Abdifatah Van MD 717 [facility] [address] [place] [address] Assigned Nephrology Provider 07/13/20 11/07/23 Nicole Carranza NP 420 [facility] 508 [place], [place] [address] Assigned Heart and Vascular Provider 01/09/22 Andressa Ruiz PA-C 420 [facility] 803 [place] [address] Physician Consumer Attorney Endocrinology, Diabetes, and Metabolism 03/01/22 Ashlyn Storm RN [facility] 7[address] [place], [place] [address] Registered Nurse 03/03/22 09/15/22 Rubén Gunter [facility] 909 [place] [address] Assigned MTM Pharmacist 02/27/22 Andressa Ruiz PA-C 420 [facility] 803 [place], [place] 77[address] Assigned Endocrinology Provider 03/13/22 09/07/23 Suzan Harry MD 420 [place], [place] [address] Nephrology 06/30/23 Yasmeen Powers MD 500 [place] [address] Nephrology 10/24/23 Yasmeen Powers MD 500 [place] [address] Assigned Nephrology Provider 11/08/23 documented as of this encounter
--- OUTSIDE RECORDS SUMMARY | 2024-01-17 17:28 | XMS_ITS | Encounter Summary ---
Author Organization [facility] Address [address] [place] [address] Care Team Providers Care Technology Support Analyst Name Role Phone Rubén Boyle MD Primary Care Provider Pamela Blanco AFTER SCHOOL TUTOR Unavailable Pedro Segura MD Unavailable [phone] Freddy Craft MD Unavailable Abdifatah Van MD Unavailable Nicole Carranza AFTER SCHOOL TUTOR Unavailable [phone] Andressa Ruiz-C Unavailable [phone] Ashlyn Storm RN Unavailable [phone] Rubén Gunter [facility] Unavailable Andressa Ruiz-C Unavailable Suzan Harry MD Unavailable [phone] Yasmeen Powers MD Unavailable [phone] Yasmeen Powers MD Unavailable [phone] Encounter Details Date Type Department Care Team (Latest Contact Info) Description 08/25/2018 External Order Results [facility] [address] [place] [address] History of liver transplant (H); [...] - BLOOD ORD ERABLES Performing Organization Address [facility]/ZIP Co de Phone Number ERICKEZKayli PFT [...] - BLOOD ORDERABL ES Performing Organization Address [facility] Co de Phone Number AMNAE PFT LABDE [...] 08/25/2018 5:16 PM CDT Verified by Melissa tOto on 08/25/2018. Freddy Dumont MD LAB - BLOOD ORD ERABLES Performing Organization Address [facility]/ZIP Co de Phone Number BREEZE PFT [...] - BLOOD ORD ERABLES Performing Organization Address [facility] Co de Phone Number BREEZE PFT LABDE SCAN * Magnesium (08/25/2018 9:52 AM CDT) Magnesium (External) 1.9 1.6 - 2.6 mg/dL LABDE SCAN Blood specimen (specimen) 08/25/2018 9:52 AM CDT Narrative BREEZE PFT - 08/25/2018 5:16 PM CDT Verified by Melissa Otto on 08/25/2018. Freddy Dumont MD LAB - BLOOD ORD ERABLES Performing Organization Address City/[facility] Co de Phone Number BREEZE PFT LABDE [...] documented as of this encounter Care Teams Technology Support Analyst Relationship Specialty Start Date End Date Rubén Boyle MD PCP - General Family Practice 03/08/16 Pamela Blanco AFTER SCHOOL TUTOR [facility] [address] [place] [address] Referring Physician 07/13/16 Pedro Segura MD [facility] [address] [place] [address] Nephrology 10/03/16 Freddy Craft MD 516 [facility] [address] [place], [place] [address] Assigned Gastroenterology Provider 02/08/20 Abdifatah Van MD 7[address] [facility] [address] [place] [address] Assigned Nephrology Provider 07/13/20 11/07/23 Nicole Carranza NP 420 [facility] 508 [place], [place] [address] Assigned Heart and Vascular Provider 01/09/22 Andressa Ruiz PA-C 420 [facility] 803 [place], [place] [address] Physician Cover Mat Machine Operator Endocrinology, Diabetes, and Metabolism 03/01/22 Ashlyn Storm [facility] [address] [place] [address] Registered Nurse 03/03/22 09/15/22 Rubén Gunter [facility] 909 [place] [address] Assigned MTM Pharmacist 02/27/22 Andressa Ruiz PA-C 420 [facility] 803 [place] [address] Assigned Endocrinology Provider 03/13/22 09/07/23 Suzan Harry MD 420 [place] [address] Nephrology 06/30/23 Yasmeen Powers MD 500 [place] [address] Nephrology 10/24/23 Yasmeen Powers MD [address] [place] [address] Assigned Nephrology Provider 11/08/23 documented as of this encounter
--- OUTSIDE RECORDS SUMMARY | 2024-01-17 17:29 | XMS_ITS | Encounter Summary ---
Author Organization [facility] Address [address] [place] [address] Care Team Providers Care Marketing Account Executive Name Role Phone Rubén Boyle MD Primary Care Provider Pamela Blanco SPORTS MEDICINE MASSEUR Unavailable Pedro Segura MD Unavailable Freddy Craft MD Unavailable [phone] Abdifatah Van MD Unavailable Nicole Carranza SPORTS MEDICINE MASSEUR Unavailable [phone] Andressa Ruiz-C Unavailable Ashlyn Storm RN Unavailable [phone] Rubén Gunter [facility] Unavailable Andressa Ruiz-C Unavailable [phone] Suzan Harry MD Unavailable [phone] Yasmeen Powers MD Unavailable [phone] Yasmeen Powers MD Unavailable [phone] Encounter Details Date Type Department Care Team (Latest Contact Info) Description 09/06/2017 External Order Results [facility] [address] [place] [address] History of liver transplant (H); [...] - BLOOD ORD ERABLES Performing Organization Address City/[facility]/ZIP Co de Phone Number BREEZE PFT LABDE SCAN * Phosphorus (09/06/2017 8:38 AM CDT) Phosphorus (External) 3.9 2.3 - 4.7 mg/dL LABDE SCAN Blood specimen (specimen) 09/06/2017 8:38 AM CDT Narrative BREEZE PFT - 09/07/2017 7:21 AM CDT Verified by Rhiannon Cain on 09/07/2017. Freddy Dumont MD LAB - BLOOD ORD ERABLES Performing Organization Address [facility]/ZIP Co de Phone Number BREEZE PFT [...] as of this encounter Care Teams Marketing Account Executive Relationship Specialty Start Date End Date Rubén Boyle MD PCP - General Family Practice 03/08/16 Pamela Blanco NP [facility] [address] [place] [address] Referring Physician 07/13/16 Pedro Sgeura MD [facility] [address] [place] [address] Nephrology 10/03/16 Freddy Craft MD [address] [facility] [address] [place], [place] [address] Assigned Gastroenterology Provider 02/08/20 Abdifatah Van MD 717 [facility] [address] [place], [place] [address] Assigned Nephrology Provider 07/13/20 11/07/23 Nicole Carranza NP 420 [facility] 508 [place], [place] [address] Assigned Heart and Vascular Provider 01/09/22 Andressa Ruiz PA-C 420 [facility] 803 [place], [place] [address] Physician Analog Ic Design Engineer Endocrinology, Diabetes, and Metabolism 03/01/22 Ashlyn Storm, RN [facility] 711 [place] [address] Registered Nurse 03/03/22 09/15/22 Rubén Gunter [facility] [address] [place] [address] Assigned MTM Pharmacist 02/27/22 Andressa Ruiz PA-C 420 [facility] 803 [place] [address] Assigned Endocrinology Provider 03/13/22 09/07/23 Suzan Harry MD 420 [place] [address] Nephrology 06/30/23 Yasmeen Powers MD 500 [place] [address] Nephrology 10/24/23 Yasmeen Powers MD 500 [place] [address] Assigned Nephrology Provider 11/08/23 documented as of this encounter
--- OUTSIDE RECORDS SUMMARY | 2024-01-17 17:29 | XMS_ITS | Encounter Summary ---
Author Organization [facility] Address [address] [place] [address] Care Team Providers Care Internet Marketing Consultant Name Role Phone Rubén Boyle MD Primary Care Provider [phone] Pamela Blanco BUSINESS REPORTING DEVELOPER Unavailable [phone] Pedro Segura MD Unavailable Freddy Craft MD Unavailable [phone] Abdifatah Van MD Unavailable Nicole Carranza BUSINESS REPORTING DEVELOPER Unavailable [phone] Andressa Ruiz-C Unavailable Ashlyn Storm RN Unavailable Rubén Gunter [facility] Unavailable Andressa Ruiz-C Unavailable Suzan Harry MD Unavailable [phone] Yasmeen Powers MD Unavailable [phone] Yasmeen Powers MD Unavailable [phone] Encounter Details Date Type Department Care Team (Latest Contact Info) Description 08/24/2017 External Order Results [facility] [address] [place] [address] History of liver transplant (H); [...] - BLOOD ORD ERABLES Performing Organization Address [facility]/ZIP Co [...] BLOOD ORD ERABLES Performing Organization Address City/[facility]/ZIP Co de Phone Number AMNAE PFT [...] as of this encounter Care Teams Internet Marketing Consultant Relationship Specialty Start Date End Date Rubén Boyle MD PCP - General Family Practice 03/08/16 Pamela Blanco NP [address] [address] Referring Physician 07/13/16 Pedro Segura MD [facility] [address] [place], [place] [address] Nephrology 10/03/16 Freddy Craft MD 516 [facility] [place], [place] [address] Assigned Gastroenterology Provider 02/08/20 Abdifatah Van MD 717 [facility] [address] [place], [place] [address] Assigned Nephrology Provider 07/13/20 11/07/23 Nicloe Carranza NP 420 [facility] 508 [place], [place] [address] Assigned Heart and Vascular Provider 01/09/22 Andressa Ruzi PA-C 420 [facility] 803 [place], [place] [address] Physician Air Carrier Maintenance Inspector Endocrinology, Diabetes, and Metabolism 03/01/22 Ashlyn Storm RN [facility] 711 [place], [place] [address] Registered Nurse 03/03/22 09/15/22 Rubén Gunter [facility] [address] [place] [address] Assigned MTM Pharmacist 02/27/22 Andressa Ruiz PA-C 420 [facility] 803 [place], [place] [address]275 Assigned Endocrinology Provider 03/13/22 09/07/23 Suzan Harry MD [address] [place] [address] Nephrology 06/30/23 Yasmeen Powers MD 500 [place], [place] [address]805 Nephrology 10/24/23 Yasmeen Powers MD 500 [place], [place] [address] Assigned Nephrology Provider 11/08/23 documented as of this encounter
--- OUTSIDE RECORDS SUMMARY | 2024-01-17 17:29 | XMS_ITS | Encounter Summary ---
Author Organization [place] Address [address] [place] [address] Care Team Providers Care Technical Illustrator Name Role Phone Rubén Boyle MD Primary Care Provider Pamela Blanco BEEF GRINDER Unavailable [phone] Pedro Segura MD Unavailable Freddy Craft MD Unavailable Abdifatah Van MD Unavailable Nicole Carranza BEEF GRINDER Unavailable [phone] Andressa Ruiz-C Unavailable Ashlyn Storm RN Unavailable [phone] Rubén Gunter [facility] Unavailable Andressa Ruiz-C Unavailable Suzan Harry MD Unavailable [phone] Yasmeen Powers MD Unavailable Yasmeen Powers MD Unavailable [phone] Encounter Details Date Type Department Care Team (Latest Contact Info) Description 06/02/2017 External Order Results [facility] [address] [place] [address] Long-term use of immunosuppressant medication; Liver replaced by transplant (H); 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 transplant; 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 Social [...] TANDEM MASS SPECTROMETRY Routine 05/30/2017 8:57 AM EXTRUSION TECHNICIAN Long-term use of immunosuppressant medication Liver replaced by transplant (H) PHOSPHORUS Routine 05/30/2017 8:57 AM EXTRUSION TECHNICIAN Liver replaced by transplant (H) 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 transplant 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 MAGNESIUM Routine 05/30/2017 8:57 AM EXTRUSION TECHNICIAN Liver replaced by transplant (H) 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 transplant 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 HEPATIC FUNCTION PANEL Routine 05/30/2017 8:57 AM EXTRUSION TECHNICIAN Liver replaced by transplant (H) 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 transplant custodial use of drug BASIC METABOLIC PANEL Routine 05/30/2017 8:57 AM EXTRUSION TECHNICIAN Liver replaced by transplant (H) 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 transplant custodial use of drug CBC WITH PLATELETS Routine 05/30/2017 8: 57 AM EXTRUSION TECHNICIAN Liver replaced by transplant (H) 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 Freddy Dumont MD LAB - BLOOD ORD ERABLES BREEZE PFT LABDE SCAN * Magnesium (05/30/2017 8:57 AM EXTRUSION TECHNICIAN) Magnesium (External) 1.9 1.6 - 2.6 mg/dL LABDE SCAN Blood specimen (specimen) 05/30/2017 8:57 AM EXTRUSION TECHNICIAN Narrative BREEZE PFT - 06/02/2017 2:39 PM EXTRUSION TECHNICIAN Verified by Myrna Monreal on 06/02/2017. Freddy Dumont MD LAB - BLOOD ORD ERABLES Performing Organization Address [facility]/ZIP Co de Phone Number BREEZE PFT LABDE SCAN * Hepatic panel (Albumin, ALT, AST, Bili, Alk Phos, TP) (05/30/2017 8:57 AM EXTRUSION TECHNICIAN) Albumin (External) 3.7 3.2 - 4.6 g/dL [...] SCAN Blood specimen (specimen) 05/30/2017 8:57 AM EXTRUSION TECHNICIAN Narrative BREEZE PFT - 06/02/2017 2:39 PM EXTRUSION TECHNICIAN Verified by Myrna Monreal on 06/02/2017. Freddy Dumont MD LAB - BLOOD ORD ERABLES BREEZE PFT LABDE SCAN * (ABNORMAL) CBC with platelets (05/30/2017 8:57 AM EXTRUSION TECHNICIAN) WBC Count (External) 2.1(L) 4.5 - 11.0 [...] SCAN Blood specimen (specimen) 05/30/2017 8:57 AM EXTRUSION TECHNICIAN Narrative SAMANTHA KEMP - 06/02/2017 2:39 PM EXTRUSION TECHNICIAN Verified by Myrna Monreal on 06/02/2017. Freddy Dumont MD LAB - BLOOD ORD ERABLES SAMANTHA PFT LABDE SCAN * (ABNORMAL) Basic metabolic panel (05/30/2017 8:57 AM EXTRUSION TECHNICIAN) Sodium (External) 140 135 - 145 mmol/L [...] SCAN Blood specimen (specimen) 05/30/2017 8:57 AM EXTRUSION TECHNICIAN Narrative BREEZE PFT - 06/02/2017 2:39 PM EXTRUSION TECHNICIAN Verified by Myrna Monreal on 06/02/2017. Freddy Dumont MD LAB - BLOOD ORD ERABLES BREEZE PFT LABDE SCAN * Tacrolimus level (05/30/2017 8:57 AM EXTRUSION TECHNICIAN) Tacrolimus(FK-5 06) (External) 7.4 ng/mL LABDE SCAN Tacrolimus Last Dose (External) Not given LABDE SCAN Blood specimen (specimen) 05/30/2017 8:57 AM EXTRUSION TECHNICIAN Narrative BREEZE PFT - 06/02/2017 2:16 PM EXTRUSION TECHNICIAN Verified by Myrna Monreal on 06/02/2017. 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 [address] [place], [place] [address]25 Assigned Gastroenterology Provider 02/08/20 Abdifatah Van MD 717 [facility] [address] [place], [place] 125784 Assigned Nephrology Provider 07/13/20 11/07/23 Nicole Carranza NP 420 [facility] [address] [place], [place] 47[address] Assigned Heart and Vascular Provider 01/09/22 Andressa Ruiz PA-C 420 [facility] 803 [place], [place] 234555 Physician Property And Casualty Insurance Agent Endocrinology, Diabetes, and Metabolism 03/01/22 Ashlyn Storm RN [facility] 711 [place], [place] 285814 Registered Nurse 03/03/22 09/15/22 Rubén Gunter [facility] 909 [place], [place] 927965 Assigned MTM Pharmacist 02/27/22 Andressa Ruiz PA-C 420 [facility] 803 [place], [place] 05[address]65 Assigned Endocrinology Provider 03/13/22 09/07/23 Suzan Harry MD [address] [place] [address]505 Nephrology 06/30/23 Yasmeen Powers MD [address] [place], [place] 8[address]995 Nephrology 10/24/23 Yasmeen Powers MD [address] [place], [place] 221465 Assigned Nephrology Provider 11/08/23 documented as of this encounter
--- OUTSIDE RECORDS SUMMARY | 2024-01-17 17:29 | XMS_ITS | Encounter Summary ---
Author Organization [place] Address [address] [place] [address] Care Team Providers Care Crushing Mill Operator Name Role Phone Rubén Boyle MD Primary Care Provider Pamela Blanco CUPOLA TENDER HELPER Unavailable Pedro Segura MD Unavailable [phone] Freddy Craft MD Unavailable [phone] Abdifatah Van MD Unavailable Nicole Carranza CUPOLA TENDER HELPER Unavailable [phone] Andressa Ruiz-C Unavailable Ashlyn Storm RN Unavailable Rubén Gunter [facility] Unavailable Andressa Ruiz-C Unavailable Suzan Harry MD Unavailable [phone] Yasmeen Powers MD Unavailable [phone] Yasmeen Powers MD Unavailable [phone] Encounter Details Date Type Department Care Team (Latest Contact Info) Description 01/25/2018 External Order Results [facility] [address] [place] [address] History of liver transplant (H); [...] documented as of this encounter Care Teams Crushing Mill Operator Relationship Specialty Start Date End Date Rubén Boyle MD PCP - General Family Practice 03/08/16 Pamela Blanco NP [facility] [address] [place] [address] Referring Physician 07/13/16 Pedro Segura MD [facility] [address] [place] [address] Nephrology 10/03/16 Freddy Craft MD [address] [place] [address] Assigned Gastroenterology Provider 02/08/20 Abdifatah Van MD [address] [place] [address] Assigned Nephrology Provider 07/13/20 11/07/23 Nicole Carranza NP 420 [facility] 508 [place], [place] [address] Assigned Heart and Vascular Provider 01/09/22 Andressa Ruiz PA-C 420 [facility] 803 [place], [place] [address] Physician Cushion Padder Endocrinology, Diabetes, and Metabolism 03/01/22 Ashlyn Storm, RN [facility] 711 [place], [place] 584434 Registered Nurse 03/03/22 09/15/22 Rubén Gunter [facility] [address] [place] [address]35455 Assigned MTM Pharmacist 02/27/22 Andressa Ruiz PA-C 420 [facility] 803 [place], [place] 245555 Assigned Endocrinology Provider 03/13/22 09/07/23 Suzan Harry MD 420 [place] [address] Nephrology 06/30/23 Yasmeen Powers MD 500 [place], [place] 498155 Nephrology 10/24/23 Yasmeen Powers MD 500 [place] [address] Assigned Nephrology Provider 11/08/23 documented as of this encounter
--- OUTSIDE RECORDS SUMMARY | 2024-01-17 17:29 | XMS_ITS | Encounter Summary ---
Author Organization [place] Address [address] [place] [address] Care Team Providers Care Driver Salesman Name Role Phone Rubén Boyle MD Primary Care Provider Pamela Blanco TIP STITCHER Unavailable Pedro Segura MD Unavailable [phone] Freddy Craft MD Unavailable Abdifatah Van MD Unavailable Nicole Carranza TIP STITCHER Unavailable [phone] Andressa Ruiz-C Unavailable Ashlyn Storm RN Unavailable [phone] Rubén Gunter [facility] Unavailable Andressa Ruiz-C Unavailable Suzan Harry MD Unavailable [phone] Yasmeen Powers MD Unavailable [phone] Yasmeen Powers MD Unavailable [phone] Encounter Details Date Type Department Care Team (Latest Contact Info) Description 09/28/[address] [facility] Transplant [facility] [address] [place] [address] History of liver transplant (H); [...] - BLOOD ORDERABL ES Performing Organization Address [facility] Co [...] CDT Verified by Melissa Otto on 09/28/2017. Ferddy Dumont MD LAB - BLOOD ORD EDGAR [...] ORD ERABLES Performing Organization Address City/[facility]/ZIP Co de Phone Number SAMANTHA PFT [...] documented as of this encounter Care Teams Driver Salesman Relationship Specialty Start Date End Date Rubén Boyle MD PCP - General Family Practice 03/08/16 Pamela Blanco NP [facility] [place] [address] [place] [address] Referring Physician 07/13/16 Pedro Segura MD [facility] [address] [place] [address] Nephrology 10/03/16 Freddy Craft MD [facility] [address] [place], [place] 118085 Assigned Gastroenterology Provider 02/08/20 Abdifatah Van MD [address] [facility] [address] [place], [place] [address] Assigned Nephrology Provider 07/13/20 11/07/23 Nicole Carranza NP 420 [facility] 508 [place], [place] 0[address] Assigned Heart and Vascular Provider 01/09/22 Andressa Ruiz PA-C 420 [facility] 803 [place] [address] Physician Human Resources Partner Endocrinology, Diabetes, and Metabolism 03/01/22 Ashlyn Storm RN [facility] 711 [place], [place] 907724 Registered Nurse 03/03/22 09/15/22 Rubén Gunter [facility] [address] [place] [address] [id number] Assigned MTM Pharmacist 02/27/22 Andressa Ruiz PA-C 420 [facility] 803 [place], [place] 717015 Assigned Endocrinology Provider 03/13/22 09/07/23 Suzan Harry MD 420 [place], [place] 9[address]175 Nephrology 06/30/23 Yasmeen Powers MD 500 [place], [place] 510575 Nephrology 10/24/23 Yasmeen Powers MD [address] [place], [place] 728285 Assigned Nephrology Provider 11/08/23 documented as of this encounter
--- OUTSIDE RECORDS SUMMARY | 2024-01-17 17:29 | XMS_ITS | Encounter Summary ---
Author Organization [facility] Address [address] [place] [address] Care Team Providers Care Consulting Practice Director Name Role Phone Rubén Boyle MD Primary Care Provider Pamela Blanco COMPUTER SYSTEMS ARCHITECT Unavailable [phone] Pedro Segura MD Unavailable Freddy Craft MD Unavailable Abdifatah Van MD Unavailable Nicole Carranza COMPUTER SYSTEMS ARCHITECT Unavailable [phone] Andressa Ruiz-C Unavailable Ashlyn Storm RN Unavailable [phone] Rubén Gunter [facility] Unavailable Andressa Ruiz-C Unavailable Suzan Harry MD Unavailable [phone] Yasmeen Powers MD Unavailable [phone] Yasmeen Powers MD Unavailable [phone] Encounter Details Date Type Department Care Team (Latest Contact Info) Description 12/15/2017 External Order Results [facility] [address] [place] [address] History of liver transplant (H); [...] - BLOOD ORD ERABLES Performing Organization Address [facility] Co de Phone Number BREEZE PFT LABDE [...] - BLOOD ORD ERALASHAE Performing Organization Address [facility]/ZIP Co de Phone Number BREEZE [...] documented as of this encounter Care Teams Consulting Practice Director Relationship Specialty Start Date End Date Rubén Boyle MD PCP - General Family Practice 03/08/16 Pamela Blanco NP [address] [place] [address] Referring Physician 07/13/16 Pedro Segura MD [facility] [place] [address] [place] [address] Nephrology 10/03/16 Freddy Craft MD 516 [facility] 2A [place], [place] 744[address] Assigned Gastroenterology Provider 02/08/20 Abdifatah aVn MD 717 [facility] [address] [place], [place] 722764 Assigned Nephrology Provider 07/13/20 11/07/23 Nicole Carranza NP 420 [facility] [address] [place], [place] 926245 Assigned Heart and Vascular Provider 01/09/22 Andressa Ruiz PA-C 420 [facility] 803 [place], [place] 590895 Physician Basic Sciences Dean Endocrinology, Diabetes, and Metabolism 03/01/22 Ashlyn Storm, RN [facility] 711 [place], [place] 709224 Registered Nurse 03/03/22 09/15/22 Rubén Gunter [facility] [address] [place] [address] [id number] Assigned MTM Pharmacist 02/27/22 Andressa Ruiz PA-C 420 [facility] 803 [place] [address] Assigned Endocrinology Provider 03/13/22 09/07/23 Suzan Harry MD [address] [place] [address] Nephrology 06/30/23 Yasmeen Powers MD 500 [place] [address] Nephrology 10/24/23 Yasmeen Powers MD 500 [place] [address] Assigned Nephrology Provider 11/08/23 documented as of this encounter
--- OUTSIDE RECORDS SUMMARY | 2024-01-17 17:29 | XMS_ITS | Encounter Summary ---
Author Organization [place] Address [address] [place] [address] Care Team Providers Care Ctrs Name Role Phone Rubén Boyle MD Primary Care Provider Pamela Blanco BARYTES GRINDER Unavailable [phone] Pedro Segura MD Unavailable Freddy Craft MD Unavailable [phone] Abdifatah Van MD Unavailable Nicole Carranza BARYTES GRINDER Unavailable [phone] Andressa Ruiz-C Unavailable [phone] Ashlyn Storm RN Unavailable [phone] Rubén Gunter [facility] Unavailable Andressa Ruiz-C Unavailable Suzan Harry MD Unavailable [phone] Yasmeen Powers MD Unavailable [phone] Yasmeen Powers MD Unavailable [phone] Encounter Details Date Type Department Care Team (Latest Contact Info) Description 07/08/[address] 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 BASIC METABOLIC PANEL Routine 07/08/2017 7:56 AM CDT Liver replaced by transplant (H) 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 CBC WITH PLATELETS Routine 07/08/2017 7: 56 AM CDT Liver replaced by transplant (H) 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 documented in this encounter [...] BLOOD ORD ERABLES Performing Organization Address [facility] Co de Phone Number [facility] LABDE SCAN * Phosphorus (07/08/2017 7:56 [...] BLOOD ORD ERABLES Performing Organization Address [facility]/ZIP Co de Phone Number BREEZE [...] replaced by transplant 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 Encounter for long-term (current) use of other medications documented in this encounter Additional Health Concerns Infection Onset Date Last Indicated Resolved Time 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/16 urine, 07/10/16 rectal swab 06/21/2016 06/21/2016 documented as of this encounter Care Teams Ctrs Relationship Specialty Start Date End Date Rubén Boyle MD PCP - General Family Practice 03/08/16 Pamela Blanco NP [facility] [address] [place] [address] Referring Physician 07/13/16 Pedro Segura MD [facility] [address] [place] [address] Nephrology 10/03/16 Freddy Craft MD 516 [facility] [address] [place] [address] Assigned Gastroenterology Provider 02/08/20 Abdifatah Van MD 717 [facility] [address] [place] [address] Assigned Nephrology Provider 07/13/20 11/07/23 Nicole Carranza, [place] 420 [facility] 508 [place] [address] Assigned Heart and Vascular Provider 01/09/22 Andressa Ruiz PA-C 420 [facility] 803 [place] [address] Physician Wireless Telegrapher Endocrinology, Diabetes, and Metabolism 03/01/22 Ashlyn Storm, RN [facility] 711 [place] [address] Registered Nurse 03/03/22 09/15/22 Rubén Gunter [facility] [address] [place] [address] Assigned MTM Pharmacist 02/27/22 Andressa Ruiz PA-C 420 [facility] 803 [place] [address] Assigned Endocrinology Provider 03/13/22 09/07/23 Suzan Harry MD 420 [place] [address] Nephrology 06/30/23 Yasmeen Powers MD 500 [place] [address] Nephrology 10/24/23 Yasmeen Powers MD 500 [place], [place] 383085 Assigned Nephrology Provider 11/08/23 documented as of this encounter
--- OUTSIDE RECORDS SUMMARY | 2024-01-17 17:29 | XMS_ITS | Encounter Summary ---
Author Organization [facility] Address [address] [place] [address] Care Team Providers Care Parts Delivery Driver Name Role Phone Rubén Boyle MD Primary Care Provider [phone] Pamela Blanco EMOTIONALLY IMPAIRED TEACHER Unavailable [phone] Pedro Segura MD Unavailable Freddy Craft MD Unavailable [phone] Abdifatah Van MD Unavailable Nicole Carranza EMOTIONALLY IMPAIRED TEACHER Unavailable [phone] Andressa Ruiz-C Unavailable Ashlyn Storm RN Unavailable Rubén Gunter [facility] Unavailable Andressa Ruiz-C Unavailable Suzan Harry MD Unavailable [phone] Yasmeen Powers MD Unavailable [phone] Yasmeen Powers MD Unavailable [phone] Encounter Details Date Type Department Care Team (Latest Contact Info) Description 11/04/2017 External Order Results [facility] [address] [place] [address] History of liver transplant (H); [...] - BLOOD ORD ERALASHAE Performing Organization Address [facility] Co de Phone Number BREEZE PFT LABDE SCAN * Magnesium (11/04/2017 9:16 AM CDT) Magnesium (External) 2.2 1.6 - 2.6 mg/dL LABDE SCAN Blood specimen (specimen) 11/04/2017 9:16 AM CDT Narrative BREEZE PFT - 11/07/2017 8:39 AM CDT Verified by Myrna Monreal on 11/07/2017. Freddy Dumont MD LAB - BLOOD ORD ERALASHAE Performing Organization Address City/[facility]/ZIP Co de Phone Number BREEZE PFT LABDE [...] as of this encounter Care Teams Parts Delivery Driver Relationship Specialty Start Date End Date Rubén Boyle MD PCP - General Family Practice 03/08/16 Pamela Blanco NP [address] [place] [address] Referring Physician 07/13/16 Pedro Segura MD [facility] [place] [address] [place] [address] Nephrology 10/03/16 Freddy Craft MD 516 [facility] 2A [place], [place] [address] Assigned Gastroenterology Provider 02/08/20 Abdifatah Van MD 717 [facility] [address] [place], [place] 547444 Assigned Nephrology Provider 07/13/20 11/07/23 Nicole Carranza NP 420 [facility] 508 [place], [place] 115075 Assigned Heart and Vascular Provider 01/09/22 Andressa Ruiz PA-C 420 [facility] 803 [place], [place] [address]385 Physician Tongue And Quarter Stitcher Endocrinology, Diabetes, and Metabolism 03/01/22 Ashlyn Storm, RN [facility] 711 [place], [place] 36[address] Registered Nurse 03/03/22 09/15/22 Rubén Gunter [facility] [address] [place] [address] [id number] Assigned MTM Pharmacist 02/27/22 Andressa Ruiz PA-C 420 [facility] 803 [place] [address] Assigned Endocrinology Provider 03/13/22 09/07/23 Suzan Harry MD [address] [place] [address] Nephrology 06/30/23 Yasmeen Powers MD 500 [place] [address] Nephrology 10/24/23 Yasmeen Powers MD 500 [place] [address] Assigned Nephrology Provider 11/08/23 documented as of this encounter
--- OUTSIDE RECORDS SUMMARY | 2024-01-17 17:29 | XMS_ITS | Encounter Summary ---
Author Organization [facility] Address [address] [place] [address] Care Team Providers Care Neon Installer Name Role Phone Rubén Boyle MD Primary Care Provider [phone] Pamela Blanco BACK SEAM STITCHER Unavailable [phone] Pedro Segura MD Unavailable Freddy Craft MD Unavailable Abdifatah Van MD Unavailable Nicole Carranza BACK SEAM STITCHER Unavailable [phone] Andressa Ruiz-C Unavailable Ashlyn Storm RN Unavailable Rubén Gunter [facility] Unavailable Andressa Ruiz-C Unavailable Suzan Harry MD Unavailable [phone] Yasmeen Powers MD Unavailable [phone] Yasmeen Powers MD Unavailable [phone] Encounter Details Date Type Department Care Team (Latest Contact Info) Description 06/28/2017 External Order Results [facility] [address] [place] [address] Liver replaced by transplant (H); [...] TANDEM MASS SPECTROMETRY Routine 06/20/2017 9:30 AM TRUCK RENTAL MANAGER Liver replaced by transplant (H) 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 transplant USP use of drug PHOSPHORUS Routine 06/20/2017 9:30 AM TRUCK RENTAL MANAGER Liver replaced by transplant (H) 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 transplant USP use of drug MAGNESIUM Routine 06/20/2017 9:30 AM TRUCK RENTAL MANAGER Liver replaced by transplant (H) 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 transplant USP use of drug HEPATIC FUNCTION PANEL Routine 06/20/2017 9:30 AM TRUCK RENTAL MANAGER Liver replaced by transplant (H) 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 transplant USP use of drug BASIC METABOLIC PANEL Routine 06/20/2017 9:30 AM TRUCK RENTAL MANAGER Liver replaced by transplant (H) 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 transplant supervisor intermediates use of drug CBC WITH PLATELETS Routine 06/20/2017 9: 30 AM TRUCK RENTAL MANAGER Liver replaced by transplant (H) 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 transplant USP use of drug documented in this encounter Results * Tacrolimus level (06/20/2017 9:30 AM TRUCK RENTAL MANAGER) Tacrolimus(FK-5 06) (External) 6.3 5 - 8 ng/mL LABDE SCAN Blood specimen (specimen) 06/20/2017 9:30 AM TRUCK RENTAL MANAGER Subhash SINGH PFT - 06/28/2017 2:01 PM CDT Verified by Rhiannon Cain on 06/28/2017. Freddy Dumont MD LAB - BLOOD ORD ERABLES Performing Organization Address [facility]/ZIP Co de Phone Number BREEZE PFT LABDE SCAN * Hepatic panel (Albumin, ALT, AST, Bili, Alk Phos, TP) (06/20/2017 9:30 AM TRUCK RENTAL MANAGER) Albumin (External) 4.0 3.2 - 4.6 g/dL [...] SCAN Blood specimen (specimen) 06/20/2017 9:30 AM TRUCK RENTAL MANAGER Narrative BREEZE PFT - 06/28/2017 2:01 PM CDT Verified by Rhiannon Cain on 06/28/2017. Ferddy Dumont MD LAB - BLOOD ORD ERABLES Performing Organization Address [facility] Co de Phone Number BREEZE PFT LABDE SCAN * (ABNORMAL) Phosphorus (06/20/2017 9:30 AM TRUCK RENTAL MANAGER) Phosphorus (External) 4.9(H) 2.3 - 4.7 mg/dL LABDE SCAN Blood specimen (specimen) 06/20/2017 9:30 AM TRUCK RENTAL MANAGER Narrative BREEZE PFT - 06/28/2017 2:01 PM CDT Verified by Rhiannon Cain on 06/28/2017. Freddy Dumont MD LAB - BLOOD ORD ERALASHAE BREEZE PFT LABDE SCAN * Magnesium (06/20/2017 9:30 AM TRUCK RENTAL MANAGER) Magnesium (External) 1.9 1.6 - 2.0 mg/dL LABDE SCAN Blood specimen (specimen) 06/20/2017 9:30 AM TRUCK RENTAL MANAGER Subhash SUAREZEZE PFT - 06/28/2017 2:01 PM CDT Verified by Rhiannon Cain on 06/28/2017. Freddy Dumont MD LAB - BLOOD ORD ERABLES ERICKEZE PFT LABDE SCAN * (ABNORMAL) Basic metabolic panel (06/20/2017 9:30 AM TRUCK RENTAL MANAGER) Sodium (External) 137 135 - 145 mmol/L [...] SCAN Blood specimen (specimen) 06/20/2017 9:30 AM TRUCK RENTAL MANAGER Narrative SAMANTHA PFT - 06/28/2017 2:01 PM CDT Verified by Rhiannon Cain on 06/28/2017. Freddy Dumont MD LAB - BLOOD ORD ERABLES ERICKEZE PFT LABDE SCAN * (ABNORMAL) CBC with platelets (06/20/2017 9:30 AM TRUCK RENTAL MANAGER) WBC Count (External) 2.4(L) 4.5 - 11.0 [...] SCAN Blood specimen (specimen) 06/20/2017 9:30 AM TRUCK RENTAL MANAGER Narrative AMNAKayli PFT - 06/28/2017 2:01 PM [...] documented as of this encounter Care Teams Neon Installer Relationship Specialty Start Date End Date Rubén Boyle MD PCP - General Family Practice 03/08/16 Pamela Blanco NP [facility] [address] [place] [address] Referring Physician 07/13/16 Pedro Segura MD [facility] [address] [place], [place] 153137 Nephrology 10/03/16 Freddy Craft MD [facility] [place], [place] [address] Assigned Gastroenterology Provider 02/08/20 Abdifatah Van MD 717 [facility] [address] [place], [place] [address]184 Assigned Nephrology Provider 07/13/20 11/07/23 Nicole Carranza NP 420 [facility] 508 [place], [place] 413365 Assigned Heart and Vascular Provider 01/09/22 Andressa Ruiz PA-C 420 [facility] 803 [place], [place] 3328[address] Physician Production Service Manager Endocrinology, Diabetes, and Metabolism 03/01/22 Ashlyn Storm RN [facility] 711 [place], [place] 947264 Registered Nurse 03/03/22 09/15/22 Rubén Gunter [facility] 909 [facility] [address] [place], [place] 416535 Assigned MTM Pharmacist 02/27/22 Andressa Ruiz PA-C 420 [facility] 803 [place] [address] Assigned Endocrinology Provider 03/13/22 09/07/23 Suzan Harry MD [address] [place] [address] Nephrology 06/30/23 Yasmeen Powers MD 500 [place] [address] Nephrology 10/24/23 Yasmeen Powers MD 500 [place] [address] Assigned Nephrology Provider 11/08/23 documented as of this encounter
--- OUTSIDE RECORDS SUMMARY | 2024-01-17 17:29 | XMS_ITS | Encounter Summary ---
Author Organization [facility] Address [address] [place] [address] Care Team Providers Care Butt Sawyer Name Role Phone Rubén Boyle MD Primary Care Provider Pamela Blanco KNURLING MACHINE OPERATOR Unavailable Pedro Segura MD Unavailable Freddy Craft MD Unavailable [phone] Abdifatah Van MD Unavailable Nicole Carranza KNURLING MACHINE OPERATOR Unavailable [phone] Andressa Ruiz-C Unavailable [phone] Ashlyn Storm RN Unavailable [phone] Rubén Gunter [facility] Unavailable Andressa Ruiz-C Unavailable Suzan Harry MD Unavailable [phone] Yasmeen Powers MD Unavailable [phone] Yasmeen Powers MD Unavailable [phone] Encounter Details Date Type Department Care Team (Latest Contact Info) Description 11/16/2017 External Order Results [facility] [address] [place] [address] History of liver transplant (H); [...] BLOOD ORD ERABLES Performing Organization Address [facility] Co de Phone Number BREEZE [...] documented as of this encounter Care Teams Butt Sawyer Relationship Specialty Start Date End Date Rubén Boyle MD PCP - General Family Practice 03/08/16 Pamela Blanco NP [address] [place] [address] Referring Physician 07/13/16 Pedro Segura MD [facility] [place] [address] [place] [address] Nephrology 10/03/16 Freddy Craft MD 516 [facility] 2A [place], [place] 227985 Assigned Gastroenterology Provider 02/08/20 Abdifatah Van MD 717 [facility] [address] [place], [place] [address] Assigned Nephrology Provider 07/13/20 11/07/23 Nicole Carranza NP 420 [facility] 508 [place], [place] 946615 Assigned Heart and Vascular Provider 01/09/22 Andressa Ruiz PA-C 420 [facility] 803 [place], [place] [address]15 Physician Search Engine Optimization Analyst Endocrinology, Diabetes, and Metabolism 03/01/22 Ashlyn Storm, RN [facility] 711 [place], [place] 583854 Registered Nurse 03/03/22 09/15/22 Rubén Gunter [facility] [address] [place] [address] [id number] Assigned MTM Pharmacist 02/27/22 Andressa Ruiz PA-C 420 [facility] 803 [place] [address] Assigned Endocrinology Provider 03/13/22 09/07/23 Suzan Harry MD [address] [place] [address] Nephrology 06/30/23 Yasmeen Powers MD 500 [place] [address] Nephrology 10/24/23 Yasmeen Powers MD 500 [place] [address] Assigned Nephrology Provider 11/08/23 documented as of this encounter
--- OUTSIDE RECORDS SUMMARY | 2024-01-17 17:29 | XMS_ITS | Encounter Summary ---
Author Organization [facility] Address [address] [place] [address] Care Team Providers Care Handicrafts Teacher Name Role Phone Rubén Boyle MD Primary Care Provider Pamela Blanco PAD TUFTER Unavailable [phone] Pedro Segura MD Unavailable Freddy Craft MD Unavailable [phone] Abdifatah Van MD Unavailable Nicole Carranza PAD TUFTER Unavailable [phone] Andressa Ruiz-C Unavailable [phone] Ashlyn Storm RN Unavailable Rubén Gunter [facility] Unavailable Andressa Ruiz-C Unavailable Suzan Harry MD Unavailable [phone] Yasmeen Powers MD Unavailable Yasmeen Powers MD Unavailable [phone] Encounter Details Date Type Department Care Team (Late st Contact Info) Description 09/20/2017 External Order Results [facility] [address] [place] [address] Social History Tobacco Use Types [...] documented as of this encounter Care Teams Handicrafts Teacher Relationship Specialty Start Date End Date Rubén Boyle MD PCP - General Family Practice 03/08/16 Pamela Blanco PAD TUFTER [facility] [address] [place], [place] [address]107 Referring Physician 07/13/16 Pedro Segura MD [facility] [address] [place], [place] 98[address] Nephrology 10/03/16 Freddy Craft MD 516 [facility] 2A [place], [place] 2[address]85 Assigned Gastroenterology Provider 02/08/20 Abdifatah Van MD 717 [facility] [address] [place] [address] Assigned Nephrology Provider 07/13/20 11/07/23 Nicole Carranza NP 420 [facility] 508 [place] [address] Assigned Heart and Vascular Provider 01/09/22 Andressa Ruiz PA-C 420 [facility] 803 [place] [address] Physician Personal Injury Attorney Endocrinology, Diabetes, and Metabolism 03/01/22 Ashlyn Storm, RN [facility] 711 [place] [address] Registered Nurse 03/03/22 09/15/22 Rubén Gunter [facility] [address] [place] [address] Assigned MTM Pharmacist 02/27/22 Andressa Ruiz PA-C 420 [facility] 803 [place] [address] Assigned Endocrinology Provider 03/13/22 09/07/23 Suzan Harry MD [address] [place] [address] Nephrology 06/30/23 Yasmeen Powers MD 500 [place] [address] Nephrology 10/24/23 Yasmeen Powers MD 500 [place] [address] Assigned Nephrology Provider 11/08/23 documented as of this encounter
--- OUTSIDE RECORDS SUMMARY | 2024-01-17 17:30 | XMS_ITS | Encounter Summary ---
Author Organization [facility] Address [address] [place] [address] Care Team Providers Care Centrifugal Operator Name Role Phone Rubén Boyle MD Primary Care Provider Pamela Blanco SET UP MOLD TECHNICIAN Unavailable [phone] Pedro Segura MD Unavailable Freddy Craft MD Unavailable [phone] Abdifatah Van MD Unavailable Nicole Carranza SET UP MOLD TECHNICIAN Unavailable [phone] Andressa Ruiz-C Unavailable [phone] Ashlyn Storm RN Unavailable [phone] Rubén Gunter [facility] Unavailable Andressa Ruiz-C Unavailable [phone] Suzan Harry MD Unavailable [phone] Yasmeen Powers MD Unavailable [phone] Yasmeen Powers MD Unavailable [phone] Encounter Details Date Type Department Care Team (Latest Contact Info) Description 04/08/2017 External Order Results [facility] [address] [place] [address] Long-term use of immunosuppressant medication; [...] Diagnosis Comments PHOSPHORUS Routine 04/06/2017 12:14 PM OUTSIDE MEDICAL SALES REPRESENTATIVE Long-term use of immunosuppressant medication Liver replaced by transplant (H) MAGNESIUM Routine 04/06/2017 12:14 PM OUTSIDE MEDICAL SALES REPRESENTATIVE Long-term use of immunosuppressant medication Liver replaced by transplant (H) HEPATIC FUNCTION PANEL Routine 04/06/2017 12:14 PM OUTSIDE MEDICAL SALES REPRESENTATIVE Long-term use of immunosuppressant medication Liver replaced by transplant (H) BASIC METABOLIC PANEL Routine 04/06/2017 12:14 PM OUTSIDE MEDICAL SALES REPRESENTATIVE Long-term use of immunosuppressant medication Liver replaced by transplant (H) CBC WITH PLATELETS Routine 04/06/2017 12 :14 PM OUTSIDE MEDICAL SALES REPRESENTATIVE Long-term use of immunosuppressant medication Liver replaced by transplant (H) documented in this encounter Results * Phosphorus (04/06/2017 12:14 PM OUTSIDE MEDICAL SALES REPRESENTATIVE) Phosphorus (External) 2.3 2.3 - 4.7 mg/dL LABDE SCAN Blood specimen (specimen) 04/06/2017 12:14 PM OUTSIDE MEDICAL SALES REPRESENTATIVE Narrative SAMANTHA PFT - 04/08/2017 4:18 PM OUTSIDE MEDICAL SALES REPRESENTATIVE Verified by Myrna Monreal on 04/08/2017. Aime Vu MD LAB - BLOOD ORDERA BLES BREEZE PFT LABDE SCAN * (ABNORMAL) Magnesium (04/06/2017 12:14 PM OUTSIDE MEDICAL SALES REPRESENTATIVE) Magnesium (External) 1.3(L) 1.6 - 2.6 mg/dL LABDE SCAN Blood specimen (specimen) 04/06/2017 12:14 PM OUTSIDE MEDICAL SALES REPRESENTATIVE Narrative BREEZE PFT - 04/08/2017 4:18 PM OUTSIDE MEDICAL SALES REPRESENTATIVE Verified by Myrna Monreal on 04/08/2017. Aime Vu MD LAB - BLOOD ORDERA BLES Performing Organization Address [facility] Co de Phone Number [facility] LABDE SC[facility] * Hepatic panel (04/06/2017 12:14 PM OUTSIDE MEDICAL SALES REPRESENTATIVE) Albumin (External) 4.0 3.2 - 4.6 g/dL [...] SCAN Blood specimen (specimen) 04/06/2017 12:14 PM OUTSIDE MEDICAL SALES REPRESENTATIVE Narrative [facility] - 04/08/2017 4:18 PM OUTSIDE MEDICAL SALES REPRESENTATIVE Verified by Myrna Monreal on 04/08/2017. Aime Vu MD LAB - BLOOD ORDERA BLES Performing Organization Address [facility] Co de Phone Number [facility] LABDE SCAN * (ABNORMAL) CBC with platelets (04/06/2017 12:14 PM OUTSIDE MEDICAL SALES REPRESENTATIVE) WBC Count (External) 2.7(L) 4.5 - 11.0 [...] SCAN Blood specimen (specimen) 04/06/2017 12:14 PM OUTSIDE MEDICAL SALES REPRESENTATIVE Narrative SAMANTHA PFT - 04/08/2017 4:18 PM OUTSIDE MEDICAL SALES REPRESENTATIVE Verified by Myrna Monreal on 04/08/2017. Aime Vu MD LAB - BLOOD ORDERA BLES SAMANTHA PFT LABDE SCAN * (ABNORMAL) Basic metabolic panel (04/06/2017 12:14 PM OUTSIDE MEDICAL SALES REPRESENTATIVE) Sodium (External) 139 135 - 145 mmol/L [...] SCAN Blood specimen (specimen) 04/06/2017 12:14 PM OUTSIDE MEDICAL SALES REPRESENTATIVE Narrative SAMANTHA PFT - 04/08/2017 4:18 PM OUTSIDE MEDICAL SALES REPRESENTATIVE Verified by Myrna Monreal on 04/08/2017. Aime [...] documented as of this encounter Care Teams Centrifugal Operator Relationship Specialty Start Date End Date Rubén Boyle MD PCP - General Family Practice 03/08/16 Pamela Blanco NP [facility] [address] [place], [place] [address] Referring Physician 07/13/16 Pedro Segura MD [facility] [address] [place], [place] [address]677 Nephrology 10/03/16 Freddy Craft MD 516 [facility] 2A [place], [place] [address] Assigned Gastroenterology Provider 02/08/20 Abdifatah Van MD 717 [facility] [address] [place], [place] [address]144 Assigned Nephrology Provider 07/13/20 11/07/23 Nicole Carranza NP [address] [place] [address] 508 [place] [address] Assigned Heart and Vascular Provider 01/09/22 Andressa Ruiz PA-C 420 [facility] 803 [place] [address] Physician Clinical Science Liaison Endocrinology, Diabetes, and Metabolism 03/01/22 Ashlyn Storm, RN [facility] 711 [place] [address] Registered Nurse 03/03/22 09/15/22 Rubén Gunter [facility] [address] [place] [address] Assigned MTM Pharmacist 02/27/22 Andressa Ruiz PA-C [address] [place] [address] 803 [place] [address] Assigned Endocrinology Provider 03/13/22 09/07/23 Suzan Harry MD [address] [place] [address] Nephrology 06/30/23 Yasmeen Powers MD 500 [place] [address] Nephrology 10/24/23 Yasmeen Powers MD 500 [place] [address] Assigned Nephrology Provider 11/08/23 documented as of this encounter
--- OUTSIDE RECORDS SUMMARY | 2024-01-17 17:30 | XMS_ITS | Encounter Summary ---
Author Organization [facility] Address [address] [place] [address] Care Team Providers Care Arboriculturist Name Role Phone Rubén Boyle MD Primary Care Provider Pamela Blanco HOME ECONOMICS EXPERT Unavailable Pedro Segura MD Unavailable [phone] Freddy Craft MD Unavailable [phone] Abdifatah Van MD Unavailable Nicole Carranza HOME ECONOMICS EXPERT Unavailable [phone] Andressa Ruiz-C Unavailable Ashlyn Storm RN Unavailable [phone] Rubén Gunter [facility] Unavailable Andressa Ruiz-C Unavailable Suzan Harry MD Unavailable [phone] Yasmeen Powers MD Unavailable [phone] Yasmeen Powers MD Unavailable [phone] Encounter Details Date Type Department Care Team (Latest Contact Info) Description 04/21/2017 External Order Results [facility] [address] [place] [address] Long-term use of immunosuppressant [...] Diagnosis Comments PHOSPHORUS Routine 04/19/2017 9:45 AM TRASH COLLECTOR Long-term use of immunosuppressant medication Liver replaced by transplant (H) MAGNESIUM Routine 04/19/2017 9:45 AM TRASH COLLECTOR Long-term use of immunosuppressant medication Liver replaced by transplant (H) HEPATIC FUNCTION PANEL Routine 04/19/2017 9:45 AM TRASH COLLECTOR Long-term use of immunosuppressant medication Liver replaced by transplant (H) BASIC METABOLIC PANEL Routine 04/19/2017 9:45 AM TRASH COLLECTOR Long-term use of immunosuppressant medication Liver replaced by transplant (H) CBC WITH PLATELETS Routine 04/19/2017 9: 45 AM TRASH COLLECTOR Long-term use of immunosuppressant medication Liver replaced by transplant (H) documented in this encounter Results * Phosphorus (04/19/2017 9:45 AM TRASH COLLECTOR) Phosphorus (External) 2.7 2.3 - 4.7 mg/dL LABDE SCAN Blood specimen (specimen) 04/19/2017 9:45 AM TRASH COLLECTOR Narrative SAMANTHA PFT - 04/21/2017 2:28 PM TRASH COLLECTOR Verified by Myrna Monreal on 04/21/2017. Aime Vu MD LAB - BLOOD ORDERA BLES SAMANTHA PFT LABDE SCAN * (ABNORMAL) Magnesium (04/19/2017 9:45 AM TRASH COLLECTOR) Magnesium (External) 1.5(L) 1.6 - 2.6 mg/dL LABDE SCAN Blood specimen (specimen) 04/19/2017 9:45 AM TRASH COLLECTOR [facility] ERICKE PFT - 04/21/2017 2:28 PM TRASH COLLECTOR Verified by Myrna Monreal on 04/21/2017. Aime Vu MD LAB - BLOOD ORDERA BLES Performing Organization Address [facility] de Phone Number [facility] PFT LABDE SCAN * Hepatic panel (04/19/2017 9:45 AM TRASH COLLECTOR) Albumin (External) 3.9 3.2 - 4.6 g/dL [...] SCAN Blood specimen (specimen) 04/19/2017 9:45 AM TRASH COLLECTOR [facility] PFT - 04/21/2017 2:28 PM TRASH COLLECTOR Verified by Myrna Monreal on 04/21/2017. Aime Vu MD LAB - BLOOD ORDERA BLEMarkel Performing Organization Address [facility] Co de Phone Number [facility] LABDE SCAN * (ABNORMAL) CBC with platelets (04/19/2017 9:45 AM TRASH COLLECTOR) WBC Count (External) 2.7(L) 4.5 - 11.0 [...] SCAN Blood specimen (specimen) 04/19/2017 9:45 AM TRASH COLLECTOR Narrative AMNAE PFT - 04/21/2017 2:28 PM TRASH COLLECTOR Verified by Myrna Monreal on 04/21/2017. Aime Vu MD LAB - BLOOD ORDERA BLES SAMANTHA PFT LABDE SCAN * (ABNORMAL) Basic metabolic panel (04/19/2017 9:45 AM TRASH COLLECTOR) Sodium (External) 136 135 - 145 mmol/L [...] SCAN Blood specimen (specimen) 04/19/2017 9:45 AM TRASH COLLECTOR Narrative BREEZE PFT - 04/21/2017 2:28 PM TRASH COLLECTOR Verified by Myrna Monreal on 04/21/2017. Aime [...] documented as of this encounter Care Teams Arboriculturist Relationship Specialty Start Date End Date Rubén Boyle MD PCP - General Family Practice 03/08/16 Pamela Blanco HOME ECONOMICS EXPERT [facility] [address] [place], [place] [address] Referring Physician 07/13/[address] [facility] [address] [place], [place] [address] Nephrology 10/03/16 Freddy Craft MD [facility] 2[facility] [place] [address] Assigned Gastroenterology Provider 02/08/20 Abdifatah Van MD 717 [facility] [address] [place] [address] Assigned Nephrology Provider 07/13/20 11/07/23 Nicole Carranza NP 420 [facility] [address] [place] [address] Assigned Heart and Vascular Provider 01/09/22 Andressa Ruiz PA-C 420 [facility] 803 [place] [address] Physician Clinical Laboratory Science Professor Endocrinology, Diabetes, and Metabolism 03/01/22 Ashlyn Storm, RN [facility] 711 [place] [address] Registered Nurse 03/03/22 09/15/22 Rubén Gunter [facility] [address] [place] [address] Assigned MTM Pharmacist 02/27/22 Andressa Ruiz PA-C 420 [facility] 803 [place] [address] Assigned Endocrinology Provider 03/13/22 09/07/23 Suzan Harry MD [address] [place] [address] Nephrology 06/30/23 Yasmeen Powers MD 500 [place] [address] Nephrology 10/24/23 Yasmeen Powers MD 500 [place] [address] Assigned Nephrology Provider 11/08/23 documented as of this encounter
--- OUTSIDE RECORDS SUMMARY | 2024-01-17 17:30 | XMS_ITS | Encounter Summary ---
Author Organization [facility] Address [address] [place] [address] Care Team Providers Care White Sugar Supervisor Name Role Phone Rubén Boyle MD Primary Care Provider [phone] Pamela Blanco AUTOMOTIVE COLLISION ESTIMATOR Unavailable Pedro Segura MD Unavailable [phone] Freddy Craft MD Unavailable Abdifatah Van MD Unavailable Nicole Carranza AUTOMOTIVE COLLISION ESTIMATOR Unavailable [phone] Andressa Ruiz-C Unavailable Ashlyn Storm RN Unavailable [phone] Rubén Gunter [facility] Unavailable Andressa Ruiz-C Unavailable Suzan Harry MD Unavailable [phone] Yasmeen Powers MD Unavailable Yasmeen Powers MD Unavailable [phone] Encounter Details Date Type Department Care Team (Latest Contact Info) Description 05/04/2017 External Order Results [facility] [address] [place] [address] Long-term use of immunosuppressant medication; [...] TANDEM MASS SPECTROMETRY Routine 05/03/2017 9:10 AM PAPER MILL SUPERVISOR Liver replaced by transplant (H) 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 transplant long-term use of drug PHOSPHORUS Routine 05/03/2017 9:10 AM PAPER MILL SUPERVISOR Long-term use of immunosuppressant medication Liver replaced by transplant (H) MAGNESIUM Routine 05/03/2017 9:10 AM PAPER MILL SUPERVISOR Long-term use of immunosuppressant medication Liver replaced by transplant (H) HEPATIC FUNCTION PANEL Routine 05/03/2017 9:10 AM PAPER MILL SUPERVISOR Long-term use of immunosuppressant medication Liver replaced by transplant (H) DIFFERENTIAL Routine 05/03/2017 9:10 AM PAPER MILL SUPERVISOR BASIC METABOLIC PANEL Routine 05/03/2017 9:10 AM PAPER MILL SUPERVISOR Long-term use of immunosuppressant medication Liver replaced by transplant (H) CBC WITH PLATELETS Routine 05/03/2017 9: 10 AM PAPER MILL SUPERVISOR Long-term use of immunosuppressant medication Liver replaced by transplant (H) documented in this encounter Results * Tacrolimus level (05/03/2017 9:10 AM PAPER MILL SUPERVISOR) Tacrolimus(FK-5 06) (External) 8.2 ng/mL LABDE SCAN Tacrolimus Last Dose (External) 05/02/2017 at 2000 LABDE SCAN Blood specimen (specimen) 05/03/2017 9:10 AM PAPER MILL SUPERVISOR Narrative BREEZE PFT - 05/05/2017 2:00 PM PAPER MILL SUPERVISOR Verified by Cruzito Marlow on 05/05/2017. Freddy Dumont MD LAB - BLOOD ORD ERABLES AMNAE PFT LABDE SCAN * (ABNORMAL) WBC Differential (05/03/2017 9:10 AM PAPER MILL SUPERVISOR) Method (External) Manual Diff LABDE SCAN % [...] SCAN Blood specimen (specimen) 05/03/2017 9:10 AM PAPER MILL SUPERVISOR Narrative SAMANTHA PFT - 05/04/2017 7:58 AM PAPER MILL SUPERVISOR Verified by Cruzito Marlow on 05/04/2017. Patient Reported LAB - BLOOD ORDERABL ES BREEZE PFT LABDE SCAN * (ABNORMAL) CBC with platelets (05/03/2017 9:10 AM PAPER MILL SUPERVISOR) WBC Count (External) 1.9(LL) 4.5 - 11.0 [...] SCAN Blood specimen (specimen) 05/03/2017 9:10 AM PAPER MILL SUPERVISOR Narrative BREEZE PFT - 05/04/2017 7:58 AM PAPER MILL SUPERVISOR Verified by Cruzito Marlow on 05/04/2017. Aime Vu MD LAB - BLOOD ORDERA BLES Performing Organization Address City/[facility]/ZIP Co de Phone Number BREEZE PFT LABDE SCAN * Phosphorus (05/03/2017 9:10 AM PAPER MILL SUPERVISOR) Phosphorus (External) 3.9 2.3 - 4.7 mg/dL LABDE SCAN Blood specimen (specimen) 05/03/2017 9:10 AM PAPER MILL SUPERVISOR Narrative BREEZE PFT - 05/04/2017 7:58 AM PAPER MILL SUPERVISOR Verified by Cruzito Marlow on 05/04/2017. Aime Vu MD LAB - BLOOD ORDERA BLES BREEZE PFT LABDE SCAN * Magnesium (05/03/2017 9:10 AM PAPER MILL SUPERVISOR) Magnesium (External) 1.8 1.6 - 2.6 mg/dL LABDE SCAN Blood specimen (specimen) 05/03/2017 9:10 AM PAPER MILL SUPERVISOR Narrative BREEZE PFT - 05/04/2017 7:58 AM PAPER MILL SUPERVISOR Verified by Cruzito Marlow on 05/04/2017. Aime Vu MD LAB - BLOOD ORDERA BLES Performing Organization Address [facility] de Phone Number SAMANTHA PFT LABDE SCAN * (ABNORMAL) Hepatic panel (05/03/2017 9:10 AM PAPER MILL SUPERVISOR) Albumin (External) 3.7 3.2 - 4.6 g/dL [...] SCAN Blood specimen (specimen) 05/03/2017 9:10 AM PAPER MILL SUPERVISOR Narrative SAMANTHA PFT - 05/04/2017 7:58 AM PAPER MILL SUPERVISOR Verified by Cruzito Marlow on 05/04/2017. Aime Vu MD LAB - BLOOD ORDERA BLES Performing Organization Address [facility] de Phone Number SAMANTHA PFT LABDE SCAN * (ABNORMAL) Basic metabolic panel (05/03/2017 9:10 AM PAPER MILL SUPERVISOR) Sodium (External) 138 135 - 145 mmol/L [...] SCAN Blood specimen (specimen) 05/03/2017 9:10 AM PAPER MILL SUPERVISOR Narrative SAMANTHA PFT - 05/04/2017 7:58 AM PAPER MILL SUPERVISOR Verified by Cruzito Marlow on 05/04/2017. Aime [...] documented as of this encounter Care Teams White Sugar Supervisor Relationship Specialty Start Date End Date Rubén Boyle MD PCP - General Family Practice 03/08/16 Pamela Blanco NP [facility] [address] [place], [place] 408[address] Referring Physician 07/13/16 Pedro Segura MD [facility] [address] [place], [place] 7625[address] Nephrology 10/03/16 Fredyd Craft MD [address] [place] [address] [id number] Assigned Gastroenterology Provider 02/08/20 Abdifatah Van MD 717 [facility] [address] [place] [address] Assigned Nephrology Provider 07/13/20 11/07/23 Nicole Carranza NP 420 [facility] [address] [place] [address] Assigned Heart and Vascular Provider 01/09/22 Andressa Ruiz PA-C 420 [facility] 803 [place], [place] 44[address] Physician Chef De Cuisine Endocrinology, Diabetes, and Metabolism 03/01/22 Ashlyn Storm RN [facility] 711 [place], [place] 490664 Registered Nurse 03/03/22 09/15/22 Rubén Gunter [facility] [address] [place] [address] 886915 Assigned MTM Pharmacist 02/27/22 Andressa Ruiz PA-C 420 [facility] 803 [place] [address] Assigned Endocrinology Provider 03/13/22 09/07/23 Suzan Harry MD 420 [place] [address] Nephrology 06/30/23 Yasmeen Powers MD [address] [place] [address] Nephrology 10/24/23 Yasmeen Powers MD 500 [place] [address] Assigned Nephrology Provider 11/08/23 documented as of this encounter
--- OUTSIDE RECORDS SUMMARY | 2024-01-17 17:30 | XMS_ITS | Encounter Summary ---
Author Organization [facility] Address [address] [place] [address] Care Team Providers Care Lacquer Pin Press Operator Name Role Phone Rubén Boyle MD Primary Care Provider Pamela Blanco VIDEO PHOTOGRAPHER Unavailable Pedro Segura MD Unavailable [phone] Freddy Craft MD Unavailable Abdifatah Van MD Unavailable Nicole Carranza VIDEO PHOTOGRAPHER Unavailable [phone] Andressa Ruiz-C Unavailable Ashlyn Storm RN Unavailable Rubén Gunter [facility] Unavailable Andressa Ruiz-C Unavailable Suzan Harry MD Unavailable [phone] Yasmeen Powers MD Unavailable Yasmeen Powers MD Unavailable [phone] Encounter Details Date Type Department Care Team (Latest Contact Info) Description 04/28/2017 External Order Results [facility] [address] [place] [address] Long-term use of immunosuppressant medication; [...] TANDEM MASS SPECTROMETRY Routine 04/26/2017 8:55 AM SHAREPOINT SPECIALIST Long-term use of immunosuppressant medication Liver replaced by transplant (H) documented in this encounter Results * Tacrolimus level (04/26/2017 8:55 AM SHAREPOINT SPECIALIST) Tacrolimus(FK-5 06) (External) 9.2 ng/mL LABDE SCAN Tacrolimus Last Dose (External) 04/25/2017 at 2000 LABDE SCAN Blood specimen (specimen) 04/26/2017 8:55 AM SHAREPOINT SPECIALIST Narrative SAMANTHA PFT - 04/28/2017 3:36 PM SHAREPOINT SPECIALIST Verified by Rhiannon Cain on 04/28/2017. Aime [...] documented as of this encounter Care Teams Lacquer Pin Press Operator Relationship Specialty Start Date End Date Rubén Boyle MD PCP - General Family Practice 03/08/16 Pamela Blanco NP [facility] [address] [place] [address] Referring Physician 07/13/16 Pedro Segura MD [facility] [address] [place] [address] Nephrology 10/03/16 Freddy Craft MD 516 [facility] [place], [place] [address] Assigned Gastroenterology Provider 02/08/20 Abdifatah Van MD 717 [facility] [address] [place], [place] 9[address]494 Assigned Nephrology Provider 07/13/20 11/07/23 Nicole Carranza NP 420 [facility] [address] [place], [place] 262345 Assigned Heart and Vascular Provider 01/09/22 Andressa Ruiz PA-C 420 [facility] [address] [place], [place] [address] Physician Spray Painter Endocrinology, Diabetes, and Metabolism 03/01/22 Ashlyn Storm, RN [facility] 711 [place], [place] 118404 Registered Nurse 03/03/22 09/15/22 Rubén Gunter [facility] 909 [facility] [address] [place], [place] 32[address] Assigned MTM Pharmacist 02/27/22 Andressa Ruiz PA-C 420 [facility] 803 [place] [address] Assigned Endocrinology Provider 03/13/22 09/07/23 Suzan Harry MD 420 [place] [address] Nephrology 06/30/23 Yasmeen Powers MD 500 [place] [address] Nephrology 10/24/23 Yasmeen Powers MD 500 [place] [address] Assigned Nephrology Provider 11/08/23 documented as of this encounter
--- OUTSIDE RECORDS SUMMARY | 2024-01-17 17:30 | XMS_ITS | Encounter Summary ---
Author Organization [facility] Address [address] [place] [address] Care Team Providers Care Social Worker Masters Name Role Phone Rubén Boyle MD Primary Care Provider Pamela Blanco LOCKER ROOM ATTENDANT Unavailable Pedro Segura MD Unavailable [phone] Freddy Craft MD Unavailable Abdifatah Van MD Unavailable Nicole Carranza LOCKER ROOM ATTENDANT Unavailable [phone] Andressa Ruiz-C Unavailable Ashlyn Storm RN Unavailable [phone] Rubén Gunter [facility] Unavailable Andressa Ruiz-C Unavailable Suzan Harry MD Unavailable [phone] Yasmeen Powers MD Unavailable [phone] Yasmeen Powers MD Unavailable [phone] Encounter Details Date Type Department Care Team (Latest Contact Info) Description 04/14/2017 External Order Results [facility] [address] [place] [address] Long-term use of immunosuppressant medication; [...] Diagnosis Comments PHOSPHORUS Routine 04/12/2017 8:32 AM SOLAR ENERGY TECHNICIAN Long-term use of immunosuppressant medication Liver replaced by transplant (H) MAGNESIUM Routine 04/12/2017 8:32 AM SOLAR ENERGY TECHNICIAN Long-term use of immunosuppressant medication Liver replaced by transplant (H) HEPATIC FUNCTION PANEL Routine 04/12/2017 8:32 AM SOLAR ENERGY TECHNICIAN Long-term use of immunosuppressant medication Liver replaced by transplant (H) BASIC METABOLIC PANEL Routine 04/12/2017 8:32 AM SOLAR ENERGY TECHNICIAN Long-term use of immunosuppressant medication Liver replaced by transplant (H) CBC WITH PLATELETS Routine 04/12/2017 8: 32 AM SOLAR ENERGY TECHNICIAN Long-term use of immunosuppressant medication Liver replaced by transplant (H) documented in this encounter Results * (ABNORMAL) Phosphorus (04/12/2017 8:32 AM SOLAR ENERGY TECHNICIAN) Phosphorus (External) 2.1(L) 2.3 - 4.7 mg/dL LABDE SCAN Blood specimen (specimen) 04/12/2017 8:32 AM SOLAR ENERGY TECHNICIAN Narrative AMNAKayli PFT - 04/14/2017 8:49 AM SOLAR ENERGY TECHNICIAN Verified by Myrna Monreal on 04/14/2017. Aime Vu MD LAB - BLOOD ORDERA BLEMarkel ERICKCARISA PFT LABDE SCAN * Magnesium (04/12/2017 8:32 AM SOLAR ENERGY TECHNICIAN) Magnesium (External) 1.9 1.6 - 2.6 mg/dL LABDE SCAN Blood specimen (specimen) 04/12/2017 8:32 AM SOLAR ENERGY TECHNICIAN Narrative BREEZE PFT - 04/14/2017 8:49 AM SOLAR ENERGY TECHNICIAN Verified by Myrna Monreal on 04/14/2017. Aime Vu MD LAB - BLOOD ORDERA BLES Performing Organization Address [facility] Co de Phone Number [facility] LABDE [facility] * Hepatic panel (04/12/2017 8:32 AM SOLAR ENERGY TECHNICIAN) Albumin (External) 4.0 3.2 - 4.6 g/dL [...] SCAN Blood specimen (specimen) 04/12/2017 8:32 AM SOLAR ENERGY TECHNICIAN Narrative AMNAE PFT - 04/14/2017 8:48 AM SOLAR ENERGY TECHNICIAN Verified by Myrna Monreal on 04/14/2017. Aime Vu MD LAB - BLOOD ORDERA BLEMarkel Performing Organization Address [facility] Co de Phone Number [facility] LABDE SCAN * (ABNORMAL) CBC with platelets (04/12/2017 8:32 AM SOLAR ENERGY TECHNICIAN) WBC Count (External) 2.7(L) 4.5 - [...] SCAN Blood specimen (specimen) 04/12/2017 8:32 AM SOLAR ENERGY TECHNICIAN Narrative BREEZE PFT - 04/14/2017 8:48 AM SOLAR ENERGY TECHNICIAN Verified by Myrna Monreal on 04/14/2017. Aiem Vu MD LAB - BLOOD ORDERA BLES BREEZE PFT LABDE SCAN * (ABNORMAL) Basic metabolic panel (04/12/2017 8:32 AM SOLAR ENERGY TECHNICIAN) Sodium (External) 141 135 - 145 mmol/L [...] SCAN Blood specimen (specimen) 04/12/2017 8:32 AM SOLAR ENERGY TECHNICIAN Narrative BREEZE PFT - 04/14/2017 8:48 AM SOLAR ENERGY TECHNICIAN Verified by Myrna Monreal on 04/14/2017. Aime [...] documented as of this encounter Care Teams Social Worker Masters Relationship Specialty Start Date End Date Rubén Boyle MD PCP - General Family Practice 03/08/16 Pamela Blanco NP [facility] [address] [place], [place] 8[address] Referring Physician 07/13/16 Pedro Segura MD [facility] [address] [place], [place] 45[address] Nephrology 10/03/16 Freddy Craft MD 516 [facility] [address] [place] [address] Assigned Gastroenterology Provider 02/08/20 Abdifatah Van MD 717 [facility] [address] [place] [address] Assigned Nephrology Provider 07/13/20 11/07/23 Nicole Carranza NP 420 [facility] [address] [place], [place] [phone] Assigned Heart and Vascular Provider 01/09/22 Andressa Ruiz PA-C 420 [facility] 803 [place] [address] Physician Iron Miner Blasting Endocrinology, Diabetes, and Metabolism 03/01/22 Ashlyn Storm, RN [facility] 7[address] [place] [address] Registered Nurse 03/03/22 09/15/22 Rubén Gunter [facility] [address] [place] [address] Assigned MTM Pharmacist 02/27/22 Andressa Ruiz PA-C 420 [facility] 803 [place] [address] Assigned Endocrinology Provider 03/13/22 09/07/23 Suzan Harry MD [address] [place] [address] Nephrology 06/30/23 Yasmeen Powers MD 500 [place] [address] Nephrology 10/24/23 Yasmeen Powers MD 500 [place] [address] Assigned Nephrology Provider 11/08/23 documented as of this encounter
--- OUTSIDE RECORDS SUMMARY | 2024-01-17 17:30 | XMS_ITS | Encounter Summary ---
Author Organization [facility] Address [address] [place] [address] Care Team Providers Care Automated Logistics Specialist Name Role Phone Rubén Boyle MD Primary Care Provider Pamela Blanco MASTER MERCHANDISER Unavailable Pedro Seguar MD Unavailable Freddy Craft MD Unavailable Abdifatah Van MD Unavailable Nicole Carranza MASTER MERCHANDISER Unavailable [phone] Andressa Ruiz-C Unavailable [phone] Ashlyn Storm RN Unavailable [phone] Rubén Gunter [facility] Unavailable Andressa Ruiz-C Unavailable Suzan Harry MD Unavailable [phone] Yasmeen Powers MD Unavailable [phone] Yasmeen Powers MD Unavailable [phone] Encounter Details Date Type Department Care Team (Latest Contact Info) Description 04/27/2017 External Order Results [facility] [address] [place] [address] Long-term use of immunosuppressant medication; [...] Diagnosis Comments PHOSPHORUS Routine 04/26/2017 8:55 AM UKRAINIAN FOLK ARTS INSTRUCTOR Long-term use of immunosuppressant medication Liver replaced by transplant (H) MAGNESIUM Routine 04/26/2017 8:55 AM UKRAINIAN FOLK ARTS INSTRUCTOR Long-term use of immunosuppressant medication Liver replaced by transplant (H) HEPATIC FUNCTION PANEL Routine 04/26/2017 8:55 AM UKRAINIAN FOLK ARTS INSTRUCTOR Long-term use of immunosuppressant medication Liver replaced by transplant (H) BASIC METABOLIC PANEL Routine 04/26/2017 8:55 AM UKRAINIAN FOLK ARTS INSTRUCTOR Long-term use of immunosuppressant medication Liver replaced by transplant (H) CBC WITH PLATELETS Routine 04/26/2017 8: 55 AM UKRAINIAN FOLK ARTS INSTRUCTOR Long-term use of immunosuppressant medication Liver replaced by transplant (H) documented in this encounter Results * Phosphorus (04/26/2017 8:55 AM UKRAINIAN FOLK ARTS INSTRUCTOR) Phosphorus (External) 3.9 2.3 - 4.7 mg/dL LABDE SCAN Blood specimen (specimen) 04/26/2017 8:55 AM UKRAINIAN FOLK ARTS INSTRUCTOR Narrative SAMANTHA PFT - 04/27/2017 6:23 PM UKRAINIAN FOLK ARTS INSTRUCTOR Verified by Myrna Monreal on 04/27/2017. Aime Vu MD LAB - BLOOD ORDERA BLES SAMANTHA PFT LABDE SCAN * Magnesium (04/26/2017 8:55 AM UKRAINIAN FOLK ARTS INSTRUCTOR) Magnesium (External) 1.9 1.6 - 2.6 mg/dL LABDE SCAN Blood specimen (specimen) 04/26/2017 8:55 AM UKRAINIAN FOLK ARTS INSTRUCTOR [facility] PFT - 04/27/2017 6:23 PM UKRAINIAN FOLK ARTS INSTRUCTOR Verified by Myrna Monreal on 04/27/2017. Aime Vu MD LAB - BLOOD ORDERA BLES Performing Organization Address [facility] de Phone Number [facility] LABDE SCAN * Hepatic panel (04/26/2017 8:55 AM UKRAINIAN FOLK ARTS INSTRUCTOR) Albumin (External) 3.8 3.2 - 4.6 g/dL [...] SCAN Blood specimen (specimen) 04/26/2017 8:55 AM UKRAINIAN FOLK ARTS INSTRUCTOR [facility] PFT - 04/27/2017 6:23 PM UKRAINIAN FOLK ARTS INSTRUCTOR Verified by Myrna Monreal on 04/27/2017. Aime Vu MD LAB - BLOOD ORDERA BLES Performing Organization Address [facility] de Phone Number [facility]FT LABDE SCAN * (ABNORMAL) CBC with platelets (04/26/2017 8:55 AM UKRAINIAN FOLK ARTS INSTRUCTOR) WBC Count (External) 2.2(L) 4.5 - 11.0 [...] SCAN Blood specimen (specimen) 04/26/2017 8:55 AM UKRAINIAN FOLK ARTS INSTRUCTOR Narrative SAMANTHA PFT - 04/27/2017 6:23 PM UKRAINIAN FOLK ARTS INSTRUCTOR Verified by Myrna Monreal on 04/27/2017. Aime Vu MD LAB - BLOOD ORDERA BLES SAMANTHA PFT LABDE SCAN * (ABNORMAL) Basic metabolic panel (04/26/2017 8:55 AM UKRAINIAN FOLK ARTS INSTRUCTOR) Sodium (External) 138 135 - 145 mmol/L [...] SCAN Blood specimen (specimen) 04/26/2017 8:55 AM UKRAINIAN FOLK ARTS INSTRUCTOR Narrative SAMANTHA PFT - 04/27/2017 6:23 PM UKRAINIAN FOLK ARTS INSTRUCTOR Verified by Myrna Monreal on 04/27/2017. Aime [...] documented as of this encounter Care Teams Automated Logistics Specialist Relationship Specialty Start Date End Date Rubén Boyle MD PCP - General Family Practice 03/08/16 Pamela Blanco NP [facility] [address] [place], [place] [address] Referring Physician 07/13/16 Pedro Segura MD [facility] [address] [place] [address] Nephrology 10/03/16 Freddy Craft MD 516 [facility] [address] [place] [address] Assigned Gastroenterology Provider 02/08/20 Abdifatah Van MD [address] [facility] [address] [place] [address] Assigned Nephrology Provider 07/13/20 11/07/23 Nicole Carranza NP 420 [facility] [address] [place] [address] Assigned Heart and Vascular Provider 01/09/22 Andressa Ruiz PA-C 420 [facility] 803 [place], [place] [address] Physician Surveyor Geophysical Prospecting Endocrinology, Diabetes, and Metabolism 03/01/22 Ashlyn Storm RN [facility] 711 [place] [address] Registered Nurse 03/03/22 09/15/22 Rubén Gunter [facility] [address] [place] [address] Assigned MTM Pharmacist 02/27/22 Andressa Ruiz PA-C [address] [address] Assigned Endocrinology Provider 03/13/22 09/07/23 Suzan Harry MD 420 [place], [place] [address] Nephrology 06/30/23 Yasmeen Powers MD 500 [place] [address] Nephrology 10/24/23 Yasmeen Powers MD [address] [place] [address] Assigned Nephrology Provider 11/08/23 documented as of this encounter
--- OUTSIDE RECORDS SUMMARY | 2024-01-17 17:30 | XMS_ITS | Encounter Summary ---
Author Organization [facility] Address [address] [place] [address] Care Team Providers Care Rn Review Name Role Phone Rubén Boyle MD Primary Care Provider Pamela Blanco AVID EDITOR Unavailable Pedro Segura MD Unavailable Freddy Craft MD Unavailable Abdifatah Van MD Unavailable Nicole Carranza AVID EDITOR Unavailable [phone] Andressa Ruiz-C Unavailable Ashlyn Storm RN Unavailable [phone] Rubén Gunter [facility] Unavailable Andressa Ruiz-C Unavailable Suzan Harry MD Unavailable [phone] Yasmeen Powers MD Unavailable [phone] Yasmeen Powers MD Unavailable [phone] Encounter Details Date Type Department Care Team (Latest Contact Info) Description 04/06/2017 External Order Results [facility] [address] [place] [address] Liver replaced by transplant (H); 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 transplant; medical terminologist use of drug Social History Tobacco Use [...] TANDEM MASS SPECTROMETRY Routine 04/05/2017 8:00 AM READING COACH Liver replaced by transplant (H) 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 transplant [facility] use of drug documented in this encounter Results * Tacrolimus level (04/05/2017 8:00 AM READING COACH) Tacrolimus(FK-5 06) (External) 13.0 ng/mL LABDE SCAN Tacrolimus Last Dose (External) Not given LABDE SCAN Blood specimen (specimen) 04/05/2017 8:00 AM READING COACH Narrative SAMANTHA PFT - 04/07/2017 3:48 PM READING COACH Verified by Cruzito Marlow on 04/07/2017. 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/16 urine, 07/10/16 rectal swab 06/21/2016 06/21/2016 documented as of this encounter Care Teams Rn Review Relationship Specialty Start Date End Date Rubén Boyle MD PCP - General Family Practice 03/08/16 Pamela Blanco AVID EDITOR [facility] [address] [place] [address] Referring Physician 07/13/16 Pedro Segura MD [facility] [address] [place] [address] Nephrology 10/03/16 Freddy Craft MD 516 [facility] [place], [place] [address] Assigned Gastroenterology Provider 02/08/20 Abdifatah Van MD 717 [facility] [address] [place] [address] Assigned Nephrology Provider 07/13/20 11/07/23 Nicole Carranza NP 420 [facility] 508 [place], [place] [address] Assigned Heart and Vascular Provider 01/09/22 Andressa Ruiz PA-C 420 [facility] 803 [place], [place] [address] Physician Client Solutions Manager Endocrinology, Diabetes, and Metabolism 03/01/22 Ashlyn Storm, RN [facility] 711 [place] [address] Registered Nurse 03/03/22 09/15/22 Rubén Gunter [facility] 9[address] [facility] [place] [address] Assigned MTM Pharmacist 02/27/22 Andressa Ruiz PA-C 420 [facility] 803 [place] [address] Assigned Endocrinology Provider 03/13/22 09/07/23 Suzan Harry MD 420 [place] [address] Nephrology 06/30/23 Yasmeen Powers MD 500 [place] [address] Nephrology 10/24/23 Yasmeen Powers MD 500 [place] [address] Assigned Nephrology Provider 11/08/23 documented as of this encounter
--- OUTSIDE RECORDS SUMMARY | 2024-01-17 17:30 | XMS_ITS | Encounter Summary ---
Author Organization [facility] Address [address] [place] [address] Care Team Providers Care Managing Partner Name Role Phone Rubén Boyle MD Primary Care Provider [phone] Pamela Blanco PATTERN GRADER SUPERVISOR Unavailable [phone] Pedro Segura MD Unavailable Freddy Craft MD Unavailable [phone] Abdifatah Van MD Unavailable Nicole Carranza PATTERN GRADER SUPERVISOR Unavailable [phone] Andressa Ruiz-C Unavailable Ashlyn Storm RN Unavailable [phone] Rubén Gunter [facility] Unavailable Andressa Ruiz-C Unavailable Suzan Harry MD Unavailable [phone] Yasmeen Powers MD Unavailable [phone] Yasmeen Powers MD Unavailable [phone] Encounter Details Date Type Department Care Team (Latest Contact Info) Description 05/19/2017 External Order Results [facility] [address] [place] [address] Long-term use of immunosuppressant medication; [...] TANDEM MASS SPECTROMETRY Routine 05/16/2017 8:57 AM PHYSICAL AERODYNAMICIST Long-term use of immunosuppressant medication Liver replaced by transplant (H) PHOSPHORUS Routine 05/16/2017 8:57 AM PHYSICAL AERODYNAMICIST Long-term use of immunosuppressant medication Liver replaced by transplant (H) MAGNESIUM Routine 05/16/2017 8:57 AM PHYSICAL AERODYNAMICIST Long-term use of immunosuppressant medication Liver replaced by transplant (H) HEPATIC FUNCTION PANEL Routine 05/16/2017 8:57 AM PHYSICAL AERODYNAMICIST Long-term use of immunosuppressant medication Liver replaced by transplant (H) BASIC METABOLIC PANEL Routine 05/16/2017 8:57 AM PHYSICAL AERODYNAMICIST Long-term use of immunosuppressant medication Liver replaced by transplant (H) CBC WITH PLATELETS Routine 05/16/2017 8: 57 AM PHYSICAL AERODYNAMICIST Long-term use of immunosuppressant medication Liver replaced by transplant (H) documented in this encounter Results * Tacrolimus level (05/16/2017 8:57 AM PHYSICAL AERODYNAMICIST) Tacrolimus(FK-5 06) (External) 7.3 5 - 8 ng/mL LABDE SCAN Tacrolimus Last Dose (External) Not given LABDE SCAN Blood specimen (specimen) 05/16/2017 8:57 AM PHYSICAL AERODYNAMICIST Narrative SAMANTHA PFT - 05/19/2017 8:13 PM PHYSICAL AERODYNAMICIST Verified by Myrna Monreal on 05/19/2017. Varvara A Mirella MD LAB - BLOOD ORDERA BLES Performing Organization Address City/[facility]/ZIP Co de Phone Number BREEZE PFT LABDE SCAN * Hepatic panel (05/16/2017 8:57 AM PHYSICAL AERODYNAMICIST) Albumin (External) 3.7 3.2 - 4.6 g/dL [...] SCAN Blood specimen (specimen) 05/16/2017 8:57 AM PHYSICAL AERODYNAMICIST Narrative BREEZE PFT - 05/19/2017 4:56 AM PHYSICAL AERODYNAMICIST Verified by Rhiannon Cain on 05/19/2017. Aime Vu MD LAB - BLOOD ORDERA BLES Performing Organization Address [facility] Co de Phone Number BREEZE PFT LABDE SCAN * Magnesium (05/16/2017 8:57 AM PHYSICAL AERODYNAMICIST) Magnesium (External) 1.7 1.6 - 2.6 mg/dL LABDE SCAN Blood specimen (specimen) 05/16/2017 8:57 AM PHYSICAL AERODYNAMICIST Narrative BREEZE PFT - 05/19/2017 4:56 AM PHYSICAL AERODYNAMICIST Verified by Rhiannon Cain on 05/19/2017. Aime Vu MD LAB - BLOOD ORDERA BLES Performing Organization Address City/[facility]/ZIP Co de Phone Number BREEZE PFT LABDE SCAN * Phosphorus (05/16/2017 8:57 AM PHYSICAL AERODYNAMICIST) Phosphorus (External) 3.4 2.3 - 4.7 mg/dL LABDE SCAN Blood specimen (specimen) 05/16/2017 8:57 AM PHYSICAL AERODYNAMICIST Narrative BREEZE PFT - 05/19/2017 4:56 AM PHYSICAL AERODYNAMICIST Verified by Rhiannon Cain on 05/19/2017. Aime Vu MD LAB - BLOOD ORDERA BLES Performing Organization Address [facility] Co de Phone Number BREEZE PFT LABDE SCAN * (ABNORMAL) Basic metabolic panel (05/16/2017 8:57 AM PHYSICAL AERODYNAMICIST) Sodium (External) 140 135 - 145 mmol/L [...] SCAN Blood specimen (specimen) 05/16/2017 8:57 AM PHYSICAL AERODYNAMICIST Narrative BREEZE PFT - 05/19/2017 4:56 AM PHYSICAL AERODYNAMICIST Verified by Rhiannon Cain on 05/19/2017. Aime Vu MD LAB - BLOOD ORDERA BLES Performing Organization Address [facility]/ZIP Co de Phone Number BREEZE PFT LABDE SCAN * (ABNORMAL) CBC with platelets (05/16/2017 8:57 AM PHYSICAL AERODYNAMICIST) WBC Count (External) 2.1(L) 4.5 - 110 [...] SCAN Blood specimen (specimen) 05/16/2017 8:57 AM PHYSICAL AERODYNAMICIST Narrative SAMANTHA PFT - 05/19/2017 4:56 AM PHYSICAL AERODYNAMICIST Verified by Rhiannon Cain on 05/19/2017. Aime [...] documented as of this encounter Care Teams Managing Partner Relationship Specialty Start Date End Date Rubén Boyle MD PCP - General Family Practice 03/08/16 Pamela Blanco PATTERN GRADER SUPERVISOR [facility] [address] [place] [address] Referring Physician 07/13/16 Pedro Segura MD [facility] [address] [place] [address] Nephrology 10/03/16 Freddy Craft MD [facility] [place], [place] [address] Assigned Gastroenterology Provider 02/08/20 Abdifatah Van MD 717 [facility] [address] [place] [address] Assigned Nephrology Provider 07/13/20 11/07/23 Nicole Carranza NP 420 [facility] 508 [place], [place] [address]85 Assigned Heart and Vascular Provider 01/09/22 Andressa Ruiz PA-C 420 [facility] 803 [place] [address] Physician Director Packaging Endocrinology, Diabetes, and Metabolism 03/01/22 Ashlyn Storm, RN [facility] [address] [place], [place] 6[address]234 Registered Nurse 03/03/22 09/15/22 Rubén Gunter [facility] [address] [place] [address] [place] [address] Assigned MTM Pharmacist 02/27/22 Andressa Ruiz PA-C 420 [facility] 803 [place] [address] Assigned Endocrinology Provider 03/13/22 09/07/23 Suzan Harry MD 420 [place] [address] Nephrology 06/30/23 Yasmeen Powers MD 500 [place] [address] Nephrology 10/24/23 Yasmeen Powers MD [address] [place] [address] Assigned Nephrology Provider 11/08/23 documented as of this encounter
--- OUTSIDE RECORDS SUMMARY | 2024-01-17 17:30 | XMS_ITS | Encounter Summary ---
Author Organization [facility] Address [address] [place] [address] Care Team Providers Care Mountain Or Glacier Guide Name Role Phone Rubén Boyle MD Primary Care Provider Pamela Blanco OIL DEVELOPER Unavailable Pedro Segura MD Unavailable Freddy Craft MD Unavailable Abdifatah Van MD Unavailable Nicole Carranza OIL DEVELOPER Unavailable [phone] Andressa Ruiz-C Unavailable Ashlyn Storm RN Unavailable Rubén Gunter [facility] Unavailable Andressa Ruiz-C Unavailable [phone] Suzan Harry MD Unavailable [phone] Yasmeen Powers MD Unavailable [phone] Yasmeen Powers MD Unavailable [phone] Encounter Details Date Type Department Care Team (Latest Contact Info) Description 04/06/2017 External Order Results [facility] [address] [place] [address] Long-term use of immunosuppressant medication; [...] Diagnosis Comments PHOSPHORUS Routine 04/05/2017 8:00 AM AREA SAFETY MANAGER Long-term use of immunosuppressant medication Liver replaced by transplant (H) MAGNESIUM Routine 04/05/2017 8:00 AM AREA SAFETY MANAGER Long-term use of immunosuppressant medication Liver replaced by transplant (H) HEPATIC FUNCTION PANEL Routine 04/05/2017 8:00 AM AREA SAFETY MANAGER Long-term use of immunosuppressant medication Liver replaced by transplant (H) DIFFERENTIAL Routine 04/05/2017 8:00 AM AREA SAFETY MANAGER BASIC METABOLIC PANEL Routine 04/05/2017 8:00 AM AREA SAFETY MANAGER Long-term use of immunosuppressant medication Liver replaced by transplant (H) CBC WITH PLATELETS Routine 04/05/2017 8: 00 AM AREA SAFETY MANAGER Long-term use of immunosuppressant medication Liver replaced by transplant (H) documented in this encounter Results * (ABNORMAL) WBC Differential (04/05/2017 8:00 AM AREA SAFETY MANAGER) % Neutrophils (External) 48.9 42.0 - 72.0 [...] SCAN Blood specimen (specimen) 04/05/2017 8:00 AM AREA SAFETY MANAGER Narrative AMNAE PFT - 04/06/2017 8:24 AM AREA SAFETY MANAGER Verified by Cruzito Marlow on 04/06/2017. Patient Reported LAB - BLOOD ORDERABL ES SAMANTHA PFT LABDE SCAN * (ABNORMAL) CBC with platelets (04/05/2017 8:00 AM AREA SAFETY MANAGER) WBC Count (External) 2.9(L) 4.5 - 11.0 [...] SCAN Blood specimen (specimen) 04/05/2017 8:00 AM AREA SAFETY MANAGER Narrative SAMANTHA PFT - 04/06/2017 8:24 AM AREA SAFETY MANAGER Verified by Cruzito Marlow on 04/06/2017. Aime Vu MD LAB - BLOOD ORDERA BLES Performing Organization Address [facility] Co de Phone Number BREEZE PFT LABDE SCAN * Phosphorus (04/05/2017 8:00 AM AREA SAFETY MANAGER) Phosphorus (External) 3.0 2.3 - 4.7 mg/dL LABDE SCAN Blood specimen (specimen) 04/05/2017 8:00 AM AREA SAFETY MANAGER Narrative BREEZE PFT - 04/06/2017 8:24 AM AREA SAFETY MANAGER Verified by Cruzito Marlow on 04/06/2017. Aime Vu MD LAB - BLOOD ORDERA BLES Performing Organization Address [facility] de Phone Number BREEZE PFT LABDE SCAN * (ABNORMAL) Hepatic panel (04/05/2017 8:00 AM AREA SAFETY MANAGER) Albumin (External) 4.2 3.2 - 4.6 g/dL [...] SCAN Blood specimen (specimen) 04/05/2017 8:00 AM AREA SAFETY MANAGER Narrative BREEZE PFT - 04/06/2017 8:24 AM AREA SAFETY MANAGER Verified by Cruzito Marlow on 04/06/2017. Aime Vu MD LAB - BLOOD ORDERA BLES Performing Organization Address [facility] de Phone Number BREEZE PFT LABDE SCAN * (ABNORMAL) Basic metabolic panel (04/05/2017 8:00 AM AREA SAFETY MANAGER) Sodium (External) 138 135 - 145 mmol/L [...] SCAN Blood specimen (specimen) 04/05/2017 8:00 AM AREA SAFETY MANAGER Narrative BREEZE PFT - 04/06/2017 8:24 AM AREA SAFETY MANAGER Verified by Cruzito Marlow on 04/06/2017. Aime Vu MD LAB - BLOOD ORDERA BLES BREEZE PFT LABDE SCAN * (ABNORMAL) Magnesium (04/05/2017 8:00 AM AREA SAFETY MANAGER) Magnesium (External) 1.0(LL) 1.6 - 2.6 mg/dL LABDE SCAN Blood specimen (specimen) 04/05/2017 8:00 AM AREA SAFETY MANAGER Narrative BREEZE PFT - 04/06/2017 8:08 AM AREA SAFETY MANAGER Verified by Cruzito Marlow on 04/06/2017. Aime [...] documented as of this encounter Care Teams Mountain Or Glacier Guide Relationship Specialty Start Date End Date Rubén Boyle MD PCP - General Family Practice 03/08/16 Pamela Blanco, OIL DEVELOPER [facility] [address] [place] [address] Referring Physician 07/13/16 Pedro Segura MD [facility] [address] [place] [address] Nephrology 10/03/16 Freddy Craft MD 516 [facility] [address] [place], [place] [address] Assigned Gastroenterology Provider 02/08/20 Abdifatah Van MD [address] [place], [place] [address] Assigned Nephrology Provider 07/13/20 11/07/23 Nicole Carranza NP [address] [facility] [address] [place], [place] [address] Assigned Heart and Vascular Provider 01/09/22 Andressa Ruiz PA-C 420 [facility] [address] [place], [place] [address] Physician Shrinker Endocrinology, Diabetes, and Metabolism 03/01/22 Ashlyn Storm, RN [facility] 7[address] [place] [address] Registered Nurse 03/03/22 09/15/22 Rubén Gunter [facility] 909 [place] [address] Assigned MTM Pharmacist 02/27/22 Andressa Ruiz PA-C 420 [facility] 803 [place] [address] Assigned Endocrinology Provider 03/13/22 09/07/23 Suzan Harry MD 420 [place] [address] Nephrology 06/30/23 Yasmeen Powers MD 500 [place] [address] Nephrology 10/24/23 Yasmeen Powers MD [address] [place] [address] Assigned Nephrology Provider 11/08/23 documented as of this encounter
--- OUTSIDE RECORDS SUMMARY | 2024-01-17 17:30 | XMS_ITS | Encounter Summary ---
Author Organization [facility] Address [address] [place] [address] Care Team Providers Care Forging Dies Final Finisher Name Role Phone Rubén Bolye MD Primary Care Provider Pamela Blanco DIPPER AND BAKER Unavailable Pedro Segura MD Unavailable [phone] Freddy Craft MD Unavailable Abdifatah Van MD Unavailable Nicole Carranza DIPPER AND BAKER Unavailable [phone] Andressa Ruiz-C Unavailable [phone] Ashlyn Storm RN Unavailable Rubén Gunter [facility] Unavailable Andrsesa Ruiz-C Unavailable Suzan Harry MD Unavailable [phone] Yasmeen Powers MD Unavailable [phone] Yasmeen Powers MD Unavailable [phone] Encounter Details Date Type Department Care Team (Late st Contact Info) Description 04/16/2017 External Order Results [facility] [address] [place] [address] Social History Tobacco Use Types [...] TANDEM MASS SPECTROMETRY Routine 04/12/2017 8:32 AM ESTATE PLANNING PARALEGAL documented in this encounter Results * Tacrolimus level (04/12/2017 8:32 AM ESTATE PLANNING PARALEGAL) Tacrolimus(FK-5 06) (External) 4.9 LABDE SCAN Tacrolimus Last Dose (External) 04/11/2017 At 08:00pm LABDE SCAN Blood specimen (specimen) 04/12/2017 8:32 AM ESTATE PLANNING PARALEGAL Narrative SAMANTHA PFT - 04/16/2017 11:00 AM ESTATE PLANNING PARALEGAL Verified by Yamil Santo on 04/16/2017. 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 [address] [place] [address] Nephrology 10/03/16 Freddy Craft MD 516 [facility] [address] [place] [address] Assigned Gastroenterology Provider 02/08/20 Abdifatah Van MD 717 [facility] [address] [place] [address] Assigned Nephrology Provider 07/13/20 11/07/23 Nicole Carranza NP 420 [facility] 508 [place], [place] [address] Assigned Heart and Vascular Provider 01/09/22 Andressa Ruiz PA-C 420 [facility] 803 [place], [place] [address] Physician Dictaphone Typist Endocrinology, Diabetes, and Metabolism 03/01/22 Ashlyn Storm RN [facility] 711 [place] [address] Registered Nurse 03/03/22 09/15/22 Rubén Gunter [facility] 909 [facility] [place] [address] Assigned MTM Pharmacist 02/27/22 Andressa Ruiz PA-C 420 [facility] 803 [place] [address] Assigned Endocrinology Provider 03/13/22 09/07/23 Suzan Harry MD [address] [place] [address] Nephrology 06/30/23 Yasmeen Powers MD 500 [place] [address] Nephrology 10/24/23 Yasmeen Powers MD 500 [place] [address] Assigned Nephrology Provider 11/08/23 documented as of this encounter
--- OUTSIDE RECORDS SUMMARY | 2024-01-17 17:30 | XMS_ITS | Encounter Summary ---
Author Organization [facility] Address [address] [place] [address] Care Team Providers Care Damascener Name Role Phone Rubén Boyle MD Primary Care Provider Pamela Blanco POLY AREA SUPERVISOR Unavailable [phone] Pedro Segura MD Unavailable [phone] Freddy Craft MD Unavailable Abdifatah Van MD Unavailable Nicole Carranza POLY AREA SUPERVISOR Unavailable [phone] Andressa Ruiz-C Unavailable Ashlyn Storm RN Unavailable Rubén Gunter [facility] Unavailable Andresas Ruiz-C Unavailable Suzan Harry MD Unavailable [phone] Yasmeen Powers MD Unavailable [phone] Yasmeen Powers MD Unavailable [phone] Encounter Details Date Type Department Care Team (Latest Contact Info) Description 04/22/2017 External Order Results [facility] [address] [place] [address] Long-term use of immunosuppressant [...] TANDEM MASS SPECTROMETRY Routine 04/19/2017 9:45 AM FACE PAINTER Long-term use of immunosuppressant medication Liver replaced by transplant (H) documented in this encounter Results * (ABNORMAL) Tacrolimus level (04/19/2017 9:45 AM FACE PAINTER) Tacrolimus(FK-5 06) (External) 4.7(L) 5 - 8 ng/mL LABDE SCAN Blood specimen (specimen) 04/19/2017 9:45 AM FACE PAINTER Narrative SAMANTHA PFT - 04/22/2017 1:14 PM FACE PAINTER Verified by Rhiannon Cain on 04/22/2017. Aime [...] documented as of this encounter Care Teams Damascener Relationship Specialty Start Date End Date Rubén Boyle MD PCP - General Family Practice 03/08/16 Pamela Blanco NP [facility] [address] [place] [address] Referring Physician 07/13/16 Pedro Segura MD [facility] [address] [place] [address] Nephrology 10/03/16 Freddy Craft MD 516 [facility] 2A [place], [place] [address] Assigned Gastroenterology Provider 02/08/20 Abdifatah Van MD 717 [facility] [address] [place] [address] Assigned Nephrology Provider 07/13/20 11/07/23 Nicole Carranza NP 420 [facility] 508 [place], [place] [address] Assigned Heart and Vascular Provider 01/09/22 Andressa Ruiz PA-C 420 [facility] 803 [place], [place] [address] Physician Can Coverer Endocrinology, Diabetes, and Metabolism 03/01/22 Ashlyn Storm, RN [facility] 711 [place] [address] Registered Nurse 03/03/22 09/15/22 Rubén Gunter [facility] 909 [place], [place] [address] Assigned MTM Pharmacist 02/27/22 Andressa Ruiz PA-C 420 [facility] 803 [place] [address] Assigned Endocrinology Provider 03/13/22 09/07/23 Suzan Harry MD 420 [place] [address] Nephrology 06/30/23 Yasmeen Powers MD 500 [place] [address] Nephrology 10/24/23 Yasmeen Powers MD 500 [place] [address] Assigned Nephrology Provider 11/08/23 documented as of this encounter
--- OUTSIDE RECORDS SUMMARY | 2024-01-17 17:31 | XMS_ITS | Encounter Summary ---
Author Organization [facility] Address [address] [place] [address] Care Team Providers Care Home Economics Expert Name Role Phone Rubén Boyle MD Primary Care Provider Pamela Blanco DOG RAISER Unavailable [phone] Pedro Segura MD Unavailable Freddy Craft MD Unavailable Abdifatah Van MD Unavailable Nicole Carranza DOG RAISER Unavailable [phone] Andressa Ruiz-C Unavailable Ashlyn Storm RN Unavailable [phone] Rubén Gunter [facility] Unavailable Andressa Ruiz-C Unavailable Suzan Harry MD Unavailable [phone] Yasmeen Powers MD Unavailable Yasmeen Powers MD Unavailable [phone] Encounter Details Date Type Department Care Team (Late st Contact Info) Description 01/20/[address] [facility] [address] [place] [address] Social History Tobacco Use Types [...] as of this encounter Care Teams Home Economics Expert Relationship Specialty Start Date End Date Rubén Boyle MD PCP - General Family Practice 03/08/16 Pamela Blanco NP [facility] [address] [place] [address] Referring Physician 07/13/16 Pedro Segura MD [facility] [address] [place] [address] Nephrology 10/03/16 Freddy Craft MD 516 [facility] [address] [place] [address] Assigned Gastroenterology Provider 02/08/20 Abdifatah Van MD 717 [facility] [address] [place] [address] Assigned Nephrology Provider 07/13/20 11/07/23 Nicole Carranza NP 420 [facility] 508 [place] [address] Assigned Heart and Vascular Provider 01/09/22 Andressa Ruiz PA-C 420 [facility] 803 [place] [address] Physician Pawn Broker Endocrinology, Diabetes, and Metabolism 03/01/22 Ashlyn Storm, RN [facility] 711 [place] [address] Registered Nurse 03/03/22 09/15/22 Rubén Gunter [facility] [address] [place] [address] Assigned MTM Pharmacist 02/27/22 Andressa Ruiz PA-C 420 [facility] 803 [place] [address] Assigned Endocrinology Provider 03/13/22 09/07/23 Suzan Harry MD 420 [place] [address] Nephrology 06/30/23 Yasmeen Powers MD 500 [place] [address] Nephrology 10/24/23 Yasmeen Powers MD [address] [place] [address] Assigned Nephrology Provider 11/08/23 documented as of this encounter
--- OUTSIDE RECORDS SUMMARY | 2024-01-17 17:31 | XMS_ITS | Encounter Summary ---
Author Organization [facility] Address [address] [place] [address] Care Team Providers Care Patient Resource Specialist Name Role Phone Rubén Boyle MD Primary Care Provider Pamela Blanco PROGRAM PARAPROFESSIONAL Unavailable Pedro Segura MD Unavailable Freddy Craft MD Unavailable Abdifatah Van MD Unavailable Nicole Carranza PROGRAM PARAPROFESSIONAL Unavailable [phone] Andressa Ruiz-C Unavailable [phone] Ashlyn Storm RN Unavailable Rubén Gunter [facility] Unavailable Andressa Ruiz-C Unavailable Suzan Harry MD Unavailable [phone] Yasmeen Powers MD Unavailable Yasmeen Powers MD Unavailable [phone] Encounter Details Date Type Department Care Team [...] as of this encounter Care Teams Patient Resource Specialist Relationship Specialty Start Date End Date Rubén Boyle MD PCP - General Family Practice 03/08/16 Pamela Blanco NP [facility] [address] [place], [place] [id number] Referring Physician 07/13/16 Pedro Segura MD [facility] [address] [place] [address] Nephrology 10/03/16 Freddy Craft MD 516 [facility] [address] [place] [address] Assigned Gastroenterology Provider 02/08/20 Abdifatah Van MD [address] [facility] [address] [place] [address] Assigned Nephrology Provider 07/13/20 11/07/23 Nicole Carranza NP 420 [facility] [address] [place], [place] [address] Assigned Heart and Vascular Provider 01/09/22 Andressa Ruiz PA-C 420 [facility] 803 [place] [address] Physician Tie Mill Operator Endocrinology, Diabetes, and Metabolism 03/01/22 Ashlyn Storm, RN [facility] 711 [place] [address] Registered Nurse 03/03/22 09/15/22 Rubén Gunter [facility] [address] [place] [address] Assigned MTM Pharmacist 02/27/22 Andressa Ruiz PA-C 420 [facility] 803 [place] [address] Assigned Endocrinology Provider 03/13/22 09/07/23 Suzan Harry MD 420 [place] [address] Nephrology 06/30/23 Yasmeen Powers MD 500 [place] [address] Nephrology 10/24/23 Yasmeen Powers MD 500 [place] [address] Assigned Nephrology Provider 11/08/23 documented as of this encounter
--- OUTSIDE RECORDS SUMMARY | 2024-01-17 17:31 | XMS_ITS | Encounter Summary ---
Author Organization [place] Address [address] [place] [address] Care Team Providers Care Instrument Technologist Name Role Phone Rubén Boyle MD Primary Care Provider Pamela Blanco JUNIOR MARKETING ASSOCIATE Unavailable Pedro Segura MD Unavailable [phone] Freddy Craft MD Unavailable Abdifatah Van MD Unavailable Nicole Carranza JUNIOR MARKETING ASSOCIATE Unavailable [phone] Andressa Ruiz-C Unavailable [phone] Ashlyn Storm RN Unavailable [phone] Rubén Gunter [facility] Unavailable Andressa Ruiz-C Unavailable [phone] Suzan Harry MD Unavailable [phone] Yasmeen Powers MD Unavailable Yasmeen Powers MD Unavailable [phone] Encounter Details Date Type Department Care Team (Late st Contact Info) Description 01/24/2017 External Order Results [facility] 909 [place] [address] Social History Tobacco Use Types [...] documented as of this encounter Care Teams Instrument Technologist Relationship Specialty Start Date End Date Rubén Boyle MD PCP - General Family Practice 03/08/16 Pamela Blanco, JUNIOR MARKETING ASSOCIATE [facility] [address] [place] [address] Referring Physician 07/13/[address] [facility] [address] [place] [address] Nephrology 10/03/16 Freddy Craft MD [address] [facility] [address] [place], [place] [address] Assigned Gastroenterology Provider 02/08/20 Abdifatah Van MD [address] [facility] [address] [place], [place] [address]524 Assigned Nephrology Provider 07/13/20 11/07/23 Nicole Carranza, GERMANIA 420 [facility] 508 [place], [place] [address] Assigned Heart and Vascular Provider 01/09/22 Andressa Ruiz PA-C 420 [facility] 803 [place], [place] [address] Physician House Wrecker Endocrinology, Diabetes, and Metabolism 03/01/22 Ashlyn Storm, RN [facility] 711 [place] [address] Registered Nurse 03/03/22 09/15/22 Rubén Gunter [facility] [address] [place] [address] Assigned MTM Pharmacist 02/27/22 Andressa Ruiz PA-C 420 [facility] 803 [place] [address] Assigned Endocrinology Provider 03/13/22 09/07/23 Suzan Harry MD 420 [place] [address] Nephrology 06/30/23 Yasmeen Powers MD 500 [place] [address] Nephrology 10/24/23 Yasmeen Powers MD [address] [place] [address] Assigned Nephrology Provider 11/08/23 documented as of this encounter
--- OUTSIDE RECORDS SUMMARY | 2024-01-17 17:31 | XMS_ITS | Encounter Summary ---
Author Organization [place] Address [address] [place] [address] Care Team Providers Care Photonics Engineer Name Role Phone Rubén Boyle MD Primary Care Provider Pamela Blanco ADVERTISING WRITER Unavailable Pedro Segura MD Unavailable Freddy Craft MD Unavailable [phone] Abdifatah Van MD Unavailable Nicole Carranza ADVERTISING WRITER Unavailable [phone] Andressa Ruiz-C Unavailable [phone] Ashlyn Storm RN Unavailable Rubén Gunter [facility] Unavailable Andressa Ruiz-C Unavailable Suzan Harry MD Unavailable [phone] Yasmeen Powers MD Unavailable [phone] Yasmeen Powers MD Unavailable [phone] Encounter Details Date Type Department Care Team (Latest Contact Info) Description 03/09/2017 External Order Results [facility] 909 [place] [address] Long-term use of immunosuppressant medication; [...] Diagnosis Comments PHOSPHORUS Routine 03/07/2017 8:25 AM RECONSTRUCTIVE SURGEON Long-term use of immunosuppressant medication Liver replaced by transplant (H) MAGNESIUM Routine 03/07/2017 8:25 AM RECONSTRUCTIVE SURGEON Long-term use of immunosuppressant medication Liver replaced by transplant (H) HEPATIC FUNCTION PANEL Routine 03/07/2017 8:25 AM RECONSTRUCTIVE SURGEON Long-term use of immunosuppressant medication Liver replaced by transplant (H) BASIC METABOLIC PANEL Routine 03/07/2017 8:25 AM RECONSTRUCTIVE SURGEON Long-term use of immunosuppressant medication Liver replaced by transplant (H) CBC WITH PLATELETS Routine 03/07/2017 8: 25 AM RECONSTRUCTIVE SURGEON Long-term use of immunosuppressant medication Liver replaced by transplant (H) documented in this encounter Results * Hepatic panel (03/07/2017 8:25 AM RECONSTRUCTIVE SURGEON) Albumin (External) 3.9 3.2 - 4.6 g/dL [...] SCAN Blood specimen (specimen) 03/07/2017 8:25 AM RECONSTRUCTIVE SURGEON Narrative BREEZE PFT - 03/09/2017 11:44 AM RECONSTRUCTIVE SURGEON Verified by Rhiannon Cain on 03/09/2017. Aime Vu MD LAB - BLOOD ORDERA BLES Performing Organization Address [facility] Co de Phone Number BREEZE PFT LABDE SCAN * (ABNORMAL) Magnesium (03/07/2017 8:25 AM RECONSTRUCTIVE SURGEON) Magnesium (External) 1.3(L) 1.6 - 2.6 mg/dL LABDE SCAN Blood specimen (specimen) 03/07/2017 8:25 AM RECONSTRUCTIVE SURGEON Narrative BREEZE PFT - 03/09/2017 11:44 AM RECONSTRUCTIVE SURGEON Verified by Rhiannon Cain on 03/09/2017. Aime Vu MD LAB - BLOOD ORDERA BLEMarkel Performing Organization Address [facility] Co de Phone Number BREEZE PFT LABDE SCAN * Phosphorus (03/07/2017 8:25 AM RECONSTRUCTIVE SURGEON) Phosphorus (External) 3.5 2.3 - 4.7 mg/dL LABDE SCAN Blood specimen (specimen) 03/07/2017 8:25 AM RECONSTRUCTIVE SURGEON Narrative BREEZE PFT - 03/09/2017 11:44 AM RECONSTRUCTIVE SURGEON Verified by Rhiannon Cain on 03/09/2017. Aime Vu MD LAB - BLOOD ORDERA BLEMarkel Performing Organization Address [facility] Co de Phone Number BREEZE PFT LABDE SCAN * (ABNORMAL) Basic metabolic panel (03/07/2017 8:25 AM RECONSTRUCTIVE SURGEON) Sodium (External) 140 135 - 145 mmol/L [...] SCAN Blood specimen (specimen) 03/07/2017 8:25 AM RECONSTRUCTIVE SURGEON Narrative SAMANTHA PFT - 03/09/2017 11:44 AM RECONSTRUCTIVE SURGEON Verified by Rhiannon Cain on 03/09/2017. Aime Vu MD LAB - BLOOD ORDERA BLES SAMANTHA PFT LABDE SCAN * (ABNORMAL) CBC with platelets (03/07/2017 8:25 AM RECONSTRUCTIVE SURGEON) WBC Count (External) 4.9 4.5 - 11.0 [...] SCAN Blood specimen (specimen) 03/07/2017 8:25 AM RECONSTRUCTIVE SURGEON Narrative AMNAE PFT - 03/09/2017 11:44 AM RECONSTRUCTIVE SURGEON Verified by Rhiannon Cain on 03/09/2017. Aime [...] documented as of this encounter Care Teams Photonics Engineer Relationship Specialty Start Date End Date Rubén Boyle MD PCP - General Family Practice 03/08/16 Pamela Blanco NP [facility] [address] [place], [place] 593667 Referring Physician 07/13/16 Pedro Segura MD [facility] [address] [place], [place] [address]207 Nephrology 10/03/16 Freddy Craft MD 516 [facility] [place], [place] [address] Assigned Gastroenterology Provider 02/08/20 Abdifatah Van MD [address] [facility] [address] [place] [address] Assigned Nephrology Provider 07/13/20 11/07/23 Nicole Carranza NP 420 [facility] 508 [place] [address] Assigned Heart and Vascular Provider 01/09/22 Andressa Ruiz PA-C [address] [address] Physician Table Games Dealer Endocrinology, Diabetes, and Metabolism 03/01/22 Ashlyn Storm, RN [facility] 711 [place] [address] Registered Nurse 03/03/22 09/15/22 Rubén Gunter [facility] [address] [place] [address] Assigned MTM Pharmacist 02/27/22 Andressa Ruiz PA-C [address] [address] Assigned Endocrinology Provider 03/13/22 09/07/23 Suzan Harry MD [address] [place] [address] Nephrology 06/30/23 Yasmeen Powers MD 500 [place] [address] Nephrology 10/24/23 Yasmeen Powers MD 500 [place] [address] Assigned Nephrology Provider 11/08/23 documented as of this encounter
--- OUTSIDE RECORDS SUMMARY | 2024-01-17 17:31 | XMS_ITS | Encounter Summary ---
Author Organization [place] Address [address] [place] [address] Care Team Providers Care Ice Cream Vault Worker Name Role Phone Rubén Boyle MD Primary Care Provider Pamela Blanco THERMO CEMENTING FOLDER OPERATOR Unavailable [phone] Pedro Segura MD Unavailable [phone] Freddy Craft MD Unavailable [phone] Adbifatah Van MD Unavailable Nicole Carranza THERMO CEMENTING FOLDER OPERATOR Unavailable [phone] Andressa Ruiz-C Unavailable [phone] Ashlyn Storm RN Unavailable Rubén Gunter [facility] Unavailable Andressa Ruiz-C Unavailable Suzan Harry MD Unavailable [phone] Yasmeen Powers MD Unavailable Yasmeen Powers MD Unavailable [phone] Encounter Details Date Type Department Care Team (Late st Contact Info) Description 01/12/2017 External Order Results [facility] 909 [place] [address] Social History Tobacco Use Types [...] documented as of this encounter Care Teams Ice Cream Vault Worker Relationship Specialty Start Date End Date Rubén Boyle MD PCP - General Family Practice 03/08/[address] [facility] [address] [place] [address] Referring Physician 07/13/[address] [facility] [address] [place] [address] Nephrology 10/03/16 Freddy Craft MD 516 [facility] 2A [place], [place] [address] Assigned Gastroenterology Provider 02/08/20 Abdifatah Van MD 717 [facility] [address] [place] [address] Assigned Nephrology Provider 07/13/20 11/07/23 Nicole Carranza NP 420 [facility] 508 [place], [place] [address]335 Assigned Heart and Vascular Provider 01/09/22 Andressa Ruiz PA-C 420 [facility] 803 [place], [place] [address]995 Physician Bit Sharpener Endocrinology, Diabetes, and Metabolism 03/01/22 Ashlyn Storm, RN [facility] 711 [facility] SE [place], [place] [address] Registered Nurse 03/03/22 09/15/22 Rubén Gunter [facility] 909 [place] [address] Assigned MTM Pharmacist 02/27/22 Andressa Ruiz PA-C 420 [facility] 803 [place], [place] 771205 Assigned Endocrinology Provider 03/13/22 09/07/23 Suzan Harry MD 420 [place], [place] 308235 Nephrology 06/30/23 Yasmeen Powers MD 500 [place], [place] 271165 Nephrology 10/24/23 Yasmeen Powers MD 500 [place] [address] Assigned Nephrology Provider 11/08/23 documented as of this encounter
--- OUTSIDE RECORDS SUMMARY | 2024-01-17 17:31 | XMS_ITS | Encounter Summary ---
Author Organization [place] Address [address] [place] [address] Care Team Providers Care Chemistry Lab Instructor Name Role Phone Rubén Boyle MD Primary Care Provider Pamela Blanco APPLICATION INTEGRATION ENGINEER Unavailable [phone] Pedro Segura MD Unavailable [phone] Freddy Craft MD Unavailable [phone] Abdifatah Van MD Unavailable Nicole Carranza APPLICATION INTEGRATION ENGINEER Unavailable [phone] Andressa Ruiz-C Unavailable Ashlyn Storm RN Unavailable Rubén Gunter [facility] Unavailable Andressa Ruiz-C Unavailable [phone] Suzan Harry MD Unavailable [phone] Yasmeen Powers MD Unavailable [phone] Yasmeen Powers MD Unavailable [phone] Encounter Details Date Type Department Care Team (Late st Contact Info) Description 03/23/2017 [facility] Transplant [facility] 909 [place] [address] Christina Joseph RN Social History [...] documented as of this encounter Care Teams Chemistry Lab Instructor Relationship Specialty Start Date End Date Rubén Boyle MD PCP - General Family Practice 03/08/[address] [facility] [address] [place], [place] 658797 Referring Physician 07/13/[address] [facility] [address] [place], [place] 303377 Nephrology 10/03/16 Freddy Craft MD 516 [facility] 2[facility] [place], [place] [address] Assigned Gastroenterology Provider 02/08/20 Abdifatah Van MD 717 [facility] [address] [place] [address] Assigned Nephrology Provider 07/13/20 11/07/23 Nicole Carranza NP 420 [facility] 508 [place] [address] Assigned Heart and Vascular Provider 01/09/22 Andressa Ruiz PA-C 420 [facility] 803 [place] [address] Physician Rotary Drill Rig Operator Endocrinology, Diabetes, and Metabolism 03/01/22 Ashlyn Storm, RN [facility] 711 [place] [address] Registered Nurse 03/03/22 09/15/22 Rubén Gunter [facility] [address] [place] [address] Assigned MTM Pharmacist 02/27/22 Andressa Ruiz PA-C 420 [facility] 803 [place] [address] Assigned Endocrinology Provider 03/13/22 09/07/23 Suzan Harry MD 420 [place] [address] Nephrology 06/30/23 Yasmeen Powers MD 500 [place] [address] Nephrology 10/24/23 Yasmeen Powers MD 500 [place] [address] Assigned Nephrology Provider 11/08/23 documented as of this encounter
--- OUTSIDE RECORDS SUMMARY | 2024-01-17 17:31 | XMS_ITS | Encounter Summary ---
Author Organization [place] Address [address] [place] [address] Care Team Providers Care Warehouse Driver Name Role Phone Rubén Boyle MD Primary Care Provider [phone] Pamela Blanco ASSISTANT PRODUCER Unavailable Pedro Segura MD Unavailable Freddy Craft MD Unavailable Abdifatah Van MD Unavailable Nicole Carranza ASSISTANT PRODUCER Unavailable [phone] Andressa Ruiz-C Unavailable Ashlyn Storm RN Unavailable [phone] Rubén Gunter [facility] Unavailable Andressa Ruiz-C Unavailable Suzan Harry MD Unavailable [phone] Yasmeen Powers MD Unavailable [phone] Yasmeen Powers MD Unavailable [phone] Encounter Details Date Type Department Care Team (Late st Contact Info) Description 02/08/2017 External Order Results [facility] 909 [place] [address] Social History Tobacco Use Types [...] as of this encounter Care Teams Warehouse Driver Relationship Specialty Start Date End Date Rubén Boyle MD PCP - General Family Practice 03/08/16 Pamela Blanco ASSISTANT PRODUCER [facility] [address] [place] [address] Referring Physician 07/13/16 Pedro Sgeura MD [facility] [address] [place] [address] Nephrology 10/03/16 Freddy Craft MD 516 [facility] 2A [place], [place] [address] Assigned Gastroenterology Provider 02/08/20 Abdifatah Van MD 717 [facility] [address] [place], [place] [address]124 Assigned Nephrology Provider 07/13/20 11/07/23 Nicole Carranza NP 420 [facility] 508 [place], [place] [address] Assigned Heart and Vascular Provider 01/09/22 Andressa Ruiz PA-C 420 [facility] 803 [place], [place] [address] Physician Airline Operations Agent Endocrinology, Diabetes, and Metabolism 03/01/22 Ashlyn Storm, RN [facility] 711 [place], [place] [address] Registered Nurse 03/03/22 09/15/22 Rubén Gunter [facility] 909 [place], [place] [address] Assigned MTM Pharmacist 02/27/22 Andressa Ruiz PA-C 420 [facility] 803 [place] [address] Assigned Endocrinology Provider 03/13/22 09/07/23 Suzan Harry MD 420 [place], [place] 60[address]65 Nephrology 06/30/23 Yasmeen Powers MD 500 [place], [place] 6[address] Nephrology 10/24/23 Yasmeen Powers MD 500 [place], [place] 757485 Assigned Nephrology Provider 11/08/23 documented as of this encounter
--- OUTSIDE RECORDS SUMMARY | 2024-01-17 17:31 | XMS_ITS | Encounter Summary ---
Author Organization [facility] Address [address] [place] [address] Care Team Providers Care General Education Professor Name Role Phone Rubén Boyle MD Primary Care Provider Pamela Blanco HARVESTING CONTRACTOR Unavailable Pedro Segura MD Unavailable Freddy Craft MD Unavailable Abdifatah Van MD Unavailable Nicole Carranza HARVESTING CONTRACTOR Unavailable [phone] Andressa Ruiz-C Unavailable Ashlyn Storm RN Unavailable Rubén Gunter [facility] Unavailable Andressa Ruiz-C Unavailable [phone] Suzan Harry MD Unavailable [phone] Yasmeen Powers MD Unavailable [phone] Yasmeen Powers MD Unavailable [phone] Encounter Details Date Type Department Care Team (Late st Contact Info) Description 01/10/2017 External Order Results [facility] 909 [place] [address] Social History Tobacco Use Types [...] documented as of this encounter Care Teams General Education Professor Relationship Specialty Start Date End Date Rubén Boyle MD PCP - General Family Practice 03/08/16 Pamela Blanco HARVESTING CONTRACTOR [facility] [address] [place] [address] Referring Physician 07/13/16 Pedro Segura MD [facility] [address] [place] [address] Nephrology 10/03/16 Freddy Craft MD 516 [facility] 2A [place], [place] [address] Assigned Gastroenterology Provider 02/08/20 Abdifatah Van MD 717 [facility] [address] 353 [place], [place] 94[address]94 Assigned Nephrology Provider 07/13/20 11/07/23 Nicole Carranza NP 420 [facility] 508 [place], [place] [address]85 Assigned Heart and Vascular Provider 01/09/22 Andressa Ruiz PA-C 420 [facility] 803 [place], [place] [address] Physician Medical File Clerk Endocrinology, Diabetes, and Metabolism 03/01/22 Ashlyn Storm RN [facility] 711 [place] [address] Registered Nurse 03/03/22 09/15/22 Rubén Gunter [facility] [address] [place] [address] Assigned MTM Pharmacist 02/27/22 Andressa Ruiz PA-C 420 [facility] 803 [place] [address] Assigned Endocrinology Provider 03/13/22 09/07/23 Suzan Harry MD 420 [place] [address] Nephrology 06/30/23 Yasmeen Powers MD 500 [place] [address] Nephrology 10/24/23 Yasmeen Powers MD 500 [place] [address] Assigned Nephrology Provider 11/08/23 documented as of this encounter
--- OUTSIDE RECORDS SUMMARY | 2024-01-17 17:31 | XMS_ITS | Encounter Summary ---
Author Organization [place] Address [address] [place] [address] Care Team Providers Care Structural Technician Name Role Phone Rubén Boyle MD Primary Care Provider Pamela Blanco SECOND SHIFT SUPERVISOR Unavailable Pedro Segura MD Unavailable Freddy Craft MD Unavailable Abdifatah Van MD Unavailable Nicole Carranza SECOND SHIFT SUPERVISOR Unavailable [phone] Andressa Ruiz-C Unavailable Ashlyn Storm RN Unavailable Rubén Gunter [facility] Unavailable Andressa Ruiz-C Unavailable Suzan Harry MD Unavailable [phone] Yasmeen Powers MD Unavailable Yasmeen Powers MD Unavailable [phone] Encounter Details Date Type Department Care Team (Latest Contact Info) Description 03/13/2017 External Order Results [facility] 909 [place] [address] Long-term use of immunosuppressant medication; [...] TANDEM MASS SPECTROMETRY Routine 03/07/2017 8:25 AM TOBACCO FEEDER CATCHER Long-term use of immunosuppressant medication Liver replaced by transplant (H) documented in this encounter Results * Tacrolimus level (03/07/2017 8:25 AM TOBACCO FEEDER CATCHER) Tacrolimus(FK-5 06) (External) 11.9 ng/mL LABDE SCAN Tacrolimus Last Dose (External) not given LABDE SCAN Blood specimen (specimen) 03/07/2017 8:25 AM TOBACCO FEEDER CATCHER Narrative SAMANTHA PFT - 03/13/2017 9:11 AM TOBACCO FEEDER CATCHER Verified by Myrna Monreal on 03/13/2017. Aime [...] documented as of this encounter Care Teams Structural Technician Relationship Specialty Start Date End Date Rubén Boyle MD PCP - General Family Practice 03/08/16 Pamela Blanco SECOND SHIFT SUPERVISOR [facility] [address] [place] [address] Referring Physician 07/13/[address] [facility] [address] [place] [address] Nephrology 10/03/16 Freddy Craft MD 516 [facility] 2A [place], [place] [address] Assigned Gastroenterology Provider 02/08/20 Abdifatah Van MD 717 [facility] [address] [place] [address] Assigned Nephrology Provider 07/13/20 11/07/23 Nicole Carranza NP 420 [facility] 508 [place], [place] [address]805 Assigned Heart and Vascular Provider 01/09/22 Andressa Ruiz PA-C 420 [facility] 803 [place], [place] [address] Physician Red Hat Linux Administrator Endocrinology, Diabetes, and Metabolism 03/01/22 Ashlyn Storm, RN [facility] 711 [place] [address] Registered Nurse 03/03/22 09/15/22 Rubén Gunter [facility] 909 [facility] SE [place], [place] 8509[address] Assigned MTM Pharmacist 02/27/22 Andressa Ruiz PA-C 420 [facility] 803 [place] [address] Assigned Endocrinology Provider 03/13/22 09/07/23 Suzan Harry MD 420 [place] [address] Nephrology 06/30/23 Yasmeen Powers MD 500 [place] [address] Nephrology 10/24/23 Yasmeen Powers MD 500 [place] [address] Assigned Nephrology Provider 11/08/23 documented as of this encounter
--- OUTSIDE RECORDS SUMMARY | 2024-01-17 17:31 | XMS_ITS | Encounter Summary ---
Author Organization [place] Address [address] [place] [address] Care Team Providers Care Funeral Home Makeup Artist Name Role Phone Rubén Boyle MD Primary Care Provider Pamela Blanco PATIENT SAFETY TECH Unavailable [phone] Pedro Segura MD Unavailable [phone] Freddy Craft MD Unavailable [phone] Abdifatah Van MD Unavailable Nicole Carranza PATIENT SAFETY TECH Unavailable [phone] Andressa Ruiz-C Unavailable Ashlyn Storm RN Unavailable [phone] Rubén Gunter [facility] Unavailable Andressa Ruiz-C Unavailable Suzan Harry MD Unavailable [phone] Yasmeen Powers MD Unavailable [phone] Yasmeen Powers MD Unavailable [phone] Encounter Details Date Type Department Care Team (Late st Contact Info) Description 01/26/2017 External Order Results [facility] 909 [place] [address] Social History Tobacco Use Types [...] documented as of this encounter Care Teams Funeral Home Makeup Artist Relationship Specialty Start Date End Date Rubén Boyle MD PCP - General Family Practice 03/08/16 Pamela Blanco NP [facility] [address] [place], [place] 610737 Referring Physician 07/13/16 Pedro Segura MD [facility] [address] [place], [place] 382737 Nephrology 10/03/16 Freddy Craft MD 516 [facility] 2A [place], [place] 502235 Assigned Gastroenterology Provider 02/08/20 Abdifatah Van MD 717 [facility] [address] 353 [place], [place] 742934 Assigned Nephrology Provider 07/13/20 11/07/23 Nicole Carranza, GERMANIA 420 [facility] 508 [place], [place] 4736[address] Assigned Heart and Vascular Provider 01/09/22 Andressa Ruiz PA-C 420 [facility] 803 [place], [place] 233645 Physician It Administrative Assistant Endocrinology, Diabetes, and Metabolism 03/01/22 Ashlyn Storm RN [facility] 711 [place] [address] Registered Nurse 03/03/22 09/15/22 Rubén Gunter [facility] 909 [facility] SE [place], [place] [address] Assigned MTM Pharmacist 02/27/22 Andressa Ruiz PA-C 420 [facility] 803 [place], [place] [address] Assigned Endocrinology Provider 03/13/22 09/07/23 Suzan Harry MD 420 [place] [address] Nephrology 06/30/23 Yasmeen Powers MD 500 [place] [address] Nephrology 10/24/23 Yasmeen Powers MD 500 [place] [address] Assigned Nephrology Provider 11/08/23 documented as of this encounter
--- OUTSIDE RECORDS SUMMARY | 2024-01-17 17:31 | XMS_ITS | Encounter Summary ---
Author Organization [place] Address [address] [place] [address] Care Team Providers Care Senior Technical Support Analyst Name Role Phone Rubén Boyle MD Primary Care Provider Pamela Blanco BACK PADDER Unavailable Pedro Segura MD Unavailable Freddy Craft MD Unavailable Abdifatah Van MD Unavailable Nicole Carranza BACK PADDER Unavailable [phone] Andressa Ruiz-C Unavailable [phone] Ashlyn Storm RN Unavailable [phone] Rubén Gunter [facility] Unavailable Andressa Ruiz-C Unavailable Suzan Harry MD Unavailable [phone] Yasmeen Powers MD Unavailable [phone] Yasmeen Powers MD Unavailable [phone] Encounter Details Date Type Department Care Team (Latest Contact Info) Description 03/24/2017 External Order Results [facility] [address] [place] [address] Long-term use of immunosuppressant medication; [...] TANDEM MASS SPECTROMETRY Routine 03/21/2017 10:40 AM LEVEL VIAL GRINDER Long-term use of immunosuppressant medication Liver replaced by transplant (H) documented in this encounter Results * (ABNORMAL) Tacrolimus level (03/21/2017 10:40 AM LEVEL VIAL GRINDER) Tacrolimus(FK-5 06) (External) 21.3(H) 5 - 8 ng/mL LABDE SCAN Tacrolimus Last Dose (External) 03/20/2017 at 2000 LABDE SCAN Blood specimen (specimen) 03/21/2017 10:40 AM LEVEL VIAL GRINDER Narrative SAMANTHA PFT - 03/24/2017 12:03 PM LEVEL VIAL GRINDER Verified by Rhiannon Cain on 03/24/2017. Aime [...] as of this encounter Care Teams Senior Technical Support Analyst Relationship Specialty Start Date End Date Rubén Boyle MD PCP - General Family Practice 03/08/16 Pamela Blanco NP [facility] [address] [place] [address] Referring Physician 07/13/16 Pedro Segura MD [facility] [address] [place] [address] Nephrology 10/03/16 Freddy Craft MD 516 [facility] 2[facility] [place], [place] 4[address] Assigned Gastroenterology Provider 02/08/20 Abdifatah Van MD 717 [facility] [address] 353 [place], [place] [address] Assigned Nephrology Provider 07/13/20 11/07/23 Nicole Carranza, GERMANIA 420 [facility] 508 [place], [place] [address] Assigned Heart and Vascular Provider 01/09/22 Andressa Ruiz PA-C 420 [facility] 803 [place], [place] [address] Physician Prawn Trawler Hand Endocrinology, Diabetes, and Metabolism 03/01/22 Ashlyn Storm, RN [facility] 711 [place], [place] [address]274 Registered Nurse 03/03/22 09/15/22 Rubén Gunter RPH 909 [place], [place] 271195 Assigned MTM Pharmacist 02/27/22 Andressa Ruiz PA-C 420 [facility] MMC 803 [place], [place] [address]35 Assigned Endocrinology Provider 03/13/22 09/07/23 Suzan Harry MD 420 [place], [place] [address]85 Nephrology 06/30/23 Yasmeen Powers MD 500 [place] [address] Nephrology 10/24/23 Yasmeen Powers MD 500 [place] [address] Assigned Nephrology Provider 11/08/23 documented as of this encounter
--- OUTSIDE RECORDS SUMMARY | 2024-01-17 17:31 | XMS_ITS | Encounter Summary ---
Author Organization [place] Address [address] [place] [address] Care Team Providers Care It Integration Architect Name Role Phone Rubén Boyle MD Primary Care Provider [phone] Pamela Blanco AIRPLANE NAVIGATOR Unavailable Pedro Segura MD Unavailable Freddy Craft MD Unavailable [phone] Abdifatah Van MD Unavailable Nicole Carranza AIRPLANE NAVIGATOR Unavailable [phone] Andressa Ruiz-C Unavailable Ashlyn Storm RN Unavailable Rubén Gunter [facility] Unavailable Andressa Ruiz-C Unavailable Suzan Harry MD Unavailable [phone] Yasmeen Powers MD Unavailable Yasmeen Powers MD Unavailable [phone] Encounter Details Date Type Department Care Team (Late st Contact Info) Description 03/23/2017 External Order Results [facility] 909 [place] [address] Social History Tobacco Use Types [...] Comments HEMOGLOBIN A1C Routine 03/21/2017 10:40 AM FARM MANAGEMENT SUPERVISOR documented in this encounter Results * Hemoglobin A1c (03/21/2017 10:40 AM FARM MANAGEMENT SUPERVISOR) Hemoglobin A1C (External) 5.2 <=6.4 % LABDE SCAN Blood specimen (specimen) 03/21/2017 10:40 AM FARM MANAGEMENT SUPERVISOR Narrative SAMANTHA PFT - 03/23/2017 11:52 AM FARM MANAGEMENT SUPERVISOR Verified by Rhiannon Cain on 03/23/2017. 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, 07/10/16 rectal swab 06/21/2016 06/21/2016 documented as of this encounter Care Teams It Integration Architect Relationship Specialty Start Date End Date Rubén Boyle MD PCP - General Family Practice 03/08/16 Pamela Blanco NP [facility] [address] [place] [address] Referring Physician 07/13/16 Pedro Segura MD [facility] [address] [place] [address] Nephrology 10/03/16 Freddy Craft MD 516 [facility] [place] [address] Assigned Gastroenterology Provider 02/08/20 Abdifatah Van MD 717 [facility] [address] [place] [address] Assigned Nephrology Provider 07/13/20 11/07/23 Nicole Carranza NP 420 [facility] 508 [place] [address] Assigned Heart and Vascular Provider 01/09/22 Andressa Ruiz PA-C 420 [facility] 803 [place] [address] Physician Pest Control Worker Helper Endocrinology, Diabetes, and Metabolism 03/01/22 Ashlyn Storm RN [facility] 711 [place] [address] Registered Nurse 03/03/22 09/15/22 Rubén Gunter [facility] [address] [place] [address] Assigned MTM Pharmacist 02/27/22 Andressa Ruiz PA-C [address] [address] Assigned Endocrinology Provider 03/13/22 09/07/23 Suzan Harry MD 420 [place] [address] Nephrology 06/30/23 Yasmeen Powers MD 500 [place], [place] [address] Nephrology 10/24/23 Yasmeen Powers MD 500 [place], [place] 4[address] Assigned Nephrology Provider 11/08/23 documented as of this encounter
--- OUTSIDE RECORDS SUMMARY | 2024-01-17 17:31 | XMS_ITS | Encounter Summary ---
Author Organization [place] Address [address] [place] [address] Care Team Providers Care Protection Analyst Name Role Phone Rubén Boyle MD Primary Care Provider Pamela Blanco STONE CLEANER Unavailable [phone] Pedro Segura MD Unavailable [phone] Freddy Craft MD Unavailable Abdifatah Van MD Unavailable Nicole Carranza STONE CLEANER Unavailable [phone] Andressa Ruiz-C Unavailable [phone] Ashlyn Storm RN Unavailable [phone] Rubén Gunter [facility] Unavailable Andressa Ruiz-C Unavailable Suzan Harry MD Unavailable [phone] Yasmeen Powers MD Unavailable [phone] Yasmeen Powers MD Unavailable [phone] Encounter Details Date Type Department Care Team (Latest Contact Info) Description 03/22/[address] 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) MAGNESIUM Routine 03/21/2017 10:40 AM PACKING CHECKER Long-term use of immunosuppressant medication Liver replaced by transplant (H) HEPATIC FUNCTION PANEL Routine 03/21/2017 10:40 AM PACKING CHECKER Long-term use of immunosuppressant medication Liver replaced by transplant (H) BASIC METABOLIC PANEL Routine 03/21/2017 10:40 AM PACKING CHECKER Long-term use of immunosuppressant medication Liver replaced by transplant (H) CBC WITH PLATELETS Routine 03/21/2017 10 :40 AM PACKING CHECKER Long-term use of immunosuppressant medication Liver replaced by transplant (H) documented in this encounter Results * (ABNORMAL) Hepatic panel (03/21/2017 10:40 AM PACKING CHECKER) Albumin (External) 4.1 3.2 - 4.6 g/dL [...] SCAN Blood specimen (specimen) 03/21/2017 10:40 AM PACKING CHECKER Narrative BREEZE PFT - 03/22/2017 10:51 AM PACKING CHECKER Verified by Rhiannon Cain on 03/22/2017. Aime Vu MD LAB - BLOOD ORDERA BLES Performing Organization Address [facility] de Phone Number BREEZE PFT LABDE SCAN * (ABNORMAL) Magnesium (03/21/2017 10:40 AM PACKING CHECKER) Magnesium (External) 1.4(L) 1.6 - 2.6 mg/dL LABDE SCAN Blood specimen (specimen) 03/21/2017 10:40 AM PACKING CHECKER Narrative BREEZE PFT - 03/22/2017 10:51 AM PACKING CHECKER Verified by Rhiannon Cain on 03/22/2017. Aime Vu MD LAB - BLOOD ORDERA BLES Performing Organization Address [facility] de Phone Number BREEZE PFT LABDE SCAN * Phosphorus (03/21/2017 10:40 AM PACKING CHECKER) Phosphorus (External) 2.9 2.3 - 4.7 mg/dL LABDE SCAN Blood specimen (specimen) 03/21/2017 10:40 AM PACKING CHECKER Narrative BREEZE PFT - 03/22/2017 10:51 AM PACKING CHECKER Verified by Rhiannon Cain on 03/22/2017. Aime Vu MD LAB - BLOOD ORDERA BLES Performing Organization Address [facility] de Phone Number BREEZE PFT LABDE SCAN * (ABNORMAL) Basic metabolic panel (03/21/2017 10:40 AM PACKING CHECKER) Sodium (External) 139 135 - 145 mmol/L [...] SCAN Blood specimen (specimen) 03/21/2017 10:40 AM PACKING CHECKER Narrative ERICKEZE PFT - 03/22/2017 10:51 AM PACKING CHECKER Verified by Rhiannon Cain on 03/22/2017. Aime Vu MD LAB - BLOOD ORDERA BLES BREEZE PFT LABDE SCAN * (ABNORMAL) CBC with platelets (03/21/2017 10:40 AM PACKING CHECKER) WBC Count (External) 2.7(L) 4.5 - 11.0 [...] SCAN Blood specimen (specimen) 03/21/2017 10:40 AM PACKING CHECKER Narrative BREEZE PFT - 03/22/2017 10:51 AM PACKING CHECKER Verified by Rhiannon Cain on 03/22/2017. Aime [...] as of this encounter Care Teams Protection Analyst Relationship Specialty Start Date End Date Rubén Boyle MD PCP - General Family Practice 03/08/16 Pamela Blanco STONE CLEANER [facility] [address] [place], [place] [address] Referring Physician 07/13/16 Pedro Segura MD [facility] [address] [place], [place] [address] Nephrology 10/03/16 Freddy Craft MD [address] [facility] 2A [place] [address] Assigned Gastroenterology Provider 02/08/20 Abdifatah Van MD [address] [facility] [address] [place] [address] Assigned Nephrology Provider 07/13/20 11/07/23 Nicole Carranza NP 420 [facility] 508 [place] [address] Assigned Heart and Vascular Provider 01/09/22 Andressa Ruiz PA-C 420 [facility] 803 [place] [address] Physician Petroleum Products Sales Representative Endocrinology, Diabetes, and Metabolism 03/01/22 Ashlyn Storm RN [facility] 711 [place] [address] Registered Nurse 03/03/22 09/15/22 Rubén Gunter [facility] [address] [place] [address] Assigned MTM Pharmacist 02/27/22 Andressa Ruiz PA-C 420 [facility] 803 [place] [address] Assigned Endocrinology Provider 03/13/22 09/07/23 Suzan Harry MD [address] [place] [address] Nephrology 06/30/23 Yasmeen Powers MD 500 [place] [address] Nephrology 10/24/23 Yasmeen Powers MD 500 [place] [address] Assigned Nephrology Provider 11/08/23 documented as of this encounter
--- OUTSIDE RECORDS SUMMARY | 2024-01-17 17:31 | XMS_ITS | Encounter Summary ---
Author Organization [place] Address [address] [place] [address] Care Team Providers Care Coating Machine Operator Helper Name Role Phone Rubén Boyle MD Primary Care Provider Pamela Blanco WATER JET OPERATOR Unavailable [phone] Pedro Segura MD Unavailable Freddy Craft MD Unavailable Abdifatah Van MD Unavailable Nicole Carranza WATER JET OPERATOR Unavailable [phone] Andressa Ruiz-C Unavailable [phone] Ashlyn Storm RN Unavailable Rubén Gunter [facility] Unavailable Andressa Ruiz-C Unavailable Suzan Harry MD Unavailable [phone] Yasmeen Powers MD Unavailable Yasmeen Powers MD Unavailable [phone] Encounter Details Date Type Department Care Team (Late st Contact Info) Description 01/17/2017 External Order Results [facility] 9[address] [place] [address] Social History Tobacco Use Types [...] documented as of this encounter Care Teams Coating Machine Operator Helper Relationship Specialty Start Date End Date Rubén Boyle MD PCP - General Family Practice 03/08/16 Pamela Blanco WATER JET OPERATOR [facility] [address] [place] [address] Referring Physician 07/13/16 Pedro Segura MD [facility] [address] [place] [address] Nephrology 10/03/16 Freddy Craft MD 516 [facility] 2A [place], [place] [address] Assigned Gastroenterology Provider 02/08/20 Abdifatah Van MD 717 [facility] [address] [place], [place] 4[address]84 Assigned Nephrology Provider 07/13/20 11/07/23 Nicole Carranza NP 420 [facility] 508 [place], [place] [address] Assigned Heart and Vascular Provider 01/09/22 Andressa Ruiz PA-C 420 [facility] 803 [place], [place] [address] Physician Volcanology Professor Endocrinology, Diabetes, and Metabolism 03/01/22 Ashlyn Storm, RN [facility] 711 [place], [place] [address] Registered Nurse 03/03/22 09/15/22 Rubén Gunter [facility] 909 [place], [place] [address] Assigned MTM Pharmacist 02/27/22 Andressa Ruiz PA-C 420 [facility] 803 [place], [place] [address] Assigned Endocrinology Provider 03/13/22 09/07/23 Suzan Harry MD [address] [place] [address] Nephrology 06/30/23 Yasmeen Powers MD 500 [place], [place] 7[address]175 Nephrology 10/24/23 Yasmeen Powers MD 500 [place], [place] 160545 Assigned Nephrology Provider 11/08/23 documented as of this encounter
--- OUTSIDE RECORDS SUMMARY | 2024-01-17 17:32 | XMS_ITS | Encounter Summary ---
Author Organization [place] Address [address] [place] [address] Care Team Providers Care Digester Capper Name Role Phone Rubén Boyle MD Primary Care Provider [phone] Pamela Blanco SPA DIRECTOR Unavailable Pedro Segura MD Unavailable [phone] Freddy Craft MD Unavailable [phone] Abdifatah Van MD Unavailable Nicole Carranza SPA DIRECTOR Unavailable [phone] Andressa Ruiz-C Unavailable [phone] Ashlyn Storm RN Unavailable Rubén Gunter [facility] Unavailable Andressa Ruiz-C Unavailable Suzan Harry MD Unavailable [phone] Yasmeen Powers MD Unavailable Yasmeen Powers MD Unavailable [phone] Encounter Details Date Type Department Care Team (Late st Contact Info) Description 11/03/2016 External Order Results [facility] 909 [place] [address] Social History Tobacco Use Types [...] documented as of this encounter Care Teams Digester Capper Relationship Specialty Start Date End Date Rubén Boyle MD PCP - General Family Practice 03/08/16 Pamela Blanco SPA DIRECTOR [facility] [address] [place] [address] Referring Physician 07/13/16 Pedro Segura MD [facility] [address] [place], [place] [address] Nephrology 10/03/16 Freddy Craft MD 516 [facility] 2A [place], [place] [address] Assigned Gastroenterology Provider 02/08/20 Abdifatah Van MD 717 [facility] [address] [place], [place] [address] Assigned Nephrology Provider 07/13/20 11/07/23 Nicole Carranza NP 420 [facility] 508 [place], [place] 5[address] Assigned Heart and Vascular Provider 01/09/22 Andressa uRiz PA-C 420 [facility] 803 [place], [place] [address] Physician Training Intern Endocrinology, Diabetes, and Metabolism 03/01/22 Ashlyn Storm, RN [facility] 711 [place] [address] Registered Nurse 03/03/22 09/15/22 Rubén Gunter [facility] 909 [place], [place] 0[address]385 Assigned MTM Pharmacist 02/27/22 Andressa Ruiz PA-C 420 [facility] 803 [place] [address] Assigned Endocrinology Provider 03/13/22 09/07/23 Suzan Harry MD 420 [place], [place] [address] Nephrology 06/30/23 Yasmeen Powers MD 500 [place], [place] 6[address] Nephrology 10/24/23 Yasmeen Powers MD 500 [place], [place] 560365 Assigned Nephrology Provider 11/08/23 documented as of this encounter
--- OUTSIDE RECORDS SUMMARY | 2024-01-17 17:32 | XMS_ITS | Encounter Summary ---
Author Organization [place] Address [address] [place] [address] Care Team Providers Care Semiconductor Manufacturing Technician Name Role Phone Rubén Boyle MD Primary Care Provider Pamela Blanco SALES SUPERINTENDENT Unavailable Pedor Segura MD Unavailable Freddy Craft MD Unavailable Abdifatah Van MD Unavailable Nicole Carranza SALES SUPERINTENDENT Unavailable Andressa Ruiz-C Unavailable Ashlyn Storm RN Unavailable Rubén Gunter [facility] Unavailable Andressa Ruiz-C Unavailable [phone] Suzan Harry MD Unavailable [phone] Yasmeen Powers MD Unavailable [phone] Yasmeen Powers MD Unavailable [phone] Encounter Details Date Type Department Care Team (Late st Contact Info) Description 12/30/2016 External Order Results [facility] 909 [place] [address] Social History Tobacco Use Types [...] as of this encounter Care Teams Semiconductor Manufacturing Technician Relationship Specialty Start Date End Date Rubén Boyle MD PCP - General Family Practice 03/08/16 Pamela Blanco SALES SUPERINTENDENT [facility] [address] [place] [address] Referring Physician 07/13/16 Pedro Segura MD [facility] [address] [place], [place] [address]137 Nephrology 10/03/16 Freddy Craft MD 516 [facility] 2[facility] [place], [place] [address] Assigned Gastroenterology Provider 02/08/20 Abdifatah Van MD 717 [facility] [address] [place] [address] Assigned Nephrology Provider 07/13/20 11/07/23 Nicole Carranza NP 420 [facility] 508 [place], [place] [address] Assigned Heart and Vascular Provider 01/09/22 Andressa Ruiz PA-C 420 [facility] 803 [place], [place] [address] Physician Movie Extra Endocrinology, Diabetes, and Metabolism 03/01/22 Ashlyn Storm, RN [facility] 711 [facility] [place], [place] [address] Registered Nurse 03/03/22 09/15/22 Rubén Gunter [facility] 259 [place] [address] Assigned MTM Pharmacist 02/27/22 Andressa Ruiz PA-C 420 [facility] 803 [place] [address] Assigned Endocrinology Provider 03/13/22 09/07/23 Suzan Harry MD 420 [place] [address] Nephrology 06/30/23 Yasmeen Powers MD 500 [place] [address] Nephrology 10/24/23 Yasmeen Powers MD 500 [place] [address] Assigned Nephrology Provider 11/08/23 documented as of this encounter
--- OUTSIDE RECORDS SUMMARY | 2024-01-17 17:32 | XMS_ITS | Encounter Summary ---
Author Organization [place] Address [address] [place] [address] Care Team Providers Care Product Technology Scientist Name Role Phone Rubén Boyle MD Primary Care Provider Pamela Blanco RELIGION TEACHER Unavailable [phone] Pedro Segura MD Unavailable Freddy Craft MD Unavailable [phone] Abdifatah Van MD Unavailable Nicole Carranza RELIGION TEACHER Unavailable [phone] Andressa Ruiz-C Unavailable Ashlyn Storm RN Unavailable Rubén Gunter [facility] Unavailable Andressa Ruiz-C Unavailable Suzan Harry MD Unavailable [phone] Yasmeen Powers MD Unavailable Yasmeen Powers MD Unavailable [phone] Encounter Details Date Type Department Care Team (Late st Contact Info) Description 10/14/2016 External Order Results [facility] 909 [place] [address] Social History Tobacco Use Types [...] documented as of this encounter Care Teams Product Technology Scientist Relationship Specialty Start Date End Date Rubén Boyle MD PCP - General Family Practice 03/08/16 Pamela Blanco, GERMANIA [facility] [address] [place] [address] Referring Physician 07/13/16 Pedro Segura MD [facility] [address] [place] [address] Nephrology 10/03/16 Freddy Craft MD 516 [facility] 2A [place], [place] [address] Assigned Gastroenterology Provider 02/08/20 Abdifatah Van MD [address] [place] [address] 353 [place], [place] 9[address] Assigned Nephrology Provider 07/13/20 11/07/23 Nicole Carranza NP 420 [facility] 508 [place], [place] 27[address]15 Assigned Heart and Vascular Provider 01/09/22 Andressa Ruiz PA-C 420 [facility] 803 [place], [place] [address] Physician Forensic Sergeant Endocrinology, Diabetes, and Metabolism 03/01/22 Ashlyn Storm RN [facility] 711 [place], [place] [address] Registered Nurse 03/03/22 09/15/22 Rubén Gunter [facility] 909 [place], [place] 250365 Assigned MTM Pharmacist 02/27/22 Andressa Ruiz PA-C 420 [facility] 803 [place], [place] [address] Assigned Endocrinology Provider 03/13/22 09/07/23 Suzan Harry MD 420 [place], [place] 0[address] Nephrology 06/30/23 Yasmeen Powers MD 500 [place] [address] Nephrology 10/24/23 Yasmeen Powers MD 500 [place] [address] Assigned Nephrology Provider 11/08/23 documented as of this encounter
--- OUTSIDE RECORDS SUMMARY | 2024-01-17 17:32 | XMS_ITS | Encounter Summary ---
Author Organization [place] Address [address] [place] [address] Care Team Providers Care Reliability Technician Name Role Phone Rubén Boyle MD Primary Care Provider Pamela Blanco CLINICAL PSYCHOLOGIST Unavailable [phone] Pedro Segura MD Unavailable Freddy Craft MD Unavailable [phone] Abdifatah Van MD Unavailable Nicole Carranza CLINICAL PSYCHOLOGIST Unavailable [phone] Andressa Ruiz-C Unavailable Ashlyn Storm RN Unavailable [phone] Rubén Gunter [facility] Unavailable Andressa Ruiz-C Unavailable Suzan Harry MD Unavailable [phone] Yasmeen Powers MD Unavailable [phone] Yasmeen Powers MD Unavailable [phone] Encounter Details Date Type Department Care Team (Late st Contact Info) Description 09/23/2016 External Order Results [facility] 909 [place] [address] Social History Tobacco Use Types [...] documented as of this encounter Care Teams Reliability Technician Relationship Specialty Start Date End Date Rubén Boyle MD PCP - General Family Practice 03/08/16 Pamela Blanco NP [facility] [address] [place] [address] Referring Physician 07/13/16 Pedro Segura MD [facility] [address] [place] [address] Nephrology 10/03/16 Freddy Craft MD 516 [facility] 2A [place], [place] [address] Assigned Gastroenterology Provider 02/08/20 Abdifatah Van MD 717 [facility] [address] [place], [place] [address] Assigned Nephrology Provider 07/13/20 11/07/23 Nicole Carranza NP 420 [facility] 508 [place], [place] [address]455 Assigned Heart and Vascular Provider 01/09/22 Andressa Ruiz PA-C 420 [facility] 803 [place], [place] [address] Physician Isotope Technologist Endocrinology, Diabetes, and Metabolism 03/01/22 Ashlyn Storm, RN [facility] 711 [place] [address] Registered Nurse 03/03/22 09/15/22 Rubén Gunter [facility] 909 [place] [address] Assigned MTM Pharmacist 02/27/22 Andressa Ruiz PA-C 420 [facility] 803 [place] [address] Assigned Endocrinology Provider 03/13/22 09/07/23 Suzan Harry MD 420 [place] [address] Nephrology 06/30/23 Yasmeen Powers MD 500 [place], [place] 7[address] Nephrology 10/24/23 Yasmeen Powers MD 500 [place], [place] 694405 Assigned Nephrology Provider 11/08/23 documented as of this encounter
--- OUTSIDE RECORDS SUMMARY | 2024-01-17 17:32 | XMS_ITS | Encounter Summary ---
Author Organization [facility] Address [address] [place] [address] Care Team Providers Care Outdoor Illuminating Engineer Name Role Phone Rubén Boyle MD Primary Care Provider Pamela Blanco PHOTOGRAPHIC EDITOR Unavailable [phone] Pedro Segura MD Unavailable Freddy Craft MD Unavailable [phone] Abdifatah Van MD Unavailable Nicole Carranza PHOTOGRAPHIC EDITOR Unavailable [phone] Andressa Ruiz-C Unavailable Ashlyn Storm RN Unavailable [phone] Rubén Gunter [facility] Unavailable Andressa Ruiz-C Unavailable Suzan Harry MD Unavailable [phone] Yasmeen Powers MD Unavailable Yasmeen Powers MD Unavailable [phone] Encounter Details Date Type Department Care Team (Late st Contact Info) Description 09/22/2016 External Order Results [facility] 909 [place] [address] Social History Tobacco Use Types [...] documented as of this encounter Care Teams Outdoor Illuminating Engineer Relationship Specialty Start Date End Date Rubén Boyle MD PCP - General Family Practice 03/08/16 Pamela Blanco NP [address] [address] Referring Physician 07/13/16 Pedro Segura MD [facility] [address] [place] [address] Nephrology 10/03/16 Freddy Craft MD 516 [facility] 2A [place] [address] Assigned Gastroenterology Provider 02/08/20 Abdifatah Van MD 717 [facility] [address] 353 [place] [address] Assigned Nephrology Provider 07/13/20 11/07/23 Nicole Carranza NP 420 [facility] 508 [place], [place] 453325 Assigned Heart and Vascular Provider 01/09/22 Andressa Ruiz PA-C 420 [facility] 803 [place], [place] 322665 Physician Net Manager Endocrinology, Diabetes, and Metabolism 03/01/22 Ashlyn Storm RN [facility] 711 [place] [address] Registered Nurse 03/03/22 09/15/22 Rubén Gunter [facility] [address] [place] [address] 995115 Assigned MTM Pharmacist 02/27/22 Andressa Ruiz PA-C 420 [facility] 803 [place], [place] 332585 Assigned Endocrinology Provider 03/13/22 09/07/23 Suzan Harry MD [address] [place] [address] Nephrology 06/30/23 Yasmeen Powers MD 500 [place], [place] 480605 Nephrology 10/24/23 Yasmeen Powers MD 500 [place], [place] 475675 Assigned Nephrology Provider 11/08/23 documented as of this encounter
--- OUTSIDE RECORDS SUMMARY | 2024-01-17 17:32 | XMS_ITS | Encounter Summary ---
Author Organization [place] Address [address] [place] [address] Care Team Providers Care Tutoring Assistant Name Role Phone Rubén Boyle MD Primary Care Provider Pamela Blanco SET O TYPE OPERATOR Unavailable Pedro Segura MD Unavailable [phone] Freddy Craft MD Unavailable Abdifatah Van MD Unavailable Nicole Carranza SET O TYPE OPERATOR Unavailable [phone] Andressa Ruiz-C Unavailable Ashlyn Storm RN Unavailable Rubén Gunter [facility] Unavailable Andressa Ruiz-C Unavailable Suzan Harry MD Unavailable [phone] Yasmeen Powers MD Unavailable Yasmeen Powers MD Unavailable [phone] Encounter Details Date Type Department Care Team (Late st Contact Info) Description 12/22/2016 External Order Results [facility] 909 [place] [address] Social History Tobacco Use Types [...] documented as of this encounter Care Teams Tutoring Assistant Relationship Specialty Start Date End Date Rubén Boyle MD PCP - General Family Practice 03/08/16 Pamela Blanco SET O TYPE OPERATOR [facility] [address] [place] [address] Referring Physician 07/13/16 Pedro Segura MD [facility] [address] [place] [address] Nephrology 10/03/16 Freddy Craft MD 516 [facility] 2A [place], [place] 819525 Assigned Gastroenterology Provider 02/08/20 Abdifatah Van MD 717 [facility] [address] 353 [place], [place] 35098414 Assigned Nephrology Provider 07/13/20 11/07/23 Nicole Carranza NP 420 [facility] 508 [place], [place] 17385455 Assigned Heart and Vascular Provider 01/09/22 Andressa Ruiz PA-C 420 [facility] 803 [place] [address] Physician Extracorporeal Technician Endocrinology, Diabetes, and Metabolism 03/01/22 Ashlyn Storm, RN [facility] 711 [place] [address] Registered Nurse 03/03/22 09/15/22 Rubén Gunter [facility] [address] [place] [address] Assigned MTM Pharmacist 02/27/22 Andressa Ruiz PA-C 420 [facility] 803 [place] [address] Assigned Endocrinology Provider 03/13/22 09/07/23 Suzan Harry MD 420 [place] [address] Nephrology 06/30/23 Yasmeen Powers MD 500 [place], [place] 535495 Nephrology 10/24/23 Yasmeen Powers MD 500 [place], [place] 892265 Assigned Nephrology Provider 11/08/23 documented as of this encounter
--- OUTSIDE RECORDS SUMMARY | 2024-01-17 17:32 | XMS_ITS | Encounter Summary ---
Author Organization [facility] Address [address] [place] [address] Care Team Providers Care Caustic Room Operator Name Role Phone Rubén Boyle MD Primary Care Provider Pamela Blanco ZOO CARETAKER Unavailable [phone] Pedro Segura MD Unavailable Freddy Craft MD Unavailable Abdifatah Van MD Unavailable Nicole Carranza ZOO CARETAKER Unavailable [phone] Andressa Ruiz-C Unavailable Ashlyn Storm RN Unavailable Rubén Gunter [facility] Unavailable Andressa Ruiz-C Unavailable [phone] Suzan Harry MD Unavailable [phone] Yasmeen Powers MD Unavailable Yasmeen Powers MD Unavailable [phone] Encounter Details Date Type Department Care Team (Late st Contact Info) Description 10/26/2016 External Order Results [facility] 909 [place] [address] Social History Tobacco Use Types [...] as of this encounter Care Teams Caustic Room Operator Relationship Specialty Start Date End Date Rubén Boyle MD PCP - General Family Practice 03/08/16 Pamela Blanco ZOO CARET[address]ER [facility] [address] [place] [address] Referring Physician 07/13/[address] [facility] [address] [place] [address] Nephrology 10/03/16 Freddy Craft MD 516 [facility] 2A [place], [place] 856705 Assigned Gastroenterology Provider 02/08/20 Abdifatah Van MD 717 [facility] [address] 353 [place], [place] 382244 Assigned Nephrology Provider 07/13/20 11/07/23 Nicole Carranza NP 420 [facility] 508 [place], [place] 018575 Assigned Heart and Vascular Provider 01/09/22 Andressa Ruiz PA-C 420 [facility] 803 [place], [place] 753325 Physician Tool And Die Maker Level Five Endocrinology, Diabetes, and Metabolism 03/01/22 Ashlny Storm, RN [facility] 711 [place], [place] 55596414 Registered Nurse 03/03/22 09/15/22 Rubén Gunter [facility] 909 [place], [place] 16649455 Assigned MTM Pharmacist 02/27/22 Andressa Ruiz PA-C 420 [facility] 803 [place], [place] 225515 Assigned Endocrinology Provider 03/13/22 09/07/23 Suzan Harry MD [address] [place] [address] 230095 Nephrology 06/30/23 Yasmeen Powers MD 500 [place], [place] 073685 Nephrology 10/24/23 Yasmeen Powers MD 500 [place], [place] 292825 Assigned Nephrology Provider 11/08/23 documented as of this encounter
--- OUTSIDE RECORDS SUMMARY | 2024-01-17 17:32 | XMS_ITS | Encounter Summary ---
Author Organization [facility] Address [address] [place] [address] Care Team Providers Care Banana Grader Name Role Phone Rubén Boyle MD Primary Care Provider Pamela Blanco PHARMACY SERVICES DIRECTOR Unavailable Pedro Segura MD Unavailable Freddy Craft MD Unavailable Abdifatah Van MD Unavailable Nicole Carranza PHARMACY SERVICES DIRECTOR Unavailable [phone] Andressa Ruiz-C Unavailable Ashlyn Storm RN Unavailable Rubén Gunter [facility] Unavailable Andressa Ruiz-C Unavailable [phone] Suzan Harry MD Unavailable [phone] Yasmeen Powers MD Unavailable [phone] Yasmeen Powers MD Unavailable [phone] Encounter Details Date Type Department Care Team (Late st Contact Info) Description 12/27/2016 External Order Results [facility] 909 [place] [address] Social History Tobacco Use Types [...] PM CDTOrder(s) created erroneously. 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 [address] [place], [place] 571077 Referring Physician 07/13/[address] [facility] [address] [place], [place] 570647 Nephrology 10/03/16 Freddy Craft MD [address] [place] [address] Assigned Gastroenterology Provider 02/08/20 Abdifatah Van MD 717 [facility] [address] [place] [address] Assigned Nephrology Provider 07/13/20 11/07/23 Nicole Carranza NP 420 [facility] 508 [place], [place] 370775 Assigned Heart and Vascular Provider 01/09/22 Andressa Ruiz PA-C 420 [facility] 803 [place], [place] 824595 Physician Electro Mechanical Engineer Endocrinology, Diabetes, and Metabolism 03/01/22 Ashlyn Storm RN [facility] 711 [place], [place] 077094 Registered Nurse 03/03/22 09/15/22 Rubén Gunter [facility] 909 [place], [place] 734065 Assigned MTM Pharmacist 02/27/22 Andressa Ruiz PA-C 420 [facility] 803 [place], [place] 741805 Assigned Endocrinology Provider 03/13/22 09/07/23 Suzan Harry MD 420 [place], [place] 222295 Nephrology 06/30/23 Yasmeen Powers MD 500 [place], [place] 628825 Nephrology 10/24/23 Yasmeen Powers MD NPI: [id number] [place] [address] Assigned Nephrology Provider 11/08/23 documented as of this encounter
--- OUTSIDE RECORDS SUMMARY | 2024-01-17 17:32 | XMS_ITS | Encounter Summary ---
Author Organization [facility] Address [address] [place] [address] Care Team Providers Care Finishing Frame Runner Name Role Phone Rubén Boyle MD Primary Care Provider [phone] Pamela Blanco INSTRUCTIONAL INTERVENTIONIST Unavailable Pedro Segura MD Unavailable Freddy Craft MD Unavailable Abdifatah Van MD Unavailable Nicole Carranza INSTRUCTIONAL INTERVENTIONIST Unavailable [phone] Andressa Ruiz-C Unavailable Ashlyn Storm RN Unavailable [phone] Rubén Gunter [facility] Unavailable Andressa Ruiz-C Unavailable Suzan Harry MD Unavailable [phone] Yasmeen Powers MD Unavailable Yasmeen Powers MD Unavailable [phone] Encounter Details Date Type Department Care Team (Late st Contact Info) Description 11/09/2016 External Order Results [facility] 909 [place] [address] Social History Tobacco Use Types [...] documented as of this encounter Care Teams Finishing Frame Runner Relationship Specialty Start Date End Date Rubén Boyle MD PCP - General Family Practice 03/08/16 Pamela Blanco, INSTRUCTIONAL INTERVENTIONIST [facility] [address] [place] [address] Referring Physician 07/13/16 Pedro Segura MD [facility] [address] [place], [place] 713907 Nephrology 10/03/16 Freddy Craft MD 516 [facility] 2[facility] [place], [place] 931825 Assigned Gastroenterology Provider 02/08/20 Abdifatah Van MD 717 [facility] [address] 353 [place], [place] 707874 Assigned Nephrology Provider 07/13/20 11/07/23 Nicole Carranza NP 420 [facility] 508 [place], [place] 361285 Assigned Heart and Vascular Provider 01/09/22 Andressa Ruiz PA-C 420 [facility] 803 [place], [place] 275625 Physician Automotive Design Layout Drafter Endocrinology, Diabetes, and Metabolism 03/01/22 Ashlyn Storm, RN [facility] 711 [place], [place] 364054 Registered Nurse 03/03/22 09/15/22 Rubén Gunter [facility] 909 [place] [address] Assigned [place] Pharmacist 02/27/22 Andressa Ruiz PA-C 420 [facility] 803 [place], [place] 033585 Assigned Endocrinology Provider 03/13/22 09/07/23 Suzan Harry MD 420 [place], [place] 134165 Nephrology 06/30/23 Yasmeen Powers MD 500 [place] [address] Nephrology 10/24/23 Yasmeen Powers MD 500 [place] [address] Assigned Nephrology Provider 11/08/23 documented as of this encounter
--- OUTSIDE RECORDS SUMMARY | 2024-01-17 17:32 | XMS_ITS | Encounter Summary ---
Author Organization [facility] Address [address] [place] [address] Care Team Providers Care Port Captain Name Role Phone Rubén Boyle MD Primary Care Provider Pamela Blanco AUTOMATIC PRESSER Unavailable Pedro Segura MD Unavailable Freddy Craft MD Unavailable [phone] Abdifatah Van MD Unavailable Nicole Carranza AUTOMATIC PRESSER Unavailable [phone] Andressa Ruiz-C Unavailable Ashlyn Storm RN Unavailable [phone] Rubén Gunter [facility] Unavailable Andressa Ruiz-C Unavailable Suzan Harry MD Unavailable [phone] Yasmeen Powers MD Unavailable Yasmeen Powers MD Unavailable [phone] Encounter Details Date Type Department Care Team (Late st Contact Info) Description 11/17/2016 External Order Results [facility] 909 [place] [address] Social History Tobacco Use Types [...] documented as of this encounter Care Teams Port Captain Relationship Specialty Start Date End Date Rubén Boyle MD PCP - General Family Practice 03/08/16 Pamela Blanco NP [facility] [place] [address] [place] [address] Referring Physician 07/13/16 Pedro Segura MD [facility] [address] [place] [address] Nephrology 10/03/16 Freddy Craft MD 516 [facility] 2A [place] [address] Assigned Gastroenterology Provider 02/08/20 Abdifatah Van MD 717 [facility] [address] [place] [address] Assigned Nephrology Provider 07/13/20 11/07/23 Nicole Carranza NP 420 [facility] 508 [place], [place] 976855 Assigned Heart and Vascular Provider 01/09/22 Andressa Ruiz PA-C 420 [facility] 803 [place], [place] 188965 Physician Conveyor Line Battery Charger Endocrinology, Diabetes, and Metabolism 03/01/22 Ashlyn Storm RN [facility] 711 [place] [address] Registered Nurse 03/03/22 09/15/22 Rubén Gunter [facility] 909 [facility] [place] [address] Assigned MTM Pharmacist 02/27/22 Andressa Ruiz PA-C 420 [facility] 803 [place] [address] Assigned Endocrinology Provider 03/13/22 09/07/23 Suzan Harry MD [address] [place] [address] Nephrology 06/30/23 Yasmeen Powers MD 500 [place] [address] Nephrology 10/24/23 Yasmeen Powers MD 500 [place] [address] Assigned Nephrology Provider 11/08/23 documented as of this encounter
--- OUTSIDE RECORDS SUMMARY | 2024-01-17 17:32 | XMS_ITS | Encounter Summary ---
Author Organization [facility] Address [address] [place] [address] Care Team Providers Care Hvac Specialist Name Role Phone Rubén Boyle MD Primary Care Provider Pamela Blanco POWERHOUSE MECHANIC APPRENTICE Unavailable [phone] Pedro Segura MD Unavailable Freddy Craft MD Unavailable Abdifatah Van MD Unavailable Nicole Carranza POWERHOUSE MECHANIC APPRENTICE Unavailable [phone] Andressa Ruiz-C Unavailable Ashlyn Storm RN Unavailable Rubén Gunter [facility] Unavailable Andressa Ruiz-C Unavailable [phone] Suzan Harry MD Unavailable [phone] Yasmeen Powers MD Unavailable Yasmeen Powers MD Unavailable [phone] Encounter Details Date Type Department Care Team (Late st Contact Info) Description 11/23/2016 External Order Results [facility] 909 [place] [address] Social History Tobacco Use Types [...] documented as of this encounter Care Teams Hvac Specialist Relationship Specialty Start Date End Date Rubén Boyle MD PCP - General Family Practice 03/08/16 Pamela Blanco NP [facility] [address] [place] [address] Referring Physician 07/13/16 Pedro Segura MD [facility] [address] [place] [address] Nephrology 10/03/16 Freddy Craft MD 516 [facility] 2[facility] [place], [place] 32847[address] Assigned Gastroenterology Provider 02/08/20 Abdifatah Van MD 717 [facility] [address] 353 [place] [address] Assigned Nephrology Provider 07/13/20 11/07/23 Nicole Carranza NP 420 [facility] 508 [place], [place] 661845 Assigned Heart and Vascular Provider 01/09/22 Andressa Ruiz PA-C 420 [facility] 803 [place], [place] 105175 Physician Crating And Moving Estimator Endocrinology, Diabetes, and Metabolism 03/01/22 Ashlyn Storm, RN [facility] 711 [facility] SE [place], [place] 211794 Registered Nurse 03/03/22 09/15/22 Rubén Gunter [facility] 909 [place] [address] Assigned MTM Pharmacist 02/27/22 Andressa Ruiz PA-C 420 [facility] 803 [place], [place] 512165 Assigned Endocrinology Provider 03/13/22 09/07/23 Suzan Harry MD 420 [place], [place] 669525 Nephrology 06/30/23 Yasmeen Powers MD 500 [place], [place] 551725 Nephrology 10/24/23 Yasmeen Powers MD 500 [place] [address] Assigned Nephrology Provider 11/08/23 documented as of this encounter
--- OUTSIDE RECORDS SUMMARY | 2024-01-17 17:32 | XMS_ITS | Encounter Summary ---
Author Organization [facility] Address [address] [place] [address] Care Team Providers Care Local City Driver Name Role Phone Rubén Boyle MD Primary Care Provider Pamela Blanco WEB MARKETING ASSISTANT Unavailable [phone] Pedro Segura MD Unavailable Freddy Craft MD Unavailable Abdifatah Van MD Unavailable Nicole Carranza WEB MARKETING ASSISTANT Unavailable [phone] Andressa Riuz-C Unavailable [phone] Ashlyn Storm RN Unavailable Rubén Gunter [facility] Unavailable Andressa Ruiz-C Unavailable [phone] Suzan Harry MD Unavailable [phone] Yasmeen Powers MD Unavailable Yasmeen Powers MD Unavailable [phone] Encounter Details Date Type Department Care Team (Late st Contact Info) Description 09/17/2016 External Order Results [facility] 909 [place] [address] Social History Tobacco Use Types [...] documented as of this encounter Care Teams Local City Driver Relationship Specialty Start Date End Date Rubén Boyle MD PCP - General Family Practice 03/08/16 Pamela Blanco WEB MARKETING ASSISTANT [facility] [address] [place], [place] 043027 Referring Physician 07/13/16 Pedro Segura MD [facility] [address] [place], [place] 32[address] Nephrology 10/03/16 Freddy Craft MD 516 [facility] 2A [place] [address] Assigned Gastroenterology Provider 02/08/20 Abdifatah Van MD 717 [facility] [address] 353 [place] [address] Assigned Nephrology Provider 07/13/20 11/07/23 Nicole Carranza NP 420 [facility] 508 [place] [address] Assigned Heart and Vascular Provider 01/09/22 Andressa Ruiz PA-C 420 [facility] 803 [place] [address] Physician Plisse Machine Operator Helper Endocrinology, Diabetes, and Metabolism 03/01/22 Ashlyn Storm RN [facility] 711 [place], [place] 6727[address]14 Registered Nurse 03/03/22 09/15/22 Rubén Gunter [facility] 909 [place] [address] Assigned MTM Pharmacist 02/27/22 Andressa Ruiz PA-C 420 [facility] 803 [place], [place] 276045 Assigned Endocrinology Provider 03/13/22 09/07/23 Suzan Harry MD 420 [place], [place] 334445 Nephrology 06/30/23 Yasmeen Powers MD 500 [place], [place] 406625 Nephrology 10/24/23 Yasmeen Powers MD 500 [place], [place] 921055 Assigned Nephrology Provider 11/08/23 documented as of this encounter
--- OUTSIDE RECORDS SUMMARY | 2024-01-17 17:32 | XMS_ITS | Encounter Summary ---
Author Organization [place] Address [address] [place] [address] Care Team Providers Care Special Loan Officer Name Role Phone Rubén Boyle MD Primary Care Provider [phone] Pamela Blanco HAND QUILTER Unavailable [phone] Pedro Segura MD Unavailable Freddy Craft MD Unavailable Abdifaath Van MD Unavailable Nicole Carranza HAND QUILTER Unavailable [phone] Andressa Ruiz-C Unavailable Ashlyn Storm RN Unavailable Rubén Gunter [facility] Unavailable Andressa Ruiz-C Unavailable Suzan Harry MD Unavailable [phone] Yasmeen Powers MD Unavailable Yasmeen Powers MD Unavailable [phone] Encounter Details Date Type Department Care Team (Late st Contact Info) Description 10/13/2016 External Order Results [facility] 909 [place] [address] Social History Tobacco Use Types [...] as of this encounter Care Teams Special Loan Officer Relationship Specialty Start Date End Date Rubén Boyle MD PCP - General Family Practice 03/08/16 Pamela Blanco NP [facility] [address] [place] [address] Referring Physician 07/13/16 Pedro Segura MD [facility] [address] [place] [address] Nephrology 10/03/16 Freddy Craft MD 516 [facility] [place], [place] 436485 Assigned Gastroenterology Provider 02/08/20 Abdifatah Van MD 717 [facility] [address] 353 [place], [place] 128844 Assigned Nephrology Provider 07/13/20 11/07/23 Nicole Carranza NP 420 [facility] 508 [place], [place] 503295 Assigned Heart and Vascular Provider 01/09/22 Andressa Ruiz PA-C 420 [facility] 803 [place], [place] 0[address]135 Physician Paint Mixer Hand Endocrinology, Diabetes, and Metabolism 03/01/22 Ashlyn Storm, RN [facility] 711 [place], [place] 314034 Registered Nurse 03/03/22 09/15/22 Rubén Gunter [facility] 909 [facility] [address] [place], [place] 513955 Assigned MTM Pharmacist 02/27/22 Andressa Ruiz PA-C 420 [facility] 803 [place] [address] Assigned Endocrinology Provider 03/13/22 09/07/23 Suzan Harry MD 420 [place] [address] Nephrology 06/30/23 Yasmeen Powers MD 500 [place] [address] Nephrology 10/24/23 Yasmeen Powers MD 500 [place] [address] Assigned Nephrology Provider 11/08/23 documented as of this encounter
--- OUTSIDE RECORDS SUMMARY | 2024-01-17 17:32 | XMS_ITS | Encounter Summary ---
Author Organization [place] Address [address] [place] [address] Care Team Providers Care Operating Room Manager Name Role Phone Rubén Boyle MD Primary Care Provider Pamela Blanco ASSOCIATE ORACLE RETAIL Unavailable Pedro Segura MD Unavailable [phone] Freddy Craft MD Unavailable Abdifatah Van MD Unavailable Nicole Carranza ASSOCIATE ORACLE RETAIL Unavailable [phone] Andressa Ruiz-C Unavailable Ashlyn Storm RN Unavailable [phone] Rubén Gunter [facility] Unavailable Andressa Ruiz-C Unavailable Suzan Harry MD Unavailable [phone] Yasmeen Powers MD Unavailable Yasmeen Powers MD Unavailable [phone] Encounter Details Date Type Department Care Team (Late st Contact Info) Description 10/05/2016 External Order Results [facility] [address] [place] [address] Social History Tobacco Use Types [...] documented as of this encounter Care Teams Operating Room Manager Relationship Specialty Start Date End Date Rubén Boyle MD PCP - General Family Practice 03/08/16 Pamela Blanco NP [facility] [address] [place] [address] Referring Physician 07/13/16 Pedro Segura MD [place] [address] [place] [address] Nephrology 10/03/16 Freddy Craft MD [address] [place] [address] [address] [place] [address] Assigned Gastroenterology Provider 02/08/20 Abdifatah Van MD 717 [facility] [address] [place] [address] Assigned Nephrology Provider 07/13/20 11/07/23 Nicole Carranza, GERMANIA 420 [facility] 508 [place] [address] Assigned Heart and Vascular Provider 01/09/22 Andressa Ruiz PA-C 420 [facility] 803 [place] [address] Physician Rn Med Surg Endocrinology, Diabetes, and Metabolism 03/01/22 Ashlyn Storm, RN [facility] 711 [place] [address] Registered Nurse 03/03/22 09/15/22 Rubén Gunter [facility] [address] [place] [address] Assigned MTM Pharmacist 02/27/22 Andressa Ruiz PA-C 420 [facility] 803 [place] [address] Assigned Endocrinology Provider 03/13/22 09/07/23 Suzan Harry MD 420 [place] [address] Nephrology 06/30/23 Yasmeen Powers MD [address] [place] [address] Nephrology 10/24/23 Yasmeen Powers MD 500 [place] [address] Assigned Nephrology Provider 11/08/23 documented as of this encounter
--- OUTSIDE RECORDS SUMMARY | 2024-01-17 17:32 | XMS_ITS | Encounter Summary ---
Author Organization [place] Address [address] [place] [address] Care Team Providers Care Structural Fitter Name Role Phone Rubén Boyle MD Primary Care Provider Pamela Blanco PUMP SERVICER HELPER Unavailable Pedro Segura MD Unavailable Freddy Craft MD Unavailable Abdifatah Van MD Unavailable Nicole Carranza PUMP SERVICER HELPER Unavailable [phone] Andressa Ruiz-C Unavailable Ashlyn Storm RN Unavailable [phone] Rubén Gunter [facility] Unavailable Andressa Ruiz-C Unavailable [phone] Suzan Harry MD Unavailable [phone] Yasmeen Powers MD Unavailable [phone] Yasmeen Powers MD Unavailable [phone] Encounter Details Date Type Department Care Team (Late st Contact Info) Description 01/10/2017 External Order Results [facility] 9[address] [place] [address] Social History Tobacco Use Types [...] as of this encounter Care Teams Structural Fitter Relationship Specialty Start Date End Date Rubén Boyle MD PCP - General Family Practice 03/08/16 Pamela Blanco PUMP SERVICER HELPER [facility] [address] [place] [address] Referring Physician 07/13/16 Pedro Segura MD [facility] [address] [place] [address] Nephrology 10/03/16 Freddy Craft MD 516 [facility] 2A [place], [place] 777705 Assigned Gastroenterology Provider 02/08/20 Abdifatah Van MD 717 [facility] [address] [place], [place] [address] Assigned Nephrology Provider 07/13/20 11/07/23 Nicole Carranza, GERMANIA 420 [facility] [address] [place], [place] 969885 Assigned Heart and Vascular Provider 01/09/22 Andressa Ruiz PA-C 420 [facility] 803 [place], [place] [address] Physician Director Of Learning Endocrinology, Diabetes, and Metabolism 03/01/22 Ashlyn Storm, RN [facility] 711 [place], [place] 617794 Registered Nurse 03/03/22 09/15/22 Rubén Gunter R[facility] 909 [facility] [address] [place], [place] 136405 Assigned MTM Pharmacist 02/27/22 Andressa Ruiz PA-C 420 [facility] 803 [place] [address] Assigned Endocrinology Provider 03/13/22 09/07/23 Suzan Harry MD 420 [place] [address] Nephrology 06/30/23 Yasmeen Powers MD 500 [place] [address] Nephrology 10/24/23 Yasmeen Powers MD 500 [place] [address] Assigned Nephrology Provider 11/08/23 documented as of this encounter
--- OUTSIDE RECORDS SUMMARY | 2024-01-17 17:33 | XMS_ITS ---
Author Organization [place] Address [address] [place] [address] Care Team Providers Care Medical Insurance Collector Name Role Phone Rubén Boyle MD Primary Care Provider Pamela Blanco FURNACE CHECKER Unavailable [phone] Pedro Segura MD Unavailable Freddy Craft MD Unavailable Nicole Carranza FURNACE CHECKER Unavailable [phone] Andressa Ruiz-C Unavailable Suzan Harry MD Unavailable Yasmeen Powers MD Unavailable [phone] Yasmeen Powers MD Unavailable [phone] Transplant Episode Kidney Recipient [facility] ([place], [place]) - [place] Organ Received: 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 Marked as Active Follow-up on 07/11/2016 Kidney CoordinatorFelipa Raya RN Phone: N/A Fax: N/A Email: [email or web address] Donor Information Organ ABO Source Meets Risk [...] Felipa Raya RN Kidney Coordinator N/A N/A [email or web address] Freddy Dumont MD Gear Setter [phone] N/A Aime Vu MD Transplant Surgeon [phone] [email or web address] Events Post-Transplant Pre-Transplant Admitted: 07/02/2016 Referred: 06/15/2016 Transplanted: 07/11/2016 Evaluation began: 7 Discharged: 11/16/2016 Committee: 06/15/2016 Center waitlisted: 7 Dialysis History Dialysis History Start End Type Comments Center 05/05/2016
--- OUTSIDE RECORDS SUMMARY | 2024-01-17 17:33 | XMS_ITS | Clinical Summary ---
Author Organization [facility] Address [address] [place] [address] Care Team Providers Care Skiver Heel Tap Name Role Phone Elsewhere, Pcp Primary Care Provider Unavailabl e Source Comments Patient records contain information from all sites at [facility]. For routine questions regarding patient records, call [phone] during business hours, M-F 8:00 AM - 5:00 PM Central Time. Record requests for emergency care only can be directed to [phone] at any time.[facility] Allergies Active Allergy Reactions Criticality Noted Date [...] Gastroesophageal Reflux Disease Without Esophagi tis 01/26/2016 [facility] Use Of Insulin Active 12/29/2015 Hyperlipidemia 05/09/2015 [...] LAB BLOOD A DD-ON Performing Organization Address City/[facility]/ZIP Co de Phone Number [facility] [address] [place] [address], [facility] NPRG [place] [address] [place] [address] * (ABNORMAL) Hemoglobin A1c (12/14/2022 7:57 AM [...] LAB BLOOD A DD-ON Performing Organization Address City/[facility]/ZIP Co de Phone Number [facility] [address] [place] [address], [facility] [place] [address] [place] [address] from Last 3 Months or Most Recently Relevant to Health Maintenance Advance Directives For more information, please contact: [phone] Documents on File Type Date Recorded Patient Oil Expeller Expl anation Advance Directives 12/06/2022 12:[address] Care Teams Skiver Heel Tap Relationship Specialty Start Date End Date Elsewhere, Pcp PCP - General Internal Medicine 01/06/23
--- OUTSIDE RECORDS SUMMARY | 2024-01-17 17:33 | XMS_ITS ---
Author Organization [place] Address [address] [place] [address] Care Team Providers Care Contract Officer Name Role Phone Rubén Boyle MD Primary Care Provider Pamela Blanco SMOKE JUMPER SUPERVISOR Unavailable [phone] Pedro Segura MD Unavailable Freddy Craft MD Unavailable [phone] Nicole Carranza SMOKE JUMPER SUPERVISOR Unavailable [phone] Andressa Ruzi-C Unavailable [phone] Suzan Harry MD Unavailable [phone] Yasmeen Powers MD Unavailable [phone] Yasmeen Powers MD Unavailable [phone] Transplant Episode Liver Recipient [facility] [place] ([place], [place]) - [place] Organ Received: Liver Transplanted on 07/10/2016 Marked as Active Follow-up on 07/10/2016 Liver CoordinatorMalinda Alves RN Phone: N/A Fax: N/A Email: N/A [place] 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
--- OUTSIDE RECORDS SUMMARY | 2024-01-17 17:33 | XMS_ITS | Encounter Summary ---
Author Organization [place] Address [address] [place] [address] Care Team Providers Care Statistical Clerk Name Role Phone Rubén Boyle MD Primary Care Provider Pamela Blanco COUNSELOR SUPERVISOR Unavailable [phone] Pedro Segura MD Unavailable [phone] Freddy Craft MD Unavailable [phone] Abdifatah Van MD Unavailable Nicole Carranza COUNSELOR SUPERVISOR Unavailable [phone] Andressa Ruiz-C Unavailable Ashlyn Storm RN Unavailable Rubén Gunter [facility] Unavailable Andressa Ruiz-C Unavailable Suzan Harry MD Unavailable [phone] Yasmeen Powers MD Unavailable [phone] Yasmeen Powers MD Unavailable [phone] Encounter Details Date Type Department Care Team (Late st Contact Info) Description 09/06/2016 External Order Results [facility] [address] [place] [address] Social History Tobacco Use Types [...] as of this encounter Care Teams Statistical Clerk Relationship Specialty Start Date End Date Rubén Boyle MD PCP - General Family Practice 03/08/16 Pamela Blanco COUNSELOR SUPERVISOR [facility] [address] [place], [place] 139017 Referring Physician 07/13/16 Pedro Segura MD [facility] [address] [place], [place] 429037 Nephrology 10/03/16 Freddy Craft MD [address] [place] [address] 618895 Assigned Gastroenterology Provider 02/08/20 Abdifatah Van MD 717 [facility] [address] [place] [address] Assigned Nephrology Provider 07/13/20 11/07/23 Nicole Carranza NP 420 [facility] 508 [place] [address] Assigned Heart and Vascular Provider 01/09/22 Andressa Ruiz PA-C 420 [facility] 803 [place] [address] Physician Licensed Journeyman Electrician Endocrinology, Diabetes, and Metabolism 03/01/22 Ashlyn Storm RN [facility] 711 [place] [address] Registered Nurse 03/03/22 09/15/22 Rubén Gunter [facility] [address] [place] [address] Assigned MTM Pharmacist 02/27/22 Andressa Ruiz PA-C 420 [facility] 803 [place] [address] Assigned Endocrinology Provider 03/13/22 09/07/23 Suzan Harry MD 420 [place] [address] Nephrology 06/30/23 Yasmeen Powers MD 500 [place], [place] 0534[address] Nephrology 10/24/23 Yasmeen Powers MD 500 [place] [address] Assigned Nephrology Provider 11/08/23 documented as of this encounter
--- OUTSIDE RECORDS SUMMARY | 2024-01-17 17:33 | XMS_ITS | Encounter Summary ---
Author Organization [place] Address [address] [place] [address] Care Team Providers Care Home Advisor Name Role Phone Rubén Boyle MD Primary Care Provider Pamela Blanco MANAGER OF MEDICAL Unavailable Pamela Blanco MANAGER OF MEDICAL Unavailable Pedro Segura MD Unavailable [phone] Freddy Craft MD Unavailable [phone] Abdifatah Van MD Unavailable Nicole Carranza MANAGER OF MEDICAL Unavailable [phone] Andressa RuizC Unavailable Ashlyn Storm RN Unavailable Rubén Gunter [facility] Unavailable Andressa RuizC Unavailable [phone] Suzan Harry MD Unavailable [phone] Yasmeen Powers MD Unavailable [phone] Yasmeen Powers MD Unavailable [phone] Encounter Details Date Type Department Care Team (Late st Contact Info) Description 04/21/2016 [facility] Nephrology [address] [place] [address] Franco Burgess MD 717 [facility] [address] [place], [place] 073224 Social History Tobacco Use Types Packs/Day Years [...] as of this encounter Care Teams Home Advisor Relationship Specialty Start Date End Date Rubén Boyle MD PCP - General Family Practice 03/08/16 Pamela Blanco NP Referring Physician Gastroenterology 03/08/16 07/12/16 Pamela Blanco NP [facility] [address] [place] [address] Referring Physician 07/13/16 Pedro Segura MD [facility] [address] [place] [address] Nephrology 10/03/16 Freddy Craft MD [address] [facility] [address] [place], [place] 466285 Assigned Gastroenterology Provider 02/08/20 Abdifatah Van MD [address] [place] [address] 353 [place], [place] 187764 Assigned Nephrology Provider 07/13/20 11/07/23 Nicole Carranza NP 420 [facility] 508 [place], [place] 343575 Assigned Heart and Vascular Provider 01/09/22 Andressa Ruiz PA-C 420 [facility] [address] [place] [address] 424775 Physician Casino Assistant Manager Endocrinology, Diabetes, and Metabolism 03/01/22 Ashlyn Storm RN [facility] 711 [place], [place] 223664 Registered Nurse 03/03/22 09/15/22 Rubén Gunter [facility] [address] [place] [address] 149505 Assigned MTM Pharmacist 02/27/22 09/07/23 Andressa Ruiz PA-C [address] [address] Assigned Endocrinology Provider 03/13/22 09/07/23 Suzan Harry MD 420 [place], [place] 575665 Nephrology 06/30/23 Yasmeen Powers MD [address] [place] [address] 602525 Nephrology 10/24/23 Yasmeen Powers MD 500 [place], [place] 081935 Assigned Nephrology Provider 11/08/23 documented as of this encounter
--- OUTSIDE RECORDS SUMMARY | 2024-01-17 17:33 | XMS_ITS | Encounter Summary ---
Author Organization [place] Address [address] [place] [address] Care Team Providers Care Box Truck Owner Operator Name Role Phone Rubén Boyle MD Primary Care Provider [phone] Pamela Blanco INSTRUMENTATION MANAGER Unavailable Pamela Blanco INSTRUMENTATION MANAGER Unavailable [phone] Pedro Segura MD Unavailable [phone] Freddy Craft MD Unavailable Abdifatah Van MD Unavailable Nicole Carranza INSTRUMENTATION MANAGER Unavailable [phone] Andressa RuizC Unavailable Ashlyn Storm RN Unavailable [phone] Rubén Gunter [facility] Unavailable Andressa RuizC Unavailable [phone] Suzan Harry MD Unavailable [phone] Yasmeen Powers MD Unavailable Yasmeen Powers MD [...] documented as of this encounter Care Teams Box Truck Owner Operator Relationship Specialty Start Date End Date Rubén Boyle MD PCP - General Family Practice 03/08/16 Pamela Blanco NP Referring Physician Gastroenterology 03/08/16 07/12/16 Pamela Blanco NP [facility] [address] [place] [address] Referring Physician 07/13/16 Pedro Segura MD [facility] [address] [place] [address] Nephrology 10/03/16 Freddy Craft MD 516 [facility] [address] [place] [address] Assigned Gastroenterology Provider 02/08/20 Abdifatah Van MD [address] [facility] [address] [place] [address] Assigned Nephrology Provider 07/13/20 11/07/23 Nicole Carranza NP 420 [facility] 508 [place], [place] 345025 Assigned Heart and Vascular Provider 01/09/22 Andressa Ruiz PA-C 420 [facility] 803 [place], [place] 621075 Physician Plan Manager Endocrinology, Diabetes, and Metabolism 03/01/22 Ashlyn Storm, RN [facility] 711 [place], [place] 496914 Registered Nurse 03/03/22 09/15/22 Rubén Gunter [facility] [address] [place] [address] Assigned MTM Pharmacist 02/27/22 09/07/23 Andressa Ruiz PA-C 420 [facility] 803 [place], [place] 836345 Assigned Endocrinology Provider 03/13/22 09/07/23 Suzan Harry MD 420 [place], [place] 388705 Nephrology 06/30/23 Yasmeen Powers MD 500 [place], [place] 735055 Nephrology 10/24/23 Yasmeen Powers MD 500 [place], [place] 780095 Assigned Nephrology Provider 11/08/23 documented as of this encounter
--- OUTSIDE RECORDS SUMMARY | 2024-01-17 17:33 | XMS_ITS | Encounter Summary ---
Author Organization [place] Address [address] [place] [address] Care Team Providers Care Cutting Machine Operator Name Role Phone Rubén Boyle MD Primary Care Provider Pamela Blanco STORAGE GARAGE ATTENDANT Unavailable Pedro Segura MD Unavailable Freddy Craft MD Unavailable Abdifatah Van MD Unavailable Nicole Carranza STORAGE GARAGE ATTENDANT Unavailable [phone] Andressa Ruiz-C Unavailable Ashlyn Storm RN Unavailable [phone] Rubén Gunter [facility] Unavailable Andressa Ruiz-C Unavailable [phone] Suzan Harry MD Unavailable [phone] Yasmeen Powers MD Unavailable [phone] Yasmeen Powers MD Unavailable [phone] Encounter Details Date Type Department Care Team (Late st Contact Info) Description 08/30/2016 External Order Results [facility] [address] [place] [address] Social History Tobacco Use Types [...] documented as of this encounter Care Teams Cutting Machine Operator Relationship Specialty Start Date End Date Rubén Boyle MD PCP - General Family Practice 03/08/16 Pamela Blanco NP [facility] [address] [place] [address] Referring Physician 07/13/16 Pedro Segura MD [facility] [address] [place] [address] Nephrology 10/03/16 Freddy Craft MD 516 [facility] 2[facility] [place], [place] 509735 Assigned Gastroenterology Provider 02/08/20 Abdifatah Van MD 717 [facility] [address] [place], [place] 0[address]304 Assigned Nephrology Provider 07/13/20 11/07/23 Nicole Carranza NP 420 [facility] 508 [place], [place] 225715 Assigned Heart and Vascular Provider 01/09/22 Andressa Ruiz PA-C 420 [facility] 803 [place], [place] 7[address]885 Physician Fruit And Vegetable Packer Endocrinology, Diabetes, and Metabolism 03/01/22 Ashlyn Storm, RN [facility] 711 [place], [place] 157664 Registered Nurse 03/03/22 09/15/22 Rubén Gunter [facility] 909 [place] [address] Assigned MTM Pharmacist 02/27/22 Andressa Ruiz PA-C 420 [facility] 803 [place] [address] Assigned Endocrinology Provider 03/13/22 09/07/23 Suzan Harry MD 420 [place] [address] Nephrology 06/30/23 Yasmeen Powers MD 500 [place] [address] Nephrology 10/24/23 Yasmeen Powers MD 500 [place] [address] Assigned Nephrology Provider 11/08/23 documented as of this encounter
--- OUTSIDE RECORDS SUMMARY | 2024-01-17 17:33 | XMS_ITS | Encounter Summary ---
Author Organization [place] Address [address] [place] [address] Care Team Providers Care Pile Driver Name Role Phone Rubén Boyle MD Primary Care Provider Pamela Blanco ROLLER INSPECTOR AND MENDER Unavailable [phone] Pedro Segura MD Unavailable Freddy Craft MD Unavailable Abdifatah Van MD Unavailable Nicole Carranza ROLLER INSPECTOR AND MENDER Unavailable [phone] Andressa Ruiz-C Unavailable Ashlyn Storm RN Unavailable [phone] Rubén Gunter [facility] Unavailable Andressa Ruiz-C Unavailable Suzan Harry MD Unavailable [phone] Yasmeen Powers MD Unavailable [phone] Yasmeen Powers MD Unavailable [phone] Encounter Details Date Type Department Care Team (Late st Contact Info) Description 08/24/2016 External Order Results [facility] 909 [place] [address] Social History Tobacco Use Types [...] External Lab Result (08/13/2016 9:40 AM CDT) [facility] Tacrolimus(FK-5 06) (External) 6.8(L) 12 - [...] documented as of this encounter Care Teams Pile Driver Relationship Specialty Start Date End Date Rubén Boyle MD PCP - General Family Practice 03/08/16 Pamela Blanco NP [facility] [address] [place], [place] 85[address] Referring Physician 07/13/16 Pedro Segura MD [facility] [address] [place], [place] [address] Nephrology 10/03/16 Freddy Craft MD 516 [facility] [address] [place] [address] Assigned Gastroenterology Provider 02/08/20 Abdifatah Van MD [address] [place] [address] Assigned Nephrology Provider 07/13/20 11/07/23 Nicole Carranza NP [address] [facility] [address] [place], [place] 9[address]445 Assigned Heart and Vascular Provider 01/09/22 Andressa Ruiz PA-C [address] [facility] [address] [place], [place] 307005 Physician Document Improvement Specialist Endocrinology, Diabetes, and Metabolism 03/01/22 Ashlyn Storm, RN [facility] 711 [place] [address] Registered Nurse 03/03/22 09/15/22 Rubén Gunter [facility] 909 [place] [address] Assigned MTM Pharmacist 02/27/22 Andressa Ruiz PA-C 420 [facility] 803 [place], [place] 562265 Assigned Endocrinology Provider 03/13/22 09/07/23 Suzan Harry MD 420 [place], [place] 05[address]15 Nephrology 06/30/23 Yasmeen Powers MD 500 [place], [place] 510955 Nephrology 10/24/23 Yasmeen Powers MD 500 [place], [place] 974495 Assigned Nephrology Provider 11/08/23 documented as of this encounter
--- OUTSIDE RECORDS SUMMARY | 2024-01-17 17:33 | XMS_ITS | Encounter Summary ---
Author Organization [place] Address [address] [place] [address] Care Team Providers Care Project Eng Name Role Phone Rubén Boyle MD Primary Care Provider Pamela Blanco ARCHEOLOGY PROFESSOR Unavailable Pedro Segura MD Unavailable Freddy Craft MD Unavailable [phone] Abdifatah Van MD Unavailable Nicole Carranza ARCHEOLOGY PROFESSOR Unavailable [phone] Andressa Ruiz-C Unavailable Ashlyn Storm RN Unavailable Rubén Gunter [facility] Unavailable Andressa Ruiz-C Unavailable Suzan Harry MD Unavailable [phone] Yasmeen Powers MD Unavailable Yasmeen Powers MD Unavailable [phone] Encounter Details Date Type Department Care Team (Late st Contact Info) Description 08/25/2016 External Order Results [facility] 9[address] [place] [address] Social History Tobacco Use Types [...] documented as of this encounter Care Teams Project Eng Relationship Specialty Start Date End Date Rubén Boyle MD PCP - General Family Practice 03/08/16 Pamela Blanco NP [facility] [address] [place] [address] Referring Physician 07/13/16 Pedro Segura MD [facility] [address] [place], [place] 449077 Nephrology 10/03/16 Freddy Craft MD 516 [facility] [address] [place] [address] Assigned Gastroenterology Provider 02/08/20 Abdifatah Van MD 7[address] [facility] [address] [place] [address] Assigned Nephrology Provider 07/13/20 11/07/23 Nicole Carranza NP 420 [facility] 508 [place] [address] Assigned Heart and Vascular Provider 01/09/22 Andressa Ruiz PA-C 420 [facility] 803 [place] [address] Physician Inventory Representative Endocrinology, Diabetes, and Metabolism 03/01/22 Ashlyn Storm RN [facility] 711 [place] [address] Registered Nurse 03/03/22 09/15/22 Rubén Gunter [facility] [address] [place] [address] Assigned MTM Pharmacist 02/27/22 Andressa Ruiz PA-C [address] [place] [place], [place] [address] [place] [address] Assigned Endocrinology Provider 03/13/22 09/07/23 Suzan Harry MD [address] [place] [address] Nephrology 06/30/23 Yasmeen Powers MD 500 [place], [place] 957285 Nephrology 10/24/23 Yasmeen Powers MD 500 [place] [address] Assigned Nephrology Provider 11/08/23 documented as of this encounter
--- OUTSIDE RECORDS SUMMARY | 2024-01-17 17:33 | XMS_ITS | Encounter Summary ---
Author Organization [place] Address [address] [place] [address] Care Team Providers Care Job Superintendent Name Role Phone Rubén Boyle MD Primary Care Provider Pamela Blanco OCCUP THERAPIST Unavailable Pedro Segura MD Unavailable Freddy Craft MD Unavailable Abdifatah Van MD Unavailable Nicole Carranza OCCUP THERAPIST Unavailable [phone] Andressa Ruiz-C Unavailable Ashlyn Storm RN Unavailable Rubén Gunter [facility] Unavailable Andressa Ruiz-C Unavailable Suzan Harry MD Unavailable [phone] Yasmeen Powers MD Unavailable [phone] Yasmeen Powers MD Unavailable [phone] Encounter Details Date Type Department Care Team (Latest Contact Info) Description 09/02/2016 External Order Results [facility] 909 [place] [address] History of liver transplant (H); [...] Body Fluid Analysis Source [facility] Color Fluid Yellow [facility] Appearance Fluid Cloudy [facility] RBC Fluid << Do Not Report >> /uL [facility] WBC Fluid 1254 /uL [facility] % Neutrophils Fluid 82 % [facility] % Lymphocytes Fluid 1 % [facility] % Ferry/Macro Fluid 16 % [facility] % Basophils Fluid 1 % [facility] 09/02/2016 2:45 PM CDT 09/02/2016 4:01 PM CDT Aime Vu MD LAB - BODY FLUIDS ORDERABLES [facility] [address] [phone] * Triglyceride Fluid (09/02/2016 2:45 PM CDT) Triglyceride Fluid Source [facility] Triglyceride Fluid 362 mg/dL [facility] Comment: No reference ranges have been established. ??This result should be interpreted in the context of the patient's clinical condition and compared to simultaneous measurement in the patient's blood. ??Refer to Lab Guide for specific interpretive guidelines. Pleural fluid specimen (specimen) 09/02/2016 2:45 PM CDT 09/02/2016 4:01 PM CDT Aime Vu MD LAB - BODY FLUIDS ORDERABLES [id number] [place] [address] [phone] * (ABNORMAL) TXP External Lab Result (09/02/2016 [...] documented as of this encounter Care Teams Job Superintendent Relationship Specialty Start Date End Date Rubén Boyle MD PCP - General Family Practice 03/08/16 Pamela lBanco, OCCUP THERAPIST [facility] [address] [place] [address] Referring Physician 07/13/16 Pedro Segura MD [facility] [address] [place] [address] Nephrology 10/03/16 Freddy Craft MD 516 [facility] [address] [place], [place] 939485 Assigned Gastroenterology Provider 02/08/20 Abdifatah Van MD [address] [facility] [address] [place], [place] 740724 Assigned Nephrology Provider 07/13/20 11/07/23 Nicole Carranza NP 420 [facility] [address] [place], [place] 686545 Assigned Heart and Vascular Provider 01/09/22 Andressa Ruiz PA-C 420 [facility] 803 [place], [place] 668465 Physician Sorority Supervisor Endocrinology, Diabetes, and Metabolism 03/01/22 Ashlyn Storm RN [facility] 711 [place], [place] 315384 Registered Nurse 03/03/22 09/15/22 Rubén Gunter [facility] 909 [facility] [address] [place], [place] 276655 Assigned MTM Pharmacist 02/27/22 Andressa Ruiz PA-C 420 [facility] 803 [place], [place] 990825 Assigned Endocrinology Provider 03/13/22 09/07/23 Suzan Harry MD 420 [place], [place] 689105 Nephrology 06/30/23 Yasmeen Powers MD 500 [place], [place] 706285 Nephrology 10/24/23 Yasmeen Powers MD 500 [place] [address] Assigned Nephrology Provider 11/08/23 documented as of this encounter
--- OUTSIDE RECORDS SUMMARY | 2024-01-17 17:33 | XMS_ITS | Encounter Summary ---
Author Organization [place] Address [address] [place] [address] Care Team Providers Care Tipple Repairer Name Role Phone Rubén Boyle MD Primary Care Provider Pamela Blanco ASSEMBLER MECHANICAL ORDNANCE Unavailable Pedro Segura MD Unavailable Freddy Craft MD Unavailable Abdifatah Van MD Unavailable Nicole Carranza ASSEMBLER MECHANICAL ORDNANCE Unavailable [phone] Andressa Ruiz-C Unavailable Ashlyn Storm RN Unavailable [phone] Rubén Gunter [facility] Unavailable Andressa Ruiz-C Unavailable Suzan Harry MD Unavailable [phone] Yasmeen Powers MD Unavailable Yasmeen Powers MD Unavailable [phone] Encounter Details Date Type Department Care Team (Late st Contact Info) Description 08/25/2016 External Order Results [facility] 9[address] [place] [address] Social History Tobacco Use Types [...] documented as of this encounter Care Teams Tipple Repairer Relationship Specialty Start Date End Date Rubén Boyle MD PCP - General Family Practice 03/08/16 Pamela Blanco ASSEMBLER MECHANICAL ORDNANCE [facility] [address] [place] [address] Referring Physician 07/13/16 Pedro Segura MD [facility] [address] [place] [address] Nephrology 10/03/16 Freddy Craft MD 516 [facility] 2A [place], [place] 004155 Assigned Gastroenterology Provider 02/08/20 Abdifatah Van MD 717 [facility] [address] [place], [place] 152034 Assigned Nephrology Provider 07/13/20 11/07/23 Nicole Carranza NP 420 [facility] 508 [place], [place] 574225 Assigned Heart and Vascular Provider 01/09/22 Andressa Ruiz PA-C 420 [facility] 803 [place], [place] [address] Physician Star Route Mail Driver Endocrinology, Diabetes, and Metabolism 03/01/22 Ashlyn Storm, RN [facility] 711 [place], [place] 9779[address]14 Registered Nurse 03/03/22 09/15/22 Rubén Gunter [facility] 909 [place], [place] 2780[address] Assigned MTM Pharmacist 02/27/22 Andressa Ruiz PA-C 420 [facility] 803 [place] [address] Assigned Endocrinology Provider 03/13/22 09/07/23 Suzan Harry MD [address] [place] [address] Nephrology 06/30/23 Yasmeen Powers MD 500 [place], [place] 551895 Nephrology 10/24/23 Yasmeen Powers MD 500 [place], [place] 814925 Assigned Nephrology Provider 11/08/23 documented as of this encounter
--- OUTSIDE RECORDS SUMMARY | 2024-01-17 17:33 | XMS_ITS | Encounter Summary ---
Author Organization [place] Address [address] [place] [address] Care Team Providers Care Convenience Store Clerk Name Role Phone Rubén Boyle MD Primary Care Provider Pamela Blanco ASSISTANT UNIT FORESTER Unavailable Pedro Segura MD Unavailable Freddy Craft MD Unavailable Abdifatah Van MD Unavailable Nicole Carranza ASSISTANT UNIT FORESTER Unavailable [phone] Andressa Ruiz-C Unavailable Ashlyn Storm RN Unavailable [phone] Rubén Gunter [facility] Unavailable Andressa Ruiz-C Unavailable Suzan Harry MD Unavailable [phone] Yasmeen Powers MD Unavailable Yasmeen Powers MD Unavailable [phone] Encounter Details Date Type Department Care Team (Late st Contact Info) Description 08/24/2016 External Order Results [facility] 909 [place] [address] Social History Tobacco Use Types [...] documented as of this encounter Care Teams Convenience Store Clerk Relationship Specialty Start Date End Date Rubén Boyle MD PCP - General Family Practice 03/08/16 Pamela Blanco NP [facility] [address] [place] [address] Referring Physician 07/13/16 Pedro Segura MD [facility] [address] [place] [address] Nephrology 10/03/16 Freddy Craft MD 516 [facility] [place], [place] 523425 Assigned Gastroenterology Provider 02/08/20 Abdifatah Van MD 717 [facility] [address] [place], [place] 450374 Assigned Nephrology Provider 07/13/20 11/07/23 Nicole Carranza NP 420 [facility] 508 [place], [place] 022355 Assigned Heart and Vascular Provider 01/09/22 Andressa Ruiz PA-C 420 [facility] 803 [place], [place] 821595 Physician Registered Route Associate Endocrinology, Diabetes, and Metabolism 03/01/22 Ashlyn Storm RN [facility] 711 [place], [place] 37[address] Registered Nurse 03/03/22 09/15/22 Rubén Gunter [facility] 909 [place] [address] Assigned MTM Pharmacist 02/27/22 Andressa Ruiz PA-C 420 [facility] 803 [place] [address] Assigned Endocrinology Provider 03/13/22 09/07/23 Suzan Harry MD [address] [place] [address] Nephrology 06/30/23 Yasmeen Powers MD 500 [place] [address] Nephrology 10/24/23 Yasmeen Powers MD 500 [place] [address] Assigned Nephrology Provider 11/08/23 documented as of this encounter
--- OUTSIDE RECORDS SUMMARY | 2024-01-17 17:33 | XMS_ITS | Encounter Summary ---
Author Organization [place] Address [address] [place] [address] Care Team Providers Care Station Baggage Agent Name Role Phone Rubén Boyle MD Primary Care Provider Pamela Blanco APPARATUS CLEANER Unavailable Pedro Segura MD Unavailable [phone] Freddy Craft MD Unavailable Abdifatah Van MD Unavailable Nicole Carranza APPARATUS CLEANER Unavailable [phone] Andressa Ruiz-C Unavailable Ashlyn Storm RN Unavailable [phone] Rubén Gunter [facility] Unavailable Andressa Ruiz-C Unavailable Suzan Harry MD Unavailable [phone] Yasmeen Powers MD Unavailable Yasmeen Powers MD Unavailable [phone] Encounter Details Date Type Department Care Team (Late st Contact Info) Description 09/14/2016 External Order Results [facility] 909 [place] [address] Social History Tobacco Use Types [...] documented as of this encounter Care Teams Station Baggage Agent Relationship Specialty Start Date End Date Rubén Boyle MD PCP - General Family Practice 03/08/16 Pamela Blanco APPARATUS CLEANER [facility] [address] [place] [address] Referring Physician 07/13/16 Pedro Segura MD [facility] [address] [place], [place] 00[address]67 Nephrology 10/03/16 Freddy Craft MD 516 [facility] 2A [place], [place] [address] Assigned Gastroenterology Provider 02/08/20 Abdifatah Van MD 717 [facility] [address] [place], [place] [address]14 Assigned Nephrology Provider 07/13/20 11/07/23 Nicole Carranza NP 420 [facility] 508 [place], [place] 610735 Assigned Heart and Vascular Provider 01/09/22 Andressa Ruiz PA-C 420 [facility] 803 [place], [place] 7[address]65 Physician Rotational Moulding Operator Endocrinology, Diabetes, and Metabolism 03/01/22 Ashlyn Storm, RN [facility] 711 [place] [address] Registered Nurse 03/03/22 09/15/22 Rubén Gunter [facility] 909 [place], [place] 40147455 Assigned MTM Pharmacist 02/27/22 Andressa Ruiz PA-C 420 [facility] 803 [place] [address] Assigned Endocrinology Provider 03/13/22 09/07/23 Suzan Harry MD 420 [place] [address] Nephrology 06/30/23 Yasmeen Powers MD 500 [place], [place] 7[address] Nephrology 10/24/23 Yasmeen Powers MD 500 [place], [place] 175685 Assigned Nephrology Provider 11/08/23 documented as of this encounter
--- OUTSIDE RECORDS SUMMARY | 2024-01-17 17:33 | XMS_ITS | Encounter Summary ---
Author Organization [place] Address [address] [place] [address] Care Team Providers Care Die Engraver Name Role Phone Rubén Boyle MD Primary Care Provider Pamela Blanco SHOP STEWARD Unavailable Pedro Segura MD Unavailable Freddy Craft MD Unavailable Abdifatah Van MD Unavailable Nicole Carranza SHOP STEWARD Unavailable [phone] Andressa Ruiz-C Unavailable [phone] Ashlyn Storm RN Unavailable [phone] Rubén Gunter [facility] Unavailable Andressa Ruiz-C Unavailable Suzan Harry MD Unavailable [phone] Yasmeen Powers MD Unavailable Yasmeen Powers MD Unavailable [phone] Encounter Details Date Type Department Care Team [...] documented as of this encounter Care Teams Die Engraver Relationship Specialty Start Date End Date Rubén Boyle MD PCP - General Family Practice 03/08/[address] [facility] [address] [place], [place] 1558[address]37 Referring Physician 07/13/[address] [facility] [address] [place] [address] Nephrology 10/03/16 Freddy Craft MD 516 [facility] [address] [place] [address] Assigned Gastroenterology Provider 02/08/20 Abdifatah Van MD [address] [facility] [address] [place] [address] Assigned Nephrology Provider 07/13/20 11/07/23 Nicole Carranza NP 420 [facility] [address] [place], [place] 287185 Assigned Heart and Vascular Provider 01/09/22 Andressa Ruiz PA-C 420 [facility] 803 [place] [address] Physician Hot Packer Endocrinology, Diabetes, and Metabolism 03/01/22 Ashlyn Storm, RN [facility] 711 [place] [address] Registered Nurse 03/03/22 09/15/22 Rubén Gunter [facility] [address] [place] [address] Assigned MTM Pharmacist 02/27/22 Andressa Ruiz PA-C 420 [facility] 803 [place] [address] Assigned Endocrinology Provider 03/13/22 09/07/23 Suzan Harry MD 420 [place] [address] Nephrology 06/30/23 Yasmeen Powers MD 500 [place] [address] Nephrology 10/24/23 Yasmeen Powers MD 500 [place] [address] Assigned Nephrology Provider 11/08/23 documented as of this encounter
--- OUTSIDE RECORDS SUMMARY | 2024-01-17 17:33 | XMS_ITS | Encounter Summary ---
Author Organization [place] Address [address] [place] [address] Care Team Providers Care Bulk Sealer Operator Name Role Phone Rubén Boyle MD Primary Care Provider Pamela Blanco MARKETING COMMUNICATIONS ASSISTANT Unavailable [phone] Pedro Segura MD Unavailable Freddy Craft MD Unavailable Abdifatah Van MD Unavailable Nicole Carranza MARKETING COMMUNICATIONS ASSISTANT Unavailable [phone] Andressa Ruiz-C Unavailable [phone] Ashlyn Storm RN Unavailable Rubén Gunter [facility] Unavailable Andressa Ruiz-C Unavailable Suzan Harry MD Unavailable [phone] Yasmeen Powers MD Unavailable Yasmeen Powers MD Unavailable [phone] Encounter Details Date Type Department Care Team [...] as of this encounter Care Teams Bulk Sealer Operator Relationship Specialty Start Date End Date Rubén Boyle MD PCP - General Family Practice 03/08/[address] [facility] [address] [place], [place] [address] Referring Physician 07/13/[address] [facility] [address] [place] [address] Nephrology 10/03/16 Freddy Craft MD 516 [facility] [address] [place] [address] Assigned Gastroenterology Provider 02/08/20 Abdifatah Van MD 717 [facility] [address] [place] [address] Assigned Nephrology Provider 07/13/20 11/07/23 Nicole Carranza NP 420 [facility] SE [facility] 508 [place], [place] 746185 Assigned Heart and Vascular Provider 01/09/22 Andressa Ruiz PA-C 420 [facility] 803 [place] [address] Physician Transfusion Nurse Endocrinology, Diabetes, and Metabolism 03/01/22 Ashlyn Storm, RN [facility] 711 [place] [address] Registered Nurse 03/03/22 09/15/22 Rubén Gunter [facility] [address] [place] [address] Assigned MTM Pharmacist 02/27/22 Andressa Ruiz PA-C 420 [facility] 803 [place] [address] Assigned Endocrinology Provider 03/13/22 09/07/23 Suzan Harry MD 420 [place] [address] Nephrology 06/30/23 Yasmeen Powers MD 500 [place] [address] Nephrology 10/24/23 Yasmeen Powers MD 500 [place] [address] Assigned Nephrology Provider 11/08/23 documented as of this encounter
--- OUTSIDE RECORDS SUMMARY | 2024-01-17 17:33 | XMS_ITS | Encounter Summary ---
Author Organization [place] Address [address] [place] [address] Care Team Providers Care Electric Milkers Installer Name Role Phone Rubén Boyle MD Primary Care Provider Pamela Blanco SUPERVISOR CURING ROOM Unavailable Pedro Segura MD Unavailable Freddy Craft MD Unavailable Abdifatah Van MD Unavailable Nicole Carranza SUPERVISOR CURING ROOM Unavailable [phone] Andressa Ruiz-C Unavailable Ashlyn Storm RN Unavailable Rubén Gunter [facility] Unavailable Andressa Ruiz-C Unavailable Suzan Harry MD Unavailable [phone] Yasmeen Powers MD Unavailable [phone] Yasmeen Powers MD Unavailable [phone] Encounter Details Date Type Department Care Team (Late st Contact Info) Description 08/17/2016 External Order Results [facility] Trans[facility] 909 [place] [address] Social History Tobacco Use Types [...] as of this encounter Care Teams Electric Milkers Installer Relationship Specialty Start Date End Date Rubén Boyle MD PCP - General Family Practice 03/08/16 Pamela Blanco SUPERVISOR CURING ROOM [facility] [address] [place] [address] Referring Physician 07/13/16 Pedro Segura MD [facility] [address] [place], [place] 217827 Nephrology 10/03/16 Freddy Craft MD 516 [facility] [place], [place] 536275 Assigned Gastroenterology Provider 02/08/20 Abdifatah Van MD 717 [facility] [address] [place], [place] 724034 Assigned Nephrology Provider 07/13/20 11/07/23 Nicole Carranza NP 420 [facility] 508 [place], [place] 007865 Assigned Heart and Vascular Provider 01/09/22 Andressa Ruiz PA-C 420 [facility] 803 [place], [place] 161465 Physician Buggy Loader Endocrinology, Diabetes, and Metabolism 03/01/22 Ashlyn Storm, RN [facility] 711 [place], [place] 273334 Registered Nurse 03/03/22 09/15/22 Rubén Gunter [facility] 909 [place] [address] Assigned MTM Pharmacist 02/27/22 Andressa Ruiz PA-C 420 [facility] 803 [place] [address] Assigned Endocrinology Provider 03/13/22 09/07/23 Suzan Harry MD 420 [place] [address] Nephrology 06/30/23 Yasmeen Powers MD 500 [place] [address] Nephrology 10/24/23 Yasmeen Powers MD 500 [place] [address] Assigned Nephrology Provider 11/08/23 documented as of this encounter
--- OUTSIDE RECORDS SUMMARY | 2024-01-17 17:34 | XMS_ITS | Clinical Summary ---
Author Organization [employer] [facility] [employer] Address [place], [place] [address] Care Team Providers Care Tax Commissioner Name Role Phone Nikole Gibbs Trisha RN [...] 05/08/2015 Overview (05/08/2015): Painful Diabetic neuropathy. Uses Endeavor 7.5 mg - roughly 3 per day [...] to Care Guide Edilma Recinos Phone number [phone] Type 2 diabetes, HbA1C goal < 8% [...] Department Care Team Description 12/16/2023 Lab Requisition [facility] [phone] Cherelle Roman MD 12/16/2023 Lab Requisition [facility] [phone] Cherelle Roman MD from Last 3 Months [...] ABDOMEN PELVIS WO STAT 06/24/2022 2:30 PM FIXING MACHINE OPERATOR LIPID PANEL Routine 03/19/2019 9:30 AM FIXING MACHINE OPERATOR COLONOSCOPY SCREENING Routine 09/20/2013 Colon polyps from Last 3 Months or Most Recently Relevant to Health Maintenance Results * LAB TRACKING EVENT (12/15/2023 10:46 AM CDT) Other (Other) Client Collect / Unknown 12/15/2023 10:46 AM CDT 12/16/2023 12:35 AM CDT Cherelle Roman MD LAB BILL ONLY [facility] [address] [place] [address], * PATH TISSUE EXAM (12/15/2023 10:46 AM CDT) Case Report Pathology Report ?Case: [id number] ? Authorizing Provider: ??Cherelle Roman MD ?Collected: ? 12/15/2023 1046 ? Ordering Location: ? [facility] ?Received: ?12/16/2023 08 ? Pathologist: ? Bessy, Ulysses Jimmy ? IV, MD ? Specimens: ?? A) - Distal Esophagus Biopsy ? B) - Mid Esophagus Biopsy ? 12/20/2023 9:11 AM CDT [employer] [facility] Final Diagnosis A) ESOPHAGUS, DISTAL, BIOPSY: 1. Normal esophageal squamous mucosa 2. Negative for reflux changes and eosinophilic esophagitis 3. Negative for columnar mucosa B) ESOPHAGUS, MID, BIOPSY: 1. Normal esophageal squamous mucosa 2. Negative for reflux changes and eosinophilic esophagitis 3. Negative for columnar mucosa 12/20/2023 9:11 AM CDT [facility] Clinical Information Mr. Mora is a 73 y.o. who presents for follow-up of reflux esophagitis. EGD findings include: -Normal exam 12/20/2023 9:11 AM CDT [facility] Gross Description A) Received in formalin [...] 12/16/2023 11:20 AM 12/20/2023 9:11 AM CDT [facility] Microscopic Description The final diagnosis is based on microscopic examination of appropriate sections of all specimens. 12/20/2023 9:11 AM CDT [facility] Additional Information Interpreted at [facility] - [address], [place] [address] 12/20/2023 9:11 AM CDT [facility] Other (Distal Esophagus Biopsy) 12/15/2023 10:46 AM CDT 12/16/2023 8:21 AM CDT Specimen (specimen) (Mid Esophagus Biopsy) 12/15/2023 10:46 AM CDT 12/16/2023 8:21 AM CDT Cherelle Roman MD PATHOLOGY/CYTOLOGY [facility] [address] [place] [address], [place] * CT ABDOMEN PELVIS WO (06/24/2022 2:30 PM FIXING MACHINE OPERATOR) Anatomical Region Laterality Modality Abdomen, Pelvis, AORTA, LIVER, SPLEEN Computed Tomography 06/24/2022 3:18 PM FIXING MACHINE OPERATOR Narrative 06/24/2022 3:18 PM FIXING MACHINE OPERATOR For Patients: ??As a result of the [...] 06/24/2022 3:18:29 PM (Electronically Signed) Debi Alcantar BUSINESS TEACHER CT * (ABNORMAL) LIPID PANEL (03/19/2019 9:30 AM FIXING MACHINE OPERATOR) CHOLESTEROL,TOTAL 179 100 - 199 mg/dL 03/19/2019 9:59 AM FIXING MACHINE OPERATOR [facility] TRIGLYCERIDES 195(H) <150 mg/dL 03/19/2019 9:59 AM FIXING MACHINE OPERATOR [facility] HDL CHOLESTEROL 43 >40 mg/dL 9 9:59 AM FIXING MACHINE OPERATOR [facility] NON-HDL CHOLESTEROL 136 <145 mg/dl 03/19/2019 9:59 AM FIXING MACHINE OPERATOR [facility] CHOL/HDL RATIO 4.16 <4.50 03/19/2019 9:59 AM FIXING MACHINE OPERATOR [facility] LDL CHOLESTEROL 97 <=130 mg/dL 03/19/2019 9:59 AM FIXING MACHINE OPERATOR [facility] PROVIDER ORDERED STATUS FASTING 03/19/2019 9:59 AM FIXING MACHINE OPERATOR [facility] Blood BLOOD SPECIMEN / Unknown Butterfly / Unknown 03/19/2019 9:30 AM FIXING MACHINE OPERATOR 03/19/2019 9:35 AM FIXING MACHINE OPERATOR Freddy Dumont MD CHEMISTRY [address] [address] * COLONOSCOPY SCREENING (09/20/2013) Colby Kennedy MD GI PROCEDURE ORD from Last 3 Months or Most Recently Relevant to Health Maintenance Additional Health Concerns Infection Onset Date Last Indicated CLOSTRIDIUM DIFFICILE Comment:[facility] 09/22/2023 09/22/2023 Advance Directives Documents on File Type Date Recorded Patient Rural Carrier Expl anation Healthcare Directive 02/25/2016 12:00 AM [...] Code Status Discussion: Not Discussed Care Teams Tax Commissioner Relationship Specialty Start Date End Date Rubén Boyle MD [address] [place] [address] PCP - General Family Practice 09/08/21 Nikole Gibbs RN [address] [place] [address] Book Retailer 12/20/13
--- OUTSIDE RECORDS SUMMARY | 2024-01-17 17:34 | XMS_ITS | Continuity of Care Document ---
Author Organization [facility] Address [address] [address] [place] [address] Phone Care Team Providers Care Geochemical Manager Name Role Phone Leo Chisholm Unavailable Unavailable [...] on Encounter Subsqt Hosp-da E&m Minr Compl [facility], [address] [address], [place], [place], [id number], tel:[phone] [facility] No Information 3 Willian Bailey. [address] [facility] [address], [place], [id number] , [place]. tel:[phone] Referring Provider: Leo DESOUZA, [address] [facility] [address], [address] . tel:[phone] Init Hosp-da E&m Mod Severity [facility], [address] [address], [place], [place], [id number], tel:[phone] [facility] No Information 3 Rank MD [place]. [address] [facility] [address], [place], [place], [id number] , [place]. [phone] Referring Provider: Rubén Boyle MD, [address] [place], [address]. tel:[phone] Init Hosp-da E&m Mod Severity [facility], [address] [address], [place], [place], [address], [place] tel:[phone] [facility] No Information 6 Vignesh Proctor. [address], [id number] , [place]. [phone] Subsqt Hosp-da E&m Minr Compl [facility], [address] [address], [place], [place], [id number], [place] tel:[phone] [facility] No Information 6 Ruthann Mukherjee. [address], [id number] , [place]. [phone] Family History Family Member Type Diagnosis Age At Onset No Information Payers Payer name Insurance type Covered alliance party ID Authoriza tilisa(s) Blue [employer] [id number] Social History Type Description Quantity Date Captured [...]
--- OUTSIDE RECORDS SUMMARY | 2024-01-17 17:34 | XMS_ITS | Referral Summary ---
Author Organization [facility] Address [address] [place] [address] Care Team Providers Care Hot Die Press Feeder Name Role Phone Elsewhere, Pcp Primary Care Provider Unavailabl e Source Comments Patient records contain information from all sites at [facility]. For routine questions regarding patient records, call [phone] during business hours, M-F 8:00 AM - 5:00 PM Central Time. Record requests for emergency care only can be directed to [phone] at any time.[facility] Allergies Active Allergy Reactions Criticality Noted [...] Gastroesophageal Reflux Disease Without Esophagi tis 01/26/2016 Half-Way Use Of Insulin Active 12/29/2015 Hyperlipidemia 05/09/2015 [...] Romero APRN, C.N.P. LAB BLOOD A DD-ON [facility] [address] [place] [address], [facility] NPRG [place] [address] [place] [address] * (ABNORMAL) Hemoglobin A1c (12/14/2022 7:57 AM [...] Romero APRN, C.N.P. LAB BLOOD A DD-ON [facility] [address] [place] [address], [facility] [place] [address] [place] [address] from Last 3 Months or Most Recently Relevant to Health Maintenance Advance Directives For more information, please contact: [phone] Documents on File Type Date Recorded Patient Signs Sales Representative Expl anation Advance Directives 12/06/2022 12:[address] Care Teams Hot Die Press Feeder Relationship Specialty Start Date End Date Elsewhere, Pcp PCP - General Internal Medicine 01/06/23
--- OUTSIDE RECORDS SUMMARY | 2024-01-17 17:34 | XMS_ITS | Clinical Summary ---
Author Organization [facility] Address [address] [place] [address] Care Team Providers Care It Recruiter Name Role Phone Rubén Boyle MD Primary Care Provider Source Comments You are receiving this document as you are listed as the primary care provider,follow-up provider, or the patient has been referred to you for consultation.This is in compliance with the Medicare andPeoples Hospitalca[facility] EHR Incentive Program,which states Providers who transition their patient to another setting of careor provider of care or refers their patient to another provider of care shouldprovide summary care record for each transition of care or referral. [email or web address] County General HospitalSoftricity Allergies No known active allergies Medications Medication [...] Comments Blood Pressure 112/66 03/25/2016 10:51 AM LOAN AUDITOR Pulse 70 03/25/2016 10:51 AM LOAN AUDITOR Temperature 36.7 ??C (98.1 ??F) 03/19/2016 3:05 PM CS T Respiratory Rate 16 03/25/2016 10:5 1 AM LOAN AUDITOR Oxygen Saturation 99% 03/25/2016 10: 51 AM LOAN AUDITOR Inhaled Oxygen Concentration - - Weight 121.4 kg (267 lb 11.2 oz) 2015 10:50 AM LOAN AUDITOR Height 177.8 cm (5' 10) 03/02/2016 1:12 PM LOAN AUDITOR Body Mass Index 38.41 03/02/2016 1:12 PM LOAN AUDITOR Plan of Treatment Health Maintenance Due Date [...] / GFR STAT 03/19/2016 11:5 8 AM LOAN AUDITOR Chronic kidney disease, stage III (moderate) (HRC) HEPATITIS C ANTIBODY, WITH REFLEX Specified Time 02/06/2016 5:44 AM CDT from Last 3 Months or Most Recently Relevant to Health Maintenance Results * (ABNORMAL) Creatinine - today (03/19/2016 11:58 AM LOAN AUDITOR) Creatinine Serum 1.43(H) 0.73 - 1.18 mg/dL PN SOFT Est GFR Am >60 >60 mL/min/1.7 3m2 PN SOFT Est GFR Non-Afr Am 52(L) >60 mL/min/1.7 3m2 PN SOFT Comment: Normal>60, moderate decrease 30 - 59, severe decrease 15 - 29, renal failure <15 mL/min/1.73 m2 NOTE: ??Choose the eGFR result above appropriate for the race of the patient. 03/19/2016 11:5 8 AM LOAN AUDITOR 03/19/2016 12:01 PM LOAN AUDITOR Narrative PN SOFT - 03/19/2016 12:25 PM LOAN [place]UDITOR [place] [address] CLIA number [id number] Pedro Bundy MD LAB_1 Performing Organization Address [facility] de Phone Number [employer] [address] [place] [address] * Hepatitis C Virus Anette In-House (02/06/2016 5:44 AM CDT) Hepatitis C Antibody Nonreactive Nonreactive PN SOFT 02/06/2016 5:44 AM CDT 02/06/2016 6:13 AM CDT Narrative PN SOFT - 02/06/2016 7:03 [place] [address] CLIA number [id number] Prateek Langley MD LAB_1 Performing Organization Address [facility] de Phone Number [employer] [address] [place] [address] from Last 3 Months or Most Recently Relevant to Health Maintenance Advance Directives Documents on File Type Date Recorded Patient Power Line Lineman Expl anation Advance Directive/Living Will/Durable Power of Attny on file/POLST PN 02/04/2016 12:52 PM * Full Code (Latest Code Status on File) Date Activated Date Inactivated Comments 02/03/2016 5:53 PM 02/10/2016 6:17 PM Care Teams It Recruiter Relationship Specialty Start Date End Date Rubén Boyle MD [address] [address] PCP - General 09/29/15
--- OUTSIDE RECORDS SUMMARY | 2024-01-17 17:34 | XMS_ITS ---
Author Organization [facility] Address [address] [place] [address] Care Team Providers Care Rehab Physician Name Role Phone Unavailable Unavailable Unavailable Surgery Details Not on file Complications Check Surgery Details section. Procedure Estimated Blood Loss Check Surgery Details section. Procedure Findings Check Surgery Details section. Procedure Specimens Taken Check Surgery Details section.
[2024-01-17 17:42] LABS: Lactate Sepsis w/Reflex* 1.1 mmol/L (0.5-1.9)
[2024-01-17 17:48] LABS: Albumin* 4.7 g/dL (3.3-5.0)
[2024-01-17] MEDS: 0.9 % SODIUM CHLORIDE 1000 ml 1,000 ML IV (17:48)
[2024-01-17] MEDS: ONDANSETRON 2 MG/ML inj 4 MG IVP (17:48)
[2024-01-17 17:49] LABS: Chloride* 106 mmol/L (96-114); Potassium* 4.9 mmol/L (3.6-5.1); Sodium* 135 mmol/L (135-149)
[2024-01-17 17:51] LABS: Anion Gap 18 mEq/L (7-15); Aspartate Amino Transferase* 36 U/L (12-35); Bilirubin Total* 1.4 mg/dL (0.1-1.5); Carbon Dioxide* 11 mmol/L (20-32); Creatinine* 4.4 mg/dL (0.5-1.5); Estimated Glomerular Filt Rate 14 ml/min
[2024-01-17 17:52] LABS: Alanine Aminotransferase* 7 U/L (4-50); Alkaline Phosphatase* 90 U/L (40-150); Blood Urea Nitrogen* 67 mg/dL (7-30); Calcium* 9.3 mg/dL (8.4-10.6); Glucose* 193 mg/dL (60-115); Lipase* 61 U/L (23-300); Magnesium* 1.5 mg/dL (1.5-2.6); Total Protein* 7.7 g/dL (6.0-8.3)
[2024-01-17 18:05] LABS: Ammonia* < 9.0 umol/L (13.1-30.0)
[2024-01-17 18:29] LABS: PCR FLU A Negative PCR FLU A (Negative); PCR FLU B Negative PCR FLU B (Negative); SARS PCR* Negative SARS-CoV-2 (Negative)
[2024-01-17] MEDS: LACTATED RINGERS 1000 ML 1,000 ML 250 ML IV (20:16)
--- NOTE | 2024-01-17 20:37 | P.IMHP_ITS ---
Hospitalist- H&P: HPI History of Present Illness Date Seen: 01/17/24 Chief complaint: Ill Narrative: Bari Mora is a 73 yo M with h/o renal transplant, liver transplant (on azathioprine and tacrolimus), CHF, DM2, HTN, h/o recurrent C diff, esophagitis, GERD, BPH, hypertension, history of mitral regurgitation, history of alcoholism, TAVR, presenting to the ER today by EMS from his home. He had his flu shot last Tuesday. He woke up Tuesday morning with symptoms of diarrhea and abdominal pain. He has had multiple episodes of watery diarrhea ever since then. He says ?many? episodes when I ask him how much she has been having diarrhea. He is not able to count. He has had abdominal pain. He gestures that it is mostly in the middle of his abdomen cut really can not localize it more than that. He can not really describe any will exacerbating or alleviating factors to the pain. He says he has had a fever because is temperature is been measuring 98. He has been urinating less than normal but not having any dysuria or hematuria. No blood in his stool. He has been nauseous since Tuesday. He has had very little oral intake. Today started vomiting he has had 3 or 4 episodes of brownish emesis. No blood. He is feeling weak today. As much as I can gather, he called the ambulance because he is feeling weaker. A month ago he had upper endoscopy to evaluate his esophagitis and this was normal. This was in follow-up of an EGD 4 months ago where he had severe esophagitis. He has had recurrent hospitalizations for C diff infections with symptoms similar to current presentation, profound weakness, dehydration, diarrhea and altered mental status. From October 2022 through August 2023 he had 5 hospitalizations with C diff colitis. He was referred to [facility] but it is not clear that he ever followed through with that appointment. [facility] Medical History CHF (congestive heart failure) ?I50.9 - Heart failure, unspecified (ICD-10) BPH (benign prostatic hyperplasia) ?N40.0 - Benign prostatic hyperplasia without lower urinary tract symptoms (ICD-10) Adult failure to thrive ?R62.7 - Adult failure to thrive (ICD-10) HTN (hypertension) ?I10 - Essential (primary) hypertension (ICD-10) Type 2 diabetes mellitus, without long-term current use of insulin ?E11.9 - Type 2 diabetes mellitus without complications (ICD-10) Discharge planning issues ?Z75.8 - Other problems related to medical facilities and other health care (ICD-10) Abnormal CT scan, kidney ?R93.429 - Abnormal radiologic findings on diagnostic imaging of unspecified kidney (ICD-10) Esophageal thickening ?K22.89 - Other specified disease of esophagus (ICD-10) Recurrent colitis due to Clostridioides difficile ?A04.71 - Enterocolitis due to Clostridium difficile, recurrent (ICD-10) Major depression, recurrent ?F33.9 - Major depressive disorder, recurrent, unspecified (ICD-10) Chronic right hip pain ?M25.551 - Pain in right hip (ICD-10) ?G89.29 - Other chronic pain (ICD-10) Hypomagnesemia ?E83.42 - Hypomagnesemia (ICD-10) Penile ulcer ?N48.5 - Ulcer of penis (ICD-10) Low back pain ?M54.50 - Low back pain, unspecified (ICD-10) History of non-anemic folic acid deficiency ?Z86.39 - Personal history of other endocrine, nutritional and metabolic disease (ICD-10) History of colonic polyps (05/10/13) ?Z86.010 - Personal history of colonic polyps (ICD-10) Folic acid deficiency (01/22/16) ?E53.8 - Deficiency of other specified B group vitamins (ICD-10) Erectile dysfunction ?N52.9 - Male erectile dysfunction, unspecified (ICD-10) Controlled substance agreement signed (04/19/18) ?Z79.899 - Other terminal superintendent (current) drug therapy (ICD-10) Pancytopenia ?D61.818 - Other pancytopenia (ICD-10) Chronic kidney disease (CKD) ?N18.9 - Chronic kidney disease, unspecified (ICD-10) History of ETOH abuse ?F10.11 - Alcohol abuse, in remission (ICD-10) Mitral regurgitation ?I34.0 - Nonrheumatic mitral (valve) insufficiency (ICD-10) Diabetic neuropathy ?E11.40 - Type 2 diabetes mellitus with diabetic neuropathy, unspecified (ICD-10) GERD (gastroesophageal reflux disease) ?K21.9 - Gastro-esophageal reflux disease without esophagitis (ICD-10) Hyperlipidemia ?E78.5 - Hyperlipidemia, unspecified (ICD-10) Diverticulosis ?K57.90 - Diverticulosis of intestine, part unspecified, without perforation or abscess without bleeding (ICD-10) Surgical History Liver transplant recipient ?Z94.4 - Liver transplant status (ICD-10) Kidney transplant recipient ?Z94.0 - Kidney transplant status (ICD-10) History of coronary artery stent placement ?Z95.5 - Presence of coronary angioplasty implant and graft (ICD-10) S/P TAVR (transcatheter aortic valve replacement) ?Z95.2 - Presence of prosthetic heart valve (ICD-10) History of liver transplant (07/10/16) ?Z94.4 - Liver transplant status (ICD-10) History of decompression of ulnar nerve (1979) ?Z98.890 - Other specified postprocedural states (ICD-10) History of cataract extraction (2017) ?Z98.49 - Cataract extraction status, unspecified eye (ICD-10) 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) ?Z96.643 - Presence of artificial hip joint, bilateral (ICD-10) History of hip replacement ?Z96.649 - Presence of unspecified artificial hip joint (ICD-10) Hx of hernia repair ?Z98.890 - Other specified postprocedural states (ICD-10) ?Z87.19 - Personal history of other diseases of the digestive system (ICD-10) Family History Father Diabetes Coronary artery disease Sister Diabetes Social History (Updated 01/17/24 @ 22:05 by Juan Manuel Brown MD) Narrative: He lives in [place]. He lives by himself. He functions independently. He is retired. Remote history of smoking having quit about 20 years ago after a 10 pack year history. 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 Last drank in 2016. When he was hospitalized there are concerns with his ability to care for himself independently. Sometimes this goes well and sometimes it does not. He has success with state out of the hospital for the last 4 months. What is your current living situation?: I presently have a place to live Problems where you live: no known problems Problems where you live details: NA In the past 12 months, utilities in danger of being shut off: no In past 12 months, lack of transportation kept you from medical appts, meetings, work, or getting things needed for daily living: no In the past 12 mos, have been you worried that your food would run out before you had money to buy more?: never true In the past 12 mos, the food you bought just didn't last and you didn't have money to buy more?: never true Highest level of school completed/degree received: some college, no degree Smoking Status: Former smoker Do you use any of these nicotine containing products: None Second hand tobacco smoke exposure: No How often do you have a drink containing alcohol: never How often do you have six or more drinks on one occasion: Never AUDIT-C Alcohol total score: 0 Non-prescribed substance use: denies use Caffeine: No How often does anyone, including family, friends and others, physically hurt you : never How often does anyone, including family, friends and others, insult or talk down to you: never How often does anyone, including family, friends and others, threaten you with harm: never How often does anyone, including family, friends and others, scream or curse at you: never Little interest or pleasure in doing things: not at all Feeling down, depressed, or hopeless: not at all service: No Meds Home Medications and Allergies Home Medications ?Medication ?Instructions ?Recorded ?Confirmed ?Type aspirin 81 mg tablet,delayed 81 mg PO DAILY 10/22/21 01/17/24 History release (Adult Aspirin Regimen) azathioprine 50 mg tablet 150 mg PO DAILY 03/01/23 01/17/24 History ergocalciferol (vitamin D2) 50 mcg 50 mcg PO DAILY 09/12/23 01/17/24 History (2,000 unit) tablet tacrolimus 1 mg capsule, 3 mg PO Q12H 12/13/23 01/17/24 History immediate-release Home Medication Comments: He does not know his medications. He tells me he uses a pill box at home. He tells me he is definitely taking his anti rejection/transplant drugs Allergies Allergy/AdvReac Type Severity Reaction Status Date / Time phytonadione (vitamin K1) Allergy Intermediate Unknown Verified 12/13/23 15:33 Exam Narrative: Exam Narrative: He is alert and appears in no obvious distress. His oriented being in the hospital but cannot give much detail of recent events except as noted above. He does not recall significant past medical history. For example, he is unaware of having previous C diff infections causing hospitalization or having previous treatment for this. Head is without trauma. Oropharynx with dry mucous membranes. Neck is supple without mass or adenopathy. Respirations are clear to auscultation. No wheezing rales or rhonchi. Cardiovascular: S1, S2, regular rate and rhythm. Abdomen: Bowel sounds active. Abdomen is soft with mild diffuse tenderness. No mass. Extremities without edema. He has diminished but present pedal pulses. Hands and feet are somewhat cool to touch with sluggish capillary refill. No rash. Const: Vital Signs, click to edit/add: Vital Signs - 24 hr 01/17/24 16:06 01/17/24 16:15 01/17/24 17:07 Temperature 97.6 F Pulse Rate 104 H 104 H Pulse Rate [Pulse Oximeter] 106 H Respiratory Rate 18 Blood Pressure Blood Pressure [Ri ght Upper Arm] 134/98 H Pulse Oximetry 100 99 100 Oxygen Delivery Me thod Room Air 01/17/24 17:15 01/17/24 17:30 01/17/24 17:45 Temperature Pulse Rate 104 H 104 H 102 H Pulse Rate [Pulse Oximeter] Respiratory Rate Blood Pressure Blood Pressure [Ri ght Upper Arm] Pulse Oximetry 99 99 99 Oxygen Delivery Me thod 01/17/24 18:08 01/17/24 18:15 01/17/24 18:30 Temperature Pulse Rate 100 102 H 100 Pulse Rate [Pulse Oximeter] Respiratory Rate Blood Pressure Blood Pressure [Ri ght Upper Arm] Pulse Oximetry 98 70 L 99 Oxygen Delivery Mn thod 01/17/24 18:45 01/17/24 19:22 01/17/24 19:23 Temperature Pulse Rate 99 100 99 Pulse Rate [Pulse Oximeter] Respiratory Rate Blood Pressure 139/79 Blood Pressure [Ri ght Upper Arm] Pulse Oximetry 98 100 100 Oxygen Delivery Mn thod 01/17/24 19:30 Temperature Pulse Rate 99 Pulse Rate [Pulse Oximeter] Respiratory Rate Blood Pressure Blood Pressure [Ri ght Upper Arm] Pulse Oximetry 98 Oxygen Delivery Me thod Documenting provider has reviewed patient's vital signs: yes Hospitalist - H&P: Result Labs Labs: Short CBC 01/17/24 Range/Units 16:45 WBC 4.02 L (4.50-11.00) K/uL Hgb 12.3 L (13.5-17.5) gm/dL Hct 35.6 L (37.0-53.0) % Plt Count 180 (140-440) K/uL BMP 01/17/24 01/17/24 16:45 17:20 Sodium 135 135 Potassium 4.9 4.9 Chloride 105 106 Carbon Dioxide 10 L 11 L BUN 67 H 67 H Creatinine 4.3 H 4.4 H Glucose 194 H 193 H Calcium 9.4 9.3 Liver Function 01/17/24 Range/Units 17:20 Total Bilirubin 1.4 (0.1-1.5) mg/dL AST 36 H (12-35) U/L ALT 7 (4-50) U/L Alkaline Phosphatase 90 (40-150) U/L Albumin 4.7 (3.3-5.0) g/dL Imaging CT scan - abdomen: Radiologist's impression: Indication: Abdominal pain, vomiting, diarrhea, history of renal transplant, liver transplant Technique: Volumetric multidetector CT images of the abdomen and pelvis were without the administration of intravenous contrast. Comparison: CT chest, abdomen and pelvis March 18, 2023 Findings: There is minimal basilar atelectasis and parenchymal scar. Postoperative changes of the liver status post liver transplant similar to previous exam. No focal abnormality or inflammatory changes. The gallbladder is surgically absent. There is no significant common biliary ductal dilatation or abrupt cut off. The spleen is normal in attenuation and size. The stomach and duodenum are grossly unremarkable. There is mild pancreatic atrophy. The adrenal glands are unremarkable. Cystic changes of the left kidney are again seen. [place] kidneys demonstrate minimal nonspecific perinephric stranding. Transplant kidney in the right lower quadrant is again seen without evidence of obstruction. Moderate stool seen in the proximal colon with mild descending and sigmoid colonic diverticulosis without overt pericolonic inflammatory changes. The appendix is unremarkable. There is no significant mesenteric, retroperitoneal, or pelvic sidewall lymph nodes. The aorta is nonaneurysmal with mild scattered atherosclerotic calcification. The solid pelvic viscera are grossly unremarkable. There is no free fluid or free air. Postoperative change of the anterior abdominal wall is again appreciated. The lumbar vertebral body heights are grossly maintained with mild anterolisthesis of L4 on L5. There is moderate facet arthrosis. Impression: Postoperative change status post liver transplant and kidney transplant without evidence of obvious acute intra-abdominal abnormality or significant inflammatory change. Moderate colonic diverticulosis without definite evidence of diverticulitis. Decompressed appearance of the colon may obscure low-grade inflammatory changes. Assessment and Plan Assessment and plan (1) Acute renal failure: Problem comment: Creatinine of 4.4, about 3 times baseline of 1.4-1.6. Associated metabolic acidosis. Most likely due to acute pre renal azotemia from diarrhea and poor oral intake. With kidney transplant history also concerned about transplanted kidney. Attempted to transfer to [facility] transplant service but they have no ability to take him tonight-no beds. Status: Acute (2) Acute dehydration: Problem comment: Suspect C diff causing diarrhea and poor oral intake as a cause of his dehydration. Fluid resuscitation with a caution regarding his known heart failu re. Status: Acute (3) Diarrhea: Problem comment: Check for C diff. and stool culture. Status: Acute (4) Recurrent Clostridioides difficile diarrhea: Problem comment: Patient is having his 5th C diff episode of C diff colitis since October 2022. He is unable to recall any of his previous hospitalizations or treatments or evaluation for this. Unclear if he is getting appropriate follow-up evaluation. Previously referred to [facility] but probably did not make an appointment Status: Suspected (5) Adult failure to thrive: Problem comment: - recurrent hospitalizations with AMS, poor oral intake, probable noncompliance, profound weakness and concern about ability to care for himself - therapies followed during stay - patient has repeatedly declined SNF or any higher level of care or even home health nursing, brother is aware of this and checks on patient regularly Status: Acute (6) Type 2 diabetes mellitus, without long-term current use of insulin: Problem comment: Hold oral hypoglycemic pending return of normal diet. Insulin sliding scale. Status: Acute (7) Noncompliance with medications: Problem comment: - unclear home compliance, particularly with oral Vancomycin Status: Suspected (8) Physical debility: Problem comment: With each hospitalization he is profoundly weak and unable to care for himself. Does improve with IV fluids and treatment of C diff. Has stayed out of the [facility] for the last 4 months Status: Chronic (9) Acute alteration in mental status: Problem comment: Presents with his typical sluggish mental status, impaired memory, slow speech that he has on hospital admissions in the past. Metabolic encephalopathy most likely explanation Status: Resolved Plan Patient is admitted to the hospital for management of altered mental status, profound weakness, dehydration, diarrhea with presumed C diff infection, new severe acute kidney injury in a transplanted kidney. Fluid resuscitation, monitoring of renal function electrolytes. IV fluids, Renteria catheter until good urine output. If not improving attempt transfer to [facility] renal transplant service again. Total Time Spent Total Time Spent: Total time spent is 90 minutes in review of records and coordination of care and discussing with patient other providers management of acute kidney injury, transplant, dehydration, C diff colitis
[2024-01-17] MEDS: ATORVASTATIN 10 MG TABLET 20 MG PO (22:33)
[2024-01-17] MEDS: FAMOTIDINE 20 MG TABLET 40 MG PO (22:34)
[2024-01-17] MEDS: GABAPENTIN 300 MG CAPSULE PO (22:34)
[2024-01-17] MEDS: VANCOMYCIN 125 MG CAPSULE 250 MG PO (22:34)
[2024-01-17] MEDS: LACTATED RINGERS 1000 ML 1,000 ML 200 ML IV (23:42)
[2024-01-17] MEDS: TACROLIMUS 0.5 MG CAPSULE 3 MG PO (23:42)
[2024-01-18 00:33] LABS: Appearance Urine Clear (Clear); Bilirubin Urine 2+ (Negative); Blood Urine Negative (Negative); Color Urine Yellow (Yellow); Glucose Urine Negative (Negative); Ketones Urine 1+ (Negative); Leukocyte Esterase Urine Negative (Negative); Nitrite Urine Negative (Negative); Protein Urine Trace (Negative); Specific Gravity Urine 1.025 (1.000-1.030); Urobilinogen Urine 0.2 (0.2-1.0); pH Urine 5.5 (5.0-8.5)
[2024-01-18 00:54] LABS: Amorphous Sediment Urine Few; Bacteria Urine Few; RBC Urine 0-2 (0-2); Squamous Epithelial Cell Urine Few (None-Few); WBC Urine 0-2 (0-5)
[2024-01-18 02:12] VITALS: BP 120/86; PULSE 99; RESP 16; TEMP 36.5; O2SAT 100
[2024-01-18] MEDS: LACTATED RINGERS 1000 ML 1,000 ML 200 ML IV (05:10)
--- NOTE | 2024-01-18 06:03 | PC.NURSE ---
End of shift [id number]: Pt arrived to the unit @ 2104. Pt alert and oriented x4, calm, and flat affect. Pt had mild confusion during the admission process and answering questions regarding his history. IV running @ 200 mL per MD orders. Renteria catheter placed at 2300 01/17/2024. Patent and draining. 13 cc instilled. Pt denies pain/N/V. TELE: NSR, 1st degree. Pt was confused this am stating ?what hospital am I in? ?I need to leave today? ?Didn't a bunch of people come with me?? Pt stated that his bilateral lower extremities feel weak upon gathering weight. Pt appears resting with call light in reach. Bed alarm in place.
[2024-01-18 07:00] VITALS: BP 161/86; PULSE 102; PULSE 103; RESP 16; TEMP 36.9; O2SAT 100
[2024-01-18 07:02] LABS: Eosinophils Percent Auto 0.5 % (0.0-7.0); Hematocrit 33.4 % (37.0-53.0); Hemoglobin* 11.5 gm/dL (13.5-17.5); Immature Granulocytes Pct Auto 1.1 %; Lymphocytes Percent Auto 25.8 % (20-44); Mean Corpuscular HGB Conc 34 gm/dL (32-36); Mean Corpuscular Hemoglobin 32 pg (26-34); Mean Corpuscular Volume 92 fL (80-100); Monocytes Percent Auto 5.9 % (0.0-11.0); Neutrophils Percent Auto 66.7 % (42.0-72.0); Platelet Count* 178 K/uL (140-440); RDW Coefficient of Variation % 14.1 % (11.5-15.5); Red Blood Count 3.65 m/uL (4.30-5.90); White Blood Count* 3.76 K/uL (4.50-11.00)
[2024-01-18 07:14] LABS: Slide Review Reflex No
[2024-01-18 07:26] LABS: Chloride* 107 mmol/L (96-114); Potassium* 5.3 mmol/L (3.6-5.1); Sodium* 140 mmol/L (135-149)
[2024-01-18 07:28] LABS: Creatinine* 3.3 mg/dL (0.5-1.5); Est. Creatinine Clearance* 20.53; Estimated Glomerular Filt Rate 19 ml/min
[2024-01-18 07:29] LABS: Anion Gap 15 mEq/L (7-15); Blood Urea Nitrogen* 60 mg/dL (7-30); Carbon Dioxide* 18 mmol/L (20-32); Glucose* 149 mg/dL (60-115)
[2024-01-18 07:30] LABS: Calcium* 9.1 mg/dL (8.4-10.6)
[2024-01-18] MEDS: CITALOPRAM HYDROBROMIDE 20 MG TABLET PO (08:49)
[2024-01-18] MEDS: GABAPENTIN 300 MG CAPSULE PO ×2 (08:49→21:52)
[2024-01-18] MEDS: azaTHIOprine 50 MG TABLET 150 MG PO (08:49)
[2024-01-18] MEDS: VANCOMYCIN 125 MG CAPSULE PO ×4 (08:49→21:51)
[2024-01-18] MEDS: OMEPRAZOLE 20 MG CAPSULE DR PO ×2 (08:49→21:51)
[2024-01-18] MEDS: ASPIRIN 81 MG TABLET EC PO (08:49)
[2024-01-18] MEDS: SODIUM CHLORIDE 0.9 % (FLUSH) 10 ML SYRINGE 5 ML IVF (08:58)
[2024-01-18] MEDS: FUROSEMIDE 10 MG/ML inj 20 MG IVP (09:42)
[2024-01-18] MEDS: TACROLIMUS 0.5 MG CAPSULE 3 MG PO ×2 (09:52→21:45)
[2024-01-18 11:00] VITALS: BP 154/84; PULSE 100; RESP 16; TEMP 36.9; O2SAT 100
[2024-01-18] MEDS: 0.9 % SODIUM CHLORIDE 1000 ml 1,000 ML 150 ML IV ×2 (11:28→19:36)
--- NOTE | 2024-01-18 13:10 | P.IMPN_ITS ---
Progress Note: A&P Assessment and plan (1) Acute renal failure: Problem details: Creatinine of 4.4, about 3 times baseline of 1.4-1.6. Associated metabolic acidosis. Most likely due to acute pre renal azotemia from diarrhea and poor oral intake. With kidney transplant history also concerned about transplanted kidney. Attempted to transfer to [facility] transplant service but they have no ability to take him tonight-no beds. 01/17: Receivables Specialist 3.3, BUN 60, downtrending. Potassium 5.3, 4.9 on admission Continue IVF One time IV lasix dose given. Holding home dose 20mg daily. Recheck BMP at 1400pm Patient verbalizes he does not want to be transferred to the [facility] at this point, pending continued improvement. Understands he would need to be if worsening or no improvement Status: Acute (2) Acute dehydration: Problem details: Suspect C diff causing diarrhea and poor oral intake as a cause of his dehydration. Continue fluid resuscitation with a caution regarding his known heart failure Status: Acute (3) Diarrhea: Problem details: Check for C diff. and stool culture. No further stools since admission Status: Acute (4) Recurrent Clostridioides difficile diarrhea: Problem details: Patient is having his 5th C diff episode of C diff colitis since October 2022. He is unable to recall any of his previous hospitalizations or treatments or evaluation for this. Unclear if he is getting appropriate follow-up evaluation. Previously referred to [facility] but probably did not make an appointment Status: Suspected (5) Adult failure to thrive: Problem details: - recurrent hospitalizations with AMS, poor oral intake, probable noncompliance, profound weakness and concern about ability to care for himself - therapies followed during stay - patient has repeatedly declined SNF or any higher level of care or even home health nursing, brother is aware of this and checks on patient regularly Status: Acute (6) Type 2 diabetes mellitus, without long-term current use of insulin: Problem details: Hold oral hypoglycemic pending return of normal diet. Insulin sliding scale. Status: Acute (7) Noncompliance with medications: Problem details: - unclear home compliance, particularly with oral Vancomycin, though reports he is compliant Status: Suspected (8) Physical debility: Problem details: With each hospitalization he is profoundly weak and unable to care for himself. Does improve with IV fluids and treatment of C diff. Has stayed out of the hospital for the last 4 months Status: Chronic (9) Acute alteration in mental status: Problem details: Presents with his typical sluggish mental status, impaired memory, slow speech that he has on hospital admissions in the past. Metabolic encephalopathy most likely explanation. 10 Confusion clearing, oriented, still slow Status: Resolved (10) Hyperkalemia: Problem details: Potassium 5.3, 4.9 on admission. EKG on admission reviewed. IVF, single dose IV lasix. Recheck at 1400pm Status: Acute (11) Liver transplant recipient: Problem details: Continue tacrolimus, level sent out. Total bili 1.4 Followed by Transplant Clinic at the [facility] Status: Acute (12) Kidney transplant recipient: Problem details: Continue tacrolimus, level sent out. ROSANA as above Followed by Transplant Clinic at the [facility] Status: Acute Time Spent With Patient Total time spent: Total time spent caring for the patient today was 45 minutes. This includes time spent for the visit reviewing the chart, time spent during the visit, time spent after the visit and documentation and planning in coordination of care. Subjective Date Seen: 01/18/24 Interval history: Patient is seen lying in bed, reports feeling okay this morning. Better than on admission. Has had no stools since admission. Has empirically been started on vancomycin for history of recurrent C diff. remains afebrile. Feels as though confusion is improving, maybe still feeling slightly slowed. Is oriented. Continues with right-sided abdominal pain, yesterday reported as more generalized. No further nausea, no vomiting. Exam Narrative: Exam Narrative: PHYSICAL EXAM General: Flat, NAD HEENT: Normocephalic, atraumatic, sclera white, EOMI, oral mucosa moist Cardiovascular: RRR, S1S2. No pitting edema Pulmonary: CTA bilaterally without rhonchi, rales, expiratory wheezes. No dyspnea Abdominal: Soft, nondistended, mild tenderness mid to right abdomen without guarding Neurological: Alert, answering questions appropriately, cranial nerves intact, no focal findings Extremities: No gross joint deformity or swelling. AROMI. Neurovascularly intact Skin: Warm, dry. Const: Vital Signs, click to edit/add: Vital Signs - 24 hr 01/17/24 16:06 01/17/24 16:15 01/17/24 17:07 Temperature 97.6 F Pulse Rate 104 H 104 H Pulse Rate [Pulse Oximeter] 106 H Respiratory Rate 18 Blood Pressure Blood Pressure [Le ft Arm] Blood Pressure [Ri ght Upper Arm] 134/98 H Pulse Oximetry 100 99 100 Oxygen Delivery Me thod Room Air 01/17/24 17:15 01/17/24 17:30 01/17/24 17:45 Temperature Pulse Rate 104 H 104 H 102 H Pulse Rate [Pulse Oximeter] Respiratory Rate Blood Pressure Blood Pressure [Le ft Arm] Blood Pressure [Ri ght Upper Arm] Pulse Oximetry 99 99 99 Oxygen Delivery Me thod 01/17/24 18:08 01/17/24 18:15 01/17/24 18:30 Temperature Pulse Rate 100 102 H 100 Pulse Rate [Pulse Oximeter] Respiratory Rate Blood Pressure Blood Pressure [Le ft Arm] Blood Pressure [Ri ght Upper Arm] Pulse Oximetry 98 70 L 99 Oxygen Delivery De thod 01/17/24 18:45 01/17/24 19:22 01/17/24 19:23 Temperature Pulse Rate 99 100 99 Pulse Rate [Pulse Oximeter] Respiratory Rate Blood Pressure 139/79 Blood Pressure [Le ft Arm] Blood Pressure [Ri ght Upper Arm] Pulse Oximetry 98 100 100 Oxygen Delivery Me thod 01/17/24 19:30 01/17/24 20:00 01/17/24 20:30 Temperature Pulse Rate 99 100 96 Pulse Rate [Pulse Oximeter] Respiratory Rate Blood Pressure Blood Pressure [Le ft Arm] Blood Pressure [Ri ght Upper Arm] Pulse Oximetry 98 98 100 Oxygen Delivery Me thod 01/17/24 21:51 01/17/24 21:51 01/17/24 23:00 Temperature 98.1 F 97.8 F Pulse Rate Pulse Rate [Pulse Oximeter] 95 97 Respiratory Rate 14 16 Blood Pressure Blood Pressure [Le ft Arm] 151/77 H 153/84 H Blood Pressure [Ri ght Upper Arm] Pulse Oximetry 100 100 Oxygen Delivery Me thod Room Air Room Air Room Air 01/17/24 23:00 01/18/24 02:12 01/18/24 07:00 Temperature 97.7 F Pulse Rate 97 Pulse Rate [Pulse Oximeter] 99 102 H Respiratory Rate 16 16 Blood Pressure Blood Pressure [Le ft Arm] 120/86 Blood Pressure [Ri ght Upper Arm] Pulse Oximetry 100 Oxygen Delivery [facility] Room Air 01/18/24 07:00 01/18/24 07:00 01/18/24 11:00 Temperature 98.4 F 98.4 F Pulse Rate 103 H Pulse Rate [Pulse Oximeter] 102 H 100 Respiratory Rate 16 16 Blood Pressure Blood Pressure [Le ft Arm] 161/86 H 154/84 H Blood Pressure [Ri ght Upper Arm] Pulse Oximetry 100 100 Oxygen Delivery Me thod Room Air Room Air Labs Labs: Laboratory Results - last 24 hr 01/17/24 01/17/24 01/17/24 16:45 17:15 17:20 WBC 4.02 L RBC 3.90 L Hgb 12.3 L Hct 35.6 L MCV 91 MCH 32 MCHC 35 RDW Coeff of [place] 14.0 Plt Count 180 Neut % (Auto) 73.9 H Lymph % (Auto) 17.9 L [place] % (Auto) 5.7 Eos % (Auto) 0.5 Baso % (Auto) 0.5 Neut # (Auto) 3.00 Lymph # (Auto) 0.70 L [place] # (Auto) 0.20 Eos # (Auto) 0.00 Baso # (Auto) 0.00 Abs Immat Gran (auto) 0.10 Imm/Tot Granulo (auto) 1.5 Sodium 135 135 Potassium 4.9 4.9 Chloride 105 106 Carbon Dioxide 10 L 11 L Anion Gap 20 H 18 H BUN 67 H 67 H Creatinine 4.3 H 4.4 H Estimated Creat Clear 15.76 15.40 Estimated GFR 14 14 Glucose 194 H 193 H Lactate 1.1 Calcium 9.4 9.3 Magnesium 1.5 Total Bilirubin 1.4 AST 36 H ALT 7 Alkaline Phosphatase 90 Ammonia < 9.0 L Total Protein 7.7 Albumin 4.7 Lipase 61 Urine Color Urine Appearance Urine pH Ur Specific [place] Urine Protein Urine Glucose (UA) Urine Ketones Urine Blood Urine Nitrite Urine Bilirubin Urine Urobilinogen Ur Leukocyte Esterase Urine RBC Urine WBC Ur Squamous Epith Cells Amorphous Sediment Urine Bacteria SARS-CoV-2 (PCR) Negative SARS-CoV-2 Influenza Type A (PCR) Negative PCR FLU A Influenza Type B (PCR) Negative PCR FLU B 01/18/24 01/18/24 00:20 06:54 WBC 3.76 L RBC 3.65 L Hgb 11.5 L Hct 33.4 L MCV 92 MCH 32 MCHC 34 RDW Coeff of [place] 14.1 Plt Count 178 Neut % (Auto) 66.7 Lymph % (Auto) 25.8 [place] % (Auto) 5.9 Eos % (Auto) 0.5 Baso % (Auto) 0.0 Neut # (Auto) 2.50 Lymph # (Auto) 1.00 [place] # (Auto) 0.20 Eos # (Auto) 0.00 Baso # (Auto) 0.00 Abs Immat Gran (auto) 0.00 Imm/Tot Granulo (auto) 1.1 Sodium 140 Potassium 5.3 H Chloride 107 Carbon Dioxide 18 L Anion Gap 15 BUN 60 H Creatinine 3.3 H Estimated Creat Clear 20.53 Estimated GFR 19 Glucose 149 H Lactate Calcium 9.1 Magnesium Total Bilirubin AST ALT Alkaline Phosphatase Ammonia Total Protein Albumin Lipase Urine Color Yellow Urine Appearance Clear Urine pH 5.5 Ur Specific [place] 1.025 Urine Protein Trace A Urine Glucose (UA) Negative Urine Ketones 1+ A Urine Blood Negative Urine Nitrite Negative Urine Bilirubin 2+ A Urine Urobilinogen 0.2 Ur Leukocyte Esterase Negative Urine RBC 0-2 Urine WBC 0-2 Ur Squamous Epith Cells Few Amorphous Sediment Few A Urine Bacteria Few A SARS-CoV-2 (PCR) Influenza Type A (PCR) Influenza Type B (PCR)
[2024-01-18 15:00] VITALS: BP 122/63; PULSE 107; RESP 16; TEMP 36.9; O2SAT 100
[2024-01-18 15:06] LABS: Chloride* 108 mmol/L (96-114); Sodium* 137 mmol/L (135-149)
[2024-01-18 15:09] LABS: Anion Gap 16 mEq/L (7-15); Carbon Dioxide* 13 mmol/L (20-32); Creatinine* 2.9 mg/dL (0.5-1.5); Est. Creatinine Clearance* 23.36; Estimated Glomerular Filt Rate 22 ml/min
[2024-01-18 15:10] LABS: Blood Urea Nitrogen* 54 mg/dL (7-30); Calcium* 8.7 mg/dL (8.4-10.6); Glucose* 231 mg/dL (60-115)
--- NOTE | 2024-01-18 18:13 | PC.NURSE ---
End of shift: patient oriented earlier in the day. After a nap however, patient woke up confused and restless. Patient refused to take Vanco. MD aware and asked to keep trying since that is the only form of treatment for possible C-Diff. Sample is still pending. Patient is a 1-2 assist. Patient is weak and unable to get out of bed or walk to bathroom. Patient had 1 incontinent episode as a result of not being able to get up on time. Patient refusing to eat. Naps more than one hour per day. Patient afebrile and on RA.
[2024-01-18] MEDS: INSULIN ASPART 100 UNIT/ML SUBCUT (18:28)
[2024-01-18 20:09] LABS: C.Difficile Negative (Negative); CDIFFEPI 027 PRESUMPTIVE NEGATIVE (Negative)
[2024-01-18 20:15] VITALS: BP 145/83; PULSE 81; RESP 18; TEMP 36.4; O2SAT 100
[2024-01-18 21:48] VITALS: BP 155/82; PULSE 84; RESP 18; TEMP 36.9; O2SAT 100
[2024-01-18] MEDS: FAMOTIDINE 20 MG TABLET 40 MG PO (21:50)
[2024-01-18] MEDS: ATORVASTATIN 10 MG TABLET 20 MG PO (21:50)
[2024-01-18] MEDS: MELATONIN 3 MG TABLET PO (21:52)
[2024-01-19] MEDS: 0.9 % SODIUM CHLORIDE 1000 ml 1,000 ML 150 ML IV ×2 (02:08→09:13)
[2024-01-19 02:15] VITALS: BP 154/84; PULSE 83; RESP 16; TEMP 36.4; O2SAT 100
[2024-01-19 07:30] VITALS: BP 171/80; PULSE 87; RESP 16; TEMP 36.9; O2SAT 99
--- NOTE | 2024-01-19 07:56 | PC.NURSE ---
?Pt is alert and oriented to self only. Afebrile. Pt denies pain, chest pain, and N/V. Pt refused to take HS medications, MD Brown asked pt why he didn't want to take his medications pt responded I am done, MD Brown asked if pt wanted to continue living pt responded no MD Brown provided therapeutic communication and discussed with pt his change of choice in not wanting care/treatment, after pt agreed to take medications. Pt's Renteria catheter is patent and draining. Pt is up A2 with walker and gait belt.?
[2024-01-19 08:10] LABS: Hematocrit 32.5 % (37.0-53.0); Immature Granulocytes Pct Auto 0.7 %; Mean Corpuscular HGB Conc 34 gm/dL (32-36); Mean Corpuscular Hemoglobin 31 pg (26-34); Mean Corpuscular Volume 92 fL (80-100); Monocytes Percent Auto 9.2 % (0.0-11.0); Neutrophils Percent Auto 61.1 % (42.0-72.0); Platelet Count* 164 K/uL (140-440); RDW Coefficient of Variation % 14.5 % (11.5-15.5); Red Blood Count 3.52 m/uL (4.30-5.90); White Blood Count* 3.04 K/uL (4.50-11.00)
[2024-01-19 08:11] LABS: Slide Review Reflex No
[2024-01-19 08:35] LABS: Chloride* 109 mmol/L (96-114); Potassium* 4.4 mmol/L (3.6-5.1); Sodium* 140 mmol/L (135-149)
[2024-01-19 08:37] LABS: Creatinine* 2.4 mg/dL (0.5-1.5); Est. Creatinine Clearance* 28.23; Estimated Glomerular Filt Rate 28 ml/min
[2024-01-19 08:38] LABS: Anion Gap 8 mEq/L (7-15); Blood Urea Nitrogen* 44 mg/dL (7-30); Calcium* 8.7 mg/dL (8.4-10.6); Carbon Dioxide* 23 mmol/L (20-32); Glucose* 163 mg/dL (60-115)
[2024-01-19 08:43] LABS: Ammonia* < 9.0 umol/L (13.1-30.0)
[2024-01-19] MEDS: INSULIN ASPART 100 UNIT/ML SUBCUT ×4 (09:14→21:50)
[2024-01-19] MEDS: ASPIRIN 81 MG TABLET EC PO (09:15)
[2024-01-19] MEDS: GABAPENTIN 300 MG CAPSULE PO ×2 (09:15→21:44)
[2024-01-19] MEDS: VANCOMYCIN 125 MG CAPSULE PO (09:15)
[2024-01-19] MEDS: CITALOPRAM HYDROBROMIDE 20 MG TABLET PO (09:15)
[2024-01-19] MEDS: OMEPRAZOLE 20 MG CAPSULE DR PO ×2 (09:15→21:44)
[2024-01-19] MEDS: azaTHIOprine 50 MG TABLET 150 MG PO (09:16)
[2024-01-19] MEDS: TACROLIMUS 0.5 MG CAPSULE 3 MG PO ×2 (10:31→23:07)
[2024-01-19 11:00] VITALS: BP 148/59; PULSE 92; RESP 18; TEMP 36.6; O2SAT 99
--- NOTE | 2024-01-19 11:37 | P.IMPN_ITS ---
Progress Note: A&P Assessment and plan (1) Acute renal failure: Problem details: Creatinine of 4.4, about 3 times baseline of 1.4-1.6. Associated metabolic acidosis. Most likely due to acute pre renal azotemia from diarrhea and poor oral intake. With kidney transplant history also concerned about transplanted kidney. Attempted to transfer to [facility] transplant service but they have no ability to take him tonight-no beds. 01/17: Vat Skimmer 3.3, BUN 60, downtrending. Potassium 5.3, 4.9 on admission Continue IVF One time IV lasix dose given. Holding home dose 20mg daily. Recheck BMP at 1400pm Patient verbalizes he does not want to be transferred to the [facility] at this point, pending continued improvement. Understands he would need to be if worsening or no improvement 01/18: Creatinine 2.4, BUN 44, potassium 4.4. Restart home Lasix, monitoring renal function. Continue gentle IVF, trending labs, monitoring for fluid overload Status: Acute (2) Acute dehydration: Problem details: Suspect C diff causing diarrhea and poor oral intake as a cause of his dehydration - RULED OUT Continue gentle fluid resuscitation with a caution regarding his known heart failure Status: Acute (3) Diarrhea: Problem details: C diff negative. Stool culture pending. Only 1 BM during hospital course thus far Status: Acute (4) Recurrent Clostridioides difficile diarrhea: Problem details: Patient is having his 5th C diff episode of C diff colitis since October 2022. He is unable to recall any of his previous hospitalizations or treatments or evaluation for this. Unclear if he is getting appropriate follow-up evaluation. Previously referred to [facility] but probably did not make an appointment RULED OUT. Discontinue Vancomycin (patient reported as noncompliant with home dosing following previous discharge) Status: Ruled-out (5) Adult failure to thrive: Problem details: - recurrent hospitalizations with AMS, poor oral intake, probable noncompliance, profound weakness and concern about ability to care for himself - therapies followed during stay - patient has repeatedly declined SNF or any higher level of care or even home health nursing, brother is aware of this and checks on patient regularly PT/OT to assess Status: Acute (6) Type 2 diabetes mellitus, without long-term current use of insulin: Problem details: Restart glipizide. Continue Insulin sliding scale. Glucose > 200 past 24 hours, increasing scale Status: Acute (7) Noncompliance with medications: Problem details: - unclear home compliance, particularly with oral Vancomycin Status: Suspected (8) Physical debility: Problem details: With each hospitalization he is profoundly weak and unable to care for himself. Does improve with IV fluids and treatment of C diff. Has stayed out of the hospital for the last 4 months Status: Chronic (9) Acute alteration in mental status: Problem details: Presents with his typical sluggish mental status, impaired memory, slow speech that he has on hospital admissions in the past. Metabolic encephalopathy most likely explanation. 01/17 Confusion clearing, oriented, still slow 01/18 reported worsening overnight, improved again this morning, morning labs without new concerns, monitoring hospital delirium. No recent head CT, last was August 2023, could consider if necessary Status: Resolved (10) Hyperkalemia: Problem details: Potassium 5.3, 4.9 on admission. EKG on admission reviewed. IVF, single dose IV lasix. Improved to 4.4 Status: Resolved (11) Liver transplant recipient: Problem details: Continue tacrolimus, level sent out. Total bili 1.4 Followed by Transplant Clinic at the [facility] Status: Acute (12) Kidney transplant recipient: Problem details: Continue tacrolimus, level sent out. ROSANA as above Followed by Transplant Clinic at the [facility] Status: Acute (13) HTN (hypertension): Problem details: No recent medication management noted in EMR. Lasix recently added in setting of heart failure. History of medication noncompliance. Continue to monitor, considering addition of antihypertensive if necessary and willing to take Status: Acute Plan No further diarrhea. C diff negative. Creatinine down trending. AMS continues to wax and wane. Suspected noncompliance with home medications. Historically refusing SNF. Will ask PT/OT to assess again for us, needing safe discharge plan. Historically, typically clears after 3-4 hospital days and returns home. Time Spent With Patient Total time spent: Total time spent caring for the patient today was 45 minutes. This includes time spent for the visit reviewing the chart, time spent during the visit, time spent after the visit and documentation and planning in coordination of care. Subjective Date Seen: 01/19/24 Interval history: Patient seen this morning, lying in bed. Nursing staff reports increased confusion overnight. This morning he is oriented but remains slow, similar to yesterday morning. Cooperative this morning. Denies headache or dizziness. Denies chest pain or shortness of breath. Denies any further abdominal pain, this has resolved. Has remained afebrile. History of recurrent AMS with hospitalizations. Recheck of labs this morning, trending down appropriately, ammonia remains unremarkable. Empirically started on oral vancomycin for recurrent C difficile infections. Stool was collected yesterday after only a few doses of vancomycin, negative for DC difficile. Exam Narrative: Exam Narrative: PHYSICAL EXAM General: Flat, NAD Cardiovascular: RRR, S1S2. No pitting edema Pulmonary: CTA bilaterally without rhonchi, rales, expiratory wheezes. No dyspnea on room air Abdominal: Soft, nondistended, nontender Neurological: Alert, slowed, oriented x3 Extremities: No gross joint deformity or swelling. AROMI. Neurovascularly intact Skin: Warm, dry. Const: Vital Signs, click to edit/add: Vital Signs - 24 hr 01/18/24 15:00 01/18/24 15:00 01/18/24 20:15 Temperature 98.4 F 97.6 F Pulse Rate [Bilate ral Dorsalis Pedis ] Pulse Rate [Pulse Oximeter] 107 H 107 H 81 Respiratory Rate 16 16 18 Blood Pressure [Le ft Arm] 122/63 145/83 H Pulse Oximetry 100 100 Oxygen Delivery Me thod Room Air Room Air 01/18/24 21:48 01/18/24 21:48 01/19/24 02:15 Temperature 98.5 F 97.6 F Pulse Rate [Bilate ral Dorsalis Pedis ] Pulse Rate [Pulse Oximeter] 84 83 Respiratory Rate 18 18 16 Blood Pressure [Le ft Arm] 155/82 H 154/84 H Pulse Oximetry 100 100 Oxygen Delivery Me thod Room Air Room Air 01/19/24 07:30 Temperature 98.5 F Pulse Rate [Bilate ral Dorsalis Pedis ] 87 Pulse Rate [Pulse Oximeter] Respiratory Rate 16 Blood Pressure [Le ft Arm] 171/80 H Pulse Oximetry 99 Oxygen Delivery Nc thod Room Air Labs Labs: Laboratory Results - last 24 hr 01/18/24 01/18/24 01/19/24 11:22 14:06 07:33 WBC RBC Hgb Hct MCV MCH MCHC RDW Coeff of [place] Plt Count Neut % (Auto) Lymph % (Auto) [place] % (Auto) Eos % (Auto) Baso % (Auto) Neut # (Auto) Lymph # (Auto) [place] # (Auto) Eos # (Auto) Baso # (Auto) Abs Immat Gran (auto) Imm/Tot Granulo (auto) Sodium 137 Potassium 5.0 Chloride 108 Carbon Dioxide 13 L Anion Gap 16 H BUN 54 H Creatinine 2.9 H Estimated Creat Clear 23.36 Estimated GFR 22 Glucose 231 H Calcium 8.7 Ammonia Stl C. diff Tox B Gene Negative Stl C. diff [id number]-[id number] PRESUMPTIVE NEGATIVE Lab Acknowledgement Test Added 01/19/24 07:52 WBC 3.04 L RBC 3.52 L Hgb 11.0 L Hct 32.5 L MCV 92 MCH 31 MCHC 34 RDW Coeff of [place] 14.5 Plt Count 164 Neut % (Auto) 61.1 Lymph % (Auto) 28.0 [place] % (Auto) 9.2 Eos % (Auto) 1.0 Baso % (Auto) 0.0 Neut # (Auto) 1.90 Lymph # (Auto) 0.90 [place] # (Auto) 0.30 Eos # (Auto) 0.00 Baso # (Auto) 0.00 Abs Immat Gran (auto) 0.00 Imm/Tot Granulo (auto) 0.7 Sodium 140 Potassium 4.4 Chloride 109 Carbon Dioxide 23 Anion Gap 8 BUN 44 H Creatinine 2.4 H Estimated Creat Clear 28.23 Estimated GFR 28 Glucose 163 H Calcium 8.7 Ammonia < 9.0 L Stl C. diff Tox B Gene Stl C. diff [id number] Lab Acknowledgement
--- NOTE | 2024-01-19 11:41 | NUTR.NU ---
Nutrition: patient admit with acute renal failure, dehydration, altered mental status, diarrhea-possible c-diff. Patient history of kidney and liver transplant. Height 69, weight at admit 212.8 lbs, BMI 31.6. Weight today 220 lbs. No current diarrhea and c-diff ruled out. Previous admit in August, 09/15/23 weight 221 lbs, 09/16/23 weight 213.9 lbs. Diagnosis history includes but not limited to CHF, HTN, Type 2 DM and depression. 01/19/24 Na, K now within normal limits and BUN and Cre improved from admit of 67 and 4.4 respectively to 44 and 2.4 respectively. Diet order Regular. Intake 01/18/24 75% at lunch and 0 at supper. Breakfast today 75%. Continue to monitor diet tolerance, intake and labs and follow up as needed.
[2024-01-19 15:53] VITALS: BP 182/102; PULSE 96; RESP 20; TEMP 36.6; O2SAT 100
--- NOTE | 2024-01-19 18:12 | PC.NURSE ---
shift note: pt up 1-2/walker to bathroom and recliner. pt had 2 large loose stools. IV patent. khanna intact/patent. pt buttocks red.
[2024-01-19] MEDS: 0.9 % SODIUM CHLORIDE 1000 ml 1,000 ML 75 ML IV (18:59)
[2024-01-19 19:00] VITALS: BP 143/88; PULSE 88; RESP 15; TEMP 37.1; O2SAT 100
[2024-01-19] MEDS: ATORVASTATIN 10 MG TABLET 20 MG PO (21:43)
[2024-01-19] MEDS: FAMOTIDINE 20 MG TABLET 40 MG PO (21:44)
[2024-01-19] MEDS: TAMSULOSIN HCL 0.4 MG CAPSULE PO (21:44)
[2024-01-19] MEDS: SODIUM CHLORIDE 0.9 % (FLUSH) 10 ML SYRINGE 5 ML IVF (21:45)
[2024-01-19 23:00] VITALS: BP 154/77; PULSE 83; RESP 18; TEMP 37.3; O2SAT 100
[2024-01-20] VITALS (8 sets, daily range): BP systolic 113–146; BP diastolic 64–79; PULSE 72–99; RESP 16–18; TEMP 36.4–37.2; O2SAT 97–100
[2024-01-20 01:07] LABS: Tacrolimus by HPLC-MS/MS 36.1 ng/mL
[2024-01-20] MEDS: INSULIN ASPART 100 UNIT/ML SUBCUT ×4 (02:52→21:39)
[2024-01-20] MEDS: 0.9 % SODIUM CHLORIDE 1000 ml 1,000 ML 75 ML IV (06:46)
[2024-01-20 06:51] LABS: Eosinophils Percent Auto 1.7 % (0.0-7.0); Hematocrit 32.2 % (37.0-53.0); Hemoglobin* 11.2 gm/dL (13.5-17.5); Immature Granulocytes Pct Auto 0.5 %; Lymphocytes Percent Auto 31.7 % (20-44); Mean Corpuscular HGB Conc 35 gm/dL (32-36); Mean Corpuscular Hemoglobin 32 pg (26-34); Mean Corpuscular Volume 91 fL (80-100); Monocytes Percent Auto 7.8 % (0.0-11.0); Neutrophils Percent Auto 58.3 % (42.0-72.0); Platelet Count* 156 K/uL (140-440); Red Blood Count 3.53 m/uL (4.30-5.90)
--- NOTE | 2024-01-20 07:00 | PC.NURSE ---
Shift note ([id number]): Patient pleasant. Napped last?evening and slept well during night. Ambulated to the bathroom with walker, gait belt and one assist. Denied pain and offers no complaints. Blood sugars 156 and 163 this shift. Sliding scale insulin given. Catheter is patent with good urinary output; draining clear yellow urine.?
[2024-01-20 07:05] LABS: Slide Review Reflex No
[2024-01-20 07:12] LABS: Chloride* 109 mmol/L (96-114); Sodium* 137 mmol/L (135-149)
[2024-01-20 07:15] LABS: Anion Gap 5 mEq/L (7-15); Blood Urea Nitrogen* 31 mg/dL (7-30); Calcium* 8.9 mg/dL (8.4-10.6); Carbon Dioxide* 23 mmol/L (20-32); Creatinine* 1.9 mg/dL (0.5-1.5); Est. Creatinine Clearance* 35.66; Estimated Glomerular Filt Rate 37 ml/min; Glucose* 177 mg/dL (60-115)
[2024-01-20] MEDS: ASPIRIN 81 MG TABLET EC PO (08:32)
[2024-01-20] MEDS: CITALOPRAM HYDROBROMIDE 20 MG TABLET PO (08:32)
[2024-01-20] MEDS: GABAPENTIN 300 MG CAPSULE PO ×2 (08:32→21:34)
[2024-01-20] MEDS: FUROSEMIDE 20 MG TABLET PO (08:32)
[2024-01-20] MEDS: glipiZIDE 5 MG TABLET PO (08:33)
[2024-01-20] MEDS: azaTHIOprine 50 MG TABLET 150 MG PO (08:33)
[2024-01-20] MEDS: OMEPRAZOLE 20 MG CAPSULE DR PO ×2 (08:33→21:34)
[2024-01-20] MEDS: TACROLIMUS 0.5 MG CAPSULE 3 MG PO ×2 (10:08→21:35)
[2024-01-20] MEDS: OXYCODONE 5 MG TABLET PO (12:11)
--- NOTE | 2024-01-20 12:20 | PM.IMPN1 ---
Progress Note: A&P Assessment and plan (1) Acute renal failure: Problem details: Creatinine of 4.4, about 3 times baseline of 1.4-1.6. Associated metabolic acidosis. Most likely due to acute pre renal azotemia from diarrhea and poor oral intake. With kidney transplant history also concerned about transplanted kidney. Attempted to transfer to [facility] transplant service but they have no ability to take him tonight-no beds. 01/17: Bridge Engineer 3.3, BUN 60, downtrending. Potassium 5.3, 4.9 on admission Continue IVF One time IV lasix dose given. Holding home dose 20mg daily. Recheck BMP at 1400pm Patient verbalizes he does not want to be transferred to the [facility] at this point, pending continued improvement. Understands he would need to be if worsening or no improvement 01/18: Creatinine 2.4, BUN 44, potassium 4.4. Restart home Lasix, monitoring renal function. Continue gentle IVF, trending labs, monitoring for fluid overload 01/19: Cr 1.9, BUN 31, K 4.0. Oral intake normalizing. Saline lock IV. Monitor. Status: Acute (2) Acute dehydration: Problem details: Suspect C diff causing diarrhea and poor oral intake as a cause of his dehydration - RULED OUT Continue gentle fluid resuscitation with a caution regarding his known heart failure 01/19: Normalizing. Saline lock IV. Status: Acute (3) Diarrhea: Problem details: C diff negative. Stool culture pending. Only 1 BM during hospital course thus far 01/19: No further diarrhea in hospital at this time. Status: Acute (4) Recurrent Clostridioides difficile diarrhea: Problem details: Patient is having his 5th C diff episode of C diff colitis since October 2022. He is unable to recall any of his previous hospitalizations or treatments or evaluation for this. Unclear if he is getting appropriate follow-up evaluation. Previously referred to [facility] but probably did not make an appointment RULED OUT. Discontinue Vancomycin (patient reported as noncompliant with home dosing following previous discharge) Status: Ruled-out (5) Adult failure to thrive: Problem details: - recurrent hospitalizations with AMS, poor oral intake, probable noncompliance, profound weakness and concern about ability to care for himself - therapies followed during stay - patient has repeatedly declined SNF or any higher level of care or even home health nursing, brother is aware of this and checks on patient regularly PT/OT to assess Status: Acute (6) Type 2 diabetes mellitus, without long-term current use of insulin: Problem details: Restart glipizide. Continue Insulin sliding scale. Glucose > 200 past 24 hours, increasing scale 01/19: Glucose max 322 today. Oral intake is improved. Status: Acute (7) Noncompliance with medications: Problem details: - unclear home compliance, particularly with oral Vancomycin - 01/19: He acknowledges his memory has recently been problematic... Status: Suspected (8) Physical debility: Problem details: - With each hospitalization he is profoundly weak and unable to care for himself. Does improve with IV fluids and treatment of C diff. Has stayed out of the hospital for the last 4 months - Increase activities as tolerated Status: Chronic (9) Acute alteration in mental status: Problem details: Presents with his typical sluggish mental status, impaired memory, slow speech that he has on hospital admissions in the past. Metabolic encephalopathy most likely explanation. 01/17 Confusion clearing, oriented, still slow 01/18 reported worsening overnight, improved again this morning, morning labs without new concerns, monitoring hospital delirium. No recent head CT, last was August 2023, could consider if necessary 01/19: MOCA 15/30 today. 1 year ago MOCA 20/. We have previously recommended that he have additional outpatient comprehensive assessment of his cognition, which he agree to do, but has never followed up to this day. He continues to drive his own car at this time. We have previously advised him to not drive until he has adequate evaluation for this. We once again advise him to NOT drive until he has adequate assessment. Status: Resolved (10) Hyperkalemia: Problem details: Potassium 5.3, 4.9 on admission. EKG on admission reviewed. IVF, single dose IV lasix. Improved to 4.4 01/19: K 4 today. Saline lock IV. Monitor. Status: Resolved (11) Liver transplant recipient: Problem details: Continue tacrolimus, level sent out. Total bili 1.4 Followed by Transplant Clinic at the [facility] Status: Acute (12) Kidney transplant recipient: Problem details: Continue tacrolimus, level sent out. ROSANA as above Followed by Transplant Clinic at the [facility] Status: Acute (13) HTN (hypertension): Problem details: No recent medication management noted in EMR. Lasix recently added in setting of heart failure. History of medication noncompliance. Continue to monitor, considering addition of antihypertensive if necessary and willing to take Status: Acute Plan 1. I reviewed my impression and recommendations with the patient. 2. I answered the patient's questions to his satisfaction. 3. Review with him how his cognition and physical abilities are impaired enough at this time such that I recommend he not drive until he have additional appropriate assessment for this. 4. I again iterate to the patient that he needs comprehensive outpatient cognitive assessments. 5. Patient is agreeable with plans and recommendations at this time. Time Spent With Patient Total time spent: 40 minute Subjective Date Seen: 01/20/24 Interval history: Hospital day 4, admitted on 01/17/2024. Patient is more awake and interactive. He indicates he feels his mentation is improving. He tells me that he recognizes that he was not thinking clearly before he came to the hospital. He even acknowledges that he had a moment of clearer thinking in which she recognize 8 needed to come in that it is when he called for help. Appetite is only gradually improving. Denies pain or discomfort. Denies chest, neck, head, back, shoulder heaviness, pressure, tightness, or pain. Denies dyspnea at rest or dyspnea with exertion. Denies syncope or near-syncope. Denies nausea or vomiting. Indicates the diarrhea that he had is seemingly resolved. He denies fever, rigors, diaphoresis. Tolerating increased activity including walking to and from the bathroom with walker and standby assist. Exam Narrative: Exam Narrative: I examine him in his hospital room. Appears comfortable and in no acute distress. Slept in until late morning today. Awake, alert, oriented to self, place, time. Impart oriented to situation. Lungs clear to auscultation. Heart tones with regular rhythm. Abdomen with active bowel sounds, soft, nontender. Independent with transfers from supine to sitting and sitting to standing. Skin is intact without any obvious infections. No focal motor neurologic deficits. Const: Vital Signs, click to edit/add: Vital Signs - 24 hr 01/19/24 15:53 01/19/24 19:00 01/19/24 23:00 Temperature 97.9 F 98.8 F 99.1 F Pulse Rate [Bilate ral Dorsalis Pedis ] 96 Pulse Rate [Pulse Oximeter] 88 83 Respiratory Rate 20 15 18 Blood Pressure [Le ft Arm] 182/102 H 143/88 H 154/77 H Blood Pressure [Ri ght Arm] Pulse Oximetry 100 100 100 Oxygen Delivery Me thod Room Air Room Air Room Air 01/20/24 02:07 01/20/24 07:55 01/20/24 08:15 Temperature 99.0 F 99.0 F Pulse Rate [Bilate ral Dorsalis Pedis ] Pulse Rate [Pulse Oximeter] 72 72 Respiratory Rate 18 18 18 Blood Pressure [Le ft Arm] Blood Pressure [Ri ght Arm] 136/64 146/77 H Pulse Oximetry 98 100 Oxygen Delivery Me thod Room Air Room Air Labs Labs: Laboratory Results - last 24 hr 01/17/24 01/20/24 16:45 06:45 WBC 4.10 L RBC 3.53 L Hgb 11.2 L Hct 32.2 L MCV 91 MCH 32 MCHC 35 RDW Coeff of [place] 14.0 Plt Count 156 Neut % (Auto) 58.3 Lymph % (Auto) 31.7 [place] % (Auto) 7.8 Eos % (Auto) 1.7 Baso % (Auto) 0.0 Neut # (Auto) 2.40 Lymph # (Auto) 1.30 [place] # (Auto) 0.30 Eos # (Auto) 0.10 Baso # (Auto) 0.00 Abs Immat Gran (auto) 0.00 Imm/Tot Granulo (auto) 0.5 Sodium 137 Potassium 4.0 Chloride 109 Carbon Dioxide 23 Anion Gap 5 L BUN 31 H Creatinine 1.9 H Estimated Creat Clear 35.66 Estimated GFR 37 Glucose 177 H Calcium 8.9 Tacrolimus (LC/MS/MS) 36.1
[2024-01-20] MEDS: MENTHOL 57 GM GEL 1 APPLIC TOPICAL ×2 (16:14→21:34)
[2024-01-20] MEDS: ACETAMINOPHEN 325 MG TABLET 650 MG PO (16:15)
--- NOTE | 2024-01-20 19:07 | PC.NURSE ---
Pt alert and oriented to self and place, though had difficulty remembering date of . Pt was Pt on a regular diet and tolerates well. Pt up to chair via 1a walker gait belt, pt did also shower today via 1a, tolerated well. Pt is now saline locked per MD. Pt did have pain bilaterally in feet, rated 10/10. PRN oxy and Tylenol were administered, along with menthol cream applied to feet bilaterally. Some improvement of pain noted.
[2024-01-20] MEDS: ATORVASTATIN 10 MG TABLET 20 MG PO (21:33)
[2024-01-20] MEDS: FAMOTIDINE 20 MG TABLET 40 MG PO (21:34)
[2024-01-20] MEDS: SODIUM CHLORIDE 0.9 % (FLUSH) 10 ML SYRINGE 5 ML IVF (21:35)
[2024-01-20] MEDS: TAMSULOSIN HCL 0.4 MG CAPSULE PO (21:37)
--- NOTE | 2024-01-20 22:28 | PC.NURSE ---
End of shift [id number]: Pt AxOx4. Calm and cooperative. Pt spent time during shift watching tv and resting before bed. Pt denies H/N/V/CP/SOB. Pt rated pain of the bilateral feet 9/10 during shift. Pt stated nothing has worked. Firebrick Layer Helper discussed applying heat, cold, PRN pain medication, and engineering writer refused all. Pt did agree to Menthol during bedtime medication administration. Dexter patent and draining. Pt appears resting with call light in reach.
[2024-01-21 02:30] VITALS: BP 146/84; PULSE 91; RESP 16; TEMP 37.2; O2SAT 99
[2024-01-21] MEDS: INSULIN ASPART 100 UNIT/ML SUBCUT ×3 (02:49→21:11)
[2024-01-21 06:26] LABS: Basophils Percent Auto 0.3 % (0.0-3.0); Hematocrit 30.1 % (37.0-53.0); Hemoglobin* 10.4 gm/dL (13.5-17.5); Immature Granulocytes Pct Auto 0.6 %; Lymphocytes Percent Auto 31.8 % (20-44); Mean Corpuscular HGB Conc 35 gm/dL (32-36); Mean Corpuscular Hemoglobin 31 pg (26-34); Mean Corpuscular Volume 91 fL (80-100); Monocytes Percent Auto 9.9 % (0.0-11.0); Neutrophils Percent Auto 55.4 % (42.0-72.0); Platelet Count* 154 K/uL (140-440); RDW Coefficient of Variation % 14.1 % (11.5-15.5); Red Blood Count 3.32 m/uL (4.30-5.90); White Blood Count* 3.55 K/uL (4.50-11.00)
--- NOTE | 2024-01-21 06:31 | PC.NURSE ---
END OF SHIFT NOTE: A&O. DENIES CP, SOB, N/V. AMBULATES WITH A1/WALKER. VSS ON RA; AFEBRILE. ACCU CHECK 236, 249; SS GIVEN PER PROTOCOL. CARMELA PATENT. BED ALARM ON AND CALL LIGHT WITHIN PT?S REACH. SLEPT WELL DURING HS.
[2024-01-21 06:39] LABS: Chloride* 109 mmol/L (96-114); Potassium* 4.7 mmol/L (3.6-5.1); Sodium* 138 mmol/L (135-149)
[2024-01-21 06:42] LABS: Anion Gap 6 mEq/L (7-15); Blood Urea Nitrogen* 34 mg/dL (7-30); Carbon Dioxide* 23 mmol/L (20-32); Creatinine* 1.9 mg/dL (0.5-1.5); Est. Creatinine Clearance* 35.66; Estimated Glomerular Filt Rate 37 ml/min; Glucose* 124 mg/dL (60-115)
[2024-01-21 06:43] LABS: Calcium* 8.8 mg/dL (8.4-10.6)
[2024-01-21 07:14] LABS: Slide Review Reflex No
[2024-01-21 07:53] VITALS: BP 138/79; PULSE 95; PULSE 97; RESP 12; TEMP 36.1; O2SAT 98
[2024-01-21] MEDS: OMEPRAZOLE 20 MG CAPSULE DR PO ×2 (08:53→21:06)
[2024-01-21] MEDS: GABAPENTIN 300 MG CAPSULE PO ×2 (08:53→21:06)
[2024-01-21] MEDS: glipiZIDE 5 MG TABLET PO (08:54)
[2024-01-21] MEDS: FUROSEMIDE 20 MG TABLET PO (08:54)
[2024-01-21] MEDS: CITALOPRAM HYDROBROMIDE 20 MG TABLET PO (08:54)
[2024-01-21] MEDS: ASPIRIN 81 MG TABLET EC PO (08:54)
[2024-01-21] MEDS: TACROLIMUS 0.5 MG CAPSULE 3 MG PO ×2 (08:57→21:33)
[2024-01-21] MEDS: MENTHOL 57 GM GEL 1 APPLIC TOPICAL ×3 (08:58→21:06)
[2024-01-21] MEDS: SODIUM CHLORIDE 0.9 % (FLUSH) 10 ML SYRINGE 5 ML IVF ×2 (08:58→21:07)
[2024-01-21] MEDS: azaTHIOprine 50 MG TABLET 150 MG PO (09:01)
[2024-01-21 09:11] LABS: Uric Acid* 9.8 mg/dL (2.2-8.4)
[2024-01-21 09:14] LABS: C Reactive Protein* 2.1 mg/dL (0.5-1.0)
[2024-01-21 10:52] VITALS: BP 138/97; PULSE 99; RESP 14; TEMP 36.2; O2SAT 98
--- NOTE | 2024-01-21 10:52 | PM.IMPN1 ---
Progress Note: A&P Assessment and plan (1) Acute renal failure: Problem details: Creatinine of 4.4, about 3 times baseline of 1.4-1.6. Associated metabolic acidosis. Most likely due to acute pre renal azotemia from diarrhea and poor oral intake. With kidney transplant history also concerned about transplanted kidney. Attempted to transfer to [facility] transplant service but they have no ability to take him tonight-no beds. 01/17: General Office Associate 3.3, BUN 60, downtrending. Potassium 5.3, 4.9 on admission Continue IVF One time IV lasix dose given. Holding home dose 20mg daily. Recheck BMP at 1400pm Patient verbalizes he does not want to be transferred to the [facility] at this point, pending continued improvement. Understands he would need to be if worsening or no improvement 01/18: Creatinine 2.4, BUN 44, potassium 4.4. Restart home Lasix, monitoring renal function. Continue gentle IVF, trending labs, monitoring for fluid overload 01/19: Cr 1.9, BUN 31, K 4.0. Oral intake normalizing. Saline lock IV. Monitor. 01/20: Creatinine 1.9. Status: Acute (2) Acute dehydration: Problem details: Suspect C diff causing diarrhea and poor oral intake as a cause of his dehydration - RULED OUT Continue gentle fluid resuscitation with a caution regarding his known heart failure 01/19: Normalizing. Saline lock IV. Status: Acute (3) Diarrhea: Problem details: C diff negative. Stool culture pending. Only 1 BM during hospital course thus far 01/19: No further diarrhea in hospital at this time. Status: Acute (4) Recurrent Clostridioides difficile diarrhea: Problem details: Patient is having his 5th C diff episode of C diff colitis since October 2022. He is unable to recall any of his previous hospitalizations or treatments or evaluation for this. Unclear if he is getting appropriate follow-up evaluation. Previously referred to [facility] but probably did not make an appointment RULED OUT. Discontinue Vancomycin (patient reported as noncompliant with home dosing following previous discharge) Status: Ruled-out (5) Adult failure to thrive: Problem details: - recurrent hospitalizations with AMS, poor oral intake, probable noncompliance, profound weakness and concern about ability to care for himself - therapies followed during stay - patient has repeatedly declined SNF or any higher level of care or even home health nursing, brother is aware of this and checks on patient regularly PT/OT to assess - 01/20: Patient willing to consider transitional care services if warranted. Status: Acute (6) Type 2 diabetes mellitus, without long-term current use of insulin: Problem details: Restart glipizide. Continue Insulin sliding scale. Glucose > 200 past 24 hours, increasing scale 01/19: Glucose max 322 today. Oral intake is improved. Status: Acute (7) Noncompliance with medications: Problem details: - unclear home compliance, particularly with oral Vancomycin - 01/19: He acknowledges his memory has recently been problematic... Status: Suspected (8) Physical debility: Problem details: - With each hospitalization he is profoundly weak and unable to care for himself. Does improve with IV fluids and treatment of C diff. Has stayed out of the hospital for the last 4 months - Increase activities as tolerated Status: Chronic (9) Acute alteration in mental status: Problem details: Presents with his typical sluggish mental status, impaired memory, slow speech that he has on hospital admissions in the past. Metabolic encephalopathy most likely explanation. 01/17 Confusion clearing, oriented, still slow 01/18 reported worsening overnight, improved again this morning, morning labs without new concerns, monitoring hospital delirium. No recent head CT, last was August 2023, could consider if necessary 01/19: MOCA 1530 today. 1 year ago MOCA 20. We have previously recommended that he have additional outpatient comprehensive assessment of his cognition, which he agree to do, but has never followed up to this day. He continues to drive his own car at this time. We have previously advised him to not drive until he has adequate evaluation for this. We once again advise him to NOT drive until he has adequate assessment. 01/20: Patient did not recall speaking with me yesterday about not driving. I reminded him of this. He is willing to consider transitional care services when we deem it safe for him to be discharged from the hospital. Status: Resolved (10) Hyperkalemia: Problem details: Potassium 5.3, 4.9 on admission. EKG on admission reviewed. IVF, single dose IV lasix. Improved to 4.4 01/19: K 4 today. Saline lock IV. Monitor. Status: Resolved (11) Liver transplant recipient: Problem details: Continue tacrolimus, level sent out. Total bili 1.4 Followed by Transplant Clinic at the [facility] Status: Acute (12) Kidney transplant recipient: Problem details: Continue tacrolimus, level sent out. ROSANA as above Followed by Transplant Clinic at the [facility] Status: Acute (13) HTN (hypertension): Problem details: No recent medication management noted in EMR. Lasix recently added in setting of heart failure. History of medication noncompliance. Continue to monitor, considering addition of antihypertensive if necessary and willing to take Status: Acute Plan 1. Reviewed impression with patient 2. Reviewed plans with patient 3. Answered patient's questions 4. Patient agreeable with above stated plans and recommendations Time Spent With Patient Total time spent: 35 minutes Subjective Date Seen: 01/21/24 Interval history: Hospital day 5, admitted on 01/17/2024. Patient is more awake and interactive today than yesterday. He continues to perseverate on his decline cognition. Tells me a story today of how 2 or 3 weeks ago he was driving his car with the intent of trans acting some business at the [employer]. Evidently he could not find his bank and return home. Tells me how he is concerned that his thinking isn't as sharp as it has been in the past. Interestingly he does not remember talking with me yesterday about his driving. I informed him that I do not recommend that he drive his car any longer until such time as he completes testing and the testing indicates he can safely drive his car. Denies pain or discomfort. Denies chest, neck, head, back, shoulder heaviness, pressure, tightness, or pain. Denies dyspnea at rest or dyspnea with exertion. Denies syncope or near-syncope. Denies nausea or vomiting. Indicates the diarrhea that he had is seemingly resolved. He denies fever, rigors, diaphoresis. Tolerating increased activity including walking to and from the bathroom with walker and standby assist. Exam Narrative: Exam Narrative: I examined him in his hospital room. Appears comfortable and in no acute distress. Eating his breakfast without difficulty. Sitting in chair without assistance. Alert and oriented x3 today, essentially unchanged from yesterday. Lungs are clear to auscultation. Heart tones with regular rhythm. Abdomen with active bowel sounds, soft, nontender. Transfers from supine to sitting and sitting to standing with standby assist only. Ambulates with standby assist with use of walker. Const: Vital Signs, click to edit/add: Vital Signs - 24 hr 01/20/24 12:23 01/20/24 15:30 01/20/24 16:25 Temperature 97.9 F 97.7 F Pulse Rate [Bilate ral Dorsalis Pedis ] Pulse Rate [Pulse Oximeter] 97 99 99 Respiratory Rate 18 18 18 Blood Pressure [Le ft Arm] Blood Pressure [Ri ght Arm] 130/77 123/73 Pulse Oximetry 100 98 Oxygen Delivery Me thod Room Air Room Air 01/20/24 19:00 01/21/24 02:30 01/21/24 07:53 Temperature 98.2 F 98.9 F Pulse Rate [Bilate ral Dorsalis Pedis ] Pulse Rate [Pulse Oximeter] 94 91 97 Respiratory Rate 16 16 12 Blood Pressure [Le ft Arm] 146/84 H Blood Pressure [Ri ght Arm] 113/72 Pulse Oximetry 97 99 Oxygen Delivery Me thod Room Air 01/21/24 07:53 Temperature 97 F L Pulse Rate [Bilate ral Dorsalis Pedis ] 95 Pulse Rate [Pulse Oximeter] Respiratory Rate 12 Blood Pressure [Le ft Arm] Blood Pressure [Ri ght Arm] 138/79 Pulse Oximetry 98 Oxygen Delivery Me thod Room Air Labs Labs: Laboratory Results - last 24 hr 01/21/24 01/21/24 05:55 08:29 WBC 3.55 L RBC 3.32 L Hgb 10.4 L Hct 30.1 L MCV 91 MCH 31 MCHC 35 RDW Coeff of [place] 14.1 Plt Count 154 Neut % (Auto) 55.4 Lymph % (Auto) 31.8 [place] % (Auto) 9.9 Eos % (Auto) 2.0 Baso % (Auto) 0.3 Neut # (Auto) 2.00 Lymph # (Auto) 1.10 [place] # (Auto) 0.40 Eos # (Auto) 0.10 Baso # (Auto) 0.00 Abs Immat Gran (auto) 0.00 Imm/Tot Granulo (auto) 0.6 Sodium 138 Potassium 4.7 Chloride 109 Carbon Dioxide 23 Anion Gap 6 L BUN 34 H Creatinine 1.9 H Estimated Creat Clear 35.66 Estimated GFR 37 Glucose 124 H Uric Acid 9.8 H Calcium 8.8 C-Reactive Protein 2.1 H Lab Acknowledgement Test Added
[2024-01-21 15:00] VITALS: BP 147/68; PULSE 88; PULSE 98; RESP 14; RESP 16; TEMP 37.1; O2SAT 98
[2024-01-21] MEDS: ACETAMINOPHEN 325 MG TABLET 650 MG PO (15:49)
[2024-01-21] MEDS: OXYCODONE 5 MG TABLET PO (15:51)
--- NOTE | 2024-01-21 18:31 | PC.NURSE ---
Nursing Care Hours: [id number] Pt alert and oriented and calm. Cooperative with most cares. After morning therapies, pt laid in bed and refused lunch, BS check and BR. Renteria removed. Pt stated because bed alarm was on, he couldn't sit up to use the urinal so he wet his briefs instead. Assisted to get up to bathroom. Brief and gown changed. Up in chair for evening. BS taken at 1600 was 151. Right before dinner it was 159, treated with insulin. Oxycodone and Tylenol given for L foot pain, reported as 10/10 with ambulation. Menthol ointment applied and effective as well. TEDs on. Med formed BM this shift. VSS.
[2024-01-21 19:00] VITALS: BP 149/83; PULSE 97; RESP 12; TEMP 37; O2SAT 99
[2024-01-21] MEDS: ATORVASTATIN 10 MG TABLET 20 MG PO (21:06)
[2024-01-21] MEDS: FAMOTIDINE 20 MG TABLET 40 MG PO (21:06)
[2024-01-21] MEDS: TAMSULOSIN HCL 0.4 MG CAPSULE PO (21:06)
--- NOTE | 2024-01-21 22:08 | PC.NURSE ---
End of shift [id number]: Pt AxOx4. Calm and cooperative. Pt up in chair upon shift. Pt ambulated well from chair to bed. Pt denies H/N/V/CP/SOB. Pt denied pain after ambulation to bed. Pt using urinal to void. Pt appears resting watching television with call light in reach.
[2024-01-21 23:00] VITALS: PULSE 80; RESP 18
[2024-01-22] VITALS (9 sets, daily range): BP systolic 135–185; BP diastolic 64–93; PULSE 78–120; RESP 16–22; TEMP 37.1–38.8; O2SAT 98–100
--- NOTE | 2024-01-22 06:27 | PC.NURSE ---
END OF SHIFT NOTE: A&O. DENIES CP, SOB, N/V. AMBULATES WITH A1/W. VSS ON RA; AFEBRILE. USES URINAL TO VOID. PT AND ROOM WITH PUNGENT URINE SMELL. ACCU CHECK 122 WITH NO SS GIVEN PER PROTOCOL. SHIFT UNEVENTFUL. CALL LIGHT WITHIN PT?S REACH.?
[2024-01-22 06:36] LABS: Basophils Absolute Auto 0.01 K/uL (0.00-0.30); Basophils Percent Auto 0.2 % (0.0-3.0); Eosinophils Absolute Auto 0.12 K/uL (0.00-0.50); Eosinophils Percent Auto 1.9 % (0.0-7.0); Hematocrit 31.3 % (37.0-53.0); Hemoglobin* 11.1 gm/dL (13.5-17.5); Immature Granulocytes Abs Auto 0.02 K/uL (0.00-0.30); Immature Granulocytes Pct Auto 0.3 %; Lymphocytes Percent Auto 13.8 % (20-44); Mean Corpuscular HGB Conc 36 gm/dL (32-36); Mean Corpuscular Hemoglobin 33 pg (26-34); Mean Corpuscular Volume 92 fL (80-100); Monocytes Percent Auto 5.6 % (0.0-11.0); Neutrophils Percent Auto 78.2 % (42.0-72.0); Platelet Count* 137 K/uL (140-440); RDW Coefficient of Variation % 13.9 % (11.5-15.5); Red Blood Count 3.42 m/uL (4.30-5.90)
[2024-01-22 06:38] LABS: Slide Review Reflex No
[2024-01-22 07:04] LABS: Chloride* 105 mmol/L (96-114); Potassium* 4.9 mmol/L (3.6-5.1); Sodium* 137 mmol/L (135-149)
[2024-01-22 07:07] LABS: Anion Gap 9 mEq/L (7-15); Blood Urea Nitrogen* 32 mg/dL (7-30); Carbon Dioxide* 23 mmol/L (20-32); Creatinine* 1.8 mg/dL (0.5-1.5); Est. Creatinine Clearance* 37.64; Estimated Glomerular Filt Rate 40 ml/min
[2024-01-22 07:08] LABS: Glucose* 142 mg/dL (60-115)
[2024-01-22] MEDS: GABAPENTIN 300 MG CAPSULE PO ×2 (08:43→21:06)
[2024-01-22] MEDS: OXYCODONE 5 MG TABLET PO (08:43)
[2024-01-22] MEDS: SODIUM CHLORIDE 0.9 % (FLUSH) 10 ML SYRINGE 5 ML IVF (08:43)
[2024-01-22] MEDS: glipiZIDE 5 MG TABLET PO (08:44)
[2024-01-22] MEDS: azaTHIOprine 50 MG TABLET 150 MG PO (08:44)
[2024-01-22] MEDS: CITALOPRAM HYDROBROMIDE 20 MG TABLET PO (08:44)
[2024-01-22] MEDS: FUROSEMIDE 20 MG TABLET PO (08:44)
[2024-01-22] MEDS: ACETAMINOPHEN 325 MG TABLET 650 MG PO ×2 (08:44→16:21)
[2024-01-22] MEDS: OMEPRAZOLE 20 MG CAPSULE DR PO ×2 (08:44→21:06)
[2024-01-22] MEDS: ASPIRIN 81 MG TABLET EC PO (08:44)
[2024-01-22] MEDS: MENTHOL 57 GM GEL 1 APPLIC TOPICAL ×3 (08:50→21:06)
[2024-01-22] MEDS: TACROLIMUS 0.5 MG CAPSULE 3 MG PO ×2 (10:05→21:51)
--- NOTE | 2024-01-22 10:49 | CRLHL7_ITS ---
For Patients: As a result of the Century Cures Act, medical imaging exams and procedure reports are released immediately into your electronic medical record. You may view this report before your referring provider. If you have questions, please contact your health care provider. INDICATION: Fever TECHNIQUE: Two view chest. FINDINGS: The lungs are clear. The heart, mediastinum and pulmonary vessels are of normal size. There is no evidence of pleural disease. AVR IMPRESSION: Negative chest. Dictated by Aleah Rodriguez MD @ 01/22/2024 1:01:09 PM (Electronically Signed)
--- NOTE | 2024-01-22 10:51 | P.IMPN_ITS ---
Progress Note: A&P Assessment and plan (1) Acute renal failure: Problem details: Creatinine of 4.4, about 3 times baseline of 1.4-1.6. Associated metabolic acidosis. Most likely due to acute pre renal azotemia from diarrhea and poor oral intake. With kidney transplant history also concerned about transplanted kidney. Attempted to transfer to [facility] transplant service but they have no ability to take him tonight-no beds. 01/17: Eap Specialist 3.3, BUN 60, downtrending. Potassium 5.3, 4.9 on admission Continue IVF One time IV lasix dose given. Holding home dose 20mg daily. Recheck BMP at 1400pm Patient verbalizes he does not want to be transferred to the [facility] at this point, pending continued improvement. Understands he would need to be if worsening or no improvement 01/18: Creatinine 2.4, BUN 44, potassium 4.4. Restart home Lasix, monitoring renal function. Continue gentle IVF, trending labs, monitoring for fluid overload 01/19: Cr 1.9, BUN 31, K 4.0. Oral intake normalizing. Saline lock IV. Monitor. 01/20: Creatinine 1.9. 01/22/2024: Creatinine 1.8. BUN down to 32. Status: Acute (2) Acute dehydration: Problem details: Suspect C diff causing diarrhea and poor oral intake as a cause of his dehydration - RULED OUT Continue gentle fluid resuscitation with a caution regarding his known heart failure 01/19: Normalizing. Saline lock IV. Status: Acute (3) Diarrhea: Problem details: C diff negative on presentation. Stool culture pending. 01/21: No further diarrhea in hospital at this time. Status: Acute (4) Recurrent Clostridioides difficile diarrhea: Problem details: Patient is having his 5th C diff episode of C diff colitis since October 2022. He is unable to recall any of his previous hospitalizations or treatments or evaluation for this. Unclear if he is getting appropriate follow-up evaluation. Previously referred to [facility] but probably did not make an appointment RULED OUT. Discontinue Vancomycin (patient reported as noncompliant with home dosing following previous discharge) Status: Ruled-out (5) Adult failure to thrive: Problem details: - recurrent hospitalizations with AMS, poor oral intake, probable noncompliance, profound weakness and concern about ability to care for himself - therapies followed during stay - patient has repeatedly declined SNF or any higher level of care or even home health nursing, brother is aware of this and checks on patient regularly PT/OT to assess - 01/20: Patient willing to consider transitional care services if warranted. Status: Acute (6) Type 2 diabetes mellitus, without long-term current use of insulin: Problem details: Restart glipizide. Continue Insulin sliding scale. Glucose > 200 past 24 hours, increasing scale 01/21: Glucose ranging from 115-150 Status: Acute (7) Noncompliance with medications: Problem details: - unclear home compliance, particularly with oral Vancomycin - 01/19: He acknowledges his memory has recently been problematic... Status: Suspected (8) Physical debility: Problem details: - With each hospitalization he is profoundly weak and unable to care for himself. Does improve with IV fluids and treatment of C diff. Has stayed out of the hospital for the last 4 months - Increase activities as tolerated Status: Chronic (9) Acute alteration in mental status: Problem details: Presents with his typical sluggish mental status, impaired memory, slow speech that he has on hospital admissions in the past. Metabolic encephalopathy most likely explanation. 01/17 Confusion clearing, oriented, still slow 01/18 reported worsening overnight, improved again this morning, morning labs without new concerns, monitoring hospital delirium. No recent head CT, last was August 2023, could consider if necessary 01/19: MOCA 15 today. 1 year ago MOCA . We have previously recommended that he have additional outpatient comprehensive assessment of his cognition, which he agree to do, but has never followed up to this day. He continues to drive his own car at this time. We have previously advised him to not drive until he has adequate evaluation for this. We once again advise him to NOT drive until he has adequate assessment. 01/20: Patient did not recall speaking with me yesterday about not driving. I reminded him of this. He is willing to consider transitional care services when we deem it safe for him to be discharged from the hospital. 01/21: This is a major concern about him returning home at this time safely given the paucity of support in place Status: Resolved (10) Hyperkalemia: Problem details: Potassium 5.3, 4.9 on admission. EKG on admission reviewed. IVF, single dose IV lasix. Improved to 4.4 01/19: K 4 today. Saline lock IV. Monitor. Status: Resolved (11) Liver transplant recipient: Problem details: Continue tacrolimus, level sent out. Total bili 1.4 Followed by Transplant Clinic at the [facility] Tacrolimus level elevated at 36 on 01/17/2024. Will recheck level now. Status: Acute (12) Kidney transplant recipient: Problem details: Continue tacrolimus, level sent out. ROSANA as above Followed by Transplant Clinic at the [facility] Tacrolimus level elevated at 36 on 01/17/2024. Will recheck level now. Status: Acute (13) HTN (hypertension): Problem details: No recent medication management noted in EMR. Lasix recently added in setting of heart failure. History of medication noncompliance. Continue to monitor, considering addition of antihypertensive if necessary and willing to take Status: Acute (14) Elevated temperature: Problem details: 01/22/2024: TM 100.5. No obvious fever. Differential diagnosis include infection, such as pneumonia, pulmonary atelectasis, UTI, cellulitis, diverticulitis, C diff, COVID. Consider transplant rejection. Recent urine culture negative, no obvious cellulitis, CT scan of abdomen and pelvis demonstrated no obvious active diverticulitis, not having diarrhea since admission to hospital and most recent C diff on 01/17/2024 was negative. On presentation COVID and influenza testing as well as RSV was negative. - will check a chest x-ray as well as a procalcitonin level. Will recheck for COVID as well. Consider additional testing if warranted. Continue to monitor for now. Status: Acute Plan 1. Review impression with patient 2. Review plan recommendations with patient 3. Answered patient's questions to satisfaction 4. Patient agreeable with above stated plans and recommendations Time Spent With Patient Total time spent: 40 minutes Subjective Date Seen: 01/22/24 Interval history: Hospital day 6, admitted on 01/17/2024. He tells me that towards the end the day yesterday he felt more tired and sleepy. Still feels weak. Nevertheless able to ambulate with standby assist from bed to bedside chair and to bathroom and back use of roller walker. Denies pain or discomfort. Denies chest, neck, head, back, shoulder heaviness, pressure, tightness, or pain. Denies dyspnea at rest or dyspnea with exertion. Denies syncope or near-syncope. Denies nausea or vomiting. Diarrhea seemingly resolved. He denies awareness or knowledge of fever, rigors, diaphoresis. Tolerating increased activity including walking to and from the bathroom with walker and standby assist, although aware of sense of weakness. Has been reluctant to accept transitional care services. He reiterates desire to return home when possible. I assured him our long-term goal is to have him return home again when it is safe to do so. I again explained to him that he may require more time beyond his hospital stay to work on gaining his strength before he can safely return home. Today he is more open to this possibility. Exam Narrative: Exam Narrative: I examine him in his hospital room. Appears comfortable and in no acute distress. Sitting in chair at bedside eating his breakfast and seemingly enjoying it. Alert and oriented to self and place, to time, and seemingly also to situation. Lungs remain clear to auscultation. No CVA tenderness to thumping. Heart tones with regular rhythm. Abdomen with active bowel sounds, soft, nontender. No rebound or guarding. Skin without petechiae, rashes, wounds. Transfers and ambulates with walker with standby assist only. Broad-based gait. weight 99.3 kg today, was 97 kg on admission in dehydrated state. Const: Vital Signs, click to edit/add: Vital Signs - 24 hr 01/21/24 10:52 01/21/24 15:00 01/21/24 15:00 Temperature 97.2 F L 98.7 F Pulse Rate [Bilate ral Dorsalis Pedis ] 98 Pulse Rate [Pulse Oximeter] 99 98 88 Respiratory Rate 14 14 16 Blood Pressure [Ri ght Arm] 138/97 H 147/68 H Pulse Oximetry 98 [facility] 01/21/24 19:00 01/21/24 23:00 01/22/24 00:10 Temperature 98.6 F 98.8 F Pulse Rate [Bilate ral Dorsalis Pedis ] Pulse Rate [Pulse Oximeter] 97 80 80 Respiratory Rate 12 18 18 Blood Pressure [Ri ght Arm] 149/83 H 154/93 H Pulse Oximetry 99 99 Oxygen Delivery Co thod Room Air Room Air 01/22/24 02:20 01/22/24 07:00 01/22/24 07:00 Temperature 98.8 F 100.5 F H Pulse Rate [Bilate ral Dorsalis Pedis ] Pulse Rate [Pulse Oximeter] 78 106 H 106 H Respiratory Rate 16 16 16 Blood Pressure [Ri ght Arm] 163/82 H 169/89 H Pulse Oximetry 99 98 Oxygen Delivery Me thod Room Air Room Air Labs Labs: Laboratory Results - last 24 hr 01/22/24 06:27 WBC 6.40 RBC 3.42 L Hgb 11.1 L Hct 31.3 L MCV 92 MCH 33 MCHC 36 RDW Coeff of Warren 13.9 Plt Count 137 L Neut % (Auto) 78.2 H Lymph % (Auto) 13.8 L Churchill % (Auto) 5.6 Eos % (Auto) 1.9 Baso % (Auto) 0.2 Neut # (Auto) 5.00 Lymph # (Auto) 0.90 Churchill # (Auto) 0.40 Eos # (Auto) 0.12 Baso # (Auto) 0.01 Abs Immat Gran (auto) 0.02 Imm/Tot Granulo (auto) 0.3 Sodium 137 Potassium 4.9 Chloride 105 Carbon Dioxide 23 Anion Gap 9 BUN 32 H Creatinine 1.8 H Estimated Creat Clear 37.64 Estimated GFR 40 Glucose 142 H Calcium 9.0
[2024-01-22 11:35] LABS: Albumin* 3.9 g/dL (3.3-5.0)
[2024-01-22 11:38] LABS: Aspartate Amino Transferase* 16 U/L (12-35); Bilirubin Direct* 0.4 mg/dL (0.0-0.5); Bilirubin Total* 1.2 mg/dL (0.1-1.5); Total Protein* 6.9 g/dL (6.0-8.3)
[2024-01-22 11:39] LABS: Alanine Aminotransferase* 7 U/L (4-50); Alkaline Phosphatase* 64 U/L (40-150); Lipase* 38 U/L (23-300)
[2024-01-22 11:56] LABS: Procalcitonin* 0.11 ng/mL (<0.50)
[2024-01-22 12:19] LABS: C.Difficile Negative (Negative); CDIFFEPI 027 PRESUMPTIVE NEGATIVE (Negative)
[2024-01-22] MEDS: INSULIN ASPART 100 UNIT/ML SUBCUT ×3 (12:53→21:24)
[2024-01-22 13:34] LABS: SARS PCR* Negative SARS-CoV-2 (Negative)
--- NOTE | 2024-01-22 17:07 | CRLHL7_ITS ---
For Patients: As a result of the 21st Century Cures Act, medical imaging exams and procedure reports are released immediately into your electronic medical record. You may view this report before your referring provider. If you have questions, please contact your health care provider. INDICATION: Fever, abdominal pain, diarrhea, AMS, immunocompromised. (Sic) According to the indication for the prior recent exam dated 01/17/2024 the patient is status post liver transplant and renal transplant. COMPARISON: 01/17/2024 and 03/18/2023. TECHNIQUE: CT of the abdomen and pelvis without intravenous contrast. Please note that all CT scans at this facility use dose modulation, iterative reconstruction, and/or weight-based dosing when appropriate to reduce radiation dose to as low as reasonably achievable. FINDINGS: The study is performed without intravenous contrast. This limits the sensitivity of the exam for the detection bowel pathology, focal lesions of the abdominopelvic viscera and vascular pathology including significant vascular stenosis, occlusion and dissection. ABDOMEN Liver: Stable appearance of the transplanted liver. Gallbladder: Cholecystectomy. Normal common duct caliber. No pericholecystic inflammatory changes. Pancreas: Fatty atrophic change of the pancreatic head and uncinate process. No focal lesion. Normal duct caliber. No peripancreatic inflammatory changes. Spleen: Enlarged spleen measuring 13.7 cm in craniocaudad dimension. No focal splenic lesion. Adrenal Glands: Symmetrical adrenal glands. No focal lesion of significance. Kidneys: New air within the right iliac fossa renal allograft intrarenal collecting system consistent with emphysematous pyelonephritis. 3.4 cm simple exophytic left upper pole renal cortical cyst arising from the kiana left kidney. Mild dilatation of the kiana bilateral upper urinary tracts, new in the interval since the prior study of 01/17/2024. Gastrointestinal tract: Extensive colonic diverticulosis without associated inflammatory changes. Normal appendix. Vascular: Normal outer wall to outer wall abdominal aortic caliber. Patency and luminal caliber of the abdominopelvic arterial and venous vasculature cannot be assessed on this noncontrast study. Additional findings: No incidental adenopathy. No significant ascites, free fluid or pneumoperitoneum. Atrophy of the right psoas muscle. PELVIS The bladder is collapsed, otherwise not well evaluated. Prostatomegaly. No abnormal free fluid. No incidental adenopathy. SKELETON AND BODY WALL Large unchanged fat containing indirect left inguinal hernia. Small fat containing umbilical hernia, also unchanged. Chronic fatty atrophic change of the right rectus abdominis muscle. Bilateral hip arthroplasties. LOWER THORAX TAVR. Dense left anterior descending atherosclerotic coronary artery calcifications. 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 Urgent subspecialty consultation is recommended further management as the patient is at risk for sepsis. Discussed directly with the ordering provider Dr. Salcedo at 6:52 p.m. [employer] on 01/22/2024. Please note that all CT scans at this facility use dose modulation, iterative reconstruction, and/or weight-based dosing when appropriate to reduce radiation dose to as low as reasonably achievable. Dictated by Randal Ross MD @ 01/22/2024 6:54:53 PM (Electronically Signed)
[2024-01-22 17:14] LABS: Lactate* 0.7 mmol/L (0.5-1.9)
[2024-01-22 17:34] LABS: Ammonia* < 9.0 umol/L (13.1-30.0)
[2024-01-22] MEDS: VANCOMYCIN 125 MG CAPSULE PO ×2 (17:55→21:06)
[2024-01-22] MEDS: cefTRIAXone 2 GM in 0.9 % SODIUM CHLORIDE Mini-bag 100 ML IVPB (17:57)
[2024-01-22] MEDS: 0.9 % SODIUM CHLORIDE 500 ML 500 ML 250 ML IV (18:08)
[2024-01-22 18:23] LABS: Appearance Urine Cloudy (Clear); Bilirubin Urine Negative (Negative); Blood Urine 1+ (Negative); Color Urine Yellow (Yellow); Glucose Urine 1+ (Negative); Ketones Urine Negative (Negative); Leukocyte Esterase Urine 1+ (Negative); Nitrite Urine Positive (Negative); Protein Urine 1+ (Negative); Specific Gravity Urine 1.015 (1.000-1.030); Urobilinogen Urine 0.2 (0.2-1.0); pH Urine 5.5 (5.0-8.5)
[2024-01-22 18:30] LABS: RBC Urine 0-2 (0-2); WBC Clumps Urine Few; WBC Urine 25-50 (0-5)
[2024-01-22 18:31] LABS: Bacteria Urine Moderate
[2024-01-22] MEDS: metroNIDAZOLE 500 MG/100 ML PIGGYBACK 100 MG IVPB (18:44)
--- NOTE | 2024-01-22 19:32 | PC.NURSE ---
End of shift-- Pt oriented to person and place this morning, but stated that it was 2003. This afternoon, pt was responsive but only minimally verbal and MD was notified. VSS, though tachycardic with HR from 100-120 today. Temp elevated to 101.6F this evening. SPO2 maintained >90% on RA. He c/o pain in his feet this morning which he rated 10/10 but appears well managed with Oxycodone, Tylenol and Bengay. LS CTA. ECG completed per MD order showing sinus tachycardia. LS CTA. He denied nausea and ate a regular diet without difficulty. Pt had 2x large loose BMs today. Cdiff sample was sent and negative. Incontinent of urine this afternoon. UA was sent. Pt had CT this evening and tolerated it well. See EMR for details. He was up to BR this morning with assist of 1 and walker and tolerated it well. Report to BENTLEY Vidal.
[2024-01-22] MEDS: FAMOTIDINE 20 MG TABLET 40 MG PO (21:05)
[2024-01-22] MEDS: ATORVASTATIN 10 MG TABLET 20 MG PO (21:05)
[2024-01-22] MEDS: TAMSULOSIN HCL 0.4 MG CAPSULE PO (21:06)
[2024-01-22] MEDS: PIPERACILLIN/TAZOBACTAM 3.375 GM in 0.9 % SODIUM CHLORIDE Mini-bag 100 ML IVPB (22:37)
--- NOTE | 2024-01-22 23:48 | PC.NURSE ---
End of shift [id number]- Pt AxOx4. HR: 110, elevated temp. LS CTA, RA. Pt denied any pain, nausea, SOB. Pt incontinent of urine and stool in brief during shift. Transfer orders pending. Pt appears resting watching television, call light within reach.
--- NOTE | 2024-01-23 00:07 | PM.DS1 ---
DS: Providers Provider Date Seen: 01/23/24 Date of admission: 01/17/24 21:21 Primary care physician: Rubén Boyle MD Admitting Clinician: Juan Manuel Brown MD Consults: 01/19/24 12:02 Consult to Occupational Therapy [CONS] Routine Comment: Reason(s) for OT Consult:: Evaluate and Treat Any Restrictions?:: No Restrictions Consult to Physical Therapy [CONS] Routine Comment: Reason(s) for PT Consult:: Evaluate and Treat Any Restrictions?:: No Restrictions Attending Physician on discharge: Tiffanie Salcedo MD DS: Diagnosis Discharge Diagnosis (1) Emphysematous pyelonephritis: Status: Acute Problem details: 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 Urgent subspecialty consultation is recommended further management. Bl Cx sent Lactate wnl IVF 500 cc (though not at 30 cc/kg as pt has Hx of CHF) Repeat UA, stool Cx. C-diff repeated today was negative. PO Vanc ordered today d/t Hx of recurrent C-Diff, Will continue. [facility] informed me that he has Hx of Enterococcus bacteremia that is sensitive only to Linezolid which we don?t have. Pt is waitlisted at [facility] as there were no bed. Also, we contacted [place] and [place] no beds too. Trying to contact other centers. Upgraded his Abx to zosyn (@ 2.25 g IV q6h and consulted pharm for renal dosing) to cover pseudomonas. (2) Elevated temperature: Status: Acute Problem details: Pt has been spiking fevers though he was given Tylenol. (3) Kidney transplant recipient: Status: Acute Problem details: Continue tacrolimus, level sent out. ROSANA as above Followed by Transplant Clinic at the [facility] Tacrolimus level elevated at 36 on 01/17/2024. Will recheck level now. (4) Liver transplant recipient: Status: Acute Problem details: Continue tacrolimus, level sent out. Total bili 1.4 Followed by Transplant Clinic at the [facility] Tacrolimus level elevated at 36 on 01/17/2024. Will recheck level now. (5) Diarrhea: Status: Acute Problem details: stool Cx. C-diff repeated today was negative. PO Vanc ordered today d/t Hx of recurrent C-Diff, Will continue. (6) Acute renal failure: Status: Acute Problem details: Creatinine of 4.4, about 3 times baseline of 1.4-1.6. Associated metabolic acidosis. Most likely due to acute pre renal azotemia from diarrhea and poor oral intake. With kidney transplant history also concerned about transplanted kidney. Attempted to transfer to [facility] transplant service but they have no ability to take him tonight-no beds. 01/17: [employer] 3.3, BUN 60, downtrending. Potassium 5.3, 4.9 on admission Continue IVF One time IV lasix dose given. Holding home dose 20mg daily. Recheck BMP at 1400pm Patient verbalizes he does not want to be transferred to the [facility] at this point, pending continued improvement. Understands he would need to be if worsening or no improvement 01/18: Creatinine 2.4, BUN 44, potassium 4.4. Restart home Lasix, monitoring renal function. Continue gentle IVF, trending labs, monitoring for fluid overload 01/19: Cr 1.9, BUN 31, K 4.0. Oral intake normalizing. Saline lock IV. Monitor. 01/20: Creatinine 1.9. 01/22/2024: Creatinine 1.8. BUN down to 32. (7) CHF (congestive heart failure): Status: Acute Problem details: Stable. Appeared hypovolemic upon admission, but will need to be careful with IVF. He's had 2L IVF total. Saline lock now and monitor. (8) Type 2 diabetes mellitus, without long-term current use of insulin: Status: Acute Problem details: Restart glipizide. Continue Insulin sliding scale. Glucose > 200 past 24 hours, increasing scale 01/21: Glucose ranging from 115-150 (9) Recurrent Clostridioides difficile diarrhea: Status: Ruled-out Problem details: Patient is having his 5th C diff episode of C diff colitis since October 2022. He is unable to recall any of his previous hospitalizations or treatments or evaluation for this. Unclear if he is getting appropriate follow-up evaluation. Previously referred to [facility] but probably did not make an appointment RULED OUT. Discontinue Vancomycin (patient reported as noncompliant with home dosing following previous discharge) DS: Summary Hospital Course Hospital Course: a 73 yo M with h/o renal transplant, liver transplant (on azathioprine and tacrolimus), CHF, DM2, HTN, h/o recurrent C diff, esophagitis, GERD, BPH, hypertension, history of mitral regurgitation, history of alcoholism, TAVR, presenting to the ER with symptoms of diarrhea and abdominal pain.He has had recurrent hospitalizations for C diff infections with symptoms similar to current presentation, profound weakness, dehydration, diarrhea and altered mental status. From October 2022 through August 2023 he had 5 hospitalizations with C diff colitis. He was referred to [facility] but it is not clear that he ever followed through with that appointment. Pt has been spiking fevers though he was given Tylenol. He was Tachycardic to 120s & Confused. No focal weakness, pt following simple commands. Abdominal lower quadrants tenderness on palpation, no rigidity or involuntary Pt is immunosuppressed (thus, unable to mount an effective immune response/ WBCs WNL) + meeting criteria for sepsis (HR 120, Fever). 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 Urgent subspecialty consultation is recommended further management. Bl Cx sent. C-diff repeated 01/21 was negative.PO Vanc ordered today d/t Hx of recurrent C-Diff. Contacted [facility] were he had his transplant back in 2016 to discuss his management options including transfer for possible percutaneous drainage but they dont have beds. [facility] informed me that he has Hx of Enterococcus bacteremia that is sensitive only to Linezolid which we don?t have. Thus, pt is to be transferred to [place]. Status at Discharge Cognitive/behavioral status at discharge: Intermittent confusion Time Spent with Patient Time attestation: Total time spent providing and/or coordinating discharge services: Time spent: Greater than 30 minutes Exam Const: Vital Signs, click to edit/add: Vital Signs - 24 hr 01/22/24 00:10 01/22/24 02:20 01/22/24 07:00 Temperature 98.8 F 98.8 F 100.5 F H Pulse Rate [Pulse Oximeter] 80 78 106 H Respiratory Rate 18 16 16 Blood Pressure [Le ft Arm] Blood Pressure [Ri ght Arm] 154/93 H 163/82 H 169/89 H Pulse Oximetry 99 99 98 Oxygen Delivery Nv thod Room Air Room Air Room Air 01/22/24 07:00 01/22/24 12:39 01/22/24 15:00 Temperature 100.2 F H Pulse Rate [Pulse Oximeter] 106 H 109 H 120 H Respiratory Rate 16 16 20 Blood Pressure [Le ft Arm] Blood Pressure [Ri ght Arm] 135/64 Pulse Oximetry 98 Oxygen Delivery Me thod 01/22/24 16:09 01/22/24 16:21 01/22/24 17:56 Temperature 101.6 F H 101.6 F H 101.8 F H Pulse Rate [Pulse Oximeter] 120 H Respiratory Rate 20 Blood Pressure [Le ft Arm] Blood Pressure [Ri ght Arm] 185/90 H Pulse Oximetry 100 Oxygen Delivery Me thod Room Air 01/22/24 19:00 Temperature 101.1 F H Pulse Rate [Pulse Oximeter] 110 H Respiratory Rate 22 Blood Pressure [Le ft Arm] 143/66 H Blood Pressure [Ri ght Arm] Pulse Oximetry 98 Oxygen Delivery Me thod Room Air DS: Data Data Completed and Pending Completed studies during hospitalization: Procedures Excision of Esophagus, Via Natural or Artificial Opening Endoscopic, Diagnostic (09/12/23) Excision of Upper Esophagus, Via Natural or Artificial Opening Endoscopic, Diagnostic (09/12/23) Transfusion of Nonautologous Red Blood Cells into Peripheral Vein, Percutaneous Approach (11/26/22) Labs on day of discharge: Labs from last 24 hours 01/22/24 01/22/24 01/22/24 18:17 17:09 12:39 WBC RBC Hgb Hct MCV MCH MCHC RDW Coeff of Warren Plt Count Neut % (Auto) Lymph % (Auto) [place] % (Auto) Eos % (Auto) Baso % (Auto) Neut # (Auto) Lymph # (Auto) [place] # (Auto) Eos # (Auto) Baso # (Auto) Abs Immat Gran (auto) Imm/Tot Granulo (auto) Sodium Potassium Chloride Carbon Dioxide Anion Gap BUN Creatinine Estimated Creat Clear Estimated GFR Glucose Lactate 0.7 Calcium Total Bilirubin Direct Bilirubin AST ALT Alkaline Phosphatase Ammonia < 9.0 L Total Protein Albumin Lipase Procalcitonin Urine Color Yellow Urine Appearance Cloudy A Urine pH 5.5 Ur Specific [place] 1.015 Urine Protein 1+ A Urine Glucose (UA) 1+ A Urine Ketones Negative Urine Blood 1+ A Urine Nitrite Positive A Urine Bilirubin Negative Urine Urobilinogen 0.2 Ur Leukocyte Esterase 1+ A Urine RBC 0-2 Urine WBC 25-50 A Urine WBC Clumps Few A Ur Squamous Epith Cells None Urine Bacteria Moderate A Stl C. diff Tox B Gene Stl C. diff 027-NAP1-BI Tacrolimus (LC/MS/MS) SARS-CoV-2 (PCR) Negative SARS-CoV-2 Lab Acknowledgement 01/22/24 01/22/24 01/22/24 11:24 11:07 10:47 WBC RBC Hgb Hct MCV MCH MCHC RDW Coeff of [place] Plt Count Neut % (Auto) Lymph % (Auto) [place] % (Auto) Eos % (Auto) Baso % (Auto) Neut # (Auto) Lymph # (Auto) [place] # (Auto) Eos # (Auto) Baso # (Auto) Abs Immat Gran (auto) Imm/Tot Granulo (auto) Sodium Potassium Chloride Carbon Dioxide Anion Gap BUN Creatinine Estimated Creat Clear Estimated GFR Glucose Lactate Calcium Total Bilirubin Direct Bilirubin AST ALT Alkaline Phosphatase Ammonia Total Protein Albumin Lipase Procalcitonin Urine Color Urine Appearance Urine pH Ur Specific [place] Urine Protein Urine Glucose (UA) Urine Ketones Urine Blood Urine Nitrite Urine Bilirubin Urine Urobilinogen Ur Leukocyte Esterase Urine RBC Urine WBC Urine WBC Clumps Ur Squamous Epith Cells Urine Bacteria Stl C. diff Tox B Gene Negative Stl C. diff 027-NAP1-BI PRESUMPTIVE NEGATIVE Tacrolimus (LC/MS/MS) SARS-CoV-2 (PCR) Lab Acknowledgement Test Added Test Added 01/22/24 06:27 WBC 6.40 RBC 3.42 L Hgb 11.1 L Hct 31.3 L MCV 92 MCH 33 MCHC 36 RDW Coeff of [place] 13.9 Plt Count 137 L Neut % (Auto) 78.2 H Lymph % (Auto) 13.8 L [place] % (Auto) 5.6 Eos % (Auto) 1.9 Baso % (Auto) 0.2 Neut # (Auto) 5.00 Lymph # (Auto) 0.90 [place] # (Auto) 0.40 Eos # (Auto) 0.12 Baso # (Auto) 0.01 Abs Immat Gran (auto) 0.02 Imm/Tot Granulo (auto) 0.3 Sodium 137 Potassium 4.9 Chloride 105 Carbon Dioxide 23 Anion Gap 9 BUN 32 H Creatinine 1.8 H Estimated Creat Clear 37.64 Estimated GFR 40 Glucose 142 H Lactate Calcium 9.0 Total Bilirubin 1.2 Direct Bilirubin 0.4 AST 16 ALT 7 Alkaline Phosphatase 64 Ammonia Total Protein 6.9 Albumin 3.9 Lipase 38 Procalcitonin 0.11 Urine Color Urine Appearance Urine pH Ur Specific [place] Urine Protein Urine Glucose (UA) Urine Ketones Urine Blood Urine Nitrite Urine Bilirubin Urine Urobilinogen Ur Leukocyte Esterase Urine RBC Urine WBC Urine WBC Clumps Ur Squamous Epith Cells Urine Bacteria Stl C. diff Tox B Gene Stl C. diff 027-NAP1-BI Tacrolimus (LC/MS/MS) Pending SARS-CoV-2 (PCR) Lab Acknowledgement Preliminary micro results at discharge 01/22/24 18:17 Urine Culture - Preliminary Urine,Clean Catch Culture in Progress 01/18/24 11:22 Stool Culture - Preliminary Stool Discharge Plan Discharge Disposition: [facility] Discharge Location: [facility] Date of Admission: 01/17/24 21:21 Attending Provider on Discharge: Tiffanie Salcedo Primary Care Provider: Rubén Boyle Condition: Stable Discharge Orders: Transfer of Care to Other Hospital (ORDER); Ordered 01/23/24 Ordered By: Tiffanie Salcedo Additional Instructions: Patient needs to follow up with PCP and Nephrology. Oxygen: No Services not available here: Nephrology
--- NOTE | 2024-01-23 02:28 | PC.NURSE ---
2300 REPORT GIVEN TO RN ON 8200 AT [facility] BY SUPRIYA HAGAN. AT 0045 EMS HERE TO TRANSPORT PT TO [facility]. LEFT AT 0100. UN[address] CALL AND UPDATED ON DEPARTURE TIME.
[2024-01-24 07:34] LABS: Tacrolimus by HPLC-MS/MS 11.2 ng/mL
== END 2024-01-23 01:35 | disposition short-term general hospital (02) | DRG 698 ==
LOC: ED 18:19 → MEDSURG 21:01
PROVIDERS: Internal Medicine; Physician Assistant; Student in an Organized Health Care Education/Training Program; Admitting Provider Family Medicine; Emergency Provider Emergency Medicine; PCP Family Medicine; Visit Provider Family Medicine
DX: T86.13 Kidney transplant infection (principal); A41.81 Sepsis due to Enterococcus; G93.41 Metabolic encephalopathy; N10 Acute pyelonephritis; N17.9 Acute kidney failure, unspecified; E87.21 Acute metabolic acidosis; I13.0 Hypertensive heart and chronic kidney disease with heart failure and stage 1 through stage 4 chronic kidney disease, or unspecified chronic kidney disease; Z94.4 Liver transplant status; D84.81 Immunodeficiency due to conditions classified elsewhere; F33.9 Major depressive disorder, recurrent, unspecified; R19.7 Diarrhea, unspecified; N18.31 Chronic kidney disease, stage 3a; Z94.0 Kidney transplant status; I50.9 Heart failure, unspecified; E11.22 Type 2 diabetes mellitus with diabetic chronic kidney disease; E11.40 Type 2 diabetes mellitus with diabetic neuropathy, unspecified; E86.0 Dehydration; R62.7 Adult failure to thrive; Z79.84 Long term (current) use of oral hypoglycemic drugs; F10.11 Alcohol abuse, in remission; Z91.199 Patient's noncompliance with other medical treatment and regimen due to unspecified reason; E87.5 Hyperkalemia; K21.9 Gastro-esophageal reflux disease without esophagitis; I34.0 Nonrheumatic mitral (valve) insufficiency; N40.0 Benign prostatic hyperplasia without lower urinary tract symptoms; Z96.643 Presence of artificial hip joint, bilateral; Z95.5 Presence of coronary angioplasty implant and graft; Z87.891 Personal history of nicotine dependence; E78.5 Hyperlipidemia, unspecified
CPT/HCPCS: 36415; 71046; 74176; 80048; 80053; 80076; 80197; 81001; 81003; 82140; 82962; 83605; 83690; 83735; 84145; 84550; 85025; 85027; 86140; 87040; 87045; 87046; 87077; 87086; 87186; 87427; 87493; 87631; 87635; 93005; 97110; 97116; 97162; 97166; 97530; 97535; 99284; 99285; A9270; J0696; J1836; J1940; J2405; J2543; J7030; J7120; J7500; J7507

== ENCOUNTER 2024-01-23 00:55 | Outpatient (CLI) | payer MEDICARE, BC, SELFPAY ==
--- OUTSIDE RECORDS SUMMARY | 2024-01-26 22:26 | XMS_ITS | Clinical Summary ---
Author Organization [place] Address [address] [place] [address] Care Team Providers Care Boat Canvas Maker And Installer Name Role Phone Rubén Boyle MD Primary Care Provider Pamela Blanco FOAM GUN OPERATOR Unavailable [phone] Pedro Segura MD Unavailable Freddy Craft MD Unavailable Deshawn Guevara FOAM GUN OPERATOR Unavailable Andressa Ruiz-C Unavailable Suzan Harry MD Unavailable [phone] Yasmeen Powers MD Unavailable [phone] Yasmeen Powers MD Unavailable [phone] Allergies Active Allergy Reactions Criticality Noted Date [...] (PEN NEEDLES 08/31) 31G X 8 MM [facility] [place] administering insulin at home QID. 7 [...] packet 3 Active azaTHIOprine (IMURAN) 50 MG tabletIndications:Hist ory of liver transplant (H),Status post kidney transplant,Long-term use of immunosuppressant medication Take 3 tablets (150 mg) by mouth daily 270 tablet 1 4 Active tacrolimus (GENERIC EQUIVALENT) 1 MG capsuleIndications:Jennifer er replaced by transplant (H) Take 2 capsules (2 mg) by mouth every morning AND 3 capsules (3 mg) every evening. 450 capsule 3 4 Active Active Problems Patient Care Coordination No te Formatting of this note migh t be different from the original. [facility] [place], [place] Fax #: [phone] Pharm - [facility] Specialty [...] 08/02/2016 10/03/2016 Acute kidney injury 08/02/2016 10/04/19 17 Protein-calorie malnutrition, severe 08/02/2016 07/11/2018 Physical deconditioning [...] Encounters Date Type Department Care Team Description 01/26/2024 Hospital Encounter [facility] [address] [phone] David Beatriz 01/17/2024 Telephone [facility] Services - General Medicine & Pediatrics [address] [place] [address] Tha Olvera MD 01/11/2024 Telephone [facility] [address] [place] [phone] Felipa Raya, gang vibrator operator 01/03/2024 MyC Medical Advice [facility] [address] [place] [phone] Calli Hall RN 12/28/2023 Telephone [facility] [address] [place] [phone] Laurie Carmen LPN Prior Auth - Medication (Tacrolimus 1mg) 12/16/2023 Telephone [facility] [address] [place] [phone] Malinda Alves, gang vibrator operator Immunosuppression Management 12/13/2023 External Order Results [facility] [address] [place] [address] Outside, Provider Liver replaced by transplant (H) 11/18/2023 Orders Only [facility] [address] [place] [phone] Freddy Craft MD Liver replaced by transplant (H) (Primary Dx) from Last 3 Months Immunizations [...] DT Respiratory Rate 14 03/02/2022 4:40 AM LAUNDRY PRESS OPERATOR Oxygen Saturation 96% 10/11/2023 11:30 AM CDT [...] this topic Medical Devices Implanted Type Area 3D Designer Device Identifier Shelf Expiration Date Model / Serial / Lot Stent Coronary Gelacio Synergy Xd Mr Us [id number] - [id number] Implanted:Qty: 1 on 02/12/2022 at [employer] ([employer]) [employer] 03/09/2023 [id number] / / [id number] Stent Coronary Gelacio Synergy Xd Mr Us [id number] - [id number] Implanted:Qty: 1 on 02/12/2022 at [employer] ([employer] 03/16/2023 [id number] / / [id number] Closure Angioseal 6fr [id number] - [id number] Implanted:Qty: 1 on 02/12/2022 at [facility]/15/2022 [id number] / / [id number] Closure Angioseal 6fr 895689 - [id number] Implanted:Qty: 1 on 02/12/2022 at [facility] 11/15/2022 [id number] / / [id number] Closure Angioseal 6fr [id number] - [id number] Implanted:Qty: 1 on 02/24/2022 at [facility] 09/15/2022 [id number] / / [id number] Explanted Type Area 3D Designer Device Identifier Shelf Expiration Date Model / Serial / Lot Stent Ureteral Soft Universa [id number] Implanted:Qty: 1 on 07/11/2016 by Aime Vu MD at Explanted:Qty: 1 on 08/19/2016 by Aime Vu MD at Stent N/A: Ureter [employer] 02/12/2019 -[id number] / / [id number] Procedures Procedure Name Priority Date/Time Associated Diagnosis Comments TACROLIMUS BY TANDEM MASS SPECTROMETRY Routine 12/13/2023 12:00 AM CDT Liver replaced by transplant (H) CBC WITH PLATELETS Routine 09/30/2023 9: 40 AM CDT Liver replaced by transplant (H) BASIC METABOLIC PANEL Routine 09/30/2023 9:40 AM CDT Liver replaced by transplant (H) HEPATIC FUNCTION PANEL Routine 04/05/2023 12:30 PM LAUNDRY PRESS OPERATOR Liver replaced by transplant (H) LIPID PROFILE Routine 01/31/2023 8:54 AM CDT S/P TAVR (transcatheter aortic valve replacement) Coronary artery disease involving oglala sioux coronary artery of oglala sioux heart without angina pectoris UA MACROSCOPIC WITH REFLEX TO MICRO AND CULTURE Routine 02/25/2022 9:55 PM [address] PRESS OPERATOR CT ABDOMEN PELVIS W/O CONTRAST STAT 02/25/2022 12:10 AM LAUNDRY PRESS OPERATOR HEMOGLOBIN A1C Routine 02/24/2022 9:42 [address] ANGIOGRAM TAVR Routine 01/13/2022 12: 33 PM CDT Other ill-defined heart diseases Severe aortic stenosis HEPATITIS C ANTIBODY Routine 05/13/2020 8:50 AM LAUNDRY PRESS OPERATOR ALBUMIN RANDOM URINE QUANTITATIVE Routine 05/17/2019 10:05 AM LAUNDRY PRESS OPERATOR COLONOSCOPY Routine 03/31/2017 10:57 AM LAUNDRY PRESS OPERATOR TSH STAT 07/02/2016 3:42 PM CDT from [...] ORD ERABLES Performing Organization Address City/[facility]/ZIP Co de Phone Number BREEZE PFT NON-INTERFACED (ONBASE SCANS) * (ABNORMAL) Basic metabolic panel (09/30/2023 9:40 AM CDT) [facility] Sodium (External) 138 135 - 149 mmol/L [...] SCANS) * Hepatic panel (04/05/2023 12:30 PM LAUNDRY PRESS OPERATOR) Protein Total (External) 6.3 6.0 - 8.3 [...] BLOOD SPECIMEN / Unknown 04/05/2023 12:30 PM LAUNDRY PRESS OPERATOR Narrative SAMANTHA PFT - 04/07/2023 6:33 AM LAUNDRY PRESS OPERATOR Verified by Yamil Santo on 04/07/2023. Freddy Dumont MD LAB - BLOOD ORD ERABLES SAMANTHA PFT NON-INTERFACED (ONBASE SCANS) * (ABNORMAL) Lipid Profile (01/31/2023 8:54 AM CDT) Cholesterol 104 <200 mg/dL 01/31/2023 9:30 AM CDT [facility] - CORE LAB Triglycerides 225(H) <150 mg/dL 01/31/2023 9:30 AM CDT [facility] - CORE LAB Direct Measure HDL 33(L) >=40 mg/dL 01/31/2023 9:30 AM CDT [facility] - [facility]ORE LAB LDL Cholesterol Calculated 26 <=100 mg/dL 01/31/2023 9:30 AM CDT [facility] - CORE LAB Non HDL Cholesterol 71 <130 mg/dL 01/31/2023 9:30 AM CDT [facility] - CORE LAB Blood STRUCTURE OF LEFT UPPER LIMB / Unknown Venipuncture / Unknown 01/31/2023 8:54 AM CDT 01/31/2023 8:57 AM CDT Narrative [facility] - CORE LAB - 01/31/2023 9:30 [...] ORDERA BLES [facility] - CORE LAB [facility] - [address] 1st [place] [address] * (ABNORMAL) UA reflex to Microscopic and Culture (02/25/2022 9:55 PM LAUNDRY PRESS OPERATOR) Color Urine Yellow Colorless, Straw, Light Yellow, Yellow 02/25/2022 10:20 PM LAUNDRY PRESS OPERATOR [facility] Appearance Urine Clear Clear 02/26/20 10:20 PM LAUNDRY PRESS OPERATOR [facility] Glucose Urine 100(A) Negative mg/dL 02/25/2022 10:20 PM LAUNDRY PRESS OPERATOR [facility] Bilirubin Urine Negative Negative 10:20 PM LAUNDRY PRESS OPERATOR [facility] Ketones Urine 20(A) Negative mg/dL 02/25/2022 10:20 PM LAUNDRY PRESS OPERATOR [facility] Specific [place] Urine 1.026 1.003 - 1.035 02/25/2022 10:20 PM LAUNDRY PRESS OPERATOR [facility] Blood Urine Negative Negative 02/25/2022 10:20 PM LAUNDRY PRESS OPERATOR [facility] pH Urine 5.0 5.0 - 7.0 02/25/2022 10:20 PM LAUNDRY PRESS OPERATOR [facility] Protein Albumin Urine 10(A) Negative mg/dL 02/25/2022 10:20 PM LAUNDRY PRESS OPERATOR [facility] Urobilinogen Urine Normal Normal, 2.0 mg/dL 02/25/2022 10:20 PM LAUNDRY PRESS OPERATOR [facility] Nitrite Urine Negative Negative 02/25/2022 10:20 PM LAUNDRY PRESS OPERATOR [facility] Leukocyte Esterase Urine Negative Negative 02/25/2022 10:20 PM LAUNDRY PRESS OPERATOR [facility] Mucus Urine Present(A) None Seen /LPF 02/25/2022 10:20 PM LAUNDRY PRESS OPERATOR [facility] RBC Urine <1 <=2 /HPF 02/25/2022 10:20 PM LAUNDRY PRESS OPERATOR [facility] WBC Urine 1 <=5 /HPF 02/25/2022 10:20 PM LAUNDRY PRESS OPERATOR [facility] Squamous Epithelials Urine <1 <=1 /HPF 02/25/2022 10:20 PM LAUNDRY PRESS OPERATOR [facility] Hyaline Casts Urine 4(H) <=2 /LPF 02/25/2022 10:20 PM LAUNDRY PRESS OPERATOR [facility] Urine URINE SPECIMEN OBTAINED BY CLEAN CATCH PROCEDURE / Unknown Non-blood Collection / Unknown 02/25/2022 9:55 PM LAUNDRY PRESS OPERATOR 02/25/2022 10:01 PM LAUNDRY PRESS OPERATOR Narrative [facility] - 02/25/2022 10:20 PM LAUNDRY PRESS OPERATOR Urine Culture not indicated Rubén Zambraon MD LAB - URINE ORDERABL ES [facility] Core Lab [address] [facility], Room [address] [place] [phone] [phone] * CT Abdomen Pelvis w/o Contrast (02/25/2022 12:10 AM LAUNDRY PRESS OPERATOR) Anatomical Region Laterality Modality Abdomen/Pelvis, SUBRAD CT MINA DY, UMP CT ABDOMEN PELVIS, RAD CT Computed Tomography Impressions 02/25/2022 8:18 AM LAUNDRY PRESS OPERATOR IMPRESSION: 1. 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 2. Colonic diverticulosis without evidence of acute diverticulitis. 3. No intra-abdominal findings to suggest etiology for patient's symptoms. I have personally reviewed the examination and initial interpretation and I agree with the findings. SEA WOOD MD Narrative 02/25/2022 8:18 AM LAUNDRY PRESS OPERATOR EXAMINATION: CT ABDOMEN PELVIS W/O CONTRAST, 02/25/2022 [...] lesions. Unremarkable spleen. No adrenal nodules. Atrophic oglala sioux kidneys with simple renal cyst in the [...] lesions. Unremarkable spleen. No adrenal nodules. Atrophic oglala sioux kidneys with simple renal cyst in the [...] * (ABNORMAL) Hemoglobin A1c (02/24/2022 9:42 PM LAUNDRY PRESS OPERATOR) Hemoglobin A1C 5.7(H) <5.7 % 02/24/2022 11:58 PM LAUNDRY PRESS OPERATOR [facility] Comment: Normal <5.7% Prediabetes 5.7-6.4% ?? Diabetes 6.5% or higher Note: Adopted from ADA consensus guidelines. Blood STRUCTURE OF LEFT HAND / Unknown Venipuncture / Unknown 02/24/2022 9:42 PM LAUNDRY PRESS OPERATOR 02/24/2022 9:55 PM LAUNDRY PRESS OPERATOR Theresa Ayala CLAIMS SUPPORT SPECIALIST [facility] - BLOOD OR DERABLES [facility] [place] Core Lab [address] [facility], Room [address] [place] [address], [facility] [phone] * CT Angiogram TAVR (01/13/2022 12:33 PM [...] aortic root calcification. 3. ??There are significant oglala sioux coronary calcifications. 4. ??The arch vessel branching pattern is normal. 5. ??The suprarenal abdominal aorta is moderately calcified; infrarenal abdominal aorta is severely calcified 6. ??Widely patent origins of celiac trunk, superior mesenteric artery and inferior mesenteric artery. ??Single bilateral renal arteries with widely patent origins. 7. ??There is no acute aortic pathology, such as dissection, intramural hematoma, or contained rupture. MEASUREMENTS: Air Analysis Technician dimensions of the thoracoabdominal aorta are [...] in a spiral gated mode with limited [id number]-he-[id number] followed by gated high pitch spiral CTA of the chest, abdomen, pelvis at 120 kVP to evaluate the thoracoabdominal aorta and iliac vasculature. Scan protocol was optimized to minimize radiation exposure. The total radiation exposure was 1817 DLP and 25.4 mSv. Images were reconstructed and analyzed on a [employer] Workstation. Procedure Note Praful Bowen MD - [...] in a spiral gated mode with limited nhavt-kl-ebvw followed by gated high pitch spiral CTA of the chest, abdomen, pelvis at 120 kVP to evaluate the thoracoabdominal aorta and iliac vasculature. Scan protocol was optimized to minimize radiation exposure. The total radiation exposure was 1817 DLP and 25.4 mSv. Images were reconstructed and analyzed on a [employer] Workstation. IMPRESSION: 1. See below for TAVR [...] aortic root calcification. 3. There are significant oglala sioux coronary calcifications. 4. The arch vessel branching pattern is normal. 5. The suprarenal abdominal aorta is moderately calcified; infrarenal abdominal aorta is severely calcified 6. Widely patent origins of celiac trunk, superior mesenteric artery and inferior mesenteric artery. Single bilateral renal arteries with widely patent origins. 7. There is no acute aortic pathology, such as dissection, intramural hematoma, or contained rupture. MEASUREMENTS: Air Analysis Technician dimensions of the thoracoabdominal aorta are [...] follow separately PRAFUL GORDON MD Deshawn Guevara FOAM GUN OPERATOR IMG CT ORDERABLES * Hepatitis C antibody (05/13/2020 8:50 AM LAUNDRY PRESS OPERATOR) Pathologist [facility] Hepatitis C Antibody (External) Negative Negative LABDE SCAN Blood specimen (specimen) 05/13/2020 8:50 AM LAUNDRY PRESS OPERATOR Narrative BREEZE PFT - 05/15/2020 7:27 AM LAUNDRY PRESS OPERATOR Verified by Cruzito Marlow on 05/15/2020. Patient Reported LAB - BLOOD ORDERABL ES BREEZE PFT LABDE SCAN * Albumin Random Urine Quantitative with Creat Ratio (05/17/2019 10:05 AM LAUNDRY PRESS OPERATOR) Pathologist [facility] Microalbumin Urine (External) 1 mg/dl LABDE SCAN Creatinine Urine mg/dL (External) 106 mg/dl LABDE SCAN Microalbumin Urine mg/g Cr (External) 9 0 - 30 mg/g LABDE SCAN Urine specimen (specimen) 05/17/2019 10:05 AM LAUNDRY PRESS OPERATOR Narrative BREEZE PFT - 05/23/2019 7:16 AM LAUNDRY PRESS OPERATOR Verified by Pedrito Stallworth on 05/23/2019. Patient Reported LAB - URINE ORDERABL ES BREEZE PFT LABDE SCAN * COLONOSCOPY (03/31/2017 10:57 AM LAUNDRY PRESS OPERATOR) Pathologist [facility] COLONOSCOPY [address] [place] [address] [phone] ? Endoscopy Department Patient Name: Lito Mora [...] of the exam. Signature of teaching physician [id number] Ballard MD Number of Addenda: 0 Note Initiated On: 03/31/2017 10:57 AM Scope In: Scope Out: RADIOLOGY RESULTS 03/31/2017 10:5 7 AM LAUNDRY PRESS OPERATOR Freddy Dumont MD PROCEDURES RADIOLOGY RESULTS * TSH (07/02/2016 3:42 PM CDT) TSH 0.95 0.40 - 4.00 mU/L [facility] Blood specimen (specimen) 07/02/2016 3:42 PM CDT 07/02/2016 4:14 PM CDT Angela Dias MD LAB - BLOOD ORDERAB LES [facility] [address] [place] [address] from Last 3 Months or Most Recently Relevant to Health Maintenance Additional Health Concerns Infection Onset Date 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/16 urine, 07/10/16 rectal swab 06/21/2016 06/21/2016 Advance Directives For more information, please contact: [phone] * Full Code (Latest Code Status on [...] 3:12 PM 11/15/2016 8:38 PM Care Teams Boat Canvas Maker And Installer Relationship Specialty Start Date End Date Rubén Boyle MD PCP - General Family Practice 03/08/16 Pamela Blanco NP [facility] [address] [place] [address] Referring Physician 07/13/16 Pedro Segura MD [facility] [address] [place] [address] Nephrology 10/03/16 Freddy Craft MD [address] [facility] [place], [place] [address] Assigned Gastroenterology Provider 02/08/20 Deshawn Guevara NP [address] [facility] [address] [place], [place] [address] Assigned Heart and Vascular Provider 01/09/22 Andressa Ruiz PA-C 420 [facility] [address]03 [place], [place] [address] Physician Emission Technician Endocrinology, Diabetes, and Metabolism 03/01/22 Suzan Harry MD [address] [place], [place] [address] Nephrology 06/30/23 Yasmeen Powers MD 500 [place], [place] [address] Nephrology 10/24/23 Yasmeen Powers MD [address] [place], [place] [address] Assigned Nephrology Provider 11/08/23
--- OUTSIDE RECORDS SUMMARY | 2024-01-26 22:26 | XMS_ITS | Encounter Summary ---
Author Organization [place] Address [address] [place] [address] Care Team Providers Care Detail Technician Name Role Phone Rubén Boyle MD Primary Care Provider Pamela Blanco SYSTEMS LIBRARIAN Unavailable Pedro Segura MD Unavailable Freddy Craft MD Unavailable [phone] Nicole Carranza SYSTEMS LIBRARIAN Unavailable Andressa Ruiz PA-C Unavailable Suzan Harry MD Unavailable [phone] Yasmeen Powers MD Unavailable [phone] Yasmeen Powers MD Unavailable Encounter Details Date Type Department Care Team (Late st Contact Info) Description 01/26/2024 Hospital Encounter M [facility] Unit [address] [place] [address] [place] [address] Beatriz Hernandez [address] [place], [place] [address] Social History Tobacco Use Types Packs/Day Years [...] as of this encounter Progress Notes * Beatriz Hernandez - 01/22/2024 9:32 PM CDT [facility] Transfer Triage Note Date of call: 01/22/24 Time of call: 9:33 PM Reason for transfer: Further diagnostic work up, management, and consultation for specialized care Diagnosis: emphysematous pyelonephritis Outside Records: Not available. Additional records requested to be faxed to [phone]. Stability of Patient: Patient is vitally stable, with no critical labs, and will likely remain stable throughout the transfer process ICU: No We received a phone call through our Physician Access line from Dr. Briseno at [facility]. My understanding from this phone call is that Lito Mora with 1950 is a 73 year old male with hx of kidney and liver transplant in 2017 here at the [facility] who presented with sepsis and AMS. 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 CT scan today (01/21) showed emphysematous pyelonephritis. Transfer Accepted? Yes Additional Comments [place] does not have intelligence engineer on staff and pt would benefit from being seen by transplant nephrology. 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 Sending facility plans to transport patient via ambulance: Yes Expected Time of Arrival for Transfer: Unclear, no beds at this time on [place] Beatriz Hernandez 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, 07/10/16 rectal swab 06/21/2016 06/21/2016 documented as of this encounter Care Teams Detail Technician Relationship Specialty Start Date End Date Rubén Boyle MD PCP - General Family Practice 03/08/16 Pamela Blanco NP [facility] [address] [place] [address] Referring Physician 07/13/16 Pedro Segura MD [facility] [address] [place], [place] [address] Nephrology 10/03/16 Freddy Craft MD [address] [place] [address] [address] [place], [place] [address] Assigned Gastroenterology Provider 02/08/20 Nicole Carranza NP 420 [facility] 508 [place], [place] [address] Assigned Heart and Vascular Provider 01/09/22 Andressa Ruiz PA-C 420 [facility] 803 [place], [place] [address] Physician Fisherman Helper Endocrinology, Diabetes, and Metabolism 03/01/22 Suzan Harry MD 420 [place] [address] Nephrology 06/30/23 Yasmeen Powers MD 500 [place], [place] [address] Nephrology 10/24/23 Yasmeen Powers MD 500 [place] [address] Assigned Nephrology Provider 11/08/23 documented as of this encounter
--- OUTSIDE RECORDS SUMMARY | 2024-01-26 22:26 | XMS_ITS | Encounter Summary ---
Author Organization [place] Address [address] [place] [address] Care Team Providers Care Fundraising Specialist Name Role Phone Rubén Boyle MD Primary Care Provider Pamela Blanco AIR BRAKE RIGGER Unavailable Pedro Segura MD Unavailable [phone] Freddy Craft MD Unavailable Nicole Carranza AIR BRAKE RIGGER Unavailable [phone] Andressa Ruiz-C Unavailable Suzan Harry MD Unavailable [phone] Yasmeen Powers MD Unavailable [phone] Yasmeen Powers MD Unavailable [phone] Reason for Visit * Reason Onset Date Comments Prior Auth - Medication 12/28/2023 Tacrolim us 1mg Encounter Details Date Type Department Care Team (Late st Contact Info) Description 12/28/2023 Telephone [facility] [address] [place] [address] Laurie Carmen LPN Prior Auth [...] documented as of this encounter Care Teams Fundraising Specialist Relationship Specialty Start Date End Date Rubén Boyle MD PCP - General Family Practice 03/08/16 Pamela Blanco AIR BRAKE RIGGER [facility] [address] [place] [address] Referring Physician 07/13/16 Pedro Segura MD [facility] [address] [place] [address] Nephrology 10/03/16 Freddy Craft MD 516 [facility] [address] [place], [place] [address] Assigned Gastroenterology Provider 02/08/20 Nicole Carranza NP 420 [facility] [address] [place], [place] [address] Assigned Heart and Vascular Provider 01/09/22 Andressa Ruiz PA-C 420 [facility] [address] [place], [place] [address] Physician Draw Frame Runner Endocrinology, Diabetes, and Metabolism 03/01/22 Suzan Harry MD 420 [place], [place] [address] Nephrology 06/30/23 Yasmeen Powers MD 500 [place] [address] Nephrology 10/24/23 Yasmeen Powers MD 500 [place], [place] [address] Assigned Nephrology Provider 11/08/23 documented as of this encounter
--- OUTSIDE RECORDS SUMMARY | 2024-01-26 22:26 | XMS_ITS | Continuity of Care Document ---
Author Organization [facility] Address [address] [address] [place] [address] Phone Care Team Providers Care Blender Helper Name Role Phone Leo Chisholm Unavailable Unavailable [...] on Encounter Subsqt Hosp-da E&m Minr Compl [facility], [address] [address], [place], [place], [id number], tel:[phone] [facility] No Information 3 Willian Bailey. [address] [facility], [facility] [address], [place], [id number] , [place]. tel:[phone] Referring Provider: Leo DESOUZA, [address] [facility] [address], [place], [address] . tel:[phone] Init Hosp-da E&m Mod Severity [facility], [address] [address], [place], [place], [address], tel:[phone] [facility] No Information 3 Rank MD [place]. [address] [facility], [facility] [address], [place], [place], [id number] , [place]. [phone] Referring Provider: Rubén Boyle MD, [address] [place], [address]. tel:[phone] Init Hosp-da E&m Mod Severity [facility], [address] [address], [place], [place], [address], [place] tel:[phone] [facility] No Information 6 Vignesh Proctor. [address], [id number] , [place]. [phone] Subsqt Hosp-da E&m Minr Compl [facility], [address] [address], [place], [place], [address], [place] tel:[phone] [facility] No Information 6 Ruthann Mukherjee. [address], [id number] , [place]. [phone] Family History Family Member Type Diagnosis Age At Onset No Information Payers Payer name Insurance type Covered green party ID Authoriza tilisa(s) Blue Cross [place] [employer] [place] [id number] Social History Type Description Quantity Date Captured [...]
--- OUTSIDE RECORDS SUMMARY | 2024-01-26 22:26 | XMS_ITS | Clinical Summary ---
Author Organization [facility] Address [address] [address] Phone Care Team Providers Care Angle Bender Name Role Phone Rubén Boyle MD Primary [...] Advance Directives For more information, please contact: [phone] * Full Code (Latest Code Status on File) Date Activated Date Inactivated Comments 01/22/2016 8:55 AM 01/24/2016 5:42 PM Care Teams Angle Bender Relationship Specialty Start Date End Date Rubén Boyle MD PCP - General Family Medicine 01/17/16
--- OUTSIDE RECORDS SUMMARY | 2024-01-26 22:26 | XMS_ITS | Referral Summary ---
Author Organization [facility] Address [address] [place] [address] Care Team Providers Care Scullion Chief Name Role Phone Rubén Boyle MD Primary Care Provider Pamela Blanco CORN DETASSELER MACHINE OPERATOR Unavailable Pedro Segura MD Unavailable [phone] Freddy Craft MD Unavailable Deshawn Guevara CORN DETASSELER MACHINE OPERATOR Unavailable Andressa Ruiz-Citlali Unavailable Suzan Harry MD Unavailable Yasmeen Powers MD Unavailable [phone] Yasmeen Powers MD Unavailable Encounters Date Type Department Care Team Description 01/26/2024 Hospital Encounter [facility] [address] [place] [address] [place] [address] Beatriz Hernandez 01/17/2024 Telephone [facility] Services - General Medicine & Pediatrics [facility] [place] [address] Tha Olvera MD 01/11/2024 Telephone [facility] [address] [place] [address] Felipa Raya measurement specialist 01/03/2024 MyC Medical Advice [facility] [address] [place] [address] Calli Hall RN 12/28/2023 Telephone [facility] [address] [place] [address] Laurie Carmen LPN Prior Auth - Medication (Tacrolimus 1mg) 12/16/2023 Telephone [facility] [address] [place] [address] Malinda Alves RN Transplant Immunosuppression Management 12/13/2023 External Order Results [facility] [address] [place] [address] Outside, Provider 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 [facility] in [place], [place] Fax #: [phone] Pharm - [facility]. Problem Noted Date Diagnosed Date [...] Getting School Help Needed Not on file 09/22 /2023 Sex and Gender Information Value Date Recorded Sex Assigned at Not on file Gender Identity Not on file Sexual Orientation Not on file Last Filed Vital Signs Vital Sign Reading Time Taken Comments Blood Pressure 105/70 10/11/2023 11:30 AM CDT Pulse 86 10/11/2023 11:30 AM CDT Temperature 36.7 ??C (98.1 ??F) 10/11/2023 11:30 AM C DT Respiratory Rate 14 03/02/2022 4:40 AM PANTRY GOODS WORKER Oxygen Saturation 96% 10/11/2023 11:30 AM CDT Inhaled Oxygen Concentration - - Weight 96.3 kg (212 lb 3.2 oz) 10/11/2023 11:30 AM CDT Height 175.3 cm (5' 9) 08/30/2022 8:54 AM CDT Body Mass Index 31.34 08/30/2022 8:54 AM CDT Plan of Treatment Not on file Medical Devices Implanted Type Area Investigator Internal Affairs Device Identifier Shelf Expiration Date Model / Serial / Lot Stent Coronary Gelacio Synergy Xd Mr Us [id number] - [id number] Implanted:Qty: 1 on 02/12/2022 at [facility] Stent Drug Eluting (GELACIO) [employer] 03/09/2023 [id number] / / [id number] Stent Coronary Gelacio Synergy Xd Mr Us [id number] - [id number] Implanted:Qty: 1 on 02/12/2022 at [facility] Stent Drug Eluting (GELACIO) [employer] 03/16/2023 [id number] / / [id number] Closure Angioseal 6fr 212605 - [id number] Implanted:Qty: 1 on 02/12/2022 at [facility] [employer] 11/15/2022 [id number] / / [id number] Closure Angioseal 6fr 710664 - [id number] Implanted:Qty: 1 on 02/12/2022 at [facility] [employer] 11/15/2022 [id number] / / [id number] Closure Angioseal 6fr 975469 - [id number] Implanted:Qty: 1 on 02/24/2022 at [facility] [employer] 09/15/2022 [id number] / / [id number] Explanted Type Area Investigator Internal Affairs Device Identifier Shelf Expiration Date Model / Serial / Lot Stent Ureteral Soft Universa [id number] Us-518 [id number] Implanted:Qty: 1 on 07/11/2016 by Aime Vu MD at [facility] Explanted:Qty: 1 on 08/19/2016 by Aime Vu MD at [facility] Stent N/A: Ureter [employer] 02/12/2019 US-518 / / [id number] Procedures Procedure Name Priority Date/Time Associated Diagnosis Comments TACROLIMUS BY TANDEM MASS SPECTROMETRY Routine 12/13/2023 12:00 AM CDT Liver replaced by transplant (H) CBC WITH PLATELETS Routine 09/30/2023 9: 40 AM CDT Liver replaced by transplant (H) BASIC METABOLIC PANEL Routine 09/30/2023 9:40 AM CDT Liver replaced by transplant (H) HEPATIC FUNCTION PANEL Routine 04/05/2023 12:30 PM PANTRY GOODS WORKER Liver replaced by transplant (H) LIPID PROFILE Routine 01/31/2023 8:54 AM CDT S/P TAVR (transcatheter aortic valve replacement) Coronary artery disease involving hualapai coronary artery of hualapai heart without angina pectoris UA MACROSCOPIC WITH REFLEX TO MICRO AND CULTURE Routine 02/25/2022 9:55 [address] ABDOMEN PELVIS W/O CONTRAST STAT 02/25/2022 12:10 AM PANTRY GOODS WORKER HEMOGLOBIN A1C Routine 02/24/2022 9:42 [address] ANGIOGRAM TAVR Routine 01/13/2022 12: 33 PM CDT Other ill-defined heart diseases Severe aortic stenosis HEPATITIS C ANTIBODY Routine 05/13/2020 8:50 AM PANTRY GOODS WORKER ALBUMIN RANDOM URINE QUANTITATIVE Routine 05/17/2019 10:05 AM PANTRY GOODS WORKER COLONOSCOPY Routine 03/31/2017 10:57 AM PANTRY GOODS WORKER TSH STAT 07/02/2016 3:42 PM CDT from Last 3 Months or Most Recently Relevant to Health Maintenance Results * Tacrolimus by Tandem Mass Spectrometry (12/13/2023 12:00 AM CDT) Pathologist [facility] Tacrolimus(FK-5 06) (External) 8.2 5.0 - 15.0 ng/mL NON-INTERFACED (ONBASE SCANS) Blood BLOOD SPECIMEN / Unknown 12/13/2023 Narrative ERICKTABITHAE PFT - 12/16/2023 11:58 AM CDT Verified by Yamil Santo on 12/16/2023. Freddy Dumont MD LAB - BLOOD ORD ERABLES [facility] PFT NON-INTERFACED (ONBASE SCANS) * (ABNORMAL) Basic metabolic panel (09/30/2023 9:40 AM CDT) Pathologist [facility] Sodium (External) 138 135 - 149 [...] SCANS) * Hepatic panel (04/05/2023 12:30 PM PANTRY GOODS WORKER) Pathologist [facility] Protein Total (External) 6.3 6.0 - 8.3 [...] BLOOD SPECIMEN / Unknown 04/05/2023 12:30 PM PANTRY GOODS WORKER Narrative SAMANTHA PFT - 04/07/2023 6:33 AM PANTRY GOODS WORKER Verified by Yamil Santo on 04/07/2023. Freddy Dumont MD LAB - BLOOD ORD ERABLES SAMANTHA PF NON-INTERFACED (ONBASE SCANS) * (ABNORMAL) Lipid Profile (01/31/2023 8:54 AM CDT) Pathologist [facility] Cholesterol 104 <200 mg/dL 01/31/2023 9:30 AM CDT [facility] Triglycerides 225(H) <150 mg/dL 01/31/2023 9:30 AM CDT [facility] Direct Measure HDL 33(L) >=40 mg/dL 01/31/2023 9:30 AM CDT [facility] LDL Cholesterol Calculated 26 <=100 mg/dL 01/31/2023 9:30 AM CDT [facility] Non HDL Cholesterol 71 <130 mg/dL 01/31/2023 9:30 AM CDT [facility] Blood STRUCTURE OF LEFT UPPER LIMB / Unknown Venipuncture / Unknown 01/31/2023 8:54 AM CDT 01/31/2023 8:57 AM CDT Narrative [facility] - 01/31/2023 9:30 [...] Guevara NP LAB - BLOOD ORDERA BLES [facility] [address] 1[address] [place] [address] * (ABNORMAL) UA reflex to Microscopic and Culture (02/25/2022 9:55 PM PANTRY GOODS WORKER) Color Urine Yellow Colorless, Straw, Light Yellow, Yellow 02/25/2022 10:20 PM PANTRY GOODS WORKER [facility] Appearance Urine Clear Clear 02/26/20 10:20 PM PANTRY GOODS WORKER [facility] Glucose Urine 100(A) Negative mg/dL 02/25/2022 10:20 PM PANTRY GOODS WORKER [facility] Bilirubin Urine Negative Negative 10:20 PM PANTRY GOODS WORKER [facility] Ketones Urine 20(A) Negative mg/dL 02/25/2022 10:20 PM PANTRY GOODS WORKER [facility] Specific Mcguffey Urine 1.026 1.003 - 1.035 02/25/2022 10:20 PM PANTRY GOODS WORKER [facility] Blood Urine Negative Negative 02/25/2022 10:20 PM PANTRY GOODS WORKER [facility] pH Urine 5.0 5.0 - 7.0 02/25/2022 10:20 PM PANTRY GOODS WORKER [facility] Protein Albumin Urine 10(A) Negative mg/dL 02/25/2022 10:20 PM PANTRY GOODS WORKER [facility] Urobilinogen Urine Normal Normal, 2.0 mg/dL 02/25/2022 10:20 PM PANTRY GOODS WORKER [facility] Nitrite Urine Negative Negative 02/25/2022 10:20 PM PANTRY GOODS WORKER [facility] Leukocyte Esterase Urine Negative Negative 02/25/2022 10:20 PM PANTRY GOODS WORKER [facility] Mucus Urine Present(A) None Seen /LPF 02/25/2022 10:20 PM PANTRY GOODS WORKER [facility] RBC Urine <1 <=2 /HPF 02/25/2022 10:20 PM PANTRY GOODS WORKER [facility] WBC Urine 1 <=5 /HPF 02/25/2022 10:20 PM PANTRY GOODS WORKER [facility] Squamous Epithelials Urine <1 <=1 /HPF 02/25/2022 10:20 PM PANTRY GOODS WORKER [facility] Hyaline Casts Urine 4(H) <=2 /LPF 02/25/2022 10:20 PM PANTRY GOODS WORKER [facility] Urine URINE SPECIMEN OBTAINED BY CLEAN CATCH PROCEDURE / Unknown Non-blood Collection / Unknown 02/25/2022 9:55 PM PANTRY GOODS WORKER 02/25/2022 10:01 PM PANTRY GOODS WORKER Narrative [facility] - 02/25/2022 10:20 PM PANTRY GOODS WORKER Urine Culture not indicated Rubén Zambrano MD LAB - URINE ORDERABL ES [facility] [address] [facility], [address] [place] [address], [facility] [phone] * CT Abdomen Pelvis w/o Contrast (02/25/2022 12:10 AM PANTRY GOODS WORKER) Anatomical Region Laterality Modality Abdomen/Pelvis, SUBRAD CT MINA DY, UMP CT ABDOMEN PELVIS, RAD CT Computed Tomography Impressions 02/25/2022 8:18 AM PANTRY GOODS WORKER IMPRESSION: 1. 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 2. Colonic diverticulosis without evidence of acute diverticulitis. 3. No intra-abdominal findings to suggest etiology for patient's symptoms. I have personally reviewed the examination and initial interpretation and I agree with the findings. SEA WOOD MD Narrative 02/25/2022 8:18 AM PANTRY GOODS WORKER EXAMINATION: CT ABDOMEN PELVIS W/O CONTRAST, 02/25/2022 [...] lesions. Unremarkable spleen. No adrenal nodules. Atrophic hualapai kidneys with simple renal cyst in the [...] lesions. Unremarkable spleen. No adrenal nodules. Atrophic h[place]apai kidneys with simple renal cyst in the [...] agree with the findings. SEA WOOD MD Onyinyechukwu Marybeth Barry MD IMG CT OR DERABLES * (ABNORMAL) Hemoglobin A1c (02/24/2022 9:42 PM PANTRY GOODS WORKER) Hemoglobin A1C 5.7(H) <5.7 % 02/24/2022 11:58 PM PANTRY GOODS WORKER [facility] Comment: Normal <5.7% Prediabetes 5.7-6.4% ?? Diabetes 6.5% or higher Note: Adopted from ADA consensus guidelines. Blood STRUCTURE OF LEFT HAND / Unknown Venipuncture / Unknown 02/24/2022 9:42 PM PANTRY GOODS WORKER 02/24/2022 9:55 PM PANTRY GOODS WORKER Theresa Ayala APRN STOCK ASSOCIATE LAB - BLOOD OR DERABLES [facility] [address] [facility], [address] [place] [address], [facility] [phone] * CT Angiogram TAVR (01/13/2022 12:33 PM [...] aortic root calcification. 3. ??There are significant hualapai coronary calcifications. 4. ??The arch vessel branching pattern is normal. 5. ??The suprarenal abdominal aorta is moderately calcified; infrarenal abdominal aorta is severely calcified 6. ??Widely patent origins of celiac trunk, superior mesenteric artery and inferior mesenteric artery. ??Single bilateral renal arteries with widely patent origins. 7. ??There is no acute aortic pathology, such as dissection, intramural hematoma, or contained rupture. MEASUREMENTS: [employer] dimensions of the thoracoabdominal aorta are as [...] in a spiral gated mode with limited banmg-qf-sbtu followed by gated high pitch spiral CTA of the chest, abdomen, pelvis at 120 kVP to evaluate the thoracoabdominal aorta and iliac vasculature. Scan protocol was optimized to minimize radiation exposure. The total radiation exposure was 1817 DLP and 25.4 mSv. Images were reconstructed and analyzed on a [employer] Workstation. Procedure Note Praful Bowen MD - [...] in a spiral gated mode with limited ovtdz-lr-yrkv followed by gated high pitch spiral CTA of the chest, abdomen, pelvis at 120 kVP to evaluate the thoracoabdominal aorta and iliac vasculature. Scan protocol was optimized to minimize radiation exposure. The total radiation exposure was 1817 DLP and 25.4 mSv. Images were reconstructed and analyzed on a [employer] Workstation. IMPRESSION: 1. See below for TAVR [...] aortic root calcification. 3. There are significant [place]apai coronary calcifications. 4. The arch vessel branching pattern is normal. 5. The suprarenal abdominal aorta is moderately calcified; infrarenal abdominal aorta is severely calcified 6. Widely patent origins of celiac trunk, superior mesenteric artery and inferior mesenteric artery. Single bilateral renal arteries with widely patent origins. 7. There is no acute aortic pathology, such as dissection, intramural hematoma, or contained rupture. MEASUREMENTS: [employer] dimensions of the thoracoabdominal aorta are as [...] separately PRAFUL GORDON MD Deshawn Yael Guevara CORN DETASSELER MACHINE OPERATOR IMG CT ORDERABLES * Hepatitis C antibody (05/13/2020 8:50 AM PANTRY GOODS WORKER) Pathologist [facility] Hepatitis C Antibody (External) Negative Negative LABDE SCAN Blood specimen (specimen) 05/13/2020 8:50 AM PANTRY GOODS WORKER Narrative SAMANTHA PFTameka - 05/15/2020 7:27 AM PANTRY GOODS WORKER Verified by Cruzito Marlow on 05/15/2020. Patient Reported LAB - BLOOD ORDERABL ES SAMANTHA PFT LABDE SCAN * Albumin Random Urine Quantitative with Creat Ratio (05/17/2019 10:05 AM PANTRY GOODS WORKER) Microalbumin Urine (External) 1 mg/dl LABDE SCAN Creatinine Urine mg/dL (External) 106 mg/dl LABDE SCAN Microalbumin Urine mg/g Cr (External) 9 0 - 30 mg/g LABDE SCAN Urine specimen (specimen) 05/17/2019 10:05 AM PANTRY GOODS WORKER Narrative SAMANTHA KEMP - 05/23/2019 7:16 AM PANTRY GOODS WORKER Verified by Pedrito Stallworth on 05/23/2019. Patient Reported LAB - URINE ORDERABL ES SAMANTHA KEMP LABDE SCAN * COLONOSCOPY (03/31/2017 10:57 AM PANTRY GOODS WORKER) Pathologist [facility] COLONOSCOPY [address] [place] [id number] [phone] ? Endoscopy Department Patient Name: Lito Mora [...] of the exam. Signature of teaching physician [id number] Ballard MD Number of Addenda: 0 Note Initiated On: 03/31/2017 10:57 AM Scope In: Scope Out: RADIOLOGY RESULTS 03/31/2017 10:5 7 AM PANTRY GOODS WORKER Freddy Dumont MD PROCEDURES Performing Organization Address City/[facility] Co de Phone Number RADIOLOGY RESULTS * TSH (07/02/2016 3:42 PM CDT) TSH 0.95 0.40 - 4.00 mU/L [facility] Blood specimen (specimen) 07/02/2016 3:42 PM CDT 07/02/2016 4:14 PM CDT Angela Dias MD LAB - BLOOD ORDERAB LES Performing Organization Address [facility] Co de Phone Number 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/16 urine, 07/10/16 rectal swab 06/21/2016 06/21/2016 Advance Directives For more information, please contact: [phone] * Full Code (Latest Code Status on [...] Comments Code status determined by: Discussion with sosa hanson/ legal decision maker * Full Code Date Activated Date Inactivated Comments 11/16/2016 10:32 AM 01/22/2022 8:39 AM * Full Code Date Activated Date Inactivated Comments 11/15/2016 8:38 PM 11/16/2016 10:32 AM * Full Code Date Activated Date Inactivated Comments 10/15/2016 3:12 PM 11/15/2016 8:38 PM Care Teams Scullion Chief Relationship Specialty Start Date End Date Rubén Boyle MD PCP - General Family Practice 03/08/16 Pamela Blanco NP [facility] [address] [place] [address] Referring Physician 07/13/16 Pedro Segura MD [facility] [id number] [place] [id number] Nephrology 10/03/16 Freddy Craft MD [address] [place] [address] [address] [place], [place] [address] Assigned Gastroenterology Provider 02/08/20 Deshawn Guevara NP [address] [facility] [address] [place], [place] [address] Assigned Heart and Vascular Provider 01/09/22 Andressa Ruiz PA-C [address] [facility] [address] [place], [place] [address] Physician Wet Process Assistant Head Miller Endocrinology, Diabetes, and Metabolism 03/01/22 Suzan Harry MD [address] [place] [address] Nephrology 06/30/23 Yasmeen Powers MD [address] [place] [id number] Nephrology 10/24/23 Yasmeen Powers MD [address] [place] [address] Assigned Nephrology Provider 11/08/23
--- OUTSIDE RECORDS SUMMARY | 2024-01-26 22:26 | XMS_ITS | Encounter Summary ---
Author Organization [facility] Address [address] [place] [address] Care Team Providers Care Trainmaster Name Role Phone Rubén Boyle MD Primary Care Provider Pamela Blanco SURVEY MANAGER Unavailable Pedro Segura MD Unavailable [phone] Freddy Craft MD Unavailable Nicole Carranza SURVEY MANAGER Unavailable [phone] Andressa Ruiz-C Unavailable Suzan Harry MD Unavailable [phone] Yasmeen Powers MD Unavailable [phone] Yasmeen Powers MD Unavailable [phone] Reason for Visit * Reason Onset Date Comments Transplant 01/11/2024 Encounter Details Date Type Department Care Team (Late st Contact Info) Description 01/11/2024 Telephone [facility] [address] [place] [address] Felipa Raya, improvement leader Social History Tobacco Use Types Packs/Day Years [...] documented as of this encounter Care Teams Trainmaster Relationship Specialty Start Date End Date Rubén Boyle MD PCP - General Family Practice 03/08/16 Pamela Blanco SURVEY MANAGER [facility] [address] [place] [address] Referring Physician 07/13/16 Pedro Segura MD [facility] [address] [place] [address] Nephrology 10/03/16 Freddy Craft MD [address] [place] [address], [place] [address] Assigned Gastroenterology Provider 02/08/20 Nicole Carranza NP [address] [facility] [address] [place] [address] Assigned Heart and Vascular Provider 01/09/22 Andressa Ruiz PA-C 420 [facility] [address] [place] [address] Physician Tuft Machine Operator Endocrinology, Diabetes, and Metabolism 03/01/22 Suzan Harry MD [address] [place] [address] Nephrology 06/30/23 Yasmeen Powers MD [address] [place] [address] Nephrology 10/24/23 Yasmeen Powers MD [address] [place] [address] Assigned Nephrology Provider 11/08/23 documented as of this encounter
--- OUTSIDE RECORDS SUMMARY | 2024-01-26 22:26 | XMS_ITS | Encounter Summary ---
Author Organization [facility] Address [address] [place] [address] Care Team Providers Care Platform Software Engineer Name Role Phone Rubén Boyle MD Primary Care Provider Pamela Blanco ADMINISTRATIVE SUPPORT COORDINATOR Unavailable Pedro Segura MD Unavailable [phone] Freddy Craft MD Unavailable Nicole Carranza ADMINISTRATIVE SUPPORT COORDINATOR Unavailable [phone] Andressa Ruiz-C Unavailable Suzan Harry MD Unavailable [phone] Yasmeen Powers MD Unavailable [phone] Yasmeen Powers MD Unavailable [phone] Encounter Details Date Type Department Care Team (Late st Contact Info) Description 01/03/2024 MyC Medical Advice [facility] [address] [place] [address] Calli Hall, RN Social [...] documented as of this encounter Care Teams Platform Software Engineer Relationship Specialty Start Date End Date Rubén Boyle MD PCP - General Family Practice 03/08/16 Pamela Blanco NP [facility] [address] [place], [place] [address] Referring Physician 07/13/16 Pedro Segura MD [facility] [address] [place], [place] [address] Nephrology 10/03/16 Freddy Craft MD [address] [facility] [address] [place], [place] [address] Assigned Gastroenterology Provider 02/08/20 Nicole Carranza, [place] 420 [facility] [address] [place], [place] [address] Assigned Heart and Vascular Provider 01/09/22 Andressa Ruiz PA-C 420 [facility] [address] [place], [place] [address] Physician Airplane Designer Endocrinology, Diabetes, and Metabolism 03/01/22 Suzan Harry MD [address] [place] [address] Nephrology 06/30/23 Yasmeen Powers MD [address] [place] [address] Nephrology 10/24/23 Yasmeen Powers MD [address] [place] [address] Assigned Nephrology Provider 11/08/23 documented as of this encounter
--- OUTSIDE RECORDS SUMMARY | 2024-01-26 22:26 | XMS_ITS | Encounter Summary ---
Author Organization [facility] Address [address] [place] [address]. [place] [address] Care Team Providers Care Telephone Operator Name Role Phone Rubén Boyle MD Primary Care Provider [phone] Pamela Blanco PROMOTIONAL DEMONSTRATOR Unavailable Pedro Segura MD Unavailable Freddy Craft MD Unavailable Nicole Carranza PROMOTIONAL DEMONSTRATOR Unavailable [phone] Andressa Ruiz-C Unavailable Suzan Harry MD Unavailable [phone] Yasmeen Powers MD Unavailable [phone] Yasmeen Powers MD Unavailable Encounter Details Date Type Department Care Team (Late st Contact Info) Description 01/17/2024 Telephone [facility] Services - General Medicine & Pediatrics [address] [place] [address] Tha Olvera MD [address] [place] [address] Social History Tobacco Use Types Packs/Day Years [...] encounter Miscellaneous Notes * Telephone Encounter - Tha Olvera MD - 01/17/2024 9:25 PM CDT [facility] Transfer Triage Note Date of call: 01/17/24 Time of call: 9:25 PM Is pandemic COVID-19 a concern? NO Reason for transfer: Further diagnostic work up, management, and consultation for specialized care Diagnosis: Acute kidney injury Outside Records: Not available Additional records requested to be faxed to [phone]. Stability of Patient: Patient is vitally stable, with no critical labs, and will likely remain stable throughout the transfer process ICU: No We received a phone call through our Physician Access line from Dr. Black Landis at [facility]. My understanding from this phone call is that Lito Mora with 1950 is a 73 year old male with history of kidney and liver transplant in 2018 on immunosuppression with tacrolimus and azathioprine. Patient had a recent flu shot on 01/13. For the past 3 days patienthas had frequent diarrhea with loose brown watery stools, weakness, and 1 day of nausea and vomiting. Creatinine elevated to 4.4 from baseline 1.3-1.6, BUN 67. Patient received 2L NS IV fluid bolusesand started on maintenance fluids. CT abdomen without contrast was performed without acute findings. Request transfer to [facility] for transplant nephrology evaluation. Although patient is appropriate for transfer, no beds are currently available at [facility] plans on discussing with [facility] hospitalist team and possible transfer to [facility] in next 1-2 days if bed becomes available. Transfer Accepted? No - [facility] will call back to confirm transfer if needed Krunal Olvera MD [facility] Hospitalist 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, 07/10/16 rectal swab 06/21/2016 06/21/2016 documented as of this encounter Care Teams Telephone Operator Relationship Specialty Start Date End Date Rubén Boyle MD PCP - General Family Practice 03/08/16 Pamela Blanco NP [facility] [address] [place] [address] Referring Physician 07/13/16 Pedro Segura MD [facility] [address] [place], [place] [address] Nephrology 10/03/16 Freddy Craft MD [address] [facility] [place], [place] [address] Assigned Gastroenterology Provider 02/08/20 Nicole Carranza NP 420 [facility] 508 [place], [place] [address] Assigned Heart and Vascular Provider 01/09/22 Andressa Ruiz PA-C 420 [facility] 803 [place], [place] [address] Physician Accounting Intern Endocrinology, Diabetes, and Metabolism 03/01/22 Suzan Harry MD 420 [place], [place] [address] Nephrology 06/30/23 Yasmeen Powers MD 500 [place] [address] Nephrology 10/24/23 Yasmeen Powers MD 500 [place] [address] Assigned Nephrology Provider 11/08/23 documented as of this encounter
--- OUTSIDE RECORDS SUMMARY | 2024-01-26 22:27 | XMS_ITS | Encounter Summary ---
Author Organization [facility] Address [address] [place] [address] Care Team Providers Care Mechanical Engineering Technician Name Role Phone Rubén Boyle MD Primary Care Provider [phone] Pmaela Blanco DIVERSIFIED CROPS FARMWORKER Unavailable Pedro Segura MD Unavailable Freddy Craft MD Unavailable [phone] Abdifatah Van MD Unavailable Nicole Carranza DIVERSIFIED CROPS FARMWORKER Unavailable Andressa Ruiz-C Unavailable Suzan Harry MD Unavailable [phone] Yasmeen Powers MD Unavailable [phone] Yasmeen Powers MD Unavailable Encounter Details Date Type Department Care Team (Late st Contact Info) Description 09/30/2023 External Order Results [facility] [address] [place] [address] Outside, Provider Liver replaced by transplant (H) [...] Mass Spectrometry (09/30/2023 9:40 AM CDT) Pathologist [facility] Tacrolimus(FK-5 06) (External) 3.0 ng/mL NON-INTERFACE D (ONBASE SCANS) Blood BLOOD SPECIMEN / Unknown 09/30/2023 9:40 AM CDT Narrative SAMANTHA PFT - 10/03/2023 12:33 PM CDT Verified by Rhiannon Cain on 10/03/2023. Freddy Dumont MD LAB - BLOOD ORD ERABLES SAMANTHA PFT NON-INTERFACED (ONBASE SCANS) * (ABNORMAL) Manual Differential (09/30/2023 9:40 AM CDT) Pathologist [facility] % Neutrophils (External) 54.1 42.0 - 72.0 [...] documented as of this encounter Care Teams Mechanical Engineering Technician Relationship Specialty Start Date End Date Rubén Boyle MD PCP - General Family Practice 03/08/16 Pamela Blanco DIVERSIFIED CROPS FARMWORKER [facility] [address] [place], [place] [address] Referring Physician 07/13/16 Pedro Segura MD [facility] [address] [place], [place] [address] Nephrology 10/03/16 Freddy Craft MD 516 [facility] 2A [place], [place] [address] Assigned Gastroenterology Provider 02/08/20 Abdifatah Van MD 717 [facility] [address] [place], [place] [address] Assigned Nephrology Provider 07/13/20 11/07/23 Nicole Carranza NP [address] [place] [address] 508 [place] [address] Assigned Heart and Vascular Provider 01/09/22 Andressa Ruiz PA-C 420 [facility] 803 [place] [address] Physician Building Maintenance Mechanic Endocrinology, Diabetes, and Metabolism 03/01/22 Suzan Harry MD [address] [place] [address] Nephrology 06/30/23 Yasmeen Powers MD 500 [place] [address] Nephrology 10/24/23 Yasmeen Powers MD 500 [place] [address] Assigned Nephrology Provider 11/08/23 documented as of this encounter
--- OUTSIDE RECORDS SUMMARY | 2024-01-26 22:27 | XMS_ITS | Encounter Summary ---
Author Organization [facility] Address [address] [place] [address] Care Team Providers Care Bilingual Patient Support Caseworker Name Role Phone Rubén Boyle MD Primary Care Provider Pamela Blanco OCEANOGRAPHY TEACHER Unavailable [phone] Pedro Segura MD Unavailable [phone] Freddy Craft MD Unavailable [phone] Abdifatah Van MD Unavailable Nicole Carranza OCEANOGRAPHY TEACHER Unavailable Andressa RuizC Unavailable Rubén Gunter [facility] Unavailable Andressa Ruiz-C Unavailable Suzan Harry MD Unavailable [phone] Yasmeen Powers MD Unavailable Yasmeen Powers MD Unavailable [phone] Encounter Details Date Type Department Care Team (Late st Contact Info) Description 04/20/2023 External Order Results [facility] [address] [place] [address] Outside, Provider Social History Tobacco Use Types [...] TANDEM MASS SPECTROMETRY Routine 04/20/2023 10:05 AM ELECTRICAL AND ELECTRONIC ASSEMBLER documented in this encounter Results * Tacrolimus by Tandem Mass Spectrometry (04/20/2023 10:05 AM ELECTRICAL AND ELECTRONIC ASSEMBLER) Tacrolimus(FK-5 06) (External) 9.0 5.0 - 15.0 ng/mL NON-INTERFACED (ONBASE SCANS) Blood BLOOD SPECIMEN / Unknown 04/20/2023 10:05 AM ELECTRICAL AND ELECTRONIC ASSEMBLER Narrative SAMANTHA PFT - 04/25/2023 9:44 AM ELECTRICAL AND ELECTRONIC ASSEMBLER Verified by Pedrito Stallworth on 04/25/2023. 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 06/21/2016 06/21/2016 documented as of this encounter Care Teams Bilingual Patient Support Caseworker Relationship Specialty Start Date End Date Rubén Boyle MD PCP - General Family Practice 03/08/16 Pamela Blanco NP [facility] [address] [place] [address] Referring Physician 07/13/16 Pedro Segura MD [facility] [address] [place] [address] Nephrology 10/03/16 Freddy Craft MD 516 [facility] 2[facility] [place], [place] [address] Assigned Gastroenterology Provider 02/08/20 Abdifatah Van MD 717 [facility] [address] [place] [address] Assigned Nephrology Provider 07/13/20 11/07/23 Nicole Carranza NP 420 [facility] 508 [place], [place] [address] Assigned Heart and Vascular Provider 01/09/22 Andressa Ruiz PA-C 420 [facility] 803 [place], [place] [address] Physician Survey Research Manager Endocrinology, Diabetes, and Metabolism 03/01/22 Rubén Gunter [facility] 909 [place], [place] [address] Assigned MTM Pharmacist 02/27/22 Andressa Ruiz PA-C 420 [facility] 803 [place], [place] [address] Assigned Endocrinology Provider 03/13/22 09/07/23 Suzan Harry MD 420 [place], [place] [address] Nephrology 06/30/23 Yasmeen Powers MD 500 [place], [place] [address] Nephrology 10/24/23 Yasmeen Powers MD 500 [place], [place] [address]555 Assigned Nephrology Provider 11/08/23 documented as of this encounter
--- OUTSIDE RECORDS SUMMARY | 2024-01-26 22:27 | XMS_ITS | Encounter Summary ---
Author Organization [facility] Address [address] [place] [address] Care Team Providers Care Health Lead Name Role Phone Rubén Boyle MD Primary Care Provider [phone] Pamela Blanco ACTUARY CLERK Unavailable Pedro Segura MD Unavailable Freddy Craft MD Unavailable Abdifatah Van MD Unavailable Nicole Carranza ACTUARY CLERK Unavailable Andressa Ruiz PA-C Unavailable Suzan Harry MD Unavailable [phone] Yasmeen Powers MD Unavailable [phone] Yasmeen Powers MD Unavailable Encounter Details Date Type Department Care Team (Late st Contact Info) Description 09/29/2023 MyC Medical Advice [facility] 9 [place] [address] Lashanda Hsieh, [facility] Social History Tobacco Use Types [...] as of this encounter Care Teams Health Lead Relationship Specialty Start Date End Date Rubén Boyle MD PCP - General Family Practice 03/08/16 Pamela Blanco NP [facility] [address] [place], [place] [address] Referring Physician 07/13/16 Pedro Segura MD [facility] [address] [place], [place] [address] Nephrology 10/03/16 Freddy Craft MD 516 [facility] [place] [address] Assigned Gastroenterology Provider 02/08/20 Abdifatah Van MD 717 [facility] [address] [place] [address] Assigned Nephrology Provider 07/13/20 11/07/23 Nicole Carranza NP 420 [facility] [address] [place] [address] Assigned Heart and Vascular Provider 01/09/22 Andressa Ruiz PA-C 420 [facility] 803 [place] [address] Physician Filling Separator Endocrinology, Diabetes, and Metabolism 03/01/22 Suzan Harry MD 420 [place] [address] Nephrology 06/30/23 Yasmeen Powers MD 500 [place] [address] Nephrology 10/24/23 Yasmeen Powers MD 500 [place] [address] Assigned Nephrology Provider 11/08/23 documented as of this encounter
--- OUTSIDE RECORDS SUMMARY | 2024-01-26 22:27 | XMS_ITS | Encounter Summary ---
Author Organization [facility] Address [address] [place] [address]. [place] [address] Care Team Providers Care Screw Machine Adjuster Automatic Name Role Phone Rubén Boyle MD Primary Care Provider Pamela Blanco TECHNOLOGY SALES REPRESENTATIVE Unavailable Pedro Segura MD Unavailable Freddy Craft MD Unavailable Nicole Carranza TECHNOLOGY SALES REPRESENTATIVE Unavailable Andressa Ruiz PA-C Unavailable [phone] Suzan Harry MD Unavailable [phone] Yasmeen Powers MD Unavailable Yasmeen Powers MD Unavailable [phone] Encounter Details Date Type Department Care Team (Late st Contact Info) Description 11/18/2023 Orders Only [facility] 909 [place] [address] Freddy Craft MD 6 [facility] 2A [place] [address] Liver replaced by transplant (H) [...] documented as of this encounter Care Teams Screw Machine Adjuster Automatic Relationship Specialty Start Date End Date Rubén Boyle MD PCP - General Family Practice 03/08/16 Pamela Blanco TECHNOLOGY SALES REPRESENTATIVE [facility] [address] [place], [place] [address] Referring Physician 07/13/16 Pedro Segura MD [facility] [address] [place], [place] [address] Nephrology 10/03/16 Freddy Craft MD 516 [facility] [address] [place], [place] [address] Assigned Gastroenterology Provider 02/08/20 Nicole Carranza NP 420 [facility] [address] [place], [place] [address] Assigned Heart and Vascular Provider 01/09/22 Andressa Ruiz PA-C 420 [facility] [address] [place], [place] [address] Physician Honing Machine Operator Semiautomatic Endocrinology, Diabetes, and Metabolism 03/01/22 Suzan Harry MD 420 [place], [place] [address] Nephrology 06/30/23 Yasmeen Powers MD 500 [place], [place] [address] Nephrology 10/24/23 Yasmeen Powers MD 500 [place] [address] Assigned Nephrology Provider 11/08/23 documented as of this encounter
--- OUTSIDE RECORDS SUMMARY | 2024-01-26 22:27 | XMS_ITS | Encounter Summary ---
Author Organization [facility] [place] Address [address] [place] [address] Care Team Providers Care Line Welder Name Role Phone Rubén Boyle MD Primary Care Provider Pamela Blanco PETROLEUM GEOLOGIST Unavailable Pedro Segura MD Unavailable Freddy Craft MD Unavailable Abdifatah Van MD Unavailable Nicole Carranza PETROLEUM GEOLOGIST Unavailable Andressa RuizC Unavailable Rubén Gunter [facility] Unavailable Andressa Ruiz-C Unavailable [phone] Suzan Harry MD Unavailable [phone] Yasmeen Powers MD Unavailable Yasmeen Powers MD Unavailable [phone] Encounter Details Date Type Department Care Team (Late st Contact Info) Description 04/05/2023 External Order Results [facility] [address] [place] [address] Outside, Provider Liver replaced by transplant (H) [...] TANDEM MASS SPECTROMETRY Routine 04/05/2023 12:30 PM DIRECTOR OF CASEWORK DEPARTMENT Liver replaced by transplant (H) MAGNESIUM Routine 04/05/2023 12:30 PM DIRECTOR OF CASEWORK DEPARTMENT HEPATIC FUNCTION PANEL Routine 04/05/2023 12:30 PM DIRECTOR OF CASEWORK DEPARTMENT Liver replaced by transplant (H) DIFFERENTIAL Routine 04/05/2023 12:30 PM DIRECTOR OF CASEWORK DEPARTMENT BASIC METABOLIC PANEL Routine 04/05/2023 12:30 PM DIRECTOR OF CASEWORK DEPARTMENT Liver replaced by transplant (H) CBC WITH PLATELETS Routine 04/05/2023 12 :30 PM DIRECTOR OF CASEWORK DEPARTMENT Liver replaced by transplant (H) documented in this encounter Results * Tacrolimus by Tandem Mass Spectrometry (04/05/2023 12:30 PM DIRECTOR OF CASEWORK DEPARTMENT) Tacrolimus(FK-5 06) (External) 9.3 5.0 - 15.0 ng/mL NON-INTERFACED (ONBASE SCANS) Blood BLOOD SPECIMEN / Unknown 04/05/2023 12:30 PM DIRECTOR OF CASEWORK DEPARTMENT Narrative SAMANTHA PFT - 04/12/2023 12:23 PM DIRECTOR OF CASEWORK DEPARTMENT Verified by Cruzito Marlow on 04/12/2023. Freddy Dumont MD LAB - BLOOD ORD ERABLES SAMANTHA PFT NON-INTERFACED (ONBASE SCANS) * (ABNORMAL) Magnesium (04/05/2023 12:30 PM DIRECTOR OF CASEWORK DEPARTMENT) Pathologist [facility] Magnesium (External) 1.3(L) 1.5 - 2.6 mg/dL NON-INTERFACED (ONBASE SCANS) Blood BLOOD SPECIMEN / Unknown 04/05/2023 12:30 PM DIRECTOR OF CASEWORK DEPARTMENT Narrative SAMANTHA PFT - 04/07/2023 6:34 AM DIRECTOR OF CASEWORK DEPARTMENT Verified by Yamil Santo on 04/07/2023. Freddy Dumont MD LAB - BLOOD ORD ERABLES SAMANTHA PFT NON-INTERFACED (ONBASE SCANS) * (ABNORMAL) Manual Differential (04/05/2023 12:30 PM DIRECTOR OF CASEWORK DEPARTMENT) Pathologist [facility] % Neutrophils (External) 51.5 42.0 - [...] BLOOD SPECIMEN / Unknown 04/05/2023 12:30 PM DIRECTOR OF CASEWORK DEPARTMENT Narrative BREEZE PFT - 04/07/2023 6:34 AM DIRECTOR OF CASEWORK DEPARTMENT Verified by Yamil Santo on 04/07/2023. Freddy Dumont MD LAB - BLOOD ORD ERABLES AMNAE PFT NON-INTERFACED (ONBASE SCANS) * Hepatic panel (04/05/2023 12:30 PM DIRECTOR OF CASEWORK DEPARTMENT) Protein Total (External) 6.3 6.0 - 8.3 [...] BLOOD SPECIMEN / Unknown 04/05/2023 12:30 PM DIRECTOR OF CASEWORK DEPARTMENT Narrative AMNAE PFT - 04/07/2023 6:33 AM DIRECTOR OF CASEWORK DEPARTMENT Verified by Yamil Santo on 04/07/2023. Freddy Dumont MD LAB - BLOOD ORD ERABLES SAMANTHA PFT NON-INTERFACED (ONBASE SCANS) * (ABNORMAL) CBC with platelets (04/05/2023 12:30 PM DIRECTOR OF CASEWORK DEPARTMENT) WBC Count (External) 3.15(L) 4.50 - 11.00 [...] BLOOD SPECIMEN / Unknown 04/05/2023 12:30 PM DIRECTOR OF CASEWORK DEPARTMENT Narrative SAMANTHA PFT - 04/07/2023 6:33 AM DIRECTOR OF CASEWORK DEPARTMENT Verified by Yamil Santo on 04/07/2023. Freddy Dumont MD LAB - BLOOD ORD ERABLES SAMANTHA PFT NON-INTERFACED (ONBASE SCANS) * (ABNORMAL) Basic metabolic panel (04/05/2023 12:30 PM DIRECTOR OF CASEWORK DEPARTMENT) Sodium (External) 139 135 - 149 mmol/L [...] BLOOD SPECIMEN / Unknown 04/05/2023 12:30 PM DIRECTOR OF CASEWORK DEPARTMENT Narrative SAMANTHA PFT - 04/07/2023 6:29 AM DIRECTOR OF CASEWORK DEPARTMENT Verified by Yamil Santo on 04/07/2023. Freddy [...] documented as of this encounter Care Teams Line Welder Relationship Specialty Start Date End Date Rubén Boyle MD PCP - General Family Practice 03/08/16 Pamela Blanco, PETROLEUM GEOLOGIST [facility] [address] [place], [place] [address] Referring Physician 07/13/16 Pedro Segura MD [facility] [address] [place], [place] [address] Nephrology 10/03/16 Freddy Craft MD 516 [facility] 2A [place], [place] [address] Assigned Gastroenterology Provider 02/08/20 Abdifatah Van MD [address] [place] [address] [address] [place] [address] Assigned Nephrology Provider 07/13/20 11/07/23 Nicole Carranza NP 420 [facility] 508 [place] [address] Assigned Heart and Vascular Provider 01/09/22 Andressa Ruiz PA-C 420 [facility] 803 [place] [address] Physician Registered Nurse Maternal Child Endocrinology, Diabetes, and Metabolism 03/01/22 Rubén Gunter [facility] [address] [place] [address] Assigned MTM Pharmacist 02/27/22 Andressa Ruiz PA-C 420 [facility] 803 [place] [address] Assigned Endocrinology Provider 03/13/22 09/07/23 Suzan Harry MD 420 [place] [address] Nephrology 06/30/23 Yasmeen Powers MD 500 [place] [address] Nephrology 10/24/23 Yasmeen Powers MD 500 [place] [address] Assigned Nephrology Provider 11/08/23 documented as of this encounter
--- OUTSIDE RECORDS SUMMARY | 2024-01-26 22:27 | XMS_ITS | Encounter Summary ---
Author Organization [facility] Address [address] [place] [address] Care Team Providers Care Graphic Editor Name Role Phone Rubén Boyle MD Primary Care Provider [phone] Pamela Blanco PHYSICIAN ASSISTANT CERTIFIED Unavailable Pedro Segura MD Unavailable Freddy Craft MD Unavailable Abdifatah Van MD Unavailable Nicole Craranza PHYSICIAN ASSISTANT CERTIFIED Unavailable Andressa Ruiz-C Unavailable Rubén Gunter [facility] Unavailable Andressa Ruiz-C Unavailable [phone] Suzan Harry MD Unavailable [phone] Yasmeen Powers MD Unavailable [phone] Yasmeen Powers MD Unavailable [phone] Encounter Details Date Type Department Care Team (Late st Contact Info) Description 08/22/2023 MyC Medical Advice [facility] [address] [place] [address] Calli Hall, RN Social History [...] documented as of this encounter Care Teams Graphic Editor Relationship Specialty Start Date End Date Rubén Boyle MD PCP - General Family Practice 03/08/16 Pamela Blanco NP [facility] [address] [place], [place] [address] Referring Physician 07/13/16 Pedro Segura MD [facility] [address] [place], [place] [address] Nephrology 10/03/16 Freddy Craft MD 516 [facility] [address] [place], [place] [address] Assigned Gastroenterology Provider 02/08/20 Abdifatah Van MD 717 [facility] [address] [place], [place] [address] Assigned Nephrology Provider 07/13/20 11/07/23 Nicole Carranza NP 420 [facility] 508 [place] [address] Assigned Heart and Vascular Provider 01/09/22 Andressa Ruiz PA-C 420 [facility] 803 [place] [address] Physician Environmental Emergencies Assistant Endocrinology, Diabetes, and Metabolism 03/01/22 Rubén Gunter [facility] [address] [place] [address] Assigned MTM Pharmacist 02/27/22 Andressa Ruiz PA-C 420 [facility] 803 [place] [address] Assigned Endocrinology Provider 03/13/22 09/07/23 Suzan Harry MD 420 [place] [address] Nephrology 06/30/23 Yasmeen Powers MD 500 [place] [address] Nephrology 10/24/23 Yasmeen Powers MD 500 [place] [address] Assigned Nephrology Provider 11/08/23 documented as of this encounter
--- OUTSIDE RECORDS SUMMARY | 2024-01-26 22:27 | XMS_ITS | Encounter Summary ---
Author Organization [facility] Address [address] [place] [address] Care Team Providers Care Account Review Specialist Name Role Phone Rubén Boyle MD Primary Care Provider [phone] Pamela Blanco CAR INSPECTION AND REPAIR MANAGER Unavailable Pedro Segura MD Unavailable Freddy Craft MD Unavailable [phone] Abdifatah Van MD Unavailable Nicole Carranza CAR INSPECTION AND REPAIR MANAGER Unavailable [phone] Andressa Ruiz PA-C Unavailable Suzan Harry MD Unavailable [phone] Yasmeen Powers MD Unavailable [phone] Reason for Visit * Reason Onset Date Comments update 09/16/2023 Encounter Details Date Type Department Care Team (Late st Contact Info) Description 09/16/2023 Telephone [facility] [address] [place] [address] Chela Meng, RN update Social [...] AM CDT Patient Call: General Route to AEROBICS INSTRUCTOR Reason for call: Ileana Pharmacist from [facility] calling regarding patient's Tacrolimus level, she stated [...] as of this encounter Care Teams Account Review Specialist Relationship Specialty Start Date End Date Rubén Boyle MD PCP - General Family Practice 03/08/16 Pamela Blanco NP [facility] [address] [place] [address] Referring Physician 07/13/16 Pedro Segura MD [facility] [address] [place], [place] [address] Nephrology 10/03/16 Freddy Craft MD [address] [place] [address] Assigned Gastroenterology Provider 02/08/20 Abdifatah Van MD 717 [facility] [address] [place] [address] Assigned Nephrology Provider 07/13/20 11/07/23 Nicole Carranza NP 420 [facility] [address] [place] [address] Assigned Heart and Vascular Provider 01/09/22 Andressa Ruiz PA-C 420 [facility] 803 [place] [address] Physician Entry Level Java Developer Endocrinology, Diabetes, and Metabolism 03/01/22 Suzan Harry MD 420 [place], [place] [address] Nephrology 06/30/23 Yasmeen Powers MD 500 [place] [address] Nephrology 10/24/23 documented as of this encounter
--- OUTSIDE RECORDS SUMMARY | 2024-01-26 22:27 | XMS_ITS | Encounter Summary ---
Author Organization [facility] Address [address] [place] [address] Care Team Providers Care Volunteer Specialist Name Role Phone Rubén Boyle MD Primary Care Provider Pamela Blanco HORSES OR MULES TEAMSTER Unavailable [phone] Pedro Segura MD Unavailable Freddy Craft MD Unavailable Abdifatah Van MD Unavailable Nicole Carranza HORSES OR MULES TEAMSTER Unavailable Andressa RuizC Unavailable Rubén Gunter [facility] Unavailable Andressa Ruiz-C Unavailable Suzan Harry MD Unavailable [phone] Yasmeen Powers MD Unavailable Yasmeen Powers MD Unavailable [phone] Encounter Details Date Type Department Care Team (Late st Contact Info) Description 06/28/2023 External Order Results [facility] [address] [place] [address] Outside, Provider Social History Tobacco Use Types [...] documented as of this encounter Care Teams Volunteer Specialist Relationship Specialty Start Date End Date Rubén Boyle MD PCP - General Family Practice 03/08/16 Pamela Blanco NP [facility] [address] [place], [place] [id number] Referring Physician 07/13/16 Pedro Segura MD [facility] [address] [place], [place] [address] Nephrology 10/03/16 Freddy Craft MD 516 [facility] [place] [address] Assigned Gastroenterology Provider 02/08/20 Abdifatah Van MD [address] [facility] [address] [place] [address] Assigned Nephrology Provider 07/13/20 11/07/23 Nicole Carranza NP 420 [facility] 508 [place] [address] Assigned Heart and Vascular Provider 01/09/22 Andressa Ruiz PA-C 420 [facility] MMC 803 [place] [address] Physician Well Logging Captain Mud Analysis Endocrinology, Diabetes, and Metabolism 03/01/22 Rubén Gunter [facility] 909 [place] [address] Assigned MTM Pharmacist 02/27/22 Andressa Ruiz PA-C 420 [facility] 803 [place] [address] Assigned Endocrinology Provider 03/13/22 09/07/23 Suzan Harry MD 420 [place] [address] Nephrology 06/30/23 Yasmeen Powers MD 500 [place] [address] Nephrology 10/24/23 Yasmeen Powers MD 500 [place] [address] Assigned Nephrology Provider 11/08/23 documented as of this encounter
--- OUTSIDE RECORDS SUMMARY | 2024-01-26 22:27 | XMS_ITS | Encounter Summary ---
Author Organization [facility] Address [address] [place] [address] Care Team Providers Care Clinical Faculty Name Role Phone Rubén Boyle MD Primary Care Provider Pamela Blanco CAFETERIA MANAGER Unavailable Pedro Segura MD Unavailable [phone] Freddy Craft MD Unavailable Abdifatah Van MD Unavailable Nicole Carranza CAFETERIA MANAGER Unavailable Andressa RuizC Unavailable Rubén Gunter [facility] Unavailable Andressa Ruiz-C Unavailable Suzan Harry MD Unavailable [phone] Yasmeen Powers MD Unavailable Yasmeen Powers MD Unavailable [phone] Encounter Details Date Type Department Care Team (Late st Contact Info) Description 02/22/2023 MyC Medical Advice [facility] [address] 4th [place] [address] Jessica Dillon Social History Tobacco [...] as of this encounter Care Teams Clinical Faculty Relationship Specialty Start Date End Date Rubén Boyle MD PCP - General Family Practice 03/08/16 Pamela Blanco NP [facility] [address] [place] [address] Referring Physician 07/13/16 Pedro Segura MD [facility] [address] [place], [place] 325787 Nephrology 10/03/16 Freddy Craft MD 516 [facility] [address]A [place], [place] [address] Assigned Gastroenterology Provider 02/08/20 Abdifatah Van MD [address] [facility] [address] [place], [place] [address] Assigned Nephrology Provider 07/13/20 11/07/23 Nicole Carranza NP 420 [facility] 508 [place] [address] Assigned Heart and Vascular Provider 01/09/22 Andressa Ruiz PA-C 420 [facility] 803 [place] [address] Physician Jacquard Loom Weaver Endocrinology, Diabetes, and Metabolism 03/01/22 Rubén Gunter [facility] [address] [place] [address] 238435 Assigned MTM Pharmacist 02/27/22 Andressa Ruiz PA-C 420 [facility] 803 [place], [place] 715945 Assigned Endocrinology Provider 03/13/22 09/07/23 Suzan Harry MD 420 [place] [address] Nephrology 06/30/23 Yasmeen Powers MD 500 [place] [address] Nephrology 10/24/23 Yasmeen Powers MD 500 [place] [address] Assigned Nephrology Provider 11/08/23 documented as of this encounter
--- OUTSIDE RECORDS SUMMARY | 2024-01-26 22:27 | XMS_ITS | Encounter Summary ---
Author Organization [facility] Address [address] [place] [address] Care Team Providers Care Data Analyst Etl Developer Name Role Phone Rubén Boyle MD Primary Care Provider Pamela Blnaco FITNESS MANAGER Unavailable Pedro Segura MD Unavailable [phone] Freddy Craft MD Unavailable Nicole Carranza FITNESS MANAGER Unavailable [phone] Andressa Ruiz-C Unavailable Suzan Harry MD Unavailable [phone] Yasmeen Powers MD Unavailable [phone] Yasmeen Powers MD Unavailable [phone] Encounter Details Date Type Department Care Team (Late st Contact Info) Description 12/13/2023 External Order Results [facility] [address] [place] [address] Outside, Provider Liver replaced by transplant (H) [...] documented as of this encounter Care Teams Data Analyst Etl Developer Relationship Specialty Start Date End Date Rubén Boyle MD PCP - General Family Practice 03/08/16 Pamela Blanco FITNESS MANAGER [facility] [address] [place] [address] Referring Physician 07/13/16 Pedro Segura MD [facility] [address] [place] [address] Nephrology 10/03/16 Freddy Craft MD 516 [facility] 2A [place] [address] Assigned Gastroenterology Provider 02/08/20 Nicole Carranza NP 420 [facility] 508 [place] [address] Assigned Heart and Vascular Provider 01/09/22 Andressa Ruiz PA-C 420 [facility] 803 [place] [address] Physician Sling Operator Endocrinology, Diabetes, and Metabolism 03/01/22 Suzan Harry MD 420 [place], [place] 18[address]35 Nephrology 06/30/23 Yasmeen Powers MD 500 [place] [address] Nephrology 10/24/23 Yasmeen Powers MD 500 [place] [address] Assigned Nephrology Provider 11/08/23 documented as of this encounter
--- OUTSIDE RECORDS SUMMARY | 2024-01-26 22:27 | XMS_ITS | Encounter Summary ---
Author Organization [place] Address [address] [place] [address] Care Team Providers Care Cable Worker Helper Name Role Phone Rubén Boyle MD Primary Care Provider Pamela Blanco COMPANION CAREGIVER Unavailable Pedro Segura MD Unavailable Freddy Craft MD Unavailable [phone] Abdifatah Van MD Unavailable Nicole Carranza COMPANION CAREGIVER Unavailable [phone] Andressa Ruiz PA-C Unavailable Suzan Harry MD Unavailable [phone] Reason for Visit * Reason Onset Date Comments Prior Auth - Medication 10/18/2023 Azathiop rine 50 mg PA Not Needed Encounter Details Date Type Department Care Team (Late st Contact Info) Description 10/18/2023 Telephone [facility] Blood and Marrow Transplant Program [address] [address] Mónica Suarez Prior Auth - [...] documented as of this encounter Care Teams Cable Worker Helper Relationship Specialty Start Date End Date Rubén Boyle MD PCP - General Family Practice 03/08/16 Pamela Blanco NP [facility] [address] [place] [address] Referring Physician 07/13/16 Pedro Segura MD [facility] [address] [place] [address] Nephrology 10/03/16 Freddy Craft MD 516 [facility] [address] [place] [address] Assigned Gastroenterology Provider 02/08/20 Abdifatah Van MD 717 [facility] [address] [place] [address] Assigned Nephrology Provider 07/13/20 11/07/23 Nicole Carranza NP 420 [facility] 508 [place] [address] Assigned Heart and Vascular Provider 01/09/22 Andressa Ruiz PA-C 420 [facility] 803 [place], [place] 333215 Physician Marketing/Sales Person Endocrinology, Diabetes, and Metabolism 03/01/22 Suzan Harry MD 420 [place], [place] 298105 Nephrology 06/30/23 documented as of this encounter
--- OUTSIDE RECORDS SUMMARY | 2024-01-26 22:27 | XMS_ITS | Encounter Summary ---
Author Organization [facility] Address [address] [place] [address] Care Team Providers Care Signal Manager Name Role Phone Rubén Boyle MD Primary Care Provider Pamela Blanco CONSTRUCTION MANAGEMENT INSTRUCTOR Unavailable Pedro Segura MD Unavailable [phone] Freddy Craft MD Unavailable Abdifatah Van MD Unavailable Nicole Carranza CONSTRUCTION MANAGEMENT INSTRUCTOR Unavailable Andressa RuizC Unavailable Rubén Gunter [facility] Unavailable Andressa Ruiz-C Unavailable Suzan Harry MD Unavailable [phone] Yasmeen Powers MD Unavailable [phone] Yasmeen Powers MD Unavailable [phone] Encounter Details Date Type Department Care Team (Late st Contact Info) Description 04/20/2023 External Order Results [facility] [address] [place] [address] Outside, Provider 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 [...] documented as of this encounter Care Teams Signal Manager Relationship Specialty Start Date End Date Rubén Boyle MD PCP - General Family Practice 03/08/16 Pamela Blanco NP [facility] [address] [place], [place] 351247 Referring Physician 07/13/16 Pedro Segura MD [facility] [address] [place], [place] 488497 Nephrology 10/03/16 Freddy Craft MD 516 [facility] 2A [place], [place] 680935 Assigned Gastroenterology Provider 02/08/20 Abdifatah Van MD [address] [facility] [address] [place] [address] Assigned Nephrology Provider 07/13/20 11/07/23 Nicole Carranza NP 420 [facility] 508 [place], [place] 427365 Assigned Heart and Vascular Provider 01/09/22 Andressa Ruiz PA-C 420 [facility] 803 [place] [address] Physician Counterintelligence Agent Endocrinology, Diabetes, and Metabolism 03/01/22 Rubén Gunter [facility] 909 [place] [address] Assigned MTM Pharmacist 02/27/22 Andressa Ruiz PA-C 420 [facility] 803 [place] [address] Assigned Endocrinology Provider 03/13/22 09/07/23 Suzan Harry MD 420 [place] [address] Nephrology 06/30/23 Yasmeen Powers MD 500 [place] [address] Nephrology 10/24/23 Yasmeen Powers MD 500 [place] [address] Assigned Nephrology Provider 11/08/23 documented as of this encounter
--- OUTSIDE RECORDS SUMMARY | 2024-01-26 22:27 | XMS_ITS | Encounter Summary ---
Author Organization [facility] Address [address] [place] [address] Care Team Providers Care Community Health Educator Name Role Phone Rubén Boyle MD Primary Care Provider Pamela Blanco MEAT SCRUBBER Unavailable Pedro Segura MD Unavailable [phone] Freddy Craft MD Unavailable [phone] Abdifatah Van MD Unavailable Nicole Carranza MEAT SCRUBBER Unavailable Andressa RuizC Unavailable Rubén Gunter [facility] Unavailable Andressa Ruiz-C Unavailable [phone] Suzan Harry MD Unavailable [phone] Yasmeen Powers MD Unavailable Yasmeen Powers MD Unavailable [phone] Encounter Details Date Type Department Care Team (Late st Contact Info) Description 04/07/2023 External Order Results [facility] [address] [place] [address] Outside, Provider 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 Freddy [...] documented as of this encounter Care Teams Community Health Educator Relationship Specialty Start Date End Date Rubén Boyle MD PCP - General Family Practice 03/08/16 Pamela Blanco, MEAT SCRUBBER [facility] [address] [place], [place] 707677 Referring Physician 07/13/16 Pedro Segura MD [facility] [address] [place], [place] 263997 Nephrology 10/03/16 Freddy Craft MD 516 [facility] [place], [place] 414175 Assigned Gastroenterology Provider 02/08/20 Abdifatah Van MD [address] [facility] [address] [place], [place] 709544 Assigned Nephrology Provider 07/13/20 11/07/23 Nicole Carranza NP 420 [facility] MMC 508 [place], [place] 837975 Assigned Heart and Vascular Provider 01/09/22 Andressa Ruiz PA-C 420 [facility] 803 [place] [address] Physician Critical Care Rn Endocrinology, Diabetes, and Metabolism 03/01/22 Rubén Gunter [facility] [address] [place] [address] Assigned MTM Pharmacist 02/27/22 Andressa Ruiz PA-C 420 [facility] 803 [place] [address] Assigned Endocrinology Provider 03/13/22 09/07/23 Suzan Harry MD 420 [place] [address] Nephrology 06/30/23 Yasmeen Powers MD 500 [place] [address] Nephrology 10/24/23 Yasmeen Powers MD 500 [place] [address] Assigned Nephrology Provider 11/08/23 documented as of this encounter
--- OUTSIDE RECORDS SUMMARY | 2024-01-26 22:27 | XMS_ITS | Encounter Summary ---
Author Organization [place] Address [address] [place] [address] Care Team Providers Care Manager Nicu Name Role Phone Rubén Boyle MD Primary Care Provider [phone] Pamela Blanco PHOTOGRAPHIC ARTIST Unavailable Pedro Segura MD Unavailable Freddy Craft MD Unavailable Abdifatah Van MD Unavailable Nicole Carranza PHOTOGRAPHIC ARTIST Unavailable Andressa RuizC Unavailable Rubén Gunter [facility] Unavailable Andressa Ruiz-C Unavailable Suzan Harry MD Unavailable Yasmeen Powers MD Unavailable Yasmeen Powers MD Unavailable [phone] Encounter Details Date Type Department Care Team (Late st Contact Info) Description 04/06/2023 External Order Results [facility] [address] [place] [address] Outside, Provider Liver replaced by transplant (H) [...] BASIC METABOLIC PANEL Routine 04/06/2023 10:50 AM CARD CLOTHIER Liver replaced by transplant (H) documented in this encounter Results * (ABNORMAL) Basic metabolic panel (04/06/2023 10:50 AM CARD CLOTHIER) Sodium (External) 138 135 - 149 mmol/L [...] BLOOD SPECIMEN / Unknown 04/06/2023 10:50 AM CARD CLOTHIER Narrative SAMANTHA PFT - 04/08/2023 6:41 AM CARD CLOTHIER Verified by Yamil Santo on 04/08/2023. Freddy [...] as of this encounter Care Teams Manager Nicu Relationship Specialty Start Date End Date Rubén Boyle MD PCP - General Family Practice 03/08/16 Pamela Blanco NP [facility] [address] [place] [address] Referring Physician 07/13/16 Pedro Segura MD [facility] [address] [place] [address] Nephrology 10/03/16 Freddy Craft MD 516 [facility] [place] [address] Assigned Gastroenterology Provider 02/08/20 Abdifatah Van MD 717 [facility] [address] [place] [address] Assigned Nephrology Provider 07/13/20 11/07/23 Nicole Carranza NP 420 [facility] MMC 508 [place] [address] Assigned Heart and Vascular Provider 01/09/22 Andressa Ruiz PA-C 420 [facility] 803 [place] [address] Physician Plaster Maker Endocrinology, Diabetes, and Metabolism 03/01/22 Rubén Gunter [facility] 909 [place] [address] Assigned MTM Pharmacist 02/27/22 Andressa Ruiz PA-C 420 [facility] 803 [place] [address] Assigned Endocrinology Provider 03/13/22 09/07/23 Suzan Harry MD [address] [place] [address] Nephrology 06/30/23 Yasmeen Powers MD 500 [place] [address] Nephrology 10/24/23 Yasmeen Powers MD 500 [place] [address] Assigned Nephrology Provider 11/08/23 documented as of this encounter
--- OUTSIDE RECORDS SUMMARY | 2024-01-26 22:27 | XMS_ITS | Encounter Summary ---
Author Organization [facility] Address [address] [place] [address] Care Team Providers Care Market Master Name Role Phone Rubén Boyle MD Primary Care Provider Pamela Blanco FUR GLOSSER Unavailable Pedro Segura MD Unavailable [phone] Freddy Craft MD Unavailable Nicole Carranza FUR GLOSSER Unavailable [phone] Andressa Ruiz-C Unavailable Suzan Harry MD Unavailable [phone] Yasmeen Powers MD Unavailable [phone] Yasmeen Powers MD Unavailable [phone] Reason for Visit * Reason Onset Date Comments Transplant Immunosuppression Management 12/16/19 24 Encounter Details Date Type Department Care Team (Late st Contact Info) Description 12/16/2023 Telephone [facility] 909 [place] [address] Malinda Alves RN Transplant Immunosuppression [...] documented as of this encounter Care Teams Market Master Relationship Specialty Start Date End Date Rubén Boyle MD PCP - General Family Practice 03/08/16 Pamela Blanco, FUR GLOSSER [facility] [address] [place] [address] Referring Physician 07/13/16 Pedro Segura MD [facility] [address] [place] [address] Nephrology 10/03/16 Freddy Craft MD 516 [facility] 2[facility] [place], [place] [address]115 Assigned Gastroenterology Provider 02/08/20 Nicole Carranza NP 420 [facility] 508 [place], [place] 75[address]95 Assigned Heart and Vascular Provider 01/09/22 Andressa Ruiz PA-C 420 [facility] 803 [place], [place] [address]6845 Physician Wildlife Removal Specialist Endocrinology, Diabetes, and Metabolism 03/01/22 Suzan Harry MD 420 [place], [place] 439325 Nephrology 06/30/23 Yasmeen Powers MD 500 [place], [place] 913915 Nephrology 10/24/23 Yasmeen Powers MD 500 [place], [place] 374635 Assigned Nephrology Provider 11/08/23 documented as of this encounter
--- OUTSIDE RECORDS SUMMARY | 2024-01-26 22:27 | XMS_ITS | Encounter Summary ---
Author Organization [place] Address [address] [place] [address] Care Team Providers Care Dyer Assistant Name Role Phone Rubén Boyle MD Primary Care Provider Pamela Blanco EDI DEVELOPER Unavailable Pedro Segura MD Unavailable Freddy Craft MD Unavailable Abdifatah Van MD Unavailable Nicole Carranza EDI DEVELOPER Unavailable Andressa Ruiz-C Unavailable [phone] Rubén Gunter [facility] Unavailable Andressa Ruiz-C Unavailable Suzan Harry MD Unavailable [phone] Yasmeen Powers MD Unavailable Yasmeen Powers MD Unavailable [phone] Encounter Details Date Type Department Care Team (Late st Contact Info) Description 03/30/2023 MyC Medical Advice [facility] 909 [place] [address] Calli Hall, RN Social History [...] documented as of this encounter Care Teams Dyer Assistant Relationship Specialty Start Date End Date Rubén Boyle MD PCP - General Family Practice 03/08/16 Pamela Blanco NP [facility] [address] [place], [place] [address]17 Referring Physician 07/13/16 Pedro Segura MD [facility] [address] [place], [place] 3488[address] Nephrology 10/03/16 Freddy Craft MD 516 [facility] [address] [place], [place] 543[address] Assigned Gastroenterology Provider 02/08/20 Abdifatah Van MD 717 [facility] [address] [place], [place] 318074 Assigned Nephrology Provider 07/13/20 11/07/23 Nicole Carranza NP 420 [facility] 508 [place] [address] Assigned Heart and Vascular Provider 01/09/22 Andressa Ruiz PA-C 420 [facility] 803 [place] [address] Physician Party Plan Sales Director Endocrinology, Diabetes, and Metabolism 03/01/22 Rubén Gunter [facility] [address] [place] [address] Assigned MTM Pharmacist 02/27/22 Andressa Ruiz PA-C 420 [facility] 803 [place] [address] Assigned Endocrinology Provider 03/13/22 09/07/23 Suzan Harry MD 420 [place] [address] Nephrology 06/30/23 Yasmeen Powers MD 500 [place] [address] Nephrology 10/24/23 Yasmeen Powers MD 500 [place] [address] Assigned Nephrology Provider 11/08/23 documented as of this encounter
--- OUTSIDE RECORDS SUMMARY | 2024-01-26 22:27 | XMS_ITS | Encounter Summary ---
Author Organization [place] Address [address] [place] [address] Care Team Providers Care Fuels Sales Representative Name Role Phone Rubén Boyle MD Primary Care Provider Pamela Blanco AUTOMOTIVE GLASS INSTALLER Unavailable Pedro Segura MD Unavailable Freddy Craft MD Unavailable Abdifatah Van MD Unavailable Nicole Carranza AUTOMOTIVE GLASS INSTALLER Unavailable [phone] Andressa Ruiz-C Unavailable Suzan Harry MD Unavailable [phone] Yasmeen Powers MD Unavailable Yasmeen Powers MD Unavailable Reason for Visit * Reason Onset Date Comments Appointment 10/24/2023 Encounter Details Date Type Department Care Team (Late st Contact Info) Description 10/24/2023 Telephone [facility] Transplant Clinic 909 [place] [address] Felipa Raya, RN Appointment Social [...] been sent to his PCP clinic in [place]. Thank you! 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 06/21/2016 06/21/2016 documented as of this encounter Care Teams Fuels Sales Representative Relationship Specialty Start Date End Date Rubén Boyle MD PCP - General Family Practice 03/08/16 Pamela Blanco AUTOMOTIVE GLASS INSTALLER [facility] [address] [place] [address] Referring Physician 07/13/16 Pedro Segura MD [facility] [address] [place] [address] Nephrology 10/03/16 Freddy Craft MD [address] [place] [address], [place] [address] Assigned Gastroenterology Provider 02/08/20 Abdifatah Van MD 717 [facility] [address] [place] [address] Assigned Nephrology Provider 07/13/20 11/07/23 Nicole Carranza NP 420 [facility] 508 [place] [address] Assigned Heart and Vascular Provider 01/09/22 Andressa Ruiz PA-C 420 [facility] 803 [place] [address] Physician Oriental Medicine Practitioner Endocrinology, Diabetes, and Metabolism 03/01/22 Suzan Harry MD 420 [place] [address] Nephrology 06/30/23 Yasmeen Powers MD 500 [place] [address] Nephrology 10/24/23 Yasmeen Powers MD 500 [place] [address] Assigned Nephrology Provider 11/08/23 documented as of this encounter
--- OUTSIDE RECORDS SUMMARY | 2024-01-26 22:27 | XMS_ITS | Encounter Summary ---
Author Organization [place] Address [address] [place] [address]. [place] [address] Care Team Providers Care Gold Leaf Layer Name Role Phone Rubén Boyle MD Primary Care Provider Pamela Blanco STEEL POURER Unavailable Pedro Segura MD Unavailable Freddy Craft MD Unavailable Abdifatah Van MD Unavailable Nicole Carranza STEEL POURER Unavailable Andressa Ruiz-C Unavailable [phone] Suzan Harry MD Unavailable [phone] Yasmeen Powers MD Unavailable [phone] Yasmeen Powers MD Unavailable Encounter Details Date Type Department Care Team (Late st Contact Info) Description 10/18/2023 Telephone [facility] [address] [place] [address] Laurie Carmen LPN Social History [...] order to submit PA. Alec will call scientific writer back. 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, 07/10/16 rectal swab 06/21/2016 06/21/2016 documented as of this encounter Care Teams Gold Leaf Layer Relationship Specialty Start Date End Date Rubén Boyle MD PCP - General Family Practice 03/08/16 Pamela Blanco NP [facility] [address] [place] [address] Referring Physician 07/13/16 Pedro Segura MD [facility] [address] [place] [address] Nephrology 10/03/16 Freddy Craft MD [address] 7[address]85 Assigned Gastroenterology Provider 02/08/20 Abdifatah Van MD 717 [facility] [address] [place] [address] Assigned Nephrology Provider 07/13/20 11/07/23 Nicole Carranza NP 420 [facility] 508 [place] [address] Assigned Heart and Vascular Provider 01/09/22 Andressa Ruiz PA-C 420 [facility] 803 [place] [address] Physician Gut Snatcher Endocrinology, Diabetes, and Metabolism 03/01/22 Suzan Harry MD 420 [place] [address] Nephrology 06/30/23 Yasmeen Powers MD 500 [place] [address] Nephrology 10/24/23 Yasmeen Powers MD 500 [place] [address] Assigned Nephrology Provider 11/08/23 documented as of this encounter
--- OUTSIDE RECORDS SUMMARY | 2024-01-26 22:27 | XMS_ITS | Encounter Summary ---
Author Organization [place] Address [address] [place] [address] Care Team Providers Care Clasp Machine Operator Name Role Phone Rubén Boyle MD Primary Care Provider Pamela Blanco RELAY RECORD CLERK Unavailable Pedro Segura MD Unavailable Freddy Craft MD Unavailable [phone] Abdifatah Van MD Unavailable Nicole Carranza RELAY RECORD CLERK Unavailable [phone] Andressa Ruiz PA-C Unavailable Suzan Harry MD Unavailable [phone] Reason for Visit * Reason Onset Date Comments Prior Auth - Medication 10/18/2023 Tacrolim us PA Not Needed Encounter Details Date Type Department Care Team (Late st Contact Info) Description 10/18/2023 Telephone [facility] and Marrow Transplant Program [address] [address] Mónica Suarez Prior Auth - [...] documented as of this encounter Care Teams Clasp Machine Operator Relationship Specialty Start Date End Date Rubén Boyle MD PCP - General Family Practice 03/08/16 Pamela Blanco [facility] [address] [place], [place] [address] Referring Physician 07/13/16 Pedro Segura [facility] [address] [place], [place] [address] Nephrology 10/03/16 Freddy Craft MD 516 [facility] [address] [place], [place] [address] Assigned Gastroenterology Provider 02/08/20 Abdifatah Van MD 717 [facility] [address] [place], [place] 8[address]394 Assigned Nephrology Provider 07/13/20 11/07/23 Nicole Carranza NP 420 [facility] 508 [place], [place] [address] Assigned Heart and Vascular Provider 01/09/22 Andressa Ruiz PA-C 420 [facility] 803 [place], [place] 5[address] Physician Grocery Store Bagger Endocrinology, Diabetes, and Metabolism 03/01/22 Suzan Harry MD 420 [place], [place] [address] Nephrology 06/30/23 documented as of this encounter
--- OUTSIDE RECORDS SUMMARY | 2024-01-26 22:28 | XMS_ITS | Encounter Summary ---
Author Organization [place] Address [address] [place] [address] Care Team Providers Care Galvanizer Zinc Name Role Phone Rubén Boyle MD Primary Care Provider [phone] Pamela Blanco MDS RN Unavailable Pedro Segura MD Unavailable Freddy Craft MD Unavailable [phone] Abdifatah Van MD Unavailable Nicole Carranza MDS RN Unavailable [phone] Andressa Ruiz-C Unavailable Ashlyn Storm RN Unavailable [phone] Rubén Gunter [facility] Unavailable Andressa Ruiz-C Unavailable [phone] Suzan Harry MD Unavailable [phone] Yasmeen Powers MD Unavailable [phone] Yasmeen Powers MD Unavailable [phone] Encounter Details Date Type Department Care Team (Late st Contact Info) Description 04/22/2022 External Order Results [facility] [address] [place] [address] Outside, Provider History of liver transplant (H) [...] Coronavirus/COVID-19? No / Unsure 04/05/2022 7:31 AM ASSOCIATE PROFESSOR OF CHEMISTRY documented as of this encounter Plan of Treatment Not on file documented as of this encounter Procedures Procedure Name Priority Date/Time Associated Diagnosis Comments CBC WITH PLATELETS & DIFFERENTIAL Routine 04/22/2022 11:39 AM ASSOCIATE PROFESSOR OF CHEMISTRY TACROLIMUS BY TANDEM MASS SPECTROMETRY Routine 04/22/2022 11:39 AM ASSOCIATE PROFESSOR OF CHEMISTRY History of liver transplant (H) MAGNESIUM Routine 04/22/2022 11:39 AM ASSOCIATE PROFESSOR OF CHEMISTRY HEPATIC FUNCTION PANEL Routine 04/22/2022 11:39 AM ASSOCIATE PROFESSOR OF CHEMISTRY BASIC METABOLIC PANEL Routine 04/22/2022 11:39 AM ASSOCIATE PROFESSOR OF CHEMISTRY documented in this encounter Results * Tacrolimus by Tandem Mass Spectrometry (04/22/2022 11:39 AM ASSOCIATE PROFESSOR OF CHEMISTRY) Tacrolimus(FK-5 06) (External) 4.7 ng/mL NON-INTERFACE D (ONBASE SCANS) Blood 04/22/2022 11:3 9 AM ASSOCIATE PROFESSOR OF CHEMISTRY Narrative SAMANTHA PFT - 04/26/2022 12:21 PM ASSOCIATE PROFESSOR OF CHEMISTRY Verified by Chela Rutledge on 04/26/2022. Freddy Dumont MD LAB - BLOOD ORD ERABLES SAMANTHA PFTameka NON-INTERFACED (ONBASE SCANS) * (ABNORMAL) Basic metabolic panel (04/22/2022 11:39 AM ASSOCIATE PROFESSOR OF CHEMISTRY) Sodium (External) 139 135 - 149 mmol/L [...] BLOOD SPECIMEN / Unknown 04/22/2022 11:39 AM ASSOCIATE PROFESSOR OF CHEMISTRY Narrative SAMANTHA PFT - 04/23/2022 9:53 AM ASSOCIATE PROFESSOR OF CHEMISTRY Verified by Yamil Santo on 04/23/2022. Freddy Dumont MD LAB - BLOOD ORD ERABLES SAMANTHA PF NON-INTERFACED (ONBASE SCANS) * Hepatic function panel (04/22/2022 11:39 AM ASSOCIATE PROFESSOR OF CHEMISTRY) Protein Total (External) 6.1 6.0 - 8.3 [...] BLOOD SPECIMEN / Unknown 04/22/2022 11:39 AM ASSOCIATE PROFESSOR OF CHEMISTRY Narrative BREEZE PFT - 04/23/2022 9:53 AM ASSOCIATE PROFESSOR OF CHEMISTRY Verified by Yamil Santo on 04/23/2022. Freddy Dumont MD LAB - BLOOD ORD ERABLES ERICKEZE PFT NON-INTERFACED (ONBASE SCANS) * Magnesium (04/22/2022 11:39 AM ASSOCIATE PROFESSOR OF CHEMISTRY) Magnesium (External) 1.6 1.5 - 2.6 mg/dL NON-INTERFACED (ONBASE SCANS) Blood BLOOD SPECIMEN / Unknown 04/22/2022 11:39 AM ASSOCIATE PROFESSOR OF CHEMISTRY Narrative BREEZE PFT - 04/23/2022 9:53 AM ASSOCIATE PROFESSOR OF CHEMISTRY Verified by Yamil Santo on 04/23/2022. Freddy Dumont MD LAB - BLOOD ORD ERABLES ERICKEZE PFT NON-INTERFACED (ONBASE SCANS) * (ABNORMAL) CBC with Platelets & Differential (04/22/2022 11:39 AM ASSOCIATE PROFESSOR OF CHEMISTRY) WBC Count (External) 2.02(L) 4.50 - 11.00 [...] BLOOD SPECIMEN / Unknown 04/22/2022 11:39 AM ASSOCIATE PROFESSOR OF CHEMISTRY Narrative SAMANTHA PFT - 04/23/2022 9:53 AM ASSOCIATE PROFESSOR OF CHEMISTRY Verified by Yamil Santo on 04/23/2022. Freddy [...] documented as of this encounter Care Teams Galvanizer Zinc Relationship Specialty Start Date End Date Rubén Boyle MD PCP - General Family Practice 03/08/16 Pamela Blanco MDS RN [facility] [address] [place], [place] [address] Referring Physician 07/13/16 Pedro Segura MD [facility] [address] [place], [place] [address] Nephrology 10/03/16 Freddy Craft MD 516 [facility] 2A [place], [place] [address] Assigned Gastroenterology Provider 02/08/20 Abdifatah Van MD 717 [facility] [address] [place] [address] Assigned Nephrology Provider 07/13/20 11/07/23 Nicole Carranza NP 420 [facility] 508 [place] [address] Assigned Heart and Vascular Provider 01/09/22 Andressa Ruiz PA-C 420 [facility] 803 [place] [address] Physician Oilseed Meat Presser Endocrinology, Diabetes, and Metabolism 03/01/22 Ashlyn Storm RN [facility] 711 [place], [place] [address] Registered Nurse 03/03/22 09/15/22 Rubén Gunter [facility] 909 [place] [address] Assigned MTM Pharmacist 02/27/22 Andressa Ruiz PA-C 420 [facility] 803 [place] [address] Assigned Endocrinology Provider 03/13/22 09/07/23 Suzan Harry MD 420 [place], [place] 3[address] Nephrology 06/30/23 Yasmeen Powers MD 500 [place] [address] Nephrology 10/24/23 Yasmeen Powers MD 500 [place] [address] Assigned Nephrology Provider 11/08/23 documented as of this encounter
--- OUTSIDE RECORDS SUMMARY | 2024-01-26 22:28 | XMS_ITS | Encounter Summary ---
Author Organization [place] Address [address] [place] [address] Care Team Providers Care Safety Risk Lead Name Role Phone Rubén Boyle MD Primary Care Provider Pamela Blanco RADIO INSTALLER AUTOMOBILE Unavailable Pedro Segura MD Unavailable [phone] Freddy Craft MD Unavailable Abdifatah Van MD Unavailable Nicole Carranza RADIO INSTALLER AUTOMOBILE Unavailable Andressa Ruiz-C Unavailable Rubén Gunter [facility] Unavailable Andressa Ruiz-C Unavailable Suzan Harry MD Unavailable Yasmeen Powers MD Unavailable Yasmeen Powers MD Unavailable [phone] Encounter Details Date Type Department Care Team (Late st Contact Info) Description 01/13/2023 MyC Medical Advice [facility] Transplant Clinic 9[address] [place] [address] Lashanda Hsieh, [facility] Social History Tobacco Use Types Packs/Day [...] documented as of this encounter Care Teams Safety Risk Lead Relationship Specialty Start Date End Date Rubén Boyle MD PCP - General Family Practice 03/08/16 Pamela Blanco RADIO INSTALLER AUTOMOBILE [facility] [address] [place] [address] Referring Physician 07/13/16 Pedro Segura MD [facility] [address] [place] [address] Nephrology 10/03/16 Freddy Craft MD 516 [facility] [address] [place], [place] [address] Assigned Gastroenterology Provider 02/08/20 Abdifatah Van MD 717 [facility] [address] [place], [place] [address] Assigned Nephrology Provider 07/13/20 11/07/23 Nicole Carranza NP 420 [facility] 508 [place] [address] Assigned Heart and Vascular Provider 01/09/22 Andresas Ruiz PA-C 420 [facility] 803 [place] [address] Physician Civil Engineer Land Development Endocrinology, Diabetes, and Metabolism 03/01/22 Rubén Gunter [facility] [address] [place] [address] Assigned MTM Pharmacist 02/27/22 Andressa Ruiz PA-C 420 [facility] 803 [place] [address] Assigned Endocrinology Provider 03/13/22 09/07/23 Suzan Harry MD [address] [place] [address] Nephrology 06/30/23 Yasmeen Powers MD 500 [place] [address] Nephrology 10/24/23 Yasmeen Powers MD 500 [place] [address] Assigned Nephrology Provider 11/08/23 documented as of this encounter
--- OUTSIDE RECORDS SUMMARY | 2024-01-26 22:28 | XMS_ITS | Encounter Summary ---
Author Organization [place] Address [address] [place] [address] Care Team Providers Care Consultant Electronics Name Role Phone Rubén Boyle MD Primary Care Provider Pamela Blanco CELL TECHNICIAN Unavailable Pedro Segura MD Unavailable Freddy Craft MD Unavailable Abdifatah Van MD Unavailable Nicole Carranza CELL TECHNICIAN Unavailable Andressa Ruiz-C Unavailable Ashlyn Storm RN Unavailable Rubén Gunter [facility] Unavailable Andressa Ruiz-C Unavailable [phone] Suzan Harry MD Unavailable [phone] Yasmeen Powers MD Unavailable Yasmeen Powers MD Unavailable [phone] Encounter Details Date Type Department Care Team (Late st Contact Info) Description 05/12/2022 [facility] Medical Advice [facility] Specialty [facility] 909 [facility] 3rd Floor Clinic [address]A [place] [address] Ashlyn Storm, RN [facility] 711 [place], [place] [address] Social History Tobacco Use Types Packs/Day Years [...] Practice 03/08/16 Pamela Blanco NP [facility] [address] [place] [address] Referring Physician 07/13/16 Pedro Segura MD [facility] [address] [place], [place] [address] Nephrology 10/03/16 Freddy Craft MD 516 [facility] 2A [place] [address] Assigned Gastroenterology Provider 02/08/20 Abdifatah Van MD 717 [facility] [address] [place] [address] Assigned Nephrology Provider 07/13/20 11/07/23 Nicole Carranza NP 420 [facility] 508 [place] [address] Assigned Heart and Vascular Provider 01/09/22 Andressa Ruiz PA-C 420 [facility] 803 [place] [address] Physician Platform Builder Endocrinology, Diabetes, and Metabolism 03/01/22 sAhlyn Storm RN [facility] 711 [place] [address] Registered Nurse 03/03/22 09/15/22 Rubén Gunter [facility] [address] [place] [address] Assigned MTM Pharmacist 02/27/22 Andressa Ruiz PA-C [address] [place], [place] [address] [place] [address] Assigned Endocrinology Provider 03/13/22 09/07/23 Suzan Harry MD [address] [place] [address] Nephrology 06/30/23 Yasmeen Powers MD 500 [place], [place] [address] Nephrology 10/24/23 Yasmeen Powers MD 500 [place] [address] Assigned Nephrology Provider 11/08/23 documented as of this encounter
--- OUTSIDE RECORDS SUMMARY | 2024-01-26 22:28 | XMS_ITS | Encounter Summary ---
Author Organization [place] Address [address] [place] [address] Care Team Providers Care Hadoop Administrator Name Role Phone Rubén Boyle MD Primary Care Provider Pamela Blanco GEM CARVER Unavailable Pedro Segura MD Unavailable Freddy Craft MD Unavailable Abdifatah Van MD Unavailable Nicole Carranza GEM CARVER Unavailable [phone] Andressa Ruiz-C Unavailable [phone] Ashlyn Storm RN Unavailable Rubén Gunter [facility] Unavailable Andressa Ruiz-C Unavailable Suzan Harry MD Unavailable [phone] Yasmeen Powers MD Unavailable [phone] Yasmeen Powers MD Unavailable [phone] Encounter Details Date Type Department Care Team (Late st Contact Info) Description 07/05/2022 External Order Results [facility] [address] [place] [address] Outside, Provider Social History Tobacco Use Types [...] Mass Spectrometry (07/05/2022 1:38 PM CDT) Pathologist [facility] Tacrolimus(FK-5 06) (External) 7.8 5.0 - 15.0 [...] ORD ERABLES Performing Organization Address [facility]/ZIP Co de Phone Number BRECARISA PFT [...] documented as of this encounter Care Teams Hadoop Administrator Relationship Specialty Start Date End Date Rubén Boyle MD PCP - General Family Practice 03/08/16 Pamela Blanco GEM CARVER [facility] [address] [place], [place] [address] Referring Physician 07/13/16 Pedro Segura MD [facility] [address] [place], [place] [address] Nephrology 10/03/16 Freddy Craft MD 516 [facility] 2A [place] [address] Assigned Gastroenterology Provider 02/08/20 Abdifatah Van MD 717 [facility] [address] [place] [address] Assigned Nephrology Provider 07/13/20 11/07/23 Nicole Carranza NP 420 [facility] 508 [place] [address] Assigned Heart and Vascular Provider 01/09/22 Andressa Ruiz PA-C 420 [facility] 803 [place] [address] Physician Avp Endocrinology, Diabetes, and Metabolism 03/01/22 Ashlyn Storm RN [facility] 711 [place] [address] Registered Nurse 03/03/22 09/15/22 Rubén Gunter [facility] 909 [place], [place] [address] Assigned MTM Pharmacist 02/27/22 Andressa Ruiz PA-C 420 [facility] 803 [place], [place] [address] Assigned Endocrinology Provider 03/13/22 09/07/23 Suzan Harry MD 420 [place], [place] [address] Nephrology 06/30/23 Yasmeen Powers MD 500 [place], [place] [address] Nephrology 10/24/23 Yasmeen Powers MD 500 [place], [place] [address] Assigned Nephrology Provider 11/08/23 documented as of this encounter
--- OUTSIDE RECORDS SUMMARY | 2024-01-26 22:28 | XMS_ITS | Encounter Summary ---
Author Organization [place] Address [address] [place] [address] Care Team Providers Care Mechanical Apprentice Name Role Phone Rubén Boyle MD Primary Care Provider Pamela Blanco COMMERCIAL INSURANCE UNDERWRITER Unavailable Pedro Segura MD Unavailable Freddy Craft MD Unavailable Abdifatah Van MD Unavailable Nicole Carranza COMMERCIAL INSURANCE UNDERWRITER Unavailable Andressa Ruiz-C Unavailable [phone] Rubén Gunter [facility] Unavailable Andressa Ruiz-C Unavailable Suzan Harry MD Unavailable [phone] Yasmeen Powers MD Unavailable Yasmeen Powers MD Unavailable [phone] Encounter Details Date Type Department Care Team (Late st Contact Info) Description 01/04/2023 MyC Medical Advice [facility] Transplant Clinic 909 [place] [address] Calli Hall, RN Social History [...] as of this encounter Care Teams Mechanical Apprentice Relationship Specialty Start Date End Date Rubén Boyle MD PCP - General Family Practice 03/08/16 Pamela Blanco NP [facility] [address] [place], [place] [address]227 Referring Physician 07/13/16 Pedro Segura MD [facility] [address] [place], [place] [address] Nephrology 10/03/16 Freddy Craft MD 516 [facility] [address] [place], [place] [address] Assigned Gastroenterology Provider 02/08/20 Abdifatah Van MD 717 [facility] [address] [place], [place] [address]64 Assigned Nephrology Provider 07/13/20 11/07/23 Nicole Carranza NP 420 [facility] 508 [place] [address] Assigned Heart and Vascular Provider 01/09/22 Andressa Ruiz PA-C 420 [facility] 803 [place] [address] Physician Package Maker Endocrinology, Diabetes, and Metabolism 03/01/22 Rubén Gunter [facility] [address] [place] [address] Assigned MTM Pharmacist 02/27/22 Andressa Ruiz PA-C 420 [facility] 803 [place] [address] Assigned Endocrinology Provider 03/13/22 09/07/23 Suzan Harry MD 420 [place] [address] Nephrology 06/30/23 Yasmeen Powers MD 500 [place] [address] Nephrology 10/24/23 Yasmeen Powers MD 500 [place] [address] Assigned Nephrology Provider 11/08/23 documented as of this encounter
--- OUTSIDE RECORDS SUMMARY | 2024-01-26 22:28 | XMS_ITS | Encounter Summary ---
Author Organization [place] Address [address] [place] [address]. [place] [address] Care Team Providers Care As400 Analyst Name Role Phone Rubén Boyle MD Primary Care Provider Pamela Blanco MOLDING ENGINEER Unavailable Pedro Segura MD Unavailable Freddy Craft MD Unavailable [phone] Abdifatah Van MD Unavailable Nicole Carranza MOLDING ENGINEER Unavailable Andressa Ruiz-C Unavailable Ashlyn Storm RN Unavailable Rubén Gunter [facility] Unavailable Andressa Ruiz-C Unavailable Suzan Harry MD Unavailable [phone] Yasmeen Powers MD Unavailable Yasmeen Powers MD Unavailable Encounter Details Date Type Department Care Team (Late st Contact Info) Description 02/23/2022 MyC Medical Advice [facility] PREOP/PHASE II 2450 [place] [address] Laurie Torres Social History Tobacco [...] Coronavirus/COVID-19? 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, 07/10/16 rectal swab 06/21/2016 06/21/2016 documented as of this encounter Care Teams As400 Analyst Relationship Specialty Start Date End Date Rubén Boyle MD PCP - General Family Practice 03/08/16 Pamela Blanco NP [facility] [address] [place] [address] Referring Physician 07/13/16 Pedro Segura MD [facility] [address] [place] [address] Nephrology 10/03/16 Freddy Craft MD [address] 48[address] Assigned Gastroenterology Provider 02/08/20 Abdifatah Van MD 717 [facility] 353 [place] [address] Assigned Nephrology Provider 07/13/20 11/07/23 Nicole Carranza NP 420 [facility] 508 [place] [address] Assigned Heart and Vascular Provider 01/09/22 Andressa Ruiz PA-C 420 [facility] 803 [place] [address] Physician Child Support Investigator Endocrinology, Diabetes, and Metabolism 03/01/22 Ashlyn Sotrm, RN [facility] 711 [place] [address] Registered Nurse 03/03/22 09/15/22 Rubén Gunter [facility] [address] [place] [address] Assigned MTM Pharmacist 02/27/22 Andressa Ruiz PA-C 420 [facility] 803 [place] [address] Assigned Endocrinology Provider 03/13/22 09/07/23 Suzan Harry MD 420 [place] [address] Nephrology 06/30/23 Yasmeen Powers MD 500 [place], [place] [address] Nephrology 10/24/23 Yasmeen Powers MD 500 [place], [place] 418695 Assigned Nephrology Provider 11/08/23 documented as of this encounter
--- OUTSIDE RECORDS SUMMARY | 2024-01-26 22:28 | XMS_ITS | Encounter Summary ---
Author Organization [place] Address [address] [place] [address] Care Team Providers Care Sourcing Intern Name Role Phone Rubén Boyle MD Primary Care Provider [phone] Pamela Blanco POWDER MONKEY Unavailable Pedro Segura MD Unavailable Freddy Craft MD Unavailable Abdifatah Van MD Unavailable Nicole Carranza POWDER MONKEY Unavailable Andressa Ruiz-C Unavailable Rubén Gunter [facility] Unavailable Andressa Ruiz-C Unavailable Suzan Harry MD Unavailable [phone] Yasmeen Powers MD Unavailable Yasmeen Powers MD Unavailable [phone] Encounter Details Date Type Department Care Team (Late st Contact Info) Description 09/27/2022 MyC Medical Advice [facility] Transplant Clinic 909 [place] [address] Lashanda Hsieh, [facility] Social History Tobacco Use Types [...] documented as of this encounter Care Teams Sourcing Intern Relationship Specialty Start Date End Date Rubén Boyle MD PCP - General Family Practice 03/08/16 Pamela Blanco POWDER MONKEY [facility] [address] [place], [place] [address]407 Referring Physician 07/13/16 Pdero Segura MD [facility] [address] [place], [place] [address] Nephrology 10/03/16 Freddy Craft MD 516 [facility] [place], [place] [address] Assigned Gastroenterology Provider 02/08/20 Abdifatah Van MD 717 [facility] [address] [place] [address] Assigned Nephrology Provider 07/13/20 11/07/23 Nicole Carranza NP 420 [facility] 508 [place] [address] Assigned Heart and Vascular Provider 01/09/22 Andressa Ruiz PA-C 420 [facility] 803 [place] [address] Physician Wood Hacker Endocrinology, Diabetes, and Metabolism 03/01/22 [facility] [address] [place] [address] Assigned MTM Pharmacist 02/27/22 Andressa Ruiz PA-C 420 [facility] 803 [place] [address] Assigned Endocrinology Provider 03/13/22 09/07/23 Suzan Harry MD 420 [place] [address] Nephrology 06/30/23 Yasmeen Powers MD 500 [place] [address] Nephrology 10/24/23 Yasmeen Powers MD 500 [place] [address] Assigned Nephrology Provider 11/08/23 documented as of this encounter
--- OUTSIDE RECORDS SUMMARY | 2024-01-26 22:28 | XMS_ITS | Encounter Summary ---
Author Organization [place] Address [address] [place] [address] Care Team Providers Care Lift Manager Name Role Phone Rubén Boyle MD Primary Care Provider Pamela Blanco SUPERVISOR FRAME SAMPLE AND PATTERN Unavailable Pedro Segura MD Unavailable [phone] Freddy Craft MD Unavailable Abdifatah Van MD Unavailable Nicole Carranza SUPERVISOR FRAME SAMPLE AND PATTERN Unavailable [phone] Andressa Ruiz-C Unavailable Ashlyn Storm RN Unavailable Rubén Gunter [facility] Unavailable Andressa Ruiz-C Unavailable Suzan Harry MD Unavailable [phone] Yasmeen Powers MD Unavailable [phone] Yasmeen Powers MD Unavailable [phone] Encounter Details Date Type Department Care Team (Late st Contact Info) Description 01/13/2022 [facility] [address] [place] [address] Ami Rivero LPN Social History [...] documented as of this encounter Care Teams Lift Manager Relationship Specialty Start Date End Date Rubén Boyle MD PCP - General Family Practice 03/08/16 Pamela Blanco SUPERVISOR FRAME SAMPLE AND PATTERN [facility] [address] [place] [address] Referring Physician 07/13/16 Pedro Segura MD [facility] [address] [place] [address] Nephrology 10/03/16 Freddy Craft MD [address] 364[address] Assigned Gastroenterology Provider 02/08/20 Abdifatah Van MD [address] [place] [address] [address] [place] [address] Assigned Nephrology Provider 07/13/20 11/07/23 Nicole Carranza NP 420 [facility] 508 [place] [address] Assigned Heart and Vascular Provider 01/09/22 Andressa Ruiz PA-C 420 [facility] 803 [place] [address] Physician Transcription Typist Endocrinology, Diabetes, and Metabolism 03/01/22 Ashlyn Storm RN [facility] 711 [place] [address] Registered Nurse 03/03/22 09/15/22 Rubén Gunter [facility] [address] [place] [address] Assigned MTM Pharmacist 02/27/22 Andressa Ruiz PA-C 420 [facility] 803 [place] [address] Assigned Endocrinology Provider 03/13/22 09/07/23 Suzan Harry MD 420 [place] [address] Nephrology 06/30/23 Yasmeen Powers MD 500 [place], [place] 185165 Nephrology 10/24/23 Yasmeen Powers MD [address] [place] [address] Assigned Nephrology Provider 11/08/23 documented as of this encounter
--- OUTSIDE RECORDS SUMMARY | 2024-01-26 22:28 | XMS_ITS | Encounter Summary ---
Author Organization [place] Address [address] [place] [address] Care Team Providers Care Cogeneration Technician Name Role Phone Rubén Boyle MD Primary Care Provider Pamela Blanco FACILITIES MAINTENANCE MANAGER Unavailable Pedro Segura MD Unavailable Freddy Craft MD Unavailable Abdifatah Van MD Unavailable Nicole Carranza FACILITIES MAINTENANCE MANAGER Unavailable [phone] Andressa Ruiz PA-C Unavailable Ashlyn Storm RN Unavailable Rubén Gunter [facility] Unavailable Andressa Ruiz-C Unavailable [phone] Suzan Harry MD Unavailable [phone] Yasmeen Powers MD Unavailable [phone] Yasmeen Powers MD Unavailable [phone] Encounter Details Date Type Department Care Team (Late st Contact Info) Description 01/25/2022 [facility] [address] [place] [address] Calli Hall RN Social History [...] documented as of this encounter Care Teams Cogeneration Technician Relationship Specialty Start Date End Date Rubén Boyle MD PCP - General Family Practice 03/08/16 Pamela Blanco NP [facility] [address] [place] [address] Referring Physician 07/13/16 Pedro Segura MD [facility] [address] [place] [address] Nephrology 10/03/16 Freddy Craft MD [address] 947845 Assigned Gastroenterology Provider 02/08/20 Abdifatah Van MD 717 [facility] [address] [place] [address] Assigned Nephrology Provider 07/13/20 11/07/23 Nicole Carranza NP 420 [facility] 508 [place] [address] Assigned Heart and Vascular Provider 01/09/22 Andressa Ruiz PA-C 420 [facility] 803 [place] [address] Physician Barrel Charrer Endocrinology, Diabetes, and Metabolism 03/01/22 Ashlyn Storm, RN [facility] 711 [place] [address] Registered Nurse 03/03/22 09/15/22 Rubén Gunter [facility] [address] [place] [address] Assigned MTM Pharmacist 02/27/22 Andressa Ruiz PA-C 420 [facility] 803 [place] [address] Assigned Endocrinology Provider 03/13/22 09/07/23 Suzan Harry MD 420 [place] [address] Nephrology 06/30/23 Yasmeen Powers MD 500 [place], [place] 596515 Nephrology 10/24/23 Yasmeen Powers MD [address] [place] [address] Assigned Nephrology Provider 11/08/23 documented as of this encounter
--- OUTSIDE RECORDS SUMMARY | 2024-01-26 22:28 | XMS_ITS | Encounter Summary ---
Author Organization [place] Address [address] [place] [address] Care Team Providers Care Sixth Grade Teacher Name Role Phone Rubén Boyle MD Primary Care Provider Pamela Blanco PICKING MACHINE OPERATOR Unavailable Pedro Segura MD Unavailable [phone] Freddy Craft MD Unavailable [phone] Abdifatah Van MD Unavailable Nicole Carranza PICKING MACHINE OPERATOR Unavailable [phone] Andressa Ruiz-C Unavailable Ashlyn Storm RN Unavailable [phone] Rubén Gunter [facility] Unavailable Andressa Ruiz-C Unavailable Suzan Harry MD Unavailable [phone] Yasmeen Powers MD Unavailable [phone] Yasmeen Powers MD Unavailable [phone] Encounter Details Date Type Department Care Team (Late st Contact Info) Description 03/03/2022 [facility] [address] 3[address] [place] [address] [facility] Social History Tobacco Use Types Packs/Day Years [...] Coronavirus/COVID-19? 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, 07/10/16 rectal swab 06/21/2016 06/21/2016 documented as of this encounter Care Teams Sixth Grade Teacher Relationship Specialty Start Date End Date Rubén Boyle MD PCP - General Family Practice 03/08/16 Pamela Blanco NP [facility] [address] [place] [address] Referring Physician 07/13/16 Pedro Segura MD [facility] [address] [place] [address] Nephrology 10/03/16 Freddy Craft MD [address] 937785 Assigned Gastroenterology Provider 02/08/20 Abdifatah Van MD 717 [facility] [address] [place] [address] Assigned Nephrology Provider 07/13/20 11/07/23 Nicole Carranza NP 420 [facility] [address] [place] [address] Assigned Heart and Vascular Provider 01/09/22 Anrdessa Ruiz PA-C 420 [facility] 803 [place] [address] Physician Animal Control Officer Endocrinology, Diabetes, and Metabolism 03/01/22 Ashlyn Storm, RN [facility] 711 [place] [address] Registered Nurse 03/03/22 09/15/22 Rubén Gunter [facility] [address] [place] [address] Assigned MTM Pharmacist 02/27/22 Andressa Ruiz PA-C 420 [facility] 803 [place] [address] Assigned Endocrinology Provider 03/13/22 09/07/23 Suzan Harry MD 420 [place] [address] Nephrology 06/30/23 Yasmeen Powers MD 500 [place], [place] 588845 Nephrology 10/24/23 Yasmeen Powers MD 500 [place] [address] Assigned Nephrology Provider 11/08/23 documented as of this encounter
--- OUTSIDE RECORDS SUMMARY | 2024-01-26 22:28 | XMS_ITS | Encounter Summary ---
Author Organization [place] Address [address] [place] [address] Care Team Providers Care Accounts Receivable Representative Name Role Phone Rubén Boyle MD Primary Care Provider Pamela Blanco VAULT CUSTODIAN Unavailable Pedro Segura MD Unavailable Freddy Craft MD Unavailable [phone] Abdifatah Van MD Unavailable Nicole Carranza VAULT CUSTODIAN Unavailable [phone] Andressa Ruiz-C Unavailable Ashlyn Storm RN Unavailable Rubén Gunter [facility] Unavailable Andressa Ruiz-C Unavailable [phone] Suzan Harry MD Unavailable [phone] Yasmeen Powers MD Unavailable [phone] Yasmeen Powers MD Unavailable [phone] Encounter Details Date Type Department Care Team (Late st Contact Info) Description 02/22/2022 External Order Results [facility] [address] [place] [address] Outside, Provider Social History Tobacco Use Types [...] Coronavirus/COVID-19? No / Unsure 02/24/2022 7:54 AM [facility] documented as of this encounter Plan of Treatment Not on file documented as of this encounter Procedures Procedure Name Priority Date/Time Associated Diagnosis Comments COVID-19 VIRUS (CORONAVIRUS) BY PCR (EXTERNAL RESULT) Routine 02/22/2022 10:45 AM [facility] documented in this encounter Results * COVID-19 Virus (Coronavirus) by PCR (External Result) (02/22/2022 10:45 AM [facility]) COVID-19 Virus by PCR (External Result) Negative Negative NON-INTERFACE D (ONBASE SCANS) 02/22/2022 10:4 5 AM [facility] Narrative SAMANTHA PFT - 02/23/2022 3:26 PM [facility] Verified by Rhiannon Cain on 02/23/2022. 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, 07/10/16 rectal swab 06/21/2016 06/21/2016 documented as of this encounter Care Teams Accounts Receivable Representative Relationship Specialty Start Date End Date Rubén Boyle MD PCP - General Family Practice 03/08/16 Pamela Blanco VAULT CUSTODIAN [facility] [address] [place] [address] Referring Physician 07/13/16 Pedro Segura MD [facility] [address] [place] [address] Nephrology 10/03/16 Freddy Craft MD 516 [facility] [address] [place], [place] 802425 Assigned Gastroenterology Provider 02/08/20 Abdifatah Van MD 717 [facility] [address] [place], [place] 9[address] Assigned Nephrology Provider 07/13/20 11/07/23 Nicole Carranza NP 420 [facility] [address] [place], [place] 403755 Assigned Heart and Vascular Provider 01/09/22 Andressa Ruiz PA-C 420 [facility] 803 [place], [place] 126715 Physician Crusher Foreman Endocrinology, Diabetes, and Metabolism 03/01/22 Ashlyn Storm RN [facility] 711 [place], [place] 588594 Registered Nurse 03/03/22 09/15/22 Rubén Gunter [facility] 909 [facility] [address] [place], [place] 263555 Assigned MTM Pharmacist 02/27/22 Andressa Ruiz PA-C 420 [facility] [address] [place], [place] 7[address]95 Assigned Endocrinology Provider 03/13/22 09/07/23 Suzan Harry MD 420 [place], [place] 540655 Nephrology 06/30/23 Yasmeen Powers MD 500 [place], [place] 781915 Nephrology 10/24/23 Yasmeen Powers MD 500 [place] [address] Assigned Nephrology Provider 11/08/23 documented as of this encounter
--- OUTSIDE RECORDS SUMMARY | 2024-01-26 22:28 | XMS_ITS | Encounter Summary ---
Author Organization [place] Address [address] [place] [address] Care Team Providers Care Cork Mixer Name Role Phone Rubén Boyle MD Primary Care Provider Pamela Blanco ICE CREAM MAKER Unavailable [phone] Pedro Segura MD Unavailable Freddy Craft MD Unavailable Abdifatah Van MD Unavailable Nicole Carranza ICE CREAM MAKER Unavailable [phone] Andressa Ruiz-C Unavailable Ashlyn Storm RN Unavailable Rubén Gunter [facility] Unavailable Andressa Ruiz-C Unavailable Suzan Harry MD Unavailable [phone] Yasmeen Powers MD Unavailable [phone] Yasmeen Powers MD Unavailable [phone] Encounter Details Date Type Department Care Team (Late st Contact Info) Description 05/27/2022 External Order Results [facility] [address] [place] [address] Outside, Provider History of liver transplant (H) [...] PLATELETS & DIFFERENTIAL Routine 05/27/2022 10:30 AM DEBRANDER TACROLIMUS BY TANDEM MASS SPECTROMETRY Routine 05/27/2022 10:30 AM DEBRANDER History of liver transplant (H) MAGNESIUM Routine 05/27/2022 10:30 AM DEBRANDER HEPATIC FUNCTION PANEL Routine 05/27/2022 10:30 AM DEBRANDER BASIC METABOLIC PANEL Routine 05/27/2022 10:30 AM DEBRANDER documented in this encounter Results * Tacrolimus by Tandem Mass Spectrometry (05/27/2022 10:30 AM DEBRANDER) Pathologist [facility] Tacrolimus(FK-5 06) (External) 4.8 See scan ng/ml NON-INTERFACED (ONBASE SCANS) Blood 05/27/2022 10:3 0 AM DEBRANDER Narrative SAMANTHA PFT - 05/31/2022 4:42 PM DEBRANDER Verified by Melissa Otto on 05/31/2022. Freddy Dumont MD LAB - BLOOD ORD ERABLES ERICKCARISA PFT NON-INTERFACED (ONBASE SCANS) * (ABNORMAL) CBC with Platelets & Differential (05/27/2022 10:30 AM DEBRANDER) Pathologist [facility] WBC Count (External) 2.95(L) 4.50 - 11.00 [...] NAEEM SINGH PFT - 05/31/2022 7:10 AM DEBRANDER Verified by Pedrito Stallworth on 05/31/2022. Freddy Dumont MD LAB - BLOOD ORD ERABLES [place] PFT NON-INTERFACED (ONBASE SCANS) * Magnesium (05/27/2022 10:30 AM DEBRANDER) Magnesium (External) 1.6 1.5 - 2.6 mg/dL NON-INTERFACED (ONBASE SCANS) Blood BLOOD SPECIMEN / Unknown 05/27/2022 10:30 AM DEBRANDER Narrative BREEZE PFT - 05/31/2022 7:10 AM DEBRANDER Verified by Pedrito Stallworth on 05/31/2022. Freddy Dumont MD LAB - BLOOD ORD ERABLES [place] PFT NON-INTERFACED (ONBASE SCANS) * Hepatic function panel (05/27/2022 10:30 AM DEBRANDER) Protein Total (External) 6.7 6.0 - 8.3 [...] BLOOD SPECIMEN / Unknown 05/27/2022 10:30 AM DEBRANDER Narrative BREEZE PFT - 05/31/2022 7:10 AM DEBRANDER Verified by Pedrito Stallworth on 05/31/2022. Freddy Dumont MD LAB - BLOOD ORD ERABLES Performing Organization Address City/[facility]/ZIP Co de Phone Number SAMANTHA PFT NON-INTERFACED (ONBASE SCANS) * (ABNORMAL) Basic metabolic panel (05/27/2022 10:30 AM DEBRANDER) Sodium (External) 141 135 - 149 mmol/L [...] BLOOD SPECIMEN / Unknown 05/27/2022 10:30 AM DEBRANDER Narrative SAMANTHA PFT - 05/31/2022 7:10 AM DEBRANDER Verified by Pedrito Stallworth on 05/31/2022. 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, 07/10/16 rectal swab 06/21/2016 06/21/2016 documented as of this encounter Care Teams Cork Mixer Relationship Specialty Start Date End Date Rubén Boyle MD PCP - General Family Practice 03/08/16 Pamela Blanco ICE CREAM MAKER [facility] [address] [place], [place] 336597 Referring Physician 07/13/16 Pedro Segura MD [facility] [address] [place], [place] [address] Nephrology 10/03/16 Freddy Craft MD 516 [facility] [place] [address] Assigned Gastroenterology Provider 02/08/20 Abdifatah Van MD 717 [facility] [address] [place] [address] Assigned Nephrology Provider 07/13/20 11/07/23 Nicole Carranza NP 420 [facility] 508 [place] [address] Assigned Heart and Vascular Provider 01/09/22 Andressa Ruiz PA-C 420 [facility] 803 [place] [address] Physician Licensed Psychologist Director Endocrinology, Diabetes, and Metabolism 03/01/22 Ashlyn Storm RN [facility] 711 [place] [address] Registered Nurse 03/03/22 09/15/22 Rubén Gunter [facility] 909 [place], [place] 51580[address] Assigned MTM Pharmacist 02/27/22 Andressa Ruiz PA-C 420 [facility] 803 [place], [place] 0[address]85 Assigned Endocrinology Provider 03/13/22 09/07/23 Suzan Harry MD 420 [place], [place] 330[address] Nephrology 06/30/23 Yasmeen Powers MD 500 [place], [place] 27[address] Nephrology 10/24/23 Yasmeen Powers MD 500 [place], [place] 33027[address] Assigned Nephrology Provider 11/08/23 documented as of this encounter
--- OUTSIDE RECORDS SUMMARY | 2024-01-26 22:28 | XMS_ITS | Encounter Summary ---
Author Organization [place] Address [address] [place] [address] Care Team Providers Care Assistant Drafter Name Role Phone Rubén Boyle MD Primary Care Provider Pamela Blanco ORDNANCE TRUCK INSTALLATION MECHANIC Unavailable Pedro Segura MD Unavailable Freddy Craft MD Unavailable [phone] Abdifatah Van MD Unavailable Nicole Carranza ORDNANCE TRUCK INSTALLATION MECHANIC Unavailable [phone] Andressa Ruiz-C Unavailable Ashlyn Storm RN Unavailable Rubén Gunter [facility] Unavailable Andressa Ruiz-C Unavailable Suzan Harry MD Unavailable [phone] Yasmeen Powers MD Unavailable [phone] Yasmeen Powers MD Unavailable [phone] Encounter Details Date Type Department Care Team (Late st Contact Info) Description 11/04/2021 External Order Results [facility] [address] [place] [address] Outside, Provider History of liver transplant (H) [...] ORD ERABLES Performing Organization Address [facility] Co de Phone Number [facility]FT NON-INTERFACED (ONBASE SCANS) * Hepatic [...] Verified by Pedrito Stallworth on 11/05/2021. Freddy Dumotn MD LAB - BLOOD ORD ERALASHAE Performing Organization Address [facility] Co de Phone Number [...] documented as of this encounter Care Teams Assistant Drafter Relationship Specialty Start Date End Date Rubén Boyle MD PCP - General Family Practice 03/08/16 Pamela Blanco ORDNANCE TRUCK INSTALLATION MECHANIC [facility] [address] [place] [address] Referring Physician 07/13/16 Pedro Segura MD [facility] [address] [place], [place] 578[address] Nephrology 10/03/16 Freddy Craft MD 516 [facility] [address] [place], [place] [address] Assigned Gastroenterology Provider 02/08/20 Abdifatah Van MD [address] [facility] [address] [place], [place] [address] Assigned Nephrology Provider 07/13/20 11/07/23 Nicole Carranza, [place] 420 [facility] 508 [place] [address] Assigned Heart and Vascular Provider 01/09/22 Andressa Ruiz PA-C 420 [facility] 803 [place], [place] [address] Physician Belt Builder Endocrinology, Diabetes, and Metabolism 03/01/22 Ashlyn Storm, RN [facility] 711 [place], [place] 517344 Registered Nurse 03/03/22 09/15/22 Rubén Gunter [facility] 909 [place], [place] 100495 Assigned MTM Pharmacist 02/27/22 Andressa Ruiz PA-C 420 [facility] 803 [place], [place] [address]65 Assigned Endocrinology Provider 03/13/22 09/07/23 Suzan Harry MD 420 [place], [place] 9[address]405 Nephrology 06/30/23 Yasmeen Powers MD 500 [place], [place] 609455 Nephrology 10/24/23 Yasmeen Powers MD 500 [place] [address] Assigned Nephrology Provider 11/08/23 documented as of this encounter
--- OUTSIDE RECORDS SUMMARY | 2024-01-26 22:28 | XMS_ITS | Encounter Summary ---
Author Organization [place] Address [address] [place] [address] Care Team Providers Care Green Building Architect Name Role Phone Rubén Boyle MD Primary Care Provider Pamela Blanco MVA REACTOR OPERATOR HEAD Unavailable Pedro Segura MD Unavailable Freddy Craft MD Unavailable Abdifatah Van MD Unavailable Nicole Carranza MVA REACTOR OPERATOR HEAD Unavailable [phone] Andressa Ruiz-C Unavailable Ashlyn Storm RN Unavailable Rubén Gunter [facility] Unavailable Andressa Ruiz-C Unavailable Suzan Harry MD Unavailable [phone] Yasmeen Powers MD Unavailable [phone] Yasmeen Powers MD Unavailable [phone] Encounter Details Date Type Department Care Team (Late st Contact Info) Description 08/31/2022 [facility] Clinic [address] [address] [facility] Social History Tobacco Use Types [...] documented as of this encounter Care Teams Green Building Architect Relationship Specialty Start Date End Date Rubén Boyle MD PCP - General Family Practice 03/08/16 Pamela Blanco NP [facility] [address] [place] [address] Referring Physician 07/13/16 Pedro Segura MD [facility] [address] [place] [address] Nephrology 10/03/16 Freddy Craft MD [address] 281325 Assigned Gastroenterology Provider 02/08/20 Abdifatah Van MD [address] [place] [address] [address] [place] [address] Assigned Nephrology Provider 07/13/20 11/07/23 Nicole Carranza NP 420 [facility] 508 [place] [address] Assigned Heart and Vascular Provider 01/09/22 Andressa Ruiz PA-C 420 [facility] 803 [place] [address] Physician Sail Maker Endocrinology, Diabetes, and Metabolism 03/01/22 Ashlyn Storm RN [facility] 711 [place] [address] Registered Nurse 03/03/22 09/15/22 Rubén Gunter [facility] [address] [place] [address] Assigned MTM Pharmacist 02/27/22 Andressa Ruiz PA-C 420 [facility] 803 [place] [address] Assigned Endocrinology Provider 03/13/22 09/07/23 Suzan Harry MD 420 [place] [address] Nephrology 06/30/23 Yasmeen Powers MD 500 [place], [place] 85[address] Nephrology 10/24/23 Yasmeen Powers MD 500 [place] [address] Assigned Nephrology Provider 11/08/23 documented as of this encounter
--- OUTSIDE RECORDS SUMMARY | 2024-01-26 22:28 | XMS_ITS | Encounter Summary ---
Author Organization [place] Address [address] [place] [address] Care Team Providers Care Heel Boom Operator Name Role Phone Rubén Boyle MD Primary Care Provider [phone] Pamela Blanco VARNISHER APPRENTICE Unavailable Pedro Segura MD Unavailable Freddy Craft MD Unavailable [phone] Abdifatah Van MD Unavailable Nicole Carranza VARNISHER APPRENTICE Unavailable [phone] Andressa Ruiz-C Unavailable Ashlyn Storm RN Unavailable [phone] Rubén Gunter [facility] Unavailable Andressa Ruiz-C Unavailable Suzan Harry MD Unavailable [phone] Yasmeen Powers MD Unavailable [phone] Yasmeen Powers MD Unavailable [phone] Reason for Visit * Reason Onset Date Comments Appointment 12/16/2021 Appt for dx Aort ic Stenosis Encounter Details Date Type Department Care Team (Late st Contact Info) Description 12/16/[address] [place] [address] None Appointment (Appt for dx Aortic Stenosis) [...] may need valve replacement. Echo done at [facility] 10/24/21 Did offer if pt wants appt at [place] but he req for [facility] aware to wait for clinic to call [...] documented as of this encounter Care Teams Heel Boom Operator Relationship Specialty Start Date End Date Rubén Boyle MD PCP - General Family Practice 03/08/16 Pamela Blanco, VARNISHER APPRENTICE [facility] [address] [place] [address] Referring Physician 07/13/[address] [facility] [address] [place], [place] 101[address] Nephrology 10/03/16 Freddy Craft MD [facility] [place], [place] 305055 Assigned Gastroenterology Provider 02/08/20 Abdifatah Van MD 717 [facility] [address] [place], [place] [address]184 Assigned Nephrology Provider 07/13/20 11/07/23 Nicole Carranza NP 420 [facility] 508 [place], [place] 529825 Assigned Heart and Vascular Provider 01/09/22 Andressa Ruiz PA-C 420 [facility] 803 [place], [place] 562435 Physician Office Services Representative Endocrinology, Diabetes, and Metabolism 03/01/22 Ashlyn Storm, RN [facility] 711 [place], [place] 293424 Registered Nurse 03/03/22 09/15/22 Rubén Gunter [facility] 909 [place] [address] Assigned MTM Pharmacist 02/27/22 Andressa Ruiz PA-C 420 [facility] 803 [place], [place] 412165 Assigned Endocrinology Provider 03/13/22 09/07/23 Suzan Harry MD 420 [place], [place] 205765 Nephrology 06/30/23 Yasmeen Powers MD 500 [place] [address] Nephrology 10/24/23 Yasmeen Powers MD 500 [place] [address] Assigned Nephrology Provider 11/08/23 documented as of this encounter
--- OUTSIDE RECORDS SUMMARY | 2024-01-26 22:28 | XMS_ITS | Encounter Summary ---
Author Organization [place] Address [address] [place] [address] Care Team Providers Care Tennis Ball Cover Cementer Name Role Phone Rubén Boyle MD Primary Care Provider Pamela Blanco MAT TESTER Unavailable Pedro Segura MD Unavailable [phone] Freddy Craft MD Unavailable [phone] Abdifatah Van MD Unavailable Nicole Carranza MAT TESTER Unavailable [phone] Andressa Ruiz-C Unavailable Ashlyn Storm RN Unavailable [phone] Rubén Gunter [facility] Unavailable Andressa Ruiz-C Unavailable Suzan Harry MD Unavailable [phone] Yasmeen Powers MD Unavailable Yasmeen Powers MD Unavailable [phone] Reason for Visit * Reason Onset Date Comments Call Back 11/04/2021 Alex is request ing call back to go over lab results Critical Values 11/04/2021 Encounter Details Date Type Department Care Team ([facility] Contact Info) Description 11/04/2021 Telephone [facility] [address] [address] Freddy Craft MD [address] [place] [address] [address] [place] [address] Call Back (Alex is requesting call back [...] 11/05/2021 9:01 AM CDT Differential faxed to [facility] to be added on to recent labs with WBC 1.93. ADDENDUM: Records requested from [facility] re: all labs from 10/2021 * Telephone Encounter - Laurie Carmen LPN - 11/05/2021 8:46 AM CDT DATE: 11/05/2021 TIME OF RECEIPT FROM LAB: 8:46 ORDERING PROVIDER: Elio LAB TEST: wbc LAB VALUE: 1.93 RESULTS GIVEN WITH READ-BACK TO (PROVIDER): Catia Su TIME LAB VALUE REPORTED TO PROVIDER: 8:46 * Telephone Encounter - Loren Adan - 11/04/2021 4:55 PM CDT M [facility] Call Center Phone Message May a detailed message be left on voicemail: yes Reason for Call: Other: Alex from [facility] is requesting a call back to go over patient's labs, they found that patient has a low white cell count. Please call them back at [phone], thank you! 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, 07/10/16 rectal swab 06/21/2016 06/21/2016 documented as of this encounter Care Teams Tennis Ball Cover Cementer Relationship Specialty Start Date End Date Rubén Boyle MD PCP - General Family Practice 03/08/16 Pamela Blanco MAT TESTER [facility] [address] [place], [place] 982307 Referring Physician 07/13/16 Pedro Segura MD [facility] [address] [place], [place] 915237 Nephrology 10/03/16 Freddy Craft MD 516 [facility] [address] [place] [address] Assigned Gastroenterology Provider 02/08/20 Abdifatha Van MD [address] [place] [address] Assigned Nephrology Provider 07/13/20 11/07/23 Nicole Carranza NP 420 [facility] [address] [place] [address] Assigned Heart and Vascular Provider 01/09/22 Andressa Ruiz PA-C 420 [facility] 803 [place] [address] Physician Line And Frame Poler Endocrinology, Diabetes, and Metabolism 03/01/22 Ashlyn Storm, RN [facility] 711 [place] [address] Registered Nurse 03/03/22 09/15/22 Rubén Gunter [facility] [address] [place] [address] Assigned MTM Pharmacist 02/27/22 Andressa Ruiz PA-C 420 [facility] 803 [place] [address] Assigned Endocrinology Provider 03/13/22 09/07/23 Suzan Harry MD [address] [place] [address] Nephrology 06/30/23 Yasmeen Powers MD 500 [place] [address] Nephrology 10/24/23 Yasmeen Powers MD 500 [place] [address] Assigned Nephrology Provider 11/08/23 documented as of this encounter
--- OUTSIDE RECORDS SUMMARY | 2024-01-26 22:28 | XMS_ITS | Encounter Summary ---
Author Organization [place] Address [address] [place] [address] Care Team Providers Care Staff Certified Nurse Midwife Name Role Phone Rubén Boyle MD Primary Care Provider Pamela Blanco PLASTERER APPRENTICE Unavailable Pedro Segura MD Unavailable Freddy Craft MD Unavailable [phone] Abdifatah Van MD Unavailable Nicole Carranza PLASTERER APPRENTICE Unavailable [phone] Andressa Ruiz-C Unavailable Ashlyn Storm RN Unavailable [phone] Rubén Gunter [facility] Unavailable Andressa Ruiz-C Unavailable Suzan Harry MD Unavailable [phone] Yasmeen Powers MD Unavailable [phone] Yasmeen Powers MD Unavailable [phone] Encounter Details Date Type Department Care Team (Late st Contact Info) Description 05/17/2022 External Order Results [facility] [address] [place] [address] Outside, Provider History of liver transplant (H) [...] PLATELETS & DIFFERENTIAL Routine 05/17/2022 3:24 PM VIGOUREUX PRINTER TACROLIMUS BY TANDEM MASS SPECTROMETRY Routine 05/17/2022 3:24 PM VIGOUREUX PRINTER MAGNESIUM Routine 05/17/2022 3:24 PM VIGOUREUX PRINTER HEPATIC FUNCTION PANEL Routine 05/17/2022 3:24 PM VIGOUREUX PRINTER History of liver transplant (H) BASIC METABOLIC PANEL Routine 05/17/2022 3:24 PM VIGOUREUX PRINTER History of liver transplant (H) documented in this encounter Results * Tacrolimus by Tandem Mass Spectrometry (05/17/2022 3:24 PM VIGOUREUX PRINTER) Tacrolimus(FK-5 06) (External) 7.8 5.0 - 15.0 ng/mL NON-INTERFACED (ONBASE SCANS) Blood 05/17/2022 3:24 PM VIGOUREUX PRINTER Narrative ERICKEZKayli PFT - 05/24/2022 2:19 PM VIGOUREUX PRINTER Verified by Pedrito Stallworth on 05/24/2022. Freddy Dumont MD LAB - BLOOD ORD ERABLES SAMANTHA PFT NON-INTERFACED (ONBASE SCANS) * (ABNORMAL) Magnesium (05/17/2022 3:24 PM VIGOUREUX PRINTER) Magnesium (External) 1.4(L) 1.5 - 2.6 mg/dL NON-INTERFACED (ONBASE SCANS) Blood BLOOD SPECIMEN / Unknown 05/17/2022 3:24 PM VIGOUREUX PRINTER Narrative SAMANTHA PFT - 05/19/2022 2:28 PM VIGOUREUX PRINTER Verified by Melissa Otto on 05/19/2022. Freddy Dumont MD LAB - BLOOD ORD ERABLES SAMANTHA PFT NON-INTERFACED (ONBASE SCANS) * (ABNORMAL) CBC with Platelets & Differential (05/17/2022 3:24 PM VIGOUREUX PRINTER) WBC Count (External) 4.48(L) 4.50 - 11.00 [...] BLOOD SPECIMEN / Unknown 05/17/2022 3:24 PM VIGOUREUX PRINTER Narrative SAMANTHA PFT - 05/19/2022 2:28 PM VIGOUREUX PRINTER Verified by Melissa Otto on 05/19/2022. Freddy Dumont MD LAB - BLOOD ORD ERABLES SAMANTHA PFT NON-INTERFACED (ONBASE SCANS) * (ABNORMAL) Basic metabolic panel (05/17/2022 3:24 PM VIGOUREUX PRINTER) Sodium (External) 137 135 - 149 mmol/L [...] NON-INTERFACED (ONBASE SCANS) Blood 05/17/2022 3:24 PM VIGOUREUX PRINTER Narrative BREEZE PFT - 05/19/2022 2:28 PM VIGOUREUX PRINTER Verified by Melissa Otto on 05/19/2022. Freddy Dumont MD LAB - BLOOD TRA SAMANTHA PFT NON-INTERFACED (ONBASE SCANS) * (ABNORMAL) Hepatic function panel (05/17/2022 3:24 PM VIGOUREUX PRINTER) Protein Total (External) 6.7 6.0 - 8.3 [...] D (ONBASE SCANS) Blood 05/17/2022 3:24 PM VIGOUREUX PRINTER Narrative BREEZE PFT - 05/19/2022 2:28 PM VIGOUREUX PRINTER Verified by Melissa Otto on 05/19/2022. Freddy Dumont MD LAB - BLOOD TRA SAMANTHA PFT NON-INTERFACED (ONBASE SCANS) documented in this encounter Visit Diagnoses Diagnosis History of liver transplant (H) Liver replaced by transplant documented in this encounter Additional Health Concerns Infection Onset Date Last Indicated Resolved Time 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/16 urine, 07/10/16 rectal swab 06/21/2016 06/21/2016 documented as of this encounter Care Teams Staff Certified Nurse Midwife Relationship Specialty Start Date End Date Boyle, Frank, MD PCP - General Family Practice 03/08/16 Pamela Blanco PLASTERER APPRENTICE [facility] [address] [place] [address] Referring Physician 07/13/16 Pedro Segura MD [facility] [address] [place], [place] 6722[address] Nephrology 10/03/16 Freddy Craft MD 516 [facility] [place], [place] 005065 Assigned Gastroenterology Provider 02/08/20 Abdifatah Van MD 717 [facility] [address] [place], [place] 439804 Assigned Nephrology Provider 07/13/20 11/07/23 Nicole Carranza NP 420 [facility] 508 [place], [place] 402415 Assigned Heart and Vascular Provider 01/09/22 Andressa Ruiz PA-C 420 [facility] 803 [place], [place] [address] Physician Laborer Hoisting Endocrinology, Diabetes, and Metabolism 03/01/22 Ashlyn Storm, RN [facility] 711 [place], [place] 8[address]344 Registered Nurse 03/03/22 09/15/22 Rubén Gunter [facility] 909 [place] [address] Assigned MTM Pharmacist 02/27/22 Andressa Ruiz PA-C 420 [facility] 803 [place] [address] Assigned Endocrinology Provider 03/13/22 09/07/23 Suzan Harry MD 420 [place] [address] Nephrology 06/30/23 Yasmeen Powers MD 500 [place] [address] Nephrology 10/24/23 Yasmeen Powers MD 500 [place] [address] Assigned Nephrology Provider 11/08/23 documented as of this encounter
--- OUTSIDE RECORDS SUMMARY | 2024-01-26 22:29 | XMS_ITS | Encounter Summary ---
Author Organization [place] Address [address] [place] [address]. [place] [address] Care Team Providers Care Director And Professor Name Role Phone Rubén Boyle MD Primary Care Provider [phone] Pamela Blanco SAWMILL RELIEF WORKER Unavailable [phone] Pedro Segura MD Unavailable Freddy Craft MD Unavailable [phone] Abdifatah Van MD Unavailable Nicole Carranza SAWMILL RELIEF WORKER Unavailable Andressa Ruiz-C Unavailable Ashlyn Storm RN Unavailable [phone] Rubén Gunter [facility] Unavailable Andressa Ruiz-C Unavailable Suzan Harry MD Unavailable [phone] Yasmeen Powers MD Unavailable [phone] Yasmeen Powers MD Unavailable [phone] Encounter Details Date Type Department Care Team (Late st Contact Info) Description 10/02/2020 [facility] [address] [place] [address] Lilliam Collier Social History Tobacco Use [...] as of this encounter Care Teams Director And Professor Relationship Specialty Start Date End Date Rubén Boyle MD PCP - General Family Practice 03/08/16 Pamela Blanco NP [facility] [address] [place], [place] 0[address]137 Referring Physician 07/13/16 Pedro Segura MD [facility] [address] [place], [place] 151927 Nephrology 10/03/16 Freddy Craft MD 516 [facility] 2A [place], [place] 840345 Assigned Gastroenterology Provider 02/08/20 Abdifatah Van MD 717 [facility] [address] [place] [address] Assigned Nephrology Provider 07/13/20 11/07/23 Nicole Carranza NP 420 [facility] 508 [place] [address] Assigned Heart and Vascular Provider 01/09/22 Andressa Ruiz PA-C 420 [facility] 803 [place] [address] Physician Mechanical Meter Tester Endocrinology, Diabetes, and Metabolism 03/01/22 Ashlyn Storm, RN [facility] 711 [place] [address] Registered Nurse 03/03/22 09/15/22 Rubén Gunter [facility] [address] [place] [address] Assigned MTM Pharmacist 02/27/22 Andressa Ruiz PA-C 420 [facility] 803 [place] [address] Assigned Endocrinology Provider 03/13/22 09/07/23 Suzan Harry MD 420 [place] [address] Nephrology 06/30/23 Yasmeen Powers MD 500 [place] [address] Nephrology 10/24/23 Yasmeen Powers MD 500 [place] [address] Assigned Nephrology Provider 11/08/23 documented as of this encounter
--- OUTSIDE RECORDS SUMMARY | 2024-01-26 22:29 | XMS_ITS | Encounter Summary ---
Author Organization [place] Address [address] [place] [address] Care Team Providers Care Decontaminator Name Role Phone Rubén Boyle MD Primary Care Provider Pamela Blanco SURVEYING TEACHER Unavailable Pedro Segura MD Unavailable [phone] Freddy Craft MD Unavailable Adbifatah Van MD Unavailable Nicole Carranza SURVEYING TEACHER Unavailable [phone] Andressa Ruiz-C Unavailable Ashlyn Storm RN Unavailable Rubén Gunter [facility] Unavailable Andressa Ruiz-C Unavailable Suzan Harry MD Unavailable [phone] Yasmeen Powers MD Unavailable [phone] Yasmeen Powers MD Unavailable [phone] Encounter Details Date Type Department Care Team (Late st Contact Info) Description 09/24/2020 External Order Results [facility] 909 [place] [address] Outside, Provider Alcohol abuse, in [...] documented as of this encounter Care Teams Decontaminator Relationship Specialty Start Date End Date Rubén Boyle MD PCP - General Family Practice 03/08/16 Pamela Blanco SURVEYING TEACHER [facility] [address] [place] [address] Referring Physician 07/13/16 Pedro Segura MD [facility] [address] [place], [place] 260587 Nephrology 10/03/16 Freddy Craft MD 516 [facility] 2A [place], [place] [address] Assigned Gastroenterology Provider 02/08/20 Abdifatah Van MD 717 [facility] [address] [place], [place] [address] Assigned Nephrology Provider 07/13/20 11/07/23 Nicole Carranza NP 420 [facility] 508 [place], [place] 586[address] Assigned Heart and Vascular Provider 01/09/22 Andressa Ruiz PA-C 420 [facility] 803 [place], [place] 9015[address] Physician Rn House Supervisor Endocrinology, Diabetes, and Metabolism 03/01/22 Ashlyn Storm, RN [facility] 711 [place] [address] Registered Nurse 03/03/22 09/15/22 Rubén Gunter [facility] 909 [place], [place] [address] Assigned MTM Pharmacist 02/27/22 Andressa Ruiz PA-C 420 [facility] 803 [place], [place] [address] Assigned Endocrinology Provider 03/13/22 09/07/23 Suzan Harry MD 420 [place], [place] [address] Nephrology 06/30/23 Yasmeen Powers MD 500 [place], [place] 532075 Nephrology 10/24/23 Yasmeen Powers MD 500 [place], [place] 071325 Assigned Nephrology Provider 11/08/23 documented as of this encounter
--- OUTSIDE RECORDS SUMMARY | 2024-01-26 22:29 | XMS_ITS | Encounter Summary ---
Author Organization [place] Address [address] [place] [address] Care Team Providers Care Switchman Name Role Phone Rubén Boyle MD Primary Care Provider Pamela Blanco GLOVE CLEANER Unavailable Pedro Segura MD Unavailable [phone] Freddy Craft MD Unavailable Abdifatah Van MD Unavailable Nicole Carranza GLOVE CLEANER Unavailable [phone] Andressa Ruiz-C Unavailable Ashlyn Storm RN Unavailable [phone] Rubén Gunter [facility] Unavailable Andressa Ruiz-C Unavailable Suzan Harry MD Unavailable [phone] Yasmeen Powers MD Unavailable [phone] Yasmeen Powers MD Unavailable [phone] Encounter Details Date Type Department Care Team (Late st Contact Info) Description 08/11/2021 External Order Results [facility] [address] [place] [address] Outside, Provider Lipid screening; Liver replaced by [...] - BLOOD ORD ERABLES Performing Organization Address City/[facility]/ZIP Co de Phone Number BREEZE PFT NON-INTERFACED [...] - 08/16/2021 3:06 PM CDT Verified by eMlissa Otto on 08/16/2021. Freddy Dumont MD LAB - BLOOD ORD ERABLES Performing Organization Address [facility] Co de Phone Number [...] - BLOOD ORD ERABLES Performing Organization Address City/State/[facility] Co de Phone Number [...] documented as of this encounter Care Teams Switchman Relationship Specialty Start Date End Date Rubén Boyle MD PCP - General Family Practice 03/08/16 Pamela Blanco NP [facility] [address] [place], [place] 69[address] Referring Physician 07/13/16 Pedro Segura MD [facility] [address] [place], [place] 1427[address] Nephrology 10/03/16 Freddy Craft MD 516 [facility] 2[facility] [place], [place] [address] Assigned Gastroenterology Provider 02/08/20 Abdifatah Van MD [address] [facility] [address] [place] [address] Assigned Nephrology Provider 07/13/20 11/07/23 Nicole Carranza NP 420 [facility] [address] [place], [place] [address]85 Assigned Heart and Vascular Provider 01/09/22 Andressa Ruiz PA-C 420 [facility] 803 [place] [address] Physician Tyre Fitter Endocrinology, Diabetes, and Metabolism 03/01/22 Ashlyn Storm, RN [facility] 711 [place] [address] Registered Nurse 03/03/22 09/15/22 Rubén Gunter [facility] [address] [place] [address] Assigned MTM Pharmacist 02/27/22 Andressa Ruiz PA-C 420 [facility] 803 [place] [address] Assigned Endocrinology Provider 03/13/22 09/07/23 Suzan Harry MD 420 [place] [address] Nephrology 06/30/23 Yasmeen Powers MD 500 [place] [address] Nephrology 10/24/23 Yasmeen Powers MD 500 [place] [address] Assigned Nephrology Provider 11/08/23 documented as of this encounter
--- OUTSIDE RECORDS SUMMARY | 2024-01-26 22:29 | XMS_ITS | Encounter Summary ---
Author Organization [place] Address [address] [place] [address] Care Team Providers Care Chef French Name Role Phone Rubén Boyle MD Primary Care Provider [phone] Pamela Blanco CATTLE SORTER Unavailable Pedro Segura MD Unavailable Freddy Craft MD Unavailable Abdifatah Van MD Unavailable Nicole Carranza CATTLE SORTER Unavailable [phone] Andressa Ruiz-C Unavailable Ashlyn Storm RN Unavailable [phone] Rubén Gunter [facility] Unavailable Andressa Ruiz-C Unavailable Suzan Harry MD Unavailable Yasmeen Powers MD Unavailable [phone] Yasmeen Powers MD Unavailable [phone] Encounter Details Date Type Department Care Team (Late st Contact Info) Description 10/23/2021 External Order Results [facility] [address] [place] [address] Outside, Provider Social History Tobacco Use Types [...] documented as of this encounter Care Teams Chef French Relationship Specialty Start Date End Date Rubén Boyle MD PCP - General Family Practice 03/08/16 Pamela Blanco CATTLE SORTER [facility] [address] [place] [address] Referring Physician 07/13/16 Pedro Segura MD [facility] [address] [place] [address] Nephrology 10/03/16 Freddy Craft MD 516 [facility] 2A [place], [place] [address] Assigned Gastroenterology Provider 02/08/20 Abdifatah Van MD 717 [facility] [address] [place], [place] [address] Assigned Nephrology Provider 07/13/20 11/07/23 Nicole Carranza NP 420 [facility] 508 [place] [address] Assigned Heart and Vascular Provider 01/09/22 Andressa Ruiz PA-C 420 [facility] 803 [place] [address] Physician Shift Mechanic Endocrinology, Diabetes, and Metabolism 03/01/22 Ashlyn Storm, RN [facility] 711 [place] [address] Registered Nurse 03/03/22 09/15/22 Rubén Gunter [facility] [address] [place] [address] Assigned MTM Pharmacist 02/27/22 Andressa Ruiz PA-C 420 [facility] 803 [place] [address] Assigned Endocrinology Provider 03/13/22 09/07/23 Suzan Harry MD [address] [place] [address] Nephrology 06/30/23 Yasmeen Powers MD 500 [place] [address] Nephrology 10/24/23 Yasmeen Powers MD 500 [place] [address] Assigned Nephrology Provider 11/08/23 documented as of this encounter
--- OUTSIDE RECORDS SUMMARY | 2024-01-26 22:29 | XMS_ITS | Encounter Summary ---
Author Organization [facility] Address [address] [place] [address] Care Team Providers Care Geriatric Nurse Assistant Name Role Phone Rubén Boyle MD Primary Care Provider Pamela Blanco GRADE RECORDER Unavailable Pedro Segura MD Unavailable [phone] Freddy Craft MD Unavailable [phone] Abdifatah Van MD Unavailable Nicole Carranza GRADE RECORDER Unavailable [phone] Andressa Ruiz-C Unavailable Ashlyn tSorm RN Unavailable Rubén Gunter [facility] Unavailable Andressa Ruiz-C Unavailable Suzan Harry MD Unavailable [phone] Yasmeen Powers MD Unavailable [phone] Yasmeen Powers MD Unavailable [phone] Encounter Details Date Type Department Care Team (Late st Contact Info) Description 01/28/2021 External Order Results [facility] [address] [place] [address] Outside, Provider Lipid screening; Liver replaced by [...] - URINE ORD ERALASHAE Performing Organization Address [facility] Co de Phone Number [...] - BLOOD ORD ERABLES Performing Organization Address City/[facility]/ZIP Co de Phone Number ERICKEZE PFT NON-INTERFACED [...] documented as of this encounter Care Teams Geriatric Nurse Assistant Relationship Specialty Start Date End Date Rubén Boyle MD PCP - General Family Practice 03/08/16 Pamela Blanco NP [facility] [address] [place], [place] 8588[address] Referring Physician 07/13/16 Pedro Segura MD [facility] [address] [place], [place] [address] Nephrology 10/03/16 Freddy Craft MD [address] [facility] [address] [place], [place] [address] Assigned Gastroenterology Provider 02/08/20 Abdifatah Van MD [address] [facility] [address] [place] [address] Assigned Nephrology Provider 07/13/20 11/07/23 Nicole Carranza NP 420 [facility] 508 [place], [place] [address]85 Assigned Heart and Vascular Provider 01/09/22 Andressa Ruiz PA-C 420 [facility] 803 [place], [place] [address] Physician Calender Wind Up Tender Endocrinology, Diabetes, and Metabolism 03/01/22 Ashlyn Storm, RN [facility] 711 [place] [address] Registered Nurse 03/03/22 09/15/22 Rubén Gunter [facility] 909 [place] [address] Assigned MTM Pharmacist 02/27/22 Andressa Ruiz PA-C 420 [facility] 803 [place], [place] 450365 Assigned Endocrinology Provider 03/13/22 09/07/23 Suzan Harry MD 420 [place], [place] 399555 Nephrology 06/30/23 Yasmeen Powers MD 500 [place] [address] Nephrology 10/24/23 Yasmeen Powers MD 500 [place] [address] Assigned Nephrology Provider 11/08/23 documented as of this encounter
--- OUTSIDE RECORDS SUMMARY | 2024-01-26 22:29 | XMS_ITS | Encounter Summary ---
Author Organization [facility] Address [address] [place] [address] Care Team Providers Care Leasing Coordinator Name Role Phone Rubén Boyle MD Primary Care Provider Pamela Blanco HOUSE PAINTING INSTRUCTOR Unavailable [phone] Pedro Segura MD Unavailable [phone] Freddy Craft MD Unavailable Abdifatah Van MD Unavailable Nicole Carranza HOUSE PAINTING INSTRUCTOR Unavailable [phone] Andressa Ruiz-C Unavailable [phone] Ashlyn Storm RN Unavailable Rubén Gunter [facility] Unavailable Andressa Ruiz-C Unavailable Suzan Harry MD Unavailable [phone] Yasmeen Powers MD Unavailable [phone] Yasmeen Powers MD Unavailable [phone] Encounter Details Date Type Department Care Team (Late st Contact Info) Description 10/22/2021 External Order Results [facility] [address] [place] [address] Outside, Provider Social History Tobacco Use Types [...] documented as of this encounter Care Teams Leasing Coordinator Relationship Specialty Start Date End Date Rubén Boyle MD PCP - General Family Practice 03/08/16 Pamela Blanco HOUSE PAINTING INSTRUCTOR [facility] [address] [place] [address] Referring Physician 07/13/16 Pedro Segura MD [facility] [address] [place] [address] Nephrology 10/03/16 Freddy Craft MD 516 [facility] [place], [place] [address] Assigned Gastroenterology Provider 02/08/20 Abdifatah Van MD 717 [facility] [address] [place], [place] 4[address]44 Assigned Nephrology Provider 07/13/20 11/07/23 Nicole Carranza NP 420 [facility] 508 [place] [address] Assigned Heart and Vascular Provider 01/09/22 Andressa Ruiz PA-C 420 [facility] 803 [place] [address] Physician Investment Recovery Technician Endocrinology, Diabetes, and Metabolism 03/01/22 Ashlyn Storm, RN [facility] 711 [place] [address] Registered Nurse 03/03/22 09/15/22 Rubén Gunter [facility] [address] [place] [address] Assigned MTM Pharmacist 02/27/22 Andressa Ruiz PA-C 420 [facility] 803 [place] [address] Assigned Endocrinology Provider 03/13/22 09/07/23 Suzan Harry MD [address] [place] [address] Nephrology 06/30/23 Yasmeen Powers MD 500 [place] [address] Nephrology 10/24/23 Yasmeen Powers MD 500 [place] [address] Assigned Nephrology Provider 11/08/23 documented as of this encounter
--- OUTSIDE RECORDS SUMMARY | 2024-01-26 22:29 | XMS_ITS | Encounter Summary ---
Author Organization [facility] Address [address] [place] [address] Care Team Providers Care Food And Beverage Attendant Name Role Phone Rubén Boyle MD Primary Care Provider Pamela Blanco EXTENSION SERVICE SPECIALIST IN CHARGE Unavailable Pedro Segura MD Unavailable [phone] Freddy Craft MD Unavailable Abdifatah Van MD Unavailable Nicole Carranza EXTENSION SERVICE SPECIALIST IN CHARGE Unavailable [phone] Andressa Ruiz PA-C Unavailable Ashlyn Storm RN Unavailable [phone] Rubén Gunter [facility] Unavailable Andressa Ruiz-C Unavailable Suzan Harry MD Unavailable [phone] Yasmeen Powers MD Unavailable [phone] Yasmeen Powers MD Unavailable [phone] Encounter Details Date Type Department Care Team (Late st Contact Info) Description 09/16/2020 [facility] [address] [place] [address] Calli Hall RN Social History [...] documented as of this encounter Care Teams Food And Beverage Attendant Relationship Specialty Start Date End Date Rubén Boyle MD PCP - General Family Practice 03/08/16 Pamela Blanco EXTENSION SERVICE SPECIALIST IN CHARGE [facility] [address] [place], [place] 178607 Referring Physician 07/13/16 Pedro Segura MD [facility] [address] [place], [place] 9633[address] Nephrology 10/03/16 Freddy Craft MD 516 [facility] [address] [place], [place] [address]85 Assigned Gastroenterology Provider 02/08/20 Abdifatah Van MD 717 [facility] [address] [place], [place] [address] Assigned Nephrology Provider 07/13/20 11/07/23 Nicole Carranza NP 420 [facility] 508 [place], [place] [address] Assigned Heart and Vascular Provider 01/09/22 Andressa Ruiz PA-C 420 [facility] 803 [place], [place] [address] Physician Traffic Ii Manager Endocrinology, Diabetes, and Metabolism 03/01/22 Ashlyn Storm, RN [facility] 711 [place], [place] 339064 Registered Nurse 03/03/22 09/15/22 Rubén Gunter [facility] [address] [place] [address] Assigned MTM Pharmacist 02/27/22 Andressa Ruiz PA-C 420 [facility] 803 [place], [place] 9[address]85 Assigned Endocrinology Provider 03/13/22 09/07/23 Suzan Harry MD 420 [place] [address] Nephrology 06/30/23 Yasmeen Powers MD 500 [place] [address] Nephrology 10/24/23 Yasmeen Powers MD 500 [place] [address] Assigned Nephrology Provider 11/08/23 documented as of this encounter
--- OUTSIDE RECORDS SUMMARY | 2024-01-26 22:29 | XMS_ITS | Encounter Summary ---
Author Organization [facility] Address [address] [place] [address] Care Team Providers Care Merchandise For Resale Purchasing Agent Name Role Phone Rubén Boyle MD Primary Care Provider Pamela Blanco SCREENING REPRESENTATIVE Unavailable Pedro Segura MD Unavailable Freddy Craft MD Unavailable Abdifatah Van MD Unavailable Nicole Carranza SCREENING REPRESENTATIVE Unavailable [phone] Andressa Ruiz-C Unavailable Ashlyn Storm RN Unavailable Rubén Gunter [facility] Unavailable Andressa Ruiz-C Unavailable [phone] Suzan Harry MD Unavailable [phone] Yasmeen Powers MD Unavailable [phone] Yasmeen Powers MD Unavailable [phone] Encounter Details Date Type Department Care Team (Late st Contact Info) Description 06/26/2020 [facility] 909 [place] [address] Laurie Carmen LPN Social History [...] documented as of this encounter Care Teams Merchandise For Resale Purchasing Agent Relationship Specialty Start Date End Date Rubén Boyle MD PCP - General Family Practice 03/08/16 Pamela Blanco SCREENING REPRESENTATIVE [facility] [address] [place], [place] 47[address]97 Referring Physician 07/13/16 Pedro Segura MD [facility] [address] [place], [place] [address] Nephrology 10/03/16 Freddy Craft MD 516 [facility] [address] [place], [place] 3384[address] Assigned Gastroenterology Provider 02/08/20 Abdifatah Van MD 717 [facility] [address] [place], [place] 86[address] Assigned Nephrology Provider 07/13/20 11/07/23 Nicole Carranza NP 420 [facility] 508 [place], [place] 56[address]85 Assigned Heart and Vascular Provider 01/09/22 Andressa Ruiz PA-C 420 [facility] 803 [place], [place] 2[address] Physician Calculus Professor Endocrinology, Diabetes, and Metabolism 03/01/22 Ashlyn Storm, RN [facility] 711 [place], [place] 409474 Registered Nurse 03/03/22 09/15/22 Rubén Gunter [facility] [address] [place] [address] Assigned MTM Pharmacist 02/27/22 Andressa Ruiz PA-C 420 [facility] 803 [place], [place] 7[address]305 Assigned Endocrinology Provider 03/13/22 09/07/23 Suzan Harry MD 420 [place] [address] Nephrology 06/30/23 Yasmeen Powers MD 500 [place] [address] Nephrology 10/24/23 Yasmeen Powers MD 500 [place] [address] Assigned Nephrology Provider 11/08/23 documented as of this encounter
--- OUTSIDE RECORDS SUMMARY | 2024-01-26 22:29 | XMS_ITS | Encounter Summary ---
Author Organization [facility] Address [address] [place] [address] Care Team Providers Care Steel Unloader Name Role Phone Rubén Boyle MD Primary Care Provider Pamela Blanco INSIGHT DIRECTOR Unavailable Pedro Segura MD Unavailable [phone] Freddy Craft MD Unavailable Abdifatah Van MD Unavailable Nicole Carranza INSIGHT DIRECTOR Unavailable [phone] Andressa Ruiz-C Unavailable [phone] Ashlyn Storm RN Unavailable [phone] Rubén Gunter [facility] Unavailable Andressa Ruiz-C Unavailable Suzan Harry MD Unavailable [phone] Yasmeen Powers MD Unavailable [phone] Yasmeen Powers MD Unavailable [phone] Encounter Details Date Type Department Care Team (Late st Contact Info) Description 09/14/2021 External Order Results [facility] [address] [place] [address] Outside, Provider Status post kidney transplant; History [...] MD LAB - BLOOD ORDERABL ES [facility] NON-INTERFACED (ONBASE SCANS) * (ABNORMAL) Basic metabolic [...] documented as of this encounter Care Teams Steel Unloader Relationship Specialty Start Date End Date Rubén Boyle MD PCP - General Family Practice 03/08/16 Pamela Blanco NP [facility] [address] [place], [place] [address] Referring Physician 07/13/16 Pedro Segura MD [facility] [address] [place] [address] Nephrology 10/03/16 Freddy Craft MD 516 [facility] [address] [place], [place] 4570[address] Assigned Gastroenterology Provider 02/08/20 Abdifatah Van MD [address] [facility] [address] [place] [address] Assigned Nephrology Provider 07/13/20 11/07/23 Nicole Carranza NP 420 [facility] 508 [place] [address] Assigned Heart and Vascular Provider 01/09/22 Andressa Ruiz PA-C 420 [facility] 803 [place], [place] 136165 Physician Market Researcher Endocrinology, Diabetes, and Metabolism 03/01/22 Ashlyn Storm, RN [facility] 711 [place], [place] [address]684 Registered Nurse 03/03/22 09/15/22 Rubén Gunter [facility] 909 [place], [place] 072555 Assigned MTM Pharmacist 02/27/22 Andressa Ruiz PA-C 420 [facility] 803 [place], [place] 457635 Assigned Endocrinology Provider 03/13/22 09/07/23 Suzan Harry MD 420 [place] [address] Nephrology 06/30/23 Yasmeen Powers MD 500 [place], [place] 463905 Nephrology 10/24/23 Yasmeen Powers MD 500 [place] [address] Assigned Nephrology Provider 11/08/23 documented as of this encounter
--- OUTSIDE RECORDS SUMMARY | 2024-01-26 22:29 | XMS_ITS | Encounter Summary ---
Author Organization [facility] Address [address] [place] [address] Care Team Providers Care Drop Wire Aligner Name Role Phone Rubén Boyle MD Primary Care Provider Pamela Blanco CHEMISTRY INSTRUCTOR Unavailable [phone] Pedro Segura MD Unavailable [phone] Freddy Craft MD Unavailable [phone] Abdifatah Van MD Unavailable Nicole Carranza CHEMISTRY INSTRUCTOR Unavailable [phone] Andressa Ruiz-C Unavailable Ashlyn Storm RN Unavailable Rubén Gunter [facility] Unavailable Andressa Ruiz-C Unavailable Suzan Harry MD Unavailable [phone] Yasmeen Powers MD Unavailable [phone] Yasmeen Powers MD Unavailable [phone] Encounter Details Date Type Department Care Team (Late st Contact Info) Description 08/06/2020 [facility] 9[address] [place] [address] Lashanda Hsieh, [facility] Social History Tobacco Use Types [...] documented as of this encounter Care Teams Drop Wire Aligner Relationship Specialty Start Date End Date Rubén Boyle MD PCP - General Family Practice 03/08/16 Pamela Blanco NP [facility] [address] [place], [place] [address]287 Referring Physician 07/13/16 Pedro Segura MD [facility] [address] [place], [place] 652397 Nephrology 10/03/16 Freddy Craft MD [address] [place] [address] 514905 Assigned Gastroenterology Provider 02/08/20 Abdifatah Van MD 717 [facility] [address] [place] [address] Assigned Nephrology Provider 07/13/20 11/07/23 Nicole Carranza NP 420 [facility] 508 [place], [place] [address]135 Assigned Heart and Vascular Provider 01/09/22 Andressa Ruiz PA-C 420 [facility] 803 [place], [place] [address]215 Physician Consumer Insights Intern Endocrinology, Diabetes, and Metabolism 03/01/22 Ashlyn Storm RN [facility] 711 [place], [place] [address] Registered Nurse 03/03/22 09/15/22 Rubén Gunter [facility] 909 [place], [place] [address]25 Assigned MTM Pharmacist 02/27/22 Andressa Ruiz PA-C 420 [facility] 803 [place], [place] 250575 Assigned Endocrinology Provider 03/13/22 09/07/23 Suzan Harry MD 420 [place], [place] [address]35 Nephrology 06/30/23 Yasmeen Powers MD 500 [place], [place] 309635 Nephrology 10/24/23 Yasmeen Powers MD 500 [place] [address] Assigned Nephrology Provider 11/08/23 documented as of this encounter
--- OUTSIDE RECORDS SUMMARY | 2024-01-26 22:29 | XMS_ITS | Encounter Summary ---
Author Organization [facility] Address [address] [place] [address] Care Team Providers Care Outsole Beveler Name Role Phone Rubén Boyle MD Primary Care Provider [phone] Pamela Blanco RAILROAD TRACK INSPECTOR Unavailable Pedro Segura MD Unavailable Freddy Craft MD Unavailable Abdifatah Van MD Unavailable Nicole Carranza RAILROAD TRACK INSPECTOR Unavailable [phone] Andressa Ruiz-C Unavailable [phone] Ashlyn Storm RN Unavailable Rubén Gunter [facility] Unavailable Andressa Ruiz-C Unavailable Suzan Harry MD Unavailable [phone] Yasmeen Powers MD Unavailable [phone] Yasmeen Powers MD Unavailable [phone] Encounter Details Date Type Department Care Team (Late st Contact Info) Description 10/26/2021 External Order Results [facility] [address] [place] [address] Outside, Provider Social History Tobacco Use Types [...] - BLOOD ORDERABL ES Performing Organization Address [facility] Co de Phone Number ERICKEZE PFT NON-INTERFACED (ONBASE SCANS) * (ABNORMAL) Troponin I (10/25/2021 6:55 AM CDT) Troponin I (External) 0.07(H) 0.01 - 0.04 ng/mL NON-INTERFACED (ONBASE SCANS) Blood 10/25/2021 6:55 AM CDT Narrative BREEZE PFT - 11/13/2021 9:26 AM CDT Verified by Pedrito Stallworth on 11/12/2021. [place] BourgeoisYony LAB - BLOOD ORDERABL ES Performing Organization Address [facility] Co de Phone Number AMNAE PFT NON-INTERFACED [...] - BLOOD ORDERABL ES Performing Organization Address [facility] Co de Phone Number SAMANTHA PFT [...] - BLOOD ORDERABL ES Performing Organization Address [facility]/ZIP Co de Phone Number SAMANTHA PFT NON-INTERFACED [...] - BLOOD ORDERABL ES Performing Organization Address [facility]/ZIP Co de Phone Number BREEZE PFT NON-INTERFACED (ONBASE SCANS) * (ABNORMAL) External Lab Results (10/24/2021 3:53 PM CDT) Scan Lab Results (External) see scan(A) NON-INTERFACE D (ONBASE SCANS) Comment:CDIFF, C Diff. Tox 10/24/2021 3:53 PM CDT Narrative BREEZE PFT - 11/13/2021 9:26 AM CDT Verified by Pedrito Stallworth on 11/13/2021. [place] Bhakta LABORATORY Performing Organization Address [facility] Co de Phone Number BREEZE PFT NON-INTERFACED (ONBASE SCANS) * (ABNORMAL) D dimer quantitative (10/24/2021 9:00 AM CDT) Pathologist [facility] D Dimer Quantitative (External) 0.90(H) 0.00 - 0.50 ug/mL NON-INTERFACE D (ONBASE SCANS) Blood 10/24/2021 9:00 AM CDT Narrative BREEZE PFT - 11/12/2021 3:44 PM CDT Verified by Brisa Jackson on 11/12/2021. Provider Outside LAB - BLOOD ORDERABL Performing Organization Address [facility] Co de Phone Number BREEZE PFT [...] CDT Verified by Pedrito Stallworth on 11/13/2021. Ch[place] Bhakta LAB - BLOOD ORDERABL ES Performing Organization Address [facility] de Phone Number AMNAE PFT NON-INTERFACED (ONBASE SCANS) * (ABNORMAL) CRP inflammation (10/24/2021 8:21 AM CDT) CRP Inflammation (External) 4.7(H) 0.5 - 1.0 MG/DL NON-INTERFACE D (ONBASE SCANS) Blood 10/24/2021 8:21 AM CDT Narrative BREEZE PFT - 11/13/2021 9:26 AM CDT Verified by Pedrito Stallworth on 11/13/2021. [place] Yony LAB - BLOOD ORDERABL ES Performing Organization Address [facility] de Phone Number AMNAE PFT NON-INTERFACED (ONBASE SCANS) * (ABNORMAL) Troponin I (10/24/2021 8:21 AM CDT) Troponin I (External) 0.13(H) 0.01 - 0.04 NG/ML NON-INTERFACED (ONBASE SCANS) Blood 10/24/2021 8:21 AM CDT Narrative BREEZE PFT - 11/13/2021 9:26 AM CDT Verified by Pedrito Stallworth on 11/13/2021. [place] Bhakta LAB - BLOOD ORDERABL ES Performing Organization Address [facility]/ZIP Co de Phone Number BREEZE PFT NON-INTERFACED (ONBASE SCANS) * Magnesium (10/24/2021 8:21 AM CDT) Magnesium (External) 1.5 1.5 - 2.6 mg/dL NON-INTERFACED (ONBASE SCANS) Blood 10/24/2021 8:21 AM CDT Narrative ERICKEZE PFT - 11/13/2021 9:26 AM CDT Verified by Pedrito Stallworth on 11/12/2021. Chino Vargasraes LAB - BLOOD ORDERABL ES Performing Organization Address [facility] Co de Phone Number ERICKEZE PFT NON-INTERFACED [...] - BLOOD ORDERABL ES Performing Organization Address [facility] Co de Phone Number AMNAE PFT NON-INTERFACED [...] - BLOOD ORDERABL ES Performing Organization Address [facility] Co de Phone Number BREEZE PFT NON-INTERFACED (ONBASE SCANS) * Lipase (10/23/2021 6:30 AM CDT) Lipase Level Low Scale (External) 28 23 - 300 U/L NON-INTERFACED (ONBASE SCANS) Blood 10/23/2021 6:30 AM CDT Narrative BREEZE PFT - 11/13/2021 9:26 AM CDT Verified by Pedrito Stallworth on 11/12/2021. [place] Bhakta LAB - BLOOD ORDERABL ES Performing Organization Address [facility] de Phone Number BREEZE PFT NON-INTERFACED (ONBASE SCANS) * Lactic acid whole blood (10/23/2021 6:30 AM CDT) Lactic Acid (External) 0.6 0.5 - 1.9 mmol/L NON-INTERFACED (ONBASE SCANS) Blood 10/23/2021 6:30 AM CDT Narrative BREEZE PFT - 11/13/2021 9:26 AM CDT Verified by Pedrito Stallworth on 11/12/2021. [place] Bhakta LAB - BLOOD ORDERABL ES Performing Organization Address [facility] Co de Phone Number BREEZE PFT NON-INTERFACED (ONBASE SCANS) * (ABNORMAL) CRP inflammation (10/23/2021 6:30 AM CDT) CRP Inflammation (External) 2.0(H) 0.5 - 1.0 mg/dL NON-INTERFACE D (ONBASE SCANS) Blood 10/23/2021 6:30 AM CDT Narrative BREEZE PFT - 11/13/2021 9:26 AM CDT Verified by Pedrito Stallworth on 11/12/2021. [place] Bhakta LAB - BLOOD ORDERABL ES Performing Organization Address [facility] de Phone Number AMNAE PFT NON-INTERFACED (ONBASE SCANS) * (ABNORMAL) Lactate Dehydrogenase (10/23/2021 6:30 AM CDT) LD (External) 665(H) 313 - 618 U/L NON-INTERFACED (ONBASE SCANS) Blood 10/23/2021 6:30 AM CDT Narrative AMNAE PFT - 11/13/2021 9:26 AM CDT Verified by Pedrito Stallworth on 11/12/2021. [place] BourgeoisYony LAB - BLOOD ORDERABL Performing Organization Address [facility] de Phone Number ERICKEZE PFT NON-INTERFACED [...] - BLOOD ORDERABL ES Performing Organization Address [facility] Co de Phone Number BREEZE PFT [...] - BLOOD ORDERABL ES Performing Organization Address [facility]/ZIP Co de Phone Number BREEZE PFT NON-INTERFACED [...] Verified by Brisa Jackson on 11/12/2021. Provider [facility] LAB - BLOOD ORDERABL ES Performing Organization Address [facility] Co de Phone Number BREEZE PFT NON-INTERFACED (ONBASE SCANS) * (ABNORMAL) Troponin I (10/22/2021 8:30 PM CDT) Troponin I (External) 0.92(H) 0.01 - 0.04 ng/ml NON-INTERFACED (ONBASE SCANS) Blood 10/22/2021 8:30 PM CDT Narrative BREEZE PFT - 11/13/2021 9:26 AM CDT Verified by Pedrito Stallworth on 11/13/2021. [place] Yony LAB - BLOOD ORDERABL Performing Organization Address [facility] de Phone Number BREEZE PFT NON-INTERFACED (ONBASE SCANS) * Lactic acid whole blood (10/22/2021 5:08 PM CDT) Lactic Acid (External) 1.4 0.5 - 1.9 mmol/L NON-INTERFACED (ONBASE SCANS) Blood 10/22/2021 5:08 PM CDT Narrative BREEZE PFT - 11/13/2021 9:26 AM CDT Verified by Pedrito Stallworth on 11/13/2021. [place] Yony LAB - BLOOD ORDERABL ES Performing Organization Address [facility] de Phone Number BREEZE PFT NON-INTERFACED (ONBASE SCANS) * (ABNORMAL) Troponin I (10/22/2021 5:08 PM CDT) Troponin I (External) 0.99(H) 0.01 - 0.04 ng/ml NON-INTERFACED (ONBASE SCANS) Blood 10/22/2021 5:08 PM CDT Narrative BREEZE PFT - 11/13/2021 9:26 AM CDT Verified by Pedrito Stallworth on 11/13/2021. [place] Bhakta [facility] Performing Organization Address [facility] de Phone Number ERICKEZE PFT NON-INTERFACED (ONBASE SCANS) * (ABNORMAL) Glucose (10/22/2021 3:30 PM CDT) Glucose (External) 166(H) 60 - 115 MG/DL NON-INTERFACED (ONBASE SCANS) Blood 10/22/2021 3:30 PM CDT Narrative BREEZE PFT - 11/13/2021 9:26 AM CDT Verified by Pedrito Stallworth on 11/13/2021. [place] Bhakta [facility] Performing Organization Address [facility] Phone Number ERICKEZE PFT NON-INTERFACED (ONBASE SCANS) * (ABNORMAL) Troponin I (10/22/2021 8:05 AM CDT) Troponin I (External) 0.33(H) 0.01 - 0.04 ng/mL NON-INTERFACED (ONBASE SCANS) Blood 10/22/2021 8:05 AM CDT Narrative BREEZE PFT - 11/13/2021 9:26 AM CDT Verified by Pedrito Stallworth on 11/12/2021. [place] Bhakta [facility] Performing Organization Address [facility] de Phone Number ERICKEZE PFT NON-INTERFACED [...] LAB - BLOOD ORDERABL Performing Organization Address [facility] de Phone Number BREEZE PFT NON-INTERFACED (ONBASE SCANS) * Lactic acid whole blood (10/22/2021 4:40 AM CDT) Lactic Acid (External) 1.4 0.5 - 1.9 mmol/L NON-INTERFACED (ONBASE SCANS) Blood 10/22/2021 4:40 AM CDT Narrative BREEZE PFT - 11/13/2021 9:26 AM CDT Verified by Pedrito Stallworth on 11/13/2021. [place] Bhakta [facility] Performing Organization Address [facility] de Phone Number ERICKEZE PFT NON-INTERFACED (ONBASE SCANS) * (ABNORMAL) Lactate Dehydrogenase (10/22/2021 4:40 AM CDT) LD (External) 637(H) 313 - 618 U/L NON-INTERFACED (ONBASE SCANS) Blood 10/22/2021 4:40 AM CDT Narrative BREEZE PFT - 11/13/2021 9:26 AM CDT Verified by Pedrito Stallworth on 11/12/2021. [place] Bhakta LAB - BLOOD ORDERABL Performing Organization Address [facility] de Phone Number BREEZE PFT NON-INTERFACED (ONBASE SCANS) * (ABNORMAL) N terminal pro BNP outpatient (10/22/2021 4:40 AM CDT) N-Terminal Pro BNP (External) 682(H) 0 - 125 PG/mL NON-INTERFACED (ONBASE SCANS) Blood 10/22/2021 4:40 AM CDT Narrative BREEZE PFT - 11/13/2021 9:26 AM CDT Verified by Pedrito Stallworth on 11/12/2021. [place] BourgeoisYony LAB - BLOOD ORDERABL ES Performing Organization Address [facility] de Phone Number ERICKEZE PFT NON-INTERFACED (ONBASE SCANS) * (ABNORMAL) Troponin I (10/22/2021 4:40 AM CDT) Pathologist [facility] Troponin I (External) 0.12(H) 0.01 - 0.04 ng/ml NON-INTERFACED (ONBASE SCANS) Blood 10/22/2021 4:40 AM CDT Narrative BREEZE PFT - 11/13/2021 9:26 AM CDT Verified by Pedrito Stallworth on 11/13/2021. [place] Bhakta LAB - BLOOD ORDERABL Performing Organization Address [facility] de Phone Number ERICKEZE PFT NON-INTERFACED [...] 4+(A) Negative NON-INTERFAC ED (ONBASE SCANS) Specific [place] Urine (External) 1.015 1.000 - 1.030 NON-INTERFAC [...] - URINE ORDERABL ES Performing Organization Address [facility]/ZIP Co de Phone Number BREEZE PFT NON-INTERFACED (ONBASE SCANS) * External Lab Results (10/22/2021 12:18 AM CDT) Scan Lab Results (External) Negative NON-INTERFACE D (ONBASE SCANS) Comment: Influenza A Influenza B 10/22/2021 12:1 8 AM CDT Narrative BREEZE PFT - 11/13/2021 9:26 AM CDT Verified by Pedrito Stallworth on 11/13/2021. [place] Bhakta LABORATORY Performing Organization Address [facility] de Phone Number BREEZE PFT NON-INTERFACED (ONBASE SCANS) * COVID-19 Virus (Coronavirus) by PCR (External Result) (10/21/2021 11:17 PM CDT) COVID-19 Virus by PCR (External Result) Negative Negative NON-INTERFACE D (ONBASE SCANS) 10/21/2021 11:1 7 PM CDT Narrative BREEZE PFT - 11/13/2021 9:26 AM CDT Verified by Pedrito Satllworth on 11/13/2021. [place] Yony LABORATORY Performing Organization Address [facility]/ZIP Co de Phone Number BREEZE PFT NON-INTERFACED (ONBASE SCANS) * (ABNORMAL) External Lab Results (10/21/2021 11:10 PM CDT) Scan Lab Results (External) <0.01(L) 0.01 - 0.03 % NON-INTERFACE D (ONBASE SCANS) Comment:Ethanol 10/21/2021 11:1 0 PM CDT Narrative BREEZE PFT - 11/13/2021 9:26 AM CDT Verified by Pedrito Stallworth on 11/13/2021. [place] Bhakta LABORAT[facility] Performing Organization Address [facility] Co de Phone Number BREEZE PFT [...] - BLOOD ORDERABL ES Performing Organization Address [facility] de Phone Number BREEZE PFT NON-INTERFACED (ONBASE SCANS) * Lipase (10/21/2021 11:10 PM CDT) Lipase Level (External) 39 29 - 300 U/L NON-INTERFACED (ONBASE SCANS) Blood 10/21/2021 11:1 0 PM CDT Narrative BREEZE PFT - 11/13/2021 9:26 AM CDT Verified by Pedrito Stallworth on 11/12/2021. [place] Yony LAB - BLOOD ORDERABL ES Performing Organization Address [facility] Co de Phone Number BREEZE PFT NON-INTERFACED (ONBASE SCANS) * (ABNORMAL) Lactic acid whole blood (10/21/2021 11:10 PM CDT) Lactic Acid (External) 3.0(H) 0.5 - 1.9 mmol/L NON-INTERFACED (ONBASE SCANS) Blood 10/21/2021 11:1 0 PM CDT Narrative BREEZE PFT - 11/13/2021 9:26 AM CDT Verified by Pedrito Stallworth on 11/13/2021. [place] Bhakta LAB - BLOOD ORDERABL Performing Organization Address [facility] Co de Phone Number BREEZE PFT NON-INTERFACED (ONBASE SCANS) * (ABNORMAL) Lactate Dehydrogenase (10/21/2021 11:10 PM CDT) LD (External) 815(H) 313 - 618 IU/L NON-INTERFACED (ONBASE SCANS) Blood 10/21/2021 11:1 0 PM CDT Narrative BREEZE PFT - 11/13/2021 9:26 AM CDT Verified by Pedrito Stallworth on 11/13/2021. [place] Bhakta LAB - BLOOD [facility] Performing Organization Address [facility] de Phone Number BREEZE PFT NON-INTERFACED (ONBASE SCANS) * (ABNORMAL) N terminal pro BNP outpatient (10/21/2021 11:10 PM CDT) N-Terminal Pro BNP (External) 597(H) 0 - 125 pg/ml NON-INTERFACED (ONBASE SCANS) Blood 10/21/2021 11:1 0 PM CDT Narrative BREEZE PFT - 11/13/2021 9:26 AM CDT Verified by Pedrito Stallworth on 11/13/2021. [place] Bhakta LAB - BLOOD ORDERABL Performing Organization Address [facility] Co de Phone Number BREEZE PFT [...] - [place]/ZIP Co de Phone Number BREEZE PFT NON-INTERFACED (ONBASE SCANS) * (ABNORMAL) Glucose (10/21/2021 10:45 PM CDT) Glucose (External) 208(H) 60 - 115 MG/DL NON-INTERFACED (ONBASE SCANS) Blood 10/21/2021 10:4 5 PM CDT Narrative BREEZE PFT - 11/13/2021 9:26 AM CDT Verified by Pedrito Stallworth on 11/13/2021. [place] Bhakta LAB - BLOOD ORDERABL ES Performing Organization Address [facility]/ZIP Co de Phone Number ERICKEZE PFT NON-INTERFACED [...] documented as of this encounter Care Teams Outsole Beveler Relationship Specialty Start Date End Date Rubén Boyle MD PCP - General Family Practice 03/08/16 Pamela Blanco RAILROAD TRACK INSPECTOR [facility] [address] [place], [place] [address] Referring Physician 07/13/16 Pedro Segura MD [facility] [address] [place], [place] [id number] Nephrology 10/03/16 Freddy Craft MD [address] [facility] [address] [place] [address] Assigned Gastroenterology Provider 02/08/20 Abdifatah Van MD [address] [facility] [address] [place] [address] Assigned Nephrology Provider 07/13/20 11/07/23 Nicole Carranza NP [address] [facility] [address] [place] [address] Assigned Heart and Vascular Provider 01/09/22 Andressa Ruiz PA-C 420 [facility] [address] [place] [address] Physician Chucking Machine Set Up Operator Endocrinology, Diabetes, and Metabolism 03/01/22 Ashlyn Storm, RN [facility] [address] [place], [place] [id number] Registered Nurse 03/03/22 09/15/22 Rubén Gunter [facility] [address] [place] [address] Assigned MTM Pharmacist 02/27/22 Andressa Ruiz PA-C [address] [facility] [address] [place], [place] [address] Assigned Endocrinology Provider 03/13/22 09/07/23 Suzan Harry MD 420 [place], [place] [address] Nephrology 06/30/23 Yasmeen Powers MD 500 [place] [address] Nephrology 10/24/23 Yasmeen Powers MD [address] [place] [address] Assigned Nephrology Provider 11/08/23 documented as of this encounter
--- OUTSIDE RECORDS SUMMARY | 2024-01-26 22:29 | XMS_ITS | Encounter Summary ---
Author Organization [place] Address [address] [place] [address] Care Team Providers Care Can Coverer Name Role Phone Rubén Boyle MD Primary Care Provider Pamela Blanco OPERATIONS SUPERVISOR CHEMICAL CLEANING Unavailable Pedro Segura MD Unavailable Freddy Craft MD Unavailable [phone] Abdifatah Van MD Unavailable Nicole Carranza OPERATIONS SUPERVISOR [employer]MICAL CLEANING Unavailable [phone] Andressa Ruiz PA-C Unavailable [phone] Ashlyn Storm RN Unavailable Rubén Gunter [facility] Unavailable Andressa Ruiz-C Unavailable Suzan Harry MD Unavailable [phone] Yasmeen Powers MD Unavailable [phone] Yasmeen Powers MD Unavailable [phone] Encounter Details Date Type Department Care Team (Late st Contact Info) Description 12/04/2020 [facility] [address] [place] [address] Calli Hall RN Social History [...] as of this encounter Care Teams Can Coverer Relationship Specialty Start Date End Date Rubén Boyle MD PCP - General Family Practice 03/08/16 Pamela Blanco OPERATIONS SUPERVISOR CHEMICAL CLEANING [facility] [address] [place], [place] [address] Referring Physician 07/13/[address] [facility] [address] [place], [place] [address] Nephrology 10/03/16 Freddy Craft MD [address] [facility] [address] [place], [place] [address] Assigned Gastroenterology Provider 02/08/20 Abdifatah Van MD [address] [facility] [address] [place], [place] [address] Assigned Nephrology Provider 07/13/20 11/07/23 Nicole Carranza NP [address] [facility] [address] [place], [place] [address] Assigned Heart and Vascular Provider 01/09/22 Andressa Ruiz PA-C 420 [facility] [address]03 [place], [place] [address] Physician Die Mounter Endocrinology, Diabetes, and Metabolism 03/01/22 Ashlyn Storm, RN [facility] [address] [place], [place] [address]394 Registered Nurse 03/03/22 09/15/22 Rubén Gunter [facility] [address] [place] [address] Assigned MTM Pharmacist 02/27/22 Andressa Ruiz PA-C 420 [facility] [address] [place], [place] 7[address] Assigned Endocrinology Provider 03/13/22 09/07/23 Suzan Harry MD 420 [place] [address] Nephrology 06/30/23 Yasmeen Powers MD 500 [place] [address] Nephrology 10/24/23 Yasmeen Powers MD [address] [place] [address] Assigned Nephrology Provider 11/08/23 documented as of this encounter
--- OUTSIDE RECORDS SUMMARY | 2024-01-26 22:29 | XMS_ITS | Encounter Summary ---
Author Organization [place] Address [address] [place] [address] Care Team Providers Care Motor Transport Inspector Name Role Phone Rubén Boyle MD Primary Care Provider Pamela Blanco PRESS AND BLOW MACHINE TENDER Unavailable [phone] Pedro Segura MD Unavailable [phone] Freddy Craft MD Unavailable [phone] Abdifatah Van MD Unavailable Nicole Carranza PRESS AND BLOW MACHINE TENDER Unavailable [phone] Andressa Ruiz PA-C Unavailable Ashlyn Storm RN Unavailable Rubén Gunter [facility] Unavailable Andressa Ruiz-C Unavailable Suzan Harry MD Unavailable [phone] Yasmeen Powers MD Unavailable [phone] Yasmeen Powers MD Unavailable [phone] Encounter Details Date Type Department Care Team (Late st Contact Info) Description 06/25/2021 [facility] [address] [place] [address] Calli Hall RN Social History [...] documented as of this encounter Care Teams Motor Transport Inspector Relationship Specialty Start Date End Date Rubén Boyle MD PCP - General Family Practice 03/08/16 Pamela Blanco PRESS AND BLOW MACHINE TENDER [facility] [address] [place], [place] [address] Referring Physician 07/13/16 Pedro Segura MD [facility] [address] [place], [place] [address] Nephrology 10/03/16 Freddy Craft MD [address] [facility] [address] [place], [place] [address] Assigned Gastroenterology Provider 02/08/20 Abdifatah Van MD [address] [facility] [address] [place], [place] [address] Assigned Nephrology Provider 07/13/20 11/07/23 Nicole Carranza NP 420 [facility] [address] [place], [place] [address] Assigned Heart and Vascular Provider 01/09/22 Andressa Ruiz PA-C 420 [facility] 803 [place], [place] [address] Physician Site Medical Director Endocrinology, Diabetes, and Metabolism 03/01/22 Ashlyn Storm, RN [facility] [address] [place], [place] [address] Registered Nurse 03/03/22 09/15/22 Rubén Gunter [facility] [address] [place] [address] Assigned MTM Pharmacist 02/27/22 Andressa Ruiz PA-C 420 [facility] [address]03 [place], [place] [address] Assigned Endocrinology Provider 03/13/22 09/07/23 Suzan Harry MD 420 [place] [address] Nephrology 06/30/23 Yasmeen Powers MD 500 [place] [address] Nephrology 10/24/23 Yasmeen Powers MD [address] [place] [address] Assigned Nephrology Provider 11/08/23 documented as of this encounter
--- OUTSIDE RECORDS SUMMARY | 2024-01-26 22:30 | XMS_ITS | Encounter Summary ---
Author Organization [place] Address [address] [place] [address] Care Team Providers Care Last Model Maker Name Role Phone Rubén Boyle MD Primary Care Provider Pamela Blanco LVN LPN Unavailable Pedro Segura MD Unavailable Freddy Craft MD Unavailable Abdifatah Van MD Unavailable Nicole Carranza LVN LPN Unavailable Andressa Ruiz-C Unavailable [phone] Ashlyn Storm RN Unavailable [phone] Rubén Gunter [facility] Unavailable Andressa Ruiz-C Unavailable [phone] Suzan Harry MD Unavailable [phone] Yasmeen Powers MD Unavailable Yasmeen Powers MD Unavailable [phone] Encounter Details Date Type Department Care Team (Late st Contact Info) Description 05/28/2019 External Order Results [facility] [address] [place] [address] Social History Tobacco Use Types [...] TANDEM MASS SPECTROMETRY Routine 05/28/2019 10:10 AM SENIOR CHEMICAL PROCESS ENGINEER MAGNESIUM Routine 05/28/2019 10:10 AM SENIOR CHEMICAL PROCESS ENGINEER HEPATIC FUNCTION PANEL Routine 05/28/2019 10:10 AM SENIOR CHEMICAL PROCESS ENGINEER BASIC METABOLIC PANEL Routine 05/28/2019 10:10 AM SENIOR CHEMICAL PROCESS ENGINEER CBC WITH PLATELETS Routine 05/28/2019 10 :10 AM SENIOR CHEMICAL PROCESS ENGINEER documented in this encounter Results * Tacrolimus level (05/28/2019 10:10 AM SENIOR CHEMICAL PROCESS ENGINEER) Tacrolimus(FK-5 06) (External) 5.4 See scan ng/mL LABDE SCAN Tacrolimus Last Dose (External) Not given LABDE SCAN Blood specimen (specimen) 05/28/2019 10:10 AM SENIOR CHEMICAL PROCESS ENGINEER Narrative SAMANTHA PFT - 05/30/2019 8:40 AM SENIOR CHEMICAL PROCESS ENGINEER Verified by Cruzito Marlow on 05/30/2019. Patient Reported LAB - BLOOD ORDERABL ES SAMANTHA PFT LABDE SCAN * (ABNORMAL) CBC with platelets (05/28/2019 10:10 AM SENIOR CHEMICAL PROCESS ENGINEER) WBC Count (External) 2.7(L) 4.5 - 11.0 [...] SCAN Blood specimen (specimen) 05/28/2019 10:10 AM SENIOR CHEMICAL PROCESS ENGINEER Narrative BREEZE PFT - 05/29/2019 8:37 AM SENIOR CHEMICAL PROCESS ENGINEER Verified by Pedrito Stallworth on 05/29/2019. Patient Reported LAB - BLOOD ORDERABL ES BREEZE PFT LABDE SCAN * Magnesium (05/28/2019 10:10 AM SENIOR CHEMICAL PROCESS ENGINEER) Magnesium (External) 1.6 1.6 - 2.6 mg/dL LABDE SCAN Blood specimen (specimen) 05/28/2019 10:10 AM SENIOR CHEMICAL PROCESS ENGINEER Narrative ERICKEZE PFT - 05/29/2019 8:37 AM SENIOR CHEMICAL PROCESS ENGINEER Verified by Pedrito Stallworth on 05/29/2019. Patient Reported LAB - BLOOD ORDERABL ES BREEZE PFT LABDE SCAN * Hepatic panel (05/28/2019 10:10 AM SENIOR CHEMICAL PROCESS ENGINEER) Albumin (External) 4.2 3.2 - 4.6 g/dL [...] SCAN Blood specimen (specimen) 05/28/2019 10:10 AM SENIOR CHEMICAL PROCESS ENGINEER Narrative BREEZE PFT - 05/29/2019 8:37 AM SENIOR CHEMICAL PROCESS ENGINEER Verified by Pedrito Stallworth on 05/29/2019. Patient Reported LAB - BLOOD ORDERABL ES BREEZE PFT LABDE SCAN * (ABNORMAL) Basic metabolic panel (05/28/2019 10:10 AM SENIOR CHEMICAL PROCESS ENGINEER) Sodium (External) 139 135 - 145 mmol/L [...] SCAN Blood specimen (specimen) 05/28/2019 10:10 AM SENIOR CHEMICAL PROCESS ENGINEER Narrative BREEZE PFT - 05/29/2019 8:37 AM SENIOR CHEMICAL PROCESS ENGINEER Verified by Pedrito Stallworth on 05/29/2019. 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 06/21/2016 06/21/2016 documented as of this encounter Care Teams Last Model Maker Relationship Specialty Start Date End Date Rubén Boyle MD PCP - General Family Practice 03/08/16 Pamela Blanco LVN LPN [facility] [address] [place] [address] Referring Physician 07/13/16 Pedro Segura MD [facility] [address] [place], [place] [address]327 Nephrology 10/03/16 Freddy Craft MD 516 [facility] [address] [place], [place] [address] Assigned Gastroenterology Provider 02/08/20 Abdifatah Van MD 717 [facility] [address] [place] [address] Assigned Nephrology Provider 07/13/20 11/07/23 Nicole Carranza NP 420 [facility] [address] [place], [place] 682955 Assigned Heart and Vascular Provider 01/09/22 Andressa Ruiz PA-C 420 [facility] 803 [place] [address] Physician Maintenance Assistant Endocrinology, Diabetes, and Metabolism 03/01/22 Ashlyn Storm RN [facility] 711 [place], [place] [id number] Registered Nurse 03/03/22 09/15/22 Rubén Gunter [facility] 909 [place] [address] Assigned MTM Pharmacist 02/27/22 Andressa Ruiz PA-C 420 [facility] 803 [place], [place] 634205 Assigned Endocrinology Provider 03/13/22 09/07/23 Suzan Harry MD 420 [place], [place] 213695 Nephrology 06/30/23 Yasmeen Powers MD 500 [place] [address] Nephrology 10/24/23 Yasmeen Powers MD 500 [place] [address] Assigned Nephrology Provider 11/08/23 documented as of this encounter
--- OUTSIDE RECORDS SUMMARY | 2024-01-26 22:30 | XMS_ITS | Encounter Summary ---
Author Organization [place] Address [address] [place] [address] Care Team Providers Care Angio Technologist Name Role Phone Rubén Boyle MD Primary Care Provider [phone] Pamela Blanco NURSING FACULTY Unavailable Pedro Segura MD Unavailable Freddy Cratf MD Unavailable Abdifatah Van MD Unavailable Nicole Carranza NURSING FACULTY Unavailable [phone] Andressa Ruiz-C Unavailable Ashlyn Storm RN Unavailable Rubén Gunter [facility] Unavailable Andressa Ruiz-C Unavailable Suzan Harry MD Unavailable [phone] Yasmeen Powers MD Unavailable [phone] Yasmeen Powers MD Unavailable [phone] Encounter Details Date Type Department Care Team (Late st Contact Info) Description 07/03/2019 Telephone [facility] [address] [place] [address] Georgina Stewart, [place] Social History [...] documented as of this encounter Care Teams Angio Technologist Relationship Specialty Start Date End Date Rubén Boyle MD PCP - General Family Practice 03/08/16 Pamlea Blanco NP [facility] [address] [place], [place] 661127 Referring Physician 07/13/16 Pedro Segura MD [facility] [address] [place], [place] 967357 Nephrology 10/03/16 Freddy Craft MD [address] [place] [address] Assigned Gastroenterology Provider 02/08/20 Abdifatah Van MD 717 [facility] [address] [address] [place] [address] Assigned Nephrology Provider 07/13/20 11/07/23 Nicole Carranza NURSING FACULTY 420 [facility] 508 [place], [place] 79[address]95 Assigned Heart and Vascular Provider 01/09/22 Andressa Ruiz PA-C 420 [facility] 803 [place], [place] [address]375 Physician Division Human Resources Manager Endocrinology, Diabetes, and Metabolism 03/01/22 Ashlyn Storm RN [facility] 711 [place], [place] 803414 Registered Nurse 03/03/22 09/15/22 Rubén Gunter [facility] [address] [place] [address] 901915 Assigned MTM Pharmacist 02/27/22 Andressa Ruiz PA-C 420 [facility] 803 [place], [place] 491635 Assigned Endocrinology Provider 03/13/22 09/07/23 Suzan Harry MD 420 [place], [place] 888035 Nephrology 06/30/23 Yasmeen Powers MD [address] [place] [address] Nephrology 10/24/23 Yasmeen Powers MD 500 [place] [address] Assigned Nephrology Provider 11/08/23 documented as of this encounter
--- OUTSIDE RECORDS SUMMARY | 2024-01-26 22:30 | XMS_ITS | Encounter Summary ---
Author Organization [place] Address [address] [place] [address] Care Team Providers Care Route Sales Delivery Driver Name Role Phone Rubén Boyle MD Primary Care Provider Pamela Blanco DAYTIME CAREGIVER Unavailable Pedro Segura MD Unavailable Freddy Craft MD Unavailable Abdifatah Van MD Unavailable Nicole Carranza DAYTIME CAREGIVER Unavailable [phone] Andressa Ruiz PA-C Unavailable Ashlyn Storm RN Unavailable [phone] Rubén Gunter [facility] Unavailable Andressa Ruiz-C Unavailable Suzan Harry MD Unavailable [phone] Yasmeen Powers MD Unavailable [phone] Yasmeen Powers MD Unavailable [phone] Encounter Details Date Type Department Care Team (Late st Contact Info) Description 03/07/2020 [facility] [address] [place] [address] Calli Hall RN Social History [...] documented as of this encounter Care Teams Route Sales Delivery Driver Relationship Specialty Start Date End Date Rubén Boyle MD PCP - General Family Practice 03/08/16 Pamela Blanco DAYTIME CAREGIVER [facility] [address] [place], [place] 716057 Referring Physician 07/13/16 Pedro Segura MD [facility] [address] [place], [place] 376237 Nephrology 10/03/16 Freddy Craft MD 516 [facility] [address] [place], [place] [address] Assigned Gastroenterology Provider 02/08/20 Abdifatah Van MD 717 [facility] [address] [place], [place] 468504 Assigned Nephrology Provider 07/13/20 11/07/23 Nicole Carranza NP 420 [facility] 508 [place], [place] 458435 Assigned Heart and Vascular Provider 01/09/22 Andressa Ruiz PA-C 420 [facility] 803 [place], [place] 215345 Physician Expeller Worker Endocrinology, Diabetes, and Metabolism 03/01/22 Ashlyn Storm, RN [facility] 711 [place], [place] [address]224 Registered Nurse 03/03/22 09/15/22 Rubén Gunter [facility] [address] [place] [address] Assigned MTM Pharmacist 02/27/22 Andressa Ruiz PA-C 420 [facility] 803 [place], [place] 6[address]655 Assigned Endocrinology Provider 03/13/22 09/07/23 Suzan Harry MD 420 [place] [address] Nephrology 06/30/23 Yasmeen Poewrs MD 500 [place] [address] Nephrology 10/24/23 Yasmeen Powers MD 500 [place] [address] Assigned Nephrology Provider 11/08/23 documented as of this encounter
--- OUTSIDE RECORDS SUMMARY | 2024-01-26 22:30 | XMS_ITS | Encounter Summary ---
Author Organization [place] Address [address] [place] [address] Care Team Providers Care Program Director/Music Director Name Role Phone Rubén Boyle MD Primary Care Provider Pamela Blanco TRANSMISSION SUPERINTENDENT Unavailable Pedro Segura MD Unavailable [phone] Freddy Craft MD Unavailable Abdifatah Van MD Unavailable Nicole Carranza TRANSMISSION SUPERINTENDENT Unavailable [phone] Andressa Ruzi-C Unavailable [phone] Ashlyn Storm RN Unavailable [phone] Rubén Gunter [facility] Unavailable Andressa Ruiz-C Unavailable Suzan Harry MD Unavailable [phone] Yasmeen Powers MD Unavailable Yasmeen Powers MD Unavailable [phone] Encounter Details Date Type Department Care Team (Late st Contact Info) Description 05/17/2019 External Order Results [facility] [address] [place] [address] Social History Tobacco Use Types [...] PLATELETS & DIFFERENTIAL Routine 05/17/2019 10:10 AM LAUNDRY TECH LIPID PROFILE Routine 05/17/2019 10:10 AM LAUNDRY TECH HEMOGLOBIN A1C Routine 05/17/2019 10:10 AM LAUNDRY TECH ALT Routine 05/17/2019 10:10 AM LAUNDRY TECH BASIC METABOLIC PANEL Routine 05/17/2019 10:10 AM LAUNDRY TECH ALBUMIN RANDOM URINE QUANTITATIVE Routine 05/17/2019 10:05 AM LAUNDRY TECH documented in this encounter Results * (ABNORMAL) Lipid Profile (05/17/2019 10:10 AM LAUNDRY TECH) Cholesterol (External) 170 90 - 200 MG/DL LABDE SCAN Triglycerides (External) 206(H) 40 - 197 U/L LABDE SCAN HDL Cholesterol (External) 88 <100 mg/dl LABDE SCAN LDL-Cholesterol (External) 41 >=40 mg/dl LABDE SCAN Blood specimen (specimen) 05/17/2019 10:10 AM LAUNDRY TECH Narrative SAMANTHA PFT - 05/23/2019 7:16 AM LAUNDRY TECH Verified by Pedrito Stallworth on 05/23/2019. Patient Reported LAB - BLOOD ORDERABL ES BRECARISA PFT LABDE SCAN * ALT (05/17/2019 10:10 AM LAUNDRY TECH) ALT (External) 13 4 - 50 U/L LABDE SCAN Blood specimen (specimen) 05/17/2019 10:10 AM LAUNDRY TECH Narrative BREEZE PFT - 05/23/2019 7:16 AM LAUNDRY TECH Verified by Pedrito Stallworth on 05/23/2019. Patient Reported LAB - BLOOD ORDERABL ES Performing Organization Address [facility]/ZIP Co de Phone Number [facility] PFT LABDE SCAN * (ABNORMAL) Basic metabolic panel (05/17/2019 10:10 AM LAUNDRY TECH) Glucose (External) 238(H) 60 - 115 mg/dL [...] SCAN Blood specimen (specimen) 05/17/2019 10:10 AM LAUNDRY TECH Narrative SAMANTHA PFT - 05/23/2019 7:16 AM LAUNDRY TECH Verified by Pedrito Stallworth on 05/23/2019. Patient Reported LAB - BLOOD ORDERABL ES Performing Organization Address [facility] Co de Phone Number [facility] LABDE SCAN * (ABNORMAL) Hemoglobin A1c (05/17/2019 10:10 AM LAUNDRY TECH) Hemoglobin A1C (External) 7.40(H) <=6.9 % LABDE SCAN Blood specimen (specimen) 05/17/2019 10:10 AM LAUNDRY TECH Narrative ERICKEZE PFT - 05/23/2019 7:16 AM LAUNDRY TECH Verified by Pedrito Stallworth on 05/23/2019. Patient Reported LAB - BLOOD ORDERABL ES Performing Organization Address City/[facility]/ZIP Co de Phone Number SAMANTHA PFT LABDE SCAN * (ABNORMAL) CBC with platelets differential (05/17/2019 10:10 AM LAUNDRY TECH) WBC Count (External) 2.5(L) 4.5 - 11.0 [...] SCAN Blood specimen (specimen) 05/17/2019 10:10 AM LAUNDRY TECH Narrative SAMANTHA PFT - 05/23/2019 7:16 AM LAUNDRY TECH Verified by Pedrito Stallworth on 05/23/2019. Patient Reported LAB - BLOOD ORDERABL ES SAMANTHA PFT LABDE SCAN * Albumin Random Urine Quantitative with Creat Ratio (05/17/2019 10:05 AM LAUNDRY TECH) Microalbumin Urine (External) 1 mg/dl LABDE SCAN Creatinine Urine mg/dL (External) 106 mg/dl LABDE SCAN Microalbumin Urine mg/g Cr (External) 9 0 - 30 mg/g LABDE SCAN Urine specimen (specimen) 05/17/2019 10:05 AM LAUNDRY TECH Narrative SAMANTHA PFT - 05/23/2019 7:16 AM LAUNDRY TECH Verified by Pedrito Stallworth on 05/23/2019. 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, 07/10/16 rectal swab 06/21/2016 06/21/2016 documented as of this encounter Care Teams Program Director/Music Director Relationship Specialty Start Date End Date Rubén Boyle MD PCP - General Family Practice 03/08/16 Pamela Blanco NP [facility] [address] [place], [place] [address]287 Referring Physician 07/13/16 Pedro Segura MD [facility] [address] [place], [place] 9[address]367 Nephrology 10/03/16 Freddy Craft MD [address] [place] [address]90[address] Assigned Gastroenterology Provider 02/08/20 Abdifatah Van MD 717 [facility] 353 [place] [address] Assigned Nephrology Provider 07/13/20 11/07/23 Nicole Carranza NP 420 [facility] 508 [place], [place] 476185 Assigned Heart and Vascular Provider 01/09/22 Andressa Ruiz PA-C 420 [facility] 803 [place], [place] [address]155 Physician Editor Greeting Card Endocrinology, Diabetes, and Metabolism 03/01/22 Ashlyn Storm RN [facility] 711 [place], [place] [address]164 Registered Nurse 03/03/22 09/15/22 Rubén Gunter [facility] 909 [place], [place] 170995 Assigned MTM Pharmacist 02/27/22 Andressa Ruiz PA-C 420 [facility] 803 [place], [place] 407005 Assigned Endocrinology Provider 03/13/22 09/07/23 Suzan Harry MD 420 [place], [place] [address]45 Nephrology 06/30/23 Yasmeen Powers MD 500 [place], [place] 118405 Nephrology 10/24/23 Yasmeen Powers MD NPI: [id number] [place] [address] Assigned Nephrology Provider 11/08/23 documented as of this encounter
--- OUTSIDE RECORDS SUMMARY | 2024-01-26 22:30 | XMS_ITS | Encounter Summary ---
Author Organization [facility] Address [address] [place] [address] Care Team Providers Care Roving Carrier Name Role Phone Rubén Boyle MD Primary Care Provider Pamela Blanco CARDIOVASCULAR SPECIALIST Unavailable Pedro Segura MD Unavailable [phone] Freddy Cratf MD Unavailable Abdifatah Van MD Unavailable Nicole Carranza CARDIOVASCULAR SPECIALIST Unavailable [phone] Andressa Ruiz-C Unavailable Ashlyn Storm RN Unavailable Rubén Gunter [facility] Unavailable Andressa Ruiz-C Unavailable [phone] Suzan Harry MD Unavailable [phone] Yasmeen Powers MD Unavailable Yasmeen Powers MD Unavailable [phone] Encounter Details Date Type Department Care Team (Late st Contact Info) Description 10/24/2018 External Order Results [facility] [address] [place] [address] Social History Tobacco Use Types [...] ORDERABL ES Performing Organization Address City/[facility]/ZIP [...] documented as of this encounter Care Teams Roving Carrier Relationship Specialty Start Date End Date Rubén Boyle MD PCP - General Family Practice 03/08/16 Pamela Blanco, CARDIOVASCULAR SPECIALIST [facility] [address] [place] [address] Referring Physician 07/13/16 Pedro Segura MD [facility] [address] [place] [address] Nephrology 10/03/16 Freddy Craft MD 516 [facility] 2A [place], [place] [address] Assigned Gastroenterology Provider 02/08/20 Abdifatah Van MD 717 [facility] [address] [place], [place] [address] Assigned Nephrology Provider 07/13/20 11/07/23 Nicole Carranza, [place] 420 [facility] 508 [place], [place] [address] Assigned Heart and Vascular Provider 01/09/22 Andressa Ruiz PA-C 420 [facility] 803 [place], [place] 8[address] Physician Support Representative Endocrinology, Diabetes, and Metabolism 03/01/22 Ashlyn Storm, RN [facility] 711 [place] [address] Registered Nurse 03/03/22 09/15/22 Rubén Gunter [facility] [address] [place] [address] Assigned MTM Pharmacist 02/27/22 Andressa Ruiz PA-C 420 [facility] 803 [place] [address] Assigned Endocrinology Provider 03/13/22 09/07/23 Suzan Harry MD 420 [place] [address] Nephrology 06/30/23 Yasmeen Powers MD 500 [place] [address] Nephrology 10/24/23 Yasmeen Powers MD 500 [place] [address] Assigned Nephrology Provider 11/08/23 documented as of this encounter
--- OUTSIDE RECORDS SUMMARY | 2024-01-26 22:30 | XMS_ITS | Encounter Summary ---
Author Organization [facility] Address [address] [place] [address] Care Team Providers Care Hydraulic Press Operator Name Role Phone Rubén Boyle MD Primary Care Provider Pamela Blanco CHUCK SPLITTER Unavailable Pedro Segura MD Unavailable [phone] Freddy Craft MD Unavailable Abdifatah Van MD Unavailable Nicole Carranza CHUCK SPLITTER Unavailable [phone] Andressa Ruiz-C Unavailable Ashlyn Storm RN Unavailable Rubén Gunter [facility] Unavailable Andressa Ruiz-C Unavailable Suzan Harry MD Unavailable [phone] Yasmeen Powers MD Unavailable [phone] Yasmeen Powers MD Unavailable [phone] Encounter Details Date Type Department Care Team (Latest Contact Info) Description 09/12/2019 External Order Results [facility] [address] [place] [address] Outside, Provider History of liver [...] - BLOOD ORD ERABLES Performing Organization Address City/State/[facility] Co de [...] - BLOOD ORDERABL ES Performing Organization Address [facility] de Phone Number BREEZE PFT [...] - BLOOD ORDERABL ES Performing Organization Address [facility] Co de Phone Number BREEZE PFT LABDE SCAN * Magnesium (09/12/2019 11:00 AM CDT) Magnesium (External) 1.6 1.5 - 2.6 MG/DL LABDE SCAN Blood specimen (specimen) 09/12/2019 11:00 AM CDT Subhash SINGH PFT - 09/13/2019 9:16 AM CDT Verified by Pedrito Stallworth on 09/13/2019. Patient Reported LAB - BLOOD ORDERABL ES Performing Organization Address [facility]/ZIP Co de Phone Number [facility] LABDE SCAN * (ABNORMAL) Basic metabolic [...] - BLOOD ORDERABL ES Performing Organization Address [facility]/ZIP Co de Phone Number [facility] LABDE SCAN * (ABNORMAL) UA with Microscopic (09/12/2019 11:00 AM CDT) Color Urine (External) ORANGE YELLOW LABDE SCAN Appearance Urine (External) CLEAR CLEAR LABDE SCAN Glucose Urine (External) TRACE(H) NEGATIVE LABDE SCAN Bilirubin Urine (External) NEG NEGATIVE LABDE SCAN Ketones Urine (External) TRACE(H) NEGATIVE LABDE SCAN Specific [place] Urine (External) >=1.030 LABDE SCAN pH Urine [...] as of this encounter Care Teams Hydraulic Press Operator Relationship Specialty Start Date End Date Rubén Boyle MD PCP - General Family Practice 03/08/16 Pamela Blanco NP [facility] [address] [place], [place] 2639[address] Referring Physician 07/13/16 Pedro Segura MD [facility] [address] [place], [place] 8[address]157 Nephrology 10/03/16 Freddy Craft MD 516 [facility] [address] [place], [place] [address]205 Assigned Gastroenterology Provider 02/08/20 Abdifatah Van MD 717 [facility] [address] 353 [place], [place] [address]6934 Assigned Nephrology Provider 07/13/20 11/07/23 Nicole Carranza, GERMANIA 420 [facility] 508 [place], [place] 9[address]555 Assigned Heart and Vascular Provider 01/09/22 Andressa Ruiz PA-C 420 [facility] 803 [place], [place] [address] Physician Millinery Blocker Endocrinology, Diabetes, and Metabolism 03/01/22 Ashlyn Storm, RN [facility] 711 [place], [place] 4[address]24 Registered Nurse 03/03/22 09/15/22 Rubén Gunter [facility] 909 [facility] [address] [place], [place] [address] Assigned MTM Pharmacist 02/27/22 Andressa Ruiz PA-C 420 [facility] 803 [place], [place] 8[address]805 Assigned Endocrinology Provider 03/13/22 09/07/23 Suzan Harry MD 420 [place], [place] [address] Nephrology 06/30/23 Yasmeen Powers MD 500 [place] [address] Nephrology 10/24/23 Yasmeen Powers MD 500 [place] [address] Assigned Nephrology Provider 11/08/23 documented as of this encounter
--- OUTSIDE RECORDS SUMMARY | 2024-01-26 22:30 | XMS_ITS | Encounter Summary ---
Author Organization Branch Address [address] [place] [address] Care Team Providers Care Special Needs Librarian Name Role Phone Rubén Boyle MD Primary Care Provider Pamela Blanco CORE FITTER Unavailable [phone] Pedro Segura MD Unavailable Freddy Craft MD Unavailable Abdifatah Van MD Unavailable Nicole Carranza CORE FITTER Unavailable [phone] Andressa Ruiz-C Unavailable Ashlyn Storm RN Unavailable [phone] Rubén Gunter [facility] Unavailable Andressa Ruiz-C Unavailable [phone] Suzan [place] MD Unavailable [phone] Yasmeen Powers MD Unavailable [phone] Yasmeen Powers MD Unavailable [phone] Encounter Details Date Type Department Care Team (Latest Contact Info) Description 05/13/2020 External Order Results [facility] Transplant Clinic [address] [place] [address] Outside, Provider History of liver [...] EXTERNAL LAB RESULTS Routine 05/13/2020 8:50 AM CONTACT LENS BLOCKER TACROLIMUS BY TANDEM MASS SPECTROMETRY Routine 05/13/2020 8:50 AM CONTACT LENS BLOCKER History of liver transplant (H) Status post kidney transplant Long-term use of immunosuppressant medication MAGNESIUM Routine 05/13/2020 8:50 AM CONTACT LENS BLOCKER History of liver transplant (H) Status post kidney transplant Long-term use of immunosuppressant medication LIPID PROFILE Routine 05/13/2020 8:50 AM CONTACT LENS BLOCKER Lipid screening Liver replaced by transplant (H) HEPATITIS C ANTIBODY Routine 05/13/2020 8:50 AM CONTACT LENS BLOCKER HEPATITIS B SURFACE ANTIGEN Routine 05/13/2020 8:50 AM CONTACT LENS BLOCKER HEPATITIS B CORE ANTIBODY Routine 05/13/2020 8:50 AM CONTACT LENS BLOCKER DIFFERENTIAL Routine 05/13/2020 8:50 AM CONTACT LENS BLOCKER BASIC METABOLIC PANEL Routine 05/13/2020 8:50 AM CONTACT LENS BLOCKER History of liver transplant (H) Status post kidney transplant Long-term use of immunosuppressant medication CBC WITH PLATELETS Routine 05/13/2020 8: 50 AM CONTACT LENS BLOCKER History of liver transplant (H) Status post kidney transplant Long-term use of immunosuppressant medication documented in this encounter Results * Tacrolimus level (05/13/2020 8:50 AM CONTACT LENS BLOCKER) Tacrolimus(FK-5 06) (External) 4.6 See scan ng/mL LABDE SCAN Blood specimen (specimen) 05/13/2020 8:50 AM CONTACT LENS BLOCKER Narrative BREEZE PFT - 05/18/2020 10:10 AM CONTACT LENS BLOCKER Verified by Cruzito Marlow on 05/18/2020. Freddy Dumont MD LAB - BLOOD ORD ERABLES BREEZE PFT LABDE SCAN * (ABNORMAL) Lipid Profile (05/13/2020 8:50 AM CONTACT LENS BLOCKER) Cholesterol (External) 220(H) 90 - 200 MG/DL LABDE SCAN Triglycerides (External) 386(H) 40 - 197 MG/DL LABDE SCAN LDL-Cholesterol (External) 104(H) <100 mg/dl LABDE SCAN HDL Cholesterol (External) 39(L) >=40 mg/dL LABDE SCAN Blood specimen (specimen) 05/13/2020 8:50 AM CONTACT LENS BLOCKER Narrative BREEZE PFT - 05/18/2020 10:10 AM CONTACT LENS BLOCKER Verified by Cruzito Marlow on 05/18/2020. Freddy Dumont MD LAB - BLOOD ORD ERABLES BREEZE PFT LABDE SCAN * Magnesium (05/13/2020 8:50 AM CONTACT LENS BLOCKER) Magnesium (External) 1.9 1.5 - 2.6 MG/DL LABDE SCAN Blood specimen (specimen) 05/13/2020 8:50 AM CONTACT LENS BLOCKER Narrative BREEZE PFT - 05/18/2020 10:10 AM CONTACT LENS BLOCKER Verified by Cruzito Marlow on 05/18/2020. Freddy Dumont MD LAB - BLOOD ORD ERABLES BRETABITHAE PFT LABDE SCAN * (ABNORMAL) Basic metabolic panel (05/13/2020 8:50 AM CONTACT LENS BLOCKER) Glucose (External) 316(H) 60 - 115 mg/dL [...] SCAN Blood specimen (specimen) 05/13/2020 8:50 AM CONTACT LENS BLOCKER Narrative AMNAE PFT - 05/18/2020 10:10 AM CONTACT LENS BLOCKER Verified by Cruzito Marlow on 05/18/2020. Freddy Dumont MD LAB - BLOOD ORD ERABLES Performing Organization Address [facility] Co de Phone Number SAMANTHA PFT LABDE SCAN * (ABNORMAL) WBC Differential (05/13/2020 8:50 AM CONTACT LENS BLOCKER) % Neutrophils (External) 68.6 50.0 - 70.0 [...] SCAN Blood specimen (specimen) 05/13/2020 8:50 AM CONTACT LENS BLOCKER Narrative BREEZE PFT - 05/18/2020 10:10 AM CONTACT LENS BLOCKER Verified by Cruzito Marlow on 05/18/2020. Patient Reported LAB - BLOOD ORDERABL ES [facility] * (ABNORMAL) CBC with platelets (05/13/2020 8:50 AM CONTACT LENS BLOCKER) WBC Count (External) 4.30(L) 5.00 - 10.00 [...] SCAN Blood specimen (specimen) 05/13/2020 8:50 AM CONTACT LENS BLOCKER Narrative ERICKEZE PFT - 05/18/2020 10:10 AM CONTACT LENS BLOCKER Verified by Cruzito Marlow on 05/18/2020. Freddy Dumont MD LAB - BLOOD ORD ERABLES BRETABITHAE PFT LABDE SCAN * Hepatitis C antibody (05/13/2020 8:50 AM CONTACT LENS BLOCKER) Hepatitis C Antibody (External) Negative Negative LABDE SCAN Blood specimen (specimen) 05/13/2020 8:50 AM CONTACT LENS BLOCKER Narrative BREEZE PFT - 05/15/2020 7:27 AM CONTACT LENS BLOCKER Verified by Cruzito Marlow on 05/15/2020. Patient Reported LAB - BLOOD ORDERABL ES Performing Organization Address City/[facility]/ZIP Co de Phone Number BREEZE PFT LABDE SCAN * Hepatitis B core antibody (05/13/2020 8:50 AM CONTACT LENS BLOCKER) Hepatitis B Core Anette (External) Negative Negative LABDE SCAN Blood specimen (specimen) 05/13/2020 8:50 AM CONTACT LENS BLOCKER Narrative BREEZE PFT - 05/15/2020 7:27 AM CONTACT LENS BLOCKER Verified by Cruzito Marlow on 05/15/2020. Patient Reported LAB - BLOOD ORDERABL ES Performing Organization Address [facility] Co de Phone Number BREEZE PFT LABDE SCAN * External Lab Results (05/13/2020 8:50 AM CONTACT LENS BLOCKER) Scan Lab Results (External) Negative Negative LABDE SCAN Comment:HEP A AB IGM. 05/13/2020 8:50 AM CONTACT LENS BLOCKER Narrative BREEZE PFT - 05/15/2020 7:27 AM CONTACT LENS BLOCKER Verified by Cruzito Marlow on 05/15/2020. Patient Reported LABORATORY Performing Organization Address City/[facility] Co de Phone Number BREEZE PFT LABDE SCAN * Hepatitis B surface antigen (05/13/2020 8:50 AM CONTACT LENS BLOCKER) Hep B Surface Agn (External) Negative Negative LABDE SCAN Blood specimen (specimen) 05/13/2020 8:50 AM CONTACT LENS BLOCKER Narrative BREEZE PFT - 05/15/2020 7:27 AM CONTACT LENS BLOCKER Verified by Cruzito Marlow on 05/15/2020. Patient [...] as of this encounter Care Teams Special Needs Librarian Relationship Specialty Start Date End Date Rubén Boyle MD PCP - General Family Practice 03/08/16 Pamela Blanco NP [facility] [address] [place], [place] [id number] Referring Physician 07/13/16 Pedro Segura MD [facility] [address] [place] [address] Nephrology 10/03/16 Freddy Craft MD [address] [facility] [address] [place] [address] Assigned Gastroenterology Provider 02/08/20 Abdifatah Van MD [address] [place] [address] Assigned Nephrology Provider 07/13/20 11/07/23 Nicole Carranza NP 420 [facility] [address] [place] [address] Assigned Heart and Vascular Provider 01/09/22 Andressa Ruiz PA-C 420 [facility] 803 [place], [place] [address] Physician Intake Specialist Endocrinology, Diabetes, and Metabolism 03/01/22 Ashlyn Storm RN [facility] [address] [place] [address] Registered Nurse 03/03/22 09/15/22 Rubén Gunter [facility] [address] [place] [address] Assigned MTM Pharmacist 02/27/22 Andressa Ruiz PA-C [address] [address] Assigned Endocrinology Provider 03/13/22 09/07/23 Suzan Harry MD 420 [place], [place] [address] Nephrology 06/30/23 Yasmeen Powers MD 500 [place] [address] Nephrology 10/24/23 Yasmeen Powers MD [address] [place] [address] Assigned Nephrology Provider 11/08/23 documented as of this encounter
--- OUTSIDE RECORDS SUMMARY | 2024-01-26 22:30 | XMS_ITS | Encounter Summary ---
Author Organization [place] Address [address] [place] [address] Care Team Providers Care Production Operations Engineer Name Role Phone Rubén Boyle MD Primary Care Provider Pamela Blanco FOUR HORSE HITCH DRIVER Unavailable [phone] Pedro Segura MD Unavailable [phone] Freddy Craft MD Unavailable [phone] Abdifatah Van MD Unavailable Nicole Carranza FOUR HORSE HITCH DRIVER Unavailable [phone] Andressa Ruiz-C Unavailable Ashlyn Storm RN Unavailable Rubén Gunter [facility] Unavailable Andressa Ruiz-C Unavailable [phone] Suzan Harry MD Unavailable [phone] Yasmeen Powers MD Unavailable Yasmeen Powers MD Unavailable [phone] Encounter Details Date Type Department Care Team (Late st Contact Info) Description 03/19/2019 External Order Results [facility] Trans[facility] [address] [place] [address] Social History Tobacco Use [...] UA WITH MICROSCOPIC Routine 03/19/2019 12:00 PM SHIPYARD PAINTER TACROLIMUS BY TANDEM MASS SPECTROMETRY Routine 03/19/2019 9:30 AM SHIPYARD PAINTER MAGNESIUM Routine 03/19/2019 9:30 AM SHIPYARD PAINTER LIPID PROFILE Routine 03/19/2019 9:30 AM SHIPYARD PAINTER HEPATIC FUNCTION PANEL Routine 03/19/2019 9:30 AM SHIPYARD PAINTER BASIC METABOLIC PANEL Routine 03/19/2019 9:30 AM SHIPYARD PAINTER CBC WITH PLATELETS Routine 03/19/2019 9: 30 AM SHIPYARD PAINTER documented in this encounter Results * (ABNORMAL) UA with Microscopic (03/19/2019 12:00 PM SHIPYARD PAINTER) Color Urine (External) Yellow Yellow LABDE SCAN Appearance Urine (External) Clear Clear LABDE SCAN Specific [place] Urine (External) >=1.030(A) 1.010 - 1.025 LABDE [...] SCAN Urine specimen (specimen) 03/19/2019 12:00 PM SHIPYARD PAINTER Narrative BREEZE PFT - 03/20/2019 6:18 AM SHIPYARD PAINTER Verified by Cruzito Marlow on 03/20/2019. Patient Reported LAB - URINE ORDERABL ES BREEZE PFT LABDE SCAN * Tacrolimus level (03/19/2019 9:30 AM SHIPYARD PAINTER) Tacrolimus(FK-5 06) (External) 5.0 See scan ng/mL LABDE SCAN Tacrolimus Last Dose (External) 03/18/2019 8:00 PM LABDE SCAN Blood specimen (specimen) 03/19/2019 9:30 AM SHIPYARD PAINTER Narrative AMNAE PFT - 03/20/2019 3:24 PM SHIPYARD PAINTER Verified by Rhiannon Cain on 03/20/2019. Patient Reported LAB - BLOOD ORDERABL ES BREEZE PFT LABDE SCAN * (ABNORMAL) CBC with platelets (03/19/2019 9:30 AM SHIPYARD PAINTER) WBC Count (External) 2.7(L) 4.5 - 11.0 [...] SCAN Blood specimen (specimen) 03/19/2019 9:30 AM SHIPYARD PAINTER Narrative AMNAE PFT - 03/19/2019 1:12 PM SHIPYARD PAINTER Verified by Pedrito Stallworth on 03/19/2019. Patient Reported LAB - BLOOD ORDERABL ES Performing Organization Address [facility] Co de Phone Number BREEZE PFT LABDE SCAN * Magnesium (03/19/2019 9:30 AM SHIPYARD PAINTER) Magnesium (External) 1.8 1.6 - 2.6 mg/dL LABDE SCAN Blood specimen (specimen) 03/19/2019 9:30 AM SHIPYARD PAINTER Subhash BREEZE PFT - 03/19/2019 1:12 PM SHIPYARD PAINTER Verified by Pedrito Stallworth on 03/19/2019. Patient Reported LAB - BLOOD ORDERABL ES Performing Organization Address [facility] Phone Number BREEZE PFT LABDE SCAN * (ABNORMAL) Lipid Profile (03/19/2019 9:30 AM SHIPYARD PAINTER) Cholesterol (External) 179 100 - 199 mg/dL LABDE SCAN Triglycerides (External) 195(H) <150 mg/dL LABDE SCAN HDL Cholesterol (External) 43 >40 mg/dL LABDE SCAN LDL-Cholesterol (External) 97 <=130 mg/dL LABDE SCAN Blood specimen (specimen) 03/19/2019 9:30 AM SHIPYARD PAINTER Subhash SINGH PFT - 03/19/2019 1:12 PM SHIPYARD PAINTER Verified by Pedrito Stallworth on 03/19/2019. Patient Reported LAB - BLOOD ORDERABL ES Performing Organization Address [facility] Co de Phone Number BREEZE PFT LABDE SCAN * Hepatic panel (03/19/2019 9:30 AM SHIPYARD PAINTER) Albumin (External) 4.2 3.2 - 4.6 g/dL [...] SCAN Blood specimen (specimen) 03/19/2019 9:30 AM SHIPYARD PAINTER Narrative BREEZE PFT - 03/19/2019 1:12 PM SHIPYARD PAINTER Verified by Pedrito Stallworth on 03/19/2019. Patient Reported LAB - BLOOD ORDERABL ES BREEZE PFT LABDE SCAN * (ABNORMAL) Basic metabolic panel (03/19/2019 9:30 AM SHIPYARD PAINTER) Sodium (External) 137 135 - 145 mmol/L [...] SCAN Blood specimen (specimen) 03/19/2019 9:30 AM SHIPYARD PAINTER Narrative AMNAE PFT - 03/19/2019 1:10 PM SHIPYARD PAINTER Verified by Pedrito Stallworth on 03/19/2019. 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 06/21/2016 06/21/2016 documented as of this encounter Care Teams Production Operations Engineer Relationship Specialty Start Date End Date Rubén Boyle MD PCP - General Family Practice 03/08/16 Pamela Blanco, FOUR HORSE HITCH DRIVER [facility] [address] [place] [address] Referring Physician 07/13/16 Pedro Segura MD [facility] [address] [place] [address] Nephrology 10/03/16 Freddy Craft MD [facility] [place], [place] [address] Assigned Gastroenterology Provider 02/08/20 Abdifatah Van MD 717 [facility] [address] [place] [address] Assigned Nephrology Provider 07/13/20 11/07/23 Nicole Carranza NP 420 [facility] 508 [place], [place] [address] Assigned Heart and Vascular Provider 01/09/22 Andressa Ruiz PA-C 420 [facility] 803 [place], [place] [address] Physician Press Assistant And Feeder Endocrinology, Diabetes, and Metabolism 03/01/22 Ashlyn Storm, RN [facility] 7[address] [place] [address] Registered Nurse 03/03/22 09/15/22 Rubén Gunter [facility] [address] [place] [address] Assigned MTM Pharmacist 02/27/22 Andressa Ruiz PA-C 420 [facility] 803 [place] [address] Assigned Endocrinology Provider 03/13/22 09/07/23 Suzan Harry MD 420 [place] [address] Nephrology 06/30/23 Yasmeen Powers MD 500 [place] [address] Nephrology 10/24/23 Yasmeen Powers MD [address] [place] [address] Assigned Nephrology Provider 11/08/23 documented as of this encounter
--- OUTSIDE RECORDS SUMMARY | 2024-01-26 22:30 | XMS_ITS | Encounter Summary ---
Author Organization [place] Address [address] [place] [address] Care Team Providers Care Radarman Name Role Phone Rubén Byole MD Primary Care Provider Pamela Blanco GAS PUMPING STATION SUPERVISOR Unavailable Pedro Segura MD Unavailable Freddy Craft MD Unavailable Abdifatah Van MD Unavailable Nicole Carranza GAS PUMPING STATION SUPERVISOR Unavailable [phone] Andressa Ruiz-C Unavailable Ashlyn Storm RN Unavailable Rubén Gunter [facility] Unavailable Andressa Ruiz-C Unavailable Suzan Harry MD Unavailable [phone] Yasmeen Powers MD Unavailable [phone] Yasmeen Powers MD Unavailable [phone] Encounter Details Date Type Department Care Team (Latest Contact Info) Description 08/25/2018 External Order Results [facility] [address] [place] [address] History of liver transplant (H); [...] - BLOOD ORD ERABLES Performing Organization Address [facility]/ZIP Co de Phone Number ERICKEZKayli PFT LABDE [...] ORDERABL ES Performing Organization Address [facility] Co de Phone Number AMNAE [...] - BLOOD ORD ERABLES Performing Organization Address [facility]/ZIP Co de Phone Number BREEZE PFT LABDE [...] - BLOOD ORD ERABLES Performing Organization Address [facility] Co de Phone Number BREEZE PFT LABDE SCAN * Magnesium (08/25/2018 9:52 AM CDT) Magnesium (External) 1.9 1.6 - 2.6 mg/dL LABDE SCAN Blood specimen (specimen) 08/25/2018 9:52 AM CDT Narrative BREEZE PFT - 08/25/2018 5:16 PM CDT Verified by Melissa Otto on 08/25/2018. Freddy Dumont MD LAB - BLOOD ORD ERABLES Performing Organization Address [facility] Co de Phone Number [...] documented as of this encounter Care Teams Radarman Relationship Specialty Start Date End Date Rubén Boyle MD PCP - General Family Practice 03/08/16 Pamela Blanco GAS PUMPING STATION SUPERVISOR [facility] [address] [place] [address] Referring Physician 07/13/[address] [facility] [address] [place] [address] Nephrology 10/03/16 Freddy Craft MD 516 [facility] [place], [place] [address] Assigned Gastroenterology Provider 02/08/20 Abdifatah Van MD 717 [facility] [address] [place] [address] Assigned Nephrology Provider 07/13/20 11/07/23 Nicole Carranza NP 420 [facility] 508 [place], [place] [address] Assigned Heart and Vascular Provider 01/09/22 Andressa Ruiz PA-C 420 [facility] 803 [place], [place] [address] Physician Healthcare Liaison Endocrinology, Diabetes, and Metabolism 03/01/22 Ashlyn Storm RN [facility] [address] [place] [address] Registered Nurse 03/03/22 09/15/22 Rubén Gunter [facility] 909 [place] [address] Assigned MTM Pharmacist 02/27/22 Andressa Ruiz PA-C 420 [facility] 803 [place] [address] Assigned Endocrinology Provider 03/13/22 09/07/23 Suzan Harry MD 420 [place] [address] Nephrology 06/30/23 Yasmeen Powers MD 500 [place] [address] Nephrology 10/24/23 Yasmeen Powers MD [address] [place] [address] Assigned Nephrology Provider 11/08/23 documented as of this encounter
--- OUTSIDE RECORDS SUMMARY | 2024-01-26 22:30 | XMS_ITS | Encounter Summary ---
Author Organization [place] Address [address] [place] [address] Care Team Providers Care Sales Development Executive Name Role Phone Rubén Boyle MD Primary Care Provider Pamela Blanco AIRPLANE CLEANER Unavailable [phone] Pedro Segura MD Unavailable [phone] Freddy Craft MD Unavailable [phone] Abdifatah Van MD Unavailable Nicole Carranza AIRPLANE CLEANER Unavailable [phone] Andressa Ruiz-C Unavailable Ashlyn Storm RN Unavailable Rubén Gunter [facility] Unavailable Andressa Ruiz-C Unavailable [phone] Suzan Harry MD Unavailable [phone] Yasmeen Powers MD Unavailable Yasmeen Powers MD Unavailable [phone] Encounter Details Date Type Department Care Team (Late st Contact Info) Description 12/07/2018 External Order Results [facility] [address] [place] [address] Social History Tobacco Use Types [...] as of this encounter Care Teams Sales Development Executive Relationship Specialty Start Date End Date Rubén Boyle MD PCP - General Family Practice 03/08/16 Pamela Blanco, AIRPLANE CLEANER [facility] [address] [place] [address] Referring Physician 07/13/16 Pedro Segura MD [facility] [address] [place] [address] Nephrology 10/03/16 Freddy Craft MD 516 [facility] [place], [place] [address] Assigned Gastroenterology Provider 02/08/20 Abdifatah Van MD 717 [facility] [address] [place], [place] [address] Assigned Nephrology Provider 07/13/20 11/07/23 Nicole Carranza, [place] 420 [facility] [address] [place], [place] [address] Assigned Heart and Vascular Provider 01/09/22 Andressa Ruiz PA-C 420 [facility] 803 [place], [place] [address] Physician Scenic Artist Endocrinology, Diabetes, and Metabolism 03/01/22 Ashlyn Storm, RN [facility] 711 [place] [address] Registered Nurse 03/03/22 09/15/22 Rubén Gunter [facility] [address] [place] [address] Assigned MTM Pharmacist 02/27/22 Andressa Ruiz PA-C 420 [facility] 803 [place] [address] Assigned Endocrinology Provider 03/13/22 09/07/23 Suzan Harry MD 420 [place] [address] Nephrology 06/30/23 Yasmeen Powers MD 500 [place] [address] Nephrology 10/24/23 Yasmeen Powers MD 500 [place] [address] Assigned Nephrology Provider 11/08/23 documented as of this encounter
--- OUTSIDE RECORDS SUMMARY | 2024-01-26 22:30 | XMS_ITS | Encounter Summary ---
Author Organization [place] Address [address] [place] [address] Care Team Providers Care Nursing Services Manager Name Role Phone Rubén Boyle MD Primary Care Provider [phone] Pamela Blanco MARKETING COMMUNITY LIAISON Unavailable Pedro Segura MD Unavailable Freddy Craft MD Unavailable [phone] Abdifatah Van MD Unavailable Nicole Carranza MARKETING COMMUNITY LIAISON Unavailable [phone] Andressa Ruiz PA-C Unavailable [phone] Ashlyn Storm RN Unavailable Rubén Guntre [facility] Unavailable Andressa Ruiz-C Unavailable Suzan Harry MD Unavailable [phone] Yasmeen Powers MD Unavailable [phone] Yasmeen Powers MD Unavailable [phone] Encounter Details Date Type Department Care Team (Late st Contact Info) Description 04/29/2020 [facility] [address] [place] [address] Calli Hall RN Social History [...] documented as of this encounter Care Teams Nursing Services Manager Relationship Specialty Start Date End Date Rubén Boyle MD PCP - General Family Practice 03/08/16 Pamela Blanco MARKETING COMMUNITY LIAISON [facility] [address] [place], [place] [address] Referring Physician 07/13/16 Pedro Segura MD [facility] [address] [place], [place] [address] Nephrology 10/03/16 Freddy Craft MD 516 [facility] [address] [place], [place] [address] Assigned Gastroenterology Provider 02/08/20 Abdifatah Van MD 717 [facility] [address] [place], [place] [address] Assigned Nephrology Provider 07/13/20 11/07/23 Nicole Carranza NP 420 [facility] [address] [place], [place] [address] Assigned Heart and Vascular Provider 01/09/22 Andressa Ruiz PA-C 420 [facility] 803 [place], [place] [address] Physician Supervisor Billposting Endocrinology, Diabetes, and Metabolism 03/01/22 Ashlyn Storm, RN [facility] 711 [place], [place] [address]644 Registered Nurse 03/03/22 09/15/22 Rubén Gunter [facility] [address] [place] [address] Assigned MTM Pharmacist 02/27/22 Andressa Ruiz PA-C 420 [facility] 803 [place], [place] [address] Assigned Endocrinology Provider 03/13/22 09/07/23 Suzan Harry MD 420 [place] [address] Nephrology 06/30/23 Yasmeen Powers MD 500 [place] [address] Nephrology 10/24/23 Yasmeen Powers MD 500 [place] [address] Assigned Nephrology Provider 11/08/23 documented as of this encounter
--- OUTSIDE RECORDS SUMMARY | 2024-01-26 22:30 | XMS_ITS | Encounter Summary ---
Author Organization [place] Address [address] [place] [address] Care Team Providers Care Die Barber Name Role Phone Rubén Boyle MD Primary Care Provider Pamela Blanco ENGINE DESIGNER Unavailable [phone] Pedro Segura MD Unavailable [phone] Freddy Craft MD Unavailable Abdifatah Van MD Unavailable Nicole Carranza ENGINE DESIGNER Unavailable [phone] Andressa Ruiz-C Unavailable [phone] Ashlyn Storm RN Unavailable Rubén Gunter [facility] Unavailable Andressa Ruiz-C Unavailable Suzan Harry MD Unavailable [phone] Yasmeen Powers MD Unavailable [phone] Yasmeen Powers MD Unavailable [phone] Encounter Details Date Type Department Care Team (Late st Contact Info) Description 02/11/2020 [facility] [address] [place] [address] Susan Trujillo RN Social History [...] as of this encounter Care Teams Die Barber Relationship Specialty Start Date End Date Rubén Boyle MD PCP - General Family Practice 03/08/16 Pamela Blanco ENGINE DESIGNER [facility] [address] [place], [place] 47[address] Referring Physician 07/13/16 Pedro Segura MD [facility] [address] [place], [place] [address] Nephrology 10/03/16 Freddy Craft MD [address] [facility] [address] [place], [place] [address] Assigned Gastroenterology Provider 02/08/20 Abdifatah Van MD 717 [facility] [address] [place], [place] 140514 Assigned Nephrology Provider 07/13/20 11/07/23 Nicole Carranza NP 420 [facility] [address] [place], [place] 127655 Assigned Heart and Vascular Provider 01/09/22 Andressa Ruiz PA-C 420 [facility] 803 [place], [place] [address]145 Physician Concierge Receptionist Endocrinology, Diabetes, and Metabolism 03/01/22 Ashlyn Storm, RN [facility] 711 [place], [place] 8[address]34 Registered Nurse 03/03/22 09/15/22 Rubén Gunter [facility] [address] [place] [address] Assigned MTM Pharmacist 02/27/22 Andressa Ruiz PA-C 420 [facility] 803 [place], [place] 0[address]45 Assigned Endocrinology Provider 03/13/22 09/07/23 Suzan Harry MD 420 [place] [address] Nephrology 06/30/23 Yasmeen Powers MD 500 [place] [address] Nephrology 10/24/23 Yasmeen Powers MD 500 [place] [address] Assigned Nephrology Provider 11/08/23 documented as of this encounter
--- OUTSIDE RECORDS SUMMARY | 2024-01-26 22:30 | XMS_ITS | Encounter Summary ---
Author Organization [place] Address [address] [place] [address] Care Team Providers Care Structural Steel Equipment Erector Name Role Phone Rubén Boyle MD Primary Care Provider Pamela Blanco GRAVEL WHEELER Unavailable Pedro Segura MD Unavailable Freddy Craft MD Unavailable [phone] Abdifatah Van MD Unavailable Nicole Carranza GRAVEL WHEELER Unavailable [phone] Andressa Ruiz-C Unavailable Ashlyn Storm RN Unavailable Rubén Gunter [facility] Unavailable Andressa Ruiz-C Unavailable Suzan Harry MD Unavailable [phone] Yasmeen Powers MD Unavailable [phone] Yasmeen Powers MD Unavailable [phone] Encounter Details Date Type Department Care Team (Latest Contact Info) Description 02/05/2020 External Order Results [facility] [address] [place] [address] Outside, Provider History of liver [...] specimen (specimen) 02/05/2020 12:00 PM CDT Narrative [facility] PFT - 02/06/2020 12:16 PM CDT Verified by Yamil Santo on 02/06/2020. Patient Reported LAB - BLOOD ORDERABL ES [facility] * (ABNORMAL) Basic metabolic panel (02/05/2020 12:00 PM CDT) Pathologist [facility] Calcium (External) 8.9 8.4 - 10.6 [...] 02/05/2020 12:00 PM CDT Narrative [facility] PFT - 02/06/2020 12:16 PM CDT Verified [...] as of this encounter Care Teams Structural Steel Equipment Erector Relationship Specialty Start Date End Date Rubén Boyle MD PCP - General Family Practice 03/08/16 Pamela Blanco NP [facility] [address] [place], [place] 818617 Referring Physician 07/13/16 Pedro Segura MD [facility] [address] [place], [place] 927967 Nephrology 10/03/16 Freddy Craft MD [address] [place] [address] 162635 Assigned Gastroenterology Provider 02/08/20 Abdifatah Van MD 717 [facility] [address] [place] [address] Assigned Nephrology Provider 07/13/20 11/07/23 Nicole Carranza NP 420 [facility] 508 [place], [place] 744655 Assigned Heart and Vascular Provider 01/09/22 Andressa Ruiz PA-C 420 [facility] 803 [place], [place] [address] Physician Remnant Sorter Endocrinology, Diabetes, and Metabolism 03/01/22 Ashlyn Storm RN [facility] 711 [place], [place] [address]554 Registered Nurse 03/03/22 09/15/22 [facility] 909 [place], [place] 049865 Assigned MTM Pharmacist 02/27/22 Andressa Ruiz PA-C 420 [facility] 803 [place], [place] 992925 Assigned Endocrinology Provider 03/13/22 09/07/23 Suzan Harry MD 420 [place], [place] 869635 Nephrology 06/30/23 Yasmeen Powers MD 500 [place] [address] Nephrology 10/24/23 Yasmeen Powers MD 500 [place] [address] Assigned Nephrology Provider 11/08/23 documented as of this encounter
--- OUTSIDE RECORDS SUMMARY | 2024-01-26 22:31 | XMS_ITS | Encounter Summary ---
Author Organization [place] Address [address] [place] [address] Care Team Providers Care Pst Specialist Name Role Phone Rubén Boyle MD Primary Care Provider Pamela Blanco HEALTH AND SAFETY MANAGER Unavailable Pedro Segura MD Unavailable Freddy Craft MD Unavailable [phone] Abdifatah Van MD Unavailable Nicole Carranza HEALTH AND SAFETY MANAGER Unavailable [phone] Andressa Ruiz-C Unavailable Ashlyn Storm RN Unavailable Rubén Gunter [facility] Unavailable Andressa Ruiz-C Unavailable Suzan Harry MD Unavailable [phone] Yasmeen Powers MD Unavailable [phone] Yasmeen Powers MD Unavailable [phone] Encounter Details Date Type Department Care Team (Latest Contact Info) Description 09/06/2017 External Order Results [facility] 9[address] [place] [address] History of liver transplant (H); [...] - BLOOD ORD ERABLES Performing Organization Address City/[facility]/ZIP Co de Phone Number [facility] PFT LABDE SCAN * Phosphorus (09/06/2017 8:38 AM CDT) Phosphorus (External) 3.9 2.3 - 4.7 mg/dL LABDE SCAN Blood specimen (specimen) 09/06/2017 8:38 AM CDT Narrative [facility] PFT - 09/07/2017 7:21 AM CDT Verified by Rhiannon Cain on 09/07/2017. Freddy Dumont MD LAB - BLOOD ORD ERABLES Performing Organization Address [facility]/ZIP Co de Phone Number [facility] PFT [...] documented as of this encounter Care Teams Pst Specialist Relationship Specialty Start Date End Date Rubén Boyle MD PCP - General Family Practice 03/08/16 Pamela Blanco NP [facility] [address] [place] [address] Referring Physician 07/13/16 Pedro Segura MD [facility] [address] [place] [address] Nephrology 10/03/16 Freddy Craft MD 516 [facility] 2A [place], [place] 5640[address] Assigned Gastroenterology Provider 02/08/20 Abdifatah Van MD 717 [facility] [address] [place], [place] [address] Assigned Nephrology Provider 07/13/20 11/07/23 Nicole Carranza NP 420 [facility] 508 [place], [place] 8[address]955 Assigned Heart and Vascular Provider 01/09/22 Andressa Ruiz PA-C 420 [facility] 803 [place], [place] [address]145 Physician Net Developer Programmer Endocrinology, Diabetes, and Metabolism 03/01/22 Ashlyn Storm, RN [facility] 711 [place] [address] Registered Nurse 03/03/22 09/15/22 Rubén Gunter [facility] [address] [place] [address] Assigned MTM Pharmacist 02/27/22 Andressa Ruiz PA-C 420 [facility] 803 [place] [address] Assigned Endocrinology Provider 03/13/22 09/07/23 Suzan Harry MD 420 [place] [address] Nephrology 06/30/23 Yasmeen Powers MD 500 [place] [address] Nephrology 10/24/23 Yasmeen Powers MD 500 [place] [address] Assigned Nephrology Provider 11/08/23 documented as of this encounter
--- OUTSIDE RECORDS SUMMARY | 2024-01-26 22:31 | XMS_ITS | Encounter Summary ---
Author Organization [facility] Address [address] [place] [address] Care Team Providers Care Forging Dies Final Finisher Name Role Phone Rubén Boyle MD Primary Care Provider [phone] Pamela Blanco SENIOR WINDOWS ENGINEER Unavailable Pedro Segura MD Unavailable [phone] Freddy Craft MD Unavailable Abdifatah Van MD Unavailable Nicole Carranza SENIOR WINDOWS ENGINEER Unavailable [phone] Andressa Ruiz-C Unavailable [phone] Ashlyn Storm RN Unavailable Rubén Gunter [facility] Unavailable Andressa Ruiz-C Unavailable [phone] Suzan Harry MD Unavailable [phone] Yasmeen Powers MD Unavailable [phone] Yasmeen Powers MD Unavailable [phone] Encounter Details Date Type Department Care Team (Latest Contact Info) Description 05/03/2018 External Order Results [facility] 9[address] [place] [address] History of liver transplant (H); [...] TANDEM MASS SPECTROMETRY Routine 05/03/2018 8:43 AM BLANKET WINDER HELPER History of liver transplant (H) Status post kidney transplant Long-term use of immunosuppressant medication MAGNESIUM Routine 05/03/2018 8:43 AM BLANKET WINDER HELPER History of liver transplant (H) Status post kidney transplant Long-term use of immunosuppressant medication HEPATIC FUNCTION PANEL Routine 05/03/2018 8:43 AM BLANKET WINDER HELPER History of liver transplant (H) Status post kidney transplant Long-term use of immunosuppressant medication BASIC METABOLIC PANEL Routine 05/03/2018 8:43 AM BLANKET WINDER HELPER History of liver transplant (H) Status post kidney transplant Long-term use of immunosuppressant medication CBC WITH PLATELETS Routine 05/03/2018 8: 43 AM BLANKET WINDER HELPER History of liver transplant (H) Status post kidney transplant Long-term use of immunosuppressant medication documented in this encounter Results * Tacrolimus level (05/03/2018 8:43 AM BLANKET WINDER HELPER) Tacrolimus(FK-5 06) (External) 3.9 ng/mL LABDE SCAN Tacrolimus Last Dose (External) Not given LABDE SCAN Blood specimen (specimen) 05/03/2018 8:43 AM BLANKET WINDER HELPER Narrative [facility] PFT - 05/04/2018 5:18 PM BLANKET WINDER HELPER Verified by Rhiannon Cain on 05/04/2018. Freddy Dumont MD LAB - BLOOD ORD ERALASHAE Performing Organization Address City/[facility]/ZIP Co de Phone Number [facility] LABDE SCAN * (ABNORMAL) CBC with platelets (05/03/2018 8:43 AM BLANKET WINDER HELPER) WBC Count (External) 4.0(L) 4.5 - 11.0 [...] SCAN Blood specimen (specimen) 05/03/2018 8:43 AM BLANKET WINDER HELPER Narrative [facility] - 05/04/2018 5:17 AM BLANKET WINDER HELPER Verified by Cruzito Marlow on 05/04/2018. Freddy Dumont MD LAB - BLOOD ORD ERALASHAE Performing Organization Address [facility] Co de Phone Number [facility] LABDE SCAN * Magnesium (05/03/2018 8:43 AM BLANKET WINDER HELPER) Magnesium (External) 2.1 1.6 - 2.6 mg/dL LABDE SCAN Blood specimen (specimen) 05/03/2018 8:43 AM BLANKET WINDER HELPER Narrative [facility] - 05/04/2018 5:17 AM BLANKET WINDER HELPER Verified by Cruzito Marlow on 05/04/2018. Freddy Dumont MD LAB - BLOOD ORD ERALASHAE [facility] LABDE SCAN * (ABNORMAL) Hepatic panel (05/03/2018 8:43 AM BLANKET WINDER HELPER) Albumin (External) 4.1 3.2 - 4.6 g/dL [...] SCAN Blood specimen (specimen) 05/03/2018 8:43 AM BLANKET WINDER HELPER Narrative [facility] PFT - 05/04/2018 5:17 AM BLANKET WINDER HELPER Verified by Cruzito Marlow on 05/04/2018. Freddy Dumont MD LAB - BLOOD ORD ERABLES [facility] PFT LABDE SCAN * (ABNORMAL) Basic metabolic panel (05/03/2018 8:43 AM BLANKET WINDER HELPER) Pathologist [facility] Sodium (External) 137 135 - 145 mmol/L [...] SCAN Blood specimen (specimen) 05/03/2018 8:43 AM BLANKET WINDER HELPER Narrative [facility] PFT - 05/04/2018 5:17 AM BLANKET WINDER HELPER Verified by Cruzito Marlow on 05/04/2018. Freddy [...] Pamela Blanco NP [facility] [address] [place], [place] [address] Referring Physician 07/13/[address] [facility] [address] [place] [address] Nephrology 10/03/16 Freddy Craft MD 516 [facility] [address] [place] [address] Assigned Gastroenterology Provider 02/08/20 Abdifatah Van MD [address] [place] [address] Assigned Nephrology Provider 07/13/20 11/07/23 Nicole Carranza NP 420 [facility] 508 [place] [address] Assigned Heart and Vascular Provider 01/09/22 Andressa Ruiz PA-C 420 [facility] 803 [place], [place] [address] Physician Automotive Sales Executive Endocrinology, Diabetes, and Metabolism 03/01/22 Ashlyn Storm RN [facility] 711 [place], [place] 394594 Registered Nurse 03/03/22 09/15/22 Rubén Gunter [facility] [address] [place] [address] 847965 Assigned MTM Pharmacist 02/27/22 Andressa Ruiz PA-C [address] [place] [address] 803 [place], [place] 430875 Assigned Endocrinology Provider 03/13/22 09/07/23 Suzan Harry MD [address] [place] [address] Nephrology 06/30/23 Yasmeen Powers MD 500 [place], [place] [address] Nephrology 10/24/23 Yasmeen Powers MD 500 [place] [address] Assigned Nephrology Provider 11/08/23 documented as of this encounter
--- OUTSIDE RECORDS SUMMARY | 2024-01-26 22:31 | XMS_ITS | Encounter Summary ---
Author Organization [facility] Address [address] [place] [address] Care Team Providers Care Rn Cvor Name Role Phone Rubén Boyle MD Primary Care Provider Pamela Blanco MAGNET VALVE ASSEMBLER Unavailable Pedro Segura MD Unavailable [phone] Freddy Craft MD Unavailable Abdifatah Van MD Unavailable Nicole Carranza MAGNET VALVE ASSEMBLER Unavailable [phone] Andressa Ruiz-C Unavailable Ashlyn Storm RN Unavailable [phone] Rubén Gunter [facility] Unavailable Andressa Ruiz-C Unavailable Suzan Harry MD Unavailable [phone] Yasmeen Powers MD Unavailable [phone] Yasmeen Powers MD Unavailable [phone] Encounter Details Date Type Department Care Team (Latest Contact Info) Description 03/16/2018 External Order Results [facility] [address] [place] [address] History of liver transplant (H); [...] REFLEX TO MICRO Routine 03/16/2018 9:59 AM FLAT SURFACER History of liver transplant (H) Status post kidney transplant Long-term use of immunosuppressant medication MAGNESIUM Routine 03/16/2018 9:14 AM FLAT SURFACER History of liver transplant (H) Status post kidney transplant Long-term use of immunosuppressant medication LIPID PROFILE Routine 03/16/2018 9:14 AM FLAT SURFACER HEPATIC FUNCTION PANEL Routine 03/16/2018 9:14 AM FLAT SURFACER History of liver transplant (H) Status post kidney transplant Long-term use of immunosuppressant medication BASIC METABOLIC PANEL Routine 03/16/2018 9:14 AM FLAT SURFACER History of liver transplant (H) Status post kidney transplant Long-term use of immunosuppressant medication CBC WITH PLATELETS Routine 03/16/2018 9: 14 AM FLAT SURFACER History of liver transplant (H) Status post kidney transplant Long-term use of immunosuppressant medication documented in this encounter Results * *UA reflex to Microscopic (03/16/2018 9:59 AM FLAT SURFACER) Color Urine (External) YEL Yellow LABDE SCAN Appearance Urine (External) Clear Clear LABDE SCAN Specific [place] Urine (External) 1.015 1.010 - 1.025 LABDE [...] SCAN Urine specimen (specimen) 03/16/2018 9:59 AM FLAT SURFACER Narrative [facility] PFT - 03/16/2018 1:39 PM FLAT SURFACER Verified by Rhiannon Cain on 03/16/2018. Freddy Dumont MD LAB - URINE ORD ERABLES Performing Organization Address City/[facility]/ZIP Co de Phone Number [facility] PFT LABDE SCAN * (ABNORMAL) Lipid Profile (03/16/2018 9:14 AM FLAT SURFACER) Cholesterol (External) 197 100 - 199 mg/dL LABDE SCAN Triglycerides (External) 156(H) <150 mg/dL LABDE SCAN HDL Cholesterol (External) 38(L) >40 mg/dL LABDE SCAN LDL-Cholesterol (External) 128 <=130 mg/dL LABDE SCAN Blood specimen (specimen) 03/16/2018 9:14 AM FLAT SURFACER Narrative ERICKKayli PFT - 03/16/2018 1:39 PM FLAT SURFACER Verified by Rhiannon Cain on 03/16/2018. Patient Reported LAB - BLOOD ORDERABL ES Performing Organization Address City/[facility]/ZIP Co de Phone Number [facility] PFT LABDE SCAN * (ABNORMAL) Basic metabolic panel (03/16/2018 9:14 AM FLAT SURFACER) Sodium (External) 138 135 - 145 mmol/L [...] SCAN Blood specimen (specimen) 03/16/2018 9:14 AM FLAT SURFACER Narrative [facility] PFT - 03/16/2018 1:39 PM FLAT SURFACER Verified by Rhiannon Cain on 03/16/2018. Freddy Dumont MD LAB - BLOOD ORD ERABLES [facility] PFT LABDE SCAN * (ABNORMAL) CBC with platelets (03/16/2018 9:14 AM FLAT SURFACER) WBC Count (External) 3.5(L) 4.5 - 11.0 [...] SCAN Blood specimen (specimen) 03/16/2018 9:14 AM FLAT SURFACER Narrative [facility] PFT - 03/16/2018 1:39 PM FLAT SURFACER Verified by Rhiannon Cain on 03/16/2018. Freddy Dumont MD LAB - BLOOD ORD ERABLES [facility] LABDE SCAN * (ABNORMAL) Hepatic panel (03/16/2018 9:14 AM FLAT SURFACER) Albumin (External) 4.4 3.2 - 4.6 g/dL [...] SCAN Blood specimen (specimen) 03/16/2018 9:14 AM FLAT SURFACER Narrative [facility] P[facility] - 03/16/2018 1:39 PM FLAT SURFACER Verified by Rhiannon Cain on 03/16/2018. Freddy Dumont MD LAB - BLOOD ORD ERABLES Performing Organization Address [facility] Co de Phone Number [facility] P[facility] LABDE SCAN * Magnesium (03/16/2018 9:14 AM FLAT SURFACER) Magnesium (External) 2.2 1.6 - 2.6 mg/dL LABDE SCAN Blood specimen (specimen) 03/16/2018 9:14 AM FLAT SURFACER Narrative [facility] P[facility] - 03/16/2018 1:39 PM FLAT SURFACER Verified by Rhiannon Cain on 03/16/2018. Freddy [...] as of this encounter Care Teams Rn Cvor Relationship Specialty Start Date End Date uRbén Boyle MD PCP - General Family Practice 03/08/16 Pamela Blanco, MAGNET VALVE ASSEMBLER [facility] [address] [place] [address] Referring Physician 07/13/16 Pedro Segura MD [facility] [address] [place] [address] Nephrology 10/03/16 Freddy Craft MD 516 [facility] 2A [place], [place] 5284[address] Assigned Gastroenterology Provider 02/08/20 Abdifatah Van MD 717 [facility] 353 [place], [place] [address] Assigned Nephrology Provider 07/13/20 11/07/23 Nicole Carranza NP 420 [facility] 508 [place], [place] [address] Assigned Heart and Vascular Provider 01/09/22 Andressa Ruiz PA-C 420 [facility] 803 [place], [place] [address] Physician Chummer Endocrinology, Diabetes, and Metabolism 03/01/22 Ashlyn Storm RN [facility] 711 [place] [address] Registered Nurse 03/03/22 09/15/22 Rubén Gunter [facility] 909 [place] [address] Assigned MTM Pharmacist 02/27/22 Andressa Ruiz PA-C 420 [facility] 803 [place] [address] Assigned Endocrinology Provider 03/13/22 09/07/23 Suzan Harry MD 420 [place] [address] Nephrology 06/30/23 Yasmeen Powers MD 500 [place] [address] Nephrology 10/24/23 Yasmeen Powers MD 500 [place] [address] Assigned Nephrology Provider 11/08/23 documented as of this encounter
--- OUTSIDE RECORDS SUMMARY | 2024-01-26 22:31 | XMS_ITS | Encounter Summary ---
Author Organization [place] Address [address] [place] [address] Care Team Providers Care Aircraft Armament Mechanic Name Role Phone Rubén Boyle MD Primary Care Provider Pamela Blanco PAINTING CONTRACTOR Unavailable Pedro Segura MD Unavailable Freddy Craft MD Unavailable [phone] Abdifatah Van MD Unavailable Nicole Carranza PAINTING CONTRACTOR Unavailable [phone] Andressa Ruiz-C Unavailable Ashlyn Storm RN Unavailable Rubén Gunter [facility] Unavailable Andressa Ruiz-C Unavailable [phone] Suzan Harry MD Unavailable [phone] Yasmeen Powers MD Unavailable [phone] Yasmeen Powers MD Unavailable [phone] Encounter Details Date Type Department Care Team (Late st Contact Info) Description 09/20/2017 External Order Results [facility] [address] [place] [address] Social History Tobacco Use Types [...] documented as of this encounter Care Teams Aircraft Armament Mechanic Relationship Specialty Start Date End Date Rubén Boyle MD PCP - General Family Practice 03/08/16 Pamela Blanco PAINTING CONTRACTOR [facility] [address] [place], [place] [address]807 Referring Physician 07/13/16 Pedro Segura MD [facility] [address] [place], [place] [address]207 Nephrology 10/03/16 Freddy Cratf MD 516 [facility] 2A [place], [place] [address] Assigned Gastroenterology Provider 02/08/20 Abdifatah Van MD 717 [facility] [address] [place] [address] Assigned Nephrology Provider 07/13/20 11/07/23 Nicole Carranza NP 420 [facility] [address] [place] [address] Assigned Heart and Vascular Provider 01/09/22 Andressa Ruiz PA-C 420 [facility] 803 [place] [address] Physician Weed Sprayer Endocrinology, Diabetes, and Metabolism 03/01/22 Ashlyn Storm, RN [facility] 711 [place] [address] Registered Nurse 03/03/22 09/15/22 Rubén Gunter [facility] [address] [place] [address] Assigned MTM Pharmacist 02/27/22 Andressa Ruiz PA-C 420 [facility] 803 [place] [address] Assigned Endocrinology Provider 03/13/22 09/07/23 Suzan Harry MD [address] [place] [address] Nephrology 06/30/23 Yasmeen Powers MD 500 [place] [address] Nephrology 10/24/23 Yasmeen Powers MD 500 [place] [address] Assigned Nephrology Provider 11/08/23 documented as of this encounter
--- OUTSIDE RECORDS SUMMARY | 2024-01-26 22:31 | XMS_ITS | Encounter Summary ---
Author Organization [facility] Address [address] [place] [address] Care Team Providers Care Laundry Tech Name Role Phone Rubén Boyle MD Primary Care Provider Pamela Blanco MAINFRAME SYSTEMS PROGRAMMER Unavailable Pedro Segura MD Unavailable Freddy Craft MD Unavailable Abdifatah Van MD Unavailable Nicole Carranza MAINFRAME SYSTEMS PROGRAMMER Unavailable [phone] Andressa Ruiz-C Unavailable [phone] Ashlyn Storm RN Unavailable [phone] Rubén Gunter [facility] Unavailable Andressa Ruiz-C Unavailable Suzan Harry MD Unavailable [phone] Yasmeen Powers MD Unavailable [phone] Yasmeen Powers MD Unavailable [phone] Encounter Details Date Type Department Care Team (Latest Contact Info) Description 06/28/2017 External Order Results [facility] [address] [place] [address] Liver replaced by transplant (H); 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 transplant; USP use of drug Social History Tobacco Use [...] TANDEM MASS SPECTROMETRY Routine 06/20/2017 9:30 AM CIRCULAR HEAD SAW OPERATOR Liver replaced by transplant (H) 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 transplant parts counterman use of drug PHOSPHORUS Routine 06/20/2017 9:30 AM CIRCULAR HEAD SAW OPERATOR Liver replaced by transplant (H) 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 transplant parts counterman use of drug MAGNESIUM Routine 06/20/2017 9:30 AM CIRCULAR HEAD SAW OPERATOR Liver replaced by transplant (H) 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 transplant parts counterman use of drug HEPATIC FUNCTION PANEL Routine 06/20/2017 9:30 AM CIRCULAR HEAD SAW OPERATOR Liver replaced by transplant (H) 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 transplant parts counterman use of drug BASIC METABOLIC PANEL Routine 06/20/2017 9:30 AM CIRCULAR HEAD SAW OPERATOR Liver replaced by transplant (H) 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 transplant parts counterman use of drug CBC WITH PLATELETS Routine 06/20/2017 9: 30 AM CIRCULAR HEAD SAW OPERATOR Liver replaced by transplant (H) 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 transplant USP use of drug documented in this encounter Results * Tacrolimus level (06/20/2017 9:30 AM CIRCULAR HEAD SAW OPERATOR) Tacrolimus(FK-5 06) (External) 6.3 5 - 8 ng/mL LABDE SCAN Blood specimen (specimen) 06/20/2017 9:30 AM CIRCULAR HEAD SAW OPERATOR Subhash SINGH PFT - 06/28/2017 2:01 PM CDT Verified by Rhiannon Cain on 06/28/2017. Freddy Dumont MD LAB - BLOOD ORD ERABLES Performing Organization Address [facility]/ZIP Co de Phone Number BREEZE PFT LABDE SCAN * Hepatic panel (Albumin, ALT, AST, Bili, Alk Phos, TP) (06/20/2017 9:30 AM CIRCULAR HEAD SAW OPERATOR) Albumin (External) 4.0 3.2 - 4.6 [...] SCAN Blood specimen (specimen) 06/20/2017 9:30 AM CIRCULAR HEAD SAW OPERATOR Narrative BREEZE PFT - 06/28/2017 2:01 PM CDT Verified by Rhiannon Cain on 06/28/2017. Freddy Dumont MD LAB - BLOOD ORD ERABLES Performing Organization Address [facility] Co de Phone Number BREEZE PFT LABDE SCAN * (ABNORMAL) Phosphorus (06/20/2017 9:30 AM CIRCULAR HEAD SAW OPERATOR) Phosphorus (External) 4.9(H) 2.3 - 4.7 mg/dL LABDE SCAN Blood specimen (specimen) 06/20/2017 9:30 AM CIRCULAR HEAD SAW OPERATOR Narrative BREEZE PFT - 06/28/2017 2:01 PM CDT Verified by Rhiannon Cain on 06/28/2017. Freddy Dumont MD LAB - BLOOD ORD ERALASHAE BREEZE PFT LABDE SCAN * Magnesium (06/20/2017 9:30 AM CIRCULAR HEAD SAW OPERATOR) Magnesium (External) 1.9 1.6 - 2.0 mg/dL LABDE SCAN Blood specimen (specimen) 06/20/2017 9:30 AM CIRCULAR HEAD SAW OPERATOR Subhash SUAREZEZE PFT - 06/28/2017 2:01 PM CDT Verified by Rhiannon Cain on 06/28/2017. Freddy Dumont MD LAB - BLOOD ORD ERABLES ERICKEZE PFT LABDE SCAN * (ABNORMAL) Basic metabolic panel (06/20/2017 9:30 AM CIRCULAR HEAD SAW OPERATOR) Sodium (External) 137 135 - 145 [...] SCAN Blood specimen (specimen) 06/20/2017 9:30 AM CIRCULAR HEAD SAW OPERATOR Narrative SAMANTHA PFT - 06/28/2017 2:01 PM CDT Verified by Rhiannon Cain on 06/28/2017. Freddy Dumont MD LAB - BLOOD ORD ERABLES ERICKEZE PFT LABDE SCAN * (ABNORMAL) CBC with platelets (06/20/2017 9:30 AM CIRCULAR HEAD SAW OPERATOR) WBC Count (External) 2.4(L) 4.5 - 11.0 [...] SCAN Blood specimen (specimen) 06/20/2017 9:30 AM CIRCULAR HEAD SAW OPERATOR Narrative AMNAKayli PFT - 06/28/2017 2:01 PM CDT Verified by Rhiannon Cain on 06/28/2017. Freddy Dumont MD LAB - BLOOD ORD ERABLES BRECARISA PFT LABDE SCAN documented in this encounter Visit Diagnoses Diagnosis Liver replaced by transplant (H) Liver replaced by transplant 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 transplant parts counterman use of drug Encounter for long-term (current) use of other medications documented in this encounter Additional Health Concerns Infection Onset Date Last Indicated Resolved Time 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/16 urine, 07/10/16 rectal swab 06/21/2016 06/21/2016 documented as of this encounter Care Teams Laundry Tech Relationship Specialty Start Date End Date Rubén Boyle MD PCP - General Family Practice 03/08/16 Pamela Blanco NP [facility] [address] [place] [address] Referring Physician 07/13/16 Pedro Segura MD [facility] [address] [place], [place] [address]647 Nephrology 10/03/16 Freddy Craft MD [facility] [place], [place] [address] Assigned Gastroenterology Provider 02/08/20 Abdifatah Van MD 717 [facility] [address] [place], [place] 0[address]374 Assigned Nephrology Provider 07/13/20 11/07/23 Nicole Carranza NP 420 [facility] 508 [place], [place] 549535 Assigned Heart and Vascular Provider 01/09/22 Andressa Ruiz PA-C 420 [facility] 803 [place], [place] 457135 Physician Pbx Operator Endocrinology, Diabetes, and Metabolism 03/01/22 Ashlyn Storm RN [facility] 711 [place], [place] 496404 Registered Nurse 03/03/22 09/15/22 Rubén Gunter [facility] 909 [facility] [address] [place], [place] 896635 Assigned MTM Pharmacist 02/27/22 Andressa Ruiz PA-C 420 [facility] 803 [place] [address] Assigned Endocrinology Provider 03/13/22 09/07/23 Suzan Harry MD [address] [place] [address] Nephrology 06/30/23 Yasmeen Powers MD 500 [place] [address] Nephrology 10/24/23 Yasmeen Powers MD 500 [place] [address] Assigned Nephrology Provider 11/08/23 documented as of this encounter
--- OUTSIDE RECORDS SUMMARY | 2024-01-26 22:31 | XMS_ITS | Encounter Summary ---
Author Organization [place] Address [address] [place] [address] Care Team Providers Care Public Works Commissioner Name Role Phone Rubén Boyle MD Primary Care Provider Pamela Blanco FOOD ANALYST Unavailable [phone] Pedro Segura MD Unavailable Freddy Craft MD Unavailable [phone] Abdifatah Van MD Unavailable Nicole Carranza FOOD ANALYST Unavailable [phone] Andressa Ruiz-C Unavailable Ashlyn Storm RN Unavailable [phone] Rubén Gunter [facility] Unavailable Andressa Ruiz-C Unavailable Suzan Harry MD Unavailable [phone] Yasmeen Powers MD Unavailable [phone] Yasmeen Powers MD Unavailable [phone] Encounter Details Date Type Department Care Team (Latest Contact Info) Description 11/16/2017 External Order Results [facility] [address] [place] [address] History of liver transplant (H); [...] - BLOOD ORD ERABLES Performing Organization Address [facility] Co de Phone Number BREEZE PFT [...] documented as of this encounter Care Teams Public Works Commissioner Relationship Specialty Start Date End Date Rubén Boyle MD PCP - General Family Practice 03/08/16 Pamela Blanco NP [address] [place] [address] Referring Physician 07/13/16 Pedro Segura MD [facility] [address] [place] [address] Nephrology 10/03/16 Frdedy Craft MD 516 [facility] 2A [place], [place] 466035 Assigned Gastroenterology Provider 02/08/20 Abdifatah Van MD 717 [facility] [address] [place], [place] 35[address]64 Assigned Nephrology Provider 07/13/20 11/07/23 Nicole Carranza NP 420 [facility] 508 [place], [place] [address] Assigned Heart and Vascular Provider 01/09/22 Andressa Ruiz PA-C 420 [facility] 803 [place], [place] [address]185 Physician Finance And Administration Manager Endocrinology, Diabetes, and Metabolism 03/01/22 Ashlyn Storm, RN [facility] 711 [place], [place] 828114 Registered Nurse 03/03/22 09/15/22 Rubén Gunter [facility] [address] [place] [address] [id number] Assigned MTM Pharmacist 02/27/22 Andressa uRiz PA-C 420 [facility] 803 [place] [address] Assigned Endocrinology Provider 03/13/22 09/07/23 Suzan Harry MD [address] [place] [address] Nephrology 06/30/23 Yasmeen Powers MD 500 [place] [address] Nephrology 10/24/23 Yasmeen Powers MD 500 [place] [address] Assigned Nephrology Provider 11/08/23 documented as of this encounter
--- OUTSIDE RECORDS SUMMARY | 2024-01-26 22:31 | XMS_ITS | Encounter Summary ---
Author Organization [facility] Address [address] [place] [address] Care Team Providers Care Finishing Machine Tender Name Role Phone Rubén Boyle MD Primary Care Provider Pamela Blanco CLAM GRADER Unavailable Pedro Segura MD Unavailable Freddy Craft MD Unavailable Abdifatah Van MD Unavailable Nicole Carranza CLAM GRADER Unavailable [phone] Andressa Ruiz-C Unavailable [phone] Ashlyn Storm RN Unavailable Rubén Gunter [facility] Unavailable Andressa Ruiz-C Unavailable Suzan Harry MD Unavailable [phone] Yasmeen Powers MD Unavailable [phone] Yasmeen Powers MD Unavailable [phone] Encounter Details Date Type Department Care Team (Latest Contact Info) Description 08/24/2017 External Order Results [facility] [address] [place] [address] History of liver transplant [...] Performing Organization Address [facility]/ZIP Co de Phone Number BREEZE PFT LABDE [...] - BLOOD ORD ERABLES Performing Organization Address City/[facility]/ZIP Co de Phone Number AMNAE PFT LABDE [...] as of this encounter Care Teams Finishing Machine Tender Relationship Specialty Start Date End Date Rubén Boyle MD PCP - General Family Practice 03/08/16 Pamela Blanco NP [address] [address] Referring Physician 07/13/[address] [facility] [address] [place], [place] 7[address]67 Nephrology 10/03/16 Freddy Craft MD [facility] [place], [place] [address] Assigned Gastroenterology Provider 02/08/20 Abdifatah Van MD 717 [facility] [address] [place], [place] [address] Assigned Nephrology Provider 07/13/20 11/07/23 Nicole Carranza NP 420 [facility] 508 [place], [place] [address]175 Assigned Heart and Vascular Provider 01/09/22 Andressa Ruiz PA-C 420 [facility] 803 [place], [place] 8[address] Physician Support Engineer Endocrinology, Diabetes, and Metabolism 03/01/22 Ashlyn Storm RN [facility] 711 [place], [place] 8[address]884 Registered Nurse 03/03/22 09/15/22 Rubén Gunter [facility] [address] [place] [address] 826635 Assigned MTM Pharmacist 02/27/22 Andressa Ruiz PA-C 420 [facility] 803 [place], [place] 143245 Assigned Endocrinology Provider 03/13/22 09/07/23 Suzan Harry MD [address] [place] [address] Nephrology 06/30/23 Yasmeen Powers MD 500 [place], [place] 771375 Nephrology 10/24/23 Yasmeen Powers MD 500 [place], [place] 988655 Assigned Nephrology Provider 11/08/23 documented as of this encounter
--- OUTSIDE RECORDS SUMMARY | 2024-01-26 22:31 | XMS_ITS | Encounter Summary ---
Author Organization [facility] Address [address] [place] [address] Care Team Providers Care Manager Filter Name Role Phone Rubén Boyle MD Primary Care Provider Pamela Blanco OUTREACH ASSISTANT Unavailable [phone] Pedro Segura MD Unavailable Freddy Craft MD Unavailable [phone] Abdifatah Van MD Unavailable Nicole Carranza OUTREACH ASSISTANT Unavailable [phone] Andressa Ruiz-C Unavailable Ashlyn Storm RN Unavailable Rubén Gunter [facility] Unavailable Andressa Ruiz-C Unavailable [phone] Suzan Harry MD Unavailable [phone] Yasmeen Powers MD Unavailable [phone] Yasmeen Powers MD Unavailable [phone] Encounter Details Date Type Department Care Team (Latest Contact Info) Description 12/15/2017 External Order Results [facility] 9[address] [place] [address] History of liver transplant [...] - BLOOD ORD ERABLES Performing Organization Address [facility] Co de Phone Number [...] - BLOOD ORD ERALASHAE Performing Organization Address [facility]/ZIP Co de Phone Number BREEZE PFT LABDE [...] as of this encounter Care Teams Manager Filter Relationship Specialty Start Date End Date Rubén Boyle MD PCP - General Family Practice 03/08/16 Pamela Blanco NP [address] [place] [address] Referring Physician 07/13/16 Pedro Segura MD [facility] [address] [place] [address] Nephrology 10/03/16 Freddy Craft MD 516 [facility] 2A [place], [place] 927815 Assigned Gastroenterology Provider 02/08/20 Abdifatah Van MD 717 [facility] [address] [place], [place] [address]14 Assigned Nephrology Provider 07/13/20 11/07/23 Nicole Carranza NP 420 [facility] 508 [place], [place] 937725 Assigned Heart and Vascular Provider 01/09/22 Andressa Ruiz PA-C 420 [facility] 803 [place], [place] [address]45 Physician Applique Sewer Endocrinology, Diabetes, and Metabolism 03/01/22 Ashlyn Storm, RN [facility] 711 [place], [place] 9[address]894 Registered Nurse 03/03/22 09/15/22 Rubén Gunter [facility] [address] [place] [address] [id number] Assigned MTM Pharmacist 02/27/22 Andressa Ruiz PA-C 420 [facility] 803 [place] [address] Assigned Endocrinology Provider 03/13/22 09/07/23 Suzan Harry MD [address] [place] [address] Nephrology 06/30/23 Yasmeen Powers MD 500 [place] [address] Nephrology 10/24/23 Yasmeen Powers MD 500 [place] [address] Assigned Nephrology Provider 11/08/23 documented as of this encounter
--- OUTSIDE RECORDS SUMMARY | 2024-01-26 22:31 | XMS_ITS | Encounter Summary ---
Author Organization [place] Address [address] [place] [address] Care Team Providers Care Project Analyst Name Role Phone Rubén Boyle MD Primary Care Provider [phone] Pamela Blanco PILL MAKER Unavailable Pedro Segura MD Unavailable [phone] Freddy Craft MD Unavailable [phone] Abdifatah Van MD Unavailable Nicole Carranza PILL MAKER Unavailable [phone] Andressa Ruiz-C Unavailable Ashlyn Storm RN Unavailable Rubén Gunter [facility] Unavailable Andressa Ruiz-C Unavailable Suazn Harry MD Unavailable [phone] Yasmeen Powers MD Unavailable [phone] Yasmeen Powers MD Unavailable [phone] Encounter Details Date Type Department Care Team (Latest Contact Info) Description 01/25/2018 External Order Results [facility] [address] [place] [address] History of liver transplant (H); [...] as of this encounter Care Teams Project Analyst Relationship Specialty Start Date End Date Rubén Boyle MD PCP - General Family Practice 03/08/16 Pamela Blanco NP [facility] [address] [place] [address] Referring Physician 07/13/16 Pedro Segura MD [facility] [address] [place] [address] Nephrology 10/03/16 Freddy Craft MD [address] [place] [address] Assigned Gastroenterology Provider 02/08/20 Abdifatah Van MD [address] [place] [address] Assigned Nephrology Provider 07/13/20 11/07/23 Nicole Carranza NP 420 [facility] 508 [place], [place] 44[address]55 Assigned Heart and Vascular Provider 01/09/22 Andressa Ruiz PA-C 420 [facility] 803 [place], [place] [address]75 Physician Acrylic Fabricator Endocrinology, Diabetes, and Metabolism 03/01/22 Ashlyn Storm, RN [facility] 711 [place], [place] 492334 Registered Nurse 03/03/22 09/15/22 Rubén Gunter [facility] [address] [place] [address] 893715 Assigned MTM Pharmacist 02/27/22 Andressa Ruiz PA-C 420 [facility] 803 [place], [place] 447775 Assigned Endocrinology Provider 03/13/22 09/07/23 Suzan Harry MD 420 [place] [address] Nephrology 06/30/23 Yasmeen Powers MD 500 [place], [place] 6[address]605 Nephrology 10/24/23 Yasmeen Powers MD 500 [place] [address] Assigned Nephrology Provider 11/08/23 documented as of this encounter
--- OUTSIDE RECORDS SUMMARY | 2024-01-26 22:31 | XMS_ITS | Encounter Summary ---
Author Organization [facility] Address [address] [place] [address] Care Team Providers Care Sample Sawyer Name Role Phone Rubén Boyle MD Primary Care Provider Pamela Blanco PANEL RAISER OPERATOR Unavailable Pedro Segura MD Unavailable Freddy Craft MD Unavailable Abdifatah Van MD Unavailable Nicole Carranza PANEL RAISER OPERATOR Unavailable [phone] Andressa Ruiz-C Unavailable Ashlyn Storm RN Unavailable Rubén Gunter [facility] Unavailable Andressa Ruiz-C Unavailable Suzan Harry MD Unavailable [phone] Yasmeen Powers MD Unavailable [phone] Yasmeen Powers MD Unavailable [phone] Encounter Details Date Type Department Care Team (Latest Contact Info) Description 07/08/2017 External Order Results [facility] [address] [place] [address] Liver replaced by transplant (H); 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 transplant; half-way use of drug Social History Tobacco Use [...] by transplant (H) 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 transplant terminal carman use of drug MAGNESIUM Routine 07/08/2017 7:56 [...] replaced by transplant half-way use of drug CBC WITH PLATELETS Routine [...] - BLOOD ORD ERABLES Performing Organization Address [facility] Co de Phone Number [facility]FT LABDE SCAN * Phosphorus (07/08/2017 7:56 [...] - BLOOD ORD ERABLES Performing Organization Address [facility]/ZIP Co de Phone Number BREEZE [...] documented as of this encounter Care Teams Sample Sawyer Relationship Specialty Start Date End Date Rubén Boyle MD PCP - General Family Practice 03/08/16 Pamela Blanco NP [facility] [address] [place] [address] Referring Physician 07/13/16 Pedro Segura MD [facility] [address] [place] [address] Nephrology 10/03/16 Freddy Craft MD 516 [facility] [address]A [place] [address] Assigned Gastroenterology Provider 02/08/20 Abdifatah Van MD 717 [facility] [address] [place] [address] Assigned Nephrology Provider 07/13/20 11/07/23 Nicole Carranza, [place] 420 [facility] [address] [place] [address] Assigned Heart and Vascular Provider 01/09/22 Andressa Ruiz PA-C 420 [facility] 803 [place] [address] Physician Diversified Crops Farmer Endocrinology, Diabetes, and Metabolism 03/01/22 Ashlyn Storm, RN [facility] 711 [place] [address] Registered Nurse 03/03/22 09/15/22 Rubén Gunter [facility] [address] [place] [address] Assigned MTM Pharmacist 02/27/22 Andressa Ruiz PA-C 420 [facility] 803 [place] [address] Assigned Endocrinology Provider 03/13/22 09/07/23 Suzan Harry MD 420 [place] [address] Nephrology 06/30/23 Yasmeen Powers MD 500 [place] [address] Nephrology 10/24/23 Yasmeen Powers MD 500 [place], [place] 36[address]05 Assigned Nephrology Provider 11/08/23 documented as of this encounter
--- OUTSIDE RECORDS SUMMARY | 2024-01-26 22:31 | XMS_ITS | Encounter Summary ---
Author Organization [facility] Address [address] [place] [address] Care Team Providers Care Joint Terminal Attack Controller Name Role Phone Rubén Boyle MD Primary Care Provider Pamela Blanco DIRECTOR OF RESTAURANT Unavailable [phone] Pedro Segura MD Unavailable [phone] Freddy Craft MD Unavailable Abdifatah Van MD Unavailable Nicole Carranza DIRECTOR OF RESTAURANT Unavailable [phone] Andressa Ruiz-C Unavailable Ashlyn Storm RN Unavailable [phone] Rubén Gunter [facility] Unavailable Andressa Ruiz-C Unavailable Suzan Harry MD Unavailable [phone] Yasmeen Powers MD Unavailable [phone] Yasmeen Powers MD Unavailable [phone] Encounter Details Date Type Department Care Team (Latest Contact Info) Description 09/28/2017 External Order Results [facility] [address] [place] [address] History of liver transplant (H); [...] - BLOOD ORDERABL ES Performing Organization Address [facility] Co de Phone Number [...] specimen (specimen) 09/20/2017 9:17 AM CDT Narrative ERCIKEZE PFT - 09/28/2017 4:46 PM CDT Verified [...] - BLOOD ORD ERABLES Performing Organization Address City/[facility]/ZIP Co de Phone Number SAMANTHA [...] documented as of this encounter Care Teams Joint Terminal Attack Controller Relationship Specialty Start Date End Date Rubén Boyle MD PCP - General Family Practice 03/08/16 Pamela Blanco NP [facility] [address] [place] [address] Referring Physician 07/13/16 Pedro Segura MD [facility] [address] [place] [address] Nephrology 10/03/16 Freddy Craft MD 516 [facility] [place], [place] [address]95 Assigned Gastroenterology Provider 02/08/20 Abdifatah Van MD 717 [facility] [address] [place], [place] 4[address] Assigned Nephrology Provider 07/13/20 11/07/23 Nicole Carranza NP 420 [facility] 508 [place], [place] 295415 Assigned Heart and Vascular Provider 01/09/22 Andressa Ruiz PA-C 420 [facility] 803 [place] [address] Physician Director Nicu Endocrinology, Diabetes, and Metabolism 03/01/22 Ashlny Storm RN [facility] 711 [place], [place] 913084 Registered Nurse 03/03/22 09/15/22 Rubén Gunter [facility] [address] [place] [address] 877145 Assigned MTM Pharmacist 02/27/22 Andressa Ruiz PA-C 420 [facility] 803 [place], [place] 0[address]205 Assigned Endocrinology Provider 03/13/22 09/07/23 Suzan Harry MD 420 [place], [place] 9[address]275 Nephrology 06/30/23 Yasmeen Powers MD 500 [place], [place] 268035 Nephrology 10/24/23 Yasmeen Powers MD 500 [place], [place] 507735 Assigned Nephrology Provider 11/08/23 documented as of this encounter
--- OUTSIDE RECORDS SUMMARY | 2024-01-26 22:31 | XMS_ITS | Encounter Summary ---
Author Organization [place] Address [address] [place] [address] Care Team Providers Care Administrative Assistant Name Role Phone Rubén Boyle MD Primary Care Provider Pamela Blanco FRONT END LOADER OPERATOR Unavailable [phone] Pedro Segura MD Unavailable Freddy Craft MD Unavailable Abdifatah Van MD Unavailable Nicole Carranza FRONT END LOADER OPERATOR Unavailable [phone] Andressa Ruiz-C Unavailable Ashlyn Storm RN Unavailable Rubén Gunter [facility] Unavailable Andressa Ruiz-C Unavailable [phone] Suzan Harry MD Unavailable [phone] Yasmeen Powers MD Unavailable [phone] Yasmeen Powers MD Unavailable [phone] Encounter Details Date Type Department Care Team (Latest Contact Info) Description 11/04/2017 External Order Results [facility] [address] [place] [address] History of liver transplant (H); [...] - BLOOD ORD ERALASHAE Performing Organization Address [facility] Co de Phone Number BREEZE PFT LABDE SCAN * Magnesium (11/04/2017 9:16 AM CDT) Magnesium (External) 2.2 1.6 - 2.6 mg/dL LABDE SCAN Blood specimen (specimen) 11/04/2017 9:16 AM CDT Narrative BREEZE PFT - 11/07/2017 8:39 AM CDT Verified by Myrna Monreal on 11/07/2017. Freddy Dumont MD LAB - BLOOD ORD ERALASHAE Performing Organization Address City/[facility]/ZIP Co de Phone Number BREEZE PFT LABDE [...] as of this encounter Care Teams Administrative Assistant Relationship Specialty Start Date End Date Rubén Boyle MD PCP - General Family Practice 03/08/16 Pamela Blanco NP [address] [place] [address] Referring Physician 07/13/16 Pedro Segura MD [facility] [address] [place] [address] Nephrology 10/03/16 Freddy Craft MD [address] [facility] [address] [place], [place] [address] Assigned Gastroenterology Provider 02/08/20 Abdifatah Van MD [address] [facility] [address] [place], [place] [address] Assigned Nephrology Provider 07/13/20 11/07/23 Nicole Carranza NP 420 [facility] 508 [place], [place] [address] Assigned Heart and Vascular Provider 01/09/22 Andressa Ruiz PA-C 420 [facility] 803 [place], [place] [address] Physician Field Services Manager Endocrinology, Diabetes, and Metabolism 03/01/22 Ashlyn Storm, RN [facility] 711 [place], [place] [address] Registered Nurse 03/03/22 09/15/22 Rubén Gunter [facility] [address] [place] [id number] Assigned MTM Pharmacist 02/27/22 Andressa Ruiz PA-C 420 [facility] 803 [place] [address] Assigned Endocrinology Provider 03/13/22 09/07/23 Suzan Harry MD [address] [place] [address] Nephrology 06/30/23 Yasmeen Powers MD 500 [place] [address] Nephrology 10/24/23 Yasmeen Powers MD 500 [place] [address] Assigned Nephrology Provider 11/08/23 documented as of this encounter
--- OUTSIDE RECORDS SUMMARY | 2024-01-26 22:32 | XMS_ITS | Encounter Summary ---
Author Organization [facility] Address [address] [place] [address] Care Team Providers Care Upholsterer Helper Name Role Phone Rubén Boyle MD Primary Care Provider Pamela Blanco SUPERINTENDENT TRANSMISSION Unavailable Pedro Segura MD Unavailable Freddy Craft MD Unavailable Abdifatah Van MD Unavailable Nicole Carranza SUPERINTENDENT TRANSMISSION Unavailable [phone] Andressa Ruiz-C Unavailable Ashlyn Storm RN Unavailable [phone] Rubén Gunter [facility] Unavailable Andressa Ruiz-C Unavailable [phone] Suzan Harry MD Unavailable [phone] Yasmeen Powers MD Unavailable [phone] Yasmeen Powers MD Unavailable [phone] Encounter Details Date Type Department Care Team (Late st Contact Info) Description 03/23/2017 [facility] [address] [place] [address] Christina Joseph RN Social History [...] documented as of this encounter Care Teams Upholsterer Helper Relationship Specialty Start Date End Date Rubén Boyle MD PCP - General Family Practice 03/08/16 Pamela Blanco NP [facility] [address] [place], [place] [address] Referring Physician 07/13/16 Pedro Segura MD [facility] [address] [place], [place] [address] Nephrology 10/03/16 Freddy Craft MD 516 [facility] [place], [place] [address] Assigned Gastroenterology Provider 02/08/20 Abdifatah Van MD [address] [facility] [address] [place] [address] Assigned Nephrology Provider 07/13/20 11/07/23 Nicole Carranza NP 420 [facility] 508 [place] [address] Assigned Heart and Vascular Provider 01/09/22 Andressa Ruiz PA-C [address] [facility] 803 [place] [address] Physician Beet Flumer Endocrinology, Diabetes, and Metabolism 03/01/22 Ashlyn Storm, RN [facility] 711 [place] [address] Registered Nurse 03/03/22 09/15/22 Rubén Gunter [facility] [address] [place] [address] Assigned MTM Pharmacist 02/27/22 Andressa Ruiz PA-C [address] [facility] 803 [place] [address] Assigned Endocrinology Provider 03/13/22 09/07/23 Suzan Harry MD 420 [place] [address] Nephrology 06/30/23 Yasmeen Powers MD 500 [place] [address] Nephrology 10/24/23 Yasmeen Powers MD 500 [place] [address] Assigned Nephrology Provider 11/08/23 documented as of this encounter
--- OUTSIDE RECORDS SUMMARY | 2024-01-26 22:32 | XMS_ITS | Encounter Summary ---
Author Organization [facility] Address [address] [place] [address] Care Team Providers Care Food Production Worker Name Role Phone Rubén Boyle MD Primary Care Provider Pamela Blanco PARTNERSHIP MARKETING MANAGER Unavailable Pedro Segura MD Unavailable [phone] Freddy Craft MD Unavailable Abdifatah Van MD Unavailable Nicole Carranza PARTNERSHIP MARKETING MANAGER Unavailable [phone] Andressa Ruiz-C Unavailable Ashlyn Storm RN Unavailable Rubén Gunetr [facility] Unavailable Andressa Ruiz-C Unavailable Suzan Harry MD Unavailable [phone] Yasmeen Powers MD Unavailable [phone] Yasmeen Powers MD Unavailable [phone] Encounter Details Date Type Department Care Team (Latest Contact Info) Description 04/06/2017 External Order Results [facility] [address] [place] [address] Long-term use of immunosuppressant medication; [...] Diagnosis Comments PHOSPHORUS Routine 04/05/2017 8:00 AM LASER ENGRAVER Long-term use of immunosuppressant medication Liver replaced by transplant (H) MAGNESIUM Routine 04/05/2017 8:00 AM LASER ENGRAVER Long-term use of immunosuppressant medication Liver replaced by transplant (H) HEPATIC FUNCTION PANEL Routine 04/05/2017 8:00 AM LASER ENGRAVER Long-term use of immunosuppressant medication Liver replaced by transplant (H) DIFFERENTIAL Routine 04/05/2017 8:00 AM LASER ENGRAVER BASIC METABOLIC PANEL Routine 04/05/2017 8:00 AM LASER ENGRAVER Long-term use of immunosuppressant medication Liver replaced by transplant (H) CBC WITH PLATELETS Routine 04/05/2017 8: 00 AM LASER ENGRAVER Long-term use of immunosuppressant medication Liver replaced by transplant (H) documented in this encounter Results * (ABNORMAL) WBC Differential (04/05/2017 8:00 AM LASER ENGRAVER) % Neutrophils (External) 48.9 42.0 - 72.0 [...] SCAN Blood specimen (specimen) 04/05/2017 8:00 AM LASER ENGRAVER Narrative AMNAE PFT - 04/06/2017 8:24 AM LASER ENGRAVER Verified by Cruzito Marlow on 04/06/2017. Patient Reported LAB - BLOOD ORDERABL ES SAMANTHA PFT LABDE SCAN * (ABNORMAL) CBC with platelets (04/05/2017 8:00 AM LASER ENGRAVER) WBC Count (External) 2.9(L) 4.5 - 11.0 [...] SCAN Blood specimen (specimen) 04/05/2017 8:00 AM LASER ENGRAVER Narrative SAMANTHA PFT - 04/06/2017 8:24 AM LASER ENGRAVER Verified by Cruzito Marlow on 04/06/2017. Aime Vu MD LAB - BLOOD ORDERA BLES Performing Organization Address [facility] Co de Phone Number BREEZE PFT LABDE SCAN * Phosphorus (04/05/2017 8:00 AM LASER ENGRAVER) Phosphorus (External) 3.0 2.3 - 4.7 mg/dL LABDE SCAN Blood specimen (specimen) 04/05/2017 8:00 AM LASER ENGRAVER Narrative BREEZE PFT - 04/06/2017 8:24 AM LASER ENGRAVER Verified by Cruzito Marlow on 04/06/2017. Aime Vu MD LAB - BLOOD ORDERA BLES Performing Organization Address [facility] de Phone Number BREEZE PFT LABDE SCAN * (ABNORMAL) Hepatic panel (04/05/2017 8:00 AM LASER ENGRAVER) Albumin (External) 4.2 3.2 - 4.6 g/dL [...] SCAN Blood specimen (specimen) 04/05/2017 8:00 AM LASER ENGRAVER Narrative BREEZE PFT - 04/06/2017 8:24 AM LASER ENGRAVER Verified by Cruzito Marlow on 04/06/2017. Aime Vu MD LAB - BLOOD ORDERA BLES Performing Organization Address [facility] de Phone Number BREEZE PFT LABDE SCAN * (ABNORMAL) Basic metabolic panel (04/05/2017 8:00 AM LASER ENGRAVER) Sodium (External) 138 135 - 145 mmol/L [...] SCAN Blood specimen (specimen) 04/05/2017 8:00 AM LASER ENGRAVER Narrative BREEZE PFT - 04/06/2017 8:24 AM LASER ENGRAVER Verified by Cruzito Marlow on 04/06/2017. Aime Vu MD LAB - BLOOD ORDERA BLES BREE[facility] PFT LABDE SCAN * (ABNORMAL) Magnesium (04/05/2017 8:00 AM LASER ENGRAVER) Magnesium (External) 1.0(LL) 1.6 - 2.6 mg/dL LABDE SCAN Blood specimen (specimen) 04/05/2017 8:00 AM LASER ENGRAVER Narrative BREEZE PFT - 04/06/2017 8:08 AM LASER ENGRAVER Verified by Cruzito Marlow on 04/06/2017. Aime [...] as of this encounter Care Teams Food Production Worker Relationship Specialty Start Date End Date Rubén Boyle MD PCP - General Family Practice 03/08/16 Pamela Blanco, PARTNERSHIP MARKETING MANAGER [facility] [address] [place] [address] Referring Physician 07/13/16 Pedro Segura MD [facility] [address] [place] [address] Nephrology 10/03/16 Freddy Craft MD 516 [facility] [address] [place], [place] [address] Assigned Gastroenterology Provider 02/08/20 Abdifatah Van MD [address] [place], [place] [address] Assigned Nephrology Provider 07/13/20 11/07/23 Nicole Carranza NP [address] [facility] [address] [place], [place] [address] Assigned Heart and Vascular Provider 01/09/22 Andressa Ruiz PA-C [address] [facility] [address] [place], [place] [address] Physician Busboy Endocrinology, Diabetes, and Metabolism 03/01/22 Ashlyn Storm, RN [facility] 711 [place] [address] Registered Nurse 03/03/22 09/15/22 Rubén Gunter [facility] 909 [place] [address] Assigned MTM Pharmacist 02/27/22 Andressa Ruiz PA-C [address] [facility] 803 [place] [address] Assigned Endocrinology Provider 03/13/22 09/07/23 Suzan Harry MD 420 [place] [address] Nephrology 06/30/23 Yasmeen Powers MD 500 [place] [address] Nephrology 10/24/23 Yasmeen Powers MD [address] [place] [address] Assigned Nephrology Provider 11/08/23 documented as of this encounter
--- OUTSIDE RECORDS SUMMARY | 2024-01-26 22:32 | XMS_ITS | Encounter Summary ---
Author Organization [place] Address [address] [place] [address] Care Team Providers Care Custom Designer Name Role Phone Rubén Boyle MD Primary Care Provider [phone] Pamela Blanco CATALOGUE CLERK Unavailable [phone] Pedro Segura MD Unavailable [phone] Freddy Craft MD Unavailable Abdifatah Van MD Unavailable Nicole Carranza CATALOGUE CLERK Unavailable [phone] Andressa Ruiz-C Unavailable Ashlyn Storm RN Unavailable [phone] Rubén Gunter [facility] Unavailable Andressa Ruiz-C Unavailable Suzan Harry MD Unavailable [phone] Yasmeen Powers MD Unavailable [phone] Yasmeen Powers MD Unavailable [phone] Encounter Details Date Type Department Care Team (Latest Contact Info) Description 04/21/2017 External Order Results [facility] [address] [place] [address] Long-term use of immunosuppressant medication; [...] Diagnosis Comments PHOSPHORUS Routine 04/19/2017 9:45 AM ADMISSION SPECIALIST Long-term use of immunosuppressant medication Liver replaced by transplant (H) MAGNESIUM Routine 04/19/2017 9:45 AM ADMISSION SPECIALIST Long-term use of immunosuppressant medication Liver replaced by transplant (H) HEPATIC FUNCTION PANEL Routine 04/19/2017 9:45 AM ADMISSION SPECIALIST Long-term use of immunosuppressant medication Liver replaced by transplant (H) BASIC METABOLIC PANEL Routine 04/19/2017 9:45 AM ADMISSION SPECIALIST Long-term use of immunosuppressant medication Liver replaced by transplant (H) CBC WITH PLATELETS Routine 04/19/2017 9: 45 AM ADMISSION SPECIALIST Long-term use of immunosuppressant medication Liver replaced by transplant (H) documented in this encounter Results * Phosphorus (04/19/2017 9:45 AM ADMISSION SPECIALIST) Phosphorus (External) 2.7 2.3 - 4.7 mg/dL LABDE SCAN Blood specimen (specimen) 04/19/2017 9:45 AM ADMISSION SPECIALIST Narrative SAMANTHA PFT - 04/21/2017 2:28 PM ADMISSION SPECIALIST Verified by Myrna Monreal on 04/21/2017. Aime Vu MD LAB - BLOOD ORDERA BLES SAMANTHA PFT LABDE SCAN * (ABNORMAL) Magnesium (04/19/2017 9:45 AM ADMISSION SPECIALIST) Magnesium (External) 1.5(L) 1.6 - 2.6 mg/dL LABDE SCAN Blood specimen (specimen) 04/19/2017 9:45 AM ADMISSION SPECIALIST [facility] ERICKE PFT - 04/21/2017 2:28 PM ADMISSION SPECIALIST Verified by Myrna Monreal on 04/21/2017. Aime Vu MD LAB - BLOOD ORDERA BLES Performing Organization Address [facility] de Phone Number [facility] * Hepatic panel (04/19/2017 9:45 AM ADMISSION SPECIALIST) Albumin (External) 3.9 3.2 - 4.6 g/dL [...] SCAN Blood specimen (specimen) 04/19/2017 9:45 AM ADMISSION SPECIALIST [facility] PFT - 04/21/2017 2:28 PM ADMISSION SPECIALIST Verified by Myrna Monreal on 04/21/2017. Aime Vu MD LAB - BLOOD ORDERA BLEMarkel Performing Organization Address [facility] Co de Phone Number [facility] LABDE SC[facility] * (ABNORMAL) CBC with platelets (04/19/2017 9:45 AM ADMISSION SPECIALIST) WBC Count (External) 2.7(L) 4.5 - [...] SCAN Blood specimen (specimen) 04/19/2017 9:45 AM ADMISSION SPECIALIST Narrative AMNAE PFT - 04/21/2017 2:28 PM ADMISSION SPECIALIST Verified by Myrna Monreal on 04/21/2017. Aime Vu MD LAB - BLOOD ORDERA BLES SAMANTHA PFT LABDE SCAN * (ABNORMAL) Basic metabolic panel (04/19/2017 9:45 AM ADMISSION SPECIALIST) Sodium (External) 136 135 - 145 mmol/L [...] SCAN Blood specimen (specimen) 04/19/2017 9:45 AM ADMISSION SPECIALIST Narrative BREEZE PFT - 04/21/2017 2:28 PM ADMISSION SPECIALIST Verified by Myrna Monreal on 04/21/2017. Aime [...] documented as of this encounter Care Teams Custom Designer Relationship Specialty Start Date End Date Rubén Boyle MD PCP - General Family Practice 03/08/16 Pamela Blanco CATALOGUE CLERK [facility] [address] [place], [place] [address] Referring Physician 07/13/[address] [facility] [address] [place], [place] [address] Nephrology 10/03/16 Freddy Craft MD [address] [facility] [place] [address] Assigned Gastroenterology Provider 02/08/20 Abdifatah Van MD 717 [facility] [address] [place] [address] Assigned Nephrology Provider 07/13/20 11/07/23 Nicole Carranza NP 420 [facility] [address] [place] [address] Assigned Heart and Vascular Provider 01/09/22 Andressa Ruiz PA-C [address] [facility] 803 [place] [address] Physician Tip Out Worker Endocrinology, Diabetes, and Metabolism 03/01/22 Ashlyn Storm, RN [facility] 711 [place] [address] Registered Nurse 03/03/22 09/15/22 Rubén Gunter [facility] [address] [place] [address] Assigned MTM Pharmacist 02/27/22 Andressa Ruiz PA-C [address] [facility] 803 [place] [address] Assigned Endocrinology Provider 03/13/22 09/07/23 Suzan Harry MD [address] [place] [address] Nephrology 06/30/23 Yasmeen Powers MD 500 [place] [address] Nephrology 10/24/23 Yasmeen Powers MD [address] [place] [address] Assigned Nephrology Provider 11/08/23 documented as of this encounter
--- OUTSIDE RECORDS SUMMARY | 2024-01-26 22:32 | XMS_ITS | Encounter Summary ---
Author Organization [place] Address [address] [place] [address] Care Team Providers Care Coal Getter Name Role Phone Ruébn Boyle MD Primary Care Provider Pamela Blanco JEWEL BEARING POLISHER Unavailable Pedro Segura MD Unavailable Freddy Craft MD Unavailable Abdifatah Van MD Unavailable Nicole Carranza JEWEL BEARING POLISHER Unavailable [phone] Andressa Ruiz-C Unavailable Ashlyn Storm RN Unavailable [phone] Rubén Gunter [facility] Unavailable Andressa Ruiz-C Unavailable Suzan Harry MD Unavailable [phone] Yasmeen Powers MD Unavailable [phone] Yasmeen Powers MD Unavailable [phone] Encounter Details Date Type Department Care Team (Latest Contact Info) Description 04/08/2017 External Order Results [facility] [address] [place] [address] Long-term use of immunosuppressant medication; [...] Diagnosis Comments PHOSPHORUS Routine 04/06/2017 12:14 PM FRONT OFFICE REPRESENTATIVE Long-term use of immunosuppressant medication Liver replaced by transplant (H) MAGNESIUM Routine 04/06/2017 12:14 PM FRONT OFFICE REPRESENTATIVE Long-term use of immunosuppressant medication Liver replaced by transplant (H) HEPATIC FUNCTION PANEL Routine 04/06/2017 12:14 PM FRONT OFFICE REPRESENTATIVE Long-term use of immunosuppressant medication Liver replaced by transplant (H) BASIC METABOLIC PANEL Routine 04/06/2017 12:14 PM FRONT OFFICE REPRESENTATIVE Long-term use of immunosuppressant medication Liver replaced by transplant (H) CBC WITH PLATELETS Routine 04/06/2017 12 :14 PM FRONT OFFICE REPRESENTATIVE Long-term use of immunosuppressant medication Liver replaced by transplant (H) documented in this encounter Results * Phosphorus (04/06/2017 12:14 PM FRONT OFFICE REPRESENTATIVE) Phosphorus (External) 2.3 2.3 - 4.7 mg/dL LABDE SCAN Blood specimen (specimen) 04/06/2017 12:14 PM FRONT OFFICE REPRESENTATIVE Narrative SAMANTHA PFT - 04/08/2017 4:18 PM FRONT OFFICE REPRESENTATIVE Verified by Myrna Monreal on 04/08/2017. Aime Vu MD LAB - BLOOD ORDERA BLES BREEZE PFT LABDE SCAN * (ABNORMAL) Magnesium (04/06/2017 12:14 PM FRONT OFFICE REPRESENTATIVE) Magnesium (External) 1.3(L) 1.6 - 2.6 mg/dL LABDE SCAN Blood specimen (specimen) 04/06/2017 12:14 PM FRONT OFFICE REPRESENTATIVE Narrative BREEZE PFT - 04/08/2017 4:18 PM FRONT OFFICE REPRESENTATIVE Verified by Myrna Monreal on 04/08/2017. Aime Vu MD LAB - BLOOD ORDERA BLES Performing Organization Address [facility] Co de Phone Number [facility] LABDE SCAN * Hepatic panel (04/06/2017 12:14 PM FRONT OFFICE REPRESENTATIVE) Albumin (External) 4.0 3.2 - 4.6 [...] SCAN Blood specimen (specimen) 04/06/2017 12:14 PM FRONT OFFICE REPRESENTATIVE Narrative [facility] - 04/08/2017 4:18 PM FRONT OFFICE REPRESENTATIVE Verified by Myrna Monreal on 04/08/2017. Aime Vu MD LAB - BLOOD ORDERA BLES Performing Organization Address [facility] Co de Phone Number [facility] LABDE SCAN * (ABNORMAL) CBC with platelets (04/06/2017 12:14 PM FRONT OFFICE REPRESENTATIVE) WBC Count (External) 2.7(L) 4.5 - [...] SCAN Blood specimen (specimen) 04/06/2017 12:14 PM FRONT OFFICE REPRESENTATIVE Narrative SAMANTHA PFT - 04/08/2017 4:18 PM FRONT OFFICE REPRESENTATIVE Verified by Myrna Monreal on 04/08/2017. Aime Vu MD LAB - BLOOD ORDERA BLES SAMANTHA PFT LABDE SCAN * (ABNORMAL) Basic metabolic panel (04/06/2017 12:14 PM FRONT OFFICE REPRESENTATIVE) Sodium (External) 139 135 - 145 [...] SCAN Blood specimen (specimen) 04/06/2017 12:14 PM FRONT OFFICE REPRESENTATIVE Narrative SAMANTHA PFT - 04/08/2017 4:18 PM FRONT OFFICE REPRESENTATIVE Verified by Myrna Monreal on 04/08/2017. [...] documented as of this encounter Care Teams Coal Getter Relationship Specialty Start Date End Date Rubén Boyle MD PCP - General Family Practice 03/08/16 Pamela Blanco NP [facility] [address] [place], [place] [address] Referring Physician 07/13/16 Pedro Segura MD [facility] [address] [place], [place] [address] Nephrology 10/03/16 Freddy Craft MD 516 [facility] [address] [place], [place] [address] Assigned Gastroenterology Provider 02/08/20 Abdifatah Van MD 717 [facility] [address] [place], [place] [address] Assigned Nephrology Provider 07/13/20 11/07/23 Nicole Carranza NP [address] [place] [address] 508 [place] [address] Assigned Heart and Vascular Provider 01/09/22 Andressa Ruiz PA-C 420 [facility] 803 [place] [address] Physician Transmission Engineer Endocrinology, Diabetes, and Metabolism 03/01/22 Ashlyn Storm, RN [facility] 711 [place] [address] Registered Nurse 03/03/22 09/15/22 Rubén Gunter [facility] [address] [place] [address] Assigned MTM Pharmacist 02/27/22 Andressa Ruiz PA-C [address] [place] [address] 803 [place] [address] Assigned Endocrinology Provider 03/13/22 09/07/23 Suzan Harry MD [address] [place] [address] Nephrology 06/30/23 Yasmeen Powers MD 500 [place] [address] Nephrology 10/24/23 Yasmeen Powers MD 500 [place] [address] Assigned Nephrology Provider 11/08/23 documented as of this encounter
--- OUTSIDE RECORDS SUMMARY | 2024-01-26 22:32 | XMS_ITS | Encounter Summary ---
Author Organization [facility] Address [address] [place] [address] Care Team Providers Care Dolly Driver Name Role Phone Rubén Boyle MD Primary Care Provider [phone] Pamela Blanco DESIGNER Unavailable [phone] Pedro Segura MD Unavailable [phone] Freddy Craft MD Unavailable [phone] Abdifatah Van MD Unavailable Nicole Carranza DESIGNER Unavailable [phone] Andressa Ruiz-C Unavailable Ashlyn Storm RN Unavailable Rubén Gunter [facility] Unavailable Andressa Ruiz-C Unavailable Suzan Harry MD Unavailable [phone] Yasmeen Powers MD Unavailable [phone] Yasmeen Powers MD Unavailable [phone] Encounter Details Date Type Department Care Team (Latest Contact Info) Description 06/02/2017 External Order Results [facility] [address] [place] [address] Long-term use of immunosuppressant medication; Liver replaced by transplant (H); 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 transplant; MCC use of drug Social History Tobacco Use [...] TANDEM MASS SPECTROMETRY Routine 05/30/2017 8:57 AM ASIAN STUDIES PROGRAM CHAIR Long-term use of immunosuppressant medication Liver replaced by transplant (H) PHOSPHORUS Routine 05/30/2017 8:57 AM ASIAN STUDIES PROGRAM CHAIR Liver replaced by transplant (H) 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 transplant MCC use of drug MAGNESIUM Routine 05/30/2017 8:57 AM ASIAN STUDIES PROGRAM CHAIR Liver replaced by transplant (H) 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 transplant MCC use of drug HEPATIC FUNCTION PANEL Routine 05/30/2017 8:57 AM ASIAN STUDIES PROGRAM CHAIR Liver replaced by transplant (H) 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 transplant MCC use of drug BASIC METABOLIC PANEL Routine 05/30/2017 8:57 AM ASIAN STUDIES PROGRAM CHAIR Liver replaced by transplant (H) 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 transplant MCC use of drug CBC WITH PLATELETS Routine 05/30/2017 8: 57 AM ASIAN STUDIES PROGRAM CHAIR Liver replaced by transplant (H) 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 transplant terminal makeup operator use of drug documented in this encounter Results * Phosphorus (05/30/2017 8:57 AM ASIAN STUDIES PROGRAM CHAIR) Phosphorus (External) 4.4 2.3 - 4.7 mg/dL LABDE SCAN Blood specimen (specimen) 05/30/2017 8:57 AM ASIAN STUDIES PROGRAM CHAIR Narrative SAMANTHA PFT - 06/02/2017 2:39 PM ASIAN STUDIES PROGRAM CHAIR Verified by Myrna Monreal on 06/02/2017. Freddy Dumont MD LAB - BLOOD ORD ERABLES BREEZE PFT LABDE SCAN * Magnesium (05/30/2017 8:57 AM ASIAN STUDIES PROGRAM CHAIR) Magnesium (External) 1.9 1.6 - 2.6 mg/dL LABDE SCAN Blood specimen (specimen) 05/30/2017 8:57 AM ASIAN STUDIES PROGRAM CHAIR Narrative BREEZE PFT - 06/02/2017 2:39 PM ASIAN STUDIES PROGRAM CHAIR Verified by Myrna Monreal on 06/02/2017. Freddy Dumont MD LAB - BLOOD ORD ERABLES Performing Organization Address [facility]/ZIP Co de Phone Number BREEZE PFT LABDE SCAN * Hepatic panel (Albumin, ALT, AST, Bili, Alk Phos, TP) (05/30/2017 8:57 AM ASIAN STUDIES PROGRAM CHAIR) Albumin (External) 3.7 3.2 - 4.6 g/dL [...] SCAN Blood specimen (specimen) 05/30/2017 8:57 AM ASIAN STUDIES PROGRAM CHAIR Narrative BREEZE PFT - 06/02/2017 2:39 PM ASIAN STUDIES PROGRAM CHAIR Verified by Myrna Monreal on 06/02/2017. Freddy Dumont MD LAB - BLOOD ORD ERABLES BREEZE PFT LABDE SCAN * (ABNORMAL) CBC with platelets (05/30/2017 8:57 AM ASIAN STUDIES PROGRAM CHAIR) WBC Count (External) 2.1(L) 4.5 - 11.0 [...] SCAN Blood specimen (specimen) 05/30/2017 8:57 AM ASIAN STUDIES PROGRAM CHAIR Narrative SAMANTHA KEMP - 06/02/2017 2:39 PM ASIAN STUDIES PROGRAM CHAIR Verified by Myrna Monreal on 06/02/2017. rFeddy Dumont MD LAB - BLOOD ORD ERABLES SAMANTHA PFT LABDE SCAN * (ABNORMAL) Basic metabolic panel (05/30/2017 8:57 AM ASIAN STUDIES PROGRAM CHAIR) Sodium (External) 140 135 - 145 mmol/L [...] SCAN Blood specimen (specimen) 05/30/2017 8:57 AM ASIAN STUDIES PROGRAM CHAIR Narrative BREEZE PFT - 06/02/2017 2:39 PM ASIAN STUDIES PROGRAM CHAIR Verified by Myrna Monreal on 06/02/2017. Freddy Dumont MD LAB - BLOOD ORD ERABLES BREEZE PFT LABDE SCAN * Tacrolimus level (05/30/2017 8:57 AM ASIAN STUDIES PROGRAM CHAIR) Tacrolimus(FK-5 06) (External) 7.4 ng/mL LABDE SCAN Tacrolimus Last Dose (External) Not given LABDE SCAN Blood specimen (specimen) 05/30/2017 8:57 AM ASIAN STUDIES PROGRAM CHAIR Narrative BREEZE PFT - 06/02/2017 2:16 PM ASIAN STUDIES PROGRAM CHAIR Verified by Myrna Monreal on 06/02/2017. 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, 07/10/16 rectal swab 06/21/2016 06/21/2016 documented as of this encounter Care Teams Dolly Driver Relationship Specialty Start Date End Date Rubén Boyle MD PCP - General Family Practice 03/08/16 [place] [address] Referring Physician 07/13/16 Pedro Segura MD [facility] [address] [place], [place] [address]237 Nephrology 10/03/16 Freddy Craft MD 516 [facility] [address] [place], [place] [address] Assigned Gastroenterology Provider 02/08/20 Abdifatah Van MD 717 [facility] [address] [place], [place] [address]794 Assigned Nephrology Provider 07/13/20 11/07/23 Nicole Carranza NP 420 [facility] 508 [place], [place] 891625 Assigned Heart and Vascular Provider 01/09/22 Andressa Ruiz PA-C 420 [facility] 803 [place], [place] 6[address]155 Physician Courtesy Car Driver Endocrinology, Diabetes, and Metabolism 03/01/22 Ashlyn Storm RN [facility] 711 [place], [place] 449164 Registered Nurse 03/03/22 09/15/22 Rubén Gunter [facility] 9[address] [place], [place] 338545 Assigned MTM Pharmacist 02/27/22 Andressa Ruiz PA-C 420 [facility] 803 [place], [place] [address] Assigned Endocrinology Provider 03/13/22 09/07/23 Suzan Harry MD [address] [place] [address] [id number] Nephrology 06/30/23 Yasmeen Powers MD [address] [place], [place] 364545 Nephrology 10/24/23 Yasmeen Powers MD [address] [place], [place] 132655 Assigned Nephrology Provider 11/08/23 documented as of this encounter
--- OUTSIDE RECORDS SUMMARY | 2024-01-26 22:32 | XMS_ITS | Encounter Summary ---
Author Organization [facility] Address [address] [place] [address] Care Team Providers Care Educational/Development Assistant Name Role Phone Rubén Boyle MD Primary Care Provider Pamela Blanco WEIGH BOX TENDER Unavailable [phone] Pedor Segura MD Unavailable Freddy Craft MD Unavailable Abdifatah Van MD Unavailable Nicole Carranza WEIGH BOX TENDER Unavailable [phone] Andressa Ruiz-C Unavailable Ashlyn Storm RN Unavailable Rubén Gunter [facility] Unavailable Andressa Ruiz-C Unavailable Suzan Harry MD Unavailable [phone] Yasmeen Powers MD Unavailable Yasmeen Powers MD Unavailable [phone] Encounter Details Date Type Department Care Team (Latest Contact Info) Description 05/04/[address] [facility] [address] [place] [address] Long-term use of immunosuppressant medication; [...] TANDEM MASS SPECTROMETRY Routine 05/03/2017 9:10 AM STARCH AND PROSIZE MIXER Liver replaced by transplant (H) 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 transplant terminal worker use of drug PHOSPHORUS Routine 05/03/2017 9:10 AM STARCH AND PROSIZE MIXER Long-term use of immunosuppressant medication Liver replaced by transplant (H) MAGNESIUM Routine 05/03/2017 9:10 AM STARCH AND PROSIZE MIXER Long-term use of immunosuppressant medication Liver replaced by transplant (H) HEPATIC FUNCTION PANEL Routine 05/03/2017 9:10 AM STARCH AND PROSIZE MIXER Long-term use of immunosuppressant medication Liver replaced by transplant (H) DIFFERENTIAL Routine 05/03/2017 9:10 AM STARCH AND PROSIZE MIXER BASIC METABOLIC PANEL Routine 05/03/2017 9:10 AM STARCH AND PROSIZE MIXER Long-term use of immunosuppressant medication Liver replaced by transplant (H) CBC WITH PLATELETS Routine 05/03/2017 9: 10 AM STARCH AND PROSIZE MIXER Long-term use of immunosuppressant medication Liver replaced by transplant (H) documented in this encounter Results * Tacrolimus level (05/03/2017 9:10 AM STARCH AND PROSIZE MIXER) Tacrolimus(FK-5 06) (External) 8.2 ng/mL LABDE SCAN Tacrolimus Last Dose (External) 05/02/2017 at 2000 LABDE SCAN Blood specimen (specimen) 05/03/2017 9:10 AM STARCH AND PROSIZE MIXER Narrative BREEZE PFT - 05/05/2017 2:00 PM STARCH AND PROSIZE MIXER Verified by Cruzito Marlow on 05/05/2017. Freddy Dumont MD LAB - BLOOD ORD ERABLES AMNAE PFT LABDE SCAN * (ABNORMAL) WBC Differential (05/03/2017 9:10 AM STARCH AND PROSIZE MIXER) Method (External) Manual Diff LABDE SCAN % [...] SCAN Blood specimen (specimen) 05/03/2017 9:10 AM STARCH AND PROSIZE MIXER Narrative SAMANTHA PFT - 05/04/2017 7:58 AM STARCH AND PROSIZE MIXER Verified by Cruzito Marlow on 05/04/2017. Patient Reported LAB - BLOOD ORDERABL ES BREEZE PFT LABDE SCAN * (ABNORMAL) CBC with platelets (05/03/2017 9:10 AM STARCH AND PROSIZE MIXER) WBC Count (External) 1.9(LL) 4.5 - 11.0 [...] SCAN Blood specimen (specimen) 05/03/2017 9:10 AM STARCH AND PROSIZE MIXER Narrative BREEZE PFT - 05/04/2017 7:58 AM STARCH AND PROSIZE MIXER Verified by Cruzito Marlow on 05/04/2017. Aime Vu MD LAB - BLOOD ORDERA BLES Performing Organization Address City/[facility]/ZIP Co de Phone Number BREEZE PFT LABDE SCAN * Phosphorus (05/03/2017 9:10 AM STARCH AND PROSIZE MIXER) Phosphorus (External) 3.9 2.3 - 4.7 mg/dL LABDE SCAN Blood specimen (specimen) 05/03/2017 9:10 AM STARCH AND PROSIZE MIXER Narrative BREEZE PFT - 05/04/2017 7:58 AM STARCH AND PROSIZE MIXER Verified by Cruzito Marlow on 05/04/2017. Aime Vu MD LAB - BLOOD ORDERA BLES BREEZE PFT LABDE SCAN * Magnesium (05/03/2017 9:10 AM STARCH AND PROSIZE MIXER) Magnesium (External) 1.8 1.6 - 2.6 mg/dL LABDE SCAN Blood specimen (specimen) 05/03/2017 9:10 AM STARCH AND PROSIZE MIXER Narrative BREEZE PFT - 05/04/2017 7:58 AM STARCH AND PROSIZE MIXER Verified by Cruzito Marlow on 05/04/2017. Aime Vu MD LAB - BLOOD ORDERA BLES Performing Organization Address [facility] de Phone Number SAMANTHA PFT LABDE SCAN * (ABNORMAL) Hepatic panel (05/03/2017 9:10 AM STARCH AND PROSIZE MIXER) Albumin (External) 3.7 3.2 - 4.6 g/dL [...] SCAN Blood specimen (specimen) 05/03/2017 9:10 AM STARCH AND PROSIZE MIXER Narrative SAMNATHA PFT - 05/04/2017 7:58 AM STARCH AND PROSIZE MIXER Verified by Cruzito Marlow on 05/04/2017. Aime Vu MD LAB - BLOOD ORDERA BLES Performing Organization Address [facility] de Phone Number SAMANTHA PFT LABDE SCAN * (ABNORMAL) Basic metabolic panel (05/03/2017 9:10 AM STARCH AND PROSIZE MIXER) Sodium (External) 138 135 - 145 mmol/L [...] SCAN Blood specimen (specimen) 05/03/2017 9:10 AM STARCH AND PROSIZE MIXER Narrative SAMANTHA PFT - 05/04/2017 7:58 AM STARCH AND PROSIZE MIXER Verified by Cruzito Marlow on 05/04/2017. 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 [address] [place], [place] [address]127 Referring Physician 07/13/[address] [facility] [address] [place], [place] [address]23[address] Nephrology 10/03/16 Freddy Craft MD [address] [place] [address] [id number] Assigned Gastroenterology Provider 02/08/20 Abdifatah Van MD 717 [facility] [address] [place] [address] Assigned Nephrology Provider 07/13/20 11/07/23 Nicole Carranza NP 420 [facility] 508 [place] [address] Assigned Heart and Vascular Provider 01/09/22 Andressa Ruiz PA-C 420 [facility] 803 [place], [place] [address] Physician Truck Dock Material Mover Endocrinology, Diabetes, and Metabolism 03/01/22 Ashlyn Storm RN [facility] 711 [place], [place] [address]334 Registered Nurse 03/03/22 09/15/22 Rubén Gunter [facility] [address] [place] [address] [id number] Assigned MTM Pharmacist 02/27/22 Andressa Ruiz PA-C 420 [facility] 803 [place] [address] Assigned Endocrinology Provider 03/13/22 09/07/23 Suzan Harry MD 420 [place] [address] Nephrology 06/30/23 Yasmeen Powers MD [address] [place] [address] Nephrology 10/24/23 Yasmeen Powers MD 500 [place] [address] Assigned Nephrology Provider 11/08/23 documented as of this encounter
--- OUTSIDE RECORDS SUMMARY | 2024-01-26 22:32 | XMS_ITS | Encounter Summary ---
Author Organization [facility] Address [address] [place] [address] Care Team Providers Care Transit Coach Operator Name Role Phone Rubén Boyle MD Primary Care Provider Pamela Blanco BAR TENDER Unavailable Pedro Segura MD Unavailable Freddy Craft MD Unavailable Abdifatah Van MD Unavailable Nicole Carranza BAR TENDER Unavailable [phone] Andressa Ruiz-C Unavailable [phone] Ashlyn Storm RN Unavailable Rubén Gunter [facility] Unavailable Andressa Ruiz-C Unavailable Suzan Harry MD Unavailable [phone] Yasmeen Powers MD Unavailable Yasmeen Powers MD Unavailable [phone] Encounter Details Date Type Department Care Team (Late st Contact Info) Description 04/16/2017 External Order Results [facility] [address] [place] [address] Social History Tobacco Use Types [...] TANDEM MASS SPECTROMETRY Routine 04/12/2017 8:32 AM GLAZIER STAINED GLASS documented in this encounter Results * Tacrolimus level (04/12/2017 8:32 AM GLAZIER STAINED GLASS) Tacrolimus(FK-5 06) (External) 4.9 LABDE SCAN Tacrolimus Last Dose (External) 04/11/2017 At 08:00pm LABDE SCAN Blood specimen (specimen) 04/12/2017 8:32 AM GLAZIER STAINED GLASS Narrative SAMANTHA PFT - 04/16/2017 11:00 AM GLAZIER STAINED GLASS Verified by Yamil Santo on 04/16/2017. 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, 07/10/16 rectal swab 06/21/2016 06/21/2016 documented as of this encounter Care Teams Transit Coach Operator Relationship Specialty Start Date End Date Rubén Boyle MD PCP - General Family Practice 03/08/16 Pamela Blanco NP [facility] [place] [address] [place] [address] Referring Physician 07/13/16 Pedro Segura MD [facility] [address] [place] [address] Nephrology 10/03/16 Freddy Craft MD 516 [facility] 2[facility] [place] [address] Assigned Gastroenterology Provider 02/08/20 Abdifatah Van MD 717 [facility] [address] [place] [address] Assigned Nephrology Provider 07/13/20 11/07/23 Nicole Carranza NP 420 [facility] 508 [place], [place] [address] Assigned Heart and Vascular Provider 01/09/22 Andressa Ruiz PA-C 420 [facility] 803 [place], [place] [address] Physician Milk House Worker Endocrinology, Diabetes, and Metabolism 03/01/22 Ashlyn Storm RN [facility] 711 [place] [address] Registered Nurse 03/03/22 09/15/22 Rubén Gunter [facility] [address] [facility] [place] [address] Assigned MTM Pharmacist 02/27/22 Andressa Ruiz PA-C 420 [facility] 803 [place] [address] Assigned Endocrinology Provider 03/13/22 09/07/23 Suzan Harry MD [address] [place] [address] Nephrology 06/30/23 Yasmeen Powers MD 500 [place] [address] Nephrology 10/24/23 Yasmeen Powers MD 500 [place] [address] Assigned Nephrology Provider 11/08/23 documented as of this encounter
--- OUTSIDE RECORDS SUMMARY | 2024-01-26 22:32 | XMS_ITS | Encounter Summary ---
Author Organization [facility] Address [address] [place] [address] Care Team Providers Care Associate Broker Name Role Phone Rubén Boyle MD Primary Care Provider Pamela Blanco SUPERVISOR NURSE Unavailable [phone] Pedro Segura MD Unavailable Freddy Craft MD Unavailable Abdifatah Van MD Unavailable Nicole Carranza SUPERVISOR NURSE Unavailable [phone] Andressa Ruiz-C Unavailable [phone] Ashlyn Storm RN Unavailable Rubén Gunter [facility] Unavailable Andressa Ruiz-C Unavailable Suzan Harry MD Unavailable [phone] Yasmeen Powers MD Unavailable [phone] Yasmeen Powers MD Unavailable [phone] Encounter Details Date Type Department Care Team (Latest Contact Info) Description 04/14/2017 External Order Results [facility] [address] [place] [address] Long-term use of immunosuppressant medication; [...] Diagnosis Comments PHOSPHORUS Routine 04/12/2017 8:32 AM DAIRY WORKER Long-term use of immunosuppressant medication Liver replaced by transplant (H) MAGNESIUM Routine 04/12/2017 8:32 AM DAIRY WORKER Long-term use of immunosuppressant medication Liver replaced by transplant (H) HEPATIC FUNCTION PANEL Routine 04/12/2017 8:32 AM DAIRY WORKER Long-term use of immunosuppressant medication Liver replaced by transplant (H) BASIC METABOLIC PANEL Routine 04/12/2017 8:32 AM DAIRY WORKER Long-term use of immunosuppressant medication Liver replaced by transplant (H) CBC WITH PLATELETS Routine 04/12/2017 8: 32 AM DAIRY WORKER Long-term use of immunosuppressant medication Liver replaced by transplant (H) documented in this encounter Results * (ABNORMAL) Phosphorus (04/12/2017 8:32 AM DAIRY WORKER) Phosphorus (External) 2.1(L) 2.3 - 4.7 mg/dL LABDE SCAN Blood specimen (specimen) 04/12/2017 8:32 AM DAIRY WORKER Narrative AMNAKayli PFT - 04/14/2017 8:49 AM DAIRY WORKER Verified by Myrna Monreal on 04/14/2017. Aime Vu MD LAB - BLOOD ORDERA BLEMarkel ERICKCARISA PFT LABDE SCAN * Magnesium (04/12/2017 8:32 AM DAIRY WORKER) Magnesium (External) 1.9 1.6 - 2.6 mg/dL LABDE SCAN Blood specimen (specimen) 04/12/2017 8:32 AM DAIRY WORKER Narrative BREEZE PFT - 04/14/2017 8:49 AM DAIRY WORKER Verified by Myrna Monreal on 04/14/2017. Aime Vu MD LAB - BLOOD ORDERA BLES Performing Organization Address [facility] Co de Phone Number [facility] LABDE SC[facility] * Hepatic panel (04/12/2017 8:32 AM DAIRY WORKER) Albumin (External) 4.0 3.2 - 4.6 g/dL [...] SCAN Blood specimen (specimen) 04/12/2017 8:32 AM DAIRY WORKER Narrative AMNAE PFT - 04/14/2017 8:48 AM DAIRY WORKER Verified by Myrna Monreal on 04/14/2017. Aime Vu MD LAB - BLOOD ORDERA BLEMarkel Performing Organization Address [facility] Co de Phone Number [facility] LABDE SCAN * (ABNORMAL) CBC with platelets (04/12/2017 8:32 AM DAIRY WORKER) WBC Count (External) 2.7(L) 4.5 - 11.0 [...] SCAN Blood specimen (specimen) 04/12/2017 8:32 AM DAIRY WORKER Narrative BREEZE PFT - 04/14/2017 8:48 AM DAIRY WORKER Verified by Myrna Monreal on 04/14/2017. Aime Vu MD LAB - BLOOD ORDERA BLES BREEZE PFT LABDE SCAN * (ABNORMAL) Basic metabolic panel (04/12/2017 8:32 AM DAIRY WORKER) Sodium (External) 141 135 - 145 mmol/L [...] SCAN Blood specimen (specimen) 04/12/2017 8:32 AM DAIRY WORKER Narrative BREEZE PFT - 04/14/2017 8:48 AM DAIRY WORKER Verified by Myrna Monreal on 04/14/2017. Aime [...] documented as of this encounter Care Teams Associate Broker Relationship Specialty Start Date End Date Rubén Boyle MD PCP - General Family Practice 03/08/16 Pamela Blanco NP [facility] [address] [place], [place] [address] Referring Physician 07/13/16 Pedro Segura MD [facility] [address] [place], [place] [address] Nephrology 10/03/16 Freddy Craft MD 516 [facility] 2[facility] [place] [address] Assigned Gastroenterology Provider 02/08/20 Abdifatah Van MD 7[address] [facility] [address] [place] [address] Assigned Nephrology Provider 07/13/20 11/07/23 Nicole Carranza NP 420 [facility] 508 [place], [place] [phone] Assigned Heart and Vascular Provider 01/09/22 Andressa Ruiz PA-C 420 [facility] 803 [place] [address] Physician Tamale Maker Endocrinology, Diabetes, and Metabolism 03/01/22 Ashlyn Storm, RN [facility] 711 [place] [address] Registered Nurse 03/03/22 09/15/22 Rubén Gunter [facility] [address] [place] [address] Assigned MTM Pharmacist 02/27/22 Andressa Ruiz PA-C 420 [facility] 803 [place] [address] Assigned Endocrinology Provider 03/13/22 09/07/23 Suzan Harry MD [address] [place] [address] Nephrology 06/30/23 Yasmeen Powers MD 500 [place] [address] Nephrology 10/24/23 Yasmeen Powers MD 500 [place] [address] Assigned Nephrology Provider 11/08/23 documented as of this encounter
--- OUTSIDE RECORDS SUMMARY | 2024-01-26 22:32 | XMS_ITS | Encounter Summary ---
Author Organization [place] Address [address] [place] [address] Care Team Providers Care Sales Engineer Name Role Phone Rubén Boyle MD Primary Care Provider Pamela Blanco LOCKSTITCH FRONT MAKER Unavailable Pedro Segura MD Unavailable [phone] Freddy Craft MD Unavailable Abdifatah Van MD Unavailable Nicole Carranza LOCKSTITCH FRONT MAKER Unavailable [phone] Andressa Ruiz-C Unavailable Ashlyn Storm RN Unavailable Rubén Gunter [facility] Unavailable Andressa Ruiz-C Unavailable [phone] Suzan Harry MD Unavailable [phone] Yasmeen Powers MD Unavailable [phone] Yasmeen Powers MD Unavailable [phone] Encounter Details Date Type Department Care Team (Latest Contact Info) Description 04/06/2017 External Order Results [facility] [address] [place] [address] Liver replaced by transplant (H); 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 transplant; jail use of drug Social History Tobacco Use [...] TANDEM MASS SPECTROMETRY Routine 04/05/2017 8:00 AM DIVERSITY MANAGER Liver replaced by transplant (H) 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 transplant terminal press operator use of drug documented in this encounter Results * Tacrolimus level (04/05/2017 8:00 AM DIVERSITY MANAGER) Tacrolimus(FK-5 06) (External) 13.0 ng/mL LABDE SCAN Tacrolimus Last Dose (External) Not given LABDE SCAN Blood specimen (specimen) 04/05/2017 8:00 AM DIVERSITY MANAGER Narrative SAMANTHA PFT - 04/07/2017 3:48 PM DIVERSITY MANAGER Verified by Cruzito Marlow on 04/07/2017. 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 [address] [place] [address] Referring Physician 07/13/[address] [facility] [address] [place] [address] Nephrology 10/03/16 Freddy Craft MD 516 [facility] [place], [place] [address] Assigned Gastroenterology Provider 02/08/20 Abdifatah Van MD [address] [facility] [address] [place] [address] Assigned Nephrology Provider 07/13/20 11/07/23 Nicole Carranza NP 420 [facility] 508 [place], [place] [address] Assigned Heart and Vascular Provider 01/09/22 Andressa Ruiz PA-C 420 [facility] 803 [place], [place] [address] Physician Back Hand Endocrinology, Diabetes, and Metabolism 03/01/22 Ashlyn Storm, RN [facility] 711 [place] [address] Registered Nurse 03/03/22 09/15/22 Rubén Gunter [facility] 909 [facility] [place] [address] Assigned MTM Pharmacist 02/27/22 Andressa Ruiz PA-C 420 [facility] 803 [place] [address] Assigned Endocrinology Provider 03/13/22 09/07/23 Suzan Harry MD 420 [place] [address] Nephrology 06/30/23 Yasmeen Powers MD 500 [place] [address] Nephrology 10/24/23 Yasmeen Powers MD 500 [place] [address] Assigned Nephrology Provider 11/08/23 documented as of this encounter
--- OUTSIDE RECORDS SUMMARY | 2024-01-26 22:32 | XMS_ITS | Encounter Summary ---
Author Organization [place] Address [address] [place] [address] Care Team Providers Care Industrial Controller Name Role Phone Rubén Boyle MD Primary Care Provider [phone] Pamela Blanco SUPERVISOR PHOSPHORUS PROCESSING Unavailable Pedro Segura MD Unavailable Freddy Craft MD Unavailable [phone] Abdifatah Van MD Unavailable Nicole Carranza SUPERVISOR PHOSPHORUS PROCESSING Unavailable [phone] Andressa Ruiz-C Unavailable Ashlyn Storm RN Unavailable Rubén Gunter [facility] Unavailable Andressa Ruiz-C Unavailable Suzan Harry MD Unavailable [phone] Yasmeen Powers MD Unavailable [phone] Yasmeen Powers MD Unavailable [phone] Encounter Details Date Type Department Care [...] as of this encounter Care Teams Industrial Controller Relationship Specialty Start Date End Date Rubén Boyle MD PCP - General Family Practice 03/08/16 Pamela Blanco NP [facility] [address] [place], [place] [address] Referring Physician 07/13/16 Pedro Segura MD [facility] [address] [place] [address] Nephrology 10/03/16 Freddy Craft MD 516 [facility] [address] [address] [place] [address] Assigned Gastroenterology Provider 02/08/20 Abdifatah Van MD [address] [facility] [address] [place] [address] Assigned Nephrology Provider 07/13/20 11/07/23 Nicole Carranza NP 420 [facility] [address] [facility] [address] [place], [place] [address] Assigned Heart and Vascular Provider 01/09/22 Andressa Ruiz PA-C 420 [facility] 803 [place] [address] Physician Director Diversity Endocrinology, Diabetes, and Metabolism 03/01/22 Ashlyn Storm, RN [facility] 711 [place] [address] Registered Nurse 03/03/22 09/15/22 Rubén Gunter [facility] [address] [place] [address] Assigned MTM Pharmacist 02/27/22 Andressa Ruiz PA-C 420 [facility] 803 [place] [address] Assigned Endocrinology Provider 03/13/22 09/07/23 Suzan Harry MD 420 [place] [address] Nephrology 06/30/23 Yasmeen Powers MD 500 [place] [address] Nephrology 10/24/23 Yasmeen Powers MD 500 [place] [address] Assigned Nephrology Provider 11/08/23 documented as of this encounter
--- OUTSIDE RECORDS SUMMARY | 2024-01-26 22:32 | XMS_ITS | Encounter Summary ---
Author Organization [place] Address [address] [place] [address] Care Team Providers Care Screening Specialist Name Role Phone Rubén Boyle MD Primary Care Provider Pamela Blanco CELLULAR BIOLOGIST Unavailable Pedro Segura MD Unavailable Freddy Craft MD Unavailable Abdifatah Van MD Unavailable Nicole Carranza CELLULAR BIOLOGIST Unavailable [phone] Andressa Ruiz-C Unavailable [phone] Ashlyn Storm RN Unavailable Rubén Gunter [facility] Unavailable Andressa Ruiz-C Unavailable Suzan Harry MD Unavailable [phone] Yasmeen Powers MD Unavailable [phone] Yasmeen Powers MD Unavailable [phone] Encounter Details Date Type Department Care Team (Latest Contact Info) Description 04/27/2017 External Order Results [facility] Transplant [facility] [address] [place] [address] Long-term use of immunosuppressant medication; [...] Diagnosis Comments PHOSPHORUS Routine 04/26/2017 8:55 AM SAND SLINGER OPERATOR Long-term use of immunosuppressant medication Liver replaced by transplant (H) MAGNESIUM Routine 04/26/2017 8:55 AM SAND SLINGER OPERATOR Long-term use of immunosuppressant medication Liver replaced by transplant (H) HEPATIC FUNCTION PANEL Routine 04/26/2017 8:55 AM SAND SLINGER OPERATOR Long-term use of immunosuppressant medication Liver replaced by transplant (H) BASIC METABOLIC PANEL Routine 04/26/2017 8:55 AM SAND SLINGER OPERATOR Long-term use of immunosuppressant medication Liver replaced by transplant (H) CBC WITH PLATELETS Routine 04/26/2017 8: 55 AM SAND SLINGER OPERATOR Long-term use of immunosuppressant medication Liver replaced by transplant (H) documented in this encounter Results * Phosphorus (04/26/2017 8:55 AM SAND SLINGER OPERATOR) Phosphorus (External) 3.9 2.3 - 4.7 mg/dL LABDE SCAN Blood specimen (specimen) 04/26/2017 8:55 AM SAND SLINGER OPERATOR Narrative SAMANTHA PFT - 04/27/2017 6:23 PM SAND SLINGER OPERATOR Verified by Myrna Monreal on 04/27/2017. Aime Vu MD LAB - BLOOD ORDERA BLES SAMANTHA PFT LABDE SCAN * Magnesium (04/26/2017 8:55 AM SAND SLINGER OPERATOR) Magnesium (External) 1.9 1.6 - 2.6 mg/dL LABDE SCAN Blood specimen (specimen) 04/26/2017 8:55 AM SAND SLINGER OPERATOR [facility] PFT - 04/27/2017 6:23 PM SAND SLINGER OPERATOR Verified by Myrna Monreal on 04/27/2017. Aime Vu MD LAB - BLOOD ORDERA BLES Performing Organization Address [facility] de Phone Number [facility] LAB[facility] * Hepatic panel (04/26/2017 8:55 AM SAND SLINGER OPERATOR) Albumin (External) 3.8 3.2 - 4.6 g/dL [...] SCAN Blood specimen (specimen) 04/26/2017 8:55 AM SAND SLINGER OPERATOR [facility] PFT - 04/27/2017 6:23 PM SAND SLINGER OPERATOR Verified by Myrna Monreal on 04/27/2017. Aime Vu MD LAB - BLOOD ORDERA BLES Performing Organization Address [facility] de Phone Number [facility] LABDE SC[facility] * (ABNORMAL) CBC with platelets (04/26/2017 8:55 AM SAND SLINGER OPERATOR) WBC Count (External) 2.2(L) 4.5 - 11.0 [...] SCAN Blood specimen (specimen) 04/26/2017 8:55 AM SAND SLINGER OPERATOR Narrative SAMANTHA PFT - 04/27/2017 6:23 PM SAND SLINGER OPERATOR Verified by Myrna Monreal on 04/27/2017. Aime Vu MD LAB - BLOOD ORDERA BLES SAMANTHA PFT LABDE SCAN * (ABNORMAL) Basic metabolic panel (04/26/2017 8:55 AM SAND SLINGER OPERATOR) Sodium (External) 138 135 - 145 mmol/L [...] SCAN Blood specimen (specimen) 04/26/2017 8:55 AM SAND SLINGER OPERATOR Narrative SAMANTHA PFT - 04/27/2017 6:23 PM SAND SLINGER OPERATOR Verified by Myrna Monreal on 04/27/2017. Aime [...] documented as of this encounter Care Teams Screening Specialist Relationship Specialty Start Date End Date Rubén Boyle MD PCP - General Family Practice 03/08/16 Pamela Blanco NP [facility] [address] [place], [place] [address] Referring Physician 07/13/16 Pedro Segura MD [facility] [address] [place] [address] Nephrology 10/03/16 Freddy Craft MD 516 [facility] [address] [place] [address] Assigned Gastroenterology Provider 02/08/20 Abdifatah Van MD 717 [facility] [address] [place] [address] Assigned Nephrology Provider 07/13/20 11/07/23 Nicole Carranza NP 420 [facility] [address] [place] [address] Assigned Heart and Vascular Provider 01/09/22 Andressa Ruiz PA-C 420 [facility] 803 [place], [place] [address] Physician Sr. Pricing Analyst Endocrinology, Diabetes, and Metabolism 03/01/22 Ashlyn Storm RN [facility] 711 [place] [address] Registered Nurse 03/03/22 09/15/22 Rubén Gunter [facility] [address] [place] [address] Assigned MTM Pharmacist 02/27/22 Andressa Ruiz PA-C [address] [address] Assigned Endocrinology Provider 03/13/22 09/07/23 Suzan Harry MD 420 [place], [place] [address] Nephrology 06/30/23 Yasmeen Powers MD 500 [place] [address] Nephrology 10/24/23 Yasmeen Powers MD 500 [place] [address] Assigned Nephrology Provider 11/08/23 documented as of this encounter
--- OUTSIDE RECORDS SUMMARY | 2024-01-26 22:32 | XMS_ITS | Encounter Summary ---
Author Organization [place] Address [address] [place] [address] Care Team Providers Care Cable Technician Name Role Phone Rubén Boyle MD Primary Care Provider Pamela Blanco SIZER HAND Unavailable Pedro Segura MD Unavailable Freddy Craft MD Unavailable Abdifatah Van MD Unavailable Nicole Carranza SIZER HAND Unavailable [phone] Andressa Ruiz-C Unavailable Ashlyn Storm RN Unavailable Rubén Gunter [facility] Unavailable Andressa Ruiz-C Unavailable [phone] Suzan Harry MD Unavailable [phone] Yasmeen Powers MD Unavailable Yasmeen Powers MD Unavailable [phone] Encounter Details Date Type Department Care Team (Latest Contact Info) Description 04/28/[address] [facility] Transplant Clinic [address] [place] [address] Long-term use of immunosuppressant medication; [...] TANDEM MASS SPECTROMETRY Routine 04/26/2017 8:55 AM FOLDER MACHINE Long-term use of immunosuppressant medication Liver replaced by transplant (H) documented in this encounter Results * Tacrolimus level (04/26/2017 8:55 AM FOLDER MACHINE) Tacrolimus(FK-5 06) (External) 9.2 ng/mL LABDE SCAN Tacrolimus Last Dose (External) 04/25/2017 at 2000 LABDE SCAN Blood specimen (specimen) 04/26/2017 8:55 AM FOLDER MACHINE Narrative SAMANTHA PFT - 04/28/2017 3:36 PM FOLDER MACHINE Verified by Rhiannon Cain on 04/28/2017. Aime [...] as of this encounter Care Teams Cable Technician Relationship Specialty Start Date End Date Rubén Boyle MD PCP - General Family Practice 03/08/16 Pamela Blanco NP [facility] [address] [place] [address] Referring Physician 07/13/16 Pedro Segura MD [facility] [address] [place] [address] Nephrology 10/03/16 Freddy Craft MD [facility] [place], [place] [address] Assigned Gastroenterology Provider 02/08/20 Abdifatah Van MD 7[address] [facility] [address] [place], [place] [address] Assigned Nephrology Provider 07/13/20 11/07/23 Nicole Carranza NP 420 [facility] MMC [address] [place], [place] [address] Assigned Heart and Vascular Provider 01/09/22 Andressa Ruiz PA-C 420 [facility] MMC 803 [place], [place] [address] Physician Hand Slitter Endocrinology, Diabetes, and Metabolism 03/01/22 Ashlyn Storm, RN [facility] 711 [place], [place] [address] Registered Nurse 03/03/22 09/15/22 Rubén Gunter [facility] 909 [facility] [address] [place], [place] [address] Assigned MTM Pharmacist 02/27/22 Andressa Ruiz PA-C 420 [facility] 803 [place] [address] Assigned Endocrinology Provider 03/13/22 09/07/23 Suzan Harry MD 420 [place] [address] Nephrology 06/30/23 Yasmeen Powers MD 500 [place] [address] Nephrology 10/24/23 Yasmeen Powers MD 500 [place] [address] Assigned Nephrology Provider 11/08/23 documented as of this encounter
--- OUTSIDE RECORDS SUMMARY | 2024-01-26 22:32 | XMS_ITS | Encounter Summary ---
Author Organization [place] Address [address] [place] [address] Care Team Providers Care Field Spec Name Role Phone Rubén Boyle MD Primary Care Provider [phone] Pamela Blanco PALLET RECTIFIER Unavailable Pedro Segura MD Unavailable Freddy Craft MD Unavailable [phone] Abdifatah Van MD Unavailable Nicole Carranza PALLET RECTIFIER Unavailable [phone] Andressa Ruiz-C Unavailable Ashlyn Storm RN Unavailable [phone] Rubén Gunter [facility] Unavailable Andressa Ruiz-C Unavailable [phone] Suzan Harry MD Unavailable [phone] Yasmeen Powers MD Unavailable [phone] Yasmeen Powers MD Unavailable [phone] Encounter Details Date Type Department Care Team (Latest Contact Info) Description 05/19/2017 External Order Results [facility] [address] [place] [address] Long-term use of immunosuppressant medication; [...] TANDEM MASS SPECTROMETRY Routine 05/16/2017 8:57 AM TRAFFIC I MANAGER Long-term use of immunosuppressant medication Liver replaced by transplant (H) PHOSPHORUS Routine 05/16/2017 8:57 AM TRAFFIC I MANAGER Long-term use of immunosuppressant medication Liver replaced by transplant (H) MAGNESIUM Routine 05/16/2017 8:57 AM TRAFFIC I MANAGER Long-term use of immunosuppressant medication Liver replaced by transplant (H) HEPATIC FUNCTION PANEL Routine 05/16/2017 8:57 AM TRAFFIC I MANAGER Long-term use of immunosuppressant medication Liver replaced by transplant (H) BASIC METABOLIC PANEL Routine 05/16/2017 8:57 AM TRAFFIC I MANAGER Long-term use of immunosuppressant medication Liver replaced by transplant (H) CBC WITH PLATELETS Routine 05/16/2017 8: 57 AM TRAFFIC I MANAGER Long-term use of immunosuppressant medication Liver replaced by transplant (H) documented in this encounter Results * Tacrolimus level (05/16/2017 8:57 AM TRAFFIC I MANAGER) Tacrolimus(FK-5 06) (External) 7.3 5 - 8 ng/mL LABDE SCAN Tacrolimus Last Dose (External) Not given LABDE SCAN Blood specimen (specimen) 05/16/2017 8:57 AM TRAFFIC I MANAGER Narrative SAMANTHA PFT - 05/19/2017 8:13 PM TRAFFIC I MANAGER Verified by Myrna Monreal on 05/19/2017. Varvara A Mirella MD LAB - BLOOD ORDERA BLES Performing Organization Address City/[facility]/ZIP Co de Phone Number [facility] PFT LABDE SCAN * Hepatic panel (05/16/2017 8:57 AM TRAFFIC I MANAGER) Albumin (External) 3.7 3.2 - 4.6 g/dL [...] SCAN Blood specimen (specimen) 05/16/2017 8:57 AM TRAFFIC I MANAGER Narrative [facility] PFT - 05/19/2017 4:56 AM TRAFFIC I MANAGER Verified by Rhiannon Cain on 05/19/2017. Aime Vu MD LAB - BLOOD ORDERA BLES Performing Organization Address [facility] Co de Phone Number [facility] LABDE SCAN * Magnesium (05/16/2017 8:57 AM TRAFFIC I MANAGER) Magnesium (External) 1.7 1.6 - 2.6 mg/dL LABDE SCAN Blood specimen (specimen) 05/16/2017 8:57 AM TRAFFIC I MANAGER Narrative [facility] PFT - 05/19/2017 4:56 AM TRAFFIC I MANAGER Verified by Rhiannon Cain on 05/19/2017. Aime Vu MD LAB - BLOOD ORDERA BLES Performing Organization Address City/[facility]/ZIP Co de Phone Number [facility] LABDE SCAN * Phosphorus (05/16/2017 8:57 AM TRAFFIC I MANAGER) Phosphorus (External) 3.4 2.3 - 4.7 mg/dL LABDE SCAN Blood specimen (specimen) 05/16/2017 8:57 AM TRAFFIC I MANAGER Narrative [facility] PFT - 05/19/2017 4:56 AM TRAFFIC I MANAGER Verified by Rhiannon Cain on 05/19/2017. Aime Vu MD LAB - BLOOD ORDERA BLES Performing Organization Address [facility] Co de Phone Number [facility] LABDE SCAN * (ABNORMAL) Basic metabolic panel (05/16/2017 8:57 AM TRAFFIC I MANAGER) Sodium (External) 140 135 - 145 mmol/L [...] SCAN Blood specimen (specimen) 05/16/2017 8:57 AM TRAFFIC I MANAGER Narrative [facility] PFT - 05/19/2017 4:56 AM TRAFFIC I MANAGER Verified by Rhiannon Cain on 05/19/2017. Aime Vu MD LAB - BLOOD ORDERA BLES Performing Organization Address [facility]/ZIP Co de Phone Number [facility] LABDE SCAN * (ABNORMAL) CBC with platelets (05/16/2017 8:57 AM TRAFFIC I MANAGER) WBC Count (External) 2.1(L) 4.5 - 110 [...] SCAN Blood specimen (specimen) 05/16/2017 8:57 AM TRAFFIC I MANAGER Narrative SAMANTHA PFT - 05/19/2017 4:56 AM TRAFFIC I MANAGER Verified by Rhiannon Cain on 05/19/2017. Aime [...] documented as of this encounter Care Teams Field Spec Relationship Specialty Start Date End Date Rubén Boyle MD PCP - General Family Practice 03/08/16 Pamela Blanco PALLET RECTIFIER [facility] [address] [place] [address] Referring Physician 07/13/16 Pedro Segura MD [facility] [address] [place] [address] Nephrology 10/03/16 Freddy Craft MD [facility] [place], [place] [address] Assigned Gastroenterology Provider 02/08/20 Abdifatah Van MD 717 [facility] [address] [place] [address] Assigned Nephrology Provider 07/13/20 11/07/23 Nicole Carranza NP 420 [facility] 508 [place], [place] [address] Assigned Heart and Vascular Provider 01/09/22 Andressa Ruiz PA-C 420 [facility] 803 [place] [address] Physician Patrol Mother Endocrinology, Diabetes, and Metabolism 03/01/22 Ashlyn Storm, RN [facility] 711 [place], [place] [address] Registered Nurse 03/03/22 09/15/22 Rubén Gunter [facility] [address] [place] [address] [place] [address] Assigned MTM Pharmacist 02/27/22 Andressa Ruiz PA-C 420 [facility] 803 [place] [address] Assigned Endocrinology Provider 03/13/22 09/07/23 Suzan Harry MD 420 [place] [address] Nephrology 06/30/23 Yasmeen Powers MD 500 [place] [address] Nephrology 10/24/23 Yasmeen Powers MD 500 [place] [address] Assigned Nephrology Provider 11/08/23 documented as of this encounter
--- OUTSIDE RECORDS SUMMARY | 2024-01-26 22:32 | XMS_ITS | Encounter Summary ---
Author Organization [place] Address [address] [place] [address] Care Team Providers Care Pellet Post Inspector Name Role Phone Rubén Boyle MD Primary Care Provider Pamela Blanco TRUCK RAILROAD AND BUS MOTOR MECHANIC Unavailable Pedro Segura MD Unavailable Freddy Craft MD Unavailable [phone] Abdifatah Van MD Unavailable Nicole Carranza TRUCK RAILROAD AND BUS MOTOR MECHANIC Unavailable [phone] Andressa Ruiz-C Unavailable Ashlyn Storm RN Unavailable [phone] Rubén Gunter [facility] Unavailable Andressa Ruiz-C Unavailable Suzan Harry MD Unavailable [phone] Yasmeen Powers MD Unavailable [phone] Yasmeen Powers MD Unavailable [phone] Encounter Details Date Type Department Care Team (Latest Contact Info) Description 04/22/2017 External Order Results [facility] Transplant Clinic [address] [place] [address] Long-term use of immunosuppressant medication; [...] MASS SPECTROMETRY Routine 04/19/2017 9:45 AM DIRECTOR OF MEDICAL SERVICES Long-term use of immunosuppressant medication Liver replaced by transplant (H) documented in this encounter Results * (ABNORMAL) Tacrolimus level (04/19/2017 9:45 AM DIRECTOR OF MEDICAL SERVICES) Tacrolimus(FK-5 06) (External) 4.7(L) 5 - 8 ng/mL LABDE SCAN Blood specimen (specimen) 04/19/2017 9:45 AM DIRECTOR OF MEDICAL SERVICES Narrative SAMANTHA PFT - 04/22/2017 1:14 PM DIRECTOR OF MEDICAL SERVICES Verified by Rhiannon Cain on 04/22/2017. Aime [...] documented as of this encounter Care Teams Pellet Post Inspector Relationship Specialty Start Date End Date Rubén Boyle MD PCP - General Family Practice 03/08/16 Pamela Blanco NP [facility] [address] [place] [address] Referring Physician 07/13/16 Pedro Segura MD [facility] [address] [place] [address] Nephrology 10/03/16 Freddy Craft MD 516 [facility] 2A [place], [place] [address] Assigned Gastroenterology Provider 02/08/20 Abdifatah Van MD 717 [facility] [address] [place] [address] Assigned Nephrology Provider 07/13/20 11/07/23 Nicole Carranza NP 420 [facility] 508 [place], [place] [address] Assigned Heart and Vascular Provider 01/09/22 Andressa Ruiz PA-C 420 [facility] 803 [place], [place] [address] Physician Inspector Aligning Endocrinology, Diabetes, and Metabolism 03/01/22 Ashlyn Storm, RN [facility] 711 [place] [address] Registered Nurse 03/03/22 09/15/22 Rubén Gunter [facility] 909 [place], [place] [address] Assigned MTM Pharmacist 02/27/22 Andressa Ruiz PA-C 420 [facility] 803 [place] [address] Assigned Endocrinology Provider 03/13/22 09/07/23 Suzan Harry MD 420 [place] [address] Nephrology 06/30/23 Yasmeen Powers MD 500 [place] [address] Nephrology 10/24/23 Yasmeen Powers MD 500 [place] [address] Assigned Nephrology Provider 11/08/23 documented as of this encounter
--- OUTSIDE RECORDS SUMMARY | 2024-01-26 22:32 | XMS_ITS | Encounter Summary ---
Author Organization [place] Address [address] [place] [address] Care Team Providers Care Student Advisor Name Role Phone Rubén Boyle MD Primary Care Provider [phone] Pamela Blanco BRICKLAYER'S ASSISTANT Unavailable [phone] Pedro Segura MD Unavailable Freddy Craft MD Unavailable [phone] Abdifatah Van MD Unavailable Nicole Carranza BRICKLAYER'S ASSISTANT Unavailable [phone] Andressa Ruiz-C Unavailable Ashlyn Storm RN Unavailable Rubén Gunter [facility] Unavailable Andressa Ruiz-C Unavailable Suzan Harry MD Unavailable [phone] Yasmeen Powers MD Unavailable [phone] Yasmeen Powers MD Unavailable [phone] Encounter Details Date Type Department Care Team (Latest Contact Info) Description 03/24/2017 External Order Results [facility] [address] [place] [address] Long-term use of immunosuppressant medication; [...] TANDEM MASS SPECTROMETRY Routine 03/21/2017 10:40 AM ORACLE ENGINEER Long-term use of immunosuppressant medication Liver replaced by transplant (H) documented in this encounter Results * (ABNORMAL) Tacrolimus level (03/21/2017 10:40 AM ORACLE ENGINEER) Tacrolimus(FK-5 06) (External) 21.3(H) 5 - 8 ng/mL LABDE SCAN Tacrolimus Last Dose (External) 03/20/2017 at 2000 LABDE SCAN Blood specimen (specimen) 03/21/2017 10:40 AM ORACLE ENGINEER Narrative SAMANTHA PFT - 03/24/2017 12:03 PM ORACLE ENGINEER Verified by Rhiannon Cain on 03/24/2017. Aime [...] documented as of this encounter Care Teams Student Advisor Relationship Specialty Start Date End Date Rubén Boyle MD PCP - General Family Practice 03/08/16 Pamela Blanco NP [facility] [address] [place] [address] Referring Physician 07/13/16 Pedro Segura MD [facility] [address] [place] [address] Nephrology 10/03/16 Freddy Craft MD [facility] [place], [place] [address] Assigned Gastroenterology Provider 02/08/20 Abdifatah Van MD 717 [facility] [address] [place], [place] [address] Assigned Nephrology Provider 07/13/20 11/07/23 Nicole Carranza, GERMANIA 420 [facility] [address] [place], [place] [address] Assigned Heart and Vascular Provider 01/09/22 Andressa Ruiz PA-C 420 [facility] 803 [place], [place] [address] Physician Salesperson Neckties Endocrinology, Diabetes, and Metabolism 03/01/22 Ashlyn Storm, RN [facility] 711 [place], [place] 204814 Registered Nurse 03/03/22 09/15/22 Rubén Gunter RPH 909 [place], [place] [address]265 Assigned MTM Pharmacist 02/27/22 Andressa Ruiz PA-C 420 [facility] [address] [place], [place] [address]95 Assigned Endocrinology Provider 03/13/22 09/07/23 Suzan Harry MD 420 [place], [place] 2[address] Nephrology 06/30/23 Yasmeen Powers MD 500 [place] [address] Nephrology 10/24/23 Yasmeen Powers MD 500 [place] [address] Assigned Nephrology Provider 11/08/23 documented as of this encounter
--- OUTSIDE RECORDS SUMMARY | 2024-01-26 22:33 | XMS_ITS | Encounter Summary ---
Author Organization [place] Address [address] [place] [address] Care Team Providers Care Bar Welder Name Role Phone Rubén Boyle MD Primary Care Provider Pamela Blanco PRESSURISED CONTAINER FILLER Unavailable Pedro Segura MD Unavailable Freddy Craft MD Unavailable [phone] Abdifatah Van MD Unavailable Nicole Carranza PRESSURISED CONTAINER FILLER Unavailable [phone] Andressa Ruiz-C Unavailable Ashlyn Storm RN Unavailable Rubén Gunter [facility] Unavailable Andressa Ruiz-C Unavailable Suzan Harry MD Unavailable [phone] Yasmeen Powers MD Unavailable Yasmeen Powers MD Unavailable [phone] Encounter Details Date Type Department Care Team (Late st Contact Info) Description 01/24/2017 External Order Results [facility] Trans[facility] [address] [place] [address] Social History Tobacco Use Types [...] documented as of this encounter Care Teams Bar Welder Relationship Specialty Start Date End Date Rubén Boyle MD PCP - General Family Practice 03/08/16 Pamela Blanco, PRESSURISED CONTAINER FILLER [facility] [address] [place] [address] Referring Physician 07/13/16 Pedro Segura MD [facility] [address] [place] [address] Nephrology 10/03/16 Freddy Craft MD 516 [facility] 2[facility] [place], [place] [address] Assigned Gastroenterology Provider 02/08/20 Abdifatah Van MD 717 [facility] [address] [place], [place] [address]244 Assigned Nephrology Provider 07/13/20 11/07/23 Nicole Carranza, GERMANIA 420 [facility] 508 [place], [place] [address] Assigned Heart and Vascular Provider 01/09/22 Andressa Ruiz PA-C 420 [facility] 803 [place], [place] [address] Physician Silk Conditioner Endocrinology, Diabetes, and Metabolism 03/01/22 Ashlyn Storm, RN [facility] 711 [place] [address] Registered Nurse 03/03/22 09/15/22 Rubén Gunter [facility] [address] [place] [address] Assigned MTM Pharmacist 02/27/22 Andressa Ruiz PA-C 420 [facility] 803 [place] [address] Assigned Endocrinology Provider 03/13/22 09/07/23 Suzan Harry MD 420 [place] [address] Nephrology 06/30/23 Yasmeen Powers MD 500 [place] [address] Nephrology 10/24/23 Yasmeen Powers MD 500 [place] [address] Assigned Nephrology Provider 11/08/23 documented as of this encounter
--- OUTSIDE RECORDS SUMMARY | 2024-01-26 22:33 | XMS_ITS | Encounter Summary ---
Author Organization [place] Address [address] [place] [address] Care Team Providers Care Gizzard Peeler Name Role Phone Rubén Boyle MD Primary Care Provider Pamela Blanco CHEMICAL OPERATOR Unavailable [phone] Pedro Segura MD Unavailable Freddy Craft MD Unavailable [phone] Abdifatah Van MD Unavailable Nicole Carranza CHEMICAL OPERATOR Unavailable [phone] Andressa Ruiz-C Unavailable Ashlyn Storm RN Unavailable [phone] Rubén Gunter [facility] Unavailable Andressa Ruiz-C Unavailable Suzan Harry MD Unavailable [phone] Yasmeen Powers MD Unavailable [phone] Yasmeen Powers MD Unavailable [phone] Encounter Details Date Type Department Care Team (Latest Contact Info) Description 03/09/2017 External Order Results [facility] Transplant Clinic [address] [place] [address] Long-term use of immunosuppressant medication; [...] Diagnosis Comments PHOSPHORUS Routine 03/07/2017 8:25 AM AMERICAN BOARD CERTIFIED ORTHOTIST Long-term use of immunosuppressant medication Liver replaced by transplant (H) MAGNESIUM Routine 03/07/2017 8:25 AM AMERICAN BOARD CERTIFIED ORTHOTIST Long-term use of immunosuppressant medication Liver replaced by transplant (H) HEPATIC FUNCTION PANEL Routine 03/07/2017 8:25 AM AMERICAN BOARD CERTIFIED ORTHOTIST Long-term use of immunosuppressant medication Liver replaced by transplant (H) BASIC METABOLIC PANEL Routine 03/07/2017 8:25 AM AMERICAN BOARD CERTIFIED ORTHOTIST Long-term use of immunosuppressant medication Liver replaced by transplant (H) CBC WITH PLATELETS Routine 03/07/2017 8: 25 AM AMERICAN BOARD CERTIFIED ORTHOTIST Long-term use of immunosuppressant medication Liver replaced by transplant (H) documented in this encounter Results * Hepatic panel (03/07/2017 8:25 AM AMERICAN BOARD CERTIFIED ORTHOTIST) Albumin (External) 3.9 3.2 - 4.6 g/dL [...] SCAN Blood specimen (specimen) 03/07/2017 8:25 AM AMERICAN BOARD CERTIFIED ORTHOTIST Narrative BREEZE PFT - 03/09/2017 11:44 AM AMERICAN BOARD CERTIFIED ORTHOTIST Verified by Rhiannon Cain on 03/09/2017. Aime Vu MD LAB - BLOOD ORDERA BLES Performing Organization Address [facility] Co de Phone Number BREEZE PFT LABDE SCAN * (ABNORMAL) Magnesium (03/07/2017 8:25 AM AMERICAN BOARD CERTIFIED ORTHOTIST) Magnesium (External) 1.3(L) 1.6 - 2.6 mg/dL LABDE SCAN Blood specimen (specimen) 03/07/2017 8:25 AM AMERICAN BOARD CERTIFIED ORTHOTIST Narrative BREEZE PFT - 03/09/2017 11:44 AM AMERICAN BOARD CERTIFIED ORTHOTIST Verified by Rhiannon Cain on 03/09/2017. Aime Vu MD LAB - BLOOD ORDERA BLEMarkel Performing Organization Address [facility] Co de Phone Number BREEZE PFT LABDE SCAN * Phosphorus (03/07/2017 8:25 AM AMERICAN BOARD CERTIFIED ORTHOTIST) Phosphorus (External) 3.5 2.3 - 4.7 mg/dL LABDE SCAN Blood specimen (specimen) 03/07/2017 8:25 AM AMERICAN BOARD CERTIFIED ORTHOTIST Narrative BREEZE PFT - 03/09/2017 11:44 AM AMERICAN BOARD CERTIFIED ORTHOTIST Verified by Rhiannon Cain on 03/09/2017. Aime Vu MD LAB - BLOOD ORDERA BLEMarkel Performing Organization Address [facility] Co de Phone Number BREEZE PFT LABDE SCAN * (ABNORMAL) Basic metabolic panel (03/07/2017 8:25 AM AMERICAN BOARD CERTIFIED ORTHOTIST) Sodium (External) 140 135 - 145 mmol/L [...] SCAN Blood specimen (specimen) 03/07/2017 8:25 AM AMERICAN BOARD CERTIFIED ORTHOTIST Narrative SAMANTHA PFT - 03/09/2017 11:44 AM AMERICAN BOARD CERTIFIED ORTHOTIST Verified by Rhiannon Cain on 03/09/2017. Aime Vu MD LAB - BLOOD ORDERA BLES SAMANTHA PFT LABDE SCAN * (ABNORMAL) CBC with platelets (03/07/2017 8:25 AM AMERICAN BOARD CERTIFIED ORTHOTIST) WBC Count (External) 4.9 4.5 - 11.0 [...] SCAN Blood specimen (specimen) 03/07/2017 8:25 AM AMERICAN BOARD CERTIFIED ORTHOTIST Narrative AMNAE PFT - 03/09/2017 11:44 AM AMERICAN BOARD CERTIFIED ORTHOTIST Verified by Rhiannon Cain on 03/09/2017. Aime [...] documented as of this encounter Care Teams Gizzard Peeler Relationship Specialty Start Date End Date Rubén Boyle MD PCP - General Family Practice 03/08/16 Pamela Blanco NP [facility] [address] [place], [place] [address] Referring Physician 07/13/16 Pedro Segura MD [facility] [address] [place], [place] [address] Nephrology 10/03/16 Freddy Craft MD [address] [facility] [address] [place], [place] [address] Assigned Gastroenterology Provider 02/08/20 Abdifatah Van MD [address] [facility] [address] [place] [address] Assigned Nephrology Provider 07/13/20 11/07/23 Nicole Carranza NP 420 [facility] [address] [place] [address] Assigned Heart and Vascular Provider 01/09/22 Andressa Ruiz PA-C [address] [address] Physician Loss Mitigation Specialist Endocrinology, Diabetes, and Metabolism 03/01/22 Ashlyn Storm, RN [facility] 711 [place] [address] Registered Nurse 03/03/22 09/15/22 Rubén Gunter [facility] [address] [place] [address] Assigned MTM Pharmacist 02/27/22 Andressa Ruiz PA-C [address] [address] Assigned Endocrinology Provider 03/13/22 09/07/23 Suzan Harry MD [address] [place] [address] Nephrology 06/30/23 Yasmeen Powers MD 500 [place] [address] Nephrology 10/24/23 Yasmeen Powers MD 500 [place] [address] Assigned Nephrology Provider 11/08/23 documented as of this encounter
--- OUTSIDE RECORDS SUMMARY | 2024-01-26 22:33 | XMS_ITS | Encounter Summary ---
Author Organization [place] Address [address] [place] [address] Care Team Providers Care Boiler Repairman Name Role Phone Rubén Boyle MD Primary Care Provider [phone] Pamela Blanco OPERATIONS RESEARCH SCIENTIST Unavailable Pedro Segura MD Unavailable Freddy Craft MD Unavailable [phone] Abdifatah Van MD Unavailable Nicole Carranza OPERATIONS RESEARCH SCIENTIST Unavailable [phone] Andressa Ruiz-C Unavailable Ashlyn Storm RN Unavailable Rubén Gunter [facility] Unavailable Andressa Ruiz-C Unavailable Suzan Harry MD Unavailable [phone] Yasmeen Powers MD Unavailable Yasmeen Powers MD Unavailable [phone] Encounter Details Date Type Department Care Team (Late st Contact Info) Description 03/23/2017 External Order Results [facility] Transplant Clinic [address] [place] [address] Social History Tobacco Use Types [...] Comments HEMOGLOBIN A1C Routine 03/21/2017 10:40 AM STRUCTURES TECHNICIAN documented in this encounter Results * Hemoglobin A1c (03/21/2017 10:40 AM STRUCTURES TECHNICIAN) Hemoglobin A1C (External) 5.2 <=6.4 % LABDE SCAN Blood specimen (specimen) 03/21/2017 10:40 AM STRUCTURES TECHNICIAN Narrative SAMANTHA PFT - 03/23/2017 11:52 AM STRUCTURES TECHNICIAN Verified by Rhiannon Cain on 03/23/2017. 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 [address] [place] [address] Referring Physician 07/13/16 Pedro Segura MD [facility] [address] [place] [address] Nephrology 10/03/16 Freddy Craft MD 516 [facility] [address] [place] [address] Assigned Gastroenterology Provider 02/08/20 Abdifatah Van MD 717 [facility] [address] [place] [address] Assigned Nephrology Provider 07/13/20 11/07/23 Nicole Carranza NP 420 [facility] 508 [place] [address] Assigned Heart and Vascular Provider 01/09/22 Andressa Ruiz PA-C 420 [facility] 803 [place] [address] Physician Studio Operations Manager Endocrinology, Diabetes, and Metabolism 03/01/22 Ashlyn Storm RN [facility] 711 [place] [address] Registered Nurse 03/03/22 09/15/22 Rubén Gunter [facility] [address] [place] [address] Assigned MTM Pharmacist 02/27/22 Andressa Ruiz PA-C [address] [address] Assigned Endocrinology Provider 03/13/22 09/07/23 Suzan Harry MD 420 [place] [address] Nephrology 06/30/23 Yasmeen Powers MD 500 [place], [place] [address] Nephrology 10/24/23 Yasmeen Powers MD 500 [place], [place] [address] Assigned Nephrology Provider 11/08/23 documented as of this encounter
--- OUTSIDE RECORDS SUMMARY | 2024-01-26 22:33 | XMS_ITS | Encounter Summary ---
Author Organization [place] Address [address] [place] [address] Care Team Providers Care University Tutor Name Role Phone Rubén Boyle MD Primary Care Provider Pamela Blanco MALE IMPERSONATOR Unavailable Pedro Segura MD Unavailable Freddy Craft MD Unavailable Abdifatah Van MD Unavailable Nicole Carranza MALE IMPERSONATOR Unavailable [phone] Andressa Ruiz-C Unavailable Ashlyn Storm RN Unavailable [phone] Rubén Gunter [facility] Unavailable Andressa Ruiz-C Unavailable [phone] Suzan Harry MD Unavailable [phone] Yasmeen Powers MD Unavailable [phone] Yasmeen Powers MD Unavailable [phone] Encounter Details Date Type Department Care Team (Latest Contact Info) Description 03/22/2017 External Order Results [facility] Transplant Clinic [address] [place] [address] Long-term use of immunosuppressant medication; [...] Diagnosis Comments PHOSPHORUS Routine 03/21/2017 10:40 AM SUPERVISOR CELLARS Long-term use of immunosuppressant medication Liver replaced by transplant (H) MAGNESIUM Routine 03/21/2017 10:40 AM SUPERVISOR CELLARS Long-term use of immunosuppressant medication Liver replaced by transplant (H) HEPATIC FUNCTION PANEL Routine 03/21/2017 10:40 AM SUPERVISOR CELLARS Long-term use of immunosuppressant medication Liver replaced by transplant (H) BASIC METABOLIC PANEL Routine 03/21/2017 10:40 AM SUPERVISOR CELLARS Long-term use of immunosuppressant medication Liver replaced by transplant (H) CBC WITH PLATELETS Routine 03/21/2017 10 :40 AM SUPERVISOR CELLARS Long-term use of immunosuppressant medication Liver replaced by transplant (H) documented in this encounter Results * (ABNORMAL) Hepatic panel (03/21/2017 10:40 AM SUPERVISOR CELLARS) Albumin (External) 4.1 3.2 - 4.6 g/dL [...] SCAN Blood specimen (specimen) 03/21/2017 10:40 AM SUPERVISOR CELLARS Narrative BREEZE PFT - 03/22/2017 10:51 AM SUPERVISOR CELLARS Verified by Rhiannon Cain on 03/22/2017. Aime Vu MD LAB - BLOOD ORDERA BLES Performing Organization Address [facility] de Phone Number BREEZE PFT LABDE SCAN * (ABNORMAL) Magnesium (03/21/2017 10:40 AM SUPERVISOR CELLARS) Magnesium (External) 1.4(L) 1.6 - 2.6 mg/dL LABDE SCAN Blood specimen (specimen) 03/21/2017 10:40 AM SUPERVISOR CELLARS Narrative BREEZE PFT - 03/22/2017 10:51 AM SUPERVISOR CELLARS Verified by Rhiannon Cain on 03/22/2017. Aime Vu MD LAB - BLOOD ORDERA BLES Performing Organization Address [facility] de Phone Number BREEZE PFT LABDE SCAN * Phosphorus (03/21/2017 10:40 AM SUPERVISOR CELLARS) Phosphorus (External) 2.9 2.3 - 4.7 mg/dL LABDE SCAN Blood specimen (specimen) 03/21/2017 10:40 AM SUPERVISOR CELLARS Narrative BREEZE PFT - 03/22/2017 10:51 AM SUPERVISOR CELLARS Verified by Rhiannon Cain on 03/22/2017. Aime Vu MD LAB - BLOOD ORDERA BLES Performing Organization Address [facility] de Phone Number BREEZE PFT LABDE SCAN * (ABNORMAL) Basic metabolic panel (03/21/2017 10:40 AM SUPERVISOR CELLARS) Sodium (External) 139 135 - 145 mmol/L [...] SCAN Blood specimen (specimen) 03/21/2017 10:40 AM SUPERVISOR CELLARS Narrative ERICKEZE PFT - 03/22/2017 10:51 AM SUPERVISOR CELLARS Verified by Rhiannon Cain on 03/22/2017. Aime Vu MD LAB - BLOOD ORDERA BLES BREEZE PFT LABDE SCAN * (ABNORMAL) CBC with platelets (03/21/2017 10:40 AM SUPERVISOR CELLARS) WBC Count (External) 2.7(L) 4.5 - 11.0 [...] SCAN Blood specimen (specimen) 03/21/2017 10:40 AM SUPERVISOR CELLARS Narrative BREEZE PFT - 03/22/2017 10:51 AM SUPERVISOR CELLARS Verified by Rhiannon Cain on 03/22/2017. Aime [...] documented as of this encounter Care Teams University Tutor Relationship Specialty Start Date End Date Rubén Boyle MD PCP - General Family Practice 03/08/16 Pamela Blanco MALE IMPERSONATOR [facility] [address] [place], [place] [address]707 Referring Physician 07/13/16 Pedro Segura MD [facility] [address] [place], [place] [address] Nephrology 10/03/16 Freddy Craft MD 516 [facility] 2[facility] [place] [address] Assigned Gastroenterology Provider 02/08/20 Abdifatah Van MD 7[address] [facility] [address] [place] [address] Assigned Nephrology Provider 07/13/20 11/07/23 Nicole Carranza NP 420 [facility] [place] [address] Assigned Heart and Vascular Provider 01/09/22 Andressa Ruiz PA-C 420 [facility] 803 [place] [address] Physician Airport Refueling Handler Endocrinology, Diabetes, and Metabolism 03/01/22 Ashlyn Storm RN [facility] 711 [place] [address] Registered Nurse 03/03/22 09/15/22 Rubén Gunter [facility] [address] [place] [address] Assigned MTM Pharmacist 02/27/22 Andressa Ruiz PA-C 420 [facility] 803 [place] [address] Assigned Endocrinology Provider 03/13/22 09/07/23 Suzan Harry MD [address] [place] [address] Nephrology 06/30/23 Yasmeen Powers MD 500 [place] [address] Nephrology 10/24/23 Yasmeen Powers MD 500 [place] [address] Assigned Nephrology Provider 11/08/23 documented as of this encounter
--- OUTSIDE RECORDS SUMMARY | 2024-01-26 22:33 | XMS_ITS | Encounter Summary ---
Author Organization [place] Address [address] [place] [address] Care Team Providers Care Extension Service Specialist In Charge Name Role Phone Rubén Boyle MD Primary Care Provider Pamela Blanco HI RANGER OPERATOR Unavailable Pedro Segura MD Unavailable [phone] Freddy Craft MD Unavailable Abdifatah Van MD Unavailable Nicole Carranza HI RANGER OPERATOR Unavailable [phone] Andressa Ruiz-C Unavailable Ashlyn Storm RN Unavailable [phone] Rubén Gunter [facility] Unavailable Andressa Ruiz-C Unavailable Suzan Harry MD Unavailable [phone] Yasmeen Powers MD Unavailable Yasmeen Powers MD Unavailable [phone] Encounter Details Date Type Department Care Team (Late st Contact Info) Description 11/23/2016 External Order Results [facility] Transplant Clinic [address] [place] [address] Social History Tobacco Use Types [...] documented as of this encounter Care Teams Extension Service Specialist In Charge Relationship Specialty Start Date End Date Rubén Boyle MD PCP - General Family Practice 03/08/16 Pamela Blanco NP [facility] [address] [place] [address] Referring Physician 07/13/16 Pedro Segura MD [facility] [address] [place] [address] Nephrology 10/03/16 Freddy Craft MD 516 [facility] 2[facility] [place], [place] [address] Assigned Gastroenterology Provider 02/08/20 Abdifatah Van MD 717 [facility] [address] [place] [address] Assigned Nephrology Provider 07/13/20 11/07/23 Nicole Carranza NP 420 [facility] 508 [place], [place] [address] Assigned Heart and Vascular Provider 01/09/22 Andressa Ruiz PA-C 420 [facility] 803 [place], [place] [address] Physician Web Marketing Assistant Endocrinology, Diabetes, and Metabolism 03/01/22 Ashlyn Storm, RN [facility] 711 [facility] [place], [place] [address] Registered Nurse 03/03/22 09/15/22 Rubén Gunter [facility] 909 [place] [address] Assigned MTM Pharmacist 02/27/22 Andressa Ruiz PA-C 420 [facility] 803 [place], [place] [address] Assigned Endocrinology Provider 03/13/22 09/07/23 Suzan Harry MD 420 [place], [place] [address] Nephrology 06/30/23 Yasmeen Powers MD 500 [place], [place] [address] Nephrology 10/24/23 Yasmeen Powers MD 500 [place] [address] Assigned Nephrology Provider 11/08/23 documented as of this encounter
--- OUTSIDE RECORDS SUMMARY | 2024-01-26 22:33 | XMS_ITS | Encounter Summary ---
Author Organization [facility] Address [address] [place] [address] Care Team Providers Care Furnace Packer Name Role Phone Rubén Boyle MD Primary Care Provider [phone] Pamela Blanco MATERIAL SCHEDULER Unavailable Pedro Segura MD Unavailable [phone] Freddy Craft MD Unavailable [phone] Abdifatah Van MD Unavailable Nicole Carranza MATERIAL SCHEDULER Unavailable [phone] Andressa Ruiz-C Unavailable Ashlyn Storm RN Unavailable [phone] Rubén Gunter [facility] Unavailable Andressa Ruiz-C Unavailable Suzan Harry MD Unavailable [phone] Yasmeen Powers MD Unavailable Yasmeen Powers MD Unavailable [phone] Encounter Details Date Type Department Care Team (Late st Contact Info) Description 02/08/[address] [facility] [address] [place] [address] Social History Tobacco Use Types [...] LABDE SCAN 02/08/2017 7:25 AM CDT Narrative SAMNATHA PFT - 02/09/2017 1:46 PM CDT Verified by Cruzito Marlow on 02/08/2017. Verified by Cruzito Marlow on 02/09/2017. 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, 07/10/16 rectal swab 06/21/2016 06/21/2016 documented as of this encounter Care Teams Furnace Packer Relationship Specialty Start Date End Date Rubén Boyle MD PCP - General Family Practice 03/08/16 Pamela Blanco MATERIAL SCHEDULER [facility] [address] [place] [address] Referring Physician 07/13/16 Pedro Segura MD [facility] [address] [place] [address] Nephrology 10/03/16 Freddy Craft MD [facility] [place], [place] 981085 Assigned Gastroenterology Provider 02/08/20 Abdifatah Van MD 717 [facility] [address] [place], [place] 087724 Assigned Nephrology Provider 07/13/20 11/07/23 Nicole Carranza NP 420 [facility] 508 [place], [place] 305015 Assigned Heart and Vascular Provider 01/09/22 Andressa Ruiz PA-C 420 [facility] 803 [place], [place] 409745 Physician Cipher Expert Endocrinology, Diabetes, and Metabolism 03/01/22 Ashlyn Storm, RN [facility] 711 [place], [place] [address] Registered Nurse 03/03/22 09/15/22 Rubén Gunter [facility] 909 [place], [place] 871264[address] Assigned MTM Pharmacist 02/27/22 Andressa Ruiz PA-C 420 [facility] 803 [place] [address] Assigned Endocrinology Provider 03/13/22 09/07/23 Suzan Harry MD 420 [place], [place] 217545 Nephrology 06/30/23 Yasmeen Powers MD 500 [place], [place] 218495 Nephrology 10/24/23 Yasmeen Powers MD 500 [place], [place] 752595 Assigned Nephrology Provider 11/08/23 documented as of this encounter
--- OUTSIDE RECORDS SUMMARY | 2024-01-26 22:33 | XMS_ITS | Encounter Summary ---
Author Organization [facility] Address [address] [place] [address] Care Team Providers Care Embedded Firmware Engineer Name Role Phone Rubén Boyle MD Primary Care Provider Pamela Blanco HEALTH PROGRAM SPECIALIST Unavailable Pedro Segura MD Unavailable Freddy Craft MD Unavailable [phone] Abdifatah Van MD Unavailable Nicole Carranza HEALTH PROGRAM SPECIALIST Unavailable Andressa Ruiz-C Unavailable Ashlyn Storm RN Unavailable Rubén Gunter [facility] Unavailable Andressa Ruiz-C Unavailable [phone] Suzan Harry MD Unavailable [phone] Yasmeen Powers MD Unavailable Yasmeen Powers MD Unavailable [phone] Encounter Details Date Type Department Care Team (Late st Contact Info) Description 01/12/2017 External Order Results [facility] 9[address] [place] [address] Social History Tobacco Use Types [...] documented as of this encounter Care Teams Embedded Firmware Engineer Relationship Specialty Start Date End Date Rubén Boyle MD PCP - General Family Practice 03/08/16 Pamela Blanco NP [facility] [address] [place] [address] Referring Physician 07/13/16 Pedro Segura MD [facility] [address] [place] [address] Nephrology 10/03/16 Freddy Craft MD 516 [facility] [place], [place] 10633455 Assigned Gastroenterology Provider 02/08/20 Abdifatah Van MD 717 [facility] [address] [place] [address] Assigned Nephrology Provider 07/13/20 11/07/23 Nicole Carranza NP 420 [facility] 508 [place], [place] 809705 Assigned Heart and Vascular Provider 01/09/22 Andressa Ruiz PA-C 420 [facility] 803 [place], [place] 451835 Physician Hearing Aid Assembly Supervisor Endocrinology, Diabetes, and Metabolism 03/01/22 Ashlyn Storm, RN [facility] 711 [facility] [place], [place] 388794 Registered Nurse 03/03/22 09/15/22 Rubén Gunter [facility] 909 [place] [address] Assigned MTM Pharmacist 02/27/22 Andressa Ruiz PA-C 420 [facility] 803 [place], [place] 345385 Assigned Endocrinology Provider 03/13/22 09/07/23 Suzan Harry MD 420 [place], [place] 679285 Nephrology 06/30/23 Yasmeen Powers MD 500 [place], [place] 763165 Nephrology 10/24/23 Yasmeen Powers MD 500 [place] [address] Assigned Nephrology Provider 11/08/23 documented as of this encounter
--- OUTSIDE RECORDS SUMMARY | 2024-01-26 22:33 | XMS_ITS | Encounter Summary ---
Author Organization [facility] Address [address] [place] [address] Care Team Providers Care Paranormal Investigator Name Role Phone Rubén Boyle MD Primary Care Provider Pamela Blanco AUTO TRANSMISSION TECHNICIAN Unavailable [phone] Pedro Segura MD Unavailable Freddy Craft MD Unavailable [phone] Abdifatah Van MD Unavailable Nicole Carranza AUTO TRANSMISSION TECHNICIAN Unavailable [phone] Andressa Ruiz-C Unavailable Ashlyn Storm RN Unavailable Rubén Gunter [facility] Unavailable Andressa Ruiz-C Unavailable Suzan Harry MD Unavailable [phone] Yasmeen Powers MD Unavailable [phone] Yasmeen Powers MD Unavailable [phone] Encounter Details Date Type Department Care Team (Latest Contact Info) Description 03/13/2017 External Order Results [facility] Trans[facility] 909 [place] [address] Long-term use of immunosuppressant medication; [...] TANDEM MASS SPECTROMETRY Routine 03/07/2017 8:25 AM HANDER IN Long-term use of immunosuppressant medication Liver replaced by transplant (H) documented in this encounter Results * Tacrolimus level (03/07/2017 8:25 AM HANDER IN) Tacrolimus(FK-5 06) (External) 11.9 ng/mL LABDE SCAN Tacrolimus Last Dose (External) not given LABDE SCAN Blood specimen (specimen) 03/07/2017 8:25 AM HANDER IN Narrative SAMANTHA PFT - 03/13/2017 9:11 AM HANDER IN Verified by Myrna Monreal on 03/13/2017. Aime [...] - General Family Practice 03/08/16 Pamela Blanco AUTO TRANSMISSION TECHNICIAN [facility] [address] [place] [address] Referring Physician 07/13/16 Pedro Segura MD [facility] [address] [place] [address] Nephrology 10/03/16 Freddy Craft MD 516 [facility] [address] [place], [place] 040355 Assigned Gastroenterology Provider 02/08/20 Abdifatah Van MD 717 [facility] [address] [place] [address] Assigned Nephrology Provider 07/13/20 11/07/23 Nicole Carranza NP 420 [facility] 508 [place], [place] 464885 Assigned Heart and Vascular Provider 01/09/22 Andressa Ruiz PA-C 420 [facility] 803 [place], [place] 697145 Physician Outdoor Pursuits Instructor Endocrinology, Diabetes, and Metabolism 03/01/22 Ashlyn Storm, RN [facility] 711 [place] [address] Registered Nurse 03/03/22 09/15/22 Rubén Gunter [facility] 909 [facility] [address] [place], [place] 816595 Assigned MTM Pharmacist 02/27/22 Andressa Ruiz PA-C 420 [facility] 803 [place] [address] Assigned Endocrinology Provider 03/13/22 09/07/23 Suzan Harry MD 420 [place] [address] Nephrology 06/30/23 Yasmeen Powers MD 500 [place] [address] Nephrology 10/24/23 Yasmene Powers MD 500 [place] [address] Assigned Nephrology Provider 11/08/23 documented as of this encounter
--- OUTSIDE RECORDS SUMMARY | 2024-01-26 22:33 | XMS_ITS | Encounter Summary ---
Author Organization [facility] Address [address] [place] [address] Care Team Providers Care Regulatory Submissions Associate Name Role Phone Rubén Boyle MD Primary Care Provider [phone] Pamela Blanco BOAT RIGGER Unavailable Pedro Segura MD Unavailable [phone] Freddy Craft MD Unavailable Abdifatah Van MD Unavailable Nicole Carranza BOAT RIGGER Unavailable Andressa Ruiz-C Unavailable Ashlyn Storm RN Unavailable Rubén Gunter [facility] Unavailable Andressa Ruiz-C Unavailable Suzan Harry MD Unavailable [phone] Yasmeen Powers MD Unavailable Yasmeen Powers MD Unavailable [phone] Encounter Details Date Type Department Care Team (Late st Contact Info) Description 11/17/2016 External Order Results [facility] Trans[facility] 909 [place] [address] Social History Tobacco Use Types [...] documented as of this encounter Care Teams Regulatory Submissions Associate Relationship Specialty Start Date End Date Rubén Boyle MD PCP - General Family Practice 03/08/16 Pamela Blanco NP [facility] [address] [place] [address] Referring Physician 07/13/16 Pedro Segura MD [facility] [address] [place] [address] Nephrology 10/03/16 Freddy Craft MD 516 [facility] 2A [place] [address] Assigned Gastroenterology Provider 02/08/20 Abdifatah Van MD 717 [facility] [address] [place] [address] Assigned Nephrology Provider 07/13/20 11/07/23 Nicole Carranza NP 420 [facility] 508 [place], [place] 625985 Assigned Heart and Vascular Provider 01/09/22 Andressa Ruiz PA-C 420 [facility] 803 [place], [place] 966775 Physician Clinic Business Manager Endocrinology, Diabetes, and Metabolism 03/01/22 Ashlyn Storm RN [facility] 711 [place] [address] Registered Nurse 03/03/22 09/15/22 Rubén Gunter [facility] 909 [facility] [place] [address] Assigned MTM Pharmacist 02/27/22 Andressa Ruiz PA-C 420 [facility] 803 [place] [address] Assigned Endocrinology Provider 03/13/22 09/07/23 Suzan Harry MD [address] [place] [address] Nephrology 06/30/23 Yasmeen Powers MD 500 [place] [address] Nephrology 10/24/23 Yasmeen Powers MD 500 [place] [address] Assigned Nephrology Provider 11/08/23 documented as of this encounter
--- OUTSIDE RECORDS SUMMARY | 2024-01-26 22:33 | XMS_ITS | Encounter Summary ---
Author Organization [facility] Address [address] [place] [address] Care Team Providers Care Manifest/Order Organizer Print Orders Name Role Phone Rubén Boyle MD Primary Care Provider Pamela Blanco SECOND RIDE FARE COLLECTOR Unavailable Pedro Segura MD Unavailable [phone] Freddy Craft MD Unavailable [phone] Abdifatah Van MD Unavailable Nicole Carranza SECOND RIDE FARE COLLECTOR Unavailable Andressa Ruiz-C Unavailable Ashlyn Storm RN Unavailable [phone] Rubén Gunter [facility] Unavailable Andressa Ruiz-C Unavailable Suzan Harry MD Unavailable [phone] Yasmeen Powers MD Unavailable [phone] Yasmeen Powers MD Unavailable [phone] Encounter Details Date Type Department Care Team (Late st Contact Info) Description 01/17/2017 External Order Results [facility] Transplant [facility] 909 [place] [address] Social History Tobacco Use Types [...] documented as of this encounter Care Teams Manifest/Order Organizer Print Orders Relationship Specialty Start Date End Date Rubén Boyle MD PCP - General Family Practice 03/08/16 Pamela Blanco SECOND RIDE FARE COLLECTOR [facility] [address] [place] [address] Referring Physician 07/13/16 Pedro Segura MD [facility] [address] [place] [address] Nephrology 10/03/16 Freddy Craft MD 516 [facility] 2A [place], [place] 862735 Assigned Gastroenterology Provider 02/08/20 Abdifatah Van MD 717 [facility] [address] [place], [place] 845904 Assigned Nephrology Provider 07/13/20 11/07/23 Nicole Carranza NP 420 [facility] 508 [place], [place] 902685 Assigned Heart and Vascular Provider 01/09/22 Andressa Ruiz PA-C 420 [facility] 803 [place], [place] 673385 Physician Eligibility Analyst Endocrinology, Diabetes, and Metabolism 03/01/22 Ashlyn Storm, RN [facility] 711 [place], [place] 2595[address] Registered Nurse 03/03/22 09/15/22 Rubén Gunter [facility] 909 [place], [place] 80452455 Assigned MTM Pharmacist 02/27/22 Andressa Ruiz PA-C 420 [facility] 803 [place], [place] 818885 Assigned Endocrinology Provider 03/13/22 09/07/23 Suzan Harry MD [address] [place] [address] 455635 Nephrology 06/30/23 Yasmeen Powers MD 500 [place], [place] 283695 Nephrology 10/24/23 Yasmeen Powers MD 500 [place], [place] 965505 Assigned Nephrology Provider 11/08/23 documented as of this encounter
--- OUTSIDE RECORDS SUMMARY | 2024-01-26 22:33 | XMS_ITS | Encounter Summary ---
Author Organization [facility] Address [address] [place] [address] Care Team Providers Care Railroad Car Truck Builder Name Role Phone Rubén Boyle MD Primary Care Provider Pamela Blanco RESIDENT DOCTOR Unavailable Pedro Segura MD Unavailable [phone] Freddy Craft MD Unavailable Abdifatah Van MD Unavailable Nicole Carranza RESIDENT DOCTOR Unavailable Andressa Ruiz-C Unavailable Ashlyn Storm RN Unavailable Rubén Gunter [facility] Unavailable Andressa Ruiz-C Unavailable Suzan Harry MD Unavailable [phone] Yasmeen Powers MD Unavailable Yasmeen Powers MD Unavailable [phone] Encounter Details Date Type Department Care Team (Late st Contact Info) Description 01/10/2017 External Order Results [facility] Transplant [facility] 909 [place] [address] Social History Tobacco Use Types [...] documented as of this encounter Care Teams Railroad Car Truck Builder Relationship Specialty Start Date End Date Rubén Boyle MD PCP - General Family Practice 03/08/16 Pamela Blanco RESIDENT DOCTOR [facility] [address] [place] [address] Referring Physician 07/13/16 Pedro Segura MD [facility] [address] [place] [address] Nephrology 10/03/16 Freddy Craft MD [address] [facility] 2A [place], [place] 041495 Assigned Gastroenterology Provider 02/08/20 Abdifatah Van MD 717 [facility] [address] 353 [place], [place] 66491414 Assigned Nephrology Provider 07/13/20 11/07/23 Nicole Carranza, GERMANIA 420 [facility] 508 [place], [place] 592265 Assigned Heart and Vascular Provider 01/09/22 Andressa Ruiz PA-C 420 [facility] 803 [place], [place] 99067455 Physician Primer Expeditor And Drier Endocrinology, Diabetes, and Metabolism 03/01/22 Ashlyn Storm, RN [facility] 711 [place], [place] [address]1934 Registered Nurse 03/03/22 09/15/22 Rubén Gunter [facility] 909 [facility] SE [place], [place] 226755 Assigned MTM Pharmacist 02/27/22 Andressa Ruiz PA-C 420 [facility] 803 [place] [address] Assigned Endocrinology Provider 03/13/22 09/07/23 Suzan Harry MD 420 [place] [address] Nephrology 06/30/23 Yasmeen Powers MD 500 [place] [address] Nephrology 10/24/23 Yasmeen Powers MD 500 [place] [address] Assigned Nephrology Provider 11/08/23 documented as of this encounter
--- OUTSIDE RECORDS SUMMARY | 2024-01-26 22:33 | XMS_ITS | Encounter Summary ---
Author Organization [facility] Address [address] [place] [address] Care Team Providers Care Distribution Accounting Clerk Name Role Phone Rubén Boyle MD Primary Care Provider Pamela Blanco SCHOOL BASED THERAPIST Unavailable Pedro Segura MD Unavailable Freddy Craft MD Unavailable Abdifatah Van MD Unavailable Nicole Carranza SCHOOL BASED THERAPIST Unavailable Andressa Ruiz-C Unavailable Ashlyn Storm RN Unavailable Rubén Gunter [facility] Unavailable Andressa Ruiz-C Unavailable Suzan Harry MD Unavailable [phone] Yasmeen Powers MD Unavailable Yasmeen Powers MD Unavailable [phone] Encounter Details Date Type Department Care Team (Late st Contact Info) Description 01/10/2017 External Order Results [facility] 909 [place] [address] Social History Tobacco Use Types [...] documented as of this encounter Care Teams Distribution Accounting Clerk Relationship Specialty Start Date End Date Rubén Boyle MD PCP - General Family Practice 03/08/16 Pamela Blanco SCHOOL BASED THERAPIST [facility] [address] [place] [address] Referring Physician 07/13/16 Pedro Segura MD [facility] [address] [place] [address] Nephrology 10/03/16 Freddy Craft MD 516 [facility] 2A [place], [place] 854755 Assigned Gastroenterology Provider 02/08/20 Abdifatah Van MD 717 [facility] [address] 353 [place], [place] 941854 Assigned Nephrology Provider 07/13/20 11/07/23 Nicole Carranza NP 420 [facility] 508 [place], [place] 611675 Assigned Heart and Vascular Provider 01/09/22 Andressa Ruiz PA-C 420 [facility] 803 [place], [place] 451805 Physician Occupational Therapist Aide Endocrinology, Diabetes, and Metabolism 03/01/22 Ashlyn Storm RN [facility] 711 [place] [address] Registered Nurse 03/03/22 09/15/22 Rubén Gunter [facility] [address] [place] [address] Assigned MTM Pharmacist 02/27/22 Andressa Ruiz PA-C 420 [facility] 803 [place] [address] Assigned Endocrinology Provider 03/13/22 09/07/23 Suzan aHrry MD 420 [place] [address] Nephrology 06/30/23 Yasmeen Powers MD 500 [place] [address] Nephrology 10/24/23 Yasmeen Powers MD 500 [place] [address] Assigned Nephrology Provider 11/08/23 documented as of this encounter
--- OUTSIDE RECORDS SUMMARY | 2024-01-26 22:33 | XMS_ITS | Encounter Summary ---
Author Organization [facility] Address [address] [place] [address] Care Team Providers Care Supervisor Word Processing Name Role Phone Rubén Boyle MD Primary Care Provider Pamela Blanco DUST OPERATOR Unavailable Pedro Segura MD Unavailable [phone] Freddy Craft MD Unavailable Abdifatah Van MD Unavailable Nicole Carranza DUST OPERATOR Unavailable Andressa Ruiz-C Unavailable Ashlyn Storm RN Unavailable Rubén Gunter [facility] Unavailable Andressa Ruiz-C Unavailable Suzan Harry MD Unavailable [phone] Yasmeen Powers MD Unavailable Yasmeen Powers MD Unavailable [phone] Encounter Details Date Type Department Care Team (Late st Contact Info) Description 01/26/2017 External Order Results [facility] Trans[facility] Clinic 909 [place] [address] Social History Tobacco Use Types [...] as of this encounter Care Teams Supervisor Word Processing Relationship Specialty Start Date End Date Rubén Boyle MD PCP - General Family Practice 03/08/16 Pamela Blanco NP [facility] [address] [place], [place] 670637 Referring Physician 07/13/16 Pedro Segura MD [facility] [address] [place], [place] 082887 Nephrology 10/03/16 Freddy Craft MD 516 [facility] 2A [place], [place] 745535 Assigned Gastroenterology Provider 02/08/20 Abdifatah Van MD 717 [facility] [address] 353 [place], [place] 158914 Assigned Nephrology Provider 07/13/20 11/07/23 Nicole Carranza, GERMANIA 420 [facility] 508 [place], [place] 355545 Assigned Heart and Vascular Provider 01/09/22 Andressa Ruiz PA-C 420 [facility] 803 [place], [place] 791455 Physician Pellet Press Operator Endocrinology, Diabetes, and Metabolism 03/01/22 Ashlyn Storm RN [facility] 711 [place] [address] Registered Nurse 03/03/22 09/15/22 Rubén Gunter [facility] 909 [facility] [address] [place], [place] 166025 Assigned MTM Pharmacist 02/27/22 Andressa Ruiz PA-C 420 [facility] 803 [place], [place] 978615 Assigned Endocrinology Provider 03/13/22 09/07/23 Suzan Harry MD 420 [place] [address] Nephrology 06/30/23 Yasmeen Powers MD 500 [place] [address] Nephrology 10/24/23 Yasmeen Powers MD 500 [place] [address] Assigned Nephrology Provider 11/08/23 documented as of this encounter
--- OUTSIDE RECORDS SUMMARY | 2024-01-26 22:33 | XMS_ITS | Encounter Summary ---
Author Organization [facility] Address [address] [place] [address] Care Team Providers Care Groundman Name Role Phone Rubén Boyle MD Primary Care Provider Pamela Blanco TOBACCO STEMMER Unavailable Pedro Segura MD Unavailable Freddy Craft MD Unavailable Abdifatah Van MD Unavailable Nicole Carranza TOBACCO STEMMER Unavailable [phone] Andressa Ruiz-C Unavailable Ashlyn Storm RN Unavailable Rubén Gunter [facility] Unavailable Andressa Ruiz-C Unavailable [phone] Suzan Harry MD Unavailable [phone] Yasmeen Powers MD Unavailable Yasmeen Powers MD Unavailable [phone] Encounter Details Date Type Department Care Team (Late st Contact Info) Description 01/20/2017 External Order Results [facility] Trans[facility] 909 [place] [address] Social History Tobacco Use Types [...] documented as of this encounter Care Teams Groundman Relationship Specialty Start Date End Date Rubén Boyel MD PCP - General Family Practice 03/08/16 Pamela Blanco NP [facility] [address] [place] [address] Referring Physician 07/13/16 Pedro Segura MD [facility] [address] [place] [address] Nephrology 10/03/16 Freddy Craft MD 516 [facility] [place] [address] Assigned Gastroenterology Provider 02/08/20 Abdifatah Van MD 717 [facility] [address] [place] [address] Assigned Nephrology Provider 07/13/20 11/07/23 Nicole Carranza NP 420 [facility] 508 [place] [address] Assigned Heart and Vascular Provider 01/09/22 Andressa Ruiz PA-C 420 [facility] 803 [place] [address] Physician Dressage Instructor Endocrinology, Diabetes, and Metabolism 03/01/22 Ashlyn Storm, RN [facility] 711 [place] [address] Registered Nurse 03/03/22 09/15/22 Rubén Gunter [facility] [address] [place] [address] Assigned MTM Pharmacist 02/27/22 Andressa Ruiz PA-C 420 [facility] 803 [place] [address] Assigned Endocrinology Provider 03/13/22 09/07/23 Suzan Harry MD 420 [place] [address] Nephrology 06/30/23 Yasmeen Powers MD 500 [place] [address] Nephrology 10/24/23 Yasmeen Powers MD 500 [place] [address] Assigned Nephrology Provider 11/08/23 documented as of this encounter
--- OUTSIDE RECORDS SUMMARY | 2024-01-26 22:33 | XMS_ITS | Encounter Summary ---
Author Organization [facility] Address [address] [place] [address] Care Team Providers Care Construction Supervisor Name Role Phone Rubén Boyle MD Primary Care Provider Pamela Blanco CARBURETOR SPECIALIST Unavailable Pedro Segura MD Unavailable Freddy Craft MD Unavailable [phone] Abdifatah Van MD Unavailable Nicole Carranza CARBURETOR SPECIALIST Unavailable Andressa Ruiz-C Unavailable Ashlyn Storm RN Unavailable Rubén Gunter [facility] Unavailable Andressa Ruiz-C Unavailable [phone] Suzan Harry MD Unavailable [phone] Yasmeen Powers MD Unavailable Yasmeen Powers MD Unavailable [phone] Encounter Details Date Type Department Care Team (Late st Contact Info) Description 12/30/2016 External Order Results [facility] 909 [place] [address] Social History Tobacco Use Types [...] documented as of this encounter Care Teams Construction Supervisor Relationship Specialty Start Date End Date Rubén Boyle MD PCP - General Family Practice 03/08/16 Pamela Blanco CARBURETOR SPECIALIST [facility] [address] [place] [address] Referring Physician 07/13/16 Pedro Segura MD [facility] [address] [place], [place] 849607 Nephrology 10/03/16 Freddy Craft MD 516 [facility] [place], [place] 264875 Assigned Gastroenterology Provider 02/08/20 Abdifatah Van MD 717 [facility] [address] [place] [address] Assigned Nephrology Provider 07/13/20 11/07/23 Nicole Carranza NP 420 [facility] 508 [place], [place] 167465 Assigned Heart and Vascular Provider 01/09/22 Andressa Ruiz PA-C 420 [facility] 803 [place], [place] 790825 Physician Jumpbasting Collar Baster Endocrinology, Diabetes, and Metabolism 03/01/22 Ashlyn Storm, RN [facility] 711 [facility] [place], [place] 8[address]884 Registered Nurse 03/03/22 09/15/22 Rubén Gunter [facility] 574 [place] [address] Assigned MTM Pharmacist 02/27/22 Andressa Ruiz PA-C 420 [facility] 803 [place] [address] Assigned Endocrinology Provider 03/13/22 09/07/23 Suzan Harry MD 420 [place] [address] Nephrology 06/30/23 Yasmeen Powers MD 500 [place] [address] Nephrology 10/24/23 Yasmeen Powers MD 500 [place] [address] Assigned Nephrology Provider 11/08/23 documented as of this encounter
--- OUTSIDE RECORDS SUMMARY | 2024-01-26 22:33 | XMS_ITS | Encounter Summary ---
Author Organization [facility] Address [address] [place] [address] Care Team Providers Care Concrete Buildings Assembler Name Role Phone Rubén Boyle MD Primary Care Provider Pamela Blanco PERSONNEL OFFICER Unavailable [phone] Pedro Segura MD Unavailable [phone] Freddy Craft MD Unavailable [phone] Abdifatah Van MD Unavailable Nicole Carranza PERSONNEL OFFICER Unavailable [phone] Andressa Ruiz-C Unavailable Ashlyn Storm RN Unavailable [phone] Rubén Gunter [facility] Unavailable Andressa Ruiz-C Unavailable Suzan Harry MD Unavailable [phone] Yasmeen Powers MD Unavailable Yasmeen Powers MD Unavailable [phone] Encounter Details Date Type Department Care Team (Late st Contact Info) Description 12/22/2016 External Order Results [facility] 909 [place] [address] Social History Tobacco Use Types [...] documented as of this encounter Care Teams Concrete Buildings Assembler Relationship Specialty Start Date End Date Rubén Boyle MD PCP - General Family Practice 03/08/16 Pamela Blanco PERSONNEL OFFICER [facility] [address] [place] [address] Referring Physician 07/13/[address] [facility] [address] [place] [address] Nephrology 10/03/16 Freddy Craft MD 516 [facility] 2A [place], [place] [address]215 Assigned Gastroenterology Provider 02/08/20 Abdifatah Van MD 717 [facility] [address]ICK [address] [place], [place] [address] Assigned Nephrology Provider 07/13/20 11/07/23 Nicole Carranza NP 420 [facility] 508 [place], [place] [address] Assigned Heart and Vascular Provider 01/09/22 Andressa Ruiz PA-C 420 [facility] 803 [place] [address] Physician Fundraising Director Endocrinology, Diabetes, and Metabolism 03/01/22 Ashlyn Storm, RN [facility] 711 [place] [address] Registered Nurse 03/03/22 09/15/22 Rubén Gunter [facility] [address] [place] [address] Assigned MTM Pharmacist 02/27/22 Andressa Ruiz PA-C 420 [facility] 803 [place] [address] Assigned Endocrinology Provider 03/13/22 09/07/23 Suzan Harry MD 420 [place] [address] Nephrology 06/30/23 Yasmeen Powers MD 500 [place], [place] 358655 Nephrology 10/24/23 Yasmeen Powers MD 500 [place], [place] 752205 Assigned Nephrology Provider 11/08/23 documented as of this encounter
--- OUTSIDE RECORDS SUMMARY | 2024-01-26 22:33 | XMS_ITS | Encounter Summary ---
Author Organization [facility] Address [address] [place] [address] 31607 Care Team Providers Care Under Water Assistant Name Role Phone Rubén Boyle MD Primary Care Provider [phone] Pamela Blanco LGSW Unavailable Pedro Segura MD Unavailable [phone] Freddy Craft MD Unavailable Abdifatah Van MD Unavailable Nicole Carranza LGSW Unavailable Andressa Ruiz-C Unavailable Ashlyn Storm RN Unavailable Rubén Gunter [facility] Unavailable Andressa Ruiz-C Unavailable [phone] Suzan Harry MD Unavailable [phone] Yasmeen Powers MD Unavailable Yasmeen Powers MD Unavailable [phone] Encounter Details Date Type Department Care Team (Late st Contact Info) Description 12/27/[address] [facility] 909 [place] [address] Social History Tobacco Use Types [...] PM CDTOrder(s) created erroneously. 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, 07/10/16 rectal swab 06/21/2016 06/21/2016 documented as of this encounter Care Teams Under Water Assistant Relationship Specialty Start Date End Date Rubén Boyle MD PCP - General Family Practice 03/08/16 Pamela Blanco NP [facility] [address] [place], [place] 441817 Referring Physician 07/13/16 Pedro Segura MD [facility] [address] [place], [place] 782727 Nephrology 10/03/16 Freddy Craft MD [address] [place] [address] Assigned Gastroenterology Provider 02/08/20 Abdifatah Van MD 717 [facility] [address]ICK [address] [place] [address] Assigned Nephrology Provider 07/13/20 11/07/23 Nicole Carranza NP 420 [facility] 508 [place], [place] [address]1975 Assigned Heart and Vascular Provider 01/09/22 Andressa Ruiz PA-C 420 [facility] 803 [place], [place] 333865 Physician Pest Control Applicator Endocrinology, Diabetes, and Metabolism 03/01/22 Ashlyn Storm RN [facility] 711 [place], [place] 292724 Registered Nurse 03/03/22 09/15/22 Rubén Gunter [facility] 909 [place], [place] 812895 Assigned MTM Pharmacist 02/27/22 Andressa Ruiz PA-C 420 [facility] 803 [place], [place] 260715 Assigned Endocrinology Provider 03/13/22 09/07/23 Suzan Harry MD 420 [place], [place] 809465 Nephrology 06/30/23 Yasmeen Powers MD 500 [place], [place] 901155 Nephrology 10/24/23 Yasmeen Powers MD NPI: [id number] [place] [place] [address] Assigned Nephrology Provider 11/08/23 documented as of this encounter
--- OUTSIDE RECORDS SUMMARY | 2024-01-26 22:34 | XMS_ITS | Encounter Summary ---
Author Organization [facility] Address [address] [place] [address] Care Team Providers Care Salon Sales Consultant Name Role Phone Rubén Boyle MD Primary Care Provider Pamela Blanco TEAM CDL DRIVER Unavailable Pedro Segura MD Unavailable [phone] Freddy Craft MD Unavailable [phone] Abdifatah Van MD Unavailable Nicole Carranza TEAM CDL DRIVER Unavailable Andressa Ruiz-C Unavailable Ashlyn Storm RN Unavailable [phone] Rubén Gunter [facility] Unavailable Andressa Ruiz-C Unavailable Suzan Harry MD Unavailable [phone] Yasmeen Powers MD Unavailable Yasmeen Powers MD Unavailable [phone] Encounter Details Date Type Department Care Team (Late st Contact Info) Description 11/09/[address] [facility] 909 [place] [address] Social History Tobacco Use Types [...] documented as of this encounter Care Teams Salon Sales Consultant Relationship Specialty Start Date End Date Rubén Boyle MD PCP - General Family Practice 03/08/16 Pamela Blanco, TEAM CDL DRIVER [facility] [address] [place] [address] Referring Physician 07/13/16 Pedro Segura MD [facility] [address] [place], [place] [address]67 Nephrology 10/03/16 Freddy Craft MD 516 [facility] 2[facility] [place], [place] 883285 Assigned Gastroenterology Provider 02/08/20 Abdifatah Van MD 717 [facility] [address] [place], [place] 059084 Assigned Nephrology Provider 07/13/20 11/07/23 Nicole Carranza NP 420 [facility] 508 [place], [place] 374595 Assigned Heart and Vascular Provider 01/09/22 Andressa Ruiz PA-C 420 [facility] 803 [place], [place] 753735 Physician Networking Specialist Endocrinology, Diabetes, and Metabolism 03/01/22 Ashlyn Storm, RN [facility] 711 [place], [place] 220554 Registered Nurse 03/03/22 09/15/22 Rubén Gunter [facility] 909 [place] [address] Assigned [place] Pharmacist 02/27/22 Andressa Ruiz PA-C 420 [facility] 803 [place], [place] 282525 Assigned Endocrinology Provider 03/13/22 09/07/23 Suzan Harry MD 420 [place], [place] 068765 Nephrology 06/30/23 Yasmeen Powers MD 500 [place] [address] Nephrology 10/24/23 Yasmeen Powers MD 500 [place] [address] Assigned Nephrology Provider 11/08/23 documented as of this encounter
--- OUTSIDE RECORDS SUMMARY | 2024-01-26 22:34 | XMS_ITS | Encounter Summary ---
Author Organization [facility] Address [address] [place] [address] Care Team Providers Care Oracle Technical Architect Name Role Phone Rubén Boyle MD Primary Care Provider Pamela Blanco GUEST EXPERIENCE REPRESENTATIVE Unavailable Pedro Segura MD Unavailable [phone] Freddy Craft MD Unavailable [phone] Abdifatah Van MD Unavailable Nicole Carranza GUEST EXPERIENCE REPRESENTATIVE Unavailable [phone] Andressa Ruiz-C Unavailable [phone] Ashlyn Storm RN Unavailable Rubén Gunter [facility] Unavailable Andressa Ruiz-C Unavailable [phone] Suzan Harry MD Unavailable [phone] Yasmeen Powers MD Unavailable [phone] Yasmeen Powers MD Unavailable [phone] Encounter Details Date Type Department Care Team [...] as of this encounter Care Teams Oracle Technical Architect Relationship Specialty Start Date End Date Rubén Boyle MD PCP - General Family Practice 03/08/16 Pamela Blanco NP [facility] [address] [place], [place] 2942[address]37 Referring Physician 07/13/16 Pedro Segura MD [facility] [address] [place] [address] Nephrology 10/03/16 Freddy Craft MD 516 [facility] PWB 2A [place] [address] Assigned Gastroenterology Provider 02/08/20 Abdifatah Van MD 717 [facility] [address] SE V[address] [place] [address] Assigned Nephrology Provider 07/13/20 11/07/23 Nicole Carranza NP 420 [facility] 508 [place], [place] 309145 Assigned Heart and Vascular Provider 01/09/22 Andressa Ruiz PA-C 420 [facility] 803 [place] [address] Physician Career Development Director Endocrinology, Diabetes, and Metabolism 03/01/22 Ashlyn Storm, RN [facility] 711 [place] [address] Registered Nurse 03/03/22 09/15/22 Rubén Gunter [facility] [address] [place] [address] Assigned MTM Pharmacist 02/27/22 Andressa Ruiz PA-C 420 [facility] 803 [place] [address] Assigned Endocrinology Provider 03/13/22 09/07/23 Suzan Harry MD 420 [place] [address] Nephrology 06/30/23 Yasmeen Powers MD 500 [place] [address] Nephrology 10/24/23 Yasmeen Powers MD 500 [place] [address] Assigned Nephrology Provider 11/08/23 documented as of this encounter
--- OUTSIDE RECORDS SUMMARY | 2024-01-26 22:34 | XMS_ITS | Encounter Summary ---
Author Organization [facility] Address [address] [place] [address] Care Team Providers Care Trade Economist Name Role Phone Rubén Boyle MD Primary Care Provider Pamela Blanco CLOTH FOLDER HAND Unavailable Pedro Segura MD Unavailable [phone] Freddy Craft MD Unavailable Abdifatah Van MD Unavailable Nicole Carranza CLOTH FOLDER HAND Unavailable Andressa Ruiz-C Unavailable Ashlyn Storm RN Unavailable [phone] Rubén Gunter [facility] Unavailable Andressa Ruiz-C Unavailable Suzan Harry MD Unavailable [phone] Yasmeen Powers MD Unavailable Yasmeen Powers MD Unavailable [phone] Encounter Details Date Type Department Care Team (Late st Contact Info) Description 09/17/2016 External Order Results [facility] 909 [place] [address] Social History Tobacco Use Types [...] documented as of this encounter Care Teams Trade Economist Relationship Specialty Start Date End Date Rubén Boyle MD PCP - General Family Practice 03/08/16 Pamela Blanco CLOTH FOLDER HAND [facility] [address] [place], [place] 971267 Referring Physician 07/13/16 Pedro Segura MD [facility] [address] [place], [place] 8658[address]37 Nephrology 10/03/16 Freddy Craft MD 516 [facility] 2A [place] [address] Assigned Gastroenterology Provider 02/08/20 Abdifatah Van MD 717 [facility] VICK 353 [place] [address] Assigned Nephrology Provider 07/13/20 11/07/23 Nicole Carranza NP 420 [facility] 508 [place] [address] Assigned Heart and Vascular Provider 01/09/22 Andressa Ruiz PA-C 420 [facility] 803 [place] [address] Physician Carton Making Machinist Endocrinology, Diabetes, and Metabolism 03/01/22 Ashlyn Storm RN [facility] 711 [place], [place] 3[address] Registered Nurse 03/03/22 09/15/22 Rubén Gunter [facility] 909 [place] [address] Assigned MTM Pharmacist 02/27/22 Andressa Ruiz PA-C 420 [facility] 803 [place], [place] 922465 Assigned Endocrinology Provider 03/13/22 09/07/23 Suzan Harry MD 420 [place], [place] 496525 Nephrology 06/30/23 Yasmeen Powers MD 500 [place], [place] 565805 Nephrology 10/24/23 Yasmeen Powers MD 500 [place], [place] 173175 Assigned Nephrology Provider 11/08/23 documented as of this encounter
--- OUTSIDE RECORDS SUMMARY | 2024-01-26 22:34 | XMS_ITS | Encounter Summary ---
Author Organization [facility] Address [address] [place] [address] Care Team Providers Care Nuclear Cardiology Technologist Name Role Phone Rubén Boyle MD Primary Care Provider Pamela Blanco R PROGRAMMER Unavailable Pedro Segura MD Unavailable [phone] Freddy Craft MD Unavailable [phone] Abdifatah Van MD Unavailable Nicole Carranza R PROGRAMMER Unavailable [phone] Andressa Ruiz-C Unavailable [phone] Ashlyn Storm RN Unavailable [phone] Rubén Gunter [facility] Unavailable Andressa Ruiz-C Unavailable [phone] Suzan Harry MD Unavailable [phone] Yasmeen Powers MD Unavailable [phone] Yasmeen Powers MD Unavailable [phone] Encounter Details Date Type Department Care Team (Late st Contact Info) Description 10/05/2016 External Order Results [facility] 909 [place] [address] Social History Tobacco Use Types [...] documented as of this encounter Care Teams Nuclear Cardiology Technologist Relationship Specialty Start Date End Date Rubén Boyle MD PCP - General Family Practice 03/08/16 Pamela Blanco NP [facility] [address] [place] [address] Referring Physician 07/13/16 Pedro Segura MD [facility] 855850 [place] [address] Nephrology 10/03/16 Freddy Craft MD [address] [place] [address] 2A [place] [address] Assigned Gastroenterology Provider 02/08/20 Abdifatah Van MD 717 [facility] [address] 353 [place] [address] Assigned Nephrology Provider 07/13/20 11/07/23 Nicole Carranza, [place] 420 [facility] 508 [place] [address] Assigned Heart and Vascular Provider 01/09/22 Andressa Ruzi PA-C 420 [facility] 803 [place] [address] Physician Staff Developer Endocrinology, Diabetes, and Metabolism 03/01/22 Ashlyn Storm, RN [facility] 711 [place] [address] Registered Nurse 03/03/22 09/15/22 Rubén Gunter [facility] [address] [place] [address] Assigned MTM Pharmacist 02/27/22 Andressa Ruiz PA-C 420 [facility] 803 [place] [address] Assigned Endocrinology Provider 03/13/22 09/07/23 Suzan Harry MD 420 [place] [address] Nephrology 06/30/23 Yasmeen Powers MD [address] [place] [address] Nephrology 10/24/23 Yasmeen Powers MD 500 [place] [address] Assigned Nephrology Provider 11/08/23 documented as of this encounter
--- OUTSIDE RECORDS SUMMARY | 2024-01-26 22:34 | XMS_ITS | Encounter Summary ---
Author Organization [facility] Address [address] [place] [address] Care Team Providers Care Record Keeper Name Role Phone Rubén Boyle MD Primary Care Provider Pamela Blanco HOT BOX SPOTTER Unavailable [phone] Pedro Segura MD Unavailable Freddy Craft MD Unavailable [phone] Abdifatah Van MD Unavailable Nicole Carranza HOT BOX SPOTTER Unavailable [phone] Andressa Ruiz-C Unavailable Ashlyn Storm RN Unavailable [phone] Rubén Gunter [facility] Unavailable Andressa Ruiz-C Unavailable Suzan Harry MD Unavailable [phone] Yasmeen Powers MD Unavailable Yasmeen Powers MD Unavailable [phone] Encounter Details Date Type Department Care Team (Late st Contact Info) Description 08/25/2016 External Order Results [facility] 909 [place] [address] Social History Tobacco Use Types [...] documented as of this encounter Care Teams Record Keeper Relationship Specialty Start Date End Date Rubén Boyle MD PCP - General Family Practice 03/08/16 Pamela Blanco NP [facility] [address] [place] [address] Referring Physician 07/13/16 Pedro Segura MD [facility] [address] [place], [place] 856737 Nephrology 10/03/16 Freddy Craft MD 516 [facility] PWB 2A [place] [address] Assigned Gastroenterology Provider 02/08/20 Abdifatah Van MD 717 [facility] [address] 353 [place] [address] Assigned Nephrology Provider 07/13/20 11/07/23 Nicole Carranza NP 420 [facility] 508 [place] [address] Assigned Heart and Vascular Provider 01/09/22 Andressa Ruiz PA-C 420 [facility] 803 [place] [address] Physician Negative Checker Endocrinology, Diabetes, and Metabolism 03/01/22 Ashlyn Storm RN [facility] 711 [place] [address] Registered Nurse 03/03/22 09/15/22 Rubén Gunter [facility] [address] [place] [address] Assigned MTM Pharmacist 02/27/22 Andressa Ruiz PA-C [address] [place], [place] [address] [place] [address] Assigned Endocrinology Provider 03/13/22 09/07/23 Suzan Harry MD [address] [place] [address] Nephrology 06/30/23 Yasmeen Powers MD 500 [place], [place] 178275 Nephrology 10/24/23 Yasmeen Powers MD 500 [place] [address] Assigned Nephrology Provider 11/08/23 documented as of this encounter
--- OUTSIDE RECORDS SUMMARY | 2024-01-26 22:34 | XMS_ITS | Encounter Summary ---
Author Organization [facility] Address [address] [place] [address] Care Team Providers Care Recycling Manager Name Role Phone Rubén Boyle MD Primary Care Provider Pamela Blanco BAND CUTTER Unavailable Pedro Segura MD Unavailable [phone] Freddy Craft MD Unavailable Abdifatah Van MD Unavailable Nicole Carranza BAND CUTTER Unavailable [phone] Andressa Ruiz-C Unavailable Ashlyn Storm RN Unavailable Rubén Gunter [facility] Unavailable Andressa Ruiz-C Unavailable Suzan Harry MD Unavailable [phone] Yasmeen Powers MD Unavailable [phone] Yasmeen Powers MD Unavailable [phone] Encounter Details Date Type Department Care Team (Late st Contact Info) Description 08/30/2016 External Order Results [facility] 909 [place] [address] Social History Tobacco Use Types [...] documented as of this encounter Care Teams Recycling Manager Relationship Specialty Start Date End Date Rubén Boyle MD PCP - General Family Practice 03/08/16 Pamela Blanco NP [facility] [address] [place] [address] Referring Physician 07/13/16 Pedro Segura MD [facility] [address] [place] [address] Nephrology 10/03/16 Freddy Craft MD 516 [facility] [place], [place] 862445 Assigned Gastroenterology Provider 02/08/20 Abdifatah Van MD 717 [facility] VICK 353 [place], [place] 717024 Assigned Nephrology Provider 07/13/20 11/07/23 Nicole Carranza NP 420 [facility] 508 [place], [place] 125515 Assigned Heart and Vascular Provider 01/09/22 Andressa Ruiz PA-C 420 [facility] 803 [place], [place] 539455 Physician Electrician Office Endocrinology, Diabetes, and Metabolism 03/01/22 Ashlyn Storm, RN [facility] 711 [place], [place] 619294 Registered Nurse 03/03/22 09/15/22 Rubén Gunter [facility] 909 [place] [address] Assigned MTM Pharmacist 02/27/22 Andressa Ruiz PA-C 420 [facility] 803 [place] [address] Assigned Endocrinology Provider 03/13/22 09/07/23 Suzan Harry MD 420 [place] [address] Nephrology 06/30/23 Yasmeen Powers MD 500 [place] [address] Nephrology 10/24/23 Yasmeen Powers MD 500 [place] [address] Assigned Nephrology Provider 11/08/23 documented as of this encounter
--- OUTSIDE RECORDS SUMMARY | 2024-01-26 22:34 | XMS_ITS | Encounter Summary ---
Author Organization [place] Address [address] [place] [address] Care Team Providers Care Automotive Diagnostic Technician Name Role Phone Rubén Boyle MD Primary Care Provider Pamela Blanco CHURNER Unavailable Pedro Segura MD Unavailable [phone] Freddy Craft MD Unavailable Abdifatah Van MD Unavailable Nicole Carranza CHURNER Unavailable [phone] Andressa Ruiz-C Unavailable Ashlyn Storm RN Unavailable Rubén Gunter [facility] Unavailable Andressa Ruiz-C Unavailable Suzan Harry MD Unavailable [phone] Yasmeen Powers MD Unavailable Yasmeen Powers MD Unavailable [phone] Encounter Details Date Type Department Care Team (Late st Contact Info) Description 09/22/2016 External Order Results [facility] 909 [place] [address] Social History Tobacco Use Types [...] documented as of this encounter Care Teams Automotive Diagnostic Technician Relationship Specialty Start Date End Date Rubén Boyle MD PCP - General Family Practice 03/08/16 Pamela Blanco NP [address] [address] Referring Physician 07/13/16 Pedro Segura MD [facility] [address] [place] [address] Nephrology 10/03/16 Freddy Craft MD 516 [facility] 2A [place] [address] Assigned Gastroenterology Provider 02/08/20 Abdifatah Van MD 717 [facility] [address] [place] [address] Assigned Nephrology Provider 07/13/20 11/07/23 Nicole Carranza NP 420 [facility] 508 [place], [place] 334605 Assigned Heart and Vascular Provider 01/09/22 Andressa Ruiz PA-C 420 [facility] 803 [place], [place] 289895 Physician Skilled Nursing Professional Endocrinology, Diabetes, and Metabolism 03/01/22 Ashlyn Storm RN [facility] 711 [place] [address] Registered Nurse 03/03/22 09/15/22 Rubén Gunter [facility] [address] [place] [address] 903295 Assigned MTM Pharmacist 02/27/22 Andressa Ruiz PA-C 420 [facility] 803 [place], [place] 780295 Assigned Endocrinology Provider 03/13/22 09/07/23 Suzan Harry MD [address] [place] [address] Nephrology 06/30/23 Yasmeen Powers MD 500 [place], [place] 333805 Nephrology 10/24/23 Yasmeen Powers MD 500 [place], [place] 472005 Assigned Nephrology Provider 11/08/23 documented as of this encounter
--- OUTSIDE RECORDS SUMMARY | 2024-01-26 22:34 | XMS_ITS | Encounter Summary ---
Author Organization [place] Address [address] [place] [address] Care Team Providers Care Fertilizer Applicator Name Role Phone Rubén Boyle MD Primary Care Provider [phone] Pamela Blanco DIRECTOR OF LABOR AND DELIVERY Unavailable Pedro Segura MD Unavailable Freddy Craft MD Unavailable Abdifatah Van MD Unavailable Nicole Carranza DIRECTOR OF LABOR AND DELIVERY Unavailable [phone] Andressa Ruiz-C Unavailable Ashlyn Storm RN Unavailable [phone] Rubén Gunter [facility] Unavailable Andressa Ruiz-C Unavailable [phone] Suzan Harry MD Unavailable [phone] Yasmeen Powers MD Unavailable [phone] Yasmeen Powers MD Unavailable [phone] Encounter Details Date Type Department Care Team (Latest Contact Info) Description 09/02/2016 External Order Results [facility] 909 [place] [address] History of liver transplant (H); [...] Body Fluid Analysis Source [facility] Color Fluid Yellow [facility]IVER[facility] Appearance Fluid Cloudy [facility] RBC Fluid << Do Not Report >> /uL [facility] WBC Fluid 1254 /uL [facility] % Neutrophils Fluid 82 % [facility] % Lymphocytes Fluid 1 % [facility] % Nye/Macro Fluid 16 % [facility] % Basophils Fluid 1 % [facility] 09/02/2016 2:45 PM CDT 09/02/2016 4:01 PM CDT Aime Vu MD LAB - BODY FLUIDS ORDERABLES [facility] [address] [phone] * Triglyceride Fluid (09/02/2016 2:45 PM CDT) Triglyceride Fluid Source [facility] Triglyceride Fluid 362 mg/dL [facility] Comment: No reference ranges have been established. ??This result should be interpreted in the context of the patient's clinical condition and compared to simultaneous measurement in the patient's blood. ??Refer to Lab Guide for specific interpretive guidelines. Pleural fluid specimen (specimen) 09/02/2016 2:45 PM CDT 09/02/2016 4:01 PM CDT Aime Vu MD LAB - BODY FLUIDS ORDERABLES [id number] [place] [address] [phone] * (ABNORMAL) TXP External Lab Result (09/02/2016 [...] documented as of this encounter Care Teams Fertilizer Applicator Relationship Specialty Start Date End Date Rubén Boyle MD PCP - General Family Practice 03/08/16 Pamela Blanco, DIRECTOR OF LABOR AND DELIVERY [facility] [address] [place] [address] Referring Physician 07/13/16 Pedro Segura MD [facility] [address] [place] [address] Nephrology 10/03/16 Freddy Craft MD 516 [facility] 2A [place], [place] 361895 Assigned Gastroenterology Provider 02/08/20 Abdifatah Van MD 717 [facility] [address] [place], [place] 821144 Assigned Nephrology Provider 07/13/20 11/07/23 Nicole Carranza NP 420 [facility] 508 [place], [place] 784765 Assigned Heart and Vascular Provider 01/09/22 Andressa Ruiz PA-C 420 [facility] MMC 803 [place], [place] 762685 Physician Curriculum Supervisor Endocrinology, Diabetes, and Metabolism 03/01/22 Ashlyn Storm RN [facility] 711 [place], [place] 043404 Registered Nurse 03/03/22 09/15/22 Rubén Gunter [facility] 909 [facility] [place], [place] 247585 Assigned MTM Pharmacist 02/27/22 Andressa Ruiz PA-C 420 [facility] 803 [place], [place] 944175 Assigned Endocrinology Provider 03/13/22 09/07/23 Suzan Harry MD 420 [place], [place] 827705 Nephrology 06/30/23 Yasmeen Powers MD 500 [place], [place] 411065 Nephrology 10/24/23 Yasmeen Powers MD 500 [place] [address] Assigned Nephrology Provider 11/08/23 documented as of this encounter
--- OUTSIDE RECORDS SUMMARY | 2024-01-26 22:34 | XMS_ITS | Encounter Summary ---
Author Organization [place] Address [address] [place] [address] Care Team Providers Care Web Site Admin Name Role Phone Rubén Boyle MD Primary Care Provider Pamela Blanco CONFERENCE SERVICES MANAGER Unavailable Pedro Segura MD Unavailable Freddy Craft MD Unavailable [phone] Abdifatah Van MD Unavailable Nicole Carranza CONFERENCE SERVICES MANAGER Unavailable Andressa Ruiz-C Unavailable [phone] Ashlyn Storm RN Unavailable [phone] Rubén Gunter [facility] Unavailable Andressa Ruiz-C Unavailable [phone] Suzan Harry MD Unavailable [phone] Yasmeen Powers MD Unavailable [phone] Yasmeen Powers MD Unavailable [phone] Encounter Details Date Type Department Care Team (Late st Contact Info) Description 11/03/2016 External Order Results [facility] 909 [place] [address] Social History Tobacco Use Types [...] as of this encounter Care Teams Web Site Admin Relationship Specialty Start Date End Date Rubén Boyle MD PCP - General Family Practice 03/08/16 Pamela Blanco CONFERENCE SERVICES MANAGER [facility] [address] [place] [address] Referring Physician 07/13/16 Pedro Segura MD [facility] [address] [place], [place] 358027 Nephrology 10/03/16 Freddy Craft MD 516 [facility] 2A [place], [place] 63491455 Assigned Gastroenterology Provider 02/08/20 Abdifatah Van MD 717 [facility] [address] [place], [place] 6929[address]14 Assigned Nephrology Provider 07/13/20 11/07/23 Nicole Carranza NP 420 [facility] 508 [place], [place] 210895 Assigned Heart and Vascular Provider 01/09/22 Andressa Ruiz PA-C 420 [facility] 803 [place], [place] 533185 Physician Assistant District Attorney Endocrinology, Diabetes, and Metabolism 03/01/22 Ashlyn Storm, RN [facility] 711 [place] [address] Registered Nurse 03/03/22 09/15/22 Rubén Gunter [facility] 909 [place], [place] 749645 Assigned MTM Pharmacist 02/27/22 Andressa Ruiz PA-C 420 [facility] 803 [place] [address] Assigned Endocrinology Provider 03/13/22 09/07/23 Suzan Harry MD 420 [place], [place] 25324455 Nephrology 06/30/23 Yasmeen Powers MD 500 [place], [place] 57235455 Nephrology 10/24/23 Yasmeen Powers MD 500 [place], [place] 695555 Assigned Nephrology Provider 11/08/23 documented as of this encounter
--- OUTSIDE RECORDS SUMMARY | 2024-01-26 22:34 | XMS_ITS | Encounter Summary ---
Author Organization [place] Address [address] [place] [address] Care Team Providers Care Cigarette Packing Machine Operator Name Role Phone Rubén Boyle MD Primary Care Provider Pamela Blanco TECHNICAL BUYER Unavailable Pedro Segura MD Unavailable [phone] Freddy Craft MD Unavailable Abdifatah Van MD Unavailable Nicole Carranza TECHNICAL BUYER Unavailable [phone] Andressa Ruiz-C Unavailable Ashlyn Storm RN Unavailable Rubén Gunter [facility] Unavailable Andressa Ruiz-C Unavailable [phone] Suzan Harry MD Unavailable [phone] Yasmeen Powers MD Unavailable [phone] Yasmeen Powers MD Unavailable [phone] Encounter Details Date Type Department Care Team (Late st Contact Info) Description 09/14/[address] [facility] 909 [place] [address] Social History Tobacco Use Types [...] documented as of this encounter Care Teams Cigarette Packing Machine Operator Relationship Specialty Start Date End Date Rubén Boyle MD PCP - General Family Practice 03/08/16 Pamela Blanco TECHNICAL BUYER [facility] [address] [place] [address] Referring Physician 07/13/16 Pedro Segura MD [facility] [address] [place], [place] 731617 Nephrology 10/03/16 Freddy Craft MD 516 [facility] 2A [place], [place] 87445455 Assigned Gastroenterology Provider 02/08/20 Abdifatah Van MD 717 [facility] [address] 353 [place], [place] 67621414 Assigned Nephrology Provider 07/13/20 11/07/23 Nicole Carranza NP 420 [facility] 508 [place], [place] 127035 Assigned Heart and Vascular Provider 01/09/22 Andressa Ruiz PA-C 420 [facility] 803 [place], [place] 244225 Physician Rolling Up Machine Operator Endocrinology, Diabetes, and Metabolism 03/01/22 Ashlyn Storm, RN [facility] 711 [place] [address] Registered Nurse 03/03/22 09/15/22 Rubén Gunter [facility] 909 [place], [place] 99108455 Assigned MTM Pharmacist 02/27/22 Andressa Ruiz PA-C 420 [facility] 803 [place] [address] Assigned Endocrinology Provider 03/13/22 09/07/23 Suzan Harry MD 420 [place] [address] Nephrology 06/30/23 Yasmeen Powers MD 500 [place], [place] 366434[address] Nephrology 10/24/23 Yasmeen Powers MD 500 [place], [place] 972185 Assigned Nephrology Provider 11/08/23 documented as of this encounter
--- OUTSIDE RECORDS SUMMARY | 2024-01-26 22:34 | XMS_ITS | Encounter Summary ---
Author Organization [place] Address [address] [place] [address] Care Team Providers Care Library Manager Name Role Phone Rubén Boyle MD Primary Care Provider Pamela Blanco SENIOR TECHNOLOGIST Unavailable Pedro Segura MD Unavailable Freddy Crfat MD Unavailable Abdifatah Van MD Unavailable Nicole Carranza SENIOR TECHNOLOGIST Unavailable [phone] Andressa Ruiz-C Unavailable Ashlyn Storm RN Unavailable [phone] Rubén Gunter [facility] Unavailable Andressa Ruiz-C Unavailable [phone] Suzan Harry MD Unavailable [phone] Yasmeen Powers MD Unavailable Yasmeen Powers MD Unavailable [phone] Encounter Details Date Type Department Care Team (Late st Contact Info) Description 09/23/2016 External Order Results [facility] 909 [place] [address] Social History Tobacco Use Types [...] documented as of this encounter Care Teams Library Manager Relationship Specialty Start Date End Date Rubén Boyle MD PCP - General Family Practice 03/08/16 Pamela Blanco NP [facility] [address] [place] [address] Referring Physician 07/13/16 Pedro Segura MD [facility] [address] [place] [address] Nephrology 10/03/16 Freddy Craft MD 516 [facility] 2A [place], [place] 386025 Assigned Gastroenterology Provider 02/08/20 Abdifatah Van MD 717 [facility] [address] 353 [place], [place] 6[address]14 Assigned Nephrology Provider 07/13/20 11/07/23 Nicole Carranza NP 420 [facility] 508 [place], [place] 87577455 Assigned Heart and Vascular Provider 01/09/22 Andressa Ruiz PA-C 420 [facility] 803 [place], [place] 523[address] Physician Job Coach/Job Developer Endocrinology, Diabetes, and Metabolism 03/01/22 Ashlyn Storm, RN [facility] 711 [place] [address] Registered Nurse 03/03/22 09/15/22 Rubén Gunter [facility] 909 [place] [address] Assigned MTM Pharmacist 02/27/22 Andressa Ruiz PA-C 420 [facility] 803 [place] [address] Assigned Endocrinology Provider 03/13/22 09/07/23 Suzan Harry MD 420 [place] [address] Nephrology 06/30/23 Yasmeen Powers MD 500 [place], [place] 920485 Nephrology 10/24/23 Yasmeen Powers MD 500 [place], [place] 533125 Assigned Nephrology Provider 11/08/23 documented as of this encounter
--- OUTSIDE RECORDS SUMMARY | 2024-01-26 22:34 | XMS_ITS | Encounter Summary ---
Author Organization [place] Address [address] [place] [address] Care Team Providers Care Operations Boardman Name Role Phone Rubén Boyle MD Primary Care Provider Pamela Blanco LABOR RELATIONS TEACHER Unavailable Pedro Segura MD Unavailable Freddy Craft MD Unavailable Abdifatah Van MD Unavailable Nicole Carranza LABOR RELATIONS TEACHER Unavailable [phone] Andressa Ruiz-C Unavailable [phone] Ashlyn Storm RN Unavailable Rubén Gunter [facility] Unavailable Andressa Riuz-C Unavailable Suzan Harry MD Unavailable [phone] Yasmeen Powers MD Unavailable Yasmeen Powers MD Unavailable [phone] Encounter Details Date Type Department Care Team (Late st Contact Info) Description 10/13/2016 External Order Results [facility] 909 [place] [address] Social History Tobacco Use Types [...] documented as of this encounter Care Teams Operations Boardman Relationship Specialty Start Date End Date Rubén Boyle MD PCP - General Family Practice 03/08/16 Pamela Blanco NP [facility] [address] [place] [address] Referring Physician 07/13/16 Pedro Segura MD [facility] [address] [place] [address] Nephrology 10/03/16 Freddy Craft MD 516 [facility] 2A [place], [place] 069785 Assigned Gastroenterology Provider 02/08/20 Abdifatah Van MD 717 [facility] [address] [place], [place] 925724 Assigned Nephrology Provider 07/13/20 11/07/23 Nicole Carranza NP 420 [facility] MMC 508 [place], [place] 428345 Assigned Heart and Vascular Provider 01/09/22 Andressa Ruiz PA-C 420 [facility]MC 803 [place], [place] 7[address]695 Physician Vascular Ultrasound Technician Endocrinology, Diabetes, and Metabolism 03/01/22 Ashlyn Storm, RN [facility] 711 [place], [place] 617674 Registered Nurse 03/03/22 09/15/22 Rubén Gunter [facility] 909 [facility] SE [place], [place] 427975 Assigned MTM Pharmacist 02/27/22 Andressa Ruiz PA-C 420 [facility] 803 [place] [address] Assigned Endocrinology Provider 03/13/22 09/07/23 Suzan Harry MD 420 [place] [address] Nephrology 06/30/23 Yasmeen Powers MD 500 [place] [address] Nephrology 10/24/23 Yasmeen Powers MD 500 [place] [address] Assigned Nephrology Provider 11/08/23 documented as of this encounter
--- OUTSIDE RECORDS SUMMARY | 2024-01-26 22:34 | XMS_ITS | Encounter Summary ---
Author Organization [place] Address [address] [place] [address] Care Team Providers Care Motor Boss Name Role Phone Rubén Boyle MD Primary Care Provider [phone] Pamela Blanco PAY STATION DEPARTMENT MANAGER Unavailable Pedro Segura MD Unavailable [phone] Freddy Craft MD Unavailable [phone] Abdifatah Van MD Unavailable Nicole Carranza PAY STATION DEPARTMENT MANAGER Unavailable [phone] Andressa Ruiz-C Unavailable Ashlyn Storm RN Unavailable [phone] Rubén Gunter [facility] Unavailable Andressa Ruiz-C Unavailable [phone] Suzan Harry MD Unavailable [phone] Yasmeen Powers MD Unavailable Yasmeen Powers MD Unavailable [phone] Encounter Details Date Type Department Care Team (Late st Contact Info) Description 09/06/2016 External Order Results [facility] 909 [place] [address] Social History Tobacco Use Types [...] as of this encounter Care Teams Motor Boss Relationship Specialty Start Date End Date Rubén Boyle MD PCP - General Family Practice 03/08/16 Pamela Blanco PAY STATION DEPARTMENT MANAGER [facility] [address] [place], [place] 033667 Referring Physician 07/13/16 Pedro Segura MD [facility] [address] [place], [place] 025847 Nephrology 10/03/16 Freddy Craft MD [address] [place] [address] 022155 Assigned Gastroenterology Provider 02/08/20 Abdifatah Van MD 717 [facility] [address]ICK [address] [place] [address] Assigned Nephrology Provider 07/13/20 11/07/23 Nicole Carranza NP 420 [facility] 508 [place] [address] Assigned Heart and Vascular Provider 01/09/22 Andressa Ruiz PA-C 420 [facility] 803 [place] [address] Physician Visual Communications Instructor Endocrinology, Diabetes, and Metabolism 03/01/22 Ashlyn Storm RN [facility] 711 [place] [address] Registered Nurse 03/03/22 09/15/22 Rubén Gunter [facility] [address] [place] [address] Assigned MTM Pharmacist 02/27/22 Andressa Ruiz PA-C 420 [facility] 803 [place] [address] Assigned Endocrinology Provider 03/13/22 09/07/23 Suzan Hrary MD 420 [place] [address] Nephrology 06/30/23 Yasmeen Powers MD 500 [place], [place] 759805 Nephrology 10/24/23 Yasmeen Powers MD 500 [place] [address] Assigned Nephrology Provider 11/08/23 documented as of this encounter
--- OUTSIDE RECORDS SUMMARY | 2024-01-26 22:34 | XMS_ITS | Encounter Summary ---
Author Organization [place] Address [address] [place] [address] Care Team Providers Care Biosecurity Officer Name Role Phone Rubén Boyle MD Primary Care Provider Pamela Blanco TAPER OPERATOR Unavailable [phone] Pedro Segura MD Unavailable [phone] Freddy Craft MD Unavailable Abdifatah Van MD Unavailable Nicole Carranza TAPER OPERATOR Unavailable [phone] Andressa Ruiz-C Unavailable Ashlyn Storm RN Unavailable [phone] Rubén Gunter [facility] Unavailable Andressa Ruiz-C Unavailable [phone] Suzan Harry MD Unavailable [phone] Yasmeen Powers MD Unavailable Yasmeen Powers MD Unavailable [phone] Encounter Details Date Type Department Care Team (Late st Contact Info) Description 10/14/2016 External Order Results [facility] 909 [place] [address] Social History Tobacco Use Types [...] documented as of this encounter Care Teams Biosecurity Officer Relationship Specialty Start Date End Date Rubén Boyle MD PCP - General Family Practice 03/08/16 Pamela Blanco, [place] [facility] [address] [place] [address] Referring Physician 07/13/16 Pedro Segura MD [facility] [address] [place] [address] Nephrology 10/03/16 Freddy Craft MD 516 [facility] 2A [place], [place] 987455 Assigned Gastroenterology Provider 02/08/20 Abdifatah Van MD [address] [place] [address] 353 [place], [place] 90769414 Assigned Nephrology Provider 07/13/20 11/07/23 Nicole Carranza NP 420 [facility] 508 [place], [place] 312885 Assigned Heart and Vascular Provider 01/09/22 Andressa Ruiz PA-C 420 [facility] 803 [place], [place] 7845[address] Physician Bench Molder Apprentice Endocrinology, Diabetes, and Metabolism 03/01/22 Ashlyn Storm RN [facility] 711 [place], [place] 30002414 Registered Nurse 03/03/22 09/15/22 Rubén Gunter [facility] 909 [place], [place] 408725 Assigned MTM Pharmacist 02/27/22 Andressa Ruiz PA-C 420 [facility] 803 [place], [place] 801595 Assigned Endocrinology Provider 03/13/22 09/07/23 Suzan Harry MD 420 [place], [place] 593665 Nephrology 06/30/23 Yasmeen Powers MD 500 [place] [address] Nephrology 10/24/23 Yasmeen Powers MD 500 [place] [address] Assigned Nephrology Provider 11/08/23 documented as of this encounter
--- OUTSIDE RECORDS SUMMARY | 2024-01-26 22:34 | XMS_ITS | Encounter Summary ---
Author Organization [place] Address [address] [place] [address] Care Team Providers Care Topographical Surveyor Name Role Phone Rubén Boyle MD Primary Care Provider Pamela Blanco CHIEF HYDROELECTRIC STATION OPERATOR Unavailable Pedro Segura MD Unavailable Freddy Craft MD Unavailable Abdifatah Van MD Unavailable Nicole Carranza CHIEF HYDROELECTRIC STATION OPERATOR Unavailable Andressa Ruiz-C Unavailable [phone] Ashlyn Storm RN Unavailable Rubén Gunter [facility] Unavailable Andressa Ruiz-C Unavailable Suzan Harry MD Unavailable [phone] Yasmeen Powers MD Unavailable Yasmeen Powers MD Unavailable [phone] Encounter Details Date Type Department Care Team (Late st Contact Info) Description 10/26/2016 External Order Results [facility] 909 [place] [address] Social History Tobacco Use Types [...] documented as of this encounter Care Teams Topographical Surveyor Relationship Specialty Start Date End Date Rubén Boyle MD PCP - General Family Practice 03/08/16 Pamela Blanco CHIEF HYDROELECTRIC STATION OPERATOR [facility] [address] [place] [address] Referring Physician 07/13/16 Pedro Segura MD [facility] [address] [place] [address] Nephrology 10/03/16 Freddy Craft MD 516 [facility] 2A [place], [place] 936615 Assigned Gastroenterology Provider 02/08/20 Abdifatah Van MD 717 [facility] VICK 353 [place], [place] 650654 Assigned Nephrology Provider 07/13/20 11/07/23 Nicole Carranza NP 420 [facility] 508 [place], [place] 233755 Assigned Heart and Vascular Provider 01/09/22 Andressa Ruiz PA-C 420 [facility] 803 [place], [place] 492495 Physician Community Dietitian Endocrinology, Diabetes, and Metabolism 03/01/22 Ashlyn Storm, RN [facility] 711 [place], [place] 24419414 Registered Nurse 03/03/22 09/15/22 Rubén Gunter [facility] 909 [place], [place] 47783455 Assigned MTM Pharmacist 02/27/22 Andressa Ruiz PA-C 420 [facility] 803 [place], [place] 982405 Assigned Endocrinology Provider 03/13/22 09/07/23 Suzan Harry MD [address] [place] [address] 091585 Nephrology 06/30/23 Yasmeen Powers MD 500 [place], [place] 786315 Nephrology 10/24/23 Yasmeen Powers MD 500 [place], [place] 690885 Assigned Nephrology Provider 11/08/23 documented as of this encounter
--- OUTSIDE RECORDS SUMMARY | 2024-01-26 22:35 | XMS_ITS | Encounter Summary ---
Author Organization [facility] Address [address] [place] [address] Care Team Providers Care Portfolio Architect Name Role Phone Rubén Boyle MD Primary Care Provider Pamela Blanco LPN INSTRUCTOR Unavailable Pedro Segura MD Unavailable [phone] Freddy Craft MD Unavailable Abdifatah Van MD Unavailable Nicole Carranza LPN INSTRUCTOR Unavailable [phone] Andressa Ruiz-C Unavailable [phone] Ashlyn Storm RN Unavailable [phone] Rubén Gunter [facility] Unavailable Andressa Ruiz-C Unavailable Suzan Harry MD Unavailable [phone] Yasmeen Powers MD Unavailable [phone] Yasmeen Powers MD Unavailable [phone] Encounter Details Date Type Department Care Team (Late st Contact Info) Description 08/24/2016 External Order Results [facility] [address] [place] [address] Social History Tobacco Use Types [...] documented as of this encounter Care Teams Portfolio Architect Relationship Specialty Start Date End Date Rubén Boyle MD PCP - General Family Practice 03/08/16 Pamela Blanco NP [facility] [address] [place] [address] Referring Physician 07/13/16 Pedro Segura MD [facility] [address] [place] [address] Nephrology 10/03/16 rFeddy Craft MD 516 [facility] [place], [place] [address] Assigned Gastroenterology Provider 02/08/20 Abdifatah Van MD 717 [facility] [address] [place], [place] 6[address]504 Assigned Nephrology Provider 07/13/20 11/07/23 Nicole Carranza NP 420 [facility] 508 [place], [place] [address] Assigned Heart and Vascular Provider 01/09/22 Andressa Ruiz PA-C 420 [facility] 803 [place], [place] 53[address] Physician Air Brake Adjuster Endocrinology, Diabetes, and Metabolism 03/01/22 Ashlyn Storm RN [facility] 711 [place], [place] [id number] Registered Nurse 03/03/22 09/15/22 Rubén Gunter [facility] [address] [place] [address] Assigned MTM Pharmacist 02/27/22 Andressa Ruiz PA-C 420 [facility] 803 [place] [address] Assigned Endocrinology Provider 03/13/22 09/07/23 Suzan Harry MD [address] [place] [address] Nephrology 06/30/23 Yasmeen Powers MD 500 [place] [address] Nephrology 10/24/23 Yasmeen Powers MD 500 [place] [address] Assigned Nephrology Provider 11/08/23 documented as of this encounter
--- OUTSIDE RECORDS SUMMARY | 2024-01-26 22:35 | XMS_ITS | Encounter Summary ---
Author Organization [facility] Address [address] [place] [address] Care Team Providers Care Velvet Cutter Name Role Phone Rubén Boyle MD Primary Care Provider [phone] Pamela Blanco SUPERINTENDENT SALES Unavailable [phone] Pamela Blanco SUPERINTENDENT SALES Unavailable [phone] Pedro Segura MD Unavailable Freddy Craft MD Unavailable [phone] Abdifatah Van MD Unavailable Nicole Carranza SUPERINTENDENT SALES Unavailable [phone] Andressa RuizC Unavailable [phone] Ashlyn Storm RN Unavailable Rubén Gunter [facility] Unavailable Andressa RuizC Unavailable [phone] Suzan Harry MD Unavailable [phone] Yasmeen Powers MD Unavailable Yasmeen Powers [...] documented as of this encounter Care Teams Velvet Cutter Relationship Specialty Start Date End Date Rubén Boyle MD PCP - General Family Practice 03/08/16 Pamela Blanco NP Referring Physician Gastroenterology 03/08/16 07/12/16 Pamela Blanco NP [facility] [address] [place] [address] Referring Physician 07/13/16 Pedro Segura MD [facility] [address] [place] [address] Nephrology 10/03/16 Freddy Craft MD 516 [facility] [address] [place] [address] Assigned Gastroenterology Provider 02/08/20 Abdifatah Van MD [address] [place] [address] Assigned Nephrology Provider 07/13/20 11/07/23 Nicole Carranza NP 420 [facility] 508 [place], [place] [address] Assigned Heart and Vascular Provider 01/09/22 Andressa Ruiz PA-C 420 [facility] 803 [place], [place] [address] Physician Gymnastics Instructor Endocrinology, Diabetes, and Metabolism 03/01/22 Ashlyn Storm, RN [facility] 711 [place], [place] [address]194 Registered Nurse 03/03/22 09/15/22 Rubén Gunter [facility] [address] [place] [address] 863865 Assigned MTM Pharmacist 02/27/22 09/07/23 Andressa Ruiz PA-C 420 [facility] 803 [place], [place] 324615 Assigned Endocrinology Provider 03/13/22 09/07/23 Suzan [place] MD 420 [place], [place] 4[address]15 Nephrology 06/30/23 Yasmeen Powers MD 500 [place], [place] 78[address] Nephrology 10/24/23 Yasmeen Powers MD 500 [place], [place] 413605 Assigned Nephrology Provider 11/08/23 documented as of this encounter
--- OUTSIDE RECORDS SUMMARY | 2024-01-26 22:35 | XMS_ITS | Encounter Summary ---
Author Organization [facility] Address [address] [place] [address] Care Team Providers Care Director Of Testing Name Role Phone Rubén Boyle MD Primary Care Provider Pamela Blanco SANFORIZING MACHINE OPERATOR Unavailable Pamela Blanco SANFORIZING MACHINE OPERATOR Unavailable Pedro Segura MD Unavailable Freddy Craft MD Unavailable Abdifatah Van MD Unavailable Nicole Carranza SANFORIZING MACHINE OPERATOR Unavailable [phone] Andressa RuizC Unavailable [phone] Ashlyn Storm RN Unavailable [phone] Rubén Gunter [facility] Unavailable Andressa RuizC Unavailable Suzan [place] MD Unavailable [phone] Yasmeen Powers MD Unavailable [phone] Yasmeen Powers MD Unavailable [phone] Encounter Details Date Type Department Care Team (Late st Contact Info) Description 04/21/2016 [facility] Nephrology [address] [place] [address] Franco Burgess MD 717 [facility] [address] [place], [place] [address] Social History Tobacco Use Types Packs/Day Years [...] of this encounter Care Teams Director Of Testing Relationship Specialty Start Date End Date Rubén Boyle MD PCP - General Family Practice 03/08/16 Pamela Blanco NP Referring Physician Gastroenterology 03/08/16 07/12/16 Pamela Blanco NP [facility] [address] [place] [address] Referring Physician 07/13/16 Pedro Segura MD [facility] [address] [place] [address] Nephrology 10/03/16 Freddy Craft MD 516 [facility] [address] [place], [place] [address] Assigned Gastroenterology Provider 02/08/20 Abdifatah Van MD [address] [place] [address] 353 [place], [place] [address] Assigned Nephrology Provider 07/13/20 11/07/23 Nicole Carranza NP 420 [facility] 508 [place], [place] [address] Assigned Heart and Vascular Provider 01/09/22 Andressa Ruiz PA-C 420 [facility] [address] [place] [address]64[address] Physician Supervisor Pumping Station Endocrinology, Diabetes, and Metabolism 03/01/22 Ashlyn Storm RN [facility] 711 [place], [place] 713624 Registered Nurse 03/03/22 09/15/22 Rubén Gunter [facility] [address] [place] [address] 429685 Assigned MTM Pharmacist 02/27/22 09/07/23 Andressa Ruiz PA-C [address] 973875 Assigned Endocrinology Provider 03/13/22 09/07/23 Suzan [place] MD 420 [place], [place] 7[address]85 Nephrology 06/30/23 Yasmeen Powers MD [address] [place] [address]3455 Nephrology 10/24/23 Yasmeen Powers MD 500 [place], [place] 925445 Assigned Nephrology Provider 11/08/23 documented as of this encounter
--- OUTSIDE RECORDS SUMMARY | 2024-01-26 22:35 | XMS_ITS ---
Author Organization [facility] Address [address] [place] [address] Care Team Providers Care Mission Worker Name Role Phone Unavailable Unavailable Unavailable Surgery Details Not on file Complications Check Surgery Details section. Procedure Estimated Blood Loss Check Surgery Details section. Procedure Findings Check Surgery Details section. Procedure Specimens Taken Check Surgery Details section.
--- OUTSIDE RECORDS SUMMARY | 2024-01-26 22:35 | XMS_ITS | Referral Summary ---
Author Organization [facility] Address [address] [place] [address] Care Team Providers Care Industrial Hygiene Manager Name Role Phone Elsewhere, Pcp Primary Care Provider Unavailabl e Source Comments Patient records contain information from all sites at [facility]. For routine questions regarding patient records, call [phone] during business hours, M-F 8:00 AM - 5:00 PM Central Time. Record requests for emergency care only can be directed to [phone] at any time.[facility] Allergies Active Allergy Reactions Criticality Noted Date [...] Gastroesophageal Reflux Disease Without Esophagi tis 01/26/2016 Enrichment Teacher Use Of Insulin Active 12/29/2015 Hyperlipidemia 05/09/2015 [...] Romero APRN, C.N.P. LAB BLOOD A DD-ON [facility] [address] [place] [address], [facility] NPR[facility] [place] [address] [place] [address] * (ABNORMAL) Hemoglobin A1c (12/14/2022 7:57 AM [...] Romero APRN, C.N.P. LAB BLOOD A DD-ON [facility] [address] [place] [address], [facility] [place] [address] [place] [address] from Last 3 Months or Most Recently Relevant to Health Maintenance Advance Directives For more information, please contact: [phone] Documents on File Type Date Recorded Patient Awnings Mechanic Expl anation Advance Directives 12/06/2022 12:[address] Care Teams Industrial Hygiene Manager Relationship Specialty Start Date End Date Elsewhere, Pcp PCP - General Internal Medicine 01/06/23
--- OUTSIDE RECORDS SUMMARY | 2024-01-26 22:35 | XMS_ITS | Encounter Summary ---
Author Organization [facility] Address [address] [place] [address] Care Team Providers Care Candy Maker Name Role Phone Rubén Boyle MD Primary Care Provider [phone] Pamela Blanco ARNP Unavailable Pedro Segura MD Unavailable Freddy Craft MD Unavailable Abdifatah Van MD Unavailable Nicole Carranza ARNP Unavailable [phone] Andressa Ruiz-C Unavailable Ashlyn Storm RN Unavailable [phone] Rubén Gunter [facility] Unavailable Andressa Ruiz-C Unavailable Suzan Harry MD Unavailable [phone] Yasmeen Powers MD Unavailable Yasmeen Powers MD Unavailable [phone] Encounter Details Date Type Department Care Team (Late st Contact Info) Description 08/24/2016 External Order Results [facility] [address] [place] [address] Social History Tobacco Use Types [...] External Lab Result (08/13/2016 9:40 AM CDT) [facility] Tacrolimus(FK-5 06) (External) 6.8(L) 12 - 15 [...] documented as of this encounter Care Teams Candy Maker Relationship Specialty Start Date End Date Rubén Boyle MD PCP - General Family Practice 03/08/16 Pamela Blanco NP [facility] [address] [place], [place] [address] Referring Physician 07/13/16 Pedro eSgura MD [facility] [address] [place], [place] [address] Nephrology 10/03/16 Freddy Craft MD 516 [facility] [address] [place] [address] Assigned Gastroenterology Provider 02/08/20 Abdifatah Van MD [address] [place] [address] Assigned Nephrology Provider 07/13/20 11/07/23 Nicole Carranza NP [address] [facility] [address] [place], [place] [address] Assigned Heart and Vascular Provider 01/09/22 Andressa Ruiz PA-C [address] [facility] [address] [place], [place] [address] Physician Gas Inspector Endocrinology, Diabetes, and Metabolism 03/01/22 Ashlyn Storm, RN [facility] 711 [place] [address] Registered Nurse 03/03/22 09/15/22 Rubén Gunter [facility] 909 [place] [address] Assigned MTM Pharmacist 02/27/22 Andressa Ruiz PA-C 420 [facility] 803 [place], [place] [address] Assigned Endocrinology Provider 03/13/22 09/07/23 Suzan [place] MD 420 [place], [place] 9[address] Nephrology 06/30/23 Yasmeen Powers MD 500 [place], [place] 39[address]85 Nephrology 10/24/23 Yasmeen Powers MD 500 [place], [place] [address] Assigned Nephrology Provider 11/08/23 documented as of this encounter
--- OUTSIDE RECORDS SUMMARY | 2024-01-26 22:35 | XMS_ITS | Encounter Summary ---
Author Organization [facility] Address [address] [place] [address] Care Team Providers Care Loader Helper Name Role Phone Rubén Boyle MD Primary Care Provider Pamela Blanco MATERIAL HANDLER 2ND SHIFT Unavailable [phone] Pedro Segura MD Unavailable [phone] Freddy Craft MD Unavailable [phone] Abdifatah Van MD Unavailable Nicole Carranza MATERIAL HANDLER 2ND SHIFT Unavailable [phone] Andressa Ruiz-C Unavailable Ashlyn Storm RN Unavailable Rubén Gunter [facility] Unavailable Andressa Ruiz-C Unavailable Suzan Harry MD Unavailable [phone] Yasmeen Powers MD Unavailable Yasmeen Powers MD Unavailable [phone] Encounter Details Date Type Department Care Team [...] documented as of this encounter Care Teams Loader Helper Relationship Specialty Start Date End Date Rubén Byole MD PCP - General Family Practice 03/08/16 Pamela Blanco NP [facility] [address] [place], [place] [address] Referring Physician 07/13/16 Pedro Segura MD [facility] [address] [place] [address] Nephrology 10/03/16 Freddy Craft MD 516 [facility] [address] [place] [address] Assigned Gastroenterology Provider 02/08/20 Abdifatah Van MD [address] [place] [address] Assigned Nephrology Provider 07/13/20 11/07/23 Nicole Carranza NP 420 [facility] [address] [facility] [address] [place], [place] [address] Assigned Heart and Vascular Provider 01/09/22 Andressa Ruiz PA-C 420 [facility] 803 [place] [address] Physician Tin Roller Hot Mill Endocrinology, Diabetes, and Metabolism 03/01/22 Ashlyn Storm, RN [facility] 711 [place] [address] Registered Nurse 03/03/22 09/15/22 Rubén Gunter [facility] [address] [place] [address] Assigned MTM Pharmacist 02/27/22 Andressa Ruiz PA-C 420 [facility] 803 [place] [address] Assigned Endocrinology Provider 03/13/22 09/07/23 Suzan Harry MD 420 [place] [address] Nephrology 06/30/23 Yasmeen Powers MD 500 [place] [address] Nephrology 10/24/23 Yasmeen Powers MD 500 [place] [address] Assigned Nephrology Provider 11/08/23 documented as of this encounter
--- OUTSIDE RECORDS SUMMARY | 2024-01-26 22:35 | XMS_ITS | Clinical Summary ---
Author Organization [employer] [facility] [employer] [facility] Address [place], [place] [address] Care Team Providers Care Health And Safety Instructor Name Role Phone Nikole Gibbs Trisha RN Unavailable [phone] Rubén Boyle MD Primary Care Provider + Allergies Active Allergy Reactions Criticality Noted Date Comments Phytonadione (Vitamin K1) Tremors 01/17/2017 Medications Medication Sig Dispensed Refills Start Date End Date Status glucagon (GLUCAGON EMERGENCY) 1 mg injectionIndicat ions:Type 2 diabetes, HbA1C goal < 8% (HC) 1 mg one time if needed for Blood Gluc < Specify (to use for hypoglycemia emergency) for up to 1 dose. 1 Each 2 4 01/23/20 24 Discontinued(P harmacist change per medication history (E-cancel not sent)) MISCELLANEOUS MEDICAL SUPPLY (GRADUATED COMPRESSION STOCKINGS)Indica tions:Bilateral lower extremity edema For personal use. Length: thigh Strength: 20-30 mmHg 2 Packet 6 01/23/20 24 Discontinued(P harmacist change per medication history (E-cancel not sent)) aspirin (ECOTRIN) 81 mg enteric coated tabletIndication s:S/P liver transplant (HC) Take 1 tablet by mouth once daily with a meal. 0 7 Suspended Additional Information azaTHIOprine (IMURAN) 50 mg tablet Take 150 mg by mouth once daily. 7 Suspended TAB-A-JOLENE tabletIndication s:S/P liver transplant (HC) TAKE ONE TABLET BY MOUTH ONCE DAILY 90 tablet 0 01/23/20 24 Discontinued(P harmacist change per medication history (E-cancel not sent)) atorvastatin (LIPITOR) 20 mg tablet Take 1 Tablet by mouth at bedtime. 2 Suspended ferrous sulfate 325 mg delayed release tablet Take 325 mg by mouth once daily. 2 01/23/20 24 Discontinued(P harmacist change per medication history (E-cancel not sent)) cholecalciferol, Vitamin D3, (Vitamin D-3) 2,000 unit tablet Take 2,000 units by mouth once daily. Suspended furosemide (LASIX) 20 mg tablet Take 20 mg by mouth once daily in the morning. Suspended gabapentin (NEURONTIN) 300 mg capsule Take 300 mg by mouth two times daily. Suspended tacrolimus (PROGRAF) 1 mg capsule Take 2 mg by mouth in the morning and 3 mg in the evening Suspended glipiZIDE (GLUCOTROL) 5 mg tablet Take 5 mg by mouth once daily before a meal. Suspended omeprazole (PRILOSEC) 20 mg Delayed-Release capsuleIndicatio ns:Gastroesophag eal reflux disease without esophagitis Take 2 Capsules (40 mg) by mouth two times daily before meals. 90 Capsule 4 01/23/20 24 Discontinued(P harmacist change per medication history (E-cancel not sent)) sodium bicarbonate 650 mg tabletIndication s:Kidney transplant recipient Take 2 Tablets (1,300 mg) by mouth two times daily. 60 Tablet 4 01/23/20 24 Discontinued(P harmacist change per medication history (E-cancel not sent)) citalopram (CELEXA) 20 mg tabletIndication s:Moderate single current episode of major depressive disorder (HC) Take 1 Tablet (20 mg) by mouth once daily. 30 Tablet 4 Suspended Additional Information magnesium oxide (MAG-OX 400) 400 mg tabletIndication s:Hypomagnesemia Take 1 Tablet (400 mg) by mouth once daily. 30 Tablet 4 Suspended Additional Information omeprazole (PRILOSEC) 20 mg Delayed-Release capsule Take 20 mg by mouth two times daily before meals. Suspended famotidine (PEPCID) 40 mg tablet Take 40 mg by mouth at bedtime. Suspended tamsulosin (FLOMAX) 0.4 mg capsule Take 0.4 mg by mouth at bedtime. 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 Uses Osage 7.5 mg - roughly 3 per day Controlled substance agreement signed 05/07/2015 Colon polyps 05/10/2013 Resolved Problems Problem Noted Date Diagnosed Date Resolved Date Hepatorenal syndrome 04/29/2016 017 Oliguria 04/28/2016 08/15/2016 Alcoholic cirrhosis 03/17/2016 04/28/19 17 Injury of kidney 02/04/2016 04/28/2016 Encephalopathy, hepatic 02/03/2016 04/ Decreased platelet count 02/03/201602/2017 Hepatic encephalopathy 01/26/201608/15 [...] Please direct questions to Care Guide Edilma Aria Recinos Phone number [phone] Type 2 diabetes, HbA1C goal < 8% [...] Encounters Date Type Department Care Team Description 01/24/2024 Travel 01/23/2024 2:01 AM CDT - Present Hospital Encounter [facility] [address] [place] [address] [facility] [place] Pineda Austin MD Heyboer, Sonali Hawkins MD Emphysematous pyelonephritis (Primary Dx); ROSANA (acute kidney injury) (HC) 12/16/2023 Lab Requisition [facility] [phone] Cherelle Roman MD 12/16/2023 Lab Requisition [facility] [phone] Cherelle Roman MD from Last 3 Months Immunizations Name Administration Dates Next Due AMB Influenza, IIV3 (Age >=3 years)(Flu Clinic Only) 02/03/2013,01/27/2011,02/06/2008 AMB Influenza, IIV4 PF (=>6 mos Flulaval,Fluzone Fluarix)(Flu Clinic Only) 01/09/2014 Amb Influenza, Inact (High-d ose) (Flu Clinic Only) 01/24/2016 INFLUENZA, IIV3 PF (AGE >= 6 MO) 01/27/2011 Influenza Virus, Unspecified 02/03/2013, 01/14/2012,01/27/2011,2009,01/14/2009,02/06/2008,02/27/2007,1 05/03/2004,03/03/2005,02/24/2004, 004,02/13/2003,02/13/2003 Influenza, High-dose Inactivated 02/05/2020,02/17 Influenza, High-dose Quadriv alent Inactivated 04/05/2023 Influenza, IIV3 (Age >=3 years) 01/26/20 17,01/14/2012,02/04/2010,2008,02/27/2007,02/16/2006 Influenza, IIV4 12/14/2016,01/24/2016,01/06/2015 Influenza, IIV4 (=>6mos) MDV 01/24/2016 Influenza, Inactivated AIIV4 (Age 65+ Years) Preserv Free 01/12/2022,01/12/2021 Influenza, Inactivated IIV3 (Age 65+ Years) Preserv Free 01/05/2024,01/10/2018 Pneumococcal Poly,23-Valent (Pneumovax) 07/24/2010 Pneumococcal conj 13-Valent (Prevnar 13) 01/10/2018 Tdap [...] Sign Reading Time Taken Comments Blood Pressure 174/97 01/26/2024 9:17 PM CDT Pulse 89 01/26/2024 8:00 PM CDT Temperature 36.5 ??C (97.7 ??F) 01/26/2024 8:00 PM CD T Respiratory Rate 16 01/26/2024 8:00 PM CDT Oxygen Saturation 95% 01/26/2024 8:00 PM CDT Inhaled Oxygen Concentration - - Weight 97.3 kg (214 lb 8.1 oz) 01/26/2024 6:00 A M CDT Height 182.9 cm (6' 0.01) 01/23/2024 2:20 AM CD T Body Mass Index 29.09 01/23/2024 2:20 AM CDT Plan of Treatment Upcoming Encounters Date Type Department Care Team (Late st Contact Info) Description 02/08/2024 3:30 PM CDT Office Visit [facility] [address] [address] Ernestine Levy MD [address] [facility] [address] [place], [place] [id number] Health Maintenance Due Date Last Done Comments Hepatitis C screening for ag e 18-79 1970 Zoster (shingles) series for age 50+ (2 of 2) 09/26/2017 08/01/2017 Pneumococcal series for age 65+ (3 of 3 - PPSV23 or PCV20) 03/07/2018 01/10/2018, 07/24/2010 Colonoscopy through age 75 09/20/201809/20, 09/20/2013, 04/07/2009, Additional history exists Medicare Wellness for age 65+ 11/22/2018 11/21/2017 BMI (ht and wt on same day) for age 18+ 04/19/2019 04/19/2018, 01/16/2018, 01/10/2018, Additional history exists Tetanus booster 11/11/2020 11/11/2010 (Comp leted outside of [facility]), 07/31/2010 Depression screening for age 12+ 03/29/2023 03/29/2022, 03/26/2022, 04/19/2018, Additional history exists COVID-19 vaccine series ( season) 2024 01/05/2024, 05/31/2023, 09/17/2021, Additional history exists Lipids for age 45-75 03/19/2024 03/19/2019, 03/16/2018, 09/20/2016, Additional history exists Tdap Completed 07/31/2010 AAA screening age 65-74 Completed 06/24/2022, 01/06 Influenza for age 65+ Completed 01/05/2024 , 04/05/2023, 01/12/2022, Additional history exists Procedures The patient is currently admitted. The information in this section might not be complete until the patient is discharged. Procedure Name Priority Date/Time Associated Diagnosis Comments GLUCOSE METER Timed 01/26/2024 9:08 PM CDT GLUCOSE METER Timed 01/26/2024 5:22 PM CDT SCAN-CARDIAC STRIP 01/26/2024 4: 09 PM CDT GLUCOSE METER Timed 01/26/2024 11:46 AM CDT SCAN-CARDIAC STRIP 01/26/2024 10 :21 AM CDT RED CELL MORPHOLOGY MIKE 01/26/2024 6 :58 AM CDT PLATELET ESTIMATE MIKE 01/26/2024 6:5 8 AM CDT MANUAL DIFFERENTIAL MIKE 01/26/2024 6 :58 AM CDT DIFFERENTIAL MIKE 01/26/2024 6:58 AM CDT MAGNESIUM MIKE 01/26/2024 6:58 AM CDT CBC W PLT NO DIFF MIKE 01/26/2024 6:5 8 AM CDT TACROLIMUS (UMN) TACR Early AM 01/26/2024 6:58 AM CDT BASIC METABOLIC PANEL Early AM 01/26/2024 6:58 AM CDT GLUCOSE METER Timed 01/26/2024 6:09 AM CDT SCAN-CARDIAC STRIP 01/26/2024 4: 00 AM CDT GLUCOSE METER Timed 01/25/2024 9:48 PM CDT GLUCOSE METER Timed 01/25/2024 4:59 PM CDT BETA HYDROXYBUTYRATE IN HOUSE Today 01/25/2024 11:55 AM CDT GLUCOSE METER Timed 01/25/2024 11:18 AM CDT BLOOD GAS,VENOUS Today 01/25/2024 10:2 7 AM CDT LACTATE VENOUS Today 01/25/2024 10:27 AM CDT TACROLIMUS (UMN) TACR Early AM 01/25/2024 10:27 AM CDT SCAN-CARDIAC STRIP 01/25/2024 7: 58 AM CDT GLUCOSE METER Timed 01/25/2024 7:14 AM CDT BASIC METABOLIC PANEL Early AM 01/25/2024 6:43 AM CDT SCAN-CARDIAC STRIP 01/25/2024 1: 59 AM CDT SCAN-CARDIAC STRIP 01/25/2024 1: 59 AM CDT GLUCOSE METER Timed 01/24/2024 9:29 PM CDT GLUCOSE METER Timed 01/24/2024 5:[address] HEAD BRAIN WO Routine 01/24/2024 3:32 PM CDT GLUCOSE METER Timed 01/24/2024 11:57 AM CDT SCAN-CARDIAC STRIP 01/24/2024 8: 33 AM CDT BASIC METABOLIC PANEL Early AM 01/24/2024 8:26 AM CDT GLUCOSE METER Timed 01/24/2024 7:59 AM CDT SCAN-CARDIAC STRIP 01/24/2024 2: 59 AM CDT GLUCOSE METER Timed 01/23/2024 9:33 PM CDT GLUCOSE METER Timed 01/23/2024 6:28 PM CDT US RENAL TRANSPLANT Routine 01/23/2024 5 :58 PM CDT SCAN-CARDIAC STRIP 01/23/2024 4: 34 PM CDT SCAN CORRESP-EKG RESULTS 01/23/2024 4:33 PM CDT SCAN CORRESP-LABORATORY RESULTS 01/23/2024 4:33 PM CDT SCAN CORRESP-IMAGING 01/23/2024 4:33 PM CDT GLUCOSE METER Timed 01/23/2024 12:34 PM CDT SCAN-CARDIAC STRIP 01/23/2024 11 :44 AM CDT AMMONIA Today 01/23/2024 10:20 AM CDT GLUCOSE METER Timed 01/23/2024 8:43 AM CDT HEMOGLOBIN A1C MIKE 01/23/2024 8:13 AM CDT HEPATIC FUNCTION PANEL Early AM 8:13 AM CDT BASIC METABOLIC PANEL Early AM 01/23/2024 8:13 AM CDT CBC W PLT NO DIFF Early AM 01/23/2024 8:1 3 AM CDT SCAN-CARDIAC STRIP 01/23/2024 5: 47 AM CDT GLUCOSE METER Timed 01/23/2024 3:56 AM CDT URINALYSIS [facility] 2:59 AM CDT UA W/ SEDIMENT EXAM REFLEXED PER CRITERIA [facility] 01/23/2024 2:59 AM CDT URINE CULTURE Today 01/23/2024 2:59 AM CDT LAB TRACKING EVENT Routine 12/15/2023 10 :46 AM CDT PATH TISSUE EXAM Routine 12/15/2023 10:[address] ABDOMEN PELVIS WO STAT 06/24/2022 2:30 PM INSPECTION CLERK LIPID PANEL Routine 03/19/2019 9:30 AM INSPECTION CLERK COLONOSCOPY SCREENING Routine 09/20/2013 Colon polyps from Last 3 Months or Most Recently Relevant to Health Maintenance Results * (ABNORMAL) GLUCOSE METER (01/26/2024 9:08 PM CDT) Only the most recent of17 resultswithin the time period is included. GLUCOSE METER 151(H) 65 - 100 mg/dL 01/26/2024 9:18 PM CDT [facility] Blood BLOOD SPECIMEN / Unknown 01/26/2024 9:08 PM CDT 01/26/2024 9:18 PM CDT Sonali Doe MD CHEMISTRY Performing Organization Address [facility] Co de Phone Number [facility] [address] [place] [id number], [place] * SCAN-CARDIAC STRIP (01/26/2024 4:09 PM CDT) Scanner OTHER * SCAN-CARDIAC STRIP (01/26/2024 10:21 AM CDT) Scanner OTHER * (ABNORMAL) RED CELL MORPHOLOGY (01/26/2024 6:58 AM CDT) [facility] ELLIPTOCYTES Few 01/26/2024 5:01 PM CDT [facility] TEARDROP CELLS Few 01/26/2024 5:01 PM CDT [facility] RBC COMMENT Present(A ) RBC morphology appears normal, RBC morphology within normal limits for newborns. 01/26/2024 5:01 PM CDT [facility] Blood BLOOD SPECIMEN / Unknown Venipuncture / Unknown 01/26/2024 6:58 AM CDT 01/26/2024 7:09 AM CDT Narrative [facility] - 01/26/2024 5:01 PM CDT WBC MUST ALSO BE ORDERED, [id number] Sonali Doe MD HEMATOLOGY Performing Organization Address City/[facility]/ZIP Co de Phone Number [facility] [address] [place] [address], [place] * (ABNORMAL) PLATELET ESTIMATE (01/26/2024 6:58 AM CDT) PLATELET ESTIMATE Decreased (A) Adequate, No estimate 01/26/2024 5:01 PM CDT [facility] Blood BLOOD SPECIMEN / Unknown Venipuncture / Unknown 01/26/2024 6:58 AM CDT 01/26/2024 7:09 AM CDT [facility] - 01/26/2024 5:01 PM CDT WBC MUST ALSO BE ORDERED, [id number] Sonali Doe MD HEMATOLOGY [facility] [address] [place] [address], * (ABNORMAL) MANUAL DIFFERENTIAL (01/26/2024 6:58 AM CDT) % NEUTROPHILS 47.0 % 01/26/2024 5:01 PM CDT [facility] % LYMPHOCYTES 42.0 % 01/26/2024 5:01 PM CDT [facility] % MONOCYTES 9.0 % 01/26/2024 5:01 PM CDT [facility] % EOSINOPHILS 1.0 % 01/26/2024 5:01 PM CDT [facility] % BASOPHILS 1.0 % 01/26/2024 5:01 PM CDT [facility] NEUTROPHILS ABSOLUTE 0.8(L) 1.7 - 7.0 thou/cu mm 01/26/2024 5:01 PM CDT [facility] LYMPHOCYTES ABSOLUTE 0.7(L) 0.9 - 2.9 thou/cu mm 01/26/2024 5:01 PM CDT [facility] MONOCYTES ABSOLUTE 0.2 <0.9 thou/cu mm 01/26/2024 5:01 PM CDT [facility] EOSINOPHILS ABSOLUTE 0.0 <0.5 thou/cu mm 01/26/2024 5:01 PM CDT [facility] BASOPHILS ABSOLUTE 0.0 <0.3 thou/cu mm 01/26/2024 5:01 PM CDT [facility] Blood BLOOD SPECIMEN / Unknown Venipuncture / Unknown 01/26/2024 6:58 AM CDT 01/26/2024 7:09 AM CDT Narrative [facility] - 01/26/2024 5:01 PM CDT WBC MUST ALSO BE ORDERED, [id number] Sonali Doe MD HEMATOLOGY [facility] [address] [place] [address], * (ABNORMAL) CBC no diff AM (01/26/2024 6:58 AM CDT) Only the most recent of2 resultswithin the time period is included. WHITE BLOOD COUNT 1.7(L) 4.5 - 11.0 thou/cu mm 01/26/2024 2:08 PM CDT [facility] RED BLOOD COUNT 3.07(L) 4.30 - 5.90 mil/cu mm 01/26/2024 2:08 PM CDT [facility] HEMOGLOBIN 9.9(L) 13.5 - 17.5 g/dL 01/26/2024 2:08 PM CDT [facility] HEMATOCRIT 27.9(L) 37.0 - 53.0 % 01/26/2024 2:08 PM CDT [facility] MCV 91 80 - 100 fL 01/26/2024 2:08 PM CDT [facility] MCH 32.2 26.0 - 34.0 pg 01/26/2024 2:08 PM CDT [facility] MCHC 35.5 32.0 - 36.0 g/dL 01/26/2024 2:08 PM CDT [facility] RDW 14.0 11.5 - 15.5 % 01/26/2024 2:08 PM CDT [facility] PLATELET COUNT 134(L) 140 - 440 thou/cu mm 01/26/2024 2:08 PM CDT [facility] MPV 11.2(H) 6.5 - 11.0 fL 01/26/2024 2:08 PM CDT [facility] NRBC 0.0 % 01/26/2024 2:08 PM CDT [facility] ABS NRBC 0.0 thou /cu mm 01/26/2024 2:08 PM CDT [facility] Blood BLOOD SPECIMEN / Unknown Venipuncture / Unknown 01/26/2024 6:58 AM CDT 01/26/2024 7:09 AM CDT Sonali Doe MD HEMATOLOGY Performing Organization Address City/[facility]/ZIP Co de Phone Number [facility] [address] [address], [place] * DIFFERENTIAL (01/26/2024 6:58 AM CDT) Blood BLOOD SPECIMEN / Unknown Venipuncture / Unknown 01/26/2024 6:58 AM CDT 01/26/2024 7:09 AM CDT Narrative [facility] - 01/26/2024 5:01 PM CDT WBC MUST ALSO BE ORDERED, [id number] Sonali Doe MD HEMATOLOGY Performing Organization Address City/[facility]/ZIP Co de Phone Number [facility] [address] [address], [place] * (ABNORMAL) Magnesium FOR ADD ON (01/26/2024 6:58 AM CDT) MAGNESIUM 1.2(L) 1.6 - 2.4 mg/dL 01/26/2024 2:03 PM CDT [facility] Blood BLOOD SPECIMEN / Unknown Venipuncture / Unknown 01/26/2024 6:58 AM CDT 01/26/2024 7:09 AM CDT Sonali Doe MD CHEMISTRY [facility] [address] [place] [id number], * TACROLIMUS (01/26/2024 6:58 AM CDT) Only the most recent of2 resultswithin the time period is included. TACROLIMUS 19.1 ng/mL 01/26/2024 10:30 AM CDT [facility] DATE OF LAST DOSE,TACROLIMUS Not given 01/26/2024 10:30 AM CDT [facility] TIME OF LAST DOSE,TACROLIMUS Not given 01/26/2024 10:30 AM CDT [facility] Blood BLOOD SPECIMEN / Unknown Venipuncture / Unknown 01/26/2024 6:58 AM CDT 01/26/2024 7:09 AM CDT Narrative [facility] - 01/26/2024 10:30 AM CDT Target blood levels in Heart [...] method platform is the Abby Immunoassay analyzer. Evangelist Dee MD SEND OUTS [facility] [address] [place] [address], [place] * (ABNORMAL) BASIC METABOLIC PANEL (01/26/2024 6:58 AM CDT) Only the most recent of4 resultswithin the time period is included. SODIUM 136 136 - 145 mmol/L 01/26/2024 8:03 AM CDT [facility] POTASSIUM 4.4 3.5 - 5.1 mmol/L 01/26/2024 8:03 AM T [facility] CHLORIDE 101 98 - 107 mmol/L 01/26/2024 8:03 AM [facility] CO2,TOTAL 22 22 - 29 mmol/L 01/26/2024 8:03 AM T [facility] ANION GAP 13 5 - 18 01/26/2024 8:03 AM T [facility] GLUCOSE 170(H) 70 - 99 mg/dL 01/26/2024 8:03 AM T [facility] CALCIUM 8.4(L) 8.8 - 10.2 mg/dL 01/26/2024 8:03 AM [facility] BUN 28(H) 8 - 23 mg/dL 01/26/2024 8:03 AM T [facility] CREATININE 1.62(H) 0.70 - 1.20 mg/dL 01/26/2024 8:03 AM [facility] BUN/CREAT RATIO 17 10 - 20 8:03 AM T [facility] eGFR 45(L) >90 mL/min/1.7 3m2 01/26/2024 8:03 AM [facility] Comment:As of 2021, eG FR is calculated by the CKD-EPI creatinine equation without race adjustment. ??eGFR can be influenced by muscle mass, exercise, and diet. ??The reported eGFR is an estimation only and is only applicable if the renal function is stable. Blood BLOOD SPECIMEN / Unknown Venipuncture / Unknown 01/26/2024 6:58 AM CDT 01/26/2024 7:09 AM CDT Allen Cordoba MD CHEMISTRY Performing Organization Address [facility] Co sc Phone Number [facility] [address] [place] [address], * SCAN-CARDIAC STRIP (01/26/2024 4:00 AM CDT) Scanner OTHER * (ABNORMAL) BETA HYDROXYBUTYRATE IN HOUSE (01/25/2024 11:55 AM CDT) BETA HYDROXYBUTYRATE 1.2(H) <0.6 mmol/L 01/25/2024 12:14 PM CDT [facility] Blood BLOOD SPECIMEN / Unknown Butterfly / Unknown 01/25/2024 11:55 AM CDT 01/25/2024 12:02 PM CDT Evangelist Dee MD SEND OUTS Performing Organization Address [facility] Phone Number [facility] [address] [place] [address], * LACTATE VENOUS (01/25/2024 10:27 AM CDT) LACTATE,VENOUS 0.9 0.5 - 2.0 mmol/L 01/25/2024 11:13 AM CDT [facility] Blood BLOOD SPECIMEN / Unknown Butterfly / Unknown 01/25/2024 10:27 AM CDT 01/25/2024 10:32 AM CDT Sonali Doe MD CHEMISTRY Performing Organization Address [facility] Co de Phone Number [facility] [address] [place] [address], * (ABNORMAL) BLOOD GAS,VENOUS (01/25/2024 10:27 AM CDT) PH, VENOUS 7.39 7.32 - 7.43 01/25/2024 10:36 AM CDT [facility] PCO2, VENOUS 38(L) 41 - 51 mmHg 01/25/2024 10:36 AM CDT [facility] PO2, VENOUS 39 35 - 40 mmHg 01/25/2024 10:36 AM CDT [facility] HCO3,VENOUS 23 22 - 29 mmol/L 01/25/2024 10:36 AM CDT [facility] BASE EXCESS, VENOUS, POCT -1.7 -2.0 - 3.0 01/25/2024 10:36 AM CDT [facility] O2 SATURATION, VENOUS 73 70 - 75 % 01/25/2024 10:36 AM CDT [facility] PATIENT TEMPERATURE 37.0 Degrees C 01/25/2024 10:36 AM CDT [facility] Blood VENOUS BLOOD SPECIMEN / Unknown Butterfly / Unknown 01/25/2024 10:27 AM CDT 01/25/2024 10:32 AM CDT Sonali Doe MD CHEMISTRY [facility] [address] [place] [address], * SCAN-CARDIAC STRIP (01/25/2024 7:58 AM CDT) Scanner OTHER * SCAN-CARDIAC STRIP (01/25/2024 1:59 AM CDT) Scanner OTHER * SCAN-CARDIAC STRIP (01/25/2024 1:59 AM CDT) Scanner OTHER * CT HEAD BRAIN WO (01/24/2024 3:32 PM CDT) Anatomical Region Laterality Modality HEAD, BRAIN Computed Tomogra phy 01/24/2024 3:59 PM CDT Narrative 01/24/2024 3:59 PM CDT For Patients: ??As a result of the Cures Act, medical imaging exams and procedure reports are released immediately into your electronic medical record. ??You may view this report before your referring provider. ??If you have questions, please contact your health care provider. Indication : Mental status change. Technique : CT of the brain without intravenous contrast. Comparison: None relevant available at the time of interpretation. Findings: No acute blurring of the phoenix-white differentiation. There is no intracranial hemorrhage. The ventricles are proportionate to the cerebral sulci. The 4th ventricle is midline. Basal cisterns appear patent. No abnormal extra-axial fluid collection identified. Mild parenchymal volume loss. There is moderate patchy periventricular hypodensity, favored to represent chronic ischemic microvascular disease. Small chronic infarct right caudate head. There is no intracranial mass, mass effect or midline shift identified. No depressed calvarial fracture. Impression: 1. No acute intracranial process. 2. [id number] chronic ischemic microvascular disease. 3. Small chronic infarct right caudate head. Please note that all CT scans at this facility use dose modulation, iterative reconstruction, and/or weight-based dosing when appropriate to reduce radiation dose to as low as reasonably achievable. Dictated by Adriano Campbell MD @ 01/24/2024 3:59:33 PM (Electronically Signed) Procedure Note Adriano Campbell DO - 01/24/2024 For Patients: As a result of the Cures Act, medical imagingexams and procedure reports are released immediately into your electronicmedical record. You may view this report before your referring provider.If you have questions, please contact your health care provider. Indication : Mental status change. Technique : CT of the brain without intravenous contrast. Comparison: None relevant available at the time of interpretation. Findings: No acute blurring of the phoenix-white differentiation. There is nointracranial hemorrhage. The ventricles are proportionate to the cerebral sulci. The 4th ventricleis midline. Basal cisterns appear patent. No abnormal extra-axial fluidcollection identified. Mild parenchymal volume loss. There is moderate patchy periventricularhypodensity, favored to represent chronic ischemic microvascular disease.Small chronic infarct right caudate head. There is no intracranial mass, mass effect or midline shift identified. No depressed calvarial fracture. Impression: 1. No acute intracranial process. 2. Hzrz-ln-ocnmdyzs chronic ischemic microvascular disease. 3. Small chronic infarct right caudate head. Please note that all CT scans at this facility use dose modulation,iterative reconstruction, and/or weight-based dosing when appropriate toreduce radiation dose to as low as reasonably achievable. Dictated by Adriano Campbell MD @ 01/24/2024 3:59:33 PM (Electronically Signed) Sonali Doe MD CT * SCAN-CARDIAC STRIP (01/24/2024 8:33 AM CDT) Scanner OTHER * SCAN-CARDIAC STRIP (01/24/2024 2:59 AM CDT) Scanner OTHER * RENAL TRANSPLANT (01/23/2024 5:58 PM CDT) Anatomical Region Laterality Modality Abdomen, KIDNEYS Ultrasound 01/24/2024 6:19 AM CDT Impressions 01/24/2024 6:19 AM CDT 1. Abnormal parenchyma of the right lower quadrant renal transplant is suggestive of medical renal disease. 2. Dirty shadowing in the right upper pole collecting system is more suggestive of gas in the collecting system than a calculus. Could be due to recent urinary tract manipulation. Noncontrast CT pelvis would be definitive. Dictated by Emily Fragoso MD @ 01/24/2024 6:19:51 AM (Electronically Signed) Narrative 01/24/2024 6:19 AM CDT For Patients: ??As a result of the Century Cures Act, medical imaging exams and procedure reports are released immediately into your electronic medical record. ??You may view this report before your referring provider. ??If you have questions, please contact your health care provider. INDICATION: Renal failure COMPARISON: 06/26/2022, 06/24/2022 TECHNIQUE: Phoenix-scale, color Doppler, and duplex Doppler imaging of the renal transplant is performed, and resistive indices are calculated. ?? FINDINGS: The renal transplant in the right iliac fossa. Parenchyma: Diffusely increased renal echogenicity with corticomedullary differentiation. Parenchymal thickness 0.9 cm. Renal size: 7.5 x 4.3 x 5.6 cm, previously 7.1 x 6.4 x 3.5 cm Cyst: None. Mass: None. Calculi: 2.2 centimeter area of somewhat dirty shadowing in the upper pole is prominently gas in the collecting system. No definite urinary tract calculi. Urinary tract: Not dilated. The urinary bladder is normal. Procedure Note Emily Fragoso MD - 01/24/2024 For Patients: As a result of the Cures Act, medical imagingexams and procedure reports are released immediately into your electronicmedical record. You may view this report before your referring provider.If you have questions, please contact your health care provider. INDICATION: Renal failure COMPARISON: 06/26/2022, 06/24/2022 TECHNIQUE: Phoenix-scale, color Doppler, and duplex Doppler imaging of the renaltransplant is performed, and resistive indices are calculated. FINDINGS: The renal transplant in the right iliac fossa. Parenchyma: Diffusely increased renal echogenicity with corticomedullarydifferentiation. Parenchymal thickness 0.9 cm. Renal size: 7.5 x 4.3 x 5.6 cm, previously 7.1 x 6.4 x 3.5 cm Cyst: None. Mass: None. Calculi: 2.2 centimeter area of somewhat dirty shadowing in the upper poleis prominently gas in the collecting system. No definite urinary tractcalculi. Urinary tract: Not dilated. The urinary bladder is normal. IMPRESSION: 1. Abnormal parenchyma of the right lower quadrant renal transplant issuggestive of medical renal disease. 2. Dirty shadowing in the right upper pole collecting system is moresuggestive of gas in the collecting system than a calculus. Could be dueto recent urinary tract manipulation. Noncontrast CT pelvis would bedefinitive. Dictated by Emily Fragoso MD @ 01/24/2024 6:19:51 AM (Electronically Signed) Allen Cordoba MD [place] * SCAN-CARDIAC STRIP (01/23/2024 4:34 PM CDT) Scanner OTHER * SCAN CORRESP-LABORATORY RESULTS (01/23/2024 4:33 PM CDT) Narrative 01/23/2024 4:33 PM CDT Ordered by an unspecified provider. Other Clinical Staff OTHER * SCAN CORRESP-EKG RESULTS (01/23/2024 4:33 PM CDT) Narrative 01/23/2024 4:33 PM CDT Ordered by an unspecified provider. Other Clinical Staff OTHER * SCAN CORRESP-IMAGING (01/23/2024 4:33 PM CDT) Anatomical Region Laterality Modality Other Narrative 01/23/2024 4:33 PM CDT Ordered by an unspecified provider. Other Clinical Staff OTHER * SCAN-CARDIAC STRIP (01/23/2024 11:44 AM CDT) Scanner OTHER * AMMONIA (01/23/2024 10:20 AM CDT) [facility] AMMONIA 12 11 - 51 umol/L 01/23/2024 10:58 AM CDT [facility] Blood BLOOD SPECIMEN / Unknown Venipuncture / Unknown 01/23/2024 10:20 AM CDT 01/23/2024 10:29 AM CDT Narrative [facility] - 01/23/2024 10:58 AM CDT 1. ??Sulfasalazine and its metabolite Sulfapyridine at therapeutic concentrations may lead to falsely low results. 2. ??Temozolomide and its metabolite MTIC may lead to falsely elevated results, and its metabolite AIC may lead to falsely low results. Sonali Doe MD CHEMISTRY [facility] [address] [place] [place] [address], [place] * (ABNORMAL) Screening hemoglobin A1c FOR ADD ON (01/23/2024 8:13 AM CDT) Pathologist [facility] [place] HEMOGLOBIN A1C SCREENING 6.7(H) <=6.4 % 01/23/2024 3:39 PM CDT [facility] Blood BLOOD SPECIMEN / Unknown Venipuncture / Unknown 01/23/2024 8:13 AM CDT 01/23/2024 8:21 AM CDT Narrative [facility] - 01/23/2024 3:39 PM CDT ? (<5.7%) ?Normal ? (5.7% to 6.4%) ? Indicates prediabetes ? (>=6.5%) ? Confirms diabetes Falsely low levels may be seen with: Recent Transfusion, Recent Significant Blood Loss, Hemolytic Diseases, or Falsely elevated levels may be seen with: Untreated Anemias, Splenectomy Sonali oDe MD CHEMISTRY [facility] [address] [place] [address], * (ABNORMAL) HEPATIC FUNCTION PANEL (01/23/2024 8:13 AM CDT) [facility] ALBUMIN 3.4(L) 4.0 - 4.9 g/dL 01/23/2024 8:52 AM CDT [facility] PROTEIN,TOTAL 6.1 6.0 - 8.0 g/dL 01/23/2024 8:52 AM CDT [facility] BILIRUBIN,TOTAL 1.1 0.0 - 1.2 mg/dL 01/23/2024 8:52 AM CDT [facility] BILIRUBIN,DIRECT 0.6(H) 0.0 - 0.2 mg/dL 01/23/2024 8:52 AM CDT [facility] BILIRUBIN,INDIRE CT 0.5 0.2 - 0.8 mg/dL 01/23/2024 8:52 AM CDT [facility] ALK PHOSPHATASE 62 40 - 129 IU/L 01/23/2024 8:52 AM CDT [facility] ALT (SGPT) <5(L) 10 - 50 IU/L 01/23/2024 8:52 AM CDT [facility] AST (SGOT) 13 10 - 50 IU/L 01/23/2024 8:52 AM CDT [facility] Blood BLOOD SPECIMEN / Unknown Venipuncture / Unknown 01/23/2024 8:13 AM CDT 01/23/2024 8:21 AM CDT iPneda Austin MD CHEMISTRY [facility] [address] [place] [address], * SCAN-CARDIAC STRIP (01/23/2024 5:47 AM CDT) Scanner OTHER * (ABNORMAL) URINALYSIS MICROSCOPIC (01/23/2024 2:59 AM CDT) RBC 0-2 0-2, None Seen /HPF 01/23/2024 3:45 PM CDT [facility] WBC >100(A) 0-2, 3-5, None Seen /HPF 01/23/2024 3:45 PM CDT [facility] BACTERIA None Seen None Seen, Rare, Few Bacteria/ HPF 01/23/2024 3:45 PM CDT [facility] EPITHELIAL CELLS None Seen None Seen, Few Epi/HPF 01/23/2024 3:45 PM CDT [facility] WHITE CELL CLUMPS Present(A) (none) 01/23/2024 3:45 PM CDT [facility] HYALINE CASTS 11-25(A) 0-2, 3-5 /LPF 01/23/2024 3:45 PM CDT [facility] AMORPHOUS Present(A) (none) 01/23/2024 3:45 PM CDT [facility] Urine URINE SPECIMEN / Unknown Non-Blood / Unknown 01/23/2024 2:59 AM CDT 01/23/2024 3:18 AM CDT Sonali Doe MD URINE Performing Organization Address [facility] Co de Phone Number [facility] [address] [address], [place] * Urine culture - clean catch (01/23/2024 2:59 AM CDT) CULTURE No growth (<1,000 CFU/mL) 01/24/2024 9:22 AM CDT [facility] Urine URINE SPECIMEN / Unknown Non-Blood / Unknown 01/23/2024 2:59 AM CDT 01/23/2024 3:18 AM CDT Pineda Austin MD MICROBIOLOGY Performing Organization Address [facility] Co de Phone Number [facility] [address] [place] [address], [place] * (ABNORMAL) Urinalysis TODAY (01/23/2024 2:59 AM CDT) COLOR Yellow Yellow Color 01/23/2024 3:45 PM CDT [facility] CLARITY Turbid(A) Clear Clarity 01/23/2024 3:45 PM CDT [facility] SPECIFIC GRAVITY,URINE 1.020 1.010, 1.015, 1.020, 1.025 01/23/2024 3:45 PM CDT [facility] PH,URINE 5.0(A) 6.0, 7.0, 8.0, 5.5, 6.5, 7.5, 8.5 01/23/2024 3:45 PM CDT [facility] UROBILINOGEN, QUALITATIVE Normal Normal EU/dl 01/23/2024 3:45 PM CDT [facility] PROTEIN, URINE 30(A) Negative mg/dL 01/23/2024 3:45 PM CDT [facility] GLUCOSE, URINE >=1000(A) Negative mg/dL 01/23/2024 3:45 PM CDT [facility] KETONES,URINE 15(A) Negative mg/dL 01/23/2024 3:45 PM CDT [facility] BILIRUBIN,URI NE Negative Negative 01/23/2024 3:45 PM CDT [facility] OCCULT BLOOD,URINE Trace(A) Negative 01/23/2024 3:45 PM CDT [facility] NITRITE Negative Negative 01/23/2024 3:45 PM CDT [facility] LEUKOCYTE ESTERASE Moderate(A) Negative 01/23/2024 3:45 PM CDT [facility] Urine URINE SPECIMEN / Unknown Non-Blood / Unknown 01/23/2024 2:59 AM CDT 01/23/2024 3:18 AM CDT Sonali Doe MD URINE Performing Organization Address [facility] Co de Phone Number [facility] [address] [place] [address], * LAB TRACKING EVENT (12/15/2023 10:46 AM CDT) Other (Other) Client Collect / Unknown 12/15/2023 10:46 AM CDT 12/16/2023 12:35 AM CDT Cherelle Roman MD LAB BILL ONLY Performing Organization Address [facility] Co de Phone Number [facility] [address] [place] [address], * PATH TISSUE EXAM (12/15/2023 10:46 AM CDT) Case Report Pathology Report ?Case: [id number] ? Authorizing Provider: ??Cherelle Roman MD ?Collected: ? 12/15/2023 1046 ? Ordering Location: ? [facility] ?Received: ?12/16/2023 08 ? Pathologist: ? Ulysses Doherty ? IV, MD ? Specimens: ?? A) - Distal Esophagus Biopsy ? B) - Mid Esophagus Biopsy ? 12/20/2023 9:11 AM CDT [facility] Final Diagnosis A) ESOPHAGUS, DISTAL, BIOPSY: 1. Normal esophageal squamous mucosa 2. Negative for reflux changes and eosinophilic esophagitis 3. Negative for columnar mucosa B) ESOPHAGUS, MID, BIOPSY: 1. Normal esophageal squamous mucosa 2. Negative for reflux changes and eosinophilic esophagitis 3. Negative for columnar mucosa 12/20/2023 9:11 AM CDT [facility] Clinical Information Mr. Mora is a 73 y.o. who presents for follow-up of reflux esophagitis. EGD findings include: -Normal exam 12/20/2023 9:11 AM CDT [facility] Gross Description A) Received in formalin [...] the patient's name and designated midesophagus. Sera Henderson 12/16/2023 11:20 AM 12/20/2023 9:11 AM CDT [facility] Microscopic Description The final diagnosis is based on microscopic examination of appropriate sections of all specimens. 12/20/2023 9:11 AM CDT [facility] Additional Information Interpreted at [facility] - [address] [facility] [address], [place] [address] 12/20/2023 9:11 AM CDT [facility] Other (Distal Esophagus Biopsy) 12/15/2023 10:46 AM CDT 12/16/2023 8:21 AM CDT Specimen (specimen) (Mid Esophagus Biopsy) 12/15/2023 10:46 AM CDT 12/16/2023 8:21 AM CDT Cherelle Roman MD PATHOLOGY/CYTOLOGY [facility] [address] [place] [address], * CT ABDOMEN PELVIS WO (06/24/2022 2:30 PM INSPECTION CLERK) Anatomical Region Laterality Modality Abdomen, Pelvis, AORTA, LIVER, SPLEEN Computed Tomography 06/24/2022 3:18 PM INSPECTION CLERK Narrative 06/24/2022 3:18 PM INSPECTION CLERK For Patients: ??As a result of the [...] For Patients: As a result of the Cures Act, medical imagingexams and procedure reports [...] 06/24/2022 3:18:29 PM (Electronically Signed) Debi Alcantar WALLPAPER CLEANER CT * (ABNORMAL) LIPID PANEL (03/19/2019 9:30 AM INSPECTION CLERK) [facility] CHOLESTEROL,TOTAL 179 100 - 199 mg/dL 03/19/2019 9:59 AM INSPECTION CLERK [facility] TRIGLYCERIDES 195(H) <150 mg/dL 03/19/2019 9:59 AM INSPECTION CLERK [facility] HDL CHOLESTEROL 43 >40 mg/dL 9 9:59 AM INSPECTION CLERK [facility] NON-HDL CHOLESTEROL 136 <145 mg/dl 03/19/2019 9:59 AM INSPECTION CLERK [facility] CHOL/HDL RATIO 4.16 <4.50 03/19/2019 9:59 AM INSPECTION CLERK [facility] LDL CHOLESTEROL 97 <=130 mg/dL 03/19/2019 9:59 AM INSPECTION CLERK [facility] PROVIDER ORDERED STATUS FASTING 03/19/2019 9:59 AM INSPECTION CLERK [facility] Blood BLOOD SPECIMEN / Unknown Butterfly / Unknown 03/19/2019 9:30 AM INSPECTION CLERK 03/19/2019 9:35 AM INSPECTION CLERK Freddy Dumont MD CHEMISTRY [address] [address] * COLONOSCOPY SCREENING (09/20/2013) Colby Kennedy MD GI PROCEDURE ORD from Last 3 Months or Most Recently Relevant to Health Maintenance Additional Health Concerns Infection Onset Date Last Indicated Resolved Time 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 diff 10/0901/23/2024 01/23/2024 Advance Directives Documents on File Type Date Recorded Patient Fishing Vessel Deckhand Expl anation Healthcare Directive 02/25/2016 12:00 AM Healthcare Directive 02/04/2016 7:11 PM 2 17 JULY 2013 * Full Code (Latest Code Status on File) Date Activated Date Inactivated Comments 01/23/2024 2:20 AM Question Answer Comments Code Status Discussion: Unable to Assess Preferences, Provider to review later * DNR Date Activated Date Inactivated Comments 09/22/2023 12:16 [...] Answer Comments Code Status Discussion: Reviewed Preferences Care Teams Health And Safety Instructor Relationship Specialty Start Date End Date Rubén Boyle MD [address] [place] [address] PCP - General Family Practice 09/08/21 Nikole Gibbs, RN [address] [place] [address] License Inspector 12/20/13
--- OUTSIDE RECORDS SUMMARY | 2024-01-26 22:35 | XMS_ITS | Clinical Summary ---
Author Organization [facility] Address [address] [place] [address] Care Team Providers Care Senior Billing Consultant Name Role Phone Elsewhere, Pcp Primary Care Provider Unavailabl e Source Comments Patient records contain information from all sites at [facility]. For routine questions regarding patient records, call [phone] during business hours, M-F 8:00 AM - 5:00 PM Central Time. Record requests for emergency care only can be directed to [phone] at any time.[facility] Allergies Active Allergy Reactions Criticality Noted [...] Gastroesophageal Reflux Disease Without Esophagi tis 01/26/2016 Ui Developer With [employer] Use Of Insulin Active 12/29/2015 Hyperlipidemia 05/09/2015 [...] Done Comments CT Colonography 1950 Cologuard 1950 Depression Monitoring (PHQ-9) 1950 Diabetic Office [...] PPSV23 or PCV20) 02/09/2021 01/10/2018, 02/10/2016, 07/24/2010 Colonoscopy 03/31/2022 03/31/2017, 09/20/2013 Colorectal Cancer Surveillance 03/31/2022 Controlled Substance Agreement 12/06/2022 Controlled Substance Monitoring (PHQ-9) 12/06/2022 Controlled Substance Monitoring 12/06/2022 Opioid Risk Tool (ORT) 12/06/2022 PEG assessment for Opioid therapy 12/06/2022 Dilated Eye Exam 12/17/2022 12/17/2021, 08/18/2020 Office Visit for Blood Pressure Check / Re-check 04/01/2023 12/31/2022 Fall Risk Screen (Annual) 04/18/2023 Opioid Use Disorder (OUD) Screening 12/07/2023 COVID-19 Vaccine ( season) 2023 05/31/2023, 09/17/2021, 01/12/2021, Additional history exists Influenza Vaccine (#1) 2024 , 01/12/2022, 01/12/2021, Additional history exists Hemoglobin A1C 03/22/2024 09/21/2023, 11/17, 02/24/2022, Additional history exists Creatinine Level (Kidney Function Test) 09/23/2024 09/24/2023, 09/23/2023, 09/22/2023, Additional history exists Potassium Level 09/23/2024 09/24/2023, 06/0 10/2023, 09/22/2023, Additional history exists Sodium Level 09/23/2024 09/24/2023, 06/0 10/2023, 09/21/2023, Additional history exists Lipid (Cholesterol) Screening 02/01/2028 01/31/2023, 03/19/2019, 03/16/2018 HPV Vaccines Aged Out No [...] 12/24/2022 1:45 PM CDT Mary Romero APRN C.N.PReji LAB BLOOD A DD-ON Performing Organization Address [facility] Co de Phone Number [facility] [address] [place] [address], [place] [address] [place] [address] * (ABNORMAL) Hemoglobin A1c (12/14/2022 7:57 AM [...] LAB BLOOD A DD-ON Performing Organization Address [facility] Co de Phone Number [facility] [address] [place] [address], [place] [address] [place] [address] from Last 3 Months or Most Recently Relevant to Health Maintenance Advance Directives For more information, please contact: [phone] Documents on File Type Date Recorded Patient Plug Drill Operator Expl anation Advance Directives 12/06/2022 12:[address] Care Teams Senior Billing Consultant Relationship Specialty Start Date End Date Elsewhere, Pcp PCP - General Internal Medicine 01/06/23
--- OUTSIDE RECORDS SUMMARY | 2024-01-26 22:35 | XMS_ITS | Encounter Summary ---
Author Organization [facility] Address [address] [place] [address] Care Team Providers Care Chin Strap Cutter Name Role Phone Rubén Boyle MD Primary Care Provider Pamela Blanco CULTURIST Unavailable Pedro Segura MD Unavailable Freddy Craft MD Unavailable Abdifatah Van MD Unavailable Nicole Carranza CULTURIST Unavailable [phone] Andressa Ruiz-C Unavailable Ashlyn Storm RN Unavailable [phone] Rubén Gunter [facility] Unavailable Andressa Ruiz-C Unavailable Suzan Harry MD Unavailable [phone] Yasmeen Powers MD Unavailable Yasmeen Powers MD Unavailable [phone] Encounter Details Date Type Department Care Team (Late st Contact Info) Description 08/25/2016 External Order Results [facility] [address] [place] [address] Social History Tobacco Use Types [...] documented as of this encounter Care Teams Chin Strap Cutter Relationship Specialty Start Date End Date Rubén Boyle MD PCP - General Family Practice 03/08/16 Pamela Blanco CULTURIST [facility] [address] [place] [address] Referring Physician 07/13/16 Pedro Segura MD [facility] [address] [place] [address] Nephrology 10/03/16 Freddy Craft MD [address] [facility] [address] [place], [place] [address] Assigned Gastroenterology Provider 02/08/20 Abdifatah Van MD [address] [facility] [address] [place], [place] [address] Assigned Nephrology Provider 07/13/20 11/07/23 Nicole Carranza NP 420 [facility] [address] [place], [place] [address] Assigned Heart and Vascular Provider 01/09/22 Andressa Ruiz PA-C 420 [facility] [address] [place], [place] [id number] Physician Buyer Liaison Endocrinology, Diabetes, and Metabolism 03/01/22 Ashlyn Storm, RN [facility] [address] [place], [place] [id number] Registered Nurse 03/03/22 09/15/22 Rubén Gunter [facility] [address] [place], [place] [id number] Assigned MTM Pharmacist 02/27/22 Andressa Ruiz PA-C 420 [facility] [address] [place] [address] Assigned Endocrinology Provider 03/13/22 09/07/23 Suzan Harry MD [address] [place] [address] Nephrology 06/30/23 Yasmeen Powers MD [address] [place], [place] [address] Nephrology 10/24/23 Yasmeen Powers MD [address] [place], [place] [address] Assigned Nephrology Provider 11/08/23 documented as of this encounter
--- OUTSIDE RECORDS SUMMARY | 2024-01-26 22:35 | XMS_ITS | Encounter Summary ---
Author Organization [facility] Address [address] [place] [address] Care Team Providers Care Prison Guard Name Role Phone Rubén Boyle MD Primary Care Provider Pamela Blanco BIOENGINEER Unavailable Pedro Segura MD Unavailable [phone] Freddy Craft MD Unavailable [phone] Abdifatah Van MD Unavailable Nicole Carranza BIOENGINEER Unavailable [phone] Andressa Ruiz-C Unavailable [phone] Ashlyn Storm RN Unavailable [phone] Rubén Gunter [facility] Unavailable Andressa Ruiz-C Unavailable Suzan Harry MD Unavailable [phone] Yasmeen Powers MD Unavailable Yasmeen Powers MD Unavailable [phone] Encounter Details Date Type Department Care Team (Late st Contact Info) Description 08/17/2016 External Order Results [facility] [address] [place] [address] Social History Tobacco Use [...] documented as of this encounter Care Teams Prison Guard Relationship Specialty Start Date End Date Rubén Boyle MD PCP - General Family Practice 03/08/16 Pamela Blanco BIOENGINEER [facility] [address] [place] [address] Referring Physician 07/13/16 Pedro Segura MD [facility] [address] [place], [place] [address] Nephrology 10/03/16 Freddy Craft MD [address] [facility] [address] [place], [place] [address] Assigned Gastroenterology Provider 02/08/20 Abdifatah Van MD [address] [facility] [address] [place], [place] [address] Assigned Nephrology Provider 07/13/20 11/07/23 Nicole Carranza NP 420 [facility] [address] [place], [place] [address] Assigned Heart and Vascular Provider 01/09/22 Andressa Ruiz PA-C 420 [facility] [address] [place], [place] [address] Physician Weed Inspector Endocrinology, Diabetes, and Metabolism 03/01/22 Ashlyn Storm, RN [facility] [address] [place], [place] [address] Registered Nurse 03/03/22 09/15/22 Rubén Gunter [facility] [address] [place] [address] Assigned MTM Pharmacist 02/27/22 Andressa Ruiz PA-C 420 [facility] [address] [place] [address] Assigned Endocrinology Provider 03/13/22 09/07/23 Suzan Harry MD [address] [place] [address] Nephrology 06/30/23 Yasmeen Powers MD [address] [place] [address] Nephrology 10/24/23 Yasmeen Powers MD [address] [place] [address] Assigned Nephrology Provider 11/08/23 documented as of this encounter
--- OUTSIDE RECORDS SUMMARY | 2024-01-26 22:35 | XMS_ITS ---
Author Organization [facility] Address [address] [place] [address] Care Team Providers Care Offal Worker Name Role Phone Rubén Boyle MD Primary Care Provider Pamela Blanco BIG DATA DEVELOPER Unavailable [phone] Pedro Segura MD Unavailable [phone] Freddy Craft MD Unavailable Nicole Carranza BIG DATA DEVELOPER Unavailable [phone] Andressa Ruiz-C Unavailable [phone] Suzan Harry MD Unavailable [phone] Yasmeen Powers MD Unavailable [phone] Yasmeen Powers MD Unavailable [phone] Transplant Episode Kidney Recipient [facility] ([place], [place]) - [facility] Organ Received: 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 Marked as Active Follow-up on 07/11/2016 Kidney CoordinatorFelipa Raya RN Phone: N/A Fax: N/A Email: [email or web address] Information Organ ABO Source Meets Risk [...] Felipa Raya RN Kidney Coordinator N/A N/A [email or web address] Freddy Dumont MD Integration Software Engineer [phone] N/A Aime Vu MD Transplant Surgeon [phone] [email or web address] Events Post-Transplant Pre-Transplant Admitted: 07/02/2016 Referred: 06/15/2016 Transplanted: 07/11/2016 Evaluation began: 7 Discharged: 11/16/2016 Committee: 06/15/2016 Center waitlisted: 7 Dialysis History Dialysis History Start End Type Comments Center 05/05/2016
--- OUTSIDE RECORDS SUMMARY | 2024-01-26 22:35 | XMS_ITS ---
Author Organization [facility] Address [address] [place] [address] Care Team Providers Care Materials Buyer Name Role Phone Rubén Boyle MD Primary Care Provider [phone] Pamela Blanco CONTINUING EDUCATION SPECIALIST Unavailable [phone] Pedro Segura MD Unavailable Freddy Craft MD Unavailable Nicole Carranza CONTINUING EDUCATION SPECIALIST Unavailable [phone] Andressa Ruiz-C Unavailable Suzan Harry MD Unavailable [phone] Yasmeen Powers MD Unavailable [phone] Yasmeen Powers MD Unavailable [phone] Transplant Episode Liver Recipient [facility] ([place], [place]) - [facility] Organ Received: Liver Transplanted on 07/10/2016 Marked as Active Follow-up on 07/10/2016 Liver CoordinatorMalinda Alves RN Phone: N/A Fax: N/A Email: N/A [place] 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 [...] on file Toxoplasma No results on file JFEFY No results on file Care Team Name Role Phone Fax Email Malinda Alves RN Liver Coordinator N/A N/A N/A Freddy Dumont MD Factory Worker [phone] N/A Pamela Blanco NP Referring Physician [phone] N/A Aime Vu MD Transplant Surgeon [phone] [email or web address] Post-Transplant Pre-Transplant Admitted: 07/02/2016 Referred: 03/08/2016 Transplanted: 07/10/2016 Evaluation began: 6 Discharged: 08/02/2016 Committee: 07/06/2016 Center waitlisted: 7 Dialysis History Dialysis History Start End Type Comments Center 05/05/2016
--- OUTSIDE RECORDS SUMMARY | 2024-01-26 22:36 | XMS_ITS | Clinical Summary ---
Author Organization [facility] Address [address] [place] [address] Care Team Providers Care Concession Manager Name Role Phone Rubén Boyle MD Primary Care Provider Source Comments You are receiving this document as you are listed as the primary care provider,follow-up provider, or the patient has been referred to you for consultation.This is in compliance with the Medicare and[facility] Hospital[facility] EHR Incentive Program,which states Providers who transition their patient to another setting of careor provider of care or refers their patient to another provider of care shouldprovide summary care record for each transition of care or referral. [facility] Allergies No known active allergies Medications Medication [...] Comments Blood Pressure 112/66 03/25/2016 10:51 AM FAMILY WELFARE SOCIAL WORK PROFESSOR Pulse 70 03/25/2016 10:51 AM FAMILY WELFARE SOCIAL WORK PROFESSOR Temperature 36.7 ??C (98.1 ??F) 03/19/2016 3:05 PM CS T Respiratory Rate 16 03/25/2016 10:5 1 AM FAMILY WELFARE SOCIAL WORK PROFESSOR Oxygen Saturation 99% 03/25/2016 10: 51 AM FAMILY WELFARE SOCIAL WORK PROFESSOR Inhaled Oxygen Concentration - - Weight 121.4 kg (267 lb 11.2 oz) 2015 10:50 AM FAMILY WELFARE SOCIAL WORK PROFESSOR Height 177.8 cm (5' 10) 03/02/2016 1:12 PM FAMILY WELFARE SOCIAL WORK PROFESSOR Body Mass Index 38.41 03/02/2016 1:12 PM FAMILY WELFARE SOCIAL WORK PROFESSOR Plan of Treatment Health Maintenance Due Date [...] on patient's age to complete this topic Infant RSV Aged Out No longer eligi ble based on patient's age to complete this topic MCV4 Aged Out No longer eligi ble based on patient's age to complete this topic Procedures Procedure Name Priority Date/Time Associated Diagnosis Comments CREATININE / GFR STAT 03/19/2016 11:5 8 AM FAMILY WELFARE SOCIAL WORK PROFESSOR Chronic kidney disease, stage III (moderate) (HRC) HEPATITIS C ANTIBODY, WITH REFLEX Specified Time 02/06/2016 5:44 AM CDT from Last 3 Months or Most Recently Relevant to Health Maintenance Results * (ABNORMAL) Creatinine - today (03/19/2016 11:58 AM FAMILY WELFARE SOCIAL WORK PROFESSOR) Creatinine Serum 1.43(H) 0.73 - 1.18 mg/dL PN SOFT Est GFR Am >60 >60 mL/min/1.7 3m2 PN SOFT Est GFR Non-Afr Am 52(L) >60 mL/min/1.7 3m2 PN SOFT Comment: Normal>60, moderate decrease 30 - 59, severe decrease 15 - 29, renal failure <15 mL/min/1.73 m2 NOTE: ??Choose the eGFR result above appropriate for the race of the patient. 03/19/2016 11:5 8 AM FAMILY WELFARE SOCIAL WORK PROFESSOR 03/19/2016 12:01 PM FAMILY WELFARE SOCIAL WORK PROFESSOR Narrative PN SOFT - 03/19/2016 12:25 PM FAMILY WELFARE SOCIAL WORK PROFESSOR Performed at [address] [address] CLIA number [id number] Pedro Bundy MD LAB_1 Performing Organization Address [facility] de Phone Number PN SOFT [address] [place] [address] * Hepatitis C Virus Anette In-House (02/06/2016 5:44 AM CDT) Hepatitis C Antibody Nonreactive Nonreactive PN SOFT 02/06/2016 5:44 AM CDT 02/06/2016 6:13 AM CDT Narrative PN SOFT - 02/06/2016 7:03 AM CDT Performed at [facility], [address] [place] [address] CLIA number [id number] Prateek Langley MD LAB_1 Performing Organization Address [facility] de Phone Number PN Spark [employer] [address] [place] [address] from Last 3 Months or Most Recently Relevant to Health Maintenance Advance Directives Documents on File Type Date Recorded 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
== END 2024-01-23 00:56 | disposition home or self-care (01) ==
LOC: AMB 01-26 22:23
PROVIDERS: PCP Family Medicine; Visit Provider Family Medicine
DX: N12 Tubulo-interstitial nephritis, not specified as acute or chronic (principal)
CPT/HCPCS: A0425; A0429

== ENCOUNTER 2024-02-16 13:54 | Outpatient (RCR) | payer MEDICARE, BC, SELFPAY ==
--- NOTE | 2024-09-07 10:40 | PC.SOCIAL ---
Social work: Late entry: On 09/06/24, received call from Makenna Marquez at [facility] stating they have an open case on this patient and requesting Discharge Summaries from hospital stays be sent. Secure emailed requested information to Makenna Marquez and confirmed receipt.
== END 2025-01-16 08:23 | disposition home or self-care (01) ==
LOC: LAB 13:54
PROVIDERS: PCP Family Medicine; Visit Provider Internal Medicine
DX: Z79.899 Other long term (current) drug therapy (principal); Z94.0 Kidney transplant status; Z98.890 Other specified postprocedural states
CPT/HCPCS: 36415; 80048; 80197; 83735; 85025